=== PATIENT | female | born 1935 | race Hispanic/Latino ===

== ENCOUNTER 2017-12-26 17:39 | Inpatient (IN) | payer MEDICARE, OTHER ==
[2017-12-26 19:09] LABS: Absolute Lymphocytes (CBC) 2.3 K/uL (0.7-4.9); Absolute Monocytes 0.6 K/uL (0.1-1.3); Absolute Neutrophil 4.2 K/uL (1.8-8.0); Basophils % 0.6 % (0-1.3); Hematocrit 40.2 % (36.0-45.0); Lymphocytes % 31.4 % (15.3-44.8); MCH 30.3 pg (27.0-35.0); MPV 8.3 fL (7.6-11.3); Monocytes % 7.8 % (3.3-12.3); RBC Red Blood Cell Count 4.52 M/uL (3.86-4.86)
[2017-12-26] MEDS ORDERED: NA CHLORIDE 0.9% 1,000 ML ONE (19:14)
--- NOTE | 2017-12-26 19:28 | RAD REPORT ---
EXAM DESCRIPTION: RAD - Chest Single View - 12/26/2017 7:20 pm CLINICAL HISTORY: MALAISE Chest pain. COMPARISON: CHEST PA AND LAT 2 VIEW dated 11/10/2009 FINDINGS: Portable technique limits examination quality. The lungs are mildly emphysematous but grossly clear. The heart is normal in size. No displaced fract ures. IMPRESSION: Mild COPD.
[2017-12-26 19:29] LABS: ALT/SGPT 36 U/L (12-78); AST/SGOT 29 U/L (15-37); Albumin 3.7 g/dL (3.4-5.0); Alkaline Phosphatase 96 U/L (45-117); BUN Blood Urea Nitrogen 8 mg/dL (7-18); Bicarbonate 30 mmol/L (21-32); Bilirubin Direct 0.1 mg/dL (0-0.2); Bilirubin Total 0.4 mg/dL (0.2-1.0); Glucose Level 120 mg/dL (74-106); Lipase 241 U/L (73-393); Magnesium 2.2 mg/dL (1.8-2.4); NT PRO-BNP 57 pg/mL (<450); Potassium 3.9 mmol/L (3.5-5.1); Protein, Total 7.2 g/dL (6.4-8.2); Sodium Level 141 mmol/L (136-145); Troponin (Emerg Dept Use Only) < 0.02 ng/mL (0.0-0.045)
--- NOTE | 2017-12-26 20:30 | EDPHYS ---
Physician Documentation [facility] Name: Erika Jacobson Age: 82 yrs Sex: Female : 1935 Arrival Date: 12/26/2017 Time: 17:40 Bed 20 Private MD: ED Physician Charly Guo HPI: 12/26 20:24 This 82 yrs old Female presents to ER via EMS with complaints of General roxanna Weakness. 20:24 The patient's problem is reported as a facial droop, weakness, in the left upper roxanna extremity, in the left lower extremity, in the left side of face. Onset: The symptoms/episode began/occurred 3 day(s) ago. Duration: The episode is continuous, improving. Context: the episode(s) was witnessed, by family. The symptoms are alleviated by nothing. The symptoms are aggravated by nothing. Associated signs and symptoms: The patient has no apparent associated signs or symptoms. Severity of symptoms: At their worst the symptoms were mild moderate in the emergency department the symptoms have improved mildly. Historical: - Allergies: 17:53 No Known Allergies; hj - Home Meds: 17:53 amlodipine 5 mg tab 1 tab once daily [Active]; aspirin 81 mg Oral chew 1 tab once daily hj [Active]; atorvastatin 40 mg oral tab 1 tab once daily [Active]; losartan 100 mg oral tab 1 tab once daily [Active]; tramadol 50 mg Oral tab 1 tab every 4-6 hours [Active]; - PMHx: 17:53 Hypertension; Hyperlipidemia; CVA; hj - PSHx: 17:53 Unable to obtain; hj - Immunization history:: Adult Immunizations unknown. - Social history:: Smoking status: Patient/guardian denies using tobacco, Patient/guardian denies using alcohol. - Ebola Screening: : Patient negative for fever greater than or equal to 101.5 degrees Fahrenheit, and additional compatible Ebola Virus Disease symptoms Patient denies exposure to infectious person Patient denies travel to an Ebola-affected area in the 21 days before illness onset. - Family history:: not pertinent. ROS: 20:24 Constitutional: Negative for fever, chills, and weight loss, Eyes: Negative for injury, roxanna pain, redness, and discharge, ENT: Negative for injury, pain, and discharge, Neck: Negative for injury, pain, and swelling, Cardiovascular: Negative for chest pain, palpitations, and edema, Respiratory: Negative for shortness of breath, cough, wheezing, and pleuritic chest pain, Abdomen/GI: Negative for abdominal pain, nausea, vomiting, diarrhea, and constipation, Back: Negative for injury and pain, : Negative for injury, bleeding, discharge, and swelling, MS/Extremity: Negative for injury and deformity, Skin: Negative for injury, rash, and discoloration, Psych: Negative for depression, anxiety, suicide ideation, homicidal ideation, and hallucinations, Allergy/Immunology: Negative for hives, rash, and allergies, Endocrine: Negative for neck swelling, polydipsia, polyuria, polyphagia, and marked weight changes, Hematologic/Lymphatic: Negative for swollen nodes, abnormal bleeding, and unusual bruising. 20:24 Neuro: Positive for weakness. Exam: 20:24 Radiologist reports: see report roxanna 20:24 Constitutional: This is a well developed, well nourished patient who is awake, alert, and in no acute distress. Head/Face: Normocephalic, atraumatic. Eyes: Pupils equal round and reactive to light, extra-ocular motions intact. Lids and lashes normal. Conjunctiva and sclera are non-icteric and not injected. Cornea within normal limits. Periorbital areas with no swelling, redness, or edema. ENT: Nares patent. No nasal discharge, no septal abnormalities noted. Tympanic membranes are normal and external auditory canals are clear. Oropharynx with no redness, swelling, or masses, exudates, or evidence of obstruction, uvula midline. Mucous membranes moist. Neck: Trachea midline, no thyromegaly or masses palpated, and no cervical lymphadenopathy. Supple, full range of motion without nuchal rigidity, or vertebral point tenderness. No Meningismus. Chest/axilla: Normal chest wall appearance and motion. Nontender with no deformity. No lesions are appreciated. Cardiovascular: Regular rate and rhythm with a normal S1 and S2. No gallops, murmurs, or rubs. Normal PMI, no JVD. No pulse deficits. Respiratory: Lungs have equal breath sounds bilaterally, clear to auscultation and percussion. No rales, rhonchi or wheezes noted. No increased work of breathing, no retractions or nasal flaring. Abdomen/GI: Soft, non-tender, with normal bowel sounds. No distension or tympany. No guarding or rebound. No evidence of tenderness throughout. Back: No spinal tenderness. No costovertebral tenderness. Full range of motion. Skin: Warm, dry with normal turgor. Normal color with no rashes, no lesions, and no evidence of cellulitis. Psych: Awake, alert, with orientation to person, place and time. Behavior, mood, and affect are within normal limits. 20:24 Musculoskeletal/extremity: Exam is negative for Circulation is intact in all extremities. Sensation intact. Compartment Syndrome exam of affected extremity: is normal. 20:24 Neuro: Orientation: is normal, appropriate for stated age, no acute changes, Mentation: no acute changes, slow to respond, Memory: appropriate for stated age, no acute changes, Motor: moves all fours, Gait: not tested. seizure activity, is not displayed by the patient. Vital Signs: 17:54 BP 138 / 53; Pulse 80; Resp 18; Temp 98.1(TE); Pulse Ox 98% on R/A; Weight 58.97 kg; Height 5 ft. 4 in. (162.56 cm); Pain 0/10; 18:42 BP 147 / 44; Pulse 81; Resp 18; Pulse Ox 100% on R/A; hj 19:00 BP 149 / 50; Pulse 66; Resp 18; Pulse Ox 98% ; ea 20:30 BP 144 / 51; Pulse 70; Resp 18; Pulse Ox 98% ; ea 21:00 BP 154 / 66; Pulse 70; Resp 18; Pulse Ox 98% on R/A; ea 22:06 BP 146 / 53; Pulse 74; Resp 18; Temp 98; Pulse Ox 99% ; ea 17:54 Body Mass Index 22.31 (58.97 kg, 162.56 cm) NIH Stroke Scale Scores: 18:08 NIHSS Score: 3 20:28 NIHSS Score: 0 [facility] MDM: 18:49 Patient medically screened. [facility] 20:27 Data reviewed: vital signs, nurses notes, lab test result(s), EKG, radiologic studies, [facility] CT scan, plain films. 12/26 18:28 Order name: Basic Metabolic Panel; Complete Time: 20:23 12/26 18: Order name: CBC with Diff; Complete Time: 20:23 12/26 18: Order name: LFT's; Complete Time: 20:23 12/26 18:28 Order name: Magnesium; Complete Time: 20:23 12/26 18:28 Order name: NT PRO-BNP; Complete Time: 20:23 12/26 18:28 Order name: PT-INR; Complete Time: 20:23 12/26 18:28 Order name: Troponin (emerg Dept Use Only); Complete Time: 20:23 12/26 18:28 Order name: XRAY Chest (1 view); Complete Time: 20:23 12/26 18:54 Order name: Blood Culture Adult (2) [facility] 12/26 18:54 Order name: Urine Culture [facility] 12/26 19:10 Order name: Lipase; Complete Time: 20:23 [facility] 12/26 20:07 Order name: Urine Dipstick--Ancillary (enter results) [facility] 12/26 20:23 Order name: CT Head Brain wo Cont [facility] 12/26 18:06 Order name: EKG Electrocardiogram; Complete Time: 18:28 [facility] 12/26 18:28 Order name: EKG; Complete Time: 18:29 12/26 18:28 Order name: Cardiac monitoring; Complete Time: 18:28 12/26 18:28 Order name: IV Saline Lock; Complete Time: 18:29 12/26 18:28 Order name: Labs collected and sent; Complete Time: 18:29 12/26 18:28 Order name: O2 Per Protocol; Complete Time: 18:29 12/26 18:28 Order name: O2 Sat Monitoring; Complete Time: 18:29 12/26 18:54 Order name: Urine Dipstick-Ancillary (obtain specimen); Complete Time: 18:54 [facility] 12/26 20:32 Order name: CONS Physician Consult EDDC Administered Medications: 19:15 Drug: NS 0.9% 1000 ml Route: IV; Rate: 125 ml/hr; Site: left antecubital; ea 21:45 Follow up: IV Status: Infusion continued upon admission ea 20:40 Drug: foLIC Acid 1 mg Route: IVPB; Site: left antecubital; ea 21:47 Follow up: Response: No adverse reaction; IV Status: Completed infusion ea 20:40 Drug: Aspirin 162 mg Route: PO; ea 21:49 Follow up: Response: No adverse reaction ea Point of Care Testing: Blood Glucose: 18:26 Blood Glucose: 105 mg/dL; Ranges: Critical Glucose Levels:Adult <50 mg/dl or >400 mg/dl <40 mg/dl or >180 mg/dl Disposition: 12/26/17 20:29 Hospitalization ordered by Analy Garcia for Observation. Preliminary diagnosis is Weakness. - Bed requested for Telemetry/MedSurg (observation). - Status is Observation. ea - Condition is Stable. - Problem is new. - Symptoms have improved. UTI on Admission? No NIH Stroke Scale - NIH Stroke Score Date: 12/26/2017 Time: 18:08 Total Score = 3 1a. Level of Consciousness (LOC) - 0(Alert) 1b. Level of Consciousness (LOC) (Year \T\ Age) - 0(Both) 1c. LOC Commands (Open \T\ Closes Eyes/Industrial Health And Safety Professor) - 0(Both) 2. Best Gaze (Lateral Gaze Paresis) - 0(Normal) 3. Visual Field Loss - 0(No visual loss) 4. Facial Palsy - 2(Partial paralysis) 5a. Left Arm: Motor (10-second hold) - 0(No drift) 5b. Right Arm: Motor (10-second hold) - 0(No drift) 6a. Left Leg: Motor (5-second hold - always test supine) - 0(No drift) 6b. Right Leg: Motor (5-second hold - always test supine) - 0(No drift) 7. Limb Ataxia (finger/nose \T\ heel/mistry - test with eyes open) - 0(Absent) 8. Sensory Loss (pinprick arms/legs/face) - 0(Normal) 9. Best Language: Aphasia (description/naming/reading) - 1(Mild to moderate aphasia) 10. Dysarthria (speech clarity - read or repeat words) - 0(Normal) 11. Extinction and Inattention (visual/tactile/auditory/spatial/personal) - 0(No abnormality) Initials: NIH Stroke Scale - NIH Stroke Score Date: 12/26/2017 Time: 20:28 Total Score = 0 1a. Level of Consciousness (LOC) - 0(Alert) 1b. Level of Consciousness (LOC) (Year \T\ Age) - 0(Both) 1c. LOC Commands (Open \T\ Closes Eyes/Industrial Health And Safety Professor) - 0(Both) 2. Best Gaze (Lateral Gaze Paresis) - 0(Normal) 3. Visual Field Loss - 0(No visual loss) 4. Facial Palsy - 0(Normal) 5a. Left Arm: Motor (10-second hold) - 0(No drift) 5b. Right Arm: Motor (10-second hold) - 0(No drift) 6a. Left Leg: Motor (5-second hold - always test supine) - 0(No drift) 6b. Right Leg: Motor (5-second hold - always test supine) - 0(No drift) 7. Limb Ataxia (finger/nose \T\ heel/mistry - test with eyes open) - 0(Absent) 8. Sensory Loss (pinprick arms/legs/face) - 0(Normal) 9. Best Language: Aphasia (description/naming/reading) - 0(No aphasia) 10. Dysarthria (speech clarity - read or repeat words) - 0(Normal) 11. Extinction and Inattention (visual/tactile/auditory/spatial/personal) - 0(No abnormality) Initials: [facility] Signatures: Dispatcher [employer] [facility] Charly Guo MD MD cha Joaquin, Henry, RN RN hj Garcia, Cindy, RN RN Yisel Mclean RN RN ea Corrections: (The following items were deleted from the chart) 19:09 18:54 LIPASE+C.LAB.BRZ ordered. [facility] 21:29 20:29 Hospitalization Ordered by Analy Garcia MD for Observation. Preliminary cg diagnosis is Weakness. Bed requested for Telemetry/MedSurg (observation). Status is Observation. Condition is Stable. Problem is new. Symptoms have improved. UTI on Admission? No. [facility] 22:07 21:29 12/26/2017 20:29 Hospitalization Ordered by Analy Garcia MD for ea Observation. Preliminary diagnosis is Weakness. Bed requested for Telemetry/MedSurg (observation). Status is Observation. Condition is Stable. Problem is new. Symptoms have improved. UTI on Admission? No. cg
--- NOTE | 2017-12-26 20:30 | ER ---
Nurse's Notes [facility] Name: Erika Jacobson Age: 82 yrs Sex: Female : 1935 Arrival Date: 12/26/2017 Time: 17:40 Bed 20 Private MD: Diagnosis: Weakness Presentation: 12/26 17:45 Presenting complaint: EMS states: Monday, pt started having general weakness and hj yesterday had facial droop on the L side, was brought to [facility] and was D/C'd and was told to follow up with neurologist; today after lunch, family member noticed pt was leaning on the L side and weakness was more profound; pt is kyrgyz speaking only; hx of stroke May 2017; BGL- 142; 20g L AC;. Transition of care: patient was not received from another setting of care. Onset of symptoms was December 26, 2017 at 16:00. Risk Assessment: Do you want to hurt yourself or someone else? Patient reports no desire to harm self or others. Initial Sepsis Screen: Does the patient meet any 2 criteria? No. Patient's initial sepsis screen is negative. Does the patient have a suspected source of infection? No. Patient's initial sepsis screen is negative. Care prior to arrival: None. 17:45 Method Of Arrival: EMS: [facility] 17:45 Acuity: ISHAN 3 17:45 Note spoke with FRED Albert, code stroke was not called, S/Sx more than 12 hours;. hj Triage Assessment: 17:53 General: Appears in no apparent distress. uncomfortable, Behavior is calm, cooperative, hj appropriate for age. Pain: Denies pain. Historical: - Allergies: 17:53 No Known Allergies; hj - Home Meds: 17:53 amlodipine 5 mg tab 1 tab once daily [Active]; aspirin 81 mg Oral chew 1 tab once daily hj [Active]; atorvastatin 40 mg oral tab 1 tab once daily [Active]; losartan 100 mg oral tab 1 tab once daily [Active]; tramadol 50 mg Oral tab 1 tab every 4-6 hours [Active]; - PMHx: 17:53 Hypertension; Hyperlipidemia; CVA; hj - PSHx: 17:53 Unable to obtain; hj - Immunization history:: Adult Immunizations unknown. - Social history:: Smoking status: Patient/guardian denies using tobacco, Patient/guardian denies using alcohol. - Ebola Screening: : Patient negative for fever greater than or equal to 101.5 degrees Fahrenheit, and additional compatible Ebola Virus Disease symptoms Patient denies exposure to infectious person Patient denies travel to an Ebola-affected area in the 21 days before illness onset. - Family history:: not pertinent. Screenin:53 Abuse screen: Denies threats or abuse. Denies injuries from another. Nutritional hj screening: No deficits noted. Tuberculosis screening: No symptoms or risk factors identified. Fall Risk Fall in past 12 months (25 points). 18:08 The patient has not been NPO before screening. The patient is alert, able to follow hj commands. The patient does not exhibit slurred or garbled speech The patient is not exhibiting difficulty speaking. The patient does not exhibit difficulty understanding words. The patient is able to swallow own secretions with no drooling or need for suction. Patient tolerated one teaspoon of water. No drooling, immediate coughing, gurgling, or clearing of the throat was noted. The patient tolerated 90mL of water. No drooling, immediate coughing, gurgling, or clearing of the throat was noted. Assessment: 18:00 General: Appears in no apparent distress. uncomfortable, Behavior is calm, cooperative, hj appropriate for age. Pain: Denies pain. Neuro: Level of Consciousness is awake, alert, obeys commands, Oriented to person, place, time, situation, Appropriate for age. Cardiovascular: Capillary refill < 3 seconds Patient's skin is warm and dry. Respiratory: Airway is patent Respiratory effort is even, unlabored, Respiratory pattern is regular, symmetrical. GI: No signs and/or symptoms were reported involving the gastrointestinal system. : No signs and/or symptoms were reported regarding the genitourinary system. EENT: facial droop. Derm: No signs and/or symptoms reported regarding the dermatologic system. Musculoskeletal: Reports weakness in right arm, left arm, right leg and left leg. 18:20 Reassessment: reinforced with CN to follow up provider to sign up;. hj 18:26 Reassessment: family in room; awaiting provider to sign up;. hj 19:30 General: Appears in no apparent distress. Behavior is calm, cooperative, appropriate ea for age. Pain: Denies pain. Neuro: Level of Consciousness is awake, alert, obeys commands, Oriented to person, place, time, situation, Appropriate for age. Cardiovascular: Patient's skin is warm and dry. Respiratory: Airway is patent Respiratory effort is even, unlabored, Respiratory pattern is regular, symmetrical. GI: Abdomen is non-distended, Bowel sounds present X 4 quads. : Parent/caregiver report the patient having Daughter reports mother had two incontinent episodes last night, reported it was not like her mother to have incontinence. EENT:. Derm: No signs and/or symptoms reported regarding the dermatologic system. Musculoskeletal: Reports weakness in left leg and right leg and left arm and right arm. 20:55 Reassessment: Patient and/or family updated on plan of care and expected duration. Pain ea level reassessed. Patient is alert, oriented x 3, equal unlabored respirations, skin warm/dry/pink. 21:31 Reassessment: Patient and/or family updated on plan of care and expected duration. Pain ea level reassessed. Patient is alert, oriented x 3, equal unlabored respirations, skin warm/dry/pink. 21:49 Reassessment: Report given to Erika PALAFOX on fourth floor. ea 22:06 Reassessment: Patient and/or family updated on plan of care and expected duration. Pain ea level reassessed. Patient is alert, oriented x 3, equal unlabored respirations, skin warm/dry/pink. Vital Signs: 17:54 BP 138 / 53; Pulse 80; Resp 18; Temp 98.1(TE); Pulse Ox 98% on R/A; Weight 58.97 kg; Height 5 ft. 4 in. (162.56 cm); Pain 0/10; 18:42 BP 147 / 44; Pulse 81; Resp 18; Pulse Ox 100% on R/A; hj 19:00 BP 149 / 50; Pulse 66; Resp 18; Pulse Ox 98% ; ea 20:30 BP 144 / 51; Pulse 70; Resp 18; Pulse Ox 98% ; ea 21:00 BP 154 / 66; Pulse 70; Resp 18; Pulse Ox 98% on R/A; ea 22:06 BP 146 / 53; Pulse 74; Resp 18; Temp 98; Pulse Ox 99% ; ea 17:54 Body Mass Index 22.31 (58.97 kg, 162.56 cm) NIH Stroke Scale Scores: 18:08 NIHSS Score: 3 hj 20:28 NIHSS Score: 0 [facility] ED Course: 17:40 Patient arrived in ED. hj 17:45 Douglas Payne, VIVIENNE is Primary Nurse. hj 17:50 Triage completed. hj 17:53 Arm band placed on right wrist. hj 17:53 Patient has correct armband on for positive identification. Placed in gown. Bed in low hj position. Call light in reach. Side rails up X 1. Adult w/ patient. 18:03 EKG done, by aviation electrical technician. reviewed by Saw Ruiz MD. 3 18:03 Maintain EMS IV. Dressing intact. Good blood return noted. Site clean \T\ dry. Gauge \T\ hj site: 20 g L AC;. 18:49 Charly Guo MD is Attending Physician. [facility] 18:55 Urine Culture Sent. 19:00 Report given to VIVIENNE Morillo. 19:20 XRAY Chest (1 view) In Process Unspecified. EDMS 20:10 Yisel Mclean RN is Primary Nurse. ea 20:28 Analy Garcia MD is Hospitalizing Provider. roxanna 20:41 CT Head Brain wo Cont In Process Unspecified. EDMS 21:31 No provider procedures requiring assistance completed. Patient admitted, IV remains in ea place. Administered Medications: 19:15 Drug: NS 0.9% 1000 ml Route: IV; Rate: 125 ml/hr; Site: left antecubital; ea 21:45 Follow up: IV Status: Infusion continued upon admission ea 20:40 Drug: foLIC Acid 1 mg Route: IVPB; Site: left antecubital; ea 21:47 Follow up: Response: No adverse reaction; IV Status: Completed infusion ea 20:40 Drug: Aspirin 162 mg Route: PO; ea 21:49 Follow up: Response: No adverse reaction Point of Care Testing: Blood Glucose: 18:26 Blood Glucose: 105 mg/dL; Ranges: Outcome: 20:29 Decision to Hospitalize by Provider. roxanna 21:32 Instructed on the need for admit, Demonstrated understanding of instructions. ea 22:07 Admitted to Med/surg accompanied by tech, room 426, with chart, Report called to Erika marcus RN 22:07 Condition: stable 22:07 Patient left the ED. NIH Stroke Scale - NIH Stroke Score Date: 12/26/2017 Time: 18:08 Total Score = 3 1a. Level of Consciousness (LOC) - 0(Alert) 1b. Level of Consciousness (LOC) (Year \T\ Age) - 0(Both) 1c. LOC Commands (Open \T\ Closes Eyes/National Account Representative) - 0(Both) 2. Best Gaze (Lateral Gaze Paresis) - 0(Normal) 3. Visual Field Loss - 0(No visual loss) 4. Facial Palsy - 2(Partial paralysis) 5a. Left Arm: Motor (10-second hold) - 0(No drift) 5b. Right Arm: Motor (10-second hold) - 0(No drift) 6a. Left Leg: Motor (5-second hold - always test supine) - 0(No drift) 6b. Right Leg: Motor (5-second hold - always test supine) - 0(No drift) 7. Limb Ataxia (finger/nose \T\ heel/mistry - test with eyes open) - 0(Absent) 8. Sensory Loss (pinprick arms/legs/face) - 0(Normal) 9. Best Language: Aphasia (description/naming/reading) - 1(Mild to moderate aphasia) 10. Dysarthria (speech clarity - read or repeat words) - 0(Normal) 11. Extinction and Inattention (visual/tactile/auditory/spatial/personal) - 0(No abnormality) Initials: NIH Stroke Scale - NIH Stroke Score Date: 12/26/2017 Time: 20:28 Total Score = 0 1a. Level of Consciousness (LOC) - 0(Alert) 1b. Level of Consciousness (LOC) (Year \T\ Age) - 0(Both) 1c. LOC Commands (Open \T\ Closes Eyes/National Account Representative) - 0(Both) 2. Best Gaze (Lateral Gaze Paresis) - 0(Normal) 3. Visual Field Loss - 0(No visual loss) 4. Facial Palsy - 0(Normal) 5a. Left Arm: Motor (10-second hold) - 0(No drift) 5b. Right Arm: Motor (10-second hold) - 0(No drift) 6a. Left Leg: Motor (5-second hold - always test supine) - 0(No drift) 6b. Right Leg: Motor (5-second hold - always test supine) - 0(No drift) 7. Limb Ataxia (finger/nose \T\ heel/mistry - test with eyes open) - 0(Absent) 8. Sensory Loss (pinprick arms/legs/face) - 0(Normal) 9. Best Language: Aphasia (description/naming/reading) - 0(No aphasia) 10. Dysarthria (speech clarity - read or repeat words) - 0(Normal) 11. Extinction and Inattention (visual/tactile/auditory/spatial/personal) - 0(No abnormality) Initials: roxanna Signatures: Dispatcher [employer] Charly Biswas MD MD cha Joaquin, Henry, RN RN Yisel Kang, RN RN Aaliyah Cartagena 3
[2017-12-26 20:44] LABS: Urine Blood TRACE (NEG); Urine Glucose NEGATIVE (NEG); Urine Protein NEGATIVE (NEG); Urine pH 6.5 (5.0-7.0)
--- NOTE | 2017-12-26 20:48 | RAD REPORT ---
EXAM DESCRIPTION: CT - Head Brain Wo Cont - 12/26/2017 8:42 pm CLINICAL HISTORY: WEAKNESS CVA COMPARISON: No comparisons TECHNIQUE: All CT scans are performed using dose optimization technique as appropriate and may inclu de automated exposure control or mA/KV adjustment according to patient size. FINDINGS: No intracranial hemorrhage, hydrocephalus or extra-axial fluid collection.Mild generalized brain atrophy is present with mild periventricular and deep white matter chronic microvascular ische kishore changes.No areas of brain edema or evidence of midline shift. The paranasal sinuses and mastoids are clear. The calvarium is intact. IMPRESSION: No acute intracranial abnormality.
[2017-12-26] MEDS ORDERED: ASPIRIN 81 MG CHEWABLE TABLET ONE (21:04)
[2017-12-26] MEDS ORDERED: FOLIC ACID 5 MG/ML VIAL ONE (21:05)
[2017-12-26] MEDS ORDERED: ONDANSETRON 4 MG/2 ML VIAL IV PRN (21:29)
--- NOTE | 2017-12-26 21:43 | P.HP ---
Certification for Inpatient Patient admitted to: Observation With expected LOS: <2 Midnights Practitioner: I am a practitioner with admitting privileges, knowledge of patient current condition, hospital course, and medical plan of care. Services: Services provided to patient in accordance with Admission requirements found in Title 42 Section 412.3 of the Code of Federal Regulations Patient History Date of Service: 12/26/17 Reason for admission: CVA History of Present Illness: Ms Zhou is an 82-year-old woman hypertension, dyslipidemia, and previous CVA , who wad at [facility] 2 days ago when she was noticed to start leaning to her left side. Her daughter took her blood pressure, and pain was about 180s of systolic. She received her blood pressure medication, and BP decreased. The next day, the patient remained symptomatic. She also start to be confused and having left facial drop. She went to [place] [facility], and she was discharged with an order to see a neurologist. Today her daughter got concerned again there was no improvement, and decided to bring the patient to ER for evaluation. Allergies No Known Allergies Allergy (Verified 03/04/15 08:55) Home medications list reviewed: Yes Home Medications: Atenolol [Tenormin*] 50 mg PO BID 03/04/15 Losartan Potassium [Cozaar*] 50 mg PO DAILY 03/04/15 Pravastatin [Pravachol*] 20 mg PO BEDTIME 03/04/15 hydroCHLOROthiazide [Hydrochlorothiazide*] 12.5 mg PO DAILY 03/04/15 - Past Medical/Surgical History -: Hypertension -: Dyslipidemia -: CVA Past Surgical History: Unable to obtain - Family History Family History: Reviewed- Non-Contributory - Social History Smoking Status: Never smoker Alcohol use: No CD- Drugs: No Place of Residence: Home Review of Systems 10-point ROS is otherwise unremarkable Physical Examination - Physical Exam General: Alert, In no apparent distress, Confused HEENT: Atraumatic, Mucous membr. moist/pink, EOMI, Sclerae nonicteric Neck: Supple, 2+ carotid pulse no bruit, No LAD, Without JVD or thyroid abnormality Respiratory: Clear to auscultation bilaterally, Normal air movement Cardiovascular: Normal S1 S2, No gallops Gastrointestinal: Normal bowel sounds, No tenderness Musculoskeletal: No tenderness Integumentary: No rashes Neurological: Normal speech, Normal tone, Normal affect, Abnormal strength ( Left arm 3/5, left leg 4/5, left facial drop) Lymphatics: No axilla or inguinal lymphadenopathy - Studies Laboratory Data (last 24 hrs) 12/26/17 18:54: Lipase Cancelled 12/26/17 18:25: PT 11.8, INR 1.00 12/26/17 18:25: WBC 7.3, Hgb 13.7, Hct 40.2, Plt Count 326 12/26/17 18:25: Sodium 141, Potassium 3.9, BUN 8, Creatinine 0.60, Glucose 120 H , Magnesium 2.2, Total Bilirubin 0.4, AST 29, ALT 36, Alkaline Phosphatase 96, Lipase 241 Assessment and Plan - Problems (Diagnosis) (1) CVA (cerebral vascular accident) Current Visit: Yes Status: Acute Qualifiers: CVA mechanism: unspecified Qualified Code(s): I63.9 - Cerebral infarction, unspecified (2) Hypertension Current Visit: Yes Status: Acute Qualifiers: Hypertension type: essential hypertension Qualified Code(s): I10 - Essential (primary) hypertension (3) Dyslipidemia Current Visit: Yes Status: Acute - Plan The patient will be admitted to the hospital due to possible acute/subacute CVA. CT head shows no acute abnormality. Will order brain MRI, echo, bilateral carotid Doppler, start aspirin, statins, keep her NPO until swallow evaluation, consult neurologist for evaluation recommendation. - Advance Directives Does patient have a Living Will: No Does patient have a Durable POA for Healthcare: No - Code Status/Comfort Care Code Status Assessed: Yes Code Status: Full Code
[2017-12-26] MEDS: NA CHLORIDE 0.9% 1,000 ML IV SCH (23:27)
[2017-12-27 04:37] LABS: Absolute Lymphocytes (CBC) 2.2 K/uL (0.7-4.9); Absolute Monocytes 0.5 K/uL (0.1-1.3); Absolute Neutrophil 4.3 K/uL (1.8-8.0); Basophils % 0.3 % (0-1.3); Eosinophils % 2.3 % (0-4.4); Hematocrit 36.5 % (36.0-45.0); Lymphocytes % 30.8 % (15.3-44.8); MCH 30.6 pg (27.0-35.0); MCV 89.4 fL (80-100); MPV 8.2 fL (7.6-11.3); RBC Red Blood Cell Count 4.08 M/uL (3.86-4.86)
[2017-12-27 04:53] LABS: BUN Blood Urea Nitrogen 11 mg/dL (7-18); Bicarbonate 29 mmol/L (21-32); Glucose Level 105 mg/dL (74-106); HDL Cholesterol 38 mg/dL (40-60); LDL Cholesterol, Calculated 67 (<130); Potassium 3.7 mmol/L (3.5-5.1); Sodium Level 142 mmol/L (136-145)
[2017-12-27] MEDS: NA CHLORIDE 0.9% 1,000 ML IV SCH ×2 (05:20→21:35)
--- NOTE | 2017-12-27 06:04 | EKG ---
Test Date: 2017-12-26 Test Time: 17:46:10 Psych Tech: ONEAL MEASUREMENT RESULTS: Intervals: Rate: 79 ND: 142 QRSD: 94 QT: 402 QTc: 460 [place]: P: 62 ND: 142 QRS: -57 T: 65 INTERPRETIVE STATEMENTS: Normal sinus rhythm Left axis deviation Abnormal ECG No previous ECG available for comparison Electronically Signed On 12-27-17 06:03:40 CLIENT TECHNICAL PROFESSIONAL by Emery Gonzalez
[2017-12-27] MEDS ORDERED: PNEUMOCOCCAL VACCINE 0.5 ML IMVAC ONE (08:00)
--- NOTE | 2017-12-27 09:18 | RAD REPORT ---
EXAM DESCRIPTION: US - CP - 12/27/2017 9:02 am CLINICAL HISTORY: CVA COMPARISON: Brain W/Wo Cont dated 12/27/2017; MRA Neck W/Wo Cont dated 12/27/2017 TECHNIQUE: Real-time sonographic evaluation of both carotid systems was performed. Doppler interroga tion was performed with waveform tracing bilaterally. FINDINGS: Normal high resistance waveforms are noted in both external carotid arteries. The common c arotid arteries and internal carotid arteries show normal low resistance waveforms. Mild intimal thickening is present in both internal carotid arteries with mild hard plaquing seen par ticularly involving both carotid bulbs. Peak systolic and end diastolic velocity values and the ICA/C CA ratios are in the non-hemodynamically significant range. Antegrade flow seen in both vertebral arteries. IMPRESSION: Mild atherosclerotic plaquing is seen involving both proximal internal carotid arteries. No evidence of a hemodynamically significant stenosis.
--- NOTE | 2017-12-27 09:45 | RAD REPORT ---
EXAM DESCRIPTION: MRI - Brain W/Wo Cont - 12/27/2017 9:24 am CLINICAL HISTORY: R/O ACUTE STROKE CVA CVA COMPARISON: MRA Head Wo Cont dated 12/27/2017; Head Brain Wo Cont dated 12/26/2017 TECHNIQUE: Multi-sequence, multiplanar MR imaging of the brain was performed with contrast. FINDINGS: No intracranial hemorrhage, hydrocephalus, or extra-axial fluid collection. No edema or sh ift of midline structures. 12 x 13 mm nonenhancing lesion is present in the medial left parietal lobe with evidence of a hemosiderin ring suspected to represent a cavernoma. Large area of restricted dif fusion is present in the medial right frontal lobe measuring 4.4 x 2.2 cm with correlate diminished A DC map signal compatible with acute nonhemorrhagic CVA. The midline structures are normally formed. Mastoid air cells and paranasal sinuses are clear. Post-contrast images show no abnormal enhancement to suggest tumor or infection. IMPRESSION: Acute nonhemorrhagic CVA is seen medial right frontal lobe (4.4 x 2.2 cm). 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 Findings were discussed with Dr. Jacobsen 9:30 a.m. 12/27/2017 by telephone.
--- NOTE | 2017-12-27 09:51 | RAD REPORT ---
EXAM DESCRIPTION: MRI - MRA Head Wo Cont - 12/27/2017 9:24 am CLINICAL HISTORY: R/O acute CVA CVA COMPARISON: Head Brain Wo Cont dated 12/26/2017 FINDINGS: 3D noncontrast [id number] MR angiography of the [place] was performed. No aneurysm, flow-limiting stenosis or vascular malformation is seen. Forward flow seen in codominant vertebral arteries. The visualized dural venous sinuses appear patent. IMPRESSION: No significant flow abnormality of the [place] is identified.
--- NOTE | 2017-12-27 09:58 | RAD REPORT ---
EXAM DESCRIPTION: MRI - MRA Neck W/Wo Cont - 12/27/2017 9:24 am CLINICAL HISTORY: R/O ACUTE STROKE CVA CVA COMPARISON: Head Brain Wo Cont dated 12/26/2017; Brain W/Wo Cont dated 12/27/2017; MRA Head Wo Cont dated 12/27/2017 FINDINGS: Contrast enhance 2D [id number] MR angiography of the neck vessels was performed. A left aortic arch is present with 3 vessel origin of the great arteries. Mild atherosclerotic narrow ing is seen at the origin of the left common carotid artery and left subclavian artery. No significant common carotid artery stenosis seen on either side. Mild atherosclerotic narrowing is seen at the origins of both internal carotid arteries without significant stenosis seen. Moderate rig ht sided narrowing seen at the origin of the right external carotid artery. Forward flow is seen in the partially codominant vertebral arteries. Moderate narrowing of distal rig ht vertebral artery is seen. IMPRESSION: No significant carotid stenosis is identified bilaterally.
[2017-12-27] MEDS: ENOXAPARIN 40 MG/0.4 ML SQ SCH (10:00)
--- NOTE | 2017-12-27 11:44 | RAD REPORT ---
EXAM DESCRIPTION: RAD - Barium Swallow Modified - 12/27/2017 11:35 am CLINICAL HISTORY: Dysphagia COMPARISON: No comparisons TECHNIQUE: The patient was given liquid, semi-solid and solid forms of barium. Lateral view fluorosc opic imaging was performed in conjunction with speech pathology service. FINDINGS: Pooling the vallecular nectar, honey, purred, solid Significant oral hold of pureed and solid Delay in swallow onset of greater than 16 sec with purred No penetration or aspiration was observed Barium tablet was expelled Total fluoroscopy time: 7 minutes 39 seconds.
[2017-12-27] MEDS: CLOPIDOGREL 75 MG TABLET PO SCH (12:17)
[2017-12-27] MEDS: ASPIRIN EC 81 MG TAB PO SCH (12:17)
--- NOTE | 2017-12-27 13:53 | ECHO ---
HEIGHT: 4 ft 3 in WEIGHT: 132 lb 3.2 oz DATE OF STUDY: 12/27/[address]: Analy Michael MD 2-DIMENSIONAL: YES M.MODE: YES DOPPLER: YES COLOR FLOW: YES TDS: NO PORTABLE: NO DEFINITY: NO BUBBLE STUDY: NO DIAGNOSIS: STROKE CARDIAC HISTORY: CATHERIZATION: NO SURGERY: NO PROSTHETIC VALVE: NO PACEMAKER: NO MEASUREMENTS (cm) DIASTOLIC (NORMALS) SYSTOLIC (NORMALS) IVSd 1.0 (0.6-1.2) LA Diam 3.1 (1.9-4.0) LVEF 67% LVIDd 3.6 (3.5-5.7) LVIDs 2.3 (2.0-3.5) %FS 36% LVPWd 1.1 (0.6-1.2) Ao Diam 2.8 (2.0-3.7) 2 DIMENSIONAL ASSESSMENT: RIGHT ATRIUM: NORMAL LEFT ATRIUM: NORMAL RIGHT VENTRICLE: NORMAL LEFT VENTRICLE: NORMAL TRICUSPID VALVE: NORMAL MITRAL VALVE: NORMAL PULMONIC VALVE: NORMAL AORTIC VALVE: NORMAL PERICARDIAL EFFUSION: NONE AORTIC ROOT: NORMAL LEFT VENTRICULAR WALL MOTION: NORMAL DOPPLER/COLOR FLOW: IMPAIRED LEFT VENTRICULAR RELAXATION. COMMENTS: NORMAL 2D ECHOCARDIOGRAM. IMPAIRED LEFT VENTRICULAR RELAXATION. OTHERWISE NORMAL CARDIAC DOPPLER. TECHNOLOGIST: Edwardo MORALES
[2017-12-27] MEDS: FOLIC ACID 1 MG TABLET PO SCH (14:37)
--- NOTE | 2017-12-27 18:14 | PN ---
Date of Progress Note: 12/27/2017 Code Status: Full code. Subjective: The patient is seen and examined. Chart reviewed, and case discussed with RN and Dr. Cedric calzada. Daughter at the bedside. Treatment plan explained. All questions were answered. Spoke wit h Dr. Blankenship, who reported the acute CVA in the right medial frontal lobe. The patient not doing well with swallowing and recommended to go through with modified barium swallow study. Review of Systems: Negative except as per HPI. Medications: List reviewed. Physical Examination: Vital Signs: Temperature 98.7, heart rate 80, blood pressure 182/74, respirations 16, O2 of 95% on r oom air. General: An awake, alert, oriented x3, elderly female, obese, somewhat ill appearing. CV: S1, S2. Regular rate and rhythm. Peripheral pulses present. Respiratory: Clear to auscultation bilaterally. No wheezing or stridor. No use of accessory muscle s. Gastrointestinal: Abdomen is soft, nontender, nondistended. Positive bowel sounds. No guarding or rigidity. Extremities: No clubbing, cyanosis, or edema. Neuro: The patient has left-sided weakness, 4/5 left upper extremity and 0/5 left lower extremity. The patient does have facial asymmetry and some difficulty following commands and word-finding diffic ulty. Laboratory Data: Sodium 142, potassium 3.7, chloride 106, CO2 of 29, BUN 11, creatinine 0.5, glucose 105, calcium 7.7. Triglycerides 148, cholesterol 135, LDL 67, HDL 38. WBC 7.2, H and H 12.5 and 36 .5, platelets 302, neutrophils 59%. MRI of the brain; acute nonhemorrhagic CVA, medial right frontal lobe, 4.4 x 2.2 cm; medial left parietal lobe cavernoma suspected. Brain MRI with MRA; moderate joshua notic narrowing present involving the distal right vertebral artery just proximal to the basilar wilfrido ry. Neck MRA shows no significant carotid stenosis identified bilaterally. Carotid artery ultrasoun d showed mild atherosclerotic plaquing involving both proximal internal carotid arteries. No evidenc e of hemodynamically significant stenosis. Assessment: An 82-year-old female with: 1.Acute cerebrovascular accident, medial right frontal lobe. We will continue with aspirin. Add Pl avix and folic acid. We will continue with stroke workup. Appreciate Dr. Hunter's input. We will continue statin. The patient will need PT and OT, and we will likely refer to inpatient rehab. Spe ech Therapy recommended modified barium swallow study. 2.Essential hypertension. We will allow permissive hypertension due to acute stroke. 3.Dyslipidemia. Continue statin. Lipid panel reviewed. 4.Obesity, BMI 35.7. 5.History of previous cerebrovascular accident. MRI did show cavernoma. 6.Distal right vertebral artery stenosis. 7.Gastrointestinal and deep venous thrombosis prophylaxis addressed, Lovenox and PPI. Plan: Continue evaluation. Refer to inpatient rehab. We will repeat modified barium swallow study in a.m. Length of stay, greater than 2 midnights. /LEEANNE Voice ID: [id number] Report ID: [id number]
[2017-12-27] MEDS: ATORVASTATIN 20 MG TAB PO SCH (21:21)
[2017-12-28 04:08] LABS: Absolute Lymphocytes (CBC) 2.4 K/uL (0.7-4.9); Absolute Monocytes 0.5 K/uL (0.1-1.3); Absolute Neutrophil 3.4 K/uL (1.8-8.0); Basophils % 0.6 % (0-1.3); Eosinophils % 3.7 % (0-4.4); Hematocrit 37.2 % (36.0-45.0); Lymphocytes % 36.1 % (15.3-44.8); MCH 30.6 pg (27.0-35.0); MCV 89.5 fL (80-100); RBC Red Blood Cell Count 4.16 M/uL (3.86-4.86)
[2017-12-28 04:24] LABS: ALT/SGPT 30 U/L (12-78); AST/SGOT 24 U/L (15-37); Albumin 3.2 g/dL (3.4-5.0); Alkaline Phosphatase 90 U/L (45-117); BUN Blood Urea Nitrogen 7 mg/dL (7-18); Bicarbonate 27 mmol/L (21-32); Bilirubin Total 0.6 mg/dL (0.2-1.0); Glucose Level 99 mg/dL (74-106); Potassium 3.6 mmol/L (3.5-5.1); Protein, Total 6.3 g/dL (6.4-8.2); Sodium Level 142 mmol/L (136-145)
[2017-12-28] MEDS: ASPIRIN EC 81 MG TAB PO SCH (09:00)
[2017-12-28] MEDS: ENOXAPARIN 40 MG/0.4 ML SQ SCH (09:00)
[2017-12-28] MEDS: FOLIC ACID 1 MG TABLET PO SCH (09:01)
[2017-12-28] MEDS: CLOPIDOGREL 75 MG TABLET PO SCH (09:01)
--- NOTE | 2017-12-28 16:11 | PN ---
Date of Progress Note: 12/28/2017 Subjective: The patient seen and examined, chart reviewed, and case discussed with RN. The patient seems to be more responsive today in terms of following commands and her speech, has some improved st rength in her lower extremity. Review of Systems: Negative except as above. Medications: List reviewed. Physical Examination: Vital Signs: Temperature 98.5, heart rate 72, blood pressure 150/70, respirations 18, O2 98% on room air. General: Awake, alert, oriented x3. She is in mild distress. Elderly female, ill-appearing. CV: S1 and S2. Regular rate and rhythm. Peripheral pulses present. Respiratory: Moving air well bilaterally. No wheezing or stridor. Gastrointestinal: Abdomen is soft, nontender, nondistended. Positive bowel sounds. Extremities: No clubbing, cyanosis, or edema. Neuro: The patient has left-sided weakness. Left lower extremity 3/5 and left upper extremity is no w 5/5. Right upper and lower extremity unaffected and strength is normal with major muscle groups. Laboratory Data: Sodium 142, potassium 3.6, chloride 107, CO2 27, BUN 7, creatinine 0.5, glucose 99, calcium 8.1, albumin 3.2. WBC 6.7, H and H 12.7 and 37.2, platelet 308. Blood cultures no growth t o date. Urine culture is pending. Echocardiogram shows EF 67%. Assessment And Plan: An 82-year-old female with: 1.Acute cerebrovascular accident, medial right frontal lobe. Continue with aspirin, Plavix, folic a anca. Stroke workup has been completed. Dr. Hunter on the case. We will continue PT, OT, and spee ch therapy. The patient will likely need to go to inpatient rehab. We will discuss with social work er. 2.Essential hypertension. We will allow permissive hypertension due to acute stroke. 3.Dyslipidemia. Continue statin. 4.Obesity, BMI 35.7. 5.History of previous cerebrovascular accident. 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 6.Distal right vertebral artery stenosis. We will discuss further with Neurology to determine if th e patient is a candidate for intervention. 7.Gastrointestinal and deep venous thrombosis prophylaxis with PPI and Lovenox. 8.Dysphagia. The patient currently on modified diet. We will repeat modified barium swallow study. Appreciate speech therapy input. We will discontinue IV fluids. Anticipate discharge to rehab in the next 48 to 72 hours. BRISA Voice ID: [id number] Report ID: [id number]
[2017-12-28] MEDS: ATORVASTATIN 20 MG TAB PO SCH (20:31)
--- NOTE | 2017-12-28 23:40 | CON ---
Reason For Consultation: Consultation called because of stroke. History Of Present Illness: Ms. Zhou is an 82-year-old patient with uncontrolled hypertension an d dyslipidemia and a prior stroke, who was at [facility] this Monday when she developed left-sided weakne ss. She was leaning to the left. Her daughter evaluated her blood pressure, found to be systolic in 180s. The patient did not seek medical attention at that point. Next day, her left face began to d rosa along with a left-sided weakness, and she came to [facility]. This is [facility]. She was seen in the emergency room and discharged and told to follow up with a neurologist. S he did not improve and came to the emergency room with [facility]. [facility] which showed no acute ischemic hemorrhagic change. However, subsequent brain MRI , after she was admitted for stroke workup, showed an acute nonhemorrhagic 4.4 x 2.2-cm stroke in the right medial frontal lobe. There was also a medial left parietal lobe cavernoma suspected, and that measured 12 x 13 mm and was nonenhancing. There was evidence of hemosiderin suspected to be caverno ma. The patient's acute nonhemorrhagic stroke does match her left-sided symptoms. Her carotid arter y ultrasound showed mild atherosclerotic plaque involving both proximal arteries, but no evidence of hemodynamically significant stenosis. Her magnetic resonance angiogram of the brain showed no signif icant flow abnormalities in the [place]. The patient's family said she was taking aspirin o ff and on along with her medications, not regularly taking those medications. Please note, in terms of additional studies, the magnetic resonance angiogram of her neck showed no significant abnormaliti es there. She did have also a modified barium study after admission that showed pooling in the andersen culae from nectar, honey-thick, pureed, and solids. There was a significant hold orally of those pur eed and solid materials. There was a delay in swallowing onset of more than 16 seconds with pureed f oods, but there was no penetration or aspiration. She is being seen by the Physical, Occupational, a nd Speech Therapy Service. Note, echocardiogram showed ejection fraction 67% and was normal except f or impaired left ventricular relaxation. Past Medical History: As indicated, including hypertension, dyslipidemia, and prior stroke. Medications: At home; 1.Tenormin 50 mg twice daily. 2.Cozaar 50 mg daily. 3.Pravachol 20 mg at bedtime. 4.Hydrochlorothiazide 12.5 mg daily. Allergies: NO KNOWN DRUG ALLERGIES. Family History: Noncontributory. Social History: No alcohol, tobacco, or IV drug use. No cigarette smoking. Review of Systems: The patient was fully independent without any deficits prior to this event, with no fevers, chills, n ausea, vomiting, myalgias, arthralgias, headache, weight change, rash, psychiatric complaints, or gas trointestinal or genitourinary complaints. Physical Examination: Vital Signs: Blood pressure 164/74, pulse 70, respiratory rate 16, temperature 98.2, oxygen saturati on 94% on room air, weight 130 pounds, and height 4 feet 3 inches. General: Ms. Zhou is resting in bed. She is in no acute distress. HEENT: She is normocephalic, atraumatic. Sclerae anicteric. Oropharynx is moist and pink. Neck: Supple. Chest: Clear. Heart: Regular. Extremities: Show no edema or cyanosis. Neurological: She communicates in [place], but she is alert and oriented to situation, place, and pe rson and follows all commands appropriately. Cranial nerves show decrease of the left nasolabial fol d and decreased left corner of her mouth. However, she has good excursions and smiling. She appears to have a central 7th nerve involvement. Motor examination in the left upper extremity about 4+ out of 5 strength proximally and distally and left lower extremity similarly so around 4+ out of 5 stren gth proximally and distally. On the right side, 5 out of 5 proximally and distally in upper and lowe r extremities. Sensation difficult to assess. Appears to be slightly less in the left upper and low er extremity compared to the right side as well as the left face should be noted is less compared to the right side in distributions V1, V2, and V3. Coordination is slightly abnormal on the left with m ild dysmetria compared to the right side and upper and lower extremities. Note, NIH Stroke Scale of 4. Laboratory Studies: Complete blood count with differential normal, that has been repeated 3 times. Coagulation panel is normal. Chemistries show slightly elevated glucose of 120, calcium slightly low at 8.1, LDL cholesterol 67, HDL cholesterol 38. Liver function studies are normal. Urinalysis show s trace blood. Cultures; no growth from urine or blood. Her chest x-ray shows mild COPD pattern, an d electrocardiogram shows normal sinus rhythm with left axis deviation. Assessment: Ms. Zhou is an 82-year-old patient with poorly-controlled hypertension, dyslipidemia , and poorly compliant with aspirin daily. A right frontal stroke producing left-sided face, arm, an d leg slight numbness, weakness, and some mild incoordination. She reportedly also had transient con fusion, but the patient is oriented at this point, although some difficulty following commands, likel y because of language barrier. Plan: 1.The patient should have aggressive physical, occupational, and speech therapy. 2.Plavix 75 mg daily along with aspirin 81 mg daily. 3.Folate 1 mg daily in addition to Lipitor 40 mg at bedtime, and the patient was told of the importa nce of hydration, changing diet, and rest in terms of sleep as factors to decrease the risk of stroke . She should be able to qualify for acute inpatient rehabilitation perhaps for 2 or 3 weeks dependin g on progress. The patient may be discharged following that and follow up in Dr. Hunter's clinic 1 month later. PETEY/LEEANNE Voice ID: [id number] Report ID: [id number]
[2017-12-29 06:15] LABS: ALT/SGPT 31 U/L (12-78); AST/SGOT 27 U/L (15-37); Albumin 3.4 g/dL (3.4-5.0); Alkaline Phosphatase 95 U/L (45-117); BUN Blood Urea Nitrogen 9 mg/dL (7-18); Bicarbonate 30 mmol/L (21-32); Bilirubin Total 0.6 mg/dL (0.2-1.0); Glucose Level 109 mg/dL (74-106); Potassium 3.9 mmol/L (3.5-5.1); Protein, Total 6.6 g/dL (6.4-8.2); Sodium Level 141 mmol/L (136-145)
[2017-12-29] MEDS: FOLIC ACID 1 MG TABLET PO SCH (11:28)
[2017-12-29] MEDS: ENOXAPARIN 40 MG/0.4 ML SQ SCH (11:28)
[2017-12-29] MEDS: CLOPIDOGREL 75 MG TABLET PO SCH (11:28)
[2017-12-29] MEDS: ASPIRIN EC 81 MG TAB PO SCH (11:28)
--- NOTE | 2017-12-29 11:35 | RAD REPORT ---
EXAM DESCRIPTION: RAD - Barium Swallow Modified - 12/29/2017 11:28 am CLINICAL HISTORY: dysghagia COMPARISON: No comparisons TECHNIQUE: The patient was given liquid, semi-solid and solid forms of barium. Lateral view fluorosc opic imaging was performed in conjunction with speech pathology service. FINDINGS: No penetration or aspiration was observed with any consistency tested. Pureed bolus was h eld in mouth for 60+ seconds. Delay in swallow present and ranged from 7-12 sec with purred, soft so lid, and solid. Total fluoroscopy time: 8 minutes and 9 seconds
--- NOTE | 2017-12-30 05:57 | DS ---
Date of Discharge: 12/29/2017 Consultants: Dr. Hunter with Neurology. Admitting Diagnoses: 1.Acute cerebrovascular accident. 2.Essential hypertension. 3.Dyslipidemia. Discharge Diagnoses: 1.Acute cerebrovascular accident, right medial frontal lobe. 2.Essential hypertension. 3.Dyslipidemia. 4.Obesity, body mass index 35.7. 5.Distal right ventricular artery stenosis. 6.Dysphagia, on mechanically ground diet. 7.History of previous cerebrovascular accident. Hospital Course: The patient is an 82-year-old female with history of hypertension, dyslipidemia, hi story of previous cerebrovascular accident, who was admitted to the hospital for left-sided weakness. The patient was found to have elevated blood pressure. Workup revealed stroke in the temporal righ t medial lobe. Workup was initiated. She was started on the stroke guidelines with dual anti-platel et therapy with aspirin and Plavix. Dr. Hunter with Neurology was also consulted. The patient had a workup including echocardiogram which showed an ejection fraction of 67%. Neck MRA showed no sign ificant carotid stenosis identified bilaterally. The patient's brain MRA did show some moderate sten otic narrowing involving the distal right ventricular artery proximal to the basilar artery. The pat ient did have some dysphagia. Swallow study was obtained, and initially was started on liquids only as the patient was pocketing food, however with continued speech therapy and improvement in her sympt oms and repeat modified barium swallow study, she was able to be started on mechanically ground diet. The patient was working well with physical therapy. She was then referred for inpatient rehab and was accepted. The patient was then cleared for discharge from Neurology standpoint and was discharge d to inpatient rehab in a stable condition. Activity: As per rehab. Medications: As per medication reconciliation list. Followup: Follow up with primary care physician in 2 weeks. Follow up with neurologist, Dr. Monet mccormick, in 2 weeks. Return to ER for worsening condition. Diet: Mechanically ground. Physical Examination: General: Awake, alert, oriented to self and place, elderly female. CV: S1, S2. No murmurs. Respiratory: Moving air well bilaterally. Abdomen: Soft, nontender, nondistended. Positive bowel sounds. Extremities: No clubbing, cyanosis, or edema. Neuro: The patient has some decreased left lower extremity strength, around 4/5, and some facial dyllan op on the left side. Total time spent discharging the patient was 33 minutes. BRISA Voice ID: [id number] Report ID: [id number]
== END 2017-12-29 18:20 | DRG 65 ==
LOC: ER 17:39 → ERHOLD 20:30 → INTOOBSV 20:30 → OBSVTOIN 20:30 → 4TH 21:51 → OBSVTOIN 12-27 10:43
PROVIDERS: ADMIT Internal Medicine; ATTEND Family Medicine
DX: I63.9 Cerebral infarction, unspecified (principal); G81.94 Hemiplegia, unspecified affecting left nondominant side; R13.10 Dysphagia, unspecified; R29.810 Facial weakness; I10 Essential (primary) hypertension; E66.9 Obesity, unspecified; Z68.35 Body mass index [BMI] 35.0-35.9, adult; E78.5 Hyperlipidemia, unspecified; I25.10 Atherosclerotic heart disease of native coronary artery without angina pectoris
CPT/HCPCS: 36415; 70450; 70544; 70549; 70553; 71045; 74230; 80048; 80053; 80061; 80076; 81003; 82962; 83690; 83735; 83880; 84484; 85025; 85610; 87040; 87086; 87088; 93005; 93306; 93880; 96361; 96365; 97163; 99285; A9577; G0378; J1650; J7030

== ENCOUNTER 2017-12-29 14:52 | Inpatient (IN) | payer MEDICARE ==
--- NOTE | 2017-12-29 15:54 | R.PREADM ---
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 Conrado Hunter M.D. MR# [id number] NAME AMY WOMACK AD[address]ESS [address] [place] [address] DATE OF 1935 AGE 82 SSN# [id number] MARITAL STATUS RACE ADMIT FROM 02 - [facility] PRE-HOSPITAL LIVING SETTING 01 - Home (private home/apt. board/care, assisted living, longterm, transitional living) HOME TYPE AND DETAILS Type of home: single family house # of levels in the residence: 1 # of steps within the residence: 0 # of steps to enter the residence: 2 PRE-HOSPITAL LIVING WITH Family/Relatives FAMILY SUPPORT Yes PRIMARY FAMILY CONTACT NAME ILANA FAGAN PRIMARY FAMILY CONTACT PHONE PRIMARY FAMILY CONTACT RELATIONSHIP Son PHONE PRIMARY FAMILY CONTACT ON ADM.? no IS PRIMARY FAMILY CONTACT AUTH. REP.? no 1ST EMERGENCY CONTACT ILANA FAGAN 1ST CONTACT PHONE 1ST CONTACT RELATIONSHIP Son PHONE 1ST CONTACT ON ADM. no IS 1ST CONTACT AUTH. REP.? no PHONE 2ND CONTACT ON ADM.? no PATIENT EMPLOYMENT STATUS Retired (for age) PATIENT EMPLOYER No Employer PAYOR INFORMATION: 1ST PAYOR NAME AARP MEDICARE COMPLETE 1ST PAYOR PHONE [phone] 1ST PAYOR INJURY/ILLNESS DUE TO ACCIDENT? No ANOTHER CONSTITUTION PARTY RESPONSIBLE? No PRIMARY REHAB/ACUTE DIAGNOSIS: RIGHT CVA ONSET DATE 12/27/2017 REHAB IMPAIRMENT CATEGORY (WATSON): 01 Stroke (STR) MEETS 60% rule AFFECTED EXTREMITIES: LLE, and LUE PRIMARY DIAGNOSIS-RELATED SURGERIES: N/A COMORBID REHAB/ACUTE DIAGNOSES: - N/A HYPERTENSION DYSLIPIDEMIA CVA INTERVENTIONS: - Hypertension Fluid management Medications VS RISK FOR COMPLICATIONS: - Hypertension CVA Hypotension [place] TIA SUMMARY OF ACUTE HOSPITALIZATION: Pt. is a 82 yo Right-handed ,female. On 12/27/2017 Pt. presented to [facility] with sudden onset of left-side weakne ss. On 12/27/2017 she was admitted to [facility] with diagnosis RIGHT CVA. her impairment category is Stroke 01 - Left Body (Right Brain) (01.1). Pre-morbidly, Pt. was independent/mod-I in Transfers Control, Communication, Social Cognition, Self-C are, Locomotion, and Sphincter Control; and she had good Sphincter Control. Currently, she has deficits of Transfers Control, Balance, Locomotion, Endurance, Safety Awareness, a nd Self-Care. Pt. is now referred to [facility] for acute in-patient rehabilitation in order to maximize patient's functional independence in activities of daily living, strength, ROM, and mobi lity. Patient has realistic goal of being discharged at assistance level 6-Rosalind to reside at Home with Fam wenceslao/Relatives. Ms Amy Jacobson is an 82 year old female that lives in a 1 [address] home with 2 steps to enter. She goes to grocery store several times a week. On 12/27/2017, Ms Abelardo Jacobson had a Right CVA and was admitted to [facility] and treated. She is now medically stable but in need of 24-hour nursing, doctor supervision and oversite participate in 3hours of therapy a day/15 hours per week and receive care with an intensive interdisciplinary approach. PAST MEDICAL HISTORY DYSLIPIDEMIA HYPERTENSION CVA PAST SURGICAL HISTORY: N/A MEDICATION ALLERGIES: No Known Drug Allergies (NKDA) ENVIRONMENTAL ALLERGIES: None Known - Substance Allergies None Known - Other Allergies None Known CODE STATUS: Full code WEIGHT/HEIGHT/BMI: WEIGHT 132 lbs HEIGHT 4' 3" BMI 35.7 DIET: - Diet Type Regular - Diet - Solid Texture Regular - Diet - Liquid Texture Regular - Tube Feed N/A REVIEW OF SYSTEMS: - Gen Alert and awake Lying in bed No apparent distress Oriented to: person, time, and place - Vital Signs Temperature: 97.5 F SBP/DBP: 192/85 Pulse: 65 Resp: 18 Vital signs stable, afebrile - CVS RRR VITAL SIGNS Temperature: 97.5 F SBP/DBP: 192/85 Pulse: 65 Resp: 18 Vital signs stable, afebrile CURRENT SPHINCTER CONTROL: Pre-hospital bladder status: continent # of bladder accidents in the last 7 days prior to screenin Pre-hospital bowel status: continent # of bowel accidents in the last 7 days prior to screenin Last Bowel Movement Date: DETAILED CURRENT FUNCTIONAL STATUS: - Bladder accident frequency: Ind - No accidents in the past 7 days - Bowel accident frequency: Ind - No accidents in the past 7 days - Walking score based on distance walked: 3(>=150ft) - Wheelchair score based on distance traveled: 0(N/A) FUNCTIONAL STATUS: - Self-Care A. Eating Ind Ind B. Grooming Ind sup C. Bathing Ind sup D. Dressing - Upper Ind sup E. Dressing - Lower Ind sup F. Toileting Ind sup - Sphincter Control G: Bladder control Ind Ind H: Bowel control Ind Ind - Transfers Control I. Bed/Chair/Wheelchair Ind modA J. Toilet Ind modA K. Tub/Shower Ind ADNO - Locomotion L. Walk/Wheelchair (C) Ind modA L. Walk/Wheelchair (W) Ind modA M. Stairs Ind ADNO - Communication N. Comprehension (B) Ind Ind O. Expression (B) Ind Ind - Social Cognition P. Social Interaction Ind Ind Q. Problem Solving Ind Ind R. Memory Ind Ind - Endurance Fair - Balance Fair - Safety Awareness Fair CURRENT FUNC. DEFICITS: Transfers Control, Balance, Locomotion, Endurance, Safety Awareness, and Self-Care THERAPY NOTES FROM ACUTE CARE: Attached. SPECIAL NEEDS: - Safety Concerns Skin breakdown precautions needed due to skin breakdown risk PRECAUTIONS: - Weight Bearing Precaution WBAT left LE PATIENT NEEDS ACTIVE AND ONGOING THERAPEUTIC INTERVENTION OF MULTIPLE THERAPY DISCIPLINES, INCLUDING: - Occupational Therapy Evaluate and Treat. Visual Perceptual Training. Cognitive Retraining. - Speech Therapy Cognitive Training. Memory Strategies. Speech Intelligibility Training. Expressive Language Skills. R eceptive Language Skills. - Physical Therapy Evaluate and Treat. PATIENT NEEDS CLOSE MEDICAL SUPERVISION BY A REHABILITATION PHYSICIAN FOR: Bowel and Bladder Management Coordination of Treatment Team Medical and Co-Morbidity Management DVT Management Pain Management PATIENT REQUIRES 24X7 REHAB NURSING FOR MEDICAL AND FUNCTIONAL MGT. OF THE FOLLOWING DEFICITS: ADL's Ambulation Bowel and Bladder Management Communication Disease Management Medication Management Patient/Family Education Providing Safe Environment Transfers Pain Management Skin Integrity PATIENT REQUIRES INTENSIVE, COORDINATED INTERDISCIPLINARY APPROACH TO REHAB: Arranging Home Equipment/Services Discharge Planning Family Intervention/Training Code Machine Operator/Case Management PATIENT REHAB POTENTIAL: Expected level of measurable improvement will be of a practical value to patient's functional capacit y or adaptations to impairments Has a viable Discharge Plan Medically appropriate; condition is sufficiently stable to participate in intensive rehab program Patient is able and expected to receive 3 hours of individualized therapy daily on at least 5 of ever y 7 days Patient's prognosis for significant practical improvement within a reasonable period of time appears Good DISCHARGE PLAN: - Estimated Length of Stay (days) 17. - Consensus on plan Discharge plan has been discussed with primary caregiver. Patient/Family is in agreement with the asad n. Primary caregiver is in agreement with the plan. - Patient/Family Goals Return home with assistance. - Planned Living Setting Upon Discharge Home, to live with Family/Relatives. RECOMMENDED CARE LEVEL: IRF RECOMMENDATION DETAILS: Recommended Admission to Comprehensive Rehabilitation Program to Increase Functional [place] SCREENER'S COMPLETENESS CONFIRMATION: - Screening Confirmation The patient data collection on this preadmission screening form is finished - Ms. Zhou has multiple active medical problems which require close medical observation, supervisio n and management as provided by our inpatient rehabilitation unit. Furthermore, she requires acute me dical management following her right frontal stroke with left sided numbness, weakness, dysphagia and aphasia, to minimize her risk of deep vein thrombosis and address her pain while performing aggressi ve daily inpatient physical and occupational therapy. Admission to the acute inpatient rehabilitation unit is necessary and appropriate. PHYSICIANS REVIEW AND ADMISSION DETERMINATION Admit - Based on my review of the Pre-Admission Screening results, in my medical judgment and experie nce, I concur with the findings and recommend admission to [facility], as this patient requires an IRF level of care. SIGNATURE PANEL: Clinical Liaison - [electronically] signed by Michelle Daigle on 12/29/2017 at 15:43 (FOOD PRODUCTION MACHINE OPERATOR) Physician Reviewer - [electronically] signed by Dr. Conrado Hunter M.D. on 12/29/2017 at 15:53 (FOOD PRODUCTION MACHINE OPERATOR )
[2017-12-29] MEDS: ENOXAPARIN 40 MG/0.4 ML SQ SCH (21:00)
[2017-12-29] MEDS: LOSARTAN POTASSIUM 50 MG TABLET PO SCH (22:38)
[2017-12-29] MEDS: ATORVASTATIN 40 MG TAB PO SCH (22:38)
[2017-12-30 06:43] LABS: Absolute Lymphocytes (CBC) 2.2 K/uL (0.7-4.9); Absolute Monocytes 0.6 K/uL (0.1-1.3); Absolute Neutrophil 3.6 K/uL (1.8-8.0); Basophils % 0.4 % (0-1.3); Eosinophils % 3.6 % (0-4.4); Hematocrit 39.1 % (36.0-45.0); MCH 30.6 pg (27.0-35.0); MCV 89.2 fL (80-100); Monocytes % 8.6 % (3.3-12.3); RBC Red Blood Cell Count 4.39 M/uL (3.86-4.86)
[2017-12-30 07:02] LABS: Albumin 3.4 g/dL (3.4-5.0); BUN Blood Urea Nitrogen 7 mg/dL (7-18); Bicarbonate 29 mmol/L (21-32); Glucose Level 106 mg/dL (74-106); Magnesium 2.4 mg/dL (1.8-2.4); Potassium 3.8 mmol/L (3.5-5.1); Prealbumin 29.8 mg/dL (20-40); Sodium Level 141 mmol/L (136-145)
[2017-12-30] MEDS: ENOXAPARIN 40 MG/0.4 ML SQ SCH (07:16)
[2017-12-30] MEDS ORDERED: ASPIRIN EC 81 MG TAB PO SCH (08:00)
[2017-12-30] MEDS ORDERED: AMLODIPINE 5 MG TAB PO SCH (08:00)
[2017-12-30] MEDS: FOLIC ACID 1 MG TABLET PO SCH (09:05)
[2017-12-30] MEDS: ASPIRIN EC 81 MG TAB PO SCH (09:06)
[2017-12-30] MEDS: CLOPIDOGREL 75 MG TABLET PO SCH (09:06)
--- NOTE | 2017-12-30 10:52 | FAST ---
SHIFT START DATE/TIME: 12/30/2017 07:00 (LAY OUT FORMER) SHIFT END DATE/TIME: 12/30/2017 19:00 (LAY OUT FORMER) NAME AMY WOMACK DATE OF : 1935 DATE OF ADMISSION: 12/30/2017 18:22 (LAY OUT FORMER) PHONE: AGE: 82 SSN# [id number] ENCOUNTER PHYSICIAN: Dr. Conrado Hunter M.D. 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 EATING: EATING - STEP 1: Does the patient require the assistance of a person or device, or need extra time when eating? Yes. EATING - STEP 2: Does the patient require the assistance of a helper? Yes. EATING - STEP 3: Does the patient perform half or more of the eating tasks? Yes. EATING - STEP 4: Does the patient need only supervision, cuing, coaxing OR help to apply an orthosis OR help to cut fo od, open containers, pour liquids, or butter bread? Yes. EATING - SCORE: 5-SUP GROOMING: Activity did not occur on this shift GROOMING - SCORE: 0-UNK BATHING: Activity did not occur on this shift BATHING - SCORE: 0-UNK DRESSING - UPPER BODY: Activity did not occur on this shift ARTICLES SCORE Total number of steps: 0 DRESSING - UPPER BODY - SCORE: 0-UNK DRESSING - LOWER BODY: Activity did not occur on this shift ARTICLES SCORE Total number of steps: 0 DRESSING - LOWER BODY - SCORE: 0-UNK TOILETING: TOILETING - STEP 1: Does the patient require the assistance of a person or device, or need extra time with toileting? Yes . TOILETING - STEP 2: Does the patient require the assistance of a helper? Yes. TOILETING - STEP 3: How much assistance does the patient require from the helper? Hands-on assistance from the helper TOILETING - STEP 4: Of the 3 tasks: 1) Adjusting clothing prior to use, 2) Cleansing of perineal area, 3) Adjusting clot elizabeth after use; How many tasks does the patient perform WITHOUT assistance of the helper? Two tasks TOILETING - SCORE: 3-MOD BLADDER MANAGEMENT: BLADDER MANAGEMENT - STEP 1: Does the patient control the bladder completely and intentionally without equipment or devices or med ications, and is always continent? No. BLADDER MANAGEMENT - STEP 2: Does the patient require the assistance of a helper? No, patient requires and independently uses an a ssistive device, such as a urinal, bedpan, bedside commode, catheter, absorbent pad, or collecting de vice BLADDER MANAGEMENT - SCORE: 6-TRISTEN BOWEL MANAGEMENT: BOWEL MANAGEMENT - STEP 1: Does the patient control bowels completely and intentionally without equipment devices or medications AND is always continent? Yes. BOWEL MANAGEMENT - SCORE: 7-IND TRANSFERS: BED, CHAIR, WHEELCHAIR: TRANSFERS: BED, CHAIR, WHEELCHAIR - STEP 1: Does the patient require assitance of a person or device, or need extra time with bed, chair, or whee lchair transfers? Yes. TRANSFERS: BED, CHAIR, WHEELCHAIR - STEP 2: Does the patient require the assistance of a helper? Yes. TRANSFERS: BED, CHAIR, WHEELCHAIR - STEP 3: How much assistance does the patient require from the helper? Steadying/guiding assistance TRANSFERS: BED, CHAIR, WHEELCHAIR - SCORE: 4-MIN TRANSFERS: TOILET: TRANSFERS: TOILET - STEP 1: Does the patient require the assistance of a person or device, or need extra time with toilet transfe rs? Yes. TRANSFERS: TOILET - STEP 2: Does the patient require the assistance of a helper? Yes. TRANSFERS: TOILET - STEP 3: How much assistance does the patient require from the helper? Patient performs half or more of the tr ansferring tasks TRANSFERS: TOILET - STEP 4: Does the patient need only incidental help such as contact guard or steadying during toilet transfer? No. Patient needs more than incidental help TRANSFERS: TOILET - SCORE: 3-MOD TRANSFERS: SHOWER: Activity did not occur on this shift TRANSFERS: SHOWER - SCORE: 0-UNK TRANSFERS: TUB: Activity did not occur on this shift TRANSFERS: TUB - SCORE: 0-UNK LOCOMOTION: WALK: Activity did not occur on this shift LOCOMOTION: WALK - SCORE: 0-UNK LOCOMOTION: WHEELCHAIR: Activity did not occur on this shift LOCOMOTION: WHEELCHAIR - SCORE: 0-UNK COMPREHENSION: COMPREHENSION: TYPE: Both COMPREHENSION - STEP 1: Does the patient require help from a person or device, or need extra time to understand complex and a bstract ideas (such as current events, finances, discharge planning, medical issues, relationships, e tc)? No. COMPREHENSION - STEP 2: Does the patient need extra time, require an assistive device (such as glasses for visual comprehensi on or a hearing aid for auditory comprehension) or does s/he have mild difficulty understanding compl ex and abstract information? Yes. COMPREHENSION - SCORE: 6-TRISTEN EXPRESSION EXPRESSION: TYPE: Both EXPRESSION - STEP 1: Does the patient require help from a person or device, or need extra time expressing complex and abst ract ideas (such as current events, finances, discharge planning, medical issues, relationships, etc) ? No. EXPRESSION - STEP 2: Does the patient need extra time, require an assistive device (such as augmentive communication syste m or a communication board), OR does s/he have mild difficulty expressing complex and abstract ideas (including mild dysarthria or mild word-find problems)? Yes. EXPRESSION - SCORE: 6-TRISTEN SOCIAL INTERACTION: SOCIAL INTERACTION - STEP 1: Does the patient require a helper to interact with others in social and therapeutic situations? No. SOCIAL INTERACTION - STEP 2: Does the patient need extra time in social situations, OR does s/he interact with staff, other patien ts, and family members ONLY in structured environments, OR does s/he require medication for social in teraction? Yes, patient needs extra time SOCIAL INTERACTION - SCORE: 6-TRISTEN PROBLEM SOLVING: PROBLEM SOLVING - STEP 1: Does the patient need help from a person or device, or need extra time to solve complex problems such as managing a checking account or confronting interpersonal problems? No. PROBLEM SOLVING - STEP 2: Does the patient require extra time to make decisions or solve problems, OR does s/he have slight dif ficulty reading, initiating, or self-correcting in unfamiliar situations? Yes, patient needs extra ti me. PROBLEM SOLVING - SCORE: 6-TRISTEN MEMORY: MEMORY - STEP 1: Does the patient need help from a person or device, or need extra time to remember frequently encount ered people, daily routines, and executing requests? No. MEMORY - STEP 2: Does the patient have slight difficulty recognizing frequently encountered people, daily routines, or executing requests without the need for repetition or using self-initiated or environmental cues to remember? Yes. MEMORY - SCORE: 6-TRISTEN SIGNATURE PANEL: The following modified sections: Eating - Score, Grooming - Score, Bathing - Score, Dressing - Upper Body - Score, Dressing - Lower Body - Score, Toileting - Score, Bladder Management - Score, Bowel Man agement - Score, Transfers: Bed, Chair, Wheelchair - Score, Transfers: Toilet - Score, Transfers: Zahra wer - Score, Transfers: Tub - Score, Locomotion: Walk - Score, Locomotion: Wheelchair - Score, Compre hension - Score, Expression - Score, Social Interaction - Score, Problem Solving - Score, Memory - Sc ore were [electronically] signed by David Gonzalez on Sat Dec 30 2017 10:52:04 GMT-0600 (Central Standard Time)
--- NOTE | 2017-12-30 17:19 | FAST ---
ENCOUNTER DATE AND TIME: 12/30/2017 08:00 (NETWORK SUPPORT ADMINISTRATOR) NAME AMY WOMACK DATE OF : 1935 DATE OF ADMISSION: 12/30/2017 18:22 (NETWORK SUPPORT ADMINISTRATOR) PHONE: AGE: 82 SSN# [id number] ENCOUNTER PHYSICIAN: Dr. Conrado Hunter M.D. 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 EATING: EATING - STEP 1: Does the patient require the assistance of a person or device, or need extra time when eating? Yes. EATING - STEP 2: Does the patient require the assistance of a helper? Yes. EATING - STEP 3: Does the patient perform half or more of the eating tasks? Yes. EATING - STEP 4: Does the patient need only supervision, cuing, coaxing OR help to apply an orthosis OR help to cut fo od, open containers, pour liquids, or butter bread? No. EATING - SCORE: 4-MIN GROOMING: Comb/brush hair Wash, rinse, and dry face Wash, rinse, and dry hands GROOMING - STEP 1: Does the patient require the assistance of a person or device, or need extra time when grooming? Yes. GROOMING - STEP 2: Does the patient require the assistance of a helper? Yes. GROOMING - STEP 3: How much assistance does the patient require from the helper? More than incidental help GROOMING - STEP 4: How many grooming tasks does the patient perform WITHOUT the assistance of the helper? Less than half of the grooming tasks GROOMING - SCORE: 2-MAX BATHING: Abdomen Buttocks Chest Left arm Left lower leg and foot Left upper leg Perineal area Right arm Right lower leg and foot Right upper leg BATHING - STEP 1: Does the patient require the assistance of a person or device, or need extra time when bathing? Yes. BATHING - STEP 2: Does the patient require the assistance of a helper? Yes. BATHING - STEP 3: How much assistance does the patient require from the helper? More than just incidental help BATHING - STEP 4: What percent of the body parts did the patient bathe WITHOUT the helper? None. All work was performed by the helper BATHING - SCORE: 1-DEP DRESSING - UPPER BODY: T-shirt/pullover shirt (four steps) ARTICLES SCORE Total number of steps: 4 DRESSING - UPPER BODY - STEP 1: Does the patient require help from a person or device, or need extra time when dressing above the [address]? Yes. DRESSING - UPPER BODY - STEP 2: Does the patient require the assistance of a helper? Yes. DRESSING - UPPER BODY - STEP 3: Does the helper touch the patient while dressing? Yes. DRESSING - UPPER BODY - STEP 4: How many of the total steps does the patient complete on his/her own? 0 DRESSING - UPPER BODY - STEP 5: Does Patient require total assistance for dressing above the waist such as the helper holding clothin g and performing basically all the activities? Yes. DRESSING - UPPER BODY - SCORE: 1-DEP DRESSING - LOWER BODY: Elastic waist pants (three steps) Sock - Left foot (one step) Sock - Right foot (one step) Underwear (three steps) ARTICLES SCORE Total number of steps: 8 DRESSING - LOWER BODY - STEP 1: Does the patient require help from a person or device, or need extra time when dressing below the n[address] st? Yes. DRESSING - LOWER BODY - STEP 2: Does the patient require the assistance of a helper? Yes. DRESSING - LOWER BODY - STEP 3: Does the helper touch the patient while dressing? Yes. DRESSING - LOWER BODY - STEP 4: How many of the total steps does the patient complete on his/her own? 0 DRESSING - LOWER BODY - STEP 5: Does patient require total assistance for dressing below the waist such as the helper holding clothin g and performing basically all the activities? Yes. DRESSING - LOWER BODY - SCORE: 1-DEP TOILETING: Activity did not occur on this shift TOILETING - SCORE: 0-UNK BLADDER MANAGEMENT: Activity did not occur on this shift BLADDER MANAGEMENT - SCORE: 7-IND BOWEL MANAGEMENT: Activity did not occur on this shift BOWEL MANAGEMENT - SCORE: 7-IND TRANSFERS: BED, CHAIR, WHEELCHAIR: Activity did not occur on this shift TRANSFERS: BED, CHAIR, WHEELCHAIR - SCORE: 0-UNK TRANSFERS: TOILET: Activity did not occur on this shift TRANSFERS: TOILET - SCORE: 0-UNK TRANSFERS: SHOWER: More than one helper is required for shower transfer TRANSFERS: SHOWER - SCORE: 1-DEP TRANSFERS: TUB: Activity did not occur on this shift TRANSFERS: TUB - SCORE: 0-UNK LOCOMOTION: WALK: Activity did not occur on this shift LOCOMOTION: WALK - SCORE: 0-UNK LOCOMOTION: WHEELCHAIR: Activity did not occur on this shift LOCOMOTION: WHEELCHAIR - SCORE: 0-UNK LOCOMOTION: STAIRS: Activity did not occur on this shift LOCOMOTION: STAIRS - SCORE: 0-UNK COMPREHENSION: COMPREHENSION: TYPE: Both COMPREHENSION - STEP 1: Does the patient require help from a person or device, or need extra time to understand complex and a bstract ideas (such as current events, finances, discharge planning, medical issues, relationships, e tc)? Yes. COMPREHENSION - STEP 2: Does the patient require help to understand questions or statements about basic needs or ideas (such as hunger, thirst, sleep, safety, daily schedule, room location, or discomfort) half or more of the t clementina? No. COMPREHENSION - STEP 3: How often does the patient need help to understand directions and conversation about basic needs? 25% - 49% of the time COMPREHENSION - SCORE: 3-MOD EXPRESSION EXPRESSION: TYPE: Both EXPRESSION - STEP 1: Does the patient require help from a person or device, or need extra time expressing complex and abst ract ideas (such as current events, finances, discharge planning, medical issues, relationships, etc) ? Yes. EXPRESSION - STEP 2: Does the patient require help to express basic necessities or ideas (such as hunger, thirst, sleep, s afety, daily schedule, room location, or discomfort) half or more of the time? Yes. EXPRESSION - STEP 3: Is the patient basically unable to express or does s/he express inappropriately or inconsistently sunny pite prompting? No. EXPRESSION - SCORE: 2-MAX SOCIAL INTERACTION: SOCIAL INTERACTION - STEP 1: Does the patient require a helper to interact with others in social and therapeutic situations? Yes. SOCIAL INTERACTION - STEP 2: Does the patient interact appropriately half or more of the time? Yes. SOCIAL INTERACTION - STEP 3: How often does the patient need help to interact appropriately? 25-49% of the time SOCIAL INTERACTION - SCORE: 3-MOD SOCIAL INTERACTION - COMMENTS: Does not interact much PROBLEM SOLVING: PROBLEM SOLVING - STEP 1: Does the patient need help from a person or device, or need extra time to solve complex problems such as managing a checking account or confronting interpersonal problems? Yes. PROBLEM SOLVING - STEP 2: Does the patient solve basic routine problems half or more of the time? No. PROBLEM SOLVING - STEP 3: Does the patient need help to solve problems all the time or is s/he unable to solve problems? No. Oh redd can sometimes solve problems PROBLEM SOLVING - SCORE: 2-MAX MEMORY: MEMORY - STEP 1: Does the patient need help from a person or device, or need extra time to remember frequently encount ered people, daily routines, and executing requests? Yes. MEMORY - STEP 2: How often does the patient need help to remember frequently encountered people, daily routines, and e xecuting requests? 25% - 49% of the time MEMORY - SCORE: 3-MOD SIGNATURE PANEL: The following modified sections: Eating - Score, Grooming - Score, Bathing - Score, Dressing - Upper Body - Score, Dressing - Lower Body - Score, Toileting - Score, Transfers: Bed, Chair, Wheelchair - S core, Transfers: Toilet - Score, Transfers: Shower - Score, Transfers: Tub - Score, Comprehension - S core, Expression - Score, Social Interaction - Score, Social Interaction - Comments:, Problem Solving - Score, Memory - Score were [electronically] signed by Anastacia Esquivel OT on Sat Dec 30 2017 17:18: 02 GMT-0600 (Central Standard Time)
--- NOTE | 2017-12-30 17:33 | PN ---
Date of Progress Note: 12/30/2017 History: The patient seen and examined. Chart reviewed and case discussed with RN. The patient was transferred to inpatient rehab yesterday post CVA. The patient is doing well today however blood pr essure is still elevated. Review of Systems: Negative except as above. Medications: List reviewed. Physical Examination: Vital Signs: Temperature 97.6, heart rate 76, blood pressure 182/79, respiration 20, O2 97% on room air. General: Awake, alert, oriented x3, not in any acute distress. Elderly female, obese. CV: S1, S2. Regular rate and rhythm. No murmurs. Respiratory: Moving air well bilaterally. No wheezing. Gastrointestinal: Abdomen is soft, nontender, nondistended. Positive bowel sounds. Extremities: No clubbing, cyanosis, edema. Neuro: The patient has some mild left left-sided weakness and facial asymmetry. Laboratory Data: Sodium 141, potassium 3.8, chloride 104, CO2 29, BUN 7, creatinine 0.5, glucose 106 , calcium 8.7, magnesium 2.4, albumin 3.4, pre-albumin 29.8. WBC 6.6, H and H 13.4 and 39.1, platele ts 309. Assessment And Plan: An 82-year-old female with: 1.Acute cerebrovascular accident with left-sided weakness. Lesion is in the right medial frontal lo be. 2.Essential hypertension, not well controlled. Has been started on amlodipine. We will adjust dose to try to keep systolic less than 160. 3.Dyslipidemia. Continue high-dose statin. 4.Obesity. BMI 35.7. 5.Distal right vertebral artery stenosis. 6.Dysphagia, on mechanically ground diet. Plan: Continue to monitor blood pressure closely. The patient does have recent stroke and out of th e initial 72 hour window. We will therefore keep systolic less than 160. SA/MODL Voice ID: [id number] Report ID: [id number]
[2017-12-30] MEDS: ATORVASTATIN 40 MG TAB PO SCH (19:54)
[2017-12-30] MEDS: LOSARTAN POTASSIUM 50 MG TABLET PO SCH (19:55)
--- NOTE | 2017-12-30 21:37 | R.HP ---
FACILITY: [facility] ENCOUNTER DATE AND TIME: 12/30/2017 21:32 (MILLING MACHINE TENDER) MR#: [id number] NAME AMY WOMACK ADDRESS: [address] [place] [address] CITY: [place]IP [id number] PHONE: DATE OF : 1935 AGE: 82 SSN# [id number] DEXTERITY Right-handed [facility] [employer] PRE-HOSPITAL LIVING SETTING 01 - Home (private home/apt. board/care, assisted living, shelter, transitional living) PRE-HOSPITAL LIVING WITH Family/Relatives ENCOUNTER PHYSICIAN: Dr. Conrado Hunter M.D. REFERRING DOCTOR: joana Jacobsen DATE OF ADMISSION: 12/30/2017 18:22 (MILLING MACHINE TENDER) REFERRING FACILITY [facility] HOME TYPE AND DETAILS: Type of home: single family house # of levels in the residence: 1 # of steps within the residence: 0 # of steps to enter the residence: 2 ADMISSION DIAGNOSIS: RIGHT CVA ONSET DATE: 12/27/2017 PRIMARY DIAGNOSIS-RELATED SURGERIES: N/A SECONDARY/COMORBID DIAGNOSES (TIERED): - N/A HYPERTENSION DYSLIPIDEMIA CVA HISTORY OF PRESENT ILLNESS (HPI): Pt. is a 82 yo Right-handed ,female. On 12/27/2017 Pt. presented to [facility] with sudden onset of left-side weakne ss. On 12/27/2017 she was admitted to [facility] with diagnosis RIGHT CVA. her impairment category is Stroke 01 - Left Body (Right Brain) (01.1). Pre-morbidly, Pt. was independent/mod-I in Transfers Control, Communication, Social Cognition, Self-C are, Locomotion, and Sphincter Control; and she had good Sphincter Control. Currently, she has deficits of Transfers Control, Balance, Locomotion, Endurance, Safety Awareness, a nd Self-Care. Pt. is now referred to [facility] for acute in-patient rehabilitation in order to maximize patient's functional independence in activities of daily living, strength, ROM, and mobi lity. Patient has realistic goal of being discharged at assistance level 6-Rosalind to reside at Home with Fam wenceslao/Relatives. Ms Amy Jacobson is an 82 year old female that lives in a 1 [address] home with 2 steps to enter. She goes to grocery store several times a week. On 12/27/2017, Ms Abelardo Jacobson had a Right CVA and was admitted to [facility] and treated. She is now medically stable but in need of 24-hour nursing, doctor supervision and oversite participate in 3hours of therapy a day/15 hours per week and receive care with an intensive interdisciplinary approach. MEDICATION ALLERGIES: No Known Drug Allergies (NKDA) ENVIRONMENTAL ALLERGIES: None Known - Substance Allergies None Known - Other Allergies None Known PAST MEDICAL HISTORY: DYSLIPIDEMIA HYPERTENSION CVA PAST SURGICAL HISTORY: N/A FAMILY HISTORY: Family history is not contributory. SOCIAL HISTORY: - Home Living Family/Relatives REVIEW OF SYSTEMS: - Gen No Chills Fatigue No Fever - Eyes No Double Vision No itchiness - ENMT Difficulty Swallowing - CVS No Chest Discomfort No Chest Pain Fatigue No Weight Gain - Resp No Cough No Shortness of Breath - GI Continent No Abdominal Pain No Constipation No Diarrhea - Continent No Kidney Pain No Painful Urination No Urinary Urgency - MSK No Joint Pain No Muscle Cramps Stiffness - Skin No Itching No Rash No Suspicious Lesions - Neuro Coordination Difficulty No Difficulty with Concentration Memory Loss No Seizures Weakness - Psych No Anxiety No Depression No HIV Exposure No Persistent Infections No Seasonal Allergies - Endo No Cold/Heat Intolerance No Excessive Hunger No Excessive Thirst No Excessive Urination PHYSICAL EXAM - Gen Alert and awake Lying in bed No apparent distress Oriented to: person, time, and place - Skin No skin breakdown. Normacephalic - Eyes No abnormalities - ENMT No abnormalities - Neck No abnormalities - CVS RRR - Chest Clear - Abd + bowel sounds - GI Non tender Deferred - No abnormalities - Ext No significant edema - MSK 4+/5 weakness in left upper and lower extremity - Neuro 4/5 strength left upper and lower extremities. - Psych No abnormalities VITAL SIGNS Temperature: 97.5 F SBP/DBP: 192/85 Pulse: 65 Resp: 18 NURSING: - Shower allowing shower - Bladder care per protocol - Skin care per protocol PRECAUTIONS: - Weight Bearing Precaution WBAT left LE ACTIVITIES OOB only with supervision FUNCTIONAL STATUS: - Self-Care A. Eating Ind Ind B. Grooming Ind sup C. Bathing Ind sup D. Dressing - Upper Ind sup E. Dressing - Lower Ind sup F. Toileting Ind sup - Sphincter Control G: Bladder control Ind Ind H: Bowel control Ind Ind - Transfers Control I. Bed/Chair/Wheelchair Ind modA J. Toilet Ind modA K. Tub/Shower Ind ADNO - Locomotion L. Walk/Wheelchair (C) Ind modA L. Walk/Wheelchair (W) Ind modA M. Stairs Ind ADNO - Communication N. Comprehension (B) Ind Ind O. Expression (B) Ind Ind - Social Cognition P. Social Interaction Ind Ind Q. Problem Solving Ind Ind R. Memory Ind Ind - Endurance Fair - Balance Fair - Safety Awareness Fair CURRENT FUNC. DEFICITS: Transfers Control, Balance, Locomotion, Endurance, Safety Awareness, and Self-Care ASSESSMENT: Pt. is a 82 yo Right-handed ,female.On 12/27/2017 Pt. presented to [facility] with sudden onset of left-side weakness.On 12/27/2017 she was admitted to [facility] with diagnosis RIGHT CVA.her impairment category is Stroke 01 - Left Body (Right Brain) (01.1).Pre-morbidly, Pt. was independent/mod-I in Transfers Control, Communication, Social Cognition , Self-Care, Locomotion, and Sphincter Control; and she had good Sphincter Control.Currently, she has deficits of Transfers Control, Balance, Locomotion, Endurance, Safety Awareness, and Self-Care.Pt. i s now referred to [facility] for acute in-patient rehabilitation in order to m aximize patient's functional independence in activities of daily living, strength, ROM, and mobility. - Rehab Goal Patient has realistic goal of being discharged at assistance level 6-Rosalind to reside at Home with Fam wenceslao/Relatives. Ms Amy Jacobson is an 82 year old female that lives in a 1 [address] home with 2 steps to enter. She goes to grocery store several times a week. On 12/27/2017, Ms Abelardo Jacobson had a Right CVA and was admitted to [facility] and treated. She is now medically stable but in need of 24-hour nursing, doctor supervision and oversite participate in 3hours of therapy a day/15 hours per week and receive care with an intensive interdisciplinary approach.REHAB PLAN: for Dementia, TBI, Stroke, or others - Physical Therapy Gait dysfunction - to improve, our physical therapists will perform initial evaluation of pt's status upon admission and devise an individualized program for Gait Training, and Wheel Chair mobility Inability to transfer - to improve, our physical therapists will perform initial evaluation of pt's s tatus upon admission and devise an individualized program for Bed mobility Need for home safety evaluation - to improve, our physical therapists will perform initial evaluation of pt's status upon admission and devise an individualized program for Home Evaluation Need in caregiver upon discharge - to improve, our physical therapists will perform initial evaluatio n of pt's status upon admission and devise an individualized program for Caregiver Training New precaution - to improve, our physical therapists will perform initial evaluation of pt's status u smitha admission and devise an individualized program for Patient precaution education Edema - to improve, our physical therapists will perform initial evaluation of pt's status upon admi ssion and devise an individualized program for Elevation Training, and Lymphedema Therapy Poor balance - to improve, our physical therapists will perform initial evaluation of pt's status upo n admission and devise an individualized program for Balance Training Poor endurance - to improve, our physical therapists will perform initial evaluation of pt's status u smitha admission and devise an individualized program for Endurance Training Weakness - to improve, our physical therapists will perform initial evaluation of pt's status upon ad mission and devise an individualized program for Aquatic Therapy, Neuromuscular Reeducation, and Stre ngthening Achieving independence - to improve, our physical therapists will perform initial evaluation of pt's status upon admission and devise an individualized program for Community Reintegration Activities - Occupational Therapy ADL deficits - to improve, our occupation therapists will perform initial evaluation of pt's status u smitha admission and devise an individualized program for Bathing, Bed mobility, Community Reintegration , Cooking, Dressing, Eating, Fine Motor Skills, Grooming, Homemaking, Kitchen Mobility, Laundry, Charla ent Education, Safety Awareness, Splinting - Positioning, Transfers(Toilet, Tub, Shower), and Wheel C hair Management Need for medical care evaluation specialist - to improve, our occupation therapists will perform initial evaluation of pt's s tatus upon admission and devise an individualized program for Caregiver Training Weakness - to improve, our occupation therapists will perform initial evaluation of pt's status upon admission and devise an individualized program for Aquatic Therapy, Balance, Endurance, UE ROM, and U E strengthening MEDICAL PLAN: - Diet Type Start Regular - Diet - Liquid Texture Start Regular - Tube Feed Start N/A - Bladder care per protocol - Weight Bearing Precaution WBAT left LE - Skin care per protocol - Diet - Solid Texture Regular - Shower shower DISCHARGE PLAN: - Estimated Length of Stay (days) 17. - Consensus on plan Discharge plan has been discussed with primary caregiver. Patient/Family is in agreement with the asad n. Primary caregiver is in agreement with the plan. - Patient/Family Goals Return home with assistance. - Planned Living Setting Upon Discharge Home, to live with Family/Relatives. SIGNATURE PANEL: (MILLING MACHINE TENDER)
--- NOTE | 2017-12-30 21:39 | PAPE ---
PATIENT: [facility] MR# [id number] REFERRING DOCTOR joana Jacobsen EVALUATION DATE AND TIME 12/30/2017 21:36 (GLOBAL CLIMATE CHANGE ANALYST) NAME AMY WOMACK DATE OF 1935 AGE 82 PHONE SSN# [id number] Conrado Hunter M.D. ADMISSION DIAGNOSIS: RIGHT CVA ONSET DATE 12/27/2017 SECONDARY/COMORBID DIAGNOSES TIERED: - N/A HYPERTENSION DYSLIPIDEMIA CVA POST-ADMISSION FUNCTIONAL/MEDICAL STATUS: - Bladder Same accident frequency: Ind - No accidents in the past 7 days - Bowel Same accident frequency: Ind - No accidents in the past 7 days - Walking Same score based on distance walked: 3(>=150ft) - Wheelchair Same score based on distance traveled: 0(N/A) STATUS CHANGE EVALUATION: No change in Functional or Medical Status is identified compared with Pre-Admission screening. PATIENT NEEDS CLOSE MEDICAL SUPERVISION BY A REHABILITATION PHYSICIAN FOR: Bowel and Bladder Management Coordination of Treatment Team Medical and Co-Morbidity Management DVT Management Pain Management PATIENT REQUIRES 24X7 REHAB NURSING FOR MEDICAL AND FUNCTIONAL MGT. OF THE FOLLOWING DEFICITS: ADL's Ambulation Bowel and Bladder Management Communication Disease Management Medication Management Patient/Family Education Providing Safe Environment Transfers Pain Management Skin Integrity PATIENT REQUIRES INTENSIVE, COORDINATED INTERDISCIPLINARY APPROACH TO REHAB: Arranging Home Equipment/Services Discharge Planning Family Intervention/Training Art Glass Designer/Case Management LIST OF IDENTIFIED AND POTENTIAL PROBLEMS: Alteration in leisure activities Bladder, Incontinence Blood Pressure, Hypertension/hypotension Issues Bowel, Incontinence Infection, Actual or Potential Mobility Impaired Pain, Alteration in Comfort Self Care Deficit Skin Integrity, Actual or Potential Urinary Tract Infection (UTI), Actual or Potential RISK FOR COMPLICATIONS - Hypertension CVA. Hypotension. [place]. TIA. INTERVENTIONS - Hypertension PATIENT COULD BE AT RISK FOR COMPLICATIONS FROM ADVERSE MEDICAL CONDITIONS DUE TO HIS/HER COMORBIDITI ES AND THE RIGORS OF THE INTENSIVE REHABILLITATION PROGRAM. METHODS OR INTERVENTIONS TO AVOID COMPLIC ATIONS INCLUDE: - Deep Vein Thrombosis (DVT) Prophylaxis therapy for prevention . Sequential Compression Device (SCD). TE D Hose. - Bleeding Stroke patients assessed for lethargy or change in status. - Infection Clinical staff to assess and manage the signs and symptoms of infection including fever, redness, war mth, etc. - Urinary Tract Infection - Aspiration Clinical staff will assess and manage coughing, drooling, congestion. - Falls Patient will be evaluated for Fall Precautions and will be placed on Fall Precautions as indicated pe r protocol. - Skin Breakdown Nursing will assess skin daily using assessment tool and will place on Skin Breakdown Precautions as indicated per protocol. - Pain Clinical staff may employ non-medication methods such as massage, distraction, decrease stimulus, etc . as needed. Clinical staff will assess patient's pain level every shift per protocol to assess and e nsure pain management effectiveness. Medications will be given and the pain level re-assessed. PRELIMINARY PLAN OF CARE: - Physical Therapy Patient needs Physical Therapy for a daily minimum of 1.5 hours at least 5 out of 7 days, to improve: Mobility, Strengthening, Transfers, Stretching, ROM, Endurance, Ability to manage stairs, Gait, and Balance. - Speech Therapy Patient needs Speech Therapy for a daily minimum of 0.5 hours at least 5 out of 7 days, to improve: S wallowing, Cognition, Language Skills, and Compensatory Strategies. - Rehabilitation Nursing Patient requires 24x7 Rehabilitation Nursing for: Pain Issues, Identifying and preventing risk factor s, Monitoring and reporting current medical conditions, Assisting with ambulation and transfer, Zuly ting with all ADL-s, Teaching patients about disease process and medications, Family teaching, Provid ing safe environment, Bowel and Bladder Issues, Skin Integrity, and Medication Management. Patient needs Art Glass Designer and/or Case Management for: Discharge Planning, Arranging Home Equipmen t or Services, and Family Interventions. - Dietary and Nutrition Services Patient needs Dietary and Nutrition Services for: Adequate Nutrition, Nutritional Supplements, and Nu tritional Education. - Occupational Therapy Patient needs Occupational Therapy for a daily minimum of 1.5 hours at least 5 out of 7 days, to impr ove Activities of Daily Living, including: Eating, Grooming, Bathing, Dressing, Toileting, Toilet Tra nsfers, Community Reintegration, Higher functional activities, Adaptive Equipment, Splinting, Househo ld Tasks, and Other activities as determined. POTENTIAL FUNCTIONAL GOALS FOR PATIENT TO ACHIEVE BY DISCHARGE: - Safety Precaution Patient will remain free from falls or injury at time of discharge. - Bed Mobility Patient will perform bed mobility at 4-Geovany level of assistance. - Transfers Patient will complete transfers from bed to chair at 4-Geovany level of assistance. - Mobility Patient will ambulate 150 ft with 4-Geovany level of assistance with RW. PATIENT REHAB POTENTIAL Expected level of measurable improvement will be of a practical value to patient's functional capacit y or adaptations to impairments Has a viable Discharge Plan Medically appropriate; condition is sufficiently stable to participate in intensive rehab program Patient is able and expected to receive 3 hours of individualized therapy daily on at least 5 of ever y 7 days Patient's prognosis for significant practical improvement within a reasonable period of time appears Good DISCHARGE PLAN: - Estimated Length of Stay (days) 17. - Consensus on plan Discharge plan has been discussed with primary caregiver. Patient/Family is in agreement with the asad n. Primary caregiver is in agreement with the plan. - Patient/Family Goals Return home with assistance. - Planned Living Setting Upon Discharge Home, to live with Family/Relatives. CONCLUSION ON REHABILITATION NECESSITY: I have evaluated patient's pre-admission functional status and, comparing it to the patient's post-ad mission functional status now, I conclude that the pre-admission assessment was accurate. Patient's c ondition on admission supports the medical necessity of admission to IRF. It is safe to proceed with patient's therapy program. SIGNATURE PANEL: (GLOBAL CLIMATE CHANGE ANALYST)
[2017-12-31] MEDS: ENOXAPARIN 40 MG/0.4 ML SQ SCH (07:03)
[2017-12-31] MEDS ORDERED: AMLODIPINE 10 MG TAB PO SCH (08:00)
[2017-12-31] MEDS: CLOPIDOGREL 75 MG TABLET PO SCH (08:54)
[2017-12-31] MEDS: FOLIC ACID 1 MG TABLET PO SCH (08:55)
--- NOTE | 2017-12-31 08:55 | FAST ---
SHIFT START DATE/TIME: 12/31/2017 07:00 (STATE TESTED NURSING ASSISTANT) SHIFT END DATE/TIME: 12/31/2017 19:00 (STATE TESTED NURSING ASSISTANT) NAME AMY WOMACK DATE OF : 1935 DATE OF ADMISSION: 12/30/2017 18:22 (STATE TESTED NURSING ASSISTANT) PHONE: AGE: 82 SSN# [id number] ENCOUNTER PHYSICIAN: Dr. Conrado Hunter M.D. 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 EATING: EATING - STEP 1: Does the patient require the assistance of a person or device, or need extra time when eating? Yes. EATING - STEP 2: Does the patient require the assistance of a helper? Yes. EATING - STEP 3: Does the patient perform half or more of the eating tasks? Yes. EATING - STEP 4: Does the patient need only supervision, cuing, coaxing OR help to apply an orthosis OR help to cut fo od, open containers, pour liquids, or butter bread? Yes. EATING - SCORE: 5-SUP GROOMING: Activity did not occur on this shift GROOMING - SCORE: 0-UNK BATHING: Activity did not occur on this shift BATHING - SCORE: 0-UNK DRESSING - UPPER BODY: Activity did not occur on this shift ARTICLES SCORE Total number of steps: 0 DRESSING - UPPER BODY - SCORE: 0-UNK DRESSING - LOWER BODY: Activity did not occur on this shift ARTICLES SCORE Total number of steps: 0 DRESSING - LOWER BODY - SCORE: 0-UNK TOILETING: TOILETING - STEP 1: Does the patient require the assistance of a person or device, or need extra time with toileting? Yes . TOILETING - STEP 2: Does the patient require the assistance of a helper? Yes. TOILETING - STEP 3: How much assistance does the patient require from the helper? Hands-on assistance from the helper TOILETING - STEP 4: Of the 3 tasks: 1) Adjusting clothing prior to use, 2) Cleansing of perineal area, 3) Adjusting clot elizabeth after use; How many tasks does the patient perform WITHOUT assistance of the helper? No tasks; h elper performs all three tasks TOILETING - SCORE: 1-DEP BLADDER MANAGEMENT: [place] removes incontinent device (Depends, pull ups, etc.); cleans the patient after accident / inco ntinent episode; and, applies new incontinent device. BLADDER MANAGEMENT - SCORE: 1-DEP BLADDER MANAGEMENT - FREQUENCY OF ACCIDENTS: BLADDER MANAGEMENT(FA) - STEP 1: How many accidents has the patient had during the current shift? 2 BOWEL MANAGEMENT: Activity did not occur on this shift BOWEL MANAGEMENT - SCORE: 7-IND TRANSFERS: BED, CHAIR, WHEELCHAIR: TRANSFERS: BED, CHAIR, WHEELCHAIR - STEP 1: Does the patient require assitance of a person or device, or need extra time with bed, chair, or whee lchair transfers? Yes. TRANSFERS: BED, CHAIR, WHEELCHAIR - STEP 2: Does the patient require the assistance of a helper? Yes. TRANSFERS: BED, CHAIR, WHEELCHAIR - STEP 3: How much assistance does the patient require from the helper? Lifting of the patient TRANSFERS: BED, CHAIR, WHEELCHAIR - STEP 4: Does the helper lift the patient ONLY up? ONLY down? Up AND Down? Up AND Down. TRANSFERS: BED, CHAIR, WHEELCHAIR - SCORE: 2-MAX TRANSFERS: TOILET: Patient requires more than one helper and/or the use of a mechanical lift is utilized TRANSFERS: TOILET - SCORE: 1-DEP TRANSFERS: TOILET - COMMENTS: More than one person is needed TRANSFERS: SHOWER: Activity did not occur on this shift TRANSFERS: SHOWER - SCORE: 0-UNK TRANSFERS: TUB: Activity did not occur on this shift TRANSFERS: TUB - SCORE: 0-UNK LOCOMOTION: WALK: Activity did not occur on this shift LOCOMOTION: WALK - SCORE: 0-UNK LOCOMOTION: WHEELCHAIR: Activity did not occur on this shift LOCOMOTION: WHEELCHAIR - SCORE: 0-UNK COMPREHENSION: COMPREHENSION: TYPE: Both COMPREHENSION - STEP 1: Does the patient require help from a person or device, or need extra time to understand complex and a bstract ideas (such as current events, finances, discharge planning, medical issues, relationships, e tc)? No. COMPREHENSION - STEP 2: Does the patient need extra time, require an assistive device (such as glasses for visual comprehensi on or a hearing aid for auditory comprehension) or does s/he have mild difficulty understanding compl ex and abstract information? Yes. COMPREHENSION - SCORE: 6-TRISTEN EXPRESSION EXPRESSION: TYPE: Both EXPRESSION - STEP 1: Does the patient require help from a person or device, or need extra time expressing complex and abst ract ideas (such as current events, finances, discharge planning, medical issues, relationships, etc) ? Yes. EXPRESSION - STEP 2: Does the patient require help to express basic necessities or ideas (such as hunger, thirst, sleep, s afety, daily schedule, room location, or discomfort) half or more of the time? No. EXPRESSION - STEP 3: How often does the patient need help to express directions and conversation about basic needs? Less t [place] 10% of the time EXPRESSION - SCORE: 5-SUP SOCIAL INTERACTION: SOCIAL INTERACTION - STEP 1: Does the patient require a helper to interact with others in social and therapeutic situations? Yes. SOCIAL INTERACTION - STEP 2: Does the patient interact appropriately half or more of the time? Yes. SOCIAL INTERACTION - STEP 3: How often does the patient need help to interact appropriately? Less than 10% of the time SOCIAL INTERACTION - SCORE: 5-SUP PROBLEM SOLVING: PROBLEM SOLVING - STEP 1: Does the patient need help from a person or device, or need extra time to solve complex problems such as managing a checking account or confronting interpersonal problems? Yes. PROBLEM SOLVING - STEP 2: Does the patient solve basic routine problems half or more of the time? Yes. PROBLEM SOLVING - STEP 3: How often does the patient need help to solve basic routine problems? Less than 10% of the time PROBLEM SOLVING - SCORE: 5-SUP MEMORY: MEMORY - STEP 1: Does the patient need help from a person or device, or need extra time to remember frequently encount ered people, daily routines, and executing requests? Yes. MEMORY - STEP 2: How often does the patient need help to remember frequently encountered people, daily routines, and e xecuting requests? Less than 10% of the time MEMORY - SCORE: 5-SUP SIGNATURE PANEL: The following modified sections: Eating - Score, Grooming - Score, Bathing - Score, Dressing - Upper Body - Score, Dressing - Lower Body - Score, Toileting - Score, Bladder Management - Score, Bowel Man agement - Score, Transfers: Bed, Chair, Wheelchair - Score, Transfers: Toilet - Score, Transfers: Zahra wer - Score, Transfers: Toilet - Comments:, Transfers: Tub - Score, Locomotion: Walk - Score, Locomot ion: Wheelchair - Score, Comprehension - Score, Expression - Score, Social Interaction - Score, Probl em Solving - Score, Memory - Score were [electronically] signed by David Gonzalez on MonDec 31 2017 08:5 4:53 GMT-0600 (Central Standard Time)
[2017-12-31] MEDS: ASPIRIN EC 81 MG TAB PO SCH (08:58)
--- NOTE | 2017-12-31 12:54 | P.PN ---
Subjective Date of Service: 12/31/17 Chief Complaint: CVA Subjective: No new changes, Working w/ PT Review of Systems 10-point ROS is otherwise unremarkable Physical Examination - Vital Signs Temperature: 97.3 F Blood Pressure: 128/58 Pulse: 83 Respirations: 16 Pulse Ox (%): 95 - Physical Exam General: Alert, In no apparent distress, Oriented x3, Obese HEENT: Atraumatic, PERRLA, EOMI Neck: Supple, JVD not distended Respiratory: Clear to auscultation bilaterally, Normal air movement Cardiovascular: No edema, Normal pulses, Regular rate/rhythm, Normal S1 S2 Gastrointestinal: Normal bowel sounds, Non-distended, No tenderness Musculoskeletal: No tenderness Integumentary: No rashes Neurological: Normal speech, Normal tone, Normal affect, Other (facial droop left), Abnormal strength Lymphatics: No axilla or inguinal lymphadenopathy - Studies Medications List Reviewed: Yes Assessment And Plan - Current Problems (Diagnosis) (1) CVA (cerebral vascular accident) Onset Date: 12/27/17 Current Visit: No Status: Acute Qualifiers: CVA mechanism: stenosis Precerebral and cerebral artery: vertebral artery Laterality of affected vessel: right Qualified Code(s): I63.211 - Cerebral infarction due to unspecified occlusion or stenosis of right vertebral artery (2) Dyslipidemia Onset Date: 12/27/17 Current Visit: No Status: Acute (3) Hypertension Onset Date: 12/27/17 Current Visit: No Status: Acute Qualifiers: Hypertension type: essential hypertension (4) Obesity Current Visit: Yes Status: Acute Qualifiers: Obesity type: due to excess calories Obesity classification: adult class 1 (BMI 30 - 34.9) Serious obesity comorbidity presence: without serious comorbidity Body mass index: BMI 34.0-34.9 Qualified Code(s): E66.09 - Other obesity due to excess calories; Z68.34 - Body mass index (BMI) 34.0-34.9, adult - Plan BP now well controlled w adjustment of meds Cont rehab . - Code Status/Comfort Care Code Status Assessed: Yes
[2017-12-31] MEDS: LOSARTAN POTASSIUM 50 MG TABLET PO SCH (20:59)
[2017-12-31] MEDS: ATORVASTATIN 40 MG TAB PO SCH (20:59)
--- NOTE | 2018-01-01 01:22 | FAST ---
SHIFT START DATE/TIME: 12/31/2017 19:00 (SUPERVISOR SKI PRODUCTION) SHIFT END DATE/TIME: 01/01/2018 07:00 (SUPERVISOR SKI PRODUCTION) NAME AMY WOMACK DATE OF : 1935 DATE OF ADMISSION: 12/30/2017 18:22 (SUPERVISOR SKI PRODUCTION) PHONE: AGE: 82 SSN# [id number] ENCOUNTER PHYSICIAN: Dr. Conrado Hunter M.D. 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 EATING: Activity did not occur on this shift EATING - SCORE: 0-UNK GROOMING: Wash, rinse, and dry hands GROOMING - STEP 1: Does the patient require the assistance of a person or device, or need extra time when grooming? Yes. GROOMING - STEP 2: Does the patient require the assistance of a helper? Yes. GROOMING - STEP 3: How much assistance does the patient require from the helper? Only prior equipment preparation/set up from the helper GROOMING - SCORE: 5-SUP BATHING: Activity did not occur on this shift BATHING - SCORE: 0-UNK DRESSING - UPPER BODY: Patient is not dressing in public clothing ARTICLES SCORE Total number of steps: 0 DRESSING - UPPER BODY - SCORE: 0-UNK DRESSING - LOWER BODY: Patient is not dressing in public clothing ARTICLES SCORE Total number of steps: 0 DRESSING - LOWER BODY - SCORE: 0-UNK TOILETING: TOILETING - STEP 1: Does the patient require the assistance of a person or device, or need extra time with toileting? Yes . TOILETING - STEP 2: Does the patient require the assistance of a helper? Yes. TOILETING - STEP 3: How much assistance does the patient require from the helper? Hands-on assistance from the helper TOILETING - STEP 4: Of the 3 tasks: 1) Adjusting clothing prior to use, 2) Cleansing of perineal area, 3) Adjusting clot elizabeth after use; How many tasks does the patient perform WITHOUT assistance of the helper? Two tasks TOILETING - SCORE: 3-MOD BLADDER MANAGEMENT: BLADDER MANAGEMENT - STEP 1: Does the patient control the bladder completely and intentionally without equipment or devices or med ications, and is always continent? No. BLADDER MANAGEMENT - STEP 2: Does the patient require the assistance of a helper? Yes. BLADDER MANAGEMENT - STEP 3: How much assistance does the patient require from the helper? Only set-up of equipment - such as plac ing it within reach of the patient or emptying a device - to maintain either satisfactory voiding pat tern or managing an external device, such as an absorbent pad, ileal device, or catheter BLADDER MANAGEMENT - SCORE: 5-SUP BOWEL MANAGEMENT: Activity did not occur on this shift BOWEL MANAGEMENT - SCORE: 7-IND TRANSFERS: BED, CHAIR, WHEELCHAIR: TRANSFERS: BED, CHAIR, WHEELCHAIR - STEP 1: Does the patient require assitance of a person or device, or need extra time with bed, chair, or whee lchair transfers? Yes. TRANSFERS: BED, CHAIR, WHEELCHAIR - STEP 2: Does the patient require the assistance of a helper? Yes. TRANSFERS: BED, CHAIR, WHEELCHAIR - STEP 3: How much assistance does the patient require from the helper? Lifting of the legs TRANSFERS: BED, CHAIR, WHEELCHAIR - STEP 4: How many legs does the patient require the helper to lift? both legs TRANSFERS: BED, CHAIR, WHEELCHAIR - SCORE: 3-MOD TRANSFERS: TOILET: TRANSFERS: TOILET - STEP 1: Does the patient require the assistance of a person or device, or need extra time with toilet transfe rs? Yes. TRANSFERS: TOILET - STEP 2: Does the patient require the assistance of a helper? Yes. TRANSFERS: TOILET - STEP 3: How much assistance does the patient require from the helper? Patient performs half or more of the tr ansferring tasks TRANSFERS: TOILET - STEP 4: Does the patient need only incidental help such as contact guard or steadying during toilet transfer? Yes. TRANSFERS: TOILET - SCORE: 4-MIN TRANSFERS: SHOWER: Activity did not occur on this shift TRANSFERS: SHOWER - SCORE: 0-UNK TRANSFERS: TUB: Activity did not occur on this shift TRANSFERS: TUB - SCORE: 0-UNK LOCOMOTION: WALK: Activity did not occur on this shift LOCOMOTION: WALK - SCORE: 0-UNK LOCOMOTION: WHEELCHAIR: Activity did not occur on this shift LOCOMOTION: WHEELCHAIR - SCORE: 0-UNK COMPREHENSION: COMPREHENSION: TYPE: Both COMPREHENSION - STEP 1: Does the patient require help from a person or device, or need extra time to understand complex and a bstract ideas (such as current events, finances, discharge planning, medical issues, relationships, e tc)? Yes. COMPREHENSION - STEP 2: Does the patient require help to understand questions or statements about basic needs or ideas (such as hunger, thirst, sleep, safety, daily schedule, room location, or discomfort) half or more of the t clementina? No. COMPREHENSION - STEP 3: How often does the patient need help to understand directions and conversation about basic needs? 10% - 24% of the time COMPREHENSION - SCORE: 4-MIN EXPRESSION EXPRESSION: TYPE: Both Patient requires the use of an tobacco stripper hand EXPRESSION - STEP 1: Does the patient require help from a person or device, or need extra time expressing complex and abst ract ideas (such as current events, finances, discharge planning, medical issues, relationships, etc) ? Yes. EXPRESSION - STEP 2: Does the patient require help to express basic necessities or ideas (such as hunger, thirst, sleep, s afety, daily schedule, room location, or discomfort) half or more of the time? No. EXPRESSION - STEP 3: How often does the patient need help to express directions and conversation about basic needs? 10-24% of the time EXPRESSION - SCORE: 4-MIN SOCIAL INTERACTION: SOCIAL INTERACTION - STEP 1: Does the patient require a helper to interact with others in social and therapeutic situations? No. SOCIAL INTERACTION - STEP 2: Does the patient need extra time in social situations, OR does s/he interact with staff, other patien ts, and family members ONLY in structured environments, OR does s/he require medication for social in teraction? Yes, patient needs extra time SOCIAL INTERACTION - SCORE: 6-TRISTEN PROBLEM SOLVING: PROBLEM SOLVING - STEP 1: Does the patient need help from a person or device, or need extra time to solve complex problems such as managing a checking account or confronting interpersonal problems? Yes. PROBLEM SOLVING - STEP 2: Does the patient solve basic routine problems half or more of the time? Yes. PROBLEM SOLVING - STEP 3: How often does the patient need help to solve basic routine problems? 10%-24% of the time PROBLEM SOLVING - SCORE: 4-MIN MEMORY: MEMORY - STEP 1: Does the patient need help from a person or device, or need extra time to remember frequently encount ered people, daily routines, and executing requests? No. MEMORY - STEP 2: Does the patient have slight difficulty recognizing frequently encountered people, daily routines, or executing requests without the need for repetition or using self-initiated or environmental cues to remember? Yes. MEMORY - SCORE: 6-TRISTEN SIGNATURE PANEL: The following modified sections: Eating - Score, Grooming - Score, Dressing - Upper Body - Score, [place] ssing - Lower Body - Score, Toileting - Score, Bladder Management - Score, Bowel Management - Score, Transfers: Bed, Chair, Wheelchair - Score, Transfers: Toilet - Score, Transfers: Shower - Score, [place] sfers: Tub - Score, Locomotion: Walk - Score, Locomotion: Wheelchair - Score, Comprehension - Score, Expression - Score, Social Interaction - Score, Problem Solving - Score, Memory - Score were [electro nically] signed by Noreen Jiang CNA on MonJan 01 2018 01:21:28 GMT-0600 (Central Standard Time)
[2018-01-01] MEDS: ENOXAPARIN 40 MG/0.4 ML SQ SCH (07:58)
[2018-01-01] MEDS: CLOPIDOGREL 75 MG TABLET PO SCH (07:58)
[2018-01-01] MEDS: FOLIC ACID 1 MG TABLET PO SCH (07:59)
[2018-01-01] MEDS: ASPIRIN EC 81 MG TAB PO SCH (07:59)
[2018-01-01] MEDS ORDERED: AMLODIPINE 5 MG TAB PO SCH (08:00)
--- NOTE | 2018-01-01 12:55 | FAST ---
ENCOUNTER DATE AND TIME: 01/01/2018 08:00 (MEDICAL PRACTICE MANAGER) NAME AMY WOMACK DATE OF : 1935 DATE OF ADMISSION: 12/30/2017 18:22 (MEDICAL PRACTICE MANAGER) PHONE: AGE: 82 SSN# [id number] ENCOUNTER PHYSICIAN: Dr. Conrado Hunter M.D. 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 EATING: Activity did not occur on this shift EATING - SCORE: 0-UNK GROOMING: GROOMING - STEP 1: Does the patient require the assistance of a person or device, or need extra time when grooming? Yes. GROOMING - STEP 2: Does the patient require the assistance of a helper? Yes. GROOMING - STEP 3: How much assistance does the patient require from the helper? Incidental touching assistance from the helper while grooming GROOMING - SCORE: 4-MIN BATHING: Abdomen Buttocks Chest Left arm Left lower leg and foot Left upper leg Perineal area Right arm Right lower leg and foot Right upper leg BATHING - STEP 1: Does the patient require the assistance of a person or device, or need extra time when bathing? Yes. BATHING - STEP 2: Does the patient require the assistance of a helper? Yes. BATHING - STEP 3: How much assistance does the patient require from the helper? Only incidental help such as placement of a wash cloth in his/her hand a few times as s/he bathes OR help to bathe just one or two areas of the body BATHING - SCORE: 4-MIN DRESSING - UPPER BODY: Sweater (four steps) T-shirt/pullover shirt (four steps) ARTICLES SCORE Total number of steps: 8 DRESSING - UPPER BODY - STEP 1: Does the patient require help from a person or device, or need extra time when dressing above the [address]? Yes. DRESSING - UPPER BODY - STEP 2: Does the patient require the assistance of a helper? Yes. DRESSING - UPPER BODY - STEP 3: Does the helper touch the patient while dressing? No. DRESSING - UPPER BODY - SCORE: 5-SUP DRESSING - LOWER BODY: Elastic waist pants (three steps) Slip-on shoe - Left foot (one step) Slip-on shoe - Right foot (one step) Sock - Left foot (one step) Sock - Right foot (one step) Tied or buckled shoe - Left foot (two steps) Tied or buckled shoe - Right foot (two steps) Underwear (three steps) ARTICLES SCORE Total number of steps: 14 DRESSING - LOWER BODY - STEP 1: Does the patient require help from a person or device, or need extra time when dressing below the [address]? Yes. DRESSING - LOWER BODY - STEP 2: Does the patient require the assistance of a helper? Yes. DRESSING - LOWER BODY - STEP 3: Does the helper touch the patient while dressing? Yes. DRESSING - LOWER BODY - STEP 4: How many of the total steps does the patient complete on his/her own? 10 DRESSING - LOWER BODY - SCORE: 3-MOD TOILETING: Activity did not occur on this shift TOILETING - SCORE: 0-UNK BLADDER MANAGEMENT: Activity did not occur on this shift BLADDER MANAGEMENT - SCORE: 7-IND BOWEL MANAGEMENT: Activity did not occur on this shift BOWEL MANAGEMENT - SCORE: 7-IND TRANSFERS: BED, CHAIR, WHEELCHAIR: Activity did not occur on this shift TRANSFERS: BED, CHAIR, WHEELCHAIR - SCORE: 0-UNK TRANSFERS: TOILET: Activity did not occur on this shift TRANSFERS: TOILET - SCORE: 0-UNK TRANSFERS: SHOWER: TRANSFERS: SHOWER - STEP 1: Does the patient require the assistance of a person or device, or need extra time with shower transfe rs? Yes. TRANSFERS: SHOWER - STEP 2: Does the patient require the assistance of a helper? Yes. TRANSFERS: SHOWER - STEP 3: How much assistance does the patient require from the helper? Only incidental help such as contact gu arding or steadying during shower transfers, or help to lift one leg into the shower TRANSFERS: SHOWER - SCORE: 4-MIN TRANSFERS: TUB: Activity did not occur on this shift TRANSFERS: TUB - SCORE: 0-UNK LOCOMOTION: WALK: Activity did not occur on this shift LOCOMOTION: WALK - SCORE: 0-UNK LOCOMOTION: WHEELCHAIR: Activity did not occur on this shift LOCOMOTION: WHEELCHAIR - SCORE: 0-UNK LOCOMOTION: STAIRS: Activity did not occur on this shift LOCOMOTION: STAIRS - SCORE: 0-UNK COMPREHENSION: COMPREHENSION: TYPE: Both COMPREHENSION - STEP 1: Does the patient require help from a person or device, or need extra time to understand complex and a bstract ideas (such as current events, finances, discharge planning, medical issues, relationships, e tc)? No. COMPREHENSION - STEP 2: Does the patient need extra time, require an assistive device (such as glasses for visual comprehensi on or a hearing aid for auditory comprehension) or does s/he have mild difficulty understanding compl ex and abstract information? Yes. COMPREHENSION - SCORE: 6-TRISTEN EXPRESSION EXPRESSION: TYPE: Both EXPRESSION - STEP 1: Does the patient require help from a person or device, or need extra time expressing complex and abst ract ideas (such as current events, finances, discharge planning, medical issues, relationships, etc) ? No. EXPRESSION - STEP 2: Does the patient need extra time, require an assistive device (such as augmentive communication syste m or a communication board), OR does s/he have mild difficulty expressing complex and abstract ideas (including mild dysarthria or mild word-find problems)? Yes. EXPRESSION - SCORE: 6-TRISTEN SOCIAL INTERACTION: SOCIAL INTERACTION - STEP 1: Does the patient require a helper to interact with others in social and therapeutic situations? No. SOCIAL INTERACTION - STEP 2: Does the patient need extra time in social situations, OR does s/he interact with staff, other patien ts, and family members ONLY in structured environments, OR does s/he require medication for social in teraction? Yes, patient needs extra time SOCIAL INTERACTION - SCORE: 6-TRISTEN PROBLEM SOLVING: PROBLEM SOLVING - STEP 1: Does the patient need help from a person or device, or need extra time to solve complex problems such as managing a checking account or confronting interpersonal problems? Yes. PROBLEM SOLVING - STEP 2: Does the patient solve basic routine problems half or more of the time? Yes. PROBLEM SOLVING - STEP 3: How often does the patient need help to solve basic routine problems? 10%-24% of the time PROBLEM SOLVING - SCORE: 4-MIN MEMORY: MEMORY - STEP 1: Does the patient need help from a person or device, or need extra time to remember frequently encount ered people, daily routines, and executing requests? Yes. MEMORY - STEP 2: How often does the patient need help to remember frequently encountered people, daily routines, and e xecuting requests? 10% - 24% of the time MEMORY - SCORE: 4-MIN SIGNATURE PANEL: The following modified sections: Eating - Score, Grooming - Score, Bathing - Score, Dressing - Upper Body - Score, Toileting - Score, Dressing - Lower Body - Score, Transfers: Bed, Chair, Wheelchair - S core, Transfers: Toilet - Score, Transfers: Tub - Score, Transfers: Shower - Score, Comprehension - S core, Expression - Score, Social Interaction - Score, Problem Solving - Score, Memory - Score were [e lectronically] signed by Lorna Guardado OT on MonJan 01 2018 12:55:25 GMT-0600 (Central Standard T clementina)
--- NOTE | 2018-01-01 15:33 | FAST ---
ENCOUNTER DATE AND TIME: 01/01/2018 08:00 (SHORT HAUL DRIVER) NAME AMY WOMACK DATE OF : 1935 DATE OF ADMISSION: 12/30/2017 18:22 (SHORT HAUL DRIVER) PHONE: AGE: 82 SSN# [id number] ENCOUNTER PHYSICIAN: Dr. Conrado Hunter M.D. 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 EATING: Activity did not occur on this shift EATING - SCORE: 0-UNK GROOMING: Activity did not occur on this shift GROOMING - SCORE: 0-UNK BATHING: Activity did not occur on this shift BATHING - SCORE: 0-UNK DRESSING - UPPER BODY: Activity did not occur on this shift Patient is not dressing in public clothing ARTICLES SCORE Total number of steps: 0 DRESSING - UPPER BODY - SCORE: 0-UNK DRESSING - LOWER BODY: Activity did not occur on this shift Patient is not dressing in public clothing ARTICLES SCORE Total number of steps: 0 DRESSING - LOWER BODY - SCORE: 0-UNK TOILETING: Activity did not occur on this shift TOILETING - SCORE: 0-UNK BLADDER MANAGEMENT: Activity did not occur on this shift BLADDER MANAGEMENT - SCORE: 7-IND BOWEL MANAGEMENT: Activity did not occur on this shift BOWEL MANAGEMENT - SCORE: 7-IND TRANSFERS: BED, CHAIR, WHEELCHAIR: TRANSFERS: BED, CHAIR, WHEELCHAIR - STEP 1: Does the patient require assitance of a person or device, or need extra time with bed, chair, or whee lchair transfers? Yes. TRANSFERS: BED, CHAIR, WHEELCHAIR - STEP 2: Does the patient require the assistance of a helper? Yes. TRANSFERS: BED, CHAIR, WHEELCHAIR - STEP 3: How much assistance does the patient require from the helper? Steadying/guiding assistance TRANSFERS: BED, CHAIR, WHEELCHAIR - SCORE: 4-MIN TRANSFERS: TOILET: Activity did not occur on this shift TRANSFERS: TOILET - SCORE: 0-UNK TRANSFERS: SHOWER: Activity did not occur on this shift TRANSFERS: SHOWER - SCORE: 0-UNK TRANSFERS: TUB: Activity did not occur on this shift TRANSFERS: TUB - SCORE: 0-UNK LOCOMOTION: WALK: LOCOMOTION: WALK - STEP 1: Does the patient need help from a person or device, or need extra time to walk 150 feet? Yes. LOCOMOTION: WALK - STEP 2: How much assistance does the patient require to walk a minimum of 150 feet? Only incidental help such as contact guarding or steadying LOCOMOTION: WALK - SCORE: 4-MIN LOCOMOTION: WHEELCHAIR: Activity did not occur on this shift LOCOMOTION: WHEELCHAIR - SCORE: 0-UNK LOCOMOTION: STAIRS: Activity did not occur on this shift LOCOMOTION: STAIRS - SCORE: 0-UNK COMPREHENSION: COMPREHENSION - SCORE: 0-UNK EXPRESSION EXPRESSION - SCORE: 0-UNK SOCIAL INTERACTION: SOCIAL INTERACTION - SCORE: 0-UNK PROBLEM SOLVING: PROBLEM SOLVING - SCORE: 0-UNK MEMORY: MEMORY - SCORE: 0-UNK SIGNATURE PANEL: The following modified sections: Transfers: Bed, Chair, Wheelchair - Score, Transfers: Toilet - Score , Locomotion: Walk - Score, Locomotion: Wheelchair - Score, Locomotion: Stairs - Score were [electron golden] signed by Arturo Yeboah PTA on MonJan 01 2018 15:32:07 GMT-0600 (Central Standard Time)
--- NOTE | 2018-01-01 19:04 | R.PN ---
ENCOUNTER DATE AND TIME: 01/01/2018 18:54 (PICTURE BOOKER) NAME AMY WOMACK DATE OF : 1935 DATE OF ADMISSION: 12/30/2017 18:22 (PICTURE BOOKER) RIGHT CVACHIEF COMPLAINT: Right hemispheric stroke with left sided weakness and dysarthria. SUBJECTIVE: Pt denied any depression. Pt denied any Shortness of Breath. Ambulated 250' with contact guard assistance using a rolling walker and 750' without an assistive dev ice. VITAL SIGNS Temperature: 97.5 F SBP/DBP: 187/75 Pulse: 73 Resp: 16 Very elevated blood pressures. Increased Amlodipine to 10 mg daily. MEDICATION ALLERGIES: No Known Drug Allergies (NKDA) ENVIRONMENTAL ALLERGIES: None Known - Substance Allergies None Known - Other Allergies None Known NURSING: - Shower allowing shower - Bladder care per protocol - Skin care per protocol PRECAUTIONS: - Weight Bearing Precaution WBAT left LE ACTIVITIES OOB only with supervision THERAPIES: - Occupational Therapy Evaluate and Treat. Visual Perceptual Training. Cognitive Retraining. - Speech Therapy Cognitive Training. Memory Strategies. Speech Intelligibility Training. Expressive Language Skills. R eceptive Language Skills. - Physical Therapy Evaluate and Treat. PHYSICAL EXAM - Gen Alert and awake Lying in bed No apparent distress Oriented to: person, time, and place - Skin No skin breakdown. Normacephalic - Eyes No abnormalities - ENMT No abnormalities - Neck No abnormalities - CVS RRR - Chest Clear - Abd + bowel sounds - GI Non tender Deferred - No abnormalities - Ext No significant edema - MSK 4+/5 weakness in left upper and lower extremity - Neuro 4/5 strength left upper and lower extremities. - Psych No abnormalities ASSESSMENT: Pt. is a 82 yo Right-handed ,female.On 12/27/2017 Pt. presented to [facility] with sudden onset of left-side weakness.On 12/27/2017 she was admitted to [facility] with diagnosis RIGHT CVA.her impairment category is Stroke 01 - Left Body (Right Brain) (01.1).Pre-morbidly, Pt. was independent/mod-I in Transfers Control, Communication, Social Cognition , Self-Care, Locomotion, and Sphincter Control; and she had good Sphincter Control.Currently, she has deficits of Transfers Control, Balance, Locomotion, Endurance, Safety Awareness, and Self-Care.Pt. i s now referred to [facility] for acute in-patient rehabilitation in order to m aximize patient's functional independence in activities of daily living, strength, ROM, and mobility. - Rehab Goal Patient has realistic goal of being discharged at assistance level 6-Rosalind to reside at Home with Fam wenceslao/Relatives. MDM/PLAN: - Physical Therapy Gait dysfunction - to improve, our physical therapists will perform initial evaluation of pt's statu s upon admission and devise an individualized program for Gait Training, and Wheel Chair mobility Inability to transfer - to improve, our physical therapists will perform initial evaluation of pt's status upon admission and devise an individualized program for Bed mobility Need for home safety evaluation - to improve, our physical therapists will perform initial evaluatio n of pt's status upon admission and devise an individualized program for Home Evaluation Need in caregiver upon discharge - to improve, our physical therapists will perform initial evaluati on of pt's status upon admission and devise an individualized program for Caregiver Training Edema - to improve, our physical therapists will perform initial evaluation of pt's status upon admis marychuy and devise an individualized program for Elevation Training, and Lymphedema Therapy New precaution - to improve, our physical therapists will perform initial evaluation of pt's status upon admission and devise an individualized program for Patient precaution education Poor balance - to improve, our physical therapists will perform initial evaluation of pt's status up on admission and devise an individualized program for Balance Training Poor endurance - to improve, our physical therapists will perform initial evaluation of pt's status upon admission and devise an individualized program for Endurance Training Weakness - to improve, our physical therapists will perform initial evaluation of pt's status upon a dmission and devise an individualized program for Aquatic Therapy, Neuromuscular Reeducation, and Str engthening Achieving independence - to improve, our physical therapists will perform initial evaluation of pt's status upon admission and devise an individualized program for Community Reintegration Activities - Occupational Therapy ADL deficits - to improve, our occupation therapists will perform initial evaluation of pt's status upon admission and devise an individualized program for Bathing, Bed mobility, Community Reintegratio n, Cooking, Dressing, Eating, Fine Motor Skills, Grooming, Homemaking, Kitchen Mobility, Laundry, Pat ient Education, Safety Awareness, Splinting - Positioning, Transfers(Toilet, Tub, Shower), and Wheel Chair Management Need for care associate - to improve, our occupation therapists will perform initial evaluation of pt's status upon admission and devise an individualized program for Caregiver Training Weakness - to improve, our occupation therapists will perform initial evaluation of pt's status upon admission and devise an individualized program for Aquatic Therapy, Balance, Endurance, UE ROM, and UE strengthening - Diet Type Continue Regular - Diet - Liquid Texture Continue Regular - Tube Feed Continue N/A - Bladder care per protocol - Weight Bearing Precaution WBAT left LE - Skin care per protocol - Diet - Solid Texture Continue Regular - Shower allowing shower for Dementia, TBI, Stroke, or others FUNCTIONAL STATUS: UPDATED AT WEEKLY TEAM CONFERENCE - Bladder Same accident frequency: 7-Ind - No accidents in the past 7 days - Bowel Same accident frequency: 7-Ind - No accidents in the past 7 days - Walking Same score based on distance walked: 3(>=150ft) - Wheelchair Same score based on distance traveled: 0(N/A) FUNCTIONAL STATUS: - Self-Care A. Eating Ind B. Grooming sup C. Bathing sup D. Dressing - Upper sup E. Dressing - Lower sup F. Toileting sup - Sphincter Control G: Bladder control Ind H: Bowel control Ind - Transfers Control I. Bed/Chair/Wheelchair modA J. Toilet modA K. Tub/Shower ADNO - Locomotion L. Walk/Wheelchair (C) modA L. Walk/Wheelchair (W) modA M. Stairs ADNO - Communication N. Comprehension (B) Ind O. Expression (B) Ind - Social Cognition P. Social Interaction Ind Q. Problem Solving Ind R. Memory Ind - Endurance Fair - Balance Fair - Safety Awareness Fair CURRENT FUNC. DEFICITS: Transfers Control, Balance, Locomotion, Endurance, Safety Awareness, and Self-Care SIGNATURE PANEL: ([facility])
[2018-01-01] MEDS: ATORVASTATIN 40 MG TAB PO SCH (21:38)
[2018-01-01] MEDS: LOSARTAN POTASSIUM 50 MG TABLET PO SCH (21:39)
--- NOTE | 2018-01-02 01:39 | FAST ---
SHIFT START DATE/TIME: 01/01/2018 19:00 (MASTER CONTROL SUPERVISOR) SHIFT END DATE/TIME: 01/02/2018 07:00 (MASTER CONTROL SUPERVISOR) NAME AMY WOMACK DATE OF : 1935 DATE OF ADMISSION: 12/30/2017 18:22 (MASTER CONTROL SUPERVISOR) PHONE: AGE: 82 SSN# [id number] ENCOUNTER PHYSICIAN: Dr. Conrado Hunter M.D. 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 EATING: Activity did not occur on this shift EATING - SCORE: 0-UNK GROOMING: Activity did not occur on this shift GROOMING - SCORE: 0-UNK BATHING: Activity did not occur on this shift BATHING - SCORE: 0-UNK DRESSING - UPPER BODY: Patient is not dressing in public clothing ARTICLES SCORE Total number of steps: 0 DRESSING - UPPER BODY - SCORE: 0-UNK DRESSING - LOWER BODY: Patient is not dressing in public clothing ARTICLES SCORE Total number of steps: 0 DRESSING - LOWER BODY - SCORE: 0-UNK TOILETING: TOILETING - STEP 1: Does the patient require the assistance of a person or device, or need extra time with toileting? Yes . TOILETING - STEP 2: Does the patient require the assistance of a helper? Yes. TOILETING - STEP 3: How much assistance does the patient require from the helper? Hands-on assistance from the helper TOILETING - STEP 4: Of the 3 tasks: 1) Adjusting clothing prior to use, 2) Cleansing of perineal area, 3) Adjusting clot elizabeth after use; How many tasks does the patient perform WITHOUT assistance of the helper? No tasks; h elper performs all three tasks TOILETING - SCORE: 1-DEP BLADDER MANAGEMENT: [place] removes incontinent device (Depends, pull ups, etc.); cleans the patient after accident / inco ntinent episode; and, applies new incontinent device. BLADDER MANAGEMENT - SCORE: 1-DEP BOWEL MANAGEMENT: Activity did not occur on this shift BOWEL MANAGEMENT - SCORE: 7-IND TRANSFERS: BED, CHAIR, WHEELCHAIR: Activity did not occur on this shift TRANSFERS: BED, CHAIR, WHEELCHAIR - SCORE: 0-UNK TRANSFERS: TOILET: Activity did not occur on this shift TRANSFERS: TOILET - SCORE: 0-UNK TRANSFERS: SHOWER: Activity did not occur on this shift TRANSFERS: SHOWER - SCORE: 0-UNK TRANSFERS: TUB: Activity did not occur on this shift TRANSFERS: TUB - SCORE: 0-UNK LOCOMOTION: WALK: Activity did not occur on this shift LOCOMOTION: WALK - SCORE: 0-UNK LOCOMOTION: WHEELCHAIR: Activity did not occur on this shift LOCOMOTION: WHEELCHAIR - SCORE: 0-UNK COMPREHENSION: COMPREHENSION: TYPE: Both COMPREHENSION - STEP 1: Does the patient require help from a person or device, or need extra time to understand complex and a bstract ideas (such as current events, finances, discharge planning, medical issues, relationships, e tc)? Yes. COMPREHENSION - STEP 2: Does the patient require help to understand questions or statements about basic needs or ideas (such as hunger, thirst, sleep, safety, daily schedule, room location, or discomfort) half or more of the t clementina? No. COMPREHENSION - STEP 3: How often does the patient need help to understand directions and conversation about basic needs? 10% - 24% of the time COMPREHENSION - SCORE: 4-MIN EXPRESSION EXPRESSION: TYPE: Both EXPRESSION - STEP 1: Does the patient require help from a person or device, or need extra time expressing complex and abst ract ideas (such as current events, finances, discharge planning, medical issues, relationships, etc) ? Yes. EXPRESSION - STEP 2: Does the patient require help to express basic necessities or ideas (such as hunger, thirst, sleep, s afety, daily schedule, room location, or discomfort) half or more of the time? No. EXPRESSION - STEP 3: How often does the patient need help to express directions and conversation about basic needs? 10-24% of the time EXPRESSION - SCORE: 4-MIN SOCIAL INTERACTION: SOCIAL INTERACTION - STEP 1: Does the patient require a helper to interact with others in social and therapeutic situations? No. SOCIAL INTERACTION - STEP 2: Does the patient need extra time in social situations, OR does s/he interact with staff, other patien ts, and family members ONLY in structured environments, OR does s/he require medication for social in teraction? Yes, patient needs extra time SOCIAL INTERACTION - SCORE: 6-TRISTEN PROBLEM SOLVING: PROBLEM SOLVING - STEP 1: Does the patient need help from a person or device, or need extra time to solve complex problems such as managing a checking account or confronting interpersonal problems? Yes. PROBLEM SOLVING - STEP 2: Does the patient solve basic routine problems half or more of the time? Yes. PROBLEM SOLVING - STEP 3: How often does the patient need help to solve basic routine problems? 10%-24% of the time PROBLEM SOLVING - SCORE: 4-MIN MEMORY: MEMORY - STEP 1: Does the patient need help from a person or device, or need extra time to remember frequently encount ered people, daily routines, and executing requests? No. MEMORY - STEP 2: Does the patient have slight difficulty recognizing frequently encountered people, daily routines, or executing requests without the need for repetition or using self-initiated or environmental cues to remember? Yes. MEMORY - SCORE: 6-TRISTEN SIGNATURE PANEL: The following modified sections: Eating - Score, Grooming - Score, Dressing - Upper Body - Score, Gordo ssing - Lower Body - Score, Toileting - Score, Bladder Management - Score, Bowel Management - Score, Transfers: Bed, Chair, Wheelchair - Score, Transfers: Toilet - Score, Transfers: Shower - Score, Victoria sfers: Tub - Score, Locomotion: Walk - Score, Locomotion: Wheelchair - Score, Comprehension - Score, Expression - Score, Social Interaction - Score, Problem Solving - Score, Memory - Score were [electro nically] signed by Noreen Jiang CNA on MonJan 02 2018 01:37:30 GMT-0600 (Central Standard Time)
[2018-01-02] MEDS: ENOXAPARIN 40 MG/0.4 ML SQ SCH (07:18)
[2018-01-02] MEDS: ASPIRIN EC 81 MG TAB PO SCH (08:18)
[2018-01-02] MEDS: AMLODIPINE 5 MG TAB PO SCH (08:19)
[2018-01-02] MEDS: CLOPIDOGREL 75 MG TABLET PO SCH (08:19)
[2018-01-02] MEDS: FOLIC ACID 1 MG TABLET PO SCH (08:20)
[2018-01-02] MEDS ORDERED: DOCUSATE NA/SENNA CONC 1 TAB PO PRN (09:42)
--- NOTE | 2018-01-02 18:16 | R.PN ---
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 SUBJECTIVE: Pt denied any depression. Pt denied any Shortness of Breath. Ambulated 250' with contact guard assistance using a rolling walker and 750' without an assistive dev ice. Up and down 15 steps with contact guard assistance. VITAL SIGNS Temperature: 97.5 F SBP/DBP: 135/65 Pulse: 80 Resp: 16 Improved blood pressure control after increasing Amlodipine to 10 mg daily. MEDICATION ALLERGIES: No Known Drug Allergies (NKDA) ENVIRONMENTAL ALLERGIES: None Known - Substance Allergies None Known - Other Allergies None Known NURSING: - Shower allowing shower - Bladder care per protocol - Skin care per protocol PRECAUTIONS: - Weight Bearing Precaution WBAT left LE ACTIVITIES OOB only with supervision THERAPIES: - Occupational Therapy Evaluate and Treat. Visual Perceptual Training. Cognitive Retraining. - Speech Therapy Cognitive Training. Memory Strategies. Speech Intelligibility Training. Expressive Language Skills. R eceptive Language Skills. - Physical Therapy Evaluate and Treat. PHYSICAL EXAM - Gen Alert and awake Lying in bed No apparent distress Oriented to: person, time, and place - Skin No skin breakdown. Normacephalic - Eyes No abnormalities - ENMT No abnormalities - Neck No abnormalities - CVS RRR - Chest Clear - Abd + bowel sounds - GI Non tender Deferred - No abnormalities - Ext No significant edema - MSK 4+/5 weakness in left upper and lower extremity - Neuro 4/5 strength left upper and lower extremities. - Psych No abnormalities ASSESSMENT: Pt. is a 82 yo Right-handed ,female.On 12/27/2017 Pt. presented to [facility] with sudden onset of left-side weakness.On 12/27/2017 she was admitted to [facility] with diagnosis RIGHT CVA.her impairment category is Stroke 01 - Left Body (Right Brain) (01.1).Pre-morbidly, Pt. was independent/mod-I in Transfers Control, Communication, Social Cognition , Self-Care, Locomotion, and Sphincter Control; and she had good Sphincter Control.Currently, she has deficits of Transfers Control, Balance, Locomotion, Endurance, Safety Awareness, and Self-Care.Pt. i s now referred to [facility] for acute in-patient rehabilitation in order to m aximize patient's functional independence in activities of daily living, strength, ROM, and mobility. - Rehab Goal Patient has realistic goal of being discharged at assistance level 6-Rosalind to reside at Home with Fam wenceslao/Relatives. MDM/PLAN: - Physical Therapy Gait dysfunction - to improve, our physical therapists will perform initial evaluation of pt's statu s upon admission and devise an individualized program for Gait Training, and Wheel Chair mobility Inability to transfer - to improve, our physical therapists will perform initial evaluation of pt's status upon admission and devise an individualized program for Bed mobility Need for home safety evaluation - to improve, our physical therapists will perform initial evaluatio n of pt's status upon admission and devise an individualized program for Home Evaluation Need in caregiver upon discharge - to improve, our physical therapists will perform initial evaluati on of pt's status upon admission and devise an individualized program for Caregiver Training Edema - to improve, our physical therapists will perform initial evaluation of pt's status upon admi ssion and devise an individualized program for Elevation Training, and Lymphedema Therapy New precaution - to improve, our physical therapists will perform initial evaluation of pt's status upon admission and devise an individualized program for Patient precaution education Poor balance - to improve, our physical therapists will perform initial evaluation of pt's status up on admission and devise an individualized program for Balance Training Poor endurance - to improve, our physical therapists will perform initial evaluation of pt's status upon admission and devise an individualized program for Endurance Training Weakness - to improve, our physical therapists will perform initial evaluation of pt's status upon a dmission and devise an individualized program for Aquatic Therapy, Neuromuscular Reeducation, and Str engthening Achieving independence - to improve, our physical therapists will perform initial evaluation of pt's status upon admission and devise an individualized program for Community Reintegration Activities - Occupational Therapy ADL deficits - to improve, our occupation therapists will perform initial evaluation of pt's status upon admission and devise an individualized program for Bathing, Bed mobility, Community Reintegratio n, Cooking, Dressing, Eating, Fine Motor Skills, Grooming, Homemaking, Kitchen Mobility, Laundry, Pat ient Education, Safety Awareness, Splinting - Positioning, Transfers(Toilet, Tub, Shower), and Wheel Chair Management Need for adult care provider - to improve, our occupation therapists will perform initial evaluation of pt's status upon admission and devise an individualized program for Caregiver Training Weakness - to improve, our occupation therapists will perform initial evaluation of pt's status upon admission and devise an individualized program for Aquatic Therapy, Balance, Endurance, UE ROM, and UE strengthening - Diet Type Continue Regular - Diet - Liquid Texture Continue Regular - Tube Feed Continue N/A - Bladder care per protocol - Weight Bearing Precaution WBAT left LE - Skin care per protocol - Diet - Solid Texture Continue Regular - Shower allowing shower for Dementia, TBI, Stroke, or others FUNCTIONAL STATUS: UPDATED AT WEEKLY TEAM CONFERENCE - Bladder Same accident frequency: 7-Ind - No accidents in the past 7 days - Bowel Same accident frequency: 7-Ind - No accidents in the past 7 days - Walking Same score based on distance walked: 3(>=150ft) - Wheelchair Same score based on distance traveled: 0(N/A) FUNCTIONAL STATUS: - Self-Care A. Eating Ind B. Grooming sup C. Bathing sup D. Dressing - Upper sup E. Dressing - Lower sup F. Toileting sup - Sphincter Control G: Bladder control Ind H: Bowel control Ind - Transfers Control I. Bed/Chair/Wheelchair modA J. Toilet modA K. Tub/Shower ADNO - Locomotion L. Walk/Wheelchair (C) modA L. Walk/Wheelchair (W) modA M. Stairs ADNO - Communication N. Comprehension (B) Ind O. Expression (B) Ind - Social Cognition P. Social Interaction Ind Q. Problem Solving Ind R. Memory Ind - Endurance Fair - Balance Fair - Safety Awareness Fair CURRENT FUNC. DEFICITS: Transfers Control, Balance, Locomotion, Endurance, Safety Awareness, and Self-Care SIGNATURE PANEL: (DIET TECH)
--- NOTE | 2018-01-02 19:21 | P.PN ---
Subjective Date of Service: 01/04/18 Chief Complaint: CVA Subjective: No new changes, No C/O voiced, Working w/ PT Review of Systems As noted Physical Examination - Vital Signs Temperature: 96.4 F Blood Pressure: 135/65 Pulse: 80 Respirations: 18 Pulse Ox (%): 97 - Physical Exam General: Alert, In no apparent distress HEENT: Atraumatic, PERRLA, EOMI Neck: Supple, JVD not distended Respiratory: Clear to auscultation bilaterally, Normal air movement Cardiovascular: Regular rate/rhythm, Normal S1 S2 Gastrointestinal: Normal bowel sounds, No tenderness Musculoskeletal: No tenderness Integumentary: No rashes Neurological: Normal speech, Normal tone, Normal affect Lymphatics: No axilla or inguinal lymphadenopathy - Studies Medications List Reviewed: Yes Assessment And Plan - Plan (1) CVA (cerebral vascular accident) Onset Date: 12/27/17 Current Visit: No Status: Acute Qualifiers: CVA mechanism: stenosis Precerebral and cerebral artery: vertebral artery Laterality of affected vessel: right Qualified Code(s): I63.211 - Cerebral infarction due to unspecified occlusion or stenosis of right vertebral artery (2) Dyslipidemia Onset Date: 12/27/17 Current Visit: No Status: Acute (3) Hypertension Onset Date: 12/27/17 Current Visit: No Status: Acute Qualifiers: Hypertension type: essential hypertension (4) Obesity Current Visit: Yes Status: Acute Qualifiers: Obesity type: due to excess calories Obesity classification: adult class 1 (BMI 30 - 34.9) Serious obesity comorbidity presence: without serious comorbidity Body mass index: BMI 34.0-34.9 Qualified Code(s): E66.09 - Other obesity due to excess calories; Z68.34 - Body mass index (BMI) 34.0-34.9, adult - Plan BP now well controlled w adjustment of meds Cont rehab .
[2018-01-02] MEDS: ATORVASTATIN 40 MG TAB PO SCH (19:37)
[2018-01-02] MEDS: LOSARTAN POTASSIUM 50 MG TABLET PO SCH (19:38)
--- NOTE | 2018-01-03 03:18 | FAST ---
SHIFT START DATE/TIME: 01/02/2018 19:00 (PAPER CUP MACHINE OPERATOR) SHIFT END DATE/TIME: 01/03/2018 07:00 (PAPER CUP MACHINE OPERATOR) NAME AMY WOMACK DATE OF : 1935 DATE OF ADMISSION: 12/30/2017 18:22 (PAPER CUP MACHINE OPERATOR) PHONE: AGE: 82 SSN# [id number] ENCOUNTER PHYSICIAN: Dr. Conrado Hunter M.D. 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 EATING: Activity did not occur on this shift EATING - SCORE: 0-UNK GROOMING: Activity did not occur on this shift GROOMING - SCORE: 0-UNK BATHING: Activity did not occur on this shift BATHING - SCORE: 0-UNK DRESSING - UPPER BODY: Patient is not dressing in public clothing ARTICLES SCORE Total number of steps: 0 DRESSING - UPPER BODY - SCORE: 0-UNK DRESSING - LOWER BODY: Patient is not dressing in public clothing ARTICLES SCORE Total number of steps: 0 DRESSING - LOWER BODY - SCORE: 0-UNK TOILETING: Activity did not occur on this shift TOILETING - SCORE: 0-UNK BLADDER MANAGEMENT: [place] removes incontinent device (Depends, pull ups, etc.); cleans the patient after accident / inco ntinent episode; and, applies new incontinent device. BLADDER MANAGEMENT - SCORE: 1-DEP BOWEL MANAGEMENT: Activity did not occur on this shift BOWEL MANAGEMENT - SCORE: 7-IND TRANSFERS: BED, CHAIR, WHEELCHAIR: Activity did not occur on this shift TRANSFERS: BED, CHAIR, WHEELCHAIR - SCORE: 0-UNK TRANSFERS: TOILET: Activity did not occur on this shift TRANSFERS: TOILET - SCORE: 0-UNK TRANSFERS: SHOWER: Activity did not occur on this shift TRANSFERS: SHOWER - SCORE: 0-UNK TRANSFERS: TUB: Activity did not occur on this shift TRANSFERS: TUB - SCORE: 0-UNK LOCOMOTION: WALK: Activity did not occur on this shift LOCOMOTION: WALK - SCORE: 0-UNK LOCOMOTION: WHEELCHAIR: Activity did not occur on this shift LOCOMOTION: WHEELCHAIR - SCORE: 0-UNK COMPREHENSION: COMPREHENSION: TYPE: Both COMPREHENSION - STEP 1: Does the patient require help from a person or device, or need extra time to understand complex and a bstract ideas (such as current events, finances, discharge planning, medical issues, relationships, e tc)? No. COMPREHENSION - STEP 2: Does the patient need extra time, require an assistive device (such as glasses for visual comprehensi on or a hearing aid for auditory comprehension) or does s/he have mild difficulty understanding compl ex and abstract information? Yes. COMPREHENSION - SCORE: 6-TRISTEN EXPRESSION EXPRESSION: TYPE: Both EXPRESSION - STEP 1: Does the patient require help from a person or device, or need extra time expressing complex and abst ract ideas (such as current events, finances, discharge planning, medical issues, relationships, etc) ? Yes. EXPRESSION - STEP 2: Does the patient require help to express basic necessities or ideas (such as hunger, thirst, sleep, s afety, daily schedule, room location, or discomfort) half or more of the time? No. EXPRESSION - STEP 3: How often does the patient need help to express directions and conversation about basic needs? 10-24% of the time EXPRESSION - SCORE: 4-MIN SOCIAL INTERACTION: SOCIAL INTERACTION - STEP 1: Does the patient require a helper to interact with others in social and therapeutic situations? No. SOCIAL INTERACTION - STEP 2: Does the patient need extra time in social situations, OR does s/he interact with staff, other patien ts, and family members ONLY in structured environments, OR does s/he require medication for social in teraction? Yes, patient needs extra time SOCIAL INTERACTION - SCORE: 6-TRISTEN PROBLEM SOLVING: PROBLEM SOLVING - STEP 1: Does the patient need help from a person or device, or need extra time to solve complex problems such as managing a checking account or confronting interpersonal problems? Yes. PROBLEM SOLVING - STEP 2: Does the patient solve basic routine problems half or more of the time? Yes. PROBLEM SOLVING - STEP 3: How often does the patient need help to solve basic routine problems? 10%-24% of the time PROBLEM SOLVING - SCORE: 4-MIN MEMORY: MEMORY - STEP 1: Does the patient need help from a person or device, or need extra time to remember frequently encount ered people, daily routines, and executing requests? No. MEMORY - STEP 2: Does the patient have slight difficulty recognizing frequently encountered people, daily routines, or executing requests without the need for repetition or using self-initiated or environmental cues to remember? Yes. MEMORY - SCORE: 6-TRISTEN SIGNATURE PANEL: The following modified sections: Eating - Score, Grooming - Score, Dressing - Upper Body - Score, Gordo ssing - Lower Body - Score, Toileting - Score, Bladder Management - Score, Bowel Management - Score, Transfers: Bed, Chair, Wheelchair - Score, Transfers: Toilet - Score, Transfers: Shower - Score, Victoria sfers: Tub - Score, Locomotion: Walk - Score, Locomotion: Wheelchair - Score, Comprehension - Score, Expression - Score, Social Interaction - Score, Problem Solving - Score, Memory - Score were [electro nically] signed by Noreen Jiang CNA on MonJan 03 2018 03:17:28 GMT-0600 (Central Standard Time)
[2018-01-03] MEDS: ENOXAPARIN 40 MG/0.4 ML SQ SCH (07:28)
[2018-01-03] MEDS: FOLIC ACID 1 MG TABLET PO SCH (08:10)
[2018-01-03] MEDS: CLOPIDOGREL 75 MG TABLET PO SCH (08:10)
[2018-01-03] MEDS: ASPIRIN EC 81 MG TAB PO SCH (08:10)
[2018-01-03] MEDS: AMLODIPINE 5 MG TAB PO SCH (08:11)
[2018-01-03 09:25] LABS: Absolute Lymphocytes (CBC) 2.2 K/uL (0.7-4.9); Absolute Monocytes 0.4 K/uL (0.1-1.3); Absolute Neutrophil 4.9 K/uL (1.8-8.0); Basophils % 0.5 % (0-1.3); Eosinophils % 2.4 % (0-4.4); Hematocrit 43.1 % (36.0-45.0); Lymphocytes % 28.5 % (15.3-44.8); MCH 30.7 pg (27.0-35.0); MCV 90.1 fL (80-100); MPV 8.1 fL (7.6-11.3); Monocytes % 5.2 % (3.3-12.3); RBC Red Blood Cell Count 4.78 M/uL (3.86-4.86)
--- NOTE | 2018-01-03 09:43 | P.RH.PN ---
Estimated Length of Stay: 23 Expected Discharge Date: 12/21/17 Discharge Disposition Plan: Home Family Support: Yes Residential Goal: Mobility, Transfers, Self Care Vital Signs: Last Vital Signs Temp 97.6 F 01/03/18 08:00 Pulse 73 01/03/18 08:11 Resp 16 01/03/18 08:00 BP 150/67 H 01/03/18 08:11 Pulse Ox 98 01/03/18 08:00 Laboratory: Laboratory Last Values WBC 7.8 K/uL (4.3-10.9) D 01/03/18 09:01 RBC 4.78 M/uL (3.86-4.86) 01/03/18 09:01 Hgb 14.7 g/dL (12.0-15.0) 01/03/18 09:01 Hct 43.1 % (36.0-45.0) 01/03/18 09:01 MCV 90.1 fL (80-100) 01/03/18 09:01 MCH 30.7 pg (27.0-35.0) 01/03/18 09:01 MCHC 34.1 g/dL (32.0-36.0) 01/03/18 09:01 RDW 13.3 % (12.1-15.2) 01/03/18 09:01 Plt Count 329 K/uL (152-406) 01/03/18 09:01 MPV 8.1 fL (7.6-11.3) 01/03/18 09:01 Neutrophils % 63.4 % (41.7-73.7) 01/03/18 09:01 Lymphocytes % 28.5 % (15.3-44.8) 01/03/18 09:01 Monocytes % 5.2 % (3.3-12.3) 01/03/18 09:01 Eosinophils % 2.4 % (0-4.4) 01/03/18 09:01 Basophils % 0.5 % (0-1.3) 01/03/18 09:01 Absolute Neutrophils 4.9 K/uL (1.8-8.0) 01/03/18 09:01 Absolute Lymphocytes 2.2 K/uL (0.7-4.9) 01/03/18 09:01 Absolute Monocytes 0.4 K/uL (0.1-1.3) 01/03/18 09:01 Absolute Eosinophils 0.2 K/uL (0-0.5) 01/03/18 09:01 Absolute Basophils 0.0 K/uL (0-0.5) 01/03/18 09:01 Sodium 141 mmol/L (136-145) 12/30/17 06:12 Potassium 3.8 mmol/L (3.5-5.1) 12/30/17 06:12 Chloride 104 mmol/L (98-107) 12/30/17 06:12 Carbon Dioxide 29 mmol/L (21-32) 12/30/17 06:12 BUN 7 mg/dL (7-18) 12/30/17 06:12 Creatinine 0.50 mg/dL (0.55-1.3) L 12/30/17 06:12 Estimated GFR > 90 mL/min (=/>90) 12/30/17 06:12 Glucose 106 mg/dL (74-106) 12/30/17 06:12 Calcium 8.7 mg/dL (8.5-10.1) 12/30/17 06:12 Magnesium 2.4 mg/dL (1.8-2.4) 12/30/17 06:12 Albumin 3.4 g/dL (3.4-5.0) 12/30/17 06:12 Prealbumin 29.8 mg/dL (20-40) 12/30/17 06:12 Weight: 127 lb 12.8 oz Wound Present: No Closed Surgical Incision Present: No Negative Pressure Wound Therapy Present: No Physician Update: Her labs have been reviewed and are normal. She is doing very well with physical, occupational and speech therapy. Functional Improvement: Patient has met all short-term goals at this time and is progressing well w/ physical ability and cognitive ability. Patient is adhering to VC w/ improvement. 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 Please see the Rehabilitation Signature page for all necessary signatures.
[2018-01-03 09:48] LABS: Albumin 3.8 g/dL (3.4-5.0); BUN Blood Urea Nitrogen 18 mg/dL (7-18); Bicarbonate 27 mmol/L (21-32); Glucose Level 164 mg/dL (74-106); Magnesium 2.3 mg/dL (1.8-2.4); Potassium 3.8 mmol/L (3.5-5.1); Prealbumin 33.5 mg/dL (20-40); Sodium Level 141 mmol/L (136-145)
--- NOTE | 2018-01-03 10:07 | FAST ---
SHIFT START DATE/TIME: 01/03/2018 07:00 (ELEVATOR EXAMINER) SHIFT END DATE/TIME: 01/03/2018 19:00 (ELEVATOR EXAMINER) NAME AMY WOMACK DATE OF : 1935 DATE OF ADMISSION: 12/30/2017 18:22 (ELEVATOR EXAMINER) PHONE: AGE: 82 SSN# [id number] ENCOUNTER PHYSICIAN: Dr. Conrado Hunter M.D. 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 EATING: EATING - STEP 1: Does the patient require the assistance of a person or device, or need extra time when eating? Yes. EATING - STEP 2: Does the patient require the assistance of a helper? Yes. EATING - STEP 3: Does the patient perform half or more of the eating tasks? Yes. EATING - STEP 4: Does the patient need only supervision, cuing, coaxing OR help to apply an orthosis OR help to cut fo od, open containers, pour liquids, or butter bread? Yes. EATING - SCORE: 5-SUP GROOMING: Comb/brush hair Oral care Wash, rinse, and dry face Wash, rinse, and dry hands GROOMING - STEP 1: Does the patient require the assistance of a person or device, or need extra time when grooming? Yes. GROOMING - STEP 2: Does the patient require the assistance of a helper? No. The patient only requires an assistive devic e, OR takes more than reasonable time to groom, OR there is a concern for safety as the patient groom s GROOMING - SCORE: 6-TRISTEN BATHING: Activity did not occur on this shift BATHING - SCORE: 0-UNK DRESSING - UPPER BODY: Activity did not occur on this shift ARTICLES SCORE Total number of steps: 0 DRESSING - UPPER BODY - SCORE: 0-UNK DRESSING - LOWER BODY: Activity did not occur on this shift ARTICLES SCORE Total number of steps: 0 DRESSING - LOWER BODY - SCORE: 0-UNK TOILETING: TOILETING - STEP 1: Does the patient require the assistance of a person or device, or need extra time with toileting? Yes . TOILETING - STEP 2: Does the patient require the assistance of a helper? Yes. TOILETING - STEP 3: How much assistance does the patient require from the helper? Hands-on assistance from the helper TOILETING - STEP 4: Of the 3 tasks: 1) Adjusting clothing prior to use, 2) Cleansing of perineal area, 3) Adjusting clot elizabeth after use; How many tasks does the patient perform WITHOUT assistance of the helper? Three tasks with steadying assistance from the helper TOILETING - SCORE: 4-MIN BLADDER MANAGEMENT: BLADDER MANAGEMENT - STEP 1: Does the patient control the bladder completely and intentionally without equipment or devices or med ications, and is always continent? No. BLADDER MANAGEMENT - STEP 2: Does the patient require the assistance of a helper? No, patient requires and independently uses an a ssistive device, such as a urinal, bedpan, bedside commode, catheter, absorbent pad, or collecting de vice BLADDER MANAGEMENT - SCORE: 6-TRISTEN BOWEL MANAGEMENT: BOWEL MANAGEMENT - STEP 1: Does the patient control bowels completely and intentionally without equipment devices or medications AND is always continent? No. BOWEL MANAGEMENT - STEP 2: Does the patient require the assistance of a helper? No, patient requires and manages independently a n assistive device such as a bedpan, bedside commode, absorbent pad, incontinent device, or collectin g device BOWEL MANAGEMENT - SCORE: 6-TRISTEN TRANSFERS: BED, CHAIR, WHEELCHAIR: TRANSFERS: BED, CHAIR, WHEELCHAIR - STEP 1: Does the patient require assitance of a person or device, or need extra time with bed, chair, or whee lchair transfers? Yes. TRANSFERS: BED, CHAIR, WHEELCHAIR - STEP 2: Does the patient require the assistance of a helper? Yes. TRANSFERS: BED, CHAIR, WHEELCHAIR - STEP 3: How much assistance does the patient require from the helper? Steadying/guiding assistance TRANSFERS: BED, CHAIR, WHEELCHAIR - SCORE: 4-MIN TRANSFERS: TOILET: TRANSFERS: TOILET - STEP 1: Does the patient require the assistance of a person or device, or need extra time with toilet transfe rs? Yes. TRANSFERS: TOILET - STEP 2: Does the patient require the assistance of a helper? Yes. TRANSFERS: TOILET - STEP 3: How much assistance does the patient require from the helper? Patient performs half or more of the tr ansferring tasks TRANSFERS: TOILET - STEP 4: Does the patient need only incidental help such as contact guard or steadying during toilet transfer? Yes. TRANSFERS: TOILET - SCORE: 4-MIN TRANSFERS: SHOWER: Activity did not occur on this shift TRANSFERS: SHOWER - SCORE: 0-UNK TRANSFERS: TUB: Activity did not occur on this shift TRANSFERS: TUB - SCORE: 0-UNK LOCOMOTION: WALK: Activity did not occur on this shift LOCOMOTION: WALK - SCORE: 0-UNK LOCOMOTION: WHEELCHAIR: Activity did not occur on this shift LOCOMOTION: WHEELCHAIR - SCORE: 0-UNK COMPREHENSION: COMPREHENSION: TYPE: Both COMPREHENSION - STEP 1: Does the patient require help from a person or device, or need extra time to understand complex and a bstract ideas (such as current events, finances, discharge planning, medical issues, relationships, e tc)? No. COMPREHENSION - STEP 2: Does the patient need extra time, require an assistive device (such as glasses for visual comprehensi on or a hearing aid for auditory comprehension) or does s/he have mild difficulty understanding compl ex and abstract information? Yes. COMPREHENSION - SCORE: 6-TRISTEN EXPRESSION EXPRESSION: TYPE: Both EXPRESSION - STEP 1: Does the patient require help from a person or device, or need extra time expressing complex and abst ract ideas (such as current events, finances, discharge planning, medical issues, relationships, etc) ? No. EXPRESSION - STEP 2: Does the patient need extra time, require an assistive device (such as augmentive communication syste m or a communication board), OR does s/he have mild difficulty expressing complex and abstract ideas (including mild dysarthria or mild word-find problems)? Yes. EXPRESSION - SCORE: 6-TRISTEN SOCIAL INTERACTION: SOCIAL INTERACTION - STEP 1: Does the patient require a helper to interact with others in social and therapeutic situations? No. SOCIAL INTERACTION - STEP 2: Does the patient need extra time in social situations, OR does s/he interact with staff, other patien ts, and family members ONLY in structured environments, OR does s/he require medication for social in teraction? Yes, patient needs extra time SOCIAL INTERACTION - SCORE: 6-TRISTEN PROBLEM SOLVING: PROBLEM SOLVING - STEP 1: Does the patient need help from a person or device, or need extra time to solve complex problems such as managing a checking account or confronting interpersonal problems? No. PROBLEM SOLVING - STEP 2: Does the patient require extra time to make decisions or solve problems, OR does s/he have slight dif ficulty reading, initiating, or self-correcting in unfamiliar situations? Yes, patient needs extra ti me. PROBLEM SOLVING - SCORE: 6-TRISTEN MEMORY: MEMORY - STEP 1: Does the patient need help from a person or device, or need extra time to remember frequently encount ered people, daily routines, and executing requests? No. MEMORY - STEP 2: Does the patient have slight difficulty recognizing frequently encountered people, daily routines, or executing requests without the need for repetition or using self-initiated or environmental cues to remember? Yes. MEMORY - SCORE: 6-TRISTEN SIGNATURE PANEL: The following modified sections: Eating - Score, Grooming - Score, Bathing - Score, Dressing - Upper Body - Score, Dressing - Lower Body - Score, Toileting - Score, Bladder Management - Score, Bowel Man agement - Score, Transfers: Bed, Chair, Wheelchair - Score, Transfers: Toilet - Score, Transfers: Zahra wer - Score, Transfers: Tub - Score, Locomotion: Walk - Score, Locomotion: Wheelchair - Score, Compre hension - Score, Expression - Score, Social Interaction - Score, Problem Solving - Score, Memory - Sc ore were [electronically] signed by David Gonzalez on MonJan 03 2018 10:06:49 GMT-0600 (Central Standard Time)
--- NOTE | 2018-01-03 14:20 | FAST ---
ENCOUNTER DATE AND TIME: 01/03/2018 08:00 (BODY TEAM MEMBER) NAME AMY WOMACK DATE OF : 1935 DATE OF ADMISSION: 12/30/2017 18:22 (BODY TEAM MEMBER) PHONE: AGE: 82 SSN# [id number] ENCOUNTER PHYSICIAN: Dr. Conrado Hunter M.D. 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 EATING: Activity did not occur on this shift EATING - SCORE: 0-UNK GROOMING: Comb/brush hair Wash, rinse, and dry face Wash, rinse, and dry hands GROOMING - STEP 1: Does the patient require the assistance of a person or device, or need extra time when grooming? Yes. GROOMING - STEP 2: Does the patient require the assistance of a helper? Yes. GROOMING - STEP 3: How much assistance does the patient require from the helper? Incidental touching assistance from the helper while grooming GROOMING - SCORE: 4-MIN BATHING: Abdomen Buttocks Chest Left arm Left lower leg and foot Left upper leg Perineal area Right arm Right lower leg and foot Right upper leg BATHING - STEP 1: Does the patient require the assistance of a person or device, or need extra time when bathing? Yes. BATHING - STEP 2: Does the patient require the assistance of a helper? Yes. BATHING - STEP 3: How much assistance does the patient require from the helper? Only incidental help such as placement of a wash cloth in his/her hand a few times as s/he bathes OR help to bathe just one or two areas of the body BATHING - SCORE: 4-MIN DRESSING - UPPER BODY: Sweater (four steps) T-shirt/pullover shirt (four steps) ARTICLES SCORE Total number of steps: 8 DRESSING - UPPER BODY - STEP 1: Does the patient require help from a person or device, or need extra time when dressing above the [address]? Yes. DRESSING - UPPER BODY - STEP 2: Does the patient require the assistance of a helper? Yes. DRESSING - UPPER BODY - STEP 3: Does the helper touch the patient while dressing? No. DRESSING - UPPER BODY - SCORE: 5-SUP DRESSING - LOWER BODY: Elastic waist pants (three steps) Slip-on shoe - Left foot (one step) Slip-on shoe - Right foot (one step) Sock - Left foot (one step) Sock - Right foot (one step) Underwear (three steps) ARTICLES SCORE Total number of steps: 10 DRESSING - LOWER BODY - STEP 1: Does the patient require help from a person or device, or need extra time when dressing below the [address]? Yes. DRESSING - LOWER BODY - STEP 2: Does the patient require the assistance of a helper? Yes. DRESSING - LOWER BODY - STEP 3: Does the helper touch the patient while dressing? Yes. DRESSING - LOWER BODY - STEP 4: How many of the total steps does the patient complete on his/her own? 9 DRESSING - LOWER BODY - SCORE: 4-MIN TOILETING: Activity did not occur on this shift TOILETING - SCORE: 0-UNK BLADDER MANAGEMENT: Activity did not occur on this shift BLADDER MANAGEMENT - SCORE: 7-IND BOWEL MANAGEMENT: Activity did not occur on this shift BOWEL MANAGEMENT - SCORE: 7-IND TRANSFERS: BED, CHAIR, WHEELCHAIR: Activity did not occur on this shift TRANSFERS: BED, CHAIR, WHEELCHAIR - SCORE: 0-UNK TRANSFERS: TOILET: Activity did not occur on this shift TRANSFERS: TOILET - SCORE: 0-UNK TRANSFERS: SHOWER: TRANSFERS: SHOWER - STEP 1: Does the patient require the assistance of a person or device, or need extra time with shower transfe rs? Yes. TRANSFERS: SHOWER - STEP 2: Does the patient require the assistance of a helper? Yes. TRANSFERS: SHOWER - STEP 3: How much assistance does the patient require from the helper? Only incidental help such as contact gu arding or steadying during shower transfers, or help to lift one leg into the shower TRANSFERS: SHOWER - SCORE: 4-MIN TRANSFERS: TUB: Activity did not occur on this shift TRANSFERS: TUB - SCORE: 0-UNK LOCOMOTION: WALK: Activity did not occur on this shift LOCOMOTION: WALK - SCORE: 0-UNK LOCOMOTION: WHEELCHAIR: Activity did not occur on this shift LOCOMOTION: WHEELCHAIR - SCORE: 0-UNK LOCOMOTION: STAIRS: Activity did not occur on this shift LOCOMOTION: STAIRS - SCORE: 0-UNK COMPREHENSION: COMPREHENSION - SCORE: 0-UNK EXPRESSION EXPRESSION - SCORE: 0-UNK SOCIAL INTERACTION: SOCIAL INTERACTION - SCORE: 0-UNK PROBLEM SOLVING: PROBLEM SOLVING - SCORE: 0-UNK MEMORY: MEMORY - SCORE: 0-UNK SIGNATURE PANEL: The following modified sections: Eating - Score, Grooming - Score, Bathing - Score, Dressing - Upper Body - Score, Dressing - Lower Body - Score, Toileting - Score, Transfers: Bed, Chair, Wheelchair - S core, Transfers: Toilet - Score, Transfers: Shower - Score, Transfers: Tub - Score, Comprehension - S core, Expression - Score, Social Interaction - Score, Problem Solving - Score, Memory - Score were [e lectronically] signed by SORIN Calix on MonJan 03 2018 14:19:56 T-0600 ([place] Time)
--- NOTE | 2018-01-03 15:21 | FAST ---
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 Conrado Hunter M.D. 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 EATING: Activity did not occur on this shift EATING - SCORE: 0-UNK GROOMING: Activity did not occur on this shift GROOMING - SCORE: 0-UNK BATHING: Activity did not occur on this shift BATHING - SCORE: 0-UNK DRESSING - UPPER BODY: Activity did not occur on this shift Patient is not dressing in public clothing ARTICLES SCORE Total number of steps: 0 DRESSING - UPPER BODY - SCORE: 0-UNK DRESSING - LOWER BODY: Activity did not occur on this shift Patient is not dressing in public clothing ARTICLES SCORE Total number of steps: 0 DRESSING - LOWER BODY - SCORE: 0-UNK TOILETING: Activity did not occur on this shift TOILETING - SCORE: 0-UNK BLADDER MANAGEMENT: Activity did not occur on this shift BLADDER MANAGEMENT - SCORE: 7-IND BOWEL MANAGEMENT: Activity did not occur on this shift BOWEL MANAGEMENT - SCORE: 7-IND TRANSFERS: BED, CHAIR, WHEELCHAIR: TRANSFERS: BED, CHAIR, WHEELCHAIR - STEP 1: Does the patient require assitance of a person or device, or need extra time with bed, chair, or whee lchair transfers? Yes. TRANSFERS: BED, CHAIR, WHEELCHAIR - STEP 2: Does the patient require the assistance of a helper? Yes. TRANSFERS: BED, CHAIR, WHEELCHAIR - STEP 3: How much assistance does the patient require from the helper? Steadying/guiding assistance TRANSFERS: BED, CHAIR, WHEELCHAIR - SCORE: 4-MIN TRANSFERS: TOILET: Activity did not occur on this shift TRANSFERS: TOILET - SCORE: 0-UNK TRANSFERS: SHOWER: Activity did not occur on this shift TRANSFERS: SHOWER - SCORE: 0-UNK TRANSFERS: TUB: Activity did not occur on this shift TRANSFERS: TUB - SCORE: 0-UNK LOCOMOTION: WALK: LOCOMOTION: WALK - STEP 1: Does the patient need help from a person or device, or need extra time to walk 150 feet? Yes. LOCOMOTION: WALK - STEP 2: How much assistance does the patient require to walk a minimum of 150 feet? Only incidental help such as contact guarding or steadying LOCOMOTION: WALK - SCORE: 4-MIN LOCOMOTION: WHEELCHAIR: Activity did not occur on this shift LOCOMOTION: WHEELCHAIR - SCORE: 0-UNK LOCOMOTION: STAIRS: LOCOMOTION: STAIRS - STEP 1: Does the patient need help to go up and down 12 to 14 stairs? Yes. LOCOMOTION: STAIRS - STEP 2: How much assistance does the patient need from the helper to go a minimum of 12 to 14 stairs? Only in cidental help such as contact guarding or steadying LOCOMOTION: STAIRS - SCORE: 4-MIN COMPREHENSION: COMPREHENSION - SCORE: 0-UNK EXPRESSION EXPRESSION - SCORE: 0-UNK SOCIAL INTERACTION: SOCIAL INTERACTION - SCORE: 0-UNK PROBLEM SOLVING: PROBLEM SOLVING - SCORE: 0-UNK MEMORY: MEMORY - SCORE: 0-UNK SIGNATURE PANEL: The following modified sections: Transfers: Bed, Chair, Wheelchair - Score, Transfers: Toilet - Score , Locomotion: Walk - Score, Locomotion: Wheelchair - Score, Locomotion: Stairs - Score were [electron ically] signed by Arturo Yeboah PTA on MonJan 03 2018 15:20:39 GMT-0600 (Central Standard Time)
--- NOTE | 2018-01-03 15:22 | FAST ---
ENCOUNTER DATE AND TIME: 01/03/2018 08:00 (SHANK PIECE TACKER) NAME AMY WOMACK DATE OF : 1935 DATE OF ADMISSION: 12/30/2017 18:22 (SHANK PIECE TACKER) PHONE: AGE: 82 SSN# [id number] ENCOUNTER PHYSICIAN: Dr. Conrado Hunter M.D. 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 EATING: Activity did not occur on this shift EATING - SCORE: 0-UNK GROOMING: Activity did not occur on this shift GROOMING - SCORE: 0-UNK BATHING: Activity did not occur on this shift BATHING - SCORE: 0-UNK DRESSING - UPPER BODY: Activity did not occur on this shift Patient is not dressing in public clothing ARTICLES SCORE Total number of steps: 0 DRESSING - UPPER BODY - SCORE: 0-UNK DRESSING - LOWER BODY: Activity did not occur on this shift Patient is not dressing in public clothing ARTICLES SCORE Total number of steps: 0 DRESSING - LOWER BODY - SCORE: 0-UNK TOILETING: Activity did not occur on this shift TOILETING - SCORE: 0-UNK BLADDER MANAGEMENT: Activity did not occur on this shift BLADDER MANAGEMENT - SCORE: 7-IND BOWEL MANAGEMENT: Activity did not occur on this shift BOWEL MANAGEMENT - SCORE: 7-IND TRANSFERS: BED, CHAIR, WHEELCHAIR: TRANSFERS: BED, CHAIR, WHEELCHAIR - STEP 1: Does the patient require assitance of a person or device, or need extra time with bed, chair, or whee lchair transfers? Yes. TRANSFERS: BED, CHAIR, WHEELCHAIR - STEP 2: Does the patient require the assistance of a helper? Yes. TRANSFERS: BED, CHAIR, WHEELCHAIR - STEP 3: How much assistance does the patient require from the helper? Steadying/guiding assistance TRANSFERS: BED, CHAIR, WHEELCHAIR - SCORE: 4-MIN TRANSFERS: TOILET: Activity did not occur on this shift TRANSFERS: TOILET - SCORE: 0-UNK TRANSFERS: SHOWER: Activity did not occur on this shift TRANSFERS: SHOWER - SCORE: 0-UNK TRANSFERS: TUB: Activity did not occur on this shift TRANSFERS: TUB - SCORE: 0-UNK LOCOMOTION: WALK: LOCOMOTION: WALK - STEP 1: Does the patient need help from a person or device, or need extra time to walk 150 feet? Yes. LOCOMOTION: WALK - STEP 2: How much assistance does the patient require to walk a minimum of 150 feet? Only incidental help such as contact guarding or steadying LOCOMOTION: WALK - SCORE: 4-MIN LOCOMOTION: WHEELCHAIR: Activity did not occur on this shift LOCOMOTION: WHEELCHAIR - SCORE: 0-UNK LOCOMOTION: STAIRS: LOCOMOTION: STAIRS - STEP 1: Does the patient need help to go up and down 12 to 14 stairs? Yes. LOCOMOTION: STAIRS - STEP 2: How much assistance does the patient need from the helper to go a minimum of 12 to 14 stairs? Only in cidental help such as contact guarding or steadying LOCOMOTION: STAIRS - SCORE: 4-MIN COMPREHENSION: COMPREHENSION - SCORE: 0-UNK EXPRESSION EXPRESSION - SCORE: 0-UNK SOCIAL INTERACTION: SOCIAL INTERACTION - SCORE: 0-UNK PROBLEM SOLVING: PROBLEM SOLVING - SCORE: 0-UNK MEMORY: MEMORY - SCORE: 0-UNK SIGNATURE PANEL: The following modified sections: Transfers: Bed, Chair, Wheelchair - Score, Transfers: Toilet - Score , Locomotion: Walk - Score, Locomotion: Wheelchair - Score, Locomotion: Stairs - Score were [electron ically] signed by Arturo Yeboah PTA on MonJan 03 2018 15:21:44 GMT-0600 (Central Standard Time)
[2018-01-03] MEDS: LOSARTAN POTASSIUM 50 MG TABLET PO SCH (21:00)
[2018-01-03] MEDS: ATORVASTATIN 40 MG TAB PO SCH (21:00)
--- NOTE | 2018-01-04 02:45 | FAST ---
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 Conrado Hunter M.D. 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 EATING: Activity did not occur on this shift EATING - SCORE: 0-UNK GROOMING: Oral care Wash, rinse, and dry face Wash, rinse, and dry hands GROOMING - STEP 1: Does the patient require the assistance of a person or device, or need extra time when grooming? Yes. GROOMING - STEP 2: Does the patient require the assistance of a helper? Yes. GROOMING - STEP 3: How much assistance does the patient require from the helper? Only prior equipment preparation/set up from the helper GROOMING - SCORE: 5-SUP BATHING: Activity did not occur on this shift BATHING - SCORE: 0-UNK DRESSING - UPPER BODY: Patient is not dressing in public clothing ARTICLES SCORE Total number of steps: 0 DRESSING - UPPER BODY - SCORE: 0-UNK DRESSING - LOWER BODY: Patient is not dressing in public clothing ARTICLES SCORE Total number of steps: 0 DRESSING - LOWER BODY - SCORE: 0-UNK TOILETING: TOILETING - STEP 1: Does the patient require the assistance of a person or device, or need extra time with toileting? Yes . TOILETING - STEP 2: Does the patient require the assistance of a helper? Yes. TOILETING - STEP 3: How much assistance does the patient require from the helper? Hands-on assistance from the helper TOILETING - STEP 4: Of the 3 tasks: 1) Adjusting clothing prior to use, 2) Cleansing of perineal area, 3) Adjusting clot elizabeth after use; How many tasks does the patient perform WITHOUT assistance of the helper? No tasks; h chayo performs all three tasks TOILETING - SCORE: 1-DEP BLADDER MANAGEMENT: BLADDER MANAGEMENT - STEP 1: Does the patient control the bladder completely and intentionally without equipment or devices or med ications, and is always continent? No. BLADDER MANAGEMENT - STEP 2: Does the patient require the assistance of a helper? Yes. BLADDER MANAGEMENT - STEP 3: How much assistance does the patient require from the helper? Patient requires contact assistance fro m the helper BLADDER MANAGEMENT - STEP 4: How much contact assistance does the patient require from the helper? Patient requires minimal assist ance to maintain an external device - by positioning, and the patient performs 75% or more of bladder management tasks, while the helper provides less than 25% of the assistance to position patient on / off bedpan BLADDER MANAGEMENT - SCORE: 4-MIN BOWEL MANAGEMENT: Activity did not occur on this shift BOWEL MANAGEMENT - SCORE: 7-IND TRANSFERS: BED, CHAIR, WHEELCHAIR: TRANSFERS: BED, CHAIR, WHEELCHAIR - STEP 1: Does the patient require assitance of a person or device, or need extra time with bed, chair, or whee lchair transfers? Yes. TRANSFERS: BED, CHAIR, WHEELCHAIR - STEP 2: Does the patient require the assistance of a helper? Yes. TRANSFERS: BED, CHAIR, WHEELCHAIR - STEP 3: How much assistance does the patient require from the helper? Lifting of the legs TRANSFERS: BED, CHAIR, WHEELCHAIR - STEP 4: How many legs does the patient require the helper to lift? both legs TRANSFERS: BED, CHAIR, WHEELCHAIR - SCORE: 3-MOD TRANSFERS: TOILET: TRANSFERS: TOILET - STEP 1: Does the patient require the assistance of a person or device, or need extra time with toilet transfe rs? Yes. TRANSFERS: TOILET - STEP 2: Does the patient require the assistance of a helper? Yes. TRANSFERS: TOILET - STEP 3: How much assistance does the patient require from the helper? Patient performs half or more of the tr ansferring tasks TRANSFERS: TOILET - STEP 4: Does the patient need only incidental help such as contact guard or steadying during toilet transfer? No. Patient needs more than incidental help TRANSFERS: TOILET - SCORE: 3-MOD TRANSFERS: SHOWER: Activity did not occur on this shift TRANSFERS: SHOWER - SCORE: 0-UNK TRANSFERS: TUB: Activity did not occur on this shift TRANSFERS: TUB - SCORE: 0-UNK LOCOMOTION: WALK: Activity did not occur on this shift LOCOMOTION: WALK - SCORE: 0-UNK LOCOMOTION: WHEELCHAIR: Activity did not occur on this shift LOCOMOTION: WHEELCHAIR - SCORE: 0-UNK COMPREHENSION: COMPREHENSION: TYPE: Both COMPREHENSION - STEP 1: Does the patient require help from a person or device, or need extra time to understand complex and a bstract ideas (such as current events, finances, discharge planning, medical issues, relationships, e tc)? No. COMPREHENSION - STEP 2: Does the patient need extra time, require an assistive device (such as glasses for visual comprehensi on or a hearing aid for auditory comprehension) or does s/he have mild difficulty understanding compl ex and abstract information? Yes. COMPREHENSION - SCORE: 6-TRISTEN EXPRESSION EXPRESSION: TYPE: Both EXPRESSION - STEP 1: Does the patient require help from a person or device, or need extra time expressing complex and abst ract ideas (such as current events, finances, discharge planning, medical issues, relationships, etc) ? Yes. EXPRESSION - STEP 2: Does the patient require help to express basic necessities or ideas (such as hunger, thirst, sleep, s afety, daily schedule, room location, or discomfort) half or more of the time? No. EXPRESSION - STEP 3: How often does the patient need help to express directions and conversation about basic needs? 10-24% of the time EXPRESSION - SCORE: 4-MIN SOCIAL INTERACTION: SOCIAL INTERACTION - STEP 1: Does the patient require a helper to interact with others in social and therapeutic situations? No. SOCIAL INTERACTION - STEP 2: Does the patient need extra time in social situations, OR does s/he interact with staff, other patien ts, and family members ONLY in structured environments, OR does s/he require medication for social in teraction? Yes, patient needs extra time SOCIAL INTERACTION - SCORE: 6-TRISTEN PROBLEM SOLVING: PROBLEM SOLVING - STEP 1: Does the patient need help from a person or device, or need extra time to solve complex problems such as managing a checking account or confronting interpersonal problems? Yes. PROBLEM SOLVING - STEP 2: Does the patient solve basic routine problems half or more of the time? Yes. PROBLEM SOLVING - STEP 3: How often does the patient need help to solve basic routine problems? 10%-24% of the time PROBLEM SOLVING - SCORE: 4-MIN MEMORY: MEMORY - STEP 1: Does the patient need help from a person or device, or need extra time to remember frequently encount ered people, daily routines, and executing requests? Yes. MEMORY - STEP 2: How often does the patient need help to remember frequently encountered people, daily routines, and e xecuting requests? Less than 10% of the time MEMORY - SCORE: 5-SUP
[2018-01-04] MEDS: ENOXAPARIN 40 MG/0.4 ML SQ SCH (07:01)
[2018-01-04] MEDS: AMLODIPINE 5 MG TAB PO SCH (08:46)
[2018-01-04] MEDS: ASPIRIN EC 81 MG TAB PO SCH (08:47)
[2018-01-04] MEDS: CLOPIDOGREL 75 MG TABLET PO SCH (08:47)
[2018-01-04] MEDS: FOLIC ACID 1 MG TABLET PO SCH (08:47)
--- NOTE | 2018-01-04 11:39 | FAST ---
SHIFT START DATE/TIME: 01/04/2018 07:00 (MOTOR VEHICLE CLERK) SHIFT END DATE/TIME: 01/04/2018 19:00 (MOTOR VEHICLE CLERK) NAME AMY WOMACK DATE OF : 1935 DATE OF ADMISSION: 12/30/2017 18:22 (MOTOR VEHICLE CLERK) PHONE: AGE: 82 SSN# [id number] ENCOUNTER PHYSICIAN: Dr. Conrado Hunter M.D. 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 EATING: EATING - STEP 1: Does the patient require the assistance of a person or device, or need extra time when eating? Yes. EATING - STEP 2: Does the patient require the assistance of a helper? Yes. EATING - STEP 3: Does the patient perform half or more of the eating tasks? Yes. EATING - STEP 4: Does the patient need only supervision, cuing, coaxing OR help to apply an orthosis OR help to cut fo od, open containers, pour liquids, or butter bread? Yes. EATING - SCORE: 5-SUP GROOMING: Comb/brush hair Oral care GROOMING - STEP 1: Does the patient require the assistance of a person or device, or need extra time when grooming? No. GROOMING - SCORE: 7-IND BATHING: Activity did not occur on this shift BATHING - SCORE: 0-UNK DRESSING - UPPER BODY: Activity did not occur on this shift ARTICLES SCORE Total number of steps: 0 DRESSING - UPPER BODY - SCORE: 0-UNK DRESSING - LOWER BODY: Activity did not occur on this shift ARTICLES SCORE Total number of steps: 0 DRESSING - LOWER BODY - SCORE: 0-UNK TOILETING: TOILETING - STEP 1: Does the patient require the assistance of a person or device, or need extra time with toileting? Yes . TOILETING - STEP 2: Does the patient require the assistance of a helper? Yes. TOILETING - STEP 3: How much assistance does the patient require from the helper? Hands-on assistance from the helper TOILETING - STEP 4: Of the 3 tasks: 1) Adjusting clothing prior to use, 2) Cleansing of perineal area, 3) Adjusting clot elizabeth after use; How many tasks does the patient perform WITHOUT assistance of the helper? Three tasks with steadying assistance from the helper TOILETING - SCORE: 4-MIN BLADDER MANAGEMENT: BLADDER MANAGEMENT - STEP 1: Does the patient control the bladder completely and intentionally without equipment or devices or med ications, and is always continent? No. BLADDER MANAGEMENT - STEP 2: Does the patient require the assistance of a helper? No, patient requires and independently uses an a ssistive device, such as a urinal, bedpan, bedside commode, catheter, absorbent pad, or collecting de vice BLADDER MANAGEMENT - SCORE: 6-TRISTEN BOWEL MANAGEMENT: Activity did not occur on this shift BOWEL MANAGEMENT - SCORE: 7-IND TRANSFERS: BED, CHAIR, WHEELCHAIR: TRANSFERS: BED, CHAIR, WHEELCHAIR - STEP 1: Does the patient require assitance of a person or device, or need extra time with bed, chair, or whee lchair transfers? Yes. TRANSFERS: BED, CHAIR, WHEELCHAIR - STEP 2: Does the patient require the assistance of a helper? Yes. TRANSFERS: BED, CHAIR, WHEELCHAIR - STEP 3: How much assistance does the patient require from the helper? Steadying/guiding assistance TRANSFERS: BED, CHAIR, WHEELCHAIR - SCORE: 4-MIN TRANSFERS: TOILET: TRANSFERS: TOILET - STEP 1: Does the patient require the assistance of a person or device, or need extra time with toilet transfe rs? Yes. TRANSFERS: TOILET - STEP 2: Does the patient require the assistance of a helper? Yes. TRANSFERS: TOILET - STEP 3: How much assistance does the patient require from the helper? Patient performs half or more of the tr ansferring tasks TRANSFERS: TOILET - STEP 4: Does the patient need only incidental help such as contact guard or steadying during toilet transfer? Yes. TRANSFERS: TOILET - SCORE: 4-MIN TRANSFERS: SHOWER: Activity did not occur on this shift TRANSFERS: SHOWER - SCORE: 0-UNK TRANSFERS: TUB: Activity did not occur on this shift TRANSFERS: TUB - SCORE: 0-UNK LOCOMOTION: WALK: Activity did not occur on this shift LOCOMOTION: WALK - SCORE: 0-UNK LOCOMOTION: WHEELCHAIR: Activity did not occur on this shift LOCOMOTION: WHEELCHAIR - SCORE: 0-UNK COMPREHENSION: COMPREHENSION: TYPE: Both COMPREHENSION - STEP 1: Does the patient require help from a person or device, or need extra time to understand complex and a bstract ideas (such as current events, finances, discharge planning, medical issues, relationships, e tc)? No. COMPREHENSION - STEP 2: Does the patient need extra time, require an assistive device (such as glasses for visual comprehensi on or a hearing aid for auditory comprehension) or does s/he have mild difficulty understanding compl ex and abstract information? Yes. COMPREHENSION - SCORE: 6-TRISTEN EXPRESSION EXPRESSION: TYPE: Both EXPRESSION - STEP 1: Does the patient require help from a person or device, or need extra time expressing complex and abst ract ideas (such as current events, finances, discharge planning, medical issues, relationships, etc) ? No. EXPRESSION - STEP 2: Does the patient need extra time, require an assistive device (such as augmentive communication syste m or a communication board), OR does s/he have mild difficulty expressing complex and abstract ideas (including mild dysarthria or mild word-find problems)? Yes. EXPRESSION - SCORE: 6-TRISTEN SOCIAL INTERACTION: SOCIAL INTERACTION - STEP 1: Does the patient require a helper to interact with others in social and therapeutic situations? No. SOCIAL INTERACTION - STEP 2: Does the patient need extra time in social situations, OR does s/he interact with staff, other patien ts, and family members ONLY in structured environments, OR does s/he require medication for social in teraction? Yes, patient needs extra time SOCIAL INTERACTION - SCORE: 6-TRISTEN PROBLEM SOLVING: PROBLEM SOLVING - STEP 1: Does the patient need help from a person or device, or need extra time to solve complex problems such as managing a checking account or confronting interpersonal problems? No. PROBLEM SOLVING - STEP 2: Does the patient require extra time to make decisions or solve problems, OR does s/he have slight dif ficulty reading, initiating, or self-correcting in unfamiliar situations? Yes, patient needs extra ti me. PROBLEM SOLVING - SCORE: 6-TRISTEN MEMORY: MEMORY - STEP 1: Does the patient need help from a person or device, or need extra time to remember frequently encount ered people, daily routines, and executing requests? No. MEMORY - STEP 2: Does the patient have slight difficulty recognizing frequently encountered people, daily routines, or executing requests without the need for repetition or using self-initiated or environmental cues to remember? Yes. MEMORY - SCORE: 6-TRISTEN SIGNATURE PANEL: The following modified sections: Eating - Score, Grooming - Score, Bathing - Score, Dressing - Upper Body - Score, Dressing - Lower Body - Score, Toileting - Score, Bladder Management - Score, Bowel Man agement - Score, Transfers: Bed, Chair, Wheelchair - Score, Transfers: Toilet - Score, Transfers: Zahra wer - Score, Transfers: Tub - Score, Locomotion: Walk - Score, Locomotion: Wheelchair - Score, Compre hension - Score, Expression - Score, Social Interaction - Score, Problem Solving - Score, Memory - Sc ore were [electronically] signed by David Gonzalez on MonJan 04 2018 11:38:34 GMT-0600 (Central Standard Time)
[2018-01-04] MEDS: ATORVASTATIN 40 MG TAB PO SCH (20:37)
[2018-01-04] MEDS: LOSARTAN POTASSIUM 50 MG TABLET PO SCH (20:38)
[2018-01-05] MEDS: ENOXAPARIN 40 MG/0.4 ML SQ SCH (07:23)
[2018-01-05] MEDS: AMLODIPINE 5 MG TAB PO SCH (08:25)
[2018-01-05] MEDS: ASPIRIN EC 81 MG TAB PO SCH (08:25)
[2018-01-05] MEDS: CLOPIDOGREL 75 MG TABLET PO SCH (08:26)
[2018-01-05] MEDS: FOLIC ACID 1 MG TABLET PO SCH (08:26)
--- NOTE | 2018-01-05 12:14 | FAST ---
ENCOUNTER DATE AND TIME: 01/05/2018 08:00 (SUPERVISOR FINAL) NAME AMY WOMACK DATE OF : 1935 DATE OF ADMISSION: 12/30/2017 18:22 (SUPERVISOR FINAL) PHONE: AGE: 82 SSN# [id number] ENCOUNTER PHYSICIAN: Dr. Conrado Hunter M.D. 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 EATING: Activity did not occur on this shift EATING - SCORE: 0-UNK GROOMING: Wash, rinse, and dry face Wash, rinse, and dry hands GROOMING - STEP 1: Does the patient require the assistance of a person or device, or need extra time when grooming? Yes. GROOMING - STEP 2: Does the patient require the assistance of a helper? Yes. GROOMING - STEP 3: How much assistance does the patient require from the helper? Only prior equipment preparation/set up from the helper GROOMING - SCORE: 5-SUP BATHING: Abdomen Buttocks Chest Left arm Left lower leg and foot Left upper leg Perineal area Right arm Right lower leg and foot Right upper leg BATHING - STEP 1: Does the patient require the assistance of a person or device, or need extra time when bathing? Yes. BATHING - STEP 2: Does the patient require the assistance of a helper? Yes. BATHING - STEP 3: How much assistance does the patient require from the helper? Only prior preparation such as putting bathing equipment within reach, turning on water, checking water temperature BATHING - SCORE: 5-SUP DRESSING - UPPER BODY: T-shirt/pullover shirt (four steps) ARTICLES SCORE Total number of steps: 4 DRESSING - UPPER BODY - STEP 1: Does the patient require help from a person or device, or need extra time when dressing above the neno st? Yes. DRESSING - UPPER BODY - STEP 2: Does the patient require the assistance of a helper? Yes. DRESSING - UPPER BODY - STEP 3: Does the helper touch the patient while dressing? No. DRESSING - UPPER BODY - SCORE: 5-SUP DRESSING - LOWER BODY: Elastic waist pants (three steps) Sock - Left foot (one step) Sock - Right foot (one step) ARTICLES SCORE Total number of steps: 5 DRESSING - LOWER BODY - STEP 1: Does the patient require help from a person or device, or need extra time when dressing below the neno st? Yes. DRESSING - LOWER BODY - STEP 2: Does the patient require the assistance of a helper? Yes. DRESSING - LOWER BODY - STEP 3: Does the helper touch the patient while dressing? No. DRESSING - LOWER BODY - SCORE: 5-SUP TOILETING: Activity did not occur on this shift TOILETING - SCORE: 0-UNK BLADDER MANAGEMENT: Activity did not occur on this shift BLADDER MANAGEMENT - SCORE: 7-IND BOWEL MANAGEMENT: Activity did not occur on this shift BOWEL MANAGEMENT - SCORE: 7-IND TRANSFERS: BED, CHAIR, WHEELCHAIR: Activity did not occur on this shift TRANSFERS: BED, CHAIR, WHEELCHAIR - SCORE: 0-UNK TRANSFERS: TOILET: Activity did not occur on this shift TRANSFERS: TOILET - SCORE: 0-UNK TRANSFERS: SHOWER: TRANSFERS: SHOWER - STEP 1: Does the patient require the assistance of a person or device, or need extra time with shower transfe rs? Yes. TRANSFERS: SHOWER - STEP 2: Does the patient require the assistance of a helper? Yes. TRANSFERS: SHOWER - STEP 3: How much assistance does the patient require from the helper? Only supervision, cuing, coaxing, or he lp to set out transfer equipment or to lock brakes and/or lift foot rests TRANSFERS: SHOWER - SCORE: 5-SUP TRANSFERS: TUB: Activity did not occur on this shift TRANSFERS: TUB - SCORE: 0-UNK LOCOMOTION: WALK: Activity did not occur on this shift LOCOMOTION: WALK - SCORE: 0-UNK LOCOMOTION: WHEELCHAIR: Activity did not occur on this shift LOCOMOTION: WHEELCHAIR - SCORE: 0-UNK LOCOMOTION: STAIRS: Activity did not occur on this shift LOCOMOTION: STAIRS - SCORE: 0-UNK COMPREHENSION: COMPREHENSION - SCORE: 0-UNK EXPRESSION EXPRESSION - SCORE: 0-UNK SOCIAL INTERACTION: SOCIAL INTERACTION - SCORE: 0-UNK PROBLEM SOLVING: PROBLEM SOLVING - SCORE: 0-UNK MEMORY: MEMORY - SCORE: 0-UNK SIGNATURE PANEL: The following modified sections: Eating - Score, Grooming - Score, Bathing - Score, Dressing - Upper Body - Score, Dressing - Lower Body - Score, Toileting - Score, Transfers: Bed, Chair, Wheelchair - S core, Transfers: Toilet - Score, Transfers: Shower - Score, Transfers: Tub - Score, Comprehension - S core, Expression - Score, Social Interaction - Score, Problem Solving - Score, Memory - Score were [e lectronically] signed by SORIN Calix on MonJan 05 2018 12:13:16 T-0600 ([place] Time)
--- NOTE | 2018-01-05 14:28 | FAST ---
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 Conrado Hunter M.D. 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 EATING: Activity did not occur on this shift EATING - SCORE: 0-UNK GROOMING: Activity did not occur on this shift GROOMING - SCORE: 0-UNK BATHING: Activity did not occur on this shift BATHING - SCORE: 0-UNK DRESSING - UPPER BODY: Activity did not occur on this shift Patient is not dressing in public clothing ARTICLES SCORE Total number of steps: 0 DRESSING - UPPER BODY - SCORE: 0-UNK DRESSING - LOWER BODY: Activity did not occur on this shift Patient is not dressing in public clothing ARTICLES SCORE Total number of steps: 0 DRESSING - LOWER BODY - SCORE: 0-UNK TOILETING: Activity did not occur on this shift TOILETING - SCORE: 0-UNK BLADDER MANAGEMENT: Activity did not occur on this shift BLADDER MANAGEMENT - SCORE: 7-IND BOWEL MANAGEMENT: Activity did not occur on this shift BOWEL MANAGEMENT - SCORE: 7-IND TRANSFERS: BED, CHAIR, WHEELCHAIR: TRANSFERS: BED, CHAIR, WHEELCHAIR - STEP 1: Does the patient require assitance of a person or device, or need extra time with bed, chair, or whee lchair transfers? Yes. TRANSFERS: BED, CHAIR, WHEELCHAIR - STEP 2: Does the patient require the assistance of a helper? Yes. TRANSFERS: BED, CHAIR, WHEELCHAIR - STEP 3: How much assistance does the patient require from the helper? Only supervision TRANSFERS: BED, CHAIR, WHEELCHAIR - SCORE: 5-SUP TRANSFERS: TOILET: Activity did not occur on this shift TRANSFERS: TOILET - SCORE: 0-UNK TRANSFERS: SHOWER: Activity did not occur on this shift TRANSFERS: SHOWER - SCORE: 0-UNK TRANSFERS: TUB: Activity did not occur on this shift TRANSFERS: TUB - SCORE: 0-UNK LOCOMOTION: WALK: LOCOMOTION: WALK - STEP 1: Does the patient need help from a person or device, or need extra time to walk 150 feet? Yes. LOCOMOTION: WALK - STEP 2: How much assistance does the patient require to walk a minimum of 150 feet? Only supervision, cuing, or coaxing LOCOMOTION: WALK - SCORE: 5-SUP LOCOMOTION: WHEELCHAIR: LOCOMOTION: WHEELCHAIR - STEP 1: Does the patient need help to go 150 feet in a wheelchair? Yes. LOCOMOTION: WHEELCHAIR - STEP 2: How much assistance does the patient need from the helper? Only incidental help such as around corner s or over thresholds LOCOMOTION: WHEELCHAIR - SCORE: 4-MIN LOCOMOTION: STAIRS: LOCOMOTION: STAIRS - STEP 1: Does the patient need help to go up and down 12 to 14 stairs? Yes. LOCOMOTION: STAIRS - STEP 2: How much assistance does the patient need from the helper to go a minimum of 12 to 14 stairs? Only [place] pervision, cuing, or coaxing LOCOMOTION: STAIRS - SCORE: 5-SUP COMPREHENSION: COMPREHENSION - SCORE: 0-UNK EXPRESSION EXPRESSION - SCORE: 0-UNK SOCIAL INTERACTION: SOCIAL INTERACTION - SCORE: 0-UNK PROBLEM SOLVING: PROBLEM SOLVING - SCORE: 0-UNK MEMORY: MEMORY - SCORE: 0-UNK SIGNATURE PANEL: The following modified sections: Transfers: Bed, Chair, Wheelchair - Score, Transfers: Toilet - Score , Locomotion: Walk - Score, Locomotion: Wheelchair - Score, Locomotion: Stairs - Score were [von franks] signed by Arturo Yeboah PTA on MonJan 05 2018 14:27:18 GMT-0600 (Central Standard Time)
[2018-01-05] MEDS: ORAGEL TOP SCH ×2 (16:26→20:43)
[2018-01-05] MEDS: LOSARTAN POTASSIUM 50 MG TABLET PO SCH (20:42)
[2018-01-05] MEDS: ATORVASTATIN 40 MG TAB PO SCH (20:42)
--- NOTE | 2018-01-06 02:53 | FAST ---
SHIFT START DATE/TIME: 01/05/2018 19:00 (HOUSE COORDINATOR) SHIFT END DATE/TIME: 01/06/2018 07:00 (HOUSE COORDINATOR) NAME AMY WOMACK DATE OF : 1935 DATE OF ADMISSION: 12/30/2017 18:22 (HOUSE COORDINATOR) PHONE: AGE: 82 SSN# [id number] ENCOUNTER PHYSICIAN: Dr. Conrado Hunter M.D. 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 EATING: Activity did not occur on this shift EATING - SCORE: 0-UNK GROOMING: Oral care Wash, rinse, and dry face Wash, rinse, and dry hands GROOMING - STEP 1: Does the patient require the assistance of a person or device, or need extra time when grooming? Yes. GROOMING - STEP 2: Does the patient require the assistance of a helper? Yes. GROOMING - STEP 3: How much assistance does the patient require from the helper? Only prior equipment preparation/set up from the helper GROOMING - SCORE: 5-SUP BATHING: Activity did not occur on this shift BATHING - SCORE: 0-UNK DRESSING - UPPER BODY: Patient is not dressing in public clothing ARTICLES SCORE Total number of steps: 0 DRESSING - UPPER BODY - SCORE: 0-UNK DRESSING - LOWER BODY: Patient is not dressing in public clothing ARTICLES SCORE Total number of steps: 0 DRESSING - LOWER BODY - SCORE: 0-UNK TOILETING: Activity did not occur on this shift TOILETING - SCORE: 0-UNK BLADDER MANAGEMENT: [place] removes incontinent device (Depends, pull ups, etc.); cleans the patient after accident / inco ntinent episode; and, applies new incontinent device. BLADDER MANAGEMENT - SCORE: 1-DEP BOWEL MANAGEMENT: Activity did not occur on this shift BOWEL MANAGEMENT - SCORE: 7-IND TRANSFERS: BED, CHAIR, WHEELCHAIR: Activity did not occur on this shift TRANSFERS: BED, CHAIR, WHEELCHAIR - SCORE: 0-UNK TRANSFERS: TOILET: Activity did not occur on this shift TRANSFERS: TOILET - SCORE: 0-UNK TRANSFERS: SHOWER: Activity did not occur on this shift TRANSFERS: SHOWER - SCORE: 0-UNK TRANSFERS: TUB: Activity did not occur on this shift TRANSFERS: TUB - SCORE: 0-UNK LOCOMOTION: WALK: Activity did not occur on this shift LOCOMOTION: WALK - SCORE: 0-UNK LOCOMOTION: WHEELCHAIR: Activity did not occur on this shift LOCOMOTION: WHEELCHAIR - SCORE: 0-UNK COMPREHENSION: COMPREHENSION: TYPE: Both COMPREHENSION - STEP 1: Does the patient require help from a person or device, or need extra time to understand complex and a bstract ideas (such as current events, finances, discharge planning, medical issues, relationships, e tc)? No. COMPREHENSION - STEP 2: Does the patient need extra time, require an assistive device (such as glasses for visual comprehensi on or a hearing aid for auditory comprehension) or does s/he have mild difficulty understanding compl ex and abstract information? Yes. COMPREHENSION - SCORE: 6-TRISTEN EXPRESSION EXPRESSION: TYPE: Both Patient requires the use of an clinical support manager EXPRESSION - STEP 1: Does the patient require help from a person or device, or need extra time expressing complex and abst ract ideas (such as current events, finances, discharge planning, medical issues, relationships, etc) ? Yes. EXPRESSION - STEP 2: Does the patient require help to express basic necessities or ideas (such as hunger, thirst, sleep, s afety, daily schedule, room location, or discomfort) half or more of the time? No. EXPRESSION - STEP 3: How often does the patient need help to express directions and conversation about basic needs? 10-24% of the time EXPRESSION - SCORE: 4-MIN SOCIAL INTERACTION: SOCIAL INTERACTION - STEP 1: Does the patient require a helper to interact with others in social and therapeutic situations? No. SOCIAL INTERACTION - STEP 2: Does the patient need extra time in social situations, OR does s/he interact with staff, other patien ts, and family members ONLY in structured environments, OR does s/he require medication for social in teraction? Yes, patient needs extra time SOCIAL INTERACTION - SCORE: 6-TRISTEN PROBLEM SOLVING: PROBLEM SOLVING - STEP 1: Does the patient need help from a person or device, or need extra time to solve complex problems such as managing a checking account or confronting interpersonal problems? Yes. PROBLEM SOLVING - STEP 2: Does the patient solve basic routine problems half or more of the time? Yes. PROBLEM SOLVING - STEP 3: How often does the patient need help to solve basic routine problems? 10%-24% of the time PROBLEM SOLVING - SCORE: 4-MIN MEMORY: MEMORY - STEP 1: Does the patient need help from a person or device, or need extra time to remember frequently encount ered people, daily routines, and executing requests? Yes. MEMORY - STEP 2: How often does the patient need help to remember frequently encountered people, daily routines, and e xecuting requests? Less than 10% of the time MEMORY - SCORE: 5-SUP
[2018-01-06] MEDS: ENOXAPARIN 40 MG/0.4 ML SQ SCH (07:08)
[2018-01-06] MEDS: AMLODIPINE 5 MG TAB PO SCH (08:23)
[2018-01-06] MEDS: CLOPIDOGREL 75 MG TABLET PO SCH (08:24)
[2018-01-06] MEDS: ASPIRIN EC 81 MG TAB PO SCH (08:24)
[2018-01-06] MEDS: FOLIC ACID 1 MG TABLET PO SCH (08:24)
[2018-01-06] MEDS: ORAGEL TOP SCH (09:00)
[2018-01-06] MEDS ORDERED: ORAGEL TOP PRN (10:00)
--- NOTE | 2018-01-06 15:02 | FAST ---
SHIFT START DATE/TIME: 01/06/2018 07:00 (LEGAL BILLING ANALYST) SHIFT END DATE/TIME: 01/06/2018 19:00 (LEGAL BILLING ANALYST) NAME AMY WOMACK DATE OF : 1935 DATE OF ADMISSION: 12/30/2017 18:22 (LEGAL BILLING ANALYST) PHONE: AGE: 82 SSN# [id number] ENCOUNTER PHYSICIAN: Dr. Conrado Hunter M.D. 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 EATING: EATING - STEP 1: Does the patient require the assistance of a person or device, or need extra time when eating? Yes. EATING - STEP 2: Does the patient require the assistance of a helper? Yes. EATING - STEP 3: Does the patient perform half or more of the eating tasks? Yes. EATING - STEP 4: Does the patient need only supervision, cuing, coaxing OR help to apply an orthosis OR help to cut fo od, open containers, pour liquids, or butter bread? Yes. EATING - SCORE: 5-SUP GROOMING: Activity did not occur on this shift GROOMING - SCORE: 0-UNK BATHING: Activity did not occur on this shift BATHING - SCORE: 0-UNK DRESSING - UPPER BODY: Activity did not occur on this shift ARTICLES SCORE Total number of steps: 0 DRESSING - UPPER BODY - SCORE: 0-UNK DRESSING - LOWER BODY: Activity did not occur on this shift ARTICLES SCORE Total number of steps: 0 DRESSING - LOWER BODY - SCORE: 0-UNK TOILETING: TOILETING - STEP 1: Does the patient require the assistance of a person or device, or need extra time with toileting? Yes . TOILETING - STEP 2: Does the patient require the assistance of a helper? Yes. TOILETING - STEP 3: How much assistance does the patient require from the helper? Hands-on assistance from the helper TOILETING - STEP 4: Of the 3 tasks: 1) Adjusting clothing prior to use, 2) Cleansing of perineal area, 3) Adjusting clot elizabeth after use; How many tasks does the patient perform WITHOUT assistance of the helper? Three tasks with steadying assistance from the helper TOILETING - SCORE: 4-MIN BLADDER MANAGEMENT: BLADDER MANAGEMENT - STEP 1: Does the patient control the bladder completely and intentionally without equipment or devices or med ications, and is always continent? No. BLADDER MANAGEMENT - STEP 2: Does the patient require the assistance of a helper? No, patient only requires extra time BLADDER MANAGEMENT - SCORE: 6-TRISTEN BLADDER MANAGEMENT - FREQUENCY OF ACCIDENTS: BLADDER MANAGEMENT(FA) - STEP 1: How many accidents has the patient had during the current shift? 0 BOWEL MANAGEMENT: Activity did not occur on this shift BOWEL MANAGEMENT - SCORE: 7-IND BOWEL MANAGEMENT - FREQUENCY OF ACCIDENTS: BOWEL MANAGEMENT(FA) - STEP 1: How many accidents has the patient had during the current shift? 0 TRANSFERS: BED, CHAIR, WHEELCHAIR: TRANSFERS: BED, CHAIR, WHEELCHAIR - STEP 1: Does the patient require assitance of a person or device, or need extra time with bed, chair, or whee lchair transfers? Yes. TRANSFERS: BED, CHAIR, WHEELCHAIR - STEP 2: Does the patient require the assistance of a helper? Yes. TRANSFERS: BED, CHAIR, WHEELCHAIR - STEP 3: How much assistance does the patient require from the helper? Steadying/guiding assistance TRANSFERS: BED, CHAIR, WHEELCHAIR - SCORE: 4-MIN TRANSFERS: TOILET: TRANSFERS: TOILET - STEP 1: Does the patient require the assistance of a person or device, or need extra time with toilet transfe rs? Yes. TRANSFERS: TOILET - STEP 2: Does the patient require the assistance of a helper? Yes. TRANSFERS: TOILET - STEP 3: How much assistance does the patient require from the helper? Patient performs half or more of the tr ansferring tasks TRANSFERS: TOILET - STEP 4: Does the patient need only incidental help such as contact guard or steadying during toilet transfer? Yes. TRANSFERS: TOILET - SCORE: 4-MIN TRANSFERS: SHOWER: Activity did not occur on this shift TRANSFERS: SHOWER - SCORE: 0-UNK TRANSFERS: TUB: Activity did not occur on this shift TRANSFERS: TUB - SCORE: 0-UNK LOCOMOTION: WALK: Activity did not occur on this shift LOCOMOTION: WALK - SCORE: 0-UNK LOCOMOTION: WHEELCHAIR: Activity did not occur on this shift LOCOMOTION: WHEELCHAIR - SCORE: 0-UNK COMPREHENSION: COMPREHENSION: TYPE: Both COMPREHENSION - STEP 1: Does the patient require help from a person or device, or need extra time to understand complex and a bstract ideas (such as current events, finances, discharge planning, medical issues, relationships, e tc)? No. COMPREHENSION - STEP 2: Does the patient need extra time, require an assistive device (such as glasses for visual comprehensi on or a hearing aid for auditory comprehension) or does s/he have mild difficulty understanding compl ex and abstract information? Yes. COMPREHENSION - SCORE: 6-TRISTEN EXPRESSION EXPRESSION: TYPE: Both EXPRESSION - STEP 1: Does the patient require help from a person or device, or need extra time expressing complex and abst ract ideas (such as current events, finances, discharge planning, medical issues, relationships, etc) ? No. EXPRESSION - STEP 2: Does the patient need extra time, require an assistive device (such as augmentive communication syste m or a communication board), OR does s/he have mild difficulty expressing complex and abstract ideas (including mild dysarthria or mild word-find problems)? No. EXPRESSION - SCORE: 7-IND SOCIAL INTERACTION: SOCIAL INTERACTION - STEP 1: Does the patient require a helper to interact with others in social and therapeutic situations? No. SOCIAL INTERACTION - STEP 2: Does the patient need extra time in social situations, OR does s/he interact with staff, other patien ts, and family members ONLY in structured environments, OR does s/he require medication for social in teraction? Yes, patient needs extra time SOCIAL INTERACTION - SCORE: 6-TRISTEN PROBLEM SOLVING: PROBLEM SOLVING - STEP 1: Does the patient need help from a person or device, or need extra time to solve complex problems such as managing a checking account or confronting interpersonal problems? No. PROBLEM SOLVING - STEP 2: Does the patient require extra time to make decisions or solve problems, OR does s/he have slight dif ficulty reading, initiating, or self-correcting in unfamiliar situations? Yes, patient needs extra ti me. PROBLEM SOLVING - SCORE: 6-TRISTEN MEMORY: MEMORY - STEP 1: Does the patient need help from a person or device, or need extra time to remember frequently encount ered people, daily routines, and executing requests? No. MEMORY - STEP 2: Does the patient have slight difficulty recognizing frequently encountered people, daily routines, or executing requests without the need for repetition or using self-initiated or environmental cues to remember? Yes. MEMORY - SCORE: 6-TRISTEN SIGNATURE PANEL: The following modified sections: Eating - Score, Grooming - Score, Bathing - Score, Dressing - Upper Body - Score, Dressing - Lower Body - Score, Toileting - Score, Bladder Management - Score, Bowel Man agement - Score, Transfers: Bed, Chair, Wheelchair - Score, Transfers: Toilet - Score, Transfers: Zahra wer - Score, Transfers: Tub - Score, Locomotion: Walk - Score, Locomotion: Wheelchair - Score, Compre hension - Score, Expression - Score, Social Interaction - Score, Problem Solving - Score, Memory - Sc ore were [electronically] signed by Rosenda StallingsN.Arianne on Sat Jan 06 2018 15:01:29 GMT-0600 ([facility] Standard Time)
[2018-01-06] MEDS: LOSARTAN POTASSIUM 50 MG TABLET PO SCH (20:22)
[2018-01-06] MEDS: ATORVASTATIN 40 MG TAB PO SCH (20:23)
[2018-01-07] MEDS: AMLODIPINE 5 MG TAB PO SCH (08:32)
[2018-01-07] MEDS: ENOXAPARIN 40 MG/0.4 ML SQ SCH (08:32)
[2018-01-07] MEDS: ASPIRIN EC 81 MG TAB PO SCH (08:33)
[2018-01-07] MEDS: CLOPIDOGREL 75 MG TABLET PO SCH (08:33)
[2018-01-07] MEDS: FOLIC ACID 1 MG TABLET PO SCH (08:33)
[2018-01-07] MEDS ORDERED: ONDANSETRON 4 MG (ODT) TAB PO PRN (13:56)
--- NOTE | 2018-01-07 14:28 | FAST ---
SHIFT START DATE/TIME: 01/07/2018 07:00 (SALES OFFICE ASSISTANT) SHIFT END DATE/TIME: 01/07/2018 19:00 (SALES OFFICE ASSISTANT) NAME AMY WOMACK DATE OF : 1935 DATE OF ADMISSION: 12/30/2017 18:22 (SALES OFFICE ASSISTANT) PHONE: AGE: 82 SSN# [id number] ENCOUNTER PHYSICIAN: Dr. Conrado Hunter M.D. 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 EATING: EATING - STEP 1: Does the patient require the assistance of a person or device, or need extra time when eating? Yes. EATING - STEP 2: Does the patient require the assistance of a helper? Yes. EATING - STEP 3: Does the patient perform half or more of the eating tasks? Yes. EATING - STEP 4: Does the patient need only supervision, cuing, coaxing OR help to apply an orthosis OR help to cut fo od, open containers, pour liquids, or butter bread? Yes. EATING - SCORE: 5-SUP GROOMING: GROOMING - STEP 1: Does the patient require the assistance of a person or device, or need extra time when grooming? No. GROOMING - SCORE: 7-IND BATHING: Activity did not occur on this shift BATHING - SCORE: 0-UNK DRESSING - UPPER BODY: Activity did not occur on this shift ARTICLES SCORE Total number of steps: 0 DRESSING - UPPER BODY - SCORE: 0-UNK DRESSING - LOWER BODY: Activity did not occur on this shift ARTICLES SCORE Total number of steps: 0 DRESSING - LOWER BODY - SCORE: 0-UNK TOILETING: TOILETING - STEP 1: Does the patient require the assistance of a person or device, or need extra time with toileting? Yes . TOILETING - STEP 2: Does the patient require the assistance of a helper? Yes. TOILETING - STEP 3: How much assistance does the patient require from the helper? Hands-on assistance from the helper TOILETING - STEP 4: Of the 3 tasks: 1) Adjusting clothing prior to use, 2) Cleansing of perineal area, 3) Adjusting clot elizabeth after use; How many tasks does the patient perform WITHOUT assistance of the helper? Three tasks with steadying assistance from the helper TOILETING - SCORE: 4-MIN BLADDER MANAGEMENT: BLADDER MANAGEMENT - STEP 1: Does the patient control the bladder completely and intentionally without equipment or devices or med ications, and is always continent? No. BLADDER MANAGEMENT - STEP 2: Does the patient require the assistance of a helper? No, patient only requires extra time BLADDER MANAGEMENT - SCORE: 6-TRISTEN BLADDER MANAGEMENT - FREQUENCY OF ACCIDENTS: BLADDER MANAGEMENT(FA) - STEP 1: How many accidents has the patient had during the current shift? 0 BOWEL MANAGEMENT: Activity did not occur on this shift BOWEL MANAGEMENT - SCORE: 7-IND BOWEL MANAGEMENT - FREQUENCY OF ACCIDENTS: BOWEL MANAGEMENT(FA) - STEP 1: How many accidents has the patient had during the current shift? 0 TRANSFERS: BED, CHAIR, WHEELCHAIR: TRANSFERS: BED, CHAIR, WHEELCHAIR - STEP 1: Does the patient require assitance of a person or device, or need extra time with bed, chair, or whee lchair transfers? Yes. TRANSFERS: BED, CHAIR, WHEELCHAIR - STEP 2: Does the patient require the assistance of a helper? Yes. TRANSFERS: BED, CHAIR, WHEELCHAIR - STEP 3: How much assistance does the patient require from the helper? Steadying/guiding assistance TRANSFERS: BED, CHAIR, WHEELCHAIR - SCORE: 4-MIN TRANSFERS: TOILET: TRANSFERS: TOILET - STEP 1: Does the patient require the assistance of a person or device, or need extra time with toilet transfe rs? Yes. TRANSFERS: TOILET - STEP 2: Does the patient require the assistance of a helper? Yes. TRANSFERS: TOILET - STEP 3: How much assistance does the patient require from the helper? Patient performs half or more of the tr ansferring tasks TRANSFERS: TOILET - STEP 4: Does the patient need only incidental help such as contact guard or steadying during toilet transfer? Yes. TRANSFERS: TOILET - SCORE: 4-MIN TRANSFERS: SHOWER: Activity did not occur on this shift TRANSFERS: SHOWER - SCORE: 0-UNK TRANSFERS: TUB: Activity did not occur on this shift TRANSFERS: TUB - SCORE: 0-UNK LOCOMOTION: WALK: Activity did not occur on this shift LOCOMOTION: WALK - SCORE: 0-UNK LOCOMOTION: WHEELCHAIR: Activity did not occur on this shift LOCOMOTION: WHEELCHAIR - SCORE: 0-UNK COMPREHENSION: COMPREHENSION: TYPE: Both COMPREHENSION - STEP 1: Does the patient require help from a person or device, or need extra time to understand complex and a bstract ideas (such as current events, finances, discharge planning, medical issues, relationships, e tc)? Yes. COMPREHENSION - STEP 2: Does the patient require help to understand questions or statements about basic needs or ideas (such as hunger, thirst, sleep, safety, daily schedule, room location, or discomfort) half or more of the t clementina? No. COMPREHENSION - STEP 3: How often does the patient need help to understand directions and conversation about basic needs? Les s than 10% of the time COMPREHENSION - SCORE: 5-SUP EXPRESSION EXPRESSION: TYPE: Both EXPRESSION - STEP 1: Does the patient require help from a person or device, or need extra time expressing complex and abst ract ideas (such as current events, finances, discharge planning, medical issues, relationships, etc) ? No. EXPRESSION - STEP 2: Does the patient need extra time, require an assistive device (such as augmentive communication syste m or a communication board), OR does s/he have mild difficulty expressing complex and abstract ideas (including mild dysarthria or mild word-find problems)? No. EXPRESSION - SCORE: 7-IND SOCIAL INTERACTION: SOCIAL INTERACTION - STEP 1: Does the patient require a helper to interact with others in social and therapeutic situations? No. SOCIAL INTERACTION - STEP 2: Does the patient need extra time in social situations, OR does s/he interact with staff, other patien ts, and family members ONLY in structured environments, OR does s/he require medication for social in teraction? Yes, patient needs extra time SOCIAL INTERACTION - SCORE: 6-TRISTEN PROBLEM SOLVING: PROBLEM SOLVING - STEP 1: Does the patient need help from a person or device, or need extra time to solve complex problems such as managing a checking account or confronting interpersonal problems? No. PROBLEM SOLVING - STEP 2: Does the patient require extra time to make decisions or solve problems, OR does s/he have slight dif ficulty reading, initiating, or self-correcting in unfamiliar situations? Yes, patient needs extra ti me. PROBLEM SOLVING - SCORE: 6-TRISTEN MEMORY: MEMORY - STEP 1: Does the patient need help from a person or device, or need extra time to remember frequently encount ered people, daily routines, and executing requests? No. MEMORY - STEP 2: Does the patient have slight difficulty recognizing frequently encountered people, daily routines, or executing requests without the need for repetition or using self-initiated or environmental cues to remember? Yes. MEMORY - SCORE: 6-TRISETN SIGNATURE PANEL: The following modified sections: Eating - Score, Grooming - Score, Bathing - Score, Dressing - Upper Body - Score, Dressing - Lower Body - Score, Toileting - Score, Bladder Management - Score, Bowel Man agement - Score, Transfers: Bed, Chair, Wheelchair - Score, Transfers: Toilet - Score, Transfers: Zahra wer - Score, Transfers: Tub - Score, Locomotion: Walk - Score, Locomotion: Wheelchair - Score, Compre hension - Score, Expression - Score, Social Interaction - Score, Problem Solving - Score, Memory - Sc ore were [electronically] signed by Ely Verma C.N.A. on MonJan 07 2018 14:27:53 GMT-0600 ([facility] Standard Time)
[2018-01-07] MEDS: LOSARTAN POTASSIUM 50 MG TABLET PO SCH (20:29)
[2018-01-07] MEDS: ATORVASTATIN 40 MG TAB PO SCH (20:29)
--- NOTE | 2018-01-08 01:32 | FAST ---
SHIFT START DATE/TIME: 01/07/2018 19:00 (HEALTHCARE RISK CONTROL CONSULTANT) SHIFT END DATE/TIME: 01/08/2018 07:00 (HEALTHCARE RISK CONTROL CONSULTANT) NAME AMY WOMACK DATE OF : 1935 DATE OF ADMISSION: 12/30/2017 18:22 (HEALTHCARE RISK CONTROL CONSULTANT) PHONE: AGE: 82 SSN# [id number] ENCOUNTER PHYSICIAN: Dr. Conrado Hunter M.D. 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 EATING: Activity did not occur on this shift EATING - SCORE: 0-UNK GROOMING: Wash, rinse, and dry hands GROOMING - STEP 1: Does the patient require the assistance of a person or device, or need extra time when grooming? Yes. GROOMING - STEP 2: Does the patient require the assistance of a helper? Yes. GROOMING - STEP 3: How much assistance does the patient require from the helper? Only prior equipment preparation/set up from the helper GROOMING - SCORE: 5-SUP BATHING: Activity did not occur on this shift BATHING - SCORE: 0-UNK DRESSING - UPPER BODY: Patient is not dressing in public clothing ARTICLES SCORE Total number of steps: 0 DRESSING - UPPER BODY - SCORE: 0-UNK DRESSING - LOWER BODY: Patient is not dressing in public clothing ARTICLES SCORE Total number of steps: 0 DRESSING - LOWER BODY - SCORE: 0-UNK TOILETING: TOILETING - STEP 1: Does the patient require the assistance of a person or device, or need extra time with toileting? Yes . TOILETING - STEP 2: Does the patient require the assistance of a helper? Yes. TOILETING - STEP 3: How much assistance does the patient require from the helper? Hands-on assistance from the helper TOILETING - STEP 4: Of the 3 tasks: 1) Adjusting clothing prior to use, 2) Cleansing of perineal area, 3) Adjusting clot elizabeth after use; How many tasks does the patient perform WITHOUT assistance of the helper? Two tasks TOILETING - SCORE: 3-MOD BLADDER MANAGEMENT: [place] removes incontinent device (Depends, pull ups, etc.); cleans the patient after accident / inco ntinent episode; and, applies new incontinent device. BLADDER MANAGEMENT - SCORE: 1-DEP BOWEL MANAGEMENT: Activity did not occur on this shift BOWEL MANAGEMENT - SCORE: 7-IND TRANSFERS: BED, CHAIR, WHEELCHAIR: TRANSFERS: BED, CHAIR, WHEELCHAIR - STEP 1: Does the patient require assitance of a person or device, or need extra time with bed, chair, or whee lchair transfers? Yes. TRANSFERS: BED, CHAIR, WHEELCHAIR - STEP 2: Does the patient require the assistance of a helper? Yes. TRANSFERS: BED, CHAIR, WHEELCHAIR - STEP 3: How much assistance does the patient require from the helper? Lifting of the legs TRANSFERS: BED, CHAIR, WHEELCHAIR - STEP 4: How many legs does the patient require the helper to lift? both legs TRANSFERS: BED, CHAIR, WHEELCHAIR - SCORE: 3-MOD TRANSFERS: TOILET: Activity did not occur on this shift TRANSFERS: TOILET - SCORE: 0-UNK TRANSFERS: SHOWER: Activity did not occur on this shift TRANSFERS: SHOWER - SCORE: 0-UNK TRANSFERS: TUB: Activity did not occur on this shift TRANSFERS: TUB - SCORE: 0-UNK LOCOMOTION: WALK: Activity did not occur on this shift LOCOMOTION: WALK - SCORE: 0-UNK LOCOMOTION: WHEELCHAIR: Activity did not occur on this shift LOCOMOTION: WHEELCHAIR - SCORE: 0-UNK COMPREHENSION: COMPREHENSION: TYPE: Both COMPREHENSION - STEP 1: Does the patient require help from a person or device, or need extra time to understand complex and a bstract ideas (such as current events, finances, discharge planning, medical issues, relationships, e tc)? Yes. COMPREHENSION - STEP 2: Does the patient require help to understand questions or statements about basic needs or ideas (such as hunger, thirst, sleep, safety, daily schedule, room location, or discomfort) half or more of the t clementina? No. COMPREHENSION - STEP 3: How often does the patient need help to understand directions and conversation about basic needs? 10% - 24% of the time COMPREHENSION - SCORE: 4-MIN EXPRESSION EXPRESSION: TYPE: Both Patient requires the use of an java engineer EXPRESSION - STEP 1: Does the patient require help from a person or device, or need extra time expressing complex and abst ract ideas (such as current events, finances, discharge planning, medical issues, relationships, etc) ? No. EXPRESSION - STEP 2: Does the patient need extra time, require an assistive device (such as augmentive communication syste m or a communication board), OR does s/he have mild difficulty expressing complex and abstract ideas (including mild dysarthria or mild word-find problems)? Yes. EXPRESSION - SCORE: 6-TRISTEN SOCIAL INTERACTION: SOCIAL INTERACTION - STEP 1: Does the patient require a helper to interact with others in social and therapeutic situations? No. SOCIAL INTERACTION - STEP 2: Does the patient need extra time in social situations, OR does s/he interact with staff, other patien ts, and family members ONLY in structured environments, OR does s/he require medication for social in teraction? Yes, patient needs extra time SOCIAL INTERACTION - SCORE: 6-TRISTEN PROBLEM SOLVING: PROBLEM SOLVING - STEP 1: Does the patient need help from a person or device, or need extra time to solve complex problems such as managing a checking account or confronting interpersonal problems? Yes. PROBLEM SOLVING - STEP 2: Does the patient solve basic routine problems half or more of the time? Yes. PROBLEM SOLVING - STEP 3: How often does the patient need help to solve basic routine problems? 10%-24% of the time PROBLEM SOLVING - SCORE: 4-MIN MEMORY: MEMORY - STEP 1: Does the patient need help from a person or device, or need extra time to remember frequently encount ered people, daily routines, and executing requests? No. MEMORY - STEP 2: Does the patient have slight difficulty recognizing frequently encountered people, daily routines, or executing requests without the need for repetition or using self-initiated or environmental cues to remember? Yes. MEMORY - SCORE: 6-TRISTEN SIGNATURE PANEL: The following modified sections: Eating - Score, Grooming - Score, Dressing - Upper Body - Score, [place] ssing - Lower Body - Score, Toileting - Score, Bladder Management - Score, Bowel Management - Score, Transfers: Bed, Chair, Wheelchair - Score, Transfers: Toilet - Score, Transfers: Shower - Score, [place] sfers: Tub - Score, Locomotion: Walk - Score, Locomotion: Wheelchair - Score, Comprehension - Score, Expression - Score, Social Interaction - Score, Problem Solving - Score, Memory - Score were [electro nically] signed by Noreen Jiang CNA on MonJan 08 2018 01:31:35 GMT-0600 (Central Standard Time)
[2018-01-08] MEDS: AMLODIPINE 5 MG TAB PO SCH (08:12)
[2018-01-08] MEDS: ENOXAPARIN 40 MG/0.4 ML SQ SCH (08:12)
[2018-01-08] MEDS: ASPIRIN EC 81 MG TAB PO SCH (08:13)
[2018-01-08] MEDS: CLOPIDOGREL 75 MG TABLET PO SCH (08:13)
[2018-01-08] MEDS: FOLIC ACID 1 MG TABLET PO SCH (08:13)
--- NOTE | 2018-01-08 15:57 | FAST ---
SHIFT START DATE/TIME: 01/08/2018 07:00 (PRIVATE HOUSEHOLD WORKER) SHIFT END DATE/TIME: 01/08/2018 19:00 (PRIVATE HOUSEHOLD WORKER) NAME AMY WOMACK DATE OF : 1935 DATE OF ADMISSION: 12/30/2017 18:22 (PRIVATE HOUSEHOLD WORKER) PHONE: AGE: 82 SSN# [id number] ENCOUNTER PHYSICIAN: Dr. Conrado Hunter M.D. 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 EATING: EATING - STEP 1: Does the patient require the assistance of a person or device, or need extra time when eating? Yes. EATING - STEP 2: Does the patient require the assistance of a helper? No, patient only requires an assistive device, O R s/he takes more than reasonable time to eat, OR there is a safety concern, OR s/he requires modifie d food consistency EATING - SCORE: 6-TRISTEN GROOMING: Comb/brush hair Oral care GROOMING - STEP 1: Does the patient require the assistance of a person or device, or need extra time when grooming? Yes. GROOMING - STEP 2: Does the patient require the assistance of a helper? Yes. GROOMING - STEP 3: How much assistance does the patient require from the helper? Only prior equipment preparation/set up from the helper GROOMING - SCORE: 5-SUP BATHING: Activity did not occur on this shift BATHING - SCORE: 0-UNK DRESSING - UPPER BODY: Activity did not occur on this shift ARTICLES SCORE Total number of steps: 0 DRESSING - UPPER BODY - SCORE: 0-UNK DRESSING - LOWER BODY: Activity did not occur on this shift ARTICLES SCORE Total number of steps: 0 DRESSING - LOWER BODY - SCORE: 0-UNK TOILETING: TOILETING - STEP 1: Does the patient require the assistance of a person or device, or need extra time with toileting? Yes . TOILETING - STEP 2: Does the patient require the assistance of a helper? Yes. TOILETING - STEP 3: How much assistance does the patient require from the helper? Only supervision TOILETING - SCORE: 5-SUP BLADDER MANAGEMENT: BLADDER MANAGEMENT - STEP 1: Does the patient control the bladder completely and intentionally without equipment or devices or med ications, and is always continent? No. BLADDER MANAGEMENT - STEP 2: Does the patient require the assistance of a helper? No, patient requires and independently uses an a ssistive device, such as a urinal, bedpan, bedside commode, catheter, absorbent pad, or collecting de vice BLADDER MANAGEMENT - SCORE: 6-TRISTEN BOWEL MANAGEMENT: Activity did not occur on this shift BOWEL MANAGEMENT - SCORE: 7-IND TRANSFERS: BED, CHAIR, WHEELCHAIR: TRANSFERS: BED, CHAIR, WHEELCHAIR - STEP 1: Does the patient require assitance of a person or device, or need extra time with bed, chair, or whee lchair transfers? Yes. TRANSFERS: BED, CHAIR, WHEELCHAIR - STEP 2: Does the patient require the assistance of a helper? Yes. TRANSFERS: BED, CHAIR, WHEELCHAIR - STEP 3: How much assistance does the patient require from the helper? Only supervision TRANSFERS: BED, CHAIR, WHEELCHAIR - SCORE: 5-SUP TRANSFERS: TOILET: TRANSFERS: TOILET - STEP 1: Does the patient require the assistance of a person or device, or need extra time with toilet transfe rs? Yes. TRANSFERS: TOILET - STEP 2: Does the patient require the assistance of a helper? Yes. TRANSFERS: TOILET - STEP 3: How much assistance does the patient require from the helper? Only supervision, cuing, coaxing, OR he lp to set out transfer equipment or to lock brakes and/or lift foot rests TRANSFERS: TOILET - SCORE: 5-SUP TRANSFERS: SHOWER: Activity did not occur on this shift TRANSFERS: SHOWER - SCORE: 0-UNK TRANSFERS: TUB: Activity did not occur on this shift TRANSFERS: TUB - SCORE: 0-UNK LOCOMOTION: WALK: Activity did not occur on this shift LOCOMOTION: WALK - SCORE: 0-UNK LOCOMOTION: WHEELCHAIR: Activity did not occur on this shift LOCOMOTION: WHEELCHAIR - SCORE: 0-UNK COMPREHENSION: COMPREHENSION: TYPE: Both COMPREHENSION - STEP 1: Does the patient require help from a person or device, or need extra time to understand complex and a bstract ideas (such as current events, finances, discharge planning, medical issues, relationships, e tc)? No. COMPREHENSION - STEP 2: Does the patient need extra time, require an assistive device (such as glasses for visual comprehensi on or a hearing aid for auditory comprehension) or does s/he have mild difficulty understanding compl ex and abstract information? Yes. COMPREHENSION - SCORE: 6-TRISTEN EXPRESSION EXPRESSION: TYPE: Both EXPRESSION - STEP 1: Does the patient require help from a person or device, or need extra time expressing complex and abst ract ideas (such as current events, finances, discharge planning, medical issues, relationships, etc) ? No. EXPRESSION - STEP 2: Does the patient need extra time, require an assistive device (such as augmentive communication syste m or a communication board), OR does s/he have mild difficulty expressing complex and abstract ideas (including mild dysarthria or mild word-find problems)? Yes. EXPRESSION - SCORE: 6-TRISTEN SOCIAL INTERACTION: SOCIAL INTERACTION - STEP 1: Does the patient require a helper to interact with others in social and therapeutic situations? No. SOCIAL INTERACTION - STEP 2: Does the patient need extra time in social situations, OR does s/he interact with staff, other patien ts, and family members ONLY in structured environments, OR does s/he require medication for social in teraction? Yes, patient needs extra time SOCIAL INTERACTION - SCORE: 6-TRISTEN PROBLEM SOLVING: PROBLEM SOLVING - STEP 1: Does the patient need help from a person or device, or need extra time to solve complex problems such as managing a checking account or confronting interpersonal problems? No. PROBLEM SOLVING - STEP 2: Does the patient require extra time to make decisions or solve problems, OR does s/he have slight dif ficulty reading, initiating, or self-correcting in unfamiliar situations? Yes, patient needs extra ti me. PROBLEM SOLVING - SCORE: 6-TRISTEN MEMORY: MEMORY - STEP 1: Does the patient need help from a person or device, or need extra time to remember frequently encount ered people, daily routines, and executing requests? No. MEMORY - STEP 2: Does the patient have slight difficulty recognizing frequently encountered people, daily routines, or executing requests without the need for repetition or using self-initiated or environmental cues to remember? Yes. MEMORY - SCORE: 6-TRISTEN SIGNATURE PANEL: The following modified sections: Eating - Score, Grooming - Score, Bathing - Score, Dressing - Upper Body - Score, Dressing - Lower Body - Score, Toileting - Score, Bladder Management - Score, Bowel Man agement - Score, Transfers: Bed, Chair, Wheelchair - Score, Transfers: Toilet - Score, Transfers: Zahra wer - Score, Transfers: Tub - Score, Locomotion: Walk - Score, Locomotion: Wheelchair - Score, Compre hension - Score, Expression - Score, Social Interaction - Score, Problem Solving - Score, Memory - Sc ore were [electronically] signed by David Gonzalez on MonJan 08 2018 15:56:20 GMT-0600 (Central Standard Time)
--- NOTE | 2018-01-08 16:00 | R.PN ---
ENCOUNTER DATE AND TIME: 01/08/2018 15:49 (BEADER TENDER) NAME AMY WOMACK DATE OF : 1935 DATE OF ADMISSION: 12/30/2017 18:22 (BEADER TENDER) RIGHT CVACHIEF COMPLAINT: Right hemispheric stroke with left sided weakness and dysarthria. SUBJECTIVE: Pt denied any depression. Pt denied any Shortness of Breath. Ambulated 1000' with contact guard assistance using a rolling walker and 750' without an assistive de vice. Up and down 15 steps with contact guard assistance. VITAL SIGNS Temperature: 97.8 F SBP/DBP: 156/64 Pulse: 66 Resp: 16 Improved blood pressure control after increasing Amlodipine to 10 mg daily. MEDICATION ALLERGIES: No Known Drug Allergies (NKDA) ENVIRONMENTAL ALLERGIES: None Known - Substance Allergies None Known - Other Allergies None Known NURSING: - Shower allowing shower - Bladder care per protocol - Skin care per protocol PRECAUTIONS: - Weight Bearing Precaution WBAT left LE ACTIVITIES OOB only with supervision THERAPIES: - Occupational Therapy Evaluate and Treat. Visual Perceptual Training. Cognitive Retraining. - Speech Therapy Cognitive Training. Memory Strategies. Speech Intelligibility Training. Expressive Language Skills. R eceptive Language Skills. - Physical Therapy Evaluate and Treat. PHYSICAL EXAM - Gen Alert and awake Lying in bed No apparent distress Oriented to: person, time, and place - Skin No skin breakdown. Normacephalic - Eyes No abnormalities - ENMT No abnormalities - Neck No abnormalities - CVS RRR - Chest Clear - Abd + bowel sounds - GI Non tender Deferred - No abnormalities - Ext No significant edema - MSK 4+/5 weakness in left upper and lower extremity - Neuro 4/5 strength left upper and lower extremities. - Psych No abnormalities ASSESSMENT: Pt. is a 82 yo Right-handed ,female.On 12/27/2017 Pt. presented to [facility] with sudden onset of left-side weakness.On 12/27/2017 she was admitted to [facility] with diagnosis RIGHT CVA.her impairment category is Stroke 01 - Left Body (Right Brain) (01.1).Pre-morbidly, Pt. was independent/mod-I in Transfers Control, Communication, Social Cognition , Self-Care, Locomotion, and Sphincter Control; and she had good Sphincter Control.Currently, she has deficits of Transfers Control, Balance, Locomotion, Endurance, Safety Awareness, and Self-Care.Pt. i s now referred to [facility] for acute in-patient rehabilitation in order to m aximize patient's functional independence in activities of daily living, strength, ROM, and mobility. - Rehab Goal Patient has realistic goal of being discharged at assistance level 6-Rosalind to reside at Home with Fam wenceslao/Relatives. MDM/PLAN: - Physical Therapy Gait dysfunction - to improve, our physical therapists will perform initial evaluation of pt's statu s upon admission and devise an individualized program for Gait Training, and Wheel Chair mobility Inability to transfer - to improve, our physical therapists will perform initial evaluation of pt's status upon admission and devise an individualized program for Bed mobility Need for home safety evaluation - to improve, our physical therapists will perform initial evaluatio n of pt's status upon admission and devise an individualized program for Home Evaluation Need in caregiver upon discharge - to improve, our physical therapists will perform initial evaluati on of pt's status upon admission and devise an individualized program for Caregiver Training Edema - to improve, our physical therapists will perform initial evaluation of pt's status upon admi ssion and devise an individualized program for Elevation Training, and Lymphedema Therapy New precaution - to improve, our physical therapists will perform initial evaluation of pt's status upon admission and devise an individualized program for Patient precaution education Poor balance - to improve, our physical therapists will perform initial evaluation of pt's status up on admission and devise an individualized program for Balance Training Poor endurance - to improve, our physical therapists will perform initial evaluation of pt's status upon admission and devise an individualized program for Endurance Training Weakness - to improve, our physical therapists will perform initial evaluation of pt's status upon a dmission and devise an individualized program for Aquatic Therapy, Neuromuscular Reeducation, and Str engthening Achieving independence - to improve, our physical therapists will perform initial evaluation of pt's status upon admission and devise an individualized program for Community Reintegration Activities - Occupational Therapy ADL deficits - to improve, our occupation therapists will perform initial evaluation of pt's status upon admission and devise an individualized program for Bathing, Bed mobility, Community Reintegratio n, Cooking, Dressing, Eating, Fine Motor Skills, Grooming, Homemaking, Kitchen Mobility, Laundry, Pat ient Education, Safety Awareness, Splinting - Positioning, Transfers(Toilet, Tub, Shower), and Wheel Chair Management Need for primary care nurse - to improve, our occupation therapists will perform initial evaluation of pt's status upon admission and devise an individualized program for Caregiver Training Weakness - to improve, our occupation therapists will perform initial evaluation of pt's status upon admission and devise an individualized program for Aquatic Therapy, Balance, Endurance, UE ROM, and UE strengthening - Diet Type Continue Regular - Diet - Liquid Texture Continue Regular - Tube Feed Continue N/A - Bladder care per protocol - Weight Bearing Precaution WBAT left LE - Skin care per protocol - Diet - Solid Texture Continue Regular - Shower allowing shower for Dementia, TBI, Stroke, or others FUNCTIONAL STATUS: UPDATED AT WEEKLY TEAM CONFERENCE - Bladder Same accident frequency: 7-Ind - No accidents in the past 7 days - Bowel Same accident frequency: 7-Ind - No accidents in the past 7 days - Walking Same score based on distance walked: 3(>=150ft) - Wheelchair Same score based on distance traveled: 0(N/A) FUNCTIONAL STATUS: - Self-Care A. Eating Ind B. Grooming sup C. Bathing sup D. Dressing - Upper sup E. Dressing - Lower sup F. Toileting sup - Sphincter Control G: Bladder control Ind H: Bowel control Ind - Transfers Control I. Bed/Chair/Wheelchair modA J. Toilet modA K. Tub/Shower ADNO - Locomotion L. Walk/Wheelchair (C) modA L. Walk/Wheelchair (W) modA M. Stairs ADNO - Communication N. Comprehension (B) Ind O. Expression (B) Ind - Social Cognition P. Social Interaction Ind Q. Problem Solving Ind R. Memory Ind - Endurance Fair - Balance Fair - Safety Awareness Fair CURRENT FUNC. DEFICITS: Transfers Control, Balance, Locomotion, Endurance, Safety Awareness, and Self-Care SIGNATURE PANEL: (BEADER TENDER)
--- NOTE | 2018-01-08 16:26 | FAST ---
ENCOUNTER DATE AND TIME: 01/08/2018 08:00 (STRAND AND BINDER CONTROLLER) NAME AMY WOMACK DATE OF : 1935 DATE OF ADMISSION: 12/30/2017 18:22 (STRAND AND BINDER CONTROLLER) PHONE: AGE: 82 SSN# [id number] ENCOUNTER PHYSICIAN: Dr. Conrado Hunter M.D. 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 EATING: EATING - STEP 1: Does the patient require the assistance of a person or device, or need extra time when eating? No. EATING - SCORE: 7-IND GROOMING: Comb/brush hair Oral care Wash, rinse, and dry face Wash, rinse, and dry hands GROOMING - STEP 1: Does the patient require the assistance of a person or device, or need extra time when grooming? No. GROOMING - SCORE: 7-IND BATHING: Abdomen Buttocks Chest Left arm Left lower leg and foot Left upper leg Perineal area Right arm Right lower leg and foot Right upper leg BATHING - STEP 1: Does the patient require the assistance of a person or device, or need extra time when bathing? Yes. BATHING - STEP 2: Does the patient require the assistance of a helper? Yes. BATHING - STEP 3: How much assistance does the patient require from the helper? Only supervision, cuing, coaxing, instr uctions, encouragement BATHING - SCORE: 5-SUP DRESSING - UPPER BODY: T-shirt/pullover shirt (four steps) ARTICLES SCORE Total number of steps: 4 DRESSING - UPPER BODY - STEP 1: Does the patient require help from a person or device, or need extra time when dressing above the [address]eno st? Yes. DRESSING - UPPER BODY - STEP 2: Does the patient require the assistance of a helper? No. Patient only requires an assistive device, s uch as a button hook, velcro, or motor transport inspector. OR s/he takes more than reasonable time as s/he dresses the upper body. OR there is a concern for safety when s/he dresses the upper body DRESSING - UPPER BODY - SCORE: 6-TRISTEN DRESSING - LOWER BODY: Elastic waist pants (three steps) Sock - Left foot (one step) Sock - Right foot (one step) Tied or buckled shoe - Left foot (two steps) Tied or buckled shoe - Right foot (two steps) Underwear (three steps) ARTICLES SCORE Total number of steps: 12 DRESSING - LOWER BODY - STEP 1: Does the patient require help from a person or device, or need extra time when dressing below the [address] st? Yes. DRESSING - LOWER BODY - STEP 2: Does the patient require the assistance of a helper? No. Patient requires an assistive device such as a motor transport inspector. OR s/he takes more than reasonable time as s/he dresses the lower body, OR there is a con cern for safety when s/he dresses the lower body DRESSING - LOWER BODY - SCORE: 6-TRISTEN TOILETING: Activity did not occur on this shift TOILETING - SCORE: 0-UNK BLADDER MANAGEMENT: Activity did not occur on this shift BLADDER MANAGEMENT - SCORE: 7-IND BOWEL MANAGEMENT: Activity did not occur on this shift BOWEL MANAGEMENT - SCORE: 7-IND TRANSFERS: BED, CHAIR, WHEELCHAIR: Activity did not occur on this shift TRANSFERS: BED, CHAIR, WHEELCHAIR - SCORE: 0-UNK TRANSFERS: TOILET: Activity did not occur on this shift TRANSFERS: TOILET - SCORE: 0-UNK TRANSFERS: SHOWER: TRANSFERS: SHOWER - STEP 1: Does the patient require the assistance of a person or device, or need extra time with shower transfe rs? Yes. TRANSFERS: SHOWER - STEP 2: Does the patient require the assistance of a helper? No. The patient only uses an assistive device, t akes more than reasonable time, OR there is a concern for safety when s/he performs transfers. TRANSFERS: SHOWER - SCORE: 6-TRISTEN TRANSFERS: TUB: Activity did not occur on this shift TRANSFERS: TUB - SCORE: 0-UNK LOCOMOTION: WALK: Activity did not occur on this shift LOCOMOTION: WALK - SCORE: 0-UNK LOCOMOTION: WHEELCHAIR: Activity did not occur on this shift LOCOMOTION: WHEELCHAIR - SCORE: 0-UNK LOCOMOTION: STAIRS: Activity did not occur on this shift LOCOMOTION: STAIRS - SCORE: 0-UNK COMPREHENSION: COMPREHENSION: TYPE: Both COMPREHENSION - STEP 1: Does the patient require help from a person or device, or need extra time to understand complex and a bstract ideas (such as current events, finances, discharge planning, medical issues, relationships, e tc)? No. COMPREHENSION - STEP 2: Does the patient need extra time, require an assistive device (such as glasses for visual comprehensi on or a hearing aid for auditory comprehension) or does s/he have mild difficulty understanding compl ex and abstract information? Yes. COMPREHENSION - SCORE: 6-TRISTEN EXPRESSION EXPRESSION: TYPE: Both EXPRESSION - STEP 1: Does the patient require help from a person or device, or need extra time expressing complex and abst ract ideas (such as current events, finances, discharge planning, medical issues, relationships, etc) ? No. EXPRESSION - STEP 2: Does the patient need extra time, require an assistive device (such as augmentive communication syste m or a communication board), OR does s/he have mild difficulty expressing complex and abstract ideas (including mild dysarthria or mild word-find problems)? Yes. EXPRESSION - SCORE: 6-TRISTEN SOCIAL INTERACTION: SOCIAL INTERACTION - STEP 1: Does the patient require a helper to interact with others in social and therapeutic situations? No. SOCIAL INTERACTION - STEP 2: Does the patient need extra time in social situations, OR does s/he interact with staff, other patien ts, and family members ONLY in structured environments, OR does s/he require medication for social in teraction? Yes, patient needs extra time SOCIAL INTERACTION - SCORE: 6-TRISTEN PROBLEM SOLVING: PROBLEM SOLVING - STEP 1: Does the patient need help from a person or device, or need extra time to solve complex problems such as managing a checking account or confronting interpersonal problems? Yes. PROBLEM SOLVING - STEP 2: Does the patient solve basic routine problems half or more of the time? Yes. PROBLEM SOLVING - STEP 3: How often does the patient need help to solve basic routine problems? Less than 10% of the time PROBLEM SOLVING - SCORE: 5-SUP MEMORY: MEMORY - STEP 1: Does the patient need help from a person or device, or need extra time to remember frequently encount ered people, daily routines, and executing requests? Yes. MEMORY - STEP 2: How often does the patient need help to remember frequently encountered people, daily routines, and e xecuting requests? Less than 10% of the time MEMORY - SCORE: 5-SUP SIGNATURE PANEL: The following modified sections: Eating - Score, Grooming - Score, Bathing - Score, Dressing - Upper Body - Score, Dressing - Lower Body - Score, Toileting - Score, Transfers: Bed, Chair, Wheelchair - S core, Transfers: Toilet - Score, Transfers: Tub - Score, Transfers: Shower - Score, Comprehension - S core, Expression - Score, Social Interaction - Score, Problem Solving - Score, Memory - Score were [e lectronically] signed by Lorna Guardado OT on MonJan 08 2018 16:26:05 GMT-0600 (Central Standard T clementina)
[2018-01-08] MEDS: LOSARTAN POTASSIUM 50 MG TABLET PO SCH (20:07)
[2018-01-08] MEDS: ATORVASTATIN 40 MG TAB PO SCH (20:07)
--- NOTE | 2018-01-09 02:14 | FAST ---
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 Conrado Hunter M.D. 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 EATING: Activity did not occur on this shift EATING - SCORE: 0-UNK GROOMING: Activity did not occur on this shift GROOMING - SCORE: 0-UNK BATHING: Activity did not occur on this shift BATHING - SCORE: 0-UNK DRESSING - UPPER BODY: Patient is not dressing in public clothing ARTICLES SCORE Total number of steps: 0 DRESSING - UPPER BODY - SCORE: 0-UNK DRESSING - LOWER BODY: Patient is not dressing in public clothing ARTICLES SCORE Total number of steps: 0 DRESSING - LOWER BODY - SCORE: 0-UNK TOILETING: TOILETING - STEP 1: Does the patient require the assistance of a person or device, or need extra time with toileting? Yes . TOILETING - STEP 2: Does the patient require the assistance of a helper? Yes. TOILETING - STEP 3: How much assistance does the patient require from the helper? Hands-on assistance from the helper TOILETING - STEP 4: Of the 3 tasks: 1) Adjusting clothing prior to use, 2) Cleansing of perineal area, 3) Adjusting clot elizabeth after use; How many tasks does the patient perform WITHOUT assistance of the helper? Two tasks TOILETING - SCORE: 3-MOD BLADDER MANAGEMENT: Bedias removes incontinent device (Depends, pull ups, etc.); cleans the patient after accident / inco ntinent episode; and, applies new incontinent device. BLADDER MANAGEMENT - SCORE: 1-DEP BOWEL MANAGEMENT: Activity did not occur on this shift BOWEL MANAGEMENT - SCORE: 7-IND TRANSFERS: BED, CHAIR, WHEELCHAIR: Activity did not occur on this shift TRANSFERS: BED, CHAIR, WHEELCHAIR - SCORE: 0-UNK TRANSFERS: TOILET: Activity did not occur on this shift TRANSFERS: TOILET - SCORE: 0-UNK TRANSFERS: SHOWER: Activity did not occur on this shift TRANSFERS: SHOWER - SCORE: 0-UNK TRANSFERS: TUB: Activity did not occur on this shift TRANSFERS: TUB - SCORE: 0-UNK LOCOMOTION: WALK: Activity did not occur on this shift LOCOMOTION: WALK - SCORE: 0-UNK LOCOMOTION: WHEELCHAIR: Activity did not occur on this shift LOCOMOTION: WHEELCHAIR - SCORE: 0-UNK COMPREHENSION: COMPREHENSION: TYPE: Both COMPREHENSION - STEP 1: Does the patient require help from a person or device, or need extra time to understand complex and a bstract ideas (such as current events, finances, discharge planning, medical issues, relationships, e tc)? Yes. COMPREHENSION - STEP 2: Does the patient require help to understand questions or statements about basic needs or ideas (such as hunger, thirst, sleep, safety, daily schedule, room location, or discomfort) half or more of the t clementina? No. COMPREHENSION - STEP 3: How often does the patient need help to understand directions and conversation about basic needs? 10% - 24% of the time COMPREHENSION - SCORE: 4-MIN EXPRESSION EXPRESSION: TYPE: Both Patient requires the use of an interpreter for the deaf EXPRESSION - STEP 1: Does the patient require help from a person or device, or need extra time expressing complex and abst ract ideas (such as current events, finances, discharge planning, medical issues, relationships, etc) ? Yes. EXPRESSION - STEP 2: Does the patient require help to express basic necessities or ideas (such as hunger, thirst, sleep, s afety, daily schedule, room location, or discomfort) half or more of the time? No. EXPRESSION - STEP 3: How often does the patient need help to express directions and conversation about basic needs? 10-24% of the time EXPRESSION - SCORE: 4-MIN SOCIAL INTERACTION: SOCIAL INTERACTION - STEP 1: Does the patient require a helper to interact with others in social and therapeutic situations? No. SOCIAL INTERACTION - STEP 2: Does the patient need extra time in social situations, OR does s/he interact with staff, other patien ts, and family members ONLY in structured environments, OR does s/he require medication for social in teraction? Yes, patient needs extra time SOCIAL INTERACTION - SCORE: 6-TRISTEN PROBLEM SOLVING: PROBLEM SOLVING - STEP 1: Does the patient need help from a person or device, or need extra time to solve complex problems such as managing a checking account or confronting interpersonal problems? Yes. PROBLEM SOLVING - STEP 2: Does the patient solve basic routine problems half or more of the time? Yes. PROBLEM SOLVING - STEP 3: How often does the patient need help to solve basic routine problems? 10%-24% of the time PROBLEM SOLVING - SCORE: 4-MIN MEMORY: MEMORY - STEP 1: Does the patient need help from a person or device, or need extra time to remember frequently encount ered people, daily routines, and executing requests? No. MEMORY - STEP 2: Does the patient have slight difficulty recognizing frequently encountered people, daily routines, or executing requests without the need for repetition or using self-initiated or environmental cues to remember? Yes. MEMORY - SCORE: 6-TRISTEN SIGNATURE PANEL: The following modified sections: Eating - Score, Grooming - Score, Dressing - Upper Body - Score, Gordo ssing - Lower Body - Score, Toileting - Score, Bladder Management - Score, Bowel Management - Score, Transfers: Bed, Chair, Wheelchair - Score, Transfers: Toilet - Score, Transfers: Shower - Score, Victoria sfers: Tub - Score, Locomotion: Walk - Score, Locomotion: Wheelchair - Score, Comprehension - Score, Expression - Score, Social Interaction - Score, Problem Solving - Score, Memory - Score were [electro nically] signed by Noreen Jiang CNA on MonJan 09 2018 02:13:33 GMT-0600 (Central Standard Time)
[2018-01-09] MEDS: ENOXAPARIN 40 MG/0.4 ML SQ SCH (07:27)
[2018-01-09] MEDS: AMLODIPINE 5 MG TAB PO SCH (08:16)
[2018-01-09] MEDS: ASPIRIN EC 81 MG TAB PO SCH (08:16)
[2018-01-09] MEDS: CLOPIDOGREL 75 MG TABLET PO SCH (08:16)
[2018-01-09] MEDS: FOLIC ACID 1 MG TABLET PO SCH (08:16)
[2018-01-09] MEDS ORDERED: ACETAMINOPHEN 500 MG TAB PO PRN (12:33)
[2018-01-09] MEDS: LOSARTAN POTASSIUM 50 MG TABLET PO SCH (20:02)
[2018-01-09] MEDS: ATORVASTATIN 40 MG TAB PO SCH (20:03)
--- NOTE | 2018-01-09 21:50 | FAST ---
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 Conrado Hunter M.D. 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 EATING: Activity did not occur on this shift EATING - SCORE: 0-UNK GROOMING: Activity did not occur on this shift GROOMING - SCORE: 0-UNK BATHING: Activity did not occur on this shift BATHING - SCORE: 0-UNK DRESSING - UPPER BODY: Activity did not occur on this shift Patient is not dressing in public clothing ARTICLES SCORE Total number of steps: 0 DRESSING - UPPER BODY - SCORE: 0-UNK DRESSING - LOWER BODY: Activity did not occur on this shift Patient is not dressing in public clothing ARTICLES SCORE Total number of steps: 0 DRESSING - LOWER BODY - SCORE: 0-UNK TOILETING: Activity did not occur on this shift TOILETING - SCORE: 0-UNK BLADDER MANAGEMENT: Activity did not occur on this shift BLADDER MANAGEMENT - SCORE: 7-IND BOWEL MANAGEMENT: Activity did not occur on this shift BOWEL MANAGEMENT - SCORE: 7-IND TRANSFERS: BED, CHAIR, WHEELCHAIR: TRANSFERS: BED, CHAIR, WHEELCHAIR - STEP 1: Does the patient require assitance of a person or device, or need extra time with bed, chair, or whee lchair transfers? Yes. TRANSFERS: BED, CHAIR, WHEELCHAIR - STEP 2: Does the patient require the assistance of a helper? Yes. TRANSFERS: BED, CHAIR, WHEELCHAIR - STEP 3: How much assistance does the patient require from the helper? Only supervision TRANSFERS: BED, CHAIR, WHEELCHAIR - SCORE: 5-SUP TRANSFERS: TOILET: Activity did not occur on this shift TRANSFERS: TOILET - SCORE: 0-UNK TRANSFERS: SHOWER: Activity did not occur on this shift TRANSFERS: SHOWER - SCORE: 0-UNK TRANSFERS: TUB: Activity did not occur on this shift TRANSFERS: TUB - SCORE: 0-UNK LOCOMOTION: WALK: LOCOMOTION: WALK - STEP 1: Does the patient need help from a person or device, or need extra time to walk 150 feet? Yes. LOCOMOTION: WALK - STEP 2: How much assistance does the patient require to walk a minimum of 150 feet? Only supervision, cuing, or coaxing LOCOMOTION: WALK - SCORE: 5-SUP LOCOMOTION: WHEELCHAIR: LOCOMOTION: WHEELCHAIR - STEP 1: Does the patient need help to go 150 feet in a wheelchair? Yes. LOCOMOTION: WHEELCHAIR - STEP 2: How much assistance does the patient need from the helper? Only supervision, cuing, or coaxing LOCOMOTION: WHEELCHAIR - SCORE: 5-SUP LOCOMOTION: STAIRS: LOCOMOTION: STAIRS - STEP 1: Does the patient need help to go up and down 12 to 14 stairs? Yes. LOCOMOTION: STAIRS - STEP 2: How much assistance does the patient need from the helper to go a minimum of 12 to 14 stairs? Only winslow pervision, cuing, or coaxing LOCOMOTION: STAIRS - SCORE: 5-SUP COMPREHENSION: COMPREHENSION - SCORE: 0-UNK EXPRESSION EXPRESSION - SCORE: 0-UNK SOCIAL INTERACTION: SOCIAL INTERACTION - SCORE: 0-UNK PROBLEM SOLVING: PROBLEM SOLVING - SCORE: 0-UNK MEMORY: MEMORY - SCORE: 0-UNK SIGNATURE PANEL: The following modified sections: Transfers: Bed, Chair, Wheelchair - Score, Transfers: Toilet - Score , Locomotion: Walk - Score, Locomotion: Wheelchair - Score, Locomotion: Stairs - Score were [von franks] signed by Arturo Yeboah PTA on MonJan 09 2018 14:52:33 GMT-0600 (Central Standard Time)
--- NOTE | 2018-01-09 21:50 | FAST ---
ENCOUNTER DATE AND TIME: 01/08/2018 08:00 (PERIANESTHESIA RN) NAME AMY WOMACK DATE OF : 1935 DATE OF ADMISSION: 12/30/2017 18:22 (PERIANESTHESIA RN) PHONE: AGE: 82 SSN# [id number] ENCOUNTER PHYSICIAN: Dr. Conrado Hunter M.D. 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 EATING: Activity did not occur on this shift EATING - SCORE: 0-UNK GROOMING: Activity did not occur on this shift GROOMING - SCORE: 0-UNK BATHING: Activity did not occur on this shift BATHING - SCORE: 0-UNK DRESSING - UPPER BODY: Activity did not occur on this shift Patient is not dressing in public clothing ARTICLES SCORE Total number of steps: 0 DRESSING - UPPER BODY - SCORE: 0-UNK DRESSING - LOWER BODY: Activity did not occur on this shift Patient is not dressing in public clothing ARTICLES SCORE Total number of steps: 0 DRESSING - LOWER BODY - SCORE: 0-UNK TOILETING: Activity did not occur on this shift TOILETING - SCORE: 0-UNK BLADDER MANAGEMENT: Activity did not occur on this shift BLADDER MANAGEMENT - SCORE: 7-IND BOWEL MANAGEMENT: Activity did not occur on this shift BOWEL MANAGEMENT - SCORE: 7-IND TRANSFERS: BED, CHAIR, WHEELCHAIR: TRANSFERS: BED, CHAIR, WHEELCHAIR - STEP 1: Does the patient require assitance of a person or device, or need extra time with bed, chair, or whee lchair transfers? Yes. TRANSFERS: BED, CHAIR, WHEELCHAIR - STEP 2: Does the patient require the assistance of a helper? Yes. TRANSFERS: BED, CHAIR, WHEELCHAIR - STEP 3: How much assistance does the patient require from the helper? Only supervision TRANSFERS: BED, CHAIR, WHEELCHAIR - SCORE: 5-SUP TRANSFERS: TOILET: Activity did not occur on this shift TRANSFERS: TOILET - SCORE: 0-UNK TRANSFERS: SHOWER: Activity did not occur on this shift TRANSFERS: SHOWER - SCORE: 0-UNK TRANSFERS: TUB: Activity did not occur on this shift TRANSFERS: TUB - SCORE: 0-UNK LOCOMOTION: WALK: LOCOMOTION: WALK - STEP 1: Does the patient need help from a person or device, or need extra time to walk 150 feet? Yes. LOCOMOTION: WALK - STEP 2: How much assistance does the patient require to walk a minimum of 150 feet? Only supervision, cuing, or coaxing LOCOMOTION: WALK - SCORE: 5-SUP LOCOMOTION: WHEELCHAIR: LOCOMOTION: WHEELCHAIR - STEP 1: Does the patient need help to go 150 feet in a wheelchair? Yes. LOCOMOTION: WHEELCHAIR - STEP 2: How much assistance does the patient need from the helper? Only supervision, cuing, or coaxing LOCOMOTION: WHEELCHAIR - SCORE: 5-SUP LOCOMOTION: STAIRS: LOCOMOTION: STAIRS - STEP 1: Does the patient need help to go up and down 12 to 14 stairs? Yes. LOCOMOTION: STAIRS - STEP 2: How much assistance does the patient need from the helper to go a minimum of 12 to 14 stairs? Only winslow pervision, cuing, or coaxing LOCOMOTION: STAIRS - SCORE: 5-SUP COMPREHENSION: COMPREHENSION - SCORE: 0-UNK EXPRESSION EXPRESSION - SCORE: 0-UNK SOCIAL INTERACTION: SOCIAL INTERACTION - SCORE: 0-UNK PROBLEM SOLVING: PROBLEM SOLVING - SCORE: 0-UNK MEMORY: MEMORY - SCORE: 0-UNK SIGNATURE PANEL: The following modified sections: Transfers: Bed, Chair, Wheelchair - Score, Transfers: Toilet - Score , Locomotion: Walk - Score, Locomotion: Wheelchair - Score, Locomotion: Stairs - Score were [von franks] signed by Arturo Yeboah PTA on MonJan 09 2018 14:53:38 GMT-0600 (Central Standard Time)
--- NOTE | 2018-01-09 21:50 | FAST ---
SHIFT START DATE/TIME: 01/09/2018 07:00 (DEAN OF MEN) SHIFT END DATE/TIME: 01/09/2018 19:00 (DEAN OF MEN) NAME AMY WOMACK DATE OF : 1935 DATE OF ADMISSION: 12/30/2017 18:22 (DEAN OF MEN) PHONE: AGE: 82 SSN# [id number] ENCOUNTER PHYSICIAN: Dr. Conrado Hunter M.D. 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 EATING: EATING - STEP 1: Does the patient require the assistance of a person or device, or need extra time when eating? Yes. EATING - STEP 2: Does the patient require the assistance of a helper? No, patient only requires an assistive device, O R s/he takes more than reasonable time to eat, OR there is a safety concern, OR s/he requires modifie d food consistency EATING - SCORE: 6-TRISTEN GROOMING: Comb/brush hair Oral care GROOMING - STEP 1: Does the patient require the assistance of a person or device, or need extra time when grooming? No. GROOMING - SCORE: 7-IND BATHING: Activity did not occur on this shift BATHING - SCORE: 0-UNK DRESSING - UPPER BODY: Activity did not occur on this shift ARTICLES SCORE Total number of steps: 0 DRESSING - UPPER BODY - SCORE: 0-UNK DRESSING - LOWER BODY: Activity did not occur on this shift ARTICLES SCORE Total number of steps: 0 DRESSING - LOWER BODY - SCORE: 0-UNK TOILETING: TOILETING - STEP 1: Does the patient require the assistance of a person or device, or need extra time with toileting? Yes . TOILETING - STEP 2: Does the patient require the assistance of a helper? Yes. TOILETING - STEP 3: How much assistance does the patient require from the helper? Hands-on assistance from the helper TOILETING - STEP 4: Of the 3 tasks: 1) Adjusting clothing prior to use, 2) Cleansing of perineal area, 3) Adjusting clot elizabeth after use; How many tasks does the patient perform WITHOUT assistance of the helper? Three tasks with steadying assistance from the helper TOILETING - SCORE: 4-MIN BLADDER MANAGEMENT: BLADDER MANAGEMENT - STEP 1: Does the patient control the bladder completely and intentionally without equipment or devices or med ications, and is always continent? No. BLADDER MANAGEMENT - STEP 2: Does the patient require the assistance of a helper? No, patient requires and independently uses an a ssistive device, such as a urinal, bedpan, bedside commode, catheter, absorbent pad, or collecting de vice BLADDER MANAGEMENT - SCORE: 6-TRISTEN BOWEL MANAGEMENT: Activity did not occur on this shift BOWEL MANAGEMENT - SCORE: 7-IND TRANSFERS: BED, CHAIR, WHEELCHAIR: TRANSFERS: BED, CHAIR, WHEELCHAIR - STEP 1: Does the patient require assitance of a person or device, or need extra time with bed, chair, or whee lchair transfers? Yes. TRANSFERS: BED, CHAIR, WHEELCHAIR - STEP 2: Does the patient require the assistance of a helper? Yes. TRANSFERS: BED, CHAIR, WHEELCHAIR - STEP 3: How much assistance does the patient require from the helper? Steadying/guiding assistance TRANSFERS: BED, CHAIR, WHEELCHAIR - SCORE: 4-MIN TRANSFERS: TOILET: TRANSFERS: TOILET - STEP 1: Does the patient require the assistance of a person or device, or need extra time with toilet transfe rs? Yes. TRANSFERS: TOILET - STEP 2: Does the patient require the assistance of a helper? Yes. TRANSFERS: TOILET - STEP 3: How much assistance does the patient require from the helper? Patient performs half or more of the tr ansferring tasks TRANSFERS: TOILET - STEP 4: Does the patient need only incidental help such as contact guard or steadying during toilet transfer? Yes. TRANSFERS: TOILET - SCORE: 4-MIN TRANSFERS: SHOWER: Activity did not occur on this shift TRANSFERS: SHOWER - SCORE: 0-UNK TRANSFERS: TUB: Activity did not occur on this shift TRANSFERS: TUB - SCORE: 0-UNK LOCOMOTION: WALK: Activity did not occur on this shift LOCOMOTION: WALK - SCORE: 0-UNK LOCOMOTION: WHEELCHAIR: Activity did not occur on this shift LOCOMOTION: WHEELCHAIR - SCORE: 0-UNK COMPREHENSION: COMPREHENSION: TYPE: Both COMPREHENSION - STEP 1: Does the patient require help from a person or device, or need extra time to understand complex and a bstract ideas (such as current events, finances, discharge planning, medical issues, relationships, e tc)? No. COMPREHENSION - STEP 2: Does the patient need extra time, require an assistive device (such as glasses for visual comprehensi on or a hearing aid for auditory comprehension) or does s/he have mild difficulty understanding compl ex and abstract information? Yes. COMPREHENSION - SCORE: 6-TRISTEN EXPRESSION EXPRESSION: TYPE: Both EXPRESSION - STEP 1: Does the patient require help from a person or device, or need extra time expressing complex and abst ract ideas (such as current events, finances, discharge planning, medical issues, relationships, etc) ? No. EXPRESSION - STEP 2: Does the patient need extra time, require an assistive device (such as augmentive communication syste m or a communication board), OR does s/he have mild difficulty expressing complex and abstract ideas (including mild dysarthria or mild word-find problems)? Yes. EXPRESSION - SCORE: 6-TRISTEN SOCIAL INTERACTION: SOCIAL INTERACTION - STEP 1: Does the patient require a helper to interact with others in social and therapeutic situations? No. SOCIAL INTERACTION - STEP 2: Does the patient need extra time in social situations, OR does s/he interact with staff, other patien ts, and family members ONLY in structured environments, OR does s/he require medication for social in teraction? Yes, patient needs extra time SOCIAL INTERACTION - SCORE: 6-TRISTEN PROBLEM SOLVING: PROBLEM SOLVING - STEP 1: Does the patient need help from a person or device, or need extra time to solve complex problems such as managing a checking account or confronting interpersonal problems? No. PROBLEM SOLVING - STEP 2: Does the patient require extra time to make decisions or solve problems, OR does s/he have slight dif ficulty reading, initiating, or self-correcting in unfamiliar situations? Yes, patient needs extra ti me. PROBLEM SOLVING - SCORE: 6-TRISTEN MEMORY: MEMORY - STEP 1: Does the patient need help from a person or device, or need extra time to remember frequently encount ered people, daily routines, and executing requests? No. MEMORY - STEP 2: Does the patient have slight difficulty recognizing frequently encountered people, daily routines, or executing requests without the need for repetition or using self-initiated or environmental cues to remember? Yes. MEMORY - SCORE: 6-TRISTEN SIGNATURE PANEL: The following modified sections: Eating - Score, Grooming - Score, Bathing - Score, Dressing - Upper Body - Score, Dressing - Lower Body - Score, Toileting - Score, Bladder Management - Score, Bowel Man agement - Score, Transfers: Bed, Chair, Wheelchair - Score, Transfers: Toilet - Score, Transfers: Zahra wer - Score, Transfers: Tub - Score, Locomotion: Walk - Score, Locomotion: Wheelchair - Score, Compre hension - Score, Expression - Score, Social Interaction - Score, Problem Solving - Score, Memory - Sc ore were [electronically] signed by David Gonzalez on MonJan 09 2018 14:40:49 GMT-0600 (Central Standard Time)
--- NOTE | 2018-01-09 21:51 | R.PN ---
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 SUBJECTIVE: Pt denied any depression. Pt denied any Shortness of Breath. Ambulated 1500' with standby assistance without an assistive device. Up and down 15 steps with contac t guard assistance. VITAL SIGNS Temperature: 97.8 F SBP/DBP: 145/55 Pulse: 78 Resp: 16 Improved blood pressure control after increasing Amlodipine to 10 mg daily. MEDICATION ALLERGIES: No Known Drug Allergies (NKDA) ENVIRONMENTAL ALLERGIES: None Known - Substance Allergies None Known - Other Allergies None Known NURSING: - Shower allowing shower - Bladder care per protocol - Skin care per protocol PRECAUTIONS: - Weight Bearing Precaution WBAT left LE ACTIVITIES OOB only with supervision THERAPIES: - Occupational Therapy Evaluate and Treat. Visual Perceptual Training. Cognitive Retraining. - Speech Therapy Cognitive Training. Memory Strategies. Speech Intelligibility Training. Expressive Language Skills. R eceptive Language Skills. - Physical Therapy Evaluate and Treat. PHYSICAL EXAM - Gen Alert and awake Lying in bed No apparent distress Oriented to: person, time, and place - Skin No skin breakdown. Normacephalic - Eyes No abnormalities - ENMT No abnormalities - Neck No abnormalities - CVS RRR - Chest Clear - Abd + bowel sounds - GI Non tender Deferred - No abnormalities - Ext No significant edema - MSK 4+/5 weakness in left upper and lower extremity - Neuro 4/5 strength left upper and lower extremities. - Psych No abnormalities ASSESSMENT: Pt. is a 82 yo Right-handed ,female.On 12/27/2017 Pt. presented to [facility] with sudden onset of left-side weakness.On 12/27/2017 she was admitted to [facility] with diagnosis RIGHT CVA.her impairment category is Stroke 01 - Left Body (Right Brain) (01.1).Pre-morbidly, Pt. was independent/mod-I in Transfers Control, Communication, Social Cognition , Self-Care, Locomotion, and Sphincter Control; and she had good Sphincter Control.Currently, she has deficits of Transfers Control, Balance, Locomotion, Endurance, Safety Awareness, and Self-Care.Pt. i s now referred to [facility] for acute in-patient rehabilitation in order to m aximize patient's functional independence in activities of daily living, strength, ROM, and mobility. - Rehab Goal Patient has realistic goal of being discharged at assistance level 6-Rosalind to reside at Home with Fam wenceslao/Relatives. MDM/PLAN: - Physical Therapy Gait dysfunction - to improve, our physical therapists will perform initial evaluation of pt's statu s upon admission and devise an individualized program for Gait Training, and Wheel Chair mobility Inability to transfer - to improve, our physical therapists will perform initial evaluation of pt's status upon admission and devise an individualized program for Bed mobility Need for home safety evaluation - to improve, our physical therapists will perform initial evaluatio n of pt's status upon admission and devise an individualized program for Home Evaluation Need in caregiver upon discharge - to improve, our physical therapists will perform initial evaluati on of pt's status upon admission and devise an individualized program for Caregiver Training Edema - to improve, our physical therapists will perform initial evaluation of pt's status upon admi ssion and devise an individualized program for Elevation Training, and Lymphedema Therapy New precaution - to improve, our physical therapists will perform initial evaluation of pt's status upon admission and devise an individualized program for Patient precaution education Poor balance - to improve, our physical therapists will perform initial evaluation of pt's status up on admission and devise an individualized program for Balance Training Poor endurance - to improve, our physical therapists will perform initial evaluation of pt's status upon admission and devise an individualized program for Endurance Training Weakness - to improve, our physical therapists will perform initial evaluation of pt's status upon a dmission and devise an individualized program for Aquatic Therapy, Neuromuscular Reeducation, and Str engthening Achieving independence - to improve, our physical therapists will perform initial evaluation of pt's status upon admission and devise an individualized program for Community Reintegration Activities - Occupational Therapy ADL deficits - to improve, our occupation therapists will perform initial evaluation of pt's status upon admission and devise an individualized program for Bathing, Bed mobility, Community Reintegratio n, Cooking, Dressing, Eating, Fine Motor Skills, Grooming, Homemaking, Kitchen Mobility, Laundry, Pat ient Education, Safety Awareness, Splinting - Positioning, Transfers(Toilet, Tub, Shower), and Wheel Chair Management Need for critical care nurse practitioner - to improve, our occupation therapists will perform initial evaluation of pt's status upon admission and devise an individualized program for Caregiver Training Weakness - to improve, our occupation therapists will perform initial evaluation of pt's status upon admission and devise an individualized program for Aquatic Therapy, Balance, Endurance, UE ROM, and UE strengthening - Diet Type Continue Regular - Diet - Liquid Texture Continue Regular - Tube Feed Continue N/A - Bladder care per protocol - Weight Bearing Precaution WBAT left LE - Skin care per protocol - Diet - Solid Texture Continue Regular - Shower allowing shower for Dementia, TBI, Stroke, or others FUNCTIONAL STATUS: UPDATED AT WEEKLY TEAM CONFERENCE - Bladder Same accident frequency: 7-Ind - No accidents in the past 7 days - Bowel Same accident frequency: 7-Ind - No accidents in the past 7 days - Walking Same score based on distance walked: 3(>=150ft) - Wheelchair Same score based on distance traveled: 0(N/A) FUNCTIONAL STATUS: - Self-Care A. Eating Ind B. Grooming sup C. Bathing sup D. Dressing - Upper sup E. Dressing - Lower sup F. Toileting sup - Sphincter Control G: Bladder control Ind H: Bowel control Ind - Transfers Control I. Bed/Chair/Wheelchair modA J. Toilet modA K. Tub/Shower ADNO - Locomotion L. Walk/Wheelchair (C) modA L. Walk/Wheelchair (W) modA M. Stairs ADNO - Communication N. Comprehension (B) Ind O. Expression (B) Ind - Social Cognition P. Social Interaction Ind Q. Problem Solving Ind R. Memory Ind - Endurance Fair - Balance Fair - Safety Awareness Fair CURRENT FUNC. DEFICITS: Transfers Control, Balance, Locomotion, Endurance, Safety Awareness, and Self-Care SIGNATURE PANEL: (DELIVERY STOCK CLERK)
--- NOTE | 2018-01-10 02:44 | FAST ---
SHIFT START DATE/TIME: 01/09/2018 19:00 (WHEEL WORKER) SHIFT END DATE/TIME: 01/10/2018 07:00 (WHEEL WORKER) NAME AMY WOMACK DATE OF : 1935 DATE OF ADMISSION: 12/30/2017 18:22 (WHEEL WORKER) PHONE: AGE: 82 SSN# [id number] ENCOUNTER PHYSICIAN: Dr. Conrado Hunter M.D. 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 EATING: Activity did not occur on this shift EATING - SCORE: 0-UNK GROOMING: Activity did not occur on this shift GROOMING - SCORE: 0-UNK BATHING: Activity did not occur on this shift BATHING - SCORE: 0-UNK DRESSING - UPPER BODY: Patient is not dressing in public clothing ARTICLES SCORE Total number of steps: 0 DRESSING - UPPER BODY - SCORE: 0-UNK DRESSING - LOWER BODY: Patient is not dressing in public clothing ARTICLES SCORE Total number of steps: 0 DRESSING - LOWER BODY - SCORE: 0-UNK TOILETING: Activity did not occur on this shift TOILETING - SCORE: 0-UNK BLADDER MANAGEMENT: [place] removes incontinent device (Depends, pull ups, etc.); cleans the patient after accident / inco ntinent episode; and, applies new incontinent device. BLADDER MANAGEMENT - SCORE: 1-DEP BLADDER MANAGEMENT - FREQUENCY OF ACCIDENTS: BLADDER MANAGEMENT(FA) - STEP 1: How many accidents has the patient had during the current shift? 1 BOWEL MANAGEMENT: Activity did not occur on this shift BOWEL MANAGEMENT - SCORE: 7-IND TRANSFERS: BED, CHAIR, WHEELCHAIR: Activity did not occur on this shift TRANSFERS: BED, CHAIR, WHEELCHAIR - SCORE: 0-UNK TRANSFERS: TOILET: Activity did not occur on this shift TRANSFERS: TOILET - SCORE: 0-UNK TRANSFERS: SHOWER: Activity did not occur on this shift TRANSFERS: SHOWER - SCORE: 0-UNK TRANSFERS: TUB: Activity did not occur on this shift TRANSFERS: TUB - SCORE: 0-UNK LOCOMOTION: WALK: Activity did not occur on this shift LOCOMOTION: WALK - SCORE: 0-UNK LOCOMOTION: WHEELCHAIR: Activity did not occur on this shift LOCOMOTION: WHEELCHAIR - SCORE: 0-UNK COMPREHENSION: COMPREHENSION: TYPE: Both COMPREHENSION - STEP 1: Does the patient require help from a person or device, or need extra time to understand complex and a bstract ideas (such as current events, finances, discharge planning, medical issues, relationships, e tc)? Yes. COMPREHENSION - STEP 2: Does the patient require help to understand questions or statements about basic needs or ideas (such as hunger, thirst, sleep, safety, daily schedule, room location, or discomfort) half or more of the t clementina? No. COMPREHENSION - STEP 3: How often does the patient need help to understand directions and conversation about basic needs? 10% - 24% of the time COMPREHENSION - SCORE: 4-MIN EXPRESSION EXPRESSION: TYPE: Both Patient requires the use of an turner machine EXPRESSION - STEP 1: Does the patient require help from a person or device, or need extra time expressing complex and abst ract ideas (such as current events, finances, discharge planning, medical issues, relationships, etc) ? Yes. EXPRESSION - STEP 2: Does the patient require help to express basic necessities or ideas (such as hunger, thirst, sleep, s afety, daily schedule, room location, or discomfort) half or more of the time? No. EXPRESSION - STEP 3: How often does the patient need help to express directions and conversation about basic needs? 10-24% of the time EXPRESSION - SCORE: 4-MIN SOCIAL INTERACTION: SOCIAL INTERACTION - STEP 1: Does the patient require a helper to interact with others in social and therapeutic situations? No. SOCIAL INTERACTION - STEP 2: Does the patient need extra time in social situations, OR does s/he interact with staff, other patien ts, and family members ONLY in structured environments, OR does s/he require medication for social in teraction? Yes, patient needs extra time SOCIAL INTERACTION - SCORE: 6-TRISTEN PROBLEM SOLVING: PROBLEM SOLVING - STEP 1: Does the patient need help from a person or device, or need extra time to solve complex problems such as managing a checking account or confronting interpersonal problems? No. PROBLEM SOLVING - STEP 2: Does the patient require extra time to make decisions or solve problems, OR does s/he have slight dif ficulty reading, initiating, or self-correcting in unfamiliar situations? Yes, patient needs extra ti me. PROBLEM SOLVING - SCORE: 6-TRISTEN MEMORY: MEMORY - STEP 1: Does the patient need help from a person or device, or need extra time to remember frequently encount ered people, daily routines, and executing requests? No. MEMORY - STEP 2: Does the patient have slight difficulty recognizing frequently encountered people, daily routines, or executing requests without the need for repetition or using self-initiated or environmental cues to remember? Yes. MEMORY - SCORE: 6-TRISTEN SIGNATURE PANEL: The following modified sections: Eating - Score, Grooming - Score, Dressing - Upper Body - Score, Gordo ssing - Lower Body - Score, Toileting - Score, Bladder Management - Score, Bowel Management - Score, Transfers: Bed, Chair, Wheelchair - Score, Transfers: Toilet - Score, Transfers: Shower - Score, Victoria sfers: Tub - Score, Locomotion: Walk - Score, Locomotion: Wheelchair - Score, Comprehension - Score, Expression - Score, Social Interaction - Score, Problem Solving - Score, Memory - Score were [electro nically] signed by Norene Jiang CNA on MonJan 10 2018 02:43:28 GMT-0600 (Central Standard Time)
[2018-01-10] MEDS: ENOXAPARIN 40 MG/0.4 ML SQ SCH (06:47)
[2018-01-10] MEDS: AMLODIPINE 5 MG TAB PO SCH (08:16)
[2018-01-10] MEDS: FOLIC ACID 1 MG TABLET PO SCH (08:16)
[2018-01-10] MEDS: ASPIRIN EC 81 MG TAB PO SCH (08:17)
[2018-01-10] MEDS: CLOPIDOGREL 75 MG TABLET PO SCH (08:17)
--- NOTE | 2018-01-10 14:19 | FAST ---
SHIFT START DATE/TIME: 01/10/2018 07:00 (NEWSPAPER DISTRIBUTOR SUPERVISOR) SHIFT END DATE/TIME: 01/10/2018 19:00 (NEWSPAPER DISTRIBUTOR SUPERVISOR) NAME AMY WOMACK DATE OF : 1935 DATE OF ADMISSION: 12/30/2017 18:22 (NEWSPAPER DISTRIBUTOR SUPERVISOR) PHONE: AGE: 82 SSN# [id number] ENCOUNTER PHYSICIAN: Dr. Conrado Hunter M.D. 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 EATING: EATING - STEP 1: Does the patient require the assistance of a person or device, or need extra time when eating? Yes. EATING - STEP 2: Does the patient require the assistance of a helper? Yes. EATING - STEP 3: Does the patient perform half or more of the eating tasks? Yes. EATING - STEP 4: Does the patient need only supervision, cuing, coaxing OR help to apply an orthosis OR help to cut fo od, open containers, pour liquids, or butter bread? Yes. EATING - SCORE: 5-SUP GROOMING: Activity did not occur on this shift GROOMING - SCORE: 0-UNK BATHING: Activity did not occur on this shift BATHING - SCORE: 0-UNK DRESSING - UPPER BODY: Activity did not occur on this shift ARTICLES SCORE Total number of steps: 0 DRESSING - UPPER BODY - SCORE: 0-UNK DRESSING - LOWER BODY: Activity did not occur on this shift ARTICLES SCORE Total number of steps: 0 DRESSING - LOWER BODY - SCORE: 0-UNK TOILETING: TOILETING - STEP 1: Does the patient require the assistance of a person or device, or need extra time with toileting? Yes . TOILETING - STEP 2: Does the patient require the assistance of a helper? Yes. TOILETING - STEP 3: How much assistance does the patient require from the helper? Hands-on assistance from the helper TOILETING - STEP 4: Of the 3 tasks: 1) Adjusting clothing prior to use, 2) Cleansing of perineal area, 3) Adjusting clot elizabeth after use; How many tasks does the patient perform WITHOUT assistance of the helper? Three tasks with steadying assistance from the helper TOILETING - SCORE: 4-MIN BLADDER MANAGEMENT: BLADDER MANAGEMENT - STEP 1: Does the patient control the bladder completely and intentionally without equipment or devices or med ications, and is always continent? No. BLADDER MANAGEMENT - STEP 2: Does the patient require the assistance of a helper? No, patient only requires extra time BLADDER MANAGEMENT - SCORE: 6-TRISTEN BLADDER MANAGEMENT - FREQUENCY OF ACCIDENTS: BLADDER MANAGEMENT(FA) - STEP 1: How many accidents has the patient had during the current shift? 0 BOWEL MANAGEMENT: Activity did not occur on this shift BOWEL MANAGEMENT - SCORE: 7-IND BOWEL MANAGEMENT - FREQUENCY OF ACCIDENTS: BOWEL MANAGEMENT(FA) - STEP 1: How many accidents has the patient had during the current shift? 0 TRANSFERS: BED, CHAIR, WHEELCHAIR: TRANSFERS: BED, CHAIR, WHEELCHAIR - STEP 1: Does the patient require assitance of a person or device, or need extra time with bed, chair, or whee lchair transfers? Yes. TRANSFERS: BED, CHAIR, WHEELCHAIR - STEP 2: Does the patient require the assistance of a helper? Yes. TRANSFERS: BED, CHAIR, WHEELCHAIR - STEP 3: How much assistance does the patient require from the helper? Steadying/guiding assistance TRANSFERS: BED, CHAIR, WHEELCHAIR - SCORE: 4-MIN TRANSFERS: TOILET: TRANSFERS: TOILET - STEP 1: Does the patient require the assistance of a person or device, or need extra time with toilet transfe rs? Yes. TRANSFERS: TOILET - STEP 2: Does the patient require the assistance of a helper? Yes. TRANSFERS: TOILET - STEP 3: How much assistance does the patient require from the helper? Patient performs half or more of the tr ansferring tasks TRANSFERS: TOILET - STEP 4: Does the patient need only incidental help such as contact guard or steadying during toilet transfer? Yes. TRANSFERS: TOILET - SCORE: 4-MIN TRANSFERS: SHOWER: Activity did not occur on this shift TRANSFERS: SHOWER - SCORE: 0-UNK TRANSFERS: TUB: Activity did not occur on this shift TRANSFERS: TUB - SCORE: 0-UNK LOCOMOTION: WALK: Activity did not occur on this shift LOCOMOTION: WALK - SCORE: 0-UNK LOCOMOTION: WHEELCHAIR: Activity did not occur on this shift LOCOMOTION: WHEELCHAIR - SCORE: 0-UNK COMPREHENSION: COMPREHENSION: TYPE: Both COMPREHENSION - STEP 1: Does the patient require help from a person or device, or need extra time to understand complex and a bstract ideas (such as current events, finances, discharge planning, medical issues, relationships, e tc)? No. COMPREHENSION - STEP 2: Does the patient need extra time, require an assistive device (such as glasses for visual comprehensi on or a hearing aid for auditory comprehension) or does s/he have mild difficulty understanding compl ex and abstract information? Yes. COMPREHENSION - SCORE: 6-TRISTEN EXPRESSION EXPRESSION: TYPE: Both EXPRESSION - STEP 1: Does the patient require help from a person or device, or need extra time expressing complex and abst ract ideas (such as current events, finances, discharge planning, medical issues, relationships, etc) ? No. EXPRESSION - STEP 2: Does the patient need extra time, require an assistive device (such as augmentive communication syste m or a communication board), OR does s/he have mild difficulty expressing complex and abstract ideas (including mild dysarthria or mild word-find problems)? Yes. EXPRESSION - SCORE: 6-TRISTEN SOCIAL INTERACTION: SOCIAL INTERACTION - STEP 1: Does the patient require a helper to interact with others in social and therapeutic situations? No. SOCIAL INTERACTION - STEP 2: Does the patient need extra time in social situations, OR does s/he interact with staff, other patien ts, and family members ONLY in structured environments, OR does s/he require medication for social in teraction? Yes, patient needs extra time SOCIAL INTERACTION - SCORE: 6-TRISTEN PROBLEM SOLVING: PROBLEM SOLVING - STEP 1: Does the patient need help from a person or device, or need extra time to solve complex problems such as managing a checking account or confronting interpersonal problems? No. PROBLEM SOLVING - STEP 2: Does the patient require extra time to make decisions or solve problems, OR does s/he have slight dif ficulty reading, initiating, or self-correcting in unfamiliar situations? Yes, patient needs extra ti me. PROBLEM SOLVING - SCORE: 6-TRISTEN MEMORY: MEMORY - STEP 1: Does the patient need help from a person or device, or need extra time to remember frequently encount ered people, daily routines, and executing requests? No. MEMORY - STEP 2: Does the patient have slight difficulty recognizing frequently encountered people, daily routines, or executing requests without the need for repetition or using self-initiated or environmental cues to remember? Yes. MEMORY - SCORE: 6-TRISTEN SIGNATURE PANEL: The following modified sections: Eating - Score, Grooming - Score, Bathing - Score, Dressing - Upper Body - Score, Dressing - Lower Body - Score, Toileting - Score, Bladder Management - Score, Bowel Man agement - Score, Transfers: Bed, Chair, Wheelchair - Score, Transfers: Toilet - Score, Transfers: Zahra wer - Score, Transfers: Tub - Score, Locomotion: Walk - Score, Locomotion: Wheelchair - Score, Compre hension - Score, Expression - Score, Social Interaction - Score, Problem Solving - Score, Memory - Sc ore were [electronically] signed by Ely Verma C.N.Arianne on MonJan 10 2018 14:19:07 GMT-0600 (Centra [place] Standard Time)
--- NOTE | 2018-01-10 16:57 | R.PN ---
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 SUBJECTIVE: Pt denied any depression. Pt denied any Shortness of Breath. Ambulated 1500' with standby assistance without an assistive device. Up and down 15 steps with contac t guard assistance. VITAL SIGNS Temperature: 97.5 F SBP/DBP: 148/57 Pulse: 70 Resp: 16 Improved blood pressure control after increasing Amlodipine to 10 mg daily. MEDICATION ALLERGIES: No Known Drug Allergies (NKDA) ENVIRONMENTAL ALLERGIES: None Known - Substance Allergies None Known - Other Allergies None Known NURSING: - Shower allowing shower - Bladder care per protocol - Skin care per protocol PRECAUTIONS: - Weight Bearing Precaution WBAT left LE ACTIVITIES OOB only with supervision THERAPIES: - Occupational Therapy Evaluate and Treat. Visual Perceptual Training. Cognitive Retraining. - Speech Therapy Cognitive Training. Memory Strategies. Speech Intelligibility Training. Expressive Language Skills. R eceptive Language Skills. - Physical Therapy Evaluate and Treat. PHYSICAL EXAM - Gen Alert and awake Lying in bed No apparent distress Oriented to: person, time, and place - Skin No skin breakdown. Normacephalic - Eyes No abnormalities - ENMT No abnormalities - Neck No abnormalities - CVS RRR - Chest Clear - Abd + bowel sounds - GI Non tender Deferred - No abnormalities - Ext No significant edema - MSK 4+/5 weakness in left upper and lower extremity - Neuro 4/5 strength left upper and lower extremities. - Psych No abnormalities ASSESSMENT: Pt. is a 82 yo Right-handed ,female.On 12/27/2017 Pt. presented to [facility] with sudden onset of left-side weakness.On 12/27/2017 she was admitted to [facility] with diagnosis RIGHT CVA.her impairment category is Stroke 01 - Left Body (Right Brain) (01.1).Pre-morbidly, Pt. was independent/mod-I in Transfers Control, Communication, Social Cognition , Self-Care, Locomotion, and Sphincter Control; and she had good Sphincter Control.Currently, she has deficits of Transfers Control, Balance, Locomotion, Endurance, Safety Awareness, and Self-Care.Pt. i s now referred to [facility] for acute in-patient rehabilitation in order to m aximize patient's functional independence in activities of daily living, strength, ROM, and mobility. - Rehab Goal Patient has realistic goal of being discharged at assistance level 6-Rosalind to reside at Home with Fam wenceslao/Relatives. MDM/PLAN: - Physical Therapy Gait dysfunction - to improve, our physical therapists will perform initial evaluation of pt's statu s upon admission and devise an individualized program for Gait Training, and Wheel Chair mobility Inability to transfer - to improve, our physical therapists will perform initial evaluation of pt's status upon admission and devise an individualized program for Bed mobility Need for home safety evaluation - to improve, our physical therapists will perform initial evaluatio n of pt's status upon admission and devise an individualized program for Home Evaluation Need in caregiver upon discharge - to improve, our physical therapists will perform initial evaluati on of pt's status upon admission and devise an individualized program for Caregiver Training Edema - to improve, our physical therapists will perform initial evaluation of pt's status upon admi ssion and devise an individualized program for Elevation Training, and Lymphedema Therapy New precaution - to improve, our physical therapists will perform initial evaluation of pt's status upon admission and devise an individualized program for Patient precaution education Poor balance - to improve, our physical therapists will perform initial evaluation of pt's status up on admission and devise an individualized program for Balance Training Poor endurance - to improve, our physical therapists will perform initial evaluation of pt's status upon admission and devise an individualized program for Endurance Training Weakness - to improve, our physical therapists will perform initial evaluation of pt's status upon a dmission and devise an individualized program for Aquatic Therapy, Neuromuscular Reeducation, and Str engthening Achieving independence - to improve, our physical therapists will perform initial evaluation of pt's status upon admission and devise an individualized program for Community Reintegration Activities - Occupational Therapy ADL deficits - to improve, our occupation therapists will perform initial evaluation of pt's status upon admission and devise an individualized program for Bathing, Bed mobility, Community Reintegratio n, Cooking, Dressing, Eating, Fine Motor Skills, Grooming, Homemaking, Kitchen Mobility, Laundry, Pat ient Education, Safety Awareness, Splinting - Positioning, Transfers(Toilet, Tub, Shower), and Wheel Chair Management Need for chiropractic care - to improve, our occupation therapists will perform initial evaluation of pt's status upon admission and devise an individualized program for Caregiver Training Weakness - to improve, our occupation therapists will perform initial evaluation of pt's status upon admission and devise an individualized program for Aquatic Therapy, Balance, Endurance, UE ROM, and UE strengthening - Diet Type Continue Regular - Diet - Liquid Texture Continue Regular - Tube Feed Continue N/A - Bladder care per protocol - Weight Bearing Precaution WBAT left LE - Skin care per protocol - Diet - Solid Texture Continue Regular - Shower allowing shower for Dementia, TBI, Stroke, or others FUNCTIONAL STATUS: UPDATED AT WEEKLY TEAM CONFERENCE - Bladder Same accident frequency: 7-Ind - No accidents in the past 7 days - Bowel Same accident frequency: 7-Ind - No accidents in the past 7 days - Walking Same score based on distance walked: 3(>=150ft) - Wheelchair Same score based on distance traveled: 0(N/A) FUNCTIONAL STATUS: - Self-Care A. Eating Ind B. Grooming sup C. Bathing sup D. Dressing - Upper sup E. Dressing - Lower sup F. Toileting sup - Sphincter Control G: Bladder control Ind H: Bowel control Ind - Transfers Control I. Bed/Chair/Wheelchair modA J. Toilet modA K. Tub/Shower ADNO - Locomotion L. Walk/Wheelchair (C) modA L. Walk/Wheelchair (W) modA M. Stairs ADNO - Communication N. Comprehension (B) Ind O. Expression (B) Ind - Social Cognition P. Social Interaction Ind Q. Problem Solving Ind R. Memory Ind - Endurance Fair - Balance Fair - Safety Awareness Fair CURRENT FUNC. DEFICITS: Transfers Control, Balance, Locomotion, Endurance, Safety Awareness, and Self-Care SIGNATURE PANEL: (HOME CARE ASSOCIATE)
[2018-01-10] MEDS: ATORVASTATIN 40 MG TAB PO SCH (20:35)
[2018-01-10] MEDS: LOSARTAN POTASSIUM 50 MG TABLET PO SCH (20:35)
--- NOTE | 2018-01-11 05:36 | FAST ---
ENCOUNTER PHYSICIAN: Dr. Conrado Hunter M.D. TOILETING: TOILETING - STEP 1: Does the patient require the assistance of a person or device, or need extra time with toileting? Yes . TOILETING - STEP 2: Does the patient require the assistance of a helper? Yes. TOILETING - STEP 3: How much assistance does the patient require from the helper? Hands-on assistance from the helper TOILETING - STEP 4: Of the 3 tasks: 1) Adjusting clothing prior to use, 2) Cleansing of perineal area, 3) Adjusting clot elizabeth after use; How many tasks does the patient perform WITHOUT assistance of the helper? Two tasks TOILETING - SCORE: 3-MOD BLADDER MANAGEMENT: BLADDER MANAGEMENT - STEP 1: Does the patient control the bladder completely and intentionally without equipment or devices or med ications, and is always continent? No. BLADDER MANAGEMENT - STEP 2: Does the patient require the assistance of a helper? Yes. BLADDER MANAGEMENT - STEP 3: How much assistance does the patient require from the helper? Only supervision, stand-by, cuing, or c oaxing BLADDER MANAGEMENT - SCORE: 5-SUP BLADDER MANAGEMENT - FREQUENCY OF ACCIDENTS: BLADDER MANAGEMENT(FA) - STEP 1: How many accidents has the patient had during the current shift? 0 BOWEL MANAGEMENT: BOWEL MANAGEMENT - STEP 1: Does the patient control bowels completely and intentionally without equipment devices or medications AND is always continent? Yes. BOWEL MANAGEMENT - SCORE: 7-IND BOWEL MANAGEMENT - FREQUENCY OF ACCIDENTS: BOWEL MANAGEMENT(FA) - STEP 1: How many accidents has the patient had during the current shift? 0 TRANSFERS: BED, CHAIR, WHEELCHAIR: TRANSFERS: BED, CHAIR, WHEELCHAIR - STEP 1: Does the patient require assitance of a person or device, or need extra time with bed, chair, or whee lchair transfers? Yes. TRANSFERS: BED, CHAIR, WHEELCHAIR - STEP 2: Does the patient require the assistance of a helper? Yes. TRANSFERS: BED, CHAIR, WHEELCHAIR - STEP 3: How much assistance does the patient require from the helper? Lifting of the legs TRANSFERS: BED, CHAIR, WHEELCHAIR - STEP 4: How many legs does the patient require the helper to lift? both legs TRANSFERS: BED, CHAIR, WHEELCHAIR - SCORE: 3-MOD TRANSFERS: TOILET: TRANSFERS: TOILET - STEP 1: Does the patient require the assistance of a person or device, or need extra time with toilet transfe rs? Yes. TRANSFERS: TOILET - STEP 2: Does the patient require the assistance of a helper? Yes. TRANSFERS: TOILET - STEP 3: How much assistance does the patient require from the helper? Patient performs half or more of the tr ansferring tasks TRANSFERS: TOILET - STEP 4: Does the patient need only incidental help such as contact guard or steadying during toilet transfer? Yes. TRANSFERS: TOILET - SCORE: 4-MIN COMPREHENSION: COMPREHENSION: TYPE: Both COMPREHENSION - STEP 1: Does the patient require help from a person or device, or need extra time to understand complex and a bstract ideas (such as current events, finances, discharge planning, medical issues, relationships, e tc)? Yes. COMPREHENSION - STEP 2: Does the patient require help to understand questions or statements about basic needs or ideas (such as hunger, thirst, sleep, safety, daily schedule, room location, or discomfort) half or more of the t clementina? No. COMPREHENSION - STEP 3: How often does the patient need help to understand directions and conversation about basic needs? Les s than 10% of the time COMPREHENSION - SCORE: 5-SUP EXPRESSION EXPRESSION: TYPE: Both EXPRESSION - STEP 1: Does the patient require help from a person or device, or need extra time expressing complex and abst ract ideas (such as current events, finances, discharge planning, medical issues, relationships, etc) ? No. EXPRESSION - STEP 2: Does the patient need extra time, require an assistive device (such as augmentive communication syste m or a communication board), OR does s/he have mild difficulty expressing complex and abstract ideas (including mild dysarthria or mild word-find problems)? No. EXPRESSION - SCORE: 7-IND SOCIAL INTERACTION: SOCIAL INTERACTION - STEP 1: Does the patient require a helper to interact with others in social and therapeutic situations? No. SOCIAL INTERACTION - STEP 2: Does the patient need extra time in social situations, OR does s/he interact with staff, other patien ts, and family members ONLY in structured environments, OR does s/he require medication for social in teraction? Yes, patient needs extra time SOCIAL INTERACTION - SCORE: 6-TRISTEN PROBLEM SOLVING: PROBLEM SOLVING - STEP 1: Does the patient need help from a person or device, or need extra time to solve complex problems such as managing a checking account or confronting interpersonal problems? Yes. PROBLEM SOLVING - STEP 2: Does the patient solve basic routine problems half or more of the time? Yes. PROBLEM SOLVING - STEP 3: How often does the patient need help to solve basic routine problems? Less than 10% of the time PROBLEM SOLVING - SCORE: 5-SUP MEMORY: MEMORY - STEP 1: Does the patient need help from a person or device, or need extra time to remember frequently encount ered people, daily routines, and executing requests? Yes. MEMORY - STEP 2: How often does the patient need help to remember frequently encountered people, daily routines, and e xecuting requests? Less than 10% of the time MEMORY - SCORE: 5-SUP SIGNATURE PANEL: The following modified sections: Toileting - Score, Bladder Management - Score, Bowel Management - Sc ore, Transfers: Bed, Chair, Wheelchair - Score, Transfers: Toilet - Score, Comprehension - Score, Exp ression - Score, Social Interaction - Score, Problem Solving - Score, Memory - Score were [electronic ally] signed by Dalila Marin on MonJan 11 2018 05:35:33 GMT-0600 (Central Standard Time)
[2018-01-11 07:03] LABS: Absolute Lymphocytes (CBC) 1.9 K/uL (0.7-4.9); Absolute Monocytes 0.5 K/uL (0.1-1.3); Absolute Neutrophil 3.8 K/uL (1.8-8.0); Basophils % 0.4 % (0-1.3); Eosinophils % 2.6 % (0-4.4); Hematocrit 37.8 % (36.0-45.0); Lymphocytes % 29.5 % (15.3-44.8); MCV 89.4 fL (80-100); MPV 8.5 fL (7.6-11.3); Monocytes % 8.6 % (3.3-12.3); RBC Red Blood Cell Count 4.23 M/uL (3.86-4.86)
[2018-01-11 07:04] LABS: Albumin 3.4 g/dL (3.4-5.0); BUN Blood Urea Nitrogen 17 mg/dL (7-18); Bicarbonate 28 mmol/L (21-32); Glucose Level 98 mg/dL (74-106); Magnesium 2.4 mg/dL (1.8-2.4); Potassium 3.9 mmol/L (3.5-5.1); Prealbumin 30.6 mg/dL (20-40); Sodium Level 141 mmol/L (136-145)
[2018-01-11] MEDS: FOLIC ACID 1 MG TABLET PO SCH (08:12)
[2018-01-11] MEDS: AMLODIPINE 5 MG TAB PO SCH (08:13)
[2018-01-11] MEDS: CLOPIDOGREL 75 MG TABLET PO SCH (08:13)
[2018-01-11] MEDS: ASPIRIN EC 81 MG TAB PO SCH (08:13)
[2018-01-11] MEDS: ENOXAPARIN 40 MG/0.4 ML SQ SCH (08:14)
--- NOTE | 2018-01-11 16:01 | FAST ---
ENCOUNTER DATE AND TIME: 01/10/2018 08:00 (PRODUCTION EDITOR) NAME AMY WOMACK DATE OF : 1935 DATE OF ADMISSION: 12/30/2017 18:22 (PRODUCTION EDITOR) PHONE: AGE: 82 SSN# [id number] ENCOUNTER PHYSICIAN: Dr. Conrado Hunter M.D. 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 EATING: Activity did not occur on this shift EATING - SCORE: 0-UNK GROOMING: Activity did not occur on this shift GROOMING - SCORE: 0-UNK BATHING: Activity did not occur on this shift BATHING - SCORE: 0-UNK DRESSING - UPPER BODY: Activity did not occur on this shift Patient is not dressing in public clothing ARTICLES SCORE Total number of steps: 0 DRESSING - UPPER BODY - SCORE: 0-UNK DRESSING - LOWER BODY: Activity did not occur on this shift Patient is not dressing in public clothing ARTICLES SCORE Total number of steps: 0 DRESSING - LOWER BODY - SCORE: 0-UNK TOILETING: Activity did not occur on this shift TOILETING - SCORE: 0-UNK BLADDER MANAGEMENT: Activity did not occur on this shift BLADDER MANAGEMENT - SCORE: 7-IND BOWEL MANAGEMENT: Activity did not occur on this shift BOWEL MANAGEMENT - SCORE: 7-IND TRANSFERS: BED, CHAIR, WHEELCHAIR: TRANSFERS: BED, CHAIR, WHEELCHAIR - STEP 1: Does the patient require assitance of a person or device, or need extra time with bed, chair, or whee lchair transfers? Yes. TRANSFERS: BED, CHAIR, WHEELCHAIR - STEP 2: Does the patient require the assistance of a helper? Yes. TRANSFERS: BED, CHAIR, WHEELCHAIR - STEP 3: How much assistance does the patient require from the helper? Only supervision TRANSFERS: BED, CHAIR, WHEELCHAIR - SCORE: 5-SUP TRANSFERS: TOILET: Activity did not occur on this shift TRANSFERS: TOILET - SCORE: 0-UNK TRANSFERS: SHOWER: Activity did not occur on this shift TRANSFERS: SHOWER - SCORE: 0-UNK TRANSFERS: TUB: Activity did not occur on this shift TRANSFERS: TUB - SCORE: 0-UNK LOCOMOTION: WALK: LOCOMOTION: WALK - STEP 1: Does the patient need help from a person or device, or need extra time to walk 150 feet? Yes. LOCOMOTION: WALK - STEP 2: How much assistance does the patient require to walk a minimum of 150 feet? Only supervision, cuing, or coaxing LOCOMOTION: WALK - SCORE: 5-SUP LOCOMOTION: WHEELCHAIR: LOCOMOTION: WHEELCHAIR - STEP 1: Does the patient need help to go 150 feet in a wheelchair? Yes. LOCOMOTION: WHEELCHAIR - STEP 2: How much assistance does the patient need from the helper? Only supervision, cuing, or coaxing LOCOMOTION: WHEELCHAIR - SCORE: 5-SUP LOCOMOTION: STAIRS: LOCOMOTION: STAIRS - STEP 1: Does the patient need help to go up and down 12 to 14 stairs? Yes. LOCOMOTION: STAIRS - STEP 2: How much assistance does the patient need from the helper to go a minimum of 12 to 14 stairs? Only winslow pervision, cuing, or coaxing LOCOMOTION: STAIRS - SCORE: 5-SUP COMPREHENSION: COMPREHENSION - SCORE: 0-UNK EXPRESSION EXPRESSION - SCORE: 0-UNK SOCIAL INTERACTION: SOCIAL INTERACTION - SCORE: 0-UNK PROBLEM SOLVING: PROBLEM SOLVING - SCORE: 0-UNK MEMORY: MEMORY - SCORE: 0-UNK SIGNATURE PANEL: The following modified sections: Transfers: Bed, Chair, Wheelchair - Score, Transfers: Toilet - Score , Locomotion: Walk - Score, Locomotion: Wheelchair - Score, Locomotion: Stairs - Score were [von franks] signed by Arturo Yeboah PTA on MonJan 11 2018 16:00:44 GMT-0600 (Central Standard Time)
--- NOTE | 2018-01-11 16:02 | FAST ---
ENCOUNTER DATE AND TIME: 01/11/2018 08:00 (CYBER LEGAL ADVISOR) NAME AMY WOMACK DATE OF : 1935 DATE OF ADMISSION: 12/30/2017 18:22 (CYBER LEGAL ADVISOR) PHONE: AGE: 82 SSN# [id number] ENCOUNTER PHYSICIAN: Dr. Conrado Hunter M.D. 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 EATING: Activity did not occur on this shift EATING - SCORE: 0-UNK GROOMING: Activity did not occur on this shift GROOMING - SCORE: 0-UNK BATHING: Activity did not occur on this shift BATHING - SCORE: 0-UNK DRESSING - UPPER BODY: Activity did not occur on this shift Patient is not dressing in public clothing ARTICLES SCORE Total number of steps: 0 DRESSING - UPPER BODY - SCORE: 0-UNK DRESSING - LOWER BODY: Activity did not occur on this shift Patient is not dressing in public clothing ARTICLES SCORE Total number of steps: 0 DRESSING - LOWER BODY - SCORE: 0-UNK TOILETING: Activity did not occur on this shift TOILETING - SCORE: 0-UNK BLADDER MANAGEMENT: Activity did not occur on this shift BLADDER MANAGEMENT - SCORE: 7-IND BOWEL MANAGEMENT: Activity did not occur on this shift BOWEL MANAGEMENT - SCORE: 7-IND TRANSFERS: BED, CHAIR, WHEELCHAIR: TRANSFERS: BED, CHAIR, WHEELCHAIR - STEP 1: Does the patient require assitance of a person or device, or need extra time with bed, chair, or whee lchair transfers? Yes. TRANSFERS: BED, CHAIR, WHEELCHAIR - STEP 2: Does the patient require the assistance of a helper? No. Patient only requires an assistive device fo r bed, chair, wheelchair transfers such as a sliding board, grab bar, or brace, OR s/he takes more th an reasonable time, OR there is a safety concern when s/he performs the transfers TRANSFERS: BED, CHAIR, WHEELCHAIR - SCORE: 6-TRISTEN TRANSFERS: TOILET: Activity did not occur on this shift TRANSFERS: TOILET - SCORE: 0-UNK TRANSFERS: SHOWER: Activity did not occur on this shift TRANSFERS: SHOWER - SCORE: 0-UNK TRANSFERS: TUB: Activity did not occur on this shift TRANSFERS: TUB - SCORE: 0-UNK LOCOMOTION: WALK: LOCOMOTION: WALK - STEP 1: Does the patient need help from a person or device, or need extra time to walk 150 feet? No. LOCOMOTION: WALK - STEP 2: Does the patient need an assistive device (such as an orthosis, prosthesis, crutches, or walker) to g o 150 feet, OR does s/he take more than reasonable time, OR is there a concern for safety? Yes, the p atient needs an assistive device LOCOMOTION: WALK - SCORE: 6-TRISTEN LOCOMOTION: WHEELCHAIR: LOCOMOTION: WHEELCHAIR - STEP 1: Does the patient need help to go 150 feet in a wheelchair? Yes. LOCOMOTION: WHEELCHAIR - STEP 2: How much assistance does the patient need from the helper? Only supervision, cuing, or coaxing LOCOMOTION: WHEELCHAIR - SCORE: 5-SUP LOCOMOTION: STAIRS: LOCOMOTION: STAIRS - STEP 1: Does the patient need help to go up and down 12 to 14 stairs? No. LOCOMOTION: STAIRS - STEP 2: Does the patient require an assistive device - such as handrails or cane - to go up and down one flig ht of stairs, OR does s/he take more than reasonable time, OR is there a concern for safety? Yes, the patient requires an assistive device LOCOMOTION: STAIRS - SCORE: 6-TRISTEN COMPREHENSION: COMPREHENSION - SCORE: 0-UNK EXPRESSION EXPRESSION - SCORE: 0-UNK SOCIAL INTERACTION: SOCIAL INTERACTION - SCORE: 0-UNK PROBLEM SOLVING: PROBLEM SOLVING - SCORE: 0-UNK MEMORY: MEMORY - SCORE: 0-UNK SIGNATURE PANEL: The following modified sections: Transfers: Bed, Chair, Wheelchair - Score, Transfers: Toilet - Score , Locomotion: Walk - Score, Locomotion: Wheelchair - Score, Locomotion: Stairs - Score were [von franks] signed by Arturo Yeboah PTA on MonJan 11 2018 16:01:57 GMT-0600 (Central Standard Time)
--- NOTE | 2018-01-11 18:23 | R.PN ---
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 SUBJECTIVE: Pt denied any depression. Pt denied any Shortness of Breath. Ambulated 1750' with modified independence without an assistive device. Up and down 15 steps with mod ified independence. VITAL SIGNS Temperature: 98.2 F SBP/DBP: 148/69 Pulse: 70 Resp: 16 Improved blood pressure control after increasing Amlodipine to 10 mg daily. MEDICATION ALLERGIES: No Known Drug Allergies (NKDA) ENVIRONMENTAL ALLERGIES: None Known - Substance Allergies None Known - Other Allergies None Known NURSING: - Shower allowing shower - Bladder care per protocol - Skin care per protocol PRECAUTIONS: - Weight Bearing Precaution WBAT left LE ACTIVITIES OOB only with supervision THERAPIES: - Occupational Therapy Evaluate and Treat. Visual Perceptual Training. Cognitive Retraining. - Speech Therapy Cognitive Training. Memory Strategies. Speech Intelligibility Training. Expressive Language Skills. R eceptive Language Skills. - Physical Therapy Evaluate and Treat. PHYSICAL EXAM - Gen Alert and awake Lying in bed No apparent distress Oriented to: person, time, and place - Skin No skin breakdown. Normacephalic - Eyes No abnormalities - ENMT No abnormalities - Neck No abnormalities - CVS RRR - Chest Clear - Abd + bowel sounds - GI Non tender Deferred - No abnormalities - Ext No significant edema - MSK 4+/5 weakness in left upper and lower extremity - Neuro 4/5 strength left upper and lower extremities. - Psych No abnormalities ASSESSMENT: Pt. is a 82 yo Right-handed ,female.On 12/27/2017 Pt. presented to [facility] with sudden onset of left-side weakness.On 12/27/2017 she was admitted to [facility] with diagnosis RIGHT CVA.her impairment category is Stroke 01 - Left Body (Right Brain) (01.1).Pre-morbidly, Pt. was independent/mod-I in Transfers Control, Communication, Social Cognition , Self-Care, Locomotion, and Sphincter Control; and she had good Sphincter Control.Currently, she has deficits of Transfers Control, Balance, Locomotion, Endurance, Safety Awareness, and Self-Care.Pt. i s now referred to [facility] for acute in-patient rehabilitation in order to m aximize patient's functional independence in activities of daily living, strength, ROM, and mobility. - Rehab Goal Patient has realistic goal of being discharged at assistance level 6-Rosalind to reside at Home with Fam wenceslao/Relatives. MDM/PLAN: - Physical Therapy Gait dysfunction - to improve, our physical therapists will perform initial evaluation of pt's statu s upon admission and devise an individualized program for Gait Training, and Wheel Chair mobility Inability to transfer - to improve, our physical therapists will perform initial evaluation of pt's status upon admission and devise an individualized program for Bed mobility Need for home safety evaluation - to improve, our physical therapists will perform initial evaluatio n of pt's status upon admission and devise an individualized program for Home Evaluation Need in caregiver upon discharge - to improve, our physical therapists will perform initial evaluati on of pt's status upon admission and devise an individualized program for Caregiver Training Edema - to improve, our physical therapists will perform initial evaluation of pt's status upon admi ssion and devise an individualized program for Elevation Training, and Lymphedema Therapy New precaution - to improve, our physical therapists will perform initial evaluation of pt's status upon admission and devise an individualized program for Patient precaution education Poor balance - to improve, our physical therapists will perform initial evaluation of pt's status up on admission and devise an individualized program for Balance Training Poor endurance - to improve, our physical therapists will perform initial evaluation of pt's status upon admission and devise an individualized program for Endurance Training Weakness - to improve, our physical therapists will perform initial evaluation of pt's status upon a dmission and devise an individualized program for Aquatic Therapy, Neuromuscular Reeducation, and Str engthening Achieving independence - to improve, our physical therapists will perform initial evaluation of pt's status upon admission and devise an individualized program for Community Reintegration Activities - Occupational Therapy ADL deficits - to improve, our occupation therapists will perform initial evaluation of pt's status upon admission and devise an individualized program for Bathing, Bed mobility, Community Reintegratio n, Cooking, Dressing, Eating, Fine Motor Skills, Grooming, Homemaking, Kitchen Mobility, Laundry, Pat ient Education, Safety Awareness, Splinting - Positioning, Transfers(Toilet, Tub, Shower), and Wheel Chair Management Need for care center manager - to improve, our occupation therapists will perform initial evaluation of pt's status upon admission and devise an individualized program for Caregiver Training Weakness - to improve, our occupation therapists will perform initial evaluation of pt's status upon admission and devise an individualized program for Aquatic Therapy, Balance, Endurance, UE ROM, and UE strengthening - Diet Type Continue Regular - Diet - Liquid Texture Continue Regular - Tube Feed Continue N/A - Bladder care per protocol - Weight Bearing Precaution WBAT left LE - Skin care per protocol - Diet - Solid Texture Continue Regular - Shower allowing shower for Dementia, TBI, Stroke, or others FUNCTIONAL STATUS: UPDATED AT WEEKLY TEAM CONFERENCE - Bladder Same accident frequency: 7-Ind - No accidents in the past 7 days - Bowel Same accident frequency: 7-Ind - No accidents in the past 7 days - Walking Same score based on distance walked: 3(>=150ft) - Wheelchair Same score based on distance traveled: 0(N/A) FUNCTIONAL STATUS: - Self-Care A. Eating Ind B. Grooming sup C. Bathing sup D. Dressing - Upper sup E. Dressing - Lower sup F. Toileting sup - Sphincter Control G: Bladder control Ind H: Bowel control Ind - Transfers Control I. Bed/Chair/Wheelchair modA J. Toilet modA K. Tub/Shower ADNO - Locomotion L. Walk/Wheelchair (C) modA L. Walk/Wheelchair (W) modA M. Stairs ADNO - Communication N. Comprehension (B) Ind O. Expression (B) Ind - Social Cognition P. Social Interaction Ind Q. Problem Solving Ind R. Memory Ind - Endurance Fair - Balance Fair - Safety Awareness Fair CURRENT FUNC. DEFICITS: Transfers Control, Balance, Locomotion, Endurance, Safety Awareness, and Self-Care SIGNATURE PANEL: (CHIEF TRANSFER AND PUMPHOUSE OPERATOR)
[2018-01-11] MEDS: ATORVASTATIN 40 MG TAB PO SCH (20:03)
[2018-01-11] MEDS: LOSARTAN POTASSIUM 50 MG TABLET PO SCH (20:03)
[2018-01-12] MEDS: AMLODIPINE 5 MG TAB PO SCH (08:01)
[2018-01-12] MEDS: ENOXAPARIN 40 MG/0.4 ML SQ SCH (08:01)
[2018-01-12] MEDS: FOLIC ACID 1 MG TABLET PO SCH (08:01)
[2018-01-12] MEDS: ASPIRIN EC 81 MG TAB PO SCH (08:02)
[2018-01-12] MEDS: CLOPIDOGREL 75 MG TABLET PO SCH (08:02)
--- NOTE | 2018-01-12 09:38 | P.RH.PN ---
Estimated Length of Stay: 16 Expected Discharge Date: 01/13/18 Discharge Disposition Plan: Home Family Support: Yes [facility] Goal: Mobility, Transfers, Self Care Vital Signs: Last Vital Signs Temp 98.2 F 01/12/18 06:44 Pulse 74 01/12/18 08:01 Resp 16 01/12/18 06:44 BP 129/56 L 01/12/18 08:01 Pulse Ox 96 01/12/18 06:44 Laboratory: Laboratory Last Values WBC 6.4 K/uL (4.3-10.9) D 01/11/18 06:02 RBC 4.23 M/uL (3.86-4.86) 01/11/18 06:02 Hgb 13.1 g/dL (12.0-15.0) 01/11/18 06:02 Hct 37.8 % (36.0-45.0) 01/11/18 06:02 MCV 89.4 fL (80-100) 01/11/18 06:02 MCH 31.0 pg (27.0-35.0) 01/11/18 06:02 MCHC 34.7 g/dL (32.0-36.0) 01/11/18 06:02 RDW 13.5 % (12.1-15.2) 01/11/18 06:02 Plt Count 327 K/uL (152-406) 01/11/18 06:02 MPV 8.5 fL (7.6-11.3) 01/11/18 06:02 Neutrophils % 58.9 % (41.7-73.7) 01/11/18 06:02 Lymphocytes % 29.5 % (15.3-44.8) 01/11/18 06:02 Monocytes % 8.6 % (3.3-12.3) 01/11/18 06:02 Eosinophils % 2.6 % (0-4.4) 01/11/18 06:02 Basophils % 0.4 % (0-1.3) 01/11/18 06:02 Absolute Neutrophils 3.8 K/uL (1.8-8.0) 01/11/18 06:02 Absolute Lymphocytes 1.9 K/uL (0.7-4.9) 01/11/18 06:02 Absolute Monocytes 0.5 K/uL (0.1-1.3) 01/11/18 06:02 Absolute Eosinophils 0.2 K/uL (0-0.5) 01/11/18 06:02 Absolute Basophils 0.0 K/uL (0-0.5) 01/11/18 06:02 Sodium 141 mmol/L (136-145) 01/11/18 06:02 Potassium 3.9 mmol/L (3.5-5.1) 01/11/18 06:02 Chloride 106 mmol/L (98-107) 01/11/18 06:02 Carbon Dioxide 28 mmol/L (21-32) 01/11/18 06:02 BUN 17 mg/dL (7-18) 01/11/18 06:02 Creatinine 0.50 mg/dL (0.55-1.3) L 01/11/18 06:02 Estimated GFR > 90 mL/min (=/>90) 01/11/18 06:02 Glucose 98 mg/dL (74-106) 01/11/18 06:02 Calcium 8.5 mg/dL (8.5-10.1) 01/11/18 06:02 Magnesium 2.4 mg/dL (1.8-2.4) 01/11/18 06:02 Albumin 3.4 g/dL (3.4-5.0) 01/11/18 06:02 Prealbumin 30.6 mg/dL (20-40) 01/11/18 06:02 Weight: 136 lb 3.2 oz Wound Present: No Closed Surgical Incision Present: No Negative Pressure Wound Therapy Present: No Physician Update: Her labs have been reviewed and are all normal. She is independent with ambulation, she is modified independent with stairs. She is modified independent with occupational therapy and supervision for cognitive functioning. She is on a regular ADA diet. Discharge in the AM. Medication Issues: DVT Prophylaxis- Lovenox 40mg SQ Daily Pain Issues: Tylenol 500mg Q6H PRN Functional Improvement: Patient has met all short-term goals at this time, and is progressing well w/ long-term goals. Patient is currently Mod I w/ transfers and gait tx. Summary: Patient's care plan and intermediate designer goals have been reviewed and revised as necessary. Please see the Rehabilitation Signature page for all necessary signatures.
--- NOTE | 2018-01-12 13:26 | FAST ---
SHIFT START DATE/TIME: 01/11/2018 07:00 (HEALTH CARE LIAISON) SHIFT END DATE/TIME: 01/11/2018 19:00 (HEALTH CARE LIAISON) NAME AMY WOMACK DATE OF : 1935 DATE OF ADMISSION: 12/30/2017 18:22 (HEALTH CARE LIAISON) PHONE: AGE: 82 SSN# [id number] ENCOUNTER PHYSICIAN: Dr. Conrado Hunter M.D. 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 EATING: EATING - STEP 1: Does the patient require the assistance of a person or device, or need extra time when eating? Yes. EATING - STEP 2: Does the patient require the assistance of a helper? Yes. EATING - STEP 3: Does the patient perform half or more of the eating tasks? Yes. EATING - STEP 4: Does the patient need only supervision, cuing, coaxing OR help to apply an orthosis OR help to cut fo od, open containers, pour liquids, or butter bread? Yes. EATING - SCORE: 5-SUP GROOMING: Comb/brush hair Wash, rinse, and dry face Wash, rinse, and dry hands GROOMING - STEP 1: Does the patient require the assistance of a person or device, or need extra time when grooming? Yes. GROOMING - STEP 2: Does the patient require the assistance of a helper? Yes. GROOMING - STEP 3: How much assistance does the patient require from the helper? Only prior equipment preparation/set up from the helper GROOMING - SCORE: 5-SUP BATHING: Activity did not occur on this shift BATHING - SCORE: 0-UNK DRESSING - UPPER BODY: Activity did not occur on this shift ARTICLES SCORE Total number of steps: 0 DRESSING - UPPER BODY - SCORE: 0-UNK DRESSING - LOWER BODY: Activity did not occur on this shift ARTICLES SCORE Total number of steps: 0 DRESSING - LOWER BODY - SCORE: 0-UNK TOILETING: TOILETING - STEP 1: Does the patient require the assistance of a person or device, or need extra time with toileting? Yes . TOILETING - STEP 2: Does the patient require the assistance of a helper? Yes. TOILETING - STEP 3: How much assistance does the patient require from the helper? Hands-on assistance from the helper TOILETING - STEP 4: Of the 3 tasks: 1) Adjusting clothing prior to use, 2) Cleansing of perineal area, 3) Adjusting clot elizabeth after use; How many tasks does the patient perform WITHOUT assistance of the helper? Three tasks with steadying assistance from the helper TOILETING - SCORE: 4-MIN BLADDER MANAGEMENT: BLADDER MANAGEMENT - STEP 1: Does the patient control the bladder completely and intentionally without equipment or devices or med ications, and is always continent? No. BLADDER MANAGEMENT - STEP 2: Does the patient require the assistance of a helper? Yes. BLADDER MANAGEMENT - STEP 3: How much assistance does the patient require from the helper? Only supervision, stand-by, cuing, or c oaxing BLADDER MANAGEMENT - SCORE: 5-SUP BLADDER MANAGEMENT - FREQUENCY OF ACCIDENTS: BLADDER MANAGEMENT(FA) - STEP 1: How many accidents has the patient had during the current shift? 0 BOWEL MANAGEMENT: Activity did not occur on this shift BOWEL MANAGEMENT - SCORE: 7-IND BOWEL MANAGEMENT - FREQUENCY OF ACCIDENTS: BOWEL MANAGEMENT(FA) - STEP 1: How many accidents has the patient had during the current shift? 0 TRANSFERS: BED, CHAIR, WHEELCHAIR: TRANSFERS: BED, CHAIR, WHEELCHAIR - STEP 1: Does the patient require assitance of a person or device, or need extra time with bed, chair, or whee lchair transfers? Yes. TRANSFERS: BED, CHAIR, WHEELCHAIR - STEP 2: Does the patient require the assistance of a helper? Yes. TRANSFERS: BED, CHAIR, WHEELCHAIR - STEP 3: How much assistance does the patient require from the helper? Steadying/guiding assistance TRANSFERS: BED, CHAIR, WHEELCHAIR - SCORE: 4-MIN TRANSFERS: TOILET: TRANSFERS: TOILET - STEP 1: Does the patient require the assistance of a person or device, or need extra time with toilet transfe rs? Yes. TRANSFERS: TOILET - STEP 2: Does the patient require the assistance of a helper? Yes. TRANSFERS: TOILET - STEP 3: How much assistance does the patient require from the helper? Patient performs half or more of the tr ansferring tasks TRANSFERS: TOILET - STEP 4: Does the patient need only incidental help such as contact guard or steadying during toilet transfer? Yes. TRANSFERS: TOILET - SCORE: 4-MIN TRANSFERS: SHOWER: Activity did not occur on this shift TRANSFERS: SHOWER - SCORE: 0-UNK TRANSFERS: TUB: Activity did not occur on this shift TRANSFERS: TUB - SCORE: 0-UNK LOCOMOTION: WALK: Activity did not occur on this shift LOCOMOTION: WALK - SCORE: 0-UNK LOCOMOTION: WHEELCHAIR: Activity did not occur on this shift LOCOMOTION: WHEELCHAIR - SCORE: 0-UNK COMPREHENSION: COMPREHENSION: TYPE: Both COMPREHENSION - STEP 1: Does the patient require help from a person or device, or need extra time to understand complex and a bstract ideas (such as current events, finances, discharge planning, medical issues, relationships, e tc)? No. COMPREHENSION - STEP 2: Does the patient need extra time, require an assistive device (such as glasses for visual comprehensi on or a hearing aid for auditory comprehension) or does s/he have mild difficulty understanding compl ex and abstract information? Yes. COMPREHENSION - SCORE: 6-TRISTEN EXPRESSION EXPRESSION: TYPE: Both EXPRESSION - STEP 1: Does the patient require help from a person or device, or need extra time expressing complex and abst ract ideas (such as current events, finances, discharge planning, medical issues, relationships, etc) ? No. EXPRESSION - STEP 2: Does the patient need extra time, require an assistive device (such as augmentive communication syste m or a communication board), OR does s/he have mild difficulty expressing complex and abstract ideas (including mild dysarthria or mild word-find problems)? Yes. EXPRESSION - SCORE: 6-TRISTEN SOCIAL INTERACTION: SOCIAL INTERACTION - STEP 1: Does the patient require a helper to interact with others in social and therapeutic situations? No. SOCIAL INTERACTION - STEP 2: Does the patient need extra time in social situations, OR does s/he interact with staff, other patien ts, and family members ONLY in structured environments, OR does s/he require medication for social in teraction? Yes, patient needs extra time SOCIAL INTERACTION - SCORE: 6-TRISTEN PROBLEM SOLVING: PROBLEM SOLVING - STEP 1: Does the patient need help from a person or device, or need extra time to solve complex problems such as managing a checking account or confronting interpersonal problems? No. PROBLEM SOLVING - STEP 2: Does the patient require extra time to make decisions or solve problems, OR does s/he have slight dif ficulty reading, initiating, or self-correcting in unfamiliar situations? Yes, patient needs extra ti me. PROBLEM SOLVING - SCORE: 6-TRISTEN MEMORY: MEMORY - STEP 1: Does the patient need help from a person or device, or need extra time to remember frequently encount ered people, daily routines, and executing requests? No. MEMORY - STEP 2: Does the patient have slight difficulty recognizing frequently encountered people, daily routines, or executing requests without the need for repetition or using self-initiated or environmental cues to remember? Yes. MEMORY - SCORE: 6-TRISTEN SIGNATURE PANEL: The following modified sections: Eating - Score, Bathing - Score, Dressing - Upper Body - Score, Dres sing - Lower Body - Score, Toileting - Score, Bladder Management - Score, Bowel Management - Score, T ransfers: Bed, Chair, Wheelchair - Score, Transfers: Toilet - Score, Transfers: Shower - Score, Trans fers: Tub - Score, Locomotion: Walk - Score, Locomotion: Wheelchair - Score, Comprehension - Score, E xpression - Score, Social Interaction - Score, Problem Solving - Score, Memory - Score, Grooming - Sc ore were [electronically] signed by Rosenda StallingsNBeba on MonJan 12 2018 13:26:26 GMT-0600 ([place])
--- NOTE | 2018-01-12 13:39 | FAST ---
SHIFT START DATE/TIME: 01/12/2018 07:00 (LOOM OPERATOR) SHIFT END DATE/TIME: 01/12/2018 19:00 (LOOM OPERATOR) NAME AMY WOMACK DATE OF : 1935 DATE OF ADMISSION: 12/30/2017 18:22 (LOOM OPERATOR) PHONE: AGE: 82 SSN# [id number] ENCOUNTER PHYSICIAN: Dr. Conrado Hunter M.D. 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 EATING: EATING - STEP 1: Does the patient require the assistance of a person or device, or need extra time when eating? Yes. EATING - STEP 2: Does the patient require the assistance of a helper? No, patient only requires an assistive device, O R s/he takes more than reasonable time to eat, OR there is a safety concern, OR s/he requires modifie d food consistency EATING - SCORE: 6-TRISTEN GROOMING: Comb/brush hair Wash, rinse, and dry face Wash, rinse, and dry hands GROOMING - STEP 1: Does the patient require the assistance of a person or device, or need extra time when grooming? Yes. GROOMING - STEP 2: Does the patient require the assistance of a helper? Yes. GROOMING - STEP 3: How much assistance does the patient require from the helper? Only prior equipment preparation/set up from the helper GROOMING - SCORE: 5-SUP BATHING: Activity did not occur on this shift BATHING - SCORE: 0-UNK DRESSING - UPPER BODY: Activity did not occur on this shift ARTICLES SCORE Total number of steps: 0 DRESSING - UPPER BODY - SCORE: 0-UNK DRESSING - LOWER BODY: Activity did not occur on this shift ARTICLES SCORE Total number of steps: 0 DRESSING - LOWER BODY - SCORE: 0-UNK TOILETING: TOILETING - STEP 1: Does the patient require the assistance of a person or device, or need extra time with toileting? Yes . TOILETING - STEP 2: Does the patient require the assistance of a helper? Yes. TOILETING - STEP 3: How much assistance does the patient require from the helper? Only supervision TOILETING - SCORE: 5-SUP BLADDER MANAGEMENT: BLADDER MANAGEMENT - STEP 1: Does the patient control the bladder completely and intentionally without equipment or devices or med ications, and is always continent? No. BLADDER MANAGEMENT - STEP 2: Does the patient require the assistance of a helper? Yes. BLADDER MANAGEMENT - STEP 3: How much assistance does the patient require from the helper? Only supervision, stand-by, cuing, or c oaxing BLADDER MANAGEMENT - SCORE: 5-SUP BLADDER MANAGEMENT - FREQUENCY OF ACCIDENTS: BLADDER MANAGEMENT(FA) - STEP 1: How many accidents has the patient had during the current shift? 0 BOWEL MANAGEMENT: BOWEL MANAGEMENT - STEP 1: Does the patient control bowels completely and intentionally without equipment devices or medications AND is always continent? Yes. BOWEL MANAGEMENT - SCORE: 7-IND BOWEL MANAGEMENT - FREQUENCY OF ACCIDENTS: BOWEL MANAGEMENT(FA) - STEP 1: How many accidents has the patient had during the current shift? 0 TRANSFERS: BED, CHAIR, WHEELCHAIR: TRANSFERS: BED, CHAIR, WHEELCHAIR - STEP 1: Does the patient require assitance of a person or device, or need extra time with bed, chair, or whee lchair transfers? Yes. TRANSFERS: BED, CHAIR, WHEELCHAIR - STEP 2: Does the patient require the assistance of a helper? Yes. TRANSFERS: BED, CHAIR, WHEELCHAIR - STEP 3: How much assistance does the patient require from the helper? Only supervision TRANSFERS: BED, CHAIR, WHEELCHAIR - SCORE: 5-SUP TRANSFERS: TOILET: TRANSFERS: TOILET - STEP 1: Does the patient require the assistance of a person or device, or need extra time with toilet transfe rs? Yes. TRANSFERS: TOILET - STEP 2: Does the patient require the assistance of a helper? Yes. TRANSFERS: TOILET - STEP 3: How much assistance does the patient require from the helper? Only supervision, cuing, coaxing, OR he lp to set out transfer equipment or to lock brakes and/or lift foot rests TRANSFERS: TOILET - SCORE: 5-SUP TRANSFERS: SHOWER: Activity did not occur on this shift TRANSFERS: SHOWER - SCORE: 0-UNK TRANSFERS: TUB: Activity did not occur on this shift TRANSFERS: TUB - SCORE: 0-UNK LOCOMOTION: WALK: Activity did not occur on this shift LOCOMOTION: WALK - SCORE: 0-UNK LOCOMOTION: WHEELCHAIR: Activity did not occur on this shift LOCOMOTION: WHEELCHAIR - SCORE: 0-UNK COMPREHENSION: COMPREHENSION: TYPE: Both COMPREHENSION - STEP 1: Does the patient require help from a person or device, or need extra time to understand complex and a bstract ideas (such as current events, finances, discharge planning, medical issues, relationships, e tc)? No. COMPREHENSION - STEP 2: Does the patient need extra time, require an assistive device (such as glasses for visual comprehensi on or a hearing aid for auditory comprehension) or does s/he have mild difficulty understanding compl ex and abstract information? Yes. COMPREHENSION - SCORE: 6-TRISTEN EXPRESSION EXPRESSION: TYPE: Both EXPRESSION - STEP 1: Does the patient require help from a person or device, or need extra time expressing complex and abst ract ideas (such as current events, finances, discharge planning, medical issues, relationships, etc) ? No. EXPRESSION - STEP 2: Does the patient need extra time, require an assistive device (such as augmentive communication syste m or a communication board), OR does s/he have mild difficulty expressing complex and abstract ideas (including mild dysarthria or mild word-find problems)? Yes. EXPRESSION - SCORE: 6-TRISTEN SOCIAL INTERACTION: SOCIAL INTERACTION - STEP 1: Does the patient require a helper to interact with others in social and therapeutic situations? No. SOCIAL INTERACTION - STEP 2: Does the patient need extra time in social situations, OR does s/he interact with staff, other patien ts, and family members ONLY in structured environments, OR does s/he require medication for social in teraction? Yes, patient needs extra time SOCIAL INTERACTION - SCORE: 6-TRISTEN PROBLEM SOLVING: PROBLEM SOLVING - STEP 1: Does the patient need help from a person or device, or need extra time to solve complex problems such as managing a checking account or confronting interpersonal problems? No. PROBLEM SOLVING - STEP 2: Does the patient require extra time to make decisions or solve problems, OR does s/he have slight dif ficulty reading, initiating, or self-correcting in unfamiliar situations? Yes, patient needs extra ti me. PROBLEM SOLVING - SCORE: 6-TRISTEN MEMORY: MEMORY - STEP 1: Does the patient need help from a person or device, or need extra time to remember frequently encount ered people, daily routines, and executing requests? No. MEMORY - STEP 2: Does the patient have slight difficulty recognizing frequently encountered people, daily routines, or executing requests without the need for repetition or using self-initiated or environmental cues to remember? Yes. MEMORY - SCORE: 6-TRISTEN SIGNATURE PANEL: The following modified sections: Eating - Score, Grooming - Score, Bathing - Score, Dressing - Upper Body - Score, Dressing - Lower Body - Score, Toileting - Score, Bladder Management - Score, Bowel Man agement - Score, Transfers: Bed, Chair, Wheelchair - Score, Transfers: Toilet - Score, Transfers: Zahra wer - Score, Transfers: Tub - Score, Locomotion: Walk - Score, Locomotion: Wheelchair - Score, Compre hension - Score, Expression - Score, Social Interaction - Score, Problem Solving - Score, Memory - Sc ore were [electronically] signed by Ely Verma C.N.A. on MonJan 12 2018 13:38:26 GMT-0600 (Cent[facility] Standard Time)
[2018-01-12] MEDS: ATORVASTATIN 40 MG TAB PO SCH (20:15)
[2018-01-12] MEDS: LOSARTAN POTASSIUM 50 MG TABLET PO SCH (20:15)
--- NOTE | 2018-01-13 02:43 | FAST ---
SHIFT START DATE/TIME: 01/12/2018 19:00 (TURFGRASS MANAGEMENT PROFESSOR) SHIFT END DATE/TIME: 01/13/2018 07:00 (TURFGRASS MANAGEMENT PROFESSOR) NAME AMY WOMACK DATE OF : 1935 DATE OF ADMISSION: 12/30/2017 18:22 (TURFGRASS MANAGEMENT PROFESSOR) PHONE: AGE: 82 SSN# [id number] ENCOUNTER PHYSICIAN: Dr. Conrado Hunter M.D. 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 EATING: Activity did not occur on this shift EATING - SCORE: 0-UNK GROOMING: Oral care Wash, rinse, and dry face Wash, rinse, and dry hands GROOMING - STEP 1: Does the patient require the assistance of a person or device, or need extra time when grooming? Yes. GROOMING - STEP 2: Does the patient require the assistance of a helper? Yes. GROOMING - STEP 3: How much assistance does the patient require from the helper? Only prior equipment preparation/set up from the helper GROOMING - SCORE: 5-SUP BATHING: Activity did not occur on this shift BATHING - SCORE: 0-UNK DRESSING - UPPER BODY: Patient is not dressing in public clothing ARTICLES SCORE Total number of steps: 0 DRESSING - UPPER BODY - SCORE: 0-UNK DRESSING - LOWER BODY: Patient is not dressing in public clothing ARTICLES SCORE Total number of steps: 0 DRESSING - LOWER BODY - SCORE: 0-UNK TOILETING: TOILETING - STEP 1: Does the patient require the assistance of a person or device, or need extra time with toileting? Yes . TOILETING - STEP 2: Does the patient require the assistance of a helper? Yes. TOILETING - STEP 3: How much assistance does the patient require from the helper? Hands-on assistance from the helper TOILETING - STEP 4: Of the 3 tasks: 1) Adjusting clothing prior to use, 2) Cleansing of perineal area, 3) Adjusting clot elizabeth after use; How many tasks does the patient perform WITHOUT assistance of the helper? No tasks; h elper performs all three tasks TOILETING - SCORE: 1-DEP BLADDER MANAGEMENT: Rembrandt removes incontinent device (Depends, pull ups, etc.); cleans the patient after accident / inco ntinent episode; and, applies new incontinent device. BLADDER MANAGEMENT - SCORE: 1-DEP BOWEL MANAGEMENT: Activity did not occur on this shift BOWEL MANAGEMENT - SCORE: 7-IND TRANSFERS: BED, CHAIR, WHEELCHAIR: Activity did not occur on this shift TRANSFERS: BED, CHAIR, WHEELCHAIR - SCORE: 0-UNK TRANSFERS: TOILET: Activity did not occur on this shift TRANSFERS: TOILET - SCORE: 0-UNK TRANSFERS: SHOWER: Activity did not occur on this shift TRANSFERS: SHOWER - SCORE: 0-UNK TRANSFERS: TUB: Activity did not occur on this shift TRANSFERS: TUB - SCORE: 0-UNK LOCOMOTION: WALK: Activity did not occur on this shift LOCOMOTION: WALK - SCORE: 0-UNK LOCOMOTION: WHEELCHAIR: Activity did not occur on this shift LOCOMOTION: WHEELCHAIR - SCORE: 0-UNK COMPREHENSION: COMPREHENSION: TYPE: Both COMPREHENSION - STEP 1: Does the patient require help from a person or device, or need extra time to understand complex and a bstract ideas (such as current events, finances, discharge planning, medical issues, relationships, e tc)? No. COMPREHENSION - STEP 2: Does the patient need extra time, require an assistive device (such as glasses for visual comprehensi on or a hearing aid for auditory comprehension) or does s/he have mild difficulty understanding compl ex and abstract information? Yes. COMPREHENSION - SCORE: 6-TRISTEN EXPRESSION EXPRESSION: TYPE: Both EXPRESSION - STEP 1: Does the patient require help from a person or device, or need extra time expressing complex and abst ract ideas (such as current events, finances, discharge planning, medical issues, relationships, etc) ? Yes. EXPRESSION - STEP 2: Does the patient require help to express basic necessities or ideas (such as hunger, thirst, sleep, s afety, daily schedule, room location, or discomfort) half or more of the time? No. EXPRESSION - STEP 3: How often does the patient need help to express directions and conversation about basic needs? Less t altamirano 10% of the time EXPRESSION - SCORE: 5-SUP SOCIAL INTERACTION: SOCIAL INTERACTION - STEP 1: Does the patient require a helper to interact with others in social and therapeutic situations? No. SOCIAL INTERACTION - STEP 2: Does the patient need extra time in social situations, OR does s/he interact with staff, other patien ts, and family members ONLY in structured environments, OR does s/he require medication for social in teraction? Yes, patient needs extra time SOCIAL INTERACTION - SCORE: 6-TRISTEN PROBLEM SOLVING: PROBLEM SOLVING - STEP 1: Does the patient need help from a person or device, or need extra time to solve complex problems such as managing a checking account or confronting interpersonal problems? Yes. PROBLEM SOLVING - STEP 2: Does the patient solve basic routine problems half or more of the time? Yes. PROBLEM SOLVING - STEP 3: How often does the patient need help to solve basic routine problems? Less than 10% of the time PROBLEM SOLVING - SCORE: 5-SUP MEMORY: MEMORY - STEP 1: Does the patient need help from a person or device, or need extra time to remember frequently encount ered people, daily routines, and executing requests? Yes. MEMORY - STEP 2: How often does the patient need help to remember frequently encountered people, daily routines, and e xecuting requests? Less than 10% of the time MEMORY - SCORE: 5-SUP
[2018-01-13] MEDS: ENOXAPARIN 40 MG/0.4 ML SQ SCH (07:21)
[2018-01-13] MEDS: AMLODIPINE 5 MG TAB PO SCH (08:21)
[2018-01-13] MEDS: ASPIRIN EC 81 MG TAB PO SCH (08:21)
[2018-01-13] MEDS: CLOPIDOGREL 75 MG TABLET PO SCH (08:21)
[2018-01-13] MEDS: FOLIC ACID 1 MG TABLET PO SCH (08:21)
--- NOTE | 2018-01-13 09:41 | FAST ---
SHIFT START DATE/TIME: 01/13/2018 07:00 (TOBACCO SIZER) SHIFT END DATE/TIME: 01/13/2018 19:00 (TOBACCO SIZER) NAME AMY WOMACK DATE OF : 1935 DATE OF ADMISSION: 12/30/2017 18:22 (TOBACCO SIZER) PHONE: AGE: 82 SSN# [id number] ENCOUNTER PHYSICIAN: Dr. Conrado Hunter M.D. 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 EATING: EATING - STEP 1: Does the patient require the assistance of a person or device, or need extra time when eating? Yes. EATING - STEP 2: Does the patient require the assistance of a helper? No, patient only requires an assistive device, O R s/he takes more than reasonable time to eat, OR there is a safety concern, OR s/he requires modifie d food consistency EATING - SCORE: 6-TRISTEN GROOMING: Activity did not occur on this shift GROOMING - SCORE: 0-UNK BATHING: Activity did not occur on this shift BATHING - SCORE: 0-UNK DRESSING - UPPER BODY: Activity did not occur on this shift ARTICLES SCORE Total number of steps: 0 DRESSING - UPPER BODY - SCORE: 0-UNK DRESSING - LOWER BODY: Activity did not occur on this shift ARTICLES SCORE Total number of steps: 0 DRESSING - LOWER BODY - SCORE: 0-UNK TOILETING: TOILETING - STEP 1: Does the patient require the assistance of a person or device, or need extra time with toileting? Yes . TOILETING - STEP 2: Does the patient require the assistance of a helper? Yes. TOILETING - STEP 3: How much assistance does the patient require from the helper? Only supervision TOILETING - SCORE: 5-SUP BLADDER MANAGEMENT: BLADDER MANAGEMENT - STEP 1: Does the patient control the bladder completely and intentionally without equipment or devices or med ications, and is always continent? No. BLADDER MANAGEMENT - STEP 2: Does the patient require the assistance of a helper? No, patient requires and independently uses an a ssistive device, such as a urinal, bedpan, bedside commode, catheter, absorbent pad, or collecting de vice BLADDER MANAGEMENT - SCORE: 6-TRISTEN BOWEL MANAGEMENT: Activity did not occur on this shift BOWEL MANAGEMENT - SCORE: 7-IND TRANSFERS: BED, CHAIR, WHEELCHAIR: TRANSFERS: BED, CHAIR, WHEELCHAIR - STEP 1: Does the patient require assitance of a person or device, or need extra time with bed, chair, or whee lchair transfers? Yes. TRANSFERS: BED, CHAIR, WHEELCHAIR - STEP 2: Does the patient require the assistance of a helper? Yes. TRANSFERS: BED, CHAIR, WHEELCHAIR - STEP 3: How much assistance does the patient require from the helper? Steadying/guiding assistance TRANSFERS: BED, CHAIR, WHEELCHAIR - SCORE: 4-MIN TRANSFERS: TOILET: TRANSFERS: TOILET - STEP 1: Does the patient require the assistance of a person or device, or need extra time with toilet transfe rs? Yes. TRANSFERS: TOILET - STEP 2: Does the patient require the assistance of a helper? Yes. TRANSFERS: TOILET - STEP 3: How much assistance does the patient require from the helper? Patient performs half or more of the tr ansferring tasks TRANSFERS: TOILET - STEP 4: Does the patient need only incidental help such as contact guard or steadying during toilet transfer? Yes. TRANSFERS: TOILET - SCORE: 4-MIN TRANSFERS: SHOWER: Activity did not occur on this shift TRANSFERS: SHOWER - SCORE: 0-UNK TRANSFERS: TUB: Activity did not occur on this shift TRANSFERS: TUB - SCORE: 0-UNK LOCOMOTION: WALK: Activity did not occur on this shift LOCOMOTION: WALK - SCORE: 0-UNK LOCOMOTION: WHEELCHAIR: Activity did not occur on this shift LOCOMOTION: WHEELCHAIR - SCORE: 0-UNK COMPREHENSION: COMPREHENSION: TYPE: Both COMPREHENSION - STEP 1: Does the patient require help from a person or device, or need extra time to understand complex and a bstract ideas (such as current events, finances, discharge planning, medical issues, relationships, e tc)? Yes. COMPREHENSION - STEP 2: Does the patient require help to understand questions or statements about basic needs or ideas (such as hunger, thirst, sleep, safety, daily schedule, room location, or discomfort) half or more of the t clementina? No. COMPREHENSION - STEP 3: How often does the patient need help to understand directions and conversation about basic needs? Les s than 10% of the time COMPREHENSION - SCORE: 5-SUP EXPRESSION EXPRESSION: TYPE: Both EXPRESSION - STEP 1: Does the patient require help from a person or device, or need extra time expressing complex and abst ract ideas (such as current events, finances, discharge planning, medical issues, relationships, etc) ? Yes. EXPRESSION - STEP 2: Does the patient require help to express basic necessities or ideas (such as hunger, thirst, sleep, s afety, daily schedule, room location, or discomfort) half or more of the time? No. EXPRESSION - STEP 3: How often does the patient need help to express directions and conversation about basic needs? Less t altamirano 10% of the time EXPRESSION - SCORE: 5-SUP SOCIAL INTERACTION: SOCIAL INTERACTION - STEP 1: Does the patient require a helper to interact with others in social and therapeutic situations? No. SOCIAL INTERACTION - STEP 2: Does the patient need extra time in social situations, OR does s/he interact with staff, other patien ts, and family members ONLY in structured environments, OR does s/he require medication for social in teraction? Yes, patient needs extra time SOCIAL INTERACTION - SCORE: 6-TRISTEN PROBLEM SOLVING: PROBLEM SOLVING - STEP 1: Does the patient need help from a person or device, or need extra time to solve complex problems such as managing a checking account or confronting interpersonal problems? No. PROBLEM SOLVING - STEP 2: Does the patient require extra time to make decisions or solve problems, OR does s/he have slight dif ficulty reading, initiating, or self-correcting in unfamiliar situations? Yes, patient needs extra ti me. PROBLEM SOLVING - SCORE: 6-TRISTEN MEMORY: MEMORY - STEP 1: Does the patient need help from a person or device, or need extra time to remember frequently encount ered people, daily routines, and executing requests? Yes. MEMORY - STEP 2: How often does the patient need help to remember frequently encountered people, daily routines, and e xecuting requests? Less than 10% of the time MEMORY - SCORE: 5-SUP SIGNATURE PANEL: The following modified sections: Eating - Score, Grooming - Score, Bathing - Score, Dressing - Upper Body - Score, Dressing - Lower Body - Score, Toileting - Score, Bladder Management - Score, Bowel Man agement - Score, Transfers: Bed, Chair, Wheelchair - Score, Transfers: Toilet - Score, Transfers: Zahra wer - Score, Transfers: Tub - Score, Locomotion: Walk - Score, Locomotion: Wheelchair - Score, Social Interaction - Score, Problem Solving - Score, Memory - Score, Expression - Score, Comprehension - Sc ore were [electronically] signed by David Gonzalez on Sat Jan 13 2018 09:40:59 GMT-0600 (Central Standard Time)
--- NOTE | 2018-01-13 09:56 | FAST ---
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 Conrado Hunter M.D. 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 EATING: EATING - STEP 1: Does the patient require the assistance of a person or device, or need extra time when eating? No. EATING - SCORE: 7-IND GROOMING: GROOMING - STEP 1: Does the patient require the assistance of a person or device, or need extra time when grooming? No. GROOMING - SCORE: 7-IND BATHING: Abdomen Buttocks Chest Left arm Left lower leg and foot Left upper leg Perineal area Right arm Right lower leg and foot Right upper leg BATHING - STEP 1: Does the patient require the assistance of a person or device, or need extra time when bathing? Yes. BATHING - STEP 2: Does the patient require the assistance of a helper? No. The patient only requires an assistive devic e such as a bath sara, OR the patient takes more than reasonable time to bathe, OR there is a concern for safety such as regulating water temperature as the patient bathes. BATHING - SCORE: 6-TRISTEN DRESSING - UPPER BODY: T-shirt/pullover shirt (four steps) ARTICLES SCORE Total number of steps: 4 DRESSING - UPPER BODY - STEP 1: Does the patient require help from a person or device, or need extra time when dressing above the [address]? No. DRESSING - UPPER BODY - SCORE: 7-IND DRESSING - LOWER BODY: Elastic waist pants (three steps) Sock - Left foot (one step) Sock - Right foot (one step) Tied or buckled shoe - Left foot (two steps) Tied or buckled shoe - Right foot (two steps) Underwear (three steps) ARTICLES SCORE Total number of steps: 12 DRESSING - LOWER BODY - STEP 1: Does the patient require help from a person or device, or need extra time when dressing below the [address]? Yes. DRESSING - LOWER BODY - STEP 2: Does the patient require the assistance of a helper? No. Patient requires an assistive device such as a construction trades teacher. OR s/he takes more than reasonable time as s/he dresses the lower body, OR there is a con cern for safety when s/he dresses the lower body DRESSING - LOWER BODY - SCORE: 6-TRISTEN TOILETING: TOILETING - STEP 1: Does the patient require the assistance of a person or device, or need extra time with toileting? No. TOILETING - SCORE: 7-IND BLADDER MANAGEMENT: Activity did not occur on this shift BLADDER MANAGEMENT - SCORE: 7-IND BOWEL MANAGEMENT: Activity did not occur on this shift BOWEL MANAGEMENT - SCORE: 7-IND TRANSFERS: BED, CHAIR, WHEELCHAIR: TRANSFERS: BED, CHAIR, WHEELCHAIR - STEP 1: Does the patient require assitance of a person or device, or need extra time with bed, chair, or whee lchair transfers? No. TRANSFERS: BED, CHAIR, WHEELCHAIR - SCORE: 7-IND TRANSFERS: TOILET: TRANSFERS: TOILET - STEP 1: Does the patient require the assistance of a person or device, or need extra time with toilet transfe rs? No. TRANSFERS: TOILET - SCORE: 7-IND TRANSFERS: SHOWER: TRANSFERS: SHOWER - STEP 1: Does the patient require the assistance of a person or device, or need extra time with shower transfe rs? No. TRANSFERS: SHOWER - SCORE: 7-IND TRANSFERS: TUB: Activity did not occur on this shift TRANSFERS: TUB - SCORE: 0-UNK LOCOMOTION: WALK: Activity did not occur on this shift LOCOMOTION: WALK - SCORE: 0-UNK LOCOMOTION: WHEELCHAIR: Activity did not occur on this shift LOCOMOTION: WHEELCHAIR - SCORE: 0-UNK LOCOMOTION: STAIRS: Activity did not occur on this shift LOCOMOTION: STAIRS - SCORE: 0-UNK COMPREHENSION: COMPREHENSION: TYPE: Both COMPREHENSION - STEP 1: Does the patient require help from a person or device, or need extra time to understand complex and a bstract ideas (such as current events, finances, discharge planning, medical issues, relationships, e tc)? No. COMPREHENSION - STEP 2: Does the patient need extra time, require an assistive device (such as glasses for visual comprehensi on or a hearing aid for auditory comprehension) or does s/he have mild difficulty understanding compl ex and abstract information? No. COMPREHENSION - SCORE: 7-IND EXPRESSION EXPRESSION: TYPE: Both EXPRESSION - STEP 1: Does the patient require help from a person or device, or need extra time expressing complex and abst ract ideas (such as current events, finances, discharge planning, medical issues, relationships, etc) ? No. EXPRESSION - STEP 2: Does the patient need extra time, require an assistive device (such as augmentive communication syste m or a communication board), OR does s/he have mild difficulty expressing complex and abstract ideas (including mild dysarthria or mild word-find problems)? No. EXPRESSION - SCORE: 7-IND SOCIAL INTERACTION: SOCIAL INTERACTION - STEP 1: Does the patient require a helper to interact with others in social and therapeutic situations? No. SOCIAL INTERACTION - STEP 2: Does the patient need extra time in social situations, OR does s/he interact with staff, other patien ts, and family members ONLY in structured environments, OR does s/he require medication for social in teraction? No. SOCIAL INTERACTION - SCORE: 7-IND PROBLEM SOLVING: PROBLEM SOLVING - STEP 1: Does the patient need help from a person or device, or need extra time to solve complex problems such as managing a checking account or confronting interpersonal problems? Yes. PROBLEM SOLVING - STEP 2: Does the patient solve basic routine problems half or more of the time? Yes. PROBLEM SOLVING - STEP 3: How often does the patient need help to solve basic routine problems? Less than 10% of the time PROBLEM SOLVING - SCORE: 5-SUP MEMORY: MEMORY - STEP 1: Does the patient need help from a person or device, or need extra time to remember frequently encount ered people, daily routines, and executing requests? Yes. MEMORY - STEP 2: How often does the patient need help to remember frequently encountered people, daily routines, and e xecuting requests? Less than 10% of the time MEMORY - SCORE: 5-SUP SIGNATURE PANEL: The following modified sections: Eating - Score, Grooming - Score, Bathing - Score, Dressing - Upper Body - Score, Dressing - Lower Body - Score, Toileting - Score, Transfers: Bed, Chair, Wheelchair - S core, Transfers: Toilet - Score, Transfers: Shower - Score, Transfers: Tub - Score, Comprehension - S core, Expression - Score, Social Interaction - Score, Problem Solving - Score, Memory - Score were [e lectronically] signed by Lorna Guardado OT on Sat Jan 13 2018 09:55:16 GMT-0600 (Central Standard T clementina)
== END 2018-01-13 10:15 | disposition home health service (06) | DRG 57 ==
LOC: 5TH 18:22
PROVIDERS: ADMIT Psychiatry & Neurology Neurology with Special Qualifications in Child Neurology; ATTEND Psychiatry & Neurology Neurology with Special Qualifications in Child Neurology
DX: I69.354 Hemiplegia and hemiparesis following cerebral infarction affecting left non-dominant side (principal); I10 Essential (primary) hypertension; E78.5 Hyperlipidemia, unspecified; I65.01 Occlusion and stenosis of right vertebral artery; R13.10 Dysphagia, unspecified; E66.9 Obesity, unspecified; Z68.36 Body mass index [BMI] 36.0-36.9, adult
CPT/HCPCS: 36415; 80048; 82040; 83735; 84134; 85025; 97542; J1650

== ENCOUNTER 2018-09-10 08:57 | Day surgery (SDC) | payer MEDICARE ==
--- OUTSIDE RECORDS SUMMARY | 2018-09-10 09:03 | XMS REPORT ---
:1935 [facility] Address [address] [place] [address] [address] [place] [address] Care Team Providers Name Role Phone Unavailable Unavailable Unavailable Problems This patient has no known problems. Allergies, Adverse Reactions, Alerts This patient has no known allergies or adverse reactions. Medications This patient has no known medications.
[2018-09-10] MEDS ORDERED: EPINEPHRINE/PF 1 MG/ML AMP ONE (09:40)
[2018-09-10] MEDS ORDERED: NS 0.9% VIAL 10 ML ONE (09:40)
[2018-09-10] MEDS ORDERED: BALANCED SALT IRRIG PLAIN 500 ML BTL IRR ONE (09:41)
[2018-09-10] MEDS ORDERED: DUOVISC 1 KIT OPTH ONE (09:41)
[2018-09-10] MEDS ORDERED: MOXIFLOXACIN HCL 10 DROPS/ML **OR USE OPTH ONE (09:41)
[2018-09-10] MEDS: TETRACAINE HCL 0.5% 4ML OPTH ONE ×3 (09:56→11:20)
[2018-09-10] MEDS: BUPIVACAINE 0.25% PF 10 ML VIAL ONE ×2 (09:56→11:10)
[2018-09-10] MEDS: LIDOCAINE 2% MPF 5 ML VIAL ONE ×2 (09:56→11:10)
[2018-09-10] MEDS: CYCLOPENTOLATE 1% OPTH 2 ML ONE ×3 (10:00→10:10)
[2018-09-10] MEDS: PHENYLEPHRINE 10% OPTH 5ML ONE ×3 (10:00→10:10)
[2018-09-10] MEDS ORDERED: NA CHLORIDE 0.9% 500 ML ONE (10:02)
[2018-09-10] MEDS ORDERED: LIDOCAINE 1% MPF 5 ML VIAL ONE (10:53)
[2018-09-10] MEDS ORDERED: PROPOFOL 200 MG/20 ML VIAL IV ONE (10:53)
--- NOTE | 2018-09-10 11:48 | P.BOP ---
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
--- NOTE | 2018-09-10 22:52 | OP ---
Date of Procedure: 09/10/2018 Surgeon: Lauryn Shaikh MD Anesthesiologist: Jason Garcia CRNA and Josiah Gutierrez MD Preoperative Diagnosis: Nuclear sclerotic and posterior subcapsular cataract, left eye. Operation Performed: Phacoemulsification with intraocular lens implant, left eye. Anesthesia: Per cataract surgery. Complications: None. Description Of Procedure: In day surgery, the patient was prepped with Betadine and draped. A conju nctival incision was made in the inferior nasal quadrant with Omar scissors. A sub-Tenon block c onsisting of a 1:1 mixture of 2% Xylocaine and 0.25% bupivacaine was placed through the conjunctival incision with a blunt cannula. A Honan balloon was placed over the eye and the patient was transferr ed to the operating room. In the operating room the patient was prepped and draped in the usual sterile fashion for ophthalmic surgery. A lid speculum was placed in the left eye. Two paracentesis sites were made superiorly and inferiorly in the limbal cornea. Viscoat was placed in the anterior chamber and a crescent blade wa s used to make a corneal groove and tunnel, and a keratome was used to enter the anterior chamber. P rovisc was placed in the anterior chamber and a 360 degree capsulotomy was performed with a cystitome . The lens was hydrodissected with BSS and rotated freely. The lens was removed with a stop and cho p technique. 8.18 phaco CDE was used to remove the lens. Residual cortex was removed with the irrig ation and aspiration. Provisc was placed in the capsular bag. A SN60WF +23.0 lens was placed in the capsular bag without complications. Irrigation and aspiration were used to remove residual viscoela stic. The paracentesis sites were hydrated with BSS. The wound and paracentesis sites were inspecte d and found to be watertight. Vigamox 0.07 cc was placed intracamerally at the end of the procedure. The eye was irrigated with balanced salt solution. The eye was patched with a soft cotton patch an d Menard metal shield. The patient was returned to day surgery in good condition. Comments: At the very end of the procedure, there was posterior pressure and for this reason Vigamox was placed on the surface and not in the eye. Trace residual PSC remained at the end of the procedu re. Discharge Instructions: Ms. Zhou is discharged to home in good condition and is to follow up wit Dr. Shaikh's office at 3 today and then in the morning. GRETCHEN/LEEANNE Voice ID: [id number] Report ID: [id number]
== END 2018-09-10 12:23 | disposition home or self-care (01) ==
LOC: OR 08:57
PROVIDERS: ATTEND Ophthalmology Retina Specialist
PROC: 08RK3JZ Replacement of Left Lens with Synthetic Substitute, Percutaneous Approach (ICD-10-PCS; principal; 2018-09-10 10:00)
DX: H25.12 Age-related nuclear cataract, left eye (principal); H25.042 Posterior subcapsular polar age-related cataract, left eye; E78.00 Pure hypercholesterolemia, unspecified; I10 Essential (primary) hypertension; J45.909 Unspecified asthma, uncomplicated; Z79.82 Long term (current) use of aspirin; Z79.899 Other long term (current) drug therapy; Z86.73 Personal history of transient ischemic attack (TIA), and cerebral infarction without residual deficits
CPT/HCPCS: 36415; 84132; 66984; J2704; J0171

== ENCOUNTER 2019-07-07 23:12 | Emergency (ER) | payer MEDICARE ==
--- OUTSIDE RECORDS SUMMARY | 2019-07-07 23:14 | XMS REPORT | Summary of Care ---
:[address] [facility] Address [address] [place] [id number] Care Team Providers Name Role Phone Jyotsna Mcclain MD Primary Care Provider Reason for Visit Reason Comments Follow-up HTN, HLD, prediabetes Constipation Pain burning feet and legs Encounter Details Date Type Department Care Team Description 04/05/2019 Office Visit [facility] Family Johan Mcclain hypertension (Primary Dx); Medicine - Kimberly Goyal MD Constipation, unspecified constipation t ype; [facility] [address] [place] [address] Neuropathic pain; [place], [place] Bilateral foot pain; [phone] Neuropathy of both feet; [phone] Prediabetes; Other hyp erlipidemia; Other exterminator helper (current) drug therapy; Medication guevara yost encounter Allergies No Known Allergiesdocumented as of this encounter (statuses as of 04/12/2019) Medications Medication Sig Dispensed Refills Start Date End Date Status losartan 100 mg Take 1 tablet 90 tablet 3 03/26/2018 Active tabletIndications: by mouth at Essential hypertension bedtime. aspirin 81 mg chewable Take 1 tablet 90 tablet 3 08/03/2018 Active tabletIndications: History by mouth of chest pain daily. atorvastatin 40 mg Take 1 tablet 90 tablet 3 08/03/2018 Active tabletIndications: by mouth at Hypercholesterolemia bedtime. pantoprazole 20 mg EC Take 1 tablet 90 tablet 1 01/08/2019 Active tabletIndications: Chronic by mouth upset stomach daily. Take 30 mins before breakfast. gabapentin 100 mg Take 1 90 capsule 1 01/08/2019 Active capsuleIndications: capsule by Bilateral foot pain, mouth every Neuropathy of both feet evening. hydroCHLOROthiazide 25 mg Take 1 tablet 90 tablet 3 04/01/2019 Active tabletIndications: by mouth Essential hypertension daily. hydrALAZINE 50 mg Take 1 tablet 270 tablet 3 04/01/2019 Active tabletIndications: by mouth 3 Essential hypertension (three) times daily. amLODIPine 5 mg tablet Take 2.5 mg 0 Active by mouth daily. lubiprostone (AMITIZA) 8 Take 1 60 capsule 5 04/05/2019 Active mcg capsuleIndications: capsule by Constipation, unspecified mouth 2 (two) constipation type times daily with meals. documented as of this encounter (statuses as of 04/12/2019) Active Problems Problem Noted Date Bilateral foot pain 01/08/2019 Kidney stone 11/27/2017 Abnormal liver ultrasound 11/27/2017 Overview: Likely hepatic steatosis with focal area s of fatty sparing Weakness 06/07/2017 Diet-controlled type 2 diabetes mellitus 11/17/2016 Essential hypertension 11/14/2016 HLD (hyperlipidemia) 11/14/2016 History of chest pain 11/14/2016 Palpitations 11/14/2016 Osteoporosis Abnormal EKG documented as of this encounter (statuses as of 04/12/2019) Immunizations Name Administration Dates Next Due Influenza High Dose 02/13/2019, 11/14/2016 Pneumococcal Polysaccharide, PPSV23 (PNEUMOVAX) 06/09/2017 Tdap 11/10/2017 documented as of this encounter Social History Tobacco Use Types Packs/Day Years Used Date Never Smoker Smokeless Tobacco: Never Used Alcohol Use Drinks/Week oz/Week Comments No Sex Assigned at Date Recorded Not on file Job Start Date Occupation Industry Not on file Not on file Not on file Travel History Travel Start Travel End No recent travel history available. 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 It should help your nerve pain. DDLE TRUCK OPERATOR documented in this encounter Progress Notes Ashley Diana - 04/05/2019 1:15 PM CST Venipuncture collection performed by clean technique on the left anticubitus. Total of 1 attempts were made. Slight pressure and a bandage/dressing were applied to the site(s). The patient experienced no complications. The following specimens were processed according to instructions and sent to [facility] laboratories per lab order on today: LT BLUE SST 3 RED LAV 2 PPT DK GREEN (LiHep) DK GREEN (SodH) [place] DK BLUE (K2) DK BLUE (S) ACD Blood Culture NIPT/NTD ohan Mcclain MD - 04/05/2019 1:15 PM CST Cc: Chief Complaint Patient presents with Follow-up HTN, HLD, prediabetes Constipation Pain burning feet and legs HPI Erika Snyder is a 83 year old female who presents today for HTN, HLD, and prediabetes follow-up. She also c/o pain of her feet and legs and chronic constipation. The patient is Romansh-speaking so a certified principal statistical programmer through the [facility] Language Line phone system was utilized for today's visit. She is accompanied by one of her sons for today's visit. HTN, HLD follow-up Medication compliance: Good. Denies adverse medication side effects. Dietary compliance: Fair. Exercise frequency: Not active. Blood pressure readings: Doesn't self-monitor. Associated symptoms: None. Denies cp, SOB, palpitations, edema, orthopnea, PND, syncope, claudication, dizziness, headaches, visual changes, or focal weakness. Cardiovascular screening (ex. EKG, stress test) in the past 3 years?: Yes. She is followed at regular intervals by [facility] Cardiology. Prediabetes follow-up Last Two A1C Results ([facility], [facility], [facility]) Recent Labs 12/07/18 1029 HGBA1C 6.2* On metformin?: No. Dietary compliance: See above. Exercise frequency: See above. Associated symptoms: Burning feet and legs. Denies polyuria, polydipsia, or blurred vision. Pain The pain is a chronic problem. The patient reports the pain started more than 1 year ago. No history was reported. The pain occurs constantly. The problem is unchanged. Pain is present in the left foot, right foot, left lower leg and right lower leg. The pain is described as burning. Severity of the pain is described as moderate. Associated symptoms include no fever, no inability to bear weight, no itching, no joint locking, no joint swelling, full range of motion, no numbness, no stiffnessand no tingling. Burning Pain is aggravated by activity and standing. She has tried nothing (She was prescribed gabapentin last visit but she apparently never picked it up from the pharmacy) for thepain. Past medical history includes osteoarthritis. Past medical history includes no diabetes, no gout, no pain syndrome and no rheumatoid arthritis. Constipation Severity: Moderate Time since last bowel movement: 1 week. Timing: Constant Progression: Waxing and waning Chronicity: Recurrent Context: stress Stool description: Small, hard and pellet like Relieved by: Nothing Ineffective treatments: Miralax, stool softeners, fiber and diet changes Associated symptoms: no abdominal pain, no anorexia, no diarrhea, no dysuria, no fever, no flatus, no hematochezia, no nausea, no urinary retention and no vomiting Allergies Erika has No Known Allergies. Medications Outpatient Medications Prior to Visit Medication Sig Dispense Refill amLODIPine 5 mg tablet Take 2.5 mg by mouth daily. hydrALAZINE 50 mg tablet Take 1 tablet by mouth 3 (three) times daily. 270 tablet 3 hydroCHLOROthiazide 25 mg tablet Take 1 tablet by mouth daily. 90 tablet 3 aspirin 81 mg chewable tablet Take 1 tablet by mouth daily. 90 tablet 3 atorvastatin 40 mg tablet Take 1 tablet by mouth at bedtime. 90 tablet 3 losartan 100 mg tablet Take 1 tablet by mouth at bedtime. 90 tablet 3 gabapentin 100 mg capsule Take 1 capsule by mouth every evening. 90 capsule 1 pantoprazole 20 mg EC tablet Take 1 tablet by mouth daily. Take 30 mins before breakfast. 90 tablet 1 No facility-administered medications prior to visit. Histories Past Medical History: Diagnosis Date Abnormal EKG Abnormal liver ultrasound 11/27/2017 Likely hepatic steatosis with focal areas of fatty sparing Asthma as a child Depression High cholesterol HLD (hyperlipidemia) 11/14/2016 Hypertension Kidney stone 11/27/2017 Osteoporosis Prediabetes 11/17/2016 TIA 2010 Past Surgical History: Procedure Laterality Date CHOLECYSTECTOMY 02/2003 EYE SURGERY cataract surgery HYSTERECTOMY Social History Socioeconomic History Marital status: Single Spouse name: Not on file Number of children: Not on file Years of education: Not on file Highest education level: Not on file Occupational History Not on file Social Needs Financial resource strain: Not on file Food insecurity: Worry: Not on file Inability: Not on file Transportation needs: Medical: Not on file Non-medical: Not on file Tobacco Use Smoking status: Never Smoker Smokeless tobacco: Never Used Substance and Sexual Activity Alcohol use: No Drug use: No Sexual activity: Never Lifestyle Physical activity: Days per week: Not on file Minutes per session: Not on file Stress: Not on file Relationships Social connections: Talks on phone: Not on file Gets together: Not on file Attends jewish service: Not on file Active member of club or organization: Not on file Attends meetings of clubs or organizations: Not on file Relationship status: Not on file Intimate partner violence: Fear of current or ex partner: Not on file Emotionally abused: Not on file Physically abused: Not on file Forced sexual activity: Not on file Other Topics Concern Not on file Social History Narrative No domestic abuse or violence. She works at [employer] in [employer]. Family History Problem Relation Age of Onset Diabetes Sister Cancer Maternal Aunt vaginal cancer, unsure age diagnosed Hypertension Daughter No Significant Medical Problems Mother No Significant Medical Problems Father Arthritis NoFHx Asthma NoFHx defects NoFHx Breast Cancer NoFHx Colon Cancer NoFHx Ovarian Cancer NoFHx Uterine Cancer NoFHx Depression NoFHx Genetic NoFHx Heart NoFHx High cholesterol NoFHx Mental retardation NoFHx Neurological NoFHx Osteoporosis NoFHx Psychiatry NoFHx Review of Systems Constitutional: Negative. Negative for fever. HENT: Negative. Eyes: Negative. Respiratory: Negative. Cardiovascular: Negative. Gastrointestinal: Positive for constipation. Negative for abdominal pain, anorexia, diarrhea, flatus, hematochezia, nausea and vomiting. Genitourinary: Negative. Negative for dysuria. Musculoskeletal: Positive for arthralgias and myalgias. Negative for gout and stiffness. Skin: Negative. Negative for itching. Neurological: Negative for tingling and numbness. Psychiatric/Behavioral: Negative. Endocrine: Endocrine negative Vital Signs BP 124/58 (BP Location: Right arm, Patient Position: Sitting, BP CUFF SIZE: Adult Medium) | Pulse 79 | Temp 36.5 C (97.7 F) (Oral) | Resp 16 | SpO2 96% Physical Exam Constitutional: She is oriented to person, place, and time. She appears well- developed and well-nourished. No distress. HENT: Head: Normocephalic. Mouth/Throat: Mucous membranes are normal. Eyes: Pupils are equal, round, and reactive to light. Conjunctivae and EOM are normal. No scleral icterus. Neck: Neck supple. No JVD present. No thyromegaly present. Cardiovascular: Normal rate, regular rhythm, normal heart sounds and intact distal pulses. Exam reveals no gallop and no friction rub. No murmur heard. Pulmonary/Chest: Effort normal and breath sounds normal. She has no wheezes. She has no rales. Abdominal: Soft. Bowel sounds are normal. She exhibits no distension and no mass. There is no tenderness. Musculoskeletal: She exhibits no edema. Foot exam: Sensory exam of the foot is normal. Monofilament exam with sensation Right: 5/5, Left: 5/5. Lesions and ulcers absent. Peripheral pulses present 2+. Lymphadenopathy: She has no cervical adenopathy. Neurological: She is alert and oriented to person, place, and time. She has normal reflexes. Skin: Skin is warm and dry. No rash noted. No pallor. Psychiatric: She has a normal mood and affect. Her behavior is normal. Nursing note and vitals reviewed. Labs Dining Room Coordinator Visit on 04/01/2019 Component Date Value NA 04/01/2019 139 K 04/01/2019 4.2 CL 04/01/2019 98 CO2 TOTAL 04/01/2019 32* AGAP 04/01/2019 9 BUN 04/01/2019 16 GLUCOSE 04/01/2019 84 CREATININE 04/01/2019 0.43* CALCIUM 04/01/2019 9.6 eGFR Calculation (Non-Af* 04/01/2019 140.6 eGFR Calculation (Romelia* 04/01/2019 170.4 MAGNESIUM 04/01/2019 2.1 Office Visit on 01/08/2019 Assessment/Plan Diagnoses and all orders for this visit: Essential hypertension Bp is at goal. Continue current medication(s). Low sodium diet/DASH diet. Exercise per Insurance Salesperson's recommendations. The patient was instructed to self monitor her blood pressure once daily varying the times when it is checked and to bring the record of readings to each office visit. The patient should follow-up sooner if the blood pressure is trending >/=130/80. - CBC WITH DIFF - THYROID STIMULATING HORMONE Hyperlipidemia Continue current lipid-lowering pharmacotherapy. Low fat, low cholesterol diet was recommended/reviewed. Exercise per Insurance Salesperson's recommendations. Will reassess her lipids next visit. Prediabetes Carb-controlled diet. Exercise per Insurance Salesperson's recommendations. Consider self glucose monitoring. Given the patient's age the choice to start metformin to help prevent progression to overt diabetes would have to be carefully considered. - GLYCOSYLATED HEMOGLOBIN (A1C) Other mcfp (current) drug therapy, Medication monitoring encounter - CBC WITH DIFF - THYROID STIMULATING HORMONE - VITAMIN B12, LEVEL - GLYCOSYLATED HEMOGLOBIN (A1C) - VITAMIN D, 25-OH - HEPATIC FUNCTION PANEL (71380) (ALB,T.PRO,BILI T,BU/BC,ALT,AST,ALK PHOS) Constipation, unspecified constipation type Discussed the patient's treatment options for constipation. We decided upon a trial of pharmacotherapy as noted. A high fiber diet, increased water intake, and use of a daily probiotic were recommended. Thyroid function testing is due. The patient is UTD with colonoscopy but should see a GI specialist if the constipation persists despite treatment. - lubiprostone (AMITIZA) 8 mcg capsule; Take 1 capsule by mouth 2 (two) times daily with meals. - CBC WITH DIFF - THYROID STIMULATING HORMONE Neuropathic pain, Bilateral foot pain, Bilateral leg pain, Neuropathy of both feet It appears the patient has developed a peripheral neuropathy. We discussed the Ddx of peripheral neuropathy including common causes such as DM2, hypothyroidism, and B12 deficiency. Lab work-up as noted. She declines imaging to r/o spinal pathology that could be contributing to/causing the patient's neuropathic symptoms. The patient will consider following-up with her Neurologist Dr. Mccormick if the work-up is unrevealing for EMG/NCV may be needed for a clearer diagnosis. Start gabapentin as previously prescribed and I will titrate her dose in the future if needed. Potential side effects of this medication were discussed. - CBC WITH DIFF - THYROID STIMULATING HORMONE - VITAMIN B12, LEVEL - GLYCOSYLATED HEMOGLOBIN (A1C) Plan of care, desired health behaviors, goals, Ddx, and any prescribed medications were discussed with the patient. This visit involved counseling and coordination of care that comprised more than 50%of the visit time. I spent 37 minute(s) total time with the patient. Education resources and self-management tools were provided and reviewed with the AVS. Patient/guardian/family verbalized understanding and agrees to the plan of care. Barriers to care: None. Ability to manage care: Good. Advanced care planning (living will) information was not given/offered to the patient to review for discussion at a future visit. If applicable, the [place] [employer] database was accessed to review any controlled substance prescription claims data. If the patient is taking prescribed medications, the 591wed prescription claims data in [place] was reviewed to assess patient compliance with the medication treatment plan. Follow-up: 3 months for routine follow-up. Follow-up sooner if any problems or concerns. Scribe Attestation Carlota Mann , am scribing for, and in the presence of, Johan Mcclain MD who performed the services described here-in. Carlota Tavarez, April 05, 2019, 1:43 PM Physician Attestation Johnathan, Johan Mcclain MD, personally performed the services described in this documentation , as scribed by, Carlota Tavarez in my presence and it is both accurate and complete. Johan Mcclain MD April 05, 2019, 1:43 PM DDLE TRUCK OPERATOR documented in this encounter Plan of Treatment Date Type Specialty Care Team Description 09/30/2019 Office Visit Cardiology Daniel Pérez M D [address] [place] [phone] Health Maintenance Due Date Last Done Comments EYE EXAM 1945 URINE MICROALBUMIN 1946 FOOT EXAM 1954 Zoster Recombinant Vaccine 1986 (SHINGRIX) (1 of 2) Medicare Wellness Visit 2001 Osteoporosis Screening 2001 PNEUMOCOCCAL VACCINES 65+ (2 of 2 06/09/2018 06/09/2017 - PCV13) HgA1C 10/04/2019 04/05/2019, 12/07/2018, 03/27/2018, Additional history exists LDL-C 12/08/2019 12/07/2018, 03/27/2018, 09/21/2017, Additional history exists CREATININE (SERUM) 04/01/2020 04/01/2019, 12/07/2018, 08/03/2018, Additional history exists DTaP,Tdap,and Td Vaccines (2 - Td) 11/11/2027 11/10/2017 INFLUENZA VACCINE Completed 02/13/2019, 11/14/2016 documented as of this encounter Procedures Procedure Name Priority Date/Time Associated Diagnosis Comme nts CBC WITH DIFFERENTIAL Routine 04/05/2019 2:32 Constipation, R esults for this PM STRADDLE TRUCK OPERATOR unspecified procedure are i n constipation typ e the results Neuropathic pain section. Bilateral foot p ain Neuropathy of both feet Prediabetes Essential hypertension Other hyperlipid emia Other exterminator helper (current) drug therapy Medication monitoring encounter VITAMIN D, 25-OH Routine 04/05/2019 2:32 Constipation, Result s for this PM STRADDLE TRUCK OPERATOR unspecified procedure are i n constipation typ e the results Neuropathic pain section. Bilateral foot p ain Neuropathy of both feet Prediabetes Essential hypertension Other hyperlipid emia Other exterminator helper (current) drug therapy Medication monitoring encounter GLYCOSYLATED Routine 04/05/2019 2:32 Constipation, Results fo r this HEMOGLOBIN (A1C) PM STRADDLE TRUCK OPERATOR unspecified procedure a re in constipation typ e the results Neuropathic pain section. Bilateral foot p ain Neuropathy of both feet Prediabetes Essential hypertension Other hyperlipid emia Other exterminator helper (current) drug therapy Medication monitoring encounter CBC WITH DIFFERENTIAL Routine 04/05/2019 2:32 Constipation, R esults for this PM STRADDLE TRUCK OPERATOR unspecified procedure are i n constipation typ e the results Neuropathic pain section. Bilateral foot p ain Neuropathy of both feet Prediabetes Essential hypertension Other hyperlipid emia Other exterminator helper (current) drug therapy Medication monitoring encounter HEPATIC FUNCTION Routine 04/05/2019 2:32 Constipation, Result s for this PANEL ([id number]) PM STRADDLE TRUCK OPERATOR unspecified procedure are in (ALB,T.PRO,BILI constipation typ e the results T,BU/BC,ALT,AST,ALK Neuropathic pain section. PHOS) Bilateral foot p ain Neuropathy of both feet Prediabetes Essential hypertension Other hyperlipid emia Other mcfp (current) drug therapy Medication monitoring encounter THYROID STIMULATING Routine 04/05/2019 2:32 Constipation, Res ults for this HORMONE PM STRADDLE TRUCK OPERATOR unspecified procedure are i n constipation typ e the results Neuropathic pain section. Bilateral foot p ain Neuropathy of both feet Prediabetes Essential hypertension Other hyperlipid emia Other exterminator helper (current) drug therapy Medication monitoring encounter VITAMIN B12, LEVEL Routine 04/05/2019 2:32 Constipation, Resu lts for this PM STRADDLE TRUCK OPERATOR unspecified procedure are i n constipation typ e the results Neuropathic pain section. Bilateral foot p ain Neuropathy of both feet Prediabetes Essential hypertension Other hyperlipid emia Other mcfp (current) drug therapy Medication monitoring encounter documented in this encounter Results CBC WITH DIFFERENTIAL (04/05/2019 2:32 PM STRADDLE TRUCK OPERATOR) Pathologist Sig nature WBC 8.47 4.30 - 11.10 [facility] 10*3/L [facility] RBC 4.41 3.93 - 5.25 [facility] 10*6/L [facility] HGB 12.4 11.6 - 15.0 [facility] g/dL [facility] HCT 39.9 35.7 - 45.2 % [facility] MCV 90.5 80.6 - 95.5 fL [facility] MCH 28.1 25.9 - 32.8 pg [facility] MCHC 31.1 (L) 31.6 - 35.1 [facility] g/dL [facility] RDW-SD 43.0 39.0 - 49.9 fL [facility] RDW-CV 13.0 12.0 - 15.5 % [facility] PLT 360 (H) 166 - 358 [facility] 10*3/L [facility] MPV 10.6 9.5 - 12.9 fL [facility] NRBC/100 WBC 0.0 0.0 - 10.0 /100 [facility] WBCs [facility] NRBC x10^3 <0.01 10*3/L [facility] GRAN MAT (NEUT) % 59.1 % [facility] IMM GRAN % 0.20 % [facility] LYMPH % 30.6 % [facility] MONO % 7.8 % [facility] EOS % 1.9 % [facility] BASO % 0.4 % [facility] GRAN MAT x10^3(ANC) 5.01 1.88 - 7.09 [facility] 10*3/uL [facility] IMM GRAN x10^3 <0.03 0.00 - 0.06 [facility] 10*3/uL [facility] LYMPH x10^3 2.59 1.32 - 3.29 [facility] 10*3/uL [facility] MONO x10^3 0.66 0.33 - 0.92 [facility] 10*3/uL [facility] EOS x10^3 0.16 0.03 - 0.39 [facility] 10*3/uL [facility] BASO x10^3 0.03 0.01 - 0.07 [facility] 10*3/uL [facility] Specimen Blood Performing Organization Address [facility] Phone Number [facility] CLIA: [id number], [address] [id number] [address] HEPATIC FUNCTION PANEL ([id number]) (ALB,T.PRO,BILI T,BU/BC,ALT,AST,ALK PHOS) (04/05/2019 2:32 PM STRADDLE TRUCK OPERATOR) Pathologist Sig nature TOTAL BILI 0.3 0.1 - 1.1 mg/dL [facility] BILI UNCON 0.2 0.1 - 1.1 mg/dL [facility] BILI CONJ 0.0 0.0 - 0.3 mg/dL [facility] T PROTEIN 6.8 6.3 - 8.2 g/dL [facility] ALBUMIN 4.3 3.5 - 5.0 g/dL [facility] ALK PHOS 88 34 - 122 U/L [facility] ALTv 27 5 - 35 U/L [facility] AST(SGOT) 34 13 - 40 U/L [facility] Specimen Blood Performing Organization Address [facility] Phone Number [facility] CLIA: [id number], [address] [address] 15 [facility] VITAMIN D, 25-OH (04/05/2019 2:32 PM STRADDLE TRUCK OPERATOR) Pathologist Sig [employer] VIT D 25OH 28 25 - 80 ng/mL [facility] Specimen Blood Narrative Performed At Deficiency: <20 ng/mL [facility] Insufficiency: 20-24 ng/mL Optimal: 25-80 ng/mL Performing Organization Address [facility] Phone Number [facility] CLIA: [id number], [address] [place] [address] [address] [facility] GLYCOSYLATED HEMOGLOBIN (A1C) (04/05/2019 2:32 PM STRADDLE TRUCK OPERATOR) Pathologist [place] [facility] HGB A1C 6.7 (H) 4.0 - 6.0 % NGSMT. [facility] Specimen Blood Narrative Performed At %A1C (NGSP) Interpretation (ADA) [facility] 4.8-5.6 Normal or (Non-Diabetic Ra nge) 5.7-6.4 Increased Risk (Pre-Diabet ic) >6.5 Diabetes Indicated Performing Organization Address [facility] Phone Number [facility] CLIA: [id number], [address] [place] [address] 15 [facility] Hospital [facility] VITAMIN B12, LEVEL (04/05/2019 2:32 PM STRADDLE TRUCK OPERATOR) Pathologist [facility] VIT B12 815 240 - 930 pg/mL [facility] Specimen Blood Narrative Performed At Biotin has been reported to cause a positive bias, int erpret [facility] results relative to patient's use of biotin. Performing Organization Address [facility] Phone Number [facility] CLIA: [id number], [address] [place] [address] 77 555 [facility] THYROID STIMULATING HORMONE (04/05/2019 2:32 PM STRADDLE TRUCK OPERATOR) Pathologist [facility] TSH 3.27 0.45 - 4.70 mIU/L [facility] Specimen Blood Performing Organization Address [facility] Phone Number [facility] CLIA: [id number], [address] [place] [address] documented in this encounter Visit Diagnoses Diagnosis Essential hypertension - Primary Unspecified essential hypertension Constipation, unspecified constipation t ype Neuropathic pain Neuralgia, neuritis, and radiculitis, un specified Bilateral foot pain Pain in limb Neuropathy of both feet Mononeuritis of lower limb, unspecified Prediabetes Other abnormal glucose Other hyperlipidemia Other mcfp (current) drug therapy Medication monitoring encounter Encounter for therapeutic drug monitorin g documented in this encounter Insurance Payer Benefit Plan Subscriber ID Effective Phone Address Typ e / Group Dates [facility] [id number] 2017-Pres Medica re Adv HEALTHCARE - MEDICARE ent HMO MANAGED COMPLETE MEDICARE [id number] MEDICAID OF xxxxxxxxx 2017-Pres [phone] [address] [facility] ent [phone] [place] [address] documented as of this encounter"
--- OUTSIDE RECORDS SUMMARY | 2019-07-07 23:14 | XMS REPORT ---
:1935 Author Organization [facility] t Address [address] [place] [address] Care Team Providers Name Role Phone Sarahi MURGUIA, A Attending Clinician Problems This patient has no known problems. Allergies, Adverse Reactions, Alerts This patient has no known allergies or adverse reactions. Medications This patient has no known medications. Procedures This patient has no known procedures. Encounters Start End Encounter Admission Attending Care Care Encounter Source Date/Time Date/Time Type Type Clinicians Facility Department ID 2019-07-03 2019-07-03 Telephone JOHN Mcclain [id number] 00:00:00 00:00:00 [place] [id number] [place] [id number] Professio [phone] [address] 2019-07-01 2019-07-01 Telephone JOHN Mcclain [id number] 00:00:00 00:00:00 [facility] [id number] [place] [id number] Professio [phone] [place] [address] [address] 2019-05-14 2019-05-14 Refill JOHN Mcclain [id number] 00:00:00 00:00:00 [facility] [id number] [place] [id number] Professio [phone] [place] [address] [address] 2019-04-05 2019-04-05 Office JOHN Mcclain [id number] 13:11:19 14:32:32 Visit [place] [id number] [place] [id number] [place] [phone] [facility] [address] Results This patient has no known results.
--- OUTSIDE RECORDS SUMMARY | 2019-07-07 23:15 | XMS REPORT ---
:1935 Author Name Admin Address Unavailable Unavailable , Problems No Known Problems ENCOUNTERS Date Type Provider Location Encounter Diagn osis - Ambulatory Encounter Mirella Villalobos [facility] UNK - Ambulatory Encounter Mirella Villalobos [facility] Dental UNK Alba Thacker VITAL SIGNS Date Observation Value Provider pulse rate 76 /min Alba Thacker " method used to obtain blood pressure automatic Alba Thacker " Blood Pressure Position 01 sitting Alba Thacker " blood pressure, site #1 left arm Alba Car odilia " blood pressure, diastolic 77 mm[Hg] Alba C ardona " blood pressure, systolic 153 mm[Hg] Alba Ca rdona Allergies No Known Allergy Information REASON FOR REFERRAL No Information Available RESULTS No Information Available HISTORY OF IMMUNIZATIONS No Information Available HISTORY OF MEDICATION USE Medication Instructions Dates Provider Comments AMOXICILLIN 500 MG 4 tablets by mouth every Mirella Villalobos ORAL CAPSULE 1 hr prior to appointment for premedication SOCIAL HISTORY No Information Available FUNCTIONAL STATUS No Information Available MENTAL STATUS No Information Available MEDICAL EQUIPMENT No Information Available FAMILY HISTORY No Information Available INSURANCE PROVIDERS Payer name Policy type / Coverage type Covered part y ID Sliding Fee - Cat 1 [employer] insurance [employer] [id number] ADVANCE DIRECTIVES No Information Available TREATMENT PLAN No Information Available HISTORY OF PROCEDURES No Information Available GOALS No Information Available HEALTH CONCERNS No Information Available
--- OUTSIDE RECORDS SUMMARY | 2019-07-07 23:15 | XMS REPORT | Summary of Care ---
:1935 Author Organization [facility] Address [address] [place] [address] Care Team Providers Name Role Phone Jyotsna Mcclain MD Primary Care Provider Reason for Visit Reason Comments Refill Request Encounter Details Date Type Department Care Team Description 05/14/2019 Refill [facility] Johan Garcia MD Refill Request - [address] [place] [address] [place] [address] [phone] Allergies No Known Allergiesdocumented as of this encounter (statuses as of 05/14/2019) Medications Medication Sig Dispensed Refills Start End Date Status Date losartan 100 mg Take 1 90 tablet 3 Acti ve tabletIndications: tablet by 9 Essential hypertension mouth at bedtime. aspirin 81 mg chewable Take 1 90 tablet 3 Active tabletIndications: tablet by 9 History of chest pain mouth daily. atorvastatin 40 mg Take 1 90 tablet 3 A ctive tabletIndications: tablet by 9 Hypercholesterolemia mouth at bedtime. pantoprazole 20 mg EC Take 1 90 tablet 1 Active tabletIndications: tablet by 9 Chronic upset stomach mouth daily. Take 30 mins before breakfast. gabapentin 100 mg Take 1 90 capsule 1 A ctive capsuleIndications: capsule by 9 Bilateral foot pain, mouth every Neuropathy of both feet evening. hydroCHLOROthiazide 25 mg Take 1 90 tablet 3 Active tabletIndications: tablet by 0 Essential hypertension mouth daily. hydrALAZINE 50 mg Take 1 270 tablet 3 A ctive tabletIndications: tablet by 0 Essential hypertension mouth 3 (three) times daily. lubiprostone (AMITIZA) 8 Take 1 60 capsule 5 Active mcg capsuleIndications: capsule by 0 Constipation, unspecified mouth 2 constipation type (two) times daily with meals. AMLODIPINE 5 mg Take 1/2 45 tablet 2 Acti ve tabletIndications: (one-half) 0 Essential hypertension tablet by mouth once daily amLODIPine 5 mg tablet Take 2.5 mg 0 05/13 Discontinued by mouth 20 daily. documented as of this encounter (statuses as of 05/14/2019) Active Problems Problem Noted Date Bilateral foot pain 01/08/2019 Kidney stone 11/27/2017 Abnormal liver ultrasound 11/27/2017 Overview: Likely hepatic steatosis with focal area s of fatty sparing Weakness 06/07/2017 Diet-controlled type 2 diabetes mellitus 11/17/2016 Essential hypertension 11/14/2016 HLD (hyperlipidemia) 11/14/2016 History of chest pain 11/14/2016 Palpitations 11/14/2016 Osteoporosis Abnormal EKG documented as of this encounter (statuses as of 05/14/2019) Immunizations Name Administration Dates Next Due Influenza [...] of this encounter Last Filed Vital Signs Not on filedocumented in this encounter Plan of Treatment Date Type Specialty Care Team Description 09/30/2019 Office Visit Cardiology Daniel Pérez M D [address] [place] [address] 15 [phone] Health Maintenance Due Date Last Done Comments [...] 02/13/2019, 11/14/2016 documented as of this encounter Results Not on filedocumented in this encounter Visit Diagnoses Diagnosis Essential hypertension - Primary Unspecified essential hypertension documented in this encounter Insurance Payer Benefit Plan Subscriber ID Effective Phone Address Typ e / Group Dates [facility] [id number] 2017-Pres Medica re Adv HEALTHCARE - MEDICARE ent HMO MANAGED COMPLETE MEDICARE [facility] MEDICAID OF xxxxxxxxx 2017-Pres [phone] [facility] ent [phone] [place] [address] documented as of this encounter
--- OUTSIDE RECORDS SUMMARY | 2019-07-07 23:15 | XMS REPORT ---
:1935 Author Name Admin Address Unavailable Unavailable , Problems No Known Problems ENCOUNTERS Date Type Provider Location Encounter Diagn osis - Ambulatory Encounter Mirella Villalobos [facility] Dental UNK - Ambulatory Encounter Mirella Villalobos [facility] Dental UNK Alba Thacker VITAL SIGNS Date [...] y ID Sliding Fee - Cat 1 [employer] insurance [employer] [id number] ADVANCE DIRECTIVES No Information Available TREATMENT PLAN No Information Available HISTORY OF PROCEDURES No Information Available GOALS No Information Available HEALTH CONCERNS No Information Available
--- OUTSIDE RECORDS SUMMARY | 2019-07-07 23:15 | XMS REPORT ---
:1935 Author Name Admin Address Unavailable Unavailable , Problems No Known Problems ENCOUNTERS Date Type Provider Location Encounter Diagn osis - Ambulatory Encounter Mirella Villalobos [facility] UNK - Ambulatory Encounter Mirella Villalobos [facility] UNK - Ambulatory Encounter Mirella Villalobos [facility] UNK Shy Miller - Ambulatory Encounter Mirella Villalobos [facility] UNK - Ambulatory Encounter Mirella Villalobos [facility] UNK Alba Thacker VITAL SIGNS Date Observation Value Provider pulse rate #2 79 Shy Miller " blood pressure, diastolic, second observation 67 mm[Hg] Shy Miller " blood pressure, systolic, second observation 196 mm[Hg] Shy Miller " pulse rate 80 /min Shy Miller " blood pressure, diastolic 71 mm[Hg] Shy Miller " blood pressure, systolic 171 mm[Hg] Shy Q uiroz pulse rate 76 /min Alba Thacker " [...] y ID Sliding Fee - Cat 1 [email or web address] insurance T[place] [id number] ADVANCE DIRECTIVES No Information Available TREATMENT PLAN No Information Available HISTORY OF PROCEDURES No Information Available GOALS No Information Available HEALTH CONCERNS No Information Available
--- OUTSIDE RECORDS SUMMARY | 2019-07-07 23:15 | XMS REPORT | Summary of Care ---
:1935 Author Organization [facility] Address [address] [place] [address] Care Team Providers Name Role Phone Jyotsna Mcclain MD Primary Care Provider Reason for Visit Reason Comments Forms dental preop clearance Encounter Details Date Type Department Care Team Description 07/01/2019 Telephone [facility] Family Johan Mcclain F orms (dental preop Medicine - Kimberly MURGUIA clearance) [facility] [address] [phone] Allergies No Known Allergiesdocumented as of this encounter (statuses as of 07/01/2019) Medications Medication Sig Dispensed Refills Start Date [...] mouth 3 Essential hypertension (three) times daily. lubiprostone (AMITIZA) 8 Take 1 60 capsule 5 04/05/2019 Active mcg capsuleIndications: capsule by Constipation, unspecified mouth 2 (two) constipation type times daily with meals. AMLODIPINE 5 mg Take 1/2 45 tablet 2 05/14/2019 Act gretel tabletIndications: (one-half) Essential hypertension tablet by mouth once daily documented as of this encounter (statuses as of 07/01/2019) Active Problems Problem Noted Date Bilateral foot pain 01/08/2019 Kidney stone 11/27/2017 Abnormal liver ultrasound 11/27/2017 Overview: Likely hepatic steatosis with focal area s of fatty sparing Weakness 06/07/2017 Diet-controlled type 2 diabetes mellitus 11/17/2016 Essential hypertension 11/14/2016 HLD (hyperlipidemia) 11/14/2016 History of chest pain 11/14/2016 Palpitations 11/14/2016 Osteoporosis Abnormal EKG documented as of this encounter (statuses as of 07/01/2019) Immunizations Name Administration Dates Next Due Influenza [...] Office Visit Cardiology Daniel Pérez M D [address] [place] [address] 15 [phone] Health Maintenance Due Date Last Done Comments [...] Results Not on filedocumented in this encounter Insurance Payer Benefit Plan Subscriber ID Effective Phone Address Typ e / Group Dates [facility] [id number] 2017-Pres Medica re Adv HEALTHCARE - MEDICARE ent HMO MANAGED COMPLETE MEDICARE [facility] MEDICAID OF xxxxxxxxx 2017-Pres [phone] [facility] ent [phone] [place] [address] documented as of this encounter
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
--- OUTSIDE RECORDS SUMMARY | 2019-07-07 23:16 | XMS REPORT | Summary of Care ---
:1935 Author Organization [facility] Address [address] [place] [address] Care Team Providers Name Role Phone Jyotsna Mcclain MD Primary Care Provider Reason for Visit Reason Comments Notification MEDICATION REQUEST Encounter Details Date Type Department Care Team Description 07/03/2019 Telephone [facility] Pediatric Johan Mcclain otification and Adult Primary MD Jyotsna (MEDICATION REQUEST) [facility] [place] [address] [facility] [address] [place], [place] [address] [address] [place], [place] [phone] [address] [phone] Allergies No Known Allergiesdocumented as of this encounter (statuses as of 07/03/2019) Medications Medication Sig Dispensed Refills Start Date [...] as of this encounter (statuses as of 07/03/2019) Active Problems Problem Noted Date Bilateral foot pain 01/08/2019 Kidney stone 11/27/2017 Abnormal liver ultrasound 11/27/2017 Overview: Likely hepatic steatosis with focal area s of fatty sparing Weakness 06/07/2017 Diet-controlled type 2 diabetes mellitus 11/17/2016 Essential hypertension 11/14/2016 HLD (hyperlipidemia) 11/14/2016 History of chest pain 11/14/2016 Palpitations 11/14/2016 Osteoporosis Abnormal EKG documented as of this encounter (statuses as of 07/03/2019) Immunizations Name Administration Dates Next Due Influenza [...] Treatment Date Type Specialty Care Team Description 07/11/2019 Telemedicine Visit Family Medicine Sheldon Mcclain MD [address] [phone] 09/30/2019 Office Visit Cardiology Daniel Pérez M D [address] [facility] [address] [place] [address] 15 Health Maintenance Due Date Last Done Comments EYE EXAM 1945 URINE MICROALBUMIN 1946 Zoster Recombinant Vaccine 1986 (SHINGRIX) (1 of 2) Medicare Wellness Visit 2001 Osteoporosis Screening 2001 PNEUMOCOCCAL VACCINES 65+ (2 of 2 06/09/2018 06/09/2017 - PCV13) HgA1C 10/04/2019 04/05/2019, 12/07/2018, 03/27/2018, Additional history exists LDL-C 12/08/2019 12/07/2018, 03/27/2018, 09/21/2017, Additional history exists CREATININE (SERUM) 04/01/2020 04/01/2019, 12/07/2018, 08/03/2018, Additional history exists FOOT EXAM 04/05/2020 04/05/2019 DTaP,Tdap,and Td Vaccines (2 - Td) 11/11/2027 11/10/2017 INFLUENZA VACCINE Completed 02/13/2019, 11/14/2016 documented as of this encounter Results Not on filedocumented in this encounter Insurance Payer Benefit Plan Subscriber ID Effective Phone Address Typ e / Group Dates [facility] [id number] 2017-Pres Medica re Adv HEALTHCARE - MEDICARE ent HMO MANAGED COMPLETE MEDICARE [facility] MEDICAID OF xxxxxxxxx 2017-Pres [phone] [facility] [place] ent [id number] [place] [address] documented as of this encounter
[2019-07-07] MEDS ORDERED: ACETAMINOPHEN 500 MG TAB ONE (23:53)
[2019-07-08 01:36] LABS: Absolute Lymphocytes (CBC) 1.4 K/uL (0.7-4.9); Basophils % 0.3 % (0-1.3); Hematocrit 34.5 % (36.0-45.0); Lymphocytes % 13.1 % (15.3-44.8); MPV 8.5 fL (7.6-11.3); RBC Red Blood Cell Count 3.99 M/uL (3.86-4.86)
[2019-07-08 01:47] LABS: ALT/SGPT 31 U/L (12-78); AST/SGOT 25 U/L (15-37); Albumin 3.3 g/dL (3.4-5.0); Alkaline Phosphatase 88 U/L (45-117); BUN Blood Urea Nitrogen 8 mg/dL (7-18); Bicarbonate 25 mmol/L (21-32); Bilirubin Direct 0.1 mg/dL (0-0.2); Bilirubin Total 0.5 mg/dL (0.2-1.0); Glucose Level 121 mg/dL (74-106); Lipase 125 U/L (73-393); Potassium 3.4 mmol/L (3.5-5.1); Sodium Level 136 mmol/L (136-145); Troponin (Emerg Dept Use Only) < 0.02 ng/mL (0.0-0.045)
[2019-07-08] MEDS ORDERED: CEFTRIAXONE/SWI 1gm 1 GM/10 ML SYR ONE (02:17)
[2019-07-08] MEDS ORDERED: NA CHLORIDE 0.9% 1,000 ML ONE (02:17)
[2019-07-08 03:31] LABS: Urine Blood TRACE (NEG); Urine Glucose NEGATIVE (NEG); Urine Protein NEGATIVE (NEG); Urine pH 6.5 (5.0-7.0)
--- NOTE | 2019-07-08 04:10 | EDPHYS ---
Physician Documentation [facility] Name: Erika Jacobson Age: 84 yrs Sex: Female : 1935 Arrival Date: 07/07/2019 Time: 23:15 Bed 6 Private MD: ED Physician Gael Peres HPI: 07/06 23:49 This 84 yrs old Female presents to ER via Wheelchair with complaints of Fever, jmm Abdominal Pain, Vomiting. 23:49 The patient reports fever, not measured (subjective). Onset: The symptoms/episode jmm began/occurred gradually, 3 day(s) ago. Modifying factors: there are no obvious modifying factors. Associated signs and symptoms: Pertinent negatives: abdominal pain, diarrhea, vomiting. This is an 84 year old female with a history of hlp, htn, that presents to the ED with complaints of fever, weakness, body aches beginning 3 days ago. Denies vomiting, diarrhea. Complains of abdominal bloating. . Historical: - Allergies: 23:44 No Known Allergies; lp1 - Home Meds: 23:44 losartan 100 mg Oral tab 1 tab once daily [Active]; aspirin 81 mg Oral chew 1 tab once lp1 daily [Active]; - PMHx: 23:44 CVA; Hyperlipidemia; Hypertension; lp1 - PSHx: 23:44 Cholecystectomy; ; Hysterectomy; lp1 - Immunization history:: Adult Immunizations up to date. - Social history:: Smoking status: Patient denies any tobacco usage or history of. ROS: 23:49 Cardiovascular: Negative for chest pain, palpitations, and edema, Respiratory: Negative jmm for shortness of breath, cough, wheezing, and pleuritic chest pain. 23:49 Back: Negative for injury and pain, MS/Extremity: Negative for injury and deformity, Skin: Negative for injury, rash, and discoloration, Neuro: Negative for headache, weakness, numbness, tingling, and seizure, Psych: Negative for depression, anxiety, suicide ideation, homicidal ideation, and hallucinations. 23:49 Constitutional: Positive for body aches, fever. 23:49 Abdomen/GI: Positive for nausea. 23:49 All other systems are negative. Exam: 23:49 Constitutional: This is a well developed, well nourished patient who is awake, alert, jmm and in no acute distress. Head/Face: atraumatic. Eyes: EOMI, no conjunctival erythema appreciated ENT: Moist Mucus Membranes Neck: Trachea midline, Supple Chest/axilla: Normal chest wall appearance and motion. 23:49 Abdomen/GI: Non distended, soft Back: Normal ROM Skin: General appearance color normal MS/ Extremity: Moves all extremities, no obvious deformities appreciated, no edema noted to the lower extremities Neuro: Awake and alert, normal gait Psych: Behavior is normal, Mood is normal, Patient is cooperative and pleasant 23:49 Cardiovascular: Rate: normal, Rhythm: regular. 23:49 Respiratory: the patient does not display signs of respiratory distress, Respirations: normal, Breath sounds: are clear throughout. Vital Signs: 23:32 BP 141 / 58; Pulse 93; Resp 18; Temp 103.1(O); Pulse Ox 96% on R/A; Weight 58.97 kg lp1 (R); Height 5 ft. 0 in. (152.40 cm); Pain 0/10; 05 02:30 BP 124 / 49; Pulse 95; Resp 17; Pulse Ox 98% ; rr5 03:09 BP 119 / 59; Pulse 66; Resp 16; Temp 98.5; Pulse Ox 99% ; rr5 04:00 BP 119 / 49; Pulse 72; Resp 17; Pulse Ox 100% ; rr5 04:54 BP 108 / 38; Pulse 77; Resp 16; Temp 98.4; Pulse Ox 99% on R/A; rr5 05:32 BP 137 / 51; Pulse 77; Resp 17; Pulse Ox 99% ; rr5 05/24 23:32 Body Mass Index 25.39 (58.97 kg, 152.40 cm) lp1 MDM: 01:10 Patient medically screened. [facility] 02:24 Data reviewed: vital signs, nurses notes. Counseling: I had a detailed discussion with [facility] the patient and/or guardian regarding: the historical points, exam findings, and any diagnostic results supporting the discharge/admit diagnosis. Transition of care: After a detail discussion of the patient's case, care is transferred to Gael Peres DO. 03:34 ED course: Discussed case with Dr Cuenca, Urology and he will consult on patient.. ms3 04:07 ED course: Discussed case with Dr Colon at [facility] and she accepts pt as PUI.. ms3 04:10 Counseling: I had a detailed discussion with the patient and/or guardian regarding: lab ms3 results, radiology results, the need to transfer to another facility. ED course: Discussed with pt and her daughter need for transfer to [facility] and they understand/ agree with plan. All questions answered.. 07/07 00:30 Order name: Basic Metabolic Panel [facility] 07/07 00:30 Order name: CBC with Diff [facility] 07/07 00:30 Order name: Hepatic Function [facility] 07/07 00:30 Order name: Lipase [facility] 07/07 00:30 Order name: Troponin (emerg Dept Use Only); Complete Time: 01:57 [facility] 07/07 00:30 Order name: Blood Culture Adult (2) [facility] 07/07 00:30 Order name: Lactate; Complete Time: :57 [facility] 07/07 00:31 Order name: Basic Metabolic Panel; Complete Time: 01:57 [facility] 07/07 00:31 Order name: CBC with Automated Diff; Complete Time: 01:57 [facility] 07/07 00:31 Order name: Liver (Hepatic) Function; Complete Time: 01:57 [facility] 07/07 00:31 Order name: Lipase; Complete Time: 01:57 [facility] 07/07 00:31 Order name: Procalcitonin; Complete Time: 02:27 [facility] 07/07 03:09 Order name: Urine Dipstick--Ancillary (enter results); Complete Time: 04:00 [facility] 07/07 00:30 Order name: IV Saline Lock; Complete Time: 01:22 [facility] 07/07 00:30 Order name: Labs collected and sent; Complete Time: 01:22 [facility] 07/07 00:31 Order name: CT Abd/Pelvis - IV Contrast Only [facility] 07/07 00:32 Order name: Urine Dipstick-Ancillary (obtain specimen); Complete Time: 01:25 [facility] 07/07 04:15 Order name: Lactate Sepsis 2 HR Follow-up; Complete Time: 05:15 EDMS Administered Medications: 07/06 23:49 Drug: Tylenol 1000 mg Route: PO; lp1 07/07 01:00 Follow up: Response: No adverse reaction; Temperature is decreased rr5 02:30 Drug: Rocephin 1 grams Route: IV; Rate: calculated rate; Site: right forearm; rr5 03:09 Follow up: Response: No adverse reaction; IV Status: Completed infusion; IV Intake: 57ryib4 02:30 Drug: NS 0.9% 500 ml Route: IV; Rate: bolus; Site: right forearm; rr5 03:09 Follow up: Response: No adverse reaction; IV Status: Completed infusion; IV Intake: rr5 500ml 04:30 Drug: Zosyn 3.375 grams Route: IVPB; Infused Over: 60 mins; Site: right forearm; rr5 05:33 Follow up: Response: No adverse reaction; IV Status: Completed infusion; IV Intake: rr5 100ml Disposition: 04:07 Co-signature as Attending Physician, Gael Peres DO. I agree with the assessment and ms3 plan of care. Case taken over from JENNA Tristan at 0100.. Chart complete. Disposition: 07/08/19 04:08 Transfer ordered to [facility]. Diagnosis are Fever, unspecified, Unspecified acute appendicitis, Hydronephrosis with renal and ureteral calculous obstruction. - Reason for transfer: Higher level of care. - Accepting physician is Dr Colon. - Condition is Stable. - Problem is new. - Symptoms are unchanged. Signatures: Dispatcher [employer] EDMS Julio Tristan PA PA jmm Pena, Laura RN RN lp1 Dinh Zabala RN RN rr5 Gael Peres DO DO ms3 Corrections: (The following items were deleted from the chart) 03:18 02:34 LACTATE+C.LAB.BRZ ordered. EDHI EDMS 05:34 04:08 07/08/2019 04:08 Transfer ordered to [facility]. rr5 Diagnosis is Fever, unspecified; Unspecified acute appendicitis; Hydronephrosis with renal and ureteral calculous obstruction. Reason for transfer: Higher level of care. Accepting physician is Dr Colon. Condition is Stable. Problem is new. Symptoms are unchanged. ms3
[2019-07-08] MEDS ORDERED: PIPER/TAZO/NS 3.375gm 3.375 GM/100 ML BAG ONE (04:29)
--- NOTE | 2019-07-08 05:35 | ER ---
Nurse's Notes [facility] Name: Erika Jacobson Age: 84 yrs Sex: Female : 1935 Arrival Date: 07/07/2019 Time: 23:15 Bed 6 Private MD: Diagnosis: Fever, unspecified;Unspecified acute appendicitis;Hydronephrosis with renal and ureteral calculous obstruction Presentation: 07/06 23:32 Chief complaint: Patient states: Fever and abdominal pain, bloating since yesterday; lp1 fever of 101.6 at home, Tylenol taken last at 1600, 500 mg Tylenol PO; Complaint of vomiting x5 yesterday, chills; States small BM yesterday; Hx of constipation. Coronavirus screen: Proceed with normal triage. Ebola Screen: No symptoms or risks identified at this time. Initial Sepsis Screen: Does the patient meet any 2 criteria? Temp <36.0*C (96.8*F)) or > 38.3*C (100.9*F). HR > 90 bpm. Does the patient have a suspected source of infection? Yes: Acute abdominal pain. Risk Assessment: Do you want to hurt yourself or someone else? Patient reports no desire to harm self or others. Onset of symptoms was July 07, 2019. 23:32 Method Of Arrival: Wheelchair lp1 23:32 Acuity: ISHAN 2 lp1 Historical: - Allergies: 23:44 No Known Allergies; lp1 - Home Meds: 23:44 losartan 100 mg Oral tab 1 tab once daily [Active]; aspirin 81 mg Oral chew 1 tab once lp1 daily [Active]; - PMHx: 23:44 CVA; Hyperlipidemia; Hypertension; lp1 - PSHx: 23:44 Cholecystectomy; ; Hysterectomy; lp1 - Immunization history:: Adult Immunizations up to date. - Social history:: Smoking status: Patient denies any tobacco usage or history of. Screenin:44 Abuse screen: Denies threats or abuse. Denies injuries from another. Nutritional lp1 screening: No deficits noted. Tuberculosis screening: No symptoms or risk factors identified. 07/07 01:00 Fall Risk IV access (20 points). Total Gonzales Fall Scale indicates No Risk (0-24 pts). rr5 Assessment: 01:00 General: Appears in no apparent distress. uncomfortable, Behavior is calm, cooperative, rr5 appropriate for age, Reports fever for. 01:00 Pain: Denies pain. Neuro: Level of Consciousness is awake, alert, obeys commands, rr5 Oriented to person, place, time, situation. Cardiovascular: Capillary refill < 3 seconds Patient's skin is warm and dry. Respiratory: Airway is patent Respiratory effort is even, unlabored, Respiratory pattern is regular, symmetrical. GI: Abdomen is round Bowel sounds present X 4 quads. Abdomen is tender to palpation in right lower quadrant Reports lower abdominal pain, upper abdominal pain, bloating, constipation, vomiting, bloating. : No signs and/or symptoms were reported regarding the genitourinary system. EENT: No signs and/or symptoms were reported regarding the EENT system. Derm: Skin is intact, is healthy with good turgor, Skin temperature is warm. Musculoskeletal: Circulation, motion, and sensation intact. Capillary refill < 3 seconds. 02:30 Reassessment: Patient appears in no apparent distress at this time. Patient is alert, rr5 oriented x 3, equal unlabored respirations, skin warm/dry/pink. back from CT scan. 03:50 Reassessment: Patient appears in no apparent distress at this time. Patient is alert, rr5 oriented x 3, equal unlabored respirations, skin warm/dry/pink. awaiting for CT scan. temperature decreased. 04:00 Reassessment: Patient appears in no apparent distress at this time. Patient and/or rr5 family updated on plan of care and expected duration. Pain level reassessed. Patient is alert, oriented x 3, equal unlabored respirations, skin warm/dry/pink. 04:30 Reassessment: spoke to suzanne PALAFOX chi [facility] report given and accepted the case. rr5 05:00 Reassessment: Patient appears in no apparent distress at this time. Patient is alert, rr5 oriented x 3, equal unlabored respirations, skin warm/dry/pink. no complaints made awaiting for EMS trasnport Patient states feeling better. Patient states symptoms have improved. 05:31 Reassessment: Patient appears in no apparent distress at this time. Patient is alert, rr5 oriented x 3, equal unlabored respirations, skin warm/dry/pink. report given to EMS awake alert vitally stable,no complaints made. Vital Signs: 07/06 23:32 BP 141 / 58; Pulse 93; Resp 18; Temp 103.1(O); Pulse Ox 96% on R/A; Weight 58.97 kg lp1 (R); Height 5 ft. 0 in. (152.40 cm); Pain 0/10; 07/07 02:30 BP 124 / 49; Pulse 95; Resp 17; Pulse Ox 98% ; rr5 03:09 BP 119 / 59; Pulse 66; Resp 16; Temp 98.5; Pulse Ox 99% ; rr5 04:00 BP 119 / 49; Pulse 72; Resp 17; Pulse Ox 100% ; rr5 04:54 BP 108 / 38; Pulse 77; Resp 16; Temp 98.4; Pulse Ox 99% on R/A; rr5 05:32 BP 137 / 51; Pulse 77; Resp 17; Pulse Ox 99% ; rr5 07/06 23:32 Body Mass Index 25.39 (58.97 kg, 152.40 cm) lp1 ED Course: 07/06 23:15 Patient arrived in ED. cf2 23:43 Triage completed. lp1 23:43 Arm band placed on. lp1 07/07 00:38 Julio Tristan PA is PHCP. jmm 00:38 Gael Peres DO is Attending Physician. jmm 01:00 Patient has correct armband on for positive identification. Placed in gown. Bed in low rr5 position. Call light in reach. Side rails up X2. Pulse ox on. NIBP on. 01:05 Dinh Zabala, RN is Primary Nurse. rr5 01:05 First set of blood cultures drawn by me, Second set of blood cultures drawn by me. ds4 01:22 Inserted saline lock: 20 gauge in right forearm, using aseptic technique. Blood ds4 collected. 02:20 CT Abd/Pelvis - IV Contrast Only In Process Unspecified. EDMS 05:33 No provider procedures requiring assistance completed. Patient admitted, IV remains in rr5 place. intact, No redness/swelling at site. Administered Medications: 07/06 23:49 Drug: Tylenol 1000 mg Route: PO; lp1 07/07 01:00 Follow up: Response: No adverse reaction; Temperature is decreased rr5 02:30 Drug: Rocephin 1 grams Route: IV; Rate: calculated rate; Site: right forearm; rr5 03:09 Follow up: Response: No adverse reaction; IV Status: Completed infusion; IV Intake: [id number] 02:30 Drug: NS 0.9% 500 ml Route: IV; Rate: bolus; Site: right forearm; rr5 03:09 Follow up: Response: No adverse reaction; IV Status: Completed infusion; IV Intake: rr5 500ml 04:30 Drug: Zosyn 3.375 grams Route: IVPB; Infused Over: 60 mins; Site: right forearm; rr5 05:33 Follow up: Response: No adverse reaction; IV Status: Completed infusion; IV Intake: rr5 100ml Intake: 03:09 IV: 10ml; Total: 10ml. rr5 03:09 IV: 500ml; Total: 510ml. rr5 05:33 IV: 100ml; Total: 610ml. rr5 Outcome: 04:08 ER care complete, transfer ordered by . ms3 05:33 Transferred by [facility] to [facility], Transfer form completed. rr5 05:33 Condition: stable 05:33 Instructed on the need for admit. 05:34 Patient left the ED. rr5 Signatures: Dispatcher [employer] EDMS Julio Tristan PA PA jmm Pena, Laura RN RN lp1 Lopez Alan ds4 Dinh Zabala RN RN rr5 Kim Dudley cf2 Gael Peres, DO ESCALANTE ms3
[2019-07-08 05:48] VITALS: TEMP 98.4; O2SAT 99
[2019-07-08 05:49] VITALS: BP 137/51
--- NOTE | 2019-07-08 09:40 | RAD REPORT ---
EXAM DESCRIPTION: CT - Abdomen Pelvis W Contrast - 07/08/2019 4:17 am ADDENDUM #1 THIS REPORT CONTAINS FINDINGS THAT MAY BE CRITICAL TO PATIENT CARE: The findings were verbally discussed via telephone conference with Dr. NOHEMY COURTNEY by Dr. Loco Callaway on 07/07 2:29 AM CDT .The results were acknowledged and understood. IMPRESSION: 1. Mild/moderate left hydroureteronephrosis is present secondary to a 6 mm left UVJ ca lculus. 2. Dilated fluid-filled minimally enhancing appendix. Findings may be secondary to an early acute a ppendicitis. Electronically signed by: Desiree Callaway MD 07/08/2019 2:31 AM CDT End of Addendum EXAM DESCRIPTION: CT Abdomen and Pelvis With Intravenous Contrast CLINICAL HISTORY: The patient is 84 years old and is Female; abdominal pain, fever TECHNIQUE: Axial computed tomography images of the abdomen and pelvis with intravenous contrast. S agittal and coronal reformatted images were created and reviewed. This CT exam was performed using one or more of the following dose reduction techniques: automated exposure control, adjustment of t he mA and/or kV according to patient size, and/or use of iterative reconstruction technique. COMPARISON: No relevant prior studies available. FINDINGS: LUNG BASES: Unremarkable. No mass. No consolidation. ABDOMEN: LIVER: The liver is enlarged and fatty. GALLBLADDER AND BILE DUCTS: Surgical clips are present in the right upper quadrant, consistent w ith previous cholecystectomy. PANCREAS: No ductal dilation. No mass. SPLEEN: Unremarkable. ADRENALS: Unremarkable. No mass. KIDNEYS AND URETERS: Mild/moderate left hydroureteronephrosis is present secondary to a 6 mm lef t UVJ calculus. Left perinephric and periureteral stranding is present. The right kidney is normal. STOMACH AND BOWEL: Stomach is decompressed. The small bowel is normal in caliber. Minimal stool is present throughout colon. There is no mucosal thickening or evidence of bowel obstruction. PELVIS: APPENDIX: The appendix is dilated measuring up to 1.0 cm. The appendix is diffusely low in atten uation. Mild enhancement of the appendiceal wall is present. There is no surrounding inflammation or fluid. BLADDER: The bladder is moderately distended. REPRODUCTIVE: The patient is status post hysterectomy. ABDOMEN and PELVIS: INTRAPERITONEAL SPACE: Unremarkable. No free air. No significant fluid collection. BONES/JOINTS: Minimal degenerative change of the spine is present. SOFT TISSUES: The soft tissues are normal. VASCULATURE: Atherosclerosis of the vasculature is present. The vessels are normal in caliber. No abdominal aortic aneurysm. LYMPH NODES: Unremarkable. No enlarged lymph nodes. OTHER FINDINGS: Suggestion of a small right iliopsoas bursa/bursitis is noted. IMPRESSION: 1. Mild/moderate left hydroureteronephrosis is present secondary to a 6 mm left UVJ ca lculus. 2. Dilated fluid-filled minimally enhancing appendix. Findings may be secondary to acute appendicit is. Electronically signed by: Desiree Callaway MD 07/08/2019 2:27 AM CDT Due to temporary technical issues with the PACS/Fluency reporting system, reports are being signed by the in house radiologist as a courtesy to ensure prompt reporting. The interpreting radiologist is f ully responsible for the content of the report.
== END 2019-07-08 05:34 | disposition short-term general hospital (02) ==
LOC: ER 23:12
DX: K35.80 Unspecified acute appendicitis (principal); N13.2 Hydronephrosis with renal and ureteral calculous obstruction; I10 Essential (primary) hypertension; E78.5 Hyperlipidemia, unspecified; Z86.73 Personal history of transient ischemic attack (TIA), and cerebral infarction without residual deficits; Z79.82 Long term (current) use of aspirin
CPT/HCPCS: 96365; 96367; 87040 ×2; 85025; 80048; 36415; 80076; 83605 ×2; 81003; 84484; 83690; 84145; 74177; 99285; Q9967; J2543; J0696; J7030

== ENCOUNTER 2021-02-23 05:42 | Inpatient (IN) | payer MEDICARE ==
--- OUTSIDE RECORDS SUMMARY | 2021-02-23 05:46 | XMS REPORT | Continuity of Care Document ---
:1935 Author Organization [facility] t Address [address] [place] [address] Care Team Providers Name Role Phone Carmelita MURGUIA Primary Care Physician GABRIELA LI Attending Clinician Unavailable Braulio ERIC Attending Clinician Unavailable Braulio Alvarez Attending Clinician Larissa Germain MD Attending Clinician Larissa GERMAIN Attending Clinician Unavailable Beto MURGUIA Attending Clinician Provider, Urgent Care Attending Clinician Unavailable Sarahi MURGUIA, A Attending Clinician Herbie Scott DO Attending Clinician Doctor Unassigned, Name Attending Clinician Unavailable 1, Lab Attending Clinician Unavailable Lab, Fam Pob I Attending Clinician Unavailable Kedar Attending Clinician Unavailable Jono Villalobos Attending Clinician [phone] Angela Attending Clinician Unavailable GABRIELA LI Admitting Clinician Unavailable LANE HARTMANN Admitting Clinician Unavailable Payers Payer Name Policy Type Policy Number Effective Date Expiration Date S ource Sliding Fee - Cat P [id number] 2019 2020 1 00:00:00 00:00:00 AARP/MEDICARE [id number] 2019 COMPLETE 00:00:00 COVID19 [id number] Problems Condition Condition Condition Status Onset Resolution Last Treating Co mments Source Name Details Category Date Date Treatment Clinician Date Venous Venous Disease Active 2020-02 Univers reflux reflux 2-09 ity of 00:00: [place] 00 Medical Branch Edema of Edema of Disease Active 2020-02 Unive rs both legs both legs 2-09 ity of 00:00: [place] 00 Medical Branch Decreased Decreased Disease Active 2020-02 Uni vers appetite appetite 2-06 ity of 00:00: [place] [facility] Asthma in Asthma in Disease Active Uni vers adult, adult, 8-29 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: [place]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 00 Me dical , , Branch uncomplica uncomplica kendrick kendrick 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 9-30 it y of hypothyroi [place]othyroi [place] dis[place] dism 00 [facility] Memory Memory Disease Active Univers impairment impairment 9-25 it y of 00:00: Medical Branch Hair loss Hair loss Disease Active Uni vers 9-25 ity of 00:00: [place] 00 Medical Branch COVID-19 COVID-19 Disease Active Unive rs virus virus 7-20 [place] GERD GERD Disease Active Univers (gastroeso (gastroeso 7-20 it y of phageal phageal 00:00: [place] reflux reflux 00 Medical disease) disease) Branch Neuropathy Neuropathy Disease Active U nivers of both of both 7-20 ity of feet feet 00:00: Medical Branch Bilateral Bilateral Disease Active 2018-02 Uni vers foot pain foot pain 1-26 ity of 00:00: [place] 00 Medical Branch Kidney Kidney Disease Active 2017-02 Univers stone stone 0-15 ity of 00:00: 00 Medical Branch Abnormal Abnormal Disease Active 2017-02 Overview: Un briana liver liver 0-15 Formattin ity of ultrasound ultrasound 00:00: g of this 00 note Medical might be Branch different from the original. Likely hepatic steatosis with focal areas of fatty sparing Weakness Weakness Disease Active Unive rs 4-25 ity of 00:00: [place] 00 Medical Branch 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 0-05 it y of 2 diabetes 2 diabetes [place] mellitus mellitus 00 Medica l Branch Essential Essential Disease Active 2016-02 Uni vers hypertensi hypertensi 0-02 it y of on on 00:00: [place] [address] Medical Branch HLD HLD Disease Active 2016-02 Univers (hyperlipi (hyperlipi 0-02 it y of demia) demia) 00:00: [place] [address] Medical Branch History of History of Disease Active 2016-02 U nivers chest pain chest pain 0-02 it y of 00:00: [place] [address] Medical Branch Palpitatio Palpitatio Disease Active 2016-02 U nivers ns ns 0-02 ity of 00:00: [place] [address] Medical Branch Osteoporos Osteoporos Disease Active U nivers is is ity of [facility] Abnormal Abnormal Disease Active Unive rs EKG EKG ity of [facility] No known No known Disease [facility] active active College problems problems of Medicin e Allergies, Adverse Reactions, Alerts Allergy Allergy Status Severity Reaction(s) Onset Inactive Treating Comm ents Source Name Type Date Date Clinician NO KNOWN Allergy Active [facility] NO KNOWN Drug Active Univers ALLERGIE Class ity of [facility] Social History Social Habit Start Date Stop Date Quantity Comments Source Exposure to Not sure [facility] SARS-CoV-2 [place] [facility] (event) [place] Alcohol intake 2021-01-21 2021-01-21 Current [facility] 00:00:00 00:00:00 non-drinker of [facility] alcohol (finding) [place] Tobacco use and 2019-10-07 2019-10-07 Smokeless tobacco [facility] College of exposure 00:00:00 00:00:00 non-user Medicine Sex [birth year] [facility] llege of 00:00:00 00:00:00 Medicine Smoking Status Start Date Stop Date Source Never smoker [facility] Medications Ordered Filled Start Stop Current Ordering Indication Dosage Frequency Signature Comments Components Source Medication Medication Date Date Medication? Clinician (SIG) Name Name ATORVASTATI 2020-02 Yes [id number] 40mg TAKE 1 Univers N 40 mg 2-13 TABLET BY ity of tablet 00:00: MOUTH AT [place] [address] [facility] azelastine 2020-02 Yes [id number] 1{spray Use 1 Univers 137 mcg 2-02 } [place] in ity of (0.1 %) 00:00: each [place] nasal spray 00 nostril 2 Med ical (two) Branch times daily. Use in each nostril as directed fluticasone 2020-02 Yes [id number] 2{puff} Inhale 2 Univers propionate 2-02 Puffs 2 ity of (FLOVENT 00:00: (two) [place] HFA) 44 00 times Medical mcg/actuati daily. Branch on inhaler Rinse mouth after each use. mirtazapine 2020-02 Yes [id number] 7.5mg Take 1 Univers 7.5 mg 2-02 tablet by ity of tablet 00:00: mouth at [place] 00 bedtime. Medical Branch Magnesium 2020-02 Yes Take by [facility] 100 MG CAPS 1-10 mouth. Paul kebede 15:46: of 22 Medicin e Melatonin 2020-02 Yes Take by [facility] 10 MG TABS 1-10 mouth. [place] 15:46: of 22 Medicin e oxybutynin 2020-02 Yes 10mg Take 1 [facility] (DITROPAN 1-10 Tablet by Shanda ge XL) 10 MG 00:00: mouth of CR tablet 00 daily. Medicin e albuterol Yes [id number] 2{puff} Inhale 2 Univers (PROAIR 9-03 Puffs ity of HFA) 90 00:00: every 6 [place] mcg/actuati 00 (six) Medical on inhaler hours as Branc h needed for Wheezing or Shortness of Breath. hydroCHLORO Yes [id number] 25mg Take 1 Univers thiazide 25 6-07 tablet by ity of mg tablet 00:00: mouth [place] 00 daily. Medical Branch amLODIPine Yes [id number] 2.5mg Take 1 Univers 2.5 mg 6-07 tablet by ity of tablet 00:00: mouth [place] 00 daily. Medical Branch hydrochloro 2020-0 2020- No 25mg Take 25 mg [facility] thiazide 3-22 03-22 by mouth Colleg e (HYDRODIURI 16:58: 00:00 daily. of L) 25 MG 25 :00 Medicin tablet e Magnesium Yes Take by [facility] 100 MG CAPS 3-22 mouth. Shandag e 15:58: of 46 Medicin e Melatonin 0 Yes Take by [facility] 10 MG TABS 3-22 mouth. [place] 15:58: of 46 Medicin e hydrochloro 0 Yes 25mg Take 1 [facility] thiazide 3-22 Tablet by Colleg e (HYDRODIURI 00:00: mouth of L) 25 MG 00 daily. Medicin tablet e Potassium Yes Take 2 [facility] Citrate 3-22 tablets PO Colleg e (UROCIT-K 00:00: TID of 10) 10 MEQ 00 Medicin (1080 MG) e TBCR hydrochloro Yes 25mg Take 1 [facility] thiazide 3-22 Tablet by Colleg e (HYDRODIURI 00:00: mouth of L) 25 MG 00 daily. Medicin tablet e Potassium Yes Take 2 Art Citrate 3-22 tablets PO Colleg e (UROCIT-K 00:00: TID of 10) 10 MEQ 00 Medicin (1080 MG) e TBCR oxybutynin Yes 10mg Take 1 [facility] (DITROPAN 3-22 Tablet by Colle ge XL) 10 MG 00:00: mouth of CR tablet 00 daily. Medicin e oxybutynin 0 2020- No 10mg Take 1 [facility] (DITROPAN 3-22 11-10 Tablet by Kristine ege XL) 10 MG 00:00: 00:00 mouth of CR tablet 00 :00 daily. Medicin e Magnesium 2019-1 Yes Take by [facility] 100 MG CAPS 1-23 mouth. [facility] 17:00: of Medicin e Melatonin 2019-02 Yes Take by [facility] 10 MG TABS 1-23 mouth. [place] 17:00: of Medicin e hydrochloro 2019-02 Yes 25mg Take 25 mg [facility] thiazide 1-23 by mouth [place] (HYDRODIURI 17:00: daily. of L) 25 MG 06 Medicin tablet e Potassium 2019-02 Yes Take 2 Art Citrate 1-23 tablets PO Colleg e (UROCIT-K 00:00: TID of 10) 10 MEQ 00 Medicin (1080 MG) e TBCR Potassium 2019-02- No Take 2 [facility] Citrate 1-23 03-22 tablets PO Colle ge (UROCIT-K 00:00: 00:00 TID of 10) 10 MEQ 00 :00 Medicin (1080 MG) e TBCR levothyroxi 2019-02 Yes 25ug Take 25 [place] [facility] ne 1-02 mcg by [place] (SYNTHROID) 00:00: mouth. of 25 MCG 00 Medicin tablet e levothyroxi 2019-02 Yes 25ug Take 25 [place] [facility] ne 1-02 mcg by College (SYNTHROID) 00:00: mouth. of 25 MCG 00 Medicin tablet e levothyroxi 2019-02- No 25ug Take 25 [facility] ne 1-02 11-10 mcg by [place] (SYNTHROID) 00:00: 00:00 mouth. of 25 MCG 00 :00 Medicin tablet e aspirin 81 2019-02 Yes [id number] 81mg Take 1 Univers mg chewable 0-01 [id number] tablet by i ty of tablet 00:00: mouth 00 daily. Medical Branch losartan 2019-02 Yes [id number] 50mg Take 0.5 U nivers 100 mg 0-01 tablets by ity of tablet 00:00: mouth 2 [place] 00 (two) Medical times Branch daily. pantoprazol 2019-02 Yes [id number] 20mg Take 1 Univers e 20 mg EC 0-01 tablet by ity of tablet 00:00: mouth 00 daily. Medical Take 30 Branch mins before breakfast. atorvastati 2020-0 Yes [facility] n (LIPITOR) 6-13 College 40 MG 00:00: of tablet 00 Medicin e atorvastati 2020-0 Yes [facility] n (LIPITOR) 6-13 College 40 MG 00:00: of tablet 00 Medicin e atorvastati 2020-0 Yes [facility] n (LIPITOR) 6-13 College 40 MG 00:00: of tablet 00 Medicin e atorvastati 2020-0 Yes [facility] n (LIPITOR) 6-13 College 40 MG 00:00: of tablet 00 Medicin e amlodipine 2020-0 Yes [facility] (NORVASC) 5 6-02 College MG tablet 00:00: of 00 Medicin e amlodipine 2020-0 Yes [facility] (NORVASC) 5 6-02 College MG tablet 00:00: of 00 Medicin e amlodipine 2020-0 Yes [facility] (NORVASC) 5 6-02 College MG tablet 00:00: of 00 Medicin e amlodipine 2020-0 Yes [facility] (NORVASC) 5 6-02 College MG tablet 00:00: of 00 Medicin e losartan 2020-0 Yes [facility] (COZAAR) 5-30 College 100 MG 00:00: of tablet 00 Medicin e losartan 2020-0 Yes [facility] (COZAAR) 5-30 College 100 MG 00:00: of tablet 00 Medicin e losartan 2020-0 Yes [facility] (COZAAR) 5-30 College 100 MG 00:00: of tablet 00 Medicin e losartan 2020-0 Yes [facility] (COZAAR) 5-30 College 100 MG 00:00: of tablet 00 Medicin e (AMOXICILLI 2020-0 Yes Mirella 4 tablets [facility]) 500 MG 5-12 Jono by mouth Comm uni CAPS 00:00: Wilfredo every 1 hr ty 00 prior to Health appointmen t for premedicat ion aspirin EC 2018-0 Yes 81mg Take 81 mg B a[place] 81 MG 6-21 by mouth. College tablet 00:00: of 00 Medicin e aspirin EC 2018-0 Yes 81mg Take 81 mg [facility] [place] 81 MG 6-21 by mouth. College tablet 00:00: of 00 Medicin e aspirin EC 2018-0 Yes 81mg Take 81 mg [facility] 81 MG 6-21 by mouth. College tablet 00:00: of 00 Medicin e aspirin EC 2019-0 Yes 81mg Take 81 mg B [facility] 81 MG 6-21 by mouth. College tablet 00:00: of 00 Medicin e Immunizations Ordered Filled Immunization Date Status Comments [facility] e Immunization Name Name SARS-COV-2 COVID-19 2021-01-15 Completed Unive rsity of MODERNA BOOSTER 00:00:00 [facility] VACCINE Branch Influenza High Dose 2019-11-08 Completed Unive rsity of [place] 00:00:00 [facility] Influenza High Dose 2019-02-13 Completed Unive rsity of 00:00:00 [facility] TDAP 2017-11-10 Completed University of 00:00:00 [facility] Pneumococcal 2017-06-09 Completed [place] o f Polysaccharide, 00:00:00 [facility] PPSV23 (PNEUMOVAX) Branch Influenza High Dose 2016-11-14 Completed Unive rsity of 00:00:00 [facility] Vital Signs Vital Name Observation Time Observation Value Comments Source HEIGHT 2019-07-08 00:00:00 147.3 cm WEIGHT 2019-07-08 00:00:00 57.743 kg Systolic blood 2021-02-22 21:17:00 134 mm[Hg] Univer sity of pressure [facility] Diastolic blood 2021-02-22 21:17:00 67 mm[Hg] Unive rsity of pressure [facility] Heart rate 2021-02-22 21:17:00 67 /min Universi ty of [facility] Body temperature 2021-02-22 21:17:00 35.78 Monique Univ ersity of [facility] Body height 2021-02-22 21:17:00 147.3 cm Universi ty [facility] Body weight 2021-02-22 21:17:00 60.963 kg Universi ty [facility] BMI 2021-02-22 21:17:00 28.09 kg/m2 Universi ty [facility] Systolic blood 2020-12-23 21:48:00 137 mm[Hg] [facility] pressure Medicine Diastolic blood 2020-12-23 21:48:00 69 mm[Hg] [facility] Medicine Heart rate 2020-12-23 21:48:00 73 /min [facility] ollege of [facility] Body temperature 2020-12-23 21:48:00 36.83 Monique [facility] Respiratory rate 2020-12-23 21:48:00 15 /min [facility] Body height 2020-12-23 21:48:00 162.6 cm [facility] Body weight 2020-12-23 21:48:00 58.968 kg [facility] BMI 2020-12-23 21:48:00 22.31 kg/m2 [facility] Systolic blood 2020-05-04 15:57:00 131 mm[Hg] [facility] pressure Medicine Diastolic blood 2020-05-04 15:57:00 60 mm[Hg] [facility] pressure Medicine Heart rate 2020-05-04 15:57:00 67 /min [facility] ollege of Medicine Respiratory rate 2020-05-04 15:57:00 18 /min [facility] Body height 2020-05-04 15:57:00 147.3 cm [facility] ollege of [facility] Body weight 2020-05-04 15:57:00 58.514 kg [facility] ollege of [facility] BMI 2020-05-04 15:57:00 26.96 kg/m2 [facility] ollege of Medicine Systolic blood 2020-01-06 16:58:00 146 mm[Hg] [facility] pressure Medicine Diastolic blood 2020-01-06 16:58:00 71 mm[Hg] [facility] Medicine Heart rate 2020-01-06 16:58:00 88 /min [facility] ollege of [facility] Body temperature 2020-01-06 16:58:00 36.44 Monique [facility] Respiratory rate 2020-01-06 16:58:00 16 /min [facility] Body height 2020-01-06 16:58:00 144.8 cm [facility] ollege of [facility] Body weight 2020-01-06 16:58:00 58.968 kg [facility] BMI 2020-01-06 16:58:00 28.13 kg/m2 [facility] ollege of [facility] Systolic blood 2020-01-06 16:58:00 146 mm[Hg] [facility] Medicine Diastolic blood 2020-01-06 16:58:00 71 mm[Hg] [facility] Medicine Heart rate 2020-01-06 16:58:00 88 /min [facility] ollege of [facility] Body temperature 2020-01-06 16:58:00 36.44 Monique [facility] Respiratory rate 2020-01-06 16:58:00 16 /min [facility] Body height 2020-01-06 16:58:00 144.8 cm [facility] ollege of [facility] Body weight 2020-01-06 16:58:00 58.968 kg [facility] BMI 2020-01-06 16:58:00 28.13 kg/m2 [facility] ollege of [facility] Systolic blood 2019-10-07 14:05:00 127 mm[Hg] [facility] of pressure Medicine Diastolic blood 2019-10-07 14:05:00 67 mm[Hg] [facility] pressure Medicine Heart rate 2019-10-07 14:05:00 70 /min [facility] ollege [facility] Body temperature 2019-10-07 14:05:00 36.39 Monique [facility] Respiratory rate 2019-10-07 14:05:00 16 /min [facility] Body height 2019-10-07 14:05:00 162.6 cm [facility] ollege of [facility] Body weight 2019-10-07 14:05:00 58.968 kg [facility] BMI 2019-10-07 14:05:00 22.31 kg/m2 [facility] Systolic blood 2019-10-07 14:05:00 127 mm[Hg] [facility] Medicine Diastolic blood 2019-10-07 14:05:00 67 mm[Hg] [facility] Medicine Heart rate 2019-10-07 14:05:00 70 /min [facility] Body temperature 2019-10-07 14:05:00 36.39 Monique [facility] Respiratory rate 2019-10-07 14:05:00 16 /min [facility] Body height 2019-10-07 14:05:00 162.6 cm [facility] Body weight 2019-10-07 14:05:00 58.968 kg [facility] BMI 2019-10-07 14:05:00 22.31 kg/m2 [facility] HEIGHT 2019-07-08 00:00:00 147.3 cm WEIGHT 2019-07-08 00:00:00 57.743 kg pulse rate 2019-07-01 08:14:01 80 /min [facility] blood pressure, 2019-07-01 08:14:01 71 mm[Hg] [facility] blood pressure, 2019-07-01 08:14:01 171 mm[Hg] [facility] pulse rate 2019-06-25 09:35:00 76 /min [facility] blood pressure, 2019-06-25 09:35:00 77 mm[Hg] [facility] blood pressure, 2019-06-25 09:35:00 153 mm[Hg] [facility] Procedures Procedure Date / Time Performed Performing Clinician Sourc e POCT URINALYSIS 2020-12-23 00:00:00 Adams Germain [facility] Medicine POCT URINALYSIS 2020-01-06 00:00:00 Adams Germain [facility] BASIC METABOLIC PANEL 2019-10-07 14:32:00 Adams Germain [facility] MAGNESIUM 2019-10-07 14:32:00 Adams Germain [facility] Medicine URIC ACID 2019-10-07 14:32:00 Adams Germain [facility] Medicine Plan of Care Planned Activity Planned Date Details Comments Source Future Scheduled 2021-05-04 US RENAL BILATERAL Expected: [facility] College Test 00:00:00 [code = 11076] 05/04/2021, of Medicine Expires: 05/04/2021 Future Scheduled 2021-01-03 COVID-19 Vaccine (1) [place] [facility] Test 08:34:34 [code = COVID-19 of Medicine Vaccine (1)] Future Scheduled 2021-01-03 ZOSTER VACCINE (1 of [place] [facility] [place] Test 08:34:34 2) [code = ZOSTER of Medicin e VACCINE (1 of 2)] Future Scheduled 2021-01-03 Screening for [facility] Col lege Test 08:34:34 osteoporosis of Medicine (procedure) [code = 088181932] Future Scheduled 2021-01-03 Pneumococcal 65+ (1 [facility] Test 08:34:34 of 1 - PPSV23) [code of Medi cine = Pneumococcal 65+ (1 of 1 - PPSV23)] Future Scheduled 2021-01-03 MEDICARE AWV [facility] Kristien ege Test 08:34:34 (Initial) [code = of Medicin e MEDICARE AWV (Initial)] Future Scheduled 2021-01-03 FLU VACCINE > 6 [facility] C ollege Test 08:34:34 MONTHS [code = FLU of Medici ne VACCINE > 6 MONTHS] Future Scheduled 2021-01-03 FALL SCREEN [code = [facility] Test 08:34:34 FALL SCREEN] of Medicine Future Scheduled 2021-01-03 TETANUS SHOT (ADULT) [place] [facility] Test 08:34:34 [code = TETANUS SHOT of Medi cine (ADULT)] Diagnostic Test 2020-07-11 US RENAL BILATERAL Expected: [facility] Pending 00:00:00 [code = 07879] 07/11/2020, of Medicine Expires: 01/11/2021 Future Scheduled PTH,INTACT,WITH Ordered: [facility] C ollege Test CALCIUM,PO4,CREAT 10/07/2019 of Medicin e [code = NOCPT] Future Scheduled TETANUS SHOT (ADULT) [place] [facility] Test [code = TETANUS SHOT of Medi cine (ADULT)] Future Scheduled ZOSTER VACCINE (1 of [place] [facility] College Test 2) [code = ZOSTER of Medicin e VACCINE (1 of 2)] Future Scheduled OSTEOPOROSIS Art Kristine ege Test SCREENING [code = of Medicin e OSTEOPOROSIS SCREENING] Future Scheduled MEDICARE AWV Art Kristine ege Test (Initial) [code = of Medicin e MEDICARE AWV (Initial)] Future Scheduled FLU VACCINE > 6 Art C ollege Test MONTHS [code = FLU of Medici ne VACCINE > 6 MONTHS] Future Scheduled FALL SCREEN [code = [facility] Test FALL SCREEN] of Medicine Future Scheduled BMI FOLLOW UP PLAN [facility] Test [code = BMI FOLLOW of Medici ne UP PLAN] Future Scheduled ZOSTER VACCINE (1 of [place] [facility] College Test 2) [code = ZOSTER of Medicin e VACCINE (1 of 2)] Future Scheduled OSTEOPOROSIS [facility] Kristine ege Test SCREENING [code = of Medicin e OSTEOPOROSIS SCREENING] Future Scheduled MEDICARE IPPE [facility] Col lege Test (WELCOME TO of Medicine MEDICARE) [code = MEDICARE IPPE (WELCOME TO MEDICARE)] Future Scheduled FLU VACCINE > 6 [facility] C ollege Test MONTHS [code = FLU of Medici ne VACCINE > 6 MONTHS] Future Scheduled FALL SCREEN [code = [facility] Test FALL SCREEN] of Medicine Future Scheduled TETANUS SHOT (ADULT) [place] [facility] Test [code = TETANUS SHOT of Medi cine (ADULT)] Future Scheduled COVID-19 Vaccine (1) [place] [facility] Test [code = COVID-19 of Medicine Vaccine (1)] Future Scheduled BMI FOLLOW UP PLAN [facility] Test [code = BMI FOLLOW of Medici ne UP PLAN] Future Scheduled ZOSTER VACCINE (1 of [place] [facility] College Test 2) [code = ZOSTER of Medicin e VACCINE (1 of 2)] Future Scheduled Screening for [facility] Col lege Test osteoporosis of Medicine (procedure) [code = [id number]] Future Scheduled MEDICARE IPPE Art Col lege Test (WELCOME TO of Medicine MEDICARE) [code = MEDICARE IPPE (WELCOME TO MEDICARE)] Future Scheduled FLU VACCINE > 6 [facility] Denisha allen Test MONTHS [code = FLU of Medici ne VACCINE > 6 MONTHS] Future Scheduled FALL SCREEN [code = [facility] Test FALL SCREEN] of Medicine Future Scheduled TETANUS SHOT (ADULT) [place] [facility] College Test [code = TETANUS SHOT of Medi cine (ADULT)] Encounters Start End Encounter Admission Attending Care Care Encounter Source Date/Time Date/Time Type Type Clinicians Facility Department ID 2020-11-29 Outpatient [facility] [id number] [facility] 10:44:36 [id number] [facility] 2020-11-29 Outpatient [facility] [id number] [facility] 08:37:05 [id number] [facility] 2020-11-26 Outpatient [facility] [id number] [facility] 17:47:41 [id number] [facility] 2020-11-26 Outpatient [facility] [id number] [facility] 17:43:25 [id number] [facility] 2020-11-26 Outpatient [facility] [id number] [facility] 17:38:25 [id number] [facility] 2020-11-26 Outpatient [facility] [id number] [facility] 17:36:45 [id number] [facility] 2020-11-26 Outpatient [facility] [id number] [facility] 17:34:20 [id number] [facility] 2020-11-26 Outpatient [facility] [id number] [facility] 17:30:46 [id number] [facility] 2020-11-26 Outpatient [facility] [id number] [facility] 17:29:46 [id number] [facility] 2020-11-17 Inpatient ER GUILLERMO, [facility] [id number] [facility] 14:52:09 LILIANA 2021-04-05 2021-04-05 Outpatient Braulio [facility] [id number] Univers 10:30:00 10:30:00 KWAKU [id number] ity of [facility] 2021-02-22 2021-02-22 Office LAST Eric [id number] [facility] 14:30:00 15:00:00 Visit Kwaku [facility] [id number] ity [facility] [id number] Joan manning [id number] Medi angelica 205 Branch 2021-02-22 2021-02-22 Outpatient R [facility] [id number] Univers 14:30:00 14:30:00 KWAKU karina [facility] 2020-12-23 2020-12-23 Office Link, [place] [id number] [facility] 16:00:00 16:15:00 Visit Adams Kebdee AMBULATOR [id number] College Y [id number] of [id number] [facility] raimundo 300 e 2020-05-04 2020-05-04 Office LINK, [facility] [id number] [facility] 10:43:07 12:09:48 Visit ADAMS AMBULATOR [id number] College Y [id number] of [id number] [facility] raimundo 300 e 2020-04-29 2020-04-29 Telephone [facility] [facility] [id number] 00:00:00 00:00:00 Daniel [place] 350.1.13.10 [place] 4.2.7.2.686 Professio [phone] [address] 2020-04-29 2020-04-29 [facility] 1.2.840.114 [id number] 00:00:00 00:00:00 Daniel [place] 350.1.13.10 [place] 4.2.7.2.686 Professio [phone] [facility] [address] [place] [address] 2020-04-25 2020-04-25 Urgent Provider, [facility] [[email or web address]] [id number] 10:12:47 10:32:47 Care Ang [facility] 350.1.13.10 Care [place] 4.2.7.2.686 Professio [phone] nal [facility] 2020-04-15 2020-04-15 Telephone Sarahi [facility] [[email or web address]] 1.2.840.114 [id number] 00:00:00 00:00:00 Wondiful [facility] 350.1.13.10 [place] 4.2.7.2.686 Professio [phone] nal 044 [address] One 2020-03-07 2020-03-07 Patient Tyler [facility] [[email or web address]] 1.2.840.114 [id number] 00:00:00 00:00:00 Outreach Ethan PRIMARY 350.1.13.10 [facility] 4.2.7.2.686 LIZ [phone] 388 2020-01-16 2020-01-16 Telemedici Sarahi [facility] [[email or web address]] 1.2.840.114 [id number] 16:09:25 16:24:25 ne Visit Jamilful [facility] 350.1.13.10 [place] 4.2.7.2.686 Professio [phone] nal [facility] 2020-01-12 2020-01-12 Orders Doctor LILLIANA 1.2.840.114 [id number] 00:00:00 00:00:00 Only Unassigned, [place] 350.1.13.10 [place] [facility] 4.2.7.2.686 [phone] 009 2020-01-06 2020-01-06 Office Link, [facility] 1.2.840.114 [id number] 10:46:16 11:44:31 Visit Adams E AMBULATOR 350.1.13.21 Y 0.2.7.2.686 [phone] 300 2020-01-06 2020-01-06 Office Link, [facility] 1.2.840.[id number] [place] [address] 10:46:16 11:44:31 Visit Adams E AMBULATOR 350.1.13.21 College Y 0.2.7.2.686 of [phone] [facility] 300 e 2019-12-16 2019-12-16 Case Parkman [facility] [[email or web address] 1.2.840.114 [id number] 00:00:00 00:00:00 Management Antwandiful [facility] 350.1.13.10 [place] 4.2.7.2.686 Professio [phone] nal 044 Office Building One 2019-12-12 2019-12-12 Runner Out 1, Adc Lab [facility] [[email or web address]] 1.2.840.114 [id number] 09:36:54 09:51:54 Visit Kimberly 350.1.13.10 [place] 4.2.7.2.686 [place] [phone] 353 2019-12-12 2019-12-12 [place] Sarahi [facility] [[email or web address]] 1.2.840.114 [id number] 00:00:00 00:00:00 Wondiful [facility] 350.1.13.10 [place] 4.2.7.2.686 Professio [phone] [place] [address] Office Building One 2019-12-05 2019-12-05 Orders Doctor LILLIANA 1.2.840.114 [id number] 00:00:00 00:00:00 Only Unassigned, MACKENZIE 350.1.13.10 [place] [facility] 4.2.7.2.686 [phone] 009 2019-11-14 2019-11-14 Case Sarahi [facility] [[email or web address]] 1.2.840.114 [id number] 00:00:00 00:00:00 Management [facility] 350.1.13.10 [place] 4.2.7.2.686 Professio [phone] [place] [address] Office Building One 2019-11-13 2019-11-13 [facility] 1.2.840.114 [id number] 00:00:00 00:00:00 Management W[facility] 350.1.13.10 [place] 4.2.7.2.686 Professio [phone] [place] [address] Office Building One 2019-11-08 2019-11-08 [facility] 1.2.840.114 [id number] 09:44:58 11:00:23 Visit Wondiful [facility] 350.1.13.10 [place] 4.2.7.2.686 Professio [phone] [place] [address] Office Building One 2019-10-07 2019-10-07 Office Link, [facility] 1.2.840.114 [id number] 08:45:50 10:08:26 Visit Adams Kebede AMBULATOR 350.1.13.21 Y 0.2.7.2.686 [phone] 300 2019-10-07 2019-10-07 Office Link, [place] 1.2.840.[id number] [place] [address] 08:45:50 10:08:26 Visit Adams Kebede AMBULATOR 350.1.13.21 College Y 0.2.7.2.686 of [phone] Medi raimundo 300 e 2019-08-29 2019-08-29 Urgent Lab, Adc [facility] [[email or web address]] 1.2.840.114 [id number] 11:00:00 11:20:00 Care Fam Pramodb I Health 350.1.13.10 [place] 4.2.7.2.686 Professio [phone] nal 044 Office Building One 2019-07-30 2019-07-30 Office ADRIAN Thacker Encounter / Legacy 00:00:00 00:00:00 Visit Renata [id number] Com natalee [id number] ty Health 2019-07-01 2019-07-01 Office Wilfredo, NICOLASA LC Encounter/ Legacy 00:00:00 00:00:00 Visit Mirella [id number] Com natalee Jono [id number] ty Health 2019-07-01 2019-07-01 [facility] 00:00:00 00:00:00 Visit Mirella [id number] Com natalee Jono [id number] ty Health 2019-07-01 2019-07-01 Office WilfredoMirella [facility] LC Encounter/ Legacy 00:00:00 00:00:00 Visit Shy Miller [id number] [address] [place] [address] 798996 ty Health 2019-06-25 2019-06-25 Office WilfredoNICOLASA [facility] Encounter/ Legacy 00:00:00 00:00:00 Visit Mierlla [id number] Com natalee Jono [id number] ty Health 2019-06-25 2019-06-25 Office Wilfredo, [facility] LC Encounter/ Legacy 00:00:00 00:00:00 Visit Mirella [id number] Com natalee Jono 100123 ty Health 2019-06-25 2019-06-25 Office Wilfredo, [facility] LC Encounter/ Legacy 00:00:00 00:00:00 Visit Mirella [id number] Com natalee Jono [id number] ty Health 2019-06-25 2019-06-25 Office WilfredoMirella willingham [facility] LC Encounter/ Legacy 00:00:00 00:00:00 Visit Renata Thacker [phone] [address] [place] [address] 226528 Health Results Test Description Test Time Test Comments Results Result Comments Source POCT URINALYSIS DIPSTICK 2020-12-23 00:00:00 Test Item Value Reference Range Interpretation Comme nts COLOR UA (test code = 5778-6) Yellow YELLOW/STRAW CLARITY UA (test code = 46055-4) Clear CLEAR GLUCOSE UA (test code = 5792-7) Negative NEGATIVE BILIRUBIN UA (test code = 5770-3) Negative NEGATIVE KETONES UA (test code = 40013-3) Negative NEGATIVE SPECIFIC GRAVITY UA (test code = 5811-5) 1.005-1.035 A BLOOD UA (test code = 5794-3) Hemolyzed Trace NEGATIVE PH UA (test code = 5803-2) 5-9 PROTEIN UA (test code = 5804-0) Negative NEGATIVE UROBILINOGEN UA (test code = 5818-0) 0.02 E.U/DL NORMAL MG/DL LEUKOCYTE ESTERASE UA (test code = 5799-2) Negative NEGATIVE NITRITE UA (test code = 5802-4) Negative NEGATIVE REDUCING SUBSTANCES URINE (test code = 93378-2) NEGATI VE Lab Interpretation (test code = 69852-8) Abnormal [facility] [id number] 00:00:00 Test Item Value Reference Range Interpretation Comments COLOR UA (test code = 5778-6) Light Yellow YELLOW/STRAW CLARITY UA (test code = Cloudy CLEAR 56540-5) GLUCOSE UA (test code = Negative NEGATIVE 5792-7) BILIRUBIN UA (test code = Negative NEGATIVE 5770-3) KETONES UA (test code = Negative NEGATIVE 27078-2) SPECIFIC GRAVITY UA (test 1.005-1.035 code = 5811-5) BLOOD UA (test code = 5794-3) Hemolyzed Trace NEGATIVE PH UA (test code = 5803-2) 5-9 PROTEIN UA (test code = Trace NEGATIVE 5804-0) UROBILINOGEN UA (test code = 0.02 E.U/DL NORMAL MG/DL 5818-0) LEUKOCYTE ESTERASE UA (test Negative NEGATIVE code = 5799-2) NITRITE UA (test code = Trace NEGATIVE 5802-4) REDUCING SUBSTANCES URINE (test code = 85597-6) [id number] 11:28:02 Test Item Value Reference Range Interpretation Comments MAGNESIUM (test code = See_Comment Unless Otherwise 03557-8) Indicated, All Testing Performed At: [facility], [address] [place] [address], [place] [address] Laboratory Di laurent: Tani rogers M.D. CLIA Number [id number] [place] [id number] [Auto mated message] The sy stem which generated this result transmitted ref erence range: 1.6 - 2. 6 MG/DL. The reference r nanci was not used to int erpret this result as minor l/abnormal. [facility] METABOLIC [id number] 08:53:12 Test Item Value Reference Range Interpretation Comments GLUCOSE (test code = See_Comment H [Autom ated message] 2345-7) The system [email or web address] generated this result transmitted ref erence range: 70 - 99 MG/DL. The reference r nanci was not used to interpret this result as normal/abnor mal. BLOOD UREA NITROGEN See_Comment [Automa kendrick message] (test code = 3091-6) The sys tem which generated this result transmitted ref erence range: 8 - 23 M G/DL. The reference r nanci was not used to interpret this result as normal/abnor mal. CREATININE (test code = See_Comment L [Au tomated message] 2160-0) The system [email or web address] generated this result transmitted ref erence range: 0.60 - 1 .30 MG/DL. The refe rence range was not u sed to interpret this result as normal/abnor mal. EGFR AA (test code = See_Comment [Autom ated message] 01426-8) The system [email or web address] generated this result transmitted ref erence range: >60 ML/MIN/1.73. Th e reference range was not used to int erpret this result as normal/abnormal . EGFR (test code = See_Comment [Automate d message] 58577-0) The system [email or web address] generated this result transmitted ref erence range: >60 ML/MIN/1.73. Th e reference range was not used to int erpret this result as normal/abnormal . SODIUM (test code = See_Comment [Automa kendrick message] 2951-2) The system [email or web address] generated this result transmitted ref erence range: 133 - 14 6 MEQ/L. The refe rence range was not u sed to interpret this result as normal/abnor mal. POTASSIUM (test code = See_Comment [Aut omated message] 2822-3) The system [email or web address] generated this result transmitted ref erence range: 3.5 - 5. 4 MEQ/L. The refe rence range was not u sed to interpret this result as normal/abnor mal. CHLORIDE (test code = See_Comment [Auto mated message] ) The system [email or web address] generated this result transmitted ref erence range: 95 - 107 MEQ/L. The reference r nanci was not used to interpret this result as normal/abnor mal. CO2 (test code = See_Comment [Automated message] 1962-09) The system [email or web address] generated this result transmitted ref erence range: 19 - 31 MEQ/L. The reference r nanci was not used to interpret this result as normal/abnor mal. CALCIUM (test code = See_Comment Unless 39271-4) Otherwise Indic ated, All Testing Per formed At: [facility], [address] [place], [place] [address] Laboratory Dire ctor: Tani rogers M.D. CLIA Num jovanni [id number] Cap Accreditation N o. [Auto mated message] The sy stem which generated this result transmit kendrick reference range : 8.5 - 10.5 MG/DL. The reference range was not used to int erpret this result as normal/abnormal . Lab Interpretation Abnormal (test code = 31721-7) [facility] [id number] 08:53:12 Test Item Value Reference Range Interpretation Comments URIC ACID (test code See_Comment Unless Otherwise = 1365041) Indicated, All Testing Performed At: [facility], [address] [place] [address] 7875 4 Laboratory Dire ctor: Tani Vazquez M.D. CLIA Number [id number] Cap Accreditation N o. 86622-46 [Automated mess age] The system which ge nerated this result transmit kendrick reference range: 2.7 - 6. 1 MG/DL. The reference range was not used to interpret th is result as normal/abnormal . [facility], FLUORO, NON-SPECIFIC, UP TO 1 [id number] 09:44:00Reason for exam:->cystoFINAL REPORT A fluoroscopic unit was utilized for a procedure performed in the operating room. No interpretation was requested. Please refer to the operative report regarding findings. Please refer to PACS for patient radiation dose information. Signed: JR Elizabeth, Alla Mast Verified Date/Time: 07/14/2019 09:44:15 Reading Location: [facility] C013V Neuro Reading Room BLOOD [id number] 11:00:00 Test Item Value Reference Range Interpretation Comments CULTURE (BEAKER) (test No growth in 5 days code = 1095) BLOOD [id number] 11:00:00 Test Item Value Reference Range Interpretation Comments CULTURE (BEAKER) (test No growth in 5 days code = 1095) URINE [id number] 11:07:00 Test Item Value Reference Range Interpretation Comments CULTURE (BEAKER) (test code = 1095) No growth ANG, NEPHROSTOMY, PERC, EXTERNAL [id number] 11:00:00Reason for exam:- >request left PCN for left obstructing stone, feversFINAL REPORT Procedure: Percutaneous nephrostomy catheter placement. History: Left ureteric calculus with obstruction, infection. Repairer Cylinder Heads: Bradford Martin M.D. Brim Edge Trimmer: Nargis mckeon M.D. Modality: Ultrasound and fluoroscopy. DOSE REDUCTION: The examination was performed according to departmental dose-optimization program. Fluoro time: 1.1 minutes Radiation dose: 18.9 mGy air Kerma. Number of images: 8 Sedation: Versed 1 mg and fentanyl 50 mcg was given intravenously for conscious sedation. Vital signs were monitored throughout the procedure by a dedicated RN under direct supervision of Dr. Martin, and remained stable. Physician intra-service sedation time was 15 minutes. Anesthesia: Lidocaine local infiltration Medicines: Not applicable Contrast medium: Isovue 300, 15 cc. Estimated blood loss: < 5 cc. Technique: A discussion of the risks, benefits, and alternatives was carried out with the patient. A written informed consent was obtained. The patient expressed understanding and agreed to proceed. A universal timeout was performed prior to starting the procedure. The procedure room personnel used personal protective equipment. The operators used sterile gowns and gloves. The patient was laid pr one on the procedure table. The percutaneous nephrostomy site was prepped with chlorhexidine gluconate and draped in the maximal sterile fashion. Using aseptic precautions an ultrasonographic evaluation was performed. There was hydronephrosis and hydroureter. Pertinent ultrasound images were stored for documentation in the PACS. An pole posterior calyx was selected for access. After local anesthesia and dermatotomy, under real-time ultrasonographic guidance, a 21-gauge Chiba needle was advanced into the calyx. After confirming the recovery of urine, a guidewire was advanced into the collecting system under fluoroscopic guidance. Contrast injection confirmed satisfactory position of the access system. Over the wire, following sequential dilatation of the tract, an 8.5 Qatari nephrostomy catheter was placed, pigtail locked in the renal pelvis. Contrast injection confirmed satisfactory position of the nephrostomy catheter. The catheter was secured to skin with nonabsorbable suture and connected to a gravity drainage bag. An aseptic dressing was applied. The patient was transferred to the recovery area and discharged from the department in stable condition. Complications: None immediate. Findings:As above. Obstruction in the distal ureter was not seen. The calculusprobably has passed on into the bladder. Impression:Successful ultrasound and fluoroscopic guided 8.5 Qatari nephrostomy catheter placement leftkidney via a posterior inferior calyx as described above. Further management dictated by the clinical scenario. The nephrostomy catheter(s) should be exchanged at the latest in three months. Thank you for the opportunity to assist in the care of your patient. Signed: Bradford Martin MDReport Verified Date/Time: 07/10/2019 11:00:12 Reading Location: [place] [address] Angio Body Reading Room Electronically signed by: Kwesi PETERSON 07/10/2019 11:00 AM BASIC METABOLIC [id number] 07:33:00 Test Item Value Reference Range Interpretation Comments SODIUM (BEAKER) (test 139 meq/L 136-145 code = 381) POTASSIUM (BEAKER) 3.6 meq/L 3.5-5.1 (test code = 379) CHLORIDE (BEAKER) 106 meq/L 98-107 (test code = 382) CO2 (BEAKER) (test 26 meq/L 22-29 code = 355) BLOOD UREA NITROGEN 8 mg/dL 7-21 (BEAKER) (test code = 354) CREATININE (BEAKER) 0.65 mg/dL 0.57-1.25 (test code = 358) GLUCOSE RANDOM 115 mg/dL 70-105 H (BEAKER) (test code = 652) CALCIUM (BEAKER) 8.8 mg/dL 8.4-10.2 (test code = 697) EGFR (BEAKER) (test INSUFFIC IENT CLINICAL code = 1092) DATA TO CALCULA TE ESTIMATED GFR. Industrial Insulator ID - MONIE [id number] 07:25:00 Test Item Value Reference Range Interpretation Comments MAGNESIUM (BEAKER) (test code = 2.2 mg/dL 1.6-2.6 627) Industrial Insulator ID - MONIE CHEPATIC FUNCTION [id number] 07:25:00 Test Item Value Reference Range Interpretation Comments TOTAL PROTEIN (BEAKER) (test code = 7.3 gm/dL 6.0-8.3 770) ALBUMIN (BEAKER) (test code = 1145) 4.1 g/dL 3.5-5.0 BILIRUBIN TOTAL (BEAKER) (test code 0.5 mg/dL 0.2-1.2 = 377) BILIRUBIN DIRECT (BEAKER) (test 0.3 mg/dL 0.1-0.5 code = 706) ALKALINE PHOSPHATASE (BEAKER) (test 116 U/L 40-150 code = 346) AST (SGOT) (BEAKER) (test code = 49 U/L 5-34 H 353) ALT (SGPT) (BEAKER) (test code = 43 U/L 6-55 347) Industrial Insulator ID - MONIE CCBC W/PLT COUNT & AUTO [id number] 06:54:00 Test Item Value Reference Range Interpretation Comments WHITE BLOOD CELL COUNT (BEAKER) 7.5 K/ L 3.5-10.5 (test code = 775) RED BLOOD CELL COUNT (BEAKER) 4.26 M/ L 3.93-5.22 (test code = 761) HEMOGLOBIN (BEAKER) (test code = 12.4 GM/DL 11.2-15.7 410) HEMATOCRIT (BEAKER) (test code = 36.8 % 34.1-44.9 411) MEAN CORPUSCULAR VOLUME (BEAKER) 86.4 fL 79.4-94.8 (test code = 753) MEAN CORPUSCULAR HEMOGLOBIN 29.1 pg 25.6-32.2 (BEAKER) (test code = 751) MEAN CORPUSCULAR HEMOGLOBIN CONC 33.7 GM/DL 32.2-35.5 (BEAKER) (test code = 752) RED CELL DISTRIBUTION WIDTH 13.2 % 11.7-14.4 (BEAKER) (test code = 412) PLATELET COUNT (BEAKER) (test 315 K/CU MM 150-450 code = 756) MEAN PLATELET VOLUME (BEAKER) 9.7 fL 9.4-12.3 (test code = 754) NUCLEATED RED BLOOD CELLS 0 /100 WBC 0-0 (BEAKER) (test code = 413) NEUTROPHILS RELATIVE PERCENT 50 % (BEAKER) (test code = 429) LYMPHOCYTES RELATIVE PERCENT 35 % (BEAKER) (test code = 430) MONOCYTES RELATIVE PERCENT 11 % (BEAKER) (test code = 431) EOSINOPHILS RELATIVE PERCENT 3 % (BEAKER) (test code = 432) BASOPHILS RELATIVE PERCENT 0 % (BEAKER) (test code = 437) NEUTROPHILS ABSOLUTE COUNT 3.76 K/ L 1.56-6.13 (BEAKER) (test code = 670) LYMPHOCYTES ABSOLUTE COUNT 2.67 K/ L 1.18-3.74 (BEAKER) (test code = 414) MONOCYTES ABSOLUTE COUNT (BEAKER) 0.83 K/ L 0.24-0.36 H (test code = 415) EOSINOPHILS ABSOLUTE COUNT 0.23 K/ L 0.04-0.36 (BEAKER) (test code = 416) BASOPHILS ABSOLUTE COUNT (BEAKER) 0.03 K/ L 0.01-0.08 (test code = 417) IMMATURE GRANULOCYTES-RELATIVE 0 % 0-1 PERCENT (BEAKER) (test code = 2801) BASIC METABOLIC [id number] 05:38:00 Test Item Value Reference Range Interpretation Comments SODIUM (BEAKER) (test 139 meq/L 136-145 code = 381) POTASSIUM (BEAKER) 3.1 meq/L 3.5-5.1 L (test code = 379) CHLORIDE (BEAKER) 106 meq/L 98-107 (test code = 382) CO2 (BEAKER) (test 27 meq/L 22-29 code = 355) BLOOD UREA NITROGEN 5 mg/dL 7-21 L (BEAKER) (test code = 354) CREATININE (BEAKER) 0.53 mg/dL 0.57-1.25 L (test code = 358) GLUCOSE RANDOM 104 mg/dL 70-105 (BEAKER) (test code = 652) CALCIUM (BEAKER) 7.9 mg/dL 8.4-10.2 L (test code = 697) EGFR (BEAKER) (test INSUFFIC IENT CLINICAL code = 1092) DATA TO CALCULA TE ESTIMATED GFR. Industrial Insulator ID - [id number] 05:24:00 Test Item Value Reference Range Interpretation Comments MAGNESIUM (BEAKER) (test code = 1.8 mg/dL 1.6-2.6 627) Industrial Insulator ID - LAHEPATIC FUNCTION [id number] 05:24:00 Test Item Value Reference Range Interpretation Comments TOTAL PROTEIN (BEAKER) (test code = 6.2 gm/dL 6.0-8.3 770) ALBUMIN (BEAKER) (test code = 1145) 3.4 g/dL 3.5-5.0 L BILIRUBIN TOTAL (BEAKER) (test code 0.5 mg/dL 0.2-1.2 = 377) BILIRUBIN DIRECT (BEAKER) (test 0.3 mg/dL 0.1-0.5 code = 706) ALKALINE PHOSPHATASE (BEAKER) (test 90 U/L 40-150 code = 346) AST (SGOT) (BEAKER) (test code = 44 U/L 5-34 H 353) ALT (SGPT) (BEAKER) (test code = 36 U/L 6-55 347) Industrial Insulator ID - LACBC W/PLT COUNT & AUTO [id number] 04:34:00 Test Item Value Reference Range Interpretation Comments WHITE BLOOD CELL COUNT (BEAKER) 8.6 K/ L 3.5-10.5 (test code = 775) RED BLOOD CELL COUNT (BEAKER) 3.86 M/ L 3.93-5.22 L (test code = 761) HEMOGLOBIN (BEAKER) (test code = 11.4 GM/DL 11.2-15.7 410) HEMATOCRIT (BEAKER) (test code = 33.8 % 34.1-44.9 L 411) MEAN CORPUSCULAR VOLUME (BEAKER) 87.6 fL 79.4-94.8 (test code = 753) MEAN CORPUSCULAR HEMOGLOBIN 29.5 pg 25.6-32.2 (BEAKER) (test code = 751) MEAN CORPUSCULAR HEMOGLOBIN CONC 33.7 GM/DL 32.2-35.5 (BEAKER) (test code = 752) RED CELL DISTRIBUTION WIDTH 13.1 % 11.7-14.4 (BEAKER) (test code = 412) PLATELET COUNT (BEAKER) (test 245 K/CU MM 150-450 code = 756) MEAN PLATELET VOLUME (BEAKER) 9.9 fL 9.4-12.3 (test code = 754) NUCLEATED RED BLOOD CELLS 0 /100 WBC 0-0 (BEAKER) (test code = 413) NEUTROPHILS RELATIVE PERCENT 71 % (BEAKER) (test code = 429) LYMPHOCYTES RELATIVE PERCENT 19 % (BEAKER) (test code = 430) MONOCYTES RELATIVE PERCENT 10 % (BEAKER) (test code = 431) EOSINOPHILS RELATIVE PERCENT 1 % (BEAKER) (test code = 432) BASOPHILS RELATIVE PERCENT 0 % (BEAKER) (test code = 437) NEUTROPHILS ABSOLUTE COUNT 6.06 K/ L 1.56-6.13 (BEAKER) (test code = 670) LYMPHOCYTES ABSOLUTE COUNT 1.61 K/ L 1.18-3.74 (BEAKER) (test code = 414) MONOCYTES ABSOLUTE COUNT (BEAKER) 0.83 K/ L 0.24-0.36 H (test code = 415) EOSINOPHILS ABSOLUTE COUNT 0.06 K/ L 0.04-0.36 (BEAKER) (test code = 416) BASOPHILS ABSOLUTE COUNT (BEAKER) 0.02 K/ L 0.01-0.08 (test code = 417) IMMATURE GRANULOCYTES-RELATIVE 0 % 0-1 PERCENT (BEAKER) (test code = 2801) LACTIC ACID, [id number] 20:25:00 Test Item Value Reference Range Interpretation Comments LACTATE BLOOD VENOUS (2) (BEAKER) 0.69 mmol/L 0.50-2.20 (test code = 2872) Industrial Insulator ID - NTPRAD, CHEST, 1 VIEW, NON [id number] 16:24:00Reason for exam:->feverShould this be performed at the bedside?->YesFINAL REPORT CLINICAL HISTORY: fever TECHNIQUE: 1 view of the chest. COMPARISON: None IMPRESSION: There is possible retrocardiac left lower lobe consolidation, for which clinical correlation for pneumonia is requested. There is blunting of the left costophrenic angle. The heartis not enlarged. Signed: Rich Valentine MDReport Verified Date/Time: 07/08/2019 16:24:52 Reading Loca tion: [facility] B1 C013V Neuro Reading Room HEMOGLOBIN [id number] 13:56:00 Test Item Value Reference Range Interpretation Comments HEMOGLOBIN A1C (BEAKER) (test code = 6.1 % 4.3-6.1 368) URINALYSIS W/ REFLEX URINE [id number] 13:15:00 Test Item Value Reference Range Interpretation Comments COLOR (BEAKER) (test code = 470) Light Yellow CLARITY (BEAKER) (test code = Clear 469) SPECIFIC GRAVITY UA (BEAKER) 1.017 1.001-1.035 (test code = 468) PH UA (BEAKER) (test code = 467) 7.5 5.0-8.0 PROTEIN UA (BEAKER) (test code = 10 mg/dL Negative A 464) GLUCOSE UA (BEAKER) (test code = Negative Negative 365) KETONES UA (BEAKER) (test code = Negative Negative 371) BILIRUBIN UA (BEAKER) (test code Negative Negative = 462) BLOOD UA (BEAKER) (test code = Trace Negative A 461) NITRITE UA (BEAKER) (test code = Negative Negative 465) LEUKOCYTE ESTERASE UA (BEAKER) Small Negative A (test code = 466) UROBILINOGEN UA (BEAKER) (test 0.2 mg/dL 0.2-1.0 code = 463) RBC UA (BEAKER) (test code = 3 /HPF 519) WBC UA (BEAKER) (test code = 30 /HPF 520) SQUAMOUS EPITHELIAL (BEAKER) < /HPF (test code = 516) SOURCE(BEAKER) (test code = 2795) Industrial [employer]ulator ID - [auto]Industrial [employer]ulator ID - techRESPIRATORY PANEL [id number] 12:14:00 Test Item Value Reference Range Interpretation Comments HUMAN METAPNEUMOVIRUS Not detected Not detected, (BEAKER) (test code = 2683) Equivocal RHINOVIRUS (BEAKER) (test Not detected Not detected, code = 2684) Equivocal INFLUENZA A (BEAKER) (test Not detected Not detected, code = 2685) Equivocal INFLUENZA A (NO SUBTYPE) (test code = 3606) INFLUENZA A SUBTYPE H1 (BEAKER) (test code = 2686) INFLUENZA A SUBTYPE H3 (BEAKER) (test code = 2687) INFLUENZA A SUBTYPE H1-2009 (BEAKER) (test code = 3198) INFLUENZA B (BEAKER) (test Not detected Not detected, code = 2688) Equivocal RESPIRATORY SYNCYTIAL VIRUS Not detected Not detected, (BEAKER) (test code = 3199) Equivocal PARAINFLUENZA VIRUS 1 Not detected Not detected, (BEAKER) (test code = 2691) Equivocal PARAINFLUENZA VIRUS 2 Not detected Not detected, (BEAKER) (test code = 2692) Equivocal PARAINFLUENZA VIRUS 3 Not detected Not detected, (BEAKER) (test code = 2693) Equivocal PARAINFLUENZA VIRUS 4 Not detected Not detected, (BEAKER) (test code = 3200) Equivocal ADENOVIRUS (BEAKER) (test Not detected Not detected, code = 2694) Equivocal CORONAVIRUS 229E (BEAKER) Not detected Not detected, (test code = 3201) Equivocal CORONAVIRUS HKU1 (BEAKER) Not detected Not detected, (test code = 3202) Equivocal CORONAVIRUS NL63 (BEAKER) Not detected Not detected, (test code = 3203) Equivocal CORONAVIRUS OC43 (BEAKER) Not detected Not detected, (test code = 3204) Equivocal BORDETELLA PERTUSSIS Not detected Not detected, (BEAKER) (test code = 3205) Equivocal CHLAMYDOPHILA PNEUMONIAE Not detected Not detected, (BEAKER) (test code = 3206) Equivocal MYCOPLASMA PNEUMONIAE Not detected Not detected, (BEAKER) (test code = 3207) Equivocal Other viruses and bacteria not targeted by this PCR panel cannot be excluded; therefore clinical correlation and follow up of serology, culture results, and other molecular studies is required. The results are not intended to be used as the sole means for clinical diagnosis or patient management decisions. This sample was tested at the [facility] using the [employer] FilmArray Respiratory Panel. It is FDA cleared and has been verified and approved by the [facility] for clinical use on nasopharyngeal swab specimens.The performance of the FilmArrayRP has not been established in individuals who received influenza vaccine. Recent administration ofa nasal influenza vaccine may cause false positive results for Influenza A and/orInfluenza B.SARS-COV2/RT-PCR ([facility])2019-07-08 11:26:00 Test Item Value Reference Range Interpretation Comments SARS-COV2/RT-PCR (test Not Detected Not Detected, Negative code = 7250711) SARS-COV-2 PERFORMING LAB [facility] (test code = 6137896) Negative results do not preclude SARS-CoV-2 infection and should not be used as the sole basis for patient management decisions. Negative results must be combined with clinical observations, patient history, and epidemiological information. A false negative result may occur if a specimen is improperly collected, transported or handled.The limit of detection for this assay is 250 copies/mL.This SARS CoV-2 test is a rapid, real-time RT-PCR test intended for the qualitative detection of nucleic acid from SARS-CoV-2 in a nasopharyngeal swab specimen collected from individuals suspected of COVID-19 by their healthcare provider.This test has not been Food and Drug Administration (FDA) cleared or approved and has been authorized by FDA under an Emergency Use Authorization (EUA). This EUA will be effective until the declaration that circumstances exist justifying the authorization of the emergency use of in vitro diagnostic tests for detection and/or diagnosis of COVID-19 is terminated under Section 564(b)(2) of the Act or the EUA is revoked under Section 564(g) of the Act.Fact Sheet for Healthcare Pro viders:https://www.[employer]/Documents/Xpert%20Xpress%20SARS%20CoV-2/Fact%20Sh eets/302-0016%73ESSX-NSA-2%20HEALTHCARE%20PROVIDERS%20FACT%20SHEET.pdfFact Sheet for Healthcare Patients:https://www.[employer]/Documents/Xpert%20Xpress%20SARS%20CoV-2/Fact%20Sheets/302-3801%20SARS-COV -2%20PATIENT%20FACT%20SHEET.pdfPerforming Laboratory:[facility], [place] [address]CGAML METABOLIC [id number] 10:06:00 Test Item Value Reference Range Interpretation Comments SODIUM (BEAKER) (test 138 meq/L 136-145 code = 381) POTASSIUM (BEAKER) 3.7 meq/L 3.5-5.1 (test code = 379) CHLORIDE (BEAKER) 105 meq/L 98-107 (test code = 382) CO2 (BEAKER) (test 24 meq/L 22-29 code = 355) BLOOD UREA NITROGEN 6 mg/dL 7-21 L (BEAKER) (test code = 354) CREATININE (BEAKER) 0.60 mg/dL 0.57-1.25 (test code = 358) GLUCOSE RANDOM 113 mg/dL 70-105 H (BEAKER) (test code = 652) CALCIUM (BEAKER) 8.4 mg/dL 8.4-10.2 (test code = 697) EGFR (BEAKER) (test INSUFFIC IENT CLINICAL code = 1092) DATA TO CALCULA TE ESTIMATED GFR. Industrial Insulator ID - [id number] 10:05:00 Test Item Value Reference Range Interpretation Comments MAGNESIUM (BEAKER) (test code = 2.0 mg/dL 1.6-2.6 627) Industrial Insulator ID - [id number] FUNCTION [id number] 10:05:00 Test Item Value Reference Range Interpretation Comments TOTAL PROTEIN (BEAKER) (test code = 6.8 gm/dL 6.0-8.3 770) ALBUMIN (BEAKER) (test code = 1145) 3.8 g/dL 3.5-5.0 BILIRUBIN TOTAL (BEAKER) (test code 0.6 mg/dL 0.2-1.2 = 377) BILIRUBIN DIRECT (BEAKER) (test 0.3 mg/dL 0.1-0.5 code = 706) ALKALINE PHOSPHATASE (BEAKER) (test 88 U/L 40-150 code = 346) AST (SGOT) (BEAKER) (test code = 30 U/L 5-34 353) ALT (SGPT) (BEAKER) (test code = 30 U/L 6-55 347) Industrial Insulator ID - [id number] 09:53:00 Test Item Value Reference Range Interpretation Comments PROTIME (BEAKER) (test code = 14.3 seconds 11.9-14.2 H 759) INR (BEAKER) (test code = 370) 1.1 <=5.9 PARTIAL THROMBOPLASTIN TIME 38.3 seconds 22.5-36.0 H (BEAKER) (test code = 760) Effective 07/11/2018: PT Reference Range ChangeNew: 11.9-14.2 Previous: 11.7- 14.7RECOMMENDED COUMADIN/WARFARIN INR THERAPY RANGESSTANDARD DOSE: 2.0-3.0 Includes: PROPHYLAXIS for venous thrombosis, systemic embolization; TREATMENT for venous thrombosis and/or pulmonary embolus.HIGH RISK: Target INR is2.5-3.5 for patients wiht mechanical heart valves.PROTHROMBIN TIME/[id number] 09:51:00 Test Item Value Reference Range Interpretation Comments PROTIME (BEAKER) (test code = 14.3 seconds 11.9-14.2 H 759) INR (BEAKER) (test code = 370) 1.1 <=5.9 Effective 07/11/2018: PT Reference Range ChangeNew: 11.9-14.2 Previous: 11.7- 14.7RECOMMENDED COUMADIN/WARFARIN INR THERAPY RANGESSTANDARD DOSE: 2.0-3.0 Includes: PROPHYLAXIS for venous thrombosis, systemic embolization; TREATMENT for venous thrombosis and/or pulmonary embolus.HIGH RISK: Target INR is2.5-3.5 for patients wiht mechanical heart valves.LACTIC ACID, [id number] 09:50:00 Test Item Value Reference Range Interpretation Comments LACTATE BLOOD VENOUS (2) (BEAKER) 2.87 mmol/L 0.50-2.20 H (test code = 2872) Industrial Insulator ID - [id number] W/PLT COUNT & AUTO [id number] 09:41:00 Test Item Value Reference Range Interpretation Comments WHITE BLOOD CELL COUNT (BEAKER) 11.3 K/ L 3.5-10.5 H (test code = 775) RED BLOOD CELL COUNT (BEAKER) 4.28 M/ L 3.93-5.22 (test code = 761) HEMOGLOBIN (BEAKER) (test code = 12.2 GM/DL 11.2-15.7 410) HEMATOCRIT (BEAKER) (test code = 37.9 % 34.1-44.9 411) MEAN CORPUSCULAR VOLUME (BEAKER) 88.6 fL 79.4-94.8 (test code = 753) MEAN CORPUSCULAR HEMOGLOBIN 28.5 pg 25.6-32.2 (BEAKER) (test code = 751) MEAN CORPUSCULAR HEMOGLOBIN CONC 32.2 GM/DL 32.2-35.5 (BEAKER) (test code = 752) RED CELL DISTRIBUTION WIDTH 13.2 % 11.7-14.4 (BEAKER) (test code = 412) PLATELET COUNT (BEAKER) (test 269 K/CU MM 150-450 code = 756) MEAN PLATELET VOLUME (BEAKER) 9.6 fL 9.4-12.3 (test code = 754) NUCLEATED RED BLOOD CELLS 0 /100 WBC 0-0 (BEAKER) (test code = 413) NEUTROPHILS RELATIVE PERCENT 76 % (BEAKER) (test code = 429) LYMPHOCYTES RELATIVE PERCENT 16 % (BEAKER) (test code = 430) MONOCYTES RELATIVE PERCENT 7 % (BEAKER) (test code = 431) EOSINOPHILS RELATIVE PERCENT 0 % (BEAKER) (test code = 432) BASOPHILS RELATIVE PERCENT 0 % (BEAKER) (test code = 437) NEUTROPHILS ABSOLUTE COUNT 8.65 K/ L 1.56-6.13 H (BEAKER) (test code = 670) LYMPHOCYTES ABSOLUTE COUNT 1.75 K/ L 1.18-3.74 (BEAKER) (test code = 414) MONOCYTES ABSOLUTE COUNT (BEAKER) 0.82 K/ L 0.24-0.36 H (test code = 415) EOSINOPHILS ABSOLUTE COUNT 0.03 K/ L 0.04-0.36 L (BEAKER) (test code = 416) BASOPHILS ABSOLUTE COUNT (BEAKER) 0.03 K/ L 0.01-0.08 (test code = 417) IMMATURE GRANULOCYTES-RELATIVE 0 % 0-1 PERCENT (BEAKER) (test code = 0321)
[2021-02-23] MEDS ORDERED: IPRATROPIUM BROM 0.5MG/2.5ML ONE (07:18)
[2021-02-23] MEDS ORDERED: ALBUTEROL 2.5 MG/3 ML NEB SOL ONE (07:18)
[2021-02-23 08:28] LABS: Absolute Lymphocytes (CBC) 2.7 K/uL (0.7-4.9); Hematocrit 40.3 % (36.0-45.0); MPV 8.6 fL (7.6-11.3); RBC Red Blood Cell Count 4.81 M/uL (3.86-4.86)
[2021-02-23 08:31] LABS: Protime INR 1.01
--- NOTE | 2021-02-23 08:46 | RAD REPORT ---
EXAM DESCRIPTION: RAD - Chest Single View - 02/23/2021 7:00 am CLINICAL HISTORY: DYSPNEA Chest pain. COMPARISON: Chest Single View dated 12/26/2017; CHEST PA AND LAT 2 VIEW dated 11/10/2009 FINDINGS: Portable technique limits examination quality. Moderate bilateral pulmonary opacities are present likely representing underlying infection or edema. The heart is upper limit of normal in size.
[2021-02-23] MEDS ORDERED: METHYLPREDNISOLONE 125 MG INJ ONE (08:54)
[2021-02-23 09:29] LABS: ALT/SGPT 37 U/L (12-78); AST/SGOT 29 U/L (15-37); Albumin 3.4 g/dL (3.4-5.0); Alkaline Phosphatase 98 U/L (45-117); BUN Blood Urea Nitrogen 11 mg/dL (7-18); Bicarbonate 25 mmol/L (21-32); Bilirubin Direct 0.2 mg/dL (0-0.2); Bilirubin Total 0.5 mg/dL (0.2-1.0); Glucose Level 137 mg/dL (74-106); Magnesium 2.2 mg/dL (1.8-2.4); NT PRO-BNP 1108 pg/mL (<450); Potassium 3.6 mmol/L (3.5-5.1); Protein, Total 7.5 g/dL (6.4-8.2); Sodium Level 141 mmol/L (136-145)
--- NOTE | 2021-02-23 09:59 | EDPHYS ---
Physician Documentation [facility] Name: Erika Jacobson Age: 85 yrs Sex: Female : 1935 Arrival Date: 02/23/2021 Time: 05:43 Bed 23 Private MD: ED Physician Charly Guo HPI: 02/23 07:20 This 85 yrs old Female presents to ER via Wheelchair with complaints of jr8 Breathing Difficulty - LOW O2--87%. 07:20 The patient has shortness of breath at rest. Onset: The symptoms/episode began/occurred jr8 gradually, 12 hour(s) ago. Duration: The symptoms are continuous, and are steadily getting worse. The patient's shortness of breath has no apparent modifying factors. Associated signs and symptoms: The patient has no apparent associated signs or symptoms. Severity of symptoms: At their worst the symptoms were moderate in the emergency department the symptoms are unchanged. It is unknown whether or not the patient has had similar symptoms in the past. The patient has not recently seen a physician. Family stated that patient started to have mild shortness of breath yesterday evening. History of asthma. This morning approximately 1 hour prior to arrival patient started to have worsening of shortness of breath. Came to ED for further evaluation at that time. Patient RA saturation in triage 87%. Historical: - Allergies: 06:18 No Known Allergies; bb - Home Meds: 06:18 amlodipine 5 mg tab 1 tab once daily [Active]; aspirin 81 mg Oral chew 1 tab once daily bb [Active]; atorvastatin 40 mg Oral tab 1 tab once daily [Active]; losartan 100 mg Oral tab 1 tab once daily [Active]; tramadol 50 mg Oral tab 1 tab every 4-6 hours [Active]; ventolin inhaler [Active]; - PMHx: 06:18 CVA; Hyperlipidemia; Hypertension; Asthma; bb - PSHx: 06:18 choleycestectomy; kidney stones; bb - Immunization history:: Moderna x 3. - Social history:: Smoking status: Patient denies any tobacco usage or history of. ROS: 07:20 Eyes: Negative for injury, pain, redness, and discharge, ENT: Negative for injury, jr8 pain, and discharge, Neck: Negative for injury, pain, and swelling, Cardiovascular: Negative for chest pain, palpitations, and edema, Abdomen/GI: Negative for abdominal pain, nausea, vomiting, diarrhea, and constipation, Back: Negative for injury and pain, MS/Extremity: Negative for injury and deformity, Skin: Negative for injury, rash, and discoloration, Neuro: Negative for headache, weakness, numbness, tingling, and seizure. 07:20 Respiratory: Positive for dyspnea on exertion, shortness of breath, wheezing. Exam: 07:20 Constitutional: This is a well developed, well nourished patient who is awake, alert, jr8 and in no acute distress. ENT: Nares patent. No nasal discharge, no septal abnormalities noted. Tympanic membranes are normal and external auditory canals are clear. Oropharynx with no redness, swelling, or masses, exudates, or evidence of obstruction, uvula midline. Mucous membranes moist. Neck: Trachea midline, no thyromegaly or masses palpated, and no cervical lymphadenopathy. Supple, full range of motion without nuchal rigidity, or vertebral point tenderness. No Meningismus. Cardiovascular: Regular rate and rhythm with a normal S1 and S2. No gallops, murmurs, or rubs. Normal PMI, no JVD. No pulse deficits. Abdomen/GI: Soft, non-tender, with normal bowel sounds. No distension or tympany. No guarding or rebound. No evidence of tenderness throughout. Skin: Warm, dry with normal turgor. Normal color with no rashes, no lesions, and no evidence of cellulitis. MS/ Extremity: Pulses equal, no cyanosis. Neurovascular intact. Full, normal range of motion. Neuro: Awake and alert, GCS 15, oriented to person, place, time, and situation. Motor strength 5/5 in all extremities. Sensory grossly intact. 07:20 Respiratory: the patient does not display signs of respiratory distress, Respirations: tachypnea, that is mild, Breath sounds: rhonchi, that are mild, are scattered, wheezing: expiratory that is moderate, is heard diffusely. Vital Signs: 06:15 BP 153 / 90; Pulse 110; Resp 24 S; Temp 97.7(O); Pulse Ox 87% on R/A; Weight 58.97 kg bb (R); Height 4 ft. 5 in. (134.62 cm) (R); 07:15 BP 151 / 59; Pulse 86; Resp 18; Pulse Ox 98% ; Pain 0/10; eo2 08:00 BP 146 / 52; Pulse 91; Resp 16; Pulse Ox 100% ; eo2 09:00 BP 138 / 47; Pulse 85; Resp 17; Pulse Ox 100% ; eo2 10:00 BP 147 / 49; Pulse 88; Resp 14; Pulse Ox 100% ; Pain 0/10; eo2 11:00 BP 134 / 52; Pulse 72; Resp 14; Pulse Ox 98% ; eo2 13:00 BP 151 / 70; Pulse 89; Resp 19; Pulse Ox 97% ; Pain 0/10; eo2 14:00 BP 126 / 81; Pulse 85; Resp 15; Pulse Ox 98% ; Pain 0/10; eo2 15:44 BP 122 / 84; Pulse 80; Resp 16; Temp 98.0; Pulse Ox 99% ; jh5 06:15 Body Mass Index 32.54 (58.97 kg, 134.62 cm) bb MDM: 06:34 Patient medically screened. 8 09:44 Data reviewed: vital signs, nurses notes, lab test result(s), EKG, radiologic studies, jr8 plain films. Data interpreted: Pulse oximetry: on room air is 87 %. Interpretation: hypoxia. Counseling: I had a detailed discussion with the patient and/or guardian regarding: the historical points, exam findings, and any diagnostic results supporting the discharge/admit diagnosis, lab results, radiology results, the need for further work-up and treatment in the hospital. 02/23 06:40 Order name: Basic Metabolic Panel; Complete Time: 09:44 02/23 06:40 Order name: CBC with Diff; Complete Time: 08:47 02/23 06:40 Order name: LFT's; Complete Time: 09:44 02/23 06:40 Order name: Magnesium; Complete Time: 09:44 02/23 06:40 Order name: NT PRO-BNP; Complete Time: :44 02/23 06:40 Order name: PT-INR; Complete Time: 08:47 02/23 06:40 Order name: XRAY Chest (1 view); Complete Time: 08:47 02/23 09:22 Order name: Troponin High Sensitivity; Complete Time: 09:44 EDMS 02/23 10:07 Order name: COVID-19 SARS RT PCR (Document "Date of Onset" if Symptomatic); Complete ss Time: 11:13 02/23 06:40 Order name: EKG; Complete Time: 06:41 02/23 06:40 Order name: Cardiac monitoring; Complete Time: 07:24 02/23 06:40 Order name: EKG - Nurse/Tech; Complete Time: 09:02/23 06:40 Order name: IV Saline Lock; Complete Time: 09:46 02/23 06:40 Order name: Labs collected and sent; Complete Time: 09:46 02/23 06:40 Order name: O2 Per Protocol; Complete Time: 07:24 02/23 06:40 Order name: O2 Sat Monitoring; Complete Time: 07:24 02/23 12:46 Order name: Diet Heart Healthy; Complete Time: 12:47 bd Administered Medications: 07:24 Drug: Albuterol - atroVENT (ipratropium) (3:1) (2.5 mg - 0.5 mg) 3 ml Route: Nebulizer; ss 08:24 Follow up: Response: No adverse reaction; Wheezing diminished eo2 08:56 Drug: SOLU-Medrol (methylPrednisoLONE) 125 mg Route: IVP; Site: left antecubital; eo2 09:59 Follow up: Response: No adverse reaction eo2 11:18 Drug: Lasix (furosemide) 60 mg Route: IVP; Site: left antecubital; eo2 12:18 Follow up: Response: No adverse reaction eo2 11:22 Drug: Lovenox (enoxaparin) 1 mg/kg Route: Sub-Q; Site: abdomen; eo2 12:22 Follow up: Response: No adverse reaction eo2 Disposition: 02/24 10:09 Co-signature as Attending Physician, Charly Guo MD I agree with the assessment and roxanna plan of care. Disposition Summary: 02/23/21 09:59 Hospitalization Ordered Hospitalization Status: Inpatient Admission [facility] Provider: Rufino Flores Location: Telemetry/MedSurg (Inpatient) [facility] Condition: Stable jr8 Problem: new jr8 Symptoms: have improved jr8 Bed/Room Type: [place] [address] Room Assignment: [facility](02/23/21 16:09) rn Diagnosis - Acute systolic (congestive) heart failure jr8 - Acute pulmonary edema jr8 - Subsequent non-ST elevation (NSTEMI) myocardial infarction jr8 Forms: - Medication Reconciliation Form jr8 - SBAR form jr8 Signatures: Dispatcher [employer] EDMS Charly Guo MD MD cha Ballard, Brenda RN RN Bryson Palmer MD MD rn Smirch, Shelby, RN RN ss Oumar Marcelino PA PA jr8 Uyen Ewing RN RN eo2 Corrections: (The following items were deleted from the chart) 02/23 09:22 06:41 TROPONIN (EMERG DEPT USE ONLY)+C.LAB.BRZ ordered. [facility] EDKY 16: 09:59 eric newton
--- NOTE | 2021-02-23 09:59 | ER ---
Nurse's Notes [facility] Name: Erika Jacobson Age: 85 yrs Sex: Female : 1935 Arrival Date: 02/23/2021 Time: 05:43 Bed 23 Private MD: Diagnosis: Acute systolic (congestive) heart failure;Acute pulmonary edema;Subsequent non-ST elevation (NSTEMI) myocardial infarction Presentation: 02/23 06:15 Chief complaint: Patient states: through language line pt states she started having bb difficulty breathing this morning about 0430 she has a history of asthma and uses an inhaler which she did use x 4 this morning. Coronavirus screen: difficulty breathing, Client presents with at least one sign or symptom that may indicate coronavirus-19. Standard/surgical mask placed on the client. Ebola Screen: No symptoms or risks identified at this time. Initial Sepsis Screen: Does the patient meet any 2 criteria? RR > 20 per min. HR > 90 bpm. Yes Does the patient have a suspected source of infection? Yes: Productive cough/pneumonia. Risk Assessment: Do you want to hurt yourself or someone else? Patient reports no desire to harm self or others. Onset of symptoms was February 23, 2021. 06:15 Method Of Arrival: Wheelchair bb 06:15 Acuity: ISHAN 3 bb Triage Assessment: 06:18 General: Appears uncomfortable, Behavior is calm, cooperative. Neuro: Level of bb Consciousness is awake, alert, obeys commands, Oriented to person, place, time, situation. Cardiovascular: Capillary refill < 3 seconds Patient's skin is warm and dry. Respiratory: Reports shortness of breath Respiratory effort is labored, Respiratory pattern is tachypnea Breath sounds with crackles bilaterally. Onset: The symptoms/episode began/occurred this morning, the patient has mild shortness of breath. Derm: Skin is pink, warm \T\ dry. Musculoskeletal: Circulation, motion, and sensation intact. Historical: - Allergies: 06:18 No Known Allergies; bb - Home Meds: 06:18 amlodipine 5 mg tab 1 tab once daily [Active]; aspirin 81 mg Oral chew 1 tab once daily bb [Active]; atorvastatin 40 mg Oral tab 1 tab once daily [Active]; losartan 100 mg Oral tab 1 tab once daily [Active]; tramadol 50 mg Oral tab 1 tab every 4-6 hours [Active]; ventolin inhaler [Active]; - PMHx: 06:18 CVA; Hyperlipidemia; Hypertension; Asthma; bb - PSHx: 06:18 choleycestectomy; kidney stones; bb - Immunization history:: Moderna x 3. - Social history:: Smoking status: Patient denies any tobacco usage or history of. Screenin:15 Abuse screen: Denies threats or abuse. Denies injuries from another. Nutritional eo2 screening: No deficits noted. Tuberculosis screening: No symptoms or risk factors identified. Fall Risk None identified. Ambulatory Aid- Crutches/Cane/Walker (15 pts). Gait- Weak (10 pts.). Assessment: 08:15 General: Appears in no apparent distress. Behavior is calm, cooperative. Pain: Denies eo2 pain. Neuro: No deficits noted. Level of Consciousness is awake, alert, obeys commands, Oriented to person, place, time, situation, Denies dizziness, headache. Cardiovascular: Denies chest pain, Heart tones S1 S2 present Rhythm is regular. Respiratory: Reports shortness of breath at rest on exertion since 4am this morning, reports hx of childhood asthma, denies cough/congestion, denies CP Airway is patent Respiratory effort is even, labored, Respiratory pattern is regular, symmetrical, Ventilator assessment: Breath sounds with wheezes bilaterally. GI: No deficits noted. No signs and/or symptoms were reported involving the gastrointestinal system. : No deficits noted. No signs and/or symptoms were reported regarding the genitourinary system. Musculoskeletal: Reports weakness in B/L LE due to previous stoke, ambulates with cane. 10:00 Reassessment: Provider at bedside to inform family of plan for admit, pt and family eo2 verbalized understanding. Communication provided in malagasy by this RN, pt and family understand, deny need for an injection wax molder at this time. 11:06 Reassessment: Dr. Flores at bedside. eo2 14:11 Reassessment: Pt with lunch tray at bedside. eo2 15:12 Reassessment:. eo2 16:01 Reassessment: Pt resting on bed in room at this time with son at bedside. Pt in NAD, RR jh5 even and unlabored, color is appropriate, well appearing. Denies complaint at this time. Pt will be continued to be monitored in ED at this time, hand off report given to ED Charge, RN.. Vital Signs: 06:15 BP 153 / 90; Pulse 110; Resp 24 S; Temp 97.7(O); Pulse Ox 87% on R/A; Weight 58.97 kg bb (R); Height 4 ft. 5 in. (134.62 cm) (R); 07:15 BP 151 / 59; Pulse 86; Resp 18; Pulse Ox 98% ; Pain 0/10; eo2 08:00 BP 146 / 52; Pulse 91; Resp 16; Pulse Ox 100% ; eo2 09:00 BP 138 / 47; Pulse 85; Resp 17; Pulse Ox 100% ; eo2 10:00 BP 147 / 49; Pulse 88; Resp 14; Pulse Ox 100% ; Pain 0/10; eo2 11:00 BP 134 / 52; Pulse 72; Resp 14; Pulse Ox 98% ; eo2 13:00 BP 151 / 70; Pulse 89; Resp 19; Pulse Ox 97% ; Pain 0/10; eo2 14:00 BP 126 / 81; Pulse 85; Resp 15; Pulse Ox 98% ; Pain 0/10; eo2 15:44 BP 122 / 84; Pulse 80; Resp 16; Temp 98.0; Pulse Ox 99% ; jh5 06:15 Body Mass Index 32.54 (58.97 kg, 134.62 cm) bb Vitals: 09:00 Cardiac Rhythm Assessment Regular Sinus rhythm. eo2 ED Course: 05:43 Patient arrived in ED. wm 06:18 Triage completed. bb 06:18 Arm band placed on Patient placed in an exam room, on a stretcher, on pulse oximetry. bb Family accompanied patient. 06:34 Oumar Marcelino PA is PHCP. jr8 06:34 Charly Guo MD is Attending Physician. jr8 07:00 XRAY Chest (1 view) In Process Unspecified. EDMS 07:26 Uyen Ewing, VIVIENNE is Primary Nurse. eo2 08:15 Patient has correct armband on for positive identification. quality assurance monitor body on. Pulse eo2 ox on. NIBP on. Door closed. Noise minimized. Warm blanket given. 08:15 No provider procedures requiring assistance completed. eo2 08:17 Inserted saline lock: 20 gauge in left antecubital area, using aseptic technique. Blood eo2 collected. 09:58 Baidoo, Rufino is Hospitalizing Provider. jr8 15:12 Report given to Araseli PALAFOX. eo2 16:59 Patient admitted, IV remains in place. ss Administered Medications: 07:24 Drug: Albuterol - atroVENT (ipratropium) (3:1) (2.5 mg - 0.5 mg) 3 ml Route: Nebulizer; ss 08:24 Follow up: Response: No adverse reaction; Wheezing diminished eo2 08:56 Drug: SOLU-Medrol (methylPrednisoLONE) 125 mg Route: IVP; Site: left antecubital; eo2 09:59 Follow up: Response: No adverse reaction eo2 11:18 Drug: Lasix (furosemide) 60 mg Route: IVP; Site: left antecubital; eo2 12:18 Follow up: Response: No adverse reaction eo2 11:22 Drug: Lovenox (enoxaparin) 1 mg/kg Route: Sub-Q; Site: abdomen; eo2 12:22 Follow up: Response: No adverse reaction eo2 Outcome: 09:59 Decision to Hospitalize by Provider. jr8 16:59 Admitted to Tele accompanied by tech, family with patient, room 211, Report called to barbie St RN 16:59 Condition: good 16:59 Instructed on the need for admit. 17:00 Patient left the ED. Signatures: Dispatcher [employer] Ruby Rico RN RN Caro Sutton RN RN Oumar Marcelino PA PA jr8 Samantha Rogers Jessica, RN RN jh5 Uyen Ewing RN RN eo2 Corrections: (The following items were deleted from the chart) 06:39 06:15 BP 153 / 90; Pulse 110bpm; Resp 24bpm; Spontaneous; Pulse Ox 87% RA; Temp 97.7F bb Oral; 58.97 kg Reported; Height 5 ft. 4 in. Reported; BMI: 22.3; bb
[2021-02-23] MEDS ORDERED: FUROSEMIDE 20 MG/ 2ML VIAL ONE (11:11)
[2021-02-23] MEDS ORDERED: ENOXAPARIN 60 MG/0.6 ML SQ ONE (11:12)
--- NOTE | 2021-02-23 11:50 | P.HP ---
Certification for Inpatient Patient admitted to: Observation With expected LOS: <2 Midnights Practitioner: I am a practitioner with admitting privileges, knowledge of patient current condition, hospital course, and medical plan of care. Services: Services provided to patient in accordance with Admission requirements found in Title 42 Section 412.3 of the Code of Federal Regulations Patient History Date of Service: 02/23/21 Reason for admission: Shortness of breath History of Present Illness: 85-year-old Greenlandic-speaking woman with a history of hypertension, asthma, history of CVA was brought to the emergency department due to sudden onset of SOB. Family felt the shortness of breath is due to acute asthma exacerbation. In the ED, x-ray demonstrated bilateral infiltrates suggestive of pulmonary edema or infection. Patient placed on 2 L oxygen by nasal cannula. Troponin elevated. EKG demonstrated sinus rhythm and left bundle branch block. Patient given IV steroids and bronchodilator treatment in the ED with improvement. Acute CHF suspected. She states that she was already feeling better during my examination in the ED. No chest pain reported. Patient hospitalized for further management. Allergies No Known Allergies Allergy (Verified 09/03/18 08:32) Home Medications: Aspirin [Aspirin EC 81 MG] 162 mg PO DAILY #60 tablet.dr 12/29/17 Amlodipine [Norvasc*] 10 mg PO DAILY #60 tab 01/12/18 Atorvastatin Calcium [Lipitor] 40 mg PO BEDTIME #30 tab 01/12/18 Docusate/Senna [Senokot-S*] 2 tab PO BEDTIME PRN #60 tab 01/12/18 Losartan Potassium [Cozaar*] 100 mg PO BEDTIME #60 tablet 01/12/18 hydroCHLOROthiazide [Hydrochlorothiazide*] 12.5 mg PO DAILY 09/03/18 - Past Medical/Surgical History Diabetic: No -: Hypertension -: Dyslipidemia -: CVA - Family History Family History: Reviewed- Non-Contributory - Social History Smoking Status: Never smoker Alcohol use: No CD- Drugs: No Caffeine use: Yes Review of Systems Other: Except as documented, all other systems reviewed and negative. Physical Examination - Physical Exam General: Alert, In no apparent distress, Oriented x3 HEENT: Normocephalic, Mucous membr. moist/pink, Sclerae nonicteric Neck: Supple, JVD not distended, No Thyromegaly Respiratory: Crackles/rales Cardiovascular: No edema, Regular rate/rhythm, Normal S1 S2 Gastrointestinal: Normal bowel sounds, Soft and benign, Non-distended, No tenderness Musculoskeletal: No swelling, No tenderness Integumentary: No rashes, No erythema, No cyanosis Neurological: Normal speech, Normal strength at 5/5 x4 extr, Cranial nerves 3-12 intact Lymphatics: No axilla or inguinal lymphadenopathy - Studies Laboratory Data (last 24 hrs) 02/23/21 08:17: PT 11.6, INR 1.01 02/23/21 08:17: WBC 11.30 H, Hgb 13.0, Hct 40.3, Plt Count 294 02/23/21 08:17: Sodium 141, Potassium 3.6, BUN 11, Creatinine 0.60, Glucose 137 H, Magnesium 2.2, Total Bilirubin 0.5, AST 29, ALT 37, Alkaline Phosphatase 98 Assessment and Plan - Problems (Diagnosis) (1) Acute respiratory failure with hypoxemia Current Visit: Yes Status: Acute (2) Acute asthma exacerbation Current Visit: Yes Status: Acute (3) Acute CHF Current Visit: Yes Status: Acute (4) NSTEMI (non-ST elevated myocardial infarction) Current Visit: Yes Status: Acute (5) LBBB (left bundle branch block) Current Visit: Yes Status: Acute (6) Hypertension Onset Date: 12/27/17 Current Visit: No Status: Acute Qualifiers: Hypertension type: essential hypertension - Plan Place patient under observation. Oxygen as needed Start IV Lasix 40 mg twice daily. We will give another dose of IV steroid for acute asthma exacerbation. Schedule bronchodilators over the next 24 hours. Trend troponin Cardiology consult given mildly elevated troponin and EKG demonstrating LBBB. Start full dose Lovenox, aspirin. Check lipid profile. Continue with home dose amlodipine. Metoprolol twice daily. - Advance Directives Does patient have a Living Will: No Does patient have a Durable POA for Healthcare: No
[2021-02-23 17:34] VITALS: BMI 32.0
[2021-02-23] MEDS ORDERED: ACETAMINOPHEN 500 MG TAB PO PRN (19:04)
[2021-02-23] MEDS ORDERED: ONDANSETRON 4 MG/2 ML VIAL IV PRN (19:04)
[2021-02-23] MEDS ORDERED: METHYLPREDNISOLONE 125 MG INJ IV ONE (19:04)
[2021-02-23] MEDS: ALBUTEROL 2.5 MG/3 ML NEB SOL NEB SCH (20:10)
[2021-02-23] MEDS: IPRATROPIUM BROM 0.5MG/2.5ML NEB SCH (20:10)
[2021-02-23] MEDS: FUROSEMIDE 40 MG/4 ML VIAL IV SCH (20:36)
[2021-02-23] MEDS: CLOPIDOGREL 75 MG TABLET PO SCH (22:17)
[2021-02-24] MEDS: ALBUTEROL 2.5 MG/3 ML NEB SOL NEB SCH ×4 (01:30→20:00)
[2021-02-24] MEDS: IPRATROPIUM BROM 0.5MG/2.5ML NEB SCH ×6 (01:30→20:00)
[2021-02-24 04:24] LABS: Hematocrit 37.1 % (36.0-45.0); Lymphocytes % 11.1 % (15.3-44.8); MPV 9.2 fL (7.6-11.3); RBC Red Blood Cell Count 4.47 M/uL (3.86-4.86)
[2021-02-24 04:52] LABS: Albumin 3.3 g/dL (3.4-5.0); Bilirubin Total 0.5 mg/dL (0.2-1.0); Magnesium 2.2 mg/dL (1.8-2.4); Phosphorus 2.9 mg/dL (2.5-4.9); Protein, Total 7.1 g/dL (6.4-8.2)
[2021-02-24 04:55] LABS: Potassium 2.7 mmol/L (3.5-5.1)
[2021-02-24 05:10] LABS: Blood Morphology Comment NOT SEEN (NOT SEEN); Platelet Estimate ADEQ
[2021-02-24] MEDS: KCL 20 MEQ/100 mL IVPB 20 MEQ/100 ML BAG IV SCH ×3 (06:09→09:00)
[2021-02-24] MEDS ORDERED: NA CHLORIDE 0.9% 250 ML ONE (06:45)
--- NOTE | 2021-02-24 07:47 | EKG ---
Test Date: 2021-02-23 Test Time: 21:20:46 Vice President Of Software Engineering: RT MEASUREMENT RESULTS: Intervals: Rate: 75 OH: 170 QRSD: 148 QT: 464 QTc: 518 [place]: P: 62 OH: 170 QRS: -38 T: 111 INTERPRETIVE STATEMENTS: Normal sinus rhythm Left axis deviation Left bundle branch block Abnormal ECG Compared to ECG 02/23/2021 08:25:03 No significant changes Electronically Signed On 02-24-21 07:45:36 CHIEF INVESTIGATOR by Marcel Dean
--- NOTE | 2021-02-24 07:49 | EKG ---
Test Date: 2021-02-23 Test Time: 08:25:03 Patternmaker: EO MEASUREMENT RESULTS: Intervals: Rate: 89 NC: 156 QRSD: 144 QT: 434 QTc: 528 [place]: P: 55 NC: 156 QRS: -45 T: 95 INTERPRETIVE STATEMENTS: Normal sinus rhythm Left axis deviation Left bundle branch block Abnormal ECG Compared to ECG 12/26/2017 17:46:10 Left bundle-branch block now present Electronically Signed On 02-24-21 07:45:50 POULTRY HELPER by Marcel Dean
[2021-02-24] MEDS: ASPIRIN EC 81 MG TAB PO SCH (08:53)
[2021-02-24] MEDS: CLOPIDOGREL 75 MG TABLET PO SCH (08:53)
[2021-02-24] MEDS: FUROSEMIDE 40 MG/4 ML VIAL IV SCH ×2 (08:53→17:06)
[2021-02-24] MEDS ORDERED: CLOPIDOGREL 75 MG TABLET PO SCH (09:00)
--- NOTE | 2021-02-24 11:41 | CON ---
Date of Consultation: 02/24/2021 Admitted with congestive heart failure and elevated troponin on 02/23/[address] Flores's service. I saw the patient on 02/24/2021. History Of Present Illness: Ms. Zhou came in with shortness of breath. No chest pain. Denied n ausea, vomiting, diaphoresis. Has had PND, orthopnea, but no pedal edema. Denied any palpitation or syncope or fever or chills. Past Medical History: Includes hypertension, dyslipidemia, coronary artery disease, COPD. Review of Systems: Negative. Social History: Negative. Family History: Negative. Medications: At home include Norvasc, aspirin, Lipitor, losartan, hydrochlorothiazide. She is prese ntly on inhalers, Plavix, Lasix, potassium, and steroids. Physical Examination: Vital Signs: Stable, afebrile, sinus rhythm. Left bundle-branch block. HEENT: Negative. Neck: Supple with no bruit. Chest: Reveals some rales both bases. Cardiac: Revealed a regular rhythm and rate. No murmurs, gallops, or rubs. Abdomen: Benign. Extremities: Revealed no clubbing, cyanosis, or edema. Diagnostic Data: EKG showed left bundle-branch block. Chest x-ray showed CHF. Potassium is 2.7, gl ucose is 198. Troponin is 439. Impression And Plan: Congestive heart failure, left bundle-branch block, elevated troponin secondary to congestive heart failure, elevated BNP secondary to congestive heart failure. We will plan an ec hocardiogram in the near future, diurese her, correct her potassium, consider a stress test or a cath eterization down the road after she improves from her congestive heart failure. Her other problems i ncluding hypertension, dyslipidemia, and history of coronary artery disease are stable at this point. YVES/LEEANNE Voice ID: [id number] Report ID: [id number]
[2021-02-24] MEDS: POTASSIUM CL SA 10 MEQ TAB PO SCH ×2 (12:00→17:07)
[2021-02-24] MEDS ORDERED: ENOXAPARIN 60 MG/0.6 ML SQ SCH (12:00)
--- NOTE | 2021-02-24 13:40 | ECHO ---
HEIGHT: 4 ft 5 in WEIGHT: 128 lb 0 oz DATE OF STUDY: 02/24/[address]: pamela gupta 2-DIMENSIONAL: YES M.MODE: YES DOPPLER: YES COLOR FLOW: YES TDS: NO PORTABLE: NO DEFINITY: NO BUBBLE STUDY: NO DIAGNOSIS: CONGESTIVE HEART FAILURE, NSTEMI CARDIAC HISTORY: CATHERIZATION: SURGERY: PROSTHETIC VALVE: PACEMAKER: MEASUREMENTS (cm) DIASTOLIC (NORMALS) SYSTOLIC (NORMALS) IVSd 1.0 (0.6-1.2) LA Diam 4.0 (1.9-4.0) LVEF 51% LVIDd 4.0 (3.5-5.7) LVIDs 3.0 (2.0-3.5) %FS 26% LVPWd 1.1 (0.6-1.2) Ao Diam 2.1 (2.0-3.7) 2 DIMENSIONAL ASSESSMENT: RIGHT ATRIUM: NORMAL LEFT ATRIUM: NORMAL RIGHT VENTRICLE: NORMAL LEFT VENTRICLE: NORMAL TRICUSPID VALVE: NORMAL MITRAL VALVE: NORMAL PULMONIC VALVE: NORMAL AORTIC VALVE: NORMAL PERICARDIAL EFFUSION: NONE AORTIC ROOT: NORMAL LEFT VENTRICULAR WALL MOTION: PARADOXICAL STEPUM. DOPPLER/COLOR FLOW: NORMAL COMMENTS: PARADOXICAL SEPTUM 2ND DEGREE LEFT BUNDLE BRANCH BLOCK. NORMAL LEFT VENTRICULAR EJECTION FRACTION. NO EFFUSION. TECHNOLOGIST: Edwardo MORALES
--- NOTE | 2021-02-24 15:03 | P.PN ---
Subjective Date of Service: 02/24/21 Chief Complaint: Shortness of breath Patient reports feeling much better today. She is maintained on 2 L oxygen by nasal cannula. She denies any chest pain. Physical Examination - Vital Signs Temperature: 98.3 F Blood Pressure: 143/63 Pulse: 76 Respirations: 16 Pulse Ox (%): 96 - Physical Exam General: Alert, In no apparent distress, Oriented x3 HEENT: Mucous membr. moist/pink Neck: JVD not distended Respiratory: Clear to auscultation bilaterally, Normal air movement Cardiovascular: No edema, Regular rate/rhythm, Normal S1 S2 Capillary refill: <2 Seconds Gastrointestinal: Soft and benign, Non-distended, No tenderness Musculoskeletal: No swelling, No tenderness Integumentary: No rashes, No erythema, No cyanosis Neurological: Normal speech, Normal strength at 5/5 x4 extr Lymphatics: No axilla or inguinal lymphadenopathy - Studies Laboratory Data (last 24 hrs) 02/24/21 03:35: Sodium 137, Potassium 2.7 L*, BUN 21 H, Creatinine 0.83, Glucose 198 H, Phosphorus 2.9, Magnesium 2.2, Total Bilirubin 0.5, AST 27, ALT 33, Alkaline Phosphatase 88 02/24/21 03:35: WBC 9.20 D, Hgb 12.0, Hct 37.1, Plt Count 288 Assessment And Plan - Current Problems (Diagnosis) (1) Acute respiratory failure with hypoxemia Current Visit: Yes Status: Acute (2) Acute asthma exacerbation Current Visit: Yes Status: Acute (3) Acute CHF Current Visit: Yes Status: Acute (4) NSTEMI (non-ST elevated myocardial infarction) Current Visit: Yes Status: Acute (5) LBBB (left bundle branch block) Current Visit: Yes Status: Acute (6) Hypertension Onset Date: 12/27/17 Current Visit: No Status: Acute Qualifiers: Hypertension type: essential hypertension - Plan Continue IV Lasix 40 mg twice daily. Status post IV steroids for acute asthma exacerbation. Continue bronchodilators. Troponin trended up yesterday, peaked at 1275 and then trended down. Cardiology consulted.I spoke to Dr. Dean who recommends medical management for CHF. No plans for cardiac cath. Continue full dose Lovenox for 1 more day. Continue aspirin and Plavix. Continue with home dose amlodipine. Change metoprolol to Coreg per cardiology given LBBB. Wean off oxygen.
[2021-02-25] MEDS: ALBUTEROL 2.5 MG/3 ML NEB SOL NEB SCH ×2 (02:50→08:04)
[2021-02-25] MEDS: IPRATROPIUM BROM 0.5MG/2.5ML NEB SCH ×3 (02:50→08:04)
[2021-02-25 05:47] LABS: Absolute Lymphocytes (CBC) 3.2 K/uL (0.7-4.9); Hematocrit 35.7 % (36.0-45.0); Lymphocytes % 25.4 % (15.3-44.8); MPV 8.9 fL (7.6-11.3)
[2021-02-25 06:04] LABS: Potassium 4.4 mmol/L (3.5-5.1)
[2021-02-25] MEDS ORDERED: POTASSIUM CL SA 10 MEQ TAB PO SCH (09:00)
[2021-02-25] MEDS: CLOPIDOGREL 75 MG TABLET PO SCH (09:25)
[2021-02-25] MEDS: FUROSEMIDE 40 MG/4 ML VIAL IV SCH (09:26)
[2021-02-25] MEDS: ASPIRIN EC 81 MG TAB PO SCH (09:26)
--- NOTE | 2021-02-25 09:58 | P.DS ---
Admission Date: 02/24/21 Discharge Date: 02/25/21 Disposition: ROUTINE DISCHARGE Discharge Condition: FAIR Reason for Admission: Shortness of breath - Problems (1) Acute respiratory failure with hypoxemia Current Visit: Yes Status: Acute (2) Acute asthma exacerbation Current Visit: Yes Status: Acute (3) Acute CHF Current Visit: Yes Status: Acute (4) NSTEMI (non-ST elevated myocardial infarction) Current Visit: Yes Status: Acute (5) LBBB (left bundle branch block) Current Visit: Yes Status: Acute (6) Hypertension Onset Date: 12/27/17 Current Visit: No Status: Acute Qualifiers: Hypertension type: essential hypertension Brief History of Present Illness: 85-year-old [place]ayan-speaking woman with a history of hypertension, asthma, history of CVA was brought to the emergency department due to sudden onset of SOB. Family felt the shortness of breath is due to acute asthma exacerbation. In the ED, x-ray demonstrated bilateral infiltrates suggestive of pulmonary edema or infection. Patient placed on 2 L oxygen by nasal cannula. Troponin elevated. EKG demonstrated sinus rhythm and left bundle branch block. Patient given IV steroids and bronchodilator treatment in the ED with improvement. Acute CHF suspected. She states that she was already feeling better during my examination in the ED. No chest pain reported. Patient hospitalized for further management. Hospital Course: Patient admitted to the medical floor with a diagnosis of NSTEMI, CHF exacerbation, acute asthma exacerbation. Her troponin peaked at 1275 and then trended down. Treated with IV Lasix, IV steroid and scheduled bronchodilators. Echocardiogram demonstrated normal EF. No atrial fibrillation. Patient seen in consultation by Dr. Dean recommended medical management of CHF, outpatient stress test before consideration for cardiac cath She was treated with full dose Lovenox for NSTEMI. Also treated with aspirin and Plavix. Continued with home dose amlodipine. She was initially requiring 2 L of oxygen but was eventually weaned off oxygen to room air. Patient clinically improved, currently asymptomatic and deemed stable for d ischarge. She will follow with Dr. Dean as an outpatient. She is prescribed maintenance Lasix, and Coreg. She will also continue taking her aspirin. Vital Signs/Physical Exam: Temp Pulse Resp BP Pulse Ox 97.7 F 73 16 140/64 95 02/25/21 08:00 02/25/21 09:26 02/25/21 08:00 02/25/21 09:26 02/25/21 08:00 General: Alert, In no apparent distress, Oriented x3 HEENT: Mucous membr. moist/pink Neck: JVD not distended Respiratory: Clear to auscultation bilaterally, Normal air movement Cardiovascular: No edema, Regular rate/rhythm, Normal S1 S2, No murmurs Gastrointestinal: Normal bowel sounds, Soft and benign, Non-distended, No tenderness Musculoskeletal: No swelling Integumentary: No rashes, No erythema, No cyanosis Neurological: Normal speech, Normal strength at 5/5 x4 extr Lymphatics: No axilla or inguinal lymphadenopathy Laboratory Data at Discharge: WBC 12.70 K/uL (4.3-10.9) H D 02/25/21 05:20 Hgb 11.5 g/dL (12.0-15.0) L 02/25/21 05:20 Hct 35.7 % (36.0-45.0) L 02/25/21 05:20 Plt Count 290 K/uL (152-406) 02/25/21 05:20 PT 11.6 SECONDS (9.5-12.5) 02/23/21 08:17 INR 1.01 02/23/21 08:17 Sodium 139 mmol/L (136-145) 02/25/21 05:20 Potassium 4.4 mmol/L (3.5-5.1) 02/25/21 05:20 BUN 31 mg/dL (7-18) H 02/25/21 05:20 Creatinine 0.66 mg/dL (0.55-1.3) 02/25/21 05:20 Glucose 117 mg/dL (74-106) H 02/25/21 05:20 Phosphorus 2.9 mg/dL (2.5-4.9) 02/24/21 03:35 Magnesium 2.2 mg/dL (1.8-2.4) 02/24/21 03:35 Total Bilirubin 0.5 mg/dL (0.2-1.0) 02/24/21 03:35 AST 27 U/L (15-37) 02/24/21 03:35 ALT 33 U/L (12-78) 02/24/21 03:35 Alkaline Phosphatase 88 U/L (45-117) 02/24/21 03:35 Home Medications: Albuterol Neb [Proventil 0.083% Neb Soln] 2.5 mg NEB [id number] #120 amp 02/25/21 Aspirin [Aspirin EC 81 MG] 162 mg PO DAILY #60 tablet. 02/25/21 Atorvastatin Calcium [Lipitor] 40 mg PO BEDTIME #30 tab 02/25/21 Furosemide [Lasix] 40 mg PO DAILY #30 tab 02/25/21 Losartan Potassium [Cozaar*] 100 mg PO BEDTIME #60 tablet 02/25/21 Nebulizer [Aeroneb Go Nebulizer] 1 each MC QID PRN #1 each 02/25/21 Potassium Chloride 20 meq PO DAILY #30 tablet.er 02/25/21 carvediloL [Coreg] 6.25 mg PO BID #60 tab 02/25/21 New Medications: Albuterol Neb [Proventil 0.083% Neb Soln] 2.5 mg NEB [id number] #120 amp Nebulizer [Aeroneb Go Nebulizer] 1 each MC QID PRN #1 each PRN Reason: Wheezing Aspirin [Aspirin EC 81 MG] 162 mg PO DAILY #60 tablet. carvediloL [Coreg] 6.25 mg PO BID #60 tab Losartan Potassium [Cozaar*] 100 mg PO BEDTIME #60 tablet Furosemide [Lasix] 40 mg PO DAILY #30 tab Atorvastatin Calcium [Lipitor] 40 mg PO BEDTIME #30 tab Potassium Chloride 20 meq PO DAILY #30 tablet.er Followup: Marcel Dean MD [ACTIVE - CAN ADMIT] - 1-2 Weeks NONE,NONE [Primary Care Provider] - Time spent managing pt's care (in minutes): 40
[2021-02-25 10:05] VITALS: O2SAT 99
[2021-02-25 12:35] VITALS: BP 150/57; TEMP 97.4
== END 2021-02-25 12:46 | disposition home or self-care (01) | DRG 280 ==
LOC: ER 05:42 → ERHOLD 11:54 → 2ND 16:24 → OBSVTOIN 02-24 12:29
PROVIDERS: ADMIT Internal Medicine; ATTEND Internal Medicine
DX: I11.0 Hypertensive heart disease with heart failure (principal); I21.4 Non-ST elevation (NSTEMI) myocardial infarction; J96.01 Acute respiratory failure with hypoxia; I50.23 Acute on chronic systolic (congestive) heart failure; J45.901 Unspecified asthma with (acute) exacerbation; E78.5 Hyperlipidemia, unspecified; I25.10 Atherosclerotic heart disease of native coronary artery without angina pectoris; J44.9 Chronic obstructive pulmonary disease, unspecified; I44.7 Left bundle-branch block, unspecified; Z79.82 Long term (current) use of aspirin; Z79.899 Other long term (current) drug therapy; Z86.73 Personal history of transient ischemic attack (TIA), and cerebral infarction without residual deficits; Z90.49 Acquired absence of other specified parts of digestive tract; Z79.02 Long term (current) use of antithrombotics/antiplatelets; Z20.822 Contact with and (suspected) exposure to COVID-19
CPT/HCPCS: 36415; 71045; 80048; 80053; 80076; 83735; 83880; 84100; 84132; 84484; 85025; 85610; 93005; 93306; 94640; 96372; 96374; 96375; 99285; G0378; J1650; J1940; J2930; J3480; J7050; U0003

== ENCOUNTER 2021-03-14 04:05 | Observation (INO) | payer MEDICARE, OTHER ==
--- OUTSIDE RECORDS SUMMARY | 2021-03-14 04:11 | XMS REPORT | Continuity of Care Document ---
:[address] [facility] t Address [address] [place] [address] Care Team Providers Name Role Phone Carmelita MURGUIA Primary Care Physician GABRIELA LI Attending Clinician Unavailable Braulio ERIC Attending Clinician Unavailable Braulio Alavrez Attending Clinician Larissa Germain MD Attending Clinician Larissa GERMAIN Attending Clinician Unavailable Beto MURGUIA Attending Clinician Provider, Urgent Care Attending Clinician Unavailable Sarahi MURGUIA, A Attending Clinician Herbie Scott DO Attending Clinician Doctor Unassigned, Name Attending Clinician Unavailable 1, Lab Attending Clinician Unavailable Lab, Fam Pob I Attending Clinician Unavailable Kedar Attending Clinician Unavailable Jono Villalobos Attending Clinician [phone] Angela Attending Clinician Unavailable GABRIELA LI Admitting Clinician Unavailable LANE HARTMANN Admitting Clinician Unavailable Payers Payer Name Policy Type Policy Number Effective Date Expiration Date S ource Sliding Fee - Cat P [id number] 2019 2020 1 00:00:00 00:00:00 AARP/MEDICARE [id number] 2019 COMPLETE 00:00:00 COVID19 [facility] [id number] Problems Condition Condition Condition Status Onset Resolution [...] 0-02 it y of on on 00:00: [place] [address] Medical Branch HLD HLD Disease Active 2016-02 Univers (hyperlipi (hyperlipi 0-02 it y of demia) demia) 00:00: [place] [address] Medical Branch History of History of Disease Active 2016-02 U nivers chest pain chest pain 0-02 it y of 00:00: [place] [address] Medical Branch Palpitatio Palpitatio Disease Active 2016-02 U nivers ns ns 0-02 ity of 00:00: [place] [address] Medical Branch Osteoporos Osteoporos Disease Active U nivers is is ity of [facility] Abnormal Abnormal Disease Active Unive rs EKG EKG ity of [facility] No known No known Disease [facility] active active College problems problems of Medicin e Allergies, Adverse Reactions, Alerts Allergy Allergy Status Severity Reaction(s) Onset Inactive Treating Comm ents Source Name Type Date Date Clinician NO KNOWN Allergy Active NO KNOWN Drug Active Univers ALLERGIE Class ity of [facility] Social History Social Habit Start Date Stop Date Quantity Comments Source Exposure to Not sure [facility] SARS-CoV-2 [place] [facility] (event) [place] Alcohol intake 2021-01-21 2021-01-21 Current [facility] 00:00:00 00:00:00 non-drinker of [facility] alcohol (finding) [place] Tobacco use and 2019-10-07 2019-10-07 Smokeless tobacco [facility] College of exposure 00:00:00 00:00:00 non-user Medicine Sex [birth year] At [birth year] [facility] llege of 00:00:00 00:00:00 Medicine Smoking Status Start Date Stop Date Source Never smoker [facility] Medications Ordered Filled Start Stop Current Ordering Indication Dosage Frequency Signature Comments Components Source Medication Medication Date Date Medication? Clinician (SIG) Name Name ATORVASTATI 2020-02 Yes [id number] 40mg TAKE 1 Univers N 40 mg 2-13 TABLET BY ity of tablet 00:00: MOUTH AT [place] [address] BEDTIME [facility] azelastine 2020-02 Yes [id number] 1{spray Use 1 Univers 137 mcg 2-02 } [place] in ity of (0.1 %) 00:00: each [place] nasal spray 00 nostril 2 Med ical (two) Branch times daily. Use in each nostril as directed fluticasone 2020-02 Yes [id number] 2{puff} Inhale 2 Univers propionate 2-02 Puffs 2 ity of (FLOVENT 00:00: (two) [place] HFA) 44 00 times Medical mcg/actuati daily. Branch on inhaler Rinse mouth after each use. mirtazapine 2020-02 Yes [id number] 7.5mg Take 1 Univers 7.5 mg 2-02 tablet by ity of tablet 00:00: mouth at [place] 00 bedtime. Medical Branch Magnesium 2020-02 Yes Take by [facility] 100 MG CAPS 1-10 mouth. Paul kebede 15:46: of 22 Medicin e Melatonin 2020-02 Yes Take by [facility] or 10 MG TABS 1-10 mouth. Owen 15:46: of 22 Medicin e oxybutynin 2020-02 Yes 10mg Take 1 [facility] (DITROPAN 1-10 Tablet by Shanda ge XL) 10 MG 00:00: mouth of CR tablet 00 daily. Medicin e albuterol Yes [id number] 2{puff} Inhale 2 Univers (PROAIR 9-03 Puffs ity of HFA) 90 00:00: every 6 [place] mcg/actuati 00 (six) Medical on inhaler hours as Branc h needed for Wheezing or Shortness of Breath. hydroCHLORO Yes [id number] 25mg Take 1 Univers thiazide 25 6-07 tablet by ity of mg tablet 00:00: mouth [place] 00 daily. Medical Branch amLODIPine Yes [id number] 2.5mg Take 1 Univers 2.5 mg 6-07 tablet by ity of tablet 00:00: mouth [place] 00 daily. Medical Branch hydrochloro 2020-0 2020- No 25mg Take 25 mg [facility] thiazide 3-22 03-22 by mouth Colleg e (HYDRODIURI 16:58: 00:00 daily. of L) 25 MG 25 :00 Medicin tablet e Magnesium Yes Take by [facility] or 100 MG CAPS 3-22 mouth. Shandag e 15:58: of 46 Medicin e Melatonin 0 Yes Take by [facility] or 10 MG TABS 3-22 mouth. Owen 15:58: of 46 Medicin e hydrochloro 0 Yes 25mg Take 1 [facility] or thiazide 3-22 Tablet by Colleg e (HYDRODIURI 00:00: mouth of L) 25 MG 00 daily. Medicin tablet e Potassium Yes Take 2 [facility] Citrate 3-22 tablets PO Colleg e (UROCIT-K [...] CR tablet 00 :00 daily. Medicin e hydrochloro 2019-02 Yes 25mg Take 25 mg Art thiazide 1-23 by [facility] (HYDRODIURI 17:00: daily. of L) 25 MG 06 Medicin tablet e Magnesium 2019-02 Yes Take by [facility] 100 MG CAPS 1-23 mouth. Colle e 17:00: of 06 Medicin e Melatonin 2019- Yes Take by [facility] or 10 MG TABS 1-23 mouth. Owen 17:00: of 06 Medicin e Potassium 2019- Yes Take 2 Art Citrate 1-23 tablets PO Colleg e (UROCIT-K 00:00: TID of 10) 10 MEQ 00 Medicin (1080 MG) e TBCR Potassium 2019-02- No Take 2 [facility] Citrate 1-23 03-22 tablets PO Colle ge (UROCIT-K 00:00: 00:00 TID of 10) 10 MEQ 00 :00 Medicin (1080 MG) e TBCR levothyroxi 2019-02 Yes 25ug Take 25 [place] raul ne 1-02 mcg by Owen (SYNTHROID) 00:00: mouth. of 25 MCG 00 Medicin tablet e levothyroxi 2019-02 Yes 25ug Take 25 [place] raul ne 1-02 mcg by College (SYNTHROID) 00:00: mouth. of 25 MCG 00 Medicin tablet e levothyroxi 2019-02- No 25ug Take 25 [facility] ne 1-02 11-10 mcg by Owen (SYNTHROID) 00:00: 00:00 mouth. of 25 MCG 00 :00 Medicin tablet e aspirin 81 2019-02 Yes [id number] 81mg Take 1 Univers mg chewable 0-01 [id number] tablet by i ty of tablet 00:00: mouth 00 daily. Medical Branch losartan 2019-02 Yes [id number] 50mg Take 0.5 U nivers 100 mg 0-01 tablets by ity of tablet 00:00: mouth 2 [place] 00 (two) Medical times Branch daily. pantoprazol 2019-02 Yes [id number] 20mg Take 1 Univers e 20 mg EC 0-01 tablet by ity of tablet 00:00: mouth 00 daily. Medical Take 30 Branch mins before breakfast. atorvastati 2020-0 Yes [facility] n (LIPITOR) 6-13 College 40 MG 00:00: of tablet 00 Medicin e atorvastati 2020-0 Yes [facility] n (LIPITOR) 6-13 College 40 MG 00:00: of tablet 00 Medicin e atorvastati 2020-0 Yes [facility] n (LIPITOR) 6-13 College 40 MG 00:00: of tablet 00 Medicin e atorvastati 2020-0 Yes [facility] n (LIPITOR) 6-13 College 40 MG 00:00: of tablet 00 Medicin e amlodipine 2020-0 Yes [facility] (NORVASC) 5 6-02 College MG tablet 00:00: of 00 Medicin e amlodipine 2020-0 Yes [facility] (NORVASC) 5 6-02 College MG tablet 00:00: of 00 Medicin e amlodipine 2020-0 Yes [facility] (NORVASC) 5 6-02 College MG tablet 00:00: of 00 Medicin e amlodipine 2020-0 Yes [facility] (NORVASC) 5 6-02 College MG tablet 00:00: of 00 Medicin e losartan 2020-0 Yes [facility] (COZAAR) 5-30 College 100 MG 00:00: of tablet 00 Medicin e losartan 2020-0 Yes [facility] (COZAAR) 5-30 College 100 MG 00:00: of tablet 00 Medicin e losartan 2020-0 Yes [facility] (COZAAR) 5-30 College 100 MG 00:00: of tablet 00 Medicin e losartan 2020-0 Yes [facility] (COZAAR) 5-30 College 100 MG 00:00: of [...] Immunizations Ordered Filled Immunization Date Status Comments [facility] e Immunization Name Name SARS-COV-2 COVID-19 2021-01-15 Completed Unive rsity of MODERNA BOOSTER 00:00:00 [facility] VACCINE Branch Influenza High Dose 2019-11-08 Completed Unive rsity of Quad 00:00:00 [facility] Influenza High Dose 2019-02-13 Completed Unive rsity of 00:00:00 [facility] TDAP 2017-11-10 Completed University of 00:00:00 [facility] Pneumococcal 2017-06-09 Completed [place] o f Polysaccharide, 00:00:00 [facility] PPSV23 (PNEUMOVAX) Branch Influenza High Dose 2016-11-14 Completed Unive rsity of 00:00:00 [facility] Vital Signs Vital Name Observation Time Observation Value Comments Source HEIGHT 2019-07-08 00:00:00 147.3 cm WEIGHT 2019-07-08 00:00:00 57.743 kg Systolic blood 2021-02-22 21:17:00 134 mm[Hg] Univer sity of pressure [facility] Diastolic blood 2021-02-22 21:17:00 67 mm[Hg] Unive rsity of pressure [facility] Heart rate 2021-02-22 21:17:00 67 /min Universi ty of [facility] Body temperature 2021-02-22 21:17:00 35.78 Monique Univ ersity of [facility] Body height 2021-02-22 21:17:00 147.3 cm Universi ty [facility] Body weight 2021-02-22 21:17:00 60.963 kg Universi ty [facility] BMI 2021-02-22 21:17:00 28.09 kg/m2 Universi ty [facility] Systolic blood 2020-12-23 21:48:00 137 mm[Hg] [facility] pressure Medicine Diastolic blood 2020-12-23 21:48:00 69 mm[Hg] [facility] Medicine Heart rate 2020-12-23 21:48:00 73 /min [facility] ollege of [facility] Body temperature 2020-12-23 21:48:00 36.83 Monique [facility] Respiratory rate 2020-12-23 21:48:00 15 /min [facility] Body height 2020-12-23 21:48:00 162.6 [facility] Body weight 2020-12-23 21:48:00 58.968 kg [facility] BMI 2020-12-23 21:48:00 22.31 kg/m2 [facility] Systolic blood 2020-05-04 15:57:00 131 mm[Hg] [facility] pressure Medicine Diastolic blood 2020-05-04 15:57:00 60 mm[Hg] [facility] pressure Medicine Heart rate 2020-05-04 15:57:00 67 /min [facility] ollege of Medicine Respiratory rate 2020-05-04 15:57:00 18 /min [facility] Body height 2020-05-04 15:57:00 147.3 cm [facility] ollege of [facility] Body weight 2020-05-04 15:57:00 58.514 kg [facility] ollege of [facility] BMI 2020-05-04 15:57:00 26.96 kg/m2 [facility] ollege of Medicine Systolic blood 2020-01-06 16:58:00 146 mm[Hg] [facility] pressure Medicine Diastolic blood 2020-01-06 16:58:00 71 mm[Hg] [facility] Medicine Heart rate 2020-01-06 16:58:00 88 /min [facility] ollege of [facility] Body temperature 2020-01-06 16:58:00 36.44 Monique [facility] Respiratory rate 2020-01-06 16:58:00 16 /min [facility] Body height 2020-01-06 16:58:00 144.8 cm [facility] ollege of [facility] Body weight 2020-01-06 16:58:00 58.968 kg [facility] BMI 2020-01-06 16:58:00 28.13 kg/m2 [facility] ollege of [facility] Systolic blood 2020-01-06 16:58:00 146 mm[Hg] [facility] Medicine Diastolic blood 2020-01-06 16:58:00 71 mm[Hg] [facility] Medicine Heart rate 2020-01-06 16:58:00 88 /min [facility] ollege of [facility] Body temperature 2020-01-06 16:58:00 36.44 Monique [facility] Respiratory rate 2020-01-06 16:58:00 16 /min [facility] Body height 2020-01-06 16:58:00 144.8 cm [facility] ollege of [facility] Body weight 2020-01-06 16:58:00 58.968 kg [facility] BMI 2020-01-06 16:58:00 28.13 kg/m2 [facility] ollege of [facility] Systolic blood 2019-10-07 14:05:00 127 mm[Hg] [facility] of pressure Medicine Diastolic blood 2019-10-07 14:05:00 67 mm[Hg] [facility] pressure Medicine Heart rate 2019-10-07 14:05:00 70 /min [facility] ollege [facility] Body temperature 2019-10-07 14:05:00 36.39 Monique [facility] Respiratory rate 2019-10-07 14:05:00 16 /min [facility] Body height 2019-10-07 14:05:00 162.6 cm [facility] ollege of [facility] Body weight 2019-10-07 14:05:00 58.968 kg [facility] BMI 2019-10-07 14:05:00 22.31 kg/m2 [facility] Systolic blood 2019-10-07 14:05:00 127 mm[Hg] [facility] Medicine Diastolic blood 2019-10-07 14:05:00 67 mm[Hg] [facility] Medicine Heart rate 2019-10-07 14:05:00 70 /min [facility] Body temperature 2019-10-07 14:05:00 36.39 Monique [facility] Respiratory rate 2019-10-07 14:05:00 16 /min [facility] Body height 2019-10-07 14:05:00 162.6 cm [facility] Body weight 2019-10-07 14:05:00 58.968 kg [facility] BMI 2019-10-07 14:05:00 22.31 kg/m2 [facility] HEIGHT 2019-07-08 00:00:00 147.3 cm WEIGHT 2019-07-08 [...] e POCT URINALYSIS 2020-12-23 00:00:00 Adams Germain [facility]IPSTICK Medicine POCT URINALYSIS 2020-01-06 00:00:00 Adams Germain [facility] Medicine BASIC METABOLIC PANEL 2019-10-07 14:32:00 Adams Germain [facility] MAGNESIUM 2019-10-07 14:32:00 Adams Germain [facility] of Medicine URIC ACID 2019-10-07 14:32:00 Adams Germain [facility] Medicine Plan of Care Planned Activity Planned Date Details Comments Source Future Scheduled 2021-05-04 US RENAL BILATERAL Expected: [facility] College Test 00:00:00 [code = 72400] 05/04/2021, of Medicine Expires: 05/04/2021 Future Scheduled 2021-01-03 COVID-19 Vaccine (1) [place] [facility] College Test 08:34:34 [code = COVID-19 of Medicine Vaccine (1)] Future Scheduled 2021-01-03 ZOSTER VACCINE (1 of [place] ra[facility] Owen Test 08:34:34 2) [code = ZOSTER of Medicin e VACCINE (1 of 2)] Future Scheduled 2021-01-03 Screening for [facility] Col lege Test 08:34:34 osteoporosis of Medicine (procedure) [code = 210656142] Future Scheduled 2021-01-03 Pneumococcal 65+ (1 [facility] College Test 08:34:34 of 1 - PPSV23) [code of Medi cine = Pneumococcal 65+ (1 of 1 - PPSV23)] Future Scheduled 2021-01-03 MEDICARE AWV [facility] Kristine ege Test 08:34:34 (Initial) [code = of Medicin e MEDICARE AWV (Initial)] Future Scheduled 2021-01-03 FLU VACCINE > 6 [facility] C ollege Test 08:34:34 MONTHS [code = FLU of Medici ne VACCINE > 6 MONTHS] Future Scheduled 2021-01-03 FALL SCREEN [code = [facility] Test 08:34:34 FALL SCREEN] of Medicine Future Scheduled 2021-01-03 TETANUS SHOT (ADULT) [place] [facility] College Test 08:34:34 [code = TETANUS SHOT of Medi cine (ADULT)] Diagnostic Test 2020-07-11 US RENAL BILATERAL Expected: [facility] Pending 00:00:00 [code = 72206] 07/11/2020, of Medicine Expires: 01/11/2021 Future Scheduled PTH,INTACT,WITH Ordered: [facility] C ollege Test CALCIUM,PO4,CREAT 10/07/2019 of Medicin e [code = NOCPT] Future Scheduled TETANUS SHOT (ADULT) [place] [facility] College Test [code = TETANUS SHOT of Medi cine (ADULT)] Future Scheduled ZOSTER VACCINE (1 of [place] [facility] College Test 2) [code = ZOSTER [...] PLAN] Future Scheduled ZOSTER VACCINE (1 of [place] [facility] College Test 2) [code = ZOSTER of Medicin e VACCINE (1 of 2)] Future Scheduled OSTEOPOROSIS [facility] Kristine ege Test SCREENING [code = of Medicin e OSTEOPOROSIS SCREENING] Future Scheduled MEDICARE IPPE [facility] Col lege Test (WELCOME TO of Medicine MEDICARE) [code = MEDICARE IPPE (WELCOME TO MEDICARE)] Future Scheduled FLU VACCINE > 6 [facility] C ollege Test MONTHS [code = FLU of Medici ne VACCINE > 6 MONTHS] Future Scheduled FALL SCREEN [code = [facility] Test FALL SCREEN] of Medicine Future Scheduled TETANUS SHOT (ADULT) [place] [facility] Test [code = TETANUS SHOT of Medi cine (ADULT)] Future Scheduled COVID-19 Vaccine (1) [place] [facility] College Test [code = COVID-19 of Medicine Vaccine (1)] Future Scheduled BMI FOLLOW UP PLAN [facility] Test [code = BMI FOLLOW of Medici ne UP PLAN] Future Scheduled ZOSTER VACCINE (1 of [place] [facility] College Test 2) [code = ZOSTER of Medicin e VACCINE (1 of 2)] Future Scheduled Screening for [facility] Col lege Test osteoporosis of Medicine (procedure) [code = 756738566] Future Scheduled MEDICARE IPPE Art Col lege Test (WELCOME TO of Medicine MEDICARE) [code = MEDICARE IPPE (WELCOME TO MEDICARE)] Future Scheduled FLU VACCINE > 6 [facility] Denisha allen Test MONTHS [code = FLU of Medici ne VACCINE > 6 MONTHS] Future Scheduled FALL SCREEN [code = [facility] Test FALL SCREEN] of Medicine Future Scheduled TETANUS SHOT (ADULT) [place] [facility] College Test [code = TETANUS SHOT of Medi cine (ADULT)] Encounters Start End Encounter Admission Attending Care Care Encounter Source Date/Time Date/Time Type Type Clinicians Facility Department ID 2020-11-29 Outpatient [facility] [id number] [place] 10:44:36 [id number] [facility] 2020-11-29 Outpatient [facility] [id number] [facility] 08:37:05 [id number] [facility] 2020-11-26 Outpatient [facility] [id number] [facility] 17:47:41 [id number] [facility] 2020-11-26 Outpatient [facility] [id number] Legacy 17:43:25 [id number] [facility] 2020-11-26 Outpatient [facility] [id number] Legacy 17:38:25 [id number] [facility] 2020-11-26 Outpatient [facility] [id number] Legacy 17:36:45 [id number] [facility] 2020-11-26 Outpatient [facility] [id number] [facility] 17:34:20 [id number] [facility] 2020-11-26 Outpatient [facility] [id number] Legacy 17:30:46 [id number] [facility] 2020-11-26 Outpatient [facility] [id number] Legacy 17:29:46 [id number] [facility] 2020-11-17 Inpatient ER GUILLERMO, [facility] [id number] SLE 14:52:09 LILIANA 2021-04-05 2021-04-05 Outpatient Braulio ERIC [facility] [id number] Univers 10:30:00 10:30:00 KWAKU [id number] ity of [facility] 2021-02-22 2021-02-22 Office LAST Eric [id number] [facility] 14:30:00 15:00:00 Visit Kwaku [facility] [id number] ity [facility] 4.2.7.2.686 Joan manning [id number] Medi angelica 205 Branch 2021-02-22 2021-02-22 Outpatient R ARIAN [facility] [id number] Univers 14:30:00 14:30:00 KWAKU karina [facility] 2020-12-23 2020-12-23 Office Link, BC [id number] [facility] 16:00:00 16:15:00 Visit Adams Kebede AMBULATOR [id number] College Y 0.2.7.2.686 of [id number] [facility] raimundo 300 e 2020-05-04 2020-05-04 Office LINK, [facility] [id number] [facility] 10:43:07 12:09:48 Visit ADAMS AMBULATOR [id number] College Y 0.2.7.2.686 of [id number] [facility] raimundo 300 e 2020-04-29 2020-04-29 [facility] [id number] 00:00:00 00:00:00 Daniel [place] [id number] [place] [id number] Professio [phone] [address] 2020-04-29 2020-04-29 [facility] [id number] 00:00:00 00:00:00 Daniel [place] [id number] [place] 4.2.7.2.686 Professio [phone] [facility] [address] [place] [address] 2020-04-25 2020-04-25 Urgent Provider, [facility] [id number] 10:12:47 10:32:47 Care Ang [facility] [id number] Care [place] [id number] Professio [phone] nal [facility] Office Building One 2020-04-15 2020-04-15 Telephone Sarahi [facility] [id number] 00:00:00 00:00:00 Wondiful [facility] [id number] [place] 4.2.7.2.686 Professio [phone] nal 044 Office [address] One 2020-03-07 2020-03-07 Patient Tyler [facility] [id number] 00:00:00 00:00:00 Outreach Ethan PRIMARY [id number] [facility] 4.2.7.2.686 LIZ [id number] 2020-01-16 2020-01-16 Telemedici Sarahi [facility] [id number] 16:09:25 16:24:25 ne Visit Jamilful [facility] [id number] [place] 4.2.7.2.686 Professio [phone] nal [facility] Office Building One 2020-01-12 2020-01-12 Orders Doctor LILLIANA [id number] 00:00:00 00:00:00 Only Unassigned, MACKENZIE 350.1.13.10 Cricket [facility] 4.2.7.2.686 [id number] 009 2020-01-06 2020-01-06 Office Link, [facility] [id number] 10:46:16 11:44:31 Visit Adams E AMBULATOR 350.1.13.21 Y 0.2.7.2.686 [id number] 300 2020-01-06 2020-01-06 Office Link, [facility] [id number] [place] [address] 10:46:16 11:44:31 Visit Adams E AMBULATOR 350.1.13.21 College Y 0.2.7.2.686 of [id number] [facility] 300 e 2019-12-16 2019-12-16 Case [place] [facility] [id number] 00:00:00 00:00:00 Management Antwandiful A Health [id number] Kimber[place] 4.2.7.2.686 Professio [phone] nal 044 Office Building One 2019-12-12 2019-12-12 Strategic Marketing Leader 1, Adc Lab [facility] [id number] 09:36:54 09:51:54 Visit Kimberly 350.1.13.10 [place] 4.2.7.2.686 [place] [id number] 353 2019-12-12 2019-12-12 [place] Sarahi [facility] [id number] 00:00:00 00:00:00 Wondiful [facility] [id number] [place] 4.2.7.2.686 Professio [phone] [place] [address] Office [address] One 2019-12-05 2019-12-05 Orders Doctor LILLIANA [id number] 00:00:00 00:00:00 Only Unassigned, MACKENZIE 350.1.13.10 Cricket [facility] 4.2.7.2.686 [id number] 009 2019-11-14 2019-11-14 Case Sarahi [facility] [id number] 00:00:00 00:00:00 Management Wondiful [facility] [id number] [place] 4.2.7.2.686 Professio [phone] [place] [address] [address] One 2019-11-13 2019-11-13 [facility] [id number] 00:00:00 00:00:00 Management Wondiful [facility] 350.1.13.10 [place] 4.2.7.2.686 Professio [phone] [place] [address] Office Building One 2019-11-08 2019-11-08 [facility] [id number] 09:44:58 11:00:23 Visit [facility] 350.1.13.10 [place] 4.2.7.2.686 Professio [phone] [place] [address] Office Building One 2019-10-07 2019-10-07 Office Link, [facility] [id number] 08:45:50 10:08:26 Visit Adams Kebede AMBULATOR 350.1.13.21 Y 0.2.7.2.686 [id number] 300 2019-10-07 2019-10-07 Office Link, [place] 1.2.840.[id number] [place] [address] 08:45:50 10:08:26 Visit Adams Kebede AMBULATOR 350.1.13.21 College Y 0.2.7.2.686 of [phone] Medi raimundo 300 e 2019-08-29 2019-08-29 Urgent Lab, Adc [facility] 1.2.840.114 [id number] 11:00:00 11:20:00 Care Fam Pramodb I Health 350.1.13.10 [place] 4.2.7.2.686 Professio [phone] nal 044 Office Building One 2019-07-30 2019-07-30 Office ADRIAN Thacker Encounter / Legacy 00:00:00 00:00:00 Visit Renata [id number] Com natalee [id number] ty Health 2019-07-01 2019-07-01 Office Wilfredo, NICOLASA LC Encounter/ Legacy 00:00:00 00:00:00 Visit Mirella [id number] Com natalee Jono [id number] ty Health 2019-07-01 2019-07-01 Office [facility]fred[facility]NICOLASA [facility] Encounter/ Legacy 00:00:00 00:00:00 Visit Mirella [id number] Com natalee Jono [id number] ty Health 2019-07-01 2019-07-01 Office WilfredoMirella [facility] LC Encounter/ Legacy 00:00:00 00:00:00 Visit Shy Miller [id number] [address] [place] [address] [id number] ty Health 2019-06-25 2019-06-25 Office WilfredoNICOLASA [facility] LC Encounter/ Legacy 00:00:00 00:00:00 Visit Mirella [id number] Com natalee Jono [id number] ty Health 2019-06-25 2019-06-25 Office Wilfredo, [facility] LC Encounter/ Legacy 00:00:00 00:00:00 Visit Mirella [id number] Com natalee Jono [id number] ty Health 2019-06-25 2019-06-25 Office Wilfredo, [facility] LC Encounter/ Legacy 00:00:00 00:00:00 Visit Mirella [id number] Com natalee Jono [id number] ty Health 2019-06-25 2019-06-25 Office WilfredoMirella willingham [facility] LC Encounter/ Legacy 00:00:00 00:00:00 Visit Renata Thacker [id number] [address] [place] [address] [id number] Health Results Test Description Test Time Test Comments Results Result Comments Source POCT URINALYSIS DIPSTICK 2020-12-23 00:00:00 Test Item Value Reference Range Interpretation Comme nts COLOR UA (test code = 5778-6) Yellow YELLOW/STRAW CLARITY UA (test code = 13873-5) Clear CLEAR GLUCOSE UA (test code = 5792-7) Negative NEGATIVE BILIRUBIN UA (test code = 5770-3) Negative NEGATIVE KETONES UA (test code = 08395-7) Negative NEGATIVE SPECIFIC GRAVITY UA (test code [...] NEGATIVE REDUCING SUBSTANCES URINE (test code = 84473-7) NEGATI VE Lab Interpretation (test code = 23065-2) [facility]normal [facility] [id number] 00:00:00 Test Item Value Reference Range Interpretation Comments COLOR UA (test code = 5778-6) Light Yellow YELLOW/STRAW CLARITY UA (test code = Cloudy CLEAR 56442-2) GLUCOSE UA (test code = Negative NEGATIVE 5792-7) BILIRUBIN UA (test code = Negative NEGATIVE 5770-3) KETONES UA (test code = Negative NEGATIVE 04427-8) SPECIFIC GRAVITY UA (test 1.005-1.035 code = [...] 5802-4) REDUCING SUBSTANCES URINE (test code = 68630-6) [facility] [id number] 11:28:02 Test Item Value Reference Range Interpretation Comments MAGNESIUM (test code = See_Comment Unless Otherwise 41918-6) Indicated, All Testing Performed At: [facility], [address] [place] [address], [place] [address] Laboratory Di laurent: Tani rogers M.D. CLIA Number [id number] [facility] [id number] [Auto mated message] The sy stem which generated this result transmitted ref erence range: 1.6 - 2. 6 MG/DL. The reference r nanci was not used to int erpret this result as minor l/abnormal. [facility] METABOLIC [id number] 08:53:12 Test Item Value Reference Range Interpretation Comments GLUCOSE (test code = See_Comment H [Autom ated message] 2345-7) The system Learndot generated this result transmitted ref erence range: [...] L [Au tomated message] 2160-0) The system Learndot generated this result transmitted ref erence range: 0.60 - 1 .30 MG/DL. The refe rence range was not u sed to interpret this result as normal/abnor mal. EGFR AA (test code = See_Comment [Autom ated message] 52638-3) The system Learndot generated this result transmitted ref erence range: >60 ML/MIN/1.73. Th e reference range was not used to int erpret this result as normal/abnormal . EGFR (test code = See_Comment [Automate d message] 45611-5) The system Learndot generated this result transmitted ref erence range: >60 ML/MIN/1.73. Th e reference range was not used to int erpret this result as normal/abnormal . SODIUM (test code = See_Comment [Automa kendrick message] 2951-2) The system Learndot generated this result transmitted ref erence range: 133 - 14 6 MEQ/L. The refe rence range was not u sed to interpret this result as normal/abnor mal. POTASSIUM (test code = See_Comment [Aut omated message] 2822-3) The system Learndot generated this result transmitted ref erence range: 3.5 - 5. 4 MEQ/L. The refe rence range was not u sed to interpret this result as normal/abnor mal. CHLORIDE (test code = See_Comment [Auto mated message] ) The system Learndot generated this result transmitted ref erence range: 95 - 107 MEQ/L. The reference r nanci was not used to interpret this result as normal/abnor mal. CO2 (test code = See_Comment [Automated message] 1962-09) The system Learndot generated this result transmitted ref erence range: 19 - 31 MEQ/L. The reference r nanci was not used to interpret this result as normal/abnor mal. CALCIUM (test code = See_Comment Unless 71382-3) Otherwise Indic ated, All Testing Per formed At: [facility], [address] [place], [place] [id number] Laboratory Dire ctor: Tani rogers M.D. CLIA Num jovanni [id number] [employer] Accreditation N o. [Auto mated message] The sy stem which generated this result transmit kendrick reference range : 8.5 - 10.5 MG/DL. The reference range was not used to int erpret this result as normal/abnormal . Lab Interpretation Abnormal (test code = 06459-1) [facility] [id number] 08:53:12 Test Item Value Reference Range Interpretation Comments URIC ACID (test code See_Comment Unless Otherwise = 4017400) Indicated, All Testing Performed At: [facility], [address] [place] [address] 7875 4 Laboratory Dire ctor: Tani Vazquez M.D. CLIA Number [id number] [employer] Accreditation [place]. 95384-53 [Automated mess age] The system which ge nerated this result transmit kendrick reference range: 2.7 - 6. 1 MG/DL. The reference range was not used to interpret th is result as normal/abnormal . [facility] Center[facility], FLUORO, NON-SPECIFIC, UP TO 1 [id number] 09:44:00Reason for exam:->cystoFINAL REPORT A fluoroscopic unit was utilized for a procedure performed in the operating room. No interpretation was requested. Please refer to the operative report regarding findings. Please refer to PACS for patient radiation dose information. Signed: JR Elizabeth, Alla Mast Verified Date/Time: 07/14/2019 09:44:15 Reading Location: [facility] C013V Neuro Reading Room BLOOD [id number] 11:00:00 Test Item Value Reference Range Interpretation Comments CULTURE (BEAKER) (test No growth in 5 days code = 1095) BLOOD [id number] 11:00:00 Test Item Value Reference Range Interpretation Comments CULTURE (BEAKER) (test No growth in 5 days code = 1095) URINE [id number] 11:07:00 Test Item Value Reference Range Interpretation Comments CULTURE (BEAKER) (test code = 1095) No growth ANG, NEPHROSTOMY, PERC, EXTERNAL [id number] 11:00:00Reason for exam:- >request left PCN for left obstructing stone, feversFINAL REPORT Procedure: Percutaneous nephrostomy catheter placement. History: Left ureteric calculus with obstruction, infection. Pbx Mechanic: Bradford Martin M.D. Stage Setting Painter Apprentice: Nargis mckeon M.D. Modality: Ultrasound and fluoroscopy. [...] sequential dilatation of the tract, an 8.5 Nigerian nephrostomy catheter was placed, pigtail locked in [...] bladder. Impression:Successful ultrasound and fluoroscopic guided 8.5 Nigerian nephrostomy catheter placement leftkidney via a posterior inferior calyx as described above. Further management dictated by the clinical scenario. The nephrostomy catheter(s) should be exchanged at the latest in three months. Thank you for the opportunity to assist in the care of your patient. Signed: Bradford Martin MDReport Verified Date/Time: 07/10/2019 11:00:12 Reading Location: [place] [address] Angio Body Reading Room Electronically signed by: Kwesi PETERSON 07/10/2019 11:00 AM BASIC METABOLIC [id number] 07:33:00 Test Item Value Reference Range Interpretation [...] 1092) DATA TO CALCULA TE ESTIMATED GFR. Room Worker ID - MONIE [id number] 07:25:00 Test Item Value Reference Range Interpretation Comments MAGNESIUM (BEAKER) (test code = 2.2 mg/dL 1.6-2.6 627) Room Worker ID - MONIE CHEPATIC FUNCTION [id number] 07:25:00 Test Item Value Reference Range Interpretation [...] (test code = 43 U/L 6-55 347) Room Worker ID - MONIE CCBC W/PLT COUNT & AUTO [id number] 06:54:00 Test Item Value Reference Range Interpretation [...] (BEAKER) (test code = 2801) BASIC METABOLIC [id number] 05:38:00 Test Item Value Reference Range Interpretation [...] 1092) DATA TO CALCULA TE ESTIMATED GFR. Room Worker ID - [id number] 05:24:00 Test Item Value Reference Range Interpretation Comments MAGNESIUM (BEAKER) (test code = 1.8 mg/dL 1.6-2.6 627) Room Worker ID - LAHEPATIC FUNCTION [id number] 05:24:00 Test Item Value Reference Range Interpretation [...] (test code = 36 U/L 6-55 347) Room Worker ID - LACBC W/PLT COUNT & AUTO [id number] 04:34:00 Test Item Value Reference Range Interpretation [...] (BEAKER) (test code = 2801) LACTIC ACID, [id number] 20:25:00 Test Item Value Reference Range Interpretation Comments LACTATE BLOOD VENOUS (2) (BEAKER) 0.69 mmol/L 0.50-2.20 (test code = 2872) Room Worker ID - NTPRAD, CHEST, 1 VIEW, NON [id number] 16:24:00Reason for exam:->feverShould this be performed at the bedside?->YesFINAL REPORT CLINICAL HISTORY: fever TECHNIQUE: 1 view of the chest. COMPARISON: None IMPRESSION: There is possible retrocardiac left lower lobe consolidation, for which clinical correlation for pneumonia is requested. There is blunting of the left costophrenic angle. The heartis not enlarged. Signed: Rich Valentine MDReport Verified Date/Time: 07/08/2019 16:24:52 Reading Loca tion: [facility] B[facility] C013V Neuro Reading Room HEMOGLOBIN [id number] 13:56:00 Test Item Value Reference Range Interpretation Comments HEMOGLOBIN A1C (BEAKER) (test code = 6.1 % 4.3-6.1 368) URINALYSIS W/ REFLEX URINE [id number] 13:15:00 Test Item Value Reference Range Interpretation [...] = 516) SOURCE(BEAKER) (test code = 2795) Room Worker ID - [auto]Room Worker ID - techRESPIRATORY PANEL [id number] 12:14:00 Test Item Value Reference Range Interpretation [...] decisions. This sample was tested at the [facility] using the LaunchTrack FilmArray Respiratory Panel. It is FDA cleared and has been verified and approved by the [facility] for clinical use on nasopharyngeal swab specimens.The performance of the FilmArrayRP has not been established in individuals who received influenza vaccine. Recent administration ofa nasal influenza vaccine may cause false positive results for Influenza A and/orInfluenza B.SARS-COV2/RT-PCR ([facility])2019-07-08 11:26:00 Test Item Value Reference Range Interpretation Comments SARS-COV2/RT-PCR (test Not Detected Not Detected, Negative code = 1957619) SARS-COV-2 PERFORMING LAB [facility] (test code = 2902021) Negative results do not preclude SARS-CoV-2 infection [...] of the Act.Fact Sheet for Healthcare Pro viders:https://www.Vascular Closure.Ayla/Documents/Xpert%20Xpress%20SARS%20CoV-2/Fact%20Sh eets/302-5330%82ZHFK-RKM-6%20HEALTHCARE%20PROVIDERS%20FACT%20SHEET.pdfFact Sheet for Healthcare Patients:https://www.Jelly HQ/Documents/Xpert%20Xpress%20SARS%20CoV-2/Fact%20Sheets/302-3801%20SARS-COV -2%20PATIENT%20FACT%20SHEET.pdfPerforming Laboratory:[facility], [place] [address]TDVQK METABOLIC [id number] 10:06:00 Test Item Value Reference Range Interpretation [...] 1092) DATA TO CALCULA TE ESTIMATED GFR. Room Worker ID - [id number] 10:05:00 Test Item Value Reference Range Interpretation Comments MAGNESIUM (BEAKER) (test code = 2.0 mg/dL 1.6-2.6 627) Room Worker ID - NTPHEPATIC FUNCTION [id number] 10:05:00 Test Item Value Reference Range Interpretation [...] (test code = 30 U/L 6-55 347) Room Worker ID - [id number] 09:53:00 Test Item Value Reference Range Interpretation [...] is2.5-3.5 for patients wiht mechanical heart valves.PROTHROMBIN TIME/[id number] 09:51:00 Test Item Value Reference Range Interpretation [...] for patients wiht mechanical heart valves.LACTIC ACID, [id number] 09:50:00 Test Item Value Reference Range Interpretation Comments LACTATE BLOOD VENOUS (2) (BEAKER) 2.87 mmol/L 0.50-2.20 H (test code = 2872) Room Worker ID - NTPCBC W/PLT COUNT & AUTO [id number] 09:41:00 Test Item Value Reference Range Interpretation [...] % 0-1 PERCENT (BEAKER) (test code = 4541)
[2021-03-14 04:51] LABS: Absolute Lymphocytes (CBC) 4.5 K/uL (0.7-4.9); Hematocrit 38.8 % (36.0-45.0); Lymphocytes % 45.4 % (15.3-44.8); MPV 8.7 fL (7.6-11.3); RBC Red Blood Cell Count 4.58 M/uL (3.86-4.86)
[2021-03-14] MEDS ORDERED: FUROSEMIDE 40 MG/4 ML VIAL ONE ×3 (04:55→17:33)
[2021-03-14] MEDS ORDERED: NITROGLYCERIN/D5W 50 MG/250 ML BTL IV ONE (04:56)
[2021-03-14 05:12] LABS: Protime INR 1.01
[2021-03-14 05:20] LABS: Albumin 3.1 g/dL (3.4-5.0); Bilirubin Direct 0.1 mg/dL (0-0.2); Bilirubin Total 0.5 mg/dL (0.2-1.0); Magnesium 2.5 mg/dL (1.8-2.4); Potassium 3.5 mmol/L (3.5-5.1); Troponin High Sensitivity 23.9 pg/mL (<58.9)
[2021-03-14 06:06] LABS: SARS-COV-2 RT PCR NEGATIVE (NEGATIVE)
[2021-03-14 06:46] LABS: Urine Blood Trace-intact (Negative); Urine Glucose Negative (Negative); Urine Protein Negative (Negative); Urine pH 5.5 (5.0-7.0)
--- NOTE | 2021-03-14 06:52 | EDPHYS ---
Physician Documentation [facility] Name: Erika Jacobson Age: 85 yrs Sex: Female : 1935 Arrival Date: 03/14/2021 Time: 04:07 Bed 8 Private MD: ED Physician Chao Aponte HPI: 03/14 04:42 This 85 yrs old Female presents to ER via Wheelchair with complaints of mh7 Breathing Difficulty. 04:42 The patient has shortness of breath at rest. Onset: The symptoms/episode began/occurred mh7 today. Duration: The symptoms are continuous, and are steadily getting worse. The patient's shortness of breath is aggravated by exertion, light activity, is alleviated by nothing. Associated signs and symptoms: Pertinent negatives: chest pain, non-productive cough, productive cough, diaphoresis, dizziness, fever, hemoptysis, loss of consciousness, nausea, numbness in extremities, visual changes, vomiting. Severity of symptoms: At their worst the symptoms were moderate today, in the emergency department the symptoms are unchanged. Historical: - Allergies: 04:19 No Known Allergies; as6 - Home Meds: 04:19 amlodipine 5 mg tab 1 tab once daily [Active]; aspirin 81 mg Oral chew 1 tab once daily as6 [Active]; atorvastatin 40 mg Oral tab 1 tab once daily [Active]; losartan 100 mg Oral tab 1 tab once daily [Active]; tramadol 50 mg Oral tab 1 tab every 4-6 hours [Active]; ventolin inhaler [Active]; - PMHx: 04:19 CVA; Hyperlipidemia; Hypertension; Asthma; as6 - PSHx: 04:19 choleycestectomy; kidney stones; as6 - Immunization history:: Client reports receiving the 2nd dose of the Covid vaccine. - Social history:: Smoking status: Patient denies any tobacco usage or history of. ROS: 04:42 Constitutional: Negative for fever, chills, and weight loss, Eyes: Negative for injury, mh7 pain, redness, and discharge, ENT: Negative for injury, pain, and discharge, Neck: Negative for injury, pain, and swelling, Cardiovascular: Negative for chest pain, palpitations, and edema, Abdomen/GI: Negative for abdominal pain, nausea, vomiting, diarrhea, and constipation, Back: Negative for injury and pain, : Negative for injury, bleeding, discharge, and swelling, MS/Extremity: Negative for injury and deformity, Skin: Negative for injury, rash, and discoloration, Neuro: Negative for headache, weakness, numbness, tingling, and seizure, Psych: Negative for depression, anxiety, suicide ideation, homicidal ideation, and hallucinations, Allergy/Immunology: Negative for hives, rash, and allergies, Endocrine: Negative for neck swelling, polydipsia, polyuria, polyphagia, and marked weight changes, Hematologic/Lymphatic: Negative for swollen nodes, abnormal bleeding, and unusual bruising. Exam: 04:42 Head/Face: Normocephalic, atraumatic. Eyes: Pupils equal round and reactive to light, mh7 extra-ocular motions intact. Lids and lashes normal. Conjunctiva and sclera are non-icteric and not injected. Cornea within normal limits. Periorbital areas with no swelling, redness, or edema. Neck: Trachea midline, no thyromegaly or masses palpated, and no cervical lymphadenopathy. Supple, full range of motion without nuchal rigidity, or vertebral point tenderness. No Meningismus. Chest/axilla: Normal chest wall appearance and motion. Nontender with no deformity. No lesions are appreciated. 04:42 Abdomen/GI: Soft, non-tender, with normal bowel sounds. No distension or tympany. No guarding or rebound. No evidence of tenderness throughout. Back: No spinal tenderness. No costovertebral tenderness. Full range of motion. Skin: Warm, dry with normal turgor. Normal color with no rashes, no lesions, and no evidence of cellulitis. MS/ Extremity: Pulses equal, no cyanosis. Neurovascular intact. Full, normal range of motion. Neuro: Awake and alert, GCS 15, oriented to person, place, time, and situation. Cranial nerves II-XII grossly intact. Motor strength 5/5 in all extremities. Sensory grossly intact. Cerebellar exam normal. Normal gait. 04:42 Constitutional: The patient appears alert, awake, in obvious distress, moderately distressed, obviously ill. 04:42 Cardiovascular: Rate: tachycardic, Rhythm: regular, Pulses: no pulse deficits are appreciated, Heart sounds: normal, normal S1and S2, Edema: pedal edema, that is mild, JVD: is not appreciated. 04:42 Respiratory: moderate respiratory distress is noted, Respirations: labored breathing, that is moderate, accessory muscle usage, that is mild, tachypnea, that is mild, Breath sounds: rales, that are moderate, are heard diffusely, Respiratory rate: 26 Vital Signs: 04:15 BP 213 / 91; Pulse 111; Resp 24 S; Temp 96.6(A); Pulse Ox 70% on R/A; Weight 72.57 kg as6 (R); Height 4 ft. 8 in. (142.24 cm) (R); 04:30 Temp 97.0(TE); Pulse Ox 100% on 15% Non-rebreather mask; as6 05:12 BP 133 / 61; Pulse 83; Resp 15 S; Pulse Ox 95% on BiPAP; as6 06:04 BP 116 / 72; Pulse 70; Resp 13 S; Pulse Ox 100% on BiPAP; as6 06:50 BP 128 / 65; Pulse 84; Resp 16 S; Pulse Ox 97% on R/A; as6 04:15 Body Mass Index 35.87 (72.57 kg, 142.24 cm) as6 MDM: 06:51 Differential diagnosis: Anemia Anxiety Reaction asthma, Bronchitis CHF exacerbation, mh7 Chronic Obstructive Pulmonary Disease Myocardial Infarction pneumonia, Pneumothorax Psychogenic pulmonary edema, reactive airway disease. Data reviewed: vital signs, nurses notes, old medical records, lab test result(s), cardiac enzymes, CBC, electrolytes, EKG, radiologic studies, plain films. Data interpreted: Pulse oximetry: on 2L(s) per nasal canula, is 98 %. Interpretation: normal. Counseling: I had a detailed discussion with the patient and/or guardian regarding: the historical points, exam findings, and any diagnostic results supporting the discharge/admit diagnosis, lab results, radiology results, the need for further work-up and treatment in the hospital. Response to treatment: the patient's symptoms have markedly improved after treatment. 06:52 Patient medically screened. 03/14 04:24 Order name: Basic Metabolic Panel; Complete Time: 03/14 04:24 Order name: CBC with Diff; Complete Time: 05:16 03/14 04:24 Order name: LFT's; Complete Time: 03/14 04:24 Order name: Magnesium; Complete Time: 30 04:24 Order name: NT PRO-BNP; Complete Time: 06:27 03/14 04:24 Order name: PT-INR; Complete Time: 05:16 03/14 04:24 Order name: Troponin HS; Complete Time: 06:27 03/14 04:24 Order name: XRAY Chest (1 view); Complete Time: 19:21 03/14 04:35 Order name: Blood Culture Adult (2) 03/14 04:35 Order name: Lactate; Complete Time: 06:27 03/14 05:03 Order name: COVID-19/FLU A+B/RSV (Document "Date of Onset" if Symptomatic); Complete cs9 Time: 06:03/14 06:46 Order name: Urine Dipstick-Ancillary; Complete Time: 06:47 EDMS 03/14 08:22 Order name: Lactate Sepsis 2 HR Follow-up; Complete Time: 19:21 EDMS 03/14 04:24 Order name: EKG; Complete Time: 04:25 03/14 04:24 Order name: Cardiac monitoring; Complete Time: 04:33 03/14 04:24 Order name: EKG - Nurse/Tech; Complete Time: 04:33 03/14 04:24 Order name: IV Saline Lock; Complete Time: 04:33 03/14 04:24 Order name: Labs collected and sent; Complete Time: 04:44 03/14 04:24 Order name: O2 Per Protocol; Complete Time: 04:33 03/14 04:24 Order name: O2 Sat Monitoring; Complete Time: 04:33 03/14 04:24 Order name: BIPAP 03/14 06:28 Order name: Urine Dipstick-Ancillary (obtain specimen); Complete Time: 06:50 03/14 10:45 Order name: Diet Heart Healthy; Complete Time: 10:46 jl7 Administered Medications: 05:01 Drug: Lasix (furosemide) 40 mg Route: IVP; Site: left antecubital; as6 05:28 Follow up: Response: No adverse reaction 05:01 Drug: Nitro Drip - (Nitroglycerin 50 mg, D5W 250 ml) Route: IV; Rate: 20 mcg/min; Site: as6 left antecubital; 06:51 Follow up: Response: No adverse reaction; IV Status: Order to discontinue infusion; IV as6 Intake: 10ml Disposition Summary: 03/14/21 06:52 Hospitalization Ordered Hospitalization Status: Inpatient Admission [facility] Provider: Rufino Flores Condition: Stable [facility] Problem: an acute exacerbation 7 Symptoms: have improved [facility] Bed/Room Type: Standard [facility] Location: Telemetry/MedSurg (Inpatient)(03/14/21 16:39) Room Assignment: [facility](03/14/21 16:39) Diagnosis - 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
--- NOTE | 2021-03-14 06:52 | ER ---
Nurse's Notes [facility] Name: Erika Jacobson Age: 85 yrs Sex: Female : 1935 Arrival Date: 03/14/2021 Time: 04:07 Bed 8 Private MD: Diagnosis: Acute on chronic combined systolic (congestive) and diastolic (congestive) heart failure Presentation: 03/14 04:15 Chief complaint: Patient's son or daughter states: "My mom is having an asthma attack". as6 Coronavirus screen: Client presents with at least one sign or symptom that may indicate coronavirus-19. Standard/surgical mask placed on the client. Provider contacted for isolation considerations. Ebola Screen: No symptoms or risks identified at this time. Initial Sepsis Screen: Does the patient meet any 2 criteria? HR > 90 bpm. Yes Does the patient have a suspected source of infection? No. Patient's initial sepsis screen is negative. Risk Assessment: Do you want to hurt yourself or someone else? Patient reports no desire to harm self or others. Onset of symptoms was March 14, 2021. 04:15 Method Of Arrival: Wheelchair as6 04:15 Acuity: ISHAN 2 as6 Triage Assessment: 05:12 General: Appears ill. Respiratory: Reports shortness of breath labored breathing Onset: as6 The symptoms/episode began/occurred today, the patient has moderate shortness of breath. Historical: - Allergies: 04:19 No Known Allergies; as6 - Home Meds: 04:19 amlodipine 5 mg tab 1 tab once daily [Active]; aspirin 81 mg Oral chew 1 tab once daily as6 [Active]; atorvastatin 40 mg Oral tab 1 tab once daily [Active]; losartan 100 mg Oral tab 1 tab once daily [Active]; tramadol 50 mg Oral tab 1 tab every 4-6 hours [Active]; ventolin inhaler [Active]; - PMHx: 04:19 CVA; Hyperlipidemia; Hypertension; Asthma; as6 - PSHx: 04:19 choleycestectomy; kidney stones; as6 - Immunization history:: Client reports receiving the 2nd dose of the Covid vaccine. - Social history:: Smoking status: Patient denies any tobacco usage or history of. Screenin:08 Abuse screen: Denies threats or abuse. Denies injuries from another. Nutritional as6 screening: No deficits noted. Tuberculosis screening: No symptoms or risk factors identified. Fall Risk Secondary diagnosis (15 points) impaired mobility, IV access (20 points). Ambulatory Aid- Crutches/Cane/Walker (15 pts). Gait- Weak (10 pts.). Mental Status- Oriented to own ability (0 pts). Total Gonzales Fall Scale indicates High Risk Score (45 or more points). Fall prevention measures have been instituted. Side Rails Up X 2 Frequent Obs/Assessments Occuring Family Present and informed to notify staff if the need to leave the bedside As available patient and family educated on Fall Prevention Program and Strategies. Assessment: 04:15 General: Appears ill, Behavior is calm, cooperative. Pain: Unable to use pain scale. as6 Does not appear to understand pain scale. Neuro: Level of Consciousness is awake, alert, obeys commands. Cardiovascular: Edema is 3+ to BLE pitting to BLE Rhythm is sinus rhythm. Respiratory: Airway is patent Trachea midline Respiratory effort is labored, Respiratory pattern is regular, symmetrical, Breath sounds with crackles bilaterally. 05:51 General: assisted pt to bedpan . Respiratory: Respiratory effort is unlabored. as6 06:50 Reassessment: Patient appears in no apparent distress at this time. General: pt removed as6 from bipap. Respiratory: Respiratory effort is unlabored. Vital Signs: 04:15 BP 213 / 91; Pulse 111; Resp 24 S; Temp 96.6(A); Pulse Ox 70% on R/A; Weight 72.57 kg as6 (R); Height 4 ft. 8 in. (142.24 cm) (R); 04:30 Temp 97.0(TE); Pulse Ox 100% on 15% Non-rebreather mask; as6 05:12 BP 133 / 61; Pulse 83; Resp 15 S; Pulse Ox 95% on BiPAP; as6 06:04 BP 116 / 72; Pulse 70; Resp 13 S; Pulse Ox 100% on BiPAP; as6 06:50 BP 128 / 65; Pulse 84; Resp 16 S; Pulse Ox 97% on R/A; as6 04:15 Body Mass Index 35.87 (72.57 kg, 142.24 cm) as6 ED Course: 04:07 Patient arrived in ED. [email or web address] 04:07 Ruby Cardoza, RN is Primary Nurse. bb 04:07 Stevo Jean, RN is Primary Nurse. bb 04:12 Chao Aponte MD is Attending Physician. 7 04:19 Triage completed. as6 04:25 Arm band placed on. as6 04:39 XRAY Chest (1 view) In Process Unspecified. EDMS 04:44 Lactate Sent. as6 04:44 Blood Culture Adult (2) Sent. as6 04:44 Basic Metabolic Panel Sent. as6 04:44 CBC with Diff Sent. as6 04:44 LFT's Sent. as6 04:44 Magnesium Sent. as6 04:44 NT PRO-BNP Sent. as6 04:44 PT-INR Sent. as6 04:44 Troponin HS Sent. as6 05:09 Placed in gown. Bed in low position. Call light in reach. Side rails up X2. Adult w/ as6 patient. nurse monitoring on. Pulse ox on. NIBP on. Family accompanied patient. 05:11 COVID-19/FLU A+B/RSV (Document "Date of Onset" if Symptomatic) Sent. as6 05:11 Lactate Sent. as6 05:11 Blood Culture Adult (2) Sent. as6 05:11 Basic Metabolic Panel Sent. as6 05:11 LFT's Sent. as6 05:11 Magnesium Sent. as6 05:11 NT PRO-BNP Sent. as6 05:11 PT-INR Sent. as6 05:11 Troponin HS Sent. as6 05:27 Notified ED physician of a critical lab result(s). Lactate 6.1. bb 06:52 Rufino Flores is Hospitalizing Provider. [facility] 07:00 No provider procedures requiring assistance completed. Patient admitted, IV remains in jl7 place. No redness/swelling at site. 07:09 Primary Nurse role handed off by Stevo Jean, VIVIENNE eb 07:32 Akua Daniel, RN is Primary Nurse. ph Administered Medications: 05:01 Drug: Lasix (furosemide) 40 mg Route: IVP; Site: left antecubital; as6 05:28 Follow up: Response: No adverse reaction as6 05:01 Drug: Nitro Drip - (Nitroglycerin 50 mg, D5W 250 ml) Route: IV; Rate: 20 mcg/min; Site: as6 left antecubital; 06:51 Follow up: Response: No adverse reaction; IV Status: Order to discontinue infusion; IV as6 Intake: 10ml Intake: 06:51 IV: 10ml; Total: 10ml. as6 Outcome: 06:52 Decision to Hospitalize by Provider. 7 07:00 Admitted to ER Hold. Please see [facility] for further documentation. [facility] 07:00 Condition: stable 07:00 Discharge instructions given to patient, Instructed on the need for admit, Demonstrated understanding of instructions. 18:11 Patient left the ED. ll1 Signatures: Dispatcher [employer] EDMS Ruby Cardoza, RN RN Akua Murphy RN RN Marla Potter RN RN jl7 Ivet [place] Lynsay, RN RN ll1 Chao Aponte MD MD 7 Stevo Jean RN RN as6 Janelle Scott kc5 Corrections: (The following items were deleted from the chart) 05:08 04:15 BP 213 / 91; Pulse 111bpm; Resp 24bpm; Spontaneous; Pulse Ox 70% RA; Temp 96.6F as6 Axillary; 72.57 kg Reported; Height 4 ft. 6 in. Reported; BMI: 38.5; as6
--- NOTE | 2021-03-14 08:17 | RAD REPORT ---
EXAM DESCRIPTION: RAD - Chest Single View - 03/14/2021 4:40 am CLINICAL HISTORY: SOB COMPARISON: Portable 02/23/2021 TECHNIQUE: AP portable chest image was obtained 03/14/2021 4:40 am . FINDINGS: No focal consolidation or underlying mass lesion. Interstitial markings are prominent thro ughout the lung iyer. Interstitial and alveolar opacities are more pronounced in each lung base. Fi ndings are slightly less pronounced when compared to February 23 imaging. Heart size is normal. Pulmonary vasculature within normal limits. Trachea is midline. No measurable pleural effusion and no pneumothorax. No acute bony abnormality seen. No acute aortic findings suspected. IMPRESSION: Interstitial edema or infiltrate pattern in each lung base superimposed on chronic inter stitial lung disease. Chest findings are less prominent than seen on the February 23 imaging.
--- NOTE | 2021-03-14 08:42 | P.HP ---
Certification for Inpatient Patient admitted to: Observation With expected LOS: <2 Midnights Practitioner: I am a practitioner with admitting privileges, knowledge of patient current condition, hospital course, and medical plan of care. Services: Services provided to patient in accordance with Admission requirements found in Title 42 Section 412.3 of the Code of Federal Regulations Patient History Date of Service: 03/14/21 Reason for admission: Shortness of breath History of Present Illness: 85-year-old woman recently hospitalized for heart failure, left bundle branch block, elevated troponin, echocardiogram demonstrating normal EF but paradoxical septal movement presented to the emergency department with a complaint of shortness of breath. Patient was hypoxic on room air on arrival, noted to be in respiratory distress and placed on BiPAP. Her blood pressure was also severely elevated. She was started on nitroglycerin drip and given IV Lasix after which she improved and was subsequently weaned off BiPAP to oxygen by nasal cannula. Patient was tolerating room air during my assessment in the ED. Currently normotensive. Patient hospitalized for further management of CHF exacerbation. Allergies No Known Allergies Allergy (Verified 09/03/18 08:32) Home Medications: Albuterol Neb [Proventil 0.083% Neb Soln] 2.5 mg NEB [id number] #120 amp 02/25/21 Atorvastatin Calcium [Lipitor] 40 mg PO BEDTIME #30 tab 02/25/21 Furosemide [Lasix] 40 mg PO DAILY #30 tab 02/25/21 Potassium Chloride 20 meq PO DAILY #30 tablet.er 02/25/21 carvediloL [Coreg] 6.25 mg PO BID #60 tab 02/25/21 Aspirin [Aspirin EC 81 MG] 81 mg PO DAILY 03/14/21 Losartan Potassium 50 mg PO BID 03/14/21 - Past Medical/Surgical History Diabetic: No -: Hypertension -: Dyslipidemia -: CVA -: kidney stones -: Fatimah - Family History Family History: Reviewed- Non-Contributory - Social History Alcohol use: No CD- Drugs: No Caffeine use: Yes Review of Systems Other: Patient denied any chest pain, has intermittent nonproductive cough, denied any palpitation, denied any abdominal pain. Except as documented, all other systems reviewed and negative. Physical Examination - Physical Exam General: Alert, In no apparent distress, Other (Frail-appearing) HEENT: Mucous membr. moist/pink, Sclerae nonicteric Neck: Supple, JVD not distended Respiratory: Clear to auscultation bilaterally, Normal air movement Cardiovascular: No edema, Regular rate/rhythm, Normal S1 S2 Gastrointestinal: Normal bowel sounds, Soft and benign, Non-distended, No tenderness Musculoskeletal: No swelling, No tenderness Integumentary: No rashes, No erythema, No cyanosis Neurological: Normal speech, Normal strength at 5/5 x4 extr, Cranial nerves 3-12 intact Lymphatics: No axilla or inguinal lymphadenopathy - Studies Laboratory Data (last 24 hrs) 03/14/21 04:39: PT 11.6, INR 1.01 03/14/21 04:39: WBC 9.90, Hgb 12.1, Hct 38.8, Plt Count 281 03/14/21 04:39: Sodium 142, Potassium 3.5, BUN 13, Creatinine 0.77, Glucose 241 H, Magnesium 2.5 H, Total Bilirubin 0.5, AST 23, ALT 26, Alkaline Phosphatase 95 Assessment and Plan - Problems (Diagnosis) (1) Acute on chronic diastolic heart failure Current Visit: Yes Status: Acute (2) Acute respiratory failure with hypoxia Current Visit: Yes Status: Acute (3) Malignant hypertension Current Visit: Yes Status: Acute (4) LBBB (left bundle branch block) Current Visit: No Status: Acute (5) Acute asthma exacerbation Current Visit: No Status: Acute - Plan Patient respiratory status significantly improved. Who please see under observation. Lasix IV 40 mg every 12. Monitor intake and output. Blood pressure control-hydralazine IV as needed for BP spikes. Seen by PT, patient ambulating with no difficulty. Respiratory failure resolved. Albuterol as needed for asthma exacerbation. - Advance Directives Does patient have a Living Will: No Does patient have a Durable POA for Healthcare: No
[2021-03-14] MEDS ORDERED: ACETAMINOPHEN 500 MG TAB PO PRN (09:53)
[2021-03-14] MEDS ORDERED: ALBUTEROL 2.5 MG/3 ML NEB SOL NEB PRN (09:53)
[2021-03-14] MEDS: ASPIRIN EC 81 MG TAB PO SCH (12:30)
[2021-03-14 12:33] VITALS: BMI 35.9
[2021-03-14] MEDS ORDERED: ASPIRIN EC 81 MG TAB PO ONE (12:54)
[2021-03-14] MEDS ORDERED: ENOXAPARIN 40 MG/0.4 ML SQ ONE (12:54)
[2021-03-14] MEDS: FUROSEMIDE 40 MG/4 ML VIAL IV SCH ×2 (13:35→17:00)
[2021-03-14] MEDS: ENOXAPARIN 40 MG/0.4 ML SQ SCH (13:45)
[2021-03-14] MEDS ORDERED: INFLUENZA VACCINE (for 6+ mo) 0.5 ML DOSE IMVAC ONE (14:00)
[2021-03-14] MEDS ORDERED: PNEUMOCOCCAL VACCINE 0.5 ML IMVAC ONE (14:00)
[2021-03-15 06:07] LABS: Absolute Lymphocytes (CBC) 2.6 K/uL (0.7-4.9); Hematocrit 34.3 % (36.0-45.0); Lymphocytes % 33.4 % (15.3-44.8); MPV 9.3 fL (7.6-11.3); RBC Red Blood Cell Count 4.15 M/uL (3.86-4.86)
[2021-03-15] MEDS ORDERED: INFLUENZA VACCINE (for 6+ mo) 0.5 ML DOSE IMVAC ONE (06:22)
[2021-03-15] MEDS ORDERED: PNEUMOCOCCAL VACCINE 0.5 ML IMVAC ONE (06:23)
[2021-03-15 06:24] LABS: BUN Blood Urea Nitrogen 22 mg/dL (7-18); Bicarbonate 25 mmol/L (21-32); Glucose Level 118 mg/dL (74-106); NT PRO-BNP 1489 pg/mL (<450); Sodium Level 140 mmol/L (136-145)
[2021-03-15 07:15] VITALS: BP 121/59; TEMP 97.1
--- NOTE | 2021-03-15 08:56 | P.DS ---
Admission Date: 03/14/21 Discharge Date: 03/15/21 Disposition: ROUTINE DISCHARGE Discharge Condition: FAIR Reason for Admission: Shortness of breath - Problems (1) Acute on chronic diastolic heart failure Status: Acute (2) Acute respiratory failure with hypoxia Status: Acute (3) Malignant hypertension Status: Acute (4) LBBB (left bundle branch block) Status: Acute (5) Acute asthma exacerbation Status: Acute Brief History of Present Illness: 85-year-old woman recently hospitalized for heart failure, left bundle branch block, elevated troponin, echocardiogram demonstrating normal EF but paradoxical septal movement presented to the emergency department with a complaint of shortness of breath. Patient was hypoxic on room air on arrival, noted to be in respiratory distress and placed on BiPAP. Her blood pressure was also severely elevated. She was started on nitroglycerin drip and given IV Lasix after which she improved and was subsequently weaned off BiPAP to oxygen by nasal cannula. Patient was tolerating room air during my assessment in the ED. Currently normotensive. Patient hospitalized for further management of CHF exacerbation. Hospital Course: Patient placed on observation on the medical floor and treated for CHF exacerbation with IV Lasix. I suspect asthma/COPD exacerbation is a major contributory cause for her sudden onset shortness of breath. Patient respiratory condition improved rapidly, she was weaned off oxygen to room air which she tolerated. This morning patient has no complaint, seen sitting up in bed, she is ambulating without shortness of breath and feels her symptoms have resolved. Son was concerned about her gluteal rash that has been recurrent. On examination, noted healing erythematous rash that does not follow a specific dermatomal distribution. I suspect a recurrent fungal rash and patient prescribed clotrimazole. Also prescribe Trelegy for COPD. Patient and son has been shown how to use a nebulizer. Vital Signs/Physical Exam: Temp Pulse Resp BP Pulse Ox 97.1 F 69 18 121/59 L 98 03/15/21 04:00 03/15/21 04:00 03/15/21 04:00 03/15/21 04:00 03/15/21 04:00 General: Alert, In no apparent distress, Oriented x3 HEENT: Mucous membr. moist/pink Neck: JVD not distended Respiratory: Clear to auscultation bilaterally, Normal air movement Cardiovascular: No edema, Regular rate/rhythm, Normal S1 S2 Gastrointestinal: Normal bowel sounds, Soft and benign, No tenderness Musculoskeletal: No swelling Neurological: Normal strength at 5/5 x4 extr Laboratory Data at Discharge: WBC 7.60 K/uL (4.3-10.9) D 03/15/21 05:25 Hgb 11.2 g/dL (12.0-15.0) L 03/15/21 05:25 Hct 34.3 % (36.0-45.0) L 03/15/21 05:25 Plt Count 248 K/uL (152-406) 03/15/21 05:25 PT 11.6 SECONDS (9.5-12.5) 03/14/21 04:39 INR 1.01 03/14/21 04:39 Sodium 140 mmol/L (136-145) 03/15/21 05:25 Potassium 3.0 mmol/L (3.5-5.1) L 03/15/21 05:25 BUN 22 mg/dL (7-18) H 03/15/21 05:25 Creatinine 0.55 mg/dL (0.55-1.3) 03/15/21 05:25 Glucose 118 mg/dL (74-106) H 03/15/21 05:25 Magnesium 2.5 mg/dL (1.8-2.4) H 03/14/21 04:39 Total Bilirubin 0.5 mg/dL (0.2-1.0) 03/14/21 04:39 AST 23 U/L (15-37) 03/14/21 04:39 ALT 26 U/L (12-78) 03/14/21 04:39 Alkaline Phosphatase 95 U/L (45-117) 03/14/21 04:39 Home Medications: Albuterol Neb [Proventil 0.083% Neb Soln] 2.5 mg NEB [id number] #120 amp 02/25/21 Atorvastatin Calcium [Lipitor] 40 mg PO BEDTIME #30 tab 02/25/21 Furosemide [Lasix*] 40 mg PO DAILY #30 tab 02/25/21 Potassium Chloride 20 meq PO DAILY #30 tablet.er 02/25/21 carvediloL [Coreg*] 6.25 mg PO BID #60 tab 02/25/21 Aspirin [Aspirin EC 81 MG] 81 mg PO DAILY 03/14/21 Losartan Potassium 50 mg PO BID 03/14/21 Clotrimazole [Athlete's Foot] 60 gm TP BID #1 cream..g. 03/15/21 Fluticasone/Umeclidin/Vilanter [Trelegy Ellipta 100-62.5-25] 1 each IH DAILY #30 blst.w.dev 03/15/21 New Medications: Clotrimazole [Athlete's Foot] 60 gm TP BID #1 cream..g. Fluticasone/Umeclidin/Vilanter [Trelegy Ellipta 100-62.5-25] 1 each IH DAILY #30 blst.w.dev Followup: NONE,NONE [Primary Care Provider] -
[2021-03-15] MEDS: FUROSEMIDE 40 MG/4 ML VIAL IV SCH (09:00)
[2021-03-15] MEDS ORDERED: POTASSIUM CL SA 10 MEQ TAB PO ONE (09:00)
[2021-03-15 09:23] VITALS: O2SAT 98
[2021-03-15] MEDS: ENOXAPARIN 40 MG/0.4 ML SQ SCH (09:50)
[2021-03-15] MEDS: ASPIRIN EC 81 MG TAB PO SCH (09:50)
== END 2021-03-15 10:30 | disposition home or self-care (01) ==
LOC: ER 04:05 → INTOOBSV 08:37 → ERHOLD 08:37 → 2ND 17:20
PROVIDERS: ADMIT Internal Medicine; ATTEND Internal Medicine
DX: I11.0 Hypertensive heart disease with heart failure (principal); I50.33 Acute on chronic diastolic (congestive) heart failure; J96.01 Acute respiratory failure with hypoxia; J45.901 Unspecified asthma with (acute) exacerbation; J44.9 Chronic obstructive pulmonary disease, unspecified; I44.7 Left bundle-branch block, unspecified; R21 Rash and other nonspecific skin eruption; E78.5 Hyperlipidemia, unspecified; Z79.82 Long term (current) use of aspirin; Z79.899 Other long term (current) drug therapy; Z86.73 Personal history of transient ischemic attack (TIA), and cerebral infarction without residual deficits; Z87.442 Personal history of urinary calculi; Z90.49 Acquired absence of other specified parts of digestive tract; Z23 Encounter for immunization; Z20.822 Contact with and (suspected) exposure to COVID-19
CPT/HCPCS: 93005; 87040 ×2; 85025 ×2; 80048 ×2; 36415 ×2; 83735; 85610; 80076; 83605 ×2; 81003; 84484; 83880 ×2; 0241U; 71045; 90471 ×4; 90732; 97162; 94660 ×2; J1940 ×4; Q2035; J1650 ×2; G0378

== ENCOUNTER 2021-05-05 07:29 | Inpatient (IN) | payer OTHER ==
--- OUTSIDE RECORDS SUMMARY | 2021-05-05 07:33 | XMS REPORT | Continuity of Care Document ---
:1935 Author Organization [facility] t Address [address] [place] [address] Care Team Providers Name Role Phone Carmelita MURGUIA Primary Care Physician GABRIELA LI Attending Clinician Unavailable Larissa Germain MD Attending Clinician Lyla GLASS Attending Clinician Jyotsna Mcclain MD Attending Clinician Larissa GERMAIN Attending Clinician Unavailable Beto MURGUIA Attending Clinician Provider, Urgent Care Attending Clinician Unavailable Herbie Scott DO Attending Clinician Doctor Unassigned, Name Attending Clinician Unavailable 1, Lab Attending Clinician Unavailable Lab, Fam Pob I Attending Clinician Unavailable Kedar Attending Clinician Unavailable Jono Villalobos Attending Clinician [phone] Angela Attending Clinician Unavailable GABRIELA LI Admitting Clinician Unavailable LANE HARTMANN Admitting Clinician Unavailable Payers Payer Name Policy Type Policy Number Effective Date Expiration Date S ource Sliding Fee - Cat P [id number] 2019 2020 1 00:00:00 00:00:00 AARP/MEDICARE [id number] 2019 COMPLETE 00:00:00 COVID19 RUSTA [id number] Problems Condition Condition Condition Status Onset Resolution Last Treating Co mments Source Name Details Category Date Date Treatment Clinician Date Venous Venous Disease Active 2020-02 Univers reflux reflux 2-09 ity of 00:00: [place] [facility] Edema of Edema of Disease [...] y of on on 00:00: [place] [address] Medical Branch HLD HLD Disease Active 2016-02 Univers (hyperlipi (hyperlipi 0-02 it y of demia) demia) 00:00: [place] [address] Medical Branch History of History of Disease Active 2016-02 U nivers chest pain chest pain 0-02 it y of 00:00: [place] [address] Medical Branch Palpitatio Palpitatio Disease Active 2016-02 U nivers ns ns 0-02 ity of 00:00: [place] [address] Medical Branch Osteoporos Osteoporos Disease Active U nivers is is ity of [facility] Abnormal Abnormal Disease Active Unive rs EKG EKG ity of [facility] No known No known Disease [facility] r active active College problems problems of Medicin e Allergies, Adverse Reactions, Alerts Allergy Allergy Status Severity Reaction(s) Onset Inactive Treating Comm ents Source Name Type Date Date Clinician NO KNOWN Allergy Active [facility] Social History Social Habit Start Date Stop Date Quantity Comments Source Alcohol intake 2021-03-22 2021-03-22 Current University of 00:00:00 00:00:00 non-drinker of [facility] alcohol (finding) Branch Tobacco use and 2019-10-07 2019-10-07 Smokeless tobacco [facility] College of exposure 00:00:00 00:00:00 non-user Medicine Sex Assigned At [address] [facility] Co llege of 00:00:00 00:00:00 Medicine Smoking Status Start Date Stop Date Source Never smoked tobacco [facility] Kristine ege of Medicine Medications Ordered Filled Start Stop Current Ordering Indication Dosage Frequency Signature Comments Components Source Medication Medication Date Date Medication? Clinician (SIG) Name Name losartan 50 Yes [id number] 50mg Take 1 Univers mg tablet 3-22 tablet by ity o f 00:00: mouth 2 [place] (two) Medical times Branch daily. Magnesium Yes Take by [facility] 100 MG CAPS 3-21 mouth. Colleg e 10:29: 08 Medicin e Melatonin Yes Take by [facility] 10 MG TABS 3-21 mouth. [place] 10:29: of 08 Medicin e furosemide Yes 40mg Take 1 Unive rs 40 mg 3-17 tablet by ity of tablet 00:00: mouth [place] 00 daily. Medical Branch furosemide Yes 40mg Take 1 Unive rs 40 mg 3-17 tablet by ity of tablet 00:00: mouth [place] 00 daily. Medical Branch ATORVASTATI 2020-02 Yes [id number] 40mg TAKE 1 Univers N 40 mg 2-13 TABLET BY ity of tablet 00:00: MOUTH AT [place] 00 BEDTIME Medical Branch ATORVASTATI 2020-02 Yes [id number] 40mg TAKE 1 Univers N 40 mg 2-13 TABLET BY ity of tablet 00:00: MOUTH AT [place] [address] BEDTIME Medical Branch azelastine 2020-02 Yes [id number] 1{spray Use 1 Univers 137 mcg 2-02 } [facility] in ity of (0.1 %) 00:00: each [place] nasal spray 00 nostril 2 Med ical (two) Branch times daily. Use in each nostril as directed fluticasone 2020-02 Yes [id number] 2{puff} Inhale 2 Univers propionate 2-02 Puffs 2 ity of (FLOVENT 00:00: (two) [place] HFA) 44 00 times Medical mcg/actuati daily. Branch on inhaler Rinse mouth after each use. mirtazapine 2020-02 Yes [id number] 7.5mg Take 1 Univers 7.5 mg 2-02 tablet by ity of tablet 00:00: mouth at [place] [address] bedtime. Medical Branch azelastine 2020-02 Yes [id number] 1{spray Use 1 Univers 137 mcg 2-02 } [facility] in ity of (0.1 %) 00:00: each [place] nasal spray 00 nostril 2 Med ical (two) Branch times daily. Use in each nostril as directed fluticasone 2020-02 Yes [id number] 2{puff} Inhale 2 Univers propionate 2-02 Puffs 2 ity of (FLOVENT 00:00: (two) [place] HFA) 44 00 times Medical mcg/actuati daily. Branch on inhaler Rinse mouth after each use. mirtazapine 2020-02 Yes [id number] 7.5mg Take 1 Univers 7.5 mg 2-02 tablet by ity of tablet 00:00: mouth at [place] 00 bedtime. Medical Branch Magnesium 2020-02 Yes Take by [facility] 100 MG CAPS 1-10 mouth. [facility] e 15:46: of Medicin e Melatonin 2020-02 Yes Take by [facility] 10 MG TABS 1-10 mouth. [place] 15:46: of Medicin e oxybutynin 2020-02 Yes 10mg Take 1 [facility] (DITROPAN 1-10 Tablet by [facility] ge XL) 10 MG 00:00: mouth of CR tablet 00 daily. Medicin e oxybutynin 2020-02 Yes 10mg Take 1 [facility] (DITROPAN 1-10 Tablet by [facility] ge XL) 10 MG 00:00: mouth of CR tablet 00 daily. Medicin e albuterol Yes [id number] 2{puff} Inhale 2 Univers (PROAIR 9-03 Puffs ity of HFA) 90 00:00: every 6 [place] mcg/actuati 00 (six) Medical on inhaler hours as Branc h needed for Wheezing or Shortness of Breath. albuterol Yes [id number] 2{puff} Inhale 2 Univers (PROAIR 9-03 Puffs ity of HFA) 90 00:00: every 6 [place] mcg/actuati 00 (six) Medical on inhaler hours as Branc h needed for Wheezing or Shortness of Breath. hydroCHLORO Yes [id number] 25mg Take 1 Univers thiazide 25 6-07 tablet by ity of mg tablet 00:00: mouth [place] 00 daily. Medical Branch amLODIPine Yes [id number] 2.5mg Take 1 Univers 2.5 mg 6-07 tablet by ity of tablet 00:00: mouth [place] 00 daily. Medical Branch hydroCHLORO 0 Yes [id number] 25mg Take 1 Univers thiazide 25 6-07 tablet by ity of mg tablet 00:00: mouth [place] 00 daily. Medical Branch amLODIPine 0 Yes [id number] 2.5mg Take 1 Univers 2.5 mg 6-07 tablet by ity of tablet 00:00: mouth [place] 00 daily. Medical Branch hydrochloro 2020-0 2020- No 25mg Take [address] [facility] thiazide 3-22 03-22 by mouth Colleg e (HYDRODIURI 16:58: 00:00 daily. of L) 25 MG 25 :00 Medicin tablet e Magnesium Yes Take by [facility] 100 MG CAPS 3-22 mouth. Colleg e 15:58: of 46 Medicin e Melatonin 0 Yes Take by [facility] 10 MG TABS 3-22 mouth. [place] 15:58: of 46 Medicin e hydrochloro 0 Yes 25mg Take 1 [facility] thiazide 3-22 Tablet by Colleg e (HYDRODIURI 00:00: mouth of L) 25 MG 00 daily. Medicin tablet e Potassium Yes Take [address] [facility] Citrate 3-22 tablets PO Colleg e (UROCIT-K 00:00: TID of 10) 10 MEQ 00 Medicin (1080 MG) e TBCR hydrochloro 0 Yes 25mg Take 1 [facility] thiazide 3-22 Tablet by Colleg e (HYDRODIURI 00:00: mouth of L) 25 MG 00 daily. Medicin tablet e Potassium Yes Take [address] [facility] Citrate 3-22 tablets PO Colleg e (UROCIT-K 00:00: TID of 10) 10 MEQ 00 Medicin (1080 MG) e TBCR hydrochloro 0 Yes 25mg Take 1 [facility] thiazide 3-22 Tablet by Colleg e (HYDRODIURI 00:00: mouth of L) 25 MG 00 daily. Medicin tablet e Potassium Yes Take [address] [facility] Citrate 3-22 tablets PO Colleg e (UROCIT-K 00:00: TID of 10) 10 MEQ 00 Medicin (1080 MG) e TBCR oxybutynin 0 Yes 10mg Take 1 [facility] (DITROPAN 3-22 Tablet by Colle ge XL) 10 MG 00:00: mouth of CR tablet 00 daily. Medicin e oxybutynin 0 2020- No 10mg Take 1 [facility] (DITROPAN 3-22 11-10 Tablet by [facility] ege XL) 10 MG 00:00: 00:00 mouth of CR tablet 00 :00 daily. Medicin e hydrochloro 2019- Yes 25mg Take 25 mg Art thiazide 1-23 by mouth [place] (HYDRODIURI 17:00: daily. of L) 25 MG 06 Medicin tablet e Magnesium 2019-02 Yes Take by [facility] 100 MG CAPS - mouth. Colleg e 17:00: of Medicin e Melatonin 2019-02 Yes Take by [facility] 10 MG TABS -23 mouth. College 17:00: of Medicin e Potassium 2019-02 Yes Take 2 Art Citrate 1-23 tablets PO Colleg e (UROCIT-K 00:00: TID of 10) 10 MEQ 00 Medicin (1080 MG) e TBCR Potassium 2019-02- No Take 2 [facility] Citrate 1-23 03-22 tablets PO Colle ge (UROCIT-K 00:00: 00:00 TID of 10) 10 MEQ 00 :00 Medicin (1080 MG) e TBCR levothyroxi 2019-02 Yes 25ug Take 25 [place] [facility] ne 1-02 mcg by [place] (SYNTHROID) 00:00: mouth. of 25 MCG 00 Medicin tablet e levothyroxi 2019-02 Yes 25ug Take 25 [place] [facility] ne 1-02 mcg by College (SYNTHROID) 00:00: mouth. of 25 MCG 00 Medicin tablet e levothyroxi 2019-02- No 25ug Take 25 [facility] ne 1-02 11-10 mcg by [place] (SYNTHROID) 00:00: 00:00 mouth. of 25 MCG 00 :00 Medicin tablet e aspirin 81 2019-02 Yes [id number] 81mg Take 1 Univers mg chewable 0-01 [id number] tablet by i ty of tablet 00:00: mouth [place] 00 daily. Medical Branch pantoprazol 2019-02 Yes [id number] 20mg Take 1 Univers e 20 mg EC 0-01 tablet by ity of tablet 00:00: mouth [place] 00 daily. Medical Take 30 Branch mins before breakfast. aspirin 81 2019-02 Yes [id number] 81mg Take 1 Univers mg chewable 0-01 [id number] tablet by i ty of tablet 00:00: mouth [place] 00 daily. Medical Branch pantoprazol 2019-02 Yes [id number] 20mg Take 1 Univers e 20 mg EC 0-01 tablet by ity of tablet 00:00: mouth [place] 00 daily. Medical Take 30 Branch mins before breakfast. atorvastati Yes [facility] n (LIPITOR) 6-13 College 40 MG 00:00: of tablet 00 Medicin e atorvastati 2020-[address] [facility] n (LIPITOR) 6-13 College 40 MG 00:00: of tablet 00 Medicin e atorvastati 2020-[address] [facility] n (LIPITOR) 6-13 College 40 MG 00:00: of tablet 00 Medicin e atorvastati 2020-[address] [facility] n (LIPITOR) 6-13 College 40 MG 00:00: of tablet 00 Medicin e atorvastati 2020-[address] [facility] n (LIPITOR) 6-13 College 40 MG 00:00: of tablet 00 Medicin e amlodipine 2020-[address] [facility] (NORVASC) 5 6-02 College MG tablet 00:00: of 00 Medicin e amlodipine 2020-[address] [facility] (NORVASC) 5 6-02 College MG tablet 00:00: of 00 Medicin e amlodipine 2020-[address] [facility] (NORVASC) 5 6-02 College MG tablet 00:00: of 00 Medicin e amlodipine 2020-[address] [facility] (NORVASC) 5 6-02 College MG tablet 00:00: of 00 Medicin e amlodipine 2020-[address] [facility] (NORVASC) 5 6-02 College MG tablet 00:00: of 00 Medicin e losartan 2020-[address] [facility] (COZAAR) 5-30 College 100 MG 00:00: of tablet 00 Medicin e losartan 2020-[address] [facility] (COZAAR) 5-30 College 100 MG 00:00: of tablet 00 Medicin e losartan 2020-[address] [facility] (COZAAR) 5-30 College 100 MG 00:00: of tablet 00 Medicin e losartan 2020-[address] [facility] (COZAAR) 5-30 College 100 MG 00:00: of tablet 00 Medicin e losartan 2020-[address] [facility] (COZAAR) 5-30 College 100 MG 00:00: of tablet 00 Medicin e (AMOXICILLI 2020-0 Yes Mirella 4 tablets [facility]) 500 MG 5-12 Jono by mouth Comm uni CAPS 00:00: Wilfredo every 1 hr ty 00 prior to Health appointmen t for premedicat ion aspirin EC Yes 81mg Take 81 mg B a[place] [...] Immunizations Ordered Filled Immunization Date Status Comments Sourc e Immunization Name Name SARS-COV-2 COVID-19 2021-01-15 Completed Unive rsity of MODERNA BOOSTER 00:00:00 [facility] VACCINE Branch SARS-COV-2 COVID-19 2021-01-15 Completed Unive rsity of MODERNA BOOSTER 00:00:00 [facility] VACCINE [place] Influenza High Dose 2019-11-08 Completed Unive rsity of [place] 00:00:00 [facility] Influenza High Dose 2019-11-08 Completed Unive rsity of [place] 00:00:00 [facility] Influenza High Dose 2019-02-13 Completed Unive rsity of 00:00:00 [facility] Influenza High Dose 2019-02-13 Completed Unive rsity of 00:00:00 [facility] TDAP 2017-11-10 Completed University of 00:00:00 [facility] TDAP 2017-11-10 Completed University of 00:00:00 [facility] Pneumococcal 2017-06-09 Completed University o f Polysaccharide, 00:00:00 [facility] ical PPSV23 (PNEUMOVAX) Branch Pneumococcal 2017-06-09 Completed University o f Polysaccharide, 00:00:00 [facility] PPSV23 (PNEUMOVAX) [place] Influenza High Dose 2016-11-14 Completed Unive rsity of 00:00:00 [facility] Influenza High Dose 2016-11-14 Completed Unive rsity of 00:00:00 [facility] Vital Signs Vital Name Observation Time Observation Value Comments Source HEIGHT 2019-07-08 00:00:00 147.3 cm WEIGHT 2019-07-08 00:00:00 57.743 kg Systolic blood 2021-05-03 15:25:00 121 mm[Hg] [facility] pressure Medicine Diastolic blood 2021-05-03 15:25:00 65 mm[Hg] [facility] pressure Medicine Heart rate 2021-05-03 15:25:00 88 /min [facility] ollege of Medicine Systolic blood 2020-12-23 21:48:00 137 mm[Hg] [facility] pressure Medicine Diastolic blood 2020-12-23 21:48:00 69 mm[Hg] [facility] Medicine Heart rate 2020-12-23 21:48:00 73 /min [facility] ollege of Medicine Body temperature 2020-12-23 21:48:00 36.83 Monique [facility] Respiratory rate 2020-12-23 21:48:00 15 /min [facility] Body height 2020-12-23 21:48:00 162.6 cm [facility] ollege of [facility] Body weight 2020-12-23 21:48:00 58.968 kg [facility] ollege of [facility] BMI 2020-12-23 21:48:00 22.31 kg/m2 [facility] ollege of Medicine Systolic blood 2020-05-04 15:57:00 131 mm[Hg] [facility] Medicine Diastolic blood 2020-05-04 15:57:00 60 mm[Hg] [facility] Medicine Heart rate 2020-05-04 15:57:00 67 /min [facility] ollege of Medicine Respiratory rate 2020-05-04 15:57:00 18 /min [facility] Body height 2020-05-04 15:57:00 147.3 cm [facility] ollege of [facility] Body weight 2020-05-04 15:57:00 58.514 kg [facility] ollege of Medicine BMI 2020-05-04 15:57:00 26.96 kg/m2 [facility] ollege of Medicine Systolic blood 2020-01-06 16:58:00 146 mm[Hg] [facility] pressure Medicine Diastolic blood 2020-01-06 16:58:00 71 mm[Hg] [facility] pressure Medicine Heart rate 2020-01-06 16:58:00 88 /min [facility] ollege of Medicine Body temperature 2020-01-06 16:58:00 36.44 Monique [facility] Respiratory rate 2020-01-06 16:58:00 16 /min [facility] Body height 2020-01-06 16:58:[address] [facility] C ollege of Medicine Body weight 2020-01-06 16:58:00 58.968 kg [facility] ollege of Medicine BMI 2020-01-06 16:58:00 28.13 kg/m2 [facility] C ollege of Medicine Systolic blood 2020-01-06 16:58:00 146 mm[Hg] [facility] of pressure Medicine Diastolic blood 2020-01-06 16:58:00 71 mm[Hg] [facility] of pressure Medicine Heart rate 2020-01-06 16:58:00 88 /min [facility] ollege of Medicine Body temperature 2020-01-06 16:58:00 36.44 Monique [facility] Respiratory rate 2020-01-06 16:58:00 16 /min [facility] Body height 2020-01-06 16:58:00 144.8 cm [facility] ollege of Medicine Body weight 2020-01-06 16:58:00 58.968 kg [facility] ollege of Medicine BMI 2020-01-06 16:58:00 28.13 kg/m2 [facility] ollege of Medicine Systolic blood 2019-10-07 14:05:00 127 mm[Hg] [facility] Medicine Diastolic blood 2019-10-07 14:05:00 67 mm[Hg] [facility] Medicine Heart rate 2019-10-07 14:05:00 70 /min [facility] ollege of Medicine Body temperature 2019-10-07 14:05:00 36.39 Monique [facility] Respiratory rate 2019-10-07 14:05:00 16 /min [facility] Body height 2019-10-07 14:05:00 162.6 cm [facility] ollege of Medicine Body weight 2019-10-07 14:05:00 58.968 kg [facility] ollege of Medicine BMI 2019-10-07 14:05:00 22.31 kg/m2 [facility] ollege of Medicine Systolic blood 2019-10-07 14:05:00 127 mm[Hg] [facility] Medicine Diastolic blood 2019-10-07 14:05:00 67 mm[Hg] [facility] Medicine Heart rate 2019-10-07 14:05:00 70 /min [facility] Body temperature 2019-10-07 14:05:00 36.39 Monique [facility] Respiratory rate 2019-10-07 14:05:00 16 /min [facility] Body height 2019-10-07 14:05:00 162.6 cm [facility] Body weight 2019-10-07 14:05:00 58.968 kg [facility] BMI 2019-10-07 14:05:00 22.31 kg/m2 [facility] HEIGHT 2019-07-08 00:00:00 147.3 cm WEIGHT 2019-07-08 00:00:00 57.743 kg pulse rate 2019-07-01 08:14:01 80 /min [facility] blood pressure, 2019-07-01 08:14:01 71 mm[Hg] [facility] diastolic Health blood pressure, 2019-07-01 08:14:01 171 mm[Hg] [facility] systolic Health pulse rate 2019-06-25 09:35:00 76 /min [facility] blood pressure, 2019-06-25 09:35:00 77 mm[Hg] [facility] diastolic Health blood pressure, 2019-06-25 09:35:00 153 mm[Hg] [facility] systolic Health Procedures Procedure Date / Time Performed Performing Clinician Alyssa kebede POCT URINALYSIS 2020-12-23 00:00:00 [facility] Medicine POCT URINALYSIS 2020-01-06 00:00:00 [facility] of [facility] Medicine BASIC METABOLIC PANEL 2019-10-07 14:32:00 Adams Germain [facility] MAGNESIUM 2019-10-07 14:32:00 [facility] of Medicine URIC ACID 2019-10-07 14:32:00 [facility] of Medicine Plan of Care Planned Activity Planned Date Details Comments Source Future Scheduled 2021-05-04 ZOSTER VACCINE (1 of [employer] [facility] [employer] Test 15:51:29 2) [code = ZOSTER of Medicin e VACCINE (1 of 2)] Future Scheduled 2021-05-04 Screening for Art Col lege Test 15:51:29 osteoporosis of Medicine (procedure) [code = 404510421] Future Scheduled 2021-05-04 Pneumococcal 65+ (1 [facility] Test 15:51:29 of 1 - PPSV23) [code of Medi cine = Pneumococcal 65+ (1 of 1 - PPSV23)] Future Scheduled 2021-05-04 MEDICARE AWV Art Kristine ege Test 15:51:29 (Initial) [code = of Medicin e MEDICARE AWV (Initial)] Future Scheduled 2021-05-04 FLU VACCINE > [address] [facility] C ollege Test 15:51:29 MONTHS [code = FLU of Medici ne VACCINE > 6 MONTHS] Future Scheduled 2021-05-04 COVID-19 Vaccine (2 [facility] Test 15:51:29 - Moderna 3-dose of Medicine series) [code = COVID-19 Vaccine (2 - Moderna 3-dose series)] Future Scheduled 2021-05-04 FALL SCREEN [code = [facility] Test 15:51:29 FALL SCREEN] of Medicine Future Scheduled 2021-05-04 TETANUS SHOT (ADULT) [employer] [facility] [employer] Test 15:51:29 [code = TETANUS SHOT of Medi cine (ADULT)] Future Scheduled 2021-05-04 US RENAL BILATERAL Expected: [facility] Test 00:00:00 [code = 44537] 05/04/2021, of Medicine Expires: 05/04/2021 Future Scheduled 2021-01-03 COVID-19 Vaccine (1) [employer] [facility] [employer] Test 08:34:34 [code = COVID-19 of Medicine Vaccine (1)] Future Scheduled 2021-01-03 ZOSTER VACCINE (1 of [employer] [facility] [employer] Test 08:34:34 2) [code = ZOSTER of Medicin e VACCINE (1 of 2)] Future Scheduled 2021-01-[address] [facility] Col lege Test 08:34:34 osteoporosis of Medicine (procedure) [code = 570096843] Future Scheduled 2021-01-03 Pneumococcal 65+ (1 [facility] Test 08:34:34 of 1 - PPSV23) [code of Medi cine = Pneumococcal 65+ (1 of 1 - PPSV23)] Future Scheduled 2021-01-[address] [facility] Kristine ege Test 08:34:34 (Initial) [code = of Medicin e MEDICARE AWV (Initial)] Future Scheduled 2021-01-03 FLU VACCINE > [address] [facility] C ollege Test 08:34:34 MONTHS [code = FLU of Medici ne VACCINE > 6 MONTHS] Future Scheduled 2021-01-03 FALL SCREEN [code = [facility] Test 08:34:34 FALL SCREEN] of Medicine Future Scheduled 2021-01-03 TETANUS SHOT (ADULT) [employer] [facility] [employer] Test 08:34:34 [code = TETANUS SHOT of Medi cine (ADULT)] Diagnostic Test 2020-07-11 US RENAL BILATERAL Expected: [facility] College Pending 00:00:00 [code = 58534] 07/11/2020, of Medicine Expires: 01/11/2021 Future Scheduled PTH,INTACT,WITH Ordered: [facility] ollege Test CALCIUM,PO4,CREAT 10/07/2019 of Medicin e [code = NOCPT] Future Scheduled TETANUS SHOT (ADULT) [employer] [facility] [employer] Test [code = TETANUS SHOT of Medi cine (ADULT)] Future Scheduled ZOSTER VACCINE (1 of [employer] [facility] Test 2) [code = ZOSTER of Medicin e VACCINE (1 of 2)] Future Scheduled OSTEOPOROSIS [facility] Kristine ege Test SCREENING [code = of Medicin e OSTEOPOROSIS SCREENING] Future Scheduled MEDICARE AWV [facility]ine e[facility] Test (Initial) [code = of Medicin e MEDICARE AWV (Initial)] Future Scheduled FLU VACCINE > [address] [facility] C ollege Test MONTHS [code = FLU of Medici ne VACCINE > 6 MONTHS] Future Scheduled FALL SCREEN [code = [facility] Test FALL SCREEN] of Medicine Future Scheduled BMI FOLLOW UP PLAN [facility] [employer] Test [code = BMI FOLLOW of Medici ne UP PLAN] Future Scheduled ZOSTER VACCINE (1 of [facility] Test 2) [code = ZOSTER of Medicin e VACCINE (1 of 2)] Future Scheduled OSTEOPOROSIS [facility] Kristine ege Test SCREENING [code = of Medicin e OSTEOPOROSIS SCREENING] Future Scheduled MEDICARE IPPE [facility] Col lege Test (WELCOME TO of Medicine MEDICARE) [code = MEDICARE IPPE (WELCOME TO MEDICARE)] Future Scheduled FLU VACCINE > [address] [facility] C ollege Test MONTHS [code = FLU of Medici ne VACCINE > 6 MONTHS] Future Scheduled FALL SCREEN [code = [facility] Test FALL SCREEN] of Medicine Future Scheduled TETANUS SHOT (ADULT) [facility] [employer] Test [code = TETANUS SHOT of Medi cine (ADULT)] Future Scheduled COVID-19 Vaccine (1) [employer] [facility] [employer] Test [code = COVID-19 of Medicine Vaccine (1)] Future Scheduled BMI FOLLOW UP PLAN [facility] [employer] Test [code = BMI FOLLOW of Medici ne UP PLAN] Future Scheduled ZOSTER VACCINE (1 of [employer] [facility] [employer] Test 2) [code = ZOSTER of Medicin e VACCINE (1 of 2)] Future Scheduled Screening for [facility] Col lege Test osteoporosis of Medicine (procedure) [code = [id number]] Future Scheduled MEDICARE IPPE [facility] Col lege Test (WELCOME TO of Medicine MEDICARE) [code = MEDICARE IPPE (WELCOME TO MEDICARE)] Future Scheduled FLU VACCINE > [address] [facility] C ollege Test MONTHS [code = FLU of Medici ne VACCINE > 6 MONTHS] Future Scheduled FALL SCREEN [code = [facility] Test FALL SCREEN] of Medicine Future Scheduled TETANUS SHOT (ADULT) [employer] [facility] [employer] Test [code = TETANUS SHOT of Medi cine (ADULT)] Encounters Start End Encounter Admission Attending Care Care Encounter Source Date/Time Date/Time Type Type Clinicians Facility Department ID 2020-11-29 Outpatient [facility] [id number] [facility] 10:44:36 [id number] [facility] [address] 2020-11-29 Outpatient [facility] [id number] [facility] 08:37:05 [id number] [facility] [address] 2020-11-26 Outpatient [facility] [id number] [facility] 17:47:[id number] [facility] [address] 2020-11-26 Outpatient [facility] [id number] Legacy 17:43:25 [id number] [facility] 2020-11-26 Outpatient [facility] [id number] Legacy 17:38:25 [id number] [facility] [address] 2020-11-26 Outpatient [facility] [id number] Legacy 17:36:45 [id number] [facility] 2020-11-26 Outpatient [facility] [id number] Legacy 17:34:20 [id number] [facility] [address] 2020-11-26 Outpatient [facility] [id number] Legacy 17:30:46 [id number] Replaced by [facility] 2020-11-26 Outpatient [facility] [id number] Legacy 17:29:46 [id number] Replaced by [facility] 2020-11-17 Inpatient ER [facility] [id number] [facility] 14:52:09 LILIANA 2021-05-03 2021-05-03 Office Link, [facility] 1.2.840.[id number] [facility] 10:00:00 11:16:44 Visit Adams E AMBULATOR 350.1.13.21 College Y 0.2.7.2.686 of [id number] Medi raimundo 300 e 2021-05-03 2021-05-03 [facility] [id number] [facility] 10:26:26 10:26:26 Colleg e of Medicin e 2021-05-03 2021-05-03 [facility] [id number] [facility] 10:13:26 10:13:26 Colleg e of Medicin e 2021-05-03 2021-05-[address] [facility] [id number] Univers 00:00:00 00:00:00 Zamzam HEALTH 350.1.13.10 it y of [place] 4.2.7.2.686 Kilo as BHARTI?BLEA [phone] Ga dical KNEY [address] [place] [address] OFFICE BUILDING 2021-04-29 2021-04-[address] [facility] 1.2.840.114 [id number] Univers 00:00:00 00:00:00 Johan A RISINGSUN 350.1.13.10 ity of [place] PROFESS[place] [phone] Ga dical NAL [facility] Branch BUILDING 2020-12-23 2020-12-23 Office Link, [facility] 1.2.840.[id number] [facility] 16:00:00 16:15:00 Visit Adams E AMBULATOR 350.1.13.21 College Y 0.2.7.2.686 of [id number] Medi raimundo 300 e 2020-05-04 2020-05-04 Office LINK, [facility] 1.2.840.[id number] [facility] [facility] 10:43:07 12:09:48 Visit ADAMS AMBULATOR 350.1.13.21 College Y 0.2.7.2.686 of [id number] [facility] 300 e 2020-04-29 2020-04-29 Telephone Beto [facility] 1.2.960.813 [id number] 00:00:00 00:00:00 Daniel [place] 350.1.13.10 [place] 4.2.7.2.686 Professio [id number] [address] 2020-04-29 2020-04-[address] [facility] 1.2.840.114 [id number] 00:00:00 00:00:00 Daniel Harris 350.1.13.10 [place] 4.2.7.2.686 Professio [phone] [address] 2020-04-25 2020-04-25 Urgent [facility] 1.2.028.258 [id number] 10:12:47 10:32:47 Care Ang [facility] 350.1.13.10 Care [place] 4.2.7.2.686 Professio [phone] [place] [address] Office Building One 2020-04-15 2020-04-15 Telephone Sarahi [facility] 1.2.840.114 [id number] 00:00:00 00:00:00 Wondiful A Health 350.1.13.10 [place] 4.2.7.2.686 Professio [phone] [place] [address] Office Building One 2020-03-07 2020-03-07 Patient Tyler [facility] 1.2.840.114 [id number] 00:00:00 00:00:00 Outreach Ethan PRIMARY 350.1.13.10 Hrebie CARE 4.2.7.2.686 PAVILLION [id number] [facility] 2020-01-16 2020-01-16 Telemedici Sarahi [facility] 1.2.840.114 [id number] 16:09:25 16:24:25 ne Visit W[facility] 350.1.13.10 [place] 4.2.7.2.686 Professio [phone] [place] [address] Office Building One 2020-01-12 2020-01-12 Orders Doctor LILLIANA 1.2.840.114 [id number] 00:00:00 00:00:00 Only Unassigned, MACKENZIE 350.1.13.10 [facility] 4.2.7.2.686 [id number] 009 2020-01-06 2020-01-06 Office Link, [facility] 1.2.840.114 [id number] 10:46:16 11:44:31 Visit Adams Kebede AMBULATOR 350.1.13.21 Y 0.2.7.2.686 [id number] 300 2020-01-06 2020-01-06 Office Link, [facility] 1.2.840.[id number] [place] [address] 10:46:16 11:44:31 Visit Adams Kebede AMBULATOR 350.1.13.21 College Y 0.2.7.2.686 of [id number] [facility] 300 e 2019-12-16 2019-12-16 Case Sarahi [facility] 1.2.840.114 [id number] 00:00:00 00:00:00 Management [facility] 350.1.13.10 [place] 4.2.7.2.686 Professio [phone] [place] [address] Office Building One 2019-12-12 2019-12-12 Regional Guide 1, Adc Lab [facility] 1.2.840.114 [id number] 09:36:54 09:51:54 Visit Covel 350.1.13.10 [place] 4.2.7.2.686 [place] [id number] [id number] 2019-12-12 2019-12-12 Telephone Sarahi [facility] 1.2.840.114 [id number] 00:00:00 00:00:00 Wondiful A Health 350.1.13.10 [place] 4.2.7.2.686 Professio [phone] [place] [address] Office Building One 2019-12-05 2019-12-05 Orders Doctor LILLIANA 1.2.840.114 [id number] 00:00:00 00:00:00 Only Unassigned, MACKENZIE 350.1.13.10 [facility] 4.2.7.2.686 [id number] 009 2019-11-14 2019-11-14 Beto Mcclain [facility] 1.2.840.114 [id number] 00:00:00 00:00:00 Management [facility] 350.1.13.10 [place] 4.2.7.2.686 Professio [phone] nal [facility] Office Building One 2019-11-13 2019-11-13 Beto Mcclain [facility] 1.2.840.114 [id number] 00:00:00 00:00:00 Management [facility] 350.1.13.10 [place] 4.2.7.2.686 Professio [phone] nal [facility] Office Building One 2019-11-08 2019-11-08 Office Saarhi [facility] 1.2.840.114 [id number] 09:44:58 11:00:23 Visit [facility] 350.1.13.10 [place] 4.2.7.2.686 Professio [phone] nal [facility] Office Building One 2019-10-07 2019-10-07 Office Bang [facility] 1.2.840.114 [id number] 08:45:50 10:08:26 Visit Adams Kebede AMBULATOR 350.1.13.21 Y 0.2.7.2.686 [id number] 300 2019-10-07 2019-10-07 Office Bang [facility] 1.2.840.[id number] [place] [address] 08:45:50 10:08:26 Visit Adams Kebede AMBULATOR 350.1.13.21 College Y 0.2.7.2.686 of [id number] [facility] raimundo 300 e 2019-08-29 2019-08-29 Urgent Lab, [facility] 1.2.840.114 [id number] 11:00:00 11:20:00 Care Fam Pob I Health 350.1.13.10 [place] 4.2.7.2.686 Professio [phone] [place] [address] Office Building One 2019-07-30 2019-07-30 Office Kedar [facility] Encounter / Legacy 00:00:00 00:00:00 Visit Renata [id number] Com natalee [id number] Health 2019-07-01 2019-07-01 Office Wilfredo, [facility] Encounter/ Legacy 00:00:00 00:00:00 Visit Mirella [id number] Com natalee Jono [id number] [facility] 2019-07-01 2019-07-01 Office Wilfredo, [facility] Encounter/ Legacy 00:00:00 00:00:00 Visit Mirella [id number] Com natalee Jono [id number] [facility] 2019-07-01 2019-07-01 Office Wilfredo, Mirella De La Cruz [facility] Encounter/ Legacy 00:00:00 00:00:00 Visit Shy Miller [id number] [facility] [id number] [facility] 2019-06-25 2019-06-25 Office Wilfredo, [facility] Encounter/ Legacy 00:00:00 00:00:00 Visit Mirella [id number] Com natalee Jono [id number] [facility] 2019-06-25 2019-06-25 Office Wilfredo, [facility] Encounter/ Legacy 00:00:00 00:00:00 Visit Mirella [id number] Com natalee Jono [id number] [facility] 2019-06-25 2019-06-25 Office Wilfredo, [facility] Encounter/ Legacy 00:00:00 00:00:00 Visit Mirella [id number] Com natalee Jono [id number] [facility] 2019-06-25 2019-06-25 Office Wilfredo, Mirella De La Cruz [facility] Encounter/ Legacy 00:00:00 00:00:00 Visit Renata Thacker [id number] [facility] [id number] [facility] Results Test Description Test Time Test Comments Results Result Comments Source POCT URINALYSIS DIPSTICK 2020-12-23 00:00:00 Test Item Value Reference Range Interpretation Comme nts COLOR UA (test code = 5778-6) Yellow YELLOW/STRAW CLARITY UA (test code = 08073-6) Clear CLEAR GLUCOSE UA (test code = 5792-7) Negative NEGATIVE BILIRUBIN UA (test code = 5770-3) Negative NEGATIVE KETONES UA (test code = 79176-4) Negative NEGATIVE SPECIFIC GRAVITY UA (test code [...] NEGATIVE REDUCING SUBSTANCES URINE (test code = 76389-2) NEGATI VE Lab Interpretation (test code = 16192-3) Abnormal [facility] [id number] 00:00:00 Test Item Value Reference Range Interpretation Comments COLOR UA (test code = 5778-6) Light Yellow YELLOW/STRAW CLARITY UA (test code = Cloudy CLEAR 31095-9) GLUCOSE UA (test code = Negative NEGATIVE 5792-7) BILIRUBIN UA (test code = Negative NEGATIVE 5770-3) KETONES UA (test code = Negative NEGATIVE 66986-7) SPECIFIC GRAVITY UA (test 1.005-1.035 code = [...] 5802-4) REDUCING SUBSTANCES URINE (test code = 56200-9) [facility] [id number] 11:28:02 Test Item Value Reference Range Interpretation Comments MAGNESIUM (test code = See_Comment Unless Otherwise 96606-0) Indicated, All Testing Performed At: [facility], [address] [place] [address] Laboratory Di laurent: Tani rogers M.D. CLIA Number [id number] [place] [id number] [Auto mated message] The sy stem which generated this result transmitted ref erence range: 1.6 - 2. 6 MG/DL. The reference r nanci was not used to int erpret this result as minor l/abnormal. [facility] [id number] 08:53:12 Test Item Value Reference Range Interpretation Comments GLUCOSE (test code = See_Comment H [Autom ated message] 2345-7) The system [employer] generated this result transmitted ref erence range: [...] L [Au tomated message] 2160-0) The system [employer] generated this result transmitted ref erence range: 0.60 - 1 .30 MG/DL. The refe rence range was not u sed to interpret this result as normal/abnor mal. EGFR AA (test code = See_Comment [Autom ated message] 64200-0) The system [employer] generated this result transmitted ref erence range: >60 ML/MIN/1.73. Th e reference range was not used to int erpret this result as normal/abnormal . EGFR (test code = See_Comment [Automate d message] 24456-1) The system [employer] generated this result transmitted ref erence range: >60 ML/MIN/1.73. Th e reference range was not used to int erpret this result as normal/abnormal . SODIUM (test code = See_Comment [Automa kendrick message] 2951-2) The system [employer] generated this result transmitted ref erence range: 133 - 14 6 MEQ/L. The refe rence range was not u sed to interpret this result as normal/abnor mal. POTASSIUM (test code = See_Comment [Aut omated message] 4173-3) The system [employer] generated this result transmitted ref erence range: 3.5 - 5. 4 MEQ/L. The refe rence range was not u sed to interpret this result as normal/abnor mal. CHLORIDE (test code = See_Comment [Auto mated message] 3775-0) The system [employer] generated this result transmitted ref erence range: 95 - 107 MEQ/L. The reference r nanci was not used to interpret this result as normal/abnor mal. CO2 (test code = See_Comment [Automated message] 1962-09) The system whic h generated this result transmitted ref erence range: 19 - 31 MEQ/L. The reference r nanci was not used to interpret this result as normal/abnor mal. CALCIUM (test code = See_Comment Unless 65040-0) Otherwise Indic ated, All Testing Per formed At: [facility], [address] [place] [address] Laboratory Dire ctor: Tani rogers M.D. CLIA Num jovanni [id number] Cap Accreditation [place]. 23541-04 [Auto mated message] The sy stem which generated this result transmit kendrick reference range : 8.5 - 10.5 MG/DL. The reference range was not used to int erpret this result as normal/abnormal . Lab Interpretation Abnormal (test code = 01379-8) [facility] [id number] 08:53:12 Test Item Value Reference Range Interpretation Comments URIC ACID (test code See_Comment Unless Otherwise = 8946609) Indicated, All Testing Performed At: [facility], [address] [place], [place] [address] Laboratory Dire ctor: Tani Vazquez M.D. CLIA Number [id number] Cap Accreditation [place] o. 55086-83 [Automated mess age] The system which ge nerated this result transmit kendrick reference range: 2.7 - 6. 1 MG/DL. The reference range was not used to interpret th is result as normal/abnormal . [facility] HospitalFL, FLUORO, NON-SPECIFIC, UP TO 1 [id number] 09:44:00Reason for exam:->cystoFINAL REPORT A fluoroscopic unit was utilized for a procedure performed in the operating room. No interpretation was requested. Please refer to the operative report regarding findings. Please refer to PACS for patient radiation dose information. Signed: JR Johnson Robert MDReport Verified Date/Time: 07/14/2019 09:44:15 Reading Location: [address] Neuro Reading Room BLOOD [id number] 11:00:00 Test Item Value Reference Range Interpretation Comments CULTURE (BEAKER) (test No growth in 5 days code = 1095) BLOOD [id number] 11:00:00 Test Item Value Reference Range Interpretation Comments CULTURE (BEAKER) (test No growth in 5 days code = 1095) URINE [id number] 11:07:00 Test Item Value Reference Range Interpretation Comments CULTURE (BEAKER) (test code = 1095) No growth ANG, NEPHROSTOMY, PERC, EXTERNAL [id number] 11:00:00Reason for exam:- >request left PCN for left obstructing stone, feversFINAL REPORT Procedure: Percutaneous nephrostomy catheter placement. History: Left ureteric calculus with obstruction, infection. High School Vice Principal: Bradford Martin M.D. Materials Planning Manager: Not Konstantin mckeon Modality: Ultrasound and fluoroscopy. DOSE REDUCTION: The [...] sequential dilatation of the tract, an 8.5 Gambian nephrostomy catheter was placed, pigtail locked in [...] bladder. Impression:Successful ultrasound and fluoroscopic guided 8.5 Gambian nephrostomy catheter placement leftkidney via a posterior inferior calyx as described above. Further management dictated by the clinical scenario. The nephrostomy catheter(s) should be exchanged at the latest in three months. Thank you for the opportunity to assist in the care of your patient. Signed: Bradford Martineport Verified Date/Time: 07/10/2019 11:00:12 Reading Location: [place] [id number] Angio Body Reading Room Electronically signed by: Kwesi PETERSON 07/10/2019 11:00 AM BASIC METABOLIC [id number] 07:33:00 Test Item Value Reference Range Interpretation [...] 1092) DATA TO CALCULA TE ESTIMATED GFR. Wire Preparation Worker ID - MONIE [id number] 07:25:00 Test Item Value Reference Range Interpretation Comments MAGNESIUM (BEAKER) (test code = 2.2 mg/dL 1.6-2.6 627) Wire Preparation Worker ID - MONIE CHEPATIC FUNCTION [id number] 07:25:00 Test Item Value Reference Range Interpretation [...] (test code = 43 U/L 6-55 347) Wire Preparation Worker ID - MONIE CCBC W/PLT COUNT & AUTO [id number] 06:54:00 Test Item Value Reference Range Interpretation [...] (BEAKER) (test code = 2801) BASIC METABOLIC [id number] 05:38:00 Test Item Value Reference Range Interpretation [...] 1092) DATA TO CALCULA TE ESTIMATED GFR. Wire Preparation Worker ID - [id number] 05:24:00 Test Item Value Reference Range Interpretation Comments MAGNESIUM (BEAKER) (test code = 1.8 mg/dL 1.6-2.6 627) Wire Preparation Worker ID - LAHEPATIC FUNCTION [id number] 05:24:00 Test Item Value Reference Range Interpretation [...] (test code = 36 U/L 6-55 347) Wire Preparation Worker ID - LACBC W/PLT COUNT & AUTO [id number] 04:34:00 Test Item Value Reference Range Interpretation [...] (BEAKER) (test code = 2801) LACTIC ACID, [id number] 20:25:00 Test Item Value Reference Range Interpretation Comments LACTATE BLOOD VENOUS (2) (BEAKER) 0.69 mmol/L 0.50-2.20 (test code = 2872) Wire Preparation Worker ID - NTPRAD, CHEST, 1 VIEW, NON [id number] 16:24:00Reason for exam:->feverShould this be performed at the bedside?->YesFINAL REPORT CLINICAL HISTORY: fever TECHNIQUE: 1 view of the chest. COMPARISON: None IMPRESSION: There is possible retrocardiac left lower lobe consolidation, for which clinical correlation for pneumonia is requested. There is blunting of the left costophrenic angle. The heartis not enlarged. Signed: Rich Valentine MDReport Verified Date/Time: 07/08/2019 16:24:52 Reading Loca tion: [facility] B1 C013V Neuro Reading Room HEMOGLOBIN [id number] 13:56:00 Test Item Value Reference Range Interpretation Comments HEMOGLOBIN A1C (BEAKER) (test code = 6.1 % 4.3-6.1 368) URINALYSIS W/ REFLEX URINE [id number] 13:15:00 Test Item Value Reference Range Interpretation [...] = 516) SOURCE(BEAKER) (test code = 2795) Wire Preparation Worker ID - [auto]Wire Preparation Worker ID - techRESPIRATORY PANEL [id number] 12:14:00 Test Item Value Reference Range Interpretation Comments HUMAN METAPNEUMOVIRUS Not detected Not detected, (BEAKER) (test code = 2683) Equivocal RHINOVIRUS (BEAKER) (test Not detected Not detected, code = 5354) Equivocal INFLUENZA A (BEAKER) (test Not detected Not detected, code = 3145) Equivocal INFLUENZA A (NO SUBTYPE) (test code = 3602) INFLUENZA A SUBTYPE H1 (BEAKER) (test code = 2686) INFLUENZA A SUBTYPE H3 (BEAKER) (test code = 5547) INFLUENZA A SUBTYPE H1-2009 (BEAKER) (test code [...] decisions. This sample was tested at the [facility] Molecular Diagnostics Laboratory using the Concert Window FilmArray Respiratory Panel. It is FDA cleared and has been verified and approved by the [facility] Molecular Diagnostics Laboratory for clinical use on nasopharyngeal swab specimens.The performance of the FilmArrayRP has not been established in individuals who received influenza vaccine. Recent administration ofa nasal influenza vaccine may cause false positive results for Influenza A and/orInfluenza B.SARS-COV2/RT-PCR ([facility])2019-07-08 11:26:00 Test Item Value Reference Range Interpretation Comments SARS-COV2/RT-PCR (test Not Detected Not Detected, Negative code = 7879469) SARS-COV-2 PERFORMING LAB [facility] (test code = 0420060) Negative results do not preclude SARS-CoV-2 infection [...] of the Act.Fact Sheet for Healthcare Pro viders:https://www.Unomy.yoone/Documents/Xpert%20Xpress%20SARS%20CoV-2/Fact%20Sh eets/302-3802%42OSLZ-RVV-3%20HEALTHCARE%20PROVIDERS%20FACT%20SHEET.pdfFact Sheet for Healthcare Patients:https://www.Wikirin/Documents/Xpert%20Xpress%20SARS%20CoV-2/Fact%20Sheets/302-3801%20SARS-COV -2%20PATIENT%20FACT%20SHEET.pdfPerforming Laboratory:[facility], [place] [address]TJJTY METABOLIC [id number] 10:06:00 Test Item Value Reference Range Interpretation [...] 1092) DATA TO CALCULA TE ESTIMATED GFR. Wire Preparation Worker ID - [id number] 10:05:00 Test Item Value Reference Range Interpretation Comments MAGNESIUM (BEAKER) (test code = 2.0 mg/dL 1.6-2.6 627) Wire Preparation Worker ID - NTPHEPATIC FUNCTION [id number] 10:05:00 Test Item Value Reference Range Interpretation [...] (test code = 30 U/L 6-55 347) Wire Preparation Worker ID - [id number] 09:53:00 Test Item Value Reference Range Interpretation [...] is2.5-3.5 for patients wiht mechanical heart valves.PROTHROMBIN TIME/[id number] 09:51:00 Test Item Value Reference Range Interpretation [...] for patients wiht mechanical heart valves.LACTIC ACID, [id number] 09:50:00 Test Item Value Reference Range Interpretation Comments LACTATE BLOOD VENOUS (2) (BEAKER) 2.87 mmol/L 0.50-2.20 H (test code = 2872) Wire Preparation Worker ID - NTPCBC W/PLT COUNT & AUTO [id number] 09:41:00 Test Item Value Reference Range Interpretation [...] % 0-1 PERCENT (BEAKER) (test code = 8523)
[2021-05-05 07:57] LABS: Arterial Blood Carboxyhemoglob 0.8 % (0-1.5); Blood Gas Oxyhemoglobin 95.8 % (94-97); Blood O2 Saturation 97.7 % (92-98.5)
[2021-05-05 08:05] LABS: Absolute Lymphocytes (CBC) 6.9 K/uL (0.7-4.9); Hematocrit 41.5 % (36.0-45.0); Lymphocytes % 49.8 % (15.3-44.8); MPV 8.8 fL (7.6-11.3); RBC Red Blood Cell Count 4.93 M/uL (3.86-4.86)
[2021-05-05 08:28] LABS: ALT/SGPT 22 U/L (12-78); AST/SGOT 20 U/L (15-37); Albumin 3.5 g/dL (3.4-5.0); Alkaline Phosphatase 97 U/L (45-117); BUN Blood Urea Nitrogen 10 mg/dL (7-18); Bicarbonate 18 mmol/L (21-32); Bilirubin Direct < 0.1 mg/dL (0-0.2); Bilirubin Total 0.5 mg/dL (0.2-1.0); Glucose Level 270 mg/dL (74-106); Magnesium 2.5 mg/dL (1.8-2.4); NT PRO-BNP 503 pg/mL (<450); Potassium 3.6 mmol/L (3.5-5.1); Protein, Total 7.5 g/dL (6.4-8.2); Sodium Level 137 mmol/L (136-145)
--- NOTE | 2021-05-05 08:37 | RAD REPORT ---
EXAM DESCRIPTION: RAD - Chest Single View - 05/05/2021 8:10 am CLINICAL HISTORY: DYSPNEA Chest pain. COMPARISON: Chest Single View dated 03/14/2021; Chest Single View dated 02/23/2021; Chest Single View dated 12/26/2017; CHEST PA AND LAT 2 VIEW dated 11/10/2009 FINDINGS: Portable technique limits examination quality. Moderate bilateral pulmonary opacities are present probably indicating pneumonia or pulmonary edema. The heart is normal in size. No displaced fractures.Aortic atherosclerosis.
[2021-05-05] MEDS ORDERED: AZITHROMYCIN 500 MG INJ IVPB ONE (09:35)
[2021-05-05] MEDS ORDERED: CEFTRIAXONE 1000 MG/VIAL ONE (09:35)
[2021-05-05] MEDS ORDERED: NA CHLORIDE 0.9% 100 ML IV ONE (09:36)
[2021-05-05] MEDS ORDERED: FUROSEMIDE 40 MG/4 ML VIAL ONE (09:36)
[2021-05-05] MEDS ORDERED: NA CHLORIDE 0.9% 250 ML ONE (09:36)
[2021-05-05 09:49] LABS: SARS-COV-2 RT PCR NEGATIVE (NEGATIVE)
--- NOTE | 2021-05-05 10:55 | RAD REPORT ---
EXAM DESCRIPTION: CT - Chest For Pe Angio - 05/05/2021 10:40 am CLINICAL HISTORY: Chest pain. DYSPNEA COMPARISON: No comparisons TECHNIQUE: CT angiogram of the pulmonary arteries was performed with MIP. All CT scans are performed using dose optimization technique as appropriate and may include automated exposure control or mA/KV adjustment according to patient size. FINDINGS: No evidence of pulmonary thromboembolism. No acute aortic finding demonstrated. Moderate bilateral ground-glass opacities are present with atelectasis in both posterior lung bases. Trace bilateral pleural effusion, greater on the left. No concerning bony finding. IMPRESSION: No evidence of pulmonary thromboembolism. Moderate bilateral pulmonary opacities with trace pleural effusion and atelectasis in both lung bases . CHF/volume overload would be favored.
--- NOTE | 2021-05-05 11:08 | EDPHYS ---
Physician Documentation [facility] Name: Erika Jacobson Age: 86 yrs Sex: Female : 1935 Arrival Date: 05/05/2021 Time: 07:39 Bed 20 Private MD: ED Physician Bryson Lafleur HPI: 05/05 07:53 This 86 yrs old Female presents to ER via Wheelchair with complaints of rn Shortness Of Breath. 07:53 The patient has shortness of breath at rest, with light activity. Onset: The rn symptoms/episode began/occurred 4 day(s) ago. Duration: The symptoms are continuous. The patient's shortness of breath is aggravated by exertion, light activity, supine position, is alleviated by elevating head, rest, sitting up. Associated signs and symptoms: Pertinent positives: non-productive cough, Pertinent negatives: fever, hemoptysis, loss of consciousness. Severity of symptoms: At their worst the symptoms were moderate in the emergency department the symptoms are unchanged. The patient has experienced a previous episode. The patient has not recently seen a physician. Pt and son report sob for 4 days, worse this morning about 45 min ago, admitted last for CHF and pulmonary edema and son says appears to be similar problem today. Taking lasix once a day. No fever. + non-productive cough. No trauma. No hemoptysis. No hx of dvt/PE. Denies chest pain.. Historical: - Allergies: 07:40 No Known Allergies; ll1 - PMHx: 07:40 Asthma; CVA; Hyperlipidemia; Hypertension; ll1 - PSHx: 07:40 choleycestectomy; kidney stones; ll1 - Immunization history:: Adult Immunizations up to date. - Social history:: Smoking status: Patient denies any tobacco usage or history of. - Family history:: not pertinent. - Hospitalizations: : No recent hospitalization is reported. ROS: 07:53 Constitutional: Negative for fever, chills, and weight loss, Eyes: Negative for injury, rn pain, redness, and discharge, Neck: Negative for injury, pain, and swelling, Cardiovascular: + lower extremity edema Respiratory: + cough and sob Abdomen/GI: Negative for abdominal pain, nausea, vomiting, diarrhea, and constipation, Back: Negative for injury and pain, : Negative for injury, bleeding, discharge, and swelling, MS/Extremity: + leg swelling Skin: Negative for injury, rash, and discoloration, Neuro: Negative for headache, weakness, numbness, tingling, and seizure. Exam: 07:53 Constitutional: This is a well developed, well nourished patient who is awake, alert, rn moderate respiratory distress Head/Face: Normocephalic, atraumatic. Eyes: Periorbital areas with no swelling, redness, or edema. Cardiovascular: Regular rate and rhythm. No pulse deficits. Respiratory: + moderate tachypnea with crackles bilaterally and retractions Abdomen/GI: soft, non-tender, non-distended Skin: Warm, dry, no cyanosis MS/ Extremity: Pulses equal, no cyanosis. Neurovascular intact. Full, normal range of motion. Equal circumference. 1+ pitting edema bilateral lower ext. Neuro: Awake and alert, GCS 15 08:13 ECG was reviewed by the Attending Physician. rn Vital Signs: 07:50 BP 188 / 67; Pulse 115; Resp 30; Temp 97.0; Pulse Ox 52% on R/A; ll1 08:00 BP 137 / 60; Pulse 91; Resp 20; Pulse Ox 99% ; bp 08:51 BP 125 / 53; Pulse 80; Resp 20; rn 09:05 Pulse Ox 97% ; rn 09:30 BP 133 / 69; Pulse 90; Resp 20; Pulse Ox 100% ; bp 11:00 BP 127 / 60; Pulse 91; Resp 14; Pulse Ox 100% ; bp MDM: 07:40 Patient medically screened. rn 08:11 ED course: Pt looks much better on bipap, RR down, BP down, oxygen 98%. Code sepsis rn activated at triage but seems more secondary to pulmonary edema, will hold off on fluids given 50% O2 sat and volume overload. . 08:13 Data interpreted: Arterial blood gas: pH: 7.309, PO2: 122, PCO2: 33.1, HCO3: 16.1, rn Oxygen saturation: 97.7, Oxygen: 60% on BiPAP, Interpretation: hyperventilation. 11:00 Differential diagnosis: CHF exacerbation, Myocardial Infarction pneumonia, Pneumothorax rn pulmonary edema, Pulmonary Embolism. Data reviewed: vital signs, nurses notes, lab test result(s), EKG, radiologic studies, plain films, and as a result, I will admit patient. Counseling: I had a detailed discussion with the patient and/or guardian regarding: the historical points, exam findings, and any diagnostic results supporting the discharge/admit diagnosis, lab results, radiology results, the need for further work-up and treatment in the hospital. Response to treatment: the patient's symptoms have markedly improved after treatment, and as a result, I will admit patient. Admission orders: after a detailed discussion of the patient's condition and case, the admit orders are written by me. ED course: CT neg for PE, radiology favors more pulmonary edema than infection, will admit to hospitalist service.. 05/05 07:42 Order name: BMP rn 05/05 07:42 Order name: Blood Culture Adult (2) rn 05/05 07:42 Order name: CBC with Diff rn 05/05 07:42 Order name: Hepatic Function rn 05/05 07:42 Order name: Magnesium; Complete Time: 08:49 05/05 07:42 Order name: NT PRO-BNP; Complete Time: 08:49 05/05 07:42 Order name: PT-INR; Complete Time: 08:49 rn 05/05 07:42 Order name: Ptt, Activated; Complete Time: 08:49 rn 05/05 07:42 Order name: ABG; Complete Time: 08:49 rn 05/05 07:42 Order name: Basic Metabolic Panel; Complete Time: 08:49 EDWA 05/05 07:42 Order name: Blood Culture EDWA 05/05 07:42 Order name: CBC with Automated Diff; Complete Time: 08:49 EDWA 05/05 07:42 Order name: Liver (Hepatic) Function; Complete Time: 08:49 [facility] 05/05 07:46 Order name: Troponin High Sensitivity; Complete Time: 08:49 rn 05/05 07:47 Order name: Procalcitonin; Complete Time: 08:49 rn 05/05 07:47 Order name: Lactate; Complete Time: 08:49 rn 05/05 07:47 Order name: COVID-19/FLU A+B (Document "Date of Onset" if Symptomatic); Complete Time: rn 10:12 05/05 11:40 Order name: Lactate Sepsis 2 HR Follow-up; Complete Time: 19:07 EDWA 05/05 13:43 Order name: ABG Arterial Blood Gas [facility] 05/05 13:43 Order name: ABG Arterial Blood Gas EDMS 05/05 13:43 Order name: CBC with Automated Diff EDMS 05/05 13:43 Order name: CBC with Automated Diff EDMS 05/05 13:43 Order name: Comprehensive Metabolic Panel EDMS 05/05 13:43 Order name: Comprehensive Metabolic Panel EDMS 05/05 13:43 Order name: Lipid Profile EDMS 05/05 13:43 Order name: Lipid Profile EDMS 05/05 13:43 Order name: Magnesium EDMS 05/05 13:43 Order name: Magnesium EDMS 05/05 13:43 Order name: NT PRO-BNP EDMS 05/05 13:43 Order name: NT PRO-BNP EDMS 05/05 07:42 Order name: XRAY CXR (1 view); Complete Time: 08:49 rn 05/05 07:42 Order name: Call RT; Complete Time: 11:03 rn 05/05 07:42 Order name: BIPAP rn 05/05 07:42 Order name: EKG; Complete Time: 07:43 rn 05/05 07:42 Order name: Cardiac monitoring; Complete Time: 08:24 rn 05/05 07:42 Order name: EKG - Nurse/Tech; Complete Time: 08:24 rn 05/05 07:42 Order name: IV Saline Lock; Complete Time: 08:24 rn 05/05 07:42 Order name: Labs collected and sent; Complete Time: 08:24 rn 05/05 07:42 Order name: O2 Per Protocol; Complete Time: 08:24 rn 05/05 07:42 Order name: O2 Sat Monitoring; Complete Time: 08:24 rn 05/05 08:50 Order name: CT Chest For PE Angio; Complete Time: 19:07 rn 05/05 13:43 Order name: CONS Physician Consult EDWA 05/05 13:43 Order name: Heart Healthy EDMS 05/05 13:43 Order name: Phosphorus EDMS 05/05 13:43 Order name: Phosphorus EDMS Administered Medications: 08:30 Drug: Lasix (furosemide) 40 mg Route: IVP; Site: right antecubital; bp 10:04 Follow up: Response: No adverse reaction bp 09:30 Drug: Rocephin (cefTRIAXone) 1 grams Route: IV; Rate: calculated rate; Site: right bp antecubital; 09:45 Drug: Zithromax (azithromycin) 500 mg Route: IVPB; Infused Over: 1 hrs; Site: right bp antecubital; Disposition: 11:00 Critical Care:. rn Disposition Summary: 05/05/21 11:07 Hospitalization Ordered Hospitalization Status: Inpatient Admission rn Provider: Chantale Garcia rn Location: Telemetry/MedSur (Inpatient) rn Condition: Stable rn Problem: new rn Symptoms: have improved rn Bed/Room Type: Standard rn Room Assignment: 204(05/05/21 14:12) bd Diagnosis - Acute pulmonary edema rn - Hypoxemia rn - Dyspnea, unspecified rn - Pleural effusion, not elsewhere classified rn Forms: - Medication Reconciliation Form rn - SBAR form utilization review rn time excluding procedures: 11:00 Critical care time: Bedside Care: 30 minutes, Family Intervention: 5 minutes. Total rn time: 35 minutes Signatures: Dispatcher [employer] EDKym Alarcon Roman, MD MD rn Peltier, Brian, RN Blaine Nielsen, RN RN ll1 Corrections: (The following items were deleted from the chart) 14:12 11:07 rn bd
--- NOTE | 2021-05-05 11:08 | ER ---
Nurse's Notes [facility] Name: Erika Jacobson Age: 86 yrs Sex: Female : 1935 Arrival Date: 05/05/2021 Time: 07:39 Bed 20 Private MD: Diagnosis: Acute pulmonary edema;Hypoxemia;Dyspnea, unspecified;Pleural effusion, not elsewhere classified Presentation: 05/05 07:50 Chief complaint: Patient states: SOB began today. No known fever. Slight diarrhea ll1 yesterday. Mosotho speaking. Coronavirus screen: Vaccine status: Client denies travel out of the [place] in the last 14 days. diarrhea, difficulty breathing, shortness of breath, Client presents with at least one sign or symptom that may indicate coronavirus-19. Standard/surgical mask placed on the client. Ebola Screen: Patient denies travel to an Ebola-affected area in the 21 days before illness onset. Initial Sepsis Screen: Does the patient meet any 2 criteria? RR > 20 per min. HR > 90 bpm. Yes Does the patient have a suspected source of infection? Yes: Productive cough/pneumonia. Risk Assessment: Do you want to hurt yourself or someone else? Patient reports no desire to harm self or others. Onset of symptoms was May 05, 2021. 07:50 Method Of Arrival: Wheelchair ll1 07:50 Acuity: ISHAN 2 ll1 Triage Assessment: 07:42 General: Appears distressed, Behavior is cooperative, appropriate for age. Pain: Denies ll1 pain. Respiratory: Reports shortness of breath Onset: The symptoms/episode began/occurred this morning, the patient has severe shortness of breath. Historical: - Allergies: 07:40 No Known Allergies; ll1 - PMHx: 07:40 Asthma; CVA; Hyperlipidemia; Hypertension; ll1 - PSHx: 07:40 choleycestectomy; kidney stones; ll1 - Immunization history:: Adult Immunizations up to date. - Social history:: Smoking status: Patient denies any tobacco usage or history of. - Family history:: not pertinent. - Hospitalizations: : No recent hospitalization is reported. Screenin:45 Abuse screen: Denies threats or abuse. Denies injuries from another. Nutritional bp screening: No deficits noted. Tuberculosis screening: No symptoms or risk factors identified. Fall Risk None identified. Assessment: 07:45 Reassessment: SEE TRIAGE NOTE. Cardiovascular: Rhythm is sinus rhythm. bp 09:00 Respiratory: Airway is patent Respiratory effort is even, labored, Respiratory pattern bp is symmetrical, Breath sounds with crackles bilaterally. 11:03 Reassessment: No changes from previously documented assessment. Patient and/or family bp updated on plan of care and expected duration. Pain level reassessed. PT RETURNED FROM CT. 14:46 Reassessment: attempted to call report, was told that nurse was at lunch, asked to lr4 speak with charge for report. Vital Signs: 07:50 BP 188 / 67; Pulse 115; Resp 30; Temp 97.0; Pulse Ox 52% on R/A; ll1 08:00 BP 137 / 60; Pulse 91; Resp 20; Pulse Ox 99% ; bp 08:51 BP 125 / 53; Pulse 80; Resp 20; rn 09:05 Pulse Ox 97% ; rn 09:30 BP 133 / 69; Pulse 90; Resp 20; Pulse Ox 100% ; bp 11:00 BP 127 / 60; Pulse 91; Resp 14; Pulse Ox 100% ; bp ED Course: 07:39 Patient arrived in ED. rn 07:39 Arm band placed on Patient placed in an exam room, on a stretcher. ll1 07:40 Bryson Lafleur MD is Attending Physician. rn 07:45 Patient has correct armband on for positive identification. Bed in low position. Call bp light in reach. Side rails up X2. Adult w/ patient. 07:51 Triage completed. ll1 08:00 Inserted saline lock: 20 gauge in right antecubital area, using aseptic technique. bp Blood collected. 08:08 X-ray completed. Portable x-ray completed in exam room. Patient tolerated procedure mh1 well. 08:10 XRAY CXR (1 view) In Process Unspecified. EDMS 08:23 Rogelio Menendez, VIVIENNE is Primary Nurse. bp 09:30 [place] cath inserted, using sterile technique, 16 Fr., by potato chip cooker machine, balloon inflated, to bp gravity drainage. 10:42 CT Chest For PE Angio In Process Unspecified. EDMS 11:07 Chantale Garcia MD is Hospitalizing Provider. rn 15:02 No provider procedures requiring assistance completed. Patient admitted, IV remains in lr4 place. Administered Medications: 08:30 Drug: Lasix (furosemide) 40 mg Route: IVP; Site: right antecubital; bp 10:04 Follow up: Response: No adverse reaction bp 09:30 Drug: Rocephin (cefTRIAXone) 1 grams Route: IV; Rate: calculated rate; Site: right bp antecubital; 09:45 Drug: Zithromax (azithromycin) 500 mg Route: IVPB; Infused Over: 1 hrs; Site: right bp antecubital; Outcome: 11:07 Decision to Hospitalize by Provider. rn 15:02 Admitted to Med/surg accompanied by samira, family with patient, via stretcher, room 204, lr4 with oxygen, Report called to YOMAIRA 15:02 Condition: stable 15:02 Instructed on the need for admit. 15:37 Patient left the ED. ss Signatures: Dispatcher [employer] EDMS Mallory Ward [facility] Bryson Lafleur MD MD rn Smirch, Shelby, RN RN ss Rogelio Menendez RN RN bp Lewis, Lynsay, RN RN 1 Gladys Tee RN RN lr4
[2021-05-05] MEDS ORDERED: ONDANSETRON 4 MG/2 ML VIAL IV PRN (13:37)
[2021-05-05] MEDS ORDERED: ACETAMINOPHEN 500 MG TAB PO PRN (13:37)
[2021-05-05] MEDS: IPRATROPIUM BROM 0.5MG/2.5ML NEB SCH ×2 (14:00→20:00)
[2021-05-05] MEDS: ALBUTEROL 2.5 MG/3 ML NEB SOL NEB SCH ×2 (14:00→20:00)
[2021-05-05] MEDS: METHYLPREDNISOLONE 125 MG INJ IV SCH (17:20)
[2021-05-05] MEDS: Levofloxacin 750mg IV 750 MG/150 ML BAG IV SCH (17:21)
[2021-05-05 18:51] VITALS: BMI 22.3
[2021-05-06] MEDS: METHYLPREDNISOLONE 125 MG INJ IV SCH ×4 (00:07→18:21)
[2021-05-06] MEDS: ALBUTEROL 2.5 MG/3 ML NEB SOL NEB SCH ×4 (01:05→19:45)
[2021-05-06] MEDS: IPRATROPIUM BROM 0.5MG/2.5ML NEB SCH ×4 (01:05→19:45)
[2021-05-06 05:38] LABS: Hematocrit 35.4 % (36.0-45.0); Lymphocytes % 10.5 % (15.3-44.8); MPV 8.6 fL (7.6-11.3); RBC Red Blood Cell Count 4.32 M/uL (3.86-4.86)
[2021-05-06 06:00] LABS: Albumin 3.1 g/dL (3.4-5.0); Bilirubin Total 0.4 mg/dL (0.2-1.0); Magnesium 2.3 mg/dL (1.8-2.4); Potassium 3.6 mmol/L (3.5-5.1); Protein, Total 6.8 g/dL (6.4-8.2)
[2021-05-06 06:22] LABS: Arterial Blood Carboxyhemoglob 0.9 % (0-1.5); Blood O2 Saturation 97.1 % (92-98.5)
--- NOTE | 2021-05-06 07:45 | EKG ---
Test Date: 2021-05-05 Test Time: 09:00:31 Bookkeeper Assistant: BP MEASUREMENT RESULTS: Intervals: Rate: 79 KS: 178 QRSD: 138 QT: 422 QTc: 483 [place]: P: 63 KS: 178 QRS: -67 T: 125 INTERPRETIVE STATEMENTS: Normal sinus rhythm Left axis deviation Left bundle branch block Abnormal ECG Compared to ECG 03/14/2021 04:32:08 Sinus arrhythmia no longer present Electronically Signed On 05-06-21 07:41:37 CDT by Marcel Dean
[2021-05-06] MEDS ORDERED: POTASSIUM CL SA 10 MEQ TAB PO ONE (09:00)
[2021-05-06] MEDS: ENOXAPARIN 40 MG/0.4 ML SQ SCH (09:27)
--- NOTE | 2021-05-06 09:41 | P.HP ---
Certification for Inpatient Patient admitted to: Inpatient With expected LOS: >2 Midnights Patient will require the following post-hospital care: None Practitioner: I am a practitioner with admitting privileges, knowledge of patient current condition, hospital course, and medical plan of care. Services: Services provided to patient in accordance with Admission requirements found in Title 42 Section 412.3 of the Code of Federal Regulations Patient History Date of Service: 05/05/21 Reason for admission: Dyspnea on exertion; History of Present Illness: Patient is a 86-year-old female who presented to the hospital with dyspnea upon exertion. Pt had a COPD exacerbation. Pt was started on nebs, steroids, and O2. Pt was started on diuretics. Pt was admitted for further evaluation. Allergies No Known Allergies Allergy (Verified 09/03/18 08:32) Home Medications: Atorvastatin Calcium [Lipitor] 40 mg PO BEDTIME #30 tab 02/25/21 Furosemide [Lasix*] 40 mg PO DAILY #30 tab 02/25/21 Potassium Chloride 20 meq PO DAILY #30 tablet.er 02/25/21 carvediloL [Coreg*] 6.25 mg PO BID #60 tab 02/25/21 Aspirin [Aspirin EC 81 MG] 81 mg PO DAILY 03/14/21 Losartan Potassium 50 mg PO BID 03/14/21 - Past Medical/Surgical History Diabetic: No -: Hypertension -: Dyslipidemia -: CVA -: kidney stones -: Asthma -: CHF -: Cholecystectomy - Family History Father Family History: Reviewed- Non-Contributory - Social History Smoking Status: Former smoker Alcohol use: No CD- Drugs: No Caffeine use: Yes Review of Systems 10-point ROS is otherwise unremarkable Physical Examination - Vital Signs Temperature: 99.1 F Blood Pressure: 150/54 Pulse: 79 Respirations: 18 Pulse Ox (%): 95 - Physical Exam General: Alert, In no apparent distress, Oriented x3 HEENT: Atraumatic, PERRLA, Mucous membr. moist/pink, EOMI, Sclerae nonicteric Neck: Supple, 2+ carotid pulse no bruit, No LAD, Without JVD or thyroid abnormality Respiratory: Diminished, Expiratory wheezes Cardiovascular: Regular rate/rhythm, Normal S1 S2, No murmurs Gastrointestinal: Normal bowel sounds, Soft and benign, Non-distended, No tenderness Musculoskeletal: No clubbing, No swelling, No tenderness Integumentary: No rashes Neurological: Normal gait, Normal speech, Normal strength at 5/5 x4 extr, Normal tone, Sensation intact, Cranial nerves 3-12 intact, Normal affect Lymphatics: No axilla or inguinal lymphadenopathy Assessment & Plan - Problems (Diagnosis) (1) Acute asthma exacerbation Current Visit: No Status: Acute (2) Acute on chronic diastolic heart failure Current Visit: No Status: Acute (3) CVA (cerebral vascular accident) Onset Date: 12/27/17 Current Visit: No Status: Acute Qualifiers: CVA mechanism: stenosis Precerebral and cerebral artery: vertebral artery Laterality of affected vessel: right Qualified Code(s): I63.211 - Cerebral infarction due to unspecified occlusion or stenosis of right vertebral artery (4) Dyslipidemia Onset Date: 12/27/17 Current Visit: No Status: Acute (5) Hypertension Onset Date: 12/27/17 Current Visit: No Status: Acute Qualifiers: Hypertension type: essential hypertension (6) LBBB (left bundle branch block) Current Visit: No Status: Acute (7) NSTEMI (non-ST elevated myocardial infarction) Current Visit: No Status: Acute (8) Obesity Onset Date: 01/01/18 Current Visit: No Status: Acute Qualifiers: Obesity type: due to excess calories Obesity classification: adult class 1 (BMI 30 - 34.9) Serious obesity comorbidity presence: without serious comorbidity Body mass index: BMI 34.0-34.9 Qualified Code(s): E66.09 - Other obesity due to excess calories; Z68.34 - Body mass index (BMI) 34.0-34.9, adult - Plan Plan: 1. Continue with albuterol and Atrovent nebs 2. Continue with IV steroids 3. Outpatient pulmonary function testing 4. Pulmonary consultation 5. Room air O2 sats 6. Repeat chest x-ray in the morning 7. GI and DVT prophylaxis Discharge Plan: Home Plan to discharge in: Greater than 2 days - Advance Directives Does patient have a Living Will: No Does patient have a Durable POA for Healthcare: No - Code Status/Comfort Care Code Status Assessed: Yes Code Status: Full Code Critical Care: No Time Spent Managing PTS Care (In Minutes): 45
--- NOTE | 2021-05-06 09:51 | P.PN ---
Date of Service: 05/06/21 Subjective Pt is doing well. Check room air oxygen saturations. Family wanting home health as well. Review of Systems 10-point ROS is otherwise unremarkable Physical Examination - Vital Signs Reviewed - Physical Exam General: Alert, In no apparent distress, Oriented x3 Respiratory: Diminished, Expiratory wheezes Cardiovascular: Regular rate/rhythm, Normal S1 S2, No murmurs Gastrointestinal: Normal bowel sounds, Soft and benign, Non-distended, No tenderness Musculoskeletal: No clubbing, No swelling, No tenderness Neurological: Normal gait, Normal speech, Normal strength at 5/5 x4 extr, Normal tone, Sensation intact, Cranial nerves 3-12 intact, Normal affect Assessment & Plan - Problems (Diagnosis) (1) Acute asthma exacerbation Current Visit: No Status: Acute (2) Acute on chronic diastolic heart failure Current Visit: No Status: Acute (3) CVA (cerebral vascular accident) Onset Date: 12/27/17 Current Visit: No Status: Acute Qualifiers: CVA mechanism: stenosis Precerebral and cerebral artery: vertebral artery Laterality of affected vessel: right Qualified Code(s): I63.211 - Cerebral infarction due to unspecified occlusion or stenosis of right vertebral artery (4) Dyslipidemia Onset Date: 12/27/17 Current Visit: No Status: Acute (5) Hypertension Onset Date: 12/27/17 Current Visit: No Status: Acute Qualifiers: Hypertension type: essential hypertension (6) LBBB (left bundle branch block) Current Visit: No Status: Acute (7) NSTEMI (non-ST elevated myocardial infarction) Current Visit: No Status: Acute (8) Obesity Onset Date: 01/01/18 Current Visit: No Status: Acute Qualifiers: Obesity type: due to excess calories Obesity classification: adult class 1 (BMI 30 - 34.9) Serious obesity comorbidity presence: without serious comorbidity Body mass index: BMI 34.0-34.9 Qualified Code(s): E66.09 - Other obesity due to excess calories; Z68.34 - Body mass index (BMI) 34.0-34.9, adult - Plan Plan: 1. Continue with albuterol and Atrovent nebs 2. Continue with IV steroids 3. Outpatient pulmonary function testing 4. Pulmonary consultation 5. Room air O2 sats 6. Repeat chest x-ray in the morning 7. GI and DVT prophylaxis Discharge Plan: Home Plan to discharge in: Greater than 2 days - Advance Directives Does patient have a Living Will: No Does patient have a Durable POA for Healthcare: No - Code Status/Comfort Care Code Status Assessed: Yes Code Status: Full Code Critical Care: No Time Spent Managing PTS Care (In Minutes): 45
--- NOTE | 2021-05-06 12:41 | P.CNS ---
Date of Consult: 05/06/21 Reason for Consult: COPD exacerbation Chief Complaint: Dyspnea on exertion; History of Present Illness: Patient is 86 years of age admitted with shortness of breath Luxembourgish-speaking only Allergies No Known Allergies Allergy (Verified 09/03/18 08:32) Home Medications: Atorvastatin Calcium [Lipitor] 40 mg PO BEDTIME #30 tab 02/25/21 Furosemide [Lasix*] 40 mg PO DAILY #30 tab 02/25/21 Potassium Chloride 20 meq PO DAILY #30 tablet.er 02/25/21 carvediloL [Coreg*] 6.25 mg PO BID #60 tab 02/25/21 Aspirin [Aspirin EC 81 MG] 81 mg PO DAILY 03/14/21 Losartan Potassium 50 mg PO BID 03/14/21 - Past Medical/Surgical History Diabetic: No -: Hypertension -: Dyslipidemia -: CVA -: kidney stones -: Asthma -: CHF -: Cholecystectomy - Family History Father Family History: Reviewed- Non-Contributory - Social History Alcohol use: No CD- Drugs: No Caffeine use: Yes Review of Systems is unable to be obtained Physical Examination Temp Pulse Resp BP Pulse Ox 99.1 F 79 18 150/54 H 95 05/06/21 09:43 05/06/21 09:43 05/06/21 09:43 05/06/21 09:43 05/06/21 09:43 General: Alert, In no apparent distress, Oriented x3 Neck: No Thyromegaly Cardiovascular: No edema, Regular rate/rhythm - Problems (1) Shortness of breath Current Visit: Yes Status: Acute Plan: Patient is 86 years of age and admitted with shortness of breath chemistries reviewed no evidence of underlying sepsis minimal basilar changes BNP very elevated most likely she has underlying diastolic dysfunction oxygenation satisfactory patient takes a diuretic at home add low-dose spironolactone improved significantly echocardiogram pending plan for discharge follow-up with me in 2 weeks unable to contact her daughter
[2021-05-06] MEDS: FUROSEMIDE 40 MG/4 ML VIAL IV SCH (18:21)
[2021-05-06] MEDS: ATORVASTATIN 40 MG TAB PO SCH (22:17)
[2021-05-06] MEDS: LOSARTAN POTASSIUM 50 MG TABLET PO SCH (22:18)
[2021-05-06] MEDS: carvediloL 6.25 MG TAB PO SCH (22:18)
[2021-05-07] MEDS: METHYLPREDNISOLONE 125 MG INJ IV SCH ×4 (00:25→17:19)
[2021-05-07] MEDS: IPRATROPIUM BROM 0.5MG/2.5ML NEB SCH ×4 (01:45→20:05)
[2021-05-07] MEDS: ALBUTEROL 2.5 MG/3 ML NEB SOL NEB SCH ×4 (01:45→20:05)
[2021-05-07 06:40] LABS: Potassium 4.1 mmol/L (3.5-5.1)
[2021-05-07] MEDS ORDERED: HOME MED 1 EA UNK (Potassium Chloride [Potassium Chloride] 20 MEQ Tablet.Er) PO SCH (09:00)
[2021-05-07] MEDS: POTASSIUM CL SA 10 MEQ TAB PO SCH (09:37)
[2021-05-07] MEDS: LOSARTAN POTASSIUM 50 MG TABLET PO SCH ×2 (09:37→21:42)
[2021-05-07] MEDS: carvediloL 6.25 MG TAB PO SCH ×2 (09:37→21:42)
[2021-05-07] MEDS: ASPIRIN EC 81 MG TAB PO SCH (09:37)
[2021-05-07] MEDS: FUROSEMIDE 40 MG/4 ML VIAL IV SCH ×2 (09:37→17:19)
[2021-05-07] MEDS: ENOXAPARIN 40 MG/0.4 ML SQ SCH (09:38)
--- NOTE | 2021-05-07 12:42 | ECHO ---
HEIGHT: 5 ft 4 in WEIGHT: 130 lb 0 oz DATE OF STUDY: 05/07/[address]: Chantale Garcia MD 2-DIMENSIONAL: YES M.MODE: YES DOPPLER: YES COLOR FLOW: YES TDS: NO PORTABLE: NO DEFINITY: NO BUBBLE STUDY: NO DIAGNOSIS: CONGESTIVE HEART FAILURE CARDIAC HISTORY: CATHERIZATION: SURGERY: PROSTHETIC VALVE: PACEMAKER: MEASUREMENTS (cm) DIASTOLIC (NORMALS) SYSTOLIC (NORMALS) IVSd 1.0 (0.6-1.2) LA Diam 3.3 (1.9-4.0) LVEF 45-50% LVIDd 4.8 (3.5-5.7) LVIDs 3.7 (2.0-3.5) %FS 22% LVPWd 1.0 (0.6-1.2) Ao Diam 2.0 (2.0-3.7) 2 DIMENSIONAL ASSESSMENT: RIGHT ATRIUM: NORMAL LEFT ATRIUM: NORMAL RIGHT VENTRICLE: NORMAL LEFT VENTRICLE: DEPRESSED FUNCTION TRICUSPID VALVE: NORMAL MITRAL VALVE: MILD MITRAL REGURGITATION PULMONIC VALVE: NORMAL AORTIC VALVE: NORMAL PERICARDIAL EFFUSION: NONE AORTIC ROOT: NORMAL LEFT VENTRICULAR WALL MOTION: DISTAL ANTEROSEPTAL/APICAL HYPOKINESIS. DOPPLER/COLOR FLOW: MILD MITRAL REGURGITATION. COMMENTS: MILDLY DEPRESSED LEFT VENTRICULAR EJECTION FRACTION 45-50%. MILD ANTEROSEPTAL/APICAL HYPOKINESIS. MILD MITRAL REGURGITATION. MODERATE DIASTOLIC DYSFUNCTION. TECHNOLOGIST: SONIA CAPONE
[2021-05-07] MEDS: Levofloxacin 750mg IV 750 MG/150 ML BAG IV SCH (14:35)
[2021-05-07] MEDS: ATORVASTATIN 40 MG TAB PO SCH (21:42)
[2021-05-08] MEDS: METHYLPREDNISOLONE 125 MG INJ IV SCH ×2 (00:59→06:07)
[2021-05-08] MEDS: ALBUTEROL 2.5 MG/3 ML NEB SOL NEB SCH ×2 (02:00→07:59)
[2021-05-08] MEDS: IPRATROPIUM BROM 0.5MG/2.5ML NEB SCH ×2 (02:00→07:59)
[2021-05-08 08:39] VITALS: O2SAT 97
[2021-05-08] MEDS: ASPIRIN EC 81 MG TAB PO SCH (09:00)
[2021-05-08] MEDS: ENOXAPARIN 40 MG/0.4 ML SQ SCH (09:00)
[2021-05-08] MEDS: POTASSIUM CL SA 10 MEQ TAB PO SCH (09:00)
--- NOTE | 2021-05-08 09:22 | P.DS ---
Discharge Date: 05/08/21 Disposition: ROUTINE DISCHARGE Discharge Condition: GOOD Reason for Admission: Dyspnea on exertion; - Problems (1) Acute asthma exacerbation Current Visit: No Status: Acute (2) Acute on chronic diastolic heart failure Current Visit: No Status: Acute (3) CVA (cerebral vascular accident) Onset Date: 12/27/17 Current Visit: No Status: Acute Qualifiers: CVA mechanism: stenosis Precerebral and cerebral artery: vertebral artery Laterality of affected vessel: right Qualified Code(s): I63.211 - Cerebral inf arction due to unspecified occlusion or stenosis of right vertebral artery (4) Dyslipidemia Onset Date: 12/27/17 Current Visit: No Status: Acute (5) Hypertension Onset Date: 12/27/17 Current Visit: No Status: Acute Qualifiers: Hypertension type: essential hypertension (6) LBBB (left bundle branch block) Current Visit: No Status: Acute (7) NSTEMI (non-ST elevated myocardial infarction) Current Visit: No Status: Acute (8) Obesity Onset Date: 01/01/18 Current Visit: No Status: Acute Qualifiers: Obesity type: due to excess calories Obesity classification: adult class 1 (BMI 30 - 34.9) Serious obesity comorbidity presence: without serious comorbidity Body mass index: BMI 34.0-34.9 Qualified Code(s): E66.09 - Other obesity due to excess calories; Z68.34 - Body mass index (BMI) 34.0-34.9, adult Brief History of Present Illness: Patient is a 86-year-old female who presented to the hospital with dyspnea upon exertion. Pt had a COPD exacerbation. Pt was started on nebs, steroids, and O2. Pt was started on diuretics. Pt was admitted for further evaluation. Vital Signs/Physical Exam: Temp Pulse Resp BP Pulse Ox 97.4 F 73 17 156/70 H 93 05/08/21 00:00 05/08/21 00:00 05/08/21 00:00 05/08/21 00:00 05/08/21 00:00 General: Alert, In no apparent distress, Oriented x3 Laboratory Data at Discharge: WBC 9.40 K/uL (4.3-10.9) D 05/06/21 05:05 Hgb 11.5 g/dL (12.0-15.0) L 05/06/21 05:05 Hct 35.4 % (36.0-45.0) L 05/06/21 05:05 Plt Count 309 K/uL (152-406) 05/06/21 05:05 PT 11.0 SECONDS (9.5-12.5) 05/05/21 07:45 INR 1.00 05/05/21 07:45 APTT 36.0 SECONDS (24.3-36.9) 05/05/21 07:45 Sodium 140 mmol/L (136-145) 05/07/21 05:57 Potassium 4.1 mmol/L (3.5-5.1) 05/07/21 05:57 BUN 29 mg/dL (7-18) H 05/07/21 05:57 Creatinine 1.00 mg/dL (0.55-1.3) 05/07/21 05:57 Glucose 324 mg/dL (74-106) H 05/07/21 05:57 Phosphorus 3.0 mg/dL (2.5-4.9) 05/06/21 05:05 Magnesium 2.3 mg/dL (1.8-2.4) 05/06/21 05:05 Total Bilirubin 0.4 mg/dL (0.2-1.0) 05/06/21 05:05 AST 14 U/L (15-37) L 05/06/21 05:05 ALT 19 U/L (12-78) 05/06/21 05:05 Alkaline Phosphatase 81 U/L (45-117) 05/06/21 05:05 Triglycerides 62 mg/dL (<150) 05/06/21 05:05 Cholesterol 140 mg/dL (<200) 05/06/21 05:05 HDL Cholesterol 38 mg/dL (40-60) L 05/06/21 05:05 Cholesterol/HDL Ratio 3.68 05/06/21 05:05 Home Medications: Atorvastatin Calcium [Lipitor] 40 mg PO BEDTIME #30 tab 02/25/21 Furosemide [Lasix*] 40 mg PO DAILY #30 tab 02/25/21 Potassium Chloride 20 meq PO DAILY #30 tablet.er 02/25/21 carvediloL [Coreg*] 6.25 mg PO BID #60 tab 02/25/21 Aspirin [Aspirin EC 81 MG] 81 mg PO DAILY 03/14/21 Losartan Potassium 50 mg PO BID 03/14/21 Albuterol Neb [Proventil 0.083% Neb Soln] 2.5 mg NEB [id number] #60 amp 05/08/21 Cefdinir [Omnicef] 300 mg PO BID #14 capsule 05/08/21 Nebulizer Accessories [Aeroneb Go] 1 each MC DAILY #1 each 05/08/21 Nebulizer [Aeroneb Go Nebulizer] 1 each MC DAILY #1 each 05/08/21 predniSONE [Prednisone] 20 mg PO BID #11 tablet 05/08/21 New Medications: Nebulizer Accessories [Aeroneb Go] 1 each MC DAILY #1 each Nebulizer [Aeroneb Go Nebulizer] 1 each MC DAILY #1 each Cefdinir [Omnicef] 300 mg PO BID #14 capsule predniSONE [Prednisone] 20 mg PO BID #11 tablet Albuterol Neb [Proventil 0.083% Neb Soln] 2.5 mg NEB [id number] #60 amp Physician Discharge Instructions: OK TO DC IV AND DC HOME FOLLOW-UP WITH PCP IN 1-2 WEEKS CALL ME AT [phone] IF ANY QUESTIONS REGARDING HOSPITAL STAY RETURN TO THE ER IF SYMPTOMS WORSENS Diet: AHA Activity: Fall precautions Followup: NONE,NONE [Primary Care Provider] -
[2021-05-08 09:28] VITALS: TEMP 98.1
[2021-05-08] MEDS: LOSARTAN POTASSIUM 50 MG TABLET PO SCH (10:25)
[2021-05-08] MEDS: carvediloL 6.25 MG TAB PO SCH (10:25)
[2021-05-08] MEDS: FUROSEMIDE 40 MG/4 ML VIAL IV SCH (10:26)
[2021-05-08 10:27] VITALS: BP 155/70
== END 2021-05-08 10:40 | disposition home health service (06) | DRG 280 ==
LOC: ER 07:29 → ERHOLD 13:38 → 2ND 14:44
PROVIDERS: ADMIT Hospitalist; ATTEND Hospitalist
DX: I11.0 Hypertensive heart disease with heart failure (principal); I21.4 Non-ST elevation (NSTEMI) myocardial infarction; I50.33 Acute on chronic diastolic (congestive) heart failure; I63.211 Cerebral infarction due to unspecified occlusion or stenosis of right vertebral artery; J45.901 Unspecified asthma with (acute) exacerbation; I44.7 Left bundle-branch block, unspecified; J44.9 Chronic obstructive pulmonary disease, unspecified; E78.5 Hyperlipidemia, unspecified; E66.09 Other obesity due to excess calories; R09.02 Hypoxemia; Z86.73 Personal history of transient ischemic attack (TIA), and cerebral infarction without residual deficits; Z90.49 Acquired absence of other specified parts of digestive tract; Z79.82 Long term (current) use of aspirin; Z79.899 Other long term (current) drug therapy; Z87.891 Personal history of nicotine dependence; Z68.34 Body mass index [BMI] 34.0-34.9, adult; Z79.52 Long term (current) use of systemic steroids; Z20.822 Contact with and (suspected) exposure to COVID-19
CPT/HCPCS: 0240U; 36415; 51702; 71045; 71275; 80048; 80053; 80061; 80076; 82805; 83605; 83735; 83880; 84100; 84145; 84484; 85025; 85610; 85730; 87040; 87205; 93005; 93306; 94640; 94660; 94760; 96374; 96375; 99285; J0456; J1650; J1940; J2930; J7050; Q9967

== ENCOUNTER 2021-06-28 16:58 | Emergency (ER) | payer OTHER ==
--- OUTSIDE RECORDS SUMMARY | 2021-06-28 17:03 | XMS REPORT | Continuity of Care Document ---
:1935 Author Organization [facility] t Address [address] [place] [address] Care Team Providers Name Role Phone Carmelita MURGUIA Primary Care Physician GABRIELA LI Attending Clinician Unavailable Ebrahim ADMINISTRATIVE SUPPORT TECHNICIAN Attending Clinician Only, Db Test Attending Clinician Unavailable Rambo ADMINISTRATIVE SUPPORT TECHNICIAN Attending Clinician RAMBO Attending Clinician Unavailable JOEL NAYAK Attending Clinician Unavailable Doctor Unassigned, Name Attending Clinician Unavailable Larissa Germain MD Attending Clinician Aneesme ADMINISTRATIVE SUPPORT TECHNICIAN Attending Clinician Randal MURGUIA Attending Clinician Sarahi MURGUIA A Attending Clinician Larissa GERMAIN Attending Clinician Unavailable Beto MURGUIA Attending Clinician Provider, Urgent Care Attending Clinician Unavailable Herbie Scott DO Attending Clinician 1, Lab Attending Clinician Unavailable Lab, Fam Pob I Attending Clinician Unavailable Kedar Attending Clinician Unavailable Jono Villalobos Attending Clinician [phone] Angela Attending Clinician Unavailable GABRIELA LI Admitting Clinician Unavailable DASH HARTMANND Admitting Clinician Unavailable Payers Payer Name Policy Type Policy Number Effective Date Expiration Date Michael alvarez Sliding Fee - Cat P [id number] 2019 2020 1 00:00:00 00:00:00 AARP/MEDICARE [id number] 2019 COMPLETE 00:00:00 COVID19 HRSA [id number] Problems Condition Condition Condition Status Onset Resolution Last Treating Co mments Source Name Details Category Date Date Treatment Clinician Date Venous Venous Disease Active 2020-02 Univers reflux reflux 2- ity of 00:00: [place] [facility] Edema of Edema of Disease Active 2020-02 Unive rs both legs both legs 2 ity of 00:00: [place] [facility] Decreased Decreased Disease Active 2020-02 Uni vers appetite appetite 2- ity of 00:00: [place] [facility] Asthma in Asthma in Disease Active Uni vers adult, adult, 8-29 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: [place]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 00 Me dical , , Branch uncomplica uncomplica kendrick kendrick 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 9-30 it y of hypothyroi [place]othyroi [place] dis[place] dism 00 [facility] Memory Memory Disease Active Univers impairment impairment 9-25 it y of 00:00: Medical Branch Hair loss Hair loss Disease Active Uni vers 9-25 ity of 00:00: 00 [facility] Branch COVID-19 COVID-19 Disease Active Unive rs virus virus 7-20 it[place] of infection [place] 00:[place] [facility] [place] GERD GERD Disease Active Univers (gastroeso (gastroeso 7-20 it y of phageal phageal 00:00: [place] reflux reflux 00 Medical disease) disease) Branch Neuropathy Neuropathy Disease Active U nivers of both of both 7-20 ity of feet feet 00:00: [place] [facility] Abdominal Abdominal Disease Active [facility] Sepsis Sepsis Disease [facility] Hypertensi Hypertensi Disease Active [facility]25 [facility] 00:[facility]: Medical 00 Center Ureteropel Ureteropel Disease Active [facility] bessie bessie 5-25 [facility] junction junction 00:00: Medica l (UPJ) (UPJ) 00 [place] obstructio obstructio n, left n, left Bilateral Bilateral Disease Active 2018-02 Uni vers foot pain foot pain 1-26 ity of 00:00: [place] [address] Medical Branch Kidney Kidney Disease Active 2017-02 Univers stone stone 0-15 ity of 00:00: [place] [address] Medical Branch Abnormal Abnormal Disease Active 2017-02 Overview: Un briana liver liver 0-15 Formatt[place] ity of ultrasound ultrasound 00:00: g of this [place] note Medical might be Branch different from the original. Likely hepatic steatosis with focal areas of fatty sparing Weakness Weakness Disease Active Unive rs 4-25 ity of 00:00: [address] Branch 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 0-05 it y of 2 diabetes 2 diabetes 00:00[place] mellitus mellitus 00 [facility] Branch Essential Essential Disease Active 2016-02 Uni vers hypertensi hypertensi 0-02 it y of on on 00:00: [place] [address] Medical Branch HLD HLD Disease Active 2016-02 Univers (hyperlipi (hyperlipi 0-02 it y of demia) demia) 00:00: [place] [address] Medical Branch History of History of Disease Active 2016-02 U nivers chest pain chest pain 0-02 it y of 00:00: [address] Branch Palpitatio Palpitatio Disease Active 2016-02 U nivers ns ns 0-02 ity of 00:00: [place] [address] Medical Branch No known No known Disease [facility] [facility] active active College problems problems of Medicin e Osteoporos Osteoporos Disease Active U nivers is is ity of [facility] Abnormal Abnormal Disease Active Unive rs EKG EKG ity of [facility] Allergies, Adverse Reactions, Alerts Allergy Allergy Status Severity Reaction(s) Onset Inactive Treating Comm ents Source Name Type Date Date Clinician NO KNOWN Drug Active Univers ALLERGIE Class ity of [facility] NO KNOWN Allergy Active [facility] ALL[facility] Social History Social Habit Start Date Stop Date Quantity Comments Source History SDOH [facility] Alcohol Std Medical [facility] r Drinks History SDOH [facility] Alcohol Binge Medical Marilyn ter History SDOH [facility] Alcohol Comment Medical C enter Exposure to 2021-05-29 2021-06-08 Not sure [facility] SARS-CoV-2 00:00:00 09:11:00 [place] [facility] (event) Branch Alcohol intake 2019-07-12 2019-07-[address] [facility] es 00:00:00 00:00:00 non-drinker of Medical Ce nter alcohol (finding) History SDOH 2019-07-10 2019-07-[address] [facility] Alcohol Frequency 00:00:00 00:00:00 [facility] Center Tobacco use and 2019-07-09 2019-07-[address] [facility] [address] [facility] kes exposure 00:00:00 00:00:00 [facility] Center Sex Assigned At [address] [facility] 00:00:00 00:00:00 [facility] Center Smoking Status Start Date Stop Date Source Never smoker [facility] Medical Branch Medications Ordered Filled Start Stop Current Ordering Indication Dosage Frequency Signature Comments Components Source Medication Medication Date Date Medication? Clinician (SIG) Name Name losartan 50 Yes [id number] 50mg Take 1 Univers mg tablet 3-22 tablet by ity o f 00:00: mouth 2 [place] (two) Medical times Branch daily. losartan 50 Yes [id number] 50mg Take 1 Univers mg tablet 3-22 tablet by ity o f 00:00: mouth 2 [place] (two) Medical times Branch daily. losartan 50 Yes [id number] 50mg Take 1 Univers mg tablet 3-22 tablet by ity o f 00:00: mouth 2 [place] (two) Medical times Branch daily. losartan 50 Yes [id number] 50mg Take 1 Univers mg tablet 3-22 tablet by ity o f 00:00: mouth 2 [place] (two) Medical times Branch daily. Magnesium Yes Take by [facility] 100 MG CAPS 3-21 mouth. Colleg e 10:29: Medicin e Melatonin Yes Take by [facility] 10 MG TABS 3-21 mouth. College 10:29: 08 Medicin e furosemide Yes 40mg Take 1 Unive rs 40 mg 3-17 tablet by ity of tablet 00:00: mouth 00 daily. Medical Branch furosemide Yes 40mg Take 1 Unive rs 40 mg 3-17 tablet by ity of tablet 00:00: mouth [place] daily. Medical Branch furosemide Yes 40mg Take 1 Unive rs 40 mg 3-17 tablet by ity of tablet 00:00: mouth [place] daily. Medical Branch furosemide Yes 40mg Take 1 Unive rs 40 mg 3-17 tablet by ity of tablet 00:00: mouth [place] daily. Medical Branch furosemide Yes 40mg Take 1 Unive rs 40 mg 3-17 tablet by ity of tablet 00:00: mouth [place] daily. Medical Branch furosemide Yes 40mg Take 1 Unive rs 40 mg 3-17 tablet by ity of tablet 00:00: mouth [place] daily. Medical Branch ATORVASTATI 2020-02 Yes [id number] 40mg TAKE 1 Univers N 40 mg 2-13 TABLET BY ity of tablet 00:00: MOUTH AT [place] [facility]-02 Yes [id number] 40mg TAKE 1 Univers N 40 mg 2-13 TABLET BY ity of tablet 00:00: MOUTH AT [place] [facility] 2020-02 Yes [id number] 40mg TAKE 1 Univers N 40 mg 2-13 TABLET BY ity of tablet 00:00: MOUTH AT [place] [facility] 2020-02 Yes [id number] 40mg TAKE 1 Univers N 40 mg 2-13 TABLET BY ity of tablet 00:00: MOUTH AT [place] [facility] 2020-02 Yes [id number] 40mg TAKE 1 Univers N 40 mg 2-13 TABLET BY ity of tablet 00:00: MOUTH AT [place] [facility] ATORVASTA 2020-02 Yes [id number] 40mg TAKE 1 Univers N 40 mg 2-13 TABLET BY ity of tablet 00:00: MOUTH AT [address] azelastine 2020-02 Yes [id number] 1{spray Use 1 Univers 137 mcg 2-02 } [place] in ity of (0.1 %) 00:00: each [place] nasal spray 00 nostril 2 Med ical (two) Branch times daily. Use in each nostril as directed fluticasone 2020-02 Yes [id number] 2{puff} Inhale 2 Univers propionate 2-02 Puffs 2 ity of (FLOVENT 00:00: (two) [place] HFA) 44 00 times Medical mcg/actuati daily. Branch on inhaler Rinse mouth after each use. mirtazapine 2020-02 Yes [id number] 7.5mg Take 1 Univers 7.5 mg 2-02 tablet by ity of tablet 00:00: mouth at [place] 00 bedtime. Medical Branch azelastine 2020-02 Yes [id number] 1{spray Use 1 Univers 137 mcg 2-02 } [place] in ity of (0.1 %) 00:00: each [place] nasal spray 00 nostril 2 Med ical (two) Branch times daily. Use in each nostril as directed fluticasone 2020-02 Yes [id number] 2{puff} Inhale 2 Univers propionate 2-02 Puffs 2 ity of (FLOVENT 00:00: (two) [place] HFA) 44 00 times Medical mcg/actuati daily. Branch on inhaler Rinse mouth after each use. mirtazapine 2020-02 Yes [id number] 7.5mg Take 1 Univers 7.5 mg 2-02 tablet by ity of tablet 00:00: mouth at [place] 00 bedtime. Medical Branch azelastine 2020-02 Yes [id number] 1{spray Use 1 Univers 137 mcg 2-02 } [place] in ity of (0.1 %) 00:00: each [place] nasal spray 00 nostril 2 Med ical (two) Branch times daily. Use in each nostril as directed fluticasone 2020-02 Yes [id number] 2{puff} Inhale 2 Univers propionate 2-02 Puffs 2 ity of (FLOVENT 00:00: (two) [place] HFA) 44 00 times Medical mcg/actuati daily. Branch on inhaler Rinse mouth after each use. mirtazapine 2020-02 Yes [id number] 7.5mg Take 1 Univers 7.5 mg 2-02 tablet by ity of tablet 00:00: mouth at [place] 00 bedtime. Medical Branch azelastine 2020-02 Yes [id number] 1{spray Use 1 Univers 137 mcg 2-02 } [place] in ity of (0.1 %) 00:00: each [place] nasal spray 00 nostril 2 Med ical (two) Branch times daily. Use in each nostril as directed fluticasone 2020-02 Yes [id number] 2{puff} Inhale 2 Univers propionate 2-02 Puffs 2 ity of (FLOVENT 00:00: (two) [place] HFA) 44 00 times Medical mcg/actuati daily. Branch on inhaler Rinse mouth after each use. mirtazapine 2020-02 Yes [id number] 7.5mg Take 1 Univers 7.5 mg 2-02 tablet by ity of tablet 00:00: mouth at [place] 00 bedtime. Medical Branch azelastine 2020-02 Yes [id number] 1{spray Use 1 Univers 137 mcg 2-02 } [place] in ity of (0.1 %) 00:00: each [place] nasal spray 00 nostril 2 Med ical (two) Branch times daily. Use in each nostril as directed fluticasone 2020-02 Yes [id number] 2{puff} Inhale 2 Univers propionate 2-02 Puffs 2 ity of (FLOVENT 00:00: (two) [place] HFA) 44 00 times Medical mcg/actuati daily. Branch on inhaler Rinse mouth after each use. mirtazapine 2020-02 Yes [id number] 7.5mg Take 1 Univers 7.5 mg 2-02 tablet by ity of tablet 00:00: mouth at [place] 00 bedtime. Medical Branch azelastine 2020-02 Yes [id number] 1{spray Use 1 Univers 137 mcg 2-02 } [place] in ity of (0.1 %) 00:00: each [place] nasal spray 00 nostril 2 Med ical (two) Branch times daily. Use in each nostril as directed fluticasone 2020-02 Yes [id number] 2{puff} Inhale 2 Univers propionate 2-02 Puffs 2 ity of (FLOVENT 00:00: (two) [place] HFA) 44 00 times Medical mcg/actuati daily. Branch on inhaler Rinse mouth after each use. mirtazapine 2020-02 Yes [id number] 7.5mg Take 1 Univers 7.5 mg 2-02 tablet by ity of tablet 00:00: mouth at [place] 00 bedtime. Medical Branch Magnesium 2020-02 Yes Take by [facility] 100 MG CAPS 1-10 mouth. Shanda larissa 15:46: of 22 Medicin e Melatonin 2020-02 Yes Take by [facility] 10 MG TABS 1-10 mouth. [place] 15:46: of Medicin e oxybutynin 2020-02 Yes 10mg Take 1 [facility] (DITROPAN 1-10 Tablet by [facility] ge XL) 10 MG 00:00: mouth of CR tablet 00 daily. Medicin e oxybutynin 2020-02 Yes 10mg Take 1 [facility] (DITROPAN 1-10 Tablet by [facility] ge XL) 10 MG 00:00: mouth of CR tablet 00 daily. Medicin e albuterol Yes [id number] 2{puff} Inhale 2 Univers (PROAIR 9-03 Puffs ity of HFA) 90 00:00: every 6 [place] mcg/actuati 00 (six) Medical on inhaler hours as Branc h needed for Wheezing or Shortness of Breath. albuterol Yes [id number] 2{puff} Inhale 2 Univers (PROAIR 9-03 Puffs ity of HFA) 90 00:00: every 6 [place] mcg/actuati 00 (six) Medical on inhaler hours as Branc h needed for Wheezing or Shortness of Breath. albuterol Yes [id number] 2{puff} Inhale 2 Univers (PROAIR 9-03 Puffs ity of HFA) 90 00:00: every 6 [place] mcg/actuati 00 (six) Medical on inhaler hours as Branc h needed for Wheezing or Shortness of Breath. albuterol Yes [id number] 2{puff} Inhale 2 Univers (PROAIR 9-03 Puffs ity of HFA) 90 00:00: every 6 [place] mcg/actuati 00 (six) Medical on inhaler hours as Branc h needed for Wheezing or Shortness of Breath. albuterol Yes [id number] 2{puff} Inhale 2 Univers (PROAIR 9-03 Puffs ity of HFA) 90 00:00: every 6 [place] mcg/actuati 00 (six) Medical on inhaler hours as Branc h needed for Wheezing or Shortness of Breath. albuterol Yes [id number] 2{puff} Inhale 2 Univers (PROAIR 9-03 Puffs ity of HFA) 90 00:00: every 6 [place] mcg/actuati 00 (six) Medical on inhaler hours as Branc h needed for Wheezing or Shortness of Breath. hydroCHLORO 0 Yes [id number] 25mg Take 1 Univers thiazide 25 6-07 tablet by ity of mg tablet 00:00: mouth [place] 00 daily. Medical Branch amLODIPine 2020- Yes [id number] 2.5mg Take 1 Univers 2.5 mg 6-07 tablet by ity of tablet 00:00: mouth [place] 00 daily. Medical Branch hydroCHLORO 2020-0 Yes [id number] 25mg Take 1 Univers thiazide 25 6-07 tablet by ity of mg tablet 00:00: mouth [place] 00 daily. Medical Branch amLODIPine Yes [id number] 2.5mg Take 1 Univers 2.5 mg 6-07 tablet by ity of tablet 00:00: mouth [place] 00 daily. Medical Branch hydroCHLORO Yes [id number] 25mg Take 1 Univers thiazide 25 6-07 tablet by ity of mg tablet 00:00: mouth [place] 00 daily. Medical Branch amLODIPine Yes [id number] 2.5mg Take 1 Univers 2.5 mg 6-07 tablet by ity of tablet 00:00: mouth [place] 00 daily. Medical Branch hydroCHLORO 2020- Yes [id number] 25mg Take 1 Univers thiazide 25 6-07 tablet by ity of mg tablet 00:00: mouth [place] 00 daily. Medical Branch amLODIPine 2020-0 Yes [id number] 2.5mg Take 1 Univers 2.5 mg 6-07 tablet by ity of tablet 00:00: mouth [place] 00 daily. Medical Branch hydroCHLORO 2020-0 Yes [id number] 25mg Take 1 Univers thiazide 25 6-07 tablet by ity of mg tablet 00:00: mouth [place] 00 daily. Medical Branch amLODIPine 2020-0 Yes [id number] 2.5mg Take 1 Univers 2.5 mg 6-07 tablet by ity of tablet 00:00: mouth [place] 00 daily. Medical Branch hydroCHLORO 2020-0 Yes [id number] 25mg Take 1 Univers thiazide 25 6-07 tablet by ity of mg tablet 00:00: mouth [place] 00 daily. Medical Branch amLODIPine Yes [id number] 2.5mg Take 1 Univers 2.5 mg 6-07 tablet by ity of tablet 00:00: mouth [place] 00 daily. Medical Branch hydrochloro 2020-0 2020- No 25mg Take 25 mg Art thiazide 3-22 03-22 by mouth Colleg e (HYDRODIURI 16:58: 00:00 daily. of L) 25 MG 25 :00 Medicin tablet e Magnesium Yes Take by [facility] 100 MG CAPS 3-22 mouth. Colleg e 15:58: of 46 Medicin e Melatonin Yes Take by [facility] 10 MG TABS 3-22 mouth. [place] 15:58: of 46 Medicin e hydrochloro Yes 25mg Take 1 [facility] thiazide 3-22 Tablet by Colleg e (HYDRODIURI 00:00: mouth of L) 25 MG 00 daily. Medicin tablet e Potassium Yes Take 2 [facility] Citrate 3-22 tablets PO Colleg e (UROCIT-K 00:00: TID of 10) 10 MEQ 00 Medicin (1080 MG) e TBCR hydrochloro 0 Yes 25mg Take 1 [facility] thiazide 3-22 Tablet by Colleg e (HYDRODIURI 00:00: mouth of L) 25 MG 00 daily. Medicin tablet e Potassium Yes Take 2 [facility] Citrate 3-22 tablets PO Colleg e (UROCIT-K 00:00: TID of 10) 10 MEQ 00 Medicin (1080 MG) e TBCR hydrochloro 0 Yes 25mg Take 1 [facility] thiazide 3-22 Tablet by Colleg e (HYDRODIURI 00:00: mouth of L) 25 MG 00 daily. Medicin tablet e Potassium Yes Take 2 [facility] Citrate 3-22 tablets PO Colleg e (UROCIT-K 00:00: TID of 10) 10 MEQ 00 Medicin (1080 MG) e TBCR oxybutynin 0 Yes 10mg Take 1 [facility] (DITROPAN 3-22 Tablet by Colle ge XL) 10 MG 00:00: mouth of CR tablet 00 daily. Medicin e oxybutynin 2020-0 2020- No 10mg Take 1 [facility] (DITROPAN 3-22 11-10 Tablet by Kristine ege XL) 10 MG 00:00: 00:00 mouth of CR tablet 00 :00 daily. Medicin e hydrochloro 2019-02 Yes 25mg Take 25 mg [facility] thiazide 1-23 by mouth [place] (HYDRODIURI 17:00: daily. of L) 25 MG 06 Medicin tablet e Magnesium 2019-02 Yes Take by [facility] 100 MG CAPS -23 mouth. Colleg e 17:00: of Medicin e Melatonin 2019-02 Yes Take by [facility] 10 MG TABS -23 mouth. College 17:00: of 06 Medicin e Potassium 2019-02 Yes Take 2 [facility] Citrate 1-23 tablets PO Colleg e (UROCIT-K 00:00: TID of 10) 10 MEQ 00 Medicin (1080 MG) e TBCR Potassium 2019-02- No Take 2 [facility] Citrate 1-23 03-22 tablets PO Colle ge (UROCIT-K 00:00: 00:00 TID of 10) 10 MEQ 00 :00 Medicin (1080 MG) e TBCR levothyroxi 2019-02 Yes 25ug Take 25 [place] ne 1-02 mcg by [place] (SYNTHROID) 00:00: mouth. of 25 MCG 00 Medicin tablet e levothyroxi 2019-02 Yes 25ug Take 25 [place] raul ne 1-02 mcg by [place] (SYNTHROID) 00:00: mouth. of 25 MCG 00 Medicin tablet e levothyroxi 2019-02- No 25ug Take 25 Ba ylor ne 1-02 11-10 mcg by [place] (SYNTHROID) 00:00: 00:00 mouth. of 25 MCG 00 :00 Medicin tablet e aspirin 81 2019-02 Yes [id number] 81mg Take 1 Univers mg chewable 0-01 [id number] tablet by i ty of tablet 00:00: mouth [place] 00 daily. Medical Branch pantoprazol 2019-02 Yes [id number] 20mg Take 1 Univers e 20 mg EC 0-01 tablet by ity of tablet 00:00: mouth [place] 00 daily. Medical Take 30 Branch mins before breakfast. aspirin 81 2019-02 Yes [id number] 81mg Take 1 Univers mg chewable 0-01 [id number] tablet by i ty of tablet 00:00: mouth [place] 00 daily. Medical Branch pantoprazol 2019-02 Yes [id number] 20mg Take 1 Univers e 20 mg EC 0-01 tablet by ity of tablet 00:00: mouth [place] 00 daily. Medical Take 30 Branch mins before breakfast. aspirin 81 2020- Yes [id number] 81mg Take 1 Univers mg chewable 0-01 [id number] tablet by i ty of tablet 00:00: mouth [place] 00 daily. Medical Branch pantoprazol 2020- Yes [id number] 20mg Take 1 Univers e 20 mg EC 0-01 tablet by ity of tablet 00:00: mouth [place] 00 daily. Medical Take 30 Branch mins before breakfast. aspirin 81 2019- Yes [id number] 81mg Take 1 Univers mg chewable 0-01 [id number] tablet by i ty of tablet 00:00: mouth [place] 00 daily. Medical Branch pantoprazol 2019- Yes [id number] 20mg Take 1 Univers e 20 mg EC 0-01 tablet by ity of tablet 00:00: mouth [place] 00 daily. Medical Take 30 Branch mins before breakfast. aspirin 81 2019-02 Yes [id number] 81mg Take 1 Univers mg chewable 0-01 [id number] tablet by i ty of tablet 00:00: mouth [place] 00 daily. Medical Branch pantoprazol 2019- Yes [id number] 20mg Take 1 Univers e 20 mg EC 0-01 tablet by ity of tablet 00:00: mouth [place] 00 daily. Medical Take 30 Branch mins before breakfast. aspirin 81 2019-02 Yes [id number] 81mg Take 1 Univers mg chewable 0-01 [id number] tablet by i ty of tablet 00:00: mouth [place] 00 daily. Medical Branch pantoprazol 2019- Yes [id number] 20mg Take 1 Univers e 20 mg EC 0-01 tablet by ity of tablet 00:00: mouth [place] 00 daily. Medical Take 30 Branch mins before breakfast. atorvastati 2020-0 Yes [facility] n (LIPITOR) 6-13 College 40 MG 00:00: of tablet 00 Medicin e atorvastati 2020-0 Yes [facility] n (LIPITOR) 6-13 College 40 MG 00:00: of tablet 00 Medicin e atorvastati 2020-0 Yes [facility] n (LIPITOR) 6-13 College 40 MG 00:00: of tablet 00 Medicin e atorvastati 2020-0 Yes [facility] n (LIPITOR) 6-13 College 40 MG 00:00: of tablet 00 Medicin e atorvastati 2020-0 Yes [facility] n (LIPITOR) 6-13 College 40 MG 00:00: of tablet 00 Medicin e amlodipine 2020-0 Yes [facility] (NORVASC) 5 6-02 College MG tablet 00:00: of 00 Medicin e amlodipine 2020-0 Yes [facility] (NORVASC) 5 6-02 College MG tablet 00:00: of 00 Medicin e amlodipine 2020-0 Yes [facility] (NORVASC) 5 6-02 College MG tablet 00:00: of 00 Medicin e amlodipine 2020-0 Yes [facility] (NORVASC) 5 6-02 College MG tablet 00:00: of 00 Medicin e amlodipine 2020-0 Yes [facility] (NORVASC) 5 6-02 College MG tablet 00:00: of 00 Medicin e losartan 2020-0 Yes [facility] (COZAAR) 5-30 College 100 MG 00:00: of tablet 00 Medicin e losartan 2020-0 Yes [facility] (COZAAR) 5-30 College 100 MG 00:00: of tablet 00 Medicin e losartan 2020-0 Yes [facility] (COZAAR) 5-30 College 100 MG 00:00: of tablet 00 Medicin e losartan 2020-0 Yes [facility] (COZAAR) 5-30 College 100 MG 00:00: of tablet 00 Medicin e losartan 2020-0 Yes [facility] (COZAAR) 5-30 College 100 MG 00:00: of tablet 00 Medicin e losartan 2020-0 Yes [facility]mg QD [facility].5 [facility] MG 00:00: (50 mg Medical tablet 00 total) by Center mouth daily. (AMOXICILLI 2020-0 Yes Mirella 4 tablets [facility]) 500 MG 5-12 Jono by mouth Comm uni CAPS 00:00: Wilfredo every 1 hr ty 00 prior to Health appointmen t for premedicat ion hydrALAZINE 2020-0 Yes 50mg [id number] Take [address] (APRESOLINE 2-17 [id number] by mouth 3 [facility] ) 50 MG 00:00: 3D (three) Medical tablet 00 times Center daily . hydroCHLORO 2020-0 Yes 25mg QD Take [address] thiazide 2-17 by mouth [facility] (HYDRODIURI 00:00: daily. Medi angelica L) 25 MG 00 [place] tablet aspirin EC 2018-0 Yes 81mg Take 81 mg B aylor 81 MG 6-21 by mouth. College tablet 00:00: of Medicin e aspirin EC 2019-0 Yes 81mg Take 81 mg B [facility] 81 MG 6-21 by mouth. College tablet 00:00: of Medicin e aspirin EC 2018-0 Yes 81mg Take 81 mg B [facility] 81 MG 6-21 by mouth. College tablet 00:00: of Medicin e aspirin EC 2018-0 Yes 81mg Take 81 mg B [facility] 81 MG 6-21 by mouth. College tablet 00:00: of Medicin e aspirin EC 2018-0 Yes 81mg Take 81 mg B [facility] 81 MG 6-21 by mouth. College tablet 00:00: of Medicin e aspirin 81 2018-0 Yes 81mg QD Take [address] MG chewable 6-21 by mouth [facility] tablet 00:00: daily. Medical 00 [place] atorvastati 2017-02 Yes 40mg QD Take [address] n (LIPITOR) 1-30 by mouth Luke s 40 MG 00:00: daily. Medical tablet 00 [place] amLODIPine 2017-02 Yes 2.5mg QD Take 2.[address] (NORVASC) 5 1-30 mg by [facility] MG tablet 00:00: mouth Medical 00 daily . [place] Immunizations Ordered Filled Immunization Date Status Comments [facility] Immunization Name Name SARS-COV-2 COVID-19 2021-01-15 Completed Unive rsity of MODERNA BOOSTER 00:00:00 [place] Med ical VACCINE Branch SARS-COV-2 COVID-19 2021-01-15 Completed Unive rsity of MODERNA BOOSTER 00:00:00 [place] Med ical VACCINE Branch SARS-COV-2 COVID-19 2021-01-15 Completed Unive rsity of MODERNA BOOSTER 00:00:00 [place] Med ical VACCINE Branch SARS-COV-2 COVID-19 2021-01-15 Completed Unive rsity of MODERNA 0.25ML 00:00:00 [place] Medi angelica BOOSTER VACCINE Branch SARS-COV-2 COVID-19 2021-01-15 Completed Unive rsity of MODERNA 0.25ML 00:00:00 [place] [facility] BOOSTER VACCINE Branch SARS-COV-2 COVID-19 2021-01-15 Completed Unive rsity of MODERNA 0.25ML 00:00:00 [facility] BOOSTER VACCINE Branch Influenza High Dose 2019-11-08 Completed Unive rsity of Quad 00:00:00 [facility] Influenza High Dose 2019-11-08 Completed Unive rsity of Quad 00:00:00 [facility] Influenza High Dose 2019-11-08 Completed Unive rsity of Quad 00:00:00 [facility] Influenza High Dose 2019-11-08 Completed Unive rsity of Quad 00:00:00 [facility] Influenza High Dose 2019-11-08 Completed Unive rsity of Quad 00:00:00 [facility] Influenza High Dose 2019-11-08 Completed Unive rsity of Quad 00:00:00 [facility] Influenza High Dose 2019-02-13 Completed Unive rsity of 00:00:00 [facility] Influenza High Dose 2019-02-13 Completed Unive rsity of 00:00:00 [facility] Influenza High Dose 2019-02-13 Completed Unive rsity of 00:00:00 [facility] Influenza High Dose 2019-02-13 Completed Unive rsity of 00:00:00 [facility] Influenza High Dose 2019-02-13 Completed Unive rsity of 00:00:00 [facility] Influenza High Dose 2019-02-13 Completed Unive rsity of 00:00:00 [facility] TDAP 2017-11-10 Completed University of 00:00:00 [facility] TDAP 2017-11-10 Completed University of 00:00:00 [facility] TDAP 2017-11-10 Completed University of 00:00:00 [facility] TDAP 2017-11-10 Completed University of 00:00:00 [facility] TDAP 2017-11-10 Completed University of 00:00:00 [facility] TDAP 2017-11-10 Completed University of 00:00:00 [facility] Pneumococcal 2017-06-09 Completed University o f Polysaccharide, 00:00:00 [place] [facility] PPSV23 (PNEUMOVAX) Branch Pneumococcal 2017-06-09 Completed University o f Polysaccharide, 00:00:00 [place] [facility] PPSV23 (PNEUMOVAX) Branch Pneumococcal 2017-06-09 Completed University o f Polysaccharide, 00:00:00 [place] [facility] PPSV23 (PNEUMOVAX) Branch Pneumococcal 2017-06-09 Completed University o f Polysaccharide, 00:00:00 [place] [facility] PPSV23 (PNEUMOVAX) Branch Pneumococcal 2017-06-09 Completed University o f Polysaccharide, 00:00:00 [place] [facility] PPSV23 (PNEUMOVAX) Branch Pneumococcal 2017-06-09 Completed University o f Polysaccharide, 00:00:00 [facility] ical PPSV23 (PNEUMOVAX) Branch Influenza High Dose 2016-11-14 Completed Unive rsity of 00:00:00 [facility] Influenza High Dose 2016-11-14 Completed Unive rsity of 00:00:00 [facility] Influenza High Dose 2016-11-14 Completed Unive rsity of 00:00:00 [facility] Influenza High Dose 2016-11-14 Completed Unive rsity of 00:00:00 [facility] Influenza High Dose 2016-11-14 Completed Unive rsity of 00:00:00 [facility] Influenza High Dose 2016-11-14 Completed Unive rsity of 00:00:00 [facility] Vital Signs Vital Name Observation Time Observation Value Comments Source HEIGHT 2019-07-08 00:00:00 147.3 cm WEIGHT 2019-07-08 00:00:00 57.743 kg Systolic blood 2021-05-03 15:25:00 121 mm[Hg] [facility] Medicine Diastolic blood 2021-05-03 15:25:00 65 mm[Hg] [facility] Medicine Heart rate 2021-05-03 15:25:00 88 /min [facility] Systolic blood 2020-12-23 21:48:00 137 mm[Hg] [facility] Medicine Diastolic blood 2020-12-23 21:48:00 69 mm[Hg] [facility] Medicine Heart rate 2020-12-23 21:48:00 73 /min [facility] Body temperature 2020-12-23 21:48:00 36.83 [facility] Respiratory rate 2020-12-23 21:48:00 15 /min [facility] Body height 2020-12-23 21:48:00 162.6 cm [facility] Body weight 2020-12-23 21:48:00 58.968 kg [facility] BMI 2020-12-23 21:48:00 22.31 kg/m2 [facility] ollege of Medicine Systolic blood 2020-05-04 15:57:00 131 mm[Hg] [facility] pressure Medicine Diastolic blood 2020-05-04 15:57:00 60 mm[Hg] [facility] Medicine Heart rate 2020-05-04 15:57:00 67 /min [facility] ollege of Medicine Respiratory rate 2020-05-04 15:57:00 18 /min [facility] Body height 2020-05-04 15:57:00 147.3 cm [facility] ollege of [facility] Body weight 2020-05-04 15:57:00 58.514 kg [facility] ollege of [facility] BMI 2020-05-04 15:57:00 26.96 kg/m2 [facility] ollege of [facility] Systolic blood 2020-01-06 16:58:00 146 mm[Hg] [facility] Medicine Diastolic blood 2020-01-06 16:58:00 71 mm[Hg] [facility] Medicine Heart rate 2020-01-06 16:58:00 88 /min [facility] ol[facility] of Medicine Body temperature 2020-01-06 16:58:00 36.44 [facility] Respiratory rate 2020-01-06 16:58:00 16 /min [facility] Body height 2020-01-06 16:58:00 144.8 cm [facility] ollege of [facility] Body weight 2020-01-06 16:58:00 58.968 kg [facility] ollege of [facility] BMI 2020-01-06 16:58:00 28.13 kg/m2 [facility] ollege of [facility] Systolic blood 2020-01-06 16:58:00 146 mm[Hg] [facility] Medicine Diastolic blood 2020-01-06 16:58:00 71 mm[Hg] [facility] Medicine Heart rate 2020-01-06 16:58:00 88 /min [facility] ollege of [facility] Body temperature 2020-01-06 16:58:00 36.44 Mon[facility] Respiratory rate 2020-01-06 16:58:00 16 /min [facility] Body height 2020-01-06 16:58:00 144.8 cm [facility] ollege of Medicine Body weight 2020-01-06 16:58:00 58.968 kg [facility] C ollege of Medicine BMI 2020-01-06 16:58:00 28.13 kg/m2 [facility] C ollege of Medicine Systolic blood 2019-10-07 14:05:00 127 mm[Hg] [facility] pressure Medicine Diastolic blood 2019-10-07 14:05:00 67 mm[Hg] [facility] Medicine Heart rate 2019-10-07 14:05:00 70 /min [facility] ol[facility] of Medicine Body temperature 2019-10-07 14:05:00 36.39 Mon[facility] Respiratory rate 2019-10-07 14:05:00 16 /min [facility] Body height 2019-10-07 14:05:00 162.6 cm [facility] ol[facility] of Medicine Body weight 2019-10-07 14:05:00 58.968 kg [facility] of Medicine BMI 2019-10-07 14:05:00 22.31 kg/m2 [facility] of Medicine Systolic blood 2019-10-07 14:05:00 127 mm[Hg] [facility] Medicine Diastolic blood 2019-10-07 14:05:00 67 mm[Hg] [facility] Medicine Heart rate 2019-10-07 14:05:00 70 /min [facility] of Medicine Body temperature 2019-10-07 14:05:00 36.39 [facility] Respiratory rate 2019-10-07 14:05:00 16 /min [facility] Body height 2019-10-07 14:05:00 162.6 cm [facility] of Medicine Body weight 2019-10-07 14:05:00 58.968 kg [facility] Medicine BMI 2019-10-07 14:05:00 22.31 kg/m2 [facility] of Medicine HEIGHT 2019-07-08 00:00:00 147.3 cm WEIGHT 2019-07-08 00:00:00 57.743 kg pulse rate 2019-07-01 08:14:01 80 /min [facility] blood pressure, 2019-07-01 08:14:01 71 mm[Hg] [facility] blood pressure, 2019-07-01 08:14:01 171 mm[Hg] [facility] pulse rate 2019-06-25 09:35:00 76 /min [facility] blood pressure, 2019-06-25 09:35:00 77 mm[Hg] [facility] diastolic Health blood pressure, 2019-06-25 09:35:00 153 mm[Hg] [facility] systolic Health Procedures Procedure Date / Time Performing Clinician Source Performed INSURANCE CORRESPONDENCE 2021-05-13 05:01:00 Doctor Unassigned, [facility] [place] [facility] POCT URINALYSIS DIPSTICK 2020-12-23 00:00:00 Keerthi Germain [facility] POCT URINALYSIS DIPSTICK 2020-01-06 00:00:00 Keerthi Germain [facility] BASIC METABOLIC PANEL 2019-10-07 14:32:00 Keerthi Germain [facility] MAGNESIUM 2019-10-07 14:32:00 Keerthi Germain [facility] URIC ACID 2019-10-07 14:32:00 Keerthi Germain [facility] Plan of Care Planned Activity Planned Date Details Comments Source Future Scheduled 2027-11-11 DTAP/TDAP/TD [facility] 00:[facility]:00 VACCINES (2 - Td or Medical Center Tdap) [code = DTAP/TDAP/TD VACCINES (2 - Td or Tdap)] Future Scheduled 2021-05-04 ZOSTER VACCINE (1 of [facility] Test 15:51:29 2) [code = ZOSTER of Medicin e VACCINE (1 of 2)] Future Scheduled 2021-05-04 Screening for [facility] Col lege Test 15:51:29 osteoporosis of Medicine (procedure) [code = 743288720] Future Scheduled 2021-05-04 Pneumococcal 65+ (1 [facility] [place] Test 15:51:29 of 1 - PPSV23) [code of Medi cine = Pneumococcal 65+ (1 of 1 - PPSV23)] Future Scheduled 2021-05-04 MEDICARE AWV [facility] Test 15:51:29 (Initial) [code = of Medicin e MEDICARE AWV (Initial)] Future Scheduled 2021-05-04 FLU VACCINE > 6 [facility] C ollege Test 15:51:29 MONTHS [code [...] Medicine Future Scheduled 2021-05-04 TETANUS SHOT (ADULT) [employer] Test 15:51:29 [code = TETANUS SHOT of Medi cine (ADULT)] Future Scheduled 2021-05-04 US RENAL BILATERAL Expected: [employer] Test 00:00:00 [code = 64717] 05/04/2021, of Medicine Expires: 05/04/2021 Future Scheduled 2021-01-03 COVID-19 Vaccine (1) [employer] Test 08:34:34 [code = COVID-19 of Medicine Vaccine (1)] Future Scheduled 2021-01-03 ZOSTER VACCINE (1 of [employer] Test 08:34:34 2) [code = ZOSTER of Medicin e VACCINE (1 of 2)] Future Scheduled 2021-01-03 Screening for [facility] Col lege Test 08:34:34 osteoporosis of Medicine (procedure) [code = 540162149] Future Scheduled 2021-01-03 Pneumococcal 65+ (1 [employer] Test 08:34:34 of 1 - PPSV23) [code of Medi cine = Pneumococcal 65+ (1 of 1 - PPSV23)] Future Scheduled 2021-01-03 MEDICARE AWV [facility] Kristine ege Test 08:34:34 (Initial) [code = of Medicin e MEDICARE AWV (Initial)] Future Scheduled 2021-01-03 FLU VACCINE > 6 [facility] C ollege Test 08:34:34 MONTHS [code = FLU of Medici ne VACCINE > 6 MONTHS] Future Scheduled 2021-01-03 FALL SCREEN [code = [employer] Test 08:34:34 FALL SCREEN] of Medicine Future Scheduled 2021-01-03 TETANUS SHOT (ADULT) [employer] Test 08:34:34 [code = TETANUS SHOT of Medi cine (ADULT)] Future Scheduled 2020-10-[address] [facility] Test 00:00:00 (#1) [code = Medical Center INFLUENZA VACCINE (#1)] Diagnostic Test 2020-07-11 US RENAL BILATERAL Expected: [facility] Pending 00:00:00 [code = 53476] 07/11/2020, of Medicine Expires: 01/11/2021 Future Scheduled 2020-05-[address] [facility] [facility] Test 00:00:00 WELLNESS (YEAR 2 or Medical Center FIRST YEAR if no IPPE) [code = MEDICARE ANNUAL WELLNESS (YEAR 2 or FIRST YEAR if no IPPE)] Future Scheduled 2020-02-[address] [facility] Test 00:00:00 (12+) [code = Medical Center DEPRESSION SCREENING (12+)] Future Scheduled 2020-02-14 FALLS RISK SCREENING [facility] Test 00:00:00 [code = FALLS RISK Medical C enter SCREENING] Future Scheduled 1986 SHINGLES VACCINES ([address] [facility] Test 00:00:00 of 2) [code = Medical Center SHINGLES VACCINES (1 of 2)] Future Scheduled 1948 COVID-19 VACCINE (1) [facility] Test 00:00:00 [code = COVID-[address] VACCINE (1)] Future Scheduled PTH,INTACT,WITH Ordered: [facility] ollege Test CALCIUM,PO4,CREAT 10/07/2019 of Medicin e [code = NOCPT] Future Scheduled TETANUS SHOT (ADULT) [facility] Test [code = TETANUS SHOT of Medi cine (ADULT)] Future Scheduled ZOSTER VACCINE (1 of [facility] Test 2) [code = ZOSTER of Medicin e VACCINE (1 of 2)] Future Scheduled OSTEOPOROSIS [facility] Kristine [facility]ge Test SCREENING [code = of Medicin e OSTEOPOROSIS SCREENING] Future Scheduled MEDICARE AWV [facility] Kristine ege Test (Initial) [code = of Medicin e MEDICARE AWV (Initial)] Future Scheduled FLU VACCINE > 6 [facility] C ollege Test MONTHS [code = FLU of Medici ne VACCINE > 6 MONTHS] Future Scheduled FALL SCREEN [code = [facility] or [place] Test FALL SCREEN] of Medicine Future Scheduled BMI FOLLOW UP PLAN [facility] Test [code = BMI FOLLOW of Medici ne UP PLAN] Future Scheduled ZOSTER VACCINE (1 of [employer] Test 2) [code = ZOSTER of Medicin e VACCINE (1 of 2)] Future Scheduled OSTEOPOROSIS [facility] Kristine ege Test SCREENING [code = of Medicin e OSTEOPOROSIS SCREENING] Future Scheduled MEDICARE IPPE Art Col [facility]ge Test (WELCOME TO of Medicine MEDICARE) [code = MEDICARE IPPE (WELCOME TO MEDICARE)] Future Scheduled FLU VACCINE > 6 Art C ollege Test MONTHS [code = FLU of Medici ne VACCINE > 6 MONTHS] Future Scheduled FALL SCREEN [code = [employer] Test FALL SCREEN] of Medicine Future Scheduled TETANUS SHOT (ADULT) [employer] Test [code = TETANUS SHOT of Medi cine (ADULT)] Future Scheduled COVID-19 Vaccine (1) [employer] Test [code = COVID-19 of Medicine Vaccine (1)] Future Scheduled BMI FOLLOW UP PLAN [employer] Test [code = BMI FOLLOW of Medici ne UP PLAN] Future Scheduled ZOSTER VACCINE (1 of [employer] Test 2) [code = ZOSTER of Medicin e VACCINE (1 of 2)] Future Scheduled Screening for Art [employer] Test osteoporosis of Medicine (procedure) [code = 743618667] Future Scheduled MEDICARE IPPE Art Col [employer]ge Test (WELCOME TO Medicine MEDICARE) [code = MEDICARE IPPE (WELCOME TO MEDICARE)] Future Scheduled FLU VACCINE > 6 Art C ollege Test MONTHS [code = FLU of Medici ne VACCINE > 6 MONTHS] Future Scheduled FALL SCREEN [code = [employer] Test FALL SCREEN] of Medicine Future Scheduled TETANUS SHOT (ADULT) [employer] Test [code = TETANUS SHOT of Medi cine (ADULT)] Encounters Start End Encounter Admission Attending Care Care Encounter Source Date/Time Date/Time Type Type Clinicians Facility Department ID 2020-11-29 Outpatient [facility] [id number] [facility] 10:44:36 [id number] [facility] 2020-11-29 Outpatient [facility] [id number] Legacy 08:37:05 [id number] [facility] 2020-11-26 Outpatient [facility] [id number] Legacy 17:47:41 [id number] [facility] 2020-11-26 Outpatient [facility] [id number] Legacy 17:43:25 [id number] [facility] 2020-11-26 Outpatient [facility] [id number] Legacy 17:38:25 [id number] [facility] 2020-11-26 Outpatient [facility] [id number] Legacy 17:36:45 [id number] [facility] 2020-11-26 Outpatient [facility] [id number] Legacy 17:34:20 [id number] [facility] 2020-11-26 Outpatient [facility] [id number] Legacy 17:30:46 [id number] [facility] 2020-11-26 Outpatient [facility] [id number] Legacy 17:29:46 [id number] [facility] 2020-11-17 Inpatient ER GUILLERMO, [facility] Urology [id number] SLE 14:52:09 LILIANA 2021-06-09 2021-06-09 Case Rea [facility] [id number] Univers 00:00:00 00:00:00 [facility] 350.1.13.10 ity of [place] 4.2.7.2.686 Kilo as BHARTI?BLEA [phone] [address] 2021-06-08 2021-06-08 Laboratory Only, Ang Db Test [facility] 1.2.8 40.114 [id number] Univers 09:15:00 09:30:[address] [facility] 350.1.13.10 ity of [place] 4.2.7.2.686 Kiol as BHARTI?BLEA [phone] [address] 2021-06-08 2021-06-08 Outpatient R [facility] [id number] Univers 09:15:00 09:15:00 [id number] ity [facility] 2021-06-08 2021-06-08 Outpatient R RAMBO [facility] [id number] Univers 09:15:00 09:15:00 [facility] 2021-05-17 2021-05-17 Outpatient R JOEL [facility] [id number] Univers 13:30:00 13:30:00 NAEL [id number] ity o paula MCCAIN [facility] 2021-05-17 2021-05-17 Outpatient R JOEL [facility] [id number] Univers 13:30:00 13:30:00 karina NAYAK paula KALYN [facility] 2021-05-13 2021-05-13 Orders Doctor LILLIANA 1.2.840.114 [id number] Univers 00:00:00 00:00:00 Only Unassigned, MACKENZIE 350.1.13.10 ity of [place] [facility] 4.2.7.2.686 Kilo as [id number] [facility] angelica 009 Branch 2021-05-03 2021-05-03 Office Link, [facility] 1.2.840.114 [id number] [facility] 10:00:00 11:16:44 Visit Keerthi E AMBULATOR 350.1.13.21 College Y 0.2.7.2.686 of [id number] [facility] raimundo 300 e 2021-05-03 2021-05-03 [id number] [facility] 10:26:26 10:26:26 Colleg e of Medicin e 2021-05-03 2021-05-03 Outpatient [facility] [id number] [facility] 10:13:26 10:13:26 Colleg e of Medicin e 2021-05-03 2021-05-03 [facility] [id number] Univers 00:00:00 00:00:00 Zamzam HEALTH 350.1.13.10 it y [facility] 4.2.7.2.686 Kilo as BHARTI?BLEA [phone] [address] MEDICAL OFFICE [facility] 2021-04-30 2021-04-30 Telephone [facility] [id number] Univers 00:00:00 00:00:00 Gerardo HEALTH 350.1.13.10 it y of [place] 4.2.7.2.686 Kilo as BHARTI?BLEA [id number] [address] MEDICAL OFFICE [facility] 2021-04-29 2021-04-29 Refshruthi Mcclain [facility] 1.2.840.114 [id number] Univers 00:00:00 00:00:00 Wonyasminful A [place] 350.1.13.10 ity of [place] 4.2.7.2.686 Jona manning PROFESSIO [phone] Ia dical NAL 044 [facility] 2020-12-23 2020-12-23 Office Link, [facility] 1.2.840.114 [id number] [facility] 16:00:00 16:15:00 Visit Keerthi Dias AMBULATOR 350.1.13.21 College Y 0.2.7.2.686 of [id number] Medi raimundo 300 e 2020-05-04 2020-05-04 Office LINK, [facility] 1.2.840.114 [id number] [facility] 10:43:07 12:09:48 Visit KEERTHI AMBULATOR 350.1.13.21 College Y 0.2.7.2.686 of [id number] Medi raimundo 300 e 2020-04-29 2020-04-29 Telephone Beto [facility] [id number] 00:00:00 00:00:00 Daniel Harris 350.1.13.10 [place] 4.2.7.2.686 Professio [phone] [address] 2020-04-29 2020-04-29 Refill Beot [facility] 1.2.840.114 [id number] 00:00:00 00:00:00 Daniel Harris 350.1.13.10 [place] 4.2.7.2.686 Professio [phone] [address] 2020-04-25 2020-04-25 Urgent [facility] [id number] [id number] 10:12:47 10:32:47 Care [facility] Urgent Health 350.1.13.10 Care [place] 4.2.7.2.686 Professio [phone] [place] [address] Office [facility] 2020-04-15 2020-04-15 Telephone Sarahi TNDELIA 1.2.840.114 [id number] 00:00:00 00:00:00 Wondiful [facility] 350.1.13.10 [place] 4.2.7.2.686 Professio [phone] [place] [address] Office [facility] 2020-03-07 2020-03-07 Patient Tyler [facility] 1.2.840.114 [id number] 00:00:00 00:00:00 Outreach Ethan PRIMARY 350.1.13.10 [facility] 4.2.7.2.686 PAVDORENE [id number] [id number] 2020-01-16 2020-01-16 Telemedici JOHN Mcclain 1.2.840.114 [id number] 16:09:25 16:24:25 ne Visit Jamilful A Health 350.1.13.10 [place] 4.2.7.2.686 Professio [phone] nal 044 Office Building One 2020-01-12 2020-01-12 Orders Doctor LILLIANA 1.2.840.114 [id number] 00:00:00 00:00:00 Only Unassigned, MACKENZIE 350.1.13.10 [place] [facility] 4.2.7.2.686 [id number] 009 2020-01-06 2020-01-06 Office Link, [facility] 1.2.840.114 [id number] 10:46:16 11:44:31 Visit Keerthi Dias AMBULATOR 350.1.13.21 Y 0.2.7.2.686 [id number] 300 2020-01-06 2020-01-06 Office Link, [facility] 1.2.840.[id number] [place] [address] 10:46:16 11:44:31 Visit Keerthi Dias AMBULATOR 350.1.13.21 College Y 0.2.7.2.686 of [id number] [facility] 300 e 2019-12-16 2019-12-16 Case Sarahi [facility] 1.2.840.114 [id number] 00:00:00 00:00:00 Management Jamilful [facility] 350.1.13.10 [place] 4.2.7.2.686 Professio [phone] nal 044 Office Building One 2019-12-12 2019-12-12 Dramatic Director 1, Adc Lab [facility] 1.2.840.114 [id number] 09:36:54 09:51:54 Visit Kimberly 350.1.13.10 [place] 4.2.7.2.686 [place] [id number] [id number] 2019-12-12 2019-12-12 Telephone Sarahi [place] 1.2.840.114 [id number] 00:00:00 00:00:00 Wondiful [facility] 350.1.13.10 [place] 4.2.7.2.686 Professio [phone] [place] [address] Office [address] One 2019-12-05 2019-12-05 Orders Doctor LILLIANA 1.2.840.114 [id number] 00:00:00 00:00:00 Only Unassigned, MACKENZIE 350.1.13.10 [place] [facility] 4.2.7.2.686 [id number] 009 2019-11-14 2019-11-14 Case Sarahi [facility] 1.2.840.114 [id number] 00:00:00 00:00:00 Management Wondiful [facility] 350.1.13.10 [place] 4.2.7.2.686 Professio [phone] [place] [address] Office [facility] 2019-11-13 2019-11-13 Case Sarahi [facility] 1.2.840.114 [id number] 00:00:00 00:00:00 Management Wondiful [facility] 350.1.13.10 [place] 4.2.7.2.686 Professio [phone] [place] [address] Office Building One 2019-11-08 2019-11-08 Office Sarahi [facility] 1.2.840.114 [id number] 09:44:58 11:00:23 Visit Wondiful [facility] 350.1.13.10 [place] 4.2.7.2.686 Professio [phone] [place] [address] Office Building One 2019-10-07 2019-10-07 Office Bang [facility] 1.2.840.114 [id number] 08:45:50 10:08:26 Visit Keerthi Dias AMBULATOR 350.1.13.21 Y 0.2.7.2.686 [id number] 300 2019-10-07 2019-10-07 Office ROSE Germain 1.2.840.[id number] [place] [address] 08:45:50 10:08:26 Visit Keerthi Dias AMBULATOR 350.1.13.21 College Y 0.2.7.2.686 of [id number] [facility] 300 e 2019-08-29 2019-08-29 Urgent Lab, Adc [facility] 1.2.840.114 [id number] 11:00:00 11:20:00 [facility] 350.1.13.10 [place] 4.2.7.2.686 Vahe [phone] nal 044 Office Building One 2019-07-30 2019-07-30 Office ADRIAN Thacker LC Encounter / [facility] 00:00:00 00:00:00 Visit Renata [id number] Com natalee [id number] [facility] 2019-07-01 2019-07-01 Office Wilfredo, [facility] LC Encounter/ [facility] 00:00:00 00:00:00 Visit Mirella [id number] Com natalee Jono [id number] [facility] 2019-07-01 2019-07-01 Office Wilfredo, [facility] LC Encounter/ [facility] 00:00:00 00:00:00 Visit Mirella [id number] Com natalee Jono [id number] [facility] 2019-07-01 2019-07-01 Office WilfredoMirella willingham [facility] LC Encounter/ [facility] 00:00:00 00:00:00 Visit Shy Miller [id number] [facility] [place] [id number] ty Health 2019-06-25 2019-06-25 Office Wilfredo, [facility] LC Encounter/ Legacy 00:00:00 00:00:00 Visit Mirella [id number] Com natalee Jono [id number] ty [facility] 2019-06-25 2019-06-25 Office Wilfredo, [facility] LC Encounter/ Legacy 00:00:00 00:00:00 Visit Mirella [id number] Com natalee Jono [id number] ty Health 2019-06-25 2019-06-25 Office Wilfredo, [facility] LC Encounter/ Legacy 00:00:00 00:00:00 Visit Mirella [id number] Com natalee Jono [id number] ty Health 2019-06-25 2019-06-25 Office WilfredoMirella willingham [facility] LC Encounter/ Legacy 00:00:00 00:00:00 Visit Renata Thacker [id number] [facility] [id number] Health Results Test Description Test Time Test Comments Results Result Comments Source POCT URINALYSIS DIPSTICK 2020-12-23 00:00:00 Test Item Value Reference Range Interpretation Comme nts COLOR UA (test code = 5778-6) Yellow YELLOW/STRAW CLARITY UA (test code = 35069-0) Clear CLEAR GLUCOSE UA (test code = 5792-7) Negative NEGATIVE BILIRUBIN UA (test code = 5770-3) Negative NEGATIVE KETONES UA (test code = 32723-3) Negative NEGATIVE SPECIFIC GRAVITY UA (test code [...] NEGATIVE REDUCING SUBSTANCES URINE (test code = 19546-6) NEGATI VE Lab Interpretation (test code = 19266-2) [facility]normal [facility] [id number] 00:00:00 Test Item Value Reference Range Interpretation Comments COLOR UA (test code = 5778-6) Light Yellow YELLOW/STRAW CLARITY UA (test code = Cloudy CLEAR 99638-5) GLUCOSE UA (test code = Negative NEGATIVE 5792-7) BILIRUBIN UA (test code = Negative NEGATIVE 5770-3) KETONES UA (test code = Negative NEGATIVE 09862-4) SPECIFIC GRAVITY UA (test 1.005-1.035 code = [...] 5802-4) REDUCING SUBSTANCES URINE (test code = 17711-0) [facility] [id number] 11:28:02 Test Item Value Reference Range Interpretation Comments MAGNESIUM (test code = See_Comment Unless Otherwise 59671-5) Indicated, All Testing Performed At: [facility], [address] [place] [address] Laboratory Di laurent: Tani rogers M.D. CLIA Number [id number] [facility] [place] [id number] [Auto mated message] The sy stem which generated this result transmitted ref erence range: 1.6 - 2. 6 MG/DL. The reference r nanci was not used to int erpret this result as minor l/abnormal. [facility] METABOLIC [id number] 08:53:12 Test Item Value Reference Range Interpretation Comments GLUCOSE (test code = See_Comment H [Autom ated message] 2345-7) The system iMER generated this result transmitted ref erence range: [...] L [Au tomated message] 2160-0) The system iMER generated this result transmitted ref erence range: 0.60 - 1 .30 MG/DL. The refe rence range was not u sed to interpret this result as normal/abnor mal. EGFR AA (test code = See_Comment [Autom ated message] 55595-8) The system iMER generated this result transmitted ref erence range: >60 ML/MIN/1.73. Th e reference range was not used to int erpret this result as normal/abnormal . EGFR (test code = See_Comment [Automate d message] 05615-0) The system iMER generated this result transmitted ref erence range: >60 ML/MIN/1.73. Th e reference range was not used to int erpret this result as normal/abnormal . SODIUM (test code = See_Comment [Automa kendrick message] 2951-2) The system iMER generated this result transmitted ref erence range: 133 - 14 6 MEQ/L. The refe rence range was not u sed to interpret this result as normal/abnor mal. POTASSIUM (test code = See_Comment [Aut omated message] 2823-3) The system iMER generated this result transmitted ref erence range: 3.5 - 5. 4 MEQ/L. The refe rence range was not u sed to interpret this result as normal/abnor mal. CHLORIDE (test code = See_Comment [Auto mated message] 2074-0) The system iMER generated this result transmitted ref erence range: 95 - 107 MEQ/L. The reference r nanci was not used to interpret this result as normal/abnor mal. CO2 (test code = See_Comment [Automated message] 1962-8) The system iMER generated this result transmitted ref erence range: 19 - 31 MEQ/L. The reference r nanci was not used to interpret this result as normal/abnor mal. CALCIUM (test code = See_Comment Unless 39162-9) Otherwise Indic ated, All Testing Per formed At: [facility], [address] [place], [place] [address] Laboratory Dire ctor: Tani rogers M.D. CLIA Num jovanni [id number] Cap Accreditation [place]. [id number] [Auto mated message] The sy stem which generated this result transmit kendrick reference range : 8.5 - 10.5 MG/DL. The reference range was not used to int erpret this result as normal/abnormal . Lab Interpretation Abnormal (test code = 48824-6) [facility] [id number] 08:53:12 Test Item Value Reference Range Interpretation Comments URIC ACID (test code See_Comment Unless Otherwise = 8969537) Indicated, All Testing Performed At: [facility], [address] [place] [address] 4 Laboratory Dire ctor: Tani Vazquez M.D. CLIA Number [id number] [place] [employer] [place]. [id number] [Automated mess age] The system which ge nerated this result transmit kendrick reference range: 2.7 - 6. 1 MG/DL. The reference range was not used to interpret th is result as normal/abnormal . [facility], FLUORO, NON-SPECIFIC, UP TO 1 [id number] 09:44:00Reason for exam:->cystoFINAL REPORT A fluoroscopic unit was utilized for a procedure performed in the operating room. No interpretation was requested. Please refer to the operative report regarding findings. Please refer to PACS for patient radiation dose information. Signed: JR Elizabeth, Alla Mast Verified Date/Time: 07/14/2019 09:44:15 Reading Location: [address] Neuro Reading Room BLOOD [id number] 11:00:00 Test Item Value Reference Range Interpretation Comments CULTURE (BEAKER) (test No growth in 5 days code = 1095) BLOOD [id number] 11:00:00 Test Item Value Reference Range Interpretation Comments CULTURE (BEAKER) (test No growth in 5 days code = 1095) URINE [id number] 11:07:00 Test Item Value Reference Range Interpretation Comments CULTURE (BEAKER) (test code = 1095) No growth ANG, NEPHROSTOMY, PERC, EXTERNAL [id number] 11:00:00Reason for exam:- >request left PCN for left obstructing stone, feversFINAL REPORT Procedure: Percutaneous nephrostomy catheter placement. History: Left ureteric calculus with obstruction, infection. Carpet Loom Fixer: Bradford Martin M.D. Battery Container Inspector: Nargis mckeon M.D. Modality: Ultrasound and fluoroscopy. [...] sequential dilatation of the tract, an 8.5 Danish nephrostomy catheter was placed, pigtail locked in [...] bladder. Impression:Successful ultrasound and fluoroscopic guided 8.5 Danish nephrostomy catheter placement leftkidney via a posterior inferior calyx as described above. Further management dictated by the clinical scenario. The nephrostomy catheter(s) should be exchanged at the latest in three months. Thank you for the opportunity to assist in the care of your patient. Signed: Bradford Martin MDReport Verified Date/Time: 07/10/2019 11:00:12 Reading Location: [facility] P048 Angio Body Reading Room Electronically signed by: Kwesi PETERSON 07/10/2019 11:00 AM BASIC METABOLIC [id number] 07:33:00 Test Item Value Reference Range Interpretation [...] 1092) DATA TO CALCULA TE ESTIMATED GFR. Sheet Cutter ID - MONIE [id number] 07:25:00 Test Item Value Reference Range Interpretation Comments MAGNESIUM (BEAKER) (test code = 2.2 mg/dL 1.6-2.6 627) Sheet Cutter ID - MONIE CHEPATIC FUNCTION [id number] 07:25:00 Test Item Value Reference Range Interpretation [...] (test code = 43 U/L 6-55 347) Sheet Cutter ID - MONIE CCBC W/PLT COUNT & AUTO [id number] 06:54:00 Test Item Value Reference Range Interpretation [...] (BEAKER) (test code = 2801) BASIC METABOLIC [id number] 05:38:00 Test Item Value Reference Range Interpretation [...] 1092) DATA TO CALCULA TE ESTIMATED GFR. Sheet Cutter ID - [id number] 05:24:00 Test Item Value Reference Range Interpretation Comments MAGNESIUM (BEAKER) (test code = 1.8 mg/dL 1.6-2.6 627) Sheet Cutter ID - LAHEPATIC FUNCTION [id number] 05:24:00 Test Item Value Reference Range Interpretation [...] (test code = 36 U/L 6-55 347) Sheet Cutter ID - LACBC W/PLT COUNT & AUTO [id number] 04:34:00 Test Item Value Reference Range Interpretation [...] (BEAKER) (test code = 2801) LACTIC ACID, [id number] 20:25:00 Test Item Value Reference Range Interpretation Comments LACTATE BLOOD VENOUS (2) (BEAKER) 0.69 mmol/L 0.50-2.20 (test code = 2872) Sheet Cutter ID - NTPRAD, CHEST, 1 VIEW, NON [id number] 16:24:00Reason for exam:->feverShould this be performed at the bedside?->YesFINAL REPORT CLINICAL HISTORY: fever TECHNIQUE: 1 view of the chest. COMPARISON: None IMPRESSION: There is possible retrocardiac left lower lobe consolidation, for which clinical correlation for pneumonia is requested. There is blunting of the left costophrenic angle. The heartis not enlarged. Signed: Rich Valentine MDReport Verified Date/Time: 07/08/2019 16:24:52 Reading Loca tion: [facility] B1 C013V Neuro Reading Room HEMOGLOBIN [id number] 13:56:00 Test Item Value Reference Range Interpretation Comments HEMOGLOBIN A1C (BEAKER) (test code = 6.1 % 4.3-6.1 368) URINALYSIS W/ REFLEX URINE [id number] 13:15:00 Test Item Value Reference Range Interpretation [...] = 516) SOURCE(BEAKER) (test code = 2795) Sheet Cutter ID - [auto]Sheet Cutter ID - techRESPIRATORY PANEL [id number] 12:14:00 Test Item Value Reference Range Interpretation [...] decisions. This sample was tested at the [facility] using the [employer] FilmArray Respiratory Panel. It is FDA cleared and has been verified and approved by the [facility] for clinical use on nasopharyngeal swab specimens.The performance of the FilmArrayRP has not been established in individuals who received influenza vaccine. Recent administration ofa nasal influenza vaccine may cause false positive results for Influenza A and/orInfluenza B.SARS-COV2/RT-PCR ([facility])2019-07-08 11:26:00 Test Item Value Reference Range Interpretation Comments SARS-COV2/RT-PCR (test Not Detected Not Detected, Negative code = 8660437) SARS-COV-2 PERFORMING LAB [facility] (test code = 2693887) Negative results do not preclude SARS-CoV-2 infection [...] of the Act.Fact Sheet for Healthcare Pro viders:https://www.[employer]/Documents/Xpert%20Xpress%20SARS%20CoV-2/Fact%20Sh eets/3023802%66DRQF-EBQ-3%20HEALTHCARE%20PROVIDERS%20FACT%20SHEET.pdfFact Sheet for Healthcare Patients:https://www.[employer]/Documents/Xpert%20Xpress%20SARS%20CoV-2/Fact%20Sheets/3023801%20SARS-COV -2%20PATIENT%20FACT%20SHEET.pdfPerforming Laboratory:[facility], [place] [address]MYHPR METABOLIC [id number] 10:06:00 Test Item Value Reference Range Interpretation [...] 1092) DATA TO CALCULA TE ESTIMATED GFR. Sheet Cutter ID - [id number] 10:05:00 Test Item Value Reference Range Interpretation Comments MAGNESIUM (BEAKER) (test code = 2.0 mg/dL 1.6-2.6 627) Sheet Cutter ID - NTPHEPATIC FUNCTION [id number] 10:05:00 Test Item Value Reference Range Interpretation [...] (test code = 30 U/L 6-55 347) Sheet Cutter ID - [id number] 09:53:00 Test Item Value Reference Range Interpretation [...] is2.5-3.5 for patients wiht mechanical heart valves.PROTHROMBIN TIME/[id number] 09:51:00 Test Item Value Reference Range Interpretation [...] for patients wiht mechanical heart valves.LACTIC ACID, [id number] 09:50:00 Test Item Value Reference Range Interpretation Comments LACTATE BLOOD VENOUS (2) (BEAKER) 2.87 mmol/L 0.50-2.20 H (test code = 2872) Sheet Cutter ID - NTPCBC W/PLT COUNT & AUTO [id number] 09:41:00 Test Item Value Reference Range Interpretation [...]
--- NOTE | 2021-06-28 18:53 | EDPHYS ---
Physician Documentation [facility] Name: Erika Jacobson Age: 86 yrs Sex: Female : 1935 Arrival Date: 06/28/2021 Time: 17:00 Bed 11 Private MD: ED Physician Chao Aponte HPI: 06/28 20:35 This 86 yrs old Female presents to ER via Ambulatory with complaints of cp Abdominal Pain, Diarrhea. 20:35 The patient presents with diarrhea. cp 20:35 Onset: The symptoms/episode began/occurred 2 day(s) ago. The symptoms do not radiate. cp Associated signs and symptoms: Pertinent negatives: blood in stools, chest pain, constipation, fever, shortness of breath, vomiting, abdominal pain at this time. Patient reports she has been taking prescribed antibiotic for abdominal pain since yesterday. Unable to tell me name of antibiotic. Son translating for patient. Historical: - Home Meds: 17:20 amlodipine 5 mg tab 1 tab once daily [Active]; aspirin 81 mg Oral chew 1 tab once daily ll1 [Active]; atorvastatin 40 mg Oral tab 1 tab once daily [Active]; losartan 100 mg Oral tab 1 tab once daily [Active]; ventolin inhaler [Active]; - PMHx: 17:20 Asthma; CVA; Hyperlipidemia; Hypertension; ll1 - PSHx: 17:20 choleycestectomy; kidney stones; ll1 - Immunization history:: Client reports receiving the 2nd dose of the Covid vaccine, Pneumococcal vaccine is up to date, Flu vaccine is up to date. - Social history:: Smoking status: Patient denies any tobacco usage or history of. ROS: 20:40 Constitutional: Negative for body aches, chills, fever, poor PO intake. cp 20:40 Eyes: Negative for injury, pain, redness, and discharge. cp 20:40 ENT: Negative for drainage from ear(s), ear pain, sore throat, difficulty swallowing, difficulty handling secretions. 20:40 Neck: Negative for pain with movement, pain at rest, stiffness. 20:40 Cardiovascular: Negative for chest pain. 20:40 Respiratory: Negative for cough, shortness of breath, wheezing. 20:40 Abdomen/GI: Positive for diarrhea, Negative for abdominal pain, vomiting, constipation, black/tarry stool, rectal bleeding. 20:40 Back: Negative for pain at rest, pain with movement. 20:40 : Negative for urinary symptoms. 20:40 Neuro: Negative for altered mental status, headache, numbness, weakness. 20:40 All other systems are negative. Exam: 20:45 Constitutional: The patient appears in no acute distress, alert, awake, comfortable, cp non-diaphoretic, non-toxic, well developed, well nourished. 20:45 Head/Face: Normocephalic, atraumatic. cp 20:45 Eyes: Periorbital structures: appear normal, Conjunctiva: normal, no exudate, no injection, Sclera: no appreciated abnormality, Lids and lashes: appear normal, bilaterally. 20:45 ENT: External ear(s): are unremarkable, Nose: is normal, Mouth: Lips: moist, Oral mucosa: moist, Posterior pharynx: Airway: no evidence of obstruction, patent. 20:45 Chest/axilla: Inspection: normal, Palpation: is normal, no crepitus, no tenderness. 20:45 Cardiovascular: Rate: normal, Rhythm: regular, Edema: is not appreciated, JVD: is not appreciated. 20:45 Respiratory: the patient does not display signs of respiratory distress, Respirations: normal, no use of accessory muscles, no retractions, labored breathing, is not present, Breath sounds: are clear throughout, no decreased breath sounds, no stridor, no wheezing. 20:45 Abdomen/GI: Inspection: abdomen appears normal, Bowel sounds: active, all quadrants, Palpation: abdomen is soft and non-tender, in all quadrants. 20:45 Back: pain, is absent, ROM is normal. 20:45 Neuro: Orientation: to person, place \\T\\ time. Mentation: is normal, Motor: moves all fours, strength is normal, Sensation: is normal. Vital Signs: 17:13 BP 143 / 57; Pulse 78; Resp 20; Temp 98.1(O); Pulse Ox 98% on R/A; Pain 0/10; ll1 17:21 BP 143 / 57; Pulse 74; Resp 20; Temp 98.1(O); Pulse Ox 99% on R/A; Pain 0/10; ll1 23:37 BP 135 / 52; Pulse 78; Resp 16; Pulse Ox 99% on R/A; kd3 MDM: 18:52 Medical screening is not applicable. [facility] 20:28 Patient medically screened. 23:25 Data reviewed: vital signs, nurses notes, lab test result(s), radiologic studies, CT cp scan. 23:25 Counseling: I had a detailed discussion with the patient and/or guardian regarding: the cp historical points, exam findings, and any diagnostic results supporting the discharge/admit diagnosis, lab results, radiology results, the need for outpatient follow up, a family practitioner, to return to the emergency department if symptoms worsen or persist or if there are any questions or concerns that arise at home. ED course: VSS. Patient appears non-toxic and is tolerating po fluids. No episodes of diarrhea observed while in ED. Will discharge to home for continued monitoring. Patient unable to provide stool sample. Recommend stopping antibiotic as CT abdomen negative for acute findings and f/u with pcp. 06/28 20:32 Order name: CBC with Diff; Complete Time: 22:20 06/28 22:20 Interpretation: Normal except: WBC 12.4; MCH 26.2; RDW 16.4; NEUT A 8.8. 06/28 20:32 Order name: CMP; Complete Time: 22:20 06/28 22:21 Interpretation: Normal except: GFR 87; CA 8.2; ALB 3.3; GLOB 3.6; A/G 0.9. 06/28 20:32 Order name: Lipase; Complete Time: 22:20 06/28 20:32 Order name: Magnesium; Complete Time: 22:20 06/28 20:33 Order name: COVID-19 SARS RT PCR (Document "Date of Onset" if Symptomatic); Complete cp Time: 22:49 06/28 20:32 Order name: CT Abd/Pelvis - IV Contrast Only; Complete Time: 22:20 06/28 22:21 Interpretation: Report reviewed. 06/28 20:33 Order name: Influenza Screen (a \\T\\ B); Complete Time: 22:49 06/28 23:26 Order name: Urine Dipstick-Ancillary EDMS 06/28 20:32 Order name: IV Saline Lock; Complete Time: 21:14 06/28 20:32 Order name: Labs collected and sent; Complete Time: 21:14 06/28 20:32 Order name: Urine Dipstick-Ancillary (obtain specimen); Complete Time: 23:38 cp 06/28 20:32 Order name: NPO; Complete Time: 22:07 cp 06/28 22:23 Order name: PO challenge; Complete Time: 23:25 cp Administered Medications: 22:06 Drug: Pepcid (famotidine) 20 mg Route: IVP; Site: right forearm; kd3 23:36 Follow up: Response: No adverse reaction kd3 22:06 Drug: Zofran (Ondansetron) 4 mg Route: IVP; Site: right forearm; kd3 23:36 Follow up: Response: No adverse reaction kd3 22:06 Drug: NS 0.9% 500 ml Route: IV; Rate: calculated rate; Site: right forearm; kd3 23:25 Follow up: IV Status: Completed infusion kd3 23:36 Follow up: Response: No adverse reaction; IV Status: Completed infusion kd3 Disposition: 06/29 05:25 Co-signature as Attending Physician, Chao Aponte MD. mh7 Disposition Summary: 06/28/21 23:25 Discharge Ordered Location: Home cp Problem: new cp Symptoms: have improved cp Condition: Stable cp Diagnosis - Diarrhea, unspecified cp Followup: cp - With: Private Physician - When: 1 - 2 days - Reason: Recheck today's complaints Discharge Instructions: - Discharge Summary Sheet cp - Food Choices to Help Relieve Diarrhea, Adult cp - Diarrhea, Adult cp - Nausea, Adult cp Forms: - Medication Reconciliation Form cp - Thank You Letter cp - Antibiotic Education cp - Prescription Opioid Use cp Prescriptions: - Zofran 4 mg Oral Tablet - take 1 tablet by ORAL route every 12 hours As needed; 20 tablet; Refills: 0, cp Product Selection Permitted Signatures: Dispatcher [employer] EDCharly Lorezno MD MD cha Page, Corey, PA PA cp Blaine Valverde RN RN ll1 Chao Aponte MD MD mh7 Jazmyn Sheridan RN RN kd3 Corrections: (The following items were deleted from the chart) 06/28 20:25 18:52 before being seen by provider roxanna cp 20:25 18:52 unknown roxanna cp 22:21 22:20 Normal except: GFR 87. cp cp 23:28 22:23 C.difficile GDH Ag \\T\\ Toxin AB+LAB.BRZ ordered. EDMS EDMS 20:33 UA MICROSCOPIC+U.LAB.BRZ ordered. EDMS EDMS 22:23 Occult Blood+BA.LAB.BRZ ordered. EDMS EDMS 22:23 Ova and Parasites+MR.LAB.BRZ ordered. EDMS EDMS 22:23 Rotavirus Antigen+BA.LAB.BRZ ordered. EDMS EDMS 22:23 Stool Culture+BA.LAB.BRZ ordered. EDMS EDMS
--- NOTE | 2021-06-28 18:53 | ER ---
Nurse's Notes [facility] Name: Erika Jacobson Age: 86 yrs Sex: Female : 1935 Arrival Date: 06/28/2021 Time: 17:00 Bed 11 Private MD: Diagnosis: Diarrhea, unspecified Presentation: 06/28 17:13 Chief complaint: Patient's son or daughter states: reports diarrhea x 3 days sometimes ll1 up to 20 time daily reports liquid in nature. reports began in [facility] on Monday after drinking a beverage on Monday. Did go to MD in [facility] and was given an antibiotic unknown name. Coronavirus screen: Vaccine status: Patient reports receiving the 2nd dose of the covid vaccine. Ebola Screen:. Risk Assessment: Do you want to hurt yourself or someone else? Patient reports no desire to harm self or others. Onset of symptoms was June 26, 2021. 17:13 Method Of Arrival: Ambulatory ll1 17:13 Acuity: ISHAN 3 ll1 23:09 Initial Sepsis Screen: Does the patient meet any 2 criteria? No. Patient's initial kd3 sepsis screen is negative. Does the patient have a suspected source of infection? No. Patient's initial sepsis screen is negative. Triage Assessment: 23:09 General: Appears in no apparent distress. Behavior is calm, cooperative. Pain: Denies kd3 pain. GI: Bowel sounds present X 4 quads. Historical: - Home Meds: 17:20 amlodipine 5 mg tab 1 tab once daily [Active]; aspirin 81 mg Oral chew 1 tab once daily ll1 [Active]; atorvastatin 40 mg Oral tab 1 tab once daily [Active]; losartan 100 mg Oral tab 1 tab once daily [Active]; ventolin inhaler [Active]; - PMHx: 17:20 Asthma; CVA; Hyperlipidemia; Hypertension; ll1 - PSHx: 17:20 choleycestectomy; kidney stones; ll1 - Immunization history:: Client reports receiving the 2nd dose of the Covid vaccine, Pneumococcal vaccine is up to date, Flu vaccine is up to date. - Social history:: Smoking status: Patient denies any tobacco usage or history of. Screenin:08 Abuse screen: Denies threats or abuse. Denies injuries from another. Nutritional kd3 screening: No deficits noted. Tuberculosis screening: No symptoms or risk factors identified. Fall Risk IV access (20 points). Assessment: 23:09 GI: Abd is soft X 4 quads. kd3 23:09 Reassessment: pt has been notified of needing stool and urine sample. General: Appears kd3 in no apparent distress. Behavior is calm, cooperative. GI: Bowel sounds present X 4 quads. Abd is soft X 4 quads. Vital Signs: 17:13 BP 143 / 57; Pulse 78; Resp 20; Temp 98.1(O); Pulse Ox 98% on R/A; Pain 0/10; ll1 17:21 BP 143 / 57; Pulse 74; Resp 20; Temp 98.1(O); Pulse Ox 99% on R/A; Pain 0/10; ll1 23:37 BP 135 / 52; Pulse 78; Resp 16; Pulse Ox 99% on R/A; kd3 ED Course: 17:00 Patient arrived in ED. mr 17:20 Triage completed. ll1 20:25 Charly Minaya PA is PHCP. cp 20:25 Chao Aponte MD is Attending Physician. cp 21:00 Jazmyn Sheridan RN is Primary Nurse. kd3 21:15 Inserted saline lock: 22 gauge in right forearm, using aseptic technique. Blood ds4 collected. 21:25 Influenza Screen (a \\T\\ B) Sent. kd3 21:25 COVID-19 SARS RT PCR (Document "Date of Onset" if Symptomatic) Sent. kd3 21:54 CT Abd/Pelvis - IV Contrast Only In Process Unspecified. EDMS 23:09 Arm band placed on right wrist. kd3 23:09 Patient has correct armband on for positive identification. kd3 23:37 No provider procedures requiring assistance completed. IV discontinued, intact, kd3 bleeding controlled, No redness/swelling at site. Pressure dressing applied. Administered Medications: 22:06 Drug: Pepcid (famotidine) 20 mg Route: IVP; Site: right forearm; kd3 23:36 Follow up: Response: No adverse reaction kd3 22:06 Drug: Zofran (Ondansetron) 4 mg Route: IVP; Site: right forearm; kd3 23:36 Follow up: Response: No adverse reaction kd3 22:06 Drug: NS 0.9% 500 ml Route: IV; Rate: calculated rate; Site: right forearm; kd3 23:25 Follow up: IV Status: Completed infusion kd3 23:36 Follow up: Response: No adverse reaction; IV Status: Completed infusion kd3 Medication: 23:09 VIS not applicable for this client. kd3 Outcome: 18:52 Patient left the ED. [facility] 23:25 Discharge ordered by . cp 23:37 Discharged to home ambulatory. kd3 23:37 Condition: stable 23:37 Discharge instructions given to patient, family, Instructed on discharge instructions, follow up and referral plans. medication usage, Demonstrated understanding of instructions, follow-up care, medications, Prescriptions given X 1. 23:38 Patient left the ED. kd3 Signatures: Dispatcher [employer] EDMS Charly Guo MD MD cha Rivera, [facility] Lopez Alan ds4 Charly Minaya, Blaine Glass cp, RN RN ll1 Jazmyn Sheridan RN RN kd3
[2021-06-28 19:13] VITALS: TEMP 98.1
[2021-06-28 19:16] VITALS: O2SAT 99
[2021-06-28 21:14] LABS: Absolute Lymphocytes (CBC) 2.6 K/uL (0.7-4.9); Hematocrit 38.9 % (36.0-45.0); Lymphocytes % 21.1 % (15.3-44.8); MPV 7.8 fL (7.6-11.3); RBC Red Blood Cell Count 4.83 M/uL (3.86-4.86)
[2021-06-28 21:28] LABS: Albumin 3.3 g/dL (3.4-5.0); Bilirubin Total 0.4 mg/dL (0.2-1.0); Magnesium 2.1 mg/dL (1.8-2.4); Potassium 4.2 mmol/L (3.5-5.1); Protein, Total 6.9 g/dL (6.4-8.2)
[2021-06-28] MEDS ORDERED: NA CHLORIDE 0.9% 500 ML ONE (21:55)
[2021-06-28] MEDS ORDERED: ONDANSETRON 4 MG/2 ML VIAL ONE (21:55)
[2021-06-28] MEDS ORDERED: FAMOTIDINE 20 MG/2 ML VIAL IV ONE (21:55)
--- NOTE | 2021-06-28 22:04 | RAD REPORT ---
EXAM DESCRIPTION: CTAbdomen Pelvis W Contrast - 06/28/2021 9:52 pm CLINICAL HISTORY: Abdominal pain. Diarrhea COMPARISON: Abdomen Pelvis W Contrast dated 07/08/2019 TECHNIQUE: Biphasic CT imaging of the abdomen and pelvis was performed with 100 ml non-ionic IV cont rast. All CT scans are performed using dose optimization technique as appropriate and may include automated exposure control or mA/KV adjustment according to patient size. FINDINGS: The lung bases are clear.Cholecystectomy. The liver, spleen, pancreas, adrenal glands and kidneys are within normal limits. No bowel obstruction, free air, free fluid or abscess. The appendix is not identified as a discrete structure, however, no secondary findings of appendicitis are identified. No evidence of significan t lymphadenopathy. No suspicious bony findings. IMPRESSION: No acute intra-abdominal or pelvic finding.
[2021-06-28 23:26] LABS: Urine Blood Trace-lysed (Negative); Urine Glucose Negative (Negative); Urine Protein Negative (Negative); Urine Specific Gravity <=1.005 (1.005-1.030)
[2021-06-28 23:52] VITALS: BP 135/52
== END 2021-06-28 23:38 | disposition home or self-care (01) ==
LOC: ER 16:58
DX: R19.7 Diarrhea, unspecified (principal); I10 Essential (primary) hypertension; E78.5 Hyperlipidemia, unspecified; Z86.73 Personal history of transient ischemic attack (TIA), and cerebral infarction without residual deficits
CPT/HCPCS: 85025; 36415; 83735; 81003; 83690; 80053; 87804 ×2; 74177; U0003; Q9967; J7040; J2405; J3490; 96361; 96374; 96375; 99284

== ENCOUNTER 2021-08-13 18:26 | Observation (INO) | payer OTHER ==
[2021-08-13 19:08] LABS: Absolute Lymphocytes (CBC) 2.3 K/uL (0.7-4.9); Hematocrit 33.3 % (36.0-45.0); Lymphocytes % 30.2 % (15.3-44.8); MCV 83.5 fL (80-100); RBC Red Blood Cell Count 3.99 M/uL (3.86-4.86)
[2021-08-13 19:27] LABS: Potassium 4.6 mmol/L (3.5-5.1); Troponin High Sensitivity 25.4 pg/mL (<58.9)
[2021-08-13 20:49] LABS: Urine Blood Trace-intact (Negative); Urine Glucose Negative (Negative); Urine Protein Negative (Negative)
--- NOTE | 2021-08-13 21:06 | RAD REPORT ---
EXAM DESCRIPTION: CT - Head C Spine Mpr Wo Con - 08/13/2021 8:54 pm CLINICAL HISTORY: Head and neck injury status post fall. Head and neck pain COMPARISON: 2019 MRI TECHNIQUE: Computed axial tomography of the head and cervical spine was obtained. Sagittal and coronal reconstruction was performed. All CT scans are performed using dose optimization technique as appropriate and may include automated exposure control or mA/KV adjustment according to patient size. FINDINGS: An intracranial bleed is not seen. The ventricles are normal in caliber. Old right cerebral infarction. Small findings cyst. An extra-axial fluid collection is not noted.Fluid within the visualized sinuses and mastoids is not seen A cervical fracture is not visualized. No dislocation is noted. IMPRESSION: No acute intracranial abnormality is seen. A cervical fracture is not visualized. If the patient continues to have symptoms to suggest intracra nial /spinal cord pathology then MRI would be recommended
--- NOTE | 2021-08-13 21:07 | RAD REPORT ---
EXAM DESCRIPTION: Minesh Single View08/13/2021 8:54 pm CLINICAL HISTORY: cough COMPARISON: April 2021 FINDINGS: The lungs appear clear of acute infiltrate. The heart is normal size IMPRESSION: No acute abnormalities displayed
[2021-08-13] MEDS ORDERED: CEFTRIAXONE 1000 MG/VIAL ONE (21:09)
[2021-08-13] MEDS ORDERED: ASPIRIN 81 MG CHEWABLE TABLET ONE (21:09)
[2021-08-13] MEDS ORDERED: NA CHLORIDE 0.9% 50 ML ONE (21:09)
--- NOTE | 2021-08-13 21:14 | ER ---
Nurse's Notes [facility] Name: Erika Jacobson Age: 86 yrs Sex: Female : 1935 Arrival Date: 08/13/2021 Time: 18:28 Bed 3 Private MD: Diagnosis: Syncope Near;Fall on same level, unspecified;Unspecified injury of head, initial encounter;Strain of muscle, fascia and tendon at neck level, initial encounter;UTI/ Urinary tract infection, site not specified;Weakness Presentation: 08/13 18:34 Chief complaint: EMS states: FOUND UNCONSCIOUS AT HOME. Coronavirus screen: At this bp time, the client does not indicate any symptoms associated with coronavirus-19. Ebola Screen: No symptoms or risks identified at this time. Initial Sepsis Screen: Does the patient meet any 2 criteria? No. Patient's initial sepsis screen is negative. Does the patient have a suspected source of infection? No. Patient's initial sepsis screen is negative. Risk Assessment: Do you want to hurt yourself or someone else? Patient reports no desire to harm self or others. Onset of symptoms was August 13, 2021 at 16:00. Care prior to arrival: IV initiated. 18 GA, in the left hand, Glucose check: 230. 18:34 Method Of Arrival: EMS: [facility] bp 18:34 Acuity: ISHAN 2 bp Triage Assessment: 18:37 General: Appears in no apparent distress. comfortable, obese, Behavior is cooperative, bp appropriate for age, anxious. Pain: Complains of pain in scalp. EENT: No deficits noted. Neuro: Reports a syncopal episode. Cardiovascular: Rhythm is sinus rhythm. Respiratory: No deficits noted. GI: No signs and/or symptoms were reported involving the gastrointestinal system. : No signs and/or symptoms were reported regarding the genitourinary system. Derm: No deficits noted. Musculoskeletal: No deficits noted. Historical: - Allergies: 18:29 No Known Allergies; jl7 - Home Meds: 18:37 amlodipine 5 mg tab 1 tab once daily [Active]; aspirin 81 mg Oral chew 1 tab once daily bp [Active]; atorvastatin 40 mg Oral tab 1 tab once daily [Active]; losartan 100 mg Oral tab 1 tab once daily [Active]; ventolin inhaler [Active]; - PMHx: 18:29 Asthma; CVA; Hyperlipidemia; Hypertension; jl7 - PSHx: 18:29 choleycestectomy; kidney stones; jl7 - Immunization history:: Adult Immunizations up to date. - Social history:: Smoking status: Patient denies any tobacco usage or history of. - Family history:: not pertinent. Screenin:41 Abuse screen: Denies threats or abuse. Denies injuries from another. Nutritional bp screening: No deficits noted. Tuberculosis screening: No symptoms or risk factors identified. Fall Risk None identified. Assessment: 18:38 General: SEE TRIAGE NOTE. Neuro: Level of Consciousness is awake, alert, obeys bp commands, Oriented to Appropriate for age. Cardiovascular: Rhythm is sinus rhythm. 20:00 Reassessment: No changes from previously documented assessment. Patient and/or family ll3 updated on plan of care and expected duration. Pain level reassessed. Patient is alert, oriented x 3, equal unlabored respirations, skin warm/dry/pink. 21:00 Reassessment: No changes from previously documented assessment. Patient and/or family ll3 updated on plan of care and expected duration. Pain level reassessed. Patient is alert, oriented x 3, equal unlabored respirations, skin warm/dry/pink. 22:43 Reassessment: No changes from previously documented assessment. Patient and/or family ll3 updated on plan of care and expected duration. Pain level reassessed. Patient is alert, oriented x 3, equal unlabored respirations, skin warm/dry/pink. Vital Signs: 18:40 BP 110 / 48; Pulse 64; Resp 16; Temp 98; Pulse Ox 99% ; bp 20:00 BP 127 / 55; Pulse 63; Resp 17; Pulse Ox 99% ; ll3 21:00 BP 124 / 94; Pulse 65; Resp 16; Pulse Ox 97% ; ll3 22:43 BP 133 / 79; Pulse 63; Resp 17; Pulse Ox 98% ; ll3 ED Course: 18:28 Patient arrived in ED. eb 18:30 Francesco Figueroa MD is Attending Physician. kdr 18:34 Rogelio Menendez, VIVIENNE is Primary Nurse. bp 18:36 Triage completed. bp 18:37 Arm band placed on. bp 18:38 Maintain EMS IV. Dressing intact. Good blood return noted. Site clean \T\ dry. Gauge \T\ bp site: 18 GA LEFT HAND. 18:41 Patient has correct armband on for positive identification. Bed in low position. Call bp light in reach. Side rails up X2. Adult w/ patient. 18:45 EKG done, by ED staff, reviewed by Francesco Figueroa MD. 3 18:54 Initial lab(s) drawn, by me, sent to lab. Missed attempt(s): 22 gauge in left dh3 antecubital area. Bleeding controlled, band aid applied, catheter tip intact. 19:20 Attending Physician role handed off by Francesco Figueroa MD [facility] 19:20 Charly Guo MD is Attending Physician. roxanna 20:55 Chest Single View XRAY In Process Unspecified. EDMS 20:56 CT Head C Spine In Process Unspecified. EDMS 21:12 Chantale Garcia MD is Hospitalizing Provider. roxanna 22:48 No provider procedures requiring assistance completed. Patient admitted, IV remains in ll3 place. Administered Medications: 21:19 Drug: Aspirin Chewable Tablet 81 mg Route: PO; lg3 21:20 Follow up: Response: No adverse reaction lg3 21:20 Drug: Rocephin (cefTRIAXone) 1 grams Route: IV; Rate: per protocol; Site: left hand; lg3 21:20 Follow up: Response: No adverse reaction; IV Status: Completed infusion; IV Intake: [id number] 21:32 Drug: foLIC Acid 1 mg Route: IVPB; Site: left hand; ll3 21:33 Drug: NS 0.9% 1000 ml Route: IV; Rate: 1 bolus; Site: left hand; ll3 Medication: 21:39 VIS not applicable for this client. ll3 Intake: 21:20 IV: 50ml; Total: 50ml. lg3 Outcome: 21:13 Decision to Hospitalize by Provider. roxanna 22:57 Admitted to Med/surg accompanied by nurse, via stretcher, room 224, with chart, Report ll3 called to VIVIENNE Thurston 22:57 Condition: stable 22:57 Discharge instructions given to patient, family, Instructed on the need for admit, Demonstrated understanding of instructions. 23:02 Patient left the ED. ll3 Signatures: Dispatcher [employer] EDHI Charly Guo MD MD cha Rittger, Kevin, MD MD kdr Leal, Jahala, RN RN jl7 Kisha Sharp [facility] Rogelio Menendez, RN RN bp [place] Lacie, RN RN lg3 Melissa Nation, RN RN ll3
--- NOTE | 2021-08-13 21:14 | EDPHYS ---
Physician Documentation [facility] Name: Erika Jacobson Age: 86 yrs Sex: Female : 1935 Arrival Date: 08/13/2021 Time: 18:28 Bed 3 Private MD: ED Physician Charly Guo HPI: 08/13 20:11 This 86 yrs old Female presents to ER via EMS with complaints of Syncope. roxanna 20:11 The patient has experienced near-syncope, almost passed out, felt dizzy. Onset: The roxanna symptoms/episode began/occurred at 17:30. Duration: This was a single episode, that lasted 10 second(s). Context: the episode(s) was witnessed, by family. Associated injury: Head/face: Neck:. Associated signs and symptoms: Pertinent positives: headache, lightheadedness. Current symptoms: Currently, the patient is not experiencing any symptoms, the patient feels back to baseline. The patient has experienced similar episodes in the past, several times. Historical: - Allergies: 18:29 No Known Allergies; jl7 - Home Meds: 18:37 amlodipine 5 mg tab 1 tab once daily [Active]; aspirin 81 mg Oral chew 1 tab once daily bp [Active]; atorvastatin 40 mg Oral tab 1 tab once daily [Active]; losartan 100 mg Oral tab 1 tab once daily [Active]; ventolin inhaler [Active]; - PMHx: 18:29 Asthma; CVA; Hyperlipidemia; Hypertension; jl7 - PSHx: 18:29 choleycestectomy; kidney stones; jl7 - Immunization history:: Adult Immunizations up to date. - Social history:: Smoking status: Patient denies any tobacco usage or history of. - Family history:: not pertinent. ROS: 20:11 Constitutional: Negative for fever, chills, and weight loss, Eyes: Negative for injury, roxanna pain, redness, and discharge, ENT: Negative for injury, pain, and discharge, Neck: Negative for injury, pain, and swelling, Cardiovascular: Negative for chest pain, palpitations, and edema, Respiratory: Negative for shortness of breath, cough, wheezing, and pleuritic chest pain, Abdomen/GI: Negative for abdominal pain, nausea, vomiting, diarrhea, and constipation, Back: Negative for injury and pain, : Negative for injury, bleeding, discharge, and swelling, MS/Extremity: Negative for injury and deformity, Skin: Negative for injury, rash, and discoloration, Psych: Negative for depression, anxiety, suicide ideation, homicidal ideation, and hallucinations, Allergy/Immunology: Negative for hives, rash, and allergies, Endocrine: Negative for neck swelling, polydipsia, polyuria, polyphagia, and marked weight changes, Hematologic/Lymphatic: Negative for swollen nodes, abnormal bleeding, and unusual bruising. 20:11 Neuro: Positive for weakness. Exam: 18:59 ECG was reviewed by the Attending Physician. kdr 20:11 Constitutional: This is a well developed, well nourished patient who is awake, alert, roxanna and in no acute distress. Head/Face: Normocephalic, atraumatic. Eyes: Pupils equal round and reactive to light, extra-ocular motions intact. Lids and lashes normal. Conjunctiva and sclera are non-icteric and not injected. Cornea within normal limits. Periorbital areas with no swelling, redness, or edema. ENT: Nares patent. No nasal discharge, no septal abnormalities noted. Tympanic membranes are normal and external auditory canals are clear. Oropharynx with no redness, swelling, or masses, exudates, or evidence of obstruction, uvula midline. Mucous membranes moist. Neck: Trachea midline, no thyromegaly or masses palpated, and no cervical lymphadenopathy. Supple, full range of motion without nuchal rigidity, or vertebral point tenderness. No Meningismus. Chest/axilla: Normal chest wall appearance and motion. Nontender with no deformity. No lesions are appreciated. Cardiovascular: Regular rate and rhythm with a normal S1 and S2. No gallops, murmurs, or rubs. Normal PMI, no JVD. No pulse deficits. Respiratory: Lungs have equal breath sounds bilaterally, clear to auscultation and percussion. No rales, rhonchi or wheezes noted. No increased work of breathing, no retractions or nasal flaring. Abdomen/GI: Soft, non-tender, with normal bowel sounds. No distension or tympany. No guarding or rebound. No evidence of tenderness throughout. Back: No spinal tenderness. No costovertebral tenderness. Full range of motion. Female : Normal external genitalia. Skin: Warm, dry with normal turgor. Normal color with no rashes, no lesions, and no evidence of cellulitis. MS/ Extremity: Pulses equal, no cyanosis. Neurovascular intact. Full, normal range of motion. Psych: Awake, alert, with orientation to person, place and time. Behavior, mood, and affect are within normal limits. 20:11 Neuro: Orientation: is normal, appropriate for stated age, no acute changes, Mentation: is normal, appropriate for stated age, no acute changes, Memory: is normal, appropriate for stated age, no acute changes, Cranial nerves: facial droop noted on left, with forehead spared. Cerebellar function: is grossly normal, is grossly normal based on the patient's age, no acute changes, Motor: moves all fours, Sensation: is normal, no obvious gross deficits, appropriate no acute changes, Gait: not tested. seizure activity, is not displayed by the patient. 21:18 ECG was reviewed by the Attending Physician. roxanna Vital Signs: 18:40 BP 110 / 48; Pulse 64; Resp 16; Temp 98; Pulse Ox 99% ; bp 20:00 BP 127 / 55; Pulse 63; Resp 17; Pulse Ox 99% ; ll3 21:00 BP 124 / 94; Pulse 65; Resp 16; Pulse Ox 97% ; ll3 22:43 BP 133 / 79; Pulse 63; Resp 17; Pulse Ox 98% ; ll3 MDM: 19:20 Patient medically screened. roxanna 20:19 Differential Diagnosis: cardiac arrhythmia, cerebrovascular accident, emotional roxanna response, GI bleed, idiopathic syncope, seizure, transient ischemic attack, vasovagal episode. Data reviewed: vital signs, nurses notes, EMS record, lab test result(s), EKG, radiologic studies, CT scan, plain films. Data interpreted: panel monitor: rate is 64 beats/min, rhythm is regular, Pulse oximetry: on room air is 99 %. Test interpretation: by ED physician or midlevel provider: ECG, plain radiologic studies. Counseling: I had a detailed discussion with the patient and/or guardian regarding: the historical points, exam findings, and any diagnostic results supporting the discharge/admit diagnosis, lab results, radiology results, the need for further work-up and treatment in the hospital. 08/13 18:56 Order name: Basic Metabolic Panel; Complete Time: 20:10 7 08/13 18:56 Order name: CBC with Diff; Complete Time: 20:10 jl7 08/13 18:56 Order name: Troponin HS; Complete Time: 20:10 [facility] 08/13 20:19 Order name: SARS-COV-2 RT PCR (Document "Date of Onset" if Symptomatic); Complete Time: [facility] 21:34 08/13 20:44 Order name: Urine Culture lp1 08/13 20:49 Order name: Urine Dipstick-Ancillary; Complete Time: 20:54 EDDC 08/13 18:56 Order name: EKG; Complete Time: 18:59 [facility] 08/13 18:56 Order name: Cardiac monitoring; Complete Time: 18:57 [facility] 08/13 20:10 Order name: CT Head C Spine; Complete Time: 21:09 [facility] 08/13 20:19 Order name: Chest Single View XRAY; Complete Time: 21:09 [facility] 08/13 18:56 Order name: EKG - Nurse/Tech; Complete Time: 18:57 [facility] 08/13 18:56 Order name: IV Saline Lock; Complete Time: 18:57 [facility] 08/13 18:56 Order name: Labs collected and sent; Complete Time: 18:57 [facility] 08/13 18:56 Order name: O2 Per Protocol; Complete Time: 18:57 [facility] 08/13 18:56 Order name: O2 Sat Monitoring; Complete Time: 18:57 [facility] 08/13 20:10 Order name: Urine Dipstick-Ancillary (obtain specimen); Complete Time: 20:59 roxanna EC:59 Rate is 72 beats/min. Rhythm is regular, Sinus Rhythm with Left bundle branch block. kdr QRS Shiro is Normal. AL interval is normal. QRS interval is normal. QT interval is normal. Clinical impression: NSR w/ Non-specific ST/T Changes. 21:18 Rate is 72 beats/min. Rhythm is regular. QRS Shiro is Normal. AL interval is normal. QRS roxanna interval is normal. QT interval is normal. No Q waves. T waves are Normal. No ST changes noted. Clinical impression: NSR w/ Non-specific ST/T Changes and No evidence of ischemia. Interpreted by me. Reviewed by me. Administered Medications: 21:19 Drug: Aspirin Chewable Tablet 81 mg Route: PO; lg3 21:20 Follow up: Response: No adverse reaction lg3 21:20 Drug: Rocephin (cefTRIAXone) 1 grams Route: IV; Rate: per protocol; Site: left hand; lg3 21:20 Follow up: Response: No adverse reaction; IV Status: Completed infusion; IV Intake: [id number] 21:32 Drug: foLIC Acid 1 mg Route: IVPB; Site: left hand; ll3 21:33 Drug: NS 0.9% 1000 ml Route: IV; Rate: 1 bolus; Site: left hand; ll3 Disposition Summary: 08/13/21 21:13 Hospitalization Ordered Hospitalization Status: Observation roxanna Provider: Chantale Garcia cha Location: Telemetry/MedSurg (observation) roxanna Condition: Fair roxanna Problem: new roxanna Symptoms: have improved roxanna Bed/Room Type: [facility] Room Assignment: 224(08/13/21 22:32) mw Diagnosis - Syncope Near roxanna - Fall on same level, unspecified roxanna - Unspecified injury of head, initial encounter roxanna - Strain of muscle, fascia and tendon at neck level, initial encounter roxanna - UTI/ Urinary tract infection, site not specified roxanna - Weakness roxanna Forms: - Medication Reconciliation Form roxanna - SBAR form roxanna Signatures: Dispatcher [employer] EDMallory Kimble RN RN Charly Coon MD MD cha Rittger, Kevin, MD MD kdr Leal, Jahala RN RN [id number] Rogelio Menendez RN Vani Sidhu RN RN lg3 Melissa Nation RN RN ll3 Marisol Pak PA PA sb3 Corrections: (The following items were deleted from the chart) 22: 21:13 roxanna mw
[2021-08-13] MEDS ORDERED: NA CHLORIDE 0.9% 1,000 ML ONE (21:34)
[2021-08-13] MEDS ORDERED: FOLIC ACID 5 MG/ML VIAL ONE (21:35)
--- NOTE | 2021-08-13 22:40 | P.HP ---
Certification for Inpatient Patient admitted to: Observation With expected LOS: <2 Midnights Patient will require the following post-hospital care: None Practitioner: I am a practitioner with admitting privileges, knowledge of patient current condition, hospital course, and medical plan of care. Services: Services provided to patient in accordance with Admission requirements found in Title 42 Section 412.3 of the Code of Federal Regulations <Marisol Pak - Last Filed: 08/14/21 01:24> Patient History Date of Service: 08/14/21 Reason for admission: Fall/Syncope History of Present Illness: Patient is an 86 y/o F with PMH of HTN, systolic CHF (recent echo 45-50% EF), asthma, CVA who presented to the ED via EMS after a fall/syncopal episode. Patient is [place] speaking only but family is at bedside helping communicate. They report she is very unsteady on her feet and uses a cane to walk but are not sure if she was using it today. They state she barely drinks any water. She is on several antihypertensives and may be taking them incorrectly. She has recently lost her PCP. Initial BP upon arrival was 110/48. Head CT and CXR negative for acute processes. Only significant lab finding was UTI. She was given 81 mg aspirin, rocephin, folic acid, and 1L fluid in ED. Vital signs have been stable throughout her stay. ED provider wishes to admit patient for observation. Home medications list reviewed: Yes - Past Medical/Surgical History Diabetic: No -: Hypertension -: Dyslipidemia -: CVA -: kidney stones -: Asthma -: CHF -: Cholecystectomy Psychosocial/ Personal History: Patient lives at home with her children. - Social History Smoking Status: Never smoker Alcohol use: No CD- Drugs: No Caffeine use: Yes Place of Residence: Home <Marisol Pak - Last Filed: 08/14/21 01:24> Date of Service: 08/14/21 <Chantale Garcia - Last Filed: 08/14/21 09:00> Allergies No Known Allergies Allergy (Verified 09/03/18 08:32) Home Medications: Atorvastatin Calcium [Lipitor] 40 mg PO BEDTIME #30 tab 02/25/21 Potassium Chloride 20 meq PO DAILY #30 tablet.er 02/25/21 Aspirin [Aspirin EC 81 MG] 81 mg PO DAILY 03/14/21 Albuterol Neb [Proventil 0.083% Neb Soln] 2.5 mg NEB A3HBMFJ #60 amp 05/08/21 Amlodipine [Norvasc*] 10 mg PO DAILY #30 tab 05/08/21 Carvedilol [Coreg] 12.5 mg PO BID #60 tablet 05/08/21 Cefdinir [Omnicef] 300 mg PO BID #14 capsule 05/08/21 Furosemide [Lasix*] 40 mg PO BIDL #60 tab 05/08/21 Losartan Potassium 50 mg PO BID #60 05/08/21 Losartan Potassium 50 mg PO BID #60 tablet 05/08/21 Nebulizer Accessories [Aeroneb Go] 1 each MC DAILY #1 each 05/08/21 Nebulizer [Aeroneb Go Nebulizer] 1 each MC DAILY #1 each 05/08/21 predniSONE [Prednisone] 20 mg PO BID #11 tablet 05/08/21 Review of Systems Unremarkable <Marisol Pak - Last Filed: 08/14/21 01:24> Physical Examination - Physical Exam General: Alert, In no apparent distress HEENT: Atraumatic, PERRLA, EOMI, Sclerae nonicteric Neck: Supple, 2+ carotid pulse no bruit, No LAD, Without JVD or thyroid abnormality Respiratory: Clear to auscultation bilaterally, Normal air movement Cardiovascular: Regular rate/rhythm, Normal S1 S2 Gastrointestinal: Normal bowel sounds, No tenderness Musculoskeletal: No tenderness Integumentary: No rashes Neurological: Normal speech, Normal strength at 5/5 x4 extr, Normal tone, Normal affect - Studies Laboratory Data (last 24 hrs) 08/13/21 18:54: WBC 7.8, Hgb 11.2 L, Hct 33.3 L, Plt Count 254 08/13/21 18:54: Sodium 136, Potassium 4.6, BUN 17, Creatinine 0.73, Glucose 164 H <Marisol Pak - Last Filed: 08/14/21 01:24> - Studies Laboratory Data (last 24 hrs) 08/13/21 18:54: WBC 7.8, Hgb 11.2 L, Hct 33.3 L, Plt Count 254 08/13/21 18:54: Sodium 136, Potassium 4.6, BUN 17, Creatinine 0.73, Glucose 164 H <Chantale Garcia - Last Filed: 08/14/21 09:00> Assessment and Plan - Problems (Diagnosis) (1) Fall Current Visit: Yes Status: Acute Qualifiers: Encounter type: initial encounter Qualified Code(s): W19.XXXA - Unspecified fall, initial encounter (2) Near syncope Current Visit: Yes Status: Acute (3) Acute on chronic diastolic heart failure Current Visit: Yes Status: Chronic (4) Dyslipidemia Current Visit: Yes Status: Chronic (5) Hypertension Current Visit: Yes Status: Acute Qualifiers: Hypertension type: primary hypertension Qualified Code(s): I10 - Essential (primary) hypertension - Plan -Unclear if fall or syncope occurred first. Most likely blood pressure related, causing fall. Cardiology consulted -Orthostatic VS ordered -Monitor on telemetry -Continue antibiotics for UTI -Physical therapy ordered -Patient education regarding fluid intake -Monitor and replete electrolytes per protocol -Reconcile and continue home medications -Lovenox for VTE ppx -Full code Patient's family would like referral to a new PCP upon discharge. Discharge Plan: Home Plan to discharge in: 24 Hours - Advance Directives Does patient have a Living Will: No Does patient have a Durable POA for Healthcare: No - Code Status/Comfort Care Code Status Assessed: Yes (Full) Critical Care: No Time Spent Managing Pts Care (In Minutes): 50 <Marisol Pak - Last Filed: 08/14/21 01:24> Date of Service: 08/14/21 Subjective: HPI as mentioned above Physical Examination: Vitals: Afebrile vital signs are stable Physical exam: Cardiovascular: Within normal limits. Lungs: Within normal limits Abdomen: Within normal limits Neuro: Awake, alert, oriented to person place and time Assessment: 1. Syncope Plan: 1. Continue with current plan of care as mentioned above <Chantale Garcia - Last Filed: 08/14/21 09:00>
[2021-08-13] MEDS ORDERED: ONDANSETRON 4 MG/2 ML VIAL IV PRN (23:49)
[2021-08-13] MEDS ORDERED: ACETAMINOPHEN 500 MG TAB PO PRN (23:49)
[2021-08-13] MEDS ORDERED: ALBUTEROL 2.5 MG/3 ML NEB SOL NEB PRN (23:49)
[2021-08-14 01:18] VITALS: BMI 24.9
[2021-08-14 01:35] VITALS: O2SAT 96
[2021-08-14 05:39] LABS: Absolute Lymphocytes (CBC) 2.4 K/uL (0.7-4.9); Hematocrit 30.8 % (36.0-45.0); Lymphocytes % 28.2 % (15.3-44.8); MCV 83.7 fL (80-100); MPV 8.3 fL (7.6-11.3); RBC Red Blood Cell Count 3.68 M/uL (3.86-4.86)
[2021-08-14 06:03] LABS: Magnesium 2.3 mg/dL (1.8-2.4); Potassium 3.8 mmol/L (3.5-5.1); Thyroid Stimulating Hormone 2.38 uIU/mL (0.360-3.740)
[2021-08-14 08:49] VITALS: BP 138/57; TEMP 97.6
[2021-08-14] MEDS ORDERED: ENOXAPARIN 40 MG/0.4 ML SQ SCH (09:00)
[2021-08-14] MEDS ORDERED: CEFTRIAXONE 1,000 MG in NA CHLORIDE 0.9% 50 ML IVPB SCH (09:00)
--- NOTE | 2021-08-14 09:03 | P.DS ---
Discharge Date: 08/14/21 Disposition: ROUTINE DISCHARGE Discharge Condition: GOOD Reason for Admission: Fall/Syncope Brief History of Present Illness: Patient is an 86-year-old female who came to the hospital with syncopal episode. Patient signed found her on the couch and she was having vertigo. They called EMS. She was brought into the ER. Work-up has been essentially unremarkable. No EKG abnormalities troponin was negative. She has been on telemetry with no significant abnormalities. She was found to have a UTI. She was admitted for observation. Hospital Course: Patient has done well during hospital stay. She is clinically feeling much better. She is stable for discharge on oral antibiotic therapy. She will follow-up with cardiology as an outpatient. She will also need to follow-up with PCP in 1 week. Vital Signs/Physical Exam: Temp Pulse Resp BP Pulse Ox 97.6 F 56 14 138/57 L 96 08/14/21 08:00 08/14/21 08:00 08/14/21 08:00 08/14/21 08:00 08/14/21 08:00 General: Alert, In no apparent distress, Oriented x3 Laboratory Data at Discharge: WBC 8.5 K/uL (4.3-10.9) 08/14/21 05:05 Hgb 10.3 g/dL (12.0-15.0) L 08/14/21 05:05 Hct 30.8 % (36.0-45.0) L 08/14/21 05:05 Plt Count 239 K/uL (152-406) 08/14/21 05:05 Sodium 138 mmol/L (136-145) 08/14/21 05:05 Potassium 3.8 mmol/L (3.5-5.1) 08/14/21 05:05 BUN 12 mg/dL (7-18) 08/14/21 05:05 Creatinine 0.42 mg/dL (0.55-1.3) L 08/14/21 05:05 Glucose 105 mg/dL (74-106) 08/14/21 05:05 Magnesium 2.3 mg/dL (1.8-2.4) 08/14/21 05:05 Triglycerides 186 mg/dL (<150) H 08/14/21 05:05 Cholesterol 101 mg/dL (<200) 08/14/21 05:05 HDL Cholesterol 32 mg/dL (40-60) L 08/14/21 05:05 Cholesterol/HDL Ratio 3.16 08/14/21 05:05 Home Medications: Atorvastatin Calcium [Lipitor] 40 mg PO BEDTIME #30 tab 02/25/21 Potassium Chloride 20 meq PO DAILY #30 tablet.er 02/25/21 Aspirin [Aspirin EC 81 MG] 81 mg PO DAILY 03/14/21 Albuterol Neb [Proventil 0.083% Neb Soln] 2.5 mg NEB Q4HBRMQ #60 amp 05/08/21 Amlodipine [Norvasc*] 10 mg PO DAILY #30 tab 05/08/21 Carvedilol [Coreg] 12.5 mg PO BID #60 tablet 05/08/21 Furosemide [Lasix*] 40 mg PO BIDL #60 tab 05/08/21 Losartan Potassium 50 mg PO BID #60 05/08/21 Losartan Potassium 50 mg PO BID #60 tablet 05/08/21 Nebulizer Accessories [Aeroneb Go] 1 each MC DAILY #1 each 05/08/21 Nebulizer [Aeroneb Go Nebulizer] 1 each MC DAILY #1 each 05/08/21 predniSONE [Prednisone] 20 mg PO BID #11 tablet 05/08/21 Cefdinir [Omnicef] 300 mg PO BID #14 capsule 08/14/21 New Medications: Cefdinir [Omnicef] 300 mg PO BID #14 capsule Physician Discharge Instructions: -DC IV and DC home -Follow-up with PCP in 1 to 2 weeks -Follow-up with Cardiology in 1 to 2 weeks -Please call Dr. Garcia at [phone] if any questions regarding hospital stay -Please call nursing station at [phone] if any nursing or medication questions -Return to the emergency room if symptoms worsen Diet: AHA Activity: Fall precautions Followup: OOT,OOT [Primary Care Provider] - Time spent managing pt's care (in minutes): 35
--- NOTE | 2021-08-14 23:13 | CON ---
Date of Consultation: 08/14/2021 Reason For Consultation: Syncope. History Of Present Illness: The patient is an 86-year-old [place] woman without any significa nt past cardiac history. She has had an echocardiogram in June of 2021 with an ejection fraction of 4 5%-50% She came in with syncope. She takes many medications. She denied any chest pain, nausea, vom iting, diaphoresis, PND, orthopnea, pedal edema, or palpitations. Denied any fever or chills. Her s yncope was sudden, upon standing from her bed. Past Medical History: Includes asthma, history of CVA, hypertension, dyslipidemia, and obesity. Allergies: NONE. Review of Systems: Negative. Social History: Negative. Family History: Noncontributory. Medications: At home include Norvasc, Coreg, losartan, Lasix, Lipitor, potassium, prednisone, and in halers as well as aspirin. Physical Examination: General: She was very pleasant. Vital Signs: Stable, afebrile. HEENT: Negative. Neck: Supple. No bruit, lymphadenopathy, JVD, or thyromegaly. Chest: Clear. Cardiac: Exam reveals a regular rhythm and rate with no murmurs, gallops, or rubs. Abdomen: Obese, but benign. Extremities: Trace edema. Pulses were present distally bilaterally in the lower extremities. Neurologic: She was nonfocal. Skin: Dry and intact. Diagnostic Data: All within normal limits. Chest x-ray was negative. Ejection fraction was 50% in June of 2021. Impression And Plan: Syncope, most likely secondary to orthostatic hypotension. I think once she go es home, we will have to stop her amlodipine. I think she needs to have an outpatient event monitor, echocardiogram and a carotid Doppler, but she can go home today if it is okay with Dr. Garcia. Her ot her problems including asthma, on inhalers; history of cerebrovascular accident, for which she takes aspirin and she also has a history of hypertension and hyperlipidemia are well controlled at this i nt. YVES/LEEANNE Voice ID: [id number] Report ID: [id number]
--- NOTE | 2021-08-17 08:05 | EKG ---
Test Date: 2021-08-13 Test Time: 18:28:37 Sound Effects Manager: TOMASA MEASUREMENT RESULTS: Intervals: Rate: 72 IA: 152 QRSD: 130 QT: 462 QTc: 505 [place]: P: 66 IA: 152 QRS: -26 T: 102 INTERPRETIVE STATEMENTS: Normal sinus rhythm with sinus arrhythmia Left bundle branch block Abnormal ECG Compared to ECG 05/05/2021 09:00:31 Left-axis deviation no longer present Electronically Signed On 08-17-21 07:56:28 CDT by Marcel Dean
== END 2021-08-14 11:43 | disposition home or self-care (01) ==
LOC: ER 18:26 → ERHOLD 22:17 → 2ND 22:45
PROVIDERS: ADMIT Hospitalist; ATTEND Hospitalist
DX: R55 Syncope and collapse (principal); N39.0 Urinary tract infection, site not specified; S09.90XA Unspecified injury of head, initial encounter; S16.1XXA Strain of muscle, fascia and tendon at neck level, initial encounter; W18.30XA Fall on same level, unspecified, initial encounter; R53.1 Weakness; I11.0 Hypertensive heart disease with heart failure; I50.33 Acute on chronic diastolic (congestive) heart failure; J45.909 Unspecified asthma, uncomplicated; E78.5 Hyperlipidemia, unspecified; E66.9 Obesity, unspecified; Z68.24 Body mass index [BMI] 24.0-24.9, adult; Z20.822 Contact with and (suspected) exposure to COVID-19; Z79.82 Long term (current) use of aspirin; Z79.52 Long term (current) use of systemic steroids; Z79.899 Other long term (current) drug therapy; Z86.73 Personal history of transient ischemic attack (TIA), and cerebral infarction without residual deficits; Z87.442 Personal history of urinary calculi; Z90.49 Acquired absence of other specified parts of digestive tract
CPT/HCPCS: 36415; 70450; 71045; 72125; 80048; 80061; 81003; 83735; 84443; 84484; 85025; 87077; 87086; 87088; 87186; 93005; 94760; 96374; 96375; 97116; 97161; 97530; 99285; G0378; J1650; J7030; U0003

== ENCOUNTER 2021-10-01 10:07 | Emergency (ER) | payer OTHER ==
--- OUTSIDE RECORDS SUMMARY | 2021-10-01 10:12 | XMS REPORT | Continuity of Care Document ---
:1935 Author Organization [facility] t Address [address] [place] [address] Care Team Providers Name Role Phone Carmelita MURGUIA, Wu Primary Care Physician LILIANA LI Attending Clinician Unavailable MICHAEL MATT Attending Clinician Unavailable MICHAEL MATT Attending Clinician Unavailable Angela Rodas MD Attending Clinician Adams Germain MD Attending Clinician ADAMS GERMAIN Attending Clinician Unavailable Beto MURGUIA, Daniel Attending Clinician Provider, [facility] Attending Clinician Unavailable Sarahi MURGUIA, Johan Goyal Attending Clinician Ethan Scott DO Attending Clinician Doctor Unassigned, Nectar Attending Clinician Unavailable 1, [facility] Attending Clinician Unavailable Lab, [facility] Fam Pob I Attending Clinician Unavailable Renata Thacker Attending Clinician Unavailable Mirella Villalobos Attending Clinician [phone] Shy Miller Attending Clinician Unavailable LILIANA LI Admitting Clinician Unavailable ADRIANA HARTMANN Admitting Clinician Unavailable Payers Payer Name Policy Type Policy Number Effective Date Expiration Date S kim Sliding Fee - Cat P [id number] 2019 2020 1 00:00:00 00:00:00 AARP/MEDICARE [id number] 2019 COMPLETE 00:00:00 WELLMED/AARP [id number] 2019 MEDICARE 00:00:00 ADVANTAGE MEDICAID [facility] [id number] 2017 00:00:00 COVID19 [id number] Problems Condition Condition Condition Status Onset Resolution Last Treating Co mments Source Name Details Category Date Date Treatment Clinician Date Obesity Obesity Disease Active Univers (BMI (BMI 5-28 ity of 30-39.9) 30-39.9) 00:00: [place] 00 Medical Branch Uses Uses Disease Active Univers Kuwaiti as Kuwaiti as 5-28 it y of primary primary 00:00: [place] spoken spoken 00 Medical language language Branch History of History of Disease Active U nivers CVA CVA 5-28 ity of (cerebrova (cere[place] sc[place] scular 00 Medical accident) accident) Bran ch Difficulty Difficulty Disease Active U nivers walking walking 5-28 ity of 00:00: [place] 00 Medical Branch Right Right Disease Active Univers lower lower 5-28 ity of quadrant quadrant 00:00: [place] abdominal abdominal 00 Medi angelica pain pain Branch Venous Venous Disease Active 2020-02 Univers reflux reflux 2-09 ity of 00:00: [place] 00 Medical Branch Edema of Edema of Disease Active 2020-02 Unive rs both legs both legs 2- ity of 00:00: [place] 00 Medical Branch Decreased Decreased Disease Active 2020-02 Uni vers appetite appetite 2-06 ity of 00:00: [place] 00 Medical Branch Asthma in Asthma in Disease [...] impairment impairment 9-25 it y of 00:00: [place] 00 Medical Branch Hair loss Hair loss Disease Active Uni vers 9-25 ity of 00:00: [place] [facility] COVID-19 COVID-19 Disease Active Unive rs virus virus 7-20 ity of infection [place] GERD GERD Disease Active Univers (gastroeso (gastroeso 7-20 it y of phageal phageal 00:00: reflux reflux Medical disease) disease) Branch Neuropathy Neuropathy Disease Active U nivers of both of both 7-20 ity of feet feet 00:00: [place] [facility] Abdominal Abdominal Disease Active [facility] Sepsis Sepsis Disease Active [facility] Hypertensi Hypertensi Disease Active [facility] 00:[facility] Ureteropel Ureteropel Disease Active [facility] bessie bessie 5-25 [facility] junction junction 00:00: Medica l (UPJ) (UPJ) 00 Center obstructio obstructio n, left n, left Bilateral Bilateral Disease Active 2018-02 Uni vers foot pain foot pain 1-26 ity of 00:: [place] [facility] Kidney Kidney Disease Active 2017-02 Univers stone stone 0-15 ity of 00:: [place] [facility] Abnormal Abnormal Disease Active 2017-02 Overview: Un briana liver liver 0-15 Formattin ity of ultrasound ultrasound 00:00: g of this note Medical might be Branch different from the original. 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 0-05 it y of 2 diabetes 2 diabetes [place] mellitus mellitus 00 Medica l Branch Essential Essential Disease Active 2016-02 Uni vers hypertensi hypertensi 0-02 it y of on on 00:00: [place] [facility] HLD HLD Disease Active 2016-02 Univers (hyperlipi (hyperlipi 0-02 it y of demia) demia) 00:00: Medical Branch History of History of Disease Active 2016-02 U nivers chest pain chest pain 0-02 it y of 00:00: [place] [facility] Palpitatio Palpitatio Disease Active 2016-02 U nivers ns ns 0-02 ity of 00:00: [place] [facility] Osteoporos Osteoporos Disease Active U nivers is is ity [facility] Abnormal Abnormal Disease Active Unive rs EKG EKG ity of [facility] No known No known Disease [facility] active active [facility] problems problems of Medicin e Allergies, Adverse Reactions, Alerts Allergy Allergy Status Severity Reaction(s) Onset Inactive Treating Comm ents Source Name Type Date Date Clinician NO KNOWN Allergy Active [facility] NO KNOWN Drug Active Univers ALLERGIE Class ity of [facility] Social History Social Habit Start Date Stop Date Quantity Comments Source History SDOH [facility] Alcohol Std Medical Cent[facility] r Drinks History SDOH [facility] Alcohol Binge Medical Marilyn ter History SDOH [facility] Alcohol Comment Medical C enter Exposure to 2021-08-31 2021-09-10 Not sure University SARS-CoV-2 00:00:00 16:05:00 [facility] (event) Branch Tobacco use and 2019-10-07 2019-10-07 Smokeless tobacco [facility] of exposure 00:00:00 00:00:00 non-user Medicine Alcohol intake 2019-07-12 2019-07-[address] [facility] es 00:00:00 00:00:00 non-drinker of Medical Ce nter alcohol (finding) History SDOH 2019-07-10 2019-07-[address] [facility] Alcohol Frequency 00:00:00 00:00:00 [facility] Sex Assigned At [address] [address] [facility] kes 00:00:00 00:00:00 [facility] Smoking Status Start Date Stop Date Source Never smoked tobacco [facility] ege of Medicine Medications Ordered Filled Start Stop Current Ordering Indication Dosage Frequency Signature Comments Components Source Medication Medication Date Date Medication? Clinician (SIG) Name Name metFORMIN Yes 500mg Take 1 Unive rs 500 mg 24 7-29 tablet by ity o f hr tablet 00:00: mouth [place] 00 daily with Medical breakfast. Branch metFORMIN Yes 500mg Take 1 Unive rs 500 mg 24 7-29 tablet by ity o f hr tablet 00:00: mouth [place] 00 daily with Medical breakfast. Branch losartan 50 Yes [id number] 50mg Take 1 Univers mg tablet 7-15 tablet by ity o f 00:00: mouth 00 daily. Medical Branch losartan 50 Yes [id number] 50mg Take 1 Univers mg tablet 7-15 tablet by ity o f 00:00: mouth 00 daily. Medical Branch clotrimazol 2021- No [id number] Apply to Univers e 1 % 7-15 - area(s) 2 ity of topical 00:00: 04:59 (two) [place] cream 00 :00 times Medical daily for Branch 14 days. Magnesium Yes Take by [facility] 100 MG CAPS 3-21 mouth. Colleg e 10:29: of Medicin e Melatonin Yes Take by [facility] 10 MG TABS 3-21 mouth. College 10:29: of Medicin e furosemide Yes 40mg Take 1 Unive rs 40 mg 3-17 tablet by ity of tablet 00:00: mouth 00 daily. Medical Branch furosemide Yes 40mg Take 1 Unive rs 40 mg 3-17 tablet by ity of tablet 00:00: mouth [place] 00 daily. Medical Branch ATORVASTATI 2020-02 Yes [id number] 40mg TAKE 1 Univers N 40 mg 2-13 TABLET BY ity of tablet 00:00: MOUTH AT [place] 00 BEDTIME Medical Branch ATORVASTATI 2020-02 Yes [id number] 40mg TAKE 1 Univers N 40 mg 2-13 TABLET BY ity of tablet 00:00: MOUTH AT [place] 00 BEDTIME Medical Branch azelastine 2020-02 Yes [id number] 1{spray Use 1 Univers 137 mcg 2-02 } [place] in ity of (0.1 %) 00:00: each [place] nasal spray 00 nostril 2 Med ical (two) Branch times daily. Use in each nostril as directed fluticasone 2020-02 Yes [id number] 2{puff} Inhale 2 Univers propionate 2-02 Puffs 2 ity of (FLOVENT 00:00: (two) [place] HFA) 44 00 times Medical mcg/actuati daily. Branch on inhaler Rinse mouth after each use. azelastine 2020-02 Yes [id number] 1{spray Use 1 Univers 137 mcg 2-02 } [place] in ity of (0.1 %) 00:00: each [place] nasal spray 00 nostril 2 Med ical (two) Branch times daily. Use in each nostril as directed fluticasone 2020-02 Yes [id number] 2{puff} Inhale 2 Univers propionate 2-02 Puffs 2 ity of (FLOVENT 00:00: (two) [place] HFA) 44 00 times Medical mcg/actuati daily. Branch on inhaler Rinse mouth after each use. Magnesium 2020-02 Yes Take by [facility] 100 MG CAPS 1-10 mouth. [facility] 15:46: Medicin e Melatonin 2020-02 Yes Take by [facility] 10 MG TABS 1-10 mouth. [place] 15:46: of Medicin e oxybutynin 2020-02 Yes 10mg Take 1 [facility] (DITROPAN 1-10 Tablet by [employer] XL) 10 MG 00:00: mouth of CR tablet 00 daily. Medicin e oxybutynin 2020-02 Yes 10mg Take 1 [facility] (DITROPAN 1-10 Tablet by [employer] XL) 10 MG 00:00: mouth of CR tablet 00 daily. Medicin e albuterol Yes [id number] 2{puff} Inhale 2 Univers (PROAIR 9-03 Puffs ity of HFA) 90 00:00: every 6 [place] mcg/actuati 00 (six) Medical on inhaler hours as Branc h needed for Wheezing or Shortness of Breath. albuterol Yes [id number] 2{puff} Inhale 2 Univers (PROAIR 9-03 Puffs ity of HFA) 90 00:00: every 6 [place] mcg/actuati 00 (six) Medical on inhaler hours as Branc h needed for Wheezing or Shortness of Breath. amLODIPine Yes [id number] 2.5mg Take 1 Univers 2.5 mg 6-07 tablet by ity of tablet 00:00: mouth [place] 00 daily. Medical Branch amLODIPine Yes [id number] 2.5mg Take 1 Univers 2.5 mg 6-07 tablet by ity of tablet 00:00: mouth [place] 00 daily. Medical Branch hydrochloro 2020- No 25mg Take 25 mg Art thiazide 3-22 03-22 by mouth Colleg e (HYDRODIURI 16:58: 00:00 daily. of L) 25 MG 25 :00 Medicin tablet e Magnesium Yes Take by [facility] 100 MG CAPS 3-22 mouth. Colleg e 15:58: of 46 Medicin e Melatonin Yes Take by [facility] 10 MG TABS 3-22 mouth. [place] 15:58: of 46 Medicin e hydrochloro Yes [...] of CR tablet 00 daily. Medicin e hydrochloro Yes 25mg Take 1 [facility] thiazide 3-22 Tablet by Colleg e (HYDRODIURI 00:00: mouth of L) 25 MG 00 daily. Medicin tablet e Potassium Yes Take 2 Art Citrate 3-22 tablets PO Colleg e (UROCIT-K 00:00: TID of 10) 10 MEQ 00 Medicin (1080 MG) e TBCR oxybutynin 0 2020- No 10mg Take 1 [facility] (DITROPAN 3-22 11-10 Tablet by Kristine ege XL) 10 MG 00:00: 00:00 mouth of CR tablet 00 :00 daily. Medicin e hydrochloro 2019-02 Yes 25mg Take 25 mg [facility] thiazide 1-23 by mouth College (HYDRODIURI 17:00: daily. of L) 25 MG 06 Medicin tablet e Magnesium 2019-02 Yes Take by [facility] 100 MG CAPS - mouth. Colleg e 17:00: of Medicin e Melatonin 2019-02 Yes Take by [facility] 10 MG TABS - mouth. College 17:00: of 06 Medicin e Potassium 2019-02 Yes Take 2 Art Citrate -23 tablets PO Colleg e (UROCIT-K 00:00: TID of 10) 10 MEQ 00 Medicin (1080 MG) e TBCR Potassium 2019-02- No Take 2 [facility] Citrate 1-23 03-22 tablets PO Colle ge (UROCIT-K 00:00: 00:00 TID of 10) 10 MEQ 00 :00 Medicin (1080 MG) e TBCR levothyroxi 2019-02 Yes 25ug Take 25 [place] raul ne 1-02 mcg by [place] (SYNTHROID) 00:00: mouth. of 25 MCG 00 Medicin tablet e levothyroxi 2019-02 Yes 25ug Take 25 [place] raul ne 1-02 mcg by [place] (SYNTHROID) 00:00: mouth. of 25 MCG 00 Medicin tablet e levothyroxi 2019-02- No 25ug Take 25 Ba ylor ne 1-02 11-10 mcg by [place] (SYNTHROID) 00:00: 00:00 mouth. of 25 MCG 00 :00 Medicin tablet e aspirin 81 2019-02 Yes [id number] 81mg Take 1 Univers mg chewable 0-01 [id number] tablet by i ty of tablet 00:00: mouth [place] 00 daily. Medical Branch aspirin 81 2019-02 Yes [id number] 81mg Take 1 Univers mg chewable 0-01 [id number] tablet by i ty of tablet 00:00: mouth [place] 00 daily. Medical Branch atorvastati 0 Yes Art n (LIPITOR) 6-13 [place] 40 MG 00:00: of tablet 00 Medicin e atorvastati 0 Yes Art n (LIPITOR) 6-13 [place] 40 MG 00:00: of tablet 00 Medicin e atorvastati Yes Art n (LIPITOR) 6-13 College 40 MG 00:00: [...] for premedicat ion hydrALAZINE 2020-0 Yes 50mg Q.[id number] Take [address] [facility] (APRESOLINE 2-17 [id number] by mouth 3 [facility] ) 50 MG 00:00: 3D (three) Medical tablet 00 times Center daily . hydroCHLORO 2020-0 Yes 25mg QD Take [address] thiazide 2-17 by mouth [facility] (HYDRODIURI 00:00: daily. Medi angelica L) 25 MG 00 [place] tablet aspirin EC 0 Yes 81mg Take 81 mg [facility] [place] 81 MG 6-21 by mouth. College tablet 00:00: of 00 Medicin e aspirin EC Yes 81mg Take 81 mg [facility] [place] 81 MG 6-21 by mouth. College tablet 00:00: of Medicin e aspirin 81 2018-0 Yes 81mg QD Take [address] MG chewable 6-21 by mouth Luke s tablet 00:00: daily. Medical [address] [place] [address] aspirin EC Yes 81mg Take 81 mg [facility] [place] 81 MG 6-21 by mouth. College tablet 00:00: of Medicin e aspirin EC Yes 81mg Take 81 mg [place] 81 MG 6-21 by mouth. [place] tablet 00:00: of 00 Medicin e aspirin EC Yes 81mg Take 81 mg [facility] [place] 81 MG 6-21 by mouth. [place] tablet 00:00: [facility]- Yes 40mg QD Take [address] n (LIPITOR) 1-30 by mouth Luke s 40 MG 00:00: daily. Medical tablet [address] [place] [address] amLODIPine 2017-02 Yes 2.5mg QD Take 2.[address] (NORVASC) 5 1-30 mg by Lukes MG tablet 00:00: mouth Medical 00 daily . [place] Immunizations Ordered Filled Immunization Date Status Comments [facility] e Immunization Name Name SARS-COV-2 COVID-19 2021-01-15 Completed Unive rsity of MODERNA 0.25ML 00:00:00 [facility] BOOSTER VACCINE Branch SARS-COV-2 COVID-19 2021-01-15 Completed Unive rsity of MODERNA 0.25ML 00:00:00 [facility] BOOSTER VACCINE Branch Influenza High Dose 2019-11-08 Completed Unive rsity of Quad 00:00:00 [facility] Influenza High Dose 2019-11-08 Completed Unive rsity of [place] 00:00:00 [facility] Influenza High Dose 2019-02-13 Completed Unive rsity of 00:00:00 [facility] Influenza High Dose 2019-02-13 Completed Unive rsity of 00:00:00 [facility] TDAP 2017-11-10 Completed University of 00:00:00 [facility] TDAP 2017-11-10 Completed University of 00:00:00 [facility] Pneumococcal 2017-06-09 Completed University o f Polysaccharide, 00:00:00 [place] Med ical PPSV23 (PNEUMOVAX) Branch Pneumococcal 2017-06-09 Completed University o f Polysaccharide, 00:00:00 [place] Med ical PPSV23 (PNEUMOVAX) Branch Influenza High Dose 2016-11-14 Completed Unive rsity of 00:00:00 [facility] Influenza High Dose 2016-11-14 Completed Unive rsity of 00:00:00 [facility] Vital Signs Vital Name Observation Time Observation Value Comments Source HEIGHT 2019-07-08 00:00:00 147.3 cm WEIGHT 2019-07-08 00:00:00 57.743 kg Systolic blood 2021-09-10 21:07:00 121 mm[Hg] Univer sity of pressure [facility] Diastolic blood 2021-09-10 21:07:00 66 mm[Hg] Unive rsity of pressure [facility] Heart rate 2021-09-10 21:07:00 79 /min [facility] Body temperature 2021-09-10 21:07:00 36.94 Monique [facility] Body height 2021-09-10 21:07:00 160 cm [facility] Body weight 2021-09-10 21:07:00 61.689 kg [facility] BMI 2021-09-10 21:07:00 24.09 kg/m2 [facility] Oxygen saturation in 2021-09-10 21:07:00 97 /min [facility] Arterial blood by [facility] Pulse oximetry Branch Systolic blood 2021-05-03 15:25:00 121 mm[Hg] [facility] pressure Medicine Diastolic blood 2021-05-03 15:25:00 65 mm[Hg] [facility] pressure Medicine Heart rate 2021-05-03 15:25:00 88 /min [facility] Systolic blood 2020-12-23 21:48:00 137 mm[Hg] [facility] pressure Medicine Diastolic blood 2020-12-23 21:48:00 69 mm[Hg] [facility] pressure Medicine Heart rate 2020-12-23 21:48:00 73 /min [facility] Body temperature 2020-12-23 21:48:00 36.83 Monique [facility] Respiratory rate 2020-12-23 21:48:00 15 /min [facility] Body height 2020-12-23 21:48:00 162.6 cm [facility] Body weight 2020-12-23 21:48:00 58.968 kg [facility] ollege of Medicine BMI 2020-12-23 21:48:00 22.31 kg/m2 [facility] Systolic blood 2020-05-04 15:57:00 131 mm[Hg] [facility] Medicine Diastolic blood 2020-05-04 15:57:00 60 mm[Hg] [facility] Medicine Heart rate 2020-05-04 15:57:00 67 /min [facility] ollege of Medicine Respiratory rate 2020-05-04 15:57:00 18 /min [facility] Body height 2020-05-04 15:57:00 147.3 cm [facility] Body weight 2020-05-04 15:57:00 58.514 kg [facility] ollege of Medicine BMI 2020-05-04 15:57:00 26.96 kg/m2 [facility] ol[facility] of Medicine Systolic blood 2020-01-06 16:58:00 146 mm[Hg] [facility] Medicine Diastolic blood 2020-01-06 16:58:00 71 mm[Hg] [facility] Medicine Heart rate 2020-01-06 16:58:00 88 /min [facility] ollege of Medicine Body temperature 2020-01-06 16:58:00 36.44 Monique [facility] Respiratory rate 2020-01-06 16:58:00 16 /min [facility] Body height 2020-01-06 16:58:00 144.8 cm [facility] ollege of Medicine Body weight 2020-01-06 16:58:00 58.968 kg [facility] ollege of Medicine BMI 2020-01-06 16:58:00 28.13 kg/m2 [facility] ollege of Medicine Systolic blood 2020-01-06 16:58:00 146 mm[Hg] [facility] pressure Medicine Diastolic blood 2020-01-06 16:58:00 71 mm[Hg] [facility] pressure Medicine Heart rate 2020-01-06 16:58:00 88 /min [facility] ol[facility] of Medicine Body temperature 2020-01-06 16:58:00 36.44 Monique [facility] Respiratory rate 2020-01-06 16:58:00 16 /min [facility] Body height 2020-01-06 16:58:00 144.8 cm [facility] Body weight 2020-01-06 16:58:00 58.968 kg [facility] BMI 2020-01-06 16:58:00 28.13 kg/m2 [facility] Systolic blood 2019-10-07 14:05:00 127 mm[Hg] [facility] pressure Medicine Diastolic blood 2019-10-07 14:05:00 67 mm[Hg] [facility] Medicine Heart rate 2019-10-07 14:05:00 70 /min [facility] ol[facility] of Medicine Body temperature 2019-10-07 14:05:00 36.39 Monique [facility] Respiratory rate 2019-10-07 14:05:00 16 /min [facility] Body height 2019-10-07 14:05:00 162.6 cm [facility] Body weight 2019-10-07 14:05:00 58.968 kg [facility] BMI 2019-10-07 14:05:00 22.31 kg/m2 [facility] ollege of Medicine Systolic blood 2019-10-07 14:05:00 127 mm[Hg] [facility] of pressure Medicine Diastolic blood 2019-10-07 14:05:00 67 mm[Hg] [facility] pressure Medicine Heart rate 2019-10-07 14:05:00 70 /min [facility] ollege of Medicine Body temperature 2019-10-07 14:05:00 36.39 Monique [facility] or [facility] Respiratory rate 2019-10-07 14:05:00 16 /min [facility] Body height 2019-10-07 14:05:00 162.6 cm [facility] Body weight 2019-10-07 14:05:00 58.968 kg [facility] BMI 2019-10-07 14:05:00 22.31 kg/m2 [facility] HEIGHT 2019-07-08 00:00:00 147.3 cm WEIGHT 2019-07-08 00:00:00 57.743 kg pulse rate 2019-07-01 08:14:01 80 /min [facility], 2019-07-01 08:14:01 71 mm[Hg] [facility] diastolic Health blood pressure, 2019-07-01 08:14:01 171 mm[Hg] [facility] systolic Health pulse rate 2019-06-25 09:35:00 76 /min [facility] blood pressure, 2019-06-25 09:35:00 77 mm[Hg] [facility] diastolic Health blood pressure, 2019-06-25 09:35:00 153 mm[Hg] [facility] systolic Health Procedures Procedure Date / Time Performed Performing Clinician Alyssa e POCT URINALYSIS 2020-12-23 00:00:00 Adams Germain [facility] Medicine POCT URINALYSIS 2020-12-23 00:00:00 [facility] Medicine POCT URINALYSIS 2020-01-06 00:00:00 Adams Germain [facility] Medicine BASIC METABOLIC PANEL 2019-10-07 14:32:00 Adams Germain [facility] MAGNESIUM 2019-10-07 14:32:00 Adams Germain [facility] of Medicine URIC ACID 2019-10-07 14:32:[address] [facility] Medicine Plan of Care Planned Activity Planned Date Details Comments Source Future Scheduled 2027-11-11 DTAP/TDAP/TD [facility] Test 00:00:00 VACCINES (2 - Td or Medical Center Tdap) [code = DTAP/TDAP/TD VACCINES (2 - Td or Tdap)] Future Scheduled 2021-05-04 ZOSTER VACCINE (1 of [facility] Test 15:51:29 2) [code = ZOSTER of Medicin e VACCINE (1 of 2)] Future Scheduled 2021-05-04 Screening for Art [employer]ge Test 15:51:29 osteoporosis of Medicine (procedure) [code = 526134186] Future Scheduled 2021-05-04 Pneumococcal 65+ (1 [employer] Test 15:51:29 of 1 - PPSV23) [code of Medi cine = Pneumococcal 65+ (1 of 1 - PPSV23)] Future Scheduled 2021-05-04 MEDICARE AWV [facility] Kristine ege Test 15:51:29 (Initial) [code = of Medicin e MEDICARE AWV (Initial)] Future Scheduled 2021-05-04 FLU VACCINE > 6 [facility] C ollege Test 15:51:29 MONTHS [code [...] Medicine Future Scheduled 2021-05-04 TETANUS SHOT (ADULT) [place] [facility] [employer] Test 15:51:29 [code = TETANUS SHOT of Medi cine (ADULT)] Future Scheduled 2021-05-04 US RENAL BILATERAL Expected: [facility] [facility] [employer] Test 00:00:00 [code = 13783] 05/04/2021, of Medicine Expires: 05/04/2021 Future Scheduled 2021-01-03 COVID-19 Vaccine (1) [place] [facility] [employer] Test 08:34:34 [code = COVID-19 of Medicine Vaccine (1)] Future Scheduled 2021-01-03 ZOSTER VACCINE (1 of [place] [facility] [employer] Test 08:34:34 2) [code = ZOSTER of Medicin e VACCINE (1 of 2)] Future Scheduled 2021-01-03 Screening for Art Col [employer]ge Test 08:34:34 osteoporosis of Medicine (procedure) [code = 999618391] Future Scheduled 2021-01-03 Pneumococcal 65+ (1 [employer] Test 08:34:34 of 1 - PPSV23) [code of Medi cine = Pneumococcal 65+ (1 of 1 - PPSV23)] Future Scheduled 2021-01-03 MEDICARE AWV [facility] Kristine ege Test 08:34:34 (Initial) [code = of Medicin e MEDICARE AWV (Initial)] Future Scheduled 2021-01-03 FLU VACCINE > 6 [facility] C ollege Test 08:34:34 MONTHS [code = FLU of Medici ne VACCINE > 6 MONTHS] Future Scheduled 2021-01-03 FALL SCREEN [code = [facility] Test 08:34:34 FALL SCREEN] of Medicine Future Scheduled 2021-01-03 TETANUS SHOT (ADULT) [facility] Test 08:34:34 [code = TETANUS SHOT of Medi cine (ADULT)] Future Scheduled 2020-10-[address] [facility] Test 00:00:00 (#1) [code = Medical Center INFLUENZA VACCINE (#1)] Diagnostic Test 2020-07-11 US RENAL BILATERAL Expected: [facility] Pending 00:00:00 [code = 02834] 07/11/2020, of Medicine Expires: 01/11/2021 Future Scheduled [...] Test 00:00:00 [code = FALLS RISK Medical enter SCREENING] Future Scheduled 1986 SHINGLES VACCINES ([address] [facility] Test 00:00:00 of 2) [code = Medical Center SHINGLES VACCINES (1 of 2)] Future Scheduled 1948 COVID-19 VACCINE (1) [facility] Test 00:00:00 [code = COVID-19 Medical [facility] ter VACCINE (1)] Future Scheduled PTH,INTACT,WITH Ordered: [facility] ollege Test CALCIUM,PO4,CREAT 10/07/2019 of Medicin e [code = NOCPT] Future Scheduled TETANUS SHOT (ADULT) [facility] Test [code = TETANUS SHOT of Medi cine (ADULT)] Future Scheduled ZOSTER VACCINE (1 of [place] [employer] Test 2) [code = ZOSTER of Medicin e VACCINE (1 of 2)] Future Scheduled OSTEOPOROSIS [facility] Kristine ege Test SCREENING [code = of Medicin e OSTEOPOROSIS SCREENING] Future Scheduled MEDICARE AWV [facility] Kristine ege Test (Initial) [code = [...] PLAN] Future Scheduled ZOSTER VACCINE (1 of [place] [employer] Test 2) [code = ZOSTER [...] of Medicine Future Scheduled TETANUS SHOT (ADULT) [place] [employer] Test [code = TETANUS SHOT of Medi cine (ADULT)] Future Scheduled COVID-19 Vaccine (1) [place] [employer] Test [code = COVID-19 of Medicine Vaccine (1)] Future Scheduled BMI FOLLOW UP PLAN [employer] Test [code = BMI FOLLOW of Medici ne UP PLAN] Future Scheduled ZOSTER VACCINE (1 of [place] [employer] Test 2) [code = ZOSTER of Medicin e VACCINE (1 of 2)] Future Scheduled Screening for [facility] Col lege Test osteoporosis of Medicine (procedure) [code = 123761014] Future Scheduled MEDICARE IPPE Art Col lege Test (WELCOME TO of Medicine MEDICARE) [code = MEDICARE IPPE (WELCOME TO MEDICARE)] Future Scheduled FLU VACCINE > 6 [facility] C ollege Test MONTHS [code = FLU of Medici ne VACCINE > 6 MONTHS] Future Scheduled FALL SCREEN [code = [employer] Test FALL SCREEN] of Medicine Future Scheduled TETANUS SHOT (ADULT) [place] [employer] Test [code = TETANUS SHOT of Medi cine (ADULT)] Encounters Start End Encounter Admission Attending Care Care Encounter Source Date/Time Date/Time Type Type Clinicians Facility Department ID 2020-11-29 Outpatient [facility] [id number] Legacy 10:44:36 [id number] [facility] 2020-11-29 Outpatient [facility] [id number] Legacy 08:37:05 [id number] [facility] 2020-11-26 Outpatient [facility] [id number] Legacy 17:47:41 [id number] [facility] 2020-11-26 Outpatient [facility] [id number] Legacy 17:43:25 [id number] [facility] 2020-11-26 Outpatient [facility] [id number] Legacy 17:38:25 [id number] [facility] 2020-11-26 Outpatient [facility] [id number] Legacy 17:36:45 [id number] [facility] 2020-11-26 Outpatient [facility] [id number] Legacy 17:34:20 [id number] [facility] 2020-11-26 Outpatient [facility] [id number] Legacy 17:30:46 [id number] [facility] 2020-11-26 Outpatient [facility] [id number] Legacy 17:29:46 [id number] [facility] 2020-11-17 Inpatient ER GUILLERMO, [facility] Urology [id number] SLE 14:52:09 LILIANA 2021-09-17 2021-09-17 Outpatient MICHAEL SALDIVAR [facility] [id number] Univers 11:00:00 11:00:00 MICHAEL MATT [facility] 2021-09-13 2021-09-13 Telephone [facility] [id number] Univers 00:00:00 00:00:00 [facility] 350.1.13.10 ity of [place] 4.2.7.2.686 Kilo as BHARTI?BLEA [phone] [address] MEDICAL OFFICE BUILDING 2021-09-10 2021-09-10 Office [facility] 1.2.840.114 [id number] Univers 16:00:00 17:05:49 Visit [facility] 350.1.13.10 ity of [place] 4.2.7.2.686 Kilo as BHARTI?BLEA [phone] Me salvatore [address] OFFICE BUILDING 2021-05-03 2021-05-03 Office Link, [facility] 1.2.840.114 [id number] 74 [facility] 10:00:00 11:16:44 Visit Adams Dias AMBULATOR 350.1.13.21 College Y 0.2.7.2.686 of [id number] Medi raimundo 300 e 2021-05-03 2021-05-03 Outpatient BCM [facility] [id number] [facility] 10:26:26 10:26:26 Colleg e of Medicin e 2021-05-03 2021-05-03 Outpatient BCM [facility] [id number] [facility] 10:13:26 10:13:26 Colleg e of Medicin e 2020-12-23 2021-01-10 Office LINK, [facility] 1.2.840.114 [id number] [facility] 15:05:24 13:24:06 Visit ADAMS AMBULATOR 350.1.13.21 College Y 0.2.7.2.686 of [id number] Medi raimundo 300 e 2020-05-04 2020-05-04 Office LINK, [facility] 1.2.840.114 [id number] 34 [facility] 10:43:07 12:09:48 Visit ADAMS AMBULATOR 350.1.13.21 College Y 0.2.7.2.686 of [id number] Medi raimundo 300 e 2020-04-29 2020-04-29 Telephone Beto DCDELIA 1.2.901.711 [id number] 00:00:00 00:00:00 Daniel Harris 350.1.13.10 [place] 4.2.7.2.686 Professio [phone] [facility]9 [facility] 2020-04-29 2020-04-29 Refill Beto DCDELIA 1.2.840.114 [id number] 00:00:00 00:00:00 Daniel Harris 350.1.13.10 [place] 4.2.7.2.686 Professio [phone] [facility] 2020-04-25 2020-04-25 Urgent Provider, DCDELIA [id number] [id number] 10:12:47 10:32:47 Care Ang [facility] 350.1.13.10 Care Ina 4.2.7.2.686 Professio [phone] nal [facility] Office Building One 2020-04-15 2020-04-15 Telephone [place] [facility] 1.2.840.114 [id number] 00:00:00 00:00:00 [facility] 350.1.13.10 Ina 4.2.7.2.686 Professio [phone] nal [facility] Office Building One 2020-03-07 2020-03-07 Patient Tyler [facility] 1.2.840.114 [id number] 00:00:00 00:00:00 Outreach Ethan PRIMARY 350.1.13.10 Herbie CARE 4.2.7.2.686 PAVILLION [id number] 2020-01-16 2020-01-16 Telemedici Sarahi [facility] 1.2.840.114 [id number] 16:09:25 16:24:25 ne Visit Jamilful A Health 350.1.13.10 Ina 4.2.7.2.686 Professio [phone] nal [facility] Office Building One 2020-01-12 2020-01-12 Orders Doctor LILLIANA 1.2.840.114 [id number] 00:00:00 00:00:00 Only Unassigned, MACKENZIE 350.1.13.10 [facility] 4.2.7.2.686 [id number] 009 2020-01-06 2020-01-06 Office Link, [facility] 1.2.840.114 [id number] 10:46:16 11:44:31 Visit Adams Dias AMBULATOR 350.1.13.21 Y 0.2.7.2.686 [id number] 300 2020-01-06 2020-01-06 Office Link, [facility] 1.2.840.[id number] [place] [address] 10:46:16 11:44:31 Visit Adams Larissa AMBULATOR 350.1.13.21 College Y 0.2.7.2.686 of [id number] Medi raimundo 300 e 2019-12-16 2019-12-16 Case Sarahi [facility] 1.2.840.114 [id number] 00:00:00 00:00:00 Management W[facility]iful [facility] 350.1.13.10 Ina 4.2.7.2.686 Professio [phone] [place] [address] Office Building One 2019-12-12 2019-12-12 Insole And Heel Stiffener 1, Adc Lab [facility] 1.2.840.114 [id number] 09:36:54 09:51:54 Visit Ina 350.1.13.10 [place] 4.2.7.2.686 Carpenter [id number] [id number] 2019-12-12 2019-12-12 Telephone Sarahi [facility] 1.2.840.114 [id number] 00:00:00 00:00:00 W[facility]iful [facility] 350.1.13.10 Ina 4.2.7.2.686 Professio [phone] [place] [address] Office Building One 2019-12-05 2019-12-05 Orders Doctor LILLIANA 1.2.840.114 [id number] 00:00:00 00:00:00 Only Unassigned, MACKENZIE 350.1.13.10 [place] [facility] 4.2.7.2.686 [id number] 009 2019-11-14 2019-11-14 Beto Mcclain [facility] 1.2.840.114 [id number] 00:00:00 00:00:00 Management [facility] 350.1.13.10 Ina 4.2.7.2.686 Professio [phone] [place] [address] Office Building One 2019-11-13 2019-11-13 Case Sarahi [facility] 1.2.840.114 [id number] 00:00:00 00:00:00 Management [facility] 350.1.13.10 Ina 4.2.7.2.686 Professio [phone] [place] [address] Office Building One 2019-11-08 2019-11-08 Office Sarahi [facility] 1.2.840.114 [id number] 09:44:58 11:00:23 Visit Wondiful [facility] 350.1.13.10 Ina 4.2.7.2.686 Professio [phone] nal 044 Office Building One 2019-10-07 2019-10-07 Office [place] 1.2.840.114 [id number] 08:45:50 10:08:26 Visit Adams Dias AMBULATOR 350.1.13.21 Y 0.2.7.2.686 [id number] 300 2019-10-07 2019-10-07 Office [place] 1.2.840.114 [id number] [facility] 08:45:50 10:08:26 Visit Adams Dias AMBULATOR 350.1.13.21 College Y 0.2.7.2.686 [id number] [facility] raimundo 300 e 2019-08-29 2019-08-29 Urgent Lab, [facility] 1.2.840.114 [id number] 11:00:00 11:20:00 Care [facility] Pob I Health 350.1.13.10 Ina 4.2.7.2.686 Professio [id number] nal 044 Office [facility] One 2019-07-30 2019-07-30 Office ADRIAN Thacker [facility] Encounter / Legacy 00:00:00 00:00:00 Visit Renata [id number] Com natalee [id number] Health 2019-07-01 2019-07-01 Office WilfredoNICOLASA willingham NICOLASA Encounter/ Legacy 00:00:00 00:00:00 Visit Mirella [id number] Katiuska De La [place] [id number] Health 2019-07-01 2019-07-01 [facility] Legacy 00:00:00 00:00:00 Visit Mirella [id number] Katiuska De La [place] [id number] Health 2019-07-01 2019-07-01 Office WilfredoMirella [facility] Encounter/ Legacy 00:00:00 00:00:00 Visit Shy Miller [id number] Communi [id number] Health 2019-06-25 2019-06-25 Office WilfredoNICOLASA willingham NICOLASA Encounter/ Legacy 00:00:00 00:00:00 Visit Mirella [id number] Katiuska De La [place] [id number] Health 2019-06-25 2019-06-25 Office WilfredoNICOLASA willingham NICOLASA Encounter/ Legacy 00:00:00 00:00:00 Visit Mirella [id number] Katiuska De La Cruz [id number] [facility] 2019-06-25 2019-06-25 Office Wilfredo [facility] Encounter/ Legacy 00:00:00 00:00:00 Visit Mirella [id number] [facility] natalee [place] [id number] [facility] 2019-06-25 2019-06-25 Office Mirella Villalobos [facility] Encounter/ Legacy 00:00:00 00:00:00 Visit Renata Thacker [id number] [address] [place] [address] 126140 [facility] Results Test Description Test Time Test Comments Results Result Comments Source POCT URINALYSIS DIPSTICK 2020-12-23 00:00:00 Test Item Value Reference Range Interpretation Comme nts COLOR UA (test code = 5778-6) Yellow YELLOW/STRAW CLARITY UA (test code = 30074-9) Clear CLEAR GLUCOSE UA (test code = 5792-7) Negative NEGATIVE BILIRUBIN UA (test code = 5770-3) Negative NEGATIVE KETONES UA (test code = 98007-1) Negative NEGATIVE SPECIFIC GRAVITY UA (test code [...] NEGATIVE REDUCING SUBSTANCES URINE (test code = 09267-0) NEGATI VE Lab Interpretation (test code = 88514-7) [facility]normal [facility] [id number] 00:00:00 Test Item Value Reference Range Interpretation Comments COLOR UA (test code = 5778-6) Light Yellow YELLOW/STRAW CLARITY UA (test code = Cloudy CLEAR 95800-6) GLUCOSE UA (test code = Negative NEGATIVE 5792-7) BILIRUBIN UA (test code = Negative NEGATIVE 5770-3) KETONES UA (test code = Negative NEGATIVE 55226-5) SPECIFIC GRAVITY UA (test 1.005-1.035 code = [...] 5802-4) REDUCING SUBSTANCES URINE (test code = 50136-5) [facility] [id number] 11:28:02 Test Item Value Reference Range Interpretation Comments MAGNESIUM (test code = See_Comment Unle ss Otherwise 83354-5) Indicated, All Testing Performed At: [facility], [address] [place] [address] Laborator y Director: Tani Vazquez M.D. IA Number [id number] Cap Accreditation N o. 53237-81 [Autom ated message] The sy stem which generated this result transmitted ref erence range: 1.6 - 2. 6 MG/DL. The reference r nanci was not used to int erpret this result as normal/abnormal . [facility] [id number] 08:53:12 Test Item Value Reference Range Interpretation Comments GLUCOSE (test code = See_Comment H [Autom ated message] 5575-7) The system [employer] generated this result transmitted ref erence range: [...] L [Au tomated message] 2160-0) The system [employer] generated this result transmitted ref erence range: 0.60 - 1 .30 MG/DL. The refe rence range was not u sed to interpret this result as normal/abnor mal. EGFR AA (test code = See_Comment [Autom ated message] 24489-5) The system [employer] generated this result transmitted ref erence range: >60 ML/MIN/1.73. Th e reference range was not used to int erpret this result as normal/abnormal . EGFR (test code = See_Comment [Automate d message] 37768-7) The system [employer] generated this result transmitted ref erence range: >60 ML/MIN/1.73. Th e reference range was not used to int erpret this result as normal/abnormal . SODIUM (test code = See_Comment [Automa kendrick message] 2951-2) The system [employer] generated this result transmitted ref erence range: 133 - 14 6 MEQ/L. The refe rence range was not u sed to interpret this result as normal/abnor mal. POTASSIUM (test code = See_Comment [Aut omated message] 7373-3) The system [employer] generated this result transmitted ref erence range: 3.5 - 5. 4 MEQ/L. The refe rence range was not u sed to interpret this result as normal/abnor mal. CHLORIDE (test code = See_Comment [Auto mated message] 2695-0) The system [employer] generated this result transmitted ref erence range: 95 - 107 MEQ/L. The refe rence range was not u sed to interpret this result as normal/abnor mal. CO2 (test code = 1963-8) See_Comment [A utomated message] The system [employer] generated this result transmitted ref erence range: 19 - 31 MEQ/L. The reference r nanci was not used to interpret this result as normal/abnor mal. CALCIUM (test code = See_Comment Unless Otherwise 82475-5) Indicated, All Testing Perform ed At: [facility], [address] [place] [address] Laborator y Director: Tani Vazquez M.D. CLIA Number [id number] Cap Accreditation [place] o. 58459-85 [Autom ated message] The sy stem which generated this result transmit kendrick reference range : 8.5 - 10.5 MG/DL. T he reference range was not used to int erpret this result as normal/abnormal . Lab Interpretation (test Abnormal code = 90074-0) [facility] [id number] 08:53:12 Test Item Value Reference Range Interpretation Comments URIC ACID (test code See_Comment Unless Otherwise = 7742855) Indicated, All Testing Performed At: [facility], [address] [place] [address], [place] [address] Laborator y Director: Konstantin Rock Number [id number] [employer] Accreditation [place] o. 62210-20 [Automated mess age] The system which ge nerated this result transmit kendirck reference range : 2.7 - 6.1 MG/DL. The refe rence range was not used to interpret this result as normal/abnormal . [facility], FLUORO, NON-SPECIFIC, UP TO 1 [id number] 09:44:00Reason for exam:->cystoFINAL REPORT A fluoroscopic unit was utilized for a procedure performed in the operating room. No interpretation was requested. Please refer to the operative report regarding findings. Please refer to PACS for patient radiation dose information. Signed: JR Elizabeth, Alla Mast Verified Date/Time: 07/14/2019 09:44:15 Reading Location: [address] Neuro Reading Room BLOOD [id number] 11:00:00 Test Item Value Reference Range Interpretation Comments CULTURE (BEAKER) (test No growth in 5 days code = 1095) BLOOD [id number] 11:00:00 Test Item Value Reference Range Interpretation Comments CULTURE (BEAKER) (test No growth in 5 days code = 1095) URINE [id number] 11:07:00 Test Item Value Reference Range Interpretation Comments CULTURE (BEAKER) (test code = 1095) No growth ANG, NEPHROSTOMY, PERC, EXTERNAL [id number] 11:00:00Reason for exam:- >request left PCN for left obstructing stone, feversFINAL REPORT Procedure: Percutaneous nephrostomy catheter placement. History: Left ureteric calculus with obstruction, infection. Business Technology Analyst: Bradford Matthew M.D. Wood Tank Erector: Not Konstantin mckeon Modality: Ultrasound and fluoroscopy. DOSE REDUCTION: The examination was performed according to departmental dose- optimization program. Fluoro time: 1.1 minutes Radiation dose: 18.9 mGy air Kerma. Number of images: 8 Sedation: Versed 1 mg and fentanyl 50 mcg was given intravenously for conscious sedation. Vital signs were monitored throughout the procedure by a dedicated RN underdirect supervision of Dr. Matthew, and remained stable. Physician intra-service sedation time was 15minutes. Anesthesia: Lidocaine local infiltration Medicines: Not applicable Contrast medium: Isovue 3 00, 15 cc. Estimated blood loss: < 5 [...] gowns and gloves. The patient was laid prone on the procedure table. The percutaneous nephrostomy sitewas prepped with chlorhexidine gluconate and draped in [...] sequential dilatation of the tract, an 8.5 [place] nephrostomy catheter was placed, pigtail locked in [...] the distal ureter was not seen. The calculus probably has passed on into the bladder. Impression:Successful ultrasound and fluoroscopic g uided 8.5 [place] nephrostomy catheter placement left kidney via a posterior inferior calyx as described above. Further management dictated by the clinical scenario. The nephrostomy catheter(s) should be exchanged at the latest in three months. Thank you for the opportunity to assist in the care of your patient. Signed: Bradford Mattheweport Verified Date/Time: 07/10/2019 11:00:12 Reading Location:[place] [id number] [facility] Body Reading Room 11:00 AMBASIC METABOLIC [id number] 07:33:00 Test Item Value Reference Range Interpretation [...] 1092) DATA TO CALCULA TE ESTIMATED GFR. Business Technology Architect ID - MONIE [id number] 07:25:00 Test Item Value Reference Range Interpretation Comments MAGNESIUM (BEAKER) (test code = 2.2 mg/dL 1.6-2.6 627) Business Technology Architect ID - MONIE CHEPATIC FUNCTION [id number] 07:25:00 Test Item Value Reference Range Interpretation [...] (test code = 43 U/L 6-55 347) Business Technology Architect ID - MONIE CCBC W/PLT COUNT & AUTO [id number] 06:54:00 Test Item Value Reference Range Interpretation [...] (BEAKER) (test code = 2801) BASIC METABOLIC [id number] 05:38:00 Test Item Value Reference Range Interpretation [...] 1092) DATA TO CALCULA TE ESTIMATED GFR. Business Technology Architect ID - [id number] 05:24:00 Test Item Value Reference Range Interpretation Comments MAGNESIUM (BEAKER) (test code = 1.8 mg/dL 1.6-2.6 627) Business Technology Architect ID - LAHEPATIC FUNCTION [id number] 05:24:00 Test Item Value Reference Range Interpretation [...] (test code = 36 U/L 6-55 347) Business Technology Architect ID - LACBC W/PLT COUNT & AUTO [id number] 04:34:00 Test Item Value Reference Range Interpretation [...] (BEAKER) (test code = 2801) LACTIC ACID, [id number] 20:25:00 Test Item Value Reference Range Interpretation Comments LACTATE BLOOD VENOUS (2) (BEAKER) 0.69 mmol/L 0.50-2.20 (test code = 2872) Business Technology Architect ID - NTPRAD, CHEST, 1 VIEW, NON [id number] 16:24:00Reason for exam:->feverShould this be performed at the bedside?->YesFINAL REPORT CLINICAL HISTORY: fever TECHNIQUE: 1 view of the chest. COMPARISON: None IMPRESSION: There is possible retrocardiac left lower lobe consolidation, for which clinical correlation for pneumonia is requested. There is blunting of the left costophrenic angle. The heart isnot enlarged. Signed: Rich Valentine [facility] Verified Date/Time: 07/08/2019 16:24:52 Reading Location: [address] Neuro Reading Room HEMOGLOBIN [id number] 13:56:00 Test Item Value Reference Range Interpretation Comments HEMOGLOBIN A1C (BEAKER) (test code = 6.1 % 4.3-6.1 368) URINALYSIS W/ REFLEX URINE [id number] 13:15:00 Test Item Value Reference Range Interpretation [...] = 516) SOURCE(BEAKER) (test code = 2795) Business Technology Architect ID - [auto]Business Technology Architect ID - techRESPIRATORY PANEL [id number] 12:14:00 Test Item Value Reference Range Interpretation [...] decisions. This sample was tested at the [facility] using the Audience PartnersArray Respiratory Panel. It is FDA cleared and has been verified and approved by the [facility] for clinical use on nasopharyngeal swab specimens.The performance of the FilmArrayRP has not been established in individuals who received influenza vaccine. Recent administration of a nasal influenza vaccine may cause false positive results for Influenza A and/orInfluenza B.SARS-COV2/RT-PCR ([facility])2019-07-08 11:26:00 Test Item Value Reference Range Interpretation Comments SARS-COV2/RT-PCR (test Not Detected Not Detected, Negative code = 1373037) SARS-COV-2 PERFORMING LAB [facility] (test code = 8238605) Negative results do not preclude SARS-CoV-2 infection [...] of the Act.Fact Sheet for Healthcare Pro viders:https://www.[employer]Documents/Xpert%20Xpress%20SARS%20CoV-2/Fact%20Sh eets/302-3802%85BNLQ-XRM-5%20HEALTHCARE%20PROVIDERS%20FACT%20SHEET.pdfFact Sheet for Healthcare Patients:https://www.[employer]/Documents/Xpert%20Xpress%20SARS%20CoV-2/Fact%20Sheets/302-3801%20SARS-COV -2%20PATIENT%20FACT%20SHEET.pdfPerforming Laboratory:[place] [address] [address] [place], [place] [address]VCMQH METABOLIC [id number] 10:06:00 Test Item Value Reference Range Interpretation [...] 1092) DATA TO CALCULA TE ESTIMATED GFR. Business Technology Architect ID - [id number] 10:05:00 Test Item Value Reference Range Interpretation Comments MAGNESIUM (BEAKER) (test code = 2.0 mg/dL 1.6-2.6 627) Business Technology Architect ID - NTPHEPATIC FUNCTION [id number] 10:05:00 Test Item Value Reference Range Interpretation [...] (test code = 30 U/L 6-55 347) Business Technology Architect ID - [id number] 09:53:00 Test Item Value Reference Range Interpretation [...] thrombosis and/or pulmonary embolus.HIGH RISK: Target INR is 2.5-3.5 for patients wiht mechanical heart valves.PROTHROMBIN TIME/[id number] 09:51:00 Test Item Value Reference Range Interpretation Comments PROTIME (BEAKER) (test code = 14.3 seconds 11.9-14.2 H 759) INR (BEAKER) (test code = 370) 1.1 <=5.9 Effective 07/11/2018: PT Reference Range ChangeNew: 11.9-14.2 Previous: 11.7- 14.7RECOMMENDED COUMADIN/WARFARIN INR THERAPY RANGESSTANDARD DOSE: 2.0-3.0 Includes: PROPHYLAXIS for venous thrombosis, systemic embolization; TREATMENT for venous thrombosis and/or pulmonary embolus.HIGH RISK: Target INR is 2.5-3.5 for patients wiht mechanical heart valves.LACTIC ACID, [id number] 09:50:00 Test Item Value Reference Range Interpretation Comments LACTATE BLOOD VENOUS (2) (BEAKER) 2.87 mmol/L 0.50-2.20 H (test code = 2872) Business Technology Architect ID - NTPCBC W/PLT COUNT & AUTO [id number] 09:41:00 Test Item Value Reference Range Interpretation [...]
[2021-10-01] MEDS ORDERED: ONDANSETRON 4 MG/2 ML VIAL ONE (11:10)
[2021-10-01] MEDS ORDERED: NA CHLORIDE 0.9% 1,000 ML ONE (11:10)
--- NOTE | 2021-10-01 11:32 | RAD REPORT ---
EXAM DESCRIPTION: CT - CTHCSPWOC - 10/01/2021 11:18 am CLINICAL HISTORY: FALL COMPARISON: Head C Spine Mpr Wo Con dated 08/13/2021 TECHNIQUE: Axial 5 mm thick images of the head were obtained. Axial 2 mm thick images of the cervical spine were obtained with sagittal and coronal reconstruction images generated and reviewed. All CT scans are performed using dose optimization technique as appropriate and may include automated exposure control or mA/KV adjustment according to patient size. FINDINGS: CT HEAD WITHOUT CONTRAST: No acute hemorrhage, hydrocephalus or extra-axial collection is identified.Remote right frontal lobe infarct. The paranasal sinuses and mastoids are clear.The calvarium is intact. CT CERVICAL SPINE WITHOUT CONTRAST: No fracture or subluxation.No prevertebral soft tissues swelling is identified. Mild anterior endplat e spurring and C5-6. Scarring in the lung apices. IMPRESSION: No acute intracranial or cervical spine findings.Remote right frontal lobe infarct.
[2021-10-01 12:33] LABS: Urine Blood Trace-intact (Negative); Urine Glucose Negative (Negative); Urine Protein Negative (Negative); Urine Specific Gravity 1.015 (1.005-1.030)
[2021-10-01 12:54] LABS: Absolute Lymphocytes (CBC) 2.6 K/uL (0.7-4.9); Lymphocytes % 31.6 % (15.3-44.8); MCV 83.6 fL (80-100); MPV 8.3 fL (7.6-11.3); RBC Red Blood Cell Count 4.55 M/uL (3.86-4.86)
[2021-10-01 13:41] LABS: Albumin 3.2 g/dL (3.4-5.0); Bilirubin Total 0.4 mg/dL (0.2-1.0); Potassium 3.7 mmol/L (3.5-5.1); Protein, Total 6.5 g/dL (6.4-8.2)
--- NOTE | 2021-10-01 14:08 | ER ---
Nurse's Notes [facility] Name: Erika Jacobson Age: 86 yrs Sex: Female : 1935 Arrival Date: 10/01/2021 Time: 10:10 Bed 4 Private MD: Diagnosis: Headache;Fall on same level, unspecified Presentation: 10/01 10:25 Chief complaint: Patient's son or daughter states: the patient fell 2 weeks ago, and ap3 she has been having a headache since. Patient complains of a headache that is 8/10 on the pain scale. Patient denies NV and has been AO X's 4. Coronavirus screen: At this time, the client does not indicate any symptoms associated with coronavirus-19. Ebola Screen: No symptoms or risks identified at this time. Initial Sepsis Screen: Does the patient meet any 2 criteria? No. Patient's initial sepsis screen is negative. Does the patient have a suspected source of infection? No. Patient's initial sepsis screen is negative. Risk Assessment: Do you want to hurt yourself or someone else? Patient reports no desire to harm self or others. Onset of symptoms was September 17, 2021. 10:25 Method Of Arrival: Ambulatory ap3 10:25 Acuity: ISHAN 3 ap3 Triage Assessment: 10:28 General: Appears in no apparent distress. Behavior is calm, cooperative. Pain: ap3 Complains of pain in Head Pain currently is 8 out of 10 on a pain scale. Pain began gradually, 2 weeks ago. Neuro: Level of Consciousness is awake, alert, obeys commands, Oriented to person, place, time, situation, Gait is steady, Speech is normal. Cardiovascular: Patient's skin is warm and dry. Respiratory: Airway is patent Respiratory effort is even, unlabored, Respiratory pattern is regular, symmetrical. GI: Patient currently denies nausea, vomiting. Historical: - Allergies: 10:27 No Known Allergies; ap3 - PMHx: 10:27 Asthma; CVA; Hyperlipidemia; Hypertension; ap3 - Immunization history:: Client reports receiving the 2nd dose of the Covid vaccine. - Social history:: Smoking status: Patient denies any tobacco usage or history of. Screenin:29 Abuse screen: Denies threats or abuse. Nutritional screening: No deficits noted. ap3 Tuberculosis screening: No symptoms or risk factors identified. 11:07 Fall Risk Fall in past 12 months (25 points). Secondary diagnosis (15 points) IV access eh3 (20 points). Ambulatory Aid- Crutches/Cane/Walker (15 pts). Gait- Normal/Bed Rest/Wheelchair (0 pts) Mental Status- Oriented to own ability (0 pts). Total Gonzales Fall Scale indicates High Risk Score (45 or more points). Fall prevention measures have been instituted. Side Rails Up X 2 Placed Close to Nursing Station Frequent Obs/Assessments Occuring Family Present and informed to notify staff if the need to leave the bedside As available patient and family educated on Fall Prevention Program and Strategies. Assessment: 11:07 Reassessment: No changes from previously documented assessment. See triage assessment. eh3 General: Appears in no apparent distress. uncomfortable, Behavior is calm, cooperative, appropriate for age. Pain: Complains of pain in left side of the back of head and right side of the back of head Pain does not radiate. Pain currently is 8 out of 10 on a pain scale. Quality of pain is described as sharp, throbbing, Pain began 2 weeks ago Is continuous. Neuro: Level of Consciousness is awake, alert, obeys commands, Oriented to person, place, time, situation, Bulb Packer are equal bilaterally Moves all extremities. Gait is steady, Speech is normal, Facial symmetry appears normal, Pupils are PERRLA, Intact. Cardiovascular: Capillary refill < 3 seconds Patient's skin is warm and dry. Respiratory: Airway is patent Respiratory effort is even, unlabored. GI: No signs and/or symptoms were reported involving the gastrointestinal system. : No signs and/or symptoms were reported regarding the genitourinary system. EENT: No signs and/or symptoms were reported regarding the EENT system. Derm: No signs and/or symptoms reported regarding the dermatologic system. Vital Signs: 10:25 BP 168 / 51; Pulse 105; Resp 18; Temp 97.9; Pulse Ox 98% ; Weight 58.97 kg; Height 5 ap3 ft. 3 in. (160.02 cm); Pain 8/10; 11:07 BP 134 / 42; Pulse 70; Resp 18; Temp 98.0(TE); Pulse Ox 99% on R/A; Pain 8/10; eh3 12:11 BP 137 / 49; Pulse 65; Resp 18; Pulse Ox 99% on R/A; eh3 13:00 BP 147 / 47; Pulse 64; Resp 18; Pulse Ox 99% on R/A; eh3 14:00 BP 145 / 45; Pulse 60; Resp 18; Pulse Ox 98% on R/A; eh3 10:25 Body Mass Index 23.03 (58.97 kg, 160.02 cm) ap3 [place] Coma Score: 12:04 Eye Response: spontaneous(4). Verbal Response: oriented(5). Motor Response: obeys roxanna commands(6). Total: 15. ED Course: 10:10 Patient arrived in ED. am2 10:27 Triage completed. ap3 10:29 Arm band placed on right wrist. ap3 10:49 Charly Guo MD is Attending Physician. [facility] 10:58 Marcelina Daniel, RN is Primary Nurse. eh3 11:07 Patient has correct armband on for positive identification. Fall risk band placed. Bed eh3 in low position. Call light in reach. Side rails up X2. Adult w/ patient. Client placed on continuous cardiac and pulse oximetry monitoring. NIBP monitoring applied. Door closed. Noise minimized. Warm blanket given. Assisted to bathroom. 11:20 Head C Spine Mpr Wo Con In Process Unspecified. EDMS 12:27 Inserted saline lock: 22 gauge in right hand, using aseptic technique. Blood collected. jd3 12:36 Comprehensive Metabolic Panel Sent. eh3 12:36 CBC with Diff Sent. eh3 14:08 Conrado Hunter MD is Referral Physician. [facility] Administered Medications: 12:20 Drug: NS 0.9% 500 ml Route: IV; Rate: bolus; Site: right hand; eh3 12:20 Drug: Zofran (Ondansetron) 4 mg Route: IVP; Site: right hand; 3 Outcome: 14:07 Discharge ordered by . [facility] 14:20 Patient left the ED. aa5 Signatures: Dispatcher [employer] EDVT Charly Guo MD MD cha Calderon, Audri, RN RN aa5 Ree Ramírez Jonathon, RN RN jd3 Ree Armenta RN RN ap3 Marcelina Daniel RN RN 3
--- NOTE | 2021-10-01 14:08 | EDPHYS ---
Physician Documentation [facility] Name: Erika Jacobson Age: 86 yrs Sex: Female : 1935 Arrival Date: 10/01/2021 Time: 10:10 Bed 4 Private MD: ED Physician Charly Guo HPI: 10/01 11:58 This 86 yrs old Female presents to ER via Ambulatory with complaints of Fall roxanna Injury - 2wks ago, Head Injury-Adult. 11:58 Details of fall: The patient fell from an upright position, while walking. Onset: The roxanna symptoms/episode began/occurred 14 day(s) ago. Associated injuries: The patient sustained injury to the head, neck injury. Severity of symptoms: At their worst the symptoms were mild, in the emergency department the symptoms are unchanged. The patient has experienced similar episodes in the past, several times. Historical: - Allergies: 10:27 No Known Allergies; ap3 - PMHx: 10:27 Asthma; CVA; Hyperlipidemia; Hypertension; ap3 - Immunization history:: Client reports receiving the 2nd dose of the Covid vaccine. - Social history:: Smoking status: Patient denies any tobacco usage or history of. ROS: 11:59 Constitutional: Negative for fever, chills, and weight loss, Eyes: Negative for injury, roxanna pain, redness, and discharge, ENT: Negative for injury, pain, and discharge, Neck: Negative for injury, pain, and swelling, Cardiovascular: Negative for chest pain, palpitations, and edema, Respiratory: Negative for shortness of breath, cough, wheezing, and pleuritic chest pain, Abdomen/GI: Negative for abdominal pain, nausea, vomiting, diarrhea, and constipation, Back: Negative for injury and pain, : Negative for injury, bleeding, discharge, and swelling, MS/Extremity: Negative for injury and deformity, Skin: Negative for injury, rash, and discoloration, Psych: Negative for depression, anxiety, suicide ideation, homicidal ideation, and hallucinations, Allergy/Immunology: Negative for hives, rash, and allergies, Endocrine: Negative for neck swelling, polydipsia, polyuria, polyphagia, and marked weight changes, Hematologic/Lymphatic: Negative for swollen nodes, abnormal bleeding, and unusual bruising. 11:59 Neuro: Positive for headache. Exam: 11:59 Constitutional: This is a well developed, well nourished patient who is awake, alert, roxanna and in no acute distress. Head/Face: Normocephalic, atraumatic. Eyes: Pupils equal round and reactive to light, extra-ocular motions intact. Lids and lashes normal. Conjunctiva and sclera are non-icteric and not injected. Cornea within normal limits. Periorbital areas with no swelling, redness, or edema. ENT: Nares patent. No nasal discharge, no septal abnormalities noted. Tympanic membranes are normal and external auditory canals are clear. Oropharynx with no redness, swelling, or masses, exudates, or evidence of obstruction, uvula midline. Mucous membranes moist. Neck: Trachea midline, no thyromegaly or masses palpated, and no cervical lymphadenopathy. Supple, full range of motion without nuchal rigidity, or vertebral point tenderness. No Meningismus. Chest/axilla: Normal chest wall appearance and motion. Nontender with no deformity. No lesions are appreciated. Cardiovascular: Regular rate and rhythm with a normal S1 and S2. No gallops, murmurs, or rubs. Normal PMI, no JVD. No pulse deficits. Respiratory: Lungs have equal breath sounds bilaterally, clear to auscultation and percussion. No rales, rhonchi or wheezes noted. No increased work of breathing, no retractions or nasal flaring. Abdomen/GI: Soft, non-tender, with normal bowel sounds. No distension or tympany. No guarding or rebound. No evidence of tenderness throughout. Back: No spinal tenderness. No costovertebral tenderness. Full range of motion. Female : Normal external genitalia. Skin: Warm, dry with normal turgor. Normal color with no rashes, no lesions, and no evidence of cellulitis. MS/ Extremity: Pulses equal, no cyanosis. Neurovascular intact. Full, normal range of motion. Psych: Awake, alert, with orientation to person, place and time. Behavior, mood, and affect are within normal limits. 11:59 Neuro: Orientation: is normal, appropriate for stated age, no acute changes, Mentation: is normal, appropriate for stated age, no acute changes, Memory: is normal, appropriate for stated age, no acute changes, Cranial nerves: grossly normal, is grossly normal based on the patient's age, no acute changes, Motor: is normal, is grossly normal based on the patient's age, no acute changes, moves all fours, Sensation: no obvious gross deficits, appropriate no acute changes, Gait: not tested. seizure activity, is not displayed by the patient. 12:26 ECG was reviewed by the Attending Physician. [facility] Vital Signs: 10:25 BP 168 / 51; Pulse 105; Resp 18; Temp 97.9; Pulse Ox 98% ; Weight 58.97 kg; Height 5 ap3 ft. 3 in. (160.02 cm); Pain 8/10; 11:07 BP 134 / 42; Pulse 70; Resp 18; Temp 98.0(TE); Pulse Ox 99% on R/A; Pain 8/10; eh3 12:11 BP 137 / 49; Pulse 65; Resp 18; Pulse Ox 99% on R/A; eh3 13:00 BP 147 / 47; Pulse 64; Resp 18; Pulse Ox 99% on R/A; eh3 14:00 BP 145 / 45; Pulse 60; Resp 18; Pulse Ox 98% on R/A; eh3 10:25 Body Mass Index 23.03 (58.97 kg, 160.02 cm) ap3 Alejandra Coma Score: 12:04 Eye Response: spontaneous(4). Verbal Response: oriented(5). Motor Response: obeys roxanna commands(6). Total: 15. MDM: 10:49 Patient medically screened. roxanna 12:04 Differential diagnosis: C-Spine Fracture Cervical Raiculopathy cluster headache, roxanna intracerebral hemorrhage, migraine, subarachnoid bleed, subdural hematoma, temporal arteritis, tension headache, traumatic injuries, vasomotor headache, cervical strain, Degenerative Disc Disease Neck Contusion Osteoarthritis. Differential diagnosis: abrasion, closed head injury, contusion, fracture, multiple trauma, sprain, strain. Data reviewed: vital signs, nurses notes, lab test result(s), EKG, radiologic studies, CT scan. Data interpreted: bus driver/monitor: rate is 70 beats/min, rhythm is regular, Pulse oximetry: on room air is 99 %. Test interpretation: by ED physician or midlevel provider: ECG. Counseling: I had a detailed discussion with the patient and/or guardian regarding: the historical points, exam findings, and any diagnostic results supporting the discharge/admit diagnosis, lab results, radiology results, the need for outpatient follow up, for definitive care, a family practitioner, a neurologist. 10/01 10:50 Order name: CBC with Diff; Complete Time: 14:07 roxanna 10/01 10:50 Order name: Comprehensive Metabolic Panel; Complete Time: 14:07 roxanna 10/01 10:50 Order name: CT Head C Spine roxanna 10/01 10:55 Order name: Head C Spine Mpr Wo Con; Complete Time: 11:43 EDMS 10/01 12:34 Order name: Urine Dipstick-Ancillary; Complete Time: 14:07 EDMS 10/01 11:55 Order name: Urine Dipstick-Ancillary (obtain specimen); Complete Time: 12:36 roxanna 10/01 11:55 Order name: EKG; Complete Time: 11:55 [facility] 10/01 11:55 Order name: EKG - Nurse/Tech; Complete Time: 12:36 roxanna 10/01 12:57 Order name: Labs - recollect needed: recollect chemistry tube/ hemolyzed; Complete eb Time: 13:17 EC:26 Rate is 70 beats/min. Rhythm is regular. QRS Batson is Normal. CA interval is normal. QRS roxanna interval is normal. QT interval is normal. No Q waves. T waves are Normal. No ST changes noted. Clinical impression: NSR w/ Non-specific ST/T Changes and No evidence of ischemia. Interpreted by me. Reviewed by me. Administered Medications: 12:20 Drug: NS 0.9% 500 ml Route: IV; Rate: bolus; Site: right hand; 3 12:20 Drug: Zofran (Ondansetron) 4 mg Route: IVP; Site: right hand; [facility] Disposition Summary: 10/01/21 14:07 Discharge Ordered Location: Home roxanna Problem: new roxanna Symptoms: have improved roxanna Condition: Stable roxanna Diagnosis - Headache roxanna - Fall on same level, unspecified roxanna Followup: roxanna - With: Private Physician - When: 2 - 3 days - Reason: Recheck today's complaints, Continuance of care, Re-evaluation by your physician Followup: roxanna - With: Conrado Hunter MD - When: 2 - 3 days - Reason: Recheck today's complaints, Re-evaluation by your physician Discharge Instructions: - Discharge Summary Sheet roxanna - General Headache Without Cause roxanna - General Headache Without Cause, [id number] roxanna - Fall Prevention in the Home, Adult roxanna - Fall Prevention in the Home, Adult, [id number] [facility] Forms: - Medication Reconciliation Form roxanna - Thank You Letter roxanna - Antibiotic Education roxanna - Prescription Opioid Use [facility] Prescriptions: - Tylenol 325 mg Oral Tablet - take 2 tablets by ORAL route every 6 hours as needed; 1 bottle; Refills: 0, roxanna Product Selection Permitted - Zofran 4 mg Oral Tablet - take 1 tablet by ORAL route every 12 hours As needed; 20 tablet; Refills: 0, roxanna Product Selection Permitted Signatures: Dispatcher [employer] Charly Biswas MD MD cha Prokisch, Amanda RN RN ap3 Ivet [place] Erin RN RN eh3
[2021-10-01 15:08] VITALS: BP 134/42; TEMP 98; O2SAT 99
--- NOTE | 2021-10-02 08:57 | EKG ---
Test Date: 2021-10-01 Test Time: 12:17:41 Sheet Hanger: FRANCISCO MEASUREMENT RESULTS: Intervals: Rate: 70 ID: [id number] QRSD: 138 QT: 446 QTc: 481 [place]: P: 66 ID: [id number] QRS: -53 T: 85 INTERPRETIVE STATEMENTS: Sinus rhythm with occasional premature ventricular complexes Left axis deviation Left bundle branch block Abnormal ECG Compared to ECG 08/13/2021 18:28:37 Ventricular premature complex(es) now present Left-axis deviation now present Sinus arrhythmia no longer present Electronically Signed On 10-02-21 08:56:01 CDT by Marcel Dean
== END 2021-10-01 14:20 | disposition home or self-care (01) ==
LOC: ER 10:07
DX: R51.9 Headache, unspecified (principal); W18.30XA Fall on same level, unspecified, initial encounter; I10 Essential (primary) hypertension; Z86.73 Personal history of transient ischemic attack (TIA), and cerebral infarction without residual deficits
CPT/HCPCS: 93005; 85025; 36415; 81003; 80053; 70450; 72125; 96374; 99284; J7030; J2405

== ENCOUNTER 2021-10-10 19:48 | Emergency (ER) | payer OTHER ==
--- OUTSIDE RECORDS SUMMARY | 2021-10-10 20:22 | XMS REPORT | Continuity of Care Document ---
:1935 Author Organization [facility] t Address [address] [place] [address] Care Team Providers Name Role Phone Carmelita MURGUIA, Wu Primary Care Physician LILIANA LI Attending Clinician Unavailable MICHAEL MATT Attending Clinician Unavailable MICHAEL MATT Attending Clinician Unavailable Angela Rodas MD Attending Clinician Doctor Unassigned, [place] Attending Clinician Unavailable Adams Germain MD Attending Clinician ADAMS GERMAIN Attending Clinician Unavailable Beto MURGUIA, Daniel Attending Clinician Provider, [facility] Attending Clinician Unavailable Sarahi MURGUIA, Johan Goyal Attending Clinician Ethan Scott DO Attending Clinician 1, [facility] Attending Clinician Unavailable Lab, [facility] Fam Pob I Attending Clinician Unavailable Renata Thacker Attending Clinician Unavailable Mirella Villalobos Attending Clinician [phone] Shy Miller Attending Clinician Unavailable LILIANA LI Admitting Clinician Unavailable ADRIANA HARTMANN Admitting Clinician Unavailable Payers Payer Name Policy Type Policy Number Effective Date Expiration Date S kim Sliding Fee - Cat P [id number] 2019 2020 1 00:00:00 00:00:00 AARP/MEDICARE [id number] 2019 COMPLETE 00:00:00 WELLMED/AARP [id number] 2019 MEDICARE 00:00:00 ADVANTAGE MEDICAID OF [place] [id number] 2017 00:00:00 [id number] Problems Condition Condition Condition Status Onset Resolution Last Treating Co mments Source Name Details Category Date Date Treatment Clinician Date Obesity Obesity Disease Active Univers (BMI (BMI 5-28 ity of 30-39.9) 30-39.9) 00:00: [place] 00 Medical Branch Uses Uses Disease Active Univers Thai as Thai as 5-28 it y of primary primary [...] hypothyro[place] dis[place] dism [place] Memory Memory Disease Active 2020-0 Univers impairment impairment 9-25 it y of 00:00: [place] [facility] Hair loss Hair loss Disease Active Uni vers 9-25 ity of 00:00: [place] [facility] COVID-19 COVID-19 Disease Active Unive rs virus virus 7-20 [place] of infection [place] GERD GERD Disease Active Univers (gastroeso (gastroeso 7-20 it y of phageal phageal 00:00: [place] reflux reflux 00 Medical disease) disease) Branch Neuropathy Neuropathy Disease Active U nivers of both of both 7-20 ity of feet feet 00:00: [place] [facility] Abdominal Abdominal Disease Active [facility] Sepsis Sepsis Disease Active [facility] Center Hypertensi Hypertensi Disease Active [facility]25 [facility] 00:00: [facility] Center Ureteropel Ureteropel Disease Active [facility] bessie bessie 5-25 [facility] junction junction 00:00: Medica l (UPJ) (UPJ) 00 Center obstructio obstructio n, left n, left Bilateral Bilateral Disease Active 2018-02 Uni vers foot pain foot pain 1-26 ity of 00:00: [place] [facility] Kidney Kidney Disease Active 2017-02 Univers stone stone 0-15 ity of 00:00: [place] [facility] Abnormal Abnormal Disease Active 2017-02 Overview: Un briana liver liver 0-15 Formattin ity of ultrasound ultrasound 00:00: g of this note Medical might be Branch different from the original. Likely hepatic steatosis with focal areas of fatty sparing Weakness Weakness Disease Active Unive rs 4-25 ity of 00:00: [place] [facility] 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 0-05 it y of 2 diabetes 2 diabetes [place] mellitus mellitus 00 Medica l Branch Essential Essential Disease Active 2016-02 Uni vers hypertensi hypertensi 0-02 it y of on on 00:00: [place] [facility] HLD HLD Disease Active 2016-02 Univers (hyperlipi (hyperlipi 0-02 it y of demia) demia) 00:00: 00 Medical Branch History of History of Disease Active 2016-02 U nivers chest pain chest pain 0-02 it y of 00:00: [place] [facility] Palpitatio Palpitatio Disease Active 2016-02 U nivers ns ns 0-02 ity of 00:00: [place] [facility] Osteoporos Osteoporos Disease Active U nivers is is ity of [facility] Abnormal Abnormal Disease Active Unive rs EKG EKG ity of [facility] No known No known Disease [facility] active active College problems problems of Medicin e Allergies, Adverse Reactions, Alerts Allergy Allergy Status Severity Reaction(s) Onset Inactive Treating Comm ents Source Name Type Date Date Clinician NO KNOWN Drug Active Univers ALLERGIE Class ity of [facility] NO KNOWN Allergy Active [facility] ALL[facility] Social History Social Habit Start Date Stop Date Quantity Comments Source History SDOH [facility] Alcohol Std Medical Cent[facility] r Drinks History SDOH [facility] Alcohol Binge Medical Marilyn ter History SDOH [facility] Alcohol Comment Medical C enter Exposure to 2021-08-31 2021-09-10 Not sure University of SARS-CoV-2 00:00:00 16:05:00 [facility] (event) [place] Alcohol intake 2019-07-12 2019-07-[address] [facility] es 00:00:00 00:00:00 non-drinker of Medical Ce nter alcohol (finding) History SDOH 2019-07-10 2019-07-[address] [facility] Alcohol Frequency 00:00:00 00:00:00 [facility] Tobacco use and 2019-07-09 2019-07-[address] [facility] [facility] kes exposure 00:00:00 00:00:00 [facility] Sex Assigned At [address] [facility] 00:00:00 00:00:00 [facility] Center Smoking Status Start Date Stop Date Source Never smoked tobacco [facility] ege of Medicine Medications Ordered Filled Start Stop Current Ordering Indication Dosage Frequency Signature Comments Components Source Medication Medication Date Date Medication? Clinician (SIG) Name Name metFORMIN Yes 500mg Take 1 Unive rs 500 mg 24 7-29 tablet by ity o f hr tablet 00:00: mouth [place] 00 daily with Medical breakfast. Branch metFORMIN Yes 500mg Take 1 Unive rs 500 mg 24 7-29 tablet by ity o f hr tablet 00:00: mouth [place] 00 daily with Medical breakfast. Branch metFORMIN Yes 500mg Take 1 Unive rs 500 mg 24 7-29 tablet by ity o f hr tablet 00:00: mouth [place] 00 daily with Medical breakfast. Branch losartan 50 Yes [id number] 50mg Take 1 Univers mg tablet 7-15 tablet by ity o f 00:00: mouth [place] 00 daily. Medical Branch losartan 50 0 Yes [id number] 50mg Take 1 Univers mg tablet 7-15 tablet by ity o f 00:00: mouth [place] 00 daily. Medical Branch losartan 50 Yes [id number] 50mg Take 1 Univers mg tablet 7-15 tablet by ity o f 00:00: mouth [place] 00 daily. Medical Branch clotrimazol 2021- No [id number] Apply to Univers e 1 % 7-15 07-30 area(s) 2 ity of topical 00:00: 04:59 (two) [place] cream 00 :00 times Medical daily for Branch 14 days. Magnesium Yes Take by [facility] 100 MG CAPS 3-21 mouth. Colleg e 10:29: of 08 Medicin e Melatonin Yes Take by [facility] 10 MG TABS 3-21 mouth. College 10:29: of 08 Medicin e furosemide Yes 40mg Take 1 Unive rs 40 mg 3-17 tablet by ity of tablet 00:00: mouth [place] 00 daily. Medical Branch furosemide Yes 40mg Take 1 Unive rs 40 mg 3-17 tablet by ity of tablet 00:00: mouth [place] 00 daily. Medical Branch furosemide Yes 40mg Take 1 Unive rs 40 mg 3-17 tablet by ity of tablet 00:00: mouth [place] 00 daily. Medical Branch ATORVASTATI 2020-02 Yes [id number] 40mg TAKE 1 Univers N 40 mg 2-13 TABLET BY ity of tablet 00:00: MOUTH AT [place] 00 BEDTIME Medical Branch ATORVASTATI 2020-02 Yes [id number] 40mg TAKE 1 Univers N 40 mg 2-13 TABLET BY ity of tablet 00:00: MOUTH AT [place] 00 BEDTIME Medical Branch ATORVASTATI 2020-02 Yes [id number] 40mg TAKE 1 Univers N 40 mg 2-13 TABLET BY ity of tablet 00:00: MOUTH AT [place] 00 BEDTIME Medical Branch azelastine 2020-02 Yes [id number] 1{spray Use 1 Univers 137 mcg 2-02 } [place] in ity of (0.1 %) 00:00: each [place] nasal spray 00 nostril 2 Med ical (two) Branch times daily. Use in each nostril as directed fluticasone 2020-02 Yes [id number] 2{puff} Inhale 2 Univers propionate 2-02 Puffs 2 ity of (FLOVENT 00:00: (two) [place] HFA) 44 00 times Medical mcg/actuati daily. Branch on inhaler Rinse mouth after each use. azelastine 2020-02 Yes [id number] 1{spray Use 1 Univers 137 mcg 2-02 } [place] in ity of (0.1 %) 00:00: each [place] nasal spray 00 nostril 2 Med ical (two) Branch times daily. Use in each nostril as directed fluticasone 2020-02 Yes [id number] 2{puff} Inhale 2 Univers propionate 2-02 Puffs 2 ity of (FLOVENT 00:00: (two) [place] HFA) 44 00 times Medical mcg/actuati daily. Branch on inhaler Rinse mouth after each use. azelastine 2020-02 Yes [id number] 1{spray Use 1 Univers 137 mcg 2-02 } [place] in ity of (0.1 %) 00:00: each [place] nasal spray 00 nostril 2 Med ical (two) Branch times daily. Use in each nostril as directed fluticasone 2020-02 Yes [id number] 2{puff} Inhale 2 Univers propionate 2-02 Puffs 2 ity of (FLOVENT 00:00: (two) [place] HFA) 44 00 times Medical mcg/actuati daily. Branch on inhaler Rinse mouth after each use. Magnesium 2020-02 Yes Take by [facility] 100 MG CAPS 1-10 mouth. Colleg e 15:46: of 22 Medicin e Melatonin 2020-02 Yes Take by [facility] 10 MG TABS 1-10 mouth. College 15:46: of 22 Medicin e oxybutynin 2020-02 Yes 10mg Take 1 [facility] (DITROPAN 1-10 Tablet by [facility] XL) 10 MG 00:00: mouth of CR tablet 00 daily. Medicin e oxybutynin 2020-02 Yes 10mg Take 1 [facility] (DITROPAN 1-10 Tablet by [place] XL) 10 MG 00:00: mouth of CR tablet 00 daily. Medicin e albuterol Yes [id number] 2{puff} Inhale 2 Univers (PROAIR 9-03 Puffs ity of HFA) 90 00:00: every 6 [place] mcg/actuati 00 (six) Medical on inhaler hours as Branc h needed for Wheezing or Shortness of Breath. albuterol Yes [id number] 2{puff} Inhale 2 Univers (PROAIR 9-03 Puffs ity of HFA) 90 00:00: every 6 [place] mcg/actuati 00 (six) Medical on inhaler hours as Branc h needed for Wheezing or Shortness of Breath. albuterol Yes [id number] 2{puff} Inhale 2 Univers (PROAIR 9-03 Puffs ity of HFA) 90 00:00: every 6 [place] mcg/actuati 00 (six) Medical on inhaler hours as Branc h needed for Wheezing or Shortness of Breath. amLODIPine Yes [id number] 2.5mg Take 1 Univers 2.5 mg 6-07 tablet by ity of tablet 00:00: mouth [place] 00 daily. Medical Branch amLODIPine Yes [id number] 2.5mg Take 1 Univers 2.5 mg 6-07 tablet by ity of tablet 00:00: mouth [place] 00 daily. Medical Branch amLODIPine Yes [id number] 2.5mg Take 1 Univers 2.5 mg 6-07 tablet by ity of tablet 00:00: mouth [place] 00 daily. Medical Branch hydrochloro 2020-2020- No 25mg Take 25 mg [facility] thiazide 3-22 03-22 by mouth Colleg e (HYDRODIURI 16:58: 00:00 daily. of L) 25 MG 25 :00 Medicin tablet e Magnesium Yes Take by [facility] 100 MG CAPS 05-04 mouth. Colleg e 15:58: of 46 Medicin e Melatonin 2021-0 Yes Take by [facility] 10 MG TABS 3-22 mouth. [place] 15:58: of 46 Medicin e Potassium 0 Yes Take 2 Art Citrate 3-22 tablets PO Colleg e (UROCIT-K 00:00: TID of 10) 10 MEQ 00 Medicin (1080 MG) e TBCR oxybutynin 2020-0 Yes 10mg Take 1 [facility] (DITROPAN 3-22 Tablet by [facility] XL) 10 MG 00:00: mouth of CR tablet 00 daily. Medicin e hydrochloro 0 Yes 25mg Take 1 [facility] thiazide 3-22 Tablet by Colleg e (HYDRODIURI 00:00: mouth of L) 25 MG 00 daily. Medicin tablet e Potassium Yes Take 2 [facility] Citrate 3-22 tablets PO Colleg e (UROCIT-K 00:00: TID of 10) 10 MEQ 00 Medicin (1080 MG) e TBCR hydrochloro 0 Yes 25mg Take 1 [facility] or thiazide 3-22 Tablet by Colleg e (HYDRODIURI 00:00: mouth of L) 25 MG 00 daily. Medicin tablet e Potassium Yes Take 2 [facility] Citrate 3-22 tablets PO Colleg e (UROCIT-K 00:00: TID of 10) 10 MEQ 00 Medicin (1080 MG) e TBCR hydrochloro 0 Yes 25mg Take 1 [facility] th[facility] 3-[facility]:00: mouth of L) 25 MG 00 daily. Medicin tablet e oxybutynin 2020-0 2020- No 10mg Take 1 [facility] (DITROPAN 3-22 11-10 Tablet by [facility] XL) 10 MG 00:00: 00:00 mouth of CR tablet 00 :00 daily. Medicin e hydrochloro 2019- Yes 25mg Take 25 mg [facility] thiazide 1-23 by [facility] [place]HYDRODIURI 17:00: daily. of L) 25 MG 06 Medicin tablet e Magnesium 2019- Yes Take by [facility] 100 MG CAPS 1-23 mouth. [facility] 17:00: of Medicin e Melatonin 2019-02 Yes Take by [facility] 10 MG TABS 1-23 mouth. College 17:00: of 06 Medicin e Potassium 2019-02 Yes Take 2 [facility] Citrate 1-23 tablets PO Colleg e (UROCIT-K 00:00: TID of 10) 10 MEQ 00 Medicin (1080 MG) e TBCR Potassium 2019-02- No Take 2 [facility] Citrate 1-23 03-22 tablets PO Colle ge (UROCIT-K 00:00: 00:00 TID of 10) 10 MEQ 00 :00 Medicin (1080 MG) e TBCR levothyroxi 2019-02 Yes 25ug Take 25 Drew raul ne 1-02 mcg by [place] (SYNTHROID) 00:00: mouth. of 25 MCG 00 Medicin tablet e levothyroxi 2019-02 Yes 25ug Take 25 Drew raul ne 1-02 mcg by [place] (SYNTHROID) 00:00: mouth. of 25 MCG 00 Medicin tablet e levothyroxi 2019-02- No 25ug Take 25 Ba ylor ne 1-02 11-10 mcg by [place] (SYNTHROID) 00:00: 00:00 mouth. of 25 MCG 00 :00 Medicin tablet e aspirin 81 2019-02 Yes [id number] 81mg Take 1 Univers mg chewable 0-01 [id number] tablet by i ty of tablet 00:00: mouth [place] 00 daily. Medical Branch aspirin 81 2019-02 Yes [id number] 81mg Take 1 Univers mg chewable 0-01 [id number] tablet by i ty of tablet 00:00: mouth [place] 00 daily. Medical Branch aspirin 81 2019-02 Yes [id number] 81mg Take 1 Univers mg chewable 0-01 [id number] tablet by i ty of tablet 00:00: mouth [place] 00 daily. Medical Branch atorvastati 2020-0 Yes Art n (LIPITOR) 6-13 College 40 MG 00:00: of tablet 00 Medicin e atorvastati 2020-0 Yes [facility] n (LIPITOR) 6-13 College 40 MG 00:00: of tablet 00 Medicin e atorvastati 2020-0 Yes Art n (LIPITOR) 6-13 College 40 MG 00:00: of tablet 00 Medicin e atorvastati 2020-0 Yes Art n (LIPITOR) 6-13 College 40 MG 00:00: of tablet 00 Medicin e atorvastati 2020-0 Yes Art n (LIPITOR) 6-13 College 40 MG 00:00: of tablet 00 Medicin e amlodipine 2020-0 Yes [facility] (NORVASC) 5 6-02 College MG tablet 00:00: of 00 Medicin e amlodipine 2020-0 Yes [facility] (NORVASC) 5 6-02 College MG tablet 00:00: of 00 Medicin e amlodipine 2020-0 Yes [facility] (NORVASC) 5 6-02 College MG tablet 00:00: of 00 Medicin e amlodipine 2020-0 Yes [facility] College MG tablet 00:00: of 00 Medicin e amlodipine 2020-0 Yes [facility] (NORVASC) 5 6-02 College MG tablet 00:00: of 00 Medicin e losartan 2020-0 Yes [facility] (COZAAR) 5-30 College 100 MG 00:00: of tablet 00 Medicin e losartan 2020-0 Yes [facility] (COZAAR) 5-30 College 100 MG 00:00: of tablet 00 Medicin e losartan 2020-0 Yes [facility] (COZAAR) 5-30 College 100 MG 00:00: of tablet 00 Medicin e losartan 2020-0 Yes [facility] (COZAAR) 5-30 College 100 MG 00:00: of tablet 00 Medicin e losartan 2020-0 Yes [facility] (COZAAR) 5-30 College 100 MG 00:00: of tablet 00 Medicin e losartan 2020-0 Yes [facility]mg QD [facility].5 [facility] 100 MG 00:00: (50 mg Medical tablet 00 total) by Center mouth daily. losartan 2020-0 Yes 50mg QD Take 0.5 [facility] (COZAAR) 5-29 tablets [facility] 100 MG 00:00: (50 mg Medical tablet 00 total) by Center mouth daily. (AMOXICILLI 2020-0 Yes Mirella 4 tablets [facility]) 500 MG 5-12 Jono by mouth Comm uni CAPS 00:00: Wilfredo every 1 hr ty 00 prior to Health appointmen t for premedicat ion hydrALAZINE 2020-0 Yes 50mg [id number] Take [address] [facility] (APRESOLINE 2-17 [id number] by mouth 3 [facility] ) 50 MG 00:00: 3D (three) Medical tablet 00 times Center daily . hydroCHLORO 2020-0 Yes 25mg QD Take [address] [facility] [address] thiazide 2-17 by mouth [facility]ukes (HYDRODIURI 00:00: daily. Medi angelica L) 25 MG 00 Center tablet hydrALAZINE 2020-0 Yes 50mg [id number] Take [address] [facility] [facility] (APRESOLINE 2-17 [id number] by mouth 3 [facility] ) 50 MG 00:00: 3D (three) Medical tablet 00 times Center daily . hydroCHLORO 2020-0 Yes 25mg QD Take [address] [address] thiazide 2-17 by mouth [facility]ukes (HYDRODIURI 00:00: daily. Medi angelica L) 25 MG 00 Center tablet aspirin 81 2019-0 Yes 81mg QD Take [address] MG chewable 6-21 by mouth Luke s tablet 00:00: daily. Medical 00 [place] aspirin EC 2019-0 Yes 81mg Take 81 [...] tablet 00:00: of 00 Medicin e aspirin 81 2019-0 Yes 81mg QD Take [address] MG chewable 6-21 by mouth Luke s tablet 00:00: daily. Medical 00 [place] atorvastati 2017-02 Yes 40mg QD Take [address] n (LIPITOR) 1-30 by mouth Luke s 40 MG 00:00: daily. Medical tablet 00 [place] amLODIPine 2017-02 Yes 2.5mg QD Take 2.[address] (NORVASC) 5 1-30 mg by [facility] MG tablet 00:00: mouth Medical 00 daily . [place] atorvastati 2017-02 Yes 40mg QD Take [address] n (LIPITOR) 1-30 by mouth Luke s 40 MG 00:00: daily. Medical tablet 00 [place] amLODIPine 2018- Yes 2.5mg QD Take 2.[address] (NORVASC) 5 1-30 mg by [facility] MG tablet 00:00: mouth Medical 00 daily . Center Immunizations Ordered Filled Immunization Date Status Comments [facility] e Immunization Name Name SARS-COV-2 COVID-19 2021-01-15 Completed Unive rsity of MODERNA 0.25ML 00:00:00 [facility] [place] [facility] angelica BOOSTER VACCINE Branch SARS-COV-2 COVID-19 2021-01-15 Completed Unive rsity of MODERNA 0.25ML 00:00:00 [facility] [place] [facility] angelica BOOSTER VACCINE Branch SARS-COV-2 COVID-19 2021-01-15 Completed Unive rsity of MODERNA 0.25ML 00:00:00 [facility] [place] [facility] angelica BOOSTER VACCINE Branch Influenza High Dose 2019-11-08 Completed Unive rsity of [place] 00:00:00 [facility] Influenza High Dose 2019-11-08 Completed Unive rsity of [place] 00:00:00 [facility] Influenza High Dose 2019-11-08 Completed Unive rsity of [place] 00:00:00 [facility] Influenza High Dose 2019-02-13 Completed Unive rsity of 00:00:00 [facility] Influenza High Dose 2019-02-13 Completed Unive rsity of 00:00:00 [facility] Influenza High Dose 2019-02-13 Completed Unive rsity of 00:00:00 [facility] TDAP 2017-11-10 Completed University of 00:00:00 [facility] TDAP 2017-11-10 Completed University of 00:00:00 [facility] TDAP 2017-11-10 Completed University of 00:00:00 [facility] Pneumococcal 2017-06-09 Completed University o f Polysaccharide, 00:00:00 [place] Med ical PPSV23 (PNEUMOVAX) Branch Pneumococcal 2017-06-09 Completed University o f Polysaccharide, 00:00:00 [place] Med ical PPSV23 (PNEUMOVAX) Branch Pneumococcal 2017-06-09 Completed University o f Polysaccharide, 00:00:00 [facility] ical PPSV23 (PNEUMOVAX) Branch Influenza High Dose 2016-11-14 Completed Unive rsity of 00:00:00 [facility] Influenza High Dose 2016-11-14 Completed Unive rsity of 00:00:00 [facility] Influenza High Dose 2016-11-14 Completed Unive rsity of 00:00:00 [facility] Vital Signs Vital Name Observation Time Observation Value Comments Source HEIGHT 2019-07-08 00:00:00 147.3 cm WEIGHT 2019-07-08 00:00:00 57.743 kg Systolic blood 2021-09-10 21:07:00 121 mm[Hg] Univer sity of pressure [facility] Diastolic blood 2021-09-10 21:07:00 66 mm[Hg] Unive rsity of pressure [facility] Heart rate 2021-09-10 21:07:00 79 /min Universi ty of [facility] Body temperature 2021-09-10 21:07:00 36.94 Monique Univ ersity of [facility] Body height 2021-09-10 21:07:00 160 cm Universi ty [facility] Body weight 2021-09-10 21:07:00 61.689 kg Universi ty [facility] BMI 2021-09-10 21:07:00 24.09 kg/m2 Universi ty [facility] Oxygen saturation in 2021-09-10 21:07:00 97 /min [facility] Arterial blood by [facility] Pulse oximetry Branch Systolic blood 2021-05-03 15:25:00 121 mm[Hg] [facility] Medicine Diastolic blood 2021-05-03 15:25:00 65 mm[Hg] [facility] Medicine Heart rate 2021-05-03 15:25:00 88 /min [facility] Systolic blood 2020-12-23 21:48:00 137 mm[Hg] [facility] Medicine Diastolic blood 2020-12-23 21:48:00 69 mm[Hg] [facility] Medicine Heart rate 2020-12-23 21:48:00 73 /min [facility] Body temperature 2020-12-23 21:48:00 36.83 Monique [facility] Respiratory rate 2020-12-23 21:48:00 15 /min [facility] Body height 2020-12-23 21:48:00 162.6 cm [facility] Body weight 2020-12-23 21:48:00 58.968 kg [facility] BMI 2020-12-23 21:48:00 22.31 kg/m2 [facility] ollege of [facility] Systolic blood 2020-05-04 15:57:00 131 mm[Hg] [facility] pressure Medicine Diastolic blood 2020-05-04 15:57:00 60 mm[Hg] [facility] pressure Medicine Heart rate 2020-05-04 15:57:00 67 /min [facility] ollege of Medicine Respiratory rate 2020-05-04 15:57:00 18 /min [facility] Body height 2020-05-04 15:57:00 147.3 cm [facility] ollege of [facility] Body weight 2020-05-04 15:57:00 58.514 kg [facility] ollege of [facility] BMI 2020-05-04 15:57:00 26.96 kg/m2 [facility] ollege of [facility] Systolic blood 2020-01-06 16:58:00 146 mm[Hg] [facility] Medicine Diastolic blood 2020-01-06 16:58:00 71 mm[Hg] [facility] Medicine Heart rate 2020-01-06 16:58:00 88 /min [facility] ollege of Medicine Body temperature 2020-01-06 16:58:00 36.44 Monique [facility] Respiratory rate 2020-01-06 16:58:00 16 /min [facility] Body height 2020-01-06 16:58:00 144[facility]8 [facility] Body weight 2020-01-06 16:58:00 58.968 [facility] BMI 2020-01-06 16:58:00 28.13 kg[facility]m2 [facility] Systolic blood 2020-01-06 16:58:00 146 mm[Hg] [facility] pressure Medicine Diastolic blood 2020-01-06 16:58:00 71 mm[Hg] [facility] pressure Medicine Heart rate 2020-01-06 16:58:00 88 /min [facility] ollege of Medicine Body temperature 2020-01-06 16:58:00 36.44 Monique [facility] Respiratory rate 2020-01-06 16:58:00 16 /min [facility] Body height 2020-01-06 16:58:00 144.8 cm [facility] ol[facility] of Medicine Body weight 2020-01-06 16:58:00 58.968 kg [facility] ol[facility] of Medicine BMI 2020-01-06 16:58:00 28.13 kg/m2 [facility] ollege of Medicine Systolic blood 2019-10-07 14:05:00 127 mm[Hg] [facility] pressure Medicine Diastolic blood 2019-10-07 14:05:00 67 mm[Hg] [facility] Medicine Heart rate 2019-10-07 14:05:00 70 /min [facility] ol[facility] of Medicine Body temperature 2019-10-07 14:05:00 36.39 Monique [facility] Respiratory rate 2019-10-07 14:05:00 16 /min [facility] Body height 2019-10-07 14:05:00 162.6 cm [facility] ollege of [facility] Body weight 2019-10-07 14:05:00 58.968 kg [facility] ol[facility] of Medicine BMI 2019-10-07 14:05:00 22.31 kg/m2 [facility] ol[facility] of Medicine Systolic blood 2019-10-07 14:05:00 127 mm[Hg] [facility] Medicine Diastolic blood 2019-10-07 14:05:00 67 mm[Hg] [facility] Medicine Heart rate 2019-10-07 14:05:00 70 /min [facility] [facility] Body temperature 2019-10-07 14:05:00 36.39 Monique [facility] Respiratory rate 2019-10-07 14:05:00 16 /min [facility] Body height 2019-10-07 14:05:00 162.6 cm [facility] Body weight 2019-10-07 14:05:00 58.968 kg [facility] BMI 2019-10-07 14:05:00 22.31 kg/m2 [facility] HEIGHT 2019-07-08 00:00:00 147.3 cm WEIGHT 2019-07-08 00:00:00 57.743 kg pulse rate 2019-07-01 08:14:01 80 /min [facility] blood pressure, 2019-07-01 08:14:01 71 mm[Hg] [facility] blood pressure, 2019-07-01 08:14:01 171 mm[Hg] [facility] pulse rate 2019-06-25 09:35:00 76 /min [facility] blood pressure, 2019-06-25 09:35:00 77 mm[Hg] [facility] blood pressure, 2019-06-25 09:35:00 153 mm[Hg] [facility] Procedures Procedure Date / Time Performing Clinician Source Performed MEDICATION CORRESPONDENCE 2021-09-13 05:01:00 Doctor Unassigned, [facility] POCT URINALYSIS DIPSTICK 2020-12-23 00:00:00 Adams Germain [facility] POCT URINALYSIS DIPSTICK 2020-12-23 00:00:00 [facility] POCT URINALYSIS DIPSTICK 2020-01-06 00:00:00 Adams Germain [facility] BASIC METABOLIC PANEL 2019-10-07 14:32:00 Adams Germain [facility] MAGNESIUM 2019-10-07 14:32:00 Adams Germain [facility] URIC ACID 2019-10-07 14:32:00 Adams Germain [facility] Plan of Care Planned Activity Planned Date Details Comments Source Future Scheduled 2027-11-11 DTAP/TDAP/TD [facility] 00:[facility]:00 VACCINES (2 - Td or Medical Center Tdap) [code = DTAP/TDAP/TD VACCINES (2 - Td or Tdap)] Future Scheduled 2027-11-11 DTAP/TDAP/TD [facility] Test 00:00:00 VACCINES (2 - Td or Medical Center Tdap) [code = DTAP/TDAP/TD VACCINES (2 - Td or Tdap)] Future Scheduled 2021-10-[address] [facility] Test 00:00:00 (#1) [code = Medical Center INFLUENZA VACCINE (#1)] Future Scheduled 2021-05-04 ZOSTER VACCINE (1 of [facility] Test 15:51:29 2) [code = ZOSTER of Medicin e VACCINE (1 of 2)] Future Scheduled 2021-05-04 Screening for [facility] Col [facility]ge Test 15:51:29 osteoporosis of Medicine (procedure) [code = 124930302] Future Scheduled 2021-05-04 Pneumococcal 65+ (1 [employer] Test 15:51:29 of 1 - PPSV23) [code of Medi cine = Pneumococcal 65+ (1 of 1 - PPSV23)] Future Scheduled 2021-05-04 MEDICARE AWV [facility] Kristine ege Test 15:51:29 (Initial) [code = of Medicin e MEDICARE AWV (Initial)] Future Scheduled 2021-05-04 FLU VACCINE > 6 [facility] C [facility]lege Test 15:51:29 MONTHS [code [...] Medicine Future Scheduled 2021-05-04 TETANUS SHOT (ADULT) [employer] Test 15:51:29 [code = TETANUS SHOT of Medi cine (ADULT)] Future Scheduled 2021-05-04 US RENAL BILATERAL Expected: [employer] Test 00:00:00 [code = 94670] 05/04/2021, of Medicine Expires: 05/04/2021 Future Scheduled 2021-02-[address] [facility] Test 00:00:00 (12+) [code = Medical Center DEPRESSION SCREENING (12+)] Future Scheduled 2021-02-13 FALLS RISK SCREENING [facility] Test 00:00:00 [code = FALLS RISK Medical C enter SCREENING] Future Scheduled 2021-01-03 COVID-19 Vaccine (1) [employer] Test 08:34:34 [code = COVID-19 of Medicine Vaccine (1)] Future Scheduled 2021-01-03 ZOSTER VACCINE (1 of [employer] Test 08:34:34 2) [code = ZOSTER of Medicin e VACCINE (1 of 2)] Future Scheduled 2021-01-03 Screening for [facility] [employer] Test 08:34:34 osteoporosis of Medicine (procedure) [code = 672367383] Future Scheduled 2021-01-03 Pneumococcal 65+ (1 [employer] Test 08:34:34 of 1 - PPSV23) [code of Medi cine = Pneumococcal 65+ (1 of 1 - PPSV23)] Future Scheduled 2021-01-03 MEDICARE AWV [facility] [employer] Test 08:34:34 (Initial) [code = of Medicin e MEDICARE AWV (Initial)] Future Scheduled 2021-01-03 FLU VACCINE > 6 [facility] C [facility] Test 08:34:34 MONTHS [code = FLU of Medici ne VACCINE > 6 MONTHS] Future Scheduled 2021-01-03 FALL SCREEN [code = [facility] or [place] Test 08:34:34 FALL SCREEN] of Medicine Future Scheduled 2021-01-03 TETANUS SHOT (ADULT) [facility] Test 08:34:34 [code = TETANUS SHOT of Medi cine (ADULT)] Future Scheduled 2020-10-[address] [facility] Test 00:00:00 (#1) [code = Medical Center INFLUENZA VACCINE (#1)] Diagnostic Test 2020-07-11 US RENAL BILATERAL Expected: [facility] Pending 00:00:00 [code = 40866] 07/11/2020, of Medicine Expires: 01/11/2021 Future Scheduled 2020-05-[address] [facility] Test 00:00:00 WELLNESS (YEAR 2 or Medical Center FIRST YEAR if no IPPE) [code = MEDICARE ANNUAL WELLNESS (YEAR 2 or FIRST YEAR if no IPPE)] Future Scheduled 2020-05-[address] [...] RISK Medical C enter SCREENING] Future Scheduled 2018-06-09 PNEUMOCOCCAL 65+ YRS [facility] Test 00:00:00 (2 - PCV) [code = Medical Ce nter PNEUMOCOCCAL 65+ YRS (2 - PCV)] Future Scheduled 1986 SHINGLES VACCINES ([address] [facility] Test 00:00:00 of 2) [code = Medical Center SHINGLES VACCINES (1 of 2)] Future Scheduled 1986 SHINGLES VACCINES ([address] [facility] Test 00:00:00 of 2) [code = [facility] Center SHINGLES VACCINES (1 of 2)] Future Scheduled 1948 COVID-19 VACCINE (1) [facility] Test 00:00:00 [code = COVID-[address] [facility] ter VACCINE (1)] Future Scheduled 1936 COVID-[address] [facility] Test 00:00:00 (#1) [code = Medical Center COVID-19 VACCINE (#1)] Future Scheduled 1936 DXA SCAN [code = DXA [facility] Test 00:00:00 SCAN] [facility] Future Scheduled PTH,INTACT,WITH Ordered: [facility] C [facility]lege Test CALCIUM,PO4,CREAT 10/07/2019 of Medicin e [code = NOCPT] Future Scheduled TETANUS SHOT (ADULT) [employer] Test [code = TETANUS SHOT of Medi cine (ADULT)] Future Scheduled ZOSTER VACCINE (1 of [employer] Test 2) [code = ZOSTER of Medicin e VACCINE (1 of 2)] Future Scheduled OSTEOPOROSIS [facility] Kristine [facility]ge Test SCREENING [code = of Medicin e OSTEOPOROSIS SCREENING] Future Scheduled MEDICARE AWV [facility] Kristine [facility] Test (Initial) [code = of Medicin e MEDICARE AWV (Initial)] Future Scheduled FLU VACCINE > 6 [facility] C [facility]lege Test MONTHS [code = FLU of Medici ne VACCINE > 6 MONTHS] Future Scheduled FALL SCREEN [code = [employer] [facility] FALL SCREEN] of Medicine Future Scheduled BMI FOLLOW UP PLAN [facility] Test [code = BMI FOLLOW of Medici ne UP PLAN] Future Scheduled ZOSTER VACCINE (1 of [employer] Test 2) [code = ZOSTER of Medicin e VACCINE (1 of 2)] Future Scheduled OSTEOPOROSIS [facility] [employer] Test SCREENING [code = of Medicin e OSTEOPOROSIS SCREENING] Future Scheduled MEDICARE IPPE [facility] Col [facility]ge Test (WELCOME TO of Medicine MEDICARE) [code = MEDICARE IPPE (WELCOME TO MEDICARE)] Future Scheduled FLU VACCINE > 6 Art C ollege Test MONTHS [code = FLU of Medici ne VACCINE > 6 MONTHS] Future Scheduled FALL SCREEN [code = [employer] Test FALL SCREEN] of Medicine Future Scheduled TETANUS SHOT (ADULT) [employer] Test [code = TETANUS SHOT of Medi cine (ADULT)] Future Scheduled COVID-19 Vaccine (1) [employer] Test [code = COVID-19 of Medicine Vaccine (1)] Future Scheduled BMI FOLLOW UP PLAN [employer] Test [code = BMI FOLLOW of Medici ne UP PLAN] Future Scheduled ZOSTER VACCINE (1 of [employer] Test 2) [code = ZOSTER of Medicin e VACCINE (1 of 2)] Future Scheduled Screening for [facility] Col [facility] Test osteoporosis of Medicine (procedure) [code = 689981470] Future Scheduled MEDICARE IPPE [facility] Col [facility] Test (WELCOME TO of Medicine MEDICARE) [code = MEDICARE IPPE (WELCOME TO MEDICARE)] Future Scheduled FLU VACCINE > 6 [facility] C ollege Test MONTHS [code = FLU of Medici ne VACCINE > 6 MONTHS] Future Scheduled FALL SCREEN [code = [employer] Test FALL SCREEN] of Medicine Future Scheduled TETANUS SHOT (ADULT) [employer] Test [code = TETANUS SHOT of Medi cine (ADULT)] Encounters Start End Encounter Admission Attending Care Care Encounter Source Date/Time Date/Time Type Type Clinicians Facility Department ID 2020-11-29 Outpatient [facility] [id number] [facility] 10:44:36 [id number] [facility] 2020-11-29 Outpatient [facility] [id number] [facility] 08:37:05 [id number] [facility] 2020-11-26 Outpatient [facility] [id number] [facility] 17:47:41 [id number] [facility] 2020-11-26 Outpatient [facility] [id number] [facility] 17:43:25 [id number] [facility] 2020-11-26 Outpatient [facility] [id number] [facility] 17:38:25 [id number] [facility] 2020-11-26 Outpatient [facility] [id number] [facility] 17:36:45 [id number] [facility] 2020-11-26 Outpatient [facility] [id number] [facility] 17:34:20 [id number] [facility] 2020-11-26 Outpatient [facility] [id number] [facility] 17:30:46 [id number] [facility] 2020-11-26 Outpatient [facility] [id number] Legacy 17:29:46 [id number] Replaced by [facility] 2020-11-17 Inpatient ER [facility] [id number] SLE 14:52:09 LILIANA 2021-09-17 2021-09-17 Outpatient Braulio MATT MICHAEL [facility] [id number] Univers 11:00:00 11:00:00 MICHAEL MATT ity of [facility] 2021-09-13 2021-09-13 Telephone [facility] [id number] Univers 00:00:00 00:00:00 [facility] [id number] ity of [place] 4.2.7.2.686 Kilo as BHARTI?BLEA [id number] [address] MEDICAL OFFICE [facility] 2021-09-13 2021-09-13 Orders Doctor LILLIANA [id number] [facility] 00:00:00 00:00:00 Only Unassigned, MACKENZIE 350.1.13.10 ity of [place] [facility] 4.2.7.2.686 Kilo as [phone] [address] 2021-09-10 2021-09-10 Office [facility] 1.2.840.114 [id number] Univers 16:00:00 17:05:49 Visit [facility] 350.1.13.10 ity of [place] 4.2.7.2.686 Kilo as BHARTI?BLEA [id number] [address] MEDICAL OFFICE [facility] 2021-05-03 2021-05-03 Office Link, [facility] 1.2.840.114 [id number] [facility] 10:00:00 11:16:44 Visit Adams Dias AMBULATOR 350.1.13.21 College Y 0.2.7.2.686 of [id number] [facility] raimundo 300 e 2021-05-03 2021-05-03 Outpatient [facility] [id number] [facility] 10:26:26 10:26:26 Colleg e of Medicin e 2021-05-03 2021-05-03 Outpatient [facility] [id number] [facility] 10:13:26 10:13:26 Colleg e of Medicin e 2020-12-23 2021-01-10 Office LINK, [facility] 1.2.840.114 [id number] [facility] 15:05:24 13:24:06 Visit ADAMS AMBULATOR 350.1.13.21 College Y 0.2.7.2.686 of [id number] Medi raimundo 300 e 2020-05-04 2020-05-04 Office LINK, [facility] 1.2.840.114 [id number] [facility] 10:43:07 12:09:48 Visit ADAMS AMBULATOR 350.1.13.21 College Y 0.2.7.2.686 of [id number] Medi raimundo 300 e 2020-04-29 2020-04-29 Telephone Beto [facility] [id number] 00:00:00 00:00:00 Daniel [place] 350.1.13.10 [place] 4.2.7.2.686 Professio [phone] [address] 2020-04-29 2020-04-29 Refill Beto [facility] 1.2.840.114 [id number] 00:00:00 00:00:00 Daniel [place] 350.1.13.10 [place] 4.2.7.2.686 Professio [phone] [address] 2020-04-25 2020-04-25 Urgent Provider [facility] [id number] 10:12:47 10:32:47 Care Ang [facility] 350.1.13.10 Care [place] 4.2.7.2.686 Professio [phone] [place] [address] Office [facility] 2020-04-15 2020-04-15 Telephone Sarahi NEDELIA 1.2.840.114 [id number] 00:00:00 00:00:00 Wondiful [facility] 350.1.13.10 [place] 4.2.7.2.686 Professio [id number] [place] [address] Office Building [facility] 2020-03-07 2020-03-07 Patient Tyler [facility] 1.2.840.114 [id number] 00:00:00 00:00:00 Outreach [facility] 350.1.13.[address] [facility] 4.2.7.2.686 [place] [id number] 388 2020-01-16 2020-01-16 Telemedici Sarahi [facility] 1.2.840.114 [id number] 16:09:25 16:24:25 ne Visit Jamilful [facility] 350.1.13.10 [place] 4.2.7.2.686 Professio [phone] nal 044 Office Building One 2020-01-12 2020-01-12 Orders Doctor LILLIANA 1.2.840.114 [id number] 00:00:00 00:00:00 Only Unassigned, MACKENZIE 350.1.13.10 [place] [facility] 4.2.7.2.686 [id number] 009 2020-01-06 2020-01-06 Office Link, [facility] 1.2.840.114 [id number] 10:46:16 11:44:31 Visit Adams E AMBULATOR 350.1.13.21 Y 0.2.7.2.686 [id number] 300 2020-01-06 2020-01-06 Office Link, [facility] 1.2.840.[id number] [place] [address] 10:46:16 11:44:31 Visit Adams E AMBULATOR 350.1.13.21 College Y 0.2.7.2.686 of [id number] [facility] 300 e 2019-12-16 2019-12-16 Case [place] [facility] 1.2.840.114 [id number] 00:00:00 00:00:00 Management W[facility] 350.1.13.10 [place] 4.2.7.2.686 [facility] [phone] nal 044 Office Building One 2019-12-12 2019-12-12 Schedule Announcer 1, Adc Lab [facility] 1.2.840.114 [id number] 09:36:54 09:51:54 Visit [place] 350.1.13.10 [place] 4.2.7.2.686 [place] [id number] 2019-12-12 2019-12-12 Telephone Sarahi [facility] 1.2.840.114 [id number] 00:00:00 00:00:00 Wondiful [facility] 350.1.13.10 [place] 4.2.7.2.686 Professio [phone] [place] [address] Office Building One 2019-12-05 2019-12-05 Orders Doctor LILLIANA 1.2.840.114 [id number] 00:00:00 00:00:00 Only Unassigned, MACKENZIE 350.1.13.10 [facility] 4.2.7.2.686 [id number] 009 2019-11-14 2019-11-14 Case Sarahi [facility] 1.2.840.114 [id number] 00:00:00 00:00:00 Management [facility] 350.1.13.10 [place] 4.2.7.2.686 Professio [phone] [place] [address] Office Building One 2019-11-13 2019-11-13 Beto Mcclain [facility] 1.2.840.114 [id number] 00:00:00 00:00:00 Management [facility] 350.1.13.10 [place] 4.2.7.2.686 Professio [phone] [place] [address] Office Building One 2019-11-08 2019-11-08 Office Sarahi [facility] 1.2.840.114 [id number] 09:44:58 11:00:23 Visit Wondiful [facility] 350.1.13.10 [place] 4.2.7.2.686 Professio [phone] [place] [address] Office Building One 2019-10-07 2019-10-07 Office Link, [facility] 1.2.840.114 [id number] 08:45:50 10:08:26 Visit Adams Dias AMBULATOR 350.1.13.21 Y 0.2.7.2.686 [id number] 300 2019-10-07 2019-10-07 Office Link, [place] 1.2.840.[id number] [place] [address] 08:45:50 10:08:26 Visit Adams Dias AMBULATOR 350.1.13.21 College Y 0.2.7.2.686 of [id number] [facility] 300 e 2019-08-29 2019-08-29 Urgent Lab, [facility] 1.2.840.114 [id number] 11:00:00 11:20:00 Care Fam Pob I Health 350.1.13.10 [place] 4.2.7.2.686 [facility] [phone] nal 044 Office Building One 2019-07-30 2019-07-30 Office ADRIAN Thacker LC Encounter / [facility] 00:00:00 00:00:00 Visit Renata [id number] Com natalee [id number] [facility] 2019-07-01 2019-07-01 Office Wilfredo, NICOLASA LC Encounter/ [facility] 00:00:00 00:00:00 Visit Mirella [id number] Com natalee De [place] [id number] [facility] 2019-07-01 2019-07-01 [facility] 00:00:00 00:00:00 Visit Mirella [id number] Com natalee De La Cruz [id number] [facility] 2019-07-01 2019-07-01 Office WilfredoMirella willingham [facility] Encounter/ Legacy 00:00:00 00:00:00 Visit Shy Miller [id number] [address] [place] [address] [id number] [facility] 2019-06-25 2019-06-25 Office [facility] 00:00:00 00:00:00 Visit Mirella [id number] Com natalee Jono [id number] [facility] 2019-06-25 2019-06-25 Office Wilfredo, [facility] Encounter/ Legacy 00:00:00 00:00:00 Visit Mirella [id number] Com natalee Jono [id number] [facility] 2019-06-25 2019-06-25 Office [facility] En[facility]/ [facility] 00:00:00 00:00:00 Visit Mirella [id number] Com natalee Jono 624743 [facility] 2019-06-25 2019-06-25 Office WilfredoMirella [facility] Encounter/ Legacy 00:00:00 00:00:00 Visit Renata Thacker [id number] [facility] [id number] [facility] Results Test Description Test Time Test Comments Results Result Comments Source POCT URINALYSIS DIPSTICK 2020-12-23 00:00:00 Test Item Value Reference Range Interpretation Comme nts COLOR UA (test code = 5778-6) Yellow YELLOW/STRAW CLARITY UA (test code = 55616-4) Clear CLEAR GLUCOSE UA (test code = 5792-7) Negative NEGATIVE BILIRUBIN UA (test code = 5770-3) Negative NEGATIVE KETONES UA (test code = 57597-5) Negative NEGATIVE SPECIFIC GRAVITY UA (test code [...] NEGATIVE REDUCING SUBSTANCES URINE (test code = 22993-1) NEGATI VE Lab Interpretation (test code = 26975-2) Abnormal [facility] [id number] 00:00:00 Test Item Value Reference Range Interpretation Comments COLOR UA (test code = 5778-6) Light Yellow YELLOW/STRAW CLARITY UA (test code = Cloudy CLEAR 92136-6) GLUCOSE UA (test code = Negative NEGATIVE 5792-7) BILIRUBIN UA (test code = Negative NEGATIVE 5770-3) KETONES UA (test code = Negative NEGATIVE 71220-3) SPECIFIC GRAVITY UA (test 1.005-1.035 code = [...] 5802-4) REDUCING SUBSTANCES URINE (test code = 49083-3) [facility] [id number] 11:28:02 Test Item Value Reference Range Interpretation Comments MAGNESIUM (test code = See_Comment Unle ss Otherwise 74007-0) Indicated, All Testing Performed At: C linical Pathology Formerly [facility], [address] [place] [address], [place] [address] Laborator y Director: Konstantin Ball Number [id number] [employer] N o. 73856-51 [Autom ated message] The sy stem which generated this result transmitted ref erence range: 1.6 - 2. 6 MG/DL. The reference r nanci was not used to int erpret this result as normal/abnormal . [facility] METABOLIC [id number] 08:53:12 Test Item Value Reference Range Interpretation Comments GLUCOSE (test code = See_Comment H [Autom ated message] 2345-7) The system [employer] generated this result transmitted ref erence range: [...] L [Au tomated message] 2160-0) The system [employer] generated this result transmitted ref erence range: 0.60 - 1 .30 MG/DL. The refe rence range was not u sed to interpret this result as normal/abnor mal. EGFR AA (test code = See_Comment [Autom ated message] 90301-0) The system [employer] generated this result transmitted ref erence range: >60 ML/MIN/1.73. Th e reference range was not used to int erpret this result as normal/abnormal . EGFR (test code = See_Comment [Automate d message] 52375-1) The system [employer] generated this result transmitted ref erence range: >60 ML/MIN/1.73. Th e reference range was not used to int erpret this result as normal/abnormal . SODIUM (test code = See_Comment [Automa kendrick message] 2951-2) The system [employer] generated this result transmitted ref erence range: 133 - 14 6 MEQ/L. The refe rence range was not u sed to interpret this result as normal/abnor mal. POTASSIUM (test code = See_Comment [Aut omated message] 5433-3) The system whic h generated this result transmitted ref erence range: 3.5 - 5. 4 MEQ/L. The refe rence range was not u sed to interpret this result as normal/abnor mal. CHLORIDE (test code = See_Comment [Auto mated message] ) The system [employer] h generated this result transmitted ref erence range: 95 - 107 MEQ/L. The refe rence range was not u sed to interpret this result as normal/abnor mal. CO2 (test code = 1963-8) See_Comment [A utomated message] The system [employer] h generated this result transmitted ref erence range: 19 - 31 MEQ/L. The reference r nanci was not used to interpret this result as normal/abnor mal. CALCIUM (test code = See_Comment Unless Otherwise 66853-0) Indicated, All Testing Perform ed At: [facility], [address] [place] [address] Laborato ry Director: Tani Vazquez M.D. CLIA Number [id number] [employer] N o. 72223-06 [Autom ated message] The sy stem which generated this result transmit kendrick reference range : 8.5 - 10.5 MG/DL. T he reference range was not used to int erpret this result as normal/abnormal . Lab Interpretation (test Abnormal code = 62069-2) [facility] [id number] 08:53:12 Test Item Value Reference Range Interpretation Comments URIC ACID (test code See_Comment Unless Otherwise = 1480198) Indicated, All Testing Performed At: [facility] [address] [place] [address] Laborator y Director: Tani rogers M.D. CLIA Number [id number] [employer] N o. 91604-94 [Automated mess age] The system which ge nerated this result transmit kendrick reference range : 2.7 - 6.1 MG/DL. The refe rence range was not used to interpret this result as normal/abnormal . [facility] Stanford[facility], FLUORO, NON-SPECIFIC, UP TO 1 [id number] 09:44:00Reason for exam:->cystoFINAL REPORT A fluoroscopic unit was utilized for a procedure performed in the operating room. No interpretation was requested. Please refer to the operative report regarding findings. Please refer to PACS for patient radiation dose information. Signed: JR Elizabeth, Alla Mast Verified Date/Time: 07/14/2019 09:44:15 Reading Location[facility] B1 C013V Neuro Reading Room BLOOD [id number] 11:00:00 Test Item Value Reference Range Interpretation Comments CULTURE (BEAKER) (test No growth in 5 days code = 1095) BLOOD [id number] 11:00:00 Test Item Value Reference Range Interpretation Comments CULTURE (BEAKER) (test No growth in 5 days code = 1095) URINE [id number] 11:07:00 Test Item Value Reference Range Interpretation Comments CULTURE (BEAKER) (test code = 1095) No growth ANG, NEPHROSTOMY, PERC, EXTERNAL [id number] 11:00:00Reason for exam:- >request left PCN for left obstructing stone, feversFINAL REPORT Procedure: Percutaneous nephrostomy catheter placement. History: Left ureteric calculus with obstruction, infection. Solar Sales Manager: Bradford Matthew M.D. Extension Supervisor: Nargis mckeon M.D. Modality: Ultrasound and fluoroscopy. DOSE REDUCTION: The examination was performed according to departmental dose- optimization program. Fluoro time: 1.1 minutes Radiation dose: 18.9 mGy air Kerma. Number of images: 8 Sedation: Versed 1 mg and fentanyl 50 mcg was given intravenously for conscious sedation. Vital signs were monitored throughout the procedure by a dedicated RN under direct supervision of Dr. Matthew, and remained stable. [...] used personal protective equipment. The operators used sterilegowns and gloves. The patient was laid prone [...] collecting system under fluoroscopic guidance. Contrast injection confirmedsatisfactory position of the access system. Over the wire, following sequential dilatation of the tract, an 8.5 Yemeni nephrostomy catheter was placed, pigtail locked in [...] on into the bladder. Impression:Successful ultrasound and fluoroscopicguided 8.5 Yemeni nephrostomy catheter placement left kidney via a posterior inferior calyx as described above. Further management dictated by the clinical scenario. The nephrostomy catheter(s) should be exchanged at the latest in three months. Thank you for the opportunity to assist in the care of your patient. Signed: Bradford Matthew MDReport Verified Date/Time: 07/10/2019 11:00:12 Reading Location:[address] Body Reading Room 11:00 AMBASIC METABOLIC [id number] 07:33:00 Test Item Value Reference Range Interpretation [...] 1092) DATA TO CALCULA TE ESTIMATED GFR. Interior Horticulturist ID - MONIE [id number] 07:25:00 Test Item Value Reference Range Interpretation Comments MAGNESIUM (BEAKER) (test code = 2.2 mg/dL 1.6-2.6 627) Interior Horticulturist ID - MONIE CHEPATIC FUNCTION [id number] 07:25:00 Test Item Value Reference Range Interpretation [...] (test code = 43 U/L 6-55 347) Interior Horticulturist ID - MONIE CCBC W/PLT COUNT & AUTO [id number] 06:54:00 Test Item Value Reference Range Interpretation [...] (BEAKER) (test code = 2801) BASIC METABOLIC [id number] 05:38:00 Test Item Value Reference Range Interpretation [...] 1092) DATA TO CALCULA TE ESTIMATED GFR. Interior Horticulturist ID - [id number] 05:24:00 Test Item Value Reference Range Interpretation Comments MAGNESIUM (BEAKER) (test code = 1.8 mg/dL 1.6-2.6 627) Interior Horticulturist ID - LAHEPATIC FUNCTION [id number] 05:24:00 Test Item Value Reference Range Interpretation [...] (test code = 36 U/L 6-55 347) Interior Horticulturist ID - LACBC W/PLT COUNT & AUTO [id number] 04:34:00 Test Item Value Reference Range Interpretation [...] (BEAKER) (test code = 2801) LACTIC ACID, [id number] 20:25:00 Test Item Value Reference Range Interpretation Comments LACTATE BLOOD VENOUS (2) (BEAKER) 0.69 mmol/L 0.50-2.20 (test code = 2872) Interior Horticulturist ID - NTPRAD, CHEST, 1 VIEW, NON [id number] 16:24:00Reason for exam:->feverShould this be performed at the bedside?->YesFINAL REPORT CLINICAL HISTORY: fever TECHNIQUE: 1 view of the chest. COMPARISON: None IMPRESSION: There is possible retrocardiac left lower lobe consolidation, for which clinical correlation for pneumonia is requested. There is blunting of the left costophrenic angle. The heart isnot enlarged. Signed: Rich Valentine MDReport Verified Date/Time: 07/08/2019 16:24:52 Reading Location: [address] Neuro Reading Room HEMOGLOBIN [id number] 13:56:00 Test Item Value Reference Range Interpretation Comments HEMOGLOBIN A1C (BEAKER) (test code = 6.1 % 4.3-6.1 368) URINALYSIS W/ REFLEX URINE [id number] 13:15:00 Test Item Value Reference Range Interpretation [...] = 516) SOURCE(BEAKER) (test code = 2795) Interior Horticulturist ID - [auto]Interior Horticulturist ID - techRESPIRATORY PANEL [id number] 12:14:00 Test Item Value Reference Range Interpretation [...] decisions. This sample was tested at the [facility] using the Cloudmeter Respiratory Panel. It is FDA cleared and has been verified and approved by the [facility] for clinical use on nasopharyngeal swab specimens.The performance of the FilmArrayRP has not been established in individuals who received influenza vaccine. Recent administration of a nasal influenza vaccine may cause false positive results for Influenza A and/orInfluenza B.SARS-COV2/RT-PCR ([facility])2019-07-08 11:26:00 Test Item Value Reference Range Interpretation Comments SARS-COV2/RT-PCR (test Not Detected Not Detected, Negative code = 7608563) SARS-COV-2 PERFORMING LAB [facility] (test code = 1228347) Negative results do not preclude SARS-CoV-2 infection [...] of the Act.Fact Sheet for Healthcare Pro viders:https://www.[employer])/Documents/Xpert%20Xpress%20SARS%20CoV-2/Fact%20Sh eets/077-7832%60FPHX-TDH-9%20HEALTHCARE%20PROVIDERS%20FACT%20SHEET.pdfFact Sheet for Healthcare Patients:https://www.[employer])/Documents/Xpert%20Xpress%20SARS%20CoV-2/Fact%20Sheets/302-4832%20SARS-COV -2%20PATIENT%20FACT%20SHEET.pdfPerforming Laboratory:[place] [address] [address], [place] [address]XQGWB METABOLIC [id number] 10:06:00 Test Item Value Reference Range Interpretation [...] 1092) DATA TO CALCULA TE ESTIMATED GFR. Interior Horticulturist ID - [id number] 10:05:00 Test Item Value Reference Range Interpretation Comments MAGNESIUM (BEAKER) (test code = 2.0 mg/dL 1.6-2.6 627) Interior Horticulturist ID - NTPHEPATIC FUNCTION [id number] 10:05:00 Test Item Value Reference Range Interpretation [...] (test code = 30 U/L 6-55 347) Interior Horticulturist ID - [id number] 09:53:00 Test Item Value Reference Range Interpretation [...] 2.5-3.5 for patients wiht mechanical heart valves.PROTHROMBIN TIME/[id number] 09:51:00 Test Item Value Reference Range Interpretation [...] for patients wiht mechanical heart valves.LACTIC ACID, [id number] 09:50:00 Test Item Value Reference Range Interpretation Comments LACTATE BLOOD VENOUS (2) (BEAKER) 2.87 mmol/L 0.50-2.20 H (test code = 2872) Interior Horticulturist ID - NTPCBC W/PLT COUNT & AUTO [id number] 09:41:00 Test Item Value Reference Range Interpretation [...] % 0-1 PERCENT (BEAKER) (test code = 7894)
[2021-10-10 21:44] LABS: Absolute Lymphocytes (CBC) 1.3 K/uL (0.7-4.9); Hematocrit 31.9 % (36.0-45.0); Lymphocytes % 15.4 % (15.3-44.8); MPV 8.4 fL (7.6-11.3); RBC Red Blood Cell Count 3.85 M/uL (3.86-4.86)
[2021-10-10 22:02] LABS: Potassium 3.8 mmol/L (3.5-5.1); Troponin High Sensitivity 20.8 pg/mL (<58.9)
--- NOTE | 2021-10-10 22:19 | RAD REPORT ---
EXAM DESCRIPTION: CT - Head Brain Wo Cont - 10/10/2021 10:08 pm CLINICAL HISTORY: Head trauma, minor COMPARISON: Head Brain Wo Cont dated 12/26/2017; Head C Spine Mpr Wo Con dated 08/13/2021; Brain W/Wo Cont dated 12/30/2019 TECHNIQUE: All CT scans are performed using dose optimization technique as appropriate and may inclu de automated exposure control or mA/KV adjustment according to patient size. FINDINGS: No intracranial hemorrhage, hydrocephalus or extra-axial fluid collection.No areas of brai n edema or evidence of midline shift. Are frontal lobe encephalomalacia. The paranasal sinuses and mastoids are clear. The calvarium is intact. IMPRESSION: No acute intracranial abnormality.
--- NOTE | 2021-10-10 22:20 | RAD REPORT ---
EXAM DESCRIPTION: RAD - Chest Single View - 10/10/2021 10:15 pm CLINICAL HISTORY: CONGESTION COMPARISON: Chest Single View dated 08/13/2021; Chest Single View dated 05/05/2021; Chest Single View d ated 03/14/2021; Chest Single View dated 02/23/2021 FINDINGS: Lines: None. Lungs: No evidence of edema or pneumonia. Pleural: No significant pleural effusions or pneumothorax. Cardiac: The heart size is within normal limits. Bones: No acute fractures. Other: IMPRESSION: No acute cardiopulmonary disease.
[2021-10-10] MEDS ORDERED: NA CHLORIDE 0.9% 500 ML ONE (22:30)
[2021-10-10] MEDS ORDERED: LOSARTAN POTASSIUM 50 MG TABLET ONE (22:42)
--- NOTE | 2021-10-10 22:51 | ER ---
Nurse's Notes [facility] Name: Erika Jacobson Age: 86 yrs Sex: Female : 1935 Arrival Date: 10/10/2021 Time: 19:50 Bed 19 Private MD: Diagnosis: SARS-associated coronavirus as the cause of diseases classified elsewhere;Cough;Fever, unspecified;Other malaise and fatigue;Hypertensive heart disease without heart failure-Poorly controlled Presentation: 10/10 19:55 Chief complaint: Patient states: cough, fever, headache, dizziness starting 3 days ago. lg3 generalized body aches. Coronavirus screen: Client denies travel out of the [place] in the last 14 days. Client presents with at least one sign or symptom that may indicate coronavirus-19. Standard/surgical mask placed on the client. Ebola Screen: No symptoms or risks identified at this time. Initial Sepsis Screen: Does the patient meet any 2 criteria? No. Patient's initial sepsis screen is negative. Does the patient have a suspected source of infection? No. Patient's initial sepsis screen is negative. Risk Assessment: Do you want to hurt yourself or someone else? Patient reports no desire to harm self or others. Onset of symptoms was October 07, 2021. 19:55 Method Of Arrival: Ambulatory lg3 19:55 Acuity: ISHAN 3 lg3 Triage Assessment: 20:00 Headache History: Denies prior headaches. General: Appears in no apparent distress. lg3 uncomfortable, Behavior is calm, cooperative. Pain: Complains of pain in throat Pain currently is 7 out of 10 on a pain scale. Pain began 2-3 days ago. Also complains of decreased appetite, inability to perform activities of daily living, sleeplessness. EENT: No deficits noted. No signs and/or symptoms were reported regarding the EENT system. Neuro: No deficits noted. Level of Consciousness is awake, alert, obeys commands, Oriented to person, place, time, situation. Cardiovascular: No deficits noted. Denies chest pain, shortness of breath, Capillary refill < 3 seconds Clubbing of nail beds is absent JVD is absent Patient's skin is warm and dry. Respiratory: Reports cough that is Airway is patent Trachea midline Respiratory effort is even, unlabored, Respiratory pattern is regular, symmetrical. GI: No deficits noted. No signs and/or symptoms were reported involving the gastrointestinal system. Abdomen is round non-distended. : No deficits noted. No signs and/or symptoms were reported regarding the genitourinary system. Derm: No deficits noted. No signs and/or symptoms reported regarding the dermatologic system. Skin is intact, is healthy with good turgor, Skin is dry, Skin temperature is warm. Musculoskeletal: Parent/caregiver report the patient having generalized weakness. Historical: - Allergies: 20:00 No Known Allergies; lg3 - Home Meds: 20:00 aspirin 81 mg Oral chew 1 tab once daily [Active]; atorvastatin 40 mg Oral tab 1 tab lg3 once daily [Active]; losartan 100 mg Oral tab 1 tab once daily [Active]; Lasix Oral [Active]; carvedilol oral [Active]; - PMHx: 20:00 Asthma; CVA; Hyperlipidemia; Hypertension; lg3 - PSHx: 20:00 choleycestectomy; kidney stones; lg3 - Immunization history:: Adult Immunizations up to date, moderna X3. - Social history:: Smoking status: Patient denies any tobacco usage or history of. Patient/guardian denies using alcohol, street drugs. Screenin:11 Abuse screen: Denies threats or abuse. Nutritional screening: No deficits noted. ll3 Tuberculosis screening: No symptoms or risk factors identified. Fall Risk No fall in past 12 months (0 pts). No secondary diagnosis (0 pts). IV access (20 points). Ambulatory Aid- None/Bed Rest/Nurse Assist (0 pts). Gait- Weak (10 pts.). Mental Status- Oriented to own ability (0 pts). Total Gonzales Fall Scale indicates Low Risk Score (25-44 pts). Fall prevention measures have been instituted. Side Rails Up X 2 Placed close to Nursing Station Family Present and informed to notify staff if they need to leave bedside As available Patient and Family Educated on Fall Prevention Program and strategies. Assessment: 20:00 General: Appears ill, Behavior is calm, cooperative. General: Reports fever for. Pain: ll3 Complains of pain in H/A. Neuro: Level of Consciousness is awake, alert, obeys commands, Oriented to person, place, time, situation, Reports dizziness, headache. Cardiovascular: Patient's skin is warm and dry. Respiratory: Reports shortness of breath cough that is Respiratory effort is even, unlabored, Respiratory pattern is regular, symmetrical. Derm: Skin temperature is warm. 22:01 Reassessment: No changes from previously documented assessment. Patient is alert, ll3 oriented x 3, equal unlabored respirations, skin warm/dry/pink. 23:47 Reassessment: No changes from previously documented assessment. Patient and/or family ll3 updated on plan of care and expected duration. Pain level reassessed. Patient is alert, oriented x 3, equal unlabored respirations, skin warm/dry/pink. Vital Signs: 19:55 BP 142 / 74; Pulse 89; Resp 19 S; Temp 99.8(O); Pulse Ox 97% on R/A; Weight 58.97 kg lg3 (R); Height 5 ft. 3 in. (160.02 cm) (R); Pain 0/10; 21:00 BP 148 / 56; Pulse 77; Resp 18; Pulse Ox 94% on R/A; ll3 21:45 BP 153 / 58; Pulse 76; Resp 18; Pulse Ox 94% on R/A; ll3 23:47 BP 162 / 53; Pulse 75; Resp 17; Pulse Ox 96% on R/A; ll3 19:55 Body Mass Index 23.03 (58.97 kg, 160.02 cm) lg3 ED Course: 19:50 Patient arrived in ED. ja2 19:55 Francesco Figueroa MD is Attending Physician. kdr 20:00 Triage completed. lg3 20:00 Arm band placed on right wrist. lg3 22:09 Head Brain Wo Cont In Process Unspecified. EDMS 22:17 Chest Single View In Process Unspecified. EDMS 23:11 Patient has correct armband on for positive identification. Bed in low position. Call ll3 light in reach. Side rails up X 1. Client placed on continuous cardiac and pulse oximetry monitoring. NIBP monitoring applied. 23:11 No provider procedures requiring assistance completed. ll3 23:46 IV discontinued, intact, bleeding controlled, No redness/swelling at site. Pressure ll3 dressing applied. Administered Medications: 22:27 Drug: NS 0.9% 500 ml Route: IV; Rate: bolus; Site: right antecubital; ll3 23:48 Follow up: Response: No adverse reaction; IV Status: Completed infusion; IV Intake: ll3 500ml 22:38 Not Given (Duplicate Order): Losartan-Hydrochlorothiazide 50 mg-12.5 mg 1 tablet PO oncell3 22:40 Drug: Losartan 50 mg Route: PO; ll3 23:48 Follow up: Response: No adverse reaction ll3 22:59 Drug: hydrALAZINE 5 mg Route: IVP; Site: right antecubital; ll3 23:47 Follow up: Response: No adverse reaction ll3 Medication: 23:11 VIS not applicable for this client. ll3 Intake: 23:48 IV: 500ml; Total: 500ml. ll3 Outcome: 22:50 Discharge ordered by . kdr 23:46 Discharged to home ambulatory, with family. ll3 23:46 Condition: stable 23:46 Discharge instructions given to patient, family, Instructed on discharge instructions, follow up and referral plans. medication usage, Demonstrated understanding of instructions, follow-up care, medications, Prescriptions given X 2. 23:54 Patient left the ED. ll3 Signatures: Dispatcher [employer] EDMS Francesco Figueroa MD MD kdr Gibson, Lacie RN RN lg3 Araseli Ugalde Lynsea, RN RN ll3 Corrections: (The following items were deleted from the chart) 21:39 21:36 General: Appears ill, Behavior is calm, cooperative, ll3 ll3 21:39 21:36 Pain: Complains of pain in H/A ll3 ll3 21:39 21:36 Neuro: Level of Consciousness is awake, alert, obeys commands, Oriented to ll3 person, place, time, situation, Reports dizziness, headache ll3 21:39 21:36 Respiratory: Reports shortness of breath cough that is Respiratory effort is ll3 even, unlabored, Respiratory pattern is regular, symmetrical, ll3 21:39 21:36 General: Reports fever for ll3 ll3 21:39 21:36 Cardiovascular: Patient's skin is warm and dry. ll3 ll3 21:39 21:36 Derm: Skin temperature is warm ll3 ll3
--- NOTE | 2021-10-10 22:51 | EDPHYS ---
Physician Documentation [facility] Name: Erika Jacobson Age: 86 yrs Sex: Female : 1935 Arrival Date: 10/10/2021 Time: 19:50 Bed 19 Private MD: ED Physician Francesco Figueroa HPI: 10/10 22:46 This 86 yrs old Female presents to ER via Ambulatory with complaints of kdr Headache, Fever, Dizziness. 22:46 Ago patient was brought to the ED by her family today for cough, fever, headache, kdr dizziness that started about 3 days ago. She just has generalized body aches.. Onset: The symptoms/episode began/occurred gradually, 3 day(s) ago. Severity of symptoms: At their worst the symptoms were mild moderate just prior to arrival, in the emergency department the symptoms are unchanged. The patient has not experienced similar symptoms in the past. The patient has not recently seen a physician. Historical: - Allergies: 20:00 No Known Allergies; lg3 - Home Meds: 20:00 aspirin 81 mg Oral chew 1 tab once daily [Active]; atorvastatin 40 mg Oral tab 1 tab lg3 once daily [Active]; losartan 100 mg Oral tab 1 tab once daily [Active]; Lasix Oral [Active]; carvedilol oral [Active]; - PMHx: 20:00 Asthma; CVA; Hyperlipidemia; Hypertension; lg3 - PSHx: 20:00 choleycestectomy; kidney stones; lg3 - Immunization history:: Adult Immunizations up to date, moderna X3. - Social history:: Smoking status: Patient denies any tobacco usage or history of. Patient/guardian denies using alcohol, street drugs. ROS: 22:46 Constitutional: Negative for weight loss, Eyes: Negative for injury, pain, redness, and kdr discharge, ENT: Negative for injury, pain, and discharge, Neck: Negative for injury, pain, and swelling, Abdomen/GI: Negative for abdominal pain, nausea, vomiting, diarrhea, and constipation, Back: Negative for injury and pain, : Negative for injury, bleeding, discharge, and swelling, MS/Extremity: Negative for injury and deformity, Skin: Negative for injury, rash, and discoloration, Neuro: Negative for headache, weakness, numbness, tingling, and seizure activity. 22:46 Cardiovascular: Negative for chest pain, palpitations, and edema. 22:46 Constitutional: Positive for body aches, chills, fatigue, fever, malaise, poor PO intake. 22:46 Cardiovascular: 22:46 Respiratory: Positive for cough, with no reported sputum, Negative for dyspnea on exertion, hemoptysis, orthopnea, pleurisy, shortness of breath, sputum production, wheezing. Exam: 22:46 Constitutional: This is a well developed, well nourished patient who is awake, alert, kdr and in no acute distress. Head/Face: Normocephalic, atraumatic. Eyes: Pupils equal round and reactive to light, extra-ocular motions intact. Lids and lashes normal. Conjunctiva and sclera are non-icteric and not injected. Cornea within normal limits. Periorbital areas with no swelling, redness, or edema. Neck: Trachea midline, no thyromegaly or masses palpated, and no cervical lymphadenopathy. Supple, full range of motion without nuchal rigidity, or vertebral point tenderness. No Meningismus. Chest/axilla: Normal chest wall appearance and motion. Nontender with no deformity. No lesions are appreciated. Cardiovascular: Regular rate and rhythm with a normal S1 and S2. No gallops, murmurs, or rubs. Normal PMI, no JVD. No pulse deficits. Respiratory: Lungs have equal breath sounds bilaterally, clear to auscultation and percussion. No rales, rhonchi or wheezes noted. No increased work of breathing, no retractions or nasal flaring. Abdomen/GI: Soft, non-tender, with normal bowel sounds. No distension or tympany. No guarding or rebound. No evidence of tenderness throughout. Back: No spinal tenderness. No costovertebral tenderness. Full range of motion. Skin: Warm, dry with normal turgor. Normal color with no rashes, no lesions, and no evidence of cellulitis. MS/ Extremity: Pulses equal, no cyanosis. Neurovascular intact. Full, normal range of motion. Neuro: Awake and alert, GCS 15, oriented to person, place, time, and situation. Cranial nerves II-XII grossly intact. Motor strength 5/5 in all extremities. Sensory grossly intact. Cerebellar exam normal. Normal gait. Psych: Awake, alert, with orientation to person, place and time. Behavior, mood, and affect are within normal limits. Vital Signs: 19:55 BP 142 / 74; Pulse 89; Resp 19 S; Temp 99.8(O); Pulse Ox 97% on R/A; Weight 58.97 kg lg3 (R); Height 5 ft. 3 in. (160.02 cm) (R); Pain 0/10; 21:00 BP 148 / 56; Pulse 77; Resp 18; Pulse Ox 94% on R/A; ll3 21:45 BP 153 / 58; Pulse 76; Resp 18; Pulse Ox 94% on R/A; ll3 23:47 BP 162 / 53; Pulse 75; Resp 17; Pulse Ox 96% on R/A; ll3 19:55 Body Mass Index 23.03 (58.97 kg, 160.02 cm) lg3 MDM: 22:46 Data reviewed: vital signs, nurses notes, lab test result(s), radiologic studies. kdr Counseling: I had a detailed discussion with the patient and/or guardian regarding: the historical points, exam findings, and any diagnostic results supporting the discharge/admit diagnosis, lab results, radiology results, the need for outpatient follow up. 22:50 Patient medically screened. kdr 10/10 21:14 Order name: Basic Metabolic Panel; Complete Time: 22:45 10/10 21:14 Order name: CBC with Diff; Complete Time: 22:45 10/10 21:14 Order name: Troponin HS; Complete Time: 22:45 10/10 21:14 Order name: Flu; Complete Time: 22:45 10/10 21:14 Order name: COVID-19 SARS RT PCR (Document "Date of Onset" if Symptomatic); Complete bb Time: 22:45 10/10 21:29 Order name: Strep; Complete Time: 22:45 kdr 10/10 21:34 Order name: Head Brain Wo Cont; Complete Time: 22:45 EDMS 10/10 21:52 Order name: Chest Single View; Complete Time: 22:45 EDSD 10/10 22:11 Order name: Throat Culture EDSD 10/10 21:14 Order name: EKG; Complete Time: 21:15 bb 10/10 21:14 Order name: Cardiac monitoring; Complete Time: 22:02 10/10 21:14 Order name: EKG - Nurse/Tech; Complete Time: 22:02 bb 10/10 21:14 Order name: IV Saline Lock; Complete Time: 21:32 10/10 21:14 Order name: Labs collected and sent; Complete Time: :32 10/10 21:14 Order name: O2 Per Protocol; Complete Time: 21:32 10/10 21:14 Order name: O2 Sat Monitoring; Complete Time: 21:32 bb Administered Medications: 22:27 Drug: NS 0.9% 500 ml Route: IV; Rate: bolus; Site: right antecubital; ll3 23:48 Follow up: Response: No adverse reaction; IV Status: Completed infusion; IV Intake: ll3 500ml 22:38 Not Given (Duplicate Order): Losartan-Hydrochlorothiazide 50 mg-12.5 mg 1 tablet PO oncell3 22:40 Drug: Losartan 50 mg Route: PO; ll3 23:48 Follow up: Response: No adverse reaction ll3 22:59 Drug: hydrALAZINE 5 mg Route: IVP; Site: right antecubital; ll3 23:47 Follow up: Response: No adverse reaction ll3 Disposition Summary: 10/10/21 22:50 Discharge Ordered Location: Home kdr Problem: new kdr Symptoms: have improved kdr Condition: Stable kdr Diagnosis - SARS-associated coronavirus as the cause of diseases classified elsewhere kdr - Cough kdr - Fever, unspecified kdr - Other malaise and fatigue kdr - Hypertensive heart disease without heart failure - Poorly controlled kdr Followup: kdr - With: Private Physician - When: 2 - 3 days - Reason: If symptoms return, Further diagnostic work-up, Recheck today's complaints, Continuance of care, Re-evaluation by your physician Discharge Instructions: - Discharge Summary Sheet kdr - Fever, Adult kdr - Hypertension, Adult, [id number] kdr - COVID-19 kdr - Things to Know about the COVID-19 Pandemic - [facility] kdr - 10 Things You Can Do to Manage Your COVID-19 Symptoms at Home - [facility] kdr - Viral Illness, Adult kdr - COVID-19: Quarantine vs. Isolation - [facility] kdr - Prevent the Spread of COVID-19 if You Are Sick - [facility] kdr Forms: - Medication Reconciliation Form kdr - Thank You Letter kdr - Antibiotic Education kdr Prescriptions: - Ibuprofen 600 mg Oral Tablet - take 1 tablet by ORAL route every 6 hours As needed take with food; 30 tablet; kdr Refills: 0, Product Selection Permitted - Tessalon Perles 100 mg Oral Capsule - take 1 capsule by ORAL route every 8 hours As needed; 15 capsule; Refills: 0, kdr Product Selection Permitted Signatures: Dispatcher [employer] Francesco Lloyd MD MD kdr Ruby Cardoza, RN RN bb Vani Jerry RN RN lg3 Melissa Nation RN RN ll3 Corrections: (The following items were deleted from the chart) 21:51 21:15 Chest Single View+RAD.RAD.BRZ ordered. EDSD EDMS
[2021-10-10] MEDS ORDERED: HYDRALAZINE HCL 20 MG/ML VIAL ONE (23:06)
[2021-10-11 01:38] VITALS: TEMP 99.8
[2021-10-11 01:48] VITALS: BP 162/53; O2SAT 96
--- NOTE | 2021-10-11 10:21 | EKG ---
Test Date: 2021-10-10 Test Time: 21:48:20 Craft Superintendent: HEENA MEASUREMENT RESULTS: Intervals: Rate: 75 IN: 150 QRSD: 138 QT: 444 QTc: 495 Terral: P: 68 IN: 150 QRS: -48 T: 92 INTERPRETIVE STATEMENTS: Normal sinus rhythm Left axis deviation Left bundle branch block Abnormal ECG Compared to ECG 10/01/2021 12:17:41 Ventricular premature complex(es) no longer present Electronically Signed On 10-11-21 10:19:58 CDT by Marcel Dean
== END 2021-10-10 23:54 | disposition home or self-care (01) ==
LOC: ER 19:48
DX: U07.1 COVID-19 (principal); R05.9 Cough, unspecified; R53.81 Other malaise; R53.83 Other fatigue; I11.9 Hypertensive heart disease without heart failure; I10 Essential (primary) hypertension; Z86.73 Personal history of transient ischemic attack (TIA), and cerebral infarction without residual deficits; Z79.82 Long term (current) use of aspirin
CPT/HCPCS: 96361; 93005; 87070; 85025; 80048; 36415; 87081; 84484; 87804 ×2; 70450; 71045; 96374; 99283; U0003; J0360; J7040

== ENCOUNTER 2021-10-19 13:00 | Emergency (ER) | payer OTHER ==
--- OUTSIDE RECORDS SUMMARY | 2021-10-19 13:06 | XMS REPORT | Continuity of Care Document ---
:1935 Author Organization [facility] t Address [address] [place] [address] Care Team Providers Name Role Phone Carmelita MURGUIA, Wu Primary Care Physician LILIANA LI Attending Clinician Unavailable MICHAEL MATT Attending Clinician Unavailable MICHAEL MATT Attending Clinician Unavailable Angela Rodas MD Attending Clinician Doctor Unassigned, [place] Attending Clinician Unavailable Adams Germain MD Attending Clinician ADAMS GERMAIN Attending Clinician Unavailable Beto MURGUIA, Daniel Attending Clinician Provider, [facility] Attending Clinician Unavailable Sarahi MURGUIA, Johan Goyal Attending Clinician Ethan Scott DO Attending Clinician 1, [facility] Attending Clinician Unavailable Lab, [facility] Fam Pob I Attending Clinician Unavailable Renata Thacker Attending Clinician Unavailable Mirella Villalobos Attending Clinician [phone] Shy Miller Attending Clinician Unavailable LILIANA LI Admitting Clinician Unavailable ADRIANA HARTMANN Admitting Clinician Unavailable Payers Payer Name Policy Type Policy Number Effective Date Expiration Date S kim Sliding Fee - Cat P [id number] 2019 2020 1 00:00:00 00:00:00 AARP/MEDICARE [id number] 2019 COMPLETE 00:00:00 WELLMED/AARP [id number] 2019 MEDICARE 00:00:00 ADVANTAGE MEDICAID [facility] [id number] 2017 00:00:00 COVID19 [id number] Problems Condition Condition Condition Status Onset Resolution Last Treating Co mments Source Name Details Category Date Date Treatment Clinician Date Obesity Obesity Disease Active Univers (BMI (BMI 5-28 ity of 30-39.9) 30-39.9) 00:00: [place] 00 Medical Branch Uses Uses Disease Active Univers Comoran as Comoran as 5-28 it y of primary primary [...] Active Uni vers 9-25 ity of 00:00: [place] [facility] COVID-19 COVID-19 Disease Active Unive rs virus virus 7-20 [place] GERD GERD Disease Active Univers (gastroeso (gastroeso 7-20 it y of phageal phageal 00:00: reflux reflux Medical disease) disease) Branch Neuropathy Neuropathy Disease Active U nivers of both of both 7-20 ity of feet feet 00:00: [place] [facility] Abdominal Abdominal Disease Active [facility] Sepsis Sepsis Disease Active [facility] Hypertensi Hypertensi Disease Active [facility] 00:[facility] Center Ureteropel Ureteropel Disease Active [facility] bessie bessie 5-25 [facility] junction junction 00:00: Medica l (UPJ) (UPJ) 00 Center obstructio obstructio n, left n, left Bilateral Bilateral Disease Active 2018-02 Uni vers foot pain foot pain 1-26 ity of 00:: [place] [facility] Kidney Kidney Disease Active 2017-02 Univers stone stone 0-15 ity of 00:: [place] [facility] Abnormal Abnormal Disease Active 2017-02 Overview: Un briana liver liver 0-15 Formattin ity of ultrasound ultrasound 00:00: g of this note Medical might be Branch different from the original. 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 0-05 it y of 2 diabetes 2 [place] mellitus mellitus 00 Medica l Branch Essential Essential Disease Active 2016-02 Uni vers hypertensi hypertensi 0-02 it y of on on 00:00: [place] [facility] HLD HLD Disease Active 2016-02 Univers (hyperlipi (hyperlipi 0-02 it y of demia) demia) 00:00: Medical Branch History of History of Disease Active 2016-02 U nivers chest pain chest pain 0-02 it y of 00:00: [place] Medical Zenda Palpitatio Palpitatio Disease Active 2016-02 U nivers ns ns 0-02 ity of 00:00: [place] [facility] No known No known Disease [facility] active active College problems problems of Medicin e Osteoporos Osteoporos Disease [facility] Abnormal Disease Active Unive rs EKG EKG [facility] Allergies, Adverse Reactions, Alerts Allergy Allergy Status Severity Reaction(s) Onset Inactive Treating Comm ents Source Name Type Date Date Clinician NO KNOWN Drug Active Univers [facility] [place] [facility]NOWN Allergy Active [facility] Social History Social Habit Start Date Stop Date Quantity Comments Source History SDOH [facility] Alcohol Std Medical Cent[facility] r Drinks History SDOH [facility] Alcohol Binge Medical Marilyn ter History SDOH [facility] Alcohol Comment Medical C enter Exposure to 2021-08-31 2021-09-10 Not sure [facility] SARS-CoV-2 00:00:00 16:05:00 [facility] (event) Zenda Alcohol intake 2019-07-12 2019-07-[address] [facility] es 00:00:00 00:00:00 non-drinker of Medical Ce nter alcohol (finding) History SDOH 2019-07-10 2019-07-[address] [facility] Alcohol Frequency 00:00:00 00:00:00 [facility] Tobacco use and 2019-07-09 2019-07-[address] [facility] [facility] k[facility] exposure 00:00:00 00:00:00 [facility] Sex Assigned At [address] [facility] 00:00:00 00:00:00 [facility] Smoking Status Start Date Stop Date Source Never smoked tobacco [facility] Medications Ordered Filled Start Stop Current Ordering Indication Dosage Frequency Signature Comments Components Source Medication Medication Date Date Medication? Clinician (SIG) Name Name metFORMIN Yes 500mg Take 1 Unive rs 500 mg 24 7-29 tablet by ity o f hr tablet 00:00: mouth [place] 00 daily with Medical breakfast. Branch metFORMIN Yes 500mg Take 1 Unive rs 500 mg 24 7-29 tablet by ity o f hr tablet 00:00: mouth [place] 00 daily with Medical breakfast. Branch metFORMIN 0 Yes 500mg Take 1 Unive rs 500 mg 24 7-29 tablet by ity o f hr tablet 00:00: mouth [place] 00 daily with Medical breakfast. Branch losartan 50 2021-0 Yes [id number] 50mg Take 1 Univers mg tablet 7-15 tablet by ity o f 00:00: mouth [place] 00 daily. Medical Branch losartan 50 2021-0 Yes [id number] 50mg Take 1 Univers mg tablet 7-15 tablet by ity o f 00:00: mouth [place] 00 daily. Medical Branch losartan 50 2021-0 Yes [id number] 50mg Take 1 Univers mg tablet 7-15 tablet by ity o f 00:00: mouth [place] 00 daily. Medical Branch clotrimazol 0 2021- No [id number] Apply to Univers e 1 % 7-15 07-30 area(s) 2 ity of topical 00:00: 04:59 (two) [place] cream 00 :00 times Medical daily for Branch 14 days. Magnesium Yes Take by [facility] 100 MG CAPS 3-21 mouth. Colleg e 10:29: of 08 Medicin e Melatonin Yes Take by [facility] 10 MG TABS 3-21 mouth. Maria Guadalupe 10:29: of 08 Medicin e furosemide 0 Yes 40mg Take 1 Unive rs 40 mg 3-17 tablet by ity of tablet 00:00: mouth [place] 00 daily. Medical Branch furosemide 0 Yes 40mg Take 1 Unive rs 40 mg 3-17 tablet by ity of tablet 00:00: mouth [place] 00 daily. Medical Branch furosemide 0 Yes 40mg Take 1 Unive rs 40 mg 3-17 tablet by ity of tablet 00:00: mouth [place] 00 daily. Medical Branch ATORVASTATI 2020-02 Yes [id number] 40mg TAKE 1 Univers N 40 mg 2-13 TABLET BY ity of tablet 00:00: MOUTH AT [place] 00 BEDTIME Medical Branch ATORVASTATI 2020-02 Yes [id number] 40mg TAKE 1 Univers N 40 mg 2-13 TABLET BY ity of tablet 00:00: MOUTH AT [place] 00 BEDTIME Medical Branch ATORVASTATI 2020-02 Yes [id number] 40mg TAKE 1 Univers N 40 mg 2-13 TABLET BY ity of tablet 00:00: MOUTH AT [place] 00 BEDTIME Medical Branch azelastine 2020-02 Yes [id number] 1{spray Use 1 Univers 137 mcg 2-02 } [place] in ity of (0.1 %) 00:00: each [place] nasal spray 00 nostril 2 Med ical (two) Branch times daily. Use in each nostril as directed fluticasone 2020-02 Yes [id number] 2{puff} Inhale 2 Univers propionate 2-02 Puffs 2 ity of (FLOVENT 00:00: (two) [place] HFA) 44 00 times Medical mcg/actuati daily. Branch on inhaler Rinse mouth after each use. azelastine 2020-02 Yes [id number] 1{spray Use 1 Univers 137 mcg 2-02 } [place] in ity of (0.1 %) 00:00: each [place] nasal spray 00 nostril 2 Med ical (two) Branch times daily. Use in each nostril as directed fluticasone 2020-02 Yes [id number] 2{puff} Inhale 2 Univers propionate 2-02 Puffs 2 ity of (FLOVENT 00:00: (two) [place] HFA) 44 00 times Medical mcg/actuati daily. Branch on inhaler Rinse mouth after each use. azelastine 2020-02 Yes [id number] 1{spray Use 1 Univers 137 mcg 2-02 } [place] in ity of (0.1 %) 00:00: each [place] nasal spray 00 nostril 2 Med ical (two) Branch times daily. Use in each nostril as directed fluticasone 2020-02 Yes [id number] 2{puff} Inhale 2 Univers propionate 2-02 Puffs 2 ity of (FLOVENT 00:00: (two) [place] HFA) 44 00 times Medical mcg/actuati daily. [...] 1 [facility] (DITROPAN 1-10 Tablet by [facility] XL) 10 MG 00:00: mouth of CR tablet 00 daily. Medicin e oxybutynin 2020-02 Yes 10mg Take 1 [facility] (DITROPAN 1-10 Tablet by [facility] XL) 10 MG 00:00: mouth of CR tablet 00 daily. Medicin e albuterol Yes [id number] 2{puff} Inhale 2 Univers (PROAIR 9-03 Puffs ity of HFA) 90 00:00: every 6 [place] mcg/actuati 00 (six) Medical on inhaler hours as Branc h needed for Wheezing or Shortness of Breath. albuterol Yes [id number] 2{puff} Inhale 2 Univers (PROAIR 9-03 Puffs ity of HFA) 90 00:00: every 6 [place] mcg/actuati 00 (six) Medical on inhaler hours as Branc h needed for Wheezing or Shortness of Breath. albuterol Yes [id number] 2{puff} Inhale 2 Univers (PROAIR 9-03 Puffs ity of HFA) 90 00:00: every 6 [place] mcg/actuati 00 (six) Medical on inhaler hours as Branc h needed for Wheezing or Shortness of Breath. amLODIPine Yes [id number] 2.5mg Take 1 Univers 2.5 mg 6-07 tablet by ity of tablet 00:00: mouth [place] 00 daily. Medical Branch amLODIPine Yes [id number] 2.5mg Take 1 Univers 2.5 mg 6-07 tablet by ity of tablet 00:00: mouth [place] 00 daily. Medical Branch amLODIPine Yes [id number] 2.5mg Take 1 Univers 2.5 mg 6-07 tablet by ity of tablet 00:00: mouth [place] 00 daily. Medical Branch hydrochloro 2020-0 2020- No 25mg Take 25 mg [facility] thiazide 3-22 -22 by mouth [place] e (HYDRODIURI 16:58: 00:00 daily. of L) 25 MG 25 :00 Medicin tablet e Magnesium Yes Take by [facility] 100 MG CAPS 05-04 mouth. Colleg e 15:58: of 46 Medicin e Melatonin Yes Take by [facility] 10 MG TABS 3-22 mouth. [place] 15:58: of 46 Medicin e hydrochloro 0 [...] 1 [facility] (DITROPAN 3-22 Tablet by [facility] SILVER) 10 MG 00:00: mouth of CR tablet 00 daily. Medicin e oxybutynin 0 2020- No 10mg Take 1 [facility] (DITROPAN 3-22 11-10 [facility] 10 MG 00:00: 00:00 mouth of CR tablet 00 :00 daily. Medicin e hydrochloro 2019-02 Yes 25mg Take 25 mg Art thiazide 1-23 by [facility] (HYDRODIURI 17:00: daily. of L) 25 MG 06 Medicin tablet e Magnesium 2019- Yes Take by [facility] 100 MG CAPS 1-23 mouth. [facility] 17:00: of Medicin e Melatonin 2019- Yes Take by [facility] 10 MG TABS 1-23 mouth. [place] 17:00: of 06 Medicin e Potassium 2019-02 Yes Take 2 [facility] Citrate 1-23 tablets PO Colleg e (UROCIT-K 00:00: TID of 10) 10 MEQ 00 Medicin (1080 MG) e TBCR Potassium 2019-02- No Take 2 [facility] Citrate 1-23 03-22 tablets PO Colle ge (UROCIT-K 00:00: 00:00 TID of 10) 10 MEQ 00 :00 Medicin (1080 MG) e TBCR levothyroxi 2019-02 Yes 25ug Take 25 [place] raul ne 1-02 mcg by College (SYNTHROID) 00:00: mouth. of 25 MCG 00 Medicin tablet e levothyroxi 2019-02 Yes 25ug Take 25 [place] raul ne 1-02 mcg by College (SYNTHROID) 00:00: mouth. of 25 MCG 00 Medicin tablet e levothyroxi 2019-02- No 25ug Take 25 [place] ne 1-02 11-10 mcg by College (SYNTHROID) 00:00: 00:00 mouth. of 25 MCG 00 :00 Medicin tablet e aspirin 81 2019-02 Yes [id number] 81mg Take 1 Univers mg chewable 0-01 [id number] tablet by i ty of tablet 00:00: mouth [place] 00 daily. Medical Branch aspirin 81 2019-02 Yes [id number] 81mg Take 1 Univers mg chewable 0-01 [id number] tablet by i ty of tablet 00:00: mouth [place] 00 daily. Medical Branch aspirin 81 2019-02 Yes [id number] 81mg Take 1 Univers mg chewable 0-01 [id number] tablet by i ty of tablet 00:00: mouth [place] 00 daily. Medical Branch atorvastati 2020-0 Yes [facility] n (LIPITOR) 6-13 College 40 MG 00:00: of tablet 00 Medicin e atorvastati 2019-0 Yes [facility] n (LIPITOR) 6-13 College 40 MG 00:00: of tablet 00 Medicin e atorvastati 2019-0 Yes [facility] n (LIPITOR) 6-13 College 40 MG 00:00: of tablet 00 Medicin e atorvastati 2019-0 Yes [facility] n (LIPITOR) 6-13 College 40 MG 00:00: of tablet 00 Medicin e atorvastati 2019-0 Yes [facility] n (LIPITOR) 6-13 College 40 MG 00:00: of tablet 00 Medicin e amlodipine 2019-0 Yes [facility] (NORVASC) 5 6-02 College MG tablet 00:00: of 00 Medicin e amlodipine 2020-0 Yes [facility] (NORVASC) 5 6-02 College MG tablet 00:00: of 00 Medicin e amlodipine 2020-0 Yes [facility] (NORVASC) 5 6-02 College MG tablet 00:00: of 00 Medicin e amlodipine 2020-0 Yes [facility] 6[facility]02 College MG tablet 00:00: of 00 Medicin e amlodipine 2020-0 Yes [facility] (NORVASC) 5 6-02 College MG tablet 00:00: of 00 Medicin e losartan 2020-0 Yes [facility] (COZAAR) 5-30 College 100 MG 00:00: of tablet 00 Medicin e losartan 2020-0 Yes [facility] (COZAAR) 5-30 College 100 MG 00:00: of tablet 00 Medicin e losartan 2020-0 Yes [facility] (COZAAR) 5-30 College 100 MG 00:00: of tablet 00 Medicin e losartan 2020-0 Yes [facility] (COZAAR) 5-30 College 100 MG 00:00: of tablet 00 Medicin e losartan 2020-0 Yes [facility] (COZAAR) 5-30 College 100 MG 00:00: [...] for premedicat ion hydrALAZINE 2020-0 Yes 50mg Q.[id number] Take [address] [facility] (APRESOLINE 2-17 [id number] by mouth 3 [facility] ) 50 MG 00:00: 3D (three) Medical tablet 00 times Center daily . hydroCHLORO 2020-0 Yes 25mg QD Take [address] [facility] [address] thiazide 2-17 by mouth [facility]ukes (HYDRODIURI 00:00: daily. Medi angelica L) 25 MG 00 Center tablet hydrALAZINE 2020-0 Yes 50mg Q.[id number] Take [address] [facility] (APRESOLINE 2-17 [id number] by mouth 3 [facility] ) 50 MG 00:00: 3D (three) Medical tablet 00 times Center daily . hydroCHLORO 2020-0 Yes 25mg QD Take [address] thiazide 2-17 by mouth [facility]ukes (HYDRODIURI 00:00: daily. Medi angelica L) 25 MG 00 Center tablet hydrALAZINE 2020-0 Yes 50mg Q.[id number] Take [address] [facility] (APRESOLINE 2-17 [id number] by mouth 3 [facility] ) 50 MG 00:00: 3D (three) Medical tablet 00 times Center daily . hydroCHLORO 2020-0 Yes 25mg QD Take [address] [facility] [address] thiazide 2-17 by mouth [facility]ukes (HYDRODIURI 00:00: daily. Medi angelica L) 25 MG 00 Center tablet aspirin EC 2019-0 Yes 81mg Take 81 [...] by mouth Luke s tablet 00:00: daily. [address] aspirin 81 2019-0 Yes 81mg QD Take [address] MG chewable 6-21 by mouth Luke s tablet 00:00: daily. [facility] 00 [place] aspirin 81 2018-0 Yes 81mg QD Take [address] MG chewable 6-21 by mouth Luke s tablet 00:00: daily. Medical 00 [place] atorvastati 2017-02 Yes 40mg QD Take [address] n (LIPITOR) 1-30 by mouth Luke s 40 MG 00:00: daily. Medical tablet 00 [place] amLODIPine 2017-02 Yes 2.5mg QD Take 2.[address] (NORVASC) 5 1-30 mg by Lukes MG tablet 00:00: mouth Medical 00 daily . [place] atorvastati 2017-02 Yes 40mg QD Take [address] n (LIPITOR) 1-30 by mouth Luke s 40 MG 00:00: daily. Medical tablet 00 [place] amLODIPine 2017-02 Yes 2.5mg QD Take 2.[address] (NORVASC) 5 1-30 mg by [facility]ukes MG tablet 00:00: mouth Medical 00 daily . [place] atorvastati 2017-02 Yes 40mg QD Take [address] n (LIPITOR) 1-30 by mouth Luke s 40 MG 00:00: daily. Medical tablet 00 [place] amLODIPine 2017-02 Yes 2.5mg QD Take 2.[address] (NORVASC) 5 1-30 mg by [facility] MG tablet 00:00: mouth Medical 00 daily . [place] Immunizations Ordered Filled Immunization Date Status Comments [facility] e Immunization Name Name SARS-COV-2 COVID-19 2021-01-15 Completed Unive rsity of MODERNA 0.25ML 00:00:00 [facility] BOOSTER VACCINE Branch SARS-COV-2 COVID-19 2021-01-15 Completed Unive rsity of MODERNA 0.25ML 00:00:00 [facility] BOOSTER VACCINE Branch SARS-COV-2 COVID-19 2021-01-15 Completed Unive rsity of MODERNA 0.25ML 00:00:00 [facility] BOOSTER VACCINE Branch Influenza High Dose 2019-11-08 Completed Unive rsity of [place] 00:00:00 [facility] Influenza High Dose 2019-11-08 Completed Unive rsity of [place] 00:00:00 [facility] Influenza High Dose 2019-11-08 Completed Unive rsity of [place] 00:00:00 [facility] Influenza High Dose 2019-02-13 Completed Unive rsity of 00:00:00 [facility] Influenza High Dose 2019-02-13 Completed Unive rsity of 00:00:00 [facility] Influenza High Dose 2019-02-13 Completed Unive rsity of 00:00:00 [facility] TDAP 2017-11-10 Completed University of 00:00:00 [facility] TDAP 2017-11-10 Completed University of 00:00:00 [facility] TDAP 2017-11-10 Completed University of 00:00:00 [facility] Pneumococcal 2017-06-09 Completed University o f Polysaccharide, 00:00:00 [place] Med ical PPSV23 (PNEUMOVAX) Branch Pneumococcal 2017-06-09 Completed University o f Polysaccharide, 00:00:00 [place] Med ical PPSV23 (PNEUMOVAX) Branch Pneumococcal 2017-06-09 Completed University o f Polysaccharide, 00:00:00 [place] Med ical PPSV23 (PNEUMOVAX) Branch Influenza High Dose 2016-11-14 Completed Unive rsity of 00:00:00 [facility] Influenza High Dose 2016-11-14 Completed Unive rsity of 00:00:00 [facility] Influenza High Dose 2016-11-14 Completed Unive rsity of 00:00:00 [facility] Vital Signs Vital Name Observation Time Observation Value Comments Source HEIGHT 2019-07-08 00:00:00 147.3 cm WEIGHT 2019-07-08 00:00:00 57.743 kg Systolic blood 2021-09-10 21:07:00 121 mm[Hg] Univer sity of pressure [facility] Diastolic blood 2021-09-10 21:07:00 66 mm[Hg] Unive rsity of pressure [facility] Heart rate 2021-09-10 21:07:00 79 /min [facility] Body temperature 2021-09-10 21:07:00 [facility].94 [facility] height 2021-09-10 21:07:00 160 cm [facility] Body weight 2021-09-10 21:07:00 61.689 kg [facility] BMI 2021-09-10 21:07:00 24.09 kg/m2 [facility] Oxygen saturation in 2021-09-10 21:07:00 97 /min [facility] blood by [facility] Pulse oximetry Branch Systolic blood 2021-05-03 15:25:00 121 mm[Hg] [facility] pressure Medicine Diastolic blood 2021-05-03 15:25:00 65 mm[Hg] [facility] pressure Medicine Heart rate 2021-05-03 15:25:00 88 /min [facility] Systolic blood 2020-12-23 21:48:00 137 mm[Hg] [facility] Medicine Diastolic blood 2020-12-23 21:48:00 69 mm[Hg] [facility] Medicine Heart rate 2020-12-23 21:48:00 73 /min [facility] Body temperature 2020-12-23 21:48:00 36.83 Monique [facility] Respiratory rate 2020-12-23 21:48:00 15 /min [facility] Body height 2020-12-23 21:48:00 162.6 cm [facility] Body weight 2020-12-23 21:48:00 58.968 kg [facility] BMI 2020-12-23 21:48:00 22.31 kg/m2 [facility] Systolic blood 2020-05-04 15:57:00 131 mm[Hg] [facility] Medicine Diastolic blood 2020-05-04 15:57:00 60 mm[Hg] [facility] Medicine Heart rate 2020-05-04 15:57:00 67 /min [facility] Respiratory rate 2020-05-04 15:57:00 18 /min [facility] Body height 2020-05-04 15:57:00 147.3 cm [facility] Body weight 2020-05-04 15:57:00 58.514 kg [facility] BMI 2020-05-04 15:57:00 26.96 kg/m2 [facility] Systolic blood 2020-01-06 16:58:00 146 mm[Hg] [facility] pressure Medicine Diastolic blood 2020-01-06 16:58:00 71 mm[Hg] [facility] Medicine Heart rate 2020-01-06 16:58:00 88 /min [facility] Body temperature 2020-01-06 16:58:00 36.44 Monique [facility] Respiratory rate 2020-01-06 16:58:00 16 /min [facility] Body height 2020-01-06 16:58:00 144.8 cm [facility] Body weight 2020-01-06 16:58:00 58.968 kg [facility] BMI 2020-01-06 16:58:00 28.13 kg/m2 [facility] C ollege of Medicine Systolic blood 2020-01-06 16:58:00 146 mm[Hg] [facility] of pressure Medicine Diastolic blood 2020-01-06 16:58:00 71 mm[Hg] [facility] of pressure Medicine Heart rate 2020-01-06 16:58:00 88 /min [facility] Medicine Body temperature 2020-01-06 16:58:00 36.44 Monique [facility] Respiratory rate 2020-01-06 16:58:00 16 /min [facility] Body height 2020-01-06 16:58:00 144.8 cm [facility] Body weight 2020-01-06 16:58:00 58.968 kg [facility] BMI 2020-01-06 16:58:00 28.13 kg/m2 [facility] Systolic blood 2019-10-07 14:05:00 127 mm[Hg] [facility] of pressure Medicine Diastolic blood 2019-10-07 14:05:00 67 mm[Hg] [facility] of pressure Medicine Heart rate 2019-10-07 14:05:00 70 /min [facility] Body temperature 2019-10-07 14:05:00 36.39 Monique [facility] Respiratory rate 2019-10-07 14:05:00 16 /min [facility] Body height 2019-10-07 14:05:00 162.6 cm [facility] C ollege of Medicine Body weight 2019-10-07 14:05:00 58.968 kg [facility] BMI 2019-10-07 14:05:00 22.31 kg/m2 [facility] Systolic blood 2019-10-07 14:05:00 127 mm[Hg] [facility] Medicine Diastolic blood 2019-10-07 14:05:00 67 mm[Hg] [facility] Medicine Heart rate 2019-10-07 14:05:00 70 /min [facility] Body temperature 2019-10-07 14:05:00 36.39 Monique [facility] Respiratory rate 2019-10-07 14:05:00 16 /min [facility] Body height 2019-10-07 14:05:00 162.6 cm [facility] Body weight 2019-10-07 14:05:00 58.968 kg [facility] BMI 2019-10-07 14:05:00 22.31 kg/m2 [facility] HEIGHT 2019-07-08 00:00:00 147.3 cm WEIGHT 2019-07-08 00:00:00 57.743 kg pulse rate 2019-07-01 08:14:01 80 /min [facility] Health blood pressure, 2019-07-01 08:14:01 71 mm[Hg] [facility] diastolic Health blood pressure, 2019-07-01 08:14:01 171 mm[Hg] [facility] systolic Health pulse rate 2019-06-25 09:35:00 76 /min [facility] blood pressure, 2019-06-25 09:35:00 77 mm[Hg] [facility] diastolic Health blood pressure, 2019-06-25 09:35:00 153 mm[Hg] [facility] systolic Health Procedures Procedure Date / Time Performing Clinician Source Performed MEDICATION CORRESPONDENCE 2021-09-13 05:01:00 Doctor Unassigned, [facility] [place] Medical Branch POCT URINALYSIS DIPSTICK 2020-12-23 00:00:00 Adams Germain [facility] POCT URINALYSIS DIPSTICK 2020-12-23 00:00:00 [facility] POCT URINALYSIS DIPSTICK 2020-01-06 00:00:00 Adams Germain [facility] BASIC METABOLIC PANEL 2019-10-07 14:32:00 Adams Germain [facility] MAGNESIUM 2019-10-07 14:32:00 Adams Germain [facility] URIC ACID 2019-10-07 14:32:00 Adams Germain [facility] Plan of Care Planned Activity Planned Date [...] Medical Center INFLUENZA VACCINE (#1)] Future Scheduled 2021-10-[address] [facility] Test 00:00:00 (#1) [code = Medical Center INFLUENZA VACCINE (#1)] Future Scheduled 2021-05-04 ZOSTER VACCINE (1 of [facility] Test 15:51:29 2) [code = ZOSTER of Medicin e VACCINE (1 of 2)] Future Scheduled 2021-05-04 Screening for [facility] Col [facility]ge Test 15:51:29 osteoporosis of Medicine (procedure) [code = 812728659] Future Scheduled 2021-05-04 Pneumococcal 65+ (1 [facility] or [place] Test 15:51:29 of 1 - PPSV23) [code of Medi cine = Pneumococcal 65+ (1 of 1 - PPSV23)] Future Scheduled 2021-05-04 MEDICARE AWV [facility] Kristine ege Test 15:51:29 (Initial) [code = of Medicin e MEDICARE AWV (Initial)] Future Scheduled 2021-05-04 FLU VACCINE > 6 [facility] C [facility]lege Test 15:51:29 MONTHS [code [...] Medicine Future Scheduled 2021-05-04 TETANUS SHOT (ADULT) [employer] Test 15:51:29 [code = TETANUS SHOT of Medi cine (ADULT)] Future Scheduled 2021-05-04 US RENAL BILATERAL Expected: [employer] Test 00:00:00 [code = 83669] 05/04/2021, of Medicine Expires: 05/04/2021 Future Scheduled 2021-02-[address] [facility] Test 00:00:00 (12+) [code = Medical Center DEPRESSION SCREENING (12+)] Future Scheduled 2021-02-13 FALLS RISK SCREENING [facility] Test 00:00:00 [code = FALLS RISK Medical C enter SCREENING] Future Scheduled 2021-02-[address] [facility] Test 00:00:00 (12+) [code = Medical Center DEPRESSION SCREENING (12+)] Future Scheduled 2021-02-13 FALLS RISK SCREENING [facility] Test 00:00:00 [code = FALLS RISK Medical C enter SCREENING] Future Scheduled 2021-01-03 COVID-19 Vaccine (1) [employer] Test 08:34:34 [code = COVID-19 of Medicine Vaccine (1)] Future Scheduled 2021-01-03 ZOSTER VACCINE (1 of [employer] Test 08:34:34 2) [code = ZOSTER of Medicin e VACCINE (1 of 2)] Future Scheduled 2021-01-03 Screening for [facility] Test 08:34:34 osteoporosis of Medicine (procedure) [code = 816120590] Future Scheduled 2021-01-03 Pneumococcal 65+ (1 [employer] Test 08:34:34 of 1 - PPSV23) [code of Medi cine = Pneumococcal 65+ (1 of 1 - PPSV23)] Future Scheduled 2021-01-03 MEDICARE AWV [facility] Test 08:34:34 (Initial) [code = of Medicin e MEDICARE AWV (Initial)] Future Scheduled 2021-01-03 FLU VACCINE > 6 [facility] C [facility]lege Test 08:34:34 MONTHS [code = FLU of Medici ne VACCINE > 6 MONTHS] Future Scheduled 2021-01-03 FALL SCREEN [code = [facility] Test 08:34:34 FALL SCREEN] of Medicine Future Scheduled 2021-01-03 TETANUS SHOT (ADULT) [facility] Test 08:34:34 [code = TETANUS SHOT of Medi cine (ADULT)] Future Scheduled 2020-10-[address] [facility] Test 00:00:00 (#1) [code = Medical Center INFLUENZA VACCINE (#1)] Diagnostic Test 2020-07-11 US RENAL BILATERAL Expected: [facility] Pending 00:00:00 [code = 55613] 07/11/2020, of Medicine Expires: 01/11/2021 Future Scheduled [...] 65+ YRS (2 - PCV)] Future Scheduled 2018-06-09 PNEUMOCOCCAL 65+ YRS [facility] Test 00:00:00 (2 - PCV) [code = Medical Ce nter PNEUMOCOCCAL 65+ YRS (2 - PCV)] Future Scheduled 1986 SHINGLES VACCINES ([address] [facility] Test 00:00:00 of 2) [code = Medical Center SHINGLES VACCINES (1 of 2)] Future Scheduled 1986 SHINGLES VACCINES ([address] [facility] Test 00:00:00 of 2) [code = [facility] Center SHINGLES VACCINES (1 of 2)] Future Scheduled 1986 SHINGLES VACCINES ([address] [facility] Test 00:00:00 of 2) [code = [facility] Center SHINGLES VACCINES (1 of 2)] Future Scheduled 1948 COVID-19 VACCINE (1) [facility] Test 00:00:00 [code = COVID-[address] [facility] [address] VACCINE (1)] Future Scheduled 1936 COVID-[address] [facility] Test 00:00:00 (#1) [code = [facility] Center COVID-19 VACCINE (#1)] Future Scheduled 1936 COVID-[address] [facility] Test 00:00:00 (#1) [code = [facility] Center COVID-19 VACCINE (#1)] Future Scheduled 1936 DXA SCAN [code = DXA [facility] Test 00:00:00 SCAN] [facility] Future Scheduled 1936 DXA SCAN [code = DXA [facility] Test 00:00:00 SCAN] [facility] Future Scheduled PTH,INTACT,WITH Ordered: [facility] ollege Test CALCIUM,PO4,CREAT 10/07/2019 of Medicin e [code = NOCPT] Future Scheduled TETANUS SHOT (ADULT) [facility] Test [code = TETANUS SHOT of Medi cine (ADULT)] Future Scheduled ZOSTER VACCINE (1 of [facility] Test 2) [code = ZOSTER of Medicin e VACCINE (1 of 2)] Future Scheduled OSTEOPOROSIS [facility] Krist[facility] Test SCREENING [code = of Medicin e OSTEOPOROSIS SCREENING] Future Scheduled MEDICARE AWV [facility]ine [facility] Test (Initial) [code = of Medicin e MEDICARE AWV (Initial)] Future Scheduled FLU VACCINE > 6 [facility] C [facility]lege Test MONTHS [code = FLU of Medici ne VACCINE > 6 MONTHS] Future Scheduled FALL SCREEN [code = [facility] or [place] Test FALL SCREEN] of Medicine Future Scheduled BMI FOLLOW UP PLAN [facility] Test [code = BMI FOLLOW of Medici ne UP PLAN] Future Scheduled ZOSTER VACCINE (1 of [employer] Test 2) [code = ZOSTER [...] of Medicine Future Scheduled TETANUS SHOT (ADULT) [employer] Test [code = TETANUS SHOT of Medi cine (ADULT)] Future Scheduled COVID-19 Vaccine (1) [employer] Test [code = COVID-19 of Medicine Vaccine (1)] Future Scheduled BMI FOLLOW UP PLAN [employer] Test [code = BMI FOLLOW of Medici ne UP PLAN] Future Scheduled ZOSTER VACCINE (1 of [employer] Test 2) [code = ZOSTER of Medicin e VACCINE (1 of 2)] Future Scheduled Screening for [facility] Col [facility]ge Test osteoporosis of Medicine (procedure) [code = 843850833] Future Scheduled MEDICARE IPPE [employer] Col [employer] Test (WELCOME TO of Medicine MEDICARE) [code = MEDICARE IPPE (WELCOME TO MEDICARE)] Future Scheduled FLU VACCINE > 6 [facility] C ollege Test MONTHS [code = FLU of Medici ne VACCINE > 6 MONTHS] Future Scheduled FALL SCREEN [code = [employer] [facility] FALL SCREEN] of Medicine Future Scheduled TETANUS SHOT (ADULT) [employer] Test [code = TETANUS SHOT of Medi cine (ADULT)] Encounters Start End Encounter Admission Attending Care Care Encounter Source Date/Time Date/Time Type Type Clinicians Facility Department ID 2020-11-29 Outpatient [facility] [id number] [facility] 10:44:36 [id number] [facility] 2020-11-29 Outpatient [facility] [id number] Legacy 08:37:05 [id number] [facility] 2020-11-26 Outpatient [facility] [id number] Legacy 17:47:41 [id number] [facility] 2020-11-26 Outpatient [facility] [id number] Legacy 17:43:25 [id number] [facility] 2020-11-26 Outpatient [facility] [id number] Legacy 17:38:25 [id number] [facility] 2020-11-26 Outpatient [facility] [id number] Legacy 17:36:45 [id number] [facility] 2020-11-26 Outpatient [facility] [id number] Legacy 17:34:20 [id number] [facility] 2020-11-26 Outpatient [facility] [id number] Legacy 17:30:46 [id number] [facility] 2020-11-26 Outpatient [facility] [id number] Legacy 17:29:46 [id number] [facility] 2020-11-17 Inpatient ER GUILLERMO, [facility] Urology [id number] SLE 14:52:09 LILIANA 2021-09-17 2021-09-17 Outpatient MICHAEL SALDIVAR [facility] [id number] Univers 11:00:00 11:00:00 MICHAEL MATT [facility] 2021-09-13 2021-09-13 Telephone [facility] [id number] Univers 00:00:00 00:00:00 [facility] [id number] ity of [place] 4.2.7.2.686 Kilo as BHARTI?BLEA [phone] [address] OFFICE [facility] 2021-09-13 2021-09-13 Orders Doctor LILLIANA 1.2.840.114 [id number] [facility] 00:00:00 00:00:00 Only Unassigned, MACKENZIE 350.1.13.10 ity of [place] [facility] 4.2.7.2.686 Kilo as [phone] [address] 2021-09-10 2021-09-10 Office [facility] 1.2.840.114 [id number] Univers 16:00:00 17:05:49 Visit [facility] [id number] ity [facility] 4.2.7.2.686 Kilo as BHARTI?BLEA [phone] [address] OFFICE BUILDING 2021-05-03 2021-05-03 Office ROSE Germain 1.2.840.114 [id number] [facility] 10:00:00 11:16:44 Visit Adams E AMBULATOR 350.1.13.21 College Y 0.2.7.2.686 of [id number] Medi raimundo 300 e 2021-05-03 2021-05-03 Outpatient [facility] [id number] [facility] 10:26:26 10:26:26 Colleg e of Medicin e 2021-05-03 2021-05-03 Outpatient [facility] [id number] [facility] 10:13:26 10:13:26 Colleg e of Medicin e 2020-12-23 2021-01-10 Office LINK, [facility] 1.2.840.114 [id number] [facility] 15:05:24 13:24:06 Visit ADAMS AMBULATOR 350.1.13.21 College Y 0.2.7.2.686 of [id number] Medi raimundo 300 e 2020-05-04 2020-05-04 Office LINK, [facility] 1.2.840.114 [id number] [facility] 10:43:07 12:09:48 Visit ADAMS AMBULATOR 350.1.13.21 College Y 0.2.7.2.686 of [id number] Medi raimundo 300 e 2020-04-29 2020-04-29 Telephone Beto [facility] [id number] 00:00:00 00:00:00 Daniel [place] 350.1.13.10 [place] 4.2.7.2.686 Professio [phone] [address] 2020-04-29 2020-04-29 Refill Beto RIDELIA 1.2.840.114 [id number] 00:00:00 00:00:00 Daniel [place] 350.1.13.10 [place] 4.2.7.2.686 Professio [phone] [address] 2020-04-25 2020-04-25 Urgent Provider, [facility] [id number] 10:12:47 10:32:47 Care [facility] 350.1.13.10 Care [place] 4.2.7.2.686 Professio [phone] nal 044 Office Building One 2020-04-15 2020-04-15 Telephone Sarahi [facility] 1.2.840.114 [id number] 00:00:00 00:00:00 [facility] 350.1.13.10 [place] 4.2.7.2.686 Professio [phone] nal 044 Office [facility] 2020-03-07 2020-03-07 Patient Tyler [facility] 1.2.840.114 [id number] 00:00:00 00:00:00 Outreach Ethan PRIMARY 350.1.13.10 [facility] 4.2.7.2.686 PAVILLION [id number] 388 2020-01-16 2020-01-16 [facility] 1.2.840.114 [id number] 16:09:25 16:24:25 ne Visit [facility] 350.1.13.10 [place] 4.2.7.2.686 Professio [phone] nal 044 Office [facility] 2020-01-12 2020-01-12 Orders Doctor LILLIANA 1.2.840.114 [id number] 00:00:00 00:00:00 Only Unassigned, MACKENZIE 350.1.13.10 [place] [facility] 4.2.7.2.686 [id number] 009 2020-01-06 2020-01-06 Office Link, [facility] 1.2.840.[id number] [place] [address] 10:46:16 11:44:31 Visit Adams E AMBULATOR 350.1.13.21 College Y 0.2.7.2.686 [id number] [facility] 300 e 2020-01-06 2020-01-06 Office Link, [facility] 1.2.840.114 [id number] 10:46:16 11:44:31 Visit Adams E AMBULATOR 350.1.13.21 Y 0.2.7.2.686 [id number] 300 2019-12-16 2019-12-16 Case [facility] 1.2.840.114 [id number] 00:00:00 00:00:00 Management [facility] 350.1.13.10 [place] 4.2.7.2.686 Professio [phone] nal 044 Office Building One 2019-12-12 2019-12-12 Voip Network Technician 1, Adc Lab [facility] 1.2.840.114 [id number] 09:36:54 09:51:54 Visit [place] 350.1.13.10 [place] 4.2.7.2.686 [place] [id number] [id number] 2019-12-12 2019-12-12 Telephone Sarahi [facility] 1.2.840.114 [id number] 00:00:00 00:00:00 [facility] 350.1.13.10 [place] 4.2.7.2.686 Professio [phone] [place] [address] Office Building One 2019-12-05 2019-12-05 Orders Doctor LILLIANA 1.2.840.114 [id number] 00:00:00 00:00:00 Only Unassigned, MACKENZIE 350.1.13.10 [place] [facility] 4.2.7.2.686 [id number] 009 2019-11-14 2019-11-14 Case Sarahi [facility] 1.2.840.114 [id number] 00:00:00 00:00:00 Management [facility] 350.1.13.10 [place] 4.2.7.2.686 Professio [phone] [place] [address] Office [facility] 2019-11-13 2019-11-13 Beto Mcclain [facility] 1.2.840.114 [id number] 00:00:00 00:00:00 Management [facility] 350.1.13.10 [place] 4.2.7.2.686 Professio [phone] [place] [address] Office [facility] 2019-11-08 2019-11-08 Office Sarahi [facility] 1.2.840.114 [id number] 09:44:58 11:00:23 Visit [facility] 350.1.13.10 [place] 4.2.7.2.686 Professio [phone] [place] [address] Office [facility] 2019-10-07 2019-10-07 Office Bang [facility] 1.2.840.[id number] [place] [address] 08:45:50 10:08:26 Visit Adams Dias AMBULATOR 350.1.13.21 College Y 0.2.7.2.686 of [id number] Medi raimundo 300 e 2019-10-07 2019-10-07 Office Link, [facility] 1.2.840.114 [id number] 08:45:50 10:08:26 Visit Adams Dias AMBULATOR 350.1.13.21 Y 0.2.7.2.686 [id number] 300 2019-08-29 2019-08-29 Urgent Lab, Adc [facility] 1.2.840.114 [id number] 11:00:00 11:20:00 Care [facility]am [facility] 350.1.13.10 [place] 4.2.7.2.686 Professio [phone] nal 044 Office Building One 2019-07-30 2019-07-30 Office ADRIAN Thacker LC Encounter / Legacy 00:00:00 00:00:00 Visit Renata [id number] Com natalee [id number] Health 2019-07-01 2019-07-01 Office Wilfredo, NICOLASA LC Encounter/ Legacy 00:00:00 00:00:00 Visit Mirella [id number] Com natalee Jono [id number] Health 2019-07-01 2019-07-01 Office WilfredoNICOLASA willingham LC Encounter/ Legacy 00:00:00 00:00:00 Visit Mirella [id number] Com natalee Jono 773146 ty Health 2019-07-01 2019-07-01 Office WilfredoMirella willingham LC Encounter/ Legacy 00:00:00 00:00:00 Visit Shy Miller [id number] [address] [place], [place] [address]i 635282 Health 2019-06-25 2019-06-25 Office Wilfredo, [facility] LC Encounter/ Legacy 00:00:00 00:00:00 Visit Mirella [id number] Com natalee Jono [id number] Health 2019-06-25 2019-06-25 Office Wilfredo, NICOLASA LC Encounter/ Legacy 00:00:00 00:00:00 Visit Mirella [id number] Com natalee Jono [id number] Health 2019-06-25 2019-06-25 Office Wilfredo, NICOLASA LC Encounter/ Legacy 00:00:00 00:00:00 Visit Mirella [id number] Com natalee Jono [id number] [facility] 2019-06-25 2019-06-25 Office Mirella Villalobos [facility] Encounter/ Legacy 00:00:00 00:00:00 Visit Renata Thacker [id number] Red 702368 [facility] Results Test Description Test Time Test Comments Results Result Comments Source POCT URINALYSIS DIPSTICK 2020-12-23 00:00:00 Test Item Value Reference Range Interpretation Comme nts COLOR UA (test code = 5778-6) Yellow YELLOW/STRAW CLARITY UA (test code = 33132-6) Clear CLEAR GLUCOSE UA (test code = 5792-7) Negative NEGATIVE BILIRUBIN UA (test code = 5770-3) Negative NEGATIVE KETONES UA (test code = 11369-2) Negative NEGATIVE SPECIFIC GRAVITY UA (test code [...] NEGATIVE REDUCING SUBSTANCES URINE (test code = 09921-1) NEGATI VE Lab Interpretation (test code = 50691-3) [facility]normal [facility] [id number] 00:00:00 Test Item Value Reference Range Interpretation Comments COLOR UA (test code = 5778-6) Light Yellow YELLOW/STRAW CLARITY UA (test code = Cloudy CLEAR 58756-8) GLUCOSE UA (test code = Negative NEGATIVE 5792-7) BILIRUBIN UA (test code = Negative NEGATIVE 5770-3) KETONES UA (test code = Negative NEGATIVE 94685-0) SPECIFIC GRAVITY UA (test 1.005-1.035 code = [...] 5802-4) REDUCING SUBSTANCES URINE (test code = 16108-1) [id number] 11:28:02 Test Item Value Reference Range Interpretation Comments MAGNESIUM (test code = See_Comment Unle ss Otherwise 32692-0) Indicated, All Testing Performed At: C linical Pathology [facility], [address] [place] [address] Laborator y Director: Tani Vazquez M.D. CLIA Number [id number] [employer] Acc[employer] N o. 11112-94 [Autom ated message] The sy stem which generated this result transmitted ref erence range: 1.6 - 2. 6 MG/DL. The reference r nanci was not used to int erpret this result as normal/abnormal . [facility] [id number] 08:53:12 Test Item Value Reference Range Interpretation Comments GLUCOSE (test code = See_Comment H [Autom ated message] 2345-7) The system [employer] generated this result transmitted ref erence range: [...] L [Au tomated message] 2160-0) The system [employer] generated this result transmitted ref erence range: 0.60 - 1 .30 MG/DL. The refe rence range was not u sed to interpret this result as normal/abnor mal. EGFR AA (test code = See_Comment [Autom ated message] 36299-3) The system [employer] generated this result transmitted ref erence range: >60 ML/MIN/1.73. Th e reference range was not used to int erpret this result as normal/abnormal . EGFR (test code = See_Comment [Automate d message] 65055-5) The system [employer] generated this result transmitted ref erence range: >60 ML/MIN/1.73. Th e reference range was not used to int erpret this result as normal/abnormal . SODIUM (test code = See_Comment [Automa kendrick message] 2951-2) The system [employer] generated this result transmitted ref erence range: 133 - 14 6 MEQ/L. The refe rence range was not u sed to interpret this result as normal/abnor mal. POTASSIUM (test code = See_Comment [Aut omated message] 2823-3) The system [employer] generated this result transmitted ref erence range: 3.5 - 5. 4 MEQ/L. The refe rence range was not u sed to interpret this result as normal/abnor mal. CHLORIDE (test code = See_Comment [Auto mated message] 2075-0) The system [employer] generated this result transmitted ref erence range: 95 - 107 MEQ/L. The refe rence range was not u sed to interpret this result as normal/abnor mal. CO2 (test code = 1963-8) See_Comment [A utomated message] The system [employer] generated this result transmitted ref erence range: 19 - 31 MEQ/L. The reference r nanci was not used to interpret this result as normal/abnor mal. CALCIUM (test code = See_Comment Unless Otherwise 50053-9) Indicated, All Testing Perform ed At: Clinical Pathol ogy [facility], [address] [place] [address] Laborator y Director: Tani Vazquez M.D. CLIA Number [id number] [employer] N o. 70598-76 [Autom ated message] The sy stem which generated this result transmit kendrick reference range : 8.5 - 10.5 MG/DL. T he reference range was not used to int erpret this result as normal/abnormal . Lab Interpretation (test Abnormal code = 64218-1) [facility] [id number] 08:53:12 Test Item Value Reference Range Interpretation Comments URIC ACID (test code See_Comment Unless Otherwise = 2520094) Indicated, All Testing Performed At: [facility], [address] [place] [address] Laborator y Director: Tani rogers M.D. CLIA Number [id number] [employer] [place] o. 82212-12 [Automated mess age] The system which ge nerated this result transmit kendrick reference range : 2.7 - 6.1 MG/DL. The refe rence range was not used to interpret this result as normal/abnormal . [facility], FLUORO, NON-SPECIFIC, UP TO 1 [id number] 09:44:00Reason for exam:->cystoFINAL REPORT A fluoroscopic unit was utilized for a procedure performed in the operating room. No interpretation was requested. Please refer to the operative report regarding findings. Please refer to PACS for patient radiation dose information. Signed: JR Elizabeth, Alla Mast Verified Date/Time: 07/14/2019 09:44:15 Reading Location: [address] Neuro Reading Room BLOOD [id number] 11:00:00 Test Item Value Reference Range Interpretation Comments CULTURE (BEAKER) (test No growth in 5 days code = 1095) BLOOD [id number] 11:00:00 Test Item Value Reference Range Interpretation Comments CULTURE (BEAKER) (test No growth in 5 days code = 1095) URINE [id number] 11:07:00 Test Item Value Reference Range Interpretation Comments CULTURE (BEAKER) (test code = 1095) No growth ANG, NEPHROSTOMY, PERC, EXTERNAL [id number] 11:00:00Reason for exam:- >request left PCN for left obstructing stone, feversFINAL REPORT Procedure: Percutaneous nephrostomy catheter placement. History: Left ureteric calculus with obstruction, infection. Merchandise Appraiser: Bradford Matthew M.D. Electric Locomotive Crane Operator: Nargis mckeon M.D. Modality: Ultrasound and fluoroscopy. [...] sequential dilatation of the tract, an 8.5 Azeri nephrostomy catheter was placed, pigtail locked in the renal pelvis. Contrast injection confirmed satisfactory position of the nephrostomy catheter. The catheter was secured to skin with nonabsorbable suture and connected to a gravity drainage bag. An aseptic dressing was applied. The patient was transferred to the recovery area and discharged from the department in stable condition.Complications: None immediate. Findings:As above. Obstruction in the distal ureter was not seen. Thecalculus probably has passed on into the bladder. Impression:Successful ultrasound and fluoroscopicguided 8.5 Azeri nephrostomy catheter placement left kidney via a posterior inferior calyx as described above. Further management dictated by the clinical scenario. The nephrostomy catheter(s) should be exchanged at the latest in three months. Thank you for the opportunity to assist in the care of your patient. Signed: Bradford Matthew MDReport Verified Date/Time: 07/10/2019 11:00:12 Reading Location:[place] [address] Angio Body Reading Room BASIC METABOLIC [id number] 07:33:00 Test Item Value Reference Range Interpretation [...] 1092) DATA TO CALCULA TE ESTIMATED GFR. Bag Machine Tender ID - MONIE [id number] 07:25:00 Test Item Value Reference Range Interpretation Comments MAGNESIUM (BEAKER) (test code = 2.2 mg/dL 1.6-2.6 627) Bag Machine Tender ID - MONIE CHEPATIC FUNCTION [id number] 07:25:00 Test Item Value Reference Range Interpretation [...] (test code = 43 U/L 6-55 347) Bag Machine Tender ID - MONIE CCBC W/PLT COUNT & AUTO [id number] 06:54:00 Test Item Value Reference Range Interpretation [...] (BEAKER) (test code = 2801) BASIC METABOLIC [id number] 05:38:00 Test Item Value Reference Range Interpretation [...] 1092) DATA TO CALCULA TE ESTIMATED GFR. Bag Machine Tender ID - [id number] 05:24:00 Test Item Value Reference Range Interpretation Comments MAGNESIUM (BEAKER) (test code = 1.8 mg/dL 1.6-2.6 627) Bag Machine Tender ID - LAHEPATIC FUNCTION [id number] 05:24:00 Test Item Value Reference Range Interpretation [...] (test code = 36 U/L 6-55 347) Bag Machine Tender ID - LACBC W/PLT COUNT & AUTO [id number] 04:34:00 Test Item Value Reference Range Interpretation [...] (BEAKER) (test code = 2801) LACTIC ACID, [id number] 20:25:00 Test Item Value Reference Range Interpretation Comments LACTATE BLOOD VENOUS (2) (BEAKER) 0.69 mmol/L 0.50-2.20 (test code = 2872) Bag Machine Tender ID - LAVON, CHEST, 1 VIEW, NON [id number] 16:24:00Reason for exam:->feverShould this be performed at the bedside?->YesFINAL REPORT CLINICAL HISTORY: fever TECHNIQUE: 1 view of the chest. COMPARISON: None IMPRESSION: There is possible retrocardiac left lower lobe consolidation, for which clinical correlation for pneumonia is requested. There is blunting of the left costophrenic angle. The heart isnot enlarged. Signed: Rich Valentine MDReport Verified Date/Time: 07/08/2019 16:24:52 Reading Location: [address] Neuro Reading Room HEMOGLOBIN [id number] 13:56:00 Test Item Value Reference Range Interpretation Comments HEMOGLOBIN A1C (BEAKER) (test code = 6.1 % 4.3-6.1 368) URINALYSIS W/ REFLEX URINE [id number] 13:15:00 Test Item Value Reference Range Interpretation [...] = 516) SOURCE(BEAKER) (test code = 2795) Bag Machine Tender ID - [auto]Bag Machine Tender ID - techRESPIRATORY PANEL [id number] 12:14:00 Test Item Value Reference Range Interpretation [...] sample was tested at the [facility] using the [employer] FilmArray Respiratory Panel. It is FDA cleared and has been verified and approved by the [facility] for clinical use on nasopharyngeal swab specimens.The performance of the FilmArrayRP has not been established in individuals who received influenza vaccine. Recent administration of a nasal influenza vaccine may cause false positive results for Influenza A and/orInfluenza B.SARS-COV2/RT-PCR ([facility])2019-07-08 11:26:00 Test Item Value Reference Range Interpretation Comments SARS-COV2/RT-PCR (test Not Detected Not Detected, Negative code = 6676755) SARS-COV-[address] [facility] (test code = 5692717) Negative results do not preclude SARS-CoV-2 infection [...] of the Act.Fact Sheet for Healthcare Pro viders:https://www.MostLikely.com/Documents/Xpert%20Xpress%20SARS%20CoV-2/Fact%20Sh eets/302-3802%14KDJH-TGX-5%20HEALTHCARE%20PROVIDERS%20FACT%20SHEET.pdfFact Sheet for Healthcare Patients:https://www.CouponCabin.[employer] Grow (FIG)/Documents/Xpert%20Xpress%20SARS%20CoV-2/Fact%20Sheets/302-3801%20SARS-COV -2%20PATIENT%20FACT%20SHEET.pdfPerforming Laboratory:[facility], [place] [address]KKXWV METABOLIC [id number] 10:06:00 Test Item Value Reference Range Interpretation [...] 1092) DATA TO CALCULA TE ESTIMATED GFR. Bag Machine Tender ID - [id number] 10:05:00 Test Item Value Reference Range Interpretation Comments MAGNESIUM (BEAKER) (test code = 2.0 mg/dL 1.6-2.6 627) Bag Machine Tender ID - NTPHEPATIC FUNCTION [id number] 10:05:00 Test Item Value Reference Range Interpretation [...] (test code = 30 U/L 6-55 347) Bag Machine Tender ID - [id number] 09:53:00 Test Item Value Reference Range Interpretation [...] 2.5-3.5 for patients wiht mechanical heart valves.PROTHROMBIN TIME/[id number] 09:51:00 Test Item Value Reference Range Interpretation [...] for patients wiht mechanical heart valves.LACTIC ACID, [id number] 09:50:00 Test Item Value Reference Range Interpretation Comments LACTATE BLOOD VENOUS (2) (BEAKER) 2.87 mmol/L 0.50-2.20 H (test code = 2872) Bag Machine Tender ID - NTPCBC W/PLT COUNT & AUTO [id number] 09:41:00 Test Item Value Reference Range Interpretation [...] 417) IMMATURE GRANULOCYTES-RELATIVE 0 % 0-1 PERCENT (AJIT) (test code = 2801)
--- NOTE | 2021-10-19 13:52 | RAD REPORT ---
EXAM DESCRIPTION: CT - Head Brain Wo Cont - 10/19/2021 1:42 pm CLINICAL HISTORY: FALL HIT HEAD COMPARISON: Head Brain Wo Cont dated 10/10/2021; Head Brain Wo Cont dated 12/26/2017 TECHNIQUE: All CT scans are performed using dose optimization technique as appropriate and may inclu de automated exposure control or mA/KV adjustment according to patient size. FINDINGS: No intracranial hemorrhage, hydrocephalus or extra-axial fluid collection.No areas of brai n edema or evidence of midline shift. The paranasal sinuses and mastoids are clear. The calvarium is intact. IMPRESSION: No acute intracranial abnormality.
--- NOTE | 2021-10-19 14:43 | RAD REPORT ---
EXAM DESCRIPTION: RAD - Chest Single View - 10/19/2021 2:30 pm CLINICAL HISTORY: syncope COMPARISON: <Comparisons> FINDINGS: Lines: None. Lungs: No evidence of edema or pneumonia. Pleural: No significant pleural effusions or pneumothorax. Cardiac: The heart size is within normal limits. Mediastinum: Within normal limits. Bones: No acute fractures. Other: None IMPRESSION: No acute cardiopulmonary disease.
[2021-10-19 15:00] LABS: Absolute Lymphocytes (CBC) 2.6 K/uL (0.7-4.9); Hematocrit 37.1 % (36.0-45.0); Lymphocytes % 21.5 % (15.3-44.8); MCV 82.9 fL (80-100); MPV 7.8 fL (7.6-11.3); RBC Red Blood Cell Count 4.47 M/uL (3.86-4.86)
[2021-10-19 15:09] LABS: Protime INR 1.05
[2021-10-19 15:18] LABS: ALT/SGPT 28 U/L (12-78); AST/SGOT 19 U/L (15-37); Albumin 3.9 g/dL (3.4-5.0); Alkaline Phosphatase 87 U/L (45-117); BUN Blood Urea Nitrogen 16 mg/dL (7-18); Bicarbonate 29 mmol/L (21-32); Bilirubin Total 0.4 mg/dL (0.2-1.0); Glomerular Filtration Rate 85 ml/min (=/>90); Glucose Level 113 mg/dL (74-106); Potassium 4.5 mmol/L (3.5-5.1); Protein, Total 7.8 g/dL (6.4-8.2); Sodium Level 137 mmol/L (136-145)
[2021-10-19 15:27] LABS: Bilirubin Direct < 0.1 mg/dL (0-0.2)
[2021-10-19 15:32] LABS: SARS-CoV-2 Antigen Rapid Res Negative (Negative)
[2021-10-19] MEDS ORDERED: NA CHLORIDE 0.9% 500 ML ONE (15:41)
[2021-10-19 16:25] LABS: Urine Blood Negative (Negative); Urine Glucose Negative (Negative); Urine Protein Negative (Negative)
--- NOTE | 2021-10-19 17:03 | ER ---
Nurse's Notes [facility] Name: Erika Jacobson Age: 86 yrs Sex: Female : 1935 Arrival Date: 10/19/2021 Time: 13:01 Bed 7 Private MD: Diagnosis: Unspecified injury of head, initial encounter;Fall on same level, unspecified;Possible syncope Presentation: 10/19 13:26 Chief complaint: Patient states: My mother was standing up and cooking and she past out bm7 and lost consciousness. She fell and hit her head on the floor. She does not remember anything. Now she's falling asleep and not acting right. She said she is having severe pain in her head. Coronavirus screen: At this time, the client does not indicate any symptoms associated with coronavirus-19. Ebola Screen: No symptoms or risks identified at this time. Initial Sepsis Screen: Does the patient meet any 2 criteria? No. Patient's initial sepsis screen is negative. Does the patient have a suspected source of infection? No. Patient's initial sepsis screen is negative. Risk Assessment: Do you want to hurt yourself or someone else? Patient reports no desire to harm self or others. Onset of symptoms was October 19, 2021. 13:26 Method Of Arrival: Wheelchair bm7 13:26 Acuity: ISHAN 2 bm7 Triage Assessment: 13:29 General: Appears in no apparent distress. uncomfortable, well groomed, well developed, bm7 Behavior is calm, cooperative. Pain: Complains of pain in scalp Pain does not radiate. EENT: No deficits noted. No signs and/or symptoms were reported regarding the EENT system. Neuro: Level of Consciousness is awake, alert, Oriented to person, place, Assessment Clinician are equal bilaterally Reports blurred vision headache. Cardiovascular: No deficits noted. Respiratory: No deficits noted. GI: No deficits noted. No signs and/or symptoms were reported involving the gastrointestinal system. : No deficits noted. No signs and/or symptoms were reported regarding the genitourinary system. Derm: No deficits noted. No signs and/or symptoms reported regarding the dermatologic system. Musculoskeletal: No deficits noted. No signs and/or symptoms reported regarding the musculoskeletal system. Historical: - Home Meds: 13:23 losartan 100 mg Oral tab 1 tab once daily [Active]; Lasix Oral [Active]; aspirin 81 mg bm7 Oral chew 1 tab once daily [Active]; atorvastatin 40 mg Oral tab 1 tab once daily [Active]; carvedilol Oral [Active]; - PMHx: 13:23 CVA; Asthma; Hyperlipidemia; Hypertension; bm7 - PSHx: 13:23 choleycestectomy; kidney stones; bm7 - Immunization history:: Adult Immunizations up to date, Client reports receiving the 2nd dose of the Covid vaccine, Client reports receiving the 1st dose of the Covid vaccine. - Social history:: Smoking status: Patient denies any tobacco usage or history of. - Family history:: not pertinent. - Hospitalizations: : No recent hospitalization is reported. Screenin:30 Abuse screen: Denies threats or abuse. Denies injuries from another. Nutritional bp screening: No deficits noted. Tuberculosis screening: No symptoms or risk factors identified. Fall Risk None identified. Assessment: 13:30 General: SEE TRIAGE NOTE. bp Vital Signs: 13:26 BP 124 / 51; Pulse 60; Resp 16; Temp 97.0(TE); Pulse Ox 98% on R/A; Weight 58.97 kg bm7 (R); Height 5 ft. 3 in. (160.02 cm); Pain 10/10; 13:26 Body Mass Index 23.03 (58.97 kg, 160.02 cm) bm7 ED Course: 13:01 Patient arrived in ED. am2 13:28 Triage completed. bm7 13:29 Arm band placed on right wrist. bm7 13:30 Patient has correct armband on for positive identification. Bed in low position. Call bp light in reach. Side rails up X2. 13:32 Rogelio Menendez, RN is Primary Nurse. bp 13:37 Bryson Lafleur MD is Attending Physician. rn Administered Medications: 15:36 Drug: NS 0.9% 500 ml Route: IV; Rate: bolus; Site: right hand; iw Outcome: 17:03 Discharge ordered by . rn 17:37 Patient left the ED. iw Signatures: Quin Tapia RN RN Bryson Lafleur MD MD rn Moreno, Amanda am2 Rogelio Menendez RN RN bp McCarthy, Brittany, RN RN [facility]
--- NOTE | 2021-10-19 17:04 | EDPHYS ---
Physician Documentation [facility] Name: Erika Jacosbon Age: 86 yrs Sex: Female : 1935 Arrival Date: 10/19/2021 Time: 13:01 Bed 7 Private MD: ED Physician Bryson Lafleur HPI: 10/19 14:09 This 86 yrs old Female presents to ER via Wheelchair with complaints of Fall rn Injury. 14:09 Details of fall: The patient fell from a height. Onset: The symptoms/episode rn began/occurred just prior to arrival. Associated injuries: The patient sustained injury to the head. Severity of symptoms: At their worst the symptoms were mild, in the emergency department the symptoms have improved. The patient has experienced similar episodes in the past. The patient has not recently seen a physician. Pt reports fall from standing, ended up on floor, not sure if passed out. No fever. Denies recent illness. No chest pain/sob/abd pain/vomiting/diarrhea. Reports hit right/back of head when fell. Doesn't recall all events. Son states 3 falls in last year. . Historical: - Home Meds: 13:23 losartan 100 mg Oral tab 1 tab once daily [Active]; Lasix Oral [Active]; aspirin 81 mg bm7 Oral chew 1 tab once daily [Active]; atorvastatin 40 mg Oral tab 1 tab once daily [Active]; carvedilol Oral [Active]; - PMHx: 13:23 CVA; Asthma; Hyperlipidemia; Hypertension; bm7 - PSHx: 13:23 choleycestectomy; kidney stones; bm7 - Immunization history:: Adult Immunizations up to date, Client reports receiving the 2nd dose of the Covid vaccine, Client reports receiving the 1st dose of the Covid vaccine. - Social history:: Smoking status: Patient denies any tobacco usage or history of. - Family history:: not pertinent. - Hospitalizations: : No recent hospitalization is reported. ROS: 14:09 Constitutional: Negative for fever, chills, and weight loss, Eyes: Negative for injury, rn pain, redness, and discharge, Neck: Negative for injury, pain, and swelling, Cardiovascular: Negative for chest pain, palpitations, and edema, Respiratory: Negative for shortness of breath, cough, wheezing, and pleuritic chest pain, Abdomen/GI: Negative for abdominal pain, nausea, vomiting, diarrhea, and constipation, Back: Negative for injury and pain, MS/Extremity: Negative for injury and deformity, Skin: Negative for injury, rash, and discoloration, Neuro: Negative for weakness, numbness, tingling, and seizure. Exam: 14:09 Constitutional: This is a well developed, well nourished patient who is awake, alert, rn and in no acute distress. Head/Face: Normocephalic, atraumatic. Eyes: Pupils equal round and reactive to light, extra-ocular motions intact. Lids and lashes normal. Conjunctiva and sclera are non-icteric and not injected. Cornea within normal limits. Periorbital areas with no swelling, redness, or edema. Neck: No midline cervical tenderness Cardiovascular: Regular rate and rhythm. No pulse deficits. Respiratory: No increased work of breathing, no retractions or nasal flaring. Abdomen/GI: Soft, non-tender Skin: Warm, dry MS/ Extremity: Pulses equal, no cyanosis Neuro: Awake and alert, GCS 15, oriented to person, place, time, and situation. Cranial nerves II-XII grossly intact. Motor strength 5/5 in all extremities. Sensory grossly intact. Cerebellar exam normal. Normal gait. 16:24 ECG was reviewed by the Attending Physician. rn Vital Signs: 13:26 BP 124 / 51; Pulse 60; Resp 16; Temp 97.0(TE); Pulse Ox 98% on R/A; Weight 58.97 kg bm7 (R); Height 5 ft. 3 in. (160.02 cm); Pain 10/10; 13:26 Body Mass Index 23.03 (58.97 kg, 160.02 cm) bm7 MDM: 13:37 Patient medically screened. rn 16:55 Differential diagnosis: closed head injury, contusion, syncope, fall, head injury, rn dehydration, weakness, UTI. Data reviewed: vital signs, nurses notes, lab test result(s), EKG, radiologic studies, CT scan, and as a result, I will discharge patient. Counseling: I had a detailed discussion with the patient and/or guardian regarding: the historical points, exam findings, and any diagnostic results supporting the discharge/admit diagnosis, lab results, radiology results, the need for outpatient follow up, to return to the emergency department if symptoms worsen or persist or if there are any questions or concerns that arise at home. Response to treatment: the patient's symptoms have markedly improved after treatment, the patient's condition has returned to base line, the patient is now symptom free, and as a result, I will discharge patient. Special discussion: Based on the patient's history, exam and DX evaluation, there is no indication for emergent intervention or inpatient [place]. It is understood by the patient/guardian that if the SXs persist or worsen they need to return immediately for re-evaluation. I discussed with the patient/guardian in detail that at this point there is no indication for admission to the hospital. It is understood, however, that if the symptoms persist or worsen the patient needs to return immediately for re-evaluation. 17:04 ED course: Son states this has happened multiple times, even admitted and no clear rn cause for syncope or fall. Pt states wants to go home, feels better. . 10/19 13:52 Order name: SARS RAPID 10/19 15:02 Order name: CBC with Automated Diff; Complete Time: 15:56 EDVA 10/19 15:09 Order name: Protime (+INR); Complete Time: 15:56 EDVA 10/19 15:09 Order name: PTT, Activated Partial Thromb; Complete Time: 15:56 EDVA 10/19 15:27 Order name: Basic Metabolic Panel; Complete Time: 15:56 EDVA 10/19 15:27 Order name: Liver (Hepatic) Function; Complete Time: 15:56 EDVA 10/19 15:33 Order name: SARS-COV-2 Antigen Rapid; Complete Time: 15:56 EDVA 10/19 16:25 Order name: Urine Dipstick-Ancillary; Complete Time: 16:32 EDVA 10/19 13:52 Order name: EKG; Complete Time: 22:27 rn 10/19 13:52 Order name: Cardiac monitoring; Complete Time: 15:06 rn 10/19 13:52 Order name: EKG - Nurse/Tech; Complete Time: 15:06 rn 10/19 13:52 Order name: IV Saline Lock; Complete Time: 14:49 rn 10/19 13:52 Order name: Labs collected and sent; Complete Time: 14:49 rn 10/19 13:52 Order name: O2 Per Protocol; Complete Time: 14:49 rn 10/19 13:52 Order name: O2 Sat Monitoring; Complete Time: 14:49 rn 10/19 13:52 Order name: Urine Dipstick-Ancillary (obtain specimen); Complete Time: 16:36 rn 10/19 13:53 Order name: CT; Complete Time: 15:56 EDMS 10/19 14:45 Order name: RAD; Complete Time: 15:56 EDMS EC:24 Rate is 73 beats/min. Rhythm is regular. HI interval is normal. QRS interval is normal. rn QT interval is normal. No Q waves. T waves are Normal. No ST changes noted. Clinical impression: NSR w/ Non-specific ST/T Changes. Interpreted by me. Reviewed by me. Administered Medications: 15:36 Drug: NS 0.9% 500 ml Route: IV; Rate: bolus; Site: right hand; iw Disposition Summary: 10/19/21 17:03 Discharge Ordered Location: Home rn Problem: new rn Symptoms: have improved rn Condition: Stable rn Diagnosis - Unspecified injury of head, initial encounter rn - Fall on same level, unspecified rn - Possible syncope rn Followup: rn - With: Private Physician - When: As needed - Reason: Recheck today's complaints, Re-evaluation by your physician Discharge Instructions: - Discharge Summary Sheet rn - Head Injury, Adult rn - Fall Prevention in the Home, Adult rn - Syncope rn Forms: - Medication Reconciliation Form rn - Thank You Letter rn - Antibiotic internal medicine hospitalist - Prescription Opioid Use rn Signatures: Dispatcher [employer] Quin Walker RN RN iw Bryson Lafleur MD MD rn McCarthy, Brittany, RN RN bm7
[2021-10-19 19:39] VITALS: BP 124/51; TEMP 97; O2SAT 98
--- NOTE | 2021-10-20 12:49 | EKG ---
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
== END 2021-10-19 17:37 | disposition home or self-care (01) ==
LOC: ER 13:00
DX: S09.90XA Unspecified injury of head, initial encounter (principal); W18.30XA Fall on same level, unspecified, initial encounter; Z20.822 Contact with and (suspected) exposure to COVID-19; I10 Essential (primary) hypertension; Z79.82 Long term (current) use of aspirin; Z86.73 Personal history of transient ischemic attack (TIA), and cerebral infarction without residual deficits
CPT/HCPCS: 93005; 85025; 80048; 36415; 85610; 80076; 85730; 81003; 70450; 71045; 99282; 87811; J7040

== ENCOUNTER 2022-02-27 12:33 | Observation (INO) | payer OTHER ==
--- OUTSIDE RECORDS SUMMARY | 2022-02-27 12:44 | XMS REPORT | Continuity of Care Document ---
:1935 Author Organization [facility] t Address [address] [place] [address] Care Team Providers Name Role Phone Carmelita MURGUIA, Wu Primary Care Physician LILIANA LI Attending Clinician Unavailable RENY STEVENSON Attending Clinician Unavailable ANGELA CUNNINGHAM Attending Clinician Unavailable WHITNEY SILVESTRE Attending Clinician Unavailable Tamela Borja Attending Clinician Unknown, Attending Attending Clinician Unavailable TAMELA LUCIA Attending Clinician Unavailable Doctor Unassigned, [place] Attending Clinician Unavailable CHARY DONALD Attending Clinician Unavailable Chary Infante Attending Clinician DANIEL PÉREZ Attending Clinician Unavailable WON MATT Attending Clinician Unavailable WON MATT Attending Clinician Unavailable Won Matt MD Attending Clinician ITALIA PRESTON Attending Clinician Unavailable Keerthi Cuenca MD Attending Clinician Lab, Ang - Db Attending Clinician Unavailable Ree Mccartney MD Attending Clinician Only, Ang Db Test Attending Clinician Unavailable Tera Cuenca Attending Clinician TERA RICKS Attending Clinician Unavailable KALYN PARADA Attending Clinician Unavailable KEERTHI CUENCA Attending Clinician Unavailable Amaya Rodriguez Attending Clinician Gerardo Tee MD Attending Clinician Pamela Jain RN Attending Clinician Unavailable Joce MURGUIA, Austin Goyal Attending Clinician AUSTIN HOBSON Attending Clinician Unavailable JESSICA REIC Attending Clinician Unavailable AMAYA ARITA Attending Clinician Unavailable Jessica Alvarez Attending Clinician CECI LO K.H. Attending Clinician Unavailable Teresita MURGUIA, Ceci K.H. Attending Clinician Vaccine, Ang Db Cbc Fam Attending Clinician Unavailable Lab, Adc Fam Pob I Attending Clinician Unavailable Daniel Pérez MD Attending Clinician Provider, [facility] Attending Clinician Unavailable Mine Blair Attending Clinician MINE NO Attending Clinician Unavailable Ethan Scott DO Attending Clinician 1, Adc Lab Attending Clinician Unavailable Renata Thacker Attending Clinician Unavailable Mirella Villalobos Attending Clinician [phone] Shy Miller Attending Clinician Unavailable 2, Adc Lab Attending Clinician Unavailable LILIANA LI Admitting Clinician Unavailable WON MATT Admitting Clinician Unavailable AUSTIN HOBSON Admitting Clinician Unavailable ADRIANA HARTMANN Admitting Clinician Unavailable Payers Payer Name Policy Type Policy Number Effective Date Expiration Date S kim AARP/MEDICARE [id number] 2019 COMPLETE 00:00:00 [facility] [id number] 2019 [facility] 00:00:00 [facility]-MEDICAID - [id number] 2017 MEDICAID 00:00:00 [id number] [facility] [id number] [employer]/AARP [id number] 2019 MEDICARE 00:00:00 ADVANTAGE [place]ICA[place] [id number] 2017 [place] 00:00:00 MOZ[place] CI [id number] 2019 2020 [facility] - 00:00:00 00:00:00 [facility] MEDICARE MGD Health CARE Problems Condition Condition Condition Status Onset Resolution Last Treating Co mments Source Name Details Category Date Date Treatment Clinician Date Chronic Chronic Disease Active Univers diastolic diastolic 9-12 ity of heart heart 00:00: [place] failure failure 00 Medical Branch Obesity Obesity Disease Active Univers (BMI (BMI 5-28 ity of 30-39.9) 30-39.9) 00:00: [place] 00 Medical Branch Uses Uses Disease Active Univers Estonian as Estonian as 5-28 it y of primary primary 00:00: [place] spoken spoken 00 Medical language language Branch History of History of Disease Active Overview : Univers CVA CVA 5- Formattin ity of (cerebrova (cerebrova 00:00: g of this [place] scular scular 00 note Medical accident) accident) might be Br anch different from the original. 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 9-30 it y of hypothyroi hypothyroi [place] dis[place] dism 00 Medical Branch Memory Memory Disease Active Univers impairment impairment 9-25 it y of 00:00: [place] [facility] Hair loss Hair loss Disease Active Uni vers 9-25 ity of 00:00: Medical Branch COVID-19 COVID-19 Disease Active Unive rs virus virus 7-20 [place] of infection [place] GERD GERD Disease Active Univers (gastroeso (gastroeso 7-20 it y of phageal phageal 00:00: [place] reflux reflux 00 Medical disease) disease) Branch Neuropathy Neuropathy Disease Active U nivers of both of both 7-20 ity of feet feet 00:00: [place] [facility] Abdominal Abdominal Disease [facility] Sepsis Sepsis [facility] Center Hypertensi Hypertensi Disease Active [facility] Medical [facility] Center Ureteropel Ureteropel Disease Active 2019- [facility] bess[facility] bessie [facility] junction junction 00:00: Medica l (UPJ) (UPJ) 00 Center obstructio obstructio n, left n, left Bilateral Bilateral Disease Active 2018-02 Uni vers foot pain foot pain 1-26 ity of 00:00: 00 Medical Branch Kidney Kidney Disease Active 2017-02 Univers stone stone 0-15 ity of 00:00: [place] [facility] Abnormal Abnormal Disease Active 2017-02 Overview: Un briana liver liver 0-15 Formattin ity of ultrasound ultrasound 00:00: g of this 00 note Medical might be Branch different from the original. Likely hepatic steatosis with focal areas of fatty sparing Weakness Weakness Disease Active Unive rs 4-25 ity of 00:00: [place] [facility] 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 0-05 it y of 2 diabetes 2 diabetes [place] mellitus mellitus 00 Medica l Branch Essential Essential Disease Active 2016-02 Uni vers hypertensi hypertensi 0-02 it y of on on 00:00: [place] [address] Medical Branch HLD HLD Disease Active 2016-02 Univers (hyperlipi (hyperlipi 0-02 it y of demia) demia) 00:00: [place] [address] Medical Branch History of History of Disease Active 2016-02 U nivers chest pain chest pain 0-02 it y of 00:00: [place] [address] Medical Branch Palpitatio Palpitatio Disease Active 2016-02 U nivers ns ns 0-02 ity of 00:00: [place] [address] Medical Branch Osteoporos Osteoporos Disease Active U nivers is is ity of [facility] Abnormal Abnormal Disease Active Unive rs EKG EKG ity of [facility] Asthma Asthma Disease Active [facility] of Medicin e History of History of Disease [facility] stroke stroke [place] with with of residual residual Medici n left-sided left-sided e weakness weakness No known No known Disease [facility] active active [place] problems problems of Medicin e Allergies, Adverse Reactions, Alerts Allergy Allergy Status Severity Reaction(s) Onset Inactive Treating Comm ents Source Name Type Date Date Clinician NO KNOWN Allergy Active [facility] NO KNOWN Drug Active Univers ALLERGIE Class ity of [facility] Social History Social Habit Start Date Stop Date Quantity Comments Source History SDOH [facility] Alcohol Std Medical Cent[facility] r Drinks History SDOH [facility] Alcohol Binge Medical Marilyn ter History SDOH [facility] Alcohol Comment Medical C enter Exposure to 2022-02-15 2022-02-25 Not sure University of SARS-CoV-2 00:00:00 17:25:00 [facility] [place] [facility] (event) Branch Alcohol intake 2019-07-12 2019-07-[address] [facility] 00:00:00 00:00:00 non-drinker of Medical Ce nter alcohol (finding) History SDOH 2019-07-10 2019-07-[address] [facility] Alcohol Frequency 00:00:00 00:00:00 [facility] Tobacco use and 2019-07-09 2019-07-[address] [facility] k[facility] exposure 00:00:00 00:00:00 [facility] Sex Assigned At [address] [facility] 00:00[facility]00 [facility] Smoking Status Start Date Stop Date Source Never smoked tobacco [facility] Medications Ordered Filled Start Stop Current Ordering Indication Dosage Frequency Signature Comments Components Source Medication Medication Date Date Medication? Clinician (SIG) Name Name carvediloL 2021-02 Yes [id number] 6.25mg Take 1 Univers 6.25 mg 2-09 tablet by ity of tablet 00:00: mouth 2 (two) Medical times Branch daily with meals. atorvastati 2021-02 Yes [id number] 20mg Take 1 Univers n 20 mg 2-09 tablet by ity of tablet 00:00: mouth at [place] 00 bedtime. Medical Branch omeprazole 2021-02 Yes [id number] 1{tbl} Take 1 Univers 20 mg TbLD 2-09 tablet by ity of 00:00: mouth [place] 00 daily. Medical Branch tolterodine 2021-02 Yes [id number] 2mg Take 1 Univers LA 2 mg 24 2-09 capsule by ity of hr capsule 00:00: mouth [place] 00 daily. Medical Branch carvediloL 2021-02 Yes [id number] 6.25mg Take 1 Univers 6.25 mg 2-09 tablet by ity of tablet 00:00: mouth 2 (two) Medical times Branch daily with meals. atorvastati 2021-02 Yes [id number] 20mg Take 1 Univers n 20 mg 2-09 tablet by ity of tablet 00:00: mouth at [place] 00 bedtime. Medical Branch omeprazole 2021-02 Yes [id number] 1{tbl} Take 1 Univers 20 mg TbLD 2-09 tablet by ity of 00:00: mouth [place] 00 daily. Medical Branch tolterodine 2021-02 Yes [id number] 2mg Take 1 Univers LA 2 mg 24 2-09 capsule by ity of hr capsule 00:00: mouth [place] 00 daily. Medical Branch carvediloL 2021-02 Yes [id number] 6.25mg Take 1 Univers 6.25 mg 2-09 tablet by ity of tablet 00:00: mouth 2 (two) Medical times Branch daily with meals. atorvastati 2021-02 Yes [id number] 20mg Take 1 Univers n 20 mg 2-09 tablet by ity of tablet 00:00: mouth at [place] 00 bedtime. Medical Branch omeprazole 2021-02 Yes [id number] 1{tbl} Take 1 Univers 20 mg TbLD 2-09 tablet by ity of 00:00: mouth [place] 00 daily. Medical Branch tolterodine 2021-02 Yes [id number] 2mg Take 1 Univers LA 2 mg 24 2-09 capsule by ity of hr capsule 00:00: mouth [place] 00 daily. Medical Branch carvediloL 2021-02 Yes [id number] 6.25mg Take 1 Univers 6.25 mg 2-09 tablet by ity of tablet 00:00: mouth 2 00 (two) Medical times Branch daily with meals. atorvastati 2021-02 Yes [id number] 20mg Take 1 Univers n 20 mg 2-09 tablet by ity of tablet 00:00: mouth at [place] 00 bedtime. Medical Branch omeprazole 2021-02 Yes [id number] 1{tbl} Take 1 Univers 20 mg TbLD 2-09 tablet by ity of 00:00: mouth [place] 00 daily. Medical Branch tolterodine 2021-02 Yes [id number] 2mg Take 1 Univers LA 2 mg 24 2-09 capsule by ity of hr capsule 00:00: mouth [place] 00 daily. Medical Branch carvediloL 2021-02 Yes [id number] 12.5mg Take 1 Univers 12.5 mg 1-11 tablet by ity of tablet 00:00: mouth 2 [place] (two) Medical times Branch daily with meals. Additional refills per cardio carvediloL 2021-02 Yes [id number] 12.5mg Take 1 Univers 12.5 mg 1-11 tablet by ity of tablet 00:00: mouth 2 [place] (two) Medical times Branch daily with meals. Additional refills per cardio carvediloL 2021-02- No [id number] 12.5mg Take 1 Univers 12.5 mg 1-11 12-09 tablet by ity of tablet 00:00: 00:00 mouth 2 [place] 00 :00 (two) Medical times Branch daily with meals. Additional refills per cardio carvediloL 2021-02- No [id number] 12.5mg Take 1 Univers 12.5 mg 1-11 12-09 tablet by ity of tablet 00:00: 00:00 mouth 2 [place] 00 :00 (two) Medical times Branch daily with meals. Additional refills per cardio METFORMIN 2021-02 Yes Take 1 Univer s 500 mg 24 1-09 tablet by ity o f hr tablet 00:00: mouth [place] 00 daily with Medical breakfast Branch METFORMIN 2021-02 Yes Take 1 Univer s 500 mg 24 1-09 tablet by ity o f hr tablet 00:00: mouth once [place] 00 daily with Medical breakfast Branch METFORMIN 2021-02 Yes Take 1 Univer s 500 mg 24 1-09 tablet by ity o f hr tablet 00:00: mouth once [place] 00 daily with Medical breakfast Branch METFORMIN 2021-02 Yes Take 1 Univer s 500 mg 24 1-09 tablet by ity o f hr tablet 00:00: mouth once [place] 00 daily with Medical breakfast Branch METFORMIN 2021-02 Yes Take 1 Univer s 500 mg 24 1-09 tablet by ity o f hr tablet 00:00: mouth once [place] 00 daily with Medical breakfast Branch METFORMIN 2021-02 Yes Take 1 Univer s 500 mg 24 1-09 tablet by ity o f hr tablet 00:00: mouth once [place] 00 daily with Medical breakfast Branch METFORMIN 2021-02 Yes Take 1 Univer s 500 mg 24 1-09 tablet by ity o f hr tablet 00:00: mouth once [place] 00 daily with Medical breakfast Branch METFORMIN 2021-02 Yes Take 1 Univer s 500 mg 24 1-09 tablet by ity o f hr tablet 00:00: mouth [place] 00 daily with Medical breakfast Branch spironolact 2021-02- No 25mg Take 25 mg Univers one 25 mg 0-21 10-21 by mouth ity o f tablet 14:33: 00:00 daily. [place] 53 :00 Medical Branch spironolact 2021-02- No 25mg Take 25 mg Univers one 25 mg 0-21 10-21 by mouth ity o f tablet 14:33: 00:00 daily. [place] 53 :00 Medical Branch benzonatate 2021-02 Yes [id number] 200mg Take 1 Univers 200 mg 0-21 capsule by ity of capsule 00:00: mouth 3 [place] 00 (three) Medical times Branch daily as needed for Cough. atorvastati 2021-02 Yes [id number] 40mg Take 1 Univers n 40 mg 0-21 tablet by ity of tablet 00:00: mouth at [place] 00 bedtime. Medical Branch losartan 25 2021-02 Yes [id number] 25mg Take 1 Univers mg tablet 0-21 tablet by ity o f 00:00: mouth at [place] 00 bedtime. Medical Branch furosemide 2021-02 Yes [id number] 20mg Take 1 U nivers 20 mg 0-21 tablet by ity of tablet 00:00: mouth [place] 00 daily. Medical Branch spironolact 2021-02 Yes [id number] 25mg Take 1 Univers one 25 mg 0-21 tablet by ity o f tablet 00:00: mouth [place] 00 daily. Medical Branch benzonatate 2021-02 Yes [id number] 200mg Take 1 Univers 200 mg 0-21 capsule by ity of capsule 00:00: mouth 3 [place] 00 (three) Medical times Branch daily as needed for Cough. atorvastati 2021-02 Yes [id number] 40mg Take 1 Univers n 40 mg 0-21 tablet by ity of tablet 00:00: mouth at [place] 00 bedtime. Medical Branch losartan 25 2021-02 Yes [id number] 25mg Take 1 Univers mg tablet 0-21 tablet by ity o f 00:00: mouth at [place] 00 bedtime. Medical Branch furosemide 2021-02 Yes [id number] 20mg Take 1 U nivers 20 mg 0-21 tablet by ity of tablet 00:00: mouth [place] 00 daily. Medical Branch spironolact 2021-02 Yes [id number] 25mg Take 1 Univers one 25 mg 0-21 tablet by ity o f tablet 00:00: mouth [place] 00 daily. Medical Branch benzonatate 2021-02 Yes [id number] 200mg Take 1 Univers 200 mg 0-21 capsule by ity of capsule 00:00: mouth 3 [place] 00 (three) Medical times Branch daily as needed for Cough. atorvastati 2021-02 Yes [id number] 40mg Take 1 Univers n 40 mg 0-21 tablet by ity of tablet 00:00: mouth at [place] 00 bedtime. Medical Branch losartan 25 2021-02 Yes [id number] 25mg Take 1 Univers mg tablet 0-21 tablet by ity o f 00:00: mouth at [place] 00 bedtime. Medical Branch furosemide 2021-02 Yes [id number] 20mg Take 1 U nivers 20 mg 0-21 tablet by ity of tablet 00:00: mouth [place] 00 daily. Medical Branch spironolact 2021-02 Yes [id number] 25mg Take 1 Univers one 25 mg 0-21 tablet by ity o f tablet 00:00: mouth [place] 00 daily. Medical Branch benzonatate 2021-02 Yes [id number] 200mg Take 1 Univers 200 mg 0-21 capsule by ity of capsule 00:00: mouth 3 [place] 00 (three) Medical times Branch daily as needed for Cough. atorvastati 2021-02 Yes [id number] 40mg Take 1 Univers n 40 mg 0-21 tablet by ity of tablet 00:00: mouth at [place] 00 bedtime. Medical Branch losartan 25 2021-02 Yes [id number] 25mg Take 1 Univers mg tablet 0-21 tablet by ity o f 00:00: mouth at [place] 00 bedtime. Medical Branch furosemide 2021-02 Yes [id number] 20mg Take 1 U nivers 20 mg 0-21 tablet by ity of tablet 00:00: mouth [place] 00 daily. Medical Branch spironolact 2021-02 Yes [id number] 25mg Take 1 Univers one 25 mg 0-21 tablet by ity o f tablet 00:00: mouth [place] 00 daily. Medical Branch benzonatate 2021-02 Yes [id number] 200mg Take 1 Univers 200 mg 0-21 capsule by ity of capsule 00:00: mouth 3 [place] 00 (three) Medical times Branch daily as needed for Cough. atorvastati 2021-02 Yes [id number] 40mg Take 1 Univers n 40 mg 0-21 tablet by ity of tablet 00:00: mouth at [place] 00 bedtime. Medical Branch losartan 25 2021-02 Yes [id number] 25mg Take 1 Univers mg tablet 0-21 tablet by ity o f 00:00: mouth at [place] 00 bedtime. Medical Branch furosemide 2021-02 Yes [id number] 20mg Take 1 U nivers 20 mg 0-21 tablet by ity of tablet 00:00: mouth [place] 00 daily. Medical Branch spironolact 2021-02 Yes [id number] 25mg Take 1 Univers one 25 mg 0-21 tablet by ity o f tablet 00:00: mouth [place] 00 daily. Medical Branch benzonatate 2021-02 Yes [id number] 200mg Take 1 Univers 200 mg 0-21 capsule by ity of capsule 00:00: mouth 3 [place] 00 (three) Medical times Branch daily as needed for Cough. atorvastati 2021-02 Yes [id number] 40mg Take 1 Univers n 40 mg 0-21 tablet by ity of tablet 00:00: mouth at [place] 00 bedtime. Medical Branch losartan 25 2021-02 Yes [id number] 25mg Take 1 Univers mg tablet 0-21 tablet by ity o f 00:00: mouth at [place] 00 bedtime. Medical Branch furosemide 2021-02 Yes [id number] 20mg Take 1 U nivers 20 mg 0-21 tablet by ity of tablet 00:00: mouth [place] 00 daily. Medical Branch spironolact 2021-02 Yes [id number] 25mg Take 1 Univers one 25 mg 0-21 tablet by ity o f tablet 00:00: mouth [place] 00 daily. Medical Branch losartan 25 2021-02 Yes [id number] 25mg Take 1 Univers mg tablet 0-21 tablet by ity o f 00:00: mouth at [place] 00 bedtime. Medical Branch furosemide 2021-02 Yes [id number] 20mg Take 1 U nivers 20 mg 0-21 tablet by ity of tablet 00:00: mouth [place] 00 daily. Medical Branch spironolact 2021-02 Yes [id number] 25mg Take 1 Univers one 25 mg 0-21 tablet by ity o f tablet 00:00: mouth [place] 00 daily. Medical Branch losartan 25 2021-02 Yes [id number] 25mg Take 1 Univers mg tablet 0-21 tablet by ity o f 00:00: mouth at [place] 00 bedtime. Medical Branch furosemide 2021-02 Yes [id number] 20mg Take 1 U nivers 20 mg 0-21 tablet by ity of tablet 00:00: mouth [place] 00 daily. Medical Branch spironolact 2021-02 Yes [id number] 25mg Take 1 Univers one 25 mg 0-21 tablet by ity o f tablet 00:00: mouth [place] 00 daily. Medical Branch losartan 25 2021-02 Yes [id number] 25mg Take 1 Univers mg tablet 0-21 tablet by ity o f 00:00: mouth at [place] 00 bedtime. Medical Branch furosemide 2021-02 Yes [id number] 20mg Take 1 U nivers 20 mg 0-21 tablet by ity of tablet 00:00: mouth [place] 00 daily. Medical Branch spironolact 2021-02 Yes [id number] 25mg Take 1 Univers one 25 mg 0-21 tablet by ity o f tablet 00:00: mouth [place] 00 daily. Medical Branch losartan 25 2021-02 Yes [id number] 25mg Take 1 Univers mg tablet 0-21 tablet by ity o f 00:00: mouth at [place] 00 bedtime. Medical Branch furosemide 2021-02 Yes [id number] 20mg Take 1 U nivers 20 mg 0-21 tablet by ity of tablet 00:00: mouth [place] 00 daily. Medical Branch spironolact 2021-02 Yes [id number] 25mg Take 1 Univers one 25 mg 0-21 tablet by ity o f tablet 00:00: mouth [place] 00 daily. Medical Branch benzonatate 2021-02- No [id number] 200mg Take 1 Univers 200 mg 0-21 12-09 capsule by ity of capsule 00:00: 00:00 mouth 3 [place] 00 :00 (three) Medical times [place] daily as needed for Cough. atorvastati 2021-02- No [id number] 40mg Take 1 Univers n 40 mg 0-21 12-09 tablet by ity of tablet 00:00: 00:00 mouth at [place] 00 :00 bedtime. Medical Branch benzonatate 2021-02- No [id number] 200mg Take 1 Univers 200 mg 0-21 12-09 capsule by ity of capsule 00:00: 00:00 mouth 3 [place] 00 :00 (three) Medical times [place] daily as needed for Cough. atorvastati 2021-02- No [id number] 40mg Take 1 Univers n 40 mg 0-21 12-09 tablet by ity of tablet 00:00: 00:00 mouth at [place] 00 :00 bedtime. Medical Branch Albuterol 2021- No 4{puff} Inhale 4 Art Sulfate 9-30 09-30 Puffs by [place] (VENTOLIN 15:42: 00:00 mouth two of HFA) 108 52 :00 times Medicin (90 Base) daily. e MCG/ACT AERS carvedilol Yes 12.5mg Take 12.5 [facility] (COREG) 9-30 mg by [place] 12.5 MG 14:53: mouth of tablet 41 daily. Medicin e carvedilol Yes 12.5mg Take 12.5 Art (COREG) 9-30 mg by [place] 12.5 MG 14:53: mouth of tablet 41 daily. Medicin e Albuterol Yes [id number] 4{puff} Inhale 4 [facility] Sulfate 9-30 Puffs by [place] (VENTOLIN 00:00: mouth two of HFA) 108 00 times Medicin (90 Base) daily. e MCG/ACT AERS Fluticasone Yes [id number] 1{puff} Inhale 1 Art -Salmeterol 9-30 Puff by Shanda weber (ADVAIR) 00:00: mouth of 250-50 00 every 12 Medicin MCG/ACT hours. e inhaler albuterol Yes [id number] 2.5mg Take 1 [facility] (PROVENTIL) 9-30 Ampule by Col lege (2.5 mg/3 00:00: nebulizati of mL) 0.083% 00 on every 4 Med icin nebulizer hours as e solution needed for Wheezing. Diclofenac Yes [id number] 5g Apply 5 g Art Sodium 1 % 9-30 topically Kristine ege GEL 00:00: every 6 of 00 hours as Medicin needed for e Pain. Melatonin 2021- No Take by [facility] or 10 MG TABS 11-01 mouth. Paul dias 10:19: 00:00 of 25 :00 Medicin e Magnesium 2021- No Take by [facility] or 100 MG CAPS 11-01 mouth. Shanda weber 10:19: 00:00 of 22 :00 Medicin e losartan 50 Yes [id number] 25mg Take 0.5 Univers mg tablet 9-12 tablets by ity of 00:00: mouth [place] 00 every Medical evening. Branch losartan 50 Yes [id number] 25mg Take 0.5 Univers mg tablet 9-12 tablets by ity of 00:00: mouth [place] 00 every Medical evening. Branch losartan 50 0 Yes [id number] 25mg Take 0.5 Univers mg tablet 9-12 tablets by ity of 00:00: mouth [place] 00 every Medical evening. Branch losartan 50 0 Yes [id number] 25mg Take 0.5 Univers mg tablet 9-12 tablets by ity of 00:00: mouth [place] 00 every Medical evening. Branch losartan 50 2022-0 Yes [id number] 25mg Take 0.5 Univers mg tablet 9-12 tablets by ity of 00:00: mouth [place] 00 every Medical evening. Branch losartan 50 0 Yes [id number] 25mg Take 0.5 Univers mg tablet 9-12 tablets by ity of 00:00: mouth [place] 00 every Medical evening. Branch losartan 50 0 Yes [id number] 25mg Take 0.5 Univers mg tablet 9-12 tablets by ity of 00:00: mouth [place] 00 every Medical evening. Branch losartan 50 0 Yes [id number] 25mg Take 0.5 Univers mg tablet 9-12 tablets by ity of 00:00: mouth [place] 00 every Medical evening. Branch losartan 50 0 Yes [id number] 25mg Take 0.5 Univers mg tablet 9-12 tablets by ity of 00:00: mouth [place] 00 every Medical evening. Branch losartan 50 0 Yes [id number] 25mg Take 0.5 Univers mg tablet 9-12 tablets by ity of 00:00: mouth [place] 00 every Medical evening. Branch losartan 50 0 Yes [id number] 25mg Take 0.5 Univers mg tablet 9-12 tablets by ity of 00:00: mouth [place] 00 every Medical evening. Branch losartan 50 0 Yes [id number] 25mg Take 0.5 Univers mg tablet 9-12 tablets by ity of 00:00: mouth [place] 00 every Medical evening. Branch losartan 50 0 Yes [id number] 25mg Take 0.5 Univers mg tablet 9-12 tablets by ity of 00:00: mouth [place] 00 every Medical evening. Branch losartan 50 0 2021- No [id number] 25mg Take 0.5 Univers mg tablet 9-12 10-21 tablets by ity of 00:00: 00:00 mouth [place] 00 :00 every Medical evening. Branch losartan 50 2021-0 2021- No [id number] 25mg Take 0.5 Univers mg tablet 9-12 10-21 tablets by ity of 00:00: 00:00 mouth [place] 00 :00 every Medical evening. Branch furosemide 0 Yes 40mg Take 40 mg [facility] (LASIX) 40 8-28 by mouth Colle ge MG tablet 00:00: daily. of 00 Medicin e spironolact 2022-0 Yes 25mg Take 25 mg Art one 8-28 by mouth College (ALDACTONE) 00:00: daily. of 25 MG 00 Medicin tablet e furosemide 2021-0 Yes 40mg Take 40 mg [facility] (LASIX) 40 8-28 by mouth Colle ge MG tablet 00:00: daily. of 00 Medicin e spironolact 2021-0 Yes 25mg Take 25 mg Art one 8-28 by mouth [place] (ALDACTONE) 00:00: daily. of 25 MG 00 Medicin tablet e metFORMIN 2021-0 Yes 500mg Take 1 Unive rs 500 mg 24 7-29 tablet by ity o f hr tablet 00:00: mouth [place] 00 daily with Medical breakfast. Branch metFORMIN 2021-0 Yes 500mg Take 1 Unive rs 500 mg 24 7-29 tablet by ity o f hr tablet 00:00: mouth [place] 00 daily with Medical breakfast. Branch metFORMIN 2021-0 Yes 500mg Take 1 Unive rs 500 mg 24 7-29 tablet by ity o f hr tablet 00:00: mouth [place] 00 daily with Medical breakfast. Branch metFORMIN 2021-0 Yes 500mg Take 1 Unive rs 500 mg 24 7-29 tablet by ity o f hr tablet 00:00: mouth [place] 00 daily with Medical breakfast. Branch metFORMIN 2021-0 Yes 500mg Take 1 [facility] 500 mg 24 7-29 tablet by [facility] o f hr tablet 00:00: mouth [place] 00 daily with Medical breakfast. Branch metFORMIN 2021-0 Yes 500mg Take 1 [facility] 500 mg 24 7-29 tablet by ity o f hr tablet 00:00: mouth [place] 00 daily with Medical breakfast. Branch metFORMIN 2021-0 Yes 500mg Take 1 [facility] 500 mg 24 7-29 tablet by ity o f hr tablet 00:00: mouth [place] 00 daily with Medical breakfast. Branch metFORMIN 2-0 Yes 500mg Take 1 [facility] 500 mg 24 7-29 tablet by ity o f hr tablet 00:00: mouth [place] 00 daily with Medical breakfast. Branch metFORMIN 2-0 Yes 500mg Take 1 [facility] 500 mg 24 7-29 tablet by ity o f hr tablet 00:00: mouth [place] 00 daily with Medical breakfast. Branch metFORMIN 2-0 Yes 500mg Take 1 [facility] 500 mg 24 7-29 tablet by ity o f hr tablet 00:00: mouth [place] 00 daily with Medical breakfast. Branch metFORMIN 2021-0 Yes 500mg Take 1 [facility] 500 mg 24 7-29 tablet by ity o f hr tablet 00:00: mouth [place] 00 daily with Medical breakfast. Branch metFORMIN 2021-0 Yes 500mg Take 1 [facility] 500 mg 24 7-29 tablet by ity o f hr tablet 00:00: mouth [place] 00 daily with Medical breakfast. Branch metFORMIN 2021-0 Yes 500mg Take 1 [facility] 500 mg 24 7-29 tablet by ity o f hr tablet 00:00: mouth [place] 00 daily with Medical breakfast. Branch metFORMIN 2021-0 Yes 500mg Take 1 [facility] 500 mg 24 7-29 tablet by ity o f hr tablet 00:00: mouth [place] 00 daily with Medical breakfast. Branch metFORMIN 2021-0 Yes 500mg Take 1 [facility] 500 mg 24 7-29 tablet by ity o f hr tablet 00:00: mouth [place] 00 daily with Medical breakfast. Branch metFORMIN 2021-0 2022- No 500mg Take 1 [facility] 500 mg 24 7-29 - tablet by ity of hr tablet 00:00: 00:00 mouth [place] 00 :00 daily with Medical breakfast. Branch losartan 50 2021-0 2022- No [id number] 50mg Take 1 [facility] mg tablet 08-2712 tablet by ity of 00:00: 00:00 mouth [place] 00 :00 daily. Medical Branch Magnesium 2021-0 Yes Take by [facility] 100 MG CAPS 3-21 mouth. Shanda e 10:29: Medicin e Melatonin 2021-0 Yes Take by [facility] 10 MG TABS 3-21 mouth. Maria Guadalupe 10:29: Medicin e furosemide 2021-0 Yes 40mg Take 1 [facility] 40 mg 3-17 tablet by ity of tablet 00:00: mouth [place] 00 daily. Medical Branch furosemide 2021-0 Yes 40mg Take 1 [facility] 40 mg 3-17 tablet by ity of tablet 00:00: mouth [place] 00 daily. Medical Branch furosemide 2021-0 Yes 40mg Take 1 [facility] 40 mg 3-17 tablet by ity of tablet 00:00: mouth [place] 00 daily. Medical Branch furosemide 2021-0 Yes 40mg Take 1 [facility] 40 mg 3-17 tablet by ity of tablet 00:00: mouth [place] 00 daily. Medical Branch furosemide 2022-0 Yes 40mg Take 1 [facility] 40 mg 3-17 tablet by ity of tablet 00:00: mouth [place] 00 daily. Medical Branch furosemide 2022-0 Yes 40mg Take 1 [facility] 40 mg 3-17 tablet by ity of tablet 00:00: mouth [place] 00 daily. Medical Branch furosemide 2022-0 Yes 40mg Take 1 [facility] 40 mg 3-17 tablet by ity of tablet 00:00: mouth [place] 00 daily. Medical Branch furosemide 2022-0 Yes 40mg Take 1 [facility] 40 mg 3-17 tablet by ity of tablet 00:00: mouth [place] 00 daily. Medical Branch furosemide 2022-0 Yes 40mg Take 1 [facility] 40 mg 3-17 tablet by ity of tablet 00:00: mouth [place] 00 daily. Medical Branch furosemide 2022-0 Yes 40mg Take 1 [facility] 40 mg 3-17 tablet by ity of tablet 00:00: mouth [place] 00 daily. Medical Branch furosemide 2022-0 Yes 40mg Take 1 [facility] 40 mg 3-17 tablet by ity of tablet 00:00: mouth [place] 00 daily. Medical Branch furosemide 2022-0 Yes 40mg Take 1 [facility] 40 mg 3-17 tablet by ity of tablet 00:00: mouth [place] 00 daily. Medical Branch furosemide 2022-0 Yes 40mg Take 1 [facility] 40 mg 3-17 tablet by ity of tablet 00:00: mouth [place] 00 daily. Medical Branch furosemide 2022-0 Yes 40mg Take 1 [facility] 40 mg 3-17 tablet by ity of tablet 00:00: mouth [place] 00 daily. Medical Branch furosemide 2022-0 2022- No 40mg Take 1 [facility] ers 40 mg 3-17 10-21 tablet by ity of tablet 00:00: 00:00 mouth [place] 00 :00 daily. Medical Branch furosemide 2022-0 2022- No 40mg Take 1 [facility] ers 40 mg 3-17 10-21 tablet by ity of tablet 00:00: 00:00 mouth [place] 00 :00 daily. Medical Branch ATORVASTATI 2020-1 Yes [id number] 40mg TAKE 1 [facility] N 40 mg 2-13 TABLET BY ity of tablet 00:00: MOUTH AT [place] 00 BEDTIME Medical Branch ATORVASTATI 2020-02 Yes [id number] 40mg TAKE 1 [facility] N 40 mg 2-13 TABLET BY ity of tablet 00:00: MOUTH AT [address] 2020-02 Yes [id number] 40mg TAKE 1 [facility] N 40 mg 2-13 TABLET BY ity of tablet 00:00: MOUTH AT [address] 2020-02 Yes [id number] 40mg TAKE 1 [facility] N 40 mg 2-13 TABLET BY ity of tablet 00:00: MOUTH AT [address] 2020-02 Yes [id number] 40mg TAKE 1 [facility] N 40 mg 2-13 TABLET BY ity of tablet 00:00: MOUTH AT [address] 2020-02 Yes [id number] 40mg TAKE 1 [facility] N 40 mg 2-13 TABLET BY ity of tablet 00:00: MOUTH AT [address] 2020-02 Yes [id number] 40mg TAKE 1 [facility] N 40 mg 2-13 TABLET BY ity of tablet 00:00: MOUTH AT [address] 2020-02 Yes [id number] 40mg TAKE 1 [facility] N 40 mg 2-13 TABLET BY ity of tablet 00:00: MOUTH AT [address] 2020-02 Yes [id number] 40mg TAKE 1 [facility] N 40 mg 2-13 TABLET BY ity of tablet 00:00: MOUTH AT [address] 2020-02 Yes [id number] 40mg TAKE 1 [facility] N 40 mg 2-13 TABLET BY ity of tablet 00:00: MOUTH AT [address] 2020-02 Yes [id number] 40mg TAKE 1 [facility] N 40 mg 2-13 TABLET BY ity of tablet 00:00: MOUTH AT [address] 2020-02 Yes [id number] 40mg TAKE 1 [facility] N 40 mg 2-13 TABLET BY ity of tablet 00:00: MOUTH AT [address] 2020-02 Yes [id number] 40mg TAKE 1 [facility] N 40 mg 2-13 TABLET BY ity of tablet 00:00: MOUTH AT [address] 2020-02 Yes [id number] 40mg TAKE 1 [facility] N 40 mg 2-13 TABLET BY ity of tablet 00:00: MOUTH AT [place] 00 BEDTIME Medical Branch ATORVASTATI 2020-02- No [id number] 40mg TAKE 1 [facility] N 40 mg 2-13 10-21 TABLET BY ity of tablet 00:00: 00:00 MOUTH AT [place] 00 :00 BEDTIME Medical Branch ATORVASTATI 2020-02- No [id number] 40mg TAKE 1 [facility] N 40 mg 2-13 10-21 TABLET BY ity of tablet 00:00: 00:00 MOUTH AT [place] 00 :00 BEDTIME [facility] Branch azelastine 2020-02 Yes [id number] 1{spray Use 1 [facility] 137 mcg 2-02 } Bulger in ity of (0.1 %) 00:00: each [place] nasal spray 00 nostril 2 Med ical (two) Branch times daily. Use in each nostril as directed fluticasone 2020-02 Yes [id number] 2{puff} Inhale 2 [facility] propionate 2-02 Puffs 2 ity of (FLOVENT 00:00: (two) [place] HFA) 44 00 times Medical mcg/actuati daily. Branch on inhaler Rinse mouth after each use. azelastine 2020-02 Yes [id number] 1{spray Use 1 [facility] 137 mcg 2-02 } Bulger in ity of (0.1 %) 00:00: each [place] nasal spray 00 nostril 2 Med ical (two) Branch times daily. Use in each nostril as directed fluticasone 2020-02 Yes [id number] 2{puff} Inhale 2 [facility] propionate 2-02 Puffs 2 ity of (FLOVENT 00:00: (two) [place] HFA) 44 00 times Medical mcg/actuati daily. Branch on inhaler Rinse mouth after each use. azelastine 2020-02 Yes [id number] 1{spray Use 1 [facility] 137 mcg 2-02 } [place]ger in ity of (0.1 %) 00:00: each [place] nasal spray 00 nostril 2 Med ical (two) Branch times daily. Use in each nostril as directed fluticasone 2020-02 Yes [id number] 2{puff} Inhale 2 [facility] propionate 2-02 Puffs 2 ity of (FLOVENT 00:00: (two) [place] HFA) 44 00 times Medical mcg/actuati daily. Branch on inhaler Rinse mouth after each use. azelastine 2020-02 Yes [id number] 1{spray Use 1 [facility] 137 mcg 2-02 } [place] in ity of (0.1 %) 00:00: each [place] nasal spray 00 nostril 2 Med ical (two) Branch times daily. Use in each nostril as directed fluticasone 2020-02 Yes [id number] 2{puff} Inhale 2 [facility] propionate 2-02 Puffs 2 ity of (FLOVENT 00:00: (two) [place] HFA) 44 00 times Medical mcg/actuati daily. Branch on inhaler Rinse mouth after each use. azelastine 2020-02 Yes [id number] 1{spray Use 1 [facility] 137 mcg 2-02 } Bulger in ity of (0.1 %) 00:00: each [place] nasal spray 00 nostril 2 Med ical (two) Branch times daily. Use in each nostril as directed fluticasone 2020-02 Yes [id number] 2{puff} Inhale 2 [facility] propionate 2-02 Puffs 2 ity of (FLOVENT 00:00: (two) [place] HFA) 44 00 times Medical mcg/actuati daily. Branch on inhaler Rinse mouth after each use. azelastine 2020-02 Yes [id number] 1{spray Use 1 [facility] 137 mcg 2-02 } Bulger in ity of (0.1 %) 00:00: each [place] nasal spray 00 nostril 2 Med ical (two) Branch times daily. Use in each nostril as directed fluticasone 2020-02 Yes [id number] 2{puff} Inhale 2 [facility] propionate 2-02 Puffs 2 ity of (FLOVENT 00:00: (two) [place] HFA) 44 00 times Medical mcg/actuati daily. Branch on inhaler Rinse mouth after each use. azelastine 2020-02 Yes [id number] 1{spray Use 1 [facility] 137 mcg 2-02 } Bulger in ity of (0.1 %) 00:00: each [place] nasal spray 00 nostril 2 Med ical (two) Branch times daily. Use in each nostril as directed fluticasone 2020-02 Yes [id number] 2{puff} Inhale 2 [facility] propionate 2-02 Puffs 2 ity of (FLOVENT 00:00: (two) [place] HFA) 44 00 times Medical mcg/actuati daily. Branch on inhaler Rinse mouth after each use. azelastine 2020-02 Yes [id number] 1{spray Use 1 [facility] 137 mcg 2-02 } Bulger in ity of (0.1 %) 00:00: each [place] nasal spray 00 nostril 2 Med ical (two) Branch times daily. Use in each nostril as directed fluticasone 2020-02 Yes [id number] 2{puff} Inhale 2 [facility] propionate 2-02 Puffs 2 ity of (FLOVENT 00:00: (two) [place] HFA) 44 00 times Medical mcg/actuati daily. Branch on inhaler Rinse mouth after each use. azelastine 2020-02 Yes [id number] 1{spray Use 1 [facility] 137 mcg 2-02 } Bulger in ity of (0.1 %) 00:00: each [place] nasal spray 00 nostril 2 Med ical (two) Branch times daily. Use in each nostril as directed fluticasone 2020-02 Yes [id number] 2{puff} Inhale 2 [facility] propionate 2-02 Puffs 2 ity of (FLOVENT 00:00: (two) [place] HFA) 44 00 times Medical mcg/actuati daily. Branch on inhaler Rinse mouth after each use. azelastine 2020-02 Yes [id number] 1{spray Use 1 [facility] 137 mcg 2-02 } Bulger in ity of (0.1 %) 00:00: each [place] nasal spray 00 nostril 2 Med ical (two) Branch times daily. Use in each nostril as directed fluticasone 2020-02 Yes [id number] 2{puff} Inhale 2 [facility] propionate 2-02 Puffs 2 ity of (FLOVENT 00:00: (two) [place] HFA) 44 00 times Medical mcg/actuati daily. Branch on inhaler Rinse mouth after each use. azelastine 2020-02 Yes [id number] 1{spray Use 1 [facility] 137 mcg 2-02 } Bulger in ity of (0.1 %) 00:00: each [place] nasal spray 00 nostril 2 Med ical (two) Branch times daily. Use in each nostril as directed fluticasone 2020-02 Yes [id number] 2{puff} Inhale 2 [facility] propionate 2-02 Puffs 2 ity of (FLOVENT 00:00: (two) [place] HFA) 44 00 times Medical mcg/actuati daily. Branch on inhaler Rinse mouth after each use. azelastine 2020-02 Yes [id number] 1{spray Use 1 [facility] 137 mcg 2-02 } Bulger in ity of (0.1 %) 00:00: each [place] nasal spray 00 nostril 2 Med ical (two) Branch times daily. Use in each nostril as directed fluticasone 2020-02 Yes [id number] 2{puff} Inhale 2 [facility] propionate 2-02 Puffs 2 ity of (FLOVENT 00:00: (two) [place] HFA) 44 00 times Medical mcg/actuati daily. Branch on inhaler Rinse mouth after each use. azelastine 2020-02 Yes [id number] 1{spray Use 1 [facility] 137 mcg 2-02 } Bulger in ity of (0.1 %) 00:00: each [place] nasal spray 00 nostril 2 Med ical (two) Branch times daily. Use in each nostril as directed fluticasone 2020-02 Yes [id number] 2{puff} Inhale 2 [facility] propionate 2-02 Puffs 2 ity of (FLOVENT 00:00: (two) [place] HFA) 44 00 times Medical mcg/actuati daily. Branch on inhaler Rinse mouth after each use. azelastine 2020-02 Yes [id number] 1{spray Use 1 [facility] 137 mcg 2-02 } Bulger in ity of (0.1 %) 00:00: each [place] nasal spray 00 nostril 2 Med ical (two) Branch times daily. Use in each nostril as directed fluticasone 2020-02 Yes [id number] 2{puff} Inhale 2 [facility] propionate 2-02 Puffs 2 ity of (FLOVENT 00:00: (two) [place] HFA) 44 00 times Medical mcg/actuati daily. Branch on inhaler Rinse mouth after each use. azelastine 2020-02 Yes [id number] 1{spray Use 1 [facility] 137 mcg 2-02 } Bulger in ity of (0.1 %) 00:00: each [place] nasal spray 00 nostril 2 Med ical (two) Branch times daily. Use in each nostril as directed fluticasone 2020-02 Yes [id number] 2{puff} Inhale 2 [facility] propionate 2-02 Puffs 2 ity of (FLOVENT 00:00: (two) [place] HFA) 44 00 times Medical mcg/actuati daily. Branch on inhaler Rinse mouth after each use. azelastine 2020-02 Yes [id number] 1{spray Use 1 [facility] 137 mcg 2-02 } Bulger in ity of (0.1 %) 00:00: each [place] nasal spray 00 nostril 2 Med ical (two) Branch times daily. Use in each nostril as directed fluticasone 2020-02 Yes [id number] 2{puff} Inhale 2 [facility] propionate 2-02 Puffs 2 ity of (FLOVENT 00:00: (two) [place] HFA) 44 00 times Medical mcg/actuati daily. Branch on inhaler Rinse mouth after each use. azelastine 2020-02 Yes [id number] 1{spray Use 1 [facility] 137 mcg 2-02 } Bulger in ity of (0.1 %) 00:00: each [place] nasal spray 00 nostril 2 Med ical (two) Branch times daily. Use in each nostril as directed fluticasone 2020-02 Yes [id number] 2{puff} Inhale 2 [facility] propionate 2-02 Puffs 2 ity of (FLOVENT 00:00: (two) [place] HFA) 44 00 times Medical mcg/actuati daily. Branch on inhaler Rinse mouth after each use. azelastine 2020-02 Yes [id number] 1{spray Use 1 [facility] 137 mcg 2-02 } Bulger in ity of (0.1 %) 00:00: each [place] nasal spray 00 nostril 2 Med ical (two) Branch times daily. Use in each nostril as directed fluticasone 2020-02 Yes [id number] 2{puff} Inhale 2 [facility] propionate 2-02 Puffs 2 ity of (FLOVENT 00:00: (two) [place] HFA) 44 00 times Medical mcg/actuati daily. Branch on inhaler Rinse mouth after each use. azelastine 2020-02 Yes [id number] 1{spray Use 1 [facility] 137 mcg 2-02 } Bulger in ity of (0.1 %) 00:00: each [place] nasal spray 00 nostril 2 Med ical (two) Branch times daily. Use in each nostril as directed fluticasone 2020-02 Yes [id number] 2{puff} Inhale 2 [facility] propionate 2-02 Puffs 2 ity of (FLOVENT 00:00: (two) [place] HFA) 44 00 times Medical mcg/actuati daily. Branch on inhaler Rinse mouth after each use. azelastine 2020-02 Yes [id number] 1{spray Use 1 [facility] 137 mcg 2-02 } Bulger in ity of (0.1 %) 00:00: each [place] nasal spray 00 nostril 2 Med ical (two) Branch times daily. Use in each nostril as directed fluticasone 2020-02 Yes [id number] 2{puff} Inhale 2 [facility] propionate 2-02 Puffs 2 ity of (FLOVENT 00:00: (two) [place] HFA) 44 00 times Medical mcg/actuati daily. Branch on inhaler Rinse mouth after each use. azelastine 2020-02 Yes [id number] 1{spray Use 1 [facility] 137 mcg 2-02 } Bulger in ity of (0.1 %) 00:00: each [place] nasal spray 00 nostril 2 Med ical (two) Branch times daily. Use in each nostril as directed fluticasone 2020-02 Yes [id number] 2{puff} Inhale 2 [facility] propionate 2-02 Puffs 2 ity of (FLOVENT 00:00: (two) [place] HFA) 44 00 times Medical mcg/actuati daily. Branch on inhaler Rinse mouth after each use. azelastine 2020-02 Yes [id number] 1{spray Use 1 [facility] 137 mcg 2-02 } Bulger in ity of (0.1 %) 00:00: each [place] nasal spray 00 nostril 2 Med ical (two) Branch times daily. Use in each nostril as directed fluticasone 2020-02 Yes [id number] 2{puff} Inhale 2 [facility] propionate 2-02 Puffs 2 ity of (FLOVENT 00:00: (two) [place] HFA) 44 00 times Medical mcg/actuati daily. Branch on inhaler Rinse mouth after each use. azelastine 2020-02 Yes [id number] 1{spray Use 1 [facility] 137 mcg 2-02 } Bulger in ity of (0.1 %) 00:00: each [place] nasal spray 00 nostril 2 Med ical (two) Branch times daily. Use in each nostril as directed fluticasone 2020-02 Yes [id number] 2{puff} Inhale 2 [facility] propionate 2-02 Puffs 2 ity of (FLOVENT 00:00: (two) [place] HFA) 44 00 times Medical mcg/actuati daily. Branch on inhaler Rinse mouth after each use. azelastine 2020-02 Yes [id number] 1{spray Use 1 [facility] 137 mcg 2-02 } Bulger in ity of (0.1 %) 00:00: each [place] nasal spray 00 nostril 2 Med ical (two) Branch times daily. Use in each nostril as directed fluticasone 2020-02 Yes [id number] 2{puff} Inhale 2 [facility] propionate 2-02 Puffs 2 ity of (FLOVENT 00:00: (two) [place] HFA) 44 00 times Medical mcg/actuati daily. Branch on inhaler Rinse mouth after each use. Magnesium 2020-02 Yes Take by [facility] 100 MG CAPS 1-10 mouth. Paul dias 15:46: of 22 Medicin e Melatonin 2020-02 Yes Take by [facility] 10 MG TABS 1-10 mouth. [place] 15:46: of 22 Medicin e oxybutynin 2020-02 Yes 10mg Take 1 [facility] (DITROPAN 1-10 Tablet by [employer] [facility] XL) 10 MG 00:00: mouth of [place] tablet 00 daily. Medicin e oxybutynin 2020-02 Yes 10mg Take 1 [facility] (DITROPAN 1-10 Tablet by Shanda ge XL) 10 MG 00:00: mouth of [place] tablet 00 daily. Medicin e oxybutynin 2020-02- No 10mg Take 1 [facility] (DITROPAN 1-10 09-19 Tablet by Kristine SHEPPARD) 10 MG 00:00: 00:00 mouth of [place] tablet 00 :00 daily. Medicin e albuterol Yes [id number] 2{puff} Inhale 2 [facility] (PROAIR 9-03 Puffs ity of HFA) 90 00:00: every 6 [place] mcg/actuati 00 (six) Medical on inhaler hours as Branc h needed for Wheezing or Shortness of Breath. albuterol Yes [id number] 2{puff} Inhale 2 [facility] (PROAIR 9-03 Puffs ity of HFA) 90 00:00: every 6 [place] mcg/actuati 00 (six) Medical on inhaler hours as Branc h needed for Wheezing or Shortness of Breath. albuterol Yes [id number] 2{puff} Inhale 2 [facility] (PROAIR 9-03 Puffs ity of HFA) 90 00:00: every 6 [place] mcg/actuati 00 (six) Medical on inhaler hours as Branc h needed for Wheezing or Shortness of Breath. albuterol Yes [id number] 2{puff} Inhale 2 [facility] (PROAIR 9-03 Puffs ity of HFA) 90 00:00: every 6 [place] mcg/actuati 00 (six) Medical on inhaler hours as Branc h needed for Wheezing or Shortness of Breath. albuterol Yes [id number] 2{puff} Inhale 2 [facility] (PROAIR 9-03 Puffs ity of HFA) 90 00:00: every 6 [place] mcg/actuati 00 (six) Medical on inhaler hours as Branc h needed for Wheezing or Shortness of Breath. albuterol Yes [id number] 2{puff} Inhale 2 [facility] (PROAIR 9-03 Puffs ity of HFA) 90 00:00: every 6 [place] mcg/actuati 00 (six) Medical on inhaler hours as Branc h needed for Wheezing or Shortness of Breath. albuterol Yes [id number] 2{puff} Inhale 2 [facility] (PROAIR 9-03 Puffs ity of HFA) 90 00:00: every 6 [place] mcg/actuati 00 (six) Medical on inhaler hours as Branc h needed for Wheezing or Shortness of Breath. albuterol Yes [id number] 2{puff} Inhale 2 [facility] (PROAIR 9-03 Puffs ity of HFA) 90 00:00: every 6 [place] mcg/actuati 00 (six) Medical on inhaler hours as Branc h needed for Wheezing or Shortness of Breath. albuterol 0 Yes [id number] 2{puff} Inhale 2 [facility] (PROAIR 9-03 Puffs ity of HFA) 90 00:00: every 6 [place] mcg/actuati 00 (six) Medical on inhaler hours as Branc h needed for Wheezing or Shortness of Breath. albuterol Yes [id number] 2{puff} Inhale 2 [facility] (PROAIR 9-03 Puffs ity of HFA) 90 00:00: every 6 [place] mcg/actuati 00 (six) Medical on inhaler hours as Branc h needed for Wheezing or Shortness of Breath. albuterol Yes [id number] 2{puff} Inhale 2 [facility] (PROAIR 9-03 Puffs ity of HFA) 90 00:00: every 6 [place] mcg/actuati 00 (six) Medical on inhaler hours as Branc h needed for Wheezing or Shortness of Breath. albuterol Yes [id number] 2{puff} Inhale 2 [facility] (PROAIR 9-03 Puffs ity of HFA) 90 00:00: every 6 [place] mcg/actuati 00 (six) Medical on inhaler hours as Branc h needed for Wheezing or Shortness of Breath. albuterol Yes [id number] 2{puff} Inhale 2 [facility] (PROAIR 9-03 Puffs ity of HFA) 90 00:00: every 6 [place] mcg/actuati 00 (six) Medical on inhaler hours as Branc h needed for Wheezing or Shortness of Breath. albuterol 0 Yes [id number] 2{puff} Inhale 2 [facility] (PROAIR 9-03 Puffs ity of HFA) 90 00:00: every 6 [place] mcg/actuati 00 (six) Medical on inhaler hours as Branc h needed for Wheezing or Shortness of Breath. albuterol Yes [id number] 2{puff} Inhale 2 [facility] (PROAIR 9-03 Puffs ity of HFA) 90 00:00: every 6 [place] mcg/actuati 00 (six) Medical on inhaler hours as Branc h needed for Wheezing or Shortness of Breath. albuterol 0 Yes [id number] 2{puff} Inhale 2 [facility] (PROAIR 9-03 Puffs ity of HFA) 90 00:00: every 6 [place] mcg/actuati 00 (six) Medical on inhaler hours as Branc h needed for Wheezing or Shortness of Breath. albuterol Yes [id number] 2{puff} Inhale 2 [facility] (PROAIR 9-03 Puffs ity of HFA) 90 00:00: every 6 [place] mcg/actuati 00 (six) Medical on inhaler hours as Branc h needed for Wheezing or Shortness of Breath. albuterol Yes [id number] 2{puff} Inhale 2 [facility] (PROAIR 9-03 Puffs ity of HFA) 90 00:00: every 6 [place] mcg/actuati 00 (six) Medical on inhaler hours as Branc h needed for Wheezing or Shortness of Breath. albuterol Yes [id number] 2{puff} Inhale 2 [facility] (PROAIR 9-03 Puffs ity of HFA) 90 00:00: every 6 [place] mcg/actuati 00 (six) Medical on inhaler hours as Branc h needed for Wheezing or Shortness of Breath. albuterol Yes [id number] 2{puff} Inhale 2 [facility] (PROAIR 9-03 Puffs ity of HFA) 90 00:00: every 6 [place] mcg/actuati 00 (six) Medical on inhaler hours as Branc h needed for Wheezing or Shortness of Breath. albuterol Yes [id number] 2{puff} Inhale 2 [facility] (PROAIR 9-03 Puffs ity of HFA) 90 00:00: every 6 [place] mcg/actuati 00 (six) Medical on inhaler hours as Branc h needed for Wheezing or Shortness of Breath. albuterol Yes [id number] 2{puff} Inhale 2 [facility] (PROAIR 9-03 Puffs ity of HFA) 90 00:00: every 6 [place] mcg/actuati 00 (six) Medical on inhaler hours as Branc h needed for Wheezing or Shortness of Breath. albuterol Yes [id number] 2{puff} Inhale 2 [facility] (PROAIR 9-03 Puffs ity of HFA) 90 00:00: every 6 [place] mcg/actuati 00 (six) Medical on inhaler hours as Branc h needed for Wheezing or Shortness of Breath. albuterol Yes [id number] 2{puff} Inhale 2 [facility] (PROAIR 9-03 Puffs ity of HFA) 90 00:00: every 6 [place] mcg/actuati 00 (six) Medical on inhaler hours as Branc h needed for Wheezing or Shortness of Breath. amLODIPine 2021- No [id number] 2.5mg Take 1 [facility] 2.5 mg 07-20 tablet by ity of tablet 00:00: 00:00 mouth [place] 00 :00 daily. Medical Branch hydrochloro 2020- No 25mg Take 25 mg [facility] thiazide 3-22 03-22 by mouth Paul e (HYDRODIURI 16:58: 00:00 daily. of L) 25 MG 25 :00 Medicin tablet e Magnesium Yes Take by [facility] 100 MG CAPS 3-22 mouth. Paul dias 15:58: of 46 Medicin e Melatonin Yes Take by [facility] 10 MG TABS 3-22 mouth. [place] 15:58: of 46 Medicin e hydrochloro Yes 25mg Take 1 [facility] thiazide 3-22 Tablet by Paul e (HYDRODIURI 00:00: mouth of L) 25 MG 00 daily. Medicin tablet e Potassium Yes Take 2 [facility] Citrate 3-22 tablets PO Shandag e (UROCIT-K 00:00: TID of 10) 10 MEQ 00 Medicin (1080 MG) e TBCR hydrochloro Yes 25mg Take 1 [facility] thiazide 3-22 Tablet by Shandag e (HYDRODIURI 00:00: mouth of L) 25 MG 00 daily. Medicin tablet e Potassium 2021-0 Yes Take 2 [facility] Citrate 3-22 tablets PO [facility] (UROCIT-K 00:00: TID of 10) 10 MEQ 00 Medicin (1080 MG) e TBCR hydrochloro Yes 25mg Take 1 [facility] thiazide 3-22 Tablet by [facility] (HYDRODIURI 00:00: mouth of L) 25 MG 00 daily. Medicin tablet e Potassium Yes Take 2 [facility] Citrate 3-22 tablets PO Colleg [facility] (UROCIT-K 00:00: TID of 10) 10 MEQ 00 Medicin (1080 MG) e TBCR oxybutynin Yes 10mg Take 1 [facility] (DITROPAN 3-22 Tablet by [facility] XL) 10 MG 00:00: mouth of CR tablet 00 daily. Medicin e hydrochloro 0 2021- No 25mg Take 1 [place] raul thiazide 3-22 -19 Tablet by [facility] (HYDRODIURI 00:00: 00:00 mouth of L) 25 MG 00 :00 daily. Medicin tablet e Potassium 2021- No Take 2 [facility] Citrate 3-22 -19 tablets PO Colle [facility] (UROCIT-K 00:00: 00:00 TID of 10) 10 MEQ 00 :00 Medicin (1080 MG) e TBCR oxybutynin 2020- No 10mg Take 1 [facility] (DITROPAN 3-22 11-10 Tablet by Kristine ege XL) 10 MG 00:00: 00:00 mouth of CR tablet 00 :00 daily. Medicin e hydrochloro 2019-02 Yes 25mg Take 25 mg [facility] thiazide 1-23 by mouth [place] (HYDRODIURI 17:00: daily. of L) 25 MG 06 Medicin tablet e Magnesium 2019-02 Yes Take by [facility] 100 MG CAPS 1-23 mouth. [facility] 17:00: of 06 Medicin e Melatonin 2019-02 Yes Take by [...] TBCR levothyroxi 2019-02 Yes 25ug Take 25 [place] raul ne 1-02 mcg by [facility] (SYNTHROID) 00:00: mouth. of 25 MCG 00 Medicin tablet e levothyroxi 2019-02 Yes 25ug Take 25 [place] raul ne 1-02 mcg by [facility] (SYNTHROID) 00:00: mouth. of 25 MCG 00 Medicin tablet e levothyroxi 2019-02- No 25ug Take 25 [facility] ne 1-02 11-10 mcg by [place] (SYNTHROID) 00:00: 00:00 mouth. of 25 MCG 00 :00 Medicin tablet e aspirin 81 2019-02 Yes [id number] 81mg Take 1 [facility] mg chewable 0-01 [id number] tablet by i ty of tablet 00:00: mouth [place] 00 daily. [facility] aspirin 81 2019-02 Yes [id number] 81mg Take 1 [facility] mg chewable 0-01 [id number] tablet by i ty of tablet 00:00: mouth [place] 00 daily. [facility] aspirin 81 2019-02 Yes [id number] 81mg Take 1 [facility] mg chewable 0-01 [id number] tablet by i ty of tablet 00:00: mouth [place] 00 daily. [facility] aspirin 81 2019-02 Yes [id number] 81mg Take 1 [facility] mg chewable 0-01 [id number] tablet by i ty of tablet 00:00: mouth [place] 00 daily. [facility] aspirin 81 2019-02 Yes [id number] 81mg Take 1 [facility] mg chewable 0-01 [id number] tablet by i ty of tablet 00:00: mouth [place] 00 daily. [facility] aspirin 81 2019-02 Yes [id number] 81mg Take 1 [facility] mg chewable 0-01 [id number] tablet by i ty of tablet 00:00: mouth [place] 00 daily. [facility] aspirin 81 2019- Yes [id number] 81mg Take 1 [facility] mg chewable 0-01 [id number] tablet by i ty of tablet 00:00: mouth [place] 00 daily. [facility] aspirin 81 2019- Yes [id number] 81mg Take 1 [facility] mg chewable 0-01 [id number] tablet by i ty of tablet 00:00: mouth [place] 00 daily. [facility] aspirin 81 2019- Yes [id number] 81mg Take 1 [facility] mg chewable 0-01 [id number] tablet by i ty of tablet 00:00: mouth [place] 00 daily. [facility] aspirin 81 2020- Yes [id number] 81mg Take 1 [facility] mg chewable 0-01 [id number] tablet by i ty of tablet 00:00: mouth [place] 00 daily. [facility] aspirin 81 2019- Yes [id number] 81mg Take 1 [facility] mg chewable 0-01 [id number] tablet by i ty of tablet 00:00: mouth [place] 00 daily. [facility] aspirin 81 2019- Yes [id number] 81mg Take 1 [facility] mg chewable 0-01 [id number] tablet by i ty of tablet 00:00: mouth [place] 00 daily. [facility] aspirin 81 2019- Yes [id number] 81mg Take 1 [facility] mg chewable 0-01 [id number] tablet by i ty of tablet 00:00: mouth [place] 00 daily. [facility] aspirin 81 2019- Yes [id number] 81mg Take 1 [facility] mg chewable 0-01 [id number] tablet by i ty of tablet 00:00: mouth [place] 00 daily. [facility] aspirin 81 2019- Yes [id number] 81mg Take 1 [facility] mg chewable 0-01 [id number] tablet by i ty of tablet 00:00: mouth [place] 00 daily. [facility] aspirin 81 2019- Yes [id number] 81mg Take 1 [facility] mg chewable 0-01 [id number] tablet by i ty of tablet 00:00: mouth [place] 00 daily. [facility] aspirin 81 2020- Yes [id number] 81mg Take 1 [facility] mg chewable 0-01 [id number] tablet by i ty of tablet 00:00: mouth [place] 00 daily. [facility] aspirin 81 2019- Yes [id number] 81mg Take 1 [facility] mg chewable 0-01 [id number] tablet by i ty of tablet 00:00: mouth [place] 00 daily. [facility] aspirin 81 2020- Yes [id number] 81mg Take 1 [facility] mg chewable 0-01 [id number] tablet by i ty of tablet 00:00: mouth [place] 00 daily. [facility] aspirin 81 2020- Yes [id number] 81mg Take 1 [facility] mg chewable 0-01 [id number] tablet by i ty of tablet 00:00: mouth [place] 00 daily. [facility] aspirin 81 2020- Yes [id number] 81mg Take 1 [facility] mg chewable 0-01 [id number] tablet by i ty of tablet 00:00: mouth [place] 00 daily. [facility] aspirin 81 2020-1 Yes [id number] 81mg Take 1 [facility] mg chewable 0-01 [id number] tablet by i ty of tablet 00:00: mouth [place] 00 daily. [facility] aspirin 81 2020-1 Yes [id number] 81mg Take 1 [facility] mg chewable 0-01 [id number] tablet by i ty of tablet 00:00: mouth [place] 00 daily. [facility] aspirin 81 2020-1 Yes [id number] 81mg Take 1 [facility] mg chewable 0-01 [id number] tablet by i ty of tablet 00:00: mouth [place] 00 daily. [facility] atorvastati 2020-0 Yes Rat n (LIPITOR) 6-13 [facility] 40 MG 00:00: of tablet 00 Medicin e atorvastati 2020-0 Yes Art n (LIPITOR) 6-13 [facility] 40 MG 00:00: of tablet 00 Medicin e atorvastati 2020-0 Yes Art n (LIPITOR) 6-13 College 40 MG 00:00: of tablet 00 Medicin e atorvastati 2020-0 Yes [facility] n (LIPITOR) 6-13 [facility] 40 MG 00:00: of tablet 00 Medicin e atorvastati 2020-0 Yes Art n (LIPITOR) 6-13 [facility] 40 MG 00:00: of tablet 00 Medicin e atorvastati 2020-0 Yes [facility] n (LIPITOR) 6-13 [facility] 40 MG 00:00: of tablet 00 Medicin e atorvastati 2020-0 Yes Art n (LIPITOR) 6-13 [facility] 40 MG 00:00: of tablet 00 Medicin e amlodipine 2020-0 Yes [facility] (NORVASC) 5 6-02 College MG tablet 00:00: of 00 Medicin e amlodipine 2020-0 Yes [facility] (NORVASC) 5 6-02 College MG tablet 00:00: of 00 Medicin e amlodipine 2020-0 Yes [facility] (NORVASC) 5 6-02 College MG tablet 00:00: of 00 Medicin e amlodipine 2020-0 Yes [facility] (NORVASC) 5 6-02 College MG tablet 00:00: of 00 Medicin e amlodipine 2020-0 Yes Art (NORVASC) 5 6-02 College MG tablet 00:00: of 00 Medicin e amlodipine 2020-0 2022- No [facility] (NORVASC) 5 6-02 09-19 College MG tablet 00:00: 00:00 of 00 :00 Medicin e losartan 2020-0 Yes Art (COZAAR) 5-30 College 100 MG 00:00: of tablet 00 Medicin e losartan 2020-0 Yes Art (COZAAR) 5-30 College 100 MG 00:00: of tablet 00 Medicin e losartan 2020-0 Yes 50mg 50 mg. [facility] (COZAAR) 5-30 takes 50 [facility] 100 MG 00:00: mg , and of tablet 00 now she is Medicin taking e half of the dose 25 mg every day losartan 2020-0 Yes 50mg 50 mg. [facility] (COZAAR) 5-30 takes 50 [facility] 100 MG 00:00: mg , and of tablet 00 now she is Medicin taking e half of the dose 25 mg every day losartan 2020-0 Yes [facility] (COZAAR) 5-30 College 100 MG 00:00: of tablet 00 Medicin e losartan 2020-0 Yes [facility] (COZAAR) 5-30 College 100 MG 00:00: of tablet 00 Medicin e losartan 2020-0 Yes Art (COZAAR) 5-30 College 100 MG 00:00: of [...] for premedicat ion hydrALAZINE 2020-0 Yes 50mg Q.[id number] Take [address] [facility] (APRESOLINE 2-17 [id number] [facility] 50 MG 00:00: 3D (three) Medical tablet 00 times Center daily . hydroCHLORO 2020-0 Yes 25mg QD Take [address] [facility] thiazide 2-17 by [facility] (HYDRODIURI 00:00: daily. Medi angel[facility] L) 25 MG 00 Center tablet hydrALAZINE 2020-0 Yes 50mg Q.[id number] Take [address] [facility] (APRESOLINE 2-17 [id number] [facility] ) 50 MG 00:00: 3D (three) Medical tablet 00 times Center daily . hydroCHLORO 2020-0 Yes 25mg QD Take [address] [facility] thiazide 2-17 by mouth [facility] (HYDRODIURI 00:00: daily. [facility]i angel[facility] L) 25 MG 00 Center tablet hydrALAZINE 2020-0 Yes 50mg Q.[id number] Take [address] [facility] (APRESOLINE 2-17 [id number] by [facility] ) 50 MG 00:00: 3D (three) Medical tablet 00 times Center daily . hydroCHLORO 2020-0 Yes 25mg QD Take [address] [facility] thiazide 2-17 by mouth [facility] (HYDRODIURI 00:00: daily. [facility]i angel[facility] L) 25 MG 00 Center tablet hydrALAZINE 2020-0 Yes 50mg Q.[id number] Take [address] [facility] (APRESOLINE 2-17 [id number] by mouth [facility] ) 50 MG 00:00: 3D (three) Medical tablet 00 times Center daily . hydroCHLORO 2020-0 Yes 25mg QD Take [address] [facility] thiazide 2-17 by mouth [facility] (HYDRODIURI 00:00: daily. Medi angelica L) 25 MG 00 Center tablet hydrALAZINE 2020-0 Yes 50mg Q.[id number] Take [address] [facility] (APRESOLINE 2-17 [id number] by mouth [facility] ) 50 MG 00:00: 3D (three) Medical tablet 00 times Center daily . hydroCHLORO 2020-0 Yes 25mg QD Take [address] [facility] thiazide 2-17 by mouth [facility] (HYDRODIURI 00:00: daily. Medi angelica L) [address] [place] [address] tablet aspirin 81 2019-0 Yes 81mg QD Take [address] MG chewable 6-21 by mouth [facility] tablet 00:00: daily. [address] aspirin EC 2019-0 Yes 81mg Take 81 [...] by mouth [facility] tablet 00:00: daily. [address] aspirin 81 2019-0 Yes 81mg QD Take [address] MG chewable 6-21 by mouth [facility] tablet 00:00: daily. [address] aspirin 81 2019-0 Yes 81mg QD Take [address] MG chewable 6-21 by mouth [facility] tablet 00:00: daily. [address] aspirin 81 2019-0 Yes 81mg QD Take [address] MG chewable 6-21 by mouth [facility] tablet 00:00: daily. [address] atorvastati 2017-02 Yes 40mg QD Take [address] [facility] n (LIPITOR) 1-30 by mouth [facility] 40 MG 00:00: daily. Medical tablet [address] [place] [address] amLODIPine 2017-02 Yes 2.5mg QD Take 2.[address] [facility] [address] [facility] (NORVASC) 5 1-30 mg by [facility] tablet 00:00: mouth Medical 00 daily . [place] atorvastati 2017-02 Yes 40mg QD Take [address] [facility] n (LIPITOR) 1-30 by mouth [facility] 40 MG 00:00: daily. Medical tablet 00 [place] amLODIPine 2017-02 Yes 2.5mg QD Take 2.[address] (NORVASC) 5 1-30 mg by [facility] tablet 00:00: mouth Medical 00 daily . [place] atorvastati 2017-02 Yes 40mg QD Take [address] [facility] n (LIPITOR) 1-30 by mouth [facility] 40 MG 00:00: daily. Medical tablet 00 [place] amLODIPine 2017-02 Yes 2.5mg QD Take 2.[address] (NORVASC) 5 1-30 mg by [facility] tablet 00:00: mouth Medical 00 daily . [place] atorvastati 2017-02 Yes 40mg QD Take [address] [facility] n (LIPITOR) 1-30 by mouth [facility] 40 MG 00:00: daily. Medical tablet 00 [place] amLODIPine 2017-02 Yes 2.5mg QD Take 2.[address] (NORVASC) 5 1-30 mg by [facility] tablet 00:00: mouth Medical 00 daily . [place] atorvastati 2017-02 Yes 40mg QD Take [address] [facility] n (LIPITOR) 1-30 by mouth [facility] 40 MG 00:00: daily. Medical tablet 00 [place] amLODIPine 2017-02 Yes 2.5mg QD Take 2.[address] (NORVASC) 5 1-30 mg by [facility] tablet 00:00: mouth Medical 00 daily . Center Immunizations Ordered Immunization Filled Immunization Date Status Commen ts Source Name Name Influenza Virus 2021-12-24 Completed [facility] Vaccine,quad [facility] [place] [facility] Free [facility] Influenza Virus 2021-12-24 Completed [facility] of Vaccine,quad 00:00:00 [place] [facility],preserve Free [facility]+ Bran [facility] Influenza Virus 2021-12-24 Completed [facility] of Vaccine,quad 00:00:00 [place] [facility],preserve Free [facility]+ Bran [facility] Influenza Virus 2021-12-24 Completed [facility] of Vaccine,quad 00:00:00 [place] [facility],preserve Free 65+ Bran [facility] Influenza Virus 2021-12-24 Completed [facility] of Vaccine,quad 00:00:00 [place] [facility],preserve Free 65+ Bran ch Influenza Virus 2021-12-24 Completed [facility]it y of Vaccine,quad 00:00:00 [place] [facility],preserve Free 65+ Bran ch SARS-COV-2 COVID-19 2021-01-15 Completed Unive rsity of MODERNA 0.25ML 00:00:00 [place] [facility] BOOSTER VACCINE Branch SARS-COV-2 COVID-19 2021-01-15 Completed Unive rsity of MODERNA 0.25ML 00:00:00 [place] [facility] BOOSTER VACCINE Branch SARS-COV-2 COVID-19 2021-01-15 Completed Unive rsity of MODERNA 0.25ML 00:00:00 [place] [facility] BOOSTER VACCINE Branch SARS-COV-2 COVID-19 2021-01-15 Completed Unive rsity of MODERNA 0.25ML 00:00:00 [place] [facility] BOOSTER VACCINE Branch SARS-COV-2 COVID-19 2021-01-15 Completed Unive rsity of MODERNA 0.25ML 00:00:00 [place] [facility] BOOSTER VACCINE Branch SARS-COV-2 COVID-19 2021-01-15 Completed Unive rsity of MODERNA 0.25ML 00:00:00 [place] [facility] BOOSTER VACCINE Branch SARS-COV-2 COVID-19 2021-01-15 Completed Unive rsity of MODERNA 0.25ML 00:00:00 [place] [facility] BOOSTER VACCINE Branch SARS-COV-2 COVID-19 2021-01-15 Completed Unive rsity of MODERNA 0.25ML 00:00:00 [place] [facility] BOOSTER VACCINE Branch SARS-COV-2 COVID-19 2021-01-15 Completed Unive rsity of MODERNA 0.25ML 00:00:00 [place] [facility] BOOSTER VACCINE Branch SARS-COV-2 COVID-19 2021-01-15 Completed Unive rsity of MODERNA 0.25ML 00:00:00 [place] [facility] BOOSTER VACCINE Branch SARS-COV-2 COVID-19 2021-01-15 Completed Unive rsity of MODERNA 0.25ML 00:00:00 [place] [facility] BOOSTER VACCINE Branch SARS-COV-2 COVID-19 2021-01-15 Completed Unive rsity of MODERNA 0.25ML 00:00:00 [place] [facility] BOOSTER VACCINE Branch SARS-COV-2 COVID-19 2021-01-15 Completed Unive rsity of MODERNA 0.25ML 00:00:00 [place] [facility] BOOSTER VACCINE Branch SARS-COV-2 COVID-19 2021-01-15 Completed Unive rsity of MODERNA 0.25ML 00:00:00 [place] [facility] BOOSTER VACCINE Branch SARS-COV-2 COVID-19 2021-01-15 Completed Unive rsity of MODERNA 0.25ML 00:00:00 [place] [facility] BOOSTER VACCINE Branch SARS-COV-2 COVID-19 2021-01-15 Completed Unive rsity of MODERNA 0.25ML 00:00:00 [place] [facility] BOOSTER VACCINE Branch SARS-COV-2 COVID-19 2021-01-15 Completed Unive rsity of MODERNA 0.25ML 00:00:00 [place] [facility] BOOSTER VACCINE Branch SARS-COV-2 COVID-19 2021-01-15 Completed Unive rsity of MODERNA 0.25ML 00:00:00 [place] [facility] BOOSTER VACCINE Branch SARS-COV-2 COVID-19 2021-01-15 Completed Unive rsity of MODERNA 0.25ML 00:00:00 [place] [facility] BOOSTER VACCINE Branch SARS-COV-2 COVID-19 2021-01-15 Completed Unive rsity of MODERNA 0.25ML 00:00:00 [place] [facility] BOOSTER VACCINE Branch SARS-COV-2 COVID-19 2021-01-15 Completed Unive rsity of MODERNA 0.25ML 00:00:00 [place] [facility] BOOSTER VACCINE Branch SARS-COV-2 COVID-19 2021-01-15 Completed Unive rsity of MODERNA 0.25ML 00:00:00 [place] [facility] BOOSTER VACCINE Branch SARS-COV-2 COVID-19 2021-01-15 Completed Unive rsity of MODERNA 0.25ML 00:00:00 [place] [facility] BOOSTER VACCINE Branch SARS-COV-2 COVID-19 2021-01-15 Completed Unive rsity of MODERNA 0.25ML 00:00:00 [place] [facility] BOOSTER VACCINE Branch Influenza High Dose 2019-11-08 Completed Unive rsity of Quad 00:00:00 [facility] Influenza High Dose 2019-11-08 Completed Unive rsity of Quad 00:00:00 [facility] Influenza High Dose 2019-11-08 Completed Unive rsity of Quad 00:00:00 [facility] Influenza High Dose 2019-11-08 Completed Unive rsity of Quad 00:00:00 [facility] Influenza High Dose 2019-11-08 Completed Unive rsity of Quad 00:00:00 [facility] Influenza High Dose 2019-11-08 Completed Unive rsity of Quad 00:00:00 [facility] Influenza High Dose 2019-11-08 Completed Unive rsity of Quad 00:00:00 [facility] Influenza High Dose 2019-11-08 Completed Unive rsity of Quad 00:00:00 [facility] Influenza High Dose 2019-11-08 Completed Unive rsity of Quad 00:00:00 [facility] Influenza High Dose 2019-11-08 Completed Unive rsity of Quad 00:00:00 [facility] Influenza High Dose 2019-11-08 Completed Unive rsity of Quad 00:00:00 [facility] Influenza High Dose 2019-11-08 Completed Unive rsity of Quad 00:00:00 [facility] Influenza High Dose 2019-11-08 Completed Unive rsity of Quad 00:00:00 [facility] Influenza High Dose 2019-11-08 Completed Unive rsity of Quad 00:00:00 [facility] Influenza High Dose 2019-11-08 Completed Unive rsity of Quad 00:00:00 [facility] Influenza High Dose 2019-11-08 Completed Unive rsity of Quad 00:00:00 [facility] Influenza High Dose 2019-11-08 Completed Unive rsity of Quad 00:00:00 [facility] Influenza High Dose 2019-11-08 Completed Unive rsity of Quad 00:00:00 [facility] Influenza High Dose 2019-11-08 Completed Unive rsity of Quad 00:00:00 [facility] Influenza High Dose 2019-11-08 Completed Unive rsity of 00:00:00 [facility] Influenza High Dose 2019-11-08 Completed Unive rsity of Quad 00:00:00 [facility] Influenza High Dose 2019-11-08 Completed Unive rsity of 00:00:00 [facility] Influenza High Dose 2019-11-08 Completed Unive rsity of Quad 00:00:00 [facility] Influenza High Dose 2019-11-08 Completed Unive rsity of 00:00:00 [facility] Influenza High Dose 2019-11-08 Completed Unive rsity of Quad 00:00:00 [facility] Influenza High Dose 2019-11-08 Completed Unive rsity of 00:00:00 [facility] Influenza High Dose 2019-11-08 Completed Unive rsity of Quad 00:00:00 [facility] Influenza High Dose 2019-11-08 Completed Unive rsity of 00:00:00 [facility] Influenza High Dose 2019-11-08 Completed Unive rsity of Quad 00:00:00 [facility] Influenza High Dose 2019-11-08 Completed Unive rsity of 00:00:00 [facility] Influenza Hd 2019-11-08 Completed [facility] Colle ge 00:00:00 of Medicine Influenza Hd 2019-11-08 Completed [facility] Colle ge 00:00:00 of Medicine Influenza High Dose 2019-02-13 Completed Unive rsity of 00:00:00 [facility] Influenza High Dose 2019-02-13 Completed Unive rsity of 00:00:00 [facility] Influenza High Dose 2019-02-13 Completed Unive rsity of 00:00:00 [facility] Influenza High Dose 2019-02-13 Completed Unive rsity of 00:00:00 [facility] Influenza High Dose 2019-02-13 Completed Unive rsity of 00:00:00 [facility] Influenza High Dose 2019-02-13 Completed Unive rsity of 00:00:00 [facility] Influenza High Dose 2019-02-13 Completed Unive rsity of 00:00:00 [facility] Influenza High Dose 2019-02-13 Completed Unive rsity of 00:00:00 [facility] Influenza High Dose 2019-02-13 Completed Unive rsity of 00:00:00 [facility] Influenza High Dose 2019-02-13 Completed Unive rsity of 00:00:00 [facility] Influenza High Dose 2019-02-13 Completed Unive rsity of 00:00:00 [facility] Influenza High Dose 2019-02-13 Completed Unive rsity of 00:00:00 [facility] Influenza High Dose 2019-02-13 Completed Unive rsity of 00:00:00 [facility] Influenza High Dose 2019-02-13 Completed Unive rsity of 00:00:00 [facility] Influenza High Dose 2019-02-13 Completed Unive rsity of 00:00:00 [facility] Influenza High Dose 2019-02-13 Completed Unive rsity of 00:00:00 [facility] Influenza High Dose 2019-02-13 Completed Unive rsity of 00:00:00 [facility] Influenza High Dose 2019-02-13 Completed Unive rsity of 00:00:00 [facility] Influenza High Dose 2019-02-13 Completed Unive rsity of 00:00:00 [facility] Influenza High Dose 2019-02-13 Completed Unive rsity of 00:00:00 [facility] Influenza High Dose 2019-02-13 Completed Unive rsity of 00:00:00 [facility] Influenza High Dose 2019-02-13 Completed Unive rsity of 00:00:00 [facility] Influenza High Dose 2019-02-13 Completed Unive rsity of 00:00:00 [facility] Influenza High Dose 2019-02-13 Completed Unive rsity of 00:00:00 [facility] Influenza Hd 2019-02-13 Completed Art Colle ge 00:00:00 of Medicine Influenza Hd 2019-02-13 Completed [facility] Colle ge 00:00:00 of Medicine TDAP 2017-11-10 Completed University of 00:00:00 [facility] TDAP 2017-11-10 Completed University of 00:00:00 [facility] TDAP 2017-11-10 Completed University of 00:00:00 [facility] TDAP 2017-11-10 Completed University of 00:00:00 [facility] [place] [facility] TDAP 2017-11-10 Completed University of 00:00:00 [facility] [place] [facility] TDAP 2017-11-10 Completed University of 00:00:00 [facility] TDAP 2017-11-10 Completed University of 00:00:00 [facility] [place] [facility] TDAP 2017-11-10 Completed University of 00:00:00 [facility] [place] [facility] TDAP 2017-11-10 Completed University of 00:00:00 [facility] TDAP 2017-11-10 Completed University of 00:00:00 [facility] TDAP 2017-11-10 Completed University of 00:00:00 [facility] TDAP 2017-11-10 Completed University of 00:00:00 [facility] TDAP 2017-11-10 Completed University of 00:00:00 [facility] [place] [facility] TDAP 2017-11-10 Completed University of 00:00:00 [facility] [place] [facility] TDAP 2017-11-10 Completed University of 00:00:00 [facility] [place] [facility] TDAP 2017-11-10 Completed University of 00:00:00 [facility] TDAP 2017-11-10 Completed University of 00:00:00 [facility] TDAP 2017-11-10 Completed University of 00:00:00 [facility] TDAP 2017-11-10 Completed University of 00:00:00 [facility] TDAP 2017-11-10 Completed University of 00:00:00 [facility] [place] [facility] TDAP 2017-11-10 Completed University of 00:00:00 [facility] TDAP 2017-11-10 Completed University of 00:00:00 [facility] TDAP 2017-11-10 Completed University of 00:00:00 [facility] TDAP 2017-11-10 Completed University of 00:00:00 [facility] 2017-11-10 Completed [facility] 00:00:00 of Medicine ap 2017-11-10 Completed [facility] 00:00:00 of Medicine Pneumococcal 2017-06-09 Completed University o f Polysaccharide, 00:00:00 [place] [facility] ical PPSV23 (PNEUMOVAX) Branch Pneumococcal 2017-06-09 [...] ical PPSV23 (PNEUMOVAX) Branch Pneumococcal 2017-06-09 Completed [facility] Colle ge Polysaccharide 00:00:00 of Medicin e Pneumococcal 2017-06-09 Completed [facility] Colle ge Polysaccharide 00:00:00 of Medicin e Influenza High Dose 2016-11-14 Completed Unive rsity of 00:00:00 [place] [facility] Influenza High Dose 2016-11-14 Completed Unive rsity of 00:00:00 [place] [facility] Influenza High Dose 2016-11-14 Completed Unive rsity of 00:00:00 [place] [facility] Influenza High Dose 2016-11-14 Completed Unive rsity of 00:00:00 [place] [facility] Influenza High Dose 2016-11-14 Completed Unive rsity of 00:00:00 [place] [facility] Influenza High Dose 2016-11-14 Completed Unive rsity of 00:00:00 [place] [facility] Influenza High Dose 2016-11-14 Completed Unive rsity of 00:00:00 [place] [facility] Influenza High Dose 2016-11-14 Completed Unive rsity of 00:00:00 [facility] [place] [facility] Influenza High Dose 2016-11-14 Completed Unive rsity of 00:00:00 [place] [facility] Influenza High Dose 2016-11-14 Completed Unive rsity of 00:00:00 [place] [facility] Influenza High Dose 2016-11-14 Completed Unive rsity of 00:00:00 [place] [facility] Influenza High Dose 2016-11-14 Completed Unive rsity of 00:00:00 [place] [facility] Influenza High Dose 2016-11-14 Completed Unive rsity of 00:00:00 [place] [facility] Influenza High Dose 2016-11-14 Completed Unive rsity of 00:00:00 [place] [facility] Influenza High Dose 2016-11-14 Completed Unive rsity of 00:00:00 [place] [facility] Influenza High Dose 2016-11-14 Completed Unive rsity of 00:00:00 [place] [facility] Influenza High Dose 2016-11-14 Completed Unive rsity of 00:00:00 [place] [facility] Influenza High Dose 2016-11-14 Completed Unive rsity of 00:00:00 [place] [facility] Influenza High Dose 2016-11-14 Completed Unive rsity of 00:00:00 [place] [facility] Influenza High Dose 2016-11-14 Completed Unive rsity of 00:00:00 [place] [facility] Influenza High Dose 2016-11-14 Completed Unive rsity of 00:00:00 [place] [facility] Influenza High Dose 2016-11-14 Completed Unive rsity of 00:00:00 [place] [facility] Influenza High Dose 2016-11-14 Completed Unive rsity of 00:00:00 [facility] Influenza High Dose 2016-11-14 Completed Unive rsity of 00:00:00 [facility] [place] [facility] Influenza Hd 2016-11-14 Completed Art Colle ge 00:00:00 of Medicine Influenza Hd 2016-11-14 Completed [facility] Colle ge 00:00:00 of Medicine Vital Signs Vital Name Observation Time Observation Value Comments Source HEIGHT 2019-07-08 00:00:00 147.3 cm WEIGHT 2019-07-08 00:00:00 57.743 kg Systolic blood 2022-02-25 23:37:00 131 mm[Hg] Univer sity of pressure [facility] Diastolic blood 2022-02-25 23:37:00 85 mm[Hg] Unive rsity of pressure [facility] Heart rate 2022-02-25 23:37:00 70 /min [facility] Body temperature 2022-02-25 23:37:00 36.83 Monique Univ ersity of [facility] Respiratory rate 2022-02-25 23:37:00 18 /min Univ ersity of [facility] Body height 2022-02-25 23:37:00 157.5 cm [facility] Body weight 2022-02-25 23:37:00 58.968 kg [facility] BMI 2022-02-25 23:37:00 23.78 kg/m2 [facility] Oxygen saturation in 2022-02-25 23:37:00 99 /min [facility] Arterial blood by [facility] Pulse oximetry Branch Systolic blood 2022-01-21 21:34:00 133 mm[Hg] Univer sity of pressure [facility] Branch Diastolic blood 2022-01-21 21:34:00 75 mm[Hg] Unive rsity of pressure [facility] Heart rate 2022-01-21 21:34:00 80 /min [facility]i [facility] Body temperature 2022-01-21 21:34:00 36.5 Monique Univ ers[facility] Body height 2022-01-21 21:34:00 144.8 cm [facility]i [facility] Body weight 2022-01-21 21:34:00 62.596 kg [facility]i [facility] BMI 2022-01-21 21:34:00 29.86 kg/m2 [facility] Oxygen saturation in 2022-01-21 21:34:00 96 /min [facility] blood by [facility] Pulse oximetry Branch Systolic blood 2021-12-24 20:33:00 135 mm[Hg] Univer [facility]ity [facility] Diastolic blood 2021-12-24 20:33:00 65 mm[Hg] Unive rsity of pressure [facility] Heart rate 2021-12-24 20:33:00 73 /min [facility] Body temperature 2021-12-24 20:33:00 36.56 Monique [facility] Body height 2021-12-24 20:33:00 144.8 cm [facility] Body weight 2021-12-24 20:33:00 62.596 kg [facility] BMI 2021-12-24 20:33:00 29.86 kg/m2 [facility] Oxygen saturation in 2021-12-24 20:33:00 96 /min University of Arterial blood by [facility] angelica Pulse oximetry Branch Systolic blood 2021-12-03 18:46:00 148 mm[Hg] Univer [facility]ity of [facility] Diastolic blood 2021-12-03 18:46:00 70 mm[Hg] Unive rsity of pressure [facility] Heart rate 2021-12-03 18:45:00 97 /min [facility] Body temperature 2021-12-03 18:45:00 37.33 Monique [facility] Body height 2021-12-03 18:45:00 144.8 cm [facility] Body weight 2021-12-03 18:45:00 62.143 kg [facility] BMI 2021-12-03 18:45:00 29.65 kg/m2 [facility] Oxygen saturation in 2021-12-03 18:45:00 96 /min [facility]ial blood by [facility] Pulse oximetry Branch Systolic blood 2021-11-26 20:46:00 158 mm[Hg] Univer [facility]ity of [facility] Diastolic blood 2021-11-26 20:46:00 72 mm[Hg] Unive rsity of pressure [facility] Heart rate 2021-11-26 20:46:00 98 /min [facility] Body height 2021-11-26 20:46:00 160 cm [facility] Body weight 2021-11-26 20:46:00 61.689 kg [facility] BMI 2021-11-26 20:46:00 24.09 kg/m2 [facility] Systolic blood 2021-11-12 19:46:00 132 mm[Hg] [facility] Medicine Diastolic blood 2021-11-12 19:46:00 57 mm[Hg] [facility] Medicine Heart rate 2021-11-12 19:46:00 78 /min [facility] Body temperature 2021-11-12 19:46:00 36.67 Monique [facility] Respiratory rate 2021-11-12 19:46:00 16 /min [facility] Body height 2021-11-12 19:46:00 160 cm [facility] Body weight 2021-11-12 19:46:00 61.689 kg [facility] BMI 2021-11-12 19:46:00 24.09 kg/m2 [facility] Oxygen saturation in 2021-11-12 19:46:00 96 /min [facility] Arterial blood by [facility] Pulse oximetry Systolic blood 2021-11-02 18:10:00 152 mm[Hg] Univer sity of pressure [facility] Diastolic blood 2021-11-02 18:10:00 73 mm[Hg] Unive rsity of pressure [facility] Heart rate 2021-11-02 18:10:00 83 /min [facility] Body height 2021-11-02 18:10:00 160 cm [facility] Body weight 2021-11-02 18:10:00 61.689 kg [facility] BMI 2021-11-02 18:10:00 24.09 kg/m2 [facility] Oxygen saturation in 2021-11-02 18:10:00 95 /min University of Arterial blood by [facility] Pulse oximetry Branch Systolic blood 2021-11-01 15:17:00 155 mm[Hg] [facility] pressure Medicine Diastolic blood 2021-11-01 15:17:00 70 mm[Hg] [facility] Medicine Heart rate 2021-11-01 15:17:00 80 /min [facility] Body height 2021-11-01 15:17:00 160 cm [facility] Body weight 2021-11-01 15:17:00 58.968 kg [facility] BMI 2021-11-01 15:17:00 23.03 kg/m2 [facility] Systolic blood 2021-10-25 20:11:00 138 mm[Hg] Univer sity of pressure [facility] Diastolic blood 2021-10-25 20:11:00 64 mm[Hg] Unive rsity of pressure [facility] Heart rate 2021-10-25 20:11:00 64 /min [facility] Body temperature 2021-10-25 20:11:00 36.5 Monique [facility] Body height 2021-10-25 20:11:00 160 cm [facility] Body weight 2021-10-25 20:11:00 61.689 kg [facility] BMI 2021-10-25 20:11:00 24.09 kg/m2 [facility] Oxygen saturation in 2021-10-25 20:11:00 96 /min University Arterial blood by [facility] Pulse oximetry Branch Systolic blood 2021-05-03 15:25:00 121 mm[Hg] [facility] pressure Medicine Diastolic blood 2021-05-03 15:25:00 65 mm[Hg] [facility] pressure Medicine Heart rate 2021-05-03 15:25:00 88 /min [facility] Systolic blood 2020-12-23 21:48:00 137 mm[Hg] [facility] pressure Medicine Diastolic blood 2020-12-23 21:48:00 69 mm[Hg] [facility] Medicine Heart rate 2020-12-23 21:48:00 73 /min [facility] of Medicine Body temperature 2020-12-23 21:48:00 36.83 Monique [facility] Respiratory rate 2020-12-23 21:48:00 15 /min [facility] Body height 2020-12-23 21:48:00 162.6 cm [facility] Body weight 2020-12-23 21:48:00 58.968 kg [facility] of [facility] BMI 2020-12-23 21:48:00 22.31 kg/m2 [facility] of Medicine Systolic blood 2020-05-04 15:57:00 131 mm[Hg] [facility] pressure Medicine Diastolic blood 2020-05-04 15:57:00 60 mm[Hg] [facility] Medicine Heart rate 2020-05-04 15:57:00 67 /min [facility] of Medicine Respiratory rate 2020-05-04 15:57:00 18 /min [facility] Body height 2020-05-04 15:57:00 147.3 cm [facility] Body weight 2020-05-04 15:57:00 58.514 kg [facility] BMI 2020-05-04 15:57:00 26.96 kg/m2 [facility] of Medicine Systolic blood 2020-01-06 16:58:00 146 mm[Hg] [facility] pressure Medicine Diastolic blood 2020-01-06 16:58:00 71 mm[Hg] [facility] pressure Medicine Heart rate 2020-01-06 16:58:00 88 /min [facility] of Medicine Body temperature 2020-01-06 16:58:00 36.44 Monique [facility] Respiratory rate 2020-01-06 16:58:00 16 /min [facility] Body height 2020-01-06 16:58:00 144.8 cm [facility] Body weight 2020-01-06 16:58:00 58.968 kg [facility] of Medicine BMI 2020-01-06 16:58:00 28.13 kg/m2 [facility] of Medicine Systolic blood 2020-01-06 16:58:00 146 mm[Hg] [facility] pressure Medicine Diastolic blood 2020-01-06 16:58:00 71 mm[Hg] [facility] pressure Medicine Heart rate 2020-01-06 16:58:00 88 /min [facility] Body temperature 2020-01-06 16:58:00 36.44 Monique [facility] or [facility] Respiratory rate 2020-01-06 16:58:00 16 /min [facility] Body height 2020-01-06 16:58:00 144.8 cm [facility] Body weight 2020-01-06 16:58:00 58.968 kg [facility] BMI 2020-01-06 16:58:00 28.13 kg/m2 [facility] Systolic blood 2019-10-07 14:05:00 127 mm[Hg] [facility] of pressure Medicine Diastolic blood 2019-10-07 14:05:00 67 mm[Hg] [facility] pressure Medicine Heart rate 2019-10-07 14:05:00 70 /min [facility] Body temperature 2019-10-07 14:05:00 36.39 Monique [facility] or [facility] Respiratory rate 2019-10-07 14:05:00 16 /min [facility] Body height 2019-10-07 14:05:00 162.6 cm [facility] Medicine Body weight 2019-10-07 14:05:00 58.968 kg [facility] BMI 2019-10-07 14:05:00 22.31 [facility]m2 [facility] Systolic blood 2019-10-07 14:05:00 127 mm[Hg] [facility] of pressure Medicine Diastolic blood 2019-10-07 14:05:00 67 mm[Hg] [facility] of pressure Medicine Heart rate 2019-10-07 14:05:00 70 /min [facility] Body temperature 2019-10-07 14:05:00 36.39 Monique [facility] or [facility] Respiratory rate 2019-10-07 14:05:00 16 /min [facility] Body height 2019-10-07 14:05:00 162.6 cm [facility] Body weight 2019-10-07 14:05:00 58.968 kg [facility] BMI 2019-10-07 14:05:00 22.31 kg/m2 [facility] HEIGHT 2019-07-08 00:00:00 147.3 cm WEIGHT 2019-07-08 00:00:00 57.743 kg pulse rate 2019-07-01 08:14:01 80 /min [facility], 2019-07-01 08:14:01 71 mm[Hg] [facility] diastolic Health blood pressure, 2019-07-01 08:14:01 171 mm[Hg] [facility] systolic Health pulse rate 2019-06-25 09:35:00 76 /min [facility], 2019-06-25 09:35:00 77 mm[Hg] [facility] diastolic Health blood pressure, 2019-06-25 09:35:00 153 mm[Hg] [facility] systolic Health Procedures Procedure Date / Time Performing Clinician Source Performed REFERRAL- 2022-02-23 06:01:00 [facility] REQUEST/RESPONSE Name Medical Branch FLU 2021-12-24 21:05:18 Chary Donald [facility] VACC([id number]),65+YR,0. Medical Branch 5 ML,IM,ADJUVANTED,QUAD([place] UAD) MR BRAIN WO CONTRAST 2021-11-19 15:41:00 [facility] 2021-11-18 05:01:00 Doctor Unassigned, No [facility] RECORDS Name Medical Branch COMPREHENSIVE METABOLIC 2021-11-12 20:56:00 Italia Preston [facility] HEMOGLOBIN A1C 2021-11-12 20:56:00 Italia Preston [facility] CBC W/AUTO DIFF WITH 2021-11-12 20:56:00 Italia Preston [facility] THYROID CASCADE PROFILE 2021-11-12 20:56:00 Italia Preston [facility] COMPREHENSIVE METABOLIC 2021-11-12 15:56:00 [facility] HEMOGLOBIN A1C 2021-11-12 15:56:00 [facility] CBC W/AUTO DIFF WITH 2021-11-12 15:56:00 [facility] THYROID CASCADE PROFILE 2021-11-12 15:56:00 [facility] HANDICAPPED PLACARD 2021-11-12 15:45:36 [facility] EXTERNAL PROVIDER 2021-11-01 05:01:00 Doctor Unassigned, No [facility] RECORDS Name Medical Branch POCT URINALYSIS DIPSTICK 2021-11-01 00:00:00 Keerthi Cuenca [facility] AUTHORIZATION TO RELEASE 2021-10-25 05:01:00 Doctor Unassigned, No [facility] PHI TO [facility] Name Medical Branch AMB REF TO UROLOGY 2021-05-03 10:53:33 [facility]idy of [facility] POCT URINALYSIS DIPSTICK 2020-12-23 00:00:00 Keerthi Cuenca [facility] POCT URINALYSIS DIPSTICK 2020-12-23 00:00:00 [facility] POCT URINALYSIS DIPSTICK 2020-01-06 00:00:00 Keerthi Cuenca [facility] BASIC METABOLIC PANEL 2019-10-07 14:32:00 Keerthi Cuenca [facility] MAGNESIUM 2019-10-07 14:32:00 Keerthi Cuenca [facility] URIC ACID 2019-10-07 14:32:00 Keerthi Cuenca [facility] Plan of Care Planned Activity Planned [...] (2 - Td or Tdap)] Future Scheduled 2022-02-[address] [facility] Test 00:00:00 (12+) [code = Medical Center DEPRESSION SCREENING (12+)] Future Scheduled 2022-02-13 FALLS RISK SCREENING [facility] Test 00:00:00 [code = FALLS RISK Medical C enter SCREENING] Future Scheduled 2021-11-15 Diabetic foot [employer] Test 19:39:46 examination of Medicine (regime/therapy) [code = 415116874] Future Scheduled 2021-11-15 ANNUAL DIABETIC [facility] Test 19:39:46 RETINOPATHY of Medicine SCREENING [code = ANNUAL DIABETIC RETINOPATHY SCREENING] Future Scheduled 2021-11-15 ZOSTER VACCINE (1 of [place] [employer] Test 19:39:46 2) [code = ZOSTER of Medicin e VACCINE (1 of 2)] Future Scheduled 2021-11-15 Screening for [facility] Col [facility] Test 19:39:46 osteoporosis of Medicine (procedure) [code = [id number]] Future Scheduled 2021-11-15 Pneumococcal 65+ (2 [employer] Test 19:39:46 - PCV) [code = of Medicine Pneumococcal 65+ (2 - PCV)] Future Scheduled 2021-11-15 MEDICARE AWV [facility] [employer] [employer] Test 19:39:46 (Initial) [code = of Medicin e MEDICARE AWV (Initial)] Future Scheduled 2021-11-15 COVID-19 Vaccine (2 [employer] Test 19:39:46 - Moderna series) of Medicin e [code = COVID-19 Vaccine (2 - Moderna series)] Future Scheduled 2021-11-15 FLU VACCINE > 6 [facility] Test 19:39:46 MONTHS [code = FLU of Medici ne VACCINE > 6 MONTHS] Future Scheduled 2021-11-15 Hemoglobin A1c [facility] Test 19:39:46 measurement of Medicine (procedure) [code = [id number]] Future Scheduled 2021-11-15 FALL SCREEN [code = [employer] Test 19:39:46 FALL SCREEN] of Medicine Future Scheduled 2021-11-15 TETANUS SHOT (ADULT) [place] [employer] Test 19:39:46 [code = TETANUS SHOT of Medi cine (ADULT)] Future Scheduled 2021-11-14 Diabetic foot [facility] Test 02:33:41 examination of Medicine (regime/therapy) [code = [id number]] Future Scheduled 2021-11-14 ANNUAL DIABETIC [facility] Test 02:33:41 RETINOPATHY of Medicine SCREENING [code = ANNUAL DIABETIC RETINOPATHY SCREENING] Future Scheduled 2021-11-14 ZOSTER VACCINE (1 of [place] [employer] Test 02:33:41 2) [code = ZOSTER of Medicin e VACCINE (1 of 2)] Future Scheduled 2021-11-14 Screening for [facility] Test 02:33:41 osteoporosis of Medicine (procedure) [code = [id number]] Future Scheduled 2021-11-14 Pneumococcal 65+ (2 [employer] Test 02:33:41 - PCV) [code = of Medicine Pneumococcal 65+ (2 - PCV)] Future Scheduled 2021-11-14 MEDICARE AWV [facility] Kristine [employer]ge Test 02:33:41 (Initial) [code = of Medicin e MEDICARE AWV (Initial)] Future Scheduled 2021-11-14 COVID-19 Vaccine (2 [employer] Test 02:33:41 - Moderna series) of Medicin e [code = COVID-19 Vaccine (2 - Moderna series)] Future Scheduled 2021-11-14 FLU VACCINE > 6 [facility] Test 02:33:41 MONTHS [code = FLU of Medici ne VACCINE > 6 MONTHS] Future Scheduled 2021-11-14 Hemoglobin A1c [facility] Test 02:33:41 measurement of Medicine (procedure) [code = [id number]] Future Scheduled 2021-11-14 FALL SCREEN [code = [employer] Test 02:33:41 FALL SCREEN] of Medicine Future Scheduled 2021-11-14 TETANUS SHOT (ADULT) [place] [employer] Test 02:33:41 [code = TETANUS SHOT of Medi cine (ADULT)] Future Scheduled 2021-11-12 HANDICAPPED PLACARD Ordered: [employer] Test 15:45:36 [code = NOCPT] 11/12/2021 of Medicine Future Scheduled 2021-10-[address] [...] Future Scheduled 2021-05-04 ZOSTER VACCINE (1 of [place] [employer] Test 15:51:29 2) [code = ZOSTER of Medicin e VACCINE (1 of 2)] Future Scheduled 2021-05-04 Screening for [facility] Test 15:51:29 osteoporosis of Medicine (procedure) [code = [id number]] Future Scheduled 2021-05-04 Pneumococcal 65+ (1 [employer] Test 15:51:29 of 1 - PPSV23) [code of Medi cine = Pneumococcal 65+ (1 of 1 - PPSV23)] Future Scheduled 2021-05-04 MEDICARE AWV [facility] Kristine ege Test 15:51:29 (Initial) [code = of Medicin e MEDICARE AWV (Initial)] Future Scheduled 2021-05-04 FLU VACCINE > 6 [facility] Test 15:51:29 MONTHS [code = FLU of Medici ne VACCINE > 6 MONTHS] Future Scheduled 2021-05-04 COVID-19 Vaccine (2 [employer] Test 15:51:29 - Moderna 3-dose of Medicine series) [code = COVID-19 Vaccine (2 - Moderna 3-dose series)] Future Scheduled 2021-05-04 FALL SCREEN [code = [employer] Test 15:51:29 FALL SCREEN] of Medicine Future Scheduled 2021-05-04 TETANUS SHOT (ADULT) [place] [employer] Test 15:51:29 [code = TETANUS SHOT of Medi cine (ADULT)] Future Scheduled 2021-05-04 US RENAL BILATERAL Expected: [employer] Test 00:00:00 [code = 48082] 05/04/2021, of Medicine Expires: 05/04/2021 Future Scheduled [...] SCREENING] Future Scheduled 2021-01-03 COVID-19 Vaccine (1) [place] [employer] Test 08:34:34 [code = COVID-19 of Medicine Vaccine (1)] Future Scheduled 2021-01-03 ZOSTER VACCINE (1 of [place] [employer] Test 08:34:34 2) [code = ZOSTER of Medicin e VACCINE (1 of 2)] Future Scheduled 2021-01-03 Screening for [facility] Col [facility]ge Test 08:34:34 osteoporosis of Medicine (procedure) [code = [id number]] Future Scheduled 2021-01-03 Pneumococcal 65+ (1 [employer] Test 08:34:34 of 1 - PPSV23) [code of Medi cine = Pneumococcal 65+ (1 of 1 - PPSV23)] Future Scheduled 2021-01-03 MEDICARE AWV [facility] Kristine ege Test 08:34:34 (Initial) [code = of Medicin e MEDICARE AWV (Initial)] Future Scheduled 2021-01-03 FLU VACCINE > 6 [facility] Test 08:34:34 MONTHS [code = FLU of Medici ne VACCINE > 6 MONTHS] Future Scheduled 2021-01-03 FALL SCREEN [code = [facility] Test 08:34:34 FALL SCREEN] of Medicine Future Scheduled 2021-01-03 TETANUS SHOT (ADULT) [facility] Test 08:34:34 [code = TETANUS SHOT of Medi cine (ADULT)] Future Scheduled 2020-10-[address] [facility] Test 00:00:00 (#1) [code = Medical Center INFLUENZA VACCINE (#1)] Diagnostic Test 2020-07-11 US RENAL BILATERAL Expected: [facility] Pending 00:00:00 [code = 03156] 07/11/2020, of Medicine Expires: 01/11/2021 Future Scheduled 2020-07-[address] [facility] Test 00:00:00 Counseling and Medical Cente r Screening (12+) [code = Tobacco Cessation Counseling and Screening (12+)] Future Scheduled 2020-07-[address] [facility] Test 00:00:00 [facility] r Screening (12+) [code = Tobacco Cessation Counseling and Screening (12+)] Future Scheduled 2020-05-[address] [...] Medical Marilyn ter VACCINE (1)] Future Scheduled 1936 COVID-[address] [facility] Test 00:00:00 (#1) [code = Medical Center COVID-19 VACCINE (#1)] Future Scheduled 1936 COVID-[address] [facility] Test 00:00:00 (#1) [code = [facility] COVID-19 VACCINE (#1)] Future Scheduled 1936 COVID-[address] [facility] Test 00:00:00 (#1) [code = Medical Center COVID-19 VACCINE (#1)] Future Scheduled 1936 COVID-[address] [facility] Test 00:00:00 (#1) [code = [facility] COVID-19 VACCINE (#1)] Future Scheduled 1936 DXA SCAN [code = DXA [facility] Test 00:00:00 SCAN] [facility] Future Scheduled 1936 DXA SCAN [code = DXA [facility] Test 00:00:00 SCAN] [facility] Future Scheduled 1936 DXA SCAN [code = DXA [facility] Test 00:00:00 SCAN] [facility] Future Scheduled 1936 DXA SCAN [code = DXA [facility] Test 00:00:00 SCAN] [facility] Future Scheduled PTH,INTACT,WITH Ordered: [facility] Test CALCIUM,PO4,CREAT 10/07/2019 of Medicin e [code = NOCPT] Future Scheduled TETANUS SHOT (ADULT) [facility] Test [code = TETANUS SHOT of Medi cine (ADULT)] Future Scheduled ZOSTER VACCINE (1 of [facility] Test 2) [code = ZOSTER of Medicin e VACCINE (1 of 2)] Future Scheduled OSTEOPOROSIS [facility] Kristine ege Test SCREENING [code = of Medicin e OSTEOPOROSIS SCREENING] Future Scheduled MEDICARE AWV [facility] Kristine ege Test (Initial) [code = of Medicin e MEDICARE AWV (Initial)] Future Scheduled FLU VACCINE > 6 [facility] C [facility] Test MONTHS [code = FLU of Medici ne VACCINE > 6 MONTHS] Future Scheduled FALL SCREEN [code = [facility] Test FALL SCREEN] of Medicine Future Scheduled BMI FOLLOW UP PLAN [facility] College Test [code = BMI FOLLOW of Medici ne UP PLAN] Future Scheduled ZOSTER VACCINE (1 of [facility] Test 2) [code = ZOSTER of Medicin e VACCINE (1 of 2)] Future Scheduled OSTEOPOROSIS [facility] Kristine ege Test SCREENING [code = of Medicin e OSTEOPOROSIS SCREENING] Future Scheduled MEDICARE IPPE [facility] Col [facility]ge Test (WELCOME TO of Medicine MEDICARE) [code = MEDICARE IPPE (WELCOME TO MEDICARE)] Future Scheduled FLU VACCINE > 6 [facility] C [facility]lege Test MONTHS [code = FLU of Medici ne VACCINE > 6 MONTHS] Future Scheduled FALL SCREEN [code = [employer] [facility] FALL SCREEN] of Medicine Future Scheduled TETANUS SHOT (ADULT) [place] [employer] Test [code = TETANUS SHOT of Medi cine (ADULT)] Future Scheduled COVID-19 Vaccine (1) [place] [employer] Test [code = COVID-19 of Medicine Vaccine (1)] Future Scheduled BMI FOLLOW UP PLAN [employer] Test [code = BMI FOLLOW of Medici ne UP PLAN] Future Scheduled ZOSTER VACCINE (1 of [place] [employer] Test 2) [code = ZOSTER of Medicin e VACCINE (1 of 2)] Future Scheduled Screening for [facility] Col lege Test osteoporosis of Medicine (procedure) [code = [id number]] Future Scheduled MEDICARE IPPE [facility] [employer] Test (WELCOME TO of Medicine MEDICARE) [code = MEDICARE IPPE (WELCOME TO MEDICARE)] Future Scheduled FLU VACCINE > 6 Art C [facility]lege Test MONTHS [code = FLU of Medici ne VACCINE > 6 MONTHS] Future Scheduled FALL SCREEN [code = [employer] [facility] FALL SCREEN] of Medicine Future Scheduled TETANUS SHOT (ADULT) [place] [employer] Test [code = TETANUS SHOT of Medi cine (ADULT)] Encounters Start End Encounter Admission Attending Care Care Encounter Source Date/Time Date/Time Type Type Clinicians Facility Department ID 2020-11-17 Inpatient ER GUILLERMO, [facility] Urology [id number] [facility] 14:52:09 LILIANA 2022-03-25 2022-03-25 Outpatient QI STEVENSON [facility] [id number] [facility] 00:00:00 00:00:00 RENY dias of Medicin e 2022-03-11 2022-03-11 Outpatient Braulio CUNNINGHAM MDDELIA [facility] [id number] Univers 13:40:00 13:40:00 ANGELA collins [facility] 2022-02-25 2022-02-25 Urgent Tamela Lucia [facility] 1.2.840.114 [id number] Univers 17:40:00 18:00:00 Care Unknown, Attending HEALTH 350.1.13.10 ity [facility] 4.2.7.2.686 Kilo as KRZYSZTOF?BLEA [phone] [facility] [address] MEDICAL OFFICE BUILDING 2022-02-25 2022-02-25 Outpatient R REA, [facility] [id number] Univers 17:40:00 17:40:00 TAMELA [facility] 2022-02-25 2022-02-25 [facility] [id number] Univers 14:00:00 14:00:00 [facility] 2022-02-23 2022-02-23 Orders Doctor TIJERINA 1.2.840.114 [id number] Univers 00:00:00 00:00:00 Only Unassigned, MACKENZIE 350.1.13.10 ity of [place] [facility] 4.2.7.2.686 Kilo as [phone] [address] 2022-01-21 2022-01-21 [facility] [id number] Univers 15:40:00 16:34:00 [facility] 2022-01-21 2022-01-21 [facility] 1.2.840.114 [id number] Univers 15:40:00 16:34:00 [facility] HEALTH 350.1.13.10 ity [facility] 4.2.7.2.686 Kilo as KRZYSZTOF?BLEA [phone] [address] MEDICAL OFFICE [facility] 2021-12-31 2021-12-31 Outpatient [facility] [id number] Univers 11:20:00 11:20:00 [facility] 2021-12-24 2021-12-24 [facility] [id number] Univers 14:30:00 15:49:08 CHARY [facility] 2021-12-24 2021-12-24 [facility] 1.2.840.114 [id number] Univers 14:30:00 15:49:08 Visit Chary A HEALTH 350.1.13.10 i ty of [place] 4.2.7.2.686 Kilo as KRZYSZTOF?BLEA [phone] Nv salvatore ESTRADA [address] [place] [address] MEDICAL OFFICE [facility] 2021-12-23 2021-12-23 Abstract [facility] 1.2.840.114 [id number] Univers 00:00:00 00:00:00 [facility] 350.1.13.10 ity of [place] 4.2.7.2.686 Kilo as KRZYSZTOF?BLEA [phone] [facility] [address] MEDICAL OFFICE [facility] 2021-12-17 2021-12-17 Outpatient R BETO [facility] [id number] Univers 11:00:00 11:00:00 DANIEL collins o f [facility] 2021-12-17 2021-12-17 Refill [facility] 1.2.840.114 [id number] Univers 00:00:00 00:00:00 [facility] 350.1.13.10 ity of [place] 4.2.7.2.686 Kilo as KRZYSZTOF?BLEA [phone] [address] OFFICE [facility] 2021-12-10 2021-12-10 Outpatient R OCTAVIO [facility] [id number] Univers 09:20:00 09:20:00 [facility] 2021-12-10 2021-12-10 Outpatient R OCTAVIO [facility] [id number] Univers 09:20:00 09:20:00 [facility] 2021-12-03 2021-12-03 Outpatient R OCTAVIO [facility] [id number] Univers 13:40:00 14:38:59 [facility] 2021-12-03 2021-12-03 [facility] 1.2.840.114 [id number] Univers 13:40:00 14:38:59 Visit [facility] 350.1.13.10 ity of [place] 4.2.7.2.686 Kilo as KRZYSZTOF?BLEA [phone] Nv [address] OFFICE [facility] 2021-11-27 2021-11-27 Refill [facility] 1.2.840.114 [id number] Univers 00:00:00 00:00:00 [facility] 350.1.13.10 ity of [place] 4.2.7.2.686 Kiol as KRZYSZTOF?BLEA [phone] [facility] [address] MEDICAL OFFICE [facility] 2021-11-26 2021-11-26 Outpatient WON SALDIVAR [facility] [id number] Univers 15:40:00 16:24:04 WON MATT [facility] 2021-11-26 2021-11-26 Office [facility] 1.2.840.114 [id number] Univers 15:40:00 16:24:04 Visit Won Serra [facility] 350.1.13.10 ity of [facility] 4.2.7.2.686 Kilo as KRZYSZTOF?BLEA [phone] [facility] 0[address] [facility] OFFICE [facility] 2021-11-19 2021-11-19 Outpatient Braulio HAGERWON Dias [facility] [id number] Univers 09:57:12 23:59:00 WON MATT [facility] 2021-11-19 2021-11-19 Hospital [facility] 1.2.944.476 [id number] Univers 09:57:12 23:59:00 Encounter Won [facility] 350.1.13.10 ity of [place].2.7.2.[place] [phone] [facility] angelica [address] 2021-11-18 2021-11-18 Orders Doctor LILLIANA 1.2.840.114 [id number] Univers 00:00:00 00:00:00 Only Unassigned, MACKENZIE 350.1.13.10 ity of [place] [facility] 4.2.7.2.686 Kilo as [phone] [facility] angelica [address] 2021-11-12 2021-11-12 Office MOHAN [facility] 1.2.840.114 [id number] [facility] 14:36:20 15:29:10 Visit , ITALIA AMBULATOR 350.1.13.21 College Y 0.2.7.2.686 of [id number] [facility] raimundo 800 e 2021-11-09 2021-11-09 Outpatient R BETO [facility] [id number] Univers 13:00:00 13:00:00 DANIEL collins o f [facility] 2021-11-05 2021-11-05 Outpatient R OCTAVIO [facility] [id number] Univers 10:40:00 10:40:00 ANGELA karen [facility] 2021-11-02 2021-11-02 Outpatient R WON MATT [facility] [id number] Univers 13:00:00 14:14:42 VERNELLWON Dias karen [facility] 2021-11-02 2021-11-02 Office Vernell [facility] 1.2.840.114 [id number] Univers 13:00:00 14:14:42 Visit Won [facility] 350.1.13.10 ity of [place] 4.2.7.2.686 Kilo as KRZYSZTOF?BLEA [phone] [address] MEDICAL OFFICE BUILDING 2021-11-01 2021-11-01 Office Link, [facility] 1.2.840.114 [id number] [facility] 09:45:00 10:00:00 Visit Keerthi Dias AMBULATOR 350.1.13.21 College Y 0.2.7.2.686 of [id number] [facility] 300 e 2021-11-01 2021-11-01 Orders Doctor LILLIANA 1.2.840.114 [id number] Univers 00:00:00 00:00:00 Only Unassigned, MACKENZIE 350.1.13.10 ity of [place] [facility] 4.2.7.2.686 Kilo as [phone] [place] [address] [address] 2021-10-28 2021-10-28 Telephone [facility] 1.2.292.514 [id number] Univers 00:00:00 00:00:00 Angela HEALTH 350.1.13.10 ity of [facility] 4.2.7.2.686 Kilo as KRZYSZTOF?BLEA [phone] [facility] [address] MEDICAL OFFICE BUILDING 2021-10-26 2021-10-26 Telephone [facility] 1.2.569.476 [id number] Univers 00:00:00 00:00:00 Angela HEALTH 350.1.13.10 ity of [facility] 4.2.7.2.686 Kilo as KRZYSZTOF?BLEA [phone] [address] MEDICAL OFFICE [facility] 2021-10-25 2021-10-25 Outpatient [facility] [id number] Univers 14:40:00 15:55:58 ANGELA ity of [facility] 2021-10-25 2021-10-25 Office [facility] 1.2.840.114 [id number] Univers 14:40:00 15:55:58 Visit Angela HEALTH 350.1.13.10 ity of [place] 4.2.7.2.686 Kilo as KRZYSZTOF?BLEA [phone] [address] MEDICAL OFFICE [facility] 2021-10-25 2021-10-25 Telephone [facility] 1.2.414.649 [id number] Univers 00:00:00 00:00:00 Angela HEALTH 350.1.13.10 ity of [place] 4.2.7.2.686 Kilo as KRZYSZTOF?BLEA [phone] [address] MEDICAL OFFICE [facility] 2021-10-25 2021-10-25 Orders Doctor LILLIANA 1.2.840.114 [id number] Univers 00:00:00 00:00:00 Only Unassigned, MACKENZIE 350.1.13.10 ity of [place] [facility] 4.2.7.2.686 Kilo as [phone] [address] 2021-10-20 2021-10-20 Telephone [facility] 1.2.636.225 [id number] Univers 00:00:00 00:00:00 Angela HEALTH 350.1.13.10 ity of [facility] 4.2.7.2.686 Kilo as KRZYSZTOF?BLEA [phone] [address] MEDICAL OFFICE [facility] 2021-09-24 2021-09-24 Outpatient [facility] [id number] Univers 08:40:00 08:40:00 ANGELA ity [facility] 2021-09-24 2021-09-24 Outpatient R OCTAVIO, [facility] [id number] Univers 08:30:00 08:30:00 ANGELA collins [facility] 2021-09-17 2021-09-17 Outpatient R WON MATT [facility] [id number] Univers 11:00:00 11:00:00 WON MATT [facility] 2021-09-13 2021-09-13 Telephone [facility] 1.2.738.790 [id number] Univers 00:00:00 00:00:00 Angela HEALTH 350.1.13.10 ity of [place] 4.2.7.2.686 Kilo as KRZYSZTOF?BLEA [phone] [address] MEDICAL OFFICE [facility] 2021-09-13 2021-09-13 Orders Doctor LILLIANA 1.2.840.114 [id number] Univers 00:00:00 00:00:00 Only Unassigned, MACKENZIE 350.1.13.10 ity of [place] [facility] 4.2.7.2.686 Kilo as [phone] [address] 2021-09-10 2021-09-10 Outpatient R OCTAVIO [facility] [id number] Univers 16:00:00 17:05:49 ANGELA karen [facility] 2021-09-10 2021-09-10 Office [facility] 1.2.840.114 [id number] Univers 16:00:00 17:05:49 Visit Angela HEALTH 350.1.13.10 ity of [place] 4.2.7.2.686 Kilo as KRZYSZTOF?BLEA [phone] [address] MEDICAL OFFICE [facility] 2021-09-05 2021-09-05 Telephone [facility] 1.2.110.464 [id number] Univers 00:00:00 00:00:00 Chary A HEALTH 350.1.13.10 i ty of [place] 4.2.7.2.686 Kilo as KRZYSZTOF?BLEA [phone] [address] OFFICE [facility] 2021-09-03 2021-09-03 Perioperative Tech Lab, Thom Beaver [facility] 1.2.840.1 14 [id number] Univers 07:45:00 08:09:03 Visit Octavio [facility] 350.1.13.10 ity of [place] 4.2.7.2.686 Kilo as KRZYSZTOF?BLEA [phone] [address] OFFICE [facility] 2021-09-03 2021-09-03 Outpatient R OCTAVIO [facility] [id number] Univers 07:45:00 07:45:00 [facility] 2021-09-02 2021-09-02 Telephone [facility] 1.2.915.123 [id number] Univers 00:00:00 00:00:00 [facility] 350.1.13.10 ity of [place] 4.2.7.2.686 Kilo as KRZYSZTOF?BLEA [phone] [address] 2021-08-27 2021-08-27 Perioperative Tech Lab, Ang - [facility] 1.2.840.1 14 [id number] Univers 15:30:00 15:45:00 Visit Octavio [facility] 350.1.13.10 ity of [place] 4.2.7.2.686 Kilo as KRZYSZTOF?BLEA [phone] [address] OFFICE [facility] 2021-08-27 2021-08-27 Outpatient [facility] [id number] Univers 14:00:00 15:19:02 [facility] 2021-08-27 2021-08-27 Office [facility] 1.2.840.114 [id number] Univers 14:00:00 15:19:02 Visit [facility] 350.1.13.10 ity of [place] 4.2.7.2.686 Kilo as KRZYSZTOF?BLEA [phone] [address] OFFICE [facility] 2021-08-20 2021-08-20 Refill Odilon [facility] 1.2.840.114 [id number] Univers 00:00:00 00:00:00 Chary A HEALTH 350.1.13.10 i ty of [place] 4.2.7.2.686 Kilo as KRZYSZTOF?BLEA [phone] [facility] [address] MEDICAL OFFICE [facility] 2021-07-09 2021-07-09 Outpatient R ODILON [facility] [id number] Univers 16:00:00 17:29:20 CHARY [facility] 2021-07-09 2021-07-09 Office [facility] 1.2.840.114 [id number] Univers 16:00:00 17:29:20 Visit Chary A [facility] 350.1.13.10 i ty of [place] 4.2.7.2.686 Kilo as KRZYSZTOF?BLEA [phone] [facility] [address] MEDICAL OFFICE [facility] 2021-07-09 2021-07-09 Outpatient R ODILON [facility] [id number] Univers 16:00:00 17:29:20 CHARY [facility] 2021-06-09 2021-06-09 Case Rea [facility] 1.2.840.114 [id number] Univers 00:00:00 00:00:00 Management Rania HEALTH 350.1.13.10 ity of [place] 4.2.7.2.686 Kilo as KRZYSZTOF?BLEA [phone] [address] OFFICE [facility] 2021-06-09 2021-06-09 Tapan Mccartney [facility] 1.2.840.114 [id number] Univers 00:00:00 00:00:00 (Out) Ree HEALTH 350.1.13.10 it y of [place] 4.2.7.2.686 Kilo as KRZYSZTOF?BLEA [phone] [address] MEDICAL OFFICE [facility] 2021-06-08 2021-06-08 Laboratory Only, Ang Db Test [facility] 1.2.8 40.114 [id number] Univers 09:15:00 09:30:00 Only Tera Ricks HEALTH 350.1.13.10 ity of [place] 4.2.7.2.686 Kilo as KRZYSZTOF?BLEA [phone] [address] MEDICAL OFFICE [facility] 2021-06-08 2021-06-08 Outpatient R ANDREW [facility] [id number] Univers 09:15:00 09:15:00 TERA [facility] 2021-05-17 2021-05-17 Outpatient R JOEL [facility] [id number] Univers 13:30:00 13:30:00 karina NAYAK paula KALYN [facility] 2021-05-13 2021-05-13 Orders Doctor LILLIANA 1.2.840.114 [id number] Univers 00:00:00 00:00:00 Only Unassigned, MACKENZIE 350.1.13.10 [facility] 4.2.7.2.686 Kilo as [phone] [address] 2021-05-03 2021-05-03 Office LINK, [facility] 1.2.840.114 [id number] [facility] 10:12:54 11:16:44 Visit KEERTHI JAIME 350.1.13.21 College Y 0.2.7.2.686 of [phone] [facility] raimundo 300 e 2021-05-03 2021-05-03 Outpatient BCM [facility] [id number] [facility] 00:00:00 00:00:00 Colleg e of Medicin e 2021-05-03 2021-05-03 Outpatient BCM [facility] [id number] [facility] 00:00:00 00:00:00 Colleg e of Medicin e 2021-05-03 2021-05-03 Telephone [facility] 1.2.033.282 [id number] Univers 00:00:00 00:00:00 Amaya HEALTH 350.1.13.10 it y of [place] 4.2.7.2.686 Kilo as KRZYSZTOF?BLEA [phone] [address] MEDICAL OFFICE [facility] 2021-04-30 2021-04-30 Telephone [facility] 1.2.581.292 [id number] Univers 00:00:00 00:00:00 Gerardo HEALTH 350.1.13.10 it y of [place] 4.2.7.2.686 Kilo as KRZYSZTOF?BLEA [id number] [address] MEDICAL OFFICE [facility] 2021-04-29 2021-04-29 Nurse LILLIANA Jain 1.2.840.114 [id number] Univers 00:00:00 00:00:00 Triage Pamela Roman MACKENZIE 350.1.13.10 it y of [facility] 4.2.7.2.686 Kilo as [phone] [facility] [address] 2021-04-29 2021-04-29 [facility]uthi [facility] 1.2.840.114 [id number] Univers 00:00:00 00:00:00 Wondiful A ROBBINTON 350.1.13.10 ity of [place].7.2.[place] [phone] Nv dical [address] 2021-04-23 2021-04-23 [facility] [id number] Univers 09:00:00 09:00:00 MAUROCHEVY ity o f [facility] 2021-04-14 2021-04-14 [facility] [id number] Univers 09:30:00 09:30:00 WONDIFUL ity o f [facility] 2021-04-14 2021-04-14 [facility] [id number] Univers 09:30:00 09:30:00 WONDIFUL ity o [facility] 2021-04-05 2021-04-05 Outpatient R ARIAN [facility] [id number] Univers 10:30:00 10:30:00 JESSICA ity of [facility] 2021-04-05 2021-04-05 Orders Doctor TIJERINA 1.2.840.114 [id number] Univers 00:00:00 00:00:00 Only Unassigned, MACKENZIE 350.1.13.10 ity of [place] [facility] 4.2.7.2.686 Kilo as [phone] [facility] [address] 2021-03-22 2021-03-22 Out[facility] [id number] Univers 11:30:00 12:40:29 AMAYA ity of [facility] 2021-03-22 2021-03-22 Office [facility] 1.2.840.114 [id number] Univers 11:30:00 12:40:29 Visit Amaya [facility] 350.1.13.10 it y of [place] 4.2.7.2.686 Kilo as KRZYSZTOF?BLEA [phone] [facility] MARIZA[address] OFFICE BUILDING 2021-03-21 2021-03-21 [facility]uthi [facility] 1.2.840.114 [id number] Univers 00:00:00 00:00:00 Wondiful A HEALTH 350.1.13.10 ity of [place] 4.2.7.2.686 Kilo as PROFESSIO [phone] [address] OFFICE [facility] 2021-02-22 2021-02-22 Office Eric, [facility] 1.2.840.114 [id number] Univers 14:30:00 15:00:00 Visit Jessica R Y HEALTH 350.1.13.10 ity of [facility] 4.2.7.2.686 [place] [phone] [address] 2021-02-22 2021-02-22 Outpatient R ARIAN, [facility] [id number] Univers 14:30:00 14:30:00 JESSICA ity [facility] 2021-02-22 2021-02-22 [facility] [id number] Univers 14:30:00 14:30:00 JESSICA ity [facility] 2021-01-25 2021-01-25 [facility]uthi [facility] 1.2.840.114 [id number] Univers 00:00:00 00:00:00 Wondiful A HEALTH 350.1.13.10 ity of [place] 4.2.7.2.686 Kilo as PROFESSIO [id number] [address] OFFICE [facility] 2021-01-21 2021-01-21 [facility]o [facility] 1.2.840.114 [id number] Univers 00:00:00 00:00:00 Management Wondiful A HEALTH 350.1.13.10 ity of [place] 4.2.7.2.686 Kilo as KRZYSZTOF?BLEA [phone] [address] OFFICE BUILDING 2021-01-21 2021-01-21 [facility] 1.2.840.114 [id number] Univers 00:00:00 00:00:00 Management Austin Goyal HEALTH 350.1.13.10 ity of [place] 4.2.7.2.686 Kilo as KRZYSZTOF?BLEA [phone] [facility] [address] MEDICAL OFFICE [facility] 2021-01-20 2021-01-20 Outpatient R TERESITA [facility] [id number] Univers 09:25:28 23:59:00 SENDIL ity of [facility] 2021-01-20 2021-01-20 Hospital Austin Hobson [facility] 1.2.8 40.114 [id number] Univers 09:00:00 23:59:00 Encounter Ceci Lo [place] 350.1.1 3.10 ity of [place] 4.2.7.2.686 [place] [facility] [id number] [address] 2021-01-15 2021-01-15 [facility] [id number] Univers 10:10:00 10:10:00 WONDIFUL ity o f [facility] 2021-01-15 2021-01-15 Imm/Inj Vaccine, Ang Db Cbc Fam [facility] 1. 2.840.114 [id number] Univers 08:47:34 08:57:34 Visit Austin Hobson HEALTH 350.1.13.1 0 ity of [place] 4.2.7.2.686 Kilo as KRZYSZTOF?BLEA [phone] [address] OFFICE [facility] 2021-01-15 2021-01-15 Perioperative Tech Lab, Ang - Db [facility] 1.2.840.1 14 [id number] Univers 08:20:53 08:35:53 Visit Austin Hobson HEALTH 350.1.13.1 0 ity of [place] 4.2.7.2.686 Kilo as KRZYSZTOF?BLEA [phone] [facility] [address] [facility] OFFICE [facility] 2021-01-14 2021-01-14 Office Joce [facility] 1.2.840.114 [id number] Univers 13:02:10 13:52:29 Visit Austin Goyal HEALTH 350.1.13.10 ity of [place] 4.2.7.2.686 Kilo as KRZYSZTOF?BLEA [id number] [address] MEDICAL OFFICE [facility] 2021-01-14 2021-01-14 Outpatient R JOCE [facility] [id number] Univers 13:00:00 13:52:29 WONDIFUL ity o f [facility] 2020-12-23 2021-01-10 Office JESSA [facility] 1.2.840.114 [id number] [facility] 15:05:24 13:24:06 Visit KEERTHI AMBULATOR 350.1.13.21 College Y 0.2.7.2.686 of [id number] [facility] 300 e 2020-12-04 2020-12-04 [facility] 1.2.319.794 [id number] Univers 12:31:25 23:59:00 Encounter Wondiful A [place] 350.1.13.10 ity of [place] 4.2.7.2.[place] [phone] [facility] [address] 2020-12-04 2020-12-04 Out[facility] [id number] Univers 10:15:00 12:44:29 WONDIFUL ity o f [facility] 2020-12-04 2020-12-04 Office [facility] 1.2.840.114 [id number] Univers 10:12:12 12:44:29 Visit Wondiful A HEALTH 350.1.13.10 ity of [place] 4.2.7.2.686 Kilo as KRZYSZTOF?BLEA [phone] [address] OFFICE [facility] 2020-10-16 2020-10-16 Patient [facility] 1.2.840.114 [id number] Univers 00:00:00 00:00:00 Secure Msg [facility] [id number] ity of [place] [id number] [place]ilo as Krzysztof?Blea [phone] [address] Office [facility] 2020-10-13 2020-10-13 Telephone [facility] 1.2.840.114 [id number] Univers 00:00:00 00:00:00 [facility] [id number] ity of [place] [id number] [place] as Krzysztof?Blea [phone] [address] Medical Office Building 2020-10-08 2020-10-08 Patient Doctor LILLIANA 1.2.840.114 [id number] Univers 00:00:00 00:00:00 Secure Msg Unassigned, MACKENZIE [id number] [facility] [id number] Kilo as [phone] [address] 2020-10-08 2020-10-08 Refill [facility] 1.2.840.114 [id number] Univers 00:00:00 00:00:00 [facility] [id number] ity of [place] [id number] Kilo as Krzysztof?Blea [phone] [address] Medical Office [facility] 2020-10-08 2020-10-08 Telephone [facility] 1.2.840.114 [id number] Univers 00:00:00 00:00:00 [facility] [id number] ity of [place] [id number] [place] as Krzysztof?Blea [phone] [address] Medical Office [facility] 2020-10-06 2020-10-06 [facility] [id number] Univers 09:00:00 09:00:00 WONDIFUL ity o f [facility] 2020-10-05 2020-10-05 Office [facility] 1.2.840.114 [id number] Univers 11:08:16 12:09:41 Visit [facility] [id number] ity of [place] [id number] Klio as Krzysztof?Blea [phone] [address] Medical Office [facility] 2020-10-05 2020-10-05 [facility] [id number] Univers 11:15:00 11:15:00 WONDIFUL ity o f [facility] 2020-09-15 2020-09-15 Outpatient R JOCE, [facility] [id number] Univers 14:30:00 14:30:00 WONDIFUL ity o [place] [facility] 2020-08-06 2020-08-06 Outpatient R BETO, [facility] [id number] Univers 00:00:00 00:00:00 DANIEL collins o [place] [facility] 2020-07-20 2020-07-20 Perioperative Tech Lab, Adc Fam Pob I [facility] 1.2. 840.114 [id number] Univers 10:43:24 11:03:24 Visit [facility] [id number] ity of [place] [id number] Kilo as Professio [phone] N[place] dicpr nal [address] [place] [address] One 2020-07-20 2020-07-20 Office [facility] 1.2.840.114 [id number] Univers 09:55:53 10:27:33 Visit Dainel [place] 350.1.13.10 ity of [place] 4[place]2.7.2.[place] Profess[place] [phone] N[place] dicpr nal 9 [facility] 2020-07-20 2020-07-20 Outpatient R BETO, [facility] [id number] Univers 10:00:00 10:00:00 [facility] Center 2020-06-02 2020-06-02 Telephone [facility] 1..840.114 [id number] Univers 00:00:00 00:00:00 [facility] 350.1.13.10 ity of [place] 4.2.7.2.686 [place] Professio [phone] Nv dical nal 044 [facility] One 2020-06-01 2020-06-01 Refill [facility] 1.2.840.114 [id number] Univers 00:00:00 00:00:00 Daniel [place] 350.1.13.10 ity of [place] [phone] Nv dical nal 059 [facility] 2020-05-18 2020-05-18 Orders Doctor LILLIANA 1.2.840.114 [id number] Univers 00:00:00 00:00:00 Only Unassigned, MACKENZIE 350.1.13.10 ity of [place] [facility] 4.2.7.2.686 Kilo as [phone] [facility] 009 [place] 2020-05-04 2020-05-04 Office LINK, [facility] 1.2.840.114 [id number] 34 [facility] 10:43:07 12:09:48 Visit KEERTHI BERTRAMSHANNON 350.1.13.21 College Y 0.2.7.2.686 of [phone] [facility] 300 e 2020-04-29 2020-04-29 Telephone [facility], [facility] 1.2.332.666 [id number] 00:00:00 00:00:00 Daniel [place] 350.1.13.10 [place] 4.2.7.2.686 Professio [phone] [address] 2020-04-29 2020-04-29 Refill [facility] 1.2.840.114 [id number] 00:00:00 00:00:00 Daniel [place] 350.1.13.10 [place] 4.2.7.2.686 Professio [phone] [address] 2020-04-29 2020-04-29 Telephone [facility], [facility] 1.2.335.340 [id number] Univers 00:00:00 00:00:00 Daniel [place] 350.1.13.10 it[place] of [place] [phone] Nv dical nal [address] [place] [address] 2020-04-29 2020-04-29 Refill [facility] 1.2.840.114 [id number] Univers 00:00:00 00:00:00 Qiashayne [place] 350.1.13.10 it[place] of [place] [phone] Nv dical nal 9 [facility] 2020-04-25 2020-04-25 Urgent Provider, [facility] 1.2.476.447 [id number] 5817 10:12:47 10:32:47 Care [facility] 350.1.13.10 Care [place] 4.2.7.2.686 Professio [phone] [place] [address] Office [address] One 2020-04-25 2020-04-25 Urgent Provider, [facility] 1.2.840.114 [id number] [facility] 10:12:47 10:32:47 Care Mine No J Health 350.1.13.10 ity of [place] 4.2.7.2.686 [place] Professio [phone] [address] Office Building One 2020-04-25 2020-04-25 Outpatient R ONEAL [facility] [id number] [facility] 10:20:00 10:20:00 MINE collins o f [facility] 2020-04-15 2020-04-15 Telephone Joce, [facility] 1.2.840.114 [id number] 00:00:00 00:00:00 [facility] 350.1.13.10 [place] 4.2.7.2.686 Professio [phone] [place] [address] Office Building One 2020-04-15 2020-04-15 Telephone [facility] 1.2.840.114 [id number] Univers 00:00:00 00:00:00 [facility] 350.1.13.10 ity of [place] 4.2.7.2.686 [place] Professio [phone] [address] Office Building One 2020-03-07 2020-03-07 Patient Tyler [facility] 1.2.840.114 [id number] 00 00:00:00 00:00:00 Outreach Ethan PRIMARY 350.1.13.10 [place] [facility] 4.2.7.2.686 PAVILLION [phone] [facility] 2020-03-07 2020-03-07 Patient [facility] 1.2.840.114 [id number] Univers 00:00:00 00:00:00 Outreach Ethan PRIMARY 350.1.13.10 i ty of [place].2.[place] PAV[place] [phone] Nv dic[address] 2020-01-16 2020-01-16 Outpatient R JOCE [facility] [id number] [facility] 16:30:00 16:30:00 WONDIFUL ity o f [facility] 2020-01-16 2020-01-16 Telemedici [facility] 1.2.840.114 [id number] 16:09:25 16:24:25 ne Visit [facility] 350.1.13.10 [place] 4.2.7.2.686 Professio [phone] [place] [address] Office [facility] 2020-01-16 2020-01-16 Telemedici [facility] 1.2.840.114 [id number] [facility] 16:09:25 16:24:25 ne Visit [facility] 350.1.13.10 ity of [place] 4.2.7.2.686 [place] Professio [phone] [address] 2020-01-12 2020-01-12 Orders Doctor LILLIANA 1.2.840.114 [id number] 00:00:00 00:00:00 Only Unassigned, MACKENZIE 350.1.13.10 [place] [facility] 4.2.7.2.686 [id number] [facility] 2020-01-12 2020-01-12 Orders Doctor LILLIANA 1.2.840.114 [id number] [facility] 00:00:00 00:00:00 Only Unassigned, MACKENZIE 350.1.13.10 ity of [place] [facility] 4.2.7.2.686 Kilo as [phone] [address] 2020-01-06 2020-01-06 Office Link, [facility] 1.2.840.114 [id number] 10:46:16 11:44:31 Visit Keerthi Dias AMBULATOR 350.1.13.21 Y 0.2.7.2.686 [phone] [facility] 2020-01-06 2020-01-06 Office Link, [facility] 1.2.840.[id number] [place] [address] 10:46:16 11:44:31 Visit Keerthi Dias AMBULATOR 350.1.13.21 College Y 0.2.7.2.686 of [phone] [facility] 300 e 2019-12-16 2019-12-16 Case Joce [facility] 1.2.840.114 [id number] 162 00:00:00 00:00:00 Management [facility] 350.1.13.10 [place] 4.2.7.2.686 Professio [phone] [place] [address] Office Building One 2019-12-16 2019-12-16 Case Joce [facility] 1.2.840.114 [id number] Univers 00:00:00 00:00:00 Management [facility] 350.1.13.10 ity of [place] 4.2.7.2.686 [place] Professio [phone] Nv dical [address] Office Building One 2019-12-12 2019-12-12 Perioperative Tech 1, Adc Lab [facility] 1.2.840.114 [id number] 09:36:54 09:51:54 Visit [place] 350.1.13.10 [place] 4.2.7.2.686 [place] [phone] [facility] 2019-12-12 2019-12-12 Perioperative Tech 1, Adc Lab [facility] 1.2.840.114 [id number] Univers 09:36:54 09:51:54 Visit Austin Hobson [place] 350.1.13. 10 ity of [place].2.[place] [phone] [address] 2019-12-12 2019-12-12 Outpatient R [facility] [id number] Univers 08:30:00 08:30:00 ity of [facility] 2019-12-12 2019-12-12 Telephone [facility] 1.2.840.114 [id number] 00:00:00 00:00:00 [facility] 350.1.13.10 [place] 4.2.7.2.686 Professio [phone] [place] [address] Office Building One 2019-12-12 2019-12-12 Telephone Joce [facility] 1.2.840.114 [id number] Univers 00:00:00 00:00:00 [facility] 350.1.13.10 ity of [place] 4.2.7.2.686 [place] Professio [phone] Nv dic[address] Office [facility] 2019-12-05 2019-12-05 Orders Doctor LILLIANA 1.2.840.114 [id number] 00:00:00 00:00:00 Only Unassigned, MACKENZIE 350.1.13.10 [place] [facility] 4.2.7.2.686 [id number] 009 2019-12-05 2019-12-05 Orders Doctor LILLIANA 1.2.840.114 [id number] Univers 00:00:00 00:00:00 Only Unassigned, MACKENZIE 350.1.13.10 ity of [place] [facility] 4.2.7.2.686 Kilo as [phone] [address] 2019-11-14 2019-11-14 Beto Hobson [facility] 1.2.840.114 [id number] 00:00:00 00:00:00 Management [facility] 350.1.13.10 [place] 4.2.7.2.686 Professio [phone] [place] [address] Office Building One 2019-11-14 2019-11-14 Beto Hobson [facility] 1.2.840.114 [id number] Univers 00:00:00 00:00:00 Management [facility] 350.1.13.10 ity of [place] 4.2.7.2.686 [place] Professio [phone] Nv dicpr nal [address] [place] [address] Office Building One 2019-11-13 2019-11-13 Beto Hobson [facility] 1.2.840.114 [id number] 00:00:00 00:00:00 Management [facility] 350.1.13.10 [place] 4.2.7.2.686 Professio [phone] [place] [address] Office Building One 2019-11-13 2019-11-13 Beto Hobson [facility] 1.2.840.114 [id number] Univers 00:00:00 00:00:00 Management [facility] 350.1.13.10 ity of [place] 4.2.7.2.686 [place] Professio [phone] Nv dicpr nal [address] [place] [address] Office [facility] One 2019-11-08 2019-11-08 Perioperative Tech Lab, [facility] Fam Pob I [facility] 1.2. 840.114 [id number] [facility] 11:16:17 11:26:17 Visit Austin Hobson [facility] 350.1.13.1 0 ity of [place] 4.2.7.2.686 [place] Professio [phone] [address] Office [facility] 2019-11-08 2019-11-08 Office [facility] 1.2.840.114 [id number] 09:44:58 11:00:23 Visit [facility] 350.1.13.10 [place] 4.2.7.2.686 Professio [phone] [address] 2019-11-08 2019-11-08 Office [facility] 1.2.840.114 [id number] [facility] 09:44:58 11:00:23 Visit [facility] 350.1.13.10 ity of [place] 4.2.7.2.686 [place] Professio [phone] [address] 2019-11-08 2019-11-08 Outpatient R JOCE [facility] [id number] Univers 08:45:00 08:45:00 WONDIFUL ity o f [facility] 2019-09-02 2019-11-04 Telemedici [facility] 1.2.840.114 [id number] [facility] 09:09:51 09:25:19 ne Visit Jamilful A [place] 350.1.13.10 ity of [place] [phone] [address] 2019-11-04 2019-11-04 Perioperative Tech Lab, [facility] Fam Pob I [facility] 1.2. 840.114 [id number] Univers 09:02:55 09:12:55 Visit Austin Hobson Health 350.1.13.1 0 ity of [place] 4.2.7.2.686 [place] Professio [phone] [address] Office [facility] 2019-11-04 2019-11-04 Outpatient R JOCE [facility] [id number] Univers 09:00:00 09:00:00 WONDIFUL ity o f [facility] 2019-10-30 2019-10-30 [facility] 1.2.840.114 [id number] Univers 00:00:00 00:00:00 [facility] 350.1.13.10 ity of [place] 4.2.7.2.686 [place] Professio [phone] [address] Office Building One 2019-10-25 2019-10-25 [facility] 1.2.840.114 [id number] Univers 00:00:00 00:00:00 [facility] 350.1.13.10 ity of [place] 4.2.7.2.686 [place] Professio [phone] [address] Office [facility] 2019-10-25 2019-10-25 [facility] 1.2.840.114 [id number] Univers 00:00:00 00:00:00 [facility] 350.1.13.10 ity of [place] 4.2.7.2.686 [place] Professio [phone] [address] Office [facility] 2019-10-07 2019-10-07 Office Link, [facility] 1.2.840.[id number] [place] [address] 08:45:50 10:08:26 Visit Keerthi Dias AMBULATOR 350.1.13.21 College Y 0.2.7.2.686 of [phone] [facility] 300 e 2019-10-07 2019-10-07 Office Link, [facility] 1.2.840.114 [id number] 08:45:50 10:08:26 Visit Keerthi Dias AMBULATOR 350.1.13.21 Y 0.2.7.2.686 [id number] 300 2019-10-07 2019-10-07 Orders Doctor LILLIANA 1.2.840.114 [id number] Univers 00:00:00 00:00:00 Only Unassigned, MACKENZIE 350.1.13.10 ity of [place] [facility] 4.2.7.2.686 Kilo as [phone] [place] [address] [place] 2019-09-30 2019-09-30 Office [facility] 1.2.840.114 [id number] Univers 09:15:37 09:55:50 Visit Daniel [place] 350.1.13.10 ity [facility] [place].2.7.2.[place] [phone] Nv dical nal 059 [facility] 2019-09-30 2019-09-30 Outpatient R BETO, [facility] [id number] Univers 09:40:00 09:40:00 QIANGCHEVY ity o f [facility] 2019-09-02 2019-09-02 Outpatient R JOCE, [facility] [id number] Univers 08:45:00 08:45:00 WONDIFUL ity o f [facility] 2019-08-30 2019-08-30 Telephone LILLIANA Donald 1.2.502.358 [id number] Univers 00:00:00 00:00:00 Chary MANN 350.1.13.10 i ty [facility] 4.2.7.2.686 [place]ilo as [phone] [facility] 019 [place] 2019-08-29 2019-08-29 Laboratory Lab, [facility] Fam Pob I [facility] 1.2. 840.114 [id number] Univers 11:32:55 11:52:55 Only Amaya Arita 350.1.13.10 ity [facility] 4.2.7.2.686 [place] Professio [phone] Nv dical nal 044 [place] Office [facility] 2019-08-29 2019-08-29 Outpatient R LYLA, [facility] [id number] Univers 11:40:00 11:40:00 AMAYA ity of [facility] 2019-08-29 2019-08-29 Urgent Lab, [facility] 1..840.114 [id number] 11:00:00 11:20:00 Care Fam Pob I Health 350.1.13.10 [place] 4.2.7.2.686 Professio [phone] nal 044 Office [facility] 2019-08-29 2019-08-29 Urgent Lab, [facility] Fam Pob I [facility] 1.2.840 .114 [id number] Univers 11:00:00 11:20:00 Care AleshiaAmaya [facility] 350.1.13.10 ity of [place] 4.2.7.2.686 [place] Professio [phone] [address] 2019-08-29 2019-08-29 Outpatient R [facility] [id number] Univers 11:00:00 11:00:00 ity of [facility] 2019-08-29 2019-08-29 Letter Doctor LILLIANA 1.2.840.114 [id number] Univers 00:00:00 00:00:00 (Out) Unassigned, MACKENZIE 350.1.13.10 ity of [place] [facility] 4.2.7.2.686 Kilo as [phone] [address] 2019-08-20 2019-08-20 Refill [facility] 1.2.840.114 [id number] Univers 00:00:00 00:00:00 [facility] 350.1.13.10 ity of [place] 4.2.7.2.686 [place] Professio [phone] [address] 2019-07-30 2019-07-30 Office Kedar, [facility] Encounter / Legacy 00:00:00 00:00:00 Visit Renata [id number] [facility] natalee [id number] [facility] 2019-07-11 2019-07-11 [facility] [id number] Univers 09:15:00 09:15:00 WONDIFUL ity o f [facility] 2019-07-03 2019-07-03 Telephone [facility] 1.2.840.114 [id number] Univers 00:00:00 00:00:00 Wondiful A [place] 350.1.13.10 ity [place]2.[place] [phone] [address] 2019-07-01 2019-07-01 Telephone [facility] 1.2.840.114 [id number] Univers 00:00:00 00:00:00 [facility] 350.1.13.10 ity of [place] 4.2.7.2.686 [place] Professio [phone] Nv dicpr nal 044 [place] Office [facility] 2019-07-01 2019-07-01 Office Wilfredo, [facility] LC Encounter/ Legacy 00:00:00 00:00:00 Visit Mirella [id number] Com natalee De La Cruz [id number] [facility] 2019-07-01 2019-07-01 Office Wilfredo, [facility] LC Encounter/ Legacy 00:00:00 00:00:00 Visit Mirella [id number] Com natalee De La Cruz [id number] [facility] 2019-07-01 2019-07-01 Office Wilfredo, Mirella De La Cruz [facility] LC Encounter/ Legacy 00:00:00 00:00:00 Visit Shy Miller [id number] 438181 [facility] 2019-06-25 2019-06-25 Office Wilfredo, [facility] Encounter/ Legacy 00:00:00 00:00:00 Visit Mirella [id number] Com natalee De La Cruz [id number] [facility] 2019-06-25 2019-06-25 Office Wilfredo, [facility] Encounter/ Legacy 00:00:00 00:00:00 Visit Mirella [id number] Com natalee De La Cruz [id number] [facility] 2019-06-25 2019-06-25 Office Wilfredo, [facility] Encounter/ Legacy 00:00:00 00:00:00 Visit Mirella [id number] Com natalee De La Cruz [id number] [facility] 2019-06-25 2019-06-25 Office Wilfredo, Mirella De La Cruz [facility] Encounter/ Legacy 00:00:00 00:00:00 Visit [facility] [id number] [id number] 2019-05-14 2019-05-14 Refill Joce [facility] 1.2.840.114 [id number] Univers 00:00:00 00:00:00 [facility] 350.1.13.10 ity of [place] 4.2.7.2.686 [place] Professio [phone] [address] Office [facility] 2019-04-05 2019-04-05 Outpatient R JOCE [facility] [id number] Univers 13:15:00 14:32:32 WONDIFUL ity o f [facility] 2019-04-05 2019-04-05 Office [facility] 1.2.840.114 [id number] Univers 13:11:19 14:32:32 Visit Austin A Health 350.1.13.10 ity of [place] 4.2.7.2.686 [place] Professio [phone] Nv dical nal 044 [facility] One 2019-04-04 2019-04-04 Telephone [facility] 1.2.527.071 [id number] Univers 00:00:00 00:00:00 Daniel Harris 350.1.13.10 ity [place] [phone] Nv dical nal 059 [facility] 2019-04-01 2019-04-01 Perioperative Tech 2, Adc Lab [facility] 1.2.840.114 [id number] Univers 11:11:10 11:26:10 Visit Daniel Pérez [place] 350.1.13.10 ity [place].2.[place] [phone] Nv dical nal 353 [facility] 2019-04-01 2019-04-01 [facility] [id number] Univers 11:15:00 11:15:00 DANIEL ity o f [facility] 2019-04-01 2019-04-01 Office [facility] 1.2.840.114 [id number] Univers 09:49:17 11:01:30 Visit Maurochevy [place] 350.1.13.10 ity of [place]2.[place] [phone] Nv dical nal 059 [facility] 2019-04-01 2019-04-01 Orders Doctor LILLIANA 1..840.114 [id number] Univers 00:00:00 00:00:00 Only Unassigned, MACKENZIE 350.1.13.10 ity of [place] [facility] 4.2.7.2.686 Kilo as [phone] [address] 2018-08-03 2018-08-03 Outpatient R JOCE [facility] [id number] Univers 12:45:00 12:45:00 WONDIFUL ity o f [facility] Results Test Description Test Time Test Comments Results Result Comments Source THYROID CASCADE PROFILE 2021-11-13 09:29:42 Test Item Value Reference Range Interpretation Comme nts THYROID STIMULATING See_Comment Normal TSH level consistent with a HORMONE (test code = clinica lly stable patient without 40846-5) hypothalamic-pi tuitary-thyroid axis disorders and n o apparent thyroid dysfunction. No reflex testing required. Unless Otherwis e Indicated, All Testing Performed At: [facility], [address] [place] [address] Laborator y Director: Konstantin Ball Rikki r [id number] Cap Accreditation N o. [Automated message] The sy stem which generated this result transmit kendrick reference range: 0.400 - 4.100 UIU/ML. T he reference range was not used to interpr et this result as normal/abnormal . [id number] 08:36:24 Test Item Value Reference Range Interpretation Comments HEMOGLOBIN A1C (test 6.6 % 4.2-5.6 H AMERIC AN DIABETES code = 4548-4) ASSOCIATION G UIDELINES FOR HGB A1C: PREDIABETES/INC REASED RISK . . . . . . . 5.7-6.4% DIAGNO SIS OF DIABETES . . . . . . . . . >=6.5% WITH CONFIRMATION OR APPROPRIATE SYM PTOMS NOTE: ASSAY MAY BE AFFECTED BY HEMOGLOBINOPATH IES (SICKLE CELL AN EMIA, S-C DISEASE, OTHERS ) OR ARTIFICIALLY LO WERED BY DECREASED RED C ELL SURVIVAL (HEMOL YTIC ANEMIAS, BLOOD LOSS, ETC.). CONSIDER ALTERNATE TESTI NG OR LABORATORY CONS ULTATION. Unless Otherwis e Indicated, All Testing Performed At: [facility], [address] [place] [address] Labora tor Director: Konstantin BallIA Number [id number] Cap Accreditation N o. Lab Interpretation Abnormal (test code = 12195-2) [facility] [id number] 08:11:36 Test Item Value Reference Range Interpretation Comments GLUCOSE (test code = See_Comment H [Autom ated message] 2345-7) The system [employer] generated this result transmitted ref erence range: [...] L [Au tomated message] 2160-0) The system [employer] generated this result transmitted ref erence range: 0.60 - 1 .30 MG/DL. The refe rence range was not u sed to interpret this result as normal/abnor mal. EGFR (test code = See_Comment [Automate d message] 79087-9) The system [employer] generated this result transmitted ref erence range: >60 ML/MIN/1.73. Th e reference range was not used to int erpret this result as normal/abnormal . BUN/CREAT RATIO (test See_Comment [Auto mated message] code = 3097-3) The system [facility] generated this result transmitted ref erence range: 6 - 28 R ATIO. The reference r nanci was not used to interpret this result as normal/abnor mal. SODIUM (test code = See_Comment [Automa kendrick message] 2951-2) The system [employer] generated this result transmitted ref erence range: 133 - 14 6 MEQ/L. The refe rence range was not u sed to interpret this result as normal/abnor mal. POTASSIUM (test code = See_Comment [Aut omated message] 3928-3) The system [employer] generated this result transmitted ref erence range: 3.5 - 5. 4 MEQ/L. The refe rence range was not u sed to interpret this result as normal/abnor mal. CHLORIDE (test code = See_Comment [Auto mated message] 0145-0) The system [facility] generated this result transmitted ref erence range: 95 - 107 MEQ/L. The reference r nanci was not used to interpret this result as normal/abnor mal. CO2 (test code = See_Comment [Automated message] 8) The system [facility] generated this result transmitted ref erence range: 19 - 31 MEQ/L. The reference r nanci was not used to interpret this result as normal/abnor mal. CALCIUM (test code = See_Comment [Autom ated message] 49544-1) The system [facility] generated this result transmitted ref erence range: 8.5 - 10 .5 MG/DL. The refe rence range was not u sed to interpret this result as normal/abnor mal. PROTEIN TOTAL (test See_Comment [Automa kendrick message] code = 2885-2) The system [facility] generated this result transmitted ref erence range: 6.1 - 8. 3 G/DL. The reference r nanci was not used to interpret this result as normal/abnor mal. ALBUMIN (test code = See_Comment [Autom ated message] 41685-2) The system [facility] generated this result transmitted ref erence range: 3.5 - 5. 2 G/DL. The reference r nanci was not used to interpret this result as normal/abnor mal. GLOBULINS, SERUM, TOTAL See_Comment [Au tomated message] (test code = 43235-8) The sy stem which generated this result transmitted ref erence range: 1.9 - 3. 7 G/DL. The reference r nanci was not used to interpret this result as normal/abnor mal. A/G RATIO (test code = See_Comment [Aut omated message] 1759-0) The system [facility] generated this result transmitted ref erence range: 1.0 - 2. 6 RATIO. The refe rence range was not u sed to interpret this result as normal/abnor mal. BILIRUBIN TOTAL (test See_Comment [Auto mated message] code = 1975-2) The system [facility] generated this result transmitted ref erence range: <=1.2 MG /DL. The reference r nanci was not used to interpret this result as normal/abnor mal. ALKALINE PHOSPHATASE 119 U/L 40-142 (test code = 6768-6) AST (SGOT) (test code = 21 U/L 9-40 1920-8) ALT (SGPT) (test code = 17 U/L 5-40 Unl ess Otherwise 1744-2) Indicated, All Testing Performed At: [facility], [address] [facility], [facility] [place] [address] Laborator y Director: Tani Vazquez M.D. CLIA Number [id number] Cap Accreditation [place] o. [id number] Lab Interpretation Abnormal (test code = 80022-4) [facility] W/AUTO DIFF WITH [id number] 07:12:50 Test Item Value Reference Range Interpretation Comments WHITE BLOOD CELL COUNT See_Comment [Aut omated message] (test code = 08274-5) The sy stem which generated this result transmitted ref erence range: 3.5 - 11 .0 K/UL. The refer ence range was not u sed to interpret this result as normal/abnor mal. RED BLOOD CELL COUNT See_Comment [Autom ated message] (test code = 39950-1) The sy stem which generated this result transmitted ref erence range: 3.80 - 5 .40 M/UL. The refer ence range was not u sed to interpret this result as normal/abnor mal. HEMOGLOBIN (test code = See_Comment [Au tomated message] 718-7) The system whic h generated this result transmitted ref erence range: 11.5 - 1 5.5 G/DL. The refer ence range was not u sed to interpret this result as normal/abnor mal. HEMATOCRIT (test code = 38.5 % 34.0-45.0 96812-6) MEAN CORPUSCULAR VOLUME 84.4 fL 80.0-99.0 (test code = 90654-8) MEAN CORPUSCULAR 28.1 PG 25.0-33.0 HEMOGLOBIN (test code = 11710-6) MEAN CORPUSCULAR See_Comment [Automated message] HEMOGLOBIN CONC (test The sy stem which code = 72236-0) generated th is result transmitted ref erence range: 31.0 - 3 6.0 G/DL. The refer ence range was not u sed to interpret this result as normal/abnor mal. RED CELL DISTRIBUTION 13.0 % 11.5-15.0 WIDTH (test code = 12641-9) NEUTROPHILS % (test code 60.3 % = 62880-7) LYMPHOCYTES % (test code 29.6 % = 46500-0) MONOCYTES % (test code = 6.9 % 44995-1) EOSINOPHILS % (test code 2.7 % = 01215-0) BASOPHILS % (test code = 0.4 % 26778-0) IMMATURE GRANULOCYTES 0.1 % (test code = 01807-0) NUCLEATED RBC'S See_Comment Unless Othe rwise MYELOPEROX STAIN (test Indic ated, All Testing code = 41030-4) Performed At : [facility], [address] [place] [address], [place] [address] Laborator y Director: Tani Vazquez M.D. IA Number [id number] Cap Accreditation N o. [id number] [Autom ated message] The sy stem which generated this result transmit kendrick reference range : 0.00 - 0.11 K/UL. Th e reference range was not used to int erpret this result as normal/abnormal . PLATELET COUNT (test See_Comment [Autom ated message] code = 29660-6) The system w hich generated this result transmitted ref erence range: 130 - 40 0 K/UL. The reference r nanci was not used to interpret this result as normal/abnor mal. NEUTROPHILS ABSOLUTE See_Comment [Autom ated message] COUNT (test code = The syste m which 02394-7) generated this result transmitted ref erence range: 1.50 - 7 .50 K/UL. The refer ence range was not u sed to interpret this result as normal/abnor mal. LYMPHOCYTES ABSOLUTE See_Comment [Autom ated message] COUNT (test code = The syste m which 56024-3) generated this result transmitted ref erence range: 1.00 - 4 .00 K/UL. The refer ence range was not u sed to interpret this result as normal/abnor mal. MONOCYTES ABSOLUTE COUNT See_Comment [A utomated message] (test code = 11869-3) The sy stem which generated this result transmitted ref erence range: 0.20 - 1 .00 K/UL. The refer ence range was not u sed to interpret this result as normal/abnor mal. BASOPHILS ABSOLUTE COUNT See_Comment [A utomated message] (test code = 31840-9) The sy stem which generated this result transmitted ref erence range: 0.00 - 0 .20 K/UL. The refer ence range was not u sed to interpret this result as normal/abnor mal. IMMATURE GRANS (ABS) See_Comment [Autom ated message] (test code = 9987) The syste m which generated this result transmitted ref erence range: 0.00 - 0 .10 K/UL. The refer ence range was not u sed to interpret this result as normal/abnor mal. [facility] URINALYSIS [id number] 00:00:00 Test Item Value Reference Range Interpretation Comments COLOR UA (test code = 5778-6) Yellow YELLOW/STRAW CLARITY UA (test code = 65496-0) Clear CLEAR GLUCOSE UA (test code = 5792-7) Negative NEGATIVE BILIRUBIN UA (test code = 5770-3) Negative NEGATIVE KETONES UA (test code = 04300-5) Negative NEGATIVE SPECIFIC GRAVITY UA (test code = 1.005-1.035 5811-5) BLOOD UA (test code = 5794-3) Moderate 2+ NEGATIVE PH UA (test code = 5803-2) 5-9 PROTEIN UA (test code = 5804-0) Trace NEGATIVE UROBILINOGEN UA (test code = 0.02 E.U/DL NORMAL MG/DL 5818-0) LEUKOCYTE ESTERASE UA (test code SMALL NEGATIVE = 5799-2) NITRITE UA (test code = 5802-4) Negative NEGATIVE REDUCING SUBSTANCES URINE (test code = 61387-6) [facility] URINALYSIS [id number] 00:00:00 Test Item Value Reference Range Interpretation Comments COLOR UA (test code = 5778-6) Yellow YELLOW/STRAW CLARITY UA (test code = Clear CLEAR 91646-1) GLUCOSE UA (test code = Negative NEGATIVE 5792-7) BILIRUBIN UA (test code = Negative NEGATIVE 5770-3) KETONES UA (test code = Negative NEGATIVE 79146-6) SPECIFIC GRAVITY UA (test 1.005-1.035 A code = 5811-5) BLOOD UA (test code = 5794-3) Hemolyzed Trace NEGATIVE PH UA (test code = 5803-2) 5-9 PROTEIN UA (test code = Negative NEGATIVE 5804-0) UROBILINOGEN UA (test code = 0.02 E.U/DL NORMAL MG/DL 5818-0) LEUKOCYTE ESTERASE UA (test Negative NEGATIVE code = 5799-2) NITRITE UA (test code = Negative NEGATIVE 5802-4) REDUCING SUBSTANCES URINE NEGATIVE (test code = 38525-0) Lab Interpretation (test code Abnormal = 51236-1) [facility] [id number] [facility]:00:00 Test Item Value Reference Range Interpretation Comments COLOR UA (test code = 5778-6) Light Yellow YELLOW/STRAW CLARITY UA (test code = Cloudy CLEAR 79130-8) GLUCOSE UA (test code = Negative NEGATIVE 5792-7) BILIRUBIN UA (test code = Negative NEGATIVE 5770-3) KETONES UA (test code = Negative NEGATIVE 70014-9) SPECIFIC GRAVITY UA (test 1.005-1.035 code = [...] 5802-4) REDUCING SUBSTANCES URINE (test code = 88450-1) [id number] 11:28:02 Test Item Value Reference Range Interpretation Comments MAGNESIUM (test code = See_Comment Unle ss Otherwise 71950-9) Indicated, All Testing Performed At: [facility], [address] [place] [address] Laborator y Director: Tani Vazquez M.D. IA Number [id number] Cap Accreditation N o. 81449-59 [Autom ated message] The sy stem which generated this result transmitted ref erence range: 1.6 - 2. 6 MG/DL. The reference r nanci was not used to int erpret this result as normal/abnormal . [facility] [id number] 08:53:12 Test Item Value Reference Range Interpretation Comments GLUCOSE (test code = See_Comment H [Autom ated message] 2345-7) The system whic h generated this result [...] L [Au tomated message] 2160-0) The system Crystalsol generated this result transmitted ref erence range: 0.60 - 1 .30 MG/DL. The refe rence range was not u sed to interpret this result as normal/abnor mal. EGFR AA (test code = See_Comment [Autom ated message] 80225-2) The system [employer] generated this result transmitted ref erence range: >60 ML/MIN/1.73. Th e reference range was not used to int erpret this result as normal/abnormal . EGFR (test code = See_Comment [Automate d message] 82813-4) The system [employer] generated this result transmitted ref erence range: >60 ML/MIN/1.73. Th e reference range was not used to int erpret this result as normal/abnormal . SODIUM (test code = See_Comment [Automa kendrick message] 2951-2) The system [employer] generated this result transmitted ref erence range: 133 - 14 6 MEQ/L. The refe rence range was not u sed to interpret this result as normal/abnor mal. POTASSIUM (test code = See_Comment [Aut omated message] 8953-3) The system [employer] generated this result transmitted ref erence range: 3.5 - 5. 4 MEQ/L. The refe rence range was not u sed to interpret this result as normal/abnor mal. CHLORIDE (test code = See_Comment [Auto mated message] 2858-0) The system [employer] generated this result transmitted ref erence range: 95 - 107 MEQ/L. The refe rence range was not u sed to interpret this result as normal/abnor mal. CO2 (test code = 1962-8) See_Comment [A utomated message] The system [employer] generated this result transmitted ref erence range: 19 - 31 MEQ/L. The reference r nanci was not used to interpret this result as normal/abnor mal. CALCIUM (test code = See_Comment Unless Otherwise 15855-5) Indicated, All Testing Perform ed At: [facility], [address] [place] [address] Laborator y Director: Tani Vazquez M.D. CLIA Number [id number] Cap Accreditation N o. 51313-05 [Autom ated message] The sy stem which generated this result transmit kendrick reference range : 8.5 - 10.5 MG/DL. T he reference range was not used to int erpret this result as normal/abnormal . Lab Interpretation (test Abnormal code = 68960-4) [facility] [id number] 08:53:12 Test Item Value Reference Range Interpretation Comments URIC ACID (test code See_Comment Unless Otherwise = 3315468) Indicated, All Testing Performed At: [facility], [address] [place] [address] Laborator y Director: Tani rogers M.D. CLIA Number [id number] Cap Accreditation N o. 15437-63 [Automated mess age] The system which ge nerated this result transmit kendrick reference range : 2.7 - 6.1 MG/DL. The refe rence range was not used to interpret this result as normal/abnormal . [facility], FLUORO, NON-SPECIFIC, UP TO 1 [id number] 09:44:00Reason for exam:->cystoFINAL REPORT A fluoroscopic unit was utilized for a procedure performed in the operating room. No interpretation was requested. Please refer to the operative report regarding findings. Please refer to PACS for patient radiation dose information. Signed: JR Johnson Robert MDReport Verified Date/Time: 07/14/2019 09:44:15 Reading Location: [address] Neuro Reading Room BLOOD [id number] 11:00:00 Test Item Value Reference Range Interpretation Comments CULTURE (BEAKER) (test No growth in 5 days code = 1095) BLOOD [id number] 11:00:00 Test Item Value Reference Range Interpretation Comments CULTURE (BEAKER) (test No growth in 5 days code = 1095) URINE [id number] 11:07:00 Test Item Value Reference Range Interpretation Comments CULTURE (BEAKER) (test code = 1095) No growth ANG, NEPHROSTOMY, PERC, EXTERNAL [id number] 11:00:00Reason for exam:- >request left PCN for left obstructing stone, feversFINAL REPORT Procedure: Percutaneous nephrostomy catheter placement. History: Left ureteric calculus with obstruction, infection. Warehouse Attendant: Bradford Matthew M.D. Continuous Mining Machine Operator: Not applicableKonstantin Modality: Ultrasound and fluoroscopy. DOSE REDUCTION: The [...] sequential dilatation of the tract, an 8.5 [place] nephrostomy catheter was placed, pigtail locked in [...] Impression:Successful ultrasound and fluoroscopic g uided 8.5 [place] nephrostomy catheter placement left kidney via a posterior inferior calyx as described above. Further management dictated by the clinical scenario. The nephrostomy catheter(s) should be exchanged at the latest in three months. Thank you for the opportunity to assist in the care of your patient. Signed: Bradford Matthew MDReport Verified Date/Time: 07/10/2019 11:00:12 Reading Location:[address] Body Reading Room 11:00 AMBASIC METABOLIC [id number] 07:33:00 Test Item Value Reference Range Interpretation [...] 1092) DATA TO CALCULA TE ESTIMATED GFR. Entry Level Sales Representative ID - MONIE [id number] 07:25:00 Test Item Value Reference Range Interpretation Comments MAGNESIUM (BEAKER) (test code = 2.2 mg/dL 1.6-2.6 627) Entry Level Sales Representative ID - FEB CHEPATIC FUNCTION [id number] 07:25:00 Test Item Value Reference Range Interpretation [...] (test code = 43 U/L 6-55 347) Entry Level Sales Representative ID - FEB CCBC W/PLT COUNT & AUTO [id number] 06:54:00 Test Item Value Reference Range Interpretation [...] (BEAKER) (test code = 2801) BASIC METABOLIC [id number] 05:38:00 Test Item Value Reference Range Interpretation [...] 1092) DATA TO CALCULA TE ESTIMATED GFR. Entry Level Sales Representative ID - [id number] 05:24:00 Test Item Value Reference Range Interpretation Comments MAGNESIUM (BEAKER) (test code = 1.8 mg/dL 1.6-2.6 627) Entry Level Sales Representative ID - LAHEPATIC FUNCTION [id number] 05:24:00 Test Item Value Reference Range Interpretation [...] (test code = 36 U/L 6-55 347) Entry Level Sales Representative ID - LACBC W/PLT COUNT & AUTO [id number] 04:34:00 Test Item Value Reference Range Interpretation [...] (BEAKER) (test code = 2801) LACTIC ACID, [id number] 20:25:00 Test Item Value Reference Range Interpretation Comments LACTATE BLOOD VENOUS (2) (BEAKER) 0.69 mmol/L 0.50-2.20 (test code = 2872) Entry Level Sales Representative ID - NTPRAD, CHEST, 1 VIEW, NON [id number] 16:24:00Reason for exam:->feverShould this be performed at the bedside?->YesFINAL REPORT CLINICAL HISTORY: fever TECHNIQUE: 1 view of the chest. COMPARISON: None IMPRESSION: There is possible retrocardiac left lower lobe consolidation, for which clinical correlation for pneumonia is requested. There is blunting of the left costophrenic angle. The heart isnot enlarged. Signed: Rich Rebolledo MDReport Verified Date/Time: 07/08/2019 16:24:52 Reading Location: [facility] Neuro Reading Room HEMOGLOBIN [id number] 13:56:00 Test Item Value Reference Range Interpretation Comments HEMOGLOBIN A1C (BEAKER) (test code = 6.1 % 4.3-6.1 368) URINALYSIS W/ REFLEX URINE [id number] 13:15:00 Test Item Value Reference Range Interpretation [...] = 516) SOURCE(BEAKER) (test code = 2795) Entry Level Sales Representative ID - [auto]Entry Level Sales Representative ID - techRESPIRATORY PANEL [id number] 12:14:00 Test Item Value Reference Range Interpretation [...] sample was tested at the [facility] using the [employer] FilmArray Respiratory Panel. It is FDA cleared and has been verified and approved by the [facility] for clinical use on nasopharyngeal swab specimens.The performance of the FilmArrayRP has not been established in individuals who received influenza vaccine. Recent administration of a nasal influenza vaccine may cause false positive results for Influenza A and/orInfluenza B.SARS-COV2/RT-PCR ([facility])2019-07-08 11:26:00 Test Item Value Reference Range Interpretation Comments SARS-COV2/RT-PCR (test Not Detected Not Detected, Negative code = 0229633) SARS-COV-[address] [facility] (test code = 9272053) Negative results do not preclude SARS-CoV-2 infection [...] of the Act.Fact Sheet for Healthcare Pro viders:https://www.[employer]/Documents/Xpert%20Xpress%20SARS%20CoV-2/Fact%20Sh eets/3023802%67RRLE-ROV-5%20HEALTHCARE%20PROVIDERS%20FACT%20SHEET.pdfFact Sheet for Healthcare Patients:https://www.[employer]/Documents/Xpert%20Xpress%20SARS%20CoV-2/Fact%20Sheets/3023801%20SARS-COV -2%20PATIENT%20FACT%20SHEET.pdfPerforming Laboratory:[address] [place], [place] [address]YZCQJ METABOLIC [id number] 10:06:00 Test Item Value Reference Range Interpretation [...] 1092) DATA TO CALCULA TE ESTIMATED GFR. Entry Level Sales Representative ID - [id number] 10:05:00 Test Item Value Reference Range Interpretation Comments MAGNESIUM (BEAKER) (test code = 2.0 mg/dL 1.6-2.6 627) Entry Level Sales Representative ID - NTPHEPATIC FUNCTION [id number] 10:05:00 Test Item Value Reference Range Interpretation [...] (test code = 30 U/L 6-55 347) Entry Level Sales Representative ID - [id number]/[id number] 09:53:00 Test Item Value Reference Range Interpretation [...] 2.5-3.5 for patients wiht mechanical heart valves.PROTHROMBIN TIME/[id number] 09:51:00 Test Item Value Reference Range Interpretation [...] for patients wiht mechanical heart valves.LACTIC ACID, [id number] 09:50:00 Test Item Value Reference Range Interpretation Comments LACTATE BLOOD VENOUS (2) (BEAKER) 2.87 mmol/L 0.50-2.20 H (test code = 2872) Entry Level Sales Representative ID - NTPCBC W/PLT COUNT & AUTO [id number] 09:41:00 Test Item Value Reference Range Interpretation [...] % 0-1 PERCENT (BEAKER) (test code = 6141)
[2022-02-27] MEDS ORDERED: MORPHINE 2 MG/ML SYR ONE ×2 (12:57→15:49)
[2022-02-27] MEDS ORDERED: NA CHLORIDE 0.9% 1,000 ML ONE (12:57)
[2022-02-27] MEDS ORDERED: ONDANSETRON 4 MG/2 ML VIAL ONE (12:57)
[2022-02-27 12:59] LABS: Urine Blood 1+ (Negative); Urine Glucose Negative (Negative); Urine Protein Negative (Negative); Urine Specific Gravity 1.025 (1.005-1.030)
[2022-02-27 13:22] LABS: Urine Bacteria <20 /HPF (<20); Urine Crystals Unidentified Few /HPF (None Seen); Urine Mucus Slight /HPF (None Seen); Urine WBC Clump Rare /HPF (None Seen)
[2022-02-27 13:45] LABS: Hematocrit 37.8 % (36.0-45.0); Lymphocytes % 14.9 % (15.3-44.8); MCV 79.4 fL (80-100); MPV 8.2 fL (7.6-11.3); RBC Red Blood Cell Count 4.76 M/uL (3.86-4.86)
[2022-02-27 14:03] LABS: Bilirubin Total 0.4 mg/dL (0.2-1.0); Protein, Total 6.8 g/dL (6.4-8.2)
--- NOTE | 2022-02-27 14:55 | RAD REPORT ---
EXAM DESCRIPTION: CT - Abdomen Pelvis W Contrast - 02/27/2022 2:41 pm CLINICAL HISTORY: Abdominal pain COMPARISON: 2019 TECHNIQUE: Computed axial tomography of the abdomen pelvis was obtained. 100 cc Isovue-300 was admin istered intravenously. Oral contrast was not requested which limits evaluation of bowel and appendix All CT scans are performed using dose optimization technique as appropriate and may include automated exposure control or mA/KV adjustment according to patient size. FINDINGS: The liver, spleen, pancreas, adrenal and kidneys appear unremarkable. There is no evidence of diverticulitis. Cholecystectomy. Prominence of the biliary tree unchanged and probably physiologic Borderline prominence of the appendix is unchanged. No stranding within the adjacent fat. This probab ly is not significant. Hysterectomy. No adnexal mass. Air within the bladder IMPRESSION: Air within the bladder could indicate infection or be secondary to instrumentation.
--- NOTE | 2022-02-27 15:18 | EDPHYS ---
Physician Documentation [facility] Name: Erika Jacobson Age: 86 yrs Sex: Female : 1935 Arrival Date: 02/27/2022 Time: 12:36 Bed 19 Private MD: ED Physician Charly Guo HPI: 02/27 14:27 This 86 yrs old Female presents to ER via Ambulatory with complaints of roxanna Abdominal Pain. 14:27 The patient presents with abdominal pain abdominal distention in the lower abdomen, in roxanna the right lower quadrant. Onset: The symptoms/episode began/occurred 3 day(s) ago. The symptoms do not radiate. Associated signs and symptoms: none. The symptoms are described as constant, crampy. Severity of pain: At its worst the pain was very mild moderate in the emergency department the pain is unchanged. The patient has not experienced similar symptoms in the past. Historical: - Allergies: 12:45 No Known Allergies; iw - Home Meds: 17:18 aspirin 81 mg Oral chew 1 tab once daily [Active]; atorvastatin 40 mg Oral tab 1 tab eh3 once daily [Active]; carvedilol Oral [Active]; Lasix Oral [Active]; losartan 100 mg Oral tab 1 tab once daily [Active]; - PMHx: 12:45 Asthma; CVA; Hyperlipidemia; Hypertension; iw - PSHx: 12:45 choleycestectomy; hysterectomy; kidney stones; iw - Immunization history:: Adult Immunizations up to date. - Social history:: Smoking status: unknown. - Family history:: not pertinent. ROS: 14:27 Constitutional: Negative for fever, chills, and weight loss, Eyes: Negative for injury, roxanna pain, redness, and discharge, ENT: Negative for injury, pain, and discharge, Neck: Negative for injury, pain, and swelling, Cardiovascular: Negative for chest pain, palpitations, and edema, Respiratory: Negative for shortness of breath, cough, wheezing, and pleuritic chest pain, Back: Negative for injury and pain, : Negative for injury, bleeding, discharge, and swelling, MS/Extremity: Negative for injury and deformity, Skin: Negative for injury, rash, and discoloration, Neuro: Negative for headache, weakness, numbness, tingling, and seizure, Psych: Negative for depression, anxiety, suicide ideation, homicidal ideation, and hallucinations, Allergy/Immunology: Negative for hives, rash, and allergies, Endocrine: Negative for neck swelling, polydipsia, polyuria, polyphagia, and marked weight changes, Hematologic/Lymphatic: Negative for swollen nodes, abnormal bleeding, and unusual bruising. 14:27 Abdomen/GI: Positive for abdominal pain, abdominal cramps, of the right lower quadrant. Exam: 14:27 Constitutional: This is a well developed, well nourished patient who is awake, alert, roxanna and in no acute distress. Head/Face: Normocephalic, atraumatic. Eyes: Pupils equal round and reactive to light, extra-ocular motions intact. Lids and lashes normal. Conjunctiva and sclera are non-icteric and not injected. Cornea within normal limits. Periorbital areas with no swelling, redness, or edema. ENT: Nares patent. No nasal discharge, no septal abnormalities noted. Tympanic membranes are normal and external auditory canals are clear. Oropharynx with no redness, swelling, or masses, exudates, or evidence of obstruction, uvula midline. Mucous membranes moist. Neck: Trachea midline, no thyromegaly or masses palpated, and no cervical lymphadenopathy. Supple, full range of motion without nuchal rigidity, or vertebral point tenderness. No Meningismus. Chest/axilla: Normal chest wall appearance and motion. Nontender with no deformity. No lesions are appreciated. Cardiovascular: Regular rate and rhythm with a normal S1 and S2. No gallops, murmurs, or rubs. Normal PMI, no JVD. No pulse deficits. Respiratory: Lungs have equal breath sounds bilaterally, clear to auscultation and percussion. No rales, rhonchi or wheezes noted. No increased work of breathing, no retractions or nasal flaring. Back: No spinal tenderness. No costovertebral tenderness. Full range of motion. Female : Normal external genitalia. Skin: Warm, dry with normal turgor. Normal color with no rashes, no lesions, and no evidence of cellulitis. MS/ Extremity: Pulses equal, no cyanosis. Neurovascular intact. Full, normal range of motion. Neuro: Awake and alert, GCS 15, oriented to person, place, time, and situation. Cranial nerves II-XII grossly intact. Motor strength 5/5 in all extremities. Sensory grossly intact. Cerebellar exam normal. Normal gait. Psych: Awake, alert, with orientation to person, place and time. Behavior, mood, and affect are within normal limits. 14:27 ECG was reviewed by the Attending Physician. 14:27 Abdomen/GI: Inspection: distension, that is mild, Bowel sounds: hyperactive, in all quadrants, Palpation: moderate abdominal tenderness, in the right lower quadrant, Liver: no appreciated palpable abnormalities, Hernia: not appreciated. Vital Signs: 12:42 BP 132 / 46; Pulse 80; Resp 16; Temp 98.0; Pulse Ox 100% on R/A; iw 13:30 BP 156 / 58; Pulse 60; Resp 18; Pulse Ox 99% on R/A; eh3 14:30 BP 144 / 56; Pulse 62; Resp 18; Pulse Ox 100% on R/A; eh3 15:30 BP 142 / 55; Pulse 63; Resp 18; Pulse Ox 100% on R/A; eh3 16:30 BP 139 / 48; Pulse 65; Resp 16; Pulse Ox 100% on R/A; eh3 17:30 BP 138 / 49; Pulse 64; Resp 18; Pulse Ox 99% on R/A; eh3 MDM: 12:48 Patient medically screened. roxanna 14:31 Differential diagnosis: appendicitis, bowel obstruction, diverticulitis, gastritis, roxanna non-specific abd pain, pancreatitis, Pyelonephritis, Ureterolithiasis, urinary tract infection. Data reviewed: vital signs, nurses notes, lab test result(s), EKG, radiologic studies, CT scan, plain films. Consideration of Admission/Observation Patient was admitted/placed on observation. Escalation of care including admission/observation considered. I considered the following discharge prescriptions or medication management in the emergency department Medications were administered in the Emergency Department. See 12:51 Order name: CBC with Diff; Complete Time: 14:20 [facility] 02/27 12:51 Order name: CMP; Complete Time: 14:20 [facility] 02/27 12:51 Order name: Lipase; Complete Time: 14:20 [facility] 02/27 12:51 Order name: Urine Microscopic Only; Complete Time: 14:20 [facility] 02/27 12:59 Order name: Urine Dipstick-Ancillary; Complete Time: 14:20 EDMS 02/27 15:52 Order name: CBC with Automated Diff [facility]MS 02/27 12:51 Order name: CT Abd/Pelvis - PO and IV Contrast; Complete Time: 15:08 [facility] 02/27 15:52 Order name: CBC with Automated Diff [facility] 02/27 15:52 Order name: Comprehensive Metabolic Panel [facility] 02/27 15:52 Order name: Comprehensive Metabolic Panel [facility] 02/27 15:53 Order name: SARS RAPID eb 02/27 16:53 Order name: SARS-COV-2 Antigen Rapid [facility] 02/27 12:51 Order name: IV Saline Lock; Complete Time: 13:44 [facility] 02/27 12:51 Order name: Labs collected and sent; Complete Time: 13:44 [facility] 02/27 12:51 Order name: Urine Dipstick-Ancillary (obtain specimen); Complete Time: 13:02 [facility] 02/27 12:51 Order name: EKG; Complete Time: 12:51 [facility] 02/27 12:51 Order name: EKG - Nurse/Tech; Complete Time: 13:44 [facility] 02/27 15:51 Order name: CONS Physician Consult [facility] 02/27 15:52 Order name: NPO EDWI EC:27 Rate is 68 beats/min. Rhythm is regular. QRS [place] is Normal. GA interval is normal. QRS roxanna interval is normal. QT interval is normal. No Q waves. T waves are Normal. No ST changes noted. Clinical impression: NSR w/ Non-specific ST/T Changes. Interpreted by me. Reviewed by me. Administered Medications: 13:20 Drug: NS 0.9% 1000 ml Route: IV; Rate: 1 bolus; Site: right antecubital; 3 15:00 Follow up: IV Status: Completed infusion; IV Intake: 1000ml 3 13:20 Drug: Zofran (Ondansetron) 4 mg Route: IVP; Site: right antecubital; eh3 14:00 Follow up: Response: Nausea is decreased 3 13:20 Drug: morphine 2 mg Route: IVP; Infused Over: 4 mins; Site: right antecubital; eh3 14:00 Follow up: Response: Pain is decreased eh3 15:00 Drug: Zosyn (piperacillin-tazobactam) 3.375 grams Route: IVPB; Infused Over: 60 mins; eh3 Site: right antecubital; 15:00 Follow up: Response: No adverse reaction eh3 16:00 Follow up: Response: No adverse reaction; IV Status: Completed infusion; IV Intake: eh3 100ml 21:01 Not Given (Pt admitted to 2nd floor before administrationn): levofloxacin 500 mg 100 ml eh3 IVPB once over 60 mins Disposition Summary: 02/27/22 15:17 Hospitalization Ordered Hospitalization Status: Inpatient Admission roxanna [facility] roxanna Condition: Fair roxanna Problem: new roxanna Symptoms: have improved roxanna Bed/Room Type: Standard roxanna Provider: Jun Bran(02/27/22 15:24) roxanna Room Assignment: 220(02/27/22 17:03) dw Diagnosis - Abdominal tenderness roxanna - UTI/ Urinary tract infection, site not specified roxanna - Elevated white blood cell count roxanna Forms: - Medication Reconciliation Form roxanna - SBAR form roxanna Signatures: Dispatcher [employer] Peggy Welch RN RN dw Anderson, Corey, MD MD cha Williams, Irene, RN RN Mareclina Daniel RN RN 3 Corrections: (The following items were deleted from the chart) 15:24 15:17 Rufino Flores cha [facility] 17:03 15:17 [place]
--- NOTE | 2022-02-27 15:18 | ER ---
Nurse's Notes [facility] Name: Erika Jacobson Age: 86 yrs Sex: Female : 1935 Arrival Date: 02/27/2022 Time: 12:36 Bed 19 Private MD: Diagnosis: Abdominal tenderness;UTI/ Urinary tract infection, site not specified;Elevated white blood cell count Presentation: 02/27 12:42 Chief complaint: Patient's son or daughter states: pain in her lower abd X 3 days, iw comes and goes, pain in RLQ constant now , she can't sleep, denies pain with urination. Coronavirus screen: At this time, the client does not indicate any symptoms associated with coronavirus-19. Ebola Screen: Patient negative for fever greater than or equal to 101.5 degrees Fahrenheit, and additional compatible Ebola Virus Disease symptoms Patient denies exposure to infectious person. Patient denies travel to an Ebola-affected area in the 21 days before illness onset. No symptoms or risks identified at this time. Initial Sepsis Screen: Does the patient meet any 2 criteria? No. Patient's initial sepsis screen is negative. Does the patient have a suspected source of infection? No. Patient's initial sepsis screen is negative. Risk Assessment: Do you want to hurt yourself or someone else? Patient reports no desire to harm self or others. Onset of symptoms was February 24, 2022. 12:42 Method Of Arrival: Ambulatory iw 12:42 Acuity: ISHAN 3 iw Historical: - Allergies: 12:45 No Known Allergies; iw - Home Meds: 17:18 aspirin 81 mg Oral chew 1 tab once daily [Active]; atorvastatin 40 mg Oral tab 1 tab eh3 once daily [Active]; carvedilol Oral [Active]; Lasix Oral [Active]; losartan 100 mg Oral tab 1 tab once daily [Active]; - PMHx: 12:45 Asthma; CVA; Hyperlipidemia; Hypertension; iw - PSHx: 12:45 choleycestectomy; hysterectomy; kidney stones; iw - Immunization history:: Adult Immunizations up to date. - Social history:: Smoking status: unknown. - Family history:: not pertinent. Screenin:00 [facility] ED Fall Risk Assessment (Adult) History of falling in the last 3 months, eh3 including since admission No falls in past 3 months (0 pts) Confusion or Disorientation No (0 pts) Intoxicated or Sedated No (0 pts) Impaired Gait Yes (1 pt) Mobility Assist Device Used Yes (1 pt) Altered Elimination No (0 pt) Score/Fall Risk Level 3 or more points = High Risk Oriented to surroundings, Maintained a safe environment, Educated pt \T\ family on fall prevention, incl call for assistance when getting out of bed, Assessed \T\ reinforced patient's understanding of fall precautions, Hourly rounding (assess needs \T\ fall precautionary measures) done, Utilized family, sitter, or virtual hotel or motel room service supervisor as indicated. Abuse screen: Denies threats or abuse. Denies injuries from another. Nutritional screening: No deficits noted. Tuberculosis screening: No symptoms or risk factors identified. Assessment: 13:00 General: Appears in no apparent distress. uncomfortable, Behavior is calm, cooperative, eh3 appropriate for age. Pain: Complains of pain in right lower quadrant. Neuro: Level of Consciousness is awake, alert, obeys commands, Oriented to person, place, time, situation. Cardiovascular: Capillary refill < 3 seconds Patient's skin is warm and dry. Respiratory: Airway is patent Respiratory effort is even, unlabored, Respiratory pattern is regular, symmetrical. GI: Abdomen is round non-distended, Bowel sounds present X 4 quads. Abd is soft X 4 quads Abdomen is tender to palpation in right lower quadrant. : No signs and/or symptoms were reported regarding the genitourinary system. EENT: No signs and/or symptoms were reported regarding the EENT system. Derm: No signs and/or symptoms reported regarding the dermatologic system. Skin is pink, warm \T\ dry. Musculoskeletal: No signs and/or symptoms reported regarding the musculoskeletal system. Circulation, motion, and sensation intact. Range of motion: intact in all extremities. 14:00 Reassessment: Patient appears in no apparent distress at this time. Patient and/or eh3 family updated on plan of care and expected duration. Pain level reassessed. Patient is alert, oriented x 3, equal unlabored respirations, skin warm/dry/pink. 15:00 Reassessment: Patient appears in no apparent distress at this time. Patient and/or eh3 family updated on plan of care and expected duration. Pain level reassessed. Patient is alert, oriented x 3, equal unlabored respirations, skin warm/dry/pink. 16:00 Reassessment: Patient appears in no apparent distress at this time. Patient and/or eh3 family updated on plan of care and expected duration. Pain level reassessed. Patient is alert, oriented x 3, equal unlabored respirations, skin warm/dry/pink. 17:00 Reassessment: Patient appears in no apparent distress at this time. Patient and/or eh3 family updated on plan of care and expected duration. Pain level reassessed. Patient is alert, oriented x 3, equal unlabored respirations, skin warm/dry/pink. Vital Signs: 12:42 BP 132 / 46; Pulse 80; Resp 16; Temp 98.0; Pulse Ox 100% on R/A; iw 13:30 BP 156 / 58; Pulse 60; Resp 18; Pulse Ox 99% on R/A; eh3 14:30 BP 144 / 56; Pulse 62; Resp 18; Pulse Ox 100% on R/A; eh3 15:30 BP 142 / 55; Pulse 63; Resp 18; Pulse Ox 100% on R/A; eh3 16:30 BP 139 / 48; Pulse 65; Resp 16; Pulse Ox 100% on R/A; eh3 17:30 BP 138 / 49; Pulse 64; Resp 18; Pulse Ox 99% on R/A; eh3 ED Course: 12:36 Patient arrived in ED. rg4 12:45 Triage completed. iw 12:45 Arm band placed on. iw 12:47 Patient placed in an exam room, on a stretcher. ll1 12:48 Charly Guo MD is Attending Physician. roxanna 12:51 Marcelina Daniel, VIVIENNE is Primary Nurse. eh3 13:00 Patient has correct armband on for positive identification. Placed in gown. Bed in low eh3 position. Call light in reach. Side rails up X2. Adult w/ patient. Client placed on continuous cardiac and pulse oximetry monitoring. NIBP monitoring applied. Door closed. Noise minimized. Lights dimmed. Warm blanket given. 13:15 Inserted saline lock: 22 gauge in right antecubital area, using aseptic technique. eh3 Blood collected. 14:43 CT Abd/Pelvis - PO and IV Contrast In Process Unspecified. EDMS 15:17 Rufino Flores is Hospitalizing Provider. roxanna 15:24 Jun Bran MD is Hospitalizing Provider. roxanna 17:17 No provider procedures requiring assistance completed. Patient admitted, IV remains in eh3 place. Administered Medications: 13:20 Drug: NS 0.9% 1000 ml Route: IV; Rate: 1 bolus; Site: right antecubital; 3 15:00 Follow up: IV Status: Completed infusion; IV Intake: 1000ml 3 13:20 Drug: Zofran (Ondansetron) 4 mg Route: IVP; Site: right antecubital; 3 14:00 Follow up: Response: Nausea is decreased 3 13:20 Drug: morphine 2 mg Route: IVP; Infused Over: 4 mins; Site: right antecubital; 3 14:00 Follow up: Response: Pain is decreased 3 15:00 Drug: Zosyn (piperacillin-tazobactam) 3.375 grams Route: IVPB; Infused Over: 60 mins; 3 Site: right antecubital; 15:00 Follow up: Response: No adverse reaction 3 16:00 Follow up: Response: No adverse reaction; IV Status: Completed infusion; IV Intake: eh3 100ml 21:01 Not Given (Pt admitted to 2nd floor before administrationn): levofloxacin 500 mg 100 ml eh3 IVPB once over 60 mins Medication: 17:17 VIS not applicable for this client. 3 Intake: 15:00 IV: 1000ml; Total: 1000ml. eh3 16:00 IV: 100ml; Total: 1100ml. 3 Outcome: 15:17 Decision to Hospitalize by Provider. roxanna 17:59 Admitted to Med/surg accompanied by tech, family with patient, via wheelchair, room eh3 220, with chart, Report called to Heather 17:59 Condition: stable 17:59 Instructed on the need for admit. 18:07 Patient left the ED. 3 Signatures: Dispatcher [employer] EDMS Charly Guo MD MD cha Williams, Irene, RN Christine Ramos4 Blaine Valverde RN RN ll1 Marcelina Daniel RN RN 3 Corrections: (The following items were deleted from the chart) 13:47 13:20 morphine 2 mg IVP in right antecubital over 4 mins 3 3 14:11 14:10 BP 156 / 58; Pulse 60bpm; Resp 18bpm; Pulse Ox 99% RA; 3 3 17:50 17:50 BP 142 / 55; Pulse 63bpm; Resp 18bpm; Pulse Ox 100% RA; eh3 3
[2022-02-27] MEDS ORDERED: Levofloxacin500mg IV 0 MG/0 ML BAG IV ONE (15:49)
[2022-02-27] MEDS ORDERED: ONDANSETRON 4 MG/2 ML VIAL IV PRN (15:49)
[2022-02-27] MEDS ORDERED: PIPERACIL/TAZO 3.375 GM VIAL IV ONE (15:49)
[2022-02-27] MEDS ORDERED: NA CHLORIDE 0.9% 100 ML IV ONE (15:49)
--- NOTE | 2022-02-27 15:57 | P.HP ---
Certification for Inpatient Patient admitted to: Observation Practitioner: I am a practitioner with admitting privileges, knowledge of patient current condition, hospital course, and medical plan of care. Services: Services provided to patient in accordance with Admission requirements found in Title 42 Section 412.3 of the Code of Federal Regulations Patient History Date of Service: 02/27/22 Reason for admission: Right lower quadrant pain History of Present Illness: Patient is 86 years of age Welsh-speaking only has been complaining of acute right lower quadrant pain for the past 3 days denies any nausea vomiting diarrhea complains of mild to moderate. Allergies No Known Allergies Allergy (Verified 09/03/18 08:32) Home Medications: Aspirin Chewable [Aspirin Chewable*] 81 mg PO DAILY 02/15/22 Atorvastatin Calcium [Lipitor*] 20 mg PO BEDTIME 02/15/22 Benzonatate [Tessalon Perle*] 200 mg PO TIDP PRN 02/15/22 Losartan Potassium [Cozaar] 25 mg PO DAILY 02/15/22 carvediloL [Coreg*] 6.25 mg PO DAILY 02/15/22 Furosemide [Lasix*] 20 mg PO DAILY #30 tab 02/17/22 predniSONE [Prednisone*] 20 mg PO BID 3 Days #6 tab 02/17/22 - Past Medical/Surgical History Diabetic: No -: Hypertension -: Dyslipidemia -: CVA -: kidney stones -: Asthma -: Diastolic heart failure -: Cholecystectomy Psychosocial/ Personal History: Patient lives at home with her children. - Social History Alcohol use: No CD- Drugs: No Caffeine use: Yes Review of Systems 10-point ROS is otherwise unremarkable Physical Examination - Vital Signs Temperature: 98 F Blood Pressure: 132/46 Pulse: 80 Respirations: 14 Pulse Ox (%): 100 - Physical Exam General: Alert, Mild distress HEENT: Atraumatic Neck: Supple Respiratory: Clear to auscultation bilaterally Cardiovascular: No edema, Regular rate/rhythm, Normal S1 S2 Gastrointestinal: Normal bowel sounds, Tenderness (Deep tenderness in the right lower quadrant) Musculoskeletal: No clubbing Integumentary: No rashes, No breakdown, No significant lesion Neurological: Normal speech - Studies Laboratory Data (last 24 hrs) 02/27/22 13:28: Sodium 135 L, Potassium 4.0, BUN 16, Creatinine 0.56, Glucose 153 H, Total Bilirubin 0.4, AST 31, ALT 27, Alkaline Phosphatase 84, Lipase 314 02/27/22 13:28: WBC 13.40 H, Hgb 12.1, Hct 37.8, Plt Count 302 Assessment and Plan - Problems (Diagnosis) (1) Right lower quadrant abdominal pain Current Visit: Yes Status: Acute Plan: Patient is 86 years of age admitted with acute 3-day onset of right lower quadrant abdominal pain denies any urinary tract symptoms White count is mildly elevated scan of the abdomen possible urinary tract infection she is got air in the bladder/admit for observation heart CT scan report Prominence of the biliary tree unchanged and probably physiologic Borderline prominence of the appendix is unchanged. No stranding within the adjacent fat. This probably is not significant. Hysterectomy. No adnexal mass. Air within the bladder IMPRESSION: Air within the bladder could indicate infection or be secondary to instrumentation urinalysis labs reviewed doubt urinary tract infection consult general surgery admit for observation continue with Zosyn - Advance Directives Does patient have a Living Will: No Does patient have a Durable POA for Healthcare: No
[2022-02-27] MEDS: NA CHLORIDE 0.9% 1,000 ML IV SCH ×2 (16:00→21:03)
[2022-02-27 16:53] LABS: SARS-CoV-2 Antigen Rapid Res Negative (Negative)
[2022-02-27 19:29] VITALS: BMI 27.6
[2022-02-27] MEDS: MORPHINE 2 MG/ML SYR IV PRN (23:24)
[2022-02-28 03:22] LABS: Hematocrit 32.7 % (36.0-45.0); Lymphocytes % 19.6 % (15.3-44.8); MPV 8.3 fL (7.6-11.3); RBC Red Blood Cell Count 4.14 M/uL (3.86-4.86)
[2022-02-28 03:39] LABS: Albumin 2.5 g/dL (3.4-5.0); Bilirubin Total 0.3 mg/dL (0.2-1.0); Potassium 4.4 mmol/L (3.5-5.1); Protein, Total 5.5 g/dL (6.4-8.2)
[2022-02-28] MEDS: PIPER TAZO 3.375 GM in NA CHLORIDE 0.9% 100 ML IV SCH ×3 (05:56→21:05)
[2022-02-28] MEDS ORDERED: PIPERACIL/TAZO 3.375 GM VIAL IV ONE (05:58)
[2022-02-28] MEDS ORDERED: PIPER TAZO 3.375 GM in NA CHLORIDE 0.9% 100 ML IV SCH (06:00)
[2022-02-28] MEDS: NA CHLORIDE 0.9% 1,000 ML IV SCH ×3 (07:30→18:18)
--- NOTE | 2022-02-28 13:11 | P.PN ---
Subjective Date of Service: 02/28/22 Chief Complaint: Right lower quadrant pain Patient complaining of lower abdominal pain, suprapubic pain and lower back pain. No bowel movement today. No nausea or vomiting, no fever. Physical Examination - Vital Signs Temperature: 98.3 F Blood Pressure: 187/85 Pulse: 69 Respirations: 14 Pulse Ox (%): 95 - Physical Exam General: Alert, In no apparent distress, Obese HEENT: Mucous membr. moist/pink Neck: Supple, JVD not distended Respiratory: Clear to auscultation bilaterally, Normal air movement Cardiovascular: No edema, Regular rate/rhythm, Normal S1 S2 Gastrointestinal: Normal bowel sounds, Soft and benign, Non-distended, No tenderness Musculoskeletal: No swelling, No tenderness Integumentary: No rashes, No cyanosis Neurological: Normal speech, Normal strength at 5/5 x4 extr, Cranial nerves 3-12 intact Lymphatics: No axilla or inguinal lymphadenopathy - Studies Laboratory Data (last 24 hrs) 02/27/22 13:28: Sodium 135 L, Potassium 4.0, BUN 16, Creatinine 0.56, Glucose 153 H, Total Bilirubin 0.4, AST 31, ALT 27, Alkaline Phosphatase 84, Lipase 314 02/27/22 13:28: WBC 13.40 H, Hgb 12.1, Hct 37.8, Plt Count 302 Assessment And Plan - Current Problems (Diagnosis) (1) Right lower quadrant abdominal pain Current Visit: Yes Status: Acute (2) Hypertension Current Visit: No Status: Acute Qualifiers: Hypertension type: primary hypertension Qualified Code(s): I10 - Essential (primary) hypertension (3) Microcytic anemia Current Visit: Yes Status: Acute - Plan Cause of abdominal pain is unclear. CT abdomen and pelvis on admission report borderline prominent appendix. Apparently patient had a previous CT 3 years ago which demonstrated mildly dilated. No acute abdomen. Case discussed with general surgery Dr. Sanderson. Repeat CT abdomen and pelvis. Keep n.p.o. until CT scan results. Continue IV Zosyn. Pain management as needed.
[2022-02-28] MEDS: MORPHINE 2 MG/ML SYR IV PRN (14:14)
[2022-02-28] MEDS ORDERED: BENZONATATE 100 MG CAP PO PRN (14:39)
--- NOTE | 2022-02-28 14:44 | RAD REPORT ---
EXAM DESCRIPTION: CTAbdomen Pelvis W Contrast - 02/28/2022 2:00 pm CLINICAL HISTORY: Abdominal pain. Pelvic pain COMPARISON: Abdomen Pelvis W Contrast dated 02/27/2022; Abdomen Pelvis W Contrast dated 06/28/2021 ; Abdomen Pelvis W Contrast dated 07/08/2019 TECHNIQUE: Biphasic CT imaging of the abdomen and pelvis was performed with 100 ml non-ionic IV cont rast. All CT scans are performed using dose optimization technique as appropriate and may include automated exposure control or mA/KV adjustment according to patient size. FINDINGS: Small bilateral pleural effusions.Cholecystectomy clips. The liver, spleen, pancreas, adrenal glands and kidneys are within normal limits. No bowel obstruction, free air, free fluid or abscess. The appendix is normal. No evidence of signi ficant lymphadenopathy. Small air bubbles in the urinary bladder. Mild lumbar degenerative changes. IMPRESSION: Small air bubbles in the urinary bladder could represent infection or recent instrumenta tion. Small bilateral pleural effusions.
[2022-02-28] MEDS ORDERED: Levofloxacin500mg IV 500 MG/100 ML BAG IV SCH (16:00)
--- NOTE | 2022-02-28 17:34 | EKG ---
Test Date: 2022-02-27 Test Time: 13:07:32 Battery Repairer: FRANCISCO MEASUREMENT RESULTS: Intervals: Rate: 68 AR: 158 QRSD: 142 QT: 452 QTc: 480 [place]: P: 71 AR: 158 QRS: 120 T: 58 INTERPRETIVE STATEMENTS: Normal sinus rhythm Right axis deviation Nonspecific intraventricular block Abnormal ECG Compared to ECG 02/15/2022 05:12:13 Right-axis deviation now present Sinus arrhythmia no longer present Left-axis deviation no longer present Left bundle-branch block no longer present Electronically Signed On 02-28-22 17:31:37 SPAC[employer] TYPE BAR AND SEGMENT by Preston Tubbs
--- NOTE | 2022-02-28 20:31 | P.PN ---
Date of Service: 03/01/22 Subjective: ROS: A complete review of systems was performed and is negative except as mentioned above Physical Exam: Gen: NAD, AOx3 HEENT: normal conjunctiva, sclera anicteric CV: regular rate & rhythm, no edema Pulm: non-labored respirations, clear bilaterally Abd: soft, non-tender, non-distended MSK: no contractures, no tenderness Skin: no rashes, no lesions Neuro: normal speech, normal affect, moves all extremities vitals reviewed Problem List RLQ / suprapubic pain HTN microcytic anemia h/o kidney stones chronic combined systolic/diastolic CHF h/o CVA abd pain etiology unclear CT abd/pelvis x2 - initially borderline prominent appendix, normal on repeat noted air in bladder unclear if UA was done from straight cath or clean catch pt did have cath specimen on 02/15 - ~[address] Kin consulted for possible appendicitis continue Zosyn pain control check bladder/renal U/S Dispo: Time 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
[2022-02-28] MEDS ORDERED: ATORVASTATIN 20 MG TAB PO SCH (21:00)
[2022-03-01 03:42] LABS: Absolute Lymphocytes (CBC) 1.8 K/uL (0.7-4.9); Hematocrit 31.9 % (36.0-45.0); Lymphocytes % 20.5 % (15.3-44.8); MCV 78.7 fL (80-100); MPV 8.6 fL (7.6-11.3); RBC Red Blood Cell Count 4.06 M/uL (3.86-4.86)
[2022-03-01] MEDS: PIPER TAZO 3.375 GM in NA CHLORIDE 0.9% 100 ML IV SCH ×2 (05:48→14:07)
[2022-03-01] MEDS: NA CHLORIDE 0.9% 1,000 ML IV SCH (05:53)
--- NOTE | 2022-03-01 08:12 | RAD REPORT ---
EXAM DESCRIPTION: US - Renal Ultrasound-Complete - 02/28/2022 11:41 pm CLINICAL HISTORY: Right flank pain. Suprapubic pain COMPARISON: CT February 26, 2022 FINDINGS: The right kidney measures 10 cm with a normal echotexture. The left kidney measures 10 cm with a normal echotexture. Hydronephrosis is not seen. No gross abnormality of bladder IMPRESSION: Unremarkable renal ultrasound.
[2022-03-01] MEDS ORDERED: LOSARTAN POTASSIUM 50 MG TABLET PO SCH (09:00)
[2022-03-01] MEDS ORDERED: HOME MED 1 EA UNK (Losartan Potassium [Cozaar] 25 MG Tablet) PO SCH (09:00)
[2022-03-01] MEDS ORDERED: carvediloL 6.25 MG TAB PO SCH (09:00)
[2022-03-01 10:41] VITALS: O2SAT 95
[2022-03-01] MEDS ORDERED: PIPERACIL/TAZO 3.375 GM VIAL IV ONE (14:06)
[2022-03-01] MEDS ORDERED: NA CHLORIDE 0.9% 100 ML IV ONE (14:07)
--- NOTE | 2022-03-01 15:29 | P.DS ---
Admission Date: 02/27/22 Discharge Date: 03/01/22 Disposition: ROUTINE DISCHARGE Discharge Condition: GOOD Reason for Admission: Right lower quadrant pain Consultations: General Surgery - Dr. Sanderson Brief History of Present Illness: 86 years of age Japanese-speaking only has been complaining of acute right lower quadrant pain for the past 3 days denies any nausea vomiting diarrhea complains of mild to moderate pain. No BM in ~4 days Hospital Course: Problem List RLQ / suprapubic pain, resolved; suspect kidney stone HTN microcytic anemia h/o kidney stones chronic combined systolic/diastolic CHF h/o CVA Patient presented with RLQ abdominal pain. CT Abdomen/pelvis notable for small amount of air in bladder and questionable distention of appendix. General surgery was consulted and did not suspect appendicitis based on review of imaging and exam. Repeat CT abd/pelvis with normal appearance of appendix. No other acute findings were note. Patient had persistent RLQ pain -not worsened by anything in particular and relieved with morphine. She was empirically treated with IV zosyn for possible enteritis vs UTI. Urine was negative for bacteruria, she remained afebrile, and without leukocytosis. Her pain suddenly resolved on 02/28, and her diet was advanced. She was pain free / didn't require pain medication for ~>24hrs, tolerating diet, and voiding without issue. Family also report patient had 2 large BMs after 2nd CT / before pain resolved. Unclear exact etiology of patient's symptoms, however highly suspicious for kidney stone, possibly exacerbated by constipation. She had not had a BM in a few days, when typically she goes daily. Suspect she had a small stone and passed, which would explain the persistent pain, the location, and sudden resolution. Continue home medications as prescribed. To complete 7 day course of antibiotics, 5 days of augmentin prescribed. Patient was recently hospitalized for CHF and asthma exacerbation. Lasix was held during this hospitalization due to decreased PO intake. Recommended careful fluid balance to avoid over-dehydration. Vital Signs/Physical Exam: Temp Pulse Resp BP Pulse Ox 98.5 F 72 18 153/70 H 96 03/01/22 12:00 03/01/22 12:00 03/01/22 12:00 03/01/22 12:00 03/01/22 12:00 General: Alert, In no apparent distress, Oriented x3 HEENT: EOMI, Sclerae nonicteric Respiratory: Clear to auscultation bilaterally, Normal air movement Cardiovascular: No edema, Regular rate/rhythm Gastrointestinal: Soft and benign, Non-distended, No tenderness Musculoskeletal: No contractures, No tenderness Integumentary: No rashes, No breakdown Neurological: Normal speech, Normal strength at 5/5 x4 extr, Normal affect Laboratory Data at Discharge: WBC 9.00 K/uL (4.3-10.9) 03/01/22 02:34 RBC 4.06 M/uL (3.86-4.86) 03/01/22 02:34 Hgb 10.5 g/dL (12.0-15.0) L 03/01/22 02:34 Hct 31.9 % (36.0-45.0) L 03/01/22 02:34 MCV 78.7 fL (80-100) L 03/01/22 02:34 MCH 25.9 pg (27.0-35.0) L 03/01/22 02:34 MCHC 32.9 g/dL (32.0-36.0) 03/01/22 02:34 RDW 16.1 % (12.1-15.2) H 03/01/22 02:34 Plt Count 252 K/uL (152-406) 03/01/22 02:34 MPV 8.6 fL (7.6-11.3) 03/01/22 02:34 Neutrophils % 66.9 % (41.7-73.7) 03/01/22 02:34 Lymphocytes % 20.5 % (15.3-44.8) 03/01/22 02:34 Monocytes % 10.3 % (3.3-12.3) 03/01/22 02:34 Eosinophils % 2.1 % (0-4.4) 03/01/22 02:34 Basophils % 0.2 % (0-1.3) 03/01/22 02:34 Absolute Neutrophils 6.0 K/uL (1.8-8.0) 03/01/22 02:34 Absolute Lymphocytes 1.8 K/uL (0.7-4.9) 03/01/22 02:34 Absolute Monocytes 0.9 K/uL (0.1-1.3) 03/01/22 02:34 Absolute Eosinophils 0.2 K/uL (0-0.5) 03/01/22 02:34 Absolute Basophils 0.0 K/uL (0-0.5) 03/01/22 02:34 Sodium 141 mmol/L (136-145) 03/01/22 02:34 Potassium 4.0 mmol/L (3.5-5.1) 03/01/22 02:34 Chloride 106 mmol/L (98-107) 03/01/22 02:34 Carbon Dioxide 28 mmol/L (21-32) 03/01/22 02:34 Anion Gap 11.0 mEq/L (5.0-15.0) 03/01/22 02:34 BUN 5 mg/dL (7-18) L 03/01/22 02:34 Creatinine 0.48 mg/dL (0.55-1.02) L 03/01/22 02:34 Est GFR (CKD-EPI) 93 ml/min (=/>90) 03/01/22 02:34 Glucose 115 mg/dL (74-106) H 03/01/22 02:34 Calcium 8.2 mg/dL (8.5-10.1) L 03/01/22 02:34 Total Bilirubin 0.3 mg/dL (0.2-1.0) 02/28/22 02:54 AST 18 U/L (15-37) 02/28/22 02:54 ALT 23 U/L (13-56) 02/28/22 02:54 Alkaline Phosphatase 71 U/L (45-117) 02/28/22 02:54 Serum Total Protein 5.5 g/dL (6.4-8.2) L 02/28/22 02:54 Albumin 2.5 g/dL (3.4-5.0) L 02/28/22 02:54 Globulin 3.0 g/dL (2.3-3.5) 02/28/22 02:54 Albumin/Globulin Ratio 0.8 (1.1-1.8) L 02/28/22 02:54 Lipase 314 U/L (73-393) 02/27/22 13:28 Urine pH 6.0 (5.0-7.0) 02/27/22 12:56 Ur Specific [employer] 1.025 (1.005-1.030) 02/27/22 12:56 Glucose (UA)(Auto) Negative (Negative) 02/27/22 12:56 Urine Ketones Negative (Negative) 02/27/22 12:56 Urine Blood 1+ (Negative) H 02/27/22 12:56 Urine Nitrite Negative (Negative) 02/27/22 12:56 Ur Leukocyte Esterase Trace (Negative) H 02/27/22 12:56 Urine RBC 5-10 /HPF (None Seen) H 02/27/22 13:00 Urine WBC 5-10 /HPF (<5) 02/27/22 13:00 Urine WBC Clumps Rare /HPF (None Seen) 02/27/22 13:00 Ur Squamous Epith Cells <5 /HPF (None Seen) 02/27/22 13:00 U Non-Squamous Epi Cells <5 /HPF (None Seen) 02/27/22 13:00 Unidentified Crystals Few /HPF (None Seen) 02/27/22 13:00 Urine Bacteria <20 /HPF (<20) 02/27/22 13:00 Urine Mucus Slight /HPF (None Seen) 02/27/22 13:00 Urine Culture Reflexed Not needed 02/27/22 13:00 Urine Total Protein Negative (Negative) 02/27/22 12:56 SARS-CoV-2 Ag (Rapid) Negative (Negative) 02/27/22 16:29 Home Medications: Aspirin Chewable [Aspirin Chewable*] 81 mg PO DAILY 02/15/22 Atorvastatin Calcium [Lipitor*] 20 mg PO BEDTIME 02/15/22 Benzonatate [Tessalon [place]*] 200 mg PO TIDP PRN 02/15/22 Losartan Potassium [Cozaar] 25 mg PO DAILY 02/15/22 carvediloL [Coreg*] 6.25 mg PO DAILY 02/15/22 Furosemide [Lasix*] 20 mg PO DAILY #30 tab 02/17/22 Amox/Clavulanate [Augmentin 875-125 Tab] 1 tab PO BID 5 Days #10 tab 03/01/22 New Medications: Amox/Clavulanate [Augmentin 875-125 Tab] 1 tab PO BID 5 Days #10 tab Physician Discharge Instructions: Patient presented with RLQ abdominal pain. CT Abdomen/pelvis notable for small amount of air in bladder and questionable distention of appendix. General surgery was consulted and did not suspect appendicitis based on review of imaging and exam. Repeat CT abd/pelvis with normal appearance of appendix. No other acute findings were note. Patient had persistent RLQ pain -not worsened by anything in particular and relieved with morphine. She was empirically treated with IV zosyn for possible enteritis vs UTI. Urine was negative for bacteruria, she remained afebrile, and without leukocytosis. Her pain suddenly resolved on 02/28, and her diet was advanced. She was pain free / didn't require pain medication for ~>24hrs, tolerating diet, and voiding without issue. Family also report patient had 2 large BMs after 2nd CT / before pain resolved. Unclear exact etiology of patient's symptoms, however highly suspicious for kidney stone, possibly exacerbated by constipation. She had not had a BM in a few days, when typically she goes daily. Suspect she had a small stone and passed, which would explain the persistent pain, the location, and sudden resolution. Continue home medications as prescribed. To complete 7 day course of antibiotics, 5 days of augmentin prescribed. Patient was recently hospitalized for CHF and asthma exacerbation. Lasix was held during this hospitalization due to decreased PO intake. Recommended careful fluid balance to avoid over-dehydration. Followup: NONE,NONE [Primary Care Provider] - Time spent managing pt's care (in minutes): 45
[2022-03-01] MEDS ORDERED: carvediloL 6.25 MG TAB PO ONE (16:14)
[2022-03-01 16:21] VITALS: BP 164/72; TEMP 98.2
== END 2022-03-01 16:33 | disposition home or self-care (01) ==
LOC: ER 12:33 → ERHOLD 15:48 → 2ND 17:56 → OBSVTOIN 03-01 12:04 → INTOOBSV 03-01 12:04
PROVIDERS: ADMIT Internal Medicine Sleep Medicine; ATTEND Hospitalist
DX: R10.31 Right lower quadrant pain (principal); K59.00 Constipation, unspecified; N20.0 Calculus of kidney; I10 Essential (primary) hypertension; D50.9 Iron deficiency anemia, unspecified; J45.909 Unspecified asthma, uncomplicated; I50.42 Chronic combined systolic (congestive) and diastolic (congestive) heart failure; Z86.73 Personal history of transient ischemic attack (TIA), and cerebral infarction without residual deficits; Z20.822 Contact with and (suspected) exposure to COVID-19
CPT/HCPCS: 96365; 96361; 93005; 85025 ×3; 80048; 36415 ×2; 83690; 80053 ×2; 74177 ×2; 76770; 96375; 99285; 87811; Q9967 ×2; J2543 ×6; J2270 ×4; J7030 ×5; J2405; 81003; 81015; G0378

== ENCOUNTER 2022-03-11 19:37 | Emergency (ER) | payer OTHER ==
--- OUTSIDE RECORDS SUMMARY | 2022-03-11 19:47 | XMS REPORT | Continuity of Care Document ---
:1935 Author Organization [facility] t Address [address] [place] [address] Care Team Providers Name Role Phone Carmelita MURGUIA, Wu Primary Care Physician LILIANA LI Attending Clinician Unavailable ANGELA CUNNINGHAM Attending Clinician Unavailable WON MATT Attending Clinician Unavailable WON MATT Attending Clinician Unavailable RENY STEVENSON Attending Clinician Unavailable Lab, Ang - Db Attending Clinician Unavailable Araseli Mosqueda Attending Clinician Tamela Borja Attending Clinician Unknown, Attending Attending Clinician Unavailable TAMELA GUTIERREZ Attending Clinician Unavailable Doctor Unassigned, [place] Attending Clinician Unavailable CHARY DONALD Attending Clinician Unavailable Chary Infante Attending Clinician DANIEL PÉREZ Attending Clinician Unavailable Won Matt MD Attending Clinician ITALIA PRESTON Attending Clinician Unavailable Keerthi Cuenca MD Attending Clinician Bib MURGUIA, Ree Attending Clinician Only, Ang Db Test Attending Clinician Unavailable Rambo INSTRUCTOR PRODUCT INSPECTION, Tera Attending Clinician TERA RICKS Attending Clinician Unavailable KALYN PARADA Attending Clinician Unavailable KEERTHI CUENCA Attending Clinician Unavailable Amaya Rodriguez Attending Clinician Randal MURGUIA, eGrardo Attending Clinician Cristobal RN, Pamela Roman Attending Clinician Unavailable Austin Hobson MD Attending Clinician AUSTIN HOBSON Attending Clinician Unavailable JESSICA ERIC Attending Clinician Unavailable AMAYA ARITA Attending Clinician Unavailable Jessica Alvarez Attending Clinician CECI LO K.H. Attending Clinician Unavailable Teresita MURGUIA, Sendbekah K.H. Attending Clinician Vaccine, Ang Db Cbc Fam Attending Clinician Unavailable Lab, Adc Fam Pob I Attending Clinician Unavailable Beto MURGUIA, Daniel Attending Clinician Provider, [facility] Attending Clinician Unavailable Mine Blair Attending Clinician MINE NO Attending Clinician Unavailable Ethan Scott DO Attending Clinician 1, Adc Lab Attending Clinician Unavailable Renata Thacker Attending Clinician Unavailable Mirella Villalobos Attending Clinician [phone] Shy Miller Attending Clinician Unavailable 2, Adc Lab Attending Clinician Unavailable LILIANA LI Admitting Clinician Unavailable WON MATT Admitting Clinician Unavailable AUSTIN HOBSON Admitting Clinician Unavailable ADRIANA HARTMANN Admitting Clinician Unavailable Payers Payer Name Policy Type Policy Number Effective Date Expiration Date S kim AARP/MEDICARE [id number] 2019 COMPLETE 00:00:00 [place]ART[place]/AARP [id number] 2019 MEDICARE 00:00:00 ADVANTAGE MEDICAID [place] [id number] 2017 [place] 00:00:00 [facility] [id number] 2019 ADVANTAGE HMO 00:00:00 -[facility]-MEDICAID - [id number] 2017 MEDICAID 00:00:00 [id number] [facility] [id number] [facility] [id number] 2019 2020 [facility] - 00:00:00 00:00:00 Community MEDICARE MGD Health CARE Problems Condition Condition [...] Medical Branch Uses Uses Disease Active Univers Tristanian as Tristanian as -28 it y of primary primary 00:00: [place] spoken spoken 00 Medical language language Branch History of History of Disease Active Overview : Univers CVA CVA - Form[place]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 (cerebrova (cerebrova 00:00: g [...] adult, 8-29 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: [place]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 00 Me dical , , Branch uncomplica uncomplica kendrick kendrick 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 9-30 it y of hypothyroi hypothyroi 00:[place] dism dism 00 Medical Branch Memory Memory Disease Active [facility] impairment impairment 9-25 it y of 00:00: [place] [facility] Hair loss Hair loss Disease [...] both 7-20 ity of feet feet 00:00: [place] [facility] Abdominal Abdominal Disease [facility] Sepsis Sepsis Disease Active [facility] [...] Univers stone stone 0-15 ity of 00:00: [place] 00 Medical Branch Abnormal Abnormal Disease Active 2017-02 Overview: Un briana liver liver 0-15 [place] ity of ultrasound ultrasound 00:00: g of this 00 note Medical might be Branch different from the original. Likely hepatic steatosis with focal areas of fatty sparing Weakness Weakness Disease Active Unive rs 4-25 ity of 00:00: [place] [facility] 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 0-05 it y of 2 diabetes 2 diabetes [place] mellitus mellitus 00 Medica l Branch Essential Essential Disease Active 2016-02 Uni vers hypertensi hypertensi 0-02 it y of on on 00:00: [place] [address] Medical Branch HLD HLD Disease Active 2016-02 Univers (hyperlipi (hyperlipi 0-02 it y of demia) demia) 00:00: [place] [address] Medical Branch History of History of Disease Active 2016-02 U nivers chest pain chest pain 0-02 it y of 00:00: [place] [address] Medical Branch Palpitatio Palpitatio Disease Active 2016-02 U nivers ns ns 0-02 ity of 00:00: [place] [address] Medical Branch Osteoporos Osteoporos Disease Active U nivers is is ity of [facility] Abnormal Abnormal Disease Active Unive rs EKG EKG ity of [facility] Asthma Asthma Disease Active [facility] of Medicin e History of History of Disease [facility] [place] with with of residual residual Medici n left-sided left-sided e weakness weakness No known No known Disease [facility] active active [place] problems problems of Medicin e Allergies, Adverse Reactions, Alerts Allergy Allergy Status Severity Reaction(s) Onset Inactive Treating Comm ents Source Name Type Date Date Clinician NO KNOWN Allergy Active [facility] NO KNOWN Drug Active Univers ALLERGIE Class ity of [facility] Social History Social Habit Start Date Stop Date Quantity Comments Source History SDOH [facility] Alcohol Std Medical Cent[facility] r Drinks History SDOH [facility] Alcohol Binge Medical Marilyn ter History SDOH [facility] Alcohol Comment Medical C enter Exposure to 2022-03-01 2022-03-11 Not sure University SARS-CoV-2 00:00:00 08:07:00 [facility] (event) Branch Alcohol intake 2019-07-12 2019-07-[address] [facility] es 00:00:00 00:00:00 non-drinker of Medical Ce nter alcohol (finding) History SDOH 2019-07-10 2019-07-[address] [facility] Alcohol Frequency 00:00:00 00:00:00 [facility] Tobacco use and 2019-07-09 2019-07-[address] [facility] Susan kes exposure 00:00:00 00:00:00 [facility] Sex [birth year] MOISES Lafleur 00:00:00 00:00:00 [facility] Smoking Status Start Date Stop Date Source Never smoked tobacco [facility] Medical Branch Medications Ordered Filled Start Stop Current Ordering Indication Dosage Frequency Signature Comments Components Source Medication Medication Date Date Medication? Clinician (SIG) Name Name losartan 50 Yes [id number] 50mg Take 1 Univers mg tablet 1-27 tablet by ity o f 00:00: mouth [place] 00 daily. Medical Branch furosemide Yes [id number] 20mg Take 1 U nivers 20 mg 1-27 tablet by ity of tablet 00:00: mouth [place] 00 daily. Medical Branch losartan 50 Yes [id number] 50mg Take 1 Univers mg tablet 1-27 tablet by ity o f 00:00: mouth [place] 00 daily. Medical Branch furosemide Yes [id number] 20mg Take 1 U nivers 20 mg 1-27 tablet by ity of tablet 00:00: mouth [place] 00 daily. Medical Branch losartan 50 Yes [id number] 50mg Take 1 Univers mg tablet 1-27 tablet by ity o f 00:00: mouth [place] 00 daily. Medical Branch furosemide Yes [id number] 20mg Take 1 U nivers 20 mg 1-27 tablet by ity of tablet 00:00: mouth [place] 00 daily. Medical Branch losartan 50 0 Yes [id number] 50mg Take 1 Univers mg tablet 1-27 tablet by ity o f 00:00: mouth [place] 00 daily. Medical Branch furosemide Yes [id number] 20mg Take 1 U nivers 20 mg 1-27 tablet by ity of tablet 00:00: mouth [place] 00 daily. Medical Branch losartan 50 0 Yes [id number] 50mg Take 1 Univers mg tablet 1-27 tablet by ity o f 00:00: mouth [place] 00 daily. Medical Branch furosemide Yes [id number] 20mg Take 1 U nivers 20 mg 1-27 tablet by ity of tablet 00:00: mouth [place] 00 daily. Medical Branch carvediloL 2021-02 Yes [id number] 6.25mg Take 1 Univers 6.25 mg 2-09 tablet by ity of tablet 00:00: mouth 2 [place] 00 (two) Medical times Branch daily with meals. atorvastati 2021-02 Yes [id number] 20mg Take 1 Univers n 20 mg 2-09 tablet by ity of tablet 00:00: mouth at [place] 00 bedtime. Medical Branch omeprazole 2021-02 Yes [id number] 1{tbl} Take 1 Univers 20 mg TbLD 2-09 tablet by ity of 00:00: mouth [place] 00 daily. Medical Branch tolterodine 2021-02 Yes [id number] 2mg Take 1 Univers LA 2 mg 24 2-09 capsule by ity of hr capsule 00:00: mouth [place] 00 daily. Medical Branch carvediloL 2021-02 Yes [id number] 6.25mg Take 1 Univers 6.25 mg 2-09 tablet by ity of tablet 00:00: mouth 2 00 (two) Medical times Branch daily with meals. atorvastati 2021-02 Yes [id number] 20mg Take 1 Univers n 20 mg 2-09 tablet by ity of tablet 00:00: mouth at [place] 00 bedtime. Medical Branch omeprazole 2021-02 Yes [id number] 1{tbl} Take 1 Univers 20 mg TbLD 2-09 tablet by ity of 00:00: mouth [place] 00 daily. Medical Branch tolterodine 2021-02 Yes [id number] 2mg Take 1 Univers LA 2 mg 24 2-09 capsule by ity of hr capsule 00:00: mouth [place] 00 daily. Medical Branch carvediloL 2021-02 Yes [id number] 6.25mg Take 1 Univers 6.25 mg 2-09 tablet by ity of tablet 00:00: mouth 2 00 (two) Medical times Branch daily with meals. atorvastati 2021-02 Yes [id number] 20mg Take 1 Univers n 20 mg 2-09 tablet by ity of tablet 00:00: mouth at [place] 00 bedtime. Medical Branch omeprazole 2021-02 Yes [id number] 1{tbl} Take 1 Univers 20 mg TbLD 2-09 tablet by ity of 00:00: mouth [place] 00 daily. Medical Branch tolterodine 2021-02 Yes [id number] 2mg Take 1 Univers LA 2 mg 24 2-09 capsule by ity of hr capsule 00:00: mouth [place] 00 daily. Medical Branch carvediloL 2021-02 Yes [id number] 6.25mg Take 1 Univers 6.25 mg 2-09 tablet by ity of tablet 00:00: mouth 2 [place] 00 (two) Medical times Branch daily with meals. atorvastati 2021-02 Yes [id number] 20mg Take 1 Univers n 20 mg 2-09 tablet by ity of tablet 00:00: mouth at [place] 00 bedtime. Medical Branch omeprazole 2021-02 Yes [id number] 1{tbl} Take 1 Univers 20 mg TbLD 2-09 tablet by ity of 00:00: mouth [place] 00 daily. Medical Branch tolterodine 2021-02 Yes [id number] 2mg Take 1 Univers LA 2 mg 24 2-09 capsule by ity of hr capsule 00:00: mouth [place] 00 daily. Medical Branch carvediloL 2021-02 Yes [id number] 6.25mg Take 1 Univers 6.25 mg 2-09 tablet by ity of tablet 00:00: mouth 2 (two) Medical times Branch daily with meals. atorvastati 2021-02 Yes [id number] 20mg Take 1 Univers n 20 mg 2-09 tablet by ity of tablet 00:00: mouth at [place] 00 bedtime. Medical Branch omeprazole 2021-02 Yes [id number] 1{tbl} Take 1 Univers 20 mg TbLD 2-09 tablet by ity of 00:00: mouth [place] 00 daily. Medical Branch tolterodine 2021-02 Yes [id number] 2mg Take 1 Univers LA 2 mg 24 2-09 capsule by ity of hr capsule 00:00: mouth [place] 00 daily. Medical Branch carvediloL 2021-02 Yes [id number] 6.25mg Take 1 Univers 6.25 mg 2-09 tablet by ity of tablet 00:00: mouth (two) Medical times Branch daily with meals. atorvastati 2021-02 Yes [id number] 20mg Take 1 Univers n 20 mg 2-09 tablet by ity of tablet 00:00: mouth at [place] 00 bedtime. Medical Branch omeprazole 2021-02 Yes [id number] 1{tbl} Take 1 Univers 20 mg TbLD 2-09 tablet by ity of 00:00: mouth [place] 00 daily. Medical Branch tolterodine 2021-02 Yes [id number] 2mg Take 1 Univers LA 2 mg 24 2-09 capsule by ity of hr capsule 00:00: mouth [place] 00 daily. Medical Branch carvediloL 2021-02 Yes [id number] 6.25mg Take 1 Univers 6.25 mg 2-09 tablet by ity of tablet 00:00: mouth 2 (two) Medical times Branch daily with meals. atorvastati 2021-02 Yes [id number] 20mg Take 1 Univers n 20 mg 2-09 tablet by ity of tablet 00:00: mouth at [place] 00 bedtime. Medical Branch omeprazole 2021-02 Yes [id number] 1{tbl} Take 1 Univers 20 mg TbLD 2-09 tablet by ity of 00:00: mouth [place] 00 daily. Medical Branch tolterodine 2021-02 Yes [id number] 2mg Take 1 Univers LA 2 mg 24 2-09 capsule by ity of hr capsule 00:00: mouth [place] 00 daily. Medical Branch carvediloL 2021-02 Yes [id number] 6.25mg Take 1 Univers 6.25 mg 2-09 tablet by ity of tablet 00:00: mouth 2 (two) Medical times Branch daily with meals. atorvastati 2021-02 Yes [id number] 20mg Take 1 Univers n 20 mg 2-09 tablet by ity of tablet 00:00: mouth at [place] 00 bedtime. Medical Branch omeprazole 2021-02 Yes [id number] 1{tbl} Take 1 Univers 20 mg TbLD 2-09 tablet by ity of 00:00: mouth [place] 00 daily. Medical Branch tolterodine 2021-02 Yes [id number] 2mg Take 1 Univers [place] 2 mg 24 2-09 capsule by ity of hr capsule 00:00: mouth [place] 00 daily. Medical Branch carvediloL 2021-02 Yes [id number] 6.25mg Take 1 Univers 6.25 mg 2-09 tablet by ity of tablet 00:00: mouth 2 00 (two) Medical times Branch daily with meals. atorvastati 2021-02 Yes [id number] 20mg Take 1 Univers n 20 mg 2-09 tablet by ity of tablet 00:00: mouth at [place] 00 bedtime. Medical Branch omeprazole 2021-02 Yes [id number] 1{tbl} Take 1 Univers 20 mg TbLD 2-09 tablet by ity of 00:00: mouth [place] 00 daily. Medical Branch tolterodine 2021-02 Yes [id number] 2mg Take 1 Univers [place] 2 mg 24 2-09 capsule by ity of hr capsule 00:00: mouth [place] 00 daily. Medical Branch carvediloL 2021-02 Yes [id number] 6.25mg Take 1 Univers 6.25 mg 2-09 tablet by ity of tablet 00:00: mouth 2 (two) Medical times Branch daily with meals. atorvastati 2021-02 Yes [id number] 20mg Take 1 Univers n 20 mg 2-09 tablet by ity of tablet 00:00: mouth at [place] 00 bedtime. Medical Branch omeprazole 2021-02 Yes [id number] 1{tbl} Take 1 Univers 20 mg TbLD 2-09 tablet by ity of 00:00: mouth [place] 00 daily. Medical Branch tolterodine 2021-02 Yes [id number] 2mg Take 1 Univers [place] 2 mg 24 2-09 capsule by ity of hr capsule 00:00: mouth [place] 00 daily. Medical Branch carvediloL 2021-02 Yes [id number] 6.25mg Take 1 Univers 6.25 mg 2-09 tablet by ity of tablet 00:00: mouth (two) Medical times Branch daily with meals. atorvastati 2021-02 Yes [id number] 20mg Take 1 Univers n 20 mg 2-09 tablet by ity of tablet 00:00: mouth at [place] 00 bedtime. Medical Branch omeprazole 2021-02 Yes [id number] 1{tbl} Take 1 Univers 20 mg TbLD 2-09 tablet by ity of 00:00: mouth [place] 00 daily. Medical Branch tolterodine 2021-02 Yes [id number] 2mg Take 1 Univers [place] 2 mg 24 2-09 capsule by ity of hr capsule 00:00: mouth 00 daily. Medical Branch carvediloL 2021-02 Yes [id number] 12.5mg Take 1 Univers 12.5 mg 1-11 tablet by ity of tablet 00:00: mouth 2 (two) Medical times Branch daily with meals. Additional refills per cardio carvediloL 2021-02 Yes [id number] 12.5mg Take 1 Univers 12.5 mg 1-11 tablet by ity of tablet 00:00: mouth 2 (two) Medical times Branch daily with meals. Additional refills per cardio carvediloL 2021-02- No [id number] 12.5mg Take 1 Univers 12.5 mg 1-11 12-09 tablet by ity of tablet 00:00: 00:00 mouth 2 [place] 00 :00 (two) Medical times Branch daily with meals. Additional refills per cardio carvediloL 2021-02- No [id number] 12.5mg Take 1 Univers 12.5 mg 02-23 tablet by ity of tablet 00:00: 00:00 mouth 2 [place] 00 :00 (two) Medical times Branch daily with meals. Additional refills per cardio METFORMIN 2021-02 Yes Take 1 Univer s 500 mg 24 -09 tablet by ity o f hr tablet 00:00: mouth once [place] 00 daily with Medical breakfast Branch METFORMIN 2021-02 Yes Take 1 Univer s 500 mg 24 -09 tablet by ity o f hr tablet 00:00: mouth once [place] 00 daily with Medical breakfast Branch METFORMIN 2021-02 Yes Take 1 Univer s 500 mg 24 -09 tablet by ity o f hr tablet [...] ity o f tablet 14:33: 00:00 daily. [place] 53 :00 Medical Branch spironolact 2021-02- No 25mg Take 25 mg Univers one 25 mg 0-21 10-21 by mouth ity o f tablet 14:33: 00:00 daily. [place] 53 :00 Medical Branch benzonatate 2021-02 Yes [id number] 200mg Take 1 Univers 200 mg 0-21 capsule by ity of capsule 00:00: mouth 3 [place] 00 (three) Medical times Branch daily as needed for Cough. atorvastati 2021-02 Yes [id number] 40mg Take 1 Univers n 40 mg 0-21 tablet by ity of tablet 00:00: mouth at [place] 00 bedtime. Medical Branch losartan 25 2021-02 Yes [id number] 25mg Take 1 Univers mg tablet 0-21 tablet by ity o f 00:00: mouth at [place] 00 bedtime. Medical Branch furosemide 2021-02 Yes [id number] 20mg Take 1 U nivers 20 mg 0-21 tablet by ity of tablet 00:00: mouth [place] 00 daily. Medical Branch spironolact 2021-02 Yes [id number] 25mg Take 1 Univers one 25 mg 0-21 tablet by ity o f tablet 00:00: mouth [place] 00 daily. Medical Branch benzonatate 2021-02 Yes [id number] 200mg Take 1 Univers 200 mg 0-21 capsule by ity of capsule 00:00: mouth 3 00 (three) Medical times Branch daily as needed for Cough. atorvastati 2021-02 Yes [id number] 40mg Take 1 Univers n 40 mg 0-21 tablet by ity of tablet 00:00: mouth at [place] 00 bedtime. Medical Branch losartan 25 2021-02 Yes [id number] 25mg Take 1 Univers mg tablet 0-21 tablet by ity o f 00:00: mouth at [place] 00 bedtime. Medical Branch furosemide 2021-02 Yes [id number] 20mg Take 1 U nivers 20 mg 0-21 tablet by ity of tablet 00:00: mouth [place] 00 daily. Medical Branch spironolact 2021-02 Yes [id number] 25mg Take 1 Univers one 25 mg 0-21 tablet by ity o f tablet 00:00: mouth 00 daily. Medical Branch benzonatate 2021-02 Yes [id number] 200mg Take 1 Univers 200 mg 0-21 capsule by ity of capsule 00:00: mouth 3 (three) Medical times Branch daily as needed for Cough. atorvastati 2021-02 Yes [id number] 40mg Take 1 Univers n 40 mg 0-21 tablet by ity of tablet 00:00: mouth at [place] 00 bedtime. Medical Branch losartan 25 2021-02 Yes [id number] 25mg Take 1 Univers mg tablet 0-21 tablet by ity o f 00:00: mouth at [place] 00 bedtime. Medical Branch furosemide 2021-02 Yes [id number] 20mg Take 1 U nivers 20 mg 0-21 tablet by ity of tablet 00:00: mouth [place] 00 daily. Medical Branch spironolact 2021-02 Yes [id number] 25mg Take 1 Univers one 25 mg 0-21 tablet by ity o f tablet 00:00: mouth [place] 00 daily. Medical Branch benzonatate 2021-02 Yes [id number] 200mg Take 1 Univers 200 mg 0-21 capsule by ity of capsule 00:00: mouth 3 [place] 00 (three) Medical times Branch daily as needed for Cough. atorvastati 2021-02 Yes [id number] 40mg Take 1 Univers n 40 mg 0-21 tablet by ity of tablet 00:00: mouth at [place] 00 bedtime. Medical Branch losartan 25 2021-02 Yes [id number] 25mg Take 1 Univers mg tablet 0-21 tablet by ity o f 00:00: mouth at [place] 00 bedtime. Medical Branch furosemide 2021-02 Yes [id number] 20mg Take 1 U nivers 20 mg 0-21 tablet by ity of tablet 00:00: mouth [place] 00 daily. Medical Branch spironolact 2021-02 Yes [id number] 25mg Take 1 Univers one 25 mg 0-21 tablet by ity o f tablet 00:00: mouth [place] 00 daily. Medical Branch benzonatate 2021-02 Yes [id number] 200mg Take 1 Univers 200 mg 0-21 capsule by ity of capsule 00:00: mouth 3 (three) Medical times Branch daily as needed for Cough. atorvastati 2021-02 Yes [id number] 40mg Take 1 Univers n 40 mg 0-21 tablet by ity of tablet 00:00: mouth at [place] 00 bedtime. Medical Branch losartan 25 2021-02 Yes [id number] 25mg Take 1 Univers mg tablet 0-21 tablet by ity o f 00:00: mouth at [place] 00 bedtime. Medical Branch furosemide 2021-02 Yes [id number] 20mg Take 1 U nivers 20 mg 0-21 tablet by ity of tablet 00:00: mouth [place] 00 daily. Medical Branch spironolact 2021-02 Yes [id number] 25mg Take 1 Univers one 25 mg 0-21 tablet by ity o f tablet 00:00: mouth [place] 00 daily. Medical Branch benzonatate 2021-02 Yes [id number] 200mg Take 1 Univers 200 mg 0-21 capsule by ity of capsule 00:00: mouth 3 (three) Medical times Branch daily as needed for Cough. atorvastati 2021-02 Yes [id number] 40mg Take 1 Univers n 40 mg 0-21 tablet by ity of tablet 00:00: mouth at [place] 00 bedtime. Medical Branch losartan 25 2021-02 Yes [id number] 25mg Take 1 Univers mg tablet 0-21 tablet by ity o f 00:00: mouth at [place] 00 bedtime. Medical Branch furosemide 2021-02 Yes [id number] 20mg Take 1 U nivers 20 mg 0-21 tablet by ity of tablet 00:00: mouth [place] 00 daily. Medical Branch spironolact 2021-02 Yes [id number] 25mg Take 1 Univers one 25 mg 0-21 tablet by ity o f tablet 00:00: mouth [place] 00 daily. Medical Branch losartan 25 2021-02 Yes [id number] 25mg Take 1 Univers mg tablet 0-21 tablet by ity o f 00:00: mouth at [place] 00 bedtime. Medical Branch furosemide 2021-02 Yes [id number] 20mg Take 1 U nivers 20 mg 0-21 tablet by ity of tablet 00:00: mouth [place] 00 daily. Medical Branch spironolact 2021-02 Yes [id number] 25mg Take 1 Univers one 25 mg 0-21 tablet by ity o f tablet 00:00: mouth [place] 00 daily. Medical Branch losartan 25 2021-02 Yes [id number] 25mg Take 1 Univers mg tablet 0-21 tablet by ity o f 00:00: mouth at [place] 00 bedtime. Medical Branch furosemide 2021-02 Yes [id number] 20mg Take 1 U nivers 20 mg 0-21 tablet by ity of tablet 00:00: mouth [place] 00 daily. Medical Branch spironolact 2021-02 Yes [id number] 25mg Take 1 Univers one 25 mg 0-21 tablet by ity o f tablet 00:00: mouth [place] 00 daily. Medical Branch losartan 25 2021-02 Yes [id number] 25mg Take 1 Univers mg tablet 0-21 tablet by ity o f 00:00: mouth at [place] 00 bedtime. Medical Branch furosemide 2021-02 Yes [id number] 20mg Take 1 U nivers 20 mg 0-21 tablet by ity of tablet 00:00: mouth [place] 00 daily. Medical Branch spironolact 2021-02 Yes [id number] 25mg Take 1 Univers one 25 mg 0-21 tablet by ity o f tablet 00:00: mouth [place] 00 daily. Medical Branch losartan 25 2021-02 Yes [id number] 25mg Take 1 Univers mg tablet 0-21 tablet by ity o f 00:00: mouth at [place] 00 bedtime. Medical Branch furosemide 2021-02 Yes [id number] 20mg Take 1 U nivers 20 mg 0-21 tablet by ity of tablet 00:00: mouth [place] 00 daily. Medical Branch spironolact 2021-02 Yes [id number] 25mg Take 1 Univers one 25 mg 0-21 tablet by ity o f tablet 00:00: mouth [place] 00 daily. Medical Branch spironolact 2021-02 Yes [id number] 25mg Take 1 Univers one 25 mg 0-21 tablet by ity o f tablet 00:00: mouth [place] 00 daily. Medical Branch spironolact 2021-02 Yes [id number] 25mg Take 1 Univers one 25 mg 0-21 tablet by ity o f tablet 00:00: mouth [place] 00 daily. Medical Branch spironolact 2021-02 Yes [id number] 25mg Take 1 Univers one 25 mg 0-21 tablet by ity o f tablet 00:00: mouth [place] 00 daily. Medical Branch spironolact 2021-02 Yes [id number] 25mg Take 1 Univers one 25 mg 0-21 tablet by ity o f tablet 00:00: mouth [place] 00 daily. Medical Branch spironolact 2021-02 Yes [id number] 25mg Take 1 Univers one 25 mg 0-21 tablet by ity o f tablet 00:00: mouth [place] 00 daily. Medical Branch spironolact 2021-02 Yes [id number] 25mg Take 1 Univers one 25 mg 0-21 tablet by ity o f tablet 00:00: mouth [place] 00 daily. Medical Branch spironolact 2021-02 Yes [id number] 25mg Take 1 Univers one 25 mg 0-21 tablet by ity o f tablet 00:00: mouth [place] 00 daily. Medical Branch losartan 25 2021-02- No [id number] 25mg Take 1 Univers mg tablet 0-21 -27 tablet by ity of 00:00: 00:00 mouth at [place] 00 :00 bedtime. Medical Branch furosemide 2021-02- No [id number] 20mg Take 1 Univers 20 mg 0-21 -27 tablet by ity of tablet 00:00: 00:00 mouth [place] 00 :00 daily. Medical Branch losartan 25 2021-02- No [id number] 25mg Take 1 Univers mg tablet 0-21 -27 tablet by ity of 00:00: 00:00 mouth at [place] 00 :00 bedtime. Medical Branch furosemide 2021-02- No [id number] 20mg Take 1 Univers 20 mg 0-21 -27 tablet by ity of tablet 00:00: 00:00 mouth [place] 00 :00 daily. Medical Branch losartan 25 2021-02- No [id number] 25mg Take 1 Univers mg tablet 0-03-11 tablet by ity of 00:00: 00:00 mouth at [place] 00 :00 bedtime. Medical Branch furosemide 2021-02- No [id number] 20mg Take 1 Univers 20 mg 0-05 03-27 tablet by ity of tablet 00:00: 00:00 mouth [place] 00 :00 daily. Medical Branch losartan 25 2021-02- No [id number] 25mg Take 1 Univers mg tablet 003-11 tablet by ity of 00:00: 00:00 mouth at [place] 00 :00 bedtime. Medical Branch furosemide 2021-02- No [id number] 20mg Take 1 Univers 20 mg 0-03-11 tablet by ity of tablet 00:00: 00:00 mouth [place] 00 :00 daily. Medical Branch losartan 25 2021-02- No [id number] 25mg Take 1 Univers mg tablet 003-11 tablet by ity of 00:00: 00:00 mouth at [place] 00 :00 bedtime. Medical Branch furosemide 2021-02- No [id number] 20mg Take 1 [facility] 20 mg 0-03-11 tablet by ity of tablet 00:00: 00:00 mouth [place] 00 :00 daily. Medical Branch atorvastati 2021-02- No [id number] 40mg Take 1 [facility] n 40 mg 0-21 12-09 tablet by ity of tablet 00:00: 00:00 mouth at [place] 00 :00 bedtime. Medical Branch benzonatate 2021-02- No [id number] 200mg Take 1 [facility] 200 mg 0-21 12-09 capsule by ity of capsule 00:00: 00:00 mouth 3 [place] 00 :00 (three) Medical times Branch daily as needed for Cough. atorvastati 2021-02- No [id number] 40mg Take 1 [facility] n 40 mg 0-21 12-09 tablet by ity of tablet 00:00: 00:00 mouth at [place] 00 :00 bedtime. Medical Branch benzonatate 2021-02- No [id number] 200mg Take 1 [facility] 200 mg 0-21 12-09 capsule by ity of capsule 00:00: 00:00 mouth 3 [place] 00 :00 (three) Medical times Branch daily as needed for Cough. Albuterol 2021- No 4{puff} Inhale 4 [facility] Sulfate 9-30 09-30 Puffs by [facility] (VENTOLIN 15:42: 00:00 mouth two of HFA) 108 52 :00 times Medicin (90 Base) daily. e MCG/ACT AERS carvedilol Yes 12.5mg Take 12.5 Art (COREG) 9-30 mg by [place] 12.5 MG 14:53: mouth of tablet 41 daily. Medicin e carvedilol Yes 12.5mg Take 12.5 Art (COREG) 9-30 mg by [place] 12.5 MG 14:53: mouth of tablet 41 daily. Medicin e Albuterol Yes [id number] 4{puff} Inhale 4 [facility] Sulfate 9-30 Puffs by [place] (VENTOLIN 00:00: mouth two of HFA) 108 00 times Medicin (90 Base) daily. e MCG/ACT AERS Fluticasone Yes [id number] 1{puff} Inhale 1 Art -Salmeterol 9-30 Puff by Shanda ge (ADVAIR) 00:00: mouth of 250-50 00 every 12 Medicin MCG/ACT hours. e inhaler albuterol Yes [id number] 2.5mg Take 1 [facility] (PROVENTIL) 9-30 Ampule by Col lege (2.5 mg/3 00:00: nebulizati of mL) 0.083% 00 on every 4 Med icin nebulizer hours as e solution needed for Wheezing. Diclofenac Yes [id number] 5g Apply 5 g Art Sodium 1 % 9-30 topically Kristine ege GEL 00:00: every 6 of 00 hours as Medicin needed for e Pain. Melatonin 0 2021- No Take by [facility] 10 MG TABS 11-01 mouth. Colleg e 10:19: 00:00 of 25 :00 Medicin e Magnesium 0 2021- No Take by [facility] 100 MG CAPS 11-01 mouth. Colle ge 10:19: 00:00 of 22 :00 Medicin e losartan 50 0 Yes [id number] 25mg Take 0.5 [facility] mg tablet 9-12 tablets by ity of 00:00: mouth [place] 00 every Medical evening. Branch losartan 50 2021-0 Yes [id number] 25mg Take 0.5 [facility] mg tablet 9-12 tablets by ity of 00:00: mouth [place] 00 every Medical evening. Branch losartan 50 2021-0 Yes [id number] 25mg Take 0.5 [facility] mg tablet 9-12 tablets by ity of 00:00: mouth [place] 00 every Medical evening. Branch losartan 50 2021-0 Yes [id number] 25mg Take 0.5 [facility] mg tablet 9-12 tablets by ity of 00:00: mouth [place] 00 every Medical evening. Branch losartan 50 2021-0 Yes [id number] 25mg Take 0.5 [facility] mg tablet 9-12 tablets by ity of 00:00: mouth [place] 00 every Medical evening. Branch losartan 50 0 Yes [id number] 25mg Take 0.5 [facility] mg tablet 9-12 tablets by ity of 00:00: mouth [place] 00 every Medical evening. Branch losartan 50 0 Yes [id number] 25mg Take 0.5 [facility] mg tablet 9-12 tablets by ity of 00:00: mouth [place] 00 every Medical evening. Branch losartan 50 0 Yes [id number] 25mg Take 0.5 [facility] mg tablet 9-12 tablets by ity of 00:00: mouth [place] 00 every Medical evening. Branch losartan 50 0 Yes [id number] 25mg Take 0.5 [facility] mg tablet 9-12 tablets by ity of 00:00: mouth [place] 00 every Medical evening. Branch losartan 50 0 Yes [id number] 25mg Take 0.5 [facility] mg tablet 9-12 tablets by ity of 00:00: mouth [place] 00 every Medical evening. Branch losartan 50 2021-0 Yes [id number] 25mg Take 0.5 [facility] mg tablet 9-12 tablets by ity of 00:00: mouth [place] 00 every Medical evening. Branch losartan 50 2021-0 Yes [id number] 25mg Take 0.5 [facility] mg tablet 9-12 tablets by ity of 00:00: mouth [place] 00 every Medical evening. Branch losartan 50 2021-0 Yes [id number] 25mg Take 0.5 [facility] mg tablet 9-12 tablets by ity of 00:00: mouth [place] 00 every Medical evening. Branch losartan 50 2-0 2- No [id number] 25mg Take 0.5 [facility] mg tablet 9 10-21 tablets by ity of 00:00: 00:00 mouth [place] 00 :00 every Medical evening. Branch losartan 50 2-0 2022- No [id number] 25mg Take 0.5 [facility] mg tablet 9-12 10-21 tablets by ity of 00:00: 00:00 mouth [place] 00 :00 every Medical evening. Branch furosemide 2021-0 Yes 40mg Take 40 mg [facility] (LASIX) 40 8-28 by mouth Colle ge MG tablet 00:00: daily. of 00 Medicin e spironolact 2021-0 Yes 25mg Take 25 mg Art one 8-28 by mouth [place] (ALDACTONE) 00:00: daily. of 25 MG 00 Medicin tablet e furosemide 2021-0 Yes 40mg Take 40 mg [facility] (LASIX) 40 8-28 by mouth Colle ge MG tablet 00:00: daily. of 00 Medicin e spironolact 2021-0 Yes 25mg Take 25 mg [facility] one 8-28 by mouth College (ALDACTONE) 00:00: [...] 00 daily with Medical breakfast. Branch metFORMIN 2022-0 Yes 500mg Take 1 [facility] 500 mg 24 7-29 tablet by ity o f hr tablet 00:00: mouth [place] 00 daily with Medical breakfast. Branch metFORMIN 2022-0 Yes 500mg Take 1 [facility]ive rs 500 [...] daily with Medical breakfast. Branch metFORMIN 2021-0 2021- No 500mg Take 1 [facility] ers 500 mg 24 7-29 11-09 tablet by ity of hr tablet 00:00: 00:00 mouth [place] 00 :00 daily with Medical breakfast. Branch losartan 50 2021-0 2021- No [id number] 50mg Take 1 [facility] mg tablet 7-15 09-12 tablet by ity of 00:00: 00:00 mouth [place] 00 :00 daily. Medical Branch Magnesium 2021-0 Yes Take by [facility] 100 MG CAPS 3-21 mouth. Colleg e 10:29: of 08 Medicin e Melatonin 2022-0 Yes Take by [facility] 10 MG TABS 3-21 mouth. [place] 10:29: of 08 Medicin e furosemide 2022-0 Yes 40mg Take 1 Unive [...] tablet by ity of tablet 00:00: mouth [place] 00 daily. Medical Branch furosemide 2021- No 40mg Take 1 [facility] ers 40 mg 3-17 10-21 tablet by ity of tablet 00:00: 00:00 mouth [place] 00 :00 daily. Medical Branch furosemide 2021- No 40mg Take 1 [facility] ers 40 mg 3-17 10-21 tablet by ity of tablet 00:00: 00:00 mouth [place] 00 :00 daily. Medical Branch ATORVASTA 2020-02 Yes [id number] 40mg TAKE 1 [facility] N 40 mg 2-13 TABLET BY ity of tablet 00:00: MOUTH AT [place] [facility]-02 Yes [id number] 40mg TAKE 1 [facility] N 40 mg 2-13 TABLET BY ity of tablet 00:00: MOUTH AT [place] [facility] 2020-02 Yes [id number] 40mg TAKE 1 [facility] N 40 mg 2-13 TABLET BY ity of tablet 00:00: MOUTH AT [place] [facility] 2020-02 Yes [id number] 40mg TAKE 1 [facility] N 40 mg 2-13 TABLET BY ity of tablet 00:00: MOUTH AT [place] [facility] 2020-02 Yes [id number] 40mg TAKE 1 [facility] N 40 mg 2-13 TABLET BY ity of tablet 00:00: MOUTH AT [place] [facility] 2020-02 Yes [id number] 40mg TAKE 1 [facility] N 40 mg 2-13 TABLET BY ity of tablet 00:00: MOUTH AT [place] [facility] 2020-02 Yes [id number] 40mg TAKE 1 [facility] N 40 mg 2-13 TABLET BY ity of tablet 00:00: MOUTH AT [place] [facility] 2020-02 Yes [id number] 40mg TAKE 1 [facility] N 40 mg 2-13 TABLET BY ity of tablet 00:00: MOUTH AT [place] [facility] 2020-02 Yes [id number] 40mg TAKE 1 [facility] N 40 mg 2-13 TABLET BY ity of tablet 00:00: MOUTH AT [address] [facility] 2020-02 Yes [id number] 40mg TAKE 1 [facility] N 40 mg 2-13 TABLET BY ity of tablet 00:00: MOUTH AT [address] 2020-02 Yes [id number] 40mg TAKE 1 [facility] N 40 mg 2-13 TABLET BY ity of tablet 00:00: MOUTH AT [place] [facility] 2020-02 Yes [id number] 40mg TAKE 1 [facility] N 40 mg 2-13 TABLET BY ity of tablet 00:00: MOUTH AT [place] [facility] 2020-02 Yes [id number] 40mg TAKE 1 [facility] N 40 mg 2-13 TABLET BY ity of tablet 00:00: MOUTH AT [place] [facility] 2020-02 Yes [id number] 40mg TAKE 1 [facility] N 40 mg 2-13 TABLET BY ity of tablet 00:00: MOUTH AT [address] 2020-02- No [id number] 40mg TAKE 1 [facility] N 40 mg 2-13 10-21 TABLET BY ity of tablet 00:00: 00:00 MOUTH AT [place] 00 :00 [facility] 2020-02- No [id number] 40mg TAKE 1 [facility] N 40 mg 2-13 10-21 TABLET BY ity of tablet 00:00: 00:00 MOUTH AT [place] 00 :00 [facility] azelastine 2020-02 Yes [id number] 1{spray Use 1 [facility] 137 mcg 2-02 } J[place] in ity of (0.1 %) 00:00: each [place] nasal spray 00 nostril 2 Med ical (two) Branch times daily. Use in each nostril as directed fluticasone 2020-02 Yes [id number] 2{puff} Inhale 2 [facility] propionate 2-02 Puffs 2 ity of (FLOVENT 00:00: (two) [place] HFA) 44 00 times Medical mcg/actuati daily. Branch on inhaler Rinse mouth after each use. azelastine 2020-02 Yes [id number] 1{spray Use 1 [facility] 137 mcg 2-02 } [place] in ity of (0.1 %) 00:00: each [place] nasal spray 00 nostril 2 Med ical (two) Branch times daily. Use in each nostril as directed fluticasone 2020-02 Yes [id number] 2{puff} Inhale 2 [facility] propionate 2-02 Puffs 2 ity of (FLOVENT 00:00: (two) [place] HFA) 44 00 times Medical mcg/actuati daily. Branch on inhaler Rinse mouth after each use. azelastine 2020-02 Yes [id number] 1{spray Use 1 [facility] 137 mcg 2-02 } [place] in ity of (0.1 %) 00:00: each [place] nasal spray 00 nostril 2 Med ical (two) Branch times daily. Use in each nostril as directed fluticasone 2020-02 Yes [id number] 2{puff} Inhale 2 [facility] propionate 2-02 Puffs 2 ity of (FLOVENT 00:00: (two) [place] HFA) 44 00 times Medical mcg/actuati daily. Branch on inhaler Rinse mouth after each use. azelastine 2020-02 Yes [id number] 1{spray Use 1 [facility] 137 mcg 2-02 } [place] in ity of (0.1 %) 00:00: each [place] nasal spray 00 nostril 2 Med ical (two) Branch times daily. Use in each nostril as directed fluticasone 2020-02 Yes [id number] 2{puff} Inhale 2 [facility] propionate 2-02 Puffs 2 ity of (FLOVENT 00:00: (two) [place] HFA) 44 00 times Medical mcg/actuati daily. Branch on inhaler Rinse mouth after each use. azelastine 2020-02 Yes [id number] 1{spray Use 1 [facility] 137 mcg 2-02 } [place] in ity of (0.1 %) 00:00: each [place] nasal spray 00 nostril 2 Med ical (two) Branch times daily. Use in each nostril as directed fluticasone 2020-02 Yes [id number] 2{puff} Inhale 2 [facility] propionate 2-02 Puffs 2 ity of (FLOVENT 00:00: (two) [place] HFA) 44 00 times Medical mcg/actuati daily. Branch on inhaler Rinse mouth after each use. azelastine 2020-02 Yes [id number] 1{spray Use 1 [facility] 137 mcg 2-02 } [place] in ity of (0.1 %) 00:00: each [place] nasal spray 00 nostril 2 Med ical (two) Branch times daily. Use in each nostril as directed fluticasone 2020-02 Yes [id number] 2{puff} Inhale 2 [facility] propionate 2-02 Puffs 2 ity of (FLOVENT 00:00: (two) [place] HFA) 44 00 times Medical mcg/actuati daily. Branch on inhaler Rinse mouth after each use. azelastine 2020-02 Yes [id number] 1{spray Use 1 [facility] 137 mcg 2-02 } [place] in ity of (0.1 %) 00:00: each [place] nasal spray 00 nostril 2 Med ical (two) Branch times daily. Use in each nostril as directed fluticasone 2020-02 Yes [id number] 2{puff} Inhale 2 [facility] propionate 2-02 Puffs 2 ity of (FLOVENT 00:00: (two) [place] HFA) 44 00 times Medical mcg/actuati daily. Branch on inhaler Rinse mouth after each use. azelastine 2020-02 Yes [id number] 1{spray Use 1 [facility] 137 mcg 2-02 } [place] in ity of (0.1 %) 00:00: each [place] nasal spray 00 nostril 2 Med ical (two) Branch times daily. Use in each nostril as directed fluticasone 2020-02 Yes [id number] 2{puff} Inhale 2 [facility] propionate 2-02 Puffs 2 ity of (FLOVENT 00:00: (two) [place] HFA) 44 00 times Medical mcg/actuati daily. Branch on inhaler Rinse mouth after each use. azelastine 2020-02 Yes [id number] 1{spray Use 1 [facility] 137 mcg 2-02 } [place] in ity of (0.1 %) 00:00: each [place] nasal spray 00 nostril 2 Med ical (two) Branch times daily. Use in each nostril as directed fluticasone 2020-02 Yes [id number] 2{puff} Inhale 2 [facility] propionate 2-02 Puffs 2 ity of (FLOVENT 00:00: (two) [place] HFA) 44 00 times Medical mcg/actuati daily. Branch on inhaler Rinse mouth after each use. azelastine 2020-02 Yes [id number] 1{spray Use 1 [facility] 137 mcg 2-02 } [place] in ity of (0.1 %) 00:00: each [place] nasal spray 00 nostril 2 Med ical (two) Branch times daily. Use in each nostril as directed fluticasone 2020-02 Yes [id number] 2{puff} Inhale 2 [facility] propionate 2-02 Puffs 2 ity of (FLOVENT 00:00: (two) [place] HFA) 44 00 times Medical mcg/actuati daily. Branch on inhaler Rinse mouth after each use. azelastine 2020-02 Yes [id number] 1{spray Use 1 [facility] 137 mcg 2-02 } [place] in ity of (0.1 %) 00:00: each [place] nasal spray 00 nostril 2 Med ical (two) Branch times daily. Use in each nostril as directed fluticasone 2020-02 Yes [id number] 2{puff} Inhale 2 [facility] propionate 2-02 Puffs 2 ity of (FLOVENT 00:00: (two) [place] HFA) 44 00 times Medical mcg/actuati daily. Branch on inhaler Rinse mouth after each use. azelastine 2020-02 Yes [id number] 1{spray Use 1 [facility] 137 mcg 2-02 } [place] in ity of (0.1 %) 00:00: each [place] nasal spray 00 nostril 2 Med ical (two) Branch times daily. Use in each nostril as directed fluticasone 2020-02 Yes [id number] 2{puff} Inhale 2 [facility] propionate 2-02 Puffs 2 ity of (FLOVENT 00:00: (two) [place] HFA) 44 00 times Medical mcg/actuati daily. Branch on inhaler Rinse mouth after each use. azelastine 2020-02 Yes [id number] 1{spray Use 1 [facility] 137 mcg 2-02 } [place] in ity of (0.1 %) 00:00: each [place] nasal spray 00 nostril 2 Med ical (two) Branch times daily. Use in each nostril as directed fluticasone 2020-02 Yes [id number] 2{puff} Inhale 2 [facility] propionate 2-02 Puffs 2 ity of (FLOVENT 00:00: (two) [place] HFA) 44 00 times Medical mcg/actuati daily. Branch on inhaler Rinse mouth after each use. azelastine 2020-02 Yes [id number] 1{spray Use 1 [facility] 137 mcg 2-02 } [place] in ity of (0.1 %) 00:00: each [place] nasal spray 00 nostril 2 Med ical (two) Branch times daily. Use in each nostril as directed fluticasone 2020-02 Yes [id number] 2{puff} Inhale 2 [facility] propionate 2-02 Puffs 2 ity of (FLOVENT 00:00: (two) [place] HFA) 44 00 times Medical mcg/actuati daily. Branch on inhaler Rinse mouth after each use. azelastine 2020-02 Yes [id number] 1{spray Use 1 [facility] 137 mcg 2-02 } [place] in ity of (0.1 %) 00:00: each [place] nasal spray 00 nostril 2 Med ical (two) Branch times daily. Use in each nostril as directed fluticasone 2020-02 Yes [id number] 2{puff} Inhale 2 [facility] propionate 2-02 Puffs 2 ity of (FLOVENT 00:00: (two) [place] HFA) 44 00 times Medical mcg/actuati daily. Branch on inhaler Rinse mouth after each use. azelastine 2020-02 Yes [id number] 1{spray Use 1 [facility] 137 mcg 2-02 } [place] in ity of (0.1 %) 00:00: each [place] nasal spray 00 nostril 2 Med ical (two) Branch times daily. Use in each nostril as directed fluticasone 2020-02 Yes [id number] 2{puff} Inhale 2 [facility] propionate 2-02 Puffs 2 ity of (FLOVENT 00:00: (two) [place] HFA) 44 00 times Medical mcg/actuati daily. Branch on inhaler Rinse mouth after each use. azelastine 2020-02 Yes [id number] 1{spray Use 1 [facility] 137 mcg 2-02 } [place] in ity of (0.1 %) 00:00: each [place] nasal spray 00 nostril 2 Med ical (two) Branch times daily. Use in each nostril as directed fluticasone 2020-02 Yes [id number] 2{puff} Inhale 2 [facility] propionate 2-02 Puffs 2 ity of (FLOVENT 00:00: (two) [place] HFA) 44 00 times Medical mcg/actuati daily. Branch on inhaler Rinse mouth after each use. azelastine 2020-02 Yes [id number] 1{spray Use 1 [facility] 137 mcg 2-02 } [place] in ity of (0.1 %) 00:00: each [place] nasal spray 00 nostril 2 Med ical (two) Branch times daily. Use in each nostril as directed fluticasone 2020-02 Yes [id number] 2{puff} Inhale 2 [facility] propionate 2-02 Puffs 2 ity of (FLOVENT 00:00: (two) [place] HFA) 44 00 times Medical mcg/actuati daily. Branch on inhaler Rinse mouth after each use. azelastine 2020-02 Yes [id number] 1{spray Use 1 [facility] 137 mcg 2-02 } [place] in ity of (0.1 %) 00:00: each [place] nasal spray 00 nostril 2 Med ical (two) Branch times daily. Use in each nostril as directed fluticasone 2020-02 Yes [id number] 2{puff} Inhale 2 [facility] propionate 2-02 Puffs 2 ity of (FLOVENT 00:00: (two) [place] HFA) 44 00 times Medical mcg/actuati daily. Branch on inhaler Rinse mouth after each use. azelastine 2020-02 Yes [id number] 1{spray Use 1 [facility] 137 mcg 2-02 } [place] in ity of (0.1 %) 00:00: each [place] nasal spray 00 nostril 2 Med ical (two) Branch times daily. Use in each nostril as directed fluticasone 2020-02 Yes [id number] 2{puff} Inhale 2 [facility] propionate 2-02 Puffs 2 ity of (FLOVENT 00:00: (two) [place] HFA) 44 00 times Medical mcg/actuati daily. Branch on inhaler Rinse mouth after each use. azelastine 2020-02 Yes [id number] 1{spray Use 1 [facility] 137 mcg 2-02 } [place] in ity of (0.1 %) 00:00: each [place] nasal spray 00 nostril 2 Med ical (two) Branch times daily. Use in each nostril as directed fluticasone 2020-02 Yes [id number] 2{puff} Inhale 2 [facility] propionate 2-02 Puffs 2 ity of (FLOVENT 00:00: (two) [place] HFA) 44 00 times Medical mcg/actuati daily. Branch on inhaler Rinse mouth after each use. azelastine 2020-02 Yes [id number] 1{spray Use 1 [facility] 137 mcg 2-02 } [place] in ity of (0.1 %) 00:00: each [place] nasal spray 00 nostril 2 Med ical (two) Branch times daily. Use in each nostril as directed fluticasone 2020-02 Yes [id number] 2{puff} Inhale 2 [facility] propionate 2-02 Puffs 2 ity of (FLOVENT 00:00: (two) [place] HFA) 44 00 times Medical mcg/actuati daily. Branch on inhaler Rinse mouth after each use. azelastine 2020-02 Yes [id number] 1{spray Use 1 [facility] 137 mcg 2-02 } [place] in ity of (0.1 %) 00:00: each [place] nasal spray 00 nostril 2 Med ical (two) Branch times daily. Use in each nostril as directed fluticasone 2020-02 Yes [id number] 2{puff} Inhale 2 [facility] propionate 2-02 Puffs 2 ity of (FLOVENT 00:00: (two) [place] HFA) 44 00 times Medical mcg/actuati daily. Branch on inhaler Rinse mouth after each use. azelastine 2020-02 Yes [id number] 1{spray Use 1 [facility] 137 mcg 2-02 } [place] in ity of (0.1 %) 00:00: each [place] nasal spray 00 nostril 2 Med ical (two) Branch times daily. Use in each nostril as directed fluticasone 2020-02 Yes [id number] 2{puff} Inhale 2 [facility] propionate 2-02 Puffs 2 ity of (FLOVENT 00:00: (two) [place] HFA) 44 00 times Medical mcg/actuati daily. Branch on inhaler Rinse mouth after each use. azelastine 2020-02 Yes [id number] 1{spray Use 1 [facility] 137 mcg 2-02 } [place] in ity of (0.1 %) 00:00: each [place] nasal spray 00 nostril 2 Med ical (two) Branch times daily. Use in each nostril as directed fluticasone 2020-02 Yes [id number] 2{puff} Inhale 2 [facility] propionate 2-02 Puffs 2 ity of (FLOVENT 00:00: (two) [place] HFA) 44 00 times Medical mcg/actuati daily. Branch on inhaler Rinse mouth after each use. azelastine 2020-02 Yes [id number] 1{spray Use 1 [facility] 137 mcg 2-02 } [place] in ity of (0.1 %) 00:00: each [place] nasal spray 00 nostril 2 Med ical (two) Branch times daily. Use in each nostril as directed fluticasone 2020-02 Yes [id number] 2{puff} Inhale 2 [facility] propionate 2-02 Puffs 2 ity of (FLOVENT 00:00: (two) [place] HFA) 44 00 times Medical mcg/actuati daily. Branch on inhaler Rinse mouth after each use. azelastine 2020-02 Yes [id number] 1{spray Use 1 [facility] 137 mcg 2-02 } [place] in ity of (0.1 %) 00:00: each [place] nasal spray 00 nostril 2 Med ical (two) Branch times daily. Use in each nostril as directed fluticasone 2020-02 Yes [id number] 2{puff} Inhale 2 [facility] propionate 2-02 Puffs 2 ity of (FLOVENT 00:00: (two) [place] HFA) 44 00 times Medical mcg/actuati daily. Branch on inhaler Rinse mouth after each use. azelastine 2020-02 Yes [id number] 1{spray Use 1 [facility] 137 mcg 2-02 } [place] in ity of (0.1 %) 00:00: each [place] nasal spray 00 nostril 2 Med ical (two) Branch times daily. Use in each nostril as directed fluticasone 2020-02 Yes [id number] 2{puff} Inhale 2 [facility] propionate 2-02 Puffs 2 ity of (FLOVENT 00:00: (two) [place] HFA) 44 00 times Medical mcg/actuati daily. Branch on inhaler Rinse mouth after each use. azelastine 2020-02 Yes [id number] 1{spray Use 1 [facility] 137 mcg 2-02 } [place] in ity of (0.1 %) 00:00: each [place] nasal spray 00 nostril 2 Med ical (two) Branch times daily. Use in each nostril as directed fluticasone 2020-02 Yes [id number] 2{puff} Inhale 2 [facility] propionate 2-02 Puffs 2 ity of (FLOVENT 00:00: (two) [place] HFA) 44 00 times Medical mcg/actuati daily. Branch on inhaler Rinse mouth after each use. azelastine 2020-02 Yes [id number] 1{spray Use 1 [facility] 137 mcg 2-02 } [place] in ity of (0.1 %) 00:00: each [place] nasal spray 00 nostril 2 Med ical (two) Branch times daily. Use in each nostril as directed fluticasone 2020-02 Yes [id number] 2{puff} Inhale 2 [facility] propionate 2-02 Puffs 2 ity of (FLOVENT 00:00: (two) [place] HFA) 44 00 times Medical mcg/actuati daily. Branch on inhaler Rinse mouth after each use. azelastine 2020-02 Yes [id number] 1{spray Use 1 [facility] 137 mcg 2-02 } [place] in ity of (0.1 %) 00:00: each [place] nasal spray 00 nostril 2 Med ical (two) Branch times daily. Use in each nostril as directed fluticasone 2020-02 Yes [id number] 2{puff} Inhale 2 [facility] propionate 2-02 Puffs [...] [facility] (DITROPAN 1-10 Tablet by Shanda SHEPPARD) 10 MG 00:00: mouth of [place] tablet 00 daily. Medicin e oxybutynin 2020-02 Yes 10mg Take 1 [facility] (DITROPAN 1-10 Tablet by [employer]) 10 MG 00:00: mouth of [place] tablet 00 daily. Medicin e oxybutynin 2020-02- No 10mg Take 1 [facility] (DITROPAN 1-10 -19 Tablet by [employer] [employer] [facility]) 10 MG 00:00: 00:00 mouth of [place] tablet 00 :00 daily. Medicin e albuterol Yes [id number] 2{puff} Inhale 2 [facility] (PROAIR 9-03 Puffs ity of HFA) 90 00:00: every 6 [place] mcg/actuati 00 (six) Medical on inhaler hours as Branc h needed for Wheezing or Shortness of Breath. albuterol Yes [id number] 2{puff} Inhale 2 [facility] (PROAIR 9-03 Puffs ity of HFA) 90 00:00: every 6 [place] mcg/actuati 00 (six) Medical on inhaler hours as Branc h needed for Wheezing or Shortness of Breath. albuterol Yes [id number] 2{puff} Inhale 2 [facility] (PROAIR 9-03 Puffs ity of HFA) 90 00:00: every 6 [place] mcg/actuati 00 (six) Medical on inhaler hours as Branc h needed for Wheezing or Shortness of Breath. albuterol Yes [id number] 2{puff} Inhale 2 [facility] (PROAIR 9-03 Puffs ity of HFA) 90 00:00: every 6 [place] mcg/actuati 00 (six) Medical on inhaler hours as Branc h needed for Wheezing or Shortness of Breath. albuterol Yes [id number] 2{puff} Inhale 2 [facility] (PROAIR 9-03 Puffs ity of HFA) 90 00:00: every 6 [place] mcg/actuati 00 (six) Medical on inhaler hours as Branc h needed for Wheezing or Shortness of Breath. albuterol Yes [id number] 2{puff} Inhale 2 [facility] (PROAIR 9-03 Puffs ity of HFA) 90 00:00: every 6 [place] mcg/actuati 00 (six) Medical on inhaler hours as Branc h needed for Wheezing or Shortness of Breath. albuterol Yes [id number] 2{puff} Inhale 2 [facility] (PROAIR 9-03 Puffs ity of HFA) 90 00:00: every 6 [place] mcg/actuati 00 (six) Medical on inhaler hours as Branc h needed for Wheezing or Shortness of Breath. albuterol 0 Yes [id number] 2{puff} Inhale 2 [facility] (PROAIR 9-03 Puffs ity of HFA) 90 00:00: every 6 [place] mcg/actuati 00 (six) Medical on inhaler hours as Branc h needed for Wheezing or Shortness of Breath. albuterol Yes [id number] 2{puff} Inhale 2 [facility] (PROAIR 9-03 Puffs ity of HFA) 90 00:00: every 6 [place] mcg/actuati 00 (six) Medical on inhaler hours as Branc h needed for Wheezing or Shortness of Breath. albuterol Yes [id number] 2{puff} Inhale 2 [facility] (PROAIR 9-03 Puffs ity of HFA) 90 00:00: every 6 [place] mcg/actuati 00 (six) Medical on inhaler hours as Branc h needed for Wheezing or Shortness of Breath. albuterol 0 Yes [id number] 2{puff} Inhale 2 [facility] (PROAIR 9-03 Puffs ity of HFA) 90 00:00: every 6 [place] mcg/actuati 00 (six) Medical on inhaler hours as Branc h needed for Wheezing or Shortness of Breath. albuterol Yes [id number] 2{puff} Inhale 2 [facility] (PROAIR 9-03 Puffs ity of HFA) 90 00:00: every 6 [place] mcg/actuati 00 (six) Medical on inhaler hours as Branc h needed for Wheezing or Shortness of Breath. albuterol 0 Yes [id number] 2{puff} Inhale 2 [facility] (PROAIR 9-03 Puffs ity of HFA) 90 00:00: every 6 [place] mcg/actuati 00 (six) Medical on inhaler hours as Branc h needed for Wheezing or Shortness of Breath. albuterol Yes [id number] 2{puff} Inhale 2 [facility] (PROAIR 9-03 Puffs ity of HFA) 90 00:00: every 6 [place] mcg/actuati 00 (six) Medical on inhaler hours as Branc h needed for Wheezing or Shortness of Breath. albuterol Yes [id number] 2{puff} Inhale 2 [facility] (PROAIR 9-03 Puffs ity of HFA) 90 00:00: every 6 [place] mcg/actuati 00 (six) Medical on inhaler hours as Branc h needed for Wheezing or Shortness of Breath. albuterol Yes [id number] 2{puff} Inhale 2 [facility] (PROAIR 9-03 Puffs ity of HFA) 90 00:00: every 6 [place] mcg/actuati 00 (six) Medical on inhaler hours as Branc h needed for Wheezing or Shortness of Breath. albuterol Yes [id number] 2{puff} Inhale 2 [facility] (PROAIR 9-03 Puffs ity of HFA) 90 00:00: every 6 [place] mcg/actuati 00 (six) Medical on inhaler hours as Branc h needed for Wheezing or Shortness of Breath. albuterol Yes [id number] 2{puff} Inhale 2 [facility] (PROAIR 9-03 Puffs ity of HFA) 90 00:00: every 6 [place] mcg/actuati 00 (six) Medical on inhaler hours as Branc h needed for Wheezing or Shortness of Breath. albuterol Yes [id number] 2{puff} Inhale 2 [facility] (PROAIR 9-03 Puffs ity of HFA) 90 00:00: every 6 [place] mcg/actuati 00 (six) Medical on inhaler hours as Branc h needed for Wheezing or Shortness of Breath. albuterol Yes [id number] 2{puff} Inhale 2 [facility] (PROAIR 9-03 Puffs ity of HFA) 90 00:00: every 6 [place] mcg/actuati 00 (six) Medical on inhaler hours as Branc h needed for Wheezing or Shortness of Breath. albuterol Yes [id number] 2{puff} Inhale 2 [facility] (PROAIR 9-03 Puffs ity of HFA) 90 00:00: every 6 [place] mcg/actuati 00 (six) Medical on inhaler hours as Branc h needed for Wheezing or Shortness of Breath. albuterol Yes [id number] 2{puff} Inhale 2 [facility] (PROAIR 9-03 Puffs ity of HFA) 90 00:00: every 6 [place] mcg/actuati 00 (six) Medical on inhaler hours as Branc h needed for Wheezing or Shortness of Breath. albuterol Yes [id number] 2{puff} Inhale 2 [facility] (PROAIR 9-03 Puffs ity of HFA) 90 00:00: every 6 [place] mcg/actuati 00 (six) Medical on inhaler hours as Branc h needed for Wheezing or Shortness of Breath. albuterol Yes [id number] 2{puff} Inhale 2 [facility] (PROAIR 9-03 Puffs ity of HFA) 90 00:00: every 6 [place] mcg/actuati 00 (six) Medical on inhaler hours as Branc h needed for Wheezing or Shortness of Breath. albuterol Yes [id number] 2{puff} Inhale 2 [facility] (PROAIR 9-03 Puffs ity of HFA) 90 00:00: every 6 [place] mcg/actuati 00 (six) Medical on inhaler hours as Branc h needed for Wheezing or Shortness of Breath. albuterol Yes [id number] 2{puff} Inhale 2 [facility] (PROAIR 9-03 Puffs ity of HFA) 90 00:00: every 6 [place] mcg/actuati 00 (six) Medical on inhaler hours as Branc h needed for Wheezing or Shortness of Breath. albuterol Yes [id number] 2{puff} Inhale 2 [facility] (PROAIR 9-03 Puffs ity of HFA) 90 00:00: every 6 [place] mcg/actuati 00 (six) Medical on inhaler hours as Branc h needed for Wheezing or Shortness of Breath. albuterol Yes [id number] 2{puff} Inhale 2 [facility] (PROAIR 9-03 Puffs ity of HFA) 90 00:00: every 6 [place] mcg/actuati 00 (six) Medical on inhaler hours as Branc h needed for Wheezing or Shortness of Breath. albuterol Yes [id number] 2{puff} Inhale 2 [facility] (PROAIR 9-03 Puffs ity of HFA) 90 00:00: every 6 [place] mcg/actuati 00 (six) Medical on inhaler hours as Branc h needed for Wheezing or Shortness of Breath. albuterol Yes [id number] 2{puff} Inhale 2 [facility] (PROAIR 9-03 Puffs ity of HFA) 90 00:00: every 6 [place] mcg/actuati 00 (six) Medical on inhaler hours as Branc h needed for Wheezing or Shortness of Breath. albuterol Yes [id number] 2{puff} Inhale 2 [facility] (PROAIR 9-03 Puffs ity of HFA) 90 00:00: every 6 [place] mcg/actuati 00 (six) Medical on inhaler hours as Branc h needed for Wheezing or Shortness of Breath. amLODIPine 2021- No [id number] 2.5mg Take 1 [facility] 2.5 mg 07-20 tablet by ity of tablet 00:00: 00:00 mouth [place] 00 :00 daily. Medical Branch hydrochloro 2020- No 25mg Take 25 mg [facility] thiazide 3-22 03-22 by mouth Colleg [facility] (HYDRODIURI 16:58: 00:00 daily. of L) 25 MG 25 :00 Medicin tablet e Magnesium Yes Take by [facility] 100 MG CAPS 3-22 mouth. Colleg e 15:58: of 46 Medicin e Melatonin Yes Take by [facility] 10 MG TABS 3-22 mouth. College 15:58: of 46 Medicin e hydrochloro Yes [...] Medicin tablet e Potassium Yes Take 2 [facility] Citrate 3-22 tablets PO Colleg e (UROCIT-K 00:00: TID of 10) 10 MEQ 00 Medicin (1080 MG) e TBCR hydrochloro 0 Yes 25mg Take 1 [facility] thiazide 3-22 Tablet by [facility] (HYDRODIURI 00:00: mouth of L) 25 MG 00 daily. Medicin tablet e Potassium Yes Take 2 [facility] Citrate 3-22 tablets PO Colleg e (UROCIT-K 00:00: TID of 10) 10 MEQ 00 Medicin (1080 MG) e TBCR oxybutynin 0 Yes 10mg Take 1 [facility] (DITROPAN 3-22 Tablet by Shanda weber XL) 10 MG 00:00: mouth of CR tablet 00 daily. Medicin e hydrochloro 0 2021- No 25mg Take 1 [facility] thiazide 3-22 -19 Tablet by Shanda weber (HYDRODIURI 00:00: 00:00 mouth of L) 25 MG 00 :00 daily. Medicin tablet e Potassium 2020-0 2021- No Take 2 [facility] Citrate 3-22 09-19 tablets PO Shanda ge (UROCIT-K 00:00: 00:00 TID of 10) 10 MEQ 00 :00 Medicin (1080 MG) e TBCR oxybutynin 2020-0 2020- No 10mg Take 1 [facility] (DITROPAN 3-22 11-10 Tablet by Kristine spencer XL) 10 MG 00:00: 00:00 mouth of CR tablet 00 :00 daily. Medicin e hydrochloro 2019- Yes 25mg Take 25 mg [facility] thiazide 1-23 by mouth College (HYDRODIURI 17:00: daily. of L) 25 MG 06 Medicin tablet e Magnesium 2019- Yes Take by [facility] 100 MG CAPS 1-23 mouth. Colleg e 17:00: of 06 Medicin e Melatonin 2019- Yes Take by [facility] 10 MG TABS 1-23 mouth. College 17:00: of 06 Medicin e Potassium 2019-02 Yes Take 2 [facility] Citrate 1-23 tablets PO Colleg e (UROCIT-K 00:00: TID of 10) 10 MEQ 00 Medicin (1080 MG) e TBCR Potassium 2019-02- No Take 2 [facility] Citrate 1-23 03-22 tablets PO Colle ge (UROCIT-K 00:00: 00:00 TID of 10) 10 MEQ 00 :00 Medicin (1080 MG) e TBCR levothyroxi 2019-02 Yes 25ug Take 25 [facility] ne 1-02 mcg by [place] (SYNTHROID) 00:00: mouth. of 25 MCG 00 Medicin tablet e levothyroxi 2019-02 Yes 25ug Take 25 [facility] ne 1-02 mcg by [place] (SYNTHROID) 00:00: mouth. of 25 MCG 00 Medicin tablet e levothyroxi 2019-02- No 25ug Take 25 [facility] 1-02 11-10 mcg by [place] (SYNTHROID) 00:00: 00:00 mouth. of 25 MCG 00 :00 Medicin tablet e aspirin 81 2019-02 Yes [id number] 81mg Take 1 [facility] mg chewable 0-01 [id number] tablet by i ty of tablet 00:00: mouth [place] 00 daily. Medical Branch aspirin 81 2019-02 Yes [id number] 81mg Take 1 [facility] mg chewable 0-01 [id number] tablet by i ty of tablet 00:00: mouth [place] 00 daily. Medical Branch aspirin 81 2019-02 Yes [id number] 81mg Take 1 [facility] mg chewable 0-01 [id number] tablet by i ty of tablet 00:00: mouth [place] 00 daily. Medical Branch aspirin 81 2019-02 Yes [id number] 81mg Take 1 [facility] mg chewable 0-01 [id number] tablet by i ty of tablet 00:00: mouth [place] 00 daily. Medical [facility] aspirin 81 2019-02 Yes [id number] 81mg Take 1 [facility] mg chewable 0-01 [id number] tablet by i ty of tablet 00:00: mouth [place] 00 daily. Medical Branch aspirin 81 2019-02 Yes [id number] 81mg Take 1 [facility] mg chewable 0-01 [id number] tablet by i ty of tablet 00:00: mouth [place] 00 daily. Medical Branch aspirin 81 2019-02 Yes [id number] 81mg Take 1 [facility] mg chewable 0-01 [id number] tablet by i ty of tablet 00:00: mouth [place] 00 daily. Medical Branch aspirin 81 2020- Yes [id number] 81mg Take 1 [facility] mg chewable 0-01 [id number] tablet by i ty of tablet 00:00: mouth [place] 00 daily. Medical Branch aspirin 81 2020- Yes [id number] 81mg Take 1 [facility] mg chewable 0-01 [id number] tablet by i ty of tablet 00:00: mouth [place] 00 daily. Medical Branch aspirin 81 2020- Yes [id number] 81mg Take 1 [facility] mg chewable 0-01 [id number] tablet by i ty of tablet 00:00: mouth [place] 00 daily. Medical Branch aspirin 81 2020- Yes [id number] 81mg Take 1 [facility] mg chewable 0-01 [id number] tablet by i ty of tablet 00:00: mouth [place] 00 daily. Medical Branch aspirin 81 2020- Yes [id number] 81mg Take 1 [facility] mg chewable 0-01 [id number] tablet by i ty of tablet 00:00: mouth [place] 00 daily. Medical Branch aspirin 81 2020- Yes [id number] 81mg Take 1 [facility] mg chewable 0-01 [id number] tablet by i ty of tablet 00:00: mouth [place] 00 daily. Medical Branch aspirin 81 2020- Yes [id number] 81mg Take 1 [facility] mg chewable 0-01 [id number] tablet by i ty of tablet 00:00: mouth [place] 00 daily. Medical Branch aspirin 81 2020- Yes [id number] 81mg Take 1 [facility] mg chewable 0-01 [id number] tablet by i ty of tablet 00:00: mouth [place] 00 daily. Medical Branch aspirin 81 2020- Yes [id number] 81mg Take 1 [facility] mg chewable 0-01 [id number] tablet by i ty of tablet 00:00: mouth [place] 00 daily. Medical Branch aspirin 81 2020- Yes [id number] 81mg Take 1 [facility] mg chewable 0-01 [id number] tablet by i ty of tablet 00:00: mouth [place] 00 daily. Medical Branch aspirin 81 2020- Yes [id number] 81mg Take 1 [facility] mg chewable 0-01 [id number] tablet by i ty of tablet 00:00: mouth [place] 00 daily. Medical Branch aspirin 81 2020- Yes [id number] 81mg Take 1 [facility] mg chewable 0-01 [id number] tablet by i ty of tablet 00:00: mouth [place] 00 daily. Medical Branch aspirin 81 2020- Yes [id number] 81mg Take 1 [facility] mg chewable 0-01 [id number] tablet by i ty of tablet 00:00: mouth [place] 00 daily. Medical Branch aspirin 81 2020- Yes [id number] 81mg Take 1 [facility] mg chewable 0-01 [id number] tablet by i ty of tablet 00:00: mouth [place] 00 daily. Medical Branch aspirin 81 2020- Yes [id number] 81mg Take 1 [facility] mg chewable 0-01 [id number] tablet by i ty of tablet 00:00: mouth [place] 00 daily. Medical Branch aspirin 81 2020- Yes [id number] 81mg Take 1 [facility] mg chewable 0-01 [id number] tablet by i ty of tablet 00:00: mouth [place] 00 daily. Medical Branch aspirin 81 2020- Yes [id number] 81mg Take 1 [facility] mg chewable 0-01 [id number] tablet by i ty of tablet 00:00: mouth [place] 00 daily. Medical Branch aspirin 81 2020- Yes [id number] 81mg Take 1 [facility] mg chewable 0-01 [id number] tablet by i ty of tablet 00:00: mouth [place] 00 daily. Medical Branch aspirin 81 2020- Yes [id number] 81mg Take 1 [facility] mg chewable 0-01 [id number] tablet by i ty of tablet 00:00: mouth [place] 00 daily. Medical Branch aspirin 81 2020- Yes [id number] 81mg Take 1 [facility] mg chewable 0-01 [id number] tablet by i ty of tablet 00:00: mouth [place] 00 daily. Medical Branch aspirin 81 2020- Yes [id number] 81mg Take 1 [facility] mg chewable 0-01 [id number] tablet by i ty of tablet 00:00: mouth [place] 00 daily. Medical Branch aspirin 81 2020- Yes [id number] 81mg Take 1 [facility] mg chewable 0-01 [id number] tablet by i ty of tablet 00:00: mouth [place] 00 daily. Medical Branch aspirin 81 2020- Yes [id number] 81mg Take 1 [facility] mg chewable 0-01 [id number] tablet by i ty of tablet 00:00: mouth [place] 00 daily. Medical Branch aspirin 81 2020- Yes [id number] 81mg Take 1 [facility] mg chewable 0-01 [id number] tablet by i ty of tablet 00:00: mouth [place] 00 daily. Medical Branch atorvastati 2019-0 Yes [facility] n (LIPITOR) 6-13 College 40 MG [...] tablet 00 Medicin e atorvastati 2020-0 Yes [facility] n (LIPITOR) 6-13 College 40 MG 00:00: of tablet 00 Medicin e atorvastati 2020-0 Yes [facility] n (LIPITOR) 6-13 College 40 MG 00:00: of tablet 00 Medicin e amlodipine 2020-0 Yes [facility] (NORVASC) 5 6-02 College MG tablet 00:00: of 00 Medicin e amlodipine 2020-0 Yes [facility] (NORVASC) 5 6-02 College MG tablet 00:00: of 00 Medicin e amlodipine 2020-0 Yes [facility] (NORVASC) 5 6-02 College MG tablet 00:00: of 00 Medicin e amlodipine 2020-0 Yes [facility] (NORVASC) 5 6-02 College MG tablet 00:00: of 00 Medicin e amlodipine 2020-0 Yes [facility] (NORVASC) 5 6-02 College MG tablet 00:00: of 00 Medicin e amlodipine 2020-0 2022- No [facility] (NORVASC) 5 6-02 09-19 College MG tablet [...] 25 mg every day losartan 2020-0 Yes [facility] (COZAAR) 5-30 College 100 MG 00:00: [...] for premedicat ion hydrALAZINE 2020-0 Yes 50mg Q.[id number] Take [address] [facility] (APRESOLINE 2-17 [id number] by mouth [facility] ) 50 MG 00:00: 3D (three) Medical tablet 00 times Center daily . hydroCHLORO 2020-0 Yes 25mg QD Take [address] [facility] thiazide 2-17 by mouth [facility] (HYDRODIURI 00:00: daily. Medi angelica L) 25 MG 00 Center tablet hydrALAZINE 2020-0 Yes 50mg Q.[id number] Take [address] [facility] (APRESOLINE 2-17 [id number] by mouth [facility] ) 50 MG 00:00: 3D (three) Medical tablet 00 times Center daily . hydroCHLORO 2020-0 Yes 25mg QD Take [address] [facility] thiazide 2-17 by mouth [facility] (HYDRODIURI 00:00: daily. Medi angelica L) 25 MG 00 Center tablet hydrALAZINE 2020-0 Yes 50mg Q.[id number] Take [address] [facility] (APRESOLINE 2-17 [id number] by mouth 3 [facility] ) 50 MG 00:00: 3D (three) Medical tablet 00 times Center daily . hydroCHLORO 2020-0 Yes 25mg QD Take [address] [facility] thiazide 2-17 by mouth [facility] (HYDRODIURI 00:00: daily. Medi angelica L) 25 MG 00 Center tablet hydrALAZINE 2020-0 Yes 50mg Q.[id number] Take [address] [facility] (APRESOLINE 2-17 [id number] by mouth 3 [facility] ) 50 MG 00:00: 3D (three) Medical tablet 00 times Center daily . hydroCHLORO 2020-0 Yes 25mg QD Take [address] [facility] thiazide 2-17 by mouth [facility] (HYDRODIURI 00:00: daily. Medi angelica L) 25 MG 00 Center tablet hydrALAZINE 2020-0 Yes 50mg Q.[id number] Take [address] [facility] (APRESOLINE 2-17 [id number] by mouth 3 [facility] ) 50 MG 00:00: 3D (three) Medical tablet 00 times Center daily . hydroCHLORO 2020-0 Yes 25mg QD Take [address] [facility] thiazide 2-17 by mouth [facility] (HYDRODIURI 00:00: daily. Medi angelica L) 25 MG 00 Center tablet hydrALAZINE 2020-0 Yes 50mg Q.[id number] Take [address] [facility] (APRESOLINE 2-17 [id number] by mouth 3 [facility] ) 50 MG 00:00: 3D (three) Medical tablet 00 times Center daily . hydroCHLORO 2020-0 Yes 25mg QD Take [address] [facility] thiazide 2-17 by mouth [facility] (HYDRODIURI 00:00: daily. Medi angelica L) 25 MG 00 [place] tablet aspirin 81 2019-0 Yes 81mg QD Take [address] MG chewable 6-21 by mouth Luke [facility] tablet 00:00: daily. [address] aspirin EC 2019-0 Yes 81mg Take [...] by mouth Luke [facility] tablet 00:00: daily. [address] aspirin 81 2019-0 Yes 81mg QD Take [address] MG chewable 6-21 by mouth Luke s tablet 00:00: daily. [address] aspirin 81 2019-0 Yes 81mg QD Take [address] MG chewable 6-21 by mouth Luke s tablet 00:00: daily. [address] aspirin 81 2019-0 Yes 81mg QD Take [address] MG chewable 6-21 by mouth Luke [facility] tablet 00:00: daily. [address] aspirin 81 2019-0 Yes 81mg QD Take [address] MG chewable 6-21 by mouth Luke [facility] tablet 00:00: daily. [address] atorvastati 2018-1 Yes 40mg QD Take [address] [facility] n (LIPITOR) 1-30 by mouth Luke s 40 MG 00:00: daily. Medical tablet 00 [place] amLODIPine 2017-02 Yes 2.5mg QD Take 2.[address] (NORVASC) 5 1-30 mg by [facility] MG tablet 00:00: mouth Medical 00 daily . [place] atorvastati 2017-02 Yes 40mg QD Take [address] [facility] n (LIPITOR) 1-30 by mouth Luke [facility] 40 MG 00:00: daily. Medical tablet 00 [place] amLODIPine 2017-02 Yes 2.5mg QD Take 2.[address] (NORVASC) 5 1-30 mg by [facility] MG tablet 00:00: mouth Medical 00 daily . [place] atorvastati 2017-02 Yes 40mg QD Take [address] [facility] n (LIPITOR) 1-30 by mouth Luke [facility] 40 MG 00:00: daily. Medical tablet 00 [place] amLODIPine 2017-02 Yes 2.5mg QD Take 2.[address] (NORVASC) 5 1-30 mg by [facility] MG tablet 00:00: mouth Medical 00 daily . [place] atorvastati 2017-02 Yes 40mg QD Take [address] [facility] n (LIPITOR) 1-30 by mouth [facility] 40 MG 00:00: daily. Medical tablet 00 [place] amLODIPine 2017-02 Yes 2.5mg QD Take 2.[address] (NORVASC) 5 1-30 mg by [facility] MG tablet 00:00: mouth Medical 00 daily . [place] atorvastati 2017-02 Yes 40mg QD Take [address] [facility] n (LIPITOR) 1-30 by mouth [facility] 40 MG 00:00: daily. Medical tablet 00 [place] amLODIPine 2017-02 Yes 2.5mg QD Take 2.[address] (NORVASC) 5 1-30 mg by [facility] MG tablet 00:00: mouth Medical 00 daily . [place] atorvastati 2017-02 Yes 40mg QD Take [address] [facility] n (LIPITOR) 1-30 by mouth Luke [facility] 40 MG 00:00: daily. Medical tablet 00 [place] amLODIPine 2017-02 Yes 2.5mg QD Take 2.5 [...] Completed Unive rsity of MODERNA 0.25ML 00:00:00 [facility] BOOSTER VACCINE Branch SARS-COV-2 COVID-19 2021-01-15 Completed [...] Completed Unive rsity of MODERNA 0.25ML 00:00:00 [facility] angelica BOOSTER VACCINE Branch SARS-COV-2 COVID-19 2021-01-15 Completed Unive rsity of MODERNA 0.25ML 00:00:00 [facility] angelica BOOSTER VACCINE Branch SARS-COV-2 COVID-19 2021-01-15 Completed Unive rsity of MODERNA 0.25ML 00:00:00 [facility] angelica BOOSTER VACCINE Branch Influenza High Dose 2019-11-08 Completed Unive rsity of Quad 00:00:00 [facility] Influenza High Dose 2019-11-08 Completed Unive rsity of [place] 00:00:00 [facility] Influenza High Dose 2019-11-08 Completed Unive rsity of [place] 00:00:00 [facility] Branch Influenza High Dose 2019-11-08 Completed Unive rsity of [place] 00:00:00 [facility] Influenza High Dose 2019-11-08 Completed Unive rsity of [place] 00:00:00 [facility] Influenza High Dose 2019-11-08 Completed Unive rsity of [place] 00:00:00 [facility] Branch Influenza High Dose 2019-11-08 Completed Unive rsity of [place] 00:00:00 [facility] Influenza High Dose 2019-11-08 Completed Unive rsity of [place] 00:00:00 [facility] Influenza High Dose 2019-11-08 Completed Unive rsity of [place] 00:00:00 [facility] Influenza High Dose 2019-11-08 Completed Unive rsity of [place] 00:00:00 [facility] Influenza High Dose 2019-11-08 Completed Unive rsity of [place] 00:00:00 [facility] Influenza High Dose 2019-11-08 Completed Unive rsity of [place] 00:00:00 [facility] Influenza High Dose 2019-11-08 Completed Unive rsity of [place] 00:00:00 [facility] Influenza High Dose 2019-11-08 Completed Unive rsity of [place] 00:00:00 [facility] Influenza High Dose 2019-11-08 Completed Unive rsity of [place] 00:00:00 [facility] Influenza High Dose 2019-11-08 Completed Unive rsity of [place] 00:00:00 [facility] Influenza High Dose 2019-11-08 Completed Unive rsity of [place] 00:00:00 [facility] Influenza High Dose 2019-11-08 Completed Unive rsity of [place] 00:00:00 [facility] Influenza High Dose 2019-11-08 Completed Unive rsity of [place] 00:00:00 [facility] Influenza High Dose 2019-11-08 Completed Unive rsity of 00:00:00 [facility] Influenza High Dose 2019-11-08 Completed Unive rsity of [place] 00:00:00 [facility] Influenza High Dose 2019-11-08 Completed Unive rsity of 00:00:00 [facility] Influenza High Dose 2019-11-08 Completed Unive rsity of [facility] 00:00:00 [facility] Influenza High Dose 2019-11-08 Completed Unive rsity of 00:00:00 [facility] Influenza High Dose 2019-11-08 Completed Unive rsity of [facility] 00:00:00 [facility] Influenza High Dose 2019-11-08 Completed Unive rsity of 00:00:00 [facility] Influenza High Dose 2019-11-08 Completed Unive rsity of [place] 00:00:00 [facility] Influenza High Dose 2019-11-08 Completed Unive rsity of 00:00:00 [facility] Influenza High Dose 2019-11-08 Completed Unive rsity of [facility] 00:00:00 [facility] Influenza High Dose 2019-11-08 Completed Unive rsity of 00:00:00 [facility] Influenza High Dose 2019-11-08 Completed Unive rsity of [place] 00:00:00 [facility] Influenza High Dose 2019-11-08 Completed Unive rsity of 00:00:00 [facility] Influenza High Dose 2019-11-08 Completed Unive rsity of [facility] 00:00:00 [facility] Influenza High Dose 2019-11-08 Completed Unive rsity of 00:00:00 [facility] Influenza High Dose 2019-11-08 Completed Unive rsity of [facility] 00:00:00 [facility] Influenza High Dose 2019-11-08 Completed Unive rsity of 00:00:00 [facility] Influenza High Dose 2019-11-08 Completed Unive rsity of [facility] 00:00:00 [facility] Influenza High Dose 2019-11-08 Completed Unive rsity of 00:00:00 [facility] Influenza High Dose 2019-11-08 Completed Unive rsity of [facility] 00:00:00 [facility] Influenza High Dose 2019-11-08 Completed Unive rsity of 00:00:00 [facility] Influenza High Dose 2019-11-08 Completed Unive rsity of [facility] 00:00:00 [facility] Branch Influenza High Dose 2019-11-08 Completed Unive rsity of 00:00:00 [facility] Influenza High Dose 2019-11-08 Completed Unive rsity of [facility] 00:00:00 [facility] Influenza High Dose 2019-11-08 Completed Unive rsity of 00:00:00 [facility] Influenza Hd 2019-11-08 Completed [facility] Colle ge 00:00:00 of Medicine Influenza Hd 2019-11-08 Completed [facility] Colle ge 00:00:00 of Medicine Influenza High Dose 2019-02-13 Completed Unive rsity of 00:00:00 [facility] Influenza High Dose 2019-02-13 Completed Unive rsity of 00:00:00 [facility] Influenza High Dose 2019-02-13 Completed Unive rsity of 00:00:00 [facility] Influenza High Dose 2019-02-13 Completed Unive rsity of 00:00:00 [facility] Influenza High Dose 2019-02-13 Completed Unive rsity of 00:00:00 [facility] Influenza High Dose 2019-02-13 Completed Unive rsity of 00:00:00 [facility] Influenza High Dose 2019-02-13 Completed Unive rsity of 00:00:00 [facility] Influenza High Dose 2019-02-13 Completed Unive rsity of 00:00:00 [facility] Influenza High Dose 2019-02-13 Completed Unive rsity of 00:00:00 [facility] Influenza High Dose 2019-02-13 Completed Unive rsity of 00:00:00 [facility] Influenza High Dose 2019-02-13 Completed Unive rsity of 00:00:00 [facility] Influenza High Dose 2019-02-13 Completed Unive rsity of 00:00:00 [facility] Influenza High Dose 2019-02-13 Completed Unive rsity of 00:00:00 [facility] Influenza High Dose 2019-02-13 Completed Unive rsity of 00:00:00 [facility] Influenza High Dose 2019-02-13 Completed Unive rsity of 00:00:00 [facility] Influenza High Dose 2019-02-13 Completed Unive rsity of 00:00:00 [facility] Influenza High Dose 2019-02-13 Completed Unive rsity of 00:00:00 [facility] Influenza High Dose 2019-02-13 Completed Unive rsity of 00:00:00 [facility] Influenza High Dose 2019-02-13 Completed Unive rsity of 00[facility]00:00 [facility] [facility] Influenza High Dose 2019-02-13 Completed Unive rsity of 00:00:00 [facility] Influenza High Dose 2019-02-13 Completed Unive rsity of 00:00:00 [facility] Influenza High Dose 2019-02-13 Completed Unive rsity of 00:00:00 [facility] Influenza High Dose 2019-02-13 Completed Unive rsity of 00:00:00 [facility] Influenza High Dose 2019-02-13 Completed Unive rsity of 00:00:00 [facility] Influenza High Dose 2019-02-13 Completed Unive rsity of 00:00:00 [facility] Influenza High Dose 2019-02-13 Completed Unive rsity of 00:00:00 [facility] Influenza High Dose 2019-02-13 Completed Unive rsity of 00:00:00 [facility] Influenza High Dose 2019-02-13 Completed Unive rsity of 00:00:00 [facility] Influenza High Dose 2019-02-13 Completed Unive rsity of 00:00:00 [facility] Influenza High Dose 2019-02-13 Completed Unive rsity of 00:00:00 [facility] Influenza High Dose 2019-02-13 Completed Unive rsity of 00:00:00 [facility] Influenza Hd 2019-02-13 Completed [facility] Colle ge 00:00:00 of Medicine Influenza Hd 2019-02-13 Completed [facility] Colle ge 00:00:00 of Medicine TDAP 2017-11-10 Completed University of 00:00:00 [facility] TDAP 2017-11-10 Completed University of 00:00:00 [facility] TDAP 2017-11-10 Completed University of 00:00:00 [facility] TDAP 2017-11-10 Completed University of 00:00:00 [facility] TDAP 2017-11-10 Completed University of 00:00:00 [facility] TDAP 2017-11-10 Completed University of 00:00:00 [facility] TDAP 2017-11-10 Completed University of 00:00:00 [facility] TDAP 2017-11-10 Completed University of 00:00:00 [facility] 2017-11-10 Completed University of 00:00:00 [facility] 2017-11-10 Completed University of 00:00:00 [facility] 2017-11-10 Completed University of 00:00:00 [facility] 2017-11-10 Completed University of 00:00:00 [facility] 2017-11-10 Completed University of 00:00:00 [facility] 2017-11-10 Completed University of 00:00:00 [facility] 2017-11-10 Completed University of 00:00:00 [facility] 2017-11-10 Completed University of 00:00:00 [facility] 2017-11-10 Completed University of 00:00:00 [facility] 2017-11-10 Completed University of 00:00:00 [facility] 2017-11-10 Completed University of 00:00:00 [facility] 2017-11-10 Completed University of 00:00:00 [facility] 2017-11-10 Completed University of 00:00:00 [facility] 2017-11-10 Completed University of 00:00:00 [facility] 2017-11-10 Completed University of 00:00:00 [facility] 2017-11-10 Completed University of 00:00:00 [facility] 2017-11-10 Completed University of 00:00:00 [facility] 2017-11-10 Completed University of 00:00:00 [facility] 2017-11-10 Completed University of 00:00:00 [facility] 2017-11-10 Completed University of 00:00:00 [facility] 2017-11-10 Completed University of 00:00:00 [facility] 2017-11-10 Completed University of 00:00:00 [facility] 2017-11-10 Completed University of 00:00:00 [facility] 2017-11-10 Completed [facility] 00:00:00 of Medicine Tdap 2017-11-10 Completed [facility] 00:00:00 of Medicine Pneumococcal 2017-06-09 Completed University o f Polysaccharide, 00:00:00 [facility] PPSV23 (PNEUMOVAX) Branch Pneumococcal 2017-06-09 Completed University [...] ical PPSV23 (PNEUMOVAX) Branch Pneumococcal 2017-06-09 Completed [facility] Colle ge Polysaccharide 00:00:00 of Medicin e Pneumococcal 2017-06-09 Completed [facility] Colle ge Polysaccharide 00:00:00 of Medicin e Influenza High Dose 2016-11-14 Completed Unive rsity of 00:00:00 [facility] Influenza High Dose 2016-11-14 Completed Unive rsity of 00:00:00 [facility] Influenza High Dose 2016-11-14 Completed Unive rsity of 00:00:00 [facility] Influenza High Dose 2016-11-14 Completed Unive rsity of 00:00:00 [facility] Influenza High Dose 2016-11-14 Completed Unive rsity of 00:00:00 [facility] Influenza High Dose 2016-11-14 Completed Unive rsity of 00:00:00 [facility] Influenza High Dose 2016-11-14 Completed Unive rsity of 00:00:00 [facility] Influenza High Dose 2016-11-14 Completed Unive rsity of 00:00:00 [facility] Influenza High Dose 2016-11-14 Completed Unive rsity of 00:00:00 [facility] Influenza High Dose 2016-11-14 Completed Unive rsity of 00:00:00 [facility] Influenza High Dose 2016-11-14 Completed Unive rsity of 00:00:00 [facility] Influenza High Dose 2016-11-14 Completed Unive rsity of 00:00:00 [facility] Influenza High Dose 2016-11-14 Completed Unive rsity of 00:00:00 [facility] Influenza High Dose 2016-11-14 Completed Unive rsity of 00:00:00 [facility] Influenza High Dose 2016-11-14 Completed Unive rsity of 00:00:00 [facility] Influenza High Dose 2016-11-14 Completed Unive rsity of 00:00:00 [facility] Influenza High Dose 2016-11-14 Completed Unive rsity of 00:00:00 [facility] Influenza High Dose 2016-11-14 Completed Unive rsity of 00:00:00 [facility] Influenza High Dose 2016-11-14 Completed Unive rsity of 00:00:00 [facility] Influenza High Dose 2016-11-14 Completed Unive rsity of 00:00:00 [facility] Influenza High Dose 2016-11-14 Completed Unive rsity of 00:00:00 [facility] Influenza High Dose 2016-11-14 Completed Unive rsity of 00:00:00 [facility] Influenza High Dose 2016-11-14 Completed Unive rsity of 00:00:00 [facility] Influenza High Dose 2016-11-14 Completed Unive rsity of 00:00:00 [facility] Influenza High Dose 2016-11-14 Completed Unive rsity of 00:00:00 [facility] Influenza High Dose 2016-11-14 Completed Unive rsity of 00:00:00 [facility] Influenza High Dose 2016-11-14 Completed Unive rsity of 00:00:00 [facility] Influenza High Dose 2016-11-14 Completed Unive rsity of 00:00:00 [facility] Influenza High Dose 2016-11-14 Completed Unive rsity of 00:00:00 [facility] Influenza High Dose 2016-11-14 Completed Unive rsity of 00:00:00 [facility] Influenza High Dose 2016-11-14 Completed Unive rsity of 00:00:00 [facility] Branch Influenza Hd 2016-11-14 Completed [facility] Colle ge 00:00:00 of Medicine Influenza Hd 2016-11-14 Completed [facility] Colle ge 00:00:00 of Medicine Vital Signs Vital Name Observation Time Observation Value Comments Source HEIGHT 2019-07-08 00:00:00 147.3 cm WEIGHT 2019-07-08 00:00:00 57.743 kg Systolic blood 2022-03-11 20:35:00 136 mm[Hg] Univer sity of pressure [facility] Diastolic blood 2022-03-11 20:35:00 76 mm[Hg] Unive rsity of pressure [facility] Heart rate 2022-03-11 20:33:00 83 /min Universi ty of [facility] Body temperature 2022-03-11 20:33:00 37.11 Monique Univ ersity of [facility] Body height 2022-03-11 20:33:00 157.5 cm Universi ty of [facility] Body weight 2022-03-11 20:33:00 63.504 kg Universi ty of [facility] BMI 2022-03-11 20:33:00 25.61 kg/m2 Universi ty of [facility] Oxygen saturation in 2022-03-11 20:33:00 97 /min University Arterial blood by [facility] Pulse oximetry Branch Systolic blood 2022-03-11 14:27:00 145 mm[Hg] Univer sity of pressure [facility] Diastolic blood 2022-03-11 14:27:00 68 mm[Hg] Unive rsity of pressure [facility] Heart rate 2022-03-11 14:26:00 78 /min Universi ty of [facility] Body height 2022-03-11 14:26:00 157.5 cm [facility] ty [facility] Body weight 2022-03-11 14:26:00 61.236 kg [facility] BMI 2022-03-11 14:26:00 24.69 kg/m2 [facility] Oxygen saturation in 2022-03-11 14:26:00 99 /min University of Arterial blood by [facility] Pulse oximetry Branch Systolic blood 2022-02-25 23:37:00 131 mm[Hg] Univer sity of pressure [facility] Diastolic blood 2022-02-25 23:37:00 85 mm[Hg] Unive rsity of pressure [facility] Heart rate 2022-02-25 23:37:00 70 /min [facility] Body temperature 2022-02-25 23:37:00 36.83 Monique Univ [facility] Respiratory rate 2022-02-25 23:37:00 18 /min Univ ers[facility] Body height 2022-02-25 23:37:00 157.5 cm [facility] Body weight 2022-02-25 23:37:00 58.968 kg [facility] BMI 2022-02-25 23:37:00 23.78 kg/m2 [facility] Oxygen saturation in 2022-02-25 23:37:00 99 /min University of Arterial blood by [facility] Pulse oximetry Branch Systolic blood 2022-01-21 21:34:00 133 mm[Hg] Univer sity of pressure [facility] Diastolic blood 2022-01-21 21:34:00 75 mm[Hg] Unive rsity of pressure [facility] Heart rate 2022-01-21 21:34:00 80 /min [facility] Body temperature 2022-01-21 21:34:00 36.5 Monique Univ [facility] Body height 2022-01-21 21:34:00 144.8 cm [facility] Body weight 2022-01-21 21:34:00 62.596 kg [facility] BMI 2022-01-21 21:34:00 29.86 kg/m2 [facility] Oxygen saturation in 2022-01-21 21:34:00 96 /min [facility] blood by [facility] Pulse oxim[facility] Systolic blood 2021-12-24 20:33:00 135 mm[Hg] Univer sity of pressure [facility] Diastolic blood 2021-12-24 20:33:00 65 mm[Hg] Unive rsity of pressure [facility] Heart rate 2021-12-24 20:33:00 73 /min [facility] Body temperature 2021-12-24 20:33:00 36.56 Monique Univ [facility] Body height 2021-12-24 20:33:00 144.8 cm [facility] Body weight 2021-12-24 20:33:00 62.596 kg [facility] BMI 2021-12-24 20:33:00 29.86 kg/m2 [facility] Oxygen saturation in 2021-12-24 20:33:00 96 /min University of Arterial blood by [facility] angelica Pulse oximetry Branch Systolic blood 2021-12-03 18:46:00 148 mm[Hg] Univer sity of pressure [facility] Diastolic blood 2021-12-03 18:46:00 70 mm[Hg] Unive rsity of pressure [facility] Heart rate 2021-12-03 18:45:00 97 /min [facility] Body temperature 2021-12-03 18:45:00 37.33 Monique Univ [facility] Body height 2021-12-03 18:45:00 144.8 cm [facility] Body weight 2021-12-03 18:45:00 62.143 kg [facility] BMI 2021-12-03 18:45:00 29.65 kg/m2 [facility] Oxygen saturation in 2021-12-03 18:45:00 96 /min University of Arterial blood by [facility] angelica Pulse oximetry Branch Systolic blood 2021-11-26 20:46:00 158 mm[Hg] Univer sity of pressure [facility] Diastolic blood 2021-11-26 20:46:00 72 mm[Hg] Unive rsity of pressure [facility] Heart rate 2021-11-26 20:46:00 98 /min [facility] Body height 2021-11-26 20:46:00 160 cm [facility] Body weight 2021-11-26 20:46:00 61.689 kg [facility] BMI 2021-11-26 20:46:00 24.09 kg/m2 [facility] Systolic blood 2021-11-12 19:46:00 132 mm[Hg] [facility] Medicine Diastolic blood 2021-11-12 19:46:00 57 mm[Hg] [facility] Medicine Heart rate 2021-11-12 19:46:00 78 /min [facility] Body temperature 2021-11-12 19:46:00 36.67 Monique [facility] Respiratory rate 2021-11-12 19:46:00 16 /min [facility] Body height 2021-11-12 19:46:00 160 cm [facility] Body weight 2021-11-12 19:46:00 61.689 kg [facility] BMI 2021-11-12 19:46:00 24.09 kg/m2 [facility] Oxygen saturation in 2021-11-12 19:46:00 96 /min [facility] Arterial blood by [facility] Pulse oximetry Systolic blood 2021-11-02 18:10:00 152 mm[Hg] Univer [facility]ity of pressure [facility] Diastolic blood 2021-11-02 18:10:00 73 mm[Hg] Unive rsity of pressure [facility] Heart rate 2021-11-02 18:10:00 83 /min [facility] Body height 2021-11-02 18:10:00 160 cm [facility] Body weight 2021-11-02 18:10:00 61.689 kg [facility] BMI 2021-11-02 18:10:00 24.09 kg/m2 [facility] Oxygen saturation in 2021-11-02 18:10:00 95 /min [facility] Arterial blood by [facility] Pulse oximetry Branch Systolic blood 2021-11-01 15:17:00 155 mm[Hg] [facility] Medicine Diastolic blood 2021-11-01 15:17:00 70 mm[Hg] [facility] Medicine Heart rate 2021-11-01 15:17:00 80 /min [facility] Body height 2021-11-01 15:17:00 160 cm [facility] olle of [facility] Body weight 2021-11-01 15:17:00 58.968 kg [facility] BMI 2021-11-01 15:17:00 23.03 kg/m2 [facility] Systolic blood 2021-10-25 20:11:00 138 mm[Hg] Univer sity of pressure [facility] Diastolic blood 2021-10-25 20:11:00 64 mm[Hg] Unive rsity of pressure [facility] Heart rate 2021-10-25 20:11:00 64 /min Universi ty of [facility] Body temperature 2021-10-25 20:11:00 36.5 Monique Univ ersity of [facility] Body height 2021-10-25 20:11:00 160 cm Universi ty [facility] Body weight 2021-10-25 20:11:00 61.689 kg Universi ty [facility] BMI 2021-10-25 20:11:00 24.09 kg/m2 Universi ty [facility] Oxygen saturation in 2021-10-25 20:11:00 96 /min [facility] Arterial blood by [facility] Pulse oximetry Branch Systolic blood 2021-05-03 15:25:00 121 mm[Hg] [facility] pressure Medicine Diastolic blood 2021-05-03 15:25:00 65 mm[Hg] [facility] pressure Medicine Heart rate 2021-05-03 15:25:00 88 /min [facility] Systolic blood 2020-12-23 21:48:00 137 mm[Hg] [facility] pressure Medicine Diastolic blood 2020-12-23 21:48:00 69 mm[Hg] [facility] Medicine Heart rate 2020-12-23 21:48:00 73 /min [facility] Body temperature 2020-12-23 21:48:00 36.83 Monique [facility] Respiratory rate 2020-12-23 21:48:00 15 /min [facility] Body height 2020-12-23 21:48:00 162.6 cm [facility] C ollege of [facility] Body weight 2020-12-23 21:48:00 58.968 kg [facility] ollege of Medicine BMI 2020-12-23 21:48:00 22.31 kg/m2 [facility] ollege of Medicine Systolic blood 2020-05-04 15:57:00 131 mm[Hg] [facility] pressure Medicine Diastolic blood 2020-05-04 15:57:00 60 mm[Hg] [facility] Medicine Heart rate 2020-05-04 15:57:00 67 /min [facility] ollege of Medicine Respiratory rate 2020-05-04 15:57:00 18 /min [facility] Body height 2020-05-04 15:57:00 147.3 cm [facility] ollege of [facility] Body weight 2020-05-04 15:57:00 58.514 kg [facility] ollege of Medicine BMI 2020-05-04 15:57:00 26.96 kg/m2 [facility] ol[facility] of Medicine Systolic blood 2020-01-06 16:58:00 146 mm[Hg] [facility] pressure Medicine Diastolic blood 2020-01-06 16:58:00 71 mm[Hg] [facility] Medicine Heart rate 2020-01-06 16:58:00 88 /min [facility] ollege of Medicine Body temperature 2020-01-06 16:58:00 36.44 Monique [facility] Respiratory rate 2020-01-06 16:58:00 16 /min [facility] Body height 2020-01-06 16:58:00 144.8 cm [facility] ollege of Medicine Body weight 2020-01-06 16:58:00 58.968 kg [facility] ol[facility] of Medicine BMI 2020-01-06 16:58:00 28.13 kg/m2 [facility] ol[facility] of Medicine Systolic blood 2020-01-06 16:58:00 146 mm[Hg] [facility] pressure Medicine Diastolic blood 2020-01-06 16:58:00 71 mm[Hg] [facility] pressure Medicine Heart rate 2020-01-06 16:58:00 88 /min [facility] C ollege of Medicine Body temperature 2020-01-06 16:58:00 36.44 Monique [facility] Respiratory rate 2020-01-06 16:58:00 16 /min [facility] Body height 2020-01-06 16:58:00 144.8 cm [facility] C ollege of Medicine Body weight 2020-01-06 16:58:00 58.968 kg [facility] ollege of Medicine BMI 2020-01-06 16:58:00 28.13 kg/m2 [facility] C ollege of Medicine Systolic blood 2019-10-07 14:05:00 127 mm[Hg] [facility] pressure Medicine Diastolic blood 2019-10-07 14:05:00 67 mm[Hg] [facility] pressure Medicine Heart rate 2019-10-07 14:05:00 70 /min [facility] ollege of Medicine Body temperature 2019-10-07 14:05:00 36.39 Monique [facility] Respiratory rate 2019-10-07 14:05:00 16 /min [facility] Body height 2019-10-07 14:05:00 162.6 cm [facility] C ollege of Medicine Body weight 2019-10-07 14:05:00 58.968 kg [facility] ollege of Medicine BMI 2019-10-07 14:05:00 22.31 kg/m2 [facility] ollege of Medicine Systolic blood 2019-10-07 14:05:00 127 mm[Hg] [facility] Medicine Diastolic blood 2019-10-07 14:05:00 67 mm[Hg] [facility] Medicine Heart rate 2019-10-07 14:05:00 70 /min [facility] ollege of Medicine Body temperature 2019-10-07 14:05:00 36.39 Monique [facility] Respiratory rate 2019-10-07 14:05:00 16 /min [facility] Body height 2019-10-07 14:05:00 162.6 cm [facility] C ollege of Medicine Body weight 2019-10-07 14:05:00 58.968 kg [facility] ollege of Medicine BMI 2019-10-07 14:05:00 22.31 kg/m2 [facility] C ollege of Medicine HEIGHT 2019-07-08 00:00:00 147.3 cm WEIGHT 2019-07-08 00:00:00 57.743 kg pulse rate 2019-07-01 08:14:01 80 /min [facility] blood pressure, 2019-07-01 08:14:01 71 mm[Hg] [facility] diastolic Health blood pressure, 2019-07-01 08:14:01 171 mm[Hg] [facility] systolic Health pulse rate 2019-06-25 09:35:00 76 /min [facility] blood pressure, 2019-06-25 09:35:00 77 mm[Hg] [facility] diastolic Health blood pressure, 2019-06-25 09:35:00 153 mm[Hg] [facility] systolic Health Procedures Procedure Date / Time Performing Clinician Source Performed CBC WITH DIFF 2022-03-11 21:42[facility] REFERRAL- 2022-02-23 06:01:00 [facility] Un[facility]igned, No [facility] REQUEST/RESPONSE Name Medical Branch FLU 2021-12-24 21:05:18 Chary Donald [facility] [id number]+YR,0. Medical Branch 5 ML,IM,ADJUVANTED,QUAD([place] UAD) MR BRAIN WO CONTRAST 2021-11-19 15:41:00 [facility] 2021-11-18 05:01:00 Doctor Unassigned, No [facility] RECORDS Name Medical Branch COMPREHENSIVE METABOLIC 2021-11-12 20:56:00 Italia Preston [facility] PANEL Medicine HEMOGLOBIN A1C 2021-11-12 20:56:00 Italia Preston [facility] CBC W/AUTO DIFF WITH 2021-11-12 20:56:00 Italia Preston [facility] THYROID CASCADE PROFILE 2021-11-12 20:56:00 Italia Preston [facility] COMPREHENSIVE METABOLIC 2021-11-12 15:56:00 [facility] HEMOGLOBIN A1C 2021-11-12 15:56:00 [facility] CBC W/AUTO DIFF WITH 2021-11-12 15:56:00 [facility] THYROID CASCADE PROFILE 2021-11-12 15:56:00 [facility] HANDICAPPED PLACARD 2021-11-12 15:45:36 [facility] EXTERNAL PROVIDER 2021-11-01 05:01:00 Doctor Unassigned, No [facility] RECORDS Name Medical Branch POCT URINALYSIS DIPSTICK 2021-11-01 00:00:00 Keerthi Cuenca [facility] AUTHORIZATION TO RELEASE 2021-10-25 05:01:00 Doctor Unassigned, No [facility] Name Medical Branch AMB REF TO UROLOGY 2021-05-03 10:53:33 [facility] POCT URINALYSIS DIPSTICK 2020-12-23 00:00:00 Keerthi Cuenca [facility] POCT URINALYSIS DIPSTICK 2020-12-23 00:00:00 [facility] POCT URINALYSIS DIPSTICK 2020-01-06 00:00:00 Keerthi Cuenca [facility] BASIC METABOLIC PANEL 2019-10-07 14:32:00 Keerthi Cuenca [facility] MAGNESIUM 2019-10-07 14:32:00 Keerthi Cuenca [facility] URIC ACID 2019-10-07 14:32:00 Keerthi Cuenca [facility] Plan of Care Planned Activity Planned [...] RISK Medical C enter SCREENING] Future Scheduled 2022-02-[address] [facility] Test 00:00:00 (12+) [code = Medical Center DEPRESSION SCREENING (12+)] Future Scheduled 2022-02-13 FALLS RISK SCREENING [facility] Test 00:00:00 [code = FALLS RISK Medical C enter SCREENING] Future Scheduled 2021-11-15 Diabetic foot [employer] Test 19:39:46 examination of Medicine (regime/therapy) [code = 422762386] Future Scheduled 2021-11-15 ANNUAL DIABETIC [facility] Test 19:39:46 RETINOPATHY of Medicine SCREENING [code = ANNUAL DIABETIC RETINOPATHY SCREENING] Future Scheduled 2021-11-15 ZOSTER VACCINE (1 of [facility] Test 19:39:46 2) [code = ZOSTER of Medicin e VACCINE (1 of 2)] Future Scheduled 2021-11-15 Screening for [facility] Test 19:39:46 osteoporosis of Medicine (procedure) [code = 166991057] Future Scheduled 2021-11-15 Pneumococcal 65+ (2 [employer] Test 19:39:46 - PCV) [code = of Medicine Pneumococcal 65+ (2 - PCV)] Future Scheduled 2021-11-15 MEDICARE AWV [facility] Test 19:39:46 (Initial) [code = of Medicin e MEDICARE AWV (Initial)] Future Scheduled 2021-11-15 COVID-19 Vaccine (2 [employer] Test 19:39:46 - Moderna series) of Medicin e [code = COVID-19 Vaccine (2 - Moderna series)] Future Scheduled 2021-11-15 FLU VACCINE > 6 [facility] Test 19:39:46 MONTHS [code = FLU of Medici ne VACCINE > 6 MONTHS] Future Scheduled 2021-11-15 Hemoglobin A1c [facility] Test 19:39:46 measurement of Medicine (procedure) [code = 03053574] Future Scheduled 2021-11-15 FALL SCREEN [code = [employer] [facility] 19:39:46 FALL SCREEN] of Medicine Future Scheduled 2021-11-15 TETANUS SHOT (ADULT) [employer] Test 19:39:46 [code = TETANUS SHOT of Medi cine (ADULT)] Future Scheduled 2021-11-14 Diabetic foot [facility] Test 02:33:41 examination of Medicine (regime/therapy) [code = 217898662] Future Scheduled 2021-11-14 ANNUAL DIABETIC [facility] Test 02:33:41 RETINOPATHY of Medicine SCREENING [code = ANNUAL DIABETIC RETINOPATHY SCREENING] Future Scheduled 2021-11-14 ZOSTER VACCINE (1 of [employer] Test 02:33:41 2) [code = ZOSTER of Medicin e VACCINE (1 of 2)] Future Scheduled 2021-11-14 Screening for [facility] Test 02:33:41 osteoporosis of Medicine (procedure) [code = 939341499] Future Scheduled 2021-11-14 Pneumococcal 65+ (2 [employer] Test 02:33:41 - PCV) [code = of Medicine Pneumococcal 65+ (2 - PCV)] Future Scheduled 2021-11-14 MEDICARE AWV [facility] [employer] Test 02:33:41 (Initial) [code = of Medicin e MEDICARE AWV (Initial)] Future Scheduled 2021-11-14 COVID-19 Vaccine (2 [employer] Test 02:33:41 - Moderna series) of Medicin e [code = COVID-19 Vaccine (2 - Moderna series)] Future Scheduled 2021-11-14 FLU VACCINE > 6 [facility] Test 02:33:41 MONTHS [code = FLU of Medici ne VACCINE > 6 MONTHS] Future Scheduled 2021-11-14 Hemoglobin A1c [facility] Test 02:33:41 measurement of Medicine (procedure) [code = 04452960] Future Scheduled 2021-11-14 FALL SCREEN [code = [employer] [facility] 02:33:41 FALL SCREEN] of Medicine Future Scheduled 2021-11-14 TETANUS SHOT (ADULT) [employer] Test 02:33:41 [code = TETANUS [...] Future Scheduled 2021-05-04 ZOSTER VACCINE (1 of [employer] Test 15:51:29 2) [code = ZOSTER of Medicin e VACCINE (1 of 2)] Future Scheduled 2021-05-04 Screening for [facility] Test 15:51:29 osteoporosis of Medicine (procedure) [code = 122322273] Future Scheduled 2021-05-04 Pneumococcal 65+ (1 [employer] Test 15:51:29 of 1 - PPSV23) [code of Medi cine = Pneumococcal 65+ (1 of 1 - PPSV23)] Future Scheduled 2021-05-04 MEDICARE AWV [facility] [employer] [employer] Test 15:51:29 (Initial) [code = of Medicin e MEDICARE AWV (Initial)] Future Scheduled 2021-05-04 FLU VACCINE > 6 [facility] Test 15:51:29 MONTHS [code [...] Medicine Future Scheduled 2021-05-04 TETANUS SHOT (ADULT) [employer] Test 15:51:29 [code = TETANUS SHOT of Medi cine (ADULT)] Future Scheduled 2021-05-04 US RENAL BILATERAL Expected: [employer] Test 00:00:00 [code = 69963] 05/04/2021, of Medicine Expires: 05/04/2021 Future Scheduled [...] SCREENING] Future Scheduled 2021-01-03 COVID-19 Vaccine (1) [employer] Test 08:34:34 [code = COVID-19 of Medicine Vaccine (1)] Future Scheduled 2021-01-03 ZOSTER VACCINE (1 of [employer] Test 08:34:34 2) [code = ZOSTER of Medicin e VACCINE (1 of 2)] Future Scheduled 2021-01-03 Screening for [employer] [facility] 08:34:34 osteoporosis of Medicine (procedure) [code = 824120669] Future Scheduled 2021-01-03 Pneumococcal 65+ (1 [facility] [place] Test 08:34:34 of 1 - PPSV23) [code of Medi cine = Pneumococcal 65+ (1 of 1 - PPSV23)] Future Scheduled 2021-01-03 MEDICARE AWV [facility] [employer] [employer] Test 08:34:34 (Initial) [code = of Medicin e MEDICARE AWV (Initial)] Future Scheduled 2021-01-03 FLU VACCINE > 6 [facility] Test 08:34:34 MONTHS [code = FLU of Medici ne VACCINE > 6 MONTHS] Future Scheduled 2021-01-03 FALL SCREEN [code = [facility] [place] Test 08:34:34 FALL SCREEN] of Medicine Future Scheduled 2021-01-03 TETANUS SHOT (ADULT) [facility] Test 08:34:34 [code = TETANUS SHOT of Medi cine (ADULT)] Future Scheduled 2020-10-[address] [facility] Test 00:00:00 (#1) [code = Medical Center INFLUENZA VACCINE (#1)] Diagnostic Test 2020-07-11 US RENAL BILATERAL Expected: [facility] Pending 00:00:00 [code = 60425] 07/11/2020, of Medicine Expires: 01/11/2021 Future Scheduled [...] DXA [facility] Test 00:00:00 SCAN] Medical Center Future Scheduled 1936 DXA SCAN [code = DXA [facility] Test 00:00:00 SCAN] Medical Center Future Scheduled 1936 DXA SCAN [code = DXA [facility] Test 00:00:00 SCAN] Medical Center Future Scheduled 1936 DXA SCAN [code = DXA [facility] Test 00:00:00 SCAN] Medical Center Future Scheduled 1936 DXA SCAN [code = DXA [facility] Test 00:00:00 SCAN] Medical Center Future Scheduled PTH,INTACT,WITH Ordered: [facility]lege Test CALCIUM,PO4,CREAT 10/07/2019 of Medicin e [code = NOCPT] Future Scheduled TETANUS SHOT (ADULT) [employer] Test [code = TETANUS SHOT of Medi cine (ADULT)] Future Scheduled ZOSTER VACCINE (1 of [employer] Test 2) [code = ZOSTER of Medicin e VACCINE (1 of 2)] Future Scheduled OSTEOPOROSIS [facility] [employer] Test SCREENING [code = of Medicin e OSTEOPOROSIS SCREENING] Future Scheduled MEDICARE AWV [facility] [employer] Test (Initial) [code = [...] PLAN] Future Scheduled ZOSTER VACCINE (1 of [employer] Test 2) [code = ZOSTER of Medicin e VACCINE (1 of 2)] Future Scheduled OSTEOPOROSIS [facility] [employer] Test SCREENING [code = of Medicin e OSTEOPOROSIS SCREENING] Future Scheduled MEDICARE IPPE [facility] Test (WELCOME TO of [facility] MEDICARE) [code = MEDICARE IPPE (WELCOME TO MEDICARE)] Future Scheduled FLU VACCINE > 6 [facility] Test MONTHS [code = FLU of Medici ne VACCINE > 6 MONTHS] Future Scheduled FALL SCREEN [code = [employer] FALL SCREEN] of Medicine Future Scheduled TETANUS SHOT (ADULT) [employer] Test [code = TETANUS SHOT of Medi cine (ADULT)] Future Scheduled COVID-19 Vaccine (1) [employer] Test [code = COVID-19 of Medicine Vaccine (1)] Future Scheduled BMI FOLLOW UP PLAN [employer] Test [code = BMI FOLLOW of Medici ne UP PLAN] Future Scheduled ZOSTER VACCINE (1 of [employer] Test 2) [code = ZOSTER of Medicin e VACCINE (1 of 2)] Future Scheduled Screening for [facility]ge Test osteoporosis of Medicine (procedure) [code = 749278200] Future Scheduled MEDICARE IPPE [facility] Test (WELCOME TO of Medicine MEDICARE) [code = MEDICARE IPPE (WELCOME TO MEDICARE)] Future Scheduled FLU VACCINE > 6 [facility] C [facility]lege Test MONTHS [code = FLU of Medici ne VACCINE > 6 MONTHS] Future Scheduled FALL SCREEN [code = [employer] FALL SCREEN] of Medicine Future Scheduled TETANUS SHOT (ADULT) [employer] Test [code = TETANUS SHOT of Medi cine (ADULT)] Encounters Start End Encounter Admission Attending Care Care Encounter Source Date/Time Date/Time Type Type Clinicians Facility Department ID 2020-11-17 [facility] [id number] [facility] 14:52:09 LILIANA 2022-04-15 2022-04-15 Outpatient Braulio CUNNINGHAM [facility] [id number] [facility] 09:20:00 09:20:00 [facility] 2022-04-11 2022-04-11 Outpatient WON SALDIVAR [facility] [id number] [facility] 09:00:00 09:00:00 WON MATT [facility] 2022-03-25 2022-03-25 Outpatient [facility] [id number] [facility] 00:00:00 00:00:00 RENY Miller e of Medicin e 2022-03-11 2022-03-11 Care Taker Lab, Ang - Db [facility] 1.2.840.1 14 [id number] Univers 15:30:00 15:47:[address] 350.1.13.10 [facility] 4.2.7.2.686 Kilo as KRZYSZTOF?BLEA [phone] [address] MEDICAL OFFICE BUILDING 2022-03-11 2022-03-11 Outpatient R OCTAVIO [facility] [id number] Univers 13:40:00 15:35:06 ANGELA karen [facility] 2022-03-11 2022-03-11 [facility] 1.2.840.114 [id number] Univers 13:40:00 15:35:06 Visit [facility] 350.1.13.10 ity of [place] 4.2.7.2.686 Kilo as KRZYSZTOF?BLEA [phone] Nc salvatore ESTRADA [address] MEDICAL OFFICE [facility] 2022-03-11 2022-03-11 Office [facility] 1.2.840.114 [id number] Univers 08:00:00 09:15:25 Visit [facility] 350.1.13.10 it y of [place] 4.2.7.2.686 Kilo as KRZYSZTOF?BLEA [phone] [facility] 092 [facility] OFFICE [facility] 2022-03-04 2022-03-04 Outpatient R NIRMALA [facility] [id number] Univers 10:30:00 10:30:00 [facility] 2022-02-25 2022-02-25 Urgent Rea Natale [facility] 1.2.840.114 [id number] Univers 17:40:00 18:00:00 Care Unknown, [facility] 350.1.13.10 ity of [place] 4.2.7.2.686 Kilo as KRZYSZTOF?BLEA [phone] [facility] [address] MEDICAL OFFICE [facility] 2022-02-25 2022-02-25 Outpatient R REA [facility] [id number] Univers 17:40:00 17:40:00 NATALE karen [facility] 2022-02-25 2022-02-25 [facility] [id number] Univers 14:00:00 14:00:00 ANGELA [facility] 2022-02-23 2022-02-23 Orders Doctor TIJERINA 1.2.840.114 [id number] Univers 00:00:00 00:00:00 Only Unassigned, MACKENZIE 350.1.13.10 ity of [place] [facility] 4.2.7.2.686 Kilo as [phone] [address] 2022-01-21 2022-01-21 Outpatient R OCTAVIO [facility] [id number] Univers 15:40:00 16:34:00 ANGELA ity [facility] 2022-01-21 2022-01-21 Office [facility] 1.2.840.114 [id number] Univers 15:40:00 16:34:00 Visit [facility] 350.1.13.10 ity of [place] 4.2.7.2.686 Kilo as KRZYSZTOF?BLEA [phone] [address] OFFICE [facility] 2021-12-31 2021-12-31 Out[facility] [id number] Univers 11:20:00 11:20:00 [facility] 2021-12-24 2021-12-24 Outpatient R ODILON [facility] [id number] Univers 14:30:00 15:49:08 CHARY itkaren [facility] 2021-12-24 2021-12-24 Office [facility] 1.2.840.114 [id number] Univers 14:30:00 15:49:08 Visit [facility] 350.1.13.10 i ty of [place] 4.2.7.2.686 Kilo as KRZYSZTOF?BLEA [phone] [address] 2021-12-23 2021-12-23 Abstract [facility] 1.2.840.114 [id number] Univers 00:00:00 00:00:00 [facility] 350.1.13.10 ity of [place] 4.2.7.2.686 Kilo as KRZYSZTOF?BLEA [phone] [address] OFFICE [facility] 2021-12-17 2021-12-17 Outpatient R BETO [facility] [id number] Univers 11:00:00 11:00:00 DANIEL collins o f [facility] 2021-12-17 2021-12-17 Refill [facility] 1.2.840.114 [id number] Univers 00:00:00 00:00:00 [facility] 350.1.13.10 ity of [place] 4.2.7.2.686 Kilo as KRZYSZTOF?BLEA [id number] Nc salvatore ESTRADA [address] [place] [address] MEDICAL OFFICE [facility] 2021-12-10 2021-12-10 Outpatient R OCTAVIO, [facility] [id number] Univers 09:20:00 09:20:00 ANGELA ity [facility] 2021-12-10 2021-12-10 Outpatient R OCTAVIO, [facility] [id number] Univers 09:20:00 09:20:00 [place] ity [facility] 2021-12-03 2021-12-03 Outpatient R OCTAVIO, [facility] [id number] Univers 13:40:00 14:38:59 [facility] 2021-12-03 2021-12-03 Office [facility] 1.2.840.114 [id number] Univers 13:40:00 14:38:59 Visit [facility] 350.1.13.10 ity of [place] 4.2.7.2.686 Kilo as KRZYSZTOF?BLEA [phone] Nc salvatore ESTRADA [address] [place] [address] OFFICE [facility] 2021-11-27 2021-11-27 Refill [facility] 1.2.840.114 [id number] Univers 00:00:00 00:00:00 [facility] 350.1.13.10 ity of [place] 4.2.7.2.686 Kilo as KRZYSZTOF?BLEA [phone] Nc salvatore ESTRADA [address] [place] [address] OFFICE [facility] 2021-11-26 2021-11-26 Outpatient WON SALDIVAR [facility] [id number] Univers 15:40:00 16:24:04 WON MATT [facility] 2021-11-26 2021-11-26 Office Jace [facility] 1.2.840.114 [id number] Univers 15:40:00 16:24:04 Visit Won [facility] 350.1.13.10 [facility] 4.2.7.2.686 Kilo as KRZYSZTOF?BLEA [phone] Nc dical [address] MEDICAL OFFICE BUILDING 2021-11-19 2021-11-19 Outpatient R WON MATT [facility] [id number] Univers 09:57:12 23:59:00 WON MATT [facility] 2021-11-19 2021-11-19 Hospital [facility] 1.2.143.592 [id number] Univers 09:57:12 23:59:00 Encounter [facility] 350.1.13.10 ity of [place] 4.2.7.2.686 [facility] [phone] [facility] angelica [address] 2021-11-18 2021-11-18 Orders Doctor LILLIANA 1.2.840.114 [id number] Univers 00:00:00 00:00:00 Only Unassigned, MACKENZIE 350.1.13.10 ity of [place] [facility] 4.2.7.2.686 [facility] [phone] [facility] angelica [address] 2021-11-12 2021-11-12 Office MOHAN [facility] 1.2.840.114 [id number] [facility] 14:36:20 15:29:10 Visit , ITALIA AMBULATOR 350.1.13.21 [facility] 0.2.7.2.686 [id number] [facility] raimundo 800 e 2021-11-09 2021-11-09 Outpatient Braulio PÉREZ [facility] [id number] Univers 13:00:00 13:00:00 DANIEL woodruff f [facility] 2021-11-05 2021-11-05 Outpatient R OCTAVIO [facility] [id number] Univers 10:40:00 10:40:00 ANGELA collins [facility] 2021-11-02 2021-11-02 Outpatient WON SALDIVAR [facility] [id number] Univers 13:00:00 14:14:42 WON MATT [facility] 2021-11-02 2021-11-02 Office Jace [facility] 1.2.840.114 [id number] Univers 13:00:00 14:14:42 Visit Won Serra [facility] 350.1.13.10 ity of [place] 4.2.7.2.686 Kilo as KRZYSZTOF?BLEA [phone] [address] MEDICAL OFFICE [facility] 2021-11-01 2021-11-01 Office Link, [facility] 1.2.840.114 [id number] [facility] 09:45:00 10:00:00 Visit Keerthi Dias AMBULATOR 350.1.13.21 College Y 0.2.7.2.686 of [phone] [facility] 300 e 2021-11-01 2021-11-01 Orders Doctor LILLIANA 1.2.840.114 [id number] Univers 00:00:00 00:00:00 Only Unassigned, MACKENZIE 350.1.13.10 ity of [place] [facility] 4.2.7.2.686 Kilo as [phone] [address] 2021-10-28 2021-10-28 Telephone [facility] 1.2.869.281 [id number] Univers 00:00:00 00:00:00 [facility] 350.1.13.10 ity of [place] 4.2.7.2.686 Kilo as KRZYSZTOF?BLEA [phone] [address] MEDICAL OFFICE [facility] 2021-10-26 2021-10-26 Telephone [facility] 1.2.375.028 [id number] Univers 00:00:00 00:00:00 Angela HEALTH 350.1.13.10 ity of [place] 4.2.7.2.686 Kilo as KRZYSZTOF?BLEA [phone] [address] MEDICAL OFFICE [facility] 2021-10-25 2021-10-25 Outpatient R [facility] [id number] Univers 14:40:00 15:55:58 ANGELA [facility] 2021-10-25 2021-10-25 Office [facility] 1.2.840.114 [id number] Univers 14:40:00 15:55:58 Visit [facility] 350.1.13.10 ity of [place] 4.2.7.2.686 Kilo as KRZYSZTOF?BLEA [phone] [address] MEDICAL OFFICE [facility] 2021-10-25 2021-10-25 Telephone [facility] 1.2.470.026 [id number] Univers 00:00:00 00:00:00 Angela HEALTH 350.1.13.10 ity of [place] 4.2.7.2.686 Kilo as KRZYSZTOF?BLEA [id number] [address] OFFICE [facility] 2021-10-25 2021-10-25 Orders Doctor TIJERINA 1.2.840.114 [id number] Univers 00:00:00 00:00:00 Only Unassigned, MACKENZIE 350.1.13.10 [facility] [place] [facility] 4.2.7.2.686 Kilo as [phone] [address] 2021-10-20 2021-10-20 Telephone [facility] 1.2.088.050 [id number] Univers 00:00:00 00:00:00 Angela HEALTH 350.1.13.10 [facility] 4.2.7.2.686 Kilo as KRZYSZTOF?BLEA [phone] [address] 2021-09-24 2021-09-24 [facility] [id number] Univers 08:40:00 08:40:00 [facility] 2021-09-24 2021-09-24 Outpatient [facility] [id number] Univers 08:30:00 08:30:00 [facility] 2021-09-17 2021-09-17 Outpatient WON SALDIVAR [facility] [id number] Univers 11:00:00 11:00:00 WON MATT [facility] 2021-09-13 2021-09-13 [facility] [id number] [id number] Univers 00:00:00 00:00:00 Angela HEALTH 350.1.13.10 ity of [place] 4.2.7.2.686 Kilo as KRZYSZTOF?BLEA [phone] [address] 2021-09-13 2021-09-13 Orders Doctor TIJERINA 1.2.840.114 [id number] Univers 00:00:00 00:00:00 Only Unassigned, MACKENZIE 350.1.13.10 ity of [place] [facility] 4.2.7.2.686 Kilo as [phone] [address] 2021-09-10 2021-09-10 Outpatient R OCTAVIO, [facility] [id number] Univers 16:00:00 17:05:49 ANGELA ity [facility] 2021-09-10 2021-09-10 Office [facility] 1.2.840.114 [id number] Univers 16:00:00 17:05:49 Visit [facility] 350.1.13.10 ity of [place] 4.2.7.2.686 Kilo as KRZYSZTOF?BLEA [id number] [address] OFFICE [facility] 2021-09-05 2021-09-05 Telephone [facility] 1.2.686.654 [id number] Univers 00:00:00 00:00:00 Chary A HEALTH 350.1.13.10 i ty of [place] 4.2.7.2.686 Kilo as KRZYSZTOF?BLEA [phone] [address] OFFICE [facility] 2021-09-03 2021-09-03 Care Taker Lab, Ang - [facility] 1.2.840.1 14 [id number] Univers 07:45:00 08:09:03 Visit Octavio [facility] 350.1.13.10 ity of [place] 4.2.7.2.686 Kilo as KRZYSZTOF?BLEA [phone] [facility] [address] MEDICAL OFFICE [facility] 2021-09-03 2021-09-03 Outpatient R [facility]INEKarenBLANCH[facility] [id number] Univers 07:45:00 07:45:00 ANGELA ity [facility] 2021-09-02 2021-09-02 Telephone [facility] 1.2.752.900 [id number] Univers 00:00:00 00:00:00 Angela HEALTH 350.1.13.10 ity of [place] 4.2.7.2.686 Kilo as KRZYSZTOF?BLEA [phone] [address] OFFICE [facility] 2021-08-27 2021-08-27 Care Taker Lab, Ang - Db [facility] 1.2.840.1 14 [id number] Univers 15:30:00 15:45:00 Visit Angela Cunningham [facility] 350.1.13.10 ity of [place] 4.2.7.2.686 Kilo as KRZYSZTOF?BLEA [phone] [facility] 353 [facility] OFFICE [facility] 2021-08-27 2021-08-27 Outpatient R OCTAVIO [facility] [id number] Univers 14:00:00 15:19:02 ANGELA [facility] 2021-08-27 2021-08-27 [facility] 1.2.840.114 [id number] Univers 14:00:00 15:19:02 Visit [facility] 350.1.13.10 ity of [place] 4.2.7.2.686 Kilo as KRZYSZTOF?BLEA [phone] [address] OFFICE [facility] 2021-08-20 2021-08-20 [facility]ill [facility] 1.2.840.114 [id number] Univers 00:00:00 00:00:00 Chary A HEALTH 350.1.13.10 i ty of [place] 4.2.7.2.686 Kilo as KRZYSZTOF?BLEA [id number] [address] OFFICE [facility] 2021-07-09 2021-07-09 Outpatient R ODILON [facility] [id number] Univers 16:00:00 17:29:20 CHARY [facility] 2021-07-09 2021-07-09 [facility] 1.2.840.114 [id number] Univers 16:00:00 17:29:20 Visit Chary A HEALTH 350.1.13.10 i ty of [place] 4.2.7.2.686 Kilo as KRZYSZTOF?BLEA [phone] [address] OFFICE [facility] 2021-07-09 2021-07-09 [facility] [id number] Univers 16:00:00 17:29:20 [facility] 2021-06-09 Beto Edenhim, [facility] 1.2.840.114 [id number] Univers 00:00:00 00:00:00 Management Rania HEALTH 350.1.13.10 ity of [facility] 4.2.7.2.686 Kilo as KRZYSZTOF?BLEA [phone] [address] MEDICAL OFFICE BUILDING 2021-06-09 2021-06-09 Tapan Mccartney [facility] 1.2.840.114 [id number] Univers 00:00:00 00:00:00 (Out) Ree HEALTH 350.1.13.10 it y [facility] 4.2.7.2.686 Kilo as KRZYSZTOF?BLEA [phone] [address] OFFICE [facility] 2021-06-08 2021-06-08 Laboratory Only, Ang Db Test [facility] 1.2.8 40.114 [id number] Univers 09:15:00 09:30:00 Only Tera Ricks [facility] 350.1.13.10 ity of [place] 4.2.7.2.686 Kilo as KRZYSZTOF?BLEA [phone] [address] MEDICAL OFFICE [facility] 2021-06-08 2021-06-08 Outpatient R RAMBO [facility] [id number] Univers 09:15:00 09:15:00 TERA ity of [facility] 2021-05-17 2021-05-17 Outpatient R JOEL [facility] [id number] Univers 13:30:00 13:30:00 karina NAYAK [facility] 2021-05-13 2021-05-13 Orders Doctor LILLIANA 1.2.840.114 [id number] Univers 00:00:00 00:00:00 Only Unassigned, MACKENZIE 350.1.13.10 ity of [place] [facility] 4.2.7.2.686 Kilo as [phone] [address] 2021-05-03 2021-05-03 Office LINK, [facility] 1.2.840.114 [id number] 74 [facility] 10:12:54 11:16:44 Visit KEERTHI AMBULATOR 350.1.13.21 College Y 0.2.7.2.686 of [phone] Medi raimundo 300 e 2021-05-03 2021-05-03 Outpatient BCM [facility] [id number] [facility] 00:00:00 00:00:00 Colleg e of Medicin e 2021-05-03 2021-05-03 Outpatient BCM BCM [id number] [facility] 00:00:00 00:00:00 Colleg e of Medicin e 2021-05-03 2021-05-03 [facility] 1.2.214.080 [id number] Univers 00:00:00 00:00:00 Amaya HEALTH 350.1.13.10 it y of [place] 4.2.7.2.686 Kilo as KRZYSZTOF?BLEA [phone] [address] MEDICAL OFFICE [facility] 2021-04-30 2021-04-30 Telephone [facility] 1.2.689.691 [id number] Univers 00:00:00 00:00:00 Gerardo HEALTH 350.1.13.10 it y of [place] 4.2.7.2.686 Kilo as KRZYSZTOF?BLEA [phone] [address] MEDICAL OFFICE [facility] 2021-04-29 2021-04-29 Nurse LILLIANA Jain 1.2.840.114 [id number] Univers 00:00:00 00:00:00 Triage Pamela MANN 350.1.13.10 it y of [facility] 4.2.7.2.686 Kilo as [phone] [facility] [address] 2021-04-29 2021-04-29 [facility] 1.2.840.114 [id number] Univers 00:00:00 00:00:00 Austin A [place] 350.1.13.10 ity of [place].2.7.2.[place] [phone] [address] 2021-04-23 2021-04-23 Outpatient R BETO [facility] [id number] Univers 09:00:00 09:00:00 DANIEL mitchell [facility] 2021-04-14 2021-04-14 Outpatient R JOCE [facility] [id number] Univers 09:30:00 09:30:00 WONDIFUL ity o f [facility] 2021-04-14 2021-04-14 Outpatient R JOCE [facility] [id number] Univers 09:30:00 09:30:00 WONDIFUL ity o f [facility] 2021-04-05 2021-04-05 Outpatient R ARIAN, [facility] [id number] Univers 10:30:00 10:30:00 JESSICA ity of [facility] 2021-04-05 2021-04-05 Orders Doctor LILLIANA 1.2.840.114 [id number] Univers 00:00:00 00:00:00 Only Unassigned, MACKENZIE 350.1.13.10 [facility] [place] [facility] 4.2.7.2.686 Kilo as [phone] [address] 2021-03-22 2021-03-22 Outpatient R LYLA [facility] [id number] Univers 11:30:00 12:40:29 AMAYA ity of [facility] 2021-03-22 2021-03-22 Office [facility] 1.2.840.114 [id number] Univers 11:30:00 12:40:29 Visit Amaya HEALTH 350.1.13.10 it y of [place] 4.2.7.2.686 Kilo as KRZYSZTOF?BLEA [phone] [facility] MARIZA[address] MEDICAL OFFICE BUILDING 2021-03-21 2021-03-21 [facility] 1.2.840.114 [id number] Univers 00:00:00 00:00:00 Wondiful A HEALTH 350.1.13.10 ity of [place] 4.2.7.2.686 Kilo as PROFESSIO [phone] Nc adolphtx KIT [address] [place] [address] OFFICE BUILDING ONE 2021-02-22 2021-02-22 Office LAST Eric 1.2.840.114 [id number] Univers 14:30:00 15:00:00 Visit Jessica R Y HEALTH 350.1.13.10 ity of [facility] 4.2.7.2.[place] [phone] [facility] [address] 2021-02-22 2021-02-22 Outpatient R ARIAN, [facility] [id number] Univers 14:30:00 14:30:00 JESSICA ity [facility] 2021-02-22 2021-02-22 Outpatient R ARIAN, [facility] [id number] Univers 14:30:00 14:30:00 JESSICA ity [facility] 2021-01-25 2021-01-25 Refill [facility] 1.2.840.114 [id number] Univers 00:00:00 00:00:00 Wondiful A HEALTH 350.1.13.10 ity of [place] 4.2.7.2.686 Kilo as PROFESSIO [phone] [address] OFFICE [facility] ONE 2021-01-21 2021-01-21 [facility] 1.2.840.114 [id number] Univers 00:00:00 00:00:00 Management Wondiful A HEALTH 350.1.13.10 ity of [place] 4.2.7.2.686 Kilo as KRZYSZTOF?BLEA [phone] [address] OFFICE BUILDING 2021-01-21 2021-01-21 [facility] 1.2.840.114 [id number] Univers 00:00:00 00:00:00 Management Wondiful A HEALTH 350.1.13.10 ity of [place] 4.2.7.2.686 [place]ilo as KRZYSZTOF?BLEA [phone] [address] MEDICAL OFFICE BUILDING 2021-01-20 2021-01-20 Outpatient R TERESITA [facility] [id number] Univers 09:25:28 23:59:00 SENDIL ity of [facility] 2021-01-20 2021-01-20 [facility] Austin Hobson [facility] 1.2.8 40.114 [id number] Univers 09:00:00 23:59:00 Ceci Aguilar [place] 350.1.1 3.10 ity of [place] 4.2.7.2.686 [place] [phone] [facility] [address] 2021-01-15 2021-01-15 Outpatient R JOCE [facility] [id number] Univers 10:10:00 10:10:00 WONDIFUL ity o f [facility] 2021-01-15 2021-01-15 Imm/Inj Vaccine, Ang Db Cbc Fam [facility] 1. 2.840.114 [id number] Univers 08:47:34 08:57:34 Visit Austin Hobson HEALTH 350.1.13.1 0 ity of [place] 4.2.7.2.686 Kilo as KRZYSZTOF?BLEA [phone] [facility] [address] MEDICAL OFFICE [facility] 2021-01-15 2021-01-15 Care Taker Lab, Ang - Db [facility] 1.2.840.1 14 [id number] Univers 08:20:53 08:35:53 Visit Austin Hobson HEALTH 350.1.13.1 0 ity of [place] 4.2.7.2.686 Kilo as KRZYSZTOF?BLEA [phone] Nc salvatore ESTRADA [address] MEDICAL OFFICE [facility] 2021-01-14 2021-01-14 Office [facility] 1.2.840.114 [id number] Univers 13:02:10 13:52:29 Visit Austin Goyal HEALTH 350.1.13.10 ity of [place] 4.2.7.2.686 Kilo as KRZYSZTOF?BLEA [phone] [address] OFFICE [facility] 2021-01-14 2021-01-14 Outpatient R JOCE [facility] [id number] Univers 13:00:00 13:52:29 WONDIFUL ity o f [facility] 2020-12-23 2021-01-10 Office LINK, [facility] 1.2.840.114 [id number] [facility] 15:05:24 13:24:06 Visit KEERTHI AMBULATOR 350.1.13.21 College Y 0.2.7.2.686 of [phone] [facility] 300 e 2020-12-04 2020-12-04 Hospital [facility] 1.2.741.706 [id number] Univers 12:31:25 23:59:00 Encounter Wondiful A [place] 350.1.13.10 ity of [place].7.2.[place] [phone] [facility] [address] 2020-12-04 2020-12-04 Outpatient R JOCE MADELIA [facility] [id number] Univers 10:15:00 12:44:29 WONDIFUL ity o f [facility] 2020-12-04 2020-12-04 Office Joce [facility] 1.2.840.114 [id number] Univers 10:12:12 12:44:29 Visit Wondiful A HEALTH 350.1.13.10 ity of [place] 4.2.7.2.686 Kilo as KRZYSZTOF?BLEA [phone] [address] MEDICAL OFFICE [facility] 2020-10-16 2020-10-16 Patient Joce [facility] 1.2.840.114 [id number] Univers 00:00:00 00:00:00 Secure Msg Wondiful A Health 350.1.13.10 ity of [place] 4.2.7.2.686 Kilo as Krzysztof?Blea [phone] [address] Office [facility] 2020-10-13 2020-10-13 Telephone Joce [facility] 1.2.840.114 [id number] Univers 00:00:00 00:00:00 Wondiful A Health 350.1.13.10 ity of [place] 4.2.7.2.686 Kilo as Krzysztof?Blea [phone] [address] Medical Office [facility] 2020-10-08 2020-10-08 Patient Doctor TIJERINA 1.2.840.114 [id number] Univers 00:00:00 00:00:00 Secure Msg Unassigned, MACKENZIE 350.1.13.10 ity of [place] [facility] 4.2.7.2.686 Kilo as [phone] [facility] [address] 2020-10-08 2020-10-08 Refill Joce [facility] 1.2.840.114 [id number] Univers 00:00:00 00:00:00 Wondiful A Health 350.1.13.10 ity of [place] 4.2.7.2.686 Kilo as Krzysztof?Blea [phone] Nc salvatore estrada [address] [place] [address] Medical Office Building 2020-10-08 2020-10-08 Telephone Joce [facility] 1.2.840.114 [id number] Univers 00:00:00 00:00:00 Wondiful A Health 350.1.13.10 ity of [place] 4.2.7.2.686 Kilo as Krzysztof?Blea [phone] Nc salvatore estrada [address] [place] [address] Medical Office Building 2020-10-06 2020-10-06 [facility] [id number] Univers 09:00:00 09:00:00 WONDIFUL ity o f [facility] 2020-10-05 2020-10-05 Office [facility] 1..840.114 [id number] Univers 11:08:16 12:09:41 Visit Wondiful A Health 350.1.13.10 ity of [place] 4.2.7.2.686 Kilo as Krzysztof?Blea [phone] [facility] [address] Office [facility] 2020-10-05 2020-10-05 Outpatient R JOCE [facility] [id number] Univers 11:15:00 11:15:00 WONDIFUL ity o f [facility] 2020-09-15 2020-09-15 Outpatient R JOCE [facility] [id number] Univers 14:30:00 14:30:00 WONDIFUL ity o f [facility] 2020-08-06 2020-08-06 Outpatient R BETO [facility] [id number] Univers 00:00:00 00:00:00 QIANGJUN ity o f [facility] 2020-07-20 2020-07-20 Care Taker Lab, Adc Fam Pob I [facility] 1.. 840.114 [id number] Univers 10:43:24 11:03:24 Visit Daniel Pérez Health 350.1.13.10 ity of [place] 4.2.7.2.686 Kilo as Professio [phone] Nc salvatore farrar [address] [place] [address] Office Building One 2020-07-20 2020-07-20 Office [facility] 1.2.840.114 [id number] Univers 09:55:53 10:27:33 Visit Daniel Harris 350.1.13.10 ity of [place].2.[place] [phone] [facility] 059 [facility] 2020-07-20 2020-07-20 Outpatient R [facility] [id number] Univers 10:00:00 10:00:00 DANIEL collins o f [facility] 2020-06-02 2020-06-02 Telephone [facility] 1.2.840.114 [id number] Univers 00:00:00 00:00:00 Wondiful A Health 350.1.13.10 ity of [place] 4.2.7.2.686 Kilo as Professio [phone] [facility] 044 [facility] One 2020-06-01 2020-06-01 Refill [facility] 1.2.840.114 [id number] Univers 00:00:00 00:00:00 Daniel Harris 350.1.13.10 ity of [place].7.2.[place] [phone] [facility] 059 [facility] 2020-05-18 2020-05-18 Orders Doctor LILLIANA 1.2.840.114 [id number] Univers 00:00:00 00:00:00 Only Unassigned, MACKENZIE 350.1.13.10 ity of [place] [facility] 4.2.7.2.686 Kilo as [phone] [facility] [address] 2020-05-04 2020-05-04 Office LINK, [facility] 1.2.840.114 [id number] 34 [facility] 10:43:07 12:09:48 Visit KEERTHI AMBULATOR 350.1.13.21 College Y 0.2.7.2.686 of [phone] [facility] 300 e 2020-04-29 2020-04-29 Telephone [facility] 1.2.913.274 [id number] Univers 00:00:00 00:00:00 Maurochevy Trena 350.1.13.10 ity of [place].7.2.[place] [phone] Nc dical [address] 2020-04-29 2020-04-29 Refill [facility] 1.2.840.114 [id number] 35 [facility] 00:00:00 00:00:00 Daniel [place] 350.1.13.10 ity of [place].7.2.[place] Profess[place] [phone] [address] 2020-04-29 2020-04-29 Telephone [facility] 1.2.426.499 [id number] 8858 00:00:00 00:00:00 Qiashayne [place] 350.1.13.10 [place] 4.2.7.2.686 Professio [phone] [address] 2020-04-29 2020-04-29 Refill [facility] 1.2.840.114 [id number] 00:00:00 00:00:00 Qiashayne [place] 350.1.13.10 [place] 4.2.7.2.686 Professio [phone] [address] 2020-04-25 2020-04-25 Urgent Provider, Ang Urgent Care [facility] 1.2.840.114 [id number] [facility] 10:12:47 10:32:47 Care Mine No [facility] 350.1.13.10 ity of [place] 4.2.7.2.686 Kilo as Professio [phone] [address] Office [facility] 2020-04-25 2020-04-25 Urgent Provider, [facility] 1.2.978.635 [id number] 10:12:47 10:32:47 Care [facility] 350.1.13.10 Care [place] 4.2.7.2.686 Professio [phone] [address] 2020-04-25 2020-04-25 Outpatient R ONEAL [facility] [id number] Univers 10:20:00 10:20:00 MINE collins o f [facility] 2020-04-15 2020-04-15 Telephone Joce [facility] 1.2.840.114 [id number] Univers 00:00:00 00:00:00 Wondiful A Health 350.1.13.10 ity of [place] 4.2.7.2.686 Kilo as Professio [phone] [address] Office Building One 2020-04-15 2020-04-15 Telephone Joce [facility] 1.2.840.114 [id number] 00:00:00 00:00:00 Wondiful A Health 350.1.13.10 [place] 4.2.7.2.686 Professio [phone] [place] [address] Office Building One 2020-03-07 2020-03-07 Patient Tyler [facility] 1.2.840.114 [id number] Univers 00:00:00 00:00:00 Outreach Ethan PRIMARY 350.1.13.10 i ty of [place]2.7.2.686 [place] [phone] [address] 2020-03-07 2020-03-07 Patient Tyler [facility] 1.2.840.114 [id number] 00 00:00:00 00:00:00 Outreach Ethan PRIMARY 350.1.13.10 [place] CARE 4.2.7.2.686 PAVILLION [phone] 388 2020-01-16 2020-01-16 Outpatient R JOCE [facility] [id number] Univers 16:30:00 16:30:00 WONDIFUL ity o f [facility] 2020-01-16 2020-01-16 Telemedic [facility] 1.2.840.114 [id number] Univers 16:09:25 16:24:25 ne Visit Wondiful A Health 350.1.13.10 ity of [place] 4.2.7.2.686 Kilo as Professio [phone] [address] Office [facility] One 2020-01-16 2020-01-16 Telemedici [facility] 1.2.840.114 [id number] 16:09:25 16:24:25 ne Visit Wondiful A Health 350.1.13.10 [place] 4.2.7.2.686 Professio [phone] nal 044 Office Building One 2020-01-12 2020-01-12 Orders Doctor LILLIANA 1.2.840.114 [id number] Univers 00:00:00 00:00:00 Only Unassigned, MACKENZIE 350.1.13.10 ity of [place] [facility] 4.2.7.2.686 Kilo as [phone] [facility] [address] 2020-01-12 2020-01-12 Orders Doctor LILLIANA 1.2.840.114 [id number] 00:00:00 00:00:00 Only Unassigned, MACKENZIE 350.1.13.10 [place] [facility] 4.2.7.2.686 [phone] [facility] 2020-01-06 2020-01-06 Office Link, [facility] 1.2.840.114 [id number] 10:46:16 11:44:31 Visit Keerthi E AMBULATOR 350.1.13.21 Y 0.2.7.2.686 [phone] 300 2020-01-06 2020-01-06 Office Link, [facility] 1.2.840.[id number] [place] [address] 10:46:16 11:44:31 Visit Keerthi E AMBULATOR 350.1.13.21 College Y 0.2.7.2.686 of [phone] [facility] 300 e 2019-12-16 2019-12-16 Beto Hobson [facility] 1.2.840.114 [id number] Univers 00:00:00 00:00:00 Management Wondiful A Health 350.1.13.10 ity of [place] 4.2.7.2.686 Kilo as Professio [phone] Nc dical nal [address] Office Building One 2019-12-16 2019-12-16 Beto Hobson [facility] 1.2.840.114 [id number] 162 00:00:00 00:00:00 Management Wondiful A Health 350.1.13.10 [place] 4.2.7.2.686 Professio [phone] nal 044 Office Building One 2019-12-12 2019-12-12 Care Taker 1, Adc Lab [facility] 1.2.840.114 [id number] Univers 09:36:54 09:51:54 Visit JoceAntwan atkinsrayna Jyotsna [place] 350.1.13. 10 ity of [place].2.7.2.686 [place] [phone] [address] 2019-12-12 2019-12-12 Care Taker 1, Adc Lab [facility] 1.2.840.114 [id number] 09:36:54 09:51:54 Visit Trena 350.1.13.10 [place] 4.2.7.2.686 [place] [phone] [facility] 2019-12-12 2019-12-12 Outpatient R [facility] [id number] [facility] 08:30:00 08:30:00 ity of [facility] 2019-12-12 2019-12-12 Telephone Joce MADELIA 1.2.840.114 [id number] Univers 00:00:00 00:00:00 Wondiful A Health 350.1.13.10 ity of [place] 4.2.7.2.686 Kilo as Professio [phone] [address] Office [facility] 2019-12-12 2019-12-12 Telephone Joce [facility] 1.2.840.114 [id number] 00:00:00 00:00:00 Wondiful A Health 350.1.13.10 [place] 4.2.7.2.686 Professio [phone] [place] [address] Office [facility] 2019-12-05 2019-12-05 Orders Doctor LILLIANA 1.2.840.114 [id number] 00:00:00 00:00:00 Only Unassigned, MACKENZIE 350.1.13.10 [place] [facility] [phone] 009 2019-12-05 2019-12-05 Orders Doctor LILLIANA 1.2.840.114 [id number] Univers 00:00:00 00:00:00 Only Unassigned, MACKENZIE 350.1.13.10 ity of [place] [facility] 4.2.7.2.686 Kilo as [phone] [address] 2019-11-14 2019-11-14 Case Joce [facility] 1.2.840.114 [id number] 00:00:00 00:00:00 Management Wondiful A Health 350.1.13.10 [place] 4.2.7.2.686 Professio [phone] [place] [address] Office Building One 2019-11-14 2019-11-14 Beto Hobson [facility] 1.2.840.114 [id number] Univers 00:00:00 00:00:00 Management Wondiful A Health 350.1.13.10 ity of [place] 4.2.7.2.686 Kilo as Professio [phone] [address] Office Building One 2019-11-13 2019-11-13 Beto Hobson [facility] 1.2.840.114 [id number] 00:00:00 00:00:00 Management Antwandiful A Health 350.1.13.10 [place] 4.2.7.2.686 Professio [phone] [place] [address] Office Building One 2019-11-13 2019-11-13 Beto Hobson [facility] 1.2.840.114 [id number] 775 Univers 00:00:00 00:00:00 Management Wondiful A Health 350.1.13.10 ity of [place] 4.2.7.2.686 Kilo as Professio [phone] [address] Office [facility] One 2019-11-08 2019-11-08 Care Taker Lab, Adc Fam Pob I [facility] 1.2. 840.114 [id number] [facility] 11:16:17 11:26:17 Visit Austin Hobson Health 350.1.13.1 0 ity of [place] 4.2.7.2.686 Kilo as Professio [phone] [facility] [address] Office Building One 2019-11-08 2019-11-08 Office Joce [facility] 1.2.840.114 [id number] 09:44:58 11:00:23 Visit Jamilful A Health 350.1.13.10 [place] 4.2.7.2.686 Professio [phone] [place] [address] Office Building One 2019-11-08 2019-11-08 Office Joce [facility] 1.2.840.114 [id number] [facility] 09:44:58 11:00:23 Visit Wondiful A Health 350.1.13.10 ity of [place] 4.2.7.2.686 Kilo as Professio [phone] [address] One 2019-11-08 2019-11-08 Outpatient R JOCE [facility] [id number] Univers 08:45:00 08:45:00 WONDIFUL ity o f [facility] 2019-09-02 2019-11-04 Telemedici [facility] 1.2.840.114 [id number] [facility] 09:09:51 09:25:19 ne Visit Wondiful A [place] 350.1.13.10 ity of [place].7.2.[place] [phone] [address] 2019-11-04 2019-11-04 Care Taker Lab, Adc Fam Pob I [facility] 1.. 840.114 [id number] [facility] 09:02:55 09:12:55 Visit Antwan Hobsonyasminginger [facility] 350.1.13.1 0 ity of [place] 4.2.7.2.686 Kilo as Professio [phone] [address] One 2019-11-04 2019-11-04 Outpatient R JOCE [facility] [id number] Univers 09:00:00 09:00:00 WONDIFUL ity o f [facility] 2019-10-30 2019-10-30 Refill [facility] 1.2.840.114 [id number] Univers 00:00:00 00:00:00 Wondiful A Health 350.1.13.10 ity of [place] 4.2.7.2.686 Kilo as Professio [phone] [address] Office [facility] One 2019-10-25 2019-10-25 Refshruthi [facility] 1.2.840.114 [id number] Univers 00:00:00 00:00:00 Wondiful A Health 350.1.13.10 ity of [place] 4.2.7.2.686 Kilo as Professio [phone] [address] Office [facility] One 2019-10-25 2019-10-25 Refill [facility] 1.2.840.114 [id number] Univers 00:00:00 00:00:00 [facility] 350.1.13.10 [place]y of [place] 4.2.7.2.686 [place] as Professio [phone] [place] dical nal 044 [facility] 2019-10-07 2019-10-07 Office Link, [facility] 1.2.840.114 [id number] 08:45:50 10:08:26 Visit Keerthi Dias AMBULATOR 350.1.13.21 Y 0.2.7.2.686 [phone] 300 2019-10-07 2019-10-07 Office Link, [facility] 1.2.840.[id number] [place] [address] 08:45:50 10:08:26 Visit Keerthi E AMBULATOR 350.1.13.21 College Y 0.2.7.2.686 of [phone] [facility] 300 e 2019-10-07 2019-10-07 Orders Doctor LILLIANA 1.2.840.114 [id number] Univers 00:00:00 00:00:00 Only Unassigned, MACKENZIE 350.1.13.10 ity of [place] [facility] 4.2.7.2.686 Kilo as [phone] [facility] 009 [place] 2019-09-30 2019-09-30 Office [facility] 1.2.840.114 [id number] Univers 09:15:37 09:55:50 Visit Daniel Harris 350.1.13.10 ity of [place] 4[place]2.7.2.[place] Profess[place] [phone] [place] dical nal 059 [facility] 2019-09-30 2019-09-30 Outpatient R BETO, [facility] [id number] Univers 09:40:00 09:40:00 QIANGJUN ity o f [facility] 2019-09-02 2019-09-02 Outpatient R JOCE, [facility] [id number] Univers 08:45:00 08:45:00 WONDIFUL ity o f [facility] 2019-08-30 2019-08-30 Telephone LILLIANA Donald 1.2.701.200 [id number] Univers 00:00:00 00:00:00 Chary LOBOY 350.1.13.10 i ty of HOSPITAL 4.2.7.2.686 Kilo as [phone] [address] 2019-08-29 2019-08-29 Laboratory Lab, [facility] F[facility] Pob I [facility] 1.2. 840.114 [id number] Univers 11:32:55 11:52:55 Only Amaya [facility] 350.1.13.10 ity of [place] 4.2.7.2.686 [place]ilo as Professio [phone] [address] Office [facility] 2019-08-29 2019-08-29 Outpatient R LYLA [facility] [id number] Univers 11:40:00 11:40:00 AMAYA ity of [facility] 2019-08-29 2019-08-29 Urgent Lab, [facility] 1.2.840.114 [id number] 11:00:00 11:20:00 Care Fam Pob I Health 350.1.13.10 [place] 4.2.7.2.686 Professio [phone] [place] [address] Office [facility] 2019-08-29 2019-08-29 Urgent Lab, [facility] Fam Pob I [facility] 1.2840 .114 [id number] Univers 11:00:00 11:20:00 Care Amaya [facility] 350.1.13.10 ity of [place] 4.2.7.2.686 Kilo as Professio [phone] [address] Office [facility] 2019-08-29 2019-08-29 Outpatient R [facility] [id number] Univers 11:00:00 11:00:00 ity of [facility] 2019-08-29 2019-08-29 Letter Doctor LILLIANA 1.840.114 [id number] Univers 00:00:00 00:00:00 (Out) Unassigned, MACKENZIE 350.1.13.10 ity of [place] [facility] 4.2.7.2.686 Kilo as [phone] [address] 2019-08-20 2019-08-20 [facility] 1.2840.114 [id number] Univers 00:00:00 00:00:00 Wondiful A Health 350.1.13.10 ity of [place] 4.2.7.2.686 Kilo as Professio [phone] [address] 2019-07-30 2019-07-30 Office Thacker, [facility] Encounter / Legacy 00:00:00 00:00:00 Visit Renata [id number] Com natalee [id number] [facility] 2019-07-11 2019-07-11 [facility] [id number] Univers 09:15:00 09:15:00 WONDIFUL ity o f [facility] 2019-07-03 2019-07-03 Telephone [facility] 1.2.840.114 [id number] Univers 00:00:00 00:00:00 Wondiful A [place] 350.1.13.10 ity [place]2.[place] [phone] [address] 2019-07-01 2019-07-01 Telephone [facility] 1.2.840.114 [id number] Univers 00:00:00 00:00:00 Wondiful A Health 350.1.13.10 ity of [place] 4.2.7.2.686 [place]ilo as Professio [phone] [address] 2019-07-01 2019-07-01 Office Wilfredo, [facility] Encounter/ Legacy 00:00:00 00:00:00 Visit Mirella [id number] Katiuska De La Cruz [id number] [facility] 2019-07-01 2019-07-01 Office Wilfredo, [facility] Encounter/ Legacy 00:00:00 00:00:00 Visit Mirella [id number] Katiuska De La Cruz [id number] [facility] 2019-07-01 2019-07-01 Office WilfredoMirella willingham [facility] Encounter/ Legacy 00:00:00 00:00:00 Visit Shy Miller [id number] Communi [id number] Health 2019-06-25 2019-06-25 Office Wilfredo, [facility] Encounter/ Legacy 00:00:00 00:00:00 Visit Mirella [id number] Katiuska De La Cruz [id number] [facility] 2019-06-25 2019-06-25 Office Wilfredo, [facility] Encounter/ Legacy 00:00:00 00:00:00 Visit Mirella [id number] Katiuska De La Cruz [id number] [facility] 2019-06-25 2019-06-25 Office Wilfredo, [facility] Encounter/ Legacy 00:00:00 00:00:00 Visit Mirella [id number] Com natalee De La Cruz [id number] [facility] 2019-06-25 2019-06-25 Office Wilfredo, Mirella De La Cruz [facility] Encounter/ Legacy 00:00:00 00:00:00 Visit KedarFlorinajyotsna [id number] [address] [place] [address] 090884 [facility] 2019-05-14 2019-05-14 [facility] 1.2.840.114 [id number] Univers 00:00:00 00:00:00 Wondiful A Health 350.1.13.10 ity of [place] 4.2.7.2.686 [place]ilo as Professio [phone] [address] 2019-04-05 2019-04-05 Outpatient R JOCE [facility] [id number] Univers 13:15:00 14:32:32 WONDIFUL ity o f [facility] 2019-04-05 2019-04-05 Office [facility] 1.2.840.114 [id number] Univers 13:11:19 14:32:32 Visit Wondiful A Health 350.1.13.10 ity of [place] 4.2.7.2.686 [place] as Professio [phone] [facility] 044 [facility] 2019-04-04 2019-04-04 Telephone [facility] [id number] Univers 00:00:00 00:00:00 Daniel [place] 350.1.13.10 [place]y of [place]2.[place] Profess[place] [phone] N[place] dical nal 059 [facility] 2019-04-01 2019-04-01 Care Taker 2, Adc Lab [facility] 1.2.840.114 [id number] Univers 11:11:10 11:26:10 Visit Daniel Pérez 350.1.13.10 [place]y of [place]2.[place] [phone] Nc dical nal 353 [facility] 2019-04-01 2019-04-01 Outpatient R BETO [facility] [id number] Univers 11:15:00 11:15:00 DANIEL mitchell [facility] 2019-04-01 2019-04-01 [facility] 1.2.840.114 [id number] Univers 09:49:17 11:01:30 Visit Daniel Harris 350.1.13.10 ity of [place]7.2.[place] [phone] Nc dical nal 059 [facility] 2019-04-01 2019-04-01 Orders Doctor LILLIANA 1.2.840.114 [id number] Univers 00:00:00 00:00:00 Only Unassigned, MACKENZIE 350.1.13.10 ity of [place] [facility] 4.2.7.2.686 Kilo as [phone] [address] 2018-08-03 2018-08-03 Outpatient R JOCE [facility] [id number] Univers 12:45:00 12:45:00 WONDIGINGER mitchell [facility] Results Test Description Test Time Test Comments Results Result Comments Source CBC WITH DIFF 2022-03-12 00:09:18 Test Item Value Reference Range Interpretation Comme nts WBC (test code = 6690-2) See_Comment [A utomated message] The system which ge nerated this result transmit kendrick reference range: 4.30 - 1 1.10 10*3/?L. The reference r nanci was not used to interpr et this result as normal/abnor mal. RBC (test code = 789-8) See_Comment [Au tomated message] The system which ge nerated this result transmit kendrick reference range: 3.93 - 5 .25 10*6/?L. The reference r nanci was not used to interpr et this result as normal/abnor mal. HGB (test code = 718-7) 11.2 g/dL 11.6-15.0 L HCT (test code = 4544-3) 36.2 % 35.7-45.2 MCV (test code = 787-2) 81.9 fL 80.6-95.5 MCH (test code = 785-6) 25.3 pg 25.9-32.8 L MCHC (test code = 786-4) 30.9 g/dL 31.6-35.1 L RDW-SD (test code = 70760-2) 45.1 fL 39.0-49.9 RDW-CV (test code = 788-0) 15.3 % 12.0-15.5 PLT (test code = 777-3) See_Comment [Au tomated message] The system which ge nerated this result transmit kendrick reference range: 166 - 35 8 10*3/?L. The reference range was not used to interpret th is result as normal/abnormal . MPV (test code = 05280-4) 11.4 fL 9.5-12.9 NRBC/100 WBC (test code = See_Comment [ Automated message] The [id number]) system which ge nerated this result transmit kendrick reference range: 0.0 - 10 .0 /100 WBCs. The reference r nanci was not used to interpr et this result as normal/abnor mal. NRBC x10^3 (test code = See_Comment [Au tomated message] The [id number]) system which [employer] nerated this result transmit kendrick reference range: 10*3/?L. The reference range was not u sed to interpret this result as normal/abnormal . GRAN MAT (NEUT) % (test code 57.0 % = 770-8) IMM GRAN % (test code = 0.30 % [id number]) LYMPH % (test code = 736-9) 32.1 % MONO % (test code = 5905-5) 7.8 % EOS % (test code = 713-8) 2.5 % BASO % (test code = 706-2) 0.3 % GRAN MAT x10^3(ANC) (test 4.26 10*3/uL 1.88-7.09 code = 2416546684) IMM GRAN x10^3 (test code = 0.00-0.06 0603271391) LYMPH x10^3 (test code = 2.40 10*3/uL 1.32-3.29 731-0) MONO x10^3 (test code = 0.58 10*3/uL 0.33-0.92 742-7) EOS x10^3 (test code = 0.19 10*3/uL 0.03-0.39 711-2) BASO x10^3 (test code = 0.01-0.07 704-7) Lab Interpretation (test Abnormal code = 43523-3) [facility] [id number] 09:29:42 Test Item Value Reference Range Interpretation Comments THYROID STIMULATING See_Comment Normal TSH level HORMONE (test code = [place] [address]-0) clinically stab le patient without hypothalamic-pi tuitary-th yroid axis diso rders and no apparent thy roid dysfunction. No reflex testing require d. Unless Otherwise Indic ated, All Testing Perform ed At: [facility], [address] [facility], [place] [address] Laboratory Dire ctor: Breonna Ball CLIA Number [id number] Cap Accreditation [place] o. 50072-06 [Autom ated message] The sy stem which generated this result transmitted ref erence range: 0.400 - 4.100 UIU/ML. The ref erence range was not u sed to interpret this result as normal/abnormal . [facility] [id number] 08:36:24 Test Item Value Reference Range Interpretation [...] Otherwis e Indicated, All Testing Performed At: [facility], [address] [facility], [place] [address] [facility] Director: Tani Vazquez M.D. CLIA Number [id number] Cap Accreditation [place] o. 96576-88 Lab Interpretation Abnormal (test code = 32553-8) [facility]PRE[facility] METABOLIC [id number] 08:11:36 Test Item Value Reference Range Interpretation Comments GLUCOSE (test code = See_Comment H [Autom ated message] 2345-7) The system [employer] generated this result transmitted ref erence range: 70 - 99 MG/DL. The reference r nanci was not used to interpret this result as normal/abnor mal. BLOOD UREA NITROGEN See_Comment [Automa kendrick message] (test code = 3091-6) The [facility] tem which generated this result transmitted ref erence range: 8 - 23 M G/DL. The reference r nanci was not used to interpret this result as normal/abnor mal. CREATININE (test code = See_Comment L [Au tomated message] 2160-0) The system [employer] generated this result transmitted ref erence range: 0.60 - 1 .30 MG/DL. The refe rence range was not u sed to interpret this result as normal/abnor mal. EGFR (test code = See_Comment [Automate d message] 13524-2) The system [employer] generated this result transmitted ref erence range: >60 ML/MIN/1.73. Th e reference range was not used to int erpret this result as normal/abnormal . BUN/CREAT RATIO (test See_Comment [Auto mated message] code = 3097-3) The system [facility] generated this result transmitted ref erence range: 6 - 28 R ATIO. The reference r nanci was not used to interpret this result as normal/abnor mal. SODIUM (test code = See_Comment [Automa kendrick message] 0971-2) The system [employer] generated this result transmitted ref erence range: 133 - 14 6 MEQ/L. The refe rence range was not u sed to interpret this result as normal/abnor mal. POTASSIUM (test code = See_Comment [Aut omated message] 1373-3) The system [employer] generated this result transmitted ref erence range: 3.5 - 5. 4 MEQ/L. The refe rence range was not u sed to interpret this result as normal/abnor mal. CHLORIDE (test code = See_Comment [Auto mated message] 2074-0) The system [facility] [employer] generated this result transmitted ref erence range: 95 - 107 MEQ/L. The reference r nanci was not used to interpret this result as normal/abnor mal. CO2 (test code = See_Comment [Automated message] 1962-8) The system [facility] generated this result transmitted ref erence range: 19 - 31 MEQ/L. The reference r nanci was not used to interpret this result as normal/abnor mal. CALCIUM (test code = See_Comment [Autom ated message] 28999-4) The system [facility] generated this result transmitted ref erence range: 8.5 - 10 .5 MG/DL. The refe rence range was not u sed to interpret this result as normal/abnor mal. PROTEIN TOTAL (test See_Comment [Automa kendrick message] code = 2885-2) The system [employer] generated this result transmitted ref erence range: 6.1 - 8. 3 G/DL. The reference r nanci was not used to interpret this result as normal/abnor mal. ALBUMIN (test code = See_Comment [Autom ated message] 75855-7) The system [employer] generated this result transmitted ref erence range: 3.5 - 5. 2 G/DL. The reference r nanci was not used to interpret this result as normal/abnor mal. GLOBULINS, SERUM, TOTAL See_Comment [Au tomated message] (test code = 59539-4) The sy stem which generated this result transmitted ref erence range: 1.9 - 3. 7 G/DL. The reference r nanci was not used to interpret this result as normal/abnor mal. A/G RATIO (test code = See_Comment [Aut omated message] 1759-0) The system [facility] [employer] generated this result transmitted ref erence range: 1.0 - 2. 6 RATIO. The refe rence range was not u sed to interpret this result as normal/abnor mal. BILIRUBIN TOTAL (test See_Comment [Auto mated message] code = 1975-2) The system [employer] generated this result transmitted ref erence range: <=1.2 MG /DL. The reference r nanci was not used to interpret this result as normal/abnor mal. ALKALINE PHOSPHATASE 119 U/L 40-142 (test code = 6768-6) AST (SGOT) (test code = 21 U/L 9-40 1920-8) ALT (SGPT) (test code = 17 U/L 5-40 Unl ess Otherwise 1744-2) Indicated, All Testing Performed At: [facility], [address] [place] [address] Laborator y Director: Tani Vazquez M.D. CLIA Number [id number] Cap Accreditation N o. [id number] Lab Interpretation Abnormal (test code = 39422-1) [facility] W/AUTO DIFF WITH [id number] 07:12:50 Test Item Value Reference Range Interpretation Comments WHITE BLOOD CELL COUNT See_Comment [Aut omated message] (test code = 00072-8) The sy stem which generated this result transmitted ref erence range: 3.5 - 11 .0 K/UL. The refer ence range was not u sed to interpret this result as normal/abnor mal. RED BLOOD CELL COUNT See_Comment [Autom ated message] (test code = 81033-1) The sy stem which generated this result transmitted ref erence range: 3.80 - 5 .40 M/UL. The refer ence range was not u sed to interpret this result as normal/abnor mal. HEMOGLOBIN (test code = See_Comment [Au tomated message] 718-7) The system [facility] h generated this result transmitted ref erence range: 11.5 - 1 5.5 G/DL. The refer ence range was not u sed to interpret this result as normal/abnor mal. HEMATOCRIT (test code = 38.5 % 34.0-45.0 07818-4) MEAN CORPUSCULAR VOLUME 84.4 fL 80.0-99.0 (test code = 14978-4) MEAN CORPUSCULAR 28.1 PG 25.0-33.0 HEMOGLOBIN (test code = 62296-3) MEAN CORPUSCULAR See_Comment [Automated message] HEMOGLOBIN CONC (test The sy stem which code = 21347-0) generated th is result transmitted ref erence range: 31.0 - 3 6.0 G/DL. The refer ence range was not u sed to interpret this result as normal/abnor mal. RED CELL DISTRIBUTION 13.0 % 11.5-15.0 WIDTH (test code = 38061-3) NEUTROPHILS % (test code 60.3 % = 14194-8) LYMPHOCYTES % (test code 29.6 % = 64745-8) MONOCYTES % (test code = 6.9 % 84328-4) EOSINOPHILS % (test code 2.7 % = 36918-7) BASOPHILS % (test code = 0.4 % 14750-6) IMMATURE GRANULOCYTES 0.1 % (test code = 71345-1) NUCLEATED RBC'S See_Comment Unless Othe rwise MYELOPEROX STAIN (test Indic ated, All Testing code = 71337-2) Performed At : [facility], [address] [place] [address] Laborator y Director: Tani Vazquez M.D. IA Number [id number] Cap Accreditation N o. 49248-22 [Autom ated message] The sy stem which generated this result transmit kendrick reference range : 0.00 - 0.11 K/UL. Th e reference range was not used to int erpret this result as normal/abnormal . PLATELET COUNT (test See_Comment [Autom ated message] code = 79368-2) The system [facility] generated this result transmitted ref erence range: 130 - 40 0 K/UL. The reference r nanci was not used to interpret this result as normal/abnor mal. NEUTROPHILS ABSOLUTE See_Comment [Autom ated message] COUNT (test code = The syste m which 67849-6) generated this result transmitted ref erence range: 1.50 - 7 .50 K/UL. The refer ence range was not u sed to interpret this result as normal/abnor mal. LYMPHOCYTES ABSOLUTE See_Comment [Autom ated message] COUNT (test code = The syste m which 71676-5) generated this result transmitted ref erence range: 1.00 - 4 .00 K/UL. The refer ence range was not u sed to interpret this result as normal/abnor mal. MONOCYTES ABSOLUTE COUNT See_Comment [A utomated message] (test code = 93798-0) The sy stem which generated this result transmitted ref erence range: 0.20 - 1 .00 K/UL. The refer ence range was not u sed to interpret this result as normal/abnor mal. BASOPHILS ABSOLUTE COUNT See_Comment [A utomated message] (test code = 45591-9) The sy stem which generated this result [...] to interpret this result as normal/abnor mal. [facility] URINALYSIS [id number] 00:00:00 Test Item Value Reference Range Interpretation Comments COLOR UA (test code = 5778-6) Yellow YELLOW/STRAW CLARITY UA (test code = 07251-4) Clear CLEAR GLUCOSE UA (test code = 5792-7) Negative NEGATIVE BILIRUBIN UA (test code = 5770-3) Negative NEGATIVE KETONES UA (test code = 61034-9) Negative NEGATIVE SPECIFIC GRAVITY UA (test code [...] NEGATIVE REDUCING SUBSTANCES URINE (test code = 95303-5) [facility] URINALYSIS [id number] 00:00:00 Test Item Value Reference Range Interpretation Comments COLOR UA (test code = 5778-6) Yellow YELLOW/STRAW CLARITY UA (test code = Clear CLEAR 20215-1) GLUCOSE UA (test code = Negative NEGATIVE 5792-7) BILIRUBIN UA (test code = Negative NEGATIVE 5770-3) KETONES UA (test code = Negative NEGATIVE 22463-4) SPECIFIC GRAVITY UA (test 1.005-1.035 A code [...] REDUCING SUBSTANCES URINE NEGATIVE (test code = 59971-4) Lab Interpretation (test code Abnormal = 30712-0) [facility] [id number] 00:00:00 Test Item Value Reference Range Interpretation Comments COLOR UA (test code = 5778-6) Light Yellow YELLOW/STRAW CLARITY UA (test code = Cloudy CLEAR 73772-5) GLUCOSE UA (test code = Negative NEGATIVE 5792-7) BILIRUBIN UA (test code = Negative NEGATIVE 5770-3) KETONES UA (test code = Negative NEGATIVE 14113-4) SPECIFIC GRAVITY UA (test 1.005-1.035 code = [...] 5802-4) REDUCING SUBSTANCES URINE (test code = 31179-8) [facility] [id number] 11:28:02 Test Item Value Reference Range Interpretation Comments MAGNESIUM (test code = See_Comment Unle ss Otherwise 24599-0) Indicated, All Testing Performed At: C linical Pathology [facility], [address] [place] [address] Laborator y Director: Tani Vazquez M.D. CLIA Number [id number] Cap Accreditation N o. 26235-17 [Autom ated message] The sy stem which generated this result transmitted ref erence range: 1.6 - 2. 6 MG/DL. The reference r nanci was not used to int erpret this result as normal/abnormal . [facility] METABOLIC [id number] 08:53:12 Test Item Value Reference Range Interpretation Comments GLUCOSE (test code = See_Comment H [Autom ated message] 2345-7) The system [employer] generated this result transmitted ref erence range: 70 - 99 MG/DL. The reference r nanci was not used to interpret this result as normal/abnor mal. BLOOD UREA NITROGEN See_Comment [Automa kendrick message] (test code = 3091-6) The [employer] tem which generated this result transmitted ref erence range: 8 - 23 M G/DL. The reference r nanci was not used to interpret this result as normal/abnor mal. CREATININE (test code = See_Comment L [Au tomated message] 2160-0) The system [employer] generated this result transmitted ref erence range: 0.60 - 1 .30 MG/DL. The refe rence range was not u sed to interpret this result as normal/abnor mal. EGFR AA (test code = See_Comment [Autom ated message] 65134-8) The system [employer] generated this result transmitted ref erence range: >60 ML/MIN/1.73. Th e reference range was not used to int erpret this result as normal/abnormal . EGFR (test code = See_Comment [Automate d message] 12331-4) The system [employer] generated this result transmitted ref erence range: >60 ML/MIN/1.73. Th e reference range was not used to int erpret this result as normal/abnormal . SODIUM (test code = See_Comment [Automa kendrick message] 2951-2) The system [employer] generated this result transmitted ref erence range: 133 - 14 6 MEQ/L. The refe rence range was not u sed to interpret this result as normal/abnor mal. POTASSIUM (test code = See_Comment [Aut omated message] 2823-3) The system [employer] generated this result transmitted ref erence range: 3.5 - 5. 4 MEQ/L. The refe rence range was not u sed to interpret this result as normal/abnor mal. CHLORIDE (test code = See_Comment [Auto mated message] ) The system [employer] generated this result transmitted ref erence range: 95 - 107 MEQ/L. The refe rence range was not u sed to interpret this result as normal/abnor mal. CO2 (test code = 1963-8) See_Comment [A utomated message] The system [employer] generated this result transmitted ref erence range: 19 - 31 MEQ/L. The reference r nanci was not used to interpret this result as normal/abnor mal. CALCIUM (test code = See_Comment Unless Otherwise 70124-3) Indicated, All Testing Perform ed At: [facility], [address] [place] [address] Laborator y Director: Tani Vazquez M.D. CLIA Number [id number] Cap Accreditation N o. 58566-06 [Autom ated message] The sy stem which generated this result transmit kendrick reference range : 8.5 - 10.5 MG/DL. T he reference range was not used to int erpret this result as normal/abnormal . Lab Interpretation (test Abnormal code = 08355-3) [facility] CampusURIC [id number] 08:53:12 Test Item Value Reference Range Interpretation Comments URIC ACID (test code See_Comment Unless Otherwise = 5906621) Indicated, All Testing Performed At: [facility], [address] [place] [address] Laborator y Director: Tani rogers M.D. CLIA Number [id number] Cap Accreditation N o. 63309-34 [Automated mess age] The system which ge nerated this result transmit kendrick reference range : 2.7 - 6.1 MG/DL. The refe rence range was not used to interpret this result as normal/abnormal . [facility] Memorial CampusFL, FLUORO, NON-SPECIFIC, UP TO 1 [id number] 09:44:00Reason for exam:->cystoFINAL REPORT A fluoroscopic unit was utilized for a procedure performed in the operating room. No interpretation was requested. Please refer to the operative report regarding findings. Please refer to PACS for patient radiation dose information. Signed: JR Elizabeth, Alla Mast Verified Date/Time: 07/14/2019 09:44:15 [place] Location: [facility] C013V Neuro [place] Room BLOOD [id number] 11:00:00 Test Item Value Reference Range Interpretation Comments CULTURE (BEAKER) (test No growth in 5 days code = 1095) BLOOD [id number] 11:00:00 Test Item Value Reference Range Interpretation Comments CULTURE (BEAKER) (test No growth in 5 days code = 1095) URINE [id number] 11:07:00 Test Item Value Reference Range Interpretation Comments CULTURE (BEAKER) (test code = 1095) No growth ANG, NEPHROSTOMY, PERC, EXTERNAL [id number] 11:00:00Reason for exam:- >request left PCN for left obstructing stone, feversFINAL REPORT Procedure: Percutaneous nephrostomy catheter placement. History: Left ureteric calculus with obstruction, infection. Double Spindle Shaper Operator: Bradford Matthew M.D. Wind Field Manager: Nargis mckeon M.D. Modality: Ultrasound and fluoroscopy. [...] anesthesia and dermatotomy, under real-time ultrasonographic guidance, f80-bczos Chiba needle was advanced into the calyx. After confirming the recovery of urine, a guidewire was advanced into the collecting system under fluoroscopic guidance. Contrast injection confirmed satisfactory position of the access system. Over the wire, following sequential dilatation of the tract, an 8.5 Egyptian nephrostomy catheter was placed, pigtail locked in the renal pelvis. Contrast injection confirmed satisfactory position of the nephrostomy catheter. The catheter was secured to skin with nonabsorbable suture and connected to a gravity drainage bag. An aseptic dressing was applied. Thepatient was transferred to the recovery area and discharged from the department in stable condition.Complications: None immediate. Findings:As above. Obstruction in the distal ureter was not seen. Thecalculus probably has passed on into the bladder. Impression:Successful ultrasound and fluoroscopicguided 8.5 Egyptian nephrostomy catheter placement left kidney via a posterior inferior calyx as described above. Further management dictated by the clinical scenario. The nephrostomy catheter(s) should be exchanged at the latest in three months. Thank you for the opportunity to assist in the care of your patient. Signed: Bradford Matthewjefferson [facility] Verified Date/Time: 07/10/2019 11:00:12 Reading Location:[address] Body Reading Room 11:00 AMBASIC METABOLIC [id number] 07:33:00 Test Item Value Reference Range Interpretation [...] 1092) DATA TO CALCULA TE ESTIMATED GFR. Cloud Automation Tester ID - MONIE [id number] 07:25:00 Test Item Value Reference Range Interpretation Comments MAGNESIUM (BEAKER) (test code = 2.2 mg/dL 1.6-2.6 627) Cloud Automation Tester ID - MONIE CHEPATIC FUNCTION [id number] 07:25:00 Test Item Value Reference Range Interpretation [...] (test code = 43 U/L 6-55 347) Cloud Automation Tester ID - MONIE CCBC W/PLT COUNT & AUTO [id number] 06:54:00 Test Item Value Reference Range Interpretation [...] (BEAKER) (test code = 2801) BASIC METABOLIC [id number] 05:38:00 Test Item Value Reference Range Interpretation [...] 1092) DATA TO CALCULA TE ESTIMATED GFR. Cloud Automation Tester ID - [id number] 05:24:00 Test Item Value Reference Range Interpretation Comments MAGNESIUM (BEAKER) (test code = 1.8 mg/dL 1.6-2.6 627) Cloud Automation Tester ID - LAHEPATIC FUNCTION [id number] 05:24:00 Test Item Value Reference Range Interpretation [...] (test code = 36 U/L 6-55 347) Cloud Automation Tester ID - LACBC W/PLT COUNT & AUTO [id number] 04:34:00 Test Item Value Reference Range Interpretation [...] (BEAKER) (test code = 2801) LACTIC ACID, [id number] 20:25:00 Test Item Value Reference Range Interpretation Comments LACTATE BLOOD VENOUS (2) (BEAKER) 0.69 mmol/L 0.50-2.20 (test code = 2872) Cloud Automation Tester ID - NTPRAD, CHEST, 1 VIEW, NON [id number] 16:24:00Reason for exam:->feverShould this be performed at the bedside?->YesFINAL REPORT CLINICAL HISTORY: fever TECHNIQUE: 1 view of the chest. COMPARISON: None IMPRESSION: There is possible retrocardiac left lower lobe consolidation, for which clinical correlation for pneumonia is requested. There is blunting of the left costophrenic angle. The heart isnot enlarged. Signed: Rich Rebolledo MDReport Verified Date/Time: 07/08/2019 16:24:52 Reading Location: [facility] C013V Neuro Reading Room HEMOGLOBIN [id number] 13:56:00 Test Item Value Reference Range Interpretation Comments HEMOGLOBIN A1C (BEAKER) (test code = 6.1 % 4.3-6.1 368) URINALYSIS W/ REFLEX URINE [id number] 13:15:00 Test Item Value Reference Range Interpretation [...] = 516) SOURCE(BEAKER) (test code = 2795) Cloud Automation Tester ID - [auto]Cloud Automation Tester ID - techRESPIRATORY PANEL [id number] 12:14:00 Test Item Value Reference Range Interpretation [...] - [facility] using the CreditShopArray Respiratory Panel. It is FDA cleared and has been verified and approved by the [facility] for clinical use on nasopharyngeal swab specimens.The performance of the FilmArrayRP has not been established in individuals who received influenza vaccine. Recent administration of a nasal influenza vaccine may cause false positive results for Influenza A and/orInfluenza B.SARS-COV2/RT-PCR ([facility])2019-07-08 11:26:00 Test Item Value Reference Range Interpretation Comments SARS-COV2/RT-PCR (test Not Detected Not Detected, Negative code = 4328640) SARS-COV-2 PERFORMING LAB [facility] (test code = 7499648) Negative results do not preclude SARS-CoV-2 infection [...] of the Act.Fact Sheet for Healthcare Pro viders:https://www.SafedoX.FetchBack/Documents/Xpert%20Xpress%20SARS%20CoV-2/Fact%20Sh eets/3023802%93TONV-ENG-3%20HEALTHCARE%20PROVIDERS%20FACT%20SHEET.pdfFact Sheet for Healthcare Patients:https://www.[employer].FetchBack/Documents/Xpert%20Xpress%20SARS%20CoV-2/Fact%20Sheets/3023801%20SARS-COV -2%20PATIENT%20FACT%20SHEET.pdfPerforming Laboratory:[facility], [place] [address]WDYUB METABOLIC [id number] 10:06:00 Test Item Value Reference Range Interpretation [...] 1092) DATA TO CALCULA TE ESTIMATED GFR. Cloud Automation Tester ID - [id number] 10:05:00 Test Item Value Reference Range Interpretation Comments MAGNESIUM (BEAKER) (test code = 2.0 mg/dL 1.6-2.6 627) Cloud Automation Tester ID - NTPHEPATIC FUNCTION [id number] 10:05:00 Test Item Value Reference Range Interpretation [...] (test code = 30 U/L 6-55 347) Cloud Automation Tester ID - [id number] 09:53:00 Test Item Value Reference Range Interpretation [...] 2.5-3.5 for patients wiht mechanical heart valves.PROTHROMBIN TIME/[id number] 09:51:00 Test Item Value Reference Range Interpretation [...] for patients wiht mechanical heart valves.LACTIC ACID, [id number] 09:50:00 Test Item Value Reference Range Interpretation Comments LACTATE BLOOD VENOUS (2) (BEAKER) 2.87 mmol/L 0.50-2.20 H (test code = 2872) Cloud Automation Tester ID - NTPCBC W/PLT COUNT & AUTO [id number] 09:41:00 Test Item Value Reference Range Interpretation [...] % 0-1 PERCENT (BEAKER) (test code = 2031)
[2022-03-11 20:42] LABS: Absolute Lymphocytes (CBC) 1.8 K/uL (0.7-4.9); Hematocrit 36.8 % (36.0-45.0); Lymphocytes % 24.4 % (15.3-44.8); MCV 78.5 fL (80-100); MPV 7.7 fL (7.6-11.3); RBC Red Blood Cell Count 4.69 M/uL (3.86-4.86)
[2022-03-11 20:58] LABS: Potassium 3.8 mmol/L (3.5-5.1); Troponin High Sensitivity 41.5 pg/mL (<58.9)
--- NOTE | 2022-03-11 21:42 | RAD REPORT ---
EXAM DESCRIPTION: RAD - Chest Single View - 03/11/2022 9:28 pm CLINICAL HISTORY: near syncope COMPARISON: Chest Single View dated 02/15/2022; Chest Single View dated 10/19/2021; Chest Single View da kendrick 10/10/2021; Chest Single View dated 08/13/2021 FINDINGS: Lines: None. Lungs: Mild prominence of the pulmonary interstitium. No evidence of alveolar edema or consolidative airspace disease. Pleural: No significant pleural effusions or pneumothorax. Cardiac: Cardiomegaly . Mediastinum: Within normal limits. Bones: No acute fractures. Other: None IMPRESSION: Question pulmonary vascular congestion. No consolidative airspace disease.
--- NOTE | 2022-03-11 23:15 | EDPHYS ---
Physician Documentation [facility] Name: Erika Jacobson Age: 86 yrs Sex: Female : 1935 Arrival Date: 03/11/2022 Time: 20:02 Bed 6 Private MD: ED Physician Gael Peres HPI: 03/11 20:20 This 86 yrs old Female presents to ER via EMS with complaints of Near syncope. ms3 20:20 86-year-old female with past medical history of asthma, CVA, hyperlipidemia, ms3 hypertension presents via [facility] for near syncope. Patient states she was eating and got up to go the bathroom and while walking nearly passed out. Patient's son states to EMS that he was able to get her and take her and set her on the couch. Patient endorses mild chest pain this morning that lasted for about 5 minutes. Patient denies pain at this time. Patient denies alleviating or inciting factors.. Historical: - Allergies: 20:22 No Known Allergies; vc1 - Home Meds: 20:18 aspirin 81 mg Oral chew 1 tab once daily [Active]; atorvastatin 40 mg Oral tab 1 tab vc1 once daily [Active]; carvedilol Oral [Active]; Lasix Oral [Active]; losartan 100 mg Oral tab 1 tab once daily [Active]; - PMHx: 20:18 Asthma; CVA; Hyperlipidemia; Hypertension; vc1 - PSHx: 20:18 choleycestectomy; hysterectomy; kidney stones; vc1 - Social history:: Smoking status: Patient denies any tobacco usage or history of. ROS: 20:20 Constitutional: Negative for fever, and chills. Neck: Negative for injury, pain, and ms3 swelling. 20:20 Back: Negative for injury and pain, MS/Extremity: Negative for injury and deformity, Skin: Negative for injury, rash, and discoloration. 20:20 Cardiovascular: Positive for chest pain. 20:20 All other systems are negative. Exam: 20:20 Constitutional: This is a well developed, well nourished patient who is awake, alert, ms3 and in no acute distress. Head/Face: Normocephalic, atraumatic. Neck: Trachea midline, no cervical lymphadenopathy. Supple, full range of motion without nuchal rigidity, or vertebral point tenderness. No Meningismus. Chest/axilla: Normal chest wall appearance and motion. Nontender with no deformity. Cardiovascular: Regular rate and rhythm with a normal S1 and S2. No gallops, murmurs, or rubs. Normal PMI, no JVD. No pulse deficits. Respiratory: Lungs have equal breath sounds bilaterally, clear to auscultation and percussion. No rales, rhonchi or wheezes noted. No increased work of breathing, no retractions or nasal flaring. Abdomen/GI: Soft, non-tender, with normal bowel sounds. No distension or tympany. No guarding or rebound. No evidence of tenderness throughout. Back: No spinal tenderness. No costovertebral tenderness. Full range of motion. Skin: Warm, dry with normal turgor. Normal color with no rashes, no lesions, and no evidence of cellulitis. MS/ Extremity: Pulses equal, no cyanosis. Neurovascular intact. Full, normal range of motion. Vital Signs: 20:16 BP 140 / 56; Pulse 90; Resp 15; Temp 98.1(O); Pulse Ox 98% ; Weight 74.84 kg; Pain 0/10;vc1 22:50 BP 137 / 48; Pulse 67; Resp 11; Pulse Ox 98% on R/A; jb4 23:22 BP 116 / 58; Pulse 64; Resp 18; Pulse Ox 96% on R/A; jb4 MDM: 20:04 Patient medically screened. ms3 20:14 Data reviewed: vital signs, nurses notes, lab test result(s), EKG, radiologic studies, ms3 plain films, and as a result, I will discharge patient. Consideration of Admission/Observation Escalation of care including admission/observation considered. Observation considered; however, patient's telemetry remains normal sinus rhythm, EKG is unchanged from September 2021, troponin is downtrending.. Independent interpretation of the following test(s) in the Emergency Department EKG: See my EKG interpretation above phototypesetting equipment monitor: rate is 65 beats/min, Rhythm is normal sinus rhythm, regular, with no ectopy, Interpretation: normal rate, normal rhythm. Historians other than the Patient: EMS: [facility]. External Records Reviewed: Previous EKG reviewed. Care significantly affected by the following chronic conditions: Hypertension, Hyperlipidemia. Counseling: I had a detailed discussion with the patient and/or guardian regarding: the historical points, exam findings, and any diagnostic results supporting the discharge/admit diagnosis, lab results, radiology results, the need for outpatient follow up, to return to the emergency department if symptoms worsen or persist or if there are any questions or concerns that arise at home. Special discussion: I discussed with the patient/guardian in detail that at this point there is no indication for admission to the hospital. It is understood, however, that if the symptoms persist or worsen the patient needs to return immediately for re-evaluation. ED course: Discussed labs, EKG, chest x-ray with patient and her son. Patient to follow-up with her primary care physician in 2 to 3 days. Patient and her son understand and agree with plan. All questions were answered. Return precautions discussed to include fevers, chills, syncope, worsening symptoms, or any other concerns.. 20:20 Differential Diagnosis Arrythmia vs ACS vs abnormal ekg. 03/11 20:09 Order name: Basic Metabolic Panel; Complete Time: 21:12 03/11 20:09 Order name: CBC with Diff; Complete Time: 21:12 03/11 20:09 Order name: Troponin HS; Complete Time: 21:12 03/11 20:09 Order name: XRAY Chest (1 view); Complete Time: 21:45 03/11 20:09 Order name: EKG; Complete Time: 20:10 03/11 22:18 Order name: Troponin High Sensitivity; Complete Time: 22:50 4 03/11 20:09 Order name: Cardiac monitoring; Complete Time: 20:15 03/11 20:09 Order name: EKG - Nurse/Tech; Complete Time: 20:15 03/11 20:09 Order name: IV Saline Lock; Complete Time: 20:57 03/11 20:09 Order name: Labs collected and sent; Complete Time: 20:57 03/11 20:09 Order name: O2 Per Protocol; Complete Time: 20:16 03/11 20:09 Order name: O2 Sat Monitoring; Complete Time: 20:16 03/11 21:13 Order name: Repeat Cardiac Enzymes at: Repeat Troponin 2 hours after original; Complete ms3 Time: 22:23 EC:14 Rate is 80 beats/min. Rhythm is regular. Left axis deviation noted. AK interval is ms3 normal. QRS interval is normal. Clinical impression: NSR w/ Non-specific ST/T Changes. No change from previous ECG on October 10, 2021. Interpreted by me. Reviewed by me. Administered Medications: No medications were administered Disposition Summary: 03/11/22 23:14 Discharge Ordered Location: Home ms3 Condition: Stable ms3 Diagnosis - Syncope Near ms3 - Essential (primary) hypertension ms3 Followup: ms3 - With: Judson Madera DO - When: 2 - 3 days - Reason: Recheck today's complaints Discharge Instructions: - Discharge Summary Sheet ms3 - Hypertension, Adult ms3 - Near-Syncope ms3 Forms: - Medication Reconciliation Form ms3 - Thank You Letter ms3 - Antibiotic Education ms3 - Prescription Opioid Use ms3 Signatures: Dispatcher [employer] EDMS Gael Peres DO DO ms3 Gayatri Duncan RN RN vc1 Corrections: (The following items were deleted from the chart) 23:18 20:14 Rate is 80 beats/min. Rhythm is regular. Left axis deviation noted. AK interval ms3 is normal. QRS interval is normal. Clinical impression: NSR w/ Non-specific ST/T Changes. Interpreted by me. Reviewed by me. ms3
--- NOTE | 2022-03-11 23:15 | ER ---
Nurse's Notes [facility] Name: Erika Jacobson Age: 86 yrs Sex: Female : 1935 Arrival Date: 03/11/2022 Time: 20:02 Bed 6 Private MD: Diagnosis: Syncope Near;Essential (primary) hypertension Presentation: 03/11 20:16 Chief complaint: Patient states: "I was eating breakfast and I got up to go to the 1 bathroom and I passed out for about 3 minutes.". Coronavirus screen: Client denies travel out of the [place] in the last 14 days. At this time, the client does not indicate any symptoms associated with coronavirus-19. Ebola Screen: No symptoms or risks identified at this time. Initial Sepsis Screen: Does the patient meet any 2 criteria? HR > 90 bpm. No. Patient's initial sepsis screen is negative. Does the patient have a suspected source of infection? No. Patient's initial sepsis screen is negative. Risk Assessment: Do you want to hurt yourself or someone else? Patient reports no desire to harm self or others. Onset of symptoms was March 11, 2022. 20:16 Method Of Arrival: EMS: [facility] vc1 20:16 Acuity: ISHAN 3 vc1 Triage Assessment: 20:19 General: Appears in no apparent distress. comfortable, Behavior is calm, cooperative, vc1 appropriate for age. Pain: Denies pain. EENT: No deficits noted. Neuro: Level of Consciousness is awake, alert, obeys commands, Oriented to person, place, time, situation, Appropriate for age. Neuro: Reports a syncopal episode. Cardiovascular: Reports intermittent chest pain in the morning for approximately 5 minutes Patient's skin is warm and dry. Respiratory: Airway is patent Trachea midline Respiratory effort is even, unlabored, Respiratory pattern is regular, symmetrical. GI: No deficits noted. No signs and/or symptoms were reported involving the gastrointestinal system. : No deficits noted. No signs and/or symptoms were reported regarding the genitourinary system. Derm: No deficits noted. No signs and/or symptoms reported regarding the dermatologic system. Musculoskeletal: No deficits noted. No signs and/or symptoms reported regarding the musculoskeletal system. Historical: - Allergies: 20:22 No Known Allergies; vc1 - Home Meds: 20:18 aspirin 81 mg Oral chew 1 tab once daily [Active]; atorvastatin 40 mg Oral tab 1 tab vc1 once daily [Active]; carvedilol Oral [Active]; Lasix Oral [Active]; losartan 100 mg Oral tab 1 tab once daily [Active]; - PMHx: 20:18 Asthma; CVA; Hyperlipidemia; Hypertension; vc1 - PSHx: 20:18 choleycestectomy; hysterectomy; kidney stones; vc1 - Social history:: Smoking status: Patient denies any tobacco usage or history of. Screenin:21 Abuse screen: Denies threats or abuse. Nutritional screening: No deficits noted. vc1 Tuberculosis screening: No symptoms or risk factors identified. 20:30 [facility] ED Fall Risk Assessment (Adult) History of falling in the last 3 months, vc1 including since admission Yes- physiologic fall (2 pts) Confusion or Disorientation No (0 pts) Intoxicated or Sedated No (0 pts) Impaired Gait No (0 pts) Mobility Assist Device Used No (0 pt) Altered Elimination No (0 pt). Assessment: 21:00 Reassessment: Patient appears in no apparent distress at this time. Patient and/or jb4 family updated on plan of care and expected duration. Pain level reassessed. Patient is alert, oriented x 3, equal unlabored respirations, skin warm/dry/pink. 22:00 Reassessment: Patient appears in no apparent distress at this time. Patient and/or jb4 family updated on plan of care and expected duration. Pain level reassessed. Patient is alert, oriented x 3, equal unlabored respirations, skin warm/dry/pink. 22:57 Reassessment: Pt resting in bed with eyes closed, respirations are even and unlabored jb4 with no s/s of pain or distress noted. Vital Signs: 20:16 BP 140 / 56; Pulse 90; Resp 15; Temp 98.1(O); Pulse Ox 98% ; Weight 74.84 kg; Pain 0/10;vc1 22:50 BP 137 / 48; Pulse 67; Resp 11; Pulse Ox 98% on R/A; jb4 23:22 BP 116 / 58; Pulse 64; Resp 18; Pulse Ox 96% on R/A; jb4 ED Course: 20:02 Patient arrived in ED. vc1 20:04 Gael Peres DO is Attending Physician. ms3 20:16 Basic Metabolic Panel Sent. jb4 20:18 Triage completed. vc1 20:21 Arm band placed on right wrist. vc1 20:21 Patient has correct armband on for positive identification. Placed in gown. Bed in low vc1 position. Call light in reach. Side rails up X2. Client placed on continuous cardiac and pulse oximetry monitoring. NIBP monitoring applied. 21:05 Zach Rosenthal, RN is Primary Nurse. jb4 21:30 XRAY Chest (1 view) In Process Unspecified. EDMS 22:25 Troponin High Sensitivity Sent. jb4 23:14 Judson Madera DO is Referral Physician. ms3 23:45 No provider procedures requiring assistance completed. IV discontinued, intact, vc1 bleeding controlled, No redness/swelling at site. Pressure dressing applied. Administered Medications: No medications were administered Medication: 20:21 VIS not applicable for this client. vc1 Outcome: 23:14 Discharge ordered by MD. ms3 23:46 Discharged to home via wheelchair, with family. vc1 23:46 Condition: good 23:46 Discharge instructions given to family, Instructed on discharge instructions, follow up and referral plans. Demonstrated understanding of instructions, follow-up care. 23:46 Patient left the ED. vc1 Signatures: Dispatcher [employer] EDMI Zach Rosenthal, RN RN jb Gael Peres DO DO ms3 Gayatri Duncan RN RN vc1
[2022-03-12 01:02] VITALS: TEMP 98.1
[2022-03-12 01:05] VITALS: BP 116/58; O2SAT 96
== END 2022-03-11 23:46 | disposition home or self-care (01) ==
LOC: ER 19:37
DX: R55 Syncope and collapse (principal); I10 Essential (primary) hypertension; E78.5 Hyperlipidemia, unspecified; Z86.73 Personal history of transient ischemic attack (TIA), and cerebral infarction without residual deficits; Z79.82 Long term (current) use of aspirin
CPT/HCPCS: 36415; 71045; 80048; 84484; 85025; 93005; 99283

== ENCOUNTER 2022-05-08 06:29 | Observation (INO) | payer OTHER ==
--- OUTSIDE RECORDS SUMMARY | 2022-05-08 06:42 | XMS REPORT | Continuity of Care Document ---
:1935 Author Organization [facility] t Address [address] [place] [address] Care Team Providers Name Role Phone Wu Mae MD Primary Care Physician LILIANA LI Attending Clinician Unavailable WON MATT Attending Clinician Unavailable WON MATT Attending Clinician Unavailable Angela Cunningham MD Attending Clinician Doctor Unassigned, [place] Attending Clinician Unavailable Won Matt MD Attending Clinician Nurse, Luice Neurology Attending Clinician Unavailable Unknown, Attending Attending Clinician Unavailable Emma Peñaloza MD Attending Clinician Thom Rosales Attending Clinician Unavailable Araseli Mosqueda Attending Clinician Tamela Borja Attending Clinician TAMELA LUCIA Attending Clinician Unavailable CHARY DONALD Attending Clinician Unavailable Chary Infante Attending Clinician DANIEL PÉREZ Attending Clinician Unavailable ITALIA PRESTON Attending Clinician Unavailable Keerthi Cuenca MD Attending Clinician Bib MURGUIA, Ree Attending Clinician Only, Ang Db Test Attending Clinician Unavailable Rambo CAUSTIC CRESYLATE SHIFT SUPERINTENDENT, Tera Attending Clinician TERA RICKS Attending Clinician Unavailable KALYN PARADA Attending Clinician Unavailable KEERTHI CUENCA Attending Clinician Unavailable Lyla CAUSTIC CRESYLATE SHIFT SUPERINTENDENT, Amaya Attending Clinician Randal MURGUIA, Gerardo Attending Clinician Cristobal PALAFOX, Pamela Roman Attending Clinician Unavailable Joce MURGUIA, Austin Goyal Attending Clinician AUSTIN HOBSON Attending Clinician Unavailable JESSICA ERIC Attending Clinician Unavailable AMAYA ARTIA Attending Clinician Unavailable Jessica Alvarez Attending Clinician TERESITA, SENDBEKAH K.H. Attending Clinician Unavailable Teresita MURGUIA, Sendbekah [...] Attending Clinician Unavailable Mirella Villalobos Attending Clinician [phone] Shy Miller Attending Clinician Unavailable 2, [facility] Attending Clinician Unavailable LILIANA LI Admitting Clinician Unavailable WON MATT Admitting Clinician Unavailable AUSTIN HOBSON Admitting Clinician Unavailable ADRIANA HARTMANN Admitting Clinician Unavailable Payers Payer Name Policy Type Policy Number Effective Date Expiration Date S hollis AARP/MEDICARE [id number] 2019 COMPLETE 00:00:00 WELLMED/AARP [id number] 2019 MEDICARE 00:00:00 ADVANTAGE MEDICAID OF [id number] 2017 [place] 00:00:[id number] [facility] [id number] [facility] [id number] 2019 2020 Located within [facility] - 00:00:00 00:00:00 Community MEDICARE [facility] [...] Medical Branch Uses Uses Disease Active Univers Guyanese as Guyanese as 5-28 it y of primary primary [...] impairment impairment 9-25 it y of 00:00: [place] [facility] Hair loss Hair loss Disease [...] both 7-20 ity of feet feet 00:00: [place] [facility] Abdominal Abdominal Disease Active [facility] Hypertensi Hypertensi Disease Active [facility] Ureteropel Ureteropel Disease Active [facility] bessie bessie 5-25 [facility] junction junction 00:00: Medica l (UPJ) (UPJ) 00 Center obstructio obstructio n, left n, left Sepsis Sepsis Disease Recurre [facility] Bilateral Bilateral Disease Active 2018-02 Uni vers foot pain foot pain 1-26 ity of 00:00: [place] [facility] Kidney Kidney Disease Active 2017-02 Univers stone stone 0-15 ity of 00:00: [place] [facility] Abnormal Abnormal Disease Active 2017-02 Overview: Un briana liver liver 0-15 Formattin ity of ultrasound ultrasound 00:00: g of this 00 note Medical might be Branch different from the original. 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 0-05 it y of 2 diabetes 2 [place] mellitus mellitus 00 Medica l Branch Essential Essential Disease Active 2016-02 Uni vers hypertensi hypertensi 0-02 it y of on on 00:00: [place] [address] Medical Branch HLD HLD Disease Active 2016-02 Univers (hyperlipi (hyperlipi 0-02 it y of demia) demia) 00:00: [place] [address] Medical Branch History of History of Disease Active 2016-02 U nivers chest pain chest pain 0-02 it y of 00:00: [place] [address] Medical Branch Palpitatio Palpitatio Disease Active 2016-02 U nivers ns ns 0-02 ity of 00:00: [place] [address] Medical Branch Osteoporos Osteoporos Disease Active U nivers is is ity of [facility] Abnormal Abnormal Disease Active Unive rs EKG EKG ity of [facility] Asthma Asthma Disease Active [facility] of Medicin e History of History of Disease Active [facility] stroke stroke [place] with with of residual residual Medici n left-sided left-sided e weakness weakness No known No known Disease [facility] active active [place] problems problems of Medicin e Allergies, Adverse Reactions, Alerts Allergy Allergy Status Severity Reaction(s) Onset Inactive Treating Comm ents Source Name Type Date Date Clinician NO KNOWN Allergy Active [facility] NO KNOWN Drug Active Univers ALLERGIE Class ity of S [facility] Social History Social Habit Start Date Stop Date Quantity Comments Source History SDOH [facility] Alcohol Std Medical Cent[facility] r Drinks History SDOH [facility] Alcohol Binge Medical Marilyn ter History SDOH [facility] Alcohol Comment Medical C enter Exposure to 2022-03-29 2022-04-08 Not sure University of SARS-CoV-2 00:00:00 14:50:00 [facility] (event) [place] Tobacco use and 2021-08-27 2021-08-27 Smokeless tobacco Un iversity of exposure 00:00:00 00:00:00 non-user [facility] Alcohol intake 2019-07-12 2019-07-[address] [facility] es 00:00:00 00:00:00 non-drinker of Medical Ce nter alcohol (finding) History SDOH 2019-07-10 2019-07-[address] [facility] Alcohol Frequency 00:00:00 00:00:00 Medical Center Sex [birth year] At [birth year] MOISES Lafleur 00:00:00 00:00:00 [facility] Center Smoking Status Start Date Stop Date Source Never smoked tobacco [facility] Medications Ordered Filled Start Stop Current Ordering Indication Dosage Frequency Signature Comments Components Source Medication Medication Date Date Medication? Clinician (SIG) Name Name losartan 25 0 Yes [id number] 25mg Take 1 Univers mg tablet 3-13 tablet by ity o f 00:00: mouth 00 daily. Medical Branch losartan 25 2022-0 Yes [id number] 25mg Take 1 Univers mg tablet 3-13 tablet by ity o f 00:00: mouth 00 daily. Medical Branch cefUROXime 2022-0 Yes [id number] 250mg Take 1 Univers 250 mg 2-14 tablet by ity of tablet 00:00: mouth (two) Medical times Branch daily. cefUROXime 2022-0 Yes [id number] 250mg Take 1 Univers 250 mg 2-14 tablet by ity of tablet 00:00: mouth [place] (two) Medical times Branch daily. cefUROXime 2022-0 Yes [id number] 250mg Take 1 Univers 250 mg 2-14 tablet by ity of tablet 00:00: mouth (two) Medical times Branch daily. cefUROXime 2022-0 Yes [id number] 250mg Take 1 Univers 250 mg 2-14 tablet by ity of tablet 00:00: mouth 2 [place] (two) Medical times Branch daily. cefUROXime 2022-0 Yes [id number] 250mg Take 1 Univers 250 mg 2-14 tablet by ity of tablet 00:00: mouth [place] (two) Medical times Branch daily. cefUROXime 2022-0 Yes [id number] 250mg Take 1 Univers 250 mg 2-14 tablet by ity of tablet 00:00: mouth [place] (two) Medical times Branch daily. cefUROXime 2022-0 Yes [id number] 250mg Take 1 Univers 250 mg 2-14 tablet by ity of tablet 00:00: mouth 2 [place] (two) Medical times Branch daily. carvedilol 2022-0 2022- No 12.5mg Take 12.5 Art (COREG) 2-10 02-10 mg by [place] 12.5 MG 10:59: 00:00 mouth of tablet 05 :00 daily. Medicin e furosemide 2022-0 Yes 20mg Take 20 mg B aylor (LASIX) 20 2-10 by mouth Colle ge MG tablet 10:34: daily. of 03 Medicin e losartan 0 Yes 25mg Take 25 mg Power raul (COZAAR) 25 2-10 by mouth Kristine ege MG tablet 10:34: two times of 03 daily. Medicin e carvedilol 2022-0 Yes 6.25mg Take 6.25 Art (COREG) 2-10 mg by [place] 6.25 MG 10:34: mouth of tablet 03 daily. Medicin e famotidine 0 2022- Yes 20mg Take 1 [place] (PEPCID) 20 2-10 05-12 Tablet by Co llege MG tablet 00:00: 04:59 mouth two of 00 :00 times Medicin daily for e 90 days. cefdinir 2022-0 Yes [id number] 300mg Take 1 Un briana 300 mg 2-09 capsule by ity of capsule 00:00: mouth [place] 00 every 12 Medical (twelve) Branch hours. cefdinir 2022-0 Yes [id number] 300mg Take 1 Un bri[place] 300 mg 2-09 capsule by ity of capsule 00:00: mouth [place] 00 every 12 Medical (twelve) Branch hours. ferrous 2022-0 Yes [id number] 324mg Take 1 Un [place] sulfate 324 1-31 tablet by ity of mg (65 mg 00:00: mouth [place] iron) EC 00 daily with Medic al tablet breakfast. Branch ferrous 2022-0 Yes [id number] 324mg Take 1 Un [place]ana sulfate 324 1-31 tablet by ity of mg (65 mg 00:00: mouth [place] iron) EC 00 daily with Medic al tablet breakfast. Branch ferrous 2022-0 Yes [id number] 324mg Take 1 Un [place]ana sulfate 324 1-31 tablet by ity of mg (65 mg 00:00: mouth [place] iron) EC 00 daily with Medic al tablet breakfast. Branch ferrous 2022-0 Yes [id number] 324mg Take 1 Un briana sulfate 324 1-31 tablet by ity of mg (65 mg 00:00: mouth [place] iron) EC 00 daily with Medic al tablet breakfast. Branch ferrous 2022-0 Yes [id number] 324mg Take 1 Un [place] sulfate 324 1-31 tablet by ity of mg (65 mg 00:00: mouth [place] iron) EC 00 daily with Medic al tablet breakfast. Branch ferrous 3-0 Yes [id number] 324mg Take 1 Un briana sulfate 324 1-31 tablet by ity of mg (65 mg 00:00: mouth [place] iron) EC 00 daily with Medic al tablet breakfast. Branch ferrous 3-0 Yes [id number] 324mg Take 1 Un briana sulfate 324 1-31 tablet by ity of mg (65 mg 00:00: mouth [place] iron) EC 00 daily with Medic al tablet breakfast. Branch ferrous 3-0 Yes [id number] 324mg Take 1 Un briana sulfate 324 1-31 tablet by ity of mg (65 mg 00:00: mouth [place] iron) EC 00 daily with Medic al tablet breakfast. Branch ferrous 2022-0 Yes [id number] 324mg Take 1 Un briana sulfate 324 1-31 tablet by ity of mg (65 mg 00:00: mouth [place] iron) EC 00 daily with Medic al tablet breakfast. Branch ferrous 2022-0 Yes [id number] 324mg Take 1 Un briana sulfate 324 1-31 tablet by ity of mg (65 mg 00:00: mouth [place] iron) EC 00 daily with Medic al tablet breakfast. Branch ferrous 2022-0 Yes [id number] 324mg Take 1 Un briana sulfate 324 1-31 tablet by ity of mg (65 mg 00:00: mouth [place] iron) EC 00 daily with Medic al tablet breakfast. Branch losartan 50 2022-0 Yes [id number] 50mg Take 1 Univers mg tablet 1-27 tablet by ity o f 00:00: mouth [place] 00 daily. Medical Branch furosemide 3-0 Yes [id number] 20mg Take 1 U nivers 20 mg 1-27 tablet by ity of tablet 00:00: mouth [place] 00 daily. Medical Branch losartan 50 2022-0 Yes [id number] 50mg Take 1 Univers mg tablet 1-27 tablet by ity o f 00:00: mouth [place] 00 daily. Medical Branch furosemide 3-0 Yes [id number] 20mg Take 1 U nivers 20 mg 1-27 tablet by ity of tablet 00:00: mouth [place] 00 daily. Medical Branch losartan 50 2022-0 Yes [id number] 50mg Take 1 Univers mg tablet 1-27 tablet by ity o f 00:00: mouth [place] 00 daily. Medical Branch furosemide 2023-0 Yes [id number] 20mg Take 1 U nivers 20 mg 1-27 tablet by ity of tablet 00:00: mouth [place] 00 daily. Medical Branch losartan 50 2022-0 Yes [id number] 50mg Take 1 Univers mg tablet 1-27 tablet by ity o f 00:00: mouth [place] 00 daily. Medical Branch furosemide 2022-0 Yes [id number] 20mg Take 1 U nivers 20 mg 1-27 tablet by ity of tablet 00:00: mouth [place] 00 daily. Medical Branch losartan 50 2022-0 Yes [id number] 50mg Take 1 Univers mg tablet 1-27 tablet by ity o f 00:00: mouth [place] 00 daily. Medical Branch furosemide 2022-0 Yes [id number] 20mg Take 1 U nivers 20 mg 1-27 tablet by ity of tablet 00:00: mouth [place] 00 daily. Medical Branch losartan 50 2022-0 Yes [id number] 50mg Take 1 Univers mg tablet 1-27 tablet by ity o f 00:00: mouth [place] 00 daily. Medical Branch furosemide 2022-0 Yes [id number] 20mg Take 1 U nivers 20 mg 1-27 tablet by ity of tablet 00:00: mouth [place] 00 daily. Medical Branch losartan 50 2022-0 Yes [id number] 50mg Take 1 Univers mg tablet 1-27 tablet by ity o f 00:00: mouth [place] 00 daily. Medical Branch furosemide 2022-0 Yes [id number] 20mg Take 1 U nivers 20 mg 1-27 tablet by ity of tablet 00:00: mouth [place] 00 daily. Medical Branch losartan 50 2022-0 Yes [id number] 50mg Take 1 Univers mg tablet 1-27 tablet by ity o f 00:00: mouth [place] 00 daily. Medical Branch furosemide 2022-0 Yes [id number] 20mg Take 1 U nivers 20 mg 1-27 tablet by ity of tablet 00:00: mouth [place] 00 daily. Medical Branch losartan 50 2022-0 Yes [id number] 50mg Take 1 Univers mg tablet 1-27 tablet by ity o f 00:00: mouth [place] 00 daily. Medical Branch furosemide 3-0 Yes [id number] 20mg Take 1 U nivers 20 mg 1-27 tablet by ity of tablet 00:00: mouth [place] 00 daily. Medical Branch losartan 50 2022-0 Yes [id number] 50mg Take 1 Univers mg tablet 1-27 tablet by ity o f 00:00: mouth [place] 00 daily. Medical Branch furosemide 2023-0 Yes [id number] 20mg Take 1 U nivers 20 mg 1-27 tablet by ity of tablet 00:00: mouth [place] 00 daily. Medical Branch losartan 50 2022-0 Yes [id number] 50mg Take 1 Univers mg tablet 1-27 tablet by ity o f 00:00: mouth [place] 00 daily. Medical Branch furosemide 2023-0 Yes [id number] 20mg Take 1 U nivers 20 mg 1-27 tablet by ity of tablet 00:00: mouth [place] 00 daily. Medical Branch losartan 50 2022-0 Yes [id number] 50mg Take 1 Univers mg tablet 1-27 tablet by ity o f 00:00: mouth [place] 00 daily. Medical Branch furosemide 2023-0 Yes [id number] 20mg Take 1 U nivers 20 mg 1-27 tablet by ity of tablet 00:00: mouth [place] 00 daily. Medical Branch losartan 50 2022-0 Yes [id number] 50mg Take 1 Univers mg tablet 1-27 tablet by ity o f 00:00: mouth [place] 00 daily. Medical Branch furosemide 3-0 Yes [id number] 20mg Take 1 U nivers 20 mg 1-27 tablet by ity of tablet 00:00: mouth [place] 00 daily. Medical Branch losartan 50 2022-0 Yes [id number] 50mg Take 1 Univers mg tablet 1-27 tablet by ity o f 00:00: mouth [place] 00 daily. Medical Branch furosemide 2023-0 Yes [id number] 20mg Take 1 U nivers 20 mg 1-27 tablet by ity of tablet 00:00: mouth [place] 00 daily. Medical Branch losartan 50 2022-0 Yes [id number] 50mg Take 1 Univers mg tablet 1-27 tablet by ity o f 00:00: mouth [place] 00 daily. Medical Branch furosemide 2023-0 Yes [id number] 20mg Take 1 U nivers 20 mg 1-27 tablet by ity of tablet 00:00: mouth [place] 00 daily. Medical Branch losartan 50 3-0 Yes [id number] 50mg Take 1 Univers mg tablet 1-27 tablet by ity o f 00:00: mouth [place] 00 daily. Medical Branch furosemide 2023-0 Yes [id number] 20mg Take 1 U nivers 20 mg 1-27 tablet by ity of tablet 00:00: mouth [place] 00 daily. Medical Branch furosemide Yes [id number] 20mg Take 1 U nivers 20 mg 1-27 tablet by ity of tablet 00:00: mouth [place] 00 daily. Medical Branch furosemide Yes [id number] 20mg Take 1 U nivers 20 mg 1-27 tablet by ity of tablet 00:00: mouth [place] 00 daily. Medical Branch losartan 50 0 2022- No [id number] 50mg Take 1 Univers mg tablet 1-27 -13 tablet by ity of 00:00: 00:00 mouth [place] 00 :00 daily. Medical Branch carvediloL 2021-02 Yes [id number] 6.25mg Take 1 Univers 6.25 mg 2-09 tablet by ity of tablet 00:00: mouth 2 (two) Medical times Branch daily with meals. atorvastati 2021-02 Yes [id number] 20mg Take 1 Univers n 20 mg 2-09 tablet by ity of tablet 00:00: mouth at [place] 00 bedtime. Medical Branch omeprazole 2021-02 Yes [id number] 1{tbl} Take 1 Univers 20 mg TbLD 2-09 tablet by ity of 00:00: mouth [place] 00 daily. Medical Branch tolterodine 2021-02 Yes [id number] 2mg Take 1 Univers [place] 2 mg 24 2-09 capsule by ity of hr capsule 00:00: mouth [place] 00 daily. Medical Branch carvediloL 2021-02 Yes [id number] 6.25mg Take 1 Univers 6.25 mg 2-09 tablet by ity of tablet 00:00: mouth 2 (two) Medical times Branch daily with meals. atorvastati 2021-02 Yes [id number] 20mg Take 1 Univers n 20 mg 2-09 tablet by ity of tablet 00:00: mouth at [place] 00 bedtime. Medical Branch omeprazole 2021-02 Yes [id number] 1{tbl} Take 1 Univers 20 mg TbLD 2-09 tablet by ity of 00:00: mouth [place] 00 daily. Medical Branch tolterodine 2021-02 Yes [id number] 2mg Take 1 Univers LA 2 mg 24 2-09 capsule by ity of hr capsule 00:00: mouth [place] 00 daily. Medical Branch carvediloL 2021-02 Yes [id number] 6.25mg Take 1 Univers 6.25 mg 2-09 tablet by ity of tablet 00:00: mouth 2 (two) Medical times Branch daily with meals. atorvastati 2021-02 Yes [id number] 20mg Take 1 Univers n 20 mg 2-09 tablet by ity of tablet 00:00: mouth at [place] 00 bedtime. Medical Branch omeprazole 2021-02 Yes [id number] 1{tbl} Take 1 Univers 20 mg TbLD 2-09 tablet by ity of 00:00: mouth [place] 00 daily. Medical Branch tolterodine 2021-02 Yes [id number] 2mg Take 1 Univers [place] 2 mg 24 2-09 capsule by ity of hr capsule 00:00: mouth [place] 00 daily. Medical Branch carvediloL 2021-02 Yes [id number] 6.25mg Take 1 Univers 6.25 mg 2-09 tablet by ity of tablet 00:00: mouth 2 (two) Medical times Branch daily with meals. atorvastati 2021-02 Yes [id number] 20mg Take 1 Univers n 20 mg 2-09 tablet by ity of tablet 00:00: mouth at [place] 00 bedtime. Medical Branch omeprazole 2021-02 Yes [id number] 1{tbl} Take 1 Univers 20 mg TbLD 2-09 tablet by ity of 00:00: mouth [place] 00 daily. Medical Branch tolterodine 2021-02 Yes [id number] 2mg Take 1 Univers [place] 2 mg 24 2-09 capsule by ity of hr capsule 00:00: mouth [place] 00 daily. Medical Branch carvediloL 2021-02 Yes [id number] 6.25mg Take 1 Univers 6.25 mg 2-09 tablet by ity of tablet 00:00: mouth 2 00 (two) Medical times Branch daily with meals. atorvastati 2021-02 Yes [id number] 20mg Take 1 Univers n 20 mg 2-09 tablet by ity of tablet 00:00: mouth at [place] 00 bedtime. Medical Branch omeprazole 2021-02 Yes [id number] 1{tbl} Take 1 Univers 20 mg TbLD 2-09 tablet by ity of 00:00: mouth [place] 00 daily. Medical Branch tolterodine 2021-02 Yes [id number] 2mg Take 1 Univers [place] 2 mg 24 2-09 capsule by ity of hr capsule 00:00: mouth [place] 00 daily. Medical Branch carvediloL 2021-02 Yes [id number] 6.25mg Take 1 Univers 6.25 mg 2-09 tablet by ity of tablet 00:00: mouth (two) Medical times Branch daily with meals. atorvastati 2021-02 Yes [id number] 20mg Take 1 Univers n 20 mg 2-09 tablet by ity of tablet 00:00: mouth at [place] 00 bedtime. Medical Branch omeprazole 2021-02 Yes [id number] 1{tbl} Take 1 Univers 20 mg TbLD 2-09 tablet by ity of 00:00: mouth [place] 00 daily. Medical Branch tolterodine 2021-02 Yes [id number] 2mg Take 1 Univers [place] 2 mg 24 2-09 capsule by ity of hr capsule 00:00: mouth 00 daily. Medical Branch carvediloL 2021-02 Yes [id number] 6.25mg Take 1 Univers 6.25 mg 2-09 tablet by ity of tablet 00:00: mouth (two) Medical times Branch daily with meals. atorvastati 2021-02 Yes [id number] 20mg Take 1 Univers n 20 mg 2-09 tablet by ity of tablet 00:00: mouth at [place] 00 bedtime. Medical Branch omeprazole 2021-02 Yes [id number] 1{tbl} Take 1 Univers 20 mg TbLD 2-09 tablet by ity of 00:00: mouth [place] 00 daily. Medical Branch tolterodine 2021-02 Yes [id number] 2mg Take 1 Univers [place] 2 mg 24 2-09 capsule by ity of hr capsule 00:00: mouth 00 daily. Medical Branch carvediloL 2021-02 Yes [id number] 6.25mg Take 1 Univers 6.25 mg 2-09 tablet by ity of tablet 00:00: mouth 2 (two) Medical times Branch daily with meals. atorvastati 2021-02 Yes [id number] 20mg Take 1 Univers n 20 mg 2-09 tablet by ity of tablet 00:00: mouth at [place] 00 bedtime. Medical Branch omeprazole 2021-02 Yes [id number] 1{tbl} Take 1 Univers 20 mg TbLD 2-09 tablet by ity of 00:00: mouth [place] 00 daily. Medical Branch tolterodine 2022-1 Yes [id number] 2mg Take 1 Univers [place] 2 mg 24 2-09 capsule by ity of hr capsule 00:00: mouth [place] 00 daily. Medical Branch carvediloL 2021-02 Yes [id number] 6.25mg Take 1 Univers 6.25 mg 2-09 tablet by ity of tablet 00:00: mouth 2 (two) Medical times Branch daily with meals. atorvastati 2021-02 Yes [id number] 20mg Take 1 Univers n 20 mg 2-09 tablet by ity of tablet 00:00: mouth at [place] 00 bedtime. Medical Branch omeprazole 2021-02 Yes [id number] 1{tbl} Take 1 Univers 20 mg TbLD 2-09 tablet by ity of 00:00: mouth [place] 00 daily. Medical Branch tolterodine 2021-02 Yes [id number] 2mg Take 1 Univers [place] 2 mg 24 2-09 capsule by ity of hr capsule 00:00: mouth [place] 00 daily. Medical Branch carvediloL 2021-02 Yes [id number] 6.25mg Take 1 Univers 6.25 mg 2-09 tablet by ity of tablet 00:00: mouth 2 (two) Medical times Branch daily with meals. atorvastati 2021-02 Yes [id number] 20mg Take 1 Univers n 20 mg 2-09 tablet by ity of tablet 00:00: mouth at [place] 00 bedtime. Medical Branch omeprazole 2021-02 Yes [id number] 1{tbl} Take 1 Univers 20 mg TbLD 2-09 tablet by ity of 00:00: mouth [place] 00 daily. Medical Branch tolterodine 2021-02 Yes [id number] 2mg Take 1 Univers [place] 2 mg 24 2-09 capsule by ity of hr capsule 00:00: mouth [place] 00 daily. Medical Branch carvediloL 2021-02 Yes [id number] 6.25mg Take 1 Univers 6.25 mg 2-09 tablet by ity of tablet 00:00: mouth 2 (two) Medical times Branch daily with meals. atorvastati 2021-02 Yes [id number] 20mg Take 1 Univers n 20 mg 2-09 tablet by ity of tablet 00:00: mouth at [place] 00 bedtime. Medical Branch omeprazole 2021-02 Yes [id number] 1{tbl} Take 1 Univers 20 mg TbLD 2-09 tablet by ity of 00:00: mouth [place] 00 daily. Medical Branch tolterodine 2021-02 Yes [id number] 2mg Take 1 Univers [place] 2 mg 24 2-09 capsule by ity of hr capsule 00:00: mouth [place] 00 daily. Medical Branch carvediloL 2021-02 Yes [id number] 6.25mg Take 1 Univers 6.25 mg 2-09 tablet by ity of tablet 00:00: mouth 2 00 (two) Medical times Branch daily with meals. atorvastati 2021-02 Yes [id number] 20mg Take 1 Univers n 20 mg 2-09 tablet by ity of tablet 00:00: mouth at [place] 00 bedtime. Medical Branch omeprazole 2021-02 Yes [id number] 1{tbl} Take 1 Univers 20 mg TbLD 2-09 tablet by ity of 00:00: mouth [place] 00 daily. Medical Branch tolterodine 2021-02 Yes [id number] 2mg Take 1 Univers [place] 2 mg 24 2-09 capsule by ity of hr capsule 00:00: mouth [place] 00 daily. Medical Branch carvediloL 2021-02 Yes [id number] 6.25mg Take 1 Univers 6.25 mg 2-09 tablet by ity of tablet 00:00: mouth 2 (two) Medical times Branch daily with meals. atorvastati 2021-02 Yes [id number] 20mg Take 1 Univers n 20 mg 2-09 tablet by ity of tablet 00:00: mouth at [place] 00 bedtime. Medical Branch omeprazole 2021-02 Yes [id number] 1{tbl} Take 1 Univers 20 mg TbLD 2-09 tablet by ity of 00:00: mouth [place] 00 daily. Medical Branch tolterodine 2021-02 Yes [id number] 2mg Take 1 [facility] [place] 2 mg 24 2-09 capsule by ity of hr capsule 00:00: mouth [place] 00 daily. Medical Branch carvediloL 2021-02 Yes [id number] 6.25mg Take 1 Univers 6.25 mg 2-09 tablet by ity of tablet 00:00: mouth 2 00 (two) Medical times Branch daily with meals. atorvastati 2021-02 Yes [id number] 20mg Take 1 Univers n 20 mg 2-09 tablet by ity of tablet 00:00: mouth at [place] 00 bedtime. Medical Branch omeprazole 2021-02 Yes [id number] 1{tbl} Take 1 Univers 20 mg TbLD 2-09 tablet by ity of 00:00: mouth [place] 00 daily. Medical Branch tolterodine 2021-02 Yes [id number] 2mg Take 1 [facility] [place] 2 mg 24 2-09 capsule by ity of hr capsule 00:00: mouth [place] 00 daily. Medical Branch carvediloL 2021-02 Yes [id number] 6.25mg Take 1 Univers 6.25 mg 2-09 tablet by ity of tablet 00:00: mouth 2 [place] 00 (two) Medical times Branch daily with meals. atorvastati 2021-02 Yes [id number] 20mg Take 1 Univers n 20 mg 2-09 tablet by ity of tablet 00:00: mouth at [place] 00 bedtime. Medical Branch omeprazole 2021-02 Yes [id number] 1{tbl} Take 1 Univers 20 mg TbLD 2-09 tablet by ity of 00:00: mouth [place] 00 daily. Medical Branch tolterodine 2021-02 Yes [id number] 2mg Take 1 [facility] [place] 2 mg 24 2-09 capsule by ity of hr capsule 00:00: mouth [place] 00 daily. Medical Branch carvediloL 2021-02 Yes [id number] 6.25mg Take 1 Univers 6.25 mg 2-09 tablet by ity of tablet 00:00: mouth 2 00 (two) Medical times Branch daily with meals. atorvastati 2021-02 Yes [id number] 20mg Take 1 Univers n 20 mg 2-09 tablet by ity of tablet 00:00: mouth at [place] 00 bedtime. Medical Branch omeprazole 2021-02 Yes [id number] 1{tbl} Take 1 Univers 20 mg TbLD 2-09 tablet by ity of 00:00: mouth [place] 00 daily. [facility] tolterodine 2021-02 Yes [id number] 2mg Take 1 [facility] [place] 2 mg 24 2-09 capsule by [facility] of hr capsule 00:00: mouth [place] 00 daily. [facility] carvediloL 2021-02 Yes [id number] 6.25mg Take 1 [facility] 6.25 mg 2-09 tablet by [facility] of tablet 00:00: mouth 2 00 (two) Medical times Branch daily with meals. atorvastati 2021-02 Yes [id number] 20mg Take 1 [facility] n 20 mg 2-09 tablet by [facility] of tablet 00:00: mouth at [place] 00 bedtime. [facility] omeprazole 2021-02 Yes [id number] 1{tbl} Take 1 [facility] 20 mg TbLD 2-09 tablet by [facility] of 00:00: mouth [place] 00 daily. [facility] tolterodine 2021-02 Yes [id number] 2mg Take 1 [facility] [place] 2 mg 24 2-09 capsule by [facility] of hr capsule 00:00: mouth [place] 00 daily. [facility] carvediloL 2021-02 Yes [id number] 6.25mg Take 1 [facility] 6.25 mg 2-09 tablet by [facility] of tablet 00:00: mouth 2 00 (two) Medical times Branch daily with meals. atorvastati 2021-02 Yes [id number] 20mg Take 1 [facility] n 20 mg 2-09 tablet by [facility] of tablet 00:00: mouth at [place] 00 bedtime. [facility] tolterodine 2021-02 Yes [id number] 2mg Take 1 [facility] 2 mg 24 2-09 capsule by [facility] of hr capsule 00:00: mouth [place] 00 daily. [facility] carvediloL 2021-02 Yes [id number] 6.25mg Take 1 [facility] 6.25 mg 2-09 tablet by [facility] of tablet 00:00: mouth 2 00 (two) Medical times Branch daily with meals. atorvastati 2021-02 Yes [id number] 20mg Take 1 [facility] n 20 mg 2-09 tablet by [facility] of tablet 00:00: mouth at [place] 00 bedtime. [facility] tolterodine 2021-02 Yes [id number] 2mg Take 1 [facility] [place] 2 mg 24 2-09 capsule by [facility] of hr capsule 00:00: mouth [place] 00 daily. [facility] carvediloL 2021-02 Yes [id number] 6.25mg Take 1 [facility] 6.25 mg 2-09 tablet by [facility] of tablet 00:00: mouth 2 00 (two) Medical times Branch daily with meals. atorvastati 2021-02 Yes [id number] 20mg Take 1 [facility] n 20 mg 2-09 tablet by [facility] of tablet 00:00: mouth at [place] 00 bedtime. [facility] tolterodine 2021-02 Yes [id number] 2mg Take 1 [facility] [place] 2 mg 24 2-09 capsule by [facility] of hr capsule 00:00: mouth [place] 00 daily. [facility] carvediloL 2021-02 Yes [id number] 6.25mg Take 1 [facility] 6.25 mg 2-09 tablet by it[facility] of tablet 00:00: mouth 2 (two) Medical times Branch daily with meals. atorvastati 2021-02 Yes [id number] 20mg Take 1 [facility] n 20 mg 2-09 tablet by [facility] of tablet 00:00: mouth at 00 bedtime. [facility] tolterodine 2021-02 Yes [id number] 2mg Take 1 [facility] 2 mg 24 2-09 capsule by [facility] of hr capsule 00:00: mouth 00 daily. [facility] carvediloL 2021-02 Yes [id number] 6.25mg Take 1 [facility] 6.25 mg 2-09 tablet by [facility] of tablet 00:00: mouth 2 (two) Medical times Branch daily with meals. atorvastati 2021-02 Yes [id number] 20mg Take 1 [facility] n 20 mg 2-09 tablet by [facility] of tablet 00:00: mouth at 00 bedtime. [facility] tolterodine 2021-02 Yes [id number] 2mg Take 1 [facility] [place] 2 mg 24 2-09 capsule by [facility] hr capsule 00:00: mouth 00 daily. [facility] carvediloL 2021-02 Yes [id number] 6.25mg Take 1 [facility] 6.25 mg 2-09 tablet by [facility] of tablet 00:00: mouth 2 (two) Medical times Branch daily with meals. atorvastati 2021-02 Yes [id number] 20mg Take 1 [facility] n 20 mg 2-09 tablet by [facility] of tablet 00:00: mouth at [place] 00 bedtime. [facility] tolterodine 2021-02 Yes [id number] 2mg Take 1 [facility] [place] 2 mg 24 2-09 capsule by [facility] of hr capsule 00:00: mouth 00 daily. [facility] carvediloL 2021-02 Yes [id number] 6.25mg Take 1 [facility] 6.25 mg 2-09 tablet by [facility] of tablet 00:00: mouth 2 (two) Medical times Branch daily with meals. atorvastati 2021-02 Yes [id number] 20mg Take 1 [facility] n 20 mg 2-09 tablet by [facility] of tablet 00:00: mouth at 00 bedtime. [facility] tolterodine 2021-02 Yes [id number] 2mg Take 1 [facility] [place] 2 mg 24 2-09 capsule by [facility] of hr capsule 00:00: mouth [place] 00 daily. [facility] carvediloL 2021-02 Yes [id number] 12.5mg Take 1 [facility] 12.5 mg -11 tablet by ity of tablet 00:00: mouth 2 [place] 00 (two) Medical times Branch daily with meals. Additional refills per cardio carvediloL 2021-02 Yes [id number] 12.5mg Take 1 [facility] 12.5 mg -11 tablet by [facility] of tablet 00:00: mouth 2 [place] 00 (two) Medical times Branch daily with meals. Additional refills per cardio carvediloL 2021-02- No [id number] 12.5mg Take 1 [facility] 12.5 mg -11 12- tablet by ity of tablet 00:00: 00:00 mouth 2 [place] 00 :00 (two) Medical times Branch daily with meals. Additional refills per cardio carvediloL 2021-02- No [id number] 12.5mg Take 1 [facility] 12.5 mg -11 - tablet by ity of tablet 00:00: 00:00 mouth 2 [place] 00 :00 (two) Medical times Branch daily [...] 00 daily with Medical breakfast Branch spironolact 2021-02 No 25mg Take 25 mg [facility] one 25 mg 0-21 10-21 by mouth ity o f tablet 14:33: 00:00 daily. [place] 53 :00 [facility] spironolact 2022-1 2022- No 25mg Take 25 mg [facility] one 25 mg 0-21 10-21 by mouth ity o f tablet 14:33: 00:00 daily. [place] 53 :00 Medical Branch benzonatate 2021-02 Yes [id number] 200mg Take 1 [facility] 200 mg 0-21 capsule by ity of capsule 00:00: mouth 3 [place] 00 (three) Medical times Branch daily as needed for Cough. atorvastati 2021-02 Yes [id number] 40mg Take 1 [facility] n 40 mg 0-21 tablet by ity of tablet 00:00: mouth at [place] 00 bedtime. Medical Branch losartan 25 2021-02 Yes [id number] 25mg Take 1 [facility] mg tablet 0-21 tablet by ity o f 00:00: mouth at [place] 00 bedtime. Medical Branch furosemide 2021-02 Yes [id number] 20mg Take 1 [facility] 20 mg 0-21 tablet by ity of tablet 00:00: mouth [place] 00 daily. [facility] Branch spironolact 2021-02 Yes [id number] 25mg Take 1 [facility] one 25 mg 0-21 tablet by ity o f tablet 00:00: mouth [place] 00 daily. [facility] benzonatate 2021-02 Yes [id number] 200mg Take 1 [facility] 200 mg 0-21 capsule by ity of capsule 00:00: mouth 3 [place] 00 (three) Medical times Branch daily as needed for Cough. atorvastati 2021-02 Yes [id number] 40mg Take 1 [facility] n 40 mg 0-21 tablet by ity of tablet 00:00: mouth at [place] 00 bedtime. Medical Branch losartan 25 2021-02 Yes [id number] 25mg Take 1 [facility] mg tablet 0-21 tablet by ity o f 00:00: mouth at [place] 00 bedtime. [facility] Branch furosemide 2021-02 Yes [id number] 20mg Take 1 [facility] 20 mg 0-21 tablet by ity of tablet 00:00: mouth [place] 00 daily. [facility] Branch spironolact 2021-02 Yes [id number] 25mg Take 1 [facility] one 25 mg 0-21 tablet by ity o f tablet 00:00: mouth [place] 00 daily. [facility] Branch benzonatate 2021-02 Yes [id number] 200mg Take 1 [facility] 200 mg 0-21 capsule by ity of capsule 00:00: mouth 3 [place] 00 (three) Medical times Branch daily as needed for Cough. atorvastati 2021-02 Yes [id number] 40mg Take 1 [facility] n 40 mg 0-21 tablet by ity of tablet 00:00: mouth at [place] 00 bedtime. Medical Branch losartan 25 2021-02 Yes [id number] 25mg Take 1 [facility] mg tablet 0-21 tablet by ity o f 00:00: mouth at [place] 00 bedtime. [facility] Branch furosemide 2021-02 Yes [id number] 20mg Take 1 [facility] 20 mg 0-21 tablet by ity of tablet 00:00: mouth [place] 00 daily. [facility] Branch spironolact 2021-02 Yes [id number] 25mg Take 1 [facility] one 25 mg 0-21 tablet by ity o f tablet 00:00: mouth [place] 00 daily. [facility] Branch benzonatate 2021-02 Yes [id number] 200mg Take 1 [facility] 200 mg 0-21 capsule by ity of capsule 00:00: mouth 3 [place] 00 (three) Medical times Branch daily as needed for Cough. atorvastati 2021-02 Yes [id number] 40mg Take 1 [facility] n 40 mg 0-21 tablet by ity of tablet 00:00: mouth at [place] 00 bedtime. Medical Branch losartan 25 2021-02 Yes [id number] 25mg Take 1 [facility] mg tablet 0-21 tablet by ity o f 00:00: mouth at [place] 00 bedtime. Medical Branch furosemide 2021-02 Yes [id number] 20mg Take 1 [facility] 20 mg 0-21 tablet by ity of tablet 00:00: mouth [place] 00 daily. [facility] Branch spironolact 2021-02 Yes [id number] 25mg Take 1 [facility] one 25 mg 0-21 tablet by ity o f tablet 00:00: mouth [place] 00 daily. [facility] Branch benzonatate 2021-02 Yes [id number] 200mg Take 1 [facility] 200 mg 0-21 capsule by ity of capsule 00:00: mouth 3 [place] 00 (three) Medical times Branch daily as needed for Cough. atorvastati 2021-02 Yes [id number] 40mg Take 1 [facility] n 40 mg 0-21 tablet by ity of tablet 00:00: mouth at [place] 00 bedtime. Medical Branch losartan 25 2021-02 Yes [id number] 25mg Take 1 [facility] mg tablet 0-21 tablet by ity o f 00:00: mouth at [place] 00 bedtime. Medical Branch furosemide 2021-02 Yes [id number] 20mg Take 1 [facility] 20 mg 0-21 tablet by it[facility] of tablet 00:00: mouth [place] 00 daily. [facility] Branch spironolact 2021-02 Yes [id number] 25mg Take 1 [facility] one 25 mg 0-21 tablet by ity o f tablet 00:00: mouth [place] 00 daily. [facility] benzonatate 2021-02 Yes [id number] 200mg Take 1 [facility] 200 mg 0-21 capsule by ity of capsule 00:00: mouth 3 [place] 00 (three) Medical times Branch daily as needed for Cough. atorvastati 2021-02 Yes [id number] 40mg Take 1 [facility] n 40 mg 0-21 tablet by ity of tablet 00:00: mouth at [place] 00 bedtime. Medical Branch losartan 25 2021-02 Yes [id number] 25mg Take 1 [facility] mg tablet 0-21 tablet by ity o f 00:00: mouth at [place] 00 bedtime. Medical Branch furosemide 2021-02 Yes [id number] 20mg Take 1 [facility] 20 mg 0-21 tablet by ity of tablet 00:00: mouth [place] 00 daily. [facility] spironolact 2021-02 Yes [id number] 25mg Take 1 [facility] one 25 mg 0-21 tablet by ity o f tablet 00:00: mouth [place] 00 daily. [facility] Branch losartan 25 2021-02 Yes [id number] 25mg Take 1 [facility] mg tablet 0-21 tablet by ity o f 00:00: mouth at [place] 00 bedtime. Medical Branch furosemide 2021-02 Yes [id number] 20mg Take 1 [facility] 20 mg 0-21 tablet by ity of tablet 00:00: mouth [place] 00 daily. [facility] Branch spironolact 2021-02 Yes [id number] 25mg Take 1 [facility] one 25 mg 0-21 tablet by ity o f tablet 00:00: mouth [place] 00 daily. [facility] Branch losartan 25 2021-02 Yes [id number] 25mg Take 1 [facility] mg tablet 0-21 tablet by ity o f 00:00: mouth at [place] 00 bedtime. [facility] Branch furosemide 2021-02 Yes [id number] 20mg Take 1 [facility] 20 mg 0-21 tablet by ity of tablet 00:00: mouth [place] 00 daily. [facility] spironolact 2021-02 Yes [id number] 25mg Take 1 [facility] one 25 mg 0-21 tablet by ity o f tablet 00:00: mouth [place] 00 daily. [facility] Branch losartan 25 2021-02 Yes [id number] 25mg Take 1 [facility] mg tablet 0-21 tablet by ity o f 00:00: mouth at [place] 00 bedtime. Medical Branch furosemide 2021-02 Yes [id number] 20mg Take 1 [facility] 20 mg 0-21 tablet by ity of tablet 00:00: mouth [place] 00 daily. [facility] Branch spironolact 2021-02 Yes [id number] 25mg Take 1 [facility] one 25 mg 0-21 tablet by ity o f tablet 00:00: mouth [place] 00 daily. [facility] Branch losartan 25 2021-02 Yes [id number] 25mg Take 1 [facility] mg tablet 0-21 tablet by ity o f 00:00: mouth at [place] 00 bedtime. Medical Branch furosemide 2021-02 Yes [id number] 20mg Take 1 [facility] 20 mg 0-21 tablet by ity of tablet 00:00: mouth [place] 00 daily. [facility] Branch spironolact 2021-02 Yes [id number] 25mg Take 1 [facility] one 25 mg 0-21 tablet by ity o f tablet 00:00: mouth [place] 00 daily. [facility] Branch spironolact 2021-02 Yes [id number] 25mg Take 1 [facility] one 25 mg 0-21 tablet by ity o f tablet 00:00: mouth [place] 00 daily. [facility] Branch spironolact 2021-02 Yes [id number] 25mg Take 1 [facility] one 25 mg 0-21 tablet by ity o f tablet 00:00: mouth [place] 00 daily. [facility] Branch spironolact 2021-02 Yes [id number] 25mg Take 1 [facility] one 25 mg 0-21 tablet by ity o f tablet 00:00: mouth [place] 00 daily. [facility] spironolact 2021-02 Yes [id number] 25mg Take 1 [facility] one 25 mg 0-21 tablet by ity o f tablet 00:00: mouth [place] 00 daily. [facility] Branch spironolact 2021-02 Yes [id number] 25mg Take 1 [facility] one 25 mg 0-21 tablet by ity o f tablet 00:00: mouth [place] 00 daily. [facility] spironolact 2021-02 Yes [id number] 25mg Take 1 [facility] one 25 mg 0-21 tablet by ity o f tablet 00:00: mouth [place] 00 daily. [facility] spironolact 2021-02 Yes [id number] 25mg Take 1 [facility] one 25 mg 0-21 tablet by ity o f tablet 00:00: mouth [place] 00 daily. [facility] spironolact 2021-02 Yes [id number] 25mg Take 1 [facility] one 25 mg 0-21 tablet by ity o f tablet 00:00: mouth [place] 00 daily. [facility] spironolact 2021-02 Yes [id number] 25mg Take 1 [facility] one 25 mg 0-21 tablet by ity o f tablet 00:00: mouth [place] 00 daily. [facility] spironolact 2021-02 Yes [id number] 25mg Take 1 [facility] one 25 mg 0-21 tablet by ity o f tablet 00:00: mouth [place] 00 daily. [facility] spironolact 2021-02 Yes [id number] 25mg Take 1 [facility] one 25 mg 0-21 tablet by ity o f tablet 00:00: mouth [place] 00 daily. [facility] spironolact 2021-02 Yes [id number] 25mg Take 1 [facility] one 25 mg 0-21 tablet by ity o f tablet 00:00: mouth [place] 00 daily. [facility] spironolact 2021-02 Yes [id number] 25mg Take 1 [facility] one 25 mg 0-21 tablet by ity o f tablet 00:00: mouth [place] 00 daily. [facility] Branch spironolact 2021-02 Yes [id number] 25mg Take 1 [facility] one 25 mg 0-21 tablet by ity o f tablet 00:00: mouth [place] 00 daily. [facility] Branch spironolact 2021-02 Yes [id number] 25mg Take 1 [facility] one 25 mg 0-21 tablet by ity o f tablet 00:00: mouth [place] 00 daily. [facility] spironolact 2021-02 Yes [id number] 25mg Take 1 [facility] one 25 mg 0-21 tablet by ity o f tablet 00:00: mouth [place] 00 daily. [facility] Branch spironolact 2021-02 Yes [id number] 25mg Take 1 [facility] one 25 mg 0-21 tablet by ity o f tablet 00:00: mouth [place] 00 daily. [facility] spironolact 2021-02 Yes [id number] 25mg Take 1 [facility] one 25 mg 0-21 tablet by ity o f tablet 00:00: mouth [place] 00 daily. [facility] Branch spironolact 2022-1 Yes [id number] 25mg Take 1 [facility] one 25 mg 0-21 tablet by ity o f tablet 00:00: mouth [place] 00 daily. [facility] spironolact 2021-02 Yes [id number] 25mg Take 1 [facility] one 25 mg 0-21 tablet by ity o f tablet 00:00: mouth [place] 00 daily. [facility] Branch spironolact 2021-02 Yes [id number] 25mg Take 1 [facility] one 25 mg 0-21 tablet by ity o f tablet 00:00: mouth [place] 00 daily. [facility] Branch losartan 25 2021-02- No [id number] 25mg Take 1 [facility] mg tablet 0-21 -27 tablet by ity of 00:00: 00:00 mouth at [place] 00 :00 bedtime. Medical Branch furosemide 2021-02- No [id number] 20mg Take 1 [facility] 20 mg 0-21 -27 tablet by ity of tablet 00:00: 00:00 mouth [place] 00 :00 daily. Medical Branch losartan 2021-02- No [id number] 25mg Take 1 [facility] mg tablet 0-05 03-27 tablet by ity of 00:00: 00:00 mouth at [place] 00 :00 bedtime. Medical Branch furosemide 2021-02- No [id number] 20mg Take 1 [facility] 20 mg 0-21 -27 tablet by ity of tablet 00:00: 00:00 mouth [place] 00 :00 daily. Medical Branch losartan 2021-02- No [id number] 25mg Take 1 [facility] mg tablet 0-05 03-27 tablet by ity of 00:00: 00:00 mouth at [place] 00 :00 bedtime. Medical Branch furosemide 2021-02- No [id number] 20mg Take 1 [facility] 20 mg 0-21 -27 tablet by ity of tablet 00:00: 00:00 mouth [place] 00 :00 daily. Medical Branch losartan 2021-02- No [id number] 25mg Take 1 [facility] mg tablet 0-21 -27 tablet by ity of 00:00: 00:00 mouth at [place] 00 :00 bedtime. Medical Branch furosemide 2021-02- No [id number] 20mg Take 1 [facility] 20 mg 0-21 -27 tablet by ity of tablet 00:00: 00:00 mouth [place] 00 :00 daily. Medical Branch losartan 25 2021-02- No [id number] 25mg Take 1 [facility] mg tablet 0-05 03- tablet by ity of 00:00: 00:00 mouth at [place] 00 :00 bedtime. Medical Branch furosemide 2021-02- No [id number] 20mg Take 1 [facility] 20 mg 0-21 -27 tablet by ity of tablet 00:00: 00:00 mouth [place] 00 :00 daily. Medical Branch losartan 25 2021-02- No [id number] 25mg Take 1 [facility] mg tablet 003-11 tablet by ity of 00:00: 00:00 mouth at [place] 00 :00 bedtime. Medical Branch furosemide 2021-02- No [id number] 20mg Take 1 [facility] 20 mg 0-05 03- tablet by ity of tablet 00:00: 00:00 mouth [place] 00 :00 daily. Medical Branch losartan 25 2021-02- No [id number] 25mg Take 1 [facility] mg tablet 003-11 tablet by ity of 00:00: 00:00 mouth at [place] 00 :00 bedtime. Medical Branch furosemide 2021-02- No [id number] 20mg Take 1 [facility] 20 mg 0-03-11 tablet by ity of tablet 00:00: 00:00 mouth [place] 00 :00 daily. Medical Branch benzonatate 2021-02- No [id number] 200mg Take 1 [facility] 200 mg 0-21 12- capsule by ity of capsule 00:00: 00:00 mouth 3 [place] 00 :00 (three) Medical times Branch daily as needed for Cough. atorvastati 2021-02- No [id number] 40mg Take 1 [facility] n 40 mg 0-21 12- tablet by ity of tablet 00:00: 00:00 mouth at [place] 00 :00 bedtime. Medical Branch benzonatate 2021-02- No [id number] 200mg Take 1 [facility] 200 mg 0-21 12-09 capsule by ity of capsule 00:00: 00:00 mouth 3 [place] 00 :00 (three) Medical times Branch daily as needed for Cough. atorvastati 2021-02- No [id number] 40mg Take 1 [facility] n 40 mg 0-21 12-09 tablet by ity of tablet 00:00: 00:00 mouth at [place] 00 :00 bedtime. Medical Branch Albuterol 2021-2021- No 4{puff} Inhale 4 [facility] Sulfate 9-30 09-30 Puffs by [facility] (VENTOLIN 15:42: 00:00 mouth two of HFA) 108 52 :00 times Medicin (90 Base) daily. e MCG/ACT AERS carvedilol Yes 12.5mg Take 12.5 [facility] (COREG) 9-30 mg by [facility] 12.5 MG 14:53: mouth of tablet 41 daily. Medicin e carvedilol Yes 12.5mg Take 12.5 [facility] (COREG) 9-30 mg by [facility] 12.5 MG 14:53: mouth of tablet 41 daily. Medicin e Albuterol 0 Yes [id number] 4{puff} Inhale 4 [facility] Sulfate 9-30 Puffs by [facility] (VENTOLIN 00:00: mouth two of HFA) 108 00 times Medicin (90 Base) daily. e MCG/ACT AERS Fluticasone Yes [id number] 1{puff} Inhale 1 [facility] -Salmeterol 9-30 Puff by Shanda weber (ADVAIR) 00:00: mouth of 250-50 00 every 12 Medicin MCG/ACT hours. e inhaler albuterol 0 Yes [id number] 2.5mg Take 1 [facility] (PROVENTIL) 9-30 Ampule by Col lege (2.5 mg/3 00:00: nebulizati of mL) 0.083% 00 on every 4 Med icin nebulizer hours as e solution needed for Wheezing. Diclofenac 0 Yes [id number] 5g Apply 5 g [facility] Sodium 1 % 9-30 topically Kristine ege GEL 00:00: every 6 of 00 hours as Medicin needed for e Pain. Albuterol 2021-0 Yes [id number] 4{puff} Inhale 4 [facility] Sulfate 9-30 Puffs by [facility] (VENTOLIN 00:00: mouth two of HFA) 108 00 times Medicin (90 Base) daily. e MCG/ACT AERS albuterol 0 Yes [id number] 2.5mg Take 1 [facility] (PROVENTIL) 9-30 Ampule by Col [facility]ge (2.5 mg/3 00:00: nebulizati of mL) 0.083% 00 on every 4 Med icin nebulizer hours as e solution needed for Wheezing. Fluticasone 2022- No [id number] 1{puff} Inhale 1 Art -Salmeterol 11-12 Puff by Kristine spencer (ADVAIR) 00:00: 00:00 mouth of 250-50 00 :00 every 12 Medicin MCG/ACT hours. e inhaler Diclofenac 2022- No [id number] 5g Apply 5 g [facility] Sodium 1 % 11-12 topically Col lege GEL 00:00: 00:00 every 6 of 00 :00 hours as Medicin needed for e Pain. Melatonin 2021- No Take by [facility] 10 MG TABS 11-01 mouth. Colleg e 10:19: 00:00 of 25 :00 Medicin e Magnesium 2021- No Take by [facility] 100 MG CAPS 11-01 mouth. Colle ge 10:19: 00:00 of 22 :00 Medicin e losartan 50 Yes [id number] 25mg Take 0.5 [facility] mg tablet 9-12 tablets by ity of 00:00: mouth [place] 00 every Medical evening. Branch losartan 50 Yes [id number] 25mg Take 0.5 [facility] mg tablet 9-12 tablets by ity of 00:00: mouth [place] 00 every Medical evening. Branch losartan 50 Yes [id number] 25mg Take 0.5 [facility] mg tablet 9-12 tablets by ity of 00:00: mouth [place] 00 every Medical evening. Branch losartan 50 0 Yes [id number] 25mg Take 0.5 [facility] mg tablet 9-12 tablets by ity of 00:00: mouth [place] 00 every Medical evening. Branch losartan 50 0 Yes [id number] 25mg Take 0.5 [facility] mg tablet 9-12 tablets by ity of 00:00: mouth [place] 00 every Medical evening. Branch losartan 50 0 Yes [id number] 25mg Take 0.5 [facility] mg tablet 9-12 tablets by ity of 00:00: mouth [place] 00 every Medical evening. Branch losartan 50 Yes [id number] 25mg Take 0.5 [facility] mg tablet 9-12 tablets by ity of 00:00: mouth [place] 00 every Medical evening. Branch losartan 50 2021-0 Yes [id number] 25mg Take 0.5 [facility] mg tablet 9-12 tablets by ity of 00:00: mouth [place] 00 every Medical evening. Branch losartan 50 2021-0 Yes [id number] 25mg Take 0.5 [facility] mg tablet 9-12 tablets by ity of 00:00: mouth [place] 00 every Medical evening. Branch losartan 50 2021-0 Yes [id number] 25mg Take 0.5 [facility] mg tablet 9-12 tablets by ity of 00:00: mouth [place] 00 every Medical evening. Branch losartan 50 2021-0 Yes [id number] 25mg Take 0.5 [facility] mg tablet 9-12 tablets by ity of 00:00: mouth [place] 00 every Medical evening. Branch losartan 50 2021-0 Yes [id number] 25mg Take 0.5 [facility] mg tablet 9-12 tablets by ity of 00:00: mouth [place] 00 every Medical evening. Branch losartan 50 0 Yes [id number] 25mg Take 0.5 [facility] mg tablet 9-12 tablets by ity of 00:00: mouth [place] 00 every Medical evening. Branch losartan 50 2021-0 2021- No [id number] 25mg Take 0.5 [facility] mg tablet 9-12 10-21 tablets by ity of 00:00: 00:00 mouth [place] 00 :00 every Medical evening. Branch losartan 50 2021-0 2021- No [id number] 25mg Take 0.5 [facility] mg tablet 9-12 10-21 tablets by ity of 00:00: 00:00 mouth [place] 00 :00 every Medical evening. Branch furosemide 0 Yes 40mg Take 40 mg [facility] (LASIX) 40 8-28 by mouth Colle ge MG tablet 00:00: daily. of 00 Medicin e spironolact Yes 25mg Take 25 mg [facility] one 8-28 by mouth College (ALDACTONE) 00:00: daily. of 25 MG 00 Medicin tablet e furosemide 0 Yes 40mg Take 40 mg [facility] (LASIX) 40 8-28 by mouth Colle ge MG tablet 00:00: daily. of 00 Medicin e spironolact 2022-0 Yes 25mg Take 25 mg [facility] one - by mouth [facility] (ALDACTONE) 00:00: daily. of 25 MG 00 Medicin tablet e furosemide 2022- No 40mg Take 40 mg [facility] (LASIX) 40 10-10 by mouth Kristine ege MG tablet 00:00: 00:00 daily. of 00 :00 Medicin e spironolact 2022- No 25mg Take 25 mg [facility] one 10-10 by mouth [facility] (ALDACTONE) 00:00: 00:00 daily. of 25 MG 00 :00 Medicin tablet e metFORMIN 2021-0 Yes 500mg Take 1 [facility] 500 mg 24 7-29 tablet by ity o f hr tablet 00:00: mouth 00 daily with Medical breakfast. Branch metFORMIN 2021-0 Yes 500mg Take 1 [facility] rs 500 mg 24 7-29 tablet by ity o f hr tablet 00:00: mouth 00 daily with Medical breakfast. Branch metFORMIN 2021-0 Yes 500mg Take 1 [facility] rs 500 mg 24 7-29 tablet by ity o f hr tablet 00:00: mouth 00 daily with Medical breakfast. Branch metFORMIN 2021-0 Yes 500mg Take 1 [facility] rs 500 mg 24 7-29 tablet by ity o f hr tablet 00:00: mouth 00 daily with Medical breakfast. Branch metFORMIN 2-0 Yes 500mg Take 1 [facility] rs 500 mg 24 7-29 tablet by ity o f hr tablet 00:00: mouth 00 daily with Medical breakfast. Branch metFORMIN 2-0 Yes 500mg Take 1 [facility] rs 500 mg 24 7-29 tablet by ity o f hr tablet 00:00: mouth 00 daily with Medical breakfast. Branch metFORMIN 2-0 Yes 500mg Take 1 [facility] rs 500 mg 24 7-29 tablet by ity o f hr tablet 00:00: mouth 00 daily with Medical breakfast. Branch metFORMIN 2-0 Yes 500mg Take 1 [facility] rs 500 mg 24 7-29 tablet by ity o f hr tablet 00:00: mouth [place] 00 daily with Medical breakfast. Branch metFORMIN 2-0 Yes 500mg Take 1 [facility] rs 500 mg 24 7-29 tablet by ity o f hr tablet 00:00: mouth 00 daily with Medical breakfast. Branch metFORMIN [...] 00 :00 daily with Medical breakfast. Branch OXYBUTYNIN 2021- No 10mg Take 10 mg [facility] CHLORIDE 08-27-15 by mouth. ity o f ORAL 14:50: 00:00 Managed by [place] 14 :00 Dr. Cuenca Medical Branch losartan 50 2021-0 2021- No [id number] 50mg Take 1 [facility] mg tablet 08-27-12 tablet by ity of 00:00: 00:00 mouth [place] 00 :00 daily. Medical Branch losartan 50 2021-0 2021- No [id number] 50mg Take 1 [facility] mg tablet 05-04-15 tablet by ity of 00:00: 00:00 mouth 2 [place] 00 :00 (two) Medical times Branch daily. Magnesium Yes Take by [facility] 100 MG CAPS 3-21 mouth. [place] e 10:29: of 08 Medicin e Melatonin 2021-0 Yes Take by [facility] 10 MG TABS 3-21 mouth. Maria [place] 10:29: of 08 Medicin e furosemide 2022-0 [...] by ity of tablet 00:00: 00:00 mouth [place] 00 :00 daily. Medical Branch furosemide 2021- No 40mg Take 1 [facility] ers 40 mg 3-17 10-21 tablet by ity of tablet 00:00: 00:00 mouth [place] 00 :00 daily. Medical Branch furosemide 2021- No 40mg Take 1 [facility] ers 40 mg 3-17 10-21 tablet by ity of tablet 00:00: 00:00 mouth [place] 00 :00 daily. Medical Branch ATORVASTA 2020-02 Yes [id number] 40mg TAKE 1 [facility] N 40 mg 2-13 TABLET BY ity of tablet 00:00: MOUTH AT [place] [facility] 2020-02 Yes [id number] 40mg TAKE 1 [facility] N 40 mg 2-13 TABLET BY ity of tablet 00:00: MOUTH AT [place] [facility] [facility] 2020-02 Yes [id number] 40mg TAKE 1 [facility] N 40 mg 2-13 TABLET BY ity of tablet 00:00: MOUTH AT [place] [facility] 2020-02 Yes [id number] 40mg TAKE 1 [facility] N 40 mg 2-13 TABLET BY ity of tablet 00:00: MOUTH AT [place] [facility] 2020-02 Yes [id number] 40mg TAKE 1 [facility] N 40 mg 2-13 TABLET BY ity of tablet 00:00: MOUTH AT [place] [facility] 2020-02 Yes [id number] 40mg TAKE 1 [facility] N 40 mg 2-13 TABLET BY ity of tablet 00:00: MOUTH AT [place] [facility] 2020-02 Yes [id number] 40mg TAKE 1 [facility] N 40 mg 2-13 TABLET BY ity of tablet 00:00: MOUTH AT [place] [facility] 2020-02 Yes [id number] 40mg TAKE 1 [facility] N 40 mg 2-13 TABLET BY ity of tablet 00:00: MOUTH AT [place] [facility] 2020-02 Yes [id number] 40mg TAKE 1 [facility] N 40 mg 2-13 TABLET BY ity of tablet 00:00: MOUTH AT [address] [facility] 2020-02 Yes [id number] 40mg TAKE 1 [facility] N 40 mg 2-13 TABLET BY ity of tablet 00:00: MOUTH AT [address] 2020-02 Yes [id number] 40mg TAKE 1 [facility] N 40 mg 2-13 TABLET BY ity of tablet 00:00: MOUTH AT [address] 2020-02 Yes [id number] 40mg TAKE 1 [facility] N 40 mg 2-13 TABLET BY ity of tablet 00:00: MOUTH AT [address] 2020-02 Yes [id number] 40mg TAKE 1 [facility] N 40 mg 2-13 TABLET BY ity of tablet 00:00: MOUTH AT [address] 2020-02 Yes [id number] 40mg TAKE 1 [facility] N 40 mg 2-13 TABLET BY ity of tablet 00:00: MOUTH AT [address] 2020-02- No [id number] 40mg TAKE 1 [facility] N 40 mg 2-13 10-21 TABLET BY ity of tablet 00:00: 00:00 MOUTH AT [place] 00 :00 [facility] 2020-02- No [id number] 40mg TAKE 1 [facility] N 40 mg 2-13 10-21 TABLET BY ity of tablet 00:00: 00:00 MOUTH AT [place] 00 :00 [facility] 2020-02- No [id number] 40mg TAKE 1 [facility] N 40 mg 2-13 10-21 TABLET BY ity of tablet 00:00: 00:00 MOUTH AT [place] 00 :00 [facility] azelastine 2020-02 Yes [id number] 1{spray Use 1 [facility] 137 mcg 2-02 } [place] in ity of (0.1 %) 00:00: each [place] nasal spray 00 nostril 2 Med ical (two) Branch times daily. Use in each nostril as directed fluticasone 2020-02 Yes [id number] 2{puff} Inhale 2 [facility] propionate 2-02 Puffs 2 ity of (FLOVENT 00:00: (two) [place] HFA) 44 00 times Medical mcg/actuati daily. Branch on inhaler Rinse mouth after each use. azelastine 2020-02 Yes [id number] 1{spray Use 1 [facility] 137 mcg 2-02 } [place] in ity of (0.1 %) 00:00: each [place] nasal spray 00 nostril 2 Med ical (two) Branch times daily. Use in each nostril as directed fluticasone 2020-02 Yes [id number] 2{puff} Inhale 2 [facility] propionate 2-02 Puffs 2 ity of (FLOVENT 00:00: (two) [place] HFA) 44 00 times Medical mcg/actuati daily. Branch on inhaler Rinse mouth after each use. azelastine 2020-02 Yes [id number] 1{spray Use 1 [facility] 137 mcg 2-02 } [place] in ity of (0.1 %) 00:00: each [place] nasal spray 00 nostril 2 Med ical (two) Branch times daily. Use in each nostril as directed fluticasone 2020-02 Yes [id number] 2{puff} Inhale 2 [facility] propionate 2-02 Puffs 2 ity of (FLOVENT 00:00: (two) [place] HFA) 44 00 times Medical mcg/actuati daily. Branch on inhaler Rinse mouth after each use. azelastine 2020-02 Yes [id number] 1{spray Use 1 [facility] 137 mcg 2-02 } [place] in ity of (0.1 %) 00:00: each [place] nasal spray 00 nostril 2 Med ical (two) Branch times daily. Use in each nostril as directed fluticasone 2020-02 Yes [id number] 2{puff} Inhale 2 [facility] propionate 2-02 Puffs 2 ity of (FLOVENT 00:00: (two) [place] HFA) 44 00 times Medical mcg/actuati daily. Branch on inhaler Rinse mouth after each use. azelastine 2020-02 Yes [id number] 1{spray Use 1 [facility] 137 mcg 2-02 } [place] in ity of (0.1 %) 00:00: each [place] nasal spray 00 nostril 2 Med ical (two) Branch times daily. Use in each nostril as directed fluticasone 2020-02 Yes [id number] 2{puff} Inhale 2 [facility] propionate 2-02 Puffs 2 ity of (FLOVENT 00:00: (two) [place] HFA) 44 00 times Medical mcg/actuati daily. Branch on inhaler Rinse mouth after each use. azelastine 2020-02 Yes [id number] 1{spray Use 1 [facility] 137 mcg 2-02 } [place] in ity of (0.1 %) 00:00: each [place] nasal spray 00 nostril 2 Med ical (two) Branch times daily. Use in each nostril as directed fluticasone 2020-02 Yes [id number] 2{puff} Inhale 2 [facility] propionate 2-02 Puffs 2 ity of (FLOVENT 00:00: (two) [place] HFA) 44 00 times Medical mcg/actuati daily. Branch on inhaler Rinse mouth after each use. azelastine 2020-02 Yes [id number] 1{spray Use 1 [facility] 137 mcg 2-02 } [place] in ity of (0.1 %) 00:00: each [place] nasal spray 00 nostril 2 Med ical (two) Branch times daily. Use in each nostril as directed fluticasone 2020-02 Yes [id number] 2{puff} Inhale 2 [facility] propionate 2-02 Puffs 2 ity of (FLOVENT 00:00: (two) [place] HFA) 44 00 times Medical mcg/actuati daily. Branch on inhaler Rinse mouth after each use. azelastine 2020-02 Yes [id number] 1{spray Use 1 [facility] 137 mcg 2-02 } [place] in ity of (0.1 %) 00:00: each [place] nasal spray 00 nostril 2 Med ical (two) Branch times daily. Use in each nostril as directed fluticasone 2020-02 Yes [id number] 2{puff} Inhale 2 [facility] propionate 2-02 Puffs 2 ity of (FLOVENT 00:00: (two) [place] HFA) 44 00 times Medical mcg/actuati daily. Branch on inhaler Rinse mouth after each use. azelastine 2020-02 Yes [id number] 1{spray Use 1 [facility] 137 mcg 2-02 } [place] in ity of (0.1 %) 00:00: each [place] nasal spray 00 nostril 2 Med ical (two) Branch times daily. Use in each nostril as directed fluticasone 2020-02 Yes [id number] 2{puff} Inhale 2 [facility] propionate 2-02 Puffs 2 ity of (FLOVENT 00:00: (two) [place] HFA) 44 00 times Medical mcg/actuati daily. Branch on inhaler Rinse mouth after each use. azelastine 2020-02 Yes [id number] 1{spray Use 1 [facility] 137 mcg 2-02 } [place] in ity of (0.1 %) 00:00: each [place] nasal spray 00 nostril 2 Med ical (two) Branch times daily. Use in each nostril as directed fluticasone 2020-02 Yes [id number] 2{puff} Inhale 2 [facility] propionate 2-02 Puffs 2 ity of (FLOVENT 00:00: (two) [place] HFA) 44 00 times Medical mcg/actuati daily. Branch on inhaler Rinse mouth after each use. azelastine 2020-02 Yes [id number] 1{spray Use 1 [facility] 137 mcg 2-02 } [place] in ity of (0.1 %) 00:00: each [place] nasal spray 00 nostril 2 Med ical (two) Branch times daily. Use in each nostril as directed fluticasone 2020-02 Yes [id number] 2{puff} Inhale 2 [facility] propionate 2-02 Puffs 2 ity of (FLOVENT 00:00: (two) [place] HFA) 44 00 times Medical mcg/actuati daily. Branch on inhaler Rinse mouth after each use. azelastine 2020-02 Yes [id number] 1{spray Use 1 [facility] 137 mcg 2-02 } [place] in ity of (0.1 %) 00:00: each [place] nasal spray 00 nostril 2 Med ical (two) Branch times daily. Use in each nostril as directed fluticasone 2020-02 Yes [id number] 2{puff} Inhale 2 [facility] propionate 2-02 Puffs 2 ity of (FLOVENT 00:00: (two) [place] HFA) 44 00 times Medical mcg/actuati daily. Branch on inhaler Rinse mouth after each use. azelastine 2020-02 Yes [id number] 1{spray Use 1 [facility] 137 mcg 2-02 } [place] in ity of (0.1 %) 00:00: each [place] nasal spray 00 nostril 2 Med ical (two) Branch times daily. Use in each nostril as directed fluticasone 2020-02 Yes [id number] 2{puff} Inhale 2 [facility] propionate 2-02 Puffs 2 ity of (FLOVENT 00:00: (two) [place] HFA) 44 00 times Medical mcg/actuati daily. Branch on inhaler Rinse mouth after each use. azelastine 2020-02 Yes [id number] 1{spray Use 1 [facility] 137 mcg 2-02 } [place] in ity of (0.1 %) 00:00: each [place] nasal spray 00 nostril 2 Med ical (two) Branch times daily. Use in each nostril as directed fluticasone 2020-02 Yes [id number] 2{puff} Inhale 2 [facility] propionate 2-02 Puffs 2 ity of (FLOVENT 00:00: (two) [place] HFA) 44 00 times Medical mcg/actuati daily. Branch on inhaler Rinse mouth after each use. azelastine 2020-02 Yes [id number] 1{spray Use 1 [facility] 137 mcg 2-02 } [place] in ity of (0.1 %) 00:00: each [place] nasal spray 00 nostril 2 Med ical (two) Branch times daily. Use in each nostril as directed fluticasone 2020-02 Yes [id number] 2{puff} Inhale 2 [facility] propionate 2-02 Puffs 2 ity of (FLOVENT 00:00: (two) [place] HFA) 44 00 times Medical mcg/actuati daily. Branch on inhaler Rinse mouth after each use. azelastine 2020-02 Yes [id number] 1{spray Use 1 [facility] 137 mcg 2-02 } [place] in ity of (0.1 %) 00:00: each [place] nasal spray 00 nostril 2 Med ical (two) Branch times daily. Use in each nostril as directed fluticasone 2020-02 Yes [id number] 2{puff} Inhale 2 [facility] propionate 2-02 Puffs 2 ity of (FLOVENT 00:00: (two) [place] HFA) 44 00 times Medical mcg/actuati daily. Branch on inhaler Rinse mouth after each use. azelastine 2020-02 Yes [id number] 1{spray Use 1 [facility] 137 mcg 2-02 } [place] in ity of (0.1 %) 00:00: each [place] nasal spray 00 nostril 2 Med ical (two) Branch times daily. Use in each nostril as directed fluticasone 2020-02 Yes [id number] 2{puff} Inhale 2 [facility] propionate 2-02 Puffs 2 ity of (FLOVENT 00:00: (two) [place] HFA) 44 00 times Medical mcg/actuati daily. Branch on inhaler Rinse mouth after each use. azelastine 2020-02 Yes [id number] 1{spray Use 1 [facility] 137 mcg 2-02 } [place] in ity of (0.1 %) 00:00: each [place] nasal spray 00 nostril 2 Med ical (two) Branch times daily. Use in each nostril as directed fluticasone 2020-02 Yes [id number] 2{puff} Inhale 2 [facility] propionate 2-02 Puffs 2 ity of (FLOVENT 00:00: (two) [place] HFA) 44 00 times Medical mcg/actuati daily. Branch on inhaler Rinse mouth after each use. azelastine 2020-02 Yes [id number] 1{spray Use 1 [facility] 137 mcg 2-02 } [place] in ity of (0.1 %) 00:00: each [place] nasal spray 00 nostril 2 Med ical (two) Branch times daily. Use in each nostril as directed fluticasone 2020-02 Yes [id number] 2{puff} Inhale 2 [facility] propionate 2-02 Puffs 2 ity of (FLOVENT 00:00: (two) [place] HFA) 44 00 times Medical mcg/actuati daily. Branch on inhaler Rinse mouth after each use. azelastine 2020-02 Yes [id number] 1{spray Use 1 [facility] 137 mcg 2-02 } [place] in ity of (0.1 %) 00:00: each [place] nasal spray 00 nostril 2 Med ical (two) Branch times daily. Use in each nostril as directed fluticasone 2020-02 Yes [id number] 2{puff} Inhale 2 [facility] propionate 2-02 Puffs 2 ity of (FLOVENT 00:00: (two) [place] HFA) 44 00 times Medical mcg/actuati daily. Branch on inhaler Rinse mouth after each use. azelastine 2020-02 Yes [id number] 1{spray Use 1 [facility] 137 mcg 2-02 } [place] in ity of (0.1 %) 00:00: each [place] nasal spray 00 nostril 2 Med ical (two) Branch times daily. Use in each nostril as directed fluticasone 2020-02 Yes [id number] 2{puff} Inhale 2 [facility] propionate 2-02 Puffs 2 ity of (FLOVENT 00:00: (two) [place] HFA) 44 00 times Medical mcg/actuati daily. Branch on inhaler Rinse mouth after each use. azelastine 2020-02 Yes [id number] 1{spray Use 1 [facility] 137 mcg 2-02 } [place] in ity of (0.1 %) 00:00: each [place] nasal spray 00 nostril 2 Med ical (two) Branch times daily. Use in each nostril as directed fluticasone 2020-02 Yes [id number] 2{puff} Inhale 2 [facility] propionate 2-02 Puffs 2 ity of (FLOVENT 00:00: (two) [place] HFA) 44 00 times Medical mcg/actuati daily. Branch on inhaler Rinse mouth after each use. azelastine 2020-02 Yes [id number] 1{spray Use 1 [facility] 137 mcg 2-02 } [place] in ity of (0.1 %) 00:00: each [place] nasal spray 00 nostril 2 Med ical (two) Branch times daily. Use in each nostril as directed fluticasone 2020-02 Yes [id number] 2{puff} Inhale 2 [facility] propionate 2-02 Puffs 2 ity of (FLOVENT 00:00: (two) [place] HFA) 44 00 times Medical mcg/actuati daily. Branch on inhaler Rinse mouth after each use. azelastine 2020-02 Yes [id number] 1{spray Use 1 [facility] 137 mcg 2-02 } [place] in ity of (0.1 %) 00:00: each [place] nasal spray 00 nostril 2 Med ical (two) Branch times daily. Use in each nostril as directed fluticasone 2020-02 Yes [id number] 2{puff} Inhale 2 [facility] propionate 2-02 Puffs 2 ity of (FLOVENT 00:00: (two) [place] HFA) 44 00 times Medical mcg/actuati daily. Branch on inhaler Rinse mouth after each use. azelastine 2020-02 Yes [id number] 1{spray Use 1 [facility] 137 mcg 2-02 } [place] in ity of (0.1 %) 00:00: each [place] nasal spray 00 nostril 2 Med ical (two) Branch times daily. Use in each nostril as directed fluticasone 2020-02 Yes [id number] 2{puff} Inhale 2 [facility] propionate 2-02 Puffs 2 ity of (FLOVENT 00:00: (two) [place] HFA) 44 00 times Medical mcg/actuati daily. Branch on inhaler Rinse mouth after each use. azelastine 2020-02 Yes [id number] 1{spray Use 1 [facility] 137 mcg 2-02 } [place] in ity of (0.1 %) 00:00: each [place] nasal spray 00 nostril 2 Med ical (two) Branch times daily. Use in each nostril as directed fluticasone 2020-02 Yes [id number] 2{puff} Inhale 2 [facility] propionate 2-02 Puffs 2 ity of (FLOVENT 00:00: (two) [place] HFA) 44 00 times Medical mcg/actuati daily. Branch on inhaler Rinse mouth after each use. azelastine 2020-02 Yes [id number] 1{spray Use 1 [facility] 137 mcg 2-02 } [place] in ity of (0.1 %) 00:00: each [place] nasal spray 00 nostril 2 Med ical (two) Branch times daily. Use in each nostril as directed fluticasone 2020-02 Yes [id number] 2{puff} Inhale 2 [facility] propionate 2-02 Puffs 2 ity of (FLOVENT 00:00: (two) [place] HFA) 44 00 times Medical mcg/actuati daily. Branch on inhaler Rinse mouth after each use. azelastine 2020-02 Yes [id number] 1{spray Use 1 [facility] 137 mcg 2-02 } [place] in ity of (0.1 %) 00:00: each [place] nasal spray 00 nostril 2 Med ical (two) Branch times daily. Use in each nostril as directed fluticasone 2020-02 Yes [id number] 2{puff} Inhale 2 [facility] propionate 2-02 Puffs 2 ity of (FLOVENT 00:00: (two) [place] HFA) 44 00 times Medical mcg/actuati daily. Branch on inhaler Rinse mouth after each use. azelastine 2020-02 Yes [id number] 1{spray Use 1 [facility] 137 mcg 2-02 } [place] in ity of (0.1 %) 00:00: each [place] nasal spray 00 nostril 2 Med ical (two) Branch times daily. Use in each nostril as directed fluticasone 2020-02 Yes [id number] 2{puff} Inhale 2 [facility] propionate 2-02 Puffs 2 ity of (FLOVENT 00:00: (two) [place] HFA) 44 00 times Medical mcg/actuati daily. Branch on inhaler Rinse mouth after each use. azelastine 2020-02 Yes [id number] 1{spray Use 1 [facility] 137 mcg 2-02 } [place] in ity of (0.1 %) 00:00: each [place] nasal spray 00 nostril 2 Med ical (two) Branch times daily. Use in each nostril as directed fluticasone 2020-02 Yes [id number] 2{puff} Inhale 2 [facility] propionate 2-02 Puffs 2 ity of (FLOVENT 00:00: (two) [place] HFA) 44 00 times Medical mcg/actuati daily. Branch on inhaler Rinse mouth after each use. azelastine 2020-02 Yes [id number] 1{spray Use 1 [facility] 137 mcg 2-02 } [place] in ity of (0.1 %) 00:00: each [place] nasal spray 00 nostril 2 Med ical (two) Branch times daily. Use in each nostril as directed fluticasone 2020-02 Yes [id number] 2{puff} Inhale 2 [facility] propionate 2-02 Puffs 2 ity of (FLOVENT 00:00: (two) [place] HFA) 44 00 times Medical mcg/actuati daily. Branch on inhaler Rinse mouth after each use. azelastine 2020-02 Yes [id number] 1{spray Use 1 [facility] 137 mcg 2-02 } [place] in ity of (0.1 %) 00:00: each [place] nasal spray 00 nostril 2 Med ical (two) Branch times daily. Use in each nostril as directed fluticasone 2020-02 Yes [id number] 2{puff} Inhale 2 [facility] propionate 2-02 Puffs 2 ity of (FLOVENT 00:00: (two) [place] HFA) 44 00 times Medical mcg/actuati daily. Branch on inhaler Rinse mouth after each use. azelastine 2020-02 Yes [id number] 1{spray Use 1 [facility] 137 mcg 2-02 } [place] in ity of (0.1 %) 00:00: each [place] nasal spray 00 nostril 2 Med ical (two) Branch times daily. Use in each nostril as directed fluticasone 2020-02 Yes [id number] 2{puff} Inhale 2 [facility] propionate 2-02 Puffs 2 ity of (FLOVENT 00:00: (two) [place] HFA) 44 00 times Medical mcg/actuati daily. Branch on inhaler Rinse mouth after each use. azelastine 2020-02 Yes [id number] 1{spray Use 1 [facility] 137 mcg 2-02 } [place] in ity of (0.1 %) 00:00: each [place] nasal spray 00 nostril 2 Med ical (two) Branch times daily. Use in each nostril as directed fluticasone 2020-02 Yes [id number] 2{puff} Inhale 2 [facility] propionate 2-02 Puffs 2 ity of (FLOVENT 00:00: (two) [place] HFA) 44 00 times Medical mcg/actuati daily. Branch on inhaler Rinse mouth after each use. azelastine 2020-02 Yes [id number] 1{spray Use 1 [facility] 137 mcg 2-02 } [place] in ity of (0.1 %) 00:00: each [place] nasal spray 00 nostril 2 Med ical (two) Branch times daily. Use in each nostril as directed fluticasone 2020-02 Yes [id number] 2{puff} Inhale 2 [facility] propionate 2-02 Puffs 2 ity of (FLOVENT 00:00: (two) [place] HFA) 44 00 times Medical mcg/actuati daily. Branch on inhaler Rinse mouth after each use. azelastine 2020-02 Yes [id number] 1{spray Use 1 [facility] 137 mcg 2-02 } [place] in ity of (0.1 %) 00:00: each [place] nasal spray 00 nostril 2 Med ical (two) Branch times daily. Use in each nostril as directed fluticasone 2020-02 Yes [id number] 2{puff} Inhale 2 [facility] propionate 2-02 Puffs 2 ity of (FLOVENT 00:00: (two) [place] HFA) 44 00 times Medical mcg/actuati daily. Branch on inhaler Rinse mouth after each use. azelastine 2020-02 Yes [id number] 1{spray Use 1 [facility] 137 mcg 2-02 } [place] in ity of (0.1 %) 00:00: each [place] nasal spray 00 nostril 2 Med ical (two) Branch times daily. Use in each nostril as directed fluticasone 2020-02 Yes [id number] 2{puff} Inhale 2 [facility] propionate 2-02 Puffs 2 ity of (FLOVENT 00:00: (two) [place] HFA) 44 00 times Medical mcg/actuati daily. Branch on inhaler Rinse mouth after each use. azelastine 2020-02 Yes [id number] 1{spray Use 1 [facility] 137 mcg 2-02 } [place] in ity of (0.1 %) 00:00: each [place] nasal spray 00 nostril 2 Med ical (two) Branch times daily. Use in each nostril as directed fluticasone 2020-02 Yes [id number] 2{puff} Inhale 2 [facility] propionate 2-02 Puffs 2 ity of (FLOVENT 00:00: (two) [place] HFA) 44 00 times Medical mcg/actuati daily. Branch on inhaler Rinse mouth after each use. azelastine 2020-02 Yes [id number] 1{spray Use 1 [facility] 137 mcg 2-02 } [place] in ity of (0.1 %) 00:00: each [place] nasal spray 00 nostril 2 Med ical (two) Branch times daily. Use in each nostril as directed fluticasone 2020-02 Yes [id number] 2{puff} Inhale 2 [facility] propionate 2-02 Puffs 2 ity of (FLOVENT 00:00: (two) [place] HFA) 44 00 times Medical mcg/actuati daily. Branch on inhaler Rinse mouth after each use. azelastine 2020-02 Yes [id number] 1{spray Use 1 [facility] 137 mcg 2-02 } [place] in ity of (0.1 %) 00:00: each [place] nasal spray 00 nostril 2 Med ical (two) Branch times daily. Use in each nostril as directed fluticasone 2020-02 Yes [id number] 2{puff} Inhale 2 [facility] propionate 2-02 Puffs 2 ity of (FLOVENT 00:00: (two) [place] HFA) 44 00 times Medical mcg/actuati daily. Branch on inhaler Rinse mouth after each use. azelastine 2020-02 Yes [id number] 1{spray Use 1 [facility] 137 mcg 2-02 } [place] in ity of (0.1 %) 00:00: each [place] nasal spray 00 nostril 2 Med ical (two) Branch times daily. Use in each nostril as directed fluticasone 2020-02 Yes [id number] 2{puff} Inhale 2 [facility] propionate 2-02 Puffs 2 ity of (FLOVENT 00:00: (two) [place] HFA) 44 00 times Medical mcg/actuati daily. Branch on inhaler Rinse mouth after each use. azelastine 2020-02 Yes [id number] 1{spray Use 1 [facility] 137 mcg 2-02 } [place] in ity of (0.1 %) 00:00: each [place] nasal spray 00 nostril 2 Med ical (two) Branch times daily. Use in each nostril as directed fluticasone 2020-02 Yes [id number] 2{puff} Inhale 2 [facility] propionate 2-02 Puffs 2 ity of (FLOVENT 00:00: (two) [place] HFA) 44 00 times Medical mcg/actuati daily. Branch on inhaler Rinse mouth after each use. azelastine 2020-02 Yes [id number] 1{spray Use 1 [facility] 137 mcg 2-02 } [place] in ity of (0.1 %) 00:00: each [place] nasal spray 00 nostril 2 Med ical (two) Branch times daily. Use in each nostril as directed fluticasone 2020-02 Yes [id number] 2{puff} Inhale 2 [facility] propionate 2-02 Puffs 2 ity of (FLOVENT 00:00: (two) [place] HFA) 44 00 times Medical mcg/actuati daily. Branch on inhaler Rinse mouth after each use. azelastine 2020-02 Yes [id number] 1{spray Use 1 [facility] 137 mcg 2-02 } [place] in ity of (0.1 %) 00:00: each [place] nasal spray 00 nostril 2 Med ical (two) Branch times daily. Use in each nostril as directed fluticasone 2020-02 Yes [id number] 2{puff} Inhale 2 [facility] propionate 2-02 Puffs 2 ity of (FLOVENT 00:00: (two) [place] HFA) 44 00 times Medical mcg/actuati daily. Branch on inhaler Rinse mouth after each use. azelastine 2020-02 Yes [id number] 1{spray Use 1 [facility] 137 mcg 2-02 } [place] in ity of (0.1 %) 00:00: each [place] nasal spray 00 nostril 2 Med ical (two) Branch times daily. Use in each nostril as directed fluticasone 2020-02 Yes [id number] 2{puff} Inhale 2 [facility] propionate 2-02 Puffs 2 ity of (FLOVENT 00:00: (two) [place] HFA) 44 00 times Medical mcg/actuati daily. Branch on inhaler Rinse mouth after each use. azelastine 2020-02 Yes [id number] 1{spray Use 1 [facility] 137 mcg 2-02 } [place] in ity of (0.1 %) 00:00: each [place] nasal spray 00 nostril 2 Med ical (two) Branch times daily. Use in each nostril as directed fluticasone 2020-02 Yes [id number] 2{puff} Inhale 2 [facility] propionate 2-02 Puffs 2 ity of (FLOVENT 00:00: (two) [place] HFA) 44 00 times Medical mcg/actuati daily. Branch on inhaler Rinse mouth after each use. mirtazapine 2020-022- No [id number] 7.5mg Take 1 [facility] 7.5 mg 2-02 07-15 tablet by ity of tablet 00:00: 00:00 mouth at [place] 00 :00 bedtime. Medical Branch Magnesium 2020-02 Yes Take by [facility] 100 MG CAPS 1-10 mouth. [facility] delio 15:46: of Medicin e Melatonin 2020-02 Yes Take by [facility] 10 MG TABS 1-10 mouth. [place] 15:46: of 22 Medicin e oxybutynin 2020-02 [...] or (DITROPAN 1-10 09-19 Tablet by Kristine ege XL) 10 MG 00:00: 00:00 mouth of [place] tablet 00 :00 daily. Medicin e albuterol Yes [id number] 2{puff} Inhale 2 Univers (PROAIR 9-03 Puffs ity of HFA) 90 00:00: every 6 [place] mcg/actuati 00 (six) Medical on inhaler hours as Branc h needed for Wheezing or Shortness of Breath. albuterol Yes [id number] 2{puff} Inhale 2 [facility] (PROAIR 9-03 Puffs ity of HFA) 90 00:00: every 6 [place] mcg/actuati 00 (six) Medical on inhaler hours as Branc h needed for Wheezing or Shortness of Breath. albuterol Yes [id number] 2{puff} Inhale 2 [facility] (PROAIR 9-03 Puffs ity of HFA) 90 00:00: every 6 [place] mcg/actuati 00 (six) Medical on inhaler hours as Branc h needed for Wheezing or Shortness of Breath. albuterol Yes [id number] 2{puff} Inhale 2 [facility] (PROAIR 9-03 Puffs ity of HFA) 90 00:00: every 6 [place] mcg/actuati 00 (six) Medical on inhaler hours as Branc h needed for Wheezing or Shortness of Breath. albuterol Yes [id number] 2{puff} Inhale 2 [facility] (PROAIR 9-03 Puffs ity of HFA) 90 00:00: every 6 [place] mcg/actuati 00 (six) Medical on inhaler hours as Branc h needed for Wheezing or Shortness of Breath. albuterol Yes [id number] 2{puff} Inhale 2 [facility] (PROAIR 9-03 Puffs ity of HFA) 90 00:00: every 6 [place] mcg/actuati 00 (six) Medical on inhaler hours as Branc h needed for Wheezing or Shortness of Breath. albuterol Yes [id number] 2{puff} Inhale 2 [facility] (PROAIR 9-03 Puffs ity of HFA) 90 00:00: every 6 [place] mcg/actuati 00 (six) Medical on inhaler hours as Branc h needed for Wheezing or Shortness of Breath. albuterol Yes [id number] 2{puff} Inhale 2 [facility] (PROAIR 9-03 Puffs ity of HFA) 90 00:00: every 6 [place] mcg/actuati 00 (six) Medical on inhaler hours as Branc h needed for Wheezing or Shortness of Breath. albuterol Yes [id number] 2{puff} Inhale 2 [facility] (PROAIR 9-03 Puffs ity of HFA) 90 00:00: every 6 [place] mcg/actuati 00 (six) Medical on inhaler hours as Branc h needed for Wheezing or Shortness of Breath. albuterol Yes [id number] 2{puff} Inhale 2 [facility] (PROAIR 9-03 Puffs ity of HFA) 90 00:00: every 6 [place] mcg/actuati 00 (six) Medical on inhaler hours as Branc h needed for Wheezing or Shortness of Breath. albuterol Yes [id number] 2{puff} Inhale 2 [facility] (PROAIR 9-03 Puffs ity of HFA) 90 00:00: every 6 [place] mcg/actuati 00 (six) Medical on inhaler hours as Branc h needed for Wheezing or Shortness of Breath. albuterol Yes [id number] 2{puff} Inhale 2 [facility] (PROAIR 9-03 Puffs ity of HFA) 90 00:00: every 6 [place] mcg/actuati 00 (six) Medical on inhaler hours as Branc h needed for Wheezing or Shortness of Breath. albuterol Yes [id number] 2{puff} Inhale 2 [facility] (PROAIR 9-03 Puffs ity of HFA) 90 00:00: every 6 [place] mcg/actuati 00 (six) Medical on inhaler hours as Branc h needed for Wheezing or Shortness of Breath. albuterol Yes [id number] 2{puff} Inhale 2 [facility] (PROAIR 9-03 Puffs ity of HFA) 90 00:00: every 6 [place] mcg/actuati 00 (six) Medical on inhaler hours as Branc h needed for Wheezing or Shortness of Breath. albuterol Yes [id number] 2{puff} Inhale 2 [facility] (PROAIR 9-03 Puffs ity of HFA) 90 00:00: every 6 [place] mcg/actuati 00 (six) Medical on inhaler hours as Branc h needed for Wheezing or Shortness of Breath. albuterol Yes [id number] 2{puff} Inhale 2 [facility] (PROAIR 9-03 Puffs ity of HFA) 90 00:00: every 6 [place] mcg/actuati 00 (six) Medical on inhaler hours as Branc h needed for Wheezing or Shortness of Breath. albuterol Yes [id number] 2{puff} Inhale 2 [facility] (PROAIR 9-03 Puffs ity of HFA) 90 00:00: every 6 [place] mcg/actuati 00 (six) Medical on inhaler hours as Branc h needed for Wheezing or Shortness of Breath. albuterol Yes [id number] 2{puff} Inhale 2 [facility] (PROAIR 9-03 Puffs ity of HFA) 90 00:00: every 6 [place] mcg/actuati 00 (six) Medical on inhaler hours as Branc h needed for Wheezing or Shortness of Breath. albuterol Yes [id number] 2{puff} Inhale 2 [facility] (PROAIR 9-03 Puffs ity of HFA) 90 00:00: every 6 [place] mcg/actuati 00 (six) Medical on inhaler hours as Branc h needed for Wheezing or Shortness of Breath. albuterol 0 Yes [id number] 2{puff} Inhale 2 [facility] (PROAIR 9-03 Puffs ity of HFA) 90 00:00: every 6 [place] mcg/actuati 00 (six) Medical on inhaler hours as Branc h needed for Wheezing or Shortness of Breath. albuterol 0 Yes [id number] 2{puff} Inhale 2 [facility] (PROAIR 9-03 Puffs ity of HFA) 90 00:00: every 6 [place] mcg/actuati 00 (six) Medical on inhaler hours as Branc h needed for Wheezing or Shortness of Breath. albuterol Yes [id number] 2{puff} Inhale 2 [facility] (PROAIR 9-03 Puffs ity of HFA) 90 00:00: every 6 [place] mcg/actuati 00 (six) Medical on inhaler hours as Branc h needed for Wheezing or Shortness of Breath. albuterol Yes [id number] 2{puff} Inhale 2 [facility] (PROAIR 9-03 Puffs ity of HFA) 90 00:00: every 6 [place] mcg/actuati 00 (six) Medical on inhaler hours as Branc h needed for Wheezing or Shortness of Breath. albuterol 0 Yes [id number] 2{puff} Inhale 2 [facility] (PROAIR 9-03 Puffs ity of HFA) 90 00:00: every 6 [place] mcg/actuati 00 (six) Medical on inhaler hours as Branc h needed for Wheezing or Shortness of Breath. albuterol 0 Yes [id number] 2{puff} Inhale 2 [facility] (PROAIR 9-03 Puffs ity of HFA) 90 00:00: every 6 [place] mcg/actuati 00 (six) Medical on inhaler hours as Branc h needed for Wheezing or Shortness of Breath. albuterol 0 Yes [id number] 2{puff} Inhale 2 [facility] (PROAIR 9-03 Puffs ity of HFA) 90 00:00: every 6 [place] mcg/actuati 00 (six) Medical on inhaler hours as Branc h needed for Wheezing or Shortness of Breath. albuterol Yes [id number] 2{puff} Inhale 2 [facility] (PROAIR 9-03 Puffs ity of HFA) 90 00:00: every 6 [place] mcg/actuati 00 (six) Medical on inhaler hours as Branc h needed for Wheezing or Shortness of Breath. albuterol Yes [id number] 2{puff} Inhale 2 [facility] (PROAIR 9-03 Puffs ity of HFA) 90 00:00: every 6 [place] mcg/actuati 00 (six) Medical on inhaler hours as Branc h needed for Wheezing or Shortness of Breath. albuterol Yes [id number] 2{puff} Inhale 2 [facility] (PROAIR 9-03 Puffs ity of HFA) 90 00:00: every 6 [place] mcg/actuati 00 (six) Medical on inhaler hours as Branc h needed for Wheezing or Shortness of Breath. albuterol Yes [id number] 2{puff} Inhale 2 [facility] (PROAIR 9-03 Puffs ity of HFA) 90 00:00: every 6 [place] mcg/actuati 00 (six) Medical on inhaler hours as Branc h needed for Wheezing or Shortness of Breath. albuterol Yes [id number] 2{puff} Inhale 2 [facility] (PROAIR 9-03 Puffs ity of HFA) 90 00:00: every 6 [place] mcg/actuati 00 (six) Medical on inhaler hours as Branc h needed for Wheezing or Shortness of Breath. albuterol Yes [id number] 2{puff} Inhale 2 [facility] (PROAIR 9-03 Puffs ity of HFA) 90 00:00: every 6 [place] mcg/actuati 00 (six) Medical on inhaler hours as Branc h needed for Wheezing or Shortness of Breath. albuterol Yes [id number] 2{puff} Inhale 2 [facility] (PROAIR 9-03 Puffs ity of HFA) 90 00:00: every 6 [place] mcg/actuati 00 (six) Medical on inhaler hours as Branc h needed for Wheezing or Shortness of Breath. albuterol Yes [id number] 2{puff} Inhale 2 [facility] (PROAIR 9-03 Puffs ity of HFA) 90 00:00: every 6 [place] mcg/actuati 00 (six) Medical on inhaler hours as Branc h needed for Wheezing or Shortness of Breath. albuterol Yes [id number] 2{puff} Inhale 2 [facility] (PROAIR 9-03 Puffs ity of HFA) 90 00:00: every 6 [place] mcg/actuati 00 (six) Medical on inhaler hours as Branc h needed for Wheezing or Shortness of Breath. albuterol Yes [id number] 2{puff} Inhale 2 [facility] (PROAIR 9-03 Puffs ity of HFA) 90 00:00: every 6 [place] mcg/actuati 00 (six) Medical on inhaler hours as Branc h needed for Wheezing or Shortness of Breath. albuterol Yes [id number] 2{puff} Inhale 2 [facility] (PROAIR 9-03 Puffs ity of HFA) 90 00:00: every 6 [place] mcg/actuati 00 (six) Medical on inhaler hours as Branc h needed for Wheezing or Shortness of Breath. albuterol Yes [id number] 2{puff} Inhale 2 [facility] (PROAIR 9-03 Puffs ity of HFA) 90 00:00: every 6 [place] mcg/actuati 00 (six) Medical on inhaler hours as Branc h needed for Wheezing or Shortness of Breath. albuterol Yes [id number] 2{puff} Inhale 2 [facility] (PROAIR 9-03 Puffs ity of HFA) 90 00:00: every 6 [place] mcg/actuati 00 (six) Medical on inhaler hours as Branc h needed for Wheezing or Shortness of Breath. albuterol Yes [id number] 2{puff} Inhale 2 [facility] (PROAIR 9-03 Puffs ity of HFA) 90 00:00: every 6 [place] mcg/actuati 00 (six) Medical on inhaler hours as Branc h needed for Wheezing or Shortness of Breath. albuterol Yes [id number] 2{puff} Inhale 2 [facility] (PROAIR 9-03 Puffs ity of HFA) 90 00:00: every 6 [place] mcg/actuati 00 (six) Medical on inhaler hours as Branc h needed for Wheezing or Shortness of Breath. albuterol Yes [id number] 2{puff} Inhale 2 [facility] (PROAIR 9-03 Puffs ity of HFA) 90 00:00: every 6 [place] mcg/actuati 00 (six) Medical on inhaler hours as Branc h needed for Wheezing or Shortness of Breath. albuterol Yes [id number] 2{puff} Inhale 2 [facility] (PROAIR 9-03 Puffs ity of HFA) 90 00:00: every 6 [place] mcg/actuati 00 (six) Medical on inhaler hours as Branc h needed for Wheezing or Shortness of Breath. albuterol Yes [id number] 2{puff} Inhale 2 [facility] (PROAIR 9-03 Puffs ity of HFA) 90 00:00: every 6 [place] mcg/actuati 00 (six) Medical on inhaler hours as Branc h needed for Wheezing or Shortness of Breath. albuterol Yes [id number] 2{puff} Inhale 2 [facility] (PROAIR 9-03 Puffs ity of HFA) 90 00:00: every 6 [place] mcg/actuati 00 (six) Medical on inhaler hours as Branc h needed for Wheezing or Shortness of Breath. albuterol Yes [id number] 2{puff} Inhale 2 [facility] (PROAIR 9-03 Puffs ity of HFA) 90 00:00: every 6 [place] mcg/actuati 00 (six) Medical on inhaler hours as Branc h needed for Wheezing or Shortness of Breath. amLODIPine 2021- No [id number] 2.5mg Take 1 [facility] 2.5 mg 07-20 tablet by ity of tablet 00:00: 00:00 mouth [place] 00 :00 daily. Medical Branch amLODIPine 2021- No [id number] 2.5mg Take 1 [facility] 2.5 mg 07-20 tablet by ity of tablet 00:00: 00:00 mouth [place] 00 :00 daily. Medical Branch hydroCHLORO 0 2021- No [id number] 25mg Take 1 [facility] thiazide 25 07-20 07-15 tablet by it y of mg tablet 00:00: 00:00 mouth [place] 00 :00 daily. Medical Branch hydrochloro 2020- No 25mg Take 25 mg [facility] thiazide 3-22 03-22 by mouth Colleg [facility] (HYDRODIURI 16:58: 00:00 daily. of L) 25 MG 25 :00 Medicin tablet e Magnesium Yes Take by [facility] 100 MG CAPS 3-22 mouth. Colleg e 15:58: of 46 Medicin e Melatonin Yes Take by [facility] 10 MG TABS 3-22 mouth. [place] 15:58: of 46 Medicin e hydrochloro Yes [...] Medicin tablet e Potassium Yes Take 2 [facility] Citrate 3-22 tablets PO Colleg [...] CR tablet 00 daily. Medicin e hydrochloro 2021- No 25mg Take 1 [facility] thiazide 3-22 09-19 Tablet by [facility]le [facility] (HYDRODIURI 00:00: 00:00 mouth of L) 25 MG 00 :00 daily. Medicin tablet e Potassium 2021- No Take 2 [facility] Citrate 3-22 09-19 tablets PO [facility]le ge (UROCIT-K 00:00: 00:00 TID of 10) 10 MEQ 00 :00 Medicin (1080 MG) e TBCR oxybutynin 2020- No 10mg Take 1 [facility] (DITROPAN 3-22 11-10 Tablet by Kristine SHEPPARD) 10 MG 00:00: 00:00 mouth of CR tablet 00 :00 daily. Medicin e hydrochloro 2019-02 Yes 25mg Take 25 mg [facility] thiazide 1-23 by mouth [place] (HYDRODIURI 17:00: daily. of L) 25 MG 06 Medicin tablet e Magnesium 2019-02 Yes Take by [facility] 100 MG CAPS 1-23 mouth. [facility] e 17:00: of 06 Medicin e Melatonin 2019-02 Yes Take by [facility] 10 MG TABS 1-23 mouth. [place] 17:00: of 06 Medicin e Potassium 2019-02 Yes Take 2 [facility] Citrate 1-23 tablets PO Colleg e (UROCIT-K 00:00: TID of 10) 10 MEQ 00 Medicin (1080 MG) e TBCR Potassium 2019-02- No Take 2 [facility] Citrate 1-23 03-22 tablets PO Colle ge (UROCIT-K 00:00: 00:00 TID of 10) 10 MEQ 00 :00 Medicin (1080 MG) e TBCR levothyroxi 2019-02 Yes 25ug Take 25 [facility] ne 1-02 mcg by [place] (SYNTHROID) 00:00: mouth. of 25 MCG 00 Medicin tablet e levothyroxi 2019-02 Yes 25ug Take 25 [facility] ne 1-02 mcg by [facility] (SYNTHROID) 00:00: mouth. of 25 MCG 00 Medicin tablet e levothyroxi 2019-02- No 25ug Take 25 [facility] 1-02 11-10 mcg by [facility] (SYNTHROID) 00:00: 00:00 mouth. of 25 MCG 00 :00 Medicin tablet e aspirin 81 2019-02 Yes [id number] 81mg Take 1 [facility] mg chewable 0-01 [id number] tablet by i ty of tablet 00:00: mouth [place] 00 daily. Medical Branch aspirin 81 2020- Yes [id number] 81mg Take 1 [facility] mg chewable 0-01 [id number] tablet by i ty of tablet 00:00: mouth [place] 00 daily. Medical Branch aspirin 81 2019- Yes [id number] 81mg Take 1 [facility] mg chewable 0-01 [id number] tablet by i ty of tablet 00:00: mouth [place] 00 daily. Medical Branch aspirin 81 2019- Yes [id number] 81mg Take 1 [facility] mg chewable 0-01 [id number] tablet by i ty of tablet 00:00: mouth [place] 00 daily. Medical Branch aspirin 81 2019- Yes [id number] 81mg Take 1 [facility] mg chewable 0-01 [id number] tablet by i ty of tablet 00:00: mouth [place] 00 daily. Medical Branch aspirin 81 2019- Yes [id number] 81mg Take 1 [facility] mg chewable 0-01 [id number] tablet by i ty of tablet 00:00: mouth [place] 00 daily. Medical Branch aspirin 81 2019- Yes [id number] 81mg Take 1 [facility] mg chewable 0-01 [id number] tablet by i ty of tablet 00:00: mouth [place] 00 daily. Medical Branch aspirin 81 2020- Yes [id number] 81mg Take 1 [facility] mg chewable 0-01 [id number] tablet by i ty of tablet 00:00: mouth [place] 00 daily. Medical Branch aspirin 81 2020- Yes [id number] 81mg Take 1 [facility] mg chewable 0-01 [id number] tablet by i ty of tablet 00:00: mouth [place] 00 daily. [facility] aspirin 81 2020- Yes [id number] 81mg Take 1 [facility] mg chewable 0-01 [id number] tablet by i ty of tablet 00:00: mouth [place] 00 daily. Medical Branch aspirin 81 2020- Yes [id number] 81mg Take 1 [facility] mg chewable 0-01 [id number] tablet by i ty of tablet 00:00: mouth [place] 00 daily. Medical Branch aspirin 81 2020- Yes [id number] 81mg Take 1 [facility] mg chewable 0-01 [id number] tablet by i ty of tablet 00:00: mouth [place] 00 daily. Medical Branch aspirin 81 2020- Yes [id number] 81mg Take 1 [facility] mg chewable 0-01 [id number] tablet by i ty of tablet 00:00: mouth [place] 00 daily. Medical [facility] aspirin 81 2020- Yes [id number] 81mg Take 1 [facility] mg chewable 0-01 [id number] tablet by i ty of tablet 00:00: mouth [place] 00 daily. Medical Branch aspirin 81 2020- Yes [id number] 81mg Take 1 [facility] mg chewable 0-01 [id number] tablet by i ty of tablet 00:00: mouth [place] 00 daily. Medical Branch aspirin 81 2020- Yes [id number] 81mg Take 1 [facility] mg chewable 0-01 [id number] tablet by i ty of tablet 00:00: mouth [place] 00 daily. Medical Branch aspirin 81 2020- Yes [id number] 81mg Take 1 [facility] mg chewable 0-01 [id number] tablet by i ty of tablet 00:00: mouth [place] 00 daily. Medical Branch aspirin 81 2020- Yes [id number] 81mg Take 1 [facility] mg chewable 0-01 [id number] tablet by i ty of tablet 00:00: mouth [place] 00 daily. Medical Branch aspirin 81 2020- Yes [id number] 81mg Take 1 [facility] mg chewable 0-01 [id number] tablet by i ty of tablet 00:00: mouth [place] 00 daily. Medical [facility] aspirin 81 2020- Yes [id number] 81mg Take 1 [facility] mg chewable 0-01 [id number] tablet by i ty of tablet 00:00: mouth [place] 00 daily. Medical [facility] aspirin 81 2020- Yes [id number] 81mg Take 1 [facility] mg chewable 0-01 [id number] tablet by i ty of tablet 00:00: mouth [place] 00 daily. [facility] aspirin 81 2020- Yes [id number] 81mg Take 1 [facility] mg chewable 0-01 [id number] tablet by i ty of tablet 00:00: mouth [place] 00 daily. Medical Branch aspirin 81 2020- Yes [id number] 81mg Take 1 [facility] mg chewable 0-01 [id number] tablet by i ty of tablet 00:00: mouth [place] 00 daily. Medical Branch aspirin 81 2020- Yes [id number] 81mg Take 1 [facility] mg chewable 0-01 [id number] tablet by i ty of tablet 00:00: mouth [place] 00 daily. Medical Branch aspirin 81 2020- Yes [id number] 81mg Take 1 [facility] mg chewable 0-01 [id number] tablet by i ty of tablet 00:00: mouth [place] 00 daily. Medical [facility] aspirin 81 2020- Yes [id number] 81mg Take 1 [facility] mg chewable 0-01 [id number] tablet by i ty of tablet 00:00: mouth [place] 00 daily. Medical Branch aspirin 81 2020- Yes [id number] 81mg Take 1 [facility] mg chewable 0-01 [id number] tablet by i ty of tablet 00:00: mouth [place] 00 daily. Medical [facility] aspirin 81 2019- Yes [id number] 81mg Take 1 [facility] mg chewable 0-01 [id number] tablet by i ty of tablet 00:00: mouth [place] 00 daily. Medical Branch aspirin 81 2019- Yes [id number] 81mg Take 1 [facility] mg chewable 0-01 [id number] tablet by i ty of tablet 00:00: mouth [place] 00 daily. [facility] Branch aspirin 81 2019- Yes [id number] 81mg Take 1 [facility] mg chewable 0-01 [id number] tablet by i ty of tablet 00:00: mouth [place] 00 daily. Medical Branch aspirin 81 2019- Yes [id number] 81mg Take 1 [facility] mg chewable 0-01 [id number] tablet by i ty of tablet 00:00: mouth [place] 00 daily. Medical Branch aspirin 81 2019- Yes [id number] 81mg Take 1 [facility] mg chewable 0-01 [id number] tablet by i ty of tablet 00:00: mouth [place] 00 daily. Medical [facility] aspirin 81 2020- Yes [id number] 81mg Take 1 [facility] mg chewable 0-01 [id number] tablet by i ty of tablet 00:00: mouth [place] 00 daily. [facility] aspirin 81 2020- Yes [id number] 81mg Take 1 [facility] mg chewable 0-01 [id number] tablet by i ty of tablet 00:00: mouth [place] 00 daily. Medical Branch aspirin 81 2020- Yes [id number] 81mg Take 1 [facility] mg chewable 0-01 [id number] tablet by i ty of tablet 00:00: mouth [place] 00 daily. Medical [facility] aspirin 81 2020- Yes [id number] 81mg Take 1 [facility] mg chewable 0-01 [id number] tablet by i ty of tablet 00:00: mouth [place] 00 daily. Medical Branch aspirin 81 2020- Yes [id number] 81mg Take 1 [facility] mg chewable 0-01 [id number] tablet by i ty of tablet 00:00: mouth [place] 00 daily. Medical Branch aspirin 81 2020- Yes [id number] 81mg Take 1 [facility] mg chewable 0-01 [id number] tablet by i ty of tablet 00:00: mouth [place] 00 daily. [facility] aspirin 81 2020- Yes [id number] 81mg Take 1 [facility] mg chewable 0-01 [id number] tablet by i ty of tablet 00:00: mouth [place] 00 daily. [facility] aspirin 81 2020- Yes [id number] 81mg Take 1 [facility] mg chewable 0-01 [id number] tablet by i ty of tablet 00:00: mouth [place] 00 daily. Medical Branch aspirin 81 2019- Yes [id number] 81mg Take 1 [facility] mg chewable 0-01 [id number] tablet by i ty of tablet 00:00: mouth [place] 00 daily. Medical Branch aspirin 81 2019- Yes [id number] 81mg Take 1 [facility] mg chewable 0-01 [id number] tablet by i ty of tablet 00:00: mouth [place] 00 daily. Medical Branch aspirin 81 2020- Yes [id number] 81mg Take 1 [facility] mg chewable 0-01 [id number] tablet by i ty of tablet 00:00: mouth [place] 00 daily. Medical Branch aspirin 81 2019- Yes [id number] 81mg Take 1 [facility] mg chewable 0-01 [id number] tablet by i ty of tablet 00:00: mouth [place] 00 daily. Medical Branch aspirin 81 2019- Yes [id number] 81mg Take 1 [facility] mg chewable 0-01 [id number] tablet by i ty of tablet 00:00: mouth [place] 00 daily. Medical Branch aspirin 81 2020- Yes [id number] 81mg Take 1 [facility] mg chewable 0-01 [id number] tablet by i ty of tablet 00:00: mouth [place] 00 daily. Medical Branch pantoprazol 2019-02- No [id number] 20mg Take 1 [facility] e 20 mg EC 0-01 07-15 tablet by ity of tablet 00:00: 00:00 mouth [place] 00 :00 daily. Medical Take 30 Branch mins before breakfast. atorvastati 2020-0 Yes [facility] (LIPITOR) 6-13 [facility] 40 MG 00:00: of tablet 00 Medicin e atorvastati 2020-0 Yes [facility] (LIPITOR) 6-13 [facility] 40 MG 00:00: of tablet 00 Medicin e atorvastati 2020-0 Yes [facility] n (LIPITOR) 6-13 [place] 40 MG 00:00: of tablet 00 Medicin e atorvastati 2020-0 Yes Art n (LIPITOR) 6-13 [facility] 40 MG 00:00: of tablet 00 Medicin e atorvastati 2020-0 Yes [facility] n (LIPITOR) 6-13 College 40 MG 00:00: of tablet 00 Medicin e atorvastati 2020-0 Yes [facility] n (LIPITOR) 6-13 College 40 MG 00:00: of tablet 00 Medicin e atorvastati 2020-0 Yes [facility] n (LIPITOR) 6-13 College 40 MG 00:00: of tablet 00 Medicin e atorvastati 2020-0 2022- No [facility] r n (LIPITOR) 6-13 02-10 College 40 MG 00:00: 00:00 of tablet 00 :00 Medicin e amlodipine 2020-0 Yes [facility] (NORVASC) 5 6-02 College MG tablet 00:00: of 00 Medicin e amlodipine 2020-0 Yes [facility] (NORVASC) 5 6-02 College MG tablet 00:00: of 00 Medicin e amlodipine 2020-0 Yes [facility] (NORVASC) 5 6-02 College MG tablet 00:00: of 00 Medicin e amlodipine 2020-0 Yes [facility] (NORVASC) 5 6-02 College MG tablet 00:00: of 00 Medicin e amlodipine 2020-0 Yes [facility] (NORVASC) 5 6-02 College MG tablet 00:00: of 00 Medicin e amlodipine 2020-0 2021- No [facility] (NORVASC) 5 6-02 09-19 College MG tablet 00:00: 00:00 of 00 :00 Medicin e losartan 2020-0 Yes [facility] (COZAAR) 5-30 College 100 MG 00:00: of tablet 00 Medicin e losartan 2020-0 Yes [facility] (COZAAR) 5-30 College 100 MG [...] 25 mg every day losartan 2020-0 Yes [facility] (COZAAR) 30 College 100 MG 00:00: of tablet 00 Medicin e losartan 2020-0 Yes [facility] (COZAAR) 30 College 100 MG 00:00: of tablet 00 Medicin e losartan 2020-0 Yes [facility] (COZAAR) 07-12 College 100 MG 00:00: of tablet 00 Medicin e losartan 2020-0 2022- No 50mg 50 mg. Pt [facility] (COZAAR) 07-12 takes 50 [facility] 100 MG 00:00: 00:00 mg , and of tablet 00 :00 now she is Medicin taking e half of the dose 25 mg every day losartan 2020-0 Yes 50mg QD Take 0.5 [...] for premedicat ion hydrALAZINE 2020-0 Yes 50mg Q.[id number] Take [address] [facility] (APRESOLINE 2-17 [id number] by mouth [facility] ) 50 MG 00:00: 3D (three) Medical tablet 00 times Center daily . hydroCHLORO 2020-0 Yes 25mg QD Take [address] [facility] thiazide 2-17 by mouth [facility] (HYDRODIURI 00:00: daily. Medi angelica L) 25 MG 00 Center tablet hydrALAZINE 2020-0 Yes 50mg Q.[id number] Take [address] [facility] (APRESOLINE 2-17 [id number] by mouth [facility] ) 50 MG 00:00: 3D (three) Medical tablet 00 times Center daily . hydroCHLORO 2020-0 Yes 25mg QD Take [address] [facility] thiazide 2-17 by mouth [facility] (HYDRODIURI 00:00: daily. Medi angelica L) 25 MG 00 Center tablet hydrALAZINE 2020-0 Yes 50mg Q.[id number] Take [address] [facility] (APRESOLINE 2-17 [id number] by mouth [facility] ) 50 MG 00:00: 3D (three) Medical tablet 00 times Center daily . hydroCHLORO 2020-0 Yes 25mg QD Take [address] [facility] thiazide 2-17 by mouth [facility] (HYDRODIURI 00:00: daily. Medi angelica L) 25 MG 00 Center tablet hydrALAZINE 2020-0 Yes 50mg Q.[id number] Take [address] [facility] (APRESOLINE 2-17 [id number] by mouth [facility] ) 50 MG 00:00: 3D (three) Medical tablet 00 times Center daily . hydroCHLORO 2020-0 Yes 25mg QD Take [address] [facility] thiazide 2-17 by mouth [facility] (HYDRODIURI 00:00: daily. Medi angelica L) 25 MG 00 Center tablet hydrALAZINE 2020-0 Yes 50mg Q.[id number] Take [address] [facility] (APRESOLINE 2-17 [id number] by mouth [facility] ) 50 MG 00:00: 3D (three) Medical tablet 00 times Center daily . hydroCHLORO 2020-0 Yes 25mg QD Take [address] [facility] thiazide 2-17 by mouth [facility] (HYDRODIURI 00:00: daily. Medi angelica L) 25 MG 00 Center tablet hydrALAZINE 2020-0 Yes 50mg Q.[id number] Take [address] [facility] (APRESOLINE 2-17 [id number] by mouth [facility] ) 50 MG 00:00: 3D (three) Medical tablet 00 times Center daily . hydroCHLORO 2020-0 Yes 25mg QD Take [address] [facility] thiazide 2-17 by mouth [facility] (HYDRODIURI 00:00: daily. Medi angelica L) 25 MG 00 Center tablet hydrALAZINE 2020-0 Yes 50mg Q.[id number] Take [address] [facility] (APRESOLINE 2-17 [id number] by mouth [facility] ) 50 MG 00:00: 3D (three) Medical tablet 00 times Center daily . hydroCHLORO 2020-0 Yes 25mg QD Take [address] [facility] thiazide 2-17 by mouth [facility] (HYDRODIURI 00:00: daily. Medi angelica L) 25 MG 00 Center tablet hydrALAZINE 2020-0 Yes 50mg Q.[id number] Take [address] [facility] (APRESOLINE 2-17 [id number] by mouth [facility] ) 50 MG 00:00: 3D (three) Medical tablet 00 times Center daily . hydroCHLORO 2020-0 Yes 25mg QD Take [address] [facility] thiazide 2-17 by mouth [facility] (HYDRODIURI 00:00: daily. Medi angelica L) 25 MG 00 Center tablet hydrALAZINE 2020-0 Yes 50mg Q.[id number] Take [address] [facility] (APRESOLINE 2-17 [id number] by mouth [facility] ) 50 MG [...] by mouth [facility] tablet 00:00: daily. [address] aspirin 81 2019-0 Yes 81mg QD Take [address] MG chewable 6-21 by mouth [facility] tablet 00:00: daily. [address] aspirin 81 2019-0 Yes 81mg QD Take [address] MG chewable 6-21 by mouth [facility] tablet 00:00: daily. [address] aspirin 81 2019-0 Yes 81mg QD Take [address] MG chewable 6-21 by mouth [facility] tablet 00:00: daily. [address] aspirin 81 2019-0 Yes 81mg QD Take [address] MG chewable 6-21 by mouth [facility] tablet 00:00: daily. [address] aspirin 81 2019-0 Yes 81mg QD Take [address] MG chewable 6-21 by mouth [facility] tablet 00:00: daily. [address] aspirin 81 2019-0 Yes 81mg QD Take [address] MG chewable 6-21 by mouth [facility] tablet 00:00: daily. [address] aspirin 81 2019-0 Yes 81mg QD Take [address] MG chewable 6-21 by mouth [facility] tablet 00:00: daily. [address] aspirin 81 2019-0 Yes 81mg QD Take [address] MG chewable 6-21 by mouth [facility] tablet 00:00: daily. [address] aspirin EC 2019-0 Yes 81mg Take [...] MG 6-21 by mouth. College tablet 00:00: Medicin e aspirin EC 2019-0 Yes 81mg Take 81 mg [facility] 81 MG 6-21 by mouth. College tablet 00:00: Medicin e atorvastati 2017-02 Yes 40mg QD Take [address] [facility] n (LIPITOR) 1-30 by mouth [facility] 40 MG 00:00: daily. Medical tablet 00 [place] amLODIPine 2017-02 Yes 2.5mg QD Take 2.[address] (NORVASC) 5 1-30 mg by [facility] tablet 00:00: mouth Medical 00 daily . [place] atorvastati 2017-02 Yes 40mg QD Take [address] [facility] n (LIPITOR) 1-30 by mouth [facility] 40 MG 00:00: daily. Medical tablet 00 [place] amLODIPine 2017-02 Yes 2.5mg QD Take 2.[address] (NORVASC) 5 1-30 mg by [facility] tablet 00:00: mouth Medical 00 daily . [place] atorvastati 2017-02 Yes 40mg QD Take [address] [facility] n (LIPITOR) 1-30 by mouth [facility] 40 MG 00:00: daily. Medical tablet 00 [place] amLODIPine 2017-02 Yes 2.5mg QD Take 2.[address] (NORVASC) 5 1-30 mg by [facility] tablet 00:00: mouth Medical 00 daily . [place] atorvastati 2017-02 Yes 40mg QD Take [address] [facility] n (LIPITOR) 1-30 by mouth [facility] 40 MG 00:00: daily. Medical tablet 00 [place] amLODIPine 2017-02 Yes 2.5mg QD Take 2.[address] (NORVASC) 5 1-30 mg by [facility] tablet 00:00: mouth Medical 00 daily . [place] atorvastati 2017-02 Yes 40mg QD Take [address] [facility] [facility] n (LIPITOR) 1-30 by mouth [facility] 40 MG 00:00: daily. Medical tablet 00 [place] amLODIPine 2017-02 Yes 2.5mg QD Take 2.[address] (NORVASC) 5 1-30 mg by [facility] tablet 00:00: mouth Medical 00 daily . [place] atorvastati 2017-02 Yes 40mg QD Take [address] [facility] (LIPITOR) 1-30 by mouth [facility] 40 MG 00:00: daily. Medical tablet 00 [place] amLODIPine 2017-02 Yes 2.5mg QD Take 2.[address] [facility] [address] [facility] (NORVASC) 5 1-30 [facility] tablet [facility]: mouth Medical 00 daily . [place] atorvastati 2017-02 Yes 40mg QD Take [address] [facility] (LIPITOR) 1-30 by mouth [facility] 40 MG 00:00: daily. Medical tablet 00 [place] amLODIPine 2017-02 Yes 2.5mg QD Take 2.[address] [facility] [address] (NORVASC) 5 1-30 mg [facility] tablet 00:00: mouth Medical 00 daily . [place] atorvastati 2017-02 Yes 40mg QD Take [address] [facility] (LIPITOR) 1-30 by mouth [facility] 40 MG 00:00: daily. Medical tablet 00 [place] amLODIPine 2017-02 Yes 2.5mg QD Take 2.[address] [facility] [address] (NORVASC) 5 1-30 [facility] tablet 00:00: mouth Medical 00 daily . [place] atorvastati 2017-02 Yes 40mg QD Take [address] [facility] (LIPITOR) 1-30 by mouth [facility] 40 MG 00:00: daily. Medical tablet 00 [place] amLODIPine 2017-02 Yes 2.5mg QD Take 2.5 [...] 2019-11-08 Completed [facility] 00[facility]00 [facility] Influenza High Dose 2019-11-08 Completed [facility] 00:00:00 [facility] Influenza High Dose 2019-11-08 Completed [facility] 00:00:00 [facility] Influenza High Dose 2019-11-08 Completed [facility] 00:00:00 [facility] Influenza High Dose 2019-11-08 Completed [facility] 00:00:00 [facility] Influenza High Dose 2019-11-08 Completed [facility] 00:00:00 [facility] Influenza High Dose 2019-11-08 Completed [facility] 00:00:00 [facility] Influenza High Dose 2019-11-08 Completed [facility] 00:00:00 [facility] Influenza High Dose 2019-11-08 Completed [facility] 00:00:00 [facility] Influenza High Dose 2019-11-08 Completed [facility] 00:00:00 [facility] Influenza High Dose 2019-11-08 Completed [facility] 00:00:00 [facility] Influenza High Dose 2019-11-08 Completed [facility] 00:00:00 [facility] Influenza High Dose 2019-11-08 Completed [facility] 00:00:00 [facility] Influenza High Dose 2019-11-08 Completed [facility] 00:00:00 [facility] Influenza High Dose 2019-11-08 Completed [facility] 00:00:00 [facility] Influenza High Dose 2019-11-08 Completed [facility] 00:00:00 [facility] Influenza High Dose 2019-11-08 Completed [facility] 00:00:00 [facility] Influenza High Dose 2019-11-08 Completed [facility] 00:00:00 [facility] Influenza High Dose 2019-11-08 Completed [facility] 00:00:00 [facility] Influenza High Dose 2019-11-08 Completed [facility] of 00:00:00 [facility] Influenza High Dose 2019-11-08 Completed [facility] 00:00:00 [facility] Influenza High Dose 2019-11-08 Completed [facility] of 00:00:00 [facility] Influenza High Dose 2019-11-08 Completed [facility] 00:00:00 [facility] Influenza High Dose 2019-11-08 Completed [facility] of 00:00:00 [facility] Influenza High Dose 2019-11-08 Completed [facility] 00:00:00 [facility] Influenza High Dose 2019-11-08 Completed [facility] 00:00:00 [facility] Influenza High Dose 2019-11-08 Completed [facility] 00:00:00 [facility] Influenza High Dose 2019-11-08 Completed [facility] 00:00:00 [facility] Influenza High Dose 2019-11-08 Completed [facility] 00:00:00 [facility] Influenza High Dose 2019-11-08 Completed [facility] of 00:00:00 [facility] Influenza High Dose 2019-11-08 Completed [facility] 00:00:00 [facility] Influenza High Dose 2019-11-08 Completed [facility] of 00:00:00 [facility] Influenza High Dose 2019-11-08 Completed [facility] 00:00:00 [facility] Influenza High Dose 2019-11-08 Completed [facility] of 00:00:00 [facility] Influenza High Dose 2019-11-08 Completed [facility] 00:00:00 [facility] Influenza High Dose 2019-11-08 Completed [facility] of 00:00:00 [facility] Influenza High Dose 2019-11-08 Completed [facility] 00:00:00 [facility] Influenza High Dose 2019-11-08 Completed [facility] of 00:00:00 [facility] Influenza High Dose 2019-11-08 Completed [facility] 00:00:00 [facility] Influenza High Dose 2019-11-08 Completed [facility] of 00:00:00 [facility] Influenza High Dose 2019-11-08 Completed [facility] 00:00:00 [facility] Influenza High Dose 2019-11-08 Completed [facility] of 00:00:00 [facility] Influenza High Dose 2019-11-08 Completed [facility] 00:00:00 [facility] Influenza High Dose 2019-11-08 Completed [facility] of 00:00:00 [facility] Influenza High Dose 2019-11-08 Completed [facility] 00:00:00 [facility] Influenza High Dose 2019-11-08 Completed [facility] of 00:00:00 [facility] Influenza High Dose 2019-11-08 Completed [facility] 00:00:00 [facility] Influenza High Dose 2019-11-08 Completed [facility] of 00:00:00 [facility] Influenza High Dose 2019-11-08 Completed [facility] 00:00:00 [facility] Influenza High Dose 2019-11-08 Completed [facility] of 00:00:00 [facility] Influenza High Dose 2019-11-08 Completed [facility] 00:00:00 [facility] Influenza High Dose 2019-11-08 Completed [facility] of 00:00:00 [facility] Influenza High Dose 2019-11-08 Completed [facility] 00:00:00 [facility] Influenza High Dose 2019-11-08 Completed [facility] of 00:00:00 [facility] Influenza High Dose 2019-11-08 Completed [facility] 00:00:00 [facility] Influenza High Dose 2019-11-08 Completed [facility] of 00:00:00 [facility] Influenza High Dose 2019-11-08 Completed [facility] 00:00:00 [facility] Influenza High Dose 2019-11-08 Completed [facility] of 00:00:00 [facility] Influenza High Dose 2019-11-08 Completed [facility] 00:00:00 [facility] Influenza High Dose 2019-11-08 Completed [facility] of 00:00:00 [facility] Influenza High Dose 2019-11-08 Completed [facility] 00:00:00 [facility] Influenza High Dose 2019-11-08 Completed [facility] of 00:00:00 [facility] Influenza High Dose 2019-11-08 Completed [facility] 00:00:00 [facility] Influenza High Dose 2019-11-08 Completed [facility] of 00:00:00 [facility] Influenza High Dose 2019-11-08 Completed [facility] 00:00:00 [facility] Influenza High Dose 2019-11-08 Completed [facility] of 00:00:00 [facility] Influenza High Dose 2019-11-08 Completed [facility] 00:00:00 [facility] Influenza High Dose 2019-11-08 Completed [facility] of 00:00:00 [facility] Influenza High Dose 2019-11-08 Completed [facility] 00:00:00 [facility] Influenza High Dose 2019-11-08 Completed [facility] of 00:00:00 [facility] Influenza High Dose 2019-11-08 Completed [facility] 00:00:00 [facility] Influenza High Dose 2019-11-08 Completed [facility] 00:00:00 [facility] Influenza High Dose 2019-11-08 Completed [facility] 00:00:00 [facility] Influenza High Dose 2019-11-08 Completed [facility] of 00:00:00 [facility] Influenza Hd 2019-11-08 Completed [facility] Colle ge 00:00:00 of Medicine Influenza Hd 2019-11-08 Completed Art [facility] 00:00:00 of Medicine Influenza Hd 2019-11-08 Completed Art [facility] 00:00:00 of Medicine Influenza High Dose 2019-02-13 Completed [facility] 00:00:00 [facility] Influenza High Dose 2019-02-13 Completed [facility] of 00:00:00 [facility] Influenza High Dose 2019-02-13 Completed [facility] of 00:00:00 [facility] Influenza High Dose 2019-02-13 Completed [facility] of 00:00:00 [facility] Influenza High Dose 2019-02-13 Completed [facility] of 00:00:00 [facility] Influenza High Dose 2019-02-13 Completed [facility] of 00:00:00 [facility] Influenza High Dose 2019-02-13 Completed [facility] of 00:00:00 [facility] Influenza High Dose 2019-02-13 Completed [facility] of 00:00:00 [facility] Influenza High Dose 2019-02-13 Completed [facility] of 00:00:00 [facility] Influenza High Dose 2019-02-13 Completed [facility] of 00:00:00 [facility] Influenza High Dose 2019-02-13 Completed [facility] of 00:00:00 [facility] Influenza High Dose 2019-02-13 Completed [facility] of 00:00:00 [facility] Influenza High Dose 2019-02-13 Completed [facility] of 00:00:00 [facility] Influenza High Dose 2019-02-13 Completed [facility] of 00:00:00 [facility] Influenza High Dose 2019-02-13 Completed [facility] of 00:00:00 [facility] Influenza High Dose 2019-02-13 Completed [facility] of 00:00:00 [facility] Influenza High Dose 2019-02-13 Completed [facility] of 00:00:00 [facility] Influenza High Dose 2019-02-13 Completed [facility] 00:00:00 [facility] Influenza High Dose 2019-02-13 Completed [facility] 00:00:00 [facility] Influenza High Dose 2019-02-13 Completed [facility] of 00:00:00 [facility] Influenza High Dose 2019-02-13 Completed [facility] of 00:00:00 [facility] Influenza High Dose 2019-02-13 Completed [facility] of 00:00:00 [facility] Influenza High Dose 2019-02-13 Completed [facility] of 00:00:00 [facility] Influenza High Dose 2019-02-13 Completed [facility] of 00:00:00 [facility] Influenza High Dose 2019-02-13 Completed [facility] of 00:00:00 [facility] Influenza High Dose 2019-02-13 Completed [facility] of 00:00:00 [facility] Influenza High Dose 2019-02-13 Completed [facility] of 00:00:00 [facility] Influenza High Dose 2019-02-13 Completed [facility] of 00:00:00 [facility] Influenza High Dose 2019-02-13 Completed [facility] of 00:00:00 [facility] Influenza High Dose 2019-02-13 Completed [facility] of 00:00:00 [facility] Influenza High Dose 2019-02-13 Completed [facility] of 00:00:00 [facility] Influenza High Dose 2019-02-13 Completed [facility] of 00:00:00 [facility] Influenza High Dose 2019-02-13 Completed [facility] of 00:00:00 [facility] Influenza High Dose 2019-02-13 Completed [facility] of 00:00:00 [facility] Influenza High Dose 2019-02-13 Completed [facility] of 00:00:00 [facility] Influenza High Dose 2019-02-13 Completed [facility] of 00:00:00 [facility] Influenza High Dose 2019-02-13 Completed [facility] of 00:00:00 [facility] Influenza High Dose 2019-02-13 Completed [facility] of 00:00:00 [facility] Influenza High Dose 2019-02-13 Completed [facility] of 00:00:00 [facility] Influenza High Dose 2019-02-13 Completed [facility] of 00:00:00 [facility] Influenza High Dose 2019-02-13 Completed [facility] of 00:00:00 [facility] Influenza High Dose 2019-02-13 Completed [facility] of 00:00:00 [facility] Influenza High Dose 2019-02-13 Completed [facility] of 00:00:00 [facility] Influenza High Dose 2019-02-13 Completed [facility] of 00:00:00 [facility] Influenza High Dose 2019-02-13 Completed [facility] 00:00:00 [facility] Influenza High Dose 2019-02-13 Completed [facility] of 00:00:00 [facility] Influenza Hd 2019-02-13 Completed [facility] Colle ge 00:00:00 of Medicine Influenza Hd 2019-02-13 Completed Art [facility] 00:00:00 of Medicine Influenza Hd 2019-02-13 Completed Art [facility] ge 00:00:00 of Medicine TDAP 2017-11-10 Completed [facility] 00:00:00 [facility] TDAP 2017-11-10 Completed University of 00:00:00 [facility] TDAP 2017-11-10 Completed University of 00:00:00 [facility] TDAP 2017-11-10 Completed University of 00:00:00 [facility] TDAP 2017-11-10 Completed University of 00:00:00 [facility] TDAP 2017-11-10 Completed University of 00:00:00 [facility] TDAP 2017-11-10 Completed University of 00:00:00 [facility] TDAP 2017-11-10 Completed University of 00:00:00 [facility] TDAP 2017-11-10 Completed University of 00:00:00 [facility] TDAP 2017-11-10 Completed University of 00:00:00 [facility] TDAP 2017-11-10 Completed University of 00:00:00 [facility] TDAP 2017-11-10 Completed University of 00:00:00 [facility] TDAP 2017-11-10 Completed [facility] 00:00:00 [facility] TDAP 2017-11-10 Completed [facility] 00:00:00 [facility] TDAP 2017-11-10 Completed [facility] 00:00:00 [facility] TDAP 2017-11-10 Completed [facility] 00:00:00 [facility] TDAP 2017-11-10 Completed [facility] 00:00:00 [facility] TDAP 2017-11-10 Completed [facility] 00:00:00 [facility] TDAP 2017-11-10 Completed [facility] 00:00:00 [facility] TDAP 2017-11-10 Completed [facility] 00:00:00 [facility] TDAP 2017-11-10 Completed University [facility] 00:00:00 [facility] TDAP 2017-11-10 Completed [facility] 00:00:00 [facility] TDAP 2017-11-10 Completed [facility] 00:00:00 [facility] TDAP 2017-11-10 Completed [facility] 00:00:00 [facility] TDAP 2017-11-10 Completed [facility] 00:00:00 [facility] TDAP 2017-11-10 Completed [facility] 00:00:00 [facility] TDAP 2017-11-10 Completed [facility] 00:00:00 [facility] TDAP 2017-11-10 Completed [facility] 00:00:00 [facility] TDAP 2017-11-10 Completed [facility] 00:00:00 [facility] TDAP 2017-11-10 Completed [facility] 00:00:00 [facility] TDAP 2017-11-10 Completed [facility] 00:00:00 [facility] TDAP 2017-11-10 Completed [facility] 00:00:00 [facility] TDAP 2017-11-10 Completed [facility] 00:00:00 [facility] TDAP 2017-11-10 Completed [facility] 00:00:00 [facility] TDAP 2017-11-10 Completed University [facility] 00:00:00 [facility] TDAP 2017-11-10 Completed [facility] 00:00:00 [facility] TDAP 2017-11-10 Completed [facility] 00:00:00 [facility] TDAP 2017-11-10 Completed [facility] 00:00:00 [facility] TDAP 2017-11-10 Completed [facility] 00:00:00 [facility] TDAP 2017-11-10 Completed [facility] 00:00:00 [facility] TDAP 2017-11-10 Completed University of 00:00:00 [facility] TDAP 2017-11-10 Completed University of 00:00:00 [facility] TDAP 2017-11-10 Completed University of 00:00:00 [facility] TDAP 2017-11-10 Completed University of 00:00:00 [facility] TDAP 2017-11-10 Completed University of 00:00:00 [facility] TDAP 2017-11-10 Completed [facility] 00:00:00 [facility] Tdap 2017-11-10 Completed [facility] 00:00:00 of Medicine Tdap 2017-11-10 Completed [facility] 00:00:00 of Medicine Tdap 2017-11-10 Completed [facility] 00:00:00 of Medicine Pneumococcal 2017-06-09 Completed University [...] ical PPSV23 (PNEUMOVAX) Branch Pneumococcal 2017-06-09 Completed [facility] Colle ge Polysaccharide 00:00:00 of Medicin e Pneumococcal 2017-06-09 Completed [facility] Colle ge Polysaccharide 00:00:00 of Medicin e Pneumococcal 2017-06-09 Completed [facility] Colle ge Polysaccharide 00:00:00 of Medicin e Influenza High Dose 2016-11-14 Completed Unive rsity of 00:00:00 [facility] Influenza High Dose 2016-11-14 Completed [facility]ity of 00:00:00 [facility] Influenza High Dose 2016-11-14 Completed Unive rsity of 00:00:00 [facility] Influenza High Dose 2016-11-14 Completed Unive [facility]ity of 00:00:00 [facility] Influenza High Dose 2016-11-14 Completed [facility] of 00:00:00 [facility] Influenza High Dose 2016-11-14 Completed [facility] of 00:00:00 [facility] Influenza High Dose 2016-11-14 Completed [facility]ity of 00:00:00 [facility] Influenza High Dose 2016-11-14 Completed [facility] of 00:00:00 [facility] Influenza High Dose 2016-11-14 Completed [facility] of 00:00:00 [facility] Influenza High Dose 2016-11-14 Completed [facility] of 00:00:00 [facility] Influenza High Dose 2016-11-14 Completed [facility] of 00:00:00 [facility] Influenza High Dose 2016-11-14 Completed [facility] of 00:00:00 [facility] Influenza High Dose 2016-11-14 Completed [facility] of 00:00:00 [facility] Influenza High Dose 2016-11-14 Completed [facility] of 00:00:00 [facility] Influenza High Dose 2016-11-14 Completed [facility] of 00:00:00 [facility] Influenza High Dose 2016-11-14 Completed [facility]ity of 00:00:00 [facility] Influenza High Dose 2016-11-14 Completed [facility] of 00:00:00 [facility] Influenza High Dose 2016-11-14 Completed [facility] of 00:00:00 [facility] Influenza High Dose 2016-11-14 Completed Un[facility]ity of 00:00:00 [facility] Influenza High Dose 2016-11-14 Completed Un[facility]ity of 00:00:00 [facility] Influenza High Dose 2016-11-14 Completed Un[facility]ity of 00:00:00 [facility] Influenza High Dose 2016-11-14 Completed Unive [facility]ity of 00:00:00 [facility] Influenza High Dose 2016-11-14 Completed [facility] of 00:00:00 [facility] Influenza High Dose 2016-11-14 Completed Unive rsity of 00:00:00 [facility] Influenza High Dose 2016-11-14 Completed Unive rsity of 00:00:00 [facility] Influenza High Dose 2016-11-14 Completed Unive [facility]ity of 00:00:00 [facility] Influenza High Dose 2016-11-14 Completed Unive [facility]ity of 00:00:00 [facility] Influenza High Dose 2016-11-14 Completed Unive rsity of 00:00:00 [facility] Influenza High Dose 2016-11-14 Completed [facility]ity of 00:00:00 [facility] Influenza High Dose 2016-11-14 Completed Unive rsity of 00:00:00 [facility] Influenza High Dose 2016-11-14 Completed [facility] of 00:00:00 [facility] Influenza High Dose 2016-11-14 Completed [facility] of 00:00:00 [facility] Influenza High Dose 2016-11-14 Completed [facility] of 00:00:00 [facility] Influenza High Dose 2016-11-14 Completed [facility]ity of 00:00:00 [facility] Influenza High Dose 2016-11-14 Completed [facility] of 00:00:00 [facility] Influenza High Dose 2016-11-14 Completed [facility] of 00:00:00 [facility] Influenza High Dose 2016-11-14 Completed [facility] of 00:00:00 [facility] Influenza High Dose 2016-11-14 Completed [facility] of 00:00:00 [facility] Influenza High Dose 2016-11-14 Completed [facility] of 00:00:00 [facility] Influenza High Dose 2016-11-14 Completed [facility] of 00:00:00 [facility] Influenza High Dose 2016-11-14 Completed [facility] rsity of 00:00:00 [facility] Influenza High Dose 2016-11-14 Completed Unive rsity of 00:00:00 [facility] Influenza High Dose 2016-11-14 Completed Unive rsity of 00:00:00 [facility] Influenza High Dose 2016-11-14 Completed [facility] of 00:00:00 [facility] Influenza High Dose 2016-11-14 Completed [facility] rs[facility] of 00:00:00 [facility] Influenza High Dose 2016-11-14 Completed [facility]ity of 00:00:00 [facility] Influenza Hd 2016-11-14 Completed [facility] 00:00:00 of Medicine Influenza Hd 2016-11-14 Completed [facility] 00:00:00 of Medicine Influenza Hd 2016-11-14 Completed [facility] 00:00:00 of Medicine Vital Signs Vital Name Observation Time Observation Value Comments Source HEIGHT 2019-07-08 00:00:00 147.3 cm WEIGHT 2019-07-08 00:00:00 57.743 kg Systolic blood 2022-04-08 19:24:00 134 mm[Hg] Univer sity of pressure [facility] Diastolic blood 2022-04-08 19:24:00 73 mm[Hg] Unive rsity of pressure [facility] Heart rate 2022-04-08 19:24:00 73 /min Universi ty of [facility] Body height 2022-04-08 19:24:00 157.5 cm [facility] Body weight 2022-04-08 19:24:00 64.864 kg [facility] BMI 2022-04-08 19:24:00 26.16 kg/m2 [facility] Systolic blood 2022-04-11 15:24:00 136 mm[Hg] Univer sity of pressure [facility] Diastolic blood 2022-04-11 15:24:00 76 mm[Hg] Unive rsity of pressure [facility] Heart rate 2022-04-11 15:24:00 83 /min [facility] Body height 2022-04-11 15:24:00 157.5 cm [facility] Body weight 2022-04-11 15:24:00 63.504 kg [facility] BMI 2022-04-11 15:24:00 25.61 kg/m2 [facility] Oxygen saturation in 2022-04-11 15:24:00 97 /min University of Arterial blood by [facility] Pulse oximetry Branch Systolic blood 2022-03-25 16:35:00 140 mm[Hg] [facility] Medicine Diastolic blood 2022-03-25 16:35:00 60 mm[Hg] [facility] Medicine Heart rate 2022-03-25 16:35:00 79 /min [facility] Respiratory rate 2022-03-25 16:35:00 16 /min [facility] Body height 2022-03-25 16:35:[address] [facility] Body weight 2022-03-25 16:35:[address] [facility] BMI 2022-03-25 16:35:00 25.12 kg/m2 [facility] Systolic blood 2022-03-11 20:35:00 136 mm[Hg] Univer sity of [facility] Diastolic blood 2022-03-11 20:35:00 76 mm[Hg] Unive rsity of pressure [facility] Heart rate 2022-03-11 20:33:00 83 /min [facility] Body temperature 2022-03-11 20:33:00 37.11 Monique Univ ersity of [facility] Body height 2022-03-11 20:33:00 157.5 cm [facility] Body weight 2022-03-11 20:33:00 63.504 kg [facility] BMI 2022-03-11 20:33:00 25.61 kg/m2 [facility] Oxygen saturation in 2022-03-11 20:33:00 97 /min [facility] of Arterial blood by [facility] Pulse oximetry Branch Systolic blood 2022-03-11 14:27:00 145 mm[Hg] Univer sity of pressure [facility] Diastolic blood 2022-03-11 14:27:00 68 mm[Hg] Unive rsity of pressure [facility] Heart rate 2022-03-11 14:26:00 78 /min [facility] Body height 2022-03-11 14:26:00 157.5 cm [facility] Body weight 2022-03-11 14:26:00 61.236 kg [facility] BMI 2022-03-11 14:26:00 24.69 kg/m2 [facility] Oxygen saturation in 2022-03-11 14:26:00 99 /min University of Arterial blood by [facility] angelica Pulse oximetry Branch Systolic blood 2022-02-25 23:37:00 131 mm[Hg] Univer sity of pressure [facility] Diastolic blood 2022-02-25 23:37:00 85 mm[Hg] Unive rsity of pressure [facility] Heart rate 2022-02-25 23:37:00 70 /min [facility] Body temperature 2022-02-25 23:37:00 36.83 Monique Univ ers[facility] Respiratory rate 2022-02-25 23:37:00 18 /min Univ ersity [facility] Body height 2022-02-25 23:37:00 157.5 cm [facility] Body weight 2022-02-25 23:37:00 58.968 kg [facility] BMI 2022-02-25 23:37:00 23.78 kg/m2 [facility] Oxygen saturation in 2022-02-25 23:37:00 99 /min [facility] of Arterial blood by [facility] Pulse oximetry Branch Systolic blood 2022-01-21 21:34:00 133 mm[Hg] Univer sity of pressure [facility] Diastolic blood 2022-01-21 21:34:00 75 mm[Hg] Unive rsity of pressure [facility] Heart rate 2022-01-21 21:34:00 80 /min [facility] Body temperature 2022-01-21 21:34:00 36.5 Monique [facility] ers[facility] Body height 2022-01-21 21:34:00 144.8 cm [facility] Body weight 2022-01-21 21:34:00 62.596 kg [facility] BMI 2022-01-21 21:34:00 29.86 kg/m2 [facility] Oxygen saturation in 2022-01-21 21:34:00 96 /min [facility] of Arterial blood by [facility] Pulse oximetry Branch Systolic blood 2021-12-24 20:33:00 135 mm[Hg] Univer sity of pressure [facility] Diastolic blood 2021-12-24 20:33:00 65 mm[Hg] Unive rsity of pressure [facility] Heart rate 2021-12-24 20:33:00 73 /min [facility] Body temperature 2021-12-24 20:33:00 36.56 Monique [facility] Body height 2021-12-24 20:33:00 144.8 cm [facility] Body weight 2021-12-24 20:33:00 62.596 kg [facility] BMI 2021-12-24 20:33:00 29.86 kg/m2 [facility] Oxygen saturation in 2021-12-24 20:33:00 96 /min [facility] of Arterial blood by [facility] Pulse oximetry Branch Systolic blood 2021-12-03 18:46:00 148 mm[Hg] Univer sity of pressure [facility] Diastolic blood 2021-12-03 18:46:00 70 mm[Hg] Unive rsity of pressure [facility] Heart rate 2021-12-03 18:45:00 97 /min [facility] Body temperature 2021-12-03 18:45:00 37.33 Monique Univ [facility] Body height 2021-12-03 18:45:00 144.8 cm [facility] Body weight 2021-12-03 18:45:00 62.143 kg [facility] BMI 2021-12-03 18:45:00 29.65 kg/m2 [facility] Oxygen saturation in 2021-12-03 18:45:00 96 /min [facility] Arterial blood by [facility] Pulse oximetry Branch Systolic blood 2021-11-26 20:46:00 158 mm[Hg] Univer sity of pressure [facility] Diastolic blood 2021-11-26 20:46:00 72 mm[Hg] Unive rsity of pressure [facility] Heart rate 2021-11-26 20:46:00 98 /min [facility] Body height 2021-11-26 20:46:00 160 cm [facility] Body weight 2021-11-26 20:46:00 61.689 kg [facility] BMI 2021-11-26 20:46:00 24.09 kg/m2 [facility] Systolic blood 2021-11-12 19:46:00 132 mm[Hg] [facility] pressure Medicine Diastolic blood 2021-11-12 19:46:00 57 mm[Hg] [facility] Medicine Heart rate 2021-11-12 19:46:00 78 /min [facility] Body temperature 2021-11-12 19:46:00 36.67 Monique [facility] Respiratory rate 2021-11-12 19:46:00 16 /min [facility] Body height 2021-11-12 19:46:[address] [facility] Body weight 2021-11-12 19:46:[address] [facility] BMI 2021-11-12 19:46:00 24.09 kg/m2 [facility] Oxygen saturation in 2021-11-12 19:46:00 96 /min [facility] Arterial blood by [facility] Pulse oximetry Systolic blood 2021-11-02 18:10:00 152 mm[Hg] Univer [facility]ity of pressure [facility] Diastolic blood 2021-11-02 18:10:00 73 mm[Hg] Unive rsity of pressure [facility] Heart rate 2021-11-02 18:10:00 83 /min [facility] Body height 2021-11-02 18:10:00 160 cm [facility] Body weight 2021-11-02 18:10:00 61.689 kg [facility] BMI 2021-11-02 18:10:00 24.09 kg/m2 [facility] Oxygen saturation in 2021-11-02 18:10:00 95 /min [facility] of Arterial blood by [facility] Pulse oximetry Branch Systolic blood 2021-11-01 15:17:00 155 mm[Hg] [facility] pressure Medicine Diastolic blood 2021-11-01 15:17:00 70 mm[Hg] [facility] Medicine Heart rate 2021-11-01 15:17:00 80 /min [facility] Body height 2021-11-01 15:17:[address] [facility] Body weight 2021-11-01 15:17:[address] [facility] BMI 2021-11-01 15:17:00 23.03 kg/m2 [facility] Systolic blood 2021-10-25 20:11:00 138 mm[Hg] Univer sity of pressure [facility] Diastolic blood 2021-10-25 20:11:00 64 mm[Hg] Unive rsity of [facility] Heart rate 2021-10-25 20:11:00 64 /min Universi ty of [facility] Body temperature 2021-10-25 20:11:00 36.5 Monique Univ ersity of [facility] Body height 2021-10-25 20:11:00 160 cm Universi ty of [facility] Body weight 2021-10-25 20:11:00 61.689 kg Universi ty of [facility] BMI 2021-10-25 20:11:00 24.09 kg/m2 Universi ty of [facility] Oxygen saturation in 2021-10-25 20:11:00 96 /min [facility] Arterial blood by [facility] Pulse oximetry Branch Systolic blood 2021-07-09 21:36:00 132 mm[Hg] Univer sity of pressure [facility] Diastolic blood 2021-07-09 21:36:00 65 mm[Hg] Unive rsity of pressure [facility] Body temperature 2021-07-09 21:36:00 36.33 Monique Univ ersity of [facility] Heart rate 2021-07-09 21:10:00 73 /min Universi ty of [facility] Body height 2021-07-09 21:10:00 142.2 cm Universi ty of [facility] Body weight 2021-07-09 21:10:00 61.598 kg Universi ty of [facility] BMI 2021-07-09 21:10:00 30.45 kg/m2 [facility] Oxygen saturation in 2021-07-09 21:10:00 96 /min University Arterial blood by [facility] Pulse oximetry Branch Systolic blood 2021-05-03 15:25:00 121 mm[Hg] [facility] pressure Medicine Diastolic blood 2021-05-03 15:25:00 65 mm[Hg] [facility] Medicine Heart rate 2021-05-03 15:25:00 88 /min [facility] ol[facility] Systolic blood 2020-12-23 21:48:00 137 mm[Hg] [facility] pressure Medicine Diastolic blood 2020-12-23 21:48:00 69 mm[Hg] [facility] Medicine Heart rate 2020-12-23 21:48:00 73 /min [facility] Body temperature 2020-12-23 21:48:00 36.83 Monique [facility] Respiratory rate 2020-12-23 21:48:00 15 /min [facility] Body height 2020-12-23 21:48:00 [facility].6 cm [facility] Body weight 2020-12-23 21:48:[address] [facility] BMI 2020-12-23 21:48:00 22.31 kg/m2 [facility] Systolic blood 2020-05-04 15:57:00 131 mm[Hg] [facility] Medicine Diastolic blood 2020-05-04 15:57:00 60 mm[Hg] [facility] Medicine Heart rate 2020-05-04 15:57:00 67 /min [facility] ollege of Medicine Respiratory rate 2020-05-04 15:57:00 18 /min [facility] Body height 2020-05-04 15:57:00 147.3 cm [facility] Body weight 2020-05-04 15:57:00 58.514 kg [facility] ollege of Medicine BMI 2020-05-04 15:57:00 26.96 [facility]m2 [facility] Systolic blood 2020-01-06 16:58:00 146 mm[Hg] [facility] pressure Medicine Diastolic blood 2020-01-06 16:58:00 71 mm[Hg] [facility] pressure Medicine Heart rate 2020-01-06 16:58:00 88 /min [facility] ollege of Medicine Body temperature 2020-01-06 16:58:00 36.44 Monique [facility] Respiratory rate 2020-01-06 16:58:00 16 /min [facility] Body height 2020-01-06 16:58:00 144.8 cm [facility] C ollege of Medicine Body weight 2020-01-06 16:58:00 58.968 kg [facility] ollege of Medicine BMI 2020-01-06 16:58:00 28.13 kg/m2 [facility] ol[facility] of Medicine Systolic blood 2020-01-06 16:58:00 146 mm[Hg] [facility] pressure Medicine Diastolic blood 2020-01-06 16:58:00 71 mm[Hg] [facility] pressure Medicine Heart rate 2020-01-06 16:58:00 88 /min [facility] ollege of Medicine Body temperature 2020-01-06 16:58:00 36.44 Monique [facility] Respiratory rate 2020-01-06 16:58:00 16 /min [facility] Body height 2020-01-06 16:58:00 144.8 cm [facility] C ollege of Medicine Body weight 2020-01-06 16:58:00 58.968 kg [facility] ollege of Medicine BMI 2020-01-06 16:58:00 28.13 kg/m2 [facility] ollege of Medicine Systolic blood 2019-10-07 14:05:00 127 mm[Hg] [facility] pressure Medicine Diastolic blood 2019-10-07 14:05:00 67 mm[Hg] [facility] pressure Medicine Heart rate 2019-10-07 14:05:00 70 /min [facility] ollege of Medicine Body temperature 2019-10-07 14:05:00 36.39 Monique [facility] Respiratory rate 2019-10-07 14:05:00 16 /min [facility] Body height 2019-10-07 14:05:00 162.6 cm [facility] C ollege of Medicine Body weight 2019-10-07 14:05:[address] [facility] BMI 2019-10-07 14:05:00 22.31 kg/m2 [facility] Systolic blood 2019-10-07 14:05:00 127 mm[Hg] [facility] Medicine Diastolic blood 2019-10-07 14:05:00 67 mm[Hg] [facility] Medicine Heart rate 2019-10-07 14:05:00 70 /min [facility] Body temperature 2019-10-07 14:05:00 36.39 Monique [facility] Respiratory rate 2019-10-07 14:05:00 16 /min [facility] Body height 2019-10-07 14:05:[address] [facility] Body weight 2019-10-07 14:05:[address] [facility] BMI 2019-10-07 14:05:00 22.31 kg/m2 [facility] HEIGHT 2019-07-08 00:00:00 147.3 cm [...] Date / Time Performing Clinician Source Performed EXTERNAL PROVIDER RECORDS 2022-04-12 06:01:00 Doctor Unassigned, [facility] REFERRAL- 2022-04-03 06:01:00 Doctor Unassigned, [facility] REQUEST/RESPONSE [facility] CBC WITH DIFF 2022-03-11 21:42:00 Octavio Angela Fromberg kacy mitchell [facility] URINE CULTURE 2022-03-11 21:42:00 Chary Donald [facility] [place] REFERRAL- 2022-02-23 06:01:00 Doctor Rene, [facility] REQUEST/RESPONSE [facility] EMERGENCY SERVICES 2021-12-31 06:01:00 [facility] AGREEMENTS AND [facility] AUTHORIZATIONS FLU 2021-12-24 21:05:18 Chary Donald [facility] VACC(),65+YR,0.5 Medica l Branch ML,IM,ADJUVANTED,QUAD(FLU AD) MR BRAIN WO CONTRAST 2021-11-19 15:41:00 [facility]OR[facility] 2021-11-18 05:01:00 Doctor Rene, [facility] COMPREHENSIVE METABOLIC 2021-11-12 20:56:00 Italia Preston [facility] HEMOGLOBIN A1C 2021-11-12 20:56:00 Italia Preston [facility] CBC W/AUTO DIFF WITH 2021-11-12 20:56:[address] [facility] PLATELETS [facility] THYROID CASCADE PROFILE 2021-11-12 20:56:00 Italia Preston [facility] COMPREHENSIVE METABOLIC 2021-11-12 15:56:00 [facility] HEMOGLOBIN A1C 2021-11-12 15:56:00 [facility] CBC W/AUTO DIFF WITH 2021-11-12 15:56:00 [facility] PLATELETS [facility] THYROID CASCADE PROFILE 2021-11-12 15:56:00 [facility] HANDICAPPED PLACARD 2021-11-12 15:45:36 [facility] EXTERNAL PROVIDER RECORDS 2021-11-01 05:01:00 Doctor Rene, [facility] [place] POCT URINALYSIS DIPSTICK 2021-11-01 00:00:00 Keerthi Cuenca [facility] AUTHORIZATION TO RELEASE 2021-10-25 05:01:00 Doctor Rene, [facility] PHI TO [facility] [place] URINALYSIS 2021-09-03 13:22:00 Chary Donald [facility] LIPASE 2021-09-03 13:08:00 Chary Donald [facility] COMP. METABOLIC PANEL 2021-09-03 13:08:00 Chary Donald [facility] ([id number]) [facility] CBC WITH DIFF 2021-09-03 13:08:00 Chary Donald [facility] AMB REF TO UROLOGY [facility] 2021-05-03 10:53:33 [facility] POCT URINALYSIS DIPSTICK 2020-12-23 00:00:00 Keerthi Cuenca [facility] POCT URINALYSIS DIPSTICK 2020-12-23 00:00:00 [facility] POCT URINALYSIS DIPSTICK 2020-01-06 00:00:00 Keerthi Cuenca [facility] BASIC METABOLIC PANEL 2019-10-07 14:32:00 Keerthi Cuenca [facility] MAGNESIUM 2019-10-07 14:32:00 Keerthi Cuenca [facility] URIC ACID 2019-10-07 14:32:00 Keerthi Cuenca [facility] Plan of Care Planned Activity Planned [...] (2 - Td or Tdap)] Future Scheduled 2022-03-25 Diabetic foot [facility] Col [facility]ge Test 10:27:27 examination of Medicine (regime/therapy) [code = 355608344] Future Scheduled 2022-03-25 Annual Diabetic [facility] C ollege Test 10:27:27 Retinopathy of Medicine Screening [code = Annual Diabetic Retinopathy Screening] Future Scheduled 2022-03-25 ZOSTER VACCINE (1 of [facility] Test 10:27:27 2) [code = ZOSTER of Medicin e VACCINE (1 of 2)] Future Scheduled 2022-03-25 Screening for [facility] Test 10:27:27 osteoporosis of Medicine (procedure) [code = 062248576] Future Scheduled 2022-03-25 Pneumococcal 65+ (2 [employer] Test 10:27:27 - PCV) [code = of Medicine Pneumococcal 65+ (2 - PCV)] Future Scheduled 2022-03-25 COVID-19 Vaccine (2 [employer] Test 10:27:27 - Moderna series) of Medicin e [code = COVID-19 Vaccine (2 - Moderna series)] Future Scheduled 2022-03-25 Medicare Awv [facility] Kristine [employer] Test 10:27:27 (Initial) [code = of Medicin e Medicare Awv (Initial)] Future Scheduled 2022-03-25 FLU VACCINE > 6 [facility] C [facility]lege Test 10:27:27 MONTHS [code = FLU of Medici ne VACCINE > 6 MONTHS] Future Scheduled 2022-03-25 Hemoglobin A1c [facility] Co [facility]lege Test 10:27:27 measurement of Medicine (procedure) [code = 55098316] Future Scheduled 2022-03-25 Fall Screen [code = [employer] Test 10:27:27 Fall Screen] of Medicine Future Scheduled 2022-03-25 TETANUS SHOT (ADULT) [employer] Test 10:27:27 [code = TETANUS SHOT of Medi cine (ADULT)] Future Scheduled 2022-02-[address] [...] enter SCREENING] Future Scheduled 2021-11-15 Diabetic foot [facility]ge Test 19:39:46 examination of Medicine (regime/therapy) [code = 153351093] Future Scheduled 2021-11-15 ANNUAL DIABETIC [facility] C [facility]lege Test 19:39:46 RETINOPATHY of Medicine SCREENING [code = ANNUAL DIABETIC RETINOPATHY SCREENING] Future Scheduled 2021-11-15 ZOSTER VACCINE (1 of [employer] Test 19:39:46 2) [code = ZOSTER of Medicin e VACCINE (1 of 2)] Future Scheduled 2021-11-15 Screening for [facility] Test 19:39:46 osteoporosis of Medicine (procedure) [code = 999784998] Future Scheduled 2021-11-15 Pneumococcal 65+ (2 [employer] Test 19:39:46 - PCV) [code = of Medicine Pneumococcal 65+ (2 - PCV)] Future Scheduled 2021-11-15 MEDICARE AWV [facility] [employer] Test 19:39:46 (Initial) [code = of Medicin e MEDICARE AWV (Initial)] Future Scheduled 2021-11-15 COVID-19 Vaccine (2 [employer] Test 19:39:46 - Moderna series) of Medicin e [code = COVID-19 Vaccine (2 - Moderna series)] Future Scheduled 2021-11-15 FLU VACCINE > 6 [facility] C [facility]lege Test 19:39:46 MONTHS [code = FLU of Medici ne VACCINE > 6 MONTHS] Future Scheduled 2021-11-15 Hemoglobin A1c [facility] Co [facility]lege Test 19:39:46 measurement of Medicine (procedure) [code = 30279533] Future Scheduled 2021-11-15 FALL SCREEN [code = [employer] Test 19:39:46 FALL SCREEN] of Medicine Future Scheduled 2021-11-15 TETANUS SHOT (ADULT) [employer] Test 19:39:46 [code = TETANUS SHOT of Medi cine (ADULT)] Future Scheduled 2021-11-14 Diabetic foot [facility] Test 02:33:41 examination of Medicine (regime/therapy) [code = [id number]] Future Scheduled 2021-11-14 ANNUAL DIABETIC [facility] C [facility]lege Test 02:33:41 RETINOPATHY of Medicine SCREENING [code = ANNUAL DIABETIC RETINOPATHY SCREENING] Future Scheduled 2021-11-14 ZOSTER VACCINE (1 of [employer] Test 02:33:41 2) [code = ZOSTER of Medicin e VACCINE (1 of 2)] Future Scheduled 2021-11-14 Screening for [facility] Test 02:33:41 osteoporosis of Medicine (procedure) [code = 792038503] Future Scheduled 2021-11-14 Pneumococcal 65+ (2 [employer] Test 02:33:41 - PCV) [code = of Medicine Pneumococcal 65+ (2 - PCV)] Future Scheduled 2021-11-14 MEDICARE AWV [facility] [employer] Test 02:33:41 (Initial) [code = of Medicin e MEDICARE AWV (Initial)] Future Scheduled 2021-11-14 COVID-19 Vaccine (2 [employer] Test 02:33:41 - Moderna series) of Medicin e [code = COVID-19 Vaccine (2 - Moderna series)] Future Scheduled 2021-11-14 FLU VACCINE > 6 [facility] C [facility] Test 02:33:41 MONTHS [code = FLU of Medici ne VACCINE > 6 MONTHS] Future Scheduled 2021-11-14 Hemoglobin A1c [facility] Co [facility]lege Test 02:33:41 measurement of Medicine (procedure) [code = 65884043] Future Scheduled 2021-11-14 FALL SCREEN [code = [employer] Test 02:33:41 FALL SCREEN] of Medicine Future Scheduled 2021-11-14 TETANUS SHOT (ADULT) [employer] Test 02:33:41 [code = TETANUS [...] Future Scheduled 2021-05-04 ZOSTER VACCINE (1 of [employer] Test 15:51:29 2) [code = ZOSTER of Medicin e VACCINE (1 of 2)] Future Scheduled 2021-05-04 Screening for [facility] Test 15:51:29 osteoporosis of Medicine (procedure) [code = 067071157] Future Scheduled 2021-05-04 Pneumococcal 65+ (1 [employer] Test 15:51:29 of 1 - PPSV23) [code of Medi cine = Pneumococcal 65+ (1 of 1 - PPSV23)] Future Scheduled 2021-05-04 MEDICARE AWV [facility] [employer] Test 15:51:29 (Initial) [code = of Medicin e MEDICARE AWV (Initial)] Future Scheduled 2021-05-04 FLU VACCINE > 6 [facility] C [facility]lege Test 15:51:29 MONTHS [code = FLU of Medici ne VACCINE > 6 MONTHS] Future Scheduled 2021-05-04 COVID-19 Vaccine (2 [employer] Test 15:51:29 - Moderna 3-dose of Medicine series) [code = COVID-19 Vaccine (2 - Moderna 3-dose series)] Future Scheduled 2021-05-04 FALL SCREEN [code = [employer] Test 15:51:29 FALL SCREEN] of Medicine Future Scheduled 2021-05-04 TETANUS SHOT (ADULT) [employer] Test 15:51:29 [code = TETANUS SHOT of Medi cine (ADULT)] Future Scheduled 2021-05-04 US RENAL BILATERAL Expected: [employer] Test 00:00:00 [code = 73766] 05/04/2021, of Medicine Expires: 05/04/2021 Future Scheduled [...] SCREENING] Future Scheduled 2021-01-03 COVID-19 Vaccine (1) [employer] Test 08:34:34 [code = COVID-19 of Medicine Vaccine (1)] Future Scheduled 2021-01-03 ZOSTER VACCINE (1 of [employer] Test 08:34:34 2) [code = ZOSTER of Medicin e VACCINE (1 of 2)] Future Scheduled 2021-01-03 Screening for [facility] Col lege Test 08:34:34 osteoporosis of Medicine (procedure) [code = 901771651] Future Scheduled 2021-01-03 Pneumococcal 65+ (1 [employer] Test 08:34:34 of 1 - PPSV23) [code of Medi cine = Pneumococcal 65+ (1 of 1 - PPSV23)] Future Scheduled 2021-01-03 MEDICARE AWV Art Kristine ege Test 08:34:34 (Initial) [code = of Medicin e MEDICARE AWV (Initial)] Future Scheduled 2021-01-03 FLU VACCINE > 6 [facility] C ollege Test 08:34:34 MONTHS [code = FLU of Medici ne VACCINE > 6 MONTHS] Future Scheduled 2021-01-03 FALL SCREEN [code = [employer] 08:34:34 FALL SCREEN] of Medicine Future Scheduled 2021-01-03 TETANUS SHOT (ADULT) [facility] Test 08:34:34 [code = TETANUS SHOT of Medi cine (ADULT)] Future Scheduled 2020-10-[address] [facility] Test 00:00:00 (#1) [code = Medical Center INFLUENZA VACCINE (#1)] Diagnostic Test 2020-07-11 US RENAL BILATERAL Expected: [facility] Pending 00:00:00 [code = 23319] 07/11/2020, of Medicine Expires: 01/11/2021 Future Scheduled [...] [facility] Test 00:00:00 of 2) [code = [facility] SHINGLES VACCINES (1 of 2)] Future Scheduled 1986 SHINGLES VACCINES ([address] [facility] Test 00:00:00 of 2) [code = [facility] SHINGLES VACCINES (1 of 2)] Future Scheduled 1948 COVID-19 VACCINE (1) [facility] Test 00:00:00 [code = COVID-[address] VACCINE (1)] Future Scheduled 1936 COVID-[address] [facility] Test 00:00:00 (#1) [code = [facility] COVID-19 VACCINE (#1)] Future Scheduled 1936 COVID-[address] [facility] Test 00:00:00 (#1) [code = [facility] COVID-19 VACCINE (#1)] Future Scheduled 1936 COVID-[address] [facility] Test 00:00:00 (#1) [code = [facility] COVID-19 VACCINE (#1)] Future Scheduled 1936 COVID-[address] [facility] Test 00:00:00 (#1) [code = [facility] COVID-19 VACCINE (#1)] Future Scheduled 1936 COVID-[address] [facility] Test 00:00:00 (#1) [code = [facility] COVID-19 VACCINE (#1)] Future Scheduled 1936 COVID-[address] [facility] Test 00:00:00 (#1) [code = [facility] COVID-19 VACCINE (#1)] Future Scheduled 1936 COVID-[address] [facility] Test 00:00:00 (#1) [code = [facility] COVID-19 VACCINE (#1)] Future Scheduled 1936 COVID-[address] [facility] Test 00:00:00 (#1) [code = [facility] COVID-19 VACCINE (#1)] Future Scheduled 1936 DXA SCAN [code = DXA [facility] Test 00:00:00 SCAN] [facility] Future Scheduled 1936 DXA SCAN [...] SCAN] Medical Center Future Scheduled PTH,INTACT,WITH Ordered: [facility] C ollege Test CALCIUM,PO4,CREAT 10/07/2019 of Medicin e [code = NOCPT] Future Scheduled TETANUS SHOT (ADULT) [employer] Test [code = TETANUS SHOT of Medi cine (ADULT)] Future Scheduled ZOSTER VACCINE (1 of [employer] Test 2) [code = ZOSTER of Medicin e VACCINE (1 of 2)] Future Scheduled OSTEOPOROSIS [facility] Kristine ege Test SCREENING [code = of Medicin e OSTEOPOROSIS SCREENING] Future Scheduled MEDICARE AWV [facility] Kristine ege Test (Initial) [code = of Medicin e MEDICARE AWV (Initial)] Future Scheduled FLU VACCINE > 6 [facility] C ollege Test MONTHS [code = FLU of Medici ne VACCINE > 6 MONTHS] Future Scheduled FALL SCREEN [code = [employer] FALL SCREEN] of Medicine Future Scheduled BMI FOLLOW UP PLAN [facility] r College Test [code = BMI FOLLOW of Medici ne UP PLAN] Future Scheduled ZOSTER VACCINE (1 of [employer] Test 2) [code = ZOSTER of Medicin e VACCINE (1 of 2)] Future Scheduled OSTEOPOROSIS [facility] Kristine ege Test SCREENING [code = of Medicin e OSTEOPOROSIS SCREENING] Future Scheduled MEDICARE IPPE [facility] Col lege Test (WELCOME TO of Medicine MEDICARE) [code = MEDICARE IPPE (WELCOME TO MEDICARE)] Future Scheduled FLU VACCINE > 6 [facility] C ollege Test MONTHS [code = FLU of Medici ne VACCINE > 6 MONTHS] Future Scheduled FALL SCREEN [code = [employer] FALL SCREEN] of Medicine Future Scheduled TETANUS SHOT (ADULT) [employer] Test [code = TETANUS SHOT of Medi cine (ADULT)] Future Scheduled COVID-19 Vaccine (1) [employer] Test [code = COVID-19 of Medicine Vaccine (1)] Future Scheduled BMI FOLLOW UP PLAN [employer] Test [code = BMI FOLLOW of Medici ne UP PLAN] Future Scheduled ZOSTER VACCINE (1 of [employer] Test 2) [code = ZOSTER of Medicin e VACCINE (1 of 2)] Future Scheduled Screening for [facility] Col lege Test osteoporosis of Medicine (procedure) [code = 182084927] Future Scheduled MEDICARE IPPE [facility] Col lege Test (WELCOME TO of Medicine MEDICARE) [code = MEDICARE IPPE (WELCOME TO MEDICARE)] Future Scheduled FLU VACCINE > 6 [facility] C ollege Test MONTHS [code = FLU of Medici ne VACCINE > 6 MONTHS] Future Scheduled FALL SCREEN [code = [employer] FALL SCREEN] of Medicine Future Scheduled TETANUS SHOT (ADULT) [employer] Test [code = TETANUS SHOT of Medi cine (ADULT)] Encounters Start End Encounter Admission Attending Care Care Encounter Source Date/Time Date/Time Type Type Clinicians Facility Department ID 2020-11-17 Inpatient ER GUILLERMO, [facility] Urology [id number] [facility] 14:52:09 LILIANA 2022-10-07 2022-10-07 Outpatient WON SALDIVAR [facility] [id number] Univers 11:20:00 11:20:00 [facility]22[facility]23 [facility] 1.2.840.114 [id number] Univers 00:00:00 00:00:00 Formerly [facility] 350.1.13.10 ity of [place] 4.2.7.2.686 Kilo as KRZYSZTOF?BLEA [phone] [address] MEDICAL OFFICE BUILDING 2022-04-22 2022-04-22 [facility] 1.2.840.114 [id number] Univers 00:00:00 00:00:00 Angela HEALTH 350.1.13.10 ity of [place] 4.2.7.2.686 Kilo as KRZYSZTOF?BLEA [phone] [address] MEDICAL OFFICE BUILDING 2022-04-15 2022-04-15 Outpatient Braulio CUNNINGHAM [facility] [id number] Univers 09:20:00 09:20:00 ANGELA [facility] 2022-04-12 2022-04-12 Orders Doctor LILLIANA 1.2.840.114 [id number] Univers 00:00:00 00:00:00 Only Unassigned, MACKENZIE 350.1.13.10 ity of [place] [facility] 4.2.7.2.686 Kilo as [phone] [address] 2022-04-11 2022-04-11 Outpatient WON SALDIVAR [facility] [id number] Univers 09:00:00 09:00:00 JACEWON Dias [facility] 2022-04-08 2022-04-08 Outpatient WON SALDIVAR [facility] [id number] Univers 13:40:00 14:51:58 WON MATT [facility] 2022-04-08 2022-04-08 Office Jace [facility] 1.2.840.114 [id number] Univers 13:40:00 14:51:[address] [facility] 350.1.13.10 ity of [place] 4.2.7.2.686 Kilo as KRZYSZTOF?BLEA [phone] [address] MEDICAL OFFICE [facility] 2022-04-08 2022-04-08 Nurse Nurse, Thom-Db Neurology [facility] 1. 2.840.114 [id number] Univers 13:00:00 14:50:23 Visit Unknown, Attending HEALTH 350.1.13.10 [facility] 4.2.7.2.686 Kilo as KRZYSZTOF?BLEA [phone] [address] MEDICAL OFFICE [facility] 2022-04-03 2022-04-03 Orders Doctor LILLIANA 1.2.840.114 [id number] Univers 00:00:00 00:00:00 Only Unassigned, MACKENZIE 350.1.13.10 ity of [place] [facility] 4.2.7.2.686 Kilo as [phone] [address] 2022-03-25 2022-03-25 Office QI Peñaloza 1.2.840.114 [id number] [facility] 10:20:00 11:00:00 Visit Emma AMBULATOR 350.1.13.21 College Y 0.2.7.2.686 of [phone] [facility] 335 e 2022-03-24 2022-03-24 Telephone [facility] 1.2.512.749 [id number] Univers 00:00:00 00:00:00 Formerly [facility] 350.1.13.10 ity of [place] 4.2.7.2.686 Kilo as KRZYSZTOF?BLEA [phone] La salvatore ESTRADA 044 [facility] OFFICE [facility] 2022-03-18 2022-03-18 Telephone [facility] 1.2.278.253 [id number] Univers 00:00:00 00:00:00 Formerly [facility] 350.1.13.10 ity of [place] 4.2.7.2.686 Kilo as KRZYSZTOF?BLEA [phone] La salvatore ESTRADA 044 [facility] OFFICE [facility] 2022-03-15 2022-03-15 Telephone [facility] 1.2.840.114 [id number] [facility] 00:00:00 00:00:00 [facility] 350.1.13.10 ity of [place] 4.2.7.2.686 Kilo as KRZYSZTOF?BLEA [phone] La salvatore ESTRADA 092 [facility] OFFICE [facility] 2022-03-11 2022-03-11 Digital Media Producer Lab, Ang - Db [facility] 1.2.840.1 14 [id number] Univers 15:30:00 15:47:42 Visit [facility] 350.1.13.10 ity [facility] 4.2.7.2.686 Kilo as KRZYSZTOF?BLEA [phone] La salvatore ESTRADA 353 [facility] OFFICE [facility] 2022-03-11 2022-03-11 Outpatient R OCTAVIO [facility] [id number] Univers 13:40:00 15:35:06 [facility] 2022-03-11 2022-03-11 Office [facility] 1.2.840.114 [id number] Univers 13:40:00 15:35:06 Visit Formerly [facility] 350.1.13.10 ity of [place] 4.2.7.2.686 Kilo as KRZYSZTOF?BLEA [phone] La salvatore ESTRADA [address] [place] MEDICAL OFFICE BUILDING 2022-03-11 2022-03-11 Office Nirmala [facility] 1.2.840.114 [id number] Univers 08:00:00 09:15:25 Visit [facility] 350.1.13.10 it y of [place] 4.2.7.2.686 Kilo as KRZYSZTOF?BLEA [id number] La salvatore ESTRADA [address] [place] MEDICAL OFFICE [facility] 2022-03-04 2022-03-04 Outpatient R NIRMALA [facility] [id number] Univers 10:30:00 10:30:00 [facility] 2022-02-25 Urgent Tamela Lucia [facility] 1.2.840.114 [id number] Univers 17:40:00 18:00:00 Care Unknown, [facility] 350.1.13.10 ity of [place] 4.2.7.2.686 Kilo as KRZYSZTOF?BLEA [phone] [facility] 370 [facility] OFFICE [facility] 2022-02-25 2022-02-25 Outpatient Braulio LUCAI [facility] [id number] Univers 17:40:00 17:40:00 TAMELA [facility] 2022-02-25 2022-02-25 Outpatient Braulio [facility] [id number] Univers 14:00:00 14:00:00 [facility] 2022-02-23 2022-02-23 Orders Doctor LILLIANA 1.2.840.114 [id number] Univers 00:00:00 00:00:00 Only Unassigned, MACKENZIE 350.1.13.10 ity of [place] [facility] 4.2.7.2.686 Kilo as [phone] [address] 2022-01-21 2022-01-21 Outpatient Braulio [facility] [id number] Univers 15:40:00 16:34:00 [facility] 2022-01-212022-01-21 Office [facility] 1.2.840.114 [id number] Univers 15:40:00 16:34:00 Visit Formerly [facility] 350.1.13.10 ity of [place] 4.2.7.2.686 Kilo as KRZYSZTOF?BLEA [phone] [address] MEDICAL OFFICE [facility] 2021-12-31 2021-12-31 [facility] [id number] Univers 11:20:00 11:20:00 ANGELA it[facility] 2021-12-31 2021-12-31 Orders Doctor LILLIANA 1.2.840.114 [id number] Univers 00:00:00 00:00:00 Only Unassigned, MACKENZIE 350.1.13.10 [facility] 4.2.7.2.686 Kilo as [phone] [address] 2021-12-24 2021-12-24 Outpatient R ODILON [facility] [id number] Univers 14:30:00 15:49:08 CHARY it[facility] 2021-12-24 2021-12-24 Office [facility] 1.2.840.114 [id number] Univers 14:30:00 15:49:08 Visit Chary Goyal HEALTH 350.1.13.10 i ty of [place] 4.2.7.2.686 Kilo as KRZYSZTOF?BLEA [phone] [address] OFFICE [facility] 2021-12-23 2021-12-23 Abstract [facility] 1.2.840.114 [id number] Univers 00:00:00 00:00:00 Angela HEALTH 350.1.13.10 ity of [place] 4.2.7.2.686 Kilo as KRZYSZTOF?BLEA [phone] [address] OFFICE [facility] 2021-12-17 2021-12-17 Outpatient R BETO [facility] [id number] Univers 11:00:00 11:00:00 DANIEL mitchell [facility] 2021-12-17 2021-12-17 Refill [facility] 1.2.840.114 [id number] Univers 00:00:00 00:00:00 [place] HEALTH 350.1.13.10 ity of [place] 4.2.7.2.686 Kilo as KRZYSZTOF?BLEA [phone] La salvatore ESTRADA [address] [place] [address] MEDICAL OFFICE [facility] 2021-12-10 2021-12-10 Outpatient R OCTAVIO, [facility] [id number] Univers 09:20:00 09:20:00 ANGELA it[facility] 2021-12-10 2021-12-10 Outpatient R OCTAVIO, [facility] [id number] Univers 09:20:00 09:20:00 APOPKA ity [facility] 2021-12-03 2021-12-03 Outpatient R OCTAVIO, [facility] [id number] Univers 13:40:00 14:38:59 [facility] 2021-12-03 2021-12-03 Office [facility] 1.2.840.114 [id number] Univers 13:40:00 14:38:59 Visit Formerly [facility] 350.1.13.10 ity of [place] 4.2.7.2.686 Kilo as KRZYSZTOF?BLEA [phone] La salvatore ESTRADA [address] [place] [address] OFFICE [facility] 2021-11-27 2021-11-27 Refill [facility] 1.2.840.114 [id number] Univers 00:00:00 00:00:00 [place] HEALTH 350.1.13.10 ity of [place] 4.2.7.2.686 Kilo as KRZYSZTOF?BLEA [phone] La salvatore ESTRADA [address] [place] [address] OFFICE [facility] 2021-11-26 2021-11-26 Outpatient WON SALDIVAR [facility] [id number] Univers 15:40:00 16:24:04 WON MATT [facility] 2021-11-26 2021-11-26 Office Jace [facility] 1.2.840.114 [id number] Univers 15:40:00 16:24:04 Visit Won [facility] 350.1.13.10 ity [facility] 4.2.7.2.686 Kilo as KRZYSZTOF?BLEA [phone] La dical [address] MEDICAL OFFICE BUILDING 2021-11-19 2021-11-19 Outpatient R WON MATT [facility] [id number] Univers 09:57:12 23:59:00 WON MATT [facility] 2021-11-19 2021-11-19 Hospital [facility] 1.2.897.344 [id number] Univers 09:57:12 23:59:00 Encounter [facility] 350.1.13.10 ity of [place] 4.2.7.2.686 [facility] [phone] [facility] angelica [address] 2021-11-18 2021-11-18 Orders Doctor LILLIANA 1.2.840.114 [id number] Univers 00:00:00 00:00:00 Only Unassigned, MACKENZIE 350.1.13.10 ity of [place] [facility] 4.2.7.2.686 [facility] [phone] [facility] angelica [address] 2021-11-12 2021-11-12 Office [facility] 1.2.840.114 [id number] [facility] 14:36:20 15:29:10 Visit , ITALIA AMBULATOR 350.1.13.21 [facility] 0.2.7.2.686 [phone] [facility] raimundo 800 e 2021-11-09 2021-11-09 Outpatient Braulio PÉREZ [facility] [id number] Univers 13:00:00 13:00:00 DANIEL woodruff f [facility] 2021-11-05 2021-11-05 Outpatient R OCTAVIO [facility] [id number] Univers 10:40:00 10:40:00 ANGELA [facility] 2021-11-02 2021-11-02 Outpatient WON SALDIVAR [facility] [id number] Univers 13:00:00 14:14:42 WON MATT [facility] 2021-11-02 2021-11-02 Office Jace [facility] 1.2.840.114 [id number] Univers 13:00:00 14:14:[address] [facility] 350.1.13.10 ity of [place] 4.2.7.2.686 Kilo as KRZYSZTOF?BLEA [phone] [address] MEDICAL OFFICE [facility] 2021-11-01 2021-11-01 Office Link, [facility] 1.2.840.114 [id number] [facility] 09:45:00 10:00:00 Visit Keerthi Dias AMBULATOR 350.1.13.21 College Y 0.2.7.2.686 of [phone] [facility] 300 e 2021-11-01 2021-11-01 Orders Doctor LILLIANA 1.2.840.114 [id number] Univers 00:00:00 00:00:00 Only Unassigned, MACKENZIE 350.1.13.10 ity of [place] [facility] 4.2.7.2.686 Kilo as [phone] [address] 2021-10-28 2021-10-28 Telephone [facility] 1.2.428.425 [id number] Univers 00:00:00 00:00:00 [facility] 350.1.13.10 ity of [place] 4.2.7.2.686 Kilo as KRZYSZTOF?BLEA [phone] [address] MEDICAL OFFICE [facility] 2021-10-26 2021-10-26 Telephone [facility] 1.2.346.671 [id number] Univers 00:00:00 00:00:00 Angela HEALTH 350.1.13.10 ity of [place] 4.2.7.2.686 Kilo as KRZYSZTOF?BLEA [id number] [address] MEDICAL OFFICE [facility] 2021-10-25 2021-10-25 Outpatient R [facility] [id number] Univers 14:40:00 15:55:58 ANGELA [facility] 2021-10-25 2021-10-25 Office [facility] 1.2.840.114 [id number] Univers 14:40:00 15:55:58 Visit Formerly [facility] 350.1.13.10 ity of [place] 4.2.7.2.686 Kilo as KRZYSZTOF?BLEA [phone] [address] MEDICAL OFFICE [facility] 2021-10-25 2021-10-25 Telephone [facility] 1.2.169.326 [id number] Univers 00:00:00 00:00:00 Angela HEALTH 350.1.13.10 ity of [place] 4.2.7.2.686 Kilo as KRZYSZTOF?BLEA [phone] [address] OFFICE [facility] 2021-10-25 2021-10-25 Orders Doctor TIJERINA 1.2.840.114 [id number] Univers 00:00:00 00:00:00 Only Unassigned, MACKENZIE 350.1.13.10 [facility] 4.2.7.2.686 Kilo as [phone] [address] 2021-10-20 2021-10-20 Telephone [facility] 1.2.444.704 [id number] Univers 00:00:00 00:00:00 Angela HEALTH 350.1.13.10 [facility] 4.2.7.2.686 Kilo as KRZYSZTOF?BLEA [phone] [address] 2021-09-24 2021-09-24 [facility] [id number] Univers 08:40:00 08:40:00 [facility] 2021-09-24 2021-09-24 Outpatient [facility] [id number] Univers 08:30:00 08:30:00 [facility] 2021-09-17 2021-09-17 Outpatient WON SALDIVAR [facility] [id number] Univers 11:00:00 11:00:00 WON MATT [facility] 2021-09-13 2021-09-13 [facility] 1.2.701.119 [id number] Univers 00:00:00 00:00:00 Angela HEALTH 350.1.13.10 ity of [place] 4.2.7.2.686 Kilo as KRZYSZTOF?BLEA [phone] [address] 2021-09-13 2021-09-13 Orders Doctor TIJERINA 1.2.840.114 [id number] Univers 00:00:00 00:00:00 Only Unassigned, MACKENZIE 350.1.13.10 ity of [place] [facility] 4.2.7.2.686 Kilo as [phone] [address] 2021-09-10 2021-09-10 Outpatient R OCTAVIO, [facility] [id number] Univers 16:00:00 17:05:49 ANGELA it[facility] 2021-09-10 2021-09-10 Office [facility] 1.2.840.114 [id number] Univers 16:00:00 17:05:49 Visit Formerly [facility] 350.1.13.10 ity of [place] 4.2.7.2.686 Kilo as KRZYSZTOF?BLEA [phone] [address] OFFICE [facility] 2021-09-05 2021-09-05 Telephone [facility] 1.2.293.215 [id number] Univers 00:00:00 00:00:00 Chary A HEALTH 350.1.13.10 i ty of [place] 4.2.7.2.686 Kilo as KRZYSZTOF?BLEA [phone] [address] OFFICE [facility] 2021-09-03 2021-09-03 Digital Media Producer Lab, Ang - [facility] 1.2.840.1 14 [id number] Univers 07:45:00 08:09:03 Visit Octavio [facility] 350.1.13.10 ity of [place] 4.2.7.2.686 Kilo as KRZYSZTOF?BLEA [phone] [facility] [address] [place] MEDICAL OFFICE [facility] 2021-09-03 2021-09-03 Out[facility] [id number] Univers 07:45:00 07:45:00 ANGELA it[facility] 2021-09-02 2021-09-02 Telephone [facility] 1.2.840.399 [id number] Univers 00:00:00 00:00:00 Angela HEALTH 350.1.13.10 ity of [place] 4.2.7.2.686 Kilo as KRZYSZTOF?BLEA [phone] [address] OFFICE [facility] 2021-08-27 2021-08-27 Digital Media Producer Lab, Ang - Db [facility] 1.2.840.1 14 [id number] Univers 15:30:00 15:45:[address] [facility] 350.1.13.10 ity of [place] 4.2.7.2.686 Kilo as KRZYSZTOF?BLEA [phone] [facility] 353 [facility] OFFICE [facility] 2021-08-27 2021-08-27 Outpatient R OCTAVIO [facility] [id number] Univers 14:00:00 15:19:02 ANGELA [facility] 2021-08-27 2021-08-27 [facility] 1.2.840.114 [id number] Univers 14:00:00 15:19:02 Visit [facility]ly [facility] 350.1.13.10 ity of [place] 4.2.7.2.686 Kilo as KRZYSZTOF?BLEA [phone] [address] OFFICE [facility] 2021-08-20 2021-08-20 Refill [facility] 1.2.840.114 [id number] Univers 00:00:00 00:00:00 Chary A HEALTH 350.1.13.10 i ty of [place] 4.2.7.2.686 Kilo as KRZYSZTOF?BLEA [phone] [address] OFFICE [facility] 2021-07-09 2021-07-09 Outpatient R ODILON [facility] [id number] Univers 16:00:00 17:29:20 CHARY [facility] 2021-07-09 2021-07-09 Office [facility] 1.2.840.114 [id number] Univers 16:00:00 17:29:20 Visit Chary A HEALTH 350.1.13.10 i ty of [place] 4.2.7.2.686 Kilo as KRZYSZTOF?BLEA [phone] [address] OFFICE [facility] 2021-07-09 2021-07-09 [facility] [id number] Univers 16:00:00 17:29:20 [facility] 2021-06-09 Beto Edenhim, [facility] 1.2.840.114 [id number] Univers 00:00:00 00:00:00 Management Rania HEALTH 350.1.13.10 ity [facility] 4.2.7.2.686 Kilo as KRZYSZTOF?BLEA [phone] [address] MEDICAL OFFICE BUILDING 2021-06-09 2021-06-09 Tapan Mccartney [facility] 1.2.840.114 [id number] Univers 00:00:00 00:00:00 (Out) Ree HEALTH 350.1.13.10 it y [facility] 4.2.7.2.686 Kilo as KRZYSZTOF?BLEA [phone] [address] OFFICE [facility] 2021-06-08 2021-06-08 Laboratory Only, Ang Db Test [facility] 1.2.8 40.114 [id number] Univers 09:15:00 09:30:[address] [facility] 350.1.13.10 ity of [place] 4.2.7.2.686 Kilo as KRZYSZTOF?BLEA [phone] [address] MEDICAL OFFICE [facility] 2021-06-08 2021-06-08 Outpatient R RAMBO [facility] [id number] Univers 09:15:00 09:15:00 TERA ity of [facility] 2021-05-17 2021-05-17 Outpatient R JOEL [facility] [id number] Univers 13:30:00 13:30:00 karina NAYAK [facility] 2021-05-13 2021-05-13 Orders Doctor LILLIANA 1.2.840.114 [id number] Univers 00:00:00 00:00:00 Only Unassigned, MACKENZIE 350.1.13.10 ity of [place] [facility] 4.2.7.2.686 Kilo as [phone] [address] 2021-05-03 2021-05-03 Office LINK, [facility] 1.2.840.114 [id number] [facility] 10:12:54 11:16:44 Visit KEERTHI AMBULATOR 350.1.13.21 College Y 0.2.7.2.686 of [phone] Medi raimundo 300 e 2021-05-03 2021-05-03 Outpatient BCM [facility] [id number] [facility] 00:00:00 00:00:00 Colleg e of Medicin e 2021-05-03 2021-05-03 Outpatient BCM [facility] [id number] [facility] 00:00:00 00:00:00 Colleg e of Medicin e 2021-05-03 2021-05-03 Telephone [facility] 1.2.610.581 [id number] Univers 00:00:00 00:00:00 Amaya HEALTH 350.1.13.10 it y of [place] 4.2.7.2.686 Kilo as KRZYSZTOF?BLEA [phone] [address] MEDICAL OFFICE [facility] 2021-04-30 2021-04-30 Telephone [facility] 1.2.843.318 [id number] Univers 00:00:00 00:00:00 Gerardo HEALTH 350.1.13.10 it y of [place] 4.2.7.2.686 Kilo as KRZYSZTOF?BLEA [phone] [address] MEDICAL OFFICE [facility] 2021-04-29 2021-04-29 Nurse LILLIANA Jain 1.2.840.114 [id number] Univers 00:00:00 00:00:00 Triage Pamela MANN 350.1.13.10 it y of [facility] 4.2.7.2.686 Kilo as [phone] [facility] 019 [place] 2021-04-29 2021-04-29 Isa [facility] 1.2.840.114 [id number] Univers 00:00:00 00:00:00 Austin A ETTERS 350.1.13.10 ity of [place] [phone] [address] 2021-04-23 2021-04-23 Outpatient R BETO [facility] [id number] Univers 09:00:00 09:00:00 DANIEL mitchell [facility] 2021-04-14 2021-04-14 Outpatient R JOCE [facility] [id number] Univers 09:30:00 09:30:00 WONDIFUL ity o f [facility] 2021-04-14 2021-04-14 Outpatient R JOCE [facility] [id number] Univers 09:30:00 09:30:00 WONDIFUL ity o f [facility] 2021-04-05 2021-04-05 Outpatient R ARIAN, [facility] [id number] Univers 10:30:00 10:30:00 JESSICA ity of [facility] 2021-04-05 2021-04-05 Orders Doctor LILLIANA 1.2.840.114 [id number] Univers 00:00:00 00:00:00 Only Unassigned, MACKENZIE 350.1.13.10 [facility] 4.2.7.2.686 Kilo as [phone] [address] 2021-03-22 2021-03-22 Outpatient R LYLA [facility] [id number] Univers 11:30:00 12:40:29 AMAYA ity of [facility] 2021-03-22 2021-03-22 Office [facility] 1.2.840.114 [id number] Univers 11:30:00 12:40:29 Visit Amaya HEALTH 350.1.13.10 it y of [place] 4.2.7.2.686 [place]ilo as KRZYSZTOF?BLEA [phone] [facility] MARIZA[address] MEDICAL OFFICE BUILDING 2021-03-21 2021-03-21 Isa [facility] 1.2.840.114 [id number] Univers 00:00:00 00:00:00 Wondiful A HEALTH 350.1.13.10 ity of [place] 4.2.7.2.686 Kilo as PROFESSIO [phone] La adolphne KIT [address] [place] [address] OFFICE BUILDING ONE 2021-02-22 2021-02-22 Office LAST Eric 1.2.840.114 [id number] Univers 14:30:00 15:00:00 Visit Jessica R Y HEALTH 350.1.13.10 ity of [facility] 4.2.7.2.686 [place] [id number] [facility] [address] 2021-02-22 2021-02-22 Outpatient R ARIAN, [facility] [id number] Univers 14:30:00 14:30:00 JESSICA ity [facility] 2021-02-22 2021-02-22 Outpatient R ARIAN, [facility] [id number] Univers 14:30:00 14:30:00 JESSICA ity [facility] 2021-01-25 2021-01-25 Refill [facility] 1.2.840.114 [id number] Univers 00:00:00 00:00:00 Wondiful A HEALTH 350.1.13.10 ity of [place] 4.2.7.2.686 Kilo as PROFESSIO [phone] [address] OFFICE [facility] ONE 2021-01-21 2021-01-21 Beto [facility] 1.2.840.114 [id number] Univers 00:00:00 00:00:00 Management Wondiful A HEALTH 350.1.13.10 ity of [place] 4.2.7.2.686 Kilo as KRZYSZTOF?BLEA [phone] [address] OFFICE BUILDING 2021-01-21 2021-01-21 Beto [facility] 1.2.840.114 [id number] Univers 00:00:00 00:00:00 Management Wondiful A HEALTH 350.1.13.10 ity of [place] 4.2.7.2.686 Kilo as KRZYSZTOF?BLEA [phone] [address] MEDICAL OFFICE BUILDING 2021-01-20 2021-01-20 Outpatient R TERESITA [facility] [id number] Univers 09:25:28 23:59:00 SENDIL ity of [facility] 2021-01-20 2021-01-20 [facility] Austin Hobson [facility] 1.2.8 40.114 [id number] Univers 09:00:00 23:59:00 Ceci Aguilar [place] 350.1.1 3.10 ity of [place] 4.2.7.2.686 [place] [phone] [facility] 850 [place] 2021-01-15 2021-01-15 Outpatient R JOCE [facility] [id number] Univers 10:10:00 10:10:00 WONDIFUL ity o f [facility] 2021-01-15 2021-01-15 Imm/Inj Vaccine, Ang Db Cbc Fam [facility] 1. 2.840.114 [id number] Univers 08:47:34 08:57:34 Visit Austin Hobson HEALTH 350.1.13.1 0 ity of [place] 4.2.7.2.686 Kilo as KRZYSZTOF?BLEA [phone] [facility] 044 [place] MEDICAL OFFICE [facility] 2021-01-15 2021-01-15 Digital Media Producer Lab, Ang - Db [facility] 1.2.840.1 14 [id number] Univers 08:20:53 08:35:53 Visit Austin Hobson HEALTH 350.1.13.1 0 ity of [place] 4.2.7.2.686 Kilo as KRZYSZTOF?BLEA [phone] La salvatore ESTRADA [address] [place] MEDICAL OFFICE [facility] 2021-01-14 2021-01-14 Office [facility] 1.2.840.114 [id number] Univers 13:02:10 13:52:29 Visit Austin Goyal HEALTH 350.1.13.10 ity of [place] 4.2.7.2.686 Kilo as KRZYSZTOF?BLEA [phone] [address] OFFICE [facility] 2021-01-14 2021-01-14 Outpatient R JOCE [facility] [id number] Univers 13:00:00 13:52:29 WONDIFUL ity o f [facility] 2020-12-23 2021-01-10 Office LINK, [facility] 1.2.840.114 [id number] 99 [facility] 15:05:24 13:24:06 Visit KEERTHI AMBULATOR 350.1.13.21 College Y 0.2.7.2.686 of [phone] [facility] 300 e 2020-12-04 2020-12-04 Hospital [facility] 1.2.287.415 [id number] Univers 12:31:25 23:59:00 Encounter Wondiful A [place] 350.1.13.10 ity of [place].2.7.2.686 [place] [phone] [facility] 850 [place] 2020-12-04 2020-12-04 Outpatient R JOCE INDELIA [facility] [id number] Univers 10:15:00 12:44:29 WONDIFUL ity o f [facility] 2020-12-04 2020-12-04 Office Joce [facility] 1.2.840.114 [id number] Univers 10:12:12 12:44:29 Visit Wondiful A HEALTH 350.1.13.10 ity of [place] 4.2.7.2.686 Kilo as KRZYSZTOF?BLEA [phone] [address] MEDICAL OFFICE [facility] 2020-10-16 2020-10-16 Patient Joce [facility] 1.2.840.114 [id number] Univers 00:00:00 00:00:00 Secure Msg Wondiful A Health 350.1.13.10 ity of [place] 4.2.7.2.686 [place]ilo as Krzysztof?Blea [phone] [address] Office [facility] 2020-10-13 2020-10-13 Telephone Joce [facility] 1.2.840.114 [id number] Univers 00:00:00 00:00:00 Wondiful A Health 350.1.13.10 ity of [place] 4.2.7.2.686 Kilo as Krzysztof?Blea [phone] [address] Medical Office [facility] 2020-10-08 2020-10-08 Patient Doctor TIJERINA 1.2.840.114 [id number] Univers 00:00:00 00:00:00 Secure Msg Unassigned, MACKENZIE 350.1.13.10 ity of [place] [facility] 4.2.7.2.686 Kilo as [phone] [facility] 019 [place] 2020-10-08 2020-10-08 Refill Joce [facility] 1.2.840.114 [id number] Univers 00:00:00 00:00:00 Wondiful A Health 350.1.13.10 ity of [place] 4.2.7.2.686 Kilo as Krzysztof?Blea [phone] La salvatore estrada [address] [place] [address] Medical Office Building 2020-10-08 2020-10-08 Telephone Joce [facility] 1.2.840.114 [id number] Univers 00:00:00 00:00:00 Wondiful A Health 350.1.13.10 ity of [place] 4.2.7.2.686 Kilo as Krzysztof?Blea [phone] La salvatore estrada [address] [place] [address] Medical Office Building 2020-10-06 2020-10-06 [facility] [id number] Univers 09:00:00 09:00:00 WONDIFUL ity o f [facility] 2020-10-05 2020-10-05 Office [facility] 1..840.114 [id number] Univers 11:08:16 12:09:41 Visit Wondiful A Health 350.1.13.10 ity of [place] 4.2.7.2.686 Kilo as Krzysztof?Blea [phone] [facility] [address] Office [facility] 2020-10-05 2020-10-05 Outpatient R JOCE [facility] [id number] Univers 11:15:00 11:15:00 WONDIFUL ity o f [facility] 2020-09-15 2020-09-15 Outpatient R JOCE [facility] [id number] Univers 14:30:00 14:30:00 WONDIFUL ity o f [facility] 2020-08-06 2020-08-06 Outpatient R BETO [facility] [id number] Univers 00:00:00 00:00:00 QIANGJUN ity o f [facility] 2020-07-20 2020-07-20 Digital Media Producer Lab, Adc Fam Pob I [facility] 1.. 840.114 [id number] Univers 10:43:24 11:03:24 Visit Daniel Pérez Health 350.1.13.10 ity of [place] 4.2.7.2.686 Kilo as Professio [phone] La salvatore farrar [address] [place] [address] Office Building One 2020-07-20 2020-07-20 Office [facility] 1.2.840.114 [id number] Univers 09:55:53 10:27:33 Visit Daniel Harris 350.1.13.10 ity of [place].2.7.2.[place] Profess[place] [phone] [facility] 059 [facility] 2020-07-20 2020-07-20 Outpatient [facility] [id number] Univers 10:00:00 10:00:00 DANIEL collins o f [facility] 2020-06-02 2020-06-02 Telephone [facility] 1.2.840.114 [id number] Univers 00:00:00 00:00:00 Wondiful A Health 350.1.13.10 ity of [place] 4.2.7.2.686 Kilo as Professio [phone] [facility] 044 [facility] One 2020-06-01 2020-06-01 Refill [facility] 1.2.840.114 [id number] Univers 00:00:00 00:00:00 Daniel Harris 350.1.13.10 ity of [place].2.7.2.[place] Profess[place] [phone] [facility] 059 [facility] 2020-05-18 2020-05-18 Orders Doctor LILLIANA 1.2.840.114 [id number] Univers 00:00:00 00:00:00 Only Unassigned, MACKENZIE 350.1.13.10 ity of [place] [facility] 4.2.7.2.686 Kilo as [phone] [facility] [address] 2020-05-04 2020-05-04 Office LINK, [facility] 1.2.840.114 [id number] 34 [facility] 10:43:07 12:09:48 Visit KEERTHI AMBULATOR 350.1.13.21 College Y 0.2.7.2.686 of [phone] [facility] 300 e 2020-04-29 2020-04-29 Telephone [facility] 1.2.094.813 [id number] 00:00:00 00:00:00 Maurochevy Trena 350.1.13.10 [place] 4.2.7.2.686 Professio [phone] [address] 2020-04-29 2020-04-29 Refill [facility] 1.2.840.114 [id number] 00:00:00 00:00:00 Daniel [place] 350.1.13.10 [place] 4.2.7.2.686 Professio [phone] [address] 2020-04-29 2020-04-29 Telephone [facility] 1.2.090.012 [id number] Univers 00:00:00 00:00:00 Qiashayne [place] 350.1.13.10 ity of [place].2.[place] [phone] [address] 2020-04-29 2020-04-29 Refill [facility] 1.2.840.114 [id number] [facility] 00:00:00 00:00:00 Daniel [place] 350.1.13.10 ity of [place].7.2.[place] Profess[place] [phone] [address] 2020-04-25 2020-04-25 Urgent Provider, [facility] 1.2.809.965 [id number] 10:12:47 10:32:47 Care [facility] 350.1.13.10 Care [place] 4.2.7.2.686 Professio [phone] [address] 2020-04-25 2020-04-25 Urgent Provider, Ang Urgent [facility] 1.2.840.114 [id number] [facility] 10:12:47 10:32:47 Care Mine No [facility] 350.1.13.10 ity of [place] 4.2.7.2.686 Kilo as Professio [phone] [address] Office [facility] 2020-04-25 2020-04-25 Outpatient R ONEAL [facility] [id number] Univers 10:20:00 10:20:00 MINE mitchell [facility] 2020-04-15 2020-04-15 Telephone Joce [facility] 1.2.840.114 [id number] 00:00:00 00:00:00 Wondiful A Health 350.1.13.10 [place] 4.2.7.2.686 Professio [phone] [place] [address] Office Building One 2020-04-15 2020-04-15 Telephone Joce [facility] 1.2.840.114 [id number] Univers 00:00:00 00:00:00 Wondiful A Health 350.1.13.10 ity of [place] 4.2.7.2.686 [place]ilo as Professio [phone] [address] Office Building One 2020-03-07 2020-03-07 Patient Tyler [facility] 1.2.840.114 [id number] 00:00:00 00:00:00 Outreach Ethan PRIMARY 350.1.13.10 Herbie CARE 4.2.7.2.686 PAVILLION [phone] [facility] 2020-03-07 2020-03-07 Patient Tyler [facility] 1.2.840.114 [id number] Univers 00:00:00 00:00:00 Outreach Ethan PRIMARY 350.1.13.10 i ty of [place] C[place].2.7.2.[place] PAV[place]ION [phone] [address] 2020-01-16 2020-01-16 Outpatient R JOCE [facility] [id number] Univers 16:30:00 16:30:00 WONDIFUL ity o f [facility] 2020-01-16 2020-01-16 Telemedic [facility] 1.2.840.114 [id number] 16:09:25 16:24:25 ne Visit Wondiful A Health 350.1.13.10 [place] 4.2.7.2.686 Professio [phone] [place] [address] Office Building One 2020-01-16 2020-01-16 Telemedici [facility] 1.2.840.114 [id number] Univers 16:09:25 16:24:25 ne Visit Wondiful A Health 350.1.13.10 ity of [place] 4.2.7.2.686 Kilo as Professio [phone] La dical nal 044 [place] Office Building One 2020-01-12 2020-01-12 Orders Doctor LILLIANA 1.2.840.114 [id number] 00:00:00 00:00:00 Only Unassigned, MACKENZIE 350.1.13.10 [place] [facility] 4.2.7.2.686 [phone] 009 2020-01-12 2020-01-12 Orders Doctor LILLIANA 1.2.840.114 [id number] Univers 00:00:00 00:00:00 Only Unassigned, MACKENZIE 350.1.13.10 ity of [place] [facility] 4.2.7.2.686 Kilo as [phone] [facility] [address] 2020-01-06 2020-01-06 Office Link, [facility] 1.2.840.[id number] [place] [address] 10:46:16 11:44:31 Visit Keerthi Dais AMBULATOR 350.1.13.21 College Y 0.2.7.2.686 of [id number] [facility] 300 e 2020-01-06 2020-01-06 Office Link, [facility] 1.2.840.114 [id number] 10:46:16 11:44:31 Visit Keerthi E AMBULATOR 350.1.13.21 Y 0.2.7.2.686 [id number] 300 2019-12-16 2019-12-16 Beto Hobson, [facility] 1.2.840.114 [id number] 00:00:00 00:00:00 Management Wondiful A Health 350.1.13.10 [place] 4.2.7.2.686 Professio [phone] nal 044 Office Building One 2019-12-16 2019-12-16 Beto Hobson [facility] 1.2.840.114 [id number] Univers 00:00:00 00:00:00 Management Wondiful A Health 350.1.13.10 ity of [place] 4.2.7.2.686 [place]ilo as Professio [phone] La dical nal 044 [place] Office Building One 2019-12-12 2019-12-12 Digital Media Producer 1, Adc Lab [place] 1.2.840.114 [id number] 09:36:54 09:51:54 Visit [place] 350.1.13.10 [place] 4.2.7.2.686 [place] [phone] [facility] 2019-12-12 2019-12-12 Digital Media Producer 1, Adc Lab [facility] 1.2.840.114 [id number] [facility] 09:36:54 09:51:54 Visit Austin Hobson 350.1.13. 10 ity of [place].2.7.2.[place] [phone] [address] 2019-12-12 2019-12-12 Outpatient R [facility] [id number] Univers 08:30:00 08:30:00 ity of [facility] 2019-12-12 2019-12-12 Telephone Joce [facility] 1.2.840.114 [id number] 00:00:00 00:00:00 Wondiful A Health 350.1.13.10 [place] 4.2.7.2.686 Professio [phone] [place] [address] Office [facility] 2019-12-12 2019-12-12 Telephone Joce [facility] 1.2.840.114 [id number] Univers 00:00:00 00:00:00 Wondiful A Health 350.1.13.10 ity of [place] 4.2.7.2.686 [place] as Professio [phone] La dical [address] Office [facility] 2019-12-05 2019-12-05 Orders Doctor LILLIANA 1.2.840.114 [id number] 00:00:00 00:00:00 Only Unassigned, MACKENZIE 350.1.13.10 [facility] 4.2.7.2.686 [id number] 009 2019-12-05 2019-12-05 Orders Doctor LILLIANA 1.2.840.114 [id number] Univers 00:00:00 00:00:00 Only Unassigned, MACKENZIE 350.1.13.10 ity of [place] [facility] 4.2.7.2.686 Kilo as [phone] [facility] 009 [place] 2019-11-14 2019-11-14 Case Joce [facility] 1.2.840.114 [id number] 00:00:00 00:00:00 Management Wondiful A Health 350.1.13.10 [place] 4.2.7.2.686 Professio [phone] [place] [address] Office Building One 2019-11-14 2019-11-14 Beto Hobson [facility] 1.2.840.114 [id number] Univers 00:00:00 00:00:00 Management Wondiful A Health 350.1.13.10 ity of [place] 4.2.7.2.686 [place] Professio [phone] [address] Office Building One 2019-11-13 2019-11-13 Beto Hobson [facility] 1.2.840.114 [id number] 00:00:00 00:00:00 Management Antwandiful A Health 350.1.13.10 [place] 4.2.7.2.686 Professio [phone] [place] [address] Office Building One 2019-11-13 2019-11-13 Beto Hobson [facility] 1.2.840.114 [id number] Univers 00:00:00 00:00:00 Management Wondiful A Health 350.1.13.10 ity of [place] 4.2.7.2.686 [place]ilo as Professio [phone] [address] Office [facility] One 2019-11-08 2019-11-08 Digital Media Producer Lab, Adc Fam Pob I [facility] 1.2. 840.114 [id number] [facility] 11:16:17 11:26:17 Visit Austin Hobson Health 350.1.13.1 0 ity of [place] 4.2.7.2.686 Kilo as Professio [phone] [facility] [address] Office Building One 2019-11-08 2019-11-08 Office Joce [facility] 1.2.840.114 [id number] 09:44:58 11:00:23 Visit Jamilful A Health 350.1.13.10 [place] 4.2.7.2.686 Professio [phone] [place] [address] Office Building One 2019-11-08 2019-11-08 Office Joce [facility] 1.2.840.114 [id number] [facility] 09:44:58 11:00:23 Visit Wondiful A Health 350.1.13.10 ity of [place] 4.2.7.2.686 Kilo as Professio [phone] [address] One 2019-11-08 2019-11-08 Outpatient R JOCE [facility] [id number] Univers 08:45:00 08:45:00 WONDIFUL ity o f [facility] 2019-09-02 2019-11-04 Telemedici [facility] 1.2.840.114 [id number] [facility] 09:09:51 09:25:19 ne Visit Wondiful A [place] 350.1.13.10 ity of [place].2.[place].2.[place] [phone] [address] 2019-11-04 2019-11-04 Digital Media Producer Lab, Adc Fam Pob I [facility] 1.. 840.114 [id number] [facility] 09:02:55 09:12:55 Visit Antwan Hobsonyasmniginger [facility] 350.1.13.1 0 ity of [place] 4.2.7.2.686 Kilo as Professio [phone] [address] One 2019-11-04 2019-11-04 Outpatient R JOCE [facility] [id number] Univers 09:00:00 09:00:00 WONDIFUL ity o f [facility] 2019-10-30 2019-10-30 Refill [facility] 1.2.840.114 [id number] Univers 00:00:00 00:00:00 Wondiful A Health 350.1.13.10 ity of [place] 4.2.7.2.686 Kilo as Professio [phone] [address] Office [facility] One 2019-10-25 2019-10-25 Refshruthi [facility] 1.2.840.114 [id number] Univers 00:00:00 00:00:00 Wondiful A Health 350.1.13.10 ity of [place] 4.2.7.2.686 Kilo as Professio [phone] [address] Office [facility] One 2019-10-25 2019-10-25 Refill [facility] 1.2.840.114 [id number] Univers 00:00:00 00:00:00 Wondiful A Health 350.1.13.10 ity of [place] 4.2.7.2.686 Kilo as Professio [phone] La dical nal 044 [facility] 2019-10-07 2019-10-07 Office Link, [facility] 1.2.840.[id number] [place] [address] 08:45:50 10:08:26 Visit eKerthi iDas AMBULATOR 350.1.13.21 College Y 0.2.7.2.686 of [phone] [facility] 300 e 2019-10-07 2019-10-07 Office Link, [facility] 1.2.840.114 [id number] 08:45:50 10:08:26 Visit Keerthi Dias AMBULATOR 350.1.13.21 Y 0.2.7.2.[id number] [facility] 2019-10-07 2019-10-07 Orders Doctor LILLIANA 1.2.840.114 [id number] Univers 00:00:00 00:00:00 Only Unassigned, MACKENZIE 350.1.13.10 ity of [place] [facility] 4.2.7.2.686 Kilo as [phone] [facility] 009 [place] 2019-09-30 2019-09-30 Office [facility], [facility] 1.2.840.114 [id number] Univers 09:15:37 09:55:50 Visit Daniel Harris 350.1.13.10 ity of [place].2.7.2.[place] [phone] La dical nal 059 [facility] 2019-09-30 2019-09-30 Outpatient R BETO, [facility] [id number] Univers 09:40:00 09:40:00 QIANGJUN ity o f [facility] 2019-09-02 2019-09-02 Outpatient R JOCE, [facility] [id number] Univers 08:45:00 08:45:00 WONDIFUL ity o f [facility] 2019-08-30 2019-08-30 Telephone LILLIANA Donald 1.2.615.715 [id number] Univers 00:00:00 00:00:00 Chary LOBOY 350.1.13.10 i ty of HOSPITAL 4.2.7.2.686 Kilo as [phone] [address] 2019-08-29 2019-08-29 Laboratory Lab, [facility] Fam Pob I [facility] [id number]. [id number] Univers 11:32:55 11:52:55 Only Amaya [facility] [id number] ity of [place] [id number] Kilo as Professio [phone] [address] Office [facility] 2019-08-29 2019-08-29 Outpatient R LYLA [facility] [id number] Univers 11:40:00 11:40:00 AMAYA ity of [facility] 2019-08-29 2019-08-29 Urgent Lab, [facility] [id number] 11:00:00 11:20:00 Care Fam Pob I Health [id number] [place] [id number] Professio [phone] [place] [address] Office [facility] 2019-08-29 2019-08-29 Urgent Lab, [facility] Fam Pob I [facility] [id number] .[id number] Univers 11:00:00 11:20:00 Care Amaya [facility] [id number] ity of [place] [id number] Kilo as Professio [phone] [address] Office [facility] 2019-08-29 2019-08-29 Outpatient R [facility] [id number] Univers 11:00:00 11:00:00 ity of [facility] 2019-08-29 2019-08-29 Letter Doctor LILLIANA [id number] [id number] Univers 00:00:00 00:00:00 (Out) Unassigned, MACKENZIE [id number] ity of [place] [facility] [id number] Kilo as [phone] [address] 2019-08-20 2019-08-20 [facility] [id number] Univers 00:00:00 00:00:00 Wondiful A Health [id number] ity of [place] [id number] Kilo as Professio [phone] [address] 2019-07-30 2019-07-30 Office Thacker, [facility] Encounter / Legacy 00:00:00 00:00:00 Visit Renata [id number] Com natalee [id number] [facility] 2019-07-11 2019-07-11 [facility] [id number] Univers 09:15:00 09:15:00 WONDIFUL ity o f [facility] 2019-07-03 2019-07-03 Telephone [facility] [id number] [id number] Univers 00:00:00 00:00:00 Wondiful A [place] 350.1.13.10 [place] [phone] [address] 2019-07-01 2019-07-01 Office Wilfredo, [facility] Encounter/ Legacy 00:00:00 00:00:00 Visit Mirella [id number] Com nataleerobinson De La Cruz [id number] [facility] 2019-07-01 2019-07-01 Telephone [facility] [id number] Univers 00:00:00 00:00:00 Wondiful A Health 350.1.13.10 ity of [place] 4.2.7.2.686 [place] Professio [phone] [address] 2019-07-01 2019-07-01 Office Wilfredo, [facility] Encounter/ Legacy 00:00:00 00:00:00 Visit Mirella [id number] Com natalee De La Cruz [id number] [facility] 2019-07-01 2019-07-[address] [facility] Encounter/ Legacy 00:00:00 00:00:00 Visit Shy Miller [id number] Communi [id number] [facility] 2019-06-25 2019-06-25 Office Wilfredo, [facility] Encounter/ Legacy 00:00:00 00:00:00 Visit Mirella [id number] Katiuska De La Cruz [id number] [facility] 2019-06-25 2019-06-25 Office Wilfredo, [facility] Encounter/ Legacy 00:00:00 00:00:00 Visit Mirella [id number] Katiuska De La Cruz [id number] [facility] 2019-06-25 2019-06-25 Office Wilfredo, [facility] Encounter/ Legacy 00:00:00 00:00:00 Visit Mirella [id number] Com natalee De La Cruz [id number] [facility] 2019-06-25 2019-06-25 Office Wilfredo, Mirella De La Cruz [facility] Encounter/ Legacy 00:00:00 00:00:00 Visit KedarFlorinager [id number] [address] [place] [address] [id number] [facility] 2019-05-14 2019-05-14 [facility] 1.2.840.114 [id number] Univers 00:00:00 00:00:00 Wondiful A Health 350.1.13.10 ity of [place] 4.2.7.2.686 [place] Profess[place] [phone] [address] 2019-04-05 2019-04-05 Outpatient R JOCE [facility] [id number] Univers 13:15:00 14:32:32 WONDIFUL ity o f [facility] 2019-04-05 2019-04-05 [facility] 1.2.840.114 [id number] Univers 13:11:19 14:32:32 Visit Wondiful A Health 350.1.13.10 ity of [place] 4.2.7.2.686 [place] Professio [phone] [facility] 044 [facility] 2019-04-04 2019-04-04 Tele[address] [facility] [id number] Univers 00:00:00 00:00:00 Daniel [place] 350.1.13.10 [place] [phone] La dical nal 059 [facility] 2019-04-01 2019-04-01 Digital Media Producer 2, Adc Lab [facility] 1.2.840.114 [id number] Univers 11:11:10 11:26:10 Visit Daniel Pérez 350.1.13.10 [place] [phone] La dical nal 353 [facility] 2019-04-01 2019-04-01 Outpatient R BETO [facility] [id number] Univers 11:15:00 11:15:00 DANIEL mitchell [facility] 2019-04-01 2019-04-01 [facility] 1.2.840.114 [id number] Univers 09:49:17 11:01:30 Visit Daniel Harris 350.1.13.10 it[place] of [place] [phone] La dical nal 059 [facility] 2019-04-01 2019-04-01 Orders Doctor LILLIANA 1.2.840.114 [id number] Univers 00:00:00 00:00:00 Only Unassigned, MACKENZIE 350.1.13.10 ity of [place] [facility] 4.2.7.2.686 [place] as [phone] [address] 2018-08-03 2018-08-03 Outpatient R JOCE [facility] [id number] Univers 12:45:00 12:45:00 WONDIGINGER mitchell [facility] Results Test Description Test Time Test Comments [...] g/dL 31.6-35.1 L RDW-SD (test code = 78110-4) 45.1 fL 39.0-49.9 RDW-CV (test code = 788-0) 15.3 % 12.0-15.5 PLT (test code = 777-3) See_Comment [Au tomated message] The system which ge nerated this result transmit kendrick reference range: 166 - 35 8 10*3/?L. The reference range was not used to interpret th is result as normal/abnormal . MPV (test code = 20191-1) 11.4 fL 9.5-12.9 NRBC/100 WBC (test code = See_Comment [ Automated message] The [id number]) system which ge nerated this result transmit kendrick reference range: 0.0 - 10 .0 /100 WBCs. The reference r nanci was not used to interpr et this result as normal/abnor mal. NRBC x10^3 (test code = See_Comment [Au tomated message] The 0911510349) system which [employer] nerated this result transmit kendrick reference range: 10*3/?L. The reference range was not u sed to interpret this result as normal/abnormal . GRAN MAT (NEUT) % (test code 57.0 % = 770-8) IMM GRAN % (test code = 0.30 % 4767035927) LYMPH % (test code = 736-9) 32.1 % MONO % (test code = 5905-5) 7.8 % EOS % (test code = 713-8) 2.5 % BASO % (test code = 706-2) 0.3 % GRAN MAT x10^3(ANC) (test 4.26 10*3/uL 1.88-7.09 code = 5946107911) IMM GRAN x10^3 (test code = 0.00-0.06 0419857856) LYMPH x10^3 (test code = 2.40 10*3/uL 1.32-3.29 731-0) MONO x10^3 (test code = 0.58 10*3/uL 0.33-0.92 742-7) EOS x10^3 (test code = 0.19 10*3/uL 0.03-0.39 711-2) BASO x10^3 (test code = 0.01-0.07 704-7) Lab Interpretation (test Abnormal code = 75357-2) [facility] WITH [id number] 00:09:18 Test Item Value Reference Range Interpretation Comments WBC (test code = 7.47 See_Comment [Automated 8890-2) message] The sy stem which generated this result transmitted reference range : 4.30 - 11.10 10*3/?L. The reference range was not used to interpret this result as normal/abnormal . RBC (test code = 4.42 See_Comment [Automated 409-8) message] The sy stem which generated this result transmitted reference range : 3.93 - 5.25 10*6/?L. The reference range was not used to interpret this result as normal/abnormal . HGB (test code = 11.2 g/dL 11.6-15.0 L 718-7) HCT (test code = 36.2 % 35.7-45.2 4544-3) MCV (test code = 81.9 fL 80.6-95.5 787-2) MCH (test code = 25.3 pg 25.9-32.8 L 785-6) MCHC (test code = 30.9 g/dL 31.6-35.1 L 786-4) RDW-SD (test code = 45.1 fL 39.0-49.9 48020-6) RDW-CV (test code = 15.3 % 12.0-15.5 788-0) PLT (test code = 332 See_Comment [Automated 087-3) message] The sy stem which generated this result transmitted reference range : 166 - 358 10*3/ ?L. The reference r nanci was not used to interpret this result as normal/abnormal . MPV (test code = 11.4 fL 9.5-12.9 14031-8) NRBC/100 WBC (test 0.0 See_Comment [Automat ed code = 4515994960) message] The system which generated this result transmitted reference range : 0.0 - 10.0 /100 WBCs. The refer ence range was not u sed to interpret th is result as normal/abnormal . NRBC x10^3 (test code See_Comment [Auto mated = 4630499522) message] The s ystem which generated this result transmitted reference range : 10*3/?L. The reference range was not used to interpret this result as normal/abnormal . GRAN MAT (NEUT) % 57.0 % (test code = 770-8) IMM GRAN % (test code 0.30 % = 3314495478) LYMPH % (test code = 32.1 % 736-9) MONO % (test code = 7.8 % 5905-5) EOS % (test code = 2.5 % 713-8) BASO % (test code = 0.3 % 706-2) GRAN MAT x10^3(ANC) 4.26 10*3/uL 1.88-7.09 (test code = 0785751567) IMM GRAN x10^3 (test 0.00-0.06 code = 2595742189) LYMPH x10^3 (test code 2.40 10*3/uL 1.32-3.29 = 731-0) MONO x10^3 (test code 0.58 10*3/uL 0.33-0.92 = 742-7) EOS x10^3 (test code = 0.19 10*3/uL 0.03-0.39 711-2) BASO x10^3 (test code 0.01-0.07 = 704-7) Lab Interpretation Abnormal (test code = 23524-6) [facility] WITH [id number] 00:09:18 Test Item Value Reference Range Interpretation Comments WBC (test code = 7.47 See_Comment [Automated 7890-2) message] The sy stem which generated this result transmitted reference range : 4.30 - 11.10 10*3/?L. The reference range was not used to interpret this result as normal/abnormal . RBC (test code = 4.42 See_Comment [Automated 989-8) message] The sy stem which generated this result transmitted reference range : 3.93 - 5.25 10*6/?L. The reference range was not used to interpret this result as normal/abnormal . HGB (test code = 11.2 g/dL 11.6-15.0 L 718-7) HCT (test code = 36.2 % 35.7-45.2 4544-3) MCV (test code = 81.9 fL 80.6-95.5 787-2) MCH (test code = 25.3 pg 25.9-32.8 L 785-6) MCHC (test code = 30.9 g/dL 31.6-35.1 L 786-4) RDW-SD (test code = 45.1 fL 39.0-49.9 66433-4) RDW-CV (test code = 15.3 % 12.0-15.5 788-0) PLT (test code = 332 See_Comment [Automated 777-3) message] The sy stem which generated this result transmitted reference range : 166 - 358 10*3/ ?L. The reference r nanci was not used to interpret this result as normal/abnormal . MPV (test code = 11.4 fL 9.5-12.9 90209-7) NRBC/100 WBC (test 0.0 See_Comment [Automat ed code = 5046404761) message] The system which generated this result transmitted reference range : 0.0 - 10.0 /100 WBCs. The refer ence range was not u sed to interpret th is result as normal/abnormal . NRBC x10^3 (test code See_Comment [Auto mated = 7030862578) message] The s ystem which generated this result transmitted reference range : 10*3/?L. The reference range was not used to interpret this result as normal/abnormal . GRAN MAT (NEUT) % 57.0 % (test code = 770-8) IMM GRAN % (test code 0.30 % = 1327031559) LYMPH % (test code = 32.1 % 736-9) MONO % (test code = 7.8 % 5905-5) EOS % (test code = 2.5 % 713-8) BASO % (test code = 0.3 % 706-2) GRAN MAT x10^3(ANC) 4.26 10*3/uL 1.88-7.09 (test code = 9411720670) IMM GRAN x10^3 (test 0.00-0.06 code = 1760707270) LYMPH x10^3 (test code 2.40 10*3/uL 1.32-3.29 = 731-0) MONO x10^3 (test code 0.58 10*3/uL 0.33-0.92 = 742-7) EOS x10^3 (test code = 0.19 10*3/uL 0.03-0.39 711-2) BASO x10^3 (test code 0.01-0.07 = 704-7) Lab Interpretation Abnormal (test code = 90861-8) [facility] [id number] 09:29:42 Test Item Value Reference Range Interpretation Comments THYROID STIMULATING See_Comment Normal TSH level HORMONE (test code = [place] [address]-8) clinically stab le patient without hypothalamic-pi tuitary-th yroid axis diso rders and no apparent thy roid dysfunction. No reflex testing require d. Unless Otherwise Indic ated, All Testing Perform ed At: [facility] [place], [address] [place] [address], [place] [address] Laboratory Dire ctor: Breonna Ball. CLIA Number [id number] [place]. [id number] [Autom ated message] The sy stem which generated this result transmitted ref erence range: 0.400 - 4.100 UIU/ML. The ref erence range was not u sed to interpret this result as normal/abnormal . [facility] [id number] 08:36:24 Test Item Value Reference Range Interpretation [...] All Testing Performed At: C linical Pathology [facility], [address] [place] [id number] [place] [address] Director: Tani Vazquez M.D. CLIA Number [id number] [place] o. [id number] Lab Interpretation Abnormal (test code = 98192-6) [facility]OL[facility] [id number] 08:11:36 Test Item Value Reference Range Interpretation Comments GLUCOSE (test code = See_Comment H [Autom ated message] 6985-7) The system [employer] generated this result transmitted ref erence range: 70 - 99 MG/DL. The reference r nanci was not used to interpret this result as normal/abnor mal. BLOOD UREA NITROGEN See_Comment [Automa kendrick message] (test code = 3091-6) The s tem which generated this result transmitted ref erence range: 8 - 23 M G/DL. The reference r nanci was not used to interpret this result as normal/abnor mal. CREATININE (test code = See_Comment L [Au tomated message] 9210-0) The system [employer] generated this result transmitted ref erence range: 0.60 - 1 .30 MG/DL. The refe rence range was not u sed to interpret this result as normal/abnor mal. EGFR (test code = See_Comment [Automate d message] 28321-7) The system [employer] generated this result transmitted ref erence range: >60 ML/MIN/1.73. Th e reference range was not used to int erpret this result as normal/abnormal . BUN/CREAT RATIO (test See_Comment [Auto mated message] code = 3097-3) The system [facility] generated this result transmitted ref erence range: 6 - 28 R ATIO. The reference r nanci was not used to interpret this result as normal/abnor mal. SODIUM (test code = See_Comment [Automa kendrick message] 2951-2) The system [employer] generated this result transmitted ref erence range: 133 - 14 6 MEQ/L. The refe rence range was not u sed to interpret this result as normal/abnor mal. POTASSIUM (test code = See_Comment [Aut omated message] 2823-3) The system [employer] generated this result transmitted ref erence range: 3.5 - 5. 4 MEQ/L. The refe rence range was not u sed to interpret this result as normal/abnor mal. CHLORIDE (test code = See_Comment [Auto mated message] 1115-0) The system [employer] generated this result transmitted ref erence range: 95 - 107 MEQ/L. The reference r nanci was not used to interpret this result as normal/abnor mal. CO2 (test code = See_Comment [Automated message] 2725-8) The system [employer] generated this result transmitted ref erence range: 19 - 31 MEQ/L. The reference r nanci was not used to interpret this result as normal/abnor mal. CALCIUM (test code = See_Comment [Autom ated message] 04884-7) The system [employer] generated this result transmitted ref erence range: 8.5 - 10 .5 MG/DL. The refe rence range was not u sed to interpret this result as normal/abnor mal. PROTEIN TOTAL (test See_Comment [Automa kendrcik message] code = 2885-2) The system [employer] [facility] generated this result transmitted ref erence range: 6.1 - 8. 3 G/DL. The reference r nanci was not used to interpret this result as normal/abnor mal. ALBUMIN (test code = See_Comment [Autom ated message] 20399-2) The system [employer] generated this result transmitted ref erence range: 3.5 - 5. 2 G/DL. The reference r nanci was not used to interpret this result as normal/abnor mal. GLOBULINS, SERUM, TOTAL See_Comment [Au tomated message] (test code = 96589-8) The sy stem which generated this result transmitted ref erence range: 1.9 - 3. 7 G/DL. The reference r nanci was not used to interpret this result as normal/abnor mal. A/G RATIO (test code = See_Comment [Aut omated message] 1169-0) The system [employer] generated this result transmitted ref erence range: 1.0 - 2. 6 RATIO. The refe rence range was not u sed to interpret this result as normal/abnor mal. BILIRUBIN TOTAL (test See_Comment [Auto mated message] code = 1974-2) The system ich generated this result transmitted ref erence range: <=1.2 MG /DL. The reference r nanci was not used to interpret this result as normal/abnor mal. ALKALINE PHOSPHATASE 119 U/L 40-142 (test code = 6768-6) AST (SGOT) (test code = 21 U/L 9-40 1920-8) ALT (SGPT) (test code = 17 U/L 5-40 Unl ess Otherwise 1744-2) Indicated, All Testing Performed At: [facility], [address] [place] [address] Laborator y Director: Tani Vazquez M.D. CLIA Number [id number] [place] Accreditation [place] o. [id number] Lab Interpretation Abnormal (test code = 18112-6) [facility] W/AUTO DIFF WITH [id number] 07:12:50 Test Item Value Reference Range Interpretation Comments WHITE BLOOD CELL COUNT See_Comment [Aut omated message] (test code = 65017-0) The sy stem which generated this result transmitted ref erence range: 3.5 - 11 .0 K/UL. The refer ence range was not u sed to interpret this result as normal/abnor mal. RED BLOOD CELL COUNT See_Comment [Autom ated message] (test code = 64819-2) The sy stem which generated this result transmitted ref erence range: 3.80 - 5 .40 M/UL. The refer ence range was not u sed to interpret this result as normal/abnor mal. HEMOGLOBIN (test code = See_Comment [Au tomated message] 718-7) The system [facility] generated this result transmitted ref erence range: 11.5 - 1 5.5 G/DL. The refer ence range was not u sed to interpret this result as normal/abnor mal. HEMATOCRIT (test code = 38.5 % 34.0-45.0 51054-0) MEAN CORPUSCULAR VOLUME 84.4 fL 80.0-99.0 (test code = 12328-7) MEAN CORPUSCULAR 28.1 PG 25.0-33.0 HEMOGLOBIN (test code = 12544-2) MEAN CORPUSCULAR See_Comment [Automated message] HEMOGLOBIN CONC (test The sy stem which code = 67814-5) generated th is result transmitted ref erence range: 31.0 - 3 6.0 G/DL. The refer ence range was not u sed to interpret this result as normal/abnor mal. RED CELL DISTRIBUTION 13.0 % 11.5-15.0 WIDTH (test code = 04336-0) NEUTROPHILS % (test code 60.3 % = 18925-1) LYMPHOCYTES % (test code 29.6 % = 90367-5) MONOCYTES % (test code = 6.9 % 44339-6) EOSINOPHILS % (test code 2.7 % = 83414-8) BASOPHILS % (test code = 0.4 % 51268-4) IMMATURE GRANULOCYTES 0.1 % (test code = 37648-2) NUCLEATED RBC'S See_Comment Unless Othe rwise MYELOPEROX STAIN (test Indic ated, All Testing code = 26430-4) Performed At : [facility], [address] [place] [address] Laborator y Director: Konstantin BallIA Number [id number] Cap Accreditation [place] o. [id number] [Autom ated message] The sy stem which generated this result transmit kendrick reference range : 0.00 - 0.11 K/UL. Th e reference range was not used to int erpret this result as normal/abnormal . PLATELET COUNT (test See_Comment [Autom ated message] code = 67887-7) The system w [facility] generated this result transmitted ref erence range: 130 - 40 0 K/UL. The reference r nanci was not used to interpret this result as normal/abnor mal. NEUTROPHILS ABSOLUTE See_Comment [Autom ated message] COUNT (test code = The syste m which 95715-7) generated this result transmitted ref erence range: 1.50 - 7 .50 K/UL. The refer ence range was not u sed to interpret this result as normal/abnor mal. LYMPHOCYTES ABSOLUTE See_Comment [Autom ated message] COUNT (test code = The syste m which 90726-6) generated this result transmitted ref erence range: 1.00 - 4 .00 K/UL. The refer ence range was not u sed to interpret this result as normal/abnor mal. MONOCYTES ABSOLUTE COUNT See_Comment [A utomated message] (test code = 13570-9) The sy stem which generated this result transmitted ref erence range: 0.20 - 1 .00 K/UL. The refer ence range was not u sed to interpret this result as normal/abnor mal. BASOPHILS ABSOLUTE COUNT See_Comment [A utomated message] (test code = 98215-4) The sy stem which generated this result [...] to interpret this result as normal/abnor mal. [facility] [id number] 00:00:00 Test Item Value Reference Range Interpretation Comments COLOR UA (test code = 5778-6) Yellow YELLOW/STRAW CLARITY UA (test code = 42295-3) Clear CLEAR GLUCOSE UA (test code = 5792-7) Negative NEGATIVE BILIRUBIN UA (test code = 5770-3) Negative NEGATIVE KETONES UA (test code = 50319-0) Negative NEGATIVE SPECIFIC GRAVITY UA (test code [...] NEGATIVE REDUCING SUBSTANCES URINE (test code = 85229-8) [facility] PAN[facility] (26626)2021-09-03 20:37:56 Test Item Value Reference Range Interpretation Comments NA (test code = 138 mmol/L 135-145 8302924906) K (test code = 4.4 mmol/L 3.5-5.0 9046455366) CL (test code = 99 mmol/L 98-108 3009344290) CO2 TOTAL (test code = 28 mmol/L 23-31 5611397903) AGAP (test code = 11 2-16 2561778914) BUN (test code = 18 mg/dL 7-23 7835307275) GLUCOSE (test code = 122 mg/dL 70-110 H 9519562572) CREATININE (test code = 0.59 mg/dL 0.50-1.04 5685886865) TOTAL BILI (test code = 0.5 mg/dL 0.1-1.6 6116672983) CALCIUM (test code = 9.0 mg/dL 8.6-10.6 3993114699) T PROTEIN (test code = 6.6 g/dL 6.3-8.2 5598569411) ALBUMIN (test code = 4.1 g/dL 3.5-5.0 2154740393) ALK PHOS (test code = 91 U/L 34-122 0244854005) ALTv (test code = 21 U/L 5-35 1742-6) AST(SGOT) (test code = 27 U/L 13-40 4602201008) eGFR (test code = 96.9 mL/min/1.73m2 1046711641) ALEXIS (test code = ALEXIS) Association of Glomerular Filtration Rate (GFR) and Staging of Kidney Disease* + --+ --+ ------+| GFR (mL/min/1.73 m2) ?| With Kidney Damage ?| ?Without Kidney Damage+ --------+ --------+ +| ?>90 ?| ?Stage one ?| ? Normal ?+ ---+ ---+ -------+| ?60-89 ?| ?Stage two ?| ? Decreased GFR ? + --+ --+ ------+| ?30-59 ?| ?Stage three ?| ? Stage three ? + --+ --+ ------+| ?15-29 ?| ?Stage four ? | ? Stage four ?+ ---+ ---+ -------+| ?<15 (or dialysis) ? ?| ?Stage five ? | ? Stage five ?+ ---+ ---+ -------+ *Each stage assumes the associated GFR level has been in effect for at least three months. ?Stages 1 to 5, with or without kidney disease, indicate chronic kidney disease. Notes: Determination of stages one and two (with eGFR >59mL/min/1.73 m2) requires estimation of kidney damage for at least three months as defined by structural or functional abnormalities of the kidney, manifested by either:Pathological abnormalities or Markers of kidney damage (including abnormalities in the composition of the blood or urine or abnormalities in imaging tests). Lab Interpretation Abnormal (test code = 03426-1) [facility] 20:37:36 Test Item Value Reference Range Interpretation Comments LIPASE (test code = 1658650311) 184 U/L 0-220 Lab Interpretation (test code = Normal 97219-0) [facility] WITH [id number] 19:27:42 Test Item Value Reference Range Interpretation Comments WBC (test code = 8.34 See_Comment [Automated 6690-2) message] The sy stem which generated this result transmitted reference range : 4.30 - 11.10 10*3/?L. The reference range was not used to interpret this result as normal/abnormal . RBC (test code = 4.38 See_Comment [Automated 619-8) message] The sy stem which generated this result transmitted reference range : 3.93 - 5.25 10*6/?L. The reference range was not used to interpret this result as normal/abnormal . HGB (test code = 12.0 g/dL 11.6-15.0 718-7) HCT (test code = 38.3 % 35.7-45.2 4544-3) MCV (test code = 87.4 fL 80.6-95.5 787-2) MCH (test code = 27.4 pg 25.9-32.8 785-6) MCHC (test code = 31.3 g/dL 31.6-35.1 L 786-4) RDW-SD (test code = 48.8 fL 39.0-49.9 18172-5) RDW-CV (test code = 15.2 % 12.0-15.5 788-0) PLT (test code = 291 See_Comment [Automated 777-3) message] The sy stem which generated this result transmitted reference range : 166 - 358 10*3/ ?L. The reference r nanci was not used to interpret this result as normal/abnormal . MPV (test code = 11.2 fL 9.5-12.9 11602-5) NRBC/100 WBC (test 0.0 See_Comment [Automat ed code = 5530143589) message] The system which generated this result transmitted reference range : 0.0 - 10.0 /100 WBCs. The refer ence range was not u sed to interpret th is result as normal/abnormal . NRBC x10^3 (test code See_Comment [Auto mated = 7570566451) message] The s ystem which generated this result transmitted reference range : 10*3/?L. The reference range was not used to interpret this result as normal/abnormal . GRAN MAT (NEUT) % 60.5 % (test code = 770-8) IMM GRAN % (test code 0.40 % = 1377525396) LYMPH % (test code = 27.5 % 736-9) MONO % (test code = 8.3 % 5905-5) EOS % (test code = 2.9 % 713-8) BASO % (test code = 0.4 % 706-2) GRAN MAT x10^3(ANC) 5.06 10*3/uL 1.88-7.09 (test code = 9531828764) IMM GRAN x10^3 (test 0.03 10*3/uL 0.00-0.06 code = 5250656369) LYMPH x10^3 (test code 2.29 10*3/uL 1.32-3.29 = 731-0) MONO x10^3 (test code 0.69 10*3/uL 0.33-0.92 = 742-7) EOS x10^3 (test code = 0.24 10*3/uL 0.03-0.39 711-2) BASO x10^3 (test code 0.03 10*3/uL 0.01-0.07 = 704-7) Lab Interpretation Abnormal (test code = 84438-0) [facility] URINALYSIS [id number] 00:00:00 Test Item Value Reference Range Interpretation Comments COLOR UA (test code = 5778-6) Yellow YELLOW/STRAW CLARITY UA (test code = Clear CLEAR 41118-3) GLUCOSE UA (test code = Negative NEGATIVE 5792-7) BILIRUBIN UA (test code = Negative NEGATIVE 5770-3) KETONES UA (test code = Negative NEGATIVE 30057-1) SPECIFIC GRAVITY UA (test 1.005-1.035 A code [...] REDUCING SUBSTANCES URINE NEGATIVE (test code = 24002-5) Lab Interpretation (test code Abnormal = 41676-3) [facility] URINALYSIS [id number] 00:00:00 Test Item Value Reference Range Interpretation Comments COLOR UA (test code = 5778-6) Light Yellow YELLOW/STRAW CLARITY UA (test code = Cloudy CLEAR 49732-6) GLUCOSE UA (test code = Negative NEGATIVE 5792-7) BILIRUBIN UA (test code = Negative NEGATIVE 5770-3) KETONES UA (test code = Negative NEGATIVE 34653-6) SPECIFIC GRAVITY UA (test 1.005-1.035 code = [...] 5802-4) REDUCING SUBSTANCES URINE (test code = 36019-7) [id number] 11:28:02 Test Item Value Reference Range Interpretation Comments MAGNESIUM (test code = See_Comment Unle ss Otherwise 81377-2) Indicated, All Testing Performed At: [facility], [address] [place] [address], [place] [address] Laborator y Director: Konstantin BallIA Number [id number] Cap Accreditation N o. [id number] [Autom ated message] The sy stem which generated this result transmitted ref erence range: 1.6 - 2. 6 MG/DL. The reference r nanci was not used to int erpret this result as normal/abnormal . [facility] METABOLIC [id number] 08:53:12 Test Item Value Reference Range Interpretation Comments GLUCOSE (test code = See_Comment H [Autom ated message] 2345-7) The system [employer] generated this result transmitted ref erence range: [...] L [Au tomated message] 2160-0) The system [employer] generated this result transmitted ref erence range: 0.60 - 1 .30 MG/DL. The refe rence range was not u sed to interpret this result as normal/abnor mal. EGFR AA (test code = See_Comment [Autom ated message] 89347-4) The system [employer] generated this result transmitted ref erence range: >60 ML/MIN/1.73. Th e reference range was not used to int erpret this result as normal/abnormal . EGFR (test code = See_Comment [Automate d message] 89622-6) The system [employer] generated this result transmitted ref erence range: >60 ML/MIN/1.73. Th e reference range was not used to int erpret this result as normal/abnormal . SODIUM (test code = See_Comment [Automa kendrick message] 2951-2) The system [employer] generated this result transmitted ref erence range: 133 - 14 6 MEQ/L. The refe rence range was not u sed to interpret this result as normal/abnor mal. POTASSIUM (test code = See_Comment [Aut omated message] 2823-3) The system [employer] generated this result transmitted ref erence range: 3.5 - 5. 4 MEQ/L. The refe rence range was not u sed to interpret this result as normal/abnor mal. CHLORIDE (test code = See_Comment [Auto mated message] 2074-0) The system [employer] generated this result transmitted ref erence range: 95 - 107 MEQ/L. The refe rence range was not u sed to interpret this result as normal/abnor mal. CO2 (test code = 1962-8) See_Comment [A utomated message] The system [employer] generated this result transmitted ref erence range: 19 - 31 MEQ/L. The reference r nanci was not used to interpret this result as normal/abnor mal. CALCIUM (test code = See_Comment Unless Otherwise 63765-9) Indicated, All Testing Perform ed At: [facility], [address] [place] [address] Laborato ry Director: Tani Vazquez M.D. CLIA Number [id number] Cap Accreditation N o. 23510-24 [Autom ated message] The sy stem which generated this result transmit kendrick reference range : 8.5 - 10.5 MG/DL. T he reference range was not used to int erpret this result as normal/abnormal . Lab Interpretation (test Abnormal code = 43634-9) [facility] [id number] 08:53:12 Test Item Value Reference Range Interpretation Comments URIC ACID (test code See_Comment Unless Otherwise = 6980704) Indicated, All Testing Performed At: [facility], [address] [place] [address] Laborator y Director: Tani rogers M.D. CLIA Number [id number] Cap Accreditation N o. 13829-53 [Automated mess age] The system which ge nerated this result transmit kendrick reference range : 2.7 - 6.1 MG/DL. The refe rence range was not used to interpret this result as normal/abnormal . [facility] HospitalFL, FLUORO, NON-SPECIFIC, UP TO 1 [id number] 09:44:00Reason for exam:->cystoFINAL REPORT A fluoroscopic unit was utilized for a procedure performed in the operating room. No interpretation was requested. Please refer to the operative report regarding findings. Please refer to PACS for patient radiation dose information. Signed: JR Johnson Robert MDReport Verified Date/Time: 07/14/2019 09:44:15 Reading Location: [facility] C013V Neuro Reading Room BLOOD [id number] 11:00:00 Test Item Value Reference Range Interpretation Comments CULTURE (BEAKER) (test No growth in 5 days code = 1095) BLOOD [id number] 11:00:00 Test Item Value Reference Range Interpretation Comments CULTURE (BEAKER) (test No growth in 5 days code = 1095) URINE [id number] 11:07:00 Test Item Value Reference Range Interpretation Comments CULTURE (BEAKER) (test code = 1095) No growth ANG, NEPHROSTOMY, PERC, EXTERNAL [id number] 11:00:00Reason for exam:- >request left PCN for left obstructing stone, feversFINAL REPORT Procedure: Percutaneous nephrostomy catheter placement. History: Left ureteric calculus with obstruction, infection. Meat Cutting Teacher: Bradford Matthew M.D. Resident Care Aid:Nargis mckeon M.D. Modality: Ultrasound and fluoroscopy. DOSE [...] local infiltration Medicines: Not applicable Contrast medium: Oendtl185, 15 cc. Estimated blood loss: < 5 [...] anesthesia and dermatotomy, under real-time ultrasonographic guidance, [id number]-[id number] Chiba needle was advanced into the calyx. After confirming the recovery of urine, a guidewire was advanced into the collecting system under fluoroscopic guidance. Contrast injection confirmed satisfactory position of the access system. Over the wire, following sequential dilatation of the tract, an 8.5 Tajik nephrostomy catheter was placed, pigtail locked in [...] bladder. Impression:Successful ultrasound and fluoroscopic guided 8.5 Tajik nephrostomy catheter placement left kidney via a posterior inferior calyx as described above. Further management dictated by the clinical scenario. The nephrostomy catheter(s) should be exchanged at the latest in three months. Thank you for the opportunity to assist in the care of your patient. Signed: Bradford Matthew MDReport Verified Date/Time: 07/10/2019 11:00:12 Reading Location: [place] [address] Angio Body Reading Room BASIC METABOLIC [id number] 07:33:00 Test Item Value Reference Range Interpretation [...] 1092) DATA TO CALCULA TE ESTIMATED GFR. Transfer Agent ID - MONIE [id number] 07:25:00 Test Item Value Reference Range Interpretation Comments MAGNESIUM (BEAKER) (test code = 2.2 mg/dL 1.6-2.6 627) Transfer Agent ID - MONIE CHEPATIC FUNCTION [id number] 07:25:00 Test Item Value Reference Range Interpretation [...] (test code = 43 U/L 6-55 347) Transfer Agent ID - MONIE CCBC W/PLT COUNT & AUTO [id number] 06:54:00 Test Item Value Reference Range Interpretation [...] (BEAKER) (test code = 2801) BASIC METABOLIC [id number] 05:38:00 Test Item Value Reference Range Interpretation [...] 1092) DATA TO CALCULA TE ESTIMATED GFR. Transfer Agent ID - [id number] 05:24:00 Test Item Value Reference Range Interpretation Comments MAGNESIUM (BEAKER) (test code = 1.8 mg/dL 1.6-2.6 627) Transfer Agent ID - LAHEPATIC FUNCTION [id number] 05:24:00 Test Item Value Reference Range Interpretation [...] (test code = 36 U/L 6-55 347) Transfer Agent ID - LACBC W/PLT COUNT & AUTO [id number] 04:34:00 Test Item Value Reference Range Interpretation [...] (BEAKER) (test code = 2801) LACTIC ACID, [id number] 20:25:00 Test Item Value Reference Range Interpretation Comments LACTATE BLOOD VENOUS (2) (BEAKER) 0.69 mmol/L 0.50-2.20 (test code = 2872) Transfer Agent ID - NTPRAD, CHEST, 1 VIEW, NON [id number] 16:24:00Reason for exam:->feverShould this be performed at the bedside?->YesFINAL REPORT CLINICAL HISTORY: fever TECHNIQUE: 1 view of the chest. COMPARISON: None IMPRESSION: There is possible retrocardiac left lower lobe consolidation, for which clinical correlation for pneumonia is requested. There is blunting of the left costophrenic angle. The heart isnot enlarged. Signed: Rich Rebolledo MDReport Verified Date/Time: 07/08/2019 16:24:52 Reading Location: [facility] C013V Neuro Reading Room HEMOGLOBIN [id number] 13:56:00 Test Item Value Reference Range Interpretation Comments HEMOGLOBIN A1C (BEAKER) (test code = 6.1 % 4.3-6.1 368) URINALYSIS W/ REFLEX URINE [id number] 13:15:00 Test Item Value Reference Range Interpretation [...] = 516) SOURCE(BEAKER) (test code = 2795) Transfer Agent ID - [auto]Transfer Agent ID - techRESPIRATORY PANEL [id number] 12:14:00 Test Item Value Reference Range Interpretation [...] decisions. This sample was tested at the [facility] using the [employer] FilmArray Respiratory Panel. It is FDA cleared and has been verified and approved by the [facility] for clinical use on nasopharyngeal swab specimens.The performance of the FilmArrayRP has not been established in individuals who received influenza vaccine. Recent administration of a nasal influenza vaccine may cause false positive results for Influenza A and/orInfluenza B.SARS-COV2/RT-PCR ([facility])2019-07-08 11:26:00 Test Item Value Reference Range Interpretation Comments SARS-COV2/RT-PCR (test Not Detected Not Detected, Negative code = 7477643) SARS-COV-2 PERFORMING LAB [facility] (test code = 0442065) Negative results do not preclude SARS-CoV-2 infection [...] of the Act.Fact Sheet for Healthcare Pro viders:https://www.[employer].Predictivez/Documents/Xpert%20Xpress%20SARS%20CoV-2/Fact%20Sh eets/302-8372%48BWNX-FNF-4%20HEALTHCARE%20PROVIDERS%20FACT%20SHEET.pdfFact Sheet for Healthcare Patients:https://www.[employer].Predictivez/Documents/Xpert%20Xpress%20SARS%20CoV-2/Fact%20Sheets/302-3801%20SARS-COV -2%20PATIENT%20FACT%20SHEET.pdfPerforming Laboratory:[facility], [place] [address]LZRSC METABOLIC [id number] 10:06:00 Test Item Value Reference Range Interpretation [...] 1092) DATA TO CALCULA TE ESTIMATED GFR. Transfer Agent ID - [id number] 10:05:00 Test Item Value Reference Range Interpretation Comments MAGNESIUM (BEAKER) (test code = 2.0 mg/dL 1.6-2.6 627) Transfer Agent ID - NTPHEPATIC FUNCTION [id number] 10:05:00 Test Item Value Reference Range Interpretation [...] (test code = 30 U/L 6-55 347) Transfer Agent ID - [id number] 09:53:00 Test Item Value Reference Range Interpretation [...] 2.5-3.5 for patients wiht mechanical heart valves.PROTHROMBIN TIME/[id number] 09:51:00 Test Item Value Reference Range Interpretation [...] for patients wiht mechanical heart valves.LACTIC ACID, [id number] 09:50:00 Test Item Value Reference Range Interpretation Comments LACTATE BLOOD VENOUS (2) (BEAKER) 2.87 mmol/L 0.50-2.20 H (test code = 2872) Transfer Agent ID - NTPCBC W/PLT COUNT & AUTO [id number] 09:41:00 Test Item Value Reference Range Interpretation [...] % 0-1 PERCENT (BEAKER) (test code = 2801)"
[2022-05-08 07:12] LABS: Absolute Lymphocytes (CBC) 4.8 K/uL (0.7-4.9); Hematocrit 37.2 % (36.0-45.0); Lymphocytes % 44.9 % (15.3-44.8); MCV 77.2 fL (80-100); MPV 8.3 fL (7.6-11.3); RBC Red Blood Cell Count 4.82 M/uL (3.86-4.86)
[2022-05-08] MEDS ORDERED: METHYLPREDNISOLONE 125 MG INJ ONE (07:13)
[2022-05-08] MEDS ORDERED: IPRATROPIUM BROM 0.5MG/2.5ML ONE (07:14)
[2022-05-08] MEDS ORDERED: FUROSEMIDE 40 MG/4 ML VIAL ONE (07:14)
[2022-05-08 07:18] LABS: Protime INR 1.01
[2022-05-08 07:22] LABS: Albumin 3.5 g/dL (3.4-5.0); Bilirubin Direct 0.1 mg/dL (0-0.2); Bilirubin Total 0.5 mg/dL (0.2-1.0); Magnesium 2.5 mg/dL (1.6-2.4); Potassium 3.5 mEq/L (3.5-5.1); Protein, Total 7.6 g/dL (6.4-8.2); Troponin High Sensitivity 25.6 pg/mL (<58.9)
--- NOTE | 2022-05-08 07:38 | EDPHYS ---
Physician Documentation [facility] Name: Eriak Jacobson Age: 87 yrs Sex: Female : 1935 Arrival Date: 05/08/2022 Time: 06:31 Bed 13 Private MD: ED Physician Charly Guo HPI: 05/08 06:34 This 87 yrs old Female presents to ER via Unassigned with complaints of sp4 Breathing Difficulty. Historical: - PMHx: 06:53 Asthma; Hypertension; Hyperlipidemia; kd3 - Immunization history:: Adult Immunizations up to date, Client reports receiving the 2nd dose of the Covid vaccine. - Social history:: Smoking status: Patient denies any tobacco usage or history of. ROS: 07:29 Constitutional: Negative for fever, chills, and weight loss, Eyes: Negative for injury, roxanna pain, redness, and discharge, ENT: Negative for injury, pain, and discharge, Neck: Negative for injury, pain, and swelling. Exam: 07:30 Constitutional: This is a well developed, well nourished patient who is awake, alert, roxanna and in no acute distress. Head/Face: Normocephalic, atraumatic. Eyes: Pupils equal round and reactive to light, extra-ocular motions intact. Lids and lashes normal. Conjunctiva and sclera are non-icteric and not injected. Cornea within normal limits. Periorbital areas with no swelling, redness, or edema. ENT: Nares patent. No nasal discharge, no septal abnormalities noted. Tympanic membranes are normal and external auditory canals are clear. Oropharynx with no redness, swelling, or masses, exudates, or evidence of obstruction, uvula midline. Mucous membranes moist. Neck: Trachea midline, no thyromegaly or masses palpated, and no cervical lymphadenopathy. Supple, full range of motion without nuchal rigidity, or vertebral point tenderness. No Meningismus. Chest/axilla: Normal chest wall appearance and motion. Nontender with no deformity. No lesions are appreciated. Cardiovascular: Regular rate and rhythm with a normal S1 and S2. No gallops, murmurs, or rubs. Normal PMI, no JVD. No pulse deficits. Abdomen/GI: Soft, non-tender, with normal bowel sounds. No distension or tympany. No guarding or rebound. No evidence of tenderness throughout. Back: No spinal tenderness. No costovertebral tenderness. Full range of motion. Female : Normal external genitalia. Skin: Warm, dry with normal turgor. Normal color with no rashes, no lesions, and no evidence of cellulitis. MS/ Extremity: Pulses equal, no cyanosis. Neurovascular intact. Full, normal range of motion. Neuro: Awake and alert, GCS 15, oriented to person, place, time, and situation. Cranial nerves II-XII grossly intact. Motor strength 5/5 in all extremities. Sensory grossly intact. Cerebellar exam normal. Normal gait. Psych: Awake, alert, with orientation to person, place and time. Behavior, mood, and affect are within normal limits. 07:30 Respiratory: mild respiratory distress is noted, Respirations: labored breathing, that is mild, Breath sounds: rhonchi, that are mild, Respiratory rate: 18 07:46 ECG was reviewed by the Attending Physician. [facility] Vital Signs: 06:51 BP 146 / 73; Pulse 120; Resp 31; Temp 97.2; Pulse Ox 100% on Non-rebreather mask; kd3 Weight 50 kg; 07:21 BP 145 / 67; Pulse 78; Resp 18; Pulse Ox 100% on Nebulizer Mask; db 08:32 BP 144 / 59; Pulse 77; Resp 20; Pulse Ox 93% on 2 lpm NC; db 09:30 BP 130 / 60; Pulse 70; Resp 16; Pulse Ox 99% on 2 lpm NC; db 10:00 BP 125 / 65; Pulse 65; Resp 16; Pulse Ox 99% ; db 10:30 BP 130 / 60; Pulse 70; Resp 16; Pulse Ox 98% on 2 lpm NC; db MDM: 06:35 Patient medically screened. sp4 07:08 Patient medically screened. roxanna 07:32 Differential diagnosis: Anemia asthma, Bronchitis CHF exacerbation, Chronic Obstructive roxanna Pulmonary Disease pneumonia, pulmonary edema, Pulmonary Embolism reactive airway disease, Sepsis. Antibiotic administration: mereem. Immunization status: Pneumococcal vaccine: within last 5 years. Influenza vaccine: within last 5 years. Data reviewed: vital signs, nurses notes, lab test result(s), EKG, radiologic studies, CT scan, doppler, plain films. Consideration of Admission/Observation Patient was admitted/placed on observation. Escalation of care including admission/observation considered. I considered the following discharge prescriptions or medication management in the emergency department Medications were administered in the Emergency Department. See MAR. Test considered but Not performed: Ultrasound no echo cardio. Care significantly affected by the following chronic conditions: Hypertension, asthma, hyperlipemia. Counseling: I had a detailed discussion with the patient and/or guardian regarding: the historical points, exam findings, and any diagnostic results supporting the discharge/admit diagnosis, lab results, radiology results, the need for further work-up and treatment in the hospital. 05/08 06:35 Order name: BMP; Complete Time: 07:28 05/08 06:35 Order name: Blood Culture Adult (2) 05/08 06:35 Order name: CBC with Diff; Complete Time: 07:28 05/08 06:35 Order name: CPK; Complete Time: 07:28 05/08 06:35 Order name: D-Dimer; Complete Time: 07:28 05/08 06:35 Order name: Hepatic Function; Complete Time: 07:28 05/08 06:35 Order name: Lipase; Complete Time: 07:28 05/08 06:35 Order name: Magnesium; Complete Time: 07:28 05/08 06:35 Order name: NT PRO-BNP; Complete Time: 07:28 05/08 06:35 Order name: PT-INR; Complete Time: 07:28 05/08 06:35 Order name: Ptt, Activated; Complete Time: 07:28 05/08 06:35 Order name: Troponin HS; Complete Time: 07:28 05/08 06:56 Order name: Lactate w/ 2H reflex if indic.; Complete Time: 08:53 kd3 05/08 07:13 Order name: ABG; Complete Time: 08:53 4 05/08 09:19 Order name: Urinalysis W/Microscopic db 05/08 06:35 Order name: XRAY CXR (1 view); Complete Time: 08:53 sp4 05/08 07:30 Order name: US Extremity Venous W Compression Neri roxanna 05/08 07:30 Order name: CT Chest For PE Angio; Complete Time: 08:53 roxanna 05/08 10:31 Order name: US EDMS 05/08 06:35 Order name: EKG; Complete Time: 06:36 sp4 05/08 06:35 Order name: Cardiac monitoring; Complete Time: 06:55 sp4 05/08 06:35 Order name: EKG - Nurse/Tech; Complete Time: 06:55 sp4 05/08 06:35 Order name: IV Saline Lock; Complete Time: 06:56 sp4 05/08 06:35 Order name: Labs collected and sent; Complete Time: 06:56 sp4 05/08 06:35 Order name: O2 Per Protocol; Complete Time: 06:56 sp4 05/08 06:35 Order name: O2 Sat Monitoring; Complete Time: 06:56 sp4 EC:46 Rate is 102 beats/min. Rhythm is regular. QRS Marion is Normal. AR interval is normal. roxanna QRS interval is normal. QT interval is normal. No Q waves. T waves are Normal. No ST changes noted. Clinical impression: Abnormal EKG without significant change and No evidence of ischemia. Interpreted by me. Reviewed by me. Administered Medications: 07:10 Drug: Ipratropium Inhalation Aerosol 0.5 mg Route: Inhalation; db 07:15 Drug: Furosemide IVP 40 mg Route: IVP; Site: right wrist; db 10:56 Follow up: Response: No adverse reaction db 07:15 Drug: MethylPrednisoLONE IVP 125 mg Route: IVP; Site: right forearm; db 10:56 Follow up: Response: No adverse reaction db 07:30 Drug: Ipratropium Inhalation Aerosol 0.5 mg Route: Inhalation; db 08:00 Drug: Ipratropium Inhalation Aerosol 0.5 mg Route: Inhalation; db 10:57 Follow up: Response: No adverse reaction db 09:00 Drug: Meropenem IV 1 grams Route: IV; Rate: per protocol; Site: right forearm; db 10:00 Follow up: Response: No adverse reaction; IV Status: Completed infusion; IV Intake: db 100ml 09:15 Drug: Enoxaparin Sub-Q 1 mg/kg Route: Sub-Q; Site: right lower abdomen; db 10:56 Follow up: Response: No adverse reaction db 09:15 Drug: Famotidine IVP 20 mg Route: IVP; Site: right forearm; db 10:56 Follow up: Response: No adverse reaction db Disposition Summary: 05/08/22 07:37 Hospitalization Ordered Hospitalization Status: Inpatient Admission roxanna Provider: Baidoo, Rufino roxanna Location: Telemetry/MedSurg (Inpatient) roxanna Condition: Fair roxanna Problem: new roxanna Symptoms: have improved roxanna Bed/Room Type: Standard roxanna Room Assignment: 402(05/08/22 10:16) dw Diagnosis - Dyspnea roxanna - Unspecified combined systolic (congestive) and diastolic (congestive) heart failure roxanna - Moderate persistent asthma roxanna Forms: - Medication Reconciliation Form roxanna - SBAR form roxanna Signatures: Dispatcher [employer] Peggy Welch RN RN dw Anderson, Corey, MD MD cha Doucette, Kyli, RN RN kd3 Samantha Long RN RN db Potepalov, Sergey, MD MD sp4 Corrections: (The following items were deleted from the chart) 10:16 07:37 roxanna dw
--- NOTE | 2022-05-08 07:38 | ER ---
Nurse's Notes [facility] Name: Erika Jacobosn Age: 87 yrs Sex: Female : 1935 Arrival Date: 05/08/2022 Time: 06:31 Bed 13 Private MD: Diagnosis: Dyspnea;Unspecified combined systolic (congestive) and diastolic (congestive) heart failure;Moderate persistent asthma Presentation: 05/08 06:51 Chief complaint: Patient's son or daughter states: She has been having issue breathing kd3 for the past 30 minutes. She cannot catch her breath at all and she is very tired. Coronavirus screen: Vaccine status: Patient reports receiving the 2nd dose of the covid vaccine. Ebola Screen: No symptoms or risks identified at this time. Initial Sepsis Screen: Does the patient meet any 2 criteria? RR > 20 per min. Altered Mental Status. HR > 90 bpm. Yes Does the patient have a suspected source of infection? Yes: Productive cough/pneumonia If YES to both, name of provider notified: Kyle Low MD. Risk Assessment: Do you want to hurt yourself or someone else? Patient reports no desire to harm self or others. Onset of symptoms was May 08, 2022. 06:51 Method Of Arrival: Wheelchair kd3 06:51 Acuity: ISHAN 2 kd3 Triage Assessment: 06:54 General: Appears ill, Behavior is calm, cooperative. Pain: Denies pain. Respiratory: kd3 Reports shortness of breath at rest Airway is patent Trachea midline Respiratory effort is labored, Onset: The symptoms/episode began/occurred today, the patient has severe shortness of breath. Historical: - PMHx: 06:53 Asthma; Hypertension; Hyperlipidemia; kd3 - Immunization history:: Adult Immunizations up to date, Client reports receiving the 2nd dose of the Covid vaccine. - Social history:: Smoking status: Patient denies any tobacco usage or history of. Screenin:28 [facility] ED Fall Risk Assessment (Adult) History of falling in the last 3 months, db including since admission No falls in past 3 months (0 pts) Confusion or Disorientation No (0 pts) Intoxicated or Sedated No (0 pts) Impaired Gait Yes (1 pt) Mobility Assist Device Used Yes (1 pt) Altered Elimination No (0 pt) Score/Fall Risk Level 0 - 2 = Low Risk Oriented to surroundings, Maintained a safe environment. Abuse screen: Denies threats or abuse. Denies injuries from another. Nutritional screening: No deficits noted. Tuberculosis screening: No symptoms or risk factors identified. Assessment: 07:27 Reassessment: SOB started approximately 2 hours ago according to family. patient has db left lower leg swelling. patient is austrian speaking only. General: Appears uncomfortable, Behavior is calm, cooperative. Pain: Denies pain. Neuro: Level of Consciousness is awake, alert, obeys commands, Oriented to person, place, time, situation. Cardiovascular: Rhythm is sinus rhythm. Respiratory: Airway is patent Respiratory effort is even, Respiratory pattern is regular, symmetrical, Breath sounds are diminished bilaterally. 07:50 Reassessment: patient assisted to bedside commode. db 07:58 Reassessment: patient to CT. db 08:30 Reassessment: Patient appears in no apparent distress at this time. Patient and/or db family updated on plan of care and expected duration. Pain level reassessed. Patient is alert, oriented x 3, equal unlabored respirations, skin warm/dry/pink. 09:00 Reassessment: Patient appears in no apparent distress at this time. Patient and/or db family updated on plan of care and expected duration. Pain level reassessed. Patient is alert, oriented x 3, equal unlabored respirations, skin warm/dry/pink. 10:00 Reassessment: Patient appears in no apparent distress at this time. Patient and/or db family updated on plan of care and expected duration. Pain level reassessed. Patient is alert, oriented x 3, equal unlabored respirations, skin warm/dry/pink. 10:40 Reassessment: report given to 4th floor VIVIENNE Romero. db 10:53 Reassessment: Patient appears in no apparent distress at this time. Patient and/or db family updated on plan of care and expected duration. Pain level reassessed. Patient is alert, oriented x 3, equal unlabored respirations, skin warm/dry/pink. Patient states feeling better. Vital Signs: 06:51 BP 146 / 73; Pulse 120; Resp 31; Temp 97.2; Pulse Ox 100% on Non-rebreather mask; kd3 Weight 50 kg; 07:21 BP 145 / 67; Pulse 78; Resp 18; Pulse Ox 100% on Nebulizer Mask; db 08:32 BP 144 / 59; Pulse 77; Resp 20; Pulse Ox 93% on 2 lpm NC; db 09:30 BP 130 / 60; Pulse 70; Resp 16; Pulse Ox 99% on 2 lpm NC; db 10:00 BP 125 / 65; Pulse 65; Resp 16; Pulse Ox 99% ; db 10:30 BP 130 / 60; Pulse 70; Resp 16; Pulse Ox 98% on 2 lpm NC; db ED Course: 06:31 Patient arrived in ED. es 06:34 Kyle Low MD is Attending Physician. sp4 06:53 Triage completed. kd3 06:54 Arm band placed on. kd3 06:56 Inserted saline lock: 20 gauge in right forearm, using aseptic technique. Blood kd3 collected. 07:07 Attending Physician role handed off by Kyle Low MD roxanna 07:07 Charly Guo MD is Attending Physician. roxanna 07:25 Samantha Long, VIVIENNE is Primary Nurse. db 07:27 XRAY CXR (1 view) In Process Unspecified. EDMS 07:36 Rufino Flores is Hospitalizing Provider. roxanna 07:55 Second set of blood cultures drawn by me. db 08:08 CT Chest For PE Angio In Process Unspecified. EDMS 08:41 [place] cath inserted, using sterile technique, 16 Fr., by me, balloon inflated, Patient db tolerated well. 10:54 Patient has correct armband on for positive identification. Bed in low position. Call db light in reach. Side rails up X 1. Client placed on continuous cardiac and pulse oximetry monitoring. NIBP monitoring applied. Warm blanket given. 10:54 No provider procedures requiring assistance completed. Patient admitted, IV remains in db place. Administered Medications: 07:10 Drug: Ipratropium Inhalation Aerosol 0.5 mg Route: Inhalation; db 07:15 Drug: Furosemide IVP 40 mg Route: IVP; Site: right wrist; db 10:56 Follow up: Response: No adverse reaction db 07:15 Drug: MethylPrednisoLONE IVP 125 mg Route: IVP; Site: right forearm; db 10:56 Follow up: Response: No adverse reaction db 07:30 Drug: Ipratropium Inhalation Aerosol 0.5 mg Route: Inhalation; db 08:00 Drug: Ipratropium Inhalation Aerosol 0.5 mg Route: Inhalation; db 10:57 Follow up: Response: No adverse reaction db 09:00 Drug: Meropenem IV 1 grams Route: IV; Rate: per protocol; Site: right forearm; db 10:00 Follow up: Response: No adverse reaction; IV Status: Completed infusion; IV Intake: db 100ml 09:15 Drug: Enoxaparin Sub-Q 1 mg/kg Route: Sub-Q; Site: right lower abdomen; db 10:56 Follow up: Response: No adverse reaction db 09:15 Drug: Famotidine IVP 20 mg Route: IVP; Site: right forearm; db 10:56 Follow up: Response: No adverse reaction db Medication: 10:54 VIS not applicable for this client. db Intake: 10:00 IV: 100ml; Total: 100ml. db Outcome: 07:37 Decision to Hospitalize by Provider. [facility] 10:54 Admitted to db 10:54 Admitted to ER Hold. [facility] for further documentation. 10:54 Condition: stable 10:54 Instructed on the need for admit. 11:10 Patient left the ED. iw Signatures: Dispatcher [employer] Charly Biswas MD MD cha Salyer, Quin Griggs RN RN iw Doucette, Kyli, RN RN kd3 Samantha Long RN RN db Potepalov, Sergey, MD MD sp4
[2022-05-08 07:50] LABS: Arterial Blood Carboxyhemoglob 0.7 % (0-1.5); Blood Gas Oxyhemoglobin 97.2 % (94-97); Blood O2 Saturation 99.2 % (92-98.5)
[2022-05-08] MEDS ORDERED: Meropenem 1000 MG/VIAL IV ONE (08:12)
[2022-05-08] MEDS ORDERED: NA CHLORIDE 0.9% 100 ML ONE (08:13)
[2022-05-08] MEDS ORDERED: FAMOTIDINE 20 MG/2 ML VIAL IV ONE (08:13)
--- NOTE | 2022-05-08 08:35 | RAD REPORT ---
EXAM DESCRIPTION: CT - Chest For Pe Angio - 05/08/2022 8:07 am CLINICAL HISTORY: Chest pain. CHEST PAIN COMPARISON: Thorax Wo Con dated 02/15/2022 TECHNIQUE: CT angiogram of the pulmonary arteries was performed with MIP. All CT scans are performed using dose optimization technique as appropriate and may include automated exposure control or mA/KV adjustment according to patient size. FINDINGS: No evidence of pulmonary thromboembolism. No acute aortic finding demonstrated. Aortic atherosclerosis. Moderate bilateral pulmonary opacities are present compatible with pulmonary. Mild atelectasis in bot h lung bases. Small bilateral pleural effusions. No concerning bony finding. IMPRESSION: No evidence of pulmonary thromboembolism. Moderate CHF versus volume overload pattern.
--- NOTE | 2022-05-08 08:39 | RAD REPORT ---
EXAM DESCRIPTION: RAD - Chest Single View - 05/08/2022 7:25 am CLINICAL HISTORY: CHEST PAIN Chest pain. COMPARISON: Chest Single View dated 03/11/2022; Chest Single View dated 02/15/2022; Chest Single View d ated 10/19/2021; Chest Single View dated 10/10/2021 FINDINGS: Portable technique limits examination quality. Moderate bilateral pulmonary opacities are present which may represent pulmonary edema or pneumonia. The heart is mildly prominent in size. No displaced fractures.Aortic atherosclerosis. IMPRESSION: Moderate CHF versus pneumonia pattern.
[2022-05-08] MEDS ORDERED: ENOXAPARIN 40 MG/0.4 ML SQ ONE (09:29)
[2022-05-08 10:02] LABS: Specific Gravity 1.016 (1.005-1.030); Urine Bacteria None Seen /HPF (<20); Urine Bilirubin NEGATIVE (Negative); Urine Blood Negative (Negative); Urine Clarity Clear (Clear); Urine Color Colorless (Yellow); Urine Glucose NEGATIVE (Negative); Urine Protein NEGATIVE (Negative); Urine RBC <5 /HPF (None Seen); Urine Urobilinogen Normal (Normal); Urine pH 5.5 (5.0-7.0)
--- NOTE | 2022-05-08 10:06 | P.HP ---
Certification for Inpatient Patient admitted to: Observation With expected LOS: <2 Midnights Practitioner: I am a practitioner with admitting privileges, knowledge of patient current condition, hospital course, and medical plan of care. Services: Services provided to patient in accordance with Admission requirements found in Title 42 Section 412.3 of the Code of Federal Regulations Patient History Date of Service: 05/08/22 Reason for admission: Shortness of breath History of Present Illness: 87-year-old woman with a history of diastolic heart failure presented to the emergency department due to sudden onset shortness of breath a few hours before presentation. According to the son patient woke up in the middle of the night with shortness of breath. No complaint of chest pain or prior cough or fever. He brought patient to the emergency department where labs showed lactic acidosis, initiated troponin negative. CTA thorax demonstrated CHF versus volume overload. Patient given IV Lasix, bronchodilators, IV steroid. Patient hospitalized for further management. Allergies No Known Allergies Allergy (Verified 09/03/18 08:32) Home Medications: Aspirin Chewable [Aspirin Chewable*] 81 mg PO DAILY 02/15/22 Atorvastatin Calcium [Lipitor*] 20 mg PO BEDTIME 02/15/22 Benzonatate [Tessalon Perle*] 200 mg PO TIDP PRN 02/15/22 Losartan Potassium [Cozaar] 25 mg PO DAILY 02/15/22 carvediloL [Coreg*] 6.25 mg PO DAILY 02/15/22 Furosemide [Lasix*] 20 mg PO DAILY #30 tab 02/17/22 - Past Medical/Surgical History Diabetic: No -: Hypertension -: Dyslipidemia -: CVA -: kidney stones -: Asthma -: Diastolic heart failure -: Cholecystectomy Psychosocial/ Personal History: Patient lives at home with her children. - Social History Alcohol use: No CD- Drugs: No Caffeine use: Yes Review of Systems Other: Patient denies any abdominal pain, no nausea vomiting or diarrhea. Except as documented, all other systems reviewed and negative. Physical Examination - Physical Exam General: Alert, In no apparent distress, Oriented x3, Obese HEENT: Atraumatic, PERRLA, Mucous membr. moist/pink, Sclerae nonicteric Neck: Supple, JVD not distended Respiratory: Clear to auscultation bilaterally, Crackles/rales (Mild bibasilar crackles) Cardiovascular: Regular rate/rhythm, Normal S1 S2, Edema (1+ bilateral lower extremity edema) Gastrointestinal: Normal bowel sounds, Soft and benign, Non-distended, No tenderness Musculoskeletal: No swelling Integumentary: No rashes, No cyanosis Neurological: Normal strength at 5/5 x4 extr, Cranial nerves 3-12 intact Lymphatics: No axilla or inguinal lymphadenopathy - Studies Laboratory Data (last 24 hrs) 05/08/22 06:49: PT 11.1, INR 1.01, APTT 33.1 05/08/22 06:49: WBC 10.70, Hgb 11.5 L, Hct 37.2, Plt Count 357 05/08/22 06:49: Sodium 135 L, Potassium 3.5, BUN 14, Creatinine 0.82, Glucose 245 H, Magnesium 2.5 H, Total Bilirubin 0.5, AST 24, ALT 27, Alkaline Phosphatase 113, Lipase 65 Assessment and Plan - Problems (Diagnosis) (1) Lactic acidosis Current Visit: Yes Status: Acute (2) Acute on chronic diastolic heart failure Current Visit: No Status: Acute (3) Acute respiratory failure with hypoxia Current Visit: No Status: Acute (4) Hypertension Current Visit: No Status: Acute Qualifiers: Hypertension type: primary hypertension Qualified Code(s): I10 - Essential (primary) hypertension - Plan Place under observation on the medical floor. Troponin mildly elevated. Continue to trend. IV Lasix for CHF exacerbation Aspirin, corg. Supplemental oxygen. Resume other home medications. Resume home antihypertensives.
--- NOTE | 2022-05-08 10:31 | RAD REPORT ---
EXAM DESCRIPTION: US - Extrem Venous W Compress Neri - 05/08/2022 10:06 am CLINICAL HISTORY: SWELLING Bilateral leg edema and swelling. COMPARISON: No comparisons TECHNIQUE: Real-time sonographic interrogation of the left and right lower extremity deep venous sys tems was performed. FINDINGS: Normal compressibility, flow augmentation, phasic flow and spontaneous flow is identified in both the left and right lower extremity deep venous systems. IMPRESSION: No sonographic evidence of left or right lower extremity deep venous thrombosis.
[2022-05-08] MEDS ORDERED: ACETAMINOPHEN 500 MG TAB PO PRN (10:38)
[2022-05-08] MEDS ORDERED: ALBUTEROL 2.5 MG/3 ML NEB SOL NEB PRN (10:38)
[2022-05-08] MEDS ORDERED: ONDANSETRON 4 MG/2 ML VIAL IV PRN (10:38)
[2022-05-08 11:35] VITALS: BMI 19.5
[2022-05-08] MEDS: IPRATROPIUM BROM 0.5MG/2.5ML NEB SCH ×3 (12:00→20:10)
[2022-05-08] MEDS ORDERED: BENZONATATE 100 MG CAP PO PRN (15:40)
[2022-05-08] MEDS: ASPIRIN 81 MG CHEWABLE TABLET PO SCH (16:07)
[2022-05-08] MEDS: FUROSEMIDE 40 MG/4 ML VIAL IV SCH (16:07)
[2022-05-08] MEDS ORDERED: D50W 25 GM/50 ML SYRINGE IV PRN (20:37)
[2022-05-08] MEDS ORDERED: GLUCAGON 1 MG/VIAL IM PRN (20:37)
[2022-05-08] MEDS ORDERED: D10W 125 ML IV PRN (20:41)
[2022-05-08] MEDS: INSULIN -REGULAR HUMAN 50 UNIT/0.5 ML ML SQ SCH (21:00)
[2022-05-08] MEDS ORDERED: ATORVASTATIN 20 MG TAB PO SCH (21:00)
[2022-05-08 21:57] LABS: SARS-COV-2 RT PCR NEGATIVE (NEGATIVE)
[2022-05-09] MEDS: IPRATROPIUM BROM 0.5MG/2.5ML NEB SCH ×2 (01:15→08:30)
[2022-05-09 04:08] LABS: Magnesium 2.1 mg/dL (1.6-2.4); Phosphorus 3.1 mg/dL (2.5-4.9); Potassium 3.5 mEq/L (3.5-5.1)
[2022-05-09 04:10] LABS: Absolute Lymphocytes (CBC) 1.6 K/uL (0.7-4.9); Hematocrit 33.7 % (36.0-45.0); Lymphocytes % 12.1 % (15.3-44.8); MCV 74.5 fL (80-100); MPV 8.7 fL (7.6-11.3); RBC Red Blood Cell Count 4.52 M/uL (3.86-4.86)
[2022-05-09 05:45] LABS: Platelet Estimate ADEQ; Polychromasia SLIGHT
[2022-05-09 05:49] LABS: Blood Morphology Comment NOTED (NOT SEEN)
[2022-05-09] MEDS: FUROSEMIDE 40 MG/4 ML VIAL IV SCH (08:48)
[2022-05-09] MEDS: INSULIN -REGULAR HUMAN 50 UNIT/0.5 ML ML SQ SCH (08:48)
[2022-05-09] MEDS: ASPIRIN 81 MG CHEWABLE TABLET PO SCH (08:49)
[2022-05-09] MEDS ORDERED: ENOXAPARIN 40 MG/0.4 ML SQ SCH (09:00)
[2022-05-09] MEDS ORDERED: ASPIRIN EC 81 MG TAB PO SCH (09:00)
[2022-05-09] MEDS ORDERED: carvediloL 6.25 MG TAB PO SCH (09:00)
[2022-05-09] MEDS ORDERED: LOSARTAN POTASSIUM 50 MG TABLET PO SCH (09:00)
[2022-05-09] MEDS ORDERED: POTASSIUM CL SA 10 MEQ TAB PO ONE (09:00)
--- NOTE | 2022-05-09 10:20 | P.DS ---
Admission Date: 05/08/22 Discharge Date: 05/09/22 Disposition: ROUTINE DISCHARGE Discharge Condition: FAIR Reason for Admission: Shortness of breath - Problems (1) Lactic acidosis Current Visit: Yes Status: Acute (2) Acute on chronic diastolic heart failure Current Visit: No Status: Acute (3) Acute respiratory failure with hypoxia Current Visit: No Status: Acute (4) Hypertension Current Visit: No Status: Acute Qualifiers: Hypertension type: primary hypertension Qualified Code(s): I10 - Essential (primary) hypertension Brief History of Present Illness: 87-year-old woman with a history of diastolic heart failure presented to the emergency department due to sudden onset shortness of breath a few hours before presentation. According to the son patient woke up in the middle of the night with shortness of breath. No complaint of chest pain or prior cough or fever. He brought patient to the emergency department where labs showed lactic acidosis, initiated troponin negative. CTA thorax demonstrated CHF versus volume overload. Patient given IV Lasix, bronchodilators, IV steroid. Patient hospitalized for further management. Vital Signs/Physical Exam: Temp Pulse Resp BP Pulse Ox 97.2 F 79 16 136/63 98 05/09/22 07:50 05/09/22 08:49 05/09/22 07:50 05/09/22 08:49 05/09/22 07:50 Laboratory Data at Discharge: WBC 13.20 thou/uL (4.3-10.9) H 05/09/22 02:43 Hgb 10.9 g/dL (12.0-15.0) L 05/09/22 02:43 Hct 33.7 % (36.0-45.0) L 05/09/22 02:43 Plt Count 344 thou/uL (152-406) 05/09/22 02:43 PT 11.1 SECONDS (9.5-12.5) 05/08/22 06:49 INR 1.01 05/08/22 06:49 APTT 33.1 SECONDS (24.3-36.9) 05/08/22 06:49 Sodium 135 mEq/L (136-145) L 05/09/22 02:43 Potassium 3.5 mEq/L (3.5-5.1) 05/09/22 02:43 BUN 28 mg/dL (7-18) H 05/09/22 02:43 Creatinine 0.83 mg/dL (0.55-1.02) 05/09/22 02:43 Glucose 187 mg/dL (74-106) H 05/09/22 02:43 Phosphorus 3.1 mg/dL (2.5-4.9) 05/09/22 02:43 Magnesium 2.1 mg/dL (1.6-2.4) 05/09/22 02:43 Total Bilirubin 0.5 mg/dL (0.2-1.0) 05/08/22 06:49 AST 24 U/L (15-37) 05/08/22 06:49 ALT 27 U/L (13-56) 05/08/22 06:49 Alkaline Phosphatase 113 U/L (45-117) 05/08/22 06:49 Lipase 65 U/L (13-75) 05/08/22 06:49 Home Medications: Aspirin Chewable [Aspirin Chewable*] 81 mg PO DAILY 02/15/22 Atorvastatin Calcium [Lipitor*] 20 mg PO BEDTIME 02/15/22 Benzonatate [Tessalon Perle*] 200 mg PO TIDP PRN 02/15/22 Losartan Potassium [Cozaar] 25 mg PO DAILY 02/15/22 carvediloL [Coreg*] 6.25 mg PO DAILY 02/15/22 Furosemide 40 mg PO DAILY #35 tab 05/09/22 Ipratropium/Albuterol Sulfate [Iprat-Albut 0.5-3(2.5) mg/3 ml] 3 ml IH Q6H PRN #120 amp 05/09/22 Nebulizer 1 each QID #1 ea 05/09/22 New Medications: Furosemide 40 mg PO DAILY #35 tab Ipratropium/Albuterol Sulfate [Iprat-Albut 0.5-3(2.5) mg/3 ml] 3 ml IH Q6H PRN #120 amp PRN Reason: Shortness Of Breath Nebulizer 1 each QID #1 ea Diet: AHA Activity: Ad mark anthony Followup: NONE,NONE [Primary Care Provider] - 1-2 Weeks
--- NOTE | 2022-05-09 10:56 | P.DS ---
Admission Date: 05/08/22 Discharge Date: 05/09/22 Disposition: ROUTINE DISCHARGE Discharge Condition: FAIR Reason for Admission: Shortness of breath - Problems (1) Lactic acidosis Current Visit: Yes Status: Acute (2) Acute on chronic diastolic heart failure Current Visit: No Status: Acute (3) Acute respiratory failure with hypoxia Current Visit: No Status: Acute (4) Hypertension Current Visit: No Status: Acute Qualifiers: Hypertension type: primary hypertension Qualified Code(s): I10 - Essential (primary) hypertension Brief History of Present Illness: 87-year-old woman with a history of diastolic heart failure presented to the emergency department due to sudden onset shortness of breath a few hours before presentation. According to the son patient woke up in the middle of the night with shortness of breath. No complaint of chest pain or prior cough or fever. He brought patient to the emergency department where labs showed lactic acidosis, initiated troponin negative. CTA thorax demonstrated CHF versus volume overload. Patient given IV Lasix, bronchodilators, IV steroid. Patient hospitalized for further management. Hospital Course: Patient placed under observation on the medical floor. She was treated with IV Lasix for CHF exacerbation. Her respiratory condition improved with treatment. Patient is currently asymptomatic and at baseline and deemed stable for discharge. Patient prescribed Lasix 40 mg twice daily for 5 days followed by Lasix 40 mg daily. Vital Signs/Physical Exam: Temp Pulse Resp BP Pulse Ox 97.2 F 79 16 136/63 98 05/09/22 07:50 05/09/22 08:49 05/09/22 07:50 05/09/22 08:49 05/09/22 07:50 General: Alert, In no apparent distress, Oriented x3 HEENT: Mucous membr. moist/pink Neck: JVD not distended Respiratory: Clear to auscultation bilaterally, Normal air movement Cardiovascular: No edema, Regular rate/rhythm, Normal S1 S2 Gastrointestinal: Normal bowel sounds, Soft and benign, Non-distended, No tenderness Musculoskeletal: No swelling, No tenderness Integumentary: No rashes, No cyanosis Neurological: Normal strength at 5/5 x4 extr Laboratory Data at Discharge: WBC 13.20 thou/uL (4.3-10.9) H 05/09/22 02:43 Hgb 10.9 g/dL (12.0-15.0) L 05/09/22 02:43 Hct 33.7 % (36.0-45.0) L 05/09/22 02:43 Plt Count 344 thou/uL (152-406) 05/09/22 02:43 PT 11.1 SECONDS (9.5-12.5) 05/08/22 06:49 INR 1.01 05/08/22 06:49 APTT 33.1 SECONDS (24.3-36.9) 05/08/22 06:49 Sodium 135 mEq/L (136-145) L 05/09/22 02:43 Potassium 3.5 mEq/L (3.5-5.1) 05/09/22 02:43 BUN 28 mg/dL (7-18) H 05/09/22 02:43 Creatinine 0.83 mg/dL (0.55-1.02) 05/09/22 02:43 Glucose 187 mg/dL (74-106) H 05/09/22 02:43 Phosphorus 3.1 mg/dL (2.5-4.9) 05/09/22 02:43 Magnesium 2.1 mg/dL (1.6-2.4) 05/09/22 02:43 Total Bilirubin 0.5 mg/dL (0.2-1.0) 05/08/22 06:49 AST 24 U/L (15-37) 05/08/22 06:49 ALT 27 U/L (13-56) 05/08/22 06:49 Alkaline Phosphatase 113 U/L (45-117) 05/08/22 06:49 Lipase 65 U/L (13-75) 05/08/22 06:49 Home Medications: Aspirin Chewable [Aspirin Chewable*] 81 mg PO DAILY 02/15/22 Atorvastatin Calcium [Lipitor*] 20 mg PO BEDTIME 02/15/22 Benzonatate [Tessalon Perle*] 200 mg PO TIDP PRN 02/15/22 Losartan Potassium [Cozaar] 25 mg PO DAILY 02/15/22 carvediloL [Coreg*] 6.25 mg PO DAILY 02/15/22 Furosemide 40 mg PO DAILY #35 tab 05/09/22 Ipratropium/Albuterol Sulfate [Iprat-Albut 0.5-3(2.5) mg/3 ml] 3 ml IH Q6H PRN #120 amp 05/09/22 Nebulizer 1 each QID #1 ea 05/09/22 New Medications: Furosemide 40 mg PO DAILY #35 tab Ipratropium/Albuterol Sulfate [Iprat-Albut 0.5-3(2.5) mg/3 ml] 3 ml IH Q6H PRN #120 amp PRN Reason: Shortness Of Breath Nebulizer 1 each QID #1 ea Diet: AHA Activity: Ad mark anthony Followup: Preston Tubbs MD [ACTIVE - CAN ADMIT] -
[2022-05-09 12:10] VITALS: BP 126/60; TEMP 97.6
--- NOTE | 2022-05-09 12:26 | EKG ---
Test Date: 2022-05-08 Test Time: 06:44:13 Asthma Educator: RV MEASUREMENT RESULTS: Intervals: Rate: 102 NJ: 178 QRSD: 144 QT: 392 QTc: 510 Cosby: P: 66 NJ: 178 QRS: 192 T: 42 INTERPRETIVE STATEMENTS: Sinus tachycardia with fusion complexes Nonspecific intraventricular block Abnormal ECG Compared to ECG 03/11/2022 20:14:51 Fusion complex(es) now present Sinus rhythm no longer present Left-axis deviation no longer present Left bundle-branch block no longer present Electronically Signed On 05-09-22 12:24:58 CDT by Preston Tubbs
[2022-05-09 12:27] VITALS: O2SAT 96
== END 2022-05-09 13:35 | disposition home or self-care (01) ==
LOC: ER 06:29 → ERHOLD 10:00 → 4TH 10:41
PROVIDERS: ADMIT Internal Medicine; ATTEND Internal Medicine
DX: J96.01 Acute respiratory failure with hypoxia (principal); I50.33 Acute on chronic diastolic (congestive) heart failure; E87.21 Acute metabolic acidosis; J45.909 Unspecified asthma, uncomplicated; I10 Essential (primary) hypertension; E78.5 Hyperlipidemia, unspecified; Z20.822 Contact with and (suspected) exposure to COVID-19
CPT/HCPCS: 93005; 87040 ×2; 85025 ×2; 81001; 80048 ×2; 36415 ×2; 83735 ×2; 82550; 87205; 84100; 85610; 82947 ×3; 85379; 80076; 83605 ×2; 85730; 84484 ×4; 83690; 83880; 0240U; 71275; 71045; 93970; 94640; 82805; 94760 ×4; 51702; 96372; 99285; Q9967; J1815 ×2; J1940 ×3; J7644 ×5; J1650 ×2; J2185; J2930; G0378 ×3

== ENCOUNTER 2022-07-10 18:55 | Emergency (ER) | payer OTHER ==
--- OUTSIDE RECORDS SUMMARY | 2022-07-10 19:16 | XMS REPORT | Continuity of Care Document ---
:[address] [facility] t Address [address] [facility] [place] [address] Care Team Providers Name Role Phone uW Mae MD Primary Care Physician LILIANA LI Attending Clinician Unavailable WON MATT Attending Clinician Unavailable WON MATT Attending Clinician Unavailable ANGELA CUNNINGHAM Attending Clinician Unavailable ANGELA CUNNINGHAM Attending Clinician Unavailable CECI LO K.HGertrude Attending Clinician Unavailable Lab, Ang - Db Attending Clinician Unavailable Ceci Lo MD K.HGertrude Attending Clinician Doctor Unassigned, Napoleon Attending Clinician Unavailable Pob, Adc Lab Main Attending Clinician Unavailable Samreen Lee LMSW Attending Clinician STELLA GOODWIN Attending Clinician Unavailable KERLINE BURTON Attending Clinician Unavailable Won Matt MD Attending Clinician Nurse, Lucie Neurology Attending Clinician Unavailable Unknown, Attending Attending Clinician Unavailable Jh MURGUIA, Emma Attending Clinician Nirmala HOSIERY PAIRER, Araseli Attending Clinician Rea HOSIERY PAIRER, Tamela Attending Clinician TAMELA LUCIA Attending Clinician Unavailable CHARY DONALD Attending Clinician Unavailable Chary Infante Attending Clinician DANIEL PÉREZ Attending Clinician Unavailable ITALIA PRESTON Attending Clinician Unavailable Keerthi Cuenca MD Attending Clinician Ree Mccartney MD Attending Clinician Daniela, Thom Db Test Attending Clinician Unavailable Tera Cuenca Attending Clinician TERA RICKS Attending Clinician Unavailable KALYN PARADA Attending Clinician Unavailable KEERTHI CUENCA Attending Clinician Unavailable Lyla GLASS, Amaya Attending Clinician Gerardo Tee MD Attending Clinician Pamela Jain RN Attending Clinician Unavailable Austin Hobson MD Attending Clinician AUSTIN HOBSON Attending Clinician Unavailable JESSICA DON Attending Clinician Unavailable AMAYA RUSS Attending Clinician Unavailable Jessica Alvarez Attending Clinician Vaccine, Ang Db Cbc Fam Attending Clinician Unavailable Lab, Adc Fam Pob I Attending Clinician Unavailable Daniel Pérez MD Attending Clinician Provider, [facility] Attending Clinician Unavailable OnealMine Pimentel Attending Clinician MINE NO Attending Clinician Unavailable Ethan Scott DO Attending Clinician 1, Adc Lab Attending Clinician Unavailable Renata Thacker Attending Clinician Unavailable Mirella Villalobos Attending Clinician [phone] Shy Miller Attending Clinician Unavailable 2, Adc Lab Attending Clinician Unavailable LILIANA LI Admitting Clinician Unavailable BOB HUI Admitting Clinician Unavailable WON MATT Admitting Clinician Unavailable AUSTIN HBOSON Admitting Clinician Unavailable ADRIANA HARTMANN Admitting Clinician Unavailable Payers Payer Name Policy Type Policy Number Effective Date Expiration Date Michael alvarez AARP/MEDICARE [id number] 2019 COMPLETE 00:00:00 WELLMED/AARP [id number] 2019 MEDICARE 00:00:00 [place]VANTAGE [place]ICA[place] [id number] 2017 [place] 00:[place]:00 [id number] [facility] [id number] [facility] [id number] 2019 2020 [facility] - 00:00:00 00:00:00 Community MEDICARE [facility] [...] Medical Branch Uses Uses Disease Active Univers Greenlandic as Greenlandic as 07-10 it y of primary primary 00:00: [place] spoken spoken 00 Medical language language Branch History of History of Disease Active Overview : Univers CVA CVA - Formattin ity of (cerebrova (cerebrova 00:00: g of this [place] scular scular 00 note Medical accident) accident) [...] Univers reflux reflux 2- ity of 00:00: [place] 00 Medical Branch Edema of Edema of Disease Active 2020-02 Unive rs both legs both legs 2- ity of 00:00: [place] 00 Medical Branch Decreased Decreased Disease Active 2020-02 Uni vers appetite appetite 2-06 ity of 00:00: [place] 00 Medical Branch Asthma in Asthma in Disease Active 2021-0 Uni vers adult, adult, 8-29 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: [place]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 00 Me dical , , Branch uncomplica uncomplica kendrick kendrick Asthma in Asthma in Disease Active Uni vers adult, adult, 8-29 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: [place]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 00 Me dical , , Branch uncomplica uncomplica kendrick kendrick 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 9-30 it y of hypothyroi hypothyroi 00[place] dis[place] dism 00 Medical Branch Memory Memory Disease Active Univers impairment impairment 9-25 it y of 00:00: [place] Medical Branch Hair loss Hair loss Disease Active Uni vers 9-25 ity of 00:00: [place] 00 Medical Branch COVID-19 COVID-19 Disease Active Unive rs virus virus 7-20 it[place] of infection infection 00:00[place] GERD GERD Disease Active Univers (gastroeso (gastroeso 7-20 it y of phageal phageal 00:00: [place] reflux reflux 00 Medical disease) disease) Branch Neuropathy Neuropathy Disease Active U nivers of both of both 7-20 ity of feet feet 00:00: [place] [facility] Ureteropel Ureteropel Disease Active 2019- U nivers bessie bessie 5-25 ity of junction junction 00:00: [place] (UPJ) (UPJ) 00 Medical obstructio obstructio Br anch n, left n, left Abdominal Abdominal Disease [facility] Sepsis Sepsis Disease Recurre [facility] Hypertensi Hypertensi Disease Active [facility] Center Bilateral Bilateral Disease Active 2018-02 Uni vers foot pain foot pain 1-26 ity of 00:00: [place] Medical [facility] Kidney Kidney Disease Active 2017-02 Univers stone stone 0-15 ity of 00:00: [place] [facility] Abnormal Abnormal Disease Active 2017-02 Overview: Un briana liver liver 0-15 Formattin ity of ultrasound ultrasound 00:00: g of this 00 note Medical might be Branch different from the original. 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 0-05 it y of 2 diabetes 2 diabetes 00:[place] mellitus mellitus 00 Medica l Branch Essential Essential Disease Active 2016-02 Uni vers hypertensi hypertensi 0-02 it y of on on 00:00: [place] [address] Medical Branch HLD HLD Disease Active 2016-02 Univers (hyperlipi (hyperlipi 0-02 it y of demia) demia) 00:00: [place] [address] Medical Branch History of History of Disease Active 2016-02 U nivers chest pain chest pain 0-02 it y of 00:00: [place] [address] Medical Branch Palpitatio Palpitatio Disease Active 2016-02 U nivers ns ns 0-02 ity of 00:00: [place] [address] Medical Branch Osteoporos Osteoporos Disease Active U nivers is is ity of [facility] Abnormal Abnormal Disease Active [facility] rs EKG EKG ity of [facility] Asthma Asthma Disease Active [facility] of Medicin e History of History of Disease [facility] with with of residual residual Medici n left-sided left-sided e weakness weakness No known No known Disease [facility] active active [facility] problems problems of Medicin e Allergies, Adverse Reactions, Alerts Allergy Allergy Status Severity Reaction(s) Onset Inactive Treating Comm ents Source Name Type Date Date Clinician NO KNOWN Allergy Active MOISES Tang ALLERGLALY Rossi [facility] NO KNOWN Drug Active Univers ALLERGIE Class ity of S [facility] Social History Social Habit Start Date Stop Date Quantity Comments Source History SDOH [facility] Alcohol Std Medical Cent[facility] r Drinks History SDOH [facility] Alcohol Binge Medical Marilyn ter History SDOH [facility] Alcohol Comment Medical C enter Exposure to 2022-06-28 2022-07-08 Not sure University SARS-CoV-2 00:00:00 08:44:00 [facility] (event) [place] Tobacco use and 2021-08-27 2021-08-27 Smokeless tobacco Un iversity of exposure 00:00:00 00:00:00 non-user [facility] Alcohol intake 2019-07-12 2019-07-[address] [facility] 00:00:00 00:00:00 non-drinker of Medical Ce nter alcohol (finding) History SDOH 2019-07-10 2019-07-10 1 MOISES Marte Alcohol Frequency 00:00:00 00:00:00 [facility] Sex Assigned At [birth year] MOISES Christiansons 00:00:00 00:00:00 Medical Center Smoking Status Start Date Stop Date Source Never smoked tobacco [facility] Medications Ordered Filled Start Stop Current Ordering Indication Dosage Frequency Signature Comments Components Source Medication Medication Date Date Medication? Clinician (SIG) Name Name furosemide Yes [id number] 80mg Take 2 Univers 40 mg 5-16 tablets by ity of tablet 00:00: [facility] 00 every Medical morning Branch and evening. furosemide Yes [id number] 80mg Take 2 Univers 40 mg 5-16 tablets by ity of tablet 00:00: mouth [place] 00 every Medical morning Branch and evening. furosemide Yes [id number] 80mg Take 2 Univers 40 mg 5-16 tablets by ity of tablet 00:00: [facility] 00 every Medical morning Branch and evening. furosemide Yes [id number] 80mg Take 2 Univers 40 mg 5-16 tablets by ity of tablet 00:00: [facility] 00 every Medical morning Branch and evening. regadenoson 2022- No [id number] .4mg 0.4 mg, IV Univers (LEXISCAN) 06-23 Push, ity of injection 17:00: 15:51 [place]CE, 1 [place] 0.4 mg 00 :00 dose, On [facility] Branch 06/23/22 at 1200, Routine
tribal council member approving Restricted medication : CECI LO tc 2022- No [id number] 43.8mCi 43.8 Unive rs 99m-tetrofo 06-23 millicurie i ty of smin 15:30: 15:19 , [place] (MYOVIEW) 00 :00 Intravenou Medi nagelica injection s, ONCE, 1 Bran ch 43.8 dose, On [facility] 06/23/22 at 1030, Routine tc 2022- No [id number] 16.5mCi 16.5 Unive rs 99m-tetrofo 06-23 millicurie i ty of smin 13:45: 13:45 , [place] (MYOVIEW) 00 :00 Intravenou Medi angelica injection s, ONCE, 1 Bran ch 16.5 dose, On millicurie Luisa 06/23/22 at 0845, Routine furosemide 2022-0 Yes [id number] 80mg Take 2 Univers 40 mg 5-09 tablets by ity of tablet 00:00: mouth [place] 00 every Medical morning Branch and evening. furosemide 2022-0 Yes [id number] 80mg Take 2 Univers 40 mg 5-09 tablets by ity of tablet 00:00: mouth [place] 00 every Medical morning Branch and evening. furosemide 2022-0 Yes [id number] 80mg Take 2 Univers 40 mg 5-09 tablets by ity of tablet 00:00: mouth [place] 00 every Medical morning Branch and evening. furosemide 2022-0 Yes [id number] 80mg Take 2 Univers 40 mg 5-09 tablets by ity of tablet 00:00: mouth [place] 00 every Medical morning Branch and evening. furosemide 2022-0 Yes [id number] 80mg Take 2 Univers 40 mg 5-09 tablets by ity of tablet 00:00: mouth [place] 00 every Medical morning Branch and evening. furosemide 2022-0 Yes [id number] 80mg Take 2 Univers 40 mg 5-09 tablets by ity of tablet 00:00: mouth [place] 00 every Medical morning Branch and evening. furosemide 2022-0 2023- No [id number] 80mg Take 2 Univers 40 mg 5-09 05-16 tablets by ity of tablet 00:00: 00:00 mouth [place] 00 :00 every Medical morning Branch and evening. furosemide 2022-0 2023- No [id number] 80mg Take 2 Univers 40 mg 5-09 05-16 tablets by ity of tablet 00:00: 00:00 mouth [place] 00 :00 every Medical morning Branch and evening. atorvastati 2022-0 Yes [id number] 20mg Take 1 Univers n 20 mg 4-28 tablet by ity of tablet 00:00: mouth at [place] 00 bedtime. Medical Branch furosemide 2022-0 Yes [id number] 40mg Take 1 Univers 40 mg 4-28 tablet by ity of tablet 00:00: mouth [place] 00 every Medical morning Branch and evening. losartan 50 2022-0 Yes [id number] 25mg Take 0.5 Univers mg tablet 4-28 tablets by ity of 00:00: mouth [place] 00 every day Medical at 1200 Branch (noon). ipratropium 2022-0 Yes [id number] .5mg Inhale 2.5 Univers 0.02 % 4-28 mL every 6 ity of nebulizer 00:00: (six) [place] solution 00 hours as Medical needed for Branch Wheezing or Shortness of Breath. albuterol 2022-0 Yes [id number] 2.5mg Inhale 3 Univers 2.5 mg /3 4-28 mL every 8 ity of mL (0.083 00:00: (eight) [place] %) 00 hours as Medical nebulizer needed for Bran ch solution Wheezing or Shortness of Breath. atorvastati 2022-0 Yes [id number] 20mg Take 1 Univers n 20 mg 4-28 tablet by ity of tablet 00:00: mouth at [place] 00 bedtime. Medical Branch furosemide 2022-0 Yes [id number] 40mg Take 1 Univers 40 mg 4-28 tablet by ity of tablet 00:00: mouth [place] 00 every Medical morning Branch and evening. losartan 50 2022-0 Yes [id number] 25mg Take 0.5 Univers mg tablet 4-28 tablets by ity of 00:00: mouth [place] 00 every day Medical at 1200 Branch (noon). ipratropium 2022-0 Yes [id number] .5mg Inhale 2.5 Univers 0.02 % 4-28 mL every 6 ity of nebulizer 00:00: (six) [place] solution 00 hours as Medical needed for Branch Wheezing or Shortness of Breath. albuterol 2022-0 Yes [id number] 2.5mg Inhale 3 Univers 2.5 mg /3 4-28 mL every 8 ity of mL (0.083 00:00: (eight) [place] %) 00 hours as Medical nebulizer needed for Bran ch solution Wheezing or Shortness of Breath. atorvastati 2022-0 Yes [id number] 20mg Take 1 Univers n 20 mg 4-28 tablet by ity of tablet 00:00: mouth at [place] 00 bedtime. Medical Branch furosemide 2022-0 Yes [id number] 40mg Take 1 Univers 40 mg 4-28 tablet by ity of tablet 00:00: mouth [place] 00 every Medical morning Branch and evening. losartan 50 2022-0 Yes [id number] 25mg Take 0.5 Univers mg tablet 4-28 tablets by ity of 00:00: mouth [place] 00 every day Medical at 1200 Branch (noon). ipratropium 2022-0 Yes [id number] .5mg Inhale 2.5 Univers 0.02 % 4-28 mL every 6 ity of nebulizer 00:00: (six) [place] solution 00 hours as Medical needed for Branch Wheezing or Shortness of Breath. albuterol 2022-0 Yes [id number] 2.5mg Inhale 3 Univers 2.5 mg /3 4-28 mL every 8 ity of mL (0.083 00:00: (eight) [place] %) 00 hours as Medical nebulizer needed for Bran ch solution Wheezing or Shortness of Breath. atorvastati 2022-0 Yes [id number] 20mg Take 1 Univers n 20 mg 4-28 tablet by ity of tablet 00:00: mouth at [place] 00 bedtime. Medical Branch furosemide 2022-0 Yes [id number] 40mg Take 1 Univers 40 mg 4-28 tablet by ity of tablet 00:00: mouth [place] 00 every Medical morning Branch and evening. losartan 50 2022-0 Yes [id number] 25mg Take 0.5 Univers mg tablet 4-28 tablets by ity of 00:00: mouth [place] 00 every day Medical at 1200 Branch (noon). ipratropium 2022-0 Yes [id number] .5mg Inhale 2.5 Univers 0.02 % 4-28 mL every 6 ity of nebulizer 00:00: (six) [place] solution 00 hours as Medical needed for Branch Wheezing or Shortness of Breath. albuterol 2022-0 Yes [id number] 2.5mg Inhale 3 Univers 2.5 mg /3 4-28 mL every 8 ity of mL (0.083 00:00: (eight) [place] %) 00 hours as Medical nebulizer needed for Bran ch solution Wheezing or Shortness of Breath. atorvastati 2022-0 Yes [id number] 20mg Take 1 Univers n 20 mg 4-28 tablet by ity of tablet 00:00: mouth at [place] 00 bedtime. Medical Branch furosemide 2022-0 Yes [id number] 40mg Take 1 Univers 40 mg 4-28 tablet by ity of tablet 00:00: mouth [place] 00 every Medical morning Branch and evening. losartan 50 2022-0 Yes [id number] 25mg Take 0.5 Univers mg tablet 4-28 tablets by ity of 00:00: mouth [place] 00 every day Medical at 1200 Branch (noon). ipratropium 2022-0 Yes [id number] .5mg Inhale 2.5 Univers 0.02 % 4-28 mL every 6 ity of nebulizer 00:00: (six) [place] solution 00 hours as Medical needed for Branch Wheezing or Shortness of Breath. albuterol 2022-0 Yes [id number] 2.5mg Inhale 3 Univers 2.5 mg /3 4-28 mL every 8 ity of mL (0.083 00:00: (eight) [place] %) 00 hours as Medical nebulizer needed for Bran ch solution Wheezing or Shortness of Breath. atorvastati 2022-0 Yes [id number] 20mg Take 1 Univers n 20 mg 4-28 tablet by ity of tablet 00:00: mouth at [place] 00 bedtime. Medical Branch furosemide 2022-0 Yes [id number] 40mg Take 1 Univers 40 mg 4-28 tablet by ity of tablet 00:00: mouth [place] 00 every Medical morning Branch and evening. losartan 50 2022-0 Yes [id number] 25mg Take 0.5 Univers mg tablet 4-28 tablets by ity of 00:00: mouth [place] 00 every day Medical at 1200 Branch (noon). ipratropium 2022-0 Yes [id number] .5mg Inhale 2.5 Univers 0.02 % 4-28 mL every 6 ity of nebulizer 00:00: (six) [place] solution 00 hours as Medical needed for Branch Wheezing or Shortness of Breath. albuterol 2022-0 Yes [id number] 2.5mg Inhale 3 Univers 2.5 mg /3 4-28 mL every 8 ity of mL (0.083 00:00: (eight) [place] %) 00 hours as Medical nebulizer needed for Bran ch solution Wheezing or Shortness of Breath. atorvastati 2022-0 Yes [id number] 20mg Take 1 Univers n 20 mg 4-28 tablet by ity of tablet 00:00: mouth at [place] 00 bedtime. Medical Branch furosemide 2022-0 Yes [id number] 40mg Take 1 Univers 40 mg 4-28 tablet by ity of tablet 00:00: mouth [place] 00 every Medical morning Branch and evening. losartan 50 3-0 Yes [id number] 25mg Take 0.5 Univers mg tablet 4-28 tablets by ity of 00:00: mouth [place] 00 every day Medical at 1200 Branch (noon). ipratropium 3-0 Yes [id number] .5mg Inhale 2.5 Univers 0.02 % 4-28 mL every 6 ity of nebulizer 00:00: (six) [place] solution 00 hours as Medical needed for Branch Wheezing or Shortness of Breath. albuterol 2022-0 Yes [id number] 2.5mg Inhale 3 Univers 2.5 mg /3 4-28 mL every 8 ity of mL (0.083 00:00: (eight) [place] %) 00 hours as Medical nebulizer needed for Bran ch solution Wheezing or Shortness of Breath. atorvastati 2022-0 Yes [id number] 20mg Take 1 Univers n 20 mg 4-28 tablet by ity of tablet 00:00: mouth at [place] 00 bedtime. Medical Branch furosemide 2022-0 Yes [id number] 40mg Take 1 Univers 40 mg 4-28 tablet by ity of tablet 00:00: mouth [place] 00 every Medical morning Branch and evening. losartan 50 2022-0 Yes [id number] 25mg Take 0.5 Univers mg tablet 4-28 tablets by ity of 00:00: mouth [place] 00 every day Medical at 1200 Branch (noon). ipratropium 3-0 Yes [id number] .5mg Inhale 2.5 Univers 0.02 % 4-28 mL every 6 ity of nebulizer 00:00: (six) [place] solution 00 hours as Medical needed for Branch Wheezing or Shortness of Breath. albuterol 2022-0 Yes [id number] 2.5mg Inhale 3 Univers 2.5 mg /3 4-28 mL every 8 ity of mL (0.083 00:00: (eight) [place] %) 00 hours as Medical nebulizer needed for Bran ch solution Wheezing or Shortness of Breath. atorvastati 2022-0 Yes [id number] 20mg Take 1 Univers n 20 mg 4-28 tablet by ity of tablet 00:00: mouth at [place] 00 bedtime. Medical Branch furosemide 2022-0 Yes [id number] 40mg Take 1 Univers 40 mg 4-28 tablet by ity of tablet 00:00: mouth [place] 00 every Medical morning Branch and evening. losartan 50 2022-0 Yes [id number] 25mg Take 0.5 Univers mg tablet 4-28 tablets by ity of 00:00: mouth [place] 00 every day Medical at 1200 Branch (noon). ipratropium 3-0 Yes [id number] .5mg Inhale 2.5 Univers 0.02 % 4-28 mL every 6 ity of nebulizer 00:00: (six) [place] solution 00 hours as Medical needed for Branch Wheezing or Shortness of Breath. albuterol 2022-0 Yes [id number] 2.5mg Inhale 3 Univers 2.5 mg /3 4-28 mL every 8 ity of mL (0.083 00:00: (eight) [place] %) 00 hours as Medical nebulizer needed for Bran ch solution Wheezing or Shortness of Breath. atorvastati 2022-0 Yes [id number] 20mg Take 1 Univers n 20 mg 4-28 tablet by ity of tablet 00:00: mouth at [place] 00 bedtime. Medical Branch furosemide 2022-0 Yes [id number] 40mg Take 1 Univers 40 mg 4-28 tablet by ity of tablet 00:00: mouth [place] 00 every Medical morning Branch and evening. losartan 50 2022-0 Yes [id number] 25mg Take 0.5 Univers mg tablet 4-28 tablets by ity of 00:00: mouth [place] 00 every day Medical at 1200 Branch (noon). ipratropium 2022-0 Yes [id number] .5mg Inhale 2.5 Univers 0.02 % 4-28 mL every 6 ity of nebulizer 00:00: (six) [place] solution 00 hours as Medical needed for Branch Wheezing or Shortness of Breath. albuterol 2022-0 Yes [id number] 2.5mg Inhale 3 Univers 2.5 mg /3 4-28 mL every 8 ity of mL (0.083 00:00: (eight) [place] %) 00 hours as Medical nebulizer needed for Bran ch solution Wheezing or Shortness of Breath. atorvastati 2022-0 Yes [id number] 20mg Take 1 Univers n 20 mg 4-28 tablet by ity of tablet 00:00: mouth at [place] 00 bedtime. Medical Branch furosemide 2022-0 Yes [id number] 40mg Take 1 Univers 40 mg 4-28 tablet by ity of tablet 00:00: mouth [place] 00 every Medical morning Branch and evening. losartan 50 2022-0 Yes [id number] 25mg Take 0.5 Univers mg tablet 4-28 tablets by ity of 00:00: mouth [place] 00 every day Medical at 1200 Branch (noon). ipratropium 2022-0 Yes [id number] .5mg Inhale 2.5 Univers 0.02 % 4-28 mL every 6 ity of nebulizer 00:00: (six) [place] solution 00 hours as Medical needed for Branch Wheezing or Shortness of Breath. albuterol 2022-0 Yes [id number] 2.5mg Inhale 3 Univers 2.5 mg /3 4-28 mL every 8 ity of mL (0.083 00:00: (eight) [place] %) 00 hours as Medical nebulizer needed for Bran ch solution Wheezing or Shortness of Breath. atorvastati 2022-0 Yes [id number] 20mg Take 1 Univers n 20 mg 4-28 tablet by ity of tablet 00:00: mouth at [place] 00 bedtime. Medical Branch furosemide 2022-0 Yes [id number] 40mg Take 1 Univers 40 mg 4-28 tablet by ity of tablet 00:00: mouth [place] 00 every Medical morning Branch and evening. losartan 50 2022-0 Yes [id number] 25mg Take 0.5 Univers mg tablet 4-28 tablets by ity of 00:00: mouth [place] 00 every day Medical at 1200 Branch (noon). ipratropium 2022-0 Yes [id number] .5mg Inhale 2.5 Univers 0.02 % 4-28 mL every 6 ity of nebulizer 00:00: (six) [place] solution 00 hours as Medical needed for Branch Wheezing or Shortness of Breath. albuterol 2022-0 Yes [id number] 2.5mg Inhale 3 Univers 2.5 mg /3 4-28 mL every 8 ity of mL (0.083 00:00: (eight) [place] %) 00 hours as Medical nebulizer needed for Bran ch solution Wheezing or Shortness of Breath. atorvastati 2022-0 Yes [id number] 20mg Take 1 Univers n 20 mg 4-28 tablet by ity of tablet 00:00: mouth at [place] 00 bedtime. Medical Branch losartan 50 2022-0 Yes [id number] 25mg Take 0.5 Univers mg tablet 4-28 tablets by ity of 00:00: mouth [place] 00 every day Medical at 1200 [place] (noon). ipratropium 3-0 Yes [id number] .5mg Inhale 2.5 Univers 0.02 % 4-28 mL every 6 ity of nebulizer 00:00: (six) [place] solution 00 hours as Medical needed for Branch Wheezing or Shortness of Breath. albuterol 3-0 Yes [id number] 2.5mg Inhale 3 Univers 2.5 mg /3 4-28 mL every 8 ity of mL (0.083 00:00: (eight) [place] %) 00 hours as Medical nebulizer needed for Bran ch solution Wheezing or Shortness of Breath. atorvastati 2022-0 Yes [id number] 20mg Take 1 Univers n 20 mg 4-28 tablet by ity of tablet 00:00: mouth at [place] 00 bedtime. Medical Branch losartan 50 2022-0 Yes [id number] 25mg Take 0.5 Univers mg tablet 4-28 tablets by ity of 00:00: mouth [place] 00 every day Medical at 1200 [place] (noon). ipratropium 3-0 Yes [id number] .5mg Inhale 2.5 Univers 0.02 % 4-28 mL every 6 ity of nebulizer 00:00: (six) [place] solution 00 hours as Medical needed for Branch Wheezing or Shortness of Breath. albuterol 3-0 Yes [id number] 2.5mg Inhale 3 Univers 2.5 mg /3 4-28 mL every 8 ity of mL (0.083 00:00: (eight) [place] %) 00 hours as Medical nebulizer needed for Bran ch solution Wheezing or Shortness of Breath. atorvastati 3-0 Yes [id number] 20mg Take 1 Univers n 20 mg 4-28 tablet by ity of tablet 00:00: mouth at [place] 00 bedtime. Medical Branch losartan 50 2022-0 Yes [id number] 25mg Take 0.5 Univers mg tablet 4-28 tablets by ity of 00:00: mouth [place] 00 every day Medical at 1200 [place] (noon). ipratropium 2023-0 Yes [id number] .5mg Inhale 2.5 Univers 0.02 % 4-28 mL every 6 ity of nebulizer 00:00: (six) [place] solution 00 hours as Medical needed for Branch Wheezing or Shortness of Breath. albuterol 3-0 Yes [id number] 2.5mg Inhale 3 Univers 2.5 mg /3 4-28 mL every 8 ity of mL (0.083 00:00: (eight) [place] %) 00 hours as Medical nebulizer needed for Bran ch solution Wheezing or Shortness of Breath. atorvastati 2022-0 Yes [id number] 20mg Take 1 Univers n 20 mg 4-28 tablet by ity of tablet 00:00: mouth at [place] 00 bedtime. Medical Branch losartan 50 2022-0 Yes [id number] 25mg Take 0.5 Univers mg tablet 4-28 tablets by ity of 00:00: mouth [place] 00 every day Medical at 1200 Branch (noon). ipratropium 3-0 Yes [id number] .5mg Inhale 2.5 Univers 0.02 % 4-28 mL every 6 ity of nebulizer 00:00: (six) [place] solution 00 hours as Medical needed for Branch Wheezing or Shortness of Breath. albuterol 2022-0 Yes [id number] 2.5mg Inhale 3 [facility] 2.5 mg /3 4-28 mL every 8 [facility] of mL (0.083 00:00: (eight) [place] %) 00 hours as Medical nebulizer needed for Bran ch solution Wheezing or Shortness of Breath. atorvastati 2022-0 Yes [id number] 20mg Take 1 [facility] n 20 mg 4-28 tablet by it[facility] of tablet 00:00: mouth at [place] 00 bedtime. Medical Branch losartan 50 2022-0 Yes [id number] 25mg Take 0.5 [facility] mg tablet 4-28 tablets by ity of 00:00: mouth [place] 00 every day Medical at [address] [facility] (noon). ipratropium 2023-0 Yes [id number] .5mg Inhale 2.5 [facility] 0.02 % 4-28 mL every 6 ity of nebulizer 00:00: (six) [place] solution 00 hours as Medical needed for Branch Wheezing or Shortness of Breath. albuterol 2023-0 Yes [id number] 2.5mg Inhale 3 [facility] 2.5 mg /3 4-28 mL every 8 it[facility] of mL (0.083 00:00: (eight) [place] %) 00 hours as Medical nebulizer needed for Bran ch solution Wheezing or Shortness of Breath. atorvastati 3-0 Yes [id number] 20mg Take 1 [facility] n 20 mg 4-28 tablet by ity of tablet 00:00: mouth at [place] 00 bedtime. Medical Branch losartan 50 2022-0 Yes [id number] 25mg Take 0.5 [facility] mg tablet 4-28 tablets by ity of 00:00: mouth [place] 00 every day Medical at [address] [place] (noon). ipratropium 2023-0 Yes [id number] .5mg Inhale 2.5 [facility] 0.02 % 4-28 mL every 6 ity of nebulizer 00:00: (six) [place] solution 00 hours as Medical needed for Branch Wheezing or Shortness of Breath. albuterol 2023-0 Yes [id number] 2.5mg Inhale 3 [facility] 2.5 mg /3 4-28 mL every 8 it[facility] of mL (0.083 00:00: (eight) [place] %) 00 hours as Medical nebulizer needed for Bran ch solution Wheezing or Shortness of Breath. atorvastati 2022-0 Yes [id number] 20mg Take 1 [facility] n 20 mg 4-28 tablet by ity of tablet 00:00: mouth at [place] 00 bedtime. Medical Branch losartan 50 2022-0 Yes [id number] 25mg Take 0.5 [facility] mg tablet 4-28 tablets by ity of 00:00: mouth [place] 00 every day Medical at [address] [place] (noon). ipratropium 2023-0 Yes [id number] .5mg Inhale 2.5 [facility] 0.02 % 4-28 mL every 6 ity of nebulizer 00:00: (six) [place] solution 00 hours as Medical needed for Branch Wheezing or Shortness of Breath. albuterol 2023-0 Yes [id number] 2.5mg Inhale 3 [facility] 2.5 mg /3 4-28 mL every 8 it[facility] of mL (0.083 00:00: (eight) [place] %) 00 hours as Medical nebulizer needed for Bran ch solution Wheezing or Shortness of Breath. atorvastati 3-0 Yes [id number] 20mg Take 1 [facility] n 20 mg 4-28 tablet by it[facility] of tablet 00:00: mouth at [place] 00 bedtime. Medical Branch losartan 50 2022-0 Yes [id number] 25mg Take 0.5 [facility] mg tablet 4-28 tablets by ity of 00:00: mouth [place] 00 every day Medical at [address] [place] (noon). ipratropium 2023-0 Yes [id number] .5mg Inhale 2.5 [facility] 0.02 % 4-28 mL every 6 ity of nebulizer 00:00: (six) [place] solution 00 hours as Medical needed for Branch Wheezing or Shortness of Breath. albuterol 2023-0 Yes [id number] 2.5mg Inhale 3 [facility] 2.5 mg /3 4-28 mL every 8 [facility] of mL (0.083 00:00: (eight) [place] %) 00 hours as Medical nebulizer needed for Bran ch solution Wheezing or Shortness of Breath. atorvastati 2022-0 Yes [id number] 20mg Take 1 [facility] n 20 mg 4-28 tablet by ity of tablet 00:00: mouth at [place] 00 bedtime. Medical Branch losartan 50 2022-0 Yes [id number] 25mg Take 0.5 [facility] mg tablet 4-28 tablets by ity of 00:00: mouth [place] 00 every day Medical at [address] [place] (noon). ipratropium 2023-0 Yes [id number] .5mg Inhale 2.5 [facility] 0.02 % 4-28 mL every 6 ity of nebulizer 00:00: (six) [place] solution 00 hours as Medical needed for Branch Wheezing or Shortness of Breath. albuterol 3-0 Yes [id number] 2.5mg Inhale 3 [facility] 2.5 mg /3 4-28 mL every 8 it[facility] of mL (0.083 00:00: (eight) [place] %) 00 hours as Medical nebulizer needed for Bran ch solution Wheezing or Shortness of Breath. atorvastati 2023-0 Yes [id number] 20mg Take 1 [facility] n 20 mg 4-28 tablet by ity of tablet 00:00: mouth at [place] 00 bedtime. Medical Branch losartan 50 2022-0 Yes [id number] 25mg Take 0.5 [facility] mg tablet 4-28 tablets by ity of 00:00: mouth [place] 00 every day Medical at [address] [place] (noon). ipratropium 2023-0 Yes [id number] .5mg Inhale 2.5 [facility] 0.02 % 4-28 mL every 6 ity of nebulizer 00:00: (six) [place] solution 00 hours as Medical needed for Branch Wheezing or Shortness of Breath. albuterol 3-0 Yes [id number] 2.5mg Inhale 3 [facility] 2.5 mg /3 4-28 mL every 8 it[facility] of mL (0.083 00:00: (eight) [place] %) 00 hours as Medical nebulizer needed for Bran ch solution Wheezing or Shortness of Breath. atorvastati 3-0 Yes [id number] 20mg Take 1 [facility] n 20 mg 4-28 tablet by ity of tablet 00:00: mouth at [place] 00 bedtime. Medical Branch losartan 50 2022-0 Yes [id number] 25mg Take 0.5 [facility] mg tablet 4-28 tablets by ity of 00:00: mouth [place] 00 every day Medical at [address] [facility] (noon). ipratropium 2022-0 Yes [id number] .5mg Inhale 2.5 [facility] 0.02 % 4-28 mL every 6 ity of nebulizer 00:00: (six) [place] solution 00 hours as Medical needed for Branch Wheezing or Shortness of Breath. albuterol 2022-0 Yes [id number] 2.5mg Inhale 3 [facility] 2.5 mg /3 4-28 mL every 8 ity of mL (0.083 00:00: (eight) [place] %) 00 hours as Medical nebulizer needed for Bran ch solution Wheezing or Shortness of Breath. furosemide 2022-0 2023- No [id number] 40mg Take 1 [facility] 40 mg 4-28 05-09 tablet by ity of tablet 00:00: 00:00 mouth [place] 00 :00 every Medical morning Branch and evening. furosemide 3-0 Yes 40mg Take 1 [facility] rs 40 mg 4-27 tablet by ity of tablet 00:00: mouth [place] 00 every Medical morning Branch and evening. furosemide 2023-0 Yes 40mg Take 1 [facility] rs 40 mg 4-27 tablet by ity of tablet 00:00: mouth [place] 00 every Medical morning Branch and evening. furosemide 3-0 2023- No 40mg Take 1 [facility] ers 40 mg 4-27 04-28 tablet by ity of tablet 00:00: 00:00 mouth [place] 00 :00 every Medical morning Branch and evening. furosemide 2023-0 2023- No 40mg Take 1 [facility] ers 40 mg 4-09 06-28 tablet by ity of tablet 00:00: 00:00 mouth [place] 00 :00 every Medical morning Branch and evening. furosemide 2023-0 2023- No 40mg Take 1 [facility] ers 40 mg 4-09 06-28 tablet by ity of tablet 00:00: 00:00 mouth [place] 00 :00 every Medical morning Branch and evening. losartan 50 2023-0 Yes 25mg Take 0.5 [facility] mg tablet 4-12 tablets by ity of 00:00: mouth [place] 00 every day Medical at [address] [place] [address] (noon). losartan 50 2023-0 Yes 25mg Take 0.5 [facility] mg tablet 4-12 tablets by ity of 00:00: mouth [place] 00 every day Medical at [address] [place] [address] (noon). losartan 50 2023-0 Yes 25mg Take 0.5 [facility] mg tablet 4-12 tablets by ity of 00:00: mouth [place] 00 every day Medical at [address] [place] [address] (noon). losartan 50 2023-0 Yes 25mg Take 0.5 [facility] mg tablet 4-12 tablets by ity of 00:00: mouth [place] 00 every day Medical at [address] [place] [address] (noon). losartan 50 2023-0 Yes 25mg Take 0.5 [facility] mg tablet 4-12 tablets by ity of 00:00: mouth [place] 00 every day Medical at [address] [place] [address] (noon). losartan 50 2023-0 Yes 25mg Take 0.5 [facility] mg tablet 4-12 tablets by ity of 00:00: mouth [place] 00 every day Medical at [address] [place] [address] (noon). losartan 50 2023-0 Yes 25mg Take 0.5 [facility] mg tablet 4-12 tablets by ity of 00:00: mouth [place] 00 every day Medical at [address] [place] [address] (noon). losartan 50 2023-0 Yes 25mg Take 0.5 [facility] mg tablet 4-12 tablets by ity of 00:00: mouth [place] 00 every day Medical at [address] [place] [address] (noon). losartan 50 2023-0 Yes 25mg Take 0.5 [facility] mg tablet 4-12 tablets by ity of 00:00: mouth [place] 00 every day Medical at [address] [place] [address] (noon). losartan 50 2023-0 Yes 25mg Take 0.5 [facility] mg tablet 4-12 tablets by ity of 00:00: mouth [place] 00 every day Medical at [address] [place] [address] (noon). losartan 50 0 2022- No 25mg Take 0.5 [facility] mg tablet 4-12 -28 tablets by ity of 00:00: 00:00 mouth [place] 00 :00 every day Medical at [address] [place] [address] (noon). losartan 50 0 2022- No 25mg Take 0.5 [facility] nivers mg tablet 4-12 -28 tablets by ity of 00:00: 00:00 mouth [place] 00 :00 every day Medical at [address] [place] [address] (noon). losartan 50 2022-0 2022- No 25mg Take 0.5 [facility] nivers mg tablet 4-12 -28 tablets by ity of 00:00: 00:00 mouth [place] 00 :00 every day Medical at [address] [place] [address] (noon). losartan 50 2022-0 2022- No 50mg Take 1 [facility] vers mg tablet 4-12 -12 tablet by ity of 00:00: 00:00 mouth [place] 00 :00 daily. Medical Branch losartan 50 2022-0 3- No 25mg Take 0.5 [facility] nivers mg tablet 4-12 -12 tablets by ity of 00:00: 00:00 mouth [place] 00 :00 daily. Medical Branch losartan 50 2022-0 2023- No 50mg Take 1 [facility] vers mg tablet 4-12 -12 tablet by ity of 00:00: 00:00 mouth [place] 00 :00 daily. Medical Branch losartan 50 0 3- No 25mg Take 0.5 [facility] nivers mg tablet 4-12 -12 tablets by ity of 00:00: 00:00 mouth [place] 00 :00 daily. Medical Branch furosemide 2022-0 Yes [id number] 40mg Take 1 [facility] 40 mg 4-04 tablet by ity of tablet 00:00: mouth [place] 00 daily. Medical Branch terbinafine 2022-0 Yes [id number] 250mg Take 1 [facility] HCL 250 mg 4-04 tablet by ity of tablet 00:00: mouth [place] 00 daily. Medical Branch benzonatate 2022-0 Yes [id number] 200mg Take 1 [facility] 200 mg 4-04 capsule by ity of capsule 00:00: mouth 3 (three) Medical times Branch daily as needed for Cough. furosemide 2022-0 Yes [id number] 40mg Take 1 [facility] 40 mg 4-04 tablet by ity of tablet 00:00: mouth [place] 00 daily. Medical Branch terbinafine 2022-0 Yes [id number] 250mg Take 1 [facility] HCL 250 mg 4-04 tablet by ity of tablet 00:00: mouth [place] 00 daily. Medical Branch benzonatate 2022-0 Yes [id number] 200mg Take 1 [facility] 200 mg 4-04 capsule by ity of capsule 00:00: mouth 3 (three) Medical times Branch daily as needed for Cough. furosemide 2022-0 Yes [id number] 40mg Take 1 [facility] 40 mg 4-04 tablet by ity of tablet 00:00: mouth [place] 00 daily. Medical Branch terbinafine 2022-0 Yes [id number] 250mg Take 1 [facility] HCL 250 mg 4-04 tablet by ity of tablet 00:00: mouth [place] 00 daily. Medical Branch benzonatate 2022-0 Yes [id number] 200mg Take 1 [facility] 200 mg 4-04 capsule by ity of capsule 00:00: mouth 3 (three) Medical times Branch daily as needed for Cough. furosemide 2022-0 Yes [id number] 40mg Take 1 [facility] 40 mg 4-04 tablet by ity of tablet 00:00: mouth [place] 00 daily. Medical Branch terbinafine 2022-0 Yes [id number] 250mg Take 1 [facility] HCL 250 mg 4-04 tablet by ity of tablet 00:00: mouth [place] 00 daily. Medical Branch benzonatate 2022-0 Yes [id number] 200mg Take 1 [facility] 200 mg 4-04 capsule by ity of capsule 00:00: mouth 3 (three) Medical times Branch daily as needed for Cough. furosemide 2022-0 Yes [id number] 40mg Take 1 [facility] 40 mg 4-04 tablet by ity of tablet 00:00: mouth [place] 00 daily. Medical Branch terbinafine 2022-0 Yes [id number] 250mg Take 1 [facility] HCL 250 mg 4-04 tablet by ity of tablet 00:00: mouth [place] 00 daily. Medical Branch benzonatate 2022-0 Yes [id number] 200mg Take 1 [facility] 200 mg 4-04 capsule by ity of capsule 00:00: mouth 3 [place] 00 (three) Medical times Branch daily as needed for Cough. furosemide 3-0 Yes [id number] 40mg Take 1 [facility] 40 mg 4-04 tablet by ity of tablet 00:00: mouth [place] 00 daily. Medical Branch terbinafine 2022-0 Yes [id number] 250mg Take 1 [facility] HCL 250 mg 4-04 tablet by ity of tablet 00:00: mouth [place] 00 daily. Medical Branch benzonatate 2022-0 Yes [id number] 200mg Take 1 [facility] 200 mg 4-04 capsule by ity of capsule 00:00: mouth 3 (three) Medical times Branch daily as needed for Cough. furosemide 2022-0 Yes [id number] 40mg Take 1 [facility] 40 mg 4-04 tablet by ity of tablet 00:00: mouth [place] 00 daily. Medical Branch terbinafine 2022-0 Yes [id number] 250mg Take 1 [facility] HCL 250 mg 4-04 tablet by ity of tablet 00:00: mouth [place] 00 daily. Medical Branch benzonatate 2022-0 Yes [id number] 200mg Take 1 [facility] 200 mg 4-04 capsule by ity of capsule 00:00: mouth 3 (three) Medical times Branch daily as needed for Cough. furosemide 2022-0 Yes [id number] 40mg Take 1 [facility] 40 mg 4-04 tablet by ity of tablet 00:00: mouth [place] 00 daily. Medical Branch terbinafine 2022-0 Yes [id number] 250mg Take 1 [facility] HCL 250 mg 4-04 tablet by ity of tablet 00:00: mouth [place] 00 daily. Medical Branch benzonatate 2022-0 Yes [id number] 200mg Take 1 [facility] 200 mg 4-04 capsule by ity of capsule 00:00: mouth 3 (three) Medical times Branch daily as needed for Cough. furosemide 2022-0 Yes [id number] 40mg Take 1 [facility] 40 mg 4-04 tablet by ity of tablet 00:00: mouth [place] 00 daily. Medical Branch terbinafine 2022-0 Yes [id number] 250mg Take 1 [facility] HCL 250 mg 4-04 tablet by ity of tablet 00:00: mouth [place] 00 daily. Medical Branch benzonatate 2022-0 Yes [id number] 200mg Take 1 [facility] 200 mg 4-04 capsule by ity of capsule 00:00: mouth 3 (three) Medical times Branch daily as needed for Cough. furosemide 2022-0 Yes [id number] 40mg Take 1 [facility] 40 mg 4-04 tablet by ity of tablet 00:00: mouth [place] 00 daily. Medical Branch terbinafine 2022-0 Yes [id number] 250mg Take 1 [facility] HCL 250 mg 4-04 tablet by ity of tablet 00:00: mouth [place] 00 daily. Medical Branch benzonatate 2022-0 Yes [id number] 200mg Take 1 [facility] 200 mg 4-04 capsule by ity of capsule 00:00: mouth 3 (three) Medical times Branch daily as needed for Cough. terbinafine 2022-0 Yes [id number] 250mg Take 1 [facility] HCL 250 mg 4-04 tablet by ity of tablet 00:00: mouth 00 daily. Medical Branch benzonatate 2022-0 Yes [id number] 200mg Take 1 [facility] 200 mg 4-04 capsule by ity of capsule 00:00: mouth (three) Medical times Branch daily as needed for Cough. terbinafine 2022-0 Yes [id number] 250mg Take 1 [facility] HCL 250 mg 4-04 tablet by ity of tablet 00:00: mouth 00 daily. Medical Branch benzonatate 2022-0 Yes [id number] 200mg Take 1 [facility] 200 mg 4-04 capsule by ity of capsule 00:00: mouth (three) Medical times Branch daily as needed for Cough. terbinafine 2022-0 Yes [id number] 250mg Take 1 [facility] HCL 250 mg 4-04 tablet by ity of tablet 00:00: mouth 00 daily. Medical Branch benzonatate 2022-0 Yes [id number] 200mg Take 1 [facility] 200 mg 4-04 capsule by ity of capsule 00:00: mouth 3 (three) Medical times Branch daily as needed for Cough. terbinafine 3-0 Yes [id number] 250mg Take 1 [facility] HCL 250 mg 4-04 tablet by ity of tablet 00:00: mouth [place] 00 daily. Medical Branch benzonatate 3-0 Yes [id number] 200mg Take 1 [facility] 200 mg 4-04 capsule by ity of capsule 00:00: mouth 3 (three) Medical times Branch daily as needed for Cough. terbinafine 3-0 Yes [id number] 250mg Take 1 [facility] HCL 250 mg 4-04 tablet by ity of tablet 00:00: mouth [place] 00 daily. Medical Branch benzonatate 3-0 Yes [id number] 200mg Take 1 [facility] 200 mg 4-04 capsule by ity of capsule 00:00: mouth 3 (three) Medical times Branch daily as needed for Cough. terbinafine 2023-0 Yes [id number] 250mg Take 1 [facility] HCL 250 mg 4-04 tablet by ity of tablet 00:00: mouth 00 daily. Medical Branch benzonatate 3-0 Yes [id number] 200mg Take 1 [facility] 200 mg 4-04 capsule by ity of capsule 00:00: mouth (three) Medical times Branch daily as needed for Cough. terbinafine 2022-0 Yes [id number] 250mg Take 1 [facility] HCL 250 mg 4-04 tablet by ity of tablet 00:00: mouth 00 daily. Medical Branch benzonatate 3-0 Yes [id number] 200mg Take 1 [facility] 200 mg 4-04 capsule by ity of capsule 00:00: mouth (three) Medical times Branch daily as needed for Cough. terbinafine 2022-0 Yes [id number] 250mg Take 1 [facility] HCL 250 mg 4-04 tablet by ity of tablet 00:00: mouth 00 daily. Medical Branch benzonatate 3-0 Yes [id number] 200mg Take 1 [facility] 200 mg 4-04 capsule by ity of capsule 00:00: mouth (three) Medical times Branch daily as needed for Cough. terbinafine 3-0 Yes [id number] 250mg Take 1 [facility] HCL 250 mg 4-04 tablet by ity of tablet 00:00: mouth [place] 00 daily. Medical Branch benzonatate 3-0 Yes [id number] 200mg Take 1 [facility] 200 mg 4-04 capsule by ity of capsule 00:00: mouth (three) Medical times Branch daily as needed for Cough. terbinafine 2023-0 Yes [id number] 250mg Take 1 [facility] HCL 250 mg 4-04 tablet by ity of tablet 00:00: mouth [place] 00 daily. Medical Branch benzonatate 3-0 Yes [id number] 200mg Take 1 [facility] 200 mg 4-04 capsule by ity of capsule 00:00: mouth 3 (three) Medical times Branch daily as needed for Cough. terbinafine 2023-0 Yes [id number] 250mg Take 1 [facility] HCL 250 mg 4-04 tablet by ity of tablet 00:00: mouth 00 daily. Medical Branch benzonatate 2023-0 Yes [id number] 200mg Take 1 [facility] 200 mg 4-04 capsule by ity of capsule 00:00: mouth (three) Medical times Branch daily as needed for Cough. terbinafine 2023-0 Yes [id number] 250mg Take 1 [facility] HCL 250 mg 4-04 tablet by ity of tablet 00:00: mouth 00 daily. Medical Branch benzonatate 3-0 Yes [id number] 200mg Take 1 [facility] 200 mg 4-04 capsule by ity of capsule 00:00: mouth (three) Medical times Branch daily as needed for Cough. terbinafine 2023-0 Yes [id number] 250mg Take 1 [facility] HCL 250 mg 4-04 tablet by ity of tablet 00:00: mouth 00 daily. Medical Branch benzonatate 3-0 Yes [id number] 200mg Take 1 [facility] 200 mg 4-04 capsule by ity of capsule 00:00: mouth (three) Medical times Branch daily as needed for Cough. terbinafine 2023-0 Yes [id number] 250mg Take 1 [facility] HCL 250 mg 4-04 tablet by ity of tablet 00:00: mouth 00 daily. Medical Branch benzonatate 3-0 Yes [id number] 200mg Take 1 [facility] 200 mg 4-04 capsule by ity of capsule 00:00: mouth (three) Medical times Branch daily as needed for Cough. terbinafine 2023-0 Yes [id number] 250mg Take 1 [facility] HCL 250 mg 4-04 tablet by ity of tablet 00:00: mouth 00 daily. Medical Branch benzonatate 2023-0 Yes [id number] 200mg Take 1 [facility] 200 mg 4-04 capsule by ity of capsule 00:00: mouth (three) Medical times Branch daily as needed for Cough. terbinafine 2023-0 Yes [id number] 250mg Take 1 [facility] HCL 250 mg 4-04 tablet by ity of tablet 00:00: mouth [place] 00 daily. Medical Branch benzonatate 2023-0 Yes [id number] 200mg Take 1 [facility] 200 mg 4-04 capsule by ity of capsule 00:00: mouth 3 (three) Medical times Branch daily as needed for Cough. terbinafine 3-0 Yes [id number] 250mg Take 1 [facility] HCL 250 mg 4-04 tablet by ity of tablet 00:00: mouth [place] 00 daily. Medical Branch benzonatate 3-0 Yes [id number] 200mg Take 1 [facility] 200 mg 4-04 capsule by ity of capsule 00:00: mouth 3 (three) Medical times Branch daily as needed for Cough. terbinafine 3-0 Yes [id number] 250mg Take 1 [facility] HCL 250 mg 4-04 tablet by ity of tablet 00:00: mouth 00 daily. Medical Branch benzonatate 3-0 Yes [id number] 200mg Take 1 [facility] 200 mg 4-04 capsule by ity of capsule 00:00: mouth (three) Medical times Branch daily as needed for Cough. terbinafine 2022-0 Yes [id number] 250mg Take 1 [facility] HCL 250 mg 4-04 tablet by ity of tablet 00:00: mouth 00 daily. Medical Branch benzonatate 3-0 Yes [id number] 200mg Take 1 [facility] 200 mg 4-04 capsule by ity of capsule 00:00: mouth (three) Medical times Branch daily as needed for Cough. terbinafine 3-0 Yes [id number] 250mg Take 1 [facility] HCL 250 mg 4-04 tablet by ity of tablet 00:00: mouth 00 daily. Medical Branch benzonatate 3-0 Yes [id number] 200mg Take 1 [facility] 200 mg 4-04 capsule by ity of capsule 00:00: mouth (three) Medical times Branch daily as needed for Cough. terbinafine 3-0 Yes [id number] 250mg Take 1 [facility] HCL 250 mg 4-04 tablet by ity of tablet 00:00: mouth [place] 00 daily. Medical Branch benzonatate 2023-0 Yes [id number] 200mg Take 1 [facility] 200 mg 4-04 capsule by ity of capsule 00:00: mouth 3 (three) Medical times Branch daily as needed for Cough. terbinafine 2023-0 Yes [id number] 250mg Take 1 [facility] HCL 250 mg 4-04 tablet by ity of tablet 00:00: mouth [place] 00 daily. Medical Branch benzonatate 3-0 Yes [id number] 200mg Take 1 [facility] 200 mg 4-04 capsule by ity of capsule 00:00: mouth 3 (three) Medical times Branch daily as needed for Cough. terbinafine 3-0 Yes [id number] 250mg Take 1 [facility] HCL 250 mg 4-04 tablet by ity of tablet 00:00: mouth [place] 00 daily. Medical Branch benzonatate 3-0 Yes [id number] 200mg Take 1 [facility] 200 mg 4-04 capsule by ity of capsule 00:00: mouth 3 (three) Medical times Branch daily as needed for Cough. terbinafine 2022-0 Yes [id number] 250mg Take 1 [facility] HCL 250 mg 4-04 tablet by ity of tablet 00:00: mouth 00 daily. Medical Branch benzonatate 2022-0 Yes [id number] 200mg Take 1 [facility] 200 mg 4-04 capsule by ity of capsule 00:00: mouth (three) Medical times Branch daily as needed for Cough. terbinafine 2022-0 Yes [id number] 250mg Take 1 [facility] HCL 250 mg 4-04 tablet by ity of tablet 00:00: mouth 00 daily. Medical Branch benzonatate 3-0 Yes [id number] 200mg Take 1 [facility] 200 mg 4-04 capsule by ity of capsule 00:00: mouth (three) Medical times Branch daily as needed for Cough. terbinafine 3-0 Yes [id number] 250mg Take 1 [facility] HCL 250 mg 4-04 tablet by ity of tablet 00:00: mouth [place] 00 daily. Medical Branch benzonatate 3-0 Yes [id number] 200mg Take 1 [facility] 200 mg 4-04 capsule by ity of capsule 00:00: mouth 3 (three) Medical times Branch daily as needed for Cough. terbinafine 2023-0 Yes [id number] 250mg Take 1 [facility] HCL 250 mg 4-04 tablet by ity of tablet 00:00: mouth [place] 00 daily. Medical Branch benzonatate 3-0 Yes [id number] 200mg Take 1 [facility] 200 mg 4-04 capsule by [facility]y of capsule 00:00: mouth 3 [place] 00 (three) Medical times Branch daily as needed for Cough. furosemide No [id number] 40mg Take 1 [facility] 40 mg -05 17- tablet by [facility] of tablet 00:00: 00:00 mouth [place] 00 :00 daily. Medical Branch furosemide 2022- No [id number] 40mg Take 1 [facility] 40 mg -05 17- tablet by [facility] of tablet 00:00: 00:00 mouth [place] 00 :00 daily. Medical Branch furosemide 2022- No TAKE 1 [facility] ers 40 mg 05-09- TABLET BY ity of tablet 00:00: 00:00 MOUTH [place] 00 :00 TWICE Medical DAILY FOR Branch 5 DAYS THEN ONE TABLET DAILY furosemide 2022- No TAKE 1 [facility] ers 40 mg 05-09- TABLET BY ity of tablet 00:00: 00:00 MOUTH [place] 00 :00 TWICE Medical DAILY FOR Branch 5 DAYS THEN ONE TABLET DAILY losartan 25 Yes [id number] 25mg Take 1 [facility] mg tablet 3-13 tablet by ity o f 00:00: mouth [place] 00 daily. Medical Branch losartan 25 Yes [id number] 25mg Take 1 [facility] mg tablet 3-13 tablet by ity o f 00:00: mouth [place] 00 daily. Medical Branch losartan 25 Yes [id number] 25mg Take 1 [facility] mg tablet 3-13 tablet by ity o f 00:00: mouth [place] 00 daily. Medical Branch losartan 25 Yes [id number] 25mg Take 1 [facility] mg tablet 3-13 tablet by ity o f 00:00: mouth [place] 00 daily. Medical Branch losartan 25 Yes [id number] 25mg Take 1 [facility] mg tablet 3-13 tablet by ity o f 00:00: mouth [place] 00 daily. Medical Branch losartan 25 2022- No [id number] 25mg Take 1 [facility] mg tablet 3-13 -12 tablet by ity of 00:00: 00:00 mouth [place] 00 :00 daily. Medical Branch losartan 25 2022- No [id number] 25mg Take 1 [facility] mg tablet 3-13 -12 tablet by ity of 00:00: 00:00 mouth [place] 00 :00 daily. Medical Branch cefUROXime 0 Yes [id number] 250mg Take 1 [facility] 250 mg 2-14 tablet by [facility] of tablet 00:00: mouth [place] (two) Medical times Branch daily. cefUROXime 2023-0 Yes [id number] 250mg Take 1 [facility] 250 mg 2-14 tablet by ity of tablet 00:00: mouth [place] (two) Medical times Branch daily. cefUROXime 2023-0 Yes [id number] 250mg Take 1 [facility] 250 mg 2-14 tablet by it[facility] of tablet 00:00: mouth [place] (two) Medical times Branch daily. cefUROXime 2023-0 Yes [id number] 250mg Take 1 [facility] 250 mg 2-14 tablet by it[facility] of tablet 00:00: mouth [place] (two) Medical times Branch daily. cefUROXime 2023-0 Yes [id number] 250mg Take 1 [facility] 250 mg 2-14 tablet by ity of tablet 00:00: mouth [place] (two) Medical times Branch daily. cefUROXime 2023-0 Yes [id number] 250mg Take 1 [facility] 250 mg 2-14 tablet by ity of tablet 00:00: mouth [place] (two) Medical times Branch daily. cefUROXime 2023-0 Yes [id number] 250mg Take 1 [facility] 250 mg 2-14 tablet by ity of tablet 00:00: mouth [place] (two) Medical times Branch daily. cefUROXime 2023-0 Yes [id number] 250mg Take 1 [facility] 250 mg 2-14 tablet by ity of tablet 00:00: mouth [place] (two) Medical times Branch daily. cefUROXime 2023-0 2023- No [id number] 250mg Take 1 [facility] 250 mg 2-14 04-04 tablet by ity of tablet 00:00: 00:00 [facility] 2 [place] 00 :00 (two) Medical times Branch daily. cefUROXime 2023-0 2023- No [id number] 250mg Take 1 [facility] 250 mg 2-14 04-04 tablet by ity of tablet 00:00: 00:00 mouth 2 [place] 00 :00 (two) Medical times Branch daily. carvedilol 2023-0 2023- No 12.5mg Take 12.5 [facility] ([facility]) 2-10 02-[address] [place] 12.5 MG 10:59: 00:00 mouth of tablet 05 :00 daily. Medicin e furosemide 2023-0 Yes 20mg Take 20 mg [facility] [place] (LASIX) 20 2-10 by mouth [place] MG tablet 10:34: daily. of 03 Medicin e losartan 2022-0 Yes 25mg Take 25 mg [place] [facility] (COZAAR) 25 2-10 by mouth Kristine ege MG tablet 10:34: two times of 03 daily. Medicin e carvedilol 2022-0 Yes 6.25mg Take 6.25 [facility] ([facility]) 2-[address] [place] 6.25 MG 10:34: mouth of tablet 03 daily. Medicin e famotidine 0 3- No 20mg Take 1 [place] (PEPCID) 20 2-10 05-12 [facility]t [facility] tablet 00:00: 04:59 mouth two of 00 :00 times Medicin daily for e 90 days. cefdinir 2022-0 Yes [id number] 300mg Take 1 Un [place]ana 300 mg 2-09 capsule by [facility] of capsule 00:00: mouth [place] 00 every 12 Medical (twelve) Branch hours. cefdinir 2022-0 Yes [id number] 300mg Take 1 Un [place] 300 mg 2-09 capsule by [facility] of capsule 00:00: mouth [place] 00 every 12 Medical (twelve) Branch hours. ferrous 2022-0 Yes [id number] 324mg Take 1 Un briana sulfate 324 1-31 tablet by ity of mg (65 mg 00:00: mouth [place] iron) EC 00 daily with Medic al tablet breakfast. Branch ferrous 2022-0 Yes [id number] 324mg Take 1 Un briana sulfate 324 1-31 tablet by ity of mg (65 mg 00:00: mouth [place] iron) EC 00 daily with Medic al tablet breakfast. Branch ferrous 2022-0 Yes [id number] 324mg Take 1 Un briana sulfate 324 1-31 tablet by ity of mg (65 mg 00:00: mouth [place] iron) EC 00 daily with Medic al tablet breakfast. Branch ferrous 2022-0 Yes [id number] 324mg Take 1 Un briana sulfate 324 1-31 tablet by ity of mg (65 mg 00:00: mouth [place] iron) EC 00 daily with Medic al tablet breakfast. Branch ferrous 2022-0 Yes [id number] 324mg Take 1 Un [place] sulfate 324 1-31 tablet by ity of mg (65 mg 00:00: mouth [place] iron) EC 00 daily with Medic al tablet breakfast. Branch ferrous 3-0 Yes [id number] 324mg Take 1 Un bri[place] sulfate 324 1-31 tablet by ity of mg (65 mg 00:00: mouth [place] iron) EC 00 daily with Medic al tablet breakfast. Branch ferrous 3-0 Yes [id number] 324mg Take 1 Un [place] sulfate 324 1-31 tablet by ity of mg (65 mg 00:00: mouth [place] iron) EC 00 daily with Medic al tablet breakfast. Branch ferrous 3-0 Yes [id number] 324mg Take 1 Un briana sulfate 324 1-31 tablet by ity of mg (65 mg 00:00: mouth [place] iron) EC 00 daily with Medic al tablet breakfast. Branch ferrous 3-0 Yes [id number] 324mg Take 1 Un briana sulfate 324 1-31 tablet by ity of mg (65 mg 00:00: mouth [place] iron) EC 00 daily with Medic al tablet breakfast. Branch ferrous 2022-0 Yes [id number] 324mg Take 1 Un [place] sulfate 324 1-31 tablet by ity of mg (65 mg 00:00: mouth [place] iron) EC 00 daily with Medic al tablet breakfast. Branch ferrous 2022-0 Yes [id number] 324mg Take 1 Un [place] sulfate 324 1-31 tablet by ity of mg (65 mg 00:00: mouth [place] iron) EC 00 daily with Medic al tablet breakfast. Branch ferrous 3-0 Yes [id number] 324mg Take 1 Un [place] sulfate 324 1-31 tablet by ity of mg (65 mg 00:00: mouth [place] iron) EC 00 daily with Medic al tablet breakfast. Branch ferrous 3-0 Yes [id number] 324mg Take 1 Un briana sulfate 324 1-31 tablet by ity of mg (65 mg 00:00: mouth [place] iron) EC 00 daily with Medic al tablet breakfast. Branch ferrous 3-0 Yes [id number] 324mg Take 1 Un [place] sulfate 324 1-31 tablet by ity of mg (65 mg 00:00: mouth [place] iron) EC 00 daily with Medic al tablet breakfast. Branch ferrous 3-0 Yes [id number] 324mg Take 1 Un [place] sulfate 324 1-31 tablet by ity of mg (65 mg 00:00: mouth [place] iron) EC 00 daily with Medic al tablet breakfast. Branch ferrous 2022-0 Yes [id number] 324mg Take 1 Un briana sulfate 324 1-31 tablet by ity of mg (65 mg 00:00: mouth [place] iron) EC 00 daily with Medic al tablet breakfast. Branch ferrous 3-0 Yes [id number] 324mg Take 1 Un briana sulfate 324 1-31 tablet by ity of mg (65 mg 00:00: mouth [place] iron) EC 00 daily with Medic al tablet breakfast. Branch ferrous 2022-0 Yes [id number] 324mg Take 1 Un [place] sulfate 324 1-31 tablet by ity of mg (65 mg 00:00: mouth [place] iron) EC 00 daily with Medic al tablet breakfast. Branch ferrous 2022-0 Yes [id number] 324mg Take 1 Un briana sulfate 324 1-31 tablet by ity of mg (65 mg 00:00: mouth [place] iron) EC 00 daily with Medic al tablet breakfast. Branch ferrous 2022-0 Yes [id number] 324mg Take 1 Un briana sulfate 324 1-31 tablet by ity of mg (65 mg 00:00: mouth [place] iron) EC 00 daily with Medic al tablet breakfast. Branch ferrous 2022-0 Yes [id number] 324mg Take 1 Un briana sulfate 324 1-31 tablet by ity of mg (65 mg 00:00: mouth [place] iron) EC 00 daily with Medic al tablet breakfast. Branch ferrous 2022-0 Yes [id number] 324mg Take 1 Un [place]ana sulfate 324 1-31 tablet by ity of mg (65 mg 00:00: mouth [place] iron) EC 00 daily with Medic al tablet breakfast. Branch ferrous 2022-0 Yes [id number] 324mg Take 1 Un briana sulfate 324 1-31 tablet by ity of mg (65 mg 00:00: mouth [place] iron) EC 00 daily with Medic al tablet breakfast. Branch ferrous 3-0 Yes [id number] 324mg Take 1 Un briana sulfate 324 1-31 tablet by ity of mg (65 mg 00:00: mouth [place] iron) EC 00 daily with Medic al tablet breakfast. Branch ferrous 3-0 Yes [id number] 324mg Take 1 Un briana sulfate 324 1-31 tablet by ity of mg (65 mg 00:00: mouth [place] iron) EC 00 daily with Medic al tablet breakfast. Branch ferrous 3-0 Yes [id number] 324mg Take 1 Un briana sulfate 324 1-31 tablet by ity of mg (65 mg 00:00: mouth [place] iron) EC 00 daily with Medic al tablet breakfast. Branch ferrous 3-0 Yes [id number] 324mg Take 1 Un briana sulfate 324 1-31 tablet by ity of mg (65 mg 00:00: mouth [place] iron) EC 00 daily with Medic al tablet breakfast. Branch ferrous 3-0 Yes [id number] 324mg Take 1 Un briana sulfate 324 1-31 tablet by ity of mg (65 mg 00:00: mouth [place] iron) EC 00 daily with Medic al tablet breakfast. Branch ferrous 2022-0 Yes [id number] 324mg Take 1 Un briana sulfate 324 1-31 tablet by ity of mg (65 mg 00:00: mouth [place] iron) EC 00 daily with Medic al tablet breakfast. Branch ferrous 3-0 Yes [id number] 324mg Take 1 Un briana sulfate 324 1-31 tablet by ity of mg (65 mg 00:00: mouth [place] iron) EC 00 daily with Medic al tablet breakfast. Branch ferrous 2022-0 Yes [id number] 324mg Take 1 Un briana sulfate 324 1-31 tablet by ity of mg (65 mg 00:00: mouth [place] iron) EC 00 daily with Medic al tablet breakfast. Branch ferrous 2022-0 Yes [id number] 324mg Take 1 Un briana sulfate 324 1-31 tablet by ity of mg (65 mg 00:00: mouth [place] iron) EC 00 daily with Medic al tablet breakfast. Branch ferrous 3-0 Yes [id number] 324mg Take 1 Un briana sulfate 324 1-31 tablet by ity of mg (65 mg 00:00: mouth [place] iron) EC 00 daily with Medic al tablet breakfast. Branch ferrous 3-0 Yes [id number] 324mg Take 1 Un [place] sulfate 324 1-31 tablet by ity of mg (65 mg 00:00: mouth [place] iron) EC 00 daily with Medic al tablet breakfast. Branch ferrous 3-0 Yes [id number] 324mg Take 1 Un briana sulfate 324 1-31 tablet by ity of mg (65 mg 00:00: mouth [place] iron) EC 00 daily with Medic al tablet breakfast. Branch ferrous 3-0 Yes [id number] 324mg Take 1 Un [place]ana sulfate 324 1-31 tablet by ity of mg (65 mg 00:00: mouth [place] iron) EC 00 daily with Medic al tablet breakfast. Branch ferrous 3-0 Yes [id number] 324mg Take 1 Un briana sulfate 324 1-31 tablet by ity of mg (65 mg 00:00: mouth [place] iron) EC 00 daily with Medic al tablet breakfast. Branch ferrous 3-0 Yes [id number] 324mg Take 1 Un [place] sulfate 324 1-31 tablet by ity of mg (65 mg 00:00: mouth [place] iron) EC 00 daily with Medic al tablet breakfast. Branch ferrous 3-0 Yes [id number] 324mg Take 1 Un [place] sulfate 324 1-31 tablet by ity of mg (65 mg 00:00: mouth [place] iron) EC 00 daily with Medic al tablet breakfast. Branch ferrous 3-0 Yes [id number] 324mg Take 1 Un [place] sulfate 324 1-31 tablet by ity of mg (65 mg 00:00: mouth [place] iron) EC 00 daily with Medic al tablet breakfast. Branch ferrous 3-0 Yes [id number] 324mg Take 1 Un [place] sulfate 324 1-31 tablet by ity of mg (65 mg 00:00: mouth [place] iron) EC 00 daily with Medic al tablet breakfast. Branch ferrous 3-0 Yes [id number] 324mg Take 1 Un briana sulfate 324 1-31 tablet by ity of mg (65 mg 00:00: mouth [place] iron) EC 00 daily with Medic al tablet breakfast. Branch ferrous 3-0 Yes [id number] 324mg Take 1 Un [place] sulfate 324 1-31 tablet by ity of mg (65 mg 00:00: mouth [place] iron) EC 00 daily with Medic al tablet breakfast. Branch ferrous 3-0 Yes [id number] 324mg Take 1 Un [place] sulfate 324 1-31 tablet by ity of mg (65 mg 00:00: mouth [place] iron) EC 00 daily with Medic al tablet breakfast. Branch ferrous 3-0 Yes [id number] 324mg Take 1 Un bri[place] sulfate 324 1-31 tablet by ity of mg (65 mg 00:00: mouth [place] iron) EC 00 daily with Medic al tablet breakfast. Branch ferrous 3-0 Yes [id number] 324mg Take 1 Un briana sulfate 324 1-31 tablet by ity of mg (65 mg 00:00: mouth [place] iron) EC 00 daily with Medic al tablet breakfast. Branch ferrous 2022-0 Yes [id number] 324mg Take 1 Un briana sulfate 324 1-31 tablet by ity of mg (65 mg 00:00: mouth [place] iron) EC 00 daily with Medic al tablet breakfast. Branch ferrous 3-0 Yes [id number] 324mg Take 1 Un [place] sulfate 324 1-31 tablet by ity of mg (65 mg 00:00: mouth [place] iron) EC 00 daily with Medic al tablet breakfast. Branch ferrous 2022-0 Yes [id number] 324mg Take 1 Un briana sulfate 324 1-31 tablet by ity of mg (65 mg 00:00: mouth [place] iron) EC 00 daily with Medic al tablet breakfast. Branch losartan 50 2022-0 Yes [id number] 50mg Take 1 [facility] mg tablet 1-27 tablet by ity o f 00:00: mouth [place] 00 daily. Medical Branch furosemide 2022-0 Yes [id number] 20mg Take 1 U nivers 20 mg 1-27 tablet by ity of tablet 00:00: mouth [place] 00 daily. Medical Branch losartan 50 2022-0 Yes [id number] 50mg Take 1 [facility] mg tablet 1-27 tablet by ity o f 00:00: mouth [place] 00 daily. Medical Branch furosemide 2022-0 Yes [id number] 20mg Take 1 U nivers 20 mg 1-27 tablet by ity of tablet 00:00: mouth [place] 00 daily. Medical Branch losartan 50 2022-0 Yes [id number] 50mg Take 1 [facility] mg tablet 1-27 tablet by ity o f 00:00: mouth [place] 00 daily. Medical Branch furosemide 2022-0 Yes [id number] 20mg Take 1 U nivers 20 mg 1-27 tablet by ity of tablet 00:00: mouth [place] 00 daily. Medical Branch losartan 50 2022-0 Yes [id number] 50mg Take 1 [facility] mg tablet 1-27 tablet by ity o f 00:00: mouth [place] 00 daily. Medical Branch furosemide 2022-0 Yes [id number] 20mg Take 1 U nivers 20 mg 1-27 tablet by ity of tablet 00:00: mouth [place] 00 daily. Medical Branch losartan 50 2022-0 Yes [id number] 50mg Take 1 [facility] mg tablet 1-27 tablet by ity o f 00:00: mouth [place] 00 daily. Medical Branch furosemide 2023-0 Yes [id number] 20mg Take 1 U nivers 20 mg 1-27 tablet by ity of tablet 00:00: mouth [place] 00 daily. Medical Branch losartan 50 2022-0 Yes [id number] 50mg Take 1 [facility] mg tablet 1-27 tablet by ity o f 00:00: mouth [place] 00 daily. Medical Branch furosemide 2023-0 Yes [id number] 20mg Take 1 U nivers 20 mg 1-27 tablet by ity of tablet 00:00: mouth [place] 00 daily. Medical Branch losartan 50 2022-0 Yes [id number] 50mg Take 1 [facility] mg tablet 1-27 tablet by ity o f 00:00: mouth [place] 00 daily. Medical Branch furosemide 2023-0 Yes [id number] 20mg Take 1 U nivers 20 mg 1-27 tablet by ity of tablet 00:00: mouth [place] 00 daily. Medical Branch losartan 50 2022-0 Yes [id number] 50mg Take 1 [facility] mg tablet 1-27 tablet by ity o f 00:00: mouth [place] 00 daily. Medical Branch furosemide 3-0 Yes [id number] 20mg Take 1 U nivers 20 mg 1-27 tablet by ity of tablet 00:00: mouth [place] 00 daily. Medical Branch losartan 50 2022-0 Yes [id number] 50mg Take 1 [facility] mg tablet 1-27 tablet by ity o f 00:00: mouth [place] 00 daily. Medical Branch furosemide 3-0 Yes [id number] 20mg Take 1 U nivers 20 mg 1-27 tablet by ity of tablet 00:00: mouth [place] 00 daily. Medical Branch losartan 50 2022-0 Yes [id number] 50mg Take 1 [facility] mg tablet 1-27 tablet by ity o f 00:00: mouth [place] 00 daily. Medical Branch furosemide 2023-0 Yes [id number] 20mg Take 1 U nivers 20 mg 1-27 tablet by ity of tablet 00:00: mouth [place] 00 daily. Medical Branch losartan 50 3-0 Yes [id number] 50mg Take 1 [facility] mg tablet 1-27 tablet by ity o f 00:00: mouth [place] 00 daily. Medical Branch furosemide 2023-0 Yes [id number] 20mg Take 1 U nivers 20 mg 1-27 tablet by ity of tablet 00:00: mouth [place] 00 daily. Medical Branch losartan 50 2022-0 Yes [id number] 50mg Take 1 [facility] mg tablet 1-27 tablet by ity o f 00:00: mouth [place] 00 daily. Medical Branch furosemide 2022-0 Yes [id number] 20mg Take 1 U nivers 20 mg 1-27 tablet by ity of tablet 00:00: mouth [place] 00 daily. Medical Branch losartan 50 2022-0 Yes [id number] 50mg Take 1 [facility] mg tablet 1-27 tablet by ity o f 00:00: mouth [place] 00 daily. Medical Branch furosemide 2022-0 Yes [id number] 20mg Take 1 U nivers 20 mg 1-27 tablet by ity of tablet 00:00: mouth [place] 00 daily. Medical Branch losartan 50 2022-0 Yes [id number] 50mg Take 1 [facility] mg tablet 1-27 tablet by ity o f 00:00: mouth [place] 00 daily. Medical Branch furosemide 2022-0 Yes [id number] 20mg Take 1 U nivers 20 mg 1-27 tablet by ity of tablet 00:00: mouth [place] 00 daily. Medical Branch losartan 50 2022-0 Yes [id number] 50mg Take 1 [facility] mg tablet 1-27 tablet by ity o f 00:00: mouth [place] 00 daily. Medical Branch furosemide 2022-0 Yes [id number] 20mg Take 1 U nivers 20 mg 1-27 tablet by ity of tablet 00:00: mouth [place] 00 daily. Medical Branch losartan 50 2022-0 Yes [id number] 50mg Take 1 [facility] mg tablet 1-27 tablet by ity o f 00:00: mouth [place] 00 daily. Medical Branch furosemide 2022-0 Yes [id number] 20mg Take 1 U nivers 20 mg 1-27 tablet by ity of tablet 00:00: mouth [place] 00 daily. Medical Branch furosemide 2022-0 Yes [id number] 20mg Take 1 [facility] nivers 20 mg 1-27 tablet by ity of tablet 00:00: mouth [place] 00 daily. Medical Branch furosemide 3-0 Yes [id number] 20mg Take 1 [facility] nivers 20 mg 1-27 tablet by ity of tablet 00:00: mouth [place] 00 daily. Medical Branch furosemide 3-0 Yes [id number] 20mg Take 1 U nivers 20 mg 1-27 tablet by ity of tablet 00:00: mouth [place] 00 daily. Medical Branch furosemide 2023-0 2023- No [id number] 20mg Take 1 [facility] 20 mg 1-27 04- tablet by ity of tablet 00:00: 00:00 mouth [place] 00 :00 daily. Medical Branch furosemide 2022-0 2022- No [id number] 20mg Take 1 [facility] 20 mg 03-11- tablet by ity of tablet 00:00: 00:00 mouth [place] 00 :00 daily. Medical Branch losartan 50 2022- No [id number] 50mg Take 1 [facility] mg tablet 03-11-13 tablet by ity of 00:00: 00:00 mouth [place] 00 :00 daily. Medical Branch carvediloL 2021-02 Yes [id number] 6.25mg Take 1 [facility] 6.25 mg 2-09 tablet by ity of tablet 00:00: mouth 2 00 (two) Medical times Branch daily with meals. atorvastati 2021-02 Yes [id number] 20mg Take 1 [facility] n 20 mg 2-09 tablet by ity of tablet 00:00: mouth at [place] 00 bedtime. Medical Branch omeprazole 2021-02 Yes [id number] 1{tbl} Take 1 [facility] 20 mg TbLD 2-09 tablet by ity of 00:00: mouth [place] 00 daily. Medical Branch tolterodine 2021-02 Yes [id number] 2mg Take 1 [facility] [place] 2 mg 24 2-09 capsule by ity of hr capsule 00:00: mouth [place] 00 daily. Medical Branch carvediloL 2021-02 Yes [id number] 6.25mg Take 1 [facility] 6.25 mg 2-09 tablet by ity of tablet 00:00: mouth 2 [place] 00 (two) Medical times Branch daily with meals. atorvastati 2021-02 Yes [id number] 20mg Take 1 [facility] n 20 mg 2-09 tablet by ity of tablet 00:00: mouth at [place] 00 bedtime. Medical Branch omeprazole 2021-02 Yes [id number] 1{tbl} Take 1 [facility] 20 mg TbLD 2-09 tablet by ity of 00:00: mouth [place] 00 daily. Medical Branch tolterodine 2021-02 Yes [id number] 2mg Take 1 [facility] [place] 2 mg 24 2-09 capsule by ity of hr capsule 00:00: mouth [place] 00 daily. Medical Branch carvediloL 2021-02 Yes [id number] 6.25mg Take 1 [facility] 6.25 mg 2-09 tablet by ity of tablet 00:00: mouth 2 (two) Medical times Branch daily with meals. atorvastati 2021-02 Yes [id number] 20mg Take 1 [facility] n 20 mg 2-09 tablet by ity of tablet 00:00: mouth at [place] 00 bedtime. Medical Branch omeprazole 2021-02 Yes [id number] 1{tbl} Take 1 [facility] 20 mg TbLD 2-09 tablet by ity of 00:00: mouth [place] 00 daily. Medical Branch tolterodine 2021-02 Yes [id number] 2mg Take 1 [facility] [place] 2 mg 24 2-09 capsule by ity of hr capsule 00:00: mouth [place] 00 daily. Medical Branch carvediloL 2021-02 Yes [id number] 6.25mg Take 1 [facility] 6.25 mg 2-09 tablet by ity of tablet 00:00: mouth 2 (two) Medical times Branch daily with meals. atorvastati 2021-02 Yes [id number] 20mg Take 1 [facility] n 20 mg 2-09 tablet by ity of tablet 00:00: mouth at [place] 00 bedtime. Medical Branch omeprazole 2021-02 Yes [id number] 1{tbl} Take 1 [facility] 20 mg TbLD 2-09 tablet by ity of 00:00: mouth [place] 00 daily. Medical Branch tolterodine 2021-02 Yes [id number] 2mg Take 1 [facility] [place] 2 mg 24 2-09 capsule by ity of hr capsule 00:00: mouth [place] 00 daily. Medical Branch carvediloL 2021-02 Yes [id number] 6.25mg Take 1 [facility] 6.25 mg 2-09 tablet by ity of tablet 00:00: mouth 2 (two) Medical times Branch daily with meals. atorvastati 2021-02 Yes [id number] 20mg Take 1 [facility] n 20 mg 2-09 tablet by ity of tablet 00:00: mouth at [place] 00 bedtime. Medical Branch omeprazole 2021-02 Yes [id number] 1{tbl} Take 1 [facility] 20 mg TbLD 2-09 tablet by ity of 00:00: mouth [place] 00 daily. Medical Branch tolterodine 2021-02 Yes [id number] 2mg Take 1 [facility] [place] 2 mg 24 2-09 capsule by ity of hr capsule 00:00: mouth [place] 00 daily. Medical Branch carvediloL 2021-02 Yes [id number] 6.25mg Take 1 [facility] 6.25 mg 2-09 tablet by ity of tablet 00:00: mouth 2 (two) Medical times Branch daily with meals. atorvastati 2021-02 Yes [id number] 20mg Take 1 [facility] n 20 mg 2-09 tablet by ity of tablet 00:00: mouth at [place] 00 bedtime. Medical Branch omeprazole 2021-02 Yes [id number] 1{tbl} Take 1 [facility] 20 mg TbLD 2-09 tablet by ity of 00:00: mouth [place] 00 daily. Medical Branch tolterodine 2021-02 Yes [id number] 2mg Take 1 [facility] [place] 2 mg 24 2-09 capsule by ity of hr capsule 00:00: mouth [place] 00 daily. Medical Branch carvediloL 2021-02 Yes [id number] 6.25mg Take 1 [facility] 6.25 mg 2-09 tablet by ity of tablet 00:00: mouth 2 (two) Medical times Branch daily with meals. atorvastati 2021-02 Yes [id number] 20mg Take 1 [facility] n 20 mg 2-09 tablet by ity of tablet 00:00: mouth at [place] 00 bedtime. Medical Branch omeprazole 2021-02 Yes [id number] 1{tbl} Take 1 [facility] 20 mg TbLD 2-09 tablet by ity of 00:00: mouth [place] 00 daily. Medical Branch tolterodine 2021-02 Yes [id number] 2mg Take 1 [facility] [place] 2 mg 24 2-09 capsule by ity of hr capsule 00:00: mouth [place] 00 daily. Medical Branch carvediloL 2021-02 Yes [id number] 6.25mg Take 1 [facility] 6.25 mg 2-09 tablet by ity of tablet 00:00: mouth 2 00 (two) Medical times Branch daily with meals. atorvastati 2021-02 Yes [id number] 20mg Take 1 [facility] n 20 mg 2-09 tablet by ity of tablet 00:00: mouth at [place] 00 bedtime. Medical Branch omeprazole 2021-02 Yes [id number] 1{tbl} Take 1 [facility] 20 mg TbLD 2-09 tablet by ity of 00:00: mouth [place] 00 daily. Medical Branch tolterodine 2021-02 Yes [id number] 2mg Take 1 [facility] [place] 2 mg 24 2-09 capsule by it[facility] of hr capsule 00:00: mouth [place] 00 daily. Medical Branch carvediloL 2021-02 Yes [id number] 6.25mg Take 1 [facility] 6.25 mg 2-09 tablet by ity of tablet 00:00: mouth 2 (two) Medical times Branch daily with meals. atorvastati 2021-02 Yes [id number] 20mg Take 1 [facility] n 20 mg 2-09 tablet by ity of tablet 00:00: mouth at [place] 00 bedtime. Medical Branch omeprazole 2021-02 Yes [id number] 1{tbl} Take 1 [facility] 20 mg TbLD 2-09 tablet by ity of 00:00: mouth [place] 00 daily. Medical Branch tolterodine 2021-02 Yes [id number] 2mg Take 1 [facility] [place] 2 mg 24 2-09 capsule by ity of hr capsule 00:00: mouth [place] 00 daily. Medical Branch carvediloL 2021-02 Yes [id number] 6.25mg Take 1 [facility] 6.25 mg 2-09 tablet by ity of tablet 00:00: mouth (two) Medical times Branch daily with meals. atorvastati 2021-02 Yes [id number] 20mg Take 1 [facility] n 20 mg 2-09 tablet by ity of tablet 00:00: mouth at [place] 00 bedtime. Medical Branch omeprazole 2021-02 Yes [id number] 1{tbl} Take 1 [facility] 20 mg TbLD 2-09 tablet by ity of 00:00: mouth [place] 00 daily. Medical Branch tolterodine 2021-02 Yes [id number] 2mg Take 1 [facility] [place] 2 mg 24 2-09 capsule by [facility] of hr capsule 00:00: mouth [place] 00 daily. Medical Branch carvediloL 2021-02 Yes [id number] 6.25mg Take 1 [facility] 6.25 mg 2-09 tablet by ity of tablet 00:00: mouth 2 (two) Medical times Branch daily with meals. atorvastati 2021-02 Yes [id number] 20mg Take 1 [facility] n 20 mg 2-09 tablet by ity of tablet 00:00: mouth at [place] 00 bedtime. Medical Branch omeprazole 2021-02 Yes [id number] 1{tbl} Take 1 [facility] 20 mg TbLD 2-09 tablet by ity of 00:00: mouth [place] 00 daily. Medical Branch tolterodine 2021-02 Yes [id number] 2mg Take 1 [facility] [place] 2 mg 24 2-09 capsule by [facility] of hr capsule 00:00: mouth [place] 00 daily. Medical Branch carvediloL 2021-02 Yes [id number] 6.25mg Take 1 [facility] 6.25 mg 2-09 tablet by ity of tablet 00:00: mouth 2 00 (two) Medical times Branch daily with meals. atorvastati 2021-02 Yes [id number] 20mg Take 1 [facility] n 20 mg 2-09 tablet by ity of tablet 00:00: mouth at [place] 00 bedtime. Medical Branch omeprazole 2021-02 Yes [id number] 1{tbl} Take 1 [facility] 20 mg TbLD 2-09 tablet by ity of 00:00: mouth [place] 00 daily. Medical Branch tolterodine 2021-02 Yes [id number] 2mg Take 1 [facility] [place] 2 mg 24 2-09 capsule by [facility] of hr capsule 00:00: mouth [place] 00 daily. Medical Branch carvediloL 2021-02 Yes [id number] 6.25mg Take 1 [facility] 6.25 mg 2-09 tablet by [facility] of tablet 00:00: mouth 2 (two) Medical times Branch daily with meals. atorvastati 2021-02 Yes [id number] 20mg Take 1 [facility] n 20 mg 2-09 tablet by [facility] of tablet 00:00: mouth at [place] 00 bedtime. Medical Branch omeprazole 2021-02 Yes [id number] 1{tbl} Take 1 [facility] 20 mg TbLD 2-09 tablet by ity of 00:00: mouth [place] 00 daily. Medical Branch tolterodine 2021-02 Yes [id number] 2mg Take 1 [facility] [place] 2 mg 24 2-09 capsule by [facility] of hr capsule 00:00: mouth [place] 00 daily. [facility] Branch carvediloL 2021-02 Yes [id number] 6.25mg Take 1 [facility] 6.25 mg 2-09 tablet by it[facility] of tablet 00:00: mouth 2 00 (two) Medical times Branch daily with meals. atorvastati 2021-02 Yes [id number] 20mg Take 1 [facility] n 20 mg 2-09 tablet by ity of tablet 00:00: mouth at [place] 00 bedtime. Medical Branch omeprazole 2021-02 Yes [id number] 1{tbl} Take 1 [facility] 20 mg TbLD 2-09 tablet by ity of 00:00: mouth [place] 00 daily. Medical Branch tolterodine 2021-02 Yes [id number] 2mg Take 1 [facility] [place] 2 mg 24 2-09 capsule by [facility] of hr capsule 00:00: mouth [place] 00 daily. [facility] Branch carvediloL 2021-02 Yes [id number] 6.25mg Take 1 [facility] 6.25 mg 2-09 tablet by ity of tablet 00:00: mouth 2 (two) Medical times Branch daily with meals. atorvastati 2021-02 Yes [id number] 20mg Take 1 [facility] n 20 mg 2-09 tablet by ity of tablet 00:00: mouth at [place] 00 bedtime. Medical Branch omeprazole 2021-02 Yes [id number] 1{tbl} Take 1 [facility] 20 mg TbLD 2-09 tablet by ity of 00:00: mouth [place] 00 daily. Medical Branch tolterodine 2021-02 Yes [id number] 2mg Take 1 [facility] [place] 2 mg 24 2-09 capsule by [facility] of hr capsule 00:00: mouth [place] 00 daily. Medical Branch carvediloL 2021-02 Yes [id number] 6.25mg Take 1 [facility] 6.25 mg 2-09 tablet by [facility]y of tablet 00:00: mouth (two) Medical times Branch daily with meals. atorvastati 2021-02 Yes [id number] 20mg Take 1 [facility] n 20 mg 2-09 tablet by ity of tablet 00:00: mouth at [place] 00 bedtime. Medical Branch omeprazole 2021-02 Yes [id number] 1{tbl} Take 1 [facility] 20 mg TbLD 2-09 tablet by ity of 00:00: mouth [place] 00 daily. Medical Branch tolterodine 2021-02 Yes [id number] 2mg Take 1 [facility] [place] 2 mg 24 2-09 capsule by [facility] of hr capsule 00:00: mouth [place] 00 daily. [facility] Branch carvediloL 2021-02 Yes [id number] 6.25mg Take 1 [facility] 6.25 mg 2-09 tablet by ity of tablet 00:00: mouth 2 00 (two) Medical times Branch daily with meals. atorvastati 2021-02 Yes [id number] 20mg Take 1 [facility] n 20 mg 2-09 tablet by [facility] of tablet 00:00: mouth at [place] 00 bedtime. [facility] Branch omeprazole 2021-02 Yes [id number] 1{tbl} Take 1 [facility] 20 mg TbLD 2-09 tablet by ity of 00:00: mouth [place] 00 daily. Medical Branch tolterodine 2021-02 Yes [id number] 2mg Take 1 [facility] [place] 2 mg 24 2-09 capsule by [facility] of hr capsule 00:00: mouth [place] 00 daily. [facility] Branch carvediloL 2021-02 Yes [id number] 6.25mg Take 1 [facility] 6.25 mg 2-09 tablet by [facility] tablet 00:00: mouth 2 00 (two) [facility] times [facility] daily with meals. atorvastati 2021-02 Yes [id number] 20mg Take 1 [facility] n 20 mg 2-09 tablet by [facility] tablet 00:00: mouth at [place] 00 bedtime. [facility] tolterodine 2021-02 Yes [id number] 2mg Take 1 [facility] [place] 2 mg 24 2-09 capsule by [facility] capsule 00:00: mouth [place] 00 daily. [facility] carvediloL 2021-02 Yes [id number] 6.25mg Take 1 [facility] 6.25 mg 2-09 tablet by [facility] tablet 00:00: mouth 2 00 (two) [facility] times [facility] daily with meals. atorvastati 2021-02 Yes [id number] 20mg Take 1 [facility] n 20 mg 2-09 tablet by [facility] tablet 00:00: mouth at [place] 00 bedtime. [facility] tolterodine 2021-02 Yes [id number] 2mg Take 1 [facility] [place] 2 mg 24 2-09 capsule by [facility] capsule 00:00: mouth [place] 00 daily. [facility] carvediloL 2021-02 Yes [id number] 6.25mg Take 1 [facility] 6.25 mg 2-09 tablet by [facility] tablet 00:00: mouth 2 00 (two) [facility] times [facility] daily with meals. atorvastati 2021-02 Yes [id number] 20mg Take 1 [facility] n 20 mg 2-09 tablet by [facility] tablet 00:00: mouth at [place] 00 bedtime. [facility] tolterodine 2021-02 Yes [id number] 2mg Take 1 [facility] [place] 2 mg 24 2-09 capsule by [facility] capsule 00:00: mouth [place] 00 daily. [facility] carvediloL 2021-02 Yes [id number] 6.25mg Take 1 [facility] 6.25 mg 2-09 tablet by [facility] tablet 00:00: mouth 2 (two) [facility] times [facility] daily with meals. atorvastati 2021-02 Yes [id number] 20mg Take 1 [facility] n 20 mg 2-09 tablet by [facility] tablet 00:00: mouth at [place] 00 bedtime. [facility] tolterodine 2021-02 Yes [id number] 2mg Take 1 [facility] [place] 2 mg 24 2-09 capsule by [facility] capsule 00:00: mouth [place] 00 daily. [facility] carvediloL 2021-02 Yes [id number] 6.25mg Take 1 [facility] 6.25 mg 2-09 tablet by [facility] tablet 00:00: mouth 2 (two) [facility] times [facility] daily with meals. atorvastati 2021-02 Yes [id number] 20mg Take 1 [facility] n 20 mg 2-09 tablet by [facility] tablet 00:00: mouth at [place] 00 bedtime. [facility] tolterodine 2021-02 Yes [id number] 2mg Take 1 [facility] [place] 2 mg 24 2-09 capsule by [facility] capsule 00:00: mouth 00 daily. [facility] carvediloL 2021-02 Yes [id number] 6.25mg Take 1 [facility] 6.25 mg 2-09 tablet by [facility] tablet 00:00: mouth 2 (two) [facility] times [facility] daily with meals. atorvastati 2021-02 Yes [id number] 20mg Take 1 [facility] n 20 mg 2-09 tablet by [facility] tablet 00:00: mouth at [place] 00 bedtime. [facility] tolterodine 2021-02 Yes [id number] 2mg Take 1 [facility] [place] 2 mg 24 2-09 capsule by [facility] capsule 00:00: mouth 00 daily. [facility] carvediloL 2021-02 Yes [id number] 6.25mg Take 1 [facility] 6.25 mg 2-09 tablet by [facility] tablet 00:00: mouth 2 (two) [facility] times [facility] daily with meals. atorvastati 2021-02 Yes [id number] 20mg Take 1 [facility] n 20 mg 2-09 tablet by [facility] tablet 00:00: mouth at [place] 00 bedtime. [facility] tolterodine 2022-1 Yes [id number] 2mg Take 1 [facility] [place] 2 mg 24 2-09 capsule by [facility] capsule 00:00: mouth [place] 00 daily. [facility] carvediloL 2021-02 Yes [id number] 6.25mg Take 1 [facility] 6.25 mg 2-09 tablet by [facility] tablet 00:00: mouth 2 (two) [facility] times [facility] daily with meals. atorvastati 2021-02 Yes [id number] 20mg Take 1 [facility] n 20 mg 2-09 tablet by [facility] tablet 00:00: mouth at [place] 00 bedtime. [facility] tolterodine 2021-02 Yes [id number] 2mg Take 1 [facility] [place] 2 mg 24 2-09 capsule by [facility] capsule 00:00: mouth [place] 00 daily. [facility] carvediloL 2021-02 Yes [id number] 6.25mg Take 1 [facility] 6.25 mg 2-09 tablet by [facility] tablet 00:00: mouth 2 00 (two) [facility] times [facility] daily with meals. atorvastati 2021-02 Yes [id number] 20mg Take 1 [facility] n 20 mg 2-09 tablet by [facility] tablet 00:00: mouth at [place] 00 bedtime. [facility] tolterodine 2021-02 Yes [id number] 2mg Take 1 [facility] [place] 2 mg 24 2-09 capsule by [facility] capsule 00:00: mouth [place] 00 daily. [facility] carvediloL 2021-02 Yes [id number] 6.25mg Take 1 [facility] 6.25 mg 2-09 tablet by [facility] tablet 00:00: mouth 2 (two) [facility] times [facility] daily with meals. atorvastati 2021-02 Yes [id number] 20mg Take 1 [facility] n 20 mg 2-09 tablet by [facility] tablet 00:00: mouth at [place] 00 bedtime. [facility] tolterodine 2021-02 Yes [id number] 2mg Take 1 [facility] [place] 2 mg 24 2-09 capsule by [facility] capsule 00:00: mouth [place] 00 daily. [facility] carvediloL 2021-02 Yes [id number] 6.25mg Take 1 [facility] 6.25 mg 2-09 tablet by [facility] tablet 00:00: mouth 2 00 (two) [facility] times [facility] daily with meals. atorvastati 2021-02 Yes [id number] 20mg Take 1 [facility] n 20 mg 2-09 tablet by [facility] tablet 00:00: mouth at [place] 00 bedtime. [facility] tolterodine 2021-02 Yes [id number] 2mg Take 1 [facility] [place] 2 mg 24 2-09 capsule by [facility] capsule 00:00: mouth 00 daily. [facility] carvediloL 2021-02 Yes [id number] 6.25mg Take 1 [facility] 6.25 mg 2-09 tablet by [facility] tablet 00:00: mouth 2 (two) [facility] times [facility] daily with meals. atorvastati 2021-02 Yes [id number] 20mg Take 1 [facility] n 20 mg 2-09 tablet by [facility] tablet 00:00: mouth at [place] 00 bedtime. [facility] tolterodine 2021-02 Yes [id number] 2mg Take 1 [facility] [place] 2 mg 24 2-09 capsule by [facility] capsule 00:00: mouth 00 daily. [facility] carvediloL 2021-02 Yes [id number] 6.25mg Take 1 [facility] 6.25 mg 2-09 tablet by [facility] tablet 00:00: mouth 2 (two) [facility] times [facility] daily with meals. atorvastati 2021-02 Yes [id number] 20mg Take 1 [facility] n 20 mg 2-09 tablet by [facility] tablet 00:00: mouth at [place] 00 bedtime. [facility] tolterodine 2021-02 Yes [id number] 2mg Take 1 [facility] [place] 2 mg 24 2-09 capsule by [facility] capsule 00:00: mouth 00 daily. [facility] carvediloL 2021-02 Yes [id number] 6.25mg Take 1 [facility] 6.25 mg 2-09 tablet by [facility] tablet 00:00: mouth 2 (two) [facility] times [facility] daily with meals. atorvastati 2021-02 Yes [id number] 20mg Take 1 [facility] n 20 mg 2-09 tablet by [facility] tablet 00:00: mouth at [place] 00 bedtime. [facility] tolterodine 2021-02 Yes [id number] 2mg Take 1 [facility] [place] 2 mg 24 2-09 capsule by [facility] capsule 00:00: mouth 00 daily. [facility] carvediloL 2021-02 Yes [id number] 6.25mg Take 1 [facility] 6.25 mg 2-09 tablet by [facility] tablet 00:00: mouth 2 (two) [facility] times [facility] daily with meals. atorvastati 2021-02 Yes [id number] 20mg Take 1 [facility] n 20 mg 2-09 tablet by [facility] tablet 00:00: mouth at [place] 00 bedtime. [facility] tolterodine 2021-02 Yes [id number] 2mg Take 1 [facility] [place] 2 mg 24 2-09 capsule by [facility] capsule 00:00: mouth 00 daily. [facility] carvediloL 2021-02 Yes [id number] 6.25mg Take 1 [facility] 6.25 mg 2-09 tablet by [facility] tablet 00:00: mouth 2 00 (two) [facility] times [facility] daily with meals. atorvastati 2021-02 Yes [id number] 20mg Take 1 [facility] n 20 mg 2-09 tablet by [facility] tablet 00:00: mouth at [place] 00 bedtime. [facility] tolterodine 2021-02 Yes [id number] 2mg Take 1 [facility] [place] 2 mg 24 2-09 capsule by [facility] capsule 00:00: mouth 00 daily. [facility] carvediloL 2021-02 Yes [id number] 6.25mg Take 1 [facility] 6.25 mg 2-09 tablet by [facility] tablet 00:00: mouth 2 (two) [facility] times [facility] daily with meals. atorvastati 2021-02 Yes [id number] 20mg Take 1 [facility] n 20 mg 2-09 tablet by [facility] tablet 00:00: mouth at [place] 00 bedtime. [facility] tolterodine 2021-02 Yes [id number] 2mg Take 1 [facility] [place] 2 mg 24 2-09 capsule by [facility] capsule 00:00: mouth 00 daily. [facility] carvediloL 2021-02 Yes [id number] 6.25mg Take 1 [facility] 6.25 mg 2-09 tablet by [facility] tablet 00:00: mouth 2 (two) [facility] times [facility] daily with meals. atorvastati 2021-02 Yes [id number] 20mg Take 1 [facility] n 20 mg 2-09 tablet by [facility] tablet 00:00: mouth at [place] 00 bedtime. [facility] tolterodine 2021-02 Yes [id number] 2mg Take 1 [facility] [place] 2 mg 24 2-09 capsule by [facility] capsule 00:00: mouth 00 daily. [facility] carvediloL 2021-02 Yes [id number] 6.25mg Take 1 [facility] 6.25 mg 2-09 tablet by [facility] tablet 00:00: mouth 2 (two) [facility] times [facility] daily with meals. atorvastati 2021-02 Yes [id number] 20mg Take 1 [facility] n 20 mg 2-09 tablet by [facility] tablet 00:00: mouth at [place] 00 bedtime. [facility] tolterodine 2021-02 Yes [id number] 2mg Take 1 [facility] [place] 2 mg 24 2-09 capsule by [facility] capsule 00:00: mouth [place] 00 daily. [facility] carvediloL 2021-02 Yes [id number] 6.25mg Take 1 [facility] 6.25 mg 2-09 tablet by [facility] tablet 00:00: mouth 2 (two) [facility] times [facility] daily with meals. atorvastati 2021-02 Yes [id number] 20mg Take 1 [facility] n 20 mg 2-09 tablet by [facility] tablet 00:00: mouth at [place] 00 bedtime. [facility] tolterodine 2021-02 Yes [id number] 2mg Take 1 [facility] [place] 2 mg 24 2-09 capsule by [facility] capsule 00:00: mouth [place] 00 daily. [facility] carvediloL 2021-02 Yes [id number] 6.25mg Take 1 [facility] 6.25 mg 2-09 tablet by [facility] tablet 00:00: mouth 2 (two) [facility] times [facility] daily with meals. tolterodine 2021-02 Yes [id number] 2mg Take 1 [facility] [place] 2 mg 24 2-09 capsule by [facility] capsule 00:00: mouth [place] 00 daily. [facility] carvediloL 2021-02 Yes [id number] 6.25mg Take 1 [facility] 6.25 mg 2-09 tablet by [facility] tablet 00:00: mouth 2 (two) [facility] times [facility] daily with meals. tolterodine 2021-02 Yes [id number] 2mg Take 1 [facility] 2 mg 24 2-09 capsule by [facility] hr capsule 00:00: mouth [place] 00 daily. [facility] carvediloL 2021-02 Yes [id number] 6.25mg Take 1 [facility] 6.25 mg 2-09 tablet by [facility] tablet 00:00: mouth 2 (two) [facility] times [facility] daily with meals. tolterodine 2021-02 Yes [id number] 2mg Take 1 [facility] [place] 2 mg 24 2-09 capsule by [facility] hr capsule 00:00: mouth [place] 00 daily. [facility] carvediloL 2021-02 Yes [id number] 6.25mg Take 1 [facility] 6.25 mg 2-09 tablet by [facility] tablet 00:00: mouth 2 (two) [facility] times [facility] daily with meals. tolterodine 2021-02 Yes [id number] 2mg Take 1 [facility] [place] 2 mg 24 2-09 capsule by [facility] hr capsule 00:00: mouth [place] 00 daily. [facility] carvediloL 2021-02 Yes [id number] 6.25mg Take 1 [facility] 6.25 mg 2-09 tablet by [facility] tablet 00:00: mouth (two) [facility] times [facility] daily with meals. tolterodine 2021-02 Yes [id number] 2mg Take 1 [facility] [place] 2 mg 24 2-09 capsule by [facility] hr capsule 00:00: mouth [place] 00 daily. [facility] carvediloL 2021-02 Yes [id number] 6.25mg Take 1 [facility] 6.25 mg 2-09 tablet by [facility] tablet 00:00: mouth (two) [facility] times [facility] daily with meals. tolterodine 2021-02 Yes [id number] 2mg Take 1 [facility] [place] 2 mg 24 2-09 capsule by [facility] hr capsule 00:00: mouth [place] 00 daily. [facility] carvediloL 2021-02 Yes [id number] 6.25mg Take 1 [facility] 6.25 mg 2-09 tablet by [facility] tablet 00:00: mouth (two) [facility] times [facility] daily with meals. tolterodine 2021-02 Yes [id number] 2mg Take 1 [facility] [place] 2 mg 24 2-09 capsule by [facility] hr capsule 00:00: mouth [place] 00 daily. [facility] carvediloL 2021-02 Yes [id number] 6.25mg Take 1 [facility] 6.25 mg 2-09 tablet by [facility] tablet 00:00: mouth 2 00 (two) [facility] times [facility] daily with meals. tolterodine 2021-02 Yes [id number] 2mg Take 1 [facility] 2 mg 24 2-09 capsule by [facility] hr capsule 00:00: mouth [place] 00 daily. [facility] carvediloL 2021-02 Yes [id number] 6.25mg Take 1 [facility] 6.25 mg 2-09 tablet by [facility] tablet 00:00: mouth 2 (two) [facility] times [facility] daily with meals. tolterodine 2021-02 Yes [id number] 2mg Take 1 [facility] 2 mg 24 2-09 capsule by [facility] hr capsule 00:00: mouth [place] 00 daily. [facility] carvediloL 2021-02 Yes [id number] 6.25mg Take 1 [facility] 6.25 mg 2-09 tablet by [facility] tablet 00:00: mouth (two) [facility] times [facility] daily with meals. tolterodine 2021-02 Yes [id number] 2mg Take 1 [facility] 2 mg 24 2-09 capsule by [facility] hr capsule 00:00: mouth [place] 00 daily. [facility] carvediloL 2021-02 Yes [id number] 6.25mg Take 1 [facility] 6.25 mg 2-09 tablet by [facility] tablet 00:00: mouth (two) [facility] times [facility] daily with meals. tolterodine 2021-02 Yes [id number] 2mg Take 1 [facility] 2 mg 24 2-09 capsule by [facility] hr capsule 00:00: mouth 00 daily. [facility] carvediloL 2021-02 Yes [id number] 6.25mg Take 1 [facility] 6.25 mg 2-09 tablet by [facility] tablet 00:00: mouth (two) [facility] times [facility] daily with meals. tolterodine 2021-02 Yes [id number] 2mg Take 1 [facility] 2 mg 24 2-09 capsule by [facility] hr capsule 00:00: mouth 00 daily. [facility] carvediloL 2021-02 Yes [id number] 6.25mg Take 1 [facility] 6.25 mg 2-09 tablet by [facility] tablet 00:00: mouth 2 (two) [facility] times [facility] daily with meals. tolterodine 2021-02 Yes [id number] 2mg Take 1 [facility] 2 mg 24 2-09 capsule by [facility] hr capsule 00:00: mouth [place] 00 daily. [facility] carvediloL 2021-02 Yes [id number] 6.25mg Take 1 [facility] 6.25 mg 2-09 tablet by [facility] tablet 00:00: mouth 2 (two) [facility] times [facility] daily with meals. tolterodine 2021-02 Yes [id number] 2mg Take 1 [facility] 2 mg 24 2-09 capsule by [facility] hr capsule 00:00: mouth [place] 00 daily. [facility] carvediloL 2021-02 Yes [id number] 6.25mg Take 1 [facility] 6.25 mg 2-09 tablet by [facility] tablet 00:00: mouth 2 (two) [facility] times [facility] daily with meals. tolterodine 2021-02 Yes [id number] 2mg Take 1 [facility] 2 mg 24 2-09 capsule by [facility] hr capsule 00:00: mouth [place] 00 daily. [facility] carvediloL 2021-02 Yes [id number] 6.25mg Take 1 [facility] 6.25 mg 2-09 tablet by [facility] tablet 00:00: mouth (two) [facility] times [facility] daily with meals. tolterodine 2021-02 Yes [id number] 2mg Take 1 [facility] 2 mg 24 2-09 capsule by [facility] hr capsule 00:00: mouth [place] 00 daily. [facility] carvediloL 2021-02 Yes [id number] 6.25mg Take 1 [facility] 6.25 mg 2-09 tablet by [facility] tablet 00:00: mouth (two) [facility] times [facility] daily with meals. tolterodine 2021-02 Yes [id number] 2mg Take 1 [facility] 2 mg 24 2-09 capsule by [facility] hr capsule 00:00: mouth [place] 00 daily. [facility] carvediloL 2021-02 Yes [id number] 6.25mg Take 1 [facility] 6.25 mg 2-09 tablet by [facility] tablet 00:00: mouth (two) [facility] times [facility] daily with meals. tolterodine 2021-02 Yes [id number] 2mg Take 1 [facility] 2 mg 24 2-09 capsule by [facility] hr capsule 00:00: mouth [place] 00 daily. [facility] carvediloL 2021-02 Yes [id number] 6.25mg Take 1 [facility] 6.25 mg 2-09 tablet by [facility] tablet 00:00: mouth 2 00 (two) [facility] times [facility] daily with meals. tolterodine 2021-02 Yes [id number] 2mg Take 1 [facility] 2 mg 24 2-09 capsule by [facility] hr capsule 00:00: mouth [place] 00 daily. [facility] carvediloL 2021-02 Yes [id number] 6.25mg Take 1 [facility] 6.25 mg 2-09 tablet by [facility] tablet 00:00: mouth (two) [facility] times [facility] daily with meals. tolterodine 2021-02 Yes [id number] 2mg Take 1 [facility] 2 mg 24 2-09 capsule by [facility] hr capsule 00:00: mouth [place] 00 daily. [facility] carvediloL 2021-02 Yes [id number] 6.25mg Take 1 [facility] 6.25 mg 2-09 tablet by [facility] tablet 00:00: mouth (two) [facility] times [facility] daily with meals. tolterodine 2021-02 Yes [id number] 2mg Take 1 [facility] 2 mg 24 2-09 capsule by [facility] hr capsule 00:00: mouth 00 daily. [facility] carvediloL 2021-02 Yes [id number] 6.25mg Take 1 [facility] 6.25 mg 2-09 tablet by [facility] tablet 00:00: mouth (two) [facility] times [facility] daily with meals. tolterodine 2021-02 Yes [id number] 2mg Take 1 [facility] 2 mg 24 2-09 capsule by [facility] hr capsule 00:00: mouth 00 daily. [facility] carvediloL 2021-02 Yes [id number] 6.25mg Take 1 [facility] 6.25 mg 2-09 tablet by [facility] tablet 00:00: mouth (two) [facility] times [facility] daily with meals. tolterodine 2021-02 Yes [id number] 2mg Take 1 [facility] 2 mg 24 2-09 capsule by [facility] hr capsule 00:00: mouth 00 daily. [facility] carvediloL 2021-02 Yes [id number] 6.25mg Take 1 [facility] 6.25 mg 2-09 tablet by [facility] tablet 00:00: mouth 2 (two) [facility] times [facility] daily with meals. tolterodine 2021-02 Yes [id number] 2mg Take 1 [facility] 2 mg 24 2-09 capsule by [facility] hr capsule 00:00: mouth [place] 00 daily. [facility] carvediloL 2021-02 Yes [id number] 6.25mg Take 1 [facility] 6.25 mg 2-09 tablet by [facility] tablet 00:00: mouth 2 (two) [facility] times [facility] daily with meals. tolterodine 2021-02 Yes [id number] 2mg Take 1 [facility] 2 mg 24 03-24 capsule by [facility] hr capsule 00:00: mouth [place] 00 daily. [facility] atorvastati 2021-02- No [id number] 20mg Take 1 [facility] n 20 mg 03-24 tablet by [facility] tablet 00:00: 00:00 mouth at [place] 00 :00 bedtime. [facility] atorvastati 2021-02- No [id number] 20mg Take 1 [facility] n 20 mg 03-24 tablet by [facility] tablet 00:00: 00:00 mouth at [place] 00 :00 bedtime. [facility] atorvastati 2021-02- No [id number] 20mg Take 1 [facility] n 20 mg 03-24 tablet by [facility] tablet 00:00: 00:00 mouth at [place] 00 :00 bedtime. [facility] carvediloL 2021-02 Yes [id number] 12.5mg Take 1 [facility] 12.5 mg -11 tablet by [facility] tablet 00:00: mouth 2 [place] (two) [facility] times [facility] daily with meals. Additional refills per cardio carvediloL 2021-02 Yes [id number] 12.5mg Take 1 [facility] 12.5 mg 1-11 tablet by [facility] tablet 00:00: mouth 2 [place] (two) [facility] times [facility] daily with meals. Additional refills per cardio carvediloL 2021-02- No [id number] 12.5mg Take 1 [facility] 12.5 mg 1-11 - tablet by [facility] tablet 00:00: 00:00 mouth 2 [place] 00 :00 (two) [facility] times [facility] daily with meals. Additional refills per cardio carvediloL 2021-02- No [id number] 12.5mg Take 1 [facility] 12.5 mg 1-11 -09 tablet by [facility] tablet 00:00: 00:00 mouth 2 [place] 00 :00 (two) [facility] times [facility] daily [...] ity o f tablet 14:33: 00:00 daily. [place] 53 :00 [facility] spironolact 2021-02- No 25mg Take 25 mg [facility] one 25 mg 0-21 10-21 by mouth ity o f tablet 14:33: 00:00 daily. [place] 53 :00 [facility] benzonatate 2021-02 Yes [id number] 200mg Take 1 [facility] 200 mg 0-21 capsule by [facility] of capsule 00:00: mouth 3 [place] [address] (three) Medical times [place] daily as needed for Cough. atorvastati 2021-02 Yes [id number] 40mg Take 1 [facility] n 40 mg 0-21 tablet by [facility] of tablet 00:00: mouth at [place] 00 bedtime. [facility] losartan 25 2021-02 Yes [id number] 25mg Take 1 [facility] mg tablet 0-21 tablet by [facility]y o f 00:00: mouth at [place] 00 bedtime. [facility] furosemide 2021-02 Yes [id number] 20mg Take 1 [facility] 20 mg 0-21 tablet by [facility] of tablet 00:00: mouth [place] 00 daily. [facility] spironolact 2021-02 Yes [id number] 25mg Take 1 [facility] one 25 mg 0-21 tablet by [facility] o f tablet 00:00: mouth [place] 00 daily. [facility] benzonatate 2021-02 Yes [id number] 200mg Take 1 [facility] 200 mg 0-21 capsule by [facility] of capsule 00:00: mouth 3 [place] 00 (three) [facility] times [facility] daily as needed for Cough. atorvastati 2021-02 Yes [id number] 40mg Take 1 [facility] n 40 mg 0-21 tablet by [facility] of tablet 00:00: mouth at [place] 00 bedtime. [facility] losartan 25 2021-02 Yes [id number] 25mg Take 1 [facility] mg tablet 0-21 tablet by [facility] o f 00:00: mouth at [place] 00 bedtime. [facility] furosemide 2021-02 Yes [id number] 20mg Take 1 [facility] n[facility] 20 mg 0-21 tablet by [facility] of tablet 00:00: mouth [place] 00 daily. [facility] spironolact 2021-02 Yes [id number] 25mg Take 1 [facility] one 25 mg 0-21 tablet by [facility] o f tablet 00:00: mouth [place] 00 daily. [facility] benzonatate 2021-02 Yes [id number] 200mg Take 1 [facility] 200 mg 0-21 capsule by [facility] of capsule 00:00: mouth 3 00 (three) [facility] times [facility] daily as needed for Cough. atorvastati 2021-02 Yes [id number] 40mg Take 1 [facility] n 40 mg 0-21 tablet by [facility] of tablet 00:00: mouth at [place] 00 bedtime. [facility] losartan 25 2021-02 Yes [id number] 25mg Take 1 [facility] mg tablet 0-21 tablet by [facility] o f 00:00: mouth at [place] 00 bedtime. [facility] furosemide 2021-02 Yes [id number] 20mg Take 1 [facility] 20 mg 0-21 tablet by [facility] of tablet 00:00: mouth [place] 00 daily. [facility] spironolact 2021-02 Yes [id number] 25mg Take 1 [facility] one 25 mg 0-21 tablet by [facility] o f tablet 00:00: mouth [place] 00 daily. [facility] benzonatate 2021-02 Yes [id number] 200mg Take 1 [facility] 200 mg 0-21 capsule by [facility] of capsule 00:00: mouth 3 [place] 00 (three) [facility] times [facility] daily as needed for Cough. atorvastati 2021-02 Yes [id number] 40mg Take 1 [facility] n 40 mg 0-21 tablet by [facility] of tablet 00:00: mouth at [place] 00 bedtime. [facility] losartan 25 2021-02 Yes [id number] 25mg Take 1 [facility] mg tablet 0-21 tablet by [facility] o f 00:00: mouth at [place] 00 bedtime. [facility] furosemide 2021-02 Yes [id number] 20mg Take 1 [facility] nivers 20 mg 0-21 tablet by [facility] of tablet 00:00: mouth [place] 00 daily. [facility] spironolact 2021-02 Yes [id number] 25mg Take 1 [facility] one 25 mg 0-21 tablet by [facility] o f tablet 00:00: mouth [place] 00 daily. [facility] benzonatate 2021-02 Yes [id number] 200mg Take 1 [facility] 200 mg 0-21 capsule by [facility] of capsule 00:00: mouth 3 [place] 00 (three) [facility] times [facility] daily as needed for Cough. atorvastati 2021-02 Yes [id number] 40mg Take 1 [facility] n 40 mg 0-21 tablet by [facility] of tablet 00:00: mouth at [place] 00 bedtime. [facility] losartan 25 2021-02 Yes [id number] 25mg Take 1 [facility] mg tablet 0-21 tablet by [facility] o f 00:00: mouth at [place] 00 bedtime. [facility] furosemide 2021-02 Yes [id number] 20mg Take 1 [facility] n[facility] 20 mg 0-21 tablet by [facility] of tablet 00:00: mouth [place] 00 daily. [facility] spironolact 2021-02 Yes [id number] 25mg Take 1 [facility] one 25 mg 0-21 tablet by [facility] o f tablet 00:00: mouth [place] 00 daily. [facility] benzonatate 2021-02 Yes [id number] 200mg Take 1 [facility] 200 mg 0-21 capsule by [facility] of capsule 00:00: mouth 3 00 (three) [facility] times [facility] daily as needed for Cough. atorvastati 2021-02 Yes [id number] 40mg Take 1 [facility] n 40 mg 0-21 tablet by [facility] of tablet 00:00: mouth at [place] 00 bedtime. [facility] losartan 25 2021-02 Yes [id number] 25mg Take 1 [facility] mg tablet 0-21 tablet by [facility]y o f 00:00: mouth at [place] 00 bedtime. [facility] furosemide 2021-02 Yes [id number] 20mg Take 1 [facility] 20 mg 0-21 tablet by [facility] of tablet 00:00: mouth [place] 00 daily. [facility] spironolact 2021-02 Yes [id number] 25mg Take 1 [facility] one 25 mg 0-21 tablet by [facility] o f tablet 00:00: mouth [place] 00 daily. [facility] losartan 25 2021-02 Yes [id number] 25mg Take 1 [facility] mg tablet 0-21 tablet by [facility]y o f 00:00: mouth at [place] 00 bedtime. [facility] furosemide 2021-02 Yes [id number] 20mg Take 1 [facility] 20 mg 0-21 tablet by [facility] of tablet 00:00: mouth [place] 00 daily. [facility] spironolact 2021-02 Yes [id number] 25mg Take 1 [facility] one 25 mg 0-21 tablet by [facility] o f tablet 00:00: mouth [place] 00 daily. [facility] losartan 25 2021-02 Yes [id number] 25mg Take 1 [facility] mg tablet 0-21 tablet by ity o f 00:00: mouth at [place] 00 bedtime. [facility] furosemide 2021-02 Yes [id number] 20mg Take 1 [facility] n[facility] 20 mg 0-21 tablet by [facility] of tablet 00:00: mouth [place] 00 daily. [facility] spironolact 2021-02 Yes [id number] 25mg Take 1 [facility] one 25 mg 0-21 tablet by [facility] o f tablet 00:00: mouth [place] 00 daily. [facility] losartan 25 2021-02 Yes [id number] 25mg Take 1 [facility] mg tablet 0-21 tablet by [facility]y o f 00:00: mouth at [place] 00 bedtime. [facility] furosemide 2021-02 Yes [id number] 20mg Take 1 [facility] nivers 20 mg 0-21 tablet by [facility] of tablet 00:00: mouth [place] 00 daily. [facility] spironolact 2021-02 Yes [id number] 25mg Take 1 [facility] one 25 mg 0-21 tablet by [facility] o f tablet 00:00: mouth [place] 00 daily. [facility] losartan 25 2021-02 Yes [id number] 25mg Take 1 [facility] mg tablet 0-21 tablet by [facility]y o f 00:00: mouth at [place] 00 bedtime. [facility] furosemide 2021-02 Yes [id number] 20mg Take 1 [facility] 20 mg 0-21 tablet by [facility] of tablet 00:00: mouth [place] 00 daily. [facility] spironolact 2021-02 Yes [id number] 25mg Take 1 [facility] one 25 mg 0-21 tablet by [facility] o f tablet 00:00: mouth [place] 00 daily. [facility] spironolact 2021-02 Yes [id number] 25mg Take 1 [facility] one 25 mg 0-21 tablet by [facility] o f tablet 00:00: mouth [place] 00 daily. [facility] spironolact 2021-02 Yes [id number] 25mg Take 1 [facility] one 25 mg 0-21 tablet by [facility] o f tablet 00:00: mouth [place] 00 daily. [facility] spironolact 2021-02 Yes [id number] 25mg Take 1 [facility] one 25 mg 0-21 tablet by [facility] o f tablet 00:00: mouth [place] 00 daily. [facility] spironolact 2021-02 Yes [id number] 25mg Take 1 [facility] one 25 mg 0-21 tablet by [facility] o f tablet 00:00: mouth [place] 00 daily. [facility] spironolact 2021-02 Yes [id number] 25mg Take 1 [facility] one 25 mg 0-21 tablet by [facility]y o f tablet 00:00: mouth [place] 00 daily. [facility] spironolact 2021-02 Yes [id number] 25mg Take 1 [facility] one 25 mg 0-21 tablet by [facility] o f tablet 00:00: mouth [place] 00 daily. [facility] spironolact 2021-02 Yes [id number] 25mg Take 1 [facility] 25 mg 0-21 tablet by [facility] o f tablet 00:00: mouth [place] 00 daily. [facility] spironolact 2021-02 Yes [id number] 25mg Take 1 [facility] one 25 mg 0-21 tablet by it[facility] o f tablet 00:00: mouth [place] 00 daily. [facility] spironolact 2021-02 Yes [id number] 25mg Take 1 [facility] one 25 mg 0-21 tablet by ity o f tablet 00:00: mouth [place] 00 daily. [facility] spironolact 2021-02 Yes [id number] 25mg Take 1 [facility] one 25 mg 0-21 tablet by ity o f tablet 00:00: mouth [place] 00 daily. [facility] spironolact 2021-02 Yes [id number] 25mg Take 1 [facility] one 25 mg 0-21 tablet by ity o f tablet 00:00: mouth [place] 00 daily. [facility] spironolact 2021-02 Yes [id number] 25mg Take 1 [facility] one 25 mg 0-21 tablet by ity o f tablet 00:00: mouth [place] 00 daily. [facility] spironolact 2021-02 Yes [id number] 25mg Take 1 [facility] one 25 mg 0-21 tablet by ity o f tablet 00:00: mouth [place] 00 daily. [facility] spironolact 2021-02 Yes [id number] 25mg Take 1 [facility] one 25 mg 0-21 tablet by ity o f tablet 00:00: mouth [place] 00 daily. [facility] spironolact 2021-02 Yes [id number] 25mg Take 1 [facility] one 25 mg 0-21 tablet by ity o f tablet 00:00: mouth [place] 00 daily. [facility] spironolact 2021-02 Yes [id number] 25mg Take 1 [facility] one 25 mg 0-21 tablet by ity o f tablet 00:00: mouth [place] 00 daily. [facility] spironolact 2021-02 Yes [id number] 25mg Take 1 [facility] one 25 mg 0-21 tablet by ity o f tablet 00:00: mouth [place] 00 daily. [facility] spironolact 2021-02 Yes [id number] 25mg Take 1 [facility] one 25 mg 0-21 tablet by ity o f tablet 00:00: mouth [place] 00 daily. [facility] Branch spironolact 2021-02 Yes [id number] 25mg Take 1 [facility] one 25 mg 0-21 tablet by ity o f tablet 00:00: mouth [place] 00 daily. [facility] spironolact 2021-02 Yes [id number] 25mg Take 1 [facility] one 25 mg 0-21 tablet by ity o f tablet 00:00: mouth [place] 00 daily. [facility] spironolact 2021-02 Yes [id number] 25mg Take 1 [facility] one 25 mg 0-21 tablet by ity o f tablet 00:00: mouth [place] 00 daily. [facility] spironolact 2021-02 Yes [id number] 25mg Take 1 [facility] one 25 mg 0-21 tablet by ity o f tablet 00:00: mouth [place] 00 daily. Medical Branch spironolact 2021-02 Yes [id number] 25mg Take 1 [facility] one 25 mg 0-21 tablet by ity o f tablet 00:00: mouth [place] 00 daily. [facility] spironolact 2021-02 Yes [id number] 25mg Take 1 [facility] one 25 mg 0-21 tablet by ity o f tablet 00:00: mouth [place] 00 daily. Medical Branch spironolact 2021-02- No [id number] 25mg Take 1 [facility] one 25 mg 0-21 04-12 tablet by ity of tablet 00:00: 00:00 mouth [place] 00 :00 daily. Medical Branch spironolact 2021-02- No [id number] 25mg Take 1 [facility] one 25 mg 0-21 04-12 tablet by ity of tablet 00:00: 00:00 mouth [place] 00 :00 daily. Medical Branch losartan 25 2021-02- No [id number] 25mg Take 1 [facility] mg tablet 0-05 03- tablet by ity of 00:00: 00:00 mouth at [place] 00 :00 bedtime. Medical Branch furosemide 2021-02- No [id number] 20mg Take 1 [facility] 20 mg 0-05 03-27 tablet by ity of tablet 00:00: 00:00 mouth [place] 00 :00 daily. Medical Branch losartan 25 2021-02- No [id number] 25mg Take 1 [facility] mg tablet 0-03-11 tablet by ity of 00:00: 00:00 mouth at [place] 00 :00 bedtime. Medical Branch furosemide 2021-02- No [id number] 20mg Take 1 [facility] 20 mg 0-03-11 tablet by ity of tablet 00:00: 00:00 mouth [place] 00 :00 daily. Medical Branch losartan 25 2021-02- No [id number] 25mg Take 1 [facility] mg tablet 003-11 tablet by ity of 00:00: 00:00 mouth at [place] 00 :00 bedtime. Medical Branch furosemide 2021-02- No [id number] 20mg Take 1 [facility] 20 mg 0-03-11 tablet by ity of tablet 00:00: 00:00 mouth [place] 00 :00 daily. Medical Branch losartan 25 2021-02- No [id number] 25mg Take 1 [facility] mg tablet 003-11 tablet by ity of 00:00: 00:00 mouth at [place] 00 :00 bedtime. Medical Branch furosemide 2021-02- No [id number] 20mg Take 1 [facility] 20 mg 0-05 03-27 tablet by ity of tablet 00:00: 00:00 mouth [place] 00 :00 daily. Medical Branch losartan 25 2021-02- No [id number] 25mg Take 1 [facility] mg tablet 0-03-11 tablet by ity of 00:00: 00:00 mouth at [place] 00 :00 bedtime. Medical Branch furosemide 2021-2022- No [id number] 20mg Take 1 [facility] 20 mg 0-05 03-27 tablet by ity of tablet 00:00: 00:00 mouth [place] 00 :00 daily. Medical Branch losartan 25 2021-02- No [id number] 25mg Take 1 [facility] mg tablet 0-05 03- tablet by ity of 00:00: 00:00 mouth at [place] 00 :00 bedtime. Medical Branch furosemide 2021-02- No [id number] 20mg Take 1 [facility] 20 mg 0-05 03-27 tablet by ity of tablet 00:00: 00:00 mouth [place] 00 :00 daily. Medical Branch losartan 25 2021-02- No [id number] 25mg Take 1 [facility] mg tablet 0-05 03- tablet by ity of 00:00: 00:00 mouth at [place] 00 :00 bedtime. Medical Branch furosemide 2021-02- No [id number] 20mg Take 1 [facility] 20 mg 0-05 03- tablet by ity of tablet 00:00: 00:00 mouth [place] 00 :00 daily. Medical Branch benzonatate 2021-02- No [id number] 200mg Take 1 [facility] 200 mg 0-21 12-09 capsule by ity of capsule 00:00: 00:00 mouth 3 [place] 00 :00 (three) Medical times [place] daily as needed for Cough. atorvastati 2021-02- No [id number] 40mg Take 1 [facility] n 40 mg 0-21 12-09 tablet by ity of tablet 00:00: 00:00 mouth at [place] 00 :00 bedtime. Medical Branch benzonatate 2021-02- No [id number] 200mg Take 1 [facility] 200 mg 0-21 12-09 capsule by ity of capsule 00:00: 00:00 mouth 3 [place] 00 :00 (three) Medical times Branch daily as needed for Cough. atorvastati 2021-02- No [id number] 40mg Take 1 [facility] n 40 mg 0-21 12-09 tablet by ity of tablet 00:00: 00:00 mouth at [place] 00 :00 bedtime. Medical Branch Albuterol 2021- No 4{puff} Inhale 4 [facility] Sulfate 9-30 09-[address] [place] (VENTOLIN 15:42: 00:00 mouth two of HFA) 108 52 :00 times Medicin (90 Base) daily. e MCG/ACT AERS carvedilol Yes 12.5mg Take 12.5 Art (COREG) 9-[address] [place] [facility] 12.5 MG 14:53: mouth of tablet 41 daily. Medicin e carvedilol Yes 12.5mg Take 12.5 [facility] (COREG) 9-[address] [place] [facility] [place] 12.5 MG 14:53: mouth of tablet 41 daily. Medicin e Albuterol Yes [id number] 4{puff} Inhale 4 [facility] Sulfate 9-[address] [place] [facility] [place] (VENTOLIN 00:00: mouth two of HFA) 108 00 times Medicin (90 Base) daily. e MCG/ACT AERS Fluticasone Yes [id number] 1{puff} Inhale 1 [facility] -Salmeterol 9-30 Puff by Shanda weber (ADVAIR) 00:00: mouth of 250-50 00 every 12 Medicin MCG/ACT hours. e inhaler albuterol Yes [id number] 2.5mg Take 1 [facility] (PROVENTIL) 9-30 Ampule by [facility] (2.5 mg/3 00:00: nebulizati of mL) 0.083% 00 on every 4 Med icin nebulizer hours as e solution needed for Wheezing. Diclofenac Yes [id number] 5g Apply 5 g Art Sodium 1 % 9-30 topically Kristine ege GEL 00:00: every 6 of 00 hours as Medicin needed for e Pain. Albuterol Yes [id number] 4{puff} Inhale 4 Art Sulfate 9-[address] [facility] [place] (VENTOLIN 00:00: mouth two of HFA) 108 00 times Medicin (90 Base) daily. e MCG/ACT AERS albuterol Yes [id number] 2.5mg Take 1 Art (PROVENTIL) 9-30 Ampule by [facility] (2.5 mg/3 00:00: nebulizati of mL) 0.083% 00 on every 4 Med icin nebulizer hours as e solution needed for Wheezing. Fluticasone 2022- No [id number] 1{puff} Inhale 1 [facility] -Salmeterol 9-30 02-10 Puff by Kristine ege (ADVAIR) 00:00: 00:00 mouth of 250-50 00 :00 every 12 Medicin MCG/ACT hours. e inhaler Diclofenac 2022- No [id number] 5g Apply 5 g [facility] Sodium 1 % 11-12 topically [...] 22 :00 Medicin e losartan 50 Yes [id number] 25mg Take 0.5 [facility] mg tablet 9-12 tablets by ity of 00:00: mouth [place] 00 every Medical evening. Branch losartan 50 Yes [id number] 25mg Take 0.5 [facility] mg tablet 9-12 tablets by ity of 00:00: mouth [place] 00 every Medical evening. Branch losartan 50 Yes [id number] 25mg Take 0.5 [facility] mg tablet 9-12 tablets by ity of 00:00: mouth [place] 00 every Medical evening. Branch losartan 50 0 Yes [id number] 25mg Take 0.5 [facility] mg tablet 9-12 tablets by ity of 00:00: mouth [place] 00 every Medical evening. Branch losartan 50 0 Yes [id number] 25mg Take 0.5 [facility] mg tablet 9-12 tablets by ity of 00:00: mouth [place] 00 every Medical evening. Branch losartan 50 Yes [id number] 25mg Take 0.5 [facility] mg tablet 9-12 tablets by ity of 00:00: mouth [place] 00 every Medical evening. Branch losartan 50 0 Yes [id number] 25mg Take 0.5 [facility] mg tablet 9-12 tablets by ity of 00:00: mouth [place] 00 every Medical evening. Branch losartan 50 0 Yes [id number] 25mg Take 0.5 [facility] mg tablet 9-12 tablets by ity of 00:00: mouth [place] 00 every Medical evening. Branch losartan 50 Yes [id number] 25mg Take 0.5 [facility] mg tablet 9-12 tablets by ity of 00:00: mouth [place] 00 every Medical evening. Branch losartan 50 2021-0 Yes [id number] 25mg Take 0.5 [facility] mg tablet 9-12 tablets by ity of 00:00: mouth [place] 00 every Medical evening. Branch losartan 50 2021-0 Yes [id number] 25mg Take 0.5 [facility] mg tablet 9-12 tablets by ity of 00:00: mouth [place] 00 every Medical evening. Branch losartan 50 2021-0 Yes [id number] 25mg Take 0.5 [facility] mg tablet 9-12 tablets by ity of 00:00: mouth [place] 00 every Medical evening. Branch losartan 50 2021-0 Yes [id number] 25mg Take 0.5 [facility] mg tablet 9-12 tablets by ity of 00:00: mouth [place] 00 every Medical evening. Branch losartan 50 2021-0 2021- No [id number] 25mg Take 0.5 [facility] mg tablet 9-12 10-21 tablets by ity of 00:00: 00:00 mouth [place] 00 :00 every Medical evening. Branch losartan 50 2021-0 2021- No [id number] 25mg Take 0.5 [facility] mg tablet 9-12 10-21 tablets by ity of 00:00: 00:00 mouth [place] 00 :00 every Medical evening. Branch furosemide 0 Yes 40mg Take 40 mg [facility] (LASIX) 40 8-28 by mouth Colle [facility] MG tablet 00:00: daily. of 00 Medicin e spironolact 0 Yes 25mg Take 25 mg Art one 8-[address] [place] [facility] [place] (ALDACTONE) 00:00: daily. of 25 MG 00 Medicin tablet e furosemide 0 Yes 40mg Take 40 mg [facility] (LASIX) 40 8-28 by mouth [facility]le [facility] MG tablet 00:00: daily. of 00 Medicin e spironolact 0 Yes 25mg Take 25 mg [facility] one 8-28 by mouth [facility] (ALDACTONE) 00:00: daily. of 25 MG 00 Medicin tablet e furosemide 2021-0 2022- No 40mg Take 40 mg [facility] (LASIX) 40 8-28 02-10 by mouth Kristine ege MG tablet 00:00: 00:00 daily. of 00 :00 Medicin e spironolact 2021-0 2022- No 25mg Take 25 mg [facility] one 8-28 02-10 by [facility] [place] (ALDACTONE) 00:00: 00:00 daily. of 25 MG 00 :00 Medicin tablet e metFORMIN 2-0 Yes 500mg Take 1 Unive [...] No 10mg Take 10 mg [facility] CHLORIDE 7-15 by mouth. ity o f ORAL 14:50: 00:00 Managed by [place] 14 :00 Dr. Cuenca Medical Branch losartan 50 2021-0 202- No [id number] 50mg Take 1 [facility] mg tablet 08-27-12 tablet by ity of 00:00: 00:00 mouth [place] 00 :00 daily. Medical Branch losartan 50 2021-0 2021- No [id number] 50mg Take 1 [facility] mg tablet 05-04-15 tablet by ity of 00:00: 00:00 mouth 2 [place] 00 :00 (two) Medical times Branch daily. Magnesium 2021-0 Yes Take by [facility] MG CAPS 3-21 mouth. Colleg e 10:29: of 08 Medicin e Melatonin 2021-0 Yes Take by [facility] 10 MG TABS 3-21 mouth. College 10:29: of 08 Medicin e furosemide 2021-0 Yes 40mg Take [...] by ity of tablet 00:00: 00:00 mouth [place] 00 :00 daily. Medical [facility] 2020-02 Yes [id number] 40mg TAKE 1 [facility] N 40 mg 2-13 TABLET BY ity of tablet 00:00: MOUTH AT [address] 2020-02 Yes [id number] 40mg TAKE 1 [facility] N 40 mg 2-13 TABLET BY ity of tablet 00:00: MOUTH AT [address] 2020-02 Yes [id number] 40mg TAKE 1 [facility] N 40 mg 2-13 TABLET BY ity of tablet 00:00: MOUTH AT [address] 2020-02 Yes [id number] 40mg TAKE 1 [facility] N 40 mg 2-13 TABLET BY ity of tablet 00:00: MOUTH AT [address] 2020-02 Yes [id number] 40mg TAKE 1 [facility] N 40 mg 2-13 TABLET BY ity of tablet 00:00: MOUTH AT [address] 2020-02 Yes [id number] 40mg TAKE 1 [facility] N 40 mg 2-13 TABLET BY ity of tablet 00:00: MOUTH AT [address] 2020-02 Yes [id number] 40mg TAKE 1 [facility] N 40 mg 2-13 TABLET BY ity of tablet 00:00: MOUTH AT [address] 2020-02 Yes [id number] 40mg TAKE 1 [facility] N 40 mg 2-13 TABLET BY ity of tablet 00:00: MOUTH AT [address] 2020-02 Yes [id number] 40mg TAKE 1 [facility] N 40 mg 2-13 TABLET BY ity of tablet 00:00: MOUTH AT [address] 2020-02 Yes [id number] 40mg TAKE 1 [facility] N 40 mg 2-13 TABLET BY ity of tablet 00:00: MOUTH AT [address] 2020-02 Yes [id number] 40mg TAKE 1 [facility] N 40 mg 2-13 TABLET BY ity of tablet 00:00: MOUTH AT [address] 2020-02 Yes [id number] 40mg TAKE 1 [facility] N 40 mg 2-13 TABLET BY ity of tablet 00:00: MOUTH AT [place] [facility]-02 Yes [id number] 40mg TAKE 1 [facility] N 40 mg 2-13 TABLET BY ity of tablet 00:00: MOUTH AT [place] [facility] Yes [id number] 40mg TAKE 1 [facility] N 40 mg 2-13 TABLET BY ity of tablet 00:00: [facility] AT [place] [facility]-02- No [id number] 40mg TAKE 1 [facility] N 40 mg 2-13 10-21 TABLET BY ity of tablet 00:00: 00:00 MOUTH AT [place] 00 :[facility] 2020-02- No [id number] 40mg TAKE 1 [facility] N 40 mg 2-13 10-21 TABLET BY ity of tablet 00:00: 00:00 MOUTH AT [place] 00 :00 [facility] 2020-02- No [id number] 40mg TAKE 1 [facility] N 40 mg 2-13 10-21 TABLET BY ity of tablet 00:00: 00:00 MOUTH AT [place] 00 :00 [facility] azelastine 2020-02 Yes [id number] 1{spray Use 1 [facility] 137 mcg 2-02 } [place] in ity of (0.1 %) 00:00: each [place] nasal spray 00 nostril 2 Med ical (two) Branch times daily. Use in each nostril as directed fluticasone 2020-02 Yes [id number] 2{puff} Inhale 2 [facility] propionate 2-02 Puffs 2 ity of (FLOVENT 00:00: (two) [place] HFA) 44 00 times Medical mcg/actuati daily. Branch on inhaler Rinse mouth after each use. azelastine 2020-02 Yes [id number] 1{spray Use 1 [facility] 137 mcg 2-02 } [place] in ity of (0.1 %) 00:00: each [place] nasal spray 00 nostril 2 Med ical (two) Branch times daily. Use in each nostril as directed fluticasone 2020-02 Yes [id number] 2{puff} Inhale 2 [facility] propionate 2-02 Puffs 2 ity of (FLOVENT 00:00: (two) [place] HFA) 44 00 times Medical mcg/actuati daily. Branch on inhaler Rinse mouth after each use. azelastine 2020-02 Yes [id number] 1{spray Use 1 [facility] 137 mcg 2-02 } [place] in ity of (0.1 %) 00:00: each [place] nasal spray 00 nostril 2 Med ical (two) Branch times daily. Use in each nostril as directed fluticasone 2020-02 Yes [id number] 2{puff} Inhale 2 [facility] propionate 2-02 Puffs 2 ity of (FLOVENT 00:00: (two) [place] HFA) 44 00 times Medical mcg/actuati daily. Branch on inhaler Rinse mouth after each use. azelastine 2020-02 Yes [id number] 1{spray Use 1 [facility] 137 mcg 2-02 } [place] in ity of (0.1 %) 00:00: each [place] nasal spray 00 nostril 2 Med ical (two) Branch times daily. Use in each nostril as directed fluticasone 2020-02 Yes [id number] 2{puff} Inhale 2 [facility] propionate 2-02 Puffs 2 ity of (FLOVENT 00:00: (two) [place] HFA) 44 00 times Medical mcg/actuati daily. Branch on inhaler Rinse mouth after each use. azelastine 2020-02 Yes [id number] 1{spray Use 1 [facility] 137 mcg 2-02 } [place] in ity of (0.1 %) 00:00: each [place] nasal spray 00 nostril 2 Med ical (two) Branch times daily. Use in each nostril as directed fluticasone 2020-02 Yes [id number] 2{puff} Inhale 2 [facility] propionate 2-02 Puffs 2 ity of (FLOVENT 00:00: (two) [place] HFA) 44 00 times Medical mcg/actuati daily. Branch on inhaler Rinse mouth after each use. azelastine 2020-02 Yes [id number] 1{spray Use 1 [facility] 137 mcg 2-02 } [place] in ity of (0.1 %) 00:00: each [place] nasal spray 00 nostril 2 Med ical (two) Branch times daily. Use in each nostril as directed fluticasone 2020-02 Yes [id number] 2{puff} Inhale 2 [facility] propionate 2-02 Puffs 2 ity of (FLOVENT 00:00: (two) [place] HFA) 44 00 times Medical mcg/actuati daily. Branch on inhaler Rinse mouth after each use. azelastine 2020-02 Yes [id number] 1{spray Use 1 [facility] 137 mcg 2-02 } [place] in ity of (0.1 %) 00:00: each [place] nasal spray 00 nostril 2 Med ical (two) Branch times daily. Use in each nostril as directed fluticasone 2020-02 Yes [id number] 2{puff} Inhale 2 [facility] propionate 2-02 Puffs 2 ity of (FLOVENT 00:00: (two) [place] HFA) 44 00 times Medical mcg/actuati daily. Branch on inhaler Rinse mouth after each use. azelastine 2020-02 Yes [id number] 1{spray Use 1 [facility] 137 mcg 2-02 } [place] in ity of (0.1 %) 00:00: each [place] nasal spray 00 nostril 2 Med ical (two) Branch times daily. Use in each nostril as directed fluticasone 2020-02 Yes [id number] 2{puff} Inhale 2 [facility] propionate 2-02 Puffs 2 ity of (FLOVENT 00:00: (two) [place] HFA) 44 00 times Medical mcg/actuati daily. Branch on inhaler Rinse mouth after each use. azelastine 2020-02 Yes [id number] 1{spray Use 1 [facility] 137 mcg 2-02 } [place] in ity of (0.1 %) 00:00: each [place] nasal spray 00 nostril 2 Med ical (two) Branch times daily. Use in each nostril as directed fluticasone 2020-02 Yes [id number] 2{puff} Inhale 2 [facility] propionate 2-02 Puffs 2 ity of (FLOVENT 00:00: (two) [place] HFA) 44 00 times Medical mcg/actuati daily. Branch on inhaler Rinse mouth after each use. azelastine 2020-02 Yes [id number] 1{spray Use 1 [facility] 137 mcg 2-02 } [place] in ity of (0.1 %) 00:00: each [place] nasal spray 00 nostril 2 Med ical (two) Branch times daily. Use in each nostril as directed fluticasone 2020-02 Yes [id number] 2{puff} Inhale 2 [facility] propionate 2-02 Puffs 2 ity of (FLOVENT 00:00: (two) [place] HFA) 44 00 times Medical mcg/actuati daily. Branch on inhaler Rinse mouth after each use. azelastine 2020-02 Yes [id number] 1{spray Use 1 [facility] 137 mcg 2-02 } [place] in ity of (0.1 %) 00:00: each [place] nasal spray 00 nostril 2 Med ical (two) Branch times daily. Use in each nostril as directed fluticasone 2020-02 Yes [id number] 2{puff} Inhale 2 [facility] propionate 2-02 Puffs 2 ity of (FLOVENT 00:00: (two) [place] HFA) 44 00 times Medical mcg/actuati daily. Branch on inhaler Rinse mouth after each use. azelastine 2020-02 Yes [id number] 1{spray Use 1 [facility] 137 mcg 2-02 } [place] in ity of (0.1 %) 00:00: each [place] nasal spray 00 nostril 2 Med ical (two) Branch times daily. Use in each nostril as directed fluticasone 2020-02 Yes [id number] 2{puff} Inhale 2 [facility] propionate 2-02 Puffs 2 ity of (FLOVENT 00:00: (two) [place] HFA) 44 00 times Medical mcg/actuati daily. Branch on inhaler Rinse mouth after each use. azelastine 2020-02 Yes [id number] 1{spray Use 1 [facility] 137 mcg 2-02 } [place] in ity of (0.1 %) 00:00: each [place] nasal spray 00 nostril 2 Med ical (two) Branch times daily. Use in each nostril as directed fluticasone 2020-02 Yes [id number] 2{puff} Inhale 2 [facility] propionate 2-02 Puffs 2 ity of (FLOVENT 00:00: (two) [place] HFA) 44 00 times Medical mcg/actuati daily. Branch on inhaler Rinse mouth after each use. azelastine 2020-02 Yes [id number] 1{spray Use 1 [facility] 137 mcg 2-02 } [place] in ity of (0.1 %) 00:00: each [place] nasal spray 00 nostril 2 Med ical (two) Branch times daily. Use in each nostril as directed fluticasone 2020-02 Yes [id number] 2{puff} Inhale 2 [facility] propionate 2-02 Puffs 2 ity of (FLOVENT 00:00: (two) [place] HFA) 44 00 times Medical mcg/actuati daily. Branch on inhaler Rinse mouth after each use. azelastine 2020-02 Yes [id number] 1{spray Use 1 [facility] 137 mcg 2-02 } [place] in ity of (0.1 %) 00:00: each [place] nasal spray 00 nostril 2 Med ical (two) Branch times daily. Use in each nostril as directed fluticasone 2020-02 Yes [id number] 2{puff} Inhale 2 [facility] propionate 2-02 Puffs 2 ity of (FLOVENT 00:00: (two) [place] HFA) 44 00 times Medical mcg/actuati daily. Branch on inhaler Rinse mouth after each use. azelastine 2020-02 Yes [id number] 1{spray Use 1 [facility] 137 mcg 2-02 } [place] in ity of (0.1 %) 00:00: each [place] nasal spray 00 nostril 2 Med ical (two) Branch times daily. Use in each nostril as directed fluticasone 2020-02 Yes [id number] 2{puff} Inhale 2 [facility] propionate 2-02 Puffs 2 ity of (FLOVENT 00:00: (two) [place] HFA) 44 00 times Medical mcg/actuati daily. Branch on inhaler Rinse mouth after each use. azelastine 2020-02 Yes [id number] 1{spray Use 1 [facility] 137 mcg 2-02 } [place] in ity of (0.1 %) 00:00: each [place] nasal spray 00 nostril 2 Med ical (two) Branch times daily. Use in each nostril as directed fluticasone 2020-02 Yes [id number] 2{puff} Inhale 2 [facility] propionate 2-02 Puffs 2 ity of (FLOVENT 00:00: (two) [place] HFA) 44 00 times Medical mcg/actuati daily. Branch on inhaler Rinse mouth after each use. azelastine 2020-02 Yes [id number] 1{spray Use 1 [facility] 137 mcg 2-02 } [place] in ity of (0.1 %) 00:00: each [place] nasal spray 00 nostril 2 Med ical (two) Branch times daily. Use in each nostril as directed fluticasone 2020-02 Yes [id number] 2{puff} Inhale 2 [facility] propionate 2-02 Puffs 2 ity of (FLOVENT 00:00: (two) [place] HFA) 44 00 times Medical mcg/actuati daily. Branch on inhaler Rinse mouth after each use. azelastine 2020-02 Yes [id number] 1{spray Use 1 [facility] 137 mcg 2-02 } [place] in ity of (0.1 %) 00:00: each [place] nasal spray 00 nostril 2 Med ical (two) Branch times daily. Use in each nostril as directed fluticasone 2020-02 Yes [id number] 2{puff} Inhale 2 [facility] propionate 2-02 Puffs 2 ity of (FLOVENT 00:00: (two) [place] HFA) 44 00 times Medical mcg/actuati daily. Branch on inhaler Rinse mouth after each use. azelastine 2020-02 Yes [id number] 1{spray Use 1 [facility] 137 mcg 2-02 } [place] in ity of (0.1 %) 00:00: each [place] nasal spray 00 nostril 2 Med ical (two) Branch times daily. Use in each nostril as directed fluticasone 2020-02 Yes [id number] 2{puff} Inhale 2 [facility] propionate 2-02 Puffs 2 ity of (FLOVENT 00:00: (two) [place] HFA) 44 00 times Medical mcg/actuati daily. Branch on inhaler Rinse mouth after each use. azelastine 2020-02 Yes [id number] 1{spray Use 1 [facility] 137 mcg 2-02 } [place] in ity of (0.1 %) 00:00: each [place] nasal spray 00 nostril 2 Med ical (two) Branch times daily. Use in each nostril as directed fluticasone 2020-02 Yes [id number] 2{puff} Inhale 2 [facility] propionate 2-02 Puffs 2 ity of (FLOVENT 00:00: (two) [place] HFA) 44 00 times Medical mcg/actuati daily. Branch on inhaler Rinse mouth after each use. azelastine 2020-02 Yes [id number] 1{spray Use 1 [facility] 137 mcg 2-02 } [place] in ity of (0.1 %) 00:00: each [place] nasal spray 00 nostril 2 Med ical (two) Branch times daily. Use in each nostril as directed fluticasone 2020-02 Yes [id number] 2{puff} Inhale 2 [facility] propionate 2-02 Puffs 2 ity of (FLOVENT 00:00: (two) [place] HFA) 44 00 times Medical mcg/actuati daily. Branch on inhaler Rinse mouth after each use. azelastine 2020-02 Yes [id number] 1{spray Use 1 [facility] 137 mcg 2-02 } [place] in ity of (0.1 %) 00:00: each [place] nasal spray 00 nostril 2 Med ical (two) Branch times daily. Use in each nostril as directed fluticasone 2020-02 Yes [id number] 2{puff} Inhale 2 [facility] propionate 2-02 Puffs 2 ity of (FLOVENT 00:00: (two) [place] HFA) 44 00 times Medical mcg/actuati daily. Branch on inhaler Rinse mouth after each use. azelastine 2020-02 Yes [id number] 1{spray Use 1 [facility] 137 mcg 2-02 } [place] in ity of (0.1 %) 00:00: each [place] nasal spray 00 nostril 2 Med ical (two) Branch times daily. Use in each nostril as directed fluticasone 2020-02 Yes [id number] 2{puff} Inhale 2 [facility] propionate 2-02 Puffs 2 ity of (FLOVENT 00:00: (two) [place] HFA) 44 00 times Medical mcg/actuati daily. Branch on inhaler Rinse mouth after each use. azelastine 2020-02 Yes [id number] 1{spray Use 1 [facility] 137 mcg 2-02 } [place] in ity of (0.1 %) 00:00: each [place] nasal spray 00 nostril 2 Med ical (two) Branch times daily. Use in each nostril as directed fluticasone 2020-02 Yes [id number] 2{puff} Inhale 2 [facility] propionate 2-02 Puffs 2 ity of (FLOVENT 00:00: (two) [place] HFA) 44 00 times Medical mcg/actuati daily. Branch on inhaler Rinse mouth after each use. azelastine 2020-02 Yes [id number] 1{spray Use 1 [facility] 137 mcg 2-02 } [place] in ity of (0.1 %) 00:00: each [place] nasal spray 00 nostril 2 Med ical (two) Branch times daily. Use in each nostril as directed fluticasone 2020-02 Yes [id number] 2{puff} Inhale 2 [facility] propionate 2-02 Puffs 2 [facility]y of (FLOVENT 00:00: (two) [place] [facility]) 44 00 times Medical mcg/actuati daily. Branch on inhaler Rinse mouth after each use. azelastine 2020-02 Yes [id number] 1{spray Use 1 [facility] 137 mcg 2-02 } [place] in ity of (0.1 %) 00:00: each [place] nasal spray 00 nostril 2 Med ical (two) Branch times daily. Use in each nostril as directed fluticasone 2020-02 Yes [id number] 2{puff} Inhale 2 [facility] propionate 2-02 Puffs 2 ity of (FLOVENT 00:00: (two) [place] [facility]FA) 44 00 times Medical mcg/actuati daily. Branch on inhaler Rinse mouth after each use. azelastine 2020-02 Yes [id number] 1{spray Use 1 [facility] 137 mcg 2-02 } [place] in ity of (0.1 %) 00:00: each [place] nasal spray 00 nostril 2 Med ical (two) Branch times daily. Use in each nostril as directed fluticasone 2020-02 Yes [id number] 2{puff} Inhale 2 [facility] propionate 2-02 Puffs 2 [facility]y of (FLOVENT 00:00: (two) [place] [facility]FA) 44 00 times Medical mcg/actuati daily. Branch on inhaler Rinse mouth after each use. azelastine 2020-02 Yes [id number] 1{spray Use 1 [facility] 137 mcg 2-02 } [place] in ity of (0.1 %) 00:00: each [place] nasal spray 00 nostril 2 Med ical (two) Branch times daily. Use in each nostril as directed fluticasone 2020-02 Yes [id number] 2{puff} Inhale 2 [facility] propionate 2-02 Puffs 2 ity of ([place]OVENT 00:00: (two) [place] [facility]FA) 44 00 times Medical mcg/actuati daily. Branch on inhaler Rinse mouth after each use. azelastine 2020-02 Yes [id number] 1{spray Use 1 [facility] 137 mcg 2-02 } [place] in ity of (0.1 %) 00:00: each [place] nasal spray 00 nostril 2 Med ical (two) Branch times daily. Use in each nostril as directed fluticasone 2020-02 Yes [id number] 2{puff} Inhale 2 [facility] propionate 2-02 Puffs 2 ity of (FLOVENT 00:00: (two) [place] [facility]FA) 44 00 times Medical mcg/actuati daily. Branch on inhaler Rinse mouth after each use. azelastine 2020-02 Yes [id number] 1{spray Use 1 [facility] 137 mcg 2-02 } [place] in ity of (0.1 %) 00:00: each [place] nasal spray 00 nostril 2 Med ical (two) Branch times daily. Use in each nostril as directed fluticasone 2020-02 Yes [id number] 2{puff} Inhale 2 [facility] propionate 2-02 Puffs 2 ity of (FLOVENT 00:00: (two) [place] [facility]FA) 44 00 times Medical mcg/actuati daily. Branch on inhaler Rinse mouth after each use. azelastine 2020-02 Yes [id number] 1{spray Use 1 [facility] 137 mcg 2-02 } [place] in ity of (0.1 %) 00:00: each [place] nasal spray 00 nostril 2 Med ical (two) Branch times daily. Use in each nostril as directed fluticasone 2020-02 Yes [id number] 2{puff} Inhale 2 [facility] propionate 2-02 Puffs 2 ity of ([place]OVENT 00:00: (two) [place] [facility]FA) 44 00 times Medical mcg/actuati daily. Branch on inhaler Rinse mouth after each use. azelastine 2020-02 Yes [id number] 1{spray Use 1 [facility] 137 mcg 2-02 } [place] in ity of (0.1 %) 00:00: each [place] nasal spray 00 nostril 2 Med ical (two) Branch times daily. Use in each nostril as directed fluticasone 2020-02 Yes [id number] 2{puff} Inhale 2 [facility] propionate 2-02 Puffs 2 ity of (FLOVENT 00:00: (two) [place] [facility]FA) 44 00 times Medical mcg/actuati daily. Branch on inhaler Rinse mouth after each use. azelastine 2020-02 Yes [id number] 1{spray Use 1 [facility] 137 mcg 2-02 } [place] in ity of (0.1 %) 00:00: each [place] nasal spray 00 nostril 2 Med ical (two) Branch times daily. Use in each nostril as directed fluticasone 2020-02 Yes [id number] 2{puff} Inhale 2 [facility] propionate 2-02 Puffs 2 ity of (FLOVENT 00:00: (two) [place] [facility]) 44 00 times Medical mcg/actuati daily. Branch on inhaler Rinse mouth after each use. azelastine 2020-02 Yes [id number] 1{spray Use 1 [facility] 137 mcg 2-02 } [place] in ity of (0.1 %) 00:00: each [place] nasal spray 00 nostril 2 Med ical (two) Branch times daily. Use in each nostril as directed fluticasone 2020-02 Yes [id number] 2{puff} Inhale 2 [facility] propionate 2-02 Puffs 2 ity of (FLOVENT 00:00: (two) [place] [facility]) 44 00 times Medical mcg/actuati daily. Branch on inhaler Rinse mouth after each use. azelastine 2020-02 Yes [id number] 1{spray Use 1 [facility] 137 mcg 2-02 } [place] in ity of (0.1 %) 00:00: each [place] nasal spray 00 nostril 2 Med ical (two) Branch times daily. Use in each nostril as directed fluticasone 2020-02 Yes [id number] 2{puff} Inhale 2 [facility] propionate 2-02 Puffs 2 ity of (FLOVENT 00:00: (two) [place] [facility]) 44 00 times Medical mcg/actuati daily. Branch on inhaler Rinse mouth after each use. azelastine 2020-02 Yes [id number] 1{spray Use 1 [facility] 137 mcg 2-02 } [place] in ity of (0.1 %) 00:00: each [place] nasal spray 00 nostril 2 Med ical (two) Branch times daily. Use in each nostril as directed fluticasone 2020-02 Yes [id number] 2{puff} Inhale 2 [facility] propionate 2-02 Puffs 2 ity of (FLOVENT 00:00: (two) [place] [facility]) 44 00 times Medical mcg/actuati daily. Branch on inhaler Rinse mouth after each use. azelastine 2020-02 Yes [id number] 1{spray Use 1 [facility] 137 mcg 2-02 } [place] in ity of (0.1 %) 00:00: each [place] nasal spray 00 nostril 2 Med ical (two) Branch times daily. Use in each nostril as directed fluticasone 2020-02 Yes [id number] 2{puff} Inhale 2 [facility] propionate 2-02 Puffs 2 ity of (FLOVENT 00:00: (two) [place] [facility]) 44 00 times Medical mcg/actuati daily. Branch on inhaler Rinse mouth after each use. azelastine 2020-02 Yes [id number] 1{spray Use 1 [facility] 137 mcg 2-02 } [place] in ity of (0.1 %) 00:00: each [place] nasal spray 00 nostril 2 Med ical (two) Branch times daily. Use in each nostril as directed fluticasone 2020-02 Yes [id number] 2{puff} Inhale 2 [facility] propionate 2-02 Puffs 2 ity of (FLOVENT 00:00: (two) [place] [facility]FA) 44 00 times Medical mcg/actuati daily. Branch on inhaler Rinse mouth after each use. azelastine 2020-02 Yes [id number] 1{spray Use 1 [facility] 137 mcg 2-02 } [place] in ity of (0.1 %) 00:00: each [place] nasal spray 00 nostril 2 Med ical (two) Branch times daily. Use in each nostril as directed fluticasone 2020-02 Yes [id number] 2{puff} Inhale 2 [facility] propionate 2-02 Puffs 2 ity of (FLOVENT 00:00: (two) [place] [facility]) 44 00 times Medical mcg/actuati daily. Branch on inhaler Rinse mouth after each use. azelastine 2020-02 Yes [id number] 1{spray Use 1 [facility] 137 mcg 2-02 } [place] in ity of (0.1 %) 00:00: each [place] nasal spray 00 nostril 2 Med ical (two) Branch times daily. Use in each nostril as directed fluticasone 2020-02 Yes [id number] 2{puff} Inhale 2 [facility] propionate 2-02 Puffs 2 ity of (FLOVENT 00:00: (two) [place] [facility]) 44 00 times Medical mcg/actuati daily. Branch on inhaler Rinse mouth after each use. azelastine 2020-02 Yes [id number] 1{spray Use 1 [facility] 137 mcg 2-02 } [place] in ity of (0.1 %) 00:00: each [place] nasal spray 00 nostril 2 Med ical (two) Branch times daily. Use in each nostril as directed fluticasone 2020-02 Yes [id number] 2{puff} Inhale 2 [facility] propionate 2-02 Puffs 2 ity of (FLOVENT 00:00: (two) [place] [facility]) 44 00 times Medical mcg/actuati daily. Branch on inhaler Rinse mouth after each use. azelastine 2020-02 Yes [id number] 1{spray Use 1 [facility] 137 mcg 2-02 } [place] in ity of (0.1 %) 00:00: each [place] nasal spray 00 nostril 2 Med ical (two) Branch times daily. Use in each nostril as directed fluticasone 2020-02 Yes [id number] 2{puff} Inhale 2 [facility] propionate 2-02 Puffs 2 ity of (FLOVENT 00:00: (two) [place] [facility]) 44 00 times Medical mcg/actuati daily. Branch on inhaler Rinse mouth after each use. azelastine 2020-02 Yes [id number] 1{spray Use 1 [facility] 137 mcg 2-02 } [place] in ity of (0.1 %) 00:00: each [place] nasal spray 00 nostril 2 Med ical (two) Branch times daily. Use in each nostril as directed fluticasone 2020-02 Yes [id number] 2{puff} Inhale 2 [facility] propionate 2-02 Puffs 2 ity of (FLOVENT 00:00: (two) [place] [facility]) 44 00 times Medical mcg/actuati daily. Branch on inhaler Rinse mouth after each use. azelastine 2020-02 Yes [id number] 1{spray Use 1 [facility] 137 mcg 2-02 } [place] in ity of (0.1 %) 00:00: each [place] nasal spray 00 nostril 2 Med ical (two) Branch times daily. Use in each nostril as directed fluticasone 2020-02 Yes [id number] 2{puff} Inhale 2 [facility] propionate 2-02 Puffs 2 ity of (FLOVENT 00:00: (two) [place] [facility]) 44 00 times Medical mcg/actuati daily. Branch on inhaler Rinse mouth after each use. azelastine 2020-02 Yes [id number] 1{spray Use 1 [facility] 137 mcg 2-02 } [place] in ity of (0.1 %) 00:00: each [place] nasal spray 00 nostril 2 Med ical (two) Branch times daily. Use in each nostril as directed fluticasone 2020-02 Yes [id number] 2{puff} Inhale 2 [facility] propionate 2-02 Puffs 2 ity of (FLOVENT 00:00: (two) [place] [facility]) 44 00 times Medical mcg/actuati daily. Branch on inhaler Rinse mouth after each use. azelastine 2020-02 Yes [id number] 1{spray Use 1 [facility] 137 mcg 2-02 } [place] in ity of (0.1 %) 00:00: each [place] nasal spray 00 nostril 2 Med ical (two) Branch times daily. Use in each nostril as directed fluticasone 2020-02 Yes [id number] 2{puff} Inhale 2 [facility] propionate 2-02 Puffs 2 ity of (FLOVENT 00:00: (two) [place] [facility]) 44 00 times Medical mcg/actuati daily. Branch on inhaler Rinse mouth after each use. azelastine 2020-02 Yes [id number] 1{spray Use 1 [facility] 137 mcg 2-02 } [place] in ity of (0.1 %) 00:00: each [place] nasal spray 00 nostril 2 Med ical (two) Branch times daily. Use in each nostril as directed fluticasone 2020-02 Yes [id number] 2{puff} Inhale 2 [facility] propionate 2-02 Puffs 2 ity of (FLOVENT 00:00: (two) [place] [facility]FA) 44 00 times Medical mcg/actuati daily. Branch on inhaler Rinse mouth after each use. azelastine 2020-02 Yes [id number] 1{spray Use 1 [facility] 137 mcg 2-02 } [place] in ity of (0.1 %) 00:00: each [place] nasal spray 00 nostril 2 Med ical (two) Branch times daily. Use in each nostril as directed fluticasone 2020-02 Yes [id number] 2{puff} Inhale 2 [facility] propionate 2-02 Puffs 2 ity of (FLOVENT 00:00: (two) [place] [facility]) 44 00 times Medical mcg/actuati daily. Branch on inhaler Rinse mouth after each use. azelastine 2020-02 Yes [id number] 1{spray Use 1 [facility] 137 mcg 2-02 } [place] in ity of (0.1 %) 00:00: each [place] nasal spray 00 nostril 2 Med ical (two) Branch times daily. Use in each nostril as directed fluticasone 2020-02 Yes [id number] 2{puff} Inhale 2 [facility] propionate 2-02 Puffs 2 ity of (FLOVENT 00:00: (two) [place] [facility]) 44 00 times Medical mcg/actuati daily. Branch on inhaler Rinse mouth after each use. azelastine 2020-02 Yes [id number] 1{spray Use 1 [facility] 137 mcg 2-02 } [place] in ity of (0.1 %) 00:00: each [place] nasal spray 00 nostril 2 Med ical (two) Branch times daily. Use in each nostril as directed fluticasone 2020-02 Yes [id number] 2{puff} Inhale 2 [facility] propionate 2-02 Puffs 2 ity of (FLOVENT 00:00: (two) [place] [facility]FA) 44 00 times Medical mcg/actuati daily. Branch on inhaler Rinse mouth after each use. azelastine 2020-02 Yes [id number] 1{spray Use 1 [facility] 137 mcg 2-02 } [place] in ity of (0.1 %) 00:00: each [place] nasal spray 00 nostril 2 Med ical (two) Branch times daily. Use in each nostril as directed fluticasone 2020-02 Yes [id number] 2{puff} Inhale 2 [facility] propionate 2-02 Puffs 2 ity of (FLOVENT 00:00: (two) [place] [facility]FA) 44 00 times Medical mcg/actuati daily. Branch on inhaler Rinse mouth after each use. azelastine 2020-02 Yes [id number] 1{spray Use 1 [facility] 137 mcg 2-02 } [place] in ity of (0.1 %) 00:00: each [place] nasal spray 00 nostril 2 Med ical (two) Branch times daily. Use in each nostril as directed fluticasone 2020-02 Yes [id number] 2{puff} Inhale 2 [facility] propionate 2-02 Puffs 2 ity of (FLOVENT 00:00: (two) [place] [facility]) 44 00 times Medical mcg/actuati daily. Branch on inhaler Rinse mouth after each use. azelastine 2020-02 Yes [id number] 1{spray Use 1 [facility] 137 mcg 2-02 } [place] in ity of (0.1 %) 00:00: each [place] nasal spray 00 nostril 2 Med ical (two) Branch times daily. Use in each nostril as directed fluticasone 2020-02 Yes [id number] 2{puff} Inhale 2 [facility] propionate 2-02 Puffs 2 ity of (FLOVENT 00:00: (two) [place] [facility]FA) 44 00 times Medical mcg/actuati daily. Branch on inhaler Rinse mouth after each use. azelastine 2020-02 Yes [id number] 1{spray Use 1 [facility] 137 mcg 2-02 } [place] in ity of (0.1 %) 00:00: each [place] nasal spray 00 nostril 2 Med ical (two) Branch times daily. Use in each nostril as directed fluticasone 2020-02 Yes [id number] 2{puff} Inhale 2 [facility] propionate 2-02 Puffs 2 ity of (FLOVENT 00:00: (two) [place] [facility]FA) 44 00 times Medical mcg/actuati daily. Branch on inhaler Rinse mouth after each use. azelastine 2020-02 Yes [id number] 1{spray Use 1 [facility] 137 mcg 2-02 } [place] in ity of (0.1 %) 00:00: each [place] nasal spray 00 nostril 2 Med ical (two) Branch times daily. Use in each nostril as directed fluticasone 2020-02 Yes [id number] 2{puff} Inhale 2 [facility] propionate 2-02 Puffs 2 ity of (FLOVENT 00:00: (two) [place] [facility]FA) 44 00 times Medical mcg/actuati daily. Branch on inhaler Rinse mouth after each use. azelastine 2020-02 Yes [id number] 1{spray Use 1 [facility] 137 mcg 2-02 } [place] in ity of (0.1 %) 00:00: each [place] nasal spray 00 nostril 2 Med ical (two) Branch times daily. Use in each nostril as directed fluticasone 2020-02 Yes [id number] 2{puff} Inhale 2 [facility] propionate 2-02 Puffs 2 ity of (FLOVENT 00:00: (two) [place] [facility]FA) 44 00 times Medical mcg/actuati daily. Branch on inhaler Rinse mouth after each use. azelastine 2020-02 Yes [id number] 1{spray Use 1 [facility] 137 mcg 2-02 } [place] in ity of (0.1 %) 00:00: each [place] nasal spray 00 nostril 2 Med ical (two) Branch times daily. Use in each nostril as directed fluticasone 2020-02 Yes [id number] 2{puff} Inhale 2 [facility] propionate 2-02 Puffs 2 ity of (FLOVENT 00:00: (two) [place] [facility]FA) 44 00 times Medical mcg/actuati daily. Branch on inhaler Rinse mouth after each use. azelastine 2020-02 Yes [id number] 1{spray Use 1 [facility] 137 mcg 2-02 } [place] in ity of (0.1 %) 00:00: each [place] nasal spray 00 nostril 2 Med ical (two) Branch times daily. Use in each nostril as directed fluticasone 2020-02 Yes [id number] 2{puff} Inhale 2 [facility] propionate 2-02 Puffs 2 ity of (FLOVENT 00:00: (two) [place] [facility]FA) 44 00 times Medical mcg/actuati daily. Branch on inhaler Rinse mouth after each use. azelastine 2020-02 Yes [id number] 1{spray Use 1 [facility] 137 mcg 2-02 } [place] in ity of (0.1 %) 00:00: each [place] nasal spray 00 nostril 2 Med ical (two) Branch times daily. Use in each nostril as directed fluticasone 2020-02 Yes [id number] 2{puff} Inhale 2 [facility] propionate 2-02 Puffs 2 ity of (FLOVENT 00:00: (two) [place] [facility]FA) 44 00 times Medical mcg/actuati daily. Branch on inhaler Rinse mouth after each use. azelastine 2020-02 Yes [id number] 1{spray Use 1 [facility] 137 mcg 2-02 } [place] in ity of (0.1 %) 00:00: each [place] nasal spray 00 nostril 2 Med ical (two) Branch times daily. Use in each nostril as directed fluticasone 2020-02 Yes [id number] 2{puff} Inhale 2 [facility] propionate 2-02 Puffs 2 ity of (FLOVENT 00:00: (two) [place] [facility]FA) 44 00 times Medical mcg/actuati daily. Branch on inhaler Rinse mouth after each use. azelastine 2020-02 Yes [id number] 1{spray Use 1 [facility] 137 mcg 2-02 } [place] in ity of (0.1 %) 00:00: each [place] nasal spray 00 nostril 2 Med ical (two) Branch times daily. Use in each nostril as directed fluticasone 2020-02 Yes [id number] 2{puff} Inhale 2 [facility] propionate 2-02 Puffs 2 ity of (FLOVENT 00:00: (two) [place] [facility]FA) 44 00 times Medical mcg/actuati daily. Branch on inhaler Rinse mouth after each use. azelastine 2020-02 Yes [id number] 1{spray Use 1 [facility] 137 mcg 2-02 } [place] in ity of (0.1 %) 00:00: each [place] nasal spray 00 nostril 2 Med ical (two) Branch times daily. Use in each nostril as directed fluticasone 2020-02 Yes [id number] 2{puff} Inhale 2 [facility] propionate 2-02 Puffs 2 ity of (FLOVENT 00:00: (two) [place] [facility]) 44 00 times Medical mcg/actuati daily. Branch on inhaler Rinse mouth after each use. azelastine 2020-02 Yes [id number] 1{spray Use 1 [facility] 137 mcg 2-02 } [place] in ity of (0.1 %) 00:00: each [place] nasal spray 00 nostril 2 Med ical (two) Branch times daily. Use in each nostril as directed fluticasone 2020-02 Yes [id number] 2{puff} Inhale 2 [facility] propionate 2-02 Puffs 2 ity of (FLOVENT 00:00: (two) [place] [facility]FA) 44 00 times Medical mcg/actuati daily. Branch on inhaler Rinse mouth after each use. azelastine 2020-02 Yes [id number] 1{spray Use 1 [facility] 137 mcg 2-02 } [place] in ity of (0.1 %) 00:00: each [place] nasal spray 00 nostril 2 Med ical (two) Branch times daily. Use in each nostril as directed fluticasone 2020-02 Yes [id number] 2{puff} Inhale 2 [facility] propionate 2-02 Puffs 2 ity of (FLOVENT 00:00: (two) [place] [facility]FA) 44 00 times Medical mcg/actuati daily. Branch on inhaler Rinse mouth after each use. azelastine 2020-02 Yes [id number] 1{spray Use 1 [facility] 137 mcg 2-02 } [place] in ity of (0.1 %) 00:00: each [place] nasal spray 00 nostril 2 Med ical (two) Branch times daily. Use in each nostril as directed fluticasone 2020-02 Yes [id number] 2{puff} Inhale 2 [facility] propionate 2-02 Puffs 2 ity of (FLOVENT 00:00: (two) [place] [facility]FA) 44 00 times Medical mcg/actuati daily. Branch on inhaler Rinse mouth after each use. azelastine 2020-02 Yes [id number] 1{spray Use 1 [facility] 137 mcg 2-02 } [place] in ity of (0.1 %) 00:00: each [place] nasal spray 00 nostril 2 Med ical (two) Branch times daily. Use in each nostril as directed fluticasone 2020-02 Yes [id number] 2{puff} Inhale 2 [facility] propionate 2-02 Puffs 2 ity of (FLOVENT 00:00: (two) [place] [facility]) 44 00 times Medical mcg/actuati daily. Branch on inhaler Rinse mouth after each use. azelastine 2020-02 Yes [id number] 1{spray Use 1 [facility] 137 mcg 2-02 } [place] in ity of (0.1 %) 00:00: each [place] nasal spray 00 nostril 2 Med ical (two) Branch times daily. Use in each nostril as directed fluticasone 2020-02 Yes [id number] 2{puff} Inhale 2 [facility] propionate 2-02 Puffs 2 ity of (FLOVENT 00:00: (two) [place] [facility]) 44 00 times Medical mcg/actuati daily. Branch on inhaler Rinse mouth after each use. azelastine 2020-02 Yes [id number] 1{spray Use 1 [facility] 137 mcg 2-02 } [place] in ity of (0.1 %) 00:00: each [place] nasal spray 00 nostril 2 Med ical (two) Branch times daily. Use in each nostril as directed fluticasone 2020-02 Yes [id number] 2{puff} Inhale 2 [facility] propionate 2-02 Puffs 2 ity of (FLOVENT 00:00: (two) [place] [facility]) 44 00 times Medical mcg/actuati daily. Branch on inhaler Rinse mouth after each use. azelastine 2020-02 Yes [id number] 1{spray Use 1 [facility] 137 mcg 2-02 } [place] in ity of (0.1 %) 00:00: each [place] nasal spray 00 nostril 2 Med ical (two) Branch times daily. Use in each nostril as directed fluticasone 2020-02 Yes [id number] 2{puff} Inhale 2 [facility] propionate 2-02 Puffs 2 ity of (FLOVENT 00:00: (two) [place] [facility]) 44 00 times Medical mcg/actuati daily. Branch on inhaler Rinse mouth after each use. azelastine 2020-02 Yes [id number] 1{spray Use 1 [facility] 137 mcg 2-02 } [place] in ity of (0.1 %) 00:00: each [place] nasal spray 00 nostril 2 Med ical (two) Branch times daily. Use in each nostril as directed fluticasone 2020-02 Yes [id number] 2{puff} Inhale 2 [facility] propionate 2-02 Puffs 2 ity of (FLOVENT 00:00: (two) [place] [facility]) 44 00 times Medical mcg/actuati daily. Branch on inhaler Rinse mouth after each use. azelastine 2020-02 Yes [id number] 1{spray Use 1 [facility] 137 mcg 2-02 } [place] in ity of (0.1 %) 00:00: each [place] nasal spray 00 nostril 2 Med ical (two) Branch times daily. Use in each nostril as directed fluticasone 2020-02 Yes [id number] 2{puff} Inhale 2 [facility] propionate 2-02 Puffs 2 ity of (FLOVENT 00:00: (two) [place] [facility]) 44 00 times Medical mcg/actuati daily. Branch on inhaler Rinse mouth after each use. azelastine 2020-02 Yes [id number] 1{spray Use 1 [facility] 137 mcg 2-02 } [place] in ity of (0.1 %) 00:00: each [place] nasal spray 00 nostril 2 Med ical (two) Branch times daily. Use in each nostril as directed fluticasone 2020-02 Yes [id number] 2{puff} Inhale 2 [facility] propionate 2-02 Puffs 2 ity of (FLOVENT 00:00: (two) [place] [facility]FA) 44 00 times Medical mcg/actuati daily. Branch on inhaler Rinse mouth after each use. azelastine 2020-02 Yes [id number] 1{spray Use 1 [facility] 137 mcg 2-02 } [place] in ity of (0.1 %) 00:00: each [place] nasal spray 00 nostril 2 Med ical (two) Branch times daily. Use in each nostril as directed fluticasone 2020-02 Yes [id number] 2{puff} Inhale 2 [facility] propionate 2-02 Puffs 2 ity of (FLOVENT 00:00: (two) [place] [facility]FA) 44 00 times Medical mcg/actuati daily. Branch on inhaler Rinse mouth after each use. azelastine 2020-02 Yes [id number] 1{spray Use 1 [facility] 137 mcg 2-02 } [place] in ity of (0.1 %) 00:00: each [place] nasal spray 00 nostril 2 Med ical (two) Branch times daily. Use in each nostril as directed fluticasone 2020-02 Yes [id number] 2{puff} Inhale 2 [facility] propionate 2-02 Puffs 2 ity of (FLOVENT 00:00: (two) [place] [facility]FA) 44 00 times Medical mcg/actuati daily. Branch on inhaler Rinse mouth after each use. azelastine 2020-02 Yes [id number] 1{spray Use 1 [facility] 137 mcg 2-02 } [place] in ity of (0.1 %) 00:00: each [place] nasal spray 00 nostril 2 Med ical (two) Branch times daily. Use in each nostril as directed fluticasone 2020-02 Yes [id number] 2{puff} Inhale 2 [facility] propionate 2-02 Puffs 2 ity of (FLOVENT 00:00: (two) [place] [facility]FA) 44 00 times Medical mcg/actuati daily. Branch on inhaler Rinse mouth after each use. azelastine 2020-02 Yes [id number] 1{spray Use 1 [facility] 137 mcg 2-02 } [place] in ity of (0.1 %) 00:00: each [place] nasal spray 00 nostril 2 Med ical (two) Branch times daily. Use in each nostril as directed fluticasone 2020-02 Yes [id number] 2{puff} Inhale 2 [facility] propionate 2-02 Puffs 2 ity of (FLOVENT 00:00: (two) [place] [facility]FA) 44 00 times Medical mcg/actuati daily. Branch on inhaler Rinse mouth after each use. azelastine 2020-02 Yes [id number] 1{spray Use 1 [facility] 137 mcg 2-02 } [place] in ity of (0.1 %) 00:00: each [place] nasal spray 00 nostril 2 Med ical (two) Branch times daily. Use in each nostril as directed fluticasone 2020-02 Yes [id number] 2{puff} Inhale 2 [facility] propionate 2-02 Puffs 2 ity of (FLOVENT 00:00: (two) [place] [facility]FA) 44 00 times Medical mcg/actuati daily. Branch on inhaler Rinse mouth after each use. azelastine 2020-02 Yes [id number] 1{spray Use 1 [facility] 137 mcg 2-02 } [place] in ity of (0.1 %) 00:00: each [place] nasal spray 00 nostril 2 Med ical (two) Branch times daily. Use in each nostril as directed fluticasone 2020-02 Yes [id number] 2{puff} Inhale 2 [facility] propionate 2-02 Puffs 2 ity of (FLOVENT 00:00: (two) [place] [facility]FA) 44 00 times Medical mcg/actuati daily. Branch on inhaler Rinse mouth after each use. azelastine 2020-02 Yes [id number] 1{spray Use 1 [facility] 137 mcg 2-02 } [place] in ity of (0.1 %) 00:00: each [place] nasal spray 00 nostril 2 Med ical (two) Branch times daily. Use in each nostril as directed fluticasone 2020-02 Yes [id number] 2{puff} Inhale 2 [facility] propionate 2-02 Puffs 2 ity of (FLOVENT 00:00: (two) [place] [facility]FA) 44 00 times Medical mcg/actuati daily. Branch on inhaler Rinse mouth after each use. azelastine 2020-02 Yes [id number] 1{spray Use 1 [facility] 137 mcg 2-02 } [place] in ity of (0.1 %) 00:00: each [place] nasal spray 00 nostril 2 Med ical (two) Branch times daily. Use in each nostril as directed fluticasone 2020-02 Yes [id number] 2{puff} Inhale 2 [facility] propionate 2-02 Puffs 2 ity of (FLOVENT 00:00: (two) [place] [facility]FA) 44 00 times Medical mcg/actuati daily. Branch on inhaler Rinse mouth after each use. azelastine 2020-02 Yes [id number] 1{spray Use 1 [facility] 137 mcg 2-02 } [place] in ity of (0.1 %) 00:00: each [place] nasal spray 00 nostril 2 Med ical (two) Branch times daily. Use in each nostril as directed fluticasone 2020-02 Yes [id number] 2{puff} Inhale 2 [facility] propionate 2-02 Puffs 2 ity of (FLOVENT 00:00: (two) [place] [facility]FA) 44 00 times Medical mcg/actuati daily. Branch on inhaler Rinse mouth after each use. azelastine 2020-02 Yes [id number] 1{spray Use 1 [facility] 137 mcg 2-02 } [place] in ity of (0.1 %) 00:00: each [place] nasal spray 00 nostril 2 Med ical (two) Branch times daily. Use in each nostril as directed fluticasone 2020-02 Yes [id number] 2{puff} Inhale 2 [facility] propionate 2-02 Puffs 2 ity of (FLOVENT 00:00: (two) [place] [facility]FA) 44 00 times Medical mcg/actuati daily. Branch on inhaler Rinse mouth after each use. azelastine 2020-02 Yes [id number] 1{spray Use 1 [facility] 137 mcg 2-02 } [place] in ity of (0.1 %) 00:00: each [place] nasal spray 00 nostril 2 Med ical (two) Branch times daily. Use in each nostril as directed fluticasone 2020-02 Yes [id number] 2{puff} Inhale 2 [facility] propionate 2-02 Puffs 2 ity of (FLOVENT 00:00: (two) [place] HFA) 44 00 times Medical mcg/actuati daily. Branch on inhaler Rinse mouth after each use. mirtazapine 2020-02- No [id number] 7.5mg Take 1 [facility] 7.5 mg 2-02 07-15 tablet by ity of tablet 00:00: 00:00 mouth at [place] 00 :00 bedtime. Medical [facility] Magnesium 2020-02 Yes Take by [facility] 100 MG CAPS 1-10 mouth. [facility] 15:46: of 22 Medicin e Melatonin 2020-02 Yes Take by [facility] 10 MG TABS 1-[address] [facility] [place] 15:46: of 22 Medicin e oxybutynin 2020-02 [...] 10mg Take 1 [facility] (DITROPAN 1-10 - Tablet by Kristine spencer XL) 10 MG 00:00: 00:00 mouth of CR tablet 00 :00 daily. Medicin e albuterol Yes [id number] 2{puff} Inhale 2 [facility] (PROAIR 9-03 Puffs ity of HFA) 90 00:00: every 6 [place] mcg/actuati 00 (six) Medical on inhaler hours as Branc h needed for Wheezing or Shortness of Breath. albuterol Yes [id number] 2{puff} Inhale 2 [facility] (PROAIR 9-03 Puffs ity of HFA) 90 00:00: every 6 [place] mcg/actuati 00 (six) Medical on inhaler hours as Branc h needed for Wheezing or Shortness of Breath. albuterol Yes [id number] 2{puff} Inhale 2 [facility] (PROAIR 9-03 Puffs ity of HFA) 90 00:00: every 6 [place] mcg/actuati 00 (six) Medical on inhaler hours as Branc h needed for Wheezing or Shortness of Breath. albuterol Yes [id number] 2{puff} Inhale 2 [facility] (PROAIR 9-03 Puffs ity of HFA) 90 00:00: every 6 [place] mcg/actuati 00 (six) Medical on inhaler hours as Branc h needed for Wheezing or Shortness of Breath. albuterol Yes [id number] 2{puff} Inhale 2 [facility] (PROAIR 9-03 Puffs ity of HFA) 90 00:00: every 6 [place] mcg/actuati 00 (six) Medical on inhaler hours as Branc h needed for Wheezing or Shortness of Breath. albuterol Yes [id number] 2{puff} Inhale 2 [facility] (PROAIR 9-03 Puffs ity of HFA) 90 00:00: every 6 [place] mcg/actuati 00 (six) Medical on inhaler hours as Branc h needed for Wheezing or Shortness of Breath. albuterol 0 Yes [id number] 2{puff} Inhale 2 [facility] (PROAIR 9-03 Puffs ity of HFA) 90 00:00: every 6 [place] mcg/actuati 00 (six) Medical on inhaler hours as Branc h needed for Wheezing or Shortness of Breath. albuterol Yes [id number] 2{puff} Inhale 2 [facility] (PROAIR 9-03 Puffs ity of HFA) 90 00:00: every 6 [place] mcg/actuati 00 (six) Medical on inhaler hours as Branc h needed for Wheezing or Shortness of Breath. albuterol Yes [id number] 2{puff} Inhale 2 [facility] (PROAIR 9-03 Puffs ity of HFA) 90 00:00: every 6 [place] mcg/actuati 00 (six) Medical on inhaler hours as Branc h needed for Wheezing or Shortness of Breath. albuterol 0 Yes [id number] 2{puff} Inhale 2 [facility] (PROAIR 9-03 Puffs ity of HFA) 90 00:00: every 6 [place] mcg/actuati 00 (six) Medical on inhaler hours as Branc h needed for Wheezing or Shortness of Breath. albuterol 0 Yes [id number] 2{puff} Inhale 2 [facility] (PROAIR 9-03 Puffs ity of HFA) 90 00:00: every 6 [place] mcg/actuati 00 (six) Medical on inhaler hours as Branc h needed for Wheezing or Shortness of Breath. albuterol 0 Yes [id number] 2{puff} Inhale 2 [facility] (PROAIR 9-03 Puffs ity of HFA) 90 00:00: every 6 [place] mcg/actuati 00 (six) Medical on inhaler hours as Branc h needed for Wheezing or Shortness of Breath. albuterol Yes [id number] 2{puff} Inhale 2 [facility] (PROAIR 9-03 Puffs ity of HFA) 90 00:00: every 6 [place] mcg/actuati 00 (six) Medical on inhaler hours as Branc h needed for Wheezing or Shortness of Breath. albuterol Yes [id number] 2{puff} Inhale 2 [facility] (PROAIR 9-03 Puffs ity of HFA) 90 00:00: every 6 [place] mcg/actuati 00 (six) Medical on inhaler hours as Branc h needed for Wheezing or Shortness of Breath. albuterol Yes [id number] 2{puff} Inhale 2 [facility] (PROAIR 9-03 Puffs ity of HFA) 90 00:00: every 6 [place] mcg/actuati 00 (six) Medical on inhaler hours as Branc h needed for Wheezing or Shortness of Breath. albuterol Yes [id number] 2{puff} Inhale 2 [facility] (PROAIR 9-03 Puffs ity of HFA) 90 00:00: every 6 [place] mcg/actuati 00 (six) Medical on inhaler hours as Branc h needed for Wheezing or Shortness of Breath. albuterol Yes [id number] 2{puff} Inhale 2 [facility] (PROAIR 9-03 Puffs ity of HFA) 90 00:00: every 6 [place] mcg/actuati 00 (six) Medical on inhaler hours as Branc h needed for Wheezing or Shortness of Breath. albuterol Yes [id number] 2{puff} Inhale 2 [facility] (PROAIR 9-03 Puffs ity of HFA) 90 00:00: every 6 [place] mcg/actuati 00 (six) Medical on inhaler hours as Branc h needed for Wheezing or Shortness of Breath. albuterol Yes [id number] 2{puff} Inhale 2 [facility] (PROAIR 9-03 Puffs ity of HFA) 90 00:00: every 6 [place] mcg/actuati 00 (six) Medical on inhaler hours as Branc h needed for Wheezing or Shortness of Breath. albuterol Yes [id number] 2{puff} Inhale 2 [facility] (PROAIR 9-03 Puffs ity of HFA) 90 00:00: every 6 [place] mcg/actuati 00 (six) Medical on inhaler hours as Branc h needed for Wheezing or Shortness of Breath. albuterol Yes [id number] 2{puff} Inhale 2 [facility] (PROAIR 9-03 Puffs ity of HFA) 90 00:00: every 6 [place] mcg/actuati 00 (six) Medical on inhaler hours as Branc h needed for Wheezing or Shortness of Breath. albuterol Yes [id number] 2{puff} Inhale 2 [facility] (PROAIR 9-03 Puffs ity of HFA) 90 00:00: every 6 [place] mcg/actuati 00 (six) Medical on inhaler hours as Branc h needed for Wheezing or Shortness of Breath. albuterol Yes [id number] 2{puff} Inhale 2 [facility] (PROAIR 9-03 Puffs ity of HFA) 90 00:00: every 6 [place] mcg/actuati 00 (six) Medical on inhaler hours as Branc h needed for Wheezing or Shortness of Breath. albuterol Yes [id number] 2{puff} Inhale 2 [facility] (PROAIR 9-03 Puffs ity of HFA) 90 00:00: every 6 [place] mcg/actuati 00 (six) Medical on inhaler hours as Branc h needed for Wheezing or Shortness of Breath. albuterol Yes [id number] 2{puff} Inhale 2 [facility] (PROAIR 9-03 Puffs ity of HFA) 90 00:00: every 6 [place] mcg/actuati 00 (six) Medical on inhaler hours as Branc h needed for Wheezing or Shortness of Breath. albuterol Yes [id number] 2{puff} Inhale 2 [facility] (PROAIR 9-03 Puffs ity of HFA) 90 00:00: every 6 [place] mcg/actuati 00 (six) Medical on inhaler hours as Branc h needed for Wheezing or Shortness of Breath. albuterol Yes [id number] 2{puff} Inhale 2 [facility] (PROAIR 9-03 Puffs ity of HFA) 90 00:00: every 6 [place] mcg/actuati 00 (six) Medical on inhaler hours as Branc h needed for Wheezing or Shortness of Breath. albuterol Yes [id number] 2{puff} Inhale 2 [facility] (PROAIR 9-03 Puffs ity of HFA) 90 00:00: every 6 [place] mcg/actuati 00 (six) Medical on inhaler hours as Branc h needed for Wheezing or Shortness of Breath. albuterol 0 Yes [id number] 2{puff} Inhale 2 [facility] (PROAIR 9-03 Puffs ity of HFA) 90 00:00: every 6 [place] mcg/actuati 00 (six) Medical on inhaler hours as Branc h needed for Wheezing or Shortness of Breath. albuterol Yes [id number] 2{puff} Inhale 2 [facility] (PROAIR 9-03 Puffs ity of HFA) 90 00:00: every 6 [place] mcg/actuati 00 (six) Medical on inhaler hours as Branc h needed for Wheezing or Shortness of Breath. albuterol Yes [id number] 2{puff} Inhale 2 [facility] (PROAIR 9-03 Puffs ity of HFA) 90 00:00: every 6 [place] mcg/actuati 00 (six) Medical on inhaler hours as Branc h needed for Wheezing or Shortness of Breath. albuterol Yes [id number] 2{puff} Inhale 2 [facility] (PROAIR 9-03 Puffs ity of HFA) 90 00:00: every 6 [place] mcg/actuati 00 (six) Medical on inhaler hours as Branc h needed for Wheezing or Shortness of Breath. albuterol Yes [id number] 2{puff} Inhale 2 [facility] (PROAIR 9-03 Puffs ity of HFA) 90 00:00: every 6 [place] mcg/actuati 00 (six) Medical on inhaler hours as Branc h needed for Wheezing or Shortness of Breath. albuterol Yes [id number] 2{puff} Inhale 2 [facility] (PROAIR 9-03 Puffs ity of HFA) 90 00:00: every 6 [place] mcg/actuati 00 (six) Medical on inhaler hours as Branc h needed for Wheezing or Shortness of Breath. albuterol 0 Yes [id number] 2{puff} Inhale 2 [facility] (PROAIR 9-03 Puffs ity of HFA) 90 00:00: every 6 [place] mcg/actuati 00 (six) Medical on inhaler hours as Branc h needed for Wheezing or Shortness of Breath. albuterol 0 Yes [id number] 2{puff} Inhale 2 [facility] (PROAIR 9-03 Puffs ity of HFA) 90 00:00: every 6 [place] mcg/actuati 00 (six) Medical on inhaler hours as Branc h needed for Wheezing or Shortness of Breath. albuterol Yes [id number] 2{puff} Inhale 2 [facility] (PROAIR 9-03 Puffs ity of HFA) 90 00:00: every 6 [place] mcg/actuati 00 (six) Medical on inhaler hours as Branc h needed for Wheezing or Shortness of Breath. albuterol Yes [id number] 2{puff} Inhale 2 [facility] (PROAIR 9-03 Puffs ity of HFA) 90 00:00: every 6 [place] mcg/actuati 00 (six) Medical on inhaler hours as Branc h needed for Wheezing or Shortness of Breath. albuterol 0 Yes [id number] 2{puff} Inhale 2 [facility] (PROAIR 9-03 Puffs ity of HFA) 90 00:00: every 6 [place] mcg/actuati 00 (six) Medical on inhaler hours as Branc h needed for Wheezing or Shortness of Breath. albuterol 0 Yes [id number] 2{puff} Inhale 2 [facility] (PROAIR 9-03 Puffs ity of HFA) 90 00:00: every 6 [place] mcg/actuati 00 (six) Medical on inhaler hours as Branc h needed for Wheezing or Shortness of Breath. albuterol 0 Yes [id number] 2{puff} Inhale 2 [facility] (PROAIR 9-03 Puffs ity of HFA) 90 00:00: every 6 [place] mcg/actuati 00 (six) Medical on inhaler hours as Branc h needed for Wheezing or Shortness of Breath. albuterol Yes [id number] 2{puff} Inhale 2 [facility] (PROAIR 9-03 Puffs ity of HFA) 90 00:00: every 6 [place] mcg/actuati 00 (six) Medical on inhaler hours as Branc h needed for Wheezing or Shortness of Breath. albuterol Yes [id number] 2{puff} Inhale 2 [facility] (PROAIR 9-03 Puffs ity of HFA) 90 00:00: every 6 [place] mcg/actuati 00 (six) Medical on inhaler hours as Branc h needed for Wheezing or Shortness of Breath. albuterol Yes [id number] 2{puff} Inhale 2 [facility] (PROAIR 9-03 Puffs ity of HFA) 90 00:00: every 6 [place] mcg/actuati 00 (six) Medical on inhaler hours as Branc h needed for Wheezing or Shortness of Breath. albuterol Yes [id number] 2{puff} Inhale 2 [facility] (PROAIR 9-03 Puffs ity of HFA) 90 00:00: every 6 [place] mcg/actuati 00 (six) Medical on inhaler hours as Branc h needed for Wheezing or Shortness of Breath. albuterol Yes [id number] 2{puff} Inhale 2 [facility] (PROAIR 9-03 Puffs ity of HFA) 90 00:00: every 6 [place] mcg/actuati 00 (six) Medical on inhaler hours as Branc h needed for Wheezing or Shortness of Breath. albuterol Yes [id number] 2{puff} Inhale 2 [facility] (PROAIR 9-03 Puffs ity of HFA) 90 00:00: every 6 [place] mcg/actuati 00 (six) Medical on inhaler hours as Branc h needed for Wheezing or Shortness of Breath. albuterol Yes [id number] 2{puff} Inhale 2 [facility] (PROAIR 9-03 Puffs ity of HFA) 90 00:00: every 6 [place] mcg/actuati 00 (six) Medical on inhaler hours as Branc h needed for Wheezing or Shortness of Breath. albuterol Yes [id number] 2{puff} Inhale 2 [facility] (PROAIR 9-03 Puffs ity of HFA) 90 00:00: every 6 [place] mcg/actuati 00 (six) Medical on inhaler hours as Branc h needed for Wheezing or Shortness of Breath. albuterol Yes [id number] 2{puff} Inhale 2 [facility] (PROAIR 9-03 Puffs ity of HFA) 90 00:00: every 6 [place] mcg/actuati 00 (six) Medical on inhaler hours as Branc h needed for Wheezing or Shortness of Breath. albuterol Yes [id number] 2{puff} Inhale 2 [facility] (PROAIR 9-03 Puffs ity of HFA) 90 00:00: every 6 [place] mcg/actuati 00 (six) Medical on inhaler hours as Branc h needed for Wheezing or Shortness of Breath. albuterol Yes [id number] 2{puff} Inhale 2 [facility] (PROAIR 9-03 Puffs ity of HFA) 90 00:00: every 6 [place] mcg/actuati 00 (six) Medical on inhaler hours as Branc h needed for Wheezing or Shortness of Breath. albuterol Yes [id number] 2{puff} Inhale 2 [facility] (PROAIR 9-03 Puffs ity of HFA) 90 00:00: every 6 [place] mcg/actuati 00 (six) Medical on inhaler hours as Branc h needed for Wheezing or Shortness of Breath. albuterol Yes [id number] 2{puff} Inhale 2 [facility] (PROAIR 9-03 Puffs ity of HFA) 90 00:00: every 6 [place] mcg/actuati 00 (six) Medical on inhaler hours as Branc h needed for Wheezing or Shortness of Breath. albuterol Yes [id number] 2{puff} Inhale 2 [facility] (PROAIR 9-03 Puffs ity of HFA) 90 00:00: every 6 [place] mcg/actuati 00 (six) Medical on inhaler hours as Branc h needed for Wheezing or Shortness of Breath. albuterol Yes [id number] 2{puff} Inhale 2 [facility] (PROAIR 9-03 Puffs ity of HFA) 90 00:00: every 6 [place] mcg/actuati 00 (six) Medical on inhaler hours as Branc h needed for Wheezing or Shortness of Breath. albuterol Yes [id number] 2{puff} Inhale 2 [facility] (PROAIR 9-03 Puffs ity of HFA) 90 00:00: every 6 [place] mcg/actuati 00 (six) Medical on inhaler hours as Branc h needed for Wheezing or Shortness of Breath. albuterol Yes [id number] 2{puff} Inhale 2 [facility] (PROAIR 9-03 Puffs ity of HFA) 90 00:00: every 6 [place] mcg/actuati 00 (six) Medical on inhaler hours as Branc h needed for Wheezing or Shortness of Breath. albuterol Yes [id number] 2{puff} Inhale 2 [facility] (PROAIR 9-03 Puffs ity of HFA) 90 00:00: every 6 [place] mcg/actuati 00 (six) Medical on inhaler hours as Branc h needed for Wheezing or Shortness of Breath. albuterol Yes [id number] 2{puff} Inhale 2 [facility] (PROAIR 9-03 Puffs ity of HFA) 90 00:00: every 6 [place] mcg/actuati 00 (six) Medical on inhaler hours as Branc h needed for Wheezing or Shortness of Breath. albuterol Yes [id number] 2{puff} Inhale 2 [facility] (PROAIR 9-03 Puffs ity of HFA) 90 00:00: every 6 [place] mcg/actuati 00 (six) Medical on inhaler hours as Branc h needed for Wheezing or Shortness of Breath. albuterol Yes [id number] 2{puff} Inhale 2 [facility] (PROAIR 9-03 Puffs ity of HFA) 90 00:00: every 6 [place] mcg/actuati 00 (six) Medical on inhaler hours as Branc h needed for Wheezing or Shortness of Breath. albuterol Yes [id number] 2{puff} Inhale 2 [facility] (PROAIR 9-03 Puffs ity of HFA) 90 00:00: every 6 [place] mcg/actuati 00 (six) Medical on inhaler hours as Branc h needed for Wheezing or Shortness of Breath. albuterol 0 Yes [id number] 2{puff} Inhale 2 [facility] (PROAIR 9-03 Puffs ity of HFA) 90 00:00: every 6 [place] mcg/actuati 00 (six) Medical on inhaler hours as Branc h needed for Wheezing or Shortness of Breath. albuterol 0 Yes [id number] 2{puff} Inhale 2 [facility] (PROAIR 9-03 Puffs ity of HFA) 90 00:00: every 6 [place] mcg/actuati 00 (six) Medical on inhaler hours as Branc h needed for Wheezing or Shortness of Breath. albuterol Yes [id number] 2{puff} Inhale 2 [facility] (PROAIR 9-03 Puffs ity of HFA) 90 00:00: every 6 [place] mcg/actuati 00 (six) Medical on inhaler hours as Branc h needed for Wheezing or Shortness of Breath. albuterol Yes [id number] 2{puff} Inhale 2 [facility] (PROAIR 9-03 Puffs ity of HFA) 90 00:00: every 6 [place] mcg/actuati 00 (six) Medical on inhaler hours as Branc h needed for Wheezing or Shortness of Breath. albuterol 0 Yes [id number] 2{puff} Inhale 2 [facility] (PROAIR 9-03 Puffs ity of HFA) 90 00:00: every 6 [place] mcg/actuati 00 (six) Medical on inhaler hours as Branc h needed for Wheezing or Shortness of Breath. albuterol 0 Yes [id number] 2{puff} Inhale 2 [facility] (PROAIR 9-03 Puffs ity of HFA) 90 00:00: every 6 [place] mcg/actuati 00 (six) Medical on inhaler hours as Branc h needed for Wheezing or Shortness of Breath. albuterol 0 Yes [id number] 2{puff} Inhale 2 [facility] (PROAIR 9-03 Puffs ity of HFA) 90 00:00: every 6 [place] mcg/actuati 00 (six) Medical on inhaler hours as Branc h needed for Wheezing or Shortness of Breath. albuterol Yes [id number] 2{puff} Inhale 2 [facility] (PROAIR 9-03 Puffs ity of HFA) 90 00:00: every 6 [place] mcg/actuati 00 (six) Medical on inhaler hours as Branc h needed for Wheezing or Shortness of Breath. albuterol Yes [id number] 2{puff} Inhale 2 [facility] (PROAIR 9-03 Puffs ity of HFA) 90 00:00: every 6 [place] mcg/actuati 00 (six) Medical on inhaler hours as Branc h needed for Wheezing or Shortness of Breath. albuterol Yes [id number] 2{puff} Inhale 2 [facility] (PROAIR 9-03 Puffs ity of HFA) 90 00:00: every 6 [place] mcg/actuati 00 (six) Medical on inhaler hours as Branc h needed for Wheezing or Shortness of Breath. albuterol Yes [id number] 2{puff} Inhale 2 [facility] (PROAIR 9-03 Puffs ity of HFA) 90 00:00: every 6 [place] mcg/actuati 00 (six) Medical on inhaler hours as Branc h needed for Wheezing or Shortness of Breath. albuterol Yes [id number] 2{puff} Inhale 2 [facility] (PROAIR 9-03 Puffs ity of HFA) 90 00:00: every 6 [place] mcg/actuati 00 (six) Medical on inhaler hours as Branc h needed for Wheezing or Shortness of Breath. albuterol Yes [id number] 2{puff} Inhale 2 [facility] (PROAIR 9-03 Puffs ity of HFA) 90 00:00: every 6 [place] mcg/actuati 00 (six) Medical on inhaler hours as Branc h needed for Wheezing or Shortness of Breath. albuterol Yes [id number] 2{puff} Inhale 2 [facility] (PROAIR 9-03 Puffs ity of HFA) 90 00:00: every 6 [place] mcg/actuati 00 (six) Medical on inhaler hours as Branc h needed for Wheezing or Shortness of Breath. albuterol Yes [id number] 2{puff} Inhale 2 [facility] (PROAIR 9-03 Puffs ity of HFA) 90 00:00: every 6 [place] mcg/actuati 00 (six) Medical on inhaler hours as Branc h needed for Wheezing or Shortness of Breath. albuterol Yes [id number] 2{puff} Inhale 2 [facility] (PROAIR 9-03 Puffs ity of HFA) 90 00:00: every 6 [place] mcg/actuati 00 (six) Medical on inhaler hours as Branc h needed for Wheezing or Shortness of Breath. albuterol Yes [id number] 2{puff} Inhale 2 [facility] (PROAIR 9-03 Puffs ity of HFA) 90 00:00: every 6 [place] mcg/actuati 00 (six) Medical on inhaler hours as Branc h needed for Wheezing or Shortness of Breath. albuterol Yes [id number] 2{puff} Inhale 2 [facility] (PROAIR 9-03 Puffs ity of HFA) 90 00:00: every 6 [place] mcg/actuati 00 (six) Medical on inhaler hours as Branc h needed for Wheezing or Shortness of Breath. albuterol Yes [id number] 2{puff} Inhale 2 [facility] (PROAIR 9-03 Puffs ity of HFA) 90 00:00: every 6 [place] mcg/actuati 00 (six) Medical on inhaler hours as Branc h needed for Wheezing or Shortness of Breath. albuterol Yes [id number] 2{puff} Inhale 2 [facility] (PROAIR 9-03 Puffs ity of HFA) 90 00:00: every 6 [place] mcg/actuati 00 (six) Medical on inhaler hours as Branc h needed for Wheezing or Shortness of Breath. albuterol Yes [id number] 2{puff} Inhale 2 [facility] (PROAIR 9-03 Puffs ity of HFA) 90 00:00: every 6 [place] mcg/actuati 00 (six) Medical on inhaler hours as Branc h needed for Wheezing or Shortness of Breath. amLODIPine 0 2021- No [id number] 2.5mg Take 1 [facility] 2.5 mg 07-20 tablet by ity of tablet 00:00: 00:00 mouth [place] 00 :00 daily. [facility] Branch amLODIPine 2021- No [id number] 2.5mg Take 1 [facility] 2.5 mg 07-20 tablet by ity of tablet 00:00: 00:00 mouth [place] 00 :00 daily. Medical Branch hydroCHLORO 2021- No [id number] 25mg Take 1 [facility] thiazide 25 07-20 tablet by it y of mg tablet 00:00: 00:00 mouth [place] 00 :00 daily. [facility] hydrochloro 2020- No 25mg Take 25 mg [facility] thiazide 3-22 -22 by mouth Colleg [facility] (HYDRODIURI 16:58: 00:00 daily. of L) 25 MG 25 :00 Medicin tablet e Magnesium Yes Take by [facility] 100 MG CAPS 3-22 mouth. Colleg [facility] 15:58: of 46 Medicin e Melatonin Yes Take by [facility] 10 MG TABS -[address] [facility] [place] 15:58: of 46 Medicin e hydrochloro Yes [...] tablet e Potassium Yes Take 2 [facility] Citrate 3-22 tablets PO Colleg e (UROCIT-K 00:00: TID of 10) 10 MEQ 00 Medicin (1080 MG) e TBCR hydrochloro Yes 25mg Take 1 [facility] thiazide 3-22 Tablet by [facility] (HYDRODIURI 00:00: mouth of L) 25 MG 00 daily. Medicin tablet e Potassium Yes Take 2 [facility] Citrate 3-22 tablets PO Colleg e (UROCIT-K 00:00: TID of 10) 10 MEQ 00 Medicin (1080 MG) e TBCR oxybutynin Yes 10mg Take 1 [facility] (DITROPAN 3-22 Tablet by Shanda ge XL) 10 MG 00:00: mouth of CR tablet 00 daily. Medicin e hydrochloro 2021- No 25mg Take 1 [place] [facility] thiazide 3-22 -19 Tablet by Sh[facility] (HYDRODIURI 00:00: 00:00 mouth of L) 25 MG 00 :00 daily. Medicin tablet e Potassium 2021- No Take 2 [facility] Citrate 3-22 -19 tablets PO Shanda ge (UROCIT-K 00:00: 00:00 TID of 10) 10 MEQ 00 :00 Medicin (1080 MG) e TBCR oxybutynin 2020- No 10mg Take 1 [facility] (DITROPAN 3-22 11-10 Tablet by Kristine spencer XL) 10 MG 00:00: 00:00 mouth of CR tablet 00 :00 daily. Medicin e hydrochloro 2019-02 Yes 25mg Take 25 mg [facility] thiazide 1-[address] [facility] [place] (HYDRODIURI 17:00: daily. of L) 25 MG 06 Medicin tablet e Magnesium 2019-02 Yes Take by [facility] 100 MG CAPS 1-23 mouth. Colleg [facility] 17:00: of 06 Medicin e Melatonin 2019-02 Yes Take by [facility] 10 MG TABS -[address] [facility] [place] 17:00: of 06 Medicin e Potassium 2019-02 [...] TBCR levothyroxi 2019-02 Yes 25ug Take 25 [place] [facility] ne 1-[address] [facility] (SYNTHROID) 00:00: mouth. of 25 MCG 00 Medicin tablet e levothyroxi 2019-02 Yes 25ug Take 25 [place] [facility] ne 1-[address] [facility] (SYNTHROID) 00:00: mouth. of 25 MCG 00 Medicin tablet e levothyroxi 2019-02- No 25ug Take 25 [facility]-02 11-[address] [facility] (SYNTHROID) 00:00: 00:00 mouth. of 25 MCG 00 :00 Medicin tablet e aspirin 81 2019-02 Yes [id number] 81mg Take 1 [facility] mg chewable 0-01 [id number] tablet by i ty of tablet 00:00: mouth [place] 00 daily. [facility] aspirin 81 2019-02 Yes [id number] 81mg Take 1 [facility] mg chewable 0-01 [id number] tablet by i ty of tablet 00:00: mouth [place] 00 daily. [facility] aspirin 81 2019-02 Yes [id number] 81mg Take 1 [facility] mg chewable 0-01 [id number] tablet by i ty of tablet 00:00: mouth [place] 00 daily. [facility] aspirin 81 2019-02 Yes [id number] 81mg Take 1 [facility] mg chewable 0-01 [id number] tablet by i ty of tablet 00:00: mouth [place] 00 daily. [facility] aspirin 81 2019-02 Yes [id number] 81mg Take 1 [facility] mg chewable 0-01 [id number] tablet by i ty of tablet 00:00: mouth [place] 00 daily. [facility] aspirin 81 2019- Yes [id number] 81mg Take 1 [facility] mg chewable 0-01 [id number] tablet by i ty of tablet 00:00: mouth [place] 00 daily. [facility] aspirin 81 2019-02 Yes [id number] 81mg Take 1 [facility] mg chewable 0-01 [id number] tablet by i ty of tablet 00:00: mouth [place] 00 daily. [facility] aspirin 81 2019- Yes [id number] 81mg Take 1 [facility] mg chewable 0-01 [id number] tablet by i ty of tablet 00:00: mouth [place] 00 daily. [facility] aspirin 81 2020- Yes [id number] 81mg Take 1 [facility] mg chewable 0-01 [id number] tablet by i ty of tablet 00:00: mouth [place] 00 daily. [facility] aspirin 81 2020- Yes [id number] 81mg Take 1 [facility] mg chewable 0-01 [id number] tablet by i ty of tablet 00:00: mouth [place] 00 daily. [facility] aspirin 81 2019- Yes [id number] 81mg Take 1 [facility] mg chewable 0-01 [id number] tablet by i ty of tablet 00:00: mouth [place] 00 daily. [facility] aspirin 81 2020- Yes [id number] 81mg Take 1 [facility] mg chewable 0-01 [id number] tablet by i ty of tablet 00:00: mouth [place] 00 daily. [facility] aspirin 81 2020- Yes [id number] 81mg Take 1 [facility] mg chewable 0-01 [id number] tablet by i ty of tablet 00:00: mouth [place] 00 daily. [facility] aspirin 81 2020- Yes [id number] 81mg Take 1 [facility] mg chewable 0-01 [id number] tablet by i ty of tablet 00:00: mouth [place] 00 daily. [facility] aspirin 81 2020- Yes [id number] 81mg Take 1 [facility] mg chewable 0-01 [id number] tablet by i ty of tablet 00:00: mouth [place] 00 daily. [facility] aspirin 81 2020- Yes [id number] 81mg Take 1 [facility] mg chewable 0-01 [id number] tablet by i ty of tablet 00:00: mouth [place] 00 daily. [facility] aspirin 81 2020- Yes [id number] 81mg Take 1 [facility] mg chewable 0-01 [id number] tablet by i ty of tablet 00:00: mouth [place] 00 daily. [facility] aspirin 81 2020- Yes [id number] 81mg Take 1 [facility] mg chewable 0-01 [id number] tablet by i ty of tablet 00:00: mouth [place] 00 daily. [facility] aspirin 81 2020- Yes [id number] 81mg Take 1 [facility] mg chewable 0-01 [id number] tablet by i ty of tablet 00:00: mouth [place] 00 daily. [facility] aspirin 81 2020- Yes [id number] 81mg Take 1 [facility] mg chewable 0-01 [id number] tablet by i ty of tablet 00:00: mouth [place] 00 daily. [facility] aspirin 81 2020- Yes [id number] 81mg Take 1 [facility] mg chewable 0-01 [id number] tablet by i ty of tablet 00:00: mouth [place] 00 daily. [facility] aspirin 81 2020- Yes [id number] 81mg Take 1 [facility] mg chewable 0-01 [id number] tablet by i ty of tablet 00:00: mouth [place] 00 daily. [facility] aspirin 81 2020- Yes [id number] 81mg Take 1 [facility] mg chewable 0-01 [id number] tablet by i ty of tablet 00:00: mouth [place] 00 daily. [facility] aspirin 81 2020- Yes [id number] 81mg Take 1 [facility] mg chewable 0-01 [id number] tablet by i ty of tablet 00:00: mouth [place] 00 daily. [facility] aspirin 81 2020- Yes [id number] 81mg Take 1 [facility] mg chewable 0-01 [id number] tablet by i ty of tablet 00:00: mouth [place] 00 daily. [facility] aspirin 81 2019- Yes [id number] 81mg Take 1 [facility] mg chewable 0-01 [id number] tablet by i ty of tablet 00:00: mouth [place] 00 daily. [facility] aspirin 81 2019- Yes [id number] 81mg Take 1 [facility] mg chewable 0-01 [id number] tablet by i ty of tablet 00:00: mouth [place] 00 daily. [facility] aspirin 81 2019- Yes [id number] 81mg Take 1 [facility] mg chewable 0-01 [id number] tablet by i ty of tablet 00:00: mouth [place] 00 daily. [facility] aspirin 81 2019- Yes [id number] 81mg Take 1 [facility] mg chewable 0-01 [id number] tablet by i ty of tablet 00:00: mouth [place] 00 daily. [facility] aspirin 81 2019- Yes [id number] 81mg Take 1 [facility] mg chewable 0-01 [id number] tablet by i ty of tablet 00:00: mouth [place] 00 daily. [facility] aspirin 81 2019- Yes [id number] 81mg Take 1 [facility] mg chewable 0-01 [id number] tablet by i ty of tablet 00:00: mouth [place] 00 daily. [facility] aspirin 81 2020- Yes [id number] 81mg Take 1 [facility] mg chewable 0-01 [id number] tablet by i ty of tablet 00:00: mouth [place] 00 daily. [facility] aspirin 81 2019- Yes [id number] 81mg Take 1 [facility] mg chewable 0-01 [id number] tablet by i ty of tablet 00:00: mouth [place] 00 daily. [facility] aspirin 81 2020- Yes [id number] 81mg Take 1 [facility] mg chewable 0-01 [id number] tablet by i ty of tablet 00:00: mouth [place] 00 daily. [facility] aspirin 81 2020- Yes [id number] 81mg Take 1 [facility] mg chewable 0-01 [id number] tablet by i ty of tablet 00:00: mouth [place] 00 daily. [facility] aspirin 81 2020- Yes [id number] 81mg Take 1 [facility] mg chewable 0-01 [id number] tablet by i ty of tablet 00:00: mouth [place] 00 daily. [facility] aspirin 81 2020- Yes [id number] 81mg Take 1 [facility] mg chewable 0-01 [id number] tablet by i ty of tablet 00:00: mouth [place] 00 daily. [facility] aspirin 81 2020- Yes [id number] 81mg Take 1 [facility] mg chewable 0-01 [id number] tablet by i ty of tablet 00:00: mouth [place] 00 daily. [facility] aspirin 81 2020- Yes [id number] 81mg Take 1 [facility] mg chewable 0-01 [id number] tablet by i ty of tablet 00:00: mouth [place] 00 daily. [facility] aspirin 81 2020- Yes [id number] 81mg Take 1 [facility] mg chewable 0-01 [id number] tablet by i ty of tablet 00:00: mouth [place] 00 daily. [facility] aspirin 81 2020- Yes [id number] 81mg Take 1 [facility] mg chewable 0-01 [id number] tablet by i ty of tablet 00:00: mouth [place] 00 daily. [facility] aspirin 81 2020- Yes [id number] 81mg Take 1 [facility] mg chewable 0-01 [id number] tablet by i ty of tablet 00:00: mouth [place] 00 daily. [facility] aspirin 81 2020- Yes [id number] 81mg Take 1 [facility] mg chewable 0-01 [id number] tablet by i ty of tablet 00:00: mouth [place] 00 daily. [facility] aspirin 81 2020- Yes [id number] 81mg Take 1 [facility] mg chewable 0-01 [id number] tablet by i ty of tablet 00:00: mouth [place] 00 daily. [facility] aspirin 81 2020- Yes [id number] 81mg Take 1 [facility] mg chewable 0-01 [id number] tablet by i ty of tablet 00:00: mouth [place] 00 daily. [facility] aspirin 81 2020- Yes [id number] 81mg Take 1 [facility] mg chewable 0-01 [id number] tablet by i ty of tablet 00:00: mouth [place] 00 daily. [facility] aspirin 81 2020- Yes [id number] 81mg Take 1 [facility] mg chewable 0-01 [id number] tablet by i ty of tablet 00:00: mouth [place] 00 daily. [facility] aspirin 81 2020- Yes [id number] 81mg Take 1 [facility] mg chewable 0-01 [id number] tablet by i ty of tablet 00:00: mouth [place] 00 daily. [facility] aspirin 81 2020- Yes [id number] 81mg Take 1 [facility] mg chewable 0-01 [id number] tablet by i ty of tablet 00:00: mouth [place] 00 daily. [facility] aspirin 81 2020- Yes [id number] 81mg Take 1 [facility] mg chewable 0-01 [id number] tablet by i ty of tablet 00:00: mouth [place] 00 daily. [facility] aspirin 81 2019- Yes [id number] 81mg Take 1 [facility] mg chewable 0-01 [id number] tablet by i ty of tablet 00:00: mouth [place] 00 daily. [facility] aspirin 81 2019- Yes [id number] 81mg Take 1 [facility] mg chewable 0-01 [id number] tablet by i ty of tablet 00:00: mouth [place] 00 daily. [facility] aspirin 81 2019- Yes [id number] 81mg Take 1 [facility] mg chewable 0-01 [id number] tablet by i ty of tablet 00:00: mouth [place] 00 daily. [facility] aspirin 81 2019- Yes [id number] 81mg Take 1 [facility] mg chewable 0-01 [id number] tablet by i ty of tablet 00:00: mouth [place] 00 daily. [facility] aspirin 81 2019- Yes [id number] 81mg Take 1 [facility] mg chewable 0-01 [id number] tablet by i ty of tablet 00:00: mouth [place] 00 daily. [facility] aspirin 81 2019- Yes [id number] 81mg Take 1 [facility] mg chewable 0-01 [id number] tablet by i ty of tablet 00:00: mouth [place] 00 daily. [facility] aspirin 81 2020- Yes [id number] 81mg Take 1 [facility] mg chewable 0-01 [id number] tablet by i ty of tablet 00:00: mouth [place] 00 daily. [facility] aspirin 81 2019- Yes [id number] 81mg Take 1 [facility] mg chewable 0-01 [id number] tablet by i ty of tablet 00:00: mouth [place] 00 daily. [facility] aspirin 81 2020- Yes [id number] 81mg Take 1 [facility] mg chewable 0-01 [id number] tablet by i ty of tablet 00:00: mouth [place] 00 daily. [facility] aspirin 81 2020- Yes [id number] 81mg Take 1 [facility] mg chewable 0-01 [id number] tablet by i ty of tablet 00:00: mouth [place] 00 daily. [facility] aspirin 81 2020- Yes [id number] 81mg Take 1 [facility] mg chewable 0-01 [id number] tablet by i ty of tablet 00:00: mouth [place] 00 daily. [facility] aspirin 81 2020- Yes [id number] 81mg Take 1 [facility] mg chewable 0-01 [id number] tablet by i ty of tablet 00:00: mouth [place] 00 daily. [facility] aspirin 81 2020- Yes [id number] 81mg Take 1 [facility] mg chewable 0-01 [id number] tablet by i ty of tablet 00:00: mouth [place] 00 daily. [facility] aspirin 81 2020- Yes [id number] 81mg Take 1 [facility] mg chewable 0-01 [id number] tablet by i ty of tablet 00:00: mouth [place] 00 daily. [facility] aspirin 81 2020- Yes [id number] 81mg Take 1 [facility] mg chewable 0-01 [id number] tablet by i ty of tablet 00:00: mouth [place] 00 daily. [facility] aspirin 81 2020- Yes [id number] 81mg Take 1 [facility] mg chewable 0-01 [id number] tablet by i ty of tablet 00:00: mouth [place] 00 daily. [facility] aspirin 81 2020- Yes [id number] 81mg Take 1 [facility] mg chewable 0-01 [id number] tablet by i ty of tablet 00:00: mouth [place] 00 daily. [facility] aspirin 81 2020- Yes [id number] 81mg Take 1 [facility] mg chewable 0-01 [id number] tablet by i ty of tablet 00:00: mouth [place] 00 daily. [facility] aspirin 81 2020- Yes [id number] 81mg Take 1 [facility] mg chewable 0-01 [id number] tablet by i ty of tablet 00:00: mouth [place] 00 daily. [facility] aspirin 81 2020- Yes [id number] 81mg Take 1 [facility] mg chewable 0-01 [id number] tablet by i ty of tablet 00:00: mouth [place] 00 daily. [facility] aspirin 81 2020- Yes [id number] 81mg Take 1 [facility] mg chewable 0-01 [id number] tablet by i ty of tablet 00:00: mouth [place] 00 daily. [facility] aspirin 81 2020- Yes [id number] 81mg Take 1 [facility] mg chewable 0-01 [id number] tablet by i ty of tablet 00:00: mouth [place] 00 daily. [facility] aspirin 81 2020- Yes [id number] 81mg Take 1 [facility] mg chewable 0-01 [id number] tablet by i ty of tablet 00:00: mouth [place] 00 daily. [facility] aspirin 81 2020- Yes [id number] 81mg Take 1 [facility] mg chewable 0-01 [id number] tablet by i ty of tablet 00:00: mouth [place] 00 daily. [facility] aspirin 81 2019-02 Yes [id number] 81mg Take 1 [facility] mg chewable 0-01 [id number] tablet by i ty of tablet 00:00: mouth [place] 00 daily. [facility] aspirin 81 2019-02 Yes [id number] 81mg Take 1 [facility] mg chewable 0-01 [id number] tablet by i ty of tablet 00:00: mouth [place] 00 daily. [facility] aspirin 81 2019-02 Yes [id number] 81mg Take 1 [facility] mg chewable 0-01 [id number] tablet by i ty of tablet 00:00: mouth [place] 00 daily. [facility] aspirin 81 2019-02 Yes [id number] 81mg Take 1 [facility] mg chewable 0-01 [id number] tablet by i ty of tablet 00:00: mouth [place] 00 daily. [facility] aspirin 81 2019-02 Yes [id number] 81mg Take 1 [facility] mg chewable 0-01 [id number] tablet by i ty of tablet 00:00: mouth [place] 00 daily. [facility] aspirin 81 2019-02 Yes [id number] 81mg Take 1 [facility] mg chewable 0-01 [id number] tablet by i ty of tablet 00:00: mouth [place] 00 daily. [facility] aspirin 81 2019-02 Yes [id number] 81mg Take 1 [facility] mg chewable 0-01 [id number] tablet by i ty of tablet 00:00: mouth [place] 00 daily. [facility] aspirin 81 2019-02 Yes [id number] 81mg Take 1 [facility] mg chewable 0-01 [id number] tablet by i ty of tablet 00:00: mouth [place] 00 daily. [facility] aspirin 81 2019-02 Yes [id number] 81mg Take 1 [facility] mg chewable 0-01 [id number] tablet by i ty of tablet 00:00: mouth [place] 00 daily. [facility] aspirin 81 2019- Yes [id number] 81mg Take 1 [facility] mg chewable 0-01 [id number] tablet by i ty of tablet 00:00: mouth [place] 00 daily. [facility] pantoprazol 2019-02- No [id number] 20mg Take 1 [facility] e 20 mg [...] 00 Medicin e atorvastati 2020-0 Yes [facility] n (LIPITOR) 6-13 [facility] 40 MG 00:00: of tablet 00 Medicin e atorvastati 2020-0 Yes [facility] n (LIPITOR) 6-13 [facility] 40 MG 00:00: of tablet 00 Medicin e atorvastati 2020-0 Yes [facility] n (LIPITOR) 6-13 [facility] 40 MG 00:00: of tablet 00 Medicin e atorvastati 2020-0 Yes [facility] n (LIPITOR) 6-13 [facility] 40 MG 00:00: of tablet 00 Medicin e atorvastati 2020-0 Yes Art n (LIPITOR) 6-13 [facility] 40 MG 00:00: of tablet 00 Medicin e atorvastati 2020-0 3- No Reji [facility] n (LIPITOR) 6-13 02-10 [facility] 40 MG 00:00: 00:00 of tablet 00 :00 Medicin e amlodipine 2020-0 Yes Art (NORVASC) [...] 00 Medicin e amlodipine 2020-0 2022- No [facility] (NORVASC) 5 6-02 09-19 College MG tablet 00:00: 00:00 of 00 :00 Medicin e losartan 2020-0 Yes Art (COZAAR) 5-30 [facility] 100 MG 00:00: of tablet 00 Medicin e losartan 2020-0 Yes [facility] (COZAAR) 5-30 [facility] 100 MG 00:00: of tablet 00 Medicin e losartan 2020-0 Yes 50mg 50 mg. [facility] [place] (COZAAR) 530 takes 50 [facility] 100 MG 00:00: mg , and of tablet 00 now she is Medicin taking e half of the dose 25 mg every day losartan 2020-0 Yes 50mg 50 mg. [facility] [place] (COZAAR) 530 takes 50 [facility] 100 MG 00:00: mg , and of tablet 00 now she is Medicin taking e half of the dose 25 mg every day losartan 2020-0 Yes [facility] (COZAAR) 5-30 [facility] 100 MG 00:00: of tablet 00 Medicin e losartan 2020-0 Yes [facility] (COZAAR) 530 College 100 MG 00:00: of tablet 00 Medicin e losartan 2020-0 Yes [facility] (COZAAR) 530 [facility] 100 MG 00:00: of tablet 00 Medicin e losartan 2020-0 2022- No 50mg 50 mg. Pt [place] raul (COZAAR) 07-12 takes 50 Colleg e 100 [...] for premedicat ion hydrALAZINE 2020-0 Yes 50mg Q.[id number] Take [address] [facility] (APRESOLINE 2-17 [id number] [facility] ) 50 MG 00:00: 3D (three) Medical tablet 00 times Center daily . hydroCHLORO 2020-0 Yes 25mg QD Take [address] [facility] thiazide 2-17 [facility] (HYDRODIURI 00:00: daily. [facility]i [facility]) 25 MG 00 Center tablet hydrALAZINE 2020-0 Yes 50mg Q.[id number] Take [address] [facility] (APRESOLINE 2-17 [id number] [facility] ) 50 MG 00:00: 3D (three) Medical tablet 00 times Center daily . hydroCHLORO 2020-0 Yes 25mg QD Take [address] [facility] thiazide 2-17 by [facility] (HYDRODIURI 00:00: daily. [facility]i [facility]) 25 MG 00 Center tablet hydrALAZINE 2020-0 Yes 50mg Q.[id number] Take [address] [facility] (APRESOLINE 2-17 [id number] by mouth [facility] ) 50 MG 00:00: 3D (three) Medical tablet 00 times Center daily . hydroCHLORO 2020-0 Yes 25mg QD Take [address] [facility] thiazide 2-17 by [facility] (HYDRODIURI 00:00: daily. [facility]i [facility]) 25 MG 00 Center tablet hydrALAZINE 2020-0 Yes 50mg Q.[id number] Take [address] [facility] (APRESOLINE 2-17 [id number] by [facility] ) 50 MG 00:00: 3D (three) Medical tablet 00 times Center daily . hydroCHLORO 2020-0 Yes 25mg QD Take [address] [facility] thiazide 2-17 by [facility] (HYDRODIURI 00:00: daily. [facility]) 25 MG 00 Center tablet hydrALAZINE 2020-0 Yes 50mg Q.[id number] Take [address] [facility] (APRESOLINE 2-17 [id number] by mouth [facility] ) 50 MG 00:00: 3D (three) Medical tablet 00 times Center daily . hydroCHLORO 2020-0 Yes 25mg QD Take [address] [facility] thiazide 2-17 by [facility] (HYDRODIURI 00:00: daily. [facility]) 25 MG 00 Center tablet hydrALAZINE 2020-0 Yes 50mg Q.[id number] Take [address] [facility] (APRESOLINE 2-17 [id number] by mouth [facility] ) 50 MG 00:00: 3D (three) Medical tablet 00 times Center daily . hydroCHLORO 2020-0 Yes 25mg QD Take [address] [facility] thiazide 2-17 by [facility] (HYDRODIURI 00:00: daily. [facility]) 25 MG 00 Center tablet hydrALAZINE 2020-0 Yes 50mg Q.[id number] Take [address] [facility] (APRESOLINE 2-17 [id number] by mouth [facility] ) 50 MG 00:00: 3D (three) Medical tablet 00 times Center daily . hydroCHLORO 2020-0 Yes 25mg QD Take [address] [facility] thiazide 2-17 by mouth [facility] (HYDRODIURI 00:00: daily. [facility]i [facility]) 25 MG 00 Center tablet hydrALAZINE 2020-0 Yes 50mg Q.[id number] Take [address] [facility] (APRESOLINE 2-17 [id number] by mouth [facility] ) 50 MG 00:00: 3D (three) Medical tablet 00 times Center daily . hydroCHLORO 2020-0 Yes 25mg QD Take [address] [facility] thiazide 2-17 by mouth [facility] (HYDRODIURI 00:00: daily. [facility]i [facility]) 25 MG 00 Center tablet hydrALAZINE 2020-0 Yes 50mg Q.[id number] Take [address] [facility] (APRESOLINE 2-17 [id number] by mouth [facility] ) 50 MG 00:00: 3D (three) Medical tablet 00 times Center daily . hydroCHLORO 2020-0 Yes 25mg QD Take [address] [facility] thiazide 2-17 by mouth [facility] (HYDRODIURI 00:00: daily. [facility]i [facility]) 25 MG 00 Center tablet hydrALAZINE 2020-0 Yes 50mg Q.[id number] Take [address] [facility] (APRESOLINE 2-17 [id number] by mouth [facility] ) 50 MG [...] by mouth [facility] tablet 00:00: daily. [address] aspirin 81 2019-0 Yes 81mg QD Take [address] [facility] chewable 6-21 by mouth [facility] tablet 00:00: daily. [address] aspirin 81 2019-0 Yes 81mg QD Take [address] [facility] chewable 6-21 by mouth [facility] tablet 00:00: daily. [address] aspirin 81 2019-0 Yes 81mg QD Take [address] [facility] chewable 6-21 by mouth [facility] tablet 00:00: daily. [address] aspirin 81 2019-0 Yes 81mg QD Take [address] [facility] chewable 6-21 by mouth [facility] tablet 00:00: daily. [address] aspirin 81 2019-0 Yes 81mg QD Take [address] [facility] chewable 6-21 by mouth [facility] tablet 00:00: daily. [address] aspirin 81 2019-0 Yes 81mg QD Take [address] [facility] chewable 6-21 by mouth [facility] tablet 00:00: daily. [address] aspirin 81 2019-0 Yes 81mg QD Take [address] [facility] chewable 6-21 by mouth [facility] tablet 00:00: daily. [address] aspirin 81 2019-0 Yes 81mg QD Take [address] [facility] chewable 6-21 by mouth [facility] tablet 00:00: daily. [address] aspirin 81 2019-0 Yes 81mg QD Take [address] [facility] chewable 6-21 by mouth [facility] tablet 00:00: daily. [address] atorvastati 2017-02 Yes 40mg QD Take [address] [facility] n (LIPITOR) 1-30 by mouth [facility] 40 MG 00:00: daily. Medical tablet [address] [place] [address] amLODIPine 2017-02 Yes 2.5mg QD Take 2.[address] (NORVASC) 5 1-30 mg by [facility] tablet 00:00: mouth [facility] 00 daily . [place] atorvastati 2017-02 Yes 40mg QD Take [address] [facility] n (LIPITOR) 1-30 by mouth [facility] 40 MG 00:00: daily. Medical tablet [address] [place] [address] amLODIPine 2017-02 Yes 2.5mg QD Take 2.[address] (NORVASC) 5 1-30 mg by [facility] tablet 00:00: mouth [facility] 00 daily . [place] atorvastati 2017-02 Yes 40mg QD Take [address] [facility] n (LIPITOR) 1-30 by mouth [facility] 40 MG 00:00: daily. Medical tablet 00 [place] amLODIPine 2017-02 Yes 2.5mg QD Take 2.[address] (NORVASC) 5 1-30 mg by [facility] tablet 00:00: mouth [facility] 00 daily . [place] atorvastati 2017-02 Yes 40mg QD Take [address] [facility] n (LIPITOR) 1-30 by mouth [facility] 40 MG 00:00: daily. Medical tablet 00 [place] amLODIPine 2017-02 Yes 2.5mg QD Take 2.[address] (NORVASC) 5 1-30 mg by [facility] tablet 00:00: mouth [facility] 00 daily . [place] atorvastati 2017-02 Yes 40mg QD Take [address] [facility] n (LIPITOR) 1-30 by mouth [facility] 40 MG 00:00: daily. Medical tablet 00 [place] amLODIPine 2017-02 Yes 2.5mg QD Take 2.[address] (NORVASC) 5 1-30 mg by [facility] tablet 00:00: mouth Medical 00 daily . [place] atorvastati 2017-02 Yes 40mg QD Take [address] [facility] n (LIPITOR) 1-30 by mouth [facility] 40 MG 00:00: daily. Medical tablet 00 [place] amLODIPine 2017-02 Yes 2.5mg QD Take 2.[address] (NORVASC) 5 1-30 mg by [facility] tablet 00:00: mouth Medical 00 daily . [place] atorvastati 2017-02 Yes 40mg QD Take [address] [facility] n (LIPITOR) 1-30 by mouth [facility] 40 MG 00:00: daily. Medical tablet 00 [place] amLODIPine 2017-02 Yes 2.5mg QD Take 2.[address] (NORVASC) 5 1-30 mg by [facility] tablet 00:00: mouth Medical 00 daily . [place] atorvastati 2017-02 Yes 40mg QD Take [address] [facility] n (LIPITOR) 1-30 by mouth [facility] 40 MG 00:00: daily. Medical tablet 00 [place] amLODIPine 2017-02 Yes 2.5mg QD Take 2.[address] (NORVASC) 5 1-30 mg by [facility] tablet 00:00: mouth Medical 00 daily . [place] atorvastati 2017-02 Yes 40mg QD Take [address] [facility] n (LIPITOR) 1-30 by mouth [facility] 40 MG 00:00: daily. Medical tablet 00 [place] amLODIPine 2017-02 Yes 2.5mg QD Take 2.[address] (NORVASC) 5 1-30 mg by [facility] tablet 00:00: mouth Medical 00 daily . [place] atorvastati 2017-02 Yes 40mg QD Take [address] [facility] n (LIPITOR) 1-30 by mouth [facility] 40 MG 00:00: daily. Medical tablet 00 [place] amLODIPine 2017-02 Yes 2.5mg QD Take 2.[address] (NORVASC) 5 1-30 mg by [facility] tablet 00:00: mouth Medical 00 daily . Center Immunizations Ordered Immunization Filled Immunization Date Status Commen ts Source Name Name Pneumococcal 2022-05-17 Completed [facility] Conjugate, PCV20 00:00:00 [facility] (Prevnar 20) Branch Pneumococcal 20 2022-05-17 Completed [facility] of Conjugate, PCV20 00:00:00 [facility] (Prevnar 20) Branch Pneumococcal 20 2022-05-17 Completed [facility] of Conjugate, PCV20 00:00:00 [facility] (Prevnar 20) Branch Pneumococcal 20 2022-05-17 Completed [facility] y of Conjugate, PCV20 00:00:00 [facility] (Prevnar 20) Branch Pneumococcal 20 2022-05-17 Completed [facility] of Conjugate, PCV20 00:00:00 [facility] (Prevnar 20) Branch Pneumococcal 20 2022-05-17 Completed [facility] of Conjugate, PCV20 00:00:00 [facility] (Prevnar 20) Branch Pneumococcal 20 2022-05-17 Completed [facility] y of Conjugate, PCV20 00:00:00 [facility] (Prevnar 20) Branch Pneumococcal 20 2022-05-17 Completed [facility] y of Conjugate, PCV20 00:00:00 [facility] (Prevnar 20) Branch Pneumococcal 20 2022-05-17 Completed [facility] y of Conjugate, PCV20 00:00:00 [facility] (Prevnar 20) Branch Pneumococcal 20 2022-05-17 Completed [facility] of Conjugate, PCV20 00:00:00 [place] [facility] (Prevnar 20) Branch Pneumococcal 20 2022-05-17 Completed [facility] of Conjugate, PCV20 00:00:00 [place] [facility] (Prevnar 20) Branch Pneumococcal 20 2022-05-17 Completed [facility] of Conjugate, PCV20 00:00:00 [place] [facility] (Prevnar 20) Branch Pneumococcal 20 2022-05-17 Completed [facility] of Conjugate, PCV20 00:00:00 [place] [facility] (Prevnar 20) Branch Pneumococcal 20 2022-05-17 Completed [facility] of Conjugate, PCV20 00:00:00 [place] [facility] (Prevnar 20) Branch Pneumococcal 20 2022-05-17 Completed [facility] of Conjugate, PCV20 00:00:00 [place] [facility] (Prevnar 20) Branch Pneumococcal 20 2022-05-17 Completed [facility] of Conjugate, PCV20 00:00:00 [place] [facility] (Prevnar 20) Branch Pneumococcal 20 2022-05-17 Completed [facility] of Conjugate, PCV20 00:00:00 [place] [facility] (Prevnar 20) Branch Pneumococcal 20 2022-05-17 Completed [facility] of Conjugate, PCV20 00:00:00 [place] [facility] (Prevnar 20) Branch Pneumococcal 20 2022-05-17 Completed [facility] of Conjugate, PCV20 00:00:00 [place] [facility] (Prevnar 20) Branch Pneumococcal 20 2022-05-17 Completed [facility] of Conjugate, PCV20 00:00:00 [place] [facility] (Prevnar 20) Branch Pneumococcal 20 2022-05-17 Completed [facility] of Conjugate, PCV20 00:00:00 [place] [facility] (Prevnar 20) Branch Pneumococcal 20 2022-05-17 Completed [facility] of Conjugate, PCV20 00:00:00 [place] [facility] (Prevnar 20) Branch Pneumococcal 20 2022-05-17 Completed [facility] of Conjugate, PCV20 00:00:00 [place] [facility] (Prevnar 20) Branch Pneumococcal 20 2022-05-17 Completed [facility] of Conjugate, PCV20 00:00:00 [place] [facility] (Prevnar 20) Branch Pneumococcal 20 2022-05-17 Completed [facility] of Conjugate, PCV20 00:00:00 [place] [facility] (Prevnar 20) [facility] Pneumococcal 20 2022-05-17 Completed [facility] of Conjugate, PCV20 00:00:00 [place] [facility] (Prevnar 20) Branch Pneumococcal 20 2022-05-17 Completed [facility] of Conjugate, PCV20 00:00:00 [place] [facility] (Prevnar 20) Branch Pneumococcal 20 2022-05-17 Completed [facility] of Conjugate, PCV20 00:00:00 [place] [facility] (Prevnar 20) Branch Pneumococcal 20 2022-05-17 Completed [facility] of Conjugate, PCV20 00:00:00 [place] [facility] (Prevnar 20) Branch Pneumococcal 20 2022-05-17 Completed [facility] y of Conjugate, PCV20 00:00:00 [place] [facility] (Prevnar 20) Branch Pneumococcal 20 2022-05-17 Completed [facility] of Conjugate, PCV20 00:00:00 [place] [facility] (Prevnar 20) Branch Pneumococcal 20 2022-05-17 Completed [facility] y of Conjugate, PCV20 00:00:00 [facility] (Prevnar 20) Branch Pneumococcal 20 2022-05-17 Completed [facility] y of Conjugate, PCV20 00:00:00 [place] [facility] (Prevnar 20) Branch Pneumococcal 20 2022-05-17 Completed [facility] y of Conjugate, PCV20 00:00:00 [facility] (Prevnar 20) Branch Pneumococcal 20 2022-05-17 Completed Univers[facility] y of Conjugate, PCV20 00:00:00 [facility] (Prevnar 20) Branch Pneumococcal 20 2022-05-17 Completed [facility] y of Conjugate, PCV20 00:00:00 [facility] (Prevnar 20) Branch Pneumococcal 20 2022-05-17 Completed [facility] y of Conjugate, PCV20 00:00:00 [place] [facility] (Prevnar 20) [facility] Influenza Virus 2021-12-24 Completed [facility] of [...] 2021-12-24 Completed [facility] SARS-COV-2 [...] 2019-11-08 Completed [facility]ive [facility] of [facility] 00:00:00 [facility] Influenza High Dose 2019-11-08 Completed [facility]ive [facility] of [facility] 00:00:00 [facility] Influenza High Dose 2019-11-08 Completed [facility] of [facility] 00:00:00 [facility] Influenza High Dose 2019-11-08 Completed [facility] of [facility] 00:00:00 [facility] Influenza High Dose 2019-11-08 Completed [facility] of [facility] 00:00:00 [facility] Influenza High Dose 2019-11-08 Completed [facility] of [facility] 00:00:00 [facility] Influenza High Dose 2019-11-08 Completed [facility] of [facility] 00:00:00 [facility] Influenza High Dose 2019-11-08 Completed [facility]ive [facility] of [facility] 00:00:00 [facility] Influenza High Dose 2019-11-08 Completed [facility] of [facility] 00:00:00 [facility] Influenza High Dose 2019-11-08 Completed [facility]ive [facility] of [facility] 00:00:00 [facility] Influenza High Dose 2019-11-08 Completed [facility]ive [facility] of [facility] 00:00:00 [facility] Influenza High Dose 2019-11-08 Completed Unive rsity of [facility] 00:00:00 [facility] Influenza High Dose 2019-11-08 Completed [facility]ive [facility] of [facility] 00:00:00 [facility] Influenza High Dose 2019-11-08 Completed Unive [facility] of [facility] 00:00:00 [facility] Influenza High Dose 2019-11-08 Completed [facility]ive [facility] of [facility] 00:00:00 [facility] Influenza High Dose 2019-11-08 Completed Unive rsity of [facility] 00:00:00 [facility] Influenza High Dose 2019-11-08 Completed [facility]ive [facility]ity of [facility] 00:00:00 [facility] Influenza High Dose 2019-11-08 Completed Unive rsity of [facility] 00:00:00 [facility] Influenza High Dose 2019-11-08 Completed Unive rsity of Quad 00:00:00 [facility] Influenza High Dose 2019-11-08 Completed [facility] 00:00:00 [facility] Influenza High Dose 2019-11-08 Completed [facility] 00[facility]00 [facility] Influenza High Dose 2019-11-08 Completed [facility] 00:00:00 [facility] Influenza High Dose 2019-11-08 Completed [facility] 00:00:00 [facility] Influenza High Dose 2019-11-08 Completed [facility] 00:00:00 [facility] Influenza High Dose 2019-11-08 Completed [facility] 00:00:00 [facility] Influenza High Dose 2019-11-08 Completed [facility] 00:00:00 [facility] Influenza High Dose 2019-11-08 Completed [facility] 00:00:00 [facility] Influenza High Dose 2019-11-08 Completed [facility] 00:00:00 [facility] Influenza High Dose 2019-11-08 Completed [facility] 00:00:00 [facility] Influenza High Dose 2019-11-08 Completed [facility] 00:00:00 [facility] Influenza High Dose 2019-11-08 Completed [facility] 00[facility]00:00 [facility] Influenza High Dose 2019-11-08 Completed [facility] 00:00:00 [facility] Influenza High Dose 2019-11-08 Completed [facility] 00[facility]00:00 [facility] Influenza High Dose 2019-11-08 Completed [facility] 00:00:00 [facility] Influenza High Dose 2019-11-08 Completed [facility] 00[facility]00:00 [facility] Influenza High Dose 2019-11-08 Completed [facility] 00:00:00 [facility] Influenza High Dose 2019-11-08 Completed [facility] 00[facility]00:00 [facility] Influenza High Dose 2019-11-08 Completed [facility] 00:00:00 [facility] Influenza High Dose 2019-11-08 Completed [facility] 00[facility]00:00 [facility] Influenza High Dose 2019-11-08 Completed [facility] 00:00:00 [facility] Influenza High Dose 2019-11-08 Completed [facility] 00:00:00 [facility] Influenza High Dose 2019-11-08 Completed [facility] 00:00:00 [facility] Influenza High Dose 2019-11-08 Completed [facility] 00:00:00 [facility] Influenza High Dose 2019-11-08 Completed [facility] 00:00:00 [facility] Influenza High Dose 2019-11-08 Completed [facility] 00[facility]00:00 [facility] Influenza High Dose 2019-11-08 Completed [facility] 00:00:00 [facility] Influenza High Dose 2019-11-08 Completed [facility] 00[facility]00:00 [facility] Influenza High Dose 2019-11-08 Completed [facility] 00:00:00 [facility] Influenza High Dose 2019-11-08 Completed [facility] 00[facility]00:00 [facility] Influenza High Dose 2019-11-08 Completed [facility] 00:00:00 [facility] Influenza High Dose 2019-11-08 Completed [facility] 00[facility]00:00 [facility] Influenza High Dose 2019-11-08 Completed [facility] 00:00:00 [facility] Influenza High Dose 2019-11-08 Completed [facility] 00:00:00 [facility] Influenza High Dose 2019-11-08 Completed [facility] 00:00:00 [facility] Influenza High Dose 2019-11-08 Completed [facility] 00[facility]00:00 [facility] Influenza High Dose 2019-11-08 Completed [facility] 00:00:00 [facility] Influenza High Dose 2019-11-08 Completed [facility] 00[facility]00:00 [facility] Influenza High Dose 2019-11-08 Completed [facility] 00:00:00 [facility] Influenza High Dose 2019-11-08 Completed [facility] 00[facility]00:00 [facility] Influenza High Dose 2019-11-08 Completed [facility] 00:00:00 [facility] Influenza High Dose 2019-11-08 Completed [facility] 00[facility]00:00 [facility] Influenza High Dose 2019-11-08 Completed [facility] 00:00:00 [facility] Influenza High Dose 2019-11-08 Completed [facility] 00[facility]00:00 [facility] Influenza High Dose 2019-11-08 Completed [facility] 00:00:00 [facility] Influenza High Dose 2019-11-08 Completed [facility] 00[facility]00:00 [facility] Influenza High Dose 2019-11-08 Completed [facility] 00:00:00 [facility] Influenza High Dose 2019-11-08 Completed [facility] 00[facility]00:00 [facility] Influenza High Dose 2019-11-08 Completed [facility] 00:00:00 [facility] Influenza High Dose 2019-11-08 Completed [facility] 00[facility]00:00 [facility] Influenza High Dose 2019-11-08 Completed [facility] 00:00:00 [facility] Influenza High Dose 2019-11-08 Completed [facility] 00[facility]00:00 [facility] Influenza High Dose 2019-11-08 Completed [facility] 00:00:00 [facility] Influenza High Dose 2019-11-08 Completed [facility] 00[facility]00:00 [facility] Influenza High Dose 2019-11-08 Completed [facility] 00:00:00 [facility] Influenza High Dose 2019-11-08 Completed [facility] 00[facility]00:00 [facility] Influenza High Dose 2019-11-08 Completed [facility] 00:00:00 [facility] Influenza High Dose 2019-11-08 Completed [facility] 00[facility]00:00 [facility] Influenza High Dose 2019-11-08 Completed [facility] 00:00:00 [facility] Influenza High Dose 2019-11-08 Completed [facility] 00[facility]00:00 [facility] Influenza High Dose 2019-11-08 Completed [facility] 00:00:00 [facility] Influenza High Dose 2019-11-08 Completed [facility] 00:00:00 [facility] Influenza High Dose 2019-11-08 Completed [facility] 00:00:00 [facility] Influenza High Dose 2019-11-08 Completed [facility] 00:00:00 [facility] Influenza High Dose 2019-11-08 Completed [facility] 00:00:00 [facility] Influenza High Dose 2019-11-08 Completed [facility] 00:00:00 [facility] Influenza High Dose 2019-11-08 Completed [facility] 00:00:00 [facility] Influenza High Dose 2019-11-08 Completed [facility] 00:00:00 [facility] Influenza High Dose 2019-11-08 Completed [facility] 00:00:00 [facility] Influenza High Dose 2019-11-08 Completed [facility] 00:00:00 [facility] Influenza High Dose 2019-11-08 Completed [facility] 00:00:00 [facility] Influenza High Dose 2019-11-08 Completed [facility] 00:00:00 [facility] Influenza High Dose 2019-11-08 Completed [facility] 00:00:00 [facility] Influenza High Dose 2019-11-08 Completed [facility] 00:00:00 [facility] Influenza High Dose 2019-11-08 Completed [facility] 00:00:00 [facility] Influenza High Dose 2019-11-08 Completed [facility] 00:00:00 [facility] Influenza High Dose 2019-11-08 Completed [facility] 00:00:00 [facility] Influenza High Dose 2019-11-08 Completed [facility] 00:00:00 [facility] Influenza High Dose 2019-11-08 Completed [facility] 00:00:00 [facility] Influenza High Dose 2019-11-08 Completed [facility] 00:00:00 [facility] Influenza High Dose 2019-11-08 Completed [facility] 00:00:00 [facility] Influenza High Dose 2019-11-08 Completed [facility] 00:00:00 [facility] Influenza High Dose 2019-11-08 Completed [facility] 00:00:00 [facility] Influenza High Dose 2019-11-08 Completed [facility] 00:00:00 [facility] Influenza High Dose 2019-11-08 Completed [facility] 00:00:00 [facility] Influenza High Dose 2019-11-08 Completed [facility] 00:00:00 [facility] Influenza High Dose 2019-11-08 Completed [facility] 00:00:00 [facility] Influenza High Dose 2019-11-08 Completed [facility] 00:00:00 [facility] Influenza High Dose 2019-11-08 Completed [facility] 00:00:00 [facility] Influenza High Dose 2019-11-08 Completed [facility] 00:00:00 [facility] Influenza High Dose 2019-11-08 Completed [facility] 00:00:00 [facility] Influenza High Dose 2019-11-08 Completed [facility] 00:00:00 [facility] Influenza High Dose 2019-11-08 Completed [facility] 00:00:00 [facility] Influenza High Dose 2019-11-08 Completed [facility] 00:00:00 [facility] Influenza High Dose 2019-11-08 Completed [facility] 00:00:00 [facility] Influenza High Dose 2019-11-08 Completed [facility] 00:00:00 [facility] Influenza High Dose 2019-11-08 Completed [facility] 00:00:00 [facility] Influenza High Dose 2019-11-08 Completed [facility] 00[facility]00:00 [facility] Influenza High Dose 2019-11-08 Completed [facility] 00:00:00 [facility] Influenza High Dose 2019-11-08 Completed [facility] 00:00:00 [facility] Influenza High Dose 2019-11-08 Completed [facility] 00:00:00 [facility] Influenza High Dose 2019-11-08 Completed [facility] 00:00:00 [facility] Influenza High Dose 2019-11-08 Completed [facility] 00:00:00 [facility] Influenza High Dose 2019-11-08 Completed [facility] 00:00:00 [facility] Influenza High Dose 2019-11-08 Completed [facility] 00:00:00 [facility] Influenza High Dose 2019-11-08 Completed [facility] 00:00:00 [facility] Influenza High Dose 2019-11-08 Completed [facility] 00:00:00 [facility] Influenza High Dose 2019-11-08 Completed [facility] 00[facility]00:00 [facility] Influenza High Dose 2019-11-08 Completed [facility] 00:00:00 [facility] Influenza High Dose 2019-11-08 Completed [facility] 00:00:00 [facility] Influenza High Dose 2019-11-08 Completed [facility] 00:00:00 [facility] Influenza High Dose 2019-11-08 Completed [facility] 00:00:00 [facility] Influenza High Dose 2019-11-08 Completed [facility] 00:00:00 [facility] Influenza High Dose 2019-11-08 Completed [facility] 00:00:00 [facility] Influenza High Dose 2019-11-08 Completed [facility] 00:00:00 [facility] Influenza High Dose 2019-11-08 Completed [facility] 00:00:00 [facility] Influenza High Dose 2019-11-08 Completed [facility] 00:00:00 [facility] Influenza High Dose 2019-11-08 Completed [facility] 00:00:00 [facility] Influenza High Dose 2019-11-08 Completed [facility] 00:00:00 [facility] Influenza High Dose 2019-11-08 Completed [facility] 00:00:00 [facility] Influenza High Dose 2019-11-08 Completed [facility] 00:00:00 [facility] Influenza High Dose 2019-11-08 Completed [facility] 00:00:00 [facility] Influenza High Dose 2019-11-08 Completed [facility] 00:00:00 [facility] Influenza High Dose 2019-11-08 Completed [facility] 00[facility]00:00 [facility] Influenza High Dose 2019-11-08 Completed [facility] 00:00:00 [facility] Influenza High Dose 2019-11-08 Completed [facility] 00:00:00 [facility] Influenza High Dose 2019-11-08 Completed [facility] 00:00:00 [facility] Influenza High Dose 2019-11-08 Completed [facility] 00:00:00 [facility] Influenza High Dose 2019-11-08 Completed [facility] 00:00:00 [facility] Influenza High Dose 2019-11-08 Completed [facility] 00[facility]00:00 [facility] Influenza High Dose 2019-11-08 Completed [facility] 00:00:00 [facility] Influenza Hd 2019-11-08 Completed [facility]00 [facility] Influenza Hd 2019-11-08 Completed [facility] 00:00:00 [facility] Influenza Hd 2019-11-08 Completed [facility] 00[facility]00:00 [facility] Influenza High Dose 2019-02-13 Completed [facility] 00:00:00 [facility] Influenza High Dose 2019-02-13 Completed [facility] 00:00:00 [facility] Influenza High Dose 2019-02-13 Completed [facility] 00:00:00 [facility] Influenza High Dose 2019-02-13 Completed [facility] 00:00:00 [facility] Influenza High Dose 2019-02-13 Completed [facility] 00:00:00 [facility] Influenza High Dose 2019-02-13 Completed [facility] 00:00:00 [facility] Influenza High Dose 2019-02-13 Completed [facility] 00:00:00 [facility] Influenza High Dose 2019-02-13 Completed [facility] 00:00:00 [facility] Influenza High Dose 2019-02-13 Completed [facility] 00:00:00 [facility] Influenza High Dose 2019-02-13 Completed [facility] 00:00:00 [facility] Influenza High Dose 2019-02-13 Completed [facility] 00:00:00 [facility] Influenza High Dose 2019-02-13 Completed [facility] 00:00:00 [facility] Influenza High Dose 2019-02-13 Completed [facility] 00:00:00 [facility] Influenza High Dose 2019-02-13 Completed [facility] 00:00:00 [facility] Influenza High Dose 2019-02-13 Completed [facility] 00:00:00 [facility] Influenza High Dose 2019-02-13 Completed [facility] 00:00:00 [facility] Influenza High Dose 2019-02-13 Completed [facility] 00:00:00 [facility] Influenza High Dose 2019-02-13 Completed [facility] 00:00:00 [facility] Influenza High Dose 2019-02-13 Completed [facility] 00:00:00 [facility] Influenza High Dose 2019-02-13 Completed [facility] 00:00:00 [facility] Influenza High Dose 2019-02-13 Completed [facility] 00:00:00 [facility] Influenza High Dose 2019-02-13 Completed [facility] 00:00:00 [facility] Influenza High Dose 2019-02-13 Completed [facility] 00:00:00 [facility] Influenza High Dose 2019-02-13 Completed [facility] 00:00:00 [facility] Influenza High Dose 2019-02-13 Completed [facility] 00:00:00 [facility] Influenza High Dose 2019-02-13 Completed [facility] 00:00:00 [facility] Influenza High Dose 2019-02-13 Completed [facility] 00:00:00 [facility] Influenza High Dose 2019-02-13 Completed [facility] 00:00:00 [facility] Influenza High Dose 2019-02-13 Completed [facility] 00:00:00 [facility] Influenza High Dose 2019-02-13 Completed [facility] 00:00:00 [facility] Influenza High Dose 2019-02-13 Completed [facility] 00:00:00 [facility] Influenza High Dose 2019-02-13 Completed [facility] 00:00:00 [facility] Influenza High Dose 2019-02-13 Completed [facility] 00:00:00 [facility] Influenza High Dose 2019-02-13 Completed [facility] 00:00:00 [facility] Influenza High Dose 2019-02-13 Completed [facility] 00:00:00 [facility] Influenza High Dose 2019-02-13 Completed [facility] 00:00:00 [facility] Influenza High Dose 2019-02-13 Completed [facility] 00:00:00 [facility] Influenza High Dose 2019-02-13 Completed [facility] 00:00:00 [facility] Influenza High Dose 2019-02-13 Completed [facility] 00:00:00 [facility] Influenza High Dose 2019-02-13 Completed [facility] 00:00:00 [facility] Influenza High Dose 2019-02-13 Completed [facility] 00:00:00 [facility] Influenza High Dose 2019-02-13 Completed [facility] 00:00:00 [facility] Influenza High Dose 2019-02-13 Completed [facility] 00:00:00 [facility] Influenza High Dose 2019-02-13 Completed [facility] 00:00:00 [facility] Influenza High Dose 2019-02-13 Completed [facility] 00:00:00 [facility] Influenza High Dose 2019-02-13 Completed [facility] 00:00:00 [facility] Influenza High Dose 2019-02-13 Completed [facility] 00:00:00 [facility] Influenza High Dose 2019-02-13 Completed [facility] 00:00:00 [facility] Influenza High Dose 2019-02-13 Completed [facility] 00:00:00 [facility] Influenza High Dose 2019-02-13 Completed [facility] 00:00:00 [facility] Influenza High Dose 2019-02-13 Completed [facility] 00:00:00 [facility] Influenza High Dose 2019-02-13 Completed [facility] 00:00:00 [facility] Influenza High Dose 2019-02-13 Completed [facility] 00:00:00 [facility] Influenza High Dose 2019-02-13 Completed [facility] 00:00:00 [facility] Influenza High Dose 2019-02-13 Completed [facility] 00:00:00 [facility] Influenza High Dose 2019-02-13 Completed [facility] 00:00:00 [facility] Influenza High Dose 2019-02-13 Completed [facility] 00:00:00 [facility] Influenza High Dose 2019-02-13 Completed [facility] 00:00:00 [facility] Influenza High Dose 2019-02-13 Completed [facility] 00:00:00 [facility] Influenza High Dose 2019-02-13 Completed [facility] 00:00:00 [facility] Influenza High Dose 2019-02-13 Completed [facility] 00:00:00 [facility] Influenza High Dose 2019-02-13 Completed [facility] 00:00:00 [facility] Influenza High Dose 2019-02-13 Completed [facility] 00:00:00 [facility] Influenza High Dose 2019-02-13 Completed [facility] 00:00:00 [facility] Influenza High Dose 2019-02-13 Completed [facility] 00:00:00 [facility] Influenza High Dose 2019-02-13 Completed [facility] 00:00:00 [facility] Influenza High Dose 2019-02-13 Completed [facility] 00:00:00 [facility] Influenza High Dose 2019-02-13 Completed [facility] 00:00:00 [facility] Influenza High Dose 2019-02-13 Completed [facility] 00:00:00 [facility] Influenza High Dose 2019-02-13 Completed [facility] 00:00:00 [facility] Influenza High Dose 2019-02-13 Completed [facility] 00:00:00 [facility] Influenza High Dose 2019-02-13 Completed [facility] 00:00:00 [facility] Influenza High Dose 2019-02-13 Completed [facility] 00:00:00 [facility] Influenza High Dose 2019-02-13 Completed [facility] 00:00:00 [facility] Influenza High Dose 2019-02-13 Completed [facility] 00:00:00 [facility] Influenza High Dose 2019-02-13 Completed [facility] 00:00:00 [facility] Influenza High Dose 2019-02-13 Completed [facility] 00:00:00 [facility] Influenza High Dose 2019-02-13 Completed [facility] 00:00:00 [facility] Influenza High Dose 2019-02-13 Completed [facility] 00:00:00 [facility] Influenza High Dose 2019-02-13 Completed [facility] 00:00:00 [facility] Influenza High Dose 2019-02-13 Completed [facility] 00:00:00 [facility] Influenza High Dose 2019-02-13 Completed [facility] 00:00:00 [facility] Influenza High Dose 2019-02-13 Completed [facility] 00:00:00 [facility] Influenza High Dose 2019-02-13 Completed [facility] 00:00:00 [facility] Influenza Hd 2019-02-13 Completed [facility] Influenza Hd 2019-02-13 Completed [facility]:00 [facility] Influenza Hd 2019-02-13 Completed [facility] 00:00:00 [facility] TDAP 2017-11-10 Completed [facility] 00[facility]00 [facility] TDAP 2017-11-10 Completed [facility] 00:00:00 [facility] TDAP 2017-11-10 Completed [facility] 00:00:00 [facility] TDAP 2017-11-10 Completed [facility] 00:00:00 [facility] TDAP 2017-11-10 Completed [facility] 00:00:00 [facility] TDAP 2017-11-10 Completed [facility] 00:00:00 [facility] TDAP 2017-11-10 Completed [facility] 00:00:00 [facility] TDAP 2017-11-10 Completed [facility] 00:00:00 [facility] TDAP 2017-11-10 Completed [facility] 00:00:00 [facility] TDAP 2017-11-10 Completed [facility] 00:00:00 [facility] TDAP 2017-11-10 Completed [facility] 00:00:00 [facility] TDAP 2017-11-10 Completed [facility] 00:00:00 [facility] TDAP 2017-11-10 Completed [facility] 00:00:00 [facility] TDAP 2017-11-10 Completed [facility] 00:00:00 [facility] TDAP 2017-11-10 Completed [facility] 00:00:00 [facility] TDAP 2017-11-10 Completed [facility] 00:00:00 [facility] TDAP 2017-11-10 Completed [facility] 00:00:00 [facility] TDAP 2017-11-10 Completed [facility] 00:00:00 [facility] TDAP 2017-11-10 Completed [facility] 00:00:00 [facility] TDAP 2017-11-10 Completed [facility] 00:00:00 [facility] TDAP 2017-11-10 Completed [facility] 00:00:00 [facility] TDAP 2017-11-10 Completed [facility] 00:00:00 [facility] TDAP 2017-11-10 Completed [facility] 00:00:00 [facility] TDAP 2017-11-10 Completed [facility] 00:00:00 [facility] TDAP 2017-11-10 Completed [facility] 00:00:00 [facility] TDAP 2017-11-10 Completed [facility] 00:00:00 [facility] TDAP 2017-11-10 Completed [facility] 00:00:00 [facility] TDAP 2017-11-10 Completed [facility] 00:00:00 [facility] TDAP 2017-11-10 Completed [facility] 00:00:00 [facility] TDAP 2017-11-10 Completed [facility] 00:00:00 [facility] TDAP 2017-11-10 Completed [facility] 00:00:00 [facility] TDAP 2017-11-10 Completed [facility] 00:00:00 [facility] TDAP 2017-11-10 Completed [facility] 00:00:00 [facility] TDAP 2017-11-10 Completed [facility] 00:00:00 [facility] TDAP 2017-11-10 Completed [facility] 00:00:00 [facility] TDAP 2017-11-10 Completed [facility] 00:00:00 [facility] TDAP 2017-11-10 Completed [facility] 00:00:00 [facility] TDAP 2017-11-10 Completed [facility] 00:00:00 [facility] TDAP 2017-11-10 Completed [facility] 00:00:00 [facility] TDAP 2017-11-10 Completed [facility] 00:00:00 [facility] TDAP 2017-11-10 Completed [facility] 00:00:00 [facility] TDAP 2017-11-10 Completed [facility] 00:00:00 [facility] TDAP 2017-11-10 Completed [facility] of 00:00:00 [facility] TDAP 2017-11-10 Completed [facility] 00:00:00 [facility] TDAP 2017-11-10 Completed [facility] 00:00:00 [facility] TDAP 2017-11-10 Completed [facility] 00:00:00 [facility] TDAP 2017-11-10 Completed [facility] 00:00:00 [facility] TDAP 2017-11-10 Completed [facility] 00:00:00 [facility] TDAP 2017-11-10 Completed [facility] 00:00:00 [facility] TDAP 2017-11-10 Completed [facility] 00:00:00 [facility] TDAP 2017-11-10 Completed [facility] 00:00:00 [facility] TDAP 2017-11-10 Completed [facility] 00:00:00 [facility] TDAP 2017-11-10 Completed [facility] 00:00:00 [facility] TDAP 2017-11-10 Completed [facility] 00:00:00 [facility] TDAP 2017-11-10 Completed [facility] 00:00:00 [facility] TDAP 2017-11-10 Completed [facility] 00:00:00 [facility] TDAP 2017-11-10 Completed [facility] 00:00:00 [facility] TDAP 2017-11-10 Completed [facility] 00:00:00 [facility] TDAP 2017-11-10 Completed [facility] 00:00:00 [facility] TDAP 2017-11-10 Completed [facility] 00:00:00 [facility] TDAP 2017-11-10 Completed [facility] 00:00:00 [facility] TDAP 2017-11-10 Completed [facility] 00:00:00 [facility] TDAP 2017-11-10 Completed [facility] 00:00:00 [facility] TDAP 2017-11-10 Completed [facility] 00:00:00 [facility] TDAP 2017-11-10 Completed [facility] 00:00:00 [facility] TDAP 2017-11-10 Completed [facility] 00:00:00 [facility] TDAP 2017-11-10 Completed [facility] 00:00:00 [facility] TDAP 2017-11-10 Completed [facility] 00:00:00 [facility] TDAP 2017-11-10 Completed [facility] 00:00:00 [facility] TDAP 2017-11-10 Completed [facility] 00:00:00 [facility] TDAP 2017-11-10 Completed [facility] 00:00:00 [facility] TDAP 2017-11-10 Completed [facility] 00:00:00 [facility] TDAP 2017-11-10 Completed [facility] 00:00:00 [facility] TDAP 2017-11-10 Completed [facility] 00:00:00 [facility] TDAP 2017-11-10 Completed [facility] 00:00:00 [facility] TDAP 2017-11-10 Completed [facility] 00:00:00 [facility] TDAP 2017-11-10 Completed [facility] 00:00:00 [facility] TDAP 2017-11-10 Completed [facility] 00:00:00 [facility] TDAP 2017-11-10 Completed [facility] 00:00:00 [facility] TDAP 2017-11-10 Completed [facility] 00:00:00 [facility] TDAP 2017-11-10 Completed [facility] 00:00:00 [facility] TDAP 2017-11-10 Completed [facility] 00:00:00 [facility] TDAP 2017-11-10 Completed [facility] 00:00:00 [facility] TDAP 2017-11-10 Completed [facility] 00:00:00 [facility] 2017-11-10 Completed [facility] 00:00:00 of Medicine Tdap 2017-11-10 Completed [facility] 00:00:00 of Medicine Tdap 2017-11-10 Completed [facility] 00:00:00 of Medicine Pneumococcal 2017-06-09 Completed [...] [id number] ([id number]) Branch Pneumococcal 2017-06-09 Completed [facility] Polysaccharide 00:00:00 of Medicin e Pneumococcal 2017-06-09 Completed [facility] Polysaccharide 00:00:00 of Medicin e Pneumococcal 2017-06-09 Completed [facility] Polysaccharide 00:00:00 of Medicin e Influenza High Dose 2016-11-14 Completed Unive rsity of 00:00:00 [facility] Influenza High Dose 2016-11-14 Completed Unive rsity of 00:00:00 [facility] Influenza High Dose 2016-11-14 Completed Unive rsity of 00:00:00 [facility] Influenza High Dose 2016-11-14 Completed Unive rsity of 00:00:00 [facility] Influenza High Dose 2016-11-14 Completed Unive rsity of 00:00:00 [facility] Influenza High Dose 2016-11-14 Completed Unive rsity of 00:00:00 [facility] Influenza High Dose 2016-11-14 Completed Unive rsity of 00:00:00 [facility] Influenza High Dose 2016-11-14 Completed Unive rsity of 00:00:00 [facility] Influenza High Dose 2016-11-14 Completed Unive rsity of 00:00:00 [facility] Influenza High Dose 2016-11-14 Completed Unive rsity of 00:00:00 [facility] Influenza High Dose 2016-11-14 Completed Unive rsity of 00:00:00 [facility] Influenza High Dose 2016-11-14 Completed Unive rsity of 00:00:00 [facility] Influenza High Dose 2016-11-14 Completed Unive rsity of 00:00:00 [facility] Influenza High Dose 2016-11-14 Completed Unive rsity of 00:00:00 [facility] Influenza High Dose 2016-11-14 Completed Unive rsity of 00:00:00 [facility] Influenza High Dose 2016-11-14 Completed Unive rsity of 00:00:00 [facility] Influenza High Dose 2016-11-14 Completed Unive rsity of 00:00:00 [facility] Influenza High Dose 2016-11-14 Completed Unive rsity of 00:00:00 [facility] Influenza High Dose 2016-11-14 Completed Unive rsity of 00:00:00 [facility] Influenza High Dose 2016-11-14 Completed Unive rsity of 00:00:00 [facility] Influenza High Dose 2016-11-14 Completed Unive rsity of 00:00:00 [facility] Influenza High Dose 2016-11-14 Completed Unive rsity of 00:00:00 [facility] Influenza High Dose 2016-11-14 Completed Unive rsity of 00:00:00 [facility] Influenza High Dose 2016-11-14 Completed Unive rsity of 00:00:00 [facility] Influenza High Dose 2016-11-14 Completed Unive rsity of 00:00:00 [facility] Influenza High Dose 2016-11-14 Completed Unive rsity of 00:00:00 [facility] Influenza High Dose 2016-11-14 Completed Unive rsity of 00:00:00 [facility] Influenza High Dose 2016-11-14 Completed Unive rsity of 00:00:00 [facility] Influenza High Dose 2016-11-14 Completed Unive rsity of 00:00:00 [facility] Influenza High Dose 2016-11-14 Completed Unive rsity of 00:00:00 [facility] Influenza High Dose 2016-11-14 Completed Unive rsity of 00:00:00 [facility] Influenza High Dose 2016-11-14 Completed Unive rsity of 00:00:00 [facility] Influenza High Dose 2016-11-14 Completed Unive rsity of 00:00:00 [facility] Influenza High Dose 2016-11-14 Completed Unive rsity of 00:00:00 [facility] Influenza High Dose 2016-11-14 Completed Unive rsity of 00:00:00 [facility] Influenza High Dose 2016-11-14 Completed Unive rsity of 00:00:00 [facility] Influenza High Dose 2016-11-14 Completed Unive rsity of 00:00:00 [facility] Influenza High Dose 2016-11-14 Completed Unive rsity of 00:00:00 [facility] Influenza High Dose 2016-11-14 Completed Unive rsity of 00:00:00 [facility] Influenza High Dose 2016-11-14 Completed Unive rsity of 00:00:00 [facility] Influenza High Dose 2016-11-14 Completed Unive rsity of 00:00:00 [facility] Influenza High Dose 2016-11-14 Completed Unive rsity of 00:00:00 [facility] Influenza High Dose 2016-11-14 Completed Unive rsity of 00:00:00 [facility] Influenza High Dose 2016-11-14 Completed Unive rsity of 00:00:00 [facility] Influenza High Dose 2016-11-14 Completed Unive rsity of 00:00:00 [facility] Influenza High Dose 2016-11-14 Completed Unive rsity of 00:00:00 [facility] Influenza High Dose 2016-11-14 Completed Unive rsity of 00:00:00 [facility] Influenza High Dose 2016-11-14 Completed Unive rsity of 00:00:00 [facility] Influenza High Dose 2016-11-14 Completed Unive rsity of 00:00:00 [facility] Influenza High Dose 2016-11-14 Completed Unive rsity of 00:00:00 [facility] Influenza High Dose 2016-11-14 Completed Unive rsity of 00:00:00 [facility] Influenza High Dose 2016-11-14 Completed Unive rsity of 00:00:00 [facility] Influenza High Dose 2016-11-14 Completed Unive rsity of 00:00:00 [facility] Influenza High Dose 2016-11-14 Completed Unive rsity of 00:00:00 [facility] Influenza High Dose 2016-11-14 Completed Unive rsity of 00:00:00 [facility] Influenza High Dose 2016-11-14 Completed Unive rsity of 00:00:00 [facility] Influenza High Dose 2016-11-14 Completed Unive rsity of 00:00:00 [facility] Influenza High Dose 2016-11-14 Completed Unive rsity of 00:00:00 [facility] Influenza High Dose 2016-11-14 Completed Unive rsity of 00:00:00 [facility] Influenza High Dose 2016-11-14 Completed Unive rsity of 00:00:00 [facility] Influenza High Dose 2016-11-14 Completed Unive rsity of 00:00:00 [facility] Influenza High Dose 2016-11-14 Completed Unive rsity of 00:00:00 [facility] Influenza High Dose 2016-11-14 Completed Unive rsity of 00:00:00 [facility] Influenza High Dose 2016-11-14 Completed Unive rsity of 00:00:00 [facility] Influenza High Dose 2016-11-14 Completed Unive rsity of 00:00:00 [facility] Influenza High Dose 2016-11-14 Completed Unive rsity of 00:00:00 [facility] Influenza High Dose 2016-11-14 Completed Unive rsity of 00:00:00 [facility] Influenza High Dose 2016-11-14 Completed Unive rsity of 00:00:00 [facility] Influenza High Dose 2016-11-14 Completed Unive rsity of 00:00:00 [facility] Influenza High Dose 2016-11-14 Completed Unive rsity of 00:00:00 [facility] Influenza High Dose 2016-11-14 Completed Unive rsity of 00:00:00 [facility] Influenza High Dose 2016-11-14 Completed Unive rsity of 00:00:00 [facility] Influenza High Dose 2016-11-14 Completed Unive rsity of 00:00:00 [facility] Influenza High Dose 2016-11-14 Completed Unive rsity of 00:00:00 [facility] Influenza High Dose 2016-11-14 Completed Unive rsity of 00:00:00 [facility] Influenza High Dose 2016-11-14 Completed Unive rsity of 00:00:00 [facility] Influenza High Dose 2016-11-14 Completed Unive rsity of 00:00:00 [facility] Influenza High Dose 2016-11-14 Completed Unive rsity of 00:00:00 [facility] Influenza High Dose 2016-11-14 Completed Unive rsity of 00:00:00 [facility] Influenza High Dose 2016-11-14 Completed Unive rsity of 00:00:00 [facility] Influenza High Dose 2016-11-14 Completed Unive rsity of 00:00:00 [facility] Influenza High Dose 2016-11-14 Completed Unive rsity of 00:00:00 [facility] Influenza High Dose 2016-11-14 Completed Unive rsity of 00:00:00 [facility] Influenza High Dose 2016-11-14 Completed Unive rsity of 00:00:00 [facility] Influenza Hd 2016-11-14 Completed [facility] 00:00:00 of Medicine Influenza Hd 2016-11-14 Completed [facility] 00:00:00 of Medicine Influenza Hd 2016-11-14 Completed [facility] 00:00:00 of Medicine Vital Signs Vital Name Observation Time Observation Value Comments Source HEIGHT 2019-07-08 00:00:00 147.3 cm WEIGHT 2019-07-08 00:00:00 57.743 kg Systolic blood 2022-06-28 15:18:00 130 mm[Hg] Univer sity of pressure [facility] Diastolic blood 2022-06-28 15:18:00 55 mm[Hg] Unive rsity of pressure [facility] Heart rate 2022-06-28 14:36:00 75 /min [facility] Respiratory rate 2022-06-28 14:36:00 20 /min Univ ersity of [facility] Body height 2022-06-28 14:36:00 161.5 cm [facility] [place] Body weight 2022-06-28 14:36:00 65 kg [facility] BMI 2022-06-28 14:36:00 24.91 kg/m2 [facility] Oxygen saturation in 2022-06-28 14:36:00 98 /min University of Arterial blood by [facility] Pulse oximetry Branch Systolic blood 2022-06-09 18:20:00 126 mm[Hg] Univer sity of pressure [facility] Diastolic blood 2022-06-09 18:20:00 56 mm[Hg] Unive rsity of pressure [facility] Heart rate 2022-06-09 18:20:00 83 /min [facility] Oxygen saturation in 2022-06-09 18:20:00 93 /min [facility] blood by [facility] Pulse oximetry Branch Respiratory rate 2022-06-09 18:18:00 17 /min Univ ersity of [facility] Body height 2022-06-09 18:18:00 157.5 cm Universi ty of [facility] Body weight 2022-06-09 18:18:00 64.411 kg Universi ty of [facility] BMI 2022-06-09 18:18:00 25.97 kg/m2 Universi ty of [facility] Systolic blood 2022-06-07 21:32:00 126 mm[Hg] Univer sity of pressure [facility] Diastolic blood 2022-06-07 21:32:00 71 mm[Hg] Unive rsity of pressure [facility] Heart rate 2022-06-07 21:32:00 77 /min Universi ty of [facility] Body temperature 2022-06-07 21:32:00 37.28 Monique Univ ersity of [facility] Respiratory rate 2022-06-07 21:32:00 16 /min Univ ersity of [facility] Body height 2022-06-07 21:32:00 157.5 cm Universi ty of [facility] Body weight 2022-06-07 21:32:00 64.547 kg [facility]i ty of [facility] BMI 2022-06-07 21:32:00 26.03 kg/m2 [facility]i ty of [facility] Oxygen saturation in 2022-06-07 21:32:00 97 /min University Arterial blood by [facility] Pulse oximetry Branch WEIGHT 2022-06-01 05:00:00 64.638 kg HEIGHT 2022-05-28 08:00:00 157.5 cm WEIGHT 2022-05-28 08:00:00 64 kg WEIGHT 2022-06-01 05:00:00 64.638 kg HEIGHT 2022-05-28 08:00:00 157.5 cm WEIGHT 2022-05-28 08:00:00 64 kg Systolic blood 2022-05-25 19:34:00 128 mm[Hg] Univer sity of pressure [facility] Diastolic blood 2022-05-25 19:34:00 54 mm[Hg] Unive rsity of pressure [facility] Heart rate 2022-05-25 19:34:00 77 /min Universi ty of [facility] Body height 2022-05-25 19:34:00 157.5 cm Universi ty of [facility] Body weight 2022-05-25 19:34:00 62.551 kg [facility] BMI 2022-05-25 19:34:00 25.22 kg/m2 [facility] Oxygen saturation in 2022-05-25 19:34:00 95 /min [facility] of Arterial blood by [facility] Pulse oximetry Branch Systolic blood 2022-05-17 19:02:00 166 mm[Hg] Univer sity of pressure [facility] Diastolic blood 2022-05-17 19:02:00 75 mm[Hg] Unive rsity of pressure [facility] Heart rate 2022-05-17 19:02:00 104 /min [facility] Body temperature 2022-05-17 19:02:00 36.78 Monique Univ [facility] of [facility] Respiratory rate 2022-05-17 19:02:00 18 /min Univ ers[facility] of [facility] Body height 2022-05-17 19:02:00 144.8 cm [facility] Body weight 2022-05-17 19:02:00 64.955 kg [facility] BMI 2022-05-17 19:02:00 30.99 kg/m2 [facility] Oxygen saturation in 2022-05-17 19:02:00 98 /min [facility] Arterial blood by [facility] Pulse oximetry Branch Systolic blood 2022-04-08 19:24:00 134 mm[Hg] Univer sity of pressure [facility] Diastolic blood 2022-04-08 19:24:00 73 mm[Hg] Unive rsity of pressure [facility] Heart rate 2022-04-08 19:24:00 73 /min [facility] Body height 2022-04-08 19:24:00 157.5 cm [facility] Body weight 2022-04-08 19:24:00 64.864 kg [facility] BMI 2022-04-08 19:24:00 26.16 kg/m2 [facility] Systolic blood 2022-04-11 15:24:00 136 mm[Hg] Univer sity of pressure [facility] Diastolic blood 2022-04-11 15:24:00 76 mm[Hg] Unive rsity of pressure [facility] Heart rate 2022-04-11 15:24:00 83 /min [facility] Body height 2022-04-11 15:24:00 157.5 cm [facility] Body weight 2022-04-11 15:24:00 63.504 kg [facility] BMI 2022-04-11 15:24:00 25.61 kg/m2 [facility]i ty of [facility] Oxygen saturation in 2022-04-11 15:24:00 97 /min [facility]terial blood by [facility] Pulse oximetry Branch Systolic blood 2022-03-25 16:35:00 140 mm[Hg] [facility] Medicine Diastolic blood 2022-03-25 16:35:00 60 mm[Hg] [facility] Medicine Heart rate 2022-03-25 16:35:00 79 /min [facility] Respiratory rate 2022-03-25 16:35:00 16 /min [facility] Body height 2022-03-25 16:35:00 160 cm [facility] Body weight 2022-03-25 16:35:00 64.32 kg [facility] BMI 2022-03-25 16:35:00 25.12 kg/m2 [facility] Systolic blood 2022-03-11 20:35:00 136 mm[Hg] Univer sity of pressure [facility] Diastolic blood 2022-03-11 20:35:00 76 mm[Hg] Unive rsity of pressure [facility] Heart rate 2022-03-11 20:33:00 83 /min [facility] Body temperature 2022-03-11 20:33:00 37.11 Monique Univ [facility] Body height 2022-03-11 20:33:00 157.5 cm [facility] Body weight 2022-03-11 20:33:00 63.504 kg [facility] BMI 2022-03-11 20:33:00 25.61 kg/m2 [facility] Oxygen saturation in 2022-03-11 20:33:00 97 /min [facility] blood by [facility] [employer] [facility] P[facility] Systolic blood 2022-03-11 14:27:00 145 mm[Hg] Univer sity of pressure [facility] Diastolic blood 2022-03-11 14:27:00 68 mm[Hg] Unive rsity of pressure [facility] Heart rate 2022-03-11 14:26:00 78 /min [facility] Body height 2022-03-11 14:26:00 157.5 cm [facility] Body weight 2022-03-11 14:26:00 61.236 kg [facility] BMI 2022-03-11 14:26:00 24.69 kg/m2 [facility] Oxygen saturation in 2022-03-11 14:26:00 99 /min [facility] blood by [facility] [facility] Systolic blood 2022-02-25 23:37:00 131 mm[Hg] Univer sity of pressure [facility] Diastolic blood 2022-02-25 23:37:00 85 mm[Hg] Unive rsity of pressure [facility] Heart rate 2022-02-25 23:37:00 70 /min [facility] Body temperature 2022-02-25 23:37:00 36.83 Monique [facility] Respiratory rate 2022-02-25 23:37:00 18 /min [facility] Body height 2022-02-25 23:37:00 157.5 cm [facility] Body weight 2022-02-25 23:37:00 58.968 kg [facility] BMI 2022-02-25 23:37:00 23.78 kg/m2 [facility] Oxygen saturation in 2022-02-25 23:37:00 99 /min [facility]terial blood by [facility] [facility] Systolic blood 2022-01-21 21:34:00 133 mm[Hg] Univer sity of pressure [facility] Diastolic blood 2022-01-21 21:34:00 75 mm[Hg] Unive rsity of pressure [facility] Heart rate 2022-01-21 21:34:00 80 /min [facility] Body temperature 2022-01-21 21:34:00 36.5 Monique [facility] Body height 2022-01-21 21:34:00 144.8 cm [facility] Body weight 2022-01-21 21:34:00 62.596 kg [facility] BMI 2022-01-21 21:34:00 29.86 kg/m2 [facility] Oxygen saturation in 2022-01-21 21:34:00 96 /min [facility] Arterial blood by [facility] Pulse oximetry Branch Systolic blood 2021-12-24 20:33:00 135 mm[Hg] Univer sity of pressure [facility] Diastolic blood 2021-12-24 20:33:00 65 mm[Hg] Unive rsity of pressure [facility] Heart rate 2021-12-24 20:33:00 73 /min [facility] Body temperature 2021-12-24 20:33:00 36.56 Monique [facility] Body height 2021-12-24 20:33:00 144.8 cm [facility] Body weight 2021-12-24 20:33:00 62.596 kg [facility] BMI 2021-12-24 20:33:00 29.86 kg/m2 [facility] Oxygen saturation in 2021-12-24 20:33:00 96 /min [facility] Arterial blood by [facility] Pulse oximetry Branch Systolic blood 2021-12-03 18:46:00 148 mm[Hg] Univer sity of pressure [facility] Diastolic blood 2021-12-03 18:46:00 70 mm[Hg] Unive rsity of pressure [facility] Heart rate 2021-12-03 18:45:00 97 /min [facility] Body temperature 2021-12-03 18:45:00 37.33 Monique [facility] Body height 2021-12-03 18:45:00 144.8 cm [facility] Body weight 2021-12-03 18:45:00 62.143 kg [facility] BMI 2021-12-03 18:45:00 29.65 kg/m2 [facility] Oxygen saturation in 2021-12-03 18:45:00 96 /min [facility] Arterial blood by [facility] Pulse oximetry Branch Systolic blood 2021-11-26 20:46:00 158 mm[Hg] Univer sity of pressure [facility] Diastolic blood 2021-11-26 20:46:00 72 mm[Hg] Unive [facility]ity of [facility] [facility]ics Heart rate 2021-11-26 20:46:00 98 /min [facility] Body height 2021-11-26 20:46:00 160 cm [facility] Body weight 2021-11-26 20:46:00 61.689 kg [facility] BMI 2021-11-26 20:46:00 24.09 kg/m2 [facility] Systolic blood 2021-11-12 19:46:00 132 mm[Hg] [facility] Medicine Diastolic blood 2021-11-12 19:46:00 57 mm[Hg] [facility] Medicine Heart rate 2021-11-12 19:46:00 78 /min [facility] Body temperature 2021-11-12 19:46:00 36.67 Monique [facility] Respiratory rate 2021-11-12 19:46:00 16 /min [facility] Body height 2021-11-12 19:46:00 160 cm [facility] Body weight 2021-11-12 19:46:00 61.689 kg [facility] BMI 2021-11-12 19:46:00 24.09 kg/m2 [facility] Oxygen saturation in 2021-11-12 19:46:00 96 /min [facility] Arterial blood by [facility] Pulse oximetry Systolic blood 2021-11-02 18:10:00 152 mm[Hg] [facility] Diastolic blood 2021-11-02 18:10:00 73 mm[Hg] [facility] Heart rate 2021-11-02 18:10:00 83 /min [facility] Body height 2021-11-02 18:10:00 160 cm [facility] Body weight 2021-11-02 18:10:00 61.689 kg [facility] BMI 2021-11-02 18:10:00 24.09 kg/m2 [facility] Oxygen saturation in 2021-11-02 18:10:00 95 /min [facility] Arterial blood by [facility] Pulse oximetry Branch Systolic blood 2021-11-01 15:17:00 155 mm[Hg] [facility] Medicine Diastolic blood 2021-11-01 15:17:00 70 mm[Hg] [facility] Medicine Heart rate 2021-11-01 15:17:00 80 /min [facility] Body height 2021-11-01 15:17:00 160 cm [facility] Body weight 2021-11-01 15:17:00 58.968 kg [facility] BMI 2021-11-01 15:17:00 23.03 kg/m2 [facility] Systolic blood 2021-10-25 20:11:00 138 mm[Hg] [facility] [place] Diastolic blood 2021-10-25 20:11:00 64 mm[Hg] [facility] [place] Heart rate 2021-10-25 20:11:00 64 /min [facility] Body temperature 2021-10-25 20:11:00 36.5 Monique [facility] Body height 2021-10-25 20:11:00 160 cm [facility] Body weight 2021-10-25 20:11:00 61.689 kg [facility] BMI 2021-10-25 20:11:00 24.09 kg/m2 [facility] Oxygen saturation in 2021-10-25 20:11:00 96 /min [facility] Arterial blood by [facility] Pulse oximetry Branch Systolic blood 2021-07-09 21:36:00 132 mm[Hg] [facility] Diastolic blood 2021-07-09 21:36:00 65 mm[Hg] [facility] [place] [facility] [place] Body temperature 2021-07-09 21:36:00 36.33 Monique [facility] Heart rate 2021-07-09 21:10:00 73 /min [facility] Body height 2021-07-09 21:10:00 142.2 cm [facility] Body weight 2021-07-09 21:10:00 61.598 kg Universi ty [facility] BMI 2021-07-09 21:10:00 30.45 kg/m2 Universi ty [facility] Oxygen saturation in 2021-07-09 21:10:00 96 /min [facility] Arterial blood by [facility] Pulse oximetry Branch Systolic blood 2021-05-03 15:25:00 121 mm[Hg] [facility] pressure Medicine Diastolic blood 2021-05-03 15:25:00 65 mm[Hg] [facility] pressure Medicine Heart rate 2021-05-03 15:25:00 88 /min [facility] Systolic blood 2020-12-23 21:48:00 137 mm[Hg] [facility] pressure Medicine Diastolic blood 2020-12-23 21:48:00 69 mm[Hg] [facility] of pressure Medicine Heart rate 2020-12-23 21:48:00 73 /min [facility] ollege of Medicine Body temperature 2020-12-23 21:48:00 36.83 Monique [facility] Respiratory rate 2020-12-23 21:48:00 15 /min [facility] Body height 2020-12-23 21:48:00 [facility]6 [facility] Body weight 2020-12-23 21:48:00 58.968 [facility] BMI 2020-12-23 21:48:00 22.31 kg/m2 [facility] Systolic blood 2020-05-04 15:57:00 131 mm[Hg] [facility] pressure Medicine Diastolic blood 2020-05-04 15:57:00 60 mm[Hg] [facility] pressure Medicine Heart rate 2020-05-04 15:57:00 67 /min [facility] ollege of Medicine Respiratory rate 2020-05-04 15:57:00 18 /min [facility] Body height 2020-05-04 15:57:00 147.3 cm [facility] C ollege of Medicine Body weight 2020-05-04 15:57:00 58.514 kg [facility] BMI 2020-05-04 15:57:00 26.96 kg/m2 [facility] ollege of Medicine Systolic blood 2020-01-06 16:58:00 146 mm[Hg] [facility] of pressure Medicine Diastolic blood 2020-01-06 16:58:00 71 mm[Hg] [facility] Medicine Heart rate 2020-01-06 16:58:00 88 /min [facility] ollege of Medicine Body temperature 2020-01-06 16:58:00 36.44 Monique [facility] Respiratory rate 2020-01-06 16:58:00 16 /min [facility] Body height 2020-01-06 16:58:00 144.8 cm [facility] ol[facility] of [facility] Body weight 2020-01-06 16:58:00 58.968 kg [facility] BMI 2020-01-06 16:58:00 28.13 kg/m2 [facility] Systolic blood 2020-01-06 16:58:00 146 mm[Hg] [facility] pressure Medicine Diastolic blood 2020-01-06 16:58:00 71 mm[Hg] [facility] Medicine Heart rate 2020-01-06 16:58:00 88 /min [facility] ollege of Medicine Body temperature 2020-01-06 16:58:00 36.44 Monique [facility] Respiratory rate 2020-01-06 16:58:00 16 /min [facility] Body height 2020-01-06 16:58:00 144.8 cm [facility] Body weight 2020-01-06 16:58:00 58.968 [address] [facility] BMI 2020-01-06 16:58:00 28.13 kg/m2 [facility] ollege of Medicine Systolic blood 2019-10-07 14:05:00 127 mm[Hg] [facility] of pressure Medicine Diastolic blood 2019-10-07 14:05:00 67 mm[Hg] [facility] pressure Medicine Heart rate 2019-10-07 14:05:00 70 /min [facility] Body temperature 2019-10-07 14:05:00 36.39 Monique [facility] Respiratory rate 2019-10-07 14:05:00 16 /min [facility] Body height 2019-10-07 14:05:00 162.6 cm [facility] ol[facility] of Medicine Body weight 2019-10-07 14:05:00 58.968 kg [facility] BMI 2019-10-07 14:05:00 22.31 kg/m2 [facility] Systolic blood 2019-10-07 14:05:00 127 mm[Hg] [facility] Medicine Diastolic blood 2019-10-07 14:05:00 67 mm[Hg] [facility] Medicine Heart rate 2019-10-07 14:05:00 70 /min [facility] Body temperature 2019-10-07 14:05:00 36.39 Monique [facility] or [facility] Respiratory rate 2019-10-07 14:05:00 16 /min [facility] Body height 2019-10-07 14:05:00 162.6 cm [facility] Body weight 2019-10-07 14:05:00 58.968 kg [facility] BMI 2019-10-07 14:05:00 22.31 kg/m2 [facility] HEIGHT 2019-07-08 00:00:00 147.3 cm WEIGHT [...] Date / Time Performing Clinician Source Performed HOME HEALTH - OTHER 2022-06-24 05:01:00 Doctor Unassigned, [facility] [place] [facility] NM MYOCARDIUM PERFUSION 2022-06-23 16:20:00 Lo, Sendil K.[facility]. [facility] STRESS AND REST [facility] [place] NUCLEAR STRESS TEST 2022-06-23 16:20:00 Lo, Sendil K.[facility]. [facility] CARDIOLOGY (DO NOT SCHED) Medica l Branch NM MYOCARDIUM PERFUSION 2022-06-23 16:20:00 Lo, Sendil K.[facility]. [facility] STRESS AND REST Medical Branch NUCLEAR STRESS TEST 2022-06-23 16:20:00 Lo, Sendil [facility] CARDIOLOGY (DO NOT SCHED) Medica l Branch NM MYOCARDIUM PERFUSION 2022-06-23 16:20:00 Lo, Sendil [facility]. [facility] STRESS AND REST [facility] [place] NUCLEAR STRESS TEST 2022-06-23 16:20:00 Lo, Sendil [facility] CARDIOLOGY (DO NOT SCHED) Medica l Branch NM MYOCARDIUM PERFUSION 2022-06-23 16:20:00 Lo, Sendil [facility]. [facility] STRESS AND REST [facility] [place] NUCLEAR STRESS TEST 2022-06-23 16:20:00 Lo, Sendil [facility] CARDIOLOGY (DO NOT SCHED) Medica l Branch BASIC METABOLIC PANEL 2022-06-11 13:49:00 Lo, Sendil K.[facility]. [facility] (NA, K, CL, CO2, GLUCOSE, [facility] BUN, CREATININE, CA) N-TERMINAL PRO-BNP 2022-06-11 13:49:00 Lo, Sendil [facility] COMP. METABOLIC PANEL 2022-06-10 14:37:00 Lo, [id number] N-TERMINAL PRO-BNP 2022-06-10 14:37:00 Lo, Sendil [facility]. [facility] HB ECG ROUTINE & RHYTHM 2022-05-25 19:30:49 Lo, Sendil K.[facility]. [facility] STRIP [facility] PNEUMOCOCCAL 20 CONJUGATE 2022-05-17 19:39:37 [facility] VACCINE Medical [facility] ASSIGNMENT OF BENEFITS 2022-05-17 18:46:13 Doctor Unassigned, Un [facility] EXTERNAL PROVIDER RECORDS 2022-04-12 06:01:00 Doctor Unaspring, [facility] [place] REFERRAL- 2022-04-03 06:01:00 Doctor Unassigned, [facility] REQUEST/RESPONSE [facility] CBC WITH DIFF 2022-03-11 21:42:00 [facility] URINE CULTURE 2022-03-11 21:42:[address] [facility] REFERRAL- 2022-02-23 06:01:00 Doctor Unassregine, [facility] REQUEST/RESPONSE [facility] EMERGENCY SERVICES 2021-12-31 06:01:00 Doctor Unassregine, [facility] AGREEMENTS AND [facility] AUTHORIZATIONS FLU 2021-12-24 21:05:18 Chary Donald [facility] VACC(),65+YR,0.5 Medica l Branch ML,IM,ADJUVANTED,QUAD(FLU AD) MR BRAIN WO CONTRAST 2021-11-19 15:41:00 Won Matt Un [facility] EXTERNAL PROVIDER RECORDS 2021-11-18 05:01:00 Doctor Rene, [facility] Name [facility] COMPREHENSIVE METABOLIC 2021-11-12 20:56:00 Italia Preston [facility] PANEL Medicine HEMOGLOBIN A1C 2021-11-12 20:56:00 Italia Preston [facility] CBC W/AUTO DIFF WITH 2021-11-12 20:56:00 Italia Preston [facility] PLATELETS Medicine THYROID CASCADE PROFILE 2021-11-12 20:56:00 Italia Preston [facility] COMPREHENSIVE METABOLIC 2021-11-12 15:56:00 [facility] PANEL [facility] HEMOGLOBIN A1C 2021-11-12 15:56:00 [facility] CBC W/AUTO DIFF WITH 2021-11-12 15:56:00 [facility] PLATELETS Medicine THYROID CASCADE PROFILE 2021-11-12 15:56:00 [facility] HANDICAPPED PLACARD 2021-11-12 15:45:36 [facility] EXTERNAL PROVIDER RECORDS 2021-11-01 05:01:00 Doctor Unassigned, [facility] [place] POCT URINALYSIS DIPSTICK 2021-11-01 00:00:00 Keerthi Cuenca [facility] AUTHORIZATION TO RELEASE 2021-10-25 05:01:00 Doctor Ilianassigned, [facility] PHI TO [facility] URINALYSIS 2021-09-03 13:22:[address] [facility] LIPASE 2021-09-03 13:08:[address] [facility] COMP. METABOLIC PANEL 2021-09-03 13:08:[address] [facility] ([id number]) [facility] CBC WITH DIFF 2021-09-03 13:08:[address] [facility] AMB REF TO UROLOGY [facility] 2021-05-03 10:53:33 [facility] POCT URINALYSIS DIPSTICK 2020-12-23 00:00:00 Keerthi Cuenca [facility] POCT URINALYSIS DIPSTICK 2020-12-23 00:00:00 [facility] POCT URINALYSIS DIPSTICK 2020-01-06 00:00:00 Keerthi Cuenca [facility] BASIC METABOLIC PANEL 2019-10-07 14:32:00 Keerthi Cuenca [facility] MAGNESIUM 2019-10-07 14:32:00 Keerthi Cuenca [facility] URIC ACID 2019-10-07 14:32:00 Keerthi Cuenca [facility] Plan of Care Planned Activity Planned [...] (2 - Td or Tdap)] Future Scheduled 2022-10-[address] [facility] Test 00:00:00 (Season Ended) [code Medical Center = INFLUENZA VACCINE (Season Ended)] Future Scheduled 2022-03-25 Diabetic foot [facility] Col lege Test 10:27:27 examination of Medicine (regime/therapy) [code = 059107655] Future Scheduled 2022-03-25 Annual Diabetic [facility] C ollege Test 10:27:27 Retinopathy of Medicine Screening [code = Annual Diabetic Retinopathy Screening] Future Scheduled 2022-03-25 ZOSTER VACCINE (1 of [facility] College Test 10:27:27 2) [code = ZOSTER of Medicin e VACCINE (1 of 2)] Future Scheduled 2022-03-25 Screening for [facility] Col [facility]ge Test 10:27:27 osteoporosis of Medicine (procedure) [code = 921194600] Future Scheduled 2022-03-25 Pneumococcal 65+ (2 [employer] Test 10:27:27 - PCV) [code = of Medicine Pneumococcal 65+ (2 - PCV)] Future Scheduled 2022-03-25 COVID-19 Vaccine (2 [employer] Test 10:27:27 - Moderna series) of Medicin e [code = COVID-19 Vaccine (2 - Moderna series)] Future Scheduled 2022-03-25 Medicare Awv [facility] Kristine ege Test 10:27:27 (Initial) [code = of Medicin e Medicare Awv (Initial)] Future Scheduled 2022-03-25 FLU VACCINE > 6 [facility] C ollege Test 10:27:27 MONTHS [code = FLU of Medici ne VACCINE > 6 MONTHS] Future Scheduled 2022-03-25 Hemoglobin A1c [facility] Co [facility]lege Test 10:27:27 measurement of Medicine (procedure) [code = 50003513] Future Scheduled 2022-03-25 Fall Screen [code = [employer] Test 10:27:27 Fall Screen] of Medicine Future Scheduled 2022-03-25 TETANUS SHOT (ADULT) [place] [employer] Test 10:27:27 [code = TETANUS SHOT [...] 19:39:46 examination of Medicine (regime/therapy) [code = 070010869] Future Scheduled 2021-11-15 ANNUAL DIABETIC Art C ollege Test 19:39:46 RETINOPATHY of Medicine SCREENING [code = ANNUAL DIABETIC RETINOPATHY SCREENING] Future Scheduled 2021-11-15 ZOSTER VACCINE (1 of [facility] Test 19:39:46 2) [code = ZOSTER of Medicin e VACCINE (1 of 2)] Future Scheduled 2021-11-15 Screening for [facility]ge Test 19:39:46 osteoporosis of Medicine (procedure) [code = 564832994] Future Scheduled 2021-11-15 Pneumococcal 65+ (2 [employer] Test 19:39:46 - PCV) [code = of Medicine Pneumococcal 65+ (2 - PCV)] Future Scheduled 2021-11-15 MEDICARE AWV [facility] Test 19:39:46 (Initial) [code = of Medicin e MEDICARE AWV (Initial)] Future Scheduled 2021-11-15 COVID-19 Vaccine (2 [employer] Test 19:39:46 - Moderna series) of Medicin e [code = COVID-19 Vaccine (2 - Moderna series)] Future Scheduled 2021-11-15 FLU VACCINE > 6 [facility] C ollege Test 19:39:46 MONTHS [code = FLU of Medici ne VACCINE > 6 MONTHS] Future Scheduled 2021-11-15 Hemoglobin A1c [facility] Co [facility]lege Test 19:39:46 measurement of Medicine (procedure) [code = 11377841] Future Scheduled 2021-11-15 FALL SCREEN [code = [employer] Test 19:39:46 FALL SCREEN] of Medicine Future Scheduled 2021-11-15 TETANUS SHOT (ADULT) [facility] Test 19:39:46 [code = TETANUS SHOT of Medi cine (ADULT)] Future Scheduled 2021-11-14 Diabetic foot [facility] Col [facility]ge Test 02:33:41 examination of Medicine (regime/therapy) [code = [id number]] Future Scheduled 2021-11-14 ANNUAL DIABETIC [facility] C [facility]lege Test 02:33:41 RETINOPATHY of Medicine SCREENING [code = ANNUAL DIABETIC RETINOPATHY SCREENING] Future Scheduled 2021-11-14 ZOSTER VACCINE (1 of [place] [facility] Test 02:33:41 2) [code = ZOSTER of Medicin e VACCINE (1 of 2)] Future Scheduled 2021-11-14 Screening for [facility]ge Test 02:33:41 osteoporosis of Medicine (procedure) [code = 101895799] Future Scheduled 2021-11-14 Pneumococcal 65+ (2 [employer] Test 02:33:41 - PCV) [code = of Medicine Pneumococcal 65+ (2 - PCV)] Future Scheduled 2021-11-14 MEDICARE AWV [facility] Test 02:33:41 (Initial) [code = of Medicin e MEDICARE AWV (Initial)] Future Scheduled 2021-11-14 COVID-19 Vaccine (2 [employer] Test 02:33:41 - Moderna series) of Medicin e [code = COVID-19 Vaccine (2 - Moderna series)] Future Scheduled 2021-11-14 FLU VACCINE > 6 [facility] C [facility]lege Test 02:33:41 MONTHS [code = FLU of Medici ne VACCINE > 6 MONTHS] Future Scheduled 2021-11-14 Hemoglobin A1c [facility] Co [facility]lege Test 02:33:41 measurement of Medicine (procedure) [code = 21789360] Future Scheduled 2021-11-14 FALL SCREEN [code = [employer] Test 02:33:41 FALL SCREEN] of Medicine Future Scheduled 2021-11-14 TETANUS SHOT (ADULT) [employer] Test 02:33:41 [code = TETANUS [...] Future Scheduled 2021-05-04 ZOSTER VACCINE (1 of [place] [employer] Test 15:51:29 2) [code = ZOSTER of Medicin e VACCINE (1 of 2)] Future Scheduled 2021-05-04 Screening for Art [employer] Test 15:51:29 osteoporosis of Medicine (procedure) [code = 727560577] Future Scheduled 2021-05-04 Pneumococcal 65+ (1 [employer] Test 15:51:29 of 1 - PPSV23) [code of Medi cine = Pneumococcal 65+ (1 of 1 - PPSV23)] Future Scheduled 2021-05-04 MEDICARE AWV [facility] Test 15:51:29 (Initial) [code = of Medicin e MEDICARE AWV (Initial)] Future Scheduled 2021-05-04 FLU VACCINE > 6 [facility] C [facility]lege Test 15:51:29 MONTHS [...] Medicine Future Scheduled 2021-05-04 TETANUS SHOT (ADULT) [employer] Test 15:51:29 [code = TETANUS SHOT of Medi cine (ADULT)] Future Scheduled 2021-05-04 US RENAL BILATERAL Expected: [employer] Test 00:00:00 [code = 10774] 05/04/2021, of Medicine Expires: 05/04/2021 Future Scheduled [...] SCREENING] Future Scheduled 2021-01-03 COVID-19 Vaccine (1) [employer] Test 08:34:34 [code = COVID-19 of Medicine Vaccine (1)] Future Scheduled 2021-01-03 ZOSTER VACCINE (1 of [place] [employer] Test 08:34:34 2) [code = ZOSTER of Medicin e VACCINE (1 of 2)] Future Scheduled 2021-01-03 Screening for [facility] Col [facility]ge Test 08:34:34 osteoporosis of Medicine (procedure) [code = 783529630] Future Scheduled 2021-01-03 Pneumococcal 65+ (1 [employer] Test 08:34:34 of 1 - PPSV23) [code of Medi cine = Pneumococcal 65+ (1 of 1 - PPSV23)] Future Scheduled 2021-01-03 MEDICARE AWV [facility] Test 08:34:34 (Initial) [code = of Medicin e MEDICARE AWV (Initial)] Future Scheduled 2021-01-03 FLU VACCINE > 6 [facility] C [facility]lege Test 08:34:34 MONTHS [code = FLU of Medici ne VACCINE > 6 MONTHS] Future Scheduled 2021-01-03 FALL SCREEN [code = [facility] or [facility] Test 08:34:34 FALL SCREEN] of Medicine Future Scheduled 2021-01-03 TETANUS SHOT (ADULT) [facility] Test 08:34:34 [code = TETANUS SHOT of Medi cine (ADULT)] Future Scheduled 2020-10-[address] [facility] Test 00:00:00 (#1) [code = Medical Center INFLUENZA VACCINE (#1)] Diagnostic Test 2020-07-11 US RENAL BILATERAL Expected: [facility] Pending 00:00:00 [code = 35746] 07/11/2020, of Medicine Expires: 01/11/2021 Future Scheduled [...] Test 00:00:00 of 2) [code = [facility] SHINGLES VACCINES (1 of 2)] Future Scheduled 1948 COVID-19 VACCINE (1) [facility] Test 00:00:00 [code = COVID-[address] VACCINE (1)] Future Scheduled 1936 COVID-[address] [facility] Test 00:00:00 (#1) [code = [facility] COVID-19 VACCINE (#1)] Future Scheduled 1936 COVID-[address] [facility] Test 00:00:00 (#1) [code = [facility] COVID-19 VACCINE (#1)] Future Scheduled 1936 COVID-[address] [facility] Test 00:00:00 (#1) [code = [facility] COVID-19 VACCINE (#1)] Future Scheduled 1936 COVID-[address] [facility] Test 00:00:00 (#1) [code = [facility] COVID-19 VACCINE (#1)] Future Scheduled 1936 COVID-[address] [facility] Test 00:00:00 (#1) [code = [facility] COVID-19 VACCINE (#1)] Future Scheduled 1936 COVID-[address] [facility] Test 00:00:00 (#1) [code = [facility] COVID-19 VACCINE (#1)] Future Scheduled 1936 COVID-[address] [facility] Test 00:00:00 (#1) [code = [facility] COVID-19 VACCINE (#1)] Future Scheduled 1936 COVID-[address] [facility] Test 00:00:00 (#1) [code = [facility] COVID-19 VACCINE (#1)] Future Scheduled 1936 COVID-[address] [facility] Test 00:00:00 (#1) [code = [facility] COVID-19 VACCINE (#1)] Future Scheduled 1936 DXA SCAN [code = DXA [facility] Test 00:00:00 SCAN] [facility] Future Scheduled 1936 DXA SCAN [code = DXA [facility] Test 00:00:00 SCAN] [facility] Future Scheduled 1936 DXA SCAN [code [...] Medical Center Future Scheduled PTH,INTACT,WITH Ordered: [facility] C [facility]lege Test CALCIUM,PO4,CREAT 10/07/2019 of Medicin e [code = NOCPT] Future Scheduled TETANUS SHOT (ADULT) [employer] Test [code = TETANUS SHOT of Medi cine (ADULT)] Future Scheduled ZOSTER VACCINE (1 of [place] [employer] Test 2) [code = ZOSTER of Medicin e VACCINE (1 of 2)] Future Scheduled OSTEOPOROSIS [facility] Test SCREENING [code = of Medicin e OSTEOPOROSIS SCREENING] Future Scheduled MEDICARE AWV [facility] Test (Initial) [code = of Medicin e MEDICARE AWV (Initial)] Future Scheduled FLU VACCINE > 6 [facility] C ollege Test MONTHS [code = FLU of Medici ne VACCINE > 6 MONTHS] Future Scheduled FALL SCREEN [code = [employer] [facility] FALL SCREEN] of Medicine Future Scheduled BMI FOLLOW UP PLAN [facility] r College Test [code = BMI FOLLOW of Medici ne UP PLAN] Future Scheduled ZOSTER VACCINE (1 of [place] [employer] Test 2) [code = ZOSTER of Medicin e VACCINE (1 of 2)] Future Scheduled OSTEOPOROSIS [facility] Test SCREENING [code = of Medicin e OSTEOPOROSIS SCREENING] Future Scheduled MEDICARE IPPE [facility] Col lege Test (WELCOME TO of [facility] MEDICARE) [code = MEDICARE IPPE (WELCOME TO MEDICARE)] Future Scheduled FLU VACCINE > 6 [facility] C ollege Test MONTHS [code = FLU of Medici ne VACCINE > 6 MONTHS] Future Scheduled FALL SCREEN [code = [employer] Test FALL SCREEN] of Medicine Future Scheduled TETANUS SHOT (ADULT) [place] [employer] Test [code = TETANUS SHOT of Medi cine (ADULT)] Future Scheduled COVID-19 Vaccine (1) [place] [employer] Test [code = COVID-19 of Medicine Vaccine (1)] Future Scheduled BMI FOLLOW UP PLAN [employer] Test [code = BMI FOLLOW of Medici ne UP PLAN] Future Scheduled ZOSTER VACCINE (1 of [place] [employer] Test 2) [code = ZOSTER of Medicin e VACCINE (1 of 2)] Future Scheduled Screening for [facility] Col lege Test osteoporosis of Medicine (procedure) [code = 263575126] Future Scheduled MEDICARE IPPE [facility] Col lege Test (WELCOME TO of Medicine MEDICARE) [code = MEDICARE IPPE (WELCOME TO MEDICARE)] Future Scheduled FLU VACCINE > 6 [facility] C ollege Test MONTHS [code = FLU of Medici ne VACCINE > 6 MONTHS] Future Scheduled FALL SCREEN [code = [employer] FALL SCREEN] of Medicine Future Scheduled TETANUS SHOT (ADULT) [place] [employer] Test [code = TETANUS SHOT of Medi cine (ADULT)] Encounters Start End Encounter Admission Attending Care Care Encounter Source Date/Time Date/Time Type Type Clinicians Facility Department ID 2020-11-17 Inpatient ER GUILLERMO [facility] Urology [id number] [facility] 14:52:09 LILIANA 2022-10-07 2022-10-07 Outpatient WON SALDIVAR [facility] [id number] Univers 11:20:00 11:20:00 WON MATT [facility] 2022-08-09 2022-08-09 Outpatient ANGELA LIZ [facility] [id number] Univers 10:00:00 10:00:00 ANGELA CUNNINGHAM [facility] 2022-07-12 2022-07-12 Outpatient Braulio LO [facility] [id number] Univers 14:00:00 14:00:00 SENDIL [facility] 2022-07-08 2022-07-08 Auto Research Engineer Lab, Ang - Db [facility] 1.2.840.1 14 [id number] Univers 09:00:00 09:15:00 Visit Angela Cunningham [facility] 350.1.13.10 [facility] 4.2.7.2.686 Kilo as KRZYSZTOF?BLEA [id number] [address] MEDICAL OFFICE BUILDING 2022-07-08 2022-07-08 Outpatient ANGELA LIZ [facility] [id number] Univers 09:00:00 09:00:00 ANGELA CUNNINGHAM karen [facility] 2022-07-08 2022-07-08 [facility] 1.2.840.114 [id number] Univers 00:00:00 00:00:00 [facility] 350.1.13.10 ity of [place] 4.2.7.2.686 Kilo as KRZYSZTOF?BLEA [id number] [address] MEDICAL OFFICE [facility] 2022-07-01 2022-07-01 Outpatient R OCTAVIO ANGELA [facility] [id number] Univers 11:20:00 11:20:00 ANGELA CUNNINGHAM karen [facility] 2022-06-28 2022-06-28 Outpatient R ANGEAL CUNNINGHAM [facility] [id number] Univers 09:20:00 10:19:27 ANGELA CUNNINGHAM [facility] 2022-06-28 2022-06-28 Office [facility] 1.2.840.114 [id number] [facility] 09:20:00 10:19:27 Visit [facility] 350.1.13.10 ity of [place] 4.2.7.2.686 Kilo as KRZYSZTOF?BLEA [id number] [address] OFFICE [facility] 2022-06-24 2022-06-24 [facility] 1.2.373.547 [id number] Univers 00:00:00 00:00:00 Ceci ALBRECHT 350.1.13.10 it[place] of [place] [phone] [place] 519719 [facility] 2022-06-24 2022-06-24 Orders Doctor LILLIANA 1.2.840.114 [id number] Univers 00:00:00 00:00:00 Only Unassigned, MACKENZIE 350.1.13.10 ity of [place] [facility] 4.2.7.2.686 Kilo as [phone] [address] 2022-06-23 2022-06-23 [facility] 1.2.840.114 [id number] Univers 08:13:16 23:59:00 Encounter Sendil BritanyGertrudeTyrellGertrude [place] 350.1.13.10 ity of [place] 4.2.7.2.686 [facility] [id number] [address] 2022-06-23 2022-06-23 [facility] 1.2.840.114 [id number] Univers 08:12:54 08:12:54 Encounter Sendil BritanyGertrudeTyrellGertrude [place] 350.1.13.10 ity of [place] 4.2.7.2.686 [facility] [id number] [address] 2022-06-23 2022-06-23 [facility] 1.2.840.114 [id number] Univers 08:12:41 08:12:41 Encounter Sendil BritanyGertrudeTyrellGertrude [place] 350.1.13.10 ity of [place] 4.2.7.2.686 [facility] [id number] [address] 2022-06-23 2022-06-23 Outpatient R [facility] [id number] Univers 08:12:25 08:11:00 SENDIL ity of [facility] 2022-06-23 2022-06-23 [facility] 1.2.840.114 [id number] Univers 08:00:00 08:11:00 Encounter Sendil BritanyGertrudeTyrellGertrude [place] 350.1.13.10 ity of [place] 4.2.7.2.686 [facility] [phone] [address] 2022-06-21 2022-06-21 Outpatient R [facility] [id number] Univers 09:00:00 09:00:00 SENDIL ity of [facility] 2022-06-21 2022-06-21 Telephone [facility] 1.2.071.375 [id number] Univers 00:00:00 00:00:00 Sendil ArianneTyrellGertrude [place] 350.1.13.10 ity of [place] 4.2.7.2.686 [facility] PROFESSIO [phone] [facility] 059 [facility] 2022-06-20 2022-06-20 Auto Research Engineer Abdiel, Adc Lab Main [facility] 1.2.8 40.114 [id number] Univers 07:45:00 08:00:00 Visit Ceci Lo 350.1.13. 10 it[place] of [place] [id number] [facility] 353 [facility] 2022-06-20 2022-06-20 [facility] [id number] Univers 07:45:00 07:45:00 SENDIL ity [facility] 2022-06-16 2022-06-16 Telephone [facility] 1.2.118.285 [id number] Univers 00:00:00 00:00:00 Ceci ALBRECHT 350.1.13.10 it[place] [id number] [address] 2022-06-16 2022-06-16 [facility] 1.2.036.040 [id number] Univers 00:00:00 00:00:00 Ceci ALBRECHT 350.1.13.10 it[place] of [place] [id number] [address] 2022-06-15 2022-06-15 Telephone [facility] 1.2.159.242 [id number] Univers 00:00:00 00:00:00 Ceci ALBRECHT 350.1.13.10 it[place] of [place] [id number] [address] 2022-06-13 2022-06-13 Outpatient R TERESITA [facility] [id number] Univers 15:30:00 15:30:00 SENDIL ity [facility] 2022-06-13 2022-06-13 Telephone [facility] 1.2.562.834 [id number] Univers 00:00:00 00:00:00 Sendbekah ALBRECHT 350.1.13.10 it[place] of [place] [id number] Oh dical NAL 059 [facility] 2022-06-11 2022-06-11 Auto Research Engineer Abdiel, Adc Lab Main [facility] 1.2.8 40.114 [id number] Univers 08:30:00 08:45:00 Visit Ceci Lo 350.1.13. 10 [facility] 4.2.7.2.[place] [phone] Oh dical NAL 353 [facility] 2022-06-11 2022-06-11 Outpatient R TERESITA [facility] [id number] Univers 08:30:00 08:30:00 SENDIL ity [facility] 2022-06-10 2022-06-10 Auto Research Engineer Abdiel, Adc Lab Main [facility] 1.2.8 40.114 [id number] Univers 09:15:00 09:30:00 Visit Ceci Lo 350.1.13. 10 [place].2.[place] [id number] Oh dic[address] 2022-06-10 2022-06-10 Outpatient R TERESITA [facility] [id number] Univers 09:15:00 09:15:00 SENDIL ity [facility] 2022-06-10 2022-06-10 Refshruthi CunninghamLINCOLN [facility] 1..840.114 [id number] Univers 00:00:00 00:00:00 [facility] 350.1.13.10 ity of [place] 4.2.7.2.686 Kilo as KRZYSZTOF?BLEA [phone] Oh [address] 2022-06-10 2022-06-10 Telephone Teresita [facility] 1.2.310.322 [id number] Univers 00:00:00 00:00:00 Ceci ALBRECHT 350.1.13.10 ity [facility] 4.2.7.2.[place] [id number] [facility] NAL [address] [place] [address] 2022-06-09 2022-06-09 Outpatient R TERESITA [facility] [id number] Univers 13:30:00 14:26:56 SENDIL itkaren [facility] 2022-06-09 2022-06-09 Office [facility] 1.2.840.114 [id number] Univers 13:30:00 14:26:56 Visit Ceci AcuñaTyrellGertrude [facility] 350.1.13.10 ity of [facility] 4.2.7.2.[place] [id number] [address] 2022-06-08 2022-06-08 Patient [facility] 1.2.840.114 [id number] Univers 00:00:00 00:00:00 Outreach [facility] 350.1.13.10 i ty of [place] 4.2.7.2.686 Kilo as KRZYSZTOF?BLEA [id number] [address] OFFICE [facility] 2022-06-07 2022-06-07 Outpatient R ANGELA CUNNINGHAM [facility] [id number] Univers 16:20:00 17:24:14 ANGELA CUNNINGHAM [facility] 2022-06-07 2022-06-07 Office [facility] 1.2.840.114 [id number] Univers 16:20:00 17:24:14 Visit [facility] 350.1.13.10 ity of [facility] 4.2.7.2.686 Kilo as KRZYSZTOF?BLEA [id number] [address] 2022-06-07 2022-06-07 Telephone [facility] 1.2.643.278 [id number] Univers 00:00:00 00:00:00 [facility] 350.1.13.10 ity of [place] 4.2.7.2.686 Kilo as KRZYSZTOF?BLEA [id number] [address] OFFICE [facility] 2022-06-02 2022-06-02 Outpatient R ANGELA CUNNINGHAM [facility] [id number] Univers 14:20:00 14:20:00 ANGELA CUNNINGHAM [facility] 2022-05-28 2022-06-01 Inpatient ER CHANGENH, [facility] Medical ICU 20 [id number] [facility] 07:43:00 15:42:00 STELLA 2022-06-01 2022-06-01 Outpatient R TERESITA [facility] [id number] Univers 15:30:00 15:30:00 SENDIL karina [facility] 2022-05-25 2022-05-25 Outpatient R TERESITA [facility] [id number] Univers 14:00:00 15:24:40 SENDIL itkaren [facility] 2022-05-25 2022-05-25 Office [facility] 1.2.840.114 [id number] Univers 14:00:00 15:24:40 Visit Ceci ALBRECHT 350.1.13.10 it[place] of [place] [id number] Oh diccleopatra PANTOJA 059 [facility] 2022-05-17 2022-05-17 Outpatient R ANGELA CUNNINGHAM [facility] [id number] Univers 13:40:00 15:02:27 ANGELA CUNNINGHAM [facility] 2022-05-17 2022-05-17 Office [facility] 1.2.840.114 [id number] Univers 13:40:00 15:02:27 Visit [facility] 350.1.13.10 ity of [place] 4.2.7.2.686 Kilo as KRZYSZTOF?BLEA [phone] Oh dical KNEY [address] MEDICAL OFFICE [facility] 2022-05-17 2022-05-17 Orders Doctor LILLIANA 1.2.840.114 [id number] Univers 00:00:00 00:00:00 Only Unassigned, MACKENZIE 350.1.13.10 ity of [place] [facility] 4.2.7.2.686 Kilo as [id number] [address] 2022-04-23 2022-04-23 Refill [facility] 1.2.840.114 [id number] Univers 00:00:00 00:00:00 [facility] 350.1.13.10 ity of [place] 4.2.7.2.686 Kilo as KRZYSZTOF?BLEA [id number] [facility] [address] MEDICAL OFFICE [facility] 2022-04-22 2022-04-22 Refshruthi Cunningham [facility] 1.2.840.114 [id number] Univers 00:00:00 00:00:00 [facility] 350.1.13.10 ity of [place] 4.2.7.2.686 Kilo as KRZYSZTOF?BLEA [id number] [facility] [address] MEDICAL OFFICE [facility] 2022-04-15 2022-04-15 Outpatient R OCTAVIO [facility] [id number] Univers 09:20:00 09:20:00 [facility] 2022-04-12 2022-04-12 Orders Doctor TIJERINA 1..840.114 [id number] Univers 00:00:00 00:00:00 Only Unassigned, MACKENZIE 350.1.13.10 ity of [place] [facility] 4.2.7.2.686 Kilo as [id number] [address] 2022-04-11 2022-04-11 Outpatient WON SALDIVAR [facility] [id number] Univers 09:00:00 09:00:00 WON MATT karen [facility] 2022-04-08 2022-04-08 Outpatient WON SALDIVAR [facility] [id number] Univers 13:40:00 14:51:58 WON MATT [facility] 2022-04-08 2022-04-08 Office Vernell [facility] 1.2.840.114 [id number] Univers 13:40:00 14:51:[address] [facility] 350.1.13.10 ity of [place] 4.2.7.2.686 Kilo as KRZYSZTOF?BLEA [id number] [facility] 092 [facility] OFFICE [facility] 2022-04-08 2022-04-08 Nurse Nurse, Lucie Neurology [facility] 1. 2.840.114 [id number] Univers 13:00:00 14:50:23 Visit Unknown, [facility] HEALTH 350.1.13.10 ity of [place] 4.2.7.2.686 Kilo as KRZYSZTOF?BLEA [id number] [facility] [address] MEDICAL OFFICE BUILDING 2022-04-03 2022-04-03 Orders Doctor LILLIANA 1.2.840.114 [id number] Univers 00:00:00 00:00:00 Only Unassigned, MACKENZIE 350.1.13.10 ity of [place] [facility] 4.2.7.2.686 Kilo as [id number] [facility] [address] 2022-03-25 2022-03-25 Office Jh ROSE 1.2.840.114 10 [id number] [facility] 10:20:00 11:00:00 Visit Emma AMBULATOR 350.1.13.21 College Y 0.2.7.2.686 of [id number] [facility] 335 e 2022-03-24 2022-03-24 Telephone [facility] 1.2.393.794 [id number] Univers 00:00:00 00:00:00 Angela HEALTH 350.1.13.10 ity of [place] 4.2.7.2.686 Kilo as KRZYSZTOF?BLEA [id number] [facility] [address] MEDICAL OFFICE BUILDING 2022-03-18 2022-03-18 Telephone [facility] 1.2.123.873 [id number] Univers 00:00:00 00:00:00 [place] HEALTH 350.1.13.10 ity of [place] 4.2.7.2.686 Kilo as KRZYSZTOF?BLEA [id number] [address] MEDICAL OFFICE BUILDING 2022-03-15 2022-03-15 Telephone Vernell [facility] 1.2.840.114 [id number] Univers 00:00:00 00:00:00 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, Ang - Db [facility] 1.2.840.1 14 [id number] Univers 15:30:00 15:47:42 Visit [facility] 350.1.13.10 ity of [place] 4.2.7.2.686 Kilo as KRZYSZTOF?BLEA [id number] Oh salvatore ESTRADA [address] MEDICAL OFFICE BUILDING 2022-03-11 2022-03-11 Outpatient R OCTAVIO [facility] [id number] Univers 13:40:00 15:35:06 [facility] 2022-03-11 2022-03-11 Office [facility] 1.2.840.114 [id number] Univers 13:40:00 15:35:06 Visit [facility] 350.1.13.10 ity of [place] 4.2.7.2.686 Kilo as KRZYSZTOF?BLEA [id number] Oh salvatore ESTRADA 044 [facility] OFFICE [facility] 2022-03-11 2022-03-11 Office [facility] 1.2.840.114 [id number] Univers 08:00:00 09:15:25 Visit [facility] 350.1.13.10 it y of [place] 4.2.7.2.686 Kilo as KRZYSZTOF?BLEA [id number] Oh salvatore ESTRADA 092 [facility] OFFICE [facility] 2022-03-04 2022-03-04 Outpatient R NIRMALA [facility] [id number] Univers 10:30:00 10:30:00 ARASELI [facility] 2022-02-25 2022-02-25 Urgent Tamela Lucia [facility] 1.2.840.114 [id number] Univers 17:40:00 18:00:00 Care Unknown, [facility] 350.1.13.10 ity of [place] 4.2.7.2.686 Kilo as KRZYSZTOF?BLEA [id number] Oh salvatore ESTRADA [address] MEDICAL OFFICE [facility] 2022-02-25 2022-02-25 Outpatient R REA [facility] [id number] Univers 17:40:00 17:40:00 TAMELA karen [facility] 2022-02-25 2022-02-25 Outpatient R OCTAVIO [facility] [id number] Univers 14:00:00 14:00:00 ANGELA [facility] 2022-02-23 2022-02-23 Orders Doctor LILLIANA 1.2.840.114 [id number] Univers 00:00:00 00:00:00 Only Unassigned, MACKENZIE 350.1.13.10 ity of [place] [facility] 4.2.7.2.686 Kilo as [id number] [address] 2022-01-21 2022-01-21 [facility] [id number] Univers 15:40:00 16:34:00 [facility] 2022-01-21 2022-01-21 Office [facility] 1.2.840.114 [id number] Univers 15:40:00 16:34:00 Visit [facility] 350.1.13.10 ity [facility] 4.2.7.2.686 Kilo as KRZYSZTOF?BLEA [id number] [address] OFFICE [facility] 2021-12-31 2021-12-31 [facility] [id number] Univers 11:20:00 11:20:00 [facility] 2021-12-31 2021-12-31 Orders Doctor LILLIANA 1.2.840.114 [id number] Univers 00:00:00 00:00:00 Only Unassigned, MACKENZIE 350.1.13.10 [facility] 4.2.7.2.686 Kilo as [id number] [address] 2021-12-24 2021-12-24 Outpatient R ODILON [facility] [id number] Univers 14:30:00 15:49:08 CHARY ity [facility] 2021-12-24 2021-12-24 Office [facility] 1.2.840.114 [id number] Univers 14:30:00 15:49:08 Visit Chary A HEALTH 350.1.13.10 i ty of [place] 4.2.7.2.686 Kilo as KRZYSZTOF?BLEA [id number] [address] OFFICE [facility] 2021-12-23 2021-12-23 Abstract [facility] 1.2.840.114 [id number] Univers 00:00:00 00:00:00 [place] HEALTH 350.1.13.10 ity of [place] 4.2.7.2.686 Kilo as KRZYSZTOF?BLEA [id number] Oh salvatore DAWKINS[address] MEDICAL OFFICE [facility] 2021-12-17 2021-12-17 Outpatient R BETO [facility] [id number] Univers 11:00:00 11:00:00 KHANHCHEVY karina o f [facility] 2021-12-17 2021-12-17 [facility] 1.2.840.114 [id number] Univers 00:00:00 00:00:00 [place] HEALTH 350.1.13.10 ity of [place] 4.2.7.2.686 Kilo as KRZYSZTOF?BLEA [id number] [address] MEDICAL OFFICE [facility] 2021-12-10 2021-12-10 Outpatient R OCTAVIO, [facility] [id number] Univers 09:20:00 09:20:00 ANGELA ity [facility] 2021-12-10 2021-12-10 Outpatient R OCTAVIO, [facility] [id number] Univers 09:20:00 09:20:00 [facility] 2021-12-03 2021-12-03 [facility] [id number] Univers 13:40:00 14:38:59 [facility] 2021-12-03 2021-12-03 Office [facility] 1.2.840.114 [id number] Univers 13:40:00 14:38:59 Visit [facility] 350.1.13.10 ity of [place] 4.2.7.2.686 Kilo as KRZYSZTOF?BLEA [phone] Oh salvatore ESTRADA [address] [place] [address] MEDICAL OFFICE [facility] 2021-11-27 2021-11-27 Refshruthi CunninghamLINCOLN [facility] 1.2.840.114 [id number] Univers 00:00:00 00:00:00 Angela HEALTH 350.1.13.10 ity of [place] 4.2.7.2.686 Kilo as KRZYSZTOF?BLEA [id number] Oh salvatore DAWKINS[address] MEDICAL OFFICE BUILDING 2021-11-26 2021-11-26 Outpatient R WON MATT [facility] [id number] Univers 15:40:00 16:24:04 WON MATT karina [facility] 2021-11-26 2021-11-26 Office Vernell [facility] 1.2.840.114 [id number] Univers 15:40:00 16:24:04 Visit Won Serra [facility] 350.1.13.10 ity of [place] 4.2.7.2.686 Kilo as KRZYSZTOF?BLEA [id number] [address] MEDICAL OFFICE BUILDING 2021-11-19 2021-11-19 Outpatient R WON MATT [facility] [id number] Univers 09:57:12 23:59:00 WON MATT karina [facility] 2021-11-19 2021-11-19 Hospital [facility] 1.2.771.336 [id number] Univers 09:57:12 23:59:00 Encounter Won Serra [place] 350.1.13.10 ity of [place] 4.2.7.2.686 [place] [facility] [phone] [facility] [address] 2021-11-18 2021-11-18 Orders Doctor LILLIANA 1.2.840.114 [id number] Univers 00:00:00 00:00:00 Only Unassigned, MACKENZIE 350.1.13.10 ity of [place] [facility] 4.2.7.2.686 Kilo as [phone] [facility] [address] 2021-11-12 2021-11-12 Office MOHAN [facility] 1.2.840.114 [id number] [facility] 14:36:20 15:29:10 Visit , ITALIA AMBULATOR 350.1.13.21 College Y 0.2.7.2.686 of [phone] [facility] 800 e 2021-11-09 2021-11-09 Outpatient Braulio PÉREZ [facility] [id number] Univers 13:00:00 13:00:00 DANIEL collins o f [facility] 2021-11-05 2021-11-05 Outpatient R OCTAVIO [facility] [id number] Univers 10:40:00 10:40:00 ANGELA ity [facility] 2021-11-02 2021-11-02 Outpatient R VERNELL, WON [facility] [id number] Univers 13:00:00 14:14:42 WON MATT karina [facility] 2021-11-02 2021-11-02 Office Vernell [facility] 1.2.840.114 [id number] [facility] 13:00:00 14:14:42 Visit Won [facility] 350.1.13.10 ity of [place] 4.2.7.2.686 Kilo as KRZYSZTOF?BLEA [phone] [address] OFFICE [facility] 2021-11-01 2021-11-01 Office Bang, [facility] 1.2.840.114 [id number] [facility] 09:45:00 10:00:00 Visit Keerthi Dias AMBULATOR 350.1.13.21 College Y 0.2.7.2.686 of [phone] [facility] 300 e 2021-11-01 2021-11-01 Orders Doctor LILLIANA 1.2.840.114 [id number] [employer] 00:00:00 00:00:00 Only Unassigned, MACKENZIE 350.1.13.10 ity of [place] [facility] 4.2.7.2.686 Kilo as [phone] [address] 2021-10-28 2021-10-28 Telephone [facility] [id number] Univers 00:00:00 00:00:00 Angela HEALTH 350.1.13.10 [facility] 4.2.7.2.686 Kilo as KRZYSZTOF?BLEA [phone] [address] OFFICE [facility] 2021-10-26 2021-10-26 [facility]phone [facility] [id number] [employer] 00:00:00 00:00:00 Angela HEALTH 350.1.13.10 [facility]y [facility] 4.2.7.2.686 Kilo as KRZYSZTOF?BLEA [phone] [address] MEDICAL OFFICE [facility] 2021-10-25 2021-10-25 Outpatient R OCTAVIO [facility] [id number] Univers 14:40:00 15:55:58 [facility] 2021-10-25 2021-10-25 Office [facility] 1.2.840.114 [id number] Univers 14:40:00 15:55:58 Visit [facility] 350.1.13.10 ity of [place] 4.2.7.2.686 Kilo as KRZYSZTOF?BLEA [phone] [address] OFFICE [facility] 2021-10-25 2021-10-25 Telephone [facility] [id number] Univers 00:00:00 00:00:00 Angela HEALTH 350.1.13.10 ity of [facility] 4.2.7.2.686 Kilo as KRZYSZTOF?BLEA [phone] [address] 2021-10-25 2021-10-25 Orders Doctor LILLIANA 1.2.840.114 [id number] Univers 00:00:00 00:00:00 Only Unassigned, MACKENZIE 350.1.13.10 ity of [place] [facility] 4.2.7.2.686 Kilo as [phone] [address] 2021-10-20 2021-10-20 Telephone [facility] 1.2.661.174 [id number] Univers 00:00:00 00:00:00 [place] HEALTH 350.1.13.10 ity of [place] 4.2.7.2.686 Kilo as KRZYSZTOF?BLEA [phone] [address] OFFICE [facility] 2021-09-24 2021-09-24 Outpatient Braulio [facility] [id number] Univers 08:40:00 08:40:00 [facility] 2021-09-24 2021-09-24 Outpatient Braulio [facility] [id number] Univers 08:30:00 08:30:00 ANGELA karen [facility] 2021-09-17 2021-09-17 Outpatient WON SALDIVAR [facility] [id number] Univers 11:00:00 11:00:00 VERNELL, WON [facility] 2021-09-13 2021-09-13 [facility] 1.2.214.543 [id number] Univers 00:00:00 00:00:00 Angela HEALTH 350.1.13.10 ity of [facility] 4.2.7.2.686 Kilo as KRZYSZTOF?BLEA [phone] [facility] [address] MEDICAL OFFICE [facility] 2021-09-13 2021-09-13 Orders Doctor LILLIANA 1.2.840.114 [id number] Univers 00:00:00 00:00:00 Only Unassigned, MACKENZIE 350.1.13.10 ity of [place] [facility] 4.2.7.2.686 Kilo as [phone] [address] 2021-09-10 2021-09-10 [facility] [id number] Univers 16:00:00 17:05:49 [facility] 2021-09-10 2021-09-10 [facility] 1.2.840.114 [id number] Univers 16:00:00 17:05:49 Visit [facility] 350.1.13.10 ity of [place] 4.2.7.2.686 Kilo as KRZYSZTOF?BLEA [phone] [address] OFFICE [facility] 2021-09-05 2021-09-05 [facility]phone [facility] 1.2.278.836 [id number] Univers 00:00:00 00:00:00 Chary A HEALTH 350.1.13.10 i ty of [place] 4.2.7.2.686 Kilo as KRZYSZTOF?BLEA [phone] [address] OFFICE [facility] 2021-09-03 2021-09-03 Auto Research Engineer Lab, Ang - Db [facility] 1.2.840.1 14 [id number] Univers 07:45:00 08:09:03 Visit [facility] 350.1.13.10 ity of [place] 4.2.7.2.686 Kilo as KRZYSZTOF?BLEA [phone] [facility] [address] MEDICAL OFFICE [facility] 2021-09-03 2021-09-03 [facility] [id number] Univers 07:45:00 07:45:00 [facility] 2021-09-02 2021-09-02 Telephone [facility] 1.2.747.407 [id number] Univers 00:00:00 00:00:00 [facility] 350.1.13.10 ity of [place] 4.2.7.2.686 Kilo as KRZYSZTOF?BLEA [phone] [address] OFFICE [facility] 2021-08-27 2021-08-27 Auto Research Engineer Lab, Ang - Db [facility] 1.2.840.1 14 [id number] Univers 15:30:00 15:45:00 Visit Octavio [facility] 350.1.13.10 ity of [place] 4.2.7.2.686 Kilo as KRZYSZTOF?BLEA [phone] [facility] [address] [facility] OFFICE [facility] 2021-08-27 2021-08-27 Outpatient R [facility] [id number] Univers 14:00:00 15:19:02 [facility] 2021-08-27 2021-08-27 Office [facility] 1.2.840.114 [id number] Univers 14:00:00 15:19:02 Visit [facility] 350.1.13.10 ity of [place] 4.2.7.2.686 Kilo as KRZYSZTOF?BLEA [phone] [address] OFFICE [facility] 2021-08-20 2021-08-20 Refill [facility] 1.2.840.114 [id number] Univers 00:00:00 00:00:00 Chary A HEALTH 350.1.13.10 i ty of [place] 4.2.7.2.686 Kilo as KRZYSZTOF?BLEA [phone] [address] OFFICE [facility] 2021-07-09 2021-07-09 [facility] [id number] Univers 16:00:00 17:29:20 CHARY [facility] 2021-07-09 2021-07-09 Office [facility] 1.2.840.114 [id number] Univers 16:00:00 17:29:20 Visit Chary A HEALTH 350.1.13.10 i ty of [place] 4.2.7.2.686 Kilo as KRZYSZTOF?BLEA [phone] Oh salvatore ESTRADA [address] MEDICAL OFFICE [facility] 2021-07-09 2021-07-09 Outpatient R ODILON [facility] [id number] Univers 16:00:00 17:29:20 CHARY collins [facility] 2021-06-09 2021-06-09 Case [facility] 1.2.840.114 [id number] Univers 00:00:00 00:00:00 Management Rania HEALTH 350.1.13.10 ity of [facility] 4.2.7.2.686 Kilo as KRZYSZTOF?BLEA [phone] [facility] [address] [facility] OFFICE [facility] 2021-06-09 2021-06-09 Tapan Mccartney [facility] 1..840.114 [id number] Univers 00:00:00 00:00:00 (Out) Ree HEALTH 350.1.13.10 it y of [facility] 4.2.7.2.686 Kilo as KRZYSZTOF?BLEA [phone] [facility] [address] [facility] OFFICE [facility] 2021-06-08 2021-06-08 Laboratory Only, Ang Db Test [facility] 1.2.8 40.114 [id number] Univers 09:15:00 09:30:00 Only Tera Ricks [facility] 350.1.13.10 ity of [place] 4.2.7.2.686 Kilo as KRZYSZTOF?BLEA [phone] [facility] [address] MEDICAL OFFICE [facility] 2021-06-08 2021-06-08 Outpatient R ANDREW [facility] [id number] Univers 09:15:00 09:15:00 TERA collins [facility] 2021-05-17 2021-05-17 Outpatient R JOEL [facility] [id number] Univers 13:30:00 13:30:00 karina NAYAK [facility] 2021-05-13 2021-05-13 Orders Doctor TIJERINA 1.2.840.114 [id number] [facility] 00:00:00 00:00:00 Only Unassigned, MACKENZIE 350.1.13.10 ity of [place] [facility] 4.2.7.2.686 Kilo as [phone] [facility] [address] 2021-05-03 2021-05-03 Office LINK, [facility] 1.2.840.114 [id number] [facility] 10:12:54 11:16:44 Visit KEERTHI AMBULATOR 350.1.13.21 College Y 0.2.7.2.686 of [id number] [facility] 300 e 2021-05-03 2021-05-03 Outpatient BCM [facility] [id number] [facility] 00:00:00 00:00:00 Colleg e of Medicin e 2021-05-03 2021-05-03 Outpatient BCM BC [id number] [facility] 00:00:00 00:00:00 Colleg e [facility] Medicin e 2021-05-03 2021-05-03 Telephone Lyla [facility] 1.2.830.487 [id number] Univers 00:00:00 00:00:00 Amaya HEALTH 350.1.13.10 it y of [place] 4.2.7.2.686 Kilo as KRZYSZTOF?BLEA [id number] [address] MEDICAL OFFICE [facility] 2021-04-30 2021-04-30 Telephone Randal [facility] 1.2.003.708 [id number] Univers 00:00:00 00:00:00 Gerardo HEALTH 350.1.13.10 it y of [place] 4.2.7.2.686 Kilo as KRZYSZTOF?BLEA [phone] [address] MEDICAL OFFICE [facility] 2021-04-29 2021-04-29 Nurse LILLIANA Jain 1.2.840.114 [id number] [facility] 00:00:00 00:00:00 Triage Pamela Roman MACKENZIE 350.1.13.10 it y of [facility] 4.2.7.2.686 Kilo as [phone] [facility] [address] 2021-04-29 2021-04-29 Refshruthi Hobson [facility] 1.2.840.114 [id number] Univers 00:00:00 00:00:00 Wondiful A TRENA 350.1.13.10 ity of [place].2.7.2.[place] [phone] Oh salvatore PANTOJA [address] [place] [address] 2021-04-23 2021-04-23 Outpatient R BETO [facility] [id number] Univers 09:00:00 09:00:00 QIANGJUN ity o f [facility] 2021-04-14 2021-04-14 Outpatient R JOCE [facility] [id number] Univers 09:30:00 09:30:00 WONDIFUL ity o f [facility] 2021-04-14 2021-04-14 [facility] [id number] Univers 09:30:00 09:30:00 WONDIFUL ity o [facility] 2021-04-05 2021-04-05 Outpatient [facility] [id number] Univers 10:30:00 10:30:00 JESSICA ity of [facility] 2021-04-05 2021-04-05 Orders Doctor LILLIANA 1.2.840.114 [id number] Univers 00:00:00 00:00:00 Only Unassigned, MACKENZIE 350.1.13.10 [facility] 4.2.7.2.686 Kilo as [phone] [address] 2021-03-22 2021-03-22 [facility] [id number] Univers 11:30:00 12:40:29 AMAYA ity of [facility] 2021-03-22 2021-03-22 Office [facility] 1.2.840.114 [id number] Univers 11:30:00 12:40:29 [facility] 350.1.13.10 it y of [place] 4.2.7.2.686 Kilo as KRZYSZTOF?BLEA [phone] Oh adolphcleopatra MARIZAANDREA [address] [place] [address] MEDICAL OFFICE [facility] 2021-03-21 2021-03-21 Refshruthi [facility] 1.2.840.114 [id number] Univers 00:00:00 00:00:00 Wondiful A HEALTH 350.1.13.10 ity of [place] 4.2.7.2.686 Kilo as PROFESSIO [phone] [address] OFFICE [facility] ONE 2021-02-22 2021-02-22 Office Jeaneth, [facility] 1.2.840.114 [id number] Univers 14:30:00 15:00:00 Visit Jessica R Y HEALTH 350.1.13.10 ity of [place] [phone] [address] 2021-02-22 2021-02-22 Outpatient R DON, [facility] [id number] Univers 14:30:00 14:30:00 JESSICA ity [facility] 2021-02-22 2021-02-22 Outpatient R DON, [facility] [id number] Univers 14:30:00 14:30:00 JESSICA ity [facility] 2021-01-25 2021-01-25 [facility]uthi [facility] 1.2.840.114 [id number] Univers 00:00:00 00:00:00 Wondiful A HEALTH 350.1.13.10 ity of [place] 4.2.7.2.686 Kilo as PROFESSIO [phone] [address] OFFICE [facility] ONE 2021-01-21 2021-01-21 [facility] 1.2.840.114 [id number] Univers 00:00:00 00:00:00 Management Wondiful A HEALTH 350.1.13.10 ity of [place] 4.2.7.2.686 Kilo as KRZYSZTOF?BLEA [phone] [address] OFFICE BUILDING 2021-01-21 2021-01-21 [facility] 1.2.840.114 [id number] Univers 00:00:00 00:00:00 Management Wondiful A HEALTH 350.1.13.10 ity of [place] 4.2.7.2.686 Kilo as KRZYSZTOF?BLEA [phone] [address] OFFICE BUILDING 2021-01-20 2021-01-20 Outpatient R TERESITA [facility] [id number] Univers 09:25:28 23:59:00 SENDIL ity of [facility] 2021-01-20 2021-01-20 Hospital Austin Hobson [facility] 1.2.8 40.114 [id number] Univers 09:00:00 23:59:00 Encounter Ceci Lo [place] 350.1.1 3.10 ity of [place].7.2.[place] [phone] [address] 2021-01-15 2021-01-15 [facility] [id number] Univers 10:10:00 10:10:00 WONDIFUL ity o f [facility] 2021-01-15 2021-01-15 Imm/Inj Vaccine, Ang Db Cbc [facility] 1. 2.840.114 [id number] Univers 08:47:34 08:57:34 Visit Austin Hobson HEALTH 350.1.13.1 0 ity of [place] 4.2.7.2.686 Kilo as KRZYSZTOF?BLEA [phone] [facility] [address] MEDICAL OFFICE [facility] 2021-01-15 2021-01-15 Auto Research Engineer Lab, Ang - Db [facility] 1.2.840.1 14 [id number] Univers 08:20:53 08:35:53 Visit Austin Hobson HEALTH 350.1.13.1 0 ity of [place] 4.2.7.2.686 Kilo as KRZYSZTOF?BLEA [phone] Oh salvatore ESTRADA [address] MEDICAL OFFICE BUILDING 2021-01-14 2021-01-14 Office Joce [facility] 1.2.840.114 [id number] Univers 13:02:10 13:52:29 Visit Austin Goyal HEALTH 350.1.13.10 ity of [place] 4.2.7.2.686 Kilo as KRZYSZTOF?BLEA [phone] Oh salvatore ESTRADA [address] MEDICAL OFFICE [facility] 2021-01-14 2021-01-14 [facility] [id number] Univers 13:00:00 13:52:29 WONDIFUL ity o f [facility] 2020-12-23 2021-01-10 Office BANG, [facility] 1.2.840.114 [id number] [facility] 15:05:24 13:24:06 Visit KEERTHI AMBULATOR 350.1.13.21 College Y 0.2.7.2.686 of [phone] [facility] 300 e 2020-12-04 2020-12-04 [facility] 1.2.886.817 [id number] Univers 12:31:25 23:59:00 Encounter Wondiful A [place] 350.1.13.10 ity of [place].2.[place] [phone] [place] [address] [address] 2020-12-04 2020-12-04 [facility] [id number] [facility] 10:15:00 12:44:29 WONDIFUL ity o f [facility] 2020-12-04 2020-12-04 Office [facility] 1.2.840.114 [id number] [facility] 10:12:12 12:44:29 Visit Wondiful A HEALTH 350.1.13.10 ity of [place] 4.2.7.2.686 Kilo as KRZYSZTOF?BLEA [phone] [address] MEDICAL OFFICE [facility] 2020-10-16 2020-10-16 Patient [facility] 1.2.840.114 [id number] Univers 00:00:00 00:00:00 Secure Msg Wondiful A Health 350.1.13.10 ity of [place] 4.2.7.2.686 Kilo as Krzysztof?Blea [id number] [address] Medical Office Building 2020-10-13 2020-10-13 Telephone [facility] 1.2.840.114 [id number] Univers 00:00:00 00:00:00 Wondiful A Health 350.1.13.10 ity of [place] 4.2.7.2.686 Kilo as Krzysztof?Blea [phone] [address] Medical Office Building 2020-10-08 2020-10-08 Patient Doctor LILLIANA 1.2.840.114 [id number] Univers 00:00:00 00:00:00 Secure Msg Unassigned, MACKENZIE 350.1.13.10 ity of [place] [facility] 4.2.7.2.686 Kilo as [id number] [address] 2020-10-08 2020-10-08 Refill [facility] 1.2.840.114 [id number] Univers 00:00:00 00:00:00 Wondiful A Health 350.1.13.10 ity of [place] 4.2.7.2.686 Kilo as Krzysztof?Blea [phone] [address] Medical Office Building 2020-10-08 2020-10-08 Telephone [facility] 1.2.840.114 [id number] Univers 00:00:00 00:00:00 Wondiful A Health 350.1.13.10 ity of [place] 4.2.7.2.686 Kilo as Krzysztof?Blea [phone] [address] Medical Office Building 2020-10-06 2020-10-06 Outpatient R JOCE [facility] [id number] Univers 09:00:00 09:00:00 WONDIFUL ity o f [facility] 2020-10-05 2020-10-05 Office [facility] 1.2.840.114 [id number] Univers 11:08:16 12:09:41 Visit Wondiful A Health 350.1.13.10 ity of [place] 4.2.7.2.686 Kilo as Krzysztof?Blea [phone] [address] Medical Office Building 2020-10-05 2020-10-05 Outpatient R JOCE [facility] [id number] Univers 11:15:00 11:15:00 WONDIFUL ity o f [facility] 2020-09-15 2020-09-15 Outpatient R JOCE [facility] [id number] Univers 14:30:00 14:30:00 WONDIFUL ity o f [facility] 2020-08-06 2020-08-06 Outpatient R BETO [facility] [id number] Univers 00:00:00 00:00:00 DANIEL collins o f [facility] 2020-07-20 2020-07-20 Auto Research Engineer Lab, Adc Fam Pob I [facility] 1.2. 840.114 [id number] Univers 10:43:24 11:03:24 Visit Beto [facility] 350.1.13.10 ity of [place] 4.2.7.2.686 Kilo as Professio [phone] [address] Office [facility] One 2020-07-20 2020-07-20 Office [facility] 1.2.840.114 [id number] Univers 09:55:53 10:27:33 Visit Daniel [place] 350.1.13.10 ity of [place]2.7.2.[place] Profess[place] [phone] [address] 2020-07-20 2020-07-20 Outpatient [facility] [id number] Univers 10:00:00 10:00:00 DANIEL collins o paula [facility] 2020-06-02 2020-06-02 Telephone [facility] 1..840.114 [id number] Univers 00:00:00 00:00:00 Wondiful A Health 350.1.13.10 ity of [place] 4.2.7.2.686 Kilo as Professio [phone] [address] 2020-06-01 2020-06-01 Refill [facility] 1.2.840.114 [id number] Univers 00:00:00 00:00:00 Daniel [place] 350.1.13.10 ity of [place].2.[place] Profess[place] [phone] [place] 889049 [facility] 2020-05-18 2020-05-18 Orders Doctor LILLIANA 1.2.840.114 [id number] Univers 00:00:00 00:00:00 Only Unassigned, MACKENZIE 350.1.13.10 ity of [place] [facility] 4.2.7.2.686 Kilo as [phone] [address] 2020-05-04 2020-05-04 Office LINK, [place] 1.2.840.114 [id number] [facility] 10:43:07 12:09:48 Visit KEERTHI AMBULATOR 350.1.13.21 College Y 0.2.7.2.686 of [phone] [facility] 300 e 2020-04-29 2020-04-29 Telephone [facility], [facility] 1.2.789.236 [id number] 00:00:00 00:00:00 Qiaverónicachevy [place] 350.1.13.10 [place] 4.2.7.2.686 Professio [phone] [address] 2020-04-29 2020-04-29 Refill [facility], [facility] 1.2.840.114 [id number] 00:00:00 00:00:00 Qiaverónicachevy [place] 350.1.13.10 [place] 4.2.7.2.686 Professio [id number] [address] 2020-04-29 2020-04-29 Telephone [facility], [facility] 1.2.108.182 [id number] Univers 00:00:00 00:00:00 Qiangjun [place] 350.1.13.10 ity of [place] Profess[place] [phone] [address] 2020-04-29 2020-04-29 Refill Beto, [facility] 1.2.840.114 [id number] [facility] 00:00:00 00:00:00 Qiaverónicajun [place] 350.1.13.10 ity of [place].2.[place] Professio [phone] Oh dic[address] 2020-04-25 2020-04-25 Urgent Provider, [facility] 1.2.555.663 [id number] 10:12:47 10:32:47 Care [facility] 350.1.13.10 Care [place] 4.2.7.2.686 Professio [phone] nal [address] Office [address] One 2020-04-25 2020-04-25 Urgent Provider, Ang [facility] 1.2.840.114 [id number] Univers 10:12:47 10:32:47 Care Mine [facility] 350.1.13.10 ity of [place] 4.2.7.2.686 Kilo as Professio [phone] [address] Office Building One 2020-04-25 2020-04-25 Outpatient R ONEAL [facility] [id number] Univers 10:20:00 10:20:00 MINE ity o f [facility] 2020-04-15 2020-04-15 Telephone [facility] 1.2.840.114 [id number] 00:00:00 00:00:00 Wondiful A Health 350.1.13.10 [place] 4.2.7.2.686 Professio [phone] [place] [address] Office Building One 2020-04-15 2020-04-15 Telephone [facility] 1.2.840.114 [id number] Univers 00:00:00 00:00:00 Wondiful A Health 350.1.13.10 ity of [place] 4.2.7.2.686 Kilo as Professio [phone] [address] Office Building One 2020-03-07 2020-03-07 Patient Tyler [facility] 1.2.840.114 [id number] 00:00:00 00:00:00 Outreach Ethan PRIMARY 350.1.13.10 Herbie CARE 4.2.7.2.686 PAVILLION [phone] [facility] 2020-03-07 2020-03-07 Patient [facility] 1.2.840.114 [id number] Univers 00:00:00 00:00:00 Outreach Ethan PRIMARY 350.1.13.10 i ty of [place] C[place]2.[place].2.[place]AV[place] [phone] Oh adolphsc [address] 2020-01-16 2020-01-16 [facility] [id number] Univers 16:30:00 16:30:00 WONDIFUL ity o f [facility] 2020-01-16 2020-01-16 Telemedici [facility] 1.2.840.114 [id number] 16:09:25 16:24:25 ne Visit Wondiful A Health 350.1.13.10 [place] 4.2.7.2.686 Professio [phone] nal [facility] Office Building One 2020-01-16 2020-01-16 Telemedici [facility] 1.2.840.114 [id number] [facility] 16:09:25 16:24:25 ne Visit Wondiful A Health 350.1.13.10 ity of [place] 4.2.7.2.686 Kilo as Professio [phone] Oh dical [facility] [address] Office Building One 2020-01-12 2020-01-12 Orders Doctor LILLIANA 1.2.840.114 [id number] 00:00:00 00:00:00 Only Unassigned, MACKENZIE 350.1.13.10 [place] [facility] [phone] [facility] 2020-01-12 2020-01-12 Orders Doctor LILLIANA 1.2.840.114 [id number] Univers 00:00:00 00:00:00 Only Unassigned, MACKENZIE 350.1.13.10 ity of [place] [facility] 4.2.7.2.686 Kilo as [phone] [address] 2020-01-06 2020-01-06 Office Link, [facility] 1.2.840.114 [id number] 10:46:16 11:44:31 Visit Keerthi Larissa AMBULATOR 350.1.13.21 Y [phone] [facility] 2020-01-06 2020-01-06 Office Link, [facility] 1.2.840.114 [id number] 56 [facility] 10:46:16 11:44:31 Visit Keerthi Larissa AMBULATOR 350.1.13.21 College Y 0.2.7.2.686 of [phone] [facility] 300 e 2019-12-16 2019-12-16 Case [facility] 1.2.840.114 [id number] 00:00:00 00:00:00 Management [facility] 350.1.13.10 [place] 4.2.7.2.686 Professio [phone] [place] [address] Office Building One 2019-12-16 2019-12-16 Case Joce [facility] 1.2.840.114 [id number] Univers 00:00:00 00:00:00 Management [facility] 350.1.13.10 ity of [place] 4.2.7.2.686 [place] as Professio [phone] [address] Office Building One 2019-12-12 2019-12-12 Auto Research Engineer 1, Adc Lab [facility] 1.2.840.114 [id number] 09:36:54 09:51:54 Visit [place] 350.1.13.10 [place] 4.2.7.2.686 [place] [phone] [facility] 2019-12-12 2019-12-12 Auto Research Engineer 1, Adc Lab [facility] 1.2.840.114 [id number] [facility] 09:36:54 09:51:54 Visit Joce Antwanrayna A [place] 350.1.13. 10 ity [place] 4.2.7.2.686 [place] [facility] [phone] [address] 2019-12-12 2019-12-12 Outpatient R [facility] [id number] Univers 08:30:00 08:30:00 ity of [facility] 2019-12-12 2019-12-12 Telephone Joce [facility] 1.2.840.114 [id number] 00:00:00 00:00:00 [facility] 350.1.13.10 [place] 4.2.7.2.686 Professio [phone] [place] [address] Office Building One 2019-12-12 2019-12-12 [facility] 1.2.840.114 [id number] Univers 00:00:00 00:00:00 W[facility] 350.1.13.10 ity of [place] 4.2.7.2.686 [place] Professio [phone] [address] Office [facility] 2019-12-05 2019-12-05 Orders Doctor LILLIANA 1.2.840.114 [id number] 00:00:00 00:00:00 Only Unassigned, MACKENZIE 350.1.13.10 [facility] 4.2.7.2.686 [id number] 2019-12-05 2019-12-05 Orders Doctor LILLIANA 1.2.840.114 [id number] Univers 00:00:00 00:00:00 Only Unassigned, MACKENZIE 350.1.13.10 ity of [facility] 4.2.7.2.686 [place] as [phone] [address] 2019-11-14 2019-11-14 Case Joce [facility] 1.2.840.114 [id number] 00:00:00 00:00:00 Management [facility] 350.1.13.10 [place] 4.2.7.2.686 Professio [phone] [place] [address] Office [facility] 2019-11-14 2019-11-14 Beto Hobson [facility] 1.2.840.114 [id number] Univers 00:00:00 00:00:00 Management [facility] 350.1.13.10 ity of [place] 4.2.7.2.686 [place] Professio [phone] [address] Office Building [facility] 2019-11-13 2019-11-13 Beto Hobson [facility] 1.2.840.114 [id number] 00:00:00 00:00:00 Management [facility] 350.1.13.10 [place] 4.2.7.2.686 Professio [phone] [place] [address] Office Building [facility] 2019-11-13 2019-11-13 eBto Hobson [facility] 1.2.840.114 [id number] Univers 00:00:00 00:00:00 Management [facility] 350.1.13.10 ity of [place] 4.2.7.2.686 [place] Professio [phone] [address] Office Building [facility] 2019-11-08 2019-11-08 Auto Research Engineer Lab, Adc Fam Pob I [facility] 1.2. 840.114 [id number] Univers 11:16:17 11:26:17 Visit [facility] 350.1.13.1 0 ity of [place] 4.2.7.2.686 Kilo as Professio [phone] [address] Office [facility] 2019-11-08 2019-11-08 Office Joce [facility] 1.2.840.114 [id number] 09:44:58 11:00:23 Visit [facility] 350.1.13.10 [place] 4.2.7.2.686 Professio [phone] [address] 2019-11-08 2019-11-08 [facility] 1.2.840.114 [id number] Univers 09:44:58 11:00:23 Visit [facility] 350.1.13.10 ity of [place] 4.2.7.2.686 Kilo as Professio [phone] [address] 2019-11-08 2019-11-08 Outpatient R JOCE [facility] [id number] Univers 08:45:00 08:45:00 WONDIFUL ity o f [facility] 2019-09-02 2019-11-04 [facility]ici [facility] 1.2.840.114 [id number] Univers 09:09:51 09:25:19 ne Visit Wondiful A [place] 350.1.13.10 ity [place] [phone] [address] 2019-11-04 2019-11-04 Auto Research Engineer Lab, Adc Fam Pob I [facility] 1.2. 840.114 [id number] Univers 09:02:55 09:12:55 Visit [facility] 350.1.13.1 0 ity of [place] 4.2.7.2.686 [place]ilo as Professio [phone] [address] 2019-11-04 2019-11-04 Outpatient R JOCE [facility] [id number] Univers 09:00:00 09:00:00 WONDIFUL ity o f [facility] 2019-10-30 2019-10-30 [facility]ill [facility] 1.2.840.114 [id number] Univers 00:00:00 00:00:00 [facility] 350.1.13.10 ity of [place] 4.2.7.2.686 [place] as Professio [phone] Oh dical nal 044 [place] Office [facility] 2019-10-25 2019-10-25 Refshruthi Hobson [facility] 1.2.840.114 [id number] Univers 00:00:00 00:00:00 [facility] 350.1.13.10 ity of [place] 4.2.7.2.686 [place] as Professio [phone] Oh dical nal 044 [place] Office [facility] 2019-10-25 2019-10-25 [facility] 1.2.840.114 [id number] Univers 00:00:00 00:00:00 [facility] 350.1.13.10 ity of [place] 4.2.7.2.686 [place] as Professio [phone] Oh dical nal 044 [facility] 2019-10-07 2019-10-07 Office Bang, [facility] 1.2.840.114 [id number] 08:45:50 10:08:26 Visit Keerthi Disa AMBULATOR 350.1.13.21 Y 0.2.7.2.686 [phone] 300 2019-10-07 2019-10-07 Office Bang [facility] 1.2.840.[id number] [place] [address] 08:45:50 10:08:26 Visit Keerthi Dias AMBULATOR 350.1.13.21 College Y 0.2.7.2.686 of [phone] [facility] 300 e 2019-10-07 2019-10-07 Orders Doctor LILLIANA 1.2.840.114 [id number] Univers 00:00:00 00:00:00 Only Unassigned, MACKENZIE 350.1.13.10 ity of [place] [facility] 4.2.7.2.686 Kilo as [phone] [facility] 009 [place] 2019-09-30 2019-09-30 Office Beto, [facility] 1.2.840.114 [id number] Univers 09:15:37 09:55:50 Visit Daniel Trena 350.1.13.10 ity [place] [phone] Oh dical nal 059 [facility] 2019-09-30 2019-09-30 Outpatient R BETO, [facility] [id number] Univers 09:40:00 09:40:00 DANIEL ity o f [facility] 2019-09-02 2019-09-02 Outpatient R JOCE, [facility] [id number] Univers 08:45:00 08:45:00 WONMEMEJOANA ity o f [facility] 2019-08-30 2019-08-30 Telephone LILLIANA Donald 1..[id number] [id number] Univers 00:00:00 00:00:00 Chary Jyotsna MACKENZIE 350.1.13.10 i ty of [facility] 4.2.7.2.686 Kilo as [phone] [address] 2019-08-29 2019-08-29 Laboratory Lab, [facility] Fam Pob I [facility] 1.2. 840.114 [id number] Univers 11:32:55 11:52:55 Only Lyla, [facility] 350.1.13.10 ity of [place] 4.2.7.2.686 [place] as Professio [phone] Oh dical nal 044 [place] Office [facility] 2019-08-29 2019-08-29 Outpatient R LYLA, [facility] [id number] Univers 11:40:00 11:40:00 AMAYA collins [facility] 2019-08-29 2019-08-29 Urgent Lab, [facility] 1.2.840.114 [id number] 11:00:00 11:20:00 Care Fam Pob I Health 350.1.13.10 [place] 4.2.7.2.686 Professio [phone] nal [address] [place] [address] 2019-08-29 2019-08-29 Urgent Lab, [facility] Fam Pob I [facility] 1.2.840 .114 [id number] Univers 11:00:00 11:20:00 Care [facility] 350.1.13.10 ity of [place] 4.2.7.2.686 [place] as Professio [phone] Oh dical nal 044 [place] Office [facility] 2019-08-29 2019-08-29 Outpatient R [facility] [id number] Univers 11:00:00 11:00:00 ity of [facility] 2019-08-29 2019-08-29 Letter Doctor LILLIANA 1.2.840.114 [id number] Univers 00:00:00 00:00:00 (Out) Unassigned, MACKENZIE 350.1.13.10 ity of [facility] 4.2.7.2.686 Kilo as [phone] [address] 2019-08-20 2019-08-20 Refill [facility] 1.2.840.114 [id number] Univers 00:00:00 00:00:00 [facility] 350.1.13.10 ity of [place] 4.2.7.2.686 [place]ilo as Professio [phone] [address] Office [facility] 2019-07-30 2019-07-30 Office Kedar [facility] Encounter / Legacy 00:00:00 00:00:00 Visit Renata [id number] Com natalee [id number] [facility] 2019-07-11 2019-07-11 [facility] [id number] Univers 09:15:00 09:15:00 WONDIFUL ity o f [facility] 2019-07-03 2019-07-03 Telephone [facility] 1.2.840.114 [id number] Univers 00:00:00 00:00:00 Wondiful A [place] 350.1.13.10 it[place] [phone] [address] 2019-07-01 2019-07-01 Office Wilfredo [facility] Encounter/ Legacy 00:00:00 00:00:00 Visit Mirella [id number] Com natalee De La Cruz 862324 [facility] 2019-07-01 2019-07-01 Office Wilfredo [facility] Encounter/ Legacy 00:00:00 00:00:00 Visit Mirella [id number] Com natalee De La Cruz 037525 [facility] 2019-07-01 2019-07-01 Office Mirella Villalobos [facility] Encounter/ Legacy 00:00:00 00:00:00 Visit Shy Miller [id number] [address] [place] [address] 504278 Health 2019-07-01 2019-07-01 [facility] 1..840.114 [id number] Univers 00:00:00 00:00:00 [facility] 350.1.13.10 ity of [place] 4.2.7.2.686 [place] as Professio [phone] [address] Office [facility] 2019-06-25 2019-06-25 Office Wilfredo, [facility] Encounter/ Legacy 00:00:00 00:00:00 Visit Mirella [id number] [facility] natalee De La Cruz [id number] [facility] 2019-06-25 2019-06-25 Office Wilfredo, [facility] Encounter/ Legacy 00:00:00 00:00:00 Visit Mirella [id number] [facility] natalee Jono 313101 [facility] 2019-06-25 2019-06-25 Office Wilfredo, [facility] Encounter/ Legacy 00:00:00 00:00:00 Visit Mirella [id number] [facility] natalee De La Cruz 141451 [facility] 2019-06-25 2019-06-25 Office Wilfredo, Mirella De La Cruz [facility] Encounter/ Legacy 00:00:00 00:00:00 Visit Renata Thacker [id number] [address] [place] [address] 817292 [facility] 2019-05-14 2019-05-14 [facility] 1.2.840.114 [id number] Univers 00:00:00 00:00:00 [facility] 350.1.13.10 ity of [place] 4.2.7.2.686 [place] as Professio [phone] [address] 2019-04-05 2019-04-05 Outpatient R JOCE [facility] [id number] Univers 13:15:00 14:32:32 WONDIFUL ity o f [facility] 2019-04-05 2019-04-05 [facility] 1.2.840.114 [id number] Univers 13:11:19 14:32:32 Visit [facility] 350.1.13.10 ity of [place] 4.2.7.2.686 [place] as Professio [phone] [address] [facility] 2019-04-04 2019-04-04 Telephone [facility] 1.2.538.891 [id number] Univers 00:00:00 00:00:00 Daniel Albrecht 350.1.13.10 it[place] [phone] [facility] 059 [facility] 2019-04-01 2019-04-01 Auto Research Engineer 2, Adc Lab [facility] 1.2.840.114 [id number] Univers 11:11:10 11:26:10 Visit Daniel Pérez 350.1.13.10 it[place].2.[place] [phone] [facility] 353 [facility] 2019-04-01 2019-04-01 [facility] [id number] Univers 11:15:00 11:15:00 DANIEL mitchell [facility] 2019-04-01 2019-04-01 Office [facility] 1.2.840.114 [id number] Univers 09:49:17 11:01:30 Visit Daniel Albrecht 350.1.13.10 it[place].2.[place] [phone] [place] 889049 [facility] 2019-04-01 2019-04-01 Orders Doctor LILLIANA 1.2.840.114 [id number] Univers 00:00:00 00:00:00 Only Unassigned, MACKENZIE 350.1.13.10 ity of [place] [facility] 4.2.7.2.686 Kilo as [phone] [address] 2018-08-03 2018-08-03 Outpatient R JOCE [facility] [id number] Univers 12:45:00 12:45:00 WONDIJOANA collins o [facility] Results Test Description Test Time Test Comments Results Result Comments Source N-TERMINAL PRO-BNP 2022-06-11 15:02:10 Test Item Value Reference Range Interpretation Comme nts NT-proBNP (test code = 3657540180) 782 pg/mL <=450 H ALEXIS (test code = ALEXIS) Biotin has been reported to cause a negative bias, interpret results relative to patient's use of biotin. Lab Interpretation (test code = 21158-7) Abnormal [facility] METABOLIC PANEL (NA, K, CL, CO2, GLUCOSE, BUN, CREATININE, CA)2022-06-11 14:53:52 Test Item Value Reference Range Interpretation Comments NA (test code = 139 mmol/L 135-145 7287654771) K (test code = 4.5 mmol/L 3.5-5.0 4693719466) CL (test code = 103 mmol/L 98-108 5213783332) CO2 TOTAL (test code = 30 mmol/L 23-31 1525355526) AGAP (test code = 6 2-16 2524854907) BUN (test code = 17 mg/dL 7-23 2229649193) GLUCOSE (test code = 134 mg/dL 70-110 H 0342186562) CREATININE (test code = 0.57 mg/dL 0.50-1.04 0374514106) CALCIUM (test code = 9.0 mg/dL 8.6-10.6 5864143284) eGFR (test code = 100.6 mL/min/1.73m2 1701292189) ALEXIS (test code = ALEXIS) Association of [...] tests). Lab Interpretation Abnormal (test code = 39690-1) [facility] [id number] 11:00:26 Test Item Value Reference Range Interpretation Comments POC-GLUCOSE METER 139 mg/dL 70-110 H : TESTED A T [facility] 6720 (BEAKER) (test code = [facility], 1538) 53945: Rate Examiner/Techni socrates ID = [id number] for Co ok, Sridevi POCT-GLUCOSE [id number] 08:28:34 Test Item Value Reference Range Interpretation Comments POC-GLUCOSE METER 147 mg/dL 70-110 H : TESTED A T [facility] 6720 (BEAKER) (test code = [facility] [employer] [facility], 1538) 35530: Rate Examiner/Techni socrates ID = [id number] for [place], Sridevi BASIC METABOLIC [id number] 05:30:33 Test Item Value Reference Range Interpretation Comments SODIUM (BEAKER) 138 meq/L 136-145 (test code = 381) POTASSIUM 3.7 meq/L 3.5-5.1 (BEAKER) (test code = 379) CHLORIDE (BEAKER) 100 meq/L 98-107 (test code = 382) CO2 (BEAKER) 27 meq/L 22-29 (test code = 355) BLOOD UREA 17 mg/dL 7-21 NITROGEN (BEAKER) (test code = 354) CREATININE 0.68 mg/dL 0.57-1.25 (BEAKER) (test code = 358) GLUCOSE RANDOM 122 mg/dL 70-105 H (BEAKER) (test code = 652) CALCIUM (BEAKER) 8.8 mg/dL 8.4-10.2 (test code = 697) EGFR (BEAKER) 85 Interpretatio n of eGFR (test code = mL/min/1.73 values Stage De scription 1092) sq m Result G1 Isabel l or high >=90 G2 Mildly decreased 60-89 G3a Mildl y to moderately 45-5 9 G3b Moderately to s everely 30-44 G4 Severl y decreased 15-29 G5 Kidney failure <15Reported eGF R is based on the CKD-EPI 2020 equation that d oes not use a race coefficientEsti mated GFR is not as accur ate as Creatinine Dominique cassandra in predicting glom erular filtration rate . Estimated GFR is not appl icable for dialysis patien ts Rate Examiner ID - TERRELL [id number] 05:30:33 Test Item Value Reference Range Interpretation Comments MAGNESIUM (BEAKER) (test code = 2.1 mg/dL 1.6-2.6 627) Rate Examiner ID - TERRELL GCBC W/PLT COUNT & AUTO [id number] 05:08:16 Test Item Value Reference Range Interpretation Comments WHITE BLOOD CELL COUNT (BEAKER) 9.7 K/ L 3.5-10.5 (test code = 775) RED BLOOD CELL COUNT (BEAKER) 4.19 M/ L 3.93-5.22 (test code = 761) HEMOGLOBIN (BEAKER) (test code = 9.6 GM/DL 11.2-15.7 L 410) HEMATOCRIT (BEAKER) (test code = 31.0 % 34.1-44.9 L 411) MEAN CORPUSCULAR VOLUME (BEAKER) 74 fL 79-95 L (test code = 753) MEAN CORPUSCULAR HEMOGLOBIN 22.9 pg 25.6-32.2 L (BEAKER) (test code = 751) MEAN CORPUSCULAR HEMOGLOBIN CONC 31.0 GM/DL 32.2-35.5 L (BEAKER) (test code = 752) RED CELL DISTRIBUTION WIDTH 15.4 % 11.7-14.4 H (BEAKER) (test code = 412) PLATELET COUNT (BEAKER) (test 351 K/CU MM 150-450 code = 756) MEAN PLATELET VOLUME (BEAKER) 10.0 fL 9.4-12.3 (test code = 754) NUCLEATED RED BLOOD CELLS 0 /100 WBC 0-0 (BEAKER) (test code = 413) NEUTROPHILS RELATIVE PERCENT 64 % (BEAKER) (test code = 429) LYMPHOCYTES RELATIVE PERCENT 24 % (BEAKER) (test code = 430) MONOCYTES RELATIVE PERCENT 8 % (BEAKER) (test code = 431) EOSINOPHILS RELATIVE PERCENT 4 % (BEAKER) (test code = 432) BASOPHILS RELATIVE PERCENT 0 % (BEAKER) (test code = 437) NEUTROPHILS ABSOLUTE COUNT 6.20 K/ L 1.56-6.13 H (BEAKER) (test code = 670) LYMPHOCYTES ABSOLUTE COUNT 2.37 K/ L 1.18-3.74 (BEAKER) (test code = 414) MONOCYTES ABSOLUTE COUNT (BEAKER) 0.73 K/ L 0.24-0.36 H (test code = 415) EOSINOPHILS ABSOLUTE COUNT 0.37 K/ L 0.04-0.36 H (BEAKER) (test code = 416) BASOPHILS ABSOLUTE COUNT (BEAKER) 0.02 K/ L 0.01-0.08 (test code = 417) IMMATURE GRANULOCYTES-RELATIVE 0.20 % 0.00-1.00 PERCENT (BEAKER) (test code = 2801) POCT-GLUCOSE [id number] 22:18:08 Test Item Value Reference Range Interpretation Comments POC-GLUCOSE METER 150 mg/dL 70-110 H : Notified RN/MD: ([facility]) (test code = TESTED AT [facility] 6720 153) [facility], [address]: Rate Examiner/Techni socrates ID = [id number] for HERNÁN SMALLWOOD POCT-GLUCOSE [id number] 18:35:11 Test Item Value Reference Range Interpretation Comments POC-GLUCOSE METER 153 mg/dL 70-110 H : TESTED [facility] T [facility] 6720 ([facility]) (test code [facility], = 153) 99[address]: Rate Examiner/Techni socrates ID = [id number] for GERSONT ODETTE - MINNIE MARROQUINY POCT-GLUCOSE [id number] 12:18:53 Test Item Value Reference Range Interpretation Comments POC-GLUCOSE METER 149 mg/dL 70-110 H : TESTED A T [facility] 6720 ([facility]) (test code [facility], = 1538) 04081: Rate Examiner/Techni socrates ID = [id number] for LATT ODETTE - CARA, BRODERICK POCT-GLUCOSE [id number] 09:02:22 Test Item Value Reference Range Interpretation Comments POC-GLUCOSE METER 138 mg/dL 70-110 H : [facility] T [facility] 6720 [facility] (test code [facility], = 1538) 92427: Rate Examiner/Techni socrates ID = [id number] for BRODERICK VEE BASIC METABOLIC [id number] 06:05:05 Test Item Value Reference Range Interpretation Comments SODIUM (BEAKER) 138 meq/L 136-145 (test code = 381) POTASSIUM 3.7 meq/L 3.5-5.1 (BEAKER) (test code = 379) CHLORIDE (BEAKER) 102 meq/L 98-107 (test code = 382) CO2 (BEAKER) 25 meq/L 22-29 (test code = 355) BLOOD UREA 21 mg/dL 7-21 NITROGEN (BEAKER) (test code = 354) CREATININE 0.67 mg/dL 0.57-1.25 (BEAKER) (test code = 358) GLUCOSE RANDOM 121 mg/dL 70-105 H (BEAKER) (test code = 652) CALCIUM (BEAKER) 8.7 mg/dL 8.4-10.2 (test code = 697) EGFR (BEAKER) 85 Interpretatio n of eGFR (test code = mL/min/1.73 values Stage De scription 1092) sq m Result G1 Isabel l or high >=90 G2 Mildly decreased 60-89 G3a Mildl y to moderately 45-5 9 G3b Moderately to s everely 30-44 G4 Severl y decreased 15-29 G5 Kidney failure <15Reported eGF R is based on the CKD-EPI 2020 equation that d oes not use a race coefficientEsti mated GFR is not as accur ate as Creatinine Dominique trujillo in predicting glom erular filtration rate . Estimated GFR is not appl icable for dialysis patien ts Rate Examiner ID - [id number] 06:05:05 Test Item Value Reference Range Interpretation Comments MAGNESIUM (BEAKER) (test code = 2.1 mg/dL 1.6-2.6 627) Rate Examiner ID - [id number] 06:05:05 Test Item Value Reference Range Interpretation Comments PHOSPHORUS (BEAKER) (test code = 4.8 mg/dL 2.3-4.7 H 604) Rate Examiner ID - MARCOCBC W/PLT COUNT & AUTO [id number] 05:46:55 Test Item Value Reference Range Interpretation Comments WHITE BLOOD CELL COUNT (BEAKER) 8.8 K/ L 3.5-10.5 (test code = 775) RED BLOOD CELL COUNT (BEAKER) 4.00 M/ L 3.93-5.22 (test code = 761) HEMOGLOBIN (BEAKER) (test code = 9.1 GM/DL 11.2-15.7 L 410) HEMATOCRIT (BEAKER) (test code = 30.9 % 34.1-44.9 L 411) MEAN CORPUSCULAR VOLUME (BEAKER) 77 fL 79-95 L (test code = 753) MEAN CORPUSCULAR HEMOGLOBIN 22.8 pg 25.6-32.2 L (BEAKER) (test code = 751) MEAN CORPUSCULAR HEMOGLOBIN CONC 29.4 GM/DL 32.2-35.5 L (BEAKER) (test code = 752) RED CELL DISTRIBUTION WIDTH 15.5 % 11.7-14.4 H (BEAKER) (test code = 412) PLATELET COUNT (BEAKER) (test 311 K/CU MM 150-450 code = 756) MEAN PLATELET VOLUME (BEAKER) 10.0 fL 9.4-12.3 (test code = 754) NUCLEATED RED BLOOD CELLS 0 /100 WBC 0-0 (BEAKER) (test code = 413) NEUTROPHILS RELATIVE PERCENT 57 % (BEAKER) (test code = 429) LYMPHOCYTES RELATIVE PERCENT 31 % (BEAKER) (test code = 430) MONOCYTES RELATIVE PERCENT 8 % (BEAKER) (test code = 431) EOSINOPHILS RELATIVE PERCENT 4 % (BEAKER) (test code = 432) BASOPHILS RELATIVE PERCENT 0 % (BEAKER) (test code = 437) NEUTROPHILS ABSOLUTE COUNT 4.97 K/ L 1.56-6.13 (BEAKER) (test code = 670) LYMPHOCYTES ABSOLUTE COUNT 2.71 K/ L 1.18-3.74 (BEAKER) (test code = 414) MONOCYTES ABSOLUTE COUNT (BEAKER) 0.68 K/ L 0.24-0.36 H (test code = 415) EOSINOPHILS ABSOLUTE COUNT 0.38 K/ L 0.04-0.36 H (BEAKER) (test code = 416) BASOPHILS ABSOLUTE COUNT (BEAKER) 0.02 K/ L 0.01-0.08 (test code = 417) IMMATURE GRANULOCYTES-RELATIVE 0.20 % 0.00-1.00 PERCENT (BEAKER) (test code = 2801) POCT-GLUCOSE [id number] 20:25:43 Test Item Value Reference Range Interpretation Comments POC-GLUCOSE METER 153 mg/dL 70-110 H : TESTED A T [facility] 6720 (BEAKER) ([facility] = [facility], 1538) 84397: Rate Examiner/Techni socrates ID = [id number] for Felicia Watkins POCT-GLUCOSE [id number] 18:10:56 Test Item Value Reference Range Interpretation Comments POC-GLUCOSE METER 162 mg/dL 70-110 H : TESTED A T [facility] 6720 (BEAKER) (test code [facility], = 1538) 35583: Rate Examiner/Techni socrates ID = [id number] for LATT IMORE - CARA, BRODERICK POCT-GLUCOSE [id number] 13:16:14 Test Item Value Reference Range Interpretation Comments POC-GLUCOSE METER 133 mg/dL 70-110 H : TESTED A T [facility] 6720 (BEAKER) (test code [facility], = 1538) 60459: Rate Examiner/Techni socrates ID = [id number] for LATT IMORE - CARA, BRODERICK POCT-GLUCOSE [id number] 08:50:00 Test Item Value Reference Range Interpretation Comments POC-GLUCOSE METER 122 mg/dL 70-110 H : TESTED A T [facility] 6720 (BEAKER) (test code [facility], = 1538) 27900: Rate Examiner/Techni socrates ID = [id number] for LATT IMORE - CARA, BRODERICK CBC W/PLT COUNT & AUTO [id number] 05:50:43 Test Item Value Reference Range Interpretation Comments WHITE BLOOD CELL COUNT (BEAKER) 10.0 K/ L 3.5-10.5 (test code = 775) RED BLOOD CELL COUNT (BEAKER) 4.01 M/ L 3.93-5.22 (test code = 761) HEMOGLOBIN (BEAKER) (test code = 9.1 GM/DL 11.2-15.7 L 410) HEMATOCRIT (BEAKER) (test code = 30.9 % 34.1-44.9 L 411) MEAN CORPUSCULAR VOLUME (BEAKER) 77 fL 79-95 L (test code = 753) MEAN CORPUSCULAR HEMOGLOBIN 22.7 pg 25.6-32.2 L (BEAKER) (test code = 751) MEAN CORPUSCULAR HEMOGLOBIN CONC 29.4 GM/DL 32.2-35.5 L (BEAKER) (test code = 752) RED CELL DISTRIBUTION WIDTH 15.5 % 11.7-14.4 H (BEAKER) (test code = 412) PLATELET COUNT (BEAKER) (test 327 K/CU MM 150-450 code = 756) MEAN PLATELET VOLUME (BEAKER) 10.1 fL 9.4-12.3 (test code = 754) NUCLEATED RED BLOOD CELLS 0 /100 WBC 0-0 (BEAKER) (test code = 413) NEUTROPHILS RELATIVE PERCENT 63 % (BEAKER) (test code = 429) LYMPHOCYTES RELATIVE PERCENT 28 % (BEAKER) (test code = 430) MONOCYTES RELATIVE PERCENT 7 % (BEAKER) (test code = 431) EOSINOPHILS RELATIVE PERCENT 3 % (BEAKER) (test code = 432) BASOPHILS RELATIVE PERCENT 0 % (BEAKER) (test code = 437) NEUTROPHILS ABSOLUTE COUNT 6.25 K/ L 1.56-6.13 H (BEAKER) (test code = 670) LYMPHOCYTES ABSOLUTE COUNT 2.75 K/ L 1.18-3.74 (BEAKER) (test code = 414) MONOCYTES ABSOLUTE COUNT (BEAKER) 0.70 K/ L 0.24-0.36 H (test code = 415) EOSINOPHILS ABSOLUTE COUNT 0.27 K/ L 0.04-0.36 (BEAKER) (test code = 416) BASOPHILS ABSOLUTE COUNT (BEAKER) 0.01 K/ L 0.01-0.08 (test code = 417) IMMATURE GRANULOCYTES-RELATIVE 0.20 % 0.00-1.00 PERCENT (BEAKER) (test code = 2801) [id number] 05:40:36 Test Item Value Reference Range Interpretation Comments PHOSPHORUS (BEAKER) 3.8 mg/dL 2.3-4.7 Specimen moderately (test code = 604) hemolyzed Rate Examiner ID - AAHAMIDBASIC METABOLIC [id number] 05:40:36 Test Item Value Reference Range Interpretation Comments SODIUM (BEAKER) 138 meq/L 136-145 (test code = 381) POTASSIUM 4.4 meq/L 3.5-5.1 Specimen modera tely (BEAKER) (test hemolyzed code = 379) CHLORIDE (BEAKER) 104 meq/L 98-107 (test code = 382) CO2 (BEAKER) 24 meq/L 22-29 (test code = 355) BLOOD UREA 28 mg/dL 7-21 H NITROGEN (BEAKER) (test code = 354) CREATININE 0.90 mg/dL 0.57-1.25 Specimen modera tely (BEAKER) (test hemolyzed code = 358) GLUCOSE RANDOM 117 mg/dL 70-105 H (BEAKER) (test code = 652) CALCIUM (BEAKER) 8.2 mg/dL 8.4-10.2 L (test code = 697) EGFR (BEAKER) 62 Interpretatio n of eGFR (test code = mL/min/1.73 values Stage De scription 1092) sq m Result G1 Isabel l or high >=90 G2 Mildly decreased 60-89 G3a Mildl y to moderately 45-5 9 G3b Moderately to s everely 30-44 G4 Severl y decreased 15-29 G5 Kidney failure <15Reported eGF R is based on the CKD-EPI 2020 equation that d oes not use a race coefficientEsti mated GFR is not as accur ate as Creatinine Dominique cassandra in predicting glom erular filtration rate . Estimated GFR is not appl icable for dialysis patien ts Rate Examiner ID - [id number] 05:40:35 Test Item Value Reference Range Interpretation Comments MAGNESIUM (BEAKER) 2.2 mg/dL 1.6-2.6 Specimen moderately (test code = 627) hemolyzed Rate Examiner ID - AAHAMIDPOCT-GLUCOSE [id number] 00:20:31 Test Item Value Reference Range Interpretation Comments POC-GLUCOSE METER 136 mg/dL 70-110 H : TESTED A T [facility] 6720 (BEAKER) (test code = [facility], 1538) [id number]: Rate Examiner/Techni socrates ID = [id number] for Zev akers (contract), Francisco iliana POCT-GLUCOSE [id number] 16:54:24 Test Item Value Reference Range Interpretation Comments POC-GLUCOSE METER 160 mg/dL 70-110 H : TESTED A T [facility] 67[address] (BEAKER) (test code = [facility], 1538) 90732: Rate Examiner/Techni socrates ID = [id number] for Sridevi Flores POCT-GLUCOSE [id number] 15:00:16 Test Item Value Reference Range Interpretation Comments POC-GLUCOSE METER 169 mg/dL 70-110 H : TESTED A T [facility] (BEAKER) (test code = [facility], 1538) 81892: Rate Examiner/Techni socrates ID = [id number] for Iam macias (contract), Roberto HEMOGLOBIN [id number] 08:42:39 Test Item Value Reference Range Interpretation Comments HEMOGLOBIN A1C 6.8 % See_Comment H [Automated m essage] ELECTROPHORESIS (BEAKER) The system which (test code = 3811) generated this result transmitted ref erence range: <=5.6%. The reference range was not used to int erpret this result as normal/abnormal . "The A1c is measured using a NGSP-certified method. HbA1c value equal to or greater than 6.5% as thediagnosis cutoff for diabetes. An HbA1c value of 5.7- 6.4% indicates increased risk for diabetes (prediabetes)."Rate Examiner ID - ADM [id number] 04:27:27 Test Item Value Reference Range Interpretation Comments MAGNESIUM (BEAKER) 2.1 mg/dL 1.6-2.6 Specimen slightly (test code = 627) hemolyzed Rate Examiner ID - [id number] 04:27:27 Test Item Value Reference Range Interpretation Comments PHOSPHORUS (BEAKER) 3.0 mg/dL 2.3-4.7 Specimen slightly (test code = 604) hemolyzed Rate Examiner ID - MARCOBASIC METABOLIC [id number] 04:27:27 Test Item Value Reference Range Interpretation Comments SODIUM (BEAKER) 137 meq/L 136-145 (test code = 381) POTASSIUM 3.8 meq/L 3.5-5.1 Specimen slight ly (BEAKER) (test hemolyzed code = 379) CHLORIDE (BEAKER) 105 meq/L 98-107 (test code = 382) CO2 (BEAKER) 24 meq/L 22-29 (test code = 355) BLOOD UREA 24 mg/dL 7-21 H NITROGEN (BEAKER) (test code = 354) CREATININE 0.78 mg/dL 0.57-1.25 Specimen slight ly (BEAKER) (test hemolyzed code = 358) GLUCOSE RANDOM 160 mg/dL 70-105 H (BEAKER) (test code = 652) CALCIUM (BEAKER) 8.0 mg/dL 8.4-10.2 L (test code = 697) EGFR (BEAKER) 74 Interpretatio n of eGFR (test code = mL/min/1.73 values Stage De scription 1092) sq m Result G1 Isabel l or high >=90 G2 Mildly decreased 60-89 G3a Mildl y to moderately 45-5 9 G3b Moderately to s everely 30-44 G4 Severl y decreased 15-29 G5 Kidney failure <15Reported eGF R is based on the CKD-EPI 2020 equation that d oes not use a race coefficientEsti mated GFR is not as accur ate as Creatinine Dominique cassandra in predicting glom erular filtration rate . Estimated GFR is not appl icable for dialysis patien ts Rate Examiner ID - MARCOCBC W/PLT COUNT & AUTO [id number] 04:02:29 Test Item Value Reference Range Interpretation Comments WHITE BLOOD CELL COUNT (BEAKER) 14.7 K/ L 3.5-10.5 H (test code = 775) RED BLOOD CELL COUNT (BEAKER) 3.76 M/ L 3.93-5.22 L (test code = 761) HEMOGLOBIN (BEAKER) (test code = 8.9 GM/DL 11.2-15.7 L 410) HEMATOCRIT (BEAKER) (test code = 27.8 % 34.1-44.9 L 411) MEAN CORPUSCULAR VOLUME (BEAKER) 74 fL 79-95 L (test code = 753) MEAN CORPUSCULAR HEMOGLOBIN 23.7 pg 25.6-32.2 L (BEAKER) (test code = 751) MEAN CORPUSCULAR HEMOGLOBIN CONC 32.0 GM/DL 32.2-35.5 L (BEAKER) (test code = 752) RED CELL DISTRIBUTION WIDTH 15.2 % 11.7-14.4 H (BEAKER) (test code = 412) PLATELET COUNT (BEAKER) (test 327 K/CU MM 150-450 code = 756) MEAN PLATELET VOLUME (BEAKER) 9.8 fL 9.4-12.3 (test code = 754) NUCLEATED RED BLOOD CELLS 0 /100 WBC 0-0 (BEAKER) (test code = 413) NEUTROPHILS RELATIVE PERCENT 84 % (BEAKER) (test code = 429) LYMPHOCYTES RELATIVE PERCENT 12 % (BEAKER) (test code = 430) MONOCYTES RELATIVE PERCENT 4 % (BEAKER) (test code = 431) EOSINOPHILS RELATIVE PERCENT 0 % (BEAKER) (test code = 432) BASOPHILS RELATIVE PERCENT 0 % (BEAKER) (test code = 437) NEUTROPHILS ABSOLUTE COUNT 12.30 K/ L 1.56-6.13 H (BEAKER) (test code = 670) LYMPHOCYTES ABSOLUTE COUNT 1.69 K/ L 1.18-3.74 (BEAKER) (test code = 414) MONOCYTES ABSOLUTE COUNT (BEAKER) 0.62 K/ L 0.24-0.36 H (test code = 415) EOSINOPHILS ABSOLUTE COUNT 0.00 K/ L 0.04-0.36 L (BEAKER) (test code = 416) BASOPHILS ABSOLUTE COUNT (BEAKER) 0.01 K/ L 0.01-0.08 (test code = 417) IMMATURE GRANULOCYTES-RELATIVE 0.30 % 0.00-1.00 PERCENT (BEAKER) (test code = 2801) POCT-GLUCOSE [id number] 00:54:42 Test Item Value Reference Range Interpretation Comments POC-GLUCOSE METER 196 mg/dL 70-110 H : TESTED A T [facility] 6720 (BEAKER) (test code = [facility], 1538) [address]: Rate Examiner/Techni socrates ID = [id number] for JAY BAILEY HIGH SENSITIVITY TROPONIN [id number] 19:05:12 Test Item Value Reference Range Interpretation Comments HIGH SENSITIVITY TROPONIN I (test 43 pg/ml <=17 H code = 1984724) Rate Examiner ID - BSThe ADAPTED PHYSICAL EDUCATION SPECIALIST STAT High Sensitivity Troponin-I results should be used in conjunctionwith other diagnostic information such as ECG, clinical observations and information, and patient symptoms to aid in the diagnosis of VT.POCT-GLUCOSE [id number] 17:15:39 Test Item Value Reference Range Interpretation Comments POC-GLUCOSE METER 267 mg/dL 70-110 H : TESTED A T [facility] 6720 (BEAKER) (test code = [facility], 1538) [address]: Rate Examiner/Techni socrates ID = [id number] for Co Sridevi mccullough POCT-GLUCOSE [id number] 12:13:16 Test Item Value Reference Range Interpretation Comments POC-GLUCOSE METER 257 mg/dL 70-110 H : Notified RN/MD: (LEOYA) (test code = TESTED AT [facility] 7219 9982) [facility], [address]: Rate Examiner/Techni socrates ID = [id number] for LL OYD, TIKEYA TSH/FREE T4 IF [id number] 12:08:26 Test Item Value Reference Range Interpretation Comments THYROID STIMULATING HORMONE 0.911 uIU/mL 0.350-4.940 (BEAKER) (test code = 772) Rate Examiner ID - MMHIGH SENSITIVITY TROPONIN [id number] 11:54:08 Test Item Value Reference Range Interpretation Comments HIGH SENSITIVITY TROPONIN I (test 68 pg/ml <=17 H code = 0691481) Rate Examiner ID - MMThe ADAPTED PHYSICAL EDUCATION SPECIALIST STAT High Sensitivity Troponin-I results should be used in conjunctionwith other diagnostic information such as ECG, clinical observations and information, and patient symptoms to aid in the diagnosis of VT.CBC W/PLT COUNT & AUTO [id number] 11:19:14 Test Item Value Reference Range Interpretation Comments WHITE BLOOD CELL COUNT (BEAKER) 10.2 K/ L 3.5-10.5 (test code = 775) RED BLOOD CELL COUNT (BEAKER) 4.23 M/ L 3.93-5.22 (test code = 761) HEMOGLOBIN (BEAKER) (test code = 9.9 GM/DL 11.2-15.7 L 410) HEMATOCRIT (BEAKER) (test code = 32.5 % 34.1-44.9 L 411) MEAN CORPUSCULAR VOLUME (BEAKER) 77 fL 79-95 L (test code = 753) MEAN CORPUSCULAR HEMOGLOBIN 23.4 pg 25.6-32.2 L (BEAKER) (test code = 751) MEAN CORPUSCULAR HEMOGLOBIN CONC 30.5 GM/DL 32.2-35.5 L (BEAKER) (test code = 752) RED CELL DISTRIBUTION WIDTH 15.2 % 11.7-14.4 H (BEAKER) (test code = 412) PLATELET COUNT (BEAKER) (test 344 K/CU MM 150-450 code = 756) MEAN PLATELET VOLUME (BEAKER) 9.8 fL 9.4-12.3 (test code = 754) NUCLEATED RED BLOOD CELLS 0 /100 WBC 0-0 (BEAKER) (test code = 413) NEUTROPHILS RELATIVE PERCENT 89 % (BEAKER) (test code = 429) LYMPHOCYTES RELATIVE PERCENT 10 % (BEAKER) (test code = 430) MONOCYTES RELATIVE PERCENT 1 % (BEAKER) (test code = 431) EOSINOPHILS RELATIVE PERCENT 0 % (BEAKER) (test code = 432) BASOPHILS RELATIVE PERCENT 0 % (BEAKER) (test code = 437) NEUTROPHILS ABSOLUTE COUNT 9.03 K/ L 1.56-6.13 H (BEAKER) (test code = 670) LYMPHOCYTES ABSOLUTE COUNT 1.06 K/ L 1.18-3.74 L (BEAKER) (test code = 414) MONOCYTES ABSOLUTE COUNT (BEAKER) 0.06 K/ L 0.24-0.36 L (test code = 415) EOSINOPHILS ABSOLUTE COUNT 0.00 K/ L 0.04-0.36 L (BEAKER) (test code = 416) BASOPHILS ABSOLUTE COUNT (BEAKER) 0.00 K/ L 0.01-0.08 L (test code = 417) IMMATURE GRANULOCYTES-RELATIVE 0.30 % 0.00-1.00 PERCENT (BEAKER) (test code = 2801) RESPIRATORY [id number] 11:14:11 Test Item Value Reference Range Interpretation Comments [...] detected, (BEAKER) (test code = 3207) Equivocal SEVERE ACUTE RESPIRATORY Not detected Not detected, [id number] Equivocal (test code = 5438669) BORDETELLA PARAPERTUSSIS Not detected Not detected, (BKR) (test code = 8630432) Equivocal Other viruses and bacteria not targeted by this PCR panel cannot be excluded; therefore clinical correlation and follow up of serology, culture results, and other molecular studies is required. The results are not intended to be used as the sole means for clinical diagnosis or patient management decisions. This sample was tested at the [facility] using the SplitSecndArray Respiratory Panel. It is FDA cleared and has been verified and approved by the [facility] for clinical use on nasopharyngeal swab specimens.The performance of the FilmArrayRP has not been established in individuals who received influenza vaccine. Recent administration of a nasal influenza vaccine may cause false positive results for Influenza A and/orInfluenza B.[id number] 10:49:18 Test Item Value Reference Range Interpretation Comments PROCALCITONIN (BEAKER) (test code = < ng/mL <0.05 3036) SEPSIS RISK (ng/mL)Low: 0.05-0.50Intermediate: 0.51-2.00High: >=2.01HIGH SENSITIVITY TROPONIN [id number] 10:36:58 Test Item Value Reference Range Interpretation Comments HIGH SENSITIVITY TROPONIN I (test 69 pg/ml <=17 H code = 3051583) Rate Examiner ID - MMThe ADAPTED PHYSICAL EDUCATION SPECIALIST STAT High Sensitivity Troponin-I results should be used in conjunctionwith other diagnostic information such as ECG, clinical observations and information, and patient symptoms to aid in the diagnosis of VT.B-TYPE NATRIURETIC FACTOR (BNP)2022-05-28 10:36:39 Test Item Value Reference Range Interpretation Comments B-TYPE NATRIURETIC PEPTIDE (BEAKER) 367 pg/mL 0-100 H (test code = 700) Rate Examiner ID - [id number] 09:16:13 Test Item Value Reference Range Interpretation Comments PHOSPHORUS (BEAKER) (test code = 3.0 mg/dL 2.3-4.7 604) Rate Examiner ID - MMCOMPREHENSIVE METABOLIC [id number] 09:16:12 Test Item Value Reference Range Interpretation Comments TOTAL PROTEIN 6.7 gm/dL 6.0-8.3 (BEAKER) (test code = 770) ALBUMIN (BEAKER) 3.5 g/dL 3.5-5.0 (test code = 1145) ALKALINE 113 U/L 40-150 PHOSPHATASE (BEAKER) (test code = 346) BILIRUBIN TOTAL 0.4 mg/dL 0.2-1.2 (BEAKER) (test code = 377) SODIUM (BEAKER) 139 meq/L 136-145 (test code = 381) POTASSIUM (BEAKER) 3.7 meq/L 3.5-5.1 (test code = 379) CHLORIDE (BEAKER) 103 meq/L 98-107 (test code = 382) CO2 (BEAKER) (test 24 meq/L 22-29 code = 355) BLOOD UREA 14 mg/dL 7-21 NITROGEN (BEAKER) (test code = 354) CREATININE 0.69 mg/dL 0.57-1.25 (BEAKER) (test code = 358) GLUCOSE RANDOM 205 mg/dL 70-105 H (BEAKER) (test code = 652) CALCIUM (BEAKER) 8.4 mg/dL 8.4-10.2 (test code = 697) AST (SGOT) 49 U/L 5-34 H (BEAKER) (test code = 353) ALT (SGPT) 41 U/L 6-55 (BEAKER) (test code = 347) EGFR (AJIT) 84 Interpretatio n of eGFR (test code = 1092) mL/min/1.[address] age Description sq m Result G1 Isabel l or high >=90 G2 Mildly decreased 60-89 G3a Mildl y to moderately 45-5 9 G3b Moderately to s everely 30-44 G4 Severl y decreased 15-29 G5 Kidney failure <15Reported eGF R is based on the CKD-EPI 2020 equation that d oes not use a race coefficientEsti mated GFR is not as accur ate as Creatinine Dominique cassandra in predicting glom erular filtration rate . Estimated GFR is not appl icable for dialysis patien ts Rate Examiner ID - [id number] 09:16:12 Test Item Value Reference Range Interpretation Comments MAGNESIUM (AJIT) (test code = 2.0 mg/dL 1.6-2.6 627) Rate Examiner ID - MMRAD, CHEST, 1 VIEW, NON [id number] 09:03:00Reason for exam:- >shortness of breathShould this be performed at the bedside?->Yes [facility] 1935 Sex: FFINAL REPORT Exam: RAD, CHEST, 1 VIEW, NON DEPTDate: 05/28/2022 9:02 AM Indication: Shortness of breath Comparison: Chest x-ray 07/08/2019 FINDINGS: Lines/Tubes:None Lungs:Hazy bilateral lower lobe airspace opacities. Pleura:No pleural effusion. No pneumothorax. Heart/Mediastinum:The cardiomediastinal silhouette is normal in size and contour. Vascular calcifications throughout the thoracic aorta. Bones/Soft Tissues: No acute osseous injury. Abdomen: No free air below the diaphragm. IMPRESSION:Hazy bilateral lower lobe airspace opacities may represent pulmonary edema or pneumonitis.Signed: Karen Pittman MDReport Verified Date/Time: 05/28/2022 09:03:39 LACTIC ACID, [id number] 08:50:45 Test Item Value Reference Range Interpretation Comments LACTATE BLOOD VENOUS 3.84 mmol/L 0.50-2.00 H Specime n moderately (2) (BEAKER) (test hemolyzed code = 2872) Rate Examiner ID - [id number] 08:47:24 Test Item Value Reference Range Interpretation Comments FIBRINOGEN LEVEL (BEAKER) (test 207 mg/dl 225-434 L code = 658) PROTHROMBIN [id number] 08:47:03 Test Item Value Reference Range Interpretation Comments PROTIME (BEAKER) (test code = 14.1 seconds 11.9-14.2 759) INR (BEAKER) (test code = 370) 1.11 <=5.90 RECOMMENDED COUMADIN/WARFARIN INR THERAPY RANGESSTANDARD DOSE: 2.0 - 3.0 Includes: PROPHYLAXIS for venous thrombosis, systemic embolization; TREATMENT for venous thrombosis and/or pulmonary embolus.HIGH RISK: Target INR is 2.5-3.5 for patients with mechanical heart valves.BLOOD GAS, [id number] 08:43:53 Test Item Value Reference Range Interpretation Comments PH ARTERIAL (BEAKER) (test code = 7.52 7.35-7.45 H 383) PCO2 ARTERIAL (BEAKER) (test code 32 mm Hg 35-45 L = 384) PO2 ARTERIAL (BEAKER) (test code = 187 mm Hg 80-90 H 385) O2 SATURATION ARTERIAL (BEAKER) 99.4 % 96.0-97.0 H (test code = 386) HCO3 ARTERIAL (BEAKER) (test code 25 mmol/L 21-29 = 388) BASE EXCESS ARTERIAL (BEAKER) 2.9 mmol/L -2.0-3.0 (test code = 387) PATIENT TEMPERATURE (BEAKER) (test 36.5 code = 1818) FIO2 (BEAKER) (test code = 1819) 40.0 CBC WITH [id number] 00:09:18 Test Item Value Reference Range Interpretation Comments WBC (test code = See_Comment [Automated 6690-2) message] The sy stem which generated this result transmitted reference range : 4.30 - 11.10 10*3/?L. The reference range was not used to interpret this result as normal/abnormal . RBC (test code = See_Comment [Automated 789-8) message] The sy stem which generated this [...] RDW-SD (test code = 45.1 fL 39.0-49.9 60931-3) RDW-CV (test code = 15.3 % 12.0-15.5 788-0) PLT (test code = See_Comment [Automated 777-3) message] The sy stem which generated this result transmitted reference range : 166 - 358 10*3/ ?L. The reference r nanci was not used to interpret this result as normal/abnormal . MPV (test code = 11.4 fL 9.5-12.9 09816-1) NRBC/100 WBC (test See_Comment [Automat ed code = 6680075519) message] The system which generated this result transmitted reference range : 0.0 - 10.0 /100 WBCs. The refer ence range was not u sed to interpret th is result as normal/abnormal . NRBC x10^3 (test code See_Comment [Auto mated = 9352245411) message] The s ystem which generated this result transmitted reference range : 10*3/?L. The reference range was not used to interpret this result as normal/abnormal . GRAN MAT (NEUT) % 57.0 % (test code = 770-8) IMM GRAN % (test code 0.30 % = 2642378145) LYMPH % (test code = 32.1 % 736-9) MONO % (test code = 7.8 % 5905-5) EOS % (test code = 2.5 % 713-8) BASO % (test code = 0.3 % 706-2) GRAN MAT x10^3(ANC) 4.26 10*3/uL 1.88-7.09 (test code = 9288732515) IMM GRAN x10^3 (test 0.00-0.06 code = 4831670768) LYMPH x10^3 (test code 2.40 10*3/uL 1.32-3.29 = 731-0) MONO x10^3 (test code 0.58 10*3/uL 0.33-0.92 = 742-7) EOS x10^3 (test code = 0.19 10*3/uL 0.03-0.39 711-2) BASO x10^3 (test code 0.01-0.07 = 704-7) Lab Interpretation Abnormal (test code = 07393-1) [facility] WITH [id number] 00:09:18 Test Item Value Reference Range Interpretation Comments WBC (test code = 7.47 See_Comment [Automated 9790-2) message] The sy stem which generated this result transmitted reference range : 4.30 - 11.10 10*3/?L. The reference range was not used to interpret this result as normal/abnormal . RBC (test code = 4.42 See_Comment [Automated 599-8) message] The sy stem which generated this [...] RDW-SD (test code = 45.1 fL 39.0-49.9 84390-1) RDW-CV (test code = 15.3 % 12.0-15.5 788-0) PLT (test code = 332 See_Comment [Automated 777-3) message] The sy stem which generated this result transmitted reference range : 166 - 358 10*3/ ?L. The reference r nanci was not used to interpret this result as normal/abnormal . MPV (test code = 11.4 fL 9.5-12.9 74968-3) NRBC/100 WBC (test 0.0 See_Comment [Automat ed code = 0338046489) message] The system which generated this result transmitted reference range : 0.0 - 10.0 /100 WBCs. The refer ence range was not u sed to interpret th is result as normal/abnormal . NRBC x10^3 (test code See_Comment [Auto mated = 8822891171) message] The s ystem which generated this result transmitted reference range : 10*3/?L. The reference range was not used to interpret this result as normal/abnormal . GRAN MAT (NEUT) % 57.0 % (test code = 770-8) IMM GRAN % (test code 0.30 % = 4354602013) LYMPH % (test code = 32.1 % 736-9) MONO % (test code = 7.8 % 5905-5) EOS % (test code = 2.5 % 713-8) BASO % (test code = 0.3 % 706-2) GRAN MAT x10^3(ANC) 4.26 10*3/uL 1.88-7.09 (test code = 5539923959) IMM GRAN x10^3 (test 0.00-0.06 code = 4552048416) LYMPH x10^3 (test code 2.40 10*3/uL 1.32-3.29 = 731-0) MONO x10^3 (test code 0.58 10*3/uL 0.33-0.92 = 742-7) EOS x10^3 (test code = 0.19 10*3/uL 0.03-0.39 711-2) BASO x10^3 (test code 0.01-0.07 = 704-7) Lab Interpretation Abnormal (test code = 09547-8) [facility] WITH [id number] 00:09:18 Test Item Value Reference Range Interpretation Comments WBC (test code = 7.47 See_Comment [Automated 6690-2) message] The sy stem which generated this result transmitted reference range : 4.30 - 11.10 10*3/?L. The reference range was not used to interpret this result as normal/abnormal . RBC (test code = 4.42 See_Comment [Automated 789-8) message] The sy stem which generated this [...] RDW-SD (test code = 45.1 fL 39.0-49.9 62860-0) RDW-CV (test code = 15.3 % 12.0-15.5 788-0) PLT (test code = 332 See_Comment [Automated 777-3) message] The sy stem which generated this result transmitted reference range : 166 - 358 10*3/ ?L. The reference r nanci was not used to interpret this result as normal/abnormal . MPV (test code = 11.4 fL 9.5-12.9 81882-6) NRBC/100 WBC (test 0.0 See_Comment [Automat ed code = 3451452847) message] The system which generated this result transmitted reference range : 0.0 - 10.0 /100 WBCs. The refer ence range was not u sed to interpret th is result as normal/abnormal . NRBC x10^3 (test code See_Comment [Auto mated = 8857579202) message] The s ystem which generated this result transmitted reference range : 10*3/?L. The reference range was not used to interpret this result as normal/abnormal . GRAN MAT (NEUT) % 57.0 % (test code = 770-8) IMM GRAN % (test code 0.30 % = 8519958690) LYMPH % (test code = 32.1 % 736-9) MONO % (test code = 7.8 % 5905-5) EOS % (test code = 2.5 % 713-8) BASO % (test code = 0.3 % 706-2) GRAN MAT x10^3(ANC) 4.26 10*3/uL 1.88-7.09 (test code = 7144416679) IMM GRAN x10^3 (test 0.00-0.06 code = 6186430413) LYMPH x10^3 (test code 2.40 10*3/uL 1.32-3.29 = 731-0) MONO x10^3 (test code 0.58 10*3/uL 0.33-0.92 = 742-7) EOS x10^3 (test code = 0.19 10*3/uL 0.03-0.39 711-2) BASO x10^3 (test code 0.01-0.07 = 704-7) Lab Interpretation Abnormal (test code = 48102-8) [facility] [id number] 09:29:42 Test Item Value Reference Range Interpretation Comments THYROID STIMULATING See_Comment Normal TSH level HORMONE (test code = [place] [address]-6) clinically stab le patient without hypothalamic-pi tuitary-th yroid axis diso rders and no apparent thy roid dysfunction. No reflex testing require d. Unless Otherwise Indic ated, All Testing Perform ed At: [facility] [address] [place] [address] Laboratory Dire ctor: Breonna Ball. CLIA Number [id number] Cap Accreditation N o. [id number] [Autom ated message] The sy stem which generated this result transmitted ref erence range: 0.400 - 4.100 UIU/ML. The ref erence range was not u sed to interpret this result as normal/abnormal . [facility] [id number] 08:36:24 Test Item Value Reference Range Interpretation [...] e Indicated, All Testing Performed At: [facility], [address] [place] [address] Director: Tani Vazquez M.D. IA Number [id number] Cap Accreditation N o. [id number] Lab Interpretation Abnormal (test code = 21847-4) [facility] [id number] 08:11:36 Test Item Value Reference Range Interpretation Comments GLUCOSE (test code = See_Comment H [Autom ated message] 4594-7) The system [employer] generated this result transmitted ref erence range: [...] code = See_Comment L [Au tomated message] 7150-0) The system [employer] generated this result transmitted ref erence range: 0.60 - 1 .30 MG/DL. The refe rence range was not u sed to interpret this result as normal/abnor mal. EGFR (test code = See_Comment [Automate d message] 49757-0) The system [facility] generated this result transmitted ref erence range: >60 ML/MIN/1.73. Th e reference range was not used to int erpret this result as normal/abnormal . BUN/CREAT RATIO (test See_Comment [Auto mated message] code = 3097-3) The system [facility] generated this result transmitted ref erence range: 6 - 28 R ATIO. The reference r nanci was not used to interpret this result as normal/abnor mal. SODIUM (test code = See_Comment [Automa kendrick message] 2951-2) The system [facility] generated this result transmitted ref erence range: 133 - 14 6 MEQ/L. The refe rence range was not u sed to interpret this result as normal/abnor mal. POTASSIUM (test code = See_Comment [Aut omated message] 2823-3) The system [facility] generated this result transmitted ref erence range: 3.5 - 5. 4 MEQ/L. The refe rence range was not u sed to interpret this result as normal/abnor mal. CHLORIDE (test code = See_Comment [Auto mated message] 2075-0) The system [facility] generated this result transmitted ref erence range: 95 - 107 MEQ/L. The reference r nanci was not used to interpret this result as normal/abnor mal. CO2 (test code = See_Comment [Automated message] 1963-8) The system [facility] generated this result transmitted ref erence range: 19 - 31 MEQ/L. The reference r nanci was not used to interpret this result as normal/abnor mal. CALCIUM (test code = See_Comment [Autom ated message] 58418-2) The system [facility] [employer] generated this result transmitted ref erence range: 8.5 - 10 .5 MG/DL. The refe rence range was not u sed to interpret this result as normal/abnor mal. PROTEIN TOTAL (test See_Comment [Automa kendrick message] code = 2885-2) The system [facility] generated this result transmitted ref erence range: 6.1 - 8. 3 G/DL. The reference r nanci was not used to interpret this result as normal/abnor mal. ALBUMIN (test code = See_Comment [Autom ated message] 22487-8) The system [employer] generated this result transmitted ref erence range: 3.5 - 5. 2 G/DL. The reference r nanci was not used to interpret this result as normal/abnor mal. GLOBULINS, SERUM, TOTAL See_Comment [Au tomated message] (test code = 37553-9) The sy stem which generated this result transmitted ref erence range: 1.9 - 3. 7 G/DL. The reference r nanci was not used to interpret this result as normal/abnor mal. A/G RATIO (test code = See_Comment [Aut omated message] 1759-0) The system [employer] generated this result transmitted ref erence range: 1.0 - 2. 6 RATIO. The refe rence range was not u sed to interpret this result as normal/abnor mal. BILIRUBIN TOTAL (test See_Comment [Auto mated message] code = 1975-2) The system [facility] generated this result transmitted ref erence range: <=1.2 MG /DL. The reference r nanci was not used to interpret this result as normal/abnor mal. ALKALINE PHOSPHATASE 119 U/L 40-142 (test code = 6768-6) AST (SGOT) (test code = 21 U/L 9-40 1920-8) ALT (SGPT) (test code = 17 U/L 5-40 Unl ess Otherwise 1744-2) Indicated, All Testing Performed At: [facility], [address] [place] [id number] Laborator y Director: Konstantin BallIA Number [id number] Cap Accreditation N o. [id number] Lab Interpretation Abnormal (test code = 26128-0) [facility] W/AUTO DIFF WITH [id number] 07:12:50 Test Item Value Reference Range Interpretation Comments WHITE BLOOD CELL COUNT See_Comment [Aut omated message] (test code = 72453-1) The sy stem which generated this result transmitted ref erence range: 3.5 - 11 .0 K/UL. The refer ence range was not u sed to interpret this result as normal/abnor mal. RED BLOOD CELL COUNT See_Comment [Autom ated message] (test code = 06078-4) The sy stem which generated this result [...] HEMATOCRIT (test code = 38.5 % 34.0-45.0 59929-0) MEAN CORPUSCULAR VOLUME 84.4 fL 80.0-99.0 (test code = 35503-1) MEAN CORPUSCULAR 28.1 PG 25.0-33.0 HEMOGLOBIN (test code = 30185-0) MEAN CORPUSCULAR See_Comment [Automated message] HEMOGLOBIN CONC (test The sy stem which code = 48011-5) generated th is result transmitted ref erence range: 31.0 - 3 6.0 G/DL. The refer ence range was not u sed to interpret this result as normal/abnor mal. RED CELL DISTRIBUTION 13.0 % 11.5-15.0 WIDTH (test code = 55016-6) NEUTROPHILS % (test code 60.3 % = 99029-0) LYMPHOCYTES % (test code 29.6 % = 66636-3) MONOCYTES % (test code = 6.9 % 16079-8) EOSINOPHILS % (test code 2.7 % = 82697-2) BASOPHILS % (test code = 0.4 % 09561-7) IMMATURE GRANULOCYTES 0.1 % (test code = 82940-4) NUCLEATED RBC'S See_Comment Unless Othe rwise MYELOPEROX STAIN (test Indic ated, All Testing code = 93581-5) Performed At : [facility], [address] [place] [address] Laborator y Director: Konstantin BallIA Number [id number] Cap Accreditation N o. [id number] [Autom ated message] The sy stem which generated this result transmit kendrick reference range : 0.00 - 0.11 K/UL. Th e reference range was not used to int erpret this result as normal/abnormal . PLATELET COUNT (test See_Comment [Autom ated message] code = 13887-0) The system w hich generated this result transmitted ref erence range: 130 - 40 0 K/UL. The reference r nanci was not used to interpret this result as normal/abnor mal. NEUTROPHILS ABSOLUTE See_Comment [Autom ated message] COUNT (test code = The syste m which 89323-8) generated this result transmitted ref erence range: 1.50 - 7 .50 K/UL. The refer ence range was not u sed to interpret this result as normal/abnor mal. LYMPHOCYTES ABSOLUTE See_Comment [Autom ated message] COUNT (test code = The syste m which 81738-6) generated this result transmitted ref erence range: 1.00 - 4 .00 K/UL. The refer ence range was not u sed to interpret this result as normal/abnor mal. MONOCYTES ABSOLUTE COUNT See_Comment [A utomated message] (test code = 34322-2) The sy stem which generated this result transmitted ref erence range: 0.20 - 1 .00 K/UL. The refer ence range was not u sed to interpret this result as normal/abnor mal. BASOPHILS ABSOLUTE COUNT See_Comment [A utomated message] (test code = 29919-9) The sy stem which generated this result [...] to interpret this result as normal/abnor mal. [facility] [id number] 00:00:00 Test Item Value Reference Range Interpretation Comments COLOR UA (test code = 5778-6) Yellow YELLOW/STRAW CLARITY UA (test code = 66111-5) Clear CLEAR GLUCOSE UA (test code = 5792-7) Negative NEGATIVE BILIRUBIN UA (test code = 5770-3) Negative NEGATIVE KETONES UA (test code = 47364-3) Negative NEGATIVE SPECIFIC GRAVITY UA (test code [...] NEGATIVE REDUCING SUBSTANCES URINE (test code = 88642-9) [facility] (19558)2021-09-03 20:37:56 Test Item Value Reference Range Interpretation Comments NA (test code = 138 mmol/L 135-145 8716248390) K (test code = 4.4 mmol/L 3.5-5.0 3298151710) CL (test code = 99 mmol/L 98-108 4233591178) CO2 TOTAL (test code = 28 mmol/L 23-31 6867027212) AGAP (test code = 11 2-16 6403443178) BUN (test code = 18 mg/dL 7-23 9271467490) GLUCOSE (test code = 122 mg/dL 70-110 H 8969175901) CREATININE (test code = 0.59 mg/dL 0.50-1.04 2504636576) TOTAL BILI (test code = 0.5 mg/dL 0.1-1.4 8003229387) CALCIUM (test code = 9.0 mg/dL 8.6-10.6 8246774875) T PROTEIN (test code = 6.6 g/dL 6.3-8.2 7488837686) ALBUMIN (test code = 4.1 g/dL 3.5-5.0 7240514823) ALK PHOS (test code = 91 U/L 34-122 5440717556) ALTv (test code = 21 U/L 5-35 1742-6) AST(SGOT) (test code = 27 U/L 13-40 5074163972) eGFR (test code = 96.9 mL/min/1.73m2 8558133727) ALEXIS (test code = ALEXIS) Association of [...] tests). Lab Interpretation Abnormal (test code = 56034-7) [facility]36 Test Item Value Reference Range Interpretation Comments LIPASE (test code = 1309911610) 184 U/L 0-220 Lab Interpretation (test code = Normal 32599-2) [facility] WITH [id number] 19:27:42 Test Item Value Reference Range Interpretation Comments WBC (test code = 8.34 See_Comment [Automated 8816-2) message] The sy stem which generated this result transmitted reference range : 4.30 - 11.10 10*3/?L. The reference range was not used to interpret this result as normal/abnormal . RBC (test code = 4.38 See_Comment [Automated 755-0) message] The sy stem which generated this [...] RDW-SD (test code = 48.8 fL 39.0-49.9 88258-3) RDW-CV (test code = 15.2 % 12.0-15.5 788-0) PLT (test code = 291 See_Comment [Automated 777-3) message] The sy stem which generated this result transmitted reference range : 166 - 358 10*3/ ?L. The reference r nanci was not used to interpret this result as normal/abnormal . MPV (test code = 11.2 fL 9.5-12.9 89471-2) NRBC/100 WBC (test 0.0 See_Comment [Automat ed code = 6801173885) message] The system which generated this result transmitted reference range : 0.0 - 10.0 /100 WBCs. The refer ence range was not u sed to interpret th is result as normal/abnormal . NRBC x10^3 (test code See_Comment [Auto mated = 4512171722) message] The s ystem which generated this result transmitted reference range : 10*3/?L. The reference range was not used to interpret this result as normal/abnormal . GRAN MAT (NEUT) % 60.5 % (test code = 770-8) IMM GRAN % (test code 0.40 % = 6884470903) LYMPH % (test code = 27.5 % 736-9) MONO % (test code = 8.3 % 5905-5) EOS % (test code = 2.9 % 713-8) BASO % (test code = 0.4 % 706-2) GRAN MAT x10^3(ANC) 5.06 10*3/uL 1.88-7.09 (test code = 7720698695) IMM GRAN x10^3 (test 0.03 10*3/uL 0.00-0.06 code = 1695768895) LYMPH x10^3 (test code 2.29 10*3/uL 1.32-3.29 = 731-0) MONO x10^3 (test code 0.69 10*3/uL 0.33-0.92 = 742-7) EOS x10^3 (test code = 0.24 10*3/uL 0.03-0.39 711-2) BASO x10^3 (test code 0.03 10*3/uL 0.01-0.07 = 704-7) Lab Interpretation Abnormal (test code = 08661-7) [facility] [id number] 00:00:00 Test Item Value Reference Range Interpretation Comments COLOR UA (test code = 5778-6) Yellow YELLOW/STRAW CLARITY UA (test code = Clear CLEAR 17003-1) GLUCOSE UA (test code = Negative NEGATIVE 5792-7) BILIRUBIN UA (test code = Negative NEGATIVE 5770-3) KETONES UA (test code = Negative NEGATIVE 62205-4) SPECIFIC GRAVITY UA (test 1.005-1.035 A code [...] REDUCING SUBSTANCES URINE NEGATIVE (test code = 54469-3) Lab Interpretation (test code Abnormal = 67970-3) [facility] [id number] 00:00:00 Test Item Value Reference Range Interpretation Comments COLOR UA (test code = 5778-6) Light Yellow YELLOW/STRAW CLARITY UA (test code = Cloudy CLEAR 77523-9) GLUCOSE UA (test code = Negative NEGATIVE 5792-7) BILIRUBIN UA (test code = Negative NEGATIVE 5770-3) KETONES UA (test code = Negative NEGATIVE 96349-3) SPECIFIC GRAVITY UA (test 1.005-1.035 code = [...] 5802-4) REDUCING SUBSTANCES URINE (test code = 45161-5) [facility] [id number] 11:28:02 Test Item Value Reference Range Interpretation Comments MAGNESIUM (test code = See_Comment Unle ss Otherwise 03420-1) Indicated, All Testing Performed At: [facility], [address] [place] [address] Laborator y Director: Tani Vazquez M.D. CLIA Number [id number] Cap Accreditation N o. [id number] [Autom ated message] The sy stem which generated this result transmitted ref erence range: 1.6 - 2. 6 MG/DL. The reference r nanci was not used to int erpret this result as normal/abnormal . [facility] [id number] 08:53:12 Test Item Value Reference Range Interpretation Comments GLUCOSE (test code = See_Comment H [Autom ated message] 8325-7) The system [employer] generated this result transmitted ref erence range: [...] L [Au tomated message] 2160-0) The system [employer] generated this result transmitted ref erence range: 0.60 - 1 .30 MG/DL. The refe rence range was not u sed to interpret this result as normal/abnor mal. EGFR AA (test code = See_Comment [Autom ated message] 42441-7) The system [employer] generated this result transmitted ref erence range: >60 ML/MIN/1.73. Th e reference range was not used to int erpret this result as normal/abnormal . EGFR (test code = See_Comment [Automate d message] 64850-9) The system [employer] generated this result transmitted ref erence range: >60 ML/MIN/1.73. Th e reference range was not used to int erpret this result as normal/abnormal . SODIUM (test code = See_Comment [Automa kendrick message] 2951-2) The system [employer] generated this result transmitted ref erence range: 133 - 14 6 MEQ/L. The refe rence range was not u sed to interpret this result as normal/abnor mal. POTASSIUM (test code = See_Comment [Aut omated message] 2823-3) The system [employer] generated this result transmitted ref erence range: 3.5 - 5. 4 MEQ/L. The refe rence range was not u sed to interpret this result as normal/abnor mal. CHLORIDE (test code = See_Comment [Auto mated message] 2075-0) The system [employer] generated this result transmitted ref erence range: 95 - 107 MEQ/L. The refe rence range was not u sed to interpret this result as normal/abnor mal. CO2 (test code = 1963-8) See_Comment [A utomated message] The system [employer] generated this result transmitted ref erence range: 19 - 31 MEQ/L. The reference r nanci was not used to interpret this result as normal/abnor mal. CALCIUM (test code = See_Comment Unless Otherwise 71660-8) Indicated, All Testing Perform ed At: [facility], [address] [facility], [facility] [place] [address] Laborator y Director: Konstantin BallIA Number [id number] Cap Accreditation N o. [id number] [Autom ated message] The sy stem which generated this result transmit kendrick reference range : 8.5 - 10.5 MG/DL. T he reference range was not used to int erpret this result as normal/abnormal . Lab Interpretation (test Abnormal code = 72003-4) [facility] [id number] 08:53:12 Test Item Value Reference Range Interpretation Comments URIC ACID (test code See_Comment Unless Otherwise = 8957025) Indicated, All Testing Performed At: [facility], [address] [place] [address] Laborator y Director: Tani rogers M.D. [place] Number [id number] Cap Accreditation N o. 35697-25 [Automated mess age] The system which ge nerated this result transmit kendrick reference range : 2.7 - 6.1 MG/DL. The refe rence range was not used to interpret this result as normal/abnormal . [facility] HospitalFL, FLUORO, NON-SPECIFIC, UP TO 1 [id number] 09:44:00Reason for exam:->cystoFINAL REPORT A fluoroscopic unit was utilized for a procedure performed in the operating room. No interpretation was requested. Please refer to the operative report regarding findings. Please refer to PACS for patient radiation dose information. Signed: JR Elizabeth, Alla Mast Verified Date/Time: 07/14/2019 09:44:15 Reading Location: [address] Neuro Reading Room BLOOD [id number] 11:00:00 Test Item Value Reference Range Interpretation Comments CULTURE (BEAKER) (test No growth in 5 days code = 1095) BLOOD [id number] 11:00:00 Test Item Value Reference Range Interpretation Comments CULTURE (BEAKER) (test No growth in 5 days code = 1095) URINE [id number] 11:07:00 Test Item Value Reference Range Interpretation Comments CULTURE (BEAKER) (test code = 1095) No growth ANG, NEPHROSTOMY, PERC, EXTERNAL [id number] 11:00:00Reason for exam:- >request left PCN for left obstructing stone, feversFINAL REPORT Procedure: Percutaneous nephrostomy catheter placement. History: Left ureteric calculus with obstruction, infection. Customer Support Agent: Bradford Matthew M.D. [place] Worker: Not applicable, M.D. Modality: Ultrasound and fluoroscopy. DOSE REDUCTION: [...] sequential dilatation of the tract, an 8.5 Vincentian nephrostomy catheter was placed, pigtail locked in [...] the bladder. Impression:Successful ultrasound and fluoroscopicguided 8.5 Vincentian nephrostomy catheter placement left kidney via a posterior inferior calyx as described above. Further management dictated by the clinical scenario. The nephrostomy catheter(s) should be exchanged at the latest in three months. Thank you for the opportunity to assist in the care of your patient. Signed: Bradford Matthew Verified Date/Time: 07/10/2019 11:00:12 Reading Location:[facility] P048 Angio Body Reading Room BASIC METABOLIC [id number] 07:33:00 Test Item Value Reference Range Interpretation [...] 1092) DATA TO CALCULA TE ESTIMATED GFR. Rate Examiner ID - MONIE [id number] 07:25:00 Test Item Value Reference Range Interpretation Comments MAGNESIUM (BEAKER) (test code = 2.2 mg/dL 1.6-2.6 627) Rate Examiner ID - MONIE CHEPATIC FUNCTION [id number] 07:25:00 Test Item Value Reference Range Interpretation [...] (test code = 43 U/L 6-55 347) Rate Examiner ID - MONIE CCBC W/PLT COUNT & AUTO [id number] 06:54:00 Test Item Value Reference Range Interpretation [...] (BEAKER) (test code = 2801) BASIC METABOLIC [id number] 05:38:00 Test Item Value Reference Range Interpretation [...] 1092) DATA TO CALCULA TE ESTIMATED GFR. Rate Examiner ID - [id number] 05:24:00 Test Item Value Reference Range Interpretation Comments MAGNESIUM (BEAKER) (test code = 1.8 mg/dL 1.6-2.6 627) Rate Examiner ID - LAHEPATIC FUNCTION [id number] 05:24:00 Test Item Value Reference Range Interpretation [...] (test code = 36 U/L 6-55 347) Rate Examiner ID - LACBC W/PLT COUNT & AUTO [id number] 04:34:00 Test Item Value Reference Range Interpretation [...] (BEAKER) (test code = 2801) LACTIC ACID, [id number] 20:25:00 Test Item Value Reference Range Interpretation Comments LACTATE BLOOD VENOUS (2) (BEAKER) 0.69 mmol/L 0.50-2.20 (test code = 2872) Rate Examiner ID - NTPRAD, CHEST, 1 VIEW, NON [id number] 16:24:00Reason for exam:->feverShould this be performed at the bedside?->YesFINAL REPORT CLINICAL HISTORY: fever TECHNIQUE: 1 view of the chest. COMPARISON: None IMPRESSION: There is possible retrocardiac left lower lobe consolidation, for which clinical correlation for pneumonia is requested. There is blunting of the left costophrenic angle. The heart isnot enlarged. Signed: Rich Rebolledo MDReport Verified Date/Time: 07/08/2019 16:24:52 Reading Location: [address] Neuro Reading Room HEMOGLOBIN [id number] 13:56:00 Test Item Value Reference Range Interpretation Comments HEMOGLOBIN A1C (BEAKER) (test code = 6.1 % 4.3-6.1 368) URINALYSIS W/ REFLEX URINE [id number] 13:15:00 Test Item Value Reference Range Interpretation [...] = 516) SOURCE(BEAKER) (test code = 2795) Rate Examiner ID - [auto]Rate Examiner ID - techRESPIRATORY PANEL [id number] 12:14:00 Test Item Value Reference Range Interpretation [...] sample was tested at the [facility] using the SplitSecndArray Respiratory Panel. It is FDA cleared and has been verified and approved by the [facility] for clinical use on nasopharyngeal swab specimens.The performance of the FilmArrayRP has not been established in individuals who received influenza vaccine. Recent administration of a nasal influenza vaccine may cause false positive results for Influenza A and/orInfluenza B.SARS-COV2/RT-PCR ([facility])2019-07-08 11:26:00 Test Item Value Reference Range Interpretation Comments SARS-COV2/RT-PCR (test Not Detected Not Detected, Negative code = 5941241) SARS-COV-[address] [facility] (test code = 6453400) Negative results do not preclude SARS-CoV-2 infection [...] of the Act.Fact Sheet for Healthcare Pro viders:https://www.[employer]/Documents/Xpert%20Xpress%20SARS%20CoV-2/Fact%20Sh eets/302-3802%66XINQ-VVP-6%20HEALTHCARE%20PROVIDERS%20FACT%20SHEET.pdfFact Sheet for Healthcare Patients:https://www.[employer]/Documents/Xpert%20Xpress%20SARS%20CoV-2/Fact%20Sheets/302-3801%20SARS-COV -2%20PATIENT%20FACT%20SHEET.pdfPerforming Laboratory:[facility] [place], [place] [address]liana larissa.[place], [place] [address]FNUNJ METABOLIC [id number] 10:06:00 Test Item Value Reference Range Interpretation [...] 1092) DATA TO CALCULA TE ESTIMATED GFR. Rate Examiner ID - [id number] 10:05:00 Test Item Value Reference Range Interpretation Comments MAGNESIUM (BEAKER) (test code = 2.0 mg/dL 1.6-2.6 627) Rate Examiner ID - NTPHEPATIC FUNCTION [id number] 10:05:00 Test Item Value Reference Range Interpretation [...] (test code = 30 U/L 6-55 347) Rate Examiner ID - [id number] 09:53:00 Test Item Value Reference Range Interpretation [...] 2.5-3.5 for patients wiht mechanical heart valves.PROTHROMBIN TIME/[id number] 09:51:00 Test Item Value Reference Range Interpretation [...] for patients wiht mechanical heart valves.LACTIC ACID, [id number] 09:50:00 Test Item Value Reference Range Interpretation Comments LACTATE BLOOD VENOUS (2) (BEAKER) 2.87 mmol/L 0.50-2.20 H (test code = 2872) Rate Examiner ID - NTPCBC W/PLT COUNT & AUTO [id number] 09:41:00 Test Item Value Reference Range Interpretation [...]
[2022-07-10] MEDS ORDERED: POLYETHYL GLY 3350 17 GM/DOSE ONE (20:39)
--- NOTE | 2022-07-10 21:17 | RAD REPORT ---
EXAM DESCRIPTION: RAD - Chest Single View - 07/10/2022 8:41 pm CLINICAL HISTORY: DYSPNEA COMPARISON: Chest Single View dated 05/28/2022; Chest Single View dated 05/08/2022; Chest Single View dated 03/11/2022; Chest Single View dated 02/15/2022 FINDINGS: Lines: None. Lungs: No evidence of edema or pneumonia. Improved aeration from prior. Pleural: No significant pleural effusions or pneumothorax. Cardiac: Similar mild cardiomegaly. Mediastinum: Within normal limits. Bones: No acute fractures. Other: None IMPRESSION: No acute cardiopulmonary disease. Improved aeration from prior.
[2022-07-10 21:57] LABS: ALT/SGPT 23 U/L (13-56); Albumin 3.4 g/dL (3.4-5.0); Alkaline Phosphatase 96 U/L (45-117); BUN Blood Urea Nitrogen 18 mg/dL (7-18); Bicarbonate 27 mEq/L (21-32); Bilirubin Total 0.2 mg/dL (0.2-1.0); Glomerular Filtration Rate 88 ml/min (=/>90); Glucose Level 130 mg/dL (74-106); NT PRO-BNP 1183 pg/mL (<450); Protein, Total 7.2 g/dL (6.4-8.2); Sodium Level 132 mEq/L (136-145); Troponin High Sensitivity 34.4 pg/mL (<58.9)
[2022-07-10 22:00] LABS: AST/SGOT 27 U/L (15-37); Potassium 3.8 mEq/L (3.5-5.1)
[2022-07-10 22:01] LABS: Bilirubin Direct < 0.1 mg/dL (0-0.2); Bilirubin Indirect, Calculated ND mg/dL (0.2-0.8); Magnesium 2.3 mg/dL (1.6-2.4)
[2022-07-10] MEDS ORDERED: FUROSEMIDE 40 MG/4 ML VIAL ONE (22:42)
[2022-07-10 23:47] LABS: Hematocrit 32.7 % (36.0-45.0); Lymphocytes % 26.4 % (15.3-44.8); MCV 70.5 fL (80-100); MPV 8.4 fL (7.6-11.3); RBC Red Blood Cell Count 4.63 M/uL (3.86-4.86)
[2022-07-11] MEDS ORDERED: BISACODYL 10 MG RECTAL SUPP ONE (01:25)
[2022-07-11] MEDS ORDERED: LACTULOSE 20 GM/30 ML UCUP ONE (01:26)
[2022-07-11] MEDS ORDERED: FLEET ENEMA ADULT PR ONE (01:37)
--- NOTE | 2022-07-11 02:12 | EDPHYS ---
Physician Documentation [facility] Name: Erika Jacobson Age: 87 yrs Sex: Female : 1935 Arrival Date: 07/10/2022 Time: 18:55 Bed 2 Private MD: ED Physician Bossman Bower HPI: 07/10 19:54 This 87 yrs old Female presents to ER via Ambulatory with complaints of rt Constipation, Leg Swelling. 19:54 Patient presents to the ED with 4 days of constipation. She states that she has been rt straining to use the bathroom, cannot make a bowel movement. The patient states that she has tried Dulcolax to no relief. She denies any abdominal pain, nausea, vomiting. Patient states that she has had a swelling of her feet bilaterally. She does report feeling mildly short of breath. Denies chest pain, denies other acute complaints at this time. Symptoms are moderate in severity, no other aggravating or alleviating factors. Historical: - Allergies: 19:34 No Known Allergies; nj1 - Home Meds: 21:28 Lasix 40 mg oral tablet 2 times per day [Active]; aa9 - PMHx: 19:34 Asthma; CVA; Hyperlipidemia; Hypertension; Congestive heart failure; nj1 - PSHx: 19:34 choleycestectomy; hysterectomy; kidney stones; nj1 - Immunization history:: Client reports receiving the 2nd dose of the Covid vaccine. - Social history:: Smoking status: Patient denies any tobacco usage or history of. - Family history:: not pertinent. ROS: 19:54 Constitutional: Negative for fever, chills, and weight loss, Cardiovascular: Negative rt for chest pain, palpitations, and edema, MS/Extremity: Negative for injury and deformity, Skin: Negative for injury, rash, and discoloration, Neuro: Negative for headache, weakness, numbness, tingling, and seizure, Psych: Negative for depression, anxiety, suicide ideation, homicidal ideation, and hallucinations. 19:54 Respiratory: Positive for shortness of breath, Negative for wheezing. 19:54 Abdomen/GI: Positive for constipation, Negative for abdominal pain, nausea, vomiting, and diarrhea. 19:54 MS/extremity: Positive for swelling, Negative for injury or acute deformity. Exam: 19:54 Constitutional: This is a well developed, well nourished patient who is awake, alert, rt and in no acute distress. Head/Face: Normocephalic, atraumatic. Chest/axilla: Normal chest wall appearance and motion. Nontender with no deformity. No lesions are appreciated. Cardiovascular: Regular rate and rhythm with a normal S1 and S2. No gallops, murmurs, or rubs. Normal PMI, no JVD. No pulse deficits. Respiratory: Lungs have equal breath sounds bilaterally, clear to auscultation and percussion. No rales, rhonchi or wheezes noted. No increased work of breathing, no retractions or nasal flaring. Abdomen/GI: Soft, non-tender, with normal bowel sounds. No distension or tympany. No guarding or rebound. No evidence of tenderness throughout. Skin: Warm, dry with normal turgor. Normal color with no rashes, no lesions, and no evidence of cellulitis. Neuro: Awake and alert, GCS 15, oriented to person, place, time, and situation. Cranial nerves II-XII grossly intact. Motor strength 5/5 in all extremities. Sensory grossly intact. Cerebellar exam normal. Normal gait. Psych: Awake, alert, with orientation to person, place and time. Behavior, mood, and affect are within normal limits. 19:54 Musculoskeletal/extremity: 2+ symmetric bilateral lower extremity edema. 21:20 ECG was reviewed by the Attending Physician. rt Vital Signs: 19:23 BP 136 / 55; Pulse 86; Resp 18; Temp 99.4(O); Pulse Ox 95% ; Weight 62.6 kg; Height 5 nj1 ft. 3 in. ; Pain 0/10; 21:19 BP 140 / 60; Pulse 79; Resp 16 S; Pulse Ox 100% on R/A; as6 23:26 BP 131 / 98; Pulse 76; Resp 19 S; Pulse Ox 98% on R/A; as6 19:23 Body Mass Index 24.45 (62.60 kg, 160.02 cm) nj1 19:23 Pain Scale: Adult nj1 MDM: 19:33 Patient medically screened. rt 07/11 02:33 Differential Diagnosis Bowel obstruction, stercoral proctitis, constipation. Data rt reviewed: vital signs, nurses notes, lab test result(s), EKG, radiologic studies. Consideration of Admission/Observation Escalation of care including admission/observation considered. Patient not hypoxic, does not require admission. I considered the following discharge prescriptions or medication management in the emergency department Medications were administered in the Emergency Department. See MAR. Independent interpretation of the following test(s) in the Emergency Department CT Scan: My interpretation is No obstruction seen on mitral rotation of the CT scan images. Care significantly affected by the following chronic conditions: Congestive Heart Failure. Counseling: I had a detailed discussion with the patient and/or guardian regarding: the historical points, exam findings, and any diagnostic results supporting the discharge/admit diagnosis, lab results, radiology results, the need for outpatient follow up. Response to treatment: the patient's symptoms have markedly improved after treatment. 07/10 19:33 Order name: Basic Metabolic Panel; Complete Time: 22:27 rt 07/10 19:33 Order name: CBC with Diff; Complete Time: 23:53 rt 07/10 19:33 Order name: LFT's; Complete Time: 22: rt 07/10 19:33 Order name: Magnesium; Complete Time: 22: rt 07/10 19:33 Order name: NT PRO-BNP; Complete Time: 22:27 rt 07/10 19:33 Order name: Troponin HS; Complete Time: 22:27 rt 07/10 19:33 Order name: XRAY Chest (1 view); Complete Time: 21:20 rt 07/10 19:33 Order name: CT Abd/Pelvis - IV Contrast Only rt 07/10 19:33 Order name: EKG; Complete Time: 19:34 rt 07/10 19:33 Order name: Cardiac monitoring; Complete Time: 21:18 rt 07/10 19:33 Order name: EKG - Nurse/Tech; Complete Time: 21:18 rt 07/10 19:33 Order name: IV Saline Lock; Complete Time: 23:26 rt 07/10 19:33 Order name: Labs collected and sent; Complete Time: 21:18 rt 07/10 19:33 Order name: O2 Per Protocol; Complete Time: 21:18 rt 07/10 19:33 Order name: O2 Sat Monitoring; Complete Time: 21:18 rt EC/28 21:20 Rate is 79 beats/min. Rhythm is regular, Normal Sinus Rhythm with No ectopy, Left rt bundle branch block. QRS [place] is Normal. FL interval is normal. QRS interval is normal. QT interval is normal. No Q waves. Interpreted by me. Administered Medications: 21:18 Drug: Miralax PO 17 grams Route: PO; as6 23:25 Drug: Furosemide IVP 40 mg Route: IVP; Site: right antecubital; as6 07/11 01:38 Drug: Lactulose PO 20 grams Volume: 30 ml; Route: PO; aa9 01:38 Drug: Bisacodyl FL Enema (10 mg/30mL) 10 mg Route: FL; aa9 Disposition Summary: 07/11/22 02:11 Discharge Ordered Location: Home rt Problem: new rt Symptoms: are resolved rt Condition: Stable rt Diagnosis - Constipation, unspecified rt - Edema, unspecified rt Followup: rt - With: Private Physician - When: 2 - 3 days - Reason: Discharge Instructions: - Discharge Summary Sheet rt - Constipation, Adult rt - Peripheral Edema rt Forms: - Medication Reconciliation Form rt - Thank You Letter rt - Antibiotic Education rt - Prescription Opioid Use rt Prescriptions: - Lasix 20 mg Oral Tablet - take 1 tablet by ORAL route once daily; 5 tablet; Refills: 0, Product Selection rt Permitted Signatures: Dispatcher [employer] Stevo Murrell RN RN as6 Tamara Frances RN RN aa9 Bossman Bower MD MD rt Isabel Hou RN RN nj1
--- NOTE | 2022-07-11 02:12 | ER ---
Nurse's Notes [facility] Name: Erika Jacobson Age: 87 yrs Sex: Female : 1935 Arrival Date: 07/10/2022 Time: 18:55 Bed 2 Private MD: Diagnosis: Constipation, unspecified;Edema, unspecified Presentation: 07/10 19:23 Chief complaint: Patient states: Constipation for 4 days, nathen leg swelling that has nj1 gotten worse. Coronavirus screen: Vaccine status: Patient reports receiving the 2nd dose of the covid vaccine. Ebola Screen: Patient denies travel to an Ebola-affected area in the 21 days before illness onset. Initial Sepsis Screen: Does the patient meet any 2 criteria? No. Patient's initial sepsis screen is negative. Does the patient have a suspected source of infection? No. Patient's initial sepsis screen is negative. Risk Assessment: Do you want to hurt yourself or someone else? Patient reports no desire to harm self or others. Onset of symptoms was July 06, 2022. 19:23 Method Of Arrival: Ambulatory nj 19:23 Acuity: ISHAN 3 nj1 Historical: - Allergies: 19:34 No Known Allergies; nj1 - Home Meds: 21:28 Lasix 40 mg oral tablet 2 times per day [Active]; aa9 - PMHx: 19:34 Asthma; CVA; Hyperlipidemia; Hypertension; Congestive heart failure; nj1 - PSHx: 19:34 choleycestectomy; hysterectomy; kidney stones; nj1 - Immunization history:: Client reports receiving the 2nd dose of the Covid vaccine. - Social history:: Smoking status: Patient denies any tobacco usage or history of. - Family history:: not pertinent. Screenin:19 [facility] ED Fall Risk Assessment (Adult) Score/Fall Risk Level 0 - 2 = Low Risk. Abuse as6 screen: Denies threats or abuse. Denies injuries from another. Nutritional screening: No deficits noted. Tuberculosis screening: No symptoms or risk factors identified. Assessment: 21:19 General: Appears in no apparent distress. Behavior is calm, cooperative. Pain: Denies as6 pain. Neuro: Level of Consciousness is awake, alert, obeys commands, Oriented to person, place, time, situation. Cardiovascular: Capillary refill < 3 seconds Patient's skin is warm and dry. Respiratory: Respiratory effort is even, unlabored, Respiratory pattern is regular, symmetrical. GI: Abdomen is round distended, Reports constipation. 22:15 Reassessment: Patient appears in no apparent distress at this time. Patient and/or aa9 family updated on plan of care and expected duration. Pain level reassessed. Patient is alert, oriented x 3, equal unlabored respirations, skin warm/dry/pink. pt ambulated with cane to restroom. 07/11 02:27 Reassessment: Patient appears in no apparent distress at this time. Patient and/or aa9 family updated on plan of care and expected duration. Pain level reassessed. Patient is alert, oriented x 3, equal unlabored respirations, skin warm/dry/pink. discharge pending patient having a bowel movement Patient states symptoms have improved. 02:49 Reassessment: Patient appears in no apparent distress at this time. Patient and/or aa9 family updated on plan of care and expected duration. Pain level reassessed. Patient is alert, oriented x 3, equal unlabored respirations, skin warm/dry/pink. Patient states feeling better. Patient states symptoms have improved. Vital Signs: 07/10 19:23 BP 136 / 55; Pulse 86; Resp 18; Temp 99.4(O); Pulse Ox 95% ; Weight 62.6 kg; Height 5 nj1 ft. 3 in. ; Pain 0/10; 21:19 BP 140 / 60; Pulse 79; Resp 16 S; Pulse Ox 100% on R/A; as6 23:26 BP 131 / 98; Pulse 76; Resp 19 S; Pulse Ox 98% on R/A; as6 19:23 Body Mass Index 24.45 (62.60 kg, 160.02 cm) nj1 19:23 Pain Scale: Adult nj1 ED Course: 18:56 Patient arrived in ED. am2 18:58 Bossman Bower MD is Attending Physician. rt 19:34 Triage completed. nj1 19:34 Arm band placed on left wrist. nj1 20:43 XRAY Chest (1 view) In Process Unspecified. EDMS 20:48 Stevo Jean, RN is Primary Nurse. as6 21:19 Bed in low position. Call light in reach. Side rails up X2. Adult w/ patient. as6 22:25 Missed attempt(s): 22 gauge in left antecubital area. Bleeding controlled, band aid aa9 applied, catheter tip intact. 22:30 Missed attempt(s): 22 gauge in left forearm. Bleeding controlled, band aid applied, aa9 catheter tip intact. 23:26 Inserted saline lock: 20 gauge in right antecubital area, using aseptic technique. as6 Blood collected. ultrasound guided, long catheter. 07/11 00:16 CT Abd/Pelvis - IV Contrast Only In Process Unspecified. EDMS 02:35 Cleaned of incontinence. aa9 02:48 No provider procedures requiring assistance completed. IV discontinued, intact, aa9 bleeding controlled, No redness/swelling at site. Pressure dressing applied. Administered Medications: 07/10 21:18 Drug: Miralax PO 17 grams Route: PO; as6 23:25 Drug: Furosemide IVP 40 mg Route: IVP; Site: right antecubital; as6 07/11 01:38 Drug: Lactulose PO 20 grams Volume: 30 ml; Route: PO; aa9 01:38 Drug: Bisacodyl [place] Enema (10 mg/30mL) 10 mg Route: TX; aa9 Medication: 07/10 21:19 VIS not applicable for this client. as6 Outcome: 07/11 02:11 Discharge ordered by MD. rt 02:48 Discharged to home via wheelchair, with family. aa9 02:48 Condition: stable 02:48 Discharge instructions given to patient, family, Instructed on discharge instructions, follow up and referral plans. medication usage, Demonstrated understanding of instructions, follow-up care, medications, Prescriptions given X 1. 02:49 Patient left the ED. aa9 Signatures: Dispatcher [employer] EDMD Ree Ramírez am2 Stevo Jean RN RN as6 Tamara Frances RN RN aa9 Bossman Bower MD MD rt Isabel Hou RN RN nj1 Corrections: (The following items were deleted from the chart) 07/10 19:38 19:23 Pulse 86bpm; Resp 18bpm; Pulse Ox 95%; Temp 99.4F Oral; 62.6 kg; Height 5 ft. 3 nj1 in.; BMI: 24.4; Pain 0/10, Adult; nj1
[2022-07-11 02:58] VITALS: TEMP 99.4
[2022-07-11 03:14] VITALS: BP 131/98; O2SAT 98
--- NOTE | 2022-07-11 16:44 | RAD REPORT ---
EXAM DESCRIPTION: CT - Abdomen Pelvis W Contrast - 07/11/2022 6:42 am CLINICAL HISTORY: 87 years, Female, CONSTIPATION COMPARISON: 02/28/2022. TECHNIQUE: Contrast-enhanced images of the abdomen and pelvis were performed utilizing 5 mm slice th ickness at 5 mm interval reconstruction from the lung bases to the ischial tuberosities after the adm inistration of IV contrast. In addition multiplanar reformats in the coronal and sagittal plane were obtained and reviewed. This exam was performed according to our departmental dose-optimization protocol, which includes auto mated exposure control, adjustment of the mA and/or kV according to patient size and/or use of iterat gretel reconstruction technique. FINDINGS: Some of the images are comprised by breathing motion artifact limiting diagnostic value. The lung bases demonstrate minimal dependent atelectatic changes.. The liver, pancreas, spleen and adrenal glands demonstrate to be unremarkable, no focal lesions are n oted. Surgical clips within the gallbladder fossa correspond to previous cholecystectomy. No signific ant biliary duct dilatation. The kidneys demonstrate normal uptake of contrast media. No evidence for nephrolithiasis and/or hydro nephrosis. Grossly the unopacified stomach, small bowel and large bowel demonstrate to be within normal limits. There is no evidence for bowel dilatation/or free air. There is fluid-filled right site colon and transverse colon and fecal residue throughout the left site colon perhaps suggesting mild constipati on. The urinary bladder demonstrate to be unremarkable. The uterus is absent. There are no adnexal mass es. The aorta demonstrate minimal atherosclerotic disease. There is no retroperitoneal lymphadeno alysia. There is no evidence for ascites/or abnormal fluid collections. The bone windows demonstrate bony osteopenia with minimal degenerative changes at L4-L5. IMPRESSION: Fluid-filled right site colon and transverse colon and fecal residue throughout the left site colon perhaps suggesting mild constipation. Status post cholecystectomy and hysterectomy. Electronically signed by: Ge David MD 07/11/2022 1:18 AM CDT Due to temporary technical issues with the PACS/Fluency reporting system, reports are being signed by the in house radiologists without review as a courtesy to insure prompt reporting. The interpreting radiologist is fully responsible for the content of the report.
--- NOTE | 2022-07-13 07:13 | EKG ---
Test Date: 2022-07-10 Test Time: 20:59:36 Sleeve Ironer: MEASUREMENT RESULTS: Intervals: Rate: 79 VT: 164 QRSD: 144 QT: 442 QTc: 506 Canon: P: 62 VT: 164 QRS: 58 T: 66 INTERPRETIVE STATEMENTS: Normal sinus rhythm with sinus arrhythmia Left bundle branch block Abnormal ECG Compared to ECG 05/28/2022 02:00:16 Left bundle-branch block now present Ventricular premature complex(es) no longer present Electronically Signed On 07-13-22 07:07:24 CDT by Marcel Dean
== END 2022-07-11 02:49 | disposition home or self-care (01) ==
LOC: ER 18:55
DX: K59.00 Constipation, unspecified (principal); R60.9 Edema, unspecified; I10 Essential (primary) hypertension; I50.9 Heart failure, unspecified; Z86.73 Personal history of transient ischemic attack (TIA), and cerebral infarction without residual deficits
CPT/HCPCS: 93005; 85025; 80048; 36415; 83735; 80076; 84484; 83880; 74177; 71045; 96374; 99284; Q9967; J1940

== ENCOUNTER 2022-08-03 04:42 | Emergency (ER) | payer OTHER ==
--- OUTSIDE RECORDS SUMMARY | 2022-08-03 05:03 | XMS REPORT | Continuity of Care Document ---
:1935 Author Organization [facility] t Address [address] [facility]. [address] [place] [address] Care Team Providers Name Role Phone Carmelita MURGUIA, Wu Primary Care Physician LILIANA LI Attending Clinician Unavailable WON MATT Attending Clinician Unavailable WON MATT Attending Clinician Unavailable TERESITA, CECI K.HGertrude Attending Clinician Unavailable ANGELA CUNNINGHAM Attending Clinician Unavailable ANGELA CUNNINGHAM Attending Clinician Unavailable Ceci Lo MD K.H. Attending Clinician Doctor Unassigned, [place] Attending Clinician Unavailable Lab, Thom Beaver Attending Clinician Unavailable Pob, Adc Lab Main Attending Clinician Unavailable Samreen Lee LMSW Attending Clinician STELLA GOODWIN Attending Clinician Unavailable KERLINE BURTON Attending Clinician Unavailable Won Matt MD Attending Clinician NurseLucie Neurology Attending Clinician Unavailable Unknown, Attending Attending Clinician Unavailable Jh MURGUIA, Emma Attending Clinician Nirmala HEAVY EQUIPMENT TECHNICIAN, Araseli Attending Clinician Rea HEAVY EQUIPMENT TECHNICIAN, Tamela Attending Clinician TAMELA LUCIA Attending Clinician Unavailable CHARY DONALD Attending Clinician Unavailable Chary Infante Attending Clinician DANIEL PÉREZ Attending Clinician Unavailable ITALIA PRESTON Attending Clinician Unavailable Keerthi Cuenca MD Attending Clinician Ree Mccartney MD Attending Clinician Daniela, Thom Db Test Attending Clinician Unavailable Tera Cuenca Attending Clinician TERA MORALES Attending Clinician Unavailable KALYN PARADA Attending Clinician Unavailable KEERTHI CUENCA Attending Clinician Unavailable Lyla GLASS, Amaya Attending Clinician Gerardo Tee MD Attending Clinician Cristobal PALAFOX, Pamela Roman Attending Clinician Unavailable Austin Hobson [...] Attending Clinician Unavailable Mirella Villalobos Attending Clinician [phone] Shy Miller Attending Clinician Unavailable 2, [facility] Attending Clinician Unavailable LILIANA LI Admitting Clinician Unavailable BOB HUI Admitting Clinician Unavailable WON MATT Admitting Clinician Unavailable AUSTIN HOBSON Admitting Clinician Unavailable ADRIANA HARTMANN Admitting Clinician Unavailable Payers Payer Name Policy Type Policy Number Effective Date Expiration Date Michael alvarez AARP/MEDICARE [id number] 2019 COMPLETE 00:00:00 WELLMED/AARP [id number] 2019 MEDICARE 00:00:00 ADVANTAGE [place]ICA[place] [id number] 2017 [place] 00:00:00 [id number] [facility] [id number] [facility] [id number] 2019 2020 [facility] - 00:00:00 00:00:00 Community MEDICARE [...] Medical Branch Uses Uses Disease Active Univers Filipino as Filipino as 07-10 it y of primary primary 00:00: [place] spoken spoken 00 Medical language language Branch History of History of Disease Active Overview : Univers CVA CVA - Formattin ity of (cerebrova (cerebrova 00:00: g of this [place] scular scular 00 note Medical accident) accident) [...] vers appetite appetite 2-06 ity of 00:00: 00 Medical Branch Asthma in Asthma in [...] Active Uni vers 9-25 ity of 00:00: [place] 00 Medical Branch COVID-19 COVID-19 Disease Active Unive rs virus virus 7-20 it[place] of infection [place] 00:[place] GERD GERD Disease Active Univers (gastroeso (gastroeso 7-20 it y of phageal phageal 00:00: [place] reflux reflux 00 Medical disease) disease) Branch Neuropathy Neuropathy Disease Active U nivers of both of both 7-20 ity of feet feet 00:00: [place] Medical [facility] Ureteropel Ureteropel Disease Active 2019- U nivers bessie bessie 5-25 ity of junction junction 00:00: [place] (UPJ) (UPJ) 00 Medical obstructio obstructio Br anch n, left n, left Abdominal Abdominal Disease [facility] Sepsis Sepsis Disease Recurre [facility] Hypertensi Hypertensi Disease Active [facility] Center Bilateral Bilateral Disease Active 2018-02 Uni vers foot pain foot pain 1-26 ity of 00:00: [place] Medical Branch Kidney Kidney Disease Active 2017-02 Univers stone stone 0-15 ity of 00:00: [place] [facility] Abnormal Abnormal Disease Active 2017-02 [...] 0-02 it y of on on 00:00: [place] [address] Medical Branch HLD HLD Disease Active 2016-02 Univers (hyperlipi (hyperlipi 0-02 it y of demia) demia) 00:00: [place] [address] Medical Branch History of History of Disease Active 2016-02 U nivers chest pain chest pain 0-02 it y of 00:00: [place] [address] Medical Branch Palpitatio Palpitatio Disease Active 2016-02 U nivers ns ns 0-02 ity of 00:00: [place] [address] Medical Branch Osteoporos Osteoporos Disease Active U nivers is is ity of [facility] Abnormal Abnormal Disease Active [facility] [place] rs EKG EKG ity of [facility] Asthma Asthma Disease Active [facility] of Medicin e History of History of Disease Active [facility] stroke stroke [facility] with with of residual residual Medici n left-sided left-sided e weakness weakness No known No known Disease [facility] active [facility] problems problems of Medicin e Allergies, Adverse Reactions, Alerts Allergy Allergy Status Severity Reaction(s) Onset Inactive Treating Comm ents Source Name Type Date Date Clinician NO KNOWN Allergy Active MOISES Tang ALLERGLALY Rossi [facility] NO KNOWN Drug Active Univers ALLERGIE Class ity of S [facility] Social History Social Habit Start Date Stop Date Quantity Comments Source History SDOH [facility] Alcohol Std Medical Cente r Drinks History SDOH [facility] Alcohol Binge Medical Marilyn ter History SDOH [facility] Alcohol Comment Medical C enter Exposure to 2022-07-02 2022-07-12 Not sure University SARS-CoV-2 00:00:00 14:22:00 [facility] (event) [place] Tobacco use and 2021-08-27 2021-08-27 Smokeless tobacco Un iversity of exposure 00:00:00 00:00:00 non-user [facility] Alcohol intake 2019-07-12 2019-07-[address] [facility] 00:00:00 00:00:00 non-drinker of Medical Ce nter alcohol (finding) History SDOH 2019-07-10 2019-07-10 1 MOISES Marte Alcohol Frequency 00:00:00 00:00:00 Medical Center Sex Ass[birth year] At [birth year] MOISES Christiansons 00:00:00 00:00:00 Medical Center Smoking Status Start Date Stop Date Source Never smoked tobacco [facility] Medications Ordered Filled Start Stop Current Ordering Indication Dosage Frequency Signature Comments Components Source Medication Medication Date Date Medication? Clinician (SIG) Name Name furosemide 2022-0 Yes [id number] 80mg Take 2 Univers 40 mg 5-16 tablets by ity of tablet 00:00: mouth [place] 00 every Medical morning Branch and evening. furosemide 2022-0 Yes [id number] 80mg Take 2 Univers 40 mg 5-16 tablets by ity of tablet 00:00: mouth [place] 00 every Medical morning Branch and evening. furosemide 2022-0 Yes [id number] 80mg Take 2 Univers 40 mg 5-16 tablets by ity of tablet 00:00: mouth [place] 00 every Medical morning Branch and evening. furosemide 3-0 Yes [id number] 80mg Take 2 Univers 40 mg 5-16 tablets by ity of tablet 00:00: mouth [place] 00 every Medical morning Branch and evening. furosemide 2023-0 Yes [id number] 80mg Take 2 Univers 40 mg 5-16 tablets by ity of tablet 00:00: mouth [place] 00 every Medical morning Branch and evening. furosemide 2023-0 Yes [id number] 80mg Take 2 Univers 40 mg 5-16 tablets by ity of tablet 00:00: mouth [place] 00 every Medical morning Branch and evening. furosemide 2023-0 Yes [id number] 80mg Take 2 Univers 40 mg 5-16 tablets by ity of tablet 00:00: mouth [place] 00 every Medical morning Branch and evening. furosemide 2023-0 Yes [id number] 80mg Take 2 Univers 40 mg 5-16 tablets by ity of tablet 00:00: mouth [place] 00 every Medical morning Branch and evening. furosemide 2023-0 Yes [id number] 80mg Take 2 Univers 40 mg 5-16 tablets by ity of tablet 00:00: mouth [place] 00 every Medical morning Branch and evening. furosemide 2023-0 Yes [id number] 80mg Take 2 Univers 40 mg 5-16 tablets by ity of tablet 00:00: mouth [place] 00 every Medical morning Branch and evening. furosemide 2022-0 Yes [id number] 80mg Take 2 Univers 40 mg 5-16 tablets by ity of tablet 00:00: mouth [place] 00 every Medical morning Branch and evening. furosemide 2022-0 Yes [id number] 80mg Take 2 Univers 40 mg 5-16 tablets by ity of tablet 00:00: mouth [place] 00 every Medical morning Branch and evening. furosemide 2022-0 Yes [id number] 80mg Take 2 Univers 40 mg 5-16 tablets by ity of tablet 00:00: mouth [place] 00 every Medical morning Branch and evening. regadenoson 2022- No [id number] .4mg 0.4 mg, IV Univers (LEXISCAN) 06-23 Push, ity of injection 17:00: 15:51 ONCE, 1 [place] 0.4 mg 00 :00 dose, On [facility] Branch 06/23/22 at 1200, Routine
food court team member approving Restricted medication : CECI LO tc 2022- No [id number] 43.8mCi 43.8 Unive rs 99m-tetrofo 06-23 [facility]ie [facility] 15:30: 15:19 , [place] ([facility]) 00 :00 Intravenou Medi angelica injection s, ONCE, 1 Bran ch 43.8 dose, On [facility] 06/23/22 at 1030, Routine tc 2022- No [id number] 16.5mCi 16.5 Unive rs 99m-tetrofo 06-23 millicurie i ty of smin 13:45: 13:45 , [place] ([facility]) 00 :00 Intravenou Medi angelica injection s, ONCE, 1 Bran ch 16.5 dose, On [facility] 06/23/22 at 0845, Routine furosemide 2022-0 Yes [id number] 80mg Take 2 Univers 40 mg 5-09 tablets by ity of tablet 00:00: mouth [place] 00 every Medical morning Branch and evening. furosemide 2022-0 Yes [id number] 80mg Take 2 Univers 40 mg 5-09 tablets by ity of tablet 00:00: mouth [place] 00 every Medical morning Branch and evening. furosemide 2023-0 Yes [id number] 80mg Take 2 Univers 40 mg 5-09 tablets by ity of tablet 00:00: mouth [place] 00 every Medical morning Branch and evening. furosemide 3-0 Yes [id number] 80mg Take 2 Univers 40 mg 5-09 tablets by ity of tablet 00:00: mouth [place] 00 every Medical morning Branch and evening. furosemide 3-0 Yes [id number] 80mg Take 2 Univers 40 mg 5-09 tablets by ity of tablet 00:00: mouth [place] 00 every Medical morning Branch and evening. furosemide 2022-0 Yes [id number] 80mg Take 2 Univers 40 mg 5-09 tablets by ity of tablet 00:00: mouth [place] 00 every Medical morning Branch and evening. furosemide 2022-0 2023- No [id number] 80mg Take 2 Univers 40 mg 5-09 05-16 tablets by ity of tablet 00:00: 00:00 mouth [place] 00 :00 every Medical morning Branch and evening. furosemide 2022-0 2023- No [id number] 80mg Take 2 Univers 40 mg 5-09 05-16 tablets by ity of tablet 00:00: 00:00 mouth [place] 00 :00 every Medical morning Branch and evening. atorvastati 2022-0 Yes [id number] 20mg Take 1 Univers n 20 mg 4-28 tablet by ity of tablet 00:00: mouth at [place] 00 bedtime. Medical Branch furosemide 2022-0 Yes [id number] 40mg Take 1 Univers 40 mg 4-28 tablet by ity of tablet 00:00: mouth [place] 00 every Medical morning Branch and evening. losartan 50 2022-0 Yes [id number] 25mg Take 0.5 Univers mg tablet 4-28 tablets by ity of 00:00: mouth [place] 00 every day Medical at 1200 Branch (noon). ipratropium 3-0 Yes [id number] .5mg Inhale 2.5 Univers 0.02 % 4-28 mL every 6 ity of nebulizer 00:00: (six) [place] solution 00 hours as Medical needed for Branch Wheezing or Shortness of Breath. albuterol 3-0 Yes [id number] 2.5mg Inhale 3 Univers 2.5 mg /3 4-28 mL every 8 ity of mL (0.083 00:00: (eight) [place] %) 00 hours as Medical nebulizer needed for Bran ch solution Wheezing or Shortness of Breath. atorvastati 2022-0 Yes [id number] 20mg Take 1 Univers n 20 mg 4-28 tablet by ity of tablet 00:00: mouth at [place] 00 bedtime. Medical Branch furosemide 2022-0 Yes [id number] 40mg Take 1 Univers 40 mg 4-28 tablet by ity of tablet 00:00: mouth [place] 00 every Medical morning Branch and evening. losartan 50 2022-0 Yes [id number] 25mg Take 0.5 Univers mg tablet 4-28 tablets by ity of 00:00: mouth [place] 00 every day Medical at 1200 Branch (noon). ipratropium 2022-0 Yes [id number] .5mg Inhale 2.5 Univers 0.02 % 4-28 mL every 6 ity of nebulizer 00:00: (six) [place] solution 00 hours as Medical needed for Branch Wheezing or Shortness of Breath. albuterol 2022-0 Yes [id number] 2.5mg Inhale 3 Univers 2.5 mg /3 4-28 mL every 8 ity of mL (0.083 00:00: (eight) [place] %) 00 hours as Medical nebulizer needed for Bran ch solution Wheezing or Shortness of Breath. atorvastati 2022-0 Yes [id number] 20mg Take 1 Univers n 20 mg 4-28 tablet by ity of tablet 00:00: mouth at [place] 00 bedtime. Medical Branch furosemide 2022-0 Yes [id number] 40mg Take 1 Univers 40 mg 4-28 tablet by ity of tablet 00:00: mouth [place] 00 every Medical morning Branch and evening. losartan 50 2022-0 Yes [id number] 25mg Take 0.5 Univers mg tablet 4-28 tablets by ity of 00:00: mouth [place] 00 every day Medical at 1200 Branch (noon). ipratropium 2022-0 Yes [id number] .5mg Inhale 2.5 Univers 0.02 % 4-28 mL every 6 ity of nebulizer 00:00: (six) [place] solution 00 hours as Medical needed for Branch Wheezing or Shortness of Breath. albuterol 2022-0 Yes [id number] 2.5mg Inhale 3 Univers 2.5 mg /3 4-28 mL every 8 ity of mL (0.083 00:00: (eight) [place] %) 00 hours as Medical nebulizer needed for Bran ch solution Wheezing or Shortness of Breath. atorvastati 2022-0 Yes [id number] 20mg Take 1 Univers n 20 mg 4-28 tablet by ity of tablet 00:00: mouth at [place] 00 bedtime. Medical Branch furosemide 2022-0 Yes [id number] 40mg Take 1 Univers 40 mg 4-28 tablet by ity of tablet 00:00: mouth [place] 00 every Medical morning Branch and evening. losartan 50 2022-0 Yes [id number] 25mg Take 0.5 Univers mg tablet 4-28 tablets by ity of 00:00: mouth [place] 00 every day Medical at 1200 Branch (noon). ipratropium 2022-0 Yes [id number] .5mg Inhale 2.5 Univers 0.02 % 4-28 mL every 6 ity of nebulizer 00:00: (six) [place] solution 00 hours as Medical needed for Branch Wheezing or Shortness of Breath. albuterol 2022-0 Yes [id number] 2.5mg Inhale 3 Univers 2.5 mg /3 4-28 mL every 8 ity of mL (0.083 00:00: (eight) [place] %) 00 hours as Medical nebulizer needed for Bran ch solution Wheezing or Shortness of Breath. atorvastati 2022-0 Yes [id number] 20mg Take 1 Univers n 20 mg 4-28 tablet by ity of tablet 00:00: mouth at [place] 00 bedtime. Medical Branch furosemide 2022-0 Yes [id number] 40mg Take 1 Univers 40 mg 4-28 tablet by ity of tablet 00:00: mouth [place] 00 every Medical morning Branch and evening. losartan 50 2022-0 Yes [id number] 25mg Take 0.5 Univers mg tablet 4-28 tablets by ity of 00:00: mouth [place] 00 every day Medical at 1200 Branch (noon). ipratropium 2022-0 Yes [id number] .5mg Inhale 2.5 Univers 0.02 % 4-28 mL every 6 ity of nebulizer 00:00: (six) [place] solution 00 hours as Medical needed for Branch Wheezing or Shortness of Breath. albuterol 2022-0 Yes [id number] 2.5mg Inhale 3 Univers 2.5 mg /3 4-28 mL every 8 ity of mL (0.083 00:00: (eight) [place] %) 00 hours as Medical nebulizer needed for Bran ch solution Wheezing or Shortness of Breath. atorvastati 2022-0 Yes [id number] 20mg Take 1 Univers n 20 mg 4-28 tablet by ity of tablet 00:00: mouth at [place] 00 bedtime. Medical Branch furosemide 2022-0 Yes [id number] 40mg Take 1 Univers 40 mg 4-28 tablet by ity of tablet 00:00: mouth [place] 00 every Medical morning Branch and evening. losartan 50 2022-0 Yes [id number] 25mg Take 0.5 Univers mg tablet 4-28 tablets by ity of 00:00: mouth [place] 00 every day Medical at 1200 Branch (noon). ipratropium 2022-0 Yes [id number] .5mg Inhale 2.5 Univers 0.02 % 4-28 mL every 6 ity of nebulizer 00:00: (six) [place] solution 00 hours as Medical needed for Branch Wheezing or Shortness of Breath. albuterol 2022-0 Yes [id number] 2.5mg Inhale 3 Univers 2.5 mg /3 4-28 mL every 8 ity of mL (0.083 00:00: (eight) [place] %) 00 hours as Medical nebulizer needed for Bran ch solution Wheezing or Shortness of Breath. atorvastati 2022-0 Yes [id number] 20mg Take 1 Univers n 20 mg 4-28 tablet by ity of tablet 00:00: mouth at [place] 00 bedtime. Medical Branch furosemide 2022-0 Yes [id number] 40mg Take 1 Univers 40 mg 4-28 tablet by ity of tablet 00:00: mouth [place] 00 every Medical morning Branch and evening. losartan 50 2022-0 Yes [id number] 25mg Take 0.5 Univers mg tablet 4-28 tablets by ity of 00:00: mouth [place] 00 every day Medical at 1200 Branch (noon). ipratropium 2022-0 Yes [id number] .5mg Inhale 2.5 Univers 0.02 % 4-28 mL every 6 ity of nebulizer 00:00: (six) [place] solution 00 hours as Medical needed for Branch Wheezing or Shortness of Breath. albuterol 2022-0 Yes [id number] 2.5mg Inhale 3 Univers 2.5 mg /3 4-28 mL every 8 ity of mL (0.083 00:00: (eight) [place] %) 00 hours as Medical nebulizer needed for Bran ch solution Wheezing or Shortness of Breath. atorvastati 2022-0 Yes [id number] 20mg Take 1 Univers n 20 mg 4-28 tablet by ity of tablet 00:00: mouth at [place] 00 bedtime. Medical Branch furosemide 2022-0 Yes [id number] 40mg Take 1 Univers 40 mg 4-28 tablet by ity of tablet 00:00: mouth [place] 00 every Medical morning Branch and evening. losartan 50 2022-0 Yes [id number] 25mg Take 0.5 Univers mg tablet 4-28 tablets by ity of 00:00: mouth [place] 00 every day Medical at 1200 Branch (noon). ipratropium 2022-0 Yes [id number] .5mg Inhale 2.5 Univers 0.02 % 4-28 mL every 6 ity of nebulizer 00:00: (six) [place] solution 00 hours as Medical needed for Branch Wheezing or Shortness of Breath. albuterol 2022-0 Yes [id number] 2.5mg Inhale 3 Univers 2.5 mg /3 4-28 mL every 8 ity of mL (0.083 00:00: (eight) [place] %) 00 hours as Medical nebulizer needed for Bran ch solution Wheezing or Shortness of Breath. atorvastati 2022-0 Yes [id number] 20mg Take 1 Univers n 20 mg 4-28 tablet by ity of tablet 00:00: mouth at [place] 00 bedtime. Medical Branch furosemide 2022-0 Yes [id number] 40mg Take 1 Univers 40 mg 4-28 tablet by ity of tablet 00:00: mouth [place] 00 every Medical morning Branch and evening. losartan 50 2022-0 Yes [id number] 25mg Take 0.5 Univers mg tablet 4-28 tablets by ity of 00:00: mouth [place] 00 every day Medical at 1200 Branch (noon). ipratropium 2022-0 Yes [id number] .5mg Inhale 2.5 Univers 0.02 % 4-28 mL every 6 ity of nebulizer 00:00: (six) [place] solution 00 hours as Medical needed for Branch Wheezing or Shortness of Breath. albuterol 2022-0 Yes [id number] 2.5mg Inhale 3 Univers 2.5 mg /3 4-28 mL every 8 ity of mL (0.083 00:00: (eight) [place] %) 00 hours as Medical nebulizer needed for Bran ch solution Wheezing or Shortness of Breath. atorvastati 2022-0 Yes [id number] 20mg Take 1 Univers n 20 mg 4-28 tablet by ity of tablet 00:00: mouth at [place] 00 bedtime. Medical Branch furosemide 2022-0 Yes [id number] 40mg Take 1 Univers 40 mg 4-28 tablet by ity of tablet 00:00: mouth [place] 00 every Medical morning Branch and evening. losartan 50 2022-0 Yes [id number] 25mg Take 0.5 Univers mg tablet 4-28 tablets by ity of 00:00: mouth [place] 00 every day Medical at 1200 Branch (noon). ipratropium 2022-0 Yes [id number] .5mg Inhale 2.5 Univers 0.02 % 4-28 mL every 6 ity of nebulizer 00:00: (six) [place] solution 00 hours as Medical needed for Branch Wheezing or Shortness of Breath. albuterol 2022-0 Yes [id number] 2.5mg Inhale 3 Univers 2.5 mg /3 4-28 mL every 8 ity of mL (0.083 00:00: (eight) [place] %) 00 hours as Medical nebulizer needed for Bran ch solution Wheezing or Shortness of Breath. atorvastati 2022-0 Yes [id number] 20mg Take 1 Univers n 20 mg 4-28 tablet by ity of tablet 00:00: mouth at [place] 00 bedtime. Medical Branch furosemide 2022-0 Yes [id number] 40mg Take 1 Univers 40 mg 4-28 tablet by ity of tablet 00:00: mouth [place] 00 every Medical morning Branch and evening. losartan 50 2022-0 Yes [id number] 25mg Take 0.5 Univers mg tablet 4-28 tablets by ity of 00:00: mouth [place] 00 every day Medical at 1200 Branch (noon). ipratropium 2022-0 Yes [id number] .5mg Inhale 2.5 Univers 0.02 % 4-28 mL every 6 ity of nebulizer 00:00: (six) [place] solution 00 hours as Medical needed for Branch Wheezing or Shortness of Breath. albuterol 2022-0 Yes [id number] 2.5mg Inhale 3 Univers 2.5 mg /3 4-28 mL every 8 ity of mL (0.083 00:00: (eight) [place] %) 00 hours as Medical nebulizer needed for Bran ch solution Wheezing or Shortness of Breath. atorvastati 2022-0 Yes [id number] 20mg Take 1 Univers n 20 mg 4-28 tablet by ity of tablet 00:00: mouth at [place] 00 bedtime. Medical Branch furosemide 2022-0 Yes [id number] 40mg Take 1 Univers 40 mg 4-28 tablet by ity of tablet 00:00: mouth [place] 00 every Medical morning Branch and evening. losartan 50 2022-0 Yes [id number] 25mg Take 0.5 Univers mg tablet 4-28 tablets by ity of 00:00: mouth [place] 00 every day Medical at 1200 Branch (noon). ipratropium 2022-0 Yes [id number] .5mg Inhale 2.5 Univers 0.02 % 4-28 mL every 6 ity of nebulizer 00:00: (six) [place] solution 00 hours as Medical needed for Branch Wheezing or Shortness of Breath. albuterol 2022-0 Yes [id number] 2.5mg Inhale 3 Univers 2.5 mg /3 4-28 mL every 8 ity of mL (0.083 00:00: (eight) [place] %) 00 hours as Medical nebulizer needed for Bran ch solution Wheezing or Shortness of Breath. atorvastati 2022-0 Yes [id number] 20mg Take 1 Univers n 20 mg 4-28 tablet by ity of tablet 00:00: mouth at [place] 00 bedtime. Medical Branch losartan 50 2022-0 Yes [id number] 25mg Take 0.5 Univers mg tablet 4-28 tablets by ity of 00:00: mouth [place] 00 every day Medical at 1200 Branch (noon). ipratropium 2022-0 Yes [id number] .5mg Inhale 2.5 Univers 0.02 % 4-28 mL every 6 ity of nebulizer 00:00: (six) [place] solution 00 hours as Medical needed for Branch Wheezing or Shortness of Breath. albuterol 2022-0 Yes [id number] 2.5mg Inhale 3 Univers 2.5 mg /3 4-28 mL every 8 ity of mL (0.083 00:00: (eight) [place] %) 00 hours as Medical nebulizer needed for Bran ch solution Wheezing or Shortness of Breath. atorvastati 2022-0 Yes [id number] 20mg Take 1 Univers n 20 mg 4-28 tablet by ity of tablet 00:00: mouth at [place] 00 bedtime. Medical Branch losartan 50 2022-0 Yes [id number] 25mg Take 0.5 Univers mg tablet 4-28 tablets by ity of 00:00: mouth [place] 00 every day Medical at 1200 Branch (noon). ipratropium 3-0 Yes [id number] .5mg Inhale 2.5 Univers 0.02 % 4-28 mL every 6 ity of nebulizer 00:00: (six) [place] solution 00 hours as Medical needed for Branch Wheezing or Shortness of Breath. albuterol 3-0 Yes [id number] 2.5mg Inhale 3 Univers 2.5 mg /3 4-28 mL every 8 ity of mL (0.083 00:00: (eight) [place] %) 00 hours as Medical nebulizer needed for Bran ch solution Wheezing or Shortness of Breath. atorvastati 2022-0 Yes [id number] 20mg Take 1 Univers n 20 mg 4-28 tablet by ity of tablet 00:00: mouth at [place] 00 bedtime. Medical Branch losartan 50 2022-0 Yes [id number] 25mg Take 0.5 Univers mg tablet 4-28 tablets by ity of 00:00: mouth [place] 00 every day Medical at 1200 Branch (noon). ipratropium 3-0 Yes [id number] .5mg Inhale 2.5 Univers 0.02 % 4-28 mL every 6 ity of nebulizer 00:00: (six) [place] solution 00 hours as Medical needed for Branch Wheezing or Shortness of Breath. albuterol 2023-0 Yes [id number] 2.5mg Inhale 3 Univers 2.5 mg /3 4-28 mL every 8 ity of mL (0.083 00:00: (eight) [place] %) 00 hours as Medical nebulizer needed for Bran ch solution Wheezing or Shortness of Breath. atorvastati 2022-0 Yes [id number] 20mg Take 1 Univers n 20 mg 4-28 tablet by ity of tablet 00:00: mouth at [place] 00 bedtime. Medical Branch losartan 50 2022-0 Yes [id number] 25mg Take 0.5 Univers mg tablet 4-28 tablets by ity of 00:00: mouth [place] 00 every day Medical at 1200 [place] (noon). ipratropium 3-0 Yes [id number] .5mg Inhale 2.5 Univers 0.02 % 4-28 mL every 6 ity of nebulizer 00:00: (six) [place] solution 00 hours as Medical needed for Branch Wheezing or Shortness of Breath. albuterol 3-0 Yes [id number] 2.5mg Inhale 3 Univers 2.5 mg /3 4-28 mL every 8 ity of mL (0.083 00:00: (eight) [place] %) 00 hours as Medical nebulizer needed for Bran ch solution Wheezing or Shortness of Breath. atorvastati 2022-0 Yes [id number] 20mg Take 1 Univers n 20 mg 4-28 tablet by ity of tablet 00:00: mouth at [place] 00 bedtime. Medical Branch losartan 50 2022-0 Yes [id number] 25mg Take 0.5 Univers mg tablet 4-28 tablets by ity of 00:00: mouth [place] 00 every day Medical at 1200 [place] (noon). ipratropium 3-0 Yes [id number] .5mg Inhale 2.5 Univers 0.02 % 4-28 mL every 6 [facility] of nebulizer 00:00: (six) [place] solution 00 hours as Medical needed for Branch Wheezing or Shortness of Breath. albuterol 3-0 Yes [id number] 2.5mg Inhale 3 [facility] 2.5 mg /3 4-28 mL every 8 [facility] of mL (0.083 00:00: (eight) [place] %) 00 hours as Medical nebulizer needed for [facility] ch solution Wheezing or Shortness of Breath. atorvastati 3-0 Yes [id number] 20mg Take 1 [facility] n 20 mg 4-28 tablet by it[facility] of tablet 00:00: mouth at [place] 00 bedtime. Medical Branch losartan 50 2022-0 Yes [id number] 25mg Take 0.5 [facility] mg tablet 4-28 tablets by ity of 00:00: mouth [place] 00 every day Medical at [address] (noon). ipratropium 2023-0 Yes [id number] .5mg Inhale 2.5 [facility] 0.02 % 4-28 mL every 6 [facility] of nebulizer 00:00: (six) [place] solution 00 hours as Medical needed for Branch Wheezing or Shortness of Breath. albuterol 3-0 Yes [id number] 2.5mg Inhale 3 [facility] 2.5 mg /3 4-28 mL every 8 [facility] of mL (0.083 00:00: (eight) [place] %) 00 hours as Medical nebulizer needed for [facility] ch solution Wheezing or Shortness of Breath. atorvastati 2022-0 Yes [id number] 20mg Take 1 [facility] n 20 mg 4-28 tablet by it[facility] of tablet 00:00: mouth at [place] 00 bedtime. Medical Branch losartan 50 2022-0 Yes [id number] 25mg Take 0.5 [facility] mg tablet 4-28 tablets by ity of 00:00: mouth [place] 00 every day Medical at [address] [facility] (noon). ipratropium 3-0 Yes [id number] .5mg Inhale 2.5 [facility] 0.02 % 4-28 mL every 6 ity of nebulizer 00:00: (six) [place] solution 00 hours as Medical needed for Branch Wheezing or Shortness of Breath. albuterol 2022-0 Yes [id number] 2.5mg Inhale 3 [facility] 2.5 mg /3 4-28 mL every 8 [facility]y of mL (0.083 00:00: (eight) [place] %) 00 hours as Medical nebulizer needed for [facility] ch solution Wheezing or Shortness of Breath. atorvastati 2022-0 Yes [id number] 20mg Take 1 [facility] n 20 mg 4-28 tablet by ity of tablet 00:00: mouth at [place] 00 bedtime. Medical Branch losartan 50 2022-0 Yes [id number] 25mg Take 0.5 [facility] mg tablet 4-28 tablets by ity of 00:00: mouth [place] 00 every day Medical at [address] [facility] (noon). ipratropium 2023-0 Yes [id number] .5mg Inhale 2.5 [facility] 0.02 % 4-28 mL every 6 it[facility] of nebulizer 00:00: (six) [place] solution 00 hours as Medical needed for Branch Wheezing or Shortness of Breath. albuterol 2023-0 Yes [id number] 2.5mg Inhale 3 [facility] 2.5 mg /3 4-28 mL every 8 ity of mL (0.083 00:00: (eight) [place] %) 00 hours as Medical nebulizer needed for Bran ch solution Wheezing or Shortness of Breath. atorvastati 3-0 Yes [id number] 20mg Take 1 [facility] n 20 mg 4-28 tablet by ity of tablet 00:00: mouth at [place] 00 bedtime. Medical Branch losartan 50 2022-0 Yes [id number] 25mg Take 0.5 [facility] mg tablet 4-28 tablets by ity of 00:00: mouth [place] 00 every day Medical at [address] [place] (noon). ipratropium 2023-0 Yes [id number] .5mg Inhale 2.5 [facility] 0.02 % 4-28 mL every 6 ity of nebulizer 00:00: (six) [place] solution 00 hours as Medical needed for Branch Wheezing or Shortness of Breath. albuterol 2023-0 Yes [id number] 2.5mg Inhale 3 [facility] 2.5 mg /3 4-28 mL every 8 ity of mL (0.083 00:00: (eight) [place] %) 00 hours as Medical nebulizer needed for Bran ch solution Wheezing or Shortness of Breath. atorvastati 2022-0 Yes [id number] 20mg Take 1 [facility] n 20 mg 4-28 tablet by ity of tablet 00:00: mouth at [place] 00 bedtime. Medical Branch losartan 50 2022-0 Yes [id number] 25mg Take 0.5 [facility] mg tablet 4-28 tablets by ity of 00:00: mouth [place] 00 every day Medical at [address] [place] (noon). ipratropium 2023-0 Yes [id number] .5mg Inhale 2.5 [facility] 0.02 % 4-28 mL every 6 ity of nebulizer 00:00: (six) [place] solution 00 hours as Medical needed for Branch Wheezing or Shortness of Breath. albuterol 2023-0 Yes [id number] 2.5mg Inhale 3 [facility] 2.5 mg /3 4-28 mL every 8 ity of mL (0.083 00:00: (eight) [place] %) 00 hours as Medical nebulizer needed for Bran ch solution Wheezing or Shortness of Breath. atorvastati 3-0 Yes [id number] 20mg Take 1 [facility] n 20 mg 4-28 tablet by ity of tablet 00:00: mouth at [place] 00 bedtime. Medical Branch losartan 50 2022-0 Yes [id number] 25mg Take 0.5 [facility] mg tablet 4-28 tablets by ity of 00:00: mouth [place] 00 every day Medical at [address] [place] (noon). ipratropium 2023-0 Yes [id number] .5mg Inhale 2.5 [facility] 0.02 % 4-28 mL every 6 ity of nebulizer 00:00: (six) [place] solution 00 hours as Medical needed for Branch Wheezing or Shortness of Breath. albuterol 2023-0 Yes [id number] 2.5mg Inhale 3 [facility] 2.5 mg /3 4-28 mL every 8 it[facility] of mL (0.083 00:00: (eight) [place] %) 00 hours as Medical nebulizer needed for Bran ch solution Wheezing or Shortness of Breath. atorvastati 2022-0 Yes [id number] 20mg Take 1 [facility] n 20 mg 4-28 tablet by ity of tablet 00:00: mouth at [place] 00 bedtime. Medical Branch losartan 50 2022-0 Yes [id number] 25mg Take 0.5 [facility] mg tablet 4-28 tablets by ity of 00:00: mouth [place] 00 every day Medical at [address] [place] (noon). ipratropium 2023-0 Yes [id number] .5mg Inhale 2.5 [facility] 0.02 % 4-28 mL every 6 it[facility] of nebulizer 00:00: (six) [place] solution 00 hours as Medical needed for Branch Wheezing or Shortness of Breath. albuterol 3-0 Yes [id number] 2.5mg Inhale 3 [facility] 2.5 mg /3 4-28 mL every 8 [facility] of mL (0.083 00:00: (eight) [place] %) 00 hours as Medical nebulizer needed for Bran ch solution Wheezing or Shortness of Breath. atorvastati 2023-0 Yes [id number] 20mg Take 1 [facility] n 20 mg 4-28 tablet by it[facility] of tablet 00:00: mouth at [place] 00 bedtime. Medical Branch losartan 50 2022-0 Yes [id number] 25mg Take 0.5 [facility] mg tablet 4-28 tablets by it[facility] of 00:00: mouth [place] 00 every day Medical at [address] [place] (noon). ipratropium 2023-0 Yes [id number] .5mg Inhale 2.5 [facility] 0.02 % 4-28 mL every 6 it[facility] of nebulizer 00:00: (six) [place] solution 00 hours as Medical needed for Branch Wheezing or Shortness of Breath. albuterol 2022-0 Yes [id number] 2.5mg Inhale 3 [facility] 2.5 mg /3 4-28 mL every 8 it[facility] of mL (0.083 00:00: (eight) [place] %) 00 hours as Medical nebulizer needed for Bran ch solution Wheezing or Shortness of Breath. atorvastati 2022-0 Yes [id number] 20mg Take 1 [facility] n 20 mg 4-28 tablet by it[facility] of tablet 00:00: mouth at [place] 00 bedtime. Medical Branch losartan 50 2022-0 Yes [id number] 25mg Take 0.5 [facility] mg tablet 4-28 tablets by ity of 00:00: mouth [place] 00 every day Medical at [address] [facility] (noon). ipratropium 3-0 Yes [id number] .5mg Inhale 2.5 [facility] 0.02 % 4-28 mL every 6 ity of nebulizer 00:00: (six) [place] solution 00 hours as Medical needed for Branch Wheezing or Shortness of Breath. albuterol 2022-0 Yes [id number] 2.5mg Inhale 3 [facility] 2.5 mg /3 4-28 mL every 8 [facility] of mL (0.083 00:00: (eight) [place] %) 00 hours as Medical nebulizer needed for Bran ch solution Wheezing or Shortness of Breath. atorvastati 2022-0 Yes [id number] 20mg Take 1 [facility] n 20 mg 4-28 tablet by ity of tablet 00:00: mouth at [place] 00 bedtime. Medical Branch losartan 50 2022-0 Yes [id number] 25mg Take 0.5 [facility] mg tablet 4-28 tablets by ity of 00:00: mouth [place] 00 every day Medical at [address] [facility] (noon). ipratropium 2023-0 Yes [id number] .5mg Inhale 2.5 [facility] 0.02 % 4-28 mL every 6 it[facility] of nebulizer 00:00: (six) [place] solution 00 hours as Medical needed for Branch Wheezing or Shortness of Breath. albuterol 3-0 Yes [id number] 2.5mg Inhale 3 [facility] 2.5 mg /3 4-28 mL every 8 it[facility] of mL (0.083 00:00: (eight) [place] %) 00 hours as Medical nebulizer needed for [facility] ch solution Wheezing or Shortness of Breath. atorvastati 2022-0 Yes [id number] 20mg Take 1 [facility] n 20 mg 4-28 tablet by ity of tablet 00:00: mouth at [place] 00 bedtime. Medical Branch losartan 50 2022-0 Yes [id number] 25mg Take 0.5 [facility] mg tablet 4-28 tablets by ity of 00:00: mouth [place] 00 every day Medical at [address] [place] (noon). ipratropium 2022-0 Yes [id number] .5mg Inhale 2.5 [facility] 0.02 % 4-28 mL every 6 it[facility] of nebulizer 00:00: (six) [place] solution 00 hours as Medical needed for Branch Wheezing or Shortness of Breath. albuterol 2022-0 Yes [id number] 2.5mg Inhale 3 [facility] 2.5 mg /3 4-28 mL every 8 it[facility] of mL (0.083 00:00: (eight) [place] %) 00 hours as Medical nebulizer needed for Bran ch solution Wheezing or Shortness of Breath. atorvastati 2022-0 Yes [id number] 20mg Take 1 [facility] n 20 mg 4-28 tablet by ity of tablet 00:00: mouth at [place] 00 bedtime. Medical Branch losartan 50 2022-0 Yes [id number] 25mg Take 0.5 [facility] mg tablet 4-28 tablets by ity of 00:00: mouth [place] 00 every day Medical at [address] (noon). ipratropium 2022-0 Yes [id number] .5mg Inhale 2.5 [facility] 0.02 % 4-28 mL every 6 it[facility] of nebulizer 00:00: (six) [place] solution 00 hours as Medical needed for Branch Wheezing or Shortness of Breath. albuterol 3-0 Yes [id number] 2.5mg Inhale 3 [facility] 2.5 mg /3 4-28 mL every 8 it[facility] of mL (0.083 00:00: (eight) [place] %) 00 hours as Medical nebulizer needed for Bran ch solution Wheezing or Shortness of Breath. atorvastati 2022-0 Yes [id number] 20mg Take 1 [facility] n 20 mg 4-28 tablet by ity of tablet 00:00: mouth at [place] 00 bedtime. Medical Branch losartan 50 2022-0 Yes [id number] 25mg Take 0.5 [facility] mg tablet 4-28 tablets by ity of 00:00: mouth [place] 00 every day Medical at [address] (noon). ipratropium 3-0 Yes [id number] .5mg Inhale 2.5 [facility] 0.02 % 4-28 mL every 6 ity of nebulizer 00:00: (six) [place] solution 00 hours as Medical needed for Branch Wheezing or Shortness of Breath. albuterol 2022-0 Yes [id number] 2.5mg Inhale 3 [facility] 2.5 mg /3 4-28 mL every 8 ity of mL (0.083 00:00: (eight) [place] %) 00 hours as Medical nebulizer needed for Bran ch solution Wheezing or Shortness of Breath. atorvastati 2022-0 Yes [id number] 20mg Take 1 [facility] n 20 mg 4-28 tablet by ity of tablet 00:00: mouth at [place] 00 bedtime. Medical Branch losartan 50 2022-0 Yes [id number] 25mg Take 0.5 [facility] mg tablet 4-28 tablets by ity of 00:00: mouth [place] 00 every day Medical at [address] (noon). ipratropium 3-0 Yes [id number] .5mg Inhale 2.5 [facility] 0.02 % 4-28 mL every 6 ity of nebulizer 00:00: (six) [place] solution 00 hours as Medical needed for Branch Wheezing or Shortness of Breath. albuterol 2022-0 Yes [id number] 2.5mg Inhale 3 [facility] 2.5 mg /3 4-28 mL every 8 ity of mL (0.083 00:00: (eight) [place] %) 00 hours as Medical nebulizer needed for Bran ch solution Wheezing or Shortness of Breath. atorvastati 2022-0 Yes [id number] 20mg Take 1 [facility] n 20 mg 4-28 tablet by ity of tablet 00:00: mouth at [place] 00 bedtime. Medical Branch losartan 50 2022-0 Yes [id number] 25mg Take 0.5 [facility] mg tablet 4-28 tablets by ity of 00:00: mouth [place] 00 every day Medical at [address] [facility] (noon). ipratropium 2023-0 Yes [id number] .5mg Inhale 2.5 [facility] 0.02 % 4-28 mL every 6 ity of nebulizer 00:00: (six) [place] solution 00 hours as Medical needed for Branch Wheezing or Shortness of Breath. albuterol 2023-0 Yes [id number] 2.5mg Inhale 3 [facility] 2.5 mg /3 4-28 mL every 8 ity of mL (0.083 00:00: (eight) [place] %) 00 hours as Medical nebulizer needed for Bran ch solution Wheezing or Shortness of Breath. furosemide 2023-0 2023- No [id number] 40mg Take 1 [facility] 40 mg 4-28 [...] every day Medical at [address] (noon). losartan 50 2023-0 Yes 25mg Take 0.5 [facility] mg tablet 4-12 tablets by ity of 00:00: mouth [place] 00 every day Medical at [address] (noon). losartan 50 2023-0 Yes 25mg Take 0.5 [facility] mg tablet 4-12 tablets by ity of 00:00: mouth [place] 00 every day Medical at [address] [place] [address] (noon). losartan 50 2023-0 Yes 25mg Take 0.5 [facility] mg tablet 4-12 tablets by ity of 00:00: mouth [place] 00 every day Medical at [address] [place] [address] (noon). losartan 50 2023-0 Yes 25mg Take 0.5 [facility] mg tablet 4-12 tablets by ity of 00:00: mouth [place] 00 every day Medical at [address] [place] [address] (noon). losartan 50 2023-0 Yes 25mg Take 0.5 [facility] mg tablet 4-12 tablets by ity of 00:00: mouth [place] 00 every day Medical at [address] [place] [address] (noon). losartan 50 2023-0 Yes 25mg Take 0.5 [facility] mg tablet 4-12 tablets by ity of 00:00: mouth [place] 00 every day Medical at [address] [place] [address] (noon). losartan 50 2023-0 Yes 25mg Take 0.5 [facility] mg tablet 4-12 tablets by ity of 00:00: mouth [place] 00 every day Medical at [address] [place] [address] (noon). losartan 50 2023-0 Yes 25mg Take 0.5 [facility] mg tablet 4-12 tablets by ity of 00:00: mouth [place] 00 every day Medical at [address] [place] [address] (noon). losartan 50 2023-0 Yes 25mg Take 0.5 [facility] mg tablet 4-12 tablets by ity of 00:00: mouth [place] 00 every day Medical at [address] [place] [address] (noon). losartan 50 2023-0 2023- No 25mg Take 0.5 [facility] n[facility] mg tablet 4-12 -28 tablets by ity of 00:00: 00:00 mouth [place] 00 :00 every day Medical at [address] [place] [address] (noon). losartan 50 2023-0 2023- No 25mg Take 0.5 [facility] nivers mg tablet 4-12 -28 tablets by ity of 00:00: 00:00 mouth [place] 00 :00 every day Medical at [address] [place] [address] (noon). losartan 50 2023-0 2023- No 25mg Take 0.5 [facility] nivers mg tablet 4-12 -28 tablets by ity of 00:00: 00:00 mouth [place] 00 :00 every day Medical at [address] [place] [address] (noon). losartan 50 2022-0 2022- No 50mg Take 1 [facility] vers mg tablet 4-12 -12 tablet by ity of 00:00: 00:00 mouth [place] 00 :00 daily. Medical Branch losartan 50 3-0 3- No 25mg Take 0.5 [facility] nivers mg tablet 4-12 -12 tablets by ity of 00:00: 00:00 mouth [place] 00 :00 daily. Medical Branch losartan 50 2022-0 2023- No 50mg Take 1 [facility] vers mg tablet 4-12 tablet by ity of 00:00: 00:00 mouth [place] 00 :00 daily. [facility] Branch losartan 50 2022-0 3- No 25mg Take 0.5 U nivers mg tablet 4-01 16-12 tablets by ity of 00:00: 00:00 mouth [place] 00 :00 daily. Medical Branch furosemide 2022-0 Yes [id number] 40mg Take 1 [facility] 40 mg 4-04 tablet by ity of tablet 00:00: mouth [place] 00 daily. Medical Branch terbinafine 2022-0 Yes [id number] 250mg Take 1 [facility] HCL 250 mg 4-04 tablet by ity of tablet 00:00: mouth [place] 00 daily. Medical Branch benzonatate 2022-0 Yes [id number] 200mg Take 1 [facility] 200 mg 4-04 capsule by ity of capsule 00:00: mouth 3 [place] 00 (three) Medical times [place] daily as needed for Cough. furosemide 2022-0 Yes [id number] 40mg Take 1 [facility] 40 mg 4-04 tablet by ity of tablet 00:00: mouth [place] 00 daily. Medical Branch terbinafine 2022-0 Yes [id number] 250mg Take 1 [facility] HCL 250 mg 4-04 tablet by ity of tablet 00:00: mouth [place] 00 daily. [facility] Branch benzonatate 2022-0 Yes [id number] 200mg Take 1 [facility] 200 mg 4-04 capsule by ity of capsule 00:00: mouth 3 [place] 00 (three) Medical times [place] daily as needed for Cough. furosemide 2022-0 Yes [id number] 40mg Take 1 [facility] 40 mg 4-04 tablet by ity of tablet 00:00: mouth [place] 00 daily. [facility] Branch terbinafine 2022-0 Yes [id number] 250mg Take 1 [facility] HCL 250 mg 4-04 tablet by ity of tablet 00:00: mouth [place] 00 daily. Medical Branch benzonatate 2022-0 Yes [id number] 200mg Take 1 [facility] 200 mg 4-04 capsule by ity of capsule 00:00: mouth 3 (three) Medical times Branch daily as needed for Cough. furosemide 2022-0 Yes [id number] 40mg Take 1 [facility] 40 mg 4-04 tablet by ity of tablet 00:00: mouth [place] 00 daily. Medical Branch terbinafine 2022-0 Yes [id number] 250mg Take 1 [facility] HCL 250 mg 4-04 tablet by ity of tablet 00:00: mouth [place] 00 daily. Medical Branch benzonatate 2022-0 Yes [id number] 200mg Take 1 [facility] 200 mg 4-04 capsule by ity of capsule 00:00: mouth 3 (three) Medical times Branch daily as needed for Cough. furosemide 2022-0 Yes [id number] 40mg Take 1 [facility] 40 mg 4-04 tablet by ity of tablet 00:00: mouth [place] 00 daily. Medical Branch terbinafine 2022-0 Yes [id number] 250mg Take 1 [facility] HCL 250 mg 4-04 tablet by ity of tablet 00:00: mouth [place] 00 daily. Medical Branch benzonatate 2022-0 Yes [id number] 200mg Take 1 [facility] 200 mg 4-04 capsule by ity of capsule 00:00: mouth 3 (three) Medical times Branch daily as needed for Cough. furosemide 2022-0 Yes [id number] 40mg Take 1 [facility] 40 mg 4-04 tablet by ity of tablet 00:00: mouth [place] 00 daily. Medical Branch terbinafine 2022-0 Yes [id number] 250mg Take 1 [facility] HCL 250 mg 4-04 tablet by ity of tablet 00:00: mouth [place] 00 daily. Medical Branch benzonatate 2022-0 Yes [id number] 200mg Take 1 [facility] 200 mg 4-04 capsule by ity of capsule 00:00: mouth 3 (three) Medical times Branch daily as needed for Cough. furosemide 2022-0 Yes [id number] 40mg Take 1 [facility] 40 mg 4-04 tablet by ity of tablet 00:00: mouth [place] 00 daily. Medical Branch terbinafine 2022-0 Yes [id number] 250mg Take 1 [facility] HCL 250 mg 4-04 tablet by ity of tablet 00:00: mouth [place] 00 daily. Medical Branch benzonatate 2022-0 Yes [id number] 200mg Take 1 [facility] 200 mg 4-04 capsule by ity of capsule 00:00: mouth 3 (three) Medical times Branch daily as needed for Cough. furosemide 2022-0 Yes [id number] 40mg Take 1 [facility] 40 mg 4-04 tablet by ity of tablet 00:00: mouth [place] 00 daily. Medical Branch terbinafine 2022-0 Yes [id number] 250mg Take 1 [facility] HCL 250 mg 4-04 tablet by ity of tablet 00:00: mouth [place] 00 daily. Medical Branch benzonatate 2022-0 Yes [id number] 200mg Take 1 [facility] 200 mg 4-04 capsule by ity of capsule 00:00: mouth 3 (three) Medical times Branch daily as needed for Cough. furosemide 2022-0 Yes [id number] 40mg Take 1 [facility] 40 mg 4-04 tablet by ity of tablet 00:00: mouth [place] 00 daily. Medical Branch terbinafine 2022-0 Yes [id number] 250mg Take 1 [facility] HCL 250 mg 4-04 tablet by ity of tablet 00:00: mouth [place] 00 daily. Medical Branch benzonatate 2022-0 Yes [id number] 200mg Take 1 [facility] 200 mg 4-04 capsule by ity of capsule 00:00: mouth 3 (three) Medical times [place] daily as needed for Cough. furosemide 2022-0 Yes [id number] 40mg Take 1 [facility] 40 mg 4-04 tablet by ity of tablet 00:00: mouth [place] 00 daily. Medical Branch terbinafine 2022-0 Yes [id number] 250mg Take 1 [facility] HCL 250 mg 4-04 tablet by ity of tablet 00:00: mouth [place] 00 daily. Medical Branch benzonatate 2022-0 Yes [id number] 200mg Take 1 [facility] 200 mg 4-04 capsule by ity of capsule 00:00: mouth 3 (three) Medical times Branch daily as needed for Cough. terbinafine 2022-0 Yes [id number] 250mg Take 1 [facility] HCL 250 mg 4-04 tablet by ity of tablet 00:00: mouth [place] 00 daily. Medical Branch benzonatate 2022-0 Yes [id number] 200mg Take 1 [facility] 200 mg 4-04 capsule by ity of capsule 00:00: mouth 3 (three) Medical times Branch daily as needed for Cough. terbinafine 2023-0 Yes [id number] 250mg Take 1 [facility] HCL 250 mg 4-04 tablet by ity of tablet 00:00: mouth [place] 00 daily. Medical Branch benzonatate 3-0 Yes [id number] 200mg Take 1 [facility] 200 mg 4-04 capsule by ity of capsule 00:00: mouth 3 (three) Medical times Branch daily as needed for Cough. terbinafine 2023-0 Yes [id number] 250mg Take 1 [facility] HCL 250 mg 4-04 tablet by ity of tablet 00:00: mouth [place] 00 daily. Medical Branch benzonatate 3-0 Yes [id number] 200mg Take 1 [facility] 200 mg 4-04 capsule by ity of capsule 00:00: mouth (three) Medical times Branch daily as needed for Cough. terbinafine 3-0 Yes [id number] 250mg Take 1 [facility] HCL 250 mg 4-04 tablet by ity of tablet 00:00: mouth 00 daily. Medical Branch benzonatate 3-0 Yes [id number] 200mg Take 1 [facility] 200 mg 4-04 capsule by ity of capsule 00:00: mouth (three) Medical times Branch daily as needed for Cough. terbinafine 3-0 Yes [id number] 250mg Take 1 [facility] HCL 250 mg 4-04 tablet by ity of tablet 00:00: mouth [place] 00 daily. Medical Branch benzonatate 3-0 Yes [id number] 200mg Take 1 [facility] 200 mg 4-04 capsule by ity of capsule 00:00: mouth (three) Medical times Branch daily as needed for Cough. terbinafine 2023-0 Yes [id number] 250mg Take 1 [facility] HCL 250 mg 4-04 tablet by ity of tablet 00:00: mouth [place] 00 daily. Medical Branch benzonatate 2023-0 Yes [id number] 200mg Take 1 [facility] 200 mg 4-04 capsule by ity of capsule 00:00: mouth 3 (three) Medical times Branch daily as needed for Cough. terbinafine 2023-0 Yes [id number] 250mg Take 1 [facility] HCL 250 mg 4-04 tablet by ity of tablet 00:00: mouth [place] 00 daily. Medical Branch benzonatate 3-0 Yes [id number] 200mg Take 1 [facility] 200 mg 4-04 capsule by ity of capsule 00:00: mouth 3 (three) Medical times Branch daily as needed for Cough. terbinafine 3-0 Yes [id number] 250mg Take 1 [facility] HCL 250 mg 4-04 tablet by ity of tablet 00:00: mouth [place] 00 daily. Medical Branch benzonatate 3-0 Yes [id number] 200mg Take 1 [facility] 200 mg 4-04 capsule by ity of capsule 00:00: mouth 3 (three) Medical times Branch daily as needed for Cough. terbinafine 3-0 Yes [id number] 250mg Take 1 [facility] HCL 250 mg 4-04 tablet by ity of tablet 00:00: mouth 00 daily. Medical Branch benzonatate 2022-0 Yes [id number] 200mg Take 1 [facility] 200 mg 4-04 capsule by ity of capsule 00:00: mouth (three) Medical times Branch daily as needed for Cough. terbinafine 3-0 Yes [id number] 250mg Take 1 [facility] HCL 250 mg 4-04 tablet by ity of tablet 00:00: mouth 00 daily. Medical Branch benzonatate 3-0 Yes [id number] 200mg Take 1 [facility] 200 mg 4-04 capsule by ity of capsule 00:00: mouth (three) Medical times Branch daily as needed for Cough. terbinafine 3-0 Yes [id number] 250mg Take 1 [facility] HCL 250 mg 4-04 tablet by ity of tablet 00:00: mouth 00 daily. Medical Branch benzonatate 3-0 Yes [id number] 200mg Take 1 [facility] 200 mg 4-04 capsule by ity of capsule 00:00: mouth (three) Medical times Branch daily as needed for Cough. terbinafine 2023-0 Yes [id number] 250mg Take 1 [facility] HCL 250 mg 4-04 tablet by ity of tablet 00:00: mouth [place] 00 daily. Medical Branch benzonatate 2023-0 Yes [id number] 200mg Take 1 [facility] 200 mg 4-04 capsule by ity of capsule 00:00: mouth 3 (three) Medical times Branch daily as needed for Cough. terbinafine 2023-0 Yes [id number] 250mg Take 1 [facility] HCL 250 mg 4-04 tablet by ity of tablet 00:00: mouth [place] 00 daily. Medical Branch benzonatate 3-0 Yes [id number] 200mg Take 1 [facility] 200 mg 4-04 capsule by ity of capsule 00:00: mouth 3 (three) Medical times Branch daily as needed for Cough. terbinafine 2023-0 Yes [id number] 250mg Take 1 [facility] HCL 250 mg 4-04 tablet by ity of tablet 00:00: mouth 00 daily. Medical Branch benzonatate 3-0 Yes [id number] 200mg Take 1 [facility] 200 mg 4-04 capsule by ity of capsule 00:00: mouth (three) Medical times Branch daily as needed for Cough. terbinafine 2022-0 Yes [id number] 250mg Take 1 [facility] HCL 250 mg 4-04 tablet by ity of tablet 00:00: mouth 00 daily. Medical Branch benzonatate 3-0 Yes [id number] 200mg Take 1 [facility] 200 mg 4-04 capsule by ity of capsule 00:00: mouth (three) Medical times Branch daily as needed for Cough. terbinafine 2022-0 Yes [id number] 250mg Take 1 [facility] HCL 250 mg 4-04 tablet by ity of tablet 00:00: mouth 00 daily. Medical Branch benzonatate 3-0 Yes [id number] 200mg Take 1 [facility] 200 mg 4-04 capsule by ity of capsule 00:00: mouth (three) Medical times Branch daily as needed for Cough. terbinafine 3-0 Yes [id number] 250mg Take 1 [facility] HCL 250 mg 4-04 tablet by ity of tablet 00:00: mouth [place] 00 daily. Medical Branch benzonatate 3-0 Yes [id number] 200mg Take 1 [facility] 200 mg 4-04 capsule by ity of capsule 00:00: mouth (three) Medical times Branch daily as needed for Cough. terbinafine 2023-0 Yes [id number] 250mg Take 1 [facility] HCL 250 mg 4-04 tablet by ity of tablet 00:00: mouth [place] 00 daily. Medical Branch benzonatate 3-0 Yes [id number] 200mg Take 1 [facility] 200 mg 4-04 capsule by ity of capsule 00:00: mouth 3 (three) Medical times Branch daily as needed for Cough. terbinafine 2023-0 Yes [id number] 250mg Take 1 [facility] HCL 250 mg 4-04 tablet by ity of tablet 00:00: mouth 00 daily. Medical Branch benzonatate 2023-0 Yes [id number] 200mg Take 1 [facility] 200 mg 4-04 capsule by ity of capsule 00:00: mouth (three) Medical times Branch daily as needed for Cough. terbinafine 2023-0 Yes [id number] 250mg Take 1 [facility] HCL 250 mg 4-04 tablet by ity of tablet 00:00: mouth 00 daily. Medical Branch benzonatate 3-0 Yes [id number] 200mg Take 1 [facility] 200 mg 4-04 capsule by ity of capsule 00:00: mouth (three) Medical times Branch daily as needed for Cough. terbinafine 2023-0 Yes [id number] 250mg Take 1 [facility] HCL 250 mg 4-04 tablet by ity of tablet 00:00: mouth 00 daily. Medical Branch benzonatate 3-0 Yes [id number] 200mg Take 1 [facility] 200 mg 4-04 capsule by ity of capsule 00:00: mouth (three) Medical times Branch daily as needed for Cough. terbinafine 2023-0 Yes [id number] 250mg Take 1 [facility] HCL 250 mg 4-04 tablet by [facility] tablet 00:00: mouth 00 daily. [facility] benzonatate 3-0 Yes [id number] 200mg Take 1 [facility] 200 mg 4-04 capsule by [facility] capsule 00:00: mouth (three) Medical times Branch daily as needed for Cough. terbinafine 2023-0 Yes [id number] 250mg Take 1 [facility] HCL 250 mg 4-04 tablet by [facility] tablet 00:00: mouth 00 daily. [facility] benzonatate 2023-0 Yes [id number] 200mg Take 1 [facility] 200 mg 4-04 capsule by [facility] capsule 00:00: mouth (three) Medical times Branch daily as needed for Cough. terbinafine 2023-0 Yes [id number] 250mg Take 1 [facility] HCL 250 mg 4-04 tablet by [facility] tablet 00:00: mouth [place] 00 daily. [facility] benzonatate 2023-0 Yes [id number] 200mg Take 1 [facility] 200 mg 4-04 capsule by [facility] capsule 00:00: mouth 3 (three) Medical times Branch daily as needed for Cough. terbinafine 3-0 Yes [id number] 250mg Take 1 [facility] HCL 250 mg 4-04 tablet by [facility] tablet 00:00: mouth [place] 00 daily. [facility] benzonatate 3-0 Yes [id number] 200mg Take 1 [facility] 200 mg 4-04 capsule by [facility] capsule 00:00: mouth 3 (three) Medical times Branch daily as needed for Cough. terbinafine 3-0 Yes [id number] 250mg Take 1 [facility] HCL 250 mg 4-04 tablet by [facility] tablet 00:00: mouth 00 daily. [facility] benzonatate 3-0 Yes [id number] 200mg Take 1 [facility] 200 mg 4-04 capsule by [facility] capsule 00:00: mouth (three) Medical times Branch daily as needed for Cough. terbinafine 2022-0 Yes [id number] 250mg Take 1 [facility] HCL 250 mg 4-04 tablet by [facility] tablet 00:00: mouth 00 daily. [facility] benzonatate 3-0 Yes [id number] 200mg Take 1 [facility] 200 mg 4-04 capsule by [facility] capsule 00:00: mouth (three) Medical times Branch daily as needed for Cough. terbinafine 3-0 Yes [id number] 250mg Take 1 [facility] HCL 250 mg 4-04 tablet by [facility] tablet 00:00: mouth 00 daily. [facility] benzonatate 3-0 Yes [id number] 200mg Take 1 [facility] 200 mg 4-04 capsule by [facility] capsule 00:00: mouth (three) Medical times Branch daily as needed for Cough. terbinafine 3-0 Yes [id number] 250mg Take 1 [facility] HCL 250 mg 4-04 tablet by [facility] tablet 00:00: mouth [place] 00 daily. [facility] benzonatate 2023-0 Yes [id number] 200mg Take 1 [facility] 200 mg 4-04 capsule by [facility] capsule 00:00: mouth 3 (three) Medical times Branch daily as needed for Cough. terbinafine 2023-0 Yes [id number] 250mg Take 1 [facility] HCL 250 mg 4-04 tablet by [facility] tablet 00:00: mouth [place] 00 daily. [facility] benzonatate 3-0 Yes [id number] 200mg Take 1 [facility] 200 mg 4-04 capsule by [facility] capsule 00:00: mouth 3 (three) Medical times Branch daily as needed for Cough. terbinafine 3-0 Yes [id number] 250mg Take 1 [facility] HCL 250 mg 4-04 tablet by [facility] tablet 00:00: mouth [place] 00 daily. [facility] benzonatate 3-0 Yes [id number] 200mg Take 1 [facility] 200 mg 4-04 capsule by [facility] capsule 00:00: mouth 3 (three) Medical times Branch daily as needed for Cough. terbinafine 2022-0 Yes [id number] 250mg Take 1 [facility] HCL 250 mg 4-04 tablet by [facility] tablet 00:00: mouth 00 daily. [facility] benzonatate 2022-0 Yes [id number] 200mg Take 1 [facility] 200 mg 4-04 capsule by [facility] capsule 00:00: mouth (three) Medical times Branch daily as needed for Cough. terbinafine 2022-0 Yes [id number] 250mg Take 1 [facility] HCL 250 mg 4-04 tablet by [facility] tablet 00:00: mouth 00 daily. [facility] benzonatate 3-0 Yes [id number] 200mg Take 1 [facility] 200 mg 4-04 capsule by [facility] capsule 00:00: mouth (three) Medical times Branch daily as needed for Cough. terbinafine 3-0 Yes [id number] 250mg Take 1 [facility] HCL 250 mg 4-04 tablet by [facility] tablet 00:00: mouth [place] 00 daily. [facility] benzonatate 3-0 Yes [id number] 200mg Take 1 [facility] 200 mg 4-04 capsule by [facility] capsule 00:00: mouth 3 (three) Medical times Branch daily as needed for Cough. terbinafine 2023-0 Yes [id number] 250mg Take 1 [facility] HCL 250 mg 4-04 tablet by [facility] tablet 00:00: mouth [place] 00 daily. Medical [facility] benzonatate 3-0 Yes [id number] 200mg Take 1 [facility] 200 mg 4-04 capsule by [facility] capsule 00:00: mouth 3 [place] 00 (three) Medical times Branch daily as needed for Cough. terbinafine Yes [id number] 250mg Take 1 [facility] HCL 250 mg 4-04 tablet by [facility] tablet 00:00: mouth [place] 00 daily. Medical [facility] benzonatate Yes [id number] 200mg Take 1 [facility] 200 mg 4-04 capsule by [facility] capsule 00:00: mouth 3 00 (three) Medical times Branch daily as needed for Cough. furosemide 2022- No [id number] 40mg Take 1 [facility] 40 mg 4-04 -27 tablet by [facility] tablet 00:00: 00:00 mouth [place] 00 :00 daily. Medical Branch furosemide 2022- No [id number] 40mg Take 1 [facility] 40 mg 4-04 -27 tablet by [facility] tablet 00:00: 00:00 mouth [place] 00 :00 daily. Medical Branch furosemide 2022- No TAKE 1 [facility] ers 40 mg 3-27 -04 TABLET BY [facility] tablet 00:00: 00:00 MOUTH [place] 00 :00 TWICE Medical DAILY FOR Branch 5 DAYS THEN ONE TABLET DAILY furosemide 2022- No TAKE 1 [facility] ers 40 mg 3-27 04-04 TABLET BY [facility] tablet 00:00: 00:00 MOUTH [place] 00 :00 TWICE Medical DAILY FOR Branch 5 DAYS THEN ONE TABLET DAILY losartan 25 Yes [id number] 25mg Take 1 [facility] mg tablet 3-13 tablet by [facility] o f 00:00: mouth [place] 00 daily. Medical Branch losartan 25 Yes [id number] 25mg Take 1 [facility] mg tablet 3-13 tablet by [facility] o f 00:00: mouth [place] 00 daily. Medical Branch losartan 25 0 Yes [id number] 25mg Take 1 [facility] mg tablet 3-13 tablet by [facility] o f 00:00: mouth [place] 00 daily. [facility] Branch losartan 25 0 Yes [id number] 25mg Take 1 [facility] mg tablet 3-13 tablet by [facility] o f 00:00: mouth [place] 00 daily. Medical Branch losartan 25 0 Yes [id number] 25mg Take 1 [facility] mg tablet 3-13 tablet by [facility] o f 00:00: mouth [place] 00 daily. [facility] losartan 25 2022- No [id number] 25mg Take 1 [facility] mg tablet 3-13 04-12 tablet by [facility] of 00:00: 00:00 mouth [place] 00 :00 daily. Medical Branch losartan 25 3-0 2023- No [id number] 25mg Take 1 [facility] mg tablet 3-13 -12 tablet by [facility] of 00:00: 00:00 mouth [place] 00 :00 daily. Medical Branch cefUROXime 2023-0 Yes [id number] 250mg Take 1 [facility] 250 mg 2-14 tablet by [facility] tablet 00:00: mouth 2 [place] 00 (two) Medical times Branch daily. cefUROXime 2023-0 Yes [id number] 250mg Take 1 [facility] 250 mg 2-14 tablet by [facility] tablet 00:00: mouth [place] (two) Medical times Branch daily. cefUROXime 2023-0 Yes [id number] 250mg Take 1 [facility] 250 mg 2-14 tablet by [facility] tablet 00:00: mouth [place] (two) Medical times Branch daily. cefUROXime 3-0 Yes [id number] 250mg Take 1 [facility] 250 mg 2-14 tablet by [facility] tablet 00:00: mouth [address] [place] [address] (two) Medical times Branch daily. cefUROXime 3-0 Yes [id number] 250mg Take 1 [facility] 250 mg 2-14 tablet by [facility] tablet 00:00: mouth [address] [place] [address] (two) Medical times Branch daily. cefUROXime 2023-0 Yes [id number] 250mg Take 1 [facility] 250 mg 2-14 tablet by [facility] tablet 00:00: mouth [address] [place] [address] (two) Medical times Branch daily. cefUROXime 2023-0 Yes [id number] 250mg Take 1 [facility] 250 mg 2-14 tablet by [facility] of tablet 00:00: mouth [address] [place] [address] (two) Medical times Branch daily. cefUROXime 2023-0 Yes [id number] 250mg Take 1 [facility] 250 mg 2-14 tablet by [facility] of tablet 00:00: mouth 2 [place] 00 (two) Medical times Branch daily. cefUROXime 2023-0 2023- No [id number] 250mg Take 1 [facility] 250 mg 2-14 04-04 tablet by [facility] tablet 00:00: 00:00 mouth 2 [place] 00 :00 (two) Medical times Branch daily. cefUROXime 2023-0 2023- No [id number] 250mg Take 1 [facility] 250 mg 2-14 04-04 tablet by [facility] tablet 00:00: 00:00 mouth 2 [place] 00 :00 (two) Medical times Branch daily. carvedilol 2022-0 2022- No 12.5mg Take 12.5 [facility] (COREG) 2-10 02-10 mg by [facility] 12.5 MG 10:59: 00:00 mouth of tablet 05 :00 daily. Medicin e furosemide 2022-0 Yes 20mg Take 20 mg [place] (LASIX) 20 2-10 by mouth [facility] MG tablet 10:34: daily. of 03 Medicin e losartan 2022-0 Yes 25mg Take 25 mg [place] [facility] (COZAAR) 25 2-10 by mouth [facility] MG tablet 10:34: two times of 03 daily. Medicin e carvedilol 2022-0 Yes 6.25mg Take 6.25 [facility] (COREG) 2-10 mg by [place] 6.25 MG 10:34: mouth of tablet 03 daily. Medicin e famotidine 2022-0 2022- No 20mg Take 1 [place] (PEPCID) 20 2-10 05-12 Tablet by [facility] tablet 00:00: 04:59 mouth two of 00 :00 times Medicin daily for e 90 days. cefdinir 2022-0 Yes [id number] 300mg Take 1 [facility] [place] 300 mg 2-09 capsule by [facility] capsule 00:00: mouth [place] 00 every 12 Medical (twelve) Branch hours. cefdinir 2022-0 Yes [id number] 300mg Take 1 [facility] [place] 300 mg 2-09 capsule by [facility] of capsule 00:00: mouth [place] 00 every 12 Medical (twelve) Branch hours. ferrous 2022-0 Yes [id number] 324mg Take 1 Un braina sulfate 324 1-31 tablet by [facility] of mg (65 mg 00:00: mouth [place] iron) EC 00 daily with Medic al tablet breakfast. Branch ferrous 2022-0 Yes [id number] 324mg Take 1 Un [place] sulfate 324 1-31 tablet by [facility] of mg (65 mg 00:00: mouth [place] iron) EC 00 daily with Medic al tablet breakfast. Branch ferrous 2022-0 Yes [id number] 324mg Take 1 Un [place] sulfate 324 1-31 tablet by [facility] of mg (65 mg 00:00: mouth [place] iron) EC 00 daily with Medic al tablet breakfast. Branch ferrous 2022-0 Yes [id number] 324mg Take 1 Un [place] sulfate 324 1-31 tablet by [facility] of mg (65 mg 00:00: mouth [place] iron) EC 00 daily with Medic al tablet breakfast. Branch ferrous 3-0 Yes [id number] 324mg Take 1 Un [place] sulfate 324 1-31 tablet by [facility] of mg (65 mg 00:00: mouth [place] iron) EC 00 daily with Medic al tablet breakfast. Branch ferrous 2022-0 Yes [id number] 324mg Take 1 Un [place] sulfate 324 1-31 tablet by [facility] of mg (65 mg 00:00: mouth [place] iron) EC 00 daily with Medic al tablet breakfast. Branch ferrous 2022-0 Yes [id number] 324mg Take 1 Un [place] sulfate 324 1-31 tablet by [facility] of mg (65 mg 00:00: mouth [place] iron) EC 00 daily with Medic al tablet breakfast. Branch ferrous 2022-0 Yes [id number] 324mg Take 1 Un [place] sulfate 324 1-31 tablet by [facility] of mg (65 mg 00:00: mouth [place] iron) EC 00 daily with Medic al tablet breakfast. Branch ferrous 2022-0 Yes [id number] 324mg Take 1 Un [place] sulfate 324 1-31 tablet by [facility] of mg (65 mg 00:00: mouth [place] iron) EC 00 daily with Medic al tablet breakfast. Branch ferrous 2022-0 Yes [id number] 324mg Take 1 Un [place] sulfate 324 1-31 tablet by [facility] of mg (65 mg 00:00: mouth [place] iron) EC 00 daily with Medic al tablet breakfast. Branch ferrous 2022-0 Yes [id number] 324mg Take 1 Un [place] sulfate 324 1-31 tablet by [facility] of mg (65 mg 00:00: mouth [place] iron) EC 00 daily with Medic al tablet breakfast. Branch ferrous 3-0 Yes [id number] 324mg Take 1 Un [place] sulfate 324 1-31 tablet by [facility] of mg (65 mg 00:00: mouth [place] iron) EC 00 daily with Medic al tablet breakfast. Branch ferrous 3-0 Yes [id number] 324mg Take 1 Un [place] sulfate 324 1-31 tablet by [facility] of mg (65 mg 00:00: mouth [place] iron) EC 00 daily with Medic al tablet breakfast. Branch ferrous 3-0 Yes [id number] 324mg Take 1 Un [place] sulfate 324 1-31 tablet by [facility] of mg (65 mg 00:00: mouth [place] iron) EC 00 daily with Medic al tablet breakfast. Branch ferrous 3-0 Yes [id number] 324mg Take 1 Un [place] sulfate 324 1-31 tablet by [facility] of mg (65 mg 00:00: mouth [place] iron) EC 00 daily with Medic al tablet breakfast. Branch ferrous 3-0 Yes [id number] 324mg Take 1 Un [place] sulfate 324 1-31 tablet by [facility]y of mg (65 mg 00:00: mouth [place] iron) EC 00 daily with Medic al tablet breakfast. Branch ferrous 2022-0 Yes [id number] 324mg Take 1 Un [place] sulfate 324 1-31 tablet by [facility]y of mg (65 mg 00:00: mouth [place] iron) EC 00 daily with Medic al tablet breakfast. Branch ferrous 3-0 Yes [id number] 324mg Take 1 Un [place] sulfate 324 1-31 tablet by [facility]y of mg (65 mg 00:00: mouth [place] iron) EC 00 daily with Medic al tablet breakfast. Branch ferrous 2022-0 Yes [id number] 324mg Take 1 Un [place] sulfate 324 1-31 tablet by [facility]y of mg (65 mg 00:00: mouth [place] iron) EC 00 daily with Medic al tablet breakfast. Branch ferrous 2022-0 Yes [id number] 324mg Take 1 Un [place] sulfate 324 1-31 tablet by [facility]y of mg (65 mg 00:00: mouth [place] iron) EC 00 daily with Medic al tablet breakfast. Branch ferrous 3-0 Yes [id number] 324mg Take 1 Un [place] sulfate 324 1-31 tablet by [facility]y of mg (65 mg 00:00: mouth [place] iron) EC 00 daily with Medic al tablet breakfast. Branch ferrous 3-0 Yes [id number] 324mg Take 1 Un [place] sulfate 324 1-31 tablet by [facility]y of mg (65 mg 00:00: mouth [place] iron) EC 00 daily with Medic al tablet breakfast. Branch ferrous 3-0 Yes [id number] 324mg Take 1 Un [place] sulfate 324 1-31 tablet by [facility]y of mg (65 mg 00:00: mouth [place] iron) EC 00 daily with Medic al tablet breakfast. Branch ferrous 3-0 Yes [id number] 324mg Take 1 Un [place] sulfate 324 1-31 tablet by [facility] of mg (65 mg 00:00: mouth [place] iron) EC 00 daily with Medic al tablet breakfast. Branch ferrous 3-0 Yes [id number] 324mg Take 1 Un [place] sulfate 324 1-31 tablet by [facility]y of mg (65 mg 00:00: mouth [place] iron) EC 00 daily with Medic al tablet breakfast. Branch ferrous 3-0 Yes [id number] 324mg Take 1 Un [place] sulfate 324 1-31 tablet by [facility]y of mg (65 mg 00:00: mouth [place] iron) EC 00 daily with Medic al tablet breakfast. Branch ferrous 3-0 Yes [id number] 324mg Take 1 Un [place] sulfate 324 1-31 tablet by [facility]y of mg (65 mg 00:00: mouth [place] iron) EC 00 daily with Medic al tablet breakfast. Branch ferrous 3-0 Yes [id number] 324mg Take 1 Un [place] sulfate 324 1-31 tablet by [facility]y of mg (65 mg 00:00: mouth [place] iron) EC 00 daily with Medic al tablet breakfast. Branch ferrous 3-0 Yes [id number] 324mg Take 1 Un [place] sulfate 324 1-31 tablet by [facility]y of mg (65 mg 00:00: mouth [place] iron) EC 00 daily with Medic al tablet breakfast. Branch ferrous 3-0 Yes [id number] 324mg Take 1 Un [place] sulfate 324 1-31 tablet by [facility]y of mg (65 mg 00:00: mouth [place] iron) EC 00 daily with Medic al tablet breakfast. Branch ferrous 3-0 Yes [id number] 324mg Take 1 Un [place] sulfate 324 1-31 tablet by [facility]y of mg (65 mg 00:00: mouth [place] iron) EC 00 daily with Medic al tablet breakfast. Branch ferrous 3-0 Yes [id number] 324mg Take 1 Un [place] sulfate 324 1-31 tablet by ity of mg (65 mg 00:00: mouth [place] iron) EC 00 daily with Medic al tablet breakfast. Branch ferrous 3-0 Yes [id number] 324mg Take 1 Un [place] sulfate 324 1-31 tablet by ity of mg (65 mg 00:00: mouth [place] iron) EC 00 daily with Medic al tablet breakfast. Branch ferrous 3-0 Yes [id number] 324mg Take 1 Un [place] sulfate 324 1-31 tablet by ity of mg (65 mg 00:00: mouth [place] iron) EC 00 daily with Medic al tablet breakfast. Branch ferrous 3-0 Yes [id number] 324mg Take 1 Un [place] sulfate 324 1-31 tablet by ity of mg (65 mg 00:00: mouth [place] iron) EC 00 daily with Medic al tablet breakfast. Branch ferrous 3-0 Yes [id number] 324mg Take 1 Un [place] sulfate 324 1-31 tablet by ity of mg (65 mg 00:00: mouth [place] iron) EC 00 daily with Medic al tablet breakfast. Branch ferrous 3-0 Yes [id number] 324mg Take 1 Un [place] sulfate 324 1-31 tablet by ity of mg (65 mg 00:00: mouth [place] iron) EC 00 daily with Medic al tablet breakfast. Branch ferrous 3-0 Yes [id number] 324mg Take 1 Un [place] sulfate 324 1-31 tablet by ity of mg (65 mg 00:00: mouth [place] iron) EC 00 daily with Medic al tablet breakfast. Branch ferrous 3-0 Yes [id number] 324mg Take 1 Un [place] sulfate 324 1-31 tablet by ity of mg (65 mg 00:00: mouth [place] iron) EC 00 daily with Medic al tablet breakfast. Branch ferrous 3-0 Yes [id number] 324mg Take 1 Un [place] sulfate 324 1-31 tablet by ity of mg (65 mg 00:00: mouth [place] iron) EC 00 daily with Medic al tablet breakfast. Branch ferrous 3-0 Yes [id number] 324mg Take 1 Un [place] sulfate 324 1-31 tablet by [facility]y of mg (65 mg 00:00: mouth [place] iron) EC 00 daily with Medic al tablet breakfast. Branch ferrous 3-0 Yes [id number] 324mg Take 1 Un [place] sulfate 324 1-31 tablet by ity of mg (65 mg 00:00: mouth [place] iron) EC 00 daily with Medic al tablet breakfast. Branch ferrous 3-0 Yes [id number] 324mg Take 1 Un [place] sulfate 324 1-31 tablet by ity of mg (65 mg 00:00: mouth [place] iron) EC 00 daily with Medic al tablet breakfast. Branch ferrous 3-0 Yes [id number] 324mg Take 1 Un [place] sulfate 324 1-31 tablet by ity of mg (65 mg 00:00: mouth [place] iron) EC 00 daily with Medic al tablet breakfast. Branch ferrous 3-0 Yes [id number] 324mg Take 1 Un [place] sulfate 324 1-31 tablet by [facility]y of mg (65 mg 00:00: mouth [place] iron) EC 00 daily with Medic al tablet breakfast. Branch ferrous 3-0 Yes [id number] 324mg Take 1 Un [place] sulfate 324 1-31 tablet by [facility]y of mg (65 mg 00:00: mouth [place] iron) EC 00 daily with Medic al tablet breakfast. Branch ferrous 3-0 Yes [id number] 324mg Take 1 Un [place] sulfate 324 1-31 tablet by [facility]y of mg (65 mg 00:00: mouth [place] iron) EC 00 daily with Medic al tablet breakfast. Branch ferrous 3-0 Yes [id number] 324mg Take 1 Un [place] sulfate 324 1-31 tablet by ity of mg (65 mg 00:00: mouth [place] iron) EC 00 daily with Medic al tablet breakfast. Branch ferrous 2022-0 Yes [id number] 324mg Take 1 Un [place] sulfate 324 1-31 tablet by ity of mg (65 mg 00:00: mouth [place] iron) EC 00 daily with Medic al tablet breakfast. Branch ferrous 2022-0 Yes [id number] 324mg Take 1 Un [place] sulfate 324 1-31 tablet by ity of mg (65 mg 00:00: mouth [place] iron) EC 00 daily with Medic al tablet breakfast. Branch ferrous 3-0 Yes [id number] 324mg Take 1 Un [place] sulfate 324 1-31 tablet by [facility]y of mg (65 mg 00:00: mouth [place] iron) EC 00 daily with Medic al tablet breakfast. Branch ferrous 3-0 Yes [id number] 324mg Take 1 Un [place] sulfate 324 1-31 tablet by ity of mg (65 mg 00:00: mouth [place] iron) EC 00 daily with Medic al tablet breakfast. Branch ferrous 3-0 Yes [id number] 324mg Take 1 Un [place] sulfate 324 1-31 tablet by ity of mg (65 mg 00:00: mouth [place] iron) EC 00 daily with Medic al tablet breakfast. Branch ferrous 3-0 Yes [id number] 324mg Take 1 Un [place] sulfate 324 1-31 tablet by ity of mg (65 mg 00:00: mouth [place] iron) EC 00 daily with Medic al tablet breakfast. Branch ferrous 2022-0 Yes [id number] 324mg Take 1 Un [place] sulfate 324 1-31 tablet by ity of mg (65 mg 00:00: mouth [place] iron) EC 00 daily with Medic al tablet breakfast. Branch ferrous 2022-0 Yes [id number] 324mg Take 1 Un [place] sulfate 324 1-31 tablet by ity of mg (65 mg 00:00: mouth [place] iron) EC 00 daily with Medic al tablet breakfast. Branch ferrous 2022-0 Yes [id number] 324mg Take 1 Un [place] sulfate 324 1-31 tablet by ity of mg (65 mg 00:00: mouth [place] iron) EC 00 daily with Medic al tablet breakfast. Branch ferrous 2022-0 Yes [id number] 324mg Take 1 Un [place] sulfate 324 1-31 tablet by ity of mg (65 mg 00:00: mouth [place] iron) EC 00 daily with Medic al tablet breakfast. Branch losartan 50 2022-0 Yes [id number] 50mg Take 1 [facility] mg tablet 1-27 tablet by ity o f 00:00: mouth [place] 00 daily. Medical Branch furosemide 2022-0 Yes [id number] 20mg Take 1 [facility] nivers 20 mg 1-27 tablet by [facility]y of tablet 00:00: mouth [place] 00 daily. Medical Branch losartan 50 2022-0 Yes [id number] 50mg Take 1 [facility] mg tablet 1-27 tablet by ity o f 00:00: mouth [place] 00 daily. Medical Branch furosemide 2022-0 Yes [id number] 20mg Take 1 [facility] nivers 20 mg 1-27 tablet by [facility]y of tablet 00:00: mouth [place] 00 daily. Medical Branch losartan 50 2022-0 Yes [id number] 50mg Take 1 [facility] mg tablet 1-27 tablet by ity o f 00:00: mouth [place] 00 daily. Medical Branch furosemide 2022-0 Yes [id number] 20mg Take 1 [facility] nivers 20 mg 1-27 tablet by [facility]y of tablet 00:00: mouth [place] 00 daily. Medical Branch losartan 50 2022-0 Yes [id number] 50mg Take 1 [facility] mg tablet 1-27 tablet by ity o f 00:00: mouth [place] 00 daily. Medical Branch furosemide 2022-0 Yes [id number] 20mg Take 1 [facility] nivers 20 mg 1-27 tablet by ity of tablet 00:00: mouth [place] 00 daily. Medical Branch losartan 50 2022-0 Yes [id number] 50mg Take 1 [facility] mg tablet 1-27 tablet by ity o f 00:00: mouth [place] 00 daily. Medical Branch furosemide 2022-0 Yes [id number] 20mg Take 1 [facility] nivers 20 mg 1-27 tablet by ity of tablet 00:00: mouth [place] 00 daily. Medical Branch losartan 50 2022-0 Yes [id number] 50mg Take 1 [facility] mg tablet 1-27 tablet by ity o f 00:00: mouth [place] 00 daily. Medical Branch furosemide 2022-0 Yes [id number] 20mg Take 1 [facility] nivers 20 mg 1-27 tablet by ity of tablet 00:00: mouth [place] 00 daily. Medical Branch losartan 50 2022-0 Yes [id number] 50mg Take 1 [facility] mg tablet 1-27 tablet by ity o f 00:00: mouth [place] 00 daily. Medical Branch furosemide 2022-0 Yes [id number] 20mg Take 1 [facility] nivers 20 mg 1-27 tablet by ity of tablet 00:00: mouth [place] 00 daily. Medical Branch losartan 50 2022-0 Yes [id number] 50mg Take 1 [facility] mg tablet 1-27 tablet by ity o f 00:00: mouth [place] 00 daily. Medical Branch furosemide 2022-0 Yes [id number] 20mg Take 1 [facility] nivers 20 mg 1-27 tablet by ity of tablet 00:00: mouth [place] 00 daily. Medical Branch losartan 50 2022-0 Yes [id number] 50mg Take 1 [facility] mg tablet 1-27 tablet by ity o f 00:00: mouth [place] 00 daily. Medical Branch furosemide 3-0 Yes [id number] 20mg Take 1 [facility] nivers 20 mg 1-27 tablet by ity of tablet 00:00: mouth [place] 00 daily. Medical Branch losartan 50 2022-0 Yes [id number] 50mg Take 1 [facility] mg tablet 1-27 tablet by ity o f 00:00: mouth [place] 00 daily. Medical Branch furosemide 3-0 Yes [id number] 20mg Take 1 [facility] nivers 20 mg 1-27 tablet by [facility]y of tablet 00:00: mouth [place] 00 daily. Medical Branch losartan 50 2022-0 Yes [id number] 50mg Take 1 [facility] mg tablet 1-27 tablet by ity o f 00:00: mouth [place] 00 daily. Medical Branch furosemide 3-0 Yes [id number] 20mg Take 1 [facility] nivers 20 mg 1-27 tablet by ity of tablet 00:00: mouth [place] 00 daily. Medical Branch losartan 50 2022-0 Yes [id number] 50mg Take 1 [facility] mg tablet 1-27 tablet by ity o f 00:00: mouth [place] 00 daily. Medical Branch furosemide 2023-0 Yes [id number] 20mg Take 1 [facility] nivers 20 mg 1-27 tablet by [facility]y of tablet 00:00: mouth [place] 00 daily. Medical Branch losartan 50 2022-0 Yes [id number] 50mg Take 1 [facility] mg tablet 1-27 tablet by ity o f 00:00: mouth [place] 00 daily. Medical Branch furosemide 3-0 Yes [id number] 20mg Take 1 [facility] nivers 20 mg 1-27 tablet by [facility]y of tablet 00:00: mouth [place] 00 daily. Medical Branch losartan 50 2022-0 Yes [id number] 50mg Take 1 [facility] mg tablet 1-27 tablet by ity o f 00:00: mouth [place] 00 daily. Medical Branch furosemide 3-0 Yes [id number] 20mg Take 1 [facility] nivers 20 mg 1-27 tablet by ity of tablet 00:00: mouth [place] 00 daily. Medical Branch losartan 50 2022-0 Yes [id number] 50mg Take 1 [facility] mg tablet 1-27 tablet by ity o f 00:00: mouth [place] 00 daily. Medical Branch furosemide 3-0 Yes [id number] 20mg Take 1 [facility] nivers 20 mg 1-27 tablet by [facility]y of tablet 00:00: mouth [place] 00 daily. Medical Branch losartan 50 2022-0 Yes [id number] 50mg Take 1 [facility] mg tablet 1-27 tablet by ity o f 00:00: mouth [place] 00 daily. Medical Branch furosemide 3-0 Yes [id number] 20mg Take 1 [facility] nivers 20 mg 1-27 tablet by [facility]y of tablet 00:00: mouth [place] 00 daily. Medical Branch furosemide 2023-0 Yes [id number] 20mg Take 1 [facility] nivers 20 mg 1-27 tablet by [facility]y of tablet 00:00: mouth [place] 00 daily. Medical Branch furosemide 2023-0 Yes [id number] 20mg Take 1 [facility] nivers 20 mg 1-27 tablet by [facility]y of tablet 00:00: mouth [place] 00 daily. Medical Branch furosemide 2023-0 Yes [id number] 20mg Take 1 [facility] nivers 20 mg 1-27 tablet by ity of tablet 00:00: mouth [place] 00 daily. Medical Branch furosemide 2022- No [id number] 20mg Take 1 [facility] 20 mg 03-11-04 tablet by [facility]y of tablet 00:00: 00:00 mouth [place] 00 :00 daily. Medical Branch furosemide 2022- No [id number] 20mg Take 1 [facility] 20 mg 03-11-04 tablet by [facility]y of tablet 00:00: 00:00 mouth [place] 00 :00 daily. Medical Branch losartan 50 2022- No [id number] 50mg Take 1 [facility] mg tablet 03-11 03-13 tablet by [facility]y of 00:00: 00:00 mouth [place] 00 :00 daily. Medical Branch carvediloL 2021-02 Yes [id number] 6.25mg Take 1 [facility] 6.25 mg 2-09 tablet by [facility]y of tablet 00:00: mouth 2 [place] 00 (two) Medical times Branch daily with meals. atorvastati 2021-02 Yes [id number] 20mg Take 1 [facility] n 20 mg 2-09 tablet by [facility] of tablet 00:00: mouth at [place] 00 bedtime. Medical Branch omeprazole 2021-02 Yes [id number] 1{tbl} Take 1 [facility] 20 mg TbLD 2-09 tablet by ity of 00:00: mouth [place] 00 daily. Medical Branch tolterodine 2021-02 Yes [id number] 2mg Take 1 [facility] [place] 2 mg 24 2-09 capsule by [facility] of hr capsule 00:00: mouth [place] 00 daily. Medical Branch carvediloL 2021-02 Yes [id number] 6.25mg Take 1 [facility] 6.25 mg 2-09 tablet by [facility]y of tablet 00:00: mouth 2 [place] 00 (two) [facility] daily with meals. atorvastati 2021-02 Yes [id number] 20mg Take 1 [facility] 20 mg 2-09 tablet by [facility] tablet 00:00: mouth at [place] 00 bedtime. [facility] omeprazole 2021-02 Yes [id number] 1{tbl} Take 1 [facility] 20 mg TbLD 2-09 tablet by [facility] 00:00: mouth [place] 00 daily. [facility] tolterodine 2021-02 Yes [id number] 2mg Take 1 [facility] [place] 2 mg 24 2-09 capsule by [facility] capsule 00:00: mouth [place] 00 daily. [facility] carvediloL 2021-02 Yes [id number] 6.25mg Take 1 [facility] 6.25 mg 2-09 tablet by [facility] tablet 00:00: mouth 2 (two) [facility] daily with meals. atorvastati 2021-02 Yes [id number] 20mg Take 1 [facility] 20 mg 2-09 tablet by [facility] tablet 00:00: mouth at [place] 00 bedtime. [facility] omeprazole 2021-02 Yes [id number] 1{tbl} Take 1 [facility] 20 mg TbLD 2-09 tablet by [facility] 00:00: mouth [place] 00 daily. [facility] tolterodine 2021-02 Yes [id number] 2mg Take 1 [facility] [place] 2 mg 24 2-09 capsule by [facility] capsule 00:00: mouth [place] 00 daily. [facility] carvediloL 2021-02 Yes [id number] 6.25mg Take 1 [facility] 6.25 mg 2-09 tablet by [facility] tablet 00:00: mouth 2 (two) [facility] daily with meals. atorvastati 2021-02 Yes [id number] 20mg Take 1 [facility] 20 mg 2-09 tablet by [facility] tablet 00:00: mouth at [place] 00 bedtime. [facility] omeprazole 2021-02 Yes [id number] 1{tbl} Take 1 [facility] 20 mg TbLD 2-09 tablet by [facility] 00:00: mouth [place] 00 daily. [facility] tolterodine 2021-02 Yes [id number] 2mg Take 1 [facility] [place] 2 mg 24 2-09 capsule by [facility] capsule 00:00: mouth [place] 00 daily. [facility] carvediloL 2021-02 Yes [id number] 6.25mg Take 1 [facility] 6.25 mg 2-09 tablet by [facility] tablet 00:00: mouth 2 (two) [facility] daily with meals. atorvastati 2021-02 Yes [id number] 20mg Take 1 [facility] 20 mg 2-09 tablet by [facility] tablet 00:00: mouth at [place] 00 bedtime. [facility] omeprazole 2021-02 Yes [id number] 1{tbl} Take 1 [facility] 20 mg TbLD 2-09 tablet by [facility] 00:00: mouth [place] 00 daily. [facility] tolterodine 2021-02 Yes [id number] 2mg Take 1 [facility] [place] 2 mg 24 2-09 capsule by [facility] capsule 00:00: mouth [place] 00 daily. [facility] carvediloL 2021-02 Yes [id number] 6.25mg Take 1 [facility] 6.25 mg 2-09 tablet by [facility] tablet 00:00: mouth 2 (two) [facility] daily with meals. atorvastati 2021-02 Yes [id number] 20mg Take 1 [facility] 20 mg 2-09 tablet by [facility] tablet 00:00: mouth at [place] 00 bedtime. [facility] omeprazole 2021-02 Yes [id number] 1{tbl} Take 1 [facility] 20 mg TbLD 2-09 tablet by [facility] 00:00: mouth [place] 00 daily. [facility] tolterodine 2021-02 Yes [id number] 2mg Take 1 [facility] [place] 2 mg 24 2-09 capsule by [facility] capsule 00:00: mouth [place] 00 daily. [facility] carvediloL 2021-02 Yes [id number] 6.25mg Take 1 [facility] 6.25 mg 2-09 tablet by [facility] tablet 00:00: mouth 2 (two) [facility] daily with meals. atorvastati 2021-02 Yes [id number] 20mg Take 1 [facility] 20 mg 2-09 tablet by [facility] tablet 00:00: mouth at [place] 00 bedtime. [facility] omeprazole 2021-02 Yes [id number] 1{tbl} Take 1 [facility] 20 mg TbLD 2-09 tablet by [facility] 00:00: mouth [place] 00 daily. [facility] tolterodine 2021-02 Yes [id number] 2mg Take 1 [facility] [place] 2 mg 24 2-09 capsule by [facility] capsule 00:00: mouth [place] 00 daily. [facility] carvediloL 2021-02 Yes [id number] 6.25mg Take 1 [facility] 6.25 mg 2-09 tablet by [facility] tablet 00:00: mouth 2 (two) [facility] daily with meals. atorvastati 2021-02 Yes [id number] 20mg Take 1 [facility] 20 mg 2-09 tablet by [facility] tablet 00:00: mouth at [place] 00 bedtime. [facility] omeprazole 2021-02 Yes [id number] 1{tbl} Take 1 [facility] 20 mg TbLD 2-09 tablet by [facility] 00:00: mouth [place] 00 daily. [facility] tolterodine 2021-02 Yes [id number] 2mg Take 1 [facility] [place] 2 mg 24 2-09 capsule by [facility] capsule 00:00: mouth [place] 00 daily. [facility] carvediloL 2021-02 Yes [id number] 6.25mg Take 1 [facility] 6.25 mg 2-09 tablet by [facility] tablet 00:00: mouth 2 00 (two) [facility] daily with meals. atorvastati 2021-02 Yes [id number] 20mg Take 1 [facility] 20 mg 2-09 tablet by [facility] tablet 00:00: mouth at [place] 00 bedtime. [facility] omeprazole 2021-02 Yes [id number] 1{tbl} Take 1 [facility] 20 mg TbLD 2-09 tablet by [facility] 00:00: mouth [place] 00 daily. [facility] tolterodine 2021-02 Yes [id number] 2mg Take 1 [facility] [place] 2 mg 24 2-09 capsule by [facility] capsule 00:00: mouth [place] 00 daily. [facility] carvediloL 2021-02 Yes [id number] 6.25mg Take 1 [facility] 6.25 mg 2-09 tablet by [facility] tablet 00:00: mouth 2 (two) [facility] daily with meals. atorvastati 2021-02 Yes [id number] 20mg Take 1 [facility] 20 mg 2-09 tablet by [facility] tablet 00:00: mouth at [place] 00 bedtime. [facility] omeprazole 2021-02 Yes [id number] 1{tbl} Take 1 [facility] 20 mg TbLD 2-09 tablet by [facility] 00:00: mouth [place] 00 daily. [facility] tolterodine 2021-02 Yes [id number] 2mg Take 1 [facility] [place] 2 mg 24 2-09 capsule by [facility] capsule 00:00: mouth [place] 00 daily. [facility] carvediloL 2021-02 Yes [id number] 6.25mg Take 1 [facility] 6.25 mg 2-09 tablet by [facility] tablet 00:00: mouth 2 00 (two) [facility] daily with meals. atorvastati 2021-02 Yes [id number] 20mg Take 1 [facility] 20 mg 2-09 tablet by [facility] tablet 00:00: mouth at [place] 00 bedtime. [facility] omeprazole 2021-02 Yes [id number] 1{tbl} Take 1 [facility] 20 mg TbLD 2-09 tablet by [facility] 00:00: mouth [place] 00 daily. [facility] tolterodine 2021-02 Yes [id number] 2mg Take 1 [facility] [place] 2 mg 24 2-09 capsule by [facility] capsule 00:00: mouth [place] 00 daily. [facility] carvediloL 2021-02 Yes [id number] 6.25mg Take 1 [facility] 6.25 mg 2-09 tablet by [facility] tablet 00:00: mouth 2 [place] 00 (two) [facility] daily with meals. atorvastati 2021-02 Yes [id number] 20mg Take 1 [facility] 20 mg 2-09 tablet by [facility] tablet 00:00: mouth at [place] 00 bedtime. [facility] omeprazole 2021-02 Yes [id number] 1{tbl} Take 1 [facility] 20 mg TbLD 2-09 tablet by [facility] 00:00: mouth [place] 00 daily. [facility] tolterodine 2021-02 Yes [id number] 2mg Take 1 [facility] 2 mg 24 2-09 capsule by [facility] capsule 00:00: mouth [place] 00 daily. [facility] carvediloL 2021-02 Yes [id number] 6.25mg Take 1 [facility] 6.25 mg 2-09 tablet by [facility] tablet 00:00: mouth 2 (two) [facility] daily with meals. atorvastati 2021-02 Yes [id number] 20mg Take 1 [facility] 20 mg 2-09 tablet by [facility] tablet 00:00: mouth at [place] 00 bedtime. [facility] omeprazole 2021-02 Yes [id number] 1{tbl} Take 1 [facility] 20 mg TbLD 2-09 tablet by [facility] 00:00: mouth [place] 00 daily. [facility] tolterodine 2021-02 Yes [id number] 2mg Take 1 [facility] 2 mg 24 2-09 capsule by [facility] capsule 00:00: mouth [place] 00 daily. [facility] carvediloL 2021-02 Yes [id number] 6.25mg Take 1 [facility] 6.25 mg 2-09 tablet by [facility] tablet 00:00: mouth 2 00 (two) [facility] daily with meals. atorvastati 2021-02 Yes [id number] 20mg Take 1 [facility] 20 mg 2-09 tablet by [facility] tablet 00:00: mouth at [place] 00 bedtime. [facility] omeprazole 2021-02 Yes [id number] 1{tbl} Take 1 [facility] 20 mg TbLD 2-09 tablet by [facility] 00:00: mouth [place] 00 daily. [facility] tolterodine 2021-02 Yes [id number] 2mg Take 1 [facility] 2 mg 24 2-09 capsule by [facility] capsule 00:00: mouth [place] 00 daily. [facility] carvediloL 2021-02 Yes [id number] 6.25mg Take 1 [facility] 6.25 mg 2-09 tablet by [facility] tablet 00:00: mouth 2 00 (two) [facility] daily with meals. atorvastati 2021-02 Yes [id number] 20mg Take 1 [facility] 20 mg 2-09 tablet by [facility] tablet 00:00: mouth at [place] 00 bedtime. [facility] omeprazole 2021-02 Yes [id number] 1{tbl} Take 1 [facility] 20 mg TbLD 2-09 tablet by [facility] 00:00: mouth [place] 00 daily. [facility] tolterodine 2021-02 Yes [id number] 2mg Take 1 [facility] 2 mg 24 2-09 capsule by [facility] capsule 00:00: mouth [place] 00 daily. [facility] carvediloL 2021-02 Yes [id number] 6.25mg Take 1 [facility] 6.25 mg 2-09 tablet by [facility] tablet 00:00: mouth 2 (two) [facility] daily with meals. atorvastati 2021-02 Yes [id number] 20mg Take 1 [facility] 20 mg 2-09 tablet by [facility] tablet 00:00: mouth at [place] 00 bedtime. [facility] omeprazole 2021-02 Yes [id number] 1{tbl} Take 1 [facility] 20 mg TbLD 2-09 tablet by [facility] 00:00: mouth [place] 00 daily. [facility] tolterodine 2021-02 Yes [id number] 2mg Take 1 [facility] 2 mg 24 2-09 capsule by [facility] capsule 00:00: mouth [place] 00 daily. [facility] carvediloL 2021-02 Yes [id number] 6.25mg Take 1 [facility] 6.25 mg 2-09 tablet by [facility] tablet 00:00: mouth 2 (two) [facility] daily with meals. atorvastati 2021-02 Yes [id number] 20mg Take 1 [facility] 20 mg 2-09 tablet by [facility] tablet 00:00: mouth at [place] 00 bedtime. [facility] omeprazole 2021-02 Yes [id number] 1{tbl} Take 1 [facility] 20 mg TbLD 2-09 tablet by [facility] 00:00: mouth [place] 00 daily. [facility] tolterodine 2021-02 Yes [id number] 2mg Take 1 [facility] 2 mg 24 2-09 capsule by [facility] capsule 00:00: mouth [place] 00 daily. [facility] carvediloL 2021-02 Yes [id number] 6.25mg Take 1 [facility] 6.25 mg 2-09 tablet by [facility] tablet 00:00: mouth 2 00 (two) [facility] daily with meals. atorvastati 2021-02 Yes [id number] 20mg Take 1 [facility] 20 mg 2-09 tablet by [facility] tablet 00:00: mouth at [place] 00 bedtime. [facility] tolterodine 2021-02 Yes [id number] 2mg Take 1 [facility] 2 mg 24 2-09 capsule by [facility] hr capsule 00:00: mouth [place] 00 daily. [facility] carvediloL 2021-02 Yes [id number] 6.25mg Take 1 [facility] 6.25 mg 2-09 tablet by [facility] tablet 00:00: mouth 2 00 (two) [facility] daily with meals. atorvastati 2021-02 Yes [id number] 20mg Take 1 [facility] 20 mg 2-09 tablet by [facility] tablet 00:00: mouth at [place] 00 bedtime. [facility] tolterodine 2021-02 Yes [id number] 2mg Take 1 [facility] 2 mg 24 2-09 capsule by [facility] hr capsule 00:00: mouth [place] 00 daily. [facility] carvediloL 2021-02 Yes [id number] 6.25mg Take 1 [facility] 6.25 mg 2-09 tablet by [facility] tablet 00:00: mouth 2 00 (two) [facility] daily with meals. atorvastati 2021-02 Yes [id number] 20mg Take 1 [facility] 20 mg 2-09 tablet by [facility] tablet 00:00: mouth at [place] 00 bedtime. [facility] tolterodine 2021-02 Yes [id number] 2mg Take 1 [facility] 2 mg 24 2-09 capsule by [facility] hr capsule 00:00: mouth [place] 00 daily. [facility] carvediloL 2021-02 Yes [id number] 6.25mg Take 1 [facility] 6.25 mg 2-09 tablet by [facility] tablet 00:00: mouth 2 (two) [facility] daily with meals. atorvastati 2021-02 Yes [id number] 20mg Take 1 [facility] 20 mg 2-09 tablet by [facility] tablet 00:00: mouth at [place] 00 bedtime. [facility] tolterodine 2021-02 Yes [id number] 2mg Take 1 [facility] 2 mg 24 2-09 capsule by [facility] hr capsule 00:00: mouth [place] 00 daily. [facility] carvediloL 2021-02 Yes [id number] 6.25mg Take 1 [facility] 6.25 mg 2-09 tablet by [facility] tablet 00:00: mouth 2 (two) [facility] daily with meals. atorvastati 2021-02 Yes [id number] 20mg Take 1 [facility] 20 mg 2-09 tablet by [facility] tablet 00:00: mouth at [place] 00 bedtime. [facility] tolterodine 2021-02 Yes [id number] 2mg Take 1 [facility] 2 mg 24 2-09 capsule by [facility] hr capsule 00:00: mouth 00 daily. [facility] carvediloL 2021-02 Yes [id number] 6.25mg Take 1 [facility] 6.25 mg 2-09 tablet by [facility] tablet 00:00: mouth 2 (two) [facility] daily with meals. atorvastati 2021-02 Yes [id number] 20mg Take 1 [facility] 20 mg 2-09 tablet by [facility] tablet 00:00: mouth at [place] 00 bedtime. [facility] tolterodine 2021-02 Yes [id number] 2mg Take 1 [facility] 2 mg 24 2-09 capsule by [facility] hr capsule 00:00: mouth [place] 00 daily. [facility] carvediloL 2021-02 Yes [id number] 6.25mg Take 1 [facility] 6.25 mg 2-09 tablet by [facility] tablet 00:00: mouth 2 00 (two) [facility] daily with meals. atorvastati 2021-02 Yes [id number] 20mg Take 1 [facility] 20 mg 2-09 tablet by [facility] tablet 00:00: mouth at [place] 00 bedtime. [facility] tolterodine 2021-02 Yes [id number] 2mg Take 1 [facility] 2 mg 24 2-09 capsule by [facility] capsule 00:00: mouth 00 daily. [facility] carvediloL 2021-02 Yes [id number] 6.25mg Take 1 [facility] 6.25 mg 2-09 tablet by [facility] tablet 00:00: mouth 2 (two) [facility] daily with meals. atorvastati 2021-02 Yes [id number] 20mg Take 1 [facility] 20 mg 2-09 tablet by [facility] tablet 00:00: mouth at [place] 00 bedtime. [facility] tolterodine 2021-02 Yes [id number] 2mg Take 1 [facility] 2 mg 24 2-09 capsule by [facility] capsule 00:00: mouth 00 daily. [facility] carvediloL 2021-02 Yes [id number] 6.25mg Take 1 [facility] 6.25 mg 2-09 tablet by [facility] tablet 00:00: mouth 2 (two) [facility] daily with meals. atorvastati 2021-02 Yes [id number] 20mg Take 1 [facility] 20 mg 2-09 tablet by [facility] tablet 00:00: mouth at [place] 00 bedtime. [facility] tolterodine 2021-02 Yes [id number] 2mg Take 1 [facility] 2 mg 24 2-09 capsule by [facility] capsule 00:00: mouth 00 daily. [facility] carvediloL 2021-02 Yes [id number] 6.25mg Take 1 [facility] 6.25 mg 2-09 tablet by [facility] tablet 00:00: mouth 2 (two) [facility] daily with meals. atorvastati 2021-02 Yes [id number] 20mg Take 1 [facility] 20 mg 2-09 tablet by [facility] tablet 00:00: mouth at [place] 00 bedtime. [facility] tolterodine 2021-02 Yes [id number] 2mg Take 1 [facility] 2 mg 24 2-09 capsule by [facility] capsule 00:00: mouth 00 daily. [facility] carvediloL 2021-02 Yes [id number] 6.25mg Take 1 [facility] 6.25 mg 2-09 tablet by [facility] tablet 00:00: mouth 2 (two) [facility] daily with meals. atorvastati 2021-02 Yes [id number] 20mg Take 1 [facility] 20 mg 2-09 tablet by [facility] tablet 00:00: mouth at [place] 00 bedtime. [facility] tolterodine 2021-02 Yes [id number] 2mg Take 1 [facility] 2 mg 24 2-09 capsule by [facility] capsule 00:00: mouth 00 daily. [facility] carvediloL 2021-02 Yes [id number] 6.25mg Take 1 [facility] 6.25 mg 2-09 tablet by [facility] tablet 00:00: mouth 2 (two) [facility] daily with meals. atorvastati 2021-02 Yes [id number] 20mg Take 1 [facility] 20 mg 2-09 tablet by [facility] tablet 00:00: mouth at [place] 00 bedtime. [facility] tolterodine 2021-02 Yes [id number] 2mg Take 1 [facility] 2 mg 24 2-09 capsule by [facility] capsule 00:00: mouth 00 daily. [facility] carvediloL 2021-02 Yes [id number] 6.25mg Take 1 [facility] 6.25 mg 2-09 tablet by [facility] tablet 00:00: mouth 2 (two) [facility] daily with meals. atorvastati 2021-02 Yes [id number] 20mg Take 1 [facility] 20 mg 2-09 tablet by [facility] tablet 00:00: mouth at [place] 00 bedtime. [facility] tolterodine 2021-02 Yes [id number] 2mg Take 1 [facility] 2 mg 24 2-09 capsule by [facility] hr capsule 00:00: mouth daily. [facility] carvediloL 2021-02 Yes [id number] 6.25mg Take 1 [facility] 6.25 mg 2-09 tablet by [facility] tablet 00:00: mouth 2 (two) [facility] daily with meals. atorvastati 2021-02 Yes [id number] 20mg Take 1 [facility] 20 mg 2-09 tablet by [facility] tablet 00:00: mouth at [place] 00 bedtime. [facility] tolterodine 2021-02 Yes [id number] 2mg Take 1 [facility] 2 mg 24 2-09 capsule by [facility] capsule 00:00: mouth 00 daily. [facility] carvediloL 2021-02 Yes [id number] 6.25mg Take 1 [facility] 6.25 mg 2-09 tablet by [facility] tablet 00:00: mouth 2 (two) [facility] daily with meals. atorvastati 2021-02 Yes [id number] 20mg Take 1 [facility] 20 mg 2-09 tablet by [facility] tablet 00:00: mouth at [place] 00 bedtime. [facility] tolterodine 2021-02 Yes [id number] 2mg Take 1 [facility] 2 mg 24 2-09 capsule by [facility] hr capsule 00:00: mouth [place] 00 daily. [facility] carvediloL 2021-02 Yes [id number] 6.25mg Take 1 [facility] 6.25 mg 2-09 tablet by [facility] tablet 00:00: mouth 2 (two) [facility] daily with meals. atorvastati 2021-02 Yes [id number] 20mg Take 1 [facility] 20 mg 2-09 tablet by [facility] tablet 00:00: mouth at [place] 00 bedtime. [facility] tolterodine 2021-02 Yes [id number] 2mg Take 1 [facility] 2 mg 24 2-09 capsule by [facility] hr capsule 00:00: mouth [place] 00 daily. [facility] carvediloL 2021-02 Yes [id number] 6.25mg Take 1 [facility] 6.25 mg 2-09 tablet by [facility] tablet 00:00: mouth 2 (two) [facility] daily with meals. atorvastati 2021-02 Yes [id number] 20mg Take 1 [facility] 20 mg 2-09 tablet by [facility] tablet 00:00: mouth at [place] 00 bedtime. [facility] tolterodine 2021-02 Yes [id number] 2mg Take 1 [facility] 2 mg 24 2-09 capsule by [facility] hr capsule 00:00: mouth [place] 00 daily. [facility] carvediloL 2021-02 Yes [id number] 6.25mg Take 1 [facility] 6.25 mg 2-09 tablet by [facility] tablet 00:00: mouth 2 (two) [facility] daily with meals. atorvastati 2021-02 Yes [id number] 20mg Take 1 [facility] 20 mg 2-09 tablet by [facility] tablet 00:00: mouth at [place] 00 bedtime. [facility] tolterodine 2021-02 Yes [id number] 2mg Take 1 [facility] 2 mg 24 2-09 capsule by [facility] hr capsule 00:00: mouth [place] 00 daily. [facility] carvediloL 2021-02 Yes [id number] 6.25mg Take 1 [facility] 6.25 mg 2-09 tablet by [facility] tablet 00:00: mouth 2 (two) [facility] daily with meals. atorvastati 2021-02 Yes [id number] 20mg Take 1 [facility] 20 mg 2-09 tablet by [facility] tablet 00:00: mouth at [place] 00 bedtime. [facility] tolterodine 2021-02 Yes [id number] 2mg Take 1 [facility] 2 mg 24 2-09 capsule by [facility] hr capsule 00:00: mouth 00 daily. [facility] carvediloL 2021-02 Yes [id number] 6.25mg Take 1 [facility] 6.25 mg 2-09 tablet by [facility] tablet 00:00: mouth 2 (two) [facility] daily with meals. atorvastati 2021-02 Yes [id number] 20mg Take 1 [facility] 20 mg 2-09 tablet by [facility] tablet 00:00: mouth at 00 bedtime. [facility] tolterodine 2021-02 Yes [id number] 2mg Take 1 [facility] 2 mg 24 2-09 capsule by [facility] capsule 00:00: mouth 00 daily. [facility] carvediloL 2021-02 Yes [id number] 6.25mg Take 1 [facility] 6.25 mg 2-09 tablet by [facility] tablet 00:00: mouth 2 (two) [facility] daily with meals. tolterodine 2021-02 Yes [id number] 2mg Take 1 [facility] 2 mg 24 2-09 capsule by [facility] hr capsule 00:00: mouth [place] 00 daily. [facility] carvediloL 2021-02 Yes [id number] 6.25mg Take 1 [facility] 6.25 mg 2-09 tablet by [facility] tablet 00:00: mouth 2 (two) [facility] daily with meals. tolterodine 2021-02 Yes [id number] 2mg Take 1 [facility] 2 mg 24 2-09 capsule by [facility] hr capsule 00:00: mouth [place] 00 daily. [facility] carvediloL 2021-02 Yes [id number] 6.25mg Take 1 [facility] 6.25 mg 2-09 tablet by [facility] tablet 00:00: mouth (two) [facility] daily with meals. tolterodine 2021-02 Yes [id number] 2mg Take 1 [facility] 2 mg 24 2-09 capsule by [facility] hr capsule 00:00: mouth [place] 00 daily. [facility] carvediloL 2021-02 Yes [id number] 6.25mg Take 1 [facility] 6.25 mg 2-09 tablet by [facility] tablet 00:00: mouth (two) [facility] daily with meals. tolterodine 2021-02 Yes [id number] 2mg Take 1 [facility] 2 mg 24 2-09 capsule by [facility] hr capsule 00:00: mouth 00 daily. [facility] carvediloL 2021-02 Yes [id number] 6.25mg Take 1 [facility] 6.25 mg 2-09 tablet by [facility] tablet 00:00: mouth (two) [facility] daily with meals. tolterodine 2021-02 Yes [id number] 2mg Take 1 [facility] 2 mg 24 2-09 capsule by [facility] capsule 00:00: mouth 00 daily. [facility] carvediloL 2021-02 Yes [id number] 6.25mg Take 1 [facility] 6.25 mg 2-09 tablet by [facility] tablet 00:00: mouth (two) [facility] daily with meals. tolterodine 2021-02 Yes [id number] 2mg Take 1 [facility] 2 mg 24 2-09 capsule by [facility] capsule 00:00: mouth 00 daily. [facility] carvediloL 2021-02 Yes [id number] 6.25mg Take 1 [facility] 6.25 mg 2-09 tablet by [facility] tablet 00:00: mouth (two) [facility] daily with meals. tolterodine 2021-02 Yes [id number] 2mg Take 1 [facility] 2 mg 24 2-09 capsule by [facility] capsule 00:00: mouth 00 daily. [facility] carvediloL 2021-02 Yes [id number] 6.25mg Take 1 [facility] 6.25 mg 2-09 tablet by [facility] tablet 00:00: mouth (two) [facility] daily with meals. tolterodine 2021-02 Yes [id number] 2mg Take 1 [facility] 2 mg 24 2-09 capsule by [facility] hr capsule 00:00: mouth [place] 00 daily. [facility] carvediloL 2021-02 Yes [id number] 6.25mg Take 1 [facility] 6.25 mg 2-09 tablet by [facility] tablet 00:00: mouth (two) [facility] daily with meals. tolterodine 2021-02 Yes [id number] 2mg Take 1 [facility] 2 mg 24 2-09 capsule by [facility] hr capsule 00:00: mouth [place] 00 daily. [facility] carvediloL 2021-02 Yes [id number] 6.25mg Take 1 [facility] 6.25 mg 2-09 tablet by [facility] tablet 00:00: mouth (two) [facility] daily with meals. tolterodine 2021-02 Yes [id number] 2mg Take 1 [facility] 2 mg 24 2-09 capsule by [facility] capsule 00:00: mouth 00 daily. [facility] carvediloL 2021-02 Yes [id number] 6.25mg Take 1 [facility] 6.25 mg 2-09 tablet by [facility] tablet 00:00: mouth (two) [facility] daily with meals. tolterodine 2021-02 Yes [id number] 2mg Take 1 [facility] 2 mg 24 2-09 capsule by [facility] hr capsule 00:00: mouth [place] 00 daily. [facility] carvediloL 2021-02 Yes [id number] 6.25mg Take 1 [facility] 6.25 mg 2-09 tablet by [facility] tablet 00:00: mouth (two) [facility] daily with meals. tolterodine 2021-02 Yes [id number] 2mg Take 1 [facility] 2 mg 24 2-09 capsule by [facility] hr capsule 00:00: mouth [place] 00 daily. [facility] carvediloL 2021-02 Yes [id number] 6.25mg Take 1 [facility] 6.25 mg 2-09 tablet by [facility] tablet 00:00: mouth (two) [facility] daily with meals. tolterodine 2021-02 Yes [id number] 2mg Take 1 [facility] 2 mg 24 2-09 capsule by [facility] hr capsule 00:00: mouth [place] 00 daily. [facility] carvediloL 2021-02 Yes [id number] 6.25mg Take 1 [facility] 6.25 mg 2-09 tablet by [facility] tablet 00:00: mouth (two) [facility] daily with meals. tolterodine 2021-02 Yes [id number] 2mg Take 1 [facility] 2 mg 24 2-09 capsule by [facility] capsule 00:00: mouth 00 daily. [facility] carvediloL 2021-02 Yes [id number] 6.25mg Take 1 [facility] 6.25 mg 2-09 tablet by [facility] tablet 00:00: mouth (two) [facility] daily with meals. tolterodine 2021-02 Yes [id number] 2mg Take 1 [facility] 2 mg 24 2-09 capsule by [facility] hr capsule 00:00: mouth 00 daily. [facility] carvediloL 2021-02 Yes [id number] 6.25mg Take 1 [facility] 6.25 mg 2-09 tablet by [facility] tablet 00:00: mouth (two) [facility] daily with meals. tolterodine 2021-02 Yes [id number] 2mg Take 1 [facility] 2 mg 24 2-09 capsule by [facility] hr capsule 00:00: mouth 00 daily. [facility] carvediloL 2021-02 Yes [id number] 6.25mg Take 1 [facility] 6.25 mg 2-09 tablet by [facility] tablet 00:00: mouth (two) [facility] daily with meals. tolterodine 2021-02 Yes [id number] 2mg Take 1 [facility] 2 mg 24 2-09 capsule by [facility] hr capsule 00:00: mouth 00 daily. [facility] carvediloL 2021-02 Yes [id number] 6.25mg Take 1 [facility] 6.25 mg 2-09 tablet by [facility] tablet 00:00: mouth (two) [facility] daily with meals. tolterodine 2021-02 Yes [id number] 2mg Take 1 [facility] 2 mg 24 2-09 capsule by [facility] hr capsule 00:00: mouth 00 daily. [facility] carvediloL 2021-02 Yes [id number] 6.25mg Take 1 [facility] 6.25 mg 2-09 tablet by [facility] tablet 00:00: mouth (two) [facility] daily with meals. tolterodine 2021-02 Yes [id number] 2mg Take 1 [facility] 2 mg 24 2-09 capsule by [facility] hr capsule 00:00: mouth [place] 00 daily. [facility] carvediloL 2021-02 Yes [id number] 6.25mg Take 1 [facility] 6.25 mg 2-09 tablet by [facility] tablet 00:00: mouth (two) [facility] daily with meals. tolterodine 2021-02 Yes [id number] 2mg Take 1 [facility] 2 mg 24 2-09 capsule by [facility] hr capsule 00:00: mouth [place] 00 daily. [facility] carvediloL 2021-02 Yes [id number] 6.25mg Take 1 [facility] 6.25 mg 2-09 tablet by [facility] tablet 00:00: mouth (two) [facility] daily with meals. tolterodine 2021-02 Yes [id number] 2mg Take 1 [facility] 2 mg 24 2-09 capsule by [facility] hr capsule 00:00: mouth [place] 00 daily. [facility] carvediloL 2021-02 Yes [id number] 6.25mg Take 1 [facility] 6.25 mg 2-09 tablet by [facility] tablet 00:00: mouth (two) [facility] daily with meals. tolterodine 2021-02 Yes [id number] 2mg Take 1 [facility] 2 mg 24 2-09 capsule by [facility] hr capsule 00:00: mouth [place] 00 daily. [facility] carvediloL 2021-02 Yes [id number] 6.25mg Take 1 [facility] 6.25 mg 2-09 tablet by [facility] tablet 00:00: mouth (two) [facility] daily with meals. tolterodine 2021-02 Yes [id number] 2mg Take 1 [facility] [place] 2 mg 24 2-09 capsule by [facility] of hr capsule 00:00: mouth [place] 00 daily. [facility] carvediloL 2021-02 Yes [id number] 6.25mg Take 1 [facility] 6.25 mg 2-09 tablet by [facility] of tablet 00:00: mouth (two) Medical times Branch daily with meals. tolterodine 2021-02 Yes [id number] 2mg Take 1 [facility] [place] 2 mg 24 2-09 capsule by [facility] hr capsule 00:00: mouth [place] 00 daily. [facility] carvediloL 2021-02 Yes [id number] 6.25mg Take 1 [facility] 6.25 mg 2-09 tablet by [facility] of tablet 00:00: mouth (two) Medical times Branch daily with meals. tolterodine 2021-02 Yes [id number] 2mg Take 1 [facility] [place] 2 mg 24 2-09 capsule by [facility] of hr capsule 00:00: mouth 00 daily. Medical Branch carvediloL 2021-02 Yes [id number] 6.25mg Take 1 [facility] 6.25 mg 2-09 tablet by [facility] of tablet 00:00: mouth (two) Medical times Branch daily with meals. tolterodine 2021-02 Yes [id number] 2mg Take 1 [facility] [place] 2 mg 24 2-09 capsule by [facility] hr capsule 00:00: mouth 00 daily. Medical Branch carvediloL 2021-02 Yes [id number] 6.25mg Take 1 [facility] 6.25 mg 2-09 tablet by [facility] of tablet 00:00: mouth (two) Medical times Branch daily with meals. tolterodine 2021-02 Yes [id number] 2mg Take 1 [facility] [place] 2 mg 24 2-09 capsule by [facility] hr capsule 00:00: mouth 00 daily. Medical Branch carvediloL 2021-02 Yes [id number] 6.25mg Take 1 [facility] 6.25 mg 2-09 tablet by [facility] of tablet 00:00: mouth (two) Medical times Branch daily with meals. tolterodine 2021-02 Yes [id number] 2mg Take 1 [facility] [place] 2 mg 24 2-09 capsule by [facility] hr capsule 00:00: mouth 00 daily. Medical Branch carvediloL 2021-02 Yes [id number] 6.25mg Take 1 [facility] 6.25 mg 2-09 tablet by [facility] of tablet 00:00: mouth (two) Medical times Branch daily with meals. tolterodine 2021-02 Yes [id number] 2mg Take 1 [facility] [place] 2 mg 24 2-09 capsule by [facility] hr capsule 00:00: mouth 00 daily. Medical Branch carvediloL 2021-02 Yes [id number] 6.25mg Take 1 [facility] 6.25 mg 2-09 tablet by [facility] of tablet 00:00: mouth (two) Medical times Branch daily with meals. tolterodine 2021-02 Yes [id number] 2mg Take 1 [facility] [place] 2 mg 24 2-09 capsule by [facility] of hr capsule 00:00: mouth [place] 00 daily. [facility] carvediloL 2021-02 Yes [id number] 6.25mg Take 1 [facility] 6.25 mg 2-09 tablet by it[facility] of tablet 00:00: mouth (two) Medical times Branch daily with meals. tolterodine 2021-02 Yes [id number] 2mg Take 1 [facility] [place] 2 mg 24 2-09 capsule by [facility] of hr capsule 00:00: mouth 00 daily. Medical Branch carvediloL 2021-02 Yes [id number] 6.25mg Take 1 [facility] 6.25 mg 2-09 tablet by ity of tablet 00:00: mouth (two) Medical times Branch daily with meals. tolterodine 2021-02 Yes [id number] 2mg Take 1 [facility] [place] 2 mg 24 2-09 capsule by [facility] of hr capsule 00:00: mouth 00 daily. Medical Branch carvediloL 2021-02 Yes [id number] 6.25mg Take 1 [facility] 6.25 mg 2-09 tablet by ity of tablet 00:00: mouth (two) Medical times Branch daily with meals. tolterodine 2021-02 Yes [id number] 2mg Take 1 [facility] [place] 2 mg 24 2-09 capsule by [facility] of hr capsule 00:00: mouth 00 daily. Medical Branch carvediloL 2021-02 Yes [id number] 6.25mg Take 1 [facility] 6.25 mg 2-09 tablet by ity of tablet 00:00: mouth (two) Medical times Branch daily with meals. tolterodine 2021-02 Yes [id number] 2mg Take 1 [facility] [place] 2 mg 24 2-09 capsule by [facility] of hr capsule 00:00: mouth 00 daily. Medical Branch atorvastati 2021-02- No [id number] 20mg Take 1 [facility] n 20 mg 2-09 -28 tablet by ity of tablet 00:00: 00:00 mouth at [place] 00 :00 bedtime. Medical Branch atorvastati 2021-02- No [id number] 20mg Take 1 [facility] n 20 mg 2-09 -28 tablet by ity of tablet 00:00: 00:00 mouth at [place] 00 :00 bedtime. Medical Branch atorvastati 2021-02- No [id number] 20mg Take 1 [facility] n 20 mg 03-24 tablet by ity of tablet 00:00: 00:00 mouth at [place] 00 :00 bedtime. Medical Branch carvediloL 2021-02 Yes [id number] 12.5mg Take 1 [facility] 12.5 mg -11 tablet by ity of tablet 00:00: mouth 2 [place] 00 (two) Medical times Branch daily with meals. Additional refills per cardio carvediloL 2021-02 Yes [id number] 12.5mg Take 1 [facility] 12.5 mg -11 tablet by ity of tablet 00:00: mouth 2 [place] 00 (two) Medical times Branch daily with meals. Additional refills per cardio carvediloL 2021-02- No [id number] 12.5mg Take 1 [facility] 12.5 mg -11 01-21 tablet by ity of tablet 00:00: 00:00 mouth 2 [place] 00 :00 (two) Medical times Branch daily with meals. Additional refills per cardio carvediloL 2021-02- No [id number] 12.5mg Take 1 [facility] 12.5 mg -11 01-21 tablet by ity of tablet 00:00: 00:00 [...] mouth once [place] 00 daily with [facility] breakfast Branch spironolact 2021-02- No 25mg Take 25 mg [facility] one 25 mg 0-21 10-21 by mouth ity o f tablet 14:33: 00:00 daily. [place] 53 :00 [facility] Branch spironolact 2021-02- No 25mg Take 25 mg [facility] one 25 mg 0-21 10-21 by mouth ity o f tablet 14:33: 00:00 daily. [place] 53 :00 [facility] Branch benzonatate 2021-02 Yes [id number] 200mg Take 1 [facility] 200 mg 0-21 capsule by ity of capsule 00:00: mouth 3 [place] 00 (three) Medical times Branch daily as needed for Cough. atorvastati 2021-02 Yes [id number] 40mg Take 1 [facility] n 40 mg 0-21 tablet by ity of tablet 00:00: mouth at [place] 00 bedtime. Medical Branch losartan 25 2021-02 Yes [id number] 25mg Take 1 [facility] mg tablet 0-21 tablet by ity o f 00:00: mouth at [place] 00 bedtime. Medical Branch furosemide 2021-02 Yes [id number] 20mg Take 1 [facility] 20 mg 0-21 tablet by ity of tablet 00:00: mouth [place] 00 daily. Medical Branch spironolact 2021-02 Yes [id number] 25mg Take 1 [facility] one 25 mg 0-21 tablet by ity o f tablet 00:00: mouth [place] 00 daily. Medical Branch benzonatate 2021-02 Yes [id number] 200mg Take 1 [facility] 200 mg 0-21 capsule by ity of capsule 00:00: mouth 3 (three) Medical times Branch daily as needed for Cough. atorvastati 2021-02 Yes [id number] 40mg Take 1 [facility] n 40 mg 0-21 tablet by ity of tablet 00:00: mouth at [place] 00 bedtime. Medical Branch losartan 25 2021-02 Yes [id number] 25mg Take 1 [facility] mg tablet 0-21 tablet by ity o f 00:00: mouth at [place] 00 bedtime. Medical Branch furosemide 2021-02 Yes [id number] 20mg Take 1 [facility] 20 mg 0-21 tablet by ity of tablet 00:00: mouth [place] 00 daily. Medical Branch spironolact 2021-02 Yes [id number] 25mg Take 1 [facility] one 25 mg 0-21 tablet by ity o f tablet 00:00: mouth [place] 00 daily. Medical Branch benzonatate 2021-02 Yes [id number] 200mg Take 1 [facility] 200 mg 0-21 capsule by ity of capsule 00:00: mouth 3 (three) Medical times Branch daily as needed for Cough. atorvastati 2021-02 Yes [id number] 40mg Take 1 [facility] n 40 mg 0-21 tablet by ity of tablet 00:00: mouth at [place] 00 bedtime. Medical Branch losartan 25 2021-02 Yes [id number] 25mg Take 1 [facility] mg tablet 0-21 tablet by ity o f 00:00: mouth at [place] 00 bedtime. Medical Branch furosemide 2021-02 Yes [id number] 20mg Take 1 [facility] 20 mg 0-21 tablet by ity of tablet 00:00: mouth [place] 00 daily. Medical Branch spironolact 2021-02 Yes [id number] 25mg Take 1 [facility] one 25 mg 0-21 tablet by ity o f tablet 00:00: mouth [place] 00 daily. Medical Branch benzonatate 2021-02 Yes [id number] 200mg Take 1 [facility] 200 mg 0-21 capsule by ity of capsule 00:00: mouth 3 [place] 00 (three) Medical times Branch daily as needed for Cough. atorvastati 2021-02 Yes [id number] 40mg Take 1 [facility] n 40 mg 0-21 tablet by ity of tablet 00:00: mouth at [place] 00 bedtime. Medical Branch losartan 25 2021-02 Yes [id number] 25mg Take 1 [facility] mg tablet 0-21 tablet by ity o f 00:00: mouth at [place] 00 bedtime. Medical Branch furosemide 2021-02 Yes [id number] 20mg Take 1 [facility] 20 mg 0-21 tablet by ity of tablet 00:00: mouth [place] 00 daily. Medical Branch spironolact 2021-02 Yes [id number] 25mg Take 1 [facility] one 25 mg 0-21 tablet by ity o f tablet 00:00: mouth [place] 00 daily. Medical Branch benzonatate 2021-02 Yes [id number] 200mg Take 1 [facility] 200 mg 0-21 capsule by ity of capsule 00:00: mouth 3 00 (three) Medical times Branch daily as needed for Cough. atorvastati 2021-02 Yes [id number] 40mg Take 1 [facility] n 40 mg 0-21 tablet by ity of tablet 00:00: mouth at [place] 00 bedtime. Medical Branch losartan 25 2021-02 Yes [id number] 25mg Take 1 [facility] mg tablet 0-21 tablet by ity o f 00:00: mouth at [place] 00 bedtime. Medical Branch furosemide 2021-02 Yes [id number] 20mg Take 1 [facility] 20 mg 0-21 tablet by ity of tablet 00:00: mouth [place] 00 daily. Medical Branch spironolact 2021-02 Yes [id number] 25mg Take 1 [facility] one 25 mg 0-21 tablet by ity o f tablet 00:00: mouth [place] 00 daily. Medical Branch benzonatate 2021-02 Yes [id number] 200mg Take 1 [facility] 200 mg 0-21 capsule by ity of capsule 00:00: mouth 3 [place] 00 (three) Medical times Branch daily as needed for Cough. atorvastati 2021-02 Yes [id number] 40mg Take 1 [facility] n 40 mg 0-21 tablet by ity of tablet 00:00: mouth at [place] 00 bedtime. Medical Branch losartan 25 2021-02 Yes [id number] 25mg Take 1 [facility] mg tablet 0-21 tablet by ity o f 00:00: mouth at [place] 00 bedtime. Medical Branch furosemide 2021-02 Yes [id number] 20mg Take 1 [facility]ivers 20 mg 0-21 tablet by ity of tablet 00:00: mouth [place] 00 daily. Medical Branch spironolact 2021-02 Yes [id number] 25mg Take 1 [facility] one 25 mg 0-21 tablet by ity o f tablet 00:00: mouth [place] 00 daily. Medical Branch losartan 25 2021-02 Yes [id number] 25mg Take 1 [facility] mg tablet 0-21 tablet by ity o f 00:00: mouth at [place] 00 bedtime. Medical Branch furosemide 2021-02 Yes [id number] 20mg Take 1 [facility] 20 mg 0-21 tablet by ity of tablet 00:00: mouth [place] 00 daily. Medical Branch spironolact 2021-02 Yes [id number] 25mg Take 1 [facility] one 25 mg 0-21 tablet by ity o f tablet 00:00: mouth [place] 00 daily. Medical Branch losartan 25 2021-02 Yes [id number] 25mg Take 1 [facility] mg tablet 0-21 tablet by ity o f 00:00: mouth at [place] 00 bedtime. Medical Branch furosemide 2021-02 Yes [id number] 20mg Take 1 [facility] nivers 20 mg 0-21 tablet by ity of tablet 00:00: mouth [place] 00 daily. Medical Branch spironolact 2021-02 Yes [id number] 25mg Take 1 [facility] one 25 mg 0-21 tablet by ity o f tablet 00:00: mouth [place] 00 daily. Medical Branch losartan 25 2021-02 Yes [id number] 25mg Take 1 [facility] mg tablet 0-21 tablet by ity o f 00:00: mouth at [place] 00 bedtime. Medical Branch furosemide 2021-02 Yes [id number] 20mg Take 1 [facility] nivers 20 mg 0-21 tablet by ity of tablet 00:00: mouth [place] 00 daily. Medical Branch spironolact 2021-02 Yes [id number] 25mg Take 1 [facility] one 25 mg 0-21 tablet by ity o f tablet 00:00: mouth [place] 00 daily. Medical Branch losartan 25 2021-02 Yes [id number] 25mg Take 1 [facility] mg tablet 0-21 tablet by ity o f 00:00: mouth at [place] 00 bedtime. Medical Branch furosemide 2021-02 Yes [id number] 20mg Take 1 [facility] nivers 20 mg 0-21 tablet by ity of tablet 00:00: mouth [place] 00 daily. Medical Branch spironolact 2021-02 Yes [id number] 25mg Take 1 [facility] one 25 mg 0-21 tablet by ity o f tablet 00:00: mouth [place] 00 daily. Medical Branch spironolact 2021-02 Yes [id number] 25mg Take 1 [facility] one 25 mg 0-21 tablet by ity o f tablet 00:00: mouth [place] 00 daily. Medical Branch spironolact 2021-02 Yes [id number] 25mg Take 1 [facility] one 25 mg 0-21 tablet by ity o f tablet 00:00: mouth [place] 00 daily. Medical Branch spironolact 2021-02 Yes [id number] 25mg Take 1 [facility] one 25 mg 0-21 tablet by ity o f tablet 00:00: mouth [place] 00 daily. Medical Branch spironolact 2021-02 Yes [id number] 25mg Take 1 [facility] one 25 mg 0-21 tablet by ity o f tablet 00:00: mouth [place] 00 daily. Medical Branch spironolact 2021-02 Yes [id number] 25mg Take 1 [facility] one 25 mg 0-21 tablet by ity o f tablet 00:00: mouth [place] 00 daily. Medical Branch spironolact 2021-02 Yes [id number] 25mg Take 1 [facility] one 25 mg 0-21 tablet by ity o f tablet 00:00: mouth [place] 00 daily. Medical Branch spironolact 2021-02 Yes [id number] 25mg Take 1 [facility] one 25 mg 0-21 tablet by ity o f tablet 00:00: mouth [place] 00 daily. Medical Branch spironolact 2021-02 Yes [id number] 25mg Take 1 [facility] one 25 mg 0-21 tablet by ity o f tablet 00:00: mouth [place] 00 daily. Medical Branch spironolact 2021-02 Yes [id number] 25mg Take 1 [facility] one 25 mg 0-21 tablet by ity o f tablet 00:00: mouth [place] 00 daily. Medical Branch spironolact 2021-02 Yes [id number] 25mg Take 1 [facility] one 25 mg 0-21 tablet by ity o f tablet 00:00: mouth [place] 00 daily. Medical Branch spironolact 2021-02 Yes [id number] 25mg Take 1 [facility] one 25 mg 0-21 tablet by ity o f tablet 00:00: mouth [place] 00 daily. Medical Branch spironolact 2021-02 Yes [id number] 25mg Take 1 [facility] one 25 mg 0-21 tablet by ity o f tablet 00:00: mouth [place] 00 daily. Medical Branch spironolact 2021-02 Yes [id number] 25mg Take 1 [facility] one 25 mg 0-21 tablet by ity o f tablet 00:00: mouth [place] 00 daily. Medical Branch spironolact 2021-02 Yes [id number] 25mg Take 1 [facility] one 25 mg 0-21 tablet by ity o f tablet 00:00: mouth [place] 00 daily. Medical Branch spironolact 2021-02 Yes [id number] 25mg Take 1 [facility] one 25 mg 0-21 tablet by ity o f tablet 00:00: mouth [place] 00 daily. Medical Branch spironolact 2021-02 Yes [id number] 25mg Take 1 [facility] one 25 mg 0-21 tablet by ity o f tablet 00:00: mouth [place] 00 daily. Medical Branch spironolact 2021-02 Yes [id number] 25mg Take 1 [facility] one 25 mg 0-21 tablet by ity o f tablet 00:00: mouth [place] 00 daily. Medical Branch spironolact 2021-02 Yes [id number] 25mg Take 1 [facility] one 25 mg 0-21 tablet by ity o f tablet 00:00: mouth [place] 00 daily. Medical Branch spironolact 2021-02 Yes [id number] 25mg Take 1 [facility] one 25 mg 0-21 tablet by ity o f tablet 00:00: mouth [place] 00 daily. Medical Branch spironolact 2021-02 Yes [id number] 25mg Take 1 [facility] one 25 mg 0-21 tablet by ity o f tablet 00:00: mouth [place] 00 daily. Medical Branch spironolact 2021-02 Yes [id number] 25mg Take 1 [facility] one 25 mg 0-21 tablet by ity o f tablet 00:00: mouth [place] 00 daily. Medical Branch spironolact 2021-02 Yes [id number] 25mg Take 1 [facility] one 25 mg 0-21 tablet by ity o f tablet 00:00: mouth [place] 00 daily. [facility] Branch spironolact 2021-02 Yes [id number] 25mg Take 1 [facility] one 25 mg 0-21 tablet by ity o f tablet 00:00: mouth [place] 00 daily. [facility] Branch spironolact 2021-02 Yes [id number] 25mg Take 1 [facility] one 25 mg 0-21 tablet by ity o f tablet 00:00: mouth [place] 00 daily. [facility] Branch spironolact 2021-02- No [id number] 25mg Take 1 [facility] one 25 mg 0-21 04-12 tablet by ity of tablet 00:00: 00:00 mouth [place] 00 :00 daily. [facility] Branch spironolact 2021-02- No [id number] 25mg Take 1 [facility] one 25 mg 0-21 04-12 tablet by ity of tablet 00:00: 00:00 mouth [place] 00 :00 daily. [facility] Branch losartan 25 2021-02- No [id number] 25mg Take 1 [facility] mg tablet 0-21 -27 tablet by ity of 00:00: 00:00 mouth at [place] 00 :00 bedtime. [facility] Branch furosemide 2021-2022- No [id number] 20mg Take 1 [facility] 20 mg 0-21 -27 tablet by ity of tablet 00:00: 00:00 mouth [place] 00 :00 daily. [facility] Branch losartan 25 2021-02- No [id number] 25mg Take 1 [facility] mg tablet 0-21 -27 tablet by ity of 00:00: 00:00 mouth at [place] 00 :00 bedtime. Medical Branch furosemide 2021-02- No [id number] 20mg Take 1 [facility] 20 mg 0-21 -27 tablet by ity of tablet 00:00: 00:00 mouth [place] 00 :00 daily. [facility] Branch losartan 25 2021-02- No [id number] 25mg Take 1 [facility] mg tablet 0-21 -27 tablet by ity of 00:00: 00:00 mouth at [place] 00 :00 bedtime. [facility] Branch furosemide 2021-2022- No [id number] 20mg Take 1 [facility] 20 mg 0-21 -27 tablet by ity of tablet 00:00: 00:00 mouth [place] 00 :00 daily. Medical Branch losartan 25 2021-02- No [id number] 25mg Take 1 [facility] mg tablet 003-11 tablet by ity of 00:00: 00:00 mouth at [place] 00 :00 bedtime. Medical Branch furosemide 2021-02- No [id number] 20mg Take 1 [facility] 20 mg 0-03-11 tablet by ity of tablet 00:00: 00:00 mouth [place] 00 :00 daily. Medical Branch losartan 25 2021-02- No [id number] 25mg Take 1 [facility] mg tablet 003-11 tablet by ity of 00:00: 00:00 mouth at [place] 00 :00 bedtime. Medical Branch furosemide 2021-02- No [id number] 20mg Take 1 [facility] 20 mg 0-03-11 tablet by ity of tablet 00:00: 00:00 mouth [place] 00 :00 daily. Medical Branch losartan 25 2021-02- No [id number] 25mg Take 1 [facility] mg tablet 003-11 tablet by ity of 00:00: 00:00 mouth at [place] 00 :00 bedtime. Medical Branch furosemide 2021-02- No [id number] 20mg Take 1 [facility] 20 mg 0-03-11 tablet by ity of tablet 00:00: 00:00 mouth [place] 00 :00 daily. Medical Branch losartan 25 2021-02- No [id number] 25mg Take 1 [facility] mg tablet 003-11 tablet by ity of 00:00: 00:00 mouth at [place] 00 :00 bedtime. Medical Branch furosemide 2021-02- No [id number] 20mg Take 1 [facility] 20 mg 0-03-11 tablet by ity of tablet 00:00: 00:00 mouth [place] 00 :00 daily. Medical Branch benzonatate 2021-02- No [id number] 200mg Take 1 [facility] 200 mg 0-01-21 capsule by ity of capsule 00:00: 00:00 mouth 3 [place] 00 :00 (three) Medical times Branch daily as needed for Cough. atorvastati 2021-02- No [id number] 40mg Take 1 [facility] n 40 mg 0-02 02- tablet by ity of tablet 00:00: 00:00 mouth at [place] 00 :00 bedtime. Medical Branch benzonatate 2021-02- No [id number] 200mg Take 1 [facility] 200 mg 0-01-21 capsule by ity of capsule 00:00: 00:00 mouth 3 [place] 00 :00 (three) Medical times Branch daily as needed for Cough. atorvastati 2021-02- No [id number] 40mg Take 1 [facility] n 40 mg 0-02 02- tablet by ity of tablet 00:00: 00:00 mouth at [place] 00 :00 bedtime. Medical Branch Albuterol 2021- No 4{puff} Inhale 4 [facility] Sulfate 9-30 09-30 Puffs by [place] (VENTOLIN 15:42: 00:00 mouth two of HFA) 108 52 :00 times Medicin (90 Base) daily. e MCG/ACT AERS carvedilol Yes 12.5mg Take 12.5 [facility] (COREG) 9-30 mg by [place] 12.5 MG 14:53: mouth of tablet 41 daily. Medicin e carvedilol Yes 12.5mg Take 12.5 [facility] (COREG) 9-30 mg by [place] 12.5 MG 14:53: mouth of tablet 41 daily. Medicin e Albuterol Yes [id number] 4{puff} Inhale 4 [facility] Sulfate 9-30 Puffs by [place] (VENTOLIN 00:00: mouth two of HFA) 108 00 times Medicin (90 Base) daily. e MCG/ACT AERS Fluticasone Yes [id number] 1{puff} Inhale 1 [facility] -Salmeterol 9-30 Puff by Shanda weber (ADVAIR) 00:00: mouth of 250-50 00 every 12 Medicin MCG/ACT hours. e inhaler albuterol Yes [id number] 2.5mg Take 1 [facility] (PROVENTIL) 9-30 Ampule by [facility] (2.5 mg/3 00:00: nebulizati of mL) 0.083% 00 on every 4 Med icin nebulizer hours as e solution needed for Wheezing. Diclofenac Yes [id number] 5g Apply 5 g [facility] Sodium 1 % 9-30 topically Kristine ege GEL 00:00: every 6 of 00 hours as Medicin needed for e Pain. Albuterol Yes [id number] 4{puff} Inhale 4 [facility] Sulfate 9-30 Puffs by [facility] (VENTOLIN 00:00: mouth two of HFA) 108 00 times Medicin (90 Base) daily. e MCG/ACT AERS albuterol Yes [id number] 2.5mg Take 1 [facility] (PROVENTIL) 9-30 Ampule by [facility] (2.5 mg/3 00:00: nebulizati of mL) 0.083% 00 on every 4 Med icin nebulizer hours as e solution needed for Wheezing. Fluticasone 2022- No [id number] 1{puff} Inhale 1 Art -Salmeterol 11-12 02-10 Puff by Kristine spencer (ADVAIR) 00:00: 00:00 mouth of 250-50 00 :00 every 12 Medicin MCG/ACT hours. e inhaler Diclofenac 2022- No [id number] 5g Apply 5 g [facility] Sodium 1 % 11-12-10 topically Col [facility] GEL 00:00: 00:00 every 6 of 00 :00 hours as Medicin needed for e Pain. Melatonin 0 2021- No Take by [facility] 10 MG TABS 11-01 mouth. Paul e 10:19: 00:00 of 25 :00 Medicin e Magnesium 0 2021- No Take by [facility] 100 MG CAPS 11-01 mouth. Colle ge 10:19: 00:00 of 22 :00 Medicin e losartan 50 0 Yes [id number] 25mg Take 0.5 [facility] mg tablet 9-12 tablets by ity of 00:00: mouth [place] 00 every Medical evening. Branch losartan 50 0 Yes [id number] 25mg Take 0.5 [facility] mg tablet 9-12 tablets by ity of 00:00: mouth [place] 00 every Medical evening. Branch losartan 50 0 Yes [id number] 25mg Take 0.5 [facility] mg tablet 9-12 tablets by ity of 00:00: mouth [place] 00 every Medical evening. Branch losartan 50 0 Yes [id number] 25mg Take 0.5 [facility] mg tablet 9-12 tablets by ity of 00:00: mouth [place] 00 every Medical evening. Branch losartan 50 0 Yes [id number] 25mg Take 0.5 [facility] mg tablet 9-12 tablets by ity of 00:00: mouth [place] 00 every Medical evening. Branch losartan 50 2021-0 Yes [id number] 25mg Take 0.5 [facility] mg tablet 9-12 tablets by ity of 00:00: mouth [place] 00 every Medical evening. Branch losartan 50 2021-0 Yes [id number] 25mg Take 0.5 [facility] mg tablet 9-12 tablets by ity of 00:00: mouth [place] 00 every Medical evening. Branch losartan 50 0 Yes [id number] 25mg Take 0.5 [facility] mg tablet 9-12 tablets by ity of 00:00: mouth [place] 00 every Medical evening. Branch losartan 50 0 Yes [id number] 25mg Take 0.5 [facility] mg tablet 9-12 tablets by ity of 00:00: mouth [place] 00 every Medical evening. Branch losartan 50 0 Yes [id number] 25mg Take 0.5 [facility] mg tablet 9-12 tablets by ity of 00:00: mouth [place] 00 every Medical evening. Branch losartan 50 0 Yes [id number] 25mg Take 0.5 [facility] mg tablet 9-12 tablets by ity of 00:00: mouth [place] 00 every Medical evening. Branch losartan 50 0 Yes [id number] 25mg Take 0.5 [facility] mg tablet 9-12 tablets by ity of 00:00: mouth [place] 00 every Medical evening. Branch losartan 50 2021-0 Yes [id number] 25mg Take 0.5 [facility] mg tablet 9-12 tablets by ity of 00:00: mouth [place] 00 every Medical evening. Branch losartan 50 2021-0 2021- No [id number] 25mg Take 0.5 [facility] mg tablet 9-12 10-21 tablets by ity of 00:00: 00:00 mouth [place] 00 :00 every Medical evening. Branch losartan 50 2021-0 2021- No [id number] 25mg Take 0.5 [facility] mg tablet 9-12 10-21 tablets by ity of 00:00: 00:00 mouth [place] 00 :00 every Medical evening. Branch furosemide 2021-0 Yes 40mg Take 40 mg [facility] (LASIX) 40 8-28 by mouth [facility]le [facility] MG tablet 00:00: daily. of 00 Medicin e spironolact 2-0 Yes 25mg Take 25 mg [facility] one 8-28 by mouth [place] (ALDACTONE) 00:00: daily. of 25 MG 00 Medicin tablet e furosemide 2021-0 Yes 40mg Take 40 mg [facility] (LASIX) 40 8-28 by mouth [facility]le [facility] MG tablet 00:00: daily. of 00 Medicin e spironolact 2-0 Yes 25mg Take 25 mg [facility] one 8-28 by mouth [facility] (ALDACTONE) 00:00: daily. of 25 MG 00 Medicin tablet e furosemide 2021-0 2023- No 40mg Take 40 mg [facility] (LASIX) 40 8-28 02-10 by mouth Kristine ege MG tablet 00:00: 00:00 daily. of 00 :00 Medicin e spironolact 2021-0 2023- No 25mg Take 25 mg [facility] one 8-28 02-10 by mouth [facility] (ALDACTONE) 00:00: 00:00 daily. of 25 MG [...] :00 daily with Medical breakfast. Branch OXYBUTYNIN 2021-0 2021- No 10mg Take 10 mg [facility] CHLORIDE 08-2715 by mouth. ity o f ORAL 14:50: 00:00 Managed by [place] 14 :00 Dr. Cuenca Medical Branch losartan 50 2021-0 2021- No [id number] 50mg Take 1 [facility] mg tablet 08-27-12 tablet by ity of 00:00: 00:00 mouth [place] 00 :00 daily. Medical Branch losartan 50 2021-0 2021- No [id number] 50mg Take 1 [facility] mg tablet 3- 07-15 tablet by ity of 00:00: 00:00 mouth 2 [place] 00 :00 (two) Medical times Branch daily. Magnesium 2-0 Yes Take by [facility] 100 MG CAPS 3-21 mouth. Colleg e 10:29: Medicin e Melatonin 2-0 Yes Take by [facility] 10 MG TABS 3-21 mouth. [facility] 10:29: Medicin e furosemide 2021-0 Yes 40mg Take 1 [facility] rs 40 mg 3-17 tablet by ity of tablet 00:00: mouth [place] 00 daily. Medical Branch furosemide 2-0 Yes 40mg Take 1 [facility] rs 40 mg 3-17 tablet by ity of tablet 00:00: mouth [place] 00 daily. Medical Branch furosemide 2-0 Yes 40mg Take 1 [facility] rs 40 mg 3-17 tablet by ity of tablet 00:00: mouth [place] 00 daily. Medical Branch furosemide 2022-0 Yes 40mg Take 1 [facility] rs 40 mg 3-17 tablet by ity of tablet 00:00: mouth [place] 00 daily. Medical Branch furosemide 2-0 Yes 40mg Take 1 Unive rs 40 [...] mouth [place] 00 daily. Medical Branch furosemide Yes 40mg Take 1 [facility] rs 40 mg 3-17 tablet by ity of tablet 00:00: mouth [place] 00 daily. Medical Branch furosemide Yes 40mg Take 1 [facility] rs 40 mg 3-17 tablet by ity of tablet 00:00: mouth [place] 00 daily. Medical Branch furosemide 2021-2- No 40mg Take 1 [facility] ers 40 [...] mouth [place] 00 :00 daily. Medical Branch ATORVASTATI 2020-02 Yes [id number] 40mg TAKE 1 [facility] N 40 mg 2-13 TABLET BY ity of tablet 00:00: [facility] [place] [facility]-02 Yes [id number] 40mg TAKE 1 [facility] 40 mg 2-13 TABLET BY ity of tablet 00:00: MOUTH AT [place] [facility] Medical Branch ATORVASTA 2020-02 Yes [id number] 40mg TAKE 1 [facility] N 40 mg 2-13 TABLET BY ity of tablet 00:00: [facility] [place] [facility] 2020-02 Yes [id number] 40mg TAKE 1 [facility] N 40 mg 2-13 TABLET BY ity of tablet 00:00: MOUTH AT [place] [facility] Medical Branch ATORVASTA 2020-02 Yes [id number] 40mg TAKE 1 [facility] N 40 mg 2-13 TABLET BY ity of tablet 00:00: MOUTH AT [place] [facility] Medical Branch ATORVASTA 2020-02 Yes [id number] 40mg TAKE 1 [facility] N 40 mg 2-13 TABLET BY ity of tablet 00:00: MOUTH AT [place] [facility] Medical Branch ATORVASTA 2020-02 Yes [id number] 40mg TAKE 1 [facility] N 40 mg 2-13 TABLET BY ity of tablet 00:00: MOUTH AT [address] 2020-02 Yes [id number] 40mg TAKE 1 [facility] N 40 mg 2-13 TABLET BY ity of tablet 00:00: MOUTH AT [address] 2020-02 Yes [id number] 40mg TAKE 1 [facility] N 40 mg 2-13 TABLET BY ity of tablet 00:00: MOUTH AT [address] 2020-02 Yes [id number] 40mg TAKE 1 [facility] N 40 mg 2-13 TABLET BY ity of tablet 00:00: MOUTH AT [address] 2020-02 Yes [id number] 40mg TAKE 1 [facility] N 40 mg 2-13 TABLET BY ity of tablet 00:00: MOUTH AT [address] 2020-02 Yes [id number] 40mg TAKE 1 [facility] N 40 mg 2-13 TABLET BY ity of tablet 00:00: MOUTH AT [address] 2020-02 Yes [id number] 40mg TAKE 1 [facility] N 40 mg 2-13 TABLET BY ity of tablet 00:00: MOUTH AT [address] 2020-02 Yes [id number] 40mg TAKE 1 [facility] N 40 mg 2-13 TABLET BY ity of tablet 00:00: MOUTH AT [address] 2020-02- No [id number] 40mg TAKE 1 [facility] N 40 mg 2-13 10-21 TABLET BY ity of tablet 00:00: 00:00 MOUTH AT [place] 00 :00 [facility] 2020-02- No [id number] 40mg TAKE 1 [facility] N 40 mg 2-13 10-21 TABLET BY ity of tablet 00:00: 00:00 MOUTH AT [place] 00 :00 [facility] 2020-02- No [id number] 40mg TAKE 1 [facility] N 40 mg 2-13 10-21 TABLET BY ity of tablet 00:00: 00:00 MOUTH AT [place] 00 :00 [facility] azelastine 2020-02 Yes [id number] 1{spray Use 1 [facility] 137 mcg 2-02 } [place] ity of (0.1 %) 00:00: each [place] nasal spray 00 nostril 2 Med ical (two) Branch times daily. Use in each nostril as directed fluticasone 2020-02 Yes [id number] 2{puff} Inhale 2 [facility] propionate 2-02 Puffs 2 ity of (FLOVENT 00:00: (two) [place] HFA) 44 00 times Medical mcg/actuati daily. Branch on inhaler Rinse mouth after each use. azelastine 2020-02 Yes [id number] 1{spray Use 1 [facility] 137 mcg 2-02 } [place] in ity of (0.1 %) 00:00: each [place] nasal spray 00 nostril 2 Med ical (two) Branch times daily. Use in each nostril as directed fluticasone 2020-02 Yes [id number] 2{puff} Inhale 2 [facility] propionate 2-02 Puffs 2 ity of (FLOVENT 00:00: (two) [place] HFA) 44 00 times Medical mcg/actuati daily. Branch on inhaler Rinse mouth after each use. azelastine 2020-02 Yes [id number] 1{spray Use 1 [facility] 137 mcg 2-02 } [place] ity of (0.1 %) 00:00: each [place] nasal spray 00 nostril 2 Med ical (two) Branch times daily. Use in each nostril as directed fluticasone 2020-02 Yes [id number] 2{puff} Inhale 2 [facility] propionate 2-02 Puffs 2 ity of (FLOVENT 00:00: (two) [place] HFA) 44 00 times Medical mcg/actuati daily. Branch on inhaler Rinse mouth after each use. azelastine 2020-02 Yes [id number] 1{spray Use 1 [facility] 137 mcg 2-02 } [place] ity of (0.1 %) 00:00: each [place] nasal spray 00 nostril 2 Med ical (two) Branch times daily. Use in each nostril as directed fluticasone 2020-02 Yes [id number] 2{puff} Inhale 2 [facility] propionate 2-02 Puffs 2 ity of (FLOVENT 00:00: (two) [place] HFA) 44 00 times Medical mcg/actuati daily. Branch on inhaler Rinse mouth after each use. azelastine 2020-02 Yes [id number] 1{spray Use 1 [facility] 137 mcg 2-02 } [place] ity of (0.1 %) 00:00: each [place] nasal spray 00 nostril 2 Med ical (two) Branch times daily. Use in each nostril as directed fluticasone 2020-02 Yes [id number] 2{puff} Inhale 2 [facility] propionate 2-02 Puffs 2 ity of (FLOVENT 00:00: (two) [place] HFA) 44 00 times Medical mcg/actuati daily. Branch on inhaler Rinse mouth after each use. azelastine 2020-02 Yes [id number] 1{spray Use 1 [facility] 137 mcg 2-02 } [place] in ity of (0.1 %) 00:00: each [place] nasal spray 00 nostril 2 Med ical (two) Branch times daily. Use in each nostril as directed fluticasone 2020-02 Yes [id number] 2{puff} Inhale 2 [facility] propionate 2-02 Puffs 2 ity of (FLOVENT 00:00: (two) [place] HFA) 44 00 times Medical mcg/actuati daily. Branch on inhaler Rinse mouth after each use. azelastine 2020-02 Yes [id number] 1{spray Use 1 [facility] 137 mcg 2-02 } [place] in ity of (0.1 %) 00:00: each [place] nasal spray 00 nostril 2 Med ical (two) Branch times daily. Use in each nostril as directed fluticasone 2020-02 Yes [id number] 2{puff} Inhale 2 [facility] propionate 2-02 Puffs 2 ity of (FLOVENT 00:00: (two) [place] HFA) 44 00 times Medical mcg/actuati daily. Branch on inhaler Rinse mouth after each use. azelastine 2020-02 Yes [id number] 1{spray Use 1 [facility] 137 mcg 2-02 } [place] in ity of (0.1 %) 00:00: each [place] nasal spray 00 nostril 2 Med ical (two) Branch times daily. Use in each nostril as directed fluticasone 2020-02 Yes [id number] 2{puff} Inhale 2 [facility] propionate 2-02 Puffs 2 ity of (FLOVENT 00:00: (two) [place] HFA) 44 00 times Medical mcg/actuati daily. Branch on inhaler Rinse mouth after each use. azelastine 2020-02 Yes [id number] 1{spray Use 1 [facility] 137 mcg 2-02 } [place] in ity of (0.1 %) 00:00: each [place] nasal spray 00 nostril 2 Med ical (two) Branch times daily. Use in each nostril as directed fluticasone 2020-02 Yes [id number] 2{puff} Inhale 2 [facility] propionate 2-02 Puffs 2 ity of (FLOVENT 00:00: (two) [place] HFA) 44 00 times Medical mcg/actuati daily. Branch on inhaler Rinse mouth after each use. azelastine 2020-02 Yes [id number] 1{spray Use 1 [facility] 137 mcg 2-02 } [place] in ity of (0.1 %) 00:00: each [place] nasal spray 00 nostril 2 Med ical (two) Branch times daily. Use in each nostril as directed fluticasone 2020-02 Yes [id number] 2{puff} Inhale 2 [facility] propionate 2-02 Puffs 2 ity of (FLOVENT 00:00: (two) [place] HFA) 44 00 times Medical mcg/actuati daily. Branch on inhaler Rinse mouth after each use. azelastine 2020-02 Yes [id number] 1{spray Use 1 [facility] 137 mcg 2-02 } [place] in ity of (0.1 %) 00:00: each [place] nasal spray 00 nostril 2 Med ical (two) Branch times daily. Use in each nostril as directed fluticasone 2020-02 Yes [id number] 2{puff} Inhale 2 [facility] propionate 2-02 Puffs 2 ity of (FLOVENT 00:00: (two) [place] HFA) 44 00 times Medical mcg/actuati daily. Branch on inhaler Rinse mouth after each use. azelastine 2020-02 Yes [id number] 1{spray Use 1 [facility] 137 mcg 2-02 } [place] in ity of (0.1 %) 00:00: each [place] nasal spray 00 nostril 2 Med ical (two) Branch times daily. Use in each nostril as directed fluticasone 2020-02 Yes [id number] 2{puff} Inhale 2 [facility] propionate 2-02 Puffs 2 ity of (FLOVENT 00:00: (two) [place] HFA) 44 00 times Medical mcg/actuati daily. Branch on inhaler Rinse mouth after each use. azelastine 2020-02 Yes [id number] 1{spray Use 1 [facility] 137 mcg 2-02 } [place] in ity of (0.1 %) 00:00: each [place] nasal spray 00 nostril 2 Med ical (two) Branch times daily. Use in each nostril as directed fluticasone 2020-02 Yes [id number] 2{puff} Inhale 2 [facility] propionate 2-02 Puffs 2 ity of (FLOVENT 00:00: (two) [place] HFA) 44 00 times Medical mcg/actuati daily. Branch on inhaler Rinse mouth after each use. azelastine 2020-02 Yes [id number] 1{spray Use 1 [facility] 137 mcg 2-02 } [place] ity of (0.1 %) 00:00: each [place] nasal spray 00 nostril 2 Med ical (two) Branch times daily. Use in each nostril as directed fluticasone 2020-02 Yes [id number] 2{puff} Inhale 2 [facility] propionate 2-02 Puffs 2 ity of (FLOVENT 00:00: (two) [place] HFA) 44 00 times Medical mcg/actuati daily. Branch on inhaler Rinse mouth after each use. azelastine 2020-02 Yes [id number] 1{spray Use 1 [facility] 137 mcg 2-02 } [place] ity of (0.1 %) 00:00: each [place] nasal spray 00 nostril 2 Med ical (two) Branch times daily. Use in each nostril as directed fluticasone 2020-02 Yes [id number] 2{puff} Inhale 2 [facility] propionate 2-02 Puffs 2 ity of (FLOVENT 00:00: (two) [place] HFA) 44 00 times Medical mcg/actuati daily. Branch on inhaler Rinse mouth after each use. azelastine 2020-02 Yes [id number] 1{spray Use 1 [facility] 137 mcg 2-02 } [place] ity of (0.1 %) 00:00: each [place] nasal spray 00 nostril 2 Med ical (two) Branch times daily. Use in each nostril as directed fluticasone 2020-02 Yes [id number] 2{puff} Inhale 2 [facility] propionate 2-02 Puffs 2 ity of (FLOVENT 00:00: (two) [place] HFA) 44 00 times Medical mcg/actuati daily. Branch on inhaler Rinse mouth after each use. azelastine 2020-02 Yes [id number] 1{spray Use 1 [facility] 137 mcg 2-02 } [place] in ity of (0.1 %) 00:00: each [place] nasal spray 00 nostril 2 Med ical (two) Branch times daily. Use in each nostril as directed fluticasone 2020-02 Yes [id number] 2{puff} Inhale 2 [facility] propionate 2-02 Puffs 2 ity of (FLOVENT 00:00: (two) [place] HFA) 44 00 times Medical mcg/actuati daily. Branch on inhaler Rinse mouth after each use. azelastine 2020-02 Yes [id number] 1{spray Use 1 [facility] 137 mcg 2-02 } [place] in ity of (0.1 %) 00:00: each [place] nasal spray 00 nostril 2 Med ical (two) Branch times daily. Use in each nostril as directed fluticasone 2020-02 Yes [id number] 2{puff} Inhale 2 [facility] propionate 2-02 Puffs 2 ity of (FLOVENT 00:00: (two) [place] HFA) 44 00 times Medical mcg/actuati daily. Branch on inhaler Rinse mouth after each use. azelastine 2020-02 Yes [id number] 1{spray Use 1 [facility] 137 mcg 2-02 } [place] in ity of (0.1 %) 00:00: each [place] nasal spray 00 nostril 2 Med ical (two) Branch times daily. Use in each nostril as directed fluticasone 2020-02 Yes [id number] 2{puff} Inhale 2 [facility] propionate 2-02 Puffs 2 ity of (FLOVENT 00:00: (two) [place] HFA) 44 00 times Medical mcg/actuati daily. Branch on inhaler Rinse mouth after each use. azelastine 2020-02 Yes [id number] 1{spray Use 1 [facility] 137 mcg 2-02 } [place] in ity of (0.1 %) 00:00: each [place] nasal spray 00 nostril 2 Med ical (two) Branch times daily. Use in each nostril as directed fluticasone 2020-02 Yes [id number] 2{puff} Inhale 2 [facility] propionate 2-02 Puffs 2 ity of (FLOVENT 00:00: (two) [place] HFA) 44 00 times Medical mcg/actuati daily. Branch on inhaler Rinse mouth after each use. azelastine 2020-02 Yes [id number] 1{spray Use 1 [facility] 137 mcg 2-02 } [place] in ity of (0.1 %) 00:00: each [place] nasal spray 00 nostril 2 Med ical (two) Branch times daily. Use in each nostril as directed fluticasone 2020-02 Yes [id number] 2{puff} Inhale 2 [facility] propionate 2-02 Puffs 2 ity of (FLOVENT 00:00: (two) [place] HFA) 44 00 times Medical mcg/actuati daily. Branch on inhaler Rinse mouth after each use. azelastine 2020-02 Yes [id number] 1{spray Use 1 [facility] 137 mcg 2-02 } [place] in ity of (0.1 %) 00:00: each [place] nasal spray 00 nostril 2 Med ical (two) Branch times daily. Use in each nostril as directed fluticasone 2020-02 Yes [id number] 2{puff} Inhale 2 [facility] propionate 2-02 Puffs 2 ity of (FLOVENT 00:00: (two) [place] HFA) 44 00 times Medical mcg/actuati daily. Branch on inhaler Rinse mouth after each use. azelastine 2020-02 Yes [id number] 1{spray Use 1 [facility] 137 mcg 2-02 } [place] in ity of (0.1 %) 00:00: each [place] nasal spray 00 nostril 2 Med ical (two) Branch times daily. Use in each nostril as directed fluticasone 2020-02 Yes [id number] 2{puff} Inhale 2 [facility] propionate 2-02 Puffs 2 ity of (FLOVENT 00:00: (two) [place] HFA) 44 00 times Medical mcg/actuati daily. Branch on inhaler Rinse mouth after each use. azelastine 2020-02 Yes [id number] 1{spray Use 1 [facility] 137 mcg 2-02 } [place] in ity of (0.1 %) 00:00: each [place] nasal spray 00 nostril 2 Med ical (two) Branch times daily. Use in each nostril as directed fluticasone 2020-02 Yes [id number] 2{puff} Inhale 2 [facility] propionate 2-02 Puffs 2 ity of (FLOVENT 00:00: (two) [place] HFA) 44 00 times Medical mcg/actuati daily. Branch on inhaler Rinse mouth after each use. azelastine 2020-02 Yes [id number] 1{spray Use 1 [facility] 137 mcg 2-02 } [place] in ity of (0.1 %) 00:00: each [place] nasal spray 00 nostril 2 Med ical (two) Branch times daily. Use in each nostril as directed fluticasone 2020-02 Yes [id number] 2{puff} Inhale 2 [facility] propionate 2-02 Puffs 2 ity of (FLOVENT 00:00: (two) [place] HFA) 44 00 times Medical mcg/actuati daily. Branch on inhaler Rinse mouth after each use. azelastine 2020-02 Yes [id number] 1{spray Use 1 [facility] 137 mcg 2-02 } [place] in ity of (0.1 %) 00:00: each [place] nasal spray 00 nostril 2 Med ical (two) Branch times daily. Use in each nostril as directed fluticasone 2020-02 Yes [id number] 2{puff} Inhale 2 [facility] propionate 2-02 Puffs 2 ity of (FLOVENT 00:00: (two) [place] HFA) 44 00 times Medical mcg/actuati daily. Branch on inhaler Rinse mouth after each use. azelastine 2020-02 Yes [id number] 1{spray Use 1 [facility] 137 mcg 2-02 } [place] in ity of (0.1 %) 00:00: each [place] nasal spray 00 nostril 2 Med ical (two) Branch times daily. Use in each nostril as directed fluticasone 2020-02 Yes [id number] 2{puff} Inhale 2 [facility] propionate 2-02 Puffs 2 ity of (FLOVENT 00:00: (two) [place] HFA) 44 00 times Medical mcg/actuati daily. Branch on inhaler Rinse mouth after each use. azelastine 2020-02 Yes [id number] 1{spray Use 1 [facility] 137 mcg 2-02 } [place] in ity of (0.1 %) 00:00: each [place] nasal spray 00 nostril 2 Med ical (two) Branch times daily. Use in each nostril as directed fluticasone 2020-02 Yes [id number] 2{puff} Inhale 2 [facility] propionate 2-02 Puffs 2 ity of (FLOVENT 00:00: (two) [place] HFA) 44 00 times Medical mcg/actuati daily. Branch on inhaler Rinse mouth after each use. azelastine 2020-02 Yes [id number] 1{spray Use 1 [facility] 137 mcg 2-02 } [place] in ity of (0.1 %) 00:00: each [place] nasal spray 00 nostril 2 Med ical (two) Branch times daily. Use in each nostril as directed fluticasone 2020-02 Yes [id number] 2{puff} Inhale 2 [facility] propionate 2-02 Puffs 2 ity of (FLOVENT 00:00: (two) [place] HFA) 44 00 times Medical mcg/actuati daily. Branch on inhaler Rinse mouth after each use. azelastine 2020-02 Yes [id number] 1{spray Use 1 [facility] 137 mcg 2-02 } [place] in ity of (0.1 %) 00:00: each [place] nasal spray 00 nostril 2 Med ical (two) Branch times daily. Use in each nostril as directed fluticasone 2020-02 Yes [id number] 2{puff} Inhale 2 [facility] propionate 2-02 Puffs 2 ity of (FLOVENT 00:00: (two) [place] HFA) 44 00 times Medical mcg/actuati daily. Branch on inhaler Rinse mouth after each use. azelastine 2020-02 Yes [id number] 1{spray Use 1 [facility] 137 mcg 2-02 } [place] in ity of (0.1 %) 00:00: each [place] nasal spray 00 nostril 2 Med ical (two) Branch times daily. Use in each nostril as directed fluticasone 2020-02 Yes [id number] 2{puff} Inhale 2 [facility] propionate 2-02 Puffs 2 ity of (FLOVENT 00:00: (two) [place] HFA) 44 00 times Medical mcg/actuati daily. Branch on inhaler Rinse mouth after each use. azelastine 2020-02 Yes [id number] 1{spray Use 1 [facility] 137 mcg 2-02 } [place] in ity of (0.1 %) 00:00: each [place] nasal spray 00 nostril 2 Med ical (two) Branch times daily. Use in each nostril as directed fluticasone 2020-02 Yes [id number] 2{puff} Inhale 2 [facility] propionate 2-02 Puffs 2 ity of (FLOVENT 00:00: (two) [place] HFA) 44 00 times Medical mcg/actuati daily. Branch on inhaler Rinse mouth after each use. azelastine 2020-02 Yes [id number] 1{spray Use 1 [facility] 137 mcg 2-02 } [place] in ity of (0.1 %) 00:00: each [place] nasal spray 00 nostril 2 Med ical (two) Branch times daily. Use in each nostril as directed fluticasone 2020-02 Yes [id number] 2{puff} Inhale 2 [facility] propionate 2-02 Puffs 2 ity of (FLOVENT 00:00: (two) [place] HFA) 44 00 times Medical mcg/actuati daily. Branch on inhaler Rinse mouth after each use. azelastine 2020-02 Yes [id number] 1{spray Use 1 [facility] 137 mcg 2-02 } [place] in ity of (0.1 %) 00:00: each [place] nasal spray 00 nostril 2 Med ical (two) Branch times daily. Use in each nostril as directed fluticasone 2020-02 Yes [id number] 2{puff} Inhale 2 [facility] propionate 2-02 Puffs 2 ity of (FLOVENT 00:00: (two) [place] HFA) 44 00 times Medical mcg/actuati daily. Branch on inhaler Rinse mouth after each use. azelastine 2020-02 Yes [id number] 1{spray Use 1 [facility] 137 mcg 2-02 } [place] in ity of (0.1 %) 00:00: each [place] nasal spray 00 nostril 2 Med ical (two) Branch times daily. Use in each nostril as directed fluticasone 2020-02 Yes [id number] 2{puff} Inhale 2 [facility] propionate 2-02 Puffs 2 ity of (FLOVENT 00:00: (two) [place] HFA) 44 00 times Medical mcg/actuati daily. Branch on inhaler Rinse mouth after each use. azelastine 2020-02 Yes [id number] 1{spray Use 1 [facility] 137 mcg 2-02 } [place] in ity of (0.1 %) 00:00: each [place] nasal spray 00 nostril 2 Med ical (two) Branch times daily. Use in each nostril as directed fluticasone 2020-02 Yes [id number] 2{puff} Inhale 2 [facility] propionate 2-02 Puffs 2 ity of (FLOVENT 00:00: (two) [place] HFA) 44 00 times Medical mcg/actuati daily. Branch on inhaler Rinse mouth after each use. azelastine 2020-02 Yes [id number] 1{spray Use 1 [facility] 137 mcg 2-02 } [place] in ity of (0.1 %) 00:00: each [place] nasal spray 00 nostril 2 Med ical (two) Branch times daily. Use in each nostril as directed fluticasone 2020-02 Yes [id number] 2{puff} Inhale 2 [facility] propionate 2-02 Puffs 2 ity of (FLOVENT 00:00: (two) [place] HFA) 44 00 times Medical mcg/actuati daily. Branch on inhaler Rinse mouth after each use. azelastine 2020-02 Yes [id number] 1{spray Use 1 [facility] 137 mcg 2-02 } [place] in ity of (0.1 %) 00:00: each [place] nasal spray 00 nostril 2 Med ical (two) Branch times daily. Use in each nostril as directed fluticasone 2020-02 Yes [id number] 2{puff} Inhale 2 [facility] propionate 2-02 Puffs 2 ity of (FLOVENT 00:00: (two) [place] HFA) 44 00 times Medical mcg/actuati daily. Branch on inhaler Rinse mouth after each use. azelastine 2020-02 Yes [id number] 1{spray Use 1 [facility] 137 mcg 2-02 } [place] in ity of (0.1 %) 00:00: each [place] nasal spray 00 nostril 2 Med ical (two) Branch times daily. Use in each nostril as directed fluticasone 2020-02 Yes [id number] 2{puff} Inhale 2 [facility] propionate 2-02 Puffs 2 ity of (FLOVENT 00:00: (two) [place] HFA) 44 00 times Medical mcg/actuati daily. Branch on inhaler Rinse mouth after each use. azelastine 2020-02 Yes [id number] 1{spray Use 1 [facility] 137 mcg 2-02 } [place] in ity of (0.1 %) 00:00: each [place] nasal spray 00 nostril 2 Med ical (two) Branch times daily. Use in each nostril as directed fluticasone 2020-02 Yes [id number] 2{puff} Inhale 2 [facility] propionate 2-02 Puffs 2 ity of (FLOVENT 00:00: (two) [place] HFA) 44 00 times Medical mcg/actuati daily. Branch on inhaler Rinse mouth after each use. azelastine 2020-02 Yes [id number] 1{spray Use 1 [facility] 137 mcg 2-02 } [place] in ity of (0.1 %) 00:00: each [place] nasal spray 00 nostril 2 Med ical (two) Branch times daily. Use in each nostril as directed fluticasone 2020-02 Yes [id number] 2{puff} Inhale 2 [facility] propionate 2-02 Puffs 2 ity of (FLOVENT 00:00: (two) [place] HFA) 44 00 times Medical mcg/actuati daily. Branch on inhaler Rinse mouth after each use. azelastine 2020-02 Yes [id number] 1{spray Use 1 [facility] 137 mcg 2-02 } [place] in ity of (0.1 %) 00:00: each [place] nasal spray 00 nostril 2 Med ical (two) Branch times daily. Use in each nostril as directed fluticasone 2020-02 Yes [id number] 2{puff} Inhale 2 [facility] propionate 2-02 Puffs 2 ity of (FLOVENT 00:00: (two) [place] HFA) 44 00 times Medical mcg/actuati daily. Branch on inhaler Rinse mouth after each use. azelastine 2020-02 Yes [id number] 1{spray Use 1 [facility] 137 mcg 2-02 } [place] in ity of (0.1 %) 00:00: each [place] nasal spray 00 nostril 2 Med ical (two) Branch times daily. Use in each nostril as directed fluticasone 2020-02 Yes [id number] 2{puff} Inhale 2 [facility] propionate 2-02 Puffs 2 ity of (FLOVENT 00:00: (two) [place] HFA) 44 00 times Medical mcg/actuati daily. Branch on inhaler Rinse mouth after each use. azelastine 2020-02 Yes [id number] 1{spray Use 1 [facility] 137 mcg 2-02 } [place] in ity of (0.1 %) 00:00: each [place] nasal spray 00 nostril 2 Med ical (two) Branch times daily. Use in each nostril as directed fluticasone 2020-02 Yes [id number] 2{puff} Inhale 2 [facility] propionate 2-02 Puffs 2 ity of (FLOVENT 00:00: (two) [place] HFA) 44 00 times Medical mcg/actuati daily. Branch on inhaler Rinse mouth after each use. azelastine 2020-02 Yes [id number] 1{spray Use 1 [facility] 137 mcg 2-02 } [place] in ity of (0.1 %) 00:00: each [place] nasal spray 00 nostril 2 Med ical (two) Branch times daily. Use in each nostril as directed fluticasone 2020-02 Yes [id number] 2{puff} Inhale 2 [facility] propionate 2-02 Puffs 2 ity of (FLOVENT 00:00: (two) [place] HFA) 44 00 times Medical mcg/actuati daily. Branch on inhaler Rinse mouth after each use. azelastine 2020-02 Yes [id number] 1{spray Use 1 [facility] 137 mcg 2-02 } [place] in ity of (0.1 %) 00:00: each [place] nasal spray 00 nostril 2 Med ical (two) Branch times daily. Use in each nostril as directed fluticasone 2020-02 Yes [id number] 2{puff} Inhale 2 [facility] propionate 2-02 Puffs 2 ity of (FLOVENT 00:00: (two) [place] HFA) 44 00 times Medical mcg/actuati daily. Branch on inhaler Rinse mouth after each use. azelastine 2020-02 Yes [id number] 1{spray Use 1 [facility] 137 mcg 2-02 } [place] in ity of (0.1 %) 00:00: each [place] nasal spray 00 nostril 2 Med ical (two) Branch times daily. Use in each nostril as directed fluticasone 2020-02 Yes [id number] 2{puff} Inhale 2 [facility] propionate 2-02 Puffs 2 ity of (FLOVENT 00:00: (two) [place] HFA) 44 00 times Medical mcg/actuati daily. Branch on inhaler Rinse mouth after each use. azelastine 2020-02 Yes [id number] 1{spray Use 1 [facility] 137 mcg 2-02 } [place] in ity of (0.1 %) 00:00: each [place] nasal spray 00 nostril 2 Med ical (two) Branch times daily. Use in each nostril as directed fluticasone 2020-02 Yes [id number] 2{puff} Inhale 2 [facility] propionate 2-02 Puffs 2 ity of (FLOVENT 00:00: (two) [place] HFA) 44 00 times Medical mcg/actuati daily. Branch on inhaler Rinse mouth after each use. azelastine 2020-02 Yes [id number] 1{spray Use 1 [facility] 137 mcg 2-02 } [place] in ity of (0.1 %) 00:00: each [place] nasal spray 00 nostril 2 Med ical (two) Branch times daily. Use in each nostril as directed fluticasone 2020-02 Yes [id number] 2{puff} Inhale 2 [facility] propionate 2-02 Puffs 2 ity of (FLOVENT 00:00: (two) [place] HFA) 44 00 times Medical mcg/actuati daily. Branch on inhaler Rinse mouth after each use. azelastine 2020-02 Yes [id number] 1{spray Use 1 [facility] 137 mcg 2-02 } [place] in ity of (0.1 %) 00:00: each [place] nasal spray 00 nostril 2 Med ical (two) Branch times daily. Use in each nostril as directed fluticasone 2020-02 Yes [id number] 2{puff} Inhale 2 [facility] propionate 2-02 Puffs 2 ity of (FLOVENT 00:00: (two) [place] HFA) 44 00 times Medical mcg/actuati daily. Branch on inhaler Rinse mouth after each use. azelastine 2020-02 Yes [id number] 1{spray Use 1 [facility] 137 mcg 2-02 } [place] in ity of (0.1 %) 00:00: each [place] nasal spray 00 nostril 2 Med ical (two) Branch times daily. Use in each nostril as directed fluticasone 2020-02 Yes [id number] 2{puff} Inhale 2 [facility] propionate 2-02 Puffs 2 ity of (FLOVENT 00:00: (two) [place] HFA) 44 00 times Medical mcg/actuati daily. Branch on inhaler Rinse mouth after each use. azelastine 2020-02 Yes [id number] 1{spray Use 1 [facility] 137 mcg 2-02 } [place] in ity of (0.1 %) 00:00: each [place] nasal spray 00 nostril 2 Med ical (two) Branch times daily. Use in each nostril as directed fluticasone 2020-02 Yes [id number] 2{puff} Inhale 2 [facility] propionate 2-02 Puffs 2 ity of (FLOVENT 00:00: (two) [place] HFA) 44 00 times Medical mcg/actuati daily. Branch on inhaler Rinse mouth after each use. azelastine 2020-02 Yes [id number] 1{spray Use 1 [facility] 137 mcg 2-02 } [place] in ity of (0.1 %) 00:00: each [place] nasal spray 00 nostril 2 Med ical (two) Branch times daily. Use in each nostril as directed fluticasone 2020-02 Yes [id number] 2{puff} Inhale 2 [facility] propionate 2-02 Puffs 2 ity of (FLOVENT 00:00: (two) [place] [facility]FA) 44 00 times Medical mcg/actuati daily. Branch on inhaler Rinse mouth after each use. azelastine 2020-02 Yes [id number] 1{spray Use 1 [facility] 137 mcg 2-02 } [place] [facility] of (0.1 %) 00:00: each [place] nasal spray 00 nostril 2 Med ical (two) Branch times daily. Use in each nostril as directed fluticasone 2020-02 Yes [id number] 2{puff} Inhale 2 [facility] propionate 2-02 Puffs 2 ity of (FLOVENT 00:00: (two) [place] HFA) 44 00 times Medical mcg/actuati daily. Branch on inhaler Rinse mouth after each use. azelastine 2020-02 Yes [id number] 1{spray Use 1 [facility] 137 mcg 2-02 } [place] [facility] of (0.1 %) 00:00: each [place] nasal spray 00 nostril 2 Med ical (two) Branch times daily. Use in each nostril as directed fluticasone 2020-02 Yes [id number] 2{puff} Inhale 2 [facility] propionate 2-02 Puffs 2 ity of (FLOVENT 00:00: (two) [place] HFA) 44 00 times Medical mcg/actuati daily. Branch on inhaler Rinse mouth after each use. azelastine 2020-02 Yes [id number] 1{spray Use 1 [facility] 137 mcg 2-02 } [place] [facility] of (0.1 %) 00:00: each [place] nasal spray 00 nostril 2 Med ical (two) Branch times daily. Use in each nostril as directed fluticasone 2020-02 Yes [id number] 2{puff} Inhale 2 [facility] propionate 2-02 Puffs 2 ity of (FLOVENT 00:00: (two) [place] HFA) 44 00 times Medical mcg/actuati daily. Branch on inhaler Rinse mouth after each use. azelastine 2020-02 Yes [id number] 1{spray Use 1 [facility] 137 mcg 2-02 } [place] [facility] of (0.1 %) 00:00: each [place] nasal spray 00 nostril 2 Med ical (two) Branch times daily. Use in each nostril as directed fluticasone 2020-02 Yes [id number] 2{puff} Inhale 2 [facility] propionate 2-02 Puffs 2 ity of (FLOVENT 00:00: (two) [place] HFA) 44 00 times Medical mcg/actuati daily. Branch on inhaler Rinse mouth after each use. azelastine 2020-02 Yes [id number] 1{spray Use 1 [facility] 137 mcg 2-02 } [place] [facility] of (0.1 %) 00:00: each [place] nasal spray 00 nostril 2 Med ical (two) Branch times daily. Use in each nostril as directed fluticasone 2020-02 Yes [id number] 2{puff} Inhale 2 [facility] propionate 2-02 Puffs 2 ity of (FLOVENT 00:00: (two) [place] HFA) 44 00 times Medical mcg/actuati daily. Branch on inhaler Rinse mouth after each use. azelastine 2020-02 Yes [id number] 1{spray Use 1 [facility] 137 mcg 2-02 } [place] [facility] of (0.1 %) 00:00: each [place] nasal spray 00 nostril 2 Med ical (two) Branch times daily. Use in each nostril as directed fluticasone 2020-02 Yes [id number] 2{puff} Inhale 2 [facility] propionate 2-02 Puffs 2 ity of (FLOVENT 00:00: (two) [place] [facility]FA) 44 00 times Medical mcg/actuati daily. Branch on inhaler Rinse mouth after each use. azelastine 2020-02 Yes [id number] 1{spray Use 1 [facility] 137 mcg 2-02 } [place] [facility] of (0.1 %) 00:00: each [place] nasal spray 00 nostril 2 Med ical (two) Branch times daily. Use in each nostril as directed fluticasone 2020-02 Yes [id number] 2{puff} Inhale 2 [facility] propionate 2-02 Puffs 2 ity of (FLOVENT 00:00: (two) [place] HFA) 44 00 times Medical mcg/actuati daily. Branch on inhaler Rinse mouth after each use. azelastine 2020-02 Yes [id number] 1{spray Use 1 [facility] 137 mcg 2-02 } [place] [facility] of (0.1 %) 00:00: each [place] nasal spray 00 nostril 2 Med ical (two) Branch times daily. Use in each nostril as directed fluticasone 2020-02 Yes [id number] 2{puff} Inhale 2 [facility] propionate 2-02 Puffs 2 ity of (FLOVENT 00:00: (two) [place] [facility]FA) 44 00 times Medical mcg/actuati daily. Branch on inhaler Rinse mouth after each use. azelastine 2020-02 Yes [id number] 1{spray Use 1 [facility] 137 mcg 2-02 } [place] [facility] of (0.1 %) 00:00: each [place] nasal spray 00 nostril 2 Med ical (two) Branch times daily. Use in each nostril as directed fluticasone 2020-02 Yes [id number] 2{puff} Inhale 2 [facility] propionate 2-02 Puffs 2 ity of (FLOVENT 00:00: (two) [place] [facility]FA) 44 00 times Medical mcg/actuati daily. Branch on inhaler Rinse mouth after each use. azelastine 2020-02 Yes [id number] 1{spray Use 1 [facility] 137 mcg 2-02 } [place] [facility] of (0.1 %) 00:00: each [place] nasal spray 00 nostril 2 Med ical (two) Branch times daily. Use in each nostril as directed fluticasone 2020-02 Yes [id number] 2{puff} Inhale 2 [facility] propionate 2-02 Puffs 2 ity of (FLOVENT 00:00: (two) [place] [facility]FA) 44 00 times Medical mcg/actuati daily. Branch on inhaler Rinse mouth after each use. azelastine 2020-02 Yes [id number] 1{spray Use 1 [facility] 137 mcg 2-02 } [place] [facility] of (0.1 %) 00:00: each [place] nasal spray 00 nostril 2 Med ical (two) Branch times daily. Use in each nostril as directed fluticasone 2020-02 Yes [id number] 2{puff} Inhale 2 [facility] propionate 2-02 Puffs 2 ity of (FLOVENT 00:00: (two) [place] [facility]FA) 44 00 times Medical mcg/actuati daily. Branch on inhaler Rinse mouth after each use. azelastine 2020-02 Yes [id number] 1{spray Use 1 [facility] 137 mcg 2-02 } [place] [facility] of (0.1 %) 00:00: each [place] nasal spray 00 nostril 2 Med ical (two) Branch times daily. Use in each nostril as directed fluticasone 2020-02 Yes [id number] 2{puff} Inhale 2 [facility] propionate 2-02 Puffs 2 ity of (FLOVENT 00:00: (two) [place] [facility]FA) 44 00 times Medical mcg/actuati daily. Branch on inhaler Rinse mouth after each use. azelastine 2020-02 Yes [id number] 1{spray Use 1 [facility] 137 mcg 2-02 } [place] [facility] of (0.1 %) 00:00: each [place] nasal spray 00 nostril 2 Med ical (two) Branch times daily. Use in each nostril as directed fluticasone 2020-02 Yes [id number] 2{puff} Inhale 2 [facility] propionate 2-02 Puffs 2 ity of (FLOVENT 00:00: (two) [place] [facility]FA) 44 00 times Medical mcg/actuati daily. Branch on inhaler Rinse mouth after each use. azelastine 2020-02 Yes [id number] 1{spray Use 1 [facility] 137 mcg 2-02 } [place] [facility] of (0.1 %) 00:00: each [place] nasal spray 00 nostril 2 Med ical (two) Branch times daily. Use in each nostril as directed fluticasone 2020-02 Yes [id number] 2{puff} Inhale 2 [facility] propionate 2-02 Puffs 2 ity of (FLOVENT 00:00: (two) [place] [facility]FA) 44 00 times Medical mcg/actuati daily. Branch on inhaler Rinse mouth after each use. azelastine 2020-02 Yes [id number] 1{spray Use 1 [facility] 137 mcg 2-02 } [place] [facility] of (0.1 %) 00:00: each [place] nasal spray 00 nostril 2 Med ical (two) Branch times daily. Use in each nostril as directed fluticasone 2020-02 Yes [id number] 2{puff} Inhale 2 [facility] propionate 2-02 Puffs 2 ity of (FLOVENT 00:00: (two) [place] [facility]FA) 44 00 times Medical mcg/actuati daily. Branch on inhaler Rinse mouth after each use. azelastine 2020-02 Yes [id number] 1{spray Use 1 [facility] 137 mcg 2-02 } [place] [facility] of (0.1 %) 00:00: each [place] nasal spray 00 nostril 2 Med ical (two) Branch times daily. Use in each nostril as directed fluticasone 2020-02 Yes [id number] 2{puff} Inhale 2 [facility] propionate 2-02 Puffs 2 ity of (FLOVENT 00:00: (two) [place] [facility]FA) 44 00 times Medical mcg/actuati daily. Branch on inhaler Rinse mouth after each use. azelastine 2020-02 Yes [id number] 1{spray Use 1 [facility] 137 mcg 2-02 } [place] [facility] of (0.1 %) 00:00: each [place] nasal spray 00 nostril 2 Med ical (two) Branch times daily. Use in each nostril as directed fluticasone 2020-02 Yes [id number] 2{puff} Inhale 2 [facility] propionate 2-02 Puffs 2 ity of (FLOVENT 00:00: (two) [place] [facility]FA) 44 00 times Medical mcg/actuati daily. Branch on inhaler Rinse mouth after each use. azelastine 2020-02 Yes [id number] 1{spray Use 1 [facility] 137 mcg 2-02 } [place] [facility] of (0.1 %) 00:00: each [place] nasal spray 00 nostril 2 Med ical (two) Branch times daily. Use in each nostril as directed fluticasone 2020-02 Yes [id number] 2{puff} Inhale 2 [facility] propionate 2-02 Puffs 2 ity of (FLOVENT 00:00: (two) [place] [facility]FA) 44 00 times Medical mcg/actuati daily. Branch on inhaler Rinse mouth after each use. azelastine 2020-02 Yes [id number] 1{spray Use 1 [facility] 137 mcg 2-02 } [place] [facility] of (0.1 %) 00:00: each [place] nasal spray 00 nostril 2 Med ical (two) Branch times daily. Use in each nostril as directed fluticasone 2020-02 Yes [id number] 2{puff} Inhale 2 [facility] propionate 2-02 Puffs 2 ity of (FLOVENT 00:00: (two) [place] [facility]FA) 44 00 times Medical mcg/actuati daily. Branch on inhaler Rinse mouth after each use. azelastine 2020-02 Yes [id number] 1{spray Use 1 [facility] 137 mcg 2-02 } [place] [facility] of (0.1 %) 00:00: each [place] nasal spray 00 nostril 2 Med ical (two) Branch times daily. Use in each nostril as directed fluticasone 2020-02 Yes [id number] 2{puff} Inhale 2 [facility] propionate 2-02 Puffs 2 ity of (FLOVENT 00:00: (two) [place] [facility]FA) 44 00 times Medical mcg/actuati daily. Branch on inhaler Rinse mouth after each use. azelastine 2020-02 Yes [id number] 1{spray Use 1 [facility] 137 mcg 2-02 } [place] [facility] of (0.1 %) 00:00: each [place] nasal spray 00 nostril 2 Med ical (two) Branch times daily. Use in each nostril as directed fluticasone 2020-02 Yes [id number] 2{puff} Inhale 2 [facility] propionate 2-02 Puffs 2 ity of (FLOVENT 00:00: (two) [place] [facility]FA) 44 00 times Medical mcg/actuati daily. Branch on inhaler Rinse mouth after each use. azelastine 2020-02 Yes [id number] 1{spray Use 1 [facility] 137 mcg 2-02 } [place] [facility] of (0.1 %) 00:00: each [place] nasal spray 00 nostril 2 Med ical (two) Branch times daily. Use in each nostril as directed fluticasone 2020-02 Yes [id number] 2{puff} Inhale 2 [facility] propionate 2-02 Puffs 2 ity of (FLOVENT 00:00: (two) [place] [facility]FA) 44 00 times Medical mcg/actuati daily. Branch on inhaler Rinse mouth after each use. azelastine 2020-02 Yes [id number] 1{spray Use 1 [facility] 137 mcg 2-02 } [place] [facility] of (0.1 %) 00:00: each [place] nasal spray 00 nostril 2 Med ical (two) Branch times daily. Use in each nostril as directed fluticasone 2020-02 Yes [id number] 2{puff} Inhale 2 [facility] propionate 2-02 Puffs 2 ity of (FLOVENT 00:00: (two) [place] [facility]FA) 44 00 times Medical mcg/actuati daily. Branch on inhaler Rinse mouth after each use. azelastine 2020-02 Yes [id number] 1{spray Use 1 [facility] 137 mcg 2-02 } [place] [facility] of (0.1 %) 00:00: each [place] nasal spray 00 nostril 2 Med ical (two) Branch times daily. Use in each nostril as directed fluticasone 2020-02 Yes [id number] 2{puff} Inhale 2 [facility] propionate 2-02 Puffs 2 ity of (FLOVENT 00:00: (two) [place] [facility]FA) 44 00 times Medical mcg/actuati daily. Branch on inhaler Rinse mouth after each use. azelastine 2020-02 Yes [id number] 1{spray Use 1 [facility] 137 mcg 2-02 } [place] [facility] of (0.1 %) 00:00: each [place] nasal spray 00 nostril 2 Med ical (two) Branch times daily. Use in each nostril as directed fluticasone 2020-02 Yes [id number] 2{puff} Inhale 2 [facility] propionate 2-02 Puffs 2 ity of (FLOVENT 00:00: (two) [place] HFA) 44 00 times Medical mcg/actuati daily. Branch on inhaler Rinse mouth after each use. azelastine 2020-02 Yes [id number] 1{spray Use 1 [facility] 137 mcg 2-02 } [place] [facility] of (0.1 %) 00:00: each [place] nasal spray 00 nostril 2 Med ical (two) Branch times daily. Use in each nostril as directed fluticasone 2020-02 Yes [id number] 2{puff} Inhale 2 [facility] propionate 2-02 Puffs 2 ity of (FLOVENT 00:00: (two) [place] [facility]FA) 44 00 times Medical mcg/actuati daily. Branch on inhaler Rinse mouth after each use. azelastine 2020-02 Yes [id number] 1{spray Use 1 [facility] 137 mcg 2-02 } [place] [facility] of (0.1 %) 00:00: each [place] nasal spray 00 nostril 2 Med ical (two) Branch times daily. Use in each nostril as directed fluticasone 2020-02 Yes [id number] 2{puff} Inhale 2 [facility] propionate 2-02 Puffs 2 ity of (FLOVENT 00:00: (two) [place] [facility]FA) 44 00 times Medical mcg/actuati daily. Branch on inhaler Rinse mouth after each use. azelastine 2020-02 Yes [id number] 1{spray Use 1 [facility] 137 mcg 2-02 } [place] [facility] of (0.1 %) 00:00: each [place] nasal spray 00 nostril 2 Med ical (two) Branch times daily. Use in each nostril as directed fluticasone 2020-02 Yes [id number] 2{puff} Inhale 2 [facility] propionate 2-02 Puffs 2 ity of (FLOVENT 00:00: (two) [place] [facility]FA) 44 00 times Medical mcg/actuati daily. Branch on inhaler Rinse mouth after each use. azelastine 2020-02 Yes [id number] 1{spray Use 1 [facility] 137 mcg 2-02 } [place] in [facility] of (0.1 %) 00:00: each [place] nasal spray 00 nostril 2 Med ical (two) Branch times daily. Use in each nostril as directed fluticasone 2020-02 Yes [id number] 2{puff} Inhale 2 [facility] propionate 2-02 Puffs 2 ity of (FLOVENT 00:00: (two) [place] [facility]FA) 44 00 times Medical mcg/actuati daily. Branch on inhaler Rinse mouth after each use. azelastine 2020-02 Yes [id number] 1{spray Use 1 [facility] 137 mcg 2-02 } [place] [facility] of (0.1 %) 00:00: each [place] nasal spray 00 nostril 2 Med ical (two) Branch times daily. Use in each nostril as directed fluticasone 2020-02 Yes [id number] 2{puff} Inhale 2 [facility] propionate 2-02 Puffs 2 ity of (FLOVENT 00:00: (two) [place] [facility]FA) 44 00 times Medical mcg/actuati daily. Branch on inhaler Rinse mouth after each use. azelastine 2020-02 Yes [id number] 1{spray Use 1 [facility] 137 mcg 2-02 } [place] in [facility] of (0.1 %) 00:00: each [place] nasal spray 00 nostril 2 Med ical (two) Branch times daily. Use in each nostril as directed fluticasone 2020-02 Yes [id number] 2{puff} Inhale 2 [facility] propionate 2-02 Puffs 2 ity of (FLOVENT 00:00: (two) [place] [facility]FA) 44 00 times Medical mcg/actuati daily. Branch on inhaler Rinse mouth after each use. azelastine 2020-02 Yes [id number] 1{spray Use 1 [facility] 137 mcg 2-02 } [place] in [facility] of (0.1 %) 00:00: each [place] nasal spray 00 nostril 2 Med ical (two) Branch times daily. Use in each nostril as directed fluticasone 2020-02 Yes [id number] 2{puff} Inhale 2 [facility] propionate 2-02 Puffs 2 ity of (FLOVENT 00:00: (two) [place] [facility]FA) 44 00 times Medical mcg/actuati daily. Branch on inhaler Rinse mouth after each use. azelastine 2020-02 Yes [id number] 1{spray Use 1 [facility] 137 mcg 2-02 } [place] in [facility] of (0.1 %) 00:00: each [place] nasal spray 00 nostril 2 Med ical (two) Branch times daily. Use in each nostril as directed fluticasone 2020-02 Yes [id number] 2{puff} Inhale 2 [facility] propionate 2-02 Puffs 2 ity of (FLOVENT 00:00: (two) [place] [facility]FA) 44 00 times Medical mcg/actuati daily. Branch on inhaler Rinse mouth after each use. azelastine 2020-02 Yes [id number] 1{spray Use 1 [facility] 137 mcg 2-02 } [place] in [facility] of (0.1 %) 00:00: each [place] nasal spray 00 nostril 2 Med ical (two) Branch times daily. Use in each nostril as directed fluticasone 2020-02 Yes [id number] 2{puff} Inhale 2 [facility] propionate 2-02 Puffs 2 ity of (FLOVENT 00:00: (two) [place] [facility]FA) 44 00 times Medical mcg/actuati daily. Branch on inhaler Rinse mouth after each use. azelastine 2020-02 Yes [id number] 1{spray Use 1 [facility] 137 mcg 2-02 } [place] in [facility] of (0.1 %) 00:00: each [place] nasal spray 00 nostril 2 Med ical (two) Branch times daily. Use in each nostril as directed fluticasone 2020-02 Yes [id number] 2{puff} Inhale 2 [facility] propionate 2-02 Puffs 2 ity of (FLOVENT 00:00: (two) [place] [facility]FA) 44 00 times Medical mcg/actuati daily. Branch on inhaler Rinse mouth after each use. azelastine 2020-02 Yes [id number] 1{spray Use 1 [facility] 137 mcg 2-02 } [place] in [facility] of (0.1 %) 00:00: each [place] nasal spray 00 nostril 2 Med ical (two) Branch times daily. Use in each nostril as directed fluticasone 2020-02 Yes [id number] 2{puff} Inhale 2 [facility] propionate 2-02 Puffs 2 ity of (FLOVENT 00:00: (two) [place] [facility]FA) 44 00 times Medical mcg/actuati daily. Branch on inhaler Rinse mouth after each use. azelastine 2020-02 Yes [id number] 1{spray Use 1 [facility] 137 mcg 2-02 } [place] in [facility] of (0.1 %) 00:00: each [place] nasal spray 00 nostril 2 Med ical (two) Branch times daily. Use in each nostril as directed fluticasone 2020-02 Yes [id number] 2{puff} Inhale 2 [facility] propionate 2-02 Puffs 2 ity of (FLOVENT 00:00: (two) [place] [facility]FA) 44 00 times Medical mcg/actuati daily. Branch on inhaler Rinse mouth after each use. azelastine 2020-02 Yes [id number] 1{spray Use 1 [facility] 137 mcg 2-02 } [place] in [facility] of (0.1 %) 00:00: each [place] nasal spray 00 nostril 2 Med ical (two) Branch times daily. Use in each nostril as directed fluticasone 2020-02 Yes [id number] 2{puff} Inhale 2 [facility] propionate 2-02 Puffs 2 ity of (FLOVENT 00:00: (two) [place] [facility]FA) 44 00 times Medical mcg/actuati daily. Branch on inhaler Rinse mouth after each use. azelastine 2020-02 Yes [id number] 1{spray Use 1 [facility] 137 mcg 2-02 } [place] in [facility] of (0.1 %) 00:00: each [place] nasal spray 00 nostril 2 Med ical (two) Branch times daily. Use in each nostril as directed fluticasone 2020-02 Yes [id number] 2{puff} Inhale 2 [facility] propionate 2-02 Puffs 2 ity of (FLOVENT 00:00: (two) [place] HFA) 44 00 times Medical mcg/actuati daily. Branch on inhaler Rinse mouth after each use. azelastine 2020-02 Yes [id number] 1{spray Use 1 [facility] 137 mcg 2-02 } [place] in [facility] of (0.1 %) 00:00: each [place] nasal spray 00 nostril 2 Med ical (two) Branch times daily. Use in each nostril as directed fluticasone 2020-02 Yes [id number] 2{puff} Inhale 2 [facility] propionate 2-02 Puffs 2 ity of (FLOVENT 00:00: (two) [place] [facility]FA) 44 00 times Medical mcg/actuati daily. Branch on inhaler Rinse mouth after each use. mirtazapine 2020-02- No [id number] 7.5mg Take 1 [facility] 7.5 mg 03-17 07-15 tablet by ity of tablet 00:00: 00:00 mouth at [place] 00 :00 bedtime. Medical Branch Magnesium 2020-02 Yes Take by [facility] 100 MG CAPS 1-10 mouth. Paul dias 15:46: of 22 Medicin e Melatonin 2020-02 Yes Take by [facility] 10 MG TABS 1-10 mouth. Maria Guadalupe 15:46: of 22 Medicin e oxybutynin 2020-02 Yes 10mg Take 1 [facility] (DITROPAN 1-10 Tablet by Shanda SHEPPARD) 10 MG 00:00: mouth of [facility] tablet 00 daily. Medicin e oxybutynin 2020-02 Yes 10mg Take 1 [facility] (DITROPAN 1-10 Tablet by Shanda tia XL) 10 MG 00:00: mouth of [facility] tablet 00 daily. Medicin e oxybutynin 2020-02- No 10mg Take 1 [facility] (DITROPAN 1-10 -19 Tablet by Kristine kaylynne XL) 10 MG 00:00: 00:00 mouth of [facility] tablet 00 :00 daily. Medicin e albuterol Yes [id number] 2{puff} Inhale 2 [facility] (PROAIR 9-03 Puffs ity of HFA) 90 00:00: every 6 [place] mcg/actuati 00 (six) Medical on inhaler hours as Branc h needed for Wheezing or Shortness of Breath. albuterol Yes [id number] 2{puff} Inhale 2 [facility] (PROAIR 9-03 Puffs ity of HFA) 90 00:00: every 6 [place] mcg/actuati 00 (six) Medical on inhaler hours as Branc h needed for Wheezing or Shortness of Breath. albuterol Yes [id number] 2{puff} Inhale 2 [facility] (PROAIR 9-03 Puffs ity of HFA) 90 00:00: every 6 [place] mcg/actuati 00 (six) Medical on inhaler hours as Branc h needed for Wheezing or Shortness of Breath. albuterol Yes [id number] 2{puff} Inhale 2 [facility] (PROAIR 9-03 Puffs ity of HFA) 90 00:00: every 6 [place] mcg/actuati 00 (six) Medical on inhaler hours as Branc h needed for Wheezing or Shortness of Breath. albuterol Yes [id number] 2{puff} Inhale 2 [facility] (PROAIR 9-03 Puffs ity of HFA) 90 00:00: every 6 [place] mcg/actuati 00 (six) Medical on inhaler hours as Branc h needed for Wheezing or Shortness of Breath. albuterol Yes [id number] 2{puff} Inhale 2 [facility] (PROAIR 9-03 Puffs ity of HFA) 90 00:00: every 6 [place] mcg/actuati 00 (six) Medical on inhaler hours as Branc h needed for Wheezing or Shortness of Breath. albuterol Yes [id number] 2{puff} Inhale 2 [facility] (PROAIR 9-03 Puffs ity of HFA) 90 00:00: every 6 [place] mcg/actuati 00 (six) Medical on inhaler hours as Branc h needed for Wheezing or Shortness of Breath. albuterol Yes [id number] 2{puff} Inhale 2 [facility] (PROAIR 9-03 Puffs ity of HFA) 90 00:00: every 6 [place] mcg/actuati 00 (six) Medical on inhaler hours as Branc h needed for Wheezing or Shortness of Breath. albuterol Yes [id number] 2{puff} Inhale 2 [facility] (PROAIR 9-03 Puffs ity of HFA) 90 00:00: every 6 [place] mcg/actuati 00 (six) Medical on inhaler hours as Branc h needed for Wheezing or Shortness of Breath. albuterol Yes [id number] 2{puff} Inhale 2 [facility] (PROAIR 9-03 Puffs ity of HFA) 90 00:00: every 6 [place] mcg/actuati 00 (six) Medical on inhaler hours as Branc h needed for Wheezing or Shortness of Breath. albuterol Yes [id number] 2{puff} Inhale 2 [facility] (PROAIR 9-03 Puffs ity of HFA) 90 00:00: every 6 [place] mcg/actuati 00 (six) Medical on inhaler hours as Branc h needed for Wheezing or Shortness of Breath. albuterol Yes [id number] 2{puff} Inhale 2 [facility] (PROAIR 9-03 Puffs ity of HFA) 90 00:00: every 6 [place] mcg/actuati 00 (six) Medical on inhaler hours as Branc h needed for Wheezing or Shortness of Breath. albuterol Yes [id number] 2{puff} Inhale 2 [facility] (PROAIR 9-03 Puffs ity of HFA) 90 00:00: every 6 [place] mcg/actuati 00 (six) Medical on inhaler hours as Branc h needed for Wheezing or Shortness of Breath. albuterol Yes [id number] 2{puff} Inhale 2 [facility] (PROAIR 9-03 Puffs ity of HFA) 90 00:00: every 6 [place] mcg/actuati 00 (six) Medical on inhaler hours as Branc h needed for Wheezing or Shortness of Breath. albuterol Yes [id number] 2{puff} Inhale 2 [facility] (PROAIR 9-03 Puffs ity of HFA) 90 00:00: every 6 [place] mcg/actuati 00 (six) Medical on inhaler hours as Branc h needed for Wheezing or Shortness of Breath. albuterol Yes [id number] 2{puff} Inhale 2 [facility] (PROAIR 9-03 Puffs ity of HFA) 90 00:00: every 6 [place] mcg/actuati 00 (six) Medical on inhaler hours as Branc h needed for Wheezing or Shortness of Breath. albuterol Yes [id number] 2{puff} Inhale 2 [facility] (PROAIR 9-03 Puffs ity of HFA) 90 00:00: every 6 [place] mcg/actuati 00 (six) Medical on inhaler hours as Branc h needed for Wheezing or Shortness of Breath. albuterol Yes [id number] 2{puff} Inhale 2 [facility] (PROAIR 9-03 Puffs ity of HFA) 90 00:00: every 6 [place] mcg/actuati 00 (six) Medical on inhaler hours as Branc h needed for Wheezing or Shortness of Breath. albuterol Yes [id number] 2{puff} Inhale 2 [facility] (PROAIR 9-03 Puffs ity of HFA) 90 00:00: every 6 [place] mcg/actuati 00 (six) Medical on inhaler hours as Branc h needed for Wheezing or Shortness of Breath. albuterol Yes [id number] 2{puff} Inhale 2 [facility] (PROAIR 9-03 Puffs ity of HFA) 90 00:00: every 6 [place] mcg/actuati 00 (six) Medical on inhaler hours as Branc h needed for Wheezing or Shortness of Breath. albuterol Yes [id number] 2{puff} Inhale 2 [facility] (PROAIR 9-03 Puffs ity of HFA) 90 00:00: every 6 [place] mcg/actuati 00 (six) Medical on inhaler hours as Branc h needed for Wheezing or Shortness of Breath. albuterol 0 Yes [id number] 2{puff} Inhale 2 [facility] (PROAIR 9-03 Puffs ity of HFA) 90 00:00: every 6 [place] mcg/actuati 00 (six) Medical on inhaler hours as Branc h needed for Wheezing or Shortness of Breath. albuterol 0 Yes [id number] 2{puff} Inhale 2 [facility] (PROAIR 9-03 Puffs ity of HFA) 90 00:00: every 6 [place] mcg/actuati 00 (six) Medical on inhaler hours as Branc h needed for Wheezing or Shortness of Breath. albuterol Yes [id number] 2{puff} Inhale 2 [facility] (PROAIR 9-03 Puffs ity of HFA) 90 00:00: every 6 [place] mcg/actuati 00 (six) Medical on inhaler hours as Branc h needed for Wheezing or Shortness of Breath. albuterol Yes [id number] 2{puff} Inhale 2 [facility] (PROAIR 9-03 Puffs ity of HFA) 90 00:00: every 6 [place] mcg/actuati 00 (six) Medical on inhaler hours as Branc h needed for Wheezing or Shortness of Breath. albuterol 0 Yes [id number] 2{puff} Inhale 2 [facility] (PROAIR 9-03 Puffs ity of HFA) 90 00:00: every 6 [place] mcg/actuati 00 (six) Medical on inhaler hours as Branc h needed for Wheezing or Shortness of Breath. albuterol 0 Yes [id number] 2{puff} Inhale 2 [facility] (PROAIR 9-03 Puffs ity of HFA) 90 00:00: every 6 [place] mcg/actuati 00 (six) Medical on inhaler hours as Branc h needed for Wheezing or Shortness of Breath. albuterol 0 Yes [id number] 2{puff} Inhale 2 [facility] (PROAIR 9-03 Puffs ity of HFA) 90 00:00: every 6 [place] mcg/actuati 00 (six) Medical on inhaler hours as Branc h needed for Wheezing or Shortness of Breath. albuterol Yes [id number] 2{puff} Inhale 2 [facility] (PROAIR 9-03 Puffs ity of HFA) 90 00:00: every 6 [place] mcg/actuati 00 (six) Medical on inhaler hours as Branc h needed for Wheezing or Shortness of Breath. albuterol Yes [id number] 2{puff} Inhale 2 [facility] (PROAIR 9-03 Puffs ity of HFA) 90 00:00: every 6 [place] mcg/actuati 00 (six) Medical on inhaler hours as Branc h needed for Wheezing or Shortness of Breath. albuterol Yes [id number] 2{puff} Inhale 2 [facility] (PROAIR 9-03 Puffs ity of HFA) 90 00:00: every 6 [place] mcg/actuati 00 (six) Medical on inhaler hours as Branc h needed for Wheezing or Shortness of Breath. albuterol Yes [id number] 2{puff} Inhale 2 [facility] (PROAIR 9-03 Puffs ity of HFA) 90 00:00: every 6 [place] mcg/actuati 00 (six) Medical on inhaler hours as Branc h needed for Wheezing or Shortness of Breath. albuterol Yes [id number] 2{puff} Inhale 2 [facility] (PROAIR 9-03 Puffs ity of HFA) 90 00:00: every 6 [place] mcg/actuati 00 (six) Medical on inhaler hours as Branc h needed for Wheezing or Shortness of Breath. albuterol Yes [id number] 2{puff} Inhale 2 [facility] (PROAIR 9-03 Puffs ity of HFA) 90 00:00: every 6 [place] mcg/actuati 00 (six) Medical on inhaler hours as Branc h needed for Wheezing or Shortness of Breath. albuterol 0 Yes [id number] 2{puff} Inhale 2 [facility] (PROAIR 9-03 Puffs ity of HFA) 90 00:00: every 6 [place] mcg/actuati 00 (six) Medical on inhaler hours as Branc h needed for Wheezing or Shortness of Breath. albuterol Yes [id number] 2{puff} Inhale 2 [facility] (PROAIR 9-03 Puffs ity of HFA) 90 00:00: every 6 [place] mcg/actuati 00 (six) Medical on inhaler hours as Branc h needed for Wheezing or Shortness of Breath. albuterol Yes [id number] 2{puff} Inhale 2 [facility] (PROAIR 9-03 Puffs ity of HFA) 90 00:00: every 6 [place] mcg/actuati 00 (six) Medical on inhaler hours as Branc h needed for Wheezing or Shortness of Breath. albuterol Yes [id number] 2{puff} Inhale 2 [facility] (PROAIR 9-03 Puffs ity of HFA) 90 00:00: every 6 [place] mcg/actuati 00 (six) Medical on inhaler hours as Branc h needed for Wheezing or Shortness of Breath. albuterol Yes [id number] 2{puff} Inhale 2 [facility] (PROAIR 9-03 Puffs ity of HFA) 90 00:00: every 6 [place] mcg/actuati 00 (six) Medical on inhaler hours as Branc h needed for Wheezing or Shortness of Breath. albuterol Yes [id number] 2{puff} Inhale 2 [facility] (PROAIR 9-03 Puffs ity of HFA) 90 00:00: every 6 [place] mcg/actuati 00 (six) Medical on inhaler hours as Branc h needed for Wheezing or Shortness of Breath. albuterol Yes [id number] 2{puff} Inhale 2 [facility] (PROAIR 9-03 Puffs ity of HFA) 90 00:00: every 6 [place] mcg/actuati 00 (six) Medical on inhaler hours as Branc h needed for Wheezing or Shortness of Breath. albuterol Yes [id number] 2{puff} Inhale 2 [facility] (PROAIR 9-03 Puffs ity of HFA) 90 00:00: every 6 [place] mcg/actuati 00 (six) Medical on inhaler hours as Branc h needed for Wheezing or Shortness of Breath. albuterol Yes [id number] 2{puff} Inhale 2 [facility] (PROAIR 9-03 Puffs ity of HFA) 90 00:00: every 6 [place] mcg/actuati 00 (six) Medical on inhaler hours as Branc h needed for Wheezing or Shortness of Breath. albuterol Yes [id number] 2{puff} Inhale 2 [facility] (PROAIR 9-03 Puffs ity of HFA) 90 00:00: every 6 [place] mcg/actuati 00 (six) Medical on inhaler hours as Branc h needed for Wheezing or Shortness of Breath. albuterol Yes [id number] 2{puff} Inhale 2 [facility] (PROAIR 9-03 Puffs ity of HFA) 90 00:00: every 6 [place] mcg/actuati 00 (six) Medical on inhaler hours as Branc h needed for Wheezing or Shortness of Breath. albuterol Yes [id number] 2{puff} Inhale 2 [facility] (PROAIR 9-03 Puffs ity of HFA) 90 00:00: every 6 [place] mcg/actuati 00 (six) Medical on inhaler hours as Branc h needed for Wheezing or Shortness of Breath. albuterol Yes [id number] 2{puff} Inhale 2 [facility] (PROAIR 9-03 Puffs ity of HFA) 90 00:00: every 6 [place] mcg/actuati 00 (six) Medical on inhaler hours as Branc h needed for Wheezing or Shortness of Breath. albuterol Yes [id number] 2{puff} Inhale 2 [facility] (PROAIR 9-03 Puffs ity of HFA) 90 00:00: every 6 [place] mcg/actuati 00 (six) Medical on inhaler hours as Branc h needed for Wheezing or Shortness of Breath. albuterol Yes [id number] 2{puff} Inhale 2 [facility] (PROAIR 9-03 Puffs ity of HFA) 90 00:00: every 6 [place] mcg/actuati 00 (six) Medical on inhaler hours as Branc h needed for Wheezing or Shortness of Breath. albuterol Yes [id number] 2{puff} Inhale 2 [facility] (PROAIR 9-03 Puffs ity of HFA) 90 00:00: every 6 [place] mcg/actuati 00 (six) Medical on inhaler hours as Branc h needed for Wheezing or Shortness of Breath. albuterol 0 Yes [id number] 2{puff} Inhale 2 [facility] (PROAIR 9-03 Puffs ity of HFA) 90 00:00: every 6 [place] mcg/actuati 00 (six) Medical on inhaler hours as Branc h needed for Wheezing or Shortness of Breath. albuterol 0 Yes [id number] 2{puff} Inhale 2 [facility] (PROAIR 9-03 Puffs ity of HFA) 90 00:00: every 6 [place] mcg/actuati 00 (six) Medical on inhaler hours as Branc h needed for Wheezing or Shortness of Breath. albuterol Yes [id number] 2{puff} Inhale 2 [facility] (PROAIR 9-03 Puffs ity of HFA) 90 00:00: every 6 [place] mcg/actuati 00 (six) Medical on inhaler hours as Branc h needed for Wheezing or Shortness of Breath. albuterol Yes [id number] 2{puff} Inhale 2 [facility] (PROAIR 9-03 Puffs ity of HFA) 90 00:00: every 6 [place] mcg/actuati 00 (six) Medical on inhaler hours as Branc h needed for Wheezing or Shortness of Breath. albuterol 0 Yes [id number] 2{puff} Inhale 2 [facility] (PROAIR 9-03 Puffs ity of HFA) 90 00:00: every 6 [place] mcg/actuati 00 (six) Medical on inhaler hours as Branc h needed for Wheezing or Shortness of Breath. albuterol 0 Yes [id number] 2{puff} Inhale 2 [facility] (PROAIR 9-03 Puffs ity of HFA) 90 00:00: every 6 [place] mcg/actuati 00 (six) Medical on inhaler hours as Branc h needed for Wheezing or Shortness of Breath. albuterol 0 Yes [id number] 2{puff} Inhale 2 [facility] (PROAIR 9-03 Puffs ity of HFA) 90 00:00: every 6 [place] mcg/actuati 00 (six) Medical on inhaler hours as Branc h needed for Wheezing or Shortness of Breath. albuterol Yes [id number] 2{puff} Inhale 2 [facility] (PROAIR 9-03 Puffs ity of HFA) 90 00:00: every 6 [place] mcg/actuati 00 (six) Medical on inhaler hours as Branc h needed for Wheezing or Shortness of Breath. albuterol Yes [id number] 2{puff} Inhale 2 [facility] (PROAIR 9-03 Puffs ity of HFA) 90 00:00: every 6 [place] mcg/actuati 00 (six) Medical on inhaler hours as Branc h needed for Wheezing or Shortness of Breath. albuterol Yes [id number] 2{puff} Inhale 2 [facility] (PROAIR 9-03 Puffs ity of HFA) 90 00:00: every 6 [place] mcg/actuati 00 (six) Medical on inhaler hours as Branc h needed for Wheezing or Shortness of Breath. albuterol Yes [id number] 2{puff} Inhale 2 [facility] (PROAIR 9-03 Puffs ity of HFA) 90 00:00: every 6 [place] mcg/actuati 00 (six) Medical on inhaler hours as Branc h needed for Wheezing or Shortness of Breath. albuterol Yes [id number] 2{puff} Inhale 2 [facility] (PROAIR 9-03 Puffs ity of HFA) 90 00:00: every 6 [place] mcg/actuati 00 (six) Medical on inhaler hours as Branc h needed for Wheezing or Shortness of Breath. albuterol Yes [id number] 2{puff} Inhale 2 [facility] (PROAIR 9-03 Puffs ity of HFA) 90 00:00: every 6 [place] mcg/actuati 00 (six) Medical on inhaler hours as Branc h needed for Wheezing or Shortness of Breath. albuterol Yes [id number] 2{puff} Inhale 2 [facility] (PROAIR 9-03 Puffs ity of HFA) 90 00:00: every 6 [place] mcg/actuati 00 (six) Medical on inhaler hours as Branc h needed for Wheezing or Shortness of Breath. albuterol Yes [id number] 2{puff} Inhale 2 [facility] (PROAIR 9-03 Puffs ity of HFA) 90 00:00: every 6 [place] mcg/actuati 00 (six) Medical on inhaler hours as Branc h needed for Wheezing or Shortness of Breath. albuterol Yes [id number] 2{puff} Inhale 2 [facility] (PROAIR 9-03 Puffs ity of HFA) 90 00:00: every 6 [place] mcg/actuati 00 (six) Medical on inhaler hours as Branc h needed for Wheezing or Shortness of Breath. albuterol Yes [id number] 2{puff} Inhale 2 [facility] (PROAIR 9-03 Puffs ity of HFA) 90 00:00: every 6 [place] mcg/actuati 00 (six) Medical on inhaler hours as Branc h needed for Wheezing or Shortness of Breath. albuterol Yes [id number] 2{puff} Inhale 2 [facility] (PROAIR 9-03 Puffs ity of HFA) 90 00:00: every 6 [place] mcg/actuati 00 (six) Medical on inhaler hours as Branc h needed for Wheezing or Shortness of Breath. albuterol Yes [id number] 2{puff} Inhale 2 [facility] (PROAIR 9-03 Puffs ity of HFA) 90 00:00: every 6 [place] mcg/actuati 00 (six) Medical on inhaler hours as Branc h needed for Wheezing or Shortness of Breath. albuterol Yes [id number] 2{puff} Inhale 2 [facility] (PROAIR 9-03 Puffs ity of HFA) 90 00:00: every 6 [place] mcg/actuati 00 (six) Medical on inhaler hours as Branc h needed for Wheezing or Shortness of Breath. albuterol Yes [id number] 2{puff} Inhale 2 [facility] (PROAIR 9-03 Puffs ity of HFA) 90 00:00: every 6 [place] mcg/actuati 00 (six) Medical on inhaler hours as Branc h needed for Wheezing or Shortness of Breath. albuterol Yes [id number] 2{puff} Inhale 2 [facility] (PROAIR 9-03 Puffs ity of HFA) 90 00:00: every 6 [place] mcg/actuati 00 (six) Medical on inhaler hours as Branc h needed for Wheezing or Shortness of Breath. albuterol Yes [id number] 2{puff} Inhale 2 [facility] (PROAIR 9-03 Puffs ity of HFA) 90 00:00: every 6 [place] mcg/actuati 00 (six) Medical on inhaler hours as Branc h needed for Wheezing or Shortness of Breath. albuterol Yes [id number] 2{puff} Inhale 2 [facility] (PROAIR 9-03 Puffs ity of HFA) 90 00:00: every 6 [place] mcg/actuati 00 (six) Medical on inhaler hours as Branc h needed for Wheezing or Shortness of Breath. albuterol Yes [id number] 2{puff} Inhale 2 [facility] (PROAIR 9-03 Puffs ity of HFA) 90 00:00: every 6 [place] mcg/actuati 00 (six) Medical on inhaler hours as Branc h needed for Wheezing or Shortness of Breath. albuterol Yes [id number] 2{puff} Inhale 2 [facility] (PROAIR 9-03 Puffs ity of HFA) 90 00:00: every 6 [place] mcg/actuati 00 (six) Medical on inhaler hours as Branc h needed for Wheezing or Shortness of Breath. albuterol Yes [id number] 2{puff} Inhale 2 [facility] (PROAIR 9-03 Puffs ity of HFA) 90 00:00: every 6 [place] mcg/actuati 00 (six) Medical on inhaler hours as Branc h needed for Wheezing or Shortness of Breath. albuterol Yes [id number] 2{puff} Inhale 2 [facility] (PROAIR 9-03 Puffs ity of HFA) 90 00:00: every 6 [place] mcg/actuati 00 (six) Medical on inhaler hours as Branc h needed for Wheezing or Shortness of Breath. albuterol Yes [id number] 2{puff} Inhale 2 [facility] (PROAIR 9-03 Puffs ity of HFA) 90 00:00: every 6 [place] mcg/actuati 00 (six) Medical on inhaler hours as Branc h needed for Wheezing or Shortness of Breath. albuterol Yes [id number] 2{puff} Inhale 2 [facility] (PROAIR 9-03 Puffs ity of HFA) 90 00:00: every 6 [place] mcg/actuati 00 (six) Medical on inhaler hours as Branc h needed for Wheezing or Shortness of Breath. albuterol Yes [id number] 2{puff} Inhale 2 [facility] (PROAIR 9-03 Puffs ity of HFA) 90 00:00: every 6 [place] mcg/actuati 00 (six) Medical on inhaler hours as Branc h needed for Wheezing or Shortness of Breath. albuterol Yes [id number] 2{puff} Inhale 2 [facility] (PROAIR 9-03 Puffs ity of HFA) 90 00:00: every 6 [place] mcg/actuati 00 (six) Medical on inhaler hours as Branc h needed for Wheezing or Shortness of Breath. albuterol Yes [id number] 2{puff} Inhale 2 [facility] (PROAIR 9-03 Puffs ity of HFA) 90 00:00: every 6 [place] mcg/actuati 00 (six) Medical on inhaler hours as Branc h needed for Wheezing or Shortness of Breath. albuterol 0 Yes [id number] 2{puff} Inhale 2 [facility] (PROAIR 9-03 Puffs ity of HFA) 90 00:00: every 6 [place] mcg/actuati 00 (six) Medical on inhaler hours as Branc h needed for Wheezing or Shortness of Breath. albuterol 0 Yes [id number] 2{puff} Inhale 2 [facility] (PROAIR 9-03 Puffs ity of HFA) 90 00:00: every 6 [place] mcg/actuati 00 (six) Medical on inhaler hours as Branc h needed for Wheezing or Shortness of Breath. albuterol 0 Yes [id number] 2{puff} Inhale 2 [facility] (PROAIR 9-03 Puffs ity of HFA) 90 00:00: every 6 [place] mcg/actuati 00 (six) Medical on inhaler hours as Branc h needed for Wheezing or Shortness of Breath. albuterol Yes [id number] 2{puff} Inhale 2 [facility] (PROAIR 9-03 Puffs ity of HFA) 90 00:00: every 6 [place] mcg/actuati 00 (six) Medical on inhaler hours as Branc h needed for Wheezing or Shortness of Breath. albuterol Yes [id number] 2{puff} Inhale 2 [facility] (PROAIR 9-03 Puffs ity of HFA) 90 00:00: every 6 [place] mcg/actuati 00 (six) Medical on inhaler hours as Branc h needed for Wheezing or Shortness of Breath. albuterol Yes [id number] 2{puff} Inhale 2 [facility] (PROAIR 9-03 Puffs ity of HFA) 90 00:00: every 6 [place] mcg/actuati 00 (six) Medical on inhaler hours as Branc h needed for Wheezing or Shortness of Breath. albuterol Yes [id number] 2{puff} Inhale 2 [facility] (PROAIR 9-03 Puffs ity of HFA) 90 00:00: every 6 [place] mcg/actuati 00 (six) Medical on inhaler hours as Branc h needed for Wheezing or Shortness of Breath. albuterol Yes [id number] 2{puff} Inhale 2 [facility] (PROAIR 9-03 Puffs ity of HFA) 90 00:00: every 6 [place] mcg/actuati 00 (six) Medical on inhaler hours as Branc h needed for Wheezing or Shortness of Breath. albuterol Yes [id number] 2{puff} Inhale 2 [facility] (PROAIR 9-03 Puffs ity of HFA) 90 00:00: every 6 [place] mcg/actuati 00 (six) Medical on inhaler hours as Branc h needed for Wheezing or Shortness of Breath. albuterol 0 Yes [id number] 2{puff} Inhale 2 [facility] (PROAIR 9-03 Puffs ity of HFA) 90 00:00: every 6 [place] mcg/actuati 00 (six) Medical on inhaler hours as Branc h needed for Wheezing or Shortness of Breath. amLODIPine 2021- No [id number] 2.5mg Take 1 [facility] 2.5 mg 07-20-12 tablet by ity of tablet 00:00: 00:00 mouth [place] 00 :00 daily. [facility] amLODIPine 2020-0 2021- No [id number] 2.5mg Take 1 [facility] 2.5 mg 07-20-12 tablet by ity of tablet 00:00: 00:00 mouth [place] 00 :00 daily. [facility] hydroCHLORO 2020-0 2021- No [id number] 25mg Take 1 [facility] thiazide 25 07-20-15 tablet by it y of mg tablet 00:00: 00:00 mouth [place] 00 :00 daily. [facility] hydrochloro 2020- No 25mg Take 25 mg [facility] thiazide 3-22 03-22 by mouth [facility] (HYDRODIURI 16:58: 00:00 daily. of L) 25 MG 25 :00 Medicin tablet e Magnesium Yes Take by [facility] 100 MG CAPS 3-22 mouth. [facility] 15:58: of 46 Medicin e Melatonin Yes Take by [facility] 10 MG TABS 3-22 mouth. [place] 15:58: of 46 Medicin e hydrochloro 0 [...] MG 00 daily. Medicin tablet e Potassium 0 Yes Take 2 [facility] Citrate 3-22 tablets PO Colleg [facility] (UROCIT-K 00:00: TID of 10) 10 MEQ 00 Medicin (1080 MG) e TBCR hydrochloro 0 Yes 25mg Take 1 [facility] thiazide 3-22 Tablet by [facility] (HYDRODIURI 00:00: mouth of L) 25 MG 00 daily. Medicin tablet e Potassium Yes Take 2 [facility] Citrate 3-22 tablets PO [facility] (UROCIT-K 00:00: TID of 10) 10 MEQ 00 Medicin (1080 MG) e TBCR oxybutynin Yes 10mg Take 1 [facility] (DITROPAN 3-22 Tablet by [facility] XL) 10 MG 00:00: mouth of CR tablet 00 daily. Medicin e hydrochloro 0 2021- No 25mg Take 1 [place] [facility] thiazide 3-22 -19 Tablet by Colle ge (HYDRODIURI 00:00: 00:00 mouth of L) 25 MG 00 :00 daily. Medicin tablet e Potassium 0 2021- No Take 2 [facility] Citrate 3-22 -19 tablets PO [facility]le [facility] (UROCIT-K 00:00: 00:00 TID of 10) 10 MEQ 00 :00 Medicin (1080 MG) e TBCR oxybutynin 2020- No 10mg Take 1 [facility] (DITROPAN 3-22 11-10 Tablet by Kristine tj XL) 10 MG 00:00: 00:00 mouth of CR tablet 00 :00 daily. Medicin e hydrochloro 2019-02 Yes 25mg Take 25 mg [facility] thiazide 1-23 by mouth [place] (HYDRODIURI 17:00: daily. of L) 25 MG 06 Medicin tablet e Magnesium 2019-02 Yes Take by [facility] 100 MG CAPS 1-23 mouth. [facility] e 17:00: of Medicin e Melatonin 2019-02 Yes Take by [facility] 10 MG TABS 1-23 mouth. [place] 17:00: of 06 Medicin e Potassium 2019-02 Yes Take 2 [facility] Citrate 1-23 tablets PO Colleg e (UROCIT-K 00:00: TID of 10) 10 MEQ 00 Medicin (1080 MG) e TBCR Potassium 2019-02- No Take 2 [facility] Citrate 1-23 03-22 tablets PO Colle ge (UROCIT-K 00:00: 00:00 TID of 10) 10 MEQ 00 :00 Medicin (1080 MG) e TBCR levothyroxi 2019-02 Yes 25ug Take 25 [place] [facility] ne 1-02 mcg by [place] (SYNTHROID) 00:00: mouth. of 25 MCG 00 Medicin tablet e levothyroxi 2019-02 Yes 25ug Take 25 [place] [facility] ne 1-02 mcg by [place] (SYNTHROID) 00:00: mouth. of 25 MCG 00 Medicin tablet e levothyroxi 2019-02- No 25ug Take 25 [facility] ne 1-02 11-10 mcg by [place] (SYNTHROID) 00:00: 00:00 mouth. of 25 MCG 00 :00 Medicin tablet e aspirin 81 2019-02 Yes [id number] 81mg Take 1 [facility] mg chewable 0-01 [id number] tablet by i ty of tablet 00:00: mouth [place] 00 daily. Medical Branch aspirin 81 2019-02 Yes [id number] 81mg Take 1 [facility] mg chewable 0-01 [id number] tablet by i ty of tablet 00:00: mouth [place] 00 daily. [facility] aspirin 81 2019-02 Yes [id number] 81mg Take 1 [facility] mg chewable 0-01 [id number] tablet by i ty of tablet 00:00: mouth [place] 00 daily. [facility] aspirin 81 2019-02 Yes [id number] 81mg Take 1 [facility] mg chewable 0-01 [id number] tablet by i ty of tablet 00:00: mouth [place] 00 daily. Medical [facility] aspirin 81 2019-02 Yes [id number] 81mg Take 1 [facility] mg chewable 0-01 [id number] tablet by i ty of tablet 00:00: mouth [place] 00 daily. [facility] aspirin 81 2019- Yes [id number] 81mg Take 1 [facility] mg chewable 0-01 [id number] tablet by i ty of tablet 00:00: mouth [place] 00 daily. [facility] aspirin 81 2019-02 Yes [id number] 81mg Take 1 [facility] mg chewable 0-01 [id number] tablet by i ty of tablet 00:00: mouth [place] 00 daily. Medical [facility] aspirin 81 2019-02 Yes [id number] 81mg Take 1 [facility] mg chewable 0-01 [id number] tablet by i ty of tablet 00:00: mouth [place] 00 daily. [facility] aspirin 81 2020- Yes [id number] 81mg Take 1 [facility] mg chewable 0-01 [id number] tablet by i ty of tablet 00:00: mouth [place] 00 daily. [facility] aspirin 81 2020- Yes [id number] 81mg Take 1 [facility] mg chewable 0-01 [id number] tablet by i ty of tablet 00:00: mouth [place] 00 daily. [facility] aspirin 81 2019- Yes [id number] 81mg Take 1 [facility] mg chewable 0-01 [id number] tablet by i ty of tablet 00:00: mouth [place] 00 daily. [facility] aspirin 81 2020- Yes [id number] 81mg Take 1 [facility] mg chewable 0-01 [id number] tablet by i ty of tablet 00:00: mouth [place] 00 daily. [facility] aspirin 81 2020- Yes [id number] 81mg Take 1 [facility] mg chewable 0-01 [id number] tablet by i ty of tablet 00:00: mouth [place] 00 daily. Medical [facility] aspirin 81 2019- Yes [id number] 81mg Take 1 [facility] mg chewable 0-01 [id number] tablet by i ty of tablet 00:00: mouth [place] 00 daily. Medical [facility] aspirin 81 2019- Yes [id number] 81mg Take 1 [facility] mg chewable 0-01 [id number] tablet by i ty of tablet 00:00: mouth [place] 00 daily. [facility] aspirin 81 2020- Yes [id number] 81mg Take 1 [facility] mg chewable 0-01 [id number] tablet by i ty of tablet 00:00: mouth [place] 00 daily. Medical [facility] aspirin 81 2020- Yes [id number] 81mg Take 1 [facility] mg chewable 0-01 [id number] tablet by i ty of tablet 00:00: mouth [place] 00 daily. [facility] aspirin 81 2020- Yes [id number] 81mg Take 1 [facility] mg chewable 0-01 [id number] tablet by i ty of tablet 00:00: mouth [place] 00 daily. [facility] aspirin 81 2020- Yes [id number] 81mg Take 1 [facility] mg chewable 0-01 [id number] tablet by i ty of tablet 00:00: mouth [place] 00 daily. [facility] aspirin 81 2020- Yes [id number] 81mg Take 1 [facility] mg chewable 0-01 [id number] tablet by i ty of tablet 00:00: mouth [place] 00 daily. [facility] aspirin 81 2020- Yes [id number] 81mg Take 1 [facility] mg chewable 0-01 [id number] tablet by i ty of tablet 00:00: mouth [place] 00 daily. [facility] aspirin 81 2020- Yes [id number] 81mg Take 1 [facility] mg chewable 0-01 [id number] tablet by i ty of tablet 00:00: mouth [place] 00 daily. [facility] aspirin 81 2020- Yes [id number] 81mg Take 1 [facility] mg chewable 0-01 [id number] tablet by i ty of tablet 00:00: mouth [place] 00 daily. [facility] aspirin 81 2020- Yes [id number] 81mg Take 1 [facility] mg chewable 0-01 [id number] tablet by i ty of tablet 00:00: mouth [place] 00 daily. [facility] aspirin 81 2020- Yes [id number] 81mg Take 1 [facility] mg chewable 0-01 [id number] tablet by i ty of tablet 00:00: mouth [place] 00 daily. [facility] aspirin 81 2020- Yes [id number] 81mg Take 1 [facility] mg chewable 0-01 [id number] tablet by i ty of tablet 00:00: mouth [place] 00 daily. [facility] aspirin 81 2020- Yes [id number] 81mg Take 1 [facility] mg chewable 0-01 [id number] tablet by i ty of tablet 00:00: mouth [place] 00 daily. [facility] aspirin 81 2020- Yes [id number] 81mg Take 1 [facility] mg chewable 0-01 [id number] tablet by i ty of tablet 00:00: mouth [place] 00 daily. [facility] aspirin 81 2020- Yes [id number] 81mg Take 1 [facility] mg chewable 0-01 [id number] tablet by i ty of tablet 00:00: mouth [place] 00 daily. [facility] aspirin 81 2020- Yes [id number] 81mg Take 1 [facility] mg chewable 0-01 [id number] tablet by i ty of tablet 00:00: mouth [place] 00 daily. [facility] aspirin 81 2020- Yes [id number] 81mg Take 1 [facility] mg chewable 0-01 [id number] tablet by i ty of tablet 00:00: mouth [place] 00 daily. [facility] aspirin 81 2020- Yes [id number] 81mg Take 1 [facility] mg chewable 0-01 [id number] tablet by i ty of tablet 00:00: mouth [place] 00 daily. [facility] aspirin 81 2020- Yes [id number] 81mg Take 1 [facility] mg chewable 0-01 [id number] tablet by i ty of tablet 00:00: mouth [place] 00 daily. [facility] aspirin 81 2020-1 Yes [id number] 81mg Take 1 [facility] mg chewable 0-01 [id number] tablet by i ty of tablet 00:00: mouth [place] 00 daily. [facility] aspirin 81 2020- Yes [id number] 81mg Take 1 [facility] mg chewable 0-01 [id number] tablet by i ty of tablet 00:00: mouth [place] 00 daily. [facility] aspirin 81 2020- Yes [id number] 81mg Take 1 [facility] mg chewable 0-01 [id number] tablet by i ty of tablet 00:00: mouth [place] 00 daily. [facility] aspirin 81 2020- Yes [id number] 81mg Take 1 [facility] mg chewable 0-01 [id number] tablet by i ty of tablet 00:00: mouth [place] 00 daily. [facility] aspirin 81 2020- Yes [id number] 81mg Take 1 [facility] mg chewable 0-01 [id number] tablet by i ty of tablet 00:00: mouth [place] 00 daily. [facility] aspirin 81 2019- Yes [id number] 81mg Take 1 [facility] mg chewable 0-01 [id number] tablet by i ty of tablet 00:00: mouth [place] 00 daily. [facility] aspirin 81 2019- Yes [id number] 81mg Take 1 [facility] mg chewable 0-01 [id number] tablet by i ty of tablet 00:00: mouth [place] 00 daily. [facility] aspirin 81 2020- Yes [id number] 81mg Take 1 [facility] mg chewable 0-01 [id number] tablet by i ty of tablet 00:00: mouth [place] 00 daily. [facility] aspirin 81 2020- Yes [id number] 81mg Take 1 [facility] mg chewable 0-01 [id number] tablet by i ty of tablet 00:00: mouth [place] 00 daily. [facility] aspirin 81 2020- Yes [id number] 81mg Take 1 [facility] mg chewable 0-01 [id number] tablet by i ty of tablet 00:00: mouth [place] 00 daily. [facility] aspirin 81 2020- Yes [id number] 81mg Take 1 [facility] mg chewable 0-01 [id number] tablet by i ty of tablet 00:00: mouth [place] 00 daily. [facility] aspirin 81 2020- Yes [id number] 81mg Take 1 [facility] mg chewable 0-01 [id number] tablet by i ty of tablet 00:00: mouth [place] 00 daily. [facility] aspirin 81 2020- Yes [id number] 81mg Take 1 [facility] mg chewable 0-01 [id number] tablet by i ty of tablet 00:00: mouth [place] 00 daily. [facility] aspirin 81 2020- Yes [id number] 81mg Take 1 [facility] mg chewable 0-01 [id number] tablet by i ty of tablet 00:00: mouth [place] 00 daily. [facility] aspirin 81 2020- Yes [id number] 81mg Take 1 [facility] mg chewable 0-01 [id number] tablet by i ty of tablet 00:00: mouth [place] 00 daily. [facility] aspirin 81 2020- Yes [id number] 81mg Take 1 [facility] mg chewable 0-01 [id number] tablet by i ty of tablet 00:00: mouth [place] 00 daily. [facility] aspirin 81 2020- Yes [id number] 81mg Take 1 [facility] mg chewable 0-01 [id number] tablet by i ty of tablet 00:00: mouth [place] 00 daily. [facility] aspirin 81 2020- Yes [id number] 81mg Take 1 [facility] mg chewable 0-01 [id number] tablet by i ty of tablet 00:00: mouth [place] 00 daily. [facility] aspirin 81 2020- Yes [id number] 81mg Take 1 [facility] mg chewable 0-01 [id number] tablet by i ty of tablet 00:00: mouth [place] 00 daily. [facility] aspirin 81 2020- Yes [id number] 81mg Take 1 [facility] mg chewable 0-01 [id number] tablet by i ty of tablet 00:00: mouth [place] 00 daily. [facility] aspirin 81 2020- Yes [id number] 81mg Take 1 [facility] mg chewable 0-01 [id number] tablet by i ty of tablet 00:00: mouth [place] 00 daily. [facility] aspirin 81 2020- Yes [id number] 81mg Take 1 [facility] mg chewable 0-01 [id number] tablet by i ty of tablet 00:00: mouth [place] 00 daily. [facility] aspirin 81 2020- Yes [id number] 81mg Take 1 [facility] mg chewable 0-01 [id number] tablet by i ty of tablet 00:00: mouth [place] 00 daily. [facility] aspirin 81 2020- Yes [id number] 81mg Take 1 [facility] mg chewable 0-01 [id number] tablet by i ty of tablet 00:00: mouth [place] 00 daily. [facility] aspirin 81 2020- Yes [id number] 81mg Take 1 [facility] mg chewable 0-01 [id number] tablet by i ty of tablet 00:00: mouth [place] 00 daily. [facility] aspirin 81 2020-1 Yes [id number] 81mg Take 1 [facility] mg chewable 0-01 [id number] tablet by i ty of tablet 00:00: mouth [place] 00 daily. [facility] aspirin 81 2020- Yes [id number] 81mg Take 1 [facility] chewable 0-01 [id number] tablet by i ty of tablet 00:00: mouth [place] 00 daily. [facility] aspirin 81 2020- Yes [id number] 81mg Take 1 [facility] mg chewable 0-01 [id number] tablet by i ty of tablet 00:00: mouth [place] 00 daily. [facility] aspirin 81 2020- Yes [id number] 81mg Take 1 [facility] mg chewable 0-01 [id number] tablet by i ty of tablet 00:00: mouth [place] 00 daily. [facility] aspirin 81 2020- Yes [id number] 81mg Take 1 [facility] mg chewable 0-01 [id number] tablet by i ty of tablet 00:00: mouth [place] 00 daily. [facility] aspirin 81 2019- Yes [id number] 81mg Take 1 [facility] mg chewable 0-01 [id number] tablet by i ty of tablet 00:00: mouth [place] 00 daily. [facility] aspirin 81 2019- Yes [id number] 81mg Take 1 [facility] mg chewable 0-01 [id number] tablet by i ty of tablet 00:00: mouth [place] 00 daily. [facility] aspirin 81 2020- Yes [id number] 81mg Take 1 [facility] mg chewable 0-01 [id number] tablet by i ty of tablet 00:00: mouth [place] 00 daily. [facility] aspirin 81 2020- Yes [id number] 81mg Take 1 [facility] mg chewable 0-01 [id number] tablet by i ty of tablet 00:00: mouth [place] 00 daily. [facility] aspirin 81 2020- Yes [id number] 81mg Take 1 [facility] mg chewable 0-01 [id number] tablet by i ty of tablet 00:00: mouth [place] 00 daily. [facility] aspirin 81 2020- Yes [id number] 81mg Take 1 [facility] mg chewable 0-01 [id number] tablet by i ty of tablet 00:00: mouth [place] 00 daily. [facility] aspirin 81 2020- Yes [id number] 81mg Take 1 [facility] mg chewable 0-01 [id number] tablet by i ty of tablet 00:00: mouth [place] 00 daily. [facility] aspirin 81 2020- Yes [id number] 81mg Take 1 [facility] mg chewable 0-01 [id number] tablet by i ty of tablet 00:00: mouth [place] 00 daily. [facility] aspirin 81 2020- Yes [id number] 81mg Take 1 [facility] mg chewable 0-01 [id number] tablet by i ty of tablet 00:00: mouth [place] 00 daily. [facility] aspirin 81 2020- Yes [id number] 81mg Take 1 [facility] mg chewable 0-01 [id number] tablet by i ty of tablet 00:00: mouth [place] 00 daily. [facility] aspirin 81 2020- Yes [id number] 81mg Take 1 [facility] mg chewable 0-01 [id number] tablet by i ty of tablet 00:00: mouth [place] 00 daily. [facility] aspirin 81 2020- Yes [id number] 81mg Take 1 [facility] mg chewable 0-01 [id number] tablet by i ty of tablet 00:00: mouth [place] 00 daily. [facility] aspirin 81 2020- Yes [id number] 81mg Take 1 [facility] mg chewable 0-01 [id number] tablet by i ty of tablet 00:00: mouth [place] 00 daily. [facility] aspirin 81 2020- Yes [id number] 81mg Take 1 [facility] mg chewable 0-01 [id number] tablet by i ty of tablet 00:00: mouth [place] 00 daily. [facility] aspirin 81 2020- Yes [id number] 81mg Take 1 [facility] mg chewable 0-01 [id number] tablet by i ty of tablet 00:00: mouth [place] 00 daily. [facility] aspirin 81 2020- Yes [id number] 81mg Take 1 [facility] mg chewable 0-01 [id number] tablet by i ty of tablet 00:00: mouth [place] 00 daily. [facility] aspirin 81 2020- Yes [id number] 81mg Take 1 [facility] mg chewable 0-01 [id number] tablet by i ty of tablet 00:00: mouth [place] 00 daily. [facility] aspirin 81 2020- Yes [id number] 81mg Take 1 [facility] mg chewable 0-01 [id number] tablet by i ty of tablet 00:00: mouth [place] 00 daily. [facility] aspirin 81 2020- Yes [id number] 81mg Take 1 [facility] mg chewable 0-01 [id number] tablet by i ty of tablet 00:00: mouth [place] 00 daily. [facility] aspirin 81 2020- Yes [id number] 81mg Take 1 [facility] mg chewable 0-01 [id number] tablet by i ty of tablet 00:00: mouth [place] 00 daily. [facility] aspirin 81 2020-1 Yes [id number] 81mg Take 1 [facility] mg chewable 0-01 [id number] tablet by i ty of tablet 00:00: mouth [place] 00 daily. [facility] aspirin 81 2020- Yes [id number] 81mg Take 1 [facility] mg chewable 0-01 [id number] tablet by i ty of tablet 00:00: mouth [place] 00 daily. [facility] aspirin 81 2020- Yes [id number] 81mg Take 1 [facility] mg chewable 0-01 [id number] tablet by i ty of tablet 00:00: mouth [place] 00 daily. [facility] aspirin 81 2020- Yes [id number] 81mg Take 1 [facility] mg chewable 0-01 [id number] tablet by i ty of tablet 00:00: mouth [place] 00 daily. [facility] aspirin 81 2020- Yes [id number] 81mg Take 1 [facility] mg chewable 0-01 [id number] tablet by i ty of tablet 00:00: mouth [place] 00 daily. [facility] aspirin 81 2019- Yes [id number] 81mg Take 1 [facility] mg chewable 0-01 [id number] tablet by i ty of tablet 00:00: mouth [place] 00 daily. [facility] aspirin 81 2020- Yes [id number] 81mg Take 1 [facility] mg chewable 0-01 [id number] tablet by i ty of tablet 00:00: mouth [place] 00 daily. [facility] aspirin 81 2019- Yes [id number] 81mg Take 1 [facility] mg chewable 0-01 [id number] tablet by i ty of tablet 00:00: mouth [place] 00 daily. [facility] aspirin 81 2019- Yes [id number] 81mg Take 1 [facility] mg chewable 0-01 [id number] tablet by i ty of tablet 00:00: mouth [place] 00 daily. [facility] aspirin 81 2019- Yes [id number] 81mg Take 1 [facility] mg chewable 0-01 [id number] tablet by i ty of tablet 00:00: mouth [place] 00 daily. [facility] pantoprazol 2019-2021- No [id number] 20mg Take 1 [facility] e 20 mg EC 0- 07-15 tablet by ity of tablet 00:00: 00:00 mouth [place] 00 :00 daily. Medical Take 30 Branch mins before breakfast. atorvastati 2020-0 Yes [facility] ([facility] 6-13 [facility] 40 MG 00:00: of tablet 00 Medicin e atorvastati 2020-0 Yes [facility] n (LIPITOR) 6-13 [facility] 40 MG 00:00: of tablet 00 Medicin e atorvastati 2020-0 Yes [facility] n (LIPITOR) 6-13 [facility] 40 MG 00:00: of tablet 00 Medicin e atorvastati 2020-0 Yes [facility] n (LIPITOR) 6-13 [facility] 40 [...] 00 :00 Medicin e amlodipine 2020-0 Yes [facility] (NORVASC) 5 6-02 [facility] MG tablet 00:00: of 00 Medicin e amlodipine 2020-0 Yes [facility] (NORVASC) 5 6-02 [facility] MG tablet 00:00: of 00 Medicin e amlodipine 2020-0 Yes [facility] (NORVASC) 5 6-02 College MG tablet 00:00: of 00 Medicin e amlodipine 2020-0 Yes [facility] (NORVASC) 5 6-02 [facility] MG tablet 00:00: of 00 Medicin e amlodipine 2020-0 Yes [facility] (NORVASC) 5 6-02 [facility] MG tablet 00:00: of 00 Medicin e amlodipine 2020-0 2- No [facility] (NORVASC) 5 6-02 09-19 College MG tablet [...] 25 mg every day losartan 2020-0 Yes [facility] (COZAAR) 5-30 [facility] 100 MG 00:00: of tablet 00 Medicin e losartan 2020-0 Yes [facility] (COZAAR) 5-30 [facility] 100 MG 00:00: of tablet 00 Medicin e losartan 2020-0 Yes [facility] (COZAAR) 5-30 [facility] 100 MG 00:00: of tablet 00 Medicin e losartan 2020-0 2022- No 50mg 50 mg. Pt [facility] (COZAAR) 30 03-25 takes 50 Colleg e 100 MG 00:00: [...] for premedicat ion hydrALAZINE 2020-0 Yes 50mg Q.[id number] Take [address] [facility] (APRESOLINE 2-17 [id number] [facility] 50 MG 00:00: 3D (three) Medical tablet 00 times Center daily . hydroCHLORO 2020-0 Yes 25mg QD Take [address] [facility] thiazide 2-17 [facility] (HYDRODIURI 00:00: daily. [facility]) 25 MG 00 Center tablet hydrALAZINE 2020-0 Yes 50mg Q.[id number] Take [address] [facility] (APRESOLINE 2-17 [id number] [facility] ) 50 MG 00:00: 3D (three) Medical tablet 00 times Center daily . hydroCHLORO 2020-0 Yes 25mg QD Take [address] [facility] thiazide 2-17 [facility] (HYDRODIURI 00:00: daily. [facility]) 25 MG 00 Center tablet hydrALAZINE 2020-0 Yes 50mg Q.[id number] Take [address] [facility] (APRESOLINE 2-17 [id number] by [facility] ) 50 MG 00:00: 3D (three) Medical tablet 00 times Center daily . hydroCHLORO 2020-0 Yes 25mg QD Take [address] [facility] thiazide 2-17 by [facility] (HYDRODIURI 00:00: daily. [facility]) 25 MG 00 Center tablet hydrALAZINE 2020-0 Yes 50mg Q.[id number] Take [address] [facility] (APRESOLINE 2-17 [id number] by [facility] ) 50 MG 00:00: 3D (three) Medical tablet 00 times Center daily . hydroCHLORO 2020-0 Yes 25mg QD Take [address] [facility] thiazide 2-17 by mouth [facility] (HYDRODIURI 00:00: daily. [facility]) 25 MG 00 Center tablet hydrALAZINE 2020-0 Yes 50mg Q.[id number] Take [address] [facility] (APRESOLINE 2-17 [id number] by mouth [facility] ) 50 MG 00:00: 3D (three) Medical tablet 00 times Center daily . hydroCHLORO 2020-0 Yes 25mg QD Take [address] [facility] thiazide 2-17 by mouth [facility] (HYDRODIURI 00:00: daily. [facility]) 25 MG 00 Center tablet hydrALAZINE 2020-0 Yes 50mg Q.[id number] Take [address] [facility] (APRESOLINE 2-17 [id number] by mouth [facility] ) 50 MG 00:00: 3D (three) Medical tablet 00 times Center daily . hydroCHLORO 2020-0 Yes 25mg QD Take [address] [facility] thiazide 2-17 by mouth [facility] (HYDRODIURI 00:00: daily. [facility]) 25 MG 00 Center tablet hydrALAZINE 2020-0 Yes 50mg Q.[id number] Take [address] [facility] (APRESOLINE 2-17 [id number] by mouth [facility] ) 50 MG 00:00: 3D (three) Medical tablet 00 times Center daily . hydroCHLORO 2020-0 Yes 25mg QD Take [address] [facility] thiazide 2-17 by mouth [facility] (HYDRODIURI 00:00: daily. [facility]) 25 MG 00 Center tablet hydrALAZINE 2020-0 Yes 50mg Q.[id number] Take [address] [facility] (APRESOLINE 2-17 [id number] by mouth [facility] ) 50 MG 00:00: 3D (three) Medical tablet 00 times Center daily . hydroCHLORO 2020-0 Yes 25mg QD Take [address] [facility] thiazide 2-17 by mouth [facility] (HYDRODIURI 00:00: daily. [facility]) 25 MG 00 Center tablet hydrALAZINE 2020-0 Yes 50mg Q.[id number] Take [address] [facility] (APRESOLINE 2-17 [id number] by mouth [facility] ) 50 MG 00:00: 3D (three) Medical tablet 00 times Center daily . hydroCHLORO 2020-0 Yes 25mg QD Take [address] [facility] thiazide 2-17 by mouth [facility] (HYDRODIURI 00:00: daily. [facility]i [facility]) 25 MG 00 Center tablet hydrALAZINE 2020-0 Yes 50mg Q.[id number] Take [address] [facility] (APRESOLINE 2-17 [id number] by mouth [facility] ) 50 MG [...] by mouth [facility] tablet 00:00: daily. [facility] 00 [place] aspirin 81 2019-0 Yes 81mg QD Take [address] MG chewable 6-21 by mouth [facility] tablet 00:00: daily. [address] aspirin 81 2019-0 Yes 81mg QD Take [address] MG chewable 6-21 by mouth [facility] tablet 00:00: daily. [address] aspirin 81 2019-0 Yes 81mg QD Take [address] MG chewable 6-21 by mouth [facility] tablet 00:00: daily. [address] aspirin 81 2019-0 Yes 81mg QD Take [address] MG chewable 6-21 by mouth [facility] tablet 00:00: daily. [address] aspirin 81 2019-0 Yes 81mg QD Take [address] MG chewable 6-21 by mouth [facility] tablet 00:00: daily. [address] aspirin 81 2019-0 Yes 81mg QD Take [address] MG chewable 6-21 by mouth [facility] tablet 00:00: daily. [address] aspirin 81 2019-0 Yes 81mg QD Take [address] MG chewable 6-21 by mouth [facility] tablet 00:00: daily. [address] aspirin 81 2019-0 Yes 81mg QD Take [address] MG chewable 6-21 by mouth [facility] tablet 00:00: daily. [address] aspirin 81 2019-0 Yes 81mg QD Take [address] MG chewable 6-21 by mouth [facility] tablet 00:00: daily. [address] atorvastati 2017-02 Yes 40mg QD Take [address] [facility] n (LIPITOR) 1-30 by mouth [facility] 40 MG 00:00: daily. Medical tablet 00 [place] amLODIPine 2017-02 Yes 2.5mg QD Take 2.[address] (NORVASC) 5 1-30 mg by [facility] tablet 00:00: mouth Medical 00 daily . [place] atorvastati 2017-02 Yes 40mg QD Take [address] [facility] n (LIPITOR) 1-30 by mouth [facility] 40 MG 00:00: daily. Medical tablet 00 [place] amLODIPine 2017-02 Yes 2.5mg QD Take 2.[address] (NORVASC) 5 1-30 mg by [facility] tablet 00:00: mouth Medical 00 daily . [place] atorvastati 2017-02 Yes 40mg QD Take [address] [facility] n (LIPITOR) 1-30 by mouth [facility] 40 MG 00:00: daily. Medical tablet 00 [place] amLODIPine 2017-02 Yes 2.5mg QD Take 2.[address] (NORVASC) 5 1-30 mg by [facility] tablet 00:00: mouth Medical 00 daily . [place] atorvastati 2017-02 Yes 40mg QD Take [address] [facility] n (LIPITOR) 1-30 by mouth [facility] 40 MG 00:00: daily. Medical tablet 00 [place] amLODIPine 2017-02 Yes 2.5mg QD Take 2.[address] (NORVASC) 5 1-30 mg by [facility] tablet 00:00: mouth Medical 00 daily . [place] atorvastati 2017-02 Yes 40mg QD Take [address] [facility] n (LIPITOR) 1-30 by mouth [facility] 40 MG 00:00: daily. Medical tablet 00 [place] amLODIPine 2017-02 Yes 2.5mg QD Take 2.[address] (NORVASC) 5 1-30 mg by [facility] tablet 00:00: mouth Medical 00 daily . [place] atorvastati 2017-02 Yes 40mg QD Take [address] [facility] n (LIPITOR) 1-30 by mouth [facility] 40 MG 00:00: daily. Medical tablet 00 [place] amLODIPine 2017-02 Yes 2.5mg QD Take 2.[address] (NORVASC) 5 1-30 mg by [facility] tablet 00:00: mouth Medical 00 daily . [place] atorvastati 2017-02 Yes 40mg QD Take [address] [facility] n (LIPITOR) 1-30 by mouth [facility] 40 MG 00:00: daily. Medical tablet 00 [place] amLODIPine 2017-02 Yes 2.5mg QD Take 2.[address] (NORVASC) 5 1-30 mg by [facility] tablet 00:00: mouth Medical 00 daily . [place] atorvastati 2017-02 Yes 40mg QD Take [address] [facility] n (LIPITOR) 1-30 by mouth [facility] 40 MG 00:00: daily. Medical tablet 00 [place] amLODIPine 2017-02 Yes 2.5mg QD Take 2.[address] (NORVASC) 5 1-30 mg by [facility] MG tablet 00:00: mouth Medical 00 daily . [place] atorvastati 2017-02 Yes 40mg QD Take [address] [facility] n (LIPITOR) 1-30 by mouth [facility] 40 MG 00:00: daily. Medical tablet 00 [place] amLODIPine 2017-02 Yes 2.5mg QD Take 2.[address] (NORVASC) 5 1-30 mg by [facility] tablet 00:00: mouth Medical 00 daily . [place] atorvastati 2017-02 Yes 40mg QD Take [address] [facility] n (LIPITOR) 1-30 by mouth [facility] 40 MG 00:00: daily. Medical tablet 00 [place] amLODIPine 2017- Yes 2.5mg QD Take 2.[address] (NORVASC) 5 1-30 mg by [facility] tablet 00:00: mouth Medical 00 daily . Center Immunizations Ordered Immunization Filled Immunization Date Status Commen ts Source Name Name Pneumococcal 20 2022-05-17 Completed [facility] y of Conjugate, PCV20 00:00:00 [facility] dical (Prevnar 20) Branch Pneumococcal 20 2022-05-17 Completed Universit y of Conjugate, PCV20 00:00:00 [facility] dical (Prevnar 20) Branch Pneumococcal 20 2022-05-17 Completed Universit y of Conjugate, PCV20 00:00:00 [facility] dical (Prevnar 20) Branch Pneumococcal 20 2022-05-17 Completed Universit y of Conjugate, PCV20 00:00:00 [facility] dical (Prevnar 20) Branch Pneumococcal 20 2022-05-17 Completed Universit y of Conjugate, PCV20 00:00:00 [facility] dical (Prevnar 20) Branch Pneumococcal 20 2022-05-17 Completed Universit y of Conjugate, PCV20 00:00:00 [facility] dical (Prevnar 20) Branch Pneumococcal 20 2022-05-17 Completed Universit y of Conjugate, PCV20 00:00:00 [facility] dical (Prevnar 20) Branch Pneumococcal 20 2022-05-17 Completed Universit y of Conjugate, PCV20 00:00:00 [facility] dical (Prevnar 20) Branch Pneumococcal 20 2022-05-17 Completed Universit y of Conjugate, PCV20 00:00:00 [facility] dical (Prevnar 20) Branch Pneumococcal 20 2022-05-17 Completed Universit y of Conjugate, PCV20 00:00:00 [facility] dical (Prevnar 20) Branch Pneumococcal 20 2022-05-17 Completed Universit y of Conjugate, PCV20 00:00:00 [facility] dical (Prevnar 20) Branch Pneumococcal 20 2022-05-17 Completed Universit y of Conjugate, PCV20 00:00:00 [facility] dical (Prevnar 20) Branch Pneumococcal 20 2022-05-17 [...] Universit y of Conjugate, PCV20 00:00:00 [place] [facility] (Prevnar 20) Branch Pneumococcal 20 2022-05-17 Completed Univers[facility] y of Conjugate, PCV20 00:00:00 [place] [facility] (Prevnar 20) Branch Pneumococcal 20 2022-05-17 Completed Univers[facility] y of Conjugate, PCV20 00:00:00 [place] [facility] (Prevnar 20) Branch Pneumococcal 20 2022-05-17 Completed Universit y of Conjugate, PCV20 00:00:00 [facility] dical (Prevnar 20) Branch Pneumococcal 20 2022-05-17 Completed Universit y of Conjugate, PCV20 00:00:00 [place] [facility] (Prevnar 20) Branch Pneumococcal 20 2022-05-17 Completed Universit y of Conjugate, PCV20 00:00:00 [place] [facility] (Prevnar 20) Branch Pneumococcal 20 2022-05-17 Completed Universit y of Conjugate, PCV20 00:00:00 [place] [facility] (Prevnar 20) Branch Pneumococcal 20 2022-05-17 Completed Universit y of Conjugate, PCV20 00:00:00 [place] [facility] (Prevnar 20) Branch Pneumococcal 20 2022-05-17 Completed Universit y of Conjugate, PCV20 00:00:00 [place] [facility] (Prevnar 20) Branch Pneumococcal 20 2022-05-17 [...] Universit y of Conjugate, PCV20 00:00:00 [place] [facility] (Prevnar 20) Branch Pneumococcal 20 2022-05-17 Completed Univers[facility] y of Conjugate, PCV20 00:00:00 [place] [facility] (Prevnar 20) Branch Pneumococcal 20 2022-05-17 Completed Universit y of Conjugate, PCV20 00:00:00 [place] [facility] (Prevnar 20) Branch Influenza Virus 2021-12-24 [...] Completed Unive rsity of MODERNA 0.25ML 00:00:00 [facility] [place] BOOSTER VACCINE Branch Influenza High Dose 2019-11-08 Completed Unive rsity of [place] 00:00:00 [facility] Influenza High Dose 2019-11-08 Completed Unive rsity of [place] 00:00:00 [facility] Influenza High Dose 2019-11-08 Completed Unive rsity of [place] 00:00:00 [facility] Influenza High Dose 2019-11-08 Completed Unive rsity of [place] 00:00:00 [facility] Influenza High Dose 2019-11-08 Completed Unive rsity of [place] 00:00:00 [facility] Influenza High Dose 2019-11-08 Completed Unive rsity of [place] 00:00:00 [facility] Influenza High Dose 2019-11-08 Completed Unive rsity of [place] 00:00:00 [facility] Influenza High Dose 2019-11-08 Completed Unive rsity of [place] 00:00:00 [facility] Influenza High Dose 2019-11-08 Completed Unive rsity of [facility] 00:00:00 [facility] Influenza High Dose 2019-11-08 Completed Unive rsity of [place] 00:00:00 [facility] Influenza High Dose 2019-11-08 Completed Unive rsity of [facility] 00:00:00 [facility] Influenza High Dose 2019-11-08 Completed Unive rsity of [facility] 00:00:00 [facility] Influenza High Dose 2019-11-08 Completed Unive rsity of [place] 00:00:00 [facility] Influenza High Dose 2019-11-08 Completed Unive rsity of [facility] 00:00:00 [facility] Influenza High Dose 2019-11-08 Completed Unive rsity of [facility] 00:00:00 [facility] Influenza High Dose 2019-11-08 Completed Unive rsity of [facility] 00:00:00 [facility] Influenza High Dose 2019-11-08 Completed Unive rsity of [facility] 00:00:00 [facility] Influenza High Dose 2019-11-08 Completed Unive rsity of [facility] 00:00:00 [facility] Influenza High Dose 2019-11-08 Completed Unive rsity of [facility] 00:00:00 [facility] Influenza High Dose 2019-11-08 Completed Unive rsity of 00:00:00 [facility] Influenza High Dose 2019-11-08 Completed Unive rsity of [facility] 00:00:00 [facility] Influenza High Dose 2019-11-08 Completed Unive rsity of 00:00:00 [facility] Influenza High Dose 2019-11-08 Completed Unive rsity of [facility] 00:00:00 [facility] Influenza High Dose 2019-11-08 Completed Unive rsity of 00:00:00 [facility] Influenza High Dose 2019-11-08 Completed Unive rsity of [facility] 00:00:00 [facility] Influenza High Dose 2019-11-08 Completed Unive rsity of 00:00:00 [facility] Influenza High Dose 2019-11-08 Completed Unive rsity of [facility] 00:00:00 [facility] Influenza High Dose 2019-11-08 Completed Unive rsity of 00:00:00 [facility] Influenza High Dose 2019-11-08 Completed Unive rsity of [facility] 00:00:00 [facility] Influenza High Dose 2019-11-08 Completed Unive rsity of 00:00:00 [facility] Influenza High Dose 2019-11-08 Completed Unive rsity of [facility] 00:00:00 [facility] Influenza High Dose 2019-11-08 Completed Unive rsity of 00:00:00 [facility] Influenza High Dose 2019-11-08 Completed Unive rsity of [facility] 00:00:00 [facility] Influenza High Dose 2019-11-08 Completed Unive rsity of 00:00:00 [facility] Influenza High Dose 2019-11-08 Completed Unive rsity of [facility] 00:00:00 [facility] Influenza High Dose 2019-11-08 Completed Unive rsity of 00:00:00 [facility] Influenza High Dose 2019-11-08 Completed Unive rsity of [facility] 00:00:00 [facility] Influenza High Dose 2019-11-08 Completed Unive rsity of 00:00:00 [facility] Influenza High Dose 2019-11-08 Completed Unive rsity of [facility] 00:00:00 [facility] Influenza High Dose 2019-11-08 Completed Unive rsity of 00:00:00 [facility] Influenza High Dose 2019-11-08 Completed Unive rsity of [facility] 00:00:00 [facility] Influenza High Dose 2019-11-08 Completed Unive rsity of 00:00:00 [facility] Influenza High Dose 2019-11-08 Completed Unive rsity of [facility] 00:00:00 [facility] Influenza High Dose 2019-11-08 Completed Unive rsity of 00:00:00 [facility] Influenza High Dose 2019-11-08 Completed Unive rsity of [facility] 00:00:00 [facility] Influenza High Dose 2019-11-08 Completed Unive rsity of 00:00:00 [facility] Influenza High Dose 2019-11-08 Completed Unive rsity of [facility] 00:00:00 [facility] Influenza High Dose 2019-11-08 Completed Unive rsity of 00:00:00 [facility] Influenza High Dose 2019-11-08 Completed Unive rsity of [facility] 00:00:00 [facility] Influenza High Dose 2019-11-08 Completed Unive rsity of 00:00:00 [facility] Influenza High Dose 2019-11-08 Completed Unive rsity of [facility] 00:00:00 [facility] Influenza High Dose 2019-11-08 Completed Unive rsity of 00:00:00 [facility] Influenza High Dose 2019-11-08 Completed Unive rsity of [facility] 00:00:00 [facility] Influenza High Dose 2019-11-08 Completed Unive rsity of 00:00:00 [facility] Influenza High Dose 2019-11-08 Completed Unive rsity of [facility] 00:00:00 [facility] Influenza High Dose 2019-11-08 Completed Unive rsity of 00:00:00 [facility] Influenza High Dose 2019-11-08 Completed Unive rsity of [facility] 00:00:00 [facility] Influenza High Dose 2019-11-08 Completed Unive rsity of 00:00:00 [facility] Influenza High Dose 2019-11-08 Completed Unive rsity of [facility] 00:00:00 [facility] Influenza High Dose 2019-11-08 Completed Unive rsity of 00:00:00 [facility] Influenza High Dose 2019-11-08 Completed Unive rsity of [facility] 00:00:00 [facility] Influenza High Dose 2019-11-08 Completed Unive rsity of 00:00:00 [facility] Influenza High Dose 2019-11-08 Completed Unive rsity of [facility] 00:00:00 [facility] Influenza High Dose 2019-11-08 Completed Unive rsity of 00:00:00 [facility] Influenza High Dose 2019-11-08 Completed Unive rsity of [facility] 00:00:00 [facility] Influenza High Dose 2019-11-08 Completed Unive rsity of 00:00:00 [facility] Influenza High Dose 2019-11-08 Completed [facility]ive [facility]ity of [facility] 00:00:00 [facility] Influenza High Dose 2019-11-08 Completed Unive rsity of 00:00:00 [facility] Influenza High Dose 2019-11-08 Completed Unive [facility]ity of [facility] 00:00:00 [facility] Influenza High Dose 2019-11-08 Completed Unive rsity of 00:00:00 [facility] Influenza High Dose 2019-11-08 Completed Unive rsity of [facility] 00:00:00 [facility] Influenza High Dose 2019-11-08 Completed Unive rsity of 00:00:00 [facility] Influenza High Dose 2019-11-08 Completed Unive [facility] of [facility] 00:00:00 [facility] Influenza High Dose 2019-11-08 Completed Unive rsity of 00:00:00 [facility] Influenza High Dose 2019-11-08 Completed Unive [facility]ity of [facility] 00:00:00 [facility] Influenza High Dose 2019-11-08 Completed Unive rsity of 00:00:00 [facility] Influenza High Dose 2019-11-08 Completed Unive [facility] of [facility] 00:00:00 [facility] Influenza High Dose 2019-11-08 Completed Unive rsity of 00:00:00 [facility] Influenza High Dose 2019-11-08 [facility]00 [facility] Influenza High Dose 2019-11-08 Completed [facility] 00[facility]00:00 [facility] Influenza High Dose 2019-11-08 Completed [facility] 00:00[facility]00 [facility] Influenza High Dose 2019-11-08 Completed [facility] 00:00:00 [facility] Influenza High Dose 2019-11-08 Completed [facility] 00[facility]00:00 [facility] Influenza High Dose 2019-11-08 Completed [facility] 00:00:00 [facility] Influenza High Dose 2019-11-08 Completed [facility] 00:00:00 [facility] Influenza High Dose 2019-11-08 Completed [facility] 00:00:00 [facility] Influenza High Dose 2019-11-08 Completed [facility] 00[facility]00:00 [facility] Influenza High Dose 2019-11-08 Completed [facility] 00:00:00 [facility] Influenza High Dose 2019-11-08 Completed [facility] 00[facility]00:00 [facility] Influenza High Dose 2019-11-08 Completed [facility] 00:00:00 [facility] Influenza High Dose 2019-11-08 Completed [facility] 00:00:00 [facility] Influenza High Dose 2019-11-08 Completed [facility] 00:00:00 [facility] Influenza High Dose 2019-11-08 Completed [facility] 00[facility]00:00 [facility] Influenza High Dose 2019-11-08 Completed [facility] 00:00:00 [facility] Influenza High Dose 2019-11-08 Completed [facility] 00[facility]00:00 [facility] Influenza High Dose 2019-11-08 Completed [facility] 00:00:00 [facility] Influenza High Dose 2019-11-08 Completed [facility] 00:00:00 [facility] Influenza High Dose 2019-11-08 Completed [facility] 00:00:00 [facility] Influenza High Dose 2019-11-08 Completed [facility] 00:00:00 [facility] Influenza High Dose 2019-11-08 Completed [facility] 00:00:00 [facility] Influenza High Dose 2019-11-08 Completed [facility] 00:00:00 [facility] Influenza High Dose 2019-11-08 Completed [facility] 00:00:00 [facility] Influenza High Dose 2019-11-08 Completed [facility] 00:00:00 [facility] Influenza High Dose 2019-11-08 Completed [facility] 00:00:00 [facility] Influenza High Dose 2019-11-08 Completed [facility] 00:00:00 [facility] Influenza High Dose 2019-11-08 Completed [facility] 00:00:00 [facility] Influenza High Dose 2019-11-08 Completed [facility] 00:00:00 [facility] Influenza High Dose 2019-11-08 Completed [facility] 00:00:00 [facility] Influenza High Dose 2019-11-08 Completed [facility] 00:00:00 [facility] Influenza High Dose 2019-11-08 Completed [facility] 00:00:00 [facility] Influenza High Dose 2019-11-08 Completed [facility] 00:00:00 [facility] Influenza High Dose 2019-11-08 Completed [facility] 00:00:00 [facility] Influenza High Dose 2019-11-08 Completed [facility] 00:00:00 [facility] Influenza High Dose 2019-11-08 Completed [facility] 00:00:00 [facility] Influenza High Dose 2019-11-08 Completed [facility] 00:00:00 [facility] Influenza High Dose 2019-11-08 Completed [facility] 00:00:00 [facility] Influenza High Dose 2019-11-08 Completed [facility] 00:00:00 [facility] Influenza High Dose 2019-11-08 Completed [facility] 00:00:00 [facility] Influenza High Dose 2019-11-08 Completed [facility] 00:00:00 [facility] Influenza High Dose 2019-11-08 Completed [facility] 00:00:00 [facility] Influenza High Dose 2019-11-08 Completed [facility] 00:00:00 [facility] Influenza High Dose 2019-11-08 Completed [facility] 00:00:00 [facility] Influenza High Dose 2019-11-08 Completed [facility] 00:00:00 [facility] Influenza High Dose 2019-11-08 Completed [facility] 00:00:00 [facility] Influenza High Dose 2019-11-08 Completed [facility] 00:00:00 [facility] Influenza High Dose 2019-11-08 Completed [facility] 00:00:00 [facility] Influenza High Dose 2019-11-08 Completed [facility] 00:00:00 [facility] Influenza High Dose 2019-11-08 Completed [facility] 00:00:00 [facility] Influenza High Dose 2019-11-08 Completed [facility] 00:00:00 [facility] Influenza High Dose 2019-11-08 Completed [facility] 00:00:00 [facility] Influenza High Dose 2019-11-08 Completed [facility] 00:00:00 [facility] Influenza High Dose 2019-11-08 Completed [facility] 00:00:00 [facility] Influenza High Dose 2019-11-08 Completed [facility] 00:00:00 [facility] Influenza High Dose 2019-11-08 Completed [facility] 00:00:00 [facility] Influenza High Dose 2019-11-08 Completed [facility] 00:00:00 [facility] Influenza High Dose 2019-11-08 Completed [facility] 00:00:00 [facility] Influenza High Dose 2019-11-08 Completed [facility] 00:00:00 [facility] Influenza High Dose 2019-11-08 Completed [facility] 00:00:00 [facility] Influenza High Dose 2019-11-08 Completed [facility] 00:00:00 [facility] Influenza High Dose 2019-11-08 Completed [facility] 00:00:00 [facility] Influenza High Dose 2019-11-08 Completed [facility] 00:00:00 [facility] Influenza High Dose 2019-11-08 Completed [facility] 00:00:00 [facility] Influenza High Dose 2019-11-08 Completed [facility] 00:00:00 [facility] Influenza High Dose 2019-11-08 Completed [facility] 00:00:00 [facility] Influenza High Dose 2019-11-08 Completed [facility] 00:00:00 [facility] Influenza High Dose 2019-11-08 Completed [facility] 00:00:00 [facility] Influenza High Dose 2019-11-08 Completed [facility] 00:00:00 [facility] Influenza High Dose 2019-11-08 Completed [facility] 00:00:00 [facility] Influenza High Dose 2019-11-08 Completed [facility] 00:00:00 [facility] Influenza High Dose 2019-11-08 Completed [facility] 00:00:00 [facility] Influenza High Dose 2019-11-08 Completed [facility] 00:00:00 [facility] Influenza High Dose 2019-11-08 Completed [facility] 00:00:00 [facility] Influenza High Dose 2019-11-08 Completed [facility] 00:00:00 [facility] Influenza High Dose 2019-11-08 Completed [facility] 00:00:00 [facility] Influenza High Dose 2019-11-08 Completed [facility] 00:00:00 [facility] Influenza High Dose 2019-11-08 Completed [facility] 00:00:00 [facility] Influenza High Dose 2019-11-08 Completed [facility] 00:00:00 [facility] Influenza High Dose 2019-11-08 Completed [facility] 00:00:00 [facility] Influenza High Dose 2019-11-08 Completed [facility] 00:00:00 [facility] Influenza High Dose 2019-11-08 Completed [facility] 00:00:00 [facility] Influenza High Dose 2019-11-08 Completed [facility] 00:00:00 [facility] Influenza High Dose 2019-11-08 Completed [facility] 00:00:00 [facility] Influenza High Dose 2019-11-08 Completed [facility] 00:00:00 [facility] Influenza High Dose 2019-11-08 Completed [facility] 00:00:00 [facility] Influenza High Dose 2019-11-08 Completed [facility] 00:00:00 [facility] Influenza High Dose 2019-11-08 Completed [facility] 00:00:00 [facility] Influenza High Dose 2019-11-08 Completed [facility] 00:00:00 [facility] Influenza High Dose 2019-11-08 Completed [facility] 00:00:00 [facility] Influenza Hd 2019-11-08 Completed [facility] Influenza Hd 2019-11-08 Completed [facility] 00:00:00 [facility] Influenza Hd 2019-11-08 Completed [facility] 00:00:00 [facility] Influenza High Dose 2019-02-13 Completed [facility] 00:00:00 [facility] Influenza High Dose 2019-02-13 Completed [facility] 00:00:00 [facility] Influenza High Dose 2019-02-13 Completed [facility] 00:00:00 [facility] Influenza High Dose 2019-02-13 Completed [facility] 00:00:00 [facility] Influenza High Dose 2019-02-13 Completed [facility] 00:00:00 [facility] Influenza High Dose 2019-02-13 Completed [facility] 00:00:00 [facility] Influenza High Dose 2019-02-13 Completed [facility] 00:00:00 [facility] Influenza High Dose 2019-02-13 Completed [facility] 00:00:00 [facility] Influenza High Dose 2019-02-13 Completed [facility] 00:00:00 [facility] Influenza High Dose 2019-02-13 Completed [facility] 00:00:00 [facility] Influenza High Dose 2019-02-13 Completed [facility] 00:00:00 [facility] Influenza High Dose 2019-02-13 Completed [facility] 00:00:00 [facility] Influenza High Dose 2019-02-13 Completed [facility] 00:00:00 [facility] Influenza High Dose 2019-02-13 Completed [facility] 00:00:00 [facility] Influenza High Dose 2019-02-13 Completed [facility] 00:00:00 [facility] Influenza High Dose 2019-02-13 Completed [facility] 00:00:00 [facility] Influenza High Dose 2019-02-13 Completed [facility] 00:00:00 [facility] Influenza High Dose 2019-02-13 Completed [facility] 00:00:00 [facility] Influenza High Dose 2019-02-13 Completed [facility] 00:00:00 [facility] Influenza High Dose 2019-02-13 Completed [facility] 00:00:00 [facility] Influenza High Dose 2019-02-13 Completed [facility] 00:00:00 [facility] Influenza High Dose 2019-02-13 Completed [facility] 00:00:00 [facility] Influenza High Dose 2019-02-13 Completed [facility] 00:00:00 [facility] Influenza High Dose 2019-02-13 Completed [facility] 00:00:00 [facility] Influenza High Dose 2019-02-13 Completed [facility] 00:00:00 [facility] Influenza High Dose 2019-02-13 Completed [facility] 00:00:00 [facility] Influenza High Dose 2019-02-13 Completed [facility] 00:00:00 [facility] Influenza High Dose 2019-02-13 Completed [facility] 00:00:00 [facility] Influenza High Dose 2019-02-13 Completed [facility] 00:00:00 [facility] Influenza High Dose 2019-02-13 Completed [facility] 00:00:00 [facility] Influenza High Dose 2019-02-13 Completed [facility] 00:00:00 [facility] Influenza High Dose 2019-02-13 Completed [facility] 00:00:00 [facility] Influenza High Dose 2019-02-13 Completed [facility] 00:00:00 [facility] Influenza High Dose 2019-02-13 Completed [facility] 00:00:00 [facility] Influenza High Dose 2019-02-13 Completed [facility] 00:00:00 [facility] Influenza High Dose 2019-02-13 Completed [facility] 00:00:00 [facility] Influenza High Dose 2019-02-13 Completed [facility] 00:00:00 [facility] Influenza High Dose 2019-02-13 Completed [facility] 00:00:00 [facility] Influenza High Dose 2019-02-13 Completed [facility] 00:00:00 [facility] Influenza High Dose 2019-02-13 Completed [facility] 00:00:00 [facility] Influenza High Dose 2019-02-13 Completed [facility] 00:00:00 [facility] Influenza High Dose 2019-02-13 Completed [facility] 00:00:00 [facility] Influenza High Dose 2019-02-13 Completed [facility] 00:00:00 [facility] Influenza High Dose 2019-02-13 Completed [facility] 00:00:00 [facility] Influenza High Dose 2019-02-13 Completed [facility] 00:00:00 [facility] Influenza High Dose 2019-02-13 Completed [facility] 00:00:00 [facility] Influenza High Dose 2019-02-13 Completed [facility] 00:00:00 [facility] Influenza High Dose 2019-02-13 Completed [facility] 00:00:00 [facility] Influenza High Dose 2019-02-13 Completed [facility] 00:00:00 [facility] Influenza High Dose 2019-02-13 Completed [facility] 00:00:00 [facility] Influenza High Dose 2019-02-13 Completed [facility] 00:00:00 [facility] Influenza High Dose 2019-02-13 Completed [facility] 00:00:00 [facility] Influenza High Dose 2019-02-13 Completed [facility] 00:00:00 [facility] Influenza High Dose 2019-02-13 Completed [facility] 00:00:00 [facility] Influenza High Dose 2019-02-13 Completed [facility] 00:00:00 [facility] Influenza High Dose 2019-02-13 Completed [facility] 00:00:00 [facility] Influenza High Dose 2019-02-13 Completed [facility] 00:00:00 [facility] Influenza High Dose 2019-02-13 Completed [facility] 00:00:00 [facility] Influenza High Dose 2019-02-13 Completed [facility] 00:00:00 [facility] Influenza High Dose 2019-02-13 Completed [facility] 00:00:00 [facility] Influenza High Dose 2019-02-13 Completed [facility] 00:00:00 [facility] Influenza High Dose 2019-02-13 Completed [facility] 00:00:00 [facility] Influenza High Dose 2019-02-13 Completed [facility] 00:00:00 [facility] Influenza High Dose 2019-02-13 Completed [facility] 00:00:00 [facility] Influenza High Dose 2019-02-13 Completed [facility] 00:00:00 [facility] Influenza High Dose 2019-02-13 Completed [facility] 00:00:00 [facility] Influenza High Dose 2019-02-13 Completed [facility] 00:00:00 [facility] Influenza High Dose 2019-02-13 Completed [facility] 00:00:00 [facility] Influenza High Dose 2019-02-13 Completed [facility] 00:00:00 [facility] Influenza High Dose 2019-02-13 Completed [facility] 00:00:00 [facility] Influenza High Dose 2019-02-13 Completed [facility] 00:00:00 [facility] Influenza High Dose 2019-02-13 Completed [facility] 00:00:00 [facility] Influenza High Dose 2019-02-13 Completed [facility] 00:00:00 [facility] Influenza High Dose 2019-02-13 Completed [facility] 00:00:00 [facility] Influenza High Dose 2019-02-13 Completed [facility] 00:00:00 [facility] Influenza High Dose 2019-02-13 Completed [facility] 00:00:00 [facility] Influenza High Dose 2019-02-13 Completed [facility] 00:00:00 [facility] Influenza High Dose 2019-02-13 Completed [facility] 00:00:00 [facility] Influenza High Dose 2019-02-13 Completed [facility] 00:00:00 [facility] Influenza High Dose 2019-02-13 Completed [facility] 00:00:00 [facility] Influenza High Dose 2019-02-13 Completed [facility] 00:00:00 [facility] Influenza High Dose 2019-02-13 Completed [facility] 00:00:00 [facility] Influenza High Dose 2019-02-13 Completed [facility] 00:00:00 [facility] Influenza High Dose 2019-02-13 Completed [facility] 00:00:00 [facility] Influenza High Dose 2019-02-13 Completed [facility] 00:00:00 [facility] Influenza High Dose 2019-02-13 Completed [facility] 00:00:00 [facility] Influenza High Dose 2019-02-13 Completed [facility] 00:00:00 [facility] Influenza High Dose 2019-02-13 Completed [facility] 00:00:00 [facility] Influenza High Dose 2019-02-13 Completed [facility] 00:00:00 [facility] Influenza High Dose 2019-02-13 Completed [facility] 00:00:00 [facility] Influenza High Dose 2019-02-13 Completed [facility] 00:00:00 [facility] Influenza High Dose 2019-02-13 Completed [facility] 00:00:00 [facility] Influenza High Dose 2019-02-13 Completed [facility] 00:00:00 [facility] Influenza Hd 2019-02-13 Completed [facility] 00:00:00 [facility] Influenza Hd 2019-02-13 Completed [facility] 00:00:00 [facility] Influenza Hd 2019-02-13 Completed [facility] 00:00:00 [facility] TDAP 2017-11-10 Completed [facility] 00:00:00 [facility] TDAP 2017-11-10 Completed [facility] 00:00:00 [facility] TDAP 2017-11-10 Completed [facility] 00:00:00 [facility] TDAP 2017-11-10 Completed [facility] 00:00:00 [facility] TDAP 2017-11-10 Completed [facility] 00:00:00 [facility] TDAP 2017-11-10 Completed [facility] 00:00:00 [facility] TDAP 2017-11-10 Completed [facility] 00:00:00 [facility] TDAP 2017-11-10 Completed [facility] 00:00:00 [facility] TDAP 2017-11-10 Completed [facility] 00:00:00 [facility] TDAP 2017-11-10 Completed [facility] 00:00:00 [facility] TDAP 2017-11-10 Completed [facility] 00:00:00 [facility] TDAP 2017-11-10 Completed [facility] 00:00:00 [facility] TDAP 2017-11-10 Completed [facility] 00:00:00 [facility] TDAP 2017-11-10 Completed [facility] 00:00:00 [facility] TDAP 2017-11-10 Completed [facility] 00:00:00 [facility] TDAP 2017-11-10 Completed [facility] 00:00:00 [facility] TDAP 2017-11-10 Completed [facility] 00:00:00 [facility] TDAP 2017-11-10 Completed [facility] 00:00:00 [facility] TDAP 2017-11-10 Completed [facility] 00:00:00 [facility] TDAP 2017-11-10 Completed [facility] 00:00:00 [facility] TDAP 2017-11-10 Completed [facility] 00:00:00 [facility] TDAP 2017-11-10 Completed [facility] 00:00:00 [facility] TDAP 2017-11-10 Completed [facility] 00:00:00 [facility] TDAP 2017-11-10 Completed [facility] 00:00:00 [facility] TDAP 2017-11-10 Completed [facility] 00:00:00 [facility] TDAP 2017-11-10 Completed [facility] 00:00:00 [facility] TDAP 2017-11-10 Completed [facility] 00:00:00 [facility] TDAP 2017-11-10 Completed [facility] 00:00:00 [facility] TDAP 2017-11-10 Completed [facility] 00:00:00 [facility] TDAP 2017-11-10 Completed [facility] 00:00:00 [facility] TDAP 2017-11-10 Completed [facility] 00:00:00 [facility] TDAP 2017-11-10 Completed [facility] 00:00:00 [facility] TDAP 2017-11-10 Completed [facility] 00:00:00 [facility] TDAP 2017-11-10 Completed [facility] 00:00:00 [facility] TDAP 2017-11-10 Completed [facility] 00:00:00 [facility] TDAP 2017-11-10 Completed [facility] 00:00:00 [facility] TDAP 2017-11-10 Completed [facility] 00:00:00 [facility] TDAP 2017-11-10 Completed [facility] 00:00:00 [facility] TDAP 2017-11-10 Completed [facility] 00:00:00 [facility] TDAP 2017-11-10 Completed [facility] 00:00:00 [facility] TDAP 2017-11-10 Completed [facility] 00:00:00 [facility] TDAP 2017-11-10 Completed [facility] 00:00:00 [facility] TDAP 2017-11-10 Completed [facility] 00:00:00 [facility] TDAP 2017-11-10 Completed [facility] 00:00:00 [facility] TDAP 2017-11-10 Completed [facility] 00:00:00 [facility] TDAP 2017-11-10 Completed [facility] 00:00:00 [facility] TDAP 2017-11-10 Completed [facility] 00:00:00 [facility] TDAP 2017-11-10 Completed [facility] 00:00:00 [facility] TDAP 2017-11-10 Completed [facility] 00:00:00 [facility] TDAP 2017-11-10 Completed [facility] 00:00:00 [facility] TDAP 2017-11-10 Completed [facility] 00:00:00 [facility] TDAP 2017-11-10 Completed [facility] 00:00:00 [facility] TDAP 2017-11-10 Completed [facility] 00:00:00 [facility] TDAP 2017-11-10 Completed [facility] 00:00:00 [facility] TDAP 2017-11-10 Completed [facility] 00:00:00 [facility] TDAP 2017-11-10 Completed [facility] 00:00:00 [facility] TDAP 2017-11-10 Completed [facility] 00:00:00 [facility] TDAP 2017-11-10 Completed [facility] 00:00:00 [facility] TDAP 2017-11-10 Completed [facility] 00:00:00 [facility] TDAP 2017-11-10 Completed [facility] 00:00:00 [facility] TDAP 2017-11-10 Completed [facility] 00:00:00 [facility] TDAP 2017-11-10 Completed [facility] 00:00:00 [facility] TDAP 2017-11-10 Completed [facility] 00:00:00 [facility] TDAP 2017-11-10 Completed [facility] 00:00:00 [facility] TDAP 2017-11-10 Completed [facility] 00:00:00 [facility] TDAP 2017-11-10 Completed [facility] 00:00:00 [facility] TDAP 2017-11-10 Completed [facility] 00:00:00 [facility] TDAP 2017-11-10 Completed [facility] 00:00:00 [facility] TDAP 2017-11-10 Completed [facility] 00:00:00 [facility] TDAP 2017-11-10 Completed [facility] 00:00:00 [facility] TDAP 2017-11-10 Completed [facility] 00:00:00 [facility] TDAP 2017-11-10 Completed [facility] 00:00:00 [facility] TDAP 2017-11-10 Completed [facility] 00:00:00 [facility] TDAP 2017-11-10 Completed [facility] 00:00:00 [facility] TDAP 2017-11-10 Completed [facility] 00:00:00 [facility] TDAP 2017-11-10 Completed [facility] 00:00:00 [facility] TDAP 2017-11-10 Completed [facility] 00:00:00 [facility] TDAP 2017-11-10 Completed [facility] 00:00:00 [facility] TDAP 2017-11-10 Completed [facility] 00:00:00 [facility] TDAP 2017-11-10 Completed [facility] 00:00:00 [facility] TDAP 2017-11-10 Completed [facility] 00:00:00 [facility] TDAP 2017-11-10 Completed [facility] 00:00:00 [facility] TDAP 2017-11-10 Completed [facility] 00:00:00 [facility] TDAP 2017-11-10 Completed [facility] 00:00:00 [facility] TDAP 2017-11-10 Completed [facility] 00:00:00 [facility] TDAP 2017-11-10 Completed [facility] 00:00:00 [facility] TDAP 2017-11-10 Completed [facility] 00:00:00 [facility] TDAP 2017-11-10 Completed [facility] 00:00:00 [facility] TDAP 2017-11-10 Completed [facility] 00:00:00 [facility] TDAP 2017-11-10 Completed [facility] 00:00:00 [facility] TDAP 2017-11-10 Completed [facility] 00:00:00 [facility] TDAP 2017-11-10 Completed [facility] of 00:00:00 [facility] TDAP 2017-11-10 Completed [facility] of 00:00:00 [facility] Tdap 2017-11-10 Completed [facility] 00:00:00 of Medicine Tdap 2017-11-10 Completed [facility] 00:00:00 of Medicine Tdap 2017-11-10 Completed [facility] 00:00:00 of Medicine Pneumococcal 2017-06-09 Completed [...] ical PPSV23 (PNEUMOVAX) Branch Pneumococcal 2017-06-09 Completed [facility] Polysaccharide 00:00:00 of Medicin e Pneumococcal 2017-06-09 Completed [facility] Polysaccharide 00:00:00 of Medicin e Pneumococcal 2017-06-09 Completed [facility] Polysaccharide 00:00:00 of Medicin e Influenza High Dose 2016-11-14 Completed Unive rsity of 00:00:00 [facility] Influenza High Dose 2016-11-14 Completed Unive rsity of 00:00:00 [facility] Influenza High Dose 2016-11-14 Completed Unive rsity of 00:00:00 [facility] Influenza High Dose 2016-11-14 Completed Unive rsity of 00:00:00 [facility] Influenza High Dose 2016-11-14 Completed Unive rsity of 00:00:00 [facility] Influenza High Dose 2016-11-14 Completed Unive rsity of 00:00:00 [facility] Influenza High Dose 2016-11-14 Completed Unive rsity of 00:00:00 [facility] Influenza High Dose 2016-11-14 Completed Unive rsity of 00:00:00 [facility] Influenza High Dose 2016-11-14 Completed Unive rsity of 00:00:00 [facility] Influenza High Dose 2016-11-14 Completed Unive rsity of 00:00:00 [facility] Influenza High Dose 2016-11-14 Completed Unive rsity of 00:00:00 [facility] Influenza High Dose 2016-11-14 Completed Unive rsity of 00:00:00 [facility] Influenza High Dose 2016-11-14 Completed Unive rsity of 00:00:00 [facility] Influenza High Dose 2016-11-14 Completed Unive rsity of 00:00:00 [facility] Influenza High Dose 2016-11-14 Completed Unive rsity of 00:00:00 [facility] Influenza High Dose 2016-11-14 Completed Unive rsity of 00:00:00 [facility] Influenza High Dose 2016-11-14 Completed Unive rsity of 00:00:00 [facility] Influenza High Dose 2016-11-14 Completed Unive rsity of 00:00:00 [facility] Influenza High Dose 2016-11-14 Completed Unive rsity of 00:00:00 [facility] Influenza High Dose 2016-11-14 Completed Unive rsity of 00:00:00 [facility] Influenza High Dose 2016-11-14 Completed Unive rsity of 00:00:00 [facility] Influenza High Dose 2016-11-14 Completed Unive rsity of 00:00:00 [facility] Influenza High Dose 2016-11-14 Completed Unive rsity of 00:00:00 [facility] Influenza High Dose 2016-11-14 Completed Unive rsity of 00:00:00 [facility] Influenza High Dose 2016-11-14 Completed Unive rsity of 00:00:00 [facility] Influenza High Dose 2016-11-14 Completed Unive rsity of 00:00:00 [facility] Influenza High Dose 2016-11-14 Completed Unive rsity of 00:00:00 [facility] Influenza High Dose 2016-11-14 Completed Unive rsity of 00:00:00 [facility] Influenza High Dose 2016-11-14 Completed Unive rsity of 00:00:00 [facility] Influenza High Dose 2016-11-14 Completed Unive rsity of 00:00:00 [facility] Influenza High Dose 2016-11-14 Completed Unive rsity of 00:00:00 [facility] Influenza High Dose 2016-11-14 Completed Unive rsity of 00:00:00 [facility] Influenza High Dose 2016-11-14 Completed Unive rsity of 00:00:00 [facility] Influenza High Dose 2016-11-14 Completed Unive rsity of 00:00:00 [facility] Influenza High Dose 2016-11-14 Completed Unive rsity of 00:00:00 [facility] Influenza High Dose 2016-11-14 Completed Unive rsity of 00:00:00 [facility] Influenza High Dose 2016-11-14 Completed Unive rsity of 00:00:00 [facility] Influenza High Dose 2016-11-14 Completed Unive rsity of 00:00:00 [facility] Influenza High Dose 2016-11-14 Completed Unive rsity of 00:00:00 [facility] Influenza High Dose 2016-11-14 Completed Unive rsity of 00:00:00 [facility] Influenza High Dose 2016-11-14 Completed Unive rsity of 00:00:00 [facility] Influenza High Dose 2016-11-14 Completed Unive rsity of 00:00:00 [facility] Influenza High Dose 2016-11-14 Completed Unive rsity of 00:00:00 [facility] Influenza High Dose 2016-11-14 Completed Unive rsity of 00:00:00 [facility] Influenza High Dose 2016-11-14 Completed Unive rsity of 00:00:00 [facility] Influenza High Dose 2016-11-14 Completed Unive rsity of 00:00:00 [facility] Influenza High Dose 2016-11-14 Completed Unive rsity of 00:00:00 [facility] Influenza High Dose 2016-11-14 Completed Unive rsity of 00:00:00 [facility] Influenza High Dose 2016-11-14 Completed Unive rsity of 00:00:00 [facility] Influenza High Dose 2016-11-14 Completed Unive rsity of 00:00:00 [facility] Influenza High Dose 2016-11-14 Completed Unive rsity of 00:00:00 [facility] Influenza High Dose 2016-11-14 Completed Unive rsity of 00:00:00 [facility] Influenza High Dose 2016-11-14 Completed Unive rsity of 00:00:00 [facility] Influenza High Dose 2016-11-14 Completed Unive rsity of 00:00:00 [facility] Influenza High Dose 2016-11-14 Completed Unive rsity of 00:00:00 [facility] Influenza High Dose 2016-11-14 Completed Unive rsity of 00:00:00 [facility] Influenza High Dose 2016-11-14 Completed Unive rsity of 00:00:00 [facility] Influenza High Dose 2016-11-14 Completed Unive rsity of 00:00:00 [facility] Influenza High Dose 2016-11-14 Completed Unive rsity of 00:00:00 [facility] Influenza High Dose 2016-11-14 Completed Unive rsity of 00:00:00 [facility] Influenza High Dose 2016-11-14 Completed Unive rsity of 00:00:00 [facility] Influenza High Dose 2016-11-14 Completed Unive rsity of 00:00:00 [facility] Influenza High Dose 2016-11-14 Completed Unive rsity of 00:00:00 [facility] Influenza High Dose 2016-11-14 Completed Unive rsity of 00:00:00 [facility] Influenza High Dose 2016-11-14 Completed Unive rsity of 00:00:00 [facility] Influenza High Dose 2016-11-14 Completed Unive rsity of 00:00:00 [facility] Influenza High Dose 2016-11-14 Completed Unive rsity of 00:00:00 [facility] Influenza High Dose 2016-11-14 Completed Unive rsity of 00:00:00 [facility] Influenza High Dose 2016-11-14 Completed Unive rsity of 00:00:00 [facility] Influenza High Dose 2016-11-14 Completed Unive rsity of 00:00:00 [facility] Influenza High Dose 2016-11-14 Completed Unive rsity of 00:00:00 [facility] Influenza High Dose 2016-11-14 Completed Unive rsity of 00:00:00 [facility] Influenza High Dose 2016-11-14 Completed Unive rsity of 00:00:00 [facility] Influenza High Dose 2016-11-14 Completed Unive rsity of 00:00:00 [facility] Influenza High Dose 2016-11-14 Completed Unive rsity of 00:00:00 [facility] Influenza High Dose 2016-11-14 Completed Unive rsity of 00:00:00 [facility] Influenza High Dose 2016-11-14 Completed Unive rsity of 00:00:00 [facility] Influenza High Dose 2016-11-14 Completed Unive rsity of 00:00:00 [facility] Influenza High Dose 2016-11-14 Completed Unive rsity of 00:00:00 [facility] Influenza High Dose 2016-11-14 Completed Unive rsity of 00:00:00 [facility] Influenza High Dose 2016-11-14 Completed Unive rsity of 00:00:00 [facility] Influenza High Dose 2016-11-14 Completed Unive rsity of 00:00:00 [facility] Influenza High Dose 2016-11-14 Completed Unive rsity of 00:00:00 [facility] Influenza High Dose 2016-11-14 Completed Unive rsity of 00:00:00 [facility] Influenza High Dose 2016-11-14 Completed Unive rsity of 00:00:00 [facility] Influenza High Dose 2016-11-14 Completed Unive rsity of 00:00:00 [facility] Influenza High Dose 2016-11-14 Completed Unive rsity of 00:00:00 [facility] Influenza High Dose 2016-11-14 Completed Unive rsity of 00:00:00 [facility] Influenza High Dose 2016-11-14 Completed Unive rsity of 00:00:00 [facility] Influenza High Dose 2016-11-14 Completed Unive rsity of 00:00:00 [facility] Influenza High Dose 2016-11-14 Completed Unive rsity of 00:00:00 [facility] Influenza High Dose 2016-11-14 Completed Unive rsity of 00:00:00 [facility] Influenza High Dose 2016-11-14 Completed Unive rsity of 00:00:00 [facility] Influenza Hd 2016-11-14 Completed [facility] 00:00:00 of Medicine Influenza Hd 2016-11-14 Completed [facility] 00:00:00 of Medicine Influenza Hd 2016-11-14 Completed [facility] 00:00:00 of Medicine Vital Signs Vital Name Observation Time Observation Value Comments Source HEIGHT 2019-07-08 00:00:00 147.3 cm WEIGHT 2019-07-08 00:00:00 57.743 kg Systolic blood 2022-07-12 20:34:00 117 mm[Hg] Univer sity of [facility] Diastolic blood 2022-07-12 20:34:00 54 mm[Hg] Unive rsity of pressure [facility] Heart rate 2022-07-12 20:34:00 87 /min [facility] Body temperature 2022-07-12 20:34:00 36.56 Monique [facility] 2022-07-12 20:34:00 17 /min [facility] weight 2022-07-12 20:34:00 63.957 kg [facility] BMI 2022-07-12 20:34:00 24.51 kg/m2 [facility] Oxygen saturation in 2022-07-12 20:34:00 96 /min [facility] Arterial blood by [facility] Pulse oximetry Branch Systolic blood 2022-06-28 15:18:00 130 mm[Hg] Univer sity of pressure [facility] Diastolic blood 2022-06-28 15:18:00 55 mm[Hg] Unive rsity of pressure [facility] Heart rate 2022-06-28 14:36:00 75 /min [facility] Respiratory rate 2022-06-28 14:36:00 20 /min Univ ersity of [facility] Body height 2022-06-28 14:36:00 161.5 cm [facility] Body weight 2022-06-28 14:36:00 65 kg [facility] BMI 2022-06-28 14:36:00 24.91 kg/m2 [facility] Oxygen saturation in 2022-06-28 14:36:00 98 /min [facility] of Arterial blood by [facility] Pulse oximetry Branch Systolic blood 2022-06-09 18:20:00 126 mm[Hg] Univer sity of pressure [facility] Diastolic blood 2022-06-09 18:20:00 56 mm[Hg] Unive rsity of pressure [facility] Heart rate 2022-06-09 18:20:00 83 /min [facility] Oxygen saturation in 2022-06-09 18:20:00 93 /min [facility] of Arterial blood by [facility] Pulse oximetry Branch Respiratory rate 2022-06-09 18:18:00 17 /min Univ ersity of [facility] Body height 2022-06-09 18:18:00 157.5 cm [facility] Body weight 2022-06-09 18:18:00 64.411 kg [facility] BMI 2022-06-09 18:18:00 25.97 kg/m2 [facility] Systolic blood 2022-06-07 21:32:00 126 mm[Hg] Univer sity of pressure [facility] Diastolic blood 2022-06-07 21:32:00 71 mm[Hg] Unive rsity of pressure [facility] Heart rate 2022-06-07 21:32:00 77 /min [facility] Body temperature 2022-06-07 21:32:00 37.28 Monique Univ [facility] Respiratory rate 2022-06-07 21:32:00 16 /min Univ ersity [facility] Body height 2022-06-07 21:32:00 157.5 cm [facility] Body weight 2022-06-07 21:32:00 64.547 kg [facility] BMI 2022-06-07 21:32:00 26.03 kg/m2 [facility] Oxygen saturation in 2022-06-07 21:32:00 97 /min [facility] Arterial blood by [facility] Pulse oxim[facility] WEIGHT 2022-06-01 05:00:00 64.638 kg HEIGHT 2022-05-28 08:00:00 157.5 cm WEIGHT 2022-05-28 08:00:00 64 kg WEIGHT 2022-06-01 05:00:00 64.638 kg HEIGHT 2022-05-28 08:00:00 157.5 cm WEIGHT 2022-05-28 08:00:00 64 kg Systolic blood 2022-05-25 19:34:00 128 mm[Hg] Univer sity of pressure [facility] Diastolic blood 2022-05-25 19:34:00 54 mm[Hg] Unive rsity of pressure [facility] Heart rate 2022-05-25 19:34:00 77 /min [facility] Body height 2022-05-25 19:34:00 157.5 cm [facility] Body weight 2022-05-25 19:34:00 62.551 kg [facility] BMI 2022-05-25 19:34:00 25.22 kg/m2 [facility] Oxygen saturation in 2022-05-25 19:34:00 95 /min [facility] Arterial blood by [facility] Pulse oxim[facility] Systolic blood 2022-05-17 19:02:00 166 mm[Hg] Univer sity of pressure [facility] Diastolic blood 2022-05-17 19:02:00 75 mm[Hg] Unive rsity of pressure [facility] Heart rate 2022-05-17 19:02:00 104 /min [facility] Body temperature 2022-05-17 19:02:00 36.78 Monique Univ [facility] Respiratory rate 2022-05-17 19:02:00 18 /min Univ [facility] Body height 2022-05-17 19:02:00 144.8 cm [facility] Body weight 2022-05-17 19:02:00 64.955 kg [facility] BMI 2022-05-17 19:02:00 30.99 kg/m2 [facility] Oxygen saturation in 2022-05-17 19:02:00 98 /min [facility] Arterial blood by [facility] Pulse oxim[facility] Branch Systolic blood 2022-04-08 19:24:00 134 mm[Hg] Univer sity of pressure [facility] Diastolic blood 2022-04-08 19:24:00 73 mm[Hg] Unive rsity of pressure [facility] Heart rate 2022-04-08 19:24:00 73 /min [facility] Body height 2022-04-08 19:24:00 157.5 cm [facility] Body weight 2022-04-08 19:24:00 64.864 kg [facility] BMI 2022-04-08 19:24:00 26.16 kg/m2 [facility] Systolic blood 2022-04-11 15:24:00 136 mm[Hg] Univer sity of pressure [facility] Diastolic blood 2022-04-11 15:24:00 76 mm[Hg] Unive rsity of pressure [facility] Heart rate 2022-04-11 15:24:00 83 /min [facility] Body height 2022-04-11 15:24:00 157.5 cm [facility] Body weight 2022-04-11 15:24:00 63.504 kg [facility] BMI 2022-04-11 15:24:00 25.61 kg/m2 [facility] Oxygen saturation in 2022-04-11 15:24:00 97 /min [facility] Arterial blood by [facility] Pulse oxim[facility] Branch Systolic blood 2022-03-25 16:35:00 140 mm[Hg] [facility] Diastolic blood 2022-03-25 16:35:00 60 mm[Hg] [facility] Heart rate 2022-03-25 16:35:00 79 /min [facility] Respiratory rate 2022-03-25 16:35:00 16 /min [facility] Body height 2022-03-25 16:35:00 160 cm [facility] Body weight 2022-03-25 16:35:00 64.32 kg [facility] BMI 2022-03-25 16:35:00 25.12 kg/m2 [facility] Systolic blood 2022-03-11 20:35:00 136 mm[Hg] Univer sity of pressure [facility] Diastolic blood 2022-03-11 20:35:00 76 mm[Hg] Unive rsity of pressure [facility] Heart rate 2022-03-11 20:33:00 83 /min [facility] Body temperature 2022-03-11 20:33:00 37.11 Monique Univ ersity of [facility] Body height 2022-03-11 20:33:00 157.5 cm [facility] Body weight 2022-03-11 20:33:00 63.504 kg [facility] BMI 2022-03-11 20:33:00 25.61 kg/m2 [facility] Oxygen saturation in 2022-03-11 20:33:00 97 /min [facility] Arterial blood by [facility] Pulse oxim[facility] Branch Systolic blood 2022-03-11 14:27:00 145 mm[Hg] Univer sity of pressure [facility] Diastolic blood 2022-03-11 14:27:00 68 mm[Hg] Unive rsity of pressure [facility] Heart rate 2022-03-11 14:26:00 78 /min [facility] Body height 2022-03-11 14:26:00 157.5 cm [facility] Body weight 2022-03-11 14:26:00 61.236 kg [facility] BMI 2022-03-11 14:26:00 24.69 kg/m2 [facility] Oxygen saturation in 2022-03-11 14:26:00 99 /min [facility] Arterial blood by [facility] Pulse oximetry Branch Systolic blood 2022-02-25 23:37:00 [...] /min [facility] Arterial blood by [facility] [facility]ulse oximetry [facility] Systolic blood 2022-01-21 [...] 96 /min [facility] Arterial blood by [facility] Pulse [facility]xim[facility] Branch Systolic blood 2021-12-24 20:33:00 135 mm[Hg] Univer sity of pressure [facility] Diastolic blood 2021-12-24 20:33:00 65 mm[Hg] Unive rsity of pressure [facility] Heart rate 2021-12-24 20:33:00 73 /min [facility] Body temperature 2021-12-24 20:33:00 36.56 Monique [facility] Body height 2021-12-24 20:33:00 144.8 cm [facility] Body weight 2021-12-24 20:33:00 62.596 kg [facility] BMI 2021-12-24 20:33:00 29.86 kg/m2 [facility] Oxygen saturation in 2021-12-24 20:33:00 96 /min [facility] Arterial blood by [facility] Pulse oxim[facility] Branch Systolic blood 2021-12-03 18:46:00 [...] 2021-12-03 18:45:00 29.65 kg/m2 [facility] Oxygen saturation in 2021-12-03 18:45:00 96 /min [facility] Arterial blood by [facility] Pulse [facility] Branch Systolic blood 2021-11-26 20:46:00 158 mm[Hg] Univer sity of pressure [facility] Diastolic blood 2021-11-26 20:46:00 72 mm[Hg] Unive rsity of pressure [facility] Heart rate 2021-11-26 20:46:00 98 /min [facility] Body height 2021-11-26 20:46:00 160 cm [facility] Body weight 2021-11-26 20:46:00 61.689 kg [facility] BMI 2021-11-26 20:46:00 24.09 kg/m2 [facility] Systolic blood 2021-11-12 19:46:00 132 mm[Hg] [facility] pressure Medicine Diastolic blood 2021-11-12 19:46:00 57 mm[Hg] [facility] pressure Medicine Heart rate 2021-11-12 19:46:00 78 /min [facility] Body temperature 2021-11-12 19:46:00 36.67 Monique [facility] Respiratory rate 2021-11-12 19:46:00 16 /min [facility] Body height 2021-11-12 19:46:00 160 cm [facility] weight 2021-11-12 19:46:00 61.689 kg [facility] BMI 2021-11-12 19:46:00 24.09 kg/m2 [facility] Oxygen saturation in 2021-11-12 19:46:00 96 /min [facility] Arterial blood by Medicine Pulse oximetry Systolic blood 2021-11-02 18:10:00 152 mm[Hg] Univer sity of pressure [facility] Diastolic blood 2021-11-02 18:10:00 73 mm[Hg] Unive rsity of [facility] Heart rate 2021-11-02 18:10:00 83 /min Universi ty of [facility] Body height 2021-11-02 18:10:00 160 cm Universi ty of [facility] Body weight 2021-11-02 18:10:00 61.689 kg Universi ty of [facility] BMI 2021-11-02 18:10:00 24.09 kg/m2 [facility] Oxygen saturation in 2021-11-02 18:10:00 95 /min [facility] Arterial blood by [facility] Pulse oximetry Branch Systolic blood 2021-11-01 15:17:00 155 mm[Hg] [facility] Diastolic blood 2021-11-01 15:17:00 70 mm[Hg] [facility] Heart rate 2021-11-01 15:17:00 80 /min [facility] Body height 2021-11-01 15:17:00 160 [facility] Body weight 2021-11-01 15:17:00 58.968 kg [facility] BMI 2021-11-01 15:17:00 23.03 kg/m2 [facility] Systolic blood 2021-10-25 20:11:00 138 mm[Hg] Univer sity of pressure [facility] Diastolic blood 2021-10-25 20:11:00 64 mm[Hg] Unive rsity of pressure [facility] Heart rate 2021-10-25 20:11:00 64 /min [facility] Body temperature 2021-10-25 20:11:00 36.5 Monique [facility] Body height 2021-10-25 20:11:00 160 cm [facility] Body weight 2021-10-25 20:11:00 61.689 kg [facility] BMI 2021-10-25 20:11:00 24.09 kg/m2 [facility] Oxygen saturation in 2021-10-25 20:11:00 96 /min [facility] Arterial blood by [facility] Pulse oximetry Branch Systolic blood 2021-07-09 21:36:00 132 mm[Hg] Univer sity of pressure [facility] Diastolic blood 2021-07-09 21:36:00 65 mm[Hg] Unive rsity of pressure [facility] Body temperature 2021-07-09 21:36:00 36.33 Monique [facility] Heart rate 2021-07-09 21:10:00 73 /min [facility] Body height 2021-07-09 21:10:00 142.2 cm [facility] Body weight 2021-07-09 21:10:00 61.598 kg [facility] BMI 2021-07-09 21:10:00 30.45 kg/m2 [facility] Oxygen saturation in 2021-07-09 21:10:00 96 /min [facility] Arterial blood by [facility] Pulse oximetry Branch Systolic blood 2021-05-03 15:25:00 121 mm[Hg] [facility] pressure Medicine Diastolic blood 2021-05-03 15:25:00 65 mm[Hg] [facility] Heart rate 2021-05-03 15:25:00 88 /min [facility] Systolic blood 2020-12-23 21:48:00 137 mm[Hg] [facility] pressure Medicine Diastolic blood 2020-12-23 21:48:00 69 mm[Hg] [facility] pressure Medicine Heart rate 2020-12-23 21:48:00 73 /min [facility] Medicine Body temperature 2020-12-23 21:48:00 36.83 Monique [facility] Respiratory rate 2020-12-23 21:48:00 15 /min [facility] Body height 2020-12-23 21:48:00 162.6 cm [facility] Body weight 2020-12-23 21:48:00 58.968 kg [facility] BMI 2020-12-23 21:48:00 22.31 kg/m2 [facility] Systolic blood 2020-05-04 15:57:00 131 mm[Hg] [facility] pressure Medicine Diastolic blood 2020-05-04 15:57:00 60 mm[Hg] [facility] Heart rate 2020-05-04 15:57:00 67 /min [facility] of Medicine Respiratory rate 2020-05-04 15:57:00 18 /min [facility] Body height 2020-05-04 15:57:00 147.3 cm [facility] of [facility] Body weight 2020-05-04 15:57:00 58.514 kg [facility] of [facility] BMI 2020-05-04 15:57:00 26.96 kg/m2 [facility] Medicine Systolic blood 2020-01-06 16:58:00 146 mm[Hg] [facility] pressure Medicine Diastolic blood 2020-01-06 16:58:00 71 mm[Hg] [facility] Heart rate 2020-01-06 16:58:00 88 /min [facility] Body temperature 2020-01-06 16:58:00 36.44 Monique [facility] Respiratory rate 2020-01-06 16:58:00 16 /min [facility] Body height 2020-01-06 16:58:00 144.8 cm [facility] ol[facility] of [facility] Body weight 2020-01-06 16:58:00 58.968 kg [facility] Medicine BMI 2020-01-06 16:58:00 28.13 kg/m2 [facility] Systolic blood 2020-01-06 16:58:00 146 mm[Hg] [facility] pressure Medicine Diastolic blood 2020-01-06 16:58:00 71 mm[Hg] [facility] of pressure Medicine Heart rate 2020-01-06 16:58:00 88 /min [facility] ol[facility] of [facility] Body temperature 2020-01-06 16:58:00 36.44 Monique [facility] Respiratory rate 2020-01-06 16:58:00 16 /min [facility] Body height 2020-01-06 16:58:00 144.8 cm [facility] ollege of Medicine Body weight 2020-01-06 16:58:00 58.968 kg [facility] of [facility] BMI 2020-01-06 16:58:00 28.13 kg/m2 [facility] ol[facility] of [facility] Systolic blood 2019-10-07 14:05:00 127 mm[Hg] [facility] of pressure Medicine Diastolic blood 2019-10-07 14:05:00 67 mm[Hg] [facility] of pressure Medicine Heart rate 2019-10-07 14:05:00 70 /min [facility] Body temperature 2019-10-07 14:05:00 36.39 Monique [facility] Respiratory rate 2019-10-07 14:05:00 16 /min [facility] Body height 2019-10-07 14:05:00 162.6 cm [facility] of Medicine Body weight 2019-10-07 14:05:00 58.968 kg [facility] of [facility] BMI 2019-10-07 14:05:00 22.31 [facility] Systolic blood 2019-10-07 14:05:00 127 mm[Hg] [facility] pressure Medicine Diastolic blood 2019-10-07 14:05:00 67 mm[Hg] [facility] of pressure Medicine Heart rate 2019-10-07 14:05:00 70 /min [facility] Body temperature 2019-10-07 14:05:00 36.39 Monique [facility] Respiratory rate 2019-10-07 14:05:00 16 /min [facility] Body height 2019-10-07 14:05:00 162.6 cm [facility] Body weight 2019-10-07 14:05:00 58.968 kg [facility] BMI 2019-10-07 14:05:00 22.31 kg/m2 [facility] HEIGHT 2019-07-08 00:00:00 147.3 cm WEIGHT 2019-07-08 00:00:00 57.743 kg pulse rate 2019-07-01 08:14:01 80 /min [facility] blood pressure, 2019-07-01 08:14:01 71 mm[Hg] [facility] diastolic Health blood pressure, 2019-07-01 08:14:01 171 mm[Hg] [facility] systolic Health pulse rate 2019-06-25 09:35:00 76 /min [facility] blood pressure, 2019-06-25 09:35:00 77 mm[Hg] [facility] diastolic Health blood pressure, 2019-06-25 09:35:00 153 mm[Hg] Legac y [facility] systolic Health Procedures Procedure Date / Time Performing Clinician Source Performed EXTERNAL PROVIDER RECORDS 2022-07-21 05:01:00 Doctor Unassigned, [facility] HOME HEALTH - OTHER 2022-06-24 05:01:00 Doctor Unassigned, [facility] NM MYOCARDIUM PERFUSION 2022-06-23 16:20:00 Teresita Sendbekah [facility] STRESS AND REST Medical Branch NUCLEAR STRESS TEST 2022-06-23 16:20:00 Ceci Lo [facility] CARDIOLOGY (DO NOT SCHED) Medica l Branch NM MYOCARDIUM PERFUSION 2022-06-23 16:20:00 Teresita Sendbekah [facility] STRESS AND REST Medical Branch NUCLEAR STRESS TEST 2022-06-23 16:20:00 Teresita Sendbekah [facility] CARDIOLOGY (DO NOT SCHED) Medica l Branch NM MYOCARDIUM PERFUSION 2022-06-23 16:20:00 Teresita Sendbekah [facility] STRESS AND REST Medical Branch NUCLEAR STRESS TEST 2022-06-23 16:20:00 Teresita Sendbekah [facility] CARDIOLOGY (DO NOT SCHED) Medica l Branch NM MYOCARDIUM PERFUSION 2022-06-23 16:20:00 Ceci Lo [facility] STRESS AND REST [facility] [place] NUCLEAR STRESS TEST 2022-06-23 16:20:00 Ceci LoHGertrude [facility] CARDIOLOGY (DO NOT SCHED) Medica l Branch BASIC METABOLIC PANEL 2022-06-11 13:49:00 [facility] (NA, K, CL, CO2, GLUCOSE, Medica l Branch BUN, CREATININE, CA) N-TERMINAL PRO-BNP 2022-06-11 13:49:00 [facility] COMP. METABOLIC PANEL 2022-06-10 14:37:00 [facility] ([id number] [place] N-TERMINAL PRO-BNP 2022-06-10 14:37:00 [facility] HB ECG ROUTINE & RHYTHM 2022-05-25 19:30:49 Ceci Lo [facility] STRIP Medical Branch PNEUMOCOCCAL 20 CONJUGATE 2022-05-17 19:39:37 Angela [facility] (PREVNAR 20) VACCINE Medical [facility] ASSIGNMENT OF BENEFITS 2022-05-17 18:46:13 Doctor Unassigned, [facility] Name Medical Branch EXTERNAL PROVIDER RECORDS 2022-04-12 06:01:00 Doctor Rene, [facility] REFERRAL- 2022-04-03 06:01:00 Doctor Unaspring, [facility] REQUEST/RESPONSE [facility] [place] CBC WITH DIFF 2022-03-11 21:42:00 Angela Cunningham [place] [facility] URINE CULTURE 2022-03-11 21:42:00 Chary Donald [facility] [place] REFERRAL- 2022-02-23 06:01:00 Doctor Rene, [facility] REQUEST/RESPONSE [facility] EMERGENCY SERVICES 2021-12-31 06:01:00 Doctor Rene, [facility] AGREEMENTS AND [facility] AUTHORIZATIONS FLU 2021-12-24 21:05:18 Chary Donald [facility] VACC(),65+YR,0.5 Medica l Branch ML,IM,ADJUVANTED,QUAD(FLU AD) MR BRAIN WO CONTRAST 2021-11-19 15:41:00 [facility]OR[facility] 2021-11-18 05:01:00 Doctor Unassigned, [facility] [place] COMPREHENSIVE METABOLIC 2021-11-12 20:56:00 Italia Preston [facility] Medicine HEMOGLOBIN A1C 2021-11-12 20:56:00 Italia Preston [facility] CBC W/AUTO DIFF WITH 2021-11-12 20:56:00 Italia Preston [facility] PLATELETS [facility] THYROID CASCADE PROFILE 2021-11-12 20:56:00 Italia Preston [facility] COMPREHENSIVE METABOLIC 2021-11-12 15:56:00 [facility] HEMOGLOBIN A1C 2021-11-12 15:56:00 [facility] CBC W/AUTO DIFF WITH 2021-11-12 15:56:00 [facility] PLATELETS [facility] THYROID CASCADE PROFILE 2021-11-12 15:56:00 [facility] HANDICAPPED PLACARD 2021-11-12 15:45:36 [facility] EXTERNAL PROVIDER RECORDS 2021-11-01 05:01:00 Doctor Unassigned, [facility] POCT URINALYSIS DIPSTICK 2021-11-01 00:00:00 Keerthi Cuenca [facility] AUTHORIZATION TO RELEASE 2021-10-25 05:01:00 Doctor Rene, [facility] PHI TO [facility] URINALYSIS 2021-09-03 13:22:00 Chary Donald [facility] LIPASE 2021-09-03 13:08:00 Chary Donald [facility] COMP. METABOLIC PANEL 2021-09-03 13:08:00 Chary Donald [facility] ([id number]) Medical Branch CBC WITH DIFF 2021-09-03 13:08:00 Chary Donald [facility] AMB REF TO UROLOGY [facility] 2021-05-03 10:53:33 [facility] POCT URINALYSIS DIPSTICK 2020-12-23 00:00:00 Keerhti Cuenca [facility] POCT URINALYSIS DIPSTICK 2020-12-23 00:00:00 [facility] POCT URINALYSIS DIPSTICK 2020-01-06 00:00:00 Keerthi Cuenca [facility] BASIC METABOLIC PANEL 2019-10-07 14:32:00 Keerthi Cuenca [facility] MAGNESIUM 2019-10-07 14:32:00 Keerthi Cuenca [facility] URIC ACID 2019-10-07 14:32:00 Keerthi Cuenca [facility] Plan of Care Planned Activity Planned [...] (Season Ended)] Future Scheduled 2022-03-25 Diabetic foot [facility]ge Test 10:27:27 examination of Medicine (regime/therapy) [code = 249259978] Future Scheduled 2022-03-25 Annual Diabetic [facility] C ollege Test 10:27:27 Retinopathy of Medicine Screening [code = Annual Diabetic Retinopathy Screening] Future Scheduled 2022-03-25 ZOSTER VACCINE (1 of [facility] Test 10:27:27 2) [code = ZOSTER of Medicin e VACCINE (1 of 2)] Future Scheduled 2022-03-25 Screening for [facility] Test 10:27:27 osteoporosis of Medicine (procedure) [code = 798019182] Future Scheduled 2022-03-25 Pneumococcal 65+ (2 [employer] Test 10:27:27 - PCV) [code = of Medicine Pneumococcal 65+ (2 - PCV)] Future Scheduled 2022-03-25 COVID-19 Vaccine (2 [employer] Test 10:27:27 - Moderna series) of Medicin e [code = COVID-19 Vaccine (2 - Moderna series)] Future Scheduled 2022-03-25 Medicare Awv [facility] Kristine ege Test 10:27:27 (Initial) [code = of Medicin e Medicare Awv (Initial)] Future Scheduled 2022-03-25 FLU VACCINE > 6 [facility] C [facility]lege Test 10:27:27 MONTHS [code = FLU of Medici ne VACCINE > 6 MONTHS] Future Scheduled 2022-03-25 Hemoglobin A1c [facility] Co [facility]lege Test 10:27:27 measurement of Medicine (procedure) [code = 77384731] Future Scheduled 2022-03-25 Fall Screen [code = [employer] Test 10:27:27 Fall Screen] of Medicine Future Scheduled 2022-03-25 TETANUS SHOT (ADULT) [facility] College Test 10:27:27 [code = TETANUS SHOT [...] enter SCREENING] Future Scheduled 2021-11-15 Diabetic foot [facility] Test 19:39:46 examination of Medicine (regime/therapy) [code = 138465100] Future Scheduled 2021-11-15 ANNUAL DIABETIC [facility] C [facility]lege Test 19:39:46 RETINOPATHY of Medicine SCREENING [code = ANNUAL DIABETIC RETINOPATHY SCREENING] Future Scheduled 2021-11-15 ZOSTER VACCINE (1 of [employer] Test 19:39:46 2) [code = ZOSTER of Medicin e VACCINE (1 of 2)] Future Scheduled 2021-11-15 Screening for [facility] Test 19:39:46 osteoporosis of Medicine (procedure) [code = 574690468] Future Scheduled 2021-11-15 Pneumococcal 65+ (2 [employer] Test 19:39:46 - PCV) [code = of Medicine Pneumococcal 65+ (2 - PCV)] Future Scheduled 2021-11-15 MEDICARE AWV [facility] Test 19:39:46 (Initial) [code = of Medicin e MEDICARE AWV (Initial)] Future Scheduled 2021-11-15 COVID-19 Vaccine (2 [employer] Test 19:39:46 - Moderna series) of Medicin e [code = COVID-19 Vaccine (2 - Moderna series)] Future Scheduled 2021-11-15 FLU VACCINE > 6 [facility] C [facility]lege Test 19:39:46 MONTHS [code = FLU of Medici ne VACCINE > 6 MONTHS] Future Scheduled 2021-11-15 Hemoglobin A1c [facility] Co [facility]lege Test 19:39:46 measurement of Medicine (procedure) [code = 83232269] Future Scheduled 2021-11-15 FALL SCREEN [code = [employer] Test 19:39:46 FALL SCREEN] of Medicine Future Scheduled 2021-11-15 TETANUS SHOT (ADULT) [employer] Test 19:39:46 [code = TETANUS SHOT of Medi cine (ADULT)] Future Scheduled 2021-11-14 Diabetic foot [facility] Test 02:33:41 examination of Medicine (regime/therapy) [code = 551138323] Future Scheduled 2021-11-14 ANNUAL DIABETIC [facility] Test 02:33:41 RETINOPATHY of Medicine SCREENING [code = ANNUAL DIABETIC RETINOPATHY SCREENING] Future Scheduled 2021-11-14 ZOSTER VACCINE (1 of [employer] Test 02:33:41 2) [code = ZOSTER of Medicin e VACCINE (1 of 2)] Future Scheduled 2021-11-14 Screening for [facility] Test 02:33:41 osteoporosis of Medicine (procedure) [code = 680113676] Future Scheduled 2021-11-14 Pneumococcal 65+ (2 [employer] Test 02:33:41 - PCV) [code = of Medicine Pneumococcal 65+ (2 - PCV)] Future Scheduled 2021-11-14 MEDICARE AWV [facility] Test 02:33:41 (Initial) [code = of Medicin e MEDICARE AWV (Initial)] Future Scheduled 2021-11-14 COVID-19 Vaccine (2 [employer] Test 02:33:41 - Moderna series) of Medicin e [code = COVID-19 Vaccine (2 - Moderna series)] Future Scheduled 2021-11-14 FLU VACCINE > 6 [facility] C [facility] Test 02:33:41 MONTHS [code = FLU of Medici ne VACCINE > 6 MONTHS] Future Scheduled 2021-11-14 Hemoglobin A1c [facility] Test 02:33:41 measurement of Medicine (procedure) [code = 56547172] Future Scheduled 2021-11-14 FALL SCREEN [code = [employer] Test 02:33:41 FALL SCREEN] of Medicine Future Scheduled 2021-11-14 TETANUS SHOT (ADULT) [employer] Test 02:33:41 [code = TETANUS [...] Future Scheduled 2021-05-04 ZOSTER VACCINE (1 of [employer] Test 15:51:29 2) [code = ZOSTER of Medicin e VACCINE (1 of 2)] Future Scheduled 2021-05-04 Screening for [facility] Test 15:51:29 osteoporosis of Medicine (procedure) [code = 686158150] Future Scheduled 2021-05-04 Pneumococcal 65+ (1 [employer] Test 15:51:29 of 1 - PPSV23) [code of Medi cine = Pneumococcal 65+ (1 of 1 - PPSV23)] Future Scheduled 2021-05-04 MEDICARE AWV [facility] Test 15:51:29 (Initial) [code = of Medicin e MEDICARE AWV (Initial)] Future Scheduled 2021-05-04 FLU VACCINE > 6 [facility] C [facility]lege Test 15:51:29 MONTHS [...] Medicine Future Scheduled 2021-05-04 TETANUS SHOT (ADULT) [employer] Test 15:51:29 [code = TETANUS SHOT of Medi cine (ADULT)] Future Scheduled 2021-05-04 US RENAL BILATERAL Expected: [employer] Test 00:00:00 [code = 85022] 05/04/2021, of Medicine Expires: 05/04/2021 Future Scheduled [...] SCREENING] Future Scheduled 2021-01-03 COVID-19 Vaccine (1) [employer] Test 08:34:34 [code = COVID-19 of Medicine Vaccine (1)] Future Scheduled 2021-01-03 ZOSTER VACCINE (1 of [employer] Test 08:34:34 2) [code = ZOSTER of Medicin e VACCINE (1 of 2)] Future Scheduled 2021-01-03 Screening for [facility] Test 08:34:34 osteoporosis of Medicine (procedure) [code = 989819731] Future Scheduled 2021-01-03 Pneumococcal 65+ (1 [employer] Test 08:34:34 of 1 - PPSV23) [code of Medi cine = Pneumococcal 65+ (1 of 1 - PPSV23)] Future Scheduled 2021-01-03 MEDICARE AWV [facility] Test 08:34:34 (Initial) [code = of Medicin e MEDICARE AWV (Initial)] Future Scheduled 2021-01-03 FLU VACCINE > 6 [facility]ia Test 08:34:34 MONTHS [code = FLU of Medici ne VACCINE > 6 MONTHS] Future Scheduled 2021-01-03 FALL SCREEN [code = [facility] Test 08:34:34 FALL SCREEN] of Medicine Future Scheduled 2021-01-03 TETANUS SHOT (ADULT) [facility] Test 08:34:34 [code = TETANUS SHOT of Medi cine (ADULT)] Future Scheduled 2020-10-[address] [facility] Test 00:00:00 (#1) [code = Medical Center INFLUENZA VACCINE (#1)] Diagnostic Test 2020-07-11 US RENAL BILATERAL Expected: [facility] Pending 00:00:00 [code = 22331] 07/11/2020, of Medicine Expires: 01/11/2021 Future Scheduled [facility] (#1) [code = [facility] COVID-19 VACCINE (#1)] Future Scheduled 1936 COVID-[address] [facility] Test 00:00:00 (#1) [code = [facility] COVID-19 VACCINE (#1)] Future Scheduled 1936 COVID-[address] [facility] Test 00:00:00 (#1) [code = [facility] COVID-19 VACCINE (#1)] Future Scheduled 1936 COVID-[address] [facility] Test 00:00:00 (#1) [code = [facility] COVID-19 VACCINE (#1)] Future Scheduled 1936 DXA SCAN [code = DXA [facility] Test 00:00:00 SCAN] [facility] Future Scheduled 1936 DXA SCAN [code = DXA [facility] Test 00:00:00 SCAN] [facility] Future Scheduled 1936 DXA SCAN [code = DXA [facility] Test 00:00:00 SCAN] [facility] Future Scheduled 1936 DXA SCAN [code = DXA [facility] Test 00:00:00 SCAN] [facility] Future Scheduled 1936 DXA SCAN [code = DXA [facility] Test 00:00:00 SCAN] [facility] Future Scheduled 1936 DXA SCAN [code = DXA [facility] Test 00:00:00 SCAN] [facility] Future Scheduled 1936 DXA SCAN [code = DXA [facility] Test 00:00:00 SCAN] [facility] Future Scheduled PTH,INTACT,WITH Ordered: [facility] Denisha allen Test CALCIUM,PO4,CREAT 10/07/2019 of Medicin e [code = NOCPT] Future Scheduled TETANUS SHOT (ADULT) [facility] Test [code = TETANUS SHOT of Medi cine (ADULT)] Future Scheduled ZOSTER VACCINE (1 of [facility] Test 2) [code = ZOSTER of Medicin e VACCINE (1 of 2)] Future Scheduled OSTEOPOROSIS [facility] Test SCREENING [code = of Medicin e OSTEOPOROSIS SCREENING] Future Scheduled MEDICARE AWV [facility] Kristine [facility]ge Test (Initial) [code [...] PLAN] Future Scheduled ZOSTER VACCINE (1 of [employer] Test 2) [code = ZOSTER of Medicin e VACCINE (1 of 2)] Future Scheduled OSTEOPOROSIS [facility] Test SCREENING [code [...] of Medicine Future Scheduled TETANUS SHOT (ADULT) [employer] Test [code = TETANUS SHOT of Medi cine (ADULT)] Future Scheduled COVID-19 Vaccine (1) [employer] Test [code = COVID-19 of Medicine Vaccine (1)] Future Scheduled BMI FOLLOW UP PLAN [employer] Test [code = BMI FOLLOW of Medici ne UP PLAN] Future Scheduled ZOSTER VACCINE (1 of [employer] Test 2) [code = ZOSTER of Medicin e VACCINE (1 of 2)] Future Scheduled Screening for [employer] Test osteoporosis of Medicine (procedure) [code = 906616406] Future Scheduled MEDICARE IPPE [facility] [employer] Test (WELCOME TO of [facility] MEDICARE) [code = MEDICARE IPPE (WELCOME TO MEDICARE)] Future Scheduled FLU VACCINE > 6 [facility] C [facility]lege Test MONTHS [code = FLU of Medici ne VACCINE > 6 MONTHS] Future Scheduled FALL SCREEN [code = [employer] FALL SCREEN] of Medicine Future Scheduled TETANUS SHOT (ADULT) [employer] Test [code = TETANUS SHOT of Medi cine (ADULT)] Encounters Start End Encounter Admission Attending Care Care Encounter Source Date/Time Date/Time Type Type Clinicians Facility Department ID 2020-11-17 Inpatient ER GUILLERMO, [facility] [id number] [facility] 14:52:09 LILIANA 2022-10-07 2022-10-07 Outpatient R WON MATT [facility] [id number] Univers 11:20:00 11:20:00 VERNELL WON [facility] 2022-09-22 2022-09-22 Outpatient R TERESITA [facility] [id number] Univers 15:00:00 15:00:00 SENDIL [facility] 2022-08-09 2022-08-09 Outpatient R ANGELA CUNNINGHAM [facility] [id number] Univers 10:00:00 10:00:00 ANGELA CUNNINGHAM [facility] 2022-07-27 2022-07-27 [facility] [id number] Univers 00:00:00 00:00:00 Sendil Courtney [place] [id number] [place]y [id number] [phone] [facility] [address] [facility] 2022-07-21 2022-07-21 Orders Doctor LILLIANA [id number] Univers 00:00:00 00:00:00 Only Unassigned, MACKENZIE [id number] [place]y [place] [facility] [id number] Kilo as [phone] [address] 2022-07-18 2022-07-18 [facility] [id number] Univers 00:00:00 00:00:00 Critical access hospital [id number] ity of [place] [id number] Kilo as KRZYSZTOF?BLEA [id number] [address] MEDICAL OFFICE BUILDING 2022-07-13 2022-07-13 Patient Octavio [facility] [id number] Univers 00:00:00 00:00:00 Secure Msg Angela HEALTH [id number] ity of [place] [id number] Kilo as KRZYSZTOF?BLEA [id number] [address] MEDICAL OFFICE [facility] 2022-07-12 2022-07-12 Outpatient R TERESITA [facility] [id number] Univers 14:00:00 16:32:11 SENDIL [facility] 2022-07-12 2022-07-12 Office Teresita [facility] [id number] Univers 14:00:00 16:32:11 Visit Ceci ALBRECHT [id number] it[place] of [id number] [phone] [address] 2022-07-12 2022-07-12 Telephone Teresita [facility] [id number] Univers 00:00:00 00:00:00 Sendbekah ALBRECHT [id number] ity of [id number] [id number] [address] 2022-07-08 2022-07-08 [facility], Critical access hospital [id number] Univers 09:00:00 09:15:00 Visit Angela Cunningham [facility] [id number] ity of [place] [id number] Kilo as KRZYSZTOF?BLEA [id number] [facility] [address] [facility] OFFICE [facility] 2022-07-08 2022-07-08 Outpatient R ANGELA CUNNINGHAM [facility] [id number] Univers 09:00:00 09:00:00 ANGELA [facility] 2022-07-08 2022-07-08 [facility] [id number] Univers 00:00:00 00:00:00 Critical access hospital [id number] ity [facility] [id number] [place]ilo as KRZYSZTOF?BLEA [id number] [address] OFFICE [facility] 2022-07-01 2022-07-01 Outpatient R ANGELA CUNNINGHAM [facility] [id number] Univers 11:20:00 11:20:00 ANGELA [facility] 2022-06-28 2022-06-28 Outpatient R ANGELA CUNNINGHAM [facility] [id number] Univers 09:20:00 10:19:27 ANGELA CUN[facility] 2022-06-28 2022-06-28 Office [facility] [id number] Univers 09:20:00 10:19:27 Visit Critical access hospital [id number] ity of [place] [id number] Kilo as KRZYSZTOF?BLEA [id number] [address] OFFICE [facility] 2022-06-28 2022-06-28 Telephone [facility] [id number] Univers 00:00:00 00:00:00 Critical access hospital [id number] ity of [place] [id number] Kilo as KRZYSZTOF?BLEA [id number] [address] OFFICE [facility] 2022-06-24 2022-06-24 Telephone [facility] [id number] Univers 00:00:00 00:00:00 Ceci ALBRECHT [id number] ity of [place].2.[place].2.[place] [facility] [phone] [facility] 059 [facility] 2022-06-24 2022-06-24 Orders Doctor LILLIANA 1.2.840.114 [id number] Univers 00:00:00 00:00:00 Only Unassigned, MACKENZIE 350.1.13.10 ity [place] [facility] 4.2.7.2.686 Kilo as [phone] [facility] [address] 2022-06-23 2022-06-23 [facility] 1.2.840.114 [id number] Univers 08:13:16 23:59:00 Encounter Ceci ALBRECHT 350.1.13.10 ity of [place] 4.2.7.2.[place] [facility] [phone] [facility] [address] 2022-06-23 2022-06-23 [facility] 1.2.840.114 [id number] Univers 08:12:54 08:12:54 Encounter Sendil Courtney ALBRECHT 350.1.13.10 ity of [place] 4.2.7.2.686 [facility] [id number] [address] 2022-06-23 2022-06-23 [facility] 1.2.840.114 [id number] Univers 08:12:41 08:12:41 Encounter Sendil Courtney ALBRECHT 350.1.13.10 ity of [place] 4.2.7.2.686 [facility] [id number] [address] 2022-06-23 2022-06-23 Outpatient R [facility] [id number] Univers 08:12:25 08:11:00 SENDIL ity of [facility] 2022-06-23 2022-06-23 [facility] 1.2.840.114 [id number] Univers 08:00:00 08:11:00 Encounter Sendbekah ALBRECHT 350.1.13.10 ity of [place] 4.2.7.2.686 [facility] [id number] [address] 2022-06-21 2022-06-21 Outpatient R [facility] [id number] Univers 09:00:00 09:00:00 SENDIL ity of [facility] 2022-06-21 2022-06-21 Telephone [facility] 1.2.939.811 [id number] Univers 00:00:00 00:00:00 Sendbekah ALBRECHT 350.1.13.10 ity of [place] 4.2.7.2.686 [facility] PROFESSIO [phone] Ok dical NAL [address] [facility] 2022-06-20 2022-06-20 Brass Cleaner Abdiel, Adc Lab Main [facility] 1.2.8 40.114 [id number] Univers 07:45:00 08:00:00 Visit Ceci Lo 350.1.13. 10 it[place] of [place] [phone] Ok dical NAL 353 [facility] 2022-06-20 2022-06-20 Outpatient R TERESITA [facility] [id number] Univers 07:45:00 07:45:00 SENDIL ity [facility] 2022-06-16 2022-06-16 [facility]phone [facility] 1.2.167.454 [id number] Univers 00:00:00 00:00:00 Sendil Courtney ALBRECHT 350.1.13.10 it[place] of [place] PROF[place] [phone] Ok dical NAL [address] [place] [address] 2022-06-16 2022-06-16 [place] [facility] 1.2.666.492 [id number] Univers 00:00:00 00:00:00 Sendil Courtney ALBRECHT 350.1.13.10 it[place] of [place].2.[place] PROF[place] [phone] Ok dical NAL 9 [facility] 2022-06-15 2022-06-15 [facility] 1.2.530.746 [id number] Univers 00:00:00 00:00:00 Sendil Courtney ALBRECHT 350.1.13.10 it[place] of [place] [phone] Ok dical NAL 9 [facility] 2022-06-13 2022-06-13 Outpatient R TERESITA [facility] [id number] Univers 15:30:00 15:30:00 SENDIL ity [facility] 2022-06-13 2022-06-13 [place] [facility] 1.2.942.500 [id number] Univers 00:00:00 00:00:00 Sendil Courtney ALBRECHT 350.1.13.10 it[place] of [place] 4.[place].2.[place] [phone] Ok dical NAL [address] [place] [address] 2022-06-11 2022-06-11 Brass Cleaner Abdiel, Adc Lab Main [facility] 1.2.8 40.114 [id number] Univers 08:30:00 08:45:00 Visit Ceci Lo 350.1.13. 10 it[facility] 4.2.7.2.686 [place] PROFESS[place] [phone] [facility] 353 [facility] 2022-06-11 2022-06-11 Outpatient R [facility] [id number] Univers 08:30:00 08:30:00 SENDIL ity [facility] 2022-06-10 2022-06-10 Brass Cleaner Abdiel, Adc Lab Main [facility] 1.2.8 40.114 [id number] Univers 09:15:00 09:30:00 Visit Ceci Lo 350.1.13. 10 ity of [place] 4.[place].7.2.[place] [phone] [facility] 353 [facility] 2022-06-10 2022-06-10 Outpatient R [facility] [id number] Univers 09:15:00 09:15:00 SENDIL ity [facility] 2022-06-10 2022-06-10 Refill [facility] 1.2.840.114 [id number] Univers 00:00:00 00:00:00 Critical access hospital 350.1.13.10 ity of [place] 4.2.7.2.686 Kilo as KRZYSZTOF?BLEA [phone] [facility] KNEY 044 [facility] OFFICE [facility] 2022-06-10 2022-06-10 Telephone Teresita [facility] 1.2.693.349 [id number] Univers 00:00:00 00:00:00 Sendbekah ALBRECHT 350.1.13.10 ity [facility] 4.2.7.2.[place] [phone] [facility] 059 [facility] 2022-06-09 2022-06-09 Outpatient R [facility] [id number] Univers 13:30:00 14:26:56 SENDIL ity [facility] 2022-06-09 2022-06-09 Office [facility] 1.2.840.114 [id number] Univers 13:30:00 14:26:56 Visit Ceci GargGertrudeDanisha [facility] 350.1.13.10 ity of [place] 4.2.7.2.686 [place] ESSIO [phone] Ok [facility] 059 [facility] 2022-06-08 2022-06-08 Patient [facility] 1.2.840.114 [id number] Univers 00:00:00 00:00:[address] [facility] 350.1.13.10 i ty of [place] 4.2.7.2.686 Kilo as KRZYSZTOF?BLEA [phone] [address] OFFICE [facility] 2022-06-07 2022-06-07 Outpatient ANGELA LIZ [facility] [id number] Univers 16:20:00 17:24:14 [facility] 2022-06-07 2022-06-07 Office [facility] 1.2.840.114 [id number] Univers 16:20:00 17:24:14 Visit Critical access hospital 350.1.13.10 ity of [place] 4.2.7.2.686 Kilo as KRZYSZTOF?BLEA [id number] [address] 2022-06-07 2022-06-07 Telephone [facility] 1.2.809.850 [id number] Univers 00:00:00 00:00:00 Critical access hospital 350.1.13.10 ity of [place] 4.2.7.2.686 [place] as KRZYSZTOF?BLEA [id number] [address] OFFICE [facility] 2022-06-02 2022-06-02 Outpatient R OCTAVIO ANGELA [facility] [id number] Univers 14:20:00 14:20:00 ANGELA CUNNINGHAM [facility] 2022-05-28 2022-06-01 Inpatient ER [facility] Medical ICU 20 [id number] [facility] 07:43:00 15:42:00 STELLA 2022-06-01 2022-06-01 Outpatient R TERESITA [facility] [id number] Univers 15:30:00 15:30:00 SENDIL ity [facility] 2022-05-25 2022-05-25 Outpatient R TERESITA [facility] [id number] Univers 14:00:00 15:24:40 SENDIL ity [facility] 2022-05-25 2022-05-25 Office [facility] 1.2.840.114 [id number] Univers 14:00:00 15:24:40 Visit Ceci AcuñaTyrellGertrude ALBRECHT 350.1.13.10 ity of [place] 4.2.7.2.[place] [phone] [place] [address] [facility] 2022-05-17 2022-05-17 Outpatient R ANGELA CUNNINGHAM [facility] [id number] Univers 13:40:00 15:02:27 OCTAVIO ANGELA [facility] 2022-05-17 2022-05-17 Office [facility] 1.2.840.114 [id number] Univers 13:40:00 15:02:27 Visit Critical access hospital 350.1.13.10 ity of [place] 4.2.7.2.686 [place]ilo as KRZYSZTOF?BLEA [id number] [address] OFFICE [facility] 2022-05-17 2022-05-17 Orders Doctor LILLIANA 1.2.840.114 [id number] Univers 00:00:00 00:00:00 Only Unassigned, MACKENZIE 350.1.13.10 it[place] [facility] 4.2.7.2.686 Kilo as [phone] [address] 2022-04-23 2022-04-23 Refill [facility] 1.2.840.114 [id number] Univers 00:00:00 00:00:00 Critical access hospital 350.1.13.10 ity of [place] 4.2.7.2.686 [place]ilo as KRZYSZTOF?BLEA [phone] [address] MEDICAL OFFICE [facility] 2022-04-22 2022-04-22 Refill [facility] 1.2.840.114 [id number] Univers 00:00:00 00:00:00 Critical access hospital 350.1.13.10 ity of [place] 4.2.7.2.686 Kilo as KRZYSZTOF?BLEA [phone] [address] MEDICAL OFFICE [facility] 2022-04-15 2022-04-15 Outpatient Braulio CLAIREKaren [facility] [id number] Univers 09:20:00 09:20:00 [facility] 2022-04-12 2022-04-12 Orders Doctor LILLIANA 1.2.840.114 [id number] Univers 00:00:00 00:00:00 Only Unassigned, MACKENZIE 350.1.13.10 [facility] 4.2.7.2.686 Kilo as [phone] [address] 2022-04-11 2022-04-11 Outpatient WON SALDIVAR [facility] [id number] Univers 09:00:00 09:00:00 WON MATT [facility] 2022-04-08 2022-04-08 Outpatient WON SALDIVAR [facility] [id number] Univers 13:40:00 14:51:58 WON MATT [facility] 2022-04-08 2022-04-08 Office Vernell [facility] 1.2.840.114 [id number] Univers 13:40:00 14:51:58 Visit [facility] 350.1.13.10 ity of [place] 4.2.7.2.686 Kilo as KRZYSZTOF?BLEA [phone] [address] OFFICE [facility] 2022-04-08 2022-04-08 Nurse Nurse, Thom-Db Neurology [facility] 1. 2.840.114 [id number] Univers 13:00:00 14:50:23 Visit [facility] HEALTH 350.1.13.10 ity of [place] 4.2.7.2.686 Kilo as KRZYSZTOF?BLEA [phone] [address] OFFICE [facility] 2022-04-03 2022-04-03 Orders Doctor LILLIANA 1.2.840.114 [id number] Univers 00:00:00 00:00:00 Only Unassigned, MACKENZIE 350.1.13.10 it[place] [facility] 4.2.7.2.686 Kilo as [phone] [facility] [address] 2022-03-25 2022-03-25 Office Jh ROSE 1.2.840.114 10 [id number] [facility] 10:20:00 11:00:00 Visit Emma AMBULATOR 350.1.13.21 College Y 0.2.7.2.686 of [id number] [facility] 335 e 2022-03-24 2022-03-24 Telephone [facility] 1.2.075.707 [id number] Univers 00:00:00 00:00:00 [place] [facility] 350.1.13.10 [facility] 4.2.7.2.686 Kilo as KRZYSZTOF?BLEA [id number] Ok salvatore DAWKINS [address] MEDICAL OFFICE [facility] 2022-03-18 2022-03-18 Telephone [facility] 1.2.458.445 [id number] Univers 00:00:00 00:00:00 Critical access hospital 350.1.13.10 ity of [place] 4.2.7.2.686 Kilo as KRZYSZTOF?BLEA [phone] Ok salvatore ESTRADA [address] MEDICAL OFFICE BUILDING 2022-03-15 2022-03-15 Telephone [facility] 1.2.840.114 [id number] Univers 00:00:00 00:00:00 [facility] 350.1.13.10 ity of [place] 4.2.7.2.686 Kilo as KRZYSZTOF?BLEA [phone] Ok salvatore ESTRADA [address] MEDICAL OFFICE BUILDING 2022-03-11 2022-03-11 Brass Cleaner Lab, Ang - Db [facility] 1.2.840.1 14 [id number] Univers 15:30:00 15:47:42 Visit [facility] 350.1.13.10 ity of [place] 4.2.7.2.686 Kilo as KRZYSZTOF?BLEA [phone] [facility] MARIZA [address] MEDICAL OFFICE BUILDING 2022-03-11 2022-03-11 Outpatient R OCTAVIO [facility] [id number] Univers 13:40:00 15:35:06 ANGELA karen [facility] 2022-03-11 2022-03-11 Office [facility] 1.2.840.114 [id number] Univers 13:40:00 15:35:06 Visit Critical access hospital 350.1.13.10 ity of [place] 4.2.7.2.686 Kilo as KRZYSZTOF?BLEA [id number] Ok salvatore ESTRADA [address] MEDICAL OFFICE BUILDING 2022-03-11 2022-03-11 Office [facility] 1.2.840.114 [id number] Univers 08:00:00 09:15:25 Visit [facility] 350.1.13.10 it y of [place] 4.2.7.2.686 Kilo as KRZYSZTOF?BLEA [id number] [facility] 092 [facility] OFFICE [facility] 2022-03-04 2022-03-04 Outpatient R NIRMALA [facility] [id number] Univers 10:30:00 10:30:00 ARASELI [facility] 2022-02-25 2022-02-25 Urgent Rea Jaspernora [facility] 1.2.840.114 [id number] Univers 17:40:00 18:00:00 Care Unknown, [facility] HEALTH 350.1.13.10 ity of [place] 4.2.7.2.686 Kilo as KRZYSZTOF?BLEA [id number] [facility] [address] MEDICAL OFFICE [facility] 2022-02-25 2022-02-25 Outpatient R REA [facility] [id number] Univers 17:40:00 17:40:00 TAMELA karen [facility] 2022-02-25 2022-02-25 Outpatient R OCTAVIO [facility] [id number] Univers 14:00:00 14:00:00 ANGELA [facility] 2022-02-23 2022-02-23 Orders Doctor TIJERINA 1.2.840.114 [id number] Univers 00:00:00 00:00:00 Only Unassigned, MACKENZIE 350.1.13.10 it[place] [facility] 4.2.7.2.686 Kilo as [id number] [address] 2022-01-21 2022-01-21 Outpatient [facility] [id number] Univers 15:40:00 16:34:00 [facility] 2022-01-21 2022-01-21 Office [facility] 1.2.840.114 [id number] Univers 15:40:00 16:34:00 Visit Critical access hospital 350.1.13.10 ity of [place] 4.2.7.2.686 Kilo as KRZYSZTOF?BLEA [id number] [address] OFFICE [facility] 2021-12-31 2021-12-31 Outpatient R [facility] [id number] Univers 11:20:00 11:20:00 [facility] 2021-12-31 2021-12-31 Orders Doctor TIJERINA 1.2.840.114 [id number] Univers 00:00:00 00:00:00 Only Unassigned, MACKENZIE 350.1.13.10 [facility] 4.2.7.2.686 Kilo as [id number] [address] 2021-12-24 2021-12-24 Outpatient R ODILON [facility] [id number] Univers 14:30:00 15:49:08 [facility] 2021-12-24 2021-12-24 Office [facility] 1.2.840.114 [id number] Univers 14:30:00 15:49:08 Visit [facility] 350.1.13.10 i ty of [place] 4.2.7.2.686 Kilo as KRZYSZTOF?BLEA [phone] [address] OFFICE [facility] 2021-12-23 2021-12-23 Abstract [facility] 1.2.840.114 [id number] Univers 00:00:00 00:00:00 Angela HEALTH 350.1.13.10 ity of [place] 4.2.7.2.686 Kilo as KRZYSZTOF?BLEA [id number] [address] OFFICE [facility] 2021-12-17 2021-12-17 Outpatient R BETO [facility] [id number] Univers 11:00:00 11:00:00 DANIEL collins o f [facility] 2021-12-17 2021-12-17 Refshruthi CunninghamLOVELACE [facility] 1.2.840.114 [id number] Univers 00:00:00 00:00:00 [place] HEALTH 350.1.13.10 [facility] 4.2.7.2.686 Kilo as KRZYSZTOF?BLEA [id number] [address] MEDICAL OFFICE [facility] 2021-12-10 2021-12-10 Outpatient R OCTAVIO [facility] [id number] Univers 09:20:00 09:20:00 [facility] 2021-12-10 2021-12-10 Outpatient [facility] [id number] Univers 09:20:00 09:20:00 [facility] 2021-12-03 2021-12-03 Outpatient R OCTAVIO [facility] [id number] Univers 13:40:00 14:38:59 [facility] 2021-12-03 2021-12-03 Office [facility] 1.2.840.114 [id number] Univers 13:40:00 14:38:59 Visit Critical access hospital 350.1.13.10 ity of [place] 4.2.7.2.686 Kilo as KRZYSZTOF?BLEA [phone] [address] 2021-11-27 2021-11-27 Isa CunninghamLOVELACE [facility] 1.2.840.114 [id number] Univers 00:00:00 00:00:00 [place] HEALTH 350.1.13.10 ity of [place] 4.2.7.2.686 Kilo as KRZYSZTOF?BLEA [id number] [address] OFFICE [facility] 2021-11-26 2021-11-26 Outpatient R WON MATT [facility] [id number] Univers 15:40:00 16:24:04 WON MATT [facility] 2021-11-26 2021-11-26 Office Vernell [facility] 1.2.840.114 [id number] Univers 15:40:00 16:24:04 Visit Won Serra [facility] 350.1.13.10 ity of [place] 4.2.7.2.686 Kilo as KRZYSZTOF?BLEA [id number] Ok adolph[address] MEDICAL OFFICE BUILDING 2021-11-19 2021-11-19 Outpatient R WON MATT [facility] [id number] Univers 09:57:12 23:59:00 WON MATT [facility] 2021-11-19 2021-11-19 Hospital [facility] 1.2.463.893 [id number] Univers 09:57:12 23:59:00 Encounter Won Serra [place] 350.1.13.10 ity of [place] 4.2.7.2.686 [place] [facility] [phone] [facility] [address] 2021-11-18 2021-11-18 Orders Doctor LILLIANA 1.2.840.114 [id number] Univers 00:00:00 00:00:00 Only Unassigned, MACKENZIE 350.1.13.10 it[place] [facility] 4.2.7.2.686 Kilo as [id number] [facility] [address] 2021-11-12 2021-11-[address] [facility] 1.2.840.114 10 [id number] [facility] 14:36:20 15:29:10 Visit , ITALIA AMBULATOR 350.1.13.21 College Y 0.2.7.2.686 of [id number] [facility] 800 e 2021-11-09 2021-11-09 Outpatient Braulio PÉREZ [facility] [id number] Univers 13:00:00 13:00:00 DANIEL collins o f [facility] 2021-11-05 2021-11-05 Outpatient Braulio CUNNINGHAM [facility] [id number] Univers 10:40:00 10:40:00 ANGELA collins [facility] 2021-11-02 2021-11-02 Outpatient WON SALDIVAR [facility] [id number] Univers 13:00:00 14:14:42 WON MATT [facility] 2021-11-02 2021-11-02 Office Vernell [facility] 1.2.840.114 [id number] Univers 13:00:00 14:14:42 Visit [facility] 350.1.13.10 ity of [place] 4.2.7.2.686 Kilo as KRZYSZTOF?BLEA [id number] [address] MEDICAL OFFICE [facility] 2021-11-01 2021-11-01 Office Bang, [facility] 1.2.840.114 [id number] [facility] 09:45:00 10:00:00 Visit Keerthi Dias AMBULATOR 350.1.13.21 College Y 0.2.7.2.686 of [phone] [facility] 300 e 2021-11-01 2021-11-01 Orders Doctor LILLIANA 1.2.840.114 [id number] Univers 00:00:00 00:00:00 Only Unassigned, MACKENZIE 350.1.13.10 it[place] [facility] 4.2.7.2.686 Kilo as [id number] [address] 2021-10-28 2021-10-28 Telephone [facility] 1.2.597.128 [id number] Univers 00:00:00 00:00:00 Critical access hospital 350.1.13.10 ity of [place] 4.2.7.2.686 Kilo as KRZYSZTOF?BLEA [id number] [address] MEDICAL OFFICE [facility] 2021-10-26 2021-10-26 Telephone [facility] 1.2.247.844 [id number] Univers 00:00:00 00:00:00 Angela HEALTH 350.1.13.10 ity of [place] 4.2.7.2.686 Kilo as KRZYSZTOF?BLEA [phone] [address] MEDICAL OFFICE [facility] 2021-10-25 2021-10-25 Outpatient R OCTAVIO [facility] [id number] Univers 14:40:00 15:55:58 [facility] 2021-10-25 2021-10-25 Office [facility] 1.2.840.114 [id number] Univers 14:40:00 15:55:58 Visit Critical access hospital 350.1.13.10 ity of [place] 4.2.7.2.686 Kilo as KRZYSZTOF?BLEA [id number] [address] MEDICAL OFFICE [facility] 2021-10-25 2021-10-25 Telephone [facility] 1.2.008.617 [id number] Univers 00:00:00 00:00:00 Angela HEALTH 350.1.13.10 ity of [place] 4.2.7.2.686 Kilo as KRZYSZTOF?BLEA [id number] [address] MEDICAL OFFICE [facility] 2021-10-25 2021-10-25 Orders Doctor LILLIANA 1.2.840.114 [id number] Univers 00:00:00 00:00:00 Only Unassigned, MACKENZIE 350.1.13.10 ity [place] [facility] 4.2.7.2.686 Kilo as [id number] [address] 2021-10-20 2021-10-20 Telephone [facility] 1.2.266.541 [id number] Univers 00:00:00 00:00:00 [place] HEALTH 350.1.13.10 ity of [place] 4.2.7.2.686 Kilo as KRZYSZTOF?BLEA [id number] [address] OFFICE [facility] 2021-09-24 2021-09-24 Outpatient Braulio CUNNINGHAM [facility] [id number] Univers 08:40:00 08:40:00 [facility] 2021-09-24 2021-09-24 Outpatient Braulio CUNNINGHAM [facility] [id number] Univers 08:30:00 08:30:00 ANGELA ity [facility] 2021-09-17 2021-09-17 Outpatient WON SALDIVAR [facility] [id number] Univers 11:00:00 11:00:00 WON MATT [facility] 2021-09-13 2021-09-13 Telephone [facility] 1.2.372.423 [id number] Univers 00:00:00 00:00:00 Angela HEALTH 350.1.13.10 [facility] 4.2.7.2.686 Kilo as KRZYSZTOF?BLEA [phone] Ok salvatore ESTRADA [address] MEDICAL OFFICE [facility] 2021-09-13 2021-09-13 Orders Doctor LILLIANA [id number] [id number] Univers 00:00:00 00:00:00 Only Unassigned, MACKENZIE 350.1.13.10 ity of [place] [facility] 4.2.7.2.686 Kilo as [phone] [address] 2021-09-10 2021-09-10 Outpatient R OCTAVIO [facility] [id number] Univers 16:00:00 17:05:49 [facility] 2021-09-10 2021-09-10 Office [facility] 1.2.840.114 [id number] Univers 16:00:00 17:05:49 Visit Critical access hospital 350.1.13.10 ity of [place] 4.2.7.2.686 Kilo as KRZYSZTOF?BLEA [phone] [facility] DAWK[facility] OFFICE [facility] 2021-09-05 2021-09-05 Telephone [facility] [id number] Univers 00:00:00 00:00:00 Chary A HEALTH 350.1.13.10 i ty of [place] 4.2.7.2.686 Kilo as KRZYSZTOF?BLEA [phone] [facility] [address] OFFICE [facility] 2021-09-03 2021-09-03 [facility], Thom - Sd [facility] 1.2.840.1 [id number] Univers 07:45:00 08:09:03 Visit [facility] 350.1.13.10 ity of [place] 4.2.7.2.686 Kilo as KRZYSZTOF?BLEA [phone] [facility] MARIZA [address] [facility] OFFICE [facility] 2021-09-03 2021-09-03 Outpatient R OCTAVIO [facility] [id number] Univers 07:45:00 07:45:00 [facility] 2021-09-02 2021-09-02 Telephone [facility] [id number] Univers 00:00:00 00:00:00 [place] HEALTH 350.1.13.10 ity of [place] 4.2.7.2.686 Kilo as KRZYSZTOF?BLEA [phone] [address] MEDICAL OFFICE [facility] 2021-08-27 2021-08-27 [facility], Ang - Db [facility] 1.2.840.1 [id number] Univers 15:30:00 15:45:00 [facility] 350.1.13.10 [facility] 4.2.7.2.686 Kilo as KRZYSZTOF?BLEA [phone] [facility] MARIZA [address] MEDICAL OFFICE BUILDING 2021-08-27 2021-08-27 Outpatient R OCTAVIO [facility] [id number] Univers 14:00:00 15:19:02 [facility] 2021-08-27 2021-08-27 Office [facility] 1.2.840.114 [id number] Univers 14:00:00 15:19:02 Visit Critical access hospital 350.1.13.10 ity of [place] 4.2.7.2.686 Kilo as KRZYSZTOF?BLEA [phone] [address] OFFICE [facility] 2021-08-20 2021-08-20 Refill [facility] 1.2.840.114 [id number] Univers 00:00:00 00:00:00 Chary A HEALTH 350.1.13.10 i ty of [place] 4.2.7.2.686 Kilo as KRZYSZTOF?BLEA [phone] [address] MEDICAL OFFICE [facility] 2021-07-09 2021-07-09 Outpatient R ODILON [facility] [id number] Univers 16:00:00 17:29:20 [facility] 2021-07-09 2021-07-09 Office OdilonLOVELACE [facility] 1.2.840.114 [id number] Univers 16:00:00 17:29:20 Visit Chary A HEALTH 350.1.13.10 i ty of [place] 4.2.7.2.686 Kilo as KRZYSZTOF?BLEA [phone] [address] MEDICAL OFFICE [facility] 2021-07-09 2021-07-09 Outpatient R ODILON [facility] [id number] Univers 16:00:00 17:29:20 CHARY ity [facility] 2021-06-09 2021-06-09 Beto Lucia [facility] 1.2.840.114 [id number] Univers 00:00:00 00:00:00 Management Rania HEALTH 350.1.13.10 ity of [place] 4.2.7.2.686 Kilo as KRZSYZTOF?BLEA [phone] [address] OFFICE [facility] 2021-06-09 2021-06-09 Tapan Bib [facility] 1.2.840.114 [id number] Univers 00:00:00 00:00:00 (Out) Ree HEALTH 350.1.13.10 it y [facility] 4.2.7.2.686 Kilo as KRZYSZTOF?BLEA [phone] [address] OFFICE [facility] 2021-06-08 2021-06-08 Laboratory Only, Ang Db Test [facility] 1.2.8 40.114 [id number] Univers 09:15:00 09:30:00 Only Rambo Tera HEALTH 350.1.13.10 ity of [facility] 4.2.7.2.686 Kilo as KRZYSZTOF?BLEA [phone] [address] OFFICE [facility] 2021-06-08 2021-06-08 Outpatient R RAMBO [facility] [id number] Univers 09:15:00 09:15:00 TREA ity [facility] 2021-05-17 2021-05-17 Outpatient R JOEL [facility] [id number] Univers 13:30:00 13:30:00 karina NAYAK [facility] 2021-05-13 2021-05-13 Orders Doctor TIJERINA 1.2.840.114 [id number] Univers 00:00:00 00:00:00 Only Unassigned, MACKENZIE 350.1.13.10 ity of [place] [facility] 4.2.7.2.686 Kilo as [phone] [address] 2021-05-03 2021-05-03 Office LINK, [facility] 1.2.840.114 [id number] [facility] 10:12:54 11:16:44 Visit KEERTHI AMBULATOR 350.1.13.21 College Y 0.2.7.2.686 of [id number] [facility] raimundo 300 e 2021-05-03 2021-05-03 Outpatient [facility] [id number] [facility] 00:00:00 00:00:00 Colleg e of Medicin e 2021-05-03 2021-05-03 [facility] [id number] [facility] 00:00:00 00:00:00 Colleg e of Medicin e 2021-05-03 2021-05-03 Telephone Lyla [facility] 1.2.035.647 [id number] Univers 00:00:00 00:00:00 Amaya HEALTH 350.1.13.10 it y of [place] 4.2.7.2.686 Kilo as KRZYSZTOF?BLEA [phone] [address] MEDICAL OFFICE [facility] 2021-04-30 2021-04-30 Telephone Randal [facility] 1.2.892.048 [id number] Univers 00:00:00 00:00:00 Gerardo HEALTH 350.1.13.10 it y of [place] 4.2.7.2.686 Kilo as KRZYSZTOF?BLEA [phone] [address] OFFICE [facility] 2021-04-29 2021-04-29 Nurse LILLIANA Jain 1.2.840.114 [id number] Univers 00:00:00 00:00:00 Triage Pamela MANN 350.1.13.10 it y of [facility] 4.2.7.2.686 Kilo as [phone] [facility] [address] 2021-04-29 2021-04-29 Refshruthi Hobson [facility] 1.2.840.114 [id number] Univers 00:00:00 00:00:00 Wonrayna A [place] 350.1.13.10 ity of [place].2.7.2.686 [place] [phone] [place] [address] [address] [facility] 2021-04-23 2021-04-23 Outpatient R BETO, [facility] [id number] Univers 09:00:00 09:00:00 DANIEL ity o f [facility] 2021-04-14 2021-04-14 Outpatient R JOCE, [facility] [id number] Univers 09:30:00 09:30:00 WONDIFUL ity o f [facility] 2021-04-14 2021-04-14 Outpatient R JOCE, [facility] [id number] Univers 09:30:00 09:30:00 WONDIFUL ity o f [facility] 2021-04-05 2021-04-05 Outpatient R ARIAN, [facility] [id number] Univers 10:30:00 10:30:00 JESSICA ity of [facility] 2021-04-05 2021-04-05 Orders Doctor TIJERINA 1.2.840.114 [id number] Univers 00:00:00 00:00:00 Only Unassigned, MACKENZIE 350.1.13.[address] [facility] 4.2.7.2.686 Kilo as [phone] [address] 2021-03-22 2021-03-22 Outpatient R LYLA, [facility] [id number] Univers 11:30:00 12:40:29 AMAYA ity of [facility] 2021-03-22 2021-03-22 [facility] 1.2.840.114 [id number] Univers 11:30:00 12:40:29 Visit Amaya HEALTH 350.1.13.10 it y of [place] 4.2.7.2.686 [place]ilo as KRZYSZTOF?BLEA [phone] Ok salvatore ESTRADA [address] [place] [address] MEDICAL OFFICE BUILDING 2021-03-21 2021-03-21 [facility]shruthi [facility] 1.2.840.114 [id number] Univers 00:00:00 00:00:00 Wondiful A HEALTH 350.1.13.10 ity of [place] 4.2.7.2.686 Kilo as PROFESSIO [phone] Ok salvatore PANTOJA [address] [place] [address] OFFICE BUILDING ONE 2021-02-22 2021-02-22 Office LAST Eric 1.2.840.114 [id number] Univers 14:30:00 15:00:00 Visit Jessica R Y HEALTH 350.1.13.10 ity of [place] [id number] [address] 2021-02-22 2021-02-22 Outpatient R ERIC, [facility] [id number] Univers 14:30:00 14:30:00 JESSICA ity [facility] 2021-02-22 2021-02-22 Outpatient R ERIC, [facility] [id number] Univers 14:30:00 14:30:00 JESSICA ity [facility] 2021-01-25 2021-01-25 [facility]uthi [facility] 1.2.840.114 [id number] Univers 00:00:00 00:00:00 Wondiful A HEALTH 350.1.13.10 ity of [place] 4.2.7.2.686 Kilo as PROFESSIO [phone] [address] OFFICE [facility] ONE 2021-01-21 2021-01-21 Beto [facility] 1.2.840.114 [id number] Univers 00:00:00 00:00:00 Management Wondiful A HEALTH 350.1.13.10 ity of [place] 4.2.7.2.686 Kilo as KRZYSZTOF?BLEA [phone] [address] OFFICE [facility] 2021-01-21 2021-01-21 Beto [facility] 1.2.840.114 [id number] Univers 00:00:00 00:00:00 Management Wondiful A HEALTH 350.1.13.10 ity of [place] 4.2.7.2.686 Kilo as KRZYSZTOF?BLEA [phone] [address] OFFICE [facility] 2021-01-20 2021-01-20 Outpatient R TERESITA [facility] [id number] Univers 09:25:28 23:59:00 SENDIL ity [facility] 2021-01-20 2021-01-20 Austin Gonzales [facility] 1.2.8 40.114 [id number] Univers 09:00:00 23:59:00 Encounter Ceci Lo [place] 350.1.1 3.10 ity of [place].2.7.2.[place] C[place] [phone] [address] 2021-01-15 2021-01-15 Outpatient R JOCE [facility] [id number] Univers 10:10:00 10:10:00 WONDIFUL ity o f [facility] 2021-01-15 2021-01-15 Imm/Inj Vaccine, Ang Db Cbc Fam [facility] 1. 2.840.114 [id number] Univers 08:47:34 08:57:34 Visit Austin Hobson HEALTH 350.1.13.1 0 ity of [place] 4.2.7.2.686 Kilo as KRZYSZTOF?BLEA [phone] [facility] [address] MEDICAL OFFICE [facility] 2021-01-15 2021-01-15 Brass Cleaner Lab, Ang - Db [facility] 1.2.840.1 14 [id number] Univers 08:20:53 08:35:53 Visit Austin Hobson HEALTH 350.1.13.1 0 ity of [place] 4.2.7.2.686 Kilo as KRZYSZTOF?BLEA [phone] Ok salvatore ESTRADA [address] MEDICAL OFFICE BUILDING 2021-01-14 2021-01-14 Office [place] [facility] 1.2.840.114 [id number] Univers 13:02:10 13:52:29 Visit Austin A HEALTH 350.1.13.10 ity of [place] 4.2.7.2.686 Kilo as KRZYSZTOF?BLEA [phone] Ok salvatore [facility] 044 [facility] OFFICE [facility] 2021-01-14 2021-01-14 Outpatient Braulio JOCE [facility] [id number] Univers 13:00:00 13:52:29 WONDIFUL ity o paula [facility] 2020-12-23 2021-01-10 Office LINK, [facility] 1.2.840.114 [id number] [facility] 15:05:24 13:24:06 Visit KEERTHI AMBULATOR 350.1.13.21 College Y 0.2.7.2.686 of [id number] [facility] 300 e 2020-12-04 2020-12-04 Hospital [facility] 1.2.284.520 [id number] Univers 12:31:25 23:59:00 Encounter Wondiful A [place] 350.1.13.10 ity of [place]2.[place].2.[place] [phone] [facility] [address] 2020-12-04 2020-12-04 [facility] [id number] Univers 10:15:00 12:44:29 WONDIFUL ity o f [facility] 2020-12-04 2020-12-04 Office [facility] 1.2.840.114 [id number] Univers 10:12:12 12:44:29 Visit Wondiful A HEALTH 350.1.13.10 ity of [facility] 4.2.7.2.686 Kilo as KRZYSZTOF?BLEA [phone] [address] MEDICAL OFFICE BUILDING 2020-10-16 2020-10-16 Patient [facility] 1.2.840.114 [id number] Univers 00:00:00 00:00:00 Secure Msg Wondiful A Health 350.1.13.10 ity of [place] 4.2.7.2.686 Kilo as Krzysztof?Blea [phone] [address] Medical Office [facility] 2020-10-13 2020-10-13 Telephone [facility] 1.2.840.114 [id number] Univers 00:00:00 00:00:00 Wondiful A Health 350.1.13.10 ity of [place] 4.2.7.2.686 [place]ilo as Krzysztof?Blea [phone] [address] Medical Office Building 2020-10-08 2020-10-08 Patient Doctor TIJERINA 1.2.840.114 [id number] Univers 00:00:00 00:00:00 Secure Msg Unassigned, MACKENZIE 350.1.13.10 ity of [place] [facility] 4.2.7.2.686 Kilo as [phone] [facility] [address] 2020-10-08 2020-10-08 Refill [facility] 1.2.840.114 [id number] Univers 00:00:00 00:00:00 Wondiful A Health 350.1.13.10 ity of [place] 4.2.7.2.686 Kilo as Krzysztof?Blea [phone] [address] Medical Office [facility] 2020-10-08 2020-10-08 Telephone [facility] 1.2.840.114 [id number] Univers 00:00:00 00:00:00 Wondiful A Health 350.1.13.10 ity of [place] 4.2.7.2.686 Kilo as Krzysztof?Blea [phone] [address] Medical Office [facility] 2020-10-06 2020-10-06 Outpatient [facility] [id number] Univers 09:00:00 09:00:00 WONDIFUL ity o f [facility] 2020-10-05 2020-10-05 Office [facility] 1..840.114 [id number] Univers 11:08:16 12:09:41 Visit Wondiful A Health 350.1.13.10 ity of [place] 4.2.7.2.686 [place]ilo as Krzysztof?Blea [phone] [address] Medical Office [facility] 2020-10-05 2020-10-05 Outpatient R JOCE [facility] [id number] Univers 11:15:00 11:15:00 WONDIFUL ity o f [facility] 2020-09-15 2020-09-15 Outpatient R JOCE [facility] [id number] Univers 14:30:00 14:30:00 WONDIFUL ity o f [facility] 2020-08-06 2020-08-06 Outpatient R BETO [facility] [id number] Univers 00:00:00 00:00:00 DANIEL ity o f [facility] 2020-07-20 2020-07-20 Brass Cleaner Lab, Adc Fam Pob I [facility] 1.2. 840.114 [id number] Univers 10:43:24 11:03:24 Visit Mauro Pérezjun Health 350.1.13.10 ity of [place] 4.2.7.2.686 Kilo as Professio [phone] [address] One 2020-07-20 2020-07-20 Office [facility] 1.2.840.114 [id number] Univers 09:55:53 10:27:33 Visit Daniel Albrecht 350.1.13.10 ity of [place].2.[place] [phone] [address] 2020-07-20 2020-07-20 Outpatient R [facility] [id number] Univers 10:00:00 10:00:00 SLAVASEVERO karina o f [facility] 2020-06-02 2020-06-02 Telephone [facility] 1.2.840.114 [id number] Univers 00:00:00 00:00:00 Wondiful A Health 350.1.13.10 ity of [place] 4.2.7.2.686 [place]ilo as Professio [phone] [address] 2020-06-01 2020-06-01 Refill [facility] 1.2.840.114 [id number] Univers 00:00:00 00:00:00 Daniel Albrecht 350.1.13.10 ity of [place].2.[place] [phone] [place] [id number] [facility] 2020-05-18 2020-05-18 Orders Doctor LILLIANA 1.2.840.114 [id number] Univers 00:00:00 00:00:00 Only Unassigned, MACKENZIE 350.1.13.10 ity of [place] [facility] 4.2.7.2.686 Kilo as [phone] [address] 2020-05-04 2020-05-04 Office LINK, [facility] 1.2.840.114 [id number] [facility] 10:43:07 12:09:48 Visit KEERTHI AMBULATOR 350.1.13.21 College Y 0.2.7.2.686 of [id number] [facility] 300 e 2020-04-29 2020-04-29 Telephone [facility], [facility] 1.2.025.224 [id number] 00:00:00 00:00:00 Qiasevero [place] 350.1.13.10 [place] 4.2.7.2.686 Professio [phone] [address] 2020-04-29 2020-04-29 Refill [facility], [facility] 1.2.840.114 [id number] 00:00:00 00:00:00 Qiasevero [place] 350.1.13.10 [place] 4.2.7.2.686 Professio [phone] [address] 2020-04-29 2020-04-29 Telephone [facility], [facility] 1.2.668.031 [id number] [facility] 00:00:00 00:00:00 Qiasevero [place] 350.1.13.10 ity of [place].2.[place] [phone] [address] 2020-04-29 2020-04-29 Refill [facility], [facility] 1.2.840.114 [id number] [facility] 00:00:00 00:00:00 Qiasevero [place] 350.1.13.10 ity of [place] 4.2.7.2.[place] [phone] [address] 2020-04-25 2020-04-25 Urgent Provider, [facility] 1.2.079.047 [id number] 10:12:47 10:32:47 Care Ang [facility] 350.1.13.10 Care [place] 4.2.7.2.686 Professio [phone] [place] [address] Office Building One 2020-04-25 2020-04-25 Urgent Provider, [facility] 1.2.840.114 [id number] [facility] 10:12:47 10:32:47 Care Mine No Health 350.1.13.10 ity of [place] 4.2.7.2.686 Kilo as Professio [phone] [address] Office [facility] 2020-04-25 2020-04-25 Outpatient R ONEAL [facility] [id number] Univers 10:20:00 10:20:00 MINE ity o f [facility] 2020-04-15 2020-04-15 Telephone [facility] 1.2.840.114 [id number] 00:00:00 00:00:00 Wondiful A Health 350.1.13.10 [place] 4.2.7.2.686 Professio [phone] [place] [address] Office [facility] 2020-04-15 2020-04-15 Telephone [facility] 1.2.840.114 [id number] Univers 00:00:00 00:00:00 Wondiful A Health 350.1.13.10 ity of [place] 4.2.7.2.686 Kilo as Professio [phone] [address] 2020-03-07 2020-03-07 Patient Tyler [facility] 1.2.840.114 [id number] 00:00:00 00:00:00 Outreach Ethan PRIMARY 350.1.13.10 Herbie CARE 4.2.7.2.686 PAVILLION [phone] [facility] 2020-03-07 2020-03-07 Patient Tyler [facility] 1.2.840.114 [id number] Univers 00:00:00 00:00:00 Outreach Ethan PRIMARY 350.1.13.10 i ty of [place]2.7.2.[place]AV[place] [phone] [address] 2020-01-16 2020-01-16 Outpatient R JOCE [facility] [id number] Univers 16:30:00 16:30:00 WONDIFUL ity o f [facility] 2020-01-16 2020-01-16 Telemedici [facility] 1.2.840.114 [id number] 16:09:25 16:24:25 ne Visit Wondiful A Health 350.1.13.10 [place] 4.2.7.2.686 Professio [phone] [address] 2020-01-16 2020-01-16 Telemedici [facility] 1.2.840.114 [id number] [facility] 16:09:25 16:24:25 ne Visit Wondiful A Health 350.1.13.10 ity of [place] 4.2.7.2.686 Kilo as Professio [phone] Ok dical [facility] [address] Office Building One 2020-01-12 2020-01-12 Orders Doctor LILLIANA 1.2.840.114 [id number] 00:00:00 00:00:00 Only Unassigned, MACKENZIE 350.1.13.10 [place] [facility] 4.2.7.2.686 [phone] [facility] 2020-01-12 2020-01-12 Orders Doctor LILLIANA 1.2.840.114 [id number] Univers 00:00:00 00:00:00 Only Unassigned, MACKENZIE 350.1.13.10 ity of [place] [facility] 4.2.7.2.686 Kilo as [phone] [address] 2020-01-06 2020-01-06 Office Link, [facility] 1.2.840.114 [id number] 10:46:16 11:44:31 Visit Keerthi Dias AMBULATOR 350.1.13.21 Y 0.2.7.2.686 [phone] [facility] 2020-01-06 2020-01-06 Office [facility], [facility] 1.2.840.[id number] [place] [address] 10:46:16 11:44:31 Visit Keerthi Dias AMBULATOR 350.1.13.21 College Y 0.2.7.2.686 of [phone] [facility] 300 e 2019-12-16 2019-12-16 Case [facility] 1.2.840.114 [id number] 162 00:00:00 00:00:00 Management Wondiful A Health 350.1.13.10 [place] 4.2.7.2.686 Professio [phone] nal [facility] Office Building One 2019-12-16 2019-12-16 Beto Hobson [facility] 1.2.840.114 [id number] 162 Univers 00:00:00 00:00:00 Management Wondiful A Health 350.1.13.10 ity of [place] 4.2.7.2.686 Kilo as Professio [phone] Ok dical [address] Office Building One 2019-12-12 2019-12-12 Brass Cleaner 1, Adc Lab [facility] 1.2.840.114 [id number] 09:36:54 09:51:54 Visit [place] 350.1.13.10 [place] 4.2.7.2.686 [place] [phone] [facility] 2019-12-12 2019-12-12 Brass Cleaner 1, Adc Lab [facility] 1.2.840.114 [id number] [facility] 09:36:54 09:51:54 Visit Austin Hobson 350.1.13. 10 ity of [place] 4.2.7.2.686 [place] [facility] [phone] [address] 2019-12-12 2019-12-12 Outpatient R [facility] [id number] Univers 08:30:00 08:30:00 ity of [facility] 2019-12-12 2019-12-12 Telephone [facility] 1.2.840.114 [id number] 00:00:00 00:00:00 Wondiful A Health 350.1.13.10 [place] 4.2.7.2.686 Professio [phone] [place] [address] Office Building [facility] 2019-12-12 2019-12-12 Telephone [facility] 1.2.840.114 [id number] Univers 00:00:00 00:00:00 Wondiful A Health 350.1.13.10 ity of [place] 4.2.7.2.686 Kilo as Professio [phone] [address] Office Building [facility] 2019-12-05 2019-12-05 Orders Doctor LILLIANA 1.2.840.114 [id number] 00:00:00 00:00:00 Only Unassigned, MACKENZIE 350.1.13.10 [place] [facility] [phone] 009 2019-12-05 2019-12-05 Orders Doctor LILLIANA 1.2.840.114 [id number] Univers 00:00:00 00:00:00 Only Unassigned, MACKENZIE 350.1.13.10 ity of [place] [facility] 4.2.7.2.686 Kilo as [phone] [address] 2019-11-14 2019-11-14 Beto Hobson [facility] 1.2.840.114 [id number] 00:00:00 00:00:00 Management Wonyasminful A Health 350.1.13.10 [place] 4.2.7.2.686 Professio [phone] [place] [address] Office Building [facility] 2019-11-14 2019-11-14 Beto Hobson [facility] 1.2.840.114 [id number] Univers 00:00:00 00:00:00 Management Wondiful A Health 350.1.13.10 ity of [place] 4.2.7.2.686 Kilo as Professio [phone] [address] 2019-11-13 2019-11-13 Beto Hobson [facility] 1.2.840.114 [id number] 00:00:00 00:00:00 Management Wondiful A Health 350.1.13.10 [place] 4.2.7.2.686 Professio [phone] [place] [address] Office Building [facility] 2019-11-13 2019-11-13 Beto Hobson [facility] 1.2.840.114 [id number] Univers 00:00:00 00:00:00 Management Wondiful A Health 350.1.13.10 ity of [place] 4.2.7.2.686 Kilo as Professio [phone] [address] Office [facility] 2019-11-08 2019-11-08 Brass Cleaner Lab, Adc Fam Pob I [place] 1.2. 840.114 [id number] [facility] 11:16:17 11:26:17 Visit Austin Hobson Health 350.1.13.1 0 ity of [place] 4.2.7.2.686 Kilo as Professio [phone] [address] Office [facility] 2019-11-08 2019-11-08 Office Joce [facility] 1.2.840.114 [id number] 09:44:58 11:00:23 Visit Jamilful A Health 350.1.13.10 [place] 4.2.7.2.686 Professio [phone] [address] 2019-11-08 2019-11-08 Office [place], [facility] 1.2.840.114 [id number] Univers 09:44:58 11:00:23 Visit Wondiful A Health 350.1.13.10 ity of [place] 4.2.7.2.686 Kilo as Professio [phone] [address] 2019-11-08 2019-11-08 Out[facility] [id number] Univers 08:45:00 08:45:00 WONDIFUL ity o f [facility] 2019-09-02 2019-11-04 Telemedici [facility] 1.2.840.114 [id number] Univers 09:09:51 09:25:19 ne Visit Wondiful A [place] 350.1.13.10 ity of [place] 4.2.7.2.[place] Profess[place] [phone] [address] 2019-11-04 2019-11-04 Brass Cleaner Lab, Adc Fam Pob I [facility] 1.2. 840.114 [id number] Univers 09:02:55 09:12:55 Visit Austin Hobson Health 350.1.13.1 0 ity of [place] 4.2.7.2.686 Kilo as Professio [phone] [address] 2019-11-04 2019-11-04 Outpatient R JOCE [facility] [id number] Univers 09:00:00 09:00:00 WONDIFUL ity o f [facility] 2019-10-30 2019-10-30 Refill [facility] 1.2.840.114 [id number] Univers 00:00:00 00:00:00 Wondiful [facility] 350.1.13.10 ity of [place] 4.2.7.2.686 [place] Professio [phone] [address] 2019-10-25 2019-10-25 Refill Joce [facility] 1.2.840.114 [id number] Univers 00:00:00 00:00:00 Wondiful [facility] 350.1.13.10 ity of [place] 4.2.7.2.686 [place] as Professio [phone] Ok dical nal 044 [facility] One 2019-10-25 2019-10-25 [facility] 1.2.840.114 [id number] Univers 00:00:00 00:00:00 Wondiful [facility] 350.1.13.10 ity of [place] 4.2.7.2.686 [place] Professio [phone] Ok dical nal 044 [place] [facility] One 2019-10-07 2019-10-07 Office Link, [facility] 1.2.840.114 [id number] 08:45:50 10:08:26 Visit Keerthi Dias AMBULATOR 350.1.13.21 Y 0.2.7.2.686 [phone] 300 2019-10-07 2019-10-07 Office Link, [facility] 1.2.840.[id number] [place] [address] 08:45:50 10:08:26 Visit Keerthi Dias AMBULATOR 350.1.13.21 College Y 0.2.7.2.686 of [phone] [facility] 300 e 2019-10-07 2019-10-07 Orders Doctor LILLIANA 1.2.840.114 [id number] Univers 00:00:00 00:00:00 Only Unassigned, MACKENZIE 350.1.13.10 ity of [place] [facility] 4.2.7.2.686 Kilo as [phone] [facility] [address] 2019-09-30 2019-09-30 Office [facility] 1.2.840.114 [id number] Univers 09:15:37 09:55:50 Visit Daniel [place] 350.1.13.10 ity of [place] 4[place]2.7.2.[place] Profess[place] [phone] Ok dical nal 059 [facility] 2019-09-30 2019-09-30 [facility] [id number] Univers 09:40:00 09:40:00 DANIEL collins o f [facility] 2019-09-02 2019-09-02 Outpatient [facility] [id number] Univers 08:45:00 08:45:00 WONDIFUL ity o f [facility] 2019-08-30 2019-08-30 Telephone LILLIANA Donadl [id number] Univers 00:00:00 00:00:00 Chary MANN 350.1.13.10 i [facility] 4.2.7.2.686 [place]ilo as [phone] [address] 2019-08-29 2019-08-29 Laboratory Lab, [facility] Fam Pob I [facility] 1.2. 840.114 [id number] Univers 11:32:55 11:52:55 Only Anene, [facility] 350.1.13.10 ity of [place] 4.2.7.2.686 [place] as Professio [phone] Ok dic[address] Office Building [facility] 2019-08-29 2019-08-29 Outpatient [facility] [id number] Univers 11:40:00 11:40:00 AMAYA ity of [facility] 2019-08-29 2019-08-29 Urgent Lab, [facility] 1.2.840.114 [id number] 11:00:00 11:20:00 Care Fam Pob I Health 350.1.13.10 [place] 4.2.7.2.686 Professio [phone] [place] [address] Office [facility] 2019-08-29 2019-08-29 Urgent Lab, Formerly [facility] Pob I [facility] 1.2.840 .114 [id number] Univers 11:00:00 11:20:00 Care Casie [facility] 350.1.13.10 ity of [place] 4.2.7.2.686 [place]ilo as Professio [phone] Ok dical nal [address] [facility] 2019-08-29 2019-08-29 Outpatient R [facility] [id number] Univers 11:00:00 11:00:00 ity of [facility] 2019-08-29 2019-08-29 Letter Doctor TIJERINA 1.2.840.114 [id number] Univers 00:00:00 00:00:00 (Out) Unassigned, MACKENZIE 350.1.13.10 ity of [place] [facility] 4.2.7.2.686 Kilo as [phone] [address] 2019-08-20 2019-08-20 [facility] 1.2.840.114 [id number] Univers 00:00:00 00:00:00 Wondiful A Health 350.1.13.10 ity of [place] 4.2.7.2.686 [place] as Professio [phone] [address] Office [facility] 2019-07-30 2019-07-30 Office Kedar [facility] Encounter / Legacy 00:00:00 00:00:00 Visit Renata [id number] Com natalee [id number] [facility] 2019-07-11 2019-07-11 Outpatient R JOCE [facility] [id number] Univers 09:15:00 09:15:00 WONDIFUL ity o f [facility] 2019-07-03 2019-07-03 Telephone [facility] 1.2.840.114 [id number] Univers 00:00:00 00:00:00 Wondiful A [place] 350.1.13.10 [place]7.2.[place] Profess[place] [phone] [address] 2019-07-01 2019-07-01 Office Wilfredo [facility] Encounter/ Legacy 00:00:00 00:00:00 Visit Mirella [id number] Com natalee De La Cruz [id number] [facility] 2019-07-01 2019-07-01 Office Mirella Villalobos [facility] Encounter/ Legacy 00:00:00 00:00:00 Visit Shy Miller [id number] Communi [id number] [facility] 2019-07-01 2019-07-01 Office Wilfredo [facility] Encounter/ Legacy 00:00:00 00:00:00 Visit Mirella [id number] Com natalee De La Cruz [id number] Health 2019-07-01 2019-07-01 Telephone [facility] 1.2.840.114 [id number] Univers 00:00:00 00:00:00 Wondiful A Health 350.1.13.10 ity of [place] 4.2.7.2.686 [place] Professio [phone] [address] Office [facility] 2019-06-25 2019-06-25 Office Wilfredo, [facility] Encounter/ Legacy 00:00:00 00:00:00 Visit Mirella [id number] Com natalee De La Cruz [id number] [facility] 2019-06-25 2019-06-25 Office Wilfredo, [facility] Encounter/ Legacy 00:00:00 00:00:00 Visit Mirella [id number] Com natalee De La Cruz [id number] [facility] 2019-06-25 2019-06-25 Office Wilfredo, [facility] Encounter/ Legacy 00:00:00 00:00:00 Visit Mirella [id number] Com natalee De La Cruz [id number] [facility] 2019-06-25 2019-06-25 Office Wilfredo, Mirella De La Cruz [facility] Encounter/ Legacy 00:00:00 00:00:00 Visit Renata Thacker [id number] [address] [place] [address] [id number] [facility] 2019-05-14 2019-05-14 [facility] 1.2.840.114 [id number] Univers 00:00:00 00:00:00 Wondiful A Health 350.1.13.10 ity of [place] 4.2.7.2.686 [place] Professio [phone] [address] 2019-04-05 2019-04-05 Outpatient R JOCE [facility] [id number] Univers 13:15:00 14:32:32 WONDIFUL ity o f [facility] 2019-04-05 2019-04-05 Office [facility] 1.2.840.114 [id number] Univers 13:11:19 14:32:32 Visit Wondiful A Health 350.1.13.10 ity of [place] 4.2.7.2.686 [place] Professio [phone] [address] 2019-04-04 2019-04-04 Sloan Pérez [facility] 1.2.706.518 [id number] Univers 00:00:00 00:00:00 Daniel Sie[place]ton 350.1.13.10 [place].2.[place] Profess[place] [phone] Ok dical nal 059 [facility] 2019-04-01 2019-04-01 Brass Cleaner 2, Adc Lab [facility] 1.2.840.114 [id number] Univers 11:11:10 11:26:10 Visit Daniel Pérez 350.1.13.10 [place] 4[place]2.7.2.[place] Profess[place] [phone] Ok dical nal 353 [facility] 2019-04-01 2019-04-01 Out[facility] [id number] Univers 11:15:00 11:15:00 DANIEL collins o f [facility] 2019-04-01 2019-04-01 Office [facility] 1.2.840.114 [id number] Univers 09:49:17 11:01:30 Visit Daniel Albrecht 350.1.13.10 [place] of [place] 4[place]2.7.2.[place] Profess[place] [phone] Ok dical nal 059 [facility] 2019-04-01 2019-04-01 Orders Doctor LILLIANA 1.2.840.114 [id number] Univers 00:00:00 00:00:00 Only Unassigned, MACKENZIE 350.1.13.10 [place] [facility] 4.2.7.2.686 [place] as [phone] [address] 2018-08-03 2018-08-03 Outpatient R JOCE [facility] [id number] Univers 12:45:00 12:45:00 WONDIFUL itkaren o f [facility] Results Test Description Test Time Test Comments Results Result Comments Source N-TERMINAL PRO-BNP 2022-06-11 15:02:10 Test Item Value Reference Range Interpretation Comme nts NT-proBNP (test code = 4118877802) 782 pg/mL <=450 H ALEXIS (test code = ALEXIS) Biotin has been reported to cause a negative bias, interpret results relative to patient's use of biotin. Lab Interpretation (test code = 64595-9) [facility]normal [facility] (NA, K, CL, CO2, GLUCOSE, BUN, CREATININE, CA)2022-06-11 14:53:52 Test Item Value Reference Range Interpretation Comments NA (test code = 139 mmol/L 135-145 5101462917) K (test code = 4.5 mmol/L 3.5-5.0 3648741736) CL (test code = 103 mmol/L 98-108 4435076294) CO2 TOTAL (test code = 30 mmol/L 23-31 1466906151) AGAP (test code = 6 2-16 6561312030) BUN (test code = 17 mg/dL 7-23 2867980310) GLUCOSE (test code = 134 mg/dL 70-110 H 2011777314) CREATININE (test code = 0.57 mg/dL 0.50-1.04 7278773091) CALCIUM (test code = 9.0 mg/dL 8.6-10.6 2179995505) eGFR (test code = 100.6 mL/min/1.73m2 4850214951) ALEXIS (test code = ALEXIS) Association of [...] tests). Lab Interpretation Abnormal (test code = 25147-6) [facility] [id number] 11:00:26 Test Item Value Reference Range Interpretation Comments POC-GLUCOSE METER 139 mg/dL 70-110 H : TESTED A T [facility] 6720 (BEAKER) (test code = KAREN Ramsey [facility], 1538) [address]: Surveyor Oil Well Directional/Techni socrates ID = [id number] for Co sadia Sridevi POCT-GLUCOSE [id number] 08:28:34 Test Item Value Reference Range Interpretation Comments POC-GLUCOSE METER 147 mg/dL 70-110 H : TESTED A T [facility] 6720 (BEAKER) (test code = WILBERTHI Braulio [facility], 1538) 83754: Surveyor Oil Well Directional/Techni socrates ID = [id number] for Co sadia, Sridevi BASIC METABOLIC [id number] 05:30:33 Test Item Value Reference Range Interpretation [...] not appl icable for dialysis patien ts [employer] ID - TERRELL [id number] 05:30:33 Test Item Value Reference Range Interpretation Comments MAGNESIUM (BEAKER) (test code = 2.1 mg/dL 1.6-2.6 627) [employer] ID - TERRELL GCBC W/PLT COUNT & AUTO [id number] 05:08:16 Test Item Value Reference Range Interpretation [...] PERCENT (BEAKER) (test code = 2801) POCT-GLUCOSE [id number] 22:18:08 Test Item Value Reference Range Interpretation Comments POC-GLUCOSE METER 150 mg/dL 70-110 H : Notified RN/MD: ([facility]) (test code = TESTED AT [facility] 6720 1538) [facility], [address]: Surveyor Oil Well Directional/Techni socrates ID = [id number] for AVINASH GARRIDO HERNÁN POCT-GLUCOSE [id number] 18:35:11 Test Item Value Reference Range Interpretation Comments POC-GLUCOSE METER 153 mg/dL 70-110 H : [facility] (test code [facility], = 1538) 98572: Surveyor Oil Well Directional/Techni socrates ID = [id number] for LATT CRUZORE - CARA, BRODERICK POCT-GLUCOSE [id number] 12:18:53 Test Item Value Reference Range Interpretation Comments POC-GLUCOSE METER 149 mg/dL 70-110 H : [facility]) (test code [facility], = 1538) 65528: Surveyor Oil Well Directional/Techni socrates ID = [id number] for LATT IMORE - CARA, BRODERICK POCT-GLUCOSE [id number] 09:02:22 Test Item Value Reference Range Interpretation Comments POC-GLUCOSE METER 138 mg/dL 70-110 H : TESTED A T [facility] 6720 ([facility] (test code [facility], = 1538) 65569: Surveyor Oil Well Directional/Techni socrates ID = [id number] for LATT IMORE - CARA, BRODERICK BASIC METABOLIC [id number] 06:05:05 Test Item Value Reference Range Interpretation Comments SODIUM (AKER) 138 meq/L 136-145 (test code = 381) [...] not appl icable for dialysis patien ts Surveyor [employer] Well Directional ID - [id number] 06:05:05 Test Item Value Reference Range Interpretation Comments MAGNESIUM (BEAKER) (test code = 2.1 mg/dL 1.6-2.6 627) Surveyor [employer]irectional ID - [id number] 06:05:05 Test Item Value Reference Range Interpretation Comments PHOSPHORUS (BEAKER) (test code = 4.8 mg/dL 2.3-4.7 H 604) Surveyor [employer]irectional ID - MARCOCBC W/PLT COUNT & AUTO [id number] 05:46:55 Test Item Value Reference Range Interpretation [...] PERCENT (BEAKER) (test code = 2801) POCT-GLUCOSE [id number] 20:25:43 Test Item Value Reference Range Interpretation Comments POC-GLUCOSE METER 153 mg/dL 70-110 H : TESTED A T [facility] 6720 (BEAKER) (test code = KAREN SWANN [place], 1538) 57257: Surveyor Oil Well Directional/Techni socrates ID = [id number] for Felicia Watkins POCT-GLUCOSE [id number] 18:10:56 Test Item Value Reference Range Interpretation Comments POC-GLUCOSE METER 162 mg/dL 70-110 H : TESTED A T [facility] 6720 (BEAKER) (test code [facility], = 1538) 81441: Surveyor Oil Well Directional/Techni socrates ID = [id number] for LATT IMORE - CARA, BRODERICK POCT-GLUCOSE [id number] 13:16:14 Test Item Value Reference Range Interpretation Comments POC-GLUCOSE METER 133 mg/dL 70-110 H : TESTED A T [facility] 6720 (BEAKER) (test code [facility], = 1538) 90299: Surveyor Oil Well Directional/Techni socrates ID = [id number] for LATT IMORE - CARA, BRODERICK POCT-GLUCOSE [id number] 08:50:00 Test Item Value Reference Range Interpretation Comments POC-GLUCOSE METER 122 mg/dL 70-110 H : TESTED A T [facility] 6720 (BEAKER) (test code [facility], = 1538) 73893: Surveyor Oil Well Directional/Techni socrates ID = [id number] for LATT IMORE - CARA, BRODERICK CBC W/PLT COUNT & AUTO [id number] 05:50:43 Test Item Value Reference Range Interpretation [...] 0.00-1.00 PERCENT (BEAKER) (test code = 2801) [id number] 05:40:36 Test Item Value Reference Range Interpretation Comments PHOSPHORUS (BEAKER) 3.8 mg/dL 2.3-4.7 Specimen moderately (test code = 604) hemolyzed Surveyor [employer] Well Directional ID - AAHAMIDBASIC METABOLIC [id number] 05:40:36 Test Item Value Reference Range Interpretation [...] not appl icable for dialysis patien ts Surveyor [employer] Well Directional ID - [id number] 05:40:35 Test Item Value Reference Range Interpretation Comments MAGNESIUM (BEAKER) 2.2 mg/dL 1.6-2.6 Specimen moderately (test code = 627) hemolyzed Surveyor Oil Well Directional ID - AAHAMIDPOCT-GLUCOSE [id number] 00:20:31 Test Item Value Reference Range Interpretation Comments POC-GLUCOSE METER 136 mg/dL 70-110 H : TESTED A T [facility] 6720 (JobinasecondAKER) (test code = [facility], 153) 01966: Surveyor Oil Well Directional/Techni socrates ID = [id number] for Gr ay (contract), Sha iliana POCT-GLUCOSE [id number] 16:54:24 Test Item Value Reference Range Interpretation Comments POC-GLUCOSE METER 160 mg/dL 70-110 H : TESTED A T [facility] 6720 (BEAKER) (test code = [facility] [employer] [facility], 1538) 90673: Surveyor Oil Well Directional/Techni socrates ID = [id number] for Co ok, Sridevi POCT-GLUCOSE [id number] 15:00:16 Test Item Value Reference Range Interpretation Comments POC-GLUCOSE METER 169 mg/dL 70-110 H : TESTED A T [facility] 6720 (BEAKER) (test code = KAREN Ramsey [facility], 1538) 34250: Surveyor Oil Well Directional/Techni socrates ID = [id number] for Iam macias (contract), Roberto th HEMOGLOBIN [id number] 08:42:39 Test Item Value Reference Range Interpretation Comments HEMOGLOBIN A1C 6.8 % See_Comment H [Automated m essage] ELECTROPHORESIS (BEAKER) The system which (test code = 3811) generated this result transmitted ref erence range: <=5.6%. The reference range was not used to int erpret this result as normal/abnormal . "The A1c is measured using a [facility]-certified method. HbA1c value equal to or greater than 6.5% as thediagnosis cutoff for diabetes. An HbA1c value of 5.7- 6.4% indicates increased risk for diabetes (prediabetes)."Surveyor Oil Well Directional ID - ADM [id number] 04:27:27 Test Item Value Reference Range Interpretation Comments MAGNESIUM (BEAKER) 2.1 mg/dL 1.6-2.6 Specimen slightly (test code = 627) hemolyzed Surveyor Oil Well Directional ID - [id number] 04:27:27 Test Item Value Reference Range Interpretation Comments PHOSPHORUS (BEAKER) 3.0 mg/dL 2.3-4.7 Specimen slightly (test code = 604) hemolyzed Surveyor Oil Well Directional ID - MARCOBASIC METABOLIC [id number] 04:27:27 Test Item Value Reference Range Interpretation [...] eGF R is based on the CKD-EPI 1 equation that d oes not use a race coefficientEsti mated GFR is not as accur ate as Creatinine Dominique cassandra in predicting glom erular filtration rate . Estimated GFR is not appl icable for dialysis patien ts Surveyor Oil Well Directional ID - MARCOCBC W/PLT COUNT & AUTO [id number] 04:02:29 Test Item Value Reference Range Interpretation [...] PERCENT (BEAKER) (test code = 2801) POCT-GLUCOSE [id number] 00:54:42 Test Item Value Reference Range Interpretation Comments POC-GLUCOSE METER 196 mg/dL 70-110 H : TESTED A T [facility] 6720 ([facility]) (test code = [facility], 153) 99463: Surveyor Oil Well Directional/Techni socrates ID = [id number] for JAY BAILEY HIGH SENSITIVITY TROPONIN [id number] 19:05:12 Test Item Value Reference Range Interpretation Comments HIGH SENSITIVITY TROPONIN I (test 43 pg/ml <=17 H code = 1515849) Surveyor Oil Well Directional ID - BSThe OPTOMETRIST ASSISTANT STAT High Sensitivity Troponin-I results should be used in conjunctionwith other diagnostic information such as ECG, clinical observations and information, and patient symptoms to aid in the diagnosis of TN.POCT-GLUCOSE [id number] 17:15:39 Test Item Value Reference Range Interpretation Comments POC-GLUCOSE METER 267 mg/dL 70-110 H : [facility] ([facility]) (test code = [facility], 153) 9[address]: Surveyor Oil Well Directional/Techni socrates ID = [id number] for Sridevi Flores POCT-GLUCOSE [id number] 12:13:16 Test Item Value Reference Range Interpretation Comments POC-GLUCOSE METER 257 mg/dL 70-110 H : Notified RN/MD: ([facility]) (test code = TESTED AT [place] [address] 153) [facility], [address]: Surveyor Oil Well Directional/Techni socrates ID = [id number] for LL OYD, TIKEYA TSH/FREE T4 IF [id number] 12:08:26 Test Item Value Reference Range Interpretation Comments THYROID STIMULATING HORMONE 0.911 uIU/mL 0.350-4.940 (BEAKER) (test code = 772) Surveyor [employer] Well Directional ID - MMHIGH SENSITIVITY TROPONIN [id number] 11:54:08 Test Item Value Reference Range Interpretation Comments HIGH SENSITIVITY TROPONIN I (test 68 pg/ml <=17 H code = 7791344) Surveyor [employer] Well Directional ID - MMThe OPTOMETRIST ASSISTANT STAT High Sensitivity Troponin-I results should be used in conjunctionwith other diagnostic information such as ECG, clinical observations and information, and patient symptoms to aid in the diagnosis of TN.CBC W/PLT COUNT & AUTO [id number] 11:19:14 Test Item Value Reference Range Interpretation [...] PERCENT (BEAKER) (test code = 2801) RESPIRATORY [id number] 11:14:11 Test Item Value Reference Range Interpretation [...] SEVERE ACUTE RESPIRATORY Not detected Not detected, [id number] Equivocal (test code = 1444000) BORDETELLA PARAPERTUSSIS Not detected Not detected, (BKR) (test code = 2373903) Equivocal Other viruses and bacteria not targeted by this PCR panel cannot be excluded; therefore clinical correlation and follow up of serology, culture results, and other molecular studies is required. The results are not intended to be used as the sole means for clinical diagnosis or patient management decisions. This sample was tested at the [facility] using the PreDx CorpArray Respiratory Panel. It is FDA cleared and has been verified and approved by the [facility] for clinical use on nasopharyngeal swab specimens.The performance of the FilmArrayRP has not been established in individuals who received influenza vaccine. Recent administration of a nasal influenza vaccine may cause false positive results for Influenza A and/orInfluenza B.[id number] 10:49:18 Test Item Value Reference Range Interpretation Comments PROCALCITONIN (BEAKER) (test code = < ng/mL <0.05 3036) SEPSIS RISK (ng/mL)Low: 0.05-0.50Intermediate: 0.51-2.00High: >=2.01HIGH SENSITIVITY TROPONIN [id number] 10:36:58 Test Item Value Reference Range Interpretation Comments HIGH SENSITIVITY TROPONIN I (test 69 pg/ml <=17 H code = 6564231) Surveyor [employer] Well Directional ID - MMThe OPTOMETRIST ASSISTANT STAT High Sensitivity Troponin-I results should be used in conjunctionwith other diagnostic information such as ECG, clinical observations and information, and patient symptoms to aid in the diagnosis of TN.B-TYPE NATRIURETIC FACTOR (BNP)2022-05-28 10:36:39 Test Item Value Reference Range Interpretation Comments B-TYPE NATRIURETIC PEPTIDE (BEAKER) 367 pg/mL 0-100 H (test code = 700) Surveyor [employer] Well Directional ID - [id number] 09:16:13 Test Item Value Reference Range Interpretation Comments PHOSPHORUS (BEAKER) (test code = 3.0 mg/dL 2.3-4.7 604) Surveyor [employer] Well Directional ID - MMCOMPREHENSIVE METABOLIC [id number] 09:16:12 Test Item Value Reference Range Interpretation [...] 6-55 (BEAKER) (test code = 347) EGFR (BEAKER) 84 Interpretatio n of eGFR (test code [...] not appl icable for dialysis patien ts Surveyor [employer] Well Directional ID - [id number] 09:16:12 Test Item Value Reference Range Interpretation Comments MAGNESIUM (BEAKER) (test code = 2.0 mg/dL 1.6-2.6 627) Surveyor [employer] Well Directional ID - MMRAD, CHEST, 1 VIEW, NON [id number] 09:03:00Reason for exam:- >shortness of breathShould this be performed at the bedside?->Yes [facility] 1935 Sex: FFINAL REPORT [...] may represent pulmonary edema or pneumonitis.Signed: Karen [place] Verified Date/Time: 05/28/2022 09:03:39 LACTIC ACID, [id number] 08:50:45 Test Item Value Reference Range Interpretation Comments LACTATE BLOOD VENOUS 3.84 mmol/L 0.50-2.00 H Specime n moderately (2) (BEAKER) (test hemolyzed code = 2872) Surveyor [employer] Well Directional ID - [id number] 08:47:24 Test Item Value Reference Range Interpretation Comments FIBRINOGEN LEVEL (BEAKER) (test 207 mg/dl 225-434 L code = 658) PROTHROMBIN TIME/[id number] 08:47:03 Test Item Value Reference Range Interpretation Comments PROTIME (BEAKER) (test code = 14.1 seconds 11.9-14.2 759) INR (BEAKER) (test code = 370) 1.11 <=5.90 RECOMMENDED COUMADIN/WARFARIN INR THERAPY RANGESSTANDARD DOSE: 2.0 - 3.0 Includes: PROPHYLAXIS for venous thrombosis, systemic embolization; TREATMENT for venous thrombosis and/or pulmonary embolus.HIGH RISK: Target INR is 2.5-3.5 for patients with mechanical heart valves.BLOOD GAS, [id number] 08:43:53 Test Item Value Reference Range Interpretation [...] (test code = 1819) 40.0 CBC WITH [id number] 00:09:18 Test Item Value Reference Range Interpretation Comments WBC (test code = See_Comment [Automated 8690-2) message] The sy stem which generated this [...] RDW-SD (test code = 45.1 fL 39.0-49.9 02949-2) RDW-CV (test code = 15.3 % 12.0-15.5 788-0) PLT (test code = See_Comment [Automated 777-3) message] The sy stem which generated this result transmitted reference range : 166 - 358 10*3/ ?L. The reference r nanci was not used to interpret this result as normal/abnormal . MPV (test code = 11.4 fL 9.5-12.9 53736-3) NRBC/100 WBC (test See_Comment [Automat ed code = 6299404718) message] The system which generated this result transmitted reference range : 0.0 - 10.0 /100 WBCs. The refer ence range was not u sed to interpret th is result as normal/abnormal . NRBC x10^3 (test code See_Comment [Auto mated = 1825892226) message] The s ystem which generated this result transmitted reference range : 10*3/?L. The reference range was not used to interpret this result as normal/abnormal . GRAN MAT (NEUT) % 57.0 % (test code = 770-8) IMM GRAN % (test code 0.30 % = 7863300782) LYMPH % (test code = 32.1 % 736-9) MONO % (test code = 7.8 % 5905-5) EOS % (test code = 2.5 % 713-8) BASO % (test code = 0.3 % 706-2) GRAN MAT x10^3(ANC) 4.26 10*3/uL 1.88-7.09 (test code = 4681612256) IMM GRAN x10^3 (test 0.00-0.06 code = 5932033470) LYMPH x10^3 (test code 2.40 10*3/uL 1.32-3.29 = 731-0) MONO x10^3 (test code 0.58 10*3/uL 0.33-0.92 = 742-7) EOS x10^3 (test code = 0.19 10*3/uL 0.03-0.39 711-2) BASO x10^3 (test code 0.01-0.07 = 704-7) Lab Interpretation Abnormal (test code = 28742-2) [facility] WITH [id number] 00:09:18 Test Item Value Reference Range Interpretation Comments WBC (test code = 7.47 See_Comment [Automated 6690-2) message] The sy stem which generated this result transmitted reference range : 4.30 - 11.10 10*3/?L. The reference range was not used to interpret this result as normal/abnormal . RBC (test code = 4.42 See_Comment [Automated 109-8) message] The sy stem which generated this [...] RDW-SD (test code = 45.1 fL 39.0-49.9 19320-6) RDW-CV (test code = 15.3 % 12.0-15.5 788-0) PLT (test code = 332 See_Comment [Automated 777-3) message] The sy stem which generated this result transmitted reference range : 166 - 358 10*3/ ?L. The reference r nanci was not used to interpret this result as normal/abnormal . MPV (test code = 11.4 fL 9.5-12.9 47100-4) NRBC/100 WBC (test 0.0 See_Comment [Automat ed code = 8759369017) message] The system which generated this result transmitted reference range : 0.0 - 10.0 /100 WBCs. The refer ence range was not u sed to interpret th is result as normal/abnormal . NRBC x10^3 (test code See_Comment [Auto mated = 3579651402) message] The s ystem which generated this result transmitted reference range : 10*3/?L. The reference range was not used to interpret this result as normal/abnormal . GRAN MAT (NEUT) % 57.0 % (test code = 770-8) IMM GRAN % (test code 0.30 % = 9184615079) LYMPH % (test code = 32.1 % 736-9) MONO % (test code = 7.8 % 5905-5) EOS % (test code = 2.5 % 713-8) BASO % (test code = 0.3 % 706-2) GRAN MAT x10^3(ANC) 4.26 10*3/uL 1.88-7.09 (test code = 0466705438) IMM GRAN x10^3 (test 0.00-0.06 code = 2808425201) LYMPH x10^3 (test code 2.40 10*3/uL 1.32-3.29 = 731-0) MONO x10^3 (test code 0.58 10*3/uL 0.33-0.92 = 742-7) EOS x10^3 (test code = 0.19 10*3/uL 0.03-0.39 711-2) BASO x10^3 (test code 0.01-0.07 = 704-7) Lab Interpretation Abnormal (test code = 30741-7) [facility] WITH [id number] 00:09:18 Test Item Value Reference Range Interpretation [...] RDW-SD (test code = 45.1 fL 39.0-49.9 46516-3) RDW-CV (test code = 15.3 % 12.0-15.5 788-0) PLT (test code = 332 See_Comment [Automated 777-3) message] The sy stem which generated this result transmitted reference range : 166 - 358 10*3/ ?L. The reference r nanci was not used to interpret this result as normal/abnormal . MPV (test code = 11.4 fL 9.5-12.9 18369-8) NRBC/100 WBC (test 0.0 See_Comment [Automat ed code = [id number]) message] The system which generated this result transmitted reference range : 0.0 - 10.0 /100 WBCs. The refer ence range was not u sed to interpret th is result as normal/abnormal . NRBC x10^3 (test code See_Comment [Auto mated = [id number]) message] The s ystem which generated this result transmitted reference range : 10*3/?L. The reference range was not used to interpret this result as normal/abnormal . GRAN MAT (NEUT) % 57.0 % (test code = 770-8) IMM GRAN % (test code 0.30 % = 3237887411) LYMPH % (test code = 32.1 % 736-9) MONO % (test code = 7.8 % 5905-5) EOS % (test code = 2.5 % 713-8) BASO % (test code = 0.3 % 706-2) GRAN MAT x10^3(ANC) 4.26 10*3/uL 1.88-7.09 (test code = 0507934657) IMM GRAN x10^3 (test 0.00-0.06 code = 7306390506) LYMPH x10^3 (test code 2.40 10*3/uL 1.32-3.29 = 731-0) MONO x10^3 (test code 0.58 10*3/uL 0.33-0.92 = 742-7) EOS x10^3 (test code = 0.19 10*3/uL 0.03-0.39 711-2) BASO x10^3 (test code 0.01-0.07 = 704-7) Lab Interpretation Abnormal (test code = 27502-0) [facility] [id number] 09:29:42 Test Item Value Reference Range Interpretation Comments THYROID STIMULATING See_Comment Normal TSH level HORMONE (test code = [place] [address]-9) clinically stab le patient without hypothalamic-pi tuitary-th yroid axis diso rders and no apparent th yroid dysfunction. No reflex testing require d. Unless Otherwise Indic ated, All Testing Perform ed At: Clinical Pathol ogy [facility], [address] [place] [address] Laboratory Dire ctor: Breonna Ball. CLIA Number [id number] Cap Accreditation [place] o. [id number] [Autom ated message] The sy stem which generated this result transmitted ref erence range: 0.400 - 4.100 UIU/ML. The ref erence range was not u sed to interpret this result as normal/abnormal . [facility] [id number] 08:36:24 Test Item Value Reference Range Interpretation Comments HEMOGLOBIN A1C (test 6.6 % 4.2-5.6 H AMERIC AN DIABETES code = 4548-4) KENYATTA SYLVESTER FOR HGB A1C: PREDIABETES/INC REASED RISK . [...] e Indicated, All Testing Performed At: [facility] Pathology [facility], [address] [place] [address], [place] [address] [place] [address] Director: Tani Vazquez M.D. IA Number [id number] Cap Accreditation [place] o. [id number] Lab Interpretation Abnormal (test code = 62173-3) [facility] [id number] 08:11:36 Test Item Value Reference Range Interpretation Comments GLUCOSE (test code = See_Comment H [Autom ated message] 2345-7) The system [employer] generated this result transmitted ref erence range: [...] L [Au tomated message] 2160-0) The system [employer] generated this result transmitted ref erence range: 0.60 - 1 .30 MG/DL. The refe rence range was not u sed to interpret this result as normal/abnor mal. EGFR (test code = See_Comment [Automate d message] 81715-1) The system [employer] generated this result transmitted ref erence range: >60 ML/MIN/1.73. Th e reference range was not used to int erpret this result as normal/abnormal . BUN/CREAT RATIO (test See_Comment [Auto mated message] code = 3097-3) The system [employer] generated this result transmitted ref erence range: 6 - 28 R ATIO. The reference r nanci was not used to interpret this result as normal/abnor mal. SODIUM (test code = See_Comment [Automa kendrick message] 2951-2) The system [employer] generated this result transmitted ref erence range: 133 - 14 6 MEQ/L. The refe rence range was not u sed to interpret this result as normal/abnor mal. POTASSIUM (test code = See_Comment [Aut omated message] 2823-3) The system [employer] generated this result transmitted ref erence range: 3.5 - 5. 4 MEQ/L. The refe rence range was not u sed to interpret this result as normal/abnor mal. CHLORIDE (test code = See_Comment [Auto mated message] 2075-0) The system [employer] generated this result transmitted ref erence range: 95 - 107 MEQ/L. The reference r nanci was not used to interpret this result as normal/abnor mal. CO2 (test code = See_Comment [Automated message] 1963-8) The system [employer] generated this result transmitted ref erence range: 19 - 31 MEQ/L. The reference r nanci was not used to interpret this result as normal/abnor mal. CALCIUM (test code = See_Comment [Autom ated message] 60659-5) The system [employer] generated this result transmitted ref erence range: 8.5 - 10 .5 MG/DL. The refe rence range was not u sed to interpret this result as normal/abnor mal. PROTEIN TOTAL (test See_Comment [Automa kendrick message] code = 2885-2) The system [employer] generated this result transmitted ref erence range: 6.1 - 8. 3 G/DL. The reference r nanci was not used to interpret this result as normal/abnor mal. ALBUMIN (test code = See_Comment [Autom ated message] 18680-9) The system [employer] generated this result transmitted ref erence range: 3.5 - 5. 2 G/DL. The reference r nanci was not used to interpret this result as normal/abnor mal. GLOBULINS, SERUM, TOTAL See_Comment [Au tomated message] (test code = 90437-1) The sy stem which generated this result transmitted ref erence range: 1.9 - 3. 7 G/DL. The reference r nanci was not used to interpret this result as normal/abnor mal. A/G RATIO (test code = See_Comment [Aut omated message] 1759-0) The system [facility] h generated this result transmitted ref erence [...] 1744-2) Indicated, All Testing Performed At: [facility], [address] [place] [address] Laborator y Director: Tani Vazquez M.D. IA Number [id number] [place]. 8[address]-89 Lab Interpretation Abnormal (test code = 61977-3) [facility] W/AUTO DIFF WITH [id number] 07:12:50 Test Item Value Reference Range Interpretation Comments WHITE BLOOD CELL COUNT See_Comment [Aut omated message] (test code = 71981-1) The sy stem which generated this result transmitted ref erence range: 3.5 - 11 .0 K/UL. The refer ence range was not u sed to interpret this result as normal/abnor mal. RED BLOOD CELL COUNT See_Comment [Autom ated message] (test code = 32313-8) The sy stem which generated this result [...] HEMATOCRIT (test code = 38.5 % 34.0-45.0 66422-6) MEAN CORPUSCULAR VOLUME 84.4 fL 80.0-99.0 (test code = 06678-0) MEAN CORPUSCULAR 28.1 PG 25.0-33.0 HEMOGLOBIN (test code = 67925-4) MEAN CORPUSCULAR See_Comment [Automated message] HEMOGLOBIN CONC (test The sy stem which code = 55655-3) generated th is result transmitted ref erence range: 31.0 - 3 6.0 G/DL. The refer ence range was not u sed to interpret this result as normal/abnor mal. RED CELL DISTRIBUTION 13.0 % 11.5-15.0 WIDTH (test code = 99090-0) NEUTROPHILS % (test code 60.3 % = 38272-9) LYMPHOCYTES % (test code 29.6 % = 70583-0) MONOCYTES % (test code = 6.9 % 46290-6) EOSINOPHILS % (test code 2.7 % = 74652-1) BASOPHILS % (test code = 0.4 % 92105-6) IMMATURE GRANULOCYTES 0.1 % (test code = 39313-0) NUCLEATED RBC'S See_Comment Unless Othe rwise MYELOPEROX STAIN (test Indic ated, All Testing code = 90589-2) Performed At : [facility], [address] [place] [address] Laborator y Director: Konstantin Ball Number [id number] Cap Accreditation [place] o. 87[address]-59 [Autom ated message] The sy stem which generated this result transmit kendrick reference range : 0.00 - 0.11 K/UL. Th e reference range was not used to int erpret this result as normal/abnormal . PLATELET COUNT (test See_Comment [Autom ated message] code = 44142-4) The system [facility] generated this result transmitted ref erence range: 130 - 40 0 K/UL. The reference r nanci was not used to interpret this result as normal/abnor mal. NEUTROPHILS ABSOLUTE See_Comment [Autom ated message] COUNT (test code = The syste m which 99173-7) generated this result transmitted ref erence range: 1.50 - 7 .50 K/UL. The refer ence range was not u sed to interpret this result as normal/abnor mal. LYMPHOCYTES ABSOLUTE See_Comment [Autom ated message] COUNT (test code = The syste m which 74836-5) generated this result transmitted ref erence range: 1.00 - 4 .00 K/UL. The refer ence range was not u sed to interpret this result as normal/abnor mal. MONOCYTES ABSOLUTE COUNT See_Comment [A utomated message] (test code = 79624-1) The sy stem which generated this result transmitted ref erence range: 0.20 - 1 .00 K/UL. The refer ence range was not u sed to interpret this result as normal/abnor mal. BASOPHILS ABSOLUTE COUNT See_Comment [A utomated message] (test code = 79784-0) The sy stem which generated this result [...] to interpret this result as normal/abnor mal. [facility] [id number] 00:00:00 Test Item Value Reference Range Interpretation Comments COLOR UA (test code = 5778-6) Yellow YELLOW/STRAW CLARITY UA (test code = 95682-6) Clear CLEAR GLUCOSE UA (test code = 5792-7) Negative NEGATIVE BILIRUBIN UA (test code = 5770-3) Negative NEGATIVE KETONES UA (test code = 02028-9) Negative NEGATIVE SPECIFIC GRAVITY UA (test code [...] NEGATIVE REDUCING SUBSTANCES URINE (test code = 38530-8) [facility]. METABOLIC PANEL (40219)2021-09-03 20:37:56 Test Item Value Reference Range Interpretation Comments NA (test code = 138 mmol/L 135-145 3805916034) K (test code = 4.4 mmol/L 3.5-5.0 7410741793) CL (test code = 99 mmol/L 98-108 4761342206) CO2 TOTAL (test code = 28 mmol/L 23-31 3565340324) AGAP (test code = 11 2-16 8157665325) BUN (test code = 18 mg/dL 7-23 9379156819) GLUCOSE (test code = 122 mg/dL 70-110 H 9688906583) CREATININE (test code = 0.59 mg/dL 0.50-1.04 2948712898) TOTAL BILI (test code = 0.5 mg/dL 0.1-1.0 8899302544) CALCIUM (test code = 9.0 mg/dL 8.6-10.6 0070739670) T PROTEIN (test code = 6.6 g/dL 6.3-8.2 9421212428) ALBUMIN (test code = 4.1 g/dL 3.5-5.0 1171748045) ALK PHOS (test code = 91 U/L 34-122 5393003159) ALTv (test code = 21 U/L 5-35 1742-6) AST(SGOT) (test code = 27 U/L 13-40 2742519404) eGFR (test code = 96.9 mL/min/1.73m2 2962277266) ALEXIS (test code = ALEXIS) Association of [...] tests). Lab Interpretation Abnormal (test code = 04723-3) [facility] 20:37:36 Test Item Value Reference Range Interpretation Comments LIPASE (test code = 9895349382) 184 U/L 0-220 Lab Interpretation (test code = Normal 01693-8) [facility] WITH [id number] 19:27:42 Test Item Value Reference Range Interpretation Comments WBC (test code = 8.34 See_Comment [Automated 3889-2) message] The sy stem which generated this result transmitted reference range : 4.30 - 11.10 10*3/?L. The reference range was not used to interpret this result as normal/abnormal . RBC (test code = 4.38 See_Comment [Automated 502-9) message] The sy stem which generated this [...] RDW-SD (test code = 48.8 fL 39.0-49.9 60397-4) RDW-CV (test code = 15.2 % 12.0-15.5 788-0) PLT (test code = 291 See_Comment [Automated 777-3) message] The sy stem which generated this result transmitted reference range : 166 - 358 10*3/ ?L. The reference r nanci was not used to interpret this result as normal/abnormal . MPV (test code = 11.2 fL 9.5-12.9 55190-2) NRBC/100 WBC (test 0.0 See_Comment [Automat ed code = 4513264625) message] The system which generated this result transmitted reference range : 0.0 - 10.0 /100 WBCs. The refer ence range was not u sed to interpret th is result as normal/abnormal . NRBC x10^3 (test code See_Comment [Auto mated = 2090509765) message] The s ystem which generated this result transmitted reference range : 10*3/?L. The reference range was not used to interpret this result as normal/abnormal . GRAN MAT (NEUT) % 60.5 % (test code = 770-8) IMM GRAN % (test code 0.40 % = 5185803974) LYMPH % (test code = 27.5 % 736-9) MONO % (test code = 8.3 % 5905-5) EOS % (test code = 2.9 % 713-8) BASO % (test code = 0.4 % 706-2) GRAN MAT x10^3(ANC) 5.06 10*3/uL 1.88-7.09 (test code = 9519661121) IMM GRAN x10^3 (test 0.03 10*3/uL 0.00-0.06 code = 8633122255) LYMPH x10^3 (test code 2.29 10*3/uL 1.32-3.29 = 731-0) MONO x10^3 (test code 0.69 10*3/uL 0.33-0.92 = 742-7) EOS x10^3 (test code = 0.24 10*3/uL 0.03-0.39 711-2) BASO x10^3 (test code 0.03 10*3/uL 0.01-0.07 = 704-7) Lab Interpretation Abnormal (test code = 50276-9) [facility] [id number] 00:00:00 Test Item Value Reference Range Interpretation Comments COLOR UA (test code = 5778-6) Yellow YELLOW/STRAW CLARITY UA (test code = Clear CLEAR 02624-6) GLUCOSE UA (test code = Negative NEGATIVE 5792-7) BILIRUBIN UA (test code = Negative NEGATIVE 5770-3) KETONES UA (test code = Negative NEGATIVE 22805-5) SPECIFIC GRAVITY UA (test 1.005-1.035 A code [...] REDUCING SUBSTANCES URINE NEGATIVE (test code = 93857-4) Lab Interpretation (test code Abnormal = 87071-7) [facility] [id number] 00:00:00 Test Item Value Reference Range Interpretation Comments COLOR UA (test code = 5778-6) Light Yellow YELLOW/STRAW CLARITY UA (test code = Cloudy CLEAR 72602-1) GLUCOSE UA (test code = Negative NEGATIVE 5792-7) BILIRUBIN UA (test code = Negative NEGATIVE 5770-3) KETONES UA (test code = Negative NEGATIVE 62334-6) SPECIFIC GRAVITY UA (test 1.005-1.035 code = [...] 5802-4) REDUCING SUBSTANCES URINE (test code = 72008-2) [id number] 11:28:02 Test Item Value Reference Range Interpretation Comments MAGNESIUM (test code = See_Comment Unle ss Otherwise 27594-7) Indicated, All Testing Performed At: C linical Pathology [facility], [address] [place] [address] Laborator y Director: Tani Vazquez M.D. CLIA Number [id number] Cap Accreditation N o. 76962-54 [Autom ated message] The sy stem which generated this result transmitted ref erence range: 1.6 - 2. 6 MG/DL. The reference r nanci was not used to int erpret this result as normal/abnormal . [facility] [id number] 08:53:12 Test Item Value Reference Range Interpretation Comments GLUCOSE (test code = See_Comment H [Autom ated message] 2345-7) The system [employer] generated this result transmitted ref erence range: [...] L [Au tomated message] 2160-0) The system [employer] generated this result transmitted ref erence range: 0.60 - 1 .30 MG/DL. The refe rence range was not u sed to interpret this result as normal/abnor mal. EGFR AA (test code = See_Comment [Autom ated message] 26847-4) The system [employer] generated this result transmitted ref erence range: >60 ML/MIN/1.73. Th e reference range was not used to int erpret this result as normal/abnormal . EGFR (test code = See_Comment [Automate d message] 54051-1) The system [employer] generated this result transmitted ref erence range: >60 ML/MIN/1.73. Th e reference range was not used to int erpret this result as normal/abnormal . SODIUM (test code = See_Comment [Automa kendrick message] 2951-2) The system [employer] generated this result transmitted ref erence range: 133 - 14 6 MEQ/L. The refe rence range was not u sed to interpret this result as normal/abnor mal. POTASSIUM (test code = See_Comment [Aut omated message] 2823-3) The system [employer] generated this result transmitted ref erence range: 3.5 - 5. 4 MEQ/L. The refe rence range was not u sed to interpret this result as normal/abnor mal. CHLORIDE (test code = See_Comment [Auto mated message] 2075-0) The system [employer] generated this result transmitted ref erence range: 95 - 107 MEQ/L. The refe rence range was not u sed to interpret this result as normal/abnor mal. CO2 (test code = 1963-8) See_Comment [A utomated message] The system [employer] generated this result transmitted ref erence range: 19 - 31 MEQ/L. The reference r nanci was not used to interpret this result as normal/abnor mal. CALCIUM (test code = See_Comment Unles s Otherwise 40297-4) Indicated, All Testing Perform ed At: Clinical Pathol [facility], [address] [place] [address] Laborator y Director: Tani Vazquez M.D. IA Number [id number] Cap Accreditation [place] o. 68978-72 [Autom ated message] The sy stem which generated this result transmit kendrick reference range : 8.5 - 10.5 MG/DL. T he reference range was not used to int erpret this result as normal/abnormal . Lab Interpretation (test Abnormal code = 61271-4) [facility] [id number] 08:53:12 Test Item Value Reference Range Interpretation Comments URIC ACID (test code See_Comment Unless Otherwise = 1630595) Indicated, All Testing Performed At: [facility] [address] [place] [address] Laborator y Director: Tani rogers M.D. IA Number [id number] Cap Accreditation [place] o. 93210-84 [Automated mess age] The system which ge nerated this result transmit kendrick reference range : 2.7 - 6.1 MG/DL. The refe rence range was not used to interpret this result as normal/abnormal . [facility]apiFL, FLUORO, NON-SPECIFIC, UP TO 1 [id number] 09:44:00Reason for exam:->cystoFINAL REPORT A fluoroscopic unit was utilized for a procedure performed in the operating room. No interpretation was requested. Please refer to the operative report regarding findings. Please refer to PACS for patient radiation dose information. Signed: JR Johnson Robert MDReport Verified Date/Time: 07/14/2019 09:44:15 Reading Location: [address] Neuro Reading Room BLOOD [id number] 11:00:00 Test Item Value Reference Range Interpretation Comments CULTURE (BEAKER) (test No growth in 5 days code = 1095) BLOOD [id number] 11:00:00 Test Item Value Reference Range Interpretation Comments CULTURE (BEAKER) (test No growth in 5 days code = 1095) URINE [id number] 11:07:00 Test Item Value Reference Range Interpretation Comments CULTURE (BEAKER) (test code = 1095) No growth ANG, NEPHROSTOMY, PERC, EXTERNAL [id number] 11:00:00Reason for exam:- >request left PCN for left obstructing stone, feversFINAL REPORT Procedure: Percutaneous nephrostomy catheter placement. History: Left ureteric calculus with obstruction, infection. Wiping Cloth Cutter: Bradford Matthew M.D. [employer] Checkout Technician: Not Konstantin mckeon Modality: Ultrasound and fluoroscopy. [...] local infiltration Medicines: Not applicable Contrast medium: Nsisjz839, 15 cc. Estimated blood loss: < 5 [...] anesthesia and dermatotomy, under real-time ultrasonographic guidance, d27-ydzey Chiba needle was advanced into the calyx. After confirming the recovery of urine, a guidewire was advanced into the collecting system under fluoroscopic guidance. Contrast injection confirmed satisfactory position of the access system. Over the wire, following sequential dilatation of the tract, an 8.5 Kyrgyz nephrostomy catheter was placed, pigtail locked in [...] bladder. Impression:Successful ultrasound and fluoroscopic guided 8.5 Kyrgyz nephrostomy catheter placement left kidney via a posterior inferior calyx as described above. Further management dictated by the clinical scenario. The nephrostomy catheter(s) should be exchanged at the latest in three months. Thank you for the opportunity to assist in the care of your patient. Signed: Bradford Matthew MDReport Verified Date/Time: 07/10/2019 11:00:12 Reading Location: [place] [address] Angio Body Reading Room BASIC METABOLIC [id number] 07:33:00 Test Item Value Reference Range Interpretation [...] 1092) DATA TO CALCULA TE ESTIMATED GFR. [employer] ID - MONIE [id number] 07:25:00 Test Item Value Reference Range Interpretation Comments MAGNESIUM (BEAKER) (test code = 2.2 mg/dL 1.6-2.6 627) [employer] ID - MONIE CHEPATIC FUNCTION [id number] 07:25:00 Test Item Value Reference Range Interpretation [...] (test code = 43 U/L 6-55 347) [employer] ID - MONIE CCBC W/PLT COUNT & AUTO [id number] 06:54:00 Test Item Value Reference Range Interpretation [...] (BEAKER) (test code = 2801) BASIC METABOLIC [id number] 05:38:00 Test Item Value Reference Range Interpretation [...] 1092) DATA TO CALCULA TE ESTIMATED GFR. [employer] ID - [id number] 05:24:00 Test Item Value Reference Range Interpretation Comments MAGNESIUM (BEAKER) (test code = 1.8 mg/dL 1.6-2.6 627) [employer] ID - LAHEPATIC FUNCTION [id number] 05:24:00 Test Item Value Reference Range Interpretation [...] (test code = 36 U/L 6-55 347) [employer] ID - LACBC W/PLT COUNT & AUTO [id number] 04:34:00 Test Item Value Reference Range Interpretation [...] (BEAKER) (test code = 2801) LACTIC ACID, [id number] 20:25:00 Test Item Value Reference Range Interpretation Comments LACTATE BLOOD VENOUS (2) (BEAKER) 0.69 mmol/L 0.50-2.20 (test code = 2872) [employer] ID - NTPRAD, CHEST, 1 VIEW, NON [id number] 16:24:00Reason for exam:->feverShould this be performed at the bedside?->YesFINAL REPORT CLINICAL HISTORY: fever TECHNIQUE: 1 view of the chest. COMPARISON: None IMPRESSION: There is possible retrocardiac left lower lobe consolidation, for which clinical correlation for pneumonia is requested. There is blunting of the left costophrenic angle. The heart isnot enlarged. Signed: Rich Rebolledo MDReport Verified Date/Time: 07/08/2019 16:24:52 Reading Location: [address] Neuro Reading Room HEMOGLOBIN [id number] 13:56:00 Test Item Value Reference Range Interpretation Comments HEMOGLOBIN A1C (BEAKER) (test code = 6.1 % 4.3-6.1 368) URINALYSIS W/ REFLEX URINE [id number] 13:15:00 Test Item Value Reference Range Interpretation [...] = 516) SOURCE(BEAKER) (test code = 2795) [employer] ID - [auto][employer] ID - techRESPIRATORY PANEL [id number] 12:14:00 Test Item Value Reference Range Interpretation [...] decisions. This sample was tested at the [facility] using the Pre[employer] Corp[employer] Respiratory Panel. It is FDA cleared and has been verified and approved by the [facility] for clinical use on nasopharyngeal swab specimens.The performance of the FilmArrayRP has not been established in individuals who received influenza vaccine. Recent administration of a nasal influenza vaccine may cause false positive results for Influenza A and/orInfluenza B.SARS-COV2/RT-PCR ([facility])2019-07-08 11:26:00 Test Item Value Reference Range Interpretation Comments SARS-COV2/RT-PCR (test Not Detected Not Detected, Negative code = 5847853) SARS-COV-2 PERFORMING LAB [facility] (test code = 9178153) Negative results do not preclude SARS-CoV-2 infection [...] of the Act.Fact Sheet for Healthcare Pro viders:https://www.[employer]/Documents/Xpert%20Xpress%20SARS%20CoV-2/Fact%20Sh eets/302-3802%24DGZV-TMD-9%20HEALTHCARE%20PROVIDERS%20FACT%20SHEET.pdfFact Sheet for Healthcare Patients:https://www.[employer]/Documents/Xpert%20Xpress%20SARS%20CoV-2/Fact%20Sheets/302-3801%20SARS-COV -2%20PATIENT%20FACT%20SHEET.pdfPerforming Laboratory:[facility] [facility] Hospitalliana [place], [place] [address]BHXBD METABOLIC [id number] 10:06:00 Test Item Value Reference Range Interpretation [...] 1092) DATA TO CALCULA TE ESTIMATED GFR. [employer] ID - [id number] 10:05:00 Test Item Value Reference Range Interpretation Comments MAGNESIUM (BEAKER) (test code = 2.0 mg/dL 1.6-2.6 627) [employer] ID - NTPHEPATIC FUNCTION [id number] 10:05:00 Test Item Value Reference Range Interpretation [...] (test code = 30 U/L 6-55 347) [employer] ID - [id number] 09:53:00 Test Item Value Reference Range Interpretation [...] 2.5-3.5 for patients wiht mechanical heart valves.PROTHROMBIN TIME/[id number] 09:51:00 Test Item Value Reference Range Interpretation [...] for patients wiht mechanical heart valves.LACTIC ACID, [id number] 09:50:00 Test Item Value Reference Range Interpretation Comments LACTATE BLOOD VENOUS (2) (BEAKER) 2.87 mmol/L 0.50-2.20 H (test code = 2872) [employer] D[employer] ID - [id number] W/PLT COUNT & AUTO [id number] 09:41:00 Test Item Value Reference Range Interpretation [...]
[2022-08-03 05:31] LABS: Absolute Lymphocytes (CBC) 2.5 K/uL (0.7-4.9); Hematocrit 35.1 % (36.0-45.0); Lymphocytes % 27.3 % (15.3-44.8); MCV 69.6 fL (80-100); MPV 7.7 fL (7.6-11.3); RBC Red Blood Cell Count 5.04 M/uL (3.86-4.86)
[2022-08-03 05:38] LABS: Protime INR 1.09
[2022-08-03 05:51] LABS: ALT/SGPT 16 U/L (13-56); AST/SGOT 15 U/L (15-37); Albumin 3.4 g/dL (3.4-5.0); Alkaline Phosphatase 97 U/L (45-117); BUN Blood Urea Nitrogen 12 mg/dL (7-18); Bicarbonate 31 mEq/L (21-32); Bilirubin Total 0.4 mg/dL (0.2-1.0); Glomerular Filtration Rate 86 ml/min (=/>90); Glucose Level 116 mg/dL (74-106); Magnesium 2.1 mg/dL (1.6-2.4); NT PRO-BNP 1306 pg/mL (<450); Potassium 3.3 mEq/L (3.5-5.1); Sodium Level 138 mEq/L (136-145); Troponin High Sensitivity 33.1 pg/mL (<58.9)
[2022-08-03 05:54] LABS: Bilirubin Direct < 0.1 mg/dL (0-0.2); Bilirubin Indirect, Calculated ND mg/dL (0.2-0.8)
[2022-08-03 07:21] LABS: Anisocytosis 1+; Blood Morphology Comment NOTED (NOT SEEN); Hypochromasia 1+; Platelet Estimate ADEQ; White Blood Cell Scan OK (OK)
[2022-08-03] MEDS ORDERED: FUROSEMIDE 40 MG/4 ML VIAL ONE (07:21)
--- NOTE | 2022-08-03 07:43 | RAD REPORT ---
EXAM DESCRIPTION: CT - Chest For Pe Angio - 08/03/2022 7:34 am CLINICAL HISTORY: Chest pain. DYSPNEA COMPARISON: Chest For Pe Angio dated 05/08/2022 TECHNIQUE: CT angiogram of the pulmonary arteries was performed with MIP. All CT scans are performed using dose optimization technique as appropriate and may include automated exposure control or mA/KV adjustment according to patient size. FINDINGS: No evidence of pulmonary thromboembolism. No acute aortic finding demonstrated. Mild diffuse ground-glass lung opacities suggests mild interstitial pulmonary edema. No significant pericardial or pleural fluid. No concerning bony finding. Cholecystectomy clips. IMPRESSION: No evidence of pulmonary thromboembolism. Mild interstitial pulmonary edema is present.
[2022-08-03] MEDS ORDERED: Acetylcysteine 6000mg/30mL IV ONE (07:58)
[2022-08-03] MEDS ORDERED: POTASSIUM 25 MEQ EFFERV TAB ONE (08:37)
--- NOTE | 2022-08-03 08:45 | EDPHYS ---
Physician Documentation [facility] Name: Erika Jacobson Age: 87 yrs Sex: Female : 1935 Arrival Date: 08/03/2022 Time: 04:42 Bed 7 Private MD: ED Physician Charly Guo HPI: 08/03 04:58 This 87 yrs old Female presents to ER via Unassigned with complaints of sp3 Breathing Difficulty. 05:07 This 87 yrs old Female presents to ER via Unassigned with complaints of sp3 Breathing Difficulty. 04:58 . sp3 05:07 87-year-old female with a history of CHF and asthma now presents to the ED with chief sp3 complaint difficulty breathing over the last 48 hours. Denies chest pain, abdominal pain, fever, cough, back pain, lower extremity edema, travel history, known sick contacts, changes in diet, changes in medication, or any other aspect of ROS at this time. Patient feels a little bit better now but states that on any exertion he gets significantly worse.. Historical: - Allergies: 05:11 No Known Allergies; jj7 - PMHx: 05:11 Asthma; Congestive heart failure; Hyperlipidemia; CVA; Hypertension; jj7 - PSHx: 05:11 choleycestectomy; kidney stones; hysterectomy; jj7 - Immunization history:: Adult Immunizations up to date, Client reports receiving the 2nd dose of the Covid vaccine. - Social history:: Smoking status: Patient denies any tobacco usage or history of. Patient/guardian denies using alcohol, street drugs. ROS: 05:08 Constitutional: Negative for fever, chills, and weight loss, Eyes: Negative for injury, sp3 pain, redness, and discharge, ENT: Negative for injury, pain, and discharge, Neck: Negative for injury, pain, and swelling, Cardiovascular: Negative for chest pain, palpitations, and edema, Abdomen/GI: Negative for abdominal pain, nausea, vomiting, diarrhea, and constipation, Back: Negative for injury and pain, MS/Extremity: Negative for injury and deformity, Skin: Negative for injury, rash, and discoloration, Neuro: Negative for headache, weakness, numbness, tingling, and seizure, Psych: Negative for depression, anxiety, suicide ideation, homicidal ideation, and hallucinations, Allergy/Immunology: Negative for hives, rash, and allergies. 05:08 All other systems are negative. Exam: 05:09 Constitutional: This is a well developed, well nourished patient who is awake, alert, sp3 and in no acute distress. Head/Face: Normocephalic, atraumatic. Eyes: Pupils equal round and reactive to light, extra-ocular motions intact. Lids and lashes normal. Conjunctiva and sclera are non-icteric and not injected. Cornea within normal limits. Periorbital areas with no swelling, redness, or edema. Neck: Trachea midline, no thyromegaly or masses palpated, and no cervical lymphadenopathy. Supple, full range of motion without nuchal rigidity, or vertebral point tenderness. No Meningismus. Chest/axilla: Normal chest wall appearance and motion. Nontender with no deformity. No lesions are appreciated. Cardiovascular: Regular rate and rhythm with a normal S1 and S2. No gallops, murmurs, or rubs. Normal PMI, no JVD. No pulse deficits. Abdomen/GI: Soft, non-tender, with normal bowel sounds. No distension or tympany. No guarding or rebound. No evidence of tenderness throughout. Back: No spinal tenderness. No costovertebral tenderness. Full range of motion. Skin: Warm, dry with normal turgor. Normal color with no rashes, no lesions, and no evidence of cellulitis. MS/ Extremity: Pulses equal, no cyanosis. Neurovascular intact. Full, normal range of motion. Neuro: Awake and alert, GCS 15, oriented to person, place, time, and situation. Cranial nerves II-XII grossly intact. Motor strength 5/5 in all extremities. Sensory grossly intact. Cerebellar exam normal. Normal gait. Psych: Awake, alert, with orientation to person, place and time. Behavior, mood, and affect are within normal limits. 05:09 Respiratory: Coarse breath sounds bilaterally with bibasilar Rales present. No peripheral significant edema noted.. 06:51 ECG was reviewed by the Attending Physician. EKG demonstrates normal sinus rhythm 72 sp3 bpm with incomplete left bundle branch block without discordance and nonspecific diffuse ST/T changes without evidence of ischemia. Vital Signs: 04:45 BP 150 / 79; Pulse 83; Resp 18; Temp 99.2; Pulse Ox 98% ; Weight 62.6 kg; Height 5 ft. jj7 3 in. ; 05:33 BP 140 / 48; Pulse 81; Resp 17 S; Pulse Ox 95% on R/A; as7 06:58 BP 129 / 44; Pulse 65; Resp 17 S; Pulse Ox 96% on R/A; lg3 08:12 BP 134 / 49; Pulse 72; Resp 14; Pulse Ox 96% on R/A; ld1 04:45 Body Mass Index 24.45 (62.60 kg, 160.02 cm) [facility] MDM: 04:49 Patient medically screened. sp3 05:12 Data reviewed: vital signs, nurses notes, old medical records, lab test result(s), EKG, sp3 radiologic studies. ED course: 57-year-old female with history of CHF, asthma, prior pneumonia now presents with recurrent difficulty breathing for 2 days. Differential diagnosis includes CHF, pneumonia, asthma, ACS, among others. I am not highly suspicious for pulmonary embolism or thoracic pathology including aortic aneurysm or dissection. Will obtain chest x-ray, laboratory values, EKG and general supportive care with additional medications as indicated based on work-up. Disposition will be dependent on work-up and patient course may include admission versus discharge.. 08/03 04:58 Order name: Basic Metabolic Panel; Complete Time: 06:36 sp3 08/03 04:58 Order name: CBC with Diff; Complete Time: 08:09 sp3 08/03 04:58 Order name: LFT's; Complete Time: 06:36 sp3 08/03 04:58 Order name: Magnesium; Complete Time: 06:36 sp3 08/03 04:58 Order name: NT PRO-BNP; Complete Time: 06:36 sp3 08/03 04:58 Order name: PT-INR; Complete Time: 06:36 sp3 08/03 04:58 Order name: Troponin HS; Complete Time: 06:36 sp3 08/03 05:36 Order name: CBC Smear Scan; Complete Time: 08:09 EDMS 08/03 06:37 Order name: Troponin High Sensitivity: Draw 2 hours after last; Complete Time: 08:45 sp3 08/03 04:58 Order name: XRAY Chest (1 view) sp3 08/03 07:03 Order name: CT Chest For PE Angio; Complete Time: 08:09 roxanna 08/03 04:58 Order name: EKG; Complete Time: 04:59 sp3 08/03 04:58 Order name: Cardiac monitoring; Complete Time: 05:29 sp3 08/03 04:58 Order name: EKG - Nurse/Tech; Complete Time: 06:18 sp3 08/03 04:58 Order name: IV Saline Lock; Complete Time: 05:31 sp3 08/03 04:58 Order name: Labs collected and sent; Complete Time: 05:32 sp3 08/03 04:58 Order name: O2 Per Protocol; Complete Time: 06:18 sp3 08/03 04:58 Order name: O2 Sat Monitoring; Complete Time: 05:29 sp3 Administered Medications: 05:11 CANCELLED (Error): HYDROmorphone IVP 1 mg IVP once sp3 05:11 CANCELLED (Error): Ondansetron IVP 4 mg IVP once; over 2 minutes sp3 07:56 Drug: Furosemide IVP 40 mg Route: IVP; Site: left antecubital; ld1 08:05 Drug: Mucomyst - Acetylcysteine PO 600 mg Route: PO; bp 08:42 Drug: Potassium PO Effervescent Tablet 50 mEq Route: PO; ld1 Disposition Summary: 08/03/22 08:45 Discharge Ordered Location: Home roxanna Problem: new roxanna Symptoms: have improved roxanna Condition: Stable roxanna Diagnosis - Dyspnea roxanna - Unspecified combined systolic (congestive) and diastolic (congestive) heart failure roxanna - Hypokalemia roxanna Followup: roxanna - With: Private Physician - When: 2 - 3 days - Reason: Recheck today's complaints, Continuance of care, Re-evaluation by your physician Followup: roxanna - With: - When: 2 - 3 days - Reason: Recheck today's complaints, Re-evaluation by your physician Discharge Instructions: - Discharge Summary Sheet roxanna - Heart Failure, Diagnosis roxanna - Potassium Content of Foods roxanna - Shortness of Breath, Adult roxanna - Shortness of Breath, Adult, [id number] roxanna - Heart Failure, Diagnosis, [id number] roxanna - Hypokalemia roxanna - Heart Failure Action Plan roxanna - Preventing Heart Failure roxanna - Living With Heart Failure roxanna - Heart Failure Exacerbation roxanna - Heart Failure Medicines roxanna - Heart Failure and Exercise roxanna Forms: - Medication Reconciliation Form roxanna - Thank You Letter roxanna - Antibiotic Education roxanna - Prescription Opioid Use roxanna Prescriptions: - Potassium Chloride 20 meq Oral Packet - take 1 packet by ORAL route once daily 1 packet in 6 (six) ounces of water or roxanna juice; Take after meal; 20 packet; Refills: 0, Product Selection Permitted Signatures: Dispatcher [employer] Charly Biswas MD MD cha Peltier, Brian RN RN bp Yesenia Peres RN RN ld1 Timo Madera MD MD sp3 Jnaie Griffin RN RN jj7 Corrections: (The following items were deleted from the chart) 05:11 05:01 HYDROmorphone IVP 1 mg IVP once ordered. sp3 sp3 05:11 05:01 Ondansetron IVP 4 mg IVP once; over 2 minutes ordered. sp3 sp3
--- NOTE | 2022-08-03 08:45 | ER ---
Nurse's Notes [facility] Name: Erika Jacobson Age: 87 yrs Sex: Female : 1935 Arrival Date: 08/03/2022 Time: 04:42 Bed 7 Private MD: Diagnosis: Dyspnea;Unspecified combined systolic (congestive) and diastolic (congestive) heart failure;Hypokalemia Presentation: 08/03 04:45 Chief complaint: Patient's son or daughter states: SOB STARTED 2 HRS AGO. Coronavirus jj7 screen: At this time, the client does not indicate any symptoms associated with coronavirus-19. Ebola Screen: No symptoms or risks identified at this time. Initial Sepsis Screen: Does the patient meet any 2 criteria? No. Patient's initial sepsis screen is negative. Does the patient have a suspected source of infection? No. Patient's initial sepsis screen is negative. Risk Assessment: Do you want to hurt yourself or someone else? Patient reports no desire to harm self or others. Onset of symptoms was August 03, 2022 at 03:00. 04:45 Method Of Arrival: Wheelchair jj7 04:45 Acuity: ISHAN 3 jj7 Triage Assessment: 04:45 General: Appears in no apparent distress. comfortable, Behavior is calm, cooperative, jj7 appropriate for age. Pain: Denies pain. Respiratory: Reports shortness of breath at rest Airway is patent Onset: The symptoms/episode began/occurred this morning, the patient has mild shortness of breath. Historical: - Allergies: 05:11 No Known Allergies; jj7 - PMHx: 05:11 Asthma; Congestive heart failure; Hyperlipidemia; CVA; Hypertension; jj7 - PSHx: 05:11 choleycestectomy; kidney stones; hysterectomy; jj7 - Immunization history:: Adult Immunizations up to date, Client reports receiving the 2nd dose of the Covid vaccine. - Social history:: Smoking status: Patient denies any tobacco usage or history of. Patient/guardian denies using alcohol, street drugs. Screenin:00 [facility] ED Fall Risk Assessment (Adult) History of falling in the last 3 months, lg3 including since admission No falls in past 3 months (0 pts). Abuse screen: Denies threats or abuse. Denies injuries from another. Nutritional screening: No deficits noted. Tuberculosis screening: No symptoms or risk factors identified. Assessment: 05:00 General: Appears in no apparent distress. comfortable, Behavior is calm, cooperative. lg3 Pain: Denies pain. Neuro: No deficits noted. Liu Agitation-Sedation Scale (RASS): 0 - Alert and Calm Level of Consciousness is awake, alert, obeys commands, Oriented to person, place, time, situation. Cardiovascular: No deficits noted. Rhythm is sinus rhythm. Respiratory: No deficits noted. Airway is patent Respiratory effort is even, unlabored, Respiratory pattern is regular, symmetrical, Breath sounds are clear bilaterally. GI: No deficits noted. No signs and/or symptoms were reported involving the gastrointestinal system. Abdomen is round non-distended. : No deficits noted. No signs and/or symptoms were reported regarding the genitourinary system. EENT: No deficits noted. No signs and/or symptoms were reported regarding the EENT system. Derm: No deficits noted. No signs and/or symptoms reported regarding the dermatologic system. Skin is intact, is healthy with good turgor, Skin is dry, Skin is normal, Skin temperature is warm. Musculoskeletal: No deficits noted. No signs and/or symptoms reported regarding the musculoskeletal system. Circulation, motion, and sensation intact. Range of motion: intact in all extremities. 08:24 Reassessment: Patient appears in no apparent distress at this time. No changes from ld1 previously documented assessment. Patient and/or family updated on plan of care and expected duration. Pain level reassessed. Patient is alert, oriented x 3, equal unlabored respirations, skin warm/dry/pink. Vital Signs: 04:45 BP 150 / 79; Pulse 83; Resp 18; Temp 99.2; Pulse Ox 98% ; Weight 62.6 kg; Height 5 ft. jj7 3 in. ; 05:33 BP 140 / 48; Pulse 81; Resp 17 S; Pulse Ox 95% on R/A; as7 06:58 BP 129 / 44; Pulse 65; Resp 17 S; Pulse Ox 96% on R/A; lg3 08:12 BP 134 / 49; Pulse 72; Resp 14; Pulse Ox 96% on R/A; ld1 04:45 Body Mass Index 24.45 (62.60 kg, 160.02 cm) [facility] ED Course: 04:43 Patient arrived in ED. ja2 04:45 Arm band placed on right wrist. Patient placed in an exam room, on a stretcher. jj7 04:49 Timo Madera MD is Attending Physician. sp3 05:00 Patient has correct armband on for positive identification. Placed in gown. Bed in low lg3 position. Call light in reach. Side rails up X 1. Client placed on continuous cardiac and pulse oximetry monitoring. NIBP monitoring applied. buttonhole facer on. Door closed. Noise minimized. Warm blanket given. Family accompanied patient. 05:11 Triage completed. jj7 05:32 Basic Metabolic Panel Sent. as7 05:32 CBC with Diff Sent. as7 05:32 LFT's Sent. as7 05:32 Magnesium Sent. as7 05:32 NT PRO-BNP Sent. as7 05:32 PT-INR Sent. as7 05:32 Troponin HS Sent. as7 05:32 Inserted saline lock: 22 gauge in left antecubital area, using aseptic technique. Blood as7 collected. 05:41 XRAY Chest (1 view) In Process Unspecified. EDMS 06:46 Vani Jerry, RN is Primary Nurse. lg3 06:58 Attending Physician role handed off by Timo Madera MD roxanna 06:58 Charly Guo MD is Attending Physician. roxanna 07:37 CT Chest For PE Angio In Process Unspecified. EDMS 08:45 Preston Tubbs MD is Referral Physician. roxanna 09:45 No provider procedures requiring assistance completed. IV discontinued, intact, ld1 bleeding controlled, No redness/swelling at site. Administered Medications: 05:11 CANCELLED (Error): HYDROmorphone IVP 1 mg IVP once sp3 05:11 CANCELLED (Error): Ondansetron IVP 4 mg IVP once; over 2 minutes sp3 07:56 Drug: Furosemide IVP 40 mg Route: IVP; Site: left antecubital; ld1 08:05 Drug: Mucomyst - Acetylcysteine PO 600 mg Route: PO; bp 08:42 Drug: Potassium PO Effervescent Tablet 50 mEq Route: PO; ld1 Medication: 09:45 VIS not applicable for this client. ld1 Outcome: 08:45 Discharge ordered by . roxanna 09:45 Discharged to home via wheelchair, with family. ld1 09:45 Condition: stable 09:45 Discharge instructions given to patient, family, Instructed on discharge instructions, follow up and referral plans. medication usage, Demonstrated understanding of instructions, follow-up care, medications, Prescriptions given X 1. 09:45 Patient left the ED. ld1 Signatures: Dispatcher [employer] EDAZ Charly Guo MD MD cha Peltier, Brian, RN RN bp Vani Jerry RN RN lg3 Yesenia Peres RN RN ld1 Timo Madera MD MD sp3 Araseli Ugalde Juwairiyah, RN RN jj7 Durga, Lexis as7
[2022-08-03 10:03] VITALS: TEMP 99.2
[2022-08-03 10:07] VITALS: O2SAT 96
[2022-08-03 10:09] VITALS: BP 134/49
--- NOTE | 2022-08-03 15:33 | RAD REPORT ---
EXAM DESCRIPTION: Chest Radiography COMPARISON: Chest radiograph May 28, 2022 CLINICAL HISTORY: [facility] DYSPNEA FINDINGS: A single AP view of the chest demonstrates a normal cardiomediastinal silhouette. Aortic a therosclerosis is present. No pneumothorax or pleural effusion. No consolidation or pulmonary edema. Osseous structures are intact. IMPRESSION: No acute chest process. Electronically signed by: Burt Alvarez MD 08/03/2022 6:06 AM CDT Due to temporary technical issues with the PACS/Fluency reporting system, reports are being signed by the in house radiologists without review as a courtesy to insure prompt reporting. The interpreting radiologist is fully responsible for the content of the report.
--- NOTE | 2022-08-04 17:44 | EKG ---
Test Date: 2022-08-03 Test Time: 06:03:45 Aquatic Biologist: JOANNA MEASUREMENT RESULTS: Intervals: Rate: 72 UT: 154 QRSD: 142 QT: 464 QTc: 508 [place]: P: 43 UT: 154 QRS: 192 T: 35 INTERPRETIVE STATEMENTS: Normal sinus rhythm Right superior axis deviation Nonspecific intraventricular block Abnormal ECG Compared to ECG 07/10/2022 20:59:36 Right superior axis now present Sinus arrhythmia no longer present Left bundle-branch block no longer present Electronically Signed On 08-04-22 17:40:11 CDT by Preston Tubbs
== END 2022-08-03 09:45 | disposition home or self-care (01) ==
LOC: ER 04:42
DX: I50.40 Unspecified combined systolic (congestive) and diastolic (congestive) heart failure (principal); I10 Essential (primary) hypertension; J45.909 Unspecified asthma, uncomplicated
CPT/HCPCS: 85025; 80048; 36415; 83735; 85610; 80076; 84484 ×2; 83880; 71275; 71045; Q9967; J1940; J0132; 93005

== ENCOUNTER 2022-08-07 19:25 | Emergency (ER) | payer OTHER ==
--- OUTSIDE RECORDS SUMMARY | 2022-08-07 19:49 | XMS REPORT | Continuity of Care Document ---
:[address] [facility] t Address [address] [facility] [place] [address] Care Team Providers Name Role Phone Carmelita MURGUIA, Wu Primary Care Physician LILIANA LI Attending Clinician Unavailable WON MATT Attending Clinician Unavailable WON MATT Attending Clinician Unavailable CECI LO K.HGertrude Attending Clinician Unavailable ANGELA CUNNINGHAM Attending Clinician Unavailable ANGELA CUNNINGHAM Attending Clinician Unavailable Ceci Lo MD K.HGertrude Attending Clinician Doctor Unassigned, [place] Attending Clinician Unavailable Lab, Thom Beaver Attending Clinician Unavailable Pob, Adc Lab Main Attending Clinician Unavailable Samreen Lee LMSW Attending Clinician STELLA GOODWIN Attending Clinician Unavailable KERLINE BURTON Attending Clinician Unavailable Won Matt MD Attending Clinician NurseLucie Neurology Attending Clinician Unavailable Unknown, Attending Attending Clinician Unavailable Jh MURGUIA, Emma Attending Clinician Jimmie ONCOLOGY RADIATION PHYSICIAN, Araseli Attending Clinician Rea ONCOLOGY RADIATION PHYSICIAN, Tamela Attending Clinician TAMELA LUCIA Attending Clinician Unavailable CHARY DONALD Attending Clinician Unavailable Chary Infante Attending Clinician DANIEL PÉREZ Attending Clinician Unavailable ITALIA PRESTON Attending Clinician Unavailable Keerthi Cuenca MD Attending Clinician Ree Mccartney MD Attending Clinician Daniela, Thom Db Test Attending Clinician Unavailable Tera Cuenca Attending Clinician TERA RICKS Attending Clinician Unavailable KALYN PARADA Attending Clinician Unavailable KEERTHI CUENAC Attending Clinician Unavailable Lyla GLASS, Amaya Attending Clinician Gerardo Tee MD Attending Clinician Cristobal PALAFOX, Pamela Roman Attending Clinician Unavailable Austin Hobson MD Attending Clinician AUSTIN HOBSON Attending Clinician Unavailable JESSICA ERIC Attending Clinician Unavailable AMAYA RUSS Attending Clinician [...] Attending Clinician Unavailable Mirella Villalobos Attending Clinician [phone] Shy Miller Attending Clinician Unavailable 2, [facility] Lab Attending Clinician Unavailable LILIANA LI Admitting Clinician Unavailable BOB HUI Admitting Clinician Unavailable WON MATT Admitting Clinician Unavailable AUSTIN HOBSON Admitting Clinician Unavailable ADRIANA HARTMANN Admitting Clinician Unavailable Payers Payer Name Policy Type Policy Number Effective Date Expiration Date Michael alvarez AARP/MEDICARE [id number] 2019 COMPLETE 00:00:00 WELL[employer]/AARP [id number] 2019 MEDICARE 00:00:00 ADVANTAGE MEDICAID [place] [id number] 2017 [place] 00:00:00 [id number] [facility] [id number] [facility] [id number] 2019 2020 [facility] - 00:00:00 00:00:00 Community MEDICARE [...] Medical Branch Uses Uses Disease Active Univers [place] as [place] as 07-10 it y of primary primary [...] Unive rs 4-25 ity of 00:00: [place] [facility] 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 0-05 it y of 2 diabetes 2 [place] mellitus mellitus 00 Medica l Branch Essential Essential Disease Active 2016-02 Uni vers hypertensi hypertensi 0-02 it y of on on 00:00: [place] [address] Medical Branch HLD HLD Disease Active 2016-02 Univers (hyperlipi (hyperlipi 0-02 it y of demia) demia) 00:00: [place] [address] Medical Branch History of History of Disease Active 2016-02 U nivers chest pain chest pain 0-02 it y of 00:00: [place] [address] Medical Branch Palpitatio Palpitatio Disease Active 2016-02 U nivers ns ns 0-02 ity of 00:00: [place] [address] Medical Branch Osteoporos Osteoporos Disease Active U nivers is is ity of [facility] Abnormal Abnormal Disease Active [facility] rs EKG EKG ity of [facility] Asthma Asthma Disease Active [facility] of Medicin e History of History of Disease Active [facility] stroke stroke [employer] with with of residual residual Medici n left-sided left-sided e weakness weakness No known No known Disease [facility] active [facility] problems problems of Medicin e Allergies, Adverse Reactions, Alerts Allergy Allergy Status Severity Reaction(s) Onset Inactive Treating Comm ents Source Name Type Date Date Clinician NO KNOWN Allergy Active MOISES Tang ALLERGLALY [facility] NO KNOWN Drug Active Univers ALLERGIE Class ity of S [facility] Social History Social Habit Start Date Stop Date Quantity Comments Source History SDOH [facility] Std [facility] Drinks History SDOH [facility] Alcohol Binge Medical Marilyn ter History SDOH [facility] Alcohol Comment Medical C enter Exposure to 2022-07-02 2022-07-12 Not sure University SARS-CoV-2 00:00:00 14:22:00 [facility] (event) [place] Tobacco use and 2021-08-27 2021-08-27 Smokeless tobacco Un iversity of exposure 00:00:00 00:00:00 non-user [facility] Alcohol intake 2019-07-12 2019-07-[address] [facility] 00:[facility] 00:00:00 non-drinker of Medical Ce nter alcohol (finding) History SDOH 2019-07-10 2019-07-10 1 MOISES Marte Alcohol Frequency 00:00:00 00:00:00 [facility] Sex Assigned At [birth year] MOISES Christiansons 00:00:00 00:00:00 [facility] Smoking Status Start Date Stop Date Source Never smoked tobacco [facility] Medications Ordered Filled Start Stop Current Ordering Indication Dosage Frequency Signature Comments Components Source Medication Medication Date Date Medication? Clinician (SIG) Name Name furosemide 2022-0 Yes [id number] 80mg Take 2 Univers 40 mg 5-16 tablets by ity of tablet 00:00: mouth [place] 00 every Medical morning Branch and evening. furosemide 2022-0 Yes [id number] 80mg Take 2 Univers 40 mg 5-16 tablets by ity of tablet 00:00: mouth [place] 00 every Medical morning Branch and evening. furosemide 2022-0 Yes [id number] 80mg Take 2 Univers 40 mg 5-16 tablets by ity of tablet 00:00: mouth [place] 00 every Medical morning Branch and evening. furosemide 3-0 Yes [id number] 80mg Take 2 Univers 40 mg 5-16 tablets by ity of tablet 00:00: mouth [place] 00 every Medical morning Branch and evening. furosemide 2023-0 Yes [id number] 80mg Take 2 Univers 40 mg 5-16 tablets by ity of tablet 00:00: mouth [place] 00 every Medical morning Branch and evening. furosemide 2023-0 Yes [id number] 80mg Take 2 Univers 40 mg 5-16 tablets by ity of tablet 00:00: mouth [place] 00 every Medical morning Branch and evening. furosemide 2023-0 Yes [id number] 80mg Take 2 Univers 40 mg 5-16 tablets by ity of tablet 00:00: mouth [place] 00 every Medical morning Branch and evening. furosemide 2023-0 Yes [id number] 80mg Take 2 Univers 40 mg 5-16 tablets by ity of tablet 00:00: mouth [place] 00 every Medical morning Branch and evening. furosemide 2023-0 Yes [id number] 80mg Take 2 Univers 40 mg 5-16 tablets by ity of tablet 00:00: mouth [place] 00 every Medical morning Branch and evening. furosemide 2023-0 Yes [id number] 80mg Take 2 Univers 40 mg 5-16 tablets by ity of tablet 00:00: mouth [place] 00 every Medical morning Branch and evening. furosemide Yes [id number] 80mg Take 2 Univers 40 mg 5-16 tablets by ity of tablet 00:00: mouth [place] 00 every Medical morning Branch and evening. furosemide 0 Yes [id number] 80mg Take 2 Univers 40 mg 5-16 tablets by ity of tablet 00:00: mouth [place] 00 every Medical morning Branch and evening. furosemide 0 Yes [id number] 80mg Take 2 Univers 40 mg 5-16 tablets by ity of tablet 00:00: mouth [place] 00 every Medical morning Branch and evening. furosemide 0 Yes [id number] 80mg Take 2 Univers 40 mg 5-16 tablets by ity of tablet 00:00: mouth [place] 00 every Medical morning Branch and evening. regadenoson 2022- No [id number] .4mg 0.4 mg, IV Univers (LEXISCAN) 06-23 Push, ity of injection 17:00: 15:51 ONCE, 1 [place] 0.4 [place] 00 :00 dose, On [facility] 06/23/22 at 1200, Routine
bakery team member approving Restricted medication : CECI LO tc 2022- No [id number] 43.8mCi 43.8 Unive rs 99m-tetrofo 06-23 millicurie i ty of smin 15:30: 15:19 , [place] ([facility]) 00 :00 Intravenou Medi angelica injection s, ONCE, 1 Bran ch 43.8 dose, On [facility] 06/23/22 at 1030, Routine tc 2022- No [id number] 16.5mCi 16.5 Unive rs 99m-tetrofo 06-23 millicurie i ty of smin 13:45: 13:45 , [place] ([facility]) 00 :00 Intravenou Medi angelica injection s, ONCE, 1 Bran ch 16.5 dose, On [facility] 06/23/22 at 0845, Routine furosemide Yes [id number] 80mg Take 2 Univers 40 mg 5-09 tablets by ity of tablet 00:00: mouth [place] 00 every Medical morning Branch and evening. furosemide 2022-0 Yes [id number] 80mg Take 2 Univers 40 mg 5-09 tablets by ity of tablet 00:00: mouth [place] 00 every Medical morning Branch and evening. furosemide 2022-0 Yes [id number] 80mg Take 2 Univers 40 mg 5-09 tablets by ity of tablet 00:00: mouth [place] 00 every Medical morning Branch and evening. furosemide 2022-0 Yes [id number] 80mg Take 2 Univers 40 mg 5-09 tablets by ity of tablet 00:00: mouth [place] 00 every Medical morning Branch and evening. furosemide 2022-0 Yes [id number] 80mg Take 2 Univers 40 mg 5-09 tablets by ity of tablet 00:00: mouth [place] 00 every Medical morning Branch and evening. furosemide 2022-0 Yes [id number] 80mg Take 2 Univers 40 mg 5-09 tablets by ity of tablet 00:00: mouth [place] 00 every Medical morning Branch and evening. furosemide 2022-0 2023- No [id number] 80mg Take 2 Univers 40 mg 5-09 05-16 tablets by ity of tablet 00:00: 00:00 mouth [place] 00 :00 every Medical morning Branch and evening. furosemide 2022-0 2023- No [id number] 80mg Take 2 Univers 40 mg 5-09 05-16 tablets by ity of tablet 00:00: 00:00 mouth [place] 00 :00 every Medical morning Branch and evening. atorvastati 2022-0 Yes [id number] 20mg Take 1 Univers n 20 mg 4-28 tablet by ity of tablet 00:00: mouth at [place] 00 bedtime. Medical Branch furosemide 2022-0 Yes [id number] 40mg Take 1 Univers 40 mg 4-28 tablet by ity of tablet 00:00: mouth [place] 00 every Medical morning Branch and evening. losartan 50 2022-0 Yes [id number] 25mg Take 0.5 Univers mg tablet 4-28 tablets by ity of 00:00: mouth [place] 00 every day Medical at 1200 Branch (noon). ipratropium 2022-0 Yes [id number] .5mg Inhale 2.5 Univers 0.02 % 4-28 mL every 6 ity of nebulizer 00:00: (six) [place] solution 00 hours as Medical needed for Branch Wheezing or Shortness of Breath. albuterol 2022-0 Yes [id number] 2.5mg Inhale 3 Univers 2.5 mg /3 4-28 mL every 8 ity of mL (0.083 00:00: (eight) [place] %) 00 hours as Medical nebulizer needed for Bran ch solution Wheezing or Shortness of Breath. atorvastati 2022-0 Yes [id number] 20mg Take 1 Univers n 20 mg 4-28 tablet by ity of tablet 00:00: mouth at [place] 00 bedtime. Medical Branch furosemide 2022-0 Yes [id number] 40mg Take 1 Univers 40 mg 4-28 tablet by ity of tablet 00:00: mouth [place] 00 every Medical morning Branch and evening. losartan 50 2022-0 Yes [id number] 25mg Take 0.5 Univers mg tablet 4-28 tablets by ity of 00:00: mouth [place] 00 every day Medical at 1200 Branch (noon). ipratropium 2022-0 Yes [id number] .5mg Inhale 2.5 Univers 0.02 % 4-28 mL every 6 ity of nebulizer 00:00: (six) [place] solution 00 hours as Medical needed for Branch Wheezing or Shortness of Breath. albuterol 2022-0 Yes [id number] 2.5mg Inhale 3 Univers 2.5 mg /3 4-28 mL every 8 ity of mL (0.083 00:00: (eight) [place] %) 00 hours as Medical nebulizer needed for Bran ch solution Wheezing or Shortness of Breath. atorvastati 2022-0 Yes [id number] 20mg Take 1 Univers n 20 mg 4-28 tablet by ity of tablet 00:00: mouth at [place] 00 bedtime. Medical Branch furosemide 2022-0 Yes [id number] 40mg Take 1 Univers 40 mg 4-28 tablet by ity of tablet 00:00: mouth [place] 00 every Medical morning Branch and evening. losartan 50 2022-0 Yes [id number] 25mg Take 0.5 Univers mg tablet 4-28 tablets by ity of 00:00: mouth [place] 00 every day Medical at 1200 Branch (noon). ipratropium 2022-0 Yes [id number] .5mg Inhale 2.5 Univers 0.02 % 4-28 mL every 6 ity of nebulizer 00:00: (six) [place] solution 00 hours as Medical needed for Branch Wheezing or Shortness of Breath. albuterol 2022-0 Yes [id number] 2.5mg Inhale 3 Univers 2.5 mg /3 4-28 mL every 8 ity of mL (0.083 00:00: (eight) [place] %) 00 hours as Medical nebulizer needed for Bran ch solution Wheezing or Shortness of Breath. atorvastati 2022-0 Yes [id number] 20mg Take 1 Univers n 20 mg 4-28 tablet by ity of tablet 00:00: mouth at [place] 00 bedtime. Medical Branch furosemide 2022-0 Yes [id number] 40mg Take 1 Univers 40 mg 4-28 tablet by ity of tablet 00:00: mouth [place] 00 every Medical morning Branch and evening. losartan 50 2022-0 Yes [id number] 25mg Take 0.5 Univers mg tablet 4-28 tablets by ity of 00:00: mouth [place] 00 every day Medical at 1200 Branch (noon). ipratropium 2022-0 Yes [id number] .5mg Inhale 2.5 Univers 0.02 % 4-28 mL every 6 ity of nebulizer 00:00: (six) [place] solution 00 hours as Medical needed for Branch Wheezing or Shortness of Breath. albuterol 2022-0 Yes [id number] 2.5mg Inhale 3 Univers 2.5 mg /3 4-28 mL every 8 ity of mL (0.083 00:00: (eight) [place] %) 00 hours as Medical nebulizer needed for Bran ch solution Wheezing or Shortness of Breath. atorvastati 2022-0 Yes [id number] 20mg Take 1 Univers n 20 mg 4-28 tablet by ity of tablet 00:00: mouth at [place] 00 bedtime. Medical Branch furosemide 2022-0 Yes [id number] 40mg Take 1 Univers 40 mg 4-28 tablet by ity of tablet 00:00: mouth [place] 00 every Medical morning Branch and evening. losartan 50 2022-0 Yes [id number] 25mg Take 0.5 Univers mg tablet 4-28 tablets by ity of 00:00: mouth [place] 00 every day Medical at 1200 Branch (noon). ipratropium 2022-0 Yes [id number] .5mg Inhale 2.5 Univers 0.02 % 4-28 mL every 6 ity of nebulizer 00:00: (six) [place] solution 00 hours as Medical needed for Branch Wheezing or Shortness of Breath. albuterol 2022-0 Yes [id number] 2.5mg Inhale 3 Univers 2.5 mg /3 4-28 mL every 8 ity of mL (0.083 00:00: (eight) [place] %) 00 hours as Medical nebulizer needed for Bran ch solution Wheezing or Shortness of Breath. atorvastati 2022-0 Yes [id number] 20mg Take 1 Univers n 20 mg 4-28 tablet by ity of tablet 00:00: mouth at [place] 00 bedtime. Medical Branch furosemide 2022-0 Yes [id number] 40mg Take 1 Univers 40 mg 4-28 tablet by ity of tablet 00:00: mouth [place] 00 every Medical morning Branch and evening. losartan 50 2022-0 Yes [id number] 25mg Take 0.5 Univers mg tablet 4-28 tablets by ity of 00:00: mouth [place] 00 every day Medical at 1200 Branch (noon). ipratropium 2022-0 Yes [id number] .5mg Inhale 2.5 Univers 0.02 % 4-28 mL every 6 ity of nebulizer 00:00: (six) [place] solution 00 hours as Medical needed for Branch Wheezing or Shortness of Breath. albuterol 2022-0 Yes [id number] 2.5mg Inhale 3 Univers 2.5 mg /3 4-28 mL every 8 ity of mL (0.083 00:00: (eight) [place] %) 00 hours as Medical nebulizer needed for Bran ch solution Wheezing or Shortness of Breath. atorvastati 2022-0 Yes [id number] 20mg Take 1 Univers n 20 mg 4-28 tablet by ity of tablet 00:00: mouth at [place] 00 bedtime. Medical Branch furosemide 2022-0 Yes [id number] 40mg Take 1 Univers 40 mg 4-28 tablet by ity of tablet 00:00: mouth [place] 00 every Medical morning Branch and evening. losartan 50 2022-0 Yes [id number] 25mg Take 0.5 Univers mg tablet 4-28 tablets by ity of 00:00: mouth [place] 00 every day Medical at 1200 Branch (noon). ipratropium 2022-0 Yes [id number] .5mg Inhale 2.5 Univers 0.02 % 4-28 mL every 6 ity of nebulizer 00:00: (six) [place] solution 00 hours as Medical needed for Branch Wheezing or Shortness of Breath. albuterol 2022-0 Yes [id number] 2.5mg Inhale 3 Univers 2.5 mg /3 4-28 mL every 8 ity of mL (0.083 00:00: (eight) [place] %) 00 hours as Medical nebulizer needed for Bran ch solution Wheezing or Shortness of Breath. atorvastati 2022-0 Yes [id number] 20mg Take 1 Univers n 20 mg 4-28 tablet by ity of tablet 00:00: mouth at [place] 00 bedtime. Medical Branch furosemide 2022-0 Yes [id number] 40mg Take 1 Univers 40 mg 4-28 tablet by ity of tablet 00:00: mouth [place] 00 every Medical morning Branch and evening. losartan 50 2022-0 Yes [id number] 25mg Take 0.5 Univers mg tablet 4-28 tablets by ity of 00:00: mouth [place] 00 every day Medical at 1200 Branch (noon). ipratropium 2022-0 Yes [id number] .5mg Inhale 2.5 Univers 0.02 % 4-28 mL every 6 ity of nebulizer 00:00: (six) [place] solution 00 hours as Medical needed for Branch Wheezing or Shortness of Breath. albuterol 2022-0 Yes [id number] 2.5mg Inhale 3 Univers 2.5 mg /3 4-28 mL every 8 ity of mL (0.083 00:00: (eight) [place] %) 00 hours as Medical nebulizer needed for Bran ch solution Wheezing or Shortness of Breath. atorvastati 2022-0 Yes [id number] 20mg Take 1 Univers n 20 mg 4-28 tablet by ity of tablet 00:00: mouth at [place] 00 bedtime. Medical Branch furosemide 2022-0 Yes [id number] 40mg Take 1 Univers 40 mg 4-28 tablet by ity of tablet 00:00: mouth [place] 00 every Medical morning Branch and evening. losartan 50 2023-0 Yes [id number] 25mg Take 0.5 Univers mg tablet 4-28 tablets by ity of 00:00: mouth [place] 00 every day Medical at 1200 Branch (noon). ipratropium 3-0 Yes [id number] .5mg Inhale 2.5 Univers 0.02 % 4-28 mL every 6 ity of nebulizer 00:00: (six) [place] solution 00 hours as Medical needed for Branch Wheezing or Shortness of Breath. albuterol 3-0 Yes [id number] 2.5mg Inhale 3 Univers 2.5 mg /3 4-28 mL every 8 ity of mL (0.083 00:00: (eight) [place] %) 00 hours as Medical nebulizer needed for Bran ch solution Wheezing or Shortness of Breath. atorvastati 2022-0 Yes [id number] 20mg Take 1 Univers n 20 mg 4-28 tablet by ity of tablet 00:00: mouth at [place] 00 bedtime. Medical Branch furosemide 2022-0 Yes [id number] 40mg Take 1 Univers 40 mg 4-28 tablet by ity of tablet 00:00: mouth [place] 00 every Medical morning Branch and evening. losartan 50 2022-0 Yes [id number] 25mg Take 0.5 Univers mg tablet 4-28 tablets by ity of 00:00: mouth [place] 00 every day Medical at 1200 Branch (noon). ipratropium 2022-0 Yes [id number] .5mg Inhale 2.5 Univers 0.02 % 4-28 mL every 6 ity of nebulizer 00:00: (six) [place] solution 00 hours as Medical needed for Branch Wheezing or Shortness of Breath. albuterol 2022-0 Yes [id number] 2.5mg Inhale 3 Univers 2.5 mg /3 4-28 mL every 8 ity of mL (0.083 00:00: (eight) [place] %) 00 hours as Medical nebulizer needed for Bran ch solution Wheezing or Shortness of Breath. atorvastati 2022-0 Yes [id number] 20mg Take 1 Univers n 20 mg 4-28 tablet by ity of tablet 00:00: mouth at [place] 00 bedtime. Medical Branch furosemide 2022-0 Yes [id number] 40mg Take 1 Univers 40 mg 4-28 tablet by ity of tablet 00:00: mouth [place] 00 every Medical morning Branch and evening. losartan 50 3-0 Yes [id number] 25mg Take 0.5 Univers mg tablet 4-28 tablets by ity of 00:00: mouth [place] 00 every day Medical at 1200 Branch (noon). ipratropium 3-0 Yes [id number] .5mg Inhale 2.5 Univers 0.02 % 4-28 mL every 6 ity of nebulizer 00:00: (six) [place] solution 00 hours as Medical needed for Branch Wheezing or Shortness of Breath. albuterol 2022-0 Yes [id number] 2.5mg Inhale 3 Univers 2.5 mg /3 4-28 mL every 8 ity of mL (0.083 00:00: (eight) [place] %) 00 hours as Medical nebulizer needed for Bran ch solution Wheezing or Shortness of Breath. atorvastati 2022-0 Yes [id number] 20mg Take 1 Univers n 20 mg 4-28 tablet by ity of tablet 00:00: mouth at [place] 00 bedtime. Medical Branch furosemide 2022-0 Yes [id number] 40mg Take 1 Univers 40 mg 4-28 tablet by ity of tablet 00:00: mouth [place] 00 every Medical morning Branch and evening. losartan 50 2022-0 Yes [id number] 25mg Take 0.5 Univers mg tablet 4-28 tablets by ity of 00:00: mouth [place] 00 every day Medical at 1200 Branch (noon). ipratropium 2022-0 Yes [id number] .5mg Inhale 2.5 Univers 0.02 % 4-28 mL every 6 ity of nebulizer 00:00: (six) [place] solution 00 hours as Medical needed for Branch Wheezing or Shortness of Breath. albuterol 2022-0 Yes [id number] 2.5mg Inhale 3 Univers 2.5 mg /3 4-28 mL every 8 ity of mL (0.083 00:00: (eight) [place] %) 00 hours as Medical nebulizer needed for Bran ch solution Wheezing or Shortness of Breath. atorvastati 2022-0 Yes [id number] 20mg Take 1 Univers n 20 mg 4-28 tablet by ity of tablet 00:00: mouth at [place] 00 bedtime. Medical Branch losartan 50 3-0 Yes [id number] 25mg Take 0.5 Univers mg tablet 4-28 tablets by ity of 00:00: mouth [place] 00 every day Medical at 1200 Branch (noon). ipratropium 3-0 Yes [id number] .5mg Inhale 2.5 Univers 0.02 % 4-28 mL every 6 ity of nebulizer 00:00: (six) [place] solution 00 hours as Medical needed for Branch Wheezing or Shortness of Breath. albuterol 2023-0 Yes [id number] 2.5mg Inhale 3 Univers 2.5 mg /3 4-28 mL every 8 ity of mL (0.083 00:00: (eight) [place] %) 00 hours as Medical nebulizer needed for Bran ch solution Wheezing or Shortness of Breath. atorvastati 2022-0 Yes [id number] 20mg Take 1 Univers n 20 mg 4-28 tablet by ity of tablet 00:00: mouth at [place] 00 bedtime. Medical Branch losartan 50 2022-0 Yes [id number] 25mg Take 0.5 Univers mg tablet 4-28 tablets by ity of 00:00: mouth [place] 00 every day Medical at 1200 Branch (noon). ipratropium 2023-0 Yes [id number] .5mg Inhale 2.5 Univers 0.02 % 4-28 mL every 6 ity of nebulizer 00:00: (six) [place] solution 00 hours as Medical needed for Branch Wheezing or Shortness of Breath. albuterol 2022-0 Yes [id number] 2.5mg Inhale 3 Univers 2.5 mg /3 4-28 mL every 8 ity of mL (0.083 00:00: (eight) [place] %) 00 hours as Medical nebulizer needed for Bran ch solution Wheezing or Shortness of Breath. atorvastati 2022-0 Yes [id number] 20mg Take 1 Univers n 20 mg 4-28 tablet by ity of tablet 00:00: mouth at [place] 00 bedtime. Medical Branch losartan 50 2022-0 Yes [id number] 25mg Take 0.5 Univers mg tablet 4-28 tablets by ity of 00:00: mouth [place] 00 every day Medical at 1200 [place] (noon). ipratropium 3-0 Yes [id number] .5mg Inhale 2.5 Univers 0.02 % 4-28 mL every 6 ity of nebulizer 00:00: (six) [place] solution 00 hours as Medical needed for Branch Wheezing or Shortness of Breath. albuterol 2023-0 Yes [id number] 2.5mg Inhale 3 Univers 2.5 mg /3 4-28 mL every 8 ity of mL (0.083 00:00: (eight) [place] %) 00 hours as Medical nebulizer needed for Bran ch solution Wheezing or Shortness of Breath. atorvastati 2022-0 Yes [id number] 20mg Take 1 Univers n 20 mg 4-28 tablet by ity of tablet 00:00: mouth at [place] 00 bedtime. Medical Branch losartan 50 2022-0 Yes [id number] 25mg Take 0.5 Univers mg tablet 4-28 tablets by ity of 00:00: mouth [place] 00 every day Medical at 1200 [place] (noon). ipratropium 3-0 Yes [id number] .5mg Inhale 2.5 Univers 0.02 % 4-28 mL every 6 ity of nebulizer 00:00: (six) [place] solution 00 hours as Medical needed for Branch Wheezing or Shortness of Breath. albuterol 2022-0 Yes [id number] 2.5mg Inhale 3 Univers 2.5 mg /3 4-28 mL every 8 ity of mL (0.083 00:00: (eight) [place] %) 00 hours as Medical nebulizer needed for Bran ch solution Wheezing or Shortness of Breath. atorvastati 2022-0 Yes [id number] 20mg Take 1 Univers n 20 mg 4-28 tablet by ity of tablet 00:00: mouth at [place] 00 bedtime. Medical Branch losartan 50 2022-0 Yes [id number] 25mg Take 0.5 Univers mg tablet 4-28 tablets by ity of 00:00: mouth [place] 00 every day Medical at 1200 [place] (noon). ipratropium 3-0 Yes [id number] .5mg Inhale 2.5 Univers 0.02 % 4-28 mL every 6 ity of nebulizer 00:00: (six) [place] solution 00 hours as Medical needed for Branch Wheezing or Shortness of Breath. albuterol 3-0 Yes [id number] 2.5mg Inhale 3 Univers 2.5 mg /3 4-28 mL every 8 ity of mL (0.083 00:00: (eight) [place] %) 00 hours as Medical nebulizer needed for Bran ch solution Wheezing or Shortness of Breath. atorvastati 2022-0 Yes [id number] 20mg Take 1 Univers n 20 mg 4-28 tablet by ity of tablet 00:00: mouth at [place] 00 bedtime. Medical Branch losartan 50 2022-0 Yes [id number] 25mg Take 0.5 Univers mg tablet 4-28 tablets by ity of 00:00: mouth [place] 00 every day Medical at 1200 [place] (noon). ipratropium 2023-0 Yes [id number] .5mg Inhale 2.5 Univers 0.02 % 4-28 mL every 6 ity of nebulizer 00:00: (six) [place] solution 00 hours as Medical needed for Branch Wheezing or Shortness of Breath. albuterol 2023-0 Yes [id number] 2.5mg Inhale 3 Univers 2.5 mg /3 4-28 mL every 8 ity of mL (0.083 00:00: (eight) [place] %) 00 hours as Medical nebulizer needed for Bran ch solution Wheezing or Shortness of Breath. atorvastati 2023-0 Yes [id number] 20mg Take 1 [facility] n 20 mg 4-28 tablet by [facility] tablet 00:00: mouth at [place] 00 bedtime. Medical Branch losartan 50 2022-0 Yes [id number] 25mg Take 0.5 [facility] mg tablet 4-28 tablets by [facility] of 00:00: mouth [place] 00 every day Medical at [address] (noon). ipratropium 2023-0 Yes [id number] .5mg Inhale 2.5 [facility] 0.02 % 4-28 mL every 6 [facility] of nebulizer 00:00: (six) [place] solution 00 hours as Medical needed for Branch Wheezing or Shortness of Breath. albuterol 2023-0 Yes [id number] 2.5mg Inhale 3 [facility] 2.5 mg /3 4-28 mL every 8 [facility] of mL (0.083 00:00: (eight) [place] %) 00 hours as Medical nebulizer needed for Bran ch solution Wheezing or Shortness of Breath. atorvastati 2023-0 Yes [id number] 20mg Take 1 [facility] n 20 mg 4-28 tablet by [facility] of tablet 00:00: mouth at [place] 00 bedtime. Medical Branch losartan 50 3-0 Yes [id number] 25mg Take 0.5 [facility] mg tablet 4-28 tablets by [facility] of 00:00: mouth [place] 00 every day Medical at [address] (noon). ipratropium 2023-0 Yes [id number] .5mg Inhale 2.5 [facility] 0.02 % 4-28 mL every 6 it[facility] of nebulizer 00:00: (six) [place] solution 00 hours as Medical needed for Branch Wheezing or Shortness of Breath. albuterol 3-0 Yes [id number] 2.5mg Inhale 3 [facility] 2.5 mg /3 4-28 mL every 8 [facility] of mL (0.083 00:00: (eight) [place] %) 00 hours as Medical nebulizer needed for Bran ch solution Wheezing or Shortness of Breath. atorvastati 2022-0 Yes [id number] 20mg Take 1 [facility] n 20 mg 4-28 tablet by [facility] of tablet 00:00: mouth at [place] 00 bedtime. Medical Branch losartan 50 2022-0 Yes [id number] 25mg Take 0.5 [facility] mg tablet 4-28 tablets by [facility] of 00:00: mouth [place] 00 every day Medical at [address] [facility] (noon). ipratropium 3-0 Yes [id number] .5mg Inhale 2.5 [facility] 0.02 % 4-28 mL every 6 [facility] of nebulizer 00:00: (six) [place] solution 00 hours as Medical needed for Branch Wheezing or Shortness of Breath. albuterol 2022-0 Yes [id number] 2.5mg Inhale 3 [facility] 2.5 mg /3 4-28 mL every 8 [facility] of mL (0.083 00:00: (eight) [place] %) 00 hours as Medical nebulizer needed for Bran ch solution Wheezing or Shortness of Breath. atorvastati 2022-0 Yes [id number] 20mg Take 1 [facility] n 20 mg 4-28 tablet by [facility] of tablet 00:00: mouth at [place] 00 bedtime. Medical Branch losartan 50 2022-0 Yes [id number] 25mg Take 0.5 [facility] mg tablet 4-28 tablets by [facility] of 00:00: mouth [place] 00 every day Medical at [address] [facility] (noon). ipratropium 2023-0 Yes [id number] .5mg Inhale 2.5 [facility] 0.02 % 4-28 mL every 6 [facility] of nebulizer 00:00: (six) [place] solution 00 hours as Medical needed for Branch Wheezing or Shortness of Breath. albuterol 3-0 Yes [id number] 2.5mg Inhale 3 [facility] 2.5 mg /3 4-28 mL every 8 [facility] of mL (0.083 00:00: (eight) [place] %) 00 hours as Medical nebulizer needed for Bran ch solution Wheezing or Shortness of Breath. atorvastati 2022-0 Yes [id number] 20mg Take 1 [facility] n 20 mg 4-28 tablet by [facility] of tablet 00:00: mouth at [place] 00 bedtime. Medical Branch losartan 50 2022-0 Yes [id number] 25mg Take 0.5 [facility] mg tablet 4-28 tablets by [facility] of 00:00: mouth [place] 00 every day Medical at [address] (noon). ipratropium 3-0 Yes [id number] .5mg Inhale 2.5 [facility] 0.02 % 4-28 mL every 6 [facility] of nebulizer 00:00: (six) [place] solution 00 hours as Medical needed for Branch Wheezing or Shortness of Breath. albuterol 2022-0 Yes [id number] 2.5mg Inhale 3 [facility] 2.5 mg /3 4-28 mL every 8 [facility] of mL (0.083 00:00: (eight) [place] %) 00 hours as Medical nebulizer needed for Bran ch solution Wheezing or Shortness of Breath. atorvastati 2022-0 Yes [id number] 20mg Take 1 [facility] n 20 mg 4-28 tablet by [facility] of tablet 00:00: mouth at [place] 00 bedtime. Medical Branch losartan 50 2022-0 Yes [id number] 25mg Take 0.5 [facility] mg tablet 4-28 tablets by [facility] of 00:00: mouth [place] 00 every day Medical at [address] (noon). ipratropium 3-0 Yes [id number] .5mg Inhale 2.5 [facility] 0.02 % 4-28 mL every 6 ity of nebulizer 00:00: (six) [place] solution 00 hours as Medical needed for Branch Wheezing or Shortness of Breath. albuterol 3-0 Yes [id number] 2.5mg Inhale 3 [facility] 2.5 mg /3 4-28 mL every 8 [facility] of mL (0.083 00:00: (eight) [place] %) 00 hours as Medical nebulizer needed for Bran ch solution Wheezing or Shortness of Breath. atorvastati 2022-0 Yes [id number] 20mg Take 1 [facility] n 20 mg 4-28 tablet by [facility] of tablet 00:00: mouth at [place] 00 bedtime. Medical Branch losartan 50 2022-0 Yes [id number] 25mg Take 0.5 [facility] mg tablet 4-28 tablets by [facility] of 00:00: mouth [place] 00 every day Medical at [address] (noon). ipratropium 2023-0 Yes [id number] .5mg Inhale 2.5 [facility] 0.02 % 4-28 mL every 6 [facility] of nebulizer 00:00: (six) [place] solution 00 hours as Medical needed for Branch Wheezing or Shortness of Breath. albuterol 2023-0 Yes [id number] 2.5mg Inhale 3 [facility] 2.5 mg /3 4-28 mL every 8 [facility] of mL (0.083 00:00: (eight) [place] %) 00 hours as Medical nebulizer needed for Bran ch solution Wheezing or Shortness of Breath. atorvastati 2023-0 Yes [id number] 20mg Take 1 [facility] n 20 mg 4-28 tablet by [facility] of tablet 00:00: mouth at [place] 00 bedtime. Medical Branch losartan 50 2022-0 Yes [id number] 25mg Take 0.5 [facility] mg tablet 4-28 tablets by [facility] of 00:00: mouth [place] 00 every day Medical at [address] (noon). ipratropium 2023-0 Yes [id number] .5mg Inhale 2.5 [facility] 0.02 % 4-28 mL every 6 [facility] of nebulizer 00:00: (six) [place] solution 00 hours as Medical needed for Branch Wheezing or Shortness of Breath. albuterol 2023-0 Yes [id number] 2.5mg Inhale 3 [facility] 2.5 mg /3 4-28 mL every 8 [facility] of mL (0.083 00:00: (eight) [place] %) 00 hours as Medical nebulizer needed for Bran ch solution Wheezing or Shortness of Breath. atorvastati 3-0 Yes [id number] 20mg Take 1 [facility] n 20 mg 4-28 tablet by [facility] of tablet 00:00: mouth at [place] 00 bedtime. Medical Branch losartan 50 3-0 Yes [id number] 25mg Take 0.5 [facility] mg tablet 4-28 tablets by [facility] of 00:00: mouth [place] 00 every day Medical at [address] (noon). ipratropium 2023-0 Yes [id number] .5mg Inhale 2.5 [facility] 0.02 % 4-28 mL every 6 [facility] of nebulizer 00:00: (six) [place] solution 00 hours as Medical needed for Branch Wheezing or Shortness of Breath. albuterol 3-0 Yes [id number] 2.5mg Inhale 3 [facility] 2.5 mg /3 4-28 mL every 8 [facility] of mL (0.083 00:00: (eight) [place] %) 00 hours as Medical nebulizer needed for Bran ch solution Wheezing or Shortness of Breath. atorvastati 2022-0 Yes [id number] 20mg Take 1 [facility] n 20 mg 4-28 tablet by [facility] of tablet 00:00: mouth at [place] 00 bedtime. Medical [facility] losartan 50 2022-0 Yes [id number] 25mg Take 0.5 [facility] mg tablet 4-28 tablets by [facility] of 00:00: mouth [place] 00 every day Medical at [address] (noon). ipratropium 3-0 Yes [id number] .5mg Inhale 2.5 [facility] 0.02 % 4-28 mL every 6 [facility] of nebulizer 00:00: (six) [place] solution 00 hours as Medical needed for Branch Wheezing or Shortness of Breath. albuterol 2022-0 Yes [id number] 2.5mg Inhale 3 [facility] 2.5 mg /3 4-28 mL every 8 [facility] of mL (0.083 00:00: (eight) [place] %) 00 hours as Medical nebulizer needed for Bran ch solution Wheezing or Shortness of Breath. atorvastati 2022-0 Yes [id number] 20mg Take 1 [facility] n 20 mg 4-28 tablet by [facility] of tablet 00:00: mouth at [place] 00 bedtime. Medical Branch losartan 50 2022-0 Yes [id number] 25mg Take 0.5 [facility] mg tablet 4-28 tablets by [facility] of 00:00: mouth [place] 00 every day Medical at [address] (noon). ipratropium 3-0 Yes [id number] .5mg Inhale 2.5 [facility] 0.02 % 4-28 mL every 6 [facility] of nebulizer 00:00: (six) [place] solution 00 hours as Medical needed for Branch Wheezing or Shortness of Breath. albuterol 3-0 Yes [id number] 2.5mg Inhale 3 [facility] 2.5 mg /3 4-28 mL every 8 [facility] of mL (0.083 00:00: (eight) [place] %) 00 hours as Medical nebulizer needed for Bran ch solution Wheezing or Shortness of Breath. atorvastati 3-0 Yes [id number] 20mg Take 1 [facility] n 20 mg 4-28 tablet by [facility] of tablet 00:00: mouth at [place] 00 bedtime. Medical [facility] losartan 50 2022-0 Yes [id number] 25mg Take 0.5 [facility] mg tablet 4-28 tablets by [facility] of 00:00: mouth [place] 00 every day Medical at [address] [facility] (noon). ipratropium 2023-0 Yes [id number] .5mg Inhale 2.5 [facility] 0.02 % 4-28 mL every 6 it[facility] of nebulizer 00:00: (six) [place] solution 00 hours as Medical needed for Branch Wheezing or Shortness of Breath. albuterol 2023-0 Yes [id number] 2.5mg Inhale 3 [facility] 2.5 mg /3 4-28 mL every 8 [facility] of mL (0.083 00:00: (eight) [place] %) 00 hours as Medical nebulizer needed for Bran ch solution Wheezing or Shortness of Breath. atorvastati 3-0 Yes [id number] 20mg Take 1 [facility] n 20 mg 4-28 tablet by [facility] of tablet 00:00: mouth at [place] 00 bedtime. Medical [facility] losartan 50 2022-0 Yes [id number] 25mg Take 0.5 [facility] mg tablet 4-28 tablets by [facility] of 00:00: mouth [place] 00 every day Medical at [address] [facility] (noon). ipratropium 2023-0 Yes [id number] .5mg Inhale 2.5 [facility] 0.02 % 4-28 mL every 6 [facility] of nebulizer 00:00: (six) [place] solution 00 hours as Medical needed for Branch Wheezing or Shortness of Breath. albuterol 2023-0 Yes [id number] 2.5mg Inhale 3 [facility] 2.5 mg /3 4-28 mL every 8 [facility] of mL (0.083 00:00: (eight) [place] %) 00 hours as Medical nebulizer needed for Bran ch solution Wheezing or Shortness of Breath. atorvastati 2023-0 Yes [id number] 20mg Take 1 [facility] n 20 mg 4-28 tablet by [facility] of tablet 00:00: mouth at [place] 00 bedtime. Medical Branch losartan 50 2023-0 Yes [id number] 25mg Take 0.5 [facility] mg tablet 4-28 tablets by [facility] of 00:00: mouth [place] 00 every day Medical at [address] (noon). ipratropium 2023-0 Yes [id number] .5mg Inhale 2.5 [facility] 0.02 % 4-28 mL every 6 [facility] of nebulizer 00:00: (six) [place] solution 00 hours as Medical needed for Branch Wheezing or Shortness of Breath. albuterol 3-0 Yes [id number] 2.5mg Inhale 3 [facility] 2.5 mg /3 4-28 mL every 8 [facility] of mL (0.083 00:00: (eight) [place] %) 00 hours as Medical nebulizer needed for Bran ch solution Wheezing or Shortness of Breath. atorvastati 2022-0 Yes [id number] 20mg Take 1 [facility] n 20 mg 4-28 tablet by [facility] of tablet 00:00: mouth at [place] 00 bedtime. Medical Branch losartan 50 2022-0 Yes [id number] 25mg Take 0.5 [facility] mg tablet 4-28 tablets by [facility] of 00:00: mouth [place] 00 every day Medical at [address] (noon). ipratropium 3-0 Yes [id number] .5mg Inhale 2.5 [facility] 0.02 % 4-28 mL every 6 [facility] of nebulizer 00:00: (six) [place] solution 00 hours as Medical needed for Branch Wheezing or Shortness of Breath. albuterol 3-0 Yes [id number] 2.5mg Inhale 3 [facility] 2.5 mg /3 4-28 mL every 8 [facility] of mL (0.083 00:00: (eight) [place] %) 00 hours as Medical nebulizer needed for Bran ch solution Wheezing or Shortness of Breath. furosemide 3-0 2023- No [id number] 40mg Take 1 [facility] 40 mg 4-28 [...] 40mg Take 1 [facility] ers 40 mg 4- 04-28 tablet by [facility] of tablet 00:00: 00:00 mouth [place] 00 :00 every Medical morning Branch and evening. furosemide 2023-0 2023- No 40mg Take 1 [facility] ers 40 mg 4-27 04-28 tablet by [facility] of tablet 00:00: 00:00 mouth [place] 00 :00 every Medical morning Branch and evening. furosemide 2023-0 2023- No 40mg Take 1 [facility] ers 40 mg 4-27 -28 tablet by [facility] of tablet 00:00: 00:00 mouth [place] 00 :00 every Medical morning Branch and evening. losartan 50 2023-0 Yes 25mg Take 0.5 [facility] mg tablet 4-12 tablets by [facility] of 00:00: mouth [place] 00 every day Medical at [address] [place] [id number] (noon). losartan 50 2023-0 Yes 25mg Take 0.5 [facility] mg tablet 4-12 tablets by [facility] of 00:00: mouth [place] 00 every day Medical at [address] [place] [id number] (noon). losartan 50 2023-0 Yes 25mg Take 0.5 [facility] mg tablet 4-12 tablets by [facility] of 00:00: mouth [place] 00 every day Medical at [address] [place] [id number] (noon). losartan 50 2023-0 Yes 25mg Take 0.5 [facility] mg tablet 4-12 tablets by [facility] of 00:00: mouth [place] 00 every day Medical at [address] [place] [id number] (noon). losartan 50 2023-0 Yes 25mg Take 0.5 [facility] mg tablet 4-12 tablets by [facility] of 00:00: mouth [place] 00 every day Medical at [address] [place] [id number] (noon). losartan 50 2023-0 Yes 25mg Take 0.5 [facility] mg tablet 4-12 tablets by [facility] of 00:00: mouth [place] 00 every day Medical at [address] [place] [id number] (noon). losartan 50 2023-0 Yes 25mg Take 0.5 [facility] mg tablet 4-12 tablets by [facility] of 00:00: mouth [place] 00 every day Medical at [address] [place] [id number] (noon). losartan 50 2023-0 Yes 25mg Take 0.5 [facility] mg tablet 4-12 tablets by [facility] of 00:00: mouth [place] 00 every day Medical at [address] [place] [id number] (noon). losartan 50 2022-0 Yes 25mg Take 0.5 [facility] mg tablet 4-12 tablets by [facility] of 00:00: mouth [place] 00 every day Medical at [address] [place] [id number] (noon). losartan 50 2022-0 Yes 25mg Take 0.5 [facility] mg tablet 4-12 tablets by [facility] of 00:00: mouth [place] 00 every day Medical at [address] [place] [id number] (noon). losartan 50 2022-0 2023- No 25mg Take 0.5 [facility] mg tablet 4-28 tablets by [facility]y of 00:00: 00:00 mouth [place] 00 :00 every day Medical at [address] [place] [id number] (noon). losartan 50 2022-0 2022- No 25mg Take 0.5 [facility] mg tablet 4-28 tablets by ity of 00:00: 00:00 mouth [place] 00 :00 every day Medical at [address] [place] [id number] (noon). losartan 50 2022-0 2022- No 25mg Take 0.5 [facility] mg tablet 4-28 tablets by ity of 00:00: 00:00 mouth [place] 00 :00 every day Medical at [address] [place] [address] (noon). losartan 50 2022-0 2023- No 50mg Take 1 [facility] vers mg tablet 4-01 16-12 tablet by [facility] of 00:00: 00:00 mouth [place] 00 :00 daily. Medical Branch losartan 50 2022-0 3- No 25mg Take 0.5 [facility] nivers mg tablet 4-01 16-12 tablets by ity of 00:00: 00:00 mouth [place] 00 :00 daily. Medical [facility] losartan 50 2022-0 2023- No 50mg Take 1 [facility] vers mg tablet 4-01 16-12 tablet by ity of 00:00: 00:00 mouth [place] 00 :00 daily. Medical [facility] losartan 50 2022-0 3- No 25mg Take 0.5 [facility] nivers mg tablet 4-12 -12 tablets by ity of 00:00: 00:00 mouth [place] 00 :00 daily. Medical Branch furosemide 0 Yes [id number] 40mg Take 1 [facility] 40 mg 4-04 tablet by [facility] of tablet 00:00: mouth [place] 00 daily. Medical Branch terbinafine 0 Yes [id number] 250mg Take 1 [facility] HCL 250 mg 4-04 tablet by [facility] of tablet 00:00: mouth [place] 00 daily. Medical Branch benzonatate 2022-0 Yes [id number] 200mg Take 1 [facility] 200 mg 4-04 capsule by [facility] of capsule 00:00: mouth 3 (three) Medical times Branch daily as needed for Cough. furosemide 2022-0 Yes [id number] 40mg Take 1 [facility] 40 mg 4-04 tablet by [facility] of tablet 00:00: mouth [place] 00 daily. Medical Branch terbinafine 2022-0 Yes [id number] 250mg Take 1 [facility] HCL 250 mg 4-04 tablet by [facility] of tablet 00:00: mouth [place] 00 daily. Medical [facility] benzonatate 2022-0 Yes [id number] 200mg Take 1 [facility] 200 mg 4-04 capsule by [facility] of capsule 00:00: mouth 3 (three) Medical times Branch daily as needed for Cough. furosemide 2022-0 Yes [id number] 40mg Take 1 [facility] 40 mg 4-04 tablet by [facility] of tablet 00:00: mouth [place] 00 daily. Medical [facility] terbinafine 2022-0 Yes [id number] 250mg Take 1 [facility] HCL 250 mg 4-04 tablet by [facility] of tablet 00:00: mouth [place] 00 daily. Medical [facility] benzonatate 2022-0 Yes [id number] 200mg Take 1 [facility] 200 mg 4-04 capsule by [facility] of capsule 00:00: mouth 3 (three) Medical times Branch daily as needed for Cough. furosemide 2022-0 Yes [id number] 40mg Take 1 [facility] 40 mg 4-04 tablet by [facility] of tablet 00:00: mouth [place] 00 daily. Medical [facility] terbinafine 2022-0 Yes [id number] 250mg Take 1 [facility] HCL 250 mg 4-04 tablet by [facility] of tablet 00:00: mouth [place] 00 daily. Medical [facility] benzonatate 2022-0 Yes [id number] 200mg Take 1 [facility] 200 mg 4-04 capsule by [facility] of capsule 00:00: mouth 3 (three) Medical times Branch daily as needed for Cough. furosemide 2022-0 Yes [id number] 40mg Take 1 [facility] 40 mg 4-04 tablet by [facility] of tablet 00:00: mouth [place] 00 daily. Medical [facility] terbinafine 2022-0 Yes [id number] 250mg Take 1 [facility] HCL 250 mg 4-04 tablet by [facility] of tablet 00:00: mouth [place] 00 daily. Medical [facility] benzonatate 2022-0 Yes [id number] 200mg Take 1 [facility] 200 mg 4-04 capsule by [facility]y of capsule 00:00: mouth 3 [place] 00 (three) Medical times Branch daily as needed for Cough. furosemide 2022-0 Yes [id number] 40mg Take 1 [facility] 40 mg 4-04 tablet by [facility] of tablet 00:00: mouth [place] 00 daily. Medical [facility] terbinafine 2022-0 Yes [id number] 250mg Take 1 [facility] HCL 250 mg 4-04 tablet by [facility] of tablet 00:00: mouth [place] 00 daily. Medical [facility] benzonatate 2022-0 Yes [id number] 200mg Take 1 [facility] 200 mg 4-04 capsule by [facility] of capsule 00:00: mouth 3 (three) Medical times Branch daily as needed for Cough. furosemide 2022-0 Yes [id number] 40mg Take 1 [facility] 40 mg 4-04 tablet by [facility] of tablet 00:00: mouth [place] 00 daily. Medical [facility] terbinafine 2022-0 Yes [id number] 250mg Take 1 [facility] HCL 250 mg 4-04 tablet by [facility] of tablet 00:00: mouth [place] 00 daily. Medical [facility] benzonatate 2022-0 Yes [id number] 200mg Take 1 [facility] 200 mg 4-04 capsule by [facility] of capsule 00:00: mouth 3 (three) Medical times Branch daily as needed for Cough. furosemide 2022-0 Yes [id number] 40mg Take 1 [facility] 40 mg 4-04 tablet by [facility] of tablet 00:00: mouth [place] 00 daily. Medical [facility] terbinafine 2022-0 Yes [id number] 250mg Take 1 [facility] HCL 250 mg 4-04 tablet by [facility] of tablet 00:00: mouth [place] 00 daily. Medical [facility] benzonatate 2022-0 Yes [id number] 200mg Take 1 [facility] 200 mg 4-04 capsule by [facility] of capsule 00:00: mouth 3 00 (three) Medical times Branch daily as needed for Cough. furosemide 2022-0 Yes [id number] 40mg Take 1 [facility] 40 mg 4-04 tablet by [facility] of tablet 00:00: mouth [place] 00 daily. Medical [facility] terbinafine 2022-0 Yes [id number] 250mg Take 1 [facility] HCL 250 mg 4-04 tablet by [facility] of tablet 00:00: mouth [place] 00 daily. Medical [facility] benzonatate 2022-0 Yes [id number] 200mg Take 1 [facility] 200 mg 4-04 capsule by [facility] of capsule 00:00: mouth 3 (three) Medical times Branch daily as needed for Cough. furosemide 2022-0 Yes [id number] 40mg Take 1 [facility] 40 mg 4-04 tablet by [facility] of tablet 00:00: mouth [place] 00 daily. Medical [facility] terbinafine 2022-0 Yes [id number] 250mg Take 1 [facility] HCL 250 mg 4-04 tablet by [facility] of tablet 00:00: mouth [place] 00 daily. [facility] benzonatate 2022-0 Yes [id number] 200mg Take 1 [facility] 200 mg 4-04 capsule by [facility] of capsule 00:00: mouth (three) Medical times Branch daily as needed for Cough. terbinafine 2022-0 Yes [id number] 250mg Take 1 [facility] HCL 250 mg 4-04 tablet by [facility] of tablet 00:00: mouth 00 daily. Medical [facility] benzonatate 2022-0 Yes [id number] 200mg Take 1 [facility] 200 mg 4-04 capsule by [facility] of capsule 00:00: mouth (three) Medical times Branch daily as needed for Cough. terbinafine 2022-0 Yes [id number] 250mg Take 1 [facility] HCL 250 mg 4-04 tablet by [facility] of tablet 00:00: mouth [place] 00 daily. Medical [facility] benzonatate 2022-0 Yes [id number] 200mg Take 1 [facility] 200 mg 4-04 capsule by [facility] of capsule 00:00: mouth (three) Medical times Branch daily as needed for Cough. terbinafine 2022-0 Yes [id number] 250mg Take 1 [facility] HCL 250 mg 4-04 tablet by [facility] of tablet 00:00: mouth [place] 00 daily. Medical [facility] benzonatate 2022-0 Yes [id number] 200mg Take 1 [facility] 200 mg 4-04 capsule by [facility] of capsule 00:00: mouth 3 (three) Medical times Branch daily as needed for Cough. terbinafine 3-0 Yes [id number] 250mg Take 1 [facility] HCL 250 mg 4-04 tablet by [facility] of tablet 00:00: mouth [place] 00 daily. Medical [facility] benzonatate 3-0 Yes [id number] 200mg Take 1 [facility] 200 mg 4-04 capsule by [facility] of capsule 00:00: mouth 3 (three) Medical times Branch daily as needed for Cough. terbinafine 3-0 Yes [id number] 250mg Take 1 [facility] HCL 250 mg 4-04 tablet by [facility] of tablet 00:00: mouth 00 daily. Medical [facility] benzonatate 3-0 Yes [id number] 200mg Take 1 [facility] 200 mg 4-04 capsule by [facility] of capsule 00:00: mouth (three) Medical times Branch daily as needed for Cough. terbinafine 3-0 Yes [id number] 250mg Take 1 [facility] HCL 250 mg 4-04 tablet by [facility] of tablet 00:00: mouth 00 daily. Medical Branch benzonatate 3-0 Yes [id number] 200mg Take 1 [facility] 200 mg 4-04 capsule by [facility] of capsule 00:00: mouth (three) Medical times Branch daily as needed for Cough. terbinafine 3-0 Yes [id number] 250mg Take 1 [facility] HCL 250 mg 4-04 tablet by [facility] of tablet 00:00: mouth 00 daily. Medical Branch benzonatate 3-0 Yes [id number] 200mg Take 1 [facility] 200 mg 4-04 capsule by [facility] of capsule 00:00: mouth (three) Medical times Branch daily as needed for Cough. terbinafine 3-0 Yes [id number] 250mg Take 1 [facility] HCL 250 mg 4-04 tablet by [facility] of tablet 00:00: mouth 00 daily. Medical [facility] benzonatate 3-0 Yes [id number] 200mg Take 1 [facility] 200 mg 4-04 capsule by [facility] of capsule 00:00: mouth (three) Medical times Branch daily as needed for Cough. terbinafine 3-0 Yes [id number] 250mg Take 1 [facility] HCL 250 mg 4-04 tablet by [facility] of tablet 00:00: mouth 00 daily. Medical Branch benzonatate 2023-0 Yes [id number] 200mg Take 1 [facility] 200 mg 4-04 capsule by [facility] of capsule 00:00: mouth (three) Medical times Branch daily as needed for Cough. terbinafine 2023-0 Yes [id number] 250mg Take 1 [facility] HCL 250 mg 4-04 tablet by [facility] of tablet 00:00: mouth [place] 00 daily. Medical Branch benzonatate 3-0 Yes [id number] 200mg Take 1 [facility] 200 mg 4-04 capsule by [facility] of capsule 00:00: mouth (three) Medical times Branch daily as needed for Cough. terbinafine 3-0 Yes [id number] 250mg Take 1 [facility] HCL 250 mg 4-04 tablet by [facility] of tablet 00:00: mouth [place] 00 daily. Medical [facility] benzonatate 3-0 Yes [id number] 200mg Take 1 [facility] 200 mg 4-04 capsule by [facility] of capsule 00:00: mouth 3 (three) Medical times Branch daily as needed for Cough. terbinafine 3-0 Yes [id number] 250mg Take 1 [facility] HCL 250 mg 4-04 tablet by [facility] of tablet 00:00: mouth 00 daily. Medical Branch benzonatate 3-0 Yes [id number] 200mg Take 1 [facility] 200 mg 4-04 capsule by [facility] of capsule 00:00: mouth (three) Medical times Branch daily as needed for Cough. terbinafine 3-0 Yes [id number] 250mg Take 1 [facility] HCL 250 mg 4-04 tablet by [facility] of tablet 00:00: mouth 00 daily. Medical Branch benzonatate 3-0 Yes [id number] 200mg Take 1 [facility] 200 mg 4-04 capsule by [facility] of capsule 00:00: mouth (three) Medical times Branch daily as needed for Cough. terbinafine 2023-0 Yes [id number] 250mg Take 1 [facility] HCL 250 mg 4-04 tablet by [facility] of tablet 00:00: mouth [place] 00 daily. Medical [facility] benzonatate 3-0 Yes [id number] 200mg Take 1 [facility] 200 mg 4-04 capsule by [facility] of capsule 00:00: mouth (three) Medical times Branch daily as needed for Cough. terbinafine 2023-0 Yes [id number] 250mg Take 1 [facility] HCL 250 mg 4-04 tablet by [facility] of tablet 00:00: mouth [place] 00 daily. Medical [facility] benzonatate 2023-0 Yes [id number] 200mg Take 1 [facility] 200 mg 4-04 capsule by [facility] of capsule 00:00: mouth (three) Medical times Branch daily as needed for Cough. terbinafine 2023-0 Yes [id number] 250mg Take 1 [facility] HCL 250 mg 4-04 tablet by [facility] of tablet 00:00: mouth [place] 00 daily. Medical Branch benzonatate 2023-0 Yes [id number] 200mg Take 1 [facility] 200 mg 4-04 capsule by [facility] of capsule 00:00: mouth 3 (three) Medical times Branch daily as needed for Cough. terbinafine 2023-0 Yes [id number] 250mg Take 1 [facility] HCL 250 mg 4-04 tablet by [facility] of tablet 00:00: mouth [place] 00 daily. Medical Branch benzonatate 2023-0 Yes [id number] 200mg Take 1 [facility] 200 mg 4-04 capsule by [facility] of capsule 00:00: mouth 3 (three) Medical times Branch daily as needed for Cough. terbinafine 2023-0 Yes [id number] 250mg Take 1 [facility] HCL 250 mg 4-04 tablet by [facility] of tablet 00:00: mouth 00 daily. Medical Branch benzonatate 3-0 Yes [id number] 200mg Take 1 [facility] 200 mg 4-04 capsule by [facility] of capsule 00:00: mouth (three) Medical times Branch daily as needed for Cough. terbinafine 3-0 Yes [id number] 250mg Take 1 [facility] HCL 250 mg 4-04 tablet by [facility] of tablet 00:00: mouth [place] 00 daily. Medical Branch benzonatate 3-0 Yes [id number] 200mg Take 1 [facility] 200 mg 4-04 capsule by [facility] of capsule 00:00: mouth (three) Medical times Branch daily as needed for Cough. terbinafine 2023-0 Yes [id number] 250mg Take 1 [facility] HCL 250 mg 4-04 tablet by [facility] of tablet 00:00: mouth [place] 00 daily. Medical Branch benzonatate 2023-0 Yes [id number] 200mg Take 1 [facility] 200 mg 4-04 capsule by [facility] of capsule 00:00: mouth 3 (three) Medical times Branch daily as needed for Cough. terbinafine 2023-0 Yes [id number] 250mg Take 1 [facility] 250 mg 4-04 tablet by [facility] tablet 00:00: mouth [place] 00 daily. [facility] benzonatate 2023-0 Yes [id number] 200mg Take 1 [facility] 200 mg 4-04 capsule by [facility] capsule 00:00: mouth 3 (three) Medical times Branch daily as needed for Cough. terbinafine 2023-0 Yes [id number] 250mg Take 1 [facility] HCL 250 mg 4-04 tablet by [facility] tablet 00:00: mouth [place] 00 daily. [facility] benzonatate 2023-0 Yes [id number] 200mg Take 1 [facility] 200 mg 4-04 capsule by [facility] capsule 00:00: mouth (three) Medical times Branch daily as needed for Cough. terbinafine 2023-0 Yes [id number] 250mg Take 1 [facility] HCL 250 mg 4-04 tablet by [facility] tablet 00:00: mouth [place] 00 daily. [facility] benzonatate 3-0 Yes [id number] 200mg Take 1 [facility] 200 mg 4-04 capsule by [facility] capsule 00:00: mouth (three) Medical times Branch daily as needed for Cough. terbinafine 2023-0 Yes [id number] 250mg Take 1 [facility] HCL 250 mg 4-04 tablet by [facility] tablet 00:00: mouth 00 daily. [facility] benzonatate 3-0 Yes [id number] 200mg Take 1 [facility] 200 mg 4-04 capsule by [facility] capsule 00:00: mouth (three) Medical times Branch daily as needed for Cough. terbinafine 2023-0 Yes [id number] 250mg Take 1 [facility] HCL 250 mg 4-04 tablet by [facility] tablet 00:00: mouth 00 daily. [facility] benzonatate 2023-0 Yes [id number] 200mg Take 1 [facility] 200 mg 4-04 capsule by [facility] capsule 00:00: mouth (three) Medical times Branch daily as needed for Cough. terbinafine 2023-0 Yes [id number] 250mg Take 1 [facility] HCL 250 mg 4-04 tablet by [facility] tablet 00:00: mouth [place] 00 daily. [facility] benzonatate 2023-0 Yes [id number] 200mg Take 1 [facility] 200 mg 4-04 capsule by [facility] capsule 00:00: mouth 3 (three) Medical times Branch daily as needed for Cough. terbinafine 2023-0 Yes [id number] 250mg Take 1 [facility] HCL 250 mg 4-04 tablet by [facility] tablet 00:00: mouth 00 daily. [facility] benzonatate 2023-0 Yes [id number] 200mg Take 1 [facility] 200 mg 4-04 capsule by [facility] capsule 00:00: mouth (three) Medical times Branch daily as needed for Cough. terbinafine 2023-0 Yes [id number] 250mg Take 1 [facility] HCL 250 mg 4-04 tablet by [facility] tablet 00:00: mouth 00 daily. [facility] benzonatate 2023-0 Yes [id number] 200mg Take 1 [facility] 200 mg 4-04 capsule by [facility] capsule 00:00: mouth (three) Medical times Branch daily as needed for Cough. terbinafine 2023-0 Yes [id number] 250mg Take 1 [facility] H[facility] 250 mg 4-04 tablet by [facility] tablet 00:00: mouth 00 daily. [facility] benzonatate 3-0 Yes [id number] 200mg Take 1 [facility] 200 mg 4-04 capsule by [facility] capsule 00:00: mouth (three) Medical times Branch daily as needed for Cough. terbinafine 3-0 Yes [id number] 250mg Take 1 [facility] H[facility] 250 mg 4-04 tablet by [facility] tablet 00:00: mouth 00 daily. [facility] benzonatate 3-0 Yes [id number] 200mg Take 1 [facility] 200 mg 4-04 capsule by [facility] capsule 00:00: mouth (three) Medical times Branch daily as needed for Cough. terbinafine 2023-0 Yes [id number] 250mg Take 1 [facility] HCL 250 mg 4-04 tablet by [facility] tablet 00:00: mouth 00 daily. [facility] benzonatate 3-0 Yes [id number] 200mg Take 1 [facility] 200 mg 4-04 capsule by [facility] capsule 00:00: mouth (three) Medical times Branch daily as needed for Cough. terbinafine 2023-0 Yes [id number] 250mg Take 1 [facility] HCL 250 mg 4-04 tablet by [facility] tablet 00:00: mouth 00 daily. [facility] benzonatate 2023-0 Yes [id number] 200mg Take 1 [facility] 200 mg 4-04 capsule by [facility] capsule 00:00: mouth (three) Medical times Branch daily as needed for Cough. terbinafine 2022-0 Yes [id number] 250mg Take 1 [facility] HCL 250 mg 4-04 tablet by [facility] tablet 00:00: mouth [place] 00 daily. [facility] benzonatate 2022-0 Yes [id number] 200mg Take 1 [facility] 200 mg 4-04 capsule by [facility] capsule 00:00: mouth 3 (three) Medical times Branch daily as needed for Cough. terbinafine 2022-0 Yes [id number] 250mg Take 1 [facility] H[facility] 250 mg 4-04 tablet by [facility] tablet 00:00: mouth [place] 00 daily. [facility] benzonatate 2022-0 Yes [id number] 200mg Take 1 [facility] 200 mg 4-04 capsule by [facility] capsule 00:00: mouth 3 (three) Medical times Branch daily as needed for Cough. terbinafine 2022-0 Yes [id number] 250mg Take 1 [facility] H[facility] 250 mg 4-04 tablet by [facility] tablet 00:00: mouth 00 daily. [facility] benzonatate 2022-0 Yes [id number] 200mg Take 1 [facility] 200 mg 4-04 capsule by [facility] capsule 00:00: mouth (three) Medical times Branch daily as needed for Cough. terbinafine 2022-0 Yes [id number] 250mg Take 1 [facility] HCL 250 mg 4-04 tablet by [facility] tablet 00:00: mouth [place] 00 daily. [facility] benzonatate 2022-0 Yes [id number] 200mg Take 1 [facility] 200 mg 4-04 capsule by [facility] capsule 00:00: mouth (three) Medical times Branch daily as needed for Cough. terbinafine 2022-0 Yes [id number] 250mg Take 1 [facility] HCL 250 mg 4-04 tablet by [facility] tablet 00:00: mouth [place] 00 daily. [facility] benzonatate 2022-0 Yes [id number] 200mg Take 1 [facility] 200 mg 4-04 capsule by [facility] capsule 00:00: mouth 3 (three) Medical times Branch daily as needed for Cough. furosemide 2022-0 2022- No [id number] 40mg Take 1 [facility] 40 mg 4-04 -27 tablet by [facility] tablet 00:00: 00:00 mouth [place] 00 :00 daily. Medical [facility] furosemide 2022-0 3- No [id number] 40mg Take 1 [facility] 40 mg -05 17- tablet by [facility] tablet 00:00: 00:00 mouth [place] 00 :00 daily. [facility] Branch furosemide 2022- No TAKE 1 [facility] ers 40 mg -09 06- TABLET BY [facility] tablet 00:00: 00:00 MOUTH [place] 00 :00 TWICE Medical DAILY FOR Branch 5 DAYS THEN ONE TABLET DAILY furosemide 2022- No TAKE 1 [facility] ers 40 mg -09 06- TABLET BY [facility] tablet 00:00: 00:00 MOUTH [place] 00 :00 TWICE Medical DAILY FOR Branch 5 DAYS THEN ONE TABLET DAILY losartan 25 0 Yes [id number] 25mg Take 1 [facility] mg tablet 3-13 tablet by [facility] o f 00:00: mouth [place] 00 daily. [facility] Branch losartan 25 0 Yes [id number] 25mg Take 1 [facility] mg tablet 3-13 tablet by [facility] o f 00:00: mouth [place] 00 daily. [facility] losartan 25 0 Yes [id number] 25mg Take 1 [facility] mg tablet 3-13 tablet by [facility] o f 00:00: mouth [place] 00 daily. [facility] losartan 25 0 Yes [id number] 25mg Take 1 [facility] mg tablet 3-13 tablet by [facility] o f 00:00: mouth [place] 00 daily. [facility] losartan 25 0 Yes [id number] 25mg Take 1 [facility] mg tablet 3-13 tablet by [facility] o f 00:00: mouth [place] 00 daily. [facility] losartan 25 0 2022- No [id number] 25mg Take 1 [facility] mg tablet 3-26 05-12 tablet by [facility] of 00:00: 00:00 mouth [place] 00 :00 daily. Medical Branch losartan 25 0 2022- No [id number] 25mg Take 1 [facility] mg tablet 3-13 04-12 tablet by [facility] of 00:00: 00:00 mouth [place] 00 :00 daily. Medical Branch cefUROXime 2022-0 Yes [id number] 250mg Take 1 [facility] 250 mg 2-14 tablet by [facility] tablet 00:00: mouth 2 [place] 00 (two) Medical times Branch daily. cefUROXime 2022-0 Yes [id number] 250mg Take 1 [facility] 250 mg 2-14 tablet by [facility] tablet 00:00: mouth 2 [place] 00 (two) Medical times Branch daily. cefUROXime 2023-0 Yes [id number] 250mg Take 1 [facility] 250 mg 2-14 tablet by [facility] of tablet 00:00: mouth [address] [place] [address] 00 (two) Medical times Branch daily. cefUROXime 2023-0 Yes [id number] 250mg Take 1 [facility] 250 mg 2-14 tablet by [facility] tablet 00:00: mouth 2 [place] 00 (two) Medical times Branch daily. cefUROXime 2023-0 Yes [id number] 250mg Take 1 [facility] 250 mg 2-14 tablet by [facility] tablet 00:00: mouth 2 [place] 00 (two) Medical times Branch daily. cefUROXime 2023-0 Yes [id number] 250mg Take 1 [facility] 250 mg 2-14 tablet by [facility] tablet 00:00: mouth [address] [place] [address] (two) Medical times Branch daily. cefUROXime 2023-0 Yes [id number] 250mg Take 1 [facility] 250 mg 2-14 tablet by [facility] tablet 00:00: mouth [address] [place] [address] (two) Medical times Branch daily. cefUROXime 2023-0 Yes [id number] 250mg Take 1 [facility] 250 mg 2-14 tablet by [facility] tablet 00:00: mouth [address] [place] [address] (two) Medical times Branch daily. cefUROXime 2023-0 2023- No [id number] 250mg Take 1 [facility] 250 mg 2-14 04-04 tablet by [facility] tablet 00:00: 00:00 mouth 2 [place] 00 :00 (two) Medical times Branch daily. cefUROXime 2023-0 2023- No [id number] 250mg Take 1 [facility] 250 mg 2-14 04-04 tablet by [facility] tablet 00:00: 00:00 mouth 2 [place] 00 :00 (two) Medical times Branch daily. carvedilol 2023-0 2023- No 12.5mg Take 12.5 [facility] (COREG) 2-10 02-10 mg by [facility] 12.5 MG 10:59: 00:00 mouth of tablet 05 :00 daily. Medicin e furosemide 3-0 Yes 20mg Take 20 mg [facility] (LASIX) 20 2-10 by mouth [facility] MG tablet 10:34: daily. of Medicin e losartan 2023-0 Yes 25mg Take 25 mg [place] [facility] (COZAAR) 25 2-10 by mouth [facility] MG tablet 10:34: two times of 03 daily. Medicin e carvedilol Yes 6.25mg Take 6.25 [facility] (COREG) 2-10 mg by [place] 6.25 MG 10:34: mouth of tablet 03 daily. Medicin e famotidine 0 3- No 20mg Take 1 [place] (PEPCID) 20 2-10 05-12 Tablet by [facility] MG tablet 00:00: 04:59 mouth two of 00 :00 times Medicin daily for e 90 days. cefdinir 0 Yes [id number] 300mg Take 1 [facility] briana 300 mg 2-09 capsule by [facility] of capsule 00:00: mouth [place] 00 every 12 Medical (twelve) Branch hours. cefdinir 0 Yes [id number] 300mg Take 1 [facility] [place] 300 mg 2-09 capsule by [facility] capsule 00:00: mouth [place] 00 every 12 Medical (twelve) Branch hours. ferrous Yes [id number] 324mg Take 1 Un [place] sulfate 324 1-31 tablet by it[facility] of mg (65 mg 00:00: mouth [place] iron) EC 00 daily with Medic al tablet breakfast. Branch ferrous Yes [id number] 324mg Take 1 [facility] [place] sulfate 324 1-31 tablet by ity of mg (65 mg 00:00: mouth [place] iron) EC 00 daily with Medic al tablet breakfast. Branch ferrous 0 Yes [id number] 324mg Take 1 [facility] [place] sulfate 324 1-31 tablet by ity of mg (65 mg 00:00: mouth [place] iron) EC 00 daily with Medic al tablet breakfast. Branch ferrous 0 Yes [id number] 324mg Take 1 [facility] [place] sulfate 324 1-31 tablet by ity of mg (65 mg 00:00: mouth [place] iron) EC 00 daily with Medic al tablet breakfast. Branch ferrous 0 Yes [id number] 324mg Take 1 [facility] [place] sulfate 324 1-31 tablet by ity of mg (65 mg 00:00: mouth [place] iron) EC 00 daily with Medic al tablet breakfast. Branch ferrous 0 Yes [id number] 324mg Take 1 [facility] [place] sulfate 324 1-31 tablet by ity of mg (65 mg 00:00: mouth [place] iron) EC 00 daily with Medic al tablet breakfast. Branch ferrous 2023-0 Yes [id number] 324mg Take 1 [facility] [place] sulfate 324 1-31 tablet by ity of mg (65 mg 00:00: mouth [place] iron) EC 00 daily with Medic al tablet breakfast. Branch ferrous 3-0 Yes [id number] 324mg Take 1 [facility] [place] sulfate 324 1-31 tablet by ity of mg (65 mg 00:00: mouth [place] iron) EC 00 daily with Medic al tablet breakfast. Branch ferrous 3-0 Yes [id number] 324mg Take 1 [facility] [place] sulfate 324 1-31 tablet by ity of mg (65 mg 00:00: mouth [place] iron) EC 00 daily with Medic al tablet breakfast. Branch ferrous 2022-0 Yes [id number] 324mg Take 1 Un [place] sulfate 324 1-31 tablet by ity of mg (65 mg 00:00: mouth [place] iron) EC 00 daily with Medic al tablet breakfast. Branch ferrous 3-0 Yes [id number] 324mg Take 1 Un [place] sulfate 324 1-31 tablet by ity of mg (65 mg 00:00: mouth [place] iron) EC 00 daily with Medic al tablet breakfast. Branch ferrous 2022-0 Yes [id number] 324mg Take 1 [facility] [place] sulfate 324 1-31 tablet by ity of mg (65 mg 00:00: mouth [place] iron) EC 00 daily with Medic al tablet breakfast. Branch ferrous 2022-0 Yes [id number] 324mg Take 1 [facility] [place] sulfate 324 1-31 tablet by ity of mg (65 mg 00:00: mouth [place] iron) EC 00 daily with Medic al tablet breakfast. Branch ferrous 3-0 Yes [id number] 324mg Take 1 [facility] [place] sulfate 324 1-31 tablet by ity of mg (65 mg 00:00: mouth [place] iron) EC 00 daily with Medic al tablet breakfast. Branch ferrous 3-0 Yes [id number] 324mg Take 1 Un [place] sulfate 324 1-31 tablet by ity of mg (65 mg 00:00: mouth [place] iron) EC 00 daily with Medic al tablet breakfast. Branch ferrous 3-0 Yes [id number] 324mg Take 1 [facility] [place] sulfate 324 1-31 tablet by ity of mg (65 mg 00:00: mouth [place] iron) EC 00 daily with Medic al tablet breakfast. Branch ferrous 3-0 Yes [id number] 324mg Take 1 Un [place] sulfate 324 1-31 tablet by ity of mg (65 mg 00:00: mouth [place] iron) EC 00 daily with Medic al tablet breakfast. Branch ferrous 3-0 Yes [id number] 324mg Take 1 [facility] [place] sulfate 324 1-31 tablet by ity of mg (65 mg 00:00: mouth [place] iron) EC 00 daily with Medic al tablet breakfast. Branch ferrous 3-0 Yes [id number] 324mg Take 1 [facility] [place] sulfate 324 1-31 tablet by ity of mg (65 mg 00:00: mouth [place] iron) EC 00 daily with Medic al tablet breakfast. Branch ferrous 3-0 Yes [id number] 324mg Take 1 [facility] [place] sulfate 324 1-31 tablet by ity of mg (65 mg 00:00: mouth [place] iron) EC 00 daily with Medic al tablet breakfast. Branch ferrous 3-0 Yes [id number] 324mg Take 1 [facility] [place] sulfate 324 1-31 tablet by ity of mg (65 mg 00:00: mouth [place] iron) EC 00 daily with Medic al tablet breakfast. Branch ferrous 3-0 Yes [id number] 324mg Take 1 [facility] [place] sulfate 324 1-31 tablet by ity of mg (65 mg 00:00: mouth [place] iron) EC 00 daily with Medic al tablet breakfast. Branch ferrous 3-0 Yes [id number] 324mg Take 1 [facility] [place] sulfate 324 1-31 tablet by ity of mg (65 mg 00:00: mouth [place] iron) EC 00 daily with Medic al tablet breakfast. Branch ferrous 3-0 Yes [id number] 324mg Take 1 [facility] [place] sulfate 324 1-31 tablet by ity of mg (65 mg 00:00: mouth [place] iron) EC 00 daily with Medic al tablet breakfast. Branch ferrous 3-0 Yes [id number] 324mg Take 1 Un [place] sulfate 324 1-31 tablet by ity of mg (65 mg 00:00: mouth [place] iron) EC 00 daily with Medic al tablet breakfast. Branch ferrous 3-0 Yes [id number] 324mg Take 1 [facility] [place] sulfate 324 1-31 tablet by ity of mg (65 mg 00:00: mouth [place] iron) EC 00 daily with Medic al tablet breakfast. Branch ferrous 3-0 Yes [id number] 324mg Take 1 [facility] [place] sulfate 324 1-31 tablet by ity of mg (65 mg 00:00: mouth [place] iron) EC 00 daily with Medic al tablet breakfast. Branch ferrous 3-0 Yes [id number] 324mg Take 1 [facility] [place] sulfate 324 1-31 tablet by ity of mg (65 mg 00:00: mouth [place] iron) EC 00 daily with Medic al tablet breakfast. Branch ferrous 3-0 Yes [id number] 324mg Take 1 [facility] [place] sulfate 324 1-31 tablet by ity of mg (65 mg 00:00: mouth [place] iron) EC 00 daily with Medic al tablet breakfast. Branch ferrous 3-0 Yes [id number] 324mg Take 1 Un [place] sulfate 324 1-31 tablet by ity of mg (65 mg 00:00: mouth [place] iron) EC 00 daily with Medic al tablet breakfast. Branch ferrous 3-0 Yes [id number] 324mg Take 1 [facility] [place] sulfate 324 1-31 tablet by ity of mg (65 mg 00:00: mouth [place] iron) EC 00 daily with Medic al tablet breakfast. Branch ferrous 3-0 Yes [id number] 324mg Take 1 [facility] [place] sulfate 324 1-31 tablet by ity of mg (65 mg 00:00: mouth [place] iron) EC 00 daily with Medic al tablet breakfast. Branch ferrous 3-0 Yes [id number] 324mg Take 1 Un [place] sulfate 324 1-31 tablet by ity of mg (65 mg 00:00: mouth [place] iron) EC 00 daily with Medic al tablet breakfast. Branch ferrous 3-0 Yes [id number] 324mg Take 1 Un [place] sulfate 324 1-31 tablet by ity of mg (65 mg 00:00: mouth [place] iron) EC 00 daily with Medic al tablet breakfast. Branch ferrous 3-0 Yes [id number] 324mg Take 1 [facility] [place] sulfate 324 1-31 tablet by ity of mg (65 mg 00:00: mouth [place] iron) EC 00 daily with Medic al tablet breakfast. Branch ferrous 3-0 Yes [id number] 324mg Take 1 [facility] [place] sulfate 324 1-31 tablet by ity of mg (65 mg 00:00: mouth [place] iron) EC 00 daily with Medic al tablet breakfast. Branch ferrous 3-0 Yes [id number] 324mg Take 1 Un [place] sulfate 324 1-31 tablet by ity of mg (65 mg 00:00: mouth [place] iron) EC 00 daily with Medic al tablet breakfast. Branch ferrous 3-0 Yes [id number] 324mg Take 1 [facility] [place] sulfate 324 1-31 tablet by ity of mg (65 mg 00:00: mouth [place] iron) EC 00 daily with Medic al tablet breakfast. Branch ferrous 3-0 Yes [id number] 324mg Take 1 [facility] [place] sulfate 324 1-31 tablet by ity of mg (65 mg 00:00: mouth [place] iron) EC 00 daily with Medic al tablet breakfast. Branch ferrous 3-0 Yes [id number] 324mg Take 1 Un [place] sulfate 324 1-31 tablet by ity of mg (65 mg 00:00: mouth [place] iron) EC 00 daily with Medic al tablet breakfast. Branch ferrous 3-0 Yes [id number] 324mg Take 1 Un [place] sulfate 324 1-31 tablet by ity of mg (65 mg 00:00: mouth [place] iron) EC 00 daily with Medic al tablet breakfast. Branch ferrous 2022-0 Yes [id number] 324mg Take 1 Un [place] sulfate 324 1-31 tablet by ity of mg (65 mg 00:00: mouth [place] iron) EC 00 daily with Medic al tablet breakfast. Branch ferrous 2022-0 Yes [id number] 324mg Take 1 Un [place] sulfate 324 1-31 tablet by ity of mg (65 mg 00:00: mouth [place] iron) EC 00 daily with Medic al tablet breakfast. Branch ferrous 3-0 Yes [id number] 324mg Take 1 Un [place] sulfate 324 1-31 tablet by ity of mg (65 mg 00:00: mouth [place] iron) EC 00 daily with Medic al tablet breakfast. Branch ferrous 3-0 Yes [id number] 324mg Take 1 Un [place] sulfate 324 1-31 tablet by ity of mg (65 mg 00:00: mouth [place] iron) EC 00 daily with Medic al tablet breakfast. Branch ferrous 3-0 Yes [id number] 324mg Take 1 Un [place] sulfate 324 1-31 tablet by ity of mg (65 mg 00:00: mouth [place] iron) EC 00 daily with Medic al tablet breakfast. Branch ferrous 3-0 Yes [id number] 324mg Take 1 Un [place] sulfate 324 1-31 tablet by ity of mg (65 mg 00:00: mouth [place] iron) EC 00 daily with Medic al tablet breakfast. Branch ferrous 2023-0 Yes [id number] 324mg Take 1 Un [place] sulfate 324 1-31 tablet by ity of mg (65 mg 00:00: mouth [place] iron) EC 00 daily with Medic al tablet breakfast. Branch ferrous 3-0 Yes [id number] 324mg Take 1 Un [place] sulfate 324 1-31 tablet by ity of mg (65 mg 00:00: mouth [place] iron) EC 00 daily with Medic al tablet breakfast. Branch ferrous 3-0 Yes [id number] 324mg Take 1 Un [place] sulfate 324 1-31 tablet by ity of mg (65 mg 00:00: mouth [place] iron) EC 00 daily with Medic al tablet breakfast. Branch ferrous 2022-0 Yes [id number] 324mg Take 1 Un [place] sulfate 324 1-31 tablet by ity of mg (65 mg 00:00: mouth [place] iron) EC 00 daily with Medic al tablet breakfast. Branch ferrous 2022-0 Yes [id number] 324mg Take 1 Un [place] sulfate 324 1-31 tablet by ity of mg (65 mg 00:00: mouth [place] iron) EC 00 daily with Medic al tablet breakfast. Branch ferrous 2022-0 Yes [id number] 324mg Take 1 Un [place] sulfate 324 1-31 tablet by ity of mg (65 mg 00:00: mouth [place] iron) EC 00 daily with Medic al tablet breakfast. Branch ferrous 3-0 Yes [id number] 324mg Take 1 Un [place] sulfate 324 1-31 tablet by ity of mg (65 mg 00:00: mouth [place] iron) EC 00 daily with Medic al tablet breakfast. Branch ferrous 3-0 Yes [id number] 324mg Take 1 Un [place] sulfate 324 1-31 tablet by ity of mg (65 mg 00:00: mouth [place] iron) EC 00 daily with Medic al tablet breakfast. Branch ferrous 3-0 Yes [id number] 324mg Take 1 Un [place] sulfate 324 1-31 tablet by ity of mg (65 mg 00:00: mouth [place] iron) EC 00 daily with Medic al tablet breakfast. Branch ferrous 3-0 Yes [id number] 324mg Take 1 Un [place] sulfate 324 1-31 tablet by ity of mg (65 mg 00:00: mouth [place] iron) EC 00 daily with Medic al tablet breakfast. Branch ferrous 3-0 Yes [id number] 324mg Take 1 Un [place] sulfate 324 1-31 tablet by ity of mg (65 mg 00:00: mouth [place] iron) EC 00 daily with Medic al tablet breakfast. Branch ferrous 2022-0 Yes [id number] 324mg Take 1 Un [place] sulfate 324 1-31 tablet by ity of mg (65 mg 00:00: mouth [place] iron) EC 00 daily with Medic al tablet breakfast. Branch losartan 50 2022-0 Yes [id number] 50mg Take 1 [facility] mg tablet 1-27 tablet by ity o f 00:00: mouth [place] 00 daily. Medical Branch furosemide 2022-0 Yes [id number] 20mg Take 1 U nivers 20 mg 1-27 tablet by ity of tablet 00:00: mouth [place] 00 daily. Medical Branch losartan 50 2022-0 Yes [id number] 50mg Take 1 [facility] mg tablet 1-27 tablet by ity o f 00:00: mouth [place] 00 daily. Medical Branch furosemide 2022-0 Yes [id number] 20mg Take 1 U nivers 20 mg 1-27 tablet by ity of tablet 00:00: mouth [place] 00 daily. Medical Branch losartan 50 2022-0 Yes [id number] 50mg Take 1 [facility] mg tablet 1-27 tablet by ity o f 00:00: mouth [place] 00 daily. Medical Branch furosemide 2022-0 Yes [id number] 20mg Take 1 U nivers 20 mg 1-27 tablet by ity of tablet 00:00: mouth [place] 00 daily. Medical Branch losartan 50 2022-0 Yes [id number] 50mg Take 1 [facility] mg tablet 1-27 tablet by ity o f 00:00: mouth [place] 00 daily. Medical Branch furosemide 2022-0 Yes [id number] 20mg Take 1 U nivers 20 mg 1-27 tablet by ity of tablet 00:00: mouth [place] 00 daily. Medical Branch losartan 50 2022-0 Yes [id number] 50mg Take 1 [facility] mg tablet 1-27 tablet by ity o f 00:00: mouth [place] 00 daily. Medical Branch furosemide 2022-0 Yes [id number] 20mg Take 1 U nivers 20 mg 1-27 tablet by ity of tablet 00:00: mouth [place] 00 daily. Medical Branch losartan 50 2022-0 Yes [id number] 50mg Take 1 [facility] mg tablet 1-27 tablet by ity o f 00:00: mouth [place] 00 daily. Medical Branch furosemide 2022-0 Yes [id number] 20mg Take 1 U nivers 20 mg 1-27 tablet by ity of tablet 00:00: mouth [place] 00 daily. Medical Branch losartan 50 2022-0 Yes [id number] 50mg Take 1 [facility] mg tablet 1-27 tablet by ity o f 00:00: mouth [place] 00 daily. Medical Branch furosemide 3-0 Yes [id number] 20mg Take 1 U nivers 20 mg 1-27 tablet by ity of tablet 00:00: mouth [place] 00 daily. Medical Branch losartan 50 2022-0 Yes [id number] 50mg Take 1 [facility] mg tablet 1-27 tablet by ity o f 00:00: mouth [place] 00 daily. Medical Branch furosemide 2022-0 Yes [id number] 20mg Take 1 U nivers 20 mg 1-27 tablet by ity of tablet 00:00: mouth [place] 00 daily. Medical Branch losartan 50 2022-0 Yes [id number] 50mg Take 1 [facility] mg tablet 1-27 tablet by ity o f 00:00: mouth [place] 00 daily. Medical Branch furosemide 2022-0 Yes [id number] 20mg Take 1 U nivers 20 mg 1-27 tablet by ity of tablet 00:00: mouth [place] 00 daily. Medical Branch losartan 50 2022-0 Yes [id number] 50mg Take 1 [facility] mg tablet 1-27 tablet by ity o f 00:00: mouth [place] 00 daily. Medical Branch furosemide 2022-0 Yes [id number] 20mg Take 1 [facility] nivers 20 mg 1-27 tablet by ity of tablet 00:00: mouth [place] 00 daily. Medical Branch losartan 50 2022-0 Yes [id number] 50mg Take 1 [facility] mg tablet 1-27 tablet by ity o f 00:00: mouth [place] 00 daily. Medical Branch furosemide 3-0 Yes [id number] 20mg Take 1 [facility] nivers 20 mg 1-27 tablet by ity of tablet 00:00: mouth [place] 00 daily. Medical Branch losartan 50 2022-0 Yes [id number] 50mg Take 1 [facility] mg tablet 1-27 tablet by ity o f 00:00: mouth [place] 00 daily. Medical Branch furosemide 3-0 Yes [id number] 20mg Take 1 [facility] nivers 20 mg 1-27 tablet by ity of tablet 00:00: mouth [place] 00 daily. Medical Branch losartan 50 2022-0 Yes [id number] 50mg Take 1 [facility] mg tablet 1-27 tablet by ity o f 00:00: mouth [place] 00 daily. Medical Branch furosemide 3-0 Yes [id number] 20mg Take 1 U nivers 20 mg 1-27 tablet by ity of tablet 00:00: mouth [place] 00 daily. Medical Branch losartan 50 2022-0 Yes [id number] 50mg Take 1 [facility] mg tablet 1-27 tablet by ity o f 00:00: mouth [place] 00 daily. Medical Branch furosemide 3-0 Yes [id number] 20mg Take 1 [facility] nivers 20 mg 1-27 tablet by ity of tablet 00:00: mouth [place] 00 daily. Medical Branch losartan 50 2022-0 Yes [id number] 50mg Take 1 [facility] mg tablet 1-27 tablet by ity o f 00:00: mouth [place] 00 daily. Medical Branch furosemide 2022-0 Yes [id number] 20mg Take 1 [facility] nivers 20 mg 1-27 tablet by ity of tablet 00:00: mouth [place] 00 daily. Medical Branch losartan 50 2022-0 Yes [id number] 50mg Take 1 [facility] mg tablet 1-27 tablet by ity o f 00:00: mouth [place] 00 daily. Medical Branch furosemide 2022-0 Yes [id number] 20mg Take 1 [facility] nivers 20 mg 1-27 tablet by ity of tablet 00:00: mouth [place] 00 daily. Medical Branch furosemide 3-0 Yes [id number] 20mg Take 1 [facility] nivers 20 mg 1-27 tablet by ity of tablet 00:00: mouth [place] 00 daily. Medical Branch furosemide 3-0 Yes [id number] 20mg Take 1 [facility] nivers 20 mg 1-27 tablet by ity of tablet 00:00: mouth [place] 00 daily. Medical Branch furosemide 3-0 Yes [id number] 20mg Take 1 [facility] nivers 20 mg 1-27 tablet by ity of tablet 00:00: mouth [place] 00 daily. Medical Branch furosemide 2023-0 2023- No [id number] 20mg Take 1 [facility] 20 mg 1-27 04-04 tablet by ity of tablet 00:00: 00:00 mouth [place] 00 :00 daily. Medical Branch furosemide 2023-0 2023- No [id number] 20mg Take 1 [facility] 20 mg 1-27 04-04 tablet by ity of tablet 00:00: 00:00 mouth [place] 00 :00 daily. Medical [facility] losartan 50 2022-0 2023- No [id number] 50mg Take 1 [facility] mg tablet 03-11-13 tablet by [facility] 00:00: 00:00 mouth [place] 00 :00 daily. [facility] carvediloL 2021-02 Yes [id number] 6.25mg Take 1 [facility] 6.25 mg 2-09 tablet by [facility] tablet 00:00: mouth 2 [place] 00 (two) Medical times [facility] daily with meals. atorvastati 2021-02 Yes [id number] 20mg Take 1 [facility] n 20 mg 2-09 tablet by [facility] tablet 00:00: mouth at [place] 00 bedtime. [facility] omeprazole 2021-02 Yes [id number] 1{tbl} Take 1 [facility] 20 mg TbLD 2-09 tablet by [facility] 00:00: mouth [place] 00 daily. [facility] tolterodine 2021-02 Yes [id number] 2mg Take 1 [facility] [place] 2 mg 24 2-09 capsule by [facility] hr capsule 00:00: mouth [place] 00 daily. [facility] carvediloL 2021-02 Yes [id number] 6.25mg Take 1 [facility] 6.25 mg 2-09 tablet by [facility] tablet 00:00: mouth 2 00 (two) [facility] times [facility] daily with meals. atorvastati 2021-02 Yes [id number] 20mg Take 1 [facility] n 20 mg 2-09 tablet by [facility] tablet 00:00: mouth at [place] 00 bedtime. [facility] omeprazole 2021-02 Yes [id number] 1{tbl} Take 1 [facility] 20 mg TbLD 2-09 tablet by [facility] 00:00: mouth [place] 00 daily. [facility] tolterodine 2021-02 Yes [id number] 2mg Take 1 [facility] [place] 2 mg 24 2-09 capsule by [facility] hr capsule 00:00: mouth [place] 00 daily. [facility] carvediloL 2021-02 Yes [id number] 6.25mg Take 1 [facility] 6.25 mg 2-09 tablet by [facility] tablet 00:00: mouth 2 [place] 00 (two) [facility] times [facility] daily with meals. atorvastati 2021-02 Yes [id number] 20mg Take 1 [facility] n 20 mg 2-09 tablet by [facility] tablet 00:00: mouth at [place] 00 bedtime. [facility] omeprazole 2021-02 Yes [id number] 1{tbl} Take 1 [facility] 20 mg TbLD 2-09 tablet by [facility] 00:00: mouth [place] 00 daily. [facility] tolterodine 2021-02 Yes [id number] 2mg Take 1 [facility] [place] 2 mg 24 2-09 capsule by [facility] hr capsule 00:00: mouth [place] 00 daily. [facility] carvediloL 2021-02 Yes [id number] 6.25mg Take 1 [facility] 6.25 mg 2-09 tablet by [facility] tablet 00:00: mouth 2 00 (two) [facility] times [facility] daily with meals. atorvastati 2021-02 Yes [id number] 20mg Take 1 [facility] n 20 mg 2-09 tablet by [facility] tablet 00:00: mouth at [place] 00 bedtime. [facility] omeprazole 2021-02 Yes [id number] 1{tbl} Take 1 [facility] 20 mg TbLD 2-09 tablet by [facility] 00:00: mouth [place] 00 daily. [facility] tolterodine 2021-02 Yes [id number] 2mg Take 1 [facility] [place] 2 mg 24 2-09 capsule by [facility] hr capsule 00:00: mouth [place] 00 daily. [facility] carvediloL 2021-02 Yes [id number] 6.25mg Take 1 [facility] 6.25 mg 2-09 tablet by [facility] tablet 00:00: mouth (two) [facility] times [facility] daily with meals. atorvastati 2021-02 Yes [id number] 20mg Take 1 [facility] n 20 mg 2-09 tablet by [facility] tablet 00:00: mouth at [place] 00 bedtime. [facility] omeprazole 2021-02 Yes [id number] 1{tbl} Take 1 [facility] 20 mg TbLD 2-09 tablet by [facility] 00:00: mouth [place] 00 daily. [facility] tolterodine 2021-02 Yes [id number] 2mg Take 1 [facility] [place] 2 mg 24 2-09 capsule by [facility] hr capsule 00:00: mouth [place] 00 daily. [facility] carvediloL 2021-02 Yes [id number] 6.25mg Take 1 [facility] 6.25 mg 2-09 tablet by [facility] tablet 00:00: mouth 2 00 (two) [facility] times [facility] daily with meals. atorvastati 2021-02 Yes [id number] 20mg Take 1 [facility] n 20 mg 2-09 tablet by [facility] tablet 00:00: mouth at [place] 00 bedtime. [facility] omeprazole 2021-02 Yes [id number] 1{tbl} Take 1 [facility] 20 mg TbLD 2-09 tablet by [facility] 00:00: mouth [place] 00 daily. [facility] tolterodine 2021-02 Yes [id number] 2mg Take 1 [facility] [place] 2 mg 24 2-09 capsule by [facility] hr capsule 00:00: mouth [place] 00 daily. [facility] carvediloL 2021-02 Yes [id number] 6.25mg Take 1 [facility] 6.25 mg 2-09 tablet by [facility] tablet 00:00: mouth 2 (two) [facility] times [facility] daily with meals. atorvastati 2021-02 Yes [id number] 20mg Take 1 [facility] n 20 mg 2-09 tablet by [facility] tablet 00:00: mouth at [place] 00 bedtime. [facility] omeprazole 2021-02 Yes [id number] 1{tbl} Take 1 [facility] 20 mg TbLD 2-09 tablet by [facility] 00:00: mouth [place] 00 daily. [facility] tolterodine 2021-02 Yes [id number] 2mg Take 1 [facility] [place] 2 mg 24 2-09 capsule by [facility] hr capsule 00:00: mouth [place] 00 daily. [facility] carvediloL 2021-02 Yes [id number] 6.25mg Take 1 [facility] 6.25 mg 2-09 tablet by [facility] tablet 00:00: mouth (two) [facility] times [facility] daily with meals. atorvastati 2021-02 Yes [id number] 20mg Take 1 [facility] n 20 mg 2-09 tablet by [facility] tablet 00:00: mouth at [place] 00 bedtime. [facility] omeprazole 2021-02 Yes [id number] 1{tbl} Take 1 [facility] 20 mg TbLD 2-09 tablet by [facility] 00:00: mouth [place] 00 daily. [facility] tolterodine 2021-02 Yes [id number] 2mg Take 1 [facility] [place] 2 mg 24 2-09 capsule by [facility] hr capsule 00:00: mouth [place] 00 daily. [facility] carvediloL 2021-02 Yes [id number] 6.25mg Take 1 [facility] 6.25 mg 2-09 tablet by [facility] tablet 00:00: mouth 2 (two) [facility] times [facility] daily with meals. atorvastati 2021-02 Yes [id number] 20mg Take 1 [facility] n 20 mg 2-09 tablet by [facility] tablet 00:00: mouth at [place] 00 bedtime. [facility] omeprazole 2021-02 Yes [id number] 1{tbl} Take 1 [facility] 20 mg TbLD 2-09 tablet by [facility] 00:00: mouth [place] 00 daily. [facility] tolterodine 2021-02 Yes [id number] 2mg Take 1 [facility] [place] 2 mg 24 2-09 capsule by [facility] hr capsule 00:00: mouth [place] 00 daily. [facility] carvediloL 2021-02 Yes [id number] 6.25mg Take 1 [facility] 6.25 mg 2-09 tablet by [facility] tablet 00:00: mouth 2 00 (two) [facility] times [facility] daily with meals. atorvastati 2021-02 Yes [id number] 20mg Take 1 [facility] n 20 mg 2-09 tablet by [facility] tablet 00:00: mouth at [place] 00 bedtime. [facility] omeprazole 2021-02 Yes [id number] 1{tbl} Take 1 [facility] 20 mg TbLD 2-09 tablet by [facility] 00:00: mouth [place] 00 daily. [facility] tolterodine 2021-02 Yes [id number] 2mg Take 1 [facility] [place] 2 mg 24 2-09 capsule by [facility] hr capsule 00:00: mouth [place] 00 daily. [facility] carvediloL 2021-02 Yes [id number] 6.25mg Take 1 [facility] 6.25 mg 2-09 tablet by [facility] tablet 00:00: mouth 2 00 (two) [facility] times [facility] daily with meals. atorvastati 2021-02 Yes [id number] 20mg Take 1 [facility] n 20 mg 2-09 tablet by [facility] tablet 00:00: mouth at [place] 00 bedtime. [facility] omeprazole 2021-02 Yes [id number] 1{tbl} Take 1 [facility] 20 mg TbLD 2-09 tablet by [facility] 00:00: mouth [place] 00 daily. [facility] tolterodine 2021-02 Yes [id number] 2mg Take 1 [facility] [place] 2 mg 24 2-09 capsule by [facility] hr capsule 00:00: mouth [place] 00 daily. [facility] carvediloL 2021-02 Yes [id number] 6.25mg Take 1 [facility] 6.25 mg 2-09 tablet by [facility] tablet 00:00: mouth 2 (two) [facility] times [facility] daily with meals. atorvastati 2021-02 Yes [id number] 20mg Take 1 [facility] n 20 mg 2-09 tablet by [facility] tablet 00:00: mouth at [place] 00 bedtime. [facility] omeprazole 2021-02 Yes [id number] 1{tbl} Take 1 [facility] 20 mg TbLD 2-09 tablet by [facility] 00:00: mouth [place] 00 daily. [facility] tolterodine 2021-02 Yes [id number] 2mg Take 1 [facility] [place] 2 mg 24 2-09 capsule by [facility] hr capsule 00:00: mouth [place] 00 daily. [facility] carvediloL 2021-02 Yes [id number] 6.25mg Take 1 [facility] 6.25 mg 2-09 tablet by [facility] tablet 00:00: mouth 2 (two) [facility] times [facility] daily with meals. atorvastati 2021-02 Yes [id number] 20mg Take 1 [facility] n 20 mg 2-09 tablet by [facility] tablet 00:00: mouth at [place] 00 bedtime. [facility] omeprazole 2021-02 Yes [id number] 1{tbl} Take 1 [facility] 20 mg TbLD 2-09 tablet by [facility] 00:00: mouth [place] 00 daily. [facility] tolterodine 2021-02 Yes [id number] 2mg Take 1 [facility] [place] 2 mg 24 2-09 capsule by [facility] hr capsule 00:00: mouth [place] 00 daily. [facility] carvediloL 2021-02 Yes [id number] 6.25mg Take 1 [facility] 6.25 mg 2-09 tablet by [facility] tablet 00:00: mouth (two) [facility] times [facility] daily with meals. atorvastati 2021-02 Yes [id number] 20mg Take 1 [facility] n 20 mg 2-09 tablet by [facility] tablet 00:00: mouth at [place] 00 bedtime. [facility] omeprazole 2021-02 Yes [id number] 1{tbl} Take 1 [facility] 20 mg TbLD 2-09 tablet by [facility] 00:00: mouth [place] 00 daily. [facility] tolterodine 2021-02 Yes [id number] 2mg Take 1 [facility] [place] 2 mg 24 2-09 capsule by [facility] hr capsule 00:00: mouth [place] 00 daily. [facility] carvediloL 2021-02 Yes [id number] 6.25mg Take 1 [facility] 6.25 mg 2-09 tablet by [facility] tablet 00:00: mouth 2 (two) [facility] times [facility] daily with meals. atorvastati 2021-02 Yes [id number] 20mg Take 1 [facility] n 20 mg 2-09 tablet by [facility] tablet 00:00: mouth at [place] 00 bedtime. [facility] omeprazole 2021-02 Yes [id number] 1{tbl} Take 1 [facility] 20 mg TbLD 2-09 tablet by [facility] 00:00: mouth [place] 00 daily. [facility] tolterodine 2021-02 Yes [id number] 2mg Take 1 [facility] [place] 2 mg 24 2-09 capsule by [facility] hr capsule 00:00: mouth [place] 00 daily. [facility] carvediloL 2021-02 Yes [id number] 6.25mg Take 1 [facility] 6.25 mg 2-09 tablet by [facility] tablet 00:00: mouth 2 00 (two) [facility] times [facility] daily with meals. atorvastati 2021-02 Yes [id number] 20mg Take 1 [facility] n 20 mg 2-09 tablet by [facility] tablet 00:00: mouth at [place] 00 bedtime. [facility] omeprazole 2021-02 Yes [id number] 1{tbl} Take 1 [facility] 20 mg TbLD 2-09 tablet by [facility] 00:00: mouth [place] 00 daily. [facility] tolterodine 2021-02 Yes [id number] 2mg Take 1 [facility] [place] 2 mg 24 2-09 capsule by [facility] hr capsule 00:00: mouth [place] 00 daily. [facility] carvediloL 2021-02 Yes [id number] 6.25mg Take 1 [facility] 6.25 mg 2-09 tablet by [facility] tablet 00:00: mouth 2 [place] 00 (two) [facility] times [facility] daily with meals. atorvastati 2021-02 Yes [id number] 20mg Take 1 [facility] n 20 mg 2-09 tablet by [facility] tablet 00:00: mouth at [place] 00 bedtime. [facility] omeprazole 2021-02 Yes [id number] 1{tbl} Take 1 [facility] 20 mg TbLD 2-09 tablet by [facility] 00:00: mouth [place] 00 daily. [facility] tolterodine 2021-02 Yes [id number] 2mg Take 1 [facility] [place] 2 mg 24 2-09 capsule by [facility] hr capsule 00:00: mouth [place] 00 daily. [facility] carvediloL 2021-02 Yes [id number] 6.25mg Take 1 [facility] 6.25 mg 2-09 tablet by [facility] tablet 00:00: mouth 2 (two) [facility] times [facility] daily with meals. atorvastati 2021-02 Yes [id number] 20mg Take 1 [facility] n 20 mg 2-09 tablet by [facility] tablet 00:00: mouth at 00 bedtime. [facility] tolterodine 2021-02 Yes [id number] 2mg Take 1 [facility] [place] 2 mg 24 2-09 capsule by [facility] hr capsule 00:00: mouth 00 daily. [facility] carvediloL 2021-02 Yes [id number] 6.25mg Take 1 [facility] 6.25 mg 2-09 tablet by [facility] tablet 00:00: mouth 2 (two) [facility] times [facility] daily with meals. atorvastati 2021-02 Yes [id number] 20mg Take 1 [facility] n 20 mg 2-09 tablet by [facility] tablet 00:00: mouth at 00 bedtime. [facility] tolterodine 2021-02 Yes [id number] 2mg Take 1 [facility] [place] 2 mg 24 2-09 capsule by [facility] hr capsule 00:00: mouth 00 daily. [facility] carvediloL 2021-02 Yes [id number] 6.25mg Take 1 [facility] 6.25 mg 2-09 tablet by [facility] tablet 00:00: mouth 2 (two) [facility] times [facility] daily with meals. atorvastati 2021-02 Yes [id number] 20mg Take 1 [facility] n 20 mg 2-09 tablet by [facility] tablet 00:00: mouth at [place] 00 bedtime. [facility] tolterodine 2021-02 Yes [id number] 2mg Take 1 [facility] [place] 2 mg 24 2-09 capsule by [facility] hr capsule 00:00: mouth 00 daily. [facility] carvediloL 2021-02 Yes [id number] 6.25mg Take 1 [facility] 6.25 mg 2-09 tablet by [facility] tablet 00:00: mouth 2 00 (two) [facility] times [facility] daily with meals. atorvastati 2021-02 Yes [id number] 20mg Take 1 [facility] n 20 mg 2-09 tablet by [facility] tablet 00:00: mouth at [place] 00 bedtime. [facility] tolterodine 2021-02 Yes [id number] 2mg Take 1 [facility] [place] 2 mg 24 2-09 capsule by [facility] hr capsule 00:00: mouth [place] 00 daily. [facility] carvediloL 2021-02 Yes [id number] 6.25mg Take 1 [facility] 6.25 mg 2-09 tablet by [facility] tablet 00:00: mouth 2 (two) [facility] times [facility] daily with meals. atorvastati 2021-02 Yes [id number] 20mg Take 1 [facility] n 20 mg 2-09 tablet by [facility] tablet 00:00: mouth at [place] 00 bedtime. [facility] tolterodine 2021-02 Yes [id number] 2mg Take 1 [facility] [place] 2 mg 24 2-09 capsule by [facility] hr capsule 00:00: mouth 00 daily. [facility] carvediloL 2021-02 Yes [id number] 6.25mg Take 1 [facility] 6.25 mg 2-09 tablet by [facility] tablet 00:00: mouth 2 (two) [facility] times [facility] daily with meals. atorvastati 2021-02 Yes [id number] 20mg Take 1 [facility] n 20 mg 2-09 tablet by [facility] tablet 00:00: mouth at [place] 00 bedtime. [facility] tolterodine 2021-02 Yes [id number] 2mg Take 1 [facility] [place] 2 mg 24 2-09 capsule by [facility] hr capsule 00:00: mouth 00 daily. [facility] carvediloL 2021-02 Yes [id number] 6.25mg Take 1 [facility] 6.25 mg 2-09 tablet by [facility] tablet 00:00: mouth 2 (two) [facility] times [facility] daily with meals. atorvastati 2021-02 Yes [id number] 20mg Take 1 [facility] n 20 mg 2-09 tablet by [facility] tablet 00:00: mouth at [place] 00 bedtime. [facility] tolterodine 2021-02 Yes [id number] 2mg Take 1 [facility] [place] 2 mg 24 2-09 capsule by [facility] hr capsule 00:00: mouth 00 daily. [facility] carvediloL 2021-02 Yes [id number] 6.25mg Take 1 [facility] 6.25 mg 2-09 tablet by [facility] tablet 00:00: mouth 2 (two) [facility] times [facility] daily with meals. atorvastati 2021-02 Yes [id number] 20mg Take 1 [facility] n 20 mg 2-09 tablet by [facility] tablet 00:00: mouth at [place] 00 bedtime. [facility] tolterodine 2021-02 Yes [id number] 2mg Take 1 [facility] [place] 2 mg 24 2-09 capsule by [facility] hr capsule 00:00: mouth [place] 00 daily. [facility] carvediloL 2021-02 Yes [id number] 6.25mg Take 1 [facility] 6.25 mg 2-09 tablet by [facility] tablet 00:00: mouth 2 00 (two) [facility] times [facility] daily with meals. atorvastati 2021-02 Yes [id number] 20mg Take 1 [facility] n 20 mg 2-09 tablet by [facility] tablet 00:00: mouth at [place] 00 bedtime. [facility] tolterodine 2021-02 Yes [id number] 2mg Take 1 [facility] [place] 2 mg 24 2-09 capsule by [facility] hr capsule 00:00: mouth [place] 00 daily. [facility] carvediloL 2021-02 Yes [id number] 6.25mg Take 1 [facility] 6.25 mg 2-09 tablet by [facility] tablet 00:00: mouth 2 00 (two) [facility] times [facility] daily with meals. atorvastati 2021-02 Yes [id number] 20mg Take 1 [facility] n 20 mg 2-09 tablet by [facility] tablet 00:00: mouth at [place] 00 bedtime. [facility] tolterodine 2021-02 Yes [id number] 2mg Take 1 [facility] [place] 2 mg 24 2-09 capsule by [facility] hr capsule 00:00: mouth 00 daily. [facility] carvediloL 2021-02 Yes [id number] 6.25mg Take 1 [facility] 6.25 mg 2-09 tablet by [facility] tablet 00:00: mouth 2 00 (two) [facility] times [facility] daily with meals. atorvastati 2021-02 Yes [id number] 20mg Take 1 [facility] n 20 mg 2-09 tablet by [facility] tablet 00:00: mouth at [place] 00 bedtime. [facility] tolterodine 2021-02 Yes [id number] 2mg Take 1 [facility] [place] 2 mg 24 2-09 capsule by [facility] hr capsule 00:00: mouth [place] 00 daily. [facility] carvediloL 2021-02 Yes [id number] 6.25mg Take 1 [facility] 6.25 mg 2-09 tablet by [facility] tablet 00:00: mouth 2 (two) [facility] times [facility] daily with meals. atorvastati 2021-02 Yes [id number] 20mg Take 1 [facility] n 20 mg 2-09 tablet by [facility] tablet 00:00: mouth at [place] 00 bedtime. [facility] tolterodine 2021-02 Yes [id number] 2mg Take 1 [facility] [place] 2 mg 24 2-09 capsule by [facility] hr capsule 00:00: mouth [place] 00 daily. [facility] carvediloL 2021-02 Yes [id number] 6.25mg Take 1 [facility] 6.25 mg 2-09 tablet by [facility] tablet 00:00: mouth 2 (two) [facility] times [facility] daily with meals. atorvastati 2021-02 Yes [id number] 20mg Take 1 [facility] n 20 mg 2-09 tablet by [facility] tablet 00:00: mouth at [place] 00 bedtime. [facility] tolterodine 2021-02 Yes [id number] 2mg Take 1 [facility] [place] 2 mg 24 2-09 capsule by [facility] hr capsule 00:00: mouth [place] 00 daily. [facility] carvediloL 2021-02 Yes [id number] 6.25mg Take 1 [facility] 6.25 mg 2-09 tablet by [facility] tablet 00:00: mouth 2 (two) [facility] times [facility] daily with meals. atorvastati 2021-02 Yes [id number] 20mg Take 1 [facility] n 20 mg 2-09 tablet by [facility] tablet 00:00: mouth at [place] 00 bedtime. [facility] tolterodine 2021-02 Yes [id number] 2mg Take 1 [facility] [place] 2 mg 24 2-09 capsule by [facility] hr capsule 00:00: mouth [place] 00 daily. [facility] carvediloL 2021-02 Yes [id number] 6.25mg Take 1 [facility] 6.25 mg 2-09 tablet by [facility] tablet 00:00: mouth 2 (two) [facility] times [facility] daily with meals. atorvastati 2021-02 Yes [id number] 20mg Take 1 [facility] n 20 mg 2-09 tablet by [facility] tablet 00:00: mouth at [place] 00 bedtime. [facility] tolterodine 2021-02 Yes [id number] 2mg Take 1 [facility] [place] 2 mg 24 2-09 capsule by [facility] hr capsule 00:00: mouth 00 daily. [facility] carvediloL 2021-02 Yes [id number] 6.25mg Take 1 [facility] 6.25 mg 2-09 tablet by [facility] tablet 00:00: mouth 2 (two) [facility] times [facility] daily with meals. atorvastati 2021-02 Yes [id number] 20mg Take 1 [facility] n 20 mg 2-09 tablet by [facility] tablet 00:00: mouth at 00 bedtime. [facility] tolterodine 2021-02 Yes [id number] 2mg Take 1 [facility] [place] 2 mg 24 2-09 capsule by [facility] hr capsule 00:00: mouth 00 daily. [facility] carvediloL 2021-02 Yes [id number] 6.25mg Take 1 [facility] 6.25 mg 2-09 tablet by [facility] tablet 00:00: mouth 2 (two) [facility] times [facility] daily with meals. atorvastati 2021-02 Yes [id number] 20mg Take 1 [facility] n 20 mg 2-09 tablet by [facility] tablet 00:00: mouth at [place] bedtime. [facility] tolterodine 2021-02 Yes [id number] 2mg Take 1 [facility] [place] 2 mg 24 2-09 capsule by [facility] hr capsule 00:00: mouth 00 daily. [facility] carvediloL 2021-02 Yes [id number] 6.25mg Take 1 [facility] 6.25 mg 2-09 tablet by [facility] tablet 00:00: mouth 2 (two) [facility] times [facility] daily with meals. atorvastati 2021-02 Yes [id number] 20mg Take 1 [facility] n 20 mg 2-09 tablet by [facility] tablet 00:00: mouth at [place] 00 bedtime. [facility] tolterodine 2021-02 Yes [id number] 2mg Take 1 [facility] [place] 2 mg 24 2-09 capsule by [facility] hr capsule 00:00: mouth 00 daily. [facility] carvediloL 2021-02 Yes [id number] 6.25mg Take 1 [facility] 6.25 mg 2-09 tablet by [facility] tablet 00:00: mouth 2 00 (two) [facility] times [facility] daily with meals. atorvastati 2021-02 Yes [id number] 20mg Take 1 [facility] n 20 mg 2-09 tablet by [facility] tablet 00:00: mouth at [place] 00 bedtime. [facility] tolterodine 2021-02 Yes [id number] 2mg Take 1 [facility] [place] 2 mg 24 2-09 capsule by [facility] hr capsule 00:00: mouth 00 daily. [facility] carvediloL 2021-02 Yes [id number] 6.25mg Take 1 [facility] 6.25 mg 2-09 tablet by [facility] tablet 00:00: mouth 2 (two) [facility] times [facility] daily with meals. atorvastati 2021-02 Yes [id number] 20mg Take 1 [facility] n 20 mg 2-09 tablet by [facility] tablet 00:00: mouth at [place] 00 bedtime. [facility] tolterodine 2021-02 Yes [id number] 2mg Take 1 [facility] [place] 2 mg 24 2-09 capsule by [facility] hr capsule 00:00: mouth 00 daily. [facility] carvediloL 2021-02 Yes [id number] 6.25mg Take 1 [facility] 6.25 mg 2-09 tablet by [facility] tablet 00:00: mouth (two) [facility] times [facility] daily with meals. tolterodine 2021-02 Yes [id number] 2mg Take 1 [facility] [place] 2 mg 24 2-09 capsule by [facility] hr capsule 00:00: mouth 00 daily. [facility] carvediloL 2021-02 Yes [id number] 6.25mg Take 1 [facility] 6.25 mg 2-09 tablet by [facility] tablet 00:00: mouth (two) [facility] times [facility] daily with meals. tolterodine 2021-02 Yes [id number] 2mg Take 1 [facility] [place] 2 mg 24 2-09 capsule by [facility] hr capsule 00:00: mouth 00 daily. [facility] carvediloL 2021-02 Yes [id number] 6.25mg Take 1 [facility] 6.25 mg 2-09 tablet by [facility] tablet 00:00: mouth 2 (two) [facility] times [facility] daily with meals. tolterodine 2021-02 Yes [id number] 2mg Take 1 [facility] [place] 2 mg 24 2-09 capsule by [facility] hr capsule 00:00: mouth 00 daily. [facility] carvediloL 2021-02 Yes [id number] 6.25mg Take 1 [facility] 6.25 mg 2-09 tablet by [facility] tablet 00:00: mouth 2 (two) [facility] times [facility] daily with meals. tolterodine 2021-02 Yes [id number] 2mg Take 1 [facility] [place] 2 mg 24 2-09 capsule by [facility] hr capsule 00:00: mouth [place] 00 daily. [facility] carvediloL 2021-02 Yes [id number] 6.25mg Take 1 [facility] 6.25 mg 2-09 tablet by [facility] tablet 00:00: mouth 2 (two) [facility] times [facility] daily with meals. tolterodine 2021-02 Yes [id number] 2mg Take 1 [facility] [place] 2 mg 24 2-09 capsule by [facility] hr capsule 00:00: mouth [place] 00 daily. [facility] carvediloL 2021-02 Yes [id number] 6.25mg Take 1 [facility] 6.25 mg 2-09 tablet by [facility] tablet 00:00: mouth (two) [facility] times [facility] daily with meals. tolterodine 2021-02 Yes [id number] 2mg Take 1 [facility] [place] 2 mg 24 2-09 capsule by [facility] hr capsule 00:00: mouth [place] 00 daily. [facility] carvediloL 2021-02 Yes [id number] 6.25mg Take 1 [facility] 6.25 mg 2-09 tablet by [facility] tablet 00:00: mouth (two) [facility] times [facility] daily with meals. tolterodine 2021-02 Yes [id number] 2mg Take 1 [facility] [place] 2 mg 24 2-09 capsule by [facility] hr capsule 00:00: mouth [place] 00 daily. [facility] carvediloL 2021-02 Yes [id number] 6.25mg Take 1 [facility] 6.25 mg 2-09 tablet by [facility] tablet 00:00: mouth (two) [facility] times [facility] daily with meals. tolterodine 2021-02 Yes [id number] 2mg Take 1 [facility] [place] 2 mg 24 2-09 capsule by [facility] hr capsule 00:00: mouth [place] 00 daily. [facility] carvediloL 2021-02 Yes [id number] 6.25mg Take 1 [facility] 6.25 mg 2-09 tablet by [facility] tablet 00:00: mouth 2 (two) [facility] times [facility] daily with meals. tolterodine 2021-02 Yes [id number] 2mg Take 1 [facility] [place] 2 mg 24 2-09 capsule by [facility] hr capsule 00:00: mouth [place] 00 daily. [facility] carvediloL 2021-02 Yes [id number] 6.25mg Take 1 [facility] 6.25 mg 2-09 tablet by [facility] tablet 00:00: mouth (two) [facility] times [facility] daily with meals. tolterodine 2021-02 Yes [id number] 2mg Take 1 [facility] [place] 2 mg 24 2-09 capsule by [facility] hr capsule 00:00: mouth [place] 00 daily. [facility] carvediloL 2021-02 Yes [id number] 6.25mg Take 1 [facility] 6.25 mg 2-09 tablet by [facility] tablet 00:00: mouth (two) [facility] times [facility] daily with meals. tolterodine 2021-02 Yes [id number] 2mg Take 1 [facility] [place] 2 mg 24 2-09 capsule by [facility] hr capsule 00:00: mouth 00 daily. [facility] carvediloL 2021-02 Yes [id number] 6.25mg Take 1 [facility] 6.25 mg 2-09 tablet by [facility] tablet 00:00: mouth (two) [facility] times [facility] daily with meals. tolterodine 2021-02 Yes [id number] 2mg Take 1 [facility] [place] 2 mg 24 2-09 capsule by [facility] hr capsule 00:00: mouth 00 daily. [facility] carvediloL 2021-02 Yes [id number] 6.25mg Take 1 [facility] 6.25 mg 2-09 tablet by [facility] tablet 00:00: mouth (two) [facility] times [facility] daily with meals. tolterodine 2021-02 Yes [id number] 2mg Take 1 [facility] [place] 2 mg 24 2-09 capsule by [facility] hr capsule 00:00: mouth 00 daily. [facility] carvediloL 2021-02 Yes [id number] 6.25mg Take 1 [facility] 6.25 mg 2-09 tablet by [facility] tablet 00:00: mouth (two) [facility] times [facility] daily with meals. tolterodine 2021-02 Yes [id number] 2mg Take 1 [facility] [place] 2 mg 24 2-09 capsule by [facility] hr capsule 00:00: mouth 00 daily. [facility] carvediloL 2021-02 Yes [id number] 6.25mg Take 1 [facility] 6.25 mg 2-09 tablet by [facility] tablet 00:00: mouth (two) [facility] times [facility] daily with meals. tolterodine 2021-02 Yes [id number] 2mg Take 1 [facility] [place] 2 mg 24 2-09 capsule by [facility] hr capsule 00:00: mouth [place] 00 daily. [facility] carvediloL 2021-02 Yes [id number] 6.25mg Take 1 [facility] 6.25 mg 2-09 tablet by [facility] tablet 00:00: mouth 2 (two) [facility] times [facility] daily with meals. tolterodine 2021-02 Yes [id number] 2mg Take 1 [facility] [place] 2 mg 24 2-09 capsule by [facility] hr capsule 00:00: mouth [place] 00 daily. [facility] carvediloL 2021-02 Yes [id number] 6.25mg Take 1 [facility] 6.25 mg 2-09 tablet by [facility] tablet 00:00: mouth (two) [facility] times [facility] daily with meals. tolterodine 2021-02 Yes [id number] 2mg Take 1 [facility] [place] 2 mg 24 2-09 capsule by [facility] hr capsule 00:00: mouth 00 daily. [facility] carvediloL 2021-02 Yes [id number] 6.25mg Take 1 [facility] 6.25 mg 2-09 tablet by [facility] tablet 00:00: mouth (two) [facility] times [facility] daily with meals. tolterodine 2021-02 Yes [id number] 2mg Take 1 [facility] [place] 2 mg 24 2-09 capsule by [facility] hr capsule 00:00: mouth [place] 00 daily. [facility] carvediloL 2021-02 Yes [id number] 6.25mg Take 1 [facility] 6.25 mg 2-09 tablet by [facility] tablet 00:00: mouth (two) [facility] times [facility] daily with meals. tolterodine 2021-02 Yes [id number] 2mg Take 1 [facility] [place] 2 mg 24 2-09 capsule by [facility] hr capsule 00:00: mouth 00 daily. [facility] carvediloL 2021-02 Yes [id number] 6.25mg Take 1 [facility] 6.25 mg 2-09 tablet by [facility] tablet 00:00: mouth 2 00 (two) [facility] times [facility] daily with meals. tolterodine 2021-02 Yes [id number] 2mg Take 1 [facility] [place] 2 [facility] 24 2-09 capsule by [facility] hr capsule 00:00: mouth [place] 00 daily. [facility] carvediloL 2021-02 Yes [id number] 6.25mg Take 1 [facility] 6.25 mg 2-09 tablet by [facility] tablet 00:00: mouth (two) Medical times Branch daily with meals. tolterodine 2021-02 Yes [id number] 2mg Take 1 [facility] [place] 2 mg 24 2-09 capsule by [facility] capsule 00:00: mouth 00 daily. [facility] carvediloL 2021-02 Yes [id number] 6.25mg Take 1 [facility] 6.25 mg 2-09 tablet by [facility] tablet 00:00: mouth (two) Medical times Branch daily with meals. tolterodine 2021-02 Yes [id number] 2mg Take 1 [facility] 2 mg 24 2-09 capsule by [facility] capsule 00:00: mouth 00 daily. [facility] carvediloL 2021-02 Yes [id number] 6.25mg Take 1 [facility] 6.25 mg 2-09 tablet by [facility] tablet 00:00: mouth (two) Medical times Branch daily with meals. tolterodine 2021-02 Yes [id number] 2mg Take 1 [facility] 2 mg 24 2-09 capsule by [facility] capsule 00:00: mouth 00 daily. [facility] carvediloL 2021-02 Yes [id number] 6.25mg Take 1 [facility] 6.25 mg 2-09 tablet by [facility] of tablet 00:00: mouth (two) Medical times [facility] daily with meals. tolterodine 2021-02 Yes [id number] 2mg Take 1 [facility] 2 mg 24 2-09 capsule by [facility] capsule 00:00: mouth 00 daily. [facility] carvediloL 2021-02 Yes [id number] 6.25mg Take 1 [facility] 6.25 mg 2-09 tablet by [facility] tablet 00:00: mouth (two) Medical times [facility] daily with meals. tolterodine 2021-02 Yes [id number] 2mg Take 1 [facility] 2 mg 24 2-09 capsule by [facility] hr capsule 00:00: mouth 00 daily. [facility] carvediloL 2021-02 Yes [id number] 6.25mg Take 1 [facility] 6.25 mg 2-09 tablet by [facility] of tablet 00:00: mouth (two) Medical times [facility] daily with meals. tolterodine 2021-02 Yes [id number] 2mg Take 1 [facility] 2 mg 24 2-09 capsule by [facility] hr capsule 00:00: mouth [place] 00 daily. [facility] carvediloL 2021-02 Yes [id number] 6.25mg Take 1 [facility] 6.25 mg 2-09 tablet by [facility] tablet 00:00: mouth 2 00 (two) Medical times [facility] daily with meals. tolterodine 2021-02 Yes [id number] 2mg Take 1 [facility] 2 mg 24 2-09 capsule by [facility] hr capsule 00:00: mouth [place] 00 daily. [facility] carvediloL 2021-02 Yes [id number] 6.25mg Take 1 [facility] 6.25 mg 2-09 tablet by [facility] tablet 00:00: mouth (two) Medical times [facility] daily with meals. tolterodine 2021-02 Yes [id number] 2mg Take 1 [facility] 2 mg 24 2-09 capsule by [facility] capsule 00:00: mouth 00 daily. [facility] carvediloL 2021-02 Yes [id number] 6.25mg Take 1 [facility] 6.25 mg 2-09 tablet by [facility] tablet 00:00: mouth (two) Medical times [facility] daily with meals. tolterodine 2021-02 Yes [id number] 2mg Take 1 [facility] 2 mg 24 2-09 capsule by [facility] hr capsule 00:00: mouth [place] 00 daily. [facility] carvediloL 2021-02 Yes [id number] 6.25mg Take 1 [facility] 6.25 mg 2-09 tablet by [facility] of tablet 00:00: mouth (two) Medical times Branch daily with meals. tolterodine 2021-02 Yes [id number] 2mg Take 1 [facility] 2 mg 24 2-09 capsule by [facility] hr capsule 00:00: mouth [place] 00 daily. [facility] carvediloL 2021-02 Yes [id number] 6.25mg Take 1 [facility] 6.25 mg 2-09 tablet by [facility] of tablet 00:00: mouth 2 00 (two) Medical times Branch daily with meals. tolterodine 2021-02 Yes [id number] 2mg Take 1 [facility] 2 mg 24 2-09 capsule by [facility] hr capsule 00:00: mouth [place] 00 daily. [facility] carvediloL 2021-02 Yes [id number] 6.25mg Take 1 [facility] 6.25 mg 2-09 tablet by [facility] of tablet 00:00: mouth 2 (two) Medical times Branch daily with meals. tolterodine 2021-02 Yes [id number] 2mg Take 1 [facility] 2 mg 24 2-09 capsule by [facility] hr capsule 00:00: mouth [place] 00 daily. [facility] carvediloL 2021-02 Yes [id number] 6.25mg Take 1 [facility] 6.25 mg 2-09 tablet by [facility] of tablet 00:00: mouth 2 (two) Medical times Branch daily with meals. tolterodine 2021-02 Yes [id number] 2mg Take 1 [facility] 2 mg 24 2-09 capsule by [facility] hr capsule 00:00: mouth [place] 00 daily. [facility] carvediloL 2021-02 Yes [id number] 6.25mg Take 1 [facility] 6.25 mg 2-09 tablet by [facility] of tablet 00:00: mouth (two) Medical times Branch daily with meals. tolterodine 2021-02 Yes [id number] 2mg Take 1 [facility] 2 mg 24 2-09 capsule by [facility] hr capsule 00:00: mouth [place] 00 daily. [facility] carvediloL 2021-02 Yes [id number] 6.25mg Take 1 [facility] 6.25 mg 2-09 tablet by [facility] of tablet 00:00: mouth 2 (two) Medical times Branch daily with meals. tolterodine 2021-02 Yes [id number] 2mg Take 1 [facility] 2 mg 24 2-09 capsule by [facility] hr capsule 00:00: mouth [place] 00 daily. [facility] atorvastati 2021-02- No [id number] 20mg Take 1 [facility] n 20 mg 03-24 tablet by [facility] of tablet 00:00: 00:00 mouth at [place] 00 :00 bedtime. [facility] atorvastati 2021-02- No [id number] 20mg Take 1 [facility] n 20 mg 03-24 tablet by [facility] of tablet 00:00: 00:00 mouth at [place] 00 :00 bedtime. [facility] atorvastati 2021-02- No [id number] 20mg Take 1 [facility] n 20 mg 03-24 tablet by [facility] of tablet 00:00: 00:00 mouth at [place] 00 :00 bedtime. [facility] carvediloL 2021-02 Yes [id number] 12.5mg Take 1 [facility] 12.5 mg 1-11 tablet by [facility] of tablet 00:00: mouth 2 [place] 00 (two) Medical times Branch daily with meals. Additional refills per cardio carvediloL 2021-02 Yes [id number] 12.5mg Take 1 [facility] 12.5 mg 1-11 tablet by ity of tablet 00:00: mouth 2 [place] 00 (two) Medical times Branch daily with meals. Additional refills per cardio carvediloL 2021-02- No [id number] 12.5mg Take 1 [facility] 12.5 mg 1-11 - tablet by ity of tablet 00:00: 00:00 mouth 2 [place] 00 :00 (two) Medical times Branch daily with meals. Additional refills per cardio carvediloL 2021-02- No [id number] 12.5mg Take 1 [facility] 12.5 mg -11 [...] mouth once [place] 00 daily with [facility] METFORMIN 2021-02 Yes Take 1 [facility] 500 mg 24 1-09 tablet by ity o f hr tablet 00:00: mouth once [place] 00 daily with [facility] METFORMIN 2021-02 Yes Take 1 [facility] 500 mg 24 1-09 tablet by ity o f hr tablet 00:00: mouth once [place] 00 daily with [facility] METFORMIN 2021-02 Yes Take 1 [facility] 500 mg 24 1-09 tablet by ity o f hr tablet 00:00: mouth once [place] 00 daily with [facility] METFORMIN 2021-02 Yes Take 1 [facility] 500 mg 24 1-09 tablet by [facility]y o f hr tablet 00:00: mouth once [place] 00 daily with [facility] Branch METFORMIN 2021-02 Yes Take 1 [facility] 500 mg 24 1-09 tablet by [facility]y o f hr tablet 00:00: mouth once [place] 00 daily with [facility] Branch METFORMIN 2021-02 Yes Take 1 [facility] 500 mg 24 1-09 tablet by ity o f hr tablet 00:00: mouth once [place] 00 daily with [facility] METFORMIN 2021-02 Yes Take 1 [facility] 500 mg 24 1-09 tablet by ity o f hr tablet 00:00: mouth once [place] 00 daily with [facility] Branch METFORMIN 2021-02 Yes Take 1 [facility] 500 mg 24 1-09 tablet by [facility]y o f hr tablet 00:00: mouth once [place] 00 daily with [facility] Branch METFORMIN 2021-02 Yes Take 1 [facility] 500 mg 24 1-09 tablet by [facility]y o f hr tablet 00:00: mouth once [place] 00 daily with [facility] breakfast Branch METFORMIN 2021-02 Yes Take 1 [facility] 500 mg 24 1-09 tablet by ity o f hr tablet 00:00: mouth once [place] 00 daily with [facility] Branch METFORMIN 2021-02 Yes Take 1 [facility] 500 mg 24 1-09 tablet by ity o f hr tablet 00:00: mouth once [place] 00 daily with [facility] Branch METFORMIN 2021-02 Yes Take 1 [facility]iver [...] mouth once [place] 00 daily with [facility] breakfast Branch METFORMIN 2021-02 Yes Take 1 [...] mouth once [place] 00 daily with [facility] breakfast Branch METFORMIN 2021-02 Yes Take 1 [...] mouth once [place] 00 daily with [facility] Branch METFORMIN 2021-02 Yes Take 1 [facility] 500 mg 24 1-09 tablet by ity o f hr tablet 00:00: mouth once [place] 00 daily with [facility] Branch METFORMIN 2021-02 Yes Take 1 [facility] 500 mg 24 1-09 tablet by ity o f hr tablet 00:00: mouth once [place] 00 daily with [facility] Branch METFORMIN 2021-02 Yes Take 1 [facility] 500 mg 24 1-09 tablet by ity o f hr tablet 00:00: mouth once [place] 00 daily with [facility] Branch METFORMIN 2021-02 Yes Take 1 [facility] 500 mg 24 1-09 tablet by [facility]y o f hr tablet 00:00: mouth once [place] 00 daily with [facility] Branch METFORMIN 2021-02 Yes Take 1 [facility] 500 mg 24 1-09 tablet by [facility]y o f hr tablet 00:00: mouth once [place] 00 daily with [facility] Branch METFORMIN 2021-02 Yes Take 1 [facility] 500 mg 24 1-09 tablet by ity o f hr tablet 00:00: mouth once [place] 00 daily with [facility] Branch METFORMIN 2021-02 Yes Take 1 [facility] 500 mg 24 1-09 tablet by ity o f hr tablet 00:00: mouth once [place] 00 daily with [facility] Branch METFORMIN 2021-02 Yes Take 1 [facility] 500 mg 24 1-09 tablet by ity o f hr tablet 00:00: mouth once [place] 00 daily with [facility] Branch METFORMIN 2021-02 Yes Take 1 [facility] 500 mg 24 1-09 tablet by ity o f hr tablet 00:00: mouth once [place] 00 daily with [facility] Branch METFORMIN 2021-02 Yes Take 1 [facility] 500 mg 24 1-09 tablet by ity o f hr tablet 00:00: mouth once [place] 00 daily with [facility] breakfast Branch METFORMIN 2021-02 Yes Take 1 [facility] 500 mg 24 1-09 tablet by ity o f hr tablet 00:00: mouth once [place] 00 daily with [facility] Branch METFORMIN 2021-02 Yes Take 1 [facility] 500 mg 24 1-09 tablet by ity o f hr tablet 00:00: mouth once [place] 00 daily with [facility] Branch METFORMIN 2021-02 Yes Take 1 [facility]iver [...] mouth once [place] 00 daily with [facility] breakfast Branch METFORMIN 2021-02 Yes Take 1 [...] mouth once [place] 00 daily with [facility] breakfast Branch METFORMIN 2021-02 Yes Take 1 [...] mouth once [place] 00 daily with [facility] Branch METFORMIN 2021-02 Yes Take 1 [facility] 500 mg 24 1-09 tablet by ity o f hr tablet 00:00: mouth once [place] 00 daily with [facility] Branch METFORMIN 2021-02 Yes Take 1 [facility] 500 mg 24 1-09 tablet by ity o f hr tablet 00:00: mouth once [place] 00 daily with [facility] Branch METFORMIN 2021-02 Yes Take 1 [facility] 500 mg 24 1-09 tablet by ity o f hr tablet 00:00: mouth once [place] 00 daily with [facility] Branch METFORMIN 2021-02 Yes Take 1 [facility] 500 mg 24 1-09 tablet by ity o f hr tablet 00:00: mouth once [place] 00 daily with [facility] Branch METFORMIN 2021-02 Yes Take 1 [facility] 500 mg 24 1-09 tablet by ity o f hr tablet 00:00: mouth once [place] 00 daily with [facility] Branch METFORMIN 2021-02 Yes Take 1 [facility] 500 mg 24 1-09 tablet by ity o f hr tablet 00:00: mouth once [place] 00 daily with [facility] Branch METFORMIN 2021-02 Yes Take 1 [facility] 500 mg 24 1-09 tablet by ity o f hr tablet 00:00: mouth once [place] 00 daily with [facility] Branch METFORMIN 2021-02 Yes Take 1 [facility] 500 mg 24 1-09 tablet by ity o f hr tablet 00:00: mouth once [place] 00 daily with [facility] Branch METFORMIN 2021-02 Yes Take 1 [facility] 500 mg 24 1-09 tablet by ity o f hr tablet 00:00: mouth once [place] 00 daily with [facility] Branch METFORMIN 2021-02 Yes Take 1 [facility] 500 mg 24 1-09 tablet by ity o f hr tablet 00:00: mouth once [place] 00 daily with [facility] breakfast Branch METFORMIN 2021-02 Yes Take 1 [facility] 500 mg 24 1-09 tablet by ity o f hr tablet 00:00: mouth once [place] 00 daily with [facility] Branch METFORMIN 2021-02 Yes Take 1 [facility] 500 mg 24 1-09 tablet by ity o f hr tablet 00:00: mouth once [place] 00 daily with [facility] Branch METFORMIN 2021-02 Yes Take 1 [facility] [...] mouth once [place] 00 daily with [facility] breakfast Branch spironolact 2021-02- No 25mg Take 25 mg [facility] one 25 mg 0-21 10-21 by mouth ity o f tablet 14:33: 00:00 daily. [place] 53 :00 Medical Branch spironolact 2021-02- No 25mg Take 25 mg [facility] one 25 mg 0-21 10-21 by mouth ity o f tablet 14:33: 00:00 daily. [place] 53 :00 Medical Branch benzonatate 2021-02 Yes [id number] 200mg Take 1 [facility] 200 mg 0-21 capsule by [facility]y of capsule 00:00: mouth 3 [place] 00 (three) Medical times Branch daily as needed for Cough. atorvastati 2021-02 Yes [id number] 40mg Take 1 [facility] n 40 mg 0-21 tablet by ity of tablet 00:00: mouth at [place] 00 bedtime. Medical Branch losartan 25 2021-02 Yes [id number] 25mg Take 1 [facility] mg tablet 0-21 tablet by ity o f 00:00: mouth at [place] 00 bedtime. Medical Branch furosemide 2021-02 Yes [id number] 20mg Take 1 [facility] 20 mg 0-21 tablet by ity of tablet 00:00: mouth [place] 00 daily. [facility] Branch spironolact 2021-02 Yes [id number] 25mg Take 1 [facility] one 25 mg 0-21 tablet by ity o f tablet 00:00: mouth [place] 00 daily. [facility] Branch benzonatate 2021-02 Yes [id number] 200mg Take 1 [facility] 200 mg 0-21 capsule by ity of capsule 00:00: mouth 3 [place] 00 (three) Medical times Branch daily as needed for Cough. atorvastati 2021-02 Yes [id number] 40mg Take 1 [facility] n 40 mg 0-21 tablet by ity of tablet 00:00: mouth at [place] 00 bedtime. Medical Branch losartan 25 2021-02 Yes [id number] 25mg Take 1 [facility] mg tablet 0-21 tablet by ity o f 00:00: mouth at [place] 00 bedtime. Medical Branch furosemide 2021-02 Yes [id number] 20mg Take 1 [facility] 20 mg 0-21 tablet by ity of tablet 00:00: mouth [place] 00 daily. [facility] Branch spironolact 2021-02 Yes [id number] 25mg Take 1 [facility] one 25 mg 0-21 tablet by ity o f tablet 00:00: mouth [place] 00 daily. [facility] Branch benzonatate 2021-02 Yes [id number] 200mg Take 1 [facility] 200 mg 0-21 capsule by ity of capsule 00:00: mouth 3 [place] 00 (three) Medical times Branch daily as needed for Cough. atorvastati 2021-02 Yes [id number] 40mg Take 1 [facility] n 40 mg 0-21 tablet by ity of tablet 00:00: mouth at [place] 00 bedtime. Medical Branch losartan 25 2021-02 Yes [id number] 25mg Take 1 [facility] mg tablet 0-21 tablet by ity o f 00:00: mouth at [place] 00 bedtime. Medical Branch furosemide 2021-02 Yes [id number] 20mg Take 1 [facility] 20 mg 0-21 tablet by ity of tablet 00:00: mouth [place] 00 daily. Medical Branch spironolact 2021-02 Yes [id number] 25mg Take 1 [facility] one 25 mg 0-21 tablet by ity o f tablet 00:00: mouth [place] 00 daily. [facility] Branch benzonatate 2021-02 Yes [id number] 200mg Take 1 [facility] 200 mg 0-21 capsule by ity of capsule 00:00: mouth 3 [place] 00 (three) Medical times Branch daily as needed for Cough. atorvastati 2021-02 Yes [id number] 40mg Take 1 [facility] n 40 mg 0-21 tablet by ity of tablet 00:00: mouth at [place] 00 bedtime. Medical Branch losartan 25 2021-02 Yes [id number] 25mg Take 1 [facility] mg tablet 0-21 tablet by ity o f 00:00: mouth at [place] 00 bedtime. Medical Branch furosemide 2021-02 Yes [id number] 20mg Take 1 [facility] 20 mg 0-21 tablet by ity of tablet 00:00: mouth [place] 00 daily. Medical Branch spironolact 2021-02 Yes [id number] 25mg Take 1 [facility] one 25 mg 0-21 tablet by ity o f tablet 00:00: mouth [place] 00 daily. [facility] Branch benzonatate 2021-02 Yes [id number] 200mg Take 1 [facility] 200 mg 0-21 capsule by ity of capsule 00:00: mouth 3 [place] 00 (three) Medical times [place] daily as needed for Cough. atorvastati 2021-02 Yes [id number] 40mg Take 1 [facility] n 40 mg 0-21 tablet by ity of tablet 00:00: mouth at [place] 00 bedtime. Medical Branch losartan 25 2021-02 Yes [id number] 25mg Take 1 [facility] mg tablet 0-21 tablet by ity o f 00:00: mouth at [place] 00 bedtime. Medical Branch furosemide 2021-02 Yes [id number] 20mg Take 1 [facility]ivers 20 mg 0-21 tablet by ity of tablet 00:00: mouth [place] 00 daily. Medical Branch spironolact 2021-02 Yes [id number] 25mg Take 1 [facility] one 25 mg 0-21 tablet by ity o f tablet 00:00: mouth [place] 00 daily. Medical Branch benzonatate 2021-02 Yes [id number] 200mg Take 1 [facility] 200 mg 0-21 capsule by ity of capsule 00:00: mouth 3 [place] 00 (three) Medical times Branch daily as needed for Cough. atorvastati 2021-02 Yes [id number] 40mg Take 1 [facility] n 40 mg 0-21 tablet by ity of tablet 00:00: mouth at [place] 00 bedtime. Medical Branch losartan 25 2021-02 Yes [id number] 25mg Take 1 [facility] mg tablet 0-21 tablet by ity o f 00:00: mouth at [place] 00 bedtime. Medical Branch furosemide 2021-02 Yes [id number] 20mg Take 1 [facility]ivers 20 mg 0-21 tablet by ity of tablet 00:00: mouth [place] 00 daily. Medical Branch spironolact 2021-02 Yes [id number] 25mg Take 1 [facility] one 25 mg 0-21 tablet by ity o f tablet 00:00: mouth [place] 00 daily. Medical Branch losartan 25 2021-02 Yes [id number] 25mg Take 1 [facility] mg tablet 0-21 tablet by ity o f 00:00: mouth at [place] 00 bedtime. Medical Branch furosemide 2021-02 Yes [id number] 20mg Take 1 [facility] nivers 20 mg 0-21 tablet by ity of tablet 00:00: mouth [place] 00 daily. Medical Branch spironolact 2021-02 Yes [id number] 25mg Take 1 [facility] one 25 mg 0-21 tablet by ity o f tablet 00:00: mouth [place] 00 daily. [facility] Branch losartan 25 2021-02 Yes [id number] 25mg Take 1 [facility] mg tablet 0-21 tablet by ity o f 00:00: mouth at [place] 00 bedtime. Medical Branch furosemide 2021-02 Yes [id number] 20mg Take 1 [facility]ivers 20 mg 0-21 tablet by ity of tablet 00:00: mouth [place] 00 daily. Medical Branch spironolact 2021-02 Yes [id number] 25mg Take 1 [facility] one 25 mg 0-21 tablet by ity o f tablet 00:00: mouth [place] 00 daily. [facility] Branch losartan 25 2021-02 Yes [id number] 25mg Take 1 [facility] mg tablet 0-21 tablet by ity o f 00:00: mouth at [place] 00 bedtime. Medical Branch furosemide 2021-02 Yes [id number] 20mg Take 1 [facility]ivers 20 mg 0-21 tablet by ity of tablet 00:00: mouth [place] 00 daily. [facility] Branch spironolact 2021-02 Yes [id number] 25mg Take 1 [facility] one 25 mg 0-21 tablet by ity o f tablet 00:00: mouth [place] 00 daily. [facility] Branch losartan 25 2021-02 Yes [id number] 25mg Take 1 [facility] mg tablet 0-21 tablet by ity o f 00:00: mouth at [place] 00 bedtime. Medical Branch furosemide 2021-02 Yes [id number] 20mg Take 1 [facility]ivers 20 mg 0-21 tablet by ity of tablet 00:00: mouth [place] 00 daily. Medical Branch spironolact 2021-02 Yes [id number] 25mg Take 1 [facility] one 25 mg 0-21 tablet by ity o f tablet 00:00: mouth [place] 00 daily. [facility] Branch spironolact 2021-02 Yes [id number] 25mg Take 1 [facility] one 25 mg 0-21 tablet by ity o f tablet 00:00: mouth [place] 00 daily. [facility] Branch spironolact 2021-02 Yes [id number] 25mg Take 1 [facility] one 25 mg 0-21 tablet by ity o f tablet 00:00: mouth [place] 00 daily. Medical Branch spironolact 2021-02 Yes [id number] 25mg Take 1 [facility] one 25 mg 0-21 tablet by ity o f tablet 00:00: mouth [place] 00 daily. [facility] Branch spironolact 2021-02 Yes [id number] 25mg Take 1 [facility] one 25 mg 0-21 tablet by ity o f tablet 00:00: mouth [place] 00 daily. [facility] Branch spironolact 2021-02 Yes [id number] 25mg Take 1 [facility] one 25 mg 0-21 tablet by ity o f tablet 00:00: mouth [place] 00 daily. [facility] Branch spironolact 2021-02 Yes [id number] 25mg Take 1 [facility] one 25 mg 0-21 tablet by ity o f tablet 00:00: mouth [place] 00 daily. [facility] Branch spironolact 2021-02 Yes [id number] 25mg Take 1 [facility] one 25 mg 0-21 tablet by ity o f tablet 00:00: mouth [place] 00 daily. [facility] Branch spironolact 2021-02 Yes [id number] 25mg Take 1 [facility] one 25 mg 0-21 tablet by ity o f tablet 00:00: mouth [place] 00 daily. [facility] Branch spironolact 2021-02 Yes [id number] 25mg Take 1 [facility] one 25 mg 0-21 tablet by ity o f tablet 00:00: mouth [place] 00 daily. [facility] Branch spironolact 2021-02 Yes [id number] 25mg Take 1 [facility] one 25 mg 0-21 tablet by ity o f tablet 00:00: mouth [place] 00 daily. [facility] Branch spironolact 2021-02 Yes [id number] 25mg Take 1 [facility] one 25 mg 0-21 tablet by ity o f tablet 00:00: mouth [place] 00 daily. [facility] Branch spironolact 2021-02 Yes [id number] 25mg Take 1 [facility] one 25 mg 0-21 tablet by ity o f tablet 00:00: mouth [place] 00 daily. [facility] Branch spironolact 2021-02 Yes [id number] 25mg Take 1 [facility] one 25 mg 0-21 tablet by ity o f tablet 00:00: mouth [place] 00 daily. [facility] spironolact 2021-02 Yes [id number] 25mg Take 1 [facility] one 25 mg 0-21 tablet by ity o f tablet 00:00: mouth [place] 00 daily. [facility] Branch spironolact 2021-02 Yes [id number] 25mg Take 1 [facility] one 25 mg 0-21 tablet by ity o f tablet 00:00: mouth [place] 00 daily. [facility] Branch spironolact 2021-02 Yes [id number] 25mg Take 1 [facility] one 25 mg 0-21 tablet by ity o f tablet 00:00: mouth [place] 00 daily. [facility] spironolact 2021-02 Yes [id number] 25mg Take 1 [facility] one 25 mg 0-21 tablet by ity o f tablet 00:00: mouth [place] 00 daily. [facility] Branch spironolact 2021-02 Yes [id number] 25mg Take 1 [facility] one 25 mg 0-21 tablet by ity o f tablet 00:00: mouth [place] 00 daily. [facility] Branch spironolact 2021-02 Yes [id number] 25mg Take 1 [facility] one 25 mg 0-21 tablet by ity o f tablet 00:00: mouth [place] 00 daily. [facility] Branch spironolact 2021-02 Yes [id number] 25mg Take 1 [facility] one 25 mg 0-21 tablet by ity o f tablet 00:00: mouth [place] 00 daily. [facility] Branch spironolact 2021-02 Yes [id number] 25mg Take 1 [facility] one 25 mg 0-21 tablet by ity o f tablet 00:00: mouth [place] 00 daily. Medical Branch spironolact 2021-02 Yes [id number] 25mg Take 1 [facility] one 25 mg 0-21 tablet by ity o f tablet 00:00: mouth [place] 00 daily. [facility] Branch spironolact 2021-02 Yes [id number] 25mg Take 1 [facility] one 25 mg 0-21 tablet by ity o f tablet 00:00: mouth [place] 00 daily. Medical Branch spironolact 2021-02 Yes [id number] 25mg Take 1 [facility] one 25 mg 0-21 tablet by ity o f tablet 00:00: mouth [place] 00 daily. Medical Branch spironolact 2021-02- No [id number] 25mg Take 1 [facility] one 25 mg 0-21 04-12 tablet by ity of tablet 00:00: 00:00 mouth [place] 00 :00 daily. Medical Branch spironolact 2021-02- No [id number] 25mg Take 1 [facility] one 25 mg 0-21 04-12 tablet by ity of tablet 00:00: 00:00 mouth [place] 00 :00 daily. Medical Branch losartan 25 2021-02- No [id number] 25mg Take 1 [facility] mg tablet 0-21 -27 tablet by ity of 00:00: 00:00 mouth at [place] 00 :00 bedtime. Medical Branch furosemide 2021-02- No [id number] 20mg Take 1 [facility] 20 mg 0-21 -27 tablet by ity of tablet 00:00: 00:00 mouth [place] 00 :00 daily. Medical Branch losartan 25 2021-02- No [id number] 25mg Take 1 [facility] mg tablet 0-21 -27 tablet by ity of 00:00: 00:00 mouth at [place] 00 :00 bedtime. Medical Branch furosemide 2021-02- No [id number] 20mg Take 1 [facility] 20 mg 0-21 -27 tablet by ity of tablet 00:00: 00:00 mouth [place] 00 :00 daily. Medical Branch losartan 25 2021-02- No [id number] 25mg Take 1 [facility] mg tablet 0-21 -27 tablet by ity of 00:00: 00:00 mouth at [place] 00 :00 bedtime. Medical Branch furosemide 2021-02- No [id number] 20mg Take 1 [facility] 20 mg 0-03-11 tablet by ity of tablet 00:00: 00:00 mouth [place] 00 :00 daily. Medical Branch losartan 25 2021-02- No [id number] 25mg Take 1 [facility] mg tablet 0-03-11 tablet by ity of 00:00: 00:00 mouth at [place] 00 :00 bedtime. Medical Branch furosemide 2021-02- No [id number] 20mg Take 1 [facility] 20 mg 0-03-11 tablet by ity of tablet 00:00: 00:00 mouth [place] 00 :00 daily. Medical Branch losartan 25 2021-02- No [id number] 25mg Take 1 [facility] mg tablet 003-11 tablet by ity of 00:00: 00:00 mouth at [place] 00 :00 bedtime. Medical Branch furosemide 2021-02- No [id number] 20mg Take 1 [facility] 20 mg 0-03-11 tablet by ity of tablet 00:00: 00:00 mouth [place] 00 :00 daily. Medical Branch losartan 25 2021-02- No [id number] 25mg Take 1 [facility] mg tablet 003-11 tablet by ity of 00:00: 00:00 mouth at [place] 00 :00 bedtime. Medical Branch furosemide 2021-02- No [id number] 20mg Take 1 [facility] 20 mg 0-03-11 tablet by ity of tablet 00:00: 00:00 mouth [place] 00 :00 daily. Medical Branch losartan 25 2021-02- No [id number] 25mg Take 1 [facility] mg tablet 003-11 tablet by ity of 00:00: 00:00 mouth at [place] 00 :00 bedtime. Medical Branch furosemide 2021-02- No [id number] 20mg Take 1 [facility] 20 mg 0-03-11 tablet by ity of tablet 00:00: 00:00 mouth [place] 00 :00 daily. Medical Branch benzonatate 2021-02- No [id number] 200mg Take 1 [facility] 200 mg -01-21 capsule by ity of capsule 00:00: 00:00 mouth 3 [place] 00 :00 (three) Medical times Branch daily as needed for Cough. atorvastati 2021-02- No [id number] 40mg Take 1 [facility] n 40 mg 0-01-21 tablet by ity of tablet 00:00: 00:00 mouth at [place] 00 :00 bedtime. Medical Branch benzonatate 2021-02- No [id number] 200mg Take 1 [facility] 200 mg -01-21 capsule by ity of capsule 00:00: 00:00 mouth 3 [place] 00 :00 (three) Medical times Branch daily as needed for Cough. atorvastati 2021-02- No [id number] 40mg Take 1 [facility] n 40 mg 01-21 tablet by ity of tablet 00:00: 00:00 mouth at [place] 00 :00 bedtime. Medical Branch Albuterol 2021- No 4{puff} Inhale 4 [facility] Sulfate 9-30 09-30 Puffs by [place] (VENTOLIN 15:42: 00:00 mouth two of HFA) 108 52 :00 times Medicin (90 Base) daily. e MCG/ACT AERS carvedilol Yes 12.5mg Take 12.5 [facility] (COREG) 9-30 mg by [place] 12.5 MG 14:53: mouth of tablet 41 daily. Medicin e carvedilol Yes 12.5mg Take 12.5 [facility] (COREG) 9-30 mg by [place] 12.5 MG 14:53: mouth of tablet 41 daily. Medicin e Albuterol Yes [id number] 4{puff} Inhale 4 [facility] Sulfate 9-30 Puffs by [place] (VENTOLIN 00:00: mouth two of HFA) 108 00 times Medicin (90 Base) daily. e MCG/ACT AERS Fluticasone Yes [id number] 1{puff} Inhale 1 [facility] -Salmeterol 9-30 Puff by Shanda weber (ADVAIR) 00:00: mouth of 250-50 00 every 12 Medicin MCG/ACT hours. e inhaler albuterol Yes [id number] 2.5mg Take 1 [facility] (PROVENTIL) 9-30 Ampule by Col lege (2.5 mg/3 00:00: nebulizati of mL) 0.083% 00 on every 4 Med icin nebulizer hours as e solution needed for Wheezing. Diclofenac Yes [id number] 5g Apply 5 g [facility] Sodium 1 % 9-30 topically Kristine ege GEL 00:00: every 6 of 00 hours as Medicin needed for e Pain. Albuterol Yes [id number] 4{puff} Inhale 4 [facility] Sulfate 9-30 Puffs by [place] (VENTOLIN 00:00: mouth two of HFA) 108 00 times Medicin (90 Base) daily. e MCG/ACT AERS albuterol Yes [id number] 2.5mg Take 1 [facility] (PROVENTIL) 9-30 Ampule by Col lege (2.5 mg/3 00:00: nebulizati of mL) 0.083% 00 on every 4 Med icin nebulizer hours as e solution needed for Wheezing. Fluticasone 2022- No [id number] 1{puff} Inhale 1 [facility] -Salmeterol 9-30 02-10 Puff by Kristine ege (ADVAIR) 00:00: 00:00 mouth of 250-50 00 :00 every 12 Medicin MCG/ACT hours. e inhaler Diclofenac 2022- No [id number] 5g Apply 5 g [facility] Sodium 1 % 9-30 02-10 topically Col [facility]ge GEL 00:00: 00:00 every 6 of 00 :00 hours as Medicin needed for e Pain. Melatonin 2021- No Take by [facility] 10 MG TABS 11-01 mouth. [place] e 10:19: 00:00 of 25 :00 Medicin e Magnesium 2021- No Take by [facility] 100 MG CAPS 11-01 mouth. Colle ge 10:19: 00:00 of 22 :00 Medicin e losartan 50 Yes [id number] 25mg Take 0.5 [facility] mg tablet 9-12 tablets by ity of 00:00: mouth [place] 00 every Medical evening. Branch losartan 50 Yes [id number] 25mg Take 0.5 [facility] mg tablet 9-12 tablets by ity of 00:00: mouth [place] 00 every Medical evening. Branch losartan 50 0 Yes [id number] 25mg Take 0.5 [facility] mg tablet 9-12 tablets by ity of 00:00: mouth [place] 00 every Medical evening. Branch losartan 50 0 Yes [id number] 25mg Take 0.5 [facility] mg tablet 9-12 tablets by ity of 00:00: mouth [place] 00 every Medical evening. Branch losartan 50 0 Yes [id number] 25mg Take 0.5 [facility] mg tablet 9-12 tablets by ity of 00:00: mouth [place] 00 every Medical evening. Branch losartan 50 0 Yes [id number] 25mg Take 0.5 [facility] mg tablet 9-12 tablets by ity of 00:00: mouth [place] 00 every Medical evening. Branch losartan 50 0 Yes [id number] 25mg Take 0.5 [facility] mg tablet 9-12 tablets by ity of 00:00: mouth [place] 00 every Medical evening. Branch losartan 50 0 Yes [id number] 25mg Take 0.5 [facility] mg tablet 9-12 tablets by ity of 00:00: mouth [place] 00 every Medical evening. Branch losartan 50 0 Yes [id number] 25mg Take 0.5 [facility] mg tablet 9-12 tablets by ity of 00:00: mouth [place] 00 every Medical evening. Branch losartan 50 0 Yes [id number] 25mg Take 0.5 [facility] mg tablet 9-12 tablets by ity of 00:00: mouth [place] 00 every Medical evening. Branch losartan 50 0 Yes [id number] 25mg Take 0.5 [facility] mg tablet 9-12 tablets by ity of 00:00: mouth [place] 00 every Medical evening. Branch losartan 50 0 Yes [id number] 25mg Take 0.5 [facility] mg tablet 9-12 tablets by ity of 00:00: mouth [place] 00 every Medical evening. Branch losartan 50 0 Yes [id number] 25mg Take 0.5 [facility] mg tablet 9-12 tablets by ity of 00:00: mouth [place] 00 every Medical evening. Branch losartan 50 2021-0 2021- No [id number] 25mg Take 0.5 [facility] mg tablet 9-12 10-21 tablets by ity of 00:00: 00:00 mouth [place] 00 :00 every Medical evening. Branch losartan 50 2021-0 2021- No [id number] 25mg Take 0.5 [facility] mg tablet 9-12 10-21 tablets by ity of 00:00: 00:00 mouth [place] 00 :00 every Medical evening. Branch furosemide 2022-0 Yes 40mg Take 40 mg [place] [facility] (LASIX) 40 8-28 by mouth Colle ge MG tablet 00:00: daily. of 00 Medicin e spironolact 2021-0 Yes 25mg Take 25 mg Art one 8-28 by mouth [place] (ALDACTONE) 00:00: daily. of 25 MG 00 [...] 2021-0 2023- No 40mg Take 40 mg [facility] (LASIX) 40 8-28 02-10 by mouth Kristine ege MG tablet 00:00: 00:00 daily. of 00 :00 Medicin e spironolact 2021-0 2023- No 25mg Take 25 mg [facility] one 8-28 02-10 by mouth [place] (ALDACTONE) 00:00: 00:00 daily. of 25 MG [...] 1 Univ ers 500 mg 24 7-29 -09 tablet by ity of hr tablet 00:00: 00:00 mouth [place] 00 :00 daily with Medical breakfast. Branch OXYBUTYNIN 2021-2021- No 10mg Take 10 mg [facility] CHLORIDE -15 -15 by mouth. ity o f ORAL 14:50: 00:00 Managed by [place] 14 :00 [facility] losartan 50 2021-2021- No [id number] 50mg Take 1 [facility] mg tablet 08-27-12 tablet by ity of 00:00: 00:00 mouth [place] 00 :00 daily. Medical Branch losartan 50 2022-0 2022- No [id number] 50mg Take 1 [facility] mg tablet 05-04 07-15 tablet by ity of 00:00: 00:00 mouth 2 [place] 00 :00 (two) Medical times Branch daily. Magnesium 2022-0 Yes Take by [facility] 100 MG CAPS 3-21 mouth. Shanda e 10:29: Medicin e Melatonin 2-0 Yes Take by [facility] 10 MG TABS 3-21 mouth. Maria [place] 10:29: Medicin e furosemide 2-0 Yes 40mg Take 1 Unive [...] ity of tablet 00:00: mouth [place] 00 daily. Medical Branch furosemide Yes 40mg Take 1 [facility] rs 40 mg 3-17 tablet by ity of tablet 00:00: mouth [place] 00 daily. Medical Branch furosemide 0 Yes 40mg Take 1 [facility] rs 40 mg 3-17 tablet by ity of tablet 00:00: mouth [place] 00 daily. Medical Branch furosemide 0 Yes 40mg Take 1 [facility] rs 40 mg 3-17 tablet by ity of tablet 00:00: mouth [place] 00 daily. Medical Branch furosemide 2021-0 2- No 40mg Take 1 [facility] ers 40 mg 3-17 10-21 tablet by ity of tablet 00:00: 00:00 mouth [place] 00 :00 daily. Medical Branch furosemide 2021-0 2021- No 40mg Take 1 [facility] ers 40 mg 3-17 10-21 tablet by ity of tablet 00:00: 00:00 mouth [place] 00 :00 daily. Medical Branch furosemide 2021-2021- No 40mg Take 1 [facility] ers 40 mg 3-17 10-21 tablet by ity of tablet 00:00: 00:00 mouth [place] 00 :00 daily. Medical Branch ATORVASTATI 2020-02 Yes [id number] 40mg TAKE 1 [facility] N 40 mg 2-13 TABLET BY ity of tablet 00:00: [facility] [place] [facility] ATOR[facility] 2020-02 Yes [id number] 40mg TAKE 1 [facility] N 40 mg 2-13 TABLET BY ity of tablet 00:00: [facility]TH AT [place] [facility] ATORVASTATI 2020-02 Yes [id number] 40mg TAKE 1 [facility] N 40 mg 2-13 TABLET BY ity of tablet 00:00: [facility]TH AT [place] [facility] ATORVASTATI 2020-02 Yes [id number] 40mg TAKE 1 [facility] N 40 mg 2-13 TABLET BY ity of tablet 00:00: [facility]TH AT [place] [facility] ATORVASTATI 2020-02 Yes [id number] 40mg TAKE 1 [facility] N 40 mg 2-13 TABLET BY ity of tablet 00:00: MOUTH AT [place] [facility] Medical Branch ATORVASTA 2020-02 Yes [id number] 40mg TAKE 1 [facility] N 40 mg 2-13 TABLET BY ity of tablet 00:00: MOUTH AT [place] [facility] 2020-02 Yes [id number] 40mg TAKE 1 [facility] N 40 mg 2-13 TABLET BY ity of tablet 00:00: MOUTH AT [address] 2020-02 Yes [id number] 40mg TAKE 1 [facility] N 40 mg 2-13 TABLET BY ity of tablet 00:00: MOUTH AT [address] 2020-02 Yes [id number] 40mg TAKE 1 [facility] N 40 mg 2-13 TABLET BY ity of tablet 00:00: MOUTH AT [address] 2020-02 Yes [id number] 40mg TAKE 1 [facility] N 40 mg 2-13 TABLET BY ity of tablet 00:00: MOUTH AT [address] 2020-02 Yes [id number] 40mg TAKE 1 [facility] N 40 mg 2-13 TABLET BY ity of tablet 00:00: MOUTH AT [address] 2020-02 Yes [id number] 40mg TAKE 1 [facility] N 40 mg 2-13 TABLET BY ity of tablet 00:00: MOUTH AT [address] 2020-02 Yes [id number] 40mg TAKE 1 [facility] N 40 mg 2-13 TABLET BY ity of tablet 00:00: MOUTH AT [address] 2020-02 Yes [id number] 40mg TAKE 1 [facility] N 40 mg 2-13 TABLET BY ity of tablet 00:00: MOUTH AT [address] 2020-02- No [id number] 40mg TAKE 1 [facility] N 40 mg 2-13 10-21 TABLET BY ity of tablet 00:00: 00:00 MOUTH AT [place] 00 :00 [facility] 2020-02- No [id number] 40mg TAKE 1 [facility] N 40 mg 2-13 10-21 TABLET BY ity of tablet 00:00: 00:00 MOUTH AT [place] 00 :00 [facility] 2020-02- No [id number] 40mg TAKE 1 [facility] N 40 mg 2-13 10-21 TABLET BY ity of tablet 00:00: 00:00 MOUTH AT [place] 00 :00 [facility] azelastine 2020-02 Yes [id number] 1{spray Use 1 [facility] 137 mcg 2-02 } [place] in ity of (0.1 %) 00:00: each [place] nasal spray 00 nostril 2 Med ical (two) Branch times daily. Use in each nostril as directed fluticasone 2020-02 Yes [id number] 2{puff} Inhale 2 [facility] propionate 2-02 Puffs 2 ity of (FLOVENT 00:00: (two) [place] HFA) 44 00 times Medical mcg/actuati daily. Branch on inhaler Rinse mouth after each use. azelastine 2020-02 Yes [id number] 1{spray Use 1 [facility] 137 mcg 2-02 } [place] in ity of (0.1 %) 00:00: each [place] nasal spray 00 nostril 2 Med ical (two) Branch times daily. Use in each nostril as directed fluticasone 2020-02 Yes [id number] 2{puff} Inhale 2 [facility] propionate 2-02 Puffs 2 ity of (FLOVENT 00:00: (two) [place] HFA) 44 00 times Medical mcg/actuati daily. Branch on inhaler Rinse mouth after each use. azelastine 2020-02 Yes [id number] 1{spray Use 1 [facility] 137 mcg 2-02 } [place] in ity of (0.1 %) 00:00: each [place] nasal spray 00 nostril 2 Med ical (two) Branch times daily. Use in each nostril as directed fluticasone 2020-02 Yes [id number] 2{puff} Inhale 2 [facility] propionate 2-02 Puffs 2 ity of (FLOVENT 00:00: (two) [place] HFA) 44 00 times Medical mcg/actuati daily. Branch on inhaler Rinse mouth after each use. azelastine 2020-02 Yes [id number] 1{spray Use 1 [facility] 137 mcg 2-02 } [place] in ity of (0.1 %) 00:00: each [place] nasal spray 00 nostril 2 Med ical (two) Branch times daily. Use in each nostril as directed fluticasone 2020-02 Yes [id number] 2{puff} Inhale 2 [facility] propionate 2-02 Puffs 2 ity of (FLOVENT 00:00: (two) [place] HFA) 44 00 times Medical mcg/actuati daily. Branch on inhaler Rinse mouth after each use. azelastine 2020-02 Yes [id number] 1{spray Use 1 [facility] 137 mcg 2-02 } [place] in ity of (0.1 %) 00:00: each [place] nasal spray 00 nostril 2 Med ical (two) Branch times daily. Use in each nostril as directed fluticasone 2020-02 Yes [id number] 2{puff} Inhale 2 [facility] propionate 2-02 Puffs 2 ity of (FLOVENT 00:00: (two) [place] HFA) 44 00 times Medical mcg/actuati daily. Branch on inhaler Rinse mouth after each use. azelastine 2020-02 Yes [id number] 1{spray Use 1 [facility] 137 mcg 2-02 } [place] in ity of (0.1 %) 00:00: each [place] nasal spray 00 nostril 2 Med ical (two) Branch times daily. Use in each nostril as directed fluticasone 2020-02 Yes [id number] 2{puff} Inhale 2 [facility] propionate 2-02 Puffs 2 ity of (FLOVENT 00:00: (two) [place] HFA) 44 00 times Medical mcg/actuati daily. Branch on inhaler Rinse mouth after each use. azelastine 2020-02 Yes [id number] 1{spray Use 1 [facility] 137 mcg 2-02 } [place] in ity of (0.1 %) 00:00: each [place] nasal spray 00 nostril 2 Med ical (two) Branch times daily. Use in each nostril as directed fluticasone 2020-02 Yes [id number] 2{puff} Inhale 2 [facility] propionate 2-02 Puffs 2 ity of (FLOVENT 00:00: (two) [place] HFA) 44 00 times Medical mcg/actuati daily. Branch on inhaler Rinse mouth after each use. azelastine 2020-02 Yes [id number] 1{spray Use 1 [facility] 137 mcg 2-02 } [place] in ity of (0.1 %) 00:00: each [place] nasal spray 00 nostril 2 Med ical (two) Branch times daily. Use in each nostril as directed fluticasone 2020-02 Yes [id number] 2{puff} Inhale 2 [facility] propionate 2-02 Puffs 2 ity of (FLOVENT 00:00: (two) [place] HFA) 44 00 times Medical mcg/actuati daily. Branch on inhaler Rinse mouth after each use. azelastine 2020-02 Yes [id number] 1{spray Use 1 [facility] 137 mcg 2-02 } [place] in ity of (0.1 %) 00:00: each [place] nasal spray 00 nostril 2 Med ical (two) Branch times daily. Use in each nostril as directed fluticasone 2020-02 Yes [id number] 2{puff} Inhale 2 [facility] propionate 2-02 Puffs 2 ity of (FLOVENT 00:00: (two) [place] HFA) 44 00 times Medical mcg/actuati daily. Branch on inhaler Rinse mouth after each use. azelastine 2020-02 Yes [id number] 1{spray Use 1 [facility] 137 mcg 2-02 } [place] in ity of (0.1 %) 00:00: each [place] nasal spray 00 nostril 2 Med ical (two) Branch times daily. Use in each nostril as directed fluticasone 2020-02 Yes [id number] 2{puff} Inhale 2 [facility] propionate 2-02 Puffs 2 ity of (FLOVENT 00:00: (two) [place] HFA) 44 00 times Medical mcg/actuati daily. Branch on inhaler Rinse mouth after each use. azelastine 2020-02 Yes [id number] 1{spray Use 1 [facility] 137 mcg 2-02 } [place] in ity of (0.1 %) 00:00: each [place] nasal spray 00 nostril 2 Med ical (two) Branch times daily. Use in each nostril as directed fluticasone 2020-02 Yes [id number] 2{puff} Inhale 2 [facility] propionate 2-02 Puffs 2 ity of (FLOVENT 00:00: (two) [place] HFA) 44 00 times Medical mcg/actuati daily. Branch on inhaler Rinse mouth after each use. azelastine 2020-02 Yes [id number] 1{spray Use 1 [facility] 137 mcg 2-02 } [place] in ity of (0.1 %) 00:00: each [place] nasal spray 00 nostril 2 Med ical (two) Branch times daily. Use in each nostril as directed fluticasone 2020-02 Yes [id number] 2{puff} Inhale 2 [facility] propionate 2-02 Puffs 2 ity of (FLOVENT 00:00: (two) [place] HFA) 44 00 times Medical mcg/actuati daily. Branch on inhaler Rinse mouth after each use. azelastine 2020-02 Yes [id number] 1{spray Use 1 [facility] 137 mcg 2-02 } [place] in ity of (0.1 %) 00:00: each [place] nasal spray 00 nostril 2 Med ical (two) Branch times daily. Use in each nostril as directed fluticasone 2020-02 Yes [id number] 2{puff} Inhale 2 [facility] propionate 2-02 Puffs 2 ity of (FLOVENT 00:00: (two) [place] HFA) 44 00 times Medical mcg/actuati daily. Branch on inhaler Rinse mouth after each use. azelastine 2020-02 Yes [id number] 1{spray Use 1 [facility] 137 mcg 2-02 } [place] in ity of (0.1 %) 00:00: each [place] nasal spray 00 nostril 2 Med ical (two) Branch times daily. Use in each nostril as directed fluticasone 2020-02 Yes [id number] 2{puff} Inhale 2 [facility] propionate 2-02 Puffs 2 ity of (FLOVENT 00:00: (two) [place] HFA) 44 00 times Medical mcg/actuati daily. Branch on inhaler Rinse mouth after each use. azelastine 2020-02 Yes [id number] 1{spray Use 1 [facility] 137 mcg 2-02 } [place] in ity of (0.1 %) 00:00: each [place] nasal spray 00 nostril 2 Med ical (two) Branch times daily. Use in each nostril as directed fluticasone 2020-02 Yes [id number] 2{puff} Inhale 2 [facility] propionate 2-02 Puffs 2 ity of (FLOVENT 00:00: (two) [place] HFA) 44 00 times Medical mcg/actuati daily. Branch on inhaler Rinse mouth after each use. azelastine 2020-02 Yes [id number] 1{spray Use 1 [facility] 137 mcg 2-02 } [place] in ity of (0.1 %) 00:00: each [place] nasal spray 00 nostril 2 Med ical (two) Branch times daily. Use in each nostril as directed fluticasone 2020-02 Yes [id number] 2{puff} Inhale 2 [facility] propionate 2-02 Puffs 2 ity of (FLOVENT 00:00: (two) [place] HFA) 44 00 times Medical mcg/actuati daily. Branch on inhaler Rinse mouth after each use. azelastine 2020-02 Yes [id number] 1{spray Use 1 [facility] 137 mcg 2-02 } [place] in ity of (0.1 %) 00:00: each [place] nasal spray 00 nostril 2 Med ical (two) Branch times daily. Use in each nostril as directed fluticasone 2020-02 Yes [id number] 2{puff} Inhale 2 [facility] propionate 2-02 Puffs 2 ity of (FLOVENT 00:00: (two) [place] HFA) 44 00 times Medical mcg/actuati daily. Branch on inhaler Rinse mouth after each use. azelastine 2020-02 Yes [id number] 1{spray Use 1 [facility] 137 mcg 2-02 } [place] in ity of (0.1 %) 00:00: each [place] nasal spray 00 nostril 2 Med ical (two) Branch times daily. Use in each nostril as directed fluticasone 2020-02 Yes [id number] 2{puff} Inhale 2 [facility] propionate 2-02 Puffs 2 ity of (FLOVENT 00:00: (two) [place] HFA) 44 00 times Medical mcg/actuati daily. Branch on inhaler Rinse mouth after each use. azelastine 2020-02 Yes [id number] 1{spray Use 1 [facility] 137 mcg 2-02 } [place] in ity of (0.1 %) 00:00: each [place] nasal spray 00 nostril 2 Med ical (two) Branch times daily. Use in each nostril as directed fluticasone 2020-02 Yes [id number] 2{puff} Inhale 2 [facility] propionate 2-02 Puffs 2 ity of (FLOVENT 00:00: (two) [place] HFA) 44 00 times Medical mcg/actuati daily. Branch on inhaler Rinse mouth after each use. azelastine 2020-02 Yes [id number] 1{spray Use 1 [facility] 137 mcg 2-02 } [place] in ity of (0.1 %) 00:00: each [place] nasal spray 00 nostril 2 Med ical (two) Branch times daily. Use in each nostril as directed fluticasone 2020-02 Yes [id number] 2{puff} Inhale 2 [facility] propionate 2-02 Puffs 2 ity of (FLOVENT 00:00: (two) [place] HFA) 44 00 times Medical mcg/actuati daily. Branch on inhaler Rinse mouth after each use. azelastine 2020-02 Yes [id number] 1{spray Use 1 [facility] 137 mcg 2-02 } [place] in ity of (0.1 %) 00:00: each [place] nasal spray 00 nostril 2 Med ical (two) Branch times daily. Use in each nostril as directed fluticasone 2020-02 Yes [id number] 2{puff} Inhale 2 [facility] propionate 2-02 Puffs 2 ity of (FLOVENT 00:00: (two) [place] HFA) 44 00 times Medical mcg/actuati daily. Branch on inhaler Rinse mouth after each use. azelastine 2020-02 Yes [id number] 1{spray Use 1 [facility] 137 mcg 2-02 } [place] in ity of (0.1 %) 00:00: each [place] nasal spray 00 nostril 2 Med ical (two) Branch times daily. Use in each nostril as directed fluticasone 2020-02 Yes [id number] 2{puff} Inhale 2 [facility] propionate 2-02 Puffs 2 ity of (FLOVENT 00:00: (two) [place] HFA) 44 00 times Medical mcg/actuati daily. Branch on inhaler Rinse mouth after each use. azelastine 2020-02 Yes [id number] 1{spray Use 1 [facility] 137 mcg 2-02 } [place] in ity of (0.1 %) 00:00: each [place] nasal spray 00 nostril 2 Med ical (two) Branch times daily. Use in each nostril as directed fluticasone 2020-02 Yes [id number] 2{puff} Inhale 2 [facility] propionate 2-02 Puffs 2 ity of (FLOVENT 00:00: (two) [place] HFA) 44 00 times Medical mcg/actuati daily. Branch on inhaler Rinse mouth after each use. azelastine 2020-02 Yes [id number] 1{spray Use 1 [facility] 137 mcg 2-02 } [place] in ity of (0.1 %) 00:00: each [place] nasal spray 00 nostril 2 Med ical (two) Branch times daily. Use in each nostril as directed fluticasone 2020-02 Yes [id number] 2{puff} Inhale 2 [facility] propionate 2-02 Puffs 2 ity of (FLOVENT 00:00: (two) [place] HFA) 44 00 times Medical mcg/actuati daily. Branch on inhaler Rinse mouth after each use. azelastine 2020-02 Yes [id number] 1{spray Use 1 [facility] 137 mcg 2-02 } [place] in ity of (0.1 %) 00:00: each [place] nasal spray 00 nostril 2 Med ical (two) Branch times daily. Use in each nostril as directed fluticasone 2020-02 Yes [id number] 2{puff} Inhale 2 [facility] propionate 2-02 Puffs 2 ity of (FLOVENT 00:00: (two) [place] HFA) 44 00 times Medical mcg/actuati daily. Branch on inhaler Rinse mouth after each use. azelastine 2020-02 Yes [id number] 1{spray Use 1 [facility] 137 mcg 2-02 } [place] in ity of (0.1 %) 00:00: each [place] nasal spray 00 nostril 2 Med ical (two) Branch times daily. Use in each nostril as directed fluticasone 2020-02 Yes [id number] 2{puff} Inhale 2 [facility] propionate 2-02 Puffs 2 ity of (FLOVENT 00:00: (two) [place] HFA) 44 00 times Medical mcg/actuati daily. Branch on inhaler Rinse mouth after each use. azelastine 2020-02 Yes [id number] 1{spray Use 1 [facility] 137 mcg 2-02 } [place] in ity of (0.1 %) 00:00: each [place] nasal spray 00 nostril 2 Med ical (two) Branch times daily. Use in each nostril as directed fluticasone 2020-02 Yes [id number] 2{puff} Inhale 2 [facility] propionate 2-02 Puffs 2 ity of (FLOVENT 00:00: (two) [place] HFA) 44 00 times Medical mcg/actuati daily. Branch on inhaler Rinse mouth after each use. azelastine 2020-02 Yes [id number] 1{spray Use 1 [facility] 137 mcg 2-02 } [place] in ity of (0.1 %) 00:00: each [place] nasal spray 00 nostril 2 Med ical (two) Branch times daily. Use in each nostril as directed fluticasone 2020-02 Yes [id number] 2{puff} Inhale 2 [facility] propionate 2-02 Puffs 2 ity of (FLOVENT 00:00: (two) [place] HFA) 44 00 times Medical mcg/actuati daily. Branch on inhaler Rinse mouth after each use. azelastine 2020-02 Yes [id number] 1{spray Use 1 [facility] 137 mcg 2-02 } [place] in ity of (0.1 %) 00:00: each [place] nasal spray 00 nostril 2 Med ical (two) Branch times daily. Use in each nostril as directed fluticasone 2020-02 Yes [id number] 2{puff} Inhale 2 [facility] propionate 2-02 Puffs 2 ity of (FLOVENT 00:00: (two) [place] HFA) 44 00 times Medical mcg/actuati daily. Branch on inhaler Rinse mouth after each use. azelastine 2020-02 Yes [id number] 1{spray Use 1 [facility] 137 mcg 2-02 } [place] in ity of (0.1 %) 00:00: each [place] nasal spray 00 nostril 2 Med ical (two) Branch times daily. Use in each nostril as directed fluticasone 2020-02 Yes [id number] 2{puff} Inhale 2 [facility] propionate 2-02 Puffs 2 ity of (FLOVENT 00:00: (two) [place] HFA) 44 00 times Medical mcg/actuati daily. Branch on inhaler Rinse mouth after each use. azelastine 2020-02 Yes [id number] 1{spray Use 1 [facility] 137 mcg 2-02 } [place] in ity of (0.1 %) 00:00: each [place] nasal spray 00 nostril 2 Med ical (two) Branch times daily. Use in each nostril as directed fluticasone 2020-02 Yes [id number] 2{puff} Inhale 2 [facility] propionate 2-02 Puffs 2 ity of (FLOVENT 00:00: (two) [place] HFA) 44 00 times Medical mcg/actuati daily. Branch on inhaler Rinse mouth after each use. azelastine 2020-02 Yes [id number] 1{spray Use 1 [facility] 137 mcg 2-02 } [place] in ity of (0.1 %) 00:00: each [place] nasal spray 00 nostril 2 Med ical (two) Branch times daily. Use in each nostril as directed fluticasone 2020-02 Yes [id number] 2{puff} Inhale 2 [facility] propionate 2-02 Puffs 2 ity of (FLOVENT 00:00: (two) [place] HFA) 44 00 times Medical mcg/actuati daily. Branch on inhaler Rinse mouth after each use. azelastine 2020-02 Yes [id number] 1{spray Use 1 [facility] 137 mcg 2-02 } [place] in ity of (0.1 %) 00:00: each [place] nasal spray 00 nostril 2 Med ical (two) Branch times daily. Use in each nostril as directed fluticasone 2020-02 Yes [id number] 2{puff} Inhale 2 [facility] propionate 2-02 Puffs 2 ity of (FLOVENT 00:00: (two) [place] HFA) 44 00 times Medical mcg/actuati daily. Branch on inhaler Rinse mouth after each use. azelastine 2020-02 Yes [id number] 1{spray Use 1 [facility] 137 mcg 2-02 } [place] in ity of (0.1 %) 00:00: each [place] nasal spray 00 nostril 2 Med ical (two) Branch times daily. Use in each nostril as directed fluticasone 2020-02 Yes [id number] 2{puff} Inhale 2 [facility] propionate 2-02 Puffs 2 ity of (FLOVENT 00:00: (two) [place] HFA) 44 00 times Medical mcg/actuati daily. Branch on inhaler Rinse mouth after each use. azelastine 2020-02 Yes [id number] 1{spray Use 1 [facility] 137 mcg 2-02 } [place] in ity of (0.1 %) 00:00: each [place] nasal spray 00 nostril 2 Med ical (two) Branch times daily. Use in each nostril as directed fluticasone 2020-02 Yes [id number] 2{puff} Inhale 2 [facility] propionate 2-02 Puffs 2 ity of (FLOVENT 00:00: (two) [place] HFA) 44 00 times Medical mcg/actuati daily. Branch on inhaler Rinse mouth after each use. azelastine 2020-02 Yes [id number] 1{spray Use 1 [facility] 137 mcg 2-02 } [place] in ity of (0.1 %) 00:00: each [place] nasal spray 00 nostril 2 Med ical (two) Branch times daily. Use in each nostril as directed fluticasone 2020-02 Yes [id number] 2{puff} Inhale 2 [facility] propionate 2-02 Puffs 2 ity of (FLOVENT 00:00: (two) [place] HFA) 44 00 times Medical mcg/actuati daily. Branch on inhaler Rinse mouth after each use. azelastine 2020-02 Yes [id number] 1{spray Use 1 [facility] 137 mcg 2-02 } [place] [facility] (0.1 %) 00:00: each [place] nasal spray 00 nostril 2 Med ical (two) Branch times daily. Use in each nostril as directed fluticasone 2020-02 Yes [id number] 2{puff} Inhale 2 [facility] propionate 2-02 Puffs 2 [facility]y of (FLOVENT 00:00: (two) [place] HFA) 44 00 times Medical mcg/actuati daily. Branch on inhaler Rinse mouth after each use. azelastine 2020-02 Yes [id number] 1{spray Use 1 [facility] 137 mcg 2-02 } [place] [facility] (0.1 %) 00:00: each [place] nasal spray 00 nostril 2 Med ical (two) Branch times daily. Use in each nostril as directed fluticasone 2020-02 Yes [id number] 2{puff} Inhale 2 [facility] propionate 2-02 Puffs 2 [facility]y of (FLOVENT 00:00: (two) [place] HFA) 44 00 times Medical mcg/actuati daily. Branch on inhaler Rinse mouth after each use. azelastine 2020-02 Yes [id number] 1{spray Use 1 [facility] 137 mcg 2-02 } [place] [facility] (0.1 %) 00:00: each [place] nasal spray 00 nostril 2 Med ical (two) Branch times daily. Use in each nostril as directed fluticasone 2020-02 Yes [id number] 2{puff} Inhale 2 [facility] propionate 2-02 Puffs 2 [facility]y of (FLOVENT 00:00: (two) [place] HFA) 44 00 times Medical mcg/actuati daily. Branch on inhaler Rinse mouth after each use. azelastine 2020-02 Yes [id number] 1{spray Use 1 [facility] 137 mcg 2-02 } [place] [facility] of (0.1 %) 00:00: each [place] nasal spray 00 nostril 2 Med ical (two) Branch times daily. Use in each nostril as directed fluticasone 2020-02 Yes [id number] 2{puff} Inhale 2 [facility] propionate 2-02 Puffs 2 ity of (FLOVENT 00:00: (two) [place] HFA) 44 00 times Medical mcg/actuati daily. Branch on inhaler Rinse mouth after each use. azelastine 2020-02 Yes [id number] 1{spray Use 1 [facility] 137 mcg 2-02 } [place] [facility] of (0.1 %) 00:00: each [place] nasal spray 00 nostril 2 Med ical (two) Branch times daily. Use in each nostril as directed fluticasone 2020-02 Yes [id number] 2{puff} Inhale 2 [facility] propionate 2-02 Puffs 2 ity of (FLOVENT 00:00: (two) [place] HFA) 44 00 times Medical mcg/actuati daily. Branch on inhaler Rinse mouth after each use. azelastine 2020-02 Yes [id number] 1{spray Use 1 [facility] 137 mcg 2-02 } [place] [facility] of (0.1 %) 00:00: each [place] nasal spray 00 nostril 2 Med ical (two) Branch times daily. Use in each nostril as directed fluticasone 2020-02 Yes [id number] 2{puff} Inhale 2 [facility] propionate 2-02 Puffs 2 [facility]y of (FLOVENT 00:00: (two) [place] HFA) 44 00 times Medical mcg/actuati daily. Branch on inhaler Rinse mouth after each use. azelastine 2020-02 Yes [id number] 1{spray Use 1 [facility] 137 mcg 2-02 } [place] [facility] of (0.1 %) 00:00: each [place] nasal spray 00 nostril 2 Med ical (two) Branch times daily. Use in each nostril as directed fluticasone 2020-02 Yes [id number] 2{puff} Inhale 2 [facility] propionate 2-02 Puffs 2 ity of (FLOVENT 00:00: (two) [place] [facility]FA) 44 00 times Medical mcg/actuati daily. Branch on inhaler Rinse mouth after each use. azelastine 2020-02 Yes [id number] 1{spray Use 1 [facility] 137 mcg 2-02 } [place] [facility] of (0.1 %) 00:00: each [place] nasal spray 00 nostril 2 Med ical (two) Branch times daily. Use in each nostril as directed fluticasone 2020-02 Yes [id number] 2{puff} Inhale 2 [facility] propionate 2-02 Puffs 2 ity of (FLOVENT 00:00: (two) [place] [facility]FA) 44 00 times Medical mcg/actuati daily. Branch on inhaler Rinse mouth after each use. azelastine 2020-02 Yes [id number] 1{spray Use 1 [facility] 137 mcg 2-02 } [place] [facility] of (0.1 %) 00:00: each [place] nasal spray 00 nostril 2 Med ical (two) Branch times daily. Use in each nostril as directed fluticasone 2020-02 Yes [id number] 2{puff} Inhale 2 [facility] propionate 2-02 Puffs 2 [facility]y of (FLOVENT 00:00: (two) [place] [facility]FA) 44 00 times Medical mcg/actuati daily. Branch on inhaler Rinse mouth after each use. azelastine 2020-02 Yes [id number] 1{spray Use 1 [facility] 137 mcg 2-02 } [place] [facility] of (0.1 %) 00:00: each [place] nasal spray 00 nostril 2 Med ical (two) Branch times daily. Use in each nostril as directed fluticasone 2020-02 Yes [id number] 2{puff} Inhale 2 [facility] propionate 2-02 Puffs 2 [facility]y of (FLOVENT 00:00: (two) [place] [facility]FA) 44 00 times Medical mcg/actuati daily. Branch on inhaler Rinse mouth after each use. azelastine 2020-02 Yes [id number] 1{spray Use 1 [facility] 137 mcg 2-02 } [place] [facility] of (0.1 %) 00:00: each [place] nasal spray 00 nostril 2 Med ical (two) Branch times daily. Use in each nostril as directed fluticasone 2020-02 Yes [id number] 2{puff} Inhale 2 [facility] propionate 2-02 Puffs 2 ity of (FLOVENT 00:00: (two) [place] [facility]FA) 44 00 times Medical mcg/actuati daily. Branch on inhaler Rinse mouth after each use. azelastine 2020-02 Yes [id number] 1{spray Use 1 [facility] 137 mcg 2-02 } [place] [facility] of (0.1 %) 00:00: each [place] nasal spray 00 nostril 2 Med ical (two) Branch times daily. Use in each nostril as directed fluticasone 2020-02 Yes [id number] 2{puff} Inhale 2 [facility] propionate 2-02 Puffs 2 [facility]y of (FLOVENT 00:00: (two) [place] [facility]FA) 44 00 times Medical mcg/actuati daily. Branch on inhaler Rinse mouth after each use. azelastine 2020-02 Yes [id number] 1{spray Use 1 [facility] 137 mcg 2-02 } [place] [facility] of (0.1 %) 00:00: each [place] nasal spray 00 nostril 2 Med ical (two) Branch times daily. Use in each nostril as directed fluticasone 2020-02 Yes [id number] 2{puff} Inhale 2 [facility] propionate 2-02 Puffs 2 [facility]y of (FLOVENT 00:00: (two) [place] [facility]FA) 44 00 times Medical mcg/actuati daily. Branch on inhaler Rinse mouth after each use. azelastine 2020-02 Yes [id number] 1{spray Use 1 [facility] 137 mcg 2-02 } [place] [facility] of (0.1 %) 00:00: each [place] nasal spray 00 nostril 2 Med ical (two) Branch times daily. Use in each nostril as directed fluticasone 2020-02 Yes [id number] 2{puff} Inhale 2 [facility] propionate 2-02 Puffs 2 [facility]y of (FLOVENT 00:00: (two) [place] [facility]FA) 44 00 times Medical mcg/actuati daily. Branch on inhaler Rinse mouth after each use. azelastine 2020-02 Yes [id number] 1{spray Use 1 [facility] 137 mcg 2-02 } [place] [facility] of (0.1 %) 00:00: each [place] nasal spray 00 nostril 2 Med ical (two) Branch times daily. Use in each nostril as directed fluticasone 2020-02 Yes [id number] 2{puff} Inhale 2 [facility] propionate 2-02 Puffs 2 [facility]y of (FLOVENT 00:00: (two) [place] [facility]FA) 44 00 times Medical mcg/actuati daily. Branch on inhaler Rinse mouth after each use. azelastine 2020-02 Yes [id number] 1{spray Use 1 [facility] 137 mcg 2-02 } [place] [facility] of (0.1 %) 00:00: each [place] nasal spray 00 nostril 2 Med ical (two) Branch times daily. Use in each nostril as directed fluticasone 2020-02 Yes [id number] 2{puff} Inhale 2 [facility] propionate 2-02 Puffs 2 [facility]y of (FLOVENT 00:00: (two) [place] [facility]FA) 44 00 times Medical mcg/actuati daily. Branch on inhaler Rinse mouth after each use. azelastine 2020-02 Yes [id number] 1{spray Use 1 [facility] 137 mcg 2-02 } [place] [facility] of (0.1 %) 00:00: each [place] nasal spray 00 nostril 2 Med ical (two) Branch times daily. Use in each nostril as directed fluticasone 2020-02 Yes [id number] 2{puff} Inhale 2 [facility] propionate 2-02 Puffs 2 [facility]y of (FLOVENT 00:00: (two) [place] [facility]FA) 44 00 times Medical mcg/actuati daily. Branch on inhaler Rinse mouth after each use. azelastine 2020-02 Yes [id number] 1{spray Use 1 [facility] 137 mcg 2-02 } [place] [facility] of (0.1 %) 00:00: each [place] nasal spray 00 nostril 2 Med ical (two) Branch times daily. Use in each nostril as directed fluticasone 2020-02 Yes [id number] 2{puff} Inhale 2 [facility] propionate 2-02 Puffs 2 [facility]y of (FLOVENT 00:00: (two) [place] [facility]FA) 44 00 times Medical mcg/actuati daily. Branch on inhaler Rinse mouth after each use. azelastine 2020-02 Yes [id number] 1{spray Use 1 [facility] 137 mcg 2-02 } [place] [facility] of (0.1 %) 00:00: each [place] nasal spray 00 nostril 2 Med ical (two) Branch times daily. Use in each nostril as directed fluticasone 2020-02 Yes [id number] 2{puff} Inhale 2 [facility] propionate 2-02 Puffs 2 [facility]y of (FLOVENT 00:00: (two) [place] [facility]FA) 44 00 times Medical mcg/actuati daily. Branch on inhaler Rinse mouth after each use. azelastine 2020-02 Yes [id number] 1{spray Use 1 [facility] 137 mcg 2-02 } [place] [facility] of (0.1 %) 00:00: each [place] nasal spray 00 nostril 2 Med ical (two) Branch times daily. Use in each nostril as directed fluticasone 2020-02 Yes [id number] 2{puff} Inhale 2 [facility] propionate 2-02 Puffs 2 [facility]y of (FLOVENT 00:00: (two) [place] [facility]FA) 44 00 times Medical mcg/actuati daily. Branch on inhaler Rinse mouth after each use. azelastine 2020-02 Yes [id number] 1{spray Use 1 [facility] 137 mcg 2-02 } [place] [facility] of (0.1 %) 00:00: each [place] nasal spray 00 nostril 2 Med ical (two) Branch times daily. Use in each nostril as directed fluticasone 2020-02 Yes [id number] 2{puff} Inhale 2 [facility] propionate 2-02 Puffs 2 ity of (FLOVENT 00:00: (two) [place] [facility]FA) 44 00 times Medical mcg/actuati daily. Branch on inhaler Rinse mouth after each use. azelastine 2020-02 Yes [id number] 1{spray Use 1 [facility] 137 mcg 2-02 } [place] [facility] of (0.1 %) 00:00: each [place] nasal spray 00 nostril 2 Med ical (two) Branch times daily. Use in each nostril as directed fluticasone 2020-02 Yes [id number] 2{puff} Inhale 2 [facility] propionate 2-02 Puffs 2 ity of (FLOVENT 00:00: (two) [place] [facility]FA) 44 00 times Medical mcg/actuati daily. Branch on inhaler Rinse mouth after each use. azelastine 2020-02 Yes [id number] 1{spray Use 1 [facility] 137 mcg 2-02 } [place] [facility] of (0.1 %) 00:00: each [place] nasal spray 00 nostril 2 Med ical (two) Branch times daily. Use in each nostril as directed fluticasone 2020-02 Yes [id number] 2{puff} Inhale 2 [facility] propionate 2-02 Puffs 2 ity of (FLOVENT 00:00: (two) [place] [facility]FA) 44 00 times Medical mcg/actuati daily. Branch on inhaler Rinse mouth after each use. azelastine 2020-02 Yes [id number] 1{spray Use 1 [facility] 137 mcg 2-02 } [place] [facility] of (0.1 %) 00:00: each [place] nasal spray 00 nostril 2 Med ical (two) Branch times daily. Use in each nostril as directed fluticasone 2020-02 Yes [id number] 2{puff} Inhale 2 [facility] propionate 2-02 Puffs 2 ity of (FLOVENT 00:00: (two) [place] [facility]FA) 44 00 times Medical mcg/actuati daily. Branch on inhaler Rinse mouth after each use. azelastine 2020-02 Yes [id number] 1{spray Use 1 [facility] 137 mcg 2-02 } [place] [facility] of (0.1 %) 00:00: each [place] nasal spray 00 nostril 2 Med ical (two) Branch times daily. Use in each nostril as directed fluticasone 2020-02 Yes [id number] 2{puff} Inhale 2 [facility] propionate 2-02 Puffs 2 ity of (FLOVENT 00:00: (two) [place] [facility]FA) 44 00 times Medical mcg/actuati daily. Branch on inhaler Rinse mouth after each use. azelastine 2020-02 Yes [id number] 1{spray Use 1 [facility] 137 mcg 2-02 } [place] [facility] of (0.1 %) 00:00: each [place] nasal spray 00 nostril 2 Med ical (two) Branch times daily. Use in each nostril as directed fluticasone 2020-02 Yes [id number] 2{puff} Inhale 2 [facility] propionate 2-02 Puffs 2 ity of (FLOVENT 00:00: (two) [place] [facility]FA) 44 00 times Medical mcg/actuati daily. Branch on inhaler Rinse mouth after each use. azelastine 2020-02 Yes [id number] 1{spray Use 1 [facility] 137 mcg 2-02 } [place] [facility] of (0.1 %) 00:00: each [place] nasal spray 00 nostril 2 Med ical (two) Branch times daily. Use in each nostril as directed fluticasone 2020-02 Yes [id number] 2{puff} Inhale 2 [facility] propionate 2-02 Puffs 2 ity of (FLOVENT 00:00: (two) [place] [facility]FA) 44 00 times Medical mcg/actuati daily. Branch on inhaler Rinse mouth after each use. azelastine 2020-02 Yes [id number] 1{spray Use 1 [facility] 137 mcg 2-02 } [place] [facility] of (0.1 %) 00:00: each [place] nasal spray 00 nostril 2 Med ical (two) Branch times daily. Use in each nostril as directed fluticasone 2020-02 Yes [id number] 2{puff} Inhale 2 [facility] propionate 2-02 Puffs 2 ity of (FLOVENT 00:00: (two) [place] [facility]FA) 44 00 times Medical mcg/actuati daily. Branch on inhaler Rinse mouth after each use. azelastine 2020-02 Yes [id number] 1{spray Use 1 [facility] 137 mcg 2-02 } [place] [facility] of (0.1 %) 00:00: each [place] nasal spray 00 nostril 2 Med ical (two) Branch times daily. Use in each nostril as directed fluticasone 2020-02 Yes [id number] 2{puff} Inhale 2 [facility] propionate 2-02 Puffs 2 ity of (FLOVENT 00:00: (two) [place] [facility]FA) 44 00 times Medical mcg/actuati daily. Branch on inhaler Rinse mouth after each use. azelastine 2020-02 Yes [id number] 1{spray Use 1 [facility] 137 mcg 2-02 } [place] in [facility] of (0.1 %) 00:00: each [place] nasal spray 00 nostril 2 Med ical (two) Branch times daily. Use in each nostril as directed fluticasone 2020-02 Yes [id number] 2{puff} Inhale 2 [facility] propionate 2-02 Puffs 2 ity of (FLOVENT 00:00: (two) [place] [facility]FA) 44 00 times Medical mcg/actuati daily. Branch on inhaler Rinse mouth after each use. azelastine 2020-02 Yes [id number] 1{spray Use 1 [facility] 137 mcg 2-02 } [place] in [facility] of (0.1 %) 00:00: each [place] nasal spray 00 nostril 2 Med ical (two) Branch times daily. Use in each nostril as directed fluticasone 2020-02 Yes [id number] 2{puff} Inhale 2 [facility] propionate 2-02 Puffs 2 ity of (FLOVENT 00:00: (two) [place] [facility]FA) 44 00 times Medical mcg/actuati daily. Branch on inhaler Rinse mouth after each use. azelastine 2020-02 Yes [id number] 1{spray Use 1 [facility] 137 mcg 2-02 } [place] [facility] of (0.1 %) 00:00: each [place] nasal spray 00 nostril 2 Med ical (two) Branch times daily. Use in each nostril as directed fluticasone 2020-02 Yes [id number] 2{puff} Inhale 2 [facility] propionate 2-02 Puffs 2 ity of (FLOVENT 00:00: (two) [place] [facility]FA) 44 00 times Medical mcg/actuati daily. Branch on inhaler Rinse mouth after each use. azelastine 2020-02 Yes [id number] 1{spray Use 1 [facility] 137 mcg 2-02 } [place] in [facility] of (0.1 %) 00:00: each [place] nasal spray 00 nostril 2 Med ical (two) Branch times daily. Use in each nostril as directed fluticasone 2020-02 Yes [id number] 2{puff} Inhale 2 [facility] propionate 2-02 Puffs 2 ity of (FLOVENT 00:00: (two) [place] [facility]FA) 44 00 times Medical mcg/actuati daily. Branch on inhaler Rinse mouth after each use. azelastine 2020-02 Yes [id number] 1{spray Use 1 [facility] 137 mcg 2-02 } [place] in [facility] of (0.1 %) 00:00: each [place] nasal spray 00 nostril 2 Med ical (two) Branch times daily. Use in each nostril as directed fluticasone 2020-02 Yes [id number] 2{puff} Inhale 2 [facility] propionate 2-02 Puffs 2 ity of (FLOVENT 00:00: (two) [place] [facility]FA) 44 00 times Medical mcg/actuati daily. Branch on inhaler Rinse mouth after each use. azelastine 2020-02 Yes [id number] 1{spray Use 1 [facility] 137 mcg 2-02 } [place] in [facility] of (0.1 %) 00:00: each [place] nasal spray 00 nostril 2 Med ical (two) Branch times daily. Use in each nostril as directed fluticasone 2020-02 Yes [id number] 2{puff} Inhale 2 [facility] propionate 2-02 Puffs 2 ity of (FLOVENT 00:00: (two) [place] [facility]FA) 44 00 times Medical mcg/actuati daily. Branch on inhaler Rinse mouth after each use. azelastine 2020-02 Yes [id number] 1{spray Use 1 [facility] 137 mcg 2-02 } [place] in [facility] of (0.1 %) 00:00: each [place] nasal spray 00 nostril 2 Med ical (two) Branch times daily. Use in each nostril as directed fluticasone 2020-02 Yes [id number] 2{puff} Inhale 2 [facility] propionate 2-02 Puffs 2 ity of (FLOVENT 00:00: (two) [place] [facility]FA) 44 00 times Medical mcg/actuati daily. Branch on inhaler Rinse mouth after each use. azelastine 2020-02 Yes [id number] 1{spray Use 1 [facility] 137 mcg 2-02 } [place] in [facility] of (0.1 %) 00:00: each [place] nasal spray 00 nostril 2 Med ical (two) Branch times daily. Use in each nostril as directed fluticasone 2020-02 Yes [id number] 2{puff} Inhale 2 [facility] propionate 2-02 Puffs 2 ity of (FLOVENT 00:00: (two) [place] [facility]FA) 44 00 times Medical mcg/actuati daily. Branch on inhaler Rinse mouth after each use. azelastine 2020-02 Yes [id number] 1{spray Use 1 [facility] 137 mcg 2-02 } [place] in [facility] of (0.1 %) 00:00: each [place] nasal spray 00 nostril 2 Med ical (two) Branch times daily. Use in each nostril as directed fluticasone 2020-02 Yes [id number] 2{puff} Inhale 2 [facility] propionate 2-02 Puffs 2 ity of (FLOVENT 00:00: (two) [place] [facility]FA) 44 00 times Medical mcg/actuati daily. Branch on inhaler Rinse mouth after each use. azelastine 2020-02 Yes [id number] 1{spray Use 1 [facility] 137 mcg 2-02 } [place] in [facility] of (0.1 %) 00:00: each [place] nasal spray 00 nostril 2 Med ical (two) Branch times daily. Use in each nostril as directed fluticasone 2020-02 Yes [id number] 2{puff} Inhale 2 [facility] propionate 2-02 Puffs 2 ity of (FLOVENT 00:00: (two) [place] [facility]FA) 44 00 times Medical mcg/actuati daily. Branch on inhaler Rinse mouth after each use. azelastine 2020-02 Yes [id number] 1{spray Use 1 [facility] 137 mcg 2-02 } [place] in [facility] of (0.1 %) 00:00: each [place] nasal spray 00 nostril 2 Med ical (two) Branch times daily. Use in each nostril as directed fluticasone 2020-02 Yes [id number] 2{puff} Inhale 2 [facility] propionate 2-02 Puffs 2 ity of (FLOVENT 00:00: (two) [place] [facility]FA) 44 00 times Medical mcg/actuati daily. Branch on inhaler Rinse mouth after each use. azelastine 2020-02 Yes [id number] 1{spray Use 1 [facility] 137 mcg 2-02 } [place] in [facility] of (0.1 %) 00:00: each [place] nasal spray 00 nostril 2 Med ical (two) Branch times daily. Use in each nostril as directed fluticasone 2020-02 Yes [id number] 2{puff} Inhale 2 [facility] propionate 2-02 Puffs 2 ity of (FLOVENT 00:00: (two) [place] [facility]FA) 44 00 times Medical mcg/actuati daily. Branch on inhaler Rinse mouth after each use. azelastine 2020-02 Yes [id number] 1{spray Use 1 [facility] 137 mcg 2-02 } [place] in [facility] of (0.1 %) 00:00: each [place] nasal spray 00 nostril 2 Med ical (two) Branch times daily. Use in each nostril as directed fluticasone 2020-02 Yes [id number] 2{puff} Inhale 2 [facility] propionate 2-02 Puffs 2 ity of (FLOVENT 00:00: (two) [place] [facility]FA) 44 00 times Medical mcg/actuati daily. Branch on inhaler Rinse mouth after each use. azelastine 2020-02 Yes [id number] 1{spray Use 1 [facility] 137 mcg 2-02 } [place] in [facility] of (0.1 %) 00:00: each [place] nasal spray 00 nostril 2 Med ical (two) Branch times daily. Use in each nostril as directed fluticasone 2020-02 Yes [id number] 2{puff} Inhale 2 [facility] propionate 2-02 Puffs 2 ity of (FLOVENT 00:00: (two) [place] [facility]FA) 44 00 times Medical mcg/actuati daily. Branch on inhaler Rinse mouth after each use. azelastine 2020-02 Yes [id number] 1{spray Use 1 [facility] 137 mcg 2-02 } [place] [facility] of (0.1 %) 00:00: each [place] nasal spray 00 nostril 2 Med ical (two) Branch times daily. Use in each nostril as directed fluticasone 2020-02 Yes [id number] 2{puff} Inhale 2 [facility] propionate 2-02 Puffs 2 ity of (FLOVENT 00:00: (two) [place] [facility]FA) 44 00 times Medical mcg/actuati daily. Branch on inhaler Rinse mouth after each use. azelastine 2020-02 Yes [id number] 1{spray Use 1 [facility] 137 mcg 2-02 } [place] [facility] of (0.1 %) 00:00: each [place] nasal spray 00 nostril 2 Med ical (two) Branch times daily. Use in each nostril as directed fluticasone 2020-02 Yes [id number] 2{puff} Inhale 2 [facility] propionate 2-02 Puffs 2 ity of (FLOVENT 00:00: (two) [place] [facility]) 44 00 times Medical mcg/actuati daily. Branch on inhaler Rinse mouth after each use. azelastine 2020-02 Yes [id number] 1{spray Use 1 [facility] 137 mcg 2-02 } [place] in [facility] of (0.1 %) 00:00: each [place] nasal spray 00 nostril 2 Med ical (two) Branch times daily. Use in each nostril as directed fluticasone 2020-02 Yes [id number] 2{puff} Inhale 2 [facility] propionate 2-02 Puffs 2 ity of (FLOVENT 00:00: (two) [place] [facility]FA) 44 00 times Medical mcg/actuati daily. Branch on inhaler Rinse mouth after each use. azelastine 2020-02 Yes [id number] 1{spray Use 1 [facility] 137 mcg 2-02 } [place] in [facility] of (0.1 %) 00:00: each [place] nasal spray 00 nostril 2 Med ical (two) Branch times daily. Use in each nostril as directed fluticasone 2020-02 Yes [id number] 2{puff} Inhale 2 [facility] propionate 2-02 Puffs 2 ity of (FLOVENT 00:00: (two) [place] [facility]FA) 44 00 times Medical mcg/actuati daily. Branch on inhaler Rinse mouth after each use. azelastine 2020-02 Yes [id number] 1{spray Use 1 [facility] 137 mcg 2-02 } [place] in [facility] of (0.1 %) 00:00: each [place] nasal spray 00 nostril 2 Med ical (two) Branch times daily. Use in each nostril as directed fluticasone 2020-02 Yes [id number] 2{puff} Inhale 2 [facility] propionate 2-02 Puffs 2 ity of (FLOVENT 00:00: (two) [place] [facility]FA) 44 00 times Medical mcg/actuati daily. Branch on inhaler Rinse mouth after each use. azelastine 2020-02 Yes [id number] 1{spray Use 1 [facility] 137 mcg 2-02 } [place] in [facility] of (0.1 %) 00:00: each [place] nasal spray 00 nostril 2 Med ical (two) Branch times daily. Use in each nostril as directed fluticasone 2020-02 Yes [id number] 2{puff} Inhale 2 [facility] propionate 2-02 Puffs 2 ity of (FLOVENT 00:00: (two) [place] [facility]FA) 44 00 times Medical mcg/actuati daily. Branch on inhaler Rinse mouth after each use. azelastine 2020-02 Yes [id number] 1{spray Use 1 [facility] 137 mcg 2-02 } [place] in [facility] of (0.1 %) 00:00: each [place] nasal spray 00 nostril 2 Med ical (two) Branch times daily. Use in each nostril as directed fluticasone 2020-02 Yes [id number] 2{puff} Inhale 2 [facility] propionate 2-02 Puffs 2 ity of (FLOVENT 00:00: (two) [place] [facility]FA) 44 00 times Medical mcg/actuati daily. Branch on inhaler Rinse mouth after each use. azelastine 2020-02 Yes [id number] 1{spray Use 1 [facility] 137 mcg 2-02 } [place] in [facility] of (0.1 %) 00:00: each [place] nasal spray 00 nostril 2 Med ical (two) Branch times daily. Use in each nostril as directed fluticasone 2020-02 Yes [id number] 2{puff} Inhale 2 [facility] propionate 2-02 Puffs 2 ity of (FLOVENT 00:00: (two) [place] [facility]FA) 44 00 times Medical mcg/actuati daily. Branch on inhaler Rinse mouth after each use. azelastine 2020-02 Yes [id number] 1{spray Use 1 [facility] 137 mcg 2-02 } [place] in [facility] of (0.1 %) 00:00: each [place] nasal spray 00 nostril 2 Med ical (two) Branch times daily. Use in each nostril as directed fluticasone 2020-02 Yes [id number] 2{puff} Inhale 2 [facility] propionate 2-02 Puffs 2 ity of (FLOVENT 00:00: (two) [place] [facility]FA) 44 00 times Medical mcg/actuati daily. Branch on inhaler Rinse mouth after each use. azelastine 2020-02 Yes [id number] 1{spray Use 1 [facility] 137 mcg 2-02 } [place] in [facility] of (0.1 %) 00:00: each [place] nasal spray 00 nostril 2 Med ical (two) Branch times daily. Use in each nostril as directed fluticasone 2020-02 Yes [id number] 2{puff} Inhale 2 [facility] propionate 2-02 Puffs 2 ity of (FLOVENT 00:00: (two) [place] [facility]FA) 44 00 times Medical mcg/actuati daily. Branch on inhaler Rinse mouth after each use. azelastine 2020-02 Yes [id number] 1{spray Use 1 [facility] 137 mcg 2-02 } [place] in [facility] of (0.1 %) 00:00: each [place] nasal spray 00 nostril 2 Med ical (two) Branch times daily. Use in each nostril as directed fluticasone 2020-02 Yes [id number] 2{puff} Inhale 2 [facility] propionate 2-02 Puffs 2 ity of (FLOVENT 00:00: (two) [place] [facility]FA) 44 00 times Medical mcg/actuati daily. Branch on inhaler Rinse mouth after each use. azelastine 2020-02 Yes [id number] 1{spray Use 1 [facility] 137 mcg 2-02 } [place] [facility] of (0.1 %) 00:00: each [place] nasal spray 00 nostril 2 Med ical (two) Branch times daily. Use in each nostril as directed fluticasone 2020-02 Yes [id number] 2{puff} Inhale 2 [facility] propionate 2-02 Puffs 2 ity of (FLOVENT 00:00: (two) [place] [facility]FA) 44 00 times Medical mcg/actuati daily. Branch on inhaler Rinse mouth after each use. azelastine 2020-02 Yes [id number] 1{spray Use 1 [facility] 137 mcg 2-02 } [place] in [facility] of (0.1 %) 00:00: each [place] nasal spray 00 nostril 2 Med ical (two) Branch times daily. Use in each nostril as directed fluticasone 2020-02 Yes [id number] 2{puff} Inhale 2 [facility] propionate 2-02 Puffs 2 ity of (FLOVENT 00:00: (two) [place] [facility]FA) 44 00 times Medical mcg/actuati daily. Branch on inhaler Rinse mouth after each use. azelastine 2020-02 Yes [id number] 1{spray Use 1 [facility] 137 mcg 2-02 } [place] in [facility] of (0.1 %) 00:00: each [place] nasal spray 00 nostril 2 Med ical (two) Branch times daily. Use in each nostril as directed fluticasone 2020-02 Yes [id number] 2{puff} Inhale 2 [facility] propionate 2-02 Puffs 2 ity of (FLOVENT 00:00: (two) [place] HFA) 44 00 times Medical mcg/actuati daily. Branch on inhaler Rinse mouth after each use. azelastine 2020-02 Yes [id number] 1{spray Use 1 [facility] 137 mcg 2-02 } [place] in [facility] of (0.1 %) 00:00: each [place] nasal spray 00 nostril 2 Med ical (two) Branch times daily. Use in each nostril as directed fluticasone 2020-02 Yes [id number] 2{puff} Inhale 2 [facility] propionate 2-02 Puffs 2 ity of (FLOVENT 00:00: (two) [place] HFA) 44 00 times Medical mcg/actuati daily. Branch on inhaler Rinse mouth after each use. mirtazapine 2020-02- No [id number] 7.5mg Take 1 [facility] 7.5 mg 03-1715 tablet by ity of tablet 00:00: 00:00 mouth at [place] 00 :00 bedtime. [facility] Magnesium 2020-02 Yes Take by [facility] 100 MG CAPS 1-10 mouth. [place] 15:46: of Medicin e Melatonin 2020-02 Yes Take by [facility] 10 MG TABS 1-10 mouth. [place] 15:46: of Medicin e oxybutynin 2020-02 Yes 10mg Take 1 [facility] (DITROPAN 1-[address] [facility] [employer] XL) 10 MG 00:00: mouth of [place] tablet 00 daily. Medicin e oxybutynin 2020-02 Yes 10mg Take 1 [facility] (DITROPAN 1-[address] [facility] [employer] XL) 10 MG 00:00: mouth of [place] tablet 00 daily. Medicin e oxybutynin 2020-02 202- No 10mg Take 1 [facility] ([facility] MG 00:00: 00:00 mouth of [place] tablet 00 :00 daily. Medicin e albuterol Yes [id number] 2{puff} Inhale 2 [facility] (PROAIR 9-03 Puffs ity of HFA) 90 00:00: every 6 [place] mcg/actuati 00 (six) Medical on inhaler hours as Branc h needed for Wheezing or Shortness of Breath. albuterol Yes [id number] 2{puff} Inhale 2 [facility] (PROAIR 9-03 Puffs ity of HFA) 90 00:00: every 6 [place] mcg/actuati 00 (six) Medical on inhaler hours as Branc h needed for Wheezing or Shortness of Breath. albuterol Yes [id number] 2{puff} Inhale 2 [facility] (PROAIR 9-03 Puffs ity of HFA) 90 00:00: every 6 [place] mcg/actuati 00 (six) Medical on inhaler hours as Branc h needed for Wheezing or Shortness of Breath. albuterol Yes [id number] 2{puff} Inhale 2 [facility] (PROAIR 9-03 Puffs ity of HFA) 90 00:00: every 6 [place] mcg/actuati 00 (six) Medical on inhaler hours as Branc h needed for Wheezing or Shortness of Breath. albuterol Yes [id number] 2{puff} Inhale 2 [facility] (PROAIR 9-03 Puffs ity of HFA) 90 00:00: every 6 [place] mcg/actuati 00 (six) Medical on inhaler hours as Branc h needed for Wheezing or Shortness of Breath. albuterol Yes [id number] 2{puff} Inhale 2 [facility] (PROAIR 9-03 Puffs ity of HFA) 90 00:00: every 6 [place] mcg/actuati 00 (six) Medical on inhaler hours as Branc h needed for Wheezing or Shortness of Breath. albuterol Yes [id number] 2{puff} Inhale 2 [facility] (PROAIR 9-03 Puffs ity of HFA) 90 00:00: every 6 [place] mcg/actuati 00 (six) Medical on inhaler hours as Branc h needed for Wheezing or Shortness of Breath. albuterol Yes [id number] 2{puff} Inhale 2 [facility] (PROAIR 9-03 Puffs ity of HFA) 90 00:00: every 6 [place] mcg/actuati 00 (six) Medical on inhaler hours as Branc h needed for Wheezing or Shortness of Breath. albuterol Yes [id number] 2{puff} Inhale 2 [facility] (PROAIR 9-03 Puffs ity of HFA) 90 00:00: every 6 [place] mcg/actuati 00 (six) Medical on inhaler hours as Branc h needed for Wheezing or Shortness of Breath. albuterol Yes [id number] 2{puff} Inhale 2 [facility] (PROAIR 9-03 Puffs ity of HFA) 90 00:00: every 6 [place] mcg/actuati 00 (six) Medical on inhaler hours as Branc h needed for Wheezing or Shortness of Breath. albuterol 0 Yes [id number] 2{puff} Inhale 2 [facility] (PROAIR 9-03 Puffs ity of HFA) 90 00:00: every 6 [place] mcg/actuati 00 (six) Medical on inhaler hours as Branc h needed for Wheezing or Shortness of Breath. albuterol Yes [id number] 2{puff} Inhale 2 [facility] (PROAIR 9-03 Puffs ity of HFA) 90 00:00: every 6 [place] mcg/actuati 00 (six) Medical on inhaler hours as Branc h needed for Wheezing or Shortness of Breath. albuterol Yes [id number] 2{puff} Inhale 2 [facility] (PROAIR 9-03 Puffs ity of HFA) 90 00:00: every 6 [place] mcg/actuati 00 (six) Medical on inhaler hours as Branc h needed for Wheezing or Shortness of Breath. albuterol Yes [id number] 2{puff} Inhale 2 [facility] (PROAIR 9-03 Puffs ity of HFA) 90 00:00: every 6 [place] mcg/actuati 00 (six) Medical on inhaler hours as Branc h needed for Wheezing or Shortness of Breath. albuterol Yes [id number] 2{puff} Inhale 2 [facility] (PROAIR 9-03 Puffs ity of HFA) 90 00:00: every 6 [place] mcg/actuati 00 (six) Medical on inhaler hours as Branc h needed for Wheezing or Shortness of Breath. albuterol Yes [id number] 2{puff} Inhale 2 [facility] (PROAIR 9-03 Puffs ity of HFA) 90 00:00: every 6 [place] mcg/actuati 00 (six) Medical on inhaler hours as Branc h needed for Wheezing or Shortness of Breath. albuterol Yes [id number] 2{puff} Inhale 2 [facility] (PROAIR 9-03 Puffs ity of HFA) 90 00:00: every 6 [place] mcg/actuati 00 (six) Medical on inhaler hours as Branc h needed for Wheezing or Shortness of Breath. albuterol Yes [id number] 2{puff} Inhale 2 [facility] (PROAIR 9-03 Puffs ity of HFA) 90 00:00: every 6 [place] mcg/actuati 00 (six) Medical on inhaler hours as Branc h needed for Wheezing or Shortness of Breath. albuterol Yes [id number] 2{puff} Inhale 2 [facility] (PROAIR 9-03 Puffs ity of HFA) 90 00:00: every 6 [place] mcg/actuati 00 (six) Medical on inhaler hours as Branc h needed for Wheezing or Shortness of Breath. albuterol Yes [id number] 2{puff} Inhale 2 [facility] (PROAIR 9-03 Puffs ity of HFA) 90 00:00: every 6 [place] mcg/actuati 00 (six) Medical on inhaler hours as Branc h needed for Wheezing or Shortness of Breath. albuterol Yes [id number] 2{puff} Inhale 2 [facility] (PROAIR 9-03 Puffs ity of HFA) 90 00:00: every 6 [place] mcg/actuati 00 (six) Medical on inhaler hours as Branc h needed for Wheezing or Shortness of Breath. albuterol Yes [id number] 2{puff} Inhale 2 [facility] (PROAIR 9-03 Puffs ity of HFA) 90 00:00: every 6 [place] mcg/actuati 00 (six) Medical on inhaler hours as Branc h needed for Wheezing or Shortness of Breath. albuterol Yes [id number] 2{puff} Inhale 2 [facility] (PROAIR 9-03 Puffs ity of HFA) 90 00:00: every 6 [place] mcg/actuati 00 (six) Medical on inhaler hours as Branc h needed for Wheezing or Shortness of Breath. albuterol Yes [id number] 2{puff} Inhale 2 [facility] (PROAIR 9-03 Puffs ity of HFA) 90 00:00: every 6 [place] mcg/actuati 00 (six) Medical on inhaler hours as Branc h needed for Wheezing or Shortness of Breath. albuterol Yes [id number] 2{puff} Inhale 2 [facility] (PROAIR 9-03 Puffs ity of HFA) 90 00:00: every 6 [place] mcg/actuati 00 (six) Medical on inhaler hours as Branc h needed for Wheezing or Shortness of Breath. albuterol Yes [id number] 2{puff} Inhale 2 [facility] (PROAIR 9-03 Puffs ity of HFA) 90 00:00: every 6 [place] mcg/actuati 00 (six) Medical on inhaler hours as Branc h needed for Wheezing or Shortness of Breath. albuterol 0 Yes [id number] 2{puff} Inhale 2 [facility] (PROAIR 9-03 Puffs ity of HFA) 90 00:00: every 6 [place] mcg/actuati 00 (six) Medical on inhaler hours as Branc h needed for Wheezing or Shortness of Breath. albuterol 0 Yes [id number] 2{puff} Inhale 2 [facility] (PROAIR 9-03 Puffs ity of HFA) 90 00:00: every 6 [place] mcg/actuati 00 (six) Medical on inhaler hours as Branc h needed for Wheezing or Shortness of Breath. albuterol Yes [id number] 2{puff} Inhale 2 [facility] (PROAIR 9-03 Puffs ity of HFA) 90 00:00: every 6 [place] mcg/actuati 00 (six) Medical on inhaler hours as Branc h needed for Wheezing or Shortness of Breath. albuterol Yes [id number] 2{puff} Inhale 2 [facility] (PROAIR 9-03 Puffs ity of HFA) 90 00:00: every 6 [place] mcg/actuati 00 (six) Medical on inhaler hours as Branc h needed for Wheezing or Shortness of Breath. albuterol 0 Yes [id number] 2{puff} Inhale 2 [facility] (PROAIR 9-03 Puffs ity of HFA) 90 00:00: every 6 [place] mcg/actuati 00 (six) Medical on inhaler hours as Branc h needed for Wheezing or Shortness of Breath. albuterol 0 Yes [id number] 2{puff} Inhale 2 [facility] (PROAIR 9-03 Puffs ity of HFA) 90 00:00: every 6 [place] mcg/actuati 00 (six) Medical on inhaler hours as Branc h needed for Wheezing or Shortness of Breath. albuterol 0 Yes [id number] 2{puff} Inhale 2 [facility] (PROAIR 9-03 Puffs ity of HFA) 90 00:00: every 6 [place] mcg/actuati 00 (six) Medical on inhaler hours as Branc h needed for Wheezing or Shortness of Breath. albuterol Yes [id number] 2{puff} Inhale 2 [facility] (PROAIR 9-03 Puffs ity of HFA) 90 00:00: every 6 [place] mcg/actuati 00 (six) Medical on inhaler hours as Branc h needed for Wheezing or Shortness of Breath. albuterol Yes [id number] 2{puff} Inhale 2 [facility] (PROAIR 9-03 Puffs ity of HFA) 90 00:00: every 6 [place] mcg/actuati 00 (six) Medical on inhaler hours as Branc h needed for Wheezing or Shortness of Breath. albuterol Yes [id number] 2{puff} Inhale 2 [facility] (PROAIR 9-03 Puffs ity of HFA) 90 00:00: every 6 [place] mcg/actuati 00 (six) Medical on inhaler hours as Branc h needed for Wheezing or Shortness of Breath. albuterol Yes [id number] 2{puff} Inhale 2 [facility] (PROAIR 9-03 Puffs ity of HFA) 90 00:00: every 6 [place] mcg/actuati 00 (six) Medical on inhaler hours as Branc h needed for Wheezing or Shortness of Breath. albuterol Yes [id number] 2{puff} Inhale 2 [facility] (PROAIR 9-03 Puffs ity of HFA) 90 00:00: every 6 [place] mcg/actuati 00 (six) Medical on inhaler hours as Branc h needed for Wheezing or Shortness of Breath. albuterol Yes [id number] 2{puff} Inhale 2 [facility] (PROAIR 9-03 Puffs ity of HFA) 90 00:00: every 6 [place] mcg/actuati 00 (six) Medical on inhaler hours as Branc h needed for Wheezing or Shortness of Breath. albuterol Yes [id number] 2{puff} Inhale 2 [facility] (PROAIR 9-03 Puffs ity of HFA) 90 00:00: every 6 [place] mcg/actuati 00 (six) Medical on inhaler hours as Branc h needed for Wheezing or Shortness of Breath. albuterol Yes [id number] 2{puff} Inhale 2 [facility] (PROAIR 9-03 Puffs ity of HFA) 90 00:00: every 6 [place] mcg/actuati 00 (six) Medical on inhaler hours as Branc h needed for Wheezing or Shortness of Breath. albuterol Yes [id number] 2{puff} Inhale 2 [facility] (PROAIR 9-03 Puffs ity of HFA) 90 00:00: every 6 [place] mcg/actuati 00 (six) Medical on inhaler hours as Branc h needed for Wheezing or Shortness of Breath. albuterol Yes [id number] 2{puff} Inhale 2 [facility] (PROAIR 9-03 Puffs ity of HFA) 90 00:00: every 6 [place] mcg/actuati 00 (six) Medical on inhaler hours as Branc h needed for Wheezing or Shortness of Breath. albuterol Yes [id number] 2{puff} Inhale 2 [facility] (PROAIR 9-03 Puffs ity of HFA) 90 00:00: every 6 [place] mcg/actuati 00 (six) Medical on inhaler hours as Branc h needed for Wheezing or Shortness of Breath. albuterol Yes [id number] 2{puff} Inhale 2 [facility] (PROAIR 9-03 Puffs ity of HFA) 90 00:00: every 6 [place] mcg/actuati 00 (six) Medical on inhaler hours as Branc h needed for Wheezing or Shortness of Breath. albuterol Yes [id number] 2{puff} Inhale 2 [facility] (PROAIR 9-03 Puffs ity of HFA) 90 00:00: every 6 [place] mcg/actuati 00 (six) Medical on inhaler hours as Branc h needed for Wheezing or Shortness of Breath. albuterol Yes [id number] 2{puff} Inhale 2 [facility] (PROAIR 9-03 Puffs ity of HFA) 90 00:00: every 6 [place] mcg/actuati 00 (six) Medical on inhaler hours as Branc h needed for Wheezing or Shortness of Breath. albuterol Yes [id number] 2{puff} Inhale 2 [facility] (PROAIR 9-03 Puffs ity of HFA) 90 00:00: every 6 [place] mcg/actuati 00 (six) Medical on inhaler hours as Branc h needed for Wheezing or Shortness of Breath. albuterol Yes [id number] 2{puff} Inhale 2 [facility] (PROAIR 9-03 Puffs ity of HFA) 90 00:00: every 6 [place] mcg/actuati 00 (six) Medical on inhaler hours as Branc h needed for Wheezing or Shortness of Breath. albuterol Yes [id number] 2{puff} Inhale 2 [facility] (PROAIR 9-03 Puffs ity of HFA) 90 00:00: every 6 [place] mcg/actuati 00 (six) Medical on inhaler hours as Branc h needed for Wheezing or Shortness of Breath. albuterol Yes [id number] 2{puff} Inhale 2 [facility] (PROAIR 9-03 Puffs ity of HFA) 90 00:00: every 6 [place] mcg/actuati 00 (six) Medical on inhaler hours as Branc h needed for Wheezing or Shortness of Breath. albuterol Yes [id number] 2{puff} Inhale 2 [facility] (PROAIR 9-03 Puffs ity of HFA) 90 00:00: every 6 [place] mcg/actuati 00 (six) Medical on inhaler hours as Branc h needed for Wheezing or Shortness of Breath. albuterol Yes [id number] 2{puff} Inhale 2 [facility] (PROAIR 9-03 Puffs ity of HFA) 90 00:00: every 6 [place] mcg/actuati 00 (six) Medical on inhaler hours as Branc h needed for Wheezing or Shortness of Breath. albuterol Yes [id number] 2{puff} Inhale 2 [facility] (PROAIR 9-03 Puffs ity of HFA) 90 00:00: every 6 [place] mcg/actuati 00 (six) Medical on inhaler hours as Branc h needed for Wheezing or Shortness of Breath. albuterol Yes [id number] 2{puff} Inhale 2 [facility] (PROAIR 9-03 Puffs ity of HFA) 90 00:00: every 6 [place] mcg/actuati 00 (six) Medical on inhaler hours as Branc h needed for Wheezing or Shortness of Breath. albuterol Yes [id number] 2{puff} Inhale 2 [facility] (PROAIR 9-03 Puffs ity of HFA) 90 00:00: every 6 [place] mcg/actuati 00 (six) Medical on inhaler hours as Branc h needed for Wheezing or Shortness of Breath. albuterol Yes [id number] 2{puff} Inhale 2 [facility] (PROAIR 9-03 Puffs ity of HFA) 90 00:00: every 6 [place] mcg/actuati 00 (six) Medical on inhaler hours as Branc h needed for Wheezing or Shortness of Breath. albuterol Yes [id number] 2{puff} Inhale 2 [facility] (PROAIR 9-03 Puffs ity of HFA) 90 00:00: every 6 [place] mcg/actuati 00 (six) Medical on inhaler hours as Branc h needed for Wheezing or Shortness of Breath. albuterol Yes [id number] 2{puff} Inhale 2 [facility] (PROAIR 9-03 Puffs ity of HFA) 90 00:00: every 6 [place] mcg/actuati 00 (six) Medical on inhaler hours as Branc h needed for Wheezing or Shortness of Breath. albuterol 0 Yes [id number] 2{puff} Inhale 2 [facility] (PROAIR 9-03 Puffs ity of HFA) 90 00:00: every 6 [place] mcg/actuati 00 (six) Medical on inhaler hours as Branc h needed for Wheezing or Shortness of Breath. albuterol 0 Yes [id number] 2{puff} Inhale 2 [facility] (PROAIR 9-03 Puffs ity of HFA) 90 00:00: every 6 [place] mcg/actuati 00 (six) Medical on inhaler hours as Branc h needed for Wheezing or Shortness of Breath. albuterol 0 Yes [id number] 2{puff} Inhale 2 [facility] (PROAIR 9-03 Puffs ity of HFA) 90 00:00: every 6 [place] mcg/actuati 00 (six) Medical on inhaler hours as Branc h needed for Wheezing or Shortness of Breath. albuterol Yes [id number] 2{puff} Inhale 2 [facility] (PROAIR 9-03 Puffs ity of HFA) 90 00:00: every 6 [place] mcg/actuati 00 (six) Medical on inhaler hours as Branc h needed for Wheezing or Shortness of Breath. albuterol Yes [id number] 2{puff} Inhale 2 [facility] (PROAIR 9-03 Puffs ity of HFA) 90 00:00: every 6 [place] mcg/actuati 00 (six) Medical on inhaler hours as Branc h needed for Wheezing or Shortness of Breath. albuterol Yes [id number] 2{puff} Inhale 2 [facility] (PROAIR 9-03 Puffs ity of HFA) 90 00:00: every 6 [place] mcg/actuati 00 (six) Medical on inhaler hours as Branc h needed for Wheezing or Shortness of Breath. albuterol Yes [id number] 2{puff} Inhale 2 [facility] (PROAIR 9-03 Puffs ity of HFA) 90 00:00: every 6 [place] mcg/actuati 00 (six) Medical on inhaler hours as Branc h needed for Wheezing or Shortness of Breath. albuterol Yes [id number] 2{puff} Inhale 2 [facility] (PROAIR 9-03 Puffs ity of HFA) 90 00:00: every 6 [place] mcg/actuati 00 (six) Medical on inhaler hours as Branc h needed for Wheezing or Shortness of Breath. albuterol Yes [id number] 2{puff} Inhale 2 [facility] (PROAIR 9-03 Puffs ity of HFA) 90 00:00: every 6 [place] mcg/actuati 00 (six) Medical on inhaler hours as Branc h needed for Wheezing or Shortness of Breath. albuterol 0 Yes [id number] 2{puff} Inhale 2 [facility] (PROAIR 9-03 Puffs ity of HFA) 90 00:00: every 6 [place] mcg/actuati 00 (six) Medical on inhaler hours as Branc h needed for Wheezing or Shortness of Breath. albuterol Yes [id number] 2{puff} Inhale 2 [facility] (PROAIR 9-03 Puffs ity of HFA) 90 00:00: every 6 [place] mcg/actuati 00 (six) Medical on inhaler hours as Branc h needed for Wheezing or Shortness of Breath. albuterol Yes [id number] 2{puff} Inhale 2 [facility] (PROAIR 9-03 Puffs ity of HFA) 90 00:00: every 6 [place] mcg/actuati 00 (six) Medical on inhaler hours as Branc h needed for Wheezing or Shortness of Breath. albuterol Yes [id number] 2{puff} Inhale 2 [facility] (PROAIR 9-03 Puffs ity of HFA) 90 00:00: every 6 [place] mcg/actuati 00 (six) Medical on inhaler hours as Branc h needed for Wheezing or Shortness of Breath. albuterol Yes [id number] 2{puff} Inhale 2 [facility] (PROAIR 9-03 Puffs ity of HFA) 90 00:00: every 6 [place] mcg/actuati 00 (six) Medical on inhaler hours as Branc h needed for Wheezing or Shortness of Breath. albuterol Yes [id number] 2{puff} Inhale 2 [facility] (PROAIR 9-03 Puffs ity of HFA) 90 00:00: every 6 [place] mcg/actuati 00 (six) Medical on inhaler hours as Branc h needed for Wheezing or Shortness of Breath. albuterol Yes [id number] 2{puff} Inhale 2 [facility] (PROAIR 9-03 Puffs ity of HFA) 90 00:00: every 6 [place] mcg/actuati 00 (six) Medical on inhaler hours as Branc h needed for Wheezing or Shortness of Breath. albuterol Yes [id number] 2{puff} Inhale 2 [facility] (PROAIR 9-03 Puffs ity of HFA) 90 00:00: every 6 [place] mcg/actuati 00 (six) Medical on inhaler hours as Branc h needed for Wheezing or Shortness of Breath. albuterol Yes [id number] 2{puff} Inhale 2 [facility] (PROAIR 9-03 Puffs ity of HFA) 90 00:00: every 6 [place] mcg/actuati 00 (six) Medical on inhaler hours as Branc h needed for Wheezing or Shortness of Breath. albuterol Yes [id number] 2{puff} Inhale 2 [facility] (PROAIR 9-03 Puffs ity of HFA) 90 00:00: every 6 [place] mcg/actuati 00 (six) Medical on inhaler hours as Branc h needed for Wheezing or Shortness of Breath. albuterol Yes [id number] 2{puff} Inhale 2 [facility] (PROAIR 9-03 Puffs ity of HFA) 90 00:00: every 6 [place] mcg/actuati 00 (six) Medical on inhaler hours as Branc h needed for Wheezing or Shortness of Breath. albuterol Yes [id number] 2{puff} Inhale 2 [facility] (PROAIR 9-03 Puffs ity of HFA) 90 00:00: every 6 [place] mcg/actuati 00 (six) Medical on inhaler hours as Branc h needed for Wheezing or Shortness of Breath. albuterol Yes [id number] 2{puff} Inhale 2 [facility] (PROAIR 9-03 Puffs ity of HFA) 90 00:00: every 6 [place] mcg/actuati 00 (six) Medical on inhaler hours as Branc h needed for Wheezing or Shortness of Breath. albuterol Yes [id number] 2{puff} Inhale 2 [facility] (PROAIR 9-03 Puffs ity of HFA) 90 00:00: every 6 [place] mcg/actuati 00 (six) Medical on inhaler hours as Branc h needed for Wheezing or Shortness of Breath. albuterol Yes [id number] 2{puff} Inhale 2 [facility] (PROAIR 9-03 Puffs ity of HFA) 90 00:00: every 6 [place] mcg/actuati 00 (six) Medical on inhaler hours as Branc h needed for Wheezing or Shortness of Breath. albuterol Yes [id number] 2{puff} Inhale 2 [facility] (PROAIR 9-03 Puffs ity of HFA) 90 00:00: every 6 [place] mcg/actuati 00 (six) Medical on inhaler hours as Branc h needed for Wheezing or Shortness of Breath. albuterol Yes [id number] 2{puff} Inhale 2 [facility] (PROAIR 9-03 Puffs ity of HFA) 90 00:00: every 6 [place] mcg/actuati 00 (six) Medical on inhaler hours as Branc h needed for Wheezing or Shortness of Breath. albuterol Yes [id number] 2{puff} Inhale 2 [facility] (PROAIR 9-03 Puffs ity of HFA) 90 00:00: every 6 [place] mcg/actuati 00 (six) Medical on inhaler hours as Branc h needed for Wheezing or Shortness of Breath. albuterol Yes [id number] 2{puff} Inhale 2 [facility] (PROAIR 9-03 Puffs ity of HFA) 90 00:00: every 6 [place] mcg/actuati 00 (six) Medical on inhaler hours as Branc h needed for Wheezing or Shortness of Breath. albuterol Yes [id number] 2{puff} Inhale 2 [facility] (PROAIR 9-03 Puffs ity of HFA) 90 00:00: every 6 [place] mcg/actuati 00 (six) Medical on inhaler hours as Branc h needed for Wheezing or Shortness of Breath. albuterol 0 Yes [id number] 2{puff} Inhale 2 [facility] (PROAIR 9-03 Puffs ity of HFA) 90 00:00: every 6 [place] mcg/actuati 00 (six) Medical on inhaler hours as Branc h needed for Wheezing or Shortness of Breath. albuterol 0 Yes [id number] 2{puff} Inhale 2 [facility] (PROAIR 9-03 Puffs ity of HFA) 90 00:00: every 6 [place] mcg/actuati 00 (six) Medical on inhaler hours as Branc h needed for Wheezing or Shortness of Breath. albuterol 0 Yes [id number] 2{puff} Inhale 2 [facility] (PROAIR 9-03 Puffs ity of HFA) 90 00:00: every 6 [place] mcg/actuati 00 (six) Medical on inhaler hours as Branc h needed for Wheezing or Shortness of Breath. albuterol Yes [id number] 2{puff} Inhale 2 [facility] (PROAIR 9-03 Puffs ity of HFA) 90 00:00: every 6 [place] mcg/actuati 00 (six) Medical on inhaler hours as Branc h needed for Wheezing or Shortness of Breath. albuterol Yes [id number] 2{puff} Inhale 2 [facility] (PROAIR 9-03 Puffs ity of HFA) 90 00:00: every 6 [place] mcg/actuati 00 (six) Medical on inhaler hours as Branc h needed for Wheezing or Shortness of Breath. albuterol Yes [id number] 2{puff} Inhale 2 [facility] (PROAIR 9-03 Puffs ity of HFA) 90 00:00: every 6 [place] mcg/actuati 00 (six) Medical on inhaler hours as Branc h needed for Wheezing or Shortness of Breath. amLODIPine 2021- No [id number] 2.5mg Take 1 [facility] 2.5 mg 07-20 tablet by ity of tablet 00:00: 00:00 mouth [place] 00 :00 daily. [facility] amLODIPine 2021- No [id number] 2.5mg Take 1 [facility] 2.5 mg 07-20 tablet by ity of tablet 00:00: 00:00 mouth [place] 00 :00 daily. [facility] hydroCHLORO 2020-2021- No [id number] 25mg Take 1 [facility] thiazide 25 07-2015 tablet by it y of mg tablet 00:00: 00:00 mouth [place] 00 :00 daily. [facility] hydrochloro 2020- No 25mg Take 25 mg [facility] thiazide 3-04 05-22 by mouth [facility] (HYDRODIURI 16:58: 00:00 daily. of L) 25 MG 25 :00 Medicin tablet e Magnesium Yes Take by [facility] 100 MG CAPS 3- mouth. [facility] 15:58: of 46 Medicin e Melatonin Yes Take by [facility] 10 MG TABS - mouth. [facility] 15:58: of 46 Medicin e hydrochloro 2020-0 Yes 25mg Take 1 [facility] thiazide 3-22 [facility]t [facility] (HYDRODIURI 00:00: mouth of L) 25 MG 00 daily. Medicin tablet e Potassium Yes Take 2 [facility] Citrate 3-22 tablets PO [facility] (UROCIT-K 00:00: TID of 10) 10 MEQ 00 Medicin (1080 MG) e TBCR hydrochloro 2020-0 Yes 25mg Take 1 [facility] thiazide 3-22 [facility]t [facility] (HYDRODIURI 00:00: mouth of L) 25 MG 00 daily. Medicin tablet e Potassium Yes Take 2 [facility] Citrate 3-22 tablets PO [facility] (UROCIT-K 00:00: TID of 10) 10 MEQ 00 Medicin (1080 MG) e TBCR hydrochloro 2020-0 Yes 25mg Take 1 [facility] thiazide [...] CR tablet 00 daily. Medicin e hydrochloro 2020-0 2021- No 25mg Take 1 [facility] thiazide 3-22 09-19 Tablet by Colle [...] hydrochloro 2019-02 Yes 25mg Take 25 mg [facility] thiazide 1-23 by mouth [place] (HYDRODIURI 17:00: daily. of L) 25 MG 06 Medicin tablet e Magnesium 2019-02 Yes Take by [facility] 100 MG CAPS 03-07 mouth. Colleg e 17:00: of Medicin e Melatonin 2019-02 Yes Take by [facility] 10 MG TABS 03-07 mouth. College 17:00: of Medicin e Potassium [...] TBCR levothyroxi 2019-02 Yes 25ug Take 25 [place] [facility] ne 1-02 mcg by [place] (SYNTHROID) 00:00: mouth. of 25 MCG 00 Medicin tablet e levothyroxi 2019-02 Yes 25ug Take 25 [place] [facility] ne 1-02 mcg by [place] (SYNTHROID) 00:00: mouth. of 25 MCG 00 Medicin tablet e levothyroxi 2019-02- No 25ug Take 25 [facility] ne 1-02 11-10 mcg by [place] (SYNTHROID) 00:00: 00:00 mouth. of 25 MCG 00 :00 Medicin tablet e aspirin 81 2019-02 Yes [id number] 81mg Take 1 [facility] mg chewable 0-01 [id number] tablet by i ty of tablet 00:00: mouth [place] 00 daily. [facility] aspirin 81 2019-02 Yes [id number] 81mg Take 1 [facility] mg chewable 0-01 [id number] tablet by i ty of tablet 00:00: mouth [place] 00 daily. [facility] aspirin 81 2019-02 Yes [id number] 81mg Take 1 [facility] mg chewable 0-01 [id number] tablet by i ty of tablet 00:00: mouth [place] 00 daily. [facility] aspirin 81 2019-02 Yes [id number] 81mg Take 1 [facility] mg chewable 0-01 [id number] tablet by i ty of tablet 00:00: mouth [place] 00 daily. [facility] aspirin 81 2019-02 Yes [id number] 81mg Take 1 [facility] mg chewable 0-01 [id number] tablet by i ty of tablet 00:00: mouth [place] 00 daily. [facility] aspirin 81 2020- Yes [id number] 81mg Take 1 [facility] mg chewable 0-01 [id number] tablet by i ty of tablet 00:00: mouth [place] 00 daily. [facility] aspirin 81 2020- Yes [id number] 81mg Take 1 [facility] mg chewable 0-01 [id number] tablet by i ty of tablet 00:00: mouth [place] 00 daily. [facility] aspirin 81 2020- Yes [id number] 81mg Take 1 [facility] mg chewable 0-01 [id number] tablet by i ty of tablet 00:00: mouth [place] 00 daily. [facility] aspirin 81 2020- Yes [id number] 81mg Take 1 [facility] mg chewable 0-01 [id number] tablet by i ty of tablet 00:00: mouth [place] 00 daily. [facility] aspirin 81 2020- Yes [id number] 81mg Take 1 [facility] mg chewable 0-01 [id number] tablet by i ty of tablet 00:00: mouth [place] 00 daily. [facility] aspirin 81 2020- Yes [id number] 81mg Take 1 [facility] mg chewable 0-01 [id number] tablet by i ty of tablet 00:00: mouth [place] 00 daily. [facility] aspirin 81 2020- Yes [id number] 81mg Take 1 [facility] che[facility]able [facility]-01 [id number] tablet by i ty of tablet 00:00: mouth [place] 00 daily. [facility] aspirin 81 2020- Yes [id number] 81mg Take 1 [facility] mg chewable 0-01 [id number] tablet by i ty of tablet 00:00: mouth [place] 00 daily. [facility] aspirin 81 2020- Yes [id number] 81mg Take 1 [facility] mg chewable 0-01 [id number] tablet by i ty of tablet 00:00: mouth [place] 00 daily. [facility] aspirin 81 2020- Yes [id number] 81mg Take 1 [facility] mg chewable 0-01 [id number] tablet by i ty of tablet 00:00: mouth [place] 00 daily. [facility] aspirin 81 2020- Yes [id number] 81mg Take 1 [facility] mg chewable 0-01 [id number] tablet by i ty of tablet 00:00: mouth [place] 00 daily. [facility] aspirin 81 2020- Yes [id number] 81mg Take 1 [facility] mg chewable 0-01 [id number] tablet by i ty of tablet 00:00: mouth [place] 00 daily. [facility] aspirin 81 2020- Yes [id number] 81mg Take 1 [facility] mg chewable 0-01 [id number] tablet by i ty of tablet 00:00: mouth [place] 00 daily. [facility] aspirin 81 2020- Yes [id number] 81mg Take 1 [facility] mg chewable 0-01 [id number] tablet by i ty of tablet 00:00: mouth [place] 00 daily. [facility] aspirin 81 2020- Yes [id number] 81mg Take 1 [facility] mg chewable 0-01 [id number] tablet by i ty of tablet 00:00: mouth [place] 00 daily. [facility] aspirin 81 2020- Yes [id number] 81mg Take 1 [facility] mg chewable 0-01 [id number] tablet by i ty of tablet 00:00: mouth [place] 00 daily. [facility] aspirin 81 2019- Yes [id number] 81mg Take 1 [facility] mg chewable 0-01 [id number] tablet by i ty of tablet 00:00: mouth [place] 00 daily. [facility] aspirin 81 2020- Yes [id number] 81mg Take 1 [facility] mg chewable 0-01 [id number] tablet by i ty of tablet 00:00: mouth [place] 00 daily. [facility] aspirin 81 2019- Yes [id number] 81mg Take 1 [facility] mg chewable 0-01 [id number] tablet by i ty of tablet 00:00: mouth [place] 00 daily. [facility] aspirin 81 2020- Yes [id number] 81mg Take 1 [facility] mg chewable 0-01 [id number] tablet by i ty of tablet 00:00: mouth [place] 00 daily. [facility] aspirin 81 2020- Yes [id number] 81mg Take 1 [facility] mg chewable 0-01 [id number] tablet by i ty of tablet 00:00: mouth [place] 00 daily. [facility] aspirin 81 2020- Yes [id number] 81mg Take 1 [facility] mg chewable 0-01 [id number] tablet by i ty of tablet 00:00: mouth [place] 00 daily. [facility] aspirin 81 2020- Yes [id number] 81mg Take 1 [facility] chewable 0-01 [id number] tablet by i ty of tablet 00:00: mouth [place] 00 daily. [facility] aspirin 81 2020- Yes [id number] 81mg Take 1 [facility] mg chewable 0-01 [id number] tablet by i ty of tablet 00:00: mouth [place] 00 daily. [facility] aspirin 81 2020- Yes [id number] 81mg Take 1 [facility] mg chewable 0-01 [id number] tablet by i ty of tablet 00:00: mouth [place] 00 daily. [facility] aspirin 81 2020- Yes [id number] 81mg Take 1 [facility] mg chewable 0-01 [id number] tablet by i ty of tablet 00:00: mouth [place] 00 daily. [facility] aspirin 81 2020- Yes [id number] 81mg Take 1 [facility] mg chewable 0-01 [id number] tablet by i ty of tablet 00:00: mouth [place] 00 daily. [facility] aspirin 81 2020- Yes [id number] 81mg Take 1 [facility] mg chewable 0-01 [id number] tablet by i ty of tablet 00:00: mouth [place] 00 daily. [facility] aspirin 81 2020- Yes [id number] 81mg Take 1 [facility] chewable 0-01 [id number] tablet by i ty of tablet 00:00: mouth [place] 00 daily. [facility] aspirin 81 2020- Yes [id number] 81mg Take 1 [facility] mg chewable 0-01 [id number] tablet by i ty of tablet 00:00: mouth [place] 00 daily. [facility] aspirin 81 2020- Yes [id number] 81mg Take 1 [facility] chewable 0-01 [id number] tablet by i ty of tablet 00:00: mouth [place] 00 daily. [facility] aspirin 81 2020- Yes [id number] 81mg Take 1 [facility] chewable 0-01 [id number] tablet by i ty of tablet 00:00: mouth [place] 00 daily. [facility] aspirin 81 2020- Yes [id number] 81mg Take 1 [facility] mg chewable 0-01 [id number] tablet by i ty of tablet 00:00: mouth [place] 00 daily. [facility] aspirin 81 2020- Yes [id number] 81mg Take 1 [facility] mg chewable 0-01 [id number] tablet by i ty of tablet 00:00: mouth [place] 00 daily. [facility] aspirin 81 2020- Yes [id number] 81mg Take 1 [facility] mg chewable 0-01 [id number] tablet by i ty of tablet 00:00: mouth [place] 00 daily. [facility] aspirin 81 2020- Yes [id number] 81mg Take 1 [facility] mg chewable 0-01 [id number] tablet by i ty of tablet 00:00: mouth [place] 00 daily. [facility] aspirin 81 2020- Yes [id number] 81mg Take 1 [facility] mg chewable 0-01 [id number] tablet by i ty of tablet 00:00: mouth [place] 00 daily. [facility] aspirin 81 2020- Yes [id number] 81mg Take 1 [facility] mg chewable 0-01 [id number] tablet by i ty of tablet 00:00: mouth [place] 00 daily. [facility] aspirin 81 2020- Yes [id number] 81mg Take 1 [facility] mg chewable 0-01 [id number] tablet by i ty of tablet 00:00: mouth [place] 00 daily. [facility] aspirin 81 2020- Yes [id number] 81mg Take 1 [facility] mg chewable 0-01 [id number] tablet by i ty of tablet 00:00: mouth [place] 00 daily. [facility] aspirin 81 2020- Yes [id number] 81mg Take 1 [facility] chewable 0-01 [id number] tablet by i ty of tablet 00:00: mouth [place] 00 daily. [facility] aspirin 81 2019- Yes [id number] 81mg Take 1 [facility] mg chewable 0-01 [id number] tablet by i ty of tablet 00:00: mouth [place] 00 daily. [facility] aspirin 81 2020- Yes [id number] 81mg Take 1 [facility] chewable 0-01 [id number] tablet by i ty of tablet 00:00: mouth [place] 00 daily. [facility] aspirin 81 2019- Yes [id number] 81mg Take 1 [facility] chewable 0-01 [id number] tablet by i ty of tablet 00:00: mouth [place] 00 daily. [facility] aspirin 81 2020- Yes [id number] 81mg Take 1 [facility] mg chewable 0-01 [id number] tablet by i ty of tablet 00:00: mouth [place] 00 daily. [facility] aspirin 81 2020- Yes [id number] 81mg Take 1 [facility] chewable 0-01 [id number] tablet by i ty of tablet 00:00: mouth [place] 00 daily. [facility] aspirin 81 2020- Yes [id number] 81mg Take 1 [facility] mg chewable 0-01 [id number] tablet by i ty of tablet 00:00: mouth [place] 00 daily. [facility] aspirin 81 2020- Yes [id number] 81mg Take 1 [facility] chewable 0-01 [id number] tablet by i ty of tablet 00:00: mouth [place] 00 daily. [facility] aspirin 81 2020- Yes [id number] 81mg Take 1 [facility] mg chewable 0-01 [id number] tablet by i ty of tablet 00:00: mouth [place] 00 daily. [facility] aspirin 81 2020- Yes [id number] 81mg Take 1 [facility] chewable 0-01 [id number] tablet by i ty of tablet 00:00: mouth [place] 00 daily. [facility] aspirin 81 2020- Yes [id number] 81mg Take 1 [facility] mg chewable 0-01 [id number] tablet by i ty of tablet 00:00: mouth [place] 00 daily. [facility] aspirin 81 2020- Yes [id number] 81mg Take 1 [facility] chewable 0-01 [id number] tablet by i ty of tablet 00:00: mouth [place] 00 daily. [facility] aspirin 81 2020- Yes [id number] 81mg Take 1 [facility] mg chewable 0-01 [id number] tablet by i ty of tablet 00:00: mouth [place] 00 daily. [facility] aspirin 81 2020- Yes [id number] 81mg Take 1 [facility] mg chewable 0-01 [id number] tablet by i ty of tablet 00:00: mouth [place] 00 daily. [facility] aspirin 81 2020- Yes [id number] 81mg Take 1 [facility] mg chewable 0-01 [id number] tablet by i ty of tablet 00:00: mouth [place] 00 daily. [facility] aspirin 81 2020- Yes [id number] 81mg Take 1 [facility] mg chewable 0-01 [id number] tablet by i ty of tablet 00:00: mouth [place] 00 daily. [facility] aspirin 81 2020- Yes [id number] 81mg Take 1 [facility] mg chewable 0-01 [id number] tablet by i ty of tablet 00:00: mouth [place] 00 daily. [facility] aspirin 81 2020- Yes [id number] 81mg Take 1 [facility] mg chewable 0-01 [id number] tablet by i ty of tablet 00:00: mouth [place] 00 daily. [facility] aspirin 81 2020- Yes [id number] 81mg Take 1 [facility] mg chewable 0-01 [id number] tablet by i ty of tablet 00:00: mouth [place] 00 daily. [facility] aspirin 81 2020- Yes [id number] 81mg Take 1 [facility] mg chewable 0-01 [id number] tablet by i ty of tablet 00:00: mouth [place] 00 daily. [facility] aspirin 81 2020- Yes [id number] 81mg Take 1 [facility] mg chewable 0-01 [id number] tablet by i ty of tablet 00:00: mouth [place] 00 daily. [facility] aspirin 81 2020- Yes [id number] 81mg Take 1 [facility] mg chewable 0-01 [id number] tablet by i ty of tablet 00:00: mouth [place] 00 daily. [facility] aspirin 81 2020- Yes [id number] 81mg Take 1 [facility] mg chewable 0-01 [id number] tablet by i ty of tablet 00:00: mouth [place] 00 daily. [facility] aspirin 81 2020- Yes [id number] 81mg Take 1 [facility] mg chewable 0-01 [id number] tablet by i ty of tablet 00:00: mouth [place] 00 daily. [facility] aspirin 81 2020- Yes [id number] 81mg Take 1 [facility] mg chewable 0-01 [id number] tablet by i ty of tablet 00:00: mouth [place] 00 daily. [facility] aspirin 81 2020- Yes [id number] 81mg Take 1 [facility] mg chewable 0-01 [id number] tablet by i ty of tablet 00:00: mouth [place] 00 daily. [facility] aspirin 81 2019- Yes [id number] 81mg Take 1 [facility] mg chewable 0-01 [id number] tablet by i ty of tablet 00:00: mouth [place] 00 daily. [facility] aspirin 81 2020- Yes [id number] 81mg Take 1 [facility] mg chewable 0-01 [id number] tablet by i ty of tablet 00:00: mouth [place] 00 daily. [facility] aspirin 81 2019- Yes [id number] 81mg Take 1 [facility] mg chewable 0-01 [id number] tablet by i ty of tablet 00:00: mouth [place] 00 daily. [facility] aspirin 81 2020- Yes [id number] 81mg Take 1 [facility] mg chewable 0-01 [id number] tablet by i ty of tablet 00:00: mouth [place] 00 daily. [facility] aspirin 81 2020- Yes [id number] 81mg Take 1 [facility] mg chewable 0-01 [id number] tablet by i ty of tablet 00:00: mouth [place] 00 daily. [facility] aspirin 81 2020- Yes [id number] 81mg Take 1 [facility] mg chewable 0-01 [id number] tablet by i ty of tablet 00:00: mouth [place] 00 daily. [facility] aspirin 81 2020- Yes [id number] 81mg Take 1 [facility] mg chewable 0-01 [id number] tablet by i ty of tablet 00:00: mouth [place] 00 daily. [facility] aspirin 81 2020- Yes [id number] 81mg Take 1 [facility] mg chewable 0-01 [id number] tablet by i ty of tablet 00:00: mouth [place] 00 daily. [facility] aspirin 81 2020- Yes [id number] 81mg Take 1 [facility] mg chewable 0-01 [id number] tablet by i ty of tablet 00:00: mouth [place] 00 daily. [facility] aspirin 81 2020- Yes [id number] 81mg Take 1 [facility] mg chewable 0-01 [id number] tablet by i ty of tablet 00:00: mouth [place] 00 daily. [facility] aspirin 81 2020- Yes [id number] 81mg Take 1 [facility] mg chewable 0-01 [id number] tablet by i ty of tablet 00:00: mouth [place] 00 daily. [facility] aspirin 81 2020- Yes [id number] 81mg Take 1 [facility] mg chewable 0-01 [id number] tablet by i ty of tablet 00:00: mouth [place] 00 daily. [facility] aspirin 81 2020- Yes [id number] 81mg Take 1 [facility] mg chewable 0-01 [id number] tablet by i ty of tablet 00:00: mouth [place] 00 daily. [facility] aspirin 81 2020- Yes [id number] 81mg Take 1 [facility] mg chewable 0-01 [id number] tablet by i ty of tablet 00:00: mouth [place] 00 daily. [facility] aspirin 81 2020- Yes [id number] 81mg Take 1 [facility] mg chewable 0-01 [id number] tablet by i ty of tablet 00:00: mouth [place] 00 daily. [facility] aspirin 81 2020- Yes [id number] 81mg Take 1 [facility] mg chewable 0-01 [id number] tablet by i ty of tablet 00:00: mouth [place] 00 daily. [facility] aspirin 81 2020- Yes [id number] 81mg Take 1 [facility] mg chewable 0-01 [id number] tablet by i ty of tablet 00:00: mouth [place] 00 daily. [facility] aspirin 81 2020- Yes [id number] 81mg Take 1 [facility] mg chewable 0-01 [id number] tablet by i ty of tablet 00:00: mouth [place] 00 daily. [facility] aspirin 81 2020- Yes [id number] 81mg Take 1 [facility] mg chewable 0-01 [id number] tablet by i ty of tablet 00:00: mouth [place] 00 daily. [facility] aspirin 81 2020- Yes [id number] 81mg Take 1 [facility] mg chewable 0-01 [id number] tablet by i ty of tablet 00:00: mouth [place] 00 daily. [facility] aspirin 81 2020- Yes [id number] 81mg Take 1 [facility] mg chewable 0-01 [id number] tablet by i ty of tablet 00:00: mouth [place] 00 daily. [facility] aspirin 81 2019-02 Yes [id number] 81mg Take 1 [facility] mg chewable 0-01 [id number] tablet by i ty of tablet 00:00: mouth [place] 00 daily. [facility] aspirin 81 2019- Yes [id number] 81mg Take 1 [facility] mg chewable 0-01 [id number] tablet by i ty of tablet 00:00: mouth [place] 00 daily. [facility] pantoprazol 2019-02- No [id number] 20mg Take 1 [facility] e 20 mg [...] tablet 00 Medic[facility] atorvastati 2020-0 Yes [facility] ([facility] 6-13 [facility] 40 MG 00:00: of tablet 00 Medicin e atorvastati 2020-0 Yes [facility] ([facility]) 6-13 [facility] 40 MG 00:00: of tablet 00 Medicin e atorvastati 2020-0 Yes [facility] n (LIPITOR[facility] 6-13 [facility] 40 MG 00:00: of tablet 00 Medicin e atorvastati 2020-0 Yes [facility] n (LIPITOR) 6-13 [facility] 40 MG 00:00: of tablet 00 Medicin e atorvastati 2020-0 2022- No [place] [facility] (LIP[facility]) 6-13 02-10 [facility] 40 MG 00:00: 00:00 of tablet 00 :00 Medicin e amlodipine 2020-0 Yes [facility] (NORVASC) 5 6-02 [facility] MG tablet 00:00: of 00 Medicin e amlodipine 2020-0 Yes [facility] (NORVASC) 5 6-02 [facility] MG tablet 00:00: of 00 Medicin e amlodipine 2020-0 Yes [facility] (NORVASC) 5 6-02 [facility] MG tablet 00:00: of 00 Medicin e amlodipine 2020-0 Yes [facility] ([facility]VASC) 5 6-02 [facility] MG tablet 00:00: of 00 Medicin e amlodipine 2020-0 Yes [facility] MG tablet 00:00: of 00 Medicin e amlodipine 2020-0 2021- No [facility] (NORVAS) 5 6-02 09-19 College MG tablet 00:00: 00:00 of 00 :00 Medicin e losartan 2020-0 Yes [facility] (COZAAR) 5-30 [facility] 100 MG 00:00: of tablet 00 Medicin e losartan 2020-0 Yes [facility] (COZAAR) 5-30 [facility] 100 MG 00:00: of [...] 25 mg every day losartan 2020-0 Yes [facility] (COZAAR) 5-30 [facility] 100 MG 00:00: of tablet 00 Medicin e losartan 2020-0 Yes [facility] (COZAAR) 5-30 [facility] 100 MG 00:00: of tablet 00 Medicin e losartan 2020-0 Yes [facility] (COZAAR) 5-30 [facility] 100 MG 00:00: of tablet 00 Medicin e losartan 2020-0 2022- No 50mg 50 mg. [facility] [place] [facility] (COZAAR) 530 - takes 50 Colleg e 100 MG 00:00: [...] for premedicat ion hydrALAZINE 2020-0 Yes 50mg Q.[id number] Take [address] [facility] (APRESOLINE 2-17 [id number] [facility] ) 50 MG 00:00: 3D (three) Medical tablet 00 times Center daily . hydroCHLORO 2020-0 Yes 25mg QD Take [address] [facility] thiazide 2-17 [facility] (HYDRODIURI 00:00: daily. [facility]) 25 MG 00 Center tablet hydrALAZINE 2020-0 Yes 50mg Q.[id number] Take [address] [facility] (APRESOLINE 2-17 [id number] [facility] ) 50 MG 00:00: 3D (three) Medical tablet 00 times Center daily . hydroCHLORO 2020-0 Yes 25mg QD Take [address] [facility] thiazide 2-17 [facility] (HYDRODIURI 00:00: daily. [facility] 25 MG 00 Center tablet hydrALAZINE 2020-0 Yes 50mg Q.[id number] Take [address] [facility] (APRESOLINE 2-17 [id number] [facility] ) 50 MG 00:00: 3D (three) Medical tablet 00 times Center daily . hydroCHLORO 2020-0 Yes 25mg QD Take [address] [facility] thiazide 2-17 by [facility] (HYDRODIURI 00:00: daily. [facility]) 25 MG 00 Center tablet hydrALAZINE 2020-0 Yes 50mg Q.[id number] Take [address] [facility] (APRESOLINE 2-17 [id number] by [facility] ) 50 MG 00:00: 3D (three) Medical tablet 00 times Center daily . hydroCHLORO 2020-0 Yes 25mg QD Take [address] [facility] thiazide 2-17 by [facility] (HYDRODIURI 00:00: daily. [facility] 25 MG 00 Center tablet hydrALAZINE 2020-0 Yes 50mg Q.[id number] Take [address] [facility] (APRESOLINE 2-17 [id number] by [facility] ) 50 MG 00:00: 3D (three) Medical tablet 00 times Center daily . hydroCHLORO 2020-0 Yes 25mg QD Take [address] [facility] thiazide 2-17 by [facility] (HYDRODIURI 00:00: daily. [facility]) 25 MG 00 Center tablet hydrALAZINE 2020-0 Yes 50mg Q.[id number] Take [address] [facility] (APRESOLINE 2-17 [id number] by [facility] ) 50 MG 00:00: 3D (three) Medical tablet 00 times Center daily . hydroCHLORO 2020-0 Yes 25mg QD Take [address] [facility] thiazide 2-17 by [facility] (HYDRODIURI 00:00: daily. [facility]) 25 MG 00 Center tablet hydrALAZINE 2020-0 Yes 50mg Q.[id number] Take [address] [facility] (APRESOLINE 2-17 [id number] by [facility] ) 50 MG 00:00: 3D (three) Medical tablet 00 times Center daily . hydroCHLORO 2020-0 Yes 25mg QD Take [address] [facility] thiazide 2-17 by [facility] (HYDRODIURI 00:00: daily. [facility]) 25 MG 00 Center tablet hydrALAZINE 2020-0 Yes 50mg Q.[id number] Take [address] [facility] (APRESOLINE 2-17 [id number] by mouth [facility] ) 50 MG 00:00: 3D (three) Medical tablet 00 times Center daily . hydroCHLORO 2020-0 Yes 25mg QD Take [address] [facility] thiazide 2-17 by mouth [facility] (HYDRODIURI 00:00: daily. [facility]) 25 MG 00 Center tablet hydrALAZINE 2020-0 Yes 50mg Q.[id number] Take [address] [facility] (APRESOLINE 2-17 [id number] by mouth [facility] ) 50 MG 00:00: 3D (three) Medical tablet 00 times Center daily . hydroCHLORO 2020-0 Yes 25mg QD Take [address] [facility] thiazide 2-17 by mouth [facility] (HYDRODIURI 00:00: daily. [facility]) 25 MG 00 Center tablet hydrALAZINE 2020-0 Yes 50mg Q.[id number] Take [address] [facility] (APRESOLINE 2-17 [id number] [facility] ) 50 MG [...] by mouth [facility] tablet 00:00: daily. [address] aspirin 81 2019-0 Yes 81mg QD Take [address] [facility] chewable 6-21 by mouth [facility] tablet 00:00: daily. [address] aspirin 81 2019-0 Yes 81mg QD Take [address] [facility] chewable 6-21 by mouth [facility] tablet 00:00: daily. [address] aspirin 81 2019-0 Yes 81mg QD Take [address] MG chewable 6-21 by mouth [facility] tablet 00:00: daily. [address] aspirin 81 2019-0 Yes 81mg QD Take [address] MG chewable 6-21 by mouth [facility] tablet 00:00: daily. [address] aspirin 81 2019-0 Yes 81mg QD Take [address] MG chewable 6-21 by mouth [facility] tablet 00:00: daily. [address] aspirin 81 2019-0 Yes 81mg QD Take [address] MG chewable 6-21 by mouth [facility] tablet 00:00: daily. [address] aspirin 81 2019-0 Yes 81mg QD Take [address] MG chewable 6-21 by mouth [facility] tablet 00:00: daily. [address] aspirin 81 2019-0 Yes 81mg QD Take [address] MG chewable 6-21 by mouth [facility] tablet 00:00: daily. [address] aspirin 81 2019-0 Yes 81mg QD Take [address] MG chewable 6-21 by mouth [facility] tablet 00:00: daily. [address] atorvastati 2018-1 Yes 40mg QD Take [address] [facility] n (LIPITOR) 1-30 by mouth [facility] 40 MG 00:00: daily. Medical tablet 00 [place] amLODIPine 2017-02 Yes 2.5mg QD Take 2.[address] (NORVASC) 5 1-30 mg by [facility] tablet 00:00: mouth [facility] 00 daily . [place] atorvastati 2017-02 Yes 40mg QD Take [address] [facility] n (LIPITOR) 1-30 by mouth [facility] 40 MG 00:00: daily. Medical tablet 00 [place] amLODIPine 2017-02 Yes 2.5mg QD Take 2.[address] (NORVASC) 5 1-30 mg by [facility] tablet 00:00: mouth [facility] 00 daily . [place] atorvastati 2017-02 Yes 40mg QD Take [address] [facility] n (LIPITOR) 1-30 by mouth [facility] 40 MG 00:00: daily. Medical tablet 00 [place] amLODIPine 2017-02 Yes 2.5mg QD Take 2.[address] (NORVASC) 5 1-30 mg by [facility] tablet 00:00: mouth [facility] 00 daily . [place] atorvastati 2017-02 Yes 40mg QD Take [address] [facility] n (LIPITOR) 1-30 by mouth [facility] 40 MG 00:00: daily. Medical tablet 00 [place] amLODIPine 2017-02 Yes 2.5mg QD Take 2.[address] (NORVASC) 5 1-30 mg by [facility] tablet 00:00: mouth [facility] 00 daily . [place] atorvastati 2017-02 Yes 40mg QD Take [address] [facility] n (LIPITOR) 1-30 by mouth [facility] 40 MG 00:00: daily. Medical tablet 00 [place] amLODIPine 2017-02 Yes 2.5mg QD Take 2.[address] (NORVASC) 5 1-30 mg by [facility] tablet 00:00: mouth [facility] 00 daily . [place] atorvastati 2017-02 Yes 40mg QD Take [address] [facility] n (LIPITOR) 1-30 by mouth [facility] 40 MG 00:00: daily. Medical tablet 00 [place] amLODIPine 2017-02 Yes 2.5mg QD Take 2.[address] (NORVASC) 5 1-30 mg by [facility] tablet 00:00: mouth [facility] 00 daily . [place] atorvastati 2017-02 Yes 40mg QD Take [address] [facility] n (LIPITOR) 1-30 by mouth [facility] 40 MG 00:00: daily. Medical tablet 00 [place] amLODIPine 2017-02 Yes 2.5mg QD Take 2.[address] (NORVASC) 5 1-30 mg by [facility] tablet 00:00: mouth Medical 00 daily . [place] atorvastati 2017-02 Yes 40mg QD Take [address] [facility] n (LIPITOR) 1-30 by mouth [facility] 40 MG 00:00: daily. Medical tablet 00 [place] amLODIPine 2017-02 Yes 2.5mg QD Take 2.[address] (NORVASC) 5 1-30 mg by [facility] tablet 00:00: mouth Medical 00 daily . [place] atorvastati 2017-02 Yes 40mg QD Take [address] [facility] n (LIPITOR) 1-30 by mouth [facility] 40 MG 00:00: daily. Medical tablet 00 [place] amLODIPine 2017-02 Yes 2.5mg QD Take 2.[address] (NORVASC) 5 1-30 mg by [facility] tablet 00:00: mouth Medical 00 daily . [place] atorvastati 2017-02 Yes 40mg QD Take [address] [facility] n (LIPITOR) 1-30 by mouth [facility] 40 MG 00:00: daily. Medical tablet 00 [place] amLODIPine 2017-02 Yes 2.5mg QD Take 2.[address] (NORVASC) 5 1-30 mg by [facility] tablet 00:00: mouth Medical 00 daily . Center Immunizations Ordered Immunization Filled Immunization Date Status Commen ts Source Name Name Pneumococcal 2022-05-17 Completed [facility] Conjugate, PCV20 00:00:00 [facility] dical (Prevnar 20) Branch Pneumococcal 20 2022-05-17 Completed [facility] of Conjugate, PCV20 00:00:00 [facility] dical (Prevnar 20) Branch Pneumococcal 20 2022-05-17 Completed [facility] of Conjugate, PCV20 00:00:00 [facility] dical (Prevnar 20) Branch Pneumococcal 20 2022-05-17 Completed [facility] of Conjugate, PCV20 00:00:00 [facility] dical (Prevnar 20) Branch Pneumococcal 20 2022-05-17 [...] [facility] of Conjugate, PCV20 00:00:[facility] [place] [facility] (Prevnar 20) Branch Pneumococcal 20 2022-05-17 Completed [facility] of Conjugate, PCV20 00:00:00 [place] [facility] (Prevnar 20) Branch Pneumococcal 20 2022-05-17 Completed [facility] of Conjugate, PCV20 00:00:00 [place] [facility] (Prevnar 20) Branch Pneumococcal 20 2022-05-17 Completed [facility] Conjugate, PCV20 00:00:00 [place] [facility] (Prevnar 20) Branch Pneumococcal 20 2022-05-17 Completed [facility] of Conjugate, PCV20 00:00:00 [place] [facility] (Prevnar 20) Branch Pneumococcal 20 2022-05-17 Completed [facility] of Conjugate, PCV20 00:00:00 [place] [facility] (Prevnar 20) Branch Pneumococcal 20 2022-05-17 Completed [facility] of Conjugate, PCV20 00:00:00 [place] [facility] (Prevnar 20) Branch Pneumococcal 20 2022-05-17 Completed [facility] of Conjugate, PCV20 00:00:00 [place] [facility] (Prevnar 20) Branch Pneumococcal 20 2022-05-17 Completed [facility] of Conjugate, PCV20 00:00:00 [place] [facility] (Prevnar 20) Branch Pneumococcal 20 2022-05-17 Completed [facility] of Conjugate, PCV20 00:00:00 [place] [facility] (Prevnar 20) Branch Pneumococcal 20 2022-05-17 [...] [facility] y of Conjugate, PCV20 00:00:00 [place] [facility] (Prevnar 20) Branch Pneumococcal 20 2022-05-17 Completed [facility] of Conjugate, PCV20 00:00:00 [place] [facility] (Prevnar 20) Branch Pneumococcal 20 2022-05-17 Completed [facility] of Conjugate, PCV20 00:00:00 [place] [facility] (Prevnar 20) Branch Pneumococcal 20 2022-05-17 Completed [facility] of Conjugate, PCV20 00:00:00 [place] [facility] (Prevnar 20) Branch Pneumococcal 20 2022-05-17 Completed [facility] of Conjugate, PCV20 00:00:00 [place] [facility] (Prevnar 20) Branch Pneumococcal 20 2022-05-17 Completed [facility] of Conjugate, PCV20 00:00:00 [place] [facility] (Prevnar 20) Branch Pneumococcal 20 2022-05-17 Completed [facility] of Conjugate, PCV20 00:00:00 [facility] dical (Prevnar 20) Branch Pneumococcal 20 2022-05-17 Completed [facility] y of Conjugate, PCV20 00:00:00 [facility] dical (Prevnar 20) Branch Pneumococcal 20 2022-05-17 Completed [facility] of Conjugate, PCV20 00:00:00 [place] [facility] (Prevnar 20) Branch Pneumococcal 20 2022-05-17 Completed [facility] of Conjugate, PCV20 00:00:00 [facility] dical (Prevnar 20) Branch Pneumococcal 20 2022-05-17 Completed [facility] of Conjugate, PCV20 00:00:00 [facility] dical (Prevnar 20) Branch Influenza Virus 2021-12-24 [...] 2019-11-08 Completed [facility] 00:00:00 [facility] Branch Influenza High Dose 2019-11-08 Completed [facility] 00:00:00 [place] [facility] Influenza High Dose 2019-11-08 Completed [facility]00 [facility] Influenza High Dose 2019-11-08 Completed [facility] 00:00[facility]00 [facility] Influenza High Dose 2019-11-08 Completed [facility] 00[facility]00:00 [facility] Influenza High Dose 2019-11-08 Completed [facility] 00:00:00 [facility] Influenza High Dose 2019-11-08 Completed [facility] 00:00:00 [facility] Influenza High Dose 2019-11-08 Completed [facility] 00:00:00 [facility] Influenza High Dose 2019-11-08 Completed [facility] 00:00:00 [facility] Influenza High Dose 2019-11-08 Completed [facility] 00:00:00 [facility] Influenza High Dose 2019-11-08 Completed [facility] 00:00:00 [facility] Influenza High Dose 2019-11-08 Completed [facility] 00[facility]00:00 [facility] Influenza High Dose 2019-11-08 Completed [facility] 00:00:00 [facility] Influenza High Dose 2019-11-08 Completed [facility] 00:00:00 [facility] Influenza High Dose 2019-11-08 Completed [facility] 00:00:00 [facility] Influenza High Dose 2019-11-08 Completed [facility] 00:00:00 [facility] Influenza High Dose 2019-11-08 Completed [facility] 00:00:00 [facility] Influenza High Dose 2019-11-08 Completed [facility] 00[facility]00:00 [facility] Influenza High Dose 2019-11-08 Completed [facility] 00:00:00 [facility] Influenza High Dose 2019-11-08 Completed [facility] 00:00:00 [facility] Influenza High Dose 2019-11-08 Completed [facility] 00:00:00 [facility] Influenza High Dose 2019-11-08 Completed [facility] 00:00:00 [facility] Influenza High Dose 2019-11-08 Completed [facility] 00:00:00 [facility] Influenza High Dose 2019-11-08 Completed [facility] 00:00:00 [facility] Influenza High Dose 2019-11-08 Completed [facility] 00:00:00 [facility] Influenza High Dose 2019-11-08 Completed [facility] 00:00:00 [facility] Influenza High Dose 2019-11-08 Completed [facility] 00[facility]00:00 [facility] Influenza High Dose 2019-11-08 Completed [facility] 00:00:00 [facility] Influenza High Dose 2019-11-08 Completed [facility] 00:00:00 [facility] Influenza High Dose 2019-11-08 Completed [facility] 00:00:00 [facility] Influenza High Dose 2019-11-08 Completed [facility] 00:00:00 [facility] Influenza High Dose 2019-11-08 Completed [facility] 00:00:00 [facility] Influenza High Dose 2019-11-08 Completed [facility] 00:00:00 [facility] Influenza High Dose 2019-11-08 Completed [facility] 00:00:00 [facility] Influenza High Dose 2019-11-08 Completed [facility] 00:00:00 [facility] Influenza High Dose 2019-11-08 Completed [facility] 00:00:00 [facility] Influenza High Dose 2019-11-08 Completed [facility] 00:00:00 [facility] Influenza High Dose 2019-11-08 Completed [facility] 00:00:00 [facility] Influenza High Dose 2019-11-08 Completed [facility] 00:00:00 [facility] Influenza High Dose 2019-11-08 Completed [facility] 00:00:00 [facility] Influenza High Dose 2019-11-08 Completed [facility] 00:00:00 [facility] Influenza High Dose 2019-11-08 Completed [facility] 00:00:00 [facility] Influenza High Dose 2019-11-08 Completed [facility] 00:00:00 [facility] Influenza High Dose 2019-11-08 Completed [facility] 00:00:00 [facility] Influenza High Dose 2019-11-08 Completed [facility] 00:00:00 [facility] Influenza High Dose 2019-11-08 Completed [facility] 00:00:00 [facility] Influenza High Dose 2019-11-08 Completed [facility] 00:00:00 [facility] Influenza High Dose 2019-11-08 Completed [facility] 00:00:00 [facility] Influenza High Dose 2019-11-08 Completed [facility] 00:00:00 [facility] Influenza High Dose 2019-11-08 Completed [facility] 00:00:00 [facility] Influenza High Dose 2019-11-08 Completed [facility] 00:00:00 [facility] Influenza High Dose 2019-11-08 Completed [facility] 00:00:00 [facility] Influenza High Dose 2019-11-08 Completed [facility] 00:00:00 [facility] Influenza High Dose 2019-11-08 Completed [facility] 00:00:00 [facility] Influenza High Dose 2019-11-08 Completed [facility] 00:00:00 [facility] Influenza High Dose 2019-11-08 Completed [facility] 00:00:00 [facility] Influenza High Dose 2019-11-08 Completed [facility] 00:00:00 [facility] Influenza High Dose 2019-11-08 Completed [facility] 00:00:00 [facility] Influenza High Dose 2019-11-08 Completed [facility] 00:00:00 [facility] Influenza High Dose 2019-11-08 Completed [facility] 00:00:00 [facility] Influenza High Dose 2019-11-08 Completed [facility] 00:00:00 [facility] Influenza High Dose 2019-11-08 Completed [facility] 00:00:00 [facility] Influenza High Dose 2019-11-08 Completed [facility] 00:00:00 [facility] Influenza High Dose 2019-11-08 Completed [facility] 00:00:00 [facility] Influenza High Dose 2019-11-08 Completed [facility] 00:00:00 [facility] Influenza High Dose 2019-11-08 Completed [facility] 00[facility]00:00 [facility] Influenza High Dose 2019-11-08 Completed [facility] 00:00:00 [facility] Influenza High Dose 2019-11-08 Completed [facility] 00:00:00 [facility] Influenza High Dose 2019-11-08 Completed [facility] 00:00:00 [facility] Influenza High Dose 2019-11-08 Completed [facility] 00:00:00 [facility] Influenza High Dose 2019-11-08 Completed [facility] 00:00:00 [facility] Influenza High Dose 2019-11-08 Completed [facility] 00[facility]00:00 [facility] Influenza High Dose 2019-11-08 Completed [facility] 00:00:00 [facility] Influenza High Dose 2019-11-08 Completed [facility] 00:00:00 [facility] Influenza High Dose 2019-11-08 Completed [facility] 00:00:00 [facility] Influenza High Dose 2019-11-08 Completed [facility] 00:00:00 [facility] Influenza High Dose 2019-11-08 Completed [facility] 00:00:00 [facility] Influenza High Dose 2019-11-08 Completed [facility] 00:00:00 [facility] Influenza High Dose 2019-11-08 Completed [facility] 00:00:00 [facility] Influenza High Dose 2019-11-08 Completed [facility] 00:00:00 [facility] Influenza High Dose 2019-11-08 Completed [facility] 00:00:00 [facility] Influenza High Dose 2019-11-08 Completed [facility] 00:00:00 [facility] Influenza High Dose 2019-11-08 Completed [facility] 00:00:00 [facility] Influenza High Dose 2019-11-08 Completed [facility] 00:00:00 [facility] Influenza High Dose 2019-11-08 Completed [facility] 00:00:00 [facility] Influenza High Dose 2019-11-08 Completed [facility] 00:00:00 [facility] Influenza High Dose 2019-11-08 Completed [facility] 00:00:00 [facility] Influenza High Dose 2019-11-08 Completed [facility] 00:00:00 [facility] Influenza High Dose 2019-11-08 Completed [facility] 00:00:00 [facility] Influenza High Dose 2019-11-08 Completed [facility] 00:00:00 [facility] Influenza High Dose 2019-11-08 Completed [facility] 00:00:00 [facility] Influenza High Dose 2019-11-08 Completed [facility] 00:00:00 [facility] Influenza High Dose 2019-11-08 Completed [facility] 00:00:00 [facility] Influenza High Dose 2019-11-08 Completed [facility] 00:00:00 [facility] Influenza High Dose 2019-11-08 Completed [facility] 00:00:00 [facility] Influenza High Dose 2019-11-08 Completed [facility] 00:00:00 [facility] Influenza High Dose 2019-11-08 Completed [facility] 00:00:00 [facility] Influenza High Dose 2019-11-08 Completed [facility] 00:00:00 [facility] Influenza High Dose 2019-11-08 Completed [facility] 00:00:00 [facility] Influenza High Dose 2019-11-08 Completed [facility] 00:00:00 [facility] Influenza High Dose 2019-11-08 Completed [facility] 00:00:00 [facility] Influenza High Dose 2019-11-08 Completed [facility] 00:00:00 [facility] Influenza High Dose 2019-11-08 Completed [facility] 00:00:00 [facility] Influenza High Dose 2019-11-08 Completed [facility] 00:00:00 [facility] Influenza High Dose 2019-11-08 Completed [facility] 00:00:00 [facility] Influenza High Dose 2019-11-08 Completed [facility] 00:00:00 [facility] Influenza High Dose 2019-11-08 Completed [facility] 00:00:00 [facility] Influenza High Dose 2019-11-08 Completed [facility] 00:00:00 [facility] Influenza High Dose 2019-11-08 Completed [facility] 00:00:00 [facility] Influenza High Dose 2019-11-08 Completed [facility] 00:00:00 [facility] Influenza High Dose 2019-11-08 Completed [facility] 00:00:00 [facility] Influenza High Dose 2019-11-08 Completed [facility] 00:00:00 [facility] Influenza High Dose 2019-11-08 Completed [facility] 00:00:00 [facility] Influenza High Dose 2019-11-08 Completed [facility] 00:00:00 [facility] Influenza High Dose 2019-11-08 Completed [facility] 00:00:00 [facility] Influenza High Dose 2019-11-08 Completed [facility] 00:00:00 [facility] Influenza High Dose 2019-11-08 Completed [facility] 00:00:00 [facility] Influenza High Dose 2019-11-08 Completed [facility] 00:00:00 [facility] Influenza High Dose 2019-11-08 Completed [facility] 00:00:00 [facility] Influenza High Dose 2019-11-08 Completed [facility] 00:00:00 [facility] Influenza High Dose 2019-11-08 Completed [facility] 00:00:00 [facility] Influenza High Dose 2019-11-08 Completed [facility] 00:00:00 [facility] Influenza High Dose 2019-11-08 Completed [facility] 00:00:00 [facility] Influenza High Dose 2019-11-08 Completed [facility] 00:00:00 [facility] Influenza High Dose 2019-11-08 Completed [facility] 00:00:00 [facility] Influenza High Dose 2019-11-08 Completed [facility] 00:00:00 [facility] Influenza High Dose 2019-11-08 Completed [facility] 00:00:00 [facility] Influenza High Dose 2019-11-08 Completed [facility] 00:00:00 [facility] Influenza High Dose 2019-11-08 Completed [facility] 00:00:00 [facility] Influenza High Dose 2019-11-08 Completed [facility] 00:00:00 [facility] Influenza High Dose 2019-11-08 Completed [facility] 00:00:00 [facility] Influenza High Dose 2019-11-08 Completed [facility] 00:00:00 [facility] Influenza High Dose 2019-11-08 Completed [facility] 00:00:00 [facility] Influenza High Dose 2019-11-08 Completed [facility] 00:00:00 [facility] Influenza High Dose 2019-11-08 Completed [facility] 00:00:00 [facility] Influenza High Dose 2019-11-08 Completed [facility] 00:00:00 [facility] Influenza High Dose 2019-11-08 Completed [facility] 00:00:00 [facility] Influenza High Dose 2019-11-08 Completed [facility] 00:00:00 [facility] Influenza High Dose 2019-11-08 Completed [facility] 00:00:00 [facility] Influenza High Dose 2019-11-08 Completed [facility] 00:00:00 [facility] Influenza High Dose 2019-11-08 Completed [facility] 00:00:00 [facility] Influenza High Dose 2019-11-08 Completed [facility] 00:00:00 [facility] Influenza High Dose 2019-11-08 Completed [facility] 00:00:00 [facility] Influenza High Dose 2019-11-08 Completed [facility] 00:00:00 [facility] Influenza High Dose 2019-11-08 Completed [facility] 00:00:00 [facility] Influenza High Dose 2019-11-08 Completed [facility] 00:00:00 [facility] Influenza High Dose 2019-11-08 Completed [facility] 00:00:00 [facility] Influenza High Dose 2019-11-08 Completed [facility] 00:00:00 [facility] Influenza High Dose 2019-11-08 Completed [facility] 00:00:00 [facility] Influenza High Dose 2019-11-08 Completed [facility] 00:00:00 [facility] Influenza High Dose 2019-11-08 Completed [facility] 00:00:00 [facility] Influenza High Dose 2019-11-08 Completed [facility] 00:00:00 [facility] Influenza High Dose 2019-11-08 Completed [facility] 00:00:00 [facility] Influenza High Dose 2019-11-08 Completed [facility] 00:00:00 [facility] Influenza High Dose 2019-11-08 Completed [facility] 00:00:00 [facility] Influenza High Dose 2019-11-08 Completed [facility] 00:00:00 [facility] Influenza High Dose 2019-11-08 Completed [facility] 00:00:00 [facility] Influenza High Dose 2019-11-08 Completed [facility] 00:00:00 [facility] Influenza High Dose 2019-11-08 Completed [facility] 00:00:00 [facility] Influenza High Dose 2019-11-08 Completed [facility] 00:00:00 [facility] Influenza High Dose 2019-11-08 Completed [facility] 00:00:00 [facility] Influenza High Dose 2019-11-08 Completed [facility] 00:00:00 [facility] Influenza High Dose 2019-11-08 Completed [facility] 00:00:00 [facility] Influenza High Dose 2019-11-08 Completed [facility] 00:00:00 [facility] Influenza High Dose 2019-11-08 Completed [facility] 00:00:00 [facility] Influenza High Dose 2019-11-08 Completed [facility] 00:00:00 [facility] Influenza High Dose 2019-11-08 Completed [facility] 00:00:00 [facility] Influenza High Dose 2019-11-08 Completed [facility] 00:00:00 [facility] Influenza Hd 2019-11-08 Completed [facility] 00[facility]:00 [facility] Influenza Hd 2019-11-08 Completed [facility] 00:00:00 [facility] Influenza Hd 2019-11-08 Completed [facility] Influenza High Dose 2019-02-13 Completed [facility] 00:00:00 [facility] Influenza High Dose 2019-02-13 Completed [facility] 00:00:00 [facility] Influenza High Dose 2019-02-13 Completed [facility] 00:00:00 [facility] Influenza High Dose 2019-02-13 Completed [facility] 00:00:00 [facility] Influenza High Dose 2019-02-13 Completed [facility] 00:00:00 [facility] Influenza High Dose 2019-02-13 Completed [facility] 00:00:00 [facility] Influenza High Dose 2019-02-13 Completed [facility] 00:00:00 [facility] Influenza High Dose 2019-02-13 Completed [facility] 00:00:00 [facility] Influenza High Dose 2019-02-13 Completed [facility] 00:00:00 [facility] Influenza High Dose 2019-02-13 Completed [facility] 00:00:00 [facility] Influenza High Dose 2019-02-13 Completed [facility] 00:00:00 [facility] Influenza High Dose 2019-02-13 Completed [facility] 00:00:00 [facility] Influenza High Dose 2019-02-13 Completed [facility] 00:00:00 [facility] Influenza High Dose 2019-02-13 Completed [facility] 00:00:00 [facility] Influenza High Dose 2019-02-13 Completed [facility] 00:00:00 [facility] Influenza High Dose 2019-02-13 Completed [facility] 00:00:00 [facility] Influenza High Dose 2019-02-13 Completed [facility] 00:00:00 [facility] Influenza High Dose 2019-02-13 Completed [facility] 00:00:00 [facility] Influenza High Dose 2019-02-13 Completed [facility] 00:00:00 [facility] Influenza High Dose 2019-02-13 Completed [facility] 00:00:00 [facility] Influenza High Dose 2019-02-13 Completed [facility] 00:00:00 [facility] Influenza High Dose 2019-02-13 Completed [facility] 00:00:00 [facility] Influenza High Dose 2019-02-13 Completed [facility] 00:00:00 [facility] Influenza High Dose 2019-02-13 Completed [facility] 00:00:00 [facility] Influenza High Dose 2019-02-13 Completed [facility] 00:00:00 [facility] Influenza High Dose 2019-02-13 Completed [facility] 00:00:00 [facility] Influenza High Dose 2019-02-13 Completed [facility] 00:00:00 [facility] Influenza High Dose 2019-02-13 Completed [facility] 00:00:00 [facility] Influenza High Dose 2019-02-13 Completed [facility] 00:00:00 [facility] Influenza High Dose 2019-02-13 Completed [facility] 00:00:00 [facility] Influenza High Dose 2019-02-13 Completed [facility] 00:00:00 [facility] Influenza High Dose 2019-02-13 Completed [facility] 00:00:00 [facility] Influenza High Dose 2019-02-13 Completed [facility] 00:00:00 [facility] Influenza High Dose 2019-02-13 Completed [facility] 00:00:00 [facility] Influenza High Dose 2019-02-13 Completed [facility] 00:00:00 [facility] Influenza High Dose 2019-02-13 Completed [facility] 00:00:00 [facility] Influenza High Dose 2019-02-13 Completed [facility] 00:00:00 [facility] Influenza High Dose 2019-02-13 Completed [facility] 00:00:00 [facility] Influenza High Dose 2019-02-13 Completed [facility] 00:00:00 [facility] Influenza High Dose 2019-02-13 Completed [facility] 00:00:00 [facility] Influenza High Dose 2019-02-13 Completed [facility] 00:00:00 [facility] Influenza High Dose 2019-02-13 Completed [facility] 00:00:00 [facility] Influenza High Dose 2019-02-13 Completed [facility] 00:00:00 [facility] Influenza High Dose 2019-02-13 Completed [facility] 00:00:00 [facility] Influenza High Dose 2019-02-13 Completed [facility] 00:00:00 [facility] Influenza High Dose 2019-02-13 Completed [facility] 00:00:00 [facility] Influenza High Dose 2019-02-13 Completed [facility] 00:00:00 [facility] Influenza High Dose 2019-02-13 Completed [facility] 00:00:00 [facility] Influenza High Dose 2019-02-13 Completed [facility] 00:00:00 [facility] Influenza High Dose 2019-02-13 Completed [facility] 00:00:00 [facility] Influenza High Dose 2019-02-13 Completed [facility] 00:00:00 [facility] Influenza High Dose 2019-02-13 Completed [facility] 00:00:00 [facility] Influenza High Dose 2019-02-13 Completed [facility] 00:00:00 [facility] Influenza High Dose 2019-02-13 Completed [facility] 00:00:00 [facility] Influenza High Dose 2019-02-13 Completed [facility] 00:00:00 [facility] Influenza High Dose 2019-02-13 Completed [facility] 00:00:00 [facility] Influenza High Dose 2019-02-13 Completed [facility] 00:00:00 [facility] Influenza High Dose 2019-02-13 Completed [facility] 00:00:00 [facility] Influenza High Dose 2019-02-13 Completed [facility] 00:00:00 [facility] Influenza High Dose 2019-02-13 Completed [facility] 00:00:00 [facility] Influenza High Dose 2019-02-13 Completed [facility] 00:00:00 [facility] Influenza High Dose 2019-02-13 Completed [facility] 00:00:00 [facility] Influenza High Dose 2019-02-13 Completed [facility] 00:00:00 [facility] Influenza High Dose 2019-02-13 Completed [facility] 00:00:00 [facility] Influenza High Dose 2019-02-13 Completed [facility] 00:00:00 [facility] Influenza High Dose 2019-02-13 Completed [facility] 00:00:00 [facility] Influenza High Dose 2019-02-13 Completed [facility] 00:00:00 [facility] Influenza High Dose 2019-02-13 Completed [facility] 00:00:00 [facility] Influenza High Dose 2019-02-13 Completed [facility] 00:00:00 [facility] Influenza High Dose 2019-02-13 Completed [facility] 00:00:00 [facility] Influenza High Dose 2019-02-13 Completed [facility] 00:00:00 [facility] Influenza High Dose 2019-02-13 Completed [facility] 00:00:00 [facility] Influenza High Dose 2019-02-13 Completed [facility] 00:00:00 [facility] Influenza High Dose 2019-02-13 Completed [facility] 00:00:00 [facility] Influenza High Dose 2019-02-13 Completed [facility] 00:00:00 [facility] Influenza High Dose 2019-02-13 Completed [facility] 00:00:00 [facility] Influenza High Dose 2019-02-13 Completed [facility] 00:00:00 [facility] Influenza High Dose 2019-02-13 Completed [facility] 00:00:00 [facility] Influenza High Dose 2019-02-13 Completed [facility] 00:00:00 [facility] Influenza High Dose 2019-02-13 Completed [facility] 00:00:00 [facility] Influenza High Dose 2019-02-13 Completed [facility] 00:00:00 [facility] Influenza High Dose 2019-02-13 Completed [facility] 00:00:00 [facility] Influenza High Dose 2019-02-13 Completed [facility] 00:00:00 [facility] Influenza High Dose 2019-02-13 Completed [facility] 00:00:00 [facility] Influenza High Dose 2019-02-13 Completed [facility] 00:00:00 [facility] [facility] Influenza High Dose 2019-02-13 Completed Unive rsity of 00:00:00 [facility] Influenza High Dose 2019-02-13 Completed Unive rsity of 00:00:00 [facility] Influenza High Dose 2019-02-13 Completed Unive rsity of 00:00:00 [facility] Influenza High Dose 2019-02-13 Completed Unive rsity of 00:00:00 [facility] Influenza High Dose 2019-02-13 Completed Unive rsity of 00:00:00 [facility] Influenza High Dose 2019-02-13 Completed Unive rsity of 00:00:00 [facility] Influenza High Dose 2019-02-13 Completed Unive rsity of 00:00:00 [facility] Influenza High Dose 2019-02-13 Completed Unive rsity of 00:00:00 [facility] Influenza High Dose 2019-02-13 Completed Unive rsity of 00:00:00 [facility] Influenza Hd 2019-02-13 Completed [facility] 00:00:00 of Medicine Influenza Hd 2019-02-13 Completed Art Colle ge 00:00:00 of Medicine Influenza Hd 2019-02-13 Completed Art Colle ge 00:00:00 of Medicine TDAP 2017-11-10 Completed University of 00:00:00 [facility] TDAP 2017-11-10 Completed University of 00:00:00 [facility] TDAP 2017-11-10 Completed University of 00:00:00 [facility] TDAP 2017-11-10 Completed University of 00:00:00 [facility] TDAP 2017-11-10 Completed University of 00:00:00 [place] [...] Completed University of 00:00:00 [facility] TD 2017-11-10 Completed University of 00:00:00 [facility] TDAP 2017-11-10 Completed University of 00:00:00 [facility] TDAP 2017-11-10 Completed University of 00:00:00 [facility] TDAP 2017-11-10 Completed University of 00:00:00 [facility] TDAP 2017-11-10 Completed University of 00:00:00 [facility] TDAP 2017-11-10 Completed University of 00:00:00 [facility] Tdap 2017-11-10 Completed [facility] 00:00:00 of Medicine Tdap 2017-11-10 Completed [facility] 00:00:00 of Medicine Tdap 2017-11-10 Completed [facility] 00:00:00 of Medicine Pneumococcal 2017-06-09 Completed [...] ical PPSV23 (PNEUMOVAX) Branch Pneumococcal 2017-06-09 Completed [facility] Polysaccharide 00:00:00 of Medicin e Pneumococcal 2017-06-09 Completed [facility] Polysaccharide 00:00:00 of Medicin e Pneumococcal 2017-06-09 Completed [facility] Polysaccharide 00:00:00 of Medicin e Influenza High Dose 2016-11-14 Completed Unive rsity of 00:00:00 [facility] Influenza High Dose 2016-11-14 Completed Unive rsity of 00:00:00 [facility] Influenza High Dose 2016-11-14 Completed Unive rsity of 00:00:00 [facility] Influenza High Dose 2016-11-14 Completed Unive rsity of 00:00:00 [facility] Influenza High Dose 2016-11-14 Completed Unive rsity of 00:00:00 [facility] Influenza High Dose 2016-11-14 Completed Unive rsity of 00:00:00 [facility] Influenza High Dose 2016-11-14 Completed Unive rsity of 00:00:00 [facility] Influenza High Dose 2016-11-14 Completed Unive rsity of 00:00:00 [facility] Influenza High Dose 2016-11-14 Completed Unive rsity of 00:00:00 [facility] Influenza High Dose 2016-11-14 Completed Unive rsity of 00:00:00 [facility] Influenza High Dose 2016-11-14 Completed Unive rsity of 00:00:00 [facility] Influenza High Dose 2016-11-14 Completed Unive rsity of 00:00:00 [facility] Influenza High Dose 2016-11-14 Completed Unive rsity of 00:00:00 [facility] Influenza High Dose 2016-11-14 Completed Unive rsity of 00:00:00 [facility] Influenza High Dose 2016-11-14 Completed Unive rsity of 00:00:00 [facility] Influenza High Dose 2016-11-14 Completed Unive rsity of 00:00:00 [facility] Influenza High Dose 2016-11-14 Completed Unive rsity of 00:00:00 [facility] Influenza High Dose 2016-11-14 Completed Unive rsity of 00:00:00 [facility] Influenza High Dose 2016-11-14 Completed Unive rsity of 00:00:00 [facility] Influenza High Dose 2016-11-14 Completed Unive rsity of 00:00:00 [facility] Influenza High Dose 2016-11-14 Completed Unive rsity of 00:00:00 [facility] Influenza High Dose 2016-11-14 Completed Unive rsity of 00:00:00 [facility] Influenza High Dose 2016-11-14 Completed Unive rsity of 00:00:00 [facility] Influenza High Dose 2016-11-14 Completed Unive rsity of 00:00:00 [facility] Influenza High Dose 2016-11-14 Completed Unive rsity of 00:00:00 [facility] Influenza High Dose 2016-11-14 Completed Unive rsity of 00:00:00 [facility] Influenza High Dose 2016-11-14 Completed Unive rsity of 00:00:00 [facility] Influenza High Dose 2016-11-14 Completed Unive rsity of 00:00:00 [facility] Influenza High Dose 2016-11-14 Completed Unive rsity of 00:00:00 [facility] Influenza High Dose 2016-11-14 Completed Unive rsity of 00:00:00 [facility] Influenza High Dose 2016-11-14 Completed Unive rsity of 00:00:00 [facility] Influenza High Dose 2016-11-14 Completed Unive rsity of 00:00:00 [facility] Influenza High Dose 2016-11-14 Completed Unive rsity of 00:00:00 [facility] Influenza High Dose 2016-11-14 Completed Unive rsity of 00:00:00 [facility] Influenza High Dose 2016-11-14 Completed Unive rsity of 00:00:00 [facility] Influenza High Dose 2016-11-14 Completed Unive rsity of 00:00:00 [facility] Influenza High Dose 2016-11-14 Completed Unive rsity of 00:00:00 [facility] Influenza High Dose 2016-11-14 Completed Unive rsity of 00:00:00 [facility] Influenza High Dose 2016-11-14 Completed Unive rsity of 00:00:00 [facility] Influenza High Dose 2016-11-14 Completed Unive rsity of 00:00:00 [facility] Influenza High Dose 2016-11-14 Completed Unive rsity of 00:00:00 [facility] Influenza High Dose 2016-11-14 Completed Unive rsity of 00:00:00 [facility] Influenza High Dose 2016-11-14 Completed Unive rsity of 00:00:00 [facility] Influenza High Dose 2016-11-14 Completed Unive rsity of 00:00:00 [facility] Influenza High Dose 2016-11-14 Completed Unive rsity of 00:00:00 [facility] Influenza High Dose 2016-11-14 Completed Unive rsity of 00:00:00 [facility] Influenza High Dose 2016-11-14 Completed Unive rsity of 00:00:00 [facility] Influenza High Dose 2016-11-14 Completed Unive rsity of 00:00:00 [facility] Influenza High Dose 2016-11-14 Completed Unive rsity of 00:00:00 [facility] Influenza High Dose 2016-11-14 Completed Unive rsity of 00:00:00 [facility] Influenza High Dose 2016-11-14 Completed Unive rsity of 00:00:00 [facility] Influenza High Dose 2016-11-14 Completed Unive rsity of 00:00:00 [facility] Influenza High Dose 2016-11-14 Completed Unive rsity of 00:00:00 [facility] Influenza High Dose 2016-11-14 Completed Unive rsity of 00:00:00 [facility] Influenza High Dose 2016-11-14 Completed Unive rsity of 00:00:00 [facility] Influenza High Dose 2016-11-14 Completed Unive rsity of 00:00:00 [facility] Influenza High Dose 2016-11-14 Completed Unive rsity of 00:00:00 [facility] Influenza High Dose 2016-11-14 Completed Unive rsity of 00:00:00 [facility] Influenza High Dose 2016-11-14 Completed Unive rsity of 00:00:00 [facility] Influenza High Dose 2016-11-14 Completed Unive rsity of 00:00:00 [facility] Influenza High Dose 2016-11-14 Completed Unive rsity of 00:00:00 [facility] Influenza High Dose 2016-11-14 Completed Unive rsity of 00:00:00 [facility] Influenza High Dose 2016-11-14 Completed Unive rsity of 00:00:00 [facility] Influenza High Dose 2016-11-14 Completed Unive rsity of 00:00:00 [facility] Influenza High Dose 2016-11-14 Completed Unive rsity of 00:00:00 [facility] Influenza High Dose 2016-11-14 Completed Unive rsity of 00:00:00 [facility] Influenza High Dose 2016-11-14 Completed Unive rsity of 00:00:00 [facility] Influenza High Dose 2016-11-14 Completed Unive rsity of 00:00:00 [facility] Influenza High Dose 2016-11-14 Completed Unive rsity of 00:00:00 [facility] Influenza High Dose 2016-11-14 Completed Unive rsity of 00:00:00 [facility] Influenza High Dose 2016-11-14 Completed Unive rsity of 00:00:00 [facility] Influenza High Dose 2016-11-14 Completed Unive rsity of 00:00:00 [facility] Influenza High Dose 2016-11-14 Completed Unive rsity of 00:00:00 [facility] Influenza High Dose 2016-11-14 Completed Unive rsity of 00:00:00 [facility] Influenza High Dose 2016-11-14 Completed Unive rsity of 00:00:00 [facility] Influenza High Dose 2016-11-14 Completed Unive rsity of 00:00:00 [facility] Influenza High Dose 2016-11-14 Completed Unive rsity of 00:00:00 [facility] Influenza High Dose 2016-11-14 Completed Unive rsity of 00:00:00 [facility] Influenza High Dose 2016-11-14 Completed Unive rsity of 00:00:00 [facility] Influenza High Dose 2016-11-14 Completed Unive rsity of 00:00:00 [facility] Influenza High Dose 2016-11-14 Completed Unive rsity of 00:00:00 [facility] Influenza High Dose 2016-11-14 Completed Unive rsity of 00:00:00 [facility] Influenza High Dose 2016-11-14 Completed Unive rsity of 00:00:00 [facility] Influenza High Dose 2016-11-14 Completed Unive rsity of 00:00:00 [facility] Influenza High Dose 2016-11-14 Completed Unive rsity of 00:00:00 [facility] Influenza High Dose 2016-11-14 Completed Unive rsity of 00:00:00 [facility] Influenza High Dose 2016-11-14 Completed Unive rsity of 00:00:00 [facility] Influenza High Dose 2016-11-14 Completed Unive rsity of 00:00:00 [facility] Influenza High Dose 2016-11-14 Completed Unive rsity of 00:00:00 [facility] Influenza High Dose 2016-11-14 Completed Unive rsity of 00:00:00 [facility] Influenza High Dose 2016-11-14 Completed Unive rsity of 00:00:00 [facility] Influenza High Dose 2016-11-14 Completed Unive rsity of 00:00:00 [facility] Influenza High Dose 2016-11-14 Completed Unive rsity of 00:00:00 [facility] Influenza High Dose 2016-11-14 Completed Unive rsity of 00:00:00 [facility] Influenza Hd 2016-11-14 Completed Art [facility]le ge 00:00:00 of Medicine Influenza Hd 2016-11-14 Completed Art Colle ge 00:00:00 of Medicine Influenza Hd 2016-11-14 Completed Art Colle ge 00:00:00 of Medicine Vital Signs Vital Name Observation Time Observation Value Comments Source HEIGHT 2019-07-08 00:00:00 147.3 cm WEIGHT 2019-07-08 00:00:00 57.743 kg Systolic blood 2022-07-12 20:34:00 117 mm[Hg] Univer sity of pressure [facility] Diastolic blood 2022-07-12 20:34:00 54 mm[Hg] Unive rsity of pressure [facility] Heart rate 2022-07-12 20:34:00 87 /min [facility] Body temperature 2022-07-12 20:34:00 36.56 Monique [facility] Respiratory rate 2022-07-12 20:34:00 17 /min [facility] 2022-07-12 20:34:00 63.957 kg [facility] ty [facility] BMI 2022-07-12 20:34:00 24.51 kg/m2 [facility] Oxygen saturation in 2022-07-12 20:34:00 96 /min [facility] Arterial blood by [facility] Pulse oximetry Branch Systolic blood 2022-06-28 15:18:00 130 mm[Hg] Univer sity of pressure [facility] Diastolic blood 2022-06-28 15:18:00 55 mm[Hg] Unive rsity of pressure [facility] Heart rate 2022-06-28 14:36:00 75 /min Universi ty of [facility] Respiratory rate 2022-06-28 14:36:00 20 /min Univ ers[facility] Body height 2022-06-28 14:36:00 161.5 cm [facility] Body weight 2022-06-28 14:36:00 65 kg [facility] BMI 2022-06-28 14:36:00 24.91 kg/m2 [facility] Oxygen saturation in 2022-06-28 14:36:00 98 /min University of Arterial blood by [facility] Pulse oximetry Branch Systolic blood 2022-06-09 18:20:00 126 mm[Hg] Univer sity of pressure [facility] Diastolic blood 2022-06-09 18:20:00 56 mm[Hg] Unive rsity of pressure [facility] Heart rate 2022-06-09 18:20:00 83 /min [facility] Oxygen saturation in 2022-06-09 18:20:00 93 /min University of Arterial blood by [facility] Pulse oximetry Branch Respiratory rate 2022-06-09 18:18:00 17 /min Univ ersity [facility] Body height 2022-06-09 18:18:00 157.5 cm [facility] Body weight 2022-06-09 18:18:00 64.411 kg [facility] BMI 2022-06-09 18:18:00 25.97 kg/m2 [facility] Systolic blood 2022-06-07 21:32:00 126 mm[Hg] Univer sity of pressure [facility] Diastolic blood 2022-06-07 21:32:00 71 mm[Hg] Unive rsity of pressure [facility] Heart rate 2022-06-07 21:32:00 77 /min [facility] Body temperature 2022-06-07 21:32:00 37.28 Monique Univ ers[facility] Respiratory rate 2022-06-07 21:32:00 16 /min Univ [facility] Body height 2022-06-07 21:32:00 157.5 cm [facility] Body weight 2022-06-07 21:32:00 64.547 kg [facility] BMI 2022-06-07 21:32:00 26.03 kg/m2 [facility] Oxygen saturation in 2022-06-07 21:32:00 97 /min University of Arterial blood by [facility] angelica Pulse oximetry Branch WEIGHT 2022-06-01 05:00:00 64.638 kg HEIGHT 2022-05-28 08:00:00 157.5 cm WEIGHT 2022-05-28 08:00:00 64 kg WEIGHT 2022-06-01 05:00:00 64.638 kg HEIGHT 2022-05-28 08:00:00 157.5 cm WEIGHT 2022-05-28 08:00:00 64 kg Systolic blood 2022-05-25 19:34:00 128 mm[Hg] Univer sity of pressure [facility] Diastolic blood 2022-05-25 19:34:00 54 mm[Hg] Unive rsity of pressure [facility] Heart rate 2022-05-25 19:34:00 77 /min [facility] Body height 2022-05-25 19:34:00 157.5 cm [facility] Body weight 2022-05-25 19:34:00 62.551 kg [facility] BMI 2022-05-25 19:34:00 25.22 kg/m2 [facility] Oxygen saturation in 2022-05-25 19:34:00 95 /min University of Arterial blood by [facility] Pulse oximetry Branch Systolic blood 2022-05-17 19:02:00 166 mm[Hg] Univer sity of pressure [facility] Diastolic blood 2022-05-17 19:02:00 75 mm[Hg] Unive rsity of pressure [facility] Heart rate 2022-05-17 19:02:00 104 /min [facility] Body temperature 2022-05-17 19:02:00 36.78 Monique Univ [facility] Respiratory rate 2022-05-17 19:02:00 18 /min Univ [facility] Body height 2022-05-17 19:02:00 144.8 cm [facility] Body weight 2022-05-17 19:02:00 64.955 kg [facility] BMI 2022-05-17 19:02:00 30.99 kg/m2 [facility] Oxygen saturation in 2022-05-17 19:02:00 98 /min University of Arterial blood by [facility] Pulse oximetry Branch Systolic blood [...] 2022-04-08 19:24:00 26.16 kg/m2 [facility] Systolic blood 2022-04-11 15:24:00 136 mm[Hg] Univer sity of pressure [facility] Diastolic blood 2022-04-11 15:24:00 76 mm[Hg] Unive rsity of pressure [facility] Heart rate 2022-04-11 15:24:00 83 /min [facility] Body height 2022-04-11 15:24:00 157.5 cm [facility] Body weight 2022-04-11 15:24:00 63.504 kg [facility] BMI 2022-04-11 15:24:00 25.61 kg/m2 [facility] Oxygen saturation in 2022-04-11 15:24:00 97 /min University of Arterial blood by [facility] Pulse oximetry Branch Systolic blood 2022-03-25 16:35:00 140 mm[Hg] [facility] pressure Medicine Diastolic blood 2022-03-25 16:35:00 60 mm[Hg] [facility] Medicine Heart rate 2022-03-25 16:35:00 79 /min [facility] Respiratory rate 2022-03-25 16:35:00 16 /min [facility] Body height 2022-03-25 16:35:00 160 cm [facility] Body weight 2022-03-25 16:35:00 64.32 kg [facility] BMI 2022-03-25 16:35:00 25.12 kg/m2 [facility] Systolic blood 2022-03-11 20:35:00 136 mm[Hg] Univer sity of pressure [facility] Diastolic blood 2022-03-11 20:35:00 76 mm[Hg] Unive rsity of pressure [facility] Heart rate 2022-03-11 20:33:00 83 /min [facility] Body temperature 2022-03-11 20:33:00 37.11 Monique Univ ersity of [facility] Body height 2022-03-11 20:33:00 157.5 cm Universi ty of [facility] Body weight 2022-03-11 20:33:00 63.504 kg Universi ty of [facility] BMI 2022-03-11 20:33:00 25.61 kg/m2 [facility] [place] [facility] [place] Oxygen saturation in 2022-03-11 20:33:00 97 /min University of Arterial blood by [facility] angelica Pulse oximetry Branch Systolic blood 2022-03-11 [...] /min University of Arterial blood by [place] [facility] angelica Pulse oximetry Branch Systolic blood 2022-02-25 23:37:00 131 mm[Hg] Univer sity of pressure [facility] Diastolic blood 2022-02-25 23:37:00 85 mm[Hg] Unive rsity of pressure [facility] Heart rate 2022-02-25 23:37:00 70 /min [facility] Body temperature 2022-02-25 23:37:00 36.83 [...] 99 /min University of Arterial blood by [facility] angelica Pulse oximetry Branch Systolic blood 2022-01-21 21:34:00 133 mm[Hg] Univer sity of pressure [facility] Diastolic blood 2022-01-21 21:34:00 75 mm[Hg] Unive rsity of pressure [facility] Heart rate 2022-01-21 21:34:00 80 /min [facility] Body temperature 2022-01-21 21:34:00 36.5 Monique [facility] Body height 2022-01-21 21:34:00 144.8 cm [facility] Body weight 2022-01-21 21:34:00 62.596 kg [facility] BMI 2022-01-21 21:34:00 29.86 kg/m2 [facility] Oxygen saturation in 2022-01-21 21:34:00 96 /min University of Arterial blood by [facility] Pulse oximetry Branch Systolic blood [...] 96 /min University of Arterial blood by [facility] angelica Pulse oximetry Branch Systolic blood 2021-12-03 18:46:00 148 mm[Hg] Univer sity of pressure [facility] Diastolic blood 2021-12-03 18:46:00 70 mm[Hg] Unive rsity of pressure [facility] Heart rate 2021-12-03 18:45:00 97 /min [facility] Body temperature 2021-12-03 18:45:00 37.33 Monique [facility] Body height 2021-12-03 18:45:00 144.8 cm [facility] Body weight 2021-12-03 18:45:00 62.143 kg [facility] BMI 2021-12-03 18:45:00 29.65 kg/m2 [facility] Oxygen saturation in 2021-12-03 18:45:00 96 /min University of Arterial blood by [facility] Pulse oximetry Branch Systolic blood 2021-11-26 20:46:00 158 mm[Hg] Univer sity of pressure [facility] Diastolic blood 2021-11-26 20:46:00 72 mm[Hg] Unive rsity of pressure [facility] Heart rate 2021-11-26 20:46:00 98 /min [facility] Body height 2021-11-26 20:46:00 160 cm [facility] Body weight 2021-11-26 20:46:00 61.689 kg [facility] BMI 2021-11-26 20:46:00 24.09 kg/m2 [facility] Systolic blood 2021-11-12 19:46:00 132 mm[Hg] [facility] pressure Medicine Diastolic blood 2021-11-12 19:46:00 57 mm[Hg] [facility] pressure Medicine Heart rate 2021-11-12 19:46:00 78 /min [facility] Body temperature 2021-11-12 19:46:00 36.67 Monique [facility] Respiratory rate 2021-11-12 19:46:00 16 /min [facility] Body height 2021-11-12 19:46:00 160 cm [facility] ollege of [facility] Body weight 2021-11-12 19:46:00 61.689 kg [facility] ollege [facility] BMI 2021-11-12 19:46:00 24.09 [facility] 2021-11-12 19:46:00 96 /min [facility] of Arterial blood by Medicine Pulse oximetry Systolic blood 2021-11-02 18:10:00 152 mm[Hg] Univer sity of pressure [facility] Diastolic blood 2021-11-02 18:10:00 73 mm[Hg] Unive rsity of [facility] Heart rate 2021-11-02 18:10:00 83 /min Universi ty of [facility] Body height 2021-11-02 18:10:00 160 cm Universi ty [facility] Body weight 2021-11-02 18:10:00 61.689 kg Universi ty [facility] BMI 2021-11-02 18:10:00 24.09 kg/m2 Univers ty [facility] Oxygen saturation in 2021-11-02 18:10:00 95 /min [facility] Arterial blood by [facility] Pulse oximetry Branch Systolic blood 2021-11-01 15:17:00 155 mm[Hg] [facility] Medicine Diastolic blood 2021-11-01 15:17:00 70 mm[Hg] [facility] Medicine Heart rate 2021-11-01 15:17:00 80 /min [facility] ol[facility] Body height 2021-11-01 15:17:00 160 cm [facility] 2021-11-01 15:17:00 58.968 kg [facility] ol[facility] of [facility] BMI 2021-11-01 15:17:00 23.03 kg/m2 [facility] ol[facility] of [facility] Systolic blood 2021-10-25 20:11:00 138 mm[Hg] Univer sity of [facility] Diastolic blood 2021-10-25 20:11:00 64 mm[Hg] Unive rsity of pressure [facility] Heart rate 2021-10-25 20:11:00 64 [...] 96 /min University of Arterial blood by [place] [facility] Pulse oximetry Branch Systolic blood 2021-07-09 21:36:00 132 mm[Hg] Univer sity of pressure [facility] Diastolic blood 2021-07-09 21:36:00 65 mm[Hg] Unive rsity of pressure [facility] Body temperature 2021-07-09 21:36:00 36.33 Monique Univ [facility] Heart rate 2021-07-09 21:10:00 73 /min Universi ty of [facility] Body height 2021-07-09 21:10:00 142.2 cm [facility] Body weight 2021-07-09 21:10:00 61.598 kg [facility] BMI 2021-07-09 21:10:00 30.45 kg/m2 [facility] Oxygen saturation in 2021-07-09 21:10:00 96 /min [facility] Arterial blood by [facility] Pulse oximetry Branch Systolic blood 2021-05-03 15:25:00 121 mm[Hg] [facility] pressure Medicine Diastolic blood 2021-05-03 15:25:00 65 mm[Hg] [facility] pressure Medicine Heart rate 2021-05-03 15:25:00 88 /min [facility] Systolic blood 2020-12-23 21:48:00 137 mm[Hg] [facility] pressure Medicine Diastolic blood 2020-12-23 21:48:00 69 mm[Hg] [facility] pressure Medicine Heart rate 2020-12-23 21:48:00 73 /min [facility] ollege of Medicine Body temperature 2020-12-23 21:48:00 36.83 [facility] Respiratory rate 2020-12-23 21:48:00 15 /min [facility] Body height 2020-12-23 21:48:00 162.6 cm [facility] ollege of Medicine Body weight 2020-12-23 21:48:00 58.968 kg [facility] ollege of Medicine BMI 2020-12-23 21:48:00 22.31 kg/m2 [facility] ollege of Medicine Systolic blood 2020-05-04 15:57:00 131 mm[Hg] [facility] pressure Medicine Diastolic blood 2020-05-04 15:57:00 60 mm[Hg] [facility] pressure Medicine Heart rate 2020-05-04 15:57:00 67 /min [facility] ollege of Medicine Respiratory rate 2020-05-04 15:57:00 18 /min [facility] Body height 2020-05-04 15:57:00 147.3 cm [facility] ollege of [facility] Body weight 2020-05-04 15:57:00 58.514 kg [facility] ollege of Medicine BMI 2020-05-04 15:57:00 26.96 kg/m2 [facility] ollege of Medicine Systolic blood 2020-01-06 16:58:00 146 mm[Hg] [facility] Medicine Diastolic blood 2020-01-06 16:58:00 71 mm[Hg] [facility] Medicine Heart rate 2020-01-06 16:58:00 88 /min [facility] ollege of Medicine Body temperature 2020-01-06 16:58:00 36.44 [facility] Respiratory rate 2020-01-06 16:58:00 16 /min [facility] Body height 2020-01-06 16:58:00 144.8 cm [facility] ollege of Medicine Body weight 2020-01-06 16:58:00 58.968 kg [facility] ollege of Medicine BMI 2020-01-06 16:58:00 28.13 kg/m2 [facility] ollege of Medicine Systolic blood 2020-01-06 16:58:00 146 mm[Hg] [facility] pressure Medicine Diastolic blood 2020-01-06 16:58:00 71 mm[Hg] [facility] pressure Medicine Heart rate 2020-01-06 16:58:00 88 /min [facility] ollege of [facility] Body temperature 2020-01-06 16:58:00 36.44 [facility] Respiratory rate 2020-01-06 16:58:00 16 /min [facility] Body height 2020-01-06 16:58:00 144.8 cm [facility] ollege of [facility] Body weight 2020-01-06 16:58:00 58.968 kg [facility] BMI 2020-01-06 16:58:00 28.13 kg/m2 [facility] Systolic blood 2019-10-07 14:05:00 127 mm[Hg] [facility] pressure Medicine Diastolic blood 2019-10-07 14:05:00 67 mm[Hg] [facility] Medicine Heart rate 2019-10-07 14:05:00 70 /min [facility] ollege of [facility] Body temperature 2019-10-07 14:05:00 36.39 [facility] Respiratory rate 2019-10-07 14:05:00 16 /min [facility] Body height 2019-10-07 14:05:00 162.6 cm [facility] ollege of [facility] Body weight 2019-10-07 14:05:00 58.968 kg [facility] BMI 2019-10-07 14:05:00 22.31 kg/m2 [facility] Systolic blood 2019-10-07 14:05:00 127 mm[Hg] [facility] pressure Medicine Diastolic blood 2019-10-07 14:05:00 67 mm[Hg] [facility] pressure Medicine Heart rate 2019-10-07 14:05:00 70 /min [facility] ollege of [facility] Body temperature 2019-10-07 14:05:00 36.39 [facility] Respiratory rate 2019-10-07 14:05:00 16 /min [facility] Body height 2019-10-07 14:05:00 162.6 cm [facility] Body weight 2019-10-07 14:05:00 58.968 kg [facility] BMI 2019-10-07 14:05:00 22.31 kg/m2 [facility] HEIGHT 2019-07-08 00:00:00 147.3 cm WEIGHT 2019-07-08 00:00:00 57.743 kg pulse rate 2019-07-01 08:14:01 80 /min [facility] blood pressure, 2019-07-01 08:14:01 71 mm[Hg] [facility] diastolic Health blood pressure, 2019-07-01 08:14:01 171 mm[Hg] [facility] systolic Health pulse rate 2019-06-25 09:35:00 76 /min [facility] blood pressure, 2019-06-25 09:35:00 77 mm[Hg] [facility] diastolic Health blood pressure, 2019-06-25 09:35:00 153 mm[Hg] [facility] systolic Health Procedures Procedure Date / Time Performing Clinician Source Performed EXTERNAL PROVIDER RECORDS 2022-07-21 05:01:00 Doctor Unassigned, [facility] HOME HEALTH - OTHER 2022-06-24 05:01:00 Doctor Unassigned, [facility] NM MYOCARDIUM PERFUSION 2022-06-23 16:20:[address] [facility] STRESS AND REST Medical Branch NUCLEAR STRESS TEST 2022-06-23 16:20:00 Ceci Lo [facility] CARDIOLOGY (DO NOT SCHED) Medica l Branch NM MYOCARDIUM PERFUSION 2022-06-23 16:20:[address] STRESS AND REST Medical Branch NUCLEAR STRESS TEST 2022-06-23 16:20:00 Teresita Sendbekah [facility] CARDIOLOGY (DO NOT SCHED) Medica l Branch NM MYOCARDIUM PERFUSION 2022-06-23 16:20:[address] STRESS AND REST Medical Branch NUCLEAR STRESS TEST 2022-06-23 16:20:00 Teresita Sendbekah [facility] CARDIOLOGY (DO NOT SCHED) Medica l Branch NM MYOCARDIUM PERFUSION 2022-06-23 16:20:[address] [facility] STRESS AND REST Medical [place] NUCLEAR STRESS TEST 2022-06-23 16:20:00 Teresita Sendbekah K.[facility] CARDIOLOGY (DO NOT SCHED) Medica l Branch BASIC METABOLIC PANEL 2022-06-11 13:49:00 [facility] (NA, K, CL, CO2, GLUCOSE, Medica l Branch BUN, CREATININE, CA) N-TERMINAL PRO-BNP 2022-06-11 13:49:00 Ceci Lo K.[facility] COMP. METABOLIC PANEL 2022-06-10 14:37:00 Ceci Lo [facility] ([id number]) [facility] N-TERMINAL PRO-BNP 2022-06-10 14:37:00 Ceci Lo [facility] HB ECG ROUTINE & RHYTHM 2022-05-25 19:30:[address] [facility] STRIP [facility] PNEUMOCOCCAL 20 CONJUGATE 2022-05-17 19:39:37 Angela Cunningham [facility] (PREVNAR 20) VACCINE Medical Bra [facility] ASSIGNMENT OF BENEFITS 2022-05-17 18:46:13 Doctor Unassigned, [facility] Name Medical Branch EXTERNAL PROVIDER RECORDS 2022-04-12 06:01:00 Doctor Rene, [facility] REFERRAL- 2022-04-03 06:01:00 Doctor Unaspring, [facility] REQUEST/RESPONSE [place] [facility] [place] CBC WITH DIFF 2022-03-11 21:42:00 Angela Cunningham [facility] URINE CULTURE 2022-03-11 21:42:00 Chary Donald [facility] REFERRAL- 2022-02-23 06:01:00 Doctor Rene, [facility] REQUEST/RESPONSE [facility] EMERGENCY SERVICES 2021-12-31 06:01:00 Doctor Rene, [facility] AGREEMENTS AND [facility] AUTHORIZATIONS FLU 2021-12-24 21:05:[address] [facility] VACC(),65+YR,0.5 Medica l Branch ML,IM,ADJUVANTED,QUAD(FLU AD) MR BRAIN WO CONTRAST 2021-11-19 15:41:00 Vernell, [facility] EXTERNAL PROVIDER RECORDS 2021-11-18 05:01:00 Doctor Rene, [facility] [place] [facility] COMPREHENSIVE METABOLIC 2021-11-12 20:56:00 Italia Preston [facility] Medicine HEMOGLOBIN A1C 2021-11-12 20:56:00 Italia Preston [facility] CBC W/AUTO DIFF WITH 2021-11-12 20:56:00 Italia Preston [facility] THYROID CASCADE PROFILE 2021-11-12 20:56:00 Italia Preston [facility] COMPREHENSIVE METABOLIC 2021-11-12 15:56:00 [facility] HEMOGLOBIN A1C 2021-11-12 15:56:00 [facility] CBC W/AUTO DIFF WITH 2021-11-12 15:56:00 [facility] PLATELETS [facility] THYROID CASCADE PROFILE 2021-11-12 15:56:00 [facility] HANDICAPPED PLACARD 2021-11-12 15:45:36 [facility] EXTERNAL PROVIDER RECORDS 2021-11-01 05:01:00 Doctor Rene, [facility] [place] [facility] [place] POCT URINALYSIS DIPSTICK 2021-11-01 00:00:00 Keerthi Cuenca [facility] AUTHORIZATION TO RELEASE 2021-10-25 05:01:00 Doctor Rene, [facility] PHI TO [facility] URINALYSIS 2021-09-03 13:22:00 Chary Donald [facility] LIPASE 2021-09-03 13:08:00 Chary Donald [facility] COMP. METABOLIC PANEL 2021-09-03 13:08:00 Chary Donald [facility] ([id number]) Medical [place] CBC WITH DIFF 2021-09-03 13:08:00 Chary Donald [facility] AMB REF TO UR[facility]Y [facility] 2021-05-03 10:53:33 [facility] POCT URINALYSIS DIPSTICK 2020-12-23 00:00:00 Keerthi Cuenca [facility] POCT URINALYSIS DIPSTICK 2020-12-23 00:00:00 [facility] POCT URINALYSIS DIPSTICK 2020-01-06 00:00:00 Keerthi Cuenca [facility] BASIC METABOLIC PANEL 2019-10-07 14:32:00 Keerthi Cuenca [facility] MAGNESIUM 2019-10-07 14:32:00 Keerthi Cuenca [facility] URIC ACID 2019-10-07 14:32:00 Keerthi Cuenca [facility] Plan of Care Planned Activity Planned [...] (Season Ended)] Future Scheduled 2022-03-25 Diabetic foot [facility] Test 10:27:27 examination of Medicine (regime/therapy) [code = 213217830] Future Scheduled 2022-03-25 Annual Diabetic [facility] Test 10:27:27 Retinopathy of Medicine Screening [code = Annual Diabetic Retinopathy Screening] Future Scheduled 2022-03-25 ZOSTER VACCINE (1 of [facility] Test 10:27:27 2) [code = ZOSTER of Medicin e VACCINE (1 of 2)] Future Scheduled 2022-03-25 Screening for [facility] Test 10:27:27 osteoporosis of Medicine (procedure) [code = 517529031] Future Scheduled 2022-03-25 Pneumococcal 65+ (2 [employer] Test 10:27:27 - PCV) [code = of Medicine Pneumococcal 65+ (2 - PCV)] Future Scheduled 2022-03-25 COVID-19 Vaccine (2 [employer] Test 10:27:27 - Moderna series) of Medicin e [code = COVID-19 Vaccine (2 - Moderna series)] Future Scheduled 2022-03-25 Medicare Awv [facility] Krist[facility] Test 10:27:27 (Initial) [code = of Medicin e Medicare Awv (Initial)] Future Scheduled 2022-03-25 FLU VACCINE > 6 [facility] Test 10:27:27 MONTHS [code = FLU of Medici ne VACCINE > 6 MONTHS] Future Scheduled 2022-03-25 Hemoglobin A1c [facility] Test 10:27:27 measurement of Medicine (procedure) [code = 57478130] Future Scheduled 2022-03-25 Fall Screen [code = [employer] Test 10:27:27 Fall Screen] of Medicine Future Scheduled 2022-03-25 TETANUS SHOT (ADULT) [employer] Test 10:27:27 [code = TETANUS [...] enter SCREENING] Future Scheduled 2021-11-15 Diabetic foot [facility] Test 19:39:46 examination of Medicine (regime/therapy) [code = 555666458] Future Scheduled 2021-11-15 ANNUAL DIABETIC [facility] Test 19:39:46 RETINOPATHY of Medicine SCREENING [code = ANNUAL DIABETIC RETINOPATHY SCREENING] Future Scheduled 2021-11-15 ZOSTER VACCINE (1 of [employer] Test 19:39:46 2) [code = ZOSTER of Medicin e VACCINE (1 of 2)] Future Scheduled 2021-11-15 Screening for [facility] Test 19:39:46 osteoporosis of Medicine (procedure) [code = 339835012] Future Scheduled 2021-11-15 Pneumococcal 65+ (2 [employer] Test 19:39:46 - PCV) [code = of Medicine Pneumococcal 65+ (2 - PCV)] Future Scheduled 2021-11-15 MEDICARE AWV [facility] Test 19:39:46 (Initial) [code = of Medicin e MEDICARE AWV (Initial)] Future Scheduled 2021-11-15 COVID-19 Vaccine (2 [employer] Test 19:39:46 - Moderna series) of Medicin e [code = COVID-19 Vaccine (2 - Moderna series)] Future Scheduled 2021-11-15 FLU VACCINE > 6 [facility] Test 19:39:46 MONTHS [code = FLU of Medici ne VACCINE > 6 MONTHS] Future Scheduled 2021-11-15 Hemoglobin A1c [facility] Test 19:39:46 measurement of Medicine (procedure) [code = 82119882] Future Scheduled 2021-11-15 FALL SCREEN [code = [employer] Test 19:39:46 FALL SCREEN] of Medicine Future Scheduled 2021-11-15 TETANUS SHOT (ADULT) [employer] Test 19:39:46 [code = TETANUS SHOT of Medi cine (ADULT)] Future Scheduled 2021-11-14 Diabetic foot [facility] Test 02:33:41 examination of Medicine (regime/therapy) [code = 743454809] Future Scheduled 2021-11-14 ANNUAL DIABETIC [facility] Test 02:33:41 RETINOPATHY of Medicine SCREENING [code = ANNUAL DIABETIC RETINOPATHY SCREENING] Future Scheduled 2021-11-14 ZOSTER VACCINE (1 of [employer] Test 02:33:41 2) [code = ZOSTER of Medicin e VACCINE (1 of 2)] Future Scheduled 2021-11-14 Screening for [facility] Test 02:33:41 osteoporosis of Medicine (procedure) [code = 886652722] Future Scheduled 2021-11-14 Pneumococcal 65+ (2 [employer] Test 02:33:41 - PCV) [code = of Medicine Pneumococcal 65+ (2 - PCV)] Future Scheduled 2021-11-14 MEDICARE AWV [facility] Test 02:33:41 (Initial) [code = of Medicin e MEDICARE AWV (Initial)] Future Scheduled 2021-11-14 COVID-19 Vaccine (2 [employer] Test 02:33:41 - Moderna series) of Medicin e [code = COVID-19 Vaccine (2 - Moderna series)] Future Scheduled 2021-11-14 FLU VACCINE > 6 [facility] Test 02:33:41 MONTHS [code = FLU of Medici ne VACCINE > 6 MONTHS] Future Scheduled 2021-11-14 Hemoglobin A1c [facility] Test 02:33:41 measurement of Medicine (procedure) [code = 67087656] Future Scheduled 2021-11-14 FALL SCREEN [code = [employer] Test 02:33:41 FALL SCREEN] of Medicine Future Scheduled 2021-11-14 TETANUS SHOT (ADULT) [employer] Test 02:33:41 [code = TETANUS SHOT of Medi cine (ADULT)] Future Scheduled 2021-11-12 HANDICAPPED PLACARD Ordered: [employer] Test 15:45:36 [code = NOCPT] 11/12/2021 of Medicine Future Scheduled 2021-10-[address] [facility] Test 00:00:00 (#1) [code = [facility] INFLUENZA VACCINE (#1)] Future Scheduled 2021-10-14 INFLUENZA [...] Future Scheduled 2021-05-04 ZOSTER VACCINE (1 of [employer] Test 15:51:29 2) [code = ZOSTER of Medicin e VACCINE (1 of 2)] Future Scheduled 2021-05-04 Screening for [facility] Test 15:51:29 osteoporosis of Medicine (procedure) [code = 299358447] Future Scheduled 2021-05-04 Pneumococcal 65+ (1 [employer] Test 15:51:29 of 1 - PPSV23) [code of Medi cine = Pneumococcal 65+ (1 of 1 - PPSV23)] Future Scheduled 2021-05-04 MEDICARE AWV [facility] Test 15:51:29 (Initial) [code = of Medicin e MEDICARE AWV (Initial)] Future Scheduled 2021-05-04 FLU VACCINE > 6 [facility] Test 15:51:29 MONTHS [code = FLU of Medici ne VACCINE > 6 MONTHS] Future Scheduled 2021-05-04 COVID-19 Vaccine (2 [employer] Test 15:51:29 - Moderna 3-dose of Medicine series) [code = COVID-19 Vaccine (2 - Moderna 3-dose series)] Future Scheduled 2021-05-04 FALL SCREEN [code = [employer] Test 15:51:29 FALL SCREEN] of Medicine Future Scheduled 2021-05-04 TETANUS SHOT (ADULT) [employer] Test 15:51:29 [code = TETANUS SHOT of Medi cine (ADULT)] Future Scheduled 2021-05-04 US RENAL BILATERAL Expected: [employer] Test 00:00:00 [code = 60958] 05/04/2021, of Medicine Expires: 05/04/2021 Future Scheduled [...] SCREENING] Future Scheduled 2021-01-03 COVID-19 Vaccine (1) [employer] Test 08:34:34 [code = COVID-19 of Medicine Vaccine (1)] Future Scheduled 2021-01-03 ZOSTER VACCINE (1 of [employer] Test 08:34:34 2) [code = ZOSTER of Medicin e VACCINE (1 of 2)] Future Scheduled 2021-01-03 Screening for [facility] Test 08:34:34 osteoporosis of Medicine (procedure) [code = 528250009] Future Scheduled 2021-01-03 Pneumococcal 65+ (1 [employer] Test 08:34:34 of 1 - PPSV23) [code of Medi cine = Pneumococcal 65+ (1 of 1 - PPSV23)] Future Scheduled 2021-01-03 MEDICARE AWV [facility] Test 08:34:34 (Initial) [code = of Medicin e MEDICARE AWV (Initial)] Future Scheduled 2021-01-03 FLU VACCINE > 6 [facility] ollege Test 08:34:34 MONTHS [code = FLU of Medici ne VACCINE > 6 MONTHS] Future Scheduled 2021-01-03 FALL SCREEN [code = [facility] Test 08:34:34 FALL SCREEN] of Medicine Future Scheduled 2021-01-03 TETANUS SHOT (ADULT) [facility] Test 08:34:34 [code = TETANUS SHOT of Medi cine (ADULT)] Future Scheduled 2020-10-[address] [facility] Test 00:00:00 (#1) [code = Medical Center INFLUENZA VACCINE (#1)] Diagnostic Test 2020-07-11 US RENAL BILATERAL Expected: [facility] Pending 00:00:00 [code = 11118] 07/11/2020, of Medicine Expires: 01/11/2021 Future Scheduled [...] [facility] Test 00:00:00 of 2) [code = [facility] SHINGLES VACCINES (1 of 2)] Future Scheduled 1948 COVID-19 VACCINE (1) [facility] Test 00:00:00 [code = COVID-[address] [facility] [address] VACCINE (1)] Future Scheduled 1936 COVID-[address] [facility] Test 00:00:00 (#1) [code = [facility] COVID-19 VACCINE (#1)] Future Scheduled [facility] (#1) [code = [facility] COVID-19 VACCINE (#1)] Future Scheduled 1936 COVID-[address] [facility] Test 00:00:00 (#1) [code = [facility] COVID-19 VACCINE (#1)] Future Scheduled 1936 COVID-[address] [facility] Test 00:00:00 (#1) [code = [facility] COVID-19 VACCINE (#1)] Future Scheduled 1936 COVID-[address] [facility] Test 00:00:00 (#1) [code = [facility] COVID-19 VACCINE (#1)] Future Scheduled 1936 DXA SCAN [code = DXA [facility] Test 00:00:00 SCAN] [facility] Future Scheduled 1936 DXA SCAN [code = DXA [facility] Test 00:00:00 SCAN] [facility] Future Scheduled 1936 DXA SCAN [code = DXA [facility] Test 00:00:00 SCAN] [facility] Future Scheduled 1936 DXA SCAN [code = DXA [facility] Test 00:00:00 SCAN] [facility] Future Scheduled 1936 DXA SCAN [code = DXA [facility] Test 00:00:00 SCAN] [facility] Future Scheduled 1936 DXA SCAN [code = DXA [facility] Test 00:00:00 SCAN] [facility] Future Scheduled 1936 DXA SCAN [code = DXA [facility] Test 00:00:00 SCAN] [facility] Future Scheduled PTH,INTACT,WITH Ordered: [facility] Denisha allen Test CALCIUM,PO4,CREAT 10/07/2019 of Medicin e [code = NOCPT] Future Scheduled TETANUS SHOT (ADULT) [facility] Test [code = TETANUS SHOT of Medi cine (ADULT)] Future Scheduled ZOSTER VACCINE (1 of [facility] Test 2) [code = ZOSTER of Medicin e VACCINE (1 of 2)] Future Scheduled OSTEOPOROSIS [facility] Test SCREENING [code = of [...] PLAN] Future Scheduled ZOSTER VACCINE (1 of [employer] Test 2) [code = ZOSTER of Medicin e VACCINE (1 of 2)] Future Scheduled OSTEOPOROSIS [facility] Test SCREENING [code = of Medicin e OSTEOPOROSIS SCREENING] Future Scheduled MEDICARE IPPE [facility] Test (WELCOME TO of Medicine MEDICARE) [code = MEDICARE IPPE (WELCOME TO MEDICARE)] Future Scheduled FLU VACCINE > 6 [facility] Test MONTHS [code = FLU of Medici ne VACCINE > 6 MONTHS] Future Scheduled FALL SCREEN [code = [employer] FALL SCREEN] of Medicine Future Scheduled TETANUS SHOT (ADULT) [employer] Test [code = TETANUS SHOT of Medi cine (ADULT)] Future Scheduled COVID-19 Vaccine (1) [employer] Test [code = COVID-19 of Medicine Vaccine (1)] Future Scheduled BMI FOLLOW UP PLAN [employer] Test [code = BMI FOLLOW of Medici ne UP PLAN] Future Scheduled ZOSTER VACCINE (1 of [employer] Test 2) [code = ZOSTER of Medicin e VACCINE (1 of 2)] Future Scheduled Screening for [facility] Test osteoporosis of Medicine (procedure) [code = 250418778] Future Scheduled MEDICARE IPPE [facility] [employer] [facility] Test (WELCOME TO of Medicine MEDICARE) [code = MEDICARE IPPE (WELCOME TO MEDICARE)] Future Scheduled FLU VACCINE > 6 [facility] Test MONTHS [code = FLU of Medici ne VACCINE > 6 MONTHS] Future Scheduled FALL SCREEN [code = [employer] [facility] FALL SCREEN] of Medicine Future Scheduled TETANUS SHOT (ADULT) [employer] Test [code = TETANUS SHOT of Medi cine (ADULT)] Encounters Start End Encounter Admission Attending Care Care Encounter Source Date/Time Date/Time Type Type Clinicians Facility Department ID 2020-11-17 Inpatient ER GUILLERMO, [facility] Urology [id number] SLE 14:52:09 LILIANA 2022-10-07 2022-10-07 Outpatient R WON MATT [facility] [id number] Univers 11:20:00 11:20:00 WON MATT karen [facility] 2022-09-22 2022-09-22 Outpatient R TERESITA [facility] [id number] Univers 15:00:00 15:00:00 SENDIL [facility] 2022-08-09 2022-08-09 [facility] [id number] Univers 11:30:00 11:30:00 SENDIL [facility] 2022-08-04 2022-08-04 [facility] [id number] Univers 00:00:00 00:00:00 [facility] [id number] ity of [place] [id number] Kilo as KRZYSZTOF?BLEA [phone] [address] MEDICAL OFFICE [facility] 2022-07-27 2022-07-27 [facility] [id number] Univers 00:00:00 00:00:00 Sendil Courtney [facility] [id number] ity of [place] [id number] PROF[place] [phone] [facility] [address] [facility] 2022-07-21 2022-07-21 Orders Doctor LILLIANA [id number] Univers 00:00:00 00:00:00 Only Unassigned, MACKENZIE [id number] ity of [place] [facility] [id number] Kilo as [phone] [address] 2022-07-18 2022-07-18 Refshruthi [facility] 1.2.840.114 [id number] Univers 00:00:00 00:00:00 [facility] 350.1.13.10 it[place] of [place] 4.2.7.2.686 Kilo as KRZYSZTOF?BLEA [id number] [address] MEDICAL OFFICE [facility] 2022-07-13 2022-07-13 Patient Octavio [facility] 1.2.840.114 [id number] Univers 00:00:00 00:00:00 Secure Ms Angela [facility] 350.1.13.10 ity [facility] 4.2.7.2.686 Kilo as KRZYSZTOF?BLEA [phone] [facility] NATALIE [address] [facility] 2022-07-12 2022-07-12 Outpatient R TERESITA [facility] [id number] Univers 14:00:00 16:32:11 SENDIL karina [facility] 2022-07-12 2022-07-12 Office [facility] 1.2.840.114 [id number] Univers 14:00:00 16:32:11 Visit Ceci ALBRECHT 350.1.13.10 ity [facility] 4.2.7.2.[place] [id number] [facility] NAL 9 [facility] 2022-07-12 2022-07-12 Telephone Teresita [facility] 1.2.406.457 [id number] Univers 00:00:00 00:00:00 Sendil Courtney ALBRECHT 350.1.13.10 ity [facility] 4.2.7.2.[place] [phone] [facility] NAL 9 [facility] 2022-07-08 2022-07-08 [employer] Lab, Thom - Sd [facility] 1.2.840.1 14 [id number] Univers 09:00:00 09:15:00 Visit Angela Cunningham [facility] 350.1.13.10 ity of [place] 4.2.7.2.686 Kilo as KRZYSZTOF?BLEA [id number] [facility] NATALIE [address] [facility] 2022-07-08 2022-07-08 Outpatient R ANGELA CUNNINGHAM [facility] [id number] Univers 09:00:00 09:00:00 ANGELA CUNNINGHAM [facility] 2022-07-08 2022-07-08 Refill [facility] 1.2.840.114 [id number] Univers 00:00:00 00:00:00 [facility] 350.1.13.10 ity [facility] 4.2.7.2.686 Kilo as KRZYSZTOF?BLEA [id number] [address] OFFICE [facility] 2022-07-01 2022-07-01 Outpatient R TASIA CUNNINGHAMINE [facility] [id number] Univers 11:20:00 11:20:00 CLAIREKaren ANGELA collins [facility] 2022-06-28 2022-06-28 Outpatient R OCTAVIOANGELA [facility] [id number] Univers 09:20:00 10:19:27 CLAIREKaren ANGELA [facility] 2022-06-28 2022-06-28 Office [facility] 1.2.840.114 [id number] Univers 09:20:00 10:19:27 Visit [facility] 350.1.13.10 it[place] of [place] 4.2.7.2.686 Kilo as KRZYSZTOF?BLEA [phone] [address] OFFICE [facility] 2022-06-28 2022-06-28 Telephone [facility] 1.2.922.446 [id number] Univers 00:00:00 00:00:00 [facility] 350.1.13.10 ity of [place] 4.2.7.2.686 Kilo as KRZYSZTOF?BLEA [id number] [address] 2022-06-24 2022-06-24 Telephone [facility] 1.2.277.133 [id number] Univers 00:00:00 00:00:00 Ceci Valdez [place] 350.1.13.10 ity of [place].7.2.[place] [phone] [facility] 059 [facility] 2022-06-24 2022-06-24 Orders Doctor TIJERINA 1.2.840.114 [id number] Univers 00:00:00 00:00:00 Only Unassigned, MACKENZIE 350.1.13.10 ity of [place] [facility] 4.2.7.2.686 Kilo as [id number] [address] 2022-06-23 2022-06-23 [facility] 1.2.840.114 [id number] Univers 08:13:16 23:59:00 Encounter Sendil Courtney ALBRECHT 350.1.13.10 ity of [place] 4.2.7.2.686 [facility] [id number] [facility] [address] 2022-06-23 2022-06-23 [facility] 1.2.840.114 [id number] Univers 08:12:54 08:12:54 Encounter Sendil Courtney ALBRECHT 350.1.13.10 ity of [place] 4.2.7.2.686 [facility] [id number] [facility] [address] 2022-06-23 2022-06-23 [facility] 1.2.840.114 [id number] Univers 08:12:41 08:12:41 Encounter Sendil Courtney ALBRECHT 350.1.13.10 ity of [place] 4.2.7.2.6 [facility] [id number] [facility] [address] 2022-06-23 2022-06-23 Outpatient R [facility] [id number] Univers 08:12:25 08:11:00 SENDIL ity of [facility] 2022-06-23 2022-06-23 [facility] 1.2.840.114 [id number] Univers 08:00:00 08:11:00 Encounter Sendil Courtney ALBRECHT 350.1.13.10 ity of [place] 4.2.7.2.6 [facility] [phone] [place] [address] [place] 2022-06-21 2022-06-21 Outpatient R [facility] [id number] Univers 09:00:00 09:00:00 SENDIL ity of [facility] 2022-06-21 2022-06-21 Telephone [facility] 1.2.379.816 [id number] Univers 00:00:00 00:00:00 Sendil Courtney ALBRECHT 350.1.13.10 ity of [place] 4.2.7.2.686 [facility] PROFESSIO [phone] Mi dical NAL 059 [facility] 2022-06-20 2022-06-20 [employer] Abdiel, Kristy Lab Main [facility] 1.2.8 40.114 [id number] Univers 07:45:00 08:00:00 Visit Ceci Lo 350.1.13. 10 it[place] of [place].2.7.2.[place] [phone] [facility] 353 [facility] 2022-06-20 2022-06-20 Outpatient [facility] [id number] Univers 07:45:00 07:45:00 SENDIL itkaren [facility] 2022-06-16 2022-06-16 Telephone [facility] 1.2.363.244 [id number] Univers 00:00:00 00:00:00 Ceci ALBRECHT 350.1.13.10 ity of [facility] 4.2.7.2.[place] [phone] [place] [address] [facility] 2022-06-16 2022-06-16 Telephone [facility] 1.2.627.912 [id number] Univers 00:00:00 00:00:00 Ceci ALBRECHT 350.1.13.10 ity of [place].2.7.2.[place] [phone] Mi dicky NAL [address] [place] [address] 2022-06-15 2022-06-15 Telephone [facility] 1.2.831.294 [id number] Univers 00:00:00 00:00:00 Ceci ALBRECHT 350.1.13.10 ity of [facility] 4.2.7.2.[place] [id number] [address] 2022-06-13 2022-06-13 Outpatient [facility] [id number] Univers 15:30:00 15:30:00 SENDIL itkaren [facility] 2022-06-13 2022-06-13 Telephone [facility] 1.2.155.274 [id number] Univers 00:00:00 00:00:00 Sendbekah ALBRECHT 350.1.13.10 ity of [facility] 4.2.7.2.[place] [phone] Mi dicky NAL 059 [facility] 2022-06-11 2022-06-11 [employer] Abdiel, Adc Lab Main [facility] 1.2.8 40.114 [id number] Univers 08:30:00 08:45:00 Visit Ceci Lo 350.1.13. 10 ity of [place].2.7.2.686 [place] [phone] Mi dicky NAL 353 [facility] 2022-06-11 2022-06-11 Outpatient R TERESITA [facility] [id number] Univers 08:30:00 08:30:00 SENDIL ity of [facility] 2022-06-10 2022-06-10 [employer] Abdiel, Adc Lab Main [facility] 1.2.8 40.114 [id number] Univers 09:15:00 09:30:00 Visit Ceci Lo 350.1.13. 10 ity of [place].2.7.2.[place] [phone] [address] 2022-06-10 2022-06-10 Outpatient R TERESITA [facility] [id number] Univers 09:15:00 09:15:00 SENDIL ity [facility] 2022-06-10 2022-06-10 Refshruthi [facility] 1.2.840.114 [id number] Univers 00:00:00 00:00:00 [facility] 350.1.13.10 ity of [place] 4.2.7.2.686 Kilo as KRZYSZTOF?BLEA [phone] Mi adolphcleopatra [address] 2022-06-10 2022-06-10 Telephone Teresita [facility] 1.2.900.466 [id number] Univers 00:00:00 00:00:00 Sendbekah ALBRECHT 350.1.13.10 ity of [facility] 4.2.7.2.[place] [phone] [facility] NAL 9 [facility] 2022-06-09 2022-06-09 Outpatient R TERESITA [facility] [id number] Univers 13:30:00 14:26:56 SENDIL itkaren [facility] 2022-06-09 2022-06-09 Office [facility] 1.2.840.114 [id number] Univers 13:30:00 14:26:56 Visit Ceci ALBRECHT 350.1.13.10 ity of [place].2.7.2.[place] [phone] [address] 2022-06-08 2022-06-08 Patient [facility] 1.2.840.114 [id number] Univers 00:00:00 00:00:00 Outreach [facility] 350.1.13.10 i ty of [place] 4.2.7.2.686 Kilo as KRZYSZTOF?BLEA [id number] [address] OFFICE [facility] 2022-06-07 2022-06-07 Outpatient R ANGELA CUNNINGHAM [facility] [id number] Univers 16:20:00 17:24:14 ANGELA CUNNINGHAM [facility] 2022-06-07 2022-06-07 Office [facility] 1.2.840.114 [id number] Univers 16:20:00 17:24:14 Visit [facility] 350.1.13.10 ity of [place] 4.2.7.2.686 Kilo as KRZYSZTOF?BLEA [id number] [address] OFFICE [facility] 2022-06-07 2022-06-07 Telephone [facility] 1.2.313.959 [id number] Univers 00:00:00 00:00:00 [facility] 350.1.13.10 ity of [place] 4.2.7.2.686 Kilo as KRZYSZTOF?BLEA [id number] [address] OFFICE [facility] 2022-06-02 2022-06-02 Outpatient R ANGELA CUNNINGHAM [facility] [id number] Univers 14:20:00 14:20:00 ANGELA CUNNINGHAM [facility] 2022-05-28 2022-06-01 Inpatient ER BUDDY [facility] Medical ICU 20 [id number] [facility] 07:43:00 15:42:00 STELLA 2022-06-01 2022-06-01 Outpatient R TERESITA [facility] [id number] Univers 15:30:00 15:30:00 SENDIL karen [facility] 2022-05-25 2022-05-25 Outpatient R TERESITA [facility] [id number] Univers 14:00:00 15:24:40 SENDIL [facility] 2022-05-25 2022-05-25 Office [facility] 1.2.840.114 [id number] Univers 14:00:00 15:24:40 Visit Ceci Valdez [place] 350.1.13.10 ity [facility] 4.2.7.2.[place] [phone] Mi dical NAL 059 [facility] 2022-05-17 2022-05-17 Outpatient ANGELA LIZ [facility] [id number] Univers 13:40:00 15:02:27 [facility] 2022-05-17 2022-05-17 Office [facility] 1.2.840.114 [id number] Univers 13:40:00 15:02:27 Visit [facility] 350.1.13.10 ity [facility] 4.2.7.2.686 [place]ilo as KRZYSZTOF?BLEA [phone] Mi dical KNEY [address] MEDICAL OFFICE BUILDING 2022-05-17 2022-05-17 Orders Doctor LILLIANA 1.2.840.114 [id number] Univers 00:00:00 00:00:00 Only Unassigned, MACKENZIE 350.1.13.10 ity of [place] [facility] 4.2.7.2.686 Kilo as [id number] [facility] [address] 2022-04-23 2022-04-23 Refill [facility] 1.2.840.114 [id number] Univers 00:00:00 00:00:00 [facility] 350.1.13.10 ity of [place] 4.2.7.2.686 Kilo as KRZYSZTOF?BLEA [phone] [facility] [address] MEDICAL OFFICE [facility] 2022-04-22 2022-04-22 Refshruthi Cunningham[facility] 1.2.840.114 [id number] Univers 00:00:00 00:00:00 [facility] 350.1.13.10 ity of [place] 4.2.7.2.686 Kilo as KRZYSZTOF?BLEA [id number] [facility] [address] MEDICAL OFFICE [facility] 2022-04-15 2022-04-15 Outpatient Braulio CUNNINGHAM [facility] [id number] Univers 09:20:00 09:20:00 [facility] 2022-04-12 2022-04-12 Orders Doctor LILLIANA 1.2.840.114 [id number] Univers 00:00:00 00:00:00 Only Unassigned, MACKENZIE 350.1.13.10 [facility] 4.2.7.2.686 Kilo as [phone] [address] 2022-04-11 2022-04-11 Outpatient WON SALDIVAR [facility] [id number] Univers 09:00:00 09:00:00 WON MATT [facility] 2022-04-08 2022-04-08 Outpatient WON SALDIVAR [facility] [id number] Univers 13:40:00 14:51:58 WON MATT [facility] 2022-04-08 2022-04-08 Office Vernell [facility] 1.2.840.114 [id number] Univers 13:40:00 14:51:58 Visit Won [facility] 350.1.13.10 ity of [place] 4.2.7.2.686 Kilo as KRZYSZTOF?BLEA [phone] [facility] [address] [facility] OFFICE [facility] 2022-04-08 2022-04-08 Nurse Nurse, Thom-Sd Neurology [facility] 1. 2.840.114 [id number] Univers 13:00:00 14:50:23 Visit Unknown, Attending HEALTH 350.1.13.10 ity of [place] 4.2.7.2.686 Kilo as KRZYSZTOF?BLEA [phone] [address] MEDICAL OFFICE BUILDING 2022-04-03 2022-04-03 Orders Doctor LILLIANA 1.2.840.114 [id number] [facility] 00:00:00 00:00:00 Only Unassigned, MACKENZIE 350.1.13.10 ity of [place] [facility] 4.2.7.2.686 Kilo as [id number] [address] 2022-03-25 2022-03-25 Office Jh [facility] 1.2.840.114 [id number] [facility] 10:20:00 11:00:00 Visit Emma AMBULATOR 350.1.13.21 College Y 0.2.7.2.[id number] [facility] 335 e 2022-03-24 2022-03-24 Telephone [facility] 1.2.352.376 [id number] Univers 00:00:00 00:00:00 Jasper HEALTH 350.1.13.10 ity of [place] 4.2.7.2.686 Kilo as KRZYSZTOF?BLEA [id number] [address] MEDICAL OFFICE [facility] 2022-03-18 2022-03-18 Telephone [facility] 1.2.338.292 [id number] Univers 00:00:00 00:00:00 Angela HEALTH 350.1.13.10 ity of [place] 4.2.7.2.686 Kilo as KRZYSZTOF?BLEA [id number] [address] MEDICAL OFFICE [facility] 2022-03-15 2022-03-15 Telephone Vernell [facility] 1.2.840.114 [id number] Univers 00:00:00 00:00:00 [facility] HEALTH 350.1.13.10 ity of [place] 4.2.7.2.686 Kilo as KRZYSZTOF?BLEA [phone] [address] MEDICAL OFFICE [facility] 2022-03-11 2022-03-11 [employer] Lab, Ang - Db [facility] 1.2.840.1 14 [id number] Univers 15:30:00 15:47:42 Visit [facility] 350.1.13.10 ity of [place] 4.2.7.2.686 Kilo as KRZYSZTOF?BLEA [id number] Mi salvatore ESTRADA [address] MEDICAL OFFICE [facility] 2022-03-11 2022-03-11 Outpatient R OCTAVIO [facility] [id number] Univers 13:40:00 15:35:06 [facility] 2022-03-11 2022-03-11 Office [facility] 1.2.840.114 [id number] Univers 13:40:00 15:35:06 Visit [facility] 350.1.13.10 [facility] 4.2.7.2.686 Kilo as KRZYSZTOF?BLEA [id number] Mi salvatore DAWKINS [address] [facility] OFFICE [facility] 2022-03-11 2022-03-11 Office [facility] 1.2.840.114 [id number] Univers 08:00:00 09:15:[address] [facility] 350.1.13.10 it y of [place] 4.2.7.2.686 Kilo as KRZYSZTOF?BLEA [phone] Mi salvatore ESTRADA [address] [facility] OFFICE [facility] 2022-03-04 2022-03-04 Outpatient Braulio SILVESTRE [facility] [id number] Univers 10:30:00 10:30:00 ARASELI karen [facility] 2022-02-25 2022-02-25 Urgent Tamela Lucia [facility] .2.840.114 [id number] Univers 17:40:00 18:00:00 Care Unknown, [facility] HEALTH 350.1.13.10 ity of [place] 4.2.7.2.686 Kilo as KRZYSZTOF?BLEA [phone] Mi salvatore ESTRADA [address] MEDICAL OFFICE [facility] 2022-02-25 2022-02-25 Outpatient Braulio LUCIA [facility] [id number] Univers 17:40:00 17:40:00 TAMELA collins [facility] 2022-02-25 2022-02-25 Outpatient R OCTAVIO [facility] [id number] Univers 14:00:00 14:00:00 [facility] 2022-02-23 2022-02-23 Orders Doctor LILLIANA 1.2.840.114 [id number] Univers 00:00:00 00:00:00 Only Unassigned, MACKENZIE 350.1.13.10 ity of [place] HOSPITAL 4.2.7.2.686 Kilo as [id number] [address] 2022-01-21 2022-01-21 Outpatient [facility] [id number] Univers 15:40:00 16:34:00 [facility] 2022-01-21 2022-01-21 Office [facility] 1.2.840.114 [id number] Univers 15:40:00 16:34:00 Visit [facility] 350.1.13.10 ity [facility] 4.2.7.2.686 Kilo as KRZYSZTOF?BLEA [id number] Mi salvatore [address]WK[address] MEDICAL OFFICE [facility] 2021-12-31 2021-12-31 Outpatient [facility] [id number] Univers 11:20:00 11:20:00 [facility] 2021-12-31 2021-12-31 Orders Doctor LILLIANA 1.2.840.114 [id number] Univers 00:00:00 00:00:00 Only Unassigned, MACKENZIE 350.1.13.10 ity of [place] [facility] 4.2.7.2.686 Kilo as [phone] [address] 2021-12-24 2021-12-24 Outpatient [facility] [id number] Univers 14:30:00 15:49:08 CHARY ity [facility] 2021-12-24 2021-12-24 Office [facility] 1.2.840.114 [id number] Univers 14:30:00 15:49:08 Visit Chary Jyotsna HEALTH 350.1.13.10 i ty of [place] 4.2.7.2.686 Kilo as KRZYZSTOF?BLEA [id number] Mi salvatore [address]WKINS[address] MEDICAL OFFICE [facility] 2021-12-23 2021-12-23 Abstract [facility] 1.2.840.114 [id number] Univers 00:00:00 00:00:00 [place] HEALTH 350.1.13.10 ity of [place] 4.2.7.2.686 Kilo as KRZYSZTOF?BLEA [id number] [address] OFFICE [facility] 2021-12-17 2021-12-17 Outpatient R BETO, [facility] [id number] Univers 11:00:00 11:00:00 DANIEL collins o f [facility] 2021-12-17 2021-12-17 Refill [facility] 1.2.840.114 [id number] Univers 00:00:00 00:00:00 [facility] 350.1.13.10 ity of [place] 4.2.7.2.686 Kilo as KRZYSZTOF?BLEA [id number] [address] 2021-12-10 2021-12-10 Outpatient [facility] [id number] Univers 09:20:00 09:20:00 [facility] 2021-12-10 2021-12-10 Outpatient R CLAIREKarenUNIV[facility] [id number] Univers 09:20:00 09:20:00 [facility] 2021-12-03 2021-12-03 Outpatient [facility] [id number] Univers 13:40:00 14:38:59 [facility] 2021-12-03 2021-12-03 Office [facility] 1.2.840.114 [id number] Univers 13:40:00 14:38:59 Visit [facility] 350.1.13.10 ity of [place] 4.2.7.2.686 Kilo as KRZYSZTOF?BLEA [phone] [address] 2021-11-27 2021-11-27 Refill [facility] 1.2.840.114 [id number] Univers 00:00:00 00:00:00 [place] HEALTH 350.1.13.10 ity of [place] 4.2.7.2.686 Kilo as KRZYSZTOF?BLEA [id number] Mi salvatore ESTRADA [address] MEDICAL OFFICE BUILDING 2021-11-26 2021-11-26 Outpatient R WON MATT [facility] [id number] Univers 15:40:00 16:24:04 WON MATT [facility] 2021-11-26 2021-11-26 Office Vernell [facility] 1.2.840.114 [id number] Univers 15:40:00 16:24:04 Visit Won Serra [facility] 350.1.13.10 ity of [place] 4.2.7.2.686 Kilo as KRZYSZTOF?BLEA [phone] Mi salvatore ESTRADA [address] MEDICAL OFFICE [facility] 2021-11-19 2021-11-19 Outpatient R WON MATT [facility] [id number] Univers 09:57:12 23:59:00 WON MATT [facility] 2021-11-19 2021-11-19 Hospital [facility] 1.2.565.247 [id number] Univers 09:57:12 23:59:00 Encounter Won Serra [place] 350.1.13.10 ity of [place].2.7.2.[place] [id number] [facility] [address] 2021-11-18 2021-11-18 Orders Doctor LILLIANA 1.2.840.114 [id number] Univers 00:00:00 00:00:00 Only Unassigned, MACKENZIE 350.1.13.10 ity of [place] [facility] 4.2.7.2.686 Kilo as [phone] [facility] [address] 2021-11-12 2021-11-12 Office MOHAN [facility] 1.2.840.114 [id number] [facility] 14:36:20 15:29:10 Visit , ITALIA AMBULATOR 350.1.13.21 College Y 0.2.7.2.[id number] [facility] 800 e 2021-11-09 2021-11-09 Outpatient R BETO [facility] [id number] [address] 13:00:00 13:00:00 DANIEL mitchell [facility] 2021-11-05 2021-11-05 Outpatient R OCTAVIO [facility] [id number] Univers 10:40:00 10:40:00 ANGELA collins [facility] 2021-11-02 2021-11-02 Outpatient Braulio MATT WON [facility] [id number] Univers 13:00:00 14:14:42 VERNELLWON SIBLEY karina [facility] 2021-11-02 2021-11-02 Office Vernell [facility] 1.2.840.114 [id number] [facility] 13:00:00 14:14:42 Visit Won [facility] 350.1.13.10 [facility] 4.2.7.2.686 Kilo as KRZYSZTOF?BLEA [phone] [address] MEDICAL OFFICE [facility] 2021-11-01 2021-11-01 Office Link, [facility] 1.2.840.114 [id number] [facility] 09:45:00 10:00:00 Visit Keerthi Dias AMBULATOR 350.1.13.21 College Y 0.2.7.2.[id number] [facility] 300 e 2021-11-01 2021-11-01 Orders Doctor LILLIANA 1.2.840.114 [id number] Univers 00:00:00 00:00:00 Only Unassigned, MACKENZIE 350.1.13.10 ity of [place] [facility] 4.2.7.2.686 Kilo as [phone] [address] 2021-10-28 2021-10-28 [facility]phone [facility] 1.2.817.078 [id number] Univers 00:00:00 00:00:00 Angela HEALTH 350.1.13.10 ity of [place] 4.2.7.2.686 Kilo as KRZYSZTOF?BLEA [id number] [address] MEDICAL OFFICE [facility] 2021-10-26 2021-10-26 [facility]phone [facility] [id number] [id number] Univers 00:00:00 00:00:00 Angela HEALTH 350.1.13.10 ity [facility] 4.2.7.2.686 Kilo as KRZYSZTOF?BLEA [phone] [address] MEDICAL OFFICE BUILDING 2021-10-25 2021-10-25 Outpatient R OCTAVIO [facility] [id number] Univers 14:40:00 15:55:58 ANGELA ity [facility] 2021-10-25 2021-10-25 Office [facility] 1.2.840.114 [id number] Univers 14:40:00 15:55:58 Visit [facility] 350.1.13.10 ity of [place] 4.2.7.2.686 Kilo as KRZYSZTOF?BLEA [phone] [address] OFFICE [facility] 2021-10-25 2021-10-25 Telephone [facility] 1.2.969.857 [id number] Univers 00:00:00 00:00:00 Angela HEALTH 350.1.13.10 ity of [place] 4.2.7.2.686 Kilo as KRZYSZTOF?BLEA [phone] [address] MEDICAL OFFICE [facility] 2021-10-25 2021-10-25 Orders Doctor LILLIANA 1.2.840.114 [id number] Univers 00:00:00 00:00:00 Only Unassigned, MACKENZIE 350.1.13.10 ity of [place] [facility] 4.2.7.2.686 Kilo as [phone] [address] 2021-10-20 2021-10-20 Telephone [facility] 1.2.992.042 [id number] Univers 00:00:00 00:00:00 Angela HEALTH 350.1.13.10 ity [facility] 4.2.7.2.686 Kilo as KRZYSZTOF?BLEA [id number] [address] MEDICAL OFFICE [facility] 2021-09-24 2021-09-24 Outpatient R OCTAVIO [facility] [id number] Univers 08:40:00 08:40:00 ANGELA ity [facility] 2021-09-24 2021-09-24 Outpatient R OCTAVIO [facility] [id number] Univers 08:30:00 08:30:00 ANGELA karina [facility] 2021-09-17 2021-09-17 Outpatient WON SALDIVAR [facility] [id number] Univers 11:00:00 11:00:00 [facility] 2021-09-13 2021-09-13 Telephone [facility] 1.2.141.520 [id number] Univers 00:00:00 00:00:00 Angela HEALTH 350.1.13.10 ity [facility] 4.2.7.2.686 Kilo as KRZYSZTOF?BLEA [phone] [address] MEDICAL OFFICE BUILDING 2021-09-13 2021-09-13 Orders Doctor LILLIANA 1.2.840.114 [id number] Univers 00:00:00 00:00:00 Only Unassigned, MACKENZIE 350.1.13.10 ity of [place] [facility] 4.2.7.2.686 Kilo as [phone] [address] 2021-09-10 2021-09-10 [facility] [id number] Univers 16:00:00 17:05:49 [facility] 2021-09-10 2021-09-10 Office [facility] 1.2.840.114 [id number] Univers 16:00:00 17:05:49 Visit [facility] 350.1.13.10 ity of [place] 4.2.7.2.686 Kilo as KRZYSZTOF?BLEA [phone] [address] MEDICAL OFFICE [facility] 2021-09-05 2021-09-05 Telephone Odilon [facility] 1.2.649.469 [id number] Univers 00:00:00 00:00:00 Chary A HEALTH 350.1.13.10 i ty of [place] 4.2.7.2.686 Kilo as KRZYSZTOF?BLEA [phone] [address] MEDICAL OFFICE [facility] 2021-09-03 2021-09-03 [employer] Lab, [place] - S[place] [facility] 1.2.840.1 14 [id number] Univers 07:45:00 08:09:03 [facility] 350.1.13.10 ity [facility] 4.2.7.2.686 Kilo as KRZYSZTOF?BLEA [phone] [address] OFFICE [facility] 2021-09-03 2021-09-03 Outpatient R [facility] [id number] Univers 07:45:00 07:45:00 [facility] 2021-09-02 2021-09-02 Telephone [facility] 1.2.054.825 [id number] Univers 00:00:00 00:00:00 Angela HEALTH 350.1.13.10 ity of [facility] 4.2.7.2.686 Kilo as KRZYSZTOF?BLEA [phone] [address] MEDICAL OFFICE [facility] 2021-08-27 2021-08-27 [employer] Lab, Ang - Db [facility] 1.2.840.1 14 [id number] Univers 15:30:00 15:45:00 Visit Octavio [facility] 350.1.13.10 ity of [place] 4.2.7.2.686 Kilo as KRZYSZTOF?BLEA [phone] [address] OFFICE [facility] 2021-08-27 2021-08-27 Outpatient R [facility] [id number] Univers 14:00:00 15:19:02 [facility] 2021-08-27 2021-08-27 Office [facility] 1.2.840.114 [id number] Univers 14:00:00 15:19:02 Visit [facility] 350.1.13.10 ity of [place] 4.2.7.2.686 Kilo as KRZYSZTOF?BLEA [phone] [address] MEDICAL OFFICE [facility] 2021-08-20 2021-08-20 [facility]ill [facility] 1.2.840.114 [id number] Univers 00:00:00 00:00:00 Chary A HEALTH 350.1.13.10 i ty of [place] 4.2.7.2.686 Kilo as KRZYSZTOF?BLEA [phone] [address] MEDICAL OFFICE [facility] 2021-07-09 2021-07-09 Outpatient [facility] [id number] Univers 16:00:00 17:29:20 CHARY ity [facility] 2021-07-09 2021-07-09 Office [facility] 1.2.840.114 [id number] Univers 16:00:00 17:29:20 Visit Chary A HEALTH 350.1.13.10 i ty of [place] 4.2.7.2.686 Kilo as KRZYSZTOF?BLEA [phone] [facility] [address] [facility] OFFICE [facility] 2021-07-09 2021-07-09 Outpatient R [facility] [id number] Univers 16:00:00 17:29:20 CHARY [facility] 2021-06-09 2021-06-09 Case Rea [facility] 1.2.840.114 [id number] Univers 00:00:00 00:00:00 Management Rania HEALTH 350.1.13.10 ity of [place] 4.2.7.2.686 Kilo as KRZYSZTOF?BLEA [phone] [address] OFFICE [facility] 2021-06-09 2021-06-09 Tapan Mccartney [facility] 1.2.840.114 [id number] Univers 00:00:00 00:00:00 (Out) Ree HEALTH 350.1.13.10 it y of [place] 4.2.7.2.686 Kilo as KRZYSZTOF?BLEA [phone] [address] OFFICE [facility] 2021-06-08 2021-06-08 Laboratory Only, Ang Db Test [facility] 1.2.8 40.114 [id number] Univers 09:15:00 09:30:00 Only Tera Ricks [facility] 350.1.13.10 ity of [place] 4.2.7.2.686 Kilo as KRZYSZTOF?BLEA [phone] [address] MEDICAL OFFICE [facility] 2021-06-08 2021-06-08 Outpatient R ANDREW [facility] [id number] Univers 09:15:00 09:15:00 TERA [facility] 2021-05-17 2021-05-17 Outpatient R JOEL [facility] [id number] Univers 13:30:00 13:30:00 karina NAYAK [facility] 2021-05-13 2021-05-13 Orders Doctor LILLIANA 1.2.840.114 [id number] [facility] 00:00:00 00:00:00 Only Unassigned, MACKENZIE 350.1.13.10 ity of [place] [facility]OSPITAL 4.2.7.2.686 Kilo as [phone] [facility] [address] 2021-05-03 2021-05-03 Office LINK, [facility] 1.2.840.114 [id number] [facility] 10:12:54 11:16:44 Visit KEERTHI AMBULATOR 350.1.13.21 College Y 0.2.7.2.686 of [id number] [facility] raimundo 300 e 2021-05-03 2021-05-03 [facility] [id number] [facility] 00:00:00 00:00:00 Colleg e of Medicin e 2021-05-03 2021-05-03 Outpatient BCM [facility] [id number] [facility] 00:00:00 00:00:00 [facility] e [facility] Medicin e 2021-05-03 2021-05-03 Telephone [facility] 1.2.704.757 [id number] [facility] 00:00:00 00:00:00 Amaya HEALTH 350.1.13.10 it y of [place] 4.2.7.2.686 Kilo as KRZYSZTOF?BLEA [phone] [address] MEDICAL OFFICE [facility] 2021-04-30 2021-04-30 Telephone [facility] 1.2.116.413 [id number] Univers 00:00:00 00:00:00 Gerardo HEALTH 350.1.13.10 it y of [place] 4.2.7.2.686 [place]ilo as KRZYSZTOF?BLEA [phone] [address] MEDICAL OFFICE [facility] 2021-04-29 2021-04-29 Nurse LILLIANA Jain 1.2.840.114 [id number] [facility] 00:00:00 00:00:00 Triage Pamela Roman M[place]ENZIE 350.1.13.10 it y of HOSPITAL 4.2.7.2.686 [place]ilo as [phone] [facility] [address] [place] 2021-04-29 2021-04-29 [facility] 1.2.840.114 [id number] Univers 00:00:00 00:00:00 Wondiful Jyotsna ALBRECHT 350.1.13.10 ity of [place].2.7.2.686 [place] [phone] Mi salvatore PANTOJA [facility] 2021-04-23 2021-04-23 Outpatient R BETO, [facility] [id number] Univers 09:00:00 09:00:00 QIANGJUN ity o f [facility] 2021-04-14 2021-04-14 Outpatient [facility] [id number] Univers 09:30:00 09:30:00 WONDIFUL ity o f [facility] 2021-04-14 2021-04-14 Outpatient R JOCE, [facility] [id number] Univers 09:30:00 09:30:00 WONDIFUL ity o f [facility] 2021-04-05 2021-04-05 Outpatient R ARIAN, [facility] [id number] Univers 10:30:00 10:30:00 JESSICA ity of [facility] 2021-04-05 2021-04-05 Orders Doctor LILLIANA 1.2.840.114 [id number] Univers 00:00:00 00:00:00 Only Unassigned, MACKENZIE 350.1.13.10 ity of [place] [facility] 4.2.7.2.686 Kilo as [phone] [address] 2021-03-22 2021-03-22 Outpatient R LYLA [facility] [id number] Univers 11:30:00 12:40:29 AMAYA ity of [facility] 2021-03-22 2021-03-22 Office [facility] 1.2.840.114 [id number] Univers 11:30:00 12:40:29 [facility] 350.1.13.10 it y of [place] 4.2.7.2.686 [place]ilo [place] KRZYSZTOF?BLEA [phone] Mi salvatore ESTRADA [address] [place] [address] MEDICAL OFFICE [facility] 2021-03-21 2021-03-21 Isa [facility] 1.2.840.114 [id number] Univers 00:00:00 00:00:00 Wondiful A HEALTH 350.1.13.10 ity of [place] 4.2.7.2.686 Kilo as PROFESSIO [phone] [address] OFFICE [facility] ONE 2021-02-22 2021-02-22 Office Eric, [facility] 1.2.840.114 [id number] Univers 14:30:00 15:00:00 Visit Jessica R Y HEALTH 350.1.13.10 ity of [place] [id number] [address] 2021-02-22 2021-02-22 Outpatient R [facility] [id number] Univers 14:30:00 14:30:00 JESSICA ity [facility] 2021-02-22 2021-02-22 Outpatient [facility] [id number] Univers 14:30:00 14:30:00 JESSICA ity [facility] 2021-01-25 2021-01-25 Refshruthi [facility] 1.2.840.114 [id number] Univers 00:00:00 00:00:00 Wondiful A HEALTH 350.1.13.10 ity of [place] 4.2.7.2.686 Kilo as PROFESSIO [phone] [address] ONE 2021-01-21 2021-01-21 Beto [facility] 1.2.840.114 [id number] Univers 00:00:00 00:00:00 Management Wondiful A HEALTH 350.1.13.10 ity of [place] 4.2.7.2.686 Kilo as KRZYSZTOF?BLEA [phone] Mi salvatore ESTRADA [address] [facility] OFFICE BUILDING 2021-01-21 2021-01-21 Beto [facility] 1.2.840.114 [id number] Univers 00:00:00 00:00:00 Management Wondiful A HEALTH 350.1.13.10 ity of [place] 4.2.7.2.686 Kilo as KRZYSZTOF?BLEA [phone] [facility] DAWKINS [address] [place] MEDICAL OFFICE [facility] 2021-01-20 2021-01-20 Outpatient R TERESITA [facility] [id number] Univers 09:25:28 23:59:00 SENDIL ity of [facility] 2021-01-20 2021-01-20 Hospital Austin Hobson [facility] 1.2.8 40.114 [id number] Univers 09:00:00 23:59:00 Encounter Ceci Lo [place] 350.1.1 3.10 ity of [place]2.7.2.[place] C[place] [phone] [address] 2021-01-15 2021-01-15 Outpatient [facility] [id number] Univers 10:10:00 10:10:00 WONDIFUL ity o f [facility] 2021-01-15 2021-01-15 Imm/Inj Vaccine, Ang Db Cbc Fam [facility] 1. 2.840.114 [id number] Univers 08:47:34 08:57:34 Visit Austin Hobson HEALTH 350.1.13.1 0 ity of [place] 4.2.7.2.686 Kilo as KRZYSZTOF?BLEA [phone] [address] OFFICE [facility] 2021-01-15 2021-01-15 [employer] Lab, Ang - Db [facility] 1.2.840.1 14 [id number] Univers 08:20:53 08:35:53 Visit Austin Hobson HEALTH 350.1.13.1 0 ity of [place] 4.2.7.2.686 Kilo as KRZYSZTOF?BLEA [phone] [facility] NATALIE [address] [place] MEDICAL OFFICE [facility] 2021-01-14 2021-01-14 Office Joce [facility] 1.2.840.114 [id number] Univers 13:02:10 13:52:29 Visit Austin Goyal HEALTH 350.1.13.10 ity of [place] 4.2.7.2.686 Kilo as KRZYSZTOF?BLEA [id number] [address] OFFICE [facility] 2021-01-14 2021-01-14 Outpatient [facility] [id number] Univers 13:00:00 13:52:29 WONDIFUL ity o f [facility] 2020-12-23 2021-01-10 Office JESSA [facility] 1.2.840.114 [id number] [facility] 15:05:24 13:24:06 Visit KEERTHI AMBULATOR 350.1.13.21 College Y 0.2.7.2.[id number] [facility] 300 e 2020-12-04 2020-12-04 Hospital [facility] 1.2.772.696 [id number] Univers 12:31:25 23:59:00 Encounter Wondiful A [place] 350.1.13.10 ity of [place].2.[place] [phone] [facility] [address] 2020-12-04 2020-12-04 Outpatient R [facility] [id number] Univers 10:15:00 12:44:29 WONDIFUL ity o f [facility] 2020-12-04 2020-12-04 Office [facility] 1.2.840.114 [id number] [facility] 10:12:12 12:44:29 Visit Wondiful A HEALTH 350.1.13.10 ity of [place] 4.2.7.2.686 Kilo as KRZYSZTOF?BLEA [id number] [address] MEDICAL OFFICE [facility] 2020-10-16 2020-10-16 Patient [facility] 1.2.840.114 [id number] Univers 00:00:00 00:00:00 Secure Msg Wondiful A Health 350.1.13.10 ity of [place] 4.2.7.2.686 [place]ilo as Krzysztof?Blea [phone] [address] Medical Office Building 2020-10-13 2020-10-13 Telephone [facility] 1.2.840.114 [id number] Univers 00:00:00 00:00:00 Wondiful A Health 350.1.13.10 ity of [place] 4.2.7.2.686 [place]ilo [place] Krzysztof?Blea [phone] [address] Medical Office Building 2020-10-08 2020-10-08 Patient Doctor LILLIANA 1.2.840.114 [id number] Univers 00:00:00 00:00:00 Secure Msg Unassigned, MACKENZIE 350.1.13.10 [facility] 4.2.7.2.686 Kilo as [phone] [address] 2020-10-08 2020-10-08 Refill [facility] 1.2.840.114 [id number] Univers 00:00:00 00:00:00 Wondiful A Health 350.1.13.10 ity of [place] 4.2.7.2.686 Kilo as Krzysztof?Blea [phone] [address] Office [facility] 2020-10-08 2020-10-08 Telephone [facility] 1.2.840.114 [id number] Univers 00:00:00 00:00:00 Wondiful A Health 350.1.13.10 ity of [place] 4.2.7.2.686 Kilo as Krzysztof?Blea [phone] [address] Medical Office [facility] 2020-10-06 2020-10-06 Outpatient R JOCE [facility] [id number] Univers 09:00:00 09:00:00 WONDIFUL ity o f [facility] 2020-10-05 2020-10-05 Office [facility] 1.2.840.114 [id number] Univers 11:08:16 12:09:41 Visit Wondiful A Health 350.1.13.10 ity of [place] 4.2.7.2.686 [place]ilo as Krzysztof?Blea [phone] [address] Medical Office [facility] 2020-10-05 2020-10-05 Outpatient R JOCE [facility] [id number] Univers 11:15:00 11:15:00 WONDIFUL ity o [facility] 2020-09-15 2020-09-15 Outpatient R JOCE [facility] [id number] Univers 14:30:00 14:30:00 WONDIFUL ity o f [facility] 2020-08-06 2020-08-06 Outpatient R BETO [facility] [id number] Univers 00:00:00 00:00:00 DANIEL collins o paula [facility] 2020-07-20 2020-07-20 [employer] Lab, Adc Fam Pob I [facility] 1.2. 840.114 [id number] Univers 10:43:24 11:03:24 Visit Daniel Pérez Health 350.1.13.10 ity of [place] 4.2.7.2.686 [place]ilo as Professio [phone] [address] 2020-07-20 2020-07-20 Office [facility] 1.2.840.114 [id number] Univers 09:55:53 10:27:33 Visit Daniel [place] 350.1.13.10 ity of [place].2.[place] Profess[place] [id number] [address] 2020-07-20 2020-07-20 Outpatient R BETO [facility] [id number] Univers 10:00:00 10:00:00 DANIEL mitchell [facility] 2020-06-02 2020-06-02 Telephone [facility] 1.2.840.114 [id number] Univers 00:00:00 00:00:00 Wondiful A Health 350.1.13.10 ity of [place] 4.2.7.2.686 [place]ilo as Professio [phone] [address] 2020-06-01 2020-06-01 Refill [facility] 1.2.840.114 [id number] Univers 00:00:00 00:00:00 Daniel [place] 350.1.13.10 ity of [place].2.[place] Profess[place] [id number] [address] 2020-05-18 2020-05-18 Orders Doctor LILLIANA 1.2.840.114 [id number] Univers 00:00:00 00:00:00 Only Unassigned, MACKENZIE 350.1.13.10 ity of [place] [facility] 4.2.7.2.686 Kilo as [phone] [facility] [address] 2020-05-04 2020-05-04 Office LINK, [facility] 1.2.840.114 [id number] [facility] 10:43:07 12:09:48 Visit KEERTHI AMBULATOR 350.1.13.21 College Y 0.2.7.2.[id number] [facility] 300 e 2020-04-29 2020-04-29 Telephone [facility] 1.2.106.894 [id number] 00:00:00 00:00:00 Qiangjun [place] 350.1.13.10 [place] 4.2.7.2.686 Professio [phone] [address] 2020-04-29 2020-04-29 Refill [facility] 1.2.840.114 [id number] 00:00:00 00:00:00 Qiangjun [place] 350.1.13.10 [place] 4.2.7.2.686 Professio [id number] [address] 2020-04-29 2020-04-29 Telephone [facility] 1.2.079.498 [id number] Univers 00:00:00 00:00:00 Qiangjun [place] 350.1.13.10 ity of [place] Profess[place] [phone] Mi dic[address] 2020-04-29 2020-04-29 Refill [facility] 1.2.840.114 [id number] 35 [facility] 00:00:00 00:00:00 Qiangjun [place] 350.1.13.10 ity of [place].2.[place] Profess[place] [phone] Mi dic[address] 2020-04-25 2020-04-25 Urgent Provider, [facility] 1.2.649.101 [id number] 10:12:47 10:32:47 Care [facility] 350.1.13.10 Care [place] 4.2.7.2.686 Professio [phone] nal 044 Office Building One 2020-04-25 2020-04-25 Urgent Provider, [facility] 1.2.840.114 [id number] Univers 10:12:47 10:32:47 Care Mine [facility] J Health 350.1.13.10 ity of [place] 4.2.7.2.686 [place]ilo as Professio [phone] [address] Office [facility] 2020-04-25 2020-04-25 Outpatient R ONEAL [facility] [id number] Univers 10:20:00 10:20:00 MINE ity o f [facility] 2020-04-15 2020-04-15 Telephone [facility] 1.2.840.114 [id number] 00:00:00 00:00:00 Wondiful A Health 350.1.13.10 [place] 4.2.7.2.686 Professio [phone] [address] 2020-04-15 2020-04-15 Telephone [facility] 1.2.840.114 [id number] Univers 00:00:00 00:00:00 Wondiful A Health 350.1.13.10 ity of [place] 4.2.7.2.686 [place]ilo as Professio [phone] [address] Office [facility] 2020-03-07 2020-03-07 Patient Tyler [facility] 1.2.840.114 [id number] 00 00:00:00 00:00:00 Outreach Ethan PRIMARY 350.1.13.10 Herbie CARE 4.2.7.2.686 PAVILLION [phone] [facility] 2020-03-07 2020-03-07 Patient [facility] 1.2.840.114 [id number] Univers 00:00:00 00:00:00 Outreach Ethan PRIMARY 350.1.13.10 i ty of [place] C[place]2.[place].2.[place] PAV[place] [id number] [address] 2020-01-16 2020-01-16 Outpatient [facility] [id number] Univers 16:30:00 16:30:00 WONDIFUL ity o f [facility] 2020-01-16 2020-01-16 Telemedici Joce [facility] 1.2.840.114 [id number] 16:09:25 16:24:25 ne Visit Jamilful A Health 350.1.13.10 [place] 4.2.7.2.686 Professio [phone] nal [facility] Office Building One 2020-01-16 2020-01-16 Telemedici Joce [facility] 1.2.840.114 [id number] [facility] 16:09:25 16:24:25 ne Visit Jamilful A Health 350.1.13.10 ity of [place] 4.2.7.2.686 Kilo as Professio [phone] Mi dical [address] Office Building One 2020-01-12 2020-01-12 Orders Doctor LILLIANA 1.2.840.114 [id number] 00:00:00 00:00:00 Only Unassigned, MACKENZIE 350.1.13.10 [place] [facility] 4.2.7.2.[phone] [facility] 2020-01-12 2020-01-12 Orders Doctor LILLIANA 1.2.840.114 [id number] Univers 00:00:00 00:00:00 Only Unassigned, MACKENZIE 350.1.13.10 ity of [place] [facility] 4.2.7.2.686 Kilo as [phone] [address] 2020-01-06 2020-01-06 Office Link, [facility] 1.2.840.114 [id number] 10:46:16 11:44:31 Visit Keerthi Dias AMBULATOR 350.1.13.21 Y 0.2.7.2.686 [phone] [facility] 2020-01-06 2020-01-06 Office Link, [facility] 1.2.840.[id number] [place] [address] 10:46:16 11:44:31 Visit Keerthi Dias AMBULATOR 350.1.13.21 College Y 0.2.7.2.[id number] [facility] 300 e 2019-12-16 2019-12-16 Case [place] [facility] 1.2.840.114 [id number] 00:00:00 00:00:00 Management Wondiful A Health 350.1.13.10 [place] 4.2.7.2.686 Professio [phone] nal [facility] Office Building One 2019-12-16 2019-12-16 Case Joce [facility] 1.2.840.114 [id number] Univers 00:00:00 00:00:00 Management Wondiful A Health 350.1.13.10 ity of [place] 4.2.7.2.686 Kilo as Professio [phone] [address] Office [facility] 2019-12-12 2019-12-12 [employer] 1, Adc Lab [facility] 1.2.840.114 [id number] 09:36:54 09:51:54 Visit [place] 350.1.13.10 [place] 4.2.7.2.686 [place] [phone] [facility] 2019-12-12 2019-12-12 [employer] 1, Adc Lab [facility] 1.2.840.114 [id number] [facility] 09:36:54 09:51:54 Visit Austin Hobson 350.1.13. 10 ity [place].2.[place] [phone] [address] 2019-12-12 2019-12-12 Outpatient R [facility] [id number] Univers 08:30:00 08:30:00 ity of [facility] 2019-12-12 2019-12-12 Telephone Joce [facility] 1.2.840.114 [id number] 00:00:00 00:00:00 [facility] 350.1.13.10 [place] 4.2.7.2.686 Professio [phone] [place] [address] [facility] [address] [facility] 2019-12-12 2019-12-12 Telephone Joce [facility] 1.2.840.114 [id number] Univers 00:00:00 00:00:00 [facility] 350.1.13.10 ity of [place] 4.2.7.2.686 [place] Professio [phone] [address] Office [facility] 2019-12-05 2019-12-05 Orders Doctor LILLIANA 1.2.840.114 [id number] 00:00:00 00:00:00 Only Unassigned, MACKENZIE 350.1.13.10 [facility] 4.2.7.2.686 [phone] [id number] 2019-12-05 2019-12-05 Orders Doctor LILLIANA 1.2.840.114 [id number] Univers 00:00:00 00:00:00 Only Unassigned, MACKENZIE 350.1.13.10 ity of [facility] 4.2.7.2.686 [place] as [phone] [address] 2019-11-14 2019-11-14 Case Joce [facility] 1.2.840.114 [id number] 00:00:00 00:00:00 Management [facility] 350.1.13.10 [place] 4.2.7.2.686 Professio [phone] [place] [address] Office Building [facility] 2019-11-14 2019-11-14 Beto Hobson [facility] 1.2.840.114 [id number] Univers 00:00:00 00:00:00 Management [facility] 350.1.13.10 ity of [place] 4.2.7.2.686 [place] Professio [phone] [address] Office [facility] 2019-11-13 2019-11-13 Beto Hobson [facility] 1.2.840.114 [id number] 00:00:00 00:00:00 Management [facility] 350.1.13.10 [place] 4.2.7.2.686 Professio [phone] [place] [address] Office [facility] 2019-11-13 2019-11-13 Beto Hobson [facility] 1.2.840.114 [id number] Univers 00:00:00 00:00:00 Management [facility] 350.1.13.10 [facility]y of [place] 4.2.7.2.686 [place] Professio [phone] [address] Office [facility] 2019-11-08 2019-11-08 [employer] Lab, Adc [facility] [place] 1.2. 840.114 [id number] Univers 11:16:17 11:26:17 Visit [facility]twan [facility]sonrayna [facility] 350.1.13.1 0 ity of [place] 4.2.7.2.686 [place] Professio [phone] [address] Office [facility] 2019-11-08 2019-11-08 Office Joce [facility] 1.2.840.114 [id number] 09:44:58 11:00:23 Visit [facility] 350.1.13.10 [place] 4.2.7.2.686 Professio [phone] [place] [address] Office [facility] 2019-11-08 2019-11-08 [facility] 1[facility]2.840.114 [id number] Univers 09:44:58 11:00:23 Visit [facility] 350.1.13.10 ity of [place] 4.2.7.2.686 [place] Professio [phone] [address] 2019-11-08 2019-11-08 [facility] [id number] Univers 08:45:00 08:45:00 WONDIFUL ity o f [facility] 2019-09-02 2019-11-04 [facility] 1.2.840.114 [id number] Univers 09:09:51 09:25:19 ne Visit [facility] [place] 350.1.13.10 it[place] [phone] [address] 2019-11-04 2019-11-04 [employer] Lab, Adc Fam Pob I [facility] 1.2. 840.114 [id number] Univers 09:02:55 09:12:55 Visit [facility] 350.1.13.1 0 ity of [place] 4.2.7.2.686 [place] Professio [phone] [address] 2019-11-04 2019-11-04 Outpatient R JOCE [facility] [id number] Univers 09:00:00 09:00:00 WONDIFUL ity o f [facility] 2019-10-30 2019-10-30 [facility] 1.2.840.114 [id number] Univers 00:00:00 00:00:00 [facility] 350.1.13.10 [place]y of [place] 4.2.7.2.686 [place] Professio [phone] Mi dical nal 044 [place] Office [facility] 2019-10-25 2019-10-25 [facility] 1.2.840.114 [id number] Univers 00:00:00 00:00:00 [facility] 350.1.13.10 [place]y of [place] 4.2.7.2.686 [place] Professio [phone] Mi dicky nal 044 [facility] 2019-10-25 2019-10-25 [facility] 1.2.840.114 [id number] Univers 00:00:00 00:00:00 [facility] 350.1.13.10 ity of [place] 4.2.7.2.686 [place] Professio [phone] [facility] 044 [facility] 2019-10-07 2019-10-07 Office Link, [facility] 1.2.840.114 [id number] 08:45:50 10:08:26 Visit Keerthi Larissa AMBULATOR 350.1.13.21 Y 0.2.7.2.686 [phone] [facility] 2019-10-07 2019-10-07 Office Link, [facility] 1.2.840.[id number] [place] [address] 08:45:50 10:08:26 Visit Keerthi Larissa AMBULATOR 350.1.13.21 College Y 0.2.7.2.[phone] [facility] 300 e 2019-10-07 2019-10-07 Orders Doctor LILLIANA 1.2.840.114 [id number] Univers 00:00:00 00:00:00 Only Unassigned, MACKENZIE 350.1.13.10 ity of [place] [facility] 4.2.7.2.686 Kilo as [phone] [facility] 009 [place] 2019-09-30 2019-09-30 Office Beto, [facility] 1.2.840.114 [id number] Univers 09:15:37 09:55:50 Visit Daniel Albrecht 350.1.13.10 it[place] [phone] Mi dical nal 059 [facility] 2019-09-30 2019-09-30 Outpatient R BETO, [facility] [id number] Univers 09:40:00 09:40:00 SLAVANGMILI ity o f [facility] 2019-09-02 2019-09-02 Outpatient R JOCE, [facility] [id number] Univers 08:45:00 08:45:00 WONDIFUL ity o f [facility] 2019-08-30 2019-08-30 Telephone OdilonLILLIANA 1.2.356.857 [id number] Univers 00:00:00 00:00:00 Chary MANN 350.1.13.10 i ty [facility] 4.2.7.2.686 [place] as [phone] [address] 2019-08-29 2019-08-29 Laboratory Lab, [facility] Fam Pob I [facility] 1.. 840.114 [id number] Univers 11:32:55 11:52:55 Only Anene, [facility] 350.1.13.10 ity of [place] 4.2.7.2.686 [place] Professio [phone] Mi dicky nal 044 [place] Office [facility] 2019-08-29 2019-08-29 Outpatient R SILVINAESME, [facility] [id number] Univers 11:40:00 11:40:00 AMAYA ity of [facility] 2019-08-29 2019-08-29 Urgent Lab, [facility] 1..840.114 [id number] 11:00:00 11:20:00 Care Fam Pob I Health 350.1.13.10 [place] 4.2.7.2.686 Professio [phone] nal [facility] Office [facility] 2019-08-29 2019-08-29 Urgent Lab, [facility] Fam Pob I [facility] 1.2.840 .114 [id number] Univers 11:00:00 11:20:00 Care Aneesme, [facility] 350.1.13.10 ity of [place] 4.2.7.2.686 [place] Professio [phone] Mi dical nal 044 [facility] 2019-08-29 2019-08-29 Outpatient R [facility] [id number] Univers 11:00:00 11:00:00 ity of [facility] 2019-08-29 2019-08-29 Letter Doctor LILLIANA 1.2.840.114 [id number] Univers 00:00:00 00:00:00 (Out) Unassigned, MACKENZIE 350.1.13.10 ity of [facility] 4.2.7.2.686 [place]ilo as [phone] [address] 2019-08-20 2019-08-20 [facility] 1.2.840.114 [id number] Univers 00:00:00 00:00:00 [facility] 350.1.13.10 [place] of [place] 4.2.7.2.686 [place] Professio [phone] [address] 2019-07-30 2019-07-30 Office Kedar [facility] Encounter / Legacy 00:00:00 00:00:00 Visit Renata [id number] Com natalee [id number] [facility] 2019-07-11 2019-07-11 [facility] [id number] Univers 09:15:00 09:15:00 WONDIFUL ity o f [facility] 2019-07-03 2019-07-03 Telephone [facility] 1.2.840.114 [id number] Univers 00:00:00 00:00:00 [facility] [place] 350.1.13.10 [place] [phone] Mi dic[address] 2019-07-01 2019-07-01 Office Wilfredo [facility] Encounter/ Legacy 00:00:00 00:00:00 Visit Mirella [id number] Katiuska De La Cruz 256528 [facility] 2019-07-01 2019-07-01 Office Wilfredo [facility] Encounter/ Legacy 00:00:00 00:00:00 Visit Mirella [id number] Katiuska De La Cruz 195585 [facility] 2019-07-01 2019-07-01 Office Mirella Villalobso [facility] Encounter/ Legacy 00:00:00 00:00:00 Visit MillerDominiqueShy [id number] 014[facility] 2019-07-01 2019-07-01 Telephone Joce [facility] 1..840.114 [id number] Univers 00:00:00 00:00:00 [facility] 350.1.13.10 [place] of [place] 4.2.7.2.686 [place] Professio [phone] Mi dic[address] Office [facility] 2019-06-25 2019-06-25 Office Wilfredo, [facility] Encounter/ Legacy 00:00:00 00:00:00 Visit Mirella [id number] Com natalee Jono 637162 [facility] 2019-06-25 2019-06-25 Office Wilfredo, [facility] Encounter/ Legacy 00:00:00 00:00:00 Visit Mirella [id number] Com natalee Jono 455581 [facility] 2019-06-25 2019-06-25 Office Wilfredo, [facility] Encounter/ Legacy 00:00:00 00:00:00 Visit Mirella [id number] Com natalee Jono 194741 [facility] 2019-06-25 2019-06-25 Office Wilfredo, Mirella Jono [facility] Encounter/ Legacy 00:00:00 00:00:00 Visit Renata Thacker [id number] [facility] 668640 [facility] 2019-05-14 2019-05-14 [facility] 1.2.840.114 [id number] Univers 00:00:00 00:00:00 [facility] 350.1.13.10 [place] of [place] 4.2.7.2.686 [place] Professio [phone] [address] 2019-04-05 2019-04-05 Outpatient R JOCE [facility] [id number] Univers 13:15:00 14:32:32 WONDIFUL ity o f [facility] 2019-04-05 2019-04-05 Office Joce [facility] 1.2.840.114 [id number] Univers 13:11:19 14:32:32 Visit [facility] 350.1.13.10 it[place] of [place] 4.2.7.2.686 [place] Professio [phone] Mi dical nal 044 [place] Office [facility] 2019-04-04 2019-04-04 Telephone [facility] 1.2.924.044 [id number] Univers 00:00:00 00:00:00 Daniel Albrecht 350.1.13.10 [place] [phone] Mi dical nal 059 [facility] 2019-04-01 2019-04-01 [employer] 2, Adc Lab [facility] 1.2.840.114 [id number] Univers 11:11:10 11:26:10 Visit Daniel Pérez [place] 350.1.13.10 it[place].2.[place] [phone] Mi dical nal 353 [facility] 2019-04-01 2019-04-01 Outpatient R BETO [facility] [id number] Univers 11:15:00 11:15:00 DANIEL collins o f [facility] 2019-04-01 2019-04-01 Office [facility] 1.2.840.114 [id number] Univers 09:49:17 11:01:30 Visit Daniel Albrecht 350.1.13.10 it[place] of [place].2.[place] [phone] Mi dicky nal 059 [facility] 2019-04-01 2019-04-01 Orders Doctor LILLIANA 1.2.840.114 [id number] Univers 00:00:00 00:00:00 Only Unassigned, MACKENZIE 350.1.13.10 ity of [place] [facility] 4.2.7.2.686 [place] as [phone] [address] 2018-08-03 2018-08-03 Outpatient R JOCE [facility] [id number] Univers 12:45:00 12:45:00 WONDIFUL ity o f [facility] Results Test Description Test Time Test Comments Results Result Comments Source N-TERMINAL PRO-BNP 2022-06-11 15:02:10 Test Item Value Reference Range Interpretation Comme nts NT-proBNP (test code = 4599492118) 782 pg/mL <=450 H ALEXIS (test code = ALEXIS) Biotin has been reported to cause a negative bias, interpret results relative to patient's use of biotin. Lab Interpretation (test code = 95910-2) Abnormal [facility] METABOLIC PANEL (NA, K, CL, CO2, GLUCOSE, BUN, CREATININE, CA)2022-06-11 14:53:52 Test Item Value Reference Range Interpretation Comments NA (test code = 139 mmol/L 135-145 2064120146) K (test code = 4.5 mmol/L 3.5-5.0 5168689607) CL (test code = 103 mmol/L 98-108 8295212681) CO2 TOTAL (test code = 30 mmol/L 23-31 8774690948) AGAP (test code = 6 2-16 8472163986) BUN (test code = 17 mg/dL 7-23 7479821211) GLUCOSE (test code = 134 mg/dL 70-110 H 1814359399) CREATININE (test code = 0.57 mg/dL 0.50-1.04 5011547032) CALCIUM (test code = 9.0 mg/dL 8.6-10.6 3106900925) eGFR (test code = 100.6 mL/min/1.73m2 2375070919) ALEXIS (test code = ALEXIS) Association of [...] tests). Lab Interpretation Abnormal (test code = 46719-4) [facility] [id number] 11:00:26 Test Item Value Reference Range Interpretation Comments POC-GLUCOSE METER 139 mg/dL 70-110 H : TESTED A T [facility] 6720 (BEAKER) (test code = [facility], 1538) 56444: Bi Tri Operator/Techni socrates ID = [id number] for Co ok, Sridevi POCT-GLUCOSE [id number] 08:28:34 Test Item Value Reference Range Interpretation Comments POC-GLUCOSE METER 147 mg/dL 70-110 H : TESTED A T [facility] 6720 (BEAKER) (test code = [facility], 1538) 44392: Bi Tri Operator/Techni socrtaes ID = [id number] for [place], Sridevi BASIC METABOLIC [id number] 05:30:33 Test Item Value Reference Range Interpretation [...] not appl icable for dialysis patien ts Bi Tri Operator ID - TERRELL [id number] 05:30:33 Test Item Value Reference Range Interpretation Comments MAGNESIUM (BEAKER) (test code = 2.1 mg/dL 1.6-2.6 627) Bi Tri Operator ID - TERRELL GCBC W/PLT COUNT & AUTO [id number] 05:08:16 Test Item Value Reference Range Interpretation [...] PERCENT (BEAKER) (test code = 2801) POCT-GLUCOSE [id number] 22:18:08 Test Item Value Reference Range Interpretation Comments POC-GLUCOSE METER 150 mg/dL 70-110 H : Notified RN/MD: ([facility]) (test code = TESTED AT [facility] 6720 153) [facility], 72358: Bi Tri Operator/Techni socrates ID = [id number] for HERNÁN SMALLWOOD POCT-GLUCOSE [id number] 18:35:11 Test Item Value Reference Range Interpretation Comments POC-GLUCOSE METER 153 mg/dL 70-110 H : [facility] ([facility]) (test code [facility], = 1538) 13285: Bi Tri Operator/Techni socrates ID = [id number] for LATT ODETTE - CARA, BRODERICK POCT-GLUCOSE [id number] 12:18:53 Test Item Value Reference Range Interpretation Comments POC-GLUCOSE METER 149 mg/dL 70-110 H : [facility] T [facility] 6720 [facility] (test code [facility], = 1538) 03430: Bi Tri Operator/Techni socrates ID = [id number] for LATT IMORE - CARA, BRODERICK POCT-GLUCOSE [id number] 09:02:22 Test Item Value Reference Range Interpretation Comments POC-GLUCOSE METER 138 mg/dL 70-110 H : TESTED A T [facility] 6720 (BEAKER) (test code [place], = 1538) 60270: Bi Tri Operator/Techni socrates ID = [id number] for BRODERICK VEE BASIC METABOLIC [id number] 06:05:05 Test Item Value Reference Range Interpretation [...] not appl icable for dialysis patien ts Bi Tri Operator ID - [id number] 06:05:05 Test Item Value Reference Range Interpretation Comments MAGNESIUM (BEAKER) (test code = 2.1 mg/dL 1.6-2.6 627) Bi Tri Operator ID - [id number] 06:05:05 Test Item Value Reference Range Interpretation Comments PHOSPHORUS (BEAKER) (test code = 4.8 mg/dL 2.3-4.7 H 604) Bi Tri Operator ID - MARCOCBC W/PLT COUNT & AUTO [id number] 05:46:55 Test Item Value Reference Range Interpretation [...] PERCENT (BEAKER) (test code = 2801) POCT-GLUCOSE [id number] 20:25:43 Test Item Value Reference Range Interpretation Comments POC-GLUCOSE METER 153 mg/dL 70-110 H : TESTED A T [facility] 6720 (BEAKER) (test [facility] = [facility] 1538[facility] 41248: Bi Tri Operator/Techni socrates ID = [id number] for Felicia Watkins POCT-GLUCOSE [id number] 18:10:56 Test Item Value Reference Range Interpretation Comments POC-GLUCOSE METER 162 mg/dL 70-110 H : TESTED A T [facility] 6720 (BEAKER) (test code [facility], = 1538) 53958: Bi Tri Operator/Techni socrates ID = [id number] for LATT IMORE - CARA, BRODERICK POCT-GLUCOSE [id number] 13:16:14 Test Item Value Reference Range Interpretation Comments POC-GLUCOSE METER 133 mg/dL 70-110 H : TESTED A T [facility] 6720 (BEAKER) (test code [facility], = 1538) 91839: Bi Tri Operator/Techni socrates ID = [id number] for LATT IMORE - CARA, BRODERICK POCT-GLUCOSE [id number] 08:50:00 Test Item Value Reference Range Interpretation Comments POC-GLUCOSE METER 122 mg/dL 70-110 H : TESTED A T [facility] 6720 (BEAKER) (test code [facility], = 1538) 75956: Bi Tri Operator/Techni socrates ID = [id number] for LATT IMORE - CARA, BRODERICK CBC W/PLT COUNT & AUTO [id number] 05:50:43 Test Item Value Reference Range Interpretation [...] 0.00-1.00 PERCENT (BEAKER) (test code = 2801) [id number] 05:40:36 Test Item Value Reference Range Interpretation Comments PHOSPHORUS (BEAKER) 3.8 mg/dL 2.3-4.7 Specimen moderately (test code = 604) hemolyzed Bi Tri Operator ID - AAHAMIDBASIC METABOLIC [id number] 05:40:36 Test Item Value Reference Range Interpretation [...] 30-44 G4 Severl y decreased 15-29 G5 Kidne y failure <15Reported eGF R is based on the CKD-EPI 2020 equation that d oes not use a race coefficientEsti mated GFR is not as accur ate as Creatinine Dominique cassandra in predicting glom erular filtration rate . Estimated GFR is not appl icable for dialysis patien ts Bi Tri Operator ID - [id number] 05:40:35 Test Item Value Reference Range Interpretation Comments MAGNESIUM (BEAKER) 2.2 mg/dL 1.6-2.6 Specimen moderately (test code = 627) hemolyzed Bi Tri Operator ID - AAHAMIDPOCT-GLUCOSE [id number] 00:20:31 Test Item Value Reference Range Interpretation Comments POC-GLUCOSE METER 136 mg/dL 70-110 H : TESTED A T [facility] 6720 (BEAKER) (test code = KAREN [place], 1538) 45891: Bi Tri Operator/Techni socrates ID = [id number] for Zev akers (contract) Francisco iliana POCT-GLUCOSE [id number] 16:54:24 Test Item Value Reference Range Interpretation Comments POC-GLUCOSE METER 160 mg/dL 70-110 H : TESTED A T [facility] 6720 (BEAKER) (test code = KAREN Ramsey [place], 1538) 52438: Bi Tri Operator/Techni socrates ID = [id number] for Sridevi Flores POCT-GLUCOSE [id number] 15:00:16 Test Item Value Reference Range Interpretation Comments POC-GLUCOSE METER 169 mg/dL 70-110 H : [facility] 67[facility] (BEAKER) (test code = KAREN Ramsye [facility], 1538) 73900: Bi Tri Operator/Techni socrates ID = [id number] for Iam macias (contract), Roberto francisca HEMOGLOBIN [id number] 08:42:39 Test Item Value Reference Range Interpretation [...] 5.7- 6.4% indicates increased risk for diabetes (prediabetes)."Bi Tri Operator ID - ADM [id number] 04:27:27 Test Item Value Reference Range Interpretation Comments MAGNESIUM (BEAKER) 2.1 mg/dL 1.6-2.6 Specimen slightly (test code = 627) hemolyzed Bi Tri Operator ID - [id number] 04:27:27 Test Item Value Reference Range Interpretation Comments PHOSPHORUS (BEAKER) 3.0 mg/dL 2.3-4.7 Specimen slightly (test code = 604) hemolyzed Bi Tri Operator ID - MARCOBASIC METABOLIC [id number] 04:27:27 Test Item Value Reference Range Interpretation [...] not appl icable for dialysis patien ts Bi Tri Operator ID - MARCOCBC W/PLT COUNT & AUTO [id number] 04:02:29 Test Item Value Reference Range Interpretation [...] PERCENT (BEAKER) (test code = 2801) POCT-GLUCOSE [id number] 00:54:42 Test Item Value Reference Range Interpretation Comments POC-GLUCOSE METER 196 mg/dL 70-110 H : TESTED A T [facility] 6720 (BEAKER) (test code = [facility], 1538) 83258: Bi Tri Operator/Techni socrates ID = [id number] for JAY BAILEY HIGH SENSITIVITY TROPONIN [id number] 19:05:12 Test Item Value Reference Range Interpretation Comments HIGH SENSITIVITY TROPONIN I (test 43 pg/ml <=17 H code = 9856692) Bi Tri Operator ID - BSThe ASSOCIATE PROFESSOR OF MEDICINE STAT High Sensitivity Troponin-I results should be used in conjunctionwith other diagnostic information such as ECG, clinical observations and information, and patient symptoms to aid in the diagnosis of FL.POCT-GLUCOSE [id number] 17:15:39 Test Item Value Reference Range Interpretation Comments POC-GLUCOSE METER 267 mg/dL 70-110 H : TESTED A T [facility] 6720 (BEAKER) (test code = [facility], 1538) 75872: Bi Tri Operator/Techni socrates ID = [id number] for Co Sridevi mccullough POCT-GLUCOSE [id number] 12:13:16 Test Item Value Reference Range Interpretation Comments POC-GLUCOSE METER 257 mg/dL 70-110 H : Notified RN/MD: (AJIT) (test code = TESTED AT [place] [address] 1538) [facility], [address]: Bi Tri Operator/Techni socrates ID = [id number] for LL OYD, TIKEYA TSH/FREE T4 IF [id number] 12:08:26 Test Item Value Reference Range Interpretation Comments THYROID STIMULATING HORMONE 0.911 uIU/mL 0.350-4.940 (BEAKER) (test code = 772) Bi Tri Operator ID - MMHIGH SENSITIVITY TROPONIN [id number] 11:54:08 Test Item Value Reference Range Interpretation Comments HIGH SENSITIVITY TROPONIN I (test 68 pg/ml <=17 H code = 5169252) Bi Tri Operator ID - MMThe ASSOCIATE PROFESSOR OF MEDICINE STAT High Sensitivity Troponin-I results should be used in conjunctionwith other diagnostic information such as ECG, clinical observations and information, and patient symptoms to aid in the diagnosis of FL.CBC W/PLT COUNT & AUTO [id number] 11:19:14 Test Item Value Reference Range Interpretation [...] PERCENT (BEAKER) (test code = 2801) RESPIRATORY [id number] 11:14:11 Test Item Value Reference Range Interpretation [...] SEVERE ACUTE RESPIRATORY Not detected Not detected, [id number] Equivocal (test code = 5658060) BORDETELLA PARAPERTUSSIS Not detected Not detected, (BKR) (test code = 8121718) Equivocal Other viruses and bacteria not targeted by this PCR panel cannot be excluded; therefore clinical correlation and follow up of serology, culture results, and other molecular studies is required. The results are not intended to be used as the sole means for clinical diagnosis or patient management decisions. This sample was tested at the [facility] Molecular Diagnostics Laboratory using the X[employer] Global NetworksArray Respiratory Panel. It is FDA cleared and has been verified and approved by the [facility] Molecular [facility] for clinical use on nasopharyngeal swab specimens.The performance of the FilmArrayRP has not been established in individuals who received influenza vaccine. Recent administration of a nasal influenza vaccine may cause false positive results for Influenza A and/orInfluenza B.[id number] 10:49:18 Test Item Value Reference Range Interpretation Comments PROCALCITONIN (BEAKER) (test code = < ng/mL <0.05 3036) SEPSIS RISK (ng/mL)Low: 0.05-0.50Intermediate: 0.51-2.00High: >=2.01HIGH SENSITIVITY TROPONIN [id number] 10:36:58 Test Item Value Reference Range Interpretation Comments HIGH SENSITIVITY TROPONIN I (test 69 pg/ml <=17 H code = 6973821) Bi Tri Operator ID - MMThe ASSOCIATE PROFESSOR OF MEDICINE STAT High Sensitivity Troponin-I results should be used in conjunctionwith other diagnostic information such as ECG, clinical observations and information, and patient symptoms to aid in the diagnosis of FL.B-TYPE NATRIURETIC FACTOR (BNP)2022-05-28 10:36:39 Test Item Value Reference Range Interpretation Comments B-TYPE NATRIURETIC PEPTIDE (BEAKER) 367 pg/mL 0-100 H (test code = 700) Bi Tri Operator ID - [id number] 09:16:13 Test Item Value Reference Range Interpretation Comments PHOSPHORUS (BEAKER) (test code = 3.0 mg/dL 2.3-4.7 604) Bi Tri Operator ID - MMCOMPREHENSIVE METABOLIC [id number] 09:16:12 Test Item Value Reference Range Interpretation [...] = 353) ALT (SGPT) 41 U/L 6-55 (LEOAKER) (test code = 347) EGFR (LEOAKER) 84 Interpretatio n of eGFR (test code = 1092) mL/min/1.[address] age Description sq m Result G1 Isabel l or high >=90 G2 Mildly decreased 60-89 G3a Mildl y to moderately 45-5 9 G3b Moderately to s everely 30-44 G4 Severl y decreased 15-29 G5 Kidne y failure <15Reported eGF R is based on the CKD-EPI 2020 equation that d oes not use a race coefficientEsti mated GFR is not as accur ate as Creatinine Dominique cassandra in predicting glom erular filtration rate . Estimated GFR is not appl icable for dialysis patien ts Bi Tri Operator ID - [id number] 09:16:12 Test Item Value Reference Range Interpretation Comments MAGNESIUM (AJIT) (test code = 2.0 mg/dL 1.6-2.6 627) Bi Tri Operator ID - MMRAD, CHEST, 1 VIEW, NON [id number] 09:03:00Reason for exam:- >shortness of breathShould this be performed at the bedside?->Yes [facility] 1935 Sex: FFINAL [...] MDReport Verified Date/Time: 05/28/2022 09:03:39 LACTIC ACID, [id number] 08:50:45 Test Item Value Reference Range Interpretation Comments LACTATE BLOOD VENOUS 3.84 mmol/L 0.50-2.00 H Specime n moderately (2) (BEAKER) (test hemolyzed code = 2872) Bi Tri Operator ID - [id number] 08:47:24 Test Item Value Reference Range Interpretation Comments FIBRINOGEN LEVEL (BEAKER) (test 207 mg/dl 225-434 L code = 658) PROTHROMBIN TIME/[id number] 08:47:03 Test Item Value Reference Range Interpretation Comments PROTIME (BEAKER) (test code = 14.1 seconds 11.9-14.2 759) INR (BEAKER) (test code = 370) 1.11 <=5.90 RECOMMENDED COUMADIN/WARFARIN INR THERAPY RANGESSTANDARD DOSE: 2.0 - 3.0 Includes: PROPHYLAXIS for venous thrombosis, systemic embolization; TREATMENT for venous thrombosis and/or pulmonary embolus.HIGH RISK: Target INR is 2.5-3.5 for patients with mechanical heart valves.BLOOD GAS, [id number] 08:43:53 Test Item Value Reference Range Interpretation [...] (test code = 1819) 40.0 CBC WITH [id number] 00:09:18 Test Item Value Reference Range Interpretation [...] RDW-SD (test code = 45.1 fL 39.0-49.9 48112-0) RDW-CV (test code = 15.3 % 12.0-15.5 788-0) PLT (test code = See_Comment [Automated 777-3) message] The sy stem which generated this result transmitted reference range : 166 - 358 10*3/ ?L. The reference r nanci was not used to interpret this result as normal/abnormal . MPV (test code = 11.4 fL 9.5-12.9 68117-5) NRBC/100 WBC (test See_Comment [Automat ed code = [id number]) message] The system which generated this result transmitted reference range : 0.0 - 10.0 /100 WBCs. The refer ence range was not u sed to interpret th is result as normal/abnormal . NRBC x10^3 (test code See_Comment [Auto mated = [id number]) message] The s ystem which generated this result transmitted reference range : 10*3/?L. The reference range was not used to interpret this result as normal/abnormal . GRAN MAT (NEUT) % 57.0 % (test code = 770-8) IMM GRAN % (test code 0.30 % = 8038670466) LYMPH % (test code = 32.1 % 736-9) MONO % (test code = 7.8 % 5905-5) EOS % (test code = 2.5 % 713-8) BASO % (test code = 0.3 % 706-2) GRAN MAT x10^3(ANC) 4.26 10*3/uL 1.88-7.09 (test code = 7242805916) IMM GRAN x10^3 (test 0.00-0.06 code = 9490192927) LYMPH x10^3 (test code 2.40 10*3/uL 1.32-3.29 = 731-0) MONO x10^3 (test code 0.58 10*3/uL 0.33-0.92 = 742-7) EOS x10^3 (test code = 0.19 10*3/uL 0.03-0.39 711-2) BASO x10^3 (test code 0.01-0.07 = 704-7) Lab Interpretation Abnormal (test code = 45945-5) [facility] WITH [id number] 00:09:18 Test Item Value Reference Range Interpretation Comments WBC (test code = 7.47 See_Comment [Automated 8307-2) message] The sy stem which generated this result transmitted reference range : 4.30 - 11.10 10*3/?L. The reference range was not used to interpret this result as normal/abnormal . RBC (test code = 4.42 See_Comment [Automated 906-8) message] The sy stem which generated this [...] RDW-SD (test code = 45.1 fL 39.0-49.9 01578-2) RDW-CV (test code = 15.3 % 12.0-15.5 788-0) PLT (test code = 332 See_Comment [Automated 777-3) message] The sy stem which generated this result transmitted reference range : 166 - 358 10*3/ ?L. The reference r nanci was not used to interpret this result as normal/abnormal . MPV (test code = 11.4 fL 9.5-12.9 58597-9) NRBC/100 WBC (test 0.0 See_Comment [Automat ed code = 3983971218) message] The system which generated this result transmitted reference range : 0.0 - 10.0 /100 WBCs. The refer ence range was not u sed to interpret th is result as normal/abnormal . NRBC x10^3 (test code See_Comment [Auto mated = 5534460625) message] The s ystem which generated this result transmitted reference range : 10*3/?L. The reference range was not used to interpret this result as normal/abnormal . GRAN MAT (NEUT) % 57.0 % (test code = 770-8) IMM GRAN % (test code 0.30 % = 3283842722) LYMPH % (test code = 32.1 % 736-9) MONO % (test code = 7.8 % 5905-5) EOS % (test code = 2.5 % 713-8) BASO % (test code = 0.3 % 706-2) GRAN MAT x10^3(ANC) 4.26 10*3/uL 1.88-7.09 (test code = 1458369148) IMM GRAN x10^3 (test 0.00-0.06 code = 2050708683) LYMPH x10^3 (test code 2.40 10*3/uL 1.32-3.29 = 731-0) MONO x10^3 (test code 0.58 10*3/uL 0.33-0.92 = 742-7) EOS x10^3 (test code = 0.19 10*3/uL 0.03-0.39 711-2) BASO x10^3 (test code 0.01-0.07 = 704-7) Lab Interpretation Abnormal (test code = 32334-4) [facility] WITH [id number] 00:09:18 Test Item Value Reference Range Interpretation Comments WBC (test code = 7.47 See_Comment [Automated 3890-2) message] The sy stem which generated this [...] RDW-SD (test code = 45.1 fL 39.0-49.9 22739-6) RDW-CV (test code = 15.3 % 12.0-15.5 788-0) PLT (test code = 332 See_Comment [Automated 777-3) message] The sy stem which generated this result transmitted reference range : 166 - 358 10*3/ ?L. The reference r nanci was not used to interpret this result as normal/abnormal . MPV (test code = 11.4 fL 9.5-12.9 24642-9) NRBC/100 WBC (test 0.0 See_Comment [Automat ed code = 6704547196) message] The system which generated this result transmitted reference range : 0.0 - 10.0 /100 WBCs. The refer ence range was not u sed to interpret th is result as normal/abnormal . NRBC x10^3 (test code See_Comment [Auto mated = 7046193294) message] The s ystem which generated this result transmitted reference range : 10*3/?L. The reference range was not used to interpret this result as normal/abnormal . GRAN MAT (NEUT) % 57.0 % (test code = 770-8) IMM GRAN % (test code 0.30 % = 5720283228) LYMPH % (test code = 32.1 % 736-9) MONO % (test code = 7.8 % 5905-5) EOS % (test code = 2.5 % 713-8) BASO % (test code = 0.3 % 706-2) GRAN MAT x10^3(ANC) 4.26 10*3/uL 1.88-7.09 (test code = 9650644184) IMM GRAN x10^3 (test 0.00-0.06 code = 6854332138) LYMPH x10^3 (test code 2.40 10*3/uL 1.32-3.29 = 731-0) MONO x10^3 (test code 0.58 10*3/uL 0.33-0.92 = 742-7) EOS x10^3 (test code = 0.19 10*3/uL 0.03-0.39 711-2) BASO x10^3 (test code 0.01-0.07 = 704-7) Lab Interpretation Abnormal (test code = 18214-4) [facility] [id number] 09:29:42 Test Item Value Reference Range Interpretation Comments THYROID STIMULATING See_Comment Normal TSH level HORMONE (test code = [place] [address]-6) clinically stab le patient without hypothalamic-pi tuitary-th yroid axis diso rders and no apparent thy roid dysfunction. No reflex testing require d. Unless Otherwise Indic ated, All Testing Perform ed At: Clinical Pathol ogy [employer], [address] [place] [address] [place] [address] Laboratory Dire ctor: Breonna Ball. CLIA Number [id number] Cap Accreditation N o. [id number] [Autom ated message] The sy stem which generated this result transmitted ref erence range: 0.400 - 4.100 UIU/ML. The ref erence range was not u sed to interpret this result as normal/abnormal . [facility] [id number] 08:36:24 Test Item Value Reference Range Interpretation [...] All Testing Performed At: C linical Pathology [facility], [address] [place] [address] Director: Tani Vazquez M.D. IA Number [id number] Cap Accreditation [place] o. [id number] Lab Interpretation Abnormal (test code = 96425-2) [facility] [id number] 08:11:36 Test Item Value Reference Range Interpretation Comments GLUCOSE (test code = See_Comment H [Autom ated message] 1185-7) The system [employer] generated this result transmitted ref erence range: [...] L [Au tomated message] 2160-0) The system [employer] generated this result transmitted ref erence range: 0.60 - 1 .30 MG/DL. The refe rence range was not u sed to interpret this result as normal/abnor mal. EGFR (test code = See_Comment [Automate d message] 39462-5) The system [facility] generated this result transmitted ref erence range: >60 ML/MIN/1.73. Th e reference range was not used to int erpret this result as normal/abnormal . BUN/CREAT RATIO (test See_Comment [Auto mated message] code = 3097-3) The system [facility] generated this result transmitted ref erence range: 6 - 28 R ATIO. The reference r nanci was not used to interpret this result as normal/abnor mal. SODIUM (test code = See_Comment [Automa kendrick message] 2951-2) The system [facility] generated this result transmitted ref erence range: 133 - 14 6 MEQ/L. The refe rence range was not u sed to interpret this result as normal/abnor mal. POTASSIUM (test code = See_Comment [Aut omated message] 0833-3) The system [facility] generated this result transmitted ref erence range: 3.5 - 5. 4 MEQ/L. The refe rence range was not u sed to interpret this result as normal/abnor mal. CHLORIDE (test code = See_Comment [Auto mated message] 8825-0) The system [facility] generated this result transmitted ref erence range: 95 - 107 MEQ/L. The reference r nanci was not used to interpret this result as normal/abnor mal. CO2 (test code = See_Comment [Automated message] 1962-8) The system [facility] generated this result transmitted ref erence range: 19 - 31 MEQ/L. The reference r nanci was not used to interpret this result as normal/abnor mal. CALCIUM (test code = See_Comment [Autom ated message] 78623-0) The system [facility] generated this result transmitted ref erence range: 8.5 - 10 .5 MG/DL. The refe rence range was not u sed to interpret this result as normal/abnor mal. PROTEIN TOTAL (test See_Comment [Automa kendrick message] code = 2885-2) The system [facility] generated this result transmitted ref erence range: 6.1 - 8. 3 G/DL. The reference r nanci was not used to interpret this result as normal/abnor mal. ALBUMIN (test code = See_Comment [Autom ated message] 56006-6) The system [facility] generated this result transmitted ref erence range: 3.5 - 5. 2 G/DL. The reference r nanci was not used to interpret this result as normal/abnor mal. GLOBULINS, SERUM, TOTAL See_Comment [Au tomated message] (test code = 57900-3) The sy stem which generated this result transmitted ref erence range: 1.9 - 3. 7 G/DL. The reference r nanci was not used to interpret this result as normal/abnor mal. A/G RATIO (test code = See_Comment [Aut omated message] 1759-0) The system [facility] generated this result transmitted ref erence range: 1.0 - 2. 6 RATIO. The refe rence range was not u sed to interpret this result as normal/abnor mal. BILIRUBIN TOTAL (test See_Comment [Auto mated message] code = 1975-2) The system [facility] generated this result transmitted ref erence range: <=1.2 MG /DL. The reference r nanci was not used to interpret this result as normal/abnor mal. ALKALINE PHOSPHATASE 119 U/L 40-142 (test code = 6768-6) AST (SGOT) (test code = 21 U/L 9-40 1920-8) ALT (SGPT) (test code = 17 U/L 5-40 Un less Otherwise 1744-2) Indicated, All Testing Performed At: [facility], [address] [place] [address] Laborator y Director: Tani Vazquez M.D. CLIA Number [id number] Cap Accreditation [place] o. [id number] Lab Interpretation Abnormal (test code = 38054-3) [facility] W/AUTO DIFF WITH [id number] 07:12:50 Test Item Value Reference Range Interpretation Comments WHITE BLOOD CELL COUNT See_Comment [Aut omated message] (test code = 86443-7) The sy stem which generated this result transmitted ref erence range: 3.5 - 11 .0 K/UL. The refer ence range was not u sed to interpret this result as normal/abnor mal. RED BLOOD CELL COUNT See_Comment [Autom ated message] (test code = 09368-3) The sy stem which generated this result [...] HEMATOCRIT (test code = 38.5 % 34.0-45.0 95444-6) MEAN CORPUSCULAR VOLUME 84.4 fL 80.0-99.0 (test code = 76470-3) MEAN CORPUSCULAR 28.1 PG 25.0-33.0 HEMOGLOBIN (test code = 03046-0) MEAN CORPUSCULAR See_Comment [Automated message] HEMOGLOBIN CONC (test The sy stem which code = 26389-9) generated th is result transmitted ref erence range: 31.0 - 3 6.0 G/DL. The refer ence range was not u sed to interpret this result as normal/abnor mal. RED CELL DISTRIBUTION 13.0 % 11.5-15.0 WIDTH (test code = 00882-8) NEUTROPHILS % (test code 60.3 % = 88151-6) LYMPHOCYTES % (test code 29.6 % = 13924-3) MONOCYTES % (test code = 6.9 % 70704-0) EOSINOPHILS % (test code 2.7 % = 17172-4) BASOPHILS % (test code = 0.4 % 70560-6) IMMATURE GRANULOCYTES 0.1 % (test code = 05022-4) NUCLEATED RBC'S See_Comment Unless Othe rwise MYELOPEROX STAIN (test Indic ated, All Testing code = 66773-3) Performed At : [facility], [address] [place] [address] Laborator y Director: Tani Vazquez M.D. CLIA Number [id number] Cap Accreditation N o. [id number] [Autom ated message] The sy stem which generated this result transmit kendrick reference range : 0.00 - 0.11 K/UL. Th e reference range was not used to int erpret this result as normal/abnormal . PLATELET COUNT (test See_Comment [Autom ated message] code = 01554-2) The system w hich generated this result transmitted ref erence range: 130 - 40 0 K/UL. The reference r nanci was not used to interpret this result as normal/abnor mal. NEUTROPHILS ABSOLUTE See_Comment [Autom ated message] COUNT (test code = The syste m which 70086-3) generated this result transmitted ref erence range: 1.50 - 7 .50 K/UL. The refer ence range was not u sed to interpret this result as normal/abnor mal. LYMPHOCYTES ABSOLUTE See_Comment [Autom ated message] COUNT (test code = The syste m which 71276-7) generated this result transmitted ref erence range: 1.00 - 4 .00 K/UL. The refer ence range was not u sed to interpret this result as normal/abnor mal. MONOCYTES ABSOLUTE COUNT See_Comment [A utomated message] (test code = 83890-1) The sy stem which generated this result transmitted ref erence range: 0.20 - 1 .00 K/UL. The refer ence range was not u sed to interpret this result as normal/abnor mal. BASOPHILS ABSOLUTE COUNT See_Comment [A utomated message] (test code = 55061-9) The sy stem which generated this result [...] interpret this result as normal/abnor mal. [facility] [id number] 00:00:00 Test Item Value Reference Range Interpretation Comments COLOR UA (test code = 5778-6) Yellow YELLOW/STRAW CLARITY UA (test code = 60619-7) Clear CLEAR GLUCOSE UA (test code = 5792-7) Negative NEGATIVE BILIRUBIN UA (test code = 5770-3) Negative NEGATIVE KETONES UA (test code = 08028-3) Negative NEGATIVE SPECIFIC GRAVITY UA (test code [...] NEGATIVE REDUCING SUBSTANCES URINE (test code = 81255-8) [facility] (47326)2021-09-03 20:37:56 Test Item Value Reference Range Interpretation Comments NA (test code = 138 mmol/L 135-145 3959845443) K (test code = 4.4 mmol/L 3.5-5.0 7566610034) CL (test code = 99 mmol/L 98-108 0869828647) CO2 TOTAL (test code = 28 mmol/L 23-31 9133693288) AGAP (test code = 11 2-16 2170018602) BUN (test code = 18 mg/dL 7-23 1040483720) GLUCOSE (test code = 122 mg/dL 70-110 H 5725488040) CREATININE (test code = 0.59 mg/dL 0.50-1.04 9501259893) TOTAL BILI (test code = 0.5 mg/dL 0.1-1.2 7906475405) CALCIUM (test code = 9.0 mg/dL 8.6-10.6 1365610749) T PROTEIN (test code = 6.6 g/dL 6.3-8.2 1747791309) ALBUMIN (test code = 4.1 g/dL 3.5-5.0 9090685666) ALK PHOS (test code = 91 U/L 34-122 4702348981) ALTv (test code = 21 U/L 5-35 1742-6) AST(SGOT) (test code = 27 U/L 13-40 1260932510) eGFR (test code = 96.9 mL/min/1.73m2 8148250417) ALEXIS (test code = ALEXIS) Association of [...] tests). Lab Interpretation Abnormal (test code = 88204-8) [facility] 20:37:36 Test Item Value Reference Range Interpretation Comments LIPASE (test code = 0563854231) 184 U/L 0-220 Lab Interpretation (test code = Normal 80890-5) [facility] WITH [id number] 19:27:42 Test Item Value Reference Range Interpretation Comments WBC (test code = 8.34 See_Comment [Automated 6312-2) message] The sy stem which generated this result transmitted reference range : 4.30 - 11.10 10*3/?L. The reference range was not used to interpret this result as normal/abnormal . RBC (test code = 4.38 See_Comment [Automated 123-7) message] The sy stem which generated this [...] RDW-SD (test code = 48.8 fL 39.0-49.9 64300-9) RDW-CV (test code = 15.2 % 12.0-15.5 788-0) PLT (test code = 291 See_Comment [Automated 777-3) message] The sy stem which generated this result transmitted reference range : 166 - 358 10*3/ ?L. The reference r nanci was not used to interpret this result as normal/abnormal . MPV (test code = 11.2 fL 9.5-12.9 57837-5) NRBC/100 WBC (test 0.0 See_Comment [Automat ed code = 1603922499) message] The system which generated this result transmitted reference range : 0.0 - 10.0 /100 WBCs. The refer ence range was not u sed to interpret th is result as normal/abnormal . NRBC x10^3 (test code See_Comment [Auto mated = 3682471851) message] The s ystem which generated this result transmitted reference range : 10*3/?L. The reference range was not used to interpret this result as normal/abnormal . GRAN MAT (NEUT) % 60.5 % (test code = 770-8) IMM GRAN % (test code 0.40 % = 8711026305) LYMPH % (test code = 27.5 % 736-9) MONO % (test code = 8.3 % 5905-5) EOS % (test code = 2.9 % 713-8) BASO % (test code = 0.4 % 706-2) GRAN MAT x10^3(ANC) 5.06 10*3/uL 1.88-7.09 (test code = 2246888596) IMM GRAN x10^3 (test 0.03 10*3/uL 0.00-0.06 code = 4960723725) LYMPH x10^3 (test code 2.29 10*3/uL 1.32-3.29 = 731-0) MONO x10^3 (test code 0.69 10*3/uL 0.33-0.92 = 742-7) EOS x10^3 (test code = 0.24 10*3/uL 0.03-0.39 711-2) BASO x10^3 (test code 0.03 10*3/uL 0.01-0.07 = 704-7) Lab Interpretation Abnormal (test code = 98774-9) [facility] [id number] 00:00:00 Test Item Value Reference Range Interpretation Comments COLOR UA (test code = 5778-6) Yellow YELLOW/STRAW CLARITY UA (test code = Clear CLEAR 03600-1) GLUCOSE UA (test code = Negative NEGATIVE 5792-7) BILIRUBIN UA (test code = Negative NEGATIVE 5770-3) KETONES UA (test code = Negative NEGATIVE 15871-3) SPECIFIC GRAVITY UA (test 1.005-1.035 A code [...] REDUCING SUBSTANCES URINE NEGATIVE (test code = 22452-7) Lab Interpretation (test code Abnormal = 23774-8) [facility] [id number] 00:00:00 Test Item Value Reference Range Interpretation Comments COLOR UA (test code = 5778-6) Light Yellow YELLOW/STRAW CLARITY UA (test code = Cloudy CLEAR 13108-8) GLUCOSE UA (test code = Negative NEGATIVE 5792-7) BILIRUBIN UA (test code = Negative NEGATIVE 5770-3) KETONES UA (test code = Negative NEGATIVE 83400-0) SPECIFIC GRAVITY UA (test 1.005-1.035 code = [...] 5802-4) REDUCING SUBSTANCES URINE (test code = 44972-0) [facility] [id number] 11:28:02 Test Item Value Reference Range Interpretation Comments MAGNESIUM (test code = See_Comment Unle ss Otherwise 35738-0) Indicated, All Testing Performed At: [facility], [address] [place] [address] Laborator y Director: Tani Vazquez M.D. IA Number [id number] Cap Accreditation [place] o. 00078-96 [Autom ated message] The sy stem which generated this result transmitted ref erence range: 1.6 - 2. 6 MG/DL. The reference r nanci was not used to int erpret this result as normal/abnormal . [facility] [id number] 08:53:12 Test Item Value Reference Range Interpretation Comments GLUCOSE (test code = See_Comment H [Autom ated message] 0245-7) The system [employer] generated this result transmitted ref erence range: [...] L [Au tomated message] 2160-0) The system [employer] generated this result transmitted ref erence range: 0.60 - 1 .30 MG/DL. The refe rence range was not u sed to interpret this result as normal/abnor mal. EGFR AA (test code = See_Comment [Autom ated message] 94839-4) The system [employer] generated this result transmitted ref erence range: >60 ML/MIN/1.73. Th e reference range was not used to int erpret this result as normal/abnormal . EGFR (test code = See_Comment [Automate d message] 88030-2) The system [employer] generated this result transmitted ref erence range: >60 ML/MIN/1.73. Th e reference range was not used to int erpret this result as normal/abnormal . SODIUM (test code = See_Comment [Automa kendrick message] 2951-2) The system [employer] generated this result transmitted ref erence range: 133 - 14 6 MEQ/L. The refe rence range was not u sed to interpret this result as normal/abnor mal. POTASSIUM (test code = See_Comment [Aut omated message] 2823-3) The system [employer] generated this result transmitted ref erence range: 3.5 - 5. 4 MEQ/L. The refe rence range was not u sed to interpret this result as normal/abnor mal. CHLORIDE (test code = See_Comment [Auto mated message] 8475-0) The system [employer] generated this result transmitted ref erence range: 95 - 107 MEQ/L. The refe rence range was not u sed to interpret this result as normal/abnor mal. CO2 (test code = 1963-8) See_Comment [A utomated message] The system [employer] generated this result transmitted ref erence range: 19 - 31 MEQ/L. The reference r nanci was not used to interpret this result as normal/abnor mal. CALCIUM (test code = See_Comment Unless Otherwise 75089-5) Indicated, All Testing Perform ed At: [facility], [address] [place] [address], [place] [address] Laborator y Director: Tani Vazquez M.D. CLIA Number [id number] Cap Accreditation N o. 07931-48 [Autom ated message] The sy stem which generated this result transmit kendrick reference range : 8.5 - 10.5 MG/DL. T he reference range was not used to int erpret this result as normal/abnormal . Lab Interpretation (test Abnormal code = 65534-1) [facility] [id number] 08:53:12 Test Item Value Reference Range Interpretation Comments URIC ACID (test code See_Comment Unless Otherwise = 1249969) Indicated, All Testing Performed At: C linical Pathology [facility], [address] [place] [address] Laborator y Director: Tani rogers M.D. IA Number [id number] Cap Accreditation N o. 60402-77 [Automated mess age] The system which ge nerated this result transmit kendrick reference range : 2.7 - 6.1 MG/DL. The refe rence range was not used to interpret this result as normal/abnormal . [facility] HospitalFL, FLUORO, NON-SPECIFIC, UP TO 1 [id number] 09:44:00Reason for exam:->cystoFINAL REPORT A fluoroscopic unit was utilized for a procedure performed in the operating room. No interpretation was requested. Please refer to the operative report regarding findings. Please refer to PACS for patient radiation dose information. Signed: JR Elizabeth, Alla Mast Verified Date/Time: 07/14/2019 09:44:15 Reading Location: [address] Neuro Reading Room BLOOD [id number] 11:00:00 Test Item Value Reference Range Interpretation Comments CULTURE (BEAKER) (test No growth in 5 days code = 1095) BLOOD [id number] 11:00:00 Test Item Value Reference Range Interpretation Comments CULTURE (BEAKER) (test No growth in 5 days code = 1095) URINE [id number] 11:07:00 Test Item Value Reference Range Interpretation Comments CULTURE (BEAKER) (test code = 1095) No growth ANG, NEPHROSTOMY, PERC, EXTERNAL [id number] 11:00:00Reason for exam:- >request left PCN for left obstructing stone, feversFINAL REPORT Procedure: Percutaneous nephrostomy catheter placement. History: Left ureteric calculus with obstruction, infection. Installment Dealer: Bradford Matthew M.D. Corporate Planning Manager: Nargis mckeon M.D. Modality: Ultrasound and [...] sequential dilatation of the tract, an 8.5 Thai nephrostomy catheter was placed, pigtail locked in [...] the bladder. Impression:Successful ultrasound and fluoroscopicguided 8.5 Thai nephrostomy catheter placement left kidney via a posterior inferior calyx as described above. Further management dictated by the clinical scenario. The nephrostomy catheter(s) should be exchanged at the latest in three months. Thank you for the opportunity to assist in the care of your patient. Signed: Bradford Mattheweport Verified Date/Time: 07/10/2019 11:00:12 Reading Location:[place] [address] Angio Body Reading Room 11:00 AMBASIC METABOLIC [id number] 07:33:00 Test Item Value Reference Range Interpretation [...] 1092) DATA TO CALCULA TE ESTIMATED GFR. Bi Tri Operator ID - MONIE [id number] 07:25:00 Test Item Value Reference Range Interpretation Comments MAGNESIUM (BEAKER) (test code = 2.2 mg/dL 1.6-2.6 627) Bi Tri Operator ID - MONIE CHEPATIC FUNCTION [id number] 07:25:00 Test Item Value Reference Range Interpretation [...] (test code = 43 U/L 6-55 347) Bi Tri Operator ID - MONIE CCBC W/PLT COUNT & AUTO [id number] 06:54:00 Test Item Value Reference Range Interpretation [...] (BEAKER) (test code = 2801) BASIC METABOLIC [id number] 05:38:00 Test Item Value Reference Range Interpretation [...] 1092) DATA TO CALCULA TE ESTIMATED GFR. Bi Tri Operator ID - [id number] 05:24:00 Test Item Value Reference Range Interpretation Comments MAGNESIUM (BEAKER) (test code = 1.8 mg/dL 1.6-2.6 627) Bi Tri Operator ID - LAHEPATIC FUNCTION [id number] 05:24:00 Test Item Value Reference Range Interpretation [...] (test code = 36 U/L 6-55 347) Bi Tri Operator ID - LACBC W/PLT COUNT & AUTO [id number] 04:34:00 Test Item Value Reference Range Interpretation [...] (BEAKER) (test code = 2801) LACTIC ACID, [id number] 20:25:00 Test Item Value Reference Range Interpretation Comments LACTATE BLOOD VENOUS (2) (BEAKER) 0.69 mmol/L 0.50-2.20 (test code = 2872) Bi Tri Operator ID - NTPRAD, CHEST, 1 VIEW, NON [id number] 16:24:00Reason for exam:->feverShould this be performed at the bedside?->YesFINAL REPORT CLINICAL HISTORY: fever TECHNIQUE: 1 view of the chest. COMPARISON: None IMPRESSION: There is possible retrocardiac left lower lobe consolidation, for which clinical correlation for pneumonia is requested. There is blunting of the left costophrenic angle. The heart isnot enlarged. Signed: [facility] Verified Date/Time: 07/08/2019 16:24:52 Reading Location: [address] Neuro Reading Room HEMOGLOBIN [id number] 13:56:00 Test Item Value Reference Range Interpretation Comments HEMOGLOBIN A1C (BEAKER) (test code = 6.1 % 4.3-6.1 368) URINALYSIS W/ REFLEX URINE [id number] 13:15:00 Test Item Value Reference Range Interpretation [...] = 516) SOURCE(BEAKER) (test code = 2795) Bi Tri Operator ID - [auto]Bi Tri Operator ID - techRESPIRATORY PANEL [id number] 12:14:00 Test Item Value Reference Range Interpretation [...] decisions. This sample was tested at the [facility] using the [employer] Respiratory Panel. It is FDA cleared and has been verified and approved by the [facility] for clinical use on nasopharyngeal swab specimens.The performance of the FilmArrayRP has not been established in individuals who received influenza vaccine. Recent administration of a nasal influenza vaccine may cause false positive results for Influenza A and/orInfluenza B.SARS-COV2/RT-PCR ([facility])2019-07-08 11:26:00 Test Item Value Reference Range Interpretation Comments SARS-COV2/RT-PCR (test Not Detected Not Detected, Negative code = 5467128) SARS-COV-2 PERFORMING LAB [facility] (test code = 5009301) Negative results do not preclude SARS-CoV-2 infection [...] of the Act.Fact Sheet for Healthcare Pro viders:https://www.Siterra/Documents/Xpert%20Xpress%20SARS%20CoV-2/Fact%20Sh eets/302-3802%19AJIK-ZLH-2%20HEALTHCARE%20PROVIDERS%20FACT%20SHEET.pdfFact Sheet for Healthcare Patients:https://www.Hotelcloud/Documents/Xpert%20Xpress%20SARS%20CoV-2/Fact%20Sheets/302-3801%20SARS-COV -2%20PATIENT%20FACT%20SHEET.pdfPerforming Laboratory:[place] [address] [address] [place], [place] [address]LSQRL METABOLIC [id number] 10:06:00 Test Item Value Reference Range Interpretation [...] 1092) DATA TO CALCULA TE ESTIMATED GFR. Bi Tri Operator ID - [id number] 10:05:00 Test Item Value Reference Range Interpretation Comments MAGNESIUM (BEAKER) (test code = 2.0 mg/dL 1.6-2.6 627) Bi Tri Operator ID - NTPHEPATIC FUNCTION [id number] 10:05:00 Test Item Value Reference Range Interpretation [...] (test code = 30 U/L 6-55 347) Bi Tri Operator ID - [id number] 09:53:00 Test Item Value Reference Range Interpretation [...] 2.5-3.5 for patients wiht mechanical heart valves.PROTHROMBIN TIME/[id number] 09:51:00 Test Item Value Reference Range Interpretation [...] for patients wiht mechanical heart valves.LACTIC ACID, [id number] 09:50:00 Test Item Value Reference Range Interpretation Comments LACTATE BLOOD VENOUS (2) (BEAKER) 2.87 mmol/L 0.50-2.20 H (test code = 2872) Bi Tri Operator ID - NTPCBC W/PLT COUNT & AUTO [id number] 09:41:00 Test Item Value Reference Range Interpretation [...]
--- NOTE | 2022-08-07 20:10 | RAD REPORT ---
EXAM DESCRIPTION: RAD - Chest Single View - 08/07/2022 8:04 pm CLINICAL HISTORY: DYSPNEA Chest pain. COMPARISON: <Comparisons> FINDINGS: Portable technique limits examination quality. The lungs are grossly clear. The heart is normal in size. No displaced fractures. IMPRESSION: No acute intrathoracic process suspected.
[2022-08-07 21:19] LABS: Absolute Lymphocytes (CBC) 2.4 K/uL (0.7-4.9); Hematocrit 32.6 % (36.0-45.0); Lymphocytes % 25.4 % (15.3-44.8); MCV 69.1 fL (80-100); MPV 7.7 fL (7.6-11.3); RBC Red Blood Cell Count 4.72 M/uL (3.86-4.86)
[2022-08-07 21:49] LABS: Magnesium 2.1 mg/dL (1.6-2.4); Potassium 3.2 mEq/L (3.5-5.1); Troponin High Sensitivity 38.7 pg/mL (<58.9)
[2022-08-07 22:10] LABS: White Blood Cell Scan OK (OK)
[2022-08-07 22:11] LABS: Blood Morphology Comment NOTED (NOT SEEN); Hypochromasia 1+; Platelet Estimate ADEQ
[2022-08-07] MEDS ORDERED: FUROSEMIDE 40 MG/4 ML VIAL ONE (23:00)
[2022-08-07] MEDS ORDERED: POTASSIUM 25 MEQ EFFERV TAB ONE (23:00)
--- NOTE | 2022-08-08 00:10 | EDPHYS ---
Physician Documentation [facility] Name: Erika Jacobson Age: 87 yrs Sex: Female : 1935 Arrival Date: 08/07/2022 Time: 19:25 Bed 7 Private MD: ED Physician Gael Peres HPI: 08/07 21:22 This 87 yrs old Female presents to ER via Wheelchair with complaints of ms3 Breathing Difficulty. 21:22 87-year-old female with past medical history of asthma, congestive heart failure, CVA, ms3 hyperlipidemia, hypertension presents for shortness of breath that began 1 hour prior to arrival. Patient's son states patient has history of pulmonary edema and pneumonia. Patient's primary care and cardiology are with [facility]. Patient denies fevers, chills, nausea, vomiting. Patient endorses pedal edema.. Historical: - Home Meds: 19:38 aspirin 81 mg Oral chew 1 tab once daily [Active]; atorvastatin 40 mg Oral tab 1 tab rv once daily [Active]; carvedilol Oral [Active]; Lasix 40 mg Oral tablet 2 times per day [Active]; losartan 100 mg Oral tab 1 tab once daily [Active]; - PMHx: 19:38 Asthma; Congestive heart failure; CVA; Hyperlipidemia; Hypertension; rv - PSHx: 19:38 choleycestectomy; hysterectomy; kidney stones; rv - Immunization history:: Adult Immunizations up to date. - Social history:: Smoking status: Patient denies any tobacco usage or history of. ROS: 21:22 Constitutional: Negative for fever, and chills. Neck: Negative for injury, pain, and ms3 swelling, Cardiovascular: Negative for chest pain, and palpitations. 21:22 Abdomen/GI: Negative for abdominal pain, nausea, vomiting, diarrhea, and constipation, MS/Extremity: Negative for injury and deformity, Skin: Negative for injury, rash, and discoloration, Neuro: Negative for headache, weakness, numbness, tingling. 21:22 Respiratory: Positive for shortness of breath. 21:22 All other systems are negative. Exam: 21:22 Constitutional: This is a well developed, well nourished patient who is awake, alert, ms3 and in no acute distress. Head/Face: Normocephalic, atraumatic. Neck: Trachea midline, no cervical lymphadenopathy. Supple, full range of motion without nuchal rigidity, or vertebral point tenderness. No Meningismus. Chest/axilla: Normal chest wall appearance and motion. Nontender with no deformity. Cardiovascular: Regular rate and rhythm with a normal S1 and S2. No gallops, murmurs, or rubs. Normal PMI, no JVD. No pulse deficits. Respiratory: Lungs have equal breath sounds bilaterally, clear to auscultation and percussion. No rales, rhonchi or wheezes noted. No increased work of breathing, no retractions or nasal flaring. Abdomen/GI: Soft, non-tender, with normal bowel sounds. No distension or tympany. No guarding or rebound. No evidence of tenderness throughout. Skin: Warm, dry with normal turgor. Normal color with no rashes, no lesions, and no evidence of cellulitis. 21:22 Musculoskeletal/extremity: Extremities: noted in the Bilateral lower extremities: Pedal edema. 21:56 ECG was reviewed by the Attending Physician. ms3 Vital Signs: 19:35 BP 151 / 61; Pulse 92; Resp 19; Temp 98.3; Pulse Ox 96% ; Weight 62.6 kg; Height 5 ft. rv 3 in. ; 21:00 BP 127 / 98; Pulse 69; Resp 12; Pulse Ox 97% on R/A; nj1 22:00 BP 125 / 48; Pulse 78; Resp 19; Pulse Ox 95% on R/A; jb4 23:15 BP 114 / 64; Pulse 86; Resp 20; Pulse Ox 97% on R/A; jb4 08/08 00:31 BP 121 / 65; Pulse 81; Resp 17; Temp 98; Pulse Ox 98% on R/A; rv 08/07 19:35 Body Mass Index 24.45 (62.60 kg, 160.02 cm) rv MDM: 08/07 19:41 Patient medically screened. ms3 21:22 Differential diagnosis: Anemia CHF exacerbation, pneumonia, pulmonary edema. ms3 08/08 00:09 Data reviewed: vital signs, nurses notes, lab test result(s), EKG, radiologic studies, ms3 and as a result, I will discharge patient. I considered the following discharge prescriptions or medication management in the emergency department Medications were administered in the Emergency Department. See MAR. Independent interpretation of the following test(s) in the Emergency Department EKG: See my EKG interpretation above X-Ray: My interpretation is CXR image reviewed by me does not show pulmonary edema or pneumonia. Historians other than the Patient: Daughter/Son: Patient's son. Care significantly affected by the following chronic conditions: Hypertension, Congestive Heart Failure. Counseling: I had a detailed discussion with the patient and/or guardian regarding: the historical points, exam findings, and any diagnostic results supporting the discharge/admit diagnosis, lab results, radiology results, the need for outpatient follow up, to return to the emergency department if symptoms worsen or persist or if there are any questions or concerns that arise at home. Response to treatment: the patient's symptoms have markedly improved after treatment, and as a result, I will discharge patient. Special discussion: I discussed with the patient/guardian in detail that at this point there is no indication for admission to the hospital. It is understood, however, that if the symptoms persist or worsen the patient needs to return immediately for re-evaluation. 08/07 19:41 Order name: Basic Metabolic Panel; Complete Time: 22:3 08/07 19:41 Order name: CBC with Diff; Complete Time: 22:3 08/07 19:41 Order name: Magnesium; Complete Time: 22:08/07 19:41 Order name: NT PRO-BNP; Complete Time: 22: ms3 08/07 19:41 Order name: Troponin HS; Complete Time: 22: ms3 08/07 21:47 Order name: CBC Smear Scan; Complete Time: 22: EDMS 08/07 22:47 Order name: Troponin High Sensitivity; Complete Time: 00:09 la1 08/07 19:41 Order name: XRAY Chest (1 view); Complete Time: 20:12 ms3 08/07 19:41 Order name: EKG; Complete Time: 19:42 ms3 08/07 19:41 Order name: Cardiac monitoring; Complete Time: 21:07 ms3 08/07 19:41 Order name: EKG - Nurse/Tech; Complete Time: 20:24 ms3 08/07 19:41 Order name: IV Saline Lock; Complete Time: 21:07 ms08/07 19:41 Order name: Labs collected and sent; Complete Time: 21:07 ms08/07 19:41 Order name: O2 Per Protocol; Complete Time: 20:55 ms3 08/07 19:41 Order name: O2 Sat Monitoring; Complete Time: 20:55 ms3 EC/25 21:56 Rate is 86 beats/min. Rhythm is regular. Left axis deviation noted. IL interval is ms3 normal. QRS interval is prolonged. Clinical impression: NSR with LBBB. Interpreted by me. Reviewed by me. Administered Medications: 23:16 Drug: Furosemide IVP 40 mg Route: IVP; Site: right antecubital; jb4 08/08 00:31 Follow up: Response: No adverse reaction rv 08/07 23:17 Drug: Potassium PO Effervescent Tablet 50 mEq Route: PO; jb4 08/08 00:31 Follow up: Response: No adverse reaction rv Disposition Summary: 08/08/22 00:09 Discharge Ordered Location: Home ms3 Condition: Stable ms3 Diagnosis - Shortness of breath ms3 - Pedal Edema ms3 - Anemia, unspecified ms3 Discharge Instructions: - Discharge Summary Sheet ms3 - Anemia ms3 - Shortness of Breath, Adult ms3 - Edema, [id number] ms3 Forms: - Medication Reconciliation Form ms3 - Thank You Letter ms3 - Antibiotic Education ms3 - Prescription Opioid Use ms3 Signatures: Dispatcher [employer] Zach Simms, RN RN jb4 Georges Chávez RN RN rv Gael Peres DO DO ms3
--- NOTE | 2022-08-08 00:10 | ER ---
Nurse's Notes [facility] Name: Erika Jacobson Age: 87 yrs Sex: Female : 1935 Arrival Date: 08/07/2022 Time: 19:25 Bed 7 Private MD: Diagnosis: Shortness of breath;Pedal Edema;Anemia, unspecified Presentation: 08/07 19:35 Chief complaint: Patient's son or daughter states: sudden onset of SOB today. son is rv concerned because pt has history of pneumonia. and bilateral leg swelling. Coronavirus screen: Vaccine status: Patient reports receiving the 2nd dose of the covid vaccine. Ebola Screen: Patient negative for fever greater than or equal to 101.5 degrees Fahrenheit, and additional compatible Ebola Virus Disease symptoms Patient denies exposure to infectious person. Patient denies travel to an Ebola-affected area in the 21 days before illness onset. Initial Sepsis Screen: Does the patient meet any 2 criteria? No. Patient's initial sepsis screen is negative. Does the patient have a suspected source of infection? No. Patient's initial sepsis screen is negative. Risk Assessment: Do you want to hurt yourself or someone else? Patient reports no desire to harm self or others. Onset of symptoms was August 07, 2022. 19:35 Method Of Arrival: Wheelchair rv 19:35 Acuity: ISHAN 3 rv Triage Assessment: 19:39 General: Appears comfortable, Behavior is calm, cooperative. Pain: Denies pain. EENT: rv No signs and/or symptoms were reported regarding the EENT system. Neuro: Level of Consciousness is awake, alert, obeys commands, Oriented to person, place, time, situation. Cardiovascular: Capillary refill < 3 seconds. Respiratory: Reports shortness of breath at rest Onset: The symptoms/episode began/occurred today, the patient has mild shortness of breath. Historical: - Home Meds: 19:38 aspirin 81 mg Oral chew 1 tab once daily [Active]; atorvastatin 40 mg Oral tab 1 tab rv once daily [Active]; carvedilol Oral [Active]; Lasix 40 mg Oral tablet 2 times per day [Active]; losartan 100 mg Oral tab 1 tab once daily [Active]; - PMHx: 19:38 Asthma; Congestive heart failure; CVA; Hyperlipidemia; Hypertension; rv - PSHx: 19:38 choleycestectomy; hysterectomy; kidney stones; rv - Immunization history:: Adult Immunizations up to date. - Social history:: Smoking status: Patient denies any tobacco usage or history of. Screenin:00 [facility] ED Fall Risk Assessment (Adult) History of falling in the last 3 months, nj1 including since admission No falls in past 3 months (0 pts) Confusion or Disorientation No (0 pts) Intoxicated or Sedated No (0 pts) Impaired Gait No (0 pts) Mobility Assist Device Used No (0 pt) Altered Elimination No (0 pt) Score/Fall Risk Level 0 - 2 = Low Risk Oriented to surroundings, Maintained a safe environment, Hourly rounding (assess needs \T\ fall precautionary measures) done. 21:00 Abuse screen: Denies threats or abuse. Denies injuries from another. Nutritional nj1 screening: No deficits noted. Tuberculosis screening: No symptoms or risk factors identified. Assessment: 21:00 General: Appears in no apparent distress. comfortable, Behavior is calm, cooperative, nj1 appropriate for age. 21:00 Neuro: Level of Consciousness is awake, alert, obeys commands, Oriented to person, nj1 place, time, situation. Respiratory: Airway is patent Respiratory effort is even, unlabored, Sputum is clear Cough Breath sounds are clear bilaterally. 21:22 Cardiovascular: Rhythm is regular. rv 21:37 Reassessment: Patient appears in no apparent distress at this time. Patient and/or jb4 family updated on plan of care and expected duration. Pain level reassessed. Patient is alert, oriented x 3, equal unlabored respirations, skin warm/dry/pink. Vital Signs: 19:35 BP 151 / 61; Pulse 92; Resp 19; Temp 98.3; Pulse Ox 96% ; Weight 62.6 kg; Height 5 ft. rv 3 in. ; 21:00 BP 127 / 98; Pulse 69; Resp 12; Pulse Ox 97% on R/A; nj1 22:00 BP 125 / 48; Pulse 78; Resp 19; Pulse Ox 95% on R/A; jb4 23:15 BP 114 / 64; Pulse 86; Resp 20; Pulse Ox 97% on R/A; jb4 08/08 00:31 BP 121 / 65; Pulse 81; Resp 17; Temp 98; Pulse Ox 98% on R/A; rv 08/07 19:35 Body Mass Index 24.45 (62.60 kg, 160.02 cm) rv ED Course: 08/07 19:28 Patient arrived in ED. es 19:31 Gael Peres DO is Attending Physician. ms3 19:38 Triage completed. rv 19:40 Arm band placed on right wrist. rv 20:06 XRAY Chest (1 view) In Process Unspecified. EDMS 20:38 Purvi Castellano, RN is Primary Nurse. aa5 20:58 Inserted saline lock: 22 gauge in right antecubital area, using aseptic technique. nj1 Blood collected. 21:00 Patient has correct armband on for positive identification. Bed in low position. Call nj1 light in reach. Side rails up X 1. Adult w/ patient. 21:22 No provider procedures requiring assistance completed. rv 08/08 00:30 IV discontinued, intact, bleeding controlled, No redness/swelling at site. Pressure rv dressing applied. Administered Medications: 08/07 23:16 Drug: Furosemide IVP 40 mg Route: IVP; Site: right antecubital; [facility] 08/08 00:31 Follow up: Response: No adverse reaction rv 08/07 23:17 Drug: Potassium PO Effervescent Tablet 50 mEq Route: PO; [facility] 08/08 00:31 Follow up: Response: No adverse reaction rv Medication: 08/07 21:22 VIS not applicable for this client. rv Outcome: 08/08 00:09 Discharge ordered by . ms3 00:31 Discharged to home ambulatory, with family. rv 00:31 Condition: good 00:31 Discharge instructions given to patient, Instructed on discharge instructions, follow up and referral plans. Demonstrated understanding of instructions, follow-up care. 00:32 Patient left the ED. rv Signatures: Dispatcher [employer] EDMS Rosalba Weber Purvi Castellano, RN RN aa5 Zach Rosenthal, RN RN jb4 Georges Chávez, RN RN rv Gael Peres DO DO ms3 Isabel Hou, RN RN nj1
[2022-08-08 01:08] VITALS: BP 121/65; TEMP 98; O2SAT 98
--- NOTE | 2022-08-08 17:11 | EKG ---
Test Date: 2022-08-07 Test Time: 20:06:08 Industrial Engineering Intern: [facility] MEASUREMENT RESULTS: Intervals: Rate: 86 LA: 178 QRSD: 148 QT: 446 QTc: 533 [place]: P: 54 LA: 178 QRS: -6 T: 49 INTERPRETIVE STATEMENTS: Normal sinus rhythm Left bundle branch block Abnormal ECG Compared to ECG 08/03/2022 06:03:45 Left bundle-branch block now present Right superior axis no longer present Electronically Signed On 08-08-22 17:09:52 CDT by Preston Tubbs
== END 2022-08-08 00:32 | disposition home or self-care (01) ==
LOC: ER 19:25
DX: R06.02 Shortness of breath (principal); D64.9 Anemia, unspecified; R60.9 Edema, unspecified; I50.9 Heart failure, unspecified; I10 Essential (primary) hypertension; Z86.73 Personal history of transient ischemic attack (TIA), and cerebral infarction without residual deficits; Z79.82 Long term (current) use of aspirin
CPT/HCPCS: 93005; 85025; 80048; 36415; 83735; 84484 ×2; 83880; 71045; J1940

== ENCOUNTER 2022-08-28 05:07 | Inpatient (IN) | payer OTHER ==
--- OUTSIDE RECORDS SUMMARY | 2022-08-28 05:31 | XMS REPORT | Continuity of Care Document ---
:1935 Author Organization [facility] t Address [address] [facility]. [address] [place] [address] Care Team Providers Name Role Phone ANGELA CUNNINGHAM Primary Care Physician Unavailable LILIANA LI Attending Clinician Unavailable WON MATT Attending Clinician Unavailable WON MATT Attending Clinician Unavailable CECI LO K.HGertrude Attending Clinician Unavailable ANGELA CUNNINGHAM Attending Clinician Unavailable ANGELA CUNNINGHAM Attending Clinician Unavailable Ceci Lo MDHGertrude Attending Clinician Doctor Unassigned, [place] Attending Clinician Unavailable Lab, Thom Beaver Attending Clinician Unavailable Pob, [facility] Main Attending Clinician Unavailable Samreen Lee LMSW Attending Clinician STELLA GOODWIN Attending Clinician Unavailable KERLINE BURTON Attending Clinician Unavailable Won Matt MD Attending Clinician Lucie Reed Neurology Attending Clinician Unavailable Unknown, Attending Attending Clinician Unavailable Araseli Mosqueda Attending Clinician Tamela Borja Attending Clinician TAMELA GUTIERREZ Attending Clinician Unavailable CHARY DONALD Attending Clinician Unavailable Chary Infante Attending Clinician DANIEL PÉREZ Attending Clinician Unavailable Bib MURGUIA, Ree Attending Clinician Only, Ang Db Test Attending Clinician Unavailable Green PROCESS CONTROLLER, Tera Attending Clinician TERA RICKS Attending Clinician Unavailable KALYN PARADA Attending Clinician Unavailable Lyla PROCESS CONTROLLER, Amaya Attending Clinician Randal MURGUIA, Gerardo Attending Clinician Cristobal RN, Pamela Roman Attending Clinician Unavailable Austin Hobson MD Attending Clinician AUSTIN HOBSON Attending Clinician Unavailable JESSICA DON Attending Clinician Unavailable AMAYA ARITA Attending Clinician Unavailable Jessica Alvarez Attending Clinician Vaccine, Ang Db Cbc Fam Attending Clinician Unavailable Lab, Adc Fam Pob I Attending Clinician Unavailable Daniel Pérez MD Attending Clinician Provider, [facility] Attending Clinician Unavailable Mine Blair Attending Clinician MINE NO Attending Clinician Unavailable Ethan Scott DO Attending Clinician Adams Cuenca MD Attending Clinician 1, [facility] Attending Clinician Unavailable Renata Thacker Attending Clinician Unavailable Mirella Villalobos Attending Clinician [phone] Shy Miller Attending Clinician Unavailable 2, [facility] Attending Clinician Unavailable LILIANA LI Admitting Clinician Unavailable BOB HUI Admitting Clinician Unavailable WON MATT Admitting Clinician Unavailable AUSTIN HOBSON Admitting Clinician Unavailable ADRIANA HARTMANN Admitting Clinician Unavailable Payers Payer Name Policy Type Policy Number Effective Date Expiration Date S kim AARP/MEDICARE [id number] 2019 COMPLETE 00:00:00 MARTIN/AARP [id number] 2019 MEDICARE 00:00:00 ADVANTAGE MEDICAID [place] [id number] 2017 [place] 00:00:00 [facility] [id number] 2019 2020 [facility] - [...] Medical Branch Uses Uses Disease Active Univers Vietnamese as Vietnamese as 5-28 it y of primary primary [...] impairment impairment 9-25 it y of 00:00: [place] [facility] Hair loss Hair loss Disease [...] of feet feet 00:00: [place] [facility] Ureteropel Ureteropel Disease Active 2019- U nivers bessie bessie 5-25 ity of junction junction 00:00: [place] (UPJ) (UPJ) 00 Medical obstructio obstructio Br anch n, left n, left Abdominal Abdominal Disease [facility] 00 Center Sepsis Sepsis Disease Recurre [facility]: [facility] 00 Center Hypertensi Hypertensi Disease Active [facility] 00:00: [facility] 00 Center Bilateral Bilateral Disease Active 2018-02 Uni vers foot pain foot pain 1-26 ity of 00:00: [place] [facility] Kidney Kidney Disease Active 2017-02 Univers stone stone 0-15 ity of 00:00: [place] [facility] Abnormal Abnormal Disease Active [...] it y of on on 00:00: [place] 00 Medical Branch HLD HLD Disease Active 2016-02 Univers (hyperlipi (hyperlipi 0-02 it y of demia) demia) 00:00: [place] [address] Medical Branch History of History of Disease Active 2016-02 U nivers chest pain chest pain 0-02 it y of 00:00: [address] Branch Palpitatio Palpitatio Disease Active 2016-02 U nivers ns ns 0-02 ity of 00:00: [address] Osteoporos Osteoporos Disease Active U nivers is is ity [facility] Abnormal Abnormal Disease [facility], Adverse Reactions, Alerts Allergy Allergy Status Severity Reaction(s) Onset Inactive Treating Comm ents Source Name Type Date Date Clinician NO KNOWN Drug Active Univers ALLERGIE Class ity [facility] NO KNOWN [facility] Social History Social Habit Start Date Stop Date Quantity Comments Source History SDOH [facility] Std [facility] Drinks History SDOH [facility] Alcohol Binge Medical Marilyn ter History SDOH [facility] Alcohol Comment Medical C enter Exposure to 2022-07-02 2022-07-12 Not sure [facility]-CoV-2 00:00:00 14:22:00 [facility] (event) [place] Tobacco use and 2021-08-27 2021-08-27 Smokeless tobacco Un iversity of exposure 00:00:00 00:00:00 non-user [facility] Alcohol intake 2019-07-12 2019-07-[address] [facility] 00:00:00 00:00:00 non-drinker of Medical Ce nter alcohol (finding) History SDOH 2019-07-10 2019-07-[address] [facility] Alcohol Frequency 00:00:00 00:00:00 [facility] Sex Assigned At [address] [facility] 00:00:00 00:00:00 [facility] Smoking Status Start Date Stop Date Source Never smoked tobacco [facility] Medications Ordered Filled Start Stop Current Ordering Indication Dosage Frequency Signature Comments Components Source Medication Medication Date Date Medication? Clinician (SIG) Name Name albuterol Yes [id number] 2.5mg Inhale 3 Univers 2.5 mg /3 6-27 mL every 8 ity of mL (0.083 00:00: (eight) [place] %) 00 hours as Medical nebulizer needed for Bran ch solution Wheezing or Shortness of Breath. ipratropium 2023-0 Yes [id number] .5mg Inhale 2.5 Univers 0.02 % 6-27 mL every 6 ity of nebulizer 00:00: (six) [place] solution 00 hours as Medical needed for Branch Wheezing or Shortness of Breath. furosemide 2022-0 Yes [id number] 80mg Take 2 Univers 40 mg 6-27 tablets by ity of tablet 00:00: mouth [place] 00 every Medical morning Branch and evening. benzonatate 2023-0 Yes [id number] 200mg Take 1 Univers 200 mg 6-27 capsule by ity of capsule 00:00: mouth 3 [place] 00 (three) Medical times Branch daily as needed for Cough. ferrous 2022-0 Yes [id number] 324mg Take 1 Un briana sulfate 324 6-27 tablet by ity of mg (65 mg 00:00: mouth [place] iron) EC 00 daily with Medic al tablet breakfast. Branch albuterol 2022-0 Yes [id number] 2.5mg Inhale 3 Univers 2.5 mg /3 6-27 mL every 8 ity of mL (0.083 00:00: (eight) [place] %) 00 hours as Medical nebulizer needed for Bran ch solution Wheezing or Shortness of Breath. ipratropium 3-0 Yes [id number] .5mg Inhale 2.5 Univers 0.02 % 6-27 mL every 6 ity of nebulizer 00:00: (six) [place] solution 00 hours as Medical needed for Branch Wheezing or Shortness of Breath. furosemide 2022-0 Yes [id number] 80mg Take 2 Univers 40 mg 6-27 tablets by ity of tablet 00:00: mouth [place] 00 every Medical morning Branch and evening. benzonatate 2023-0 Yes [id number] 200mg Take 1 Univers 200 mg 6-27 capsule by ity of capsule 00:00: mouth 3 [place] 00 (three) Medical times Branch daily as needed for Cough. ferrous 3-0 Yes [id number] 324mg Take 1 Un briana sulfate 324 6-27 tablet by ity of mg (65 mg 00:00: mouth [place] iron) EC 00 daily with Medic al tablet breakfast. Branch albuterol 3-0 Yes [id number] 2.5mg Inhale 3 Univers 2.5 mg /3 6-27 mL every 8 ity of mL (0.083 00:00: (eight) [place] %) 00 hours as Medical nebulizer needed for Bran ch solution Wheezing or Shortness of Breath. ipratropium 3-0 Yes [id number] .5mg Inhale 2.5 Univers 0.02 % 6-27 mL every 6 ity of nebulizer 00:00: (six) [place] solution 00 hours as Medical needed for Branch Wheezing or Shortness of Breath. furosemide 2022-0 Yes [id number] 80mg Take 2 Univers 40 mg 6-27 tablets by ity of tablet 00:00: mouth [place] 00 every Medical morning Branch and evening. benzonatate 2022-0 Yes [id number] 200mg Take 1 Univers 200 mg 6-27 capsule by ity of capsule 00:00: mouth 3 [place] 00 (three) Medical times Branch daily as needed for Cough. ferrous 2022-0 Yes [id number] 324mg Take 1 Un briana sulfate 324 6-27 tablet by ity of mg (65 mg 00:00: mouth [place] iron) EC 00 daily with Medic al tablet breakfast. Branch albuterol 2022-0 Yes [id number] 2.5mg Inhale 3 Univers 2.5 mg /3 6-27 mL every 8 ity of mL (0.083 00:00: (eight) [place] %) 00 hours as Medical nebulizer needed for Bran ch solution Wheezing or Shortness of Breath. ipratropium 3-0 Yes [id number] .5mg Inhale 2.5 Univers 0.02 % 6-27 mL every 6 ity of nebulizer 00:00: (six) [place] solution 00 hours as Medical needed for Branch Wheezing or Shortness of Breath. furosemide 2022-0 Yes [id number] 80mg Take 2 Univers 40 mg 6-27 tablets by ity of tablet 00:00: mouth [place] 00 every Medical morning Branch and evening. benzonatate 2023-0 Yes [id number] 200mg Take 1 Univers 200 mg 6-27 capsule by ity of capsule 00:00: mouth 3 [place] 00 (three) Medical times Branch daily as needed for Cough. ferrous 3-0 Yes [id number] 324mg Take 1 Un briana sulfate 324 6-27 tablet by ity of mg (65 mg 00:00: mouth [place] iron) EC 00 daily with Medic al tablet breakfast. Branch carvediloL 2022-2022- Yes 3.125mg Take 1 U nivers 3.125 mg 08-09 tablet by ity o f tablet 00:00: 04:59 mouth 2 [place] 00 :00 (two) Medical times Branch daily with meals for 90 days. carvediloL 2022-0 2022- Yes 3.125mg Take 1 U nivers 3.125 mg 08-09 tablet by ity o f tablet 00:00: 04:59 mouth 2 [place] 00 :00 (two) Medical times Branch daily with meals for 90 days. furosemide 2022-0 Yes [id number] 80mg Take 2 Univers 40 mg 5-16 tablets by ity of tablet 00:00: mouth [place] 00 every Medical morning Branch and evening. furosemide 2022-0 Yes [id number] 80mg Take 2 Univers 40 mg 5-16 tablets by ity of tablet 00:00: mouth [place] 00 every Medical morning Branch and evening. furosemide 2022-0 Yes [id number] 80mg Take 2 Univers 40 mg 5-16 tablets by ity of tablet 00:00: mouth [place] 00 every Medical morning Branch and evening. furosemide 2022-0 Yes [id number] 80mg Take 2 Univers 40 mg 5-16 tablets by ity of tablet 00:00: mouth [place] 00 every Medical morning Branch and evening. furosemide 2022-0 Yes [id number] 80mg Take 2 Univers 40 mg 5-16 tablets by ity of tablet 00:00: mouth [place] 00 every Medical morning Branch and evening. furosemide 2022-0 Yes [id number] 80mg Take 2 Univers 40 mg 5-16 tablets by ity of tablet 00:00: mouth [place] 00 every Medical morning Branch and evening. furosemide 2022-0 Yes [id number] 80mg Take 2 Univers 40 mg 5-16 tablets by ity of tablet 00:00: mouth [place] 00 every Medical morning Branch and evening. furosemide 2022-0 Yes [id number] 80mg Take 2 Univers 40 mg 5-16 tablets by ity of tablet 00:00: mouth [place] 00 every Medical morning Branch and evening. furosemide 2022-0 Yes [id number] 80mg Take 2 Univers 40 mg 5-16 tablets by ity of tablet 00:00: mouth [place] 00 every Medical morning Branch and evening. furosemide 2022-0 Yes [id number] 80mg Take 2 Univers 40 mg 5-16 tablets by ity of tablet 00:00: mouth [place] 00 every Medical morning Branch and evening. furosemide 2022-0 Yes [id number] 80mg Take 2 Univers 40 mg 5-16 tablets by ity of tablet 00:00: mouth [place] 00 every Medical morning Branch and evening. furosemide 2022-0 Yes [id number] 80mg Take 2 Univers 40 mg 5-16 tablets by ity of tablet 00:00: mouth [place] 00 every Medical morning Branch and evening. furosemide 2022-0 Yes [id number] 80mg Take 2 Univers 40 mg 5-16 tablets by ity of tablet 00:00: mouth [place] 00 every Medical morning Branch and evening. furosemide 2022- Yes [id number] 80mg Take 2 Univers 40 mg 5-16 tablets by ity of tablet 00:00: mouth [place] 00 every Medical morning Branch and evening. furosemide 2022-2022- No [id number] 80mg Take 2 Univers 40 mg 5-16 06-27 tablets by ity of tablet 00:00: 00:00 mouth [place] 00 :00 every Medical morning Branch and evening. furosemide 2022- No [id number] 80mg Take 2 Univers 40 mg 5-16 06-27 tablets by ity of tablet 00:00: 00:00 mouth [place] 00 :00 every Medical morning Branch and evening. furosemide 2022- No [id number] 80mg Take 2 Univers 40 mg 5-16 06-27 tablets by ity of tablet 00:00: 00:00 mouth [place] 00 :00 every Medical morning Branch and evening. regadenoson 2022- No [id number] .4mg 0.4 mg, IV Univers (LEXISCAN) 06-23 Push, ity of injection 17:00: 15:51 ONCE, 1 [place] 0.4 mg 00 :00 dose, On Medical [place] Branch 06/23/22 at 1200, Routine
family member caretaker approving Restricted medication : CECI LO tc 2022- No [id number] 43.8mCi 43.8 Unive 99m-tetrofo 06-23 millicurie i ty of smin 15:30: 15:19 , [place] (MYOVIEW) 00 :00 Intravenou Medi angelica injection s, ONCE, 1 Bran ch 43.8 dose, On millicurie Luisa 06/23/22 at 1030, Routine tc 2022- No [id number] 16.5mCi 16.5 Unive rs 99m-tetrofo 06-23 millicurie i ty of [facility] 13:45: 13:45 , [place] (MYOVIEW) 00 :00 Intravenou Medi angelica injection s, ONCE, 1 Bran ch 16.5 dose, On millicurie Luisa 06/23/22 at 0845, Routine furosemide 2022-0 Yes [id number] 80mg Take 2 Univers 40 mg 5-09 tablets by ity of tablet 00:00: mouth [place] 00 every Medical morning Branch and evening. furosemide 2022-0 Yes [id number] 80mg Take 2 Univers 40 mg 5-09 tablets by ity of tablet 00:00: mouth [place] 00 every Medical morning Branch and evening. furosemide 2022-0 Yes [id number] 80mg Take 2 Univers 40 mg 5-09 tablets by ity of tablet 00:00: mouth [place] 00 every Medical morning Branch and evening. furosemide 2022-0 Yes [id number] 80mg Take 2 Univers 40 mg 5-09 tablets by ity of tablet 00:00: mouth [place] 00 every Medical morning Branch and evening. furosemide 2022-0 Yes [id number] 80mg Take 2 Univers 40 mg 5-09 tablets by ity of tablet 00:00: mouth [place] 00 every Medical morning Branch and evening. furosemide 2022-0 Yes [id number] 80mg Take 2 Univers 40 mg 5-09 tablets by ity of tablet 00:00: mouth [place] 00 every Medical morning Branch and evening. furosemide 2022-0 2022- No [id number] 80mg Take 2 Univers 40 mg 5-09 05-16 tablets by ity of tablet 00:00: 00:00 mouth [place] 00 :00 every Medical morning Branch and evening. furosemide 2022-0 202- No [id number] 80mg Take 2 Univers 40 mg 5-09 05-16 tablets by ity of tablet 00:00: 00:00 mouth [place] 00 :00 every Medical morning Branch and evening. atorvastati 2022-0 Yes [id number] 20mg Take 1 Univers n 20 mg 4-28 tablet by ity of tablet 00:00: mouth at [place] 00 bedtime. Medical Branch furosemide 2023-0 Yes [id number] 40mg Take 1 Univers 40 mg 4-28 tablet by ity of tablet 00:00: mouth [place] 00 every Medical morning Branch and evening. losartan 50 2022-0 Yes [id number] 25mg Take 0.5 Univers mg tablet 4-28 tablets by ity of 00:00: mouth [place] 00 every day Medical at 1200 Branch (noon). ipratropium 3-0 Yes [id number] .5mg Inhale 2.5 Univers 0.02 % 4-28 mL every 6 ity of nebulizer 00:00: (six) [place] solution 00 hours as Medical needed for Branch Wheezing or Shortness of Breath. albuterol 3-0 Yes [id number] 2.5mg Inhale 3 Univers 2.5 mg /3 4-28 mL every 8 ity of mL (0.083 00:00: (eight) [place] %) 00 hours as Medical nebulizer needed for Bran ch solution Wheezing or Shortness of Breath. atorvastati 2022-0 Yes [id number] 20mg Take 1 Univers n 20 mg 4-28 tablet by ity of tablet 00:00: mouth at [place] 00 bedtime. Medical Branch furosemide 3-0 Yes [id number] 40mg Take 1 Univers 40 mg 4-28 tablet by ity of tablet 00:00: mouth [place] 00 every Medical morning Branch and evening. losartan 50 2022-0 Yes [id number] 25mg Take 0.5 Univers mg tablet 4-28 tablets by ity of 00:00: mouth [place] 00 every day Medical at 1200 Branch (noon). ipratropium 3-0 Yes [id number] .5mg Inhale 2.5 Univers 0.02 % 4-28 mL every 6 ity of nebulizer 00:00: (six) [place] solution 00 hours as Medical needed for Branch Wheezing or Shortness of Breath. albuterol 2023-0 Yes [id number] 2.5mg Inhale 3 Univers 2.5 mg /3 4-28 mL every 8 ity of mL (0.083 00:00: (eight) [place] %) 00 hours as Medical nebulizer needed for Bran ch solution Wheezing or Shortness of Breath. atorvastati 3-0 Yes [id number] 20mg Take 1 Univers n 20 mg 4-28 tablet by ity of tablet 00:00: mouth at [place] 00 bedtime. Medical Branch furosemide 3-0 Yes [id number] 40mg Take 1 Univers 40 mg 4-28 tablet by ity of tablet 00:00: mouth [place] 00 every Medical morning Branch and evening. losartan 50 3-0 Yes [id number] 25mg Take 0.5 Univers mg tablet 4-28 tablets by ity of 00:00: mouth [place] 00 every day Medical at 1200 Branch (noon). ipratropium 3-0 Yes [id number] .5mg Inhale 2.5 Univers 0.02 % 4-28 mL every 6 ity of nebulizer 00:00: (six) [place] solution 00 hours as Medical needed for Branch Wheezing or Shortness of Breath. albuterol 2022-0 Yes [id number] 2.5mg Inhale 3 Univers 2.5 mg /3 4-28 mL every 8 ity of mL (0.083 00:00: (eight) [place] %) 00 hours as Medical nebulizer needed for Bran ch solution Wheezing or Shortness of Breath. atorvastati 2022-0 Yes [id number] 20mg Take 1 Univers n 20 mg 4-28 tablet by ity of tablet 00:00: mouth at [place] 00 bedtime. Medical Branch furosemide 2022-0 Yes [id number] 40mg Take 1 Univers 40 mg 4-28 tablet by ity of tablet 00:00: mouth [place] 00 every Medical morning Branch and evening. losartan 50 2022-0 Yes [id number] 25mg Take 0.5 Univers mg tablet 4-28 tablets by ity of 00:00: mouth [place] 00 every day Medical at 1200 Branch (noon). ipratropium 2022-0 Yes [id number] .5mg Inhale 2.5 Univers 0.02 % 4-28 mL every 6 ity of nebulizer 00:00: (six) [place] solution 00 hours as Medical needed for Branch Wheezing or Shortness of Breath. albuterol 3-0 Yes [id number] 2.5mg Inhale 3 Univers 2.5 mg /3 4-28 mL every 8 ity of mL (0.083 00:00: (eight) [place] %) 00 hours as Medical nebulizer needed for Bran ch solution Wheezing or Shortness of Breath. atorvastati 2022-0 Yes [id number] 20mg Take 1 Univers n 20 mg 4-28 tablet by ity of tablet 00:00: mouth at [place] 00 bedtime. Medical Branch furosemide 2022-0 Yes [id number] 40mg Take 1 Univers 40 mg 4-28 tablet by ity of tablet 00:00: mouth [place] 00 every Medical morning Branch and evening. losartan 50 2022-0 Yes [id number] 25mg Take 0.5 Univers mg tablet 4-28 tablets by ity of 00:00: mouth [place] 00 every day Medical at 1200 Branch (noon). ipratropium 2022-0 Yes [id number] .5mg Inhale 2.5 Univers 0.02 % 4-28 mL every 6 ity of nebulizer 00:00: (six) [place] solution 00 hours as Medical needed for Branch Wheezing or Shortness of Breath. albuterol 2022-0 Yes [id number] 2.5mg Inhale 3 Univers 2.5 mg /3 4-28 mL every 8 ity of mL (0.083 00:00: (eight) [place] %) 00 hours as Medical nebulizer needed for Bran ch solution Wheezing or Shortness of Breath. atorvastati 2022-0 Yes [id number] 20mg Take 1 Univers n 20 mg 4-28 tablet by ity of tablet 00:00: mouth at [place] 00 bedtime. Medical Branch furosemide 2022-0 Yes [id number] 40mg Take 1 Univers 40 mg 4-28 tablet by ity of tablet 00:00: mouth [place] 00 every Medical morning Branch and evening. losartan 50 2022-0 Yes [id number] 25mg Take 0.5 Univers mg tablet 4-28 tablets by ity of 00:00: mouth [place] 00 every day Medical at 1200 Branch (noon). ipratropium 2022-0 Yes [id number] .5mg Inhale 2.5 Univers 0.02 % 4-28 mL every 6 ity of nebulizer 00:00: (six) [place] solution 00 hours as Medical needed for Branch Wheezing or Shortness of Breath. albuterol 2022-0 Yes [id number] 2.5mg Inhale 3 Univers 2.5 mg /3 4-28 mL every 8 ity of mL (0.083 00:00: (eight) [place] %) 00 hours as Medical nebulizer needed for Bran ch solution Wheezing or Shortness of Breath. atorvastati 2022-0 Yes [id number] 20mg Take 1 Univers n 20 mg 4-28 tablet by ity of tablet 00:00: mouth at [place] 00 bedtime. Medical Branch furosemide 2022-0 Yes [id number] 40mg Take 1 Univers 40 mg 4-28 tablet by ity of tablet 00:00: mouth [place] 00 every Medical morning Branch and evening. losartan 50 3-0 Yes [id number] 25mg Take 0.5 Univers mg tablet 4-28 tablets by ity of 00:00: mouth [place] 00 every day Medical at 1200 Branch (noon). ipratropium 2022-0 Yes [id number] .5mg Inhale 2.5 Univers 0.02 % 4-28 mL every 6 ity of nebulizer 00:00: (six) [place] solution 00 hours as Medical needed for Branch Wheezing or Shortness of Breath. albuterol 2022-0 Yes [id number] 2.5mg Inhale 3 Univers 2.5 mg /3 4-28 mL every 8 ity of mL (0.083 00:00: (eight) [place] %) 00 hours as Medical nebulizer needed for Bran ch solution Wheezing or Shortness of Breath. atorvastati 2022-0 Yes [id number] 20mg Take 1 Univers n 20 mg 4-28 tablet by ity of tablet 00:00: mouth at [place] 00 bedtime. Medical Branch furosemide 2022-0 Yes [id number] 40mg Take 1 Univers 40 mg 4-28 tablet by ity of tablet 00:00: mouth [place] 00 every Medical morning Branch and evening. losartan 50 2022-0 Yes [id number] 25mg Take 0.5 Univers mg tablet 4-28 tablets by ity of 00:00: mouth [place] 00 every day Medical at 1200 Branch (noon). ipratropium 2022-0 Yes [id number] .5mg Inhale 2.5 Univers 0.02 % 4-28 mL every 6 ity of nebulizer 00:00: (six) [place] solution 00 hours as Medical needed for Branch Wheezing or Shortness of Breath. albuterol 2022-0 Yes [id number] 2.5mg Inhale 3 Univers 2.5 mg /3 4-28 mL every 8 ity of mL (0.083 00:00: (eight) [place] %) 00 hours as Medical nebulizer needed for Bran ch solution Wheezing or Shortness of Breath. atorvastati 2022-0 Yes [id number] 20mg Take 1 Univers n 20 mg 4-28 tablet by ity of tablet 00:00: mouth at [place] 00 bedtime. Medical Branch furosemide 2022-0 Yes [id number] 40mg Take 1 Univers 40 mg 4-28 tablet by ity of tablet 00:00: mouth [place] 00 every Medical morning Branch and evening. losartan 50 2022-0 Yes [id number] 25mg Take 0.5 Univers mg tablet 4-28 tablets by ity of 00:00: mouth [place] 00 every day Medical at 1200 Branch (noon). ipratropium 2022-0 Yes [id number] .5mg Inhale 2.5 Univers 0.02 % 4-28 mL every 6 ity of nebulizer 00:00: (six) [place] solution 00 hours as Medical needed for Branch Wheezing or Shortness of Breath. albuterol 2022-0 Yes [id number] 2.5mg Inhale 3 Univers 2.5 mg /3 4-28 mL every 8 ity of mL (0.083 00:00: (eight) [place] %) 00 hours as Medical nebulizer needed for Bran ch solution Wheezing or Shortness of Breath. atorvastati 2022-0 Yes [id number] 20mg Take 1 Univers n 20 mg 4-28 tablet by ity of tablet 00:00: mouth at [place] 00 bedtime. Medical Branch furosemide 2022-0 Yes [id number] 40mg Take 1 Univers 40 mg 4-28 tablet by ity of tablet 00:00: mouth [place] 00 every Medical morning Branch and evening. losartan 50 2022-0 Yes [id number] 25mg Take 0.5 Univers mg tablet 4-28 tablets by ity of 00:00: mouth [place] 00 every day Medical at 1200 Branch (noon). ipratropium 3-0 Yes [id number] .5mg Inhale 2.5 Univers 0.02 % 4-28 mL every 6 ity of nebulizer 00:00: (six) [place] solution 00 hours as Medical needed for Branch Wheezing or Shortness of Breath. albuterol 2022-0 Yes [id number] 2.5mg Inhale 3 Univers 2.5 mg /3 4-28 mL every 8 ity of mL (0.083 00:00: (eight) [place] %) 00 hours as Medical nebulizer needed for Bran ch solution Wheezing or Shortness of Breath. atorvastati 2022-0 Yes [id number] 20mg Take 1 Univers n 20 mg 4-28 tablet by ity of tablet 00:00: mouth at [place] 00 bedtime. Medical Branch furosemide 2022-0 Yes [id number] 40mg Take 1 Univers 40 mg 4-28 tablet by ity of tablet 00:00: mouth [place] 00 every Medical morning Branch and evening. losartan 50 2022-0 Yes [id number] 25mg Take 0.5 Univers mg tablet 4-28 tablets by ity of 00:00: mouth [place] 00 every day Medical at 1200 Branch (noon). ipratropium 2022-0 Yes [id number] .5mg Inhale 2.5 Univers 0.02 % 4-28 mL every 6 ity of nebulizer 00:00: (six) [place] solution 00 hours as Medical needed for Branch Wheezing or Shortness of Breath. albuterol 2022-0 Yes [id number] 2.5mg Inhale 3 Univers 2.5 mg /3 4-28 mL every 8 ity of mL (0.083 00:00: (eight) [place] %) 00 hours as Medical nebulizer needed for Bran ch solution Wheezing or Shortness of Breath. atorvastati 2022-0 Yes [id number] 20mg Take 1 [facility] n 20 mg 4-28 tablet by [facility] of tablet 00:00: mouth at [place] 00 bedtime. Medical Branch furosemide 2022-0 Yes [id number] 40mg Take 1 [facility] 40 mg 4-28 tablet by [facility] of tablet 00:00: mouth [place] 00 every Medical morning Branch and evening. losartan 50 2022-0 Yes [id number] 25mg Take 0.5 [facility] mg tablet 4-28 tablets by [facility] of 00:00: mouth [place] 00 every day Medical at [address] [facility] (noon). ipratropium 3-0 Yes [id number] .5mg Inhale 2.5 [facility] 0.02 % 4-28 mL every 6 [facility] of nebulizer 00:00: (six) [place] solution 00 hours as Medical needed for Branch Wheezing or Shortness of Breath. albuterol 3-0 Yes [id number] 2.5mg Inhale 3 [facility] 2.5 mg /3 4-28 mL every 8 [facility] of mL (0.083 00:00: (eight) [place] %) 00 hours as Medical nebulizer needed for Bran ch solution Wheezing or Shortness of Breath. atorvastati 2022-0 Yes [id number] 20mg Take 1 [facility] n 20 mg 4-28 tablet by [facility] of tablet 00:00: mouth at [place] 00 bedtime. Medical Branch losartan 50 2022-0 Yes [id number] 25mg Take 0.5 [facility] mg tablet 4-28 tablets by [facility] of 00:00: mouth [place] 00 every day Medical at [address] [facility] (noon). ipratropium 3-0 Yes [id number] .5mg Inhale 2.5 [facility] 0.02 % 4-28 mL every 6 [facility] of nebulizer 00:00: (six) [place] solution 00 hours as Medical needed for Branch Wheezing or Shortness of Breath. albuterol 2022-0 Yes [id number] 2.5mg Inhale 3 [facility] 2.5 mg /3 4-28 mL every 8 [facility] of mL (0.083 00:00: (eight) [place] %) 00 hours as Medical nebulizer needed for Bran ch solution Wheezing or Shortness of Breath. atorvastati 2022-0 Yes [id number] 20mg Take 1 [facility] n 20 mg 4-28 tablet by [facility] of tablet 00:00: mouth at [place] 00 bedtime. Medical Branch losartan 50 2022-0 Yes [id number] 25mg Take 0.5 [facility] mg tablet 4-28 tablets by [facility] of 00:00: mouth [place] 00 every day Medical at [address] [facility] (noon). ipratropium 3-0 Yes [id number] .5mg Inhale 2.5 [facility] 0.02 % 4-28 mL every 6 [facility] of nebulizer 00:00: (six) [place] solution 00 hours as Medical needed for Branch Wheezing or Shortness of Breath. albuterol 2023-0 Yes [id number] 2.5mg Inhale 3 [facility] 2.5 mg /3 4-28 mL every 8 [facility] of mL (0.083 00:00: (eight) [place] %) 00 hours as Medical nebulizer needed for Bran ch solution Wheezing or Shortness of Breath. atorvastati 3-0 Yes [id number] 20mg Take 1 [facility] n 20 mg 4-28 tablet by [facility] of tablet 00:00: mouth at [place] 00 bedtime. Medical Branch losartan 50 2022-0 Yes [id number] 25mg Take 0.5 [facility] mg tablet 4-28 tablets by [facility] of 00:00: mouth [place] 00 every day Medical at [address] [place] (noon). ipratropium 2023-0 Yes [id number] .5mg Inhale 2.5 [facility] 0.02 % 4-28 mL every 6 [facility] of nebulizer 00:00: (six) [place] solution 00 hours as Medical needed for Branch Wheezing or Shortness of Breath. albuterol 3-0 Yes [id number] 2.5mg Inhale 3 [facility] 2.5 mg /3 4-28 mL every 8 [facility] of mL (0.083 00:00: (eight) [place] %) 00 hours as Medical nebulizer needed for Bran ch solution Wheezing or Shortness of Breath. atorvastati 2022-0 Yes [id number] 20mg Take 1 [facility] n 20 mg 4-28 tablet by [facility] of tablet 00:00: mouth at [place] 00 bedtime. Medical Branch losartan 50 2022-0 Yes [id number] 25mg Take 0.5 [facility] mg tablet 4-28 tablets by [facility] of 00:00: mouth [place] 00 every day Medical at [address] [place] [address] (noon). ipratropium 2023-0 Yes [id number] .5mg Inhale 2.5 [facility] 0.02 % 4-28 mL every 6 [facility] of nebulizer 00:00: (six) [place] solution 00 hours as Medical needed for Branch Wheezing or Shortness of Breath. albuterol 3-0 Yes [id number] 2.5mg Inhale 3 [facility] 2.5 mg /3 4-28 mL every 8 [facility] of mL (0.083 00:00: (eight) [place] %) 00 hours as Medical nebulizer needed for Bran ch solution Wheezing or Shortness of Breath. atorvastati 3-0 Yes [id number] 20mg Take 1 [facility] n 20 mg 4-28 tablet by [facility] of tablet 00:00: mouth at [place] 00 bedtime. Medical Branch losartan 50 2022-0 Yes [id number] 25mg Take 0.5 [facility] mg tablet 4-28 tablets by [facility] of 00:00: mouth [place] 00 every day Medical at [address] [place] (noon). ipratropium 2023-0 Yes [id number] .5mg Inhale 2.5 [facility] 0.02 % 4-28 mL every 6 [facility] of nebulizer 00:00: (six) [place] solution 00 hours as Medical needed for Branch Wheezing or Shortness of Breath. albuterol 2023-0 Yes [id number] 2.5mg Inhale 3 [facility] 2.5 mg /3 4-28 mL every 8 [facility] of mL (0.083 00:00: (eight) [place] %) 00 hours as Medical nebulizer needed for Bran ch solution Wheezing or Shortness of Breath. atorvastati 2022-0 Yes [id number] 20mg Take 1 [facility] n 20 mg 4-28 tablet by [facility] of tablet 00:00: mouth at [place] 00 bedtime. Medical Branch losartan 50 2022-0 Yes [id number] 25mg Take 0.5 [facility] mg tablet 4-28 tablets by [facility] of 00:00: mouth [place] 00 every day Medical at [address] [facility] (noon). ipratropium 3-0 Yes [id number] .5mg Inhale 2.5 [facility] 0.02 % 4-28 mL every 6 [facility] of nebulizer 00:00: (six) [place] solution 00 hours as Medical needed for Branch Wheezing or Shortness of Breath. albuterol 2022-0 Yes [id number] 2.5mg Inhale 3 [facility] 2.5 mg /3 4-28 mL every 8 [facility] of mL (0.083 00:00: (eight) [place] %) 00 hours as Medical nebulizer needed for Bran ch solution Wheezing or Shortness of Breath. atorvastati 2022-0 Yes [id number] 20mg Take 1 [facility] n 20 mg 4-28 tablet by [facility] of tablet 00:00: mouth at [place] 00 bedtime. Medical Branch losartan 50 2022-0 Yes [id number] 25mg Take 0.5 [facility] mg tablet 4-28 tablets by [facility] of 00:00: mouth [place] 00 every day Medical at [address] [facility] (noon). ipratropium 2023-0 Yes [id number] .5mg Inhale 2.5 [facility] 0.02 % 4-28 mL every 6 [facility] of nebulizer 00:00: (six) [place] solution 00 hours as Medical needed for Branch Wheezing or Shortness of Breath. albuterol 2023-0 Yes [id number] 2.5mg Inhale 3 [facility] 2.5 mg /3 4-28 mL every 8 [facility] of mL (0.083 00:00: (eight) [place] %) 00 hours as Medical nebulizer needed for Bran ch solution Wheezing or Shortness of Breath. atorvastati 3-0 Yes [id number] 20mg Take 1 [facility] n 20 mg 4-28 tablet by [facility] of tablet 00:00: mouth at [place] 00 bedtime. Medical Branch losartan 50 2022-0 Yes [id number] 25mg Take 0.5 [facility] mg tablet 4-28 tablets by [facility] of 00:00: mouth [place] 00 every day Medical at [address] [place] (noon). ipratropium 3-0 Yes [id number] .5mg Inhale 2.5 [facility] 0.02 % 4-28 mL every 6 [facility] of nebulizer 00:00: (six) [place] solution 00 hours as Medical needed for Branch Wheezing or Shortness of Breath. albuterol 3-0 Yes [id number] 2.5mg Inhale 3 [facility] 2.5 mg /3 4-28 mL every 8 [facility] of mL (0.083 00:00: (eight) [place] %) 00 hours as Medical nebulizer needed for Bran ch solution Wheezing or Shortness of Breath. atorvastati 2022-0 Yes [id number] 20mg Take 1 [facility] n 20 mg 4-28 tablet by [facility] of tablet 00:00: mouth at [place] 00 bedtime. Medical Branch losartan 50 2022-0 Yes [id number] 25mg Take 0.5 [facility] mg tablet 4-28 tablets by [facility] of 00:00: mouth [place] 00 every day Medical at [address] [place] (noon). ipratropium 2023-0 Yes [id number] .5mg Inhale 2.5 [facility] 0.02 % 4-28 mL every 6 [facility] of nebulizer 00:00: (six) [place] solution 00 hours as Medical needed for Branch Wheezing or Shortness of Breath. albuterol 2023-0 Yes [id number] 2.5mg Inhale 3 [facility] 2.5 mg /3 4-28 mL every 8 [facility] of mL (0.083 00:00: (eight) [place] %) 00 hours as Medical nebulizer needed for Bran ch solution Wheezing or Shortness of Breath. atorvastati 3-0 Yes [id number] 20mg Take 1 [facility] n 20 mg 4-28 tablet by [facility] of tablet 00:00: mouth at [place] 00 bedtime. Medical Branch losartan 50 2022-0 Yes [id number] 25mg Take 0.5 [facility] mg tablet 4-28 tablets by [facility] of 00:00: mouth [place] 00 every day Medical at [address] [place] (noon). ipratropium 3-0 Yes [id number] .5mg Inhale 2.5 [facility] 0.02 % 4-28 mL every 6 [facility] of nebulizer 00:00: (six) [place] solution 00 hours as Medical needed for Branch Wheezing or Shortness of Breath. albuterol 3-0 Yes [id number] 2.5mg Inhale 3 [facility] 2.5 mg /3 4-28 mL every 8 [facility] of mL (0.083 00:00: (eight) [place] %) 00 hours as Medical nebulizer needed for Bran ch solution Wheezing or Shortness of Breath. atorvastati 2022-0 Yes [id number] 20mg Take 1 [facility] n 20 mg 4-28 tablet by [facility] of tablet 00:00: mouth at [place] 00 bedtime. Medical Branch losartan 50 2022-0 Yes [id number] 25mg Take 0.5 [facility] mg tablet 4-28 tablets by [facility] of 00:00: mouth [place] 00 every day Medical at [address] [place] (noon). ipratropium 2023-0 Yes [id number] .5mg Inhale 2.5 [facility] 0.02 % 4-28 mL every 6 [facility] of nebulizer 00:00: (six) [place] solution 00 hours as Medical needed for Branch Wheezing or Shortness of Breath. albuterol 3-0 Yes [id number] 2.5mg Inhale 3 [facility] 2.5 mg /3 4-28 mL every 8 [facility] of mL (0.083 00:00: (eight) [place] %) 00 hours as Medical nebulizer needed for Bran ch solution Wheezing or Shortness of Breath. atorvastati 3-0 Yes [id number] 20mg Take 1 [facility] n 20 mg 4-28 tablet by [facility] of tablet 00:00: mouth at [place] 00 bedtime. Medical Branch losartan 50 2022-0 Yes [id number] 25mg Take 0.5 [facility] mg tablet 4-28 tablets by it[facility] of 00:00: mouth [place] 00 every day Medical at [address] [place] (noon). ipratropium 2023-0 Yes [id number] .5mg Inhale 2.5 [facility] 0.02 % 4-28 mL every 6 [facility] of nebulizer 00:00: (six) [place] solution 00 hours as Medical needed for Branch Wheezing or Shortness of Breath. albuterol 2022-0 Yes [id number] 2.5mg Inhale 3 [facility] 2.5 mg /3 4-28 mL every 8 [facility] of mL (0.083 00:00: (eight) [place] %) 00 hours as Medical nebulizer needed for Bran ch solution Wheezing or Shortness of Breath. atorvastati 2022-0 Yes [id number] 20mg Take 1 [facility] n 20 mg 4-28 tablet by [facility] of tablet 00:00: mouth at [place] 00 bedtime. Medical Branch losartan 50 2022-0 Yes [id number] 25mg Take 0.5 [facility] mg tablet 4-28 tablets by ity of 00:00: mouth [place] 00 every day Medical at [address] [facility] (noon). ipratropium 3-0 Yes [id number] .5mg Inhale 2.5 [facility] 0.02 % 4-28 mL every 6 [facility] of nebulizer 00:00: (six) [place] solution 00 hours as Medical needed for Branch Wheezing or Shortness of Breath. albuterol 2022-0 Yes [id number] 2.5mg Inhale 3 [facility] 2.5 mg /3 4-28 mL every 8 [facility] of mL (0.083 00:00: (eight) [place] %) 00 hours as Medical nebulizer needed for Bran ch solution Wheezing or Shortness of Breath. atorvastati 2022-0 Yes [id number] 20mg Take 1 [facility] n 20 mg 4-28 tablet by [facility] of tablet 00:00: mouth at [place] 00 bedtime. Medical Branch losartan 50 2022-0 Yes [id number] 25mg Take 0.5 [facility] mg tablet 4-28 tablets by it[facility] of 00:00: mouth [place] 00 every day Medical at [address] [facility] (noon). ipratropium 2023-0 Yes [id number] .5mg Inhale 2.5 [facility] 0.02 % 4-28 mL every 6 [facility] of nebulizer 00:00: (six) [place] solution 00 hours as Medical needed for Branch Wheezing or Shortness of Breath. albuterol 3-0 Yes [id number] 2.5mg Inhale 3 [facility] 2.5 mg /3 4-28 mL every 8 [facility] of mL (0.083 00:00: (eight) [place] %) 00 hours as Medical nebulizer needed for Bran ch solution Wheezing or Shortness of Breath. atorvastati 2022-0 Yes [id number] 20mg Take 1 [facility] n 20 mg 4-28 tablet by it[facility] of tablet 00:00: mouth at [place] 00 bedtime. Medical Branch losartan 50 2022-0 Yes [id number] 25mg Take 0.5 [facility] mg tablet 4-28 tablets by it[facility] of 00:00: mouth [place] 00 every day Medical at [address] [facility] (noon). ipratropium 3-0 Yes [id number] .5mg Inhale 2.5 [facility] 0.02 % 4-28 mL every 6 [facility] of nebulizer 00:00: (six) [place] solution 00 hours as Medical needed for Branch Wheezing or Shortness of Breath. albuterol 2022-0 Yes [id number] 2.5mg Inhale 3 [facility] 2.5 mg /3 4-28 mL every 8 [facility] of mL (0.083 00:00: (eight) [place] %) 00 hours as Medical nebulizer needed for Bran ch solution Wheezing or Shortness of Breath. atorvastati 2022-0 Yes [id number] 20mg Take 1 [facility] n 20 mg 4-28 tablet by [facility] of tablet 00:00: mouth at [place] 00 bedtime. Medical Branch losartan 50 2022-0 Yes [id number] 25mg Take 0.5 [facility] mg tablet 4-28 tablets by ity of 00:00: mouth [place] 00 every day Medical at [address] [place] (noon). ipratropium 2023-0 Yes [id number] .5mg Inhale 2.5 [facility] 0.02 % 4-28 mL every 6 ity of nebulizer 00:00: (six) [place] solution 00 hours as Medical needed for Branch Wheezing or Shortness of Breath. albuterol 2023-0 Yes [id number] 2.5mg Inhale 3 [facility] 2.5 mg /3 4-28 mL every 8 [facility] of mL (0.083 00:00: (eight) [place] %) 00 hours as Medical nebulizer needed for Bran ch solution Wheezing or Shortness of Breath. atorvastati 2022-0 Yes [id number] 20mg Take 1 [facility] n 20 mg 4-28 tablet by it[facility] of tablet 00:00: mouth at [place] 00 bedtime. Medical Branch losartan 50 2022-0 Yes [id number] 25mg Take 0.5 [facility] mg tablet 4-28 tablets by ity of 00:00: mouth [place] 00 every day Medical at [address] [place] (noon). ipratropium 3-0 Yes [id number] .5mg Inhale 2.5 [facility] 0.02 % 4-28 mL every 6 ity of nebulizer 00:00: (six) [place] solution 00 hours as Medical needed for Branch Wheezing or Shortness of Breath. albuterol 3-0 Yes [id number] 2.5mg Inhale 3 [facility] 2.5 mg /3 4-28 mL every 8 [facility] of mL (0.083 00:00: (eight) [place] %) 00 hours as Medical nebulizer needed for Bran ch solution Wheezing or Shortness of Breath. atorvastati 2022-0 Yes [id number] 20mg Take 1 [facility] n 20 mg 4-28 tablet by ity of tablet 00:00: mouth at [place] 00 bedtime. Medical Branch losartan 50 2022-0 Yes [id number] 25mg Take 0.5 [facility] mg tablet 4-28 tablets by ity of 00:00: mouth [place] 00 every day Medical at [address] [place] (noon). ipratropium 3-0 Yes [id number] .5mg Inhale 2.5 [facility] 0.02 % 4-28 mL every 6 ity of nebulizer 00:00: (six) [place] solution 00 hours as Medical needed for Branch Wheezing or Shortness of Breath. albuterol 3-0 Yes [id number] 2.5mg Inhale 3 [facility] 2.5 mg /3 4-28 mL every 8 [facility] of mL (0.083 00:00: (eight) [place] %) 00 hours as Medical nebulizer needed for Bran ch solution Wheezing or Shortness of Breath. atorvastati 3-0 Yes [id number] 20mg Take 1 [facility] n 20 mg 4-28 tablet by ity of tablet 00:00: mouth at [place] 00 bedtime. Medical Branch losartan 50 2022-0 Yes [id number] 25mg Take 0.5 [facility] mg tablet 4-28 tablets by ity of 00:00: mouth [place] 00 every day Medical at [address] [place] (noon). ipratropium 2023-0 Yes [id number] .5mg Inhale 2.5 [facility] 0.02 % 4-28 mL every 6 ity of nebulizer 00:00: (six) [place] solution 00 hours as Medical needed for Branch Wheezing or Shortness of Breath. albuterol 2023-0 Yes [id number] 2.5mg Inhale 3 [facility] 2.5 mg /3 4-28 mL every 8 [facility] of mL (0.083 00:00: (eight) [place] %) 00 hours as Medical nebulizer needed for Bran ch solution Wheezing or Shortness of Breath. atorvastati 3-0 Yes [id number] 20mg Take 1 [facility] n 20 mg 4-28 tablet by ity of tablet 00:00: mouth at [place] 00 bedtime. Medical Branch losartan 50 2022-0 Yes [id number] 25mg Take 0.5 [facility] mg tablet 4-28 tablets by ity of 00:00: mouth [place] 00 every day Medical at [address] [facility] (noon). ipratropium 3-0 Yes [id number] .5mg Inhale 2.5 [facility] 0.02 % 4-28 mL every 6 ity of nebulizer 00:00: (six) [place] solution 00 hours as Medical needed for Branch Wheezing or Shortness of Breath. albuterol 3-0 Yes [id number] 2.5mg Inhale 3 [facility] 2.5 mg /3 4-28 mL every 8 [facility] of mL (0.083 00:00: (eight) [place] %) 00 hours as Medical nebulizer needed for Bran ch solution Wheezing or Shortness of Breath. atorvastati 3-0 Yes [id number] 20mg Take 1 [facility] n 20 mg 4-28 tablet by ity of tablet 00:00: mouth at [place] 00 bedtime. Medical Branch losartan 50 2022-0 Yes [id number] 25mg Take 0.5 [facility] mg tablet 4-28 tablets by ity of 00:00: mouth [place] 00 every day Medical at [address] [facility] (noon). ipratropium 2023-0 Yes [id number] .5mg Inhale 2.5 [facility] 0.02 % 4-28 mL every 6 ity of nebulizer 00:00: (six) [place] solution 00 hours as Medical needed for Branch Wheezing or Shortness of Breath. albuterol 2023-0 Yes [id number] 2.5mg Inhale 3 [facility] 2.5 mg /3 4-28 mL every 8 [facility] of mL (0.083 00:00: (eight) [place] %) 00 hours as Medical nebulizer needed for Bran ch solution Wheezing or Shortness of Breath. atorvastati 2022-0 Yes [id number] 20mg Take 1 [facility] n 20 mg 4-28 tablet by [facility] of tablet 00:00: mouth at [place] 00 bedtime. Medical Branch losartan 50 2022-0 Yes [id number] 25mg Take 0.5 [facility] mg tablet 4-28 tablets by ity of 00:00: mouth [place] 00 every day Medical at [address] [place] [address] (noon). atorvastati 2022-0 Yes [id number] 20mg Take 1 [facility] n 20 mg 4-28 tablet by [facility] of tablet 00:00: mouth at [place] 00 bedtime. Medical Branch losartan 50 2022-0 Yes [id number] 25mg Take 0.5 [facility] mg tablet 4-28 tablets by ity of 00:00: mouth [place] 00 every day Medical at [address] [place] [address] (noon). atorvastati 2022-0 Yes [id number] 20mg Take 1 [facility] n 20 mg 4-28 tablet by ity of tablet 00:00: mouth at [place] 00 bedtime. Medical [facility] losartan 50 2022-0 Yes [id number] 25mg Take 0.5 [facility] mg tablet 4-28 tablets by ity of 00:00: mouth [place] 00 every day Medical at [address] [place] [address] (noon). atorvastati 2022-0 Yes [id number] 20mg Take 1 [facility] n 20 mg 4-28 tablet by ity of tablet 00:00: mouth at [place] 00 bedtime. Medical Branch losartan 50 2022-0 Yes [id number] 25mg Take 0.5 [facility] mg tablet 4-28 tablets by ity of 00:00: mouth [place] 00 every day Medical at [address] [place] [address] (noon). atorvastati 2022-0 Yes [id number] 20mg Take 1 [facility] n 20 mg 4-28 tablet by it[facility] of tablet 00:00: mouth at [place] 00 bedtime. Medical Branch losartan 50 2022-0 Yes [id number] 25mg Take 0.5 [facility] mg tablet 4-28 tablets by ity of 00:00: mouth [place] 00 every day Medical at [address] [place] [address] (noon). atorvastati 2022-0 Yes [id number] 20mg Take 1 [facility] n 20 mg 4-28 tablet by ity of tablet 00:00: mouth at [place] 00 bedtime. Medical Branch losartan 50 2022-0 Yes [id number] 25mg Take 0.5 [facility] mg tablet 4-28 tablets by ity of 00:00: mouth [place] 00 every day Medical at [address] [facility] (noon). atorvastati 2022-0 Yes [id number] 20mg Take 1 [facility] n 20 mg 4-28 tablet by [facility] of tablet 00:00: mouth at [place] 00 bedtime. Medical Branch losartan 50 2022-0 Yes [id number] 25mg Take 0.5 [facility] mg tablet 4-28 tablets by [facility] of 00:00: mouth [place] 00 every day Medical at [address] [facility] (noon). ipratropium 2022-0 2022- No [id number] .5mg Inhale 2.5 [facility] 0.02 % 4-28 06-27 mL every 6 ity of nebulizer 00:00: 00:00 (six) [place] solution 00 :00 hours as Medical needed for Branch Wheezing or Shortness of Breath. albuterol 2022-2022- No [id number] 2.5mg Inhale 3 [facility] 2.5 mg /3 4-28 06-27 mL every 8 [facility] of mL (0.083 00:00: 00:00 (eight) [place] 00 :00 hours as Medical nebulizer needed for Bran ch solution Wheezing or Shortness of Breath. ipratropium 2022-0 2022- No [id number] .5mg Inhale 2.5 [facility] 0.02 % 4-28 06-27 mL every 6 ity of nebulizer 00:00: 00:00 (six) [place] solution 00 :00 hours as Medical needed for Branch Wheezing or Shortness of Breath. albuterol 2022-0 2022- No [id number] 2.5mg Inhale 3 [facility] 2.5 mg /3 4-28 06-27 mL every 8 [facility] of mL (0.083 00:00: 00:00 (eight) [place] 00 :00 hours as Medical nebulizer needed for Bran ch solution Wheezing or Shortness of Breath. ipratropium 2022-0 2022- No [id number] .5mg Inhale 2.5 [facility] 0.02 % 4-28 06-27 mL every 6 ity of nebulizer 00:00: 00:00 (six) [place] solution 00 :00 hours as Medical needed for Branch Wheezing or Shortness of Breath. albuterol 2022- No [id number] 2.5mg Inhale 3 [facility] 2.5 mg /3 4-28 06-27 mL every 8 [facility] of mL (0.083 00:00: 00:00 (eight) [place] 00 :00 hours as Medical nebulizer needed for Bran ch solution Wheezing or Shortness of Breath. furosemide 2022-2022- No [id number] 40mg Take 1 [facility] 40 mg 4-28 05-09 tablet by [facility] of tablet 00:00: 00:00 mouth [place] 00 :00 every Medical morning Branch and evening. furosemide 2022-0 Yes 40mg Take 1 [facility] 40 mg 4-27 tablet by [facility] of tablet 00:00: mouth [place] 00 every Medical morning Branch and evening. furosemide 2022-0 Yes 40mg Take 1 [facility] rs 40 mg 4-27 tablet by [facility] of tablet 00:00: mouth [place] 00 every Medical morning Branch and evening. furosemide 2022-0 2023- No 40mg Take 1 [facility] ers 40 mg 4-27 04-28 tablet by ity of tablet 00:00: 00:00 mouth [place] 00 :00 every Medical morning Branch and evening. furosemide 2022-0 2022- No 40mg Take 1 [facility] ers 40 mg 4-27 04-28 tablet by [facility] of tablet 00:00: 00:00 mouth [place] 00 :00 every Medical morning Branch and evening. furosemide 2022-0 2022- No 40mg Take 1 [...] mouth [place] 00 every day Medical at [address] [place] [address] (noon). losartan 50 2023-0 Yes 25mg Take 0.5 [facility] mg tablet 4-12 tablets by [facility]y of 00:00: mouth [place] 00 every day Medical at [address] [place] [address] (noon). losartan 50 2023-0 Yes 25mg Take 0.5 [facility] mg tablet 4-12 tablets by [facility] of 00:00: mouth [place] 00 every day Medical at [address] [place] [address] (noon). losartan 50 2023-0 Yes 25mg Take 0.5 [facility] mg tablet 4-12 tablets by [facility] of 00:00: mouth [place] 00 every day Medical at [address] [place] [address] (noon). losartan 50 2023-0 Yes 25mg Take 0.5 [facility] mg tablet 4-12 tablets by [facility] of 00:00: mouth [place] 00 every day Medical at [address] [place] [address] (noon). losartan 50 2023-0 Yes 25mg Take 0.5 [facility] mg tablet 4-12 tablets by [facility] of 00:00: mouth [place] 00 every day Medical at [address] [place] [address] (noon). losartan 50 2023-0 Yes 25mg Take 0.5 [facility] mg tablet 4-12 tablets by [facility] of 00:00: mouth [place] 00 every day Medical at [address] [place] [address] (noon). losartan 50 2023-0 Yes 25mg Take 0.5 [facility] mg tablet 4-12 tablets by [facility] of 00:00: mouth [place] 00 every day Medical at [address] [place] [address] (noon). losartan 50 2023-0 2023- No 25mg Take 0.5 [facility] mg tablet 4-12 04-28 tablets by [facility]y of 00:00: 00:00 mouth [place] 00 :00 every day Medical at [address] [place] [address] (noon). losartan 50 2023-0 2023- No 25mg Take 0.5 [facility] n[facility] mg tablet 4-12 04-28 tablets by ity of 00:00: 00:00 mouth [place] 00 :00 every day Medical at [address] [place] [address] (noon). losartan 50 2023-0 2023- No 25mg Take 0.5 [facility] n[facility] mg tablet 4-12 04-28 tablets by ity of 00:00: 00:00 mouth [place] 00 :00 every day Medical at [address] [place] [address] (noon). losartan 50 2022-0 3- No 50mg Take 1 [facility] vers mg tablet 05-25-12 tablet by [facility] of 00:00: 00:00 mouth [place] 00 :00 daily. Medical Branch losartan 50 3-0 3- No 25mg Take 0.5 [facility] nivers mg tablet 4-01 16-12 tablets by [facility] of 00:00: 00:00 mouth [place] 00 :00 daily. Medical Branch losartan 50 2022-0 2023- No 50mg Take 1 [facility] vers mg tablet 05-25-12 tablet by [facility] of 00:00: 00:00 mouth [place] 00 :00 daily. [facility] losartan 50 2022-0 3- No 25mg Take 0.5 [facility] nivers mg tablet 4-12 tablets by [facility]y of 00:00: 00:00 mouth [place] 00 :00 daily. Medical Branch furosemide 2022-0 Yes [id number] 40mg Take 1 [facility] 40 mg 4-04 tablet by [facility] of tablet 00:00: mouth [place] 00 daily. Medical Branch terbinafine 2022-0 Yes [id number] 250mg Take 1 [facility] HCL 250 mg 4-04 tablet by [facility] of tablet 00:00: mouth [place] 00 daily. Medical Branch benzonatate 2022-0 Yes [id number] 200mg Take 1 [facility] 200 mg 4-04 capsule by [facility] of capsule 00:00: mouth 3 [place] 00 (three) Medical times Branch daily as needed for Cough. furosemide 2022-0 Yes [id number] 40mg Take 1 [facility] 40 mg 4-04 tablet by [facility] of tablet 00:00: mouth [place] 00 daily. Medical Branch terbinafine 2022-0 Yes [id number] 250mg Take 1 [facility] HCL 250 mg 4-04 tablet by [facility] of tablet 00:00: mouth [place] 00 daily. Medical Branch benzonatate 2022-0 Yes [id number] 200mg Take 1 [facility] 200 mg 4-04 capsule by [facility] of capsule 00:00: mouth 3 [place] 00 (three) Medical times [place] daily as needed for Cough. furosemide 2022-0 Yes [id number] 40mg Take 1 [facility] 40 mg 4-04 tablet by [facility] of tablet 00:00: mouth [place] 00 daily. Medical [facility] terbinafine 2022-0 Yes [id number] 250mg Take 1 [facility] HCL 250 mg 4-04 tablet by [facility] of tablet 00:00: mouth [place] 00 daily. Medical Branch benzonatate 2022-0 Yes [id number] 200mg Take 1 [facility] 200 mg 4-04 capsule by [facility] of capsule 00:00: mouth 3 (three) Medical times Branch daily as needed for Cough. furosemide 2022-0 Yes [id number] 40mg Take 1 [facility] 40 mg 4-04 tablet by [facility] of tablet 00:00: mouth [place] 00 daily. Medical [facility] terbinafine 2022-0 Yes [id number] 250mg Take 1 [facility] HCL 250 mg 4-04 tablet by [facility] of tablet 00:00: mouth [place] 00 daily. Medical Branch benzonatate 2022-0 Yes [id number] 200mg Take 1 [facility] 200 mg 4-04 capsule by [facility] of capsule 00:00: mouth 3 (three) Medical times Branch daily as needed for Cough. furosemide 2022-0 Yes [id number] 40mg Take 1 [facility] 40 mg 4-04 tablet by ity of tablet 00:00: mouth [place] 00 daily. [facility] terbinafine 2022-0 Yes [id number] 250mg Take 1 [facility] 250 mg 4-04 tablet by [facility] of tablet 00:00: mouth [place] 00 daily. [facility] benzonatate 2022-0 Yes [id number] 200mg Take 1 [facility] 200 mg 4-04 capsule by [facility] of capsule 00:00: mouth 3 (three) Medical times Branch daily as needed for Cough. furosemide 2022-0 Yes [id number] 40mg Take 1 [facility] 40 mg 4-04 tablet by [facility] of tablet 00:00: mouth [place] 00 daily. [facility] terbinafine 2022-0 Yes [id number] 250mg Take 1 [facility] HCL 250 mg 4-04 tablet by [facility] of tablet 00:00: mouth [place] 00 daily. [facility] benzonatate 2022-0 Yes [id number] 200mg Take 1 [facility] 200 mg 4-04 capsule by [facility] of capsule 00:00: mouth 3 (three) Medical times Branch daily as needed for Cough. furosemide 2022-0 Yes [id number] 40mg Take 1 [facility] 40 mg 4-04 tablet by [facility] of tablet 00:00: mouth [place] 00 daily. [facility] terbinafine 2022-0 Yes [id number] 250mg Take 1 [facility] HCL 250 mg 4-04 tablet by [facility] of tablet 00:00: mouth [place] 00 daily. [facility] benzonatate 2022-0 Yes [id number] 200mg Take 1 [facility] 200 mg 4-04 capsule by [facility] of capsule 00:00: mouth 3 (three) Medical times Branch daily as needed for Cough. furosemide 2022-0 Yes [id number] 40mg Take 1 [facility] 40 mg 4-04 tablet by [facility] of tablet 00:00: mouth [place] 00 daily. [facility] terbinafine 2022-0 Yes [id number] 250mg Take 1 [facility] HCL 250 mg 4-04 tablet by [facility] of tablet 00:00: mouth [place] 00 daily. [facility] benzonatate 2022-0 Yes [id number] 200mg Take 1 [facility] 200 mg 4-04 capsule by [facility] of capsule 00:00: mouth 3 (three) Medical times Branch daily as needed for Cough. furosemide 2022-0 Yes [id number] 40mg Take 1 [facility] 40 mg 4-04 tablet by [facility] of tablet 00:00: mouth [place] 00 daily. [facility] terbinafine 2022-0 Yes [id number] 250mg Take 1 [facility] HCL 250 mg 4-04 tablet by [facility] of tablet 00:00: mouth [place] 00 daily. [facility] benzonatate 2022-0 Yes [id number] 200mg Take 1 [facility] 200 mg 4-04 capsule by [facility] of capsule 00:00: mouth (three) Medical times Branch daily as needed for Cough. furosemide 2022-0 Yes [id number] 40mg Take 1 [facility] 40 mg 4-04 tablet by [facility] of tablet 00:00: mouth [place] 00 daily. [facility] terbinafine 2022-0 Yes [id number] 250mg Take 1 [facility] HCL 250 mg 4-04 tablet by [facility] of tablet 00:00: mouth [place] 00 daily. [facility] benzonatate 2022-0 Yes [id number] 200mg Take 1 [facility] 200 mg 4-04 capsule by [facility] of capsule 00:00: mouth 3 (three) Medical times Branch daily as needed for Cough. terbinafine 2022-0 Yes [id number] 250mg Take 1 [facility] HCL 250 mg 4-04 tablet by [facility] of tablet 00:00: mouth [place] 00 daily. [facility] benzonatate 2022-0 Yes [id number] 200mg Take 1 [facility] 200 mg 4-04 capsule by [facility] of capsule 00:00: mouth 3 (three) Medical times Branch daily as needed for Cough. terbinafine 2023-0 Yes [id number] 250mg Take 1 [facility] HCL 250 mg 4-04 tablet by [facility] of tablet 00:00: mouth [place] 00 daily. [facility] benzonatate 2023-0 Yes [id number] 200mg Take 1 [facility] 200 mg 4-04 capsule by [facility] of capsule 00:00: mouth 3 (three) Medical times Branch daily as needed for Cough. terbinafine 2023-0 Yes [id number] 250mg Take 1 [facility] HCL 250 mg 4-04 tablet by [facility] of tablet 00:00: mouth [place] 00 daily. [facility] benzonatate 2023-0 Yes [id number] 200mg Take 1 [facility] 200 mg 4-04 capsule by [facility] of capsule 00:00: mouth (three) Medical times Branch daily as needed for Cough. terbinafine 2023-0 Yes [id number] 250mg Take 1 [facility] HCL 250 mg 4-04 tablet by [facility] of tablet 00:00: mouth 00 daily. [facility] benzonatate 3-0 Yes [id number] 200mg Take 1 [facility] 200 mg 4-04 capsule by [facility] of capsule 00:00: mouth (three) Medical times Branch daily as needed for Cough. terbinafine 2023-0 Yes [id number] 250mg Take 1 [facility] HCL 250 mg 4-04 tablet by [facility] of tablet 00:00: mouth 00 daily. [facility] benzonatate 2023-0 Yes [id number] 200mg Take 1 [facility] 200 mg 4-04 capsule by [facility] of capsule 00:00: mouth (three) Medical times Branch daily as needed for Cough. terbinafine 2023-0 Yes [id number] 250mg Take 1 [facility] HCL 250 mg 4-04 tablet by [facility] of tablet 00:00: mouth 00 daily. [facility] benzonatate 2023-0 Yes [id number] 200mg Take 1 [facility] 200 mg 4-04 capsule by [facility] of capsule 00:00: mouth (three) Medical times Branch daily as needed for Cough. terbinafine 2023-0 Yes [id number] 250mg Take 1 [facility] HCL 250 mg 4-04 tablet by [facility] of tablet 00:00: mouth [place] 00 daily. [facility] benzonatate 2023-0 Yes [id number] 200mg Take 1 [facility] 200 mg 4-04 capsule by [facility] of capsule 00:00: mouth 3 (three) Medical times Branch daily as needed for Cough. terbinafine 3-0 Yes [id number] 250mg Take 1 [facility] HCL 250 mg 4-04 tablet by [facility] of tablet 00:00: mouth [place] 00 daily. [facility] benzonatate 3-0 Yes [id number] 200mg Take 1 [facility] 200 mg 4-04 capsule by [facility] of capsule 00:00: mouth 3 (three) Medical times Branch daily as needed for Cough. terbinafine 3-0 Yes [id number] 250mg Take 1 [facility] HCL 250 mg 4-04 tablet by [facility] of tablet 00:00: mouth 00 daily. [facility] benzonatate 2022-0 Yes [id number] 200mg Take 1 [facility] 200 mg 4-04 capsule by [facility] of capsule 00:00: mouth (three) Medical times Branch daily as needed for Cough. terbinafine 3-0 Yes [id number] 250mg Take 1 [facility] H[facility] 250 mg 4-04 tablet by [facility] of tablet 00:00: mouth 00 daily. [facility] benzonatate 3-0 Yes [id number] 200mg Take 1 [facility] 200 mg 4-04 capsule by [facility] of capsule 00:00: mouth (three) Medical times Branch daily as needed for Cough. terbinafine 3-0 Yes [id number] 250mg Take 1 [facility] HCL 250 mg 4-04 tablet by [facility] of tablet 00:00: mouth 00 daily. [facility] benzonatate 3-0 Yes [id number] 200mg Take 1 [facility] 200 mg 4-04 capsule by [facility] of capsule 00:00: mouth (three) Medical times Branch daily as needed for Cough. terbinafine 2023-0 Yes [id number] 250mg Take 1 [facility] HCL 250 mg 4-04 tablet by [facility] of tablet 00:00: mouth [place] 00 daily. [facility] benzonatate 3-0 Yes [id number] 200mg Take 1 [facility] 200 mg 4-04 capsule by [facility] of capsule 00:00: mouth 3 (three) Medical times Branch daily as needed for Cough. terbinafine 2023-0 Yes [id number] 250mg Take 1 [facility] HCL 250 mg 4-04 tablet by [facility] of tablet 00:00: mouth [place] 00 daily. [facility] benzonatate 3-0 Yes [id number] 200mg Take 1 [facility] 200 mg 4-04 capsule by [facility] of capsule 00:00: mouth 3 (three) Medical times Branch daily as needed for Cough. terbinafine 2023-0 Yes [id number] 250mg Take 1 [facility] HCL 250 mg 4-04 tablet by [facility] of tablet 00:00: mouth 00 daily. [facility] benzonatate 3-0 Yes [id number] 200mg Take 1 [facility] 200 mg 4-04 capsule by [facility] of capsule 00:00: mouth 3 (three) Medical times Branch daily as needed for Cough. terbinafine 3-0 Yes [id number] 250mg Take 1 [facility] HCL 250 mg 4-04 tablet by [facility] of tablet 00:00: mouth 00 daily. [facility] benzonatate 3-0 Yes [id number] 200mg Take 1 [facility] 200 mg 4-04 capsule by [facility] of capsule 00:00: mouth (three) Medical times Branch daily as needed for Cough. terbinafine 3-0 Yes [id number] 250mg Take 1 [facility] HCL 250 mg 4-04 tablet by [facility] of tablet 00:00: mouth 00 daily. [facility] benzonatate 3-0 Yes [id number] 200mg Take 1 [facility] 200 mg 4-04 capsule by [facility] of capsule 00:00: mouth (three) Medical times Branch daily as needed for Cough. terbinafine 2023-0 Yes [id number] 250mg Take 1 [facility] HCL 250 mg 4-04 tablet by [facility] of tablet 00:00: mouth [place] 00 daily. [facility] benzonatate 3-0 Yes [id number] 200mg Take 1 [facility] 200 mg 4-04 capsule by [facility] of capsule 00:00: mouth (three) Medical times Branch daily as needed for Cough. terbinafine 2023-0 Yes [id number] 250mg Take 1 [facility] HCL 250 mg 4-04 tablet by [facility] of tablet 00:00: mouth [place] 00 daily. [facility] benzonatate 2023-0 Yes [id number] 200mg Take 1 [facility] 200 mg 4-04 capsule by [facility] of capsule 00:00: mouth 3 (three) Medical times Branch daily as needed for Cough. terbinafine 2023-0 Yes [id number] 250mg Take 1 [facility] HCL 250 mg 4-04 tablet by [facility] of tablet 00:00: mouth 00 daily. [facility] benzonatate 2023-0 Yes [id number] 200mg Take 1 [facility] 200 mg 4-04 capsule by [facility] of capsule 00:00: mouth (three) Medical times Branch daily as needed for Cough. terbinafine 2023-0 Yes [id number] 250mg Take 1 [facility] HCL 250 mg 4-04 tablet by [facility] of tablet 00:00: mouth 00 daily. [facility] benzonatate 3-0 Yes [id number] 200mg Take 1 [facility] 200 mg 4-04 capsule by [facility] of capsule 00:00: mouth (three) Medical times Branch daily as needed for Cough. terbinafine 3-0 Yes [id number] 250mg Take 1 [facility] HCL 250 mg 4-04 tablet by [facility] of tablet 00:00: mouth 00 daily. [facility] benzonatate 3-0 Yes [id number] 200mg Take 1 [facility] 200 mg 4-04 capsule by [facility] of capsule 00:00: mouth (three) Medical times Branch daily as needed for Cough. terbinafine 3-0 Yes [id number] 250mg Take 1 [facility] HCL 250 mg 4-04 tablet by [facility] of tablet 00:00: mouth 00 daily. [facility] benzonatate 3-0 Yes [id number] 200mg Take 1 [facility] 200 mg 4-04 capsule by [facility] of capsule 00:00: mouth (three) Medical times Branch daily as needed for Cough. terbinafine 2023-0 Yes [id number] 250mg Take 1 [facility] 250 mg 4-04 tablet by [facility] of tablet 00:00: mouth 00 daily. [facility] benzonatate 2023-0 Yes [id number] 200mg Take 1 [facility] 200 mg 4-04 capsule by [facility] of capsule 00:00: mouth 3 (three) Medical times Branch daily as needed for Cough. terbinafine 2023-0 Yes [id number] 250mg Take 1 [facility] HCL 250 mg 4-04 tablet by [facility] of tablet 00:00: mouth [place] 00 daily. [facility] benzonatate 2023-0 Yes [id number] 200mg Take 1 [facility] 200 mg 4-04 capsule by [facility] of capsule 00:00: mouth 3 (three) Medical times Branch daily as needed for Cough. terbinafine 3-0 Yes [id number] 250mg Take 1 [facility] HCL 250 mg 4-04 tablet by [facility] of tablet 00:00: mouth [place] 00 daily. [facility] benzonatate 2023-0 Yes [id number] 200mg Take 1 [facility] 200 mg 4-04 capsule by [facility] of capsule 00:00: mouth 3 (three) Medical times Branch daily as needed for Cough. terbinafine 3-0 Yes [id number] 250mg Take 1 [facility] HCL 250 mg 4-04 tablet by [facility] of tablet 00:00: mouth [place] 00 daily. [facility] benzonatate 3-0 Yes [id number] 200mg Take 1 [facility] 200 mg 4-04 capsule by [facility] of capsule 00:00: mouth (three) Medical times Branch daily as needed for Cough. terbinafine 3-0 Yes [id number] 250mg Take 1 [facility] HCL 250 mg 4-04 tablet by [facility] of tablet 00:00: mouth 00 daily. [facility] benzonatate 3-0 Yes [id number] 200mg Take 1 [facility] 200 mg 4-04 capsule by [facility] of capsule 00:00: mouth (three) Medical times Branch daily as needed for Cough. terbinafine 3-0 Yes [id number] 250mg Take 1 [facility] HCL 250 mg 4-04 tablet by [facility] of tablet 00:00: mouth 00 daily. [facility] benzonatate 3-0 Yes [id number] 200mg Take 1 [facility] 200 mg 4-04 capsule by [facility] of capsule 00:00: mouth (three) Medical times Branch daily as needed for Cough. terbinafine 2023-0 Yes [id number] 250mg Take 1 [facility] H[facility] 250 mg 4-04 tablet by [facility] of tablet 00:00: mouth [place] 00 daily. [facility] benzonatate 2023-0 Yes [id number] 200mg Take 1 [facility] 200 mg 4-04 capsule by [facility] of capsule 00:00: mouth 3 (three) Medical times Branch daily as needed for Cough. terbinafine 2023-0 Yes [id number] 250mg Take 1 [facility] H[facility] 250 mg 4-04 tablet by [facility] of tablet 00:00: mouth [place] 00 daily. [facility] benzonatate 3-0 Yes [id number] 200mg Take 1 [facility] 200 mg 4-04 capsule by [facility] of capsule 00:00: mouth 3 (three) Medical times Branch daily as needed for Cough. terbinafine 2023-0 Yes [id number] 250mg Take 1 [facility] H[facility] 250 mg 4-04 tablet by [facility] of tablet 00:00: mouth [place] 00 daily. [facility] benzonatate 3-0 Yes [id number] 200mg Take 1 [facility] 200 mg 4-04 capsule by [facility] of capsule 00:00: mouth 3 (three) Medical times Branch daily as needed for Cough. terbinafine 3-0 Yes [id number] 250mg Take 1 [facility] H[facility] 250 mg 4-04 tablet by [facility] of tablet 00:00: mouth 00 daily. [facility] benzonatate 3-0 Yes [id number] 200mg Take 1 [facility] 200 mg 4-04 capsule by [facility] of capsule 00:00: mouth (three) Medical times Branch daily as needed for Cough. terbinafine 3-0 Yes [id number] 250mg Take 1 [facility] HCL 250 mg 4-04 tablet by [facility] of tablet 00:00: mouth 00 daily. [facility] benzonatate 3-0 Yes [id number] 200mg Take 1 [facility] 200 mg 4-04 capsule by [facility] of capsule 00:00: mouth (three) Medical times Branch daily as needed for Cough. terbinafine 2023-0 Yes [id number] 250mg Take 1 [facility] HCL 250 mg 4-04 tablet by [facility] of tablet 00:00: mouth [place] 00 daily. [facility] benzonatate 3-0 Yes [id number] 200mg Take 1 [facility] 200 mg 4-04 capsule by [facility] of capsule 00:00: mouth (three) Medical times Branch daily as needed for Cough. terbinafine 2023-0 Yes [id number] 250mg Take 1 [facility] HCL 250 mg 4-04 tablet by [facility] of tablet 00:00: mouth [place] 00 daily. [facility] benzonatate 2023-0 Yes [id number] 200mg Take 1 [facility] 200 mg 4-04 capsule by [facility] of capsule 00:00: mouth 3 [place] 00 (three) Medical times Branch daily as needed for Cough. terbinafine 2023-0 Yes [id number] 250mg Take 1 [facility] HCL 250 mg 4-04 tablet by [facility] of tablet 00:00: mouth [place] 00 daily. [facility] benzonatate 3-0 Yes [id number] 200mg Take 1 [facility] 200 mg 4-04 capsule by [facility] of capsule 00:00: mouth 3 [place] 00 (three) Medical times Branch daily as needed for Cough. terbinafine 2023-0 Yes [id number] 250mg Take 1 [facility] HCL 250 mg 4-04 tablet by [facility] of tablet 00:00: mouth [place] 00 daily. [facility] benzonatate 3-0 Yes [id number] 200mg Take 1 [facility] 200 mg 4-04 capsule by [facility] of capsule 00:00: mouth 3 [place] 00 (three) Medical times Branch daily as needed for Cough. terbinafine 3-0 3- No [id number] 250mg Take 1 [facility] HCL 250 mg 4-04 06-27 tablet by [facility] of tablet 00:00: 00:00 mouth [place] 00 :00 daily. [facility] benzonatate 3-0 3- No [id number] 200mg Take 1 [facility] 200 mg 4-04 06-27 capsule by [facility] of capsule 00:00: 00:00 mouth 3 [place] 00 :00 (three) Medical times Branch daily as needed for Cough. terbinafine 3-0 3- No [id number] 250mg Take 1 [facility] HCL 250 mg 4-04 06-27 tablet by [facility] of tablet 00:00: 00:00 mouth [place] 00 :00 daily. [facility] benzonatate 2023-0 2023- No [id number] 200mg Take 1 [facility] 200 mg 4-04 06-27 capsule by [facility] of capsule 00:00: 00:00 mouth 3 [place] 00 :00 (three) Medical times Branch daily as needed for Cough. terbinafine 2023-0 2023- No [id number] 250mg Take 1 [facility] HCL 250 mg 4-04 06-27 tablet by [facility] of tablet 00:00: 00:00 mouth [place] 00 :00 daily. [facility] benzonatate 2023-0 2023- No [id number] 200mg Take 1 [facility] 200 mg 4-04 06-27 capsule by [facility] of capsule 00:00: 00:00 mouth 3 [place] 00 :00 (three) Medical times Branch daily as needed for Cough. furosemide 2022- No [id number] 40mg Take 1 [facility] 40 mg -05 17- tablet by [facility] of tablet 00:00: 00:00 mouth [place] 00 :00 daily. [facility] furosemide 2022- No [id number] 40mg Take 1 [facility] 40 mg -05 [...] THEN ONE TABLET DAILY losartan 25 Yes [id number] 25mg Take 1 [facility] mg tablet 3-13 tablet by [facility] o f 00:00: mouth [place] 00 daily. [facility] losartan 25 Yes [id number] 25mg Take 1 [facility] mg tablet 3-13 tablet by [facility] o f 00:00: mouth [place] 00 daily. [facility] losartan 25 Yes [id number] 25mg Take 1 [facility] mg tablet 3-13 tablet by [facility] o f 00:00: mouth [place] 00 daily. [facility] losartan 25 Yes [id number] 25mg Take 1 [facility] mg tablet 3-13 tablet by [facility] o f 00:00: mouth [place] 00 daily. [facility] losartan 25 Yes [id number] 25mg Take 1 [facility] mg tablet 3-13 tablet by [facility] o f 00:00: mouth [place] 00 daily. [facility] losartan 25 2022- No [id number] 25mg Take 1 [facility] mg tablet 3-26 05-12 tablet by [facility] of 00:00: 00:00 mouth [place] 00 :00 daily. [facility] losartan 25 2022- No [id number] 25mg Take 1 [facility] mg tablet 3-26 05-12 tablet by [facility] of 00:00: 00:00 mouth [place] 00 :00 daily. [facility] cefUROXime Yes [id number] 250mg Take 1 [facility] 250 mg 2-14 tablet by [facility] of tablet 00:00: mouth [place] (two) Medical times Branch daily. cefUROXime 2023-0 Yes [id number] 250mg Take 1 [facility] 250 mg 2-14 tablet by [facility] of tablet 00:00: mouth 2 [place] 00 (two) Medical times Branch daily. cefUROXime 2023-0 Yes [id number] 250mg Take 1 [facility] 250 mg 2-14 tablet by [facility] of tablet 00:00: mouth [address] [place] [address] (two) Medical times Branch daily. cefUROXime 2023-0 Yes [id number] 250mg Take 1 [facility] 250 mg 2-14 tablet by [facility] of tablet 00:00: mouth [address] [place] [address] (two) Medical times Branch daily. cefUROXime 2023-0 Yes [id number] 250mg Take 1 [facility] 250 mg 2-14 tablet by [facility] of tablet 00:00: mouth [address] [place] [address] (two) Medical times Branch daily. cefUROXime 2023-0 Yes [id number] 250mg Take 1 [facility] 250 mg 2-14 tablet by [facility] of tablet 00:00: [address] (two) Medical times Branch daily. cefUROXime 2023-0 Yes [id number] 250mg Take 1 [facility] 250 mg 2-14 tablet by [facility] of tablet 00:00: [address] (two) Medical times Branch daily. cefUROXime 2023-0 Yes [id number] 250mg Take 1 [facility] 250 mg 2-14 tablet by [facility] of tablet 00:00: [address] (two) Medical times Branch daily. cefUROXime 2023-0 2023- No [id number] 250mg Take 1 [facility] 250 mg 2-14 04-04 tablet by [facility] of tablet 00:00: 00:00 [facility] 2 [place] 00 :00 (two) Medical times Branch daily. cefUROXime 2023-0 2023- No [id number] 250mg Take 1 [facility] 250 mg 2-14 04-04 tablet by [facility] of tablet 00:00: 00:00 mouth 2 [place] 00 :00 (two) Medical times Branch daily. cefdinir 2023-0 Yes [id number] 300mg Take 1 [facility] briana 300 mg 2-09 capsule by [facility] of capsule 00:00: mouth [place] 00 every 12 Medical (twelve) Branch hours. cefdinir 2023-0 Yes [id number] 300mg Take 1 [facility] briana 300 mg 2-09 capsule by [facility] of capsule 00:00: mouth [place] 00 every 12 Medical (twelve) Branch hours. ferrous 2023-0 Yes [id number] 324mg Take 1 Un briana sulfate 324 1-31 tablet by it[facility] of mg (65 mg 00:00: mouth [place] iron) EC 00 daily with Medic al tablet breakfast. Branch ferrous 3-0 Yes [id number] 324mg Take 1 [facility] briana sulfate 324 1-31 tablet by ity of mg (65 mg 00:00: mouth [place] iron) EC 00 daily with Medic al tablet breakfast. Branch ferrous 3-0 Yes [id number] 324mg Take 1 [facility] briana sulfate 324 1-31 tablet by ity of mg (65 mg 00:00: mouth [place] iron) EC 00 daily with Medic al tablet breakfast. Branch ferrous 3-0 Yes [id number] 324mg Take 1 Un briana sulfate 324 1-31 tablet by ity of mg (65 mg 00:00: mouth [place] iron) EC 00 daily with Medic al tablet breakfast. Branch ferrous 3-0 Yes [id number] 324mg Take 1 Un briana sulfate 324 1-31 tablet by ity of mg (65 mg 00:00: mouth [place] iron) EC 00 daily with Medic al tablet breakfast. Branch ferrous 3-0 Yes [id number] 324mg Take 1 Un briana sulfate 324 1-31 tablet by ity of mg (65 mg 00:00: mouth [place] iron) EC 00 daily with Medic al tablet breakfast. Branch ferrous 3-0 Yes [id number] 324mg Take 1 Un briana sulfate 324 1-31 tablet by ity of mg (65 mg 00:00: mouth [place] iron) EC 00 daily with Medic al tablet breakfast. Branch ferrous 3-0 Yes [id number] 324mg Take 1 Un briana sulfate 324 1-31 tablet by ity of mg (65 mg 00:00: mouth [place] iron) EC 00 daily with Medic al tablet breakfast. Branch ferrous 3-0 Yes [id number] 324mg Take 1 Un briana sulfate 324 1-31 tablet by ity of mg (65 mg 00:00: mouth [place] iron) EC 00 daily with Medic al tablet breakfast. Branch ferrous 3-0 Yes [id number] 324mg Take 1 Un briana sulfate 324 1-31 tablet by ity of mg (65 mg 00:00: mouth [place] iron) EC 00 daily with Medic al tablet breakfast. Branch ferrous 3-0 Yes [id number] 324mg Take 1 Un briana sulfate 324 1-31 tablet by ity of mg (65 mg 00:00: mouth [place] iron) EC 00 daily with Medic al tablet breakfast. Branch ferrous 3-0 Yes [id number] 324mg Take 1 Un briana sulfate 324 1-31 tablet by ity of mg (65 mg 00:00: mouth [place] iron) EC 00 daily with Medic al tablet breakfast. Branch ferrous 3-0 Yes [id number] 324mg Take 1 Un briana sulfate 324 1-31 tablet by ity of mg (65 mg 00:00: mouth [place] iron) EC 00 daily with Medic al tablet breakfast. Branch ferrous 3-0 Yes [id number] 324mg Take 1 Un briana sulfate 324 1-31 tablet by ity of mg (65 mg 00:00: mouth [place] iron) EC 00 daily with Medic al tablet breakfast. Branch ferrous 3-0 Yes [id number] 324mg Take 1 Un briana sulfate 324 1-31 tablet by ity of mg (65 mg 00:00: mouth [place] iron) EC 00 daily with Medic al tablet breakfast. Branch ferrous 3-0 Yes [id number] 324mg Take 1 Un briana sulfate 324 1-31 tablet by ity of mg (65 mg 00:00: mouth [place] iron) EC 00 daily with Medic al tablet breakfast. Branch ferrous 3-0 Yes [id number] 324mg Take 1 Un briana sulfate 324 1-31 tablet by ity of mg (65 mg 00:00: mouth [place] iron) EC 00 daily with Medic al tablet breakfast. Branch ferrous 3-0 Yes [id number] 324mg Take 1 Un briana sulfate 324 1-31 tablet by ity of mg (65 mg 00:00: mouth [place] iron) EC 00 daily with Medic al tablet breakfast. Branch ferrous 3-0 Yes [id number] 324mg Take 1 Un briana sulfate 324 1-31 tablet by ity of mg (65 mg 00:00: mouth [place] iron) EC 00 daily with Medic al tablet breakfast. Branch ferrous 3-0 Yes [id number] 324mg Take 1 Un briana sulfate 324 1-31 tablet by ity of mg (65 mg 00:00: mouth [place] iron) EC 00 daily with Medic al tablet breakfast. Branch ferrous 3-0 Yes [id number] 324mg Take 1 Un briana sulfate 324 1-31 tablet by ity of mg (65 mg 00:00: mouth [place] iron) EC 00 daily with Medic al tablet breakfast. Branch ferrous 3-0 Yes [id number] 324mg Take 1 Un briana sulfate 324 1-31 tablet by ity of mg (65 mg 00:00: mouth [place] iron) EC 00 daily with Medic al tablet breakfast. Branch ferrous 3-0 Yes [id number] 324mg Take 1 Un briana sulfate 324 1-31 tablet by ity of mg (65 mg 00:00: mouth [place] iron) EC 00 daily with Medic al tablet breakfast. Branch ferrous 3-0 Yes [id number] 324mg Take 1 Un briana sulfate 324 1-31 tablet by ity of mg (65 mg 00:00: mouth [place] iron) EC 00 daily with Medic al tablet breakfast. Branch ferrous 2022-0 Yes [id number] 324mg Take 1 Un briana sulfate 324 1-31 tablet by ity of mg (65 mg 00:00: mouth [place] iron) EC 00 daily with Medic al tablet breakfast. Branch ferrous 3-0 Yes [id number] 324mg Take 1 Un briana sulfate 324 1-31 tablet by ity of mg (65 mg 00:00: mouth [place] iron) EC 00 daily with Medic al tablet breakfast. Branch ferrous 3-0 Yes [id number] 324mg Take 1 Un briana sulfate 324 1-31 tablet by ity of mg (65 mg 00:00: mouth [place] iron) EC 00 daily with Medic al tablet breakfast. Branch ferrous 3-0 Yes [id number] 324mg Take 1 Un briana sulfate 324 1-31 tablet by ity of mg (65 mg 00:00: mouth [place] iron) EC 00 daily with Medic al tablet breakfast. Branch ferrous 3-0 Yes [id number] 324mg Take 1 Un briana sulfate 324 1-31 tablet by ity of mg (65 mg 00:00: mouth [place] iron) EC 00 daily with Medic al tablet breakfast. Branch ferrous 3-0 Yes [id number] 324mg Take 1 Un briana sulfate 324 1-31 tablet by ity of mg (65 mg 00:00: mouth [place] iron) EC 00 daily with Medic al tablet breakfast. Branch ferrous 3-0 Yes [id number] 324mg Take 1 Un briana sulfate 324 1-31 tablet by ity of mg (65 mg 00:00: mouth [place] iron) EC 00 daily with Medic al tablet breakfast. Branch ferrous 3-0 Yes [id number] 324mg Take 1 Un briana sulfate 324 1-31 tablet by ity of mg (65 mg 00:00: mouth [place] iron) EC 00 daily with Medic al tablet breakfast. Branch ferrous 3-0 Yes [id number] 324mg Take 1 Un briana sulfate 324 1-31 tablet by ity of mg (65 mg 00:00: mouth [place] iron) EC 00 daily with Medic al tablet breakfast. Branch ferrous 3-0 Yes [id number] 324mg Take 1 Un briana sulfate 324 1-31 tablet by ity of mg (65 mg 00:00: mouth [place] iron) EC 00 daily with Medic al tablet breakfast. Branch ferrous 3-0 Yes [id number] 324mg Take 1 Un briana sulfate 324 1-31 tablet by ity of mg (65 mg 00:00: mouth [place] iron) EC 00 daily with Medic al tablet breakfast. Branch ferrous 2022-0 Yes [id number] 324mg Take 1 Un briana sulfate 324 1-31 tablet by ity of mg (65 mg 00:00: mouth [place] iron) EC 00 daily with Medic al tablet breakfast. Branch ferrous 3-0 Yes [id number] 324mg Take 1 Un briana sulfate 324 1-31 tablet by ity of mg (65 mg 00:00: mouth [place] iron) EC 00 daily with Medic al tablet breakfast. Branch ferrous 3-0 Yes [id number] 324mg Take 1 Un briana sulfate 324 1-31 tablet by ity of mg (65 mg 00:00: mouth [place] iron) EC 00 daily with Medic al tablet breakfast. Branch ferrous 3-0 Yes [id number] 324mg Take 1 Un briana sulfate 324 1-31 tablet by ity of mg (65 mg 00:00: mouth [place] [facility]) EC 00 daily with [facility] tablet breakfast. Branch ferrous 3-0 Yes [id number] 324mg Take 1 Un briana sulfate 324 1-31 tablet by [facility] of mg (65 mg 00:00: mouth [place] [facility]) EC 00 daily with Medic al tablet breakfast. Branch ferrous 3-0 Yes [id number] 324mg Take 1 Un briana sulfate 324 1-31 tablet by [facility] of mg (65 mg 00:00: mouth [place] [facility]) EC 00 daily with Medic al tablet breakfast. Branch ferrous 3-0 Yes [id number] 324mg Take 1 Un briana sulfate 324 1-31 tablet by [facility] mg (65 mg 00:00: mouth [place] [facility]) EC 00 daily with Medic al tablet breakfast. [facility] ferrous 3-0 Yes [id number] 324mg Take 1 Un briana sulfate 324 1-31 tablet by [facility] of mg (65 mg 00:00: mouth [place] [facility]) EC 00 daily with Medic al tablet breakfast. Branch ferrous 3-0 Yes [id number] 324mg Take 1 Un briana sulfate 324 1-31 tablet by [facility] mg (65 mg 00:00: mouth [place] [facility]) EC 00 daily with Medic [facility] tablet breakfast. [facility] ferrous 3-0 Yes [id number] 324mg Take 1 Un briana sulfate 324 1-31 tablet by [facility] of mg (65 mg 00:00: mouth [place] [facility]) EC 00 daily with Medic al tablet breakfast. Branch ferrous 2022-0 Yes [id number] 324mg Take 1 Un briana sulfate 324 1-31 tablet by [facility] mg (65 mg 00:00: mouth [place] [facility]) EC 00 daily with Medic al tablet breakfast. Branch ferrous 2022-0 Yes [id number] 324mg Take 1 Un briana sulfate 324 1-31 tablet by [facility] mg (65 mg 00:00: mouth [place] [facility]) EC 00 daily with Medic al tablet breakfast. [facility] ferrous 3-0 Yes [id number] 324mg Take 1 Un briana sulfate 324 1-31 tablet by [facility] mg (65 mg 00:00: mouth [place] [facility]) EC 00 daily with Medic al tablet breakfast. Branch ferrous 3-0 Yes [id number] 324mg Take 1 Un briana sulfate 324 1-31 tablet by [facility] mg (65 mg 00:00: mouth [place] [facility]) EC 00 daily with Medic [facility] tablet breakfast. [facility] ferrous 3-0 Yes [id number] 324mg Take 1 Un briana sulfate 324 1-31 tablet by [facility] mg (65 mg 00:00: mouth [place] [facility]) EC 00 daily with Medic al tablet breakfast. [facility] ferrous 3-0 Yes [id number] 324mg Take 1 Un briana sulfate 324 1-31 tablet by [facility] mg (65 mg 00:00: mouth [place] [facility]) EC 00 daily with Medic al tablet breakfast. [facility] ferrous 2022-0 Yes [id number] 324mg Take 1 Un briana sulfate 324 1-31 tablet by [facility] mg (65 mg 00:00: mouth [place] [facility]) EC 00 daily with Medic al tablet breakfast. [facility] ferrous 2022-0 Yes [id number] 324mg Take 1 Un briana sulfate 324 1-31 tablet by [facility] mg (65 mg 00:00: mouth [place] [facility]) EC 00 daily with Medic al tablet breakfast. [facility] ferrous 2022-0 Yes [id number] 324mg Take 1 Un briana sulfate 324 1-31 tablet by [facility] mg (65 mg 00:00: mouth [place] [facility]) EC 00 daily with Medic al tablet breakfast. [facility] ferrous 2022-0 Yes [id number] 324mg Take 1 Un briana sulfate 324 1-31 tablet by [facility] mg (65 mg 00:00: mouth [place] [facility]) EC 00 daily with Medic al tablet breakfast. [facility] ferrous 2022-0 Yes [id number] 324mg Take 1 Un briana sulfate 324 1-31 tablet by [facility] mg (65 mg 00:00: mouth [place] [facility]) EC 00 daily with Medic al tablet breakfast. [facility] ferrous 2022-0 Yes [id number] 324mg Take 1 Un briana sulfate 324 1-31 tablet by [facility] mg (65 mg 00:00: mouth [place] [facility]) EC 00 daily with Medic al tablet breakfast. [facility] ferrous 2022-0 Yes [id number] 324mg Take 1 Un briana sulfate 324 1-31 tablet by [facility] of mg (65 mg 00:00: mouth [place] [facility]) EC 00 daily with Medic al tablet breakfast. [facility] ferrous 2022-0 Yes [id number] 324mg Take 1 Un briana sulfate 324 1-31 tablet by [facility] mg (65 mg 00:00: mouth [place] [facility]) EC 00 daily with [facility] al tablet breakfast. [facility] ferrous 2022-0 2022- No [id number] 324mg Take 1 U nivers sulfate 324 1-31 06-27 tablet by it y of mg (65 mg 00:00: 00:00 mouth [place] [facility]) EC 00 :00 daily with Medic al tablet breakfast. [facility] ferrous 2022-0 2022- No [id number] 324mg Take 1 U nivers sulfate 324 1--27 tablet by it y of mg (65 mg 00:00: 00:00 mouth [place] [facility]) EC 00 :00 daily with Medic al tablet breakfast. [facility] ferrous 2022-0 3- No [id number] 324mg Take 1 U nivers sulfate 324 --27 tablet by it y of mg (65 mg 00:00: 00:00 mouth [place] [facility]) EC 00 :00 daily with Medic al tablet breakfast. Branch losartan 50 2022-0 Yes [id number] 50mg Take 1 [facility] mg tablet 1-27 tablet by [facility] o f 00:00: mouth [place] 00 daily. [facility] furosemide 2022-0 Yes [id number] 20mg Take 1 [facility] nivers 20 mg 1-27 tablet by [facility] of tablet 00:00: mouth [place] 00 daily. [facility] losartan 50 2022-0 Yes [id number] 50mg Take 1 [facility] mg tablet 1-27 tablet by [facility] o f 00:00: mouth [place] 00 daily. [facility] furosemide 2022-0 Yes [id number] 20mg Take 1 [facility] nivers 20 mg 1-27 tablet by [facility] of tablet 00:00: mouth [place] 00 daily. [facility] losartan 50 2022-0 Yes [id number] 50mg Take 1 [facility] mg tablet 1-27 tablet by [facility] o f 00:00: mouth [place] 00 daily. [facility] furosemide 2022-0 Yes [id number] 20mg Take 1 [facility] nivers 20 mg 1-27 tablet by [facility] of tablet 00:00: mouth [place] 00 daily. [facility] losartan 50 2022-0 Yes [id number] 50mg Take 1 [facility] mg tablet 1-27 tablet by [facility] o f 00:00: mouth [place] 00 daily. [facility] furosemide 2022-0 Yes [id number] 20mg Take 1 [facility] nivers 20 mg 1-27 tablet by [facility] of tablet 00:00: mouth [place] 00 daily. [facility] losartan 50 2022-0 Yes [id number] 50mg Take 1 [facility] mg tablet 1-27 tablet by [facility]y o f 00:00: mouth [place] 00 daily. [facility] furosemide 2022-0 Yes [id number] 20mg Take 1 [facility] nivers 20 mg 1-27 tablet by [facility] of tablet 00:00: mouth [place] 00 daily. [facility] losartan 50 2022-0 Yes [id number] 50mg Take 1 [facility] mg tablet 1-27 tablet by [facility] o f 00:00: mouth [place] 00 daily. [facility] furosemide 2023-0 Yes [id number] 20mg Take 1 [facility] nivers 20 mg 1-27 tablet by [facility] of tablet 00:00: mouth [place] 00 daily. [facility] losartan 50 2022-0 Yes [id number] 50mg Take 1 [facility] mg tablet 1-27 tablet by [facility] o f 00:00: mouth [place] 00 daily. [facility] furosemide 2023-0 Yes [id number] 20mg Take 1 [facility] nivers 20 mg 1-27 tablet by [facility] of tablet 00:00: mouth [place] 00 daily. [facility] losartan 50 2022-0 Yes [id number] 50mg Take 1 [facility] mg tablet 1-27 tablet by [facility] o f 00:00: mouth [place] 00 daily. [facility] furosemide 2023-0 Yes [id number] 20mg Take 1 [facility] nivers 20 mg 1-27 tablet by [facility] of tablet 00:00: mouth [place] 00 daily. [facility] losartan 50 2022-0 Yes [id number] 50mg Take 1 [facility] mg tablet 1-27 tablet by [facility] o f 00:00: mouth [place] 00 daily. [facility] furosemide 3-0 Yes [id number] 20mg Take 1 [facility] nivers 20 mg 1-27 tablet by [facility] of tablet 00:00: mouth [place] 00 daily. [facility] losartan 50 2022-0 Yes [id number] 50mg Take 1 [facility] mg tablet 1-27 tablet by [facility] o f 00:00: mouth [place] 00 daily. [facility] furosemide 3-0 Yes [id number] 20mg Take 1 [facility] nivers 20 mg 1-27 tablet by [facility] of tablet 00:00: mouth [place] 00 daily. [facility] losartan 50 2022-0 Yes [id number] 50mg Take 1 [facility] mg tablet 1-27 tablet by [facility] o f 00:00: mouth [place] 00 daily. [facility] furosemide 2023-0 Yes [id number] 20mg Take 1 [facility] nivers 20 mg 1-27 tablet by [facility] of tablet 00:00: mouth [place] 00 daily. [facility] losartan 50 2022-0 Yes [id number] 50mg Take 1 [facility] mg tablet 1-27 tablet by [facility] o f 00:00: mouth [place] 00 daily. [facility] furosemide 2023-0 Yes [id number] 20mg Take 1 [facility] nivers 20 mg 1-27 tablet by [facility] of tablet 00:00: mouth [place] 00 daily. [facility] losartan 50 2023-0 Yes [id number] 50mg Take 1 [facility] mg tablet 1-27 tablet by [facility] o f 00:00: mouth [place] 00 daily. [facility] furosemide 2023-0 Yes [id number] 20mg Take 1 [facility] nivers 20 mg 1-27 tablet by [facility] of tablet 00:00: mouth [place] 00 daily. [facility] losartan 50 3-0 Yes [id number] 50mg Take 1 [facility] mg tablet 1-27 tablet by [facility] o f 00:00: mouth [place] 00 daily. [facility] furosemide 2023-0 Yes [id number] 20mg Take 1 [facility] nivers 20 mg 1-27 tablet by [facility] of tablet 00:00: mouth [place] 00 daily. [facility] losartan 50 2022-0 Yes [id number] 50mg Take 1 [facility] mg tablet 1-27 tablet by [facility] o f 00:00: mouth [place] 00 daily. [facility] furosemide 2023-0 Yes [id number] 20mg Take 1 [facility] nivers 20 mg 1-27 tablet by [facility] of tablet 00:00: mouth [place] 00 daily. [facility] losartan 50 2022-0 Yes [id number] 50mg Take 1 [facility] mg tablet 1-27 tablet by [facility] o f 00:00: mouth [place] 00 daily. [facility] furosemide 2023-0 Yes [id number] 20mg Take 1 [facility] nivers 20 mg 1-27 tablet by [facility] of tablet 00:00: mouth [place] 00 daily. [facility] furosemide 2023-0 Yes [id number] 20mg Take 1 [facility] nivers 20 mg 1-27 tablet by [facility] of tablet 00:00: mouth [place] 00 daily. [facility] furosemide 2023-0 Yes [id number] 20mg Take 1 [facility] nivers 20 mg 1-27 tablet by [facility] of tablet 00:00: mouth [place] 00 daily. [facility] furosemide 2023-0 Yes [id number] 20mg Take 1 [facility] nivers 20 mg 1-27 tablet by [facility] of tablet 00:00: mouth [place] 00 daily. [facility] furosemide 2023-0 2023- No [id number] 20mg Take 1 [facility] 20 mg 1-27 04-04 tablet by [facility] of tablet 00:00: 00:00 mouth [place] 00 :00 daily. [facility] furosemide 2023-0 2023- No [id number] 20mg Take 1 [facility] 20 mg 1-27 04-04 tablet by [facility] of tablet 00:00: 00:00 mouth [place] 00 :00 daily. [facility] losartan 50 3-0 2022- No [id number] 50mg Take 1 [facility] mg tablet 03-11-13 tablet by [facility] of 00:00: 00:00 mouth [place] 00 :00 daily. [facility] carvediloL 2021-02 Yes [id number] 6.25mg Take 1 [facility] 6.25 mg 2-09 tablet by [facility] of tablet 00:00: mouth 2 (two) Medical times [facility] daily with meals. atorvastati 2021-02 Yes [id number] 20mg Take 1 [facility] n 20 mg 2-09 tablet by [facility] of tablet 00:00: mouth at [place] 00 bedtime. [facility] omeprazole 2021-02 Yes [id number] 1{tbl} Take 1 [facility] 20 mg TbLD 2-09 tablet by [facility] of 00:00: mouth [place] 00 daily. [facility] tolterodine 2021-02 Yes [id number] 2mg Take 1 [facility] LA 2 mg 24 2-09 capsule by [facility] of hr capsule 00:00: mouth [place] 00 daily. [facility] carvediloL 2021-02 Yes [id number] 6.25mg Take 1 [facility] 6.25 mg 2-09 tablet by [facility] of tablet 00:00: mouth 2 (two) Medical times [facility] daily with meals. atorvastati 2021-02 Yes [id number] 20mg Take 1 [facility] n 20 mg 2-09 tablet by [facility] of tablet 00:00: mouth at [place] 00 bedtime. [facility] omeprazole 2021-02 Yes [id number] 1{tbl} Take 1 [facility] 20 mg TbLD 2-09 tablet by [facility] of 00:00: mouth [place] 00 daily. [facility] tolterodine 2021-02 Yes [id number] 2mg Take 1 [facility] [place] 2 mg 24 2-09 capsule by [facility] of hr capsule 00:00: mouth [place] 00 daily. [facility] carvediloL 2021-02 Yes [id number] 6.25mg Take 1 [facility] 6.25 mg 2-09 tablet by [facility] of tablet 00:00: mouth 2 00 (two) Medical times [facility] daily with meals. atorvastati 2021-02 Yes [id number] 20mg Take 1 [facility] n 20 mg 2-09 tablet by [facility] of tablet 00:00: mouth at [place] 00 bedtime. [facility] omeprazole 2021-02 Yes [id number] 1{tbl} Take 1 [facility] 20 mg TbLD 2-09 tablet by [facility]y of 00:00: mouth [place] 00 daily. [facility] tolterodine 2021-02 Yes [id number] 2mg Take 1 [facility] [place] 2 mg 24 2-09 capsule by [facility] of hr capsule 00:00: mouth [place] 00 daily. [facility] carvediloL 2021-02 Yes [id number] 6.25mg Take 1 [facility] 6.25 mg 2-09 tablet by [facility] of tablet 00:00: mouth 2 00 (two) Medical times [facility] daily with meals. atorvastati 2021-02 Yes [id number] 20mg Take 1 [facility] n 20 mg 2-09 tablet by [facility] of tablet 00:00: mouth at [place] 00 bedtime. [facility] omeprazole 2021-02 Yes [id number] 1{tbl} Take 1 [facility] 20 mg TbLD 2-09 tablet by [facility] of 00:00: mouth [place] 00 daily. [facility] tolterodine 2021-02 Yes [id number] 2mg Take 1 [facility] [place] 2 mg 24 2-09 capsule by [facility] of hr capsule 00:00: mouth [place] 00 daily. [facility] carvediloL 2021-02 Yes [id number] 6.25mg Take 1 [facility] 6.25 mg 2-09 tablet by [facility] of tablet 00:00: mouth 2 00 (two) Medical times [facility] daily with meals. atorvastati 2021-02 Yes [id number] 20mg Take 1 [facility] n 20 mg 2-09 tablet by [facility] of tablet 00:00: mouth at [place] 00 bedtime. [facility] omeprazole 2021-02 Yes [id number] 1{tbl} Take 1 [facility] 20 mg TbLD 2-09 tablet by [facility]y of 00:00: mouth [place] 00 daily. [facility] tolterodine 2021-02 Yes [id number] 2mg Take 1 [facility] [place] 2 mg 24 2-09 capsule by [facility] of hr capsule 00:00: mouth [place] 00 daily. [facility] carvediloL 2021-02 Yes [id number] 6.25mg Take 1 [facility] 6.25 mg 2-09 tablet by [facility] of tablet 00:00: mouth 2 00 (two) Medical times [facility] daily with meals. atorvastati 2021-02 Yes [id number] 20mg Take 1 [facility] n 20 mg 2-09 tablet by [facility] of tablet 00:00: mouth at [place] 00 bedtime. [facility] omeprazole 2021-02 Yes [id number] 1{tbl} Take 1 [facility] 20 mg TbLD 2-09 tablet by [facility]y of 00:00: mouth [place] 00 daily. [facility] tolterodine 2021-02 Yes [id number] 2mg Take 1 [facility] [place] 2 mg 24 2-09 capsule by [facility] of hr capsule 00:00: mouth [place] 00 daily. [facility] carvediloL 2021-02 Yes [id number] 6.25mg Take 1 [facility] 6.25 mg 2-09 tablet by [facility] of tablet 00:00: mouth 2 00 (two) Medical times [facility] daily with meals. atorvastati 2021-02 Yes [id number] 20mg Take 1 [facility] n 20 mg 2-09 tablet by [facility] of tablet 00:00: mouth at [place] 00 bedtime. [facility] omeprazole 2021-02 Yes [id number] 1{tbl} Take 1 [facility] 20 mg TbLD 2-09 tablet by [facility] of 00:00: mouth [place] 00 daily. [facility] tolterodine 2021-02 Yes [id number] 2mg Take 1 [facility] [place] 2 mg 24 2-09 capsule by [facility] of hr capsule 00:00: mouth [place] 00 daily. [facility] carvediloL 2021-02 Yes [id number] 6.25mg Take 1 [facility] 6.25 mg 2-09 tablet by [facility] of tablet 00:00: mouth 2 (two) Medical times [facility] daily with meals. atorvastati 2021-02 Yes [id number] 20mg Take 1 [facility] n 20 mg 2-09 tablet by [facility] of tablet 00:00: mouth at [place] 00 bedtime. [facility] omeprazole 2021-02 Yes [id number] 1{tbl} Take 1 [facility] 20 mg TbLD 2-09 tablet by [facility]y of 00:00: mouth [place] 00 daily. [facility] tolterodine 2021-02 Yes [id number] 2mg Take 1 [facility] [place] 2 mg 24 2-09 capsule by [facility] of hr capsule 00:00: mouth [place] 00 daily. [facility] carvediloL 2021-02 Yes [id number] 6.25mg Take 1 [facility] 6.25 mg 2-09 tablet by [facility] of tablet 00:00: mouth 2 00 (two) Medical times [facility] daily with meals. atorvastati 2021-02 Yes [id number] 20mg Take 1 [facility] n 20 mg 2-09 tablet by [facility] of tablet 00:00: mouth at [place] 00 bedtime. [facility] omeprazole 2021-02 Yes [id number] 1{tbl} Take 1 [facility] 20 mg TbLD 2-09 tablet by [facility]y of 00:00: mouth [place] 00 daily. [facility] tolterodine 2021-02 Yes [id number] 2mg Take 1 [facility] [place] 2 mg 24 2-09 capsule by [facility] of hr capsule 00:00: mouth [place] 00 daily. [facility] carvediloL 2021-02 Yes [id number] 6.25mg Take 1 [facility] 6.25 mg 2-09 tablet by [facility] of tablet 00:00: mouth 2 (two) Medical times [facility] daily with meals. atorvastati 2021-02 Yes [id number] 20mg Take 1 [facility] n 20 mg 2-09 tablet by [facility] of tablet 00:00: mouth at [place] 00 bedtime. [facility] omeprazole 2021-02 Yes [id number] 1{tbl} Take 1 [facility] 20 mg TbLD 2-09 tablet by [facility] of 00:00: mouth [place] 00 daily. [facility] tolterodine 2021-02 Yes [id number] 2mg Take 1 [facility] [place] 2 mg 24 2-09 capsule by [facility] of hr capsule 00:00: mouth [place] 00 daily. [facility] carvediloL 2021-02 Yes [id number] 6.25mg Take 1 [facility] 6.25 mg 2-09 tablet by [facility] of tablet 00:00: mouth 2 (two) Medical times [facility] daily with meals. atorvastati 2021-02 Yes [id number] 20mg Take 1 [facility] n 20 mg 2-09 tablet by [facility] of tablet 00:00: mouth at [place] 00 bedtime. [facility] omeprazole 2021-02 Yes [id number] 1{tbl} Take 1 [facility] 20 mg TbLD 2-09 tablet by [facility] of 00:00: mouth [place] 00 daily. [facility] tolterodine 2021-02 Yes [id number] 2mg Take 1 [facility] [place] 2 mg 24 2-09 capsule by [facility] of hr capsule 00:00: mouth [place] 00 daily. [facility] carvediloL 2021-02 Yes [id number] 6.25mg Take 1 [facility] 6.25 mg 2-09 tablet by [facility] of tablet 00:00: mouth 2 (two) Medical times [facility] daily with meals. atorvastati 2021-02 Yes [id number] 20mg Take 1 [facility] n 20 mg 2-09 tablet by [facility] of tablet 00:00: mouth at [place] 00 bedtime. [facility] omeprazole 2021-02 Yes [id number] 1{tbl} Take 1 [facility] 20 mg TbLD 2-09 tablet by [facility] of 00:00: mouth [place] 00 daily. [facility] tolterodine 2021-02 Yes [id number] 2mg Take 1 [facility] [place] 2 mg 24 2-09 capsule by [facility] of hr capsule 00:00: mouth [place] 00 daily. [facility] carvediloL 2021-02 Yes [id number] 6.25mg Take 1 [facility] 6.25 mg 2-09 tablet by [facility] of tablet 00:00: mouth 2 (two) Medical times [facility] daily with meals. atorvastati 2021-02 Yes [id number] 20mg Take 1 [facility] n 20 mg 2-09 tablet by [facility] of tablet 00:00: mouth at [place] 00 bedtime. [facility] omeprazole 2021-02 Yes [id number] 1{tbl} Take 1 [facility] 20 mg TbLD 2-09 tablet by [facility] of 00:00: mouth [place] 00 daily. [facility] tolterodine 2021-02 Yes [id number] 2mg Take 1 [facility] [place] 2 mg 24 2-09 capsule by [facility] of hr capsule 00:00: mouth [place] 00 daily. [facility] carvediloL 2021-02 Yes [id number] 6.25mg Take 1 [facility] 6.25 mg 2-09 tablet by [facility] of tablet 00:00: mouth 2 00 (two) Medical times [facility] daily with meals. atorvastati 2021-02 Yes [id number] 20mg Take 1 [facility] n 20 mg 2-09 tablet by [facility] of tablet 00:00: mouth at [place] 00 bedtime. [facility] omeprazole 2021-02 Yes [id number] 1{tbl} Take 1 [facility] 20 mg TbLD 2-09 tablet by [facility] of 00:00: mouth [place] 00 daily. [facility] tolterodine 2021-02 Yes [id number] 2mg Take 1 [facility] [place] 2 mg 24 2-09 capsule by [facility] of hr capsule 00:00: mouth [place] 00 daily. [facility] carvediloL 2021-02 Yes [id number] 6.25mg Take 1 [facility] 6.25 mg 2-09 tablet by [facility] of tablet 00:00: mouth (two) Medical times [facility] daily with meals. atorvastati 2021-02 Yes [id number] 20mg Take 1 [facility] n 20 mg 2-09 tablet by [facility] of tablet 00:00: mouth at [place] 00 bedtime. [facility] omeprazole 2021-02 Yes [id number] 1{tbl} Take 1 [facility] 20 mg TbLD 2-09 tablet by [facility] of 00:00: mouth [place] 00 daily. [facility] tolterodine 2021-02 Yes [id number] 2mg Take 1 [facility] [place] 2 mg 24 2-09 capsule by [facility] of hr capsule 00:00: mouth 00 daily. [facility] carvediloL 2021-02 Yes [id number] 6.25mg Take 1 [facility] 6.25 mg 2-09 tablet by [facility] of tablet 00:00: mouth (two) Medical times [facility] daily with meals. atorvastati 2021-02 Yes [id number] 20mg Take 1 [facility] n 20 mg 2-09 tablet by [facility] of tablet 00:00: mouth at [place] 00 bedtime. [facility] omeprazole 2021-02 Yes [id number] 1{tbl} Take 1 [facility] 20 mg TbLD 2-09 tablet by [facility] of 00:00: mouth [place] 00 daily. [facility] tolterodine 2021-02 Yes [id number] 2mg Take 1 [facility] [place] 2 mg 24 2-09 capsule by [facility] of hr capsule 00:00: mouth 00 daily. [facility] carvediloL 2021-02 Yes [id number] 6.25mg Take 1 [facility] 6.25 mg 2-09 tablet by [facility] of tablet 00:00: mouth (two) Medical times [facility] daily with meals. atorvastati 2021-02 Yes [id number] 20mg Take 1 [facility] n 20 mg 2-09 tablet by [facility] of tablet 00:00: mouth at [place] 00 bedtime. [facility] omeprazole 2021-02 Yes [id number] 1{tbl} Take 1 [facility] 20 mg TbLD 2-09 tablet by [facility] of 00:00: mouth [place] 00 daily. [facility] tolterodine 2021-02 Yes [id number] 2mg Take 1 [facility] [place] 2 mg 24 2-09 capsule by [facility] of hr capsule 00:00: mouth [place] 00 daily. [facility] carvediloL 2021-02 Yes [id number] 6.25mg Take 1 [facility] 6.25 mg 2-09 tablet by [facility] of tablet 00:00: mouth 2 00 (two) Medical times [facility] daily with meals. atorvastati 2021-02 Yes [id number] 20mg Take 1 [facility] n 20 mg 2-09 tablet by [facility] of tablet 00:00: mouth at [place] 00 bedtime. [facility] tolterodine 2021-02 Yes [id number] 2mg Take 1 [facility] [place] 2 mg 24 2-09 capsule by [facility] of hr capsule 00:00: mouth [place] 00 daily. [facility] carvediloL 2021-02 Yes [id number] 6.25mg Take 1 [facility] 6.25 mg 2-09 tablet by [facility] of tablet 00:00: mouth 2 00 (two) Medical times [facility] daily with meals. atorvastati 2021-02 Yes [id number] 20mg Take 1 [facility] n 20 mg 2-09 tablet by [facility] of tablet 00:00: mouth at [place] 00 bedtime. [facility] tolterodine 2021-02 Yes [id number] 2mg Take 1 [facility] [place] 2 mg 24 2-09 capsule by [facility] of hr capsule 00:00: mouth [place] 00 daily. [facility] carvediloL 2021-02 Yes [id number] 6.25mg Take 1 [facility] 6.25 mg 2-09 tablet by [facility] of tablet 00:00: mouth 2 (two) Medical times [facility] daily with meals. atorvastati 2021-02 Yes [id number] 20mg Take 1 [facility] n 20 mg 2-09 tablet by [facility] of tablet 00:00: mouth at [place] 00 bedtime. [facility] tolterodine 2021-02 Yes [id number] 2mg Take 1 [facility] [place] 2 mg 24 2-09 capsule by [facility] of hr capsule 00:00: mouth [place] 00 daily. [facility] carvediloL 2021-02 Yes [id number] 6.25mg Take 1 [facility] 6.25 mg 2-09 tablet by [facility] of tablet 00:00: mouth 2 00 (two) Medical times [facility] daily with meals. atorvastati 2021-02 Yes [id number] 20mg Take 1 [facility] n 20 mg 2-09 tablet by [facility] of tablet 00:00: mouth at [place] 00 bedtime. [facility] tolterodine 2021-02 Yes [id number] 2mg Take 1 [facility] [place] 2 mg 24 2-09 capsule by [facility] of hr capsule 00:00: mouth [place] 00 daily. [facility] carvediloL 2021-02 Yes [id number] 6.25mg Take 1 [facility] 6.25 mg 2-09 tablet by [facility] of tablet 00:00: mouth 2 (two) Medical times [facility] daily with meals. atorvastati 2021-02 Yes [id number] 20mg Take 1 [facility] n 20 mg 2-09 tablet by [facility] of tablet 00:00: mouth at [place] 00 bedtime. [facility] tolterodine 2021-02 Yes [id number] 2mg Take 1 [facility] [place] 2 mg 24 2-09 capsule by [facility] of hr capsule 00:00: mouth 00 daily. [facility] carvediloL 2021-02 Yes [id number] 6.25mg Take 1 [facility] 6.25 mg 2-09 tablet by [facility] of tablet 00:00: mouth 2 (two) Medical times [facility] daily with meals. atorvastati 2021-02 Yes [id number] 20mg Take 1 [facility] n 20 mg 2-09 tablet by [facility] of tablet 00:00: mouth at [place] 00 bedtime. [facility] tolterodine 2021-02 Yes [id number] 2mg Take 1 [facility] [place] 2 mg 24 2-09 capsule by [facility] of hr capsule 00:00: mouth 00 daily. [facility] carvediloL 2021-02 Yes [id number] 6.25mg Take 1 [facility] 6.25 mg 2-09 tablet by [facility] of tablet 00:00: mouth 2 (two) Medical times [facility] daily with meals. atorvastati 2021-02 Yes [id number] 20mg Take 1 [facility] n 20 mg 2-09 tablet by [facility] of tablet 00:00: mouth at [place] 00 bedtime. [facility] tolterodine 2021-02 Yes [id number] 2mg Take 1 [facility] [place] 2 mg 24 2-09 capsule by [facility] of hr capsule 00:00: mouth 00 daily. [facility] carvediloL 2021-02 Yes [id number] 6.25mg Take 1 [facility] 6.25 mg 2-09 tablet by [facility] of tablet 00:00: mouth 2 [place] 00 (two) Medical times [facility] daily with meals. atorvastati 2021-02 Yes [id number] 20mg Take 1 [facility] n 20 mg 2-09 tablet by [facility] of tablet 00:00: mouth at [place] 00 bedtime. [facility] tolterodine 2021-02 Yes [id number] 2mg Take 1 [facility] [place] 2 mg 24 2-09 capsule by [facility] of hr capsule 00:00: mouth 00 daily. [facility] carvediloL 2021-02 Yes [id number] 6.25mg Take 1 [facility] 6.25 mg 2-09 tablet by [facility] of tablet 00:00: mouth 2 00 (two) Medical times [facility] daily with meals. atorvastati 2021-02 Yes [id number] 20mg Take 1 [facility] n 20 mg 2-09 tablet by [facility] of tablet 00:00: mouth at [place] 00 bedtime. [facility] tolterodine 2021-02 Yes [id number] 2mg Take 1 [facility] [place] 2 mg 24 2-09 capsule by [facility] of hr capsule 00:00: mouth [place] 00 daily. [facility] carvediloL 2021-02 Yes [id number] 6.25mg Take 1 [facility] 6.25 mg 2-09 tablet by [facility] of tablet 00:00: mouth 2 (two) Medical times [facility] daily with meals. atorvastati 2021-02 Yes [id number] 20mg Take 1 [facility] n 20 mg 2-09 tablet by [facility] of tablet 00:00: mouth at [place] 00 bedtime. [facility] tolterodine 2021-02 Yes [id number] 2mg Take 1 [facility] [place] 2 mg 24 2-09 capsule by [facility] of hr capsule 00:00: mouth 00 daily. [facility] carvediloL 2021-02 Yes [id number] 6.25mg Take 1 [facility] 6.25 mg 2-09 tablet by [facility] of tablet 00:00: mouth 2 [place] 00 (two) Medical times [facility] daily with meals. atorvastati 2021-02 Yes [id number] 20mg Take 1 [facility] n 20 mg 2-09 tablet by [facility] of tablet 00:00: mouth at [place] 00 bedtime. [facility] tolterodine 2021-02 Yes [id number] 2mg Take 1 [facility] [place] 2 mg 24 2-09 capsule by [facility] of hr capsule 00:00: mouth 00 daily. [facility] carvediloL 2021-02 Yes [id number] 6.25mg Take 1 [facility] 6.25 mg 2-09 tablet by [facility] of tablet 00:00: mouth 2 (two) [facility] times [facility] daily with meals. atorvastati 2021-02 Yes [id number] 20mg Take 1 [facility] n 20 mg 2-09 tablet by [facility] of tablet 00:00: mouth at [place] 00 bedtime. [facility] tolterodine 2021-02 Yes [id number] 2mg Take 1 [facility] [place] 2 mg 24 2-09 capsule by [facility] of hr capsule 00:00: mouth [place] 00 daily. [facility] carvediloL 2021-02 Yes [id number] 6.25mg Take 1 [facility] 6.25 mg 2-09 tablet by [facility] of tablet 00:00: mouth 2 (two) [facility] times [facility] daily with meals. atorvastati 2021-02 Yes [id number] 20mg Take 1 [facility] 20 mg 2-09 tablet by [facility] tablet 00:00: mouth at [place] 00 bedtime. [facility] tolterodine 2021-02 Yes [id number] 2mg Take 1 [facility] [place] 2 mg 24 2-09 capsule by [facility] capsule 00:00: mouth 00 daily. [facility] carvediloL 2021-02 Yes [id number] 6.25mg Take 1 [facility] 6.25 mg 2-09 tablet by [facility] tablet 00:00: mouth 2 [place] (two) Medical times [facility] daily with meals. atorvastati 2021-02 Yes [id number] 20mg Take 1 [facility] 20 mg 2-09 tablet by [facility] tablet 00:00: mouth at [place] 00 bedtime. [facility] tolterodine 2021-02 Yes [id number] 2mg Take 1 [facility] [place] 2 mg 24 2-09 capsule by [facility] capsule 00:00: mouth [place] 00 daily. [facility] carvediloL 2021-02 Yes [id number] 6.25mg Take 1 [facility] 6.25 mg 2-09 tablet by [facility] tablet 00:00: mouth 2 [place] 00 (two) [facility] times [facility] daily with meals. atorvastati 2021-02 Yes [id number] 20mg Take 1 [facility] 20 mg 2-09 tablet by [facility] tablet 00:00: mouth at [place] 00 bedtime. [facility] tolterodine 2021-02 Yes [id number] 2mg Take 1 [facility] [place] 2 mg 24 2-09 capsule by [facility] capsule 00:00: mouth [place] 00 daily. [facility] carvediloL 2021-02 Yes [id number] 6.25mg Take 1 [facility] 6.25 mg 2-09 tablet by [facility] tablet 00:00: mouth 2 00 (two) Medical times [facility] daily with meals. atorvastati 2021-02 Yes [id number] 20mg Take 1 [facility] 20 mg 2-09 tablet by [facility] tablet 00:00: mouth at [place] 00 bedtime. [facility] tolterodine 2021-02 Yes [id number] 2mg Take 1 [facility] [place] 2 mg 24 2-09 capsule by [facility] capsule 00:00: mouth 00 daily. [facility] carvediloL 2021-02 Yes [id number] 6.25mg Take 1 [facility] 6.25 mg 2-09 tablet by [facility] tablet 00:00: mouth 2 (two) Medical times [facility] daily with meals. atorvastati 2021-02 Yes [id number] 20mg Take 1 [facility] 20 mg 2-09 tablet by [facility] tablet 00:00: mouth at [place] 00 bedtime. [facility] tolterodine 2021-02 Yes [id number] 2mg Take 1 [facility] [place] 2 mg 24 2-09 capsule by [facility] capsule 00:00: mouth 00 daily. [facility] carvediloL 2021-02 Yes [id number] 6.25mg Take 1 [facility] 6.25 mg 2-09 tablet by [facility] tablet 00:00: mouth 2 (two) Medical times [facility] daily with meals. atorvastati 2021-02 Yes [id number] 20mg Take 1 [facility] 20 mg 2-09 tablet by [facility] tablet 00:00: mouth at [place] 00 bedtime. [facility] tolterodine 2021-02 Yes [id number] 2mg Take 1 [facility] 2 mg 24 2-09 capsule by [facility] capsule 00:00: mouth [place] 00 daily. [facility] carvediloL 2021-02 Yes [id number] 6.25mg Take 1 [facility] 6.25 mg 2-09 tablet by [facility] tablet 00:00: mouth 2 00 (two) Medical times [facility] daily with meals. atorvastati 2021-02 Yes [id number] 20mg Take 1 [facility] 20 mg 2-09 tablet by [facility] tablet 00:00: mouth at [place] 00 bedtime. [facility] tolterodine 2021-02 Yes [id number] 2mg Take 1 [facility] 2 mg 24 2-09 capsule by [facility] capsule 00:00: mouth [place] 00 daily. [facility] carvediloL 2021-02 Yes [id number] 6.25mg Take 1 [facility] 6.25 mg 2-09 tablet by [facility] tablet 00:00: mouth 2 (two) Medical times [facility] daily with meals. atorvastati 2021-02 Yes [id number] 20mg Take 1 [facility] 20 mg 2-09 tablet by [facility] tablet 00:00: mouth at [place] 00 bedtime. [facility] tolterodine 2021-02 Yes [id number] 2mg Take 1 [facility] 2 mg 24 2-09 capsule by [facility] capsule 00:00: mouth [place] 00 daily. [facility] carvediloL 2021-02 Yes [id number] 6.25mg Take 1 [facility] 6.25 mg 2-09 tablet by [facility] tablet 00:00: mouth (two) [facility] times [facility] daily with meals. tolterodine 2021-02 Yes [id number] 2mg Take 1 [facility] 2 mg 24 2-09 capsule by [facility] capsule 00:00: mouth [place] 00 daily. [facility] carvediloL 2021-02 Yes [id number] 6.25mg Take 1 [facility] 6.25 mg 2-09 tablet by [facility] tablet 00:00: mouth (two) Medical times [facility] daily with meals. tolterodine 2021-02 Yes [id number] 2mg Take 1 [facility] 2 mg 24 2-09 capsule by [facility] capsule 00:00: mouth [place] 00 daily. [facility] carvediloL 2021-02 Yes [id number] 6.25mg Take 1 [facility] 6.25 mg 2-09 tablet by [facility] tablet 00:00: mouth 2 (two) Medical times [facility] daily with meals. tolterodine 2021-02 Yes [id number] 2mg Take 1 [facility] 2 mg 24 2-09 capsule by [facility] capsule 00:00: mouth [place] 00 daily. [facility] carvediloL 2021-02 Yes [id number] 6.25mg Take 1 [facility] 6.25 mg 2-09 tablet by [facility] tablet 00:00: mouth 2 00 (two) Medical times [facility] daily with meals. tolterodine 2021-02 Yes [id number] 2mg Take 1 [facility] 2 mg 24 2-09 capsule by [facility] capsule 00:00: mouth 00 daily. [facility] carvediloL 2021-02 Yes [id number] 6.25mg Take 1 [facility] 6.25 mg 2-09 tablet by [facility] tablet 00:00: mouth (two) [facility] times [facility] daily with meals. tolterodine 2021-02 Yes [id number] 2mg Take 1 [facility] 2 mg 24 2-09 capsule by [facility] capsule 00:00: mouth 00 daily. [facility] carvediloL 2021-02 Yes [id number] 6.25mg Take 1 [facility] 6.25 mg 2-09 tablet by [facility] tablet 00:00: mouth (two) Medical times [facility] daily with meals. tolterodine 2021-02 Yes [id number] 2mg Take 1 [facility] 2 mg 24 2-09 capsule by [facility] capsule 00:00: mouth 00 daily. [facility] carvediloL 2021-02 Yes [id number] 6.25mg Take 1 [facility] 6.25 mg 2-09 tablet by [facility] tablet 00:00: mouth (two) Medical times [facility] daily with meals. tolterodine 2021-02 Yes [id number] 2mg Take 1 [facility] 2 mg 24 2-09 capsule by [facility] capsule 00:00: mouth 00 daily. [facility] carvediloL 2021-02 Yes [id number] 6.25mg Take 1 [facility] 6.25 mg 2-09 tablet by [facility] tablet 00:00: mouth (two) [facility] times [facility] daily with meals. tolterodine 2021-02 Yes [id number] 2mg Take 1 [facility] 2 mg 24 2-09 capsule by [facility] capsule 00:00: mouth 00 daily. [facility] carvediloL 2021-02 Yes [id number] 6.25mg Take 1 [facility] 6.25 mg 2-09 tablet by [facility] tablet 00:00: mouth (two) [facility] times [facility] daily with meals. tolterodine 2021-02 Yes [id number] 2mg Take 1 [facility] 2 mg 24 2-09 capsule by [facility] capsule 00:00: mouth 00 daily. [facility] carvediloL 2021-02 Yes [id number] 6.25mg Take 1 [facility] 6.25 mg 2-09 tablet by [facility] tablet 00:00: mouth (two) [facility] times [facility] daily with meals. tolterodine 2021-02 Yes [id number] 2mg Take 1 [facility] 2 mg 24 2-09 capsule by [facility] capsule 00:00: mouth 00 daily. [facility] carvediloL 2021-02 Yes [id number] 6.25mg Take 1 [facility] 6.25 mg 2-09 tablet by [facility] tablet 00:00: mouth (two) [facility] times [facility] daily with meals. tolterodine 2021-02 Yes [id number] 2mg Take 1 [facility] 2 mg 24 2-09 capsule by [facility] capsule 00:00: mouth 00 daily. [facility] carvediloL 2021-02 Yes [id number] 6.25mg Take 1 [facility] 6.25 mg 2-09 tablet by [facility] tablet 00:00: mouth (two) [facility] times [facility] daily with meals. tolterodine 2021-02 Yes [id number] 2mg Take 1 [facility] 2 mg 24 2-09 capsule by [facility] capsule 00:00: mouth 00 daily. [facility] carvediloL 2021-02 Yes [id number] 6.25mg Take 1 [facility] 6.25 mg 2-09 tablet by [facility] tablet 00:00: mouth (two) [facility] times [facility] daily with meals. tolterodine 2021-02 Yes [id number] 2mg Take 1 [facility] [place] 2 mg 24 2-09 capsule by [facility] capsule 00:00: mouth [place] 00 daily. [facility] carvediloL 2021-02 Yes [id number] 6.25mg Take 1 [facility] 6.25 mg 2-09 tablet by [facility] tablet 00:00: mouth (two) Medical times [facility] daily with meals. tolterodine 2021-02 Yes [id number] 2mg Take 1 [facility] 2 mg 24 2-09 capsule by [facility] hr capsule 00:00: mouth [place] 00 daily. [facility] carvediloL 2021-02 Yes [id number] 6.25mg Take 1 [facility] 6.25 mg 2-09 tablet by [facility] tablet 00:00: mouth 2 00 (two) [facility] times [facility] daily with meals. tolterodine 2021-02 Yes [id number] 2mg Take 1 [facility] 2 mg 24 2-09 capsule by [facility] capsule 00:00: mouth 00 daily. [facility] carvediloL 2021-02 Yes [id number] 6.25mg Take 1 [facility] 6.25 mg 2-09 tablet by [facility] tablet 00:00: mouth (two) [facility] times [facility] daily with meals. tolterodine 2021-02 Yes [id number] 2mg Take 1 [facility] 2 mg 24 2-09 capsule by [facility] capsule 00:00: mouth 00 daily. [facility] carvediloL 2021-02 Yes [id number] 6.25mg Take 1 [facility] 6.25 mg 2-09 tablet by [facility] tablet 00:00: mouth (two) [facility] times [facility] daily with meals. tolterodine 2021-02 Yes [id number] 2mg Take 1 [facility] 2 mg 24 2-09 capsule by [facility] capsule 00:00: mouth 00 daily. [facility] carvediloL 2021-02 Yes [id number] 6.25mg Take 1 [facility] 6.25 mg 2-09 tablet by [facility] tablet 00:00: mouth (two) [facility] times [facility] daily with meals. tolterodine 2021-02 Yes [id number] 2mg Take 1 [facility] 2 mg 24 2-09 capsule by [facility] capsule 00:00: mouth 00 daily. [facility] carvediloL 2021-02 Yes [id number] 6.25mg Take 1 [facility] 6.25 mg 2-09 tablet by [facility] tablet 00:00: mouth (two) [facility] times [facility] daily with meals. tolterodine 2021-02 Yes [id number] 2mg Take 1 [facility] 2 mg 24 2-09 capsule by [facility] capsule 00:00: mouth 00 daily. [facility] carvediloL 2021-02 Yes [id number] 6.25mg Take 1 [facility] 6.25 mg 2-09 tablet by [facility] tablet 00:00: mouth 2 (two) [facility] times [facility] daily with meals. tolterodine 2021-02 Yes [id number] 2mg Take 1 [facility] 2 mg 24 2-09 capsule by [facility] hr capsule 00:00: mouth [place] 00 daily. [facility] carvediloL 2021-02 Yes [id number] 6.25mg Take 1 [facility] 6.25 mg 2-09 tablet by [facility] tablet 00:00: mouth (two) Medical times [facility] daily with meals. tolterodine 2021-02 Yes [id number] 2mg Take 1 [facility] 2 mg 24 2-09 capsule by [facility] hr capsule 00:00: mouth [place] 00 daily. [facility] carvediloL 2021-02 Yes [id number] 6.25mg Take 1 [facility] 6.25 mg 2-09 tablet by [facility] tablet 00:00: mouth 2 (two) Medical times [facility] daily with meals. tolterodine 2021-02 Yes [id number] 2mg Take 1 [facility] 2 mg 24 2-09 capsule by [facility] capsule 00:00: mouth 00 daily. [facility] carvediloL 2021-02 Yes [id number] 6.25mg Take 1 [facility] 6.25 mg 2-09 tablet by [facility] tablet 00:00: mouth (two) [facility] times [facility] daily with meals. tolterodine 2021-02 Yes [id number] 2mg Take 1 [facility] 2 mg 24 2-09 capsule by [facility] hr capsule 00:00: mouth 00 daily. [facility] carvediloL 2021-02 Yes [id number] 6.25mg Take 1 [facility] 6.25 mg 2-09 tablet by [facility] tablet 00:00: mouth (two) [facility] times [facility] daily with meals. tolterodine 2021-02 Yes [id number] 2mg Take 1 [facility] 2 mg 24 2-09 capsule by [facility] hr capsule 00:00: mouth [place] 00 daily. [facility] carvediloL 2021-02 Yes [id number] 6.25mg Take 1 [facility] 6.25 mg 2-09 tablet by [facility] tablet 00:00: mouth 2 (two) Medical times [facility] daily with meals. tolterodine 2021-02 Yes [id number] 2mg Take 1 [facility] 2 mg 24 2-09 capsule by [facility] hr capsule 00:00: mouth [place] 00 daily. [facility] carvediloL 2021-02 Yes [id number] 6.25mg Take 1 [facility] 6.25 mg 2-09 tablet by [facility] tablet 00:00: mouth 2 00 (two) Medical times [facility] daily with meals. tolterodine 2021-02 Yes [id number] 2mg Take 1 [facility] 2 mg 24 2-09 capsule by [facility] hr capsule 00:00: mouth 00 daily. [facility] carvediloL 2021-02 Yes [id number] 6.25mg Take 1 [facility] 6.25 mg 2-09 tablet by [facility] tablet 00:00: mouth (two) [facility] times [facility] daily with meals. tolterodine 2021-02 Yes [id number] 2mg Take 1 [facility] 2 mg 24 2-09 capsule by [facility] hr capsule 00:00: mouth [place] 00 daily. [facility] carvediloL 2021-02 Yes [id number] 6.25mg Take 1 [facility] 6.25 mg 2-09 tablet by [facility] tablet 00:00: mouth (two) Medical times [facility] daily with meals. tolterodine 2021-02 Yes [id number] 2mg Take 1 [facility] 2 mg 24 2-09 capsule by [facility] hr capsule 00:00: mouth 00 daily. [facility] carvediloL 2021-02 Yes [id number] 6.25mg Take 1 [facility] 6.25 mg 2-09 tablet by [facility] tablet 00:00: mouth (two) Medical times [facility] daily with meals. tolterodine 2021-02 Yes [id number] 2mg Take 1 [facility] 2 mg 24 2-09 capsule by [facility] hr capsule 00:00: mouth 00 daily. [facility] carvediloL 2021-02 Yes [id number] 6.25mg Take 1 [facility] 6.25 mg 2-09 tablet by [facility] tablet 00:00: mouth (two) [facility] times [facility] daily with meals. tolterodine 2021-02 Yes [id number] 2mg Take 1 [facility] 2 mg 24 2-09 capsule by [facility] hr capsule 00:00: mouth 00 daily. [facility] carvediloL 2021-02 Yes [id number] 6.25mg Take 1 [facility] 6.25 mg 2-09 tablet by [facility] tablet 00:00: mouth 2 (two) Medical times [facility] daily with meals. tolterodine 2021-02 Yes [id number] 2mg Take 1 [facility] 2 mg 24 2-09 capsule by [facility] hr capsule 00:00: mouth [place] 00 daily. [facility] carvediloL 2021-02 Yes [id number] 6.25mg Take 1 [facility] 6.25 mg 2-09 tablet by [facility] tablet 00:00: mouth (two) Medical times [facility] daily with meals. tolterodine 2021-02 Yes [id number] 2mg Take 1 [facility] 2 mg 24 2-09 capsule by [facility] hr capsule 00:00: mouth [place] 00 daily. [facility] carvediloL 2021-02 Yes [id number] 6.25mg Take 1 [facility] 6.25 mg 2-09 tablet by [facility] tablet 00:00: mouth 2 (two) Medical times [facility] daily with meals. tolterodine 2021-02 Yes [id number] 2mg Take 1 [facility] 2 mg 24 2-09 capsule by [facility] hr capsule 00:00: mouth 00 daily. [facility] carvediloL 2021-02 Yes [id number] 6.25mg Take 1 [facility] 6.25 mg 2-09 tablet by [facility] tablet 00:00: mouth (two) Medical times [facility] daily with meals. tolterodine 2021-02 Yes [id number] 2mg Take 1 [facility] 2 mg 24 2-09 capsule by [facility] hr capsule 00:00: mouth 00 daily. [facility] carvediloL 2021-02 Yes [id number] 6.25mg Take 1 [facility] 6.25 mg 2-09 tablet by [facility] tablet 00:00: mouth (two) Medical times [facility] daily with meals. tolterodine 2021-02 Yes [id number] 2mg Take 1 [facility] 2 mg 24 2-09 capsule by [facility] hr capsule 00:00: mouth [place] 00 daily. [facility] carvediloL 2021-02 Yes [id number] 6.25mg Take 1 [facility] 6.25 mg 2-09 tablet by [facility] tablet 00:00: mouth 2 (two) Medical times [facility] daily with meals. tolterodine 2021-02 Yes [id number] 2mg Take 1 [facility] 2 mg 24 2-09 capsule by [facility] hr capsule 00:00: mouth [place] 00 daily. [facility] carvediloL 2021-02 Yes [id number] 6.25mg Take 1 [facility] 6.25 mg 2-09 tablet by [facility] tablet 00:00: mouth 2 00 (two) Medical times [facility] daily with meals. tolterodine 2021-02 Yes [id number] 2mg Take 1 [facility] 2 mg 24 2-09 capsule by [facility] hr capsule 00:00: mouth [place] 00 daily. [facility] tolterodine 2021-02 Yes [id number] 2mg Take 1 [facility] 2 mg 24 2-09 capsule by [facility] hr capsule 00:00: mouth [place] 00 daily. [facility] tolterodine 2021-02 Yes [id number] 2mg Take 1 [facility] 2 mg 24 2-09 capsule by [facility] hr capsule 00:00: mouth [place] 00 daily. [facility] tolterodine 2021-02 Yes [id number] 2mg Take 1 [facility] 2 mg 24 2-09 capsule by [facility] hr capsule 00:00: mouth [place] 00 daily. [facility] tolterodine 2021-02 Yes [id number] 2mg Take 1 [facility] 2 mg 24 2-09 capsule by [facility] hr capsule 00:00: mouth [place] 00 daily. [facility] tolterodine 2021-02 Yes [id number] 2mg Take 1 [facility] 2 mg 24 2-09 capsule by [facility] hr capsule 00:00: mouth [place] 00 daily. [facility] carvediloL 2021-02- No [id number] 6.25mg Take 1 [facility] 6.25 mg 03-24- tablet by [facility] tablet 00:00: 00:00 mouth 2 [place] 00 :00 (two) Medical times Branch daily with meals. carvediloL 2021-02- No [id number] 6.25mg Take 1 [facility] 6.25 mg 03-24- tablet by [facility] tablet 00:00: 00:00 mouth 2 [place] 00 :00 (two) Medical times Branch daily with meals. carvediloL 2021-02- No [id number] 6.25mg Take 1 [facility] 6.25 mg 03-24-27 tablet by [facility] tablet 00:00: 00:00 mouth 2 [place] 00 :00 (two) Medical times Branch daily with meals. atorvastati 2021-02- No [id number] 20mg Take 1 [facility] n 20 mg 03-24-28 tablet by [facility] of tablet 00:00: 00:00 mouth at [place] 00 :00 bedtime. [facility] atorvastati 2021-02- No [id number] 20mg Take 1 [facility] n 20 mg 03-24 tablet by [facility] of tablet 00:00: 00:00 mouth at [place] 00 :00 bedtime. [facility] atorvastati 2021-02- No [id number] 20mg Take 1 [facility] n 20 mg 03-24 tablet by [facility] of tablet 00:00: 00:00 mouth at [place] 00 :00 bedtime. [facility] carvediloL 2021-02 Yes [id number] 12.5mg Take 1 [facility] 12.5 mg -11 tablet by [facility] of tablet 00:00: mouth 2 [place] 00 (two) Medical times Branch daily with meals. Additional refills per cardio carvediloL 2021-02 Yes [id number] 12.5mg Take 1 [facility] 12.5 mg -11 tablet by [facility] of tablet 00:00: mouth 2 [place] 00 (two) Medical times Branch daily with meals. Additional refills per cardio carvediloL 2021-02- No [id number] 12.5mg Take 1 [facility] 12.5 mg -01-21 tablet by [facility] of tablet 00:00: 00:00 mouth 2 [place] 00 :00 (two) Medical times Branch daily with meals. Additional refills per cardio carvediloL 2021-02- No [id number] 12.5mg Take 1 [facility] 12.5 mg -11 01-21 tablet by [facility] of tablet 00:00: 00:00 mouth 2 [place] 00 :00 (two) Medical times Branch daily [...] mouth once [place] 00 daily with [facility] Branch METFORMIN 2021-02 Yes Take 1 [facility] 500 mg 24 1-09 tablet by it[facility] o f hr tablet 00:00: mouth once [place] 00 daily with [facility] Branch METFORMIN 2021-02 Yes Take 1 [facility] 500 mg 24 1-09 tablet by [facility] o f hr tablet 00:00: mouth once [place] 00 daily with [facility] breakfast Branch METFORMIN 2021-02 Yes Take 1 [facility] 500 mg 24 1-09 tablet by [facility] o f hr tablet 00:00: mouth once [place] 00 daily with [facility] Branch METFORMIN 2021-02 Yes Take 1 [facility] 500 mg 24 1-09 tablet by [facility] o f hr tablet 00:00: mouth once [place] 00 daily with [facility] Branch METFORMIN 2021-02 Yes Take 1 [facility] 500 mg 24 1-09 tablet by [facility] o f hr tablet 00:00: mouth once [place] 00 daily with [facility] breakfast Branch METFORMIN 2021-02 Yes Take 1 [facility] 500 mg 24 1-09 tablet by [facility]y o f hr tablet 00:00: mouth once [place] 00 daily with [facility] Branch METFORMIN 2021-02 Yes Take 1 [facility] 500 mg 24 1-09 tablet by [facility]y o f hr tablet 00:00: mouth once [place] 00 daily with [facility] Branch METFORMIN 2021-02 Yes Take 1 [facility] 500 mg 24 1-09 tablet by [facility] o f hr tablet 00:00: mouth once [place] 00 daily with [facility] breakfast Branch METFORMIN 2021-02 Yes Take 1 [facility] 500 mg 24 1-09 tablet by [facility] o f hr tablet 00:00: mouth once [place] 00 daily with [facility] breakfast Branch METFORMIN 2021-02 Yes Take 1 [facility] 500 mg 24 1-09 tablet by ity o f hr tablet 00:00: mouth once [place] 00 daily with [facility] Branch METFORMIN 2021-02 Yes Take 1 [facility] 500 mg 24 1-09 tablet by ity o f hr tablet 00:00: mouth once [place] 00 daily with [facility] breakfast Branch METFORMIN 2021-02 Yes Take 1 [...] mouth once [place] 00 daily with [facility] Branch METFORMIN 2021-02 Yes Take 1 [facility] 500 mg 24 1-09 tablet by ity o f hr tablet 00:00: mouth once [place] 00 daily with [facility] Branch METFORMIN 2021-02 Yes Take 1 [facility] 500 mg 24 1-09 tablet by [facility]y o f hr tablet 00:00: mouth once [place] 00 daily with [facility] breakfast Branch METFORMIN 2021-02 Yes Take 1 [facility] 500 mg 24 1-09 tablet by ity o f hr tablet 00:00: mouth once [place] 00 daily with [facility] Branch METFORMIN 2021-02 Yes Take 1 [facility] 500 mg 24 1-09 tablet by ity o f hr tablet 00:00: mouth once [place] 00 daily with [facility] Branch METFORMIN 2021-02 Yes Take 1 [facility] 500 mg 24 1-09 tablet by [facility] o f hr tablet 00:00: mouth once [place] 00 daily with [facility] breakfast Branch METFORMIN 2021-02 Yes Take 1 [facility] 500 mg 24 1-09 tablet by [facility]y o f hr tablet 00:00: mouth once [place] 00 daily with [facility] Branch METFORMIN 2021-02 Yes Take 1 [facility] 500 mg 24 1-09 tablet by [facility]y o f hr tablet 00:00: mouth once [place] 00 daily with [facility] Branch METFORMIN 2021-02 Yes Take 1 [facility] 500 mg 24 1-09 tablet by [facility]y o f hr tablet 00:00: mouth once [place] 00 daily with [facility] breakfast Branch METFORMIN 2021-02 Yes Take 1 [facility] 500 mg 24 1-09 tablet by [facility]y o f hr tablet 00:00: mouth once [place] 00 daily with [facility] breakfast Branch METFORMIN 2021-02 Yes Take 1 [facility] 500 mg 24 1-09 tablet by ity o f hr tablet 00:00: mouth once [place] 00 daily with [facility] Branch METFORMIN 2021-02 Yes Take 1 [facility] 500 mg 24 1-09 tablet by ity o f hr tablet 00:00: mouth once [place] 00 daily with [facility] breakfast Branch METFORMIN 2021-02 Yes Take 1 [...] mouth once [place] 00 daily with [facility] Branch METFORMIN 2021-02 Yes Take 1 [facility] 500 mg 24 1-09 tablet by ity o f hr tablet 00:00: mouth once [place] 00 daily with [facility] Branch METFORMIN 2021-02 Yes Take 1 [facility] 500 mg 24 1-09 tablet by [facility]y o f hr tablet 00:00: mouth once [place] 00 daily with [facility] breakfast Branch METFORMIN 2021-02 Yes Take 1 [facility] 500 mg 24 1-09 tablet by ity o f hr tablet 00:00: mouth once [place] 00 daily with [facility] Branch METFORMIN 2021-02 Yes Take 1 [facility] 500 mg 24 1-09 tablet by ity o f hr tablet 00:00: mouth once [place] 00 daily with [facility] Branch METFORMIN 2021-02 Yes Take 1 [facility] 500 mg 24 1-09 tablet by [facility]y o f hr tablet 00:00: mouth once [place] 00 daily with [facility] breakfast Branch METFORMIN 2021-02 Yes Take 1 [facility] 500 mg 24 1-09 tablet by [facility]y o f hr tablet 00:00: mouth once [place] 00 daily with [facility] Branch METFORMIN 2021-02 Yes Take 1 [facility] 500 mg 24 1-09 tablet by ity o f hr tablet 00:00: mouth once [place] 00 daily with [facility] Branch METFORMIN 2021-02 Yes Take 1 [facility] 500 mg 24 1-09 tablet by ity o f hr tablet 00:00: mouth once [place] 00 daily with [facility] breakfast Branch METFORMIN 2021-02 Yes Take 1 [facility] 500 mg 24 1-09 tablet by ity o f hr tablet 00:00: mouth once [place] 00 daily with [facility] breakfast Branch METFORMIN 2021-02 Yes Take 1 [facility] 500 mg 24 1-09 tablet by ity o f hr tablet 00:00: mouth once [place] 00 daily with [facility] Branch METFORMIN 2021-02 Yes Take 1 [facility] 500 mg 24 1-09 tablet by ity o f hr tablet 00:00: mouth once [place] 00 daily with [facility] breakfast Branch METFORMIN 2021-02 Yes Take 1 [...] ity o f tablet 14:33: 00:00 daily. [place] 53 :00 Medical Branch spironolact 2021-02- No 25mg Take 25 mg [facility] one 25 mg 0-21 10-21 by mouth ity o f tablet 14:33: 00:00 daily. [place] 53 :00 Medical Branch benzonatate 2021-02 Yes [id number] 200mg Take 1 [facility] 200 mg 0-21 capsule by ity of capsule 00:00: mouth 3 [place] 00 (three) Medical times Branch daily as needed for Cough. atorvastati 2021-02 Yes [id number] 40mg Take 1 [facility] n 40 mg 0-21 tablet by ity of tablet 00:00: mouth at [place] 00 bedtime. Medical Branch losartan 25 2021-02 Yes [id number] 25mg Take 1 [facility] mg tablet 0-21 tablet by ity o f 00:00: mouth at [place] 00 bedtime. Medical Branch furosemide 2021-02 Yes [id number] 20mg Take 1 [facility] 20 mg 0-21 tablet by ity of tablet 00:00: mouth [place] 00 daily. Medical Branch spironolact 2021-02 Yes [id number] 25mg Take 1 [facility] one 25 mg 0-21 tablet by ity o f tablet 00:00: mouth [place] 00 daily. Medical Branch benzonatate 2021-02 Yes [id number] 200mg Take 1 [facility] 200 mg 0-21 capsule by ity of capsule 00:00: mouth 3 00 (three) Medical times Branch daily as needed for Cough. atorvastati 2021-02 Yes [id number] 40mg Take 1 [facility] n 40 mg 0-21 tablet by ity of tablet 00:00: mouth at [place] 00 bedtime. Medical Branch losartan 25 2021-02 Yes [id number] 25mg Take 1 [facility] mg tablet 0-21 tablet by ity o f 00:00: mouth at [place] 00 bedtime. Medical Branch furosemide 2021-02 Yes [id number] 20mg Take 1 [facility] 20 mg 0-21 tablet by ity of tablet 00:00: mouth [place] 00 daily. Medical Branch spironolact 2021-02 Yes [id number] 25mg Take 1 [facility] one 25 mg 0-21 tablet by ity o f tablet 00:00: mouth 00 daily. Medical Branch benzonatate 2021-02 Yes [id number] 200mg Take 1 [facility] 200 mg 0-21 capsule by ity of capsule 00:00: mouth 3 (three) Medical times Branch daily as needed for Cough. atorvastati 2021-02 Yes [id number] 40mg Take 1 [facility] 40 mg 0-21 tablet by [facility] tablet 00:00: mouth at [place] 00 bedtime. [facility] losartan 25 2021-02 Yes [id number] 25mg Take 1 [facility] mg tablet 0-21 tablet by [facility] o f 00:00: mouth at [place] 00 bedtime. [facility] furosemide 2021-02 Yes [id number] 20mg Take 1 [facility] 20 mg 0-21 tablet by [facility] tablet 00:00: mouth [place] 00 daily. [facility] spironolact 2021-02 Yes [id number] 25mg Take 1 [facility] one 25 mg 0-21 tablet by [facility] o f tablet 00:00: mouth [place] 00 daily. [facility] benzonatate 2021-02 Yes [id number] 200mg Take 1 [facility] 200 mg 0-21 capsule by [facility] capsule 00:00: mouth 3 00 (three) Medical times Branch daily as needed for Cough. atorvastati 2021-02 Yes [id number] 40mg Take 1 [facility] n 40 mg 0-21 tablet by [facility] tablet 00:00: mouth at [place] 00 bedtime. [facility] losartan 25 2021-02 Yes [id number] 25mg Take 1 [facility] mg tablet 0-21 tablet by [facility] o f 00:00: mouth at [place] 00 bedtime. [facility] furosemide 2021-02 Yes [id number] 20mg Take 1 [facility] 20 mg 0-21 tablet by [facility] tablet 00:00: mouth [place] 00 daily. [facility] spironolact 2021-02 Yes [id number] 25mg Take 1 [facility] one 25 mg 0-21 tablet by [facility] o f tablet 00:00: mouth [place] 00 daily. [facility] benzonatate 2021-02 Yes [id number] 200mg Take 1 [facility] 200 mg 0-21 capsule by [facility] capsule 00:00: mouth 3 [place] (three) Medical times Branch daily as needed for Cough. atorvastati 2021-02 Yes [id number] 40mg Take 1 [facility] n 40 mg 0-21 tablet by [facility] tablet 00:00: mouth at [place] 00 bedtime. [facility] losartan 25 2021-02 Yes [id number] 25mg Take 1 [facility] mg tablet 0-21 tablet by [facility] o f 00:00: mouth at [place] 00 bedtime. [facility] furosemide 2021-02 Yes [id number] 20mg Take 1 [facility] 20 mg 0-21 tablet by [facility] tablet 00:00: mouth [place] 00 daily. [facility] spironolact 2021-02 Yes [id number] 25mg Take 1 [facility] one 25 mg 0-21 tablet by [facility] o f tablet 00:00: mouth [place] 00 daily. [facility] benzonatate 2021-02 Yes [id number] 200mg Take 1 [facility] 200 mg 0-21 capsule by [facility] capsule 00:00: mouth 3 [place] 00 (three) Medical times Branch daily as needed for Cough. atorvastati 2021-02 Yes [id number] 40mg Take 1 [facility] n 40 mg 0-21 tablet by [facility] tablet 00:00: mouth at [place] 00 bedtime. [facility] losartan 25 2021-02 Yes [id number] 25mg Take 1 [facility] mg tablet 0-21 tablet by [facility] o f 00:00: mouth at [place] 00 bedtime. [facility] furosemide 2021-02 Yes [id number] 20mg Take 1 [facility] 20 mg 0-21 tablet by [facility] tablet 00:00: mouth [place] 00 daily. [facility] spironolact 2021-02 Yes [id number] 25mg Take 1 [facility] one 25 mg 0-21 tablet by [facility] o f tablet 00:00: mouth [place] 00 daily. [facility] losartan 25 2021-02 Yes [id number] 25mg Take 1 [facility] mg tablet 0-21 tablet by [facility] o f 00:00: mouth at [place] 00 bedtime. [facility] furosemide 2021-02 Yes [id number] 20mg Take 1 [facility] 20 mg 0-21 tablet by [facility] tablet 00:00: mouth [place] 00 daily. [facility] spironolact 2021-02 Yes [id number] 25mg Take 1 [facility] one 25 mg 0-21 tablet by [facility] o f tablet 00:00: mouth [place] 00 daily. [facility] losartan 25 2021-02 Yes [id number] 25mg Take 1 [facility] mg tablet 0-21 tablet by [facility] o f 00:00: mouth at [place] 00 bedtime. [facility] furosemide 2021-02 Yes [id number] 20mg Take 1 [facility] 20 mg 0-21 tablet by [facility] tablet 00:00: mouth [place] 00 daily. [facility] spironolact 2021-02 Yes [id number] 25mg Take 1 [facility] one 25 mg 0-21 tablet by [facility] o f tablet 00:00: mouth [place] 00 daily. [facility] losartan 25 2021-02 Yes [id number] 25mg Take 1 [facility] mg tablet 0-21 tablet by [facility] o f 00:00: mouth at [place] 00 bedtime. [facility] furosemide 2021-02 Yes [id number] 20mg Take 1 [facility] 20 mg 0-21 tablet by [facility] tablet 00:00: mouth [place] 00 daily. [facility] spironolact 2021-02 Yes [id number] 25mg Take 1 [facility] one 25 mg 0-21 tablet by [facility] o f tablet 00:00: mouth [place] 00 daily. [facility] losartan 25 2021-02 Yes [id number] 25mg Take 1 [facility] mg tablet 0-21 tablet by [facility] o f 00:00: mouth at [place] 00 bedtime. [facility] furosemide 2021-02 Yes [id number] 20mg Take 1 [facility] 20 mg 0-21 tablet by [facility] tablet 00:00: mouth [place] 00 daily. [facility] spironolact 2021-02 Yes [id number] 25mg Take 1 [facility] one 25 mg 0-21 tablet by [facility] o f tablet 00:00: mouth [place] 00 daily. [facility] spironolact 2021-02 Yes [id number] 25mg Take 1 [facility] one 25 mg 0-21 tablet by [facility] o f tablet 00:00: mouth [place] 00 daily. [facility] spironolact 2021-02 Yes [id number] 25mg Take 1 [facility] one 25 mg 0-21 tablet by [facility] o f tablet 00:00: mouth [place] 00 daily. [facility] spironolact 2021-02 Yes [id number] 25mg Take 1 [facility] one 25 mg 0-21 tablet by [facility] o f tablet 00:00: mouth [place] 00 daily. [facility] spironolact 2021-02 Yes [id number] 25mg Take 1 [facility] one 25 mg 0-21 tablet by [facility] o f tablet 00:00: mouth [place] 00 daily. [facility] spironolact 2021-02 Yes [id number] 25mg Take 1 [facility] one 25 mg 0-21 tablet by [facility] o f tablet 00:00: mouth [place] 00 daily. [facility] spironolact 2021-02 Yes [id number] 25mg Take 1 [facility] one 25 mg 0-21 tablet by [facility] o f tablet 00:00: mouth [place] 00 daily. [facility] spironolact 2021-02 Yes [id number] 25mg Take 1 [facility] one 25 mg 0-21 tablet by [facility] o f tablet 00:00: mouth [place] 00 daily. [facility] spironolact 2021-02 Yes [id number] 25mg Take 1 [facility] one 25 mg 0-21 tablet by [facility] o f tablet 00:00: mouth [place] 00 daily. [facility] spironolact 2021-02 Yes [id number] 25mg Take 1 [facility] one 25 mg 0-21 tablet by [facility] o f tablet 00:00: mouth [place] 00 daily. [facility] spironolact 2021-02 Yes [id number] 25mg Take 1 [facility] one 25 mg 0-21 tablet by [facility] f tablet 00:00: mouth [place] 00 daily. [facility] spironolact 2021-02 Yes [id number] 25mg Take 1 [facility] one 25 mg 0-21 tablet by [facility] o f tablet 00:00: mouth [place] 00 daily. [facility] spironolact 2021-02 Yes [id number] 25mg Take 1 [facility] one 25 mg 0-21 tablet by [facility] o f tablet 00:00: mouth [place] 00 daily. [facility] spironolact 2021-02 Yes [id number] 25mg Take 1 [facility] one 25 mg 0-21 tablet by [facility] o f tablet 00:00: mouth [place] 00 daily. [facility] spironolact 2021-02 Yes [id number] 25mg Take 1 [facility] one 25 mg 0-21 tablet by [facility] o f tablet 00:00: mouth [place] 00 daily. [facility] spironolact 2021-02 Yes [id number] 25mg Take 1 [facility] one 25 mg 0-21 tablet by [facility] o f tablet 00:00: mouth [place] 00 daily. [facility] spironolact 2021-02 Yes [id number] 25mg Take 1 [facility] one 25 mg 0-21 tablet by [facility] o f tablet 00:00: mouth [place] 00 daily. [facility] spironolact 2021-02 Yes [id number] 25mg Take 1 [facility] one 25 mg 0-21 tablet by [facility] o f tablet 00:00: mouth [place] 00 daily. [facility] spironolact 2021-02 Yes [id number] 25mg Take 1 [facility] one 25 mg 0-21 tablet by [facility] o f tablet 00:00: mouth [place] 00 daily. [facility] spironolact 2021-02 Yes [id number] 25mg Take 1 [facility] one 25 mg 0-21 tablet by [facility] o f tablet 00:00: mouth [place] 00 daily. [facility] spironolact 2021-02 Yes [id number] 25mg Take 1 [facility] one 25 mg 0-21 tablet by [facility] o f tablet 00:00: mouth [place] 00 daily. [facility] spironolact 2021-02 Yes [id number] 25mg Take 1 [facility] one 25 mg 0-21 tablet by [facility] o f tablet 00:00: mouth [place] 00 daily. [facility] spironolact 2021-02 Yes [id number] 25mg Take 1 [facility] one 25 mg 0-21 tablet by [facility] o f tablet 00:00: mouth [place] 00 daily. [facility] spironolact 2021-02 Yes [id number] 25mg Take 1 [facility] one 25 mg 0-21 tablet by [facility] o f tablet 00:00: mouth [place] 00 daily. [facility] spironolact 2021-02 Yes [id number] 25mg Take 1 [facility] one 25 mg 0-21 tablet by [facility] o f tablet 00:00: mouth [place] 00 daily. [facility] spironolact 2021-02- No [id number] 25mg Take 1 [facility] one 25 mg 0-21 04-12 tablet by [facility] tablet 00:00: 00:00 mouth [place] 00 :00 daily. [facility] spironolact 2021-02- No [id number] 25mg Take 1 [facility] one 25 mg 0-21 04-12 tablet by [facility] tablet 00:00: 00:00 mouth [place] 00 :00 daily. [facility] losartan 25 2021-02- No [id number] 25mg Take 1 [facility] mg tablet 0-05 03-27 tablet by [facility] of 00:00: 00:00 mouth at [place] 00 :00 bedtime. [facility] furosemide 2021-02- No [id number] 20mg Take 1 [facility] 20 mg 0-21 -27 tablet by [facility] tablet 00:00: 00:00 mouth [place] 00 :00 daily. [facility] losartan 25 2021-02- No [id number] 25mg Take 1 [facility] mg tablet 0-05 03-27 tablet by [facility] of 00:00: 00:00 mouth at [place] 00 :00 bedtime. [facility] furosemide 2021-02- No [id number] 20mg Take 1 [facility] 20 mg 0-21 -27 tablet by [facility] of tablet 00:00: 00:00 mouth [place] 00 :00 daily. [facility] losartan 25 2021-02- No [id number] 25mg Take 1 [facility] mg tablet 0-05 03-27 tablet by [facility] of 00:00: 00:00 mouth at [place] 00 :00 bedtime. [facility] furosemide 2021-02- No [id number] 20mg Take 1 [facility] 20 mg 0-21 -27 tablet by [facility] of tablet 00:00: 00:00 mouth [place] 00 :00 daily. [facility] losartan 25 2021-02- No [id number] 25mg Take 1 [facility] mg tablet 0-05 03-27 tablet by [facility] of 00:00: 00:00 mouth at [place] 00 :00 bedtime. [facility] furosemide 2021-02- No [id number] 20mg Take 1 [facility] 20 mg 0-21 -27 tablet by [facility] of tablet 00:00: 00:00 mouth [place] 00 :00 daily. [facility] losartan 25 2021-02- No [id number] 25mg Take 1 [facility] mg tablet 0-05 03- tablet by [facility] of 00:00: 00:00 mouth at [place] 00 :00 bedtime. [facility] furosemide 2021-02- No [id number] 20mg Take 1 [facility] 20 mg 0-21 -27 tablet by [facility] of tablet 00:00: 00:00 mouth [place] 00 :00 daily. [facility] losartan 25 2021-02- No [id number] 25mg Take 1 [facility] mg tablet 0-03-11 tablet by [facility] of 00:00: 00:00 mouth at [place] 00 :00 bedtime. [facility] furosemide 2021-02- No [id number] 20mg Take 1 [facility] 20 mg 0-05 03- tablet by [facility] of tablet 00:00: 00:00 mouth [place] 00 :00 daily. [facility] losartan 25 2021-02- No [id number] 25mg Take 1 [facility] mg tablet 003-11 tablet by [facility] of 00:00: 00:00 mouth at [place] 00 :00 bedtime. [facility] furosemide 2021-02- No [id number] 20mg Take 1 [facility] 20 mg 0-05 03- tablet by [facility] of tablet 00:00: 00:00 mouth [place] 00 :00 daily. [facility] benzonatate 2021-02- No [id number] 200mg Take 1 [facility] 200 mg 0-21 12-09 capsule by [facility] of capsule 00:00: 00:00 mouth 3 [place] 00 :00 (three) Medical times Branch daily as needed for Cough. atorvastati 2021-02- No [id number] 40mg Take 1 [facility] n 40 mg 0-21 12-09 tablet by [facility] of tablet 00:00: 00:00 mouth at [place] 00 :00 bedtime. [facility] benzonatate 2021-02- No [id number] 200mg Take 1 [facility] 200 mg 0-21 12-09 capsule by [facility] of capsule 00:00: 00:00 mouth 3 [place] 00 :00 (three) Medical times Branch daily as needed for Cough. atorvastati 2021-02- No [id number] 40mg Take 1 [facility] n 40 mg 0-21 12-09 tablet by [facility] of tablet 00:00: 00:00 mouth at [place] 00 :00 bedtime. [facility] losartan 50 2021-0 Yes [id number] 25mg Take 0.5 [facility] mg tablet 9-12 tablets by it[facility] of 00:00: mouth [place] 00 every Medical evening. Branch losartan 50 2021-0 Yes [id number] 25mg Take 0.5 [facility] mg tablet 9-12 tablets by it[facility] of 00:00: mouth [place] 00 every Medical evening. Branch losartan 50 2021-0 Yes [id number] 25mg Take 0.5 [facility] mg tablet 9-12 tablets by it[facility] of 00:00: mouth [place] 00 every Medical evening. Branch losartan 50 2021-0 Yes [id number] 25mg Take 0.5 [facility] mg tablet 9-12 tablets by it[facility] of 00:00: mouth [place] 00 every Medical evening. Branch losartan 50 2021-0 Yes [id number] 25mg Take 0.5 [facility] mg tablet 9-12 tablets by it[facility] of 00:00: mouth [place] 00 every Medical evening. Branch losartan 50 2021-0 Yes [id number] 25mg Take 0.5 [facility] mg tablet 9-12 tablets by it[facility] of 00:00: mouth [place] 00 every Medical evening. Branch losartan 50 2021-0 Yes [id number] 25mg Take 0.5 [facility] mg tablet 9-12 tablets by it[facility] of 00:00: mouth [place] 00 every Medical evening. Branch losartan 50 2021-0 Yes [id number] 25mg Take 0.5 [facility] mg tablet 9-12 tablets by it[facility] of 00:00: mouth [place] 00 every Medical evening. Branch losartan 50 2021-0 Yes [id number] 25mg Take 0.5 [facility] mg tablet 9-12 tablets by it[facility] of 00:00: mouth [place] 00 every Medical evening. Branch losartan 50 2021-0 Yes [id number] 25mg Take 0.5 [facility] mg tablet 9-12 tablets by it[facility] of 00:00: mouth [place] 00 every Medical evening. Branch losartan 50 2021-0 Yes [id number] 25mg Take 0.5 [facility] mg tablet 9-12 tablets by ity of 00:00: mouth [place] 00 every Medical evening. Branch losartan 50 2021-0 Yes [id number] 25mg Take 0.5 [facility] mg tablet 9-12 tablets by ity of 00:00: mouth [place] 00 every Medical evening. Branch losartan 50 2021-0 Yes [id number] 25mg Take 0.5 [facility] mg tablet 9-12 tablets by it[facility] of 00:00: mouth [place] 00 every Medical evening. Branch losartan 50 2021-0 2- No [id number] 25mg Take 0.5 [facility] mg tablet 9-12 10-21 tablets by ity of 00:00: 00:00 mouth [place] 00 :00 every Medical evening. Branch losartan 50 2-0 2022- No [id number] 25mg Take 0.5 [facility] mg tablet 9-12 10-21 tablets by ity of 00:00: 00:00 mouth [place] 00 :00 every Medical evening. Branch metFORMIN 2022-0 Yes 500mg Take 1 [...] o f ORAL 14:50: 00:00 Managed by [place] 14 :00 Dr. Cuenca [facility] losartan 50 2021-0 2- No [id number] 50mg Take 1 [facility] mg tablet 08-27-12 tablet by ity of 00:00: 00:00 mouth [place] 00 :00 daily. [facility] losartan 50 2021-0 2021- No [id number] 50mg Take 1 [facility] mg tablet 05-04-15 tablet by ity of 00:00: 00:00 mouth 2 [place] 00 :00 (two) Medical times Branch daily. furosemide 2021-0 Yes 40mg Take 1 Un[facility] [...] 00 :00 daily. Medical Branch furosemide 2022-0 2021- No 40mg Take 1 [facility] ers 40 mg 3-17 10-21 tablet by it[facility] of tablet 00:00: 00:00 mouth [place] 00 :00 daily. [facility]-02 Yes [id number] 40mg TAKE 1 [facility] N 40 mg 2-13 TABLET BY ity of tablet 00:00: MOUTH AT [place] [facility] 2020-02 Yes [id number] 40mg TAKE 1 [facility] N 40 mg 2-13 TABLET BY ity of tablet 00:00: MOUTH AT [place] [facility] 2020-02 Yes [id number] 40mg TAKE 1 [facility] N 40 mg 2-13 TABLET BY ity of tablet 00:00: MOUTH AT [place] [facility] 2020-02 Yes [id number] 40mg TAKE 1 [facility] N 40 mg 2-13 TABLET BY ity of tablet 00:00: MOUTH AT [place] [facility] 2020-02 Yes [id number] 40mg TAKE 1 [facility] N 40 mg 2-13 TABLET BY ity of tablet 00:00: MOUTH AT [place] [facility] 2020-02 Yes [id number] 40mg TAKE 1 [facility] N 40 mg 2-13 TABLET BY ity of tablet 00:00: MOUTH AT [place] [facility] 2020-02 Yes [id number] 40mg TAKE 1 [facility] N 40 mg 2-13 TABLET BY ity of tablet 00:00: MOUTH AT [place] [facility] 2020-02 Yes [id number] 40mg TAKE 1 [facility] N 40 mg 2-13 TABLET BY ity of tablet 00:00: MOUTH AT [place] [facility] 2020-02 Yes [id number] 40mg TAKE 1 [facility] N 40 mg 2-13 TABLET BY ity of tablet 00:00: MOUTH AT [place] [facility] 2020-02 Yes [id number] 40mg TAKE 1 [facility] N 40 mg 2-13 TABLET BY ity of tablet 00:00: MOUTH AT [address] 2020-02 Yes [id number] 40mg TAKE 1 [facility] N 40 mg 2-13 TABLET BY ity of tablet 00:00: MOUTH AT [address] 2020-02 Yes [id number] 40mg TAKE 1 [facility] N 40 mg 2-13 TABLET BY ity of tablet 00:00: MOUTH AT [place] 00 [facility] 2020-02 Yes [id number] 40mg TAKE 1 [facility] N 40 mg 2-13 TABLET BY ity of tablet 00:00: MOUTH AT [place] 00 [facility] 2020-02 Yes [id number] 40mg TAKE 1 [facility] N 40 mg 2-13 TABLET BY ity of tablet 00:00: MOUTH AT [place] 00 [facility] 2020-02- No [id number] 40mg TAKE 1 [facility] N 40 mg 2-13 10-21 TABLET BY ity of tablet 00:00: 00:00 MOUTH AT [place] 00 :00 [facility] 2020-02- No [id number] 40mg TAKE 1 [facility] N 40 mg 2-13 10-21 TABLET BY ity of tablet 00:00: 00:00 MOUTH AT [place] 00 :00 [facility] 2020-02- No [id number] 40mg TAKE 1 [facility] N 40 mg 2-13 10-21 TABLET BY ity of tablet 00:00: 00:00 MOUTH AT [place] 00 :00 [facility] azelastine 2020-02 Yes [id number] 1{spray Use 1 [facility] 137 mcg 2-02 } [place] in ity of (0.1 %) 00:00: each [place] nasal spray 00 nostril 2 Med ical (two) Branch times daily. Use in each nostril as directed fluticasone 2020-02 Yes [id number] 2{puff} Inhale 2 [facility] propionate 2-02 Puffs 2 ity of (FLOVENT 00:00: (two) [place] HFA) 44 00 times Medical mcg/actuati daily. Branch on inhaler Rinse mouth after each use. azelastine 2020-02 Yes [id number] 1{spray Use 1 [facility] 137 mcg 2-02 } [place] in ity of (0.1 %) 00:00: each [place] nasal spray 00 nostril 2 Med ical (two) Branch times daily. Use in each nostril as directed fluticasone 2020-02 Yes [id number] 2{puff} Inhale 2 [facility] propionate 2-02 Puffs 2 ity of (FLOVENT 00:00: (two) [place] HFA) 44 00 times Medical mcg/actuati daily. Branch on inhaler Rinse mouth after each use. azelastine 2020-02 Yes [id number] 1{spray Use 1 [facility] 137 mcg 2-02 } [place] in ity of (0.1 %) 00:00: each [place] nasal spray 00 nostril 2 Med ical (two) Branch times daily. Use in each nostril as directed fluticasone 2020-02 Yes [id number] 2{puff} Inhale 2 [facility] propionate 2-02 Puffs 2 ity of (FLOVENT 00:00: (two) [place] HFA) 44 00 times Medical mcg/actuati daily. Branch on inhaler Rinse mouth after each use. azelastine 2020-02 Yes [id number] 1{spray Use 1 [facility] 137 mcg 2-02 } [place] in ity of (0.1 %) 00:00: each [place] nasal spray 00 nostril 2 Med ical (two) Branch times daily. Use in each nostril as directed fluticasone 2020-02 Yes [id number] 2{puff} Inhale 2 [facility] propionate 2-02 Puffs 2 ity of (FLOVENT 00:00: (two) [place] HFA) 44 00 times Medical mcg/actuati daily. Branch on inhaler Rinse mouth after each use. azelastine 2020-02 Yes [id number] 1{spray Use 1 [facility] 137 mcg 2-02 } [place] in ity of (0.1 %) 00:00: each [place] nasal spray 00 nostril 2 Med ical (two) Branch times daily. Use in each nostril as directed fluticasone 2020-02 Yes [id number] 2{puff} Inhale 2 [facility] propionate 2-02 Puffs 2 ity of (FLOVENT 00:00: (two) [place] HFA) 44 00 times Medical mcg/actuati daily. Branch on inhaler Rinse mouth after each use. azelastine 2020-02 Yes [id number] 1{spray Use 1 [facility] 137 mcg 2-02 } [place] in ity of (0.1 %) 00:00: each [place] nasal spray 00 nostril 2 Med ical (two) Branch times daily. Use in each nostril as directed fluticasone 2020-02 Yes [id number] 2{puff} Inhale 2 [facility] propionate 2-02 Puffs 2 ity of (FLOVENT 00:00: (two) [place] HFA) 44 00 times Medical mcg/actuati daily. Branch on inhaler Rinse mouth after each use. azelastine 2020-02 Yes [id number] 1{spray Use 1 [facility] 137 mcg 2-02 } [place] in ity of (0.1 %) 00:00: each [place] nasal spray 00 nostril 2 Med ical (two) Branch times daily. Use in each nostril as directed fluticasone 2020-02 Yes [id number] 2{puff} Inhale 2 [facility] propionate 2-02 Puffs 2 ity of (FLOVENT 00:00: (two) [place] HFA) 44 00 times Medical mcg/actuati daily. Branch on inhaler Rinse mouth after each use. azelastine 2020-02 Yes [id number] 1{spray Use 1 [facility] 137 mcg 2-02 } [place] in ity of (0.1 %) 00:00: each [place] nasal spray 00 nostril 2 Med ical (two) Branch times daily. Use in each nostril as directed fluticasone 2020-02 Yes [id number] 2{puff} Inhale 2 [facility] propionate 2-02 Puffs 2 ity of (FLOVENT 00:00: (two) [place] HFA) 44 00 times Medical mcg/actuati daily. Branch on inhaler Rinse mouth after each use. azelastine 2020-02 Yes [id number] 1{spray Use 1 [facility] 137 mcg 2-02 } [place] in ity of (0.1 %) 00:00: each [place] nasal spray 00 nostril 2 Med ical (two) Branch times daily. Use in each nostril as directed fluticasone 2020-02 Yes [id number] 2{puff} Inhale 2 [facility] propionate 2-02 Puffs 2 ity of (FLOVENT 00:00: (two) [place] HFA) 44 00 times Medical mcg/actuati daily. Branch on inhaler Rinse mouth after each use. azelastine 2020-02 Yes [id number] 1{spray Use 1 [facility] 137 mcg 2-02 } [place] in ity of (0.1 %) 00:00: each [place] nasal spray 00 nostril 2 Med ical (two) Branch times daily. Use in each nostril as directed fluticasone 2020-02 Yes [id number] 2{puff} Inhale 2 [facility] propionate 2-02 Puffs 2 ity of (FLOVENT 00:00: (two) [place] HFA) 44 00 times Medical mcg/actuati daily. Branch on inhaler Rinse mouth after each use. azelastine 2020-02 Yes [id number] 1{spray Use 1 [facility] 137 mcg 2-02 } [place] in ity of (0.1 %) 00:00: each [place] nasal spray 00 nostril 2 Med ical (two) Branch times daily. Use in each nostril as directed fluticasone 2020-02 Yes [id number] 2{puff} Inhale 2 [facility] propionate 2-02 Puffs 2 ity of (FLOVENT 00:00: (two) [place] HFA) 44 00 times Medical mcg/actuati daily. Branch on inhaler Rinse mouth after each use. azelastine 2020-02 Yes [id number] 1{spray Use 1 [facility] 137 mcg 2-02 } [place] in ity of (0.1 %) 00:00: each [place] nasal spray 00 nostril 2 Med ical (two) Branch times daily. Use in each nostril as directed fluticasone 2020-02 Yes [id number] 2{puff} Inhale 2 [facility] propionate 2-02 Puffs 2 ity of (FLOVENT 00:00: (two) [place] HFA) 44 00 times Medical mcg/actuati daily. Branch on inhaler Rinse mouth after each use. azelastine 2020-02 Yes [id number] 1{spray Use 1 [facility] 137 mcg 2-02 } [place] in ity of (0.1 %) 00:00: each [place] nasal spray 00 nostril 2 Med ical (two) Branch times daily. Use in each nostril as directed fluticasone 2020-02 Yes [id number] 2{puff} Inhale 2 [facility] propionate 2-02 Puffs 2 ity of (FLOVENT 00:00: (two) [place] HFA) 44 00 times Medical mcg/actuati daily. Branch on inhaler Rinse mouth after each use. azelastine 2020-02 Yes [id number] 1{spray Use 1 [facility] 137 mcg 2-02 } [place] in ity of (0.1 %) 00:00: each [place] nasal spray 00 nostril 2 Med ical (two) Branch times daily. Use in each nostril as directed fluticasone 2020-02 Yes [id number] 2{puff} Inhale 2 [facility] propionate 2-02 Puffs 2 ity of (FLOVENT 00:00: (two) [place] HFA) 44 00 times Medical mcg/actuati daily. Branch on inhaler Rinse mouth after each use. azelastine 2020-02 Yes [id number] 1{spray Use 1 [facility] 137 mcg 2-02 } [place] in ity of (0.1 %) 00:00: each [place] nasal spray 00 nostril 2 Med ical (two) Branch times daily. Use in each nostril as directed fluticasone 2020-02 Yes [id number] 2{puff} Inhale 2 [facility] propionate 2-02 Puffs 2 ity of (FLOVENT 00:00: (two) [place] HFA) 44 00 times Medical mcg/actuati daily. Branch on inhaler Rinse mouth after each use. azelastine 2020-02 Yes [id number] 1{spray Use 1 [facility] 137 mcg 2-02 } [place] in ity of (0.1 %) 00:00: each [place] nasal spray 00 nostril 2 Med ical (two) Branch times daily. Use in each nostril as directed fluticasone 2020-02 Yes [id number] 2{puff} Inhale 2 [facility] propionate 2-02 Puffs 2 ity of (FLOVENT 00:00: (two) [place] HFA) 44 00 times Medical mcg/actuati daily. Branch on inhaler Rinse mouth after each use. azelastine 2020-02 Yes [id number] 1{spray Use 1 [facility] 137 mcg 2-02 } [place] in ity of (0.1 %) 00:00: each [place] nasal spray 00 nostril 2 Med ical (two) Branch times daily. Use in each nostril as directed fluticasone 2020-02 Yes [id number] 2{puff} Inhale 2 [facility] propionate 2-02 Puffs 2 ity of (FLOVENT 00:00: (two) [place] HFA) 44 00 times Medical mcg/actuati daily. Branch on inhaler Rinse mouth after each use. azelastine 2020-02 Yes [id number] 1{spray Use 1 [facility] 137 mcg 2-02 } [place] in ity of (0.1 %) 00:00: each [place] nasal spray 00 nostril 2 Med ical (two) Branch times daily. Use in each nostril as directed fluticasone 2020-02 Yes [id number] 2{puff} Inhale 2 [facility] propionate 2-02 Puffs 2 ity of (FLOVENT 00:00: (two) [place] HFA) 44 00 times Medical mcg/actuati daily. Branch on inhaler Rinse mouth after each use. azelastine 2020-02 Yes [id number] 1{spray Use 1 [facility] 137 mcg 2-02 } [place] in ity of (0.1 %) 00:00: each [place] nasal spray 00 nostril 2 Med ical (two) Branch times daily. Use in each nostril as directed fluticasone 2020-02 Yes [id number] 2{puff} Inhale 2 [facility] propionate 2-02 Puffs 2 ity of (FLOVENT 00:00: (two) [place] HFA) 44 00 times Medical mcg/actuati daily. Branch on inhaler Rinse mouth after each use. azelastine 2020-02 Yes [id number] 1{spray Use 1 [facility] 137 mcg 2-02 } [place] in ity of (0.1 %) 00:00: each [place] nasal spray 00 nostril 2 Med ical (two) Branch times daily. Use in each nostril as directed fluticasone 2020-02 Yes [id number] 2{puff} Inhale 2 Univers propionate 2-02 Puffs 2 ity of (FLOVENT 00:00: (two) [place] [facility]) 44 00 times Medical mcg/actuati daily. Branch on inhaler Rinse mouth after each use. azelastine 2020-02 Yes [id number] 1{spray Use 1 [facility] 137 mcg 2-02 } [place] in ity of (0.1 %) 00:00: each [place] nasal spray 00 nostril 2 Med ical (two) Branch times daily. Use in each nostril as directed fluticasone 2020-02 Yes [id number] 2{puff} Inhale 2 [facility] propionate 2-02 Puffs 2 [facility]y of (FLOVENT 00:00: (two) [place] [facility]FA) 44 00 times Medical mcg/actuati daily. Branch on inhaler Rinse mouth after each use. azelastine 2020-02 Yes [id number] 1{spray Use 1 [facility] 137 mcg 2-02 } [place] in ity of (0.1 %) 00:00: each [place] nasal spray 00 nostril 2 Med ical (two) Branch times daily. Use in each nostril as directed fluticasone 2020-02 Yes [id number] 2{puff} Inhale 2 [facility] propionate 2-02 Puffs 2 [facility]y of (FLOVENT 00:00: (two) [place] [facility]FA) 44 00 times Medical mcg/actuati daily. Branch on inhaler Rinse mouth after each use. azelastine 2020-02 Yes [id number] 1{spray Use 1 [facility] 137 mcg 2-02 } [place] in ity of (0.1 %) 00:00: each [place] nasal spray 00 nostril 2 Med ical (two) Branch times daily. Use in each nostril as directed fluticasone 2020-02 Yes [id number] 2{puff} Inhale 2 [facility] propionate 2-02 Puffs 2 [facility]y of (FLOVENT 00:00: (two) [place] [facility]FA) 44 00 times Medical mcg/actuati daily. Branch on inhaler Rinse mouth after each use. azelastine 2020-02 Yes [id number] 1{spray Use 1 [facility] 137 mcg 2-02 } [place] in ity of (0.1 %) 00:00: each [place] nasal spray 00 nostril 2 Med ical (two) Branch times daily. Use in each nostril as directed fluticasone 2020-02 Yes [id number] 2{puff} Inhale 2 [facility] propionate 2-02 Puffs 2 [facility]y of (FLOVENT 00:00: (two) [place] [facility]FA) 44 00 times Medical mcg/actuati daily. Branch on inhaler Rinse mouth after each use. azelastine 2020-02 Yes [id number] 1{spray Use 1 [facility] 137 mcg 2-02 } [place] in ity of (0.1 %) 00:00: each [place] nasal spray 00 nostril 2 Med ical (two) Branch times daily. Use in each nostril as directed fluticasone 2020-02 Yes [id number] 2{puff} Inhale 2 [facility] propionate 2-02 Puffs 2 [facility]y of (FLOVENT 00:00: (two) [place] [facility]FA) 44 00 times Medical mcg/actuati daily. Branch on inhaler Rinse mouth after each use. azelastine 2020-02 Yes [id number] 1{spray Use 1 [facility] 137 mcg 2-02 } [place] in ity of (0.1 %) 00:00: each [place] nasal spray 00 nostril 2 Med ical (two) Branch times daily. Use in each nostril as directed fluticasone 2020-02 Yes [id number] 2{puff} Inhale 2 [facility] propionate 2-02 Puffs 2 [facility]y of (FLOVENT 00:00: (two) [place] [facility]FA) 44 00 times Medical mcg/actuati daily. Branch on inhaler Rinse mouth after each use. azelastine 2020-02 Yes [id number] 1{spray Use 1 [facility] 137 mcg 2-02 } [place] in ity of (0.1 %) 00:00: each [place] nasal spray 00 nostril 2 Med ical (two) Branch times daily. Use in each nostril as directed fluticasone 2020-02 Yes [id number] 2{puff} Inhale 2 [facility] propionate 2-02 Puffs 2 [facility]y of (FLOVENT 00:00: (two) [place] [facility]) 44 00 times Medical mcg/actuati daily. Branch on inhaler Rinse mouth after each use. azelastine 2020-02 Yes [id number] 1{spray Use 1 [facility] 137 mcg 2-02 } [place] in ity of (0.1 %) 00:00: each [place] nasal spray 00 nostril 2 Med ical (two) Branch times daily. Use in each nostril as directed fluticasone 2020-02 Yes [id number] 2{puff} Inhale 2 [facility] propionate 2-02 Puffs 2 ity of (FLOVENT 00:00: (two) [place] [facility]) 44 00 times Medical mcg/actuati daily. Branch on inhaler Rinse mouth after each use. azelastine 2020-02 Yes [id number] 1{spray Use 1 [facility] 137 mcg 2-02 } [place] in ity of (0.1 %) 00:00: each [place] nasal spray 00 nostril 2 Med ical (two) Branch times daily. Use in each nostril as directed fluticasone 2020-02 Yes [id number] 2{puff} Inhale 2 [facility] propionate 2-02 Puffs 2 [facility]y of (FLOVENT 00:00: (two) [place] [facility]) 44 00 times Medical mcg/actuati daily. Branch on inhaler Rinse mouth after each use. azelastine 2020-02 Yes [id number] 1{spray Use 1 [facility] 137 mcg 2-02 } [place] in [facility]y of (0.1 %) 00:00: each [place] nasal spray 00 nostril 2 Med ical (two) Branch times daily. Use in each nostril as directed fluticasone 2020-02 Yes [id number] 2{puff} Inhale 2 [facility] propionate 2-02 Puffs 2 ity of (FLOVENT 00:00: (two) [place] [facility]) 44 00 times Medical mcg/actuati daily. Branch on inhaler Rinse mouth after each use. azelastine 2020-02 Yes [id number] 1{spray Use 1 [facility] 137 mcg 2-02 } [place] in ity of (0.1 %) 00:00: each [place] nasal spray 00 nostril 2 Med ical (two) Branch times daily. Use in each nostril as directed fluticasone 2020-02 Yes [id number] 2{puff} Inhale 2 [facility] propionate 2-02 Puffs 2 ity of (FLOVENT 00:00: (two) [place] [facility]) 44 00 times Medical mcg/actuati daily. Branch on inhaler Rinse mouth after each use. azelastine 2020-02 Yes [id number] 1{spray Use 1 [facility] 137 mcg 2-02 } [place] in ity of (0.1 %) 00:00: each [place] nasal spray 00 nostril 2 Med ical (two) Branch times daily. Use in each nostril as directed fluticasone 2020-02 Yes [id number] 2{puff} Inhale 2 [facility] propionate 2-02 Puffs 2 [facility]y of (FLOVENT 00:00: (two) [place] [facility]) 44 00 times Medical mcg/actuati daily. Branch on inhaler Rinse mouth after each use. azelastine 2020-02 Yes [id number] 1{spray Use 1 [facility] 137 mcg 2-02 } [place] in ity of (0.1 %) 00:00: each [place] nasal spray 00 nostril 2 Med ical (two) Branch times daily. Use in each nostril as directed fluticasone 2020-02 Yes [id number] 2{puff} Inhale 2 [facility] propionate 2-02 Puffs 2 ity of (FLOVENT 00:00: (two) [place] [facility]) 44 00 times Medical mcg/actuati daily. Branch on inhaler Rinse mouth after each use. azelastine 2020-02 Yes [id number] 1{spray Use 1 [facility] 137 mcg 2-02 } [place] in ity of (0.1 %) 00:00: each [place] nasal spray 00 nostril 2 Med ical (two) Branch times daily. Use in each nostril as directed fluticasone 2020-02 Yes [id number] 2{puff} Inhale 2 [facility] propionate 2-02 Puffs 2 [facility]y of (FLOVENT 00:00: (two) [place] [facility]) 44 00 times Medical mcg/actuati daily. Branch on inhaler Rinse mouth after each use. azelastine 2020-02 Yes [id number] 1{spray Use 1 [facility] 137 mcg 2-02 } [place] in ity of (0.1 %) 00:00: each [place] nasal spray 00 nostril 2 Med ical (two) Branch times daily. Use in each nostril as directed fluticasone 2020-02 Yes [id number] 2{puff} Inhale 2 [facility] propionate 2-02 Puffs 2 ity of (FLOVENT 00:00: (two) [place] [facility]FA) 44 00 times Medical mcg/actuati daily. Branch on inhaler Rinse mouth after each use. azelastine 2020-02 Yes [id number] 1{spray Use 1 [facility] 137 mcg 2-02 } [place] in ity of (0.1 %) 00:00: each [place] nasal spray 00 nostril 2 Med ical (two) Branch times daily. Use in each nostril as directed fluticasone 2020-02 Yes [id number] 2{puff} Inhale 2 [facility] propionate 2-02 Puffs 2 ity of (FLOVENT 00:00: (two) [place] [facility]) 44 00 times Medical mcg/actuati daily. Branch on inhaler Rinse mouth after each use. azelastine 2020-02 Yes [id number] 1{spray Use 1 [facility] 137 mcg 2-02 } [place] in ity of (0.1 %) 00:00: each [place] nasal spray 00 nostril 2 Med ical (two) Branch times daily. Use in each nostril as directed fluticasone 2020-02 Yes [id number] 2{puff} Inhale 2 [facility] propionate 2-02 Puffs 2 ity of (FLOVENT 00:00: (two) [place] [facility]) 44 00 times Medical mcg/actuati daily. Branch on inhaler Rinse mouth after each use. azelastine 2020-02 Yes [id number] 1{spray Use 1 [facility] 137 mcg 2-02 } [place] in ity of (0.1 %) 00:00: each [place] nasal spray 00 nostril 2 Med ical (two) Branch times daily. Use in each nostril as directed fluticasone 2020-02 Yes [id number] 2{puff} Inhale 2 [facility] propionate 2-02 Puffs 2 [facility]y of (FLOVENT 00:00: (two) [place] [facility]) 44 00 times Medical mcg/actuati daily. Branch on inhaler Rinse mouth after each use. azelastine 2020-02 Yes [id number] 1{spray Use 1 [facility] 137 mcg 2-02 } [place] in ity of (0.1 %) 00:00: each [place] nasal spray 00 nostril 2 Med ical (two) Branch times daily. Use in each nostril as directed fluticasone 2020-02 Yes [id number] 2{puff} Inhale 2 [facility] propionate 2-02 Puffs 2 ity of (FLOVENT 00:00: (two) [place] [facility]) 44 00 times Medical mcg/actuati daily. Branch on inhaler Rinse mouth after each use. azelastine 2020-02 Yes [id number] 1{spray Use 1 [facility] 137 mcg 2-02 } [place] in ity of (0.1 %) 00:00: each [place] nasal spray 00 nostril 2 Med ical (two) Branch times daily. Use in each nostril as directed fluticasone 2020-02 Yes [id number] 2{puff} Inhale 2 [facility] propionate 2-02 Puffs 2 ity of (FLOVENT 00:00: (two) [place] [facility]) 44 00 times Medical mcg/actuati daily. Branch on inhaler Rinse mouth after each use. azelastine 2020-02 Yes [id number] 1{spray Use 1 [facility] 137 mcg 2-02 } [place] in ity of (0.1 %) 00:00: each [place] nasal spray 00 nostril 2 Med ical (two) Branch times daily. Use in each nostril as directed fluticasone 2020-02 Yes [id number] 2{puff} Inhale 2 [facility] propionate 2-02 Puffs 2 ity of (FLOVENT 00:00: (two) [place] [facility]) 44 00 times Medical mcg/actuati daily. Branch on inhaler Rinse mouth after each use. azelastine 2020-02 Yes [id number] 1{spray Use 1 [facility] 137 mcg 2-02 } [place] in ity of (0.1 %) 00:00: each [place] nasal spray 00 nostril 2 Med ical (two) Branch times daily. Use in each nostril as directed fluticasone 2020-02 Yes [id number] 2{puff} Inhale 2 [facility] propionate 2-02 Puffs 2 ity of (FLOVENT 00:00: (two) [place] [facility]) 44 00 times Medical mcg/actuati daily. Branch on inhaler Rinse mouth after each use. azelastine 2020-02 Yes [id number] 1{spray Use 1 [facility] 137 mcg 2-02 } [place] in ity of (0.1 %) 00:00: each [place] nasal spray 00 nostril 2 Med ical (two) Branch times daily. Use in each nostril as directed fluticasone 2020-02 Yes [id number] 2{puff} Inhale 2 [facility] propionate 2-02 Puffs 2 ity of (FLOVENT 00:00: (two) [place] [facility]FA) 44 00 times Medical mcg/actuati daily. Branch on inhaler Rinse mouth after each use. azelastine 2020-02 Yes [id number] 1{spray Use 1 [facility] 137 mcg 2-02 } [place] in ity of (0.1 %) 00:00: each [place] nasal spray 00 nostril 2 Med ical (two) Branch times daily. Use in each nostril as directed fluticasone 2020-02 Yes [id number] 2{puff} Inhale 2 [facility] propionate 2-02 Puffs 2 ity of (FLOVENT 00:00: (two) [place] [facility]) 44 00 times Medical mcg/actuati daily. Branch on inhaler Rinse mouth after each use. azelastine 2020-02 Yes [id number] 1{spray Use 1 [facility] 137 mcg 2-02 } [place] in ity of (0.1 %) 00:00: each [place] nasal spray 00 nostril 2 Med ical (two) Branch times daily. Use in each nostril as directed fluticasone 2020-02 Yes [id number] 2{puff} Inhale 2 [facility] propionate 2-02 Puffs 2 ity of (FLOVENT 00:00: (two) [place] [facility]) 44 00 times Medical mcg/actuati daily. Branch on inhaler Rinse mouth after each use. azelastine 2020-02 Yes [id number] 1{spray Use 1 [facility] 137 mcg 2-02 } [place] in ity of (0.1 %) 00:00: each [place] nasal spray 00 nostril 2 Med ical (two) Branch times daily. Use in each nostril as directed fluticasone 2020-02 Yes [id number] 2{puff} Inhale 2 [facility] propionate 2-02 Puffs 2 ity of (FLOVENT 00:00: (two) [place] [facility]FA) 44 00 times Medical mcg/actuati daily. Branch on inhaler Rinse mouth after each use. azelastine 2020-02 Yes [id number] 1{spray Use 1 [facility] 137 mcg 2-02 } [place] in ity of (0.1 %) 00:00: each [place] nasal spray 00 nostril 2 Med ical (two) Branch times daily. Use in each nostril as directed fluticasone 2020-02 Yes [id number] 2{puff} Inhale 2 [facility] propionate 2-02 Puffs 2 ity of (FLOVENT 00:00: (two) [place] [facility]FA) 44 00 times Medical mcg/actuati daily. Branch on inhaler Rinse mouth after each use. azelastine 2020-02 Yes [id number] 1{spray Use 1 [facility] 137 mcg 2-02 } [place] in ity of (0.1 %) 00:00: each [place] nasal spray 00 nostril 2 Med ical (two) Branch times daily. Use in each nostril as directed fluticasone 2020-02 Yes [id number] 2{puff} Inhale 2 [facility] propionate 2-02 Puffs 2 ity of (FLOVENT 00:00: (two) [place] [facility]FA) 44 00 times Medical mcg/actuati daily. Branch on inhaler Rinse mouth after each use. azelastine 2020-02 Yes [id number] 1{spray Use 1 [facility] 137 mcg 2-02 } [place] in ity of (0.1 %) 00:00: each [place] nasal spray 00 nostril 2 Med ical (two) Branch times daily. Use in each nostril as directed fluticasone 2020-02 Yes [id number] 2{puff} Inhale 2 [facility] propionate 2-02 Puffs 2 ity of (FLOVENT 00:00: (two) [place] [facility]FA) 44 00 times Medical mcg/actuati daily. Branch on inhaler Rinse mouth after each use. azelastine 2020-02 Yes [id number] 1{spray Use 1 [facility] 137 mcg 2-02 } [place] in ity of (0.1 %) 00:00: each [place] nasal spray 00 nostril 2 Med ical (two) Branch times daily. Use in each nostril as directed fluticasone 2020-02 Yes [id number] 2{puff} Inhale 2 [facility] propionate 2-02 Puffs 2 ity of (FLOVENT 00:00: (two) [place] [facility]FA) 44 00 times Medical mcg/actuati daily. Branch on inhaler Rinse mouth after each use. azelastine 2020-02 Yes [id number] 1{spray Use 1 [facility] 137 mcg 2-02 } [place] in ity of (0.1 %) 00:00: each [place] nasal spray 00 nostril 2 Med ical (two) Branch times daily. Use in each nostril as directed fluticasone 2020-02 Yes [id number] 2{puff} Inhale 2 [facility] propionate 2-02 Puffs 2 ity of (FLOVENT 00:00: (two) [place] [facility]FA) 44 00 times Medical mcg/actuati daily. Branch on inhaler Rinse mouth after each use. azelastine 2020-02 Yes [id number] 1{spray Use 1 [facility] 137 mcg 2-02 } [place] in ity of (0.1 %) 00:00: each [place] nasal spray 00 nostril 2 Med ical (two) Branch times daily. Use in each nostril as directed fluticasone 2020-02 Yes [id number] 2{puff} Inhale 2 [facility] propionate 2-02 Puffs 2 ity of (FLOVENT 00:00: (two) [place] [facility]FA) 44 00 times Medical mcg/actuati daily. Branch on inhaler Rinse mouth after each use. azelastine 2020-02 Yes [id number] 1{spray Use 1 [facility] 137 mcg 2-02 } [place] in ity of (0.1 %) 00:00: each [place] nasal spray 00 nostril 2 Med ical (two) Branch times daily. Use in each nostril as directed fluticasone 2020-02 Yes [id number] 2{puff} Inhale 2 [facility] propionate 2-02 Puffs 2 ity of (FLOVENT 00:00: (two) [place] [facility]FA) 44 00 times Medical mcg/actuati daily. Branch on inhaler Rinse mouth after each use. azelastine 2020-02 Yes [id number] 1{spray Use 1 [facility] 137 mcg 2-02 } [place] in ity of (0.1 %) 00:00: each [place] nasal spray 00 nostril 2 Med ical (two) Branch times daily. Use in each nostril as directed fluticasone 2020-02 Yes [id number] 2{puff} Inhale 2 [facility] propionate 2-02 Puffs 2 ity of (FLOVENT 00:00: (two) [place] [facility]FA) 44 00 times Medical mcg/actuati daily. Branch on inhaler Rinse mouth after each use. azelastine 2020-02 Yes [id number] 1{spray Use 1 [facility] 137 mcg 2-02 } [place] in ity of (0.1 %) 00:00: each [place] nasal spray 00 nostril 2 Med ical (two) Branch times daily. Use in each nostril as directed fluticasone 2020-02 Yes [id number] 2{puff} Inhale 2 [facility] propionate 2-02 Puffs 2 ity of (FLOVENT 00:00: (two) [place] [facility]FA) 44 00 times Medical mcg/actuati daily. Branch on inhaler Rinse mouth after each use. azelastine 2020-02 Yes [id number] 1{spray Use 1 [facility] 137 mcg 2-02 } [place] in ity of (0.1 %) 00:00: each [place] nasal spray 00 nostril 2 Med ical (two) Branch times daily. Use in each nostril as directed fluticasone 2020-02 Yes [id number] 2{puff} Inhale 2 [facility] propionate 2-02 Puffs 2 ity of (FLOVENT 00:00: (two) [place] [facility]FA) 44 00 times Medical mcg/actuati daily. Branch on inhaler Rinse mouth after each use. azelastine 2020-02 Yes [id number] 1{spray Use 1 [facility] 137 mcg 2-02 } [place] in ity of (0.1 %) 00:00: each [place] nasal spray 00 nostril 2 Med ical (two) Branch times daily. Use in each nostril as directed fluticasone 2020-02 Yes [id number] 2{puff} Inhale 2 [facility] propionate 2-02 Puffs 2 ity of (FLOVENT 00:00: (two) [place] [facility]FA) 44 00 times Medical mcg/actuati daily. Branch on inhaler Rinse mouth after each use. azelastine 2020-02 Yes [id number] 1{spray Use 1 [facility] 137 mcg 2-02 } [place] in ity of (0.1 %) 00:00: each [place] nasal spray 00 nostril 2 Med ical (two) Branch times daily. Use in each nostril as directed fluticasone 2020-02 Yes [id number] 2{puff} Inhale 2 [facility] propionate 2-02 Puffs 2 ity of (FLOVENT 00:00: (two) [place] [facility]FA) 44 00 times Medical mcg/actuati daily. Branch on inhaler Rinse mouth after each use. azelastine 2020-02 Yes [id number] 1{spray Use 1 [facility] 137 mcg 2-02 } [place] in ity of (0.1 %) 00:00: each [place] nasal spray 00 nostril 2 Med ical (two) Branch times daily. Use in each nostril as directed fluticasone 2020-02 Yes [id number] 2{puff} Inhale 2 [facility] propionate 2-02 Puffs 2 ity of (FLOVENT 00:00: (two) [place] [facility]FA) 44 00 times Medical mcg/actuati daily. Branch on inhaler Rinse mouth after each use. azelastine 2020-02 Yes [id number] 1{spray Use 1 [facility] 137 mcg 2-02 } [place] in ity of (0.1 %) 00:00: each [place] nasal spray 00 nostril 2 Med ical (two) Branch times daily. Use in each nostril as directed fluticasone 2020-02 Yes [id number] 2{puff} Inhale 2 [facility] propionate 2-02 Puffs 2 ity of (FLOVENT 00:00: (two) [place] [facility]) 44 00 times Medical mcg/actuati daily. Branch on inhaler Rinse mouth after each use. azelastine 2020-02 Yes [id number] 1{spray Use 1 [facility] 137 mcg 2-02 } [place] in ity of (0.1 %) 00:00: each [place] nasal spray 00 nostril 2 Med ical (two) Branch times daily. Use in each nostril as directed fluticasone 2020-02 Yes [id number] 2{puff} Inhale 2 [facility] propionate 2-02 Puffs 2 ity of (FLOVENT 00:00: (two) [place] [facility]) 44 00 times Medical mcg/actuati daily. Branch on inhaler Rinse mouth after each use. azelastine 2020-02 Yes [id number] 1{spray Use 1 [facility] 137 mcg 2-02 } [place] in ity of (0.1 %) 00:00: each [place] nasal spray 00 nostril 2 Med ical (two) Branch times daily. Use in each nostril as directed fluticasone 2020-02 Yes [id number] 2{puff} Inhale 2 [facility] propionate 2-02 Puffs 2 ity of (FLOVENT 00:00: (two) [place] [facility]) 44 00 times Medical mcg/actuati daily. Branch on inhaler Rinse mouth after each use. azelastine 2020-02 Yes [id number] 1{spray Use 1 [facility] 137 mcg 2-02 } [place] in ity of (0.1 %) 00:00: each [place] nasal spray 00 nostril 2 Med ical (two) Branch times daily. Use in each nostril as directed fluticasone 2020-02 Yes [id number] 2{puff} Inhale 2 [facility] propionate 2-02 Puffs 2 ity of (FLOVENT 00:00: (two) [place] [facility]) 44 00 times Medical mcg/actuati daily. Branch on inhaler Rinse mouth after each use. azelastine 2020-02 Yes [id number] 1{spray Use 1 [facility] 137 mcg 2-02 } [place] in ity of (0.1 %) 00:00: each [place] nasal spray 00 nostril 2 Med ical (two) Branch times daily. Use in each nostril as directed fluticasone 2020-02 Yes [id number] 2{puff} Inhale 2 [facility] propionate 2-02 Puffs 2 ity of (FLOVENT 00:00: (two) [place] [facility]) 44 00 times Medical mcg/actuati daily. Branch on inhaler Rinse mouth after each use. azelastine 2020-02 Yes [id number] 1{spray Use 1 [facility] 137 mcg 2-02 } [place] in ity of (0.1 %) 00:00: each [place] nasal spray 00 nostril 2 Med ical (two) Branch times daily. Use in each nostril as directed fluticasone 2020-02 Yes [id number] 2{puff} Inhale 2 [facility] propionate 2-02 Puffs 2 ity of (FLOVENT 00:00: (two) [place] [facility]) 44 00 times Medical mcg/actuati daily. Branch on inhaler Rinse mouth after each use. azelastine 2020-02 Yes [id number] 1{spray Use 1 [facility] 137 mcg 2-02 } [place] in ity of (0.1 %) 00:00: each [place] nasal spray 00 nostril 2 Med ical (two) Branch times daily. Use in each nostril as directed fluticasone 2020-02 Yes [id number] 2{puff} Inhale 2 [facility] propionate 2-02 Puffs 2 ity of (FLOVENT 00:00: (two) [place] [facility]) 44 00 times Medical mcg/actuati daily. Branch on inhaler Rinse mouth after each use. azelastine 2020-02 Yes [id number] 1{spray Use 1 [facility] 137 mcg 2-02 } [place] in ity of (0.1 %) 00:00: each [place] nasal spray 00 nostril 2 Med ical (two) Branch times daily. Use in each nostril as directed fluticasone 2020-02 Yes [id number] 2{puff} Inhale 2 [facility] propionate 2-02 Puffs 2 ity of (FLOVENT 00:00: (two) [place] [facility]) 44 00 times Medical mcg/actuati daily. Branch on inhaler Rinse mouth after each use. azelastine 2020-02 Yes [id number] 1{spray Use 1 [facility] 137 mcg 2-02 } [place] in ity of (0.1 %) 00:00: each [place] nasal spray 00 nostril 2 Med ical (two) Branch times daily. Use in each nostril as directed fluticasone 2020-02 Yes [id number] 2{puff} Inhale 2 [facility] propionate 2-02 Puffs 2 ity of (FLOVENT 00:00: (two) [place] [facility]FA) 44 00 times Medical mcg/actuati daily. Branch on inhaler Rinse mouth after each use. azelastine 2020-02 Yes [id number] 1{spray Use 1 [facility] 137 mcg 2-02 } [place] in ity of (0.1 %) 00:00: each [place] nasal spray 00 nostril 2 Med ical (two) Branch times daily. Use in each nostril as directed fluticasone 2020-02 Yes [id number] 2{puff} Inhale 2 [facility] propionate 2-02 Puffs 2 ity of (FLOVENT 00:00: (two) [place] [facility]FA) 44 00 times Medical mcg/actuati daily. Branch on inhaler Rinse mouth after each use. azelastine 2020-02 Yes [id number] 1{spray Use 1 [facility] 137 mcg 2-02 } [place] in ity of (0.1 %) 00:00: each [place] nasal spray 00 nostril 2 Med ical (two) Branch times daily. Use in each nostril as directed fluticasone 2020-02 Yes [id number] 2{puff} Inhale 2 [facility] propionate 2-02 Puffs 2 ity of (FLOVENT 00:00: (two) [place] [facility]FA) 44 00 times Medical mcg/actuati daily. Branch on inhaler Rinse mouth after each use. azelastine 2020-02 Yes [id number] 1{spray Use 1 [facility] 137 mcg 2-02 } [place] in ity of (0.1 %) 00:00: each [place] nasal spray 00 nostril 2 Med ical (two) Branch times daily. Use in each nostril as directed fluticasone 2020-02 Yes [id number] 2{puff} Inhale 2 [facility] propionate 2-02 Puffs 2 ity of (FLOVENT 00:00: (two) [place] [facility]FA) 44 00 times Medical mcg/actuati daily. Branch on inhaler Rinse mouth after each use. azelastine 2020-02 Yes [id number] 1{spray Use 1 [facility] 137 mcg 2-02 } [place] in ity of (0.1 %) 00:00: each [place] nasal spray 00 nostril 2 Med ical (two) Branch times daily. Use in each nostril as directed fluticasone 2020-02 Yes [id number] 2{puff} Inhale 2 [facility] propionate 2-02 Puffs 2 ity of (FLOVENT 00:00: (two) [place] [facility]FA) 44 00 times Medical mcg/actuati daily. Branch on inhaler Rinse mouth after each use. azelastine 2020-02 Yes [id number] 1{spray Use 1 [facility] 137 mcg 2-02 } [place] in ity of (0.1 %) 00:00: each [place] nasal spray 00 nostril 2 Med ical (two) Branch times daily. Use in each nostril as directed fluticasone 2020-02 Yes [id number] 2{puff} Inhale 2 [facility] propionate 2-02 Puffs 2 ity of (FLOVENT 00:00: (two) [place] [facility]FA) 44 00 times Medical mcg/actuati daily. Branch on inhaler Rinse mouth after each use. azelastine 2020-02 Yes [id number] 1{spray Use 1 [facility] 137 mcg 2-02 } [place] in ity of (0.1 %) 00:00: each [place] nasal spray 00 nostril 2 Med ical (two) Branch times daily. Use in each nostril as directed fluticasone 2020-02 Yes [id number] 2{puff} Inhale 2 [facility] propionate 2-02 Puffs 2 ity of (FLOVENT 00:00: (two) [place] [facility]FA) 44 00 times Medical mcg/actuati daily. Branch on inhaler Rinse mouth after each use. azelastine 2020-02 Yes [id number] 1{spray Use 1 [facility] 137 mcg 2-02 } [place] in ity of (0.1 %) 00:00: each [place] nasal spray 00 nostril 2 Med ical (two) Branch times daily. Use in each nostril as directed fluticasone 2020-02 Yes [id number] 2{puff} Inhale 2 [facility] propionate 2-02 Puffs 2 ity of (FLOVENT 00:00: (two) [place] [facility]FA) 44 00 times Medical mcg/actuati daily. Branch on inhaler Rinse mouth after each use. azelastine 2020-02 Yes [id number] 1{spray Use 1 [facility] 137 mcg 2-02 } [place] in ity of (0.1 %) 00:00: each [place] nasal spray 00 nostril 2 Med ical (two) Branch times daily. Use in each nostril as directed fluticasone 2020-02 Yes [id number] 2{puff} Inhale 2 [facility] propionate 2-02 Puffs 2 ity of (FLOVENT 00:00: (two) [place] [facility]FA) 44 00 times Medical mcg/actuati daily. Branch on inhaler Rinse mouth after each use. azelastine 2020-02 Yes [id number] 1{spray Use 1 [facility] 137 mcg 2-02 } [place] in ity of (0.1 %) 00:00: each [place] nasal spray 00 nostril 2 Med ical (two) Branch times daily. Use in each nostril as directed fluticasone 2020-02 Yes [id number] 2{puff} Inhale 2 [facility] propionate 2-02 Puffs 2 ity of (FLOVENT 00:00: (two) [place] [facility]FA) 44 00 times Medical mcg/actuati daily. Branch on inhaler Rinse mouth after each use. azelastine 2020-02 Yes [id number] 1{spray Use 1 [facility] 137 mcg 2-02 } [place] in ity of (0.1 %) 00:00: each [place] nasal spray 00 nostril 2 Med ical (two) Branch times daily. Use in each nostril as directed fluticasone 2020-02 Yes [id number] 2{puff} Inhale 2 [facility] propionate 2-02 Puffs 2 ity of (FLOVENT 00:00: (two) [place] HFA) 44 00 times Medical mcg/actuati daily. Branch on inhaler Rinse mouth after each use. azelastine 2020-02 Yes [id number] 1{spray Use 1 [facility] 137 mcg 2-02 } [place] in ity of (0.1 %) 00:00: each [place] nasal spray 00 nostril 2 Med ical (two) Branch times daily. Use in each nostril as directed fluticasone 2020-02 Yes [id number] 2{puff} Inhale 2 [facility] propionate 2-02 Puffs 2 ity of (FLOVENT 00:00: (two) [place] HFA) 44 00 times Medical mcg/actuati daily. Branch on inhaler Rinse mouth after each use. azelastine 2020-02 Yes [id number] 1{spray Use 1 [facility] 137 mcg 2-02 } [place] in ity of (0.1 %) 00:00: each [place] nasal spray 00 nostril 2 Med ical (two) Branch times daily. Use in each nostril as directed fluticasone 2020-02 Yes [id number] 2{puff} Inhale 2 [facility] propionate 2-02 Puffs 2 ity of (FLOVENT 00:00: (two) [place] HFA) 44 00 times Medical mcg/actuati daily. Branch on inhaler Rinse mouth after each use. azelastine 2020-02 Yes [id number] 1{spray Use 1 [facility] 137 mcg 2-02 } [place] in ity of (0.1 %) 00:00: each [place] nasal spray 00 nostril 2 Med ical (two) Branch times daily. Use in each nostril as directed fluticasone 2020-02 Yes [id number] 2{puff} Inhale 2 [facility] propionate 2-02 Puffs 2 ity of (FLOVENT 00:00: (two) [place] HFA) 44 00 times Medical mcg/actuati daily. Branch on inhaler Rinse mouth after each use. azelastine 2020-02 Yes [id number] 1{spray Use 1 [facility] 137 mcg 2-02 } [place] in ity of (0.1 %) 00:00: each [place] nasal spray 00 nostril 2 Med ical (two) Branch times daily. Use in each nostril as directed fluticasone 2020-02 Yes [id number] 2{puff} Inhale 2 [facility] propionate 2-02 Puffs 2 ity of (FLOVENT 00:00: (two) [place] HFA) 44 00 times Medical mcg/actuati daily. Branch on inhaler Rinse mouth after each use. azelastine 2020-02 Yes [id number] 1{spray Use 1 [facility] 137 mcg 2-02 } [place] in ity of (0.1 %) 00:00: each [place] nasal spray 00 nostril 2 Med ical (two) Branch times daily. Use in each nostril as directed fluticasone 2020-02 Yes [id number] 2{puff} Inhale 2 [facility] propionate 2-02 Puffs 2 ity of (FLOVENT 00:00: (two) [place] HFA) 44 00 times Medical mcg/actuati daily. Branch on inhaler Rinse mouth after each use. azelastine 2020-02 Yes [id number] 1{spray Use 1 [facility] 137 mcg 2-02 } [place] in [facility]y of (0.1 %) 00:00: each [place] nasal spray 00 nostril 2 Med ical (two) Branch times daily. Use in each nostril as directed fluticasone 2020-02 Yes [id number] 2{puff} Inhale 2 [facility] propionate 2-02 Puffs 2 ity of (FLOVENT 00:00: (two) [place] HFA) 44 00 times Medical mcg/actuati daily. Branch on inhaler Rinse mouth after each use. azelastine 2020-02 Yes [id number] 1{spray Use 1 [facility] 137 mcg 2-02 } [place] in ity of (0.1 %) 00:00: each [place] nasal spray 00 nostril 2 Med ical (two) Branch times daily. Use in each nostril as directed fluticasone 2020-02 Yes [id number] 2{puff} Inhale 2 [facility] propionate 2-02 Puffs 2 ity of (FLOVENT 00:00: (two) [place] HFA) 44 00 times Medical mcg/actuati daily. Branch on inhaler Rinse mouth after each use. azelastine 2020-02 Yes [id number] 1{spray Use 1 [facility] 137 mcg 2-02 } [place] in [facility]y of (0.1 %) 00:00: each [place] nasal spray 00 nostril 2 Med ical (two) Branch times daily. Use in each nostril as directed fluticasone 2020-02 Yes [id number] 2{puff} Inhale 2 [facility] propionate 2-02 Puffs 2 ity of (FLOVENT 00:00: (two) [place] HFA) 44 00 times Medical mcg/actuati daily. Branch on inhaler Rinse mouth after each use. azelastine 2020-02 Yes [id number] 1{spray Use 1 [facility] 137 mcg 2-02 } [place] in [facility]y of (0.1 %) 00:00: each [place] nasal spray 00 nostril 2 Med ical (two) Branch times daily. Use in each nostril as directed fluticasone 2020-02 Yes [id number] 2{puff} Inhale 2 [facility] propionate 2-02 Puffs 2 ity of (FLOVENT 00:00: (two) [place] HFA) 44 00 times Medical mcg/actuati daily. Branch on inhaler Rinse mouth after each use. azelastine 2020-02 Yes [id number] 1{spray Use 1 [facility] 137 mcg 2-02 } [place] in [facility]y of (0.1 %) 00:00: each [place] nasal spray 00 nostril 2 Med ical (two) Branch times daily. Use in each nostril as directed fluticasone 2020-02 Yes [id number] 2{puff} Inhale 2 [facility] propionate 2-02 Puffs 2 ity of (FLOVENT 00:00: (two) [place] HFA) 44 00 times Medical mcg/actuati daily. Branch on inhaler Rinse mouth after each use. azelastine 2020-02 Yes [id number] 1{spray Use 1 [facility] 137 mcg 2-02 } [place] in [facility]y of (0.1 %) 00:00: each [place] nasal spray 00 nostril 2 Med ical (two) Branch times daily. Use in each nostril as directed fluticasone 2020-02 Yes [id number] 2{puff} Inhale 2 [facility] propionate 2-02 Puffs 2 ity of (FLOVENT 00:00: (two) [place] HFA) 44 00 times Medical mcg/actuati daily. Branch on inhaler Rinse mouth after each use. azelastine 2020-02 Yes [id number] 1{spray Use 1 [facility] 137 mcg 2-02 } [place] in [facility]y of (0.1 %) 00:00: each [place] nasal spray 00 nostril 2 Med ical (two) Branch times daily. Use in each nostril as directed fluticasone 2020-02 Yes [id number] 2{puff} Inhale 2 [facility] propionate 2-02 Puffs 2 ity of (FLOVENT 00:00: (two) [place] HFA) 44 00 times Medical mcg/actuati daily. Branch on inhaler Rinse mouth after each use. azelastine 2020-02 Yes [id number] 1{spray Use 1 [facility] 137 mcg 2-02 } [place] in [facility]y of (0.1 %) 00:00: each [place] nasal spray 00 nostril 2 Med ical (two) Branch times daily. Use in each nostril as directed fluticasone 2020-02 Yes [id number] 2{puff} Inhale 2 [facility] propionate 2-02 Puffs 2 ity of (FLOVENT 00:00: (two) [place] HFA) 44 00 times Medical mcg/actuati daily. Branch on inhaler Rinse mouth after each use. azelastine 2020-02 Yes [id number] 1{spray Use 1 [facility] 137 mcg 2-02 } [place] in [facility]y of (0.1 %) 00:00: each [place] nasal spray 00 nostril 2 Med ical (two) Branch times daily. Use in each nostril as directed fluticasone 2020-02 Yes [id number] 2{puff} Inhale 2 [facility] propionate 2-02 Puffs 2 ity of (FLOVENT 00:00: (two) [place] HFA) 44 00 times Medical mcg/actuati daily. Branch on inhaler Rinse mouth after each use. azelastine 2020-02 Yes [id number] 1{spray Use 1 [facility] 137 mcg 2-02 } [place] in [facility]y of (0.1 %) 00:00: each [place] nasal spray 00 nostril 2 Med ical (two) Branch times daily. Use in each nostril as directed fluticasone 2020-02 Yes [id number] 2{puff} Inhale 2 [facility] propionate 2-02 Puffs 2 ity of (FLOVENT 00:00: (two) [place] HFA) 44 00 times Medical mcg/actuati daily. Branch on inhaler Rinse mouth after each use. azelastine 2020-02 Yes [id number] 1{spray Use 1 [facility] 137 mcg 2-02 } [place] in [facility]y of (0.1 %) 00:00: each [place] nasal spray 00 nostril 2 Med ical (two) Branch times daily. Use in each nostril as directed fluticasone 2020-02 Yes [id number] 2{puff} Inhale 2 [facility] propionate 2-02 Puffs 2 ity of (FLOVENT 00:00: (two) [place] HFA) 44 00 times Medical mcg/actuati daily. Branch on inhaler Rinse mouth after each use. azelastine 2020-02 Yes [id number] 1{spray Use 1 [facility] 137 mcg 2-02 } [place] in ity of (0.1 %) 00:00: each [place] nasal spray 00 nostril 2 Med ical (two) Branch times daily. Use in each nostril as directed fluticasone 2020-02 Yes [id number] 2{puff} Inhale 2 [facility] propionate 2-02 Puffs 2 ity of (FLOVENT 00:00: (two) [place] HFA) 44 00 times Medical mcg/actuati daily. Branch on inhaler Rinse mouth after each use. azelastine 2020-02 Yes [id number] 1{spray Use 1 [facility] 137 mcg 2-02 } [place] in ity of (0.1 %) 00:00: each [place] nasal spray 00 nostril 2 Med ical (two) Branch times daily. Use in each nostril as directed fluticasone 2020-02 Yes [id number] 2{puff} Inhale 2 [facility] propionate 2-02 Puffs 2 ity of (FLOVENT 00:00: (two) [place] HFA) 44 00 times Medical mcg/actuati daily. Branch on inhaler Rinse mouth after each use. azelastine 2020-02 Yes [id number] 1{spray Use 1 [facility] 137 mcg 2-02 } [place] in ity of (0.1 %) 00:00: each [place] nasal spray 00 nostril 2 Med ical (two) Branch times daily. Use in each nostril as directed fluticasone 2020-02 Yes [id number] 2{puff} Inhale 2 [facility] propionate 2-02 Puffs 2 ity of (FLOVENT 00:00: (two) [place] HFA) 44 00 times Medical mcg/actuati daily. Branch on inhaler Rinse mouth after each use. azelastine 2020-02 Yes [id number] 1{spray Use 1 [facility] 137 mcg 2-02 } [place] in ity of (0.1 %) 00:00: each [place] nasal spray 00 nostril 2 Med ical (two) Branch times daily. Use in each nostril as directed fluticasone 2020-02 Yes [id number] 2{puff} Inhale 2 [facility] propionate 2-02 Puffs 2 ity of (FLOVENT 00:00: (two) [place] HFA) 44 00 times Medical mcg/actuati daily. Branch on inhaler Rinse mouth after each use. azelastine 2020-02 Yes [id number] 1{spray Use 1 [facility] 137 mcg 2-02 } [place] in ity of (0.1 %) 00:00: each [place] nasal spray 00 nostril 2 Med ical (two) Branch times daily. Use in each nostril as directed fluticasone 2020-02 Yes [id number] 2{puff} Inhale 2 [facility] propionate 2-02 Puffs 2 ity of (FLOVENT 00:00: (two) [place] HFA) 44 00 times Medical mcg/actuati daily. Branch on inhaler Rinse mouth after each use. azelastine 2020-02 Yes [id number] 1{spray Use 1 [facility] 137 mcg 2-02 } [place] in ity of (0.1 %) 00:00: each [place] nasal spray 00 nostril 2 Med ical (two) Branch times daily. Use in each nostril as directed fluticasone 2020-02 Yes [id number] 2{puff} Inhale 2 [facility] propionate 2-02 Puffs 2 ity of (FLOVENT 00:00: (two) [place] HFA) 44 00 times Medical mcg/actuati daily. Branch on inhaler Rinse mouth after each use. azelastine 2020-02 Yes [id number] 1{spray Use 1 [facility] 137 mcg 2-02 } [place] in ity of (0.1 %) 00:00: each [place] nasal spray 00 nostril 2 Med ical (two) Branch times daily. Use in each nostril as directed fluticasone 2020-02 Yes [id number] 2{puff} Inhale 2 [facility] propionate 2-02 Puffs 2 ity of (FLOVENT 00:00: (two) [place] HFA) 44 00 times Medical mcg/actuati daily. Branch on inhaler Rinse mouth after each use. mirtazapine 2020-02- No [id number] 7.5mg Take 1 [facility] 7.5 mg 2-02 07-15 tablet by ity of tablet 00:00: 00:00 mouth at [place] 00 :00 bedtime. Medical Branch albuterol Yes [id number] 2{puff} Inhale 2 [facility] (PROAIR 9-03 Puffs ity of HFA) 90 00:00: every 6 [place] mcg/actuati 00 (six) Medical on inhaler hours as Branc h needed for Wheezing or Shortness of Breath. albuterol Yes [id number] 2{puff} Inhale 2 [facility] (PROAIR 9-03 Puffs ity of HFA) 90 00:00: every 6 [place] mcg/actuati 00 (six) Medical on inhaler hours as Branc h needed for Wheezing or Shortness of Breath. albuterol Yes [id number] 2{puff} Inhale 2 [facility] (PROAIR 9-03 Puffs ity of HFA) 90 00:00: every 6 [place] mcg/actuati 00 (six) Medical on inhaler hours as Branc h needed for Wheezing or Shortness of Breath. albuterol Yes [id number] 2{puff} Inhale 2 [facility] (PROAIR 9-03 Puffs ity of HFA) 90 00:00: every 6 [place] mcg/actuati 00 (six) Medical on inhaler hours as Branc h needed for Wheezing or Shortness of Breath. albuterol 0 Yes [id number] 2{puff} Inhale 2 [facility] (PROAIR 9-03 Puffs ity of HFA) 90 00:00: every 6 [place] mcg/actuati 00 (six) Medical on inhaler hours as Branc h needed for Wheezing or Shortness of Breath. albuterol 0 Yes [id number] 2{puff} Inhale 2 [facility] (PROAIR 9-03 Puffs ity of HFA) 90 00:00: every 6 [place] mcg/actuati 00 (six) Medical on inhaler hours as Branc h needed for Wheezing or Shortness of Breath. albuterol 0 Yes [id number] 2{puff} Inhale 2 [facility] (PROAIR 9-03 Puffs ity of HFA) 90 00:00: every 6 [place] mcg/actuati 00 (six) Medical on inhaler hours as Branc h needed for Wheezing or Shortness of Breath. albuterol 0 Yes [id number] 2{puff} Inhale 2 [facility] (PROAIR 9-03 Puffs ity of HFA) 90 00:00: every 6 [place] mcg/actuati 00 (six) Medical on inhaler hours as Branc h needed for Wheezing or Shortness of Breath. albuterol 0 Yes [id number] 2{puff} Inhale 2 [facility] (PROAIR 9-03 Puffs ity of HFA) 90 00:00: every 6 [place] mcg/actuati 00 (six) Medical on inhaler hours as Branc h needed for Wheezing or Shortness of Breath. albuterol 0 Yes [id number] 2{puff} Inhale 2 [facility] (PROAIR 9-03 Puffs ity of HFA) 90 00:00: every 6 [place] mcg/actuati 00 (six) Medical on inhaler hours as Branc h needed for Wheezing or Shortness of Breath. albuterol 0 Yes [id number] 2{puff} Inhale 2 [facility] (PROAIR 9-03 Puffs ity of HFA) 90 00:00: every 6 [place] mcg/actuati 00 (six) Medical on inhaler hours as Branc h needed for Wheezing or Shortness of Breath. albuterol Yes [id number] 2{puff} Inhale 2 [facility] (PROAIR 9-03 Puffs ity of HFA) 90 00:00: every 6 [place] mcg/actuati 00 (six) Medical on inhaler hours as Branc h needed for Wheezing or Shortness of Breath. albuterol Yes [id number] 2{puff} Inhale 2 [facility] (PROAIR 9-03 Puffs ity of HFA) 90 00:00: every 6 [place] mcg/actuati 00 (six) Medical on inhaler hours as Branc h needed for Wheezing or Shortness of Breath. albuterol Yes [id number] 2{puff} Inhale 2 [facility] (PROAIR 9-03 Puffs ity of HFA) 90 00:00: every 6 [place] mcg/actuati 00 (six) Medical on inhaler hours as Branc h needed for Wheezing or Shortness of Breath. albuterol Yes [id number] 2{puff} Inhale 2 [facility] (PROAIR 9-03 Puffs ity of HFA) 90 00:00: every 6 [place] mcg/actuati 00 (six) Medical on inhaler hours as Branc h needed for Wheezing or Shortness of Breath. albuterol Yes [id number] 2{puff} Inhale 2 [facility] (PROAIR 9-03 Puffs ity of HFA) 90 00:00: every 6 [place] mcg/actuati 00 (six) Medical on inhaler hours as Branc h needed for Wheezing or Shortness of Breath. albuterol Yes [id number] 2{puff} Inhale 2 [facility] (PROAIR 9-03 Puffs ity of HFA) 90 00:00: every 6 [place] mcg/actuati 00 (six) Medical on inhaler hours as Branc h needed for Wheezing or Shortness of Breath. albuterol Yes [id number] 2{puff} Inhale 2 [facility] (PROAIR 9-03 Puffs ity of HFA) 90 00:00: every 6 [place] mcg/actuati 00 (six) Medical on inhaler hours as Branc h needed for Wheezing or Shortness of Breath. albuterol Yes [id number] 2{puff} Inhale 2 [facility] (PROAIR 9-03 Puffs ity of HFA) 90 00:00: every 6 [place] mcg/actuati 00 (six) Medical on inhaler hours as Branc h needed for Wheezing or Shortness of Breath. albuterol Yes [id number] 2{puff} Inhale 2 [facility] (PROAIR 9-03 Puffs ity of HFA) 90 00:00: every 6 [place] mcg/actuati 00 (six) Medical on inhaler hours as Branc h needed for Wheezing or Shortness of Breath. albuterol Yes [id number] 2{puff} Inhale 2 [facility] (PROAIR 9-03 Puffs ity of HFA) 90 00:00: every 6 [place] mcg/actuati 00 (six) Medical on inhaler hours as Branc h needed for Wheezing or Shortness of Breath. albuterol Yes [id number] 2{puff} Inhale 2 [facility] (PROAIR 9-03 Puffs ity of HFA) 90 00:00: every 6 [place] mcg/actuati 00 (six) Medical on inhaler hours as Branc h needed for Wheezing or Shortness of Breath. albuterol Yes [id number] 2{puff} Inhale 2 [facility] (PROAIR 9-03 Puffs ity of HFA) 90 00:00: every 6 [place] mcg/actuati 00 (six) Medical on inhaler hours as Branc h needed for Wheezing or Shortness of Breath. albuterol Yes [id number] 2{puff} Inhale 2 [facility] (PROAIR 9-03 Puffs ity of HFA) 90 00:00: every 6 [place] mcg/actuati 00 (six) Medical on inhaler hours as Branc h needed for Wheezing or Shortness of Breath. albuterol Yes [id number] 2{puff} Inhale 2 [facility] (PROAIR 9-03 Puffs ity of HFA) 90 00:00: every 6 [place] mcg/actuati 00 (six) Medical on inhaler hours as Branc h needed for Wheezing or Shortness of Breath. albuterol Yes [id number] 2{puff} Inhale 2 [facility] (PROAIR 9-03 Puffs ity of HFA) 90 00:00: every 6 [place] mcg/actuati 00 (six) Medical on inhaler hours as Branc h needed for Wheezing or Shortness of Breath. albuterol Yes [id number] 2{puff} Inhale 2 [facility] (PROAIR 9-03 Puffs ity of HFA) 90 00:00: every 6 [place] mcg/actuati 00 (six) Medical on inhaler hours as Branc h needed for Wheezing or Shortness of Breath. albuterol Yes [id number] 2{puff} Inhale 2 [facility] (PROAIR 9-03 Puffs ity of HFA) 90 00:00: every 6 [place] mcg/actuati 00 (six) Medical on inhaler hours as Branc h needed for Wheezing or Shortness of Breath. albuterol Yes [id number] 2{puff} Inhale 2 [facility] (PROAIR 9-03 Puffs ity of HFA) 90 00:00: every 6 [place] mcg/actuati 00 (six) Medical on inhaler hours as Branc h needed for Wheezing or Shortness of Breath. albuterol Yes [id number] 2{puff} Inhale 2 [facility] (PROAIR 9-03 Puffs ity of HFA) 90 00:00: every 6 [place] mcg/actuati 00 (six) Medical on inhaler hours as Branc h needed for Wheezing or Shortness of Breath. albuterol Yes [id number] 2{puff} Inhale 2 [facility] (PROAIR 9-03 Puffs ity of HFA) 90 00:00: every 6 [place] mcg/actuati 00 (six) Medical on inhaler hours as Branc h needed for Wheezing or Shortness of Breath. albuterol Yes [id number] 2{puff} Inhale 2 [facility] (PROAIR 9-03 Puffs ity of HFA) 90 00:00: every 6 [place] mcg/actuati 00 (six) Medical on inhaler hours as Branc h needed for Wheezing or Shortness of Breath. albuterol Yes [id number] 2{puff} Inhale 2 [facility] (PROAIR 9-03 Puffs ity of HFA) 90 00:00: every 6 [place] mcg/actuati 00 (six) Medical on inhaler hours as Branc h needed for Wheezing or Shortness of Breath. albuterol 0 Yes [id number] 2{puff} Inhale 2 [facility] (PROAIR 9-03 Puffs ity of HFA) 90 00:00: every 6 [place] mcg/actuati 00 (six) Medical on inhaler hours as Branc h needed for Wheezing or Shortness of Breath. albuterol 0 Yes [id number] 2{puff} Inhale 2 [facility] (PROAIR 9-03 Puffs ity of HFA) 90 00:00: every 6 [place] mcg/actuati 00 (six) Medical on inhaler hours as Branc h needed for Wheezing or Shortness of Breath. albuterol Yes [id number] 2{puff} Inhale 2 [facility] (PROAIR 9-03 Puffs ity of HFA) 90 00:00: every 6 [place] mcg/actuati 00 (six) Medical on inhaler hours as Branc h needed for Wheezing or Shortness of Breath. albuterol Yes [id number] 2{puff} Inhale 2 [facility] (PROAIR 9-03 Puffs ity of HFA) 90 00:00: every 6 [place] mcg/actuati 00 (six) Medical on inhaler hours as Branc h needed for Wheezing or Shortness of Breath. albuterol 0 Yes [id number] 2{puff} Inhale 2 [facility] (PROAIR 9-03 Puffs ity of HFA) 90 00:00: every 6 [place] mcg/actuati 00 (six) Medical on inhaler hours as Branc h needed for Wheezing or Shortness of Breath. albuterol 0 Yes [id number] 2{puff} Inhale 2 [facility] (PROAIR 9-03 Puffs ity of HFA) 90 00:00: every 6 [place] mcg/actuati 00 (six) Medical on inhaler hours as Branc h needed for Wheezing or Shortness of Breath. albuterol 0 Yes [id number] 2{puff} Inhale 2 [facility] (PROAIR 9-03 Puffs ity of HFA) 90 00:00: every 6 [place] mcg/actuati 00 (six) Medical on inhaler hours as Branc h needed for Wheezing or Shortness of Breath. albuterol Yes [id number] 2{puff} Inhale 2 [facility] (PROAIR 9-03 Puffs ity of HFA) 90 00:00: every 6 [place] mcg/actuati 00 (six) Medical on inhaler hours as Branc h needed for Wheezing or Shortness of Breath. albuterol Yes [id number] 2{puff} Inhale 2 [facility] (PROAIR 9-03 Puffs ity of HFA) 90 00:00: every 6 [place] mcg/actuati 00 (six) Medical on inhaler hours as Branc h needed for Wheezing or Shortness of Breath. albuterol Yes [id number] 2{puff} Inhale 2 [facility] (PROAIR 9-03 Puffs ity of HFA) 90 00:00: every 6 [place] mcg/actuati 00 (six) Medical on inhaler hours as Branc h needed for Wheezing or Shortness of Breath. albuterol Yes [id number] 2{puff} Inhale 2 [facility] (PROAIR 9-03 Puffs ity of HFA) 90 00:00: every 6 [place] mcg/actuati 00 (six) Medical on inhaler hours as Branc h needed for Wheezing or Shortness of Breath. albuterol Yes [id number] 2{puff} Inhale 2 [facility] (PROAIR 9-03 Puffs ity of HFA) 90 00:00: every 6 [place] mcg/actuati 00 (six) Medical on inhaler hours as Branc h needed for Wheezing or Shortness of Breath. albuterol Yes [id number] 2{puff} Inhale 2 [facility] (PROAIR 9-03 Puffs ity of HFA) 90 00:00: every 6 [place] mcg/actuati 00 (six) Medical on inhaler hours as Branc h needed for Wheezing or Shortness of Breath. albuterol 0 Yes [id number] 2{puff} Inhale 2 [facility] (PROAIR 9-03 Puffs ity of HFA) 90 00:00: every 6 [place] mcg/actuati 00 (six) Medical on inhaler hours as Branc h needed for Wheezing or Shortness of Breath. albuterol Yes [id number] 2{puff} Inhale 2 [facility] (PROAIR 9-03 Puffs ity of HFA) 90 00:00: every 6 [place] mcg/actuati 00 (six) Medical on inhaler hours as Branc h needed for Wheezing or Shortness of Breath. albuterol Yes [id number] 2{puff} Inhale 2 [facility] (PROAIR 9-03 Puffs ity of HFA) 90 00:00: every 6 [place] mcg/actuati 00 (six) Medical on inhaler hours as Branc h needed for Wheezing or Shortness of Breath. albuterol Yes [id number] 2{puff} Inhale 2 [facility] (PROAIR 9-03 Puffs ity of HFA) 90 00:00: every 6 [place] mcg/actuati 00 (six) Medical on inhaler hours as Branc h needed for Wheezing or Shortness of Breath. albuterol Yes [id number] 2{puff} Inhale 2 [facility] (PROAIR 9-03 Puffs ity of HFA) 90 00:00: every 6 [place] mcg/actuati 00 (six) Medical on inhaler hours as Branc h needed for Wheezing or Shortness of Breath. albuterol Yes [id number] 2{puff} Inhale 2 [facility] (PROAIR 9-03 Puffs ity of HFA) 90 00:00: every 6 [place] mcg/actuati 00 (six) Medical on inhaler hours as Branc h needed for Wheezing or Shortness of Breath. albuterol Yes [id number] 2{puff} Inhale 2 [facility] (PROAIR 9-03 Puffs ity of HFA) 90 00:00: every 6 [place] mcg/actuati 00 (six) Medical on inhaler hours as Branc h needed for Wheezing or Shortness of Breath. albuterol Yes [id number] 2{puff} Inhale 2 [facility] (PROAIR 9-03 Puffs ity of HFA) 90 00:00: every 6 [place] mcg/actuati 00 (six) Medical on inhaler hours as Branc h needed for Wheezing or Shortness of Breath. albuterol Yes [id number] 2{puff} Inhale 2 [facility] (PROAIR 9-03 Puffs ity of HFA) 90 00:00: every 6 [place] mcg/actuati 00 (six) Medical on inhaler hours as Branc h needed for Wheezing or Shortness of Breath. albuterol Yes [id number] 2{puff} Inhale 2 [facility] (PROAIR 9-03 Puffs ity of HFA) 90 00:00: every 6 [place] mcg/actuati 00 (six) Medical on inhaler hours as Branc h needed for Wheezing or Shortness of Breath. albuterol Yes [id number] 2{puff} Inhale 2 [facility] (PROAIR 9-03 Puffs ity of HFA) 90 00:00: every 6 [place] mcg/actuati 00 (six) Medical on inhaler hours as Branc h needed for Wheezing or Shortness of Breath. albuterol Yes [id number] 2{puff} Inhale 2 [facility] (PROAIR 9-03 Puffs ity of HFA) 90 00:00: every 6 [place] mcg/actuati 00 (six) Medical on inhaler hours as Branc h needed for Wheezing or Shortness of Breath. albuterol Yes [id number] 2{puff} Inhale 2 [facility] (PROAIR 9-03 Puffs ity of HFA) 90 00:00: every 6 [place] mcg/actuati 00 (six) Medical on inhaler hours as Branc h needed for Wheezing or Shortness of Breath. albuterol Yes [id number] 2{puff} Inhale 2 [facility] (PROAIR 9-03 Puffs ity of HFA) 90 00:00: every 6 [place] mcg/actuati 00 (six) Medical on inhaler hours as Branc h needed for Wheezing or Shortness of Breath. albuterol Yes [id number] 2{puff} Inhale 2 [facility] (PROAIR 9-03 Puffs ity of HFA) 90 00:00: every 6 [place] mcg/actuati 00 (six) Medical on inhaler hours as Branc h needed for Wheezing or Shortness of Breath. albuterol Yes [id number] 2{puff} Inhale 2 [facility] (PROAIR 9-03 Puffs ity of HFA) 90 00:00: every 6 [place] mcg/actuati 00 (six) Medical on inhaler hours as Branc h needed for Wheezing or Shortness of Breath. albuterol 0 Yes [id number] 2{puff} Inhale 2 [facility] (PROAIR 9-03 Puffs ity of HFA) 90 00:00: every 6 [place] mcg/actuati 00 (six) Medical on inhaler hours as Branc h needed for Wheezing or Shortness of Breath. albuterol 0 Yes [id number] 2{puff} Inhale 2 [facility] (PROAIR 9-03 Puffs ity of HFA) 90 00:00: every 6 [place] mcg/actuati 00 (six) Medical on inhaler hours as Branc h needed for Wheezing or Shortness of Breath. albuterol Yes [id number] 2{puff} Inhale 2 [facility] (PROAIR 9-03 Puffs ity of HFA) 90 00:00: every 6 [place] mcg/actuati 00 (six) Medical on inhaler hours as Branc h needed for Wheezing or Shortness of Breath. albuterol Yes [id number] 2{puff} Inhale 2 [facility] (PROAIR 9-03 Puffs ity of HFA) 90 00:00: every 6 [place] mcg/actuati 00 (six) Medical on inhaler hours as Branc h needed for Wheezing or Shortness of Breath. albuterol 0 Yes [id number] 2{puff} Inhale 2 [facility] (PROAIR 9-03 Puffs ity of HFA) 90 00:00: every 6 [place] mcg/actuati 00 (six) Medical on inhaler hours as Branc h needed for Wheezing or Shortness of Breath. albuterol 0 Yes [id number] 2{puff} Inhale 2 [facility] (PROAIR 9-03 Puffs ity of HFA) 90 00:00: every 6 [place] mcg/actuati 00 (six) Medical on inhaler hours as Branc h needed for Wheezing or Shortness of Breath. albuterol 0 Yes [id number] 2{puff} Inhale 2 [facility] (PROAIR 9-03 Puffs ity of HFA) 90 00:00: every 6 [place] mcg/actuati 00 (six) Medical on inhaler hours as Branc h needed for Wheezing or Shortness of Breath. albuterol Yes [id number] 2{puff} Inhale 2 [facility] (PROAIR 9-03 Puffs ity of HFA) 90 00:00: every 6 [place] mcg/actuati 00 (six) Medical on inhaler hours as Branc h needed for Wheezing or Shortness of Breath. albuterol Yes [id number] 2{puff} Inhale 2 [facility] (PROAIR 9-03 Puffs ity of HFA) 90 00:00: every 6 [place] mcg/actuati 00 (six) Medical on inhaler hours as Branc h needed for Wheezing or Shortness of Breath. albuterol Yes [id number] 2{puff} Inhale 2 [facility] (PROAIR 9-03 Puffs ity of HFA) 90 00:00: every 6 [place] mcg/actuati 00 (six) Medical on inhaler hours as Branc h needed for Wheezing or Shortness of Breath. albuterol Yes [id number] 2{puff} Inhale 2 [facility] (PROAIR 9-03 Puffs ity of HFA) 90 00:00: every 6 [place] mcg/actuati 00 (six) Medical on inhaler hours as Branc h needed for Wheezing or Shortness of Breath. albuterol Yes [id number] 2{puff} Inhale 2 [facility] (PROAIR 9-03 Puffs ity of HFA) 90 00:00: every 6 [place] mcg/actuati 00 (six) Medical on inhaler hours as Branc h needed for Wheezing or Shortness of Breath. albuterol Yes [id number] 2{puff} Inhale 2 [facility] (PROAIR 9-03 Puffs ity of HFA) 90 00:00: every 6 [place] mcg/actuati 00 (six) Medical on inhaler hours as Branc h needed for Wheezing or Shortness of Breath. albuterol Yes [id number] 2{puff} Inhale 2 [facility] (PROAIR 9-03 Puffs ity of HFA) 90 00:00: every 6 [place] mcg/actuati 00 (six) Medical on inhaler hours as Branc h needed for Wheezing or Shortness of Breath. albuterol Yes [id number] 2{puff} Inhale 2 [facility] (PROAIR 9-03 Puffs ity of HFA) 90 00:00: every 6 [place] mcg/actuati 00 (six) Medical on inhaler hours as Branc h needed for Wheezing or Shortness of Breath. albuterol Yes [id number] 2{puff} Inhale 2 [facility] (PROAIR 9-03 Puffs ity of HFA) 90 00:00: every 6 [place] mcg/actuati 00 (six) Medical on inhaler hours as Branc h needed for Wheezing or Shortness of Breath. albuterol Yes [id number] 2{puff} Inhale 2 [facility] (PROAIR 9-03 Puffs ity of HFA) 90 00:00: every 6 [place] mcg/actuati 00 (six) Medical on inhaler hours as Branc h needed for Wheezing or Shortness of Breath. albuterol Yes [id number] 2{puff} Inhale 2 [facility] (PROAIR 9-03 Puffs ity of HFA) 90 00:00: every 6 [place] mcg/actuati 00 (six) Medical on inhaler hours as Branc h needed for Wheezing or Shortness of Breath. albuterol Yes [id number] 2{puff} Inhale 2 [facility] (PROAIR 9-03 Puffs ity of HFA) 90 00:00: every 6 [place] mcg/actuati 00 (six) Medical on inhaler hours as Branc h needed for Wheezing or Shortness of Breath. albuterol Yes [id number] 2{puff} Inhale 2 [facility] (PROAIR 9-03 Puffs ity of HFA) 90 00:00: every 6 [place] mcg/actuati 00 (six) Medical on inhaler hours as Branc h needed for Wheezing or Shortness of Breath. albuterol Yes [id number] 2{puff} Inhale 2 [facility] (PROAIR 9-03 Puffs ity of HFA) 90 00:00: every 6 [place] mcg/actuati 00 (six) Medical on inhaler hours as Branc h needed for Wheezing or Shortness of Breath. albuterol Yes [id number] 2{puff} Inhale 2 [facility] (PROAIR 9-03 Puffs ity of HFA) 90 00:00: every 6 [place] mcg/actuati 00 (six) Medical on inhaler hours as Branc h needed for Wheezing or Shortness of Breath. albuterol Yes [id number] 2{puff} Inhale 2 [facility] (PROAIR 9-03 Puffs ity of HFA) 90 00:00: every 6 [place] mcg/actuati 00 (six) Medical on inhaler hours as Branc h needed for Wheezing or Shortness of Breath. albuterol Yes [id number] 2{puff} Inhale 2 [facility] (PROAIR 9-03 Puffs ity of HFA) 90 00:00: every 6 [place] mcg/actuati 00 (six) Medical on inhaler hours as Branc h needed for Wheezing or Shortness of Breath. albuterol Yes [id number] 2{puff} Inhale 2 [facility] (PROAIR 9-03 Puffs ity of HFA) 90 00:00: every 6 [place] mcg/actuati 00 (six) Medical on inhaler hours as Branc h needed for Wheezing or Shortness of Breath. albuterol Yes [id number] 2{puff} Inhale 2 [facility] (PROAIR 9-03 Puffs ity of HFA) 90 00:00: every 6 [place] mcg/actuati 00 (six) Medical on inhaler hours as Branc h needed for Wheezing or Shortness of Breath. albuterol Yes [id number] 2{puff} Inhale 2 [facility] (PROAIR 9-03 Puffs ity of HFA) 90 00:00: every 6 [place] mcg/actuati 00 (six) Medical on inhaler hours as Branc h needed for Wheezing or Shortness of Breath. albuterol Yes [id number] 2{puff} Inhale 2 [facility] (PROAIR 9-03 Puffs ity of HFA) 90 00:00: every 6 [place] mcg/actuati 00 (six) Medical on inhaler hours as Branc h needed for Wheezing or Shortness of Breath. albuterol Yes [id number] 2{puff} Inhale 2 [facility] (PROAIR 9-03 Puffs ity of HFA) 90 00:00: every 6 [place] mcg/actuati 00 (six) Medical on inhaler hours as Branc h needed for Wheezing or Shortness of Breath. albuterol Yes [id number] 2{puff} Inhale 2 [facility] (PROAIR 9-03 Puffs ity of HFA) 90 00:00: every 6 [place] mcg/actuati 00 (six) Medical on inhaler hours as Branc h needed for Wheezing or Shortness of Breath. albuterol Yes [id number] 2{puff} Inhale 2 [facility] (PROAIR 9-03 Puffs ity of HFA) 90 00:00: every 6 [place] mcg/actuati 00 (six) Medical on inhaler hours as Branc h needed for Wheezing or Shortness of Breath. albuterol Yes [id number] 2{puff} Inhale 2 [facility] (PROAIR 9-03 Puffs ity of HFA) 90 00:00: every 6 [place] mcg/actuati 00 (six) Medical on inhaler hours as Branc h needed for Wheezing or Shortness of Breath. albuterol Yes [id number] 2{puff} Inhale 2 [facility] (PROAIR 9-03 Puffs ity of HFA) 90 00:00: every 6 [place] mcg/actuati 00 (six) Medical on inhaler hours as Branc h needed for Wheezing or Shortness of Breath. albuterol 0 Yes [id number] 2{puff} Inhale 2 [facility] (PROAIR 9-03 Puffs ity of HFA) 90 00:00: every 6 [place] mcg/actuati 00 (six) Medical on inhaler hours as Branc h needed for Wheezing or Shortness of Breath. albuterol 0 Yes [id number] 2{puff} Inhale 2 [facility] (PROAIR 9-03 Puffs ity of HFA) 90 00:00: every 6 [place] mcg/actuati 00 (six) Medical on inhaler hours as Branc h needed for Wheezing or Shortness of Breath. albuterol 0 Yes [id number] 2{puff} Inhale 2 [facility] (PROAIR 9-03 Puffs ity of HFA) 90 00:00: every 6 [place] mcg/actuati 00 (six) Medical on inhaler hours as Branc h needed for Wheezing or Shortness of Breath. albuterol Yes [id number] 2{puff} Inhale 2 [facility] (PROAIR 9-03 Puffs ity of HFA) 90 00:00: every 6 [place] mcg/actuati 00 (six) Medical on inhaler hours as Branc h needed for Wheezing or Shortness of Breath. albuterol Yes [id number] 2{puff} Inhale 2 [facility] (PROAIR 9-03 Puffs ity of HFA) 90 00:00: every 6 [place] mcg/actuati 00 (six) Medical on inhaler hours as Branc h needed for Wheezing or Shortness of Breath. albuterol Yes [id number] 2{puff} Inhale 2 [facility] (PROAIR 9-03 Puffs ity of HFA) 90 00:00: every 6 [place] mcg/actuati 00 (six) Medical on inhaler hours as Branc h needed for Wheezing or Shortness of Breath. amLODIPine 2021- No [id number] 2.5mg Take 1 [facility] 2.5 mg 07-20 tablet by ity of tablet 00:00: 00:00 mouth [place] 00 :00 daily. [facility] amLODIPine 2021- No [id number] 2.5mg Take 1 [facility] 2.5 mg 07-20 tablet by ity of tablet 00:00: 00:00 mouth [place] 00 :00 daily. [facility] hydroCHLORO 2021- No [id number] 25mg Take 1 [facility] thiazide 25 07-2015 tablet by it y of mg tablet 00:00: 00:00 mouth [place] 00 :00 daily. [facility] aspirin 81 2019-02 Yes [id number] 81mg Take 1 [facility] mg chewable 0-01 [id number] tablet by i ty of tablet 00:00: mouth [place] 00 daily. [facility] aspirin 81 2019-02 Yes [id number] 81mg Take 1 [facility] mg chewable 0-01 [id number] tablet by i ty of tablet 00:00: mouth [place] 00 daily. [facility] aspirin 81 2019-02 Yes [id number] 81mg Take 1 [facility] mg chewable 0-01 [id number] tablet by i ty of tablet 00:00: mouth [place] 00 daily. [facility] aspirin 81 2020- Yes [id number] 81mg Take 1 [facility] mg chewable 0-01 [id number] tablet by i ty of tablet 00:00: mouth [place] 00 daily. [facility] aspirin 81 2020- Yes [id number] 81mg Take 1 [facility] mg chewable 0-01 [id number] tablet by i ty of tablet 00:00: mouth [place] 00 daily. [facility] aspirin 81 2020- Yes [id number] 81mg Take 1 [facility] mg chewable 0-01 [id number] tablet by i ty of tablet 00:00: mouth [place] 00 daily. [facility] aspirin 81 2020- Yes [id number] 81mg Take 1 [facility] mg chewable 0-01 [id number] tablet by i ty of tablet 00:00: mouth [place] 00 daily. [facility] aspirin 81 2020- Yes [id number] 81mg Take 1 [facility] mg chewable 0-01 [id number] tablet by i ty of tablet 00:00: mouth [place] 00 daily. [facility] aspirin 81 2020- Yes [id number] 81mg Take 1 [facility] mg chewable 0-01 [id number] tablet by i ty of tablet 00:00: mouth [place] 00 daily. [facility] aspirin 81 2020- Yes [id number] 81mg Take 1 [facility] mg chewable 0-01 [id number] tablet by i ty of tablet 00:00: mouth [place] 00 daily. [facility] aspirin 81 2020- Yes [id number] 81mg Take 1 [facility] mg chewable 0-01 [id number] tablet by i ty of tablet 00:00: mouth [place] 00 daily. [facility] aspirin 81 2020- Yes [id number] 81mg Take 1 [facility] mg chewable 0-01 [id number] tablet by i ty of tablet 00:00: mouth [place] 00 daily. [facility] aspirin 81 2020- Yes [id number] 81mg Take 1 [facility] mg chewable 0-01 [id number] tablet by i ty of tablet 00:00: mouth [place] 00 daily. [facility] aspirin 81 2020- Yes [id number] 81mg Take 1 [facility] mg chewable 0-01 [id number] tablet by i ty of tablet 00:00: mouth [place] 00 daily. [facility] aspirin 81 2020- Yes [id number] 81mg Take 1 [facility] mg chewable 0-01 [id number] tablet by i ty of tablet 00:00: mouth [place] 00 daily. [facility] aspirin 81 2020- Yes [id number] 81mg Take 1 [facility] mg chewable 0-01 [id number] tablet by i ty of tablet 00:00: mouth [place] 00 daily. [facility] aspirin 81 2020- Yes [id number] 81mg Take 1 [facility] mg chewable 0-01 [id number] tablet by i ty of tablet 00:00: mouth [place] 00 daily. [facility] aspirin 81 2020- Yes [id number] 81mg Take 1 [facility] mg chewable 0-01 [id number] tablet by i ty of tablet 00:00: mouth [place] 00 daily. [facility] aspirin 81 2020- Yes [id number] 81mg Take 1 [facility] mg chewable 0-01 [id number] tablet by i ty of tablet 00:00: mouth [place] 00 daily. [facility] aspirin 81 2020- Yes [id number] 81mg Take 1 [facility] mg chewable 0-01 [id number] tablet by i ty of tablet 00:00: mouth [place] 00 daily. [facility] aspirin 81 2020- Yes [id number] 81mg Take 1 [facility] mg chewable 0-01 [id number] tablet by i ty of tablet 00:00: mouth [place] 00 daily. [facility] aspirin 81 2020- Yes [id number] 81mg Take 1 [facility] mg chewable 0-01 [id number] tablet by i ty of tablet 00:00: mouth [place] 00 daily. [facility] aspirin 81 2020- Yes [id number] 81mg Take 1 [facility] mg chewable 0-01 [id number] tablet by i ty of tablet 00:00: mouth [place] 00 daily. [facility] aspirin 81 2020- Yes [id number] 81mg Take 1 [facility] mg chewable 0-01 [id number] tablet by i ty of tablet 00:00: mouth [place] 00 daily. [facility] aspirin 81 2020- Yes [id number] 81mg Take 1 [facility] mg chewable 0-01 [id number] tablet by i ty of tablet 00:00: mouth [place] 00 daily. [facility] aspirin 81 2020- Yes [id number] 81mg Take 1 [facility] mg chewable 0-01 [id number] tablet by i ty of tablet 00:00: mouth [place] 00 daily. [facility] aspirin 81 2020- Yes [id number] 81mg Take 1 [facility] mg chewable 0-01 [id number] tablet by i ty of tablet 00:00: mouth [place] 00 daily. [facility] aspirin 81 2020- Yes [id number] 81mg Take 1 [facility] mg chewable 0-01 [id number] tablet by i ty of tablet 00:00: mouth [place] 00 daily. [facility] aspirin 81 2020- Yes [id number] 81mg Take 1 [facility] mg chewable 0-01 [id number] tablet by i ty of tablet 00:00: mouth [place] 00 daily. [facility] aspirin 81 2020- Yes [id number] 81mg Take 1 [facility] mg chewable 0-01 [id number] tablet by i ty of tablet 00:00: mouth [place] 00 daily. [facility] aspirin 81 2020- Yes [id number] 81mg Take 1 [facility] mg chewable 0-01 [id number] tablet by i ty of tablet 00:00: mouth [place] 00 daily. [facility] aspirin 81 2020- Yes [id number] 81mg Take 1 [facility] mg chewable 0-01 [id number] tablet by i ty of tablet 00:00: mouth [place] 00 daily. [facility] aspirin 81 2020- Yes [id number] 81mg Take 1 [facility] mg chewable 0-01 [id number] tablet by i ty of tablet 00:00: mouth [place] 00 daily. [facility] aspirin 81 2020- Yes [id number] 81mg Take 1 [facility] mg chewable 0-01 [id number] tablet by i ty of tablet 00:00: mouth [place] 00 daily. [facility] aspirin 81 2020- Yes [id number] 81mg Take 1 [facility] mg chewable 0-01 [id number] tablet by i ty of tablet 00:00: mouth [place] 00 daily. [facility] aspirin 81 2020- Yes [id number] 81mg Take 1 [facility] mg chewable 0-01 [id number] tablet by i ty of tablet 00:00: mouth [place] 00 daily. [facility] aspirin 81 2020- Yes [id number] 81mg Take 1 [facility] mg chewable 0-01 [id number] tablet by i ty of tablet 00:00: mouth [place] 00 daily. [facility] aspirin 81 2020- Yes [id number] 81mg Take 1 [facility] mg chewable 0-01 [id number] tablet by i ty of tablet 00:00: mouth [place] 00 daily. [facility] aspirin 81 2020- Yes [id number] 81mg Take 1 [facility] mg chewable 0-01 [id number] tablet by i ty of tablet 00:00: mouth [place] 00 daily. [facility] aspirin 81 2020- Yes [id number] 81mg Take 1 [facility] mg chewable 0-01 [id number] tablet by i ty of tablet 00:00: mouth [place] 00 daily. [facility] aspirin 81 2020- Yes [id number] 81mg Take 1 [facility] mg chewable 0-01 [id number] tablet by i ty of tablet 00:00: mouth [place] 00 daily. [facility] aspirin 81 2020- Yes [id number] 81mg Take 1 [facility] mg chewable 0-01 [id number] tablet by i ty of tablet 00:00: mouth [place] 00 daily. [facility] aspirin 81 2020- Yes [id number] 81mg Take 1 [facility] mg chewable 0-01 [id number] tablet by i ty of tablet 00:00: mouth [place] 00 daily. [facility] aspirin 81 2020- Yes [id number] 81mg Take 1 [facility] mg chewable 0-01 [id number] tablet by i ty of tablet 00:00: mouth [place] 00 daily. [facility] aspirin 81 2020- Yes [id number] 81mg Take 1 [facility] mg chewable 0-01 [id number] tablet by i ty of tablet 00:00: mouth [place] 00 daily. [facility] aspirin 81 2020- Yes [id number] 81mg Take 1 [facility] mg chewable 0-01 [id number] tablet by i ty of tablet 00:00: mouth [place] 00 daily. [facility] aspirin 81 2020- Yes [id number] 81mg Take 1 [facility] mg chewable 0-01 [id number] tablet by i ty of tablet 00:00: mouth [place] 00 daily. [facility] aspirin 81 2020- Yes [id number] 81mg Take 1 [facility] mg chewable 0-01 [id number] tablet by i ty of tablet 00:00: mouth [place] 00 daily. [facility] aspirin 81 2020- Yes [id number] 81mg Take 1 [facility] mg chewable 0-01 [id number] tablet by i ty of tablet 00:00: mouth [place] 00 daily. [facility] aspirin 81 2020- Yes [id number] 81mg Take 1 [facility] mg chewable 0-01 [id number] tablet by i ty of tablet 00:00: mouth [place] 00 daily. [facility] aspirin 81 2020- Yes [id number] 81mg Take 1 [facility] mg chewable 0-01 [id number] tablet by i ty of tablet 00:00: mouth [place] 00 daily. [facility] aspirin 81 2020- Yes [id number] 81mg Take 1 [facility] mg chewable 0-01 [id number] tablet by i ty of tablet 00:00: mouth [place] 00 daily. [facility] aspirin 81 2020- Yes [id number] 81mg Take 1 [facility] mg chewable 0-01 [id number] tablet by i ty of tablet 00:00: mouth [place] 00 daily. [facility] aspirin 81 2020- Yes [id number] 81mg Take 1 [facility] mg chewable 0-01 [id number] tablet by i ty of tablet 00:00: mouth [place] 00 daily. [facility] aspirin 81 2020- Yes [id number] 81mg Take 1 [facility] mg chewable 0-01 [id number] tablet by i ty of tablet 00:00: mouth [place] 00 daily. [facility] aspirin 81 2020- Yes [id number] 81mg Take 1 [facility] mg chewable 0-01 [id number] tablet by i ty of tablet 00:00: mouth [place] 00 daily. [facility] aspirin 81 2020- Yes [id number] 81mg Take 1 [facility] mg chewable 0-01 [id number] tablet by i ty of tablet 00:00: mouth [place] 00 daily. [facility] aspirin 81 2020- Yes [id number] 81mg Take 1 [facility] mg chewable 0-01 [id number] tablet by i ty of tablet 00:00: mouth [place] 00 daily. [facility] aspirin 81 2020- Yes [id number] 81mg Take 1 [facility] mg chewable 0-01 [id number] tablet by i ty of tablet 00:00: mouth [place] 00 daily. [facility] aspirin 81 2020- Yes [id number] 81mg Take 1 [facility] mg chewable 0-01 [id number] tablet by i ty of tablet 00:00: mouth [place] 00 daily. [facility] aspirin 81 2020- Yes [id number] 81mg Take 1 [facility] mg chewable 0-01 [id number] tablet by i ty of tablet 00:00: mouth [place] 00 daily. [facility] aspirin 81 2020- Yes [id number] 81mg Take 1 [facility] mg chewable 0-01 [id number] tablet by i ty of tablet 00:00: mouth [place] 00 daily. [facility] aspirin 81 2020- Yes [id number] 81mg Take 1 [facility] mg chewable 0-01 [id number] tablet by i ty of tablet 00:00: mouth [place] 00 daily. [facility] aspirin 81 2020- Yes [id number] 81mg Take 1 [facility] mg chewable 0-01 [id number] tablet by i ty of tablet 00:00: mouth [place] 00 daily. [facility] aspirin 81 2020- Yes [id number] 81mg Take 1 [facility] mg chewable 0-01 [id number] tablet by i ty of tablet 00:00: mouth [place] 00 daily. [facility] aspirin 81 2020- Yes [id number] 81mg Take 1 [facility] mg chewable 0-01 [id number] tablet by i ty of tablet 00:00: mouth [place] 00 daily. [facility] aspirin 81 2020- Yes [id number] 81mg Take 1 [facility] mg chewable 0-01 [id number] tablet by i ty of tablet 00:00: mouth [place] 00 daily. [facility] aspirin 81 2020- Yes [id number] 81mg Take 1 [facility] mg chewable 0-01 [id number] tablet by i ty of tablet 00:00: mouth [place] 00 daily. [facility] aspirin 81 2020- Yes [id number] 81mg Take 1 [facility] mg chewable 0-01 [id number] tablet by i ty of tablet 00:00: mouth [place] 00 daily. [facility] aspirin 81 2020- Yes [id number] 81mg Take 1 [facility] mg chewable 0-01 [id number] tablet by i ty of tablet 00:00: mouth [place] 00 daily. [facility] aspirin 81 2020- Yes [id number] 81mg Take 1 [facility] mg chewable 0-01 [id number] tablet by i ty of tablet 00:00: mouth [place] 00 daily. [facility] aspirin 81 2020- Yes [id number] 81mg Take 1 [facility] mg chewable 0-01 [id number] tablet by i ty of tablet 00:00: mouth [place] 00 daily. [facility] aspirin 81 2020- Yes [id number] 81mg Take 1 [facility] mg chewable 0-01 [id number] tablet by i ty of tablet 00:00: mouth [place] 00 daily. [facility] aspirin 81 2020- Yes [id number] 81mg Take 1 [facility] mg chewable 0-01 [id number] tablet by i ty of tablet 00:00: mouth [place] 00 daily. [facility] aspirin 81 2020- Yes [id number] 81mg Take 1 [facility] mg chewable 0-01 [id number] tablet by i ty of tablet 00:00: mouth [place] 00 daily. [facility] aspirin 81 2020- Yes [id number] 81mg Take 1 [facility] mg chewable 0-01 [id number] tablet by i ty of tablet 00:00: mouth [place] 00 daily. [facility] aspirin 81 2020- Yes [id number] 81mg Take 1 [facility] mg chewable 0-01 [id number] tablet by i ty of tablet 00:00: mouth [place] 00 daily. [facility] aspirin 81 2020- Yes [id number] 81mg Take 1 [facility] mg chewable 0-01 [id number] tablet by i ty of tablet 00:00: mouth [place] 00 daily. [facility] aspirin 81 2020- Yes [id number] 81mg Take 1 [facility] mg chewable 0-01 [id number] tablet by i ty of tablet 00:00: mouth [place] 00 daily. [facility] aspirin 81 2020- Yes [id number] 81mg Take 1 [facility] mg chewable 0-01 [id number] tablet by i ty of tablet 00:00: mouth [place] 00 daily. [facility] aspirin 81 2020- Yes [id number] 81mg Take 1 [facility] mg chewable 0-01 [id number] tablet by i ty of tablet 00:00: mouth [place] 00 daily. [facility] aspirin 81 2020- Yes [id number] 81mg Take 1 [facility] mg chewable 0-01 [id number] tablet by i ty of tablet 00:00: mouth [place] 00 daily. [facility] aspirin 81 2020- Yes [id number] 81mg Take 1 [facility] mg chewable 0-01 [id number] tablet by i ty of tablet 00:00: mouth [place] 00 daily. [facility] aspirin 81 2020- Yes [id number] 81mg Take 1 [facility] mg chewable 0-01 [id number] tablet by i ty of tablet 00:00: mouth [place] 00 daily. [facility] aspirin 81 2020- Yes [id number] 81mg Take 1 [facility] mg chewable 0-01 [id number] tablet by i ty of tablet 00:00: mouth [place] 00 daily. [facility] aspirin 81 2020- Yes [id number] 81mg Take 1 [facility] mg chewable 0-01 [id number] tablet by i ty of tablet 00:00: mouth [place] 00 daily. [facility] aspirin 81 2020- Yes [id number] 81mg Take 1 [facility] mg chewable 0-01 [id number] tablet by i ty of tablet 00:00: mouth [place] 00 daily. [facility] aspirin 81 2020- Yes [id number] 81mg Take 1 [facility] mg chewable 0-01 [id number] tablet by i ty of tablet 00:00: mouth [place] 00 daily. [facility] aspirin 81 2020- Yes [id number] 81mg Take 1 [facility] mg chewable 0-01 [id number] tablet by i ty of tablet 00:00: mouth [place] 00 daily. [facility] aspirin 81 2020- Yes [id number] 81mg Take 1 [facility] mg chewable 0-01 [id number] tablet by i ty of tablet 00:00: mouth [place] 00 daily. [facility] aspirin 81 2020- Yes [id number] 81mg Take 1 [facility] mg chewable 0-01 [id number] tablet by i ty of tablet 00:00: mouth [place] 00 daily. [facility] aspirin 81 2019-02 Yes [id number] 81mg Take 1 [facility] mg chewable 0-01 [id number] tablet by i ty of tablet 00:00: mouth [place] 00 daily. [facility] aspirin 81 2019-02 Yes [id number] 81mg Take 1 [facility] mg chewable 0-01 [id number] tablet by i ty of tablet 00:00: mouth [place] 00 daily. [facility] aspirin 81 2019-02 Yes [id number] 81mg Take 1 [facility] mg chewable 0-01 [id number] tablet by i ty of tablet 00:00: mouth [place] 00 daily. [facility] aspirin 81 2019-02 Yes [id number] 81mg Take 1 [facility] mg chewable 0-01 [id number] tablet by i ty of tablet 00:00: mouth [place] 00 daily. [facility] aspirin 81 2019-02 Yes [id number] 81mg Take 1 [facility] mg chewable 0-01 [id number] tablet by i ty of tablet 00:00: mouth [place] 00 daily. [facility] aspirin 81 2019-02 Yes [id number] 81mg Take 1 [facility] mg chewable 0-01 [id number] tablet by i ty of tablet 00:00: mouth [place] 00 daily. [facility] aspirin 81 2019-02 Yes [id number] 81mg Take 1 [facility] mg chewable 0-01 [id number] tablet by i ty of tablet 00:00: mouth [place] 00 daily. [facility] aspirin 81 2019-02 Yes [id number] 81mg Take 1 [facility] mg chewable 0-01 [id number] tablet by i ty of tablet 00:00: mouth [place] 00 daily. [facility] aspirin 81 2019-02 Yes [id number] 81mg Take 1 [facility] mg chewable 0-01 [id number] tablet by i ty of tablet 00:00: mouth [place] 00 daily. [facility] aspirin 81 2019-02 Yes [id number] 81mg Take 1 [facility] mg chewable 0-01 [id number] tablet by i ty of tablet 00:00: mouth [place] 00 daily. [facility] pantoprazol 2019-02- No [id number] 20mg Take 1 [facility] e 20 mg EC 0-01 07-15 tablet by ity of tablet 00:00: 00:00 mouth [place] 00 :00 daily. Medical Take 30 Branch mins before breakfast. losartan 2019- Yes [facility] QD [facility] for premedicat ion hydrALAZINE 2020-0 Yes 50mg Q.[id number] Take [address] [facility] (APRESOLINE 2-17 [id number] by [facility] ) 50 MG 00:00: 3D (three) [facility] tablet 00 times Center daily . hydroCHLORO 2020-0 Yes 25mg QD Take [address] [facility] thiazide 2-17 [facility] (HYDRODIURI 00:00: daily. [facility]) 25 MG 00 Center tablet hydrALAZINE 2020-0 Yes 50mg Q.[id number] Take [address] [facility] (APRESOLINE 2-17 [id number] [facility] ) 50 MG 00:00: 3D (three) Medical tablet 00 times [facility] daily . hydroCHLORO 2020-0 Yes 25mg QD Take [address] [facility] thiazide 2-17 [facility] (HYDRODIURI 00:00: daily. [facility]) 25 MG 00 [facility] tablet hydrALAZINE 2020-0 Yes 50mg Q.[id number] Take [address] [facility] (APRESOLINE 2-17 [id number] [facility] ) 50 MG 00:00: 3D (three) Medical tablet 00 times [facility] daily . hydroCHLORO 2020-0 Yes 25mg QD Take [address] [facility] thiazide 2-17 [facility] (HYDRODIURI 00:00: daily. [facility]) 25 MG 00 Center tablet hydrALAZINE 2020-0 Yes 50mg Q.[id number] Take [address] [facility] (APRESOLINE 2-17 [id number] [facility] ) 50 MG 00:00: 3D (three) Medical tablet 00 times [facility] daily . hydroCHLORO 2020-0 Yes 25mg QD Take [address] [facility] thiazide 2-17 [facility] (HYDRODIURI 00:00: daily. [facility]) 25 MG 00 Center tablet hydrALAZINE 2020-0 Yes 50mg Q.[id number] Take [address] [facility] (APRESOLINE 2-17 [id number] [facility] ) 50 MG 00:00: 3D (three) Medical tablet 00 times [facility] daily . hydroCHLORO 2020-0 Yes 25mg QD Take [address] [facility] thiazide 2-17 [facility] (HYDRODIURI 00:00: daily. [facility]) 25 MG 00 Center tablet hydrALAZINE 2020-0 Yes 50mg Q.[id number] Take [address] [facility] (APRESOLINE 2-17 [id number] [facility] ) 50 MG 00:00: 3D (three) Medical tablet 00 times Center daily . hydroCHLORO 2020-0 Yes 25mg QD Take [address] [facility] thiazide 2-17 [facility] (HYDRODIURI 00:00: daily. [facility]) 25 MG 00 Center tablet hydrALAZINE 2020-0 Yes 50mg Q.[id number] Take [address] [facility] (APRESOLINE 2-17 [id number] by [facility] ) 50 MG 00:00: 3D (three) Medical tablet 00 times Center daily . hydroCHLORO 2020-0 Yes 25mg QD Take [address] [facility] thiazide 2-17 [facility] (HYDRODIURI 00:00: daily. [facility]) 25 MG 00 Center tablet hydrALAZINE 2020-0 Yes 50mg Q.[id number] Take [address] [facility] (APRESOLINE 2-17 [id number] by mouth [facility] ) 50 MG 00:00: 3D (three) Medical tablet 00 times Center daily . hydroCHLORO 2020-0 Yes 25mg QD Take [address] [facility] thiazide 2-17 [facility] (HYDRODIURI 00:00: daily. [facility]) 25 MG 00 Center tablet hydrALAZINE 2020-0 Yes 50mg Q.[id number] Take [address] [facility] (APRESOLINE 2-17 [id number] by mouth [facility] ) 50 MG 00:00: 3D (three) Medical tablet 00 times Center daily . hydroCHLORO 2020-0 Yes 25mg QD Take [address] [facility] thiazide 2-17 by mouth [facility] (HYDRODIURI 00:00: daily. [facility]) 25 MG 00 Center tablet hydrALAZINE 2020-0 Yes 50mg Q.[id number] Take [address] [facility] (APRESOLINE 2-17 [id number] by mouth [facility] ) 50 MG [...] [facility] tablet 00:[facility]: daily. [facility] 00 Center aspirin 81 2019-0 Yes 81mg QD Take [address] [facility] chewable 6-21 by mouth [facility] tablet 00:00: daily. [address] aspirin 81 2019-0 Yes 81mg QD Take [address] [facility] chewable 6-21 by mouth [facility] tablet 00:00: daily. [address] aspirin 81 2019-0 Yes 81mg QD Take [address] [facility] chewable 6-21 by mouth [facility] tablet 00:00: daily. [address] aspirin 81 2019-0 Yes 81mg QD Take [address] [facility] chewable 6-21 by mouth [facility] tablet 00:00: daily. [address] aspirin 81 2019-0 Yes 81mg QD Take [address] [facility] chewable 6-21 by mouth [facility] tablet 00:00: daily. [address] aspirin 81 2019-0 Yes 81mg QD Take [address] MG chewable 6-21 by mouth [facility] tablet 00:00: daily. [address] aspirin 81 2019-0 Yes 81mg QD Take [address] [facility] chewable 6-21 by mouth [facility] tablet 00:00: daily. [address] aspirin 81 2019-0 Yes 81mg QD Take [address] [facility] chewable 6-21 by mouth [facility] tablet 00:00: daily. [address] aspirin 81 2019-0 Yes 81mg QD Take [address] [facility] chewable 6-21 by mouth [facility] tablet 00:00: daily. [address] atorvastati 2017-02 Yes 40mg QD Take [address] [facility] (LIPITOR) 1-30 by mouth [facility] 40 MG 00:00: daily. Medical tablet [address] [place] [address] amLODIPine 2017-02 Yes 2.5mg QD Take 2.[address] (NORVASC) 5 1-30 mg by [facility] tablet 00:[facility]: mouth Medical 00 daily . [place] atorvastati 2017-02 Yes 40mg QD Take [address] [facility] (LIPITOR) 1-30 by mouth [facility] 40 MG 00:00: daily. Medical tablet [address] [place] [address] amLODIPine 2017-02 Yes 2.5mg QD Take 2.[address] (NORVASC) 5 1-30 mg by [facility] tablet 00:00: mouth Medical 00 daily . [place] atorvastati 2017-02 Yes 40mg QD Take [address] [facility] (LIPITOR) 1-30 by mouth [facility] 40 MG 00:00: daily. Medical tablet 00 [place] amLODIPine 2017-02 Yes 2.5mg QD Take 2.[address] (NORVASC) 5 1-30 mg by [facility] tablet 00:00: mouth Medical 00 daily . [place] atorvastati 2017-02 Yes 40mg QD Take [address] [facility] (LIPITOR) 1-30 by mouth [facility] 40 MG 00:00: daily. Medical tablet 00 [place] amLODIPine 2017-02 Yes 2.5mg QD Take 2.[address] (NORVASC) 5 1-30 mg by [facility] tablet 00:00: mouth Medical 00 daily . [place] atorvastati 2017-02 Yes 40mg QD Take [address] [facility] (LIPITOR) 1-30 by mouth [facility] 40 MG 00:00: daily. Medical tablet 00 [place] amLODIPine 2017-02 Yes 2.5mg QD Take 2.[address] (NORVASC) 5 1-30 mg by [facility] tablet 00:00: mouth Medical 00 daily . [place] atorvastati 2017-02 Yes 40mg QD Take [address] [facility] (LIPITOR) 1-30 by mouth [facility] 40 MG 00:00: daily. Medical tablet 00 [place] amLODIPine 2017-02 Yes 2.5mg QD Take 2.[address] (NORVASC) 5 1-30 mg by [facility] tablet 00:00: mouth Medical 00 daily . [place] atorvastati 2017-02 Yes 40mg QD Take [address] [facility] (LIPITOR) 1-30 by mouth [facility] 40 MG 00:00: daily. Medical tablet 00 [place] amLODIPine 2017-02 Yes 2.5mg QD Take 2.[address] (NORVASC) 5 1-30 mg by [facility] tablet 00:00: mouth Medical 00 daily . [place] atorvastati 2017-02 Yes 40mg QD Take [address] [facility] (LIPITOR) 1-30 by mouth [facility] 40 MG 00:00: daily. Medical tablet 00 [place] amLODIPine 2017-02 Yes 2.5mg QD Take 2.[address] (NORVASC) 5 1-30 mg by [facility] tablet 00:00: mouth Medical 00 daily . [place] atorvastati 2017-02 Yes 40mg QD Take [address] [facility] (LIPITOR) 1-30 by mouth [facility] 40 MG 00:00: daily. Medical tablet 00 [place] amLODIPine 2017-02 Yes 2.5mg QD Take 2.[address] (NORVASC) 5 1-30 mg by [facility] tablet 00:00: mouth Medical 00 daily . [place] atorvastati 2017-02 Yes 40mg QD Take [address] [facility] (LIPITOR) 1-30 by mouth [facility] 40 MG 00:00: daily. Medical tablet 00 [place] amLODIPine 2017-02 Yes 2.5mg QD Take 2.[address] (NORVASC) 5 1-30 mg by [facility] tablet 00:00: mouth Medical 00 daily . Center Immunizations Ordered Filled Immunization Date Status Comments [facility] e Immunization Name Name Pneumococcal 20 2022-05-17 Completed [facility] Conjugate, PCV20 00:00:00 [facility] dical (Prevnar 20) Branch Pneumococcal 20 2022-05-17 Completed [facility] Conjugate, PCV20 00:00:00 [facility] dical (Prevnar 20) Branch Pneumococcal 20 2022-05-17 Completed [facility] Conjugate, PCV20 00:00:00 [place] [facility] (Prevnar 20) Branch Pneumococcal 20 2022-05-17 Completed [facility] of Conjugate, PCV20 00:00:00 [facility] dical (Prevnar 20) Branch Pneumococcal 20 2022-05-17 Completed [facility] of Conjugate, PCV20 00:00:00 [facility] dical (Prevnar 20) Branch Pneumococcal 20 2022-05-17 Completed [facility] of Conjugate, PCV20 00:00:00 [facility] dical (Prevnar 20) Branch Pneumococcal 20 2022-05-17 Completed [facility] Conjugate, PCV20 00:00:00 [place] [facility] (Prevnar 20) Branch Pneumococcal 20 2022-05-17 Completed [facility] of Conjugate, PCV20 00:00:00 [facility] dical (Prevnar 20) Branch Pneumococcal 20 2022-05-17 Completed [facility] of Conjugate, PCV20 00:00:00 [facility] dical (Prevnar 20) Branch Pneumococcal 20 2022-05-17 Completed [facility] of Conjugate, PCV20 00:00:00 [facility] dical (Prevnar 20) Branch Pneumococcal 20 2022-05-17 Completed [facility] Conjugate, PCV20 00:00:00 [place] [facility] (Prevnar 20) Branch Pneumococcal 20 2022-05-17 Completed [facility] Conjugate, PCV20 00:00:00 [place] [facility] (Prevnar 20) Branch Pneumococcal 20 2022-05-17 Completed [facility] Conjugate, PCV20 00:00:00 [place] [facility] (Prevnar 20) Branch Pneumococcal 20 2022-05-17 Completed [facility] Conjugate, PCV20 00:00:00 [place] [facility] (Prevnar 20) Branch Pneumococcal 20 2022-05-17 Completed [facility] Conjugate, PCV20 00:00:00 [place] [facility] (Prevnar 20) Branch Pneumococcal 20 2022-05-17 Completed [facility] Conjugate, PCV20 00:00:00 [place] [facility] (Prevnar 20) Branch Pneumococcal 20 2022-05-17 Completed [facility] Conjugate, PCV20 00:00:00 [place] [facility] (Prevnar 20) Branch Pneumococcal 20 2022-05-17 Completed [facility] Conjugate, PCV20 00:00:00 [place] [facility] (Prevnar 20) Branch Pneumococcal 20 2022-05-17 Completed [facility] Conjugate, PCV20 00:00:00 [place] [facility] (Prevnar 20) Branch Pneumococcal 20 2022-05-17 Completed [facility] Conjugate, PCV20 00:00:00 [place] [facility] (Prevnar 20) Branch Pneumococcal 20 2022-05-17 Completed [facility] Conjugate, PCV20 00:00:00 [place] [facility] (Prevnar 20) Branch Pneumococcal 20 2022-05-17 Completed [facility] Conjugate, PCV20 00:00:00 [place] [facility] (Prevnar 20) Branch Pneumococcal 20 2022-05-17 Completed [facility] Conjugate, PCV20 00:00:00 [place] [facility] (Prevnar 20) Branch Pneumococcal 20 2022-05-17 Completed [facility] Conjugate, PCV20 00:00:00 [place] [facility] (Prevnar 20) Branch Pneumococcal 20 2022-05-17 Completed [facility] Conjugate, PCV20 00:00:00 [place] [facility] (Prevnar 20) Branch Pneumococcal 20 2022-05-17 [...] [facility] Conjugate, PCV20 00:00:00 [place] [facility] (Prevnar 20) Branch Pneumococcal 20 2022-05-17 Completed [facility] Conjugate, PCV20 00:00:00 [place] [facility] (Prevnar 20) Branch Pneumococcal 20 2022-05-17 Completed [facility] Conjugate, PCV20 00:00:00 [place] [facility] (Prevnar 20) Branch Pneumococcal 20 2022-05-17 Completed [facility] Conjugate, PCV20 00:00:00 [place] [facility] (Prevnar 20) Branch Pneumococcal 20 2022-05-17 Completed [facility] Conjugate, PCV20 00:00:00 [place] [facility] (Prevnar 20) Branch Pneumococcal 20 2022-05-17 Completed [facility] Conjugate, PCV20 00:00:00 [place] [facility] (Prevnar 20) Branch Pneumococcal 20 2022-05-17 Completed [facility] Conjugate, PCV20 00:00:00 [place] [facility] (Prevnar 20) Branch Pneumococcal 20 2022-05-17 Completed [facility] Conjugate, PCV20 00:00:00 [place] [facility] (Prevnar 20) Branch Pneumococcal 20 2022-05-17 Completed [facility] Conjugate, PCV20 00:00:00 [place] [facility] (Prevnar 20) Branch Pneumococcal 20 2022-05-17 Completed [facility] Conjugate, PCV20 00:00:00 [place] [facility] (Prevnar 20) Branch Pneumococcal 20 2022-05-17 [...] [facility] of Conjugate, PCV20 00:00:00 [place] [facility] (Prevnar 20) Branch Pneumococcal 20 2022-05-17 Completed [facility] Conjugate, PCV20 00:00:00 [place] [facility] (Prevnar 20) Branch Pneumococcal 20 2022-05-17 Completed [facility] Conjugate, PCV20 00:00:00 [place] [facility] (Prevnar 20) Branch Pneumococcal 20 2022-05-17 Completed [facility] Conjugate, PCV20 00:00:00 [place] [facility] (Prevnar 20) Branch Pneumococcal 20 2022-05-17 Completed [facility] Conjugate, PCV20 00:00:00 [place] [facility] (Prevnar 20) Branch Pneumococcal 20 2022-05-17 Completed [facility] Conjugate, PCV20 00:00:00 [place] [facility] (Prevnar 20) Branch Influenza Virus 2021-12-24 Completed [facility] Vaccine,quad 00:[facility] [place] [facility] 65+ Influenza Virus 2021-12-24 Completed [facility] Vaccine,quad 00:00:00 [place] [facility] 65+ Influenza Virus 2021-12-24 Completed [facility] Vaccine,quad 00:00:00 [place] [facility] 65+ Influenza Virus 2021-12-24 Completed [facility] Vaccine,quad 00:00:00 [place] [facility] 65+ Influenza Virus 2021-12-24 Completed [facility] Vaccine,quad 00:00:00 [place] [facility] 65+ Influenza Virus 2021-12-24 Completed [facility] Vaccine,quad 00:00:00 [place] [facility] 65+ Influenza Virus 2021-12-24 Completed [facility] Vaccine,quad 00:00:00 [place] [facility] 65+ Influenza Virus 2021-12-24 Completed [facility] Vaccine,quad 00:00:00 [place] [facility] 65+ Influenza Virus 2021-12-24 Completed [facility] Vaccine,quad 00:00:00 [place] [facility] 65+ Influenza Virus 2021-12-24 Completed [facility] Vaccine,quad 00:00:00 [place] [facility] 65+ Influenza Virus 2021-12-24 Completed [facility] Vaccine,quad 00:00:00 [place] [facility] 65+ Influenza Virus 2021-12-24 Completed [facility] Vaccine,quad 00:00:00 [place] [facility] 65+ Influenza Virus 2021-12-24 Completed [facility] Vaccine,quad 00:00:00 [place] [facility] 65+ Influenza Virus 2021-12-24 Completed [facility] Vaccine,quad 00:00:00 [place] [facility] 65+ Influenza Virus 2021-12-24 Completed [facility] Vaccine,quad 00:00:00 [place] [facility] 65+ Influenza Virus 2021-12-24 Completed [facility] Vaccine,quad 00:00:00 [place] [facility] 65+ Influenza Virus 2021-12-24 Completed [facility] Vaccine,quad 00:00:00 [place] [facility] 65+ Influenza Virus 2021-12-24 Completed [facility] Vaccine,quad 00:00:00 [place] [facility] 65+ Influenza Virus 2021-12-24 Completed [facility] Vaccine,quad 00:00:00 [place] [facility] 65+ Influenza Virus 2021-12-24 Completed [facility] Vaccine,quad 00:00:00 [place] [facility] 65+ Influenza Virus 2021-12-24 Completed [facility] Vaccine,quad 00:00:00 [place] [facility] 65+ Influenza Virus 2021-12-24 Completed [facility] Vaccine,quad 00:00:00 [place] [facility] 65+ Influenza Virus 2021-12-24 Completed [facility] Vaccine,quad 00:00:00 [place] [facility] 65+ Influenza Virus 2021-12-24 Completed [facility] Vaccine,quad 00:00:00 [place] [facility] 65+ Influenza Virus 2021-12-24 Completed [facility] Vaccine,quad 00:00:00 [place] [facility] 65+ Influenza Virus 2021-12-24 Completed [facility] Vaccine,quad 00:00:00 [place] [facility] 65+ Influenza Virus 2021-12-24 Completed [facility] Vaccine,quad 00:00:00 [place] [facility] 65+ Influenza Virus 2021-12-24 Completed [facility] Vaccine,quad 00:00:00 [place] [facility] 65+ Influenza Virus 2021-12-24 Completed [facility] Vaccine,quad 00:00:00 [place] [facility] 65+ Influenza Virus 2021-12-24 Completed [facility] Vaccine,quad 00:00:00 [place] [facility] 65+ Influenza Virus 2021-12-24 Completed [facility] Vaccine,quad 00:00:00 [place] [facility] 65+ Influenza Virus 2021-12-24 Completed [facility] Vaccine,quad 00:00:00 [place] [facility] 65+ Influenza Virus 2021-12-24 Completed [facility] Vaccine,quad 00:00:00 [place] [facility] 65+ Influenza Virus 2021-12-24 Completed [facility] Vaccine,quad 00:00:00 [place] [facility] 65+ Influenza Virus 2021-12-24 Completed [facility] of Vaccine,quad 00:00:00 [place] [facility] 65+ Influenza Virus 2021-12-24 Completed [facility] Vaccine,quad 00:00:00 [place] [facility] 65+ Influenza Virus 2021-12-24 Completed [facility] Vaccine,quad 00:00:00 [place] [facility] 65+ Influenza Virus 2021-12-24 Completed [facility] Vaccine,quad 00:00:00 [place] [facility] 65+ Influenza Virus 2021-12-24 Completed [facility] Vaccine,quad 00:00:00 [place] [facility] 65+ Influenza Virus 2021-12-24 Completed [facility] Vaccine,quad 00:00:00 [place] [facility] 65+ Influenza Virus 2021-12-24 Completed [facility] Vaccine,quad 00:00:00 [place] [facility] 65+ Influenza Virus 2021-12-24 Completed [facility] Vaccine,quad 00:00:00 [place] [facility] 65+ Influenza Virus 2021-12-24 Completed [facility] Vaccine,quad 00:00:00 [place] [facility] 65+ Influenza Virus 2021-12-24 Completed [facility] Vaccine,quad 00:00:00 [place] [facility] 65+ Influenza Virus 2021-12-24 Completed [facility] Vaccine,quad 00:00:00 [place] [facility] 65+ Influenza Virus 2021-12-24 Completed [facility] Vaccine,quad 00:00:00 [place] [facility] 65+ Influenza Virus 2021-12-24 Completed [facility] of Vaccine,quad 00:00:00 [place] [facility] 65+ Influenza Virus 2021-12-24 Completed [facility] of Vaccine,quad 00:00:00 [place] [facility] 65+ Influenza Virus 2021-12-24 Completed [facility] Vaccine,quad 00:00:00 [place] [facility] 65+ Influenza Virus 2021-12-24 Completed [facility] Vaccine,quad 00:00:00 [place] [facility] 65+ Influenza Virus 2021-12-24 Completed [facility] of Vaccine,quad 00:00:00 [place] [facility] 65+ Influenza Virus 2021-12-24 Completed [facility] of Vaccine,quad 00:00:00 [place] [facility] 65+ Influenza Virus 2021-12-24 Completed [facility] of Vaccine,quad 00:00:00 [place] [facility] 65+ Influenza Virus 2021-12-24 Completed [facility] of Vaccine,quad 00:00:00 [place] [facility] 65+ Influenza Virus 2021-12-24 Completed [facility] of Vaccine,quad 00:00:00 [place] [facility] 65+ Influenza Virus 2021-12-24 Completed [facility] of Vaccine,quad 00:00:00 [place] [facility] 65+ Influenza Virus 2021-12-24 Completed [facility] of Vaccine,quad 00:00:00 [place] [facility] 65+ Influenza Virus 2021-12-24 Completed [facility] of Vaccine,quad 00:00:00 [place] [facility] 65+ Influenza Virus 2021-12-24 Completed [facility] of Vaccine,quad 00:00:00 [place] [facility] 65+ Influenza Virus 2021-12-24 Completed [facility] of Vaccine,quad 00:00:00 [place] [facility] 65+ Influenza Virus 2021-12-24 Completed [facility] of Vaccine,quad 00:00:00 [place] [facility] 65+ Influenza Virus 2021-12-24 Completed [facility] of Vaccine,quad 00:00:00 [place] [facility] 65+ Influenza Virus 2021-12-24 Completed [facility] of Vaccine,quad 00:00:00 [place] [facility] 65+ Influenza Virus 2021-12-24 Completed [facility] of Vaccine,quad 00:00:00 [place] [facility] 65+ Influenza Virus 2021-12-24 Completed [facility] of Vaccine,quad 00:00:00 [place] [facility] 65+ Influenza Virus 2021-12-24 Completed [facility] of Vaccine,quad 00:00:00 [place] [facility] 65+ Influenza Virus 2021-12-24 Completed [facility] of Vaccine,quad 00:00:00 [place] [facility] 65+ Influenza Virus 2021-12-24 Completed [facility] of Vaccine,quad 00:00:00 [place] [facility] 65+ Influenza Virus 2021-12-24 Completed [facility] of Vaccine,quad 00:00:00 [place] [facility] 65+ Influenza Virus 2021-12-24 Completed [facility] of Vaccine,quad 00:00:00 [place] [facility] 65+ Influenza Virus 2021-12-24 Completed [facility] of Vaccine,quad 00:00:00 [place] [facility] 65+ Influenza Virus 2021-12-24 Completed [facility] of Vaccine,quad 00:00:00 [place] [facility] 65+ Influenza Virus 2021-12-24 Completed [facility] of Vaccine,quad 00:00:00 [place] [facility] 65+ Influenza Virus 2021-12-24 Completed [facility] of Vaccine,quad 00:00:00 [place] [facility] 65+ Influenza Virus 2021-12-24 Completed [facility] of Vaccine,quad 00:00:00 [place] [facility] 65+ Influenza Virus 2021-12-24 Completed [facility] of Vaccine,quad 00:00:00 [place] [facility] 65+ Influenza Virus 2021-12-24 Completed [facility] of Vaccine,quad 00:00:00 [place] [facility] 65+ Influenza Virus 2021-12-24 Completed [facility] of Vaccine,quad 00:00:00 [place] [facility] 65+ Influenza Virus 2021-12-24 Completed [facility] of Vaccine,quad 00:00:00 [place] [facility] 65+ Influenza Virus 2021-12-24 Completed [facility] of Vaccine,quad 00:00:00 [place] [facility] 65+ Influenza Virus 2021-12-24 Completed [facility] of Vaccine,quad 00:00:00 [place] [facility] 65+ Influenza Virus 2021-12-24 Completed [facility] of Vaccine,quad 00:00:00 [facility] Im,preserve Free Branch 65+ SARS-COV-2 COVID-19 2021-01-15 Completed Unive rsity of [...] 2019-11-08 Completed [facility]ive rsity of Quad 00:00:00 [facility] Influenza High Dose 2019-11-08 Completed [facility] rs[facility] of Quad 00:00:00 [facility] Influenza High Dose 2019-11-08 Completed [facility] rs[facility] of Quad 00:00:00 [facility] Influenza High Dose 2019-11-08 Completed [facility] rs[facility] of Quad 00:00:00 [facility] Influenza High Dose 2019-11-08 Completed [facility] of Quad 00:00:00 [facility] Influenza High Dose 2019-11-08 Completed [facility]ive rsity of Quad 00:00:00 [facility] Influenza High Dose 2019-11-08 Completed [facility]ive rsity of Quad 00:00:00 [facility] Influenza High Dose 2019-11-08 Completed [facility] rs[facility] of Quad 00:00:00 [facility] Influenza High Dose 2019-11-08 Completed [facility]ive rsity of Quad 00:00:00 [facility] Influenza High Dose 2019-11-08 Completed [facility]ive rsity of Quad 00:00:00 [facility] Influenza High Dose 2019-11-08 Completed [facility] rsity of Quad 00:00:00 [facility] Influenza High Dose 2019-11-08 Completed [facility] rsity of Quad 00:00:00 [facility] Influenza High Dose 2019-11-08 Completed [facility]ive rsity of Quad 00:00:00 [facility] Influenza High Dose 2019-11-08 Completed [facility]ive rsity of Quad 00:00:00 [facility] Influenza High Dose 2019-11-08 Completed [facility]ive rsity of Quad 00:00:00 [facility] Influenza High Dose 2019-11-08 Completed [facility]ive rsity of Quad 00:00:00 [facility] Influenza High Dose 2019-11-08 Completed [facility]ive rsity of Quad 00:00:00 [facility] Influenza High Dose 2019-11-08 Completed [facility]ive rsity of Quad 00:00:00 [facility] Influenza High Dose 2019-11-08 Completed [facility] rsity of Quad 00:00:00 [facility] Influenza High Dose 2019-11-08 Completed Unive rsity of 00:00:00 [facility] Influenza High Dose 2019-11-08 Completed [facility]ive rsity of Quad 00:00:00 [facility] Influenza High Dose 2019-11-08 Completed Unive rsity of 00:00:00 [facility] Influenza High Dose 2019-11-08 Completed [facility]ive rsity of Quad 00:00:00 [facility] Influenza High Dose 2019-11-08 Completed Unive rsity of 00:00:00 [facility] Influenza High Dose 2019-11-08 Completed [facility]ive rsity of Quad 00:00:00 [facility] Influenza High Dose 2019-11-08 Completed Unive rsity of 00:00:00 [facility] Influenza High Dose 2019-11-08 Completed [facility]ive rs[facility] of Quad 00:00:00 [facility] Influenza High Dose 2019-11-08 Completed Unive rsity of 00:00:00 [facility] Influenza High Dose 2019-11-08 Completed [facility]ive rsity of Quad 00:00:00 [facility] Influenza High Dose 2019-11-08 Completed Unive rsity of 00:00:00 [facility] Influenza High Dose 2019-11-08 Completed [facility]ive rsity of Quad 00:00:00 [facility] Influenza High Dose 2019-11-08 Completed Unive rsity of 00:00:00 [facility] Influenza High Dose 2019-11-08 Completed [facility]ive rsity of Quad 00:00:00 [facility] Influenza High Dose 2019-11-08 Completed Unive rsity of 00:00:00 [facility] Influenza High Dose 2019-11-08 Completed [facility]ive rsity of Quad 00:00:00 [facility] Influenza High Dose 2019-11-08 Completed Unive rsity of 00:00:00 [facility] Influenza High Dose 2019-11-08 Completed [facility]ive rsity of Quad 00:00:00 [facility] Influenza High Dose 2019-11-08 Completed Unive rsity of 00:00:00 [facility] Influenza High Dose 2019-11-08 Completed [facility]ive rsity of Quad 00:00:00 [facility] Influenza High Dose 2019-11-08 Completed Unive rsity of 00:00:00 [facility] Influenza High Dose 2019-11-08 Completed [facility]ive rs[facility] of Quad 00:00:00 [facility] Influenza High Dose 2019-11-08 Completed Unive rsity of 00:00:00 [facility] Influenza High Dose 2019-11-08 Completed [facility]ive rsity of Quad 00:00:00 [facility] Influenza High Dose 2019-11-08 Completed Unive rsity of 00:00:00 [facility] Influenza High Dose 2019-11-08 Completed [facility]ive rsity of Quad 00:00:00 [facility] Influenza High Dose 2019-11-08 Completed Unive rsity of 00:00:00 [facility] Influenza High Dose 2019-11-08 Completed [facility]ive rsity of Quad 00:00:00 [facility] Influenza High Dose 2019-11-08 Completed Unive rsity of 00:00:00 [facility] Influenza High Dose 2019-11-08 Completed [facility]ive rsity of Quad 00:00:00 [facility] Influenza High Dose 2019-11-08 Completed Unive rsity of 00:00:00 [facility] Influenza High Dose 2019-11-08 Completed [facility]00 [facility] Influenza High Dose 2019-11-08 Completed [facility] 00[facility]00:00 [facility] Influenza High Dose 2019-11-08 Completed [facility] 00:[facility]00 [facility] Influenza High Dose 2019-11-08 Completed [facility] 00:00:00 [facility] Influenza High Dose 2019-11-08 Completed [facility] 00:00[facility]00 [facility] Influenza High Dose 2019-11-08 Completed [facility] 00:00:00 [facility] Influenza High Dose 2019-11-08 Completed [facility] 00:[facility]00 [facility] Influenza High Dose 2019-11-08 Completed [facility] 00:00:00 [facility] Influenza High Dose 2019-11-08 Completed [facility] 00:00[facility]00 [facility] Influenza High Dose 2019-11-08 Completed [facility] 00:00:00 [facility] Influenza High Dose 2019-11-08 Completed [facility] 00:00[facility]00 [facility] Influenza High Dose 2019-11-08 Completed [facility] 00:00:00 [facility] Influenza High Dose 2019-11-08 Completed [facility] 00:00[facility]00 [facility] Influenza High Dose 2019-11-08 Completed [facility] 00:00:00 [facility] Influenza High Dose 2019-11-08 Completed [facility] 00:[facility]00 [facility] Influenza High Dose 2019-11-08 Completed [facility] 00:00:00 [facility] Influenza High Dose 2019-11-08 Completed [facility] 00:00[facility]00 [facility] Influenza High Dose 2019-11-08 Completed [facility] 00:00:00 [facility] Influenza High Dose 2019-11-08 Completed [facility] 00:00[facility]00 [facility] Influenza High Dose 2019-11-08 Completed [facility] 00:00:00 [facility] Influenza High Dose 2019-11-08 Completed [facility] 00:00[facility]00 [facility] Influenza High Dose 2019-11-08 Completed [facility] 00:00:00 [facility] Influenza High Dose 2019-11-08 Completed [facility] 00:00[facility]00 [facility] Influenza High Dose 2019-11-08 Completed [facility] 00:00:00 [facility] Influenza High Dose 2019-11-08 Completed [facility] 00:00[facility]00 [facility] Influenza High Dose 2019-11-08 Completed [facility] 00:00:00 [facility] Influenza High Dose 2019-11-08 Completed [facility] 00:00[facility]00 [facility] Influenza High Dose 2019-11-08 Completed [facility] 00:00:00 [facility] Influenza High Dose 2019-11-08 Completed [facility] 00:00[facility]00 [facility] Influenza High Dose 2019-11-08 Completed [facility] 00:00:00 [facility] Influenza High Dose 2019-11-08 Completed [facility] 00:00[facility]00 [facility] Influenza High Dose 2019-11-08 Completed [facility] 00:00:00 [facility] Influenza High Dose 2019-11-08 Completed [facility] 00:00[facility]00 [facility] Influenza High Dose 2019-11-08 Completed [facility] 00:00:00 [facility] Influenza High Dose 2019-11-08 Completed [facility] 00:00[facility]00 [facility] Influenza High Dose 2019-11-08 Completed [facility] 00:00:00 [facility] Influenza High Dose 2019-11-08 Completed [facility] 00:00[facility]00 [facility] Influenza High Dose 2019-11-08 Completed [facility] 00:00:00 [facility] Influenza High Dose 2019-11-08 Completed [facility] 00:00[facility]00 [facility] Influenza High Dose 2019-11-08 Completed [facility] 00:00:00 [facility] Influenza High Dose 2019-11-08 Completed [facility] 00:00[facility]00 [facility] Influenza High Dose 2019-11-08 Completed [facility] 00:00:00 [facility] Influenza High Dose 2019-11-08 Completed [facility] 00:00[facility]00 [facility] Influenza High Dose 2019-11-08 Completed [facility] 00:00:00 [facility] Influenza High Dose 2019-11-08 Completed [facility] 00:00[facility]00 [facility] Influenza High Dose 2019-11-08 Completed [facility] 00:00:00 [facility] Influenza High Dose 2019-11-08 Completed [facility] 00:00[facility]00 [facility] Influenza High Dose 2019-11-08 Completed [facility] 00:00:00 [facility] Influenza High Dose 2019-11-08 Completed [facility] 00:00[facility]00 [facility] Influenza High Dose 2019-11-08 Completed [facility] 00:00:00 [facility] Influenza High Dose 2019-11-08 Completed [facility] 00:[facility]00 [facility] Influenza High Dose 2019-11-08 Completed [facility] 00:00:00 [facility] Influenza High Dose 2019-11-08 Completed [facility] 00:00[facility]00 [facility] Influenza High Dose 2019-11-08 Completed [facility] 00:00:00 [facility] Influenza High Dose 2019-11-08 Completed [facility] 00:00[facility]00 [facility] Influenza High Dose 2019-11-08 Completed [facility] 00:00:00 [facility] Influenza High Dose 2019-11-08 Completed [facility] 00:[facility]00 [facility] Influenza High Dose 2019-11-08 Completed [facility] 00:00:00 [facility] Influenza High Dose 2019-11-08 Completed [facility] 00:00[facility]00 [facility] Influenza High Dose 2019-11-08 Completed [facility] 00:00:00 [facility] Influenza High Dose 2019-11-08 Completed [facility] 00:00[facility]00 [facility] Influenza High Dose 2019-11-08 Completed [facility] 00:00:00 [facility] Influenza High Dose 2019-11-08 Completed [facility] 00:00[facility]00 [facility] Influenza High Dose 2019-11-08 Completed [facility] 00:00:00 [facility] Influenza High Dose 2019-11-08 Completed [facility] 00:00[facility]00 [facility] Influenza High Dose 2019-11-08 Completed [facility] 00:00:00 [facility] Influenza High Dose 2019-11-08 Completed [facility] 00:00[facility]00 [facility] Influenza High Dose 2019-11-08 Completed [facility] 00:00:00 [facility] Influenza High Dose 2019-11-08 Completed [facility] 00:00[facility]00 [facility] Influenza High Dose 2019-11-08 Completed [facility] 00:00:00 [facility] Influenza High Dose 2019-11-08 Completed [facility] 00:00[facility]00 [facility] Influenza High Dose 2019-11-08 Completed [facility] 00:00:00 [facility] Influenza High Dose 2019-11-08 Completed [facility] 00:00[facility]00 [facility] Influenza High Dose 2019-11-08 Completed [facility] 00:00:00 [facility] Influenza High Dose 2019-11-08 Completed [facility] 00:00[facility]00 [facility] Influenza High Dose 2019-11-08 Completed [facility] 00:00:00 [facility] Influenza High Dose 2019-11-08 Completed [facility] 00:00[facility]00 [facility] Influenza High Dose 2019-11-08 Completed [facility] 00:00:00 [facility] Influenza High Dose 2019-11-08 Completed [facility] 00:00[facility]00 [facility] Influenza High Dose 2019-11-08 Completed [facility] 00:00:00 [facility] Influenza High Dose 2019-11-08 Completed [facility] 00:00:00 [facility] Influenza High Dose 2019-11-08 Completed [facility] 00:00:00 [facility] Influenza High Dose 2019-11-08 Completed [facility] 00:00:00 [facility] Influenza High Dose 2019-11-08 Completed [facility] 00:00:00 [facility] Influenza High Dose 2019-11-08 Completed [facility] 00:00[facility]00 [facility] Influenza High Dose 2019-11-08 Completed [facility] 00:00:00 [facility] Influenza High Dose 2019-11-08 Completed [facility] 00:00:00 [facility] Influenza High Dose 2019-11-08 Completed [facility] 00:00:00 [facility] Influenza High Dose 2019-11-08 Completed [facility] 00:00[facility]00 [facility] Influenza High Dose 2019-11-08 Completed [facility] 00:00:00 [facility] Influenza High Dose 2019-11-08 Completed [facility] 00:00[facility]00 [facility] Influenza High Dose 2019-11-08 Completed [facility] 00:00:00 [facility] Influenza High Dose 2019-11-08 Completed [facility] 00:00[facility]00 [facility] Influenza High Dose 2019-11-08 Completed [facility] 00:00:00 [facility] Influenza High Dose 2019-11-08 Completed [facility] 00:00[facility]00 [facility] Influenza High Dose 2019-11-08 Completed [facility] 00:00:00 [facility] Influenza High Dose 2019-11-08 Completed [facility] 00:00[facility]00 [facility] Influenza High Dose 2019-11-08 Completed [facility] 00:00:00 [facility] Influenza High Dose 2019-11-08 Completed [facility] 00:00[facility]00 [facility] Influenza High Dose 2019-11-08 Completed [facility] 00:00:00 [facility] Influenza High Dose 2019-11-08 Completed [facility] 00:00:00 [facility] Influenza High Dose 2019-11-08 Completed [facility] 00:00:00 [facility] Influenza High Dose 2019-11-08 Completed [facility] 00:00:00 [facility] Influenza High Dose 2019-11-08 Completed [facility] 00:00:00 [facility] Influenza High Dose 2019-11-08 Completed [facility] 00:00:00 [facility] Influenza High Dose 2019-11-08 Completed [facility] 00:00:00 [facility] Influenza High Dose 2019-11-08 Completed [facility] 00:00[facility]00 [facility] Influenza High Dose 2019-11-08 Completed [facility] 00:00:00 [facility] Influenza High Dose 2019-11-08 Completed [facility] 00:00:00 [facility] Influenza High Dose 2019-11-08 Completed [facility] 00:00:00 [facility] Influenza High Dose 2019-11-08 Completed [facility] 00:00[facility]00 [facility] Influenza High Dose 2019-11-08 Completed [facility] 00:00:00 [facility] Influenza High Dose 2019-11-08 Completed [facility] 00:00[facility]00 [facility] Influenza High Dose 2019-11-08 Completed [facility] 00:00:00 [facility] Influenza High Dose 2019-11-08 Completed [facility] 00:00:00 [facility] Influenza High Dose 2019-11-08 Completed [facility] 00:00:00 [facility] Influenza High Dose 2019-11-08 Completed [facility] 00:00:00 [facility] Influenza High Dose 2019-11-08 Completed [facility] 00:00:00 [facility] Influenza High Dose 2019-11-08 Completed [facility] 00:00[facility]00 [facility] Influenza High Dose 2019-11-08 Completed [facility] 00:00:00 [facility] Influenza High Dose 2019-11-08 Completed [facility] 00:00[facility]00 [facility] Influenza High Dose 2019-11-08 Completed [facility] 00:00:00 [facility] Influenza High Dose 2019-11-08 Completed [facility] 00:00[facility]00 [facility] Influenza High Dose 2019-11-08 Completed [facility] 00:00:00 [facility] Influenza High Dose 2019-11-08 Completed [facility] 00:00:00 [facility] Influenza High Dose 2019-11-08 Completed [facility] 00:00:00 [facility] Influenza High Dose 2019-11-08 Completed [facility] 00:00:00 [facility] Influenza High Dose 2019-11-08 Completed [facility] 00:00:00 [facility] Influenza High Dose 2019-11-08 Completed [facility] 00:00:00 [facility] Influenza High Dose 2019-11-08 Completed [facility] 00:00:00 [facility] Influenza High Dose 2019-11-08 Completed [facility] 00:00:00 [facility] Influenza High Dose 2019-11-08 Completed [facility] 00:00:00 [facility] Influenza High Dose 2019-11-08 Completed [facility] 00:00[facility]00 [facility] Influenza High Dose 2019-11-08 Completed [facility] 00:00:00 [facility] Influenza High Dose 2019-02-13 Completed [facility] 00:00:00 [facility] Influenza High Dose 2019-02-13 Completed [facility] 00:00:00 [facility] Influenza High Dose 2019-02-13 Completed [facility] 00:00:00 [facility] Influenza High Dose 2019-02-13 Completed [facility] 00:00:00 [facility] Influenza High Dose 2019-02-13 Completed [facility] 00:00:00 [facility] Influenza High Dose 2019-02-13 Completed [facility] 00:00:00 [facility] Influenza High Dose 2019-02-13 Completed [facility] 00:00:00 [facility] Influenza High Dose 2019-02-13 Completed [facility] 00:00:00 [facility] Influenza High Dose 2019-02-13 Completed [facility] 00:00:00 [facility] Influenza High Dose 2019-02-13 Completed [facility] 00:00:00 [facility] Influenza High Dose 2019-02-13 Completed [facility] 00:00:00 [facility] Influenza High Dose 2019-02-13 Completed [facility] 00:00:00 [facility] Influenza High Dose 2019-02-13 Completed [facility] 00:00:00 [facility] Influenza High Dose 2019-02-13 Completed [facility] 00:00:00 [facility] Influenza High Dose 2019-02-13 Completed [facility] 00:00:00 [facility] Influenza High Dose 2019-02-13 Completed [facility] 00:00:00 [facility] Influenza High Dose 2019-02-13 Completed [facility] 00:00:00 [facility] Influenza High Dose 2019-02-13 Completed [facility] 00:00:00 [facility] Influenza High Dose 2019-02-13 Completed [facility] 00:00:00 [facility] Influenza High Dose 2019-02-13 Completed [facility] 00:00:00 [facility] Influenza High Dose 2019-02-13 Completed [facility] 00:00:00 [facility] Influenza High Dose 2019-02-13 Completed [facility] 00:00:00 [facility] Influenza High Dose 2019-02-13 Completed [facility] 00:00:00 [facility] Influenza High Dose 2019-02-13 Completed [facility] 00:00:00 [facility] Influenza High Dose 2019-02-13 Completed [facility] 00:00:00 [facility] Influenza High Dose 2019-02-13 Completed [facility] 00:00:00 [facility] Influenza High Dose 2019-02-13 Completed [facility] 00:00:00 [facility] Influenza High Dose 2019-02-13 Completed [facility] 00:00:00 [facility] Influenza High Dose 2019-02-13 Completed [facility] 00:00:00 [facility] Influenza High Dose 2019-02-13 Completed [facility] 00:00:00 [facility] Influenza High Dose 2019-02-13 Completed [facility] 00:00:00 [facility] Influenza High Dose 2019-02-13 Completed [facility] 00:00:00 [facility] Influenza High Dose 2019-02-13 Completed [facility] 00:00:00 [facility] Influenza High Dose 2019-02-13 Completed [facility] 00:00:00 [facility] Influenza High Dose 2019-02-13 Completed [facility] 00:00:00 [facility] Influenza High Dose 2019-02-13 Completed [facility] 00:00:00 [facility] Influenza High Dose 2019-02-13 Completed [facility] 00:00:00 [facility] Influenza High Dose 2019-02-13 Completed [facility] 00:00:00 [facility] Influenza High Dose 2019-02-13 Completed [facility] 00:00:00 [facility] Influenza High Dose 2019-02-13 Completed [facility] 00:00:00 [facility] Influenza High Dose 2019-02-13 Completed [facility] 00:00:00 [facility] Influenza High Dose 2019-02-13 Completed [facility] 00:00:00 [facility] Influenza High Dose 2019-02-13 Completed [facility] 00:00:00 [facility] Influenza High Dose 2019-02-13 Completed [facility] 00:00:00 [facility] Influenza High Dose 2019-02-13 Completed [facility] 00:00:00 [facility] Influenza High Dose 2019-02-13 Completed [facility] 00:00:00 [facility] Influenza High Dose 2019-02-13 Completed [facility] 00:00:00 [facility] Influenza High Dose 2019-02-13 Completed [facility] 00:00:00 [facility] Influenza High Dose 2019-02-13 Completed [facility] 00:00:00 [facility] Influenza High Dose 2019-02-13 Completed [facility] 00:00:00 [facility] Influenza High Dose 2019-02-13 Completed [facility] 00:00:00 [facility] Influenza High Dose 2019-02-13 Completed [facility] 00:00:00 [facility] Influenza High Dose 2019-02-13 Completed [facility] 00:00:00 [facility] Influenza High Dose 2019-02-13 Completed [facility] 00:00:00 [facility] Influenza High Dose 2019-02-13 Completed [facility] 00:00:00 [facility] Influenza High Dose 2019-02-13 Completed [facility] 00:00:00 [facility] Influenza High Dose 2019-02-13 Completed [facility] 00:00:00 [facility] Influenza High Dose 2019-02-13 Completed [facility] 00:00:00 [facility] Influenza High Dose 2019-02-13 Completed [facility] 00:00:00 [facility] Influenza High Dose 2019-02-13 Completed [facility] 00:00:00 [facility] Influenza High Dose 2019-02-13 Completed [facility] 00:00:00 [facility] Influenza High Dose 2019-02-13 Completed [facility] 00:00:00 [facility] Influenza High Dose 2019-02-13 Completed [facility] 00:00:00 [facility] Influenza High Dose 2019-02-13 Completed [facility] 00:00:00 [facility] Influenza High Dose 2019-02-13 Completed [facility] 00:00:00 [facility] Influenza High Dose 2019-02-13 Completed [facility] 00:00:00 [facility] Influenza High Dose 2019-02-13 Completed [facility] 00:00:00 [facility] Influenza High Dose 2019-02-13 Completed [facility] 00:00:00 [facility] Influenza High Dose 2019-02-13 Completed [facility] 00:00:00 [facility] Influenza High Dose 2019-02-13 Completed [facility] 00:00:00 [facility] Influenza High Dose 2019-02-13 Completed [facility] 00:00:00 [facility] Influenza High Dose 2019-02-13 Completed [facility] 00:00:00 [facility] Influenza High Dose 2019-02-13 Completed [facility] 00:00:00 [facility] Influenza High Dose 2019-02-13 Completed [facility] 00:00:00 [facility] Influenza High Dose 2019-02-13 Completed [facility] 00:00:00 [facility] Influenza High Dose 2019-02-13 Completed [facility] 00:00:00 [facility] Influenza High Dose 2019-02-13 Completed [facility] 00:00:00 [facility] Influenza High Dose 2019-02-13 Completed [facility] 00:00:00 [facility] Influenza High Dose 2019-02-13 Completed [facility] 00:00:00 [facility] Influenza High Dose 2019-02-13 Completed [facility] 00:00:00 [facility] Influenza High Dose 2019-02-13 Completed [facility] 00:00:00 [facility] Influenza High Dose 2019-02-13 Completed [facility] 00:00:00 [facility] Influenza High Dose 2019-02-13 Completed [facility] 00:00:00 [facility] Influenza High Dose 2019-02-13 Completed [facility] 00:00:00 [facility] Influenza High Dose 2019-02-13 Completed [facility] 00:00:00 [facility] Influenza High Dose 2019-02-13 Completed [facility] 00:00:00 [facility] Influenza High Dose 2019-02-13 Completed [facility] 00:00:00 [facility] Influenza High Dose 2019-02-13 Completed [facility] 00:00:00 [facility] Influenza High Dose 2019-02-13 Completed [facility] 00:00:00 [facility] Influenza High Dose 2019-02-13 Completed [facility] 00:00:00 [facility] Influenza High Dose 2019-02-13 Completed [facility] 00:00:00 [facility] Influenza High Dose 2019-02-13 Completed [facility] 00:00:00 [facility] Influenza High Dose 2019-02-13 Completed [facility] 00:00:00 [facility] Influenza High Dose 2019-02-13 Completed [facility] 00:00:00 [facility] Influenza High Dose 2019-02-13 Completed [facility] 00:00:00 [facility] Influenza High Dose 2019-02-13 Completed [facility] 00:00:00 [facility] Influenza High Dose 2019-02-13 Completed [facility] 00:00:00 [facility] Influenza High Dose 2019-02-13 Completed [facility] 00:00:00 [facility] Influenza High Dose 2019-02-13 Completed [facility] 00:00:00 [facility] Influenza High Dose 2019-02-13 Completed [facility] 00:00:00 [facility] Influenza High Dose 2019-02-13 Completed [facility] 00:00:00 [facility] TDAP 2017-11-10 Completed [facility] 00:00:00 [facility] TDAP 2017-11-10 Completed [facility] 00:00:00 [facility] TDAP 2017-11-10 Completed [facility] 00[facility]00:00 [facility] TDAP 2017-11-10 Completed [facility] 00:00:00 [facility] TDAP 2017-11-10 Completed [facility] 00:00:00 [facility] TDAP 2017-11-10 Completed [facility] 00:00:00 [facility] TDAP 2017-11-10 Completed [facility] 00:00:00 [facility] TDAP 2017-11-10 Completed [facility] 00:00:00 [facility] TDAP 2017-11-10 Completed [facility] 00:00:00 [facility] TDAP 2017-11-10 Completed [facility] 00:00:00 [facility] TDAP 2017-11-10 Completed [facility] 00:00:00 [facility] TDAP 2017-11-10 Completed [facility] 00[facility]00:00 [facility] TDAP 2017-11-10 Completed [facility] 00:00:00 [facility] TDAP 2017-11-10 Completed [facility] 00:00:00 [facility] TDAP 2017-11-10 Completed [facility] 00:00:00 [facility] TDAP 2017-11-10 Completed [facility] 00:00:00 [facility] TDAP 2017-11-10 Completed [facility] 00[facility]00:00 [facility] TDAP 2017-11-10 Completed [facility] 00:00:00 [facility] TDAP 2017-11-10 Completed [facility] 00:00:00 [facility] TDAP 2017-11-10 Completed [facility] 00:00:00 [facility] TDAP 2017-11-10 Completed [facility] 00:00:00 [facility] TDAP 2017-11-10 Completed [facility] 00:00:00 [facility] TDAP 2017-11-10 Completed [facility] 00:00:00 [facility] TDAP 2017-11-10 Completed [facility] 00:00:00 [facility] TDAP 2017-11-10 Completed [facility] 00:00:00 [facility] TDAP 2017-11-10 Completed [facility] 00:00:00 [facility] TDAP 2017-11-10 Completed [facility] 00:00:00 [facility] TDAP 2017-11-10 Completed [facility] 00:00:00 [facility] TDAP 2017-11-10 Completed [facility] 00:00:00 [facility] TDAP 2017-11-10 Completed [facility] 00:00:00 [facility] TDAP 2017-11-10 Completed [facility] 00:00:00 [facility] TDAP 2017-11-10 Completed [facility] 00:00:00 [facility] TDAP 2017-11-10 Completed [facility] 00:00:00 [facility] TDAP 2017-11-10 Completed [facility] 00:00:00 [facility] TDAP 2017-11-10 Completed [facility] 00:00:00 [facility] TDAP 2017-11-10 Completed [facility] 00:00:00 [facility] TDAP 2017-11-10 Completed [facility] 00:00:00 [facility] TDAP 2017-11-10 Completed [facility] 00:00:00 [facility] TDAP 2017-11-10 Completed [facility] 00:00:00 [facility] TDAP 2017-11-10 Completed [facility] 00:00:00 [facility] TDAP 2017-11-10 Completed [facility] 00:00:00 [facility] TDAP 2017-11-10 Completed [facility] 00:00:00 [facility] TDAP 2017-11-10 Completed [facility] 00:00:00 [facility] TDAP 2017-11-10 Completed [facility] 00:00:00 [facility] TDAP 2017-11-10 Completed [facility] 00:00:00 [facility] TDAP 2017-11-10 Completed [facility] 00:00:00 [facility] TDAP 2017-11-10 Completed [facility] 00:00:00 [facility] TDAP 2017-11-10 Completed [facility] 00:00:00 [facility] TDAP 2017-11-10 Completed [facility] 00:00:00 [facility] TDAP 2017-11-10 Completed [facility] 00:00:00 [facility] TDAP 2017-11-10 Completed [facility] 00:00:00 [facility] TDAP 2017-11-10 Completed [facility] 00:00:00 [facility] TDAP 2017-11-10 Completed [facility] 00:00:00 [facility] TDAP 2017-11-10 Completed [facility] 00:00:00 [facility] TDAP 2017-11-10 Completed [facility] 00:00:00 [facility] TDAP 2017-11-10 Completed [facility] 00:00:00 [facility] TDAP 2017-11-10 Completed [facility] 00:00:00 [facility] TDAP 2017-11-10 Completed [facility] 00:00:00 [facility] TDAP 2017-11-10 Completed [facility] 00[facility]00:00 [facility] TDAP 2017-11-10 Completed [facility] 00:00:00 [facility] TDAP 2017-11-10 Completed [facility] 00:00:00 [facility] TDAP 2017-11-10 Completed [facility] 00:00:00 [facility] TDAP 2017-11-10 Completed [facility] 00:00:00 [facility] TDAP 2017-11-10 Completed [facility] 00:00:00 [facility] TDAP 2017-11-10 Completed [facility] 00:00:00 [facility] TDAP 2017-11-10 Completed [facility] 00:00:00 [facility] TDAP 2017-11-10 Completed [facility] 00:00:00 [facility] TDAP 2017-11-10 Completed [facility] 00:00:00 [facility] TDAP 2017-11-10 Completed [facility] 00:00:00 [facility] TDAP 2017-11-10 Completed [facility] 00:00:00 [facility] TDAP 2017-11-10 Completed [facility] 00:00:00 [facility] TDAP 2017-11-10 Completed [facility] 00:00:00 [facility] TDAP 2017-11-10 Completed [facility] 00:00:00 [facility] TDAP 2017-11-10 Completed [facility] 00:00:00 [facility] TDAP 2017-11-10 Completed [facility] 00:00:00 [facility] TDAP 2017-11-10 Completed [facility] 00:00:00 [facility] TDAP 2017-11-10 Completed [facility] 00:00:00 [facility] TDAP 2017-11-10 Completed [facility] 00:00:00 [facility] TDAP 2017-11-10 Completed [facility] 00:00:00 [facility] TDAP 2017-11-10 Completed [facility] 00:00:00 [facility] TDAP 2017-11-10 Completed [facility] 00:00:00 [facility] TDAP 2017-11-10 Completed [facility] 00:00:00 [facility] TDAP 2017-11-10 Completed [facility] 00:00:00 [facility] TDAP 2017-11-10 Completed [facility] 00:00:00 [facility] TDAP 2017-11-10 Completed [facility] 00:00:00 [facility] TDAP 2017-11-10 Completed [facility] 00:00:00 [facility] TDAP 2017-11-10 Completed [facility] 00:00:00 [facility] TDAP 2017-11-10 Completed [facility] 00:00:00 [facility] TDAP 2017-11-10 Completed [facility] 00:00:00 [facility] TDAP 2017-11-10 Completed [facility] 00:00:00 [facility] TDAP 2017-11-10 Completed [facility] 00:00:00 [facility] TDAP 2017-11-10 Completed [facility] 00:00:00 [facility] TDAP 2017-11-10 Completed [facility] 00:00:00 [facility] TDAP 2017-11-10 Completed [facility] 00:00:00 [facility] TDAP 2017-11-10 Completed [facility] 00:00:00 [facility] TDAP 2017-11-10 Completed [facility] 00:00:00 [facility] TDAP 2017-11-10 Completed [facility] 00:00:00 [facility] TDAP 2017-11-10 Completed [facility] 00:00:00 [facility] TDAP 2017-11-10 Completed [facility] 00:00:00 [facility] TDAP 2017-11-10 Completed [facility] 00:00:00 [facility] TDAP 2017-11-10 Completed [facility] 00:00:00 [facility] Pneumococcal 2017-06-09 Completed University o f [...] Dose 2016-11-14 Completed Unive rsity of 00:00:00 [facility] Influenza High Dose 2016-11-14 Completed Unive rsity of 00:00:00 [facility] Influenza High Dose 2016-11-14 Completed Unive rsity of 00:00:00 [facility] Influenza High Dose 2016-11-14 Completed Unive rsity of 00:00:00 [facility] Influenza High Dose 2016-11-14 Completed Unive rsity of 00:00:00 [facility] Influenza High Dose 2016-11-14 Completed Unive rsity of 00:00:00 [facility] Influenza High Dose 2016-11-14 Completed Unive rsity of 00:00:00 [facility] Influenza High Dose 2016-11-14 Completed Unive rsity of 00:00:00 [facility] Influenza High Dose 2016-11-14 Completed Unive rsity of 00:00:00 [facility] Influenza High Dose 2016-11-14 Completed Unive rsity of 00:00:00 [facility] Influenza High Dose 2016-11-14 Completed Unive rsity of 00:00:00 [facility] Influenza High Dose 2016-11-14 Completed Unive rsity of 00:00:00 [facility] Influenza High Dose 2016-11-14 Completed Unive rsity of 00:00:00 [facility] Influenza High Dose 2016-11-14 Completed Unive rsity of 00:00:00 [facility] Influenza High Dose 2016-11-14 Completed Unive rsity of 00:00:00 [facility] Influenza High Dose 2016-11-14 Completed Unive rsity of 00:00:00 [facility] Influenza High Dose 2016-11-14 Completed Unive rsity of 00:00:00 [facility] Influenza High Dose 2016-11-14 Completed Unive rsity of 00:00:00 [facility] Influenza High Dose 2016-11-14 Completed Unive rsity of 00:00:00 [facility] Influenza High Dose 2016-11-14 Completed Unive rsity of 00:00:00 [facility] Influenza High Dose 2016-11-14 Completed Unive rsity of 00:00:00 [facility] Influenza High Dose 2016-11-14 Completed Unive rsity of 00:00:00 [facility] Influenza High Dose 2016-11-14 Completed Unive rsity of 00:00:00 [facility] Influenza High Dose 2016-11-14 Completed Unive rsity of 00:00:00 [facility] Influenza High Dose 2016-11-14 Completed Unive rsity of 00:00:00 [facility] Influenza High Dose 2016-11-14 Completed Unive rsity of 00:00:00 [facility] Influenza High Dose 2016-11-14 Completed Unive rsity of 00:00:00 [facility] Influenza High Dose 2016-11-14 Completed Unive rsity of 00:00:00 [facility] Influenza High Dose 2016-11-14 Completed Unive rsity of 00:00:00 [facility] Influenza High Dose 2016-11-14 Completed Unive rsity of 00:00:00 [facility] Influenza High Dose 2016-11-14 Completed Unive rsity of 00:00:00 [facility] Influenza High Dose 2016-11-14 Completed Unive rsity of 00:00:00 [facility] Influenza High Dose 2016-11-14 Completed Unive rsity of 00:00:00 [facility] Influenza High Dose 2016-11-14 Completed Unive rsity of 00:00:00 [facility] Influenza High Dose 2016-11-14 Completed Unive rsity of 00:00:00 [facility] Influenza High Dose 2016-11-14 Completed Unive rsity of 00:00:00 [facility] Influenza High Dose 2016-11-14 Completed Unive rsity of 00:00:00 [facility] Influenza High Dose 2016-11-14 Completed Unive rsity of 00:00:00 [facility] Influenza High Dose 2016-11-14 Completed Unive rsity of 00:00:00 [facility] Influenza High Dose 2016-11-14 Completed Unive rsity of 00:00:00 [facility] Influenza High Dose 2016-11-14 Completed Unive rsity of 00:00:00 [facility] Influenza High Dose 2016-11-14 Completed Unive rsity of 00:00:00 [facility] Influenza High Dose 2016-11-14 Completed Unive rsity of 00:00:00 [facility] Influenza High Dose 2016-11-14 Completed [facility]ive rsity of 00:00:00 [facility] Influenza High Dose 2016-11-14 Completed Unive rsity of 00:00:00 [facility] Influenza High Dose 2016-11-14 Completed Unive rsity of 00:00:00 [facility] Influenza High Dose 2016-11-14 Completed Unive rsity of 00:00:00 [facility] Influenza High Dose 2016-11-14 Completed Unive rsity of 00:00:00 [facility] Influenza High Dose 2016-11-14 Completed Unive rsity of 00:00:00 [facility] Influenza High Dose 2016-11-14 Completed Unive rsity of 00:00:00 [facility] Influenza High Dose 2016-11-14 Completed Unive rsity of 00:00:00 [facility] Influenza High Dose 2016-11-14 Completed Unive rsity of 00:00:00 [facility] Influenza High Dose 2016-11-14 Completed Unive rsity of 00:00:00 [facility] Influenza High Dose 2016-11-14 Completed Unive rsity of 00:00:00 [facility] Influenza High Dose 2016-11-14 Completed Unive rsity of 00:00:00 [facility] Influenza High Dose 2016-11-14 Completed Unive rsity of 00:00:00 [facility] Influenza High Dose 2016-11-14 Completed Unive rsity of 00:00:00 [facility] Influenza High Dose 2016-11-14 Completed Unive rsity of 00:00:00 [facility] Influenza High Dose 2016-11-14 Completed Unive rsity of 00:00:00 [facility] Influenza High Dose 2016-11-14 Completed Unive rsity of 00:00:00 [facility] Influenza High Dose 2016-11-14 Completed [facility]ive rsity of 00:00:00 [facility] Influenza High Dose 2016-11-14 Completed Unive rsity of 00:00:00 [facility] Influenza High Dose 2016-11-14 Completed Unive rsity of 00:00:00 [facility] Influenza High Dose 2016-11-14 Completed [facility]ive rsity of 00:00:00 [facility] Influenza High Dose 2016-11-14 Completed [facility]ive rsity of 00:00:00 [facility] Influenza High Dose 2016-11-14 Completed [facility]ive rsity of 00:00:00 [facility] Influenza High Dose 2016-11-14 Completed [facility]ive rsity of 00:00:00 [facility] Influenza High Dose 2016-11-14 Completed [facility]ive rsity of 00:00:00 [facility] Influenza High Dose 2016-11-14 Completed Unive rsity of 00:00:00 [facility] Influenza High Dose 2016-11-14 Completed Unive rsity of 00:00:00 [facility] Influenza High Dose 2016-11-14 Completed [facility]ive rsity of 00:00:00 [facility] Influenza High Dose 2016-11-14 Completed Unive rsity of 00:00:00 [facility] Influenza High Dose 2016-11-14 Completed Unive rsity of 00:00:00 [facility] Influenza High Dose 2016-11-14 Completed [facility]ive rsity of 00:00:00 [facility] Influenza High Dose 2016-11-14 Completed Unive rsity of 00:00:00 [facility] Influenza High Dose 2016-11-14 Completed Unive rsity of 00:00:00 [facility] Influenza High Dose 2016-11-14 Completed Unive rsity of 00:00:00 [facility] Influenza High Dose 2016-11-14 Completed [facility]ive rsity of 00:00:00 [facility] Influenza High Dose 2016-11-14 Completed [facility]ive rsity of 00:00:00 [facility] Influenza High Dose 2016-11-14 Completed [facility]ive rsity of 00:00:00 [facility] Influenza High Dose 2016-11-14 Completed [facility]ive rsity of 00:00:00 [facility] Influenza High Dose 2016-11-14 Completed [facility]ive rsity of 00:00:00 [facility] Influenza High Dose 2016-11-14 Completed Unive rsity of 00:00:00 [facility] Influenza High Dose 2016-11-14 Completed [facility]ive rsity of 00:00:00 [facility] Influenza High Dose 2016-11-14 Completed [facility]ive rsity of 00:00:00 [facility] Influenza High Dose 2016-11-14 Completed [facility]ive rsity of 00:00:00 [facility] Influenza High Dose 2016-11-14 Completed [facility]ive rsity of 00:00:00 [facility] Influenza High Dose 2016-11-14 Completed [facility]ive rsity of 00:00:00 [facility] Influenza High Dose 2016-11-14 Completed [facility]ive rsity of 00:00:00 [facility] Influenza High Dose 2016-11-14 Completed Unive rsity of 00:00:00 [facility] Influenza High Dose 2016-11-14 Completed Unive rsity of 00:00:00 [facility] Influenza High Dose 2016-11-14 Completed [facility]ive rsity of 00:00:00 [facility] Influenza High Dose 2016-11-14 Completed Unive rsity of 00:00:00 [facility] Influenza High Dose 2016-11-14 Completed Unive rsity of 00:00:00 [facility] Influenza High Dose 2016-11-14 Completed Unive rsity of 00:00:00 [facility] Influenza High Dose 2016-11-14 Completed Unive rsity of 00:00:00 [facility] Influenza High Dose 2016-11-14 Completed Unive rsity of 00:00:00 [facility] Influenza High Dose 2016-11-14 Completed Unive rsity of 00:00:00 [facility] Influenza High Dose 2016-11-14 Completed Unive rsity of 00:00:00 [facility] Influenza High Dose 2016-11-14 Completed Unive rsity of 00:00:00 [facility] Influenza High Dose 2016-11-14 Completed Unive rsity of 00:00:00 [facility] Vital Signs Vital Name Observation Time Observation Value Comments Source HEIGHT 2019-07-08 00:00:00 147.3 cm WEIGHT 2019-07-08 00:00:00 57.743 kg Systolic blood 2022-08-09 18:25:00 125 mm[Hg] [facility]iver [facility] of pressure [facility] Diastolic blood 2022-08-09 18:25:00 76 mm[Hg] [facility]ive rs[facility] of pressure [facility] Heart rate 2022-08-09 18:25:00 62 /min [facility] Respiratory rate 2022-08-09 18:25:00 19 /min Univ ers[facility] of [facility] Body height 2022-08-09 18:25:00 160 cm [facility] Body weight 2022-08-09 18:25:00 62.687 kg [facility] BMI 2022-08-09 18:25:00 24.48 kg/m2 [facility] Oxygen saturation in 2022-08-09 18:25:00 96 /min [facility] Arterial blood by [facility] Pulse oxim[facility] Systolic blood 2022-08-09 15:15:00 138 mm[Hg] [facility] of pressure [facility] Diastolic blood 2022-08-09 15:15:00 71 mm[Hg] [facility]ive [facility] of pressure [facility] Heart rate 2022-08-09 15:15:00 93 /min [facility] Body height 2022-08-09 15:15:00 160 cm [facility] Body weight 2022-08-09 15:15:00 62.642 kg [facility] BMI 2022-08-09 15:15:00 24.46 kg/m2 [facility] Oxygen saturation in 2022-08-09 15:15:00 96 /min [facility] Arterial blood by [facility] Systolic blood 2022-07-12 20:34:00 117 mm[Hg] [facility] pressure [facility] Diastolic blood 2022-07-12 20:34:00 54 mm[Hg] [facility] pressure [facility] Heart rate 2022-07-12 20:34:00 87 /min [facility] Body temperature 2022-07-12 20:34:00 36.56 Monique [facility] Respiratory rate 2022-07-12 20:34:00 17 /min [facility] Body weight 2022-07-12 20:34:00 63.957 kg [facility] BMI 2022-07-12 20:34:00 24.51 kg/m2 [facility] Oxygen saturation in 2022-07-12 20:34:00 96 /min [facility] Arterial blood by [facility] Systolic blood 2022-06-28 15:18:00 130 mm[Hg] [facility] pressure [facility] Diastolic blood 2022-06-28 15:18:00 55 mm[Hg] [facility] pressure [facility] Heart rate 2022-06-28 14:36:00 75 /min [facility] Respiratory rate 2022-06-28 14:36:00 20 /min [facility] Body height 2022-06-28 14:36:00 161.5 cm [facility] Body weight 2022-06-28 14:36:00 65 kg [facility] BMI 2022-06-28 14:36:00 24.91 kg/m2 [facility] Oxygen saturation in 2022-06-28 14:36:00 98 /min [facility] Arterial blood by [facility] Systolic blood 2022-06-09 18:20:00 126 mm[Hg] [facility] pressure [facility] Diastolic blood 2022-06-09 18:20:00 56 mm[Hg] [facility] pressure [facility] Heart rate 2022-06-09 18:20:00 83 /min [facility] Oxygen saturation in 2022-06-09 18:20:00 93 /min [facility] Arterial blood by [facility] Respiratory rate 2022-06-09 18:18:00 17 /min [facility] Body height 2022-06-09 18:18:00 157.5 cm [facility] Body weight 2022-06-09 18:18:00 64.411 kg [facility] BMI 2022-06-09 18:18:00 25.97 kg/m2 [facility] Systolic blood 2022-06-07 21:32:00 126 mm[Hg] [facility] pressure [facility] Diastolic blood 2022-06-07 21:32:00 71 mm[Hg] [facility] pressure [facility] Heart rate 2022-06-07 21:32:00 77 /min [facility] Body temperature 2022-06-07 21:32:00 37.28 Monique [facility] Respiratory rate 2022-06-07 21:32:00 16 /min [facility] Body height 2022-06-07 21:32:00 157.5 cm [facility] Body weight 2022-06-07 21:32:00 64.547 kg [facility] BMI 2022-06-07 21:32:00 26.03 kg/m2 [facility] Oxygen saturation in 2022-06-07 21:32:00 97 /min [facility] Arterial blood by [facility] WEIGHT 2022-06-01 05:00:00 64.638 kg HEIGHT 2022-05-28 08:00:00 157.5 cm WEIGHT 2022-05-28 08:00:00 64 kg WEIGHT 2022-06-01 05:00:00 64.638 kg HEIGHT 2022-05-28 08:00:00 157.5 cm WEIGHT 2022-05-28 08:00:00 64 kg Systolic blood 2022-05-25 19:34:00 128 mm[Hg] [facility] of pressure [facility] Diastolic blood 2022-05-25 19:34:00 54 mm[Hg] [facility]ive rs[facility] of pressure [facility] Heart rate 2022-05-25 19:34:00 77 /min [facility] Body height 2022-05-25 19:34:00 157.5 cm [facility] Body weight 2022-05-25 19:34:00 62.551 kg [facility] BMI 2022-05-25 19:34:00 25.22 kg/m2 [facility] Oxygen saturation in 2022-05-25 19:34:00 95 /min [facility] Arterial blood by [facility] Systolic blood 2022-05-17 19:02:00 166 mm[Hg] [facility] pressure [facility] Diastolic blood 2022-05-17 19:02:00 75 mm[Hg] [facility] pressure [facility] Heart rate 2022-05-17 19:02:00 104 /min [facility] Body temperature 2022-05-17 19:02:00 36.78 Monique [facility] Respiratory rate 2022-05-17 19:02:00 18 /min [facility] of [facility] Body height 2022-05-17 19:02:00 144.8 cm [facility] Body weight 2022-05-17 19:02:00 64.955 kg [facility] BMI 2022-05-17 19:02:00 30.99 kg/m2 [facility] Oxygen saturation in 2022-05-17 19:02:00 98 /min [facility] Arterial blood by [facility] Systolic blood 2022-04-08 19:24:00 134 mm[Hg] [facility] pressure [facility] Diastolic blood 2022-04-08 19:24:00 73 mm[Hg] [facility] pressure [facility] Heart rate 2022-04-08 19:24:00 73 /min [facility] Body height 2022-04-08 19:24:00 157.5 cm [facility] Body weight 2022-04-08 19:24:00 64.864 kg [facility] BMI 2022-04-08 19:24:00 26.16 kg/m2 [facility] Systolic blood 2022-04-11 15:24:00 136 mm[Hg] [facility] Diastolic blood 2022-04-11 15:24:00 76 mm[Hg] [facility] pressure [facility] Heart rate 2022-04-11 15:24:00 83 /min [facility] Body height 2022-04-11 15:24:00 157.5 cm [facility] Body weight 2022-04-11 15:24:00 63.504 kg [facility] BMI 2022-04-11 15:24:00 25.61 kg/m2 [facility] Oxygen saturation in 2022-04-11 15:24:00 97 /min [facility] Arterial blood by [facility] Systolic blood 2022-03-11 20:35:00 136 mm[Hg] [facility] pressure [facility] Diastolic blood 2022-03-11 20:35:00 76 mm[Hg] [facility] pressure [facility] Heart rate 2022-03-11 20:33:00 83 /min [facility] Body temperature 2022-03-11 20:33:00 37.11 Monique [facility] Body height 2022-03-11 20:33:00 157.5 cm [facility] Body weight 2022-03-11 20:33:00 63.504 kg [facility] BMI 2022-03-11 20:33:00 25.61 kg/m2 [facility] Oxygen saturation in 2022-03-11 20:33:00 97 /min [facility] Arterial blood by [facility] Systolic blood 2022-03-11 14:27:00 145 mm[Hg] [facility] pressure [facility] Diastolic blood 2022-03-11 14:27:00 68 mm[Hg] [facility] pressure [facility] Heart rate 2022-03-11 14:26:00 78 /min [facility] Body height 2022-03-11 14:26:00 157.5 cm [facility] Body weight 2022-03-11 14:26:00 61.236 kg [facility] BMI 2022-03-11 14:26:00 24.69 kg/m2 [facility] Oxygen saturation in 2022-03-11 14:26:00 99 /min [facility] Arterial blood by [facility] Systolic blood 2022-02-25 23:37:00 131 mm[Hg] [facility] pressure [facility] Diastolic blood 2022-02-25 23:37:00 85 mm[Hg] [facility] pressure [facility] Heart rate 2022-02-25 23:37:00 70 /min [facility] Body temperature 2022-02-25 23:37:00 36.83 Monique [facility] Respiratory rate 2022-02-25 23:37:00 18 /min [facility] Body height 2022-02-25 23:37:00 157.5 cm [facility] Body weight 2022-02-25 23:37:00 58.968 kg [facility] BMI 2022-02-25 23:37:00 23.78 kg/m2 [facility] Oxygen saturation in 2022-02-25 23:37:00 99 /min [facility] Systolic blood 2022-01-21 21:34:00 133 mm[Hg] [facility] of pressure [facility] Diastolic blood 2022-01-21 21:34:00 75 mm[Hg] [facility] pressure [facility] Heart rate 2022-01-21 21:34:00 80 /min [facility] Body temperature 2022-01-21 21:34:00 36.5 Monique [facility] Body height 2022-01-21 21:34:00 144.8 cm [facility] Body weight 2022-01-21 21:34:00 62.596 kg [facility] BMI 2022-01-21 21:34:00 29.86 kg/m2 [facility] Oxygen saturation in 2022-01-21 21:34:00 96 /min [facility] Arterial blood by [facility] Systolic blood 2021-12-24 20:33:00 135 mm[Hg] [facility] pressure [facility] Diastolic blood 2021-12-24 20:33:00 65 mm[Hg] [facility] pressure [facility] Heart rate 2021-12-24 20:33:00 73 /min [facility] Body temperature 2021-12-24 20:33:00 36.56 Monique [facility] Body height 2021-12-24 20:33:00 144.8 cm [facility] Body weight 2021-12-24 20:33:00 62.596 kg [facility] BMI 2021-12-24 20:33:00 29.86 kg/m2 [facility] Oxygen saturation in 2021-12-24 20:33:00 96 /min [facility] Arterial blood by [facility] Systolic blood 2021-12-03 18:46:00 148 mm[Hg] [facility] Diastolic blood 2021-12-03 18:46:00 70 mm[Hg] [facility] of pressure [facility] Heart rate 2021-12-03 18:45:00 97 /min [facility] Body temperature 2021-12-03 18:45:00 37.33 Monique [facility] Body height 2021-12-03 18:45:00 144.8 cm [facility] Body weight 2021-12-03 18:45:00 62.143 kg [facility] BMI 2021-12-03 18:45:00 29.65 kg/m2 [facility] Oxygen saturation in 2021-12-03 18:45:00 96 /min [facility] Arterial blood by [facility] Systolic blood 2021-11-26 20:46:00 158 mm[Hg] [facility] pressure [facility] Diastolic blood 2021-11-26 20:46:00 72 mm[Hg] [facility] pressure [facility] Heart rate 2021-11-26 20:46:00 98 /min [facility] Body height 2021-11-26 20:46:00 160 cm [facility] Body weight 2021-11-26 20:46:00 61.689 kg [facility] BMI 2021-11-26 20:46:00 24.09 kg/m2 [facility] Systolic blood 2021-11-02 18:10:00 152 mm[Hg] [facility] Diastolic blood 2021-11-02 18:10:00 73 mm[Hg] [facility] Heart rate 2021-11-02 18:10:00 83 /min [facility] Body height 2021-11-02 18:10:00 160 cm [facility] Body weight 2021-11-02 18:10:00 61.689 kg [facility] BMI 2021-11-02 18:10:00 24.09 kg/m2 [facility] Oxygen saturation in 2021-11-02 18:10:00 95 /min [facility] Arterial blood by [facility] Pulse oximetry Branch Systolic blood 2021-10-25 20:11:00 138 mm[Hg] [facility] Diastolic blood 2021-10-25 20:11:00 64 mm[Hg] [facility] Heart rate 2021-10-25 20:11:00 64 /min [facility] Body temperature 2021-10-25 20:11:00 36.5 Monique [facility] Body height 2021-10-25 20:11:00 160 cm [facility] Body weight 2021-10-25 20:11:00 61.689 kg [facility] BMI 2021-10-25 20:11:00 24.09 kg/m2 [facility] Oxygen saturation in 2021-10-25 20:11:00 96 /min [facility] Arterial blood by [facility] angelica Pulse oximetry Branch Systolic blood 2021-07-09 21:36:00 132 mm[Hg] Univer sity of pressure [facility] Diastolic blood 2021-07-09 21:36:00 65 mm[Hg] Unive rsity of pressure [facility] Body temperature 2021-07-09 21:36:00 36.33 Monique Univ ers[facility] of [facility] Heart rate 2021-07-09 21:10:00 73 /min [facility] Body height 2021-07-09 21:10:00 142.2 cm [facility] Body weight 2021-07-09 21:10:00 61.598 kg [facility] BMI 2021-07-09 21:10:00 30.45 kg/m2 [facility] Oxygen saturation in 2021-07-09 21:10:00 96 /min [facility] HEIGHT 2019-07-08 00:00:00 147.3 cm WEIGHT 2019-07-08 00:00:00 57.743 kg pulse rate 2019-07-01 08:14:01 80 /min [facility] blood pressure, 2019-07-01 08:14:01 71 mm[Hg] [facility] blood pressure, 2019-07-01 08:14:01 171 mm[Hg] [facility] systolic Health pulse rate 2019-06-25 09:35:00 76 /min [facility] blood pressure, 2019-06-25 09:35:00 77 mm[Hg] [facility] diastolic Health blood pressure, 2019-06-25 09:35:00 153 mm[Hg] [facility] Procedures Procedure Date / Time Performing Clinician Source Performed EXTERNAL PROVIDER RECORDS 2022-07-21 05:01:00 Doctor López [facility] [place] [facility] - OTHER 2022-06-28 05:01:00 Alejo Webb [facility] Name Medical [facility] - [facility] 2022-06-24 05:01:00 [facility] [place] [facility] [place] NM MYOCARDIUM PERFUSION 2022-06-23 16:20:00 Lo, Sendil [facility] Medical Branch NUCLEAR STRESS TEST 2022-06-23 16:20:00 Lo, Sendil [facility] CARDIOLOGY (DO NOT SCHED) Medica l Branch NM MYOCARDIUM PERFUSION 2022-06-23 16:20:00 Lo, Sendil [facility] Medical Branch NUCLEAR STRESS TEST 2022-06-23 16:20:00 Lo, Sendil [facility] CARDIOLOGY (DO NOT SCHED) Medica l Branch NM MYOCARDIUM PERFUSION 2022-06-23 16:20:00 Lo, Sendil [facility] Medical Branch NUCLEAR STRESS TEST 2022-06-23 16:20:00 Lo, Sendil [facility] CARDIOLOGY (DO NOT SCHED) Medica l Branch NM MYOCARDIUM PERFUSION 2022-06-23 16:20:00 Lo, Sendil [facility] Branch NUCLEAR STRESS TEST 2022-06-23 16:20:00 Lo, Sendil [facility] CARDIOLOGY (DO NOT SCHED) Medica l Branch [facility] - OTHER 2022-06-21 05:01:00 Doctor [facility] [place] [facility] [place] BASIC METABOLIC PANEL 2022-06-11 13:49:00 Lo, Sendil [facility] (NA, K, CL, CO2, GLUCOSE, Medica l Branch BUN, CREATININE, CA) N-TERMINAL PRO-BNP 2022-06-11 13:49:00 Lo Sendil [facility] COMP. METABOLIC PANEL 2022-06-10 14:37:00 Ceci Lo [facility] ([id number]) [facility] N-TERMINAL PRO-BNP 2022-06-10 14:37:00 Ceci Lo [facility] HB ECG ROUTINE & RHYTHM 2022-05-25 19:30:49 Ceci Lo [facility] PNEUMOCOCCAL 20 CONJUGATE 2022-05-17 19:39:37 Angela Cunningham [facility] (PREVNAR 20) VACCINE Medical [facility] ASSIGNMENT OF BENEFITS 2022-05-17 18:46:13 Doctor Rene, [facility] EXTERNAL PROVIDER RECORDS 2022-04-12 06:01:00 Doctor Rene [facility] Name [facility] REFERRAL- 2022-04-03 06:01:00 Doctor Rene, [facility] REQUEST/RESPONSE [facility] CBC WITH DIFF 2022-03-11 21:42:00 Octavio [facility] URINE CULTURE 2022-03-11 21:42:00 Chary Donald [facility] REFERRAL- 2022-02-23 06:01:00 Doctor Dianaregine, [facility] REQUEST/RESPONSE [facility] EMERGENCY SERVICES 2021-12-31 06:01:00 Doctor Rene, [facility] AGREEMENTS AND [place] [place] AUTHORIZATIONS FLU 2021-12-24 21:05:18 Chary Donald [facility] VACC(),65+YR,0.5 Medica l Branch ML,IM,ADJUVANTED,QUAD(FLU AD) MR BRAIN WO CONTRAST 2021-11-19 15:41:00 Won Matt [facility] EXTERNAL PROVIDER RECORDS 2021-11-18 05:01:00 Doctor Rene [facility] Name Medical [place] EXTERNAL PROVIDER RECORDS 2021-11-01 05:01:00 Doctor Ortizregine [facility] Name Medical [place] AUTHORIZATION TO RELEASE 2021-10-25 05:01:00 Doctor López [facility] PHI TO [facility] [place] URINALYSIS 2021-09-03 13:22:00 Chary Donald [facility] LIPASE 2021-09-03 13:08:00 Chary Donald [facility] COMP. METABOLIC PANEL 2021-09-03 13:08:00 Chary Donald [facility] ([id number]) [facility] CBC WITH DIFF 2021-09-03 13:08:00 Chary Donald [facility] Plan of Care Planned Activity Planned Date Details Comments Source Future Scheduled 2027-11-11 DTAP/TDAP/TD VACCINES [facility] 00:[facility]00 (2 - Td or Tdap) [code Medic al Center = DTAP/TDAP/TD VACCINES (2 - Td or Tdap)] Future Scheduled 2027-11-11 DTAP/TDAP/TD VACCINES [facility] 00:00:00 (2 - Td or Tdap) [code Medic al Center = DTAP/TDAP/TD VACCINES (2 - Td or Tdap)] Future Scheduled 2027-11-11 DTAP/TDAP/TD VACCINES [facility] 00:00:00 (2 - Td or Tdap) [code Medic al Center = DTAP/TDAP/TD VACCINES (2 - Td or Tdap)] Future Scheduled 2027-11-11 DTAP/TDAP/TD VACCINES [facility] 00:00:00 (2 - Td or Tdap) [code Medic al Center = DTAP/TDAP/TD VACCINES (2 - Td or Tdap)] Future Scheduled 2027-11-11 DTAP/TDAP/TD VACCINES [facility] 00:00:00 (2 - Td or Tdap) [code Medic al Center = DTAP/TDAP/TD VACCINES (2 - Td or Tdap)] Future Scheduled 2027-11-11 DTAP/TDAP/TD VACCINES [facility] 00:00:00 (2 - Td or Tdap) [code Medic al Center = DTAP/TDAP/TD VACCINES (2 - Td or Tdap)] Future Scheduled 2027-11-11 DTAP/TDAP/TD VACCINES [facility] 00:00:00 (2 - Td or Tdap) [code Medic al Center = DTAP/TDAP/TD VACCINES (2 - Td or Tdap)] Future Scheduled 2027-11-11 DTAP/TDAP/TD VACCINES [facility] 00:00:00 (2 - Td or Tdap) [code Medic al Center = DTAP/TDAP/TD VACCINES (2 - Td or Tdap)] Future Scheduled 2027-11-11 DTAP/TDAP/TD VACCINES [facility] 00:00:00 (2 - Td or Tdap) [code Medic al Center = DTAP/TDAP/TD VACCINES (2 - Td or Tdap)] Future Scheduled 2027-11-11 DTAP/TDAP/TD [facility]ACCINES [facility] 00:00:00 (2 - Td or Tdap) [code Medic al Center = DTAP/TDAP/TD VACCINES (2 - Td or Tdap)] Future Scheduled 2022-10-[address] [facility] 00:00:00 (Season Ended) [code = Medic al Center INFLUENZA VACCINE (Season Ended)] Future Scheduled 2022-02-[address] [...] RISK Medical C enter SCREENING] Future Scheduled 2021-10-14 INFLUENZA VACCINE (#1) [facility]00 [code = INFLUENZA Medical Ce nter VACCINE (#1)] Future Scheduled 2021-10-14 INFLUENZA VACCINE (#1) [facility] 00:00:00 [code = INFLUENZA Medical Ce nter VACCINE (#1)] Future Scheduled 2021-10-14 INFLUENZA VACCINE (#1) [facility] 00:00:00 [code = INFLUENZA Medical Ce nter VACCINE (#1)] Future Scheduled 2021-10-14 INFLUENZA VACCINE (#1) [facility] 00:00:00 [code = INFLUENZA Medical Ce nter VACCINE (#1)] Future Scheduled 2021-10-14 INFLUENZA VACCINE (#1) [facility] 00:00:00 [code = INFLUENZA Medical Ce nter VACCINE (#1)] Future Scheduled 2021-10-14 INFLUENZA VACCINE (#1) [facility] 00:00:00 [code = INFLUENZA Medical Ce nter VACCINE (#1)] Future Scheduled 2021-10-14 INFLUENZA VACCINE (#1) [facility] 00:00:00 [code = INFLUENZA Medical Ce nter VACCINE (#1)] Future Scheduled 2021-10-14 INFLUENZA VACCINE (#1) [facility] 00:00:00 [code = INFLUENZA Medical Ce nter VACCINE (#1)] Future Scheduled 2021-02-[address] [...] RISK Medical C enter SCREENING] Future Scheduled 2020-10-14 INFLUENZA VACCINE (#1) [facility] 00:00:00 [code = INFLUENZA Medical Ce nter VACCINE (#1)] Future Scheduled 2020-07-[address] [facility] 00:[facility]:00 of 2) [code = SHINGLES Medic al Center VACCINES (1 of 2)] Future Scheduled 1986 SHINGLES VACCINES ([address] [facility] 00:00:00 of 2) [code = SHINGLES Medic al Center VACCINES (1 of 2)] Future Scheduled 1986 SHINGLES VACCINES ([address] [facility] 00:00:00 of 2) [code = SHINGLES Medic al Center VACCINES (1 of 2)] Future Scheduled 1986 SHINGLES VACCINES ([address] [facility] 00:00:00 of 2) [code = SHINGLES Medic al Center VACCINES (1 of 2)] Future Scheduled 1986 SHINGLES VACCINES ([address] [facility] 00:00:00 of 2) [code = SHINGLES Medic al Center VACCINES (1 of 2)] Future Scheduled 1986 SHINGLES VACCINES ([address] [facility] 00:00:00 of 2) [code = SHINGLES Medic al Center VACCINES (1 of 2)] Future Scheduled 1986 SHINGLES VACCINES ([address] [facility] 00:00:00 of 2) [code = SHINGLES Medic al Center VACCINES (1 of 2)] Future Scheduled 1986 SHINGLES VACCINES ([address] [facility] 00:00:00 of 2) [code = SHINGLES Medic al Center VACCINES (1 of 2)] Future Scheduled 1986 SHINGLES VACCINES ([address] [facility] 00:00:00 of 2) [code = SHINGLES Medic al Center VACCINES (1 of 2)] Future Scheduled 1986 SHINGLES VACCINES ([address] [facility] 00:00:00 of 2) [code = SHINGLES Medic al Center VACCINES (1 of 2)] Future Scheduled 1948 COVID-19 VACCINE (1) [facility] 00:00:00 [code = COVID-[address] VACCINE (1)] Future Scheduled 1936 COVID-19 VACCINE (#1) [facility] 00:00:00 [code = COVID-[address] VACCINE (#1)] Future Scheduled 1936 COVID-19 VACCINE (#1) [facility] 00:00:00 [code = COVID-[address] VACCINE (#1)] Future Scheduled 1936 COVID-19 VACCINE (#1) [facility] 00:00:00 [code = COVID-[address] VACCINE (#1)] Future Scheduled 1936 COVID-19 VACCINE (#1) [facility] 00:00:00 [code = COVID-[address] VACCINE (#1)] Future Scheduled 1936 COVID-19 VACCINE (#1) [facility] 00:00:00 [code = COVID-[address] VACCINE (#1)] Future Scheduled 1936 COVID-19 VACCINE (#1) [facility] 00:00:00 [code = COVID-[address] VACCINE (#1)] Future Scheduled 1936 COVID-19 VACCINE (#1) [facility] 00:00:00 [code = COVID-[address] VACCINE (#1)] Future Scheduled 1936 COVID-19 VACCINE (#1) [facility] 00:00:00 [code = COVID-[address] VACCINE (#1)] Future Scheduled 1936 COVID-19 VACCINE (#1) [facility] 00:00:00 [code = COVID-[address] VACCINE (#1)] Future Scheduled 1936 DXA SCAN [...] 00:00:00 SCAN] [facility] Encounters Start End Encounter Admission Attending Care Care Encounter Source Date/Time Date/Time Type Type Clinicians Facility Department ID 2020-11-17 Inpatient ER GUILLERMO, [facility] Urology [id number] SLE 14:52:09 LILIANA 2022-10-07 2022-10-07 Outpatient R WON MATT [facility] [id number] Univers 11:20:00 11:20:00 WON MATT [facility] 2022-09-22 2022-09-22 Outpatient R TERESITA [facility] [id number] Univers 15:00:00 15:00:[address] [facility] 2022-09-08 2022-09-08 Outpatient R OCTAVIO ANGELA [facility] [id number] Univers 10:00:00 10:00:[address] [facility] 2022-08-09 2022-08-09 Outpatient R TERESITA [facility] [id number] Univers [facility]22[facility]08[facility]09 [facility] [id number] Univers 13:00:00 14:10:05 Visit Ceci Valdez SECOR 350.1.13.10 [place] [id number] [facility] 059 [facility] 2022-08-09 2022-08-09 Office [facility] 1.2.840.114 [id number] Univers 10:00:00 11:36:08 Visit [facility] 350.1.13.10 ity of [place] 4.2.7.2.686 [place] as KRZYSZTOF?BLEA [id number] [address] OFFICE [facility] 2022-08-04 2022-08-04 Refill [facility] 1.2.840.114 [id number] Univers 00:00:00 00:00:00 Angela HEALTH 350.1.13.10 ity of [place] 4.2.7.2.686 [place] KRZYSZTOF?BLEA [id number] [address] OFFICE [facility] 2022-07-27 2022-07-27 Telephone [facility] [id number] Univers 00:00:00 00:00:00 Sendil [facility] 350.1.13.10 it[place] [id number] Ri dical NAL 059 [facility] 2022-07-21 2022-07-21 Orders Doctor LILLIANA 1.2.840.114 [id number] Univers 00:00:00 00:00:00 Only Unassigned, MACKENZIE 350.1.13.10 ity of [place] [facility] 4.2.7.2.686 [place]ilo as [id number] [address] 2022-07-18 2022-07-18 Refill [facility] 1.2.840.114 [id number] Univers 00:00:00 00:00:00 [facility] 350.1.13.10 ity of [place] 4.2.7.2.686 [place] KRZYSZTOF?BLEA [id number] [address] MEDICAL OFFICE [facility] 2022-07-13 2022-07-13 Patient [facility] 1.2.840.114 [id number] Univers 00:00:00 00:00:00 Secure Msg [facility] 350.1.13.10 ity of [place] 4.2.7.2.686 [place] KRZYSZTOF?BLEA [id number] [address] MEDICAL OFFICE [facility] 2022-07-12 2022-07-12 Outpatient R TERESITA [facility] [id number] Univers 14:00:00 16:32:11 SENDIL ity [facility] 2022-07-12 2022-07-12 Office [facility] 1.2.840.114 [id number] Univers 14:00:00 16:32:11 Visit Ceci ALBRECHT 350.1.13.10 [place] [id number] [address] 2022-07-12 2022-07-12 Telephone Teresita KYDELIA 1.2.038.783 [id number] Univers 00:00:00 00:00:00 Sendbekah ALBRECHT 350.1.13.10 [place] DAG[place] [id number] Ri salvatore PANTOJA 059 [facility] 2022-07-08 2022-07-08 Trade Facilitator Lab, Ang - [facility] 1.2.840.1 [id number] Univers 09:00:00 09:15:00 Visit [facility] 350.1.13.10 ity of [place] 4.2.7.2.686 [place] KRZYSZTOF?BLEA [id number] [facility] [address] [facility] OFFICE [facility] 2022-07-08 2022-07-08 Outpatient R NADINETASIA ZhangINE [facility] [id number] Univers 09:00:00 09:00:[address] [facility] 2022-07-08 2022-07-08 Refill [facility] 1.2.840.114 [id number] Univers 00:00:00 00:00:00 [facility] 350.1.13.10 ity of [place] 4.2.7.2.686 [place] KRZYSZTOF?BLEA [id number] [address] OFFICE [facility] 2022-07-01 2022-07-01 Outpatient R OCTAVIOANGELA [facility] [id number] Univers 11:20:00 11:20:[address] [facility] 2022-06-28 2022-06-28 Outpatient R TASIA CUNNINGHAMINE [facility] [id number] Univers 09:20:00 10:19:[address] [facility] 2022-06-28 2022-06-28 Office [facility] 1.2.840.114 [id number] Univers 09:20:00 10:19:27 Visit [facility] 350.1.13.10 ity of [place] 4.2.7.2.686 [place] as KRZYSZTOF?BLEA [id number] [address] OFFICE [facility] 2022-06-28 2022-06-28 Telephone [facility] 1.2.870.022 [id number] Univers 00:00:00 00:00:00 Angela HEALTH 350.1.13.10 [facility] 4.2.7.2.686 [place]ilo as KRZYSZTOF?BLEA [id number] Ri dical KNEY [address] [place] MEDICAL OFFICE BUILDING 2022-06-28 2022-06-28 Orders Doctor LILLIANA 1.2.840.114 [id number] Univers 00:00:00 00:00:00 Only Unassigned, MACKENZIE 350.1.13.10 ity of [place] [facility] 4.2.7.2.686 Kilo as [id number] [address] 2022-06-24 2022-06-24 [facility] 1.2.295.097 [id number] Univers 00:00:00 00:00:00 Ceci ALBRECHT 350.1.13.10 [facility] [place] [id number] Ri dical NAL 059 [facility] 2022-06-24 2022-06-24 Orders Doctor LILLIANA 1.2.840.114 [id number] Univers 00:00:00 00:00:00 Only Unassigned, MACKENZIE 350.1.13.10 ity of [place] [facility] 4.2.7.2.686 Kilo as [id number] [address] 2022-06-23 2022-06-23 [facility] 1.2.840.114 [id number] Univers 08:13:16 23:59:00 Encounter Ceci ALBRECHT 350.1.13.10 [facility] [place] [id number] [facility] [address] [place] 2022-06-23 2022-06-23 [facility] 1.2.840.114 [id number] Univers 08:12:54 08:12:54 Encounter Ceci ALBRECHT 350.1.13.10 [facility] 4[place] [id number] [facility] [address] [place] 2022-06-23 2022-06-23 [facility] 1.2.840.114 [id number] Univers 08:12:41 08:12:41 Encounter Ceci ALBRECHT 350.1.13.10 [facility] 4.2.7.2.[place] [id number] [facility] [address] [place] 2022-06-23 2022-06-23 Outpatient R [facility] [id number] Univers 08:12:25 08:11:00 SENDIL ity of [facility] 2022-06-23 2022-06-23 Hospital [facility] 1.2.840.114 [id number] Univers 08:00:00 08:11:00 Encounter Ceci ALBRECHT 350.1.13.10 [place] H[place]Y [id number] [facility] [address] [place] [address] 2022-06-21 2022-06-21 Outpatient R [facility] [id number] Univers 09:00:00 09:00:00 SENDIL ity of [facility] 2022-06-21 2022-06-21 Telephone [facility] 1.2.412.488 [id number] Univers 00:00:00 00:00:00 Ceci ALBRECHT 350.1.13.10 [place] [id number] Ri dical NAL 059 [facility] 2022-06-21 2022-06-21 Orders Doctor LILLIANA 1.2.840.114 [id number] Univers 00:00:00 00:00:00 Only Unassigned, MACKENZIE 350.1.13.10 ity of [place] [facility] 4.2.7.2.686 Kilo as [id number] [facility] [address] [place] 2022-06-20 2022-06-20 Trade Facilitator Abdiel, Adc Lab Main [facility] 1.2.8 40.114 [id number] Univers 07:45:00 08:00:00 Visit Ceci Lo 350.1.13. 10 [place] [id number] Ri dical NAL 353 [facility] 2022-06-20 2022-06-20 [facility] [id number] Univers 07:45:00 07:45:00 SENDIL ity of [facility] 2022-06-16 2022-06-16 [facility] 1.2.895.990 [id number] Univers 00:00:00 00:00:00 Sendil Courtney ALBRECHT 350.1.13.10 ity of [place] [id number] Ri dicco NAL [address] [place] [address] 2022-06-16 2022-06-16 [place] [facility] [id number] Univers 00:00:00 00:00:00 Sendil Courtney [place] 350.1.13.10 ity of [place] [id number] Ri dicco NAL [address] [place] [address] 2022-06-15 2022-06-15 [facility] 1.2.367.026 [id number] Univers 00:00:00 00:00:00 Sendbekah ALBRECHT 350.1.13.10 it[place] of [place] [id number] [address] 2022-06-13 2022-06-13 [facility] [id number] Univers 15:30:00 15:30:00 SENDIL ity [facility] 2022-06-13 2022-06-13 [place] [facility] 1.2.586.384 [id number] Univers 00:00:00 00:00:00 Sendil Courtney ALBRECHT 350.1.13.10 ity of [place] [id number] Ri dicco NAL [address] [place] [address] 2022-06-11 2022-06-11 Trade Facilitator Abdiel, Adc Lab Main [facility] 1.2.8 40.114 [id number] Univers 08:30:00 08:45:00 Visit Ceci Lo 350.1.13. 10 [place] of [place] [id number] Ri dical NAL 353 [facility] 2022-06-11 2022-06-11 Outpatient R TERESITA [facility] [id number] Univers 08:30:00 08:30:00 SENDIL ity [facility] 2022-06-10 2022-06-10 Trade Facilitator Abdiel, Kristy Lab Main [facility] 1.2.8 40.114 [id number] Univers 09:15:00 09:30:00 Visit Ceci Lo 350.1.13. 10 [place] [id number] [facility] 353 [facility] 2022-06-10 2022-06-10 [facility] [id number] Univers 09:15:00 09:15:00 SENDIL ity [facility] 2022-06-10 2022-06-10 [facility] 1.2.840.114 [id number] Univers 00:00:00 00:00:00 [facility] 350.1.13.10 ity of [place] 4.2.7.2.686 Kilo as KRZYSZTOF?BLEA [id number] Ri salvatore KNEY 0[address] [facility] OFFICE BUILDING 2022-06-10 2022-06-10 Telephone [facility] 1.2.183.200 [id number] Univers 00:00:00 00:00:00 Ceci ALBRECHT 350.1.13.10 ity [place] [phone] Ri dicco NAL 059 [facility] 2022-06-09 2022-06-09 Outpatient [facility] [id number] Univers 13:30:00 14:26:56 SENDIL ity [facility] 2022-06-09 2022-06-09 [facility] 1.2.840.114 [id number] Univers 13:30:00 14:26:56 Visit Ceci ALBRECHT 350.1.13.10 [facility] [place] [phone] Ri diccleopatra NAL 059 [facility] 2022-06-08 2022-06-08 Patient Jesus [facility] 1.2.840.114 [id number] Univers 00:00:00 00:00:00 [facility] 350.1.13.10 i ty of [place] 4.2.7.2.686 [place] KRZYSZTOF?BLEA [phone] Ri salvatore ESTRADA 044 [facility] OFFICE [facility] 2022-06-07 2022-06-07 Outpatient R ANGELA CUNNINGHAM [facility] [id number] Univers 16:20:00 17:24:14 ANGELA CUNNINGHAM [facility] 2022-06-07 2022-06-07 Office [facility] 1.2.840.114 [id number] Univers 16:20:00 17:24:14 Visit [facility] 350.1.13.10 ity of [place] 4.2.7.2.686 [place] KRZYSZTOF?BLEA [phone] Ri salvatore ESTRADA [address] [place] [address] OFFICE [facility] 2022-06-07 2022-06-07 Telephone [facility] 1.2.760.757 [id number] Univers 00:00:00 00:00:00 [facility] 350.1.13.10 ity of SECOR 4.2.7.2.686 Kilo as KRZYSZTOF?BLEA [phone] Ri salvatore ESTRADA [address] [place] [address] OFFICE [facility] 2022-06-02 2022-06-02 Outpatient ANGELA LIZ [facility] [id number] Univers 14:20:00 14:20:00 ANGELA C[facility] 2022-05-28 2022-06-01 [facility] 20 [id number] [facility] 07:43:00 15:42:00 STELLA 2022-06-01 2022-06-01 Outpatient Braulio LO [facility] [id number] Univers 15:30:00 15:30:00 SENDIL karina [facility] 2022-05-25 2022-05-25 Outpatient R TERESITA [facility] [id number] Univers 14:00:00 15:24:40 [facility] 2022-05-25 Office [facility] 1.2.840.114 [id number] Univers 14:00:00 15:24:40 Visit Ceci Valdez SECOR 350.1.13.10 ity of [place].2.7.2.[place] PROFESS[place] [phone] Ri dical NAL 059 [facility] 2022-05-17 2022-05-17 Outpatient R ANGELA CUNNINGHAM [facility] [id number] Univers 13:40:00 15:02:[address] [facility] 2022-05-17 2022-05-17 Office [facility] 1.2.840.114 [id number] Univers 13:40:00 15:02:27 Visit [facility] 350.1.13.10 ity of [place] 4.2.7.2.686 [place]ilo as KRZYSZTOF?BLEA [phone] [address] OFFICE [facility] 2022-05-17 2022-05-17 Orders Doctor LILLIANA 1.2.840.114 [id number] Univers 00:00:00 00:00:00 Only Unassigned, MACKENZIE 350.1.13.10 ity of [place] [facility] 4.2.7.2.686 Kilo as [phone] [address] 2022-04-23 2022-04-23 Refill [facility] 1.2.840.114 [id number] Univers 00:00:00 00:00:00 [facility] 350.1.13.10 ity of [place] 4.2.7.2.686 [place] KRZYSZTOF?BLEA [phone] Ri dic[address] OFFICE [facility] 2022-04-22 2022-04-22 Refshruthi CunninghamSOCORRO [facility] 1.2.840.114 [id number] Univers 00:00:00 00:00:00 [facility] 350.1.13.10 ity of [place] 4.2.7.2.686 Kilo as KRZYSZTOF?BLEA [phone] [facility] [address] MEDICAL OFFICE [facility] 2022-04-15 2022-04-15 Outpatient Braulio CUNNINGHAM [facility] [id number] Univers 09:20:00 09:20:[address] [facility] 2022-04-12 2022-04-12 Orders Doctor LILLIANA 1.2.840.114 [id number] Univers 00:00:00 00:00:00 Only Unassigned, MACKENZIE 350.1.13.10 ity of [place] [facility] 4.2.7.2.686 Kilo as [phone] [address] 2022-04-11 2022-04-11 Outpatient Braulio WON MATT [facility] [id number] Univers 09:00:00 09:00:[address] [facility] 2022-04-08 2022-04-08 Outpatient Braulio HAGERWON Dias [facility] [id number] Univers 13:40:00 14:51:[address] [facility] 2022-04-08 2022-04-08 Office Vernell [facility] 1.2.840.114 [id number] Univers 13:40:00 14:51:58 Visit [facility] 350.1.13.10 ity [facility] 4.2.7.2.686 Kilo as KRZYSZTOF?BLEA [phone] [address] OFFICE [facility] 2022-04-08 2022-04-08 Nurse Nurse, Thom-Db Neurology [facility] 1. 2.840.114 [id number] Univers 13:00:00 14:50:23 Visit Unknown, Attending HEALTH 350.1.13.10 ity of [facility] 4.2.7.2.686 Kilo as KRZYSZTOF?BLEA [phone] [address] OFFICE [facility] 2022-04-03 2022-04-03 Orders Doctor LILLIANA 1.2.840.114 [id number] Univers 00:00:00 00:00:00 Only Unassigned, MACKENZIE 350.1.13.10 ity of [place] [facility] 4.2.7.2.686 Kilo as [phone] [address] 2022-03-24 2022-03-24 Telephone [facility] 1.2.728.849 [id number] Univers 00:00:00 00:00:00 [facility] 350.1.13.10 ity of [place] 4.2.7.2.686 Kilo as KRZYSZTOF?BLEA [phone] Ri salvatore ESTRADA [address] MEDICAL OFFICE [facility] 2022-03-18 2022-03-18 Telephone [facility] 1.2.877.381 [id number] Univers 00:00:00 00:00:00 [facility] 350.1.13.10 ity of [place] 4.2.7.2.686 Kilo as KRZYZSTOF?BLEA [phone] Ri salvatore ESTRADA [address] [place] [address] OFFICE [facility] 2022-03-15 2022-03-15 Telephone [facility] 1.2.840.114 [id number] Univers 00:00:00 00:00:00 [facility] 350.1.13.10 ity of [place] 4.2.7.2.686 Kilo as KRZYSZTOF?BLEA [phone] Ri salvatore ESTRADA 0[address] [facility] OFFICE [facility] 2022-03-11 2022-03-11 Trade Facilitator Lab, Ang - Db [facility] 1.2.840.1 14 [id number] Univers 15:30:00 15:47:42 Visit [facility] 350.1.13.10 ity of [facility] 4.2.7.2.686 Kilo as KRZYSZTOF?BLEA [phone] Ri salvatore ESTRADA [address] [facility] OFFICE [facility] 2022-03-11 2022-03-11 Outpatient R [facility] [id number] Univers 13:40:00 15:35:06 [facility] 2022-03-11 2022-03-11 Office [facility] 1.2.840.114 [id number] Univers 13:40:00 15:35:06 Visit [facility] 350.1.13.10 ity of [facility] 4.2.7.2.686 Kilo as KRZYSZTOF?BLEA [phone] Ri salvatore ESTRADA 0[address] [facility] OFFICE [facility] 2022-03-11 2022-03-11 Office [facility] 1.2.840.114 [id number] Univers 08:00:00 09:15:25 Visit [facility] 350.1.13.10 it y of [place] 4.2.7.2.686 Kilo as KRZYSZTOF?BLEA [phone] [facility] [address] [facility] OFFICE [facility] 2022-03-04 2022-03-04 Outpatient R NIRMALA [facility] [id number] Univers 10:30:00 10:30:00 ARASELI karen [facility] 2022-02-25 2022-02-25 Urgent EbmartaJasper [facility] 1.2.840.114 [id number] Univers 17:40:00 18:00:00 Care Unknown, [facility] 350.1.13.10 ity [facility] 4.2.7.2.686 Kilo as KRZYSZTOF?BLEA [phone] [facility] [address] [facility] OFFICE [facility] 2022-02-25 2022-02-25 Outpatient R REA [facility] [id number] Univers 17:40:00 17:40:[address] [facility] 2022-02-25 2022-02-25 Outpatient [facility] [id number] Univers 14:00:00 14:00:00 [facility] 2022-02-23 2022-02-23 Orders Doctor TIJERINA 1.2.840.114 [id number] Univers 00:00:00 00:00:00 Only Unassigned, MACKENZIE 350.1.13.10 ity of [place] [facility] 4.2.7.2.686 Kilo as [phone] [address] 2022-01-21 2022-01-21 Outpatient R [facility] [id number] Univers 15:40:00 16:34:00 [facility] 2022-01-21 2022-01-21 Office [facility] 1.2.840.114 [id number] Univers 15:40:00 16:34:00 Visit [facility] 350.1.13.10 ity of [place] 4.2.7.2.686 Kilo as KRZYSZTOF?BLEA [phone] Me salvatore ESTRADA [address] [place] [address] MEDICAL OFFICE [facility] 2021-12-31 2021-12-31 Outpatient R OCTAVIO [facility] [id number] Univers 11:20:00 11:20:00 ANGELA ity of [facility] 2021-12-31 2021-12-31 Orders Doctor TIJERINA 1.2.840.114 [id number] Univers 00:00:00 00:00:00 Only Unassigned, MACKENZIE 350.1.13.10 [facility] [place] [facility] 4.2.7.2.686 Kilo as [phone] [address] 2021-12-24 2021-12-24 Outpatient R ODILON [facility] [id number] Univers 14:30:00 15:49:08 CHARY ity [facility] 2021-12-24 2021-12-24 Office [facility] 1.2.840.114 [id number] Univers 14:30:00 15:49:08 Visit [facility] 350.1.13.10 i ty of [place] 4.2.7.2.686 Kilo as KRZYSZTOF?BLEA [phone] Ri salvatore [address] MEDICAL OFFICE [facility] 2021-12-23 2021-12-23 Abstract Octavio [facility] 1.2.840.114 [id number] Univers 00:00:00 00:00:00 Convoy HEALTH 350.1.13.10 ity of [place] 4.2.7.2.686 Kilo as KRZYSZTOF?BLEA [phone] Ri salvatore ESTRADA [address] [place] [address] MEDICAL OFFICE [facility] 2021-12-17 2021-12-17 Outpatient R BETO [facility] [id number] Univers 11:00:00 11:00:00 DANIEL woodruff f [facility] 2021-12-17 2021-12-17 Refill [facility] 1.2.840.114 [id number] Univers 00:00:00 00:00:00 Angela HEALTH 350.1.13.10 ity of [facility] 4.2.7.2.686 Kilo as KRZYSZTOF?BLEA [phone] Ri diccleopatra [address] MEDICAL OFFICE [facility] 2021-12-10 2021-12-10 Outpatient Braulio CUNNINGHAM [facility] [id number] Univers 09:20:00 09:20:00 [facility] 2021-12-10 2021-12-10 Outpatient Braulio CUNNINGHAM [facility] [id number] Univers 09:20:00 09:20:00 [facility] 2021-12-03 2021-12-03 Outpatient Braulio CUNNINGHAM [facility] [id number] Univers 13:40:00 14:38:59 [facility] 2021-12-03 2021-12-03 Office [facility] 1.2.840.114 [id number] Univers 13:40:00 14:38:59 Visit [facility] 350.1.13.10 ity of [facility] 4.2.7.2.686 Kilo as KRZYSZTOF?BLEA [phone] [facility] MARIZA 044 [facility] 2021-11-27 2021-11-27 Refill [facility] 1.2.840.114 [id number] Univers 00:00:00 00:00:00 Convoy HEALTH 350.1.13.10 ity of [place] 4.2.7.2.686 Kilo as KRZYSZTOF?BLEA [phone] Ri salvatore ESTRADA 044 [facility] 2021-11-26 2021-11-26 Outpatient WON SALDIVAR [facility] [id number] Univers 15:40:00 16:24:[address] [facility] 2021-11-26 2021-11-26 Office [facility] 1.2.840.114 [id number] Univers 15:40:00 16:24:04 Visit [facility] 350.1.13.10 ity of [facility] 4.2.7.2.686 Kilo as KRZYSZTOF?BLEA [phone] Ri salvatore ESTRADA 092 [facility] 2021-11-19 2021-11-19 Outpatient WON SALDIVAR [facility] [id number] Univers 09:57:12 23:59:[address] [facility] 2021-11-19 2021-11-19 [facility] 1.2.219.174 [id number] Univers 09:57:12 23:59:00 Encounter Won ALBRECHT 350.1.13.10 ity [facility] 4.2.7.2.686 [place] [facility] [phone] [facility] [address] 2021-11-18 2021-11-18 Orders Doctor LILLIANA 1.2.840.114 [id number] Univers 00:00:00 00:00:00 Only Unassigned, MACKENZIE 350.1.13.10 ity of [place] [facility] 4.2.7.2.686 Kilo as [phone] [address] 2021-11-09 2021-11-09 Outpatient Braulio [facility] [id number] Univers 13:00:00 13:00:00 DANIEL collins o f [facility] 2021-11-05 2021-11-05 Outpatient Braulio [facility] [id number] Univers 10:40:00 10:40:00 ANGELA collins [facility] 2021-11-02 2021-11-02 Outpatient Braulio MATT WON [facility] [id number] Univers 13:00:00 14:14:[address] [facility] 2021-11-02 2021-11-02 Office [facility] 1.2.840.114 [id number] Univers 13:00:00 14:14:42 Visit Won Ponce [facility] 350.1.13.10 ity of [place] 4.2.7.2.686 Kilo as KRZYSZTOF?BLEA [phone] [address] MEDICAL OFFICE [facility]ILD[facility] 2021-11-01 2021-11-01 Orders Doctor LILLIANA 1.2.840.114 [id number] Univers 00:00:00 00:00:00 Only Unassigned, MACKENZIE 350.1.13.10 ity of [place] [facility] 4.2.7.2.686 Kilo as [phone] [address] 2021-10-28 2021-10-28 Sloan [facility]ORRO [facility] 1.2.458.318 [id number] Univers 00:00:00 00:00:00 Angela HEALTH 350.1.13.10 ity of [place] 4.2.7.2.686 Kilo as KRZYSZTOF?BLEA [phone] [address] OFFICE [facility] 2021-10-26 2021-10-26 Telephone [facility] 1.2.379.502 [id number] Univers 00:00:00 00:00:00 Angela HEALTH 350.1.13.10 ity of [facility] 4.2.7.2.686 Kilo as KRZYSZTOF?BLEA [phone] [address] OFFICE [facility] 2021-10-25 2021-10-25 Outpatient R [facility] [id number] Univers 14:40:00 15:55:58 ANGELA ity [facility] 2021-10-25 2021-10-25 Office [facility] 1.2.840.114 [id number] Univers 14:40:00 15:55:58 Visit [facility] 350.1.13.10 ity of [place] 4.2.7.2.686 Kilo as KRZYSZTOF?BLEA [phone] [address] OFFICE [facility] 2021-10-25 2021-10-25 Telephone [facility] 1.2.036.644 [id number] Univers 00:00:00 00:00:00 Angela HEALTH 350.1.13.10 ity of [facility] 4.2.7.2.686 Kilo as KRZYSZTOF?BLEA [phone] [address] OFFICE [facility] 2021-10-25 2021-10-25 Orders Doctor LILLIANA 1.2.840.114 [id number] Univers 00:00:00 00:00:00 Only Unassigned, MACKENZIE 350.1.13.10 ity of [place] [facility] 4.2.7.2.686 Kilo as [phone] [address] 2021-10-20 2021-10-20 Telephone [facility] 1.2.281.582 [id number] Univers 00:00:00 00:00:00 Angela HEALTH 350.1.13.10 ity of [facility] 4.2.7.2.686 Kilo as KRZYSZTOF?BLEA [phone] [address] MEDICAL OFFICE [facility] 2021-09-24 2021-09-24 Outpatient R OCTAVIO [facility] [id number] Univers 08:40:00 08:40:00 [facility] 2021-09-24 2021-09-24 Outpatient R OCTAVIO [facility] [id number] Univers 08:30:00 08:30:00 [facility] 2021-09-17 2021-09-17 Outpatient R VERNELLWON [facility] [id number] Univers 11:00:00 11:00:[address] [facility] 2021-09-13 2021-09-13 Telephone [facility] 1.2.658.402 [id number] Univers 00:00:00 00:00:00 [facility] 350.1.13.10 ity of [place] 4.2.7.2.686 Kilo as KRZYSZTOF?BLEA [phone] [address] OFFICE [facility] 2021-09-13 2021-09-13 Orders Doctor LILLIANA 1.2.840.114 [id number] Univers 00:00:00 00:00:00 Only Unassigned, MACKENZIE 350.1.13.10 ity of [place] [facility] 4.2.7.2.686 Kilo as [phone] [address] 2021-09-10 2021-09-10 Outpatient R OCTAVIO [facility] [id number] Univers 16:00:00 17:05:49 [facility] 2021-09-10 2021-09-10 Office [facility] 1.2.840.114 [id number] Univers 16:00:00 17:05:49 Visit [facility] 350.1.13.10 ity of [place] 4.2.7.2.686 Kilo as KRZYSZTOF?BLEA [phone] [address] OFFICE [facility] 2021-09-05 2021-09-05 Telephone Odilon [facility] 1.2.195.442 [id number] Univers 00:00:00 00:00:00 Chary A HEALTH 350.1.13.10 i ty of [facility] 4.2.7.2.686 Kilo as KRZYSZTOF?BLEA [phone] [address] OFFICE [facility] 2021-09-03 2021-09-03 Trade Facilitator Lab, Ang - Db [facility] 1.2.840.1 14 [id number] Univers 07:45:00 08:09:03 Visit [facility] 350.1.13.10 ity of [place] 4.2.7.2.686 Kilo as KRZYSZTOF?BLEA [phone] [address] OFFICE [facility] 2021-09-03 2021-09-03 Outpatient [facility] [id number] Univers 07:45:00 07:45:00 [facility] 2021-09-02 2021-09-02 Telephone [facility] 1.2.161.563 [id number] Univers 00:00:00 00:00:00 [facility] 350.1.13.10 ity of [place] 4.2.7.2.686 Kilo as KRZYSZTOF?BLEA [phone] [address] OFFICE [facility] 2021-08-27 2021-08-27 Trade Facilitator Lab, Ang - [facility] 1.2.840.1 14 [id number] [facility] 15:30:00 15:45:00 Visit [facility] 350.1.13.10 ity of [place] 4.2.7.2.686 Kilo as KRZYSZTOF?BLEA [phone] [address] OFFICE [facility] 2021-08-27 2021-08-27 Outpatient R OCTAVIO [facility] [id number] Univers 14:00:00 15:19:02 [facility] 2021-08-27 2021-08-27 Office [facility] 1.2.840.114 [id number] [facility] 14:00:00 15:19:02 Visit [facility] 350.1.13.10 ity of [place] 4.2.7.2.686 Kilo as KRZYSZTOF?BLEA [phone] [address] OFFICE [facility] 2021-08-20 2021-08-20 Refill [facility] 1.2.840.114 [id number] Univers 00:00:00 00:00:00 Chary A HEALTH 350.1.13.10 i ty of [place] 4.2.7.2.686 Kilo as KRZYSZTOF?BLEA [phone] [address] MEDICAL OFFICE [facility] 2021-07-09 2021-07-09 [facility] [id number] Univers 16:00:00 17:29:20 CHARY ity [facility] 2021-07-09 2021-07-09 [facility] 1.2.840.114 [id number] Univers 16:00:00 17:29:20 Visit Chary Goyal HEALTH 350.1.13.10 i ty of [place] 4.2.7.2.686 Kilo as KRZYSZTOF?BLEA [phone] [address] OFFICE [facility] 2021-07-09 2021-07-09 Outpatient [facility] [id number] Univers 16:00:00 17:29:20 CHARY ity [facility] 2021-06-09 2021-06-09 Case [facility] 1.2.840.114 [id number] Univers 00:00:00 00:00:00 Management Rania HEALTH 350.1.13.10 ity of [place] 4.2.7.2.686 Kilo as KRZYSZTOF?BLEA [id number] [address] MEDICAL OFFICE [facility] 2021-06-09 2021-06-09 Tapan Mccartney [facility] 1.2.840.114 [id number] Univers 00:00:00 00:00:00 (Out) Ree HEALTH 350.1.13.10 it y of [place] 4.2.7.2.686 Kilo as KRZYSZTOF?BLEA [id number] [address] MEDICAL OFFICE [facility] 2021-06-08 2021-06-08 Laboratory Only, Ang Db Test [facility] 1.2.8 40.114 [id number] Univers 09:15:00 09:30:00 Only Tera Ricks HEALTH 350.1.13.10 ity of [place] 4.2.7.2.686 Kilo as KRZYSZTOF?BLEA [phone] [facility]cleopatra [facility] [address] MEDICAL OFFICE [facility] 2021-06-08 2021-06-08 Outpatient R ANDREW [facility] [id number] Univers 09:15:00 09:15:00 TERA ity of [facility] 2021-05-17 2021-05-17 Outpatient R JOEL [facility] [id number] Univers 13:30:00 13:30:00 karina NAYAK [facility] 2021-05-13 2021-05-13 Orders Doctor LILLIANA 1.2.840.114 [id number] Univers 00:00:00 00:00:00 Only Unassigned, MACKENZIE 350.1.13.10 ity of [place] [facility] 4.2.7.2.686 Kilo as [phone] [facility] [address] 2021-05-03 2021-05-03 Telephone [facility] 1.2.212.523 [id number] Univers 00:00:00 00:00:00 Amaya HEALTH 350.1.13.10 it y of [place] 4.2.7.2.686 Kilo as KRZYSZTOF?BLEA [phone] [facility] 044 [facility] OFFICE [facility] 2021-04-30 2021-04-30 Telephone [facility] 1.2.707.182 [id number] Univers 00:00:00 00:00:00 Gerardo HEALTH 350.1.13.10 it y of [place] 4.2.7.2.686 Kilo as KRZYSZTOF?BLEA [phone] [facility] [address] MEDICAL OFFICE [facility] 2021-04-29 2021-04-29 Nurse LILLIANA Jain 1.2.840.114 [id number] Univers 00:00:00 00:00:00 Triage Pamela MANN 350.1.13.10 it y of [facility] 4.2.7.2.686 Kilo as [phone] [facility] [address] 2021-04-29 2021-04-29 Isa [facility] 1.2.840.114 [id number] Univers 00:00:00 00:00:00 Wondiful A TRENA 350.1.13.10 ity of [place] 4.2.7.2.686 [place] kerri WHITLEY [id number] Ri salvatore PANTOJA 044 [facility] 2021-04-23 2021-04-23 Outpatient R BETO, [facility] [id number] Univers 09:00:00 09:00:00 QIANGJUN ity o f [facility] 2021-04-14 2021-04-14 Outpatient [facility] [id number] Univers 09:30:00 09:30:00 WONDIFUL ity o f [facility] 2021-04-14 2021-04-14 Outpatient [facility] [id number] Univers 09:30:00 09:30:00 WONDIFUL ity o f [facility] 2021-04-05 2021-04-05 Outpatient R JE[facility]HSHEL[facility] [id number] Univers 10:30:00 10:30:00 JESSICA ity of [facility] 2021-04-05 2021-04-05 Orders Doctor TIJERINA 1.2.840.114 [id number] Univers 00:00:00 00:00:00 Only Unassigned, MACKENZIE 350.1.13.10 [facility] 4.2.7.2.686 Kilo as [phone] [address] 2021-03-22 2021-03-22 Outpatient Braulio [facility] [id number] Univers 11:30:00 12:40:29 AMAYA ity of [facility] 2021-03-22 2021-03-22 Office [facility] 1.2.840.114 [id number] Univers 11:30:00 12:40:29 [facility] 350.1.13.10 it y of [place] 4.2.7.2.686 Kilo as KRZYSZTOF?BLEA [phone] Ri adolphcleopatra MARIZAANDREA [address] [place] [address] MEDICAL OFFICE [facility] 2021-03-21 2021-03-21 Refshruthi HobsonSOCORRO [facility] 1.2.840.114 [id number] Univers 00:00:00 00:00:00 Wondiful A HEALTH 350.1.13.10 ity of [place] 4.2.7.2.686 [place]ilo as PROFESSIO [phone] [address] OFFICE [facility] ONE 2021-02-22 2021-02-22 Office Jeaneth, [facility] 1.2.840.114 [id number] Univers 14:30:00 15:00:00 Visit Jessica R Y HEALTH 350.1.13.10 ity of [place]2.[place] [phone] [address] 2021-02-22 2021-02-22 Outpatient R DON, [facility] [id number] Univers 14:30:00 14:30:00 JESSICA ity [facility] 2021-02-22 2021-02-22 Outpatient R DON, [facility] [id number] Univers 14:30:00 14:30:00 JESSICA ity [facility] 2021-01-25 2021-01-25 [facility] 1.2.840.114 [id number] Univers 00:00:00 00:00:00 Wondiful A HEALTH 350.1.13.10 ity of [place] 4.2.7.2.686 [place] PROFESSIO [phone] [address] ONE 2021-01-21 2021-01-21 [facility] 1.2.840.114 [id number] Univers 00:00:00 00:00:00 Management Wondiful A HEALTH 350.1.13.10 ity of [place] 4.2.7.2.686 [place] KRZYSZTOF?BLEA [phone] [address] OFFICE BUILDING 2021-01-21 2021-01-21 [facility] 1.2.840.114 [id number] Univers 00:00:00 00:00:00 Management Wondiful A HEALTH 350.1.13.10 ity of [place] 4.2.7.2.686 [place] as KRZYSZTOF?BLEA [phone] [address] OFFICE BUILDING 2021-01-20 2021-01-20 Outpatient R TERESITA, [facility] [id number] Univers 09:25:28 23:59:00 SENDIL ity of [facility] 2021-01-20 2021-01-20 Hospital Austin Hobson [facility] 1.2.8 40.114 [id number] Univers 09:00:00 23:59:00 Encounter Ceci Lo [place] 350.1.1 3.10 ity of [place]2.7.2.[place] H[place] [phone] [address] 2021-01-15 2021-01-15 [facility] [id number] Univers 10:10:00 10:10:00 WONDIFUL ity o f [facility] 2021-01-15 2021-01-15 Imm/Inj Vaccine, Ang Db Cbc Fam [facility] 1. 2.840.114 [id number] Univers 08:47:34 08:57:34 Visit Austin Hobson HEALTH 350.1.13.1 0 ity of [place] 4.2.7.2.686 [place] as KRZYSZTOF?BLEA [phone] [facility] DAWKINS [address] MEDICAL OFFICE [facility] 2021-01-15 2021-01-15 [employer] [facility], Ang - Db [facility] 1.2.840.1 [id number] Univers 08:20:53 08:35:53 Visit Austin Hobson HEALTH 350.1.13.1 0 ity of [place] 4.2.7.2.686 [place] as KRZYSZTOF?BLEA [phone] Ri salvatore ESTRADA [address] MEDICAL OFFICE BUILDING 2021-01-14 2021-01-14 Office Joce [facility] 1.2.840.114 [id number] Univers 13:02:10 13:52:29 Visit Austin Goyal HEALTH 350.1.13.10 ity of [place] 4.2.7.2.686 Kilo as KRZYSZTOF?BLEA [phone] Ri salvatore ESTRADA 044 [facility] OFFICE [facility] 2021-01-14 2021-01-14 [facility] [id number] Univers 13:00:00 13:52:29 WONDIFUL ity o f [facility] 2020-12-04 2020-12-04 [facility] 1.2.696.109 [id number] Univers 12:31:25 23:59:00 Encounter Wondiful A [place] 350.1.13.10 ity of [place] [phone] [facility] [address] 2020-12-04 2020-12-04 [facility] [id number] Univers 10:15:00 12:44:29 WONDIFUL ity o f [facility] 2020-12-04 2020-12-04 [facility] 1.2.840.114 [id number] Univers 10:12:12 12:44:29 Visit Wondiful A HEALTH 350.1.13.10 [facility] 4.2.7.2.686 [place]ilo as KRZYSZTOF?BLEA [phone] [address] MEDICAL OFFICE [facility] 2020-10-16 2020-10-16 Patient [facility] 1.2.840.114 [id number] Univers 00:00:00 00:00:00 Secure Msg Wondiful A Health 350.1.13.10 ity of [place] 4.2.7.2.686 [place] Krzysztof?Blea [phone] [address] Medical Office [facility] 2020-10-13 2020-10-13 Telephone [facility] 1.2.840.114 [id number] Univers 00:00:00 00:00:00 Wondiful A Health 350.1.13.10 ity of [place] 4.2.7.2.686 [place] Krzysztof?Blea [phone] [address] Medical Office Building 2020-10-08 2020-10-08 Patient Doctor LILLIANA 1.2.840.114 [id number] Univers 00:00:00 00:00:00 Secure Msg Unassigned, MACKENZIE 350.1.13.10 ity of [place] [facility] 4.2.7.2.686 Kilo as [phone] [facility] [address] 2020-10-08 2020-10-08 [facility] 1.2.840.114 [id number] Univers 00:00:00 00:00:00 Wondiful A Health 350.1.13.10 ity of [place] 4.2.7.2.686 [place] Krzysztof?Blea [phone] [address] Office [facility] 2020-10-08 2020-10-08 Telephone [facility] 1.2.840.114 [id number] Univers 00:00:00 00:00:00 Wondiful A Health 350.1.13.10 ity of [place] 4.2.7.2.686 [place] Krzysztof?Blea [phone] [address] Office [facility] 2020-10-06 2020-10-06 [facility] [id number] Univers 09:00:00 09:00:00 WONDIFUL ity o f [facility] 2020-10-05 2020-10-05 [facility] 1.2.840.114 [id number] Univers 11:08:16 12:09:41 Visit Wondiful A Health 350.1.13.10 ity of [place] 4.2.7.2.686 [place] Krzysztof?Blea [phone] [address] Office [facility] 2020-10-05 2020-10-05 Outpatient R JOCE [facility] [id number] Univers 11:15:00 11:15:00 WONDIFUL ity o f [facility] 2020-09-15 2020-09-15 Outpatient R JOCE [facility] [id number] Univers 14:30:00 14:30:00 WONDIFUL ity o f [facility] 2020-08-06 2020-08-06 Outpatient R BETO [facility] [id number] Univers 00:00:00 00:00:00 DANIEL ity o f [facility] 2020-07-20 2020-07-20 Trade Facilitator Lab, Adc Fam Pob I [facility] 1.2. 840.114 [id number] Univers 10:43:24 11:03:24 Visit Beto, Qiangjun Health 350.1.13.10 ity of [place] 4.2.7.2.686 Kilo as Professio [phone] [address] One 2020-07-20 2020-07-20 Office [facility] 1.2.840.114 [id number] Univers 09:55:53 10:27:33 Visit Daniel Albrecht 350.1.13.10 ity of [place].2.[place] [phone] [address] 2020-07-20 2020-07-20 Outpatient R [facility] [id number] Univers 10:00:00 10:00:00 ANTONISEVERO karina o f [facility] 2020-06-02 2020-06-02 Telephone [facility] 1.2.840.114 [id number] Univers 00:00:00 00:00:00 Wondiful A Health 350.1.13.10 ity of [place] 4.2.7.2.686 [place] Professio [id number] [address] 2020-06-01 2020-06-01 Refill [facility] 1.2.840.114 [id number] Univers 00:00:00 00:00:00 Antonichevy [place] 350.1.13.10 ity of [place].2.[place].2.[place] [phone] [address] 2020-05-18 2020-05-18 Orders Doctor LILLIANA 1.2.840.114 [id number] Univers 00:00:00 00:00:00 Only Unassigned, MACKENZIE 350.1.13.10 ity of [place] [facility] 4.2.7.2.686 Kilo as [phone] [address] 2020-04-29 2020-04-29 Telephone [facility] 1.2.297.761 [id number] 00:00:00 00:00:00 Daniel [place] 350.1.13.10 [place] 4.2.7.2.686 Professio [phone] [address] 2020-04-29 2020-04-29 Refill [facility] 1.2.840.114 [id number] 00:00:00 00:00:00 Daniel Albrecht 350.1.13.10 [place] 4.2.7.2.686 Professio [phone] [address] 2020-04-29 2020-04-29 Telephone [facility] 1.2.795.993 [id number] Univers 00:00:00 00:00:00 Daniel Albrecht 350.1.13.10 ity of [place].2.[place] [phone] [address] 2020-04-29 2020-04-29 Refill [facility] 1.2.840.114 [id number] [facility] 00:00:00 00:00:00 Daniel [place] 350.1.13.10 ity of [place].2.[place] [phone] [address] 2020-04-25 2020-04-25 Urgent Provider, [facility] 1.2.830.291 [id number] 10:12:47 10:32:47 Care [facility] 350.1.13.10 Care [place] 4.2.7.2.686 Professio [phone] [address] 2020-04-25 2020-04-25 Urgent Provider, [facility] 1.2.840.114 [id number] [facility] 10:12:47 10:32:47 Care Mine No [facility] 350.1.13.10 ity of [place] 4.2.7.2.686 [place] Professio [phone] [address] Office [facility] 2020-04-25 2020-04-25 Outpatient R ONEAL [facility] [id number] Univers 10:20:00 10:20:00 MINE mitchell [facility] 2020-04-15 2020-04-15 Telephone [facility] 1.2.840.114 [id number] 00:00:00 00:00:00 Wondiful A Health 350.1.13.10 [place] 4.2.7.2.686 Professio [phone] [place] [address] Office Building One 2020-04-15 2020-04-15 Telephone Joce KYDELIA 1.2.840.114 [id number] Univers 00:00:00 00:00:00 Wondiful A Health 350.1.13.10 ity of [place] 4.2.7.2.686 [place] Professio [phone] [address] Office Building One 2020-03-07 2020-03-07 Patient Tyler [facility] 1.2.840.114 [id number] 00:00:00 00:00:00 Outreach Ethan PRIMARY 350.1.13.10 [place] CARE 4.2.7.2.686 PAVILLION [phone] 388 2020-03-07 2020-03-07 Patient Tyler [facility] 1.2.840.114 [id number] Univers 00:00:00 00:00:00 Outreach Ethan PRIMARY 350.1.13.10 i ty of [place] 4.2.7.2.686 [place]AV[place] [phone] [address] 2020-01-16 2020-01-16 Outpatient R JOCE [facility] [id number] Univers 16:30:00 16:30:00 WONDIFUL ity o f [facility] 2020-01-16 2020-01-16 Telemedici [facility] 1.2.840.114 [id number] 16:09:25 16:24:25 ne Visit Wondiful A Health 350.1.13.10 [place] 4.2.7.2.686 Professio [phone] [place] [address] Office [facility] One 2020-01-16 2020-01-16 Telemedici [facility] 1.2.840.114 [id number] [facility] 16:09:25 16:24:25 ne Visit Wondiful A Health 350.1.13.10 ity of [place] 4.2.7.2.686 [place] Professio [phone] [address] Office [facility] 2020-01-12 2020-01-12 Orders Doctor LILLIANA 1.2.840.114 [id number] 00:00:00 00:00:00 Only Unassigned, MACKENZIE 350.1.13.10 [place] [facility] 4.2.7.2.686 [id number] 009 2020-01-12 2020-01-12 Orders Doctor LILLIANA 1.2.840.114 [id number] Univers 00:00:00 00:00:00 Only Unassigned, MACKENZIE 350.1.13.10 ity of [place] [facility] 4.2.7.2.686 Kilo as [phone] [address] 2020-01-06 2020-01-06 Office Link, [facility] 1.2.840.114 [id number] 10:46:16 11:44:31 Visit Adams Dias AMBULATOR 350.1.13.21 Y 0.2.7.2.686 [id number] 300 2019-12-16 2019-12-16 Case Joce [facility] 1.2.840.114 [id number] 00:00:00 00:00:00 Management Antwandiful A Health 350.1.13.10 [place] 4.2.7.2.686 Professio [phone] [place] [address] Office [facility] 2019-12-16 2019-12-16 Case Joce [facility] 1.2.840.114 [id number] Univers 00:00:00 00:00:00 Management Antwandiful A Health 350.1.13.10 ity of [place] 4.2.7.2.686 [place] Professio [phone] [address] Office [facility] 2019-12-12 2019-12-12 Trade Facilitator 1, Adc Lab [facility] 1.2.840.114 [id number] 09:36:54 09:51:54 Visit [place] 350.1.13.10 [place] 4.2.7.2.686 [place] [phone] 353 2019-12-12 2019-12-12 Trade Facilitator 1, Adc Lab [place] 1.2.840.114 [id number] [facility] 09:36:54 09:51:54 Visit Bacon, Wondiful A [place] 350.1.13. 10 ity of [place] 4.2.7.2.686 [place] [facility] [phone] [facility] [address] 2019-12-12 2019-12-12 Outpatient R [facility] [id number] Univers 08:30:00 08:30:00 ity of [facility] 2019-12-12 2019-12-12 Telephone [facility] 1.2.840.114 [id number] 00:00:00 00:00:00 Wondiful A Health 350.1.13.10 [place] 4.2.7.2.686 Professio [phone] [place] [address] Office Building One 2019-12-12 2019-12-12 Telephone Joce [facility] 1.2.840.114 [id number] Univers 00:00:00 00:00:00 Wondiful A Health 350.1.13.10 ity of [place] 4.2.7.2.686 [place]ilo as Professio [phone] Ri dical [address] Office Building [facility] 2019-12-05 2019-12-05 Orders Doctor LILLIANA 1.2.840.114 [id number] 00:00:00 00:00:00 Only Unassigned, MACKENZIE 350.1.13.10 [place] [facility] 4.2.7.2.686 [id number] [facility] 2019-12-05 2019-12-05 Orders Doctor LILLIANA 1.2.840.114 [id number] Univers 00:00:00 00:00:00 Only Unassigned, MACKENZIE 350.1.13.10 ity of [place] [facility] 4.2.7.2.686 Kilo as [phone] [address] 2019-11-14 2019-11-14 Case [facility] 1.2.840.114 [id number] 00:00:00 00:00:00 Management Wondiful A Health 350.1.13.10 [place] 4.2.7.2.686 Professio [phone] nal [facility] Office Building One 2019-11-14 2019-11-14 Case [facility] 1.2.840.114 [id number] Univers 00:00:00 00:00:00 Management Wondiful A Health 350.1.13.10 ity of [place] 4.2.7.2.686 [place] as Professio [phone] Ri salvatore pantoja [address] [place] [address] Office Building One 2019-11-13 2019-11-13 Case Joce [facility] 1.2.840.114 [id number] 00:00:00 00:00:00 Management Wondiful A Health 350.1.13.10 [place] 4.2.7.2.686 Professio [phone] [place] [address] Office Building One 2019-11-13 2019-11-13 [facility] 1.2.840.114 [id number] Univers 00:00:00 00:00:00 Management Wondiful A Health 350.1.13.10 ity of [place] 4.2.7.2.686 [place] as Professio [phone] Ri salvatore pantoja [address] [place] [address] Office [facility] One 2019-11-08 2019-11-08 Trade Facilitator Lab, Adc Fam Pob I [facility] 1.2. 840.114 [id number] Univers 11:16:17 11:26:17 Visit [place] Hobson [facility] 350.1.13.1 0 ity of [place] 4.2.7.2.686 Kilo as Professio [phone] Ri salvatore pnatoja [address] [place] [address] Office Building One 2019-11-08 2019-11-08 Office [facility] 1.2.840.114 [id number] 09:44:58 11:00:23 Visit Wondiful A Health 350.1.13.10 [place] 4.2.7.2.686 Professio [phone] [place] [address] Office Building One 2019-11-08 2019-11-08 [facility] 1.2.840.114 [id number] Univers 09:44:58 11:00:23 Visit Wondiful A Health 350.1.13.10 ity of [place] 4.2.7.2.686 [place] as Professio [phone] Ri salvatore [address] Office Building One 2019-11-08 2019-11-08 Outpatient R JOCE [facility] [id number] Univers 08:45:00 08:45:00 WONDIFUL ity o f [facility] 2019-09-02 2019-11-04 Telemedici [facility] 1.2.840.114 [id number] Univers 09:09:51 09:25:19 ne Visit Wondiful A [place] 350.1.13.10 ity of [place].2.[place] [phone] [address] 2019-11-04 2019-11-04 Trade Facilitator Lab, Adc Fam Pob I [facility] 1.2. 840.114 [id number] [facility] 09:02:55 09:12:55 Visit Austin Hobson A Health 350.1.13.1 0 ity of [place] 4.2.7.2.686 [place] as Professio [phone] [address] Office [facility] One 2019-11-04 2019-11-04 [facility] [id number] Univers 09:00:00 09:00:00 WONDIFUL ity o f [facility] 2019-10-30 2019-10-30 [facility]ill [facility] 1.2.840.114 [id number] Univers 00:00:00 00:00:00 Wondiful A Health 350.1.13.10 ity of [place] 4.2.7.2.686 [place] Professio [phone] [address] Office [facility] One 2019-10-25 2019-10-25 [facility] 1.2.840.114 [id number] Univers 00:00:00 00:00:00 Wondiful A Health 350.1.13.10 ity of [place] 4.2.7.2.686 [place] Professio [phone] [address] Office [facility] One 2019-10-25 2019-10-25 [facility]shruthi [facility] 1.2.840.114 [id number] Univers 00:00:00 00:00:00 Wondiful A Health 350.1.13.10 ity of [place] 4.2.7.2.686 [place]ilo as Professio [phone] [address] Office [facility] One 2019-10-07 2019-10-07 Office Link, [facility] 1.2.840.114 [id number] 08:45:50 10:08:26 Visit [place] Larissa AMBULATOR 350.1.13.21 Y 0.2.7.2.686 [id number] 300 2019-10-07 2019-10-07 Orders Doctor LILLIANA 1.2.840.114 [id number] Univers 00:00:00 00:00:00 Only Unassigned, MACKENZIE 350.1.13.10 ity of [place] [facility] 4.2.7.2.686 Kilo as [phone] [facility] [address] 2019-09-30 2019-09-30 Office [facility], [facility] 1.2.840.114 [id number] Univers 09:15:37 09:55:50 Visit Daniel Albrecht 350.1.13.10 ity of [place].2.7.2.[place] [phone] Ri dical nal [address] Building 2019-09-30 2019-09-30 Outpatient [facility] [id number] Univers 09:40:00 09:40:00 QIAVERÓNICACHEVY ity o f [facility] 2019-09-02 2019-09-02 Outpatient [facility] [id number] Univers 08:45:00 08:45:00 WONDIFUL ity o f [facility] 2019-08-30 2019-08-30 Telephone LILLIANA Donald 1.2.173.041 [id number] Univers 00:00:00 00:00:00 Chary MANN 350.1.13.10 i ty of [facility] 4.2.7.2.686 Kilo as [phone] [facility] [address] 2019-08-29 2019-08-29 Laboratory Lab, Adc Fam Pob I [facility] 1.2. 840.114 [id number] Univers 11:32:55 11:52:55 Only Amaya Arita 350.1.13.10 ity of [place] 4.2.7.2.686 Kilo as Professio [phone] Ri dical nal [address] Office Building One 2019-08-29 2019-08-29 Outpatient [facility] [id number] Univers 11:40:00 11:40:00 AMAYA ity of [facility] 2019-08-29 2019-08-29 Urgent Lab, [facility] 1.2.840.114 [id number] 11:00:00 11:20:00 Care Fam Pob I Health 350.1.13.10 [place] 4.2.7.2.686 Professio [phone] [address] 2019-08-29 2019-08-29 Urgent Lab, [facility] Fam Pob I [facility] 1.2.840 .114 [id number] Univers 11:00:00 11:20:00 Care Casie Aritathia Health 350.1.13.10 ity of [place] 4.2.7.2.686 [place]ilo as Professio [phone] [address] Office [facility] 2019-08-29 2019-08-29 Outpatient R [facility] [id number] Univers 11:00:00 11:00:00 ity of [facility] 2019-08-29 2019-08-29 Letter Doctor LILLIANA 1.2.840.114 [id number] Univers 00:00:00 00:00:00 (Out) Unassigned, MACKENZIE 350.1.13.10 ity of [place] [facility] 4.2.7.2.686 Kilo as [phone] [address] 2019-08-20 2019-08-20 [facility]ill [facility] 1.2.840.114 [id number] Univers 00:00:00 00:00:00 Wondiful A Health 350.1.13.10 ity of [place] 4.2.7.2.686 [place]ilo as Professio [phone] [address] Office [facility] 2019-07-30 2019-07-30 Office ADRIAN Thacker Encounter / Legacy 00:00:00 00:00:00 Visit Renata [id number] [facility] natalee [id number] [facility] 2019-07-11 2019-07-11 Outpatient R JOCE [facility] [id number] Univers 09:15:00 09:15:00 WONDIFUL ity o f [facility] 2019-07-03 2019-07-03 [facility] 1.2.840.114 [id number] Univers 00:00:00 00:00:00 Antwandiful A [place] 350.1.13.10 ity [facility] 4.2.7.2.[place] [phone] [address] 2019-07-01 2019-07-01 Office Wilfredo, [facility] Encounter/ Legacy 00:00:00 00:00:00 Visit Mirella [id number] Com natalee Jono [id number] [facility] 2019-07-01 2019-07-01 Office Wilfredo, [facility] Encounter/ Legacy 00:00:00 00:00:00 Visit Mirella [id number] Com natalee Jono [id number] [facility] 2019-07-01 2019-07-01 Office Wilfredo, Mirella De La Cruz [facility] Encounter/ Legacy 00:00:00 00:00:00 Visit Shy Miller [id number] [facility] [id number] [facility] 2019-07-01 2019-07-01 [facility] 1.2.840.114 [id number] Univers 00:00:00 00:00:00 [facility] 350.1.13.10 ity [facility] 4.2.7.2.686 Kilo as Professio [phone] [address] 2019-06-25 2019-06-25 Office Wilfredo, [facility] Encounter/ Legacy 00:00:00 00:00:00 Visit Mirella [id number] Com natalee Jono [id number] [facility] 2019-06-25 2019-06-25 Office Wilfredo, [facility] Encounter/ Legacy 00:00:00 00:00:00 Visit Mirella [id number] Com natalee Jono [id number] [facility] 2019-06-25 2019-06-25 Office Wilfredo, [facility] Encounter/ Legacy 00:00:00 00:00:00 Visit Mirella [id number] Com natalee Jono [id number] [facility] 2019-06-25 2019-06-25 Office Wilfredo, Mirella De La Cruz [facility] Encounter/ Legacy 00:00:00 00:00:00 Visit Renata Thacker [id number] Communi [id number] [facility] 2019-05-14 2019-05-14 [facility] 1.2.840.114 [id number] Univers 00:00:00 00:00:00 Wondiful A Health 350.1.13.10 ity of [place] 4.2.7.2.686 [place]ilo as Professio [phone] [facility] 044 [facility] 2019-04-05 2019-04-05 Outpatient R JOCE [facility] [id number] Univers 13:15:00 14:32:32 WONDIFUL ity o f [facility] 2019-04-05 2019-04-05 Office [facility] 1.2.840.114 [id number] Univers 13:11:19 14:32:32 Visit Wondiful A Health 350.1.13.10 ity of [place] 4.2.7.2.686 [place] as Professio [phone] [facility] 044 [facility] 2019-04-04 2019-04-04 Telephone [facility] 1.2.799.920 [id number] Univers 00:00:00 00:00:00 Antoniverónicachevy [place] 350.1.13.10 ity of [place].2.[place] [phone] Ri salvatore nal 059 [facility] 2019-04-01 2019-04-01 Trade Facilitator 2, Adc Lab [facility] 1.2.840.114 [id number] Univers 11:11:10 11:26:10 Visit Daniel Pérez 350.1.13.10 ity of [place] 4.2.7.2.[place] [phone] Ri salvatore nal 353 [facility] 2019-04-01 2019-04-01 Outpatient R BETO [facility] [id number] Univers 11:15:00 11:15:00 ANTONIVERÓNICACHEVY ity o f [facility] 2019-04-01 2019-04-01 Office [facility] 1.2.840.114 [id number] Univers 09:49:17 11:01:30 Visit Daniel Albrecht 350.1.13.10 ity of [place] 4.2.7.2.[place] [phone] Ri dical nal [address] [facility] 2019-04-01 2019-04-01 Orders Doctor LILLIANA 1.2.840.114 [id number] Univers 00:00:00 00:00:00 Only Unassigned, MACKENZIE 350.1.13.10 ity of [place] [facility] 4.2.7.2.686 Kilo as [phone] [facility] [address] 2018-08-03 2018-08-03 Outpatient R JOCE, [facility] [id number] [facility] 12:45:00 12:45:00 WONDIFUL ity o f [facility] Results Test Description Test Time Test Comments Results Result Comments Source N-TERMINAL PRO-BNP 2022-06-11 15:02:10 Test Item Value Reference Range Interpretation Comme nts NT-proBNP (test code = 2418577584) 782 pg/mL <=450 H ALEXIS (test code = ALEXIS) Biotin has been reported to cause a negative bias, interpret results relative to patient's use of biotin. Lab Interpretation (test code = 81147-6) Abnormal [facility] (NA, K, CL, CO2, GLUCOSE, BUN, CREATININE, CA)2022-06-11 14:53:52 Test Item Value Reference Range Interpretation Comments NA (test code = 139 mmol/L 135-145 1900064053) K (test code = 4.5 mmol/L 3.5-5.0 6223471507) CL (test code = 103 mmol/L 98-108 1134278307) CO2 TOTAL (test code = 30 mmol/L 23-31 1290426279) AGAP (test code = 6 2-16 0752346701) BUN (test code = 17 mg/dL 7-23 3634063184) GLUCOSE (test code = 134 mg/dL 70-110 H 5064643205) CREATININE (test code = 0.57 mg/dL 0.50-1.04 9167490982) CALCIUM (test code = 9.0 mg/dL 8.6-10.6 1764644690) eGFR (test code = 100.6 mL/min/1.73m2 1202965512) ALEXIS (test code = ALEXIS) Association of [...] tests). Lab Interpretation Abnormal (test code = 95281-4) [facility]ress[facility]CT-GLUCOSE [id number] 11:00:26 Test Item Value Reference Range Interpretation Comments POC-GLUCOSE METER 139 mg/dL 70-110 H : TESTED A T [facility] 6720 (Ischemix) (test code = [facility], 153) 39421: Seat Pack Inspector/Techni socrates ID = [id number] for [place], Sridevi POCT-GLUCOSE [id number] 08:28:34 Test Item Value Reference Range Interpretation Comments POC-GLUCOSE METER 147 mg/dL 70-110 H : TESTED A T [facility] 6720 (SlideJarAKER) (test code = [facility], 1538) 44530: Seat Pack Inspector/Techni socrates ID = [id number] for [place], Sridevi BASIC METABOLIC [id number] 05:30:33 Test Item Value Reference Range Interpretation [...] not appl icable for dialysis patien ts Seat Pack Inspector ID - TERRELL [id number] 05:30:33 Test Item Value Reference Range Interpretation Comments MAGNESIUM (BEAKER) (test code = 2.1 mg/dL 1.6-2.6 627) Seat Pack Inspector ID - TERRELL GCBC W/PLT COUNT & AUTO [id number] 05:08:16 Test Item Value Reference Range Interpretation [...] PERCENT (BEAKER) (test code = 2801) POCT-GLUCOSE [id number] 22:18:08 Test Item Value Reference Range Interpretation Comments POC-GLUCOSE METER 150 mg/dL 70-110 H : Notified RN/MD: (AJIT) (test code = TESTED AT [facility] 7228 1542) [facility], [address]: Seat Pack Inspector/Techni socrates ID = [id number] for HERNÁN SMALL[place]OD POCT-GLUCOSE [id number] 18:35:11 Test Item Value Reference Range Interpretation Comments POC-GLUCOSE METER 153 mg/dL 70-110 H : TESTED A T [facility] 6720 (BEAKER) (test code [facility], = 1538) [address]: Seat Pack Inspector/Techni socrates ID = [id number] for BRODERICK VEE POCT-GLUCOSE [id number] 12:18:53 Test Item Value Reference Range Interpretation Comments POC-GLUCOSE METER 149 mg/dL 70-110 H : TESTED A T [facility] 6720 (BEAKER) (test code [facility], = 1538) [address]: Seat Pack Inspector/Techni socrates ID = [id number] for BRODERICK VEE POCT-GLUCOSE [id number] 09:02:22 Test Item Value Reference Range Interpretation Comments POC-GLUCOSE METER 138 mg/dL 70-110 H : TESTED A T [facility] 6720 (BEAKER) (test code [facility], = 1538) [address]: Seat Pack Inspector/Techni socrates ID = [id number] for BRODERICK VEE BASIC METABOLIC [id number] 06:05:05 Test Item Value Reference Range Interpretation [...] not appl icable for dialysis patien ts Seat Pack Inspector ID - [id number] 06:05:05 Test Item Value Reference Range Interpretation Comments MAGNESIUM (BEAKER) (test code = 2.1 mg/dL 1.6-2.6 627) Seat Pack Inspector ID - [id number] 06:05:05 Test Item Value Reference Range Interpretation Comments PHOSPHORUS (BEAKER) (test code = 4.8 mg/dL 2.3-4.7 H 604) Seat Pack Inspector ID - MARCOCBC W/PLT COUNT & AUTO [id number] 05:46:55 Test Item Value Reference Range Interpretation [...] PERCENT (BEAKER) (test code = 2801) POCT-GLUCOSE [id number] 20:25:43 Test Item Value Reference Range Interpretation Comments POC-GLUCOSE METER 153 mg/dL 70-110 H : TESTED A T [facility] 6720 (BEAKER) (test code = [facility], 153) 57743: Seat Pack Inspector/Techni socrates ID = [id number] for Laurita alenasegundo Felicia POCT-GLUCOSE [id number] 18:10:56 Test Item Value Reference Range Interpretation Comments POC-GLUCOSE METER 162 mg/dL 70-110 H : TESTED A T [facility] 6720 (BEAKER) (test code [facility], = 1538) 93656: Seat Pack Inspector/Techni socrates ID = [id number] for LATT IMORE - CARA, BRODERICK POCT-GLUCOSE [id number] 13:16:14 Test Item Value Reference Range Interpretation Comments POC-GLUCOSE METER 133 mg/dL 70-110 H : TESTED A T [facility] 6720 (BEAKER) (test code [facility], = 1538) 09911: Seat Pack Inspector/Techni socrates ID = [id number] for LATT IMORE - CARA, BRODERICK POCT-GLUCOSE [id number] 08:50:00 Test Item Value Reference Range Interpretation Comments POC-GLUCOSE METER 122 mg/dL 70-110 H : TESTED A T [facility] 6720 (BEAKER) (test code [facility] [place], = 1538) 79251: Seat Pack Inspector/Techni socrates ID = [id number] for NEGRITO ODETTE MARROQUIN BRODERICK CBC W/PLT COUNT & AUTO [id number] 05:50:43 Test Item Value Reference Range Interpretation [...] 0.00-1.00 PERCENT (BEAKER) (test code = 2801) [id number] 05:40:36 Test Item Value Reference Range Interpretation Comments PHOSPHORUS (BEAKER) 3.8 mg/dL 2.3-4.7 Specimen moderately (test code = 604) hemolyzed Seat Pack Inspector ID - AAHAMIDBASIC METABOLIC [id number] 05:40:36 Test Item Value Reference Range Interpretation [...] not appl icable for dialysis patien ts Seat Pack Inspector ID - [id number] 05:40:35 Test Item Value Reference Range Interpretation Comments MAGNESIUM (BEAKER) 2.2 mg/dL 1.6-2.6 Specimen moderately (test code = 627) hemolyzed Seat Pack Inspector ID - AAHAMIDPOCT-GLUCOSE [id number] 00:20:31 Test Item Value Reference Range Interpretation Comments POC-GLUCOSE METER 136 mg/dL 70-110 H : TESTED A T [facility] 6720 (BEAKER) (test code = [facility], 1538) 71047: Seat Pack Inspector/Techni socrates ID = [id number] for Zev akers (contract)Francisco POCT-GLUCOSE [id number] 16:54:24 Test Item Value Reference Range Interpretation Comments POC-GLUCOSE METER 160 mg/dL 70-110 H : TESTED A T [facility] 6720 (BEAKER) (test code = [facility], 1538) 64746: Seat Pack Inspector/Techni socrates ID = [id number] for Co Anabel mcculloughrina POCT-GLUCOSE [id number] 15:00:16 Test Item Value Reference Range Interpretation Comments POC-GLUCOSE METER 169 mg/dL 70-110 H : TESTED A T [facility] 6720 (BEAKER) (test code = [facility], 1538) 50927: Seat Pack Inspector/Techni socrates ID = [id number] for Iam macias (contract), Roberto francisca HEMOGLOBIN [id number] 08:42:39 Test Item Value Reference Range Interpretation [...] 5.7- 6.4% indicates increased risk for diabetes (prediabetes)."Seat Pack Inspector ID - ADM [id number] 04:27:27 Test Item Value Reference Range Interpretation Comments MAGNESIUM (BEAKER) 2.1 mg/dL 1.6-2.6 Specimen slightly (test code = 627) hemolyzed Seat Pack Inspector ID - [id number] 04:27:27 Test Item Value Reference Range Interpretation Comments PHOSPHORUS (BEAKER) 3.0 mg/dL 2.3-4.7 Specimen slightly (test code = 604) hemolyzed Seat Pack Inspector ID - MARCOBASIC METABOLIC [id number] 04:27:27 Test Item Value Reference Range Interpretation [...] eGF R is based on the CKD-EPI 2021 equation that d oes not use a race coefficientEsti mated GFR is not as accur ate as Creatinine Dominique cassandra in predicting glom erular filtration rate . Estimated GFR is not appl icable for dialysis patien ts Seat Pack Inspector ID - MARCOCBC W/PLT COUNT & AUTO [id number] 04:02:29 Test Item Value Reference Range Interpretation [...] PERCENT (BEAKER) (test code = 2801) POCT-GLUCOSE [id number] 00:54:42 Test Item Value Reference Range Interpretation Comments POC-GLUCOSE METER 196 mg/dL 70-110 H : TESTED A T [facility] 6720 ([facility]) (test code = [facility], 1538) 02624: Seat Pack Inspector/Techni socrates ID = [id number] for JAY BAILEY HIGH SENSITIVITY TROPONIN [id number] 19:05:12 Test Item Value Reference Range Interpretation Comments HIGH SENSITIVITY TROPONIN I (test 43 pg/ml <=17 H code = 1205627) Seat Pack Inspector ID - BSThe ANALYSIS INTERN STAT High Sensitivity Troponin-I results should be used in conjunctionwith other diagnostic information such as ECG, clinical observations and information, and patient symptoms to aid in the diagnosis of NV.POCT-GLUCOSE [id number] 17:15:39 Test Item Value Reference Range Interpretation Comments POC-GLUCOSE METER 267 mg/dL 70-110 H : TESTED A T [facility] 6720 ([facility]) (test code = [facility], 1538) 92989: Seat Pack Inspector/Techni socrates ID = [id number] for Co sadia, Sridevi POCT-GLUCOSE [id number] 12:13:16 Test Item Value Reference Range Interpretation Comments POC-GLUCOSE METER 257 mg/dL 70-110 H : Notified RN/MD: ([facility]) (test code = TESTED AT [facility] 6720 1538) [facility], [address]: Seat Pack Inspector/Techni socrates ID = [id number] for LL PRAMOD HELLER TSH/FREE T4 IF [id number] 12:08:26 Test Item Value Reference Range Interpretation Comments THYROID STIMULATING HORMONE 0.911 uIU/mL 0.350-4.940 ([facility]) (test code = 772) Seat Pack Inspector ID - MMHIGH SENSITIVITY TROPONIN [id number] 11:54:08 Test Item Value Reference Range Interpretation Comments HIGH SENSITIVITY TROPONIN I (test 68 pg/ml <=17 H code = 3408321) Seat Pack Inspector ID - MMThe ANALYSIS INTERN STAT High Sensitivity Troponin-I results should be used in conjunctionwith other diagnostic information such as ECG, clinical observations and information, and patient symptoms to aid in the diagnosis of NV.CBC W/PLT COUNT & AUTO [id number] 11:19:14 Test Item Value Reference Range Interpretation Comments WHITE BLOOD CELL COUNT ([facility]) 10.2 K/ L 3.5-10.5 (test code = [...] PERCENT (BEAKER) (test code = 2801) RESPIRATORY [id number] 11:14:11 Test Item Value Reference Range Interpretation [...] SEVERE ACUTE RESPIRATORY Not detected Not detected, [id number] Equivocal (test code = 5083759) BORDETELLA PARAPERTUSSIS Not detected Not detected, (BKR) (test code = 4534459) Equivocal Other viruses and bacteria not targeted by this PCR panel cannot be excluded; therefore clinical correlation and follow up of serology, culture results, and other molecular studies is required. The results are not intended to be used as the sole means for clinical diagnosis or patient management decisions. This sample was tested at the [facility] Molecular Diagnostics Laboratory using the [employer] FilmArray Respiratory Panel. It is FDA cleared and has been verified and approved by the [facility] Molecular Diagnostics Laboratory for clinical use on nasopharyngeal swab specimens.The performance of the FilmArrayRP has not been established in individuals who received influenza vaccine. Recent administration of a nasal influenza vaccine may cause false positive results for Influenza A and/orInfluenza B.[id number] 10:49:18 Test Item Value Reference Range Interpretation Comments PROCALCITONIN (BEAKER) (test code = < ng/mL <0.05 3036) SEPSIS RISK (ng/mL)Low: 0.05-0.50Intermediate: 0.51-2.00High: >=2.01HIGH SENSITIVITY TROPONIN [id number] 10:36:58 Test Item Value Reference Range Interpretation Comments HIGH SENSITIVITY TROPONIN I (test 69 pg/ml <=17 H code = 9720236) Seat Pack Inspector ID - MMThe ANALYSIS INTERN STAT High Sensitivity Troponin-I results should be used in conjunctionwith other diagnostic information such as ECG, clinical observations and information, and patient symptoms to aid in the diagnosis of NV.B-TYPE NATRIURETIC FACTOR (BNP)2022-05-28 10:36:39 Test Item Value Reference Range Interpretation Comments B-TYPE NATRIURETIC PEPTIDE (BEAKER) 367 pg/mL 0-100 H (test code = 700) Seat Pack Inspector ID - [id number] 09:16:13 Test Item Value Reference Range Interpretation Comments PHOSPHORUS (BEAKER) (test code = 3.0 mg/dL 2.3-4.7 604) Seat Pack Inspector ID - MMCOMPREHENSIVE METABOLIC [id number] 09:16:12 Test Item Value Reference Range Interpretation [...] eGF R is based on the CKD-EPI 2021 equation that d oes not use a race coefficientEsti mated GFR is not as accur ate as Creatinine Dominique trujillo in predicting glom erular filtration rate . Estimated GFR is not appl icable for dialysis patien ts Seat Pack Inspector ID - [id number] 09:16:12 Test Item Value Reference Range Interpretation Comments MAGNESIUM (BEAKER) (test code = 2.0 mg/dL 1.6-2.6 627) Seat Pack Inspector ID - MMRAD, CHEST, 1 VIEW, NON [id number] 09:03:00Reason for exam:- >shortness of breathShould this be performed at the bedside?->Yes [facility]Y [facility] : 1935 Sex: FFINAL [...] MDReport Verified Date/Time: 05/28/2022 09:03:39 LACTIC ACID, [id number] 08:50:45 Test Item Value Reference Range Interpretation Comments LACTATE BLOOD VENOUS 3.84 mmol/L 0.50-2.00 H Specime n moderately (2) (BEAKER) (test hemolyzed code = 2872) Seat Pack Inspector ID - [id number] 08:47:24 Test Item Value Reference Range Interpretation Comments FIBRINOGEN LEVEL (BEAKER) (test 207 mg/dl 225-434 L code = 658) PROTHROMBIN TIME/[id number] 08:47:03 Test Item Value Reference Range Interpretation Comments PROTIME (BEAKER) (test code = 14.1 seconds 11.9-14.2 759) INR (BEAKER) (test code = 370) 1.11 <=5.90 RECOMMENDED COUMADIN/WARFARIN INR THERAPY RANGESSTANDARD DOSE: 2.0 - 3.0 Includes: PROPHYLAXIS for venous thrombosis, systemic embolization; TREATMENT for venous thrombosis and/or pulmonary embolus.HIGH RISK: Target INR is 2.5-3.5 for patients with mechanical heart valves.BLOOD GAS, [id number] 08:43:53 Test Item Value Reference Range Interpretation [...] (test code = 1819) 40.0 CBC WITH [id number] 00:09:18 Test Item Value Reference Range Interpretation Comments WBC (test code = See_Comment [Automated 9442-2) message] The sy stem which generated this result transmitted reference range : 4.30 - 11.10 10*3/?L. The reference range was not used to interpret this result as normal/abnormal . RBC (test code = See_Comment [Automated 091-8) message] The sy stem which generated this [...] RDW-SD (test code = 45.1 fL 39.0-49.9 98155-9) RDW-CV (test code = 15.3 % 12.0-15.5 788-0) PLT (test code = See_Comment [Automated 777-3) message] The sy stem which generated this result transmitted reference range : 166 - 358 10*3/ ?L. The reference r nanci was not used to interpret this result as normal/abnormal . MPV (test code = 11.4 fL 9.5-12.9 69954-9) NRBC/100 WBC (test See_Comment [Automat ed code = 5487187537) message] The system which generated this result transmitted reference range : 0.0 - 10.0 /100 WBCs. The refer ence range was not u sed to interpret th is result as normal/abnormal . NRBC x10^3 (test code See_Comment [Auto mated = 2089216410) message] The s ystem which generated this result transmitted reference range : 10*3/?L. The reference range was not used to interpret this result as normal/abnormal . GRAN MAT (NEUT) % 57.0 % (test code = 770-8) IMM GRAN % (test code 0.30 % = 5059643756) LYMPH % (test code = 32.1 % 736-9) MONO % (test code = 7.8 % 5905-5) EOS % (test code = 2.5 % 713-8) BASO % (test code = 0.3 % 706-2) GRAN MAT x10^3(ANC) 4.26 10*3/uL 1.88-7.09 (test code = 7435024818) IMM GRAN x10^3 (test 0.00-0.06 code = 4487416168) LYMPH x10^3 (test code 2.40 10*3/uL 1.32-3.29 = 731-0) MONO x10^3 (test code 0.58 10*3/uL 0.33-0.92 = 742-7) EOS x10^3 (test code = 0.19 10*3/uL 0.03-0.39 711-2) BASO x10^3 (test code 0.01-0.07 = 704-7) Lab Interpretation Abnormal (test code = 65252-4) [facility] WITH [id number] 00:09:18 Test Item Value Reference Range Interpretation [...] RDW-SD (test code = 45.1 fL 39.0-49.9 61804-0) RDW-CV (test code = 15.3 % 12.0-15.5 788-0) PLT (test code = 332 See_Comment [Automated 777-3) message] The sy stem which generated this result transmitted reference range : 166 - 358 10*3/ ?L. The reference r nanci was not used to interpret this result as normal/abnormal . MPV (test code = 11.4 fL 9.5-12.9 93591-6) NRBC/100 WBC (test 0.0 See_Comment [Automat ed code = 9148808244) message] The system which generated this result transmitted reference range : 0.0 - 10.0 /100 WBCs. The refer ence range was not u sed to interpret th is result as normal/abnormal . NRBC x10^3 (test code See_Comment [Auto mated = 4714874181) message] The s ystem which generated this result transmitted reference range : 10*3/?L. The reference range was not used to interpret this result as normal/abnormal . GRAN MAT (NEUT) % 57.0 % (test code = 770-8) IMM GRAN % (test code 0.30 % = 6469912281) LYMPH % (test code = 32.1 % 736-9) MONO % (test code = 7.8 % 5905-5) EOS % (test code = 2.5 % 713-8) BASO % (test code = 0.3 % 706-2) GRAN MAT x10^3(ANC) 4.26 10*3/uL 1.88-7.09 (test code = 4661296651) IMM GRAN x10^3 (test 0.00-0.06 code = 9023908213) LYMPH x10^3 (test code 2.40 10*3/uL 1.32-3.29 = 731-0) MONO x10^3 (test code 0.58 10*3/uL 0.33-0.92 = 742-7) EOS x10^3 (test code = 0.19 10*3/uL 0.03-0.39 711-2) BASO x10^3 (test code 0.01-0.07 = 704-7) Lab Interpretation Abnormal (test code = 01632-3) [facility] WITH [id number] 00:09:18 Test Item Value Reference Range Interpretation Comments WBC (test code = 7.47 See_Comment [Automated 7225-2) message] The sy stem which generated this result transmitted reference range : 4.30 - 11.10 10*3/?L. The reference range was not used to interpret this result as normal/abnormal . RBC (test code = 4.42 See_Comment [Automated 080-8) message] The sy stem which generated this [...] RDW-SD (test code = 45.1 fL 39.0-49.9 17099-3) RDW-CV (test code = 15.3 % 12.0-15.5 788-0) PLT (test code = 332 See_Comment [Automated 777-3) message] The sy stem which generated this result transmitted reference range : 166 - 358 10*3/ ?L. The reference r nanci was not used to interpret this result as normal/abnormal . MPV (test code = 11.4 fL 9.5-12.9 85025-9) NRBC/100 WBC (test 0.0 See_Comment [Automat ed code = 2903618172) message] The system which generated this result transmitted reference range : 0.0 - 10.0 /100 WBCs. The refer ence range was not u sed to interpret th is result as normal/abnormal . NRBC x10^3 (test code See_Comment [Auto mated = 4079938397) message] The s ystem which generated this result transmitted reference range : 10*3/?L. The reference range was not used to interpret this result as normal/abnormal . GRAN MAT (NEUT) % 57.0 % (test code = 770-8) IMM GRAN % (test code 0.30 % = 9516874531) LYMPH % (test code = 32.1 % 736-9) MONO % (test code = 7.8 % 5905-5) EOS % (test code = 2.5 % 713-8) BASO % (test code = 0.3 % 706-2) GRAN MAT x10^3(ANC) 4.26 10*3/uL 1.88-7.09 (test code = 6336146717) IMM GRAN x10^3 (test 0.00-0.06 code = 0514527456) LYMPH x10^3 (test code 2.40 10*3/uL 1.32-3.29 = 731-0) MONO x10^3 (test code 0.58 10*3/uL 0.33-0.92 = 742-7) EOS x10^3 (test code = 0.19 10*3/uL 0.03-0.39 711-2) BASO x10^3 (test code 0.01-0.07 = 704-7) Lab Interpretation Abnormal (test code = 91242-6) [facility]. METABOLIC PANEL (53858)2021-09-03 20:37:56 Test Item Value Reference Range Interpretation Comments NA (test code = 138 mmol/L 135-145 5077644097) K (test code = 4.4 mmol/L 3.5-5.0 2211245256) CL (test code = 99 mmol/L 98-108 1188529593) CO2 TOTAL (test code = 28 mmol/L 23-31 4091225174) AGAP (test code = 11 2-16 8997499614) BUN (test code = 18 mg/dL 7-23 6661378795) GLUCOSE (test code = 122 mg/dL 70-110 H 0854583528) CREATININE (test code = 0.59 mg/dL 0.50-1.04 5017732959) TOTAL BILI (test code = 0.5 mg/dL 0.1-1.5 8236089907) CALCIUM (test code = 9.0 mg/dL 8.6-10.6 0938483677) T PROTEIN (test code = 6.6 g/dL 6.3-8.2 0868014204) ALBUMIN (test code = 4.1 g/dL 3.5-5.0 3718487122) ALK PHOS (test code = 91 U/L 34-122 8127840532) ALTv (test code = 21 U/L 5-35 1742-6) AST(SGOT) (test code = 27 U/L 13-40 9053745884) eGFR (test code = 96.9 mL/min/1.73m2 0371293072) ALEXIS (test code = ALEXIS) Association of [...] tests). Lab Interpretation Abnormal (test code = 18694-8) [facility] Test Item Value Reference Range Interpretation Comments LIPASE (test code = 9587978527) 184 U/L 0-220 Lab Interpretation (test code = Normal 62737-9) [facility] WITH [id number] 19:27:42 Test Item Value Reference Range Interpretation Comments WBC (test code = 8.34 See_Comment [Automated 0981-2) message] The sy stem which generated this result transmitted reference range : 4.30 - 11.10 10*3/?L. The reference range was not used to interpret this result as normal/abnormal . RBC (test code = 4.38 See_Comment [Automated 836-8) message] The sy stem which generated this [...] RDW-SD (test code = 48.8 fL 39.0-49.9 16661-5) RDW-CV (test code = 15.2 % 12.0-15.5 788-0) PLT (test code = 291 See_Comment [Automated 777-3) message] The sy stem which generated this result transmitted reference range : 166 - 358 10*3/ ?L. The reference r nanci was not used to interpret this result as normal/abnormal . MPV (test code = 11.2 fL 9.5-12.9 58887-6) NRBC/100 WBC (test 0.0 See_Comment [Automat ed code = 0751967741) message] The system which generated this result transmitted reference range : 0.0 - 10.0 /100 WBCs. The refer ence range was not u sed to interpret th is result as normal/abnormal . NRBC x10^3 (test code See_Comment [Auto mated = 6217665056) message] The s ystem which generated this result transmitted reference range : 10*3/?L. The reference range was not used to interpret this result as normal/abnormal . GRAN MAT (NEUT) % 60.5 % (test code = 770-8) IMM GRAN % (test code 0.40 % = 5334235876) LYMPH % (test code = 27.5 % 736-9) MONO % (test code = 8.3 % 5905-5) EOS % (test code = 2.9 % 713-8) BASO % (test code = 0.4 % 706-2) GRAN MAT x10^3(ANC) 5.06 10*3/uL 1.88-7.09 (test code = 7459299211) IMM GRAN x10^3 (test 0.03 10*3/uL 0.00-0.06 code = 6383220961) LYMPH x10^3 (test code 2.29 10*3/uL 1.32-3.29 = 731-0) MONO x10^3 (test code 0.69 10*3/uL 0.33-0.92 = 742-7) EOS x10^3 (test code = 0.24 10*3/uL 0.03-0.39 711-2) BASO x10^3 (test code 0.03 10*3/uL 0.01-0.07 = 704-7) Lab Interpretation Abnormal (test code = 50507-0) [facility]O, NON-SPECIFIC, UP TO 1 HOUR 2019-07-14 09:44:00Reason for exam:->cystoFINAL REPORT A fluoroscopic unit was utilized for a procedure performed in the operating room. No interpretation was requested. Please refer to the operative report regarding findings. Please refer to PACS for patient radiation dose information. Signed: JR Elizabeth, Alla Mast Verified Date/Time: 07/14/2019 09:44:15 Reading Location: [address] Neuro Reading Room BLOOD [id number] 11:00:00 Test Item Value Reference Range Interpretation Comments CULTURE (BEAKER) (test No growth in 5 days code = 1095) BLOOD [id number] 11:00:00 Test Item Value Reference Range Interpretation Comments CULTURE (BEAKER) (test No growth in 5 days code = 1095) URINE [id number] 11:07:00 Test Item Value Reference Range Interpretation Comments CULTURE (BEAKER) (test code = 1095) No growth ANG, NEPHROSTOMY, PERC, EXTERNAL [id number] 11:00:00Reason for exam:- >request left PCN for left obstructing stone, feversFINAL REPORT Procedure: Percutaneous nephrostomy catheter placement. History: Left ureteric calculus with obstruction, infection. Electrotyper Helper: Bradford Matthew M.D. Digital Traffic Coordinator: Nargis mckeon M.D. Modality: Ultrasound and fluoroscopy. [...] sequential dilatation of the tract, an 8.5 Prydeinig nephrostomy catheter was placed, pigtail locked in [...] the bladder. Impression:Successful ultrasound and fluoroscopicguided 8.5 Prydeinig nephrostomy catheter placement left kidney via a posterior inferior calyx as described above. Further management dictated by the clinical scenario. The nephrostomy catheter(s) should be exchanged at the latest in three months. Thank you for the opportunity to assist in the care of your patient. Signed: Bradford Matthew MDReport Verified Date/Time: 07/10/2019 11:00:12 Reading Location:[place] [address] Angio Body Reading Room 11:00 AMBASIC METABOLIC [id number] 07:33:00 Test Item Value Reference Range Interpretation [...] 1092) DATA TO CALCULA TE ESTIMATED GFR. Seat Pack Inspector ID - MONIE [id number] 07:25:00 Test Item Value Reference Range Interpretation Comments MAGNESIUM (BEAKER) (test code = 2.2 mg/dL 1.6-2.6 627) Seat Pack Inspector ID - MONIE CHEPATIC FUNCTION [id number] 07:25:00 Test Item Value Reference Range Interpretation [...] (test code = 43 U/L 6-55 347) Seat Pack Inspector ID - MONIE CCBC W/PLT COUNT & AUTO [id number] 06:54:00 Test Item Value Reference Range Interpretation [...] (BEAKER) (test code = 2801) BASIC METABOLIC [id number] 05:38:00 Test Item Value Reference Range Interpretation [...] 1092) DATA TO CALCULA TE ESTIMATED GFR. Seat Pack Inspector ID - [id number] 05:24:00 Test Item Value Reference Range Interpretation Comments MAGNESIUM (BEAKER) (test code = 1.8 mg/dL 1.6-2.6 627) Seat Pack Inspector ID - LAHEPATIC FUNCTION [id number] 05:24:00 Test Item Value Reference Range Interpretation [...] (test code = 36 U/L 6-55 347) Seat Pack Inspector ID - LACBC W/PLT COUNT & AUTO [id number] 04:34:00 Test Item Value Reference Range Interpretation [...] (BEAKER) (test code = 2801) LACTIC ACID, [id number] 20:25:00 Test Item Value Reference Range Interpretation Comments LACTATE BLOOD VENOUS (2) (BEAKER) 0.69 mmol/L 0.50-2.20 (test code = 2872) Seat Pack Inspector ID - LAVON, CHEST, 1 VIEW, NON [id number] 16:24:00Reason for exam:->feverShould this be performed at the bedside?->YesFINAL REPORT CLINICAL HISTORY: fever TECHNIQUE: 1 view of the chest. COMPARISON: None IMPRESSION: There is possible retrocardiac left lower lobe consolidation, for which clinical correlation for pneumonia is requested. There is blunting of the left costophrenic angle. The heart isnot enlarged. Signed: Rich Rebolledo MDReport Verified Date/Time: 07/08/2019 16:24:52 Reading Location: [address] Neuro Reading Room HEMOGLOBIN [id number] 13:56:00 Test Item Value Reference Range Interpretation Comments HEMOGLOBIN A1C (BEAKER) (test code = 6.1 % 4.3-6.1 368) URINALYSIS W/ REFLEX URINE [id number] 13:15:00 Test Item Value Reference Range Interpretation [...] = 516) SOURCE(BEAKER) (test code = 2795) Seat Pack Inspector ID - [auto]Seat Pack Inspector ID - techRESPIRATORY PANEL [id number] 12:14:00 Test Item Value Reference Range Interpretation [...] Equivocal MYCOPLASMA PNEUMONIAE Not detected Not detected, (AJIT) (test code = 3207) Equivocal Other viruses and bacteria not targeted by this PCR panel cannot be excluded; therefore clinical correlation and follow up of serology, culture results, and other molecular studies is required. The results are not intended to be used as the sole means for clinical diagnosis or patient management decisions. This sample was tested at the [facility] Molecular Diagnostics Laboratory using the [employer] Film[employer] Respiratory Panel. It is FDA cleared and has been verified and approved by the [facility] Molecular Diagnostics Laboratory for clinical use on nasopharyngeal swab specimens.The performance of the FilmArrayRP has not been established in individuals who received influenza vaccine. Recent administration of a nasal influenza vaccine may cause false positive results for Influenza A and/orInfluenza B.SARS-COV2/RT-PCR ([facility])2019-07-08 11:26:00 Test Item Value Reference Range Interpretation Comments SARS-COV2/RT-PCR (test Not Detected Not Detected, Negative code = 0478443) SARS-COV-2 PERFORMING LAB [facility] (test code = 9574373) Negative results do not preclude SARS-CoV-2 infection [...] of the Act.Fact Sheet for Healthcare Pro viders:https://www.[employer].com/Documents/Xpert%20Xpress%20SARS%20CoV-2/Fact%20Sh eets/302-3802%44PHVD-VPD-6%20HEALTHCARE%20PROVIDERS%20FACT%20SHEET.pdfFact Sheet for Healthcare Patients:https://www.[employer].com/Documents/Xpert%20Xpress%20SARS%20CoV-2/Fact%20Sheets/302-3801%20SARS-COV -2%20PATIENT%20FACT%20SHEET.pdfPerforming Laboratory:[place] [address] [address] [place], [place] [address]KNNPF METABOLIC [id number] 10:06:00 Test Item Value Reference Range Interpretation [...] 1092) DATA TO CALCULA TE ESTIMATED GFR. Seat Pack Inspector ID - [id number] 10:05:00 Test Item Value Reference Range Interpretation Comments MAGNESIUM (BEAKER) (test code = 2.0 mg/dL 1.6-2.6 627) Seat Pack Inspector ID - NTPHEPATIC FUNCTION [id number] 10:05:00 Test Item Value Reference Range Interpretation [...] (test code = 30 U/L 6-55 347) Seat Pack Inspector ID - [id number] 09:53:00 Test Item Value Reference Range Interpretation [...] 2.5-3.5 for patients wiht mechanical heart valves.PROTHROMBIN TIME/[id number] 09:51:00 Test Item Value Reference Range Interpretation [...] for patients wiht mechanical heart valves.LACTIC ACID, [id number] 09:50:00 Test Item Value Reference Range Interpretation Comments LACTATE BLOOD VENOUS (2) (BEAKER) 2.87 mmol/L 0.50-2.20 H (test code = 2872) Seat Pack Inspector ID - [id number] W/PLT COUNT & AUTO [id number] 09:41:00 Test Item Value Reference Range Interpretation [...]
[2022-08-28 05:38] LABS: Arterial Blood Carboxyhemoglob 1.2 % (0-1.5); Blood Gas Oxyhemoglobin 93.1 % (94-97); Blood O2 Saturation 95.5 % (92-98.5)
[2022-08-28 05:39] LABS: Absolute Lymphocytes (CBC) 7.6 K/uL (0.7-4.9); Hematocrit 40.2 % (36.0-45.0); Lymphocytes % 51.6 % (15.3-44.8); MCV 74.4 fL (80-100); MPV 8.4 fL (7.6-11.3); RBC Red Blood Cell Count 5.41 M/uL (3.86-4.86)
[2022-08-28] MEDS ORDERED: FUROSEMIDE 40 MG/4 ML VIAL ONE (05:39)
[2022-08-28 05:53] LABS: ALT/SGPT 28 U/L (13-56); AST/SGOT 25 U/L (15-37); Albumin 3.4 g/dL (3.4-5.0); Alkaline Phosphatase 128 U/L (45-117); BUN Blood Urea Nitrogen 14 mg/dL (7-18); Bicarbonate 21 mEq/L (21-32); Bilirubin Total 0.4 mg/dL (0.2-1.0); Glomerular Filtration Rate 58 ml/min (=/>90); Glucose Level 291 mg/dL (74-106); Magnesium 2.4 mg/dL (1.6-2.4); NT PRO-BNP 1103 pg/mL (<450); Potassium 3.6 mEq/L (3.5-5.1); Protein, Total 7.6 g/dL (6.4-8.2); Sodium Level 137 mEq/L (136-145); Troponin High Sensitivity 47.3 pg/mL (<58.9)
[2022-08-28 05:55] LABS: Bilirubin Direct < 0.1 mg/dL (0-0.2); Bilirubin Indirect, Calculated ND mg/dL (0.2-0.8)
--- NOTE | 2022-08-28 06:17 | ER ---
Nurse's Notes [facility] Name: Erika Jacobson Age: 87 yrs Sex: Female : 1935 Arrival Date: 08/28/2022 Time: 05:07 Bed 4 Private MD: Diagnosis: Systolic (congestive) heart failure;Acute respiratory failure with hypoxia Presentation: 08/28 05:14 Chief complaint: Patient's son or daughter states: difficulty breathing that started as6 approx 1 hr [employer] police [employer]. Coronavirus screen: At this time, the client does not indicate any symptoms associated with coronavirus-19. Ebola Screen: No symptoms or risks identified at this time. Risk Assessment: Do you want to hurt yourself or someone else? Patient reports no desire to harm self or others. Onset of symptoms was August 28, 2022. 05:14 Acuity: ISHAN 2 as6 05:14 Method Of Arrival: Wheelchair as6 06:48 Initial Sepsis Screen: Does the patient meet any 2 criteria? RR > 20 per min. HR > 90 as6 bpm. Does the patient have a suspected source of infection? No. Patient's initial sepsis screen is negative. Historical: - Allergies: 05:15 No Known Allergies; as6 - PMHx: 05:15 Asthma; Congestive heart failure; CVA; Hyperlipidemia; Hypertension; as6 - PSHx: 05:15 choleycestectomy; hysterectomy; kidney stones; as6 - Immunization history:: Adult Immunizations up to date. - Social history:: Smoking status: Patient denies any tobacco usage or history of. - Family history:: not pertinent. Screenin:16 [facility] ED Fall Risk Assessment (Adult) Score/Fall Risk Level 0 - 2 = Low Risk. Abuse as6 screen: Denies threats or abuse. Denies injuries from another. Nutritional screening: No deficits noted. Tuberculosis screening: No symptoms or risk factors identified. Assessment: 05:15 General: Appears distressed, Behavior is calm, cooperative. Pain: Denies pain. Neuro: as6 Level of Consciousness is awake, alert, obeys commands, Oriented to person, place, time. Cardiovascular: Capillary refill < 3 seconds Patient's skin is warm and dry. Edema is 1+ to left ankle, left foot, left toes, right ankle, right foot and right toes. Respiratory: Respiratory effort is labored, Breath sounds are coarse Breath sounds with crackles bilaterally. 06:40 Respiratory: Respiratory effort is even, unlabored, Patient placed on BiPAP: as6 Inspiratory Pressure: 12 Expiratory (EPAP) Pressure: 3 FiO2%: 30 Respiratory Rate: 18. 06:49 Reassessment: Patient appears in no apparent distress at this time. as6 07:00 Reassessment: Patient appears in no apparent distress at this time. No changes from jl7 previously documented assessment. Pt laying in bed with eyes closed, respirations even and unlabored, BiPap in place. Pt's son at bedside, reports Dr. Bower was so amazing. 08:00 Reassessment: Patient appears in no apparent distress at this time. No changes from jl7 previously documented assessment. Patient and/or family updated on plan of care and expected duration. Pain level reassessed. Patient is alert, oriented x 3, equal unlabored respirations, skin warm/dry/pink. 09:00 Reassessment: Patient appears in no apparent distress at this time. No changes from jl7 previously documented assessment. Patient and/or family updated on plan of care and expected duration. Pain level reassessed. Patient is alert, oriented x 3, equal unlabored respirations, skin warm/dry/pink. Vital Signs: 05:13 BP 177 / 105; Pulse 136; Resp 29 S; Pulse Ox 75% on R/A; as6 05:14 Pulse Ox 100% on 15 lpm Non-rebreather mask; as6 05:15 Weight 45.36 kg; Height 4 ft. 9 in. ; as6 05:51 BP 141 / 73; Pulse 98; Resp 21 S; Pulse Ox 100% on BiPAP; as6 06:39 BP 114 / 59; Pulse 90; Resp 14 S; Pulse Ox 98% on 30 lpm BiPAP; as6 06:48 Temp 97.2(TE); as6 07:00 BP 126 / 60; Pulse 87; Resp 19; Pulse Ox 98% on BiPAP; jl7 08:00 BP 135 / 62; Pulse 89; Resp 19; Pulse Ox 99% ; 7 09:00 BP 121 / 60; Pulse 84; Resp 15; Pulse Ox 98% on BiPAP; 7 09:59 BP 122 / 58; Pulse 87; Resp 18; Pulse Ox 99% ; jl7 05:15 Body Mass Index 21.64 (45.36 kg, 144.78 cm) as6 ED Course: 05:08 Patient arrived in ED. ja2 05:11 Bossman Bower MD is Attending Physician. rt 05:13 Stevo Jean, VIVIENNE is Primary Nurse. as6 05:15 Triage completed. as6 05:15 Arm band placed on. as6 05:16 Bed in low position. Call light in reach. Side rails up X2. as6 05:26 Troponin HS Sent. kd3 05:26 NT PRO-BNP Sent. kd3 05:26 Magnesium Sent. kd3 05:26 LFT's Sent. kd3 05:26 CBC with Diff Sent. kd3 05:26 Basic Metabolic Panel Sent. kd3 05:27 Inserted saline lock: 22 gauge in left forearm, using aseptic technique. Blood kd3 collected. 05:34 XRAY Chest (1 view) In Process Unspecified. EDMS 05:48 [place] cath inserted, using sterile technique, 16 Fr., by mn, balloon inflated, to as6 gravity drainage, returned clear yellow urine. Patient tolerated well. 06:16 Chantale Garcia MD is Hospitalizing Provider. rt 06:41 Provided Education on: need for admit. as6 06:49 No provider procedures requiring assistance completed. Patient admitted, IV remains in as6 place. Administered Medications: 05:48 Drug: Furosemide IVP 40 mg Route: IVP; Site: left antecubital; as6 06:41 Follow up: Response: No adverse reaction as6 07:00 Follow up: Urine output 550 ml jl7 10:04 Follow up: Urine output 400 ml jl7 Medication: 06:41 VIS not applicable for this client. as6 Output: 06:48 Urine: 550ml ([place]); Total: 550ml. as6 07:00 Urine: 550ml; Total: 1100ml. jl7 10:04 Urine: 400ml; Total: 1500ml. jl7 Outcome: 06:16 Decision to Hospitalize by Provider. rt 06:41 Condition: stable as6 06:41 Instructed on the need for admit. 09:59 Admitted to Tele accompanied by nurse, via stretcher, room 218, with oxygen, with jl7 chart, Report called to VIVIENNE Vu 10:27 Patient left the ED. jl7 Signatures: Dispatcher [employer] Marla Castro, RN RN jl7 Araseli Ugalde Ashby, RN RN as6 Jazmyn Sheridan RN RN kd3 Bossman Bower MD MD rt
--- NOTE | 2022-08-28 06:17 | EDPHYS ---
Physician Documentation [facility] Name: Erika Jacobson Age: 87 yrs Sex: Female : 1935 Arrival Date: 08/28/2022 Time: 05:07 Bed 4 Private MD: ED Physician Bossman Bower HPI: 08/28 05:25 This 87 yrs old Female presents to ER via Wheelchair with complaints of rt Breathing Difficulty. 05:25 Patient presents to the ED with breathing difficulty, respiratory distress starting rt tonight. Patient does have a history of CHF, states this is similar to that. Denies other acute complaints at this time including chest pain. Symptoms are severe in severity, no other aggravating alleviating factors.. Historical: - Allergies: 05:15 No Known Allergies; as6 - PMHx: 05:15 Asthma; Congestive heart failure; CVA; Hyperlipidemia; Hypertension; as6 - PSHx: 05:15 choleycestectomy; hysterectomy; kidney stones; as6 - Immunization history:: Adult Immunizations up to date. - Social history:: Smoking status: Patient denies any tobacco usage or history of. - Family history:: not pertinent. ROS: 05:25 Constitutional: Negative for fever, chills, and weight loss, Cardiovascular: Negative rt for chest pain, palpitations, and edema, Abdomen/GI: Negative for abdominal pain, nausea, vomiting, diarrhea, and constipation, MS/Extremity: Negative for injury and deformity, Skin: Negative for injury, rash, and discoloration, Neuro: Negative for headache, weakness, numbness, tingling, and seizure, Psych: Negative for depression, anxiety, suicide ideation, homicidal ideation, and hallucinations. 05:25 Respiratory: Positive for cough, shortness of breath. Exam: 05:25 Constitutional: This is a well developed, well nourished patient who is awake, alert, rt and in no acute distress. Head/Face: Normocephalic, atraumatic. Chest/axilla: Normal chest wall appearance and motion. Nontender with no deformity. No lesions are appreciated. Cardiovascular: Regular rate and rhythm with a normal S1 and S2. No gallops, murmurs, or rubs. Normal PMI, no JVD. No pulse deficits. Abdomen/GI: Soft, non-tender, with normal bowel sounds. No distension or tympany. No guarding or rebound. No evidence of tenderness throughout. Skin: Warm, dry with normal turgor. Normal color with no rashes, no lesions, and no evidence of cellulitis. MS/ Extremity: Pulses equal, no cyanosis. Neurovascular intact. Full, normal range of motion. Neuro: Awake and alert, GCS 15, oriented to person, place, time, and situation. Cranial nerves II-XII grossly intact. Motor strength 5/5 in all extremities. Sensory grossly intact. Cerebellar exam normal. Normal gait. Psych: Awake, alert, with orientation to person, place and time. Behavior, mood, and affect are within normal limits. 05:25 ECG was reviewed by the Attending Physician. 05:25 Respiratory: Crackles heard on all lung iyer, moderate respiratory distress. Vital Signs: 05:13 BP 177 / 105; Pulse 136; Resp 29 S; Pulse Ox 75% on R/A; as6 05:14 Pulse Ox 100% on 15 lpm Non-rebreather mask; as6 05:15 Weight 45.36 kg; Height 4 ft. 9 in. ; as6 05:51 BP 141 / 73; Pulse 98; Resp 21 S; Pulse Ox 100% on BiPAP; as6 06:39 BP 114 / 59; Pulse 90; Resp 14 S; Pulse Ox 98% on 30 lpm BiPAP; as6 06:48 Temp 97.2(TE); as6 07:00 BP 126 / 60; Pulse 87; Resp 19; Pulse Ox 98% on BiPAP; jl7 08:00 BP 135 / 62; Pulse 89; Resp 19; Pulse Ox 99% ; jl7 09:00 BP 121 / 60; Pulse 84; Resp 15; Pulse Ox 98% on BiPAP; jl7 09:59 BP 122 / 58; Pulse 87; Resp 18; Pulse Ox 99% ; jl7 05:15 Body Mass Index 21.64 (45.36 kg, 144.78 cm) as6 MDM: 05:14 Patient medically screened. rt 06:16 Differential diagnosis: Pneumonia, pneumothorax, CHF. Antibiotic administration: Not rt indicated, the patient does not have an appreciated infiltrate. Data reviewed: vital signs, nurses notes, lab test result(s), EKG, radiologic studies. Consideration of Admission/Observation Patient was admitted/placed on observation. Management of patient was discussed with the following: Hospitalist: Agrees to admit. I considered the following discharge prescriptions or medication management in the emergency department Medications were administered in the Emergency Department. See MAR. Independent interpretation of the following test(s) in the Emergency Department X-Ray: My interpretation is Pulmonary edema seen on my interpretation of the x-ray image. Test considered but Not performed: CT: Low suspicion for PE, CT angiogram not indicated. Counseling: I had a detailed discussion with the patient and/or guardian regarding: the historical points, exam findings, and any diagnostic results supporting the discharge/admit diagnosis, lab results, radiology results, the need for further work-up and treatment in the hospital. Response to treatment: the patient's symptoms have markedly improved after treatment. 08/28 05:15 Order name: Basic Metabolic Panel; Complete Time: 06:01 rt 08/28 05:15 Order name: CBC with Diff rt 08/28 05:15 Order name: LFT's; Complete Time: 06:01 rt 08/28 05:15 Order name: Magnesium; Complete Time: 06:01 rt 08/28 05:15 Order name: NT PRO-BNP; Complete Time: 06:01 rt 08/28 05:15 Order name: Troponin HS; Complete Time: 06:01 rt 08/28 05:15 Order name: ABG; Complete Time: 06:08 rt 08/28 08:05 Order name: CBC with Automated Diff EDMS 08/28 08:05 Order name: CBC with Automated Diff EDMS 08/28 08:05 Order name: Comprehensive Metabolic Panel EDMS 08/28 08:05 Order name: Comprehensive Metabolic Panel EDMS 08/28 08:05 Order name: Troponin High Sensitivity EDMS 08/28 08:05 Order name: Troponin High Sensitivity EDMS 08/28 08:05 Order name: Troponin High Sensitivity EDMS 08/28 08:12 Order name: CBC Smear Scan EDMS 08/28 05:15 Order name: XRAY Chest (1 view) rt 08/28 05:15 Order name: BIPAP rt 08/28 08:05 Order name: Echo with Doppler EDMS 08/28 05:15 Order name: EKG; Complete Time: 05:16 rt 08/28 08:05 Order name: CONS Physician Consult EDMS 08/28 08:05 Order name: Heart Healthy EDMS 08/28 05:15 Order name: Cardiac monitoring; Complete Time: 05: rt 08/28 05:15 Order name: EKG - Nurse/Tech; Complete Time: rt 08/28 05:15 Order name: IV Saline Lock; Complete Time: rt 08/28 05:15 Order name: Labs collected and sent; Complete Time: rt 08/28 05:15 Order name: O2 Per Protocol; Complete Time: rt 08/28 05:15 Order name: O2 Sat Monitoring; Complete Time: : rt EC: Rate is 109 beats/min. Rhythm is regular, Sinus tachycardia with Left bundle branch rt block. FL interval is normal. QRS interval is normal. QT interval is normal. No Q waves. Interpreted by me. Administered Medications: 05:48 Drug: Furosemide IVP 40 mg Route: IVP; Site: left antecubital; as6 06:41 Follow up: Response: No adverse reaction as6 07:00 Follow up: Urine output 550 ml jl7 10:04 Follow up: Urine output 400 ml jl7 Disposition: 06:20 Critical Care:. rt Disposition Summary: 08/28/22 06:16 Hospitalization Ordered Hospitalization Status: Inpatient Admission rt Provider: Chantale Garcia rt [facility] rt Condition: Serious rt Problem: an acute exacerbation rt Symptoms: have improved rt Bed/Room Type: Standard rt Room Assignment: 218(08/28/22 09:52) jl7 Diagnosis - Systolic (congestive) heart failure rt - Acute respiratory failure with hypoxia rt Forms: - Medication Reconciliation Form rt - SBAR form rt Critical care time excluding procedures: 06:20 Critical care time: Bedside Care: 30 minutes, Consultation: 10 minutes. Total time: 40 rt minutes Signatures: Dispatcher [employer] Marla Castro RN RN jl7 Stevo Jean RN RN as6 Bossman Bower MD MD rt Corrections: (The following items were deleted from the chart) 09:52 06:16 rt jl7
[2022-08-28] MEDS ORDERED: ONDANSETRON 4 MG/2 ML VIAL IV PRN (07:59)
[2022-08-28] MEDS ORDERED: HYDRALAZINE HCL 20 MG/ML VIAL IV PRN (07:59)
[2022-08-28] MEDS ORDERED: MORPHINE 2 MG/ML SYR IV PRN (07:59)
[2022-08-28 08:12] LABS: Anisocytosis 1+; Blood Morphology Comment NOTED (NOT SEEN); Platelet Estimate ADEQ; White Blood Cell Scan OK (OK)
--- NOTE | 2022-08-28 10:08 | RAD REPORT ---
EXAM DESCRIPTION: RAD - Chest Single View - 08/28/2022 5:32 am CLINICAL HISTORY: The patient is 87 years old and is Female; [facility] MAIN TECHNIQUE: Frontal view of the chest. COMPARISON: 08/03/2022 and 05/28/2022 chest radiographs FINDINGS: LUNGS: Diffuse bilateral interstitial and basilar predominant hazy airspace opacities, f avoring pulmonary edema versus interstitial or atypical pneumonia. No dense focal consolidation. PLEURAL SPACE: No appreciable pleural effusion. No pneumothorax. HEART: Stable. MEDIASTINUM: Stable cardiomediastinal silhouette. BONES/JOINTS: No acute findings. VASCULATURE: Calcified atherosclerosis of the thoracic aorta. IMPRESSION: Diffuse bilateral interstitial and basilar predominant hazy airspace opacities, favoring pulmonary edema versus interstitial or atypical pneumonia. Electronically signed by: Ozzy Torres MD 08/28/2022 5:56 AM CDT Due to temporary technical issues with the PACS/Fluency reporting system, reports are being signed by the in house radiologists without review as a courtesy to insure prompt reporting. The interpreting radiologist is fully responsible for the content of the report.
[2022-08-28 10:39] VITALS: BMI 24.7
[2022-08-28 10:59] VITALS: O2SAT 99
[2022-08-28] MEDS: FUROSEMIDE 40 MG/4 ML VIAL IV SCH ×2 (12:06→17:18)
--- NOTE | 2022-08-28 20:05 | P.HP ---
Certification for Inpatient Patient admitted to: Inpatient With expected LOS: >2 Midnights Patient will require the following post-hospital care: None Practitioner: I am a practitioner with admitting privileges, knowledge of patient current condition, hospital course, and medical plan of care. Services: Services provided to patient in accordance with Admission requirements found in Title 42 Section 412.3 of the Code of Federal Regulations Patient History Date of Service: 08/28/22 Reason for admission: Acute respiratory distress History of Present Illness: Patient is an 87-year-old female came to the hospital with acute respiratory distress. Patient blood pressure on arrival was 180/100 and her heart rate was 130s. She was not able to get her breath in the emergency room her work-up revealed that she had bilateral pulmonary edema and she was placed on a BiPAP and started on IV Lasix. Patient diuresed significantly and they were able to get her blood pressure better controlled. Patient was admitted to the hospital for further evaluation. Patient will be admitted to the hospital on BiPAP. We will try to get her weaned off as we get her blood pressure controlled and will get her diurese more effectively. Patient is German-speaking only and her son is at bedside and helped translate. Allergies No Known Allergies Allergy (Verified 09/03/18 08:32) Home Medications: Aspirin Chewable [Aspirin Chewable*] 81 mg PO DAILY 02/15/22 Atorvastatin Calcium [Lipitor*] 20 mg PO BEDTIME 02/15/22 Losartan Potassium [Cozaar] 25 mg PO DAILY 02/15/22 carvediloL [Coreg*] 6.25 mg PO DAILY 02/15/22 Ipratropium/Albuterol Sulfate [Iprat-Albut 0.5-3(2.5) mg/3 ml] 3 ml IH Q6H PRN #120 amp 05/09/22 Nebulizer 1 each MC QID #1 ea 05/09/22 Furosemide 40 mg PO BID 08/28/22 Iron 18 mg PO DAILY 08/28/22 - Past Medical/Surgical History Has patient received pneumonia vaccine in the past: Yes Diabetic: No -: Hypertension -: Dyslipidemia -: CVA -: kidney stones -: Asthma -: Diastolic heart failure -: Prediabetes -: Cholecystectomy Psychosocial/ Personal History: Patient lives at home with her children. - Social History Smoking Status: Never smoker Alcohol use: No CD- Drugs: No Caffeine use: Yes Place of Residence: Home Review of Systems 10-point ROS is otherwise unremarkable Physical Examination - Vital Signs Temperature: 98.4 F Blood Pressure: 109/69 Pulse: 91 Respirations: 16 Pulse Ox (%): 97 - Physical Exam General: Alert, In no apparent distress, Oriented x3 HEENT: Atraumatic, PERRLA, Mucous membr. moist/pink, EOMI, Sclerae nonicteric Neck: Supple, 2+ carotid pulse no bruit, No LAD, Without JVD or thyroid abnormality Respiratory: Crackles/rales Cardiovascular: Regular rate/rhythm, Normal S1 S2 Gastrointestinal: Normal bowel sounds, Soft and benign, Non-distended, No tenderness Musculoskeletal: No clubbing, No swelling, No tenderness Integumentary: No rashes Neurological: Normal gait, Normal speech, Normal strength at 5/5 x4 extr, Normal tone, Sensation intact, Cranial nerves 3-12 intact, Normal affect Lymphatics: No axilla or inguinal lymphadenopathy - Studies Laboratory Data (last 24 hrs) 08/28/22 05:24: WBC 14.70 H, Hgb 12.4, Hct 40.2, Plt Count 392 08/28/22 05:24: Sodium 137, Potassium 3.6, BUN 14, Creatinine 0.96, Glucose 291 H, Magnesium 2.4, Total Bilirubin 0.4, AST 25, ALT 28, Alkaline Phosphatase 128 H Assessment & Plan - Problems (Diagnosis) (1) Acute on chronic diastolic heart failure Current Visit: No Status: Acute (2) Acute respiratory failure with hypoxemia Current Visit: No Status: Acute (3) CVA (cerebral vascular accident) Onset Date: 12/27/17 Current Visit: No Status: Acute Qualifiers: (4) Malignant hypertension Current Visit: No Status: Acute (5) NSTEMI (non-ST elevated myocardial infarction) Current Visit: No Status: Acute (6) Near syncope Current Visit: No Status: Acute - Plan PLAN: 1. Echocardiogram if it has not been performed in the last 6 months 2. We will start patient on an MYNOR inhibitor or an ARB 3. We will start patient on a Beta fariha 4. Cardiology consultation 5. Aggressive diuresis 6. Strict I's and O's 7. Repeat CXR 8. Daily weights 9. Education regarding diet and treatment of congestive heart failure - Advance Directives Does patient have a Living Will: No Does patient have a Durable POA for Healthcare: No
[2022-08-28] MEDS ORDERED: ALPRAZOLAM 0.5 MG TABLET PO PRN (20:08)
[2022-08-28] MEDS ORDERED: ATORVASTATIN 20 MG TAB PO SCH (21:00)
[2022-08-29 00:39] VITALS: TEMP 97.7
[2022-08-29 07:45] LABS: Absolute Lymphocytes (CBC) 2.6 K/uL (0.7-4.9); Hematocrit 35.1 % (36.0-45.0); Lymphocytes % 28.1 % (15.3-44.8); MCV 72.9 fL (80-100); MPV 8.5 fL (7.6-11.3); RBC Red Blood Cell Count 4.82 M/uL (3.86-4.86)
[2022-08-29 07:49] LABS: Potassium 3.1 mEq/L (3.5-5.1)
[2022-08-29 07:50] LABS: Bilirubin Total 0.6 mg/dL (0.2-1.0); Protein, Total 6.5 g/dL (6.4-8.2)
[2022-08-29] MEDS ORDERED: ASPIRIN 81 MG CHEWABLE TABLET PO SCH (09:00)
[2022-08-29] MEDS ORDERED: carvediloL 6.25 MG TAB PO SCH (09:00)
[2022-08-29] MEDS: FUROSEMIDE 40 MG/4 ML VIAL IV SCH (09:00)
[2022-08-29] MEDS ORDERED: LOSARTAN POTASSIUM 50 MG TABLET PO SCH (09:00)
[2022-08-29] MEDS: ALBUTEROL 2.5 MG/3 ML NEB SOL NEB PRN ×2 (09:30→13:20)
[2022-08-29] MEDS: IPRATROPIUM BROM 0.5MG/2.5ML NEB PRN ×2 (09:30→13:20)
--- NOTE | 2022-08-29 11:45 | EKG ---
Test Date: 2022-08-28 Test Time: 05:23:58 Psychosocial Rehabilitation Counselor: MEASUREMENT RESULTS: Intervals: Rate: 109 MT: 168 QRSD: 150 QT: 380 QTc: 511 [place]: P: 60 MT: 168 QRS: -37 T: 104 INTERPRETIVE STATEMENTS: Sinus tachycardia Left axis deviation Left bundle branch block Abnormal ECG Compared to ECG 08/07/2022 20:06:08 Left-axis deviation now present Sinus rhythm no longer present Electronically Signed On 08-29-22 11:43:55 CDT by Preston Tubbs
--- NOTE | 2022-08-29 13:32 | ECHO ---
HEIGHT: 4 ft 9 in WEIGHT: 140 lb 0 oz DATE OF STUDY: 08/29/[address]: Chantale Garcia MD 2-DIMENSIONAL: YES M.MODE: YES DOPPLER: YES COLOR FLOW: YES TDS: PORTABLE: YES DEFINITY: BUBBLE STUDY: DIAGNOSIS: CONGESTIVE HEART FAILURE CARDIAC HISTORY: CATHERIZATION: SURGERY: PROSTHETIC VALVE: PACEMAKER: MEASUREMENTS (cm) DIASTOLIC (NORMALS) SYSTOLIC (NORMALS) IVSd 0.9 (0.6-1.2) LA Diam 3.0 (1.9-4.0) LVEF 39% LVIDd 4.5 (3.5-5.7) LVIDs 3.7 (2.0-3.5) %FS 19% LVPWd 1.0 (0.6-1.2) Ao Diam 2.7 (2.0-3.7) 2 DIMENSIONAL ASSESSMENT: RIGHT ATRIUM: NORMAL LEFT ATRIUM: NORMAL RIGHT VENTRICLE: NORMAL LEFT VENTRICLE: DEPRESSED EJECTION FRACTION TRICUSPID VALVE: TRACE TRICUSPID REGURGITATION MITRAL VALVE: NORMAL PULMONIC VALVE: NORMAL AORTIC VALVE: MILD AORTIC INSUFFICIENCY PERICARDIAL EFFUSION: NONE AORTIC ROOT: NORMAL LEFT VENTRICULAR WALL MOTION: ANTEROSEPTAL/ ANTERIOR HYPOKINESIS DOPPLER/COLOR FLOW: SEE BELOW COMMENTS: 1. MODERATELY DEPRESSED LEFT VENTRICULAR EJECTION FRACTION 35-40% 2. ANTERIOR/ ANTEROSEPTAL HYPOKINESIS 3. TRACE TRICUSPID REGURGITATION 4. MILD AORTIC INSUFFICIENCY 5. DIASTOLIC DYSFUNCTION TECHNOLOGIST: SONIA MORALES
[2022-08-29 13:48] VITALS: BP 143/60
--- NOTE | 2022-08-29 18:26 | CON ---
Date of Consultation: 08/28/2022 Reason For Consultation: CHF exacerbation. History Of Present Illness: This is an 87-year-old female, presented to the emergency room with resp iratory distress, blood pressure was high in the 180s range, very short of breath, found to have pulm onary edema, started on IV Lasix, and she received BiPAP for a brief of time and after IV diuresis, t he patient started feeling better, but as per her son, she has been having some chest pain. Troponin was slightly elevated. Past Medical History: As outlined above in the HPI. She has history of hypertension, dyslipidemia, CVA. Medications: Refer to reconciliation sheet for detailed list. Allergies: NO KNOWN DRUG ALLERGIES. Family History: No premature coronary artery disease or cancer. Social History: She does not smoke or drink. Does not use any drugs. Review of Systems: All systems reviewed and they were negative except what mentioned in HPI. Physical Examination: Vital Signs: Reviewed. Head and Neck: Pupils are equal, reactive to light. Intact eye movements. Positive JVD. No cervic al lymphadenopathy. Neck is supple. Thyroid is not enlarged. Lungs: Clear to auscultation bilaterally. No rhonchi, wheezing, or crackles. No accessory muscle u se. Heart: Regular rate and rhythm. No extra sounds. Abdomen: Soft, nontender. Bowel sounds positive. No organomegaly. No masses or hernia. No rigidi ty or rebound. Extremities: No clubbing or cyanosis. Intact pulses. Trace edema. Skin: No rash. Neurologic: Alert, awake, oriented x3. No acute focal deficits appreciated. Investigations: BUN 14, creatinine 0.96. Troponin 386. Hemoglobin is 12.4. Assessment And Recommendations: 1.Acute on chronic heart failure exacerbation. Agree with IV Lasix. Monitor BUN, creatinine, and e lectrolytes. 2.Elevated troponin with chest pain. This could be acute coronary syndrome. Plan for coronary moises ogram during this hospital stay once the heart failure is under good control. Recommend daily aspiri n and anticoagulation with Lovenox pending heart catheterization and obtain echo in the morning. SR/MODL Voice ID: [id number] Report ID: [id number]
== END 2022-08-29 17:00 | disposition home or self-care (01) | DRG 280 ==
LOC: ER 05:07 → ERHOLD 07:59 → 2ND 10:04
PROVIDERS: ADMIT Hospitalist; ATTEND Hospitalist
PROC: 5A09457 Assistance with Respiratory Ventilation, 24-96 Consecutive Hours, Continuous Positive Airway Pressure (ICD-10-PCS; principal; 2022-08-28)
DX: I11.0 Hypertensive heart disease with heart failure (principal); I50.33 Acute on chronic diastolic (congestive) heart failure; I21.4 Non-ST elevation (NSTEMI) myocardial infarction; J96.01 Acute respiratory failure with hypoxia; E78.5 Hyperlipidemia, unspecified; J45.909 Unspecified asthma, uncomplicated; Z90.49 Acquired absence of other specified parts of digestive tract; Z86.73 Personal history of transient ischemic attack (TIA), and cerebral infarction without residual deficits; Z79.82 Long term (current) use of aspirin; Z79.02 Long term (current) use of antithrombotics/antiplatelets; Z79.899 Other long term (current) drug therapy; Z90.710 Acquired absence of both cervix and uterus
CPT/HCPCS: 36415; 36600; 51702; 71045; 80048; 80053; 80076; 82805; 83735; 83880; 84484; 85025; 93005; 93306; 94660; 96374; 99285; J1940; J7613; J7644

== ENCOUNTER 2022-11-01 10:04 | Observation (INO) | payer OTHER ==
--- OUTSIDE RECORDS SUMMARY | 2022-11-01 10:31 | XMS REPORT | Continuity of Care Document ---
:1935 Author Organization [facility] t Address [address] [place] [address] Care Team Providers Name Role Phone ANGELA CUNNINGHAM Primary Care Physician Unavailable LILIANA LI Attending Clinician Unavailable CECI LO K.HGertrude Attending Clinician Unavailable JOHNNIE FINNEY Attending Clinician Unavailable ANGELA CUNNINGHAM Attending Clinician Unavailable ANGELA CUNNINGHAM Attending Clinician Unavailable Ceci Lo MDHGertrude Attending Clinician 2, [facility] Attending Clinician Unavailable WON MATT Attending Clinician Unavailable WON MATT Attending Clinician Unavailable Lab, Thom [facility]aver Attending Clinician Unavailable Doctor Unassigned, [place] Attending Clinician Unavailable Pob, [facility] Main [...] Ang Db Test Attending Clinician Unavailable Green ELECTRIC DOLLY OPERATOR, Tera Attending Clinician TERA MORALES Attending Clinician Unavailable KALYN PARADA Attending Clinician Unavailable Aneesme ELECTRIC DOLLY OPERATOR, Amaya Attending Clinician Randal MURGUIA, Gerardo Attending Clinician Cristobal PALAFOX, Pamela Roman Attending Clinician Unavailable Joce MURGUIA, Austin Goyal Attending Clinician AUSTIN HOBSON Attending Clinician Unavailable JESSICA DON Attending Clinician Unavailable AMAYA RUSS Attending Clinician Unavailable Jessica Alvarez R Attending Clinician Vaccine, Ang Db Cbc Fam Attending Clinician Unavailable Lab, [facility] Fam Pob I Attending Clinician Unavailable Beto MURGUIA, Daniel Attending Clinician Provider, [facility] Attending Clinician Unavailable Mine Blair Attending Clinician MINE NO Attending Clinician Unavailable Ethan Scott DO Attending Clinician 1, [facility] Attending Clinician Unavailable Renata Thacker Attending Clinician Unavailable Mirella Villalobos Attending Clinician [phone] Shy Miller Attending Clinician Unavailable LILIANA LI Admitting Clinician Unavailable BOB HUI Admitting Clinician Unavailable WON MATT Admitting Clinician Unavailable AUSTIN HOBSON Admitting Clinician Unavailable ADRIANA HARTMANN Admitting Clinician Unavailable Payers Payer Name Policy Type Policy Number Effective Date Expiration Date S kim AARP/MEDICARE [id number] 2019 COMPLETE 00:00:00 MARTIN/AARP [id number] 2019 MEDICARE 00:00:00 ADVANTAGE [place]ICA[place] [id number] 2017 [place] 00:[place]00 [facility] [id number] 2019 2020 [facility] - 00:00:00 00:00:00 Community MEDICARE [...] Medical Branch Uses Uses Disease Active Univers Citizen [place] as 5-28 it y of primary primary [...] impairment impairment 9-25 it y of 00:00: [place] [facility] Hair loss Hair loss Disease Active Uni vers 9-25 ity of 00:00: [place] [facility] COVID-19 COVID-19 Disease Active Unive rs virus virus 7-20 [place] of infection [place] 00:[place] [facility] [place] GERD GERD Disease Active Univers (gastroeso (gastroeso 7-20 it y of phageal phageal 00:00: [place] reflux reflux Medical disease) disease) Branch Neuropathy Neuropathy Disease Active U nivers of both of both 7-20 ity of feet feet 00:00: [place] [facility] Abdominal Abdominal Disease Active [facility] [place] [address] Center Sepsis Sepsis Disease Recurre [facility] 00:00: [facility] Center Hypertensi Hypertensi Disease Active [facility] 00:00: [facility] Center Ureteropel Ureteropel Disease Active U nivers bessie bessie 5-25 ity of junction junction 00:00: [place] (UPJ) (UPJ) 00 Medical obstructio obstructio Br anch n, left n, left Bilateral Bilateral Disease Active 2018-02 Uni vers foot pain foot pain 1-26 ity of 00:00: [place] [facility] Kidney Kidney Disease Active 2017-02 Univers stone stone 0-15 ity of 00:00: [place] [facility] Abnormal Abnormal Disease Active 2017-02 Overview: Un briana liver liver 0-15 Formatt[place] ity of ultrasound ultrasound 00:00: g of this 00 note Medical might be Branch different from the original. Likely hepatic steatosis with focal areas of fatty sparing Weakness Weakness Disease Active Unive rs 4-25 ity of 00:00: [place] [facility] 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 0-05 it y of 2 diabetes 2 diabetes [place] mellitus mellitus 00 Medica l Branch Essential Essential Disease Active 2016-02 Uni vers hypertensi hypertensi 0-02 it y of on on 00:00: [place] [facility] HLD HLD Disease Active 2017-1 Univers (hyperlipi (hyperlipi 0-02 it y of demia) demia) 00:00: [place] 00 Medical Branch History of History of Disease Active 2016-02 U nivers chest pain chest pain 0-02 it y of 00:00: [address] Palpitatio Palpitatio Disease Active 2016-02 U nivers ns ns 0-02 ity of 00:00: [address] Osteoporos Osteoporos Disease Active U nivers is is ity [facility] Abnormal Abnormal Disease Active Unive rs EKG EKG ity of [facility] Allergies, Adverse Reactions, Alerts Allergy Allergy Status Severity Reaction(s) Onset Inactive Treating Comm ents Source Name Type Date Date Clinician NO KNOWN Drug Active Univers ALLERGIE Class ity of [facility] NO KNOWN Allergy Active [facility] Social History Social Habit Start Date Stop Date Quantity Comments Source History SDOH [facility] Alcohol Std Drinks Medica l Center History SDOH [facility] Alcohol Binge Medical Marilyn ter History SDOH [facility] Alcohol Comment Medical C enter Gender identity Universit y of [facility] to 2022-07-02 2022-07-12 Not sure [facility] SARS-CoV-2 (event) 00:00:00 14:22:00 [facility] History of Social 2022-06-09 2022-06-09 Univers ity of function 00:00:00 00:00:00 [facility] Tobacco use and 2021-08-27 2021-08-27 Smokeless Universit y of exposure 00:00:00 00:00:00 tobacco non-user [facility] Alcohol intake 2019-07-12 2019-07-[address] [facility] es 00:00:00 00:00:00 non-drinker of Medical Ce nter alcohol (finding) History SDOH 2019-07-10 2019-07-[address] [facility] Alcohol Frequency 00:00:00 00:00:00 [facility] Sex Assigned At [address] [facility] kes 00:00:00 00:00:00 [facility] Center Smoking Status Start Date Stop Date Source Never smoked tobacco [facility] Medications Ordered Filled Start Stop Current Ordering Indication Dosage Frequency Signature Comments Components Source Medication Medication Date Date Medication? Clinician (SIG) Name Name ipratropium 2023-0 Yes [id number] .5mg Inhale 2.5 Univers 0.02 % 8-17 mL every 6 ity of nebulizer 00:00: (six) [place] solution 00 hours as Medical needed for Branch Wheezing or Shortness of Breath. ipratropium 2023-0 Yes [id number] .5mg Inhale 2.5 Univers 0.02 % 8-17 mL every 6 ity of nebulizer 00:00: (six) [place] solution 00 hours as Medical needed for Branch Wheezing or Shortness of Breath. ipratropium 2023-0 Yes [id number] .5mg Inhale 2.5 Univers 0.02 % 8-17 mL every 6 ity of nebulizer 00:00: (six) [place] solution 00 hours as Medical needed for Branch Wheezing or Shortness of Breath. ipratropium 2023-0 Yes [id number] .5mg Inhale 2.5 Univers 0.02 % 8-17 mL every 6 ity of nebulizer 00:00: (six) [place] solution 00 hours as Medical needed for Branch Wheezing or Shortness of Breath. ipratropium 2023-0 Yes [id number] .5mg Inhale 2.5 Univers 0.02 % 8-17 mL every 6 ity of nebulizer 00:00: (six) [place] solution 00 hours as Medical needed for Branch Wheezing or Shortness of Breath. Nut.[place].Gluc 2022-0 Yes [id number] 1{box} Take 1 Box Univers .Intol,Lac- 7-27 by mouth 2 it y of Free,Soy 00:00: (two) [place] (GLUCERNA 00 times Medical THERAPEUTIC daily. Branch NUTRITION) liquid Nut.[place].Gluc 2022-0 Yes [id number] 1{box} Take 1 Box Univers .Intol,Lac- 7-27 by mouth 2 it y of Free,Soy 00:00: (two) [place] (GLUCERNA 00 times Medical THERAPEUTIC daily. Branch NUTRITION) liquid Nut.[place].Gluc 2022-0 Yes [id number] 1{box} Take 1 Box Univers .Intol,Lac- 7-27 by mouth 2 it y of Free,Soy 00:00: (two) [place] (GLUCERNA 00 times Medical THERAPEUTIC daily. Branch NUTRITION) liquid Nut.[place].Gluc 2022-0 Yes [id number] 1{box} Take 1 Box Univers .Intol,Lac- 7-27 by mouth 2 it y of Free,Soy 00:00: (two) [place] (GLUCERNA 00 times Medical THERAPEUTIC daily. Branch NUTRITION) liquid Nut.[place].Gluc 2022-0 Yes [id number] 1{box} Take 1 Box Univers .Intol,Lac- 7-27 by mouth 2 it y of Free,Soy 00:00: (two) [place] (GLUCERNA 00 times Medical THERAPEUTIC daily. Branch NUTRITION) liquid Nut.[place].Gluc 2022-0 Yes [id number] 1{box} Take 1 Box Univers .Intol,Lac- 7-27 by mouth 2 it y of Free,Soy 00:00: (two) [place] (GLUCERNA 00 times Medical THERAPEUTIC daily. Branch NUTRITION) liquid Nut.[place].Gluc 0 Yes [id number] 1{box} Take 1 Box Univers .Intol,Lac- 7-27 by mouth 2 it y of Free,Soy 00:00: (two) [place] (GLUCERNA 00 times Medical THERAPEUTIC daily. Branch NUTRITION) liquid Nut.[place].Gluc 0 Yes [id number] 1{box} Take 1 Box Univers .Intol,Lac- 7-27 by mouth 2 it y of Free,Soy 00:00: (two) [place] (GLUCERNA 00 times Medical THERAPEUTIC daily. Branch NUTRITION) liquid Nut.[place].Gluc 0 Yes [id number] 1{box} Take 1 Box Univers .Intol,Lac- 7-27 by mouth 2 it y of Free,Soy 00:00: (two) [place] (GLUCERNA 00 times Medical THERAPEUTIC daily. Branch NUTRITION) liquid Nut.[place].Gluc 0 Yes [id number] 1{box} Take 1 Box Univers .Intol,Lac- 7-27 by mouth 2 it y of Free,Soy 00:00: (two) [place] (GLUCERNA 00 times Medical THERAPEUTIC daily. Branch NUTRITION) liquid Nut.[place].Gluc 2022-0 Yes [id number] 1{box} Take 1 Box Univers .Intol,Lac- 7-27 by mouth 2 it y of Free,Soy 00:00: (two) [place] (GLUCERNA 00 times Medical THERAPEUTIC daily. Branch NUTRITION) liquid Nut.[place].Gluc 2022-0 Yes [id number] 1{box} Take 1 Box Univers .Intol,Lac- 7-27 by mouth 2 it y of Free,Soy 00:00: (two) [place] (GLUCERNA 00 times Medical THERAPEUTIC daily. Branch NUTRITION) liquid spironolact 2023-0 Yes 12.5mg Take 0.5 Univers one 25 mg 7-18 tablets by ity of tablet 00:00: mouth 2 (two) Medical times Branch daily. spironolact 2023-0 Yes 12.5mg Take 0.5 Univers one 25 mg 7-18 tablets by ity of tablet 00:00: mouth 2 (two) Medical times Branch daily. spironolact 2023-0 Yes 12.5mg Take 0.5 Univers one 25 mg 7-18 tablets by ity of tablet 00:00: mouth 2 (two) Medical times Branch daily. spironolact 2023-0 Yes 12.5mg Take 0.5 Univers one 25 mg 7-18 tablets by ity of tablet 00:00: mouth 2 (two) Medical times Branch daily. spironolact 2023-0 Yes 12.5mg Take 0.5 Univers one 25 mg 7-18 tablets by ity of tablet 00:00: mouth (two) Medical times Branch daily. spironolact 2023-0 Yes 12.5mg Take 0.5 Univers one 25 mg 7-18 tablets by ity of tablet 00:00: mouth (two) Medical times Branch daily. albuterol 2023-0 Yes [id number] 2.5mg Inhale 3 Univers 2.5 mg /3 6-27 mL every 8 ity of mL (0.083 00:00: (eight) [place] %) 00 hours as Medical nebulizer needed for Bran ch solution Wheezing or Shortness of Breath. ipratropium 2023-0 Yes [id number] .5mg Inhale 2.5 Univers 0.02 % 6-27 mL every 6 ity of nebulizer 00:00: (six) [place] solution 00 hours as Medical needed for Branch Wheezing or Shortness of Breath. furosemide 2023-0 Yes [id number] 80mg Take 2 Univers 40 mg 6-27 tablets by ity of tablet 00:00: mouth [place] 00 every Medical morning Branch and evening. benzonatate 2023-0 Yes [id number] 200mg Take 1 Univers 200 mg 6-27 capsule by ity of capsule 00:00: mouth 3 [place] 00 (three) Medical times Branch daily as needed for Cough. ferrous 2022-0 Yes [id number] 324mg Take 1 Un briana sulfate 324 6-27 tablet by ity of mg (65 mg 00:00: mouth [place] iron) EC 00 daily with Medic al tablet breakfast. Branch albuterol 2022-0 Yes [id number] 2.5mg Inhale 3 Univers 2.5 mg /3 6-27 mL every 8 ity of mL (0.083 00:00: (eight) [place] %) 00 hours as Medical nebulizer needed for Bran ch solution Wheezing or Shortness of Breath. ipratropium 2022-0 Yes [id number] .5mg Inhale 2.5 Univers 0.02 % 6-27 mL every 6 ity of nebulizer 00:00: (six) [place] solution 00 hours as Medical needed for Branch Wheezing or Shortness of Breath. furosemide 2022-0 Yes [id number] 80mg Take 2 Univers 40 mg 6-27 tablets by ity of tablet 00:00: mouth [place] 00 every Medical morning Branch and evening. benzonatate 2022-0 Yes [id number] 200mg Take 1 Univers 200 mg 6-27 capsule by ity of capsule 00:00: mouth 3 [place] 00 (three) Medical times Branch daily as needed for Cough. ferrous 2022-0 Yes [id number] 324mg Take 1 Un briana sulfate 324 6-27 tablet by ity of mg (65 mg 00:00: mouth [place] iron) EC 00 daily with Medic al tablet breakfast. Branch albuterol 2022-0 Yes [id number] 2.5mg Inhale 3 Univers 2.5 mg /3 6-27 mL every 8 ity of mL (0.083 00:00: (eight) [place] %) 00 hours as Medical nebulizer needed for Bran ch solution Wheezing or Shortness of Breath. ipratropium 2022-0 Yes [id number] .5mg Inhale 2.5 Univers 0.02 % 6-27 mL every 6 ity of nebulizer 00:00: (six) [place] solution 00 hours as Medical needed for Branch Wheezing or Shortness of Breath. furosemide 2022-0 Yes [id number] 80mg Take 2 Univers 40 mg 6-27 tablets by ity of tablet 00:00: mouth [place] 00 every Medical morning Branch and evening. benzonatate 2023-0 Yes [id number] 200mg Take 1 Univers 200 mg 6-27 capsule by ity of capsule 00:00: mouth 3 [place] 00 (three) Medical times Branch daily as needed for Cough. ferrous 2022-0 Yes [id number] 324mg Take 1 Un briana sulfate 324 6-27 tablet by ity of mg (65 mg 00:00: mouth [place] iron) EC 00 daily with Medic al tablet breakfast. Branch albuterol 2022-0 Yes [id number] 2.5mg Inhale 3 Univers 2.5 mg /3 6-27 mL every 8 ity of mL (0.083 00:00: (eight) [place] %) 00 hours as Medical nebulizer needed for Bran ch solution Wheezing or Shortness of Breath. ipratropium 2022-0 Yes [id number] .5mg Inhale 2.5 Univers 0.02 % 6-27 mL every 6 ity of nebulizer 00:00: (six) [place] solution 00 hours as Medical needed for Branch Wheezing or Shortness of Breath. furosemide 2022-0 Yes [id number] 80mg Take 2 Univers 40 mg 6-27 tablets by ity of tablet 00:00: mouth [place] 00 every Medical morning Branch and evening. benzonatate 2022-0 Yes [id number] 200mg Take 1 Univers 200 mg 6-27 capsule by ity of capsule 00:00: mouth 3 [place] 00 (three) Medical times Branch daily as needed for Cough. ferrous 2022-0 Yes [id number] 324mg Take 1 Un briana sulfate 324 6-27 tablet by ity of mg (65 mg 00:00: mouth [place] iron) EC 00 daily with Medic al tablet breakfast. Branch albuterol 2022-0 Yes [id number] 2.5mg Inhale 3 Univers 2.5 mg /3 6-27 mL every 8 ity of mL (0.083 00:00: (eight) [place] %) 00 hours as Medical nebulizer needed for Bran ch solution Wheezing or Shortness of Breath. ipratropium 3-0 Yes [id number] .5mg Inhale 2.5 Univers 0.02 % 6-27 mL every 6 ity of nebulizer 00:00: (six) [place] solution 00 hours as Medical needed for Branch Wheezing or Shortness of Breath. furosemide 2022-0 Yes [id number] 80mg Take 2 Univers 40 mg 6-27 tablets by ity of tablet 00:00: mouth [place] 00 every Medical morning Branch and evening. benzonatate 2022-0 Yes [id number] 200mg Take 1 Univers 200 mg 6-27 capsule by ity of capsule 00:00: mouth 3 [place] 00 (three) Medical times Branch daily as needed for Cough. ferrous 2022-0 Yes [id number] 324mg Take 1 Un briana sulfate 324 6-27 tablet by ity of mg (65 mg 00:00: mouth [place] iron) EC 00 daily with Medic al tablet breakfast. Branch albuterol 2022-0 Yes [id number] 2.5mg Inhale 3 Univers 2.5 mg /3 6-27 mL every 8 ity of mL (0.083 00:00: (eight) [place] %) 00 hours as Medical nebulizer needed for Bran ch solution Wheezing or Shortness of Breath. ipratropium 2022-0 Yes [id number] .5mg Inhale 2.5 Univers 0.02 % 6-27 mL every 6 ity of nebulizer 00:00: (six) [place] solution 00 hours as Medical needed for Branch Wheezing or Shortness of Breath. furosemide 2022-0 Yes [id number] 80mg Take 2 Univers 40 mg 6-27 tablets by ity of tablet 00:00: mouth [place] 00 every Medical morning Branch and evening. benzonatate 2022-0 Yes [id number] 200mg Take 1 Univers 200 mg 6-27 capsule by ity of capsule 00:00: mouth 3 [place] 00 (three) Medical times Branch daily as needed for Cough. ferrous 2022-0 Yes [id number] 324mg Take 1 Un briana sulfate 324 6-27 tablet by ity of mg (65 mg 00:00: mouth [place] iron) EC 00 daily with Medic al tablet breakfast. Branch albuterol 2022-0 Yes [id number] 2.5mg Inhale 3 Univers 2.5 mg /3 6-27 mL every 8 ity of mL (0.083 00:00: (eight) [place] %) 00 hours as Medical nebulizer needed for Bran ch solution Wheezing or Shortness of Breath. ipratropium 2022-0 Yes [id number] .5mg Inhale 2.5 Univers 0.02 % 6-27 mL every 6 ity of nebulizer 00:00: (six) [place] solution 00 hours as Medical needed for Branch Wheezing or Shortness of Breath. furosemide 2022-0 Yes [id number] 80mg Take 2 Univers 40 mg 6-27 tablets by ity of tablet 00:00: mouth [place] 00 every Medical morning Branch and evening. benzonatate 2022-0 Yes [id number] 200mg Take 1 Univers 200 mg 6-27 capsule by ity of capsule 00:00: mouth 3 [place] 00 (three) Medical times Branch daily as needed for Cough. ferrous 2022-0 Yes [id number] 324mg Take 1 Un briana sulfate 324 6-27 tablet by ity of mg (65 mg 00:00: mouth [place] iron) EC 00 daily with Medic al tablet breakfast. Branch albuterol 2022-0 Yes [id number] 2.5mg Inhale 3 Univers 2.5 mg /3 6-27 mL every 8 ity of mL (0.083 00:00: (eight) [place] %) 00 hours as Medical nebulizer needed for Bran ch solution Wheezing or Shortness of Breath. ipratropium 2022-0 Yes [id number] .5mg Inhale 2.5 Univers 0.02 % 6-27 mL every 6 ity of nebulizer 00:00: (six) [place] solution 00 hours as Medical needed for Branch Wheezing or Shortness of Breath. furosemide 2022-0 Yes [id number] 80mg Take 2 Univers 40 mg 6-27 tablets by ity of tablet 00:00: mouth [place] 00 every Medical morning Branch and evening. benzonatate 2022-0 Yes [id number] 200mg Take 1 Univers 200 mg 6-27 capsule by ity of capsule 00:00: mouth 3 [place] 00 (three) Medical times Branch daily as needed for Cough. ferrous 2022-0 Yes [id number] 324mg Take 1 Un briana sulfate 324 6-27 tablet by ity of mg (65 mg 00:00: mouth [place] iron) EC 00 daily with Medic al tablet breakfast. Branch albuterol 2022-0 Yes [id number] 2.5mg Inhale 3 Univers 2.5 mg /3 6-27 mL every 8 ity of mL (0.083 00:00: (eight) [place] %) 00 hours as Medical nebulizer needed for Bran ch solution Wheezing or Shortness of Breath. ipratropium 3-0 Yes [id number] .5mg Inhale 2.5 Univers 0.02 % 6-27 mL every 6 ity of nebulizer 00:00: (six) [place] solution 00 hours as Medical needed for Branch Wheezing or Shortness of Breath. furosemide 2022-0 Yes [id number] 80mg Take 2 Univers 40 mg 6-27 tablets by ity of tablet 00:00: mouth [place] 00 every Medical morning Branch and evening. benzonatate 2022-0 Yes [id number] 200mg Take 1 Univers 200 mg 6-27 capsule by ity of capsule 00:00: mouth 3 [place] 00 (three) Medical times Branch daily as needed for Cough. ferrous 2022-0 Yes [id number] 324mg Take 1 Un briana sulfate 324 6-27 tablet by ity of mg (65 mg 00:00: mouth [place] iron) EC 00 daily with Medic al tablet breakfast. Branch albuterol 2022-0 Yes [id number] 2.5mg Inhale 3 Univers 2.5 mg /3 6-27 mL every 8 ity of mL (0.083 00:00: (eight) [place] %) 00 hours as Medical nebulizer needed for Bran ch solution Wheezing or Shortness of Breath. furosemide 2022-0 Yes [id number] 80mg Take 2 Univers 40 mg 6-27 tablets by ity of tablet 00:00: mouth [place] 00 every Medical morning Branch and evening. benzonatate 2022-0 Yes [id number] 200mg Take 1 Univers 200 mg 6-27 capsule by ity of capsule 00:00: mouth 3 [place] 00 (three) Medical times Branch daily as needed for Cough. ferrous 2022-0 Yes [id number] 324mg Take 1 Un briana sulfate 324 6-27 tablet by ity of mg (65 mg 00:00: mouth [place] iron) EC 00 daily with Medic al tablet breakfast. Branch albuterol 2022-0 Yes [id number] 2.5mg Inhale 3 Univers 2.5 mg /3 6-27 mL every 8 ity of mL (0.083 00:00: (eight) [place] %) 00 hours as Medical nebulizer needed for Bran ch solution Wheezing or Shortness of Breath. furosemide 2022-0 Yes [id number] 80mg Take 2 Univers 40 mg 6-27 tablets by ity of tablet 00:00: mouth [place] 00 every Medical morning Branch and evening. benzonatate 2022-0 Yes [id number] 200mg Take 1 Univers 200 mg 6-27 capsule by ity of capsule 00:00: mouth 3 [place] 00 (three) Medical times Branch daily as needed for Cough. ferrous 2022-0 Yes [id number] 324mg Take 1 Un briana sulfate 324 6-27 tablet by ity of mg (65 mg 00:00: mouth [place] iron) EC 00 daily with Medic al tablet breakfast. Branch albuterol 2022-0 Yes [id number] 2.5mg Inhale 3 Univers 2.5 mg /3 6-27 mL every 8 ity of mL (0.083 00:00: (eight) [place] %) 00 hours as Medical nebulizer needed for Bran ch solution Wheezing or Shortness of Breath. furosemide 2022-0 Yes [id number] 80mg Take 2 Univers 40 mg 6-27 tablets by ity of tablet 00:00: mouth [place] 00 every Medical morning Branch and evening. benzonatate 2022-0 Yes [id number] 200mg Take 1 Univers 200 mg 6-27 capsule by ity of capsule 00:00: mouth 3 [place] 00 (three) Medical times Branch daily as needed for Cough. ferrous 2022-0 Yes [id number] 324mg Take 1 Un briana sulfate 324 6-27 tablet by ity of mg (65 mg 00:00: mouth [place] iron) EC 00 daily with Medic al tablet breakfast. Branch albuterol 2022-0 Yes [id number] 2.5mg Inhale 3 Univers 2.5 mg /3 6-27 mL every 8 ity of mL (0.083 00:00: (eight) [place] %) 00 hours as Medical nebulizer needed for Bran ch solution Wheezing or Shortness of Breath. furosemide 2022-0 Yes [id number] 80mg Take 2 Univers 40 mg 6-27 tablets by ity of tablet 00:00: mouth [place] 00 every Medical morning Branch and evening. benzonatate 2022-0 Yes [id number] 200mg Take 1 Univers 200 mg 6-27 capsule by ity of capsule 00:00: mouth 3 [place] 00 (three) Medical times Branch daily as needed for Cough. ferrous 2022-0 Yes [id number] 324mg Take 1 Un briana sulfate 324 6-27 tablet by ity of mg (65 mg 00:00: mouth [place] iron) EC 00 daily with Medic al tablet breakfast. Branch albuterol 2022-0 Yes [id number] 2.5mg Inhale 3 Univers 2.5 mg /3 6-27 mL every 8 ity of mL (0.083 00:00: (eight) [place] %) 00 hours as Medical nebulizer needed for Bran ch solution Wheezing or Shortness of Breath. furosemide 2022-0 Yes [id number] 80mg Take 2 Univers 40 mg 6-27 tablets by ity of tablet 00:00: mouth [place] 00 every Medical morning Branch and evening. benzonatate 2022-0 Yes [id number] 200mg Take 1 Univers 200 mg 6-27 capsule by ity of capsule 00:00: mouth 3 [place] 00 (three) Medical times Branch daily as needed for Cough. ferrous 2022-0 Yes [id number] 324mg Take 1 Un briana sulfate 324 6-27 tablet by ity of mg (65 mg 00:00: mouth [place] iron) EC 00 daily with Medic al tablet breakfast. Branch albuterol 2022-0 Yes [id number] 2.5mg Inhale 3 Univers 2.5 mg /3 6-27 mL every 8 ity of mL (0.083 00:00: (eight) [place] %) 00 hours as Medical nebulizer needed for Bran ch solution Wheezing or Shortness of Breath. furosemide 2022-0 Yes [id number] 80mg Take 2 Univers 40 mg 6-27 tablets by ity of tablet 00:00: mouth [place] 00 every Medical morning Branch and evening. benzonatate 2022-0 Yes [id number] 200mg Take 1 Univers 200 mg 6-27 capsule by ity of capsule 00:00: mouth 3 [place] 00 (three) Medical times Branch daily as needed for Cough. ferrous 2022-0 Yes [id number] 324mg Take 1 Un briana sulfate 324 6-27 tablet by ity of mg (65 mg 00:00: mouth [place] iron) EC 00 daily with Medic al tablet breakfast. Branch albuterol 2022-0 Yes [id number] 2.5mg Inhale 3 Univers 2.5 mg /3 6-27 mL every 8 ity of mL (0.083 00:00: (eight) [place] %) 00 hours as Medical nebulizer needed for Bran ch solution Wheezing or Shortness of Breath. furosemide 2022-0 Yes [id number] 80mg Take 2 Univers 40 mg 6-27 tablets by ity of tablet 00:00: mouth [place] 00 every Medical morning Branch and evening. benzonatate Yes [id number] 200mg Take 1 Univers 200 mg 6-27 capsule by ity of capsule 00:00: mouth 3 [place] 00 (three) Medical times Branch daily as needed for Cough. ferrous Yes [id number] 324mg Take 1 Un briana sulfate 324 6-27 tablet by ity of mg (65 mg 00:00: mouth [place] iron) EC 00 daily with Medic al tablet breakfast. Branch carvediloL 2022- Yes 3.125mg Take 1 U nivers 3.125 mg 6-27 09-26 tablet by ity o f tablet 00:00: 04:59 mouth 2 [place] 00 :00 (two) Medical times Branch daily with meals for 90 days. carvediloL 2022- Yes 3.125mg Take 1 [facility] 3.125 mg 6-27 09-26 tablet by [facility] o f tablet 00:00: 04:59 mouth 2 [place] 00 :00 (two) Medical times Branch daily with meals for 90 days. carvediloL 2022- Yes 3.125mg Take 1 [facility] 3.125 mg 6-27 09-26 tablet by ity o f tablet 00:00: 04:59 mouth 2 [place] 00 :00 (two) Medical times Branch daily with meals for 90 days. carvediloL 2022- Yes 3.125mg Take 1 [facility] 3.125 mg 6-27 09-26 tablet by ity o f tablet 00:00: 04:59 mouth 2 [place] 00 :00 (two) Medical times Branch daily with meals for 90 days. carvediloL 2022- Yes 3.125mg Take 1 [facility] 3.125 mg 6-27 09-26 tablet by ity o f tablet 00:00: 04:59 mouth 2 [place] 00 :00 (two) Medical times Branch daily with meals for 90 days. carvediloL 2022- Yes 3.125mg Take 1 [facility] 3.125 mg 6-27 09-26 tablet by ity o f tablet 00:00: 04:59 mouth 2 [place] 00 :00 (two) Medical times Branch daily with meals for 90 days. carvediloL 2022- Yes 3.125mg Take 1 [facility] n[facility] 3.125 mg 6-27 09-26 tablet by ity o f tablet 00:00: 04:59 mouth 2 [place] 00 :00 (two) Medical times Branch daily with meals for 90 days. carvediloL 2022- Yes 3.125mg Take 1 [facility] 3.125 mg 6-27 09-26 tablet by ity o f tablet 00:00: 04:59 mouth 2 [place] 00 :00 (two) Medical times Branch daily with meals for 90 days. carvediloL 2022- Yes 3.125mg Take 1 [facility] 3.125 mg 6-27 09-26 tablet by ity o f tablet 00:00: 04:59 mouth 2 [place] 00 :00 (two) Medical times Branch daily with meals for 90 days. carvediloL 2022- Yes 3.125mg Take 1 [facility] 3.125 mg 6-27 09-26 tablet by ity o f tablet 00:00: 04:59 mouth 2 [place] 00 :00 (two) Medical times Branch daily with meals for 90 days. carvediloL 2022- Yes 3.125mg Take 1 [facility] 3.125 mg 6-27 09-26 tablet by ity o f tablet 00:00: 04:59 mouth 2 [place] 00 :00 (two) Medical times Branch daily with meals for 90 days. carvediloL 2022- Yes 3.125mg Take 1 [facility] 3.125 mg 6-27 09-26 tablet by ity o f tablet 00:00: 04:59 mouth 2 [place] 00 :00 (two) Medical times Branch daily with meals for 90 days. carvediloL 2022- Yes 3.125mg Take 1 [facility] 3.125 mg 6-27 09-26 tablet by ity o f tablet 00:00: 04:59 mouth 2 [place] 00 :00 (two) Medical times Branch daily with meals for 90 days. carvediloL 2022- Yes 3.125mg Take 1 [facility] 3.125 mg 6-27 09-26 tablet by ity o f tablet 00:00: 04:59 mouth 2 [place] 00 :00 (two) Medical times Branch daily with meals for 90 days. ipratropium 2023-0 2023- No [id number] .5mg Inhale 2.5 [facility] 0.02 % 6-27 08-17 mL every 6 ity of nebulizer 00:00: 00:00 (six) [place] solution 00 :00 hours as Medical needed for Branch Wheezing or Shortness of Breath. ipratropium 2023-0 2023- No [id number] .5mg Inhale 2.5 [facility] 0.02 % 6-27 08-17 mL every 6 ity of nebulizer 00:00: 00:00 (six) [place] solution 00 :00 hours as Medical needed for Branch Wheezing or Shortness of Breath. ipratropium 2023-0 2023- No [id number] .5mg Inhale 2.5 [facility] 0.02 % 6-27 08-17 mL every 6 ity of nebulizer 00:00: 00:00 (six) [place] solution 00 :00 hours as Medical needed for Branch Wheezing or Shortness of Breath. furosemide 2023-0 Yes [id number] 80mg Take 2 [facility] 40 mg 5-16 tablets by [facility] of tablet 00:00: mouth [place] 00 every Medical morning Branch and evening. furosemide 2023-0 Yes [id number] 80mg Take 2 [facility] 40 mg 5-16 tablets by [facility] of tablet 00:00: mouth [place] 00 every Medical morning Branch and evening. furosemide 2023-0 Yes [id number] 80mg Take 2 [facility] 40 mg 5-16 tablets by [facility] of tablet 00:00: mouth [place] 00 every Medical morning Branch and evening. furosemide 2023-0 Yes [id number] 80mg Take 2 [facility] 40 mg 5-16 tablets by it[facility] of tablet 00:00: mouth [place] 00 every Medical morning Branch and evening. furosemide 2023-0 Yes [id number] 80mg Take 2 [facility] 40 mg 5-16 tablets by [facility] of tablet 00:00: mouth [place] 00 every Medical morning Branch and evening. furosemide 2023-0 Yes [id number] 80mg Take 2 [facility] 40 mg 5-16 tablets by it[facility] of tablet 00:00: mouth [place] 00 every Medical morning Branch and evening. furosemide 2023-0 Yes [id number] 80mg Take 2 [facility] 40 mg 5-16 tablets by it[facility] of tablet 00:00: mouth [place] 00 every Medical morning Branch and evening. furosemide 2022-0 Yes [id number] 80mg Take 2 [facility] 40 mg 5-16 tablets by it[facility] of tablet 00:00: mouth [place] 00 every Medical morning Branch and evening. furosemide 2022-0 Yes [id number] 80mg Take 2 [facility] 40 mg 5-16 tablets by it[facility] of tablet 00:00: mouth [place] 00 every Medical morning Branch and evening. furosemide 2022-0 Yes [id number] 80mg Take 2 [facility] 40 mg 5-16 tablets by it[facility] of tablet 00:00: mouth [place] 00 every Medical morning Branch and evening. furosemide 2022-0 Yes [id number] 80mg Take 2 [facility] 40 mg 5-16 tablets by it[facility] of tablet 00:00: mouth [place] 00 every Medical morning Branch and evening. furosemide 2022-0 Yes [id number] 80mg Take 2 [facility] 40 mg 5-16 tablets by it[facility] of tablet 00:00: mouth [place] 00 every Medical morning Branch and evening. furosemide 2022-0 Yes [id number] 80mg Take 2 [facility] 40 mg 5-16 tablets by ity of tablet 00:00: mouth [place] 00 every Medical morning Branch and evening. furosemide 2022-0 Yes [id number] 80mg Take 2 [facility] 40 mg 5-16 tablets by ity of tablet 00:00: mouth [place] 00 every Medical morning Branch and evening. furosemide 2022-0 2022- No [id number] 80mg Take 2 [facility] 40 mg 5-16 06-27 tablets by ity of tablet 00:00: 00:00 mouth [place] 00 :00 every Medical morning Branch and evening. furosemide 2022-0 3- No [id number] 80mg Take 2 [facility] 40 mg 5-16 06-27 tablets by ity of tablet 00:00: 00:00 mouth [place] 00 :00 every Medical morning Branch and evening. furosemide 2022-0 3- No [id number] 80mg Take 2 [facility] 40 mg 5-16 06-27 tablets by ity of tablet 00:00: 00:00 mouth [place] 00 :00 every Medical morning Branch and evening. regadenoson 2022-0 3- No [id number] .4mg 0.4 mg, IV [facility] (LEXISCAN) 06-23 05-11 Push, it[facility] of injection 17:00: 15:51 ONCE, 1 [place] 0.[place] 00 :00 dose, On Medical [facility] 06/23/22 at 1200, Routine
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 Restricted medication : CECI LO tc 2022- No [id number] 43.8mCi 43.8 Unive rs 99m-tetrofo 06-23 [facility] 15:30: 15:19 , [place] ([facility]) 00 :00 Intravenou Medi angelica injection s, ONCE, 1 [facility] ch 43.8 dose, On [facility] 06/23/22 at 1030, Routine tc 2022- No [id number] 16.5mCi 16.5 Unive rs 99m-tetrofo 06-23 [facility] 13:45: 13:45 , [place] ([facility]) 00 :00 Intravenou Medi angelica injection s, ONCE, 1 [facility] ch 16.5 dose, On [facility] 06/23/22 at 0845, Routine furosemide 2022-0 Yes [id number] 80mg Take 2 [facility] 40 mg 5-09 tablets by ity of tablet 00:00: mouth [place] 00 every Medical morning Branch and evening. furosemide 2023-0 Yes [id number] 80mg Take 2 [facility] 40 mg 5-09 tablets by ity of tablet 00:00: mouth [place] 00 every Medical morning Branch and evening. furosemide 2023-0 Yes [id number] 80mg Take 2 [facility] 40 mg 5-09 tablets by ity of tablet 00:00: mouth [place] 00 every Medical morning Branch and evening. furosemide 2023-0 Yes [id number] 80mg Take 2 [facility] 40 mg 5-09 tablets by ity of tablet 00:00: mouth [place] 00 every Medical morning Branch and evening. furosemide 2023-0 Yes [id number] 80mg Take 2 [facility] 40 mg 5-09 tablets by ity of tablet 00:00: mouth [place] 00 every Medical morning Branch and evening. furosemide 2023-0 Yes [id number] 80mg Take 2 [facility] 40 mg 5-09 tablets by ity of tablet 00:00: mouth [place] 00 every Medical morning Branch and evening. furosemide 2023-0 2023- No [id number] 80mg Take 2 [facility] 40 mg 5-09 05-16 tablets by ity of tablet 00:00: 00:00 mouth [place] 00 :00 every Medical morning Branch and evening. furosemide 2022-0 3- No [id number] 80mg Take 2 [facility] 40 mg 5-09 05-16 tablets by ity of tablet 00:00: 00:00 mouth [place] 00 :00 every Medical morning Branch and evening. atorvastati 2022-0 Yes [id number] 20mg Take 1 [facility] n 20 mg 4-28 tablet by ity of tablet 00:00: mouth at [place] 00 bedtime. Medical Branch furosemide 2022-0 Yes [id number] 40mg Take 1 [facility] 40 mg 4-28 tablet by ity of tablet 00:00: mouth [place] 00 every Medical morning Branch and evening. losartan 50 2022-0 Yes [id number] 25mg Take 0.5 [facility] mg tablet 4-28 tablets by ity of 00:00: mouth [place] 00 every day Medical at 1200 Branch (noon). ipratropium 2022-0 Yes [id number] .5mg Inhale 2.5 [facility] 0.02 % 4-28 mL every 6 ity of nebulizer 00:00: (six) [place] solution 00 hours as Medical needed for Branch Wheezing or Shortness of Breath. albuterol 2022-0 Yes [id number] 2.5mg Inhale 3 [facility] 2.5 mg /3 4-28 mL every 8 ity of mL (0.083 00:00: (eight) [place] %) 00 hours as Medical nebulizer needed for Bran ch solution Wheezing or Shortness of Breath. atorvastati 2022-0 Yes [id number] 20mg Take 1 [facility] n 20 mg 4-28 tablet by ity of tablet 00:00: mouth at [place] 00 bedtime. Medical Branch furosemide 2022-0 Yes [id number] 40mg Take 1 [facility] 40 mg 4-28 tablet by ity of tablet 00:00: mouth [place] 00 every Medical morning Branch and evening. losartan 50 2022-0 Yes [id number] 25mg Take 0.5 [facility] mg tablet 4-28 tablets by ity of 00:00: mouth [place] 00 every day Medical at 1200 Branch (noon). ipratropium 2022-0 Yes [id number] .5mg Inhale 2.5 [facility] 0.02 % 4-28 mL every 6 ity of nebulizer 00:00: (six) [place] solution 00 hours as Medical needed for Branch Wheezing or Shortness of Breath. albuterol 2022-0 Yes [id number] 2.5mg Inhale 3 [facility] 2.5 mg /3 4-28 mL every 8 ity of mL (0.083 00:00: (eight) [place] %) 00 hours as Medical nebulizer needed for Bran ch solution Wheezing or Shortness of Breath. atorvastati 2022-0 Yes [id number] 20mg Take 1 [facility] n 20 mg 4-28 tablet by ity of tablet 00:00: mouth at [place] 00 bedtime. Medical Branch furosemide 2022-0 Yes [id number] 40mg Take 1 [facility] 40 mg 4-28 tablet by ity of tablet 00:00: mouth [place] 00 every Medical morning Branch and evening. losartan 50 2022-0 Yes [id number] 25mg Take 0.5 [facility] mg tablet 4-28 tablets by ity of 00:00: mouth [place] 00 every day Medical at 1200 Branch (noon). ipratropium 2022-0 Yes [id number] .5mg Inhale 2.5 [facility] 0.02 % 4-28 mL every 6 ity of nebulizer 00:00: (six) [place] solution 00 hours as Medical needed for Branch Wheezing or Shortness of Breath. albuterol 2022-0 Yes [id number] 2.5mg Inhale 3 [facility] 2.5 mg /3 4-28 mL every 8 ity of mL (0.083 00:00: (eight) [place] %) 00 hours as Medical nebulizer needed for Bran ch solution Wheezing or Shortness of Breath. atorvastati 2022-0 Yes [id number] 20mg Take 1 [facility] n 20 mg 4-28 tablet by ity of tablet 00:00: mouth at [place] 00 bedtime. Medical Branch furosemide 2022-0 Yes [id number] 40mg Take 1 [facility] 40 mg 4-28 tablet by ity of tablet 00:00: mouth [place] 00 every Medical morning Branch and evening. losartan 50 2022-0 Yes [id number] 25mg Take 0.5 [facility] mg tablet 4-28 tablets by ity of 00:00: mouth [place] 00 every day Medical at 1200 Branch (noon). ipratropium 2022-0 Yes [id number] .5mg Inhale 2.5 [facility] 0.02 % 4-28 mL every 6 ity of nebulizer 00:00: (six) [place] solution 00 hours as Medical needed for Branch Wheezing or Shortness of Breath. albuterol 2022-0 Yes [id number] 2.5mg Inhale 3 [facility] 2.5 mg /3 4-28 mL every 8 ity of mL (0.083 00:00: (eight) [place] %) 00 hours as Medical nebulizer needed for Bran ch solution Wheezing or Shortness of Breath. atorvastati 2022-0 Yes [id number] 20mg Take 1 [facility] n 20 mg 4-28 tablet by ity of tablet 00:00: mouth at [place] 00 bedtime. Medical Branch furosemide 2022-0 Yes [id number] 40mg Take 1 [facility] 40 mg 4-28 tablet by ity of tablet 00:00: mouth [place] 00 every Medical morning Branch and evening. losartan 50 2022-0 Yes [id number] 25mg Take 0.5 [facility] mg tablet 4-28 tablets by ity of 00:00: mouth [place] 00 every day Medical at 1200 Branch (noon). ipratropium 2022-0 Yes [id number] .5mg Inhale 2.5 [facility] 0.02 % 4-28 mL every 6 ity of nebulizer 00:00: (six) [place] solution 00 hours as Medical needed for Branch Wheezing or Shortness of Breath. albuterol 2022-0 Yes [id number] 2.5mg Inhale 3 [facility] 2.5 mg /3 4-28 mL every 8 ity of mL (0.083 00:00: (eight) [place] %) 00 hours as Medical nebulizer needed for Bran ch solution Wheezing or Shortness of Breath. atorvastati 2022-0 Yes [id number] 20mg Take 1 [facility] n 20 mg 4-28 tablet by ity of tablet 00:00: mouth at [place] 00 bedtime. Medical Branch furosemide 2022-0 Yes [id number] 40mg Take 1 [facility] 40 mg 4-28 tablet by ity of tablet 00:00: mouth [place] 00 every Medical morning Branch and evening. losartan 50 3-0 Yes [id number] 25mg Take 0.5 [facility] mg tablet 4-28 tablets by ity of 00:00: mouth [place] 00 every day Medical at 1200 Branch (noon). ipratropium 3-0 Yes [id number] .5mg Inhale 2.5 [facility] 0.02 % 4-28 mL every 6 ity of nebulizer 00:00: (six) [place] solution 00 hours as Medical needed for Branch Wheezing or Shortness of Breath. albuterol 3-0 Yes [id number] 2.5mg Inhale 3 [facility] 2.5 mg /3 4-28 mL every 8 ity of mL (0.083 00:00: (eight) [place] %) 00 hours as Medical nebulizer needed for Bran ch solution Wheezing or Shortness of Breath. atorvastati 2022-0 Yes [id number] 20mg Take 1 [facility] n 20 mg 4-28 tablet by ity of tablet 00:00: mouth at [place] 00 bedtime. Medical Branch furosemide 2022-0 Yes [id number] 40mg Take 1 [facility] 40 mg 4-28 tablet by ity of tablet 00:00: mouth [place] 00 every Medical morning Branch and evening. losartan 50 2022-0 Yes [id number] 25mg Take 0.5 [facility] mg tablet 4-28 tablets by ity of 00:00: mouth [place] 00 every day Medical at 1200 Branch (noon). ipratropium 2022-0 Yes [id number] .5mg Inhale 2.5 [facility] 0.02 % 4-28 mL every 6 ity of nebulizer 00:00: (six) [place] solution 00 hours as Medical needed for Branch Wheezing or Shortness of Breath. albuterol 2022-0 Yes [id number] 2.5mg Inhale 3 [facility] 2.5 mg /3 4-28 mL every 8 ity of mL (0.083 00:00: (eight) [place] %) 00 hours as Medical nebulizer needed for Bran ch solution Wheezing or Shortness of Breath. atorvastati 2022-0 Yes [id number] 20mg Take 1 [facility] n 20 mg 4-28 tablet by ity of tablet 00:00: mouth at [place] 00 bedtime. Medical Branch furosemide 2022-0 Yes [id number] 40mg Take 1 [facility] 40 mg 4-28 tablet by ity of tablet 00:00: mouth [place] 00 every Medical morning Branch and evening. losartan 50 3-0 Yes [id number] 25mg Take 0.5 [facility] mg tablet 4-28 tablets by ity of 00:00: mouth [place] 00 every day Medical at 1200 Branch (noon). ipratropium 3-0 Yes [id number] .5mg Inhale 2.5 [facility] 0.02 % 4-28 mL every 6 ity of nebulizer 00:00: (six) [place] solution 00 hours as Medical needed for Branch Wheezing or Shortness of Breath. albuterol 3-0 Yes [id number] 2.5mg Inhale 3 [facility] 2.5 mg /3 4-28 mL every 8 ity of mL (0.083 00:00: (eight) [place] %) 00 hours as Medical nebulizer needed for Bran ch solution Wheezing or Shortness of Breath. atorvastati 2022-0 Yes [id number] 20mg Take 1 [facility] n 20 mg 4-28 tablet by ity of tablet 00:00: mouth at [place] 00 bedtime. Medical Branch furosemide 2022-0 Yes [id number] 40mg Take 1 [facility] 40 mg 4-28 tablet by ity of tablet 00:00: mouth [place] 00 every Medical morning Branch and evening. losartan 50 2022-0 Yes [id number] 25mg Take 0.5 [facility] mg tablet 4-28 tablets by ity of 00:00: mouth [place] 00 every day Medical at 1200 Branch (noon). ipratropium 2022-0 Yes [id number] .5mg Inhale 2.5 [facility] 0.02 % 4-28 mL every 6 ity of nebulizer 00:00: (six) [place] solution 00 hours as Medical needed for Branch Wheezing or Shortness of Breath. albuterol 2022-0 Yes [id number] 2.5mg Inhale 3 [facility] 2.5 mg /3 4-28 mL every 8 ity of mL (0.083 00:00: (eight) [place] %) 00 hours as Medical nebulizer needed for Bran ch solution Wheezing or Shortness of Breath. atorvastati 2022-0 Yes [id number] 20mg Take 1 [facility] n 20 mg 4-28 tablet by ity of tablet 00:00: mouth at [place] 00 bedtime. Medical Branch furosemide 3-0 Yes [id number] 40mg Take 1 [facility] 40 mg 4-28 tablet by ity of tablet 00:00: mouth [place] 00 every Medical morning Branch and evening. losartan 50 3-0 Yes [id number] 25mg Take 0.5 [facility] mg tablet 4-28 tablets by ity of 00:00: mouth [place] 00 every day Medical at 1200 Branch (noon). ipratropium 3-0 Yes [id number] .5mg Inhale 2.5 [facility] 0.02 % 4-28 mL every 6 ity of nebulizer 00:00: (six) [place] solution 00 hours as Medical needed for Branch Wheezing or Shortness of Breath. albuterol 2022-0 Yes [id number] 2.5mg Inhale 3 [facility] 2.5 mg /3 4-28 mL every 8 ity of mL (0.083 00:00: (eight) [place] %) 00 hours as Medical nebulizer needed for Bran ch solution Wheezing or Shortness of Breath. atorvastati 2022-0 Yes [id number] 20mg Take 1 [facility] n 20 mg 4-28 tablet by ity of tablet 00:00: mouth at [place] 00 bedtime. Medical Branch furosemide 2022-0 Yes [id number] 40mg Take 1 [facility] 40 mg 4-28 tablet by ity of tablet 00:00: mouth [place] 00 every Medical morning Branch and evening. losartan 50 2022-0 Yes [id number] 25mg Take 0.5 [facility] mg tablet 4-28 tablets by ity of 00:00: mouth [place] 00 every day Medical at 1200 Branch (noon). ipratropium 2022-0 Yes [id number] .5mg Inhale 2.5 [facility] 0.02 % 4-28 mL every 6 ity of nebulizer 00:00: (six) [place] solution 00 hours as Medical needed for Branch Wheezing or Shortness of Breath. albuterol 2022-0 Yes [id number] 2.5mg Inhale 3 [facility] 2.5 mg /3 4-28 mL every 8 ity of mL (0.083 00:00: (eight) [place] %) 00 hours as Medical nebulizer needed for Bran ch solution Wheezing or Shortness of Breath. atorvastati 2022-0 Yes [id number] 20mg Take 1 [facility] n 20 mg 4-28 tablet by ity of tablet 00:00: mouth at [place] 00 bedtime. Medical Branch furosemide 2022-0 Yes [id number] 40mg Take 1 [facility] 40 mg 4-28 tablet by ity of tablet 00:00: mouth [place] 00 every Medical morning Branch and evening. losartan 50 2022-0 Yes [id number] 25mg Take 0.5 [facility] mg tablet 4-28 tablets by ity of 00:00: mouth [place] 00 every day Medical at 1200 Branch (noon). ipratropium 2022-0 Yes [id number] .5mg Inhale 2.5 [facility] 0.02 % 4-28 mL every 6 ity of nebulizer 00:00: (six) [place] solution 00 hours as Medical needed for Branch Wheezing or Shortness of Breath. albuterol 2022-0 Yes [id number] 2.5mg Inhale 3 [facility] 2.5 mg /3 4-28 mL every 8 ity of mL (0.083 00:00: (eight) [place] %) 00 hours as Medical nebulizer needed for Bran ch solution Wheezing or Shortness of Breath. atorvastati 2022-0 Yes [id number] 20mg Take 1 [facility] n 20 mg 4-28 tablet by ity of tablet 00:00: mouth at [place] 00 bedtime. Medical Branch losartan 50 2022-0 Yes [id number] 25mg Take 0.5 [facility] mg tablet 4-28 tablets by ity of 00:00: mouth [place] 00 every day Medical at 1200 Branch (noon). ipratropium 3-0 Yes [id number] .5mg Inhale 2.5 [facility] 0.02 % 4-28 mL every 6 ity of nebulizer 00:00: (six) [place] solution 00 hours as Medical needed for Branch Wheezing or Shortness of Breath. albuterol 2022-0 Yes [id number] 2.5mg Inhale 3 [facility] 2.5 mg /3 4-28 mL every 8 ity of mL (0.083 00:00: (eight) [place] %) 00 hours as Medical nebulizer needed for Bran ch solution Wheezing or Shortness of Breath. atorvastati 2022-0 Yes [id number] 20mg Take 1 [facility] n 20 mg 4-28 tablet by ity of tablet 00:00: mouth at [place] 00 bedtime. Medical Branch losartan 50 2022-0 Yes [id number] 25mg Take 0.5 [facility] mg tablet 4-28 tablets by ity of 00:00: mouth [place] 00 every day Medical at 1200 Branch (noon). ipratropium 2023-0 Yes [id number] .5mg Inhale 2.5 [facility] 0.02 % 4-28 mL every 6 ity of nebulizer 00:00: (six) [place] solution 00 hours as Medical needed for Branch Wheezing or Shortness of Breath. albuterol 3-0 Yes [id number] 2.5mg Inhale 3 [facility] 2.5 mg /3 4-28 mL every 8 ity of mL (0.083 00:00: (eight) [place] %) 00 hours as Medical nebulizer needed for Bran ch solution Wheezing or Shortness of Breath. atorvastati 2022-0 Yes [id number] 20mg Take 1 [facility] n 20 mg 4-28 tablet by ity of tablet 00:00: mouth at [place] 00 bedtime. Medical Branch losartan 50 2022-0 Yes [id number] 25mg Take 0.5 [facility] mg tablet 4-28 tablets by ity of 00:00: mouth [place] 00 every day Medical at 1200 Branch (noon). ipratropium 3-0 Yes [id number] .5mg Inhale 2.5 [facility] 0.02 % 4-28 mL every 6 ity of nebulizer 00:00: (six) [place] solution 00 hours as Medical needed for Branch Wheezing or Shortness of Breath. albuterol 3-0 Yes [id number] 2.5mg Inhale 3 [facility] 2.5 mg /3 4-28 mL every 8 ity of mL (0.083 00:00: (eight) [place] %) 00 hours as Medical nebulizer needed for Bran ch solution Wheezing or Shortness of Breath. atorvastati 2022-0 Yes [id number] 20mg Take 1 [facility] n 20 mg 4-28 tablet by ity of tablet 00:00: mouth at [place] 00 bedtime. Medical Branch losartan 50 2022-0 Yes [id number] 25mg Take 0.5 [facility] mg tablet 4-28 tablets by ity of 00:00: mouth [place] 00 every day Medical at 1200 [place] (noon). ipratropium 2023-0 Yes [id number] .5mg Inhale 2.5 [facility] 0.02 % 4-28 mL every 6 ity of nebulizer 00:00: (six) [place] solution 00 hours as Medical needed for Branch Wheezing or Shortness of Breath. albuterol 2023-0 Yes [id number] 2.5mg Inhale 3 [facility] 2.5 mg /3 4-28 mL every 8 ity of mL (0.083 00:00: (eight) [place] %) 00 hours as Medical nebulizer needed for Bran ch solution Wheezing or Shortness of Breath. atorvastati 2022-0 Yes [id number] 20mg Take 1 [facility] n 20 mg 4-28 tablet by ity of tablet 00:00: mouth at [place] 00 bedtime. Medical Branch losartan 50 2022-0 Yes [id number] 25mg Take 0.5 [facility] mg tablet 4-28 tablets by ity of 00:00: mouth [place] 00 every day Medical at 1200 [place] (noon). ipratropium 3-0 Yes [id number] .5mg Inhale 2.5 [facility] 0.02 % 4-28 mL every 6 ity of nebulizer 00:00: (six) [place] solution 00 hours as Medical needed for Branch Wheezing or Shortness of Breath. albuterol 3-0 Yes [id number] 2.5mg Inhale 3 [facility] 2.5 mg /3 4-28 mL every 8 ity of mL (0.083 00:00: (eight) [place] %) 00 hours as Medical nebulizer needed for Bran ch solution Wheezing or Shortness of Breath. atorvastati 2022-0 Yes [id number] 20mg Take 1 [facility] n 20 mg 4-28 tablet by ity of tablet 00:00: mouth at [place] 00 bedtime. Medical Branch losartan 50 2022-0 Yes [id number] 25mg Take 0.5 [facility] mg tablet 4-28 tablets by ity of 00:00: mouth [place] 00 every day Medical at 1200 [place] (noon). ipratropium 3-0 Yes [id number] .5mg Inhale 2.5 [facility] 0.02 % 4-28 mL every 6 ity of nebulizer 00:00: (six) [place] solution 00 hours as Medical needed for Branch Wheezing or Shortness of Breath. albuterol 3-0 Yes [id number] 2.5mg Inhale 3 [facility] 2.5 mg /3 4-28 mL every 8 ity of mL (0.083 00:00: (eight) [place] %) 00 hours as Medical nebulizer needed for Bran ch solution Wheezing or Shortness of Breath. atorvastati 3-0 Yes [id number] 20mg Take 1 [facility] n 20 mg 4-28 tablet by ity of tablet 00:00: mouth at [place] 00 bedtime. Medical Branch losartan 50 2022-0 Yes [id number] 25mg Take 0.5 [facility] mg tablet 4-28 tablets by ity of 00:00: mouth [place] 00 every day Medical at 1200 [place] (noon). ipratropium 2023-0 Yes [id number] .5mg Inhale 2.5 [facility] 0.02 % 4-28 mL every 6 ity of nebulizer 00:00: (six) [place] solution 00 hours as Medical needed for Branch Wheezing or Shortness of Breath. albuterol 2023-0 Yes [id number] 2.5mg Inhale 3 [facility] 2.5 mg /3 4-28 mL every 8 ity of mL (0.083 00:00: (eight) [place] %) 00 hours as Medical nebulizer needed for Bran ch solution Wheezing or Shortness of Breath. atorvastati 3-0 Yes [id number] 20mg Take 1 [facility] n 20 mg 4-28 tablet by ity of tablet 00:00: mouth at [place] 00 bedtime. Medical Branch losartan 50 2022-0 Yes [id number] 25mg Take 0.5 [facility] mg tablet 4-28 tablets by ity of 00:00: mouth [place] 00 every day Medical at 1200 Branch (noon). ipratropium 2023-0 Yes [id number] .5mg Inhale 2.5 [facility] 0.02 % 4-28 mL every 6 ity of nebulizer 00:00: (six) [place] solution 00 hours as Medical needed for Branch Wheezing or Shortness of Breath. albuterol 2023-0 Yes [id number] 2.5mg Inhale 3 [facility] 2.5 mg /3 4-28 mL every 8 ity of mL (0.083 00:00: (eight) [place] %) 00 hours as Medical nebulizer needed for Bran ch solution Wheezing or Shortness of Breath. atorvastati 3-0 Yes [id number] 20mg Take 1 [facility] n 20 mg 4-28 tablet by ity of tablet 00:00: mouth at [place] 00 bedtime. Medical Branch losartan 50 2022-0 Yes [id number] 25mg Take 0.5 [facility] mg tablet 4-28 tablets by ity of 00:00: mouth [place] 00 every day Medical at 1200 Branch (noon). ipratropium 2023-0 Yes [id number] .5mg Inhale 2.5 [facility] 0.02 % 4-28 mL every 6 ity of nebulizer 00:00: (six) [place] solution 00 hours as Medical needed for Branch Wheezing or Shortness of Breath. albuterol 2023-0 Yes [id number] 2.5mg Inhale 3 [facility] 2.5 mg /3 4-28 mL every 8 ity of mL (0.083 00:00: (eight) [place] %) 00 hours as Medical nebulizer needed for Bran ch solution Wheezing or Shortness of Breath. atorvastati 2022-0 Yes [id number] 20mg Take 1 [facility] n 20 mg 4-28 tablet by ity of tablet 00:00: mouth at [place] 00 bedtime. [facility] losartan 50 2022-0 Yes [id number] 25mg Take 0.5 [facility] mg tablet 4-28 tablets by ity of 00:00: mouth [place] 00 every day Medical at [address] (noon). ipratropium 3-0 Yes [id number] .5mg Inhale 2.5 [facility] 0.02 % 4-28 mL every 6 ity of nebulizer 00:00: (six) [place] solution 00 hours as Medical needed for Branch Wheezing or Shortness of Breath. albuterol 2022-0 Yes [id number] 2.5mg Inhale 3 [facility] 2.5 mg /3 4-28 mL every 8 ity of mL (0.083 00:00: (eight) [place] %) 00 hours as Medical nebulizer needed for Bran ch solution Wheezing or Shortness of Breath. atorvastati 2022-0 Yes [id number] 20mg Take 1 [facility] n 20 mg 4-28 tablet by ity of tablet 00:00: mouth at [place] 00 bedtime. [facility] losartan 50 2022-0 Yes [id number] 25mg Take 0.5 [facility] mg tablet 4-28 tablets by ity of 00:00: mouth [place] 00 every day Medical at [address] (noon). ipratropium 3-0 Yes [id number] .5mg Inhale 2.5 [facility] 0.02 % 4-28 mL every 6 ity of nebulizer 00:00: (six) [place] solution 00 hours as Medical needed for Branch Wheezing or Shortness of Breath. albuterol 2023-0 Yes [id number] 2.5mg Inhale 3 [facility] 2.5 mg /3 4-28 mL every 8 ity of mL (0.083 00:00: (eight) [place] %) 00 hours as Medical nebulizer needed for Bran ch solution Wheezing or Shortness of Breath. atorvastati 2023-0 Yes [id number] 20mg Take 1 [facility] n 20 mg 4-28 tablet by ity of tablet 00:00: mouth at [place] 00 bedtime. [facility] losartan 50 2022-0 Yes [id number] 25mg Take 0.5 [facility] mg tablet 4-28 tablets by ity of 00:00: mouth [place] 00 every day Medical at [address] (noon). ipratropium 2022-0 Yes [id number] .5mg Inhale 2.5 [facility] 0.02 % 4-28 mL every 6 ity of nebulizer 00:00: (six) [place] solution 00 hours as Medical needed for Branch Wheezing or Shortness of Breath. albuterol 2022-0 Yes [id number] 2.5mg Inhale 3 [facility] 2.5 mg /3 4-28 mL every 8 ity of mL (0.083 00:00: (eight) [place] %) 00 hours as Medical nebulizer needed for Bran ch solution Wheezing or Shortness of Breath. atorvastati 2022-0 Yes [id number] 20mg Take 1 [facility] n 20 mg 4-28 tablet by ity of tablet 00:00: mouth at [place] 00 bedtime. [facility] losartan 50 2022-0 Yes [id number] 25mg Take 0.5 [facility] mg tablet 4-28 tablets by ity of 00:00: mouth [place] 00 every day Medical at [address] [place] [address] (noon). ipratropium 2022-0 Yes [id number] .5mg Inhale 2.5 [facility] 0.02 % 4-28 mL every 6 ity of nebulizer 00:00: (six) [place] solution 00 hours as Medical needed for Branch Wheezing or Shortness of Breath. albuterol 2022-0 Yes [id number] 2.5mg Inhale 3 [facility] 2.5 mg /3 4-28 mL every 8 ity of mL (0.083 00:00: (eight) [place] %) 00 hours as Medical nebulizer needed for Bran ch solution Wheezing or Shortness of Breath. atorvastati 2022-0 Yes [id number] 20mg Take 1 [facility] n 20 mg 4-28 tablet by ity of tablet 00:00: mouth at [place] 00 bedtime. [facility] losartan 50 2022-0 Yes [id number] 25mg Take 0.5 [facility] mg tablet 4-28 tablets by ity of 00:00: mouth [place] 00 every day Medical at [address] (noon). ipratropium 2023-0 Yes [id number] .5mg Inhale 2.5 [facility] 0.02 % 4-28 mL every 6 ity of nebulizer 00:00: (six) [place] solution 00 hours as Medical needed for Branch Wheezing or Shortness of Breath. albuterol 2023-0 Yes [id number] 2.5mg Inhale 3 [facility] 2.5 mg /3 4-28 mL every 8 ity of mL (0.083 00:00: (eight) [place] %) 00 hours as Medical nebulizer needed for Bran ch solution Wheezing or Shortness of Breath. atorvastati 2023-0 Yes [id number] 20mg Take 1 [facility] n 20 mg 4-28 tablet by ity of tablet 00:00: mouth at [place] 00 bedtime. [facility] losartan 50 2022-0 Yes [id number] 25mg Take 0.5 [facility] mg tablet 4-28 tablets by ity of 00:00: mouth [place] 00 every day Medical at [address] (noon). ipratropium 2023-0 Yes [id number] .5mg Inhale 2.5 [facility] 0.02 % 4-28 mL every 6 ity of nebulizer 00:00: (six) [place] solution 00 hours as Medical needed for Branch Wheezing or Shortness of Breath. albuterol 2023-0 Yes [id number] 2.5mg Inhale 3 [facility] 2.5 mg /3 4-28 mL every 8 ity of mL (0.083 00:00: (eight) [place] %) 00 hours as Medical nebulizer needed for Bran ch solution Wheezing or Shortness of Breath. atorvastati 2023-0 Yes [id number] 20mg Take 1 [facility] n 20 mg 4-28 tablet by ity of tablet 00:00: mouth at [place] 00 bedtime. Medical Branch losartan 50 3-0 Yes [id number] 25mg Take 0.5 [facility] mg tablet 4-28 tablets by ity of 00:00: mouth [place] 00 every day Medical at [address] (noon). ipratropium 2023-0 Yes [id number] .5mg Inhale 2.5 [facility] 0.02 % 4-28 mL every 6 ity of nebulizer 00:00: (six) [place] solution 00 hours as Medical needed for Branch Wheezing or Shortness of Breath. albuterol 2022-0 Yes [id number] 2.5mg Inhale 3 [facility] 2.5 mg /3 4-28 mL every 8 ity of mL (0.083 00:00: (eight) [place] %) 00 hours as Medical nebulizer needed for Bran ch solution Wheezing or Shortness of Breath. atorvastati 2022-0 Yes [id number] 20mg Take 1 [facility] n 20 mg 4-28 tablet by ity of tablet 00:00: mouth at [place] 00 bedtime. Medical Branch losartan 50 2022-0 Yes [id number] 25mg Take 0.5 [facility] mg tablet 4-28 tablets by ity of 00:00: mouth [place] 00 every day Medical at [address] (noon). ipratropium 2022-0 Yes [id number] .5mg Inhale 2.5 [facility] 0.02 % 4-28 mL every 6 ity of nebulizer 00:00: (six) [place] solution 00 hours as Medical needed for Branch Wheezing or Shortness of Breath. albuterol 2022-0 Yes [id number] 2.5mg Inhale 3 [facility] 2.5 mg /3 4-28 mL every 8 ity of mL (0.083 00:00: (eight) [place] %) 00 hours as Medical nebulizer needed for Bran ch solution Wheezing or Shortness of Breath. atorvastati 2022-0 Yes [id number] 20mg Take 1 [facility] n 20 mg 4-28 tablet by ity of tablet 00:00: mouth at [place] 00 bedtime. Medical Branch losartan 50 2022-0 Yes [id number] 25mg Take 0.5 [facility] mg tablet 4-28 tablets by ity of 00:00: mouth [place] 00 every day Medical at [address] (noon). ipratropium 2022-0 Yes [id number] .5mg Inhale 2.5 [facility] 0.02 % 4-28 mL every 6 ity of nebulizer 00:00: (six) [place] solution 00 hours as Medical needed for Branch Wheezing or Shortness of Breath. albuterol 2022-0 Yes [id number] 2.5mg Inhale 3 [facility] 2.5 mg /3 4-28 mL every 8 ity of mL (0.083 00:00: (eight) [place] %) 00 hours as Medical nebulizer needed for Bran ch solution Wheezing or Shortness of Breath. atorvastati 2022-0 Yes [id number] 20mg Take 1 [facility] n 20 mg 4-28 tablet by ity of tablet 00:00: mouth at [place] 00 bedtime. Medical Branch losartan 50 2022-0 Yes [id number] 25mg Take 0.5 [facility] mg tablet 4-28 tablets by ity of 00:00: mouth [place] 00 every day Medical at [address] (noon). ipratropium 3-0 Yes [id number] .5mg Inhale 2.5 [facility] 0.02 % 4-28 mL every 6 ity of nebulizer 00:00: (six) [place] solution 00 hours as Medical needed for Branch Wheezing or Shortness of Breath. albuterol 2022-0 Yes [id number] 2.5mg Inhale 3 [facility] 2.5 mg /3 4-28 mL every 8 ity of mL (0.083 00:00: (eight) [place] %) 00 hours as Medical nebulizer needed for Bran ch solution Wheezing or Shortness of Breath. atorvastati 2022-0 Yes [id number] 20mg Take 1 [facility] n 20 mg 4-28 tablet by ity of tablet 00:00: mouth at [place] 00 bedtime. Medical Branch losartan 50 2022-0 Yes [id number] 25mg Take 0.5 [facility] mg tablet 4-28 tablets by ity of 00:00: mouth [place] 00 every day Medical at [address] (noon). ipratropium 3-0 Yes [id number] .5mg Inhale 2.5 [facility] 0.02 % 4-28 mL every 6 ity of nebulizer 00:00: (six) [place] solution 00 hours as Medical needed for Branch Wheezing or Shortness of Breath. albuterol 3-0 Yes [id number] 2.5mg Inhale 3 [facility] 2.5 mg /3 4-28 mL every 8 ity of mL (0.083 00:00: (eight) [place] %) 00 hours as Medical nebulizer needed for Bran ch solution Wheezing or Shortness of Breath. atorvastati 2022-0 Yes [id number] 20mg Take 1 [facility] n 20 mg 4-28 tablet by ity of tablet 00:00: mouth at [place] 00 bedtime. Medical Branch losartan 50 2022-0 Yes [id number] 25mg Take 0.5 [facility] mg tablet 4-28 tablets by ity of 00:00: mouth [place] 00 every day Medical at [address] [place] [address] (noon). ipratropium 3-0 Yes [id number] .5mg Inhale 2.5 [facility] 0.02 % 4-28 mL every 6 ity of nebulizer 00:00: (six) [place] solution 00 hours as Medical needed for Branch Wheezing or Shortness of Breath. albuterol 3-0 Yes [id number] 2.5mg Inhale 3 [facility] 2.5 mg /3 4-28 mL every 8 ity of mL (0.083 00:00: (eight) [place] %) 00 hours as Medical nebulizer needed for Bran ch solution Wheezing or Shortness of Breath. atorvastati 2022-0 Yes [id number] 20mg Take 1 [facility] n 20 mg 4-28 tablet by ity of tablet 00:00: mouth at [place] 00 bedtime. Medical Branch losartan 50 2022-0 Yes [id number] 25mg Take 0.5 [facility] mg tablet 4-28 tablets by ity of 00:00: mouth [place] 00 every day Medical at [address] [place] [address] (noon). atorvastati 2022-0 Yes [id number] 20mg Take 1 [facility] n 20 mg 4-28 tablet by ity of tablet 00:00: mouth at [place] 00 bedtime. [facility] Branch losartan 50 2022-0 Yes [id number] 25mg Take 0.5 [facility] mg tablet 4-28 tablets by ity of 00:00: mouth [place] 00 every day Medical at [address] [place] [address] (noon). atorvastati 2022-0 Yes [id number] 20mg Take 1 [facility] n 20 mg 4-28 tablet by ity of tablet 00:00: mouth at [place] 00 bedtime. [facility] Branch losartan 50 2022-0 Yes [id number] 25mg Take 0.5 [facility] mg tablet 4-28 tablets by ity of 00:00: mouth [place] 00 every day Medical at [address] [place] [address] (noon). atorvastati 2022-0 Yes [id number] 20mg Take 1 [facility] n 20 mg 4-28 tablet by ity of tablet 00:00: mouth at [place] 00 bedtime. [facility] losartan 50 2022-0 Yes [id number] 25mg Take 0.5 [facility] mg tablet 4-28 tablets by ity of 00:00: mouth [place] 00 every day Medical at [address] [place] [address] (noon). atorvastati 2022-0 Yes [id number] 20mg Take 1 [facility] n 20 mg 4-28 tablet by ity of tablet 00:00: mouth at [place] 00 bedtime. [facility] Branch losartan 50 2022-0 Yes [id number] 25mg Take 0.5 [facility] mg tablet 4-28 tablets by ity of 00:00: mouth [place] 00 every day Medical at [address] [place] [address] (noon). atorvastati 2022-0 Yes [id number] 20mg Take 1 [facility] n 20 mg 4-28 tablet by ity of tablet 00:00: mouth at [place] 00 bedtime. [facility] Branch losartan 50 2022-0 Yes [id number] 25mg Take 0.5 [facility] mg tablet 4-28 tablets by ity of 00:00: mouth [place] 00 every day Medical at [address] [place] [address] (noon). atorvastati 2022-0 Yes [id number] 20mg Take 1 [facility] n 20 mg 4-28 tablet by ity of tablet 00:00: mouth at [place] 00 bedtime. [facility] Branch losartan 50 2022-0 Yes [id number] 25mg Take 0.5 [facility] mg tablet 4-28 tablets by ity of 00:00: mouth [place] 00 every day Medical at [address] [place] [address] (noon). atorvastati 2022-0 Yes [id number] 20mg Take 1 [facility] n 20 mg 4-28 tablet by ity of tablet 00:00: mouth at [place] 00 bedtime. [facility] losartan 50 2022-0 Yes [id number] 25mg Take 0.5 [facility] mg tablet 4-28 tablets by ity of 00:00: mouth [place] 00 every day Medical at [address] [place] [address] (noon). atorvastati 2022-0 Yes [id number] 20mg Take 1 [facility] n 20 mg 4-28 tablet by ity of tablet 00:00: mouth at [place] 00 bedtime. [facility] losartan 50 2022-0 Yes [id number] 25mg Take 0.5 [facility] mg tablet 4-28 tablets by ity of 00:00: mouth [place] 00 every day Medical at [address] [place] [address] (noon). atorvastati 2022-0 Yes [id number] 20mg Take 1 [facility] n 20 mg 4-28 tablet by ity of tablet 00:00: mouth at [place] 00 bedtime. [facility] Branch losartan 50 2022-0 Yes [id number] 25mg Take 0.5 [facility] mg tablet 4-28 tablets by ity of 00:00: mouth [place] 00 every day Medical at [address] [place] [address] (noon). atorvastati 2022-0 Yes [id number] 20mg Take 1 [facility] n 20 mg 4-28 tablet by ity of tablet 00:00: mouth at [place] 00 bedtime. [facility] Branch losartan 50 2022-0 Yes [id number] 25mg Take 0.5 [facility] mg tablet 4-28 tablets by ity of 00:00: mouth [place] 00 every day Medical at [address] [place] [address] (noon). atorvastati 2022-0 Yes [id number] 20mg Take 1 [facility] n 20 mg 4-28 tablet by ity of tablet 00:00: mouth at [place] 00 bedtime. [facility] Branch losartan 50 2022-0 Yes [id number] 25mg Take 0.5 [facility] mg tablet 4-28 tablets by ity of 00:00: mouth [place] 00 every day Medical at [address] [place] [address] (noon). atorvastati 2022-0 Yes [id number] 20mg Take 1 [facility] n 20 mg 4-28 tablet by ity of tablet 00:00: mouth at [place] 00 bedtime. [facility] Branch losartan 50 2022-0 Yes [id number] 25mg Take 0.5 [facility] mg tablet 4-28 tablets by ity of 00:00: mouth [place] 00 every day Medical at [address] [place] [address] (noon). atorvastati 2022-0 Yes [id number] 20mg Take 1 [facility] n 20 mg 4-28 tablet by ity of tablet 00:00: mouth at [place] 00 bedtime. [facility] losartan 50 2022-0 Yes [id number] 25mg Take 0.5 [facility] mg tablet 4-28 tablets by ity of 00:00: mouth [place] 00 every day Medical at [address] [place] [address] (noon). atorvastati 2022-0 Yes [id number] 20mg Take 1 [facility] n 20 mg 4-28 tablet by ity of tablet 00:00: mouth at [place] 00 bedtime. [facility] Branch losartan 50 2022-0 Yes [id number] 25mg Take 0.5 [facility] mg tablet 4-28 tablets by ity of 00:00: mouth [place] 00 every day Medical at [address] [place] [address] (noon). atorvastati 2022-0 Yes [id number] 20mg Take 1 [facility] n 20 mg 4-28 tablet by ity of tablet 00:00: mouth at [place] 00 bedtime. [facility] Branch losartan 50 2022-0 Yes [id number] 25mg Take 0.5 [facility] mg tablet 4-28 tablets by ity of 00:00: mouth [place] 00 every day Medical at [address] [place] [address] (noon). atorvastati 2022-0 Yes [id number] 20mg Take 1 [facility] n 20 mg 4-28 tablet by ity of tablet 00:00: mouth at [place] 00 bedtime. [facility] Branch losartan 50 2022-0 Yes [id number] 25mg Take 0.5 [facility] mg tablet 4-28 tablets by ity of 00:00: mouth [place] 00 every day Medical at [address] [place] [address] (noon). atorvastati 2022-0 Yes [id number] 20mg Take 1 [facility] n 20 mg 4-28 tablet by ity of tablet 00:00: mouth at [place] 00 bedtime. [facility] Branch losartan 50 2022-0 Yes [id number] 25mg Take 0.5 [facility] mg tablet 4-28 tablets by ity of 00:00: mouth [place] 00 every day Medical at [address] [place] [address] (noon). atorvastati 2022-0 Yes [id number] 20mg Take 1 [facility] n 20 mg 4-28 tablet by ity of tablet 00:00: mouth at [place] 00 bedtime. [facility] Branch losartan 50 2022-0 Yes [id number] 25mg Take 0.5 [facility] mg tablet 4-28 tablets by ity of 00:00: mouth [place] 00 every day Medical at [address] [place] [address] (noon). atorvastati 2022-0 Yes [id number] 20mg Take 1 [facility] n 20 mg 4-28 tablet by ity of tablet 00:00: mouth at [place] 00 bedtime. [facility] losartan 50 2022-0 Yes [id number] 25mg Take 0.5 [facility] mg tablet 4-28 tablets by ity of 00:00: mouth [place] 00 every day Medical at [address] [place] [address] (noon). atorvastati 2022-0 Yes [id number] 20mg Take 1 [facility] n 20 mg 4-28 tablet by ity of tablet 00:00: mouth at [place] 00 bedtime. [facility] losartan 50 2022-0 Yes [id number] 25mg Take 0.5 [facility] mg tablet 4-28 tablets by ity of 00:00: mouth [place] 00 every day Medical at [address] [place] [address] (noon). atorvastati 2022-0 Yes [id number] 20mg Take 1 [facility] n 20 mg 4-28 tablet by ity of tablet 00:00: mouth at [place] 00 bedtime. [facility] Branch losartan 50 3-0 Yes [id number] 25mg Take 0.5 [facility] mg tablet 4-28 tablets by ity of 00:00: mouth [place] 00 every day Medical at [address] (noon). ipratropium 3-0 3- No [id number] .5mg Inhale 2.5 [facility] 0.02 % 4-28 06-27 mL every 6 ity of nebulizer 00:00: 00:00 (six) [place] solution 00 :00 hours as Medical needed for Branch Wheezing or Shortness of Breath. albuterol 2022-0 3- No [id number] 2.5mg Inhale 3 [facility] 2.5 mg /3 4-28 06-27 mL every 8 ity of mL (0.083 00:00: 00:00 (eight) [place] 00 :00 hours as Medical nebulizer needed for Bran ch solution Wheezing or Shortness of Breath. ipratropium 2022-0 3- No [id number] .5mg Inhale 2.5 [facility] 0.02 % 4-28 06-27 mL every 6 ity of nebulizer 00:00: 00:00 (six) [place] solution 00 :00 hours as Medical needed for Branch Wheezing or Shortness of Breath. albuterol 3-0 3- No [id number] 2.5mg Inhale 3 [facility] 2.5 mg /3 4-28 06-27 mL every 8 ity of mL (0.083 00:00: 00:00 (eight) [place] 00 :00 hours as Medical nebulizer needed for Bran ch solution Wheezing or Shortness of Breath. ipratropium 3-0 2023- No [id number] .5mg Inhale 2.5 [facility] 0.02 % 4-28 06-27 mL every 6 ity of nebulizer 00:00: 00:00 (six) [place] solution 00 :00 hours as Medical needed for Branch Wheezing or Shortness of Breath. albuterol 2023-0 2023- No [id number] 2.5mg Inhale 3 [facility] 2.5 mg /3 4-28 06-27 mL every 8 ity of mL (0.083 00:00: 00:00 (eight) [place] 00 :00 hours as Medical nebulizer needed for Bran ch solution Wheezing or Shortness of Breath. furosemide 2023-0 2023- No [id number] 40mg Take 1 [facility] 40 mg 4-28 [...] [place] 00 every day Medical at [address] (noon). losartan 50 2023-0 Yes 25mg Take 0.5 [facility] mg tablet 4-12 tablets by ity of 00:00: mouth [place] 00 every day Medical at [address] (noon). losartan 50 2023-0 Yes 25mg Take 0.5 [facility] mg tablet 4-12 tablets by ity of 00:00: mouth [place] 00 every day Medical at [address] (noon). losartan 50 2023-0 Yes 25mg Take 0.5 [facility] mg tablet 4-12 tablets by ity of 00:00: mouth [place] 00 every day Medical at [address] (noon). losartan 50 2023-0 Yes 25mg Take 0.5 [facility] mg tablet 4-12 tablets by ity of 00:00: mouth [place] 00 every day Medical at [address] [place] [address] (noon). losartan 50 2023-0 Yes 25mg Take 0.5 [facility] mg tablet 4-12 tablets by ity of 00:00: mouth [place] 00 every day Medical at [address] [place] [address] (noon). losartan 50 2023-0 Yes 25mg Take 0.5 [facility] mg tablet 4-12 tablets by ity of 00:00: mouth [place] 00 every day Medical at [address] [place] [address] (noon). losartan 50 2023-0 Yes 25mg Take 0.5 [facility] mg tablet 4-12 tablets by ity of 00:00: mouth [place] 00 every day Medical at [address] [place] [address] (noon). losartan 50 2023-0 Yes 25mg Take 0.5 Un [facility] mg tablet 4-12 tablets by ity of 00:00: mouth [place] 00 every day Medical at [address] [place] [address] (noon). losartan 50 2023-0 Yes 25mg Take 0.5 Un [facility] mg tablet 4-12 tablets by ity of 00:00: mouth [place] 00 every day Medical at [address] [place] [address] (noon). losartan 50 2023-0 2023- No 25mg Take 0.5 U nivers mg tablet 4-12 -28 tablets by ity of 00:00: 00:00 mouth [place] 00 :00 every day Medical at [address] [place] [address] (noon). losartan 50 2023-0 2023- No 25mg Take 0.5 U nivers mg tablet 4-12 -28 tablets by ity of 00:00: 00:00 mouth [place] 00 :00 every day Medical at [address] [place] [address] (noon). losartan 50 2023-0 2023- No 25mg Take 0.5 U nivers mg tablet 4-12 -28 tablets by ity of 00:00: 00:00 mouth [place] 00 :00 every day Medical at [address] [place] [address] (noon). losartan 50 2023-0 2023- No 50mg Take 1 [facility] vers mg tablet 4-12 -12 tablet by ity of 00:00: 00:00 mouth [place] 00 :00 daily. [facility] losartan 50 2023-0 2023- No 25mg Take 0.5 U nivers mg tablet 4-12 04-12 tablets by ity of 00:00: 00:00 mouth [place] 00 :00 daily. [facility] Branch losartan 50 2023-0 2023- No 50mg Take 1 [facility] vers mg tablet -01 16-12 tablet by ity of 00:00: 00:00 mouth [place] 00 :00 daily. Medical Branch losartan 50 2022-0 2022- No 25mg Take 0.5 U nivers mg tablet 4-12 -12 tablets by ity of 00:00: 00:00 mouth [place] 00 :00 daily. Medical Branch furosemide 2022-0 Yes [id number] 40mg Take 1 [facility] 40 mg 4-04 tablet by ity of tablet 00:00: mouth [place] 00 daily. Medical Branch terbinafine 2022-0 Yes [id number] 250mg Take 1 [facility] HCL 250 mg 4-04 tablet by ity of tablet 00:00: mouth [place] 00 daily. Medical Branch benzonatate 2022-0 Yes [id number] 200mg Take 1 [facility] 200 mg 4-04 capsule by ity of capsule 00:00: mouth 3 [place] 00 (three) Medical times Branch daily as needed for Cough. furosemide 2022-0 Yes [id number] 40mg Take 1 [facility] 40 mg 4-04 tablet by ity of tablet 00:00: mouth [place] 00 daily. Medical Branch terbinafine 2022-0 Yes [id number] 250mg Take 1 [facility] HCL 250 mg 4-04 tablet by ity of tablet 00:00: mouth [place] 00 daily. Medical Branch benzonatate 2022-0 Yes [id number] 200mg Take 1 [facility] 200 mg 4-04 capsule by ity of capsule 00:00: mouth 3 00 (three) Medical times Branch daily as needed for Cough. furosemide 2022-0 Yes [id number] 40mg Take 1 [facility] 40 mg 4-04 tablet by ity of tablet 00:00: mouth [place] 00 daily. Medical Branch terbinafine 2022-0 Yes [id number] 250mg Take 1 [facility] HCL 250 mg 4-04 tablet by ity of tablet 00:00: mouth [place] 00 daily. Medical Branch benzonatate 2022-0 Yes [id number] 200mg Take 1 [facility] 200 mg 4-04 capsule by ity of capsule 00:00: mouth 3 [place] 00 (three) Medical times Branch daily as needed for Cough. furosemide 2022-0 Yes [id number] 40mg Take 1 [facility] 40 mg 4-04 tablet by ity of tablet 00:00: mouth [place] 00 daily. Medical Branch terbinafine 2022-0 Yes [id number] 250mg Take 1 [facility] HCL 250 mg 4-04 tablet by ity of tablet 00:00: mouth [place] 00 daily. Medical Branch benzonatate 2022-0 Yes [id number] 200mg Take 1 [facility] 200 mg 4-04 capsule by ity of capsule 00:00: mouth 3 (three) Medical times Branch daily as needed for Cough. furosemide 2022-0 Yes [id number] 40mg Take 1 [facility] 40 mg 4-04 tablet by ity of tablet 00:00: mouth [place] 00 daily. Medical [facility] terbinafine 2022-0 Yes [id number] 250mg Take 1 [facility] HCL 250 mg 4-04 tablet by ity of tablet 00:00: mouth [place] 00 daily. Medical Branch benzonatate 2022-0 Yes [id number] 200mg Take 1 [facility] 200 mg 4-04 capsule by ity of capsule 00:00: mouth 3 (three) Medical times [place] daily as needed for Cough. furosemide 2022-0 Yes [id number] 40mg Take 1 [facility] 40 mg 4-04 tablet by ity of tablet 00:00: mouth [place] 00 daily. Medical Branch terbinafine 2022-0 Yes [id number] 250mg Take 1 [facility] HCL 250 mg 4-04 tablet by ity of tablet 00:00: mouth [place] 00 daily. Medical Branch benzonatate 2022-0 Yes [id number] 200mg Take 1 [facility] 200 mg 4-04 capsule by ity of capsule 00:00: mouth 3 (three) Medical times Branch daily as needed for Cough. furosemide 2022-0 Yes [id number] 40mg Take 1 [facility] 40 mg 4-04 tablet by ity of tablet 00:00: mouth [place] 00 daily. Medical Branch terbinafine 2022-0 Yes [id number] 250mg Take 1 [facility] HCL 250 mg 4-04 tablet by ity of tablet 00:00: mouth [place] 00 daily. Medical Branch benzonatate 2022-0 Yes [id number] 200mg Take 1 [facility] 200 mg 4-04 capsule by ity of capsule 00:00: mouth 3 00 (three) Medical times Branch daily as needed for Cough. furosemide 2022-0 Yes [id number] 40mg Take 1 [facility] 40 mg 4-04 tablet by ity of tablet 00:00: mouth [place] 00 daily. Medical Branch terbinafine 2022-0 Yes [id number] 250mg Take 1 [facility] HCL 250 mg 4-04 tablet by ity of tablet 00:00: mouth [place] 00 daily. Medical Branch benzonatate 2022-0 Yes [id number] 200mg Take 1 [facility] 200 mg 4-04 capsule by ity of capsule 00:00: mouth 3 (three) Medical times Branch daily as needed for Cough. furosemide 2022-0 Yes [id number] 40mg Take 1 [facility] 40 mg 4-04 tablet by ity of tablet 00:00: mouth [place] 00 daily. Medical Branch terbinafine 2022-0 Yes [id number] 250mg Take 1 [facility] HCL 250 mg 4-04 tablet by ity of tablet 00:00: mouth [place] 00 daily. Medical Branch benzonatate 2022-0 Yes [id number] 200mg Take 1 [facility] 200 mg 4-04 capsule by ity of capsule 00:00: mouth 3 (three) Medical times Branch daily as needed for Cough. furosemide 2022-0 Yes [id number] 40mg Take 1 [facility] 40 mg 4-04 tablet by ity of tablet 00:00: mouth 00 daily. Medical Branch terbinafine 2022-0 Yes [id number] 250mg Take 1 [facility] HCL 250 mg 4-04 tablet by ity of tablet 00:00: mouth 00 daily. Medical Branch benzonatate 2022-0 Yes [id number] 200mg Take 1 [facility] 200 mg 4-04 capsule by ity of capsule 00:00: mouth (three) Medical times Branch daily as needed for Cough. terbinafine 2022-0 Yes [id number] 250mg Take 1 [facility] HCL 250 mg 4-04 tablet by ity of tablet 00:00: mouth [place] 00 daily. Medical Branch benzonatate 2022-0 Yes [id number] 200mg Take 1 [facility] 200 mg 4-04 capsule by [facility] 00:00: mouth 3 (three) Medical times Branch daily as needed for Cough. terbinafine 2022-0 Yes [id number] 250mg Take 1 [facility] 250 mg 4-04 tablet by [facility] tablet 00:00: mouth [place] 00 daily. [facility] benzonatate 2022-0 Yes [id number] 200mg Take 1 [facility] 200 mg 4-04 capsule by [facility] capsule 00:00: mouth 3 (three) Medical times Branch daily as needed for Cough. terbinafine 2023-0 Yes [id number] 250mg Take 1 [facility] HCL 250 mg 4-04 tablet by [facility] tablet 00:00: mouth [place] 00 daily. Medical [facility] benzonatate 3-0 Yes [id number] 200mg Take 1 [facility] 200 mg 4-04 capsule by [facility] capsule 00:00: mouth 3 (three) Medical times Branch daily as needed for Cough. terbinafine 2023-0 Yes [id number] 250mg Take 1 [facility] HCL 250 mg 4-04 tablet by [facility] tablet 00:00: mouth [place] 00 daily. [facility] benzonatate 3-0 Yes [id number] 200mg Take 1 [facility] 200 mg 4-04 capsule by [facility] capsule 00:00: mouth 3 (three) Medical times Branch daily as needed for Cough. terbinafine 2022-0 Yes [id number] 250mg Take 1 [facility] HCL 250 mg 4-04 tablet by [facility] tablet 00:00: mouth [place] 00 daily. Medical [facility] benzonatate 3-0 Yes [id number] 200mg Take 1 [facility] 200 mg 4-04 capsule by [facility] capsule 00:00: mouth (three) Medical times Branch daily as needed for Cough. terbinafine 3-0 Yes [id number] 250mg Take 1 [facility] HCL 250 mg 4-04 tablet by [facility] tablet 00:00: mouth [place] 00 daily. Medical [facility] benzonatate 3-0 Yes [id number] 200mg Take 1 [facility] 200 mg 4-04 capsule by [facility] capsule 00:00: mouth (three) Medical times Branch daily as needed for Cough. terbinafine 3-0 Yes [id number] 250mg Take 1 [facility] HCL 250 mg 4-04 tablet by [facility] tablet 00:00: mouth [place] 00 daily. Medical [facility] benzonatate 3-0 Yes [id number] 200mg Take 1 [facility] 200 mg 4-04 capsule by [facility] capsule 00:00: mouth 3 (three) Medical times Branch daily as needed for Cough. terbinafine 2023-0 Yes [id number] 250mg Take 1 [facility] HCL 250 mg 4-04 tablet by [facility] tablet 00:00: mouth [place] 00 daily. Medical [facility] benzonatate 3-0 Yes [id number] 200mg Take 1 [facility] 200 mg 4-04 capsule by [facility] capsule 00:00: mouth (three) Medical times Branch daily as needed for Cough. terbinafine 2023-0 Yes [id number] 250mg Take 1 [facility] HCL 250 mg 4-04 tablet by [facility] tablet 00:00: mouth 00 daily. Medical [facility] benzonatate 2023-0 Yes [id number] 200mg Take 1 [facility] 200 mg 4-04 capsule by [facility] capsule 00:00: mouth (three) Medical times Branch daily as needed for Cough. terbinafine 2023-0 Yes [id number] 250mg Take 1 [facility] HCL 250 mg 4-04 tablet by [facility] tablet 00:00: mouth 00 daily. Medical [facility] benzonatate 3-0 Yes [id number] 200mg Take 1 [facility] 200 mg 4-04 capsule by [facility] capsule 00:00: mouth (three) Medical times Branch daily as needed for Cough. terbinafine 2023-0 Yes [id number] 250mg Take 1 [facility] HCL 250 mg 4-04 tablet by [facility] tablet 00:00: mouth 00 daily. Medical [facility] benzonatate 3-0 Yes [id number] 200mg Take 1 [facility] 200 mg 4-04 capsule by [facility] capsule 00:00: mouth (three) Medical times Branch daily as needed for Cough. terbinafine 3-0 Yes [id number] 250mg Take 1 [facility] H[facility] 250 mg 4-04 tablet by [facility] tablet 00:00: mouth 00 daily. Medical [facility] benzonatate 3-0 Yes [id number] 200mg Take 1 [facility] 200 mg 4-04 capsule by [facility] capsule 00:00: mouth (three) Medical times Branch daily as needed for Cough. terbinafine 2023-0 Yes [id number] 250mg Take 1 [facility] 250 mg 4-04 tablet by [facility] tablet 00:00: mouth 00 daily. Medical Branch benzonatate 2023-0 Yes [id number] 200mg Take 1 [facility] 200 mg 4-04 capsule by [facility] capsule 00:00: mouth (three) Medical times Branch daily as needed for Cough. terbinafine 2023-0 Yes [id number] 250mg Take 1 [facility] 250 mg 4-04 tablet by [facility] tablet 00:00: mouth 00 daily. Medical [facility] benzonatate 3-0 Yes [id number] 200mg Take 1 [facility] 200 mg 4-04 capsule by [facility] capsule 00:00: mouth (three) Medical times Branch daily as needed for Cough. terbinafine 2023-0 Yes [id number] 250mg Take 1 [facility] 250 mg 4-04 tablet by [facility] tablet 00:00: mouth 00 daily. Medical [facility] benzonatate 2023-0 Yes [id number] 200mg Take 1 [facility] 200 mg 4-04 capsule by [facility] capsule 00:00: mouth (three) Medical times Branch daily as needed for Cough. terbinafine 2023-0 Yes [id number] 250mg Take 1 [facility] 250 mg 4-04 tablet by [facility] tablet 00:00: mouth 00 daily. Medical [facility] benzonatate 3-0 Yes [id number] 200mg Take 1 [facility] 200 mg 4-04 capsule by [facility] capsule 00:00: mouth (three) Medical times Branch daily as needed for Cough. terbinafine 3-0 Yes [id number] 250mg Take 1 [facility] 250 mg 4-04 tablet by [facility] tablet 00:00: mouth 00 daily. [facility] benzonatate 3-0 Yes [id number] 200mg Take 1 [facility] 200 mg 4-04 capsule by [facility] capsule 00:00: mouth (three) Medical times Branch daily as needed for Cough. terbinafine 2023-0 Yes [id number] 250mg Take 1 [facility] 250 mg 4-04 tablet by [facility] tablet 00:00: mouth 00 daily. Medical [facility] benzonatate 3-0 Yes [id number] 200mg Take 1 [facility] 200 mg 4-04 capsule by [facility] capsule 00:00: mouth (three) Medical times Branch daily as needed for Cough. terbinafine 2023-0 Yes [id number] 250mg Take 1 [facility] 250 mg 4-04 tablet by [facility] tablet 00:00: mouth [place] 00 daily. [facility] benzonatate 2023-0 Yes [id number] 200mg Take 1 [facility] 200 mg 4-04 capsule by [facility] capsule 00:00: mouth (three) Medical times Branch daily as needed for Cough. terbinafine 2023-0 Yes [id number] 250mg Take 1 [facility] 250 mg 4-04 tablet by [facility] tablet 00:00: mouth [place] 00 daily. Medical [facility] benzonatate 3-0 Yes [id number] 200mg Take 1 [facility] 200 mg 4-04 capsule by [facility] capsule 00:00: mouth 3 (three) Medical times Branch daily as needed for Cough. terbinafine 3-0 Yes [id number] 250mg Take 1 [facility] 250 mg 4-04 tablet by [facility] tablet 00:00: mouth [place] 00 daily. [facility] benzonatate 3-0 Yes [id number] 200mg Take 1 [facility] 200 mg 4-04 capsule by [facility] capsule 00:00: mouth 3 (three) Medical times Branch daily as needed for Cough. terbinafine 2022-0 Yes [id number] 250mg Take 1 [facility] 250 mg 4-04 tablet by [facility] tablet 00:00: mouth [place] 00 daily. Medical [facility] benzonatate 2022-0 Yes [id number] 200mg Take 1 [facility] 200 mg 4-04 capsule by [facility] capsule 00:00: mouth (three) Medical times Branch daily as needed for Cough. terbinafine 3-0 Yes [id number] 250mg Take 1 [facility] 250 mg 4-04 tablet by [facility] tablet 00:00: mouth [place] 00 daily. [facility] benzonatate 3-0 Yes [id number] 200mg Take 1 [facility] 200 mg 4-04 capsule by [facility] capsule 00:00: mouth (three) Medical times Branch daily as needed for Cough. terbinafine 3-0 Yes [id number] 250mg Take 1 [facility] 250 mg 4-04 tablet by [facility] tablet 00:00: mouth [place] 00 daily. Medical [facility] benzonatate 3-0 Yes [id number] 200mg Take 1 [facility] 200 mg 4-04 capsule by [facility] capsule 00:00: mouth 3 (three) Medical times Branch daily as needed for Cough. terbinafine 3-0 Yes [id number] 250mg Take 1 [facility] 250 mg 4-04 tablet by [facility] tablet 00:00: mouth [place] 00 daily. [facility] benzonatate 3-0 Yes [id number] 200mg Take 1 [facility] 200 mg 4-04 capsule by [facility] capsule 00:00: mouth 3 (three) Medical times Branch daily as needed for Cough. terbinafine 2023-0 Yes [id number] 250mg Take 1 [facility] 250 mg 4-04 tablet by [facility] tablet 00:00: mouth [place] 00 daily. [facility] benzonatate 2023-0 Yes [id number] 200mg Take 1 [facility] 200 mg 4-04 capsule by [facility] capsule 00:00: mouth 3 (three) Medical times Branch daily as needed for Cough. terbinafine 2023-0 Yes [id number] 250mg Take 1 [facility] 250 mg 4-04 tablet by [facility] tablet 00:00: mouth 00 daily. Medical Branch benzonatate 2023-0 Yes [id number] 200mg Take 1 [facility] 200 mg 4-04 capsule by [facility] capsule 00:00: mouth (three) Medical times Branch daily as needed for Cough. terbinafine 2023-0 Yes [id number] 250mg Take 1 [facility] 250 mg 4-04 tablet by [facility] tablet 00:00: mouth 00 daily. [facility] benzonatate 3-0 Yes [id number] 200mg Take 1 [facility] 200 mg 4-04 capsule by [facility] capsule 00:00: mouth (three) Medical times Branch daily as needed for Cough. terbinafine 2023-0 Yes [id number] 250mg Take 1 [facility] 250 mg 4-04 tablet by [facility] tablet 00:00: mouth [place] 00 daily. [facility] benzonatate 2023-0 Yes [id number] 200mg Take 1 [facility] 200 mg 4-04 capsule by [facility] capsule 00:00: mouth (three) Medical times Branch daily as needed for Cough. terbinafine 2023-0 Yes [id number] 250mg Take 1 [facility] 250 mg 4-04 tablet by [facility] tablet 00:00: mouth [place] 00 daily. [facility] benzonatate 2023-0 Yes [id number] 200mg Take 1 [facility] 200 mg 4-04 capsule by [facility] capsule 00:00: mouth 3 (three) Medical times Branch daily as needed for Cough. terbinafine 2023-0 Yes [id number] 250mg Take 1 [facility] 250 mg 4-04 tablet by [facility] tablet 00:00: mouth [place] 00 daily. [facility] benzonatate 2023-0 Yes [id number] 200mg Take 1 [facility] 200 mg 4-04 capsule by [facility] capsule 00:00: mouth (three) Medical times Branch daily as needed for Cough. terbinafine 2023-0 Yes [id number] 250mg Take 1 [facility] 250 mg 4-04 tablet by [facility] tablet 00:00: mouth 00 daily. Medical [facility] benzonatate 2023-0 Yes [id number] 200mg Take 1 [facility] 200 mg 4-04 capsule by [facility] capsule 00:00: mouth (three) Medical times Branch daily as needed for Cough. terbinafine 2023-0 Yes [id number] 250mg Take 1 [facility] 250 mg 4-04 tablet by [facility] tablet 00:00: mouth 00 daily. [facility] benzonatate 3-0 Yes [id number] 200mg Take 1 [facility] 200 mg 4-04 capsule by [facility] capsule 00:00: mouth (three) Medical times Branch daily as needed for Cough. terbinafine 2023-0 Yes [id number] 250mg Take 1 [facility] 250 mg 4-04 tablet by [facility] tablet 00:00: mouth 00 daily. Medical [facility] benzonatate 3-0 Yes [id number] 200mg Take 1 [facility] 200 mg 4-04 capsule by [facility] capsule 00:00: mouth (three) Medical times Branch daily as needed for Cough. terbinafine 2023-0 Yes [id number] 250mg Take 1 [facility] 250 mg 4-04 tablet by [facility] tablet 00:00: mouth 00 daily. [facility] benzonatate 2023-0 Yes [id number] 200mg Take 1 [facility] 200 mg 4-04 capsule by [facility] capsule 00:00: mouth (three) Medical times Branch daily as needed for Cough. terbinafine 2023-0 Yes [id number] 250mg Take 1 [facility] HCL 250 mg 4-04 tablet by [facility] tablet 00:00: mouth 00 daily. [facility] Branch benzonatate 2023-0 Yes [id number] 200mg Take 1 [facility] 200 mg 4-04 capsule by [facility] capsule 00:00: mouth (three) Medical times Branch daily as needed for Cough. terbinafine 2023-0 Yes [id number] 250mg Take 1 [facility] HCL 250 mg 4-04 tablet by [facility] tablet 00:00: mouth [place] 00 daily. [facility] benzonatate 2022-0 Yes [id number] 200mg Take 1 [facility] 200 mg 4-04 capsule by [facility] capsule 00:00: mouth 3 [place] 00 (three) Medical times Branch daily as needed for Cough. terbinafine 2022-0 3- No [id number] 250mg Take 1 [facility] H[facility] 250 mg 4-04 06-27 tablet by [facility] tablet 00:00: 00:00 mouth [place] 00 :00 daily. Medical [facility] benzonatate 2022-0 2022- No [id number] 200mg Take 1 [facility] 200 mg 4-04 06-27 capsule by [facility] capsule 00:00: 00:00 mouth 3 [place] 00 :00 (three) Medical times Branch daily as needed for Cough. terbinafine 2022-0 2022- No [id number] 250mg Take 1 [facility] HCL 250 mg 4- 06-27 tablet by [facility] tablet 00:00: 00:00 mouth [place] 00 :00 daily. Medical Branch benzonatate 2022-0 2022- No [id number] 200mg Take 1 [facility] 200 mg 4-04 06-27 capsule by [facility] capsule 00:00: 00:00 mouth 3 [place] 00 :00 (three) Medical times Branch daily as needed for Cough. terbinafine 2022-0 2022- No [id number] 250mg Take 1 [facility] H[facility] 250 mg 4-04 06-27 tablet by [facility] tablet 00:00: 00:00 mouth [place] 00 :00 daily. Medical Branch benzonatate 2022-0 3- No [id number] 200mg Take 1 [facility] 200 mg 4-04 06-27 capsule by [facility] capsule 00:00: 00:00 mouth 3 [place] 00 :00 (three) Medical times Branch daily as needed for Cough. furosemide 2022-0 3- No [id number] 40mg Take 1 [facility] 40 mg 4-04 04-27 tablet by [facility] tablet 00:00: 00:00 mouth [place] 00 :00 daily. Medical Branch furosemide 3-0 2023- No [id number] 40mg Take 1 [facility] 40 mg 4-04 04-27 tablet by [facility] tablet 00:00: 00:00 mouth [place] 00 :00 daily. Medical Branch furosemide 2022-0 2022- No TAKE 1 [facility] ers 40 mg 3-09 06-04 TABLET BY [facility] tablet 00:00: 00:00 MOUTH [place] 00 :00 TWICE Medical DAILY FOR Branch 5 DAYS THEN ONE TABLET DAILY furosemide 2022-0 2022- No TAKE 1 [facility] ers 40 mg 3-27 -04 TABLET BY [facility] tablet 00:00: 00:00 MOUTH [place] 00 :00 TWICE Medical DAILY FOR Branch 5 DAYS THEN ONE TABLET DAILY losartan 25 2022-0 Yes [id number] 25mg Take 1 [facility] mg tablet 3-13 tablet by [facility] o f 00:00: mouth [place] 00 daily. Medical Branch losartan 25 0 Yes [id number] 25mg Take 1 [facility] mg tablet 3-13 tablet by [facility] o f 00:00: mouth [place] 00 daily. Medical Branch losartan 25 0 Yes [id number] 25mg Take 1 [facility] mg tablet 3-13 tablet by [facility] o f 00:00: mouth [place] 00 daily. Medical Branch losartan 25 2022-0 Yes [id number] 25mg Take 1 [facility] mg tablet 3-13 tablet by [facility] o f 00:00: mouth [place] 00 daily. Medical Branch losartan 25 0 Yes [id number] 25mg Take 1 [facility] mg tablet 3-13 tablet by [facility] o f 00:00: mouth [place] 00 daily. Medical Branch losartan 25 0 2022- No [id number] 25mg Take 1 [facility] mg tablet 3-13 -12 tablet by [facility] of 00:00: 00:00 mouth [place] 00 :00 daily. Medical Branch losartan 25 0 2022- No [id number] 25mg Take 1 [facility] mg tablet 3-13 -12 tablet by [facility] of 00:00: 00:00 mouth [place] 00 :00 daily. Medical Branch cefUROXime 2022-0 Yes [id number] 250mg Take 1 [facility] 250 mg 2-14 tablet by [facility] tablet 00:00: mouth 2 00 (two) Medical times Branch daily. cefUROXime 2022-0 Yes [id number] 250mg Take 1 [facility] 250 mg 2-14 tablet by [facility] tablet 00:00: mouth 2 [place] 00 (two) Medical times Branch daily. cefUROXime 2022-0 Yes [id number] 250mg Take 1 [facility] 250 mg 2-14 tablet by [facility] tablet 00:00: mouth 2 [place] 00 (two) Medical times Branch daily. cefUROXime 2023-0 Yes [id number] 250mg Take 1 [facility] 250 mg 2-14 tablet by [facility] of tablet 00:00: [address] 00 (two) Medical times Branch daily. cefUROXime 2023-0 Yes [id number] 250mg Take 1 [facility] 250 mg 2-14 tablet by [facility] of tablet 00:00: [address] 00 (two) Medical times Branch daily. cefUROXime 3-0 Yes [id number] 250mg Take 1 [facility] 250 mg 2-14 tablet by [facility] of tablet 00:00: [address] 00 (two) Medical times Branch daily. cefUROXime 2023-0 Yes [id number] 250mg Take 1 [facility] 250 mg 2-14 tablet by [facility] of tablet 00:00: [address] 00 (two) Medical times Branch daily. cefUROXime 2023-0 Yes [id number] 250mg Take 1 [facility] 250 mg 2-14 tablet by [facility] of tablet 00:00: [address] (two) Medical times Branch daily. cefUROXime 2023-0 2023- No [id number] 250mg Take 1 [facility] 250 mg 2-14 04-04 tablet by [facility] of tablet 00:00: 00:[address] 00 :00 (two) Medical times Branch daily. cefUROXime 2023-0 2023- No [id number] 250mg Take 1 [facility] 250 mg 2-14 04-04 tablet by [facility] of tablet 00:00: 00:[address] 00 :00 (two) Medical times Branch daily. cefdinir 2023-0 Yes [id number] 300mg Take 1 [facility] briana 300 mg 2-09 capsule by [facility] of capsule 00:00: [place] [id number] every 12 Medical (twelve) Branch hours. cefdinir 2023-0 Yes [id number] 300mg Take 1 [facility] [place] 300 mg 2-09 capsule by [facility] of capsule 00:00: [place] [id number] every 12 Medical (twelve) Branch hours. ferrous 2023-0 Yes [id number] 324mg Take 1 Un briana sulfate 324 1-31 tablet by [facility] of mg (65 mg 00:00: mouth [place] iron) EC 00 daily with Medic al tablet breakfast. Branch ferrous 2023-0 Yes [id number] 324mg Take 1 Un briana sulfate 324 1-31 tablet by [facility] of mg (65 mg 00:00: mouth [place] iron) EC 00 daily with Medic al tablet breakfast. Branch ferrous 3-0 Yes [id number] 324mg Take 1 Un briana sulfate 324 1-31 tablet by [facility] of mg (65 mg 00:00: mouth [place] iron) EC 00 daily with Medic al tablet breakfast. Branch ferrous 2023-0 Yes [id number] 324mg Take 1 Un briana sulfate 324 1-31 tablet by [facility] of mg (65 mg 00:00: mouth [place] iron) EC 00 daily with Medic al tablet breakfast. Branch ferrous 3-0 Yes [id number] 324mg Take 1 Un briana sulfate 324 1-31 tablet by [facility] of mg (65 mg 00:00: mouth [place] iron) EC 00 daily with Medic al tablet breakfast. Branch ferrous 3-0 Yes [id number] 324mg Take 1 Un briana sulfate 324 1-31 tablet by [facility] of mg (65 mg 00:00: mouth [place] iron) EC 00 daily with Medic al tablet breakfast. Branch ferrous 3-0 Yes [id number] 324mg Take 1 Un briana sulfate 324 1-31 tablet by [facility] of mg (65 mg 00:00: mouth [place] iron) EC 00 daily with Medic al tablet breakfast. Branch ferrous 3-0 Yes [id number] 324mg Take 1 Un briana sulfate 324 1-31 tablet by [facility] of mg (65 mg 00:00: mouth [place] iron) EC 00 daily with Medic al tablet breakfast. Branch ferrous 3-0 Yes [id number] 324mg Take 1 Un briana sulfate 324 1-31 tablet by [facility] of mg (65 mg 00:00: mouth [place] iron) EC 00 daily with Medic al tablet breakfast. Branch ferrous 3-0 Yes [id number] 324mg Take 1 Un bri[place] sulfate 324 1-31 tablet by [facility] of mg (65 mg 00:00: mouth [place] iron) EC 00 daily with Medic al tablet breakfast. Branch ferrous 2023-0 Yes [id number] 324mg Take 1 Un briana sulfate 324 1-31 tablet by [facility] of mg (65 mg 00:00: mouth [place] iron) EC 00 daily with Medic al tablet breakfast. Branch ferrous 2023-0 Yes [id number] 324mg Take 1 Un briana sulfate 324 1-31 tablet by [facility] of mg (65 mg 00:00: mouth [place] iron) EC 00 daily with Medic al tablet breakfast. Branch ferrous 3-0 Yes [id number] 324mg Take 1 Un briana sulfate 324 1-31 tablet by [facility] of mg (65 mg 00:00: mouth [place] iron) EC 00 daily with Medic al tablet breakfast. Branch ferrous 3-0 Yes [id number] 324mg Take 1 Un briana sulfate 324 1-31 tablet by [facility]y of mg (65 mg 00:00: mouth [place] iron) EC 00 daily with Medic al tablet breakfast. Branch ferrous 3-0 Yes [id number] 324mg Take 1 Un bri[place] sulfate 324 1-31 tablet by ity of mg (65 mg 00:00: mouth [place] iron) EC 00 daily with Medic al tablet breakfast. Branch ferrous 3-0 Yes [id number] 324mg Take 1 Un bri[place] sulfate 324 1-31 tablet by ity of mg (65 mg 00:00: mouth [place] iron) EC 00 daily with Medic al tablet breakfast. Branch ferrous 3-0 Yes [id number] 324mg Take 1 Un briana sulfate 324 1-31 tablet by ity of mg (65 mg 00:00: mouth [place] iron) EC 00 daily with Medic al tablet breakfast. Branch ferrous 3-0 Yes [id number] 324mg Take 1 Un briana sulfate 324 1-31 tablet by ity of mg (65 mg 00:00: mouth [place] iron) EC 00 daily with Medic al tablet breakfast. Branch ferrous 3-0 Yes [id number] 324mg Take 1 Un briana sulfate 324 1-31 tablet by ity of mg (65 mg 00:00: mouth [place] iron) EC 00 daily with Medic al tablet breakfast. Branch ferrous 3-0 Yes [id number] 324mg Take 1 Un [place] sulfate 324 1-31 tablet by ity of mg (65 mg 00:00: mouth [place] iron) EC 00 daily with Medic al tablet breakfast. Branch ferrous 3-0 Yes [id number] 324mg Take 1 Un bri[place] sulfate 324 1-31 tablet by [facility]y of mg (65 mg 00:00: mouth [place] iron) EC 00 daily with Medic al tablet breakfast. Branch ferrous 3-0 Yes [id number] 324mg Take 1 Un briana sulfate 324 1-31 tablet by ity of mg (65 mg 00:00: mouth [place] iron) EC 00 daily with Medic al tablet breakfast. Branch ferrous 3-0 Yes [id number] 324mg Take 1 Un briana sulfate 324 1-31 tablet by ity of mg (65 mg 00:00: mouth [place] iron) EC 00 daily with Medic al tablet breakfast. Branch ferrous 3-0 Yes [id number] 324mg Take 1 Un briana sulfate 324 1-31 tablet by ity of mg (65 mg 00:00: mouth [place] iron) EC 00 daily with Medic al tablet breakfast. Branch ferrous 2022-0 Yes [id number] 324mg Take 1 Un briana sulfate 324 1-31 tablet by ity of mg (65 mg 00:00: mouth [place] iron) EC 00 daily with Medic al tablet breakfast. Branch ferrous 2022-0 Yes [id number] 324mg Take 1 Un bri[place] sulfate 324 1-31 tablet by ity of mg (65 mg 00:00: mouth [place] iron) EC 00 daily with Medic al tablet breakfast. Branch ferrous 2022-0 Yes [id number] 324mg Take 1 Un bri[place] sulfate 324 1-31 tablet by ity of mg (65 mg 00:00: mouth [place] iron) EC 00 daily with Medic al tablet breakfast. Branch ferrous 2022-0 Yes [id number] 324mg Take 1 Un bri[place] sulfate 324 1-31 tablet by ity of mg (65 mg 00:00: mouth [place] iron) EC 00 daily with Medic al tablet breakfast. Branch ferrous 3-0 Yes [id number] 324mg Take 1 Un briana sulfate 324 1-31 tablet by ity of mg (65 mg 00:00: mouth [place] iron) EC 00 daily with Medic al tablet breakfast. Branch ferrous 3-0 Yes [id number] 324mg Take 1 Un briana sulfate 324 1-31 tablet by ity of mg (65 mg 00:00: mouth [place] iron) EC 00 daily with Medic al tablet breakfast. Branch ferrous 3-0 Yes [id number] 324mg Take 1 Un briana sulfate 324 1-31 tablet by ity of mg (65 mg 00:00: mouth [place] iron) EC 00 daily with Medic al tablet breakfast. Branch ferrous 3-0 Yes [id number] 324mg Take 1 Un briana sulfate 324 1-31 tablet by ity of mg (65 mg 00:00: mouth [place] iron) EC 00 daily with Medic al tablet breakfast. Branch ferrous 2023-0 Yes [id number] 324mg Take 1 Un briana sulfate 324 1-31 tablet by ity of mg (65 mg 00:00: mouth [place] iron) EC 00 daily with Medic al tablet breakfast. Branch ferrous 2022-0 Yes [id number] 324mg Take 1 Un bri[place] sulfate 324 1-31 tablet by ity of mg (65 mg 00:00: mouth [place] iron) EC 00 daily with Medic al tablet breakfast. Branch ferrous 3-0 Yes [id number] 324mg Take 1 Un [place] sulfate 324 1-31 tablet by ity of mg (65 mg 00:00: mouth [place] iron) EC 00 daily with Medic al tablet breakfast. Branch ferrous 2022-0 Yes [id number] 324mg Take 1 Un [place] sulfate 324 1-31 tablet by ity of mg (65 mg 00:00: mouth [place] iron) EC 00 daily with Medic al tablet breakfast. Branch ferrous 2022-0 Yes [id number] 324mg Take 1 Un [place] sulfate 324 1-31 tablet by ity of mg (65 mg 00:00: mouth [place] iron) EC 00 daily with Medic al tablet breakfast. Branch ferrous 2022-0 Yes [id number] 324mg Take 1 Un [place] sulfate 324 1-31 tablet by ity of mg (65 mg 00:00: mouth [place] iron) EC 00 daily with Medic al tablet breakfast. Branch ferrous 2022-0 Yes [id number] 324mg Take 1 Un bri[place] sulfate 324 1-31 tablet by ity of mg (65 mg 00:00: mouth [place] iron) EC 00 daily with Medic al tablet breakfast. Branch ferrous 3-0 Yes [id number] 324mg Take 1 Un [place] sulfate 324 1-31 tablet by ity of mg (65 mg 00:00: mouth [place] iron) EC 00 daily with Medic al tablet breakfast. Branch ferrous 3-0 Yes [id number] 324mg Take 1 Un [place] sulfate 324 1-31 tablet by ity of mg (65 mg 00:00: mouth [place] iron) EC 00 daily with Medic al tablet breakfast. Branch ferrous 3-0 Yes [id number] 324mg Take 1 Un [place] sulfate 324 1-31 tablet by ity of mg (65 mg 00:00: mouth [place] iron) EC 00 daily with Medic al tablet breakfast. Branch ferrous 3-0 Yes [id number] 324mg Take 1 Un [place] sulfate 324 1-31 tablet by ity of mg (65 mg 00:00: mouth [place] iron) EC 00 daily with Medic al tablet breakfast. Branch ferrous 3-0 Yes [id number] 324mg Take 1 Un briana sulfate 324 1-31 tablet by ity of mg (65 mg 00:00: mouth [place] iron) EC 00 daily with Medic al tablet breakfast. Branch ferrous 3-0 Yes [id number] 324mg Take 1 Un [place] sulfate 324 1-31 tablet by ity of mg (65 mg 00:00: mouth [place] iron) EC 00 daily with Medic al tablet breakfast. Branch ferrous 3-0 Yes [id number] 324mg Take 1 Un [place] sulfate 324 1-31 tablet by ity of mg (65 mg 00:00: mouth [place] iron) EC 00 daily with Medic al tablet breakfast. Branch ferrous 3-0 Yes [id number] 324mg Take 1 Un [place] sulfate 324 1-31 tablet by ity of mg (65 mg 00:00: mouth [place] iron) EC 00 daily with Medic al tablet breakfast. Branch ferrous 3-0 Yes [id number] 324mg Take 1 Un [place] sulfate 324 1-31 tablet by ity of mg (65 mg 00:00: mouth [place] iron) EC 00 daily with Medic al tablet breakfast. Branch ferrous 3-0 Yes [id number] 324mg Take 1 Un [place] sulfate 324 1-31 tablet by ity of mg (65 mg 00:00: mouth [place] iron) EC 00 daily with Medic al tablet breakfast. Branch ferrous 3-0 Yes [id number] 324mg Take 1 Un [place] sulfate 324 1-31 tablet by ity of mg (65 mg 00:00: mouth [place] iron) EC 00 daily with Medic al tablet breakfast. Branch ferrous 3-0 Yes [id number] 324mg Take 1 Un [place] sulfate 324 1-31 tablet by ity of mg (65 mg 00:00: mouth [place] iron) EC 00 daily with Medic al tablet breakfast. Branch ferrous 3-0 Yes [id number] 324mg Take 1 Un briana sulfate 324 1-31 tablet by ity of mg (65 mg 00:00: mouth [place] iron) EC 00 daily with Medic al tablet breakfast. Branch ferrous 3-0 Yes [id number] 324mg Take 1 Un [place] sulfate 324 1-31 tablet by [facility] mg (65 mg 00:00: mouth [place] [facility]) EC 00 daily with [facility] tablet breakfast. Branch ferrous 3-0 Yes [id number] 324mg Take 1 Un briana sulfate 324 1-31 tablet by [facility] mg (65 mg 00:00: mouth [place] [facility]) EC 00 daily with Medic al tablet breakfast. Branch ferrous 3-0 Yes [id number] 324mg Take 1 [facility] briana sulfate 324 1-31 tablet by [facility] mg (65 mg 00:00: mouth [place] [facility]) EC 00 daily with Medic al tablet breakfast. Branch ferrous 3-0 Yes [id number] 324mg Take 1 [facility] briana sulfate 324 1-31 tablet by [facility] mg (65 mg 00:00: mouth [place] [facility]) EC 00 daily with Medic al tablet breakfast. Branch ferrous 3-0 Yes [id number] 324mg Take 1 [facility] briana sulfate 324 1-31 tablet by [facility] mg (65 mg 00:00: mouth [place] [facility]) EC 00 daily with Medic al tablet breakfast. Branch ferrous 2022-0 Yes [id number] 324mg Take 1 Un briana sulfate 324 1-31 tablet by [facility] mg (65 mg 00:00: mouth [place] [facility]) EC 00 daily with Medic al tablet breakfast. Branch ferrous 2022-0 Yes [id number] 324mg Take 1 [facility] briana sulfate 324 1-31 tablet by [facility] mg (65 mg 00:00: mouth [place] [facility]) EC 00 daily with Medic al tablet breakfast. Branch ferrous 2022-0 3- No [id number] 324mg Take 1 U nivers sulfate 324 --27 tablet by it y of mg (65 mg 00:00: 00:00 mouth [place] [facility]) EC 00 :00 daily with Medic al tablet breakfast. Branch ferrous 3-0 3- No [id number] 324mg Take 1 U nivers sulfate 324 --27 tablet by it y of mg (65 mg 00:00: 00:00 mouth [place] [facility]) EC 00 :00 daily with Medic al tablet breakfast. Branch ferrous 3-0 3- No [id number] 324mg Take 1 U nivers sulfate 324 --27 tablet by [facility] y of mg (65 mg 00:00: 00:00 mouth [place] [facility]) EC 00 :00 daily with Medic al tablet breakfast. Branch losartan 50 2022-0 Yes [id number] 50mg Take 1 [facility] mg tablet 1-27 tablet by [facility] o f 00:00: mouth [place] 00 daily. [facility] furosemide 2022-0 Yes [id number] 20mg Take 1 [facility] nivers 20 mg 1-27 tablet by [facility] tablet 00:00: mouth [place] 00 daily. [facility] losartan 50 2022-0 Yes [id number] 50mg Take 1 [facility] mg tablet 1-27 tablet by [facility] o f 00:00: mouth [place] 00 daily. [facility] furosemide 2022-0 Yes [id number] 20mg Take 1 [facility] nivers 20 mg 1-27 tablet by [facility] tablet 00:00: mouth [place] 00 daily. [facility] losartan 50 2022-0 Yes [id number] 50mg Take 1 [facility] mg tablet 1-27 tablet by [facility] o f 00:00: mouth [place] 00 daily. [facility] furosemide 2022-0 Yes [id number] 20mg Take 1 [facility] nivers 20 mg 1-27 tablet by [facility] tablet 00:00: mouth [place] 00 daily. [facility] losartan 50 2022-0 Yes [id number] 50mg Take 1 [facility] mg tablet 1-27 tablet by [facility] o f 00:00: mouth [place] 00 daily. [facility] furosemide 2022-0 Yes [id number] 20mg Take 1 [facility] nivers 20 mg 1-27 tablet by [facility] tablet 00:00: mouth [place] 00 daily. [facility] losartan 50 2022-0 Yes [id number] 50mg Take 1 [facility] mg tablet 1-27 tablet by [facility] o f 00:00: mouth [place] 00 daily. [facility] furosemide 3-0 Yes [id number] 20mg Take 1 [facility] nivers 20 mg 1-27 tablet by [facility] tablet 00:00: mouth [place] 00 daily. [facility] losartan 50 2022-0 Yes [id number] 50mg Take 1 [facility] mg tablet 1-27 tablet by [facility] o f 00:00: mouth [place] 00 daily. [facility] furosemide 3-0 Yes [id number] 20mg Take 1 [facility] nivers 20 mg 1-27 tablet by [facility] tablet 00:00: mouth [place] 00 daily. [facility] losartan 50 2022-0 Yes [id number] 50mg Take 1 [facility] mg tablet 1-27 tablet by [facility] o f 00:00: mouth [place] 00 daily. [facility] furosemide 3-0 Yes [id number] 20mg Take 1 [facility] nivers 20 mg 1-27 tablet by [facility] tablet 00:00: mouth [place] 00 daily. [facility] losartan 50 2022-0 Yes [id number] 50mg Take 1 [facility] mg tablet 1-27 tablet by [facility] o f 00:00: mouth [place] 00 daily. [facility] furosemide 3-0 Yes [id number] 20mg Take 1 [facility] nivers 20 mg 1-27 tablet by [facility] of tablet 00:00: mouth [place] 00 daily. [facility] losartan 50 2022-0 Yes [id number] 50mg Take 1 [facility] mg tablet 1-27 tablet by [facility] o f 00:00: mouth [place] 00 daily. [facility] furosemide 3-0 Yes [id number] 20mg Take 1 [facility] nivers 20 mg 1-27 tablet by [facility] tablet 00:00: mouth [place] 00 daily. [facility] losartan 50 2022-0 Yes [id number] 50mg Take 1 [facility] mg tablet 1-27 tablet by [facility] o f 00:00: mouth [place] 00 daily. [facility] furosemide 3-0 Yes [id number] 20mg Take 1 [facility] nivers 20 mg 1-27 tablet by [facility] tablet 00:00: mouth [place] 00 daily. [facility] losartan 50 2022-0 Yes [id number] 50mg Take 1 [facility] mg tablet 1-27 tablet by [facility] o f 00:00: mouth [place] 00 daily. [facility] furosemide 3-0 Yes [id number] 20mg Take 1 [facility] nivers 20 mg 1-27 tablet by [facility] tablet 00:00: mouth [place] 00 daily. [facility] losartan 50 2022-0 Yes [id number] 50mg Take 1 [facility] mg tablet 1-27 tablet by [facility] o f 00:00: mouth [place] 00 daily. [facility] furosemide 3-0 Yes [id number] 20mg Take 1 [facility] nivers 20 mg 1-27 tablet by [facility] tablet 00:00: mouth [place] 00 daily. [facility] losartan 50 3-0 Yes [id number] 50mg Take 1 [facility] mg tablet 1-27 tablet by [facility] o f 00:00: mouth [place] 00 daily. [facility] furosemide 2023-0 Yes [id number] 20mg Take 1 [facility] nivers 20 mg 1-27 tablet by [facility] tablet 00:00: mouth [place] 00 daily. [facility] losartan 50 2022-0 Yes [id number] 50mg Take 1 [facility] mg tablet 1-27 tablet by [facility] o f 00:00: mouth [place] 00 daily. [facility] furosemide 2022-0 Yes [id number] 20mg Take 1 [facility] nivers 20 mg 1-27 tablet by [facility] tablet 00:00: mouth [place] 00 daily. [facility] losartan 50 2022-0 Yes [id number] 50mg Take 1 [facility] mg tablet 1-27 tablet by [facility] o f 00:00: mouth [place] 00 daily. [facility] furosemide 2022-0 Yes [id number] 20mg Take 1 [facility] nivers 20 mg 1-27 tablet by [facility] tablet 00:00: mouth [place] 00 daily. [facility] losartan 50 2022-0 Yes [id number] 50mg Take 1 [facility] mg tablet 1-27 tablet by [facility] o f 00:00: mouth [place] 00 daily. [facility] furosemide 2022-0 Yes [id number] 20mg Take 1 [facility] nivers 20 mg 1-27 tablet by [facility] tablet 00:00: mouth [place] 00 daily. [facility] furosemide 2022-0 Yes [id number] 20mg Take 1 [facility] nivers 20 mg 1-27 tablet by [facility] tablet 00:00: mouth [place] 00 daily. [facility] furosemide 2022-0 Yes [id number] 20mg Take 1 [facility] nivers 20 mg 1-27 tablet by [facility] tablet 00:00: mouth [place] 00 daily. [facility] furosemide 2022-0 Yes [id number] 20mg Take 1 [facility] nivers 20 mg 1-27 tablet by [facility] tablet 00:00: mouth [place] 00 daily. [facility] furosemide 2022-0 2022- No [id number] 20mg Take 1 [facility] 20 mg 1-27 04-04 tablet by [facility] tablet 00:00: 00:00 mouth [place] 00 :00 daily. [facility] furosemide 2022-0 3- No [id number] 20mg Take 1 [facility] 20 mg 1-27 04-04 tablet by [facility] tablet 00:00: 00:00 mouth [place] 00 :00 daily. [facility] losartan 50 2022-0 3- No [id number] 50mg Take 1 [facility] mg tablet 1-27 03-13 tablet by [facility] of 00:00: 00:00 mouth [place] 00 :00 daily. [facility] carvediloL 2021-02 Yes [id number] 6.25mg Take 1 [facility] 6.25 mg 2-09 tablet by [facility] tablet 00:00: mouth 2 [place] 00 (two) Medical times Branch daily with meals. atorvastati 2021-02 Yes [id number] 20mg Take 1 [facility] n 20 mg 2-09 tablet by [facility] tablet 00:00: mouth at [place] 00 bedtime. [facility] omeprazole 2021-02 Yes [id number] 1{tbl} Take 1 [facility] 20 mg TbLD 2-09 tablet by [facility] of 00:00: mouth [place] 00 daily. [facility] tolterodine 2021-02 Yes [id number] 2mg Take 1 [facility] [place] 2 mg 24 2-09 capsule by [facility] of hr capsule 00:00: mouth [place] 00 daily. [facility] carvediloL 2021-02 Yes [id number] 6.25mg Take 1 [facility] 6.25 mg 2-09 tablet by [facility] tablet 00:00: mouth 2 [place] 00 (two) Medical times [facility] daily with meals. atorvastati 2021-02 Yes [id number] 20mg Take 1 [facility] n 20 mg 2-09 tablet by [facility] tablet 00:00: mouth at [place] 00 bedtime. [facility] omeprazole 2021-02 Yes [id number] 1{tbl} Take 1 [facility] 20 mg TbLD 2-09 tablet by [facility] of 00:00: mouth [place] 00 daily. [facility] tolterodine 2021-02 Yes [id number] 2mg Take 1 [facility] [place] 2 mg 24 2-09 capsule by [facility] of hr capsule 00:00: mouth [place] 00 daily. [facility] carvediloL 2021-02 Yes [id number] 6.25mg Take 1 [facility] 6.25 mg 2-09 tablet by [facility] tablet 00:00: mouth 2 [place] 00 (two) Medical times [facility] daily with meals. atorvastati 2021-02 Yes [id number] 20mg Take 1 [facility] n 20 mg 2-09 tablet by [facility] of tablet 00:00: mouth at [place] 00 bedtime. [facility] omeprazole 2021-02 Yes [id number] 1{tbl} Take 1 [facility] 20 mg TbLD 2-09 tablet by [facility] of 00:00: mouth [place] 00 daily. [facility] tolterodine 2021-02 Yes [id number] 2mg Take 1 [facility] [place] 2 mg 24 2-09 capsule by [facility] of hr capsule 00:00: mouth [place] 00 daily. [facility] carvediloL 2021-02 Yes [id number] 6.25mg Take 1 [facility] 6.25 mg 2-09 tablet by [facility] tablet 00:00: mouth 2 00 (two) Medical times [facility] daily with meals. atorvastati 2021-02 Yes [id number] 20mg Take 1 [facility] n 20 mg 2-09 tablet by [facility] of tablet 00:00: mouth at [place] 00 bedtime. [facility] omeprazole 2021-02 Yes [id number] 1{tbl} Take 1 [facility] 20 mg TbLD 2-09 tablet by [facility] of 00:00: mouth [place] 00 daily. [facility] tolterodine 2021-02 Yes [id number] 2mg Take 1 [facility] [place] 2 mg 24 2-09 capsule by [facility] of hr capsule 00:00: mouth [place] 00 daily. [facility] carvediloL 2021-02 Yes [id number] 6.25mg Take 1 [facility] 6.25 mg 2-09 tablet by [facility] of tablet 00:00: mouth 2 00 (two) Medical times [facility] daily with meals. atorvastati 2021-02 Yes [id number] 20mg Take 1 [facility] n 20 mg 2-09 tablet by [facility] of tablet 00:00: mouth at [place] 00 bedtime. [facility] omeprazole 2021-02 Yes [id number] 1{tbl} Take 1 [facility] 20 mg TbLD 2-09 tablet by [facility] of 00:00: mouth [place] 00 daily. [facility] tolterodine 2021-02 Yes [id number] 2mg Take 1 [facility] [place] 2 mg 24 2-09 capsule by [facility] of hr capsule 00:00: mouth [place] 00 daily. [facility] carvediloL 2021-02 Yes [id number] 6.25mg Take 1 [facility] 6.25 mg 2-09 tablet by [facility] of tablet 00:00: mouth 2 00 (two) Medical times [facility] daily with meals. atorvastati 2021-02 Yes [id number] 20mg Take 1 [facility] n 20 mg 2-09 tablet by [facility] of tablet 00:00: mouth at [place] 00 bedtime. [facility] omeprazole 2021-02 Yes [id number] 1{tbl} Take 1 [facility] 20 mg TbLD 2-09 tablet by [facility] of 00:00: mouth [place] 00 daily. [facility] tolterodine 2021-02 Yes [id number] 2mg Take 1 [facility] [place] 2 mg 24 2-09 capsule by [facility] of hr capsule 00:00: mouth [place] 00 daily. [facility] carvediloL 2021-02 Yes [id number] 6.25mg Take 1 [facility] 6.25 mg 2-09 tablet by [facility] of tablet 00:00: mouth 2 (two) Medical times [facility] daily with meals. atorvastati 2021-02 Yes [id number] 20mg Take 1 [facility] n 20 mg 2-09 tablet by [facility] of tablet 00:00: mouth at [place] 00 bedtime. [facility] omeprazole 2021-02 Yes [id number] 1{tbl} Take 1 [facility] 20 mg TbLD 2-09 tablet by [facility] of 00:00: mouth [place] 00 daily. [facility] tolterodine 2021-02 Yes [id number] 2mg Take 1 [facility] [place] 2 mg 24 2-09 capsule by [facility] of hr capsule 00:00: mouth [place] 00 daily. [facility] carvediloL 2021-02 Yes [id number] 6.25mg Take 1 [facility] 6.25 mg 2-09 tablet by [facility] of tablet 00:00: mouth 2 (two) Medical times Branch daily with meals. atorvastati 2021-02 Yes [id number] 20mg Take 1 [facility] n 20 mg 2-09 tablet by [facility] of tablet 00:00: mouth at [place] 00 bedtime. [facility] omeprazole 2021-02 Yes [id number] 1{tbl} Take 1 [facility] 20 mg TbLD 2-09 tablet by [facility] of 00:00: mouth [place] 00 daily. [facility] tolterodine 2021-02 Yes [id number] 2mg Take 1 [facility] [place] 2 mg 24 2-09 capsule by [facility] of hr capsule 00:00: mouth [place] 00 daily. [facility] carvediloL 2021-02 Yes [id number] 6.25mg Take 1 [facility] 6.25 mg 2-09 tablet by [facility] of tablet 00:00: mouth 2 (two) Medical times Branch daily with meals. atorvastati 2021-02 Yes [id number] 20mg Take 1 [facility] n 20 mg 2-09 tablet by [facility] of tablet 00:00: mouth at [place] 00 bedtime. [facility] omeprazole 2021-02 Yes [id number] 1{tbl} Take 1 [facility] 20 mg TbLD 2-09 tablet by [facility] of 00:00: mouth [place] 00 daily. [facility] tolterodine 2021-02 Yes [id number] 2mg Take 1 [facility] [place] 2 mg 24 2-09 capsule by [facility] of hr capsule 00:00: mouth [place] 00 daily. [facility] carvediloL 2021-02 Yes [id number] 6.25mg Take 1 [facility] 6.25 mg 2-09 tablet by [facility] of tablet 00:00: mouth 2 (two) Medical times [facility] daily with meals. atorvastati 2021-02 Yes [id number] 20mg Take 1 [facility] n 20 mg 2-09 tablet by [facility] of tablet 00:00: mouth at [place] 00 bedtime. [facility] omeprazole 2021-02 Yes [id number] 1{tbl} Take 1 [facility] 20 mg TbLD 2-09 tablet by [facility] of 00:00: mouth [place] 00 daily. [facility] tolterodine 2021-02 Yes [id number] 2mg Take 1 [facility] [place] 2 mg 24 2-09 capsule by [facility] of hr capsule 00:00: mouth [place] 00 daily. [facility] carvediloL 2021-02 Yes [id number] 6.25mg Take 1 [facility] 6.25 mg 2-09 tablet by [facility] of tablet 00:00: mouth 2 (two) Medical times [facility] daily with meals. atorvastati 2021-02 Yes [id number] 20mg Take 1 [facility] n 20 mg 2-09 tablet by [facility] of tablet 00:00: mouth at [place] 00 bedtime. [facility] omeprazole 2021-02 Yes [id number] 1{tbl} Take 1 [facility] 20 mg TbLD 2-09 tablet by [facility] of 00:00: mouth [place] 00 daily. [facility] tolterodine 2021-02 Yes [id number] 2mg Take 1 [facility] [place] 2 mg 24 2-09 capsule by [facility] hr capsule 00:00: mouth [place] 00 daily. [facility] carvediloL 2021-02 Yes [id number] 6.25mg Take 1 [facility] 6.25 mg 2-09 tablet by [facility] of tablet 00:00: mouth 2 (two) Medical times [facility] daily with meals. atorvastati 2021-02 Yes [id number] 20mg Take 1 [facility] n 20 mg 2-09 tablet by [facility] of tablet 00:00: mouth at [place] 00 bedtime. [facility] omeprazole 2021-02 Yes [id number] 1{tbl} Take 1 [facility] 20 mg TbLD 2-09 tablet by [facility] of 00:00: mouth [place] 00 daily. [facility] tolterodine 2021-02 Yes [id number] 2mg Take 1 [facility] [place] 2 mg 24 2-09 capsule by [facility] hr capsule 00:00: mouth [place] 00 daily. [facility] carvediloL 2021-02 Yes [id number] 6.25mg Take 1 [facility] 6.25 mg 2-09 tablet by [facility] of tablet 00:00: mouth 2 00 (two) Medical times [facility] daily with meals. atorvastati 2021-02 Yes [id number] 20mg Take 1 [facility] n 20 mg 2-09 tablet by [facility] of tablet 00:00: mouth at [place] 00 bedtime. [facility] omeprazole 2021-02 Yes [id number] 1{tbl} Take 1 [facility] 20 mg TbLD 2-09 tablet by [facility] of 00:00: mouth [place] 00 daily. [facility] tolterodine 2021-02 Yes [id number] 2mg Take 1 [facility] [place] 2 mg 24 2-09 capsule by [facility] of hr capsule 00:00: mouth [place] 00 daily. [facility] carvediloL 2021-02 Yes [id number] 6.25mg Take 1 [facility] 6.25 mg 2-09 tablet by [facility] of tablet 00:00: mouth 2 (two) Medical times [facility] daily with meals. atorvastati 2021-02 Yes [id number] 20mg Take 1 [facility] n 20 mg 2-09 tablet by [facility] of tablet 00:00: mouth at [place] 00 bedtime. [facility] omeprazole 2021-02 Yes [id number] 1{tbl} Take 1 [facility] 20 mg TbLD 2-09 tablet by [facility] of 00:00: mouth [place] 00 daily. [facility] tolterodine 2021-02 Yes [id number] 2mg Take 1 [facility] [place] 2 mg 24 2-09 capsule by [facility] of hr capsule 00:00: mouth [place] 00 daily. [facility] carvediloL 2021-02 Yes [id number] 6.25mg Take 1 [facility] 6.25 mg 2-09 tablet by [facility] of tablet 00:00: mouth 2 00 (two) Medical times [facility] daily with meals. atorvastati 2021-02 Yes [id number] 20mg Take 1 [facility] n 20 mg 2-09 tablet by [facility] of tablet 00:00: mouth at [place] 00 bedtime. [facility] omeprazole 2021-02 Yes [id number] 1{tbl} Take 1 [facility] 20 mg TbLD 2-09 tablet by [facility] of 00:00: mouth [place] 00 daily. [facility] tolterodine 2021-02 Yes [id number] 2mg Take 1 [facility] [place] 2 mg 24 2-09 capsule by [facility] of hr capsule 00:00: mouth [place] 00 daily. [facility] carvediloL 2021-02 Yes [id number] 6.25mg Take 1 [facility] 6.25 mg 2-09 tablet by [facility] of tablet 00:00: mouth 2 [place] 00 (two) Medical times [facility] daily with meals. atorvastati 2021-02 Yes [id number] 20mg Take 1 [facility] n 20 mg 2-09 tablet by [facility] of tablet 00:00: mouth at [place] 00 bedtime. [facility] omeprazole 2021-02 Yes [id number] 1{tbl} Take 1 [facility] 20 mg TbLD 2-09 tablet by [facility] of 00:00: mouth [place] 00 daily. [facility] tolterodine 2021-02 Yes [id number] 2mg Take 1 [facility] [place] 2 mg 24 2-09 capsule by [facility] of hr capsule 00:00: mouth [place] 00 daily. [facility] carvediloL 2021-02 Yes [id number] 6.25mg Take 1 [facility] 6.25 mg 2-09 tablet by [facility] of tablet 00:00: mouth 2 (two) Medical times [facility] daily with meals. atorvastati 2021-02 Yes [id number] 20mg Take 1 [facility] n 20 mg 2-09 tablet by [facility] of tablet 00:00: mouth at [place] 00 bedtime. [facility] omeprazole 2021-02 Yes [id number] 1{tbl} Take 1 [facility] 20 mg TbLD 2-09 tablet by [facility] of 00:00: mouth [place] 00 daily. [facility] tolterodine 2021-02 Yes [id number] 2mg Take 1 [facility] [place] 2 mg 24 2-09 capsule by [facility] of hr capsule 00:00: mouth [place] 00 daily. [facility] carvediloL 2021-02 Yes [id number] 6.25mg Take 1 [facility] 6.25 mg 2-09 tablet by [facility] of tablet 00:00: mouth 2 00 (two) Medical times [facility] daily with meals. atorvastati 2021-02 Yes [id number] 20mg Take 1 [facility] n 20 mg 2-09 tablet by [facility] of tablet 00:00: mouth at [place] 00 bedtime. [facility] tolterodine 2021-02 Yes [id number] 2mg Take 1 [facility] [place] 2 mg 24 2-09 capsule by [facility] hr capsule 00:00: mouth [place] 00 daily. [facility] carvediloL 2021-02 Yes [id number] 6.25mg Take 1 [facility] 6.25 mg 2-09 tablet by [facility] of tablet 00:00: mouth 2 (two) Medical times [facility] daily with meals. atorvastati 2021-02 Yes [id number] 20mg Take 1 [facility] n 20 mg 2-09 tablet by [facility] of tablet 00:00: mouth at [place] 00 bedtime. [facility] tolterodine 2021-02 Yes [id number] 2mg Take 1 [facility] [place] 2 mg 24 2-09 capsule by [facility] of hr capsule 00:00: mouth 00 daily. [facility] carvediloL 2021-02 Yes [id number] 6.25mg Take 1 [facility] 6.25 mg 2-09 tablet by [facility] of tablet 00:00: mouth 2 (two) Medical times [facility] daily with meals. atorvastati 2021-02 Yes [id number] 20mg Take 1 [facility] n 20 mg 2-09 tablet by [facility] of tablet 00:00: mouth at [place] 00 bedtime. [facility] tolterodine 2021-02 Yes [id number] 2mg Take 1 [facility] [place] 2 mg 24 2-09 capsule by [facility] of hr capsule 00:00: mouth 00 daily. [facility] carvediloL 2021-02 Yes [id number] 6.25mg Take 1 [facility] 6.25 mg 2-09 tablet by [facility] of tablet 00:00: mouth 2 (two) Medical times [facility] daily with meals. atorvastati 2021-02 Yes [id number] 20mg Take 1 [facility] n 20 mg 2-09 tablet by [facility] of tablet 00:00: mouth at [place] 00 bedtime. [facility] tolterodine 2021-02 Yes [id number] 2mg Take 1 [facility] [place] 2 mg 24 2-09 capsule by [facility] of hr capsule 00:00: mouth 00 daily. [facility] carvediloL 2021-02 Yes [id number] 6.25mg Take 1 [facility] 6.25 mg 2-09 tablet by [facility] of tablet 00:00: mouth 2 (two) Medical times [facility] daily with meals. atorvastati 2021-02 Yes [id number] 20mg Take 1 [facility] n 20 mg 2-09 tablet by [facility] of tablet 00:00: mouth at [place] 00 bedtime. [facility] tolterodine 2021-02 Yes [id number] 2mg Take 1 [facility] [place] 2 mg 24 2-09 capsule by [facility] of hr capsule 00:00: mouth 00 daily. [facility] carvediloL 2021-02 Yes [id number] 6.25mg Take 1 [facility] 6.25 mg 2-09 tablet by [facility] of tablet 00:00: mouth 2 00 (two) Medical times [facility] daily with meals. atorvastati 2021-02 Yes [id number] 20mg Take 1 [facility] n 20 mg 2-09 tablet by [facility] of tablet 00:00: mouth at [place] 00 bedtime. [facility] tolterodine 2021-02 Yes [id number] 2mg Take 1 [facility] [place] 2 mg 24 2-09 capsule by [facility] of hr capsule 00:00: mouth 00 daily. [facility] carvediloL 2021-02 Yes [id number] 6.25mg Take 1 [facility] 6.25 mg 2-09 tablet by [facility] of tablet 00:00: mouth 2 (two) Medical times [facility] daily with meals. atorvastati 2021-02 Yes [id number] 20mg Take 1 [facility] n 20 mg 2-09 tablet by [facility] of tablet 00:00: mouth at [place] 00 bedtime. [facility] tolterodine 2021-02 Yes [id number] 2mg Take 1 [facility] [place] 2 mg 24 2-09 capsule by [facility] of hr capsule 00:00: mouth 00 daily. [facility] carvediloL 2021-02 Yes [id number] 6.25mg Take 1 [facility] 6.25 mg 2-09 tablet by [facility] of tablet 00:00: mouth 2 00 (two) Medical times [facility] daily with meals. atorvastati 2021-02 Yes [id number] 20mg Take 1 [facility] n 20 mg 2-09 tablet by [facility] of tablet 00:00: mouth at [place] 00 bedtime. [facility] tolterodine 2021-02 Yes [id number] 2mg Take 1 [facility] [place] 2 mg 24 2-09 capsule by [facility] of hr capsule 00:00: mouth 00 daily. [facility] carvediloL 2021-02 Yes [id number] 6.25mg Take 1 [facility] 6.25 mg 2-09 tablet by [facility] of tablet 00:00: mouth 2 (two) Medical times [facility] daily with meals. atorvastati 2021-02 Yes [id number] 20mg Take 1 [facility] n 20 mg 2-09 tablet by [facility] of tablet 00:00: mouth at [place] 00 bedtime. [facility] tolterodine 2021-02 Yes [id number] 2mg Take 1 [facility] [place] 2 mg 24 2-09 capsule by [facility] of hr capsule 00:00: mouth [place] 00 daily. [facility] carvediloL 2021-02 Yes [id number] 6.25mg Take 1 [facility] 6.25 mg 2-09 tablet by [facility] of tablet 00:00: mouth 2 (two) Medical times [facility] daily with meals. atorvastati 2021-02 Yes [id number] 20mg Take 1 [facility] n 20 mg 2-09 tablet by [facility] of tablet 00:00: mouth at [place] 00 bedtime. [facility] tolterodine 2021-02 Yes [id number] 2mg Take 1 [facility] [place] 2 mg 24 2-09 capsule by [facility] of hr capsule 00:00: mouth [place] 00 daily. [facility] carvediloL 2021-02 Yes [id number] 6.25mg Take 1 [facility] 6.25 mg 2-09 tablet by [facility] of tablet 00:00: mouth 2 (two) Medical times [facility] daily with meals. atorvastati 2021-02 Yes [id number] 20mg Take 1 [facility] n 20 mg 2-09 tablet by [facility] of tablet 00:00: mouth at [place] 00 bedtime. [facility] tolterodine 2021-02 Yes [id number] 2mg Take 1 [facility] [place] 2 mg 24 2-09 capsule by [facility] of hr capsule 00:00: mouth [place] 00 daily. [facility] carvediloL 2021-02 Yes [id number] 6.25mg Take 1 [facility] 6.25 mg 2-09 tablet by [facility] of tablet 00:00: mouth 2 (two) Medical times [facility] daily with meals. atorvastati 2021-02 Yes [id number] 20mg Take 1 [facility] n 20 mg 2-09 tablet by [facility] of tablet 00:00: mouth at [place] 00 bedtime. [facility] tolterodine 2021-02 Yes [id number] 2mg Take 1 [facility] [place] 2 mg 24 2-09 capsule by [facility] of hr capsule 00:00: mouth 00 daily. [facility] carvediloL 2021-02 Yes [id number] 6.25mg Take 1 [facility] 6.25 mg 2-09 tablet by [facility] of tablet 00:00: mouth 2 (two) Medical times [facility] daily with meals. atorvastati 2021-02 Yes [id number] 20mg Take 1 [facility] n 20 mg 2-09 tablet by [facility] of tablet 00:00: mouth at 00 bedtime. [facility] tolterodine 2021-02 Yes [id number] 2mg Take 1 [facility] [place] 2 mg 24 2-09 capsule by [facility] of hr capsule 00:00: mouth 00 daily. [facility] carvediloL 2021-02 Yes [id number] 6.25mg Take 1 [facility] 6.25 mg 2-09 tablet by [facility] of tablet 00:00: mouth 2 (two) Medical times [facility] daily with meals. atorvastati 2021-02 Yes [id number] 20mg Take 1 [facility] n 20 mg 2-09 tablet by [facility] of tablet 00:00: mouth at 00 bedtime. [facility] tolterodine 2021-02 Yes [id number] 2mg Take 1 [facility] [place] 2 mg 24 2-09 capsule by [facility] of hr capsule 00:00: mouth 00 daily. [facility] carvediloL 2021-02 Yes [id number] 6.25mg Take 1 [facility] 6.25 mg 2-09 tablet by [facility] of tablet 00:00: mouth 2 (two) Medical times [facility] daily with meals. atorvastati 2021-02 Yes [id number] 20mg Take 1 [facility] n 20 mg 2-09 tablet by [facility] of tablet 00:00: mouth at [place] 00 bedtime. [facility] tolterodine 2021-02 Yes [id number] 2mg Take 1 [facility] [place] 2 mg 24 2-09 capsule by [facility] of hr capsule 00:00: mouth 00 daily. [facility] carvediloL 2021-02 Yes [id number] 6.25mg Take 1 [facility] 6.25 mg 2-09 tablet by [facility] of tablet 00:00: mouth 2 00 (two) [facility] times [facility] daily with meals. atorvastati 2021-02 Yes [id number] 20mg Take 1 [facility] n 20 mg 2-09 tablet by [facility] of tablet 00:00: mouth at [place] 00 bedtime. [facility] tolterodine 2021-02 Yes [id number] 2mg Take 1 [facility] [place] 2 mg 24 2-09 capsule by [facility] of hr capsule 00:00: mouth 00 daily. [facility] carvediloL 2021-02 Yes [id number] 6.25mg Take 1 [facility] 6.25 mg 2-09 tablet by [facility] of tablet 00:00: mouth 2 (two) [facility] times [facility] daily with meals. atorvastati 2021-02 Yes [id number] 20mg Take 1 [facility] n 20 mg 2-09 tablet by [facility] of tablet 00:00: mouth at [place] 00 bedtime. [facility] tolterodine 2021-02 Yes [id number] 2mg Take 1 [facility] [place] 2 mg 24 2-09 capsule by [facility] of hr capsule 00:00: mouth 00 daily. [facility] carvediloL 2021-02 Yes [id number] 6.25mg Take 1 [facility] 6.25 mg 2-09 tablet by [facility] of tablet 00:00: mouth 2 (two) Medical times [facility] daily with meals. atorvastati 2021-02 Yes [id number] 20mg Take 1 [facility] n 20 mg 2-09 tablet by [facility] of tablet 00:00: mouth at [place] 00 bedtime. [facility] tolterodine 2021-02 Yes [id number] 2mg Take 1 [facility] [place] 2 mg 24 2-09 capsule by [facility] of hr capsule 00:00: mouth 00 daily. [facility] carvediloL 2021-02 Yes [id number] 6.25mg Take 1 [facility] 6.25 mg 2-09 tablet by [facility] tablet 00:00: mouth 2 (two) [facility] times [facility] daily with meals. atorvastati 2021-02 Yes [id number] 20mg Take 1 [facility] n 20 mg 2-09 tablet by [facility] tablet 00:00: mouth at [place] 00 bedtime. [facility] tolterodine 2021-02 Yes [id number] 2mg Take 1 [facility] [place] 2 [facility] 24 2-09 capsule by [facility] capsule 00:00: mouth 00 daily. [facility] carvediloL 2021-02 Yes [id number] 6.25mg Take 1 [facility] 6.25 mg 2-09 tablet by [facility] tablet 00:00: mouth 2 (two) [facility] times [facility] daily with meals. atorvastati 2021-02 Yes [id number] 20mg Take 1 [facility] n 20 mg 2-09 tablet by [facility] tablet 00:00: mouth at [place] 00 bedtime. [facility] tolterodine 2021-02 Yes [id number] 2mg Take 1 [facility] [place] 2 mg 24 2-09 capsule by [facility] capsule 00:00: mouth [place] 00 daily. [facility] carvediloL 2021-02 Yes [id number] 6.25mg Take 1 [facility] 6.25 mg 2-09 tablet by [facility] tablet 00:00: mouth 2 00 (two) [facility] times [facility] daily with meals. tolterodine 2021-02 Yes [id number] 2mg Take 1 [facility] [place] 2 mg 24 2-09 capsule by [facility] capsule 00:00: mouth [place] 00 daily. [facility] carvediloL 2021-02 Yes [id number] 6.25mg Take 1 [facility] 6.25 mg 2-09 tablet by [facility] tablet 00:00: mouth 00 (two) [facility] times [facility] daily with meals. tolterodine 2021-02 Yes [id number] 2mg Take 1 [facility] [place] 2 mg 24 2-09 capsule by [facility] capsule 00:00: mouth [place] 00 daily. [facility] carvediloL 2021-02 Yes [id number] 6.25mg Take 1 [facility] 6.25 mg 2-09 tablet by [facility] tablet 00:00: mouth 2 (two) [facility] times [facility] daily with meals. tolterodine 2021-02 Yes [id number] 2mg Take 1 [facility] [place] 2 mg 24 2-09 capsule by [facility] capsule 00:00: mouth [place] 00 daily. [facility] carvediloL 2021-02 Yes [id number] 6.25mg Take 1 [facility] 6.25 mg 2-09 tablet by [facility] tablet 00:00: mouth 2 00 (two) [facility] times [facility] daily with meals. tolterodine 2021-02 Yes [id number] 2mg Take 1 [facility] [place] 2 mg 24 2-09 capsule by [facility] capsule 00:00: mouth [place] 00 daily. [facility] carvediloL 2021-02 Yes [id number] 6.25mg Take 1 [facility] 6.25 mg 2-09 tablet by [facility] tablet 00:00: mouth 2 (two) [facility] times [facility] daily with meals. tolterodine 2021-02 Yes [id number] 2mg Take 1 [facility] [place] 2 mg 24 2-09 capsule by [facility] capsule 00:00: mouth [place] 00 daily. [facility] carvediloL 2021-02 Yes [id number] 6.25mg Take 1 [facility] 6.25 mg 2-09 tablet by [facility] tablet 00:00: mouth 2 (two) [facility] times [facility] daily with meals. tolterodine 2021-02 Yes [id number] 2mg Take 1 [facility] [place] 2 mg 24 2-09 capsule by [facility] capsule 00:00: mouth [place] 00 daily. [facility] carvediloL 2021-02 Yes [id number] 6.25mg Take 1 [facility] 6.25 mg 2-09 tablet by [facility] tablet 00:00: mouth (two) [facility] times [facility] daily with meals. tolterodine 2021-02 Yes [id number] 2mg Take 1 [facility] [place] 2 mg 24 2-09 capsule by [facility] capsule 00:00: mouth 00 daily. [facility] carvediloL 2021-02 Yes [id number] 6.25mg Take 1 [facility] 6.25 mg 2-09 tablet by [facility] tablet 00:00: mouth (two) [facility] times [facility] daily with meals. tolterodine 2021-02 Yes [id number] 2mg Take 1 [facility] [place] 2 mg 24 2-09 capsule by [facility] capsule 00:00: mouth [place] 00 daily. [facility] carvediloL 2021-02 Yes [id number] 6.25mg Take 1 [facility] 6.25 mg 2-09 tablet by [facility] tablet 00:00: mouth (two) [facility] times [facility] daily with meals. tolterodine 2021-02 Yes [id number] 2mg Take 1 [facility] [place] 2 mg 24 2-09 capsule by [facility] capsule 00:00: mouth [place] 00 daily. [facility] carvediloL 2021-02 Yes [id number] 6.25mg Take 1 [facility] 6.25 mg 2-09 tablet by [facility] tablet 00:00: mouth 2 (two) [facility] times [facility] daily with meals. tolterodine 2021-02 Yes [id number] 2mg Take 1 [facility] [place] 2 mg 24 2-09 capsule by [facility] capsule 00:00: mouth [place] 00 daily. [facility] carvediloL 2021-02 Yes [id number] 6.25mg Take 1 [facility] 6.25 mg 2-09 tablet by [facility] tablet 00:00: mouth (two) [facility] times [facility] daily with meals. tolterodine 2021-02 Yes [id number] 2mg Take 1 [facility] [place] 2 mg 24 2-09 capsule by [facility] capsule 00:00: mouth [place] 00 daily. [facility] carvediloL 2021-02 Yes [id number] 6.25mg Take 1 [facility] 6.25 mg 2-09 tablet by [facility] tablet 00:00: mouth 2 (two) [facility] times [facility] daily with meals. tolterodine 2021-02 Yes [id number] 2mg Take 1 [facility] [place] 2 mg 24 2-09 capsule by [facility] capsule 00:00: mouth 00 daily. [facility] carvediloL 2021-02 Yes [id number] 6.25mg Take 1 [facility] 6.25 mg 2-09 tablet by [facility] tablet 00:00: mouth (two) [facility] times [facility] daily with meals. tolterodine 2021-02 Yes [id number] 2mg Take 1 [facility] [place] 2 mg 24 2-09 capsule by [facility] capsule 00:00: mouth 00 daily. [facility] carvediloL 2021-02 Yes [id number] 6.25mg Take 1 [facility] 6.25 mg 2-09 tablet by [facility] tablet 00:00: mouth (two) [facility] times [facility] daily with meals. tolterodine 2021-02 Yes [id number] 2mg Take 1 [facility] [place] 2 mg 24 2-09 capsule by [facility] capsule 00:00: mouth 00 daily. [facility] carvediloL 2021-02 Yes [id number] 6.25mg Take 1 [facility] 6.25 mg 2-09 tablet by [facility] tablet 00:00: mouth (two) [facility] times [facility] daily with meals. tolterodine 2021-02 Yes [id number] 2mg Take 1 [facility] [place] 2 mg 24 2-09 capsule by [facility] capsule 00:00: mouth 00 daily. [facility] carvediloL 2021-02 Yes [id number] 6.25mg Take 1 [facility] 6.25 mg 2-09 tablet by [facility] tablet 00:00: mouth (two) [facility] times [facility] daily with meals. tolterodine 2021-02 Yes [id number] 2mg Take 1 [facility] [place] 2 mg 24 2-09 capsule by [facility] capsule 00:00: mouth [place] 00 daily. [facility] carvediloL 2021-02 Yes [id number] 6.25mg Take 1 [facility] 6.25 mg 2-09 tablet by [facility] tablet 00:00: mouth (two) [facility] times [facility] daily with meals. tolterodine 2021-02 Yes [id number] 2mg Take 1 [facility] [place] 2 mg 24 2-09 capsule by [facility] capsule 00:00: mouth [place] 00 daily. [facility] carvediloL 2021-02 Yes [id number] 6.25mg Take 1 [facility] 6.25 mg 2-09 tablet by [facility] tablet 00:00: mouth (two) [facility] times [facility] daily with meals. tolterodine 2021-02 Yes [id number] 2mg Take 1 [facility] [place] 2 mg 24 2-09 capsule by [facility] capsule 00:00: mouth 00 daily. [facility] carvediloL 2021-02 Yes [id number] 6.25mg Take 1 [facility] 6.25 mg 2-09 tablet by [facility] tablet 00:00: mouth (two) [facility] times [facility] daily with meals. tolterodine 2021-02 Yes [id number] 2mg Take 1 [facility] [place] 2 mg 24 2-09 capsule by [facility] capsule 00:00: mouth [place] 00 daily. [facility] carvediloL 2021-02 Yes [id number] 6.25mg Take 1 [facility] 6.25 mg 2-09 tablet by [facility] tablet 00:00: mouth (two) [facility] times [facility] daily with meals. tolterodine 2021-02 Yes [id number] 2mg Take 1 [facility] [place] 2 mg 24 2-09 capsule by [facility] capsule 00:00: mouth 00 daily. [facility] carvediloL 2021-02 Yes [id number] 6.25mg Take 1 [facility] 6.25 mg 2-09 tablet by [facility] tablet 00:00: mouth 2 (two) [facility] times [facility] daily with meals. tolterodine 2021-02 Yes [id number] 2mg Take 1 [facility] [place] 2 mg 24 2-09 capsule by [facility] capsule 00:00: mouth [place] 00 daily. [facility] carvediloL 2021-02 Yes [id number] 6.25mg Take 1 [facility] 6.25 mg 2-09 tablet by [facility] tablet 00:00: mouth (two) [facility] times [facility] daily with meals. tolterodine 2021-02 Yes [id number] 2mg Take 1 [facility] [place] 2 mg 24 2-09 capsule by [facility] capsule 00:00: mouth [place] 00 daily. [facility] carvediloL 2021-02 Yes [id number] 6.25mg Take 1 [facility] 6.25 mg 2-09 tablet by [facility] tablet 00:00: mouth (two) [facility] times [facility] daily with meals. tolterodine 2021-02 Yes [id number] 2mg Take 1 [facility] [place] 2 mg 24 2-09 capsule by [facility] capsule 00:00: mouth 00 daily. [facility] carvediloL 2021-02 Yes [id number] 6.25mg Take 1 [facility] 6.25 mg 2-09 tablet by [facility] tablet 00:00: mouth (two) [facility] times [facility] daily with meals. tolterodine 2021-02 Yes [id number] 2mg Take 1 [facility] [place] 2 mg 24 2-09 capsule by [facility] capsule 00:00: mouth 00 daily. [facility] carvediloL 2021-02 Yes [id number] 6.25mg Take 1 [facility] 6.25 mg 2-09 tablet by [facility] tablet 00:00: mouth (two) [facility] times [facility] daily with meals. tolterodine 2021-02 Yes [id number] 2mg Take 1 [facility] [place] 2 mg 24 2-09 capsule by [facility] capsule 00:00: mouth 00 daily. [facility] carvediloL 2021-02 Yes [id number] 6.25mg Take 1 [facility] 6.25 mg 2-09 tablet by [facility] tablet 00:00: mouth (two) [facility] times [facility] daily with meals. tolterodine 2021-02 Yes [id number] 2mg Take 1 [facility] [place] 2 mg 24 2-09 capsule by [facility] capsule 00:00: mouth 00 daily. [facility] carvediloL 2021-02 Yes [id number] 6.25mg Take 1 [facility] 6.25 mg 2-09 tablet by [facility] tablet 00:00: mouth (two) [facility] times [facility] daily with meals. tolterodine 2021-02 Yes [id number] 2mg Take 1 [facility] [place] 2 mg 24 2-09 capsule by [facility] capsule 00:00: mouth [place] 00 daily. [facility] carvediloL 2021-02 Yes [id number] 6.25mg Take 1 [facility] 6.25 mg 2-09 tablet by [facility] tablet 00:00: mouth 2 (two) [facility] times [facility] daily with meals. tolterodine 2021-02 Yes [id number] 2mg Take 1 [facility] [place] 2 mg 24 2-09 capsule by [facility] capsule 00:00: mouth [place] 00 daily. [facility] carvediloL 2021-02 Yes [id number] 6.25mg Take 1 [facility] 6.25 mg 2-09 tablet by [facility] tablet 00:00: mouth (two) [facility] times [facility] daily with meals. tolterodine 2021-02 Yes [id number] 2mg Take 1 [facility] [place] 2 mg 24 2-09 capsule by [facility] hr capsule 00:00: mouth [place] 00 daily. [facility] carvediloL 2021-02 Yes [id number] 6.25mg Take 1 [facility] 6.25 mg 2-09 tablet by [facility] tablet 00:00: mouth (two) [facility] times [facility] daily with meals. tolterodine 2021-02 Yes [id number] 2mg Take 1 [facility] [place] 2 mg 24 2-09 capsule by [facility] hr capsule 00:00: mouth [place] 00 daily. [facility] carvediloL 2021-02 Yes [id number] 6.25mg Take 1 [facility] 6.25 mg 2-09 tablet by [facility] tablet 00:00: mouth (two) [facility] times [facility] daily with meals. tolterodine 2021-02 Yes [id number] 2mg Take 1 [facility] [place] 2 mg 24 2-09 capsule by [facility] hr capsule 00:00: mouth [place] 00 daily. [facility] carvediloL 2021-02 Yes [id number] 6.25mg Take 1 [facility] 6.25 mg 2-09 tablet by [facility] tablet 00:00: mouth 2 (two) [facility] times [facility] daily with meals. tolterodine 2021-02 Yes [id number] 2mg Take 1 [facility] [place] 2 mg 24 2-09 capsule by [facility] hr capsule 00:00: mouth [place] 00 daily. [facility] carvediloL 2021-02 Yes [id number] 6.25mg Take 1 [facility] 6.25 mg 2-09 tablet by [facility] tablet 00:00: mouth (two) [facility] times [facility] daily with meals. tolterodine 2021-02 Yes [id number] 2mg Take 1 [facility] [place] 2 mg 24 2-09 capsule by [facility] hr capsule 00:00: mouth [place] 00 daily. [facility] carvediloL 2021-02 Yes [id number] 6.25mg Take 1 [facility] 6.25 mg 2-09 tablet by [facility] tablet 00:00: mouth 2 (two) [facility] times [facility] daily with meals. tolterodine 2021-02 Yes [id number] 2mg Take 1 [facility] [place] 2 mg 24 2-09 capsule by [facility] hr capsule 00:00: mouth 00 daily. [facility] carvediloL 2021-02 Yes [id number] 6.25mg Take 1 [facility] 6.25 mg 2-09 tablet by [facility] tablet 00:00: mouth (two) [facility] times [facility] daily with meals. tolterodine 2021-02 Yes [id number] 2mg Take 1 [facility] [place] 2 mg 24 2-09 capsule by [facility] hr capsule 00:00: mouth [place] 00 daily. [facility] carvediloL 2021-02 Yes [id number] 6.25mg Take 1 [facility] 6.25 mg 2-09 tablet by [facility] tablet 00:00: mouth (two) [facility] times [facility] daily with meals. tolterodine 2021-02 Yes [id number] 2mg Take 1 [facility] [place] 2 mg 24 2-09 capsule by [facility] hr capsule 00:00: mouth [place] 00 daily. [facility] carvediloL 2021-02 Yes [id number] 6.25mg Take 1 [facility] 6.25 mg 2-09 tablet by [facility] tablet 00:00: mouth 2 (two) [facility] times [facility] daily with meals. tolterodine 2021-02 Yes [id number] 2mg Take 1 [facility] [place] 2 mg 24 2-09 capsule by [facility] hr capsule 00:00: mouth [place] 00 daily. [facility] tolterodine 2021-02 Yes [id number] 2mg Take 1 [facility] [place] 2 mg 24 2-09 capsule by [facility] hr capsule 00:00: mouth [place] 00 daily. [facility] tolterodine 2021-02 Yes [id number] 2mg Take 1 [facility] [place] 2 mg 24 2-09 capsule by [facility] capsule 00:00: mouth [place] 00 daily. [facility] tolterodine 2021-02 Yes [id number] 2mg Take 1 [facility] [place] 2 mg 24 2-09 capsule by [facility] hr capsule 00:00: mouth [place] 00 daily. [facility] tolterodine 2021-02 Yes [id number] 2mg Take 1 [facility] [place] 2 mg 24 2-09 capsule by [facility] hr capsule 00:00: mouth [place] 00 daily. [facility] tolterodine 2021-02 Yes [id number] 2mg Take 1 [facility] [place] 2 mg 24 2-09 capsule by [facility] hr capsule 00:00: mouth [place] 00 daily. [facility] tolterodine 2021-02 Yes [id number] 2mg Take 1 [facility] [place] 2 mg 24 2-09 capsule by [facility] hr capsule 00:00: mouth [place] 00 daily. [facility] tolterodine 2021-02 Yes [id number] 2mg Take 1 [facility] [place] 2 mg 24 2-09 capsule by [facility] hr capsule 00:00: mouth [place] 00 daily. [facility] tolterodine 2021-02 Yes [id number] 2mg Take 1 [facility] [place] 2 mg 24 2-09 capsule by [facility] hr capsule 00:00: mouth [place] 00 daily. [facility] tolterodine 2021-02 Yes [id number] 2mg Take 1 [facility] [place] 2 mg 24 2-09 capsule by [facility] hr capsule 00:00: mouth [place] 00 daily. [facility] tolterodine 2021-02 Yes [id number] 2mg Take 1 [facility] [place] 2 mg 24 2-09 capsule by [facility] hr capsule 00:00: mouth [place] 00 daily. [facility] tolterodine 2021-02 Yes [id number] 2mg Take 1 [facility] [place] 2 mg 24 2-09 capsule by [facility] hr capsule 00:00: mouth [place] 00 daily. [facility] tolterodine 2021-02 Yes [id number] 2mg Take 1 [facility] [place] 2 mg 24 2-09 capsule by [facility] hr capsule 00:00: mouth [place] 00 daily. [facility] tolterodine 2021-02 Yes [id number] 2mg Take 1 [facility] 2 mg 24 2-09 capsule by [facility] hr capsule 00:00: mouth [place] 00 daily. [facility] tolterodine 2021-02 Yes [id number] 2mg Take 1 [facility] [place] 2 mg 24 2-09 capsule by [facility] hr capsule 00:00: mouth [place] 00 daily. [facility] tolterodine 2021-02 Yes [id number] 2mg Take 1 [facility] [place] 2 mg 24 2-09 capsule by [facility] hr capsule 00:00: mouth [place] 00 daily. [facility] tolterodine 2021-02 Yes [id number] 2mg Take 1 [facility] 2 mg 24 2-09 capsule by [facility] hr capsule 00:00: mouth [place] 00 daily. [facility] tolterodine 2021-02 Yes [id number] 2mg Take 1 [facility] 2 mg 24 2-09 capsule by [facility] hr capsule 00:00: mouth [place] 00 daily. [facility] tolterodine 2021-02 Yes [id number] 2mg Take 1 [facility] [place] 2 mg 24 2-09 capsule by [facility] hr capsule 00:00: mouth [place] 00 daily. [facility] tolterodine 2021-02 Yes [id number] 2mg Take 1 [facility] [place] 2 mg 24 2-09 capsule by [facility] hr capsule 00:00: mouth [place] 00 daily. [facility] tolterodine 2021-02 Yes [id number] 2mg Take 1 [facility] [place] 2 mg 24 2-09 capsule by [facility] hr capsule 00:00: mouth [place] 00 daily. [facility] tolterodine 2021-02 Yes [id number] 2mg Take 1 [facility] 2 mg 24 2-09 capsule by [facility] hr capsule 00:00: mouth [place] 00 daily. [facility] carvediloL 2021-02- No [id number] 6.25mg Take 1 [facility] 6.25 mg 2-27 tablet by [facility] tablet 00:00: 00:00 mouth 2 [place] 00 :00 (two) [facility] times [facility] daily with meals. carvediloL 2021-02- No [id number] 6.25mg Take 1 [facility] 6.25 mg 03-24-27 tablet by [facility] tablet 00:00: 00:00 mouth 2 [place] 00 :00 (two) [facility] times [facility] daily with meals. carvediloL 2021-02- No [id number] 6.25mg Take 1 [facility] 6.25 mg 2-10 19-27 tablet by [facility] tablet 00:00: 00:00 mouth 2 [place] 00 :00 (two) [facility] times [facility] daily with meals. atorvastati 2021-02- No [id number] 20mg Take 1 [facility] n 20 mg 03-24 tablet by [facility] tablet 00:00: 00:00 mouth at [place] 00 :00 bedtime. [facility] atorvastati 2021-02- No [id number] 20mg Take 1 [facility] n 20 mg 03-24 tablet by [facility] tablet 00:00: 00:00 mouth at [place] 00 :00 bedtime. [facility] atorvastati 2021-02- No [id number] 20mg Take 1 [facility] n 20 mg 03-24 tablet by [facility] of tablet 00:00: 00:00 mouth at [place] 00 :00 bedtime. [facility] carvediloL 2021-02 Yes [id number] 12.5mg Take 1 [facility] 12.5 mg 1-11 tablet by [facility] of tablet 00:00: mouth 2 [place] 00 (two) Medical times [facility] daily with meals. Additional refills per cardio carvediloL 2021-02 Yes [id number] 12.5mg Take 1 [facility] 12.5 mg -11 tablet by [facility] of tablet 00:00: mouth 2 [place] 00 (two) Medical times [facility] daily with meals. Additional refills per cardio carvediloL 2021-02- No [id number] 12.5mg Take 1 [facility] 12.5 mg -11 - tablet by [facility] of tablet 00:00: 00:00 mouth 2 [place] 00 :00 (two) [facility] times [facility] daily with meals. Additional refills per cardio carvediloL 2021-02- No [id number] 12.5mg Take 1 [facility] 12.5 mg -11 - tablet by [facility] of tablet 00:00: 00:00 mouth 2 [place] 00 :00 (two) Medical times Branch daily [...] 00 daily with [facility] breakfast Branch spironolact 2021-02- No 25mg Take 25 mg [facility] one 25 mg 0-21 10-21 by mouth ity o f tablet 14:33: 00:00 daily. [place] 53 :00 [facility] spironolact 2021-02- No 25mg Take 25 mg [facility] one 25 mg 0-21 10-21 by mouth ity o f tablet 14:33: 00:00 daily. [place] 53 :00 [facility] benzonatate 2021-02 Yes [id number] 200mg Take 1 [facility] 200 mg 0-21 capsule by [facility] of capsule 00:00: mouth 3 [place] 00 (three) Medical times Branch daily as needed for Cough. atorvastati 2021-02 Yes [id number] 40mg Take 1 [facility] n 40 mg 0-21 tablet by [facility] of tablet 00:00: mouth at [place] 00 bedtime. [facility] losartan 25 2021-02 Yes [id number] 25mg Take 1 [facility] mg tablet 0-21 tablet by ity o f 00:00: mouth at [place] 00 bedtime. [facility] furosemide 2021-02 Yes [id number] 20mg Take 1 [facility] 20 mg 0-21 tablet by [facility] of tablet 00:00: mouth [place] 00 daily. [facility] spironolact 2021-02 Yes [id number] 25mg Take 1 [facility] one 25 mg 0-21 tablet by [facility] o f tablet 00:00: mouth [place] 00 daily. [facility] benzonatate 2021-02 Yes [id number] 200mg Take 1 [facility] 200 mg 0-21 capsule by [facility] of capsule 00:00: mouth 3 00 (three) Medical times [facility] daily as needed for Cough. atorvastati 2021-02 Yes [id number] 40mg Take 1 [facility] n 40 mg 0-21 tablet by [facility] of tablet 00:00: mouth at [place] 00 bedtime. [facility] losartan 25 2021-02 Yes [id number] 25mg Take 1 [facility] mg tablet 0-21 tablet by ity o f 00:00: mouth at [place] 00 bedtime. [facility] furosemide 2021-02 Yes [id number] 20mg Take 1 [facility] 20 mg 0-21 tablet by [facility] of tablet 00:00: mouth [place] 00 daily. [facility] spironolact 2021-02 Yes [id number] 25mg Take 1 [facility] one 25 mg 0-21 tablet by ity o f tablet 00:00: mouth [place] 00 daily. [facility] benzonatate 2021-02 Yes [id number] 200mg Take 1 [facility] 200 mg 0-21 capsule by [facility] of capsule 00:00: mouth 3 [place] 00 (three) Medical times [facility] daily as needed for Cough. atorvastati 2021-02 Yes [id number] 40mg Take 1 [facility] n 40 mg 0-21 tablet by [facility] of tablet 00:00: mouth at [place] 00 bedtime. [facility] losartan 25 2021-02 Yes [id number] 25mg Take 1 [facility] mg tablet 0-21 tablet by ity o f 00:00: mouth at [place] 00 bedtime. [facility] furosemide 2021-02 Yes [id number] 20mg Take 1 [facility] 20 mg 0-21 tablet by [facility] of tablet 00:00: mouth [place] 00 daily. [facility] spironolact 2021-02 Yes [id number] 25mg Take 1 [facility] one 25 mg 0-21 tablet by it[facility] o f tablet 00:00: mouth [place] 00 daily. [facility] benzonatate 2021-02 Yes [id number] 200mg Take 1 [facility] 200 mg 0-21 capsule by [facility] of capsule 00:00: mouth 3 [place] 00 (three) Medical times Branch daily as needed for Cough. atorvastati 2021-02 Yes [id number] 40mg Take 1 [facility] n 40 mg 0-21 tablet by [facility] of tablet 00:00: mouth at [place] 00 bedtime. [facility] losartan 25 2021-02 Yes [id number] 25mg Take 1 [facility] mg tablet 0-21 tablet by ity o f 00:00: mouth at [place] 00 bedtime. [facility] furosemide 2021-02 Yes [id number] 20mg Take 1 [facility] 20 mg 0-21 tablet by ity of tablet 00:00: mouth [place] 00 daily. [facility] spironolact 2021-02 Yes [id number] 25mg Take 1 [facility] one 25 mg 0-21 tablet by ity o f tablet 00:00: mouth [place] 00 daily. [facility] benzonatate 2021-02 Yes [id number] 200mg Take 1 [facility] 200 mg 0-21 capsule by [facility] of capsule 00:00: mouth 3 [place] 00 (three) Medical times Branch daily as needed for Cough. atorvastati 2021-02 Yes [id number] 40mg Take 1 [facility] n 40 mg 0-21 tablet by it[facility] of tablet 00:00: mouth at [place] 00 bedtime. [facility] losartan 25 2021-02 Yes [id number] 25mg Take 1 [facility] mg tablet 0-21 tablet by ity o f 00:00: mouth at [place] 00 bedtime. [facility] furosemide 2021-02 Yes [id number] 20mg Take 1 [facility] 20 mg 0-21 tablet by it[facility] of tablet 00:00: mouth [place] 00 daily. [facility] spironolact 2021-02 Yes [id number] 25mg Take 1 [facility] one 25 mg 0-21 tablet by ity o f tablet 00:00: mouth [place] 00 daily. [facility] benzonatate 2021-02 Yes [id number] 200mg Take 1 [facility] 200 mg 0-21 capsule by ity of capsule 00:00: mouth 3 [place] 00 (three) Medical times Branch daily as needed for Cough. atorvastati 2021-02 Yes [id number] 40mg Take 1 [facility] n 40 mg 0-21 tablet by it[facility] of tablet 00:00: mouth at [place] 00 bedtime. [facility] losartan 25 2021-02 Yes [id number] 25mg Take 1 [facility] mg tablet 0-21 tablet by ity o f 00:00: mouth at [place] 00 bedtime. [facility] furosemide 2021-02 Yes [id number] 20mg Take 1 [facility] 20 mg 0-21 tablet by ity of tablet 00:00: mouth [place] 00 daily. [facility] spironolact 2021-02 Yes [id number] 25mg Take 1 [facility] one 25 mg 0-21 tablet by ity o f tablet 00:00: mouth [place] 00 daily. [facility] losartan 25 2021-02 Yes [id number] 25mg Take 1 [facility] mg tablet 0-21 tablet by ity o f 00:00: mouth at [place] 00 bedtime. [facility] furosemide 2021-02 Yes [id number] 20mg Take 1 [facility] 20 mg 0-21 tablet by it[facility] of tablet 00:00: mouth [place] 00 daily. [facility] spironolact 2021-02 Yes [id number] 25mg Take 1 [facility] one 25 mg 0-21 tablet by ity o f tablet 00:00: mouth [place] 00 daily. [facility] losartan 25 2021-02 Yes [id number] 25mg Take 1 [facility] mg tablet 0-21 tablet by ity o f 00:00: mouth at [place] 00 bedtime. [facility] furosemide 2021-02 Yes [id number] 20mg Take 1 [facility] n[facility] 20 mg 0-21 tablet by ity of tablet 00:00: mouth [place] 00 daily. [facility] spironolact 2021-02 Yes [id number] 25mg Take 1 [facility] one 25 mg 0-21 tablet by ity o f tablet 00:00: mouth [place] 00 daily. [facility] losartan 25 2021-02 Yes [id number] 25mg Take 1 [facility] mg tablet 0-21 tablet by ity o f 00:00: mouth at [place] 00 bedtime. [facility] furosemide 2021-02 Yes [id number] 20mg Take 1 [facility] nivers 20 mg 0-21 tablet by ity of tablet 00:00: mouth [place] 00 daily. [facility] spironolact 2021-02 Yes [id number] 25mg Take 1 [facility] one 25 mg 0-21 tablet by ity o f tablet 00:00: mouth [place] 00 daily. [facility] losartan 25 2021-02 Yes [id number] 25mg Take 1 [facility] mg tablet 0-21 tablet by ity o f 00:00: mouth at [place] 00 bedtime. [facility] furosemide 2021-02 Yes [id number] 20mg Take 1 [facility]ivers 20 mg 0-21 tablet by ity of tablet 00:00: mouth [place] 00 daily. [facility] spironolact 2021-02 Yes [id number] 25mg Take 1 [facility] one 25 mg 0-21 tablet by ity o f tablet 00:00: mouth [place] 00 daily. [facility] spironolact 2021-02 Yes [id number] 25mg Take 1 [facility] one 25 mg 0-21 tablet by ity o f tablet 00:00: mouth [place] 00 daily. [facility] spironolact 2021-02 Yes [id number] 25mg Take 1 [facility] one 25 mg 0-21 tablet by ity o f tablet 00:00: mouth [place] 00 daily. [facility] spironolact 2021-02 Yes [id number] 25mg Take 1 [facility] one 25 mg 0-21 tablet by ity o f tablet 00:00: mouth [place] 00 daily. [facility] spironolact 2021-02 Yes [id number] 25mg Take 1 [facility] one 25 mg 0-21 tablet by ity o f tablet 00:00: mouth [place] 00 daily. [facility] spironolact 2021-02 Yes [id number] 25mg Take 1 [facility] one 25 mg 0-21 tablet by ity o f tablet 00:00: mouth [place] 00 daily. [facility] spironolact 2021-02 Yes [id number] 25mg Take 1 [facility] one 25 mg 0-21 tablet by ity o f tablet 00:00: mouth [place] 00 daily. [facility] spironolact 2021-02 Yes [id number] 25mg Take 1 [facility] one 25 mg 0-21 tablet by ity o f tablet 00:00: mouth [place] 00 daily. [facility] spironolact 2021-02 Yes [id number] 25mg Take 1 [facility] one 25 mg 0-21 tablet by ity o f tablet 00:00: mouth [place] 00 daily. [facility] spironolact 2021-02 Yes [id number] 25mg Take 1 [facility] one 25 mg 0-21 tablet by ity o f tablet 00:00: mouth [place] 00 daily. [facility] spironolact 2021-02 Yes [id number] 25mg Take 1 [facility] one 25 mg 0-21 tablet by ity o f tablet 00:00: mouth [place] 00 daily. [facility] spironolact 2021-02 Yes [id number] 25mg Take 1 [facility] one 25 mg 0-21 tablet by ity o f tablet 00:00: mouth [place] 00 daily. [facility] spironolact 2021-02 Yes [id number] 25mg Take 1 [facility] one 25 mg 0-21 tablet by [facility] o f tablet 00:00: mouth [place] 00 daily. [facility] spironolact 2021-02 Yes [id number] 25mg Take 1 [facility] one 25 mg 0-21 tablet by [facility] o f tablet 00:00: mouth [place] 00 daily. [facility] spironolact 2021-02 Yes [id number] 25mg Take 1 [facility] one 25 mg 0-21 tablet by [facility] o f tablet 00:00: mouth [place] 00 daily. [facility] spironolact 2021-02 Yes [id number] 25mg Take 1 [facility] one 25 mg 0-21 tablet by [facility] o f tablet 00:00: mouth [place] 00 daily. [facility] spironolact 2021-02 Yes [id number] 25mg Take 1 [facility] one 25 mg 0-21 tablet by [facility] o f tablet 00:00: mouth [place] 00 daily. [facility] spironolact 2021-02 Yes [id number] 25mg Take 1 [facility] one 25 mg 0-21 tablet by [facility] o f tablet 00:00: mouth [place] 00 daily. [facility] spironolact 2021-02 Yes [id number] 25mg Take 1 [facility] one 25 mg 0-21 tablet by [facility] o f tablet 00:00: mouth [place] 00 daily. [facility] spironolact 2021-02 Yes [id number] 25mg Take 1 [facility] one 25 mg 0-21 tablet by it[facility] o f tablet 00:00: mouth [place] 00 daily. [facility] spironolact 2021-02 Yes [id number] 25mg Take 1 [facility] one 25 mg 0-21 tablet by [facility] o f tablet 00:00: mouth [place] 00 daily. [facility] spironolact 2021-02 Yes [id number] 25mg Take 1 [facility] one 25 mg 0-21 tablet by [facility] o f tablet 00:00: mouth [place] 00 daily. [facility] spironolact 2021-02 Yes [id number] 25mg Take 1 [facility] one 25 mg 0-21 tablet by it[facility] o f tablet 00:00: mouth [place] 00 daily. [facility] spironolact 2021-02 Yes [id number] 25mg Take 1 [facility] one 25 mg 0-21 tablet by it[facility] o f tablet 00:00: mouth [place] 00 daily. [facility] spironolact 2021-02 Yes [id number] 25mg Take 1 [facility] one 25 mg 0-21 tablet by it[facility] o f tablet 00:00: mouth [place] 00 daily. [facility] spironolact 2021-02- No [id number] 25mg Take 1 [facility] one 25 mg 0-21 04-12 tablet by [facility] of tablet 00:00: 00:00 mouth [place] 00 :00 daily. [facility] spironolact 2021-02- No [id number] 25mg Take 1 [facility] one 25 mg 0-21 04-12 tablet by [facility] of tablet 00:00: 00:00 mouth [place] 00 :00 daily. [facility] losartan 25 2021-02- No [id number] 25mg Take 1 [facility] mg tablet 0-21 -27 tablet by [facility] of 00:00: 00:00 mouth at [place] 00 :00 bedtime. [facility] furosemide 2021-02- No [id number] 20mg Take 1 [facility] 20 mg 0-21 -27 tablet by [facility] of tablet 00:00: 00:00 mouth [place] 00 :00 daily. [facility] losartan 25 2021-02- No [id number] 25mg Take 1 [facility] mg tablet 0-21 -27 tablet by [facility] of 00:00: 00:00 mouth at [place] 00 :00 bedtime. [facility] furosemide 2021-02- No [id number] 20mg Take 1 [facility] 20 mg 0-21 -27 tablet by [facility] of tablet 00:00: 00:00 mouth [place] 00 :00 daily. [facility] losartan 25 2021-02- No [id number] 25mg Take 1 [facility] mg tablet 0-03-11 tablet by it[facility] of 00:00: 00:00 mouth at [place] 00 :00 bedtime. [facility] furosemide 2021-02- No [id number] 20mg Take 1 [facility] 20 mg 0-03-11 tablet by it[facility] of tablet 00:00: 00:00 mouth [place] 00 :00 daily. [facility] losartan 25 2021-02- No [id number] 25mg Take 1 [facility] mg tablet 003-11 tablet by it[facility] of 00:00: 00:00 mouth at [place] 00 :00 bedtime. [facility] furosemide 2021-02- No [id number] 20mg Take 1 [facility] 20 mg 0-03-11 tablet by it[facility] of tablet 00:00: 00:00 mouth [place] 00 :00 daily. [facility] losartan 25 2021-02- No [id number] 25mg Take 1 [facility] mg tablet 003-11 tablet by ity of 00:00: 00:00 mouth at [place] 00 :00 bedtime. [facility] furosemide 2021-02- No [id number] 20mg Take 1 [facility] 20 mg 0-03-11 tablet by it[facility] of tablet 00:00: 00:00 mouth [place] 00 :00 daily. [facility] losartan 25 2021-02- No [id number] 25mg Take 1 [facility] mg tablet 03-11 tablet by it[facility] of 00:00: 00:00 mouth at [place] 00 :00 bedtime. [facility] furosemide 2021-02- No [id number] 20mg Take 1 [facility] 20 mg 0-03-11 tablet by [facility] of tablet 00:00: 00:00 mouth [place] 00 :00 daily. [facility] losartan 25 2021-02- No [id number] 25mg Take 1 [facility] mg tablet 003-11 tablet by it[facility] of 00:00: 00:00 mouth at [place] 00 :00 bedtime. [facility] furosemide 2021-02- No [id number] 20mg Take 1 [facility] 20 mg 0-03-11 tablet by it[facility] of tablet 00:00: 00:00 mouth [place] 00 :00 daily. [facility] benzonatate 2021-02- No [id number] 200mg Take 1 [facility] 200 mg 0-21 12-09 capsule by it[facility] of capsule 00:00: 00:00 mouth 3 [place] 00 :00 (three) Medical times Branch daily as needed for Cough. atorvastati 2021-02- No [id number] 40mg Take 1 [facility] n 40 mg 0-21 12-09 tablet by it[facility] of tablet 00:00: 00:00 mouth at [place] 00 :00 bedtime. Medical Branch benzonatate 2021-02- No [id number] 200mg Take 1 [facility] 200 mg 0-21 12-09 capsule by ity of capsule 00:00: 00:00 mouth 3 [place] 00 :00 (three) Medical times Branch daily as needed for Cough. atorvastati 2021-02- No [id number] 40mg Take 1 [facility] n 40 mg 0-21 12-09 tablet by it[facility] of tablet 00:00: 00:00 mouth at [place] 00 :00 bedtime. Medical Branch losartan 50 0 Yes [id number] 25mg Take 0.5 [facility] mg tablet 9-12 tablets by ity of 00:00: mouth [place] 00 every Medical evening. Branch losartan 50 0 Yes [id number] 25mg Take 0.5 [facility] mg tablet 9-12 tablets by ity of 00:00: mouth [place] 00 every Medical evening. Branch losartan 50 2021-0 Yes [id number] 25mg Take 0.5 [facility] mg tablet 9-12 tablets by ity of 00:00: mouth [place] 00 every Medical evening. Branch losartan 50 0 Yes [id number] 25mg Take 0.5 [facility] mg tablet 9-12 tablets by ity of 00:00: mouth [place] 00 every Medical evening. Branch losartan 50 0 Yes [id number] 25mg Take 0.5 [facility] mg tablet 9-12 tablets by ity of 00:00: mouth [place] 00 every Medical evening. Branch losartan 50 2021-0 Yes [id number] 25mg Take 0.5 [facility] mg tablet 9-12 tablets by ity of 00:00: mouth [place] 00 every Medical evening. Branch losartan 50 2021-0 Yes [id number] 25mg Take 0.5 [facility] mg tablet 9-12 tablets by ity of 00:00: mouth [place] 00 every Medical evening. Branch losartan 50 2021-0 Yes [id number] 25mg Take 0.5 [facility] mg tablet 9-12 tablets by ity of 00:00: mouth [place] 00 every Medical evening. Branch losartan 50 2021-0 Yes [id number] 25mg Take 0.5 [facility] mg tablet 9-12 tablets by ity of 00:00: mouth [place] 00 every Medical evening. Branch losartan 50 2021-0 Yes [id number] 25mg Take 0.5 [facility] mg tablet 9-12 tablets by ity of 00:00: mouth [place] 00 every Medical evening. Branch losartan 50 2021-0 Yes [id number] 25mg Take 0.5 [facility] mg tablet 9-12 tablets by ity of 00:00: mouth [place] 00 every Medical evening. Branch losartan 50 2021-0 Yes [id number] 25mg Take 0.5 [facility] mg tablet 9-12 tablets by ity of 00:00: mouth [place] 00 every Medical evening. Branch losartan 50 2021-0 Yes [id number] 25mg Take 0.5 [facility] mg tablet 9-12 tablets by ity of 00:00: mouth [place] 00 every Medical evening. Branch losartan 50 2021-0 2- No [id number] 25mg Take 0.5 [facility] mg tablet 9-12 10-21 tablets by ity of 00:00: 00:00 mouth [place] 00 :00 every Medical evening. Branch losartan 50 2021-0 2- No [id number] 25mg Take 0.5 [facility] mg tablet 9-12 10-21 tablets by ity of 00:00: 00:00 mouth [place] 00 :00 every Medical evening. Branch metFORMIN 2021-0 Yes 500mg Take 1 [...] daily with Medical breakfast. Branch metFORMIN 2-0 2- No 500mg Take 1 [facility] ers 500 mg 24 7-29 11-09 tablet by ity of hr tablet 00:00: 00:00 mouth [place] 00 :00 daily with Medical breakfast. Branch OXYBUTYNIN 2021-0 2021- No 10mg Take 10 mg [facility] CHLORIDE 7-15 07-15 by mouth. ity o f ORAL 14:50: 00:00 Managed by [place] 14 :00 Dr. Cuenca [facility] Branch losartan 50 2021-0 2- No [id number] 50mg Take 1 [facility] mg tablet 7-15 09-12 tablet by ity of 00:00: 00:00 mouth [place] 00 :00 daily. Medical Branch losartan 50 2021-0 2- No [id number] 50mg Take 1 [facility] mg tablet 3-22 07-15 tablet by ity of 00:00: 00:00 mouth 2 [place] 00 :00 (two) Medical times Branch daily. furosemide 2-0 Yes 40mg Take 1 [facility] [...] tablet by ity of tablet 00:00: mouth [place] 00 daily. Medical Branch furosemide Yes 40mg Take 1 [facility] 40 mg 3-17 tablet by ity of tablet 00:00: mouth [place] 00 daily. Medical Branch furosemide Yes 40mg Take 1 [facility] rs 40 mg 3-17 tablet by ity of tablet 00:00: mouth [place] 00 daily. Medical Branch furosemide 2021- No [...] by ity of tablet 00:00: 00:00 mouth [place] 00 :00 daily. Medical Branch ATORVASTATI 2020-02 Yes [id number] 40mg TAKE 1 [facility] N 40 mg 2-13 TABLET BY ity of tablet 00:00: MOUTH AT [place] [facility] Medical Branch ATORVASTA 2020-02 Yes [id number] 40mg TAKE 1 [facility] N 40 mg 2-13 TABLET BY ity of tablet 00:00: MOUTH AT [place] [facility] Medical Branch ATORVASTA 2020-02 Yes [id number] 40mg TAKE 1 [facility] N 40 mg 2-13 TABLET BY ity of tablet 00:00: MOUTH AT [place] [facility] Medical Branch ATORVASTA 2020-02 Yes [id number] 40mg TAKE 1 [facility] N 40 mg 2-13 TABLET BY ity of tablet 00:00: MOUTH AT [place] [facility] Medical Branch ATORVASTA 2020-02 Yes [id number] 40mg TAKE 1 [facility] N 40 mg 2-13 TABLET BY ity of tablet 00:00: MOUTH AT [place] [facility] Medical Branch ATORVASTA 2020-02 Yes [id number] 40mg TAKE 1 [facility] N 40 mg 2-13 TABLET BY ity of tablet 00:00: MOUTH AT [place] [facility] Medical Branch ATORVASTA 2020-02 Yes [id number] 40mg TAKE 1 [facility] N 40 mg 2-13 TABLET BY ity of tablet 00:00: MOUTH AT [address] 2020-02 Yes [id number] 40mg TAKE 1 [facility] N 40 mg 2-13 TABLET BY ity of tablet 00:00: MOUTH AT [address] 2020-02 Yes [id number] 40mg TAKE 1 [facility] N 40 mg 2-13 TABLET BY ity of tablet 00:00: MOUTH AT [address] 2020-02 Yes [id number] 40mg TAKE 1 [facility] N 40 mg 2-13 TABLET BY ity of tablet 00:00: MOUTH AT [address] 2020-02 Yes [id number] 40mg TAKE 1 [facility] N 40 mg 2-13 TABLET BY ity of tablet 00:00: MOUTH AT [address] 2020-02 Yes [id number] 40mg TAKE 1 [facility] N 40 mg 2-13 TABLET BY ity of tablet 00:00: MOUTH AT [address] 2020-02 Yes [id number] 40mg TAKE 1 [facility] N 40 mg 2-13 TABLET BY ity of tablet 00:00: MOUTH AT [address] 2020-02 Yes [id number] 40mg TAKE 1 [facility] N 40 mg 2-13 TABLET BY ity of tablet 00:00: MOUTH AT [address] 2020-02- No [id number] 40mg TAKE 1 [facility] N 40 mg 2-13 10-21 TABLET BY ity of tablet 00:00: 00:00 MOUTH AT [place] 00 :00 [facility] 2020-02- No [id number] 40mg TAKE 1 [facility] N 40 mg 2-13 10-21 TABLET BY ity of tablet 00:00: 00:00 MOUTH AT [place] 00 :00 [facility] 2020-02- No [id number] 40mg TAKE 1 [facility] N 40 mg 2-13 10-21 TABLET BY ity of tablet 00:00: 00:00 MOUTH AT [place] 00 :00 [facility] azelastine 2020-02 Yes [id number] 1{spray Use 1 [facility] 137 mcg 2-02 } [place] in ity of (0.1 %) 00:00: each [place] nasal spray 00 nostril 2 Med ical (two) Branch times daily. Use in each nostril as directed fluticasone 2020-02 Yes [id number] 2{puff} Inhale 2 [facility] propionate 2-02 Puffs 2 ity of (FLOVENT 00:00: (two) [place] HFA) 44 00 times Medical mcg/actuati daily. Branch on inhaler Rinse mouth after each use. azelastine 2020-02 Yes [id number] 1{spray Use 1 [facility] 137 mcg 2-02 } [place] in ity of (0.1 %) 00:00: each [place] nasal spray 00 nostril 2 Med ical (two) Branch times daily. Use in each nostril as directed fluticasone 2020-02 Yes [id number] 2{puff} Inhale 2 [facility] propionate 2-02 Puffs 2 ity of (FLOVENT 00:00: (two) [place] HFA) 44 00 times Medical mcg/actuati daily. Branch on inhaler Rinse mouth after each use. azelastine 2020-02 Yes [id number] 1{spray Use 1 [facility] 137 mcg 2-02 } [place] in ity of (0.1 %) 00:00: each [place] nasal spray 00 nostril 2 Med ical (two) Branch times daily. Use in each nostril as directed fluticasone 2020-02 Yes [id number] 2{puff} Inhale 2 [facility] propionate 2-02 Puffs 2 ity of (FLOVENT 00:00: (two) [place] HFA) 44 00 times Medical mcg/actuati daily. Branch on inhaler Rinse mouth after each use. azelastine 2020-02 Yes [id number] 1{spray Use 1 [facility] 137 mcg 2-02 } [place] in ity of (0.1 %) 00:00: each [place] nasal spray 00 nostril 2 Med ical (two) Branch times daily. Use in each nostril as directed fluticasone 2020-02 Yes [id number] 2{puff} Inhale 2 [facility] propionate 2-02 Puffs 2 ity of (FLOVENT 00:00: (two) [place] HFA) 44 00 times Medical mcg/actuati daily. Branch on inhaler Rinse mouth after each use. azelastine 2020-02 Yes [id number] 1{spray Use 1 [facility] 137 mcg 2-02 } [place] in ity of (0.1 %) 00:00: each [place] nasal spray 00 nostril 2 Med ical (two) Branch times daily. Use in each nostril as directed fluticasone 2020-02 Yes [id number] 2{puff} Inhale 2 [facility] propionate 2-02 Puffs 2 ity of (FLOVENT 00:00: (two) [place] HFA) 44 00 times Medical mcg/actuati daily. Branch on inhaler Rinse mouth after each use. azelastine 2020-02 Yes [id number] 1{spray Use 1 [facility] 137 mcg 2-02 } [place] in ity of (0.1 %) 00:00: each [place] nasal spray 00 nostril 2 Med ical (two) Branch times daily. Use in each nostril as directed fluticasone 2020-02 Yes [id number] 2{puff} Inhale 2 [facility] propionate 2-02 Puffs 2 ity of (FLOVENT 00:00: (two) [place] HFA) 44 00 times Medical mcg/actuati daily. Branch on inhaler Rinse mouth after each use. azelastine 2020-02 Yes [id number] 1{spray Use 1 [facility] 137 mcg 2-02 } [place] in ity of (0.1 %) 00:00: each [place] nasal spray 00 nostril 2 Med ical (two) Branch times daily. Use in each nostril as directed fluticasone 2020-02 Yes [id number] 2{puff} Inhale 2 [facility] propionate 2-02 Puffs 2 ity of (FLOVENT 00:00: (two) [place] HFA) 44 00 times Medical mcg/actuati daily. Branch on inhaler Rinse mouth after each use. azelastine 2020-02 Yes [id number] 1{spray Use 1 [facility] 137 mcg 2-02 } [place] in ity of (0.1 %) 00:00: each [place] nasal spray 00 nostril 2 Med ical (two) Branch times daily. Use in each nostril as directed fluticasone 2020-02 Yes [id number] 2{puff} Inhale 2 [facility] propionate 2-02 Puffs 2 ity of (FLOVENT 00:00: (two) [place] HFA) 44 00 times Medical mcg/actuati daily. Branch on inhaler Rinse mouth after each use. azelastine 2020-02 Yes [id number] 1{spray Use 1 [facility] 137 mcg 2-02 } [place] in ity of (0.1 %) 00:00: each [place] nasal spray 00 nostril 2 Med ical (two) Branch times daily. Use in each nostril as directed fluticasone 2020-02 Yes [id number] 2{puff} Inhale 2 [facility] propionate 2-02 Puffs 2 ity of (FLOVENT 00:00: (two) [place] HFA) 44 00 times Medical mcg/actuati daily. Branch on inhaler Rinse mouth after each use. azelastine 2020-02 Yes [id number] 1{spray Use 1 [facility] 137 mcg 2-02 } [place] in ity of (0.1 %) 00:00: each [place] nasal spray 00 nostril 2 Med ical (two) Branch times daily. Use in each nostril as directed fluticasone 2020-02 Yes [id number] 2{puff} Inhale 2 [facility] propionate 2-02 Puffs 2 ity of (FLOVENT 00:00: (two) [place] HFA) 44 00 times Medical mcg/actuati daily. Branch on inhaler Rinse mouth after each use. azelastine 2020-02 Yes [id number] 1{spray Use 1 [facility] 137 mcg 2-02 } [place] in ity of (0.1 %) 00:00: each [place] nasal spray 00 nostril 2 Med ical (two) Branch times daily. Use in each nostril as directed fluticasone 2020-02 Yes [id number] 2{puff} Inhale 2 [facility] propionate 2-02 Puffs 2 ity of (FLOVENT 00:00: (two) [place] HFA) 44 00 times Medical mcg/actuati daily. Branch on inhaler Rinse mouth after each use. azelastine 2020-02 Yes [id number] 1{spray Use 1 [facility] 137 mcg 2-02 } [place] in ity of (0.1 %) 00:00: each [place] nasal spray 00 nostril 2 Med ical (two) Branch times daily. Use in each nostril as directed fluticasone 2020-02 Yes [id number] 2{puff} Inhale 2 [facility] propionate 2-02 Puffs 2 ity of (FLOVENT 00:00: (two) [place] HFA) 44 00 times Medical mcg/actuati daily. Branch on inhaler Rinse mouth after each use. azelastine 2020-02 Yes [id number] 1{spray Use 1 [facility] 137 mcg 2-02 } [place] in ity of (0.1 %) 00:00: each [place] nasal spray 00 nostril 2 Med ical (two) Branch times daily. Use in each nostril as directed fluticasone 2020-02 Yes [id number] 2{puff} Inhale 2 [facility] propionate 2-02 Puffs 2 ity of (FLOVENT 00:00: (two) [place] HFA) 44 00 times Medical mcg/actuati daily. Branch on inhaler Rinse mouth after each use. azelastine 2020-02 Yes [id number] 1{spray Use 1 [facility] 137 mcg 2-02 } [place] in ity of (0.1 %) 00:00: each [place] nasal spray 00 nostril 2 Med ical (two) Branch times daily. Use in each nostril as directed fluticasone 2020-02 Yes [id number] 2{puff} Inhale 2 [facility] propionate 2-02 Puffs 2 ity of (FLOVENT 00:00: (two) [place] HFA) 44 00 times Medical mcg/actuati daily. Branch on inhaler Rinse mouth after each use. azelastine 2020-02 Yes [id number] 1{spray Use 1 [facility] 137 mcg 2-02 } [place] in ity of (0.1 %) 00:00: each [place] nasal spray 00 nostril 2 Med ical (two) Branch times daily. Use in each nostril as directed fluticasone 2020-02 Yes [id number] 2{puff} Inhale 2 [facility] propionate 2-02 Puffs 2 ity of (FLOVENT 00:00: (two) [place] HFA) 44 00 times Medical mcg/actuati daily. Branch on inhaler Rinse mouth after each use. azelastine 2020-02 Yes [id number] 1{spray Use 1 [facility] 137 mcg 2-02 } [place] in ity of (0.1 %) 00:00: each [place] nasal spray 00 nostril 2 Med ical (two) Branch times daily. Use in each nostril as directed fluticasone 2020-02 Yes [id number] 2{puff} Inhale 2 [facility] propionate 2-02 Puffs 2 ity of (FLOVENT 00:00: (two) [place] HFA) 44 00 times Medical mcg/actuati daily. Branch on inhaler Rinse mouth after each use. azelastine 2020-02 Yes [id number] 1{spray Use 1 [facility] 137 mcg 2-02 } [place] in ity of (0.1 %) 00:00: each [place] nasal spray 00 nostril 2 Med ical (two) Branch times daily. Use in each nostril as directed fluticasone 2020-02 Yes [id number] 2{puff} Inhale 2 [facility] propionate 2-02 Puffs 2 ity of (FLOVENT 00:00: (two) [place] HFA) 44 00 times Medical mcg/actuati daily. Branch on inhaler Rinse mouth after each use. azelastine 2020-02 Yes [id number] 1{spray Use 1 [facility] 137 mcg 2-02 } [place] in ity of (0.1 %) 00:00: each [place] nasal spray 00 nostril 2 Med ical (two) Branch times daily. Use in each nostril as directed fluticasone 2020-02 Yes [id number] 2{puff} Inhale 2 [facility] propionate 2-02 Puffs 2 ity of (FLOVENT 00:00: (two) [place] HFA) 44 00 times Medical mcg/actuati daily. Branch on inhaler Rinse mouth after each use. azelastine 2020-02 Yes [id number] 1{spray Use 1 [facility] 137 mcg 2-02 } [place] in ity of (0.1 %) 00:00: each [place] nasal spray 00 nostril 2 Med ical (two) Branch times daily. Use in each nostril as directed fluticasone 2020-02 Yes [id number] 2{puff} Inhale 2 [facility] propionate 2-02 Puffs 2 ity of (FLOVENT 00:00: (two) [place] HFA) 44 00 times Medical mcg/actuati daily. Branch on inhaler Rinse mouth after each use. azelastine 2020-02 Yes [id number] 1{spray Use 1 [facility] 137 mcg 2-02 } [place] in ity of (0.1 %) 00:00: each [place] nasal spray 00 nostril 2 Med ical (two) Branch times daily. Use in each nostril as directed fluticasone 2020-02 Yes [id number] 2{puff} Inhale 2 [facility] propionate 2-02 Puffs 2 ity of (FLOVENT 00:00: (two) [place] HFA) 44 00 times Medical mcg/actuati daily. Branch on inhaler Rinse mouth after each use. azelastine 2020-02 Yes [id number] 1{spray Use 1 [facility] 137 mcg 2-02 } [place] in ity of (0.1 %) 00:00: each [place] nasal spray 00 nostril 2 Med ical (two) Branch times daily. Use in each nostril as directed fluticasone 2020-02 Yes [id number] 2{puff} Inhale 2 [facility] propionate 2-02 Puffs 2 ity of (FLOVENT 00:00: (two) [place] HFA) 44 00 times Medical mcg/actuati daily. Branch on inhaler Rinse mouth after each use. azelastine 2020-02 Yes [id number] 1{spray Use 1 [facility] 137 mcg 2-02 } [place] in ity of (0.1 %) 00:00: each [place] nasal spray 00 nostril 2 Med ical (two) Branch times daily. Use in each nostril as directed fluticasone 2020-02 Yes [id number] 2{puff} Inhale 2 [facility] propionate 2-02 Puffs 2 ity of (FLOVENT 00:00: (two) [place] HFA) 44 00 times Medical mcg/actuati daily. Branch on inhaler Rinse mouth after each use. azelastine 2020-02 Yes [id number] 1{spray Use 1 [facility] 137 mcg 2-02 } [place] in ity of (0.1 %) 00:00: each [place] nasal spray 00 nostril 2 Med ical (two) Branch times daily. Use in each nostril as directed fluticasone 2020-02 Yes [id number] 2{puff} Inhale 2 [facility] propionate 2-02 Puffs 2 ity of (FLOVENT 00:00: (two) [place] HFA) 44 00 times Medical mcg/actuati daily. Branch on inhaler Rinse mouth after each use. azelastine 2020-02 Yes [id number] 1{spray Use 1 [facility] 137 mcg 2-02 } [place] in ity of (0.1 %) 00:00: each [place] nasal spray 00 nostril 2 Med ical (two) Branch times daily. Use in each nostril as directed fluticasone 2020-02 Yes [id number] 2{puff} Inhale 2 [facility] propionate 2-02 Puffs 2 ity of (FLOVENT 00:00: (two) [place] HFA) 44 00 times Medical mcg/actuati daily. Branch on inhaler Rinse mouth after each use. azelastine 2020-02 Yes [id number] 1{spray Use 1 [facility] 137 mcg 2-02 } [place] in ity of (0.1 %) 00:00: each [place] nasal spray 00 nostril 2 Med ical (two) Branch times daily. Use in each nostril as directed fluticasone 2020-02 Yes [id number] 2{puff} Inhale 2 [facility] propionate 2-02 Puffs 2 ity of (FLOVENT 00:00: (two) [place] HFA) 44 00 times Medical mcg/actuati daily. Branch on inhaler Rinse mouth after each use. azelastine 2020-02 Yes [id number] 1{spray Use 1 [facility] 137 mcg 2-02 } [place] in ity of (0.1 %) 00:00: each [place] nasal spray 00 nostril 2 Med ical (two) Branch times daily. Use in each nostril as directed fluticasone 2020-02 Yes [id number] 2{puff} Inhale 2 [facility] propionate 2-02 Puffs 2 ity of (FLOVENT 00:00: (two) [place] HFA) 44 00 times Medical mcg/actuati daily. Branch on inhaler Rinse mouth after each use. azelastine 2020-02 Yes [id number] 1{spray Use 1 [facility] 137 mcg 2-02 } [place] in ity of (0.1 %) 00:00: each [place] nasal spray 00 nostril 2 Med ical (two) Branch times daily. Use in each nostril as directed fluticasone 2020-02 Yes [id number] 2{puff} Inhale 2 [facility] propionate 2-02 Puffs 2 ity of (FLOVENT 00:00: (two) [place] HFA) 44 00 times Medical mcg/actuati daily. Branch on inhaler Rinse mouth after each use. azelastine 2020-02 Yes [id number] 1{spray Use 1 [facility] 137 mcg 2-02 } [place] in ity of (0.1 %) 00:00: each [place] nasal spray 00 nostril 2 Med ical (two) Branch times daily. Use in each nostril as directed fluticasone 2020-02 Yes [id number] 2{puff} Inhale 2 [facility] propionate 2-02 Puffs 2 ity of (FLOVENT 00:00: (two) [place] HFA) 44 00 times Medical mcg/actuati daily. Branch on inhaler Rinse mouth after each use. azelastine 2020-02 Yes [id number] 1{spray Use 1 [facility] 137 mcg 2-02 } [place] in ity of (0.1 %) 00:00: each [place] nasal spray 00 nostril 2 Med ical (two) Branch times daily. Use in each nostril as directed fluticasone 2020-02 Yes [id number] 2{puff} Inhale 2 [facility] propionate 2-02 Puffs 2 ity of (FLOVENT 00:00: (two) [place] HFA) 44 00 times Medical mcg/actuati daily. Branch on inhaler Rinse mouth after each use. azelastine 2020-02 Yes [id number] 1{spray Use 1 [facility] 137 mcg 2-02 } [place] in ity of (0.1 %) 00:00: each [place] nasal spray 00 nostril 2 Med ical (two) Branch times daily. Use in each nostril as directed fluticasone 2020-02 Yes [id number] 2{puff} Inhale 2 [facility] propionate 2-02 Puffs 2 ity of (FLOVENT 00:00: (two) [place] HFA) 44 00 times Medical mcg/actuati daily. Branch on inhaler Rinse mouth after each use. azelastine 2020-02 Yes [id number] 1{spray Use 1 [facility] 137 mcg 2-02 } [place] in ity of (0.1 %) 00:00: each [place] nasal spray 00 nostril 2 Med ical (two) Branch times daily. Use in each nostril as directed fluticasone 2020-02 Yes [id number] 2{puff} Inhale 2 [facility] propionate 2-02 Puffs 2 ity of (FLOVENT 00:00: (two) [place] HFA) 44 00 times Medical mcg/actuati daily. Branch on inhaler Rinse mouth after each use. azelastine 2020-02 Yes [id number] 1{spray Use 1 [facility] 137 mcg 2-02 } [place] in ity of (0.1 %) 00:00: each [place] nasal spray 00 nostril 2 Med ical (two) Branch times daily. Use in each nostril as directed fluticasone 2020-02 Yes [id number] 2{puff} Inhale 2 [facility] propionate 2-02 Puffs 2 ity of (FLOVENT 00:00: (two) [place] HFA) 44 00 times Medical mcg/actuati daily. Branch on inhaler Rinse mouth after each use. azelastine 2020-02 Yes [id number] 1{spray Use 1 [facility] 137 mcg 2-02 } [place] in ity of (0.1 %) 00:00: each [place] nasal spray 00 nostril 2 Med ical (two) Branch times daily. Use in each nostril as directed fluticasone 2020-02 Yes [id number] 2{puff} Inhale 2 [facility] propionate 2-02 Puffs 2 ity of (FL[facility]ENT 00:00: (two) [place] [facility]FA) 44 00 times Medical mcg/actuati daily. Branch on inhaler Rinse mouth after each use. azelastine 2020-02 Yes [id number] 1{spray Use 1 [facility] 137 mcg 2-02 } [place] in [facility]y of (0.1 %) 00:00: each [place] nasal spray 00 nostril 2 Med ical (two) Branch times daily. Use in each nostril as directed fluticasone 2020-02 Yes [id number] 2{puff} Inhale 2 [facility] propionate 2-02 Puffs 2 ity of (FL[facility] 00:00: (two) [place] HFA) 44 00 times Medical mcg/actuati daily. Branch on inhaler Rinse mouth after each use. azelastine 2020-02 Yes [id number] 1{spray Use 1 [facility] 137 mcg 2-02 } [place] [facility] of (0.1 %) 00:00: each [place] nasal spray 00 nostril 2 Med ical (two) Branch times daily. Use in each nostril as directed fluticasone 2020-02 Yes [id number] 2{puff} Inhale 2 [facility] propionate 2-02 Puffs 2 ity of ([facility] 00:00: (two) [place] [facility]FA) 44 00 times Medical mcg/actuati daily. Branch on inhaler Rinse mouth after each use. azelastine 2020-02 Yes [id number] 1{spray Use 1 [facility] 137 mcg 2-02 } [place] [facility] of (0.1 %) 00:00: each [place] nasal spray 00 nostril 2 Med ical (two) Branch times daily. Use in each nostril as directed fluticasone 2020-02 Yes [id number] 2{puff} Inhale 2 [facility] propionate 2-02 Puffs 2 ity of ([facility] 00:00: (two) [place] [facility]FA) 44 00 times Medical mcg/actuati daily. Branch on inhaler Rinse mouth after each use. azelastine 2020-02 Yes [id number] 1{spray Use 1 [facility] 137 mcg 2-02 } [place] in [facility] of (0.1 %) 00:00: each [place] nasal spray 00 nostril 2 Med ical (two) Branch times daily. Use in each nostril as directed fluticasone 2020-02 Yes [id number] 2{puff} Inhale 2 [facility] propionate 2-02 Puffs 2 ity of ([facility] 00:00: (two) [place] [facility]FA) 44 00 times Medical mcg/actuati daily. Branch on inhaler Rinse mouth after each use. azelastine 2020-02 Yes [id number] 1{spray Use 1 [facility] 137 mcg 2-02 } [place] in [facility] of (0.1 %) 00:00: each [place] nasal spray 00 nostril 2 Med ical (two) Branch times daily. Use in each nostril as directed fluticasone 2020-02 Yes [id number] 2{puff} Inhale 2 [facility] propionate 2-02 Puffs 2 ity of ([facility] 00:00: (two) [place] [facility]FA) 44 00 times Medical mcg/actuati daily. Branch on inhaler Rinse mouth after each use. azelastine 2020-02 Yes [id number] 1{spray Use 1 [facility] 137 mcg 2-02 } [place] in [facility] of (0.1 %) 00:00: each [place] nasal spray 00 nostril 2 Med ical (two) Branch times daily. Use in each nostril as directed fluticasone 2020-02 Yes [id number] 2{puff} Inhale 2 [facility] propionate 2-02 Puffs 2 ity of ([facility] 00:00: (two) [place] [facility]FA) 44 00 times Medical mcg/actuati daily. Branch on inhaler Rinse mouth after each use. azelastine 2020-02 Yes [id number] 1{spray Use 1 [facility] 137 mcg 2-02 } [place] [facility] of (0.1 %) 00:00: each [place] nasal spray 00 nostril 2 Med ical (two) Branch times daily. Use in each nostril as directed fluticasone 2020-02 Yes [id number] 2{puff} Inhale 2 [facility] propionate 2-02 Puffs 2 ity of ([facility] 00:00: (two) [place] [facility]FA) 44 00 times Medical mcg/actuati daily. Branch on inhaler Rinse mouth after each use. azelastine 2020-02 Yes [id number] 1{spray Use 1 [facility] 137 mcg 2-02 } [place] in [facility] of (0.1 %) 00:00: each [place] nasal spray 00 nostril 2 Med ical (two) Branch times daily. Use in each nostril as directed fluticasone 2020-02 Yes [id number] 2{puff} Inhale 2 [facility] propionate 2-02 Puffs 2 ity of ([facility] 00:00: (two) [place] [facility]FA) 44 00 times Medical mcg/actuati daily. Branch on inhaler Rinse mouth after each use. azelastine 2020-02 Yes [id number] 1{spray Use 1 [facility] 137 mcg 2-02 } [place] in [facility] of (0.1 %) 00:00: each [place] nasal spray 00 nostril 2 Med ical (two) Branch times daily. Use in each nostril as directed fluticasone 2020-02 Yes [id number] 2{puff} Inhale 2 [facility] propionate 2-02 Puffs 2 ity of ([facility] 00:00: (two) [place] [facility]FA) 44 00 times Medical mcg/actuati daily. Branch on inhaler Rinse mouth after each use. azelastine 2020-02 Yes [id number] 1{spray Use 1 [facility] 137 mcg 2-02 } [place] in [facility] of (0.1 %) 00:00: each [place] nasal spray 00 nostril 2 Med ical (two) Branch times daily. Use in each nostril as directed fluticasone 2020-02 Yes [id number] 2{puff} Inhale 2 [facility] propionate 2-02 Puffs 2 ity of ([facility] 00:00: (two) [place] [facility]FA) 44 00 times Medical mcg/actuati daily. Branch on inhaler Rinse mouth after each use. azelastine 2020-02 Yes [id number] 1{spray Use 1 [facility] 137 mcg 2-02 } [place] in [facility] of (0.1 %) 00:00: each [place] nasal spray 00 nostril 2 Med ical (two) Branch times daily. Use in each nostril as directed fluticasone 2020-02 Yes [id number] 2{puff} Inhale 2 [facility] propionate 2-02 Puffs 2 ity of ([facility] 00:00: (two) [place] [facility]FA) 44 00 times Medical mcg/actuati daily. Branch on inhaler Rinse mouth after each use. azelastine 2020-02 Yes [id number] 1{spray Use 1 [facility] 137 mcg 2-02 } [place] in [facility] of (0.1 %) 00:00: each [place] nasal spray 00 nostril 2 Med ical (two) Branch times daily. Use in each nostril as directed fluticasone 2020-02 Yes [id number] 2{puff} Inhale 2 [facility] propionate 2-02 Puffs 2 ity of ([facility] 00:00: (two) [place] [facility]FA) 44 00 times Medical mcg/actuati daily. Branch on inhaler Rinse mouth after each use. azelastine 2020-02 Yes [id number] 1{spray Use 1 [facility] 137 mcg 2-02 } [place] in [facility] of (0.1 %) 00:00: each [place] nasal spray 00 nostril 2 Med ical (two) Branch times daily. Use in each nostril as directed fluticasone 2020-02 Yes [id number] 2{puff} Inhale 2 [facility] propionate 2-02 Puffs 2 ity of ([facility] 00:00: (two) [place] [facility]FA) 44 00 times Medical mcg/actuati daily. Branch on inhaler Rinse mouth after each use. azelastine 2020-02 Yes [id number] 1{spray Use 1 [facility] 137 mcg 2-02 } [place] in [facility] of (0.1 %) 00:00: each [place] nasal spray 00 nostril 2 Med ical (two) Branch times daily. Use in each nostril as directed fluticasone 2020-02 Yes [id number] 2{puff} Inhale 2 [facility] propionate 2-02 Puffs 2 ity of ([facility] 00:00: (two) [place] [facility]FA) 44 00 times Medical mcg/actuati daily. Branch on inhaler Rinse mouth after each use. azelastine 2020-02 Yes [id number] 1{spray Use 1 [facility] 137 mcg 2-02 } [place] in [facility] of (0.1 %) 00:00: each [place] nasal spray 00 nostril 2 Med ical (two) Branch times daily. Use in each nostril as directed fluticasone 2020-02 Yes [id number] 2{puff} Inhale 2 [facility] propionate 2-02 Puffs 2 ity of ([facility] 00:00: (two) [place] [facility]FA) 44 00 times Medical mcg/actuati daily. Branch on inhaler Rinse mouth after each use. azelastine 2020-02 Yes [id number] 1{spray Use 1 [facility] 137 mcg 2-02 } [place] in [facility] of (0.1 %) 00:00: each [place] nasal spray 00 nostril 2 Med ical (two) Branch times daily. Use in each nostril as directed fluticasone 2020-02 Yes [id number] 2{puff} Inhale 2 [facility] propionate 2-02 Puffs 2 ity of ([facility] 00:00: (two) [place] [facility]FA) 44 00 times Medical mcg/actuati daily. Branch on inhaler Rinse mouth after each use. azelastine 2020-02 Yes [id number] 1{spray Use 1 [facility] 137 mcg 2-02 } [place] in [facility] of (0.1 %) 00:00: each [place] nasal spray 00 nostril 2 Med ical (two) Branch times daily. Use in each nostril as directed fluticasone 2020-02 Yes [id number] 2{puff} Inhale 2 [facility] propionate 2-02 Puffs 2 ity of (FL[facility] 00:00: (two) [place] [facility]FA) 44 00 times Medical mcg/actuati daily. Branch on inhaler Rinse mouth after each use. azelastine 2020-02 Yes [id number] 1{spray Use 1 [facility] 137 mcg 2-02 } [place] in [facility] of (0.1 %) 00:00: each [place] nasal spray 00 nostril 2 Med ical (two) Branch times daily. Use in each nostril as directed fluticasone 2020-02 Yes [id number] 2{puff} Inhale 2 [facility] propionate 2-02 Puffs 2 ity of (FL[facility] 00:00: (two) [place] [facility]FA) 44 00 times Medical mcg/actuati daily. Branch on inhaler Rinse mouth after each use. azelastine 2020-02 Yes [id number] 1{spray Use 1 [facility] 137 mcg 2-02 } [place] in [facility] of (0.1 %) 00:00: each [place] nasal spray 00 nostril 2 Med ical (two) Branch times daily. Use in each nostril as directed fluticasone 2020-02 Yes [id number] 2{puff} Inhale 2 [facility] propionate 2-02 Puffs 2 ity of ([facility] 00:00: (two) [place] [facility]FA) 44 00 times Medical mcg/actuati daily. Branch on inhaler Rinse mouth after each use. azelastine 2020-02 Yes [id number] 1{spray Use 1 [facility] 137 mcg 2-02 } [place] in [facility] of (0.1 %) 00:00: each [place] nasal spray 00 nostril 2 Med ical (two) Branch times daily. Use in each nostril as directed fluticasone 2020-02 Yes [id number] 2{puff} Inhale 2 [facility] propionate 2-02 Puffs 2 ity of ([facility] 00:00: (two) [place] [facility]FA) 44 00 times Medical mcg/actuati daily. Branch on inhaler Rinse mouth after each use. azelastine 2020-02 Yes [id number] 1{spray Use 1 [facility] 137 mcg 2-02 } [place] in [facility] of (0.1 %) 00:00: each [place] nasal spray 00 nostril 2 Med ical (two) Branch times daily. Use in each nostril as directed fluticasone 2020-02 Yes [id number] 2{puff} Inhale 2 [facility] propionate 2-02 Puffs 2 ity of (FL[facility] 00:00: (two) [place] [facility]FA) 44 00 times Medical mcg/actuati daily. Branch on inhaler Rinse mouth after each use. azelastine 2020-02 Yes [id number] 1{spray Use 1 [facility] 137 mcg 2-02 } [place] in [facility] of (0.1 %) 00:00: each [place] nasal spray 00 nostril 2 Med ical (two) Branch times daily. Use in each nostril as directed fluticasone 2020-02 Yes [id number] 2{puff} Inhale 2 [facility] propionate 2-02 Puffs 2 ity of ([facility] 00:00: (two) [place] [facility]FA) 44 00 times Medical mcg/actuati daily. Branch on inhaler Rinse mouth after each use. azelastine 2020-02 Yes [id number] 1{spray Use 1 [facility] 137 mcg 2-02 } [place] in [facility] of (0.1 %) 00:00: each [place] nasal spray 00 nostril 2 Med ical (two) Branch times daily. Use in each nostril as directed fluticasone 2020-02 Yes [id number] 2{puff} Inhale 2 [facility] propionate 2-02 Puffs 2 ity of ([facility] 00:00: (two) [place] [facility]FA) 44 00 times Medical mcg/actuati daily. Branch on inhaler Rinse mouth after each use. azelastine 2020-02 Yes [id number] 1{spray Use 1 [facility] 137 mcg 2-02 } [place] in [facility] of (0.1 %) 00:00: each [place] nasal spray 00 nostril 2 Med ical (two) Branch times daily. Use in each nostril as directed fluticasone 2020-02 Yes [id number] 2{puff} Inhale 2 [facility] propionate 2-02 Puffs 2 ity of (FL[facility] 00:00: (two) [place] [facility]FA) 44 00 times Medical mcg/actuati daily. Branch on inhaler Rinse mouth after each use. azelastine 2020-02 Yes [id number] 1{spray Use 1 [facility] 137 mcg 2-02 } [place] in [facility] of (0.1 %) 00:00: each [place] nasal spray 00 nostril 2 Med ical (two) Branch times daily. Use in each nostril as directed fluticasone 2020-02 Yes [id number] 2{puff} Inhale 2 [facility] propionate 2-02 Puffs 2 ity of ([facility] 00:00: (two) [place] [facility]FA) 44 00 times Medical mcg/actuati daily. Branch on inhaler Rinse mouth after each use. azelastine 2020-02 Yes [id number] 1{spray Use 1 [facility] 137 mcg 2-02 } [place] in [facility] of (0.1 %) 00:00: each [place] nasal spray 00 nostril 2 Med ical (two) Branch times daily. Use in each nostril as directed fluticasone 2020-02 Yes [id number] 2{puff} Inhale 2 [facility] propionate 2-02 Puffs 2 ity of (FL[facility] 00:00: (two) [place] [facility]FA) 44 00 times Medical mcg/actuati daily. Branch on inhaler Rinse mouth after each use. azelastine 2020-02 Yes [id number] 1{spray Use 1 [facility] 137 mcg 2-02 } [place] in [facility] of (0.1 %) 00:00: each [place] nasal spray 00 nostril 2 Med ical (two) Branch times daily. Use in each nostril as directed fluticasone 2020-02 Yes [id number] 2{puff} Inhale 2 [facility] propionate 2-02 Puffs 2 ity of ([facility] 00:00: (two) [place] [facility]FA) 44 00 times Medical mcg/actuati daily. Branch on inhaler Rinse mouth after each use. azelastine 2020-02 Yes [id number] 1{spray Use 1 [facility] 137 mcg 2-02 } [place] in [facility] of (0.1 %) 00:00: each [place] nasal spray 00 nostril 2 Med ical (two) Branch times daily. Use in each nostril as directed fluticasone 2020-02 Yes [id number] 2{puff} Inhale 2 [facility] propionate 2-02 Puffs 2 ity of ([facility] 00:00: (two) [place] [facility]FA) 44 00 times Medical mcg/actuati daily. Branch on inhaler Rinse mouth after each use. azelastine 2020-02 Yes [id number] 1{spray Use 1 [facility] 137 mcg 2-02 } [place] in [facility] of (0.1 %) 00:00: each [place] nasal spray 00 nostril 2 Med ical (two) Branch times daily. Use in each nostril as directed fluticasone 2020-02 Yes [id number] 2{puff} Inhale 2 [facility] propionate 2-02 Puffs 2 ity of ([facility] 00:00: (two) [place] [facility]FA) 44 00 times Medical mcg/actuati daily. Branch on inhaler Rinse mouth after each use. azelastine 2020-02 Yes [id number] 1{spray Use 1 [facility] 137 mcg 2-02 } [place] in [facility] of (0.1 %) 00:00: each [place] nasal spray 00 nostril 2 Med ical (two) Branch times daily. Use in each nostril as directed fluticasone 2020-02 Yes [id number] 2{puff} Inhale 2 [facility] propionate 2-02 Puffs 2 ity of (FL[facility] 00:00: (two) [place] [facility]FA) 44 00 times Medical mcg/actuati daily. Branch on inhaler Rinse mouth after each use. azelastine 2020-02 Yes [id number] 1{spray Use 1 [facility] 137 mcg 2-02 } [place] in [facility] of (0.1 %) 00:00: each [place] nasal spray 00 nostril 2 Med ical (two) Branch times daily. Use in each nostril as directed fluticasone 2020-02 Yes [id number] 2{puff} Inhale 2 [facility] propionate 2-02 Puffs 2 ity of (FL[facility] 00:00: (two) [place] [facility]FA) 44 00 times Medical mcg/actuati daily. Branch on inhaler Rinse mouth after each use. azelastine 2020-02 Yes [id number] 1{spray Use 1 [facility] 137 mcg 2-02 } [place] in [facility] of (0.1 %) 00:00: each [place] nasal spray 00 nostril 2 Med ical (two) Branch times daily. Use in each nostril as directed fluticasone 2020-02 Yes [id number] 2{puff} Inhale 2 [facility] propionate 2-02 Puffs 2 ity of (FL[facility] 00:00: (two) [place] [facility]FA) 44 00 times Medical mcg/actuati daily. Branch on inhaler Rinse mouth after each use. azelastine 2020-02 Yes [id number] 1{spray Use 1 [facility] 137 mcg 2-02 } [place] in [facility] of (0.1 %) 00:00: each [place] nasal spray 00 nostril 2 Med ical (two) Branch times daily. Use in each nostril as directed fluticasone 2020-02 Yes [id number] 2{puff} Inhale 2 [facility] propionate 2-02 Puffs 2 ity of (FLOVENT 00:00: (two) [place] [facility]FA) 44 00 times Medical mcg/actuati daily. Branch on inhaler Rinse mouth after each use. azelastine 2020-02 Yes [id number] 1{spray Use 1 [facility] 137 mcg 2-02 } [place] in [facility] of (0.1 %) 00:00: each [place] nasal spray 00 nostril 2 Med ical (two) Branch times daily. Use in each nostril as directed fluticasone 2020-02 Yes [id number] 2{puff} Inhale 2 [facility] propionate 2-02 Puffs 2 ity of (FLOV[facility] 00:00: (two) [place] [facility]FA) 44 00 times Medical mcg/actuati daily. Branch on inhaler Rinse mouth after each use. azelastine 2020-02 Yes [id number] 1{spray Use 1 [facility] 137 mcg 2-02 } [place] in [facility] of (0.1 %) 00:00: each [place] nasal spray 00 nostril 2 Med ical (two) Branch times daily. Use in each nostril as directed fluticasone 2020-02 Yes [id number] 2{puff} Inhale 2 [facility] propionate 2-02 Puffs 2 ity of (FLOV[facility] 00:00: (two) [place] [facility]FA) 44 00 times Medical mcg/actuati daily. Branch on inhaler Rinse mouth after each use. azelastine 2020-02 Yes [id number] 1{spray Use 1 [facility] 137 mcg 2-02 } [place] in [facility] of (0.1 %) 00:00: each [place] nasal spray 00 nostril 2 Med ical (two) Branch times daily. Use in each nostril as directed fluticasone 2020-02 Yes [id number] 2{puff} Inhale 2 [facility] propionate 2-02 Puffs 2 ity of (FLOV[facility] 00:00: (two) [place] [facility]FA) 44 00 times Medical mcg/actuati daily. Branch on inhaler Rinse mouth after each use. azelastine 2020-02 Yes [id number] 1{spray Use 1 [facility] 137 mcg 2-02 } [place] in [facility] of (0.1 %) 00:00: each [place] nasal spray 00 nostril 2 Med ical (two) Branch times daily. Use in each nostril as directed fluticasone 2020-02 Yes [id number] 2{puff} Inhale 2 [facility] propionate 2-02 Puffs 2 ity of (FLOVENT 00:00: (two) [place] [facility]FA) 44 00 times Medical mcg/actuati daily. Branch on inhaler Rinse mouth after each use. azelastine 2020-02 Yes [id number] 1{spray Use 1 [facility] 137 mcg 2-02 } [place] in [facility] of (0.1 %) 00:00: each [place] nasal spray 00 nostril 2 Med ical (two) Branch times daily. Use in each nostril as directed fluticasone 2020-02 Yes [id number] 2{puff} Inhale 2 [facility] propionate 2-02 Puffs 2 ity of (FLOVENT 00:00: (two) [place] [facility]FA) 44 00 times Medical mcg/actuati daily. Branch on inhaler Rinse mouth after each use. azelastine 2020-02 Yes [id number] 1{spray Use 1 [facility] 137 mcg 2-02 } [place] in [facility] of (0.1 %) 00:00: each [place] nasal spray 00 nostril 2 Med ical (two) Branch times daily. Use in each nostril as directed fluticasone 2020-02 Yes [id number] 2{puff} Inhale 2 [facility] propionate 2-02 Puffs 2 ity of (FLOV[facility] 00:00: (two) [place] [facility]FA) 44 00 times Medical mcg/actuati daily. Branch on inhaler Rinse mouth after each use. azelastine 2020-02 Yes [id number] 1{spray Use 1 [facility] 137 mcg 2-02 } [place] in [facility] of (0.1 %) 00:00: each [place] nasal spray 00 nostril 2 Med ical (two) Branch times daily. Use in each nostril as directed fluticasone 2020-02 Yes [id number] 2{puff} Inhale 2 [facility] propionate 2-02 Puffs 2 ity of (FLOVENT 00:00: (two) [place] [facility]FA) 44 00 times Medical mcg/actuati daily. Branch on inhaler Rinse mouth after each use. azelastine 2020-02 Yes [id number] 1{spray Use 1 [facility] 137 mcg 2-02 } [place] in [facility] of (0.1 %) 00:00: each [place] nasal spray 00 nostril 2 Med ical (two) Branch times daily. Use in each nostril as directed fluticasone 2020-02 Yes [id number] 2{puff} Inhale 2 [facility] propionate 2-02 Puffs 2 ity of (FLOV[facility] 00:00: (two) [place] [facility]FA) 44 00 times Medical mcg/actuati daily. Branch on inhaler Rinse mouth after each use. azelastine 2020-02 Yes [id number] 1{spray Use 1 [facility] 137 mcg 2-02 } [place] in [facility] of (0.1 %) 00:00: each [place] nasal spray 00 nostril 2 Med ical (two) Branch times daily. Use in each nostril as directed fluticasone 2020-02 Yes [id number] 2{puff} Inhale 2 [facility] propionate 2-02 Puffs 2 ity of (FLOV[facility] 00:00: (two) [place] [facility]FA) 44 00 times Medical mcg/actuati daily. Branch on inhaler Rinse mouth after each use. azelastine 2020-02 Yes [id number] 1{spray Use 1 [facility] 137 mcg 2-02 } [place] in [facility] of (0.1 %) 00:00: each [place] nasal spray 00 nostril 2 Med ical (two) Branch times daily. Use in each nostril as directed fluticasone 2020-02 Yes [id number] 2{puff} Inhale 2 [facility] propionate 2-02 Puffs 2 ity of (FLOV[facility] 00:00: (two) [place] [facility]FA) 44 00 times Medical mcg/actuati daily. Branch on inhaler Rinse mouth after each use. azelastine 2020-02 Yes [id number] 1{spray Use 1 [facility] 137 mcg 2-02 } [place] in [facility] of (0.1 %) 00:00: each [place] nasal spray 00 nostril 2 Med ical (two) Branch times daily. Use in each nostril as directed fluticasone 2020-02 Yes [id number] 2{puff} Inhale 2 [facility] propionate 2-02 Puffs 2 ity of (FLOV[facility] 00:00: (two) [place] [facility]) 44 00 times Medical mcg/actuati daily. Branch on inhaler Rinse mouth after each use. azelastine 2020-02 Yes [id number] 1{spray Use 1 [facility] 137 mcg 2-02 } [place] in [facility] of (0.1 %) 00:00: each [place] nasal spray 00 nostril 2 Med ical (two) Branch times daily. Use in each nostril as directed fluticasone 2020-02 Yes [id number] 2{puff} Inhale 2 [facility] propionate 2-02 Puffs 2 ity of (FL[facility] 00:00: (two) [place] [facility]FA) 44 00 times Medical mcg/actuati daily. Branch on inhaler Rinse mouth after each use. azelastine 2020-02 Yes [id number] 1{spray Use 1 [facility] 137 mcg 2-02 } [place] in [facility] of (0.1 %) 00:00: each [place] nasal spray 00 nostril 2 Med ical (two) Branch times daily. Use in each nostril as directed fluticasone 2020-02 Yes [id number] 2{puff} Inhale 2 [facility] propionate 2-02 Puffs 2 ity of (FL[facility] 00:00: (two) [place] [facility]FA) 44 00 times Medical mcg/actuati daily. Branch on inhaler Rinse mouth after each use. azelastine 2020-02 Yes [id number] 1{spray Use 1 [facility] 137 mcg 2-02 } [place] in [facility] of (0.1 %) 00:00: each [place] nasal spray 00 nostril 2 Med ical (two) Branch times daily. Use in each nostril as directed fluticasone 2020-02 Yes [id number] 2{puff} Inhale 2 [facility] propionate 2-02 Puffs 2 ity of ([facility] 00:00: (two) [place] [facility]FA) 44 00 times Medical mcg/actuati daily. Branch on inhaler Rinse mouth after each use. azelastine 2020-02 Yes [id number] 1{spray Use 1 [facility] 137 mcg 2-02 } [place] in [facility] of (0.1 %) 00:00: each [place] nasal spray 00 nostril 2 Med ical (two) Branch times daily. Use in each nostril as directed fluticasone 2020-02 Yes [id number] 2{puff} Inhale 2 [facility] propionate 2-02 Puffs 2 ity of (FL[facility] 00:00: (two) [place] [facility]FA) 44 00 times Medical mcg/actuati daily. Branch on inhaler Rinse mouth after each use. azelastine 2020-02 Yes [id number] 1{spray Use 1 [facility] 137 mcg 2-02 } [place] in [facility] of (0.1 %) 00:00: each [place] nasal spray 00 nostril 2 Med ical (two) Branch times daily. Use in each nostril as directed fluticasone 2020-02 Yes [id number] 2{puff} Inhale 2 [facility] propionate 2-02 Puffs 2 ity of (FL[facility] 00:00: (two) [place] [facility]FA) 44 00 times Medical mcg/actuati daily. Branch on inhaler Rinse mouth after each use. azelastine 2020-02 Yes [id number] 1{spray Use 1 [facility] 137 mcg 2-02 } [place] in [facility] of (0.1 %) 00:00: each [place] nasal spray 00 nostril 2 Med ical (two) Branch times daily. Use in each nostril as directed fluticasone 2020-02 Yes [id number] 2{puff} Inhale 2 [facility] propionate 2-02 Puffs 2 ity of (FL[facility]ENT 00:00: (two) [place] [facility]FA) 44 00 times Medical mcg/actuati daily. Branch on inhaler Rinse mouth after each use. azelastine 2020-02 Yes [id number] 1{spray Use 1 [facility] 137 mcg 2-02 } [place] in [facility] of (0.1 %) 00:00: each [place] nasal spray 00 nostril 2 Med ical (two) Branch times daily. Use in each nostril as directed fluticasone 2020-02 Yes [id number] 2{puff} Inhale 2 [facility] propionate 2-02 Puffs 2 ity of (FLOVENT 00:00: (two) [place] [facility]FA) 44 00 times Medical mcg/actuati daily. Branch on inhaler Rinse mouth after each use. azelastine 2020-02 Yes [id number] 1{spray Use 1 [facility] 137 mcg 2-02 } [place] in [facility] of (0.1 %) 00:00: each [place] nasal spray 00 nostril 2 Med ical (two) Branch times daily. Use in each nostril as directed fluticasone 2020-02 Yes [id number] 2{puff} Inhale 2 [facility] propionate 2-02 Puffs 2 ity of (FLOVENT 00:00: (two) [place] [facility]FA) 44 00 times Medical mcg/actuati daily. Branch on inhaler Rinse mouth after each use. azelastine 2020-02 Yes [id number] 1{spray Use 1 [facility] 137 mcg 2-02 } [place] in [facility]y of (0.1 %) 00:00: each [place] nasal spray 00 nostril 2 Med ical (two) Branch times daily. Use in each nostril as directed fluticasone 2020-02 Yes [id number] 2{puff} Inhale 2 [facility] propionate 2-02 Puffs 2 ity of (FLOVENT 00:00: (two) [place] HFA) 44 00 times Medical mcg/actuati daily. Branch on inhaler Rinse mouth after each use. azelastine 2020-02 Yes [id number] 1{spray Use 1 [facility] 137 mcg 2-02 } [place] in [facility]y of (0.1 %) 00:00: each [place] nasal spray 00 nostril 2 Med ical (two) Branch times daily. Use in each nostril as directed fluticasone 2020-02 Yes [id number] 2{puff} Inhale 2 [facility] propionate 2-02 Puffs 2 ity of (FLOVENT 00:00: (two) [place] HFA) 44 00 times Medical mcg/actuati daily. Branch on inhaler Rinse mouth after each use. azelastine 2020-02 Yes [id number] 1{spray Use 1 [facility] 137 mcg 2-02 } [place] in [facility] of (0.1 %) 00:00: each [place] nasal spray 00 nostril 2 Med ical (two) Branch times daily. Use in each nostril as directed fluticasone 2020-02 Yes [id number] 2{puff} Inhale 2 [facility] propionate 2-02 Puffs 2 ity of (FLOVENT 00:00: (two) [place] HFA) 44 00 times Medical mcg/actuati daily. Branch on inhaler Rinse mouth after each use. azelastine 2020-02 Yes [id number] 1{spray Use 1 [facility] 137 mcg 2-02 } [place] in [facility]y of (0.1 %) 00:00: each [place] nasal spray 00 nostril 2 Med ical (two) Branch times daily. Use in each nostril as directed fluticasone 2020-02 Yes [id number] 2{puff} Inhale 2 [facility] propionate 2-02 Puffs 2 ity of (FLOVENT 00:00: (two) [place] HFA) 44 00 times Medical mcg/actuati daily. Branch on inhaler Rinse mouth after each use. azelastine 2020-02 Yes [id number] 1{spray Use 1 [facility] 137 mcg 2-02 } [place] in [facility]y of (0.1 %) 00:00: each [place] nasal spray 00 nostril 2 Med ical (two) Branch times daily. Use in each nostril as directed fluticasone 2020-02 Yes [id number] 2{puff} Inhale 2 [facility] propionate 2-02 Puffs 2 ity of (FLOVENT 00:00: (two) [place] HFA) 44 00 times Medical mcg/actuati daily. Branch on inhaler Rinse mouth after each use. azelastine 2020-02 Yes [id number] 1{spray Use 1 [facility] 137 mcg 2-02 } [place] in [facility] of (0.1 %) 00:00: each [place] nasal spray 00 nostril 2 Med ical (two) Branch times daily. Use in each nostril as directed fluticasone 2020-02 Yes [id number] 2{puff} Inhale 2 [facility] propionate 2-02 Puffs 2 ity of (FLOVENT 00:00: (two) [place] HFA) 44 00 times Medical mcg/actuati daily. Branch on inhaler Rinse mouth after each use. azelastine 2020-02 Yes [id number] 1{spray Use 1 [facility] 137 mcg 2-02 } [place] in ity of (0.1 %) 00:00: each [place] nasal spray 00 nostril 2 Med ical (two) Branch times daily. Use in each nostril as directed fluticasone 2020-02 Yes [id number] 2{puff} Inhale 2 [facility] propionate 2-02 Puffs 2 ity of (FLOVENT 00:00: (two) [place] HFA) 44 00 times Medical mcg/actuati daily. Branch on inhaler Rinse mouth after each use. azelastine 2020-02 Yes [id number] 1{spray Use 1 [facility] 137 mcg 2-02 } [place] in ity of (0.1 %) 00:00: each [place] nasal spray 00 nostril 2 Med ical (two) Branch times daily. Use in each nostril as directed fluticasone 2020-02 Yes [id number] 2{puff} Inhale 2 [facility] propionate 2-02 Puffs 2 ity of (FLOVENT 00:00: (two) [place] HFA) 44 00 times Medical mcg/actuati daily. Branch on inhaler Rinse mouth after each use. azelastine 2020-02 Yes [id number] 1{spray Use 1 [facility] 137 mcg 2-02 } [place] in ity of (0.1 %) 00:00: each [place] nasal spray 00 nostril 2 Med ical (two) Branch times daily. Use in each nostril as directed fluticasone 2020-02 Yes [id number] 2{puff} Inhale 2 [facility] propionate 2-02 Puffs 2 ity of (FLOVENT 00:00: (two) [place] HFA) 44 00 times Medical mcg/actuati daily. Branch on inhaler Rinse mouth after each use. azelastine 2020-02 Yes [id number] 1{spray Use 1 [facility] 137 mcg 2-02 } [place] in ity of (0.1 %) 00:00: each [place] nasal spray 00 nostril 2 Med ical (two) Branch times daily. Use in each nostril as directed fluticasone 2020-02 Yes [id number] 2{puff} Inhale 2 [facility] propionate 2-02 Puffs 2 ity of (FLOVENT 00:00: (two) [place] HFA) 44 00 times Medical mcg/actuati daily. Branch on inhaler Rinse mouth after each use. azelastine 2020-02 Yes [id number] 1{spray Use 1 [facility] 137 mcg 2-02 } [place] in ity of (0.1 %) 00:00: each [place] nasal spray 00 nostril 2 Med ical (two) Branch times daily. Use in each nostril as directed fluticasone 2020-02 Yes [id number] 2{puff} Inhale 2 [facility] propionate 2-02 Puffs 2 ity of (FLOVENT 00:00: (two) [place] HFA) 44 00 times Medical mcg/actuati daily. Branch on inhaler Rinse mouth after each use. azelastine 2020-02 Yes [id number] 1{spray Use 1 [facility] 137 mcg 2-02 } [place] in ity of (0.1 %) 00:00: each [place] nasal spray 00 nostril 2 Med ical (two) Branch times daily. Use in each nostril as directed fluticasone 2020-02 Yes [id number] 2{puff} Inhale 2 [facility] propionate 2-02 Puffs 2 ity of (FLOVENT 00:00: (two) [place] HFA) 44 00 times Medical mcg/actuati daily. Branch on inhaler Rinse mouth after each use. azelastine 2020-02 Yes [id number] 1{spray Use 1 [facility] 137 mcg 2-02 } [place] in ity of (0.1 %) 00:00: each [place] nasal spray 00 nostril 2 Med ical (two) Branch times daily. Use in each nostril as directed fluticasone 2020-02 Yes [id number] 2{puff} Inhale 2 [facility] propionate 2-02 Puffs 2 ity of (FLOVENT 00:00: (two) [place] HFA) 44 00 times Medical mcg/actuati daily. Branch on inhaler Rinse mouth after each use. azelastine 2020-02 Yes [id number] 1{spray Use 1 [facility] 137 mcg 2-02 } [place] in ity of (0.1 %) 00:00: each [place] nasal spray 00 nostril 2 Med ical (two) Branch times daily. Use in each nostril as directed fluticasone 2020-02 Yes [id number] 2{puff} Inhale 2 [facility] propionate 2-02 Puffs 2 ity of (FLOVENT 00:00: (two) [place] HFA) 44 00 times Medical mcg/actuati daily. Branch on inhaler Rinse mouth after each use. azelastine 2020-02 Yes [id number] 1{spray Use 1 [facility] 137 mcg 2-02 } [place] in ity of (0.1 %) 00:00: each [place] nasal spray 00 nostril 2 Med ical (two) Branch times daily. Use in each nostril as directed fluticasone 2020-02 Yes [id number] 2{puff} Inhale 2 [facility] propionate 2-02 Puffs 2 ity of (FLOVENT 00:00: (two) [place] HFA) 44 00 times Medical mcg/actuati daily. Branch on inhaler Rinse mouth after each use. azelastine 2020-02 Yes [id number] 1{spray Use 1 [facility] 137 mcg 2-02 } [place] in ity of (0.1 %) 00:00: each [place] nasal spray 00 nostril 2 Med ical (two) Branch times daily. Use in each nostril as directed fluticasone 2020-02 Yes [id number] 2{puff} Inhale 2 [facility] propionate 2-02 Puffs 2 ity of (FLOVENT 00:00: (two) [place] HFA) 44 00 times Medical mcg/actuati daily. Branch on inhaler Rinse mouth after each use. azelastine 2020-02 Yes [id number] 1{spray Use 1 [facility] 137 mcg 2-02 } [place] in ity of (0.1 %) 00:00: each [place] nasal spray 00 nostril 2 Med ical (two) Branch times daily. Use in each nostril as directed fluticasone 2020-02 Yes [id number] 2{puff} Inhale 2 [facility] propionate 2-02 Puffs 2 ity of (FLOVENT 00:00: (two) [place] HFA) 44 00 times Medical mcg/actuati daily. Branch on inhaler Rinse mouth after each use. azelastine 2020-02 Yes [id number] 1{spray Use 1 [facility] 137 mcg 2-02 } [place] in ity of (0.1 %) 00:00: each [place] nasal spray 00 nostril 2 Med ical (two) Branch times daily. Use in each nostril as directed fluticasone 2020-02 Yes [id number] 2{puff} Inhale 2 [facility] propionate 2-02 Puffs 2 ity of (FLOVENT 00:00: (two) [place] HFA) 44 00 times Medical mcg/actuati daily. Branch on inhaler Rinse mouth after each use. azelastine 2020-02 Yes [id number] 1{spray Use 1 [facility] 137 mcg 2-02 } [place] in ity of (0.1 %) 00:00: each [place] nasal spray 00 nostril 2 Med ical (two) Branch times daily. Use in each nostril as directed fluticasone 2020-02 Yes [id number] 2{puff} Inhale 2 [facility] propionate 2-02 Puffs 2 ity of (FLOVENT 00:00: (two) [place] HFA) 44 00 times Medical mcg/actuati daily. Branch on inhaler Rinse mouth after each use. azelastine 2020-02 Yes [id number] 1{spray Use 1 [facility] 137 mcg 2-02 } [place] in ity of (0.1 %) 00:00: each [place] nasal spray 00 nostril 2 Med ical (two) Branch times daily. Use in each nostril as directed fluticasone 2020-02 Yes [id number] 2{puff} Inhale 2 [facility] propionate 2-02 Puffs 2 ity of (FLOVENT 00:00: (two) [place] HFA) 44 00 times Medical mcg/actuati daily. Branch on inhaler Rinse mouth after each use. azelastine 2020-02 Yes [id number] 1{spray Use 1 [facility] 137 mcg 2-02 } [place] in ity of (0.1 %) 00:00: each [place] nasal spray 00 nostril 2 Med ical (two) Branch times daily. Use in each nostril as directed fluticasone 2020-02 Yes [id number] 2{puff} Inhale 2 [facility] propionate 2-02 Puffs 2 ity of (FLOVENT 00:00: (two) [place] HFA) 44 00 times Medical mcg/actuati daily. Branch on inhaler Rinse mouth after each use. azelastine 2020-02 Yes [id number] 1{spray Use 1 [facility] 137 mcg 2-02 } [place] in ity of (0.1 %) 00:00: each [place] nasal spray 00 nostril 2 Med ical (two) Branch times daily. Use in each nostril as directed fluticasone 2020-02 Yes [id number] 2{puff} Inhale 2 [facility] propionate 2-02 Puffs 2 ity of (FLOVENT 00:00: (two) [place] HFA) 44 00 times Medical mcg/actuati daily. Branch on inhaler Rinse mouth after each use. azelastine 2020-02 Yes [id number] 1{spray Use 1 [facility] 137 mcg 2-02 } [place] in ity of (0.1 %) 00:00: each [place] nasal spray 00 nostril 2 Med ical (two) Branch times daily. Use in each nostril as directed fluticasone 2020-02 Yes [id number] 2{puff} Inhale 2 [facility] propionate 2-02 Puffs 2 ity of (FLOVENT 00:00: (two) [place] HFA) 44 00 times Medical mcg/actuati daily. Branch on inhaler Rinse mouth after each use. azelastine 2020-02 Yes [id number] 1{spray Use 1 [facility] 137 mcg 2-02 } [place] in ity of (0.1 %) 00:00: each [place] nasal spray 00 nostril 2 Med ical (two) Branch times daily. Use in each nostril as directed fluticasone 2020-02 Yes [id number] 2{puff} Inhale 2 [facility] propionate 2-02 Puffs 2 ity of (FLOVENT 00:00: (two) [place] HFA) 44 00 times Medical mcg/actuati daily. Branch on inhaler Rinse mouth after each use. azelastine 2020-02 Yes [id number] 1{spray Use 1 [facility] 137 mcg 2-02 } [place] in ity of (0.1 %) 00:00: each [place] nasal spray 00 nostril 2 Med ical (two) Branch times daily. Use in each nostril as directed fluticasone 2020-02 Yes [id number] 2{puff} Inhale 2 [facility] propionate 2-02 Puffs 2 ity of (FLOVENT 00:00: (two) [place] HFA) 44 00 times Medical mcg/actuati daily. Branch on inhaler Rinse mouth after each use. azelastine 2020-02 Yes [id number] 1{spray Use 1 [facility] 137 mcg 2-02 } [place] in ity of (0.1 %) 00:00: each [place] nasal spray 00 nostril 2 Med ical (two) Branch times daily. Use in each nostril as directed fluticasone 2020-02 Yes [id number] 2{puff} Inhale 2 [facility] propionate 2-02 Puffs 2 ity of (FLOVENT 00:00: (two) [place] HFA) 44 00 times Medical mcg/actuati daily. Branch on inhaler Rinse mouth after each use. azelastine 2020-02 Yes [id number] 1{spray Use 1 [facility] 137 mcg 2-02 } [place] in ity of (0.1 %) 00:00: each [place] nasal spray 00 nostril 2 Med ical (two) Branch times daily. Use in each nostril as directed fluticasone 2020-02 Yes [id number] 2{puff} Inhale 2 [facility] propionate 2-02 Puffs 2 ity of (FLOVENT 00:00: (two) [place] HFA) 44 00 times Medical mcg/actuati daily. Branch on inhaler Rinse mouth after each use. azelastine 2020-02 Yes [id number] 1{spray Use 1 [facility] 137 mcg 2-02 } [place] in ity of (0.1 %) 00:00: each [place] nasal spray 00 nostril 2 Med ical (two) Branch times daily. Use in each nostril as directed fluticasone 2020-02 Yes [id number] 2{puff} Inhale 2 [facility] propionate 2-02 Puffs 2 ity of (FLOVENT 00:00: (two) [place] HFA) 44 00 times Medical mcg/actuati daily. Branch on inhaler Rinse mouth after each use. azelastine 2020-02 Yes [id number] 1{spray Use 1 [facility] 137 mcg 2-02 } [place] in ity of (0.1 %) 00:00: each [place] nasal spray 00 nostril 2 Med ical (two) Branch times daily. Use in each nostril as directed fluticasone 2020-02 Yes [id number] 2{puff} Inhale 2 [facility] propionate 2-02 Puffs 2 ity of (FLOVENT 00:00: (two) [place] HFA) 44 00 times Medical mcg/actuati daily. Branch on inhaler Rinse mouth after each use. azelastine 2020-02 Yes [id number] 1{spray Use 1 [facility] 137 mcg 2-02 } [place] in ity of (0.1 %) 00:00: each [place] nasal spray 00 nostril 2 Med ical (two) Branch times daily. Use in each nostril as directed fluticasone 2020-02 Yes [id number] 2{puff} Inhale 2 [facility] propionate 2-02 Puffs 2 ity of (FLOVENT 00:00: (two) [place] HFA) 44 00 times Medical mcg/actuati daily. Branch on inhaler Rinse mouth after each use. azelastine 2020-02 Yes [id number] 1{spray Use 1 [facility] 137 mcg 2-02 } [place] in ity of (0.1 %) 00:00: each [place] nasal spray 00 nostril 2 Med ical (two) Branch times daily. Use in each nostril as directed fluticasone 2020-02 Yes [id number] 2{puff} Inhale 2 [facility] propionate 2-02 Puffs 2 ity of (FLOVENT 00:00: (two) [place] HFA) 44 00 times Medical mcg/actuati daily. Branch on inhaler Rinse mouth after each use. azelastine 2020-02 Yes [id number] 1{spray Use 1 [facility] 137 mcg 2-02 } [place] in ity of (0.1 %) 00:00: each [place] nasal spray 00 nostril 2 Med ical (two) Branch times daily. Use in each nostril as directed fluticasone 2020-02 Yes [id number] 2{puff} Inhale 2 [facility] propionate 2-02 Puffs 2 ity of (FLOVENT 00:00: (two) [place] HFA) 44 00 times Medical mcg/actuati daily. Branch on inhaler Rinse mouth after each use. mirtazapine 2020-02- No [id number] 7.5mg Take 1 [facility] 7.5 mg 03-17 07-15 tablet by ity of tablet 00:00: 00:00 mouth at [place] 00 :00 bedtime. Medical Branch albuterol Yes [id number] 2{puff} Inhale 2 [facility] (PROAIR 9-03 Puffs ity of HFA) 90 00:00: every 6 [place] mcg/actuati 00 (six) Medical on inhaler hours as Branc h needed for Wheezing or Shortness of Breath. albuterol Yes [id number] 2{puff} Inhale 2 [facility] (PROAIR 9-03 Puffs ity of HFA) 90 00:00: every 6 [place] mcg/actuati 00 (six) Medical on inhaler hours as Branc h needed for Wheezing or Shortness of Breath. albuterol Yes [id number] 2{puff} Inhale 2 [facility] (PROAIR 9-03 Puffs ity of HFA) 90 00:00: every 6 [place] mcg/actuati 00 (six) Medical on inhaler hours as Branc h needed for Wheezing or Shortness of Breath. albuterol Yes [id number] 2{puff} Inhale 2 [facility] (PROAIR 9-03 Puffs ity of HFA) 90 00:00: every 6 [place] mcg/actuati 00 (six) Medical on inhaler hours as Branc h needed for Wheezing or Shortness of Breath. albuterol Yes [id number] 2{puff} Inhale 2 [facility] (PROAIR 9-03 Puffs ity of HFA) 90 00:00: every 6 [place] mcg/actuati 00 (six) Medical on inhaler hours as Branc h needed for Wheezing or Shortness of Breath. albuterol Yes [id number] 2{puff} Inhale 2 [facility] (PROAIR 9-03 Puffs ity of HFA) 90 00:00: every 6 [place] mcg/actuati 00 (six) Medical on inhaler hours as Branc h needed for Wheezing or Shortness of Breath. albuterol Yes [id number] 2{puff} Inhale 2 [facility] (PROAIR 9-03 Puffs ity of HFA) 90 00:00: every 6 [place] mcg/actuati 00 (six) Medical on inhaler hours as Branc h needed for Wheezing or Shortness of Breath. albuterol Yes [id number] 2{puff} Inhale 2 [facility] (PROAIR 9-03 Puffs ity of HFA) 90 00:00: every 6 [place] mcg/actuati 00 (six) Medical on inhaler hours as Branc h needed for Wheezing or Shortness of Breath. albuterol Yes [id number] 2{puff} Inhale 2 [facility] (PROAIR 9-03 Puffs ity of HFA) 90 00:00: every 6 [place] mcg/actuati 00 (six) Medical on inhaler hours as Branc h needed for Wheezing or Shortness of Breath. albuterol Yes [id number] 2{puff} Inhale 2 [facility] (PROAIR 9-03 Puffs ity of HFA) 90 00:00: every 6 [place] mcg/actuati 00 (six) Medical on inhaler hours as Branc h needed for Wheezing or Shortness of Breath. albuterol Yes [id number] 2{puff} Inhale 2 [facility] (PROAIR 9-03 Puffs ity of HFA) 90 00:00: every 6 [place] mcg/actuati 00 (six) Medical on inhaler hours as Branc h needed for Wheezing or Shortness of Breath. albuterol Yes [id number] 2{puff} Inhale 2 [facility] (PROAIR 9-03 Puffs ity of HFA) 90 00:00: every 6 [place] mcg/actuati 00 (six) Medical on inhaler hours as Branc h needed for Wheezing or Shortness of Breath. albuterol Yes [id number] 2{puff} Inhale 2 [facility] (PROAIR 9-03 Puffs ity of HFA) 90 00:00: every 6 [place] mcg/actuati 00 (six) Medical on inhaler hours as Branc h needed for Wheezing or Shortness of Breath. albuterol Yes [id number] 2{puff} Inhale 2 [facility] (PROAIR 9-03 Puffs ity of HFA) 90 00:00: every 6 [place] mcg/actuati 00 (six) Medical on inhaler hours as Branc h needed for Wheezing or Shortness of Breath. albuterol Yes [id number] 2{puff} Inhale 2 [facility] (PROAIR 9-03 Puffs ity of HFA) 90 00:00: every 6 [place] mcg/actuati 00 (six) Medical on inhaler hours as Branc h needed for Wheezing or Shortness of Breath. albuterol 0 Yes [id number] 2{puff} Inhale 2 [facility] (PROAIR 9-03 Puffs ity of HFA) 90 00:00: every 6 [place] mcg/actuati 00 (six) Medical on inhaler hours as Branc h needed for Wheezing or Shortness of Breath. albuterol Yes [id number] 2{puff} Inhale 2 [facility] (PROAIR 9-03 Puffs ity of HFA) 90 00:00: every 6 [place] mcg/actuati 00 (six) Medical on inhaler hours as Branc h needed for Wheezing or Shortness of Breath. albuterol Yes [id number] 2{puff} Inhale 2 [facility] (PROAIR 9-03 Puffs ity of HFA) 90 00:00: every 6 [place] mcg/actuati 00 (six) Medical on inhaler hours as Branc h needed for Wheezing or Shortness of Breath. albuterol Yes [id number] 2{puff} Inhale 2 [facility] (PROAIR 9-03 Puffs ity of HFA) 90 00:00: every 6 [place] mcg/actuati 00 (six) Medical on inhaler hours as Branc h needed for Wheezing or Shortness of Breath. albuterol Yes [id number] 2{puff} Inhale 2 [facility] (PROAIR 9-03 Puffs ity of HFA) 90 00:00: every 6 [place] mcg/actuati 00 (six) Medical on inhaler hours as Branc h needed for Wheezing or Shortness of Breath. albuterol Yes [id number] 2{puff} Inhale 2 [facility] (PROAIR 9-03 Puffs ity of HFA) 90 00:00: every 6 [place] mcg/actuati 00 (six) Medical on inhaler hours as Branc h needed for Wheezing or Shortness of Breath. albuterol 0 Yes [id number] 2{puff} Inhale 2 [facility] (PROAIR 9-03 Puffs ity of HFA) 90 00:00: every 6 [place] mcg/actuati 00 (six) Medical on inhaler hours as Branc h needed for Wheezing or Shortness of Breath. albuterol 0 Yes [id number] 2{puff} Inhale 2 [facility] (PROAIR 9-03 Puffs ity of HFA) 90 00:00: every 6 [place] mcg/actuati 00 (six) Medical on inhaler hours as Branc h needed for Wheezing or Shortness of Breath. albuterol Yes [id number] 2{puff} Inhale 2 [facility] (PROAIR 9-03 Puffs ity of HFA) 90 00:00: every 6 [place] mcg/actuati 00 (six) Medical on inhaler hours as Branc h needed for Wheezing or Shortness of Breath. albuterol Yes [id number] 2{puff} Inhale 2 [facility] (PROAIR 9-03 Puffs ity of HFA) 90 00:00: every 6 [place] mcg/actuati 00 (six) Medical on inhaler hours as Branc h needed for Wheezing or Shortness of Breath. albuterol 0 Yes [id number] 2{puff} Inhale 2 [facility] (PROAIR 9-03 Puffs ity of HFA) 90 00:00: every 6 [place] mcg/actuati 00 (six) Medical on inhaler hours as Branc h needed for Wheezing or Shortness of Breath. albuterol 0 Yes [id number] 2{puff} Inhale 2 [facility] (PROAIR 9-03 Puffs ity of HFA) 90 00:00: every 6 [place] mcg/actuati 00 (six) Medical on inhaler hours as Branc h needed for Wheezing or Shortness of Breath. albuterol 0 Yes [id number] 2{puff} Inhale 2 [facility] (PROAIR 9-03 Puffs ity of HFA) 90 00:00: every 6 [place] mcg/actuati 00 (six) Medical on inhaler hours as Branc h needed for Wheezing or Shortness of Breath. albuterol Yes [id number] 2{puff} Inhale 2 [facility] (PROAIR 9-03 Puffs ity of HFA) 90 00:00: every 6 [place] mcg/actuati 00 (six) Medical on inhaler hours as Branc h needed for Wheezing or Shortness of Breath. albuterol Yes [id number] 2{puff} Inhale 2 [facility] (PROAIR 9-03 Puffs ity of HFA) 90 00:00: every 6 [place] mcg/actuati 00 (six) Medical on inhaler hours as Branc h needed for Wheezing or Shortness of Breath. albuterol Yes [id number] 2{puff} Inhale 2 [facility] (PROAIR 9-03 Puffs ity of HFA) 90 00:00: every 6 [place] mcg/actuati 00 (six) Medical on inhaler hours as Branc h needed for Wheezing or Shortness of Breath. albuterol Yes [id number] 2{puff} Inhale 2 [facility] (PROAIR 9-03 Puffs ity of HFA) 90 00:00: every 6 [place] mcg/actuati 00 (six) Medical on inhaler hours as Branc h needed for Wheezing or Shortness of Breath. albuterol Yes [id number] 2{puff} Inhale 2 [facility] (PROAIR 9-03 Puffs ity of HFA) 90 00:00: every 6 [place] mcg/actuati 00 (six) Medical on inhaler hours as Branc h needed for Wheezing or Shortness of Breath. albuterol Yes [id number] 2{puff} Inhale 2 [facility] (PROAIR 9-03 Puffs ity of HFA) 90 00:00: every 6 [place] mcg/actuati 00 (six) Medical on inhaler hours as Branc h needed for Wheezing or Shortness of Breath. albuterol Yes [id number] 2{puff} Inhale 2 [facility] (PROAIR 9-03 Puffs ity of HFA) 90 00:00: every 6 [place] mcg/actuati 00 (six) Medical on inhaler hours as Branc h needed for Wheezing or Shortness of Breath. albuterol Yes [id number] 2{puff} Inhale 2 [facility] (PROAIR 9-03 Puffs ity of HFA) 90 00:00: every 6 [place] mcg/actuati 00 (six) Medical on inhaler hours as Branc h needed for Wheezing or Shortness of Breath. albuterol Yes [id number] 2{puff} Inhale 2 [facility] (PROAIR 9-03 Puffs ity of HFA) 90 00:00: every 6 [place] mcg/actuati 00 (six) Medical on inhaler hours as Branc h needed for Wheezing or Shortness of Breath. albuterol Yes [id number] 2{puff} Inhale 2 [facility] (PROAIR 9-03 Puffs ity of HFA) 90 00:00: every 6 [place] mcg/actuati 00 (six) Medical on inhaler hours as Branc h needed for Wheezing or Shortness of Breath. albuterol Yes [id number] 2{puff} Inhale 2 [facility] (PROAIR 9-03 Puffs ity of HFA) 90 00:00: every 6 [place] mcg/actuati 00 (six) Medical on inhaler hours as Branc h needed for Wheezing or Shortness of Breath. albuterol Yes [id number] 2{puff} Inhale 2 [facility] (PROAIR 9-03 Puffs ity of HFA) 90 00:00: every 6 [place] mcg/actuati 00 (six) Medical on inhaler hours as Branc h needed for Wheezing or Shortness of Breath. albuterol Yes [id number] 2{puff} Inhale 2 [facility] (PROAIR 9-03 Puffs ity of HFA) 90 00:00: every 6 [place] mcg/actuati 00 (six) Medical on inhaler hours as Branc h needed for Wheezing or Shortness of Breath. albuterol Yes [id number] 2{puff} Inhale 2 [facility] (PROAIR 9-03 Puffs ity of HFA) 90 00:00: every 6 [place] mcg/actuati 00 (six) Medical on inhaler hours as Branc h needed for Wheezing or Shortness of Breath. albuterol Yes [id number] 2{puff} Inhale 2 [facility] (PROAIR 9-03 Puffs ity of HFA) 90 00:00: every 6 [place] mcg/actuati 00 (six) Medical on inhaler hours as Branc h needed for Wheezing or Shortness of Breath. albuterol Yes [id number] 2{puff} Inhale 2 [facility] (PROAIR 9-03 Puffs ity of HFA) 90 00:00: every 6 [place] mcg/actuati 00 (six) Medical on inhaler hours as Branc h needed for Wheezing or Shortness of Breath. albuterol Yes [id number] 2{puff} Inhale 2 [facility] (PROAIR 9-03 Puffs ity of HFA) 90 00:00: every 6 [place] mcg/actuati 00 (six) Medical on inhaler hours as Branc h needed for Wheezing or Shortness of Breath. albuterol Yes [id number] 2{puff} Inhale 2 [facility] (PROAIR 9-03 Puffs ity of HFA) 90 00:00: every 6 [place] mcg/actuati 00 (six) Medical on inhaler hours as Branc h needed for Wheezing or Shortness of Breath. albuterol Yes [id number] 2{puff} Inhale 2 [facility] (PROAIR 9-03 Puffs ity of HFA) 90 00:00: every 6 [place] mcg/actuati 00 (six) Medical on inhaler hours as Branc h needed for Wheezing or Shortness of Breath. albuterol Yes [id number] 2{puff} Inhale 2 [facility] (PROAIR 9-03 Puffs ity of HFA) 90 00:00: every 6 [place] mcg/actuati 00 (six) Medical on inhaler hours as Branc h needed for Wheezing or Shortness of Breath. albuterol Yes [id number] 2{puff} Inhale 2 [facility] (PROAIR 9-03 Puffs ity of HFA) 90 00:00: every 6 [place] mcg/actuati 00 (six) Medical on inhaler hours as Branc h needed for Wheezing or Shortness of Breath. albuterol Yes [id number] 2{puff} Inhale 2 [facility] (PROAIR 9-03 Puffs ity of HFA) 90 00:00: every 6 [place] mcg/actuati 00 (six) Medical on inhaler hours as Branc h needed for Wheezing or Shortness of Breath. albuterol 0 Yes [id number] 2{puff} Inhale 2 [facility] (PROAIR 9-03 Puffs ity of HFA) 90 00:00: every 6 [place] mcg/actuati 00 (six) Medical on inhaler hours as Branc h needed for Wheezing or Shortness of Breath. albuterol 0 Yes [id number] 2{puff} Inhale 2 [facility] (PROAIR 9-03 Puffs ity of HFA) 90 00:00: every 6 [place] mcg/actuati 00 (six) Medical on inhaler hours as Branc h needed for Wheezing or Shortness of Breath. albuterol Yes [id number] 2{puff} Inhale 2 [facility] (PROAIR 9-03 Puffs ity of HFA) 90 00:00: every 6 [place] mcg/actuati 00 (six) Medical on inhaler hours as Branc h needed for Wheezing or Shortness of Breath. albuterol Yes [id number] 2{puff} Inhale 2 [facility] (PROAIR 9-03 Puffs ity of HFA) 90 00:00: every 6 [place] mcg/actuati 00 (six) Medical on inhaler hours as Branc h needed for Wheezing or Shortness of Breath. albuterol 0 Yes [id number] 2{puff} Inhale 2 [facility] (PROAIR 9-03 Puffs ity of HFA) 90 00:00: every 6 [place] mcg/actuati 00 (six) Medical on inhaler hours as Branc h needed for Wheezing or Shortness of Breath. albuterol 0 Yes [id number] 2{puff} Inhale 2 [facility] (PROAIR 9-03 Puffs ity of HFA) 90 00:00: every 6 [place] mcg/actuati 00 (six) Medical on inhaler hours as Branc h needed for Wheezing or Shortness of Breath. albuterol 0 Yes [id number] 2{puff} Inhale 2 [facility] (PROAIR 9-03 Puffs ity of HFA) 90 00:00: every 6 [place] mcg/actuati 00 (six) Medical on inhaler hours as Branc h needed for Wheezing or Shortness of Breath. albuterol Yes [id number] 2{puff} Inhale 2 [facility] (PROAIR 9-03 Puffs ity of HFA) 90 00:00: every 6 [place] mcg/actuati 00 (six) Medical on inhaler hours as Branc h needed for Wheezing or Shortness of Breath. albuterol Yes [id number] 2{puff} Inhale 2 [facility] (PROAIR 9-03 Puffs ity of HFA) 90 00:00: every 6 [place] mcg/actuati 00 (six) Medical on inhaler hours as Branc h needed for Wheezing or Shortness of Breath. albuterol Yes [id number] 2{puff} Inhale 2 [facility] (PROAIR 9-03 Puffs ity of HFA) 90 00:00: every 6 [place] mcg/actuati 00 (six) Medical on inhaler hours as Branc h needed for Wheezing or Shortness of Breath. albuterol Yes [id number] 2{puff} Inhale 2 [facility] (PROAIR 9-03 Puffs ity of HFA) 90 00:00: every 6 [place] mcg/actuati 00 (six) Medical on inhaler hours as Branc h needed for Wheezing or Shortness of Breath. albuterol Yes [id number] 2{puff} Inhale 2 [facility] (PROAIR 9-03 Puffs ity of HFA) 90 00:00: every 6 [place] mcg/actuati 00 (six) Medical on inhaler hours as Branc h needed for Wheezing or Shortness of Breath. albuterol Yes [id number] 2{puff} Inhale 2 [facility] (PROAIR 9-03 Puffs ity of HFA) 90 00:00: every 6 [place] mcg/actuati 00 (six) Medical on inhaler hours as Branc h needed for Wheezing or Shortness of Breath. albuterol Yes [id number] 2{puff} Inhale 2 [facility] (PROAIR 9-03 Puffs ity of HFA) 90 00:00: every 6 [place] mcg/actuati 00 (six) Medical on inhaler hours as Branc h needed for Wheezing or Shortness of Breath. albuterol Yes [id number] 2{puff} Inhale 2 [facility] (PROAIR 9-03 Puffs ity of HFA) 90 00:00: every 6 [place] mcg/actuati 00 (six) Medical on inhaler hours as Branc h needed for Wheezing or Shortness of Breath. albuterol Yes [id number] 2{puff} Inhale 2 [facility] (PROAIR 9-03 Puffs ity of HFA) 90 00:00: every 6 [place] mcg/actuati 00 (six) Medical on inhaler hours as Branc h needed for Wheezing or Shortness of Breath. albuterol Yes [id number] 2{puff} Inhale 2 [facility] (PROAIR 9-03 Puffs ity of HFA) 90 00:00: every 6 [place] mcg/actuati 00 (six) Medical on inhaler hours as Branc h needed for Wheezing or Shortness of Breath. albuterol Yes [id number] 2{puff} Inhale 2 [facility] (PROAIR 9-03 Puffs ity of HFA) 90 00:00: every 6 [place] mcg/actuati 00 (six) Medical on inhaler hours as Branc h needed for Wheezing or Shortness of Breath. albuterol Yes [id number] 2{puff} Inhale 2 [facility] (PROAIR 9-03 Puffs ity of HFA) 90 00:00: every 6 [place] mcg/actuati 00 (six) Medical on inhaler hours as Branc h needed for Wheezing or Shortness of Breath. albuterol Yes [id number] 2{puff} Inhale 2 [facility] (PROAIR 9-03 Puffs ity of HFA) 90 00:00: every 6 [place] mcg/actuati 00 (six) Medical on inhaler hours as Branc h needed for Wheezing or Shortness of Breath. albuterol Yes [id number] 2{puff} Inhale 2 [facility] (PROAIR 9-03 Puffs ity of HFA) 90 00:00: every 6 [place] mcg/actuati 00 (six) Medical on inhaler hours as Branc h needed for Wheezing or Shortness of Breath. albuterol Yes [id number] 2{puff} Inhale 2 [facility] (PROAIR 9-03 Puffs ity of HFA) 90 00:00: every 6 [place] mcg/actuati 00 (six) Medical on inhaler hours as Branc h needed for Wheezing or Shortness of Breath. albuterol Yes [id number] 2{puff} Inhale 2 [facility] (PROAIR 9-03 Puffs ity of HFA) 90 00:00: every 6 [place] mcg/actuati 00 (six) Medical on inhaler hours as Branc h needed for Wheezing or Shortness of Breath. albuterol Yes [id number] 2{puff} Inhale 2 [facility] (PROAIR 9-03 Puffs ity of HFA) 90 00:00: every 6 [place] mcg/actuati 00 (six) Medical on inhaler hours as Branc h needed for Wheezing or Shortness of Breath. albuterol Yes [id number] 2{puff} Inhale 2 [facility] (PROAIR 9-03 Puffs ity of HFA) 90 00:00: every 6 [place] mcg/actuati 00 (six) Medical on inhaler hours as Branc h needed for Wheezing or Shortness of Breath. albuterol Yes [id number] 2{puff} Inhale 2 [facility] (PROAIR 9-03 Puffs ity of HFA) 90 00:00: every 6 [place] mcg/actuati 00 (six) Medical on inhaler hours as Branc h needed for Wheezing or Shortness of Breath. albuterol Yes [id number] 2{puff} Inhale 2 [facility] (PROAIR 9-03 Puffs ity of HFA) 90 00:00: every 6 [place] mcg/actuati 00 (six) Medical on inhaler hours as Branc h needed for Wheezing or Shortness of Breath. albuterol Yes [id number] 2{puff} Inhale 2 [facility] (PROAIR 9-03 Puffs ity of HFA) 90 00:00: every 6 [place] mcg/actuati 00 (six) Medical on inhaler hours as Branc h needed for Wheezing or Shortness of Breath. albuterol Yes [id number] 2{puff} Inhale 2 [facility] (PROAIR 9-03 Puffs ity of HFA) 90 00:00: every 6 [place] mcg/actuati 00 (six) Medical on inhaler hours as Branc h needed for Wheezing or Shortness of Breath. albuterol 0 Yes [id number] 2{puff} Inhale 2 [facility] (PROAIR 9-03 Puffs ity of HFA) 90 00:00: every 6 [place] mcg/actuati 00 (six) Medical on inhaler hours as Branc h needed for Wheezing or Shortness of Breath. albuterol 0 Yes [id number] 2{puff} Inhale 2 [facility] (PROAIR 9-03 Puffs ity of HFA) 90 00:00: every 6 [place] mcg/actuati 00 (six) Medical on inhaler hours as Branc h needed for Wheezing or Shortness of Breath. albuterol 0 Yes [id number] 2{puff} Inhale 2 [facility] (PROAIR 9-03 Puffs ity of HFA) 90 00:00: every 6 [place] mcg/actuati 00 (six) Medical on inhaler hours as Branc h needed for Wheezing or Shortness of Breath. albuterol Yes [id number] 2{puff} Inhale 2 [facility] (PROAIR 9-03 Puffs ity of HFA) 90 00:00: every 6 [place] mcg/actuati 00 (six) Medical on inhaler hours as Branc h needed for Wheezing or Shortness of Breath. albuterol 0 Yes [id number] 2{puff} Inhale 2 [facility] (PROAIR 9-03 Puffs ity of HFA) 90 00:00: every 6 [place] mcg/actuati 00 (six) Medical on inhaler hours as Branc h needed for Wheezing or Shortness of Breath. albuterol 0 Yes [id number] 2{puff} Inhale 2 [facility] (PROAIR 9-03 Puffs ity of HFA) 90 00:00: every 6 [place] mcg/actuati 00 (six) Medical on inhaler hours as Branc h needed for Wheezing or Shortness of Breath. albuterol 0 Yes [id number] 2{puff} Inhale 2 [facility] (PROAIR 9-03 Puffs ity of HFA) 90 00:00: every 6 [place] mcg/actuati 00 (six) Medical on inhaler hours as Branc h needed for Wheezing or Shortness of Breath. albuterol Yes [id number] 2{puff} Inhale 2 [facility] (PROAIR 9-03 Puffs ity of HFA) 90 00:00: every 6 [place] mcg/actuati 00 (six) Medical on inhaler hours as Branc h needed for Wheezing or Shortness of Breath. albuterol Yes [id number] 2{puff} Inhale 2 [facility] (PROAIR 9-03 Puffs ity of HFA) 90 00:00: every 6 [place] mcg/actuati 00 (six) Medical on inhaler hours as Branc h needed for Wheezing or Shortness of Breath. albuterol Yes [id number] 2{puff} Inhale 2 [facility] (PROAIR 9-03 Puffs ity of HFA) 90 00:00: every 6 [place] mcg/actuati 00 (six) Medical on inhaler hours as Branc h needed for Wheezing or Shortness of Breath. albuterol Yes [id number] 2{puff} Inhale 2 [facility] (PROAIR 9-03 Puffs ity of HFA) 90 00:00: every 6 [place] mcg/actuati 00 (six) Medical on inhaler hours as Branc h needed for Wheezing or Shortness of Breath. albuterol Yes [id number] 2{puff} Inhale 2 [facility] (PROAIR 9-03 Puffs ity of HFA) 90 00:00: every 6 [place] mcg/actuati 00 (six) Medical on inhaler hours as Branc h needed for Wheezing or Shortness of Breath. albuterol Yes [id number] 2{puff} Inhale 2 [facility] (PROAIR 9-03 Puffs ity of HFA) 90 00:00: every 6 [place] mcg/actuati 00 (six) Medical on inhaler hours as Branc h needed for Wheezing or Shortness of Breath. albuterol Yes [id number] 2{puff} Inhale 2 [facility] (PROAIR 9-03 Puffs ity of HFA) 90 00:00: every 6 [place] mcg/actuati 00 (six) Medical on inhaler hours as Branc h needed for Wheezing or Shortness of Breath. albuterol Yes [id number] 2{puff} Inhale 2 [facility] (PROAIR 9-03 Puffs ity of HFA) 90 00:00: every 6 [place] mcg/actuati 00 (six) Medical on inhaler hours as Branc h needed for Wheezing or Shortness of Breath. albuterol Yes [id number] 2{puff} Inhale 2 [facility] (PROAIR 9-03 Puffs ity of HFA) 90 00:00: every 6 [place] mcg/actuati 00 (six) Medical on inhaler hours as Branc h needed for Wheezing or Shortness of Breath. albuterol Yes [id number] 2{puff} Inhale 2 [facility] (PROAIR 9-03 Puffs ity of HFA) 90 00:00: every 6 [place] mcg/actuati 00 (six) Medical on inhaler hours as Branc h needed for Wheezing or Shortness of Breath. albuterol Yes [id number] 2{puff} Inhale 2 [facility] (PROAIR 9-03 Puffs ity of HFA) 90 00:00: every 6 [place] mcg/actuati 00 (six) Medical on inhaler hours as Branc h needed for Wheezing or Shortness of Breath. albuterol Yes [id number] 2{puff} Inhale 2 [facility] (PROAIR 9-03 Puffs ity of HFA) 90 00:00: every 6 [place] mcg/actuati 00 (six) Medical on inhaler hours as Branc h needed for Wheezing or Shortness of Breath. albuterol Yes [id number] 2{puff} Inhale 2 [facility] (PROAIR 9-03 Puffs ity of HFA) 90 00:00: every 6 [place] mcg/actuati 00 (six) Medical on inhaler hours as Branc h needed for Wheezing or Shortness of Breath. albuterol Yes [id number] 2{puff} Inhale 2 [facility] (PROAIR 9-03 Puffs ity of HFA) 90 00:00: every 6 [place] mcg/actuati 00 (six) Medical on inhaler hours as Branc h needed for Wheezing or Shortness of Breath. albuterol Yes [id number] 2{puff} Inhale 2 [facility] (PROAIR 9-03 Puffs ity of HFA) 90 00:00: every 6 [place] mcg/actuati 00 (six) Medical on inhaler hours as Branc h needed for Wheezing or Shortness of Breath. albuterol Yes [id number] 2{puff} Inhale 2 [facility] (PROAIR 9-03 Puffs ity of HFA) 90 00:00: every 6 [place] mcg/actuati 00 (six) Medical on inhaler hours as Branc h needed for Wheezing or Shortness of Breath. albuterol Yes [id number] 2{puff} Inhale 2 [facility] (PROAIR 9-03 Puffs ity of HFA) 90 00:00: every 6 [place] mcg/actuati 00 (six) Medical on inhaler hours as Branc h needed for Wheezing or Shortness of Breath. albuterol Yes [id number] 2{puff} Inhale 2 [facility] (PROAIR 9-03 Puffs ity of HFA) 90 00:00: every 6 [place] mcg/actuati 00 (six) Medical on inhaler hours as Branc h needed for Wheezing or Shortness of Breath. albuterol Yes [id number] 2{puff} Inhale 2 [facility] (PROAIR 9-03 Puffs ity of HFA) 90 00:00: every 6 [place] mcg/actuati 00 (six) Medical on inhaler hours as Branc h needed for Wheezing or Shortness of Breath. albuterol Yes [id number] 2{puff} Inhale 2 [facility] (PROAIR 9-03 Puffs ity of HFA) 90 00:00: every 6 [place] mcg/actuati 00 (six) Medical on inhaler hours as Branc h needed for Wheezing or Shortness of Breath. albuterol Yes [id number] 2{puff} Inhale 2 [facility] (PROAIR 9-03 Puffs ity of HFA) 90 00:00: every 6 [place] mcg/actuati 00 (six) Medical on inhaler hours as Branc h needed for Wheezing or Shortness of Breath. albuterol Yes [id number] 2{puff} Inhale 2 [facility] (PROAIR 9-03 Puffs ity of HFA) 90 00:00: every 6 [place] mcg/actuati 00 (six) Medical on inhaler hours as Branc h needed for Wheezing or Shortness of Breath. albuterol 0 Yes [id number] 2{puff} Inhale 2 [facility] (PROAIR 9-03 Puffs ity of HFA) 90 00:00: every 6 [place] mcg/actuati 00 (six) Medical on inhaler hours as Branc h needed for Wheezing or Shortness of Breath. albuterol 0 Yes [id number] 2{puff} Inhale 2 [facility] (PROAIR 9-03 Puffs ity of HFA) 90 00:00: every 6 [place] mcg/actuati 00 (six) Medical on inhaler hours as Branc h needed for Wheezing or Shortness of Breath. albuterol 0 Yes [id number] 2{puff} Inhale 2 [facility] (PROAIR 9-03 Puffs ity of HFA) 90 00:00: every 6 [place] mcg/actuati 00 (six) Medical on inhaler hours as Branc h needed for Wheezing or Shortness of Breath. albuterol 0 Yes [id number] 2{puff} Inhale 2 [facility] (PROAIR 9-03 Puffs ity of HFA) 90 00:00: every 6 [place] mcg/actuati 00 (six) Medical on inhaler hours as Branc h needed for Wheezing or Shortness of Breath. albuterol 0 Yes [id number] 2{puff} Inhale 2 [facility] (PROAIR 9-03 Puffs ity of HFA) 90 00:00: every 6 [place] mcg/actuati 00 (six) Medical on inhaler hours as Branc h needed for Wheezing or Shortness of Breath. albuterol 0 Yes [id number] 2{puff} Inhale 2 [facility] (PROAIR 9-03 Puffs ity of HFA) 90 00:00: every 6 [place] mcg/actuati 00 (six) Medical on inhaler hours as Branc h needed for Wheezing or Shortness of Breath. albuterol 0 Yes [id number] 2{puff} Inhale 2 [facility] (PROAIR 9-03 Puffs ity of HFA) 90 00:00: every 6 [place] mcg/actuati 00 (six) Medical on inhaler hours as Branc h needed for Wheezing or Shortness of Breath. albuterol Yes [id number] 2{puff} Inhale 2 [facility] (PROAIR 9-03 Puffs ity of HFA) 90 00:00: every 6 [place] mcg/actuati 00 (six) Medical on inhaler hours as Branc h needed for Wheezing or Shortness of Breath. albuterol Yes [id number] 2{puff} Inhale 2 [facility] (PROAIR 9-03 Puffs ity of HFA) 90 00:00: every 6 [place] mcg/actuati 00 (six) Medical on inhaler hours as Branc h needed for Wheezing or Shortness of Breath. amLODIPine 2021- No [id number] 2.5mg Take 1 [facility] 2.5 mg 07-20 tablet by ity of tablet 00:00: 00:00 mouth [place] 00 :00 daily. [facility] amLODIPine 2020-2021- No [id number] 2.5mg Take 1 [facility] 2.5 mg 07-20 tablet by ity of tablet 00:00: 00:00 mouth [place] 00 :00 daily. [facility] hydroCHLORO 2021- No [id number] 25mg Take 1 [facility] thiazide 25 07-20 tablet by it y of mg tablet 00:00: 00:00 mouth [place] 00 :00 daily. [facility] aspirin 81 2019-02 Yes [id number] 81mg Take 1 [facility] mg chewable 0-01 [id number] tablet by i ty of tablet 00:00: mouth [place] 00 daily. [facility] aspirin 81 2019-02 Yes [id number] 81mg Take 1 [facility] mg chewable 0-01 [id number] tablet by i ty of tablet 00:00: mouth [place] 00 daily. [facility] aspirin 81 2019-02 Yes [id number] 81mg Take 1 [facility] mg chewable 0-01 [id number] tablet by i ty of tablet 00:00: mouth [place] 00 daily. [facility] aspirin 81 2019-02 Yes [id number] 81mg Take 1 [facility] mg chewable 0-01 [id number] tablet by i ty of tablet 00:00: mouth [place] 00 daily. [facility] aspirin 81 2019-02 Yes [id number] 81mg Take 1 [facility] mg chewable 0-01 [id number] tablet by i ty of tablet 00:00: mouth [place] 00 daily. [facility] aspirin 81 2020- Yes [id number] 81mg Take 1 [facility] mg chewable 0-01 [id number] tablet by i ty of tablet 00:00: mouth [place] 00 daily. [facility] aspirin 81 2020- Yes [id number] 81mg Take 1 [facility] mg chewable 0-01 [id number] tablet by i ty of tablet 00:00: mouth [place] 00 daily. [facility] aspirin 81 2020- Yes [id number] 81mg Take 1 [facility] mg chewable 0-01 [id number] tablet by i ty of tablet 00:00: mouth [place] 00 daily. [facility] aspirin 81 2020- Yes [id number] 81mg Take 1 [facility] mg chewable 0-01 [id number] tablet by i ty of tablet 00:00: mouth [place] 00 daily. [facility] aspirin 81 2020- Yes [id number] 81mg Take 1 [facility] mg chewable 0-01 [id number] tablet by i ty of tablet 00:00: mouth [place] 00 daily. [facility] aspirin 81 2020- Yes [id number] 81mg Take 1 [facility] mg chewable 0-01 [id number] tablet by i ty of tablet 00:00: mouth [place] 00 daily. [facility] aspirin 81 2020- Yes [id number] 81mg Take 1 [facility] mg chewable 0-01 [id number] tablet by i ty of tablet 00:00: mouth [place] 00 daily. [facility] aspirin 81 2020- Yes [id number] 81mg Take 1 [facility] mg chewable 0-01 [id number] tablet by i ty of tablet 00:00: mouth [place] 00 daily. [facility] aspirin 81 2020- Yes [id number] 81mg Take 1 [facility] mg chewable 0-01 [id number] tablet by i ty of tablet 00:00: mouth [place] 00 daily. [facility] aspirin 81 2020- Yes [id number] 81mg Take 1 [facility] mg chewable 0-01 [id number] tablet by i ty of tablet 00:00: mouth [place] 00 daily. [facility] aspirin 81 2020- Yes [id number] 81mg Take 1 [facility] mg chewable 0-01 [id number] tablet by i ty of tablet 00:00: mouth [place] 00 daily. [facility] aspirin 81 2020- Yes [id number] 81mg Take 1 [facility] mg chewable 0-01 [id number] tablet by i ty of tablet 00:00: mouth [place] 00 daily. [facility] aspirin 81 2020- Yes [id number] 81mg Take 1 [facility] mg chewable 0-01 [id number] tablet by i ty of tablet 00:00: mouth [place] 00 daily. [facility] aspirin 81 2020- Yes [id number] 81mg Take 1 [facility] mg chewable 0-01 [id number] tablet by i ty of tablet 00:00: mouth [place] 00 daily. [facility] aspirin 81 2019- Yes [id number] 81mg Take 1 [facility] mg chewable 0-01 [id number] tablet by i ty of tablet 00:00: mouth [place] 00 daily. [facility] aspirin 81 2019- Yes [id number] 81mg Take 1 [facility] mg chewable 0-01 [id number] tablet by i ty of tablet 00:00: mouth [place] 00 daily. [facility] aspirin 81 2019- Yes [id number] 81mg Take 1 [facility] mg chewable 0-01 [id number] tablet by i ty of tablet 00:00: mouth [place] 00 daily. [facility] aspirin 81 2019- Yes [id number] 81mg Take 1 [facility] mg chewable 0-01 [id number] tablet by i ty of tablet 00:00: mouth [place] 00 daily. [facility] aspirin 81 2019- Yes [id number] 81mg Take 1 [facility] mg chewable 0-01 [id number] tablet by i ty of tablet 00:00: mouth [place] 00 daily. [facility] aspirin 81 2019- Yes [id number] 81mg Take 1 [facility] mg chewable 0-01 [id number] tablet by i ty of tablet 00:00: mouth [place] 00 daily. [facility] aspirin 81 2020- Yes [id number] 81mg Take 1 [facility] mg chewable 0-01 [id number] tablet by i ty of tablet 00:00: mouth [place] 00 daily. [facility] aspirin 81 2019- Yes [id number] 81mg Take 1 [facility] mg chewable 0-01 [id number] tablet by i ty of tablet 00:00: mouth [place] 00 daily. [facility] aspirin 81 2020- Yes [id number] 81mg Take 1 [facility] mg chewable 0-01 [id number] tablet by i ty of tablet 00:00: mouth [place] 00 daily. [facility] aspirin 81 2020- Yes [id number] 81mg Take 1 [facility] mg chewable 0-01 [id number] tablet by i ty of tablet 00:00: mouth [place] 00 daily. [facility] aspirin 81 2020- Yes [id number] 81mg Take 1 [facility] mg chewable 0-01 [id number] tablet by i ty of tablet 00:00: mouth [place] 00 daily. [facility] aspirin 81 2020- Yes [id number] 81mg Take 1 [facility] mg chewable 0-01 [id number] tablet by i ty of tablet 00:00: mouth [place] 00 daily. [facility] aspirin 81 2020- Yes [id number] 81mg Take 1 [facility] mg chewable 0-01 [id number] tablet by i ty of tablet 00:00: mouth [place] 00 daily. [facility] aspirin 81 2020- Yes [id number] 81mg Take 1 [facility] mg chewable 0-01 [id number] tablet by i ty of tablet 00:00: mouth [place] 00 daily. [facility] aspirin 81 2020- Yes [id number] 81mg Take 1 [facility] mg chewable 0-01 [id number] tablet by i ty of tablet 00:00: mouth [place] 00 daily. [facility] aspirin 81 2020- Yes [id number] 81mg Take 1 [facility] mg chewable 0-01 [id number] tablet by i ty of tablet 00:00: mouth [place] 00 daily. [facility] aspirin 81 2020- Yes [id number] 81mg Take 1 [facility] mg chewable 0-01 [id number] tablet by i ty of tablet 00:00: mouth [place] 00 daily. [facility] aspirin 81 2020- Yes [id number] 81mg Take 1 [facility] mg chewable 0-01 [id number] tablet by i ty of tablet 00:00: mouth [place] 00 daily. [facility] aspirin 81 2020- Yes [id number] 81mg Take 1 [facility] mg chewable 0-01 [id number] tablet by i ty of tablet 00:00: mouth [place] 00 daily. [facility] aspirin 81 2020- Yes [id number] 81mg Take 1 [facility] mg chewable 0-01 [id number] tablet by i ty of tablet 00:00: mouth [place] 00 daily. [facility] aspirin 81 2020- Yes [id number] 81mg Take 1 [facility] mg chewable 0-01 [id number] tablet by i ty of tablet 00:00: mouth [place] 00 daily. [facility] aspirin 81 2020- Yes [id number] 81mg Take 1 [facility] mg chewable 0-01 [id number] tablet by i ty of tablet 00:00: mouth [place] 00 daily. [facility] aspirin 81 2020- Yes [id number] 81mg Take 1 [facility] mg chewable 0-01 [id number] tablet by i ty of tablet 00:00: mouth [place] 00 daily. [facility] aspirin 81 2020- Yes [id number] 81mg Take 1 [facility] mg chewable 0-01 [id number] tablet by i ty of tablet 00:00: mouth [place] 00 daily. [facility] aspirin 81 2020- Yes [id number] 81mg Take 1 [facility] mg chewable 0-01 [id number] tablet by i ty of tablet 00:00: mouth [place] 00 daily. [facility] aspirin 81 2019- Yes [id number] 81mg Take 1 [facility] mg chewable 0-01 [id number] tablet by i ty of tablet 00:00: mouth [place] 00 daily. [facility] aspirin 81 2019- Yes [id number] 81mg Take 1 [facility] mg chewable 0-01 [id number] tablet by i ty of tablet 00:00: mouth [place] 00 daily. [facility] aspirin 81 2019- Yes [id number] 81mg Take 1 [facility] mg chewable 0-01 [id number] tablet by i ty of tablet 00:00: mouth [place] 00 daily. [facility] aspirin 81 2019- Yes [id number] 81mg Take 1 [facility] mg chewable 0-01 [id number] tablet by i ty of tablet 00:00: mouth [place] 00 daily. [facility] aspirin 81 2019- Yes [id number] 81mg Take 1 [facility] mg chewable 0-01 [id number] tablet by i ty of tablet 00:00: mouth [place] 00 daily. [facility] aspirin 81 2019- Yes [id number] 81mg Take 1 [facility] mg chewable 0-01 [id number] tablet by i ty of tablet 00:00: mouth [place] 00 daily. [facility] aspirin 81 2020- Yes [id number] 81mg Take 1 [facility] mg chewable 0-01 [id number] tablet by i ty of tablet 00:00: mouth [place] 00 daily. [facility] aspirin 81 2019- Yes [id number] 81mg Take 1 [facility] mg chewable 0-01 [id number] tablet by i ty of tablet 00:00: mouth [place] 00 daily. [facility] aspirin 81 2020- Yes [id number] 81mg Take 1 [facility] mg chewable 0-01 [id number] tablet by i ty of tablet 00:00: mouth [place] 00 daily. [facility] aspirin 81 2020- Yes [id number] 81mg Take 1 [facility] mg chewable 0-01 [id number] tablet by i ty of tablet 00:00: mouth [place] 00 daily. [facility] aspirin 81 2020- Yes [id number] 81mg Take 1 [facility] mg chewable 0-01 [id number] tablet by i ty of tablet 00:00: mouth [place] 00 daily. [facility] aspirin 81 2020- Yes [id number] 81mg Take 1 [facility] mg chewable 0-01 [id number] tablet by i ty of tablet 00:00: mouth [place] 00 daily. [facility] aspirin 81 2020- Yes [id number] 81mg Take 1 [facility] mg chewable 0-01 [id number] tablet by i ty of tablet 00:00: mouth [place] 00 daily. [facility] aspirin 81 2020- Yes [id number] 81mg Take 1 [facility] mg chewable 0-01 [id number] tablet by i ty of tablet 00:00: mouth [place] 00 daily. [facility] aspirin 81 2020- Yes [id number] 81mg Take 1 [facility] mg chewable 0-01 [id number] tablet by i ty of tablet 00:00: mouth [place] 00 daily. [facility] aspirin 81 2020- Yes [id number] 81mg Take 1 [facility] mg chewable 0-01 [id number] tablet by i ty of tablet 00:00: mouth [place] 00 daily. [facility] aspirin 81 2020- Yes [id number] 81mg Take 1 [facility] mg chewable 0-01 [id number] tablet by i ty of tablet 00:00: mouth [place] 00 daily. [facility] aspirin 81 2020- Yes [id number] 81mg Take 1 [facility] mg chewable 0-01 [id number] tablet by i ty of tablet 00:00: mouth [place] 00 daily. [facility] aspirin 81 2020- Yes [id number] 81mg Take 1 [facility] mg chewable 0-01 [id number] tablet by i ty of tablet 00:00: mouth [place] 00 daily. [facility] aspirin 81 2020- Yes [id number] 81mg Take 1 [facility] mg chewable 0-01 [id number] tablet by i ty of tablet 00:00: mouth [place] 00 daily. [facility] aspirin 81 2020- Yes [id number] 81mg Take 1 [facility] mg chewable 0-01 [id number] tablet by i ty of tablet 00:00: mouth [place] 00 daily. [facility] aspirin 81 2020- Yes [id number] 81mg Take 1 [facility] mg chewable 0-01 [id number] tablet by i ty of tablet 00:00: mouth [place] 00 daily. [facility] aspirin 81 2020- Yes [id number] 81mg Take 1 [facility] mg chewable 0-01 [id number] tablet by i ty of tablet 00:00: mouth [place] 00 daily. [facility] aspirin 81 2020- Yes [id number] 81mg Take 1 [facility] mg chewable 0-01 [id number] tablet by i ty of tablet 00:00: mouth [place] 00 daily. [facility] aspirin 81 2020- Yes [id number] 81mg Take 1 [facility] mg chewable 0-01 [id number] tablet by i ty of tablet 00:00: mouth [place] 00 daily. [facility] aspirin 81 2019- Yes [id number] 81mg Take 1 [facility] mg chewable 0-01 [id number] tablet by i ty of tablet 00:00: mouth [place] 00 daily. [facility] aspirin 81 2019- Yes [id number] 81mg Take 1 [facility] mg chewable 0-01 [id number] tablet by i ty of tablet 00:00: mouth [place] 00 daily. [facility] aspirin 81 2019- Yes [id number] 81mg Take 1 [facility] mg chewable 0-01 [id number] tablet by i ty of tablet 00:00: mouth [place] 00 daily. [facility] aspirin 81 2019- Yes [id number] 81mg Take 1 [facility] mg chewable 0-01 [id number] tablet by i ty of tablet 00:00: mouth [place] 00 daily. [facility] aspirin 81 2019- Yes [id number] 81mg Take 1 [facility] mg chewable 0-01 [id number] tablet by i ty of tablet 00:00: mouth [place] 00 daily. [facility] aspirin 81 2019- Yes [id number] 81mg Take 1 [facility] mg chewable 0-01 [id number] tablet by i ty of tablet 00:00: mouth [place] 00 daily. [facility] aspirin 81 2020- Yes [id number] 81mg Take 1 [facility] mg chewable 0-01 [id number] tablet by i ty of tablet 00:00: mouth [place] 00 daily. [facility] aspirin 81 2019- Yes [id number] 81mg Take 1 [facility] mg chewable 0-01 [id number] tablet by i ty of tablet 00:00: mouth [place] 00 daily. [facility] aspirin 81 2020- Yes [id number] 81mg Take 1 [facility] mg chewable 0-01 [id number] tablet by i ty of tablet 00:00: mouth [place] 00 daily. [facility] aspirin 81 2020- Yes [id number] 81mg Take 1 [facility] mg chewable 0-01 [id number] tablet by i ty of tablet 00:00: mouth [place] 00 daily. [facility] aspirin 81 2020- Yes [id number] 81mg Take 1 [facility] mg chewable 0-01 [id number] tablet by i ty of tablet 00:00: mouth [place] 00 daily. [facility] aspirin 81 2020- Yes [id number] 81mg Take 1 [facility] mg chewable 0-01 [id number] tablet by i ty of tablet 00:00: mouth [place] 00 daily. [facility] aspirin 81 2020- Yes [id number] 81mg Take 1 [facility] mg chewable 0-01 [id number] tablet by i ty of tablet 00:00: mouth [place] 00 daily. [facility] aspirin 81 2020- Yes [id number] 81mg Take 1 [facility] mg chewable 0-01 [id number] tablet by i ty of tablet 00:00: mouth [place] 00 daily. [facility] aspirin 81 2020- Yes [id number] 81mg Take 1 [facility] mg chewable 0-01 [id number] tablet by i ty of tablet 00:00: mouth [place] 00 daily. [facility] aspirin 81 2020- Yes [id number] 81mg Take 1 [facility] mg chewable 0-01 [id number] tablet by i ty of tablet 00:00: mouth [place] 00 daily. [facility] aspirin 81 2020- Yes [id number] 81mg Take 1 [facility] mg chewable 0-01 [id number] tablet by i ty of tablet 00:00: mouth [place] 00 daily. [facility] aspirin 81 2020- Yes [id number] 81mg Take 1 [facility] che[facility]-01 [id number] tablet by i ty of tablet 00:00: mouth [place] 00 daily. [facility] aspirin 81 2020- Yes [id number] 81mg Take 1 [facility] mg chewable 0-01 [id number] tablet by i ty of tablet 00:00: mouth [place] 00 daily. [facility] aspirin 81 2020- Yes [id number] 81mg Take 1 [facility] mg chewable 0-01 [id number] tablet by i ty of tablet 00:00: mouth [place] 00 daily. [facility] aspirin 81 2020- Yes [id number] 81mg Take 1 [facility] mg chewable 0-01 [id number] tablet by i ty of tablet 00:00: mouth [place] 00 daily. [facility] aspirin 81 2020- Yes [id number] 81mg Take 1 [facility] mg chewable 0-01 [id number] tablet by i ty of tablet 00:00: mouth [place] 00 daily. [facility] aspirin 81 2020- Yes [id number] 81mg Take 1 [facility] mg chewable 0-01 [id number] tablet by i ty of tablet 00:00: mouth [place] 00 daily. [facility] aspirin 81 2020- Yes [id number] 81mg Take 1 [facility] mg chewable 0-01 [id number] tablet by i ty of tablet 00:00: mouth [place] 00 daily. [facility] aspirin 81 2020- Yes [id number] 81mg Take 1 [facility] mg chewable 0-01 [id number] tablet by i ty of tablet 00:00: mouth [place] 00 daily. [facility] aspirin 81 2019- Yes [id number] 81mg Take 1 [facility] mg chewable 0-01 [id number] tablet by i ty of tablet 00:00: mouth [place] 00 daily. [facility] aspirin 81 2019- Yes [id number] 81mg Take 1 [facility] mg chewable 0-01 [id number] tablet by i ty of tablet 00:00: mouth [place] 00 daily. [facility] aspirin 81 2019- Yes [id number] 81mg Take 1 [facility] mg chewable 0-01 [id number] tablet by i ty of tablet 00:00: mouth [place] 00 daily. [facility] aspirin 81 2019- Yes [id number] 81mg Take 1 [facility] mg chewable 0-01 [id number] tablet by i ty of tablet 00:00: mouth [place] 00 daily. [facility] aspirin 81 2019- Yes [id number] 81mg Take 1 [facility] mg chewable 0-01 [id number] tablet by i ty of tablet 00:00: mouth [place] 00 daily. [facility] aspirin 81 2019- Yes [id number] 81mg Take 1 [facility] mg chewable 0-01 [id number] tablet by i ty of tablet 00:00: mouth [place] 00 daily. [facility] aspirin 81 2020- Yes [id number] 81mg Take 1 [facility] mg chewable 0-01 [id number] tablet by i ty of tablet 00:00: mouth [place] 00 daily. [facility] aspirin 81 2019- Yes [id number] 81mg Take 1 [facility] mg chewable 0-01 [id number] tablet by i ty of tablet 00:00: mouth [place] 00 daily. [facility] aspirin 81 2020- Yes [id number] 81mg Take 1 [facility] mg chewable 0-01 [id number] tablet by i ty of tablet 00:00: mouth [place] 00 daily. [facility] aspirin 81 2020- Yes [id number] 81mg Take 1 [facility] mg chewable 0-01 [id number] tablet by i ty of tablet 00:00: mouth [place] 00 daily. [facility] aspirin 81 2020- Yes [id number] 81mg Take 1 [facility] mg chewable 0-01 [id number] tablet by i ty of tablet 00:00: mouth [place] 00 daily. [facility] aspirin 81 2019- Yes [id number] 81mg Take 1 [facility] mg chewable 0-01 [id number] tablet by i ty of tablet 00:00: mouth [place] 00 daily. [facility] aspirin 81 2020- Yes [id number] 81mg Take 1 [facility] mg chewable 0-01 [id number] tablet by i ty of tablet 00:00: mouth [place] 00 daily. [facility] aspirin 81 2019- Yes [id number] 81mg Take 1 [facility] mg chewable 0-01 [id number] tablet by i ty of tablet 00:00: mouth [place] 00 daily. [facility] aspirin 81 2019- Yes [id number] 81mg Take 1 [facility] mg chewable 0-01 [id number] tablet by i ty of tablet 00:00: mouth [place] 00 daily. [facility] aspirin 81 2019- Yes [id number] 81mg Take 1 [facility] mg chewable 0-01 [id number] tablet by i ty of tablet 00:00: mouth [place] 00 daily. [facility] aspirin 81 2019- Yes [id number] 81mg Take 1 [facility] mg chewable 0-01 [id number] tablet by i ty of tablet 00:00: mouth [place] 00 daily. [facility] aspirin 81 2019- Yes [id number] 81mg Take 1 [facility] mg chewable 0-01 [id number] tablet by i ty of tablet 00:00: mouth [place] 00 daily. [facility] aspirin 81 2020- Yes [id number] 81mg Take 1 [facility] mg chewable 0-01 [id number] tablet by i ty of tablet 00:00: mouth [place] 00 daily. [facility] aspirin 81 2020- Yes [id number] 81mg Take 1 [facility] mg chewable 0-01 [id number] tablet by i ty of tablet 00:00: mouth [place] 00 daily. [facility] aspirin 81 2019- Yes [id number] 81mg Take 1 [facility] mg chewable 0-01 [id number] tablet by i ty of tablet 00:00: mouth [place] 00 daily. [facility] aspirin 81 2020- Yes [id number] 81mg Take 1 [facility] mg chewable 0-01 [id number] tablet by i ty of tablet 00:00: mouth [place] 00 daily. [facility] aspirin 81 2020- Yes [id number] 81mg Take 1 [facility] mg chewable 0-01 [id number] tablet by i ty of tablet 00:00: mouth [place] 00 daily. [facility] pantoprazol 2019-02- No [id number] 20mg Take 1 [facility] e 20 mg EC 0 07-15 tablet by ity of tablet 00:00: 00:00 mouth [place] 00 :00 daily. Medical Take 30 Branch mins before breakfast. losartan 2020-0 Yes 50mg QD Take 0.5 [...] for premedicat ion hydrALAZINE 2020-0 Yes 50mg Q.[id number] Take [address] [facility] (APRESOLINE 2-17 [id number] [facility] ) 50 MG 00:00: 3D (three) Medical tablet 00 times Center daily . hydroCHLORO 2020-0 Yes 25mg QD Take [address] [facility] thiazide 2-17 [facility] (HYDRODIURI 00:00: daily. [facility]) 25 MG 00 Center tablet hydrALAZINE 2020-0 Yes 50mg Q.[id number] Take [address] [facility] (APRESOLINE 2-17 [id number] [facility] ) 50 MG 00:00: 3D (three) Medical tablet 00 times Center daily . hydroCHLORO 2020-0 Yes 25mg QD Take [address] [facility] thiazide 2-17 [facility] (HYDRODIURI 00:00: daily. [facility]) 25 MG 00 Center tablet hydrALAZINE 2020-0 Yes 50mg Q.[id number] Take [address] [facility] (APRESOLINE 2-17 [id number] by [facility] ) 50 MG 00:00: 3D (three) Medical tablet 00 times Center daily . hydroCHLORO 2020-0 Yes 25mg QD Take [address] [facility] thiazide 2-17 by [facility] (HYDRODIURI 00:00: daily. [facility]) 25 MG 00 Center tablet hydrALAZINE 2020-0 Yes 50mg Q.[id number] Take [address] [facility] (APRESOLINE 2-17 [id number] by [facility] ) 50 MG 00:00: 3D (three) Medical tablet 00 times Center daily . hydroCHLORO 2020-0 Yes 25mg QD Take [address] [facility] thiazide 2-17 by [facility] (HYDRODIURI 00:00: daily. [facility]) 25 MG 00 Center tablet hydrALAZINE 2020-0 Yes 50mg Q.[id number] Take [address] [facility] (APRESOLINE 2-17 [id number] by [facility] ) 50 MG 00:00: 3D (three) Medical tablet 00 times Center daily . hydroCHLORO 2020-0 Yes 25mg QD Take [address] [facility] thiazide 2-17 by [facility] (HYDRODIURI 00:00: daily. [facility]) 25 MG 00 Center tablet hydrALAZINE 2020-0 Yes 50mg Q.[id number] Take [address] [facility] (APRESOLINE 2-17 [id number] by [facility] ) 50 MG 00:00: 3D (three) Medical tablet 00 times Center daily . hydroCHLORO 2020-0 Yes 25mg QD Take [address] [facility] thiazide 2-17 by [facility] (HYDRODIURI 00:00: daily. [facility]) 25 MG 00 Center tablet hydrALAZINE 2020-0 Yes 50mg Q.[id number] Take [address] [facility] (APRESOLINE 2-17 [id number] by [facility] ) 50 MG 00:00: 3D (three) Medical tablet 00 times Center daily . hydroCHLORO 2020-0 Yes 25mg QD Take [address] [facility] thiazide 2-17 by [facility] (HYDRODIURI 00:00: daily. [facility]) 25 MG 00 Center tablet hydrALAZINE 2020-0 Yes 50mg Q.[id number] Take [address] [facility] (APRESOLINE 2-17 [id number] by [facility] ) 50 MG 00:00: 3D (three) Medical tablet 00 times Center daily . hydroCHLORO 2020-0 Yes 25mg QD Take [address] [facility] thiazide 2-17 by [facility] (HYDRODIURI 00:00: daily. [facility]) 25 MG 00 Center tablet hydrALAZINE 2020-0 Yes 50mg Q.[id number] Take [address] [facility] (APRESOLINE 2-17 [id number] by [facility] ) 50 MG 00:00: 3D (three) Medical tablet 00 times Center daily . hydroCHLORO 2020-0 Yes 25mg QD Take [address] [facility] thiazide 2-17 by mouth [facility] (HYDRODIURI 00:00: daily. [facility] L) 25 MG 00 Center tablet hydrALAZINE 2020-0 Yes 50mg Q.[id number] Take [address] [facility] (APRESOLINE 2-17 [id number] by [facility] ) 50 MG 00:00: 3D (three) Medical tablet 00 times Center daily . hydroCHLORO 2020-0 Yes 25mg QD Take [address] [facility] thiazide 2-17 by [facility] (HYDRODIURI 00:00: daily. [facility]i angel[facility] L) [address] [place] [address] tablet aspirin 81 2019-0 Yes 81mg QD Take [address] [facility] chewable 6-21 by mouth [facility] tablet 00:00: daily. [address] aspirin 81 2019-0 Yes 81mg QD Take [address] [facility] chewable 6-21 by mouth [facility] tablet 00:00: daily. [address] aspirin 81 2019-0 Yes 81mg QD Take [address] [facility] chewable 6-21 by mouth [facility] tablet 00:00: daily. [address] aspirin 81 2019-0 Yes 81mg QD Take [address] [facility] chewable 6-21 by mouth [facility] tablet 00:00: daily. [address] aspirin 81 2019-0 Yes 81mg QD Take [address] [facility] chewable 6-21 by mouth [facility] tablet 00:00: daily. [address] aspirin 81 2019-0 Yes 81mg QD Take [address] [facility] chewable 6-21 by mouth [facility] tablet 00:00: daily. [address] aspirin 81 2019-0 Yes 81mg QD Take [address] [facility] chewable 6-21 by mouth [facility] tablet 00:00: daily. [address] aspirin 81 2019-0 Yes 81mg QD Take [address] [facility] chewable 6-21 by mouth [facility] tablet 00:00: daily. [address] aspirin 81 2019-0 Yes 81mg QD Take [address] MG chewable 6-21 by mouth [facility] tablet 00:00: daily. [address] aspirin 81 2019-0 Yes 81mg QD Take [address] [facility] chewable 6-21 by mouth [facility] tablet 00:00: daily. [address] atorvastati 2017-02 Yes 40mg QD Take [address] [facility] (LIPITOR) 1-30 by mouth [facility] 40 MG 00:00: daily. Medical [address] amLODIPine 2017-02 Yes 2.5mg QD Take 2.[address] (NORVASC) 5 1-30 mg by [facility] tablet 00:00: mouth Medical 00 daily . [place] atorvastati 2017-02 Yes 40mg QD Take [address] [facility] (LIPITOR) 1-30 by mouth [facility] 40 MG 00:00: daily. Medical tablet 00 [place] amLODIPine 2017-02 Yes 2.5mg QD Take 2.[address] (NORVASC) 5 1-30 mg by [facility] tablet 00:00: mouth Medical 00 daily . [place] atorvastati 2017-02 Yes 40mg QD Take [address] [facility] (LIPITOR) 1-30 by mouth [facility] 40 MG 00:00: daily. Medical tablet 00 [place] amLODIPine 2017-02 Yes 2.5mg QD Take 2.[address] (NORVASC) 5 1-30 mg by [facility] tablet 00:00: mouth Medical 00 daily . [place] atorvastati 2017-02 Yes 40mg QD Take [address] [facility] (LIPITOR) 1-30 by mouth [facility] 40 MG 00:00: daily. Medical tablet 00 [place] amLODIPine 2017-02 Yes 2.5mg QD Take 2.[address] (NORVASC) 5 1-30 mg by [facility] tablet 00:00: mouth Medical 00 daily . [place] atorvastati 2017-02 Yes 40mg QD Take [address] [facility] (LIPITOR) 1-30 by mouth [facility] 40 MG 00:00: daily. Medical tablet 00 [place] amLODIPine 2017-02 Yes 2.5mg QD Take 2.[address] (NORVASC) 5 1-30 mg by [facility] tablet 00:00: mouth Medical 00 daily . [place] atorvastati 2017-02 Yes 40mg QD Take [address] [facility] (LIPITOR) 1-30 by mouth [facility] 40 MG 00:00: daily. Medical tablet 00 [place] amLODIPine 2017-02 Yes 2.5mg QD Take 2.[address] (NORVASC) 5 1-30 mg by [facility] tablet 00:00: mouth Medical 00 daily . [place] atorvastati 2017-02 Yes 40mg QD Take [address] [facility] (LIPITOR) 1-30 by mouth [facility] 40 MG 00:00: daily. Medical tablet 00 [place] amLODIPine 2017-02 Yes 2.5mg QD Take 2.[address] (NORVASC) 5 1-30 mg by [facility] tablet 00:00: mouth Medical 00 daily . [place] atorvastati 2017-02 Yes 40mg QD Take [address] [facility] (LIPITOR) 1-30 by mouth [facility] 40 MG 00:00: daily. Medical tablet 00 [place] amLODIPine 2017-02 Yes 2.5mg QD Take 2.[address] (NORVASC) 5 1-30 mg by [facility] tablet 00:00: mouth Medical 00 daily . [place] atorvastati 2017-02 Yes 40mg QD Take [address] [facility] (LIPITOR) 1-30 by mouth [facility] 40 MG 00:00: daily. Medical tablet 00 [place] amLODIPine 2017-02 Yes 2.5mg QD Take 2.[address] (NORVASC) 5 1-30 mg by [facility] tablet 00:00: mouth Medical 00 daily . [place] atorvastati 2017-02 Yes 40mg QD Take [address] [facility] (LIPITOR) 1-30 by mouth [facility] 40 MG 00:00: daily. Medical tablet 00 [place] amLODIPine 2017-02 Yes 2.5mg QD Take 2.[address] (NORVASC) 5 1-30 mg by [facility] tablet 00:00: mouth Medical 00 daily . Center Immunizations Ordered Filled Immunization Date Status Comments [facility] e Immunization Name Name Pneumococcal 2022-05-17 Completed Universit y of Conjugate, PCV20 00:00:00 [facility] dical (Prevnar 20) Branch Pneumococcal 20 2022-05-17 Completed Universit y of Conjugate, PCV20 00:00:00 [facility] dical (Prevnar 20) Branch Pneumococcal 20 2022-05-17 Completed Universit y of Conjugate, PCV20 00:00:00 [facility] dical (Prevnar 20) Branch Pneumococcal 20 2022-05-17 Completed Universit y of Conjugate, PCV20 00:00:00 [facility] dical (Prevnar 20) Branch Pneumococcal 20 2022-05-17 Completed Universit y of Conjugate, PCV20 00:00:00 [facility] dical (Prevnar 20) Branch Pneumococcal 20 2022-05-17 Completed Universit y of Conjugate, PCV20 00:00:00 [facility] dical (Prevnar 20) Branch Pneumococcal 20 2022-05-17 Completed Universit y of Conjugate, PCV20 00:00:00 [facility] dical (Prevnar 20) Branch Pneumococcal 20 2022-05-17 Completed Universit y of Conjugate, PCV20 00:00:00 [facility] dical (Prevnar 20) Branch Pneumococcal 20 2022-05-17 [...] Universit y of Conjugate, PCV20 00:00:00 [facility] dical (Prevnar 20) Branch Pneumococcal 20 2022-05-17 Completed Universit y of Conjugate, PCV20 00:00:00 [facility] dical (Prevnar 20) Branch Pneumococcal 20 2022-05-17 Completed Universit y of Conjugate, PCV20 00:00:00 [place] [facility] (Prevnar 20) Branch Pneumococcal 20 2022-05-17 Completed Universit y of Conjugate, PCV20 00:00:00 [facility] dical (Prevnar 20) Branch Pneumococcal 20 2022-05-17 Completed Universit y of Conjugate, PCV20 00:00:00 [place] [facility]ical (Prevnar 20) Branch Pneumococcal 20 2022-05-17 Completed Universit y of Conjugate, PCV20 00:00:00 [facility] dical (Prevnar 20) Branch Pneumococcal 20 2022-05-17 Completed Universit y of Conjugate, PCV20 00:00:00 [place] [facility]ical (Prevnar 20) Branch Pneumococcal 20 2022-05-17 Completed Universit y of Conjugate, PCV20 00:00:00 [facility] dical (Prevnar 20) Branch Pneumococcal 20 2022-05-17 Completed Universit y of Conjugate, PCV20 00:00:00 [facility] dical (Prevnar 20) Branch Influenza Virus 2021-12-24 [...] [place] [facility] 65+ (FLUAD) Influenza Virus 2021-12-24 Completed Universit y of Vaccine,quad 00:00:00 [place] [facility] Free [facility] 65+ (FLUAD) Influenza Virus 2021-12-24 Completed Universit y of Vaccine,quad 00:00:00 [place] [facility] Free [facility] 65+ (FLUAD) Influenza Virus 2021-12-24 Completed Universit y of Vaccine,quad 00:00:00 [place] [facility],preserve Free [facility] 65+ (FLUAD) SARS-COV-2 COVID-19 2021-01-15 Completed Unive rsity of [...] rsity of MODERNA 0.25ML 00:00:00 [place] [facility] BOOSTER VACCINE Branch SARS-COV-2 COVID-19 2021-01-15 Completed [...] rsity of MODERNA 0.25ML 00:00:00 [facility] angelica BOOSTER VACCINE Branch SARS-COV-2 COVID-19 2021-01-15 Completed Unive rsity of MODERNA 0.25ML 00:00:00 [facility] angelica BOOSTER VACCINE Branch Influenza High Dose 2019-11-08 Completed Unive rsity of Quad 00:00:00 [place] [facility] Influenza High Dose 2019-11-08 Completed Unive rsity of Quad 00:00:00 [place] [facility] Influenza High Dose 2019-11-08 Completed Unive rsity of Quad 00:00:00 [place] [facility] Influenza High Dose 2019-11-08 Completed Unive rsity of Quad 00:00:00 [facility] Branch Influenza High Dose 2019-11-08 Completed Unive rsity of Quad 00:00:00 [facility] Influenza High Dose 2019-11-08 Completed Unive rsity of Quad 00:00:00 [facility] Branch Influenza High Dose 2019-11-08 Completed Unive rsity of Quad 00:00:00 [place] [facility] Influenza High Dose 2019-11-08 Completed Unive rsity of Quad 00:00:00 [facility] Branch Influenza High Dose 2019-11-08 Completed Unive rsity of Quad 00:00:00 [place] [facility] Influenza High Dose 2019-11-08 Completed Unive rsity of Quad 00:00:00 [facility] Branch Influenza High Dose 2019-11-08 Completed Unive rsity of Quad 00:00:00 [facility] Influenza High Dose 2019-11-08 Completed Unive rsity of Quad 00:00:00 [place] [facility] Influenza High Dose 2019-11-08 Completed Unive rsity of Quad 00:00:00 [facility] Influenza High Dose 2019-11-08 Completed Unive rsity of Quad 00:00:00 [facility] Branch Influenza High Dose 2019-11-08 Completed Unive rsity of Quad 00:00:00 [place] [facility] Influenza High Dose 2019-11-08 Completed Unive rsity of Quad 00:00:00 [facility] Influenza High Dose 2019-11-08 Completed Unive rsity of Quad 00:00:00 [facility] Influenza High Dose 2019-11-08 Completed Unive rsity of Quad 00:00:00 [facility] Influenza High Dose 2019-11-08 Completed Unive rsity of Quad 00:00:00 [facility] Influenza High Dose 2019-11-08 Completed Unive rsity of 00:00:00 [facility] Influenza High Dose 2019-11-08 Completed Unive rsity of Quad 00:00:00 [facility] Influenza High Dose 2019-11-08 Completed Unive rsity of 00:00:00 [facility] Influenza High Dose 2019-11-08 Completed Unive rsity of Quad 00:00:00 [facility] Influenza High Dose 2019-11-08 Completed Unive rsity of 00:00:00 [facility] Influenza High Dose 2019-11-08 Completed Unive rsity of Quad 00:00:00 [facility] Influenza High Dose 2019-11-08 Completed Unive rsity of 00:00:00 [facility] Influenza High Dose 2019-11-08 Completed Unive rsity of Quad 00:00:00 [facility] Influenza High Dose 2019-11-08 Completed Unive rsity of 00:00:00 [facility] Influenza High Dose 2019-11-08 Completed Unive rsity of Quad 00:00:00 [facility] Influenza High Dose 2019-11-08 Completed Unive rsity of 00:00:00 [facility] Influenza High Dose 2019-11-08 Completed Unive rsity of Quad 00:00:00 [facility] Influenza High Dose 2019-11-08 Completed Unive rsity of 00:00:00 [facility] Influenza High Dose 2019-11-08 Completed Unive rsity of Quad 00:00:00 [facility] Influenza High Dose 2019-11-08 Completed Unive rsity of 00:00:00 [facility] Influenza High Dose 2019-11-08 Completed Unive rsity of Quad 00:00:00 [facility] Influenza High Dose 2019-11-08 Completed Unive rsity of 00:00:00 [facility] Influenza High Dose 2019-11-08 Completed Unive rsity of Quad 00:00:00 [facility] Influenza High Dose 2019-11-08 Completed Unive rsity of 00:00:00 [facility] Influenza High Dose 2019-11-08 Completed Unive rsity of Quad 00:00:00 [facility] Influenza High Dose 2019-11-08 Completed Unive rsity of 00:00:00 [facility] Influenza High Dose 2019-11-08 Completed Unive rsity of Quad 00:00:00 [facility] Influenza High Dose 2019-11-08 Completed Unive rsity of 00:00:00 [facility] Influenza High Dose 2019-11-08 Completed Unive rsity of Quad 00:00:00 [facility] Influenza High Dose 2019-11-08 Completed Unive rsity of 00:00:00 [facility] Influenza High Dose 2019-11-08 Completed Unive rsity of Quad 00:00:00 [facility] Influenza High Dose 2019-11-08 Completed Unive rsity of 00:00:00 [facility] Influenza High Dose 2019-11-08 Completed Unive rsity of Quad 00:00:00 [facility] Influenza High Dose 2019-11-08 Completed Unive rsity of 00:00:00 [facility] Influenza High Dose 2019-11-08 Completed Unive rsity of Quad 00:00:00 [facility] Influenza High Dose 2019-11-08 Completed Unive rsity of 00:00:00 [facility] Influenza High Dose 2019-11-08 Completed Unive rsity of Quad 00:00:00 [facility] Influenza High Dose 2019-11-08 Completed Unive rsity of 00:00:00 [facility] Influenza High Dose 2019-11-08 Completed Unive rsity of Quad 00:00:00 [facility] Influenza High Dose 2019-11-08 Completed Unive rsity of 00:00:00 [facility] Influenza High Dose 2019-11-08 Completed Unive rsity of Quad 00:00:00 [facility] Influenza High Dose 2019-11-08 Completed Unive rsity of 00:00:00 [facility] Influenza High Dose 2019-11-08 Completed Unive rsity of Quad 00:00:00 [facility] Influenza High Dose 2019-11-08 Completed Unive rsity of 00:00:00 [facility] Influenza High Dose 2019-11-08 Completed Unive rsity of Quad 00:00:00 [facility] Influenza High Dose 2019-11-08 Completed Unive rsity of 00:00:00 [facility] Influenza High Dose 2019-11-08 Completed Unive rsity of Quad 00:00:00 [facility] Influenza High Dose 2019-11-08 Completed Unive rsity of 00:00:00 [facility] Influenza High Dose 2019-11-08 Completed Unive rsity of Quad 00:00:00 [facility] Influenza High Dose 2019-11-08 Completed Unive rsity of 00:00:00 [facility] Influenza High Dose 2019-11-08 Completed Unive rsity of Quad 00:00:00 [facility] Influenza High Dose 2019-11-08 Completed Unive rsity of 00:00:00 [facility] Influenza High Dose 2019-11-08 Completed Unive rsity of Quad 00:00:00 [facility] Influenza High Dose 2019-11-08 Completed Unive rsity of 00:00:00 [facility] Influenza High Dose 2019-11-08 Completed Unive rsity of Quad 00:00:00 [facility] Influenza High Dose 2019-11-08 Completed Unive rsity of 00:00:00 [facility] Influenza High Dose 2019-11-08 Completed Unive rsity of Quad 00:00:00 [facility] Influenza High Dose 2019-11-08 Completed Unive rsity of 00:00:00 [facility] Influenza High Dose 2019-11-08 Completed Unive rsity of Quad 00:00:00 [facility] Influenza High Dose 2019-11-08 Completed Unive rsity of 00:00:00 [facility] Influenza High Dose 2019-11-08 Completed Unive rsity of Quad 00:00:00 [facility] Influenza High Dose 2019-11-08 Completed Unive rsity of 00:00:00 [facility] Influenza High Dose 2019-11-08 Completed Unive rsity of Quad 00:00:00 [facility] Influenza High Dose 2019-11-08 Completed Unive rsity of 00:00:00 [facility] Influenza High Dose 2019-11-08 Completed Unive rsity of Quad 00:00:00 [facility] Influenza High Dose 2019-11-08 Completed Unive rsity of 00:00:00 [facility] Influenza High Dose 2019-11-08 Completed Unive rsity of Quad 00:00:00 [facility] Influenza High Dose 2019-11-08 Completed Unive rsity of 00:00:00 [facility] Influenza High Dose 2019-11-08 Completed Unive rsity of Quad 00:00:00 [facility] Influenza High Dose 2019-11-08 Completed Unive rsity of 00:00:00 [facility] Influenza High Dose 2019-11-08 Completed Unive rsity of Quad 00:00:00 [facility] Influenza High Dose 2019-11-08 Completed Unive rsity of 00:00:00 [facility] Influenza High Dose 2019-11-08 Completed Unive rsity of Quad 00:00:00 [facility] Influenza High Dose 2019-11-08 Completed [facility]ity [facility] 00:00:00 [facility] [facility] High Dose 2019-11-08 Completed [facility]00 [facility] Influenza High Dose 2019-11-08 Completed [facility] 00[facility]00:00 [facility] Influenza High Dose 2019-11-08 Completed [facility] 00[facility]00:00 [facility] Influenza High Dose 2019-11-08 Completed [facility] 00:00:00 [facility] Influenza High Dose 2019-11-08 Completed [facility] 00[facility]00:00 [facility] Influenza High Dose 2019-11-08 Completed [facility] 00:00:00 [facility] Influenza High Dose 2019-11-08 Completed [facility] 00[facility]00:00 [facility] Influenza High Dose 2019-11-08 Completed [facility] 00:00:00 [facility] Influenza High Dose 2019-11-08 Completed [facility] 00[facility]00:00 [facility] Influenza High Dose 2019-11-08 Completed [facility] 00:00:00 [facility] Influenza High Dose 2019-11-08 Completed [facility] 00:00:00 [facility] Influenza High Dose 2019-11-08 Completed [facility] 00:00:00 [facility] Influenza High Dose 2019-11-08 Completed [facility] 00:00:00 [facility] Influenza High Dose 2019-11-08 Completed [facility] 00:00:00 [facility] Influenza High Dose 2019-11-08 Completed [facility] 00:00:00 [facility] Influenza High Dose 2019-11-08 Completed [facility] 00:00:00 [facility] Influenza High Dose 2019-11-08 Completed [facility] 00[facility]00:00 [facility] Influenza High Dose 2019-11-08 Completed [facility] 00:00:00 [facility] Influenza High Dose 2019-11-08 Completed [facility] 00[facility]00:00 [facility] Influenza High Dose 2019-11-08 Completed [facility] 00:00:00 [facility] Influenza High Dose 2019-11-08 Completed [facility] 00:00:00 [facility] Influenza High Dose 2019-11-08 Completed [facility] 00:00:00 [facility] Influenza High Dose 2019-11-08 Completed [facility] 00:00:00 [facility] Influenza High Dose 2019-11-08 Completed [facility] 00:00:00 [facility] Influenza High Dose 2019-11-08 Completed [facility] 00[facility]00:00 [facility] Influenza High Dose 2019-11-08 Completed [facility] 00:00:00 [facility] Influenza High Dose 2019-11-08 Completed [facility] 00:00:00 [facility] Influenza High Dose 2019-11-08 Completed [facility] 00:00:00 [facility] Influenza High Dose 2019-11-08 Completed [facility] 00:00:00 [facility] Influenza High Dose 2019-11-08 Completed [facility] 00:00:00 [facility] Influenza High Dose 2019-11-08 Completed [facility] 00:00:00 [facility] Influenza High Dose 2019-11-08 Completed [facility] 00:00:00 [facility] Influenza High Dose 2019-11-08 Completed [facility] 00:00:00 [facility] Influenza High Dose 2019-11-08 Completed [facility] 00:00:00 [facility] Influenza High Dose 2019-11-08 Completed [facility] 00:00:00 [facility] Influenza High Dose 2019-11-08 Completed [facility] 00:00:00 [facility] Influenza High Dose 2019-11-08 Completed [facility] 00:00:00 [facility] Influenza High Dose 2019-11-08 Completed [facility] 00:00:00 [facility] Influenza High Dose 2019-11-08 Completed [facility] 00:00:00 [facility] Influenza High Dose 2019-11-08 Completed [facility] 00:00:00 [facility] Influenza High Dose 2019-11-08 Completed [facility] 00:00:00 [facility] Influenza High Dose 2019-11-08 Completed [facility] 00:00:00 [facility] Influenza High Dose 2019-11-08 Completed [facility] 00:00:00 [facility] Influenza High Dose 2019-11-08 Completed [facility] 00:00:00 [facility] Influenza High Dose 2019-11-08 Completed [facility] 00:00:00 [facility] Influenza High Dose 2019-11-08 Completed [facility] 00:00:00 [facility] Influenza High Dose 2019-11-08 Completed [facility] 00:00:00 [facility] Influenza High Dose 2019-11-08 Completed [facility] 00:00:00 [facility] Influenza High Dose 2019-11-08 Completed [facility] 00:00:00 [facility] Influenza High Dose 2019-11-08 Completed [facility] 00:00:00 [facility] Influenza High Dose 2019-11-08 Completed [facility] 00:00:00 [facility] Influenza High Dose 2019-11-08 Completed [facility] 00:00:00 [facility] Influenza High Dose 2019-11-08 Completed [facility] 00:00:00 [facility] Influenza High Dose 2019-11-08 Completed [facility] 00:00:00 [facility] Influenza High Dose 2019-11-08 Completed [facility] 00:00:00 [facility] Influenza High Dose 2019-11-08 Completed [facility] 00:00:00 [facility] Influenza High Dose 2019-11-08 Completed [facility] 00:00:00 [facility] Influenza High Dose 2019-11-08 Completed [facility] 00:00:00 [facility] Influenza High Dose 2019-11-08 Completed [facility] 00:00:00 [facility] Influenza High Dose 2019-11-08 Completed [facility] 00:00:00 [facility] [place] Influenza High Dose 2019-11-08 Completed [facility] 00:00:00 [facility] Influenza High Dose 2019-11-08 Completed [facility] 00:00:00 [facility] [place] Influenza High Dose 2019-11-08 Completed [facility] 00:00:00 [facility] Influenza High Dose 2019-11-08 Completed [facility] 00:00:00 [facility] Influenza High Dose 2019-11-08 Completed [facility] 00:00:00 [facility] Influenza High Dose 2019-11-08 Completed [facility] 00:00:00 [facility] [place] Influenza High Dose 2019-11-08 Completed [facility] 00:00:00 [facility] Influenza High Dose 2019-11-08 Completed [facility] 00:00:00 [facility] Influenza High Dose 2019-11-08 Completed [facility] 00:00:00 [facility] Influenza High Dose 2019-11-08 Completed [facility] 00:00:00 [facility] Influenza High Dose 2019-11-08 Completed [facility] 00:00:00 [facility] Influenza High Dose 2019-11-08 Completed [facility] 00:00:00 [facility] Influenza High Dose 2019-11-08 Completed [facility] 00:00:00 [facility] Influenza High Dose 2019-11-08 Completed [facility] 00:00:00 [facility] Influenza High Dose 2019-11-08 Completed [facility] 00:00:00 [facility] Influenza High Dose 2019-11-08 Completed [facility] 00:00:00 [facility] Influenza High Dose 2019-11-08 Completed [facility] 00:00:00 [facility] Influenza High Dose 2019-11-08 Completed [facility] 00:00:00 [facility] Influenza High Dose 2019-11-08 Completed [facility] 00:00:00 [facility] Influenza High Dose 2019-11-08 Completed [facility] 00:00:00 [facility] Influenza High Dose 2019-11-08 Completed [facility] 00:00:00 [facility] Influenza High Dose 2019-11-08 Completed [facility] 00:00:00 [facility] Influenza High Dose 2019-11-08 Completed [facility] 00:00:00 [facility] Influenza High Dose 2019-11-08 Completed [facility] 00:00:00 [facility] Influenza High Dose 2019-11-08 Completed [facility] 00:00:00 [facility] Influenza High Dose 2019-11-08 Completed [facility] 00:00:00 [facility] Influenza High Dose 2019-11-08 Completed [facility] 00:00:00 [facility] Influenza High Dose 2019-11-08 Completed [facility] 00:00:00 [facility] Influenza High Dose 2019-11-08 Completed [facility] 00:00:00 [facility] Influenza High Dose 2019-11-08 Completed [facility] 00:00:00 [facility] Influenza High Dose 2019-11-08 Completed [facility] 00:00:00 [facility] Influenza High Dose 2019-11-08 Completed [facility] 00:00:00 [facility] Influenza High Dose 2019-11-08 Completed [facility] 00:00:00 [facility] Influenza High Dose 2019-11-08 Completed [facility] 00:00:00 [facility] Influenza High Dose 2019-11-08 Completed [facility] 00:00:00 [facility] Influenza High Dose 2019-11-08 Completed [facility] 00:00:00 [facility] Influenza High Dose 2019-11-08 Completed [facility] 00:00:00 [facility] Influenza High Dose 2019-11-08 Completed [facility] 00:00:00 [facility] Influenza High Dose 2019-11-08 Completed [facility] 00:00:00 [facility] Influenza High Dose 2019-11-08 Completed [facility] 00:00:00 [facility] Influenza High Dose 2019-11-08 Completed [facility] 00:00:00 [facility] Influenza High Dose 2019-11-08 Completed [facility] 00:00:00 [facility] Influenza High Dose 2019-11-08 Completed [facility] 00:00:00 [facility] Influenza High Dose 2019-11-08 Completed [facility] 00:00:00 [facility] Influenza High Dose 2019-11-08 Completed [facility] 00:00:00 [facility] Influenza High Dose 2019-11-08 Completed [facility] 00:00:00 [facility] Influenza High Dose 2019-11-08 Completed [facility] 00:00:00 [facility] Influenza High Dose 2019-11-08 Completed [facility] 00:00:00 [facility] Influenza High Dose 2019-11-08 Completed [facility] 00:00:00 [facility] Influenza High Dose 2019-11-08 Completed [facility] 00:00:00 [facility] Influenza High Dose 2019-11-08 Completed [facility] 00:00:00 [facility] Influenza High Dose 2019-11-08 Completed [facility] 00:00:00 [facility] Influenza High Dose 2019-11-08 Completed [facility] 00:00:00 [facility] Influenza High Dose 2019-11-08 Completed [facility] 00:00:00 [facility] Influenza High Dose 2019-11-08 Completed [facility] 00:00:00 [facility] Influenza High Dose 2019-11-08 Completed [facility] 00:00:00 [facility] Influenza High Dose 2019-11-08 Completed [facility] 00:00:00 [facility] Influenza High Dose 2019-11-08 Completed [facility] 00:00:00 [facility] Influenza High Dose 2019-11-08 Completed [facility] 00:00:00 [facility] Influenza High Dose 2019-11-08 Completed [facility] 00:00:00 [facility] Influenza High Dose 2019-11-08 Completed [facility] 00:00:00 [facility] Influenza High Dose 2019-11-08 Completed [facility] 00:00:00 [facility] Influenza High Dose 2019-11-08 Completed [facility] 00:00:00 [facility] Influenza High Dose 2019-11-08 Completed [facility] 00:00:00 [facility] Influenza High Dose 2019-11-08 Completed [facility] 00:00:00 [facility] Influenza High Dose 2019-11-08 Completed [facility] 00:00:00 [facility] Influenza High Dose 2019-11-08 Completed [facility] 00:00:00 [facility] Influenza High Dose 2019-11-08 Completed [facility] 00:00:00 [facility] Influenza High Dose 2019-02-13 Completed [facility] 00:00:00 [facility] Influenza High Dose 2019-02-13 Completed [facility] 00:00:00 [facility] Influenza High Dose 2019-02-13 Completed [facility] 00:00:00 [facility] Influenza High Dose 2019-02-13 Completed [facility] 00:00:00 [facility] Influenza High Dose 2019-02-13 Completed [facility] 00:00:00 [facility] Influenza High Dose 2019-02-13 Completed [facility] 00:00:00 [facility] Influenza High Dose 2019-02-13 Completed [facility] 00:00:00 [facility] Influenza High Dose 2019-02-13 Completed [facility] 00:00:00 [facility] Influenza High Dose 2019-02-13 Completed [facility] 00:00:00 [facility] Influenza High Dose 2019-02-13 Completed [facility] 00:00:00 [facility] Influenza High Dose 2019-02-13 Completed [facility] 00:00:00 [facility] Influenza High Dose 2019-02-13 Completed [facility] 00:00:00 [facility] Influenza High Dose 2019-02-13 Completed [facility] 00:00:00 [facility] Influenza High Dose 2019-02-13 Completed [facility] 00:00:00 [facility] Influenza High Dose 2019-02-13 Completed [facility] 00:00:00 [facility] Influenza High Dose 2019-02-13 Completed [facility] 00:00:00 [facility] Influenza High Dose 2019-02-13 Completed [facility] 00:00:00 [facility] Influenza High Dose 2019-02-13 Completed [facility] 00:00:00 [facility] Influenza High Dose 2019-02-13 Completed [facility] 00:00:00 [facility] Influenza High Dose 2019-02-13 Completed [facility] 00:00:00 [facility] Influenza High Dose 2019-02-13 Completed [facility] 00:00:00 [facility] Influenza High Dose 2019-02-13 Completed [facility] 00:00:00 [facility] Influenza High Dose 2019-02-13 Completed [facility] 00:00:00 [facility] Influenza High Dose 2019-02-13 Completed [facility] 00:00:00 [facility] Influenza High Dose 2019-02-13 Completed [facility] 00:00:00 [facility] Influenza High Dose 2019-02-13 Completed [facility] 00:00:00 [facility] Influenza High Dose 2019-02-13 Completed [facility] 00:00:00 [facility] Influenza High Dose 2019-02-13 Completed [facility] 00:00:00 [facility] Influenza High Dose 2019-02-13 Completed [facility] 00:00:00 [facility] Influenza High Dose 2019-02-13 Completed [facility] 00:00:00 [facility] Influenza High Dose 2019-02-13 Completed [facility] 00:00:00 [facility] Influenza High Dose 2019-02-13 Completed [facility] 00:00:00 [facility] Influenza High Dose 2019-02-13 Completed [facility] 00:00:00 [facility] Influenza High Dose 2019-02-13 Completed [facility] 00:00:00 [facility] Influenza High Dose 2019-02-13 Completed [facility] 00:00:00 [facility] Influenza High Dose 2019-02-13 Completed [facility] 00:00:00 [facility] Influenza High Dose 2019-02-13 Completed [facility] 00:00:00 [facility] Influenza High Dose 2019-02-13 Completed [facility] 00:00:00 [facility] Influenza High Dose 2019-02-13 Completed [facility] 00:00:00 [facility] Influenza High Dose 2019-02-13 Completed [facility] 00:00:00 [facility] Influenza High Dose 2019-02-13 Completed [facility] 00:00:00 [facility] Influenza High Dose 2019-02-13 Completed [facility] 00:00:00 [facility] Influenza High Dose 2019-02-13 Completed [facility] 00:00:00 [facility] Influenza High Dose 2019-02-13 Completed [facility] 00:00:00 [facility] Influenza High Dose 2019-02-13 Completed [facility] 00:00:00 [facility] Influenza High Dose 2019-02-13 Completed [facility] 00:00:00 [facility] Influenza High Dose 2019-02-13 Completed [facility] 00:00:00 [facility] Influenza High Dose 2019-02-13 Completed [facility] 00:00:00 [facility] Influenza High Dose 2019-02-13 Completed [facility] 00:00:00 [facility] Influenza High Dose 2019-02-13 Completed [facility] 00:00:00 [facility] Influenza High Dose 2019-02-13 Completed [facility] 00:00:00 [facility] Influenza High Dose 2019-02-13 Completed [facility] 00:00:00 [facility] Influenza High Dose 2019-02-13 Completed [facility] 00:00:00 [facility] Influenza High Dose 2019-02-13 Completed [facility] 00:00:00 [facility] Influenza High Dose 2019-02-13 Completed [facility] 00:00:00 [facility] Influenza High Dose 2019-02-13 Completed [facility] 00:00:00 [facility] Influenza High Dose 2019-02-13 Completed [facility] 00:00:00 [facility] Influenza High Dose 2019-02-13 Completed [facility] 00:00:00 [facility] Influenza High Dose 2019-02-13 Completed [facility] 00:00:00 [facility] Influenza High Dose 2019-02-13 Completed [facility] 00:00:00 [facility] Influenza High Dose 2019-02-13 Completed [facility] 00:00:00 [facility] Influenza High Dose 2019-02-13 Completed [facility] 00:00:00 [facility] Influenza High Dose 2019-02-13 Completed [facility] 00:00:00 [facility] Influenza High Dose 2019-02-13 Completed [facility] 00:00:00 [facility] Influenza High Dose 2019-02-13 Completed [facility] 00:00:00 [facility] Influenza High Dose 2019-02-13 Completed [facility] 00:00:00 [facility] Influenza High Dose 2019-02-13 Completed [facility] 00:00:00 [facility] Influenza High Dose 2019-02-13 Completed [facility] 00:00:00 [facility] Influenza High Dose 2019-02-13 Completed [facility] 00:00:00 [facility] Influenza High Dose 2019-02-13 Completed [facility] 00:00:00 [facility] Influenza High Dose 2019-02-13 Completed [facility] 00:00:00 [facility] Influenza High Dose 2019-02-13 Completed [facility] 00:00:00 [facility] Influenza High Dose 2019-02-13 Completed [facility] 00:00:00 [facility] Influenza High Dose 2019-02-13 Completed [facility] 00:00:00 [facility] Influenza High Dose 2019-02-13 Completed [facility] 00:00:00 [facility] Influenza High Dose 2019-02-13 Completed [facility] 00:00:00 [facility] Influenza High Dose 2019-02-13 Completed [facility] 00:00:00 [facility] Influenza High Dose 2019-02-13 Completed [facility] 00:00:00 [facility] Influenza High Dose 2019-02-13 Completed [facility] 00:00:00 [facility] Influenza High Dose 2019-02-13 Completed [facility] 00:00:00 [facility] Influenza High Dose 2019-02-13 Completed [facility] 00:00:00 [facility] Influenza High Dose 2019-02-13 Completed [facility] 00:00:00 [facility] Influenza High Dose 2019-02-13 Completed [facility] 00:00:00 [facility] Influenza High Dose 2019-02-13 Completed [facility] 00:00:00 [facility] Influenza High Dose 2019-02-13 Completed [facility] 00:00:00 [facility] Influenza High Dose 2019-02-13 Completed [facility] 00:00:00 [facility] Influenza High Dose 2019-02-13 Completed [facility] 00:00:00 [facility] Influenza High Dose 2019-02-13 Completed [facility] 00:00:00 [facility] Influenza High Dose 2019-02-13 Completed [facility] 00:00:00 [facility] Influenza High Dose 2019-02-13 Completed [facility] 00:00:00 [facility] Influenza High Dose 2019-02-13 Completed [facility] 00:00:00 [facility] Influenza High Dose 2019-02-13 Completed [facility] 00:00:00 [facility] Influenza High Dose 2019-02-13 Completed [facility] 00:00:00 [facility] Influenza High Dose 2019-02-13 Completed [facility] 00:00:00 [facility] Influenza High Dose 2019-02-13 Completed [facility] 00:00:00 [facility] Influenza High Dose 2019-02-13 Completed [facility] 00:00:00 [facility] Influenza High Dose 2019-02-13 Completed [facility] 00:00:00 [facility] Influenza High Dose 2019-02-13 Completed [facility] 00:00:00 [facility] Influenza High Dose 2019-02-13 Completed [facility] 00:00:00 [facility] Influenza High Dose 2019-02-13 Completed [facility] 00:00:00 [facility] Influenza High Dose 2019-02-13 Completed [facility] 00:00:00 [facility] Influenza High Dose 2019-02-13 Completed [facility] 00:00:00 [facility] Influenza High Dose 2019-02-13 Completed [facility] 00:00:00 [facility] Influenza High Dose 2019-02-13 Completed [facility] 00:00:00 [facility] Influenza High Dose 2019-02-13 Completed [facility] 00:00:00 [facility] Influenza High Dose 2019-02-13 Completed [facility] 00:00:00 [facility] Influenza High Dose 2019-02-13 Completed [facility] 00:00:00 [facility] Influenza High Dose 2019-02-13 Completed [facility] 00:00:00 [facility] Influenza High Dose 2019-02-13 Completed [facility] 00:00:00 [facility] Influenza High Dose 2019-02-13 Completed [facility] 00:00:00 [facility] Influenza High Dose 2019-02-13 Completed [facility] 00:00:00 [facility] Influenza High Dose 2019-02-13 Completed [facility] 00:00:00 [facility] Influenza High Dose 2019-02-13 Completed [facility] 00:00:00 [facility] Influenza High Dose 2019-02-13 Completed [facility] 00:00:00 [facility] Influenza High Dose 2019-02-13 Completed [facility] 00:00:00 [facility] Influenza High Dose 2019-02-13 Completed [facility] [place] Influenza High Dose 2019-02-13 Completed [facility] of 00:00:00 [facility] TDAP 2017-11-10 Completed University of 00:00:00 [facility] TDAP 2017-11-10 Completed University [facility] 00:00:00 [facility] TDAP 2017-11-10 Completed University of 00:00:00 [facility] TDAP 2017-11-10 Completed University of 00:00:00 [facility] TDAP 2017-11-10 Completed University of 00:00:00 [facility] TDAP 2017-11-10 Completed University of 00:00:00 [facility] TDAP 2017-11-10 Completed University of 00:00:00 [facility] TDAP 2017-11-10 Completed University of 00:00:00 [facility] TDAP 2017-11-10 Completed University of 00:00:00 [facility] TDAP 2017-11-10 Completed University of 00:00:00 [facility] TDAP 2017-11-10 Completed University of 00:00:00 [facility] TDAP 2017-11-10 Completed University of 00:00:00 [facility] TDAP 2017-11-10 Completed University of 00:00:00 [facility] TDAP 2017-11-10 Completed University of 00:00:00 [facility] TDAP 2017-11-10 Completed University of 00:00:00 [facility] TDAP 2017-11-10 Completed University of 00:00:00 [facility] TDAP 2017-11-10 Completed [facility] of 00:00:00 [facility] TDAP 2017-11-10 Completed University of 00:00:00 [facility] TDAP 2017-11-10 Completed [facility] of 00:00:00 [facility] TDAP 2017-11-10 Completed University of 00:00:00 [facility] TDAP 2017-11-10 Completed [facility] of 00:00:00 [facility] TDAP 2017-11-10 Completed [facility] of 00:00:00 [facility] TDAP 2017-11-10 Completed [facility] of 00:00:00 [facility] TDAP 2017-11-10 Completed [facility] of 00:00:00 [facility] TDAP 2017-11-10 Completed [facility] of 00:00:00 [facility] TDAP 2017-11-10 Completed [facility] of 00:00:00 [facility] TDAP 2017-11-10 Completed [facility] 00:00:00 [facility] TDAP 2017-11-10 Completed [facility] 00:00:00 [facility] TDAP 2017-11-10 Completed [facility] 00:00:00 [facility] TDAP 2017-11-10 Completed [facility] 00:00:00 [facility] TDAP 2017-11-10 Completed [facility] 00:00:00 [facility] TDAP 2017-11-10 Completed [facility] 00:00:00 [facility] TDAP 2017-11-10 Completed [facility] 00:00:00 [facility] TDAP 2017-11-10 Completed [facility] 00:00:00 [facility] TDAP 2017-11-10 Completed [facility] 00:00:00 [facility] TDAP 2017-11-10 Completed [facility] 00:00:00 [facility] TDAP 2017-11-10 Completed [facility] 00:00:00 [facility] TDAP 2017-11-10 Completed [facility] 00:00:00 [facility] TDAP 2017-11-10 Completed [facility] 00:00:00 [facility] TDAP 2017-11-10 Completed [facility] 00:00:00 [facility] TDAP 2017-11-10 Completed [facility] 00:00:00 [facility] TDAP 2017-11-10 Completed [facility] 00:00:00 [facility] TDAP 2017-11-10 Completed [facility] 00:00:00 [facility] TDAP 2017-11-10 Completed [facility] 00:00:00 [facility] TDAP 2017-11-10 Completed [facility] 00:00:00 [facility] TDAP 2017-11-10 Completed [facility] 00:00:00 [facility] TDAP 2017-11-10 Completed [facility] 00:00:00 [facility] TDAP 2017-11-10 Completed [facility] 00:00:00 [facility] TDAP 2017-11-10 Completed [facility] 00:00:00 [facility] TDAP 2017-11-10 Completed [facility] 00:00:00 [facility] TDAP 2017-11-10 Completed [facility] 00:00:00 [facility] TDAP 2017-11-10 Completed [facility] 00:00:00 [facility] TDAP 2017-11-10 Completed [facility] 00:00:00 [facility] TDAP 2017-11-10 Completed [facility] 00:00:00 [facility] TDAP 2017-11-10 Completed [facility] 00:00:00 [facility] TDAP 2017-11-10 Completed [facility] 00:00:00 [facility] TDAP 2017-11-10 Completed [facility] 00:00:00 [facility] TDAP 2017-11-10 Completed [facility] 00:00:00 [facility] TDAP 2017-11-10 Completed [facility] 00:00:00 [facility] TDAP 2017-11-10 Completed [facility] 00:00:00 [facility] TDAP 2017-11-10 Completed [facility] 00:00:00 [facility] TDAP 2017-11-10 Completed [facility] 00:00:00 [facility] TDAP 2017-11-10 Completed [facility] 00:00:00 [facility] TDAP 2017-11-10 Completed [facility] 00:00:00 [facility] TDAP 2017-11-10 Completed [facility] 00:00:00 [facility] TDAP 2017-11-10 Completed [facility] 00:00:00 [facility] TDAP 2017-11-10 Completed [facility] 00:00:00 [facility] TDAP 2017-11-10 Completed [facility] 00:00:00 [facility] TDAP 2017-11-10 Completed [facility] 00:00:00 [facility] TDAP 2017-11-10 Completed [facility] 00:00:00 [facility] TDAP 2017-11-10 Completed [facility] 00:00:00 [facility] TDAP 2017-11-10 Completed [facility] 00:00:00 [facility] TDAP 2017-11-10 Completed [facility] 00:00:00 [facility] TDAP 2017-11-10 Completed [facility] 00:00:00 [facility] TDAP 2017-11-10 Completed [facility] 00:00:00 [facility] TDAP 2017-11-10 Completed [facility] 00:00:00 [facility] TDAP 2017-11-10 Completed [facility] 00:00:00 [facility] TDAP 2017-11-10 Completed [facility] 00:00:00 [facility] TDAP 2017-11-10 Completed [facility] 00:00:00 [facility] TDAP 2017-11-10 Completed [facility] 00:00:00 [facility] TDAP 2017-11-10 Completed [facility] 00:00:00 [facility] TDAP 2017-11-10 Completed [facility] 00:00:00 [facility] TDAP 2017-11-10 Completed [facility] 00:00:00 [facility] TDAP 2017-11-10 Completed [facility] 00:00:00 [facility] TDAP 2017-11-10 Completed [facility] 00:00:00 [facility] TDAP 2017-11-10 Completed [facility] 00:00:00 [facility] TDAP 2017-11-10 Completed [facility] 00:00:00 [facility] TDAP 2017-11-10 Completed [facility] 00:00:00 [facility] TDAP 2017-11-10 Completed [facility] 00:00:00 [facility] TDAP 2017-11-10 Completed [facility] 00:00:00 [facility] TDAP 2017-11-10 Completed [facility] 00:00:00 [facility] TDAP 2017-11-10 Completed [facility] 00:00:00 [facility] TDAP 2017-11-10 Completed [facility] 00:00:00 [facility] TDAP 2017-11-10 Completed [facility] 00:00:00 [facility] TDAP 2017-11-10 Completed [facility] 00:00:00 [facility] TDAP 2017-11-10 Completed [facility] 00:00:00 [facility] TDAP 2017-11-10 Completed [facility] 00:00:00 [facility] TDAP 2017-11-10 Completed [facility] 00:00:00 [facility] TDAP 2017-11-10 Completed [facility] 00:00:00 [facility] TDAP 2017-11-10 Completed [facility] of 00:00:00 [facility] TDAP 2017-11-10 Completed University of 00:00:00 [facility] TDAP 2017-11-10 Completed [facility] 00:00:00 [facility] TDAP 2017-11-10 Completed [facility] 00:00:00 [facility] TDAP 2017-11-10 Completed [facility] 00:00:00 [facility] TDAP 2017-11-10 Completed [facility] 00:00:00 [facility] TDAP 2017-11-10 Completed [facility] 00:00:00 [facility] TDAP 2017-11-10 Completed [facility] 00:00:00 [facility] TDAP 2017-11-10 Completed [facility] of 00:00:00 [facility] TDAP 2017-11-10 Completed [facility] 00:00:00 [facility] TDAP 2017-11-10 Completed [facility] of 00:00:00 [facility] TDAP 2017-11-10 Completed University of 00:00:00 [facility] [place] TDAP 2017-11-10 Completed University of 00:00:00 [facility] [place] TDAP 2017-11-10 Completed University of 00:00:00 [facility] [place] TDAP 2017-11-10 Completed University of 00:00:00 [facility] TDAP 2017-11-10 Completed University of 00:00:00 [facility] [place] TDAP 2017-11-10 Completed University of 00:00:00 [facility] [place] TDAP 2017-11-10 Completed University of 00:00:00 [facility] [place] Pneumococcal 2017-06-09 Completed University o f Polysaccharide, [...] 00:00:00 [place] [facility] PPSV23 (PNEUMOVAX) [facility] Influenza High Dose 2016-11-14 Completed Unive rsity of 00:00:00 [facility] [place] Influenza High Dose 2016-11-14 Completed [facility]ive rsity of 00:00:00 [facility] [place] Influenza High Dose 2016-11-14 Completed [facility]ive rsity of 00:00:00 [facility] [place] Influenza High Dose 2016-11-14 Completed [facility]ive rsity of 00:00:00 [facility] [place] Influenza High Dose 2016-11-14 Completed [facility]ive [facility] of 00:00:00 [facility] [place] Influenza High Dose 2016-11-14 Completed [facility] of 00:00:00 [facility] [place] Influenza High Dose 2016-11-14 Completed [facility]ive [facility] of 00:00:00 [facility] [place] Influenza High Dose 2016-11-14 Completed [facility]ive rs[facility] of 00:00:00 [facility] [place] Influenza High Dose 2016-11-14 Completed [facility]ive rsity of 00:00:00 [facility] [place] Influenza High Dose 2016-11-14 Completed [facility]ive rs[facility] of 00:00:00 [facility] [place] Influenza High Dose 2016-11-14 Completed [facility]ive rs[facility] of 00:00:00 [facility] [place] Influenza High Dose 2016-11-14 Completed [facility]ive [facility] of 00:00:00 [facility] [place] Influenza High Dose 2016-11-14 Completed [facility]ity of 00:00:00 [facility] [place] Influenza High Dose 2016-11-14 Completed [facility] of 00:00:00 [facility] [place] Influenza High Dose 2016-11-14 Completed [facility] of 00:00:00 [facility] [place] Influenza High Dose 2016-11-14 Completed [facility] of 00:00:00 [facility] [place] Influenza High Dose 2016-11-14 Completed [facility] rs[facility] of 00:00:00 [facility] Influenza High Dose 2016-11-14 Completed [facility]ive rsity of 00:00:00 [facility] Influenza High Dose 2016-11-14 Completed [facility] of 00:00:00 [facility] Influenza High Dose 2016-11-14 Completed [facility] of 00:00:00 [facility] [place] Influenza High Dose 2016-11-14 Completed [facility]ive [facility] of 00:00:00 [facility] [place] Influenza High Dose 2016-11-14 Completed [facility]ity of 00:00:00 [facility] Influenza High Dose 2016-11-14 Completed [facility] of 00:00:00 [facility] [place] Influenza High Dose 2016-11-14 Completed [facility] of 00:00:00 [facility] [place] Influenza High Dose 2016-11-14 Completed [facility] of 00:00:00 [facility] [place] Influenza High Dose 2016-11-14 Completed [facility] of 00:00:00 [facility] [place] Influenza High Dose 2016-11-14 Completed [facility] of 00:00:00 [facility] [place] Influenza High Dose 2016-11-14 Completed [facility] of 00:00:00 [facility] [place] Influenza High Dose 2016-11-14 Completed [facility] of 00:00:00 [facility] [place] Influenza High Dose 2016-11-14 Completed [facility] of 00:00:00 [facility] [place] Influenza High Dose 2016-11-14 Completed [facility] of 00:00:00 [facility] [place] Influenza High Dose 2016-11-14 Completed [facility] of 00:00:00 [facility] [place] Influenza High Dose 2016-11-14 Completed [facility] 00:00:00 [facility] Influenza High Dose 2016-11-14 Completed [facility]ity of 00:00:00 [facility] [place] Influenza High Dose 2016-11-14 Completed [facility] of 00:00:00 [facility] Influenza High Dose 2016-11-14 Completed Unive rsity of 00:00:00 [facility] [place] Influenza High Dose 2016-11-14 Completed [facility]ive [facility] of 00:00:00 [facility] [place] Influenza High Dose 2016-11-14 Completed [facility] of 00:00:00 [facility] [place] Influenza High Dose 2016-11-14 Completed [facility] of 00:00:00 [facility] [place] Influenza High Dose 2016-11-14 Completed [facility] of 00:00:00 [facility] [place] Influenza High Dose 2016-11-14 Completed [facility] of 00:00:00 [facility] [place] Influenza High Dose 2016-11-14 Completed [facility] of 00:00:00 [facility] [place] Influenza High Dose 2016-11-14 Completed [facility] of 00:00:00 [facility] [place] Influenza High Dose 2016-11-14 Completed [facility] of 00:00:00 [facility] [place] Influenza High Dose 2016-11-14 Completed [facility] of 00:00:00 [facility] [place] Influenza High Dose 2016-11-14 Completed [facility] of 00:00:00 [facility] [place] Influenza High Dose 2016-11-14 Completed [facility] of 00:00:00 [facility] [place] Influenza High Dose 2016-11-14 Completed [facility] of 00:00:00 [facility] [place] Influenza High Dose 2016-11-14 Completed Un[facility]ity of 00:00:00 [facility] [place] Influenza High Dose 2016-11-14 Completed [facility] of 00:00:00 [facility] [place] Influenza High Dose 2016-11-14 Completed [facility] of 00:00:00 [facility] [place] Influenza High Dose 2016-11-14 Completed [facility] of 00:00:00 [facility] [place] Influenza High Dose 2016-11-14 Completed [facility] of 00:00:00 [facility] [place] Influenza High Dose 2016-11-14 Completed [facility] of 00:00:00 [facility] [place] Influenza High Dose 2016-11-14 Completed [facility] of 00:00:00 [facility] [place] Influenza High Dose 2016-11-14 Completed [facility] of 00:00:00 [facility] [place] Influenza High Dose 2016-11-14 Completed [facility] of 00:00:00 [facility] [place] Influenza High Dose 2016-11-14 Completed [facility] of 00:00:00 [facility] [place] Influenza High Dose 2016-11-14 Completed [facility] of 00:00:00 [facility] [place] Influenza High Dose 2016-11-14 Completed [facility] of 00:00:00 [facility] [place] Influenza High Dose 2016-11-14 Completed [facility] of 00:00:00 [facility] [place] Influenza High Dose 2016-11-14 Completed [facility] of 00:00:00 [facility] [place] Influenza High Dose 2016-11-14 Completed [facility] of 00:00:00 [facility] [place] Influenza High Dose 2016-11-14 Completed [facility]ity of 00:00:00 [facility] [place] Influenza High Dose 2016-11-14 Completed [facility] of 00:00:00 [facility] [place] Influenza High Dose 2016-11-14 Completed [facility] of 00:00:00 [facility] [place] Influenza High Dose 2016-11-14 Completed [facility]ive [facility] of 00:00:00 [facility] [place] Influenza High Dose 2016-11-14 Completed [facility]ity of 00:00:00 [facility] [place] Influenza High Dose 2016-11-14 Completed [facility] of 00:00:00 [facility] [place] Influenza High Dose 2016-11-14 Completed [facility] of 00:00:00 [facility] [place] Influenza High Dose 2016-11-14 Completed [facility] of 00:00:00 [facility] [place] Influenza High Dose 2016-11-14 Completed [facility] of 00:00:00 [facility] [place] Influenza High Dose 2016-11-14 Completed [facility] of 00:00:00 [facility] [place] Influenza High Dose 2016-11-14 Completed [facility] of 00:00:00 [facility] [place] Influenza High Dose 2016-11-14 Completed [facility] of 00:00:00 [facility] [place] Influenza High Dose 2016-11-14 Completed [facility] of 00:00:00 [facility] [place] Influenza High Dose 2016-11-14 Completed [facility] of 00:00:00 [facility] [place] Influenza High Dose 2016-11-14 Completed [facility] of 00:00:00 [facility] [place] Influenza High Dose 2016-11-14 Completed [facility] of 00:00:00 [facility] [place] Influenza High Dose 2016-11-14 Completed [facility] of 00:00:00 [facility] [place] Influenza High Dose 2016-11-14 Completed [facility] of 00:00:00 [facility] [place] Influenza High Dose 2016-11-14 Completed [facility] of 00:00:00 [facility] [place] Influenza High Dose 2016-11-14 Completed [facility] of 00:00:00 [facility] [place] Influenza High Dose 2016-11-14 Completed [facility] of 00:00:00 [facility] [place] Influenza High Dose 2016-11-14 Completed [facility] of 00:00:00 [facility] [place] Influenza High Dose 2016-11-14 Completed [facility] of 00:00:00 [facility] [place] Influenza High Dose 2016-11-14 Completed [facility] of 00:00:00 [facility] [place] Influenza High Dose 2016-11-14 Completed [facility] of 00:00:00 [facility] [place] Influenza High Dose 2016-11-14 Completed [facility] of 00:00:00 [facility] [place] Influenza High Dose 2016-11-14 Completed [facility] of 00:00:00 [facility] [place] Influenza High Dose 2016-11-14 Completed [facility] of 00:00:00 [facility] [place] Influenza High Dose 2016-11-14 Completed [facility] of 00:00:00 [facility] [place] Influenza High Dose 2016-11-14 Completed [facility] of 00:00:00 [facility] [place] Influenza High Dose 2016-11-14 Completed [facility] of 00:00:00 [facility] [place] Influenza High Dose 2016-11-14 Completed [facility] of 00:00:00 [facility] [place] Influenza High Dose 2016-11-14 Completed [facility] of 00:00:00 [facility] [place] Influenza High Dose 2016-11-14 Completed [facility] of 00:00:00 [facility] [place] Influenza High Dose 2016-11-14 Completed [facility] of 00:00:00 [facility] [place] Influenza High Dose 2016-11-14 Completed [facility] of 00:00:00 [facility] [place] Influenza High Dose 2016-11-14 Completed [facility] of 00:00:00 [facility] [place] Influenza High Dose 2016-11-14 Completed [facility] of 00:00:00 [facility] [place] Influenza High Dose 2016-11-14 Completed [facility] of 00:00:00 [facility] [place] Influenza High Dose 2016-11-14 Completed [facility] of 00:00:00 [facility] [place] Influenza High Dose 2016-11-14 Completed [facility] of 00:00:00 [facility] [place] Influenza High Dose 2016-11-14 Completed [facility] of 00:00:00 [facility] [place] Influenza High Dose 2016-11-14 Completed [facility] of 00:00:00 [facility] [place] Influenza High Dose 2016-11-14 Completed [facility] 00:00:00 [facility] Influenza High Dose 2016-11-14 Completed [facility]ive rsity of 00:00:00 [facility] [place] Influenza High Dose 2016-11-14 Completed [facility] of 00:00:00 [facility] [place] Influenza High Dose 2016-11-14 Completed [facility] of 00:00:00 [facility] [place] Influenza High Dose 2016-11-14 Completed [facility] of 00:00:00 [facility] [place] Influenza High Dose 2016-11-14 Completed [facility] of 00:00:00 [facility] [place] Influenza High Dose 2016-11-14 Completed [facility] of 00:00:00 [facility] [place] Influenza High Dose 2016-11-14 Completed [facility] of 00:00:00 [facility] [place] Influenza High Dose 2016-11-14 Completed [facility] of 00:00:00 [facility] [place] Influenza High Dose 2016-11-14 Completed [facility] of 00:00:00 [facility] [place] Influenza High Dose 2016-11-14 Completed [facility] of 00:00:00 [facility] [place] Vital Signs Vital Name Observation Time Observation Value Comments Source HEIGHT 2019-07-08 00:00:00 147.3 cm WEIGHT 2019-07-08 00:00:00 57.743 kg Systolic blood 2022-10-26 15:21:00 132 mm[Hg] Univer [facility]ity of pressure [facility] Diastolic blood 2022-10-26 15:21:00 50 mm[Hg] Unive rsity of pressure [facility] Heart rate 2022-10-26 15:21:00 70 /min [facility] Respiratory rate 2022-10-26 15:21:00 18 /min Univ ersity of [facility] Body height 2022-10-26 15:21:00 160 cm [facility] Body weight 2022-10-26 15:21:00 63.504 kg [facility] BMI 2022-10-26 15:21:00 24.80 kg/m2 [facility] Oxygen saturation in 2022-10-26 15:21:00 96 /min [facility] Arterial blood by [facility] Pulse oximetry Branch Systolic blood 2022-09-22 20:30:00 124 mm[Hg] Univer sity of pressure [facility] Diastolic blood 2022-09-22 20:30:00 68 mm[Hg] Unive rsity of pressure [facility] Heart rate 2022-09-22 20:30:00 89 /min [facility] Respiratory rate 2022-09-22 20:30:00 18 /min [facility] Body height 2022-09-22 20:30:00 160 cm [facility] Body weight 2022-09-22 20:30:00 63.957 kg [facility] BMI 2022-09-22 20:30:00 24.98 kg/m2 [facility] Oxygen saturation in 2022-09-22 20:30:00 96 /min [facility] of Arterial blood by [place] [facility] Pulse o[facility] Systolic blood 2022-09-08 15:26:00 134 mm[Hg] Univer sity of pressure [facility] Diastolic blood 2022-09-08 15:26:00 65 mm[Hg] Unive rsity of pressure [facility] Heart rate 2022-09-08 15:10:00 86 /min [facility] Body temperature 2022-09-08 15:10:00 36.61 Monique [facility] Body height 2022-09-08 15:10:00 160 cm [facility] Body weight 2022-09-08 15:10:00 64.139 kg [facility] BMI 2022-09-08 15:10:00 25.05 kg/m2 [facility] Oxygen saturation in 2022-09-08 15:10:00 97 /min [facility] Arterial blood by [place] [facility] Systolic blood 2022-08-09 18:25:00 125 mm[Hg] Univer [facility]ity of pressure [facility] Diastolic blood 2022-08-09 18:25:00 76 mm[Hg] Unive rsity of pressure [facility] Heart rate 2022-08-09 18:25:00 62 /min [facility] Respiratory rate 2022-08-09 18:25:00 19 /min [facility] Body height 2022-08-09 18:25:00 160 cm [facility] Body weight 2022-08-09 18:25:00 62.687 kg [facility] BMI 2022-08-09 18:25:00 24.48 kg/m2 [facility] Oxygen saturation in 2022-08-09 18:25:00 96 /min [facility] of Arterial blood by [facility] Pulse oximetry Branch Systolic blood 2022-08-09 15:15:00 138 mm[Hg] Univer [facility]ity of pressure [facility] Diastolic blood 2022-08-09 15:15:00 71 mm[Hg] Unive rsity of pressure [facility] Heart rate 2022-08-09 15:15:00 93 /min [facility] Body height 2022-08-09 15:15:00 160 cm [facility] Body weight 2022-08-09 15:15:00 62.642 kg [facility] BMI 2022-08-09 15:15:00 24.46 kg/m2 [facility] Oxygen saturation in 2022-08-09 15:15:00 96 /min [facility] of Arterial blood by [facility] Pulse oximetry Branch Systolic blood 2022-07-12 20:34:00 117 mm[Hg] [facility]iver [facility] Diastolic blood 2022-07-12 20:34:00 54 mm[Hg] Unive rsity of pressure [facility] Heart rate 2022-07-12 20:34:00 87 /min [facility] Body temperature 2022-07-12 20:34:00 36.56 Monique [facility] Respiratory rate 2022-07-12 20:34:00 17 /min [facility] Body weight 2022-07-12 20:34:00 63.957 kg [facility] BMI 2022-07-12 20:34:00 24.51 kg/m2 [facility] Oxygen saturation in 2022-07-12 20:34:00 96 /min [facility] Arterial blood by [facility] Pulse oximetry Branch Systolic blood 2022-06-28 15:18:00 130 mm[Hg] [facility] Diastolic blood 2022-06-28 15:18:00 55 mm[Hg] Unive rsity of pressure [facility] Heart rate 2022-06-28 14:36:00 75 /min [facility] [place] [facility] Respiratory rate 2022-06-28 14:36:00 20 /min [facility] Body height 2022-06-28 14:36:00 161.5 cm [facility] Body weight 2022-06-28 14:36:00 65 kg [facility] BMI 2022-06-28 14:36:00 24.91 kg/m2 [facility] Oxygen saturation in 2022-06-28 14:36:00 98 /min [facility] Arterial blood by [facility] Pulse oximetry Branch Systolic blood 2022-06-09 18:20:00 126 mm[Hg] [facility] Diastolic blood 2022-06-09 18:20:00 56 mm[Hg] [facility] Heart rate 2022-06-09 18:20:00 83 /min [facility] Oxygen saturation in 2022-06-09 18:20:00 93 /min [facility] Arterial blood by [facility] Pulse oximetry Branch Respiratory rate 2022-06-09 18:18:00 17 /min [facility] Body height 2022-06-09 18:18:00 157.5 cm [facility] Body weight 2022-06-09 18:18:00 64.411 kg [facility] BMI 2022-06-09 18:18:00 25.97 kg/m2 [facility] Systolic blood 2022-06-07 21:32:00 126 mm[Hg] [facility] Diastolic blood 2022-06-07 21:32:00 71 mm[Hg] [facility] Heart rate 2022-06-07 21:32:00 77 /min [facility] Body temperature 2022-06-07 21:32:00 37.28 Monique [facility] Respiratory rate 2022-06-07 21:32:00 16 /min [facility] Body height 2022-06-07 21:32:00 157.5 cm [facility] Body weight 2022-06-07 21:32:00 64.547 kg [facility] BMI 2022-06-07 21:32:00 26.03 kg/m2 [facility] Oxygen saturation in 2022-06-07 21:32:00 97 /min [facility] Arterial blood by [facility] Pulse oximetry Branch WEIGHT 2022-06-01 05:00:00 64.638 kg HEIGHT 2022-05-28 08:00:00 157.5 cm WEIGHT 2022-05-28 08:00:00 64 kg WEIGHT 2022-06-01 05:00:00 64.638 kg HEIGHT 2022-05-28 08:00:00 157.5 cm WEIGHT 2022-05-28 08:00:00 64 kg Systolic blood 2022-05-25 19:34:00 128 mm[Hg] [facility] Diastolic blood 2022-05-25 19:34:00 54 mm[Hg] [facility] Heart rate 2022-05-25 19:34:00 77 /min [facility] Body height 2022-05-25 19:34:00 157.5 cm [facility] Body weight 2022-05-25 19:34:00 62.551 kg [facility] BMI 2022-05-25 19:34:00 25.22 kg/m2 [facility] Oxygen saturation in 2022-05-25 19:34:00 95 /min [facility] Arterial blood by [facility] Pulse oximetry Branch Systolic blood 2022-05-17 19:02:00 166 mm[Hg] [facility] Diastolic blood 2022-05-17 19:02:00 75 mm[Hg] [facility] Heart rate 2022-05-17 19:02:00 104 /min [facility] Body temperature 2022-05-17 19:02:00 36.78 Monique [facility] Respiratory rate 2022-05-17 19:02:00 18 /min Univ ersity of [facility] Branch Body height 2022-05-17 19:02:00 144.8 cm [facility] Body weight 2022-05-17 19:02:00 64.955 kg [facility] BMI 2022-05-17 19:02:00 30.99 kg/m2 [facility] Oxygen saturation in 2022-05-17 19:02:00 98 /min [facility] Arterial blood by [facility] Pulse oximetry Branch Systolic blood 2022-04-08 19:24:00 134 mm[Hg] [facility] Diastolic blood 2022-04-08 19:24:00 73 mm[Hg] [facility] Heart rate 2022-04-08 19:24:00 73 /min [facility] Body height 2022-04-08 19:24:00 157.5 cm [facility] Body weight 2022-04-08 19:24:00 64.864 kg [facility] BMI 2022-04-08 19:24:00 26.16 kg/m2 [facility] Systolic blood 2022-04-11 15:24:00 136 mm[Hg] [facility] Diastolic blood 2022-04-11 15:24:00 76 mm[Hg] [facility] Heart rate 2022-04-11 15:24:00 83 /min [facility] Body height 2022-04-11 15:24:00 157.5 cm [facility] Body weight 2022-04-11 15:24:00 63.504 kg [facility] BMI 2022-04-11 15:24:00 25.61 kg/m2 [facility] Oxygen saturation in 2022-04-11 15:24:00 97 /min [facility] Arterial blood by [facility] Pulse oximetry Branch Systolic blood 2022-03-11 20:35:00 136 mm[Hg] [facility] Diastolic blood 2022-03-11 20:35:00 76 mm[Hg] [facility] Heart rate 2022-03-11 20:33:00 83 /min [facility] Body temperature 2022-03-11 20:33:00 37.11 Monique [facility] Body height 2022-03-11 20:33:00 157.5 cm [facility] [place] [facility] Body weight 2022-03-11 20:33:00 63.504 kg [facility] BMI 2022-03-11 20:33:00 25.61 kg/m2 [facility] Oxygen saturation in 2022-03-11 20:33:00 97 /min [facility] Arterial blood by [facility] Pulse oximetry Branch Systolic blood 2022-03-11 14:27:00 145 mm[Hg] [facility] Diastolic blood 2022-03-11 14:27:00 68 mm[Hg] [facility] Heart rate 2022-03-11 14:26:00 78 /min [facility] Body height 2022-03-11 14:26:00 157.5 cm [facility] Body weight 2022-03-11 14:26:00 61.236 kg [facility] BMI 2022-03-11 14:26:00 24.69 kg/m2 [facility] Oxygen saturation in 2022-03-11 14:26:00 99 /min [facility] by [place] [facility] Pulse oximetry Branch Systolic blood 2022-02-25 23:37:00 131 mm[Hg] [facility] Diastolic blood 2022-02-25 23:37:00 85 mm[Hg] [facility] Heart rate 2022-02-25 23:37:00 70 /min [facility] Body temperature 2022-02-25 23:37:00 36.83 Monique [facility] Respiratory rate 2022-02-25 23:37:00 18 /min [facility] Body height 2022-02-25 23:37:00 157.5 cm [facility] Body weight 2022-02-25 23:37:00 58.968 kg [facility] BMI 2022-02-25 23:37:00 23.78 kg/m2 [facility] Oxygen saturation in 2022-02-25 23:37:00 99 /min [facility] [place] [facility] Pulse oximetry Branch Systolic blood 2022-01-21 21:34:00 133 mm[Hg] [facility] Diastolic blood 2022-01-21 21:34:00 75 mm[Hg] [facility] Heart rate 2022-01-21 21:34:00 80 /min [facility] Body temperature 2022-01-21 21:34:00 36.5 Monique [facility] Body height 2022-01-21 21:34:00 144.8 cm [facility] Body weight 2022-01-21 21:34:00 62.596 kg [facility] BMI 2022-01-21 21:34:00 29.86 kg/m2 [facility] Oxygen saturation in 2022-01-21 21:34:00 96 /min [facility] Arterial blood by [facility] Pulse oximetry Branch Systolic blood 2021-12-24 20:33:00 135 mm[Hg] [facility] Diastolic blood 2021-12-24 20:33:00 65 mm[Hg] [facility] Heart rate 2021-12-24 20:33:00 73 /min [facility] Body temperature 2021-12-24 20:33:00 36.56 Monique [facility] Body height 2021-12-24 20:33:00 144.8 cm [facility] Body weight 2021-12-24 20:33:00 62.596 kg [facility] BMI 2021-12-24 20:33:00 29.86 kg/m2 [facility] Oxygen saturation in 2021-12-24 20:33:00 96 /min [facility] Arterial blood by [facility] angelica Pulse oximetry Branch Systolic blood 2021-12-03 18:46:00 148 mm[Hg] [facility] Diastolic blood 2021-12-03 18:46:00 70 mm[Hg] [facility]ive rsity [facility] Heart rate 2021-12-03 18:45:00 97 /min [facility] Body temperature 2021-12-03 18:45:00 37.33 Monique [facility] Body height 2021-12-03 18:45:00 144.8 cm [facility] Body weight 2021-12-03 18:45:00 62.143 kg [facility] BMI 2021-12-03 18:45:00 29.65 kg/m2 [facility] Oxygen saturation in 2021-12-03 18:45:00 96 /min [facility] Arterial blood by [facility] Pulse oximetry Branch Systolic blood 2021-11-26 20:46:00 158 mm[Hg] [facility] Diastolic blood 2021-11-26 20:46:00 72 mm[Hg] [facility]ive [facility]ity [facility] Heart rate 2021-11-26 20:46:00 98 /min [facility] Body height 2021-11-26 20:46:00 160 cm [facility] Body weight 2021-11-26 20:46:00 61.689 kg [facility] BMI 2021-11-26 20:46:00 24.09 kg/m2 [facility] Systolic blood 2021-11-02 18:10:00 152 mm[Hg] [facility] Diastolic blood 2021-11-02 18:10:00 73 mm[Hg] [facility]ive rsity of [facility] Heart rate 2021-11-02 18:10:00 83 /min [facility] Body height 2021-11-02 18:10:00 160 cm [facility] Body weight 2021-11-02 18:10:00 61.689 kg [facility] BMI 2021-11-02 18:10:00 24.09 kg/m2 [facility] Oxygen saturation in 2021-11-02 18:10:00 95 /min [facility] Arterial blood by [facility] Pulse oximetry Branch Systolic blood 2021-10-25 20:11:00 138 mm[Hg] [facility] Diastolic blood 2021-10-25 20:11:00 64 mm[Hg] [facility] Heart rate 2021-10-25 20:11:00 64 /min [facility] Body temperature 2021-10-25 20:11:00 36.5 Monique [facility] Body height 2021-10-25 20:11:00 160 cm [facility] Body weight 2021-10-25 20:11:00 61.689 kg [facility] BMI 2021-10-25 20:11:00 24.09 kg/m2 [facility] Oxygen saturation in 2021-10-25 20:11:00 96 /min [facility] [place] [facility] P[facility] Systolic blood 2021-07-09 21:36:00 132 mm[Hg] [facility] [place] [facility] [place] Diastolic blood 2021-07-09 21:36:00 65 mm[Hg] [facility] [place] [facility] [place] Body temperature 2021-07-09 21:36:00 36.33 Monique [facility] [place] Heart rate 2021-07-09 21:10:00 73 /min [facility] Body height 2021-07-09 21:10:00 142.2 cm [facility] Body weight 2021-07-09 21:10:00 61.598 kg [facility] BMI 2021-07-09 21:10:00 30.45 kg/m2 [facility] Oxygen saturation in 2021-07-09 21:10:00 96 /min [facility] Arterial blood by [facility] angelica Pulse oximetry Branch HEIGHT 2019-07-08 00:00:00 [...] pressure, 2019-06-25 09:35:00 153 mm[Hg] Legac y [facility] systolic Health Procedures Procedure Date / Time Performing Clinician Source Performed CBC WITH DIFF 2022-09-08 16:33:00 [facility] COMP. METABOLIC PANEL 2022-09-08 16:33:00 [id number] N-TERMINAL PRO-BNP 2022-09-08 16:33:00 Ceci Lo.HGertrude Dhillon [facility] HOME HEALTH - OTHER 2022-08-08 05:01:00 Doctor Alejo L[facility]pez [facility] EXTERNAL PROVIDER RECORDS 2022-07-21 05:01:00 Doctor Rene [facility] HEALTH - OTHER 2022-07-11 05:01:00 Alejo Webb [facility] Name [facility] HEALTH - OTHER 2022-07-01 05:01:00 Doctor [facility]ene [facility] Name [facility] HEALTH - OTHER 2022-06-28 05:01:00 Doctor Rene [facility] Name [facility] Branch HOME HEALTH - OTHER 2022-06-24 05:01:00 Doctor Rene [facility] Name [facility] NM MYOCARDIUM PERFUSION 2022-06-23 16:20:00 Ceci Lo K.HGertrude [facility] STRESS AND REST [facility] NUCLEAR STRESS TEST 2022-06-23 16:20:00 Ceci Lo [facility] CARDIOLOGY (DO NOT SCHED) Medica l Branch NM MYOCARDIUM PERFUSION 2022-06-23 16:20:00 Teresita Sendbekah [facility] STRESS AND REST Medical Branch NUCLEAR STRESS TEST 2022-06-23 16:20:00 Lo, Sendil [facility] CARDIOLOGY (DO NOT SCHED) Medica l Branch NM MYOCARDIUM PERFUSION 2022-06-23 16:20:00 Lo, Sendbekah [facility] STRESS AND REST Medical Branch NUCLEAR STRESS TEST 2022-06-23 16:20:00 Lo, Sendil [facility] CARDIOLOGY (DO NOT SCHED) Medica l Branch NM MYOCARDIUM PERFUSION 2022-06-23 16:20:00 Ceci Lo [facility] STRESS AND REST [facility] NUCLEAR STRESS TEST 2022-06-23 16:20:00 Ceci Lo [facility] CARDIOLOGY (DO NOT SCHED) [facility] HE[facility] - OTHER 2022-06-21 05:01:00 Doctor Rene [facility] BASIC METABOLIC PANEL 2022-06-11 13:49:00 [facility] (NA, K, CL, CO2, GLUCOSE, [facility] BUN, CREATININE, CA) N-TERMINAL PRO-BNP 2022-06-11 13:49:00 Ceci Lo [facility] COMP. METABOLIC PANEL 2022-06-10 14:37:00 [facility] ([id number] N-TERMINAL PRO-BNP 2022-06-10 14:37:00 Ceci Lo [facility] HEALTH - OTHER 2022-06-07 05:01:00 Doctor Rene [facility] HB ECG ROUTINE & RHYTHM 2022-05-25 19:30:49 Ceci Lo [facility] STRIP Medical Branch PNEUMOCOCCAL 20 CONJUGATE 2022-05-17 19:39:37 Angela Cunningham [facility] (PREVNAR 20) VACCINE Medical Bra [facility] ASSIGNMENT OF BENEFITS 2022-05-17 18:46:13 Doctor Unassregine, [facility] Name Medical Branch EXTERNAL PROVIDER RECORDS 2022-04-12 06:01:00 Doctor López [facility] REFERRAL- 2022-04-03 06:01:00 Doctor Rene, [facility] REQUEST/RESPONSE [facility] CBC WITH DIFF 2022-03-11 21:42:00 Angela Cunningham [place] o [facility] URINE CULTURE 2022-03-11 21:42:00 Chary Donald [facility] REFERRAL- 2022-02-23 06:01:00 Doctor Rene, [facility] REQUEST/RESPONSE [facility] EMERGENCY SERVICES 2021-12-31 06:01:00 Doctor Rene, [facility] AGREEMENTS AND [facility] AUTHORIZATIONS FLU 2021-12-24 21:05:18 Chary Donald [facility] VACC(),65+YR,0.5 Medica l Branch ML,IM,ADJUVANTED,QUAD(FLU AD) MR BRAIN WO CONTRAST 2021-11-19 15:41:00 Won Matt Un [facility] EXTERNAL PROVIDER RECORDS 2021-11-18 05:01:00 Doctor Rene, [facility] EXTERNAL PROVIDER RECORDS 2021-11-01 05:01:00 Doctor Rene, [facility] AUTHORIZATION TO RELEASE 2021-10-25 05:01:00 Doctor López, [facility] PHI TO [facility] URINALYSIS 2021-09-03 13:22:00 Chary Donald [facility] LIPASE 2021-09-03 13:08:00 Chary Donald [facility] COMP. METABOLIC PANEL 2021-09-03 13:08:00 Chary Donald [facility] ([id number]) [facility] CBC WITH DIFF 2021-09-03 13:08:00 Chary Donald [facility] Plan of Care Planned Activity Planned Date [...] DXA [facility] Test 00:00:00 SCAN] [facility] Future Scheduled 1936 DXA SCAN [code = DXA [facility] Test 00:00:00 SCAN] [facility] Future Scheduled 1936 DXA SCAN [code = DXA [facility] Test 00:00:00 SCAN] [facility] Future Scheduled 1936 DXA SCAN [code = DXA [facility] Test 00:00:00 SCAN] [facility] Future Scheduled 1936 DXA SCAN [code = DXA [facility] Test 00:00:00 SCAN] [facility] Future Scheduled 1936 DXA SCAN [code = DXA [facility] Test 00:00:00 SCAN] [facility] Future Scheduled 1936 DXA SCAN [code = DXA [facility] Test 00:00:00 SCAN] [facility] Encounters Start End Encounter Admission Attending Care Care Encounter Source Date/Time Date/Time Type Type Clinicians Facility Department ID 2020-11-17 Inpatient ER UGILLERMO [facility] Urology [id number] [facility] 14:52:09 LILIANA 2022-12-26 2022-12-26 Outpatient R TERESITA [facility] [id number] Univers 10:00:00 10:00:00 SENDBEKAH [facility] 2022-12-05 2022-12-05 [id number] Univers 15:30:00 15:30:00 JEM karen [facility] 2022-11-01 2022-11-01 Outpatient R ANGELA CUNNINGHAM [facility] [id number] Univers 10:00:00 10:00:00 ANGELA CUNNINGHAM karen [facility] 2022-10-28 2022-10-28 Telephone Teresita [facility] [id number] Univers 00:00:00 00:00:00 [id number] [id number] Joan WHITLEY [id number] [address] 2022-10-26 2022-10-26 [employer] Partition Erector 2, Adc Lab [facility] [id number] Univers 11:15:00 11:30:00 Visit Ceci Lo 350.1.13. 10 [id number] [id number] [facility] KIT 353 [facility] 2022-10-26 2022-10-26 Outpatient R [facility] [id number] Univers 10:00:00 10:48:18 SENDIL itkaren [facility] 2022-10-26 2022-10-26 Office [facility] [id number] Univers 10:00:00 10:48:18 Visit Ceci ALBRECHT [id number] [id number] [id number] [address] 2022-10-07 2022-10-07 Outpatient R ANGELA CUNNINGHAM [facility] [id number] Univers 10:20:00 10:20:00 [facility] 2022-09-27 2022-09-27 Refill [facility] [id number] Univers 00:00:00 00:00:00 [facility] [id number] ity [facility] [id number] Kilo as KRZYSZTOF?BLEA [id number] [address] 2022-09-22 2022-09-22 Outpatient R [facility]LECT [facility]ICAL [facility] [id number] Univers 15:00:00 16:06:41 SENDIL ity [facility] 2022-09-22 2022-09-22 [facility] [id number] Univers 15:00:00 16:06:41 Visit Ceci ALBRECHT [id number] [id number] [id number] [facility] 059 [facility] 2022-09-12 2022-09-12 Telephone [facility] [id number] Univers 00:00:00 00:00:00 Ceci AcuñaHGertrude SIEGELYASH [id number] ity of [id number] [id number] Oh dical NAL 9 [facility] 2022-09-08 2022-09-08 [employer] Partition Erector Lab, Ang - Db [facility] [id number] Univers 11:30:00 11:41:31 Visit Octavio [facility] [id number] ity of [place] [id number] Kilo as KRZYSZTOF?BLEA [id number] [facility] [address] [place] MEDICAL OFFICE [facility] 2022-09-08 2022-09-08 Outpatient R OCTAVIO ANGELA [facility] [id number] Univers 10:00:00 11:13:59 OCTAVIO ANGELA [facility] 2022-09-08 2022-09-08 Office [facility] [id number] Univers 10:00:00 11:13:59 Visit [facility] [id number] ity of [place] [id number] Kilo as KRZYSZTOF?BLEA [id number] [address] OFFICE [facility] 2022-08-09 2022-08-09 Outpatient R TERESITA [facility] [id number] Univers 13:00:00 14:10:05 [facility] 2022-08-09 2022-08-09 Office [facility] [id number] Univers 13:00:00 14:10:05 Visit [facility]bekah [facility] [id number] [place] [id number] Oh dical NAL 9 [facility] 2022-08-09 2022-08-09 Office [facility] [id number] [id number] Univers 10:00:00 11:36:08 Visit [facility] [id number] ity of [place] [id number] Kilo as KRZYSZTOF?BLEA [id number] [address] OFFICE [facility] 2022-08-08 2022-08-08 Orders Doctor LILLIANA 1.2.840.114 [id number] Univers 00:00:00 00:00:00 Only Unassigned, MACKENZIE 350.1.13.10 ity of [facility] [id number] Kilo as [id number] [address] 2022-08-04 2022-08-04 Refill [facility] 1.2.840.114 [id number] Univers 00:00:00 00:00:00 Angela HEALTH [id number] ity of [place] [id number] Kilo as KRZYSZTOF?BLEA [id number] [address] OFFICE [facility] 2022-07-27 2022-07-27 Telephone [facility] [id number] Univers 00:00:00 00:00:00 Ceci Valdez [place] [id number] [id number] [id number] [facility] 059 [facility] 2022-07-21 2022-07-21 Orders Doctor LILLIANA 1.2.840.114 [id number] Univers 00:00:00 00:00:00 Only Unassigned, MACKENZIE 350.1.13.10 ity of [place] [facility] 4.2.7.2.686 Kilo as [phone] [address] 2022-07-18 2022-07-18 Refill [facility] 1.2.840.114 [id number] Univers 00:00:00 00:00:00 Angela HEALTH 350.1.13.10 ity of [place] 4.2.7.2.686 Kilo as KRZYSZTOF?BLEA [id number] [address] MEDICAL OFFICE [facility] 2022-07-13 2022-07-13 Patient [facility] 1.2.840.114 [id number] Univers 00:00:00 00:00:00 Secure Msg Angela HEALTH 350.1.13.10 ity of [place] 4.2.7.2.686 Kilo as KRZYSZTOF?BLEA [id number] Oh salvatore NATALIE 044 [facility] OFFICE [facility] 2022-07-12 2022-07-12 Outpatient R TERESITA [facility] [id number] Univers 14:00:00 16:32:11 SENDIL karina [facility] 2022-07-12 2022-07-12 Office Teresita [facility] 1.2.840.114 [id number] Univers 14:00:00 16:32:11 Visit Sendbekah ALBRECHT 350.1.13.10 ity of [place] [id number] Oh dicma NAL [address] [place] [address] 2022-07-12 2022-07-12 Telephone Teresita [facility] 1.2.670.005 [id number] [id number] Univers 00:00:00 00:00:00 Sendbekah ALBRECHT 350.1.13.10 ity of [place] [id number] Oh dicma NAL [address] [place] [address] 2022-07-11 2022-07-11 Orders Doctor LILLIANA 1.2.840.114 [id number] Univers 00:00:00 00:00:00 Only Unassigned, MACKENZIE 350.1.13.10 ity of [place] [facility] 4.2.7.2.686 Kilo as [id number] [address] 2022-07-08 2022-07-08 Hollow 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 1.2.840.1 14 [id number] Univers 09:00:00 09:15:00 Visit Angela Cunningham [facility] 350.1.13.10 ity of [place] 4.2.7.2.686 Kilo as KRZYSZTOF?BLEA [id number] Oh salvatore ESTRADA 353 [facility] OFFICE [facility] 2022-07-08 2022-07-08 Outpatient R ANGELA CUNNINGHAM [facility] [id number] Univers 09:00:00 09:00:00 ANGELA CUNNINGHAM [facility] 2022-07-08 2022-07-08 Refill Octavio [facility] 1.2.840.114 [id number] Univers 00:00:00 00:00:00 Angela HEALTH 350.1.13.10 ity [facility] 4.2.7.2.686 Kilo as KRZYSZTOF?BLEA [id number] [address] OFFICE [facility] 2022-07-01 2022-07-01 Outpatient R NADINETASIA ZhangINE [facility] [id number] [facility] 11:20:00 11:20:00 OCTAVIO ANGELA collins [facility] 2022-07-01 2022-07-01 Orders Doctor LILLIANA 1.2.840.114 [id number] Univers 00:00:00 00:00:00 Only Unassigned, MACKENZIE 350.1.13.10 ity of [place] [facility] 4.2.7.2.686 Kilo as [phone] [address] 2022-06-28 2022-06-28 Outpatient R NADINEKaren ANGELA [facility] [id number] Univers 09:20:00 10:19:27 ANGELA CUNNINGHAM [facility] 2022-06-28 2022-06-28 Office [facility] 1.2.840.114 [id number] [facility] 09:20:00 10:19:27 Visit [place] HEALTH 350.1.13.10 ity of [place] 4.2.7.2.686 Kilo as KRZYSZTOF?BLEA [id number] [address] OFFICE [facility] 2022-06-28 2022-06-28 Telephone [facility] 1.2.887.563 [id number] Univers 00:00:00 00:00:00 Angela HEALTH 350.1.13.10 ity of [facility] 4.2.7.2.686 Kilo as KRZYSZTOF?BLEA [id number] [address] MEDICAL OFFICE [facility] 2022-06-28 2022-06-28 Orders Doctor LILLIANA 1.2.840.114 [id number] Univers 00:00:00 00:00:00 Only Unassigned, MACKENZIE 350.1.13.10 ity of [place] [facility] 4.2.7.2.686 Kilo as [phone] [address] 2022-06-24 2022-06-24 [facility] 1.2.569.625 [id number] Univers 00:00:00 00:00:00 Sendbekah ALBRECHT 350.1.13.10 ity of [place] [phone] Oh dical [facility] [address] [facility] 2022-06-24 2022-06-24 Orders Doctor LILLIANA 1.2.840.114 [id number] Univers 00:00:00 00:00:00 Only Unassigned, MACKENZIE 350.1.13.10 ity of [place] [facility] 4.2.7.2.686 Kilo as [phone] [facility] [address] 2022-06-23 2022-06-23 [facility] 1.2.840.114 [id number] Univers 08:13:16 23:59:00 Encounter Sendbekah ALBRECHT 350.1.13.10 ity of [place] [id number] [facility] [address] 2022-06-23 2022-06-23 [facility] 1.2.840.114 [id number] Univers 08:12:54 08:12:54 Encounter Sendbekah ALBRECHT 350.1.13.10 ity of [place] [phone] [facility] [address] 2022-06-23 2022-06-23 [facility] 1.2.840.114 [id number] Univers 08:12:41 08:12:41 Encounter Sendbekah ALBRECHT 350.1.13.10 it[place].2.[place] [phone] [facility] [address] 2022-06-23 2022-06-23 Outpatient R [facility] [id number] Univers 08:12:25 08:11:00 SENDIL ity of [facility] 2022-06-23 2022-06-23 [facility] 1.2.840.114 [id number] Univers 08:00:00 08:11:00 Encounter Sendil [facility] [place] 350.1.13.10 ity of [place] [id number] [facility] [address] 2022-06-21 2022-06-21 Outpatient R [facility] [id number] Univers 09:00:00 09:00:00 SENDIL ity of [facility] 2022-06-21 2022-06-21 Telephone [facility] 1.2.935.187 [id number] Univers 00:00:00 00:00:00 Ceci ALBRECHT 350.1.13.10 ity of [place] [phone] Oh dical NAL 059 [facility] 2022-06-21 2022-06-21 Orders Doctor LILLIANA 1.2.840.114 [id number] Univers 00:00:00 00:00:00 Only Unassigned, MACKENZIE 350.1.13.10 ity of [place] [facility] 4.2.7.2.686 Kilo as [phone] [facility] [address] 2022-06-20 2022-06-20 Hollow Tile Partition Erector Abdiel, Kristy Lab Main [facility] 1.2.8 40.114 [id number] Univers 07:45:00 08:00:00 Visit Ceci Lo 350.1.13. 10 ity of [place] [phone] Oh dical NAL 353 [facility] 2022-06-20 2022-06-20 Outpatient R [facility] [id number] Univers 07:45:00 07:45:00 SENDIL ity [facility] 2022-06-16 2022-06-16 Telephone [facility] 1.2.860.369 [id number] Univers 00:00:00 00:00:00 Ceci ALBRECHT 350.1.13.10 ity of [place] [phone] Oh dical NAL 059 [facility] 2022-06-16 2022-06-16 Telephone [facility] 1.2.908.165 [id number] Univers 00:00:00 00:00:00 Sendbekah ALBRECHT 350.1.13.10 ity of [place].2.[place] [id number] Oh dicma NAL 9 [facility] 2022-06-15 2022-06-15 Telephone [facility] 1.2.141.450 [id number] Univers 00:00:00 00:00:00 Sendbekah ALBRECHT 350.1.13.10 ity of [place] [id number] [address] 2022-06-13 2022-06-13 Outpatient R [facility]LECT [facility] [id number] Univers 15:30:00 15:30:00 [facility]22-[facility]-13 2022-06-13 Telephone [facility] 1.2.782.520 [id number] Univers 00:00:00 00:00:00 Ceci ALBRECHT 350.1.13.10 ity of [place] [id number] [place] [id number] [facility] 2022-06-11 2022-06-11 Hollow Tile Partition Erector Abdiel, Adc Lab Main [facility] 1.2.8 40.114 [id number] Univers 08:30:00 08:45:00 Visit Ceci Lo 350.1.13. 10 ity of [place] [phone] [facility] 353 [facility] 2022-06-11 2022-06-11 Outpatient R [facility] [id number] Univers 08:30:00 08:30:00 SENDIL ity [facility] 2022-06-10 2022-06-10 Hollow Tile Partition Erector Abdiel, Adc Lab Main [facility] 1.2.8 40.114 [id number] Univers 09:15:00 09:30:00 Visit Ceci Lo 350.1.13. 10 ity of [place] [phone] Oh dicma NAL 353 [facility] 2022-06-10 2022-06-10 Outpatient R TERESITA [facility] [id number] Univers 09:15:00 09:15:00 [facility] 2022-06-10 2022-06-10 Refill [facility] 1.2.840.114 [id number] Univers 00:00:00 00:00:00 [facility] 350.1.13.10 ity of [place] 4.2.7.2.686 Kilo as KRZYSZTOF?BLEA [id number] [address] OFFICE [facility] 2022-06-10 2022-06-10 Telephone [facility] 1.2.477.734 [id number] Univers 00:00:00 00:00:00 Sendbekah ALBRECHT 350.1.13.10 ity of [place] [id number] Oh dicma NAL 059 [facility] 2022-06-09 2022-06-09 Outpatient R [facility] [id number] Univers 13:30:00 14:26:56 SENDIL karen [facility] 2022-06-09 2022-06-09 Office [facility] 1.2.840.114 [id number] Univers 13:30:00 14:26:56 Visit Ceci ALBRECHT 350.1.13.10 ity of [place] [phone] Oh dical NAL 059 [facility] 2022-06-08 2022-06-08 Patient Jesus [facility] 1.2.840.114 [id number] Univers 00:00:00 00:00:00 Outreach [facility] 350.1.13.10 i ty of [place] 4.2.7.2.686 Kilo as KRZYSZTOF?BLEA [id number] [address] OFFICE [facility] 2022-06-07 2022-06-07 Outpatient R ANGELA CUNNINGHAM [facility] [id number] Univers 16:20:00 17:24:14 ANGELA CUNNINGHAM [facility] 2022-06-07 2022-06-07 Office Octavio [facility] 1.2.840.114 [id number] Univers 16:20:00 17:24:14 Visit [facility] 350.1.13.10 ity of [place] 4.2.7.2.686 Kilo as KRZYSZTOF?BLEA [id number] [address] OFFICE [facility] 2022-06-07 2022-06-07 Telephone Octavio [facility] 1.2.013.569 [id number] Univers 00:00:00 00:00:00 Angela HEALTH 350.1.13.10 ity of [place] 4.2.7.2.686 Kilo as KRZYSZTOF?BLEA [id number] [address] OFFICE [facility] 2022-06-07 2022-06-07 Orders Doctor LILLIANA 1.2.840.114 [id number] Univers 00:00:00 00:00:00 Only Unassigned, MACKENZIE 350.1.13.10 ity of [place] [facility] 4.2.7.2.686 Kilo as [id number] [address] 2022-06-02 2022-06-02 Outpatient ANGELA LIZ [facility] [id number] Univers 14:20:00 14:20:00 ANGELA CUNNINGHAM [facility] 2022-05-28 2022-06-01 In[facility] 20 [id number] [facility] 07:43:00 15:42:00 STELLA 2022-06-01 2022-06-01 Outpatient Braulio LO [facility] [id number] Univers 15:30:00 15:30:00 SENDIL karina [facility] 2022-05-25 2022-05-25 Outpatient R TERESITA [facility] [id number] Univers 14:00:00 15:24:40 SENDIL karina [facility] 2022-05-25 2022-05-25 Office [facility] 1.2.840.114 [id number] Univers 14:00:00 15:24:40 Visit Ceci BritanyGertrudeTyrellGertrude [facility] 350.1.13.10 ity of [place]SS[place] [id number] [facility] 059 [facility] 2022-05-17 2022-05-17 Outpatient R ANGELA CUNNINGHAM [facility] [id number] Univers 13:40:00 15:02:27 ANGELA CUNNINGHAM itkaren [facility] 2022-05-17 2022-05-17 Office [facility] 1.2.840.114 [id number] Univers 13:40:00 15:02:27 Visit [facility] 350.1.13.10 ity of [place] 4.2.7.2.686 Kilo as KRZYSZTOF?BLEA [id number] [address] 2022-05-17 2022-05-17 Orders Doctor LILLIANA 1.2.840.114 [id number] Univers 00:00:00 00:00:00 Only Unassigned, MACKENZIE 350.1.13.10 ity of [place] [facility] 4.2.7.2.686 Kilo as [id number] [address] 2022-04-23 2022-04-23 Refshruthi CunninghamREHOB[facility] 1.2.840.114 [id number] Univers 00:00:00 00:00:00 [facility] 350.1.13.10 ity of [place] 4.2.7.2.686 Kilo as KRZYSZTOF?BLEA [id number] [address] 2022-04-22 2022-04-22 Refshruthi CunninghamREHOB[facility] 1.2.840.114 [id number] Univers 00:00:00 00:00:00 Angela HEALTH 350.1.13.10 ity of [place] 4.2.7.2.686 Kilo as KRZYSZTOF?BLEA [phone] [address] 2022-04-15 2022-04-15 Outpatient R OCTAVIO [facility] [id number] Univers 09:20:00 09:20:00 ANGELA ity of [facility] 2022-04-12 2022-04-12 Orders Doctor LILLIANA 1.2.840.114 [id number] Univers 00:00:00 00:00:00 Only Unassigned, MACKENZIE 350.1.13.10 ity of [place] [facility] 4.2.7.2.686 Kilo as [id number] [address] 2022-04-11 2022-04-11 Outpatient WON SALDIVAR [facility] [id number] Univers 09:00:00 09:00:00 WON MATT karen [facility] 2022-04-08 2022-04-08 Outpatient Braulio WON MATT [facility] [id number] Univers 13:40:00 14:51:58 WON MATT karen [facility] 2022-04-08 2022-04-08 Office Jace [facility] 1.2.840.114 [id number] Univers 13:40:00 14:51:58 Visit [facility] 350.1.13.10 ity of [place] 4.2.7.2.686 Kilo as KRZYSZTOF?BLEA [id number] [address] MEDICAL OFFICE [facility] 2022-04-08 2022-04-08 Nurse Nurse, Thom-Sd Neurology [facility] 1. 2.840.114 [id number] [facility] 13:00:00 14:50:23 Visit Unknown, [facility] HEALTH 350.1.13.10 ity of [place] 4.2.7.2.686 Kilo as KRZYSZTOF?BLEA [id number] [address] MEDICAL OFFICE [facility] 2022-04-03 2022-04-03 Orders Doctor LILLIANA 1.2.840.114 [id number] Univers 00:00:00 00:00:00 Only Unassigned, MACKENZIE 350.1.13.10 ity of [place] [facility] 4.2.7.2.686 Kilo as [phone] [address] 2022-03-24 2022-03-24 Telephone [facility] 1.2.231.317 [id number] Univers 00:00:00 00:00:00 [place] HEALTH 350.1.13.10 ity of [place] 4.2.7.2.686 Kilo as KRZYSZTOF?BLEA [phone] Oh salvatore ESTRADA 044 [facility] OFFICE [facility] 2022-03-18 2022-03-18 Telephone Octavio [facility] 1.2.037.537 [id number] Univers 00:00:00 00:00:00 [facility] 350.1.13.10 ity of [place] 4.2.7.2.686 Kilo as KRZYSZTOF?BLEA [id number] Oh salvatore ESTRADA 044 [facility] OFFICE [facility] 2022-03-15 2022-03-15 Telephone [facility] 1.2.840.114 [id number] Univers 00:00:00 00:00:00 [facility] 350.1.13.10 ity of [place] 4.2.7.2.686 Kilo as KRZYSZTOF?BLEA [id number] Oh salvatore ESTRADA 092 [facility] OFFICE [facility] 2022-03-11 2022-03-11 Hollow 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 1.2.840.1 14 [id number] Univers 15:30:00 15:47:42 [facility] 350.1.13.10 [facility]y [facility] 4.2.7.2.686 Kilo as KRZYSZTOF?BLEA [id number] Oh salvatore ESTRADA 353 [facility] OFFICE [facility] 2022-03-11 2022-03-11 Outpatient R OCTAVIO [facility] [id number] Univers 13:40:00 15:35:06 ANGELA ity [facility] 2022-03-11 2022-03-11 Office [facility] 1.2.840.114 [id number] Univers 13:40:00 15:35:06 Visit [facility] 350.1.13.10 ity of [place] 4.2.7.2.686 Kilo as KRZYSZTOF?BLEA [id number] Oh salvatore ESTRADA 044 [facility] OFFICE [facility] 2022-03-11 2022-03-11 Office SamuelREHOB[facility] 1.2.840.114 [id number] Univers 08:00:00 09:15:[address] [facility] 350.1.13.10 it y of [place] 4.2.7.2.686 Kilo as KRZYSZTOF?BLEA [id number] Oh salvatore ESTRADA [address] MEDICAL OFFICE [facility] 2022-03-04 2022-03-04 Outpatient R NIRMALA [facility] [id number] Univers 10:30:00 10:30:00 ARASELI karen [facility] 2022-02-25 2022-02-25 Urgent Rea Natanora [facility] 1.2.840.114 [id number] Univers 17:40:00 18:00:00 Care Unknown, [facility] 350.1.13.10 ity [facility] 4.2.7.2.686 Kilo as KRZYSZTOF?BLEA [phone] Oh salvatore [address] MEDICAL OFFICE [facility] 2022-02-25 2022-02-25 Outpatient R REA [facility] [id number] Univers 17:40:00 17:40:00 [facility] 2022-[facility]-25 2022-02-25 Outpatient R OCTAVIO [facility] [id number] Univers 14:00:00 14:00:00 [facility] 2022-02-23 2022-02-23 Orders Doctor LILLIANA 1.2.840.114 [id number] Univers 00:00:00 00:00:00 Only Unassigned, MACKENZIE 350.1.13.10 ity of [place] [facility] 4.2.7.2.686 Kilo as [id number] [address] 2022-01-21 2022-01-21 Outpatient R OCTAVIO [facility] [id number] Univers 15:40:00 16:34:00 [facility] 2022-01-21 2022-01-21 [facility] 1.2.840.114 [id number] Univers 15:40:00 16:34:00 Visit [facility] 350.1.13.10 ity of [place] 4.2.7.2.686 Kilo as KRZYSZTOF?BLEA [id number] Oh salvatore [address] MEDICAL OFFICE [facility] 2021-12-31 2021-12-31 Outpatient R OCTAVIO [facility] [id number] Univers 11:20:00 11:20:00 ANGELA ity [facility] 2021-12-31 2021-12-31 Orders Doctor LILLIANA 1.2.840.114 [id number] Univers 00:00:00 00:00:00 Only Unassigned, MACKENZIE 350.1.13.10 [facility] 4.2.7.2.686 Kilo as [id number] [address] 2021-12-24 2021-12-24 Outpatient R ODILON [facility] [id number] Univers 14:30:00 15:49:08 CHARY ity [facility] 2021-12-24 2021-12-24 Office [facility]RE[facility] 1.2.840.114 [id number] Univers 14:30:00 15:49:08 Visit Chary [facility] 350.1.13.10 i ty of [place] 4.2.7.2.686 Kilo as KRZYSZTOF?BLEA [id number] [address] MEDICAL OFFICE [facility] 2021-12-23 2021-12-23 Abstract [facility] 1.2.840.114 [id number] Univers 00:00:00 00:00:00 Angela HEALTH 350.1.13.10 ity of [place] 4.2.7.2.686 Kilo as KRZYSZTOF?BLEA [phone] [address] MEDICAL OFFICE [facility] 2021-12-17 2021-12-17 Outpatient R BETO [facility] [id number] Univers 11:00:00 11:00:00 DANIEL collins o f [facility] 2021-12-17 2021-12-17 Refill [facility] 1.2.840.114 [id number] Univers 00:00:00 00:00:00 Angela HEALTH 350.1.13.10 ity of [place] 4.2.7.2.686 Kilo as KRZYSZTOF?BLEA [id number] [address] MEDICAL OFFICE [facility] 2021-12-10 2021-12-10 Outpatient R [facility] [id number] Univers 09:20:00 09:20:00 ANGELA ity [facility] 2021-12-10 2021-12-10 Outpatient R OCTAVIO [facility] [id number] Univers 09:20:00 09:20:00 [facility] 2021-12-03 2021-12-03 Outpatient R OCTAVIO [facility] [id number] Univers 13:40:00 14:38:59 [facility] 2021-12-03 2021-12-03 Office [facility] 1.2.840.114 [id number] Univers 13:40:00 14:38:59 Visit [facility] 350.1.13.10 ity of [place] 4.2.7.2.686 Kilo as KRZYSZTOF?BLEA [id number] [address] OFFICE [facility] 2021-11-27 2021-11-27 Refill [facility] 1.2.840.114 [id number] Univers 00:00:00 00:00:00 [facility] 350.1.13.10 ity of [facility] 4.2.7.2.686 Kilo as KRZYSZTOF?BLEA [id number] [address] OFFICE [facility] 2021-11-26 2021-11-26 Outpatient WON SALDIVAR [facility] [id number] Univers 15:40:00 16:24:04 WON MATT [facility] 2021-11-26 2021-11-26 [facility] [id number] [id number] Univers 15:40:00 16:24:04 Visit Won Ponce [facility] [id number] ity of [place] 4.2.7.2.686 Kilo as KRZYSZTOF?BLEA [phone] [facility] [address] MEDICAL OFFICE [facility] 2021-11-19 2021-11-19 Outpatient WON SALDIVAR [facility] [id number] Univers 09:57:12 23:59:00 WON MATT [facility] 2021-11-19 2021-11-19 [facility] [id number] Univers 09:57:12 23:59:00 Encounter Won Serra [place] [id number] it[place] [phone] [facility] [address] 2021-11-18 2021-11-18 Orders Doctor LILLIANA [id number] [id number] Univers 00:00:00 00:00:00 Only Unassigned, MACKENZIE 350.1.13.10 ity of [facility] [id number] Kilo as [phone] [facility] [address] 2021-11-09 2021-11-09 [facility] [id number] Univers 13:00:00 13:00:00 DANIEL collins o f [facility] 2021-11-05 2021-11-05 Outpatient R [facility] [id number] Univers 10:40:00 10:40:00 [facility] 2021-11-02 2021-11-02 Outpatient WON SALDIVAR [facility] [id number] Univers 13:00:00 14:14:42 WON MATT [facility] 2021-11-02 2021-11-02 Office [facility] [id number] [id number] Univers 13:00:00 14:14:42 Visit Won [facility] 350.1.13.10 ity of [place] 4.2.7.2.686 Kilo as KRZYSZTOF?BLEA [phone] [address] MEDICAL OFFICE BUILDING 2021-11-01 2021-11-01 Orders Doctor LILLIANA [id number] [id number] Univers 00:00:00 00:00:00 Only Unassigned, MACKENZIE 350.1.13.10 ity of [facility] 4.2.7.2.686 Kilo as [phone] [address] 2021-10-28 2021-10-28 S[facility] [id number] Univers 00:00:00 00:00:00 Formerly [facility] [id number] ity of [facility] [id number] Kilo as KRZYSZTOF?BLEA [phone] [address] OFFICE [facility] 2021-10-26 2021-10-26 Telephone [facility] [id number] Univers 00:00:00 00:00:00 Angela [facility] [id number] ity of [place] [id number] Kilo as KRZYSZTOF?BLEA [phone] [address] OFFICE [facility] 2021-10-25 2021-10-25 Outpatient [facility] [id number] Univers 14:40:00 15:55:58 ANGELA ity [facility] 2021-10-25 2021-10-25 Office [facility] 1.2.840.114 [id number] Univers 14:40:00 15:55:58 Visit [facility] 350.1.13.10 ity of [facility] 4.2.7.2.686 Kilo as KRZYSZTOF?BLEA [phone] [address] OFFICE [facility] 2021-10-25 2021-10-25 Telephone [facility] 1.2.702.578 [id number] Univers 00:00:00 00:00:00 Angela HEALTH 350.1.13.10 ity of [facility] 4.2.7.2.686 Kilo as KRZYSZTOF?BLEA [phone] [address] OFFICE [facility] 2021-10-25 2021-10-25 Orders Doctor LILLIANA 1.2.840.114 [id number] Univers 00:00:00 00:00:00 Only Unassigned, MACKENZIE 350.1.13.10 ity of [place] [facility] 4.2.7.2.686 Kilo as [phone] [address] 2021-10-20 2021-10-20 Telephone [facility] 1.2.961.148 [id number] Univers 00:00:00 00:00:00 Angela HEALTH 350.1.13.10 ity of [place] 4.2.7.2.686 Kilo as KRZYSZTOF?BLEA [id number] [address] OFFICE [facility] 2021-09-24 2021-09-24 Outpatient R [facility] [id number] Univers 08:40:00 08:40:00 ANGELA collins [facility] 2021-09-24 2021-09-24 Outpatient Braulio CUNNINGHAM [facility] [id number] Univers 08:30:00 08:30:00 ANGELA collins [facility] 2021-09-17 2021-09-17 Outpatient R WON MATT [facility] [id number] Univers 11:00:00 11:00:00 WON MATT [facility] 2021-09-13 2021-09-13 Telephone [facility] 1.2.961.444 [id number] Univers 00:00:00 00:00:00 Angela HEALTH 350.1.13.10 ity of [place] 4.2.7.2.686 Kilo as KRZYSZTOF?BLEA [phone] [address] MEDICAL OFFICE [facility] 2021-09-13 2021-09-13 Orders Doctor LILLIANA 1.2.840.114 [id number] Univers 00:00:00 00:00:00 Only Unassigned, MACKENZIE 350.1.13.10 ity of [place] [facility] 4.2.7.2.686 Kilo as [phone] [address] 2021-09-10 2021-09-10 Outpatient R OCTAVIO [facility] [id number] Univers 16:00:00 17:05:49 ANGELA karina [facility] 2021-09-10 2021-09-10 Office [facility] 1.2.840.114 [id number] Univers 16:00:00 17:05:49 Visit [place] HEALTH 350.1.13.10 ity of [place] 4.2.7.2.686 Kilo as KRZYSZTOF?BLEA [phone] [address] MEDICAL OFFICE [facility] 2021-09-05 2021-09-05 Telephone Odilon [facility] 1.2.440.924 [id number] Univers 00:00:00 00:00:00 Chary A HEALTH 350.1.13.10 i ty of [facility] 4.2.7.2.686 Kilo as KRZYSZTOF?BLEA [phone] Me [address] OFFICE [facility] 2021-09-03 2021-09-03 Hollow Tile Partition Erector Lab, Ang - Db [facility] 1.2.840.1 14 [id number] Univers 07:45:00 08:09:03 Visit Octavio [facility] 350.1.13.10 ity of [facility] 4.2.7.2.686 Kilo as KRZYSZTOF?BLEA [phone] [address] OFFICE [facility] 2021-09-03 2021-09-03 Outpatient R [facility] [id number] Univers 07:45:00 07:45:00 [facility] 2021-09-02 2021-09-02 Telephone [facility] 1.2.732.779 [id number] Univers 00:00:00 00:00:00 [facility] 350.1.13.10 ity of [place] 4.2.7.2.686 Kilo as KRZYSZTOF?BLEA [phone] [address] OFFICE [facility] 2021-08-27 2021-08-27 Hollow Tile Partition Erector Lab, Ang - Db [facility] 1.2.840.1 14 [id number] Univers 15:30:00 15:45:00 Visit [facility] 350.1.13.10 ity of [place] 4.2.7.2.686 Kilo as KRZYSZTOF?BLEA [phone] [address] OFFICE [facility] 2021-08-27 2021-08-27 Outpatient R NADINEKarenSELECT [facility]ICAL [facility] [id number] Univers 14:00:00 15:19:02 [facility] 2021-08-27 2021-08-27 Office [facility] 1.2.840.114 [id number] Univers 14:00:00 15:19:02 Visit [facility] 350.1.13.10 ity of [place] 4.2.7.2.686 Kilo as KRZYSZTOF?BLEA [phone] [address] OFFICE [facility] 2021-08-20 2021-08-20 Refill [facility] 1.2.840.114 [id number] Univers 00:00:00 00:00:00 Chary A HEALTH 350.1.13.10 i ty of [place] 4.2.7.2.686 Kilo as KRZYSZTOF?BLEA [phone] [facility] 044 [facility] OFFICE [facility] 2021-07-09 2021-07-09 Outpatient R [facility] [id number] Univers 16:00:00 17:29:20 [facility] 2021-07-09 2021-07-09 Office [facility] 1.2.840.114 [id number] Univers 16:00:00 17:29:20 Visit Chary Goyal HEALTH 350.1.13.10 i ty of [place] 4.2.7.2.686 Kilo as KRZYSZTOF?BLEA [phone] [address] OFFICE [facility] 2021-07-09 2021-07-09 Outpatient R [facility] [id number] Univers 16:00:00 17:29:20 [facility] [place] 2021-06-09 2021-06-09 Case Rea [facility] 1.2.840.114 [id number] Univers 00:00:00 00:00:00 Management Rania HEALTH 350.1.13.10 ity of [place] 4.2.7.2.686 Kilo as KRZYSZTOF?BLEA [phone] [address] OFFICE [facility] 2021-06-09 2021-06-09 Tapan Mccartney [facility] 1.2.840.114 [id number] Univers 00:00:00 00:00:00 (Out) Ree HEALTH 350.1.13.10 it y of [place] 4.2.7.2.686 Kilo as KRZYSZTOF?BLEA [id number] [address] MEDICAL OFFICE BUILDING 2021-06-08 2021-06-08 Laboratory Only, Ang Db Test [facility] 1.2.8 40.114 [id number] Univers 09:15:00 09:30:00 Only Green, Tera HEALTH 350.1.13.10 ity of [place] 4.2.7.2.686 Kilo as KRZYSZTOF?BLEA [phone] [address] MEDICAL OFFICE BUILDING 2021-06-08 2021-06-08 Outpatient R ANDREW [facility] [id number] Univers 09:15:00 09:15:00 TERA collins of [facility] 2021-05-17 2021-05-17 Outpatient R JOEL [facility] [id number] Univers 13:30:00 13:30:00 karina NAYAK [facility] 2021-05-13 2021-05-13 Orders Doctor LILLIANA 1.2.840.114 [id number] Univers 00:00:00 00:00:00 Only Unassigned, MACKENZIE 350.1.13.10 ity of [place] [facility] 4.2.7.2.686 Kilo as [phone] [address] 2021-05-03 2021-05-03 Telephone [facility] 1.2.649.514 [id number] Univers 00:00:00 00:00:00 Amaya HEALTH 350.1.13.10 it y of [place] 4.2.7.2.686 Kilo as KRZYSZTOF?BLEA [phone] [address] OFFICE [facility] 2021-04-30 2021-04-30 Telephone [facility] 1.2.693.072 [id number] Univers 00:00:00 00:00:00 Gerardo HEALTH 350.1.13.10 it y of [place] 4.2.7.2.686 Kilo as KRZYSZTOF?BLEA [id number] [address] OFFICE [facility] 2021-04-29 2021-04-29 Nurse LILLIANA Jain 1.2.840.114 [id number] Univers 00:00:00 00:00:00 Triage Pamela T M[place] 350.1.13.10 it y of [facility] 4.2.7.2.686 Kilo as [phone] [facility] [address] 2021-04-29 2021-04-29 Isa Hobson[facility] 1.2.840.114 [id number] Univers 00:00:00 00:00:00 Wondiful A [place] 350.1.13.10 ity of [place] PROF[place] [phone] Oh dical NAL [address] [place] [address] 2021-04-23 2021-04-23 Outpatient R BETO, [facility] [id number] Univers 09:00:00 09:00:00 DANIEL ity o f [facility] 2021-04-14 2021-04-14 Outpatient R JOCE [facility] [id number] Univers 09:30:00 09:30:00 WONDIFUL ity o f [facility] 2021-04-14 2021-04-14 Outpatient R JOCE, [facility] [id number] Univers 09:30:00 09:30:00 WONDIFUL ity o f [facility] 2021-04-05 2021-04-05 Outpatient R JEANETH, [facility] [id number] Univers 10:30:00 10:30:00 JESSICA ity of [facility] 2021-04-05 2021-04-05 Orders Doctor TIJERINA 1.2.840.114 [id number] Univers 00:00:00 00:00:00 Only Unassigned, MACKENZIE 350.1.13.10 ity of [place] [facility] 4.2.7.2.686 Kilo as [phone] [address] 2021-03-22 2021-03-22 Outpatient R [facility] [id number] Univers 11:30:00 12:40:29 AMAYA ity of [facility] 2021-03-22 2021-03-22 Office [facility] 1.2.840.114 [id number] Univers 11:30:00 12:40:29 Visit Amaya HEALTH 350.1.13.10 it y of [place] 4.2.7.2.686 Kilo as KRZYSZTOF?BLEA [phone] Oh dicma KNEY [address] [place] [address] MEDICAL OFFICE BUILDING 2021-03-21 2021-03-21 Refshruthi [facility]sonRE[facility] 1.2.840.114 [id number] Univers 00:00:00 00:00:00 Wondiful A HEALTH 350.1.13.10 ity of [facility] 4.2.7.2.686 Kilo as PROFESSIO [phone] Oh dic[address] OFFICE BUILDING ONE 2021-02-22 2021-02-22 Office Jeaneth [facility] 1.2.840.114 [id number] Univers 14:30:00 15:00:00 Visit Jessica R Y HEALTH 350.1.13.10 it[place] [phone] [address] 2021-02-22 2021-02-22 Outpatient R DON, [facility] [id number] Univers 14:30:00 14:30:00 JESSICA ity [facility] 2021-02-22 2021-02-22 Outpatient R DON, [facility] [id number] Univers 14:30:00 14:30:00 JESSICA ity [facility] 2021-01-25 2021-01-25 Refill [facility] 1.2.840.114 [id number] Univers 00:00:00 00:00:00 Wondiful A HEALTH 350.1.13.10 ity of [place] 4.2.7.2.686 [place]ilo [place] PROFESSIO [phone] [address] OFFICE [facility] ONE 2021-01-21 2021-01-21 Case [facility] 1.2.840.114 [id number] Univers 00:00:00 00:00:00 Management Wondiful A HEALTH 350.1.13.10 ity of [place] 4.2.7.2.686 Kilo as KRZYSZTOF?BLEA [phone] [address] OFFICE BUILDING 2021-01-21 2021-01-21 Beto [facility] 1.2.840.114 [id number] Univers 00:00:00 00:00:00 Management Wondiful A HEALTH 350.1.13.10 ity of [place] 4.2.7.2.686 Kilo as KRZYSZTOF?BLEA [phone] [address] OFFICE [facility] 2021-01-20 2021-01-20 Outpatient R TERESITA [facility] [id number] Univers 09:25:28 23:59:00 SENDIL ity [facility] 2021-01-20 2021-01-20 Hospital Austin Hobson [facility] 1.2.8 40.114 [id number] Univers 09:00:00 23:59:00 Encounter Ceci Lo [place] 350.1.1 3.10 ity of [place] [id number] [address] 2021-01-15 2021-01-15 Outpatient R [facility] [id number] Univers 10:10:00 10:10:00 WONDIFUL ity o f [facility] 2021-01-15 2021-01-15 Imm/Inj Vaccine, Ang Db Cbc Fam [facility] 1. 2.840.114 [id number] Univers 08:47:34 08:57:34 Visit Austin Hobson HEALTH 350.1.13.1 0 ity of [place] 4.2.7.2.686 Kilo as KRZYSZTOF?BLEA [phone] [facility] ESTRADA [address] MEDICAL OFFICE [facility] 2021-01-15 2021-01-15 Hollow Tile Partition Erector Lab, Ang - Db [facility] 1.2.840.1 14 [id number] Univers 08:20:53 08:35:53 Visit Austin Hobson HEALTH 350.1.13.1 0 ity of [place] 4.2.7.2.686 Kilo as KRZYSZTOF?BLEA [phone] [facility] ESTRADA [address] MEDICAL OFFICE [facility] 2021-01-14 2021-01-14 Office Joce [facility] 1.2.840.114 [id number] Univers 13:02:10 13:52:29 Visit Austin Goyal HEALTH 350.1.13.10 ity of [place] 4.2.7.2.686 Kilo as KRZYSZTOF?BLEA [phone] [facility] ANDREA [address] [place] [address] OFFICE [facility] 2021-01-14 2021-01-14 Outpatient Braulio JOCE [facility] [id number] Univers 13:00:00 13:52:29 WONDIFUL ity o f [facility] 2020-12-04 2020-12-04 Hospital Joce [facility] 1.2.016.966 [id number] Univers 12:31:25 23:59:00 Encounter Wondiful A [place] 350.1.13.10 ity of [place] [phone] [facility] [address] 2020-12-04 2020-12-04 Outpatient R JOCE NVDELIA [facility] [id number] [facility] 10:15:00 12:44:29 WONDIFUL ity o f [facility] 2020-12-04 2020-12-04 Office [facility] 1.2.840.114 [id number] [facility] 10:12:12 12:44:29 Visit Wondiful A HEALTH 350.1.13.10 ity of [facility] 4.2.7.2.686 Kilo as KRZYSZTOF?BLEA [phone] [address] MEDICAL OFFICE [facility] 2020-10-16 2020-10-16 Patient Joce [facility] 1.2.840.114 [id number] Univers 00:00:00 00:00:00 Secure Msg Wondiful A Health 350.1.13.10 ity of [place] 4.2.7.2.686 [place]ilo [place] Krzysztof?Blea [phone] [address] Office [facility] 2020-10-13 2020-10-13 Telephone Joce [facility] 1.2.840.114 [id number] Univers 00:00:00 00:00:00 Wondiful A Health 350.1.13.10 ity of [place] 4.2.7.2.686 [place]ilo as Krzysztof?Blea [phone] [address] Medical Office [facility] 2020-10-08 2020-10-08 Patient Doctor LILLIANA 1.2.840.114 [id number] Univers 00:00:00 00:00:00 Secure Msg Unassigned, MACKENZIE 350.1.13.10 ity of [place] [facility] 4.2.7.2.686 Kilo as [phone] [facility] [address] 2020-10-08 2020-10-08 Refill [facility] 1.2.840.114 [id number] Univers 00:00:00 00:00:00 Wondiful A Health 350.1.13.10 ity of [place] 4.2.7.2.686 [place]ilo as Krzysztof?Blea [phone] Oh salvatore estrada [address] [place] [address] Medical Office Building 2020-10-08 2020-10-08 Telephone Joce [facility] 1.2.840.114 [id number] Univers 00:00:00 00:00:00 Wondiful A Health 350.1.13.10 ity of [place] 4.2.7.2.686 [place]ilo as Krzysztof?Blea [phone] Oh salvatore estrada [address] [place] [address] Medical Office Building 2020-10-06 2020-10-06 Outpatient R JOCE [facility] [id number] Univers 09:00:00 09:00:00 WONDIFUL ity o f [facility] 2020-10-05 2020-10-05 Office [facility] 1..840.114 [id number] Univers 11:08:16 12:09:41 Visit Wondiful A Health 350.1.13.10 ity of [place] 4.2.7.2.686 [place]ilo as Krzysztof?Blea [phone] Oh salvatore [address] Medical Office Building 2020-10-05 2020-10-05 Outpatient R JOCE [facility] [id number] Univers 11:15:00 11:15:00 WONDIFUL ity o f [facility] 2020-09-15 2020-09-15 Outpatient R JOCE [facility] [id number] Univers 14:30:00 14:30:00 WONDIFUL ity o f [facility] 2020-08-06 2020-08-06 Outpatient R BETO [facility] [id number] Univers 00:00:00 00:00:00 QIANGJUN ity o f [facility] 2020-07-20 2020-07-20 Hollow Tile Partition Erector Lab, Adc [facility] Pob I [facility] 1.. 840.114 [id number] Univers 10:43:24 11:03:24 Visit Daniel P[facility]rez [facility] 350.1.13.10 ity of [place] 4.2.7.2.686 [place] Professio [phone] Oh salvatore [address] Office Building One 2020-07-20 2020-07-20 Office [facility] 1.2.840.114 [id number] Univers 09:55:53 10:27:33 Visit Daniel Albrecht 350.1.13.10 ity of [place].2.[place] Profess[place] [phone] [facility] 059 [facility] 2020-07-20 2020-07-20 Outpatient R [facility] [id number] Univers 10:00:00 10:00:00 DANIEL ity o f [facility] 2020-06-02 2020-06-02 Telephone [facility] 1.2.840.114 [id number] Univers 00:00:00 00:00:00 [facility] 350.1.13.10 ity of [place] 4.2.7.2.686 [place]ilo [place] Professio [phone] [facility] [address] [facility] 2020-06-01 2020-06-01 Refill [facility] 1.2.840.114 [id number] Univers 00:00:00 00:00:00 Daniel Albrecht 350.1.13.10 ity of [place].2.[place] Profess[place] [phone] [facility] 059 [facility] 2020-05-18 2020-05-18 Orders Doctor LILLIANA 1.2.840.114 [id number] Univers 00:00:00 00:00:00 Only Unassigned, MACKENZIE 350.1.13.10 [facility] 4.2.7.2.686 Kilo as [phone] [address] 2020-04-29 2020-04-29 Telephone [facility] 1.2.140.220 [id number] 00:00:00 00:00:00 Daniel [place] 350.1.13.10 [place] 4.2.7.2.686 Professio [phone] [address] 2020-04-29 2020-04-29 Refill [facility] 1.2.840.114 [id number] 00:00:00 00:00:00 Daniel [place] 350.1.13.10 [place] 4.2.7.2.686 Professio [phone] [address] 2020-04-29 2020-04-29 Telephone [facility] 1.2.090.019 [id number] Univers 00:00:00 00:00:00 Qiashayne [place] 350.1.13.10 ity of [place] [phone] [address] 2020-04-29 2020-04-29 Refill [facility] 1.2.840.114 [id number] [facility] 00:00:00 00:00:00 Daniel [place] 350.1.13.10 ity of [place].2.[place] Profess[place] [phone] [address] 2020-04-25 2020-04-25 Urgent Provider, [facility] 1.2.941.585 [id number] 10:12:47 10:32:47 Care Ang [facility] 350.1.13.10 Care [place] 4.2.7.2.686 Professio [phone] nal [facility] Office [facility] One 2020-04-25 2020-04-25 Urgent Provider, Ang [facility] 1.2.840.114 [id number] [facility] 10:12:47 10:32:47 Care Mine No [facility] 350.1.13.10 ity of [place] 4.2.7.2.686 [place]ilo as Professio [phone] [address] Office Building One 2020-04-25 2020-04-25 Outpatient R ONEAL [facility] [id number] Univers 10:20:00 10:20:00 MINE mitchell [facility] 2020-04-15 2020-04-15 Telephone [facility] 1.2.840.114 [id number] 00:00:00 00:00:00 Wondiful A Health 350.1.13.10 [place] 4.2.7.2.686 Professio [phone] [place] [address] Office Building One 2020-04-15 2020-04-15 Telephone Joce [facility] 1.2.840.114 [id number] Univers 00:00:00 00:00:00 Wondiful A Health 350.1.13.10 ity of [place] 4.2.7.2.686 [place] Professio [phone] [address] Office [facility] 2020-03-07 2020-03-07 Patient Tyler [facility] 1.2.840.114 [id number] 00:00:00 00:00:00 Outreach Ethan PRIMARY 350.1.13.10 [place] CARE 4.2.7.2.686 PAVILLION [phone] [facility] 2020-03-07 2020-03-07 Patient Tyler [facility] 1.2.840.114 [id number] Univers 00:00:00 00:00:00 Outreach Ethan PRIMARY 350.1.13.10 i ty of [place]2.[place].2.[place]AV[place] [id number] [address] 2020-01-16 2020-01-16 Outpatient R [facility] [id number] Univers 16:30:00 16:30:00 WONDIFUL ity o f [facility] 2020-01-16 2020-01-16 Telemedici [facility] 1.2.840.114 [id number] 16:09:25 16:24:25 ne Visit Wondiful A Health 350.1.13.10 [place] 4.2.7.2.686 Professio [phone] [place] [address] Office [facility] 2020-01-16 2020-01-16 Telemedici [facility] 1.2.840.114 [id number] [facility] 16:09:25 16:24:25 ne Visit Wondiful A Health 350.1.13.10 ity of [place] 4.2.7.2.686 [place] as Professio [phone] [address] Office [facility] 2020-01-12 2020-01-12 Orders Doctor LILLIANA 1.2.840.114 [id number] 00:00:00 00:00:00 Only Unassigned, MACKENZIE 350.1.13.10 [place] [facility] 4.2.7.2.686 [id number] 009 2020-01-12 2020-01-12 Orders Doctor LILLIANA 1.2.840.114 [id number] Univers 00:00:00 00:00:00 Only Unassigned, MACKENZIE 350.1.13.10 ity of [place] [facility] 4.2.7.2.686 Kilo as [phone] [address] 2019-12-16 2019-12-16 Case Joce [facility] 1.2.840.114 [id number] 00:00:00 00:00:00 Management Wondiful A Health 350.1.13.10 [place] 4.2.7.2.686 Professio [phone] nal [facility] Office Building One 2019-12-16 2019-12-16 Case Joce [facility] 1.2.840.114 [id number] Univers 00:00:00 00:00:00 Management Wondiful A Health 350.1.13.10 ity of [place] 4.2.7.2.686 [place] as Professio [phone] Oh dical [address] Office Building One 2019-12-12 2019-12-12 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 10 ity of [place] 4.2.7.2.686 [facility] [phone] [address] 2019-12-12 2019-12-12 Outpatient R [facility] [id number] Univers 08:30:00 08:30:00 ity of [facility] 2019-12-12 2019-12-12 Telephone Joce [facility] 1.2.840.114 [id number] 00:00:00 00:00:00 [facility] 350.1.13.10 [place] 4.2.7.2.686 Professio [phone] [place] [address] Office Building One 2019-12-12 2019-12-12 [place] JoceJOHN 1.2.840.114 [id number] Univers 00:00:00 00:00:00 [facility] 350.1.13.10 ity of [place] 4.2.7.2.686 [place] Professio [phone] [address] Office Building One 2019-12-05 2019-12-05 Orders Doctor LILLIANA 1.2.840.114 [id number] 00:00:00 00:00:00 Only Unassigned, MACKENZIE 350.1.13.10 [facility] 4.2.7.2.686 [id number] [id number] 2019-12-05 2019-12-05 Orders Doctor LILLIANA 1.2.840.114 [id number] Univers 00:00:00 00:00:00 Only Unassigned, MACKENZIE 350.1.13.10 ity of [facility] 4.2.7.2.686 [place] as [phone] [address] 2019-11-14 2019-11-14 [facility] KIARA Hobson 1.2.840.114 [id number] 00:00:00 00:00:00 Management [facility] 350.1.13.10 [place] 4.2.7.2.686 Professio [phone] [place] [address] Office Building One 2019-11-14 2019-11-14 JOHN Mclaughlin 1.2.840.114 [id number] Univers 00:00:00 00:00:00 Management [facility] 350.1.13.10 ity of [place] 4.2.7.2.686 [place] Professio [phone] [address] Office Building One 2019-11-13 2019-11-13 JOHN Mclaughlin 1.2.840.114 [id number] 00:00:00 00:00:00 Management [facility] 350.1.13.10 [place] 4.2.7.2.686 Professio [phone] [place] [address] Office Building One 2019-11-13 2019-11-13 Case Joce [facility] 1.2.840.114 [id number] [facility] 00:00:00 00:00:00 Management [facility] 350.1.13.10 ity of [place] 4.2.7.2.686 [place] as Professio [phone] [address] Office Building One 2019-11-08 2019-11-08 Hollow Tile Partition Erector Lab, Adc Fam Pob I [facility] 1.2. 840.114 [id number] [facility] 11:16:17 11:26:17 Visit [facility] 350.1.13.1 0 ity of [place] 4.2.7.2.686 [place] Professio [phone] [address] Office Building One 2019-11-08 2019-11-08 Office Joce [facility] 1.2.840.114 [id number] 09:44:58 11:00:23 Visit [facility] 350.1.13.10 [place] 4.2.7.2.686 Professio [phone] [place] [address] Office Building One 2019-11-08 2019-11-08 Office Joce [facility] 1.2.840.114 [id number] [facility] 09:44:58 11:00:23 Visit [facility] 350.1.13.10 ity of [place] 4.2.7.2.686 [place] Professio [phone] [address] Office [facility] One 2019-11-08 2019-11-08 Outpatient R JOCE [facility] [id number] [facility] 08:45:00 08:45:00 WONDIFUL ity o f [facility] 2019-09-02 2019-11-04 Telemedici Joce [facility] 1.2.840.114 [id number] [facility] 09:09:51 09:25:19 ne Visit Wondiful A [place] 350.1.13.10 [place] [phone] [address] 2019-11-04 2019-11-04 Hollow Tile Partition Erector Lab, Adc Fam Pob I [facility] 1.2. 840.114 [id number] [facility] 09:02:55 09:12:55 Visit Joce [facility] 350.1.13.1 0 ity of [place] 4.2.7.2.686 [place] Professio [phone] [address] Office [facility] One 2019-11-04 2019-11-04 Outpatient R JOCE [facility] [id number] Univers 09:00:00 09:00:00 WONDIFUL ity o f [facility] 2019-10-30 2019-10-30 [facility] 1.2.840.114 [id number] [facility] 00:00:00 00:00:00 [facility] 350.1.13.10 ity of [place] 4.2.7.2.686 [place] Professio [phone] [address] 2019-10-25 2019-10-25 Refill [facility] 1.2.840.114 [id number] [facility] 00:00:00 00:00:00 [facility] 350.1.13.10 ity of [place] 4.2.7.2.686 [place] Professio [phone] [address] 2019-10-25 2019-10-25 Refshruthi Hobson [facility] 1.2.840.114 [id number] Univers 00:00:00 00:00:00 [facility] 350.1.13.10 ity of [place] 4.2.7.2.686 [place] Professio [phone] [address] Office [facility] 2019-10-07 2019-10-07 Orders Doctor LILLIANA 1.2.840.114 [id number] Univers 00:00:00 00:00:00 Only Unassigned, MACKENZIE 350.1.13.10 ity of [facility] 4.2.7.2.686 Kilo as [phone] [address] 2019-09-30 2019-09-30 Office [facility] 1.2.840.114 [id number] Univers 09:15:37 09:55:50 Visit Daniel Albrecht 350.1.13.10 it[place] of [place] [phone] Oh dical nal 059 [facility] 2019-09-30 2019-09-30 Outpatient R BETO, [facility] [id number] Univers 09:40:00 09:40:00 QIANGJUN ity o f [facility] 2019-09-02 2019-09-02 Outpatient R JOCE, [facility] [id number] Univers 08:45:00 08:45:00 WONDIFUL ity o f [facility] 2019-08-30 2019-08-30 Telephone OdilonLILLIANA [place] 1..[phone] 6463 Univers 00:00:00 00:00:00 Chary MANN 350.1.13.[address] [facility] 4.2.7.2.686 [place] as [phone] [address] 2019-08-29 2019-08-29 Laboratory Lab, [facility] Fam Pob I [facility] .. 840.114 [id number] Univers 11:32:55 11:52:55 Only Lyla, Amaya Alkermes 350.1.13.10 ity of [place] 4.2.7.2.686 [place] Professio [phone] Oh dicma nal [address] [place] Office [facility] One 2019-08-29 2019-08-29 Outpatient R LYLA, [facility] [id number] Univers 11:40:00 11:40:00 AMAYA ity of [facility] 2019-08-29 2019-08-29 Urgent Lab, [facility] ..840.114 [id number] 11:00:00 11:20:00 Care Fam Pob I Health 350.1.13.10 [place] 4.2.7.2.686 Professio [phone] nal 044 Office Building One 2019-08-29 2019-08-29 Urgent Lab, [facility] Fam Pob I [facility] 1.2.840 .114 [id number] Univers 11:00:00 11:20:00 Care Lyla, Am[facility] Health 350.1.13.10 ity of [place] 4.2.7.2.686 [place] Professio [phone] [address] 2019-08-29 2019-08-29 Outpatient R [facility] [id number] Univers 11:00:00 11:00:00 ity of [facility] 2019-08-29 2019-08-29 Letter Doctor LILLIANA 1.2.840.114 [id number] Univers 00:00:00 00:00:00 (Out) Unassigned, MACKENZIE 350.1.13.10 ity of [facility] 4.2.7.2.686 [place] as [phone] [address] 2019-08-20 2019-08-20 Refill [facility] 1.2.840.114 [id number] Univers 00:00:00 00:00:00 [facility] 350.1.13.10 ity of [place] 4.2.7.2.686 [place] Professio [phone] [address] 2019-07-30 2019-07-30 Office Kedar [facility] Encounter / Legacy 00:00:00 00:00:00 Visit Renata [id number] Com natalee [id number] [facility] 2019-07-11 2019-07-11 Outpatient [facility] [id number] Univers 09:15:00 09:15:00 WONDIFUL ity o f [facility] 2019-07-03 2019-07-03 Telephone [facility] 1.2.840.114 [id number] Univers 00:00:00 00:00:00 [place] A [place] 350.1.13.10 [place] [phone] [address] 2019-07-01 2019-07-01 Office Wilfredo [facility] Encounter/ Legacy 00:00:00 00:00:00 Visit Mirella [id number] Katiuska De La Cruz [id number] [facility] 2019-07-01 2019-07-01 Office Wilfredo [facility] Encounter/ Legacy 00:00:00 00:00:00 Visit Mirella [id number] Katiuska De La Cruz [id number] [facility] 2019-07-01 2019-07-01 Office WilfredoMirella willingham [facility] Encounter/ Legacy 00:00:00 00:00:00 Visit Shy Miller [id number] 308060 Health 2019-07-01 2019-07-01 Telephone Joce NVDELIA 1.2.840.114 [id number] Univers 00:00:00 00:00:00 [facility] 350.1.13.10 ity of [place] 4.2.7.2.686 [place] Professio [phone] [address] Office [facility] 2019-06-25 2019-06-25 Office Wilfredo, [facility] Encounter/ Legacy 00:00:00 00:00:00 Visit Mirella [id number] Com natalee De La Cruz [id number] [facility] 2019-06-25 2019-06-25 Office Wilfredo, [facility] Encounter/ Legacy 00:00:00 00:00:00 Visit Mirella [id number] Com natalee De La Cruz 706007 [facility] 2019-06-25 2019-06-25 Office Wilfredo, [facility] Encounter/ Legacy 00:00:00 00:00:00 Visit Mirella [id number] Com natalee De La Cruz 514459 [facility] 2019-06-25 2019-06-25 Office WilfredoMirella willingham [facility] Encounter/ Legacy 00:00:00 00:00:00 Visit KedarFlorinajyotsna [id number] [facility] 629[facility] 2019-05-14 2019-05-14 Refill [facility] 1.2.840.114 [id number] Univers 00:00:00 00:00:00 [facility] 350.1.13.10 ity of [place] 4.2.7.2.686 [place] Professio [phone] [address] Office [facility] 2019-04-05 2019-04-05 Outpatient R JOCE [facility] [id number] Univers 13:15:00 14:32:32 WONDIFUL ity o f [facility] 2019-04-05 2019-04-05 Office Joce [facility] 1.2.840.114 [id number] Univers 13:11:19 14:32:32 Visit [facility] 350.1.13.10 ity of [place] 4.2.7.2.686 [place] Professio [phone] Oh dical nal 044 [place] Office [facility] One 2019-04-04 2019-04-04 Telephone [facility] 1.2.435.063 [id number] Univers 00:00:00 00:00:00 Daniel Albrecht 350.1.13.10 it[place] of [place] [phone] Oh dical nal 059 [facility] 2019-04-01 2019-04-01 Hollow Tile Partition Erector 2, Adc Lab [facility] 1.2.840.114 [id number] Univers 11:11:10 11:26:10 Visit Daniel Pérez 350.1.13.10 it[place] of [place].2.[place] [phone] Oh dical nal 353 [facility] 2019-04-01 2019-04-01 Outpatient R BETO [facility] [id number] Univers 11:15:00 11:15:00 DANIEL collins o f [facility] 2019-04-01 2019-04-01 Office [facility] 1.2.840.114 [id number] Univers 09:49:17 11:01:30 Visit Daniel Albrecht 350.1.13.10 it[place] of [place] 4.2.7.2.[place] [phone] [facility] nal 9 [facility] 2019-04-01 2019-04-01 Orders Doctor LILLIANA 1.2.840.114 [id number] Univers 00:00:00 00:00:00 Only Unassigned, MACKENZIE 350.1.13.10 ity of [place] [facility] 4.2.7.2.686 Kilo as [phone] [address] 2018-08-03 2018-08-03 Outpatient R JOCE [facility] [id number] Univers 12:45:00 12:45:00 WONDIFUL ity o f [facility] Results Test Description Test Time Test Comments Results Result Comments Source N-TERMINAL PRO-BNP 2022-09-08 21:21:23 Test Item Value Reference Range Interpretation Comme nts NT-proBNP (test code = 53520-3) 969 pg/mL <=125 ALEXIS (test code = ALEXIS) Result Indeterminate-Consider causes of NT-proBNP elevation other than Heart failure such as acute coronary syndrome, pulmonary embolism, pulmonary hypertension, sepsis, stroke, and renal dysfunction. Lab Interpretation (test code = 70691-2) Abnormal [facility]. METABOLIC PANEL (81865)2022-09-08 21:14:26 Test Item Value Reference Range Interpretation Comments NA (test code = 139 mmol/L 135-145 2102985965) K (test code = 3.6 mmol/L 3.5-5.0 6602158195) CL (test code = 101 mmol/L 98-108 3189037999) CO2 TOTAL (test code = 31 mmol/L 23-31 6613627039) AGAP (test code = 7 2-16 5687551948) BUN (test code = 15 mg/dL 7-23 4905973744) GLUCOSE (test code = 149 mg/dL 70-110 H 9293004148) CREATININE (test code = 0.50 mg/dL 0.50-1.04 4784938114) TOTAL BILI (test code = 0.6 mg/dL 0.1-1.2 4645223715) CALCIUM (test code = 8.7 mg/dL 8.6-10.6 4086563496) T PROTEIN (test code = 6.4 g/dL 6.3-8.2 2718904892) ALBUMIN (test code = 3.7 g/dL 3.5-5.0 9101023382) ALK PHOS (test code = 90 U/L 34-122 8966201840) ALTv (test code = 19 U/L 5-35 1742-6) AST(SGOT) (test code = 27 U/L 13-40 6232656739) eGFR (test code = 117.0 mL/min/1.73m2 7960456610) ALEXIS (test code = ALEXIS) Association of [...] tests). Lab Interpretation Abnormal (test code = 66481-3) [facility] WITH [id number] 18:51:11 Test Item Value Reference Range Interpretation Comments WBC (test code = 7.51 See_Comment [Automated 0689-2) message] The sy stem which generated this result transmitted reference range : 4.30 - 11.10 10*3/?L. The reference range was not used to interpret this result as normal/abnormal . RBC (test code = 4.59 See_Comment [Automated 963-8) message] The sy stem which generated this result transmitted reference range : 3.93 - 5.25 10*6/?L. The reference range was not used to interpret this result as normal/abnormal . HGB (test code = 10.9 g/dL 11.6-15.0 L 718-7) HCT (test code = 35.2 % 35.7-45.2 L 4544-3) MCV (test code = 76.7 fL 80.6-95.5 L 787-2) MCH (test code = 23.7 pg 25.9-32.8 L 785-6) MCHC (test code = 31.0 g/dL 31.6-35.1 L 786-4) RDW-SD (test code = 57.1 fL 39.0-49.9 H 01863-9) RDW-CV (test code = 20.9 % 12.0-15.5 H 788-0) PLT (test code = 313 See_Comment [Automated 777-3) message] The sy stem which generated this result transmitted reference range : 166 - 358 10*3/ ?L. The reference r nanci was not used to interpret this result as normal/abnormal . MPV (test code = 10.3 fL 9.5-12.9 90028-3) NRBC/100 WBC (test 0.0 See_Comment [Automat ed code = 4024659415) message] The system which generated this result transmitted reference range : 0.0 - 10.0 /100 WBCs. The refer ence range was not u sed to interpret th is result as normal/abnormal . NRBC x10^3 (test code See_Comment [Auto mated = 7734350841) message] The s ystem which generated this result transmitted reference range : 10*3/?L. The reference range was not used to interpret this result as normal/abnormal . GRAN MAT (NEUT) % 63.2 % (test code = 770-8) IMM GRAN % (test code 0.10 % = 7795565951) LYMPH % (test code = 26.6 % 736-9) MONO % (test code = 7.6 % 5905-5) EOS % (test code = 2.1 % 713-8) BASO % (test code = 0.4 % 706-2) GRAN MAT x10^3(ANC) 4.74 10*3/uL 1.88-7.09 (test code = 3066243479) IMM GRAN x10^3 (test 0.00-0.06 code = 6099066491) LYMPH x10^3 (test code 2.00 10*3/uL 1.32-3.29 = 731-0) MONO x10^3 (test code 0.57 10*3/uL 0.33-0.92 = 742-7) EOS x10^3 (test code = 0.16 10*3/uL 0.03-0.39 711-2) BASO x10^3 (test code 0.03 10*3/uL 0.01-0.07 = 704-7) Lab Interpretation Abnormal (test code = 30659-9) [facility] WITH [id number] 18:51:11 Test Item Value Reference Range Interpretation Comments WBC (test code = 7.51 See_Comment [Automated 6690-2) message] The sy stem which generated this result transmitted reference range : 4.30 - 11.10 10*3/?L. The reference range was not used to interpret this result as normal/abnormal . RBC (test code = 4.59 See_Comment [Automated 789-8) message] The sy stem which generated this result transmitted reference range : 3.93 - 5.25 10*6/?L. The reference range was not used to interpret this result as normal/abnormal . HGB (test code = 10.9 g/dL 11.6-15.0 L 718-7) HCT (test code = 35.2 % 35.7-45.2 L 4544-3) MCV (test code = 76.7 fL 80.6-95.5 L 787-2) MCH (test code = 23.7 pg 25.9-32.8 L 785-6) MCHC (test code = 31.0 g/dL 31.6-35.1 L 786-4) RDW-SD (test code = 57.1 fL 39.0-49.9 H 87819-6) RDW-CV (test code = 20.9 % 12.0-15.5 H 788-0) PLT (test code = 313 See_Comment [Automated 777-3) message] The sy stem which generated this result transmitted reference range : 166 - 358 10*3/ ?L. The reference r nanci was not used to interpret this result as normal/abnormal . MPV (test code = 10.3 fL 9.5-12.9 67344-4) NRBC/100 WBC (test 0.0 See_Comment [Automat ed code = 4669637362) message] The system which generated this result transmitted reference range : 0.0 - 10.0 /100 WBCs. The refer ence range was not u sed to interpret th is result as normal/abnormal . NRBC x10^3 (test code See_Comment [Auto mated = 7585665500) message] The s ystem which generated this result transmitted reference range : 10*3/?L. The reference range was not used to interpret this result as normal/abnormal . GRAN MAT (NEUT) % 63.2 % (test code = 770-8) IMM GRAN % (test code 0.10 % = 7083057132) LYMPH % (test code = 26.6 % 736-9) MONO % (test code = 7.6 % 5905-5) EOS % (test code = 2.1 % 713-8) BASO % (test code = 0.4 % 706-2) GRAN MAT x10^3(ANC) 4.74 10*3/uL 1.88-7.09 (test code = 2553994216) IMM GRAN x10^3 (test 0.00-0.06 code = 6979315772) LYMPH x10^3 (test code 2.00 10*3/uL 1.32-3.29 = 731-0) MONO x10^3 (test code 0.57 10*3/uL 0.33-0.92 = 742-7) EOS x10^3 (test code = 0.16 10*3/uL 0.03-0.39 711-2) BASO x10^3 (test code 0.03 10*3/uL 0.01-0.07 = 704-7) Lab Interpretation Abnormal (test code = 26709-7) [id number] 15:02:10 Test Item Value Reference Range Interpretation Comments NT-proBNP (test code = 782 pg/mL <=450 H 5838572663) ALEXIS (test code = ALEXIS) Biotin has been reported to cause a negative bias, interpret results relative to patient's use of biotin. Lab Interpretation (test Abnormal code = 59258-3) [facility] (NA, K, CL, CO2, GLUCOSE, BUN, CREATININE, CA)2022-06-11 14:53:52 Test Item Value Reference Range Interpretation Comments NA (test code = 139 mmol/L 135-145 6027125123) K (test code = 4.5 mmol/L 3.5-5.0 2321077649) CL (test code = 103 mmol/L 98-108 0443068014) CO2 TOTAL (test code = 30 mmol/L 23-31 8823425470) AGAP (test code = 6 2-16 7323310120) BUN (test code = 17 mg/dL 7-23 6956906490) GLUCOSE (test code = 134 mg/dL 70-110 H 8640406853) CREATININE (test code = 0.57 mg/dL 0.50-1.04 0348924659) CALCIUM (test code = 9.0 mg/dL 8.6-10.6 7139420706) eGFR (test code = 100.6 mL/min/1.73m2 1431981057) ALEXIS (test code = ALEXIS) Association of [...] tests). Lab Interpretation Abnormal (test code = 11630-6) [facility]-GLUCOSE [id number] 11:00:26 Test Item Value Reference Range Interpretation Comments POC-GLUCOSE METER 139 mg/dL 70-110 H : TESTED A T [facility] 6720 (BEAKER) (test code = KAREN Ramsey [facility], 1538) 24257: Endo Tech/Techni socrates ID = [id number] for Co Sridevi mccullough POCT-GLUCOSE [id number] 08:28:34 Test Item Value Reference Range Interpretation Comments POC-GLUCOSE METER 147 mg/dL 70-110 H : TESTED A T [facility] 6720 (BEAKER) (test code = KAREN Ramsey [facility], 1538) 99955: Endo Tech/Techni socrates ID = [id number] for Co Sridevi mccullough BASIC METABOLIC [id number] 05:30:33 Test Item Value Reference Range Interpretation [...] not appl icable for dialysis patien ts Endo Tech ID - TERRELL [id number] 05:30:33 Test Item Value Reference Range Interpretation Comments MAGNESIUM (BEAKER) (test code = 2.1 mg/dL 1.6-2.6 627) Endo Tech ID - TERRELL GCBC W/PLT COUNT & AUTO [id number] 05:08:16 Test Item Value Reference Range Interpretation [...] PERCENT (BEAKER) (test code = 2801) POCT-GLUCOSE [id number] 22:18:08 Test Item Value Reference Range Interpretation Comments POC-GLUCOSE METER 150 mg/dL 70-110 H : Notified RN/MD: ([facility]) (test code = TESTED AT [facility] 6720 1538) [facility], [address]: Endo Tech/Techni socrates ID = [id number] for AVINASH GARRIDOHERNÁN POCT-GLUCOSE [id number] 18:35:11 Test Item Value Reference Range Interpretation Comments POC-GLUCOSE METER 153 mg/dL 70-110 H : [facility] (test code [facility], = 1538) 13594: Endo Tech/Techni socrates ID = [id number] for LATT ODETTE - CARA, BRODERICK POCT-GLUCOSE [id number] 12:18:53 Test Item Value Reference Range Interpretation Comments POC-GLUCOSE METER 149 mg/dL 70-110 H : [facility] ([facility]ER[facility] (test code [facility], = 1538) 26643: Endo Tech/Techni socrates ID = [id number] for LATT ODETTE - CARA, BRODERICK POCT-GLUCOSE [id number] 09:02:22 Test Item Value Reference Range Interpretation Comments POC-GLUCOSE METER 138 mg/dL 70-110 H : TESTED A T [facility] 6720 (BEAKER) (test code [facility], = 1538) 39937: Endo Tech/Techni socrates ID = [id number] for LATT IMORE - CARA, BRODERICK BASIC METABOLIC [id number] 06:05:05 Test Item Value Reference Range Interpretation [...] not appl icable for dialysis patien ts Endo Tech ID - [id number] 06:05:05 Test Item Value Reference Range Interpretation Comments MAGNESIUM (BEAKER) (test code = 2.1 mg/dL 1.6-2.6 627) Endo Tech ID - [id number] 06:05:05 Test Item Value Reference Range Interpretation Comments PHOSPHORUS (BEAKER) (test code = 4.8 mg/dL 2.3-4.7 H 604) Endo Tech ID - MARCOCBC W/PLT COUNT & AUTO [id number] 05:46:55 Test Item Value Reference Range Interpretation [...] PERCENT (BEAKER) (test code = 2801) POCT-GLUCOSE [id number] 20:25:43 Test Item Value Reference Range Interpretation Comments POC-GLUCOSE METER 153 mg/dL 70-110 H : TESTED Jyotsna Roman [facility] 6720 (BEAKER) (test code = KAREN SWANN [place], 1538) 51957: Endo Tech/Techni socrates ID = [id number] for Felicia Watkins POCT-GLUCOSE [id number] 18:10:56 Test Item Value Reference Range Interpretation Comments POC-GLUCOSE METER 162 mg/dL 70-110 H : TESTED A T [facility] 6720 (BEAKER) (test code [facility], = 1538) 77371: Endo Tech/Techni socrates ID = [id number] for BRODERICK VEE POCT-GLUCOSE [id number] 13:16:14 Test Item Value Reference Range Interpretation Comments POC-GLUCOSE METER 133 mg/dL 70-110 H : TESTED A T [facility] 6720 (BEAKER) (test code [facility], = 1538) 04484: Endo Tech/Techni socrates ID = [id number] for NEGRITO PINO - BRODERICK MARROQUIN POCT-GLUCOSE [id number] 08:50:00 Test Item Value Reference Range Interpretation Comments POC-GLUCOSE METER 122 mg/dL 70-110 H : TESTED A T [facility] 6720 (BEAKER) (test code [facility], = 1538) 46509: Endo Tech/Techni socrates ID = [id number] for BRODERICK VEE CBC W/PLT COUNT & AUTO [id number] 05:50:43 Test Item Value Reference Range Interpretation [...] 0.00-1.00 PERCENT (BEAKER) (test code = 2801) [id number] 05:40:36 Test Item Value Reference Range Interpretation Comments PHOSPHORUS (BEAKER) 3.8 mg/dL 2.3-4.7 Specimen moderately (test code = 604) hemolyzed Endo Tech ID - AAHAMIDBASIC METABOLIC [id number] 05:40:36 Test Item Value Reference Range Interpretation [...] not appl icable for dialysis patien ts Endo Tech ID - [id number] 05:40:35 Test Item Value Reference Range Interpretation Comments MAGNESIUM (BEAKER) 2.2 mg/dL 1.6-2.6 Specimen moderately (test code = 627) hemolyzed Endo Tech ID - AAHAMIDPOCT-GLUCOSE [id number] 00:20:31 Test Item Value Reference Range Interpretation Comments POC-GLUCOSE METER 136 mg/dL 70-110 H : TESTED A T [facility] 6720 (BEAKER) (test code = [facility], 153) 32384: Endo Tech/Techni socrates ID = [id number] for Gr oswald (contract), Sha iliana POCT-GLUCOSE [id number] 16:54:24 Test Item Value Reference Range Interpretation Comments POC-GLUCOSE METER 160 mg/dL 70-110 H : TESTED A T [facility] 6720 (BEAKER) (test code = [facility], 153) 44496: Endo Tech/Techni socrates ID = [id number] for Co ok, Sridevi POCT-GLUCOSE [id number] 15:00:16 Test Item Value Reference Range Interpretation Comments POC-GLUCOSE METER 169 mg/dL 70-110 H : TESTED A T [facility] 6720 (BEAKER) (test code = [facility], 153) 27212: Endo Tech/Techni socrates ID = [id number] for Iam macias (contract), Roberto th HEMOGLOBIN [id number] 08:42:39 Test Item Value Reference Range Interpretation Comments HEMOGLOBIN A1C 6.8 % See_Comment H [Automated m essage] ELECTROPHORESIS (BEAKER) The system which (test code = 3811) generated this result transmitted ref erence range: <=5.6%. The reference range was not used to int erpret this result as normal/abnormal . "The A1c is measured using a [facility]-certified method. HbA1c value equal to or greater than 6.5% as thediagnosis cutoff for diabetes. An HbA1c value of 5.7- 6.4% indicates increased risk for diabetes (prediabetes)."Endo Tech ID - ADM [id number] 04:27:27 Test Item Value Reference Range Interpretation Comments MAGNESIUM (BEAKER) 2.1 mg/dL 1.6-2.6 Specimen slightly (test code = 627) hemolyzed Endo Tech ID - [id number] 04:27:27 Test Item Value Reference Range Interpretation Comments PHOSPHORUS (BEAKER) 3.0 mg/dL 2.3-4.7 Specimen slightly (test code = 604) hemolyzed Endo Tech ID - MARCOBASIC METABOLIC [id number] 04:27:27 Test Item Value Reference Range Interpretation [...] not appl icable for dialysis patien ts Endo Tech ID - MARCOCBC W/PLT COUNT & AUTO [id number] 04:02:29 Test Item Value Reference Range Interpretation [...] LYMPHOCYTES ABSOLUTE COUNT 1.69 K/ L 1.18-3.74 (AKER) (test code = 414) MONOCYTES ABSOLUTE COUNT (BEAKER) 0.62 K/ L 0.24-0.36 H (test code = 415) EOSINOPHILS ABSOLUTE COUNT 0.00 K/ L 0.04-0.36 L (BEAKER) (test code = 416) BASOPHILS ABSOLUTE COUNT (AKER) 0.01 K/ L 0.01-0.08 (test code = 417) IMMATURE GRANULOCYTES-RELATIVE 0.30 % 0.00-1.00 PERCENT (AKER) (test code = 2801) POCT-GLUCOSE [id number] 00:54:42 Test Item Value Reference Range Interpretation Comments POC-GLUCOSE METER 196 mg/dL 70-110 H : TESTED A T [facility] [facility] ([facility]) (test code = [facility], 153) [address]: Endo Tech/Techni socrates ID = [id number] for MARQUES SHELBIJAY PAK HIGH SENSITIVITY TROPONIN [id number] 19:05:12 Test Item Value Reference Range Interpretation Comments HIGH SENSITIVITY TROPONIN I (test 43 pg/ml <=17 H code = 1662451) Endo Tech ID - BSThe DECORATOR INSPECTOR STAT High Sensitivity Troponin-I results should be used in conjunctionwith other diagnostic information such as ECG, clinical observations and information, and patient symptoms to aid in the diagnosis of [facility].POCT-GLUCOSE [id number] 17:15:39 Test Item Value Reference Range Interpretation Comments POC-GLUCOSE METER 267 mg/dL 70-110 H : TESTED A T [facility] 67[address] ([facility]) (test code = [facility], 153) [address]: Endo Tech/Techni socrates ID = [id number] for [place], Sridevi POCT-GLUCOSE [id number] 12:13:16 Test Item Value Reference Range Interpretation Comments POC-GLUCOSE METER 257 mg/dL 70-110 H : Notified RN/MD: [facility] (test code = TESTED AT [place] [address] 1537) [facility], [address]: Endo Tech/Techni socrates ID = [id number] for LL OYD, TIKEYA TSH/FREE T4 IF [id number] 12:08:26 Test Item Value Reference Range Interpretation Comments THYROID STIMULATING HORMONE 0.911 uIU/mL 0.350-4.940 (BEAKER) (test code = 772) Endo Tech ID - MMHIGH SENSITIVITY TROPONIN [id number] 11:54:08 Test Item Value Reference Range Interpretation Comments HIGH SENSITIVITY TROPONIN I (test 68 pg/ml <=17 H code = 6738554) Endo Tech ID - MMThe DECORATOR INSPECTOR STAT High Sensitivity Troponin-I results should be used in conjunctionwith other diagnostic information such as ECG, clinical observations and information, and patient symptoms to aid in the diagnosis of VA.CBC W/PLT COUNT & AUTO [id number] 11:19:14 Test Item Value Reference Range Interpretation [...] PERCENT (BEAKER) (test code = 2801) RESPIRATORY [id number] 11:14:11 Test Item Value Reference Range Interpretation [...] SEVERE ACUTE RESPIRATORY Not detected Not detected, [id number]-7 Equivocal (test code = 6035911) BORDETELLA PARAPERTUSSIS Not detected Not detected, (BKR) (test code = 2536721) Equivocal Other viruses and bacteria not targeted by this PCR panel cannot be excluded; therefore clinical correlation and follow up of serology, culture results, and other molecular studies is required. The results are not intended to be used as the sole means for clinical diagnosis or patient management decisions. This sample was tested at the [facility] Molecular Diagnostics Laboratory using the StorifyArray Respiratory Panel. It is FDA cleared and has been verified and approved by the [facility] Molecular Diagnostics Laboratory for clinical use on nasopharyngeal swab specimens.The performance of the FilmArrayRP has not been established in individuals who received influenza vaccine. Recent administration of a nasal influenza vaccine may cause false positive results for Influenza A and/orInfluenza B.[id number] 10:49:18 Test Item Value Reference Range Interpretation Comments PROCALCITONIN (BEAKER) (test code = < ng/mL <0.05 3036) SEPSIS RISK (ng/mL)Low: 0.05-0.50Intermediate: 0.51-2.00High: >=2.01HIGH SENSITIVITY TROPONIN [id number] 10:36:58 Test Item Value Reference Range Interpretation Comments HIGH SENSITIVITY TROPONIN I (test 69 pg/ml <=17 H code = 1802332) Endo Tech ID - MMThe DECORATOR INSPECTOR STAT High Sensitivity Troponin-I results should be used in conjunctionwith other diagnostic information such as ECG, clinical observations and information, and patient symptoms to aid in the diagnosis of [facility].B-TYPE NATRIURETIC FACTOR (BNP)2022-05-28 10:36:39 Test Item Value Reference Range Interpretation Comments B-TYPE NATRIURETIC PEPTIDE (BEAKER) 367 pg/mL 0-100 H (test code = 700) Endo Tech ID - [id number] 09:16:13 Test Item Value Reference Range Interpretation Comments PHOSPHORUS (BEAKER) (test code = 3.0 mg/dL 2.3-4.7 604) Endo Tech ID - MMCOMPREHENSIVE METABOLIC [id number] 09:16:12 Test Item Value Reference Range Interpretation [...] high >=90 G2 Mildly decreased 60-89 G3a Mild ly to moderately 45-5 9 G3b Moderately to [...] not appl icable for dialysis patien ts Endo Tech ID - [id number] 09:16:12 Test Item Value Reference Range Interpretation Comments MAGNESIUM (BEAKER) (test code = 2.0 mg/dL 1.6-2.6 627) Endo Tech ID - MMRAD, CHEST, 1 VIEW, NON [id number] 09:03:00Reason for exam:- >shortness of breathShould this be performed at the bedside?->Yes [facility] 1935 Sex: FFINAL [...] injury. Abdomen: No free air below the diaphragm.IMPRESSION:Hazy bilateral lower lobe airspace opacities may represent pulmonary edema or pneumonitis. Signed: Karen Pittman MDReport Verified Date/Time: 05/28/2022 09:03:39 LACTIC ACID, [id number] 08:50:45 Test Item Value Reference Range Interpretation Comments LACTATE BLOOD VENOUS 3.84 mmol/L 0.50-2.00 H Specime n moderately (2) (BEAKER) (test hemolyzed code = 4252) Endo Tech ID - [id number] 08:47:24 Test Item Value Reference Range Interpretation Comments FIBRINOGEN LEVEL (BEAKER) (test 207 mg/dl 225-434 L code = 658) PROTHROMBIN TIME/[id number] 08:47:03 Test Item Value Reference Range Interpretation Comments PROTIME (BEAKER) (test code = 14.1 seconds 11.9-14.2 759) INR (BEAKER) (test code = 370) 1.11 <=5.90 RECOMMENDED COUMADIN/WARFARIN INR THERAPY RANGESSTANDARD DOSE: 2.0 - 3.0 Includes: PROPHYLAXIS for venous thrombosis, systemic embolization; TREATMENT for venous thrombosis and/or pulmonary embolus.HIGH RISK: Target INR is 2.5-3.5 for patients with mechanical heart valves.BLOOD GAS, [id number] 08:43:53 Test Item Value Reference Range Interpretation [...] (test code = 1819) 40.0 CBC WITH [id number] 00:09:18 Test Item Value Reference Range Interpretation Comments WBC (test code = See_Comment [Automated 7390-2) message] The sy stem which generated this result transmitted reference range : 4.30 - 11.10 10*3/?L. The reference range was not used to interpret this result as normal/abnormal . RBC (test code = See_Comment [Automated 974-8) message] The sy stem which generated this [...] RDW-SD (test code = 45.1 fL 39.0-49.9 18779-3) RDW-CV (test code = 15.3 % 12.0-15.5 788-0) PLT (test code = See_Comment [Automated 777-3) message] The sy stem which generated this result transmitted reference range : 166 - 358 10*3/ ?L. The reference r nanci was not used to interpret this result as normal/abnormal . MPV (test code = 11.4 fL 9.5-12.9 85213-6) NRBC/100 WBC (test See_Comment [Automat ed code = 0557047979) message] The system which generated this result transmitted reference range : 0.0 - 10.0 /100 WBCs. The refer ence range was not u sed to interpret th is result as normal/abnormal . NRBC x10^3 (test code See_Comment [Auto mated = 9509467190) message] The s ystem which generated this result transmitted reference range : 10*3/?L. The reference range was not used to interpret this result as normal/abnormal . GRAN MAT (NEUT) % 57.0 % (test code = 770-8) IMM GRAN % (test code 0.30 % = 4653183719) LYMPH % (test code = 32.1 % 736-9) MONO % (test code = 7.8 % 5905-5) EOS % (test code = 2.5 % 713-8) BASO % (test code = 0.3 % 706-2) GRAN MAT x10^3(ANC) 4.26 10*3/uL 1.88-7.09 (test code = 1330905589) IMM GRAN x10^3 (test 0.00-0.06 code = 3903001289) LYMPH x10^3 (test code 2.40 10*3/uL 1.32-3.29 = 731-0) MONO x10^3 (test code 0.58 10*3/uL 0.33-0.92 = 742-7) EOS x10^3 (test code = 0.19 10*3/uL 0.03-0.39 711-2) BASO x10^3 (test code 0.01-0.07 = 704-7) Lab Interpretation Abnormal (test code = 77626-9) [facility] WITH [id number] 00:09:18 Test Item Value Reference Range Interpretation Comments WBC (test code = 7.47 See_Comment [Automated 3062-2) message] The sy stem which generated this result transmitted reference range : 4.30 - 11.10 10*3/?L. The reference range was not used to interpret this result as normal/abnormal . RBC (test code = 4.42 See_Comment [Automated 864-8) message] The sy stem which generated this [...] RDW-SD (test code = 45.1 fL 39.0-49.9 75830-1) RDW-CV (test code = 15.3 % 12.0-15.5 788-0) PLT (test code = 332 See_Comment [Automated 637-3) message] The sy stem which generated this result transmitted reference range : 166 - 358 10*3/ ?L. The reference r nanci was not used to interpret this result as normal/abnormal . MPV (test code = 11.4 fL 9.5-12.9 94788-4) NRBC/100 WBC (test 0.0 See_Comment [Automat ed code = 1876246018) message] The system which generated this result transmitted reference range : 0.0 - 10.0 /100 WBCs. The refer ence range was not u sed to interpret th is result as normal/abnormal . NRBC x10^3 (test code See_Comment [Auto mated = 4725902689) message] The s ystem which generated this result transmitted reference range : 10*3/?L. The reference range was not used to interpret this result as normal/abnormal . GRAN MAT (NEUT) % 57.0 % (test code = 770-8) IMM GRAN % (test code 0.30 % = 1684843806) LYMPH % (test code = 32.1 % 736-9) MONO % (test code = 7.8 % 5905-5) EOS % (test code = 2.5 % 713-8) BASO % (test code = 0.3 % 706-2) GRAN MAT x10^3(ANC) 4.26 10*3/uL 1.88-7.09 (test code = 0396601227) IMM GRAN x10^3 (test 0.00-0.06 code = 7659946457) LYMPH x10^3 (test code 2.40 10*3/uL 1.32-3.29 = 731-0) MONO x10^3 (test code 0.58 10*3/uL 0.33-0.92 = 742-7) EOS x10^3 (test code = 0.19 10*3/uL 0.03-0.39 711-2) BASO x10^3 (test code 0.01-0.07 = 704-7) Lab Interpretation Abnormal (test code = 13038-0) [facility] WITH [id number] 00:09:18 Test Item Value Reference Range Interpretation [...] RDW-SD (test code = 45.1 fL 39.0-49.9 03255-3) RDW-CV (test code = 15.3 % 12.0-15.5 788-0) PLT (test code = 332 See_Comment [Automated 777-3) message] The sy stem which generated this result transmitted reference range : 166 - 358 10*3/ ?L. The reference r nanci was not used to interpret this result as normal/abnormal . MPV (test code = 11.4 fL 9.5-12.9 44610-6) NRBC/100 WBC (test 0.0 See_Comment [Automat ed code = 8981215147) message] The system which generated this result transmitted reference range : 0.0 - 10.0 /100 WBCs. The refer ence range was not u sed to interpret th is result as normal/abnormal . NRBC x10^3 (test code See_Comment [Auto mated = 9748587075) message] The s ystem which generated this result transmitted reference range : 10*3/?L. The reference range was not used to interpret this result as normal/abnormal . GRAN MAT (NEUT) % 57.0 % (test code = 770-8) IMM GRAN % (test code 0.30 % = 0566199506) LYMPH % (test code = 32.1 % 736-9) MONO % (test code = 7.8 % 5905-5) EOS % (test code = 2.5 % 713-8) BASO % (test code = 0.3 % 706-2) GRAN MAT x10^3(ANC) 4.26 10*3/uL 1.88-7.09 (test code = 9221310768) IMM GRAN x10^3 (test 0.00-0.06 code = 5488843281) LYMPH x10^3 (test code 2.40 10*3/uL 1.32-3.29 = 731-0) MONO x10^3 (test code 0.58 10*3/uL 0.33-0.92 = 742-7) EOS x10^3 (test code = 0.19 10*3/uL 0.03-0.39 711-2) BASO x10^3 (test code 0.01-0.07 = 704-7) Lab Interpretation Abnormal (test code = 04520-5) [facility] (82924[facility]2021-09-03 20:37:56 Test Item Value Reference Range Interpretation Comments NA (test code = 138 mmol/L 135-145 4873591124) K (test code = 4.4 mmol/L 3.5-5.0 1509532973) CL (test code = 99 mmol/L 98-108 4704155151) CO2 TOTAL (test code = 28 mmol/L 23-31 5943017455) AGAP (test code = 11 2-16 8854472242) BUN (test code = 18 mg/dL 7-23 4485074898) GLUCOSE (test code = 122 mg/dL 70-110 H 8159388519) CREATININE (test code = 0.59 mg/dL 0.50-1.04 6305524837) TOTAL BILI (test code = 0.5 mg/dL 0.1-1.4 1510090513) CALCIUM (test code = 9.0 mg/dL 8.6-10.6 9907432468) T PROTEIN (test code = 6.6 g/dL 6.3-8.2 9156961170) ALBUMIN (test code = 4.1 g/dL 3.5-5.0 4958542145) ALK PHOS (test code = 91 U/L 34-122 6692000414) ALTv (test code = 21 U/L 5-35 1742-6) AST(SGOT) (test code = 27 U/L 13-40 7000697827) eGFR (test code = 96.9 mL/min/1.73m2 1053484382) ALEXIS (test code = ALEXIS) Association of [...] tests). Lab Interpretation Abnormal (test code = 11713-0) [facility] 20:37:36 Test Item Value Reference Range Interpretation Comments LIPASE (test code = 6947070059) 184 U/L 0-220 Lab Interpretation (test code = Normal 26195-2) [facility] WITH [id number] 19:27:42 Test Item Value Reference Range Interpretation Comments WBC (test code = 8.34 See_Comment [Automated 0583-2) message] The sy stem which generated this result transmitted reference range : 4.30 - 11.10 10*3/?L. The reference range was not used to interpret this result as normal/abnormal . RBC (test code = 4.38 See_Comment [Automated 789-8) message] The sy stem [...] RDW-SD (test code = 48.8 fL 39.0-49.9 73838-1) RDW-CV (test code = 15.2 % 12.0-15.5 788-0) PLT (test code = 291 See_Comment [Automated 777-3) message] The sy stem which generated this result transmitted reference range : 166 - 358 10*3/ ?L. The reference r nanci was not used to interpret this result as normal/abnormal . MPV (test code = 11.2 fL 9.5-12.9 89032-2) NRBC/100 WBC (test 0.0 See_Comment [Automat ed code = 9658507828) message] The system which generated this result transmitted reference range : 0.0 - 10.0 /100 WBCs. The refer ence range was not u sed to interpret th is result as normal/abnormal . NRBC x10^3 (test code See_Comment [Auto mated = 1417170420) message] The s ystem which generated this result transmitted reference range : 10*3/?L. The reference range was not used to interpret this result as normal/abnormal . GRAN MAT (NEUT) % 60.5 % (test code = 770-8) IMM GRAN % (test code 0.40 % = 2811817021) LYMPH % (test code = 27.5 % 736-9) MONO % (test code = 8.3 % 5905-5) EOS % (test code = 2.9 % 713-8) BASO % (test code = 0.4 % 706-2) GRAN MAT x10^3(ANC) 5.06 10*3/uL 1.88-7.09 (test code = 9774180735) IMM GRAN x10^3 (test 0.03 10*3/uL 0.00-0.06 code = 6002360400) LYMPH x10^3 (test code 2.29 10*3/uL 1.32-3.29 = 731-0) MONO x10^3 (test code 0.69 10*3/uL 0.33-0.92 = 742-7) EOS x10^3 (test code = 0.24 10*3/uL 0.03-0.39 711-2) BASO x10^3 (test code 0.03 10*3/uL 0.01-0.07 = 704-7) Lab Interpretation Abnormal (test code = 02441-8) [facility], FLUORO, NON-SPECIFIC, UP TO 1 HOUR 2019-07-14 09:44:00Reason for exam:->cystoFINAL REPORT A fluoroscopic unit was utilized for a procedure performed in the operating room. No interpretation was requested. Please refer to the operative report regarding findings. Please refer to PACS for patient radiation dose information. Signed: JR Johnson Robert MDReport Verified Date/Time: 07/14/2019 09:44:15 Reading Location: [facility] C0[facility] Neuro Reading Room BLOOD [id number] 11:00:00 Test Item Value Reference Range Interpretation Comments CULTURE (BEAKER) (test No growth in 5 days code = 1095) BLOOD [id number] 11:00:00 Test Item Value Reference Range Interpretation Comments CULTURE (BEAKER) (test No growth in 5 days code = 1095) URINE [id number] 11:07:00 Test Item Value Reference Range Interpretation Comments CULTURE (BEAKER) (test code = 1095) No growth ANG, NEPHROSTOMY, PERC, EXTERNAL [id number] 11:00:00Reason for exam:- >request left PCN for left obstructing stone, feversFINAL REPORT Procedure: Percutaneous nephrostomy catheter placement. History: Left ureteric calculus with obstruction, infection. Guest Relations Coordinator: Bradford Matthew M.D. [employer] Spray Supervisor: Not Konstantin mckeon Modality: Ultrasound and fluoroscopy. [...] local infiltration Medicines: Not applicable Contrast medium: [id number], 15 cc. Estimated blood loss: < 5 [...] anesthesia and dermatotomy, under real-time ultrasonographic guidance, [id number] Chiba needle was advanced into the calyx. After confirming the recovery of urine, a guidewire was advanced into the collecting system under fluoroscopic guidance. Contrast injection confirmed satisfactory position of the access system. Over the wire, following sequential dilatation of the tract, an 8.5 Romanian nephrostomy catheter was placed, pigtail locked in [...] bladder. Impression:Successful ultrasound and fluoroscopic guided 8.5 Romanian nephrostomy catheter placement left kidney via a posterior inferior calyx as described above. Further management dictated by the clinical scenario. The nephrostomy catheter(s) should be exchanged at the latest in three months. Thank you for the opportunity to assist in the care of your patient. Signed: Bradford Matthew MDReport Verified Date/Time: 07/10/2019 11:00:12 Reading Location: [place] [address] Angio Body Reading Room BASIC METABOLIC [id number] 07:33:00 Test Item Value Reference Range Interpretation [...] 1092) DATA TO CALCULA TE ESTIMATED GFR. Endo Tech ID - MONIE [id number] 07:25:00 Test Item Value Reference Range Interpretation Comments MAGNESIUM (BEAKER) (test code = 2.2 mg/dL 1.6-2.6 627) Endo Tech ID - MONIE CHEPATIC FUNCTION [id number] 07:25:00 Test Item Value Reference Range Interpretation [...] (test code = 43 U/L 6-55 347) Endo Tech ID - MONIE CCBC W/PLT COUNT & AUTO [id number] 06:54:00 Test Item Value Reference Range Interpretation [...] (BEAKER) (test code = 2801) BASIC METABOLIC [id number] 05:38:00 Test Item Value Reference Range Interpretation [...] 1092) DATA TO CALCULA TE ESTIMATED GFR. Endo Tech ID - [id number] 05:24:00 Test Item Value Reference Range Interpretation Comments MAGNESIUM (BEAKER) (test code = 1.8 mg/dL 1.6-2.6 627) Endo Tech ID - LAHEPATIC FUNCTION [id number] 05:24:00 Test Item Value Reference Range Interpretation [...] (test code = 36 U/L 6-55 347) Endo Tech ID - LACBC W/PLT COUNT & AUTO [id number] 04:34:00 Test Item Value Reference Range Interpretation [...] (BEAKER) (test code = 2801) LACTIC ACID, [id number] 20:25:00 Test Item Value Reference Range Interpretation Comments LACTATE BLOOD VENOUS (2) (BEAKER) 0.69 mmol/L 0.50-2.20 (test code = 2872) Endo Tech ID - NTPRAD, CHEST, 1 VIEW, NON [id number] 16:24:00Reason for exam:->feverShould this be performed at the bedside?->YesFINAL REPORT CLINICAL HISTORY: fever TECHNIQUE: 1 view of the chest. COMPARISON: None IMPRESSION: There is possible retrocardiac left lower lobe consolidation, for which clinical correlation for pneumonia is requested. There is blunting of the left costophrenic angle. The heart isnot enlarged. Signed: Rich Rebolledo MDReport Verified Date/Time: 07/08/2019 16:24:52 Reading Location: [address] Neuro Reading Room HEMOGLOBIN [id number] 13:56:00 Test Item Value Reference Range Interpretation Comments HEMOGLOBIN A1C (BEAKER) (test code = 6.1 % 4.3-6.1 368) URINALYSIS W/ REFLEX URINE [id number] 13:15:00 Test Item Value Reference Range Interpretation [...] = 516) SOURCE(BEAKER) (test code = 2795) Endo Tech ID - [auto]Endo Tech ID - techRESPIRATORY PANEL [id number] 12:14:00 Test Item Value Reference Range Interpretation [...] [facility] Molecular Diagnostics Laboratory using the Powered Outcomes FilmArray Respiratory Panel. It is FDA cleared and has been verified and approved by the [facility] Diagnostics Laboratory for clinical use on nasopharyngeal swab specimens.The performance of the FilmArrayRP has not been established in individuals who received influenza vaccine. Recent administration of a nasal influenza vaccine may cause false positive results for Influenza A and/orInfluenza B.SARS-COV2/RT-PCR ([facility])2019-07-08 11:26:00 Test Item Value Reference Range Interpretation Comments SARS-COV2/RT-PCR (test Not Detected Not Detected, Negative code = 5865446) SARS-COV-2 PERFORMING LAB [facility] (test code = 9969147) Negative results do not preclude SARS-CoV-2 infection [...] of the Act.Fact Sheet for Healthcare Pro viders:https://www.[employer]/Documents/Xpert%20Xpress%20SARS%20CoV-2/Fact%20Sh eets/302-3802%42DBMK-BNN-5%20HEALTHCARE%20PROVIDERS%20FACT%20SHEET.pdfFact Sheet for Healthcare Patients:https://www.[address]/Documents/Xpert%20Xpress%20SARS%20CoV-2/Fact%20Sheets/3023801%20SARS-COV -2%20PATIENT%20FACT%20SHEET.pdfPerforming Laboratory:[place] [address] [address], [place] [address]FMXEZ METABOLIC [id number] 10:06:00 Test Item Value Reference Range Interpretation [...] 1092) DATA TO CALCULA TE ESTIMATED GFR. Endo Tech ID - [id number] 10:05:00 Test Item Value Reference Range Interpretation Comments MAGNESIUM (BEAKER) (test code = 2.0 mg/dL 1.6-2.6 627) Endo Tech ID - NTPHEPATIC FUNCTION [id number] 10:05:00 Test Item Value Reference Range Interpretation [...] (test code = 30 U/L 6-55 347) Endo Tech ID - [id number] 09:53:00 Test Item Value Reference Range Interpretation [...] 2.5-3.5 for patients wiht mechanical heart valves.PROTHROMBIN TIME/[id number] 09:51:00 Test Item Value Reference Range Interpretation [...] for patients wiht mechanical heart valves.LACTIC ACID, [id number] 09:50:00 Test Item Value Reference Range Interpretation Comments LACTATE BLOOD VENOUS (2) (BEAKER) 2.87 mmol/L 0.50-2.20 H (test code = 2872) Endo Tech ID - NTPCBC W/PLT COUNT & AUTO [id number] 09:41:00 Test Item Value Reference Range Interpretation [...] 0-1 PERCENT (BEAKER) (test code = 2801) Progress Notes Date/Time Note Provider Source 2022-09-08 11:30:00-00:00 Formatting of this note migh t be different from the original. [facility] Elevated NT-proBNP noted at 969 which is increased compared to 2 months ago done in our hospital but better than the recent admission in the hospital from [place]. CMP within acceptable limits. Patient's son has habit of c hanging the Lasix as per the need. Please ask what the current dose of Lasix he has been giving her. I also recommend referring h er to heart failure clinic in [place] for further management of her underlying heart failure. Notes Date/Time Note Provider Source 2022-10-31 Formatting of this note might be differe nt from the original. Michelle Plascencia RN [facility] 08:59:41-00:00 Patient returned call, notif ied of Lab results and recommendations on diuretics, verbalized understanding via teach back 2022-10-28 [facility] 16:19:54-00:00 2nd attempt. Mailbox is full. Electronically signed by Marcela Houston MA a t 10/28/2022 4:20 PM T 2022-10-28 Formatting of this note might be differe nt from the original. Marcelina Cardenas RN [facility] 08:48:03-00:00 Images from the original note were not included. Attempted to contact patient with results/recomm endations. Unable to LVM. Ceci Lo MD P Cardiology Nurse CMP within acceptable stable limits. NT-proBNP improving currently at 766 compared to 969 1 month ago. Magnesium normal. Continue with the current do se of diuretics without any further changes. Currently has been taking Lasix 80 twice daily along with spironolactone 12.5 as needed Electronically signed by Marcelina Cardenas RN at 8:48 AM T 2022-10-26 Formatting of this note is different from the or iginal. [facility] 11:15:00-00:00 Images from the original note were not included. Venipuncture collection perf ormed by clean technique on the back of left hand. Total of 1 attempts were made. Slight pressure and a bandage/dressing were applied to the site(s). The patient experienced no complications. The follow ing specimens were processed according to instructions and sent to [facility] laboratories per lab order on 10/26/2022 : LT BLUE SST 1 RED LAV PPT DK GREEN (LiHep) DK GREEN (SodH) [place] DK BLUE (K2) DK BLUE (S) ACD Blood Culture NIPT/NTD Electronically signed by Gudelia Cheema at 0 10/26/2022 11:26 AM T 2022-09-28 Formatting of this note is different fro m the original. Yue Basurto MA [facility] 08:18:48-00:00 Images from the original note were not included. Pulmonology & Allergy: Beta Agonists and Anti-muscarinics Failed 09/27/2022 12:40 PM Protocol Details Manual Revi ew: If patient not on inhaled steroid and using bronchodilator more than twice weekly for more than 4 weeks or is having a night cough patient should be seen immediately. Manual Review: Staff refill ing for allergy - 1 month supply only unless insurance requires a 3 month supply, then 3 month supply approved. Valid encounter within last 12 months Please review and refill if appropriate ipratropium 0.02 % nebulizer solution 1 Each 11 08/09/2022 Recent Visits Date Type Provider Dept 09/08/22 Office Visit Angela Cunningham MD [facility] 08/09/22 Office Visit Angela Cunningham MD [facility] 06/28/22 Office Visit Angela Cunningham MD [facility] 06/07/22 Office Visit Angela Cunningham MD [facility] 05/17/22 Office Visit Angela Cunningham MD [facility] 03/11/22 Office Visit Angela Cunningham MD [facility] 01/21/22 Office Visit Angela Cunningham MD [facility] 12/24/21 Office Visit Chary Donald PA [facility] 12/03/21 Office Visit Angela Cunningham MD [facility] 10/25/21 Office Visit Angela Cunningham MD [facility] Showing recent visits within past 540 days with a meds authorizing provider and meeting all other requirements Future Appointments Date Type Provider Dept 10/07/22 Appointment Angela Cunningham MD [facility] Showing future appointments within next 150 days with a meds authorizing provider and meeting all other requirements 2022-09-12 Formatting of this note might be differe nt from the original. Debi Lindsay MA [facility] 14:55:56-00:00 Images from the original note were not included. Attempted to Call patient for results. N o answer will try back a little later. Ceci Lo MD P Cardiology Nurse Elevated NT-proBNP noted at 969 which is increased compared to 2 months ago done in our hospital but better than the recent admission in the hospital from [place]. CMP within acceptable limits. Patient's son has habit of c hanging the Lasix as per the need. Please ask what the current dose of Lasix he has been giving her. I also recommend referring h er to heart failure clinic in [place] for further management of her underlying heart failure. Electronically signed by Debi Lindsay MA a t 09/12/2022 3:02 PM CDT 2022-09-08 Formatting of this note is different fro m the original. Marie Armstrong [facility] 11:30:00-00:00 Images from the original note were not included. Patient requested to have la bs drawn for Angela Cunningham MD and Ceci Lo MD due to the upcoming appointment on 09/22/22. Marie Armstrong 09/08/2022 11:35 AM Venipuncture collection perf ormed by clean technique on the back of right hand. Total of 1 attempts were made. Slight pressure and a bandage/dressing were applied to the site(s). The patient experienced no complications. The follo wing specimens were processed according to instructions and sent to [facility] laboratories per lab order on 09/08/2022 LT BLUE SST 1 RED LAV 1 PPT DK GREEN (LiHep) DK GREEN (SodH) [place] DK BLUE (K2) DK BLUE (S) ACD Blood Culture NIPT/NTD Electronically signed by Marie Armstrong at 08/14 11:35 AM CDT 2022-09-08 Addended by: CECI LO on: 09/08/2022 11:05 PM [facility] 11:30:00-00:00 Modules accepted: Orders [facility]
[2022-11-01 11:37] LABS: Absolute Lymphocytes (CBC) 2.1 K/uL (0.7-4.9); Hematocrit 39.6 % (36.0-45.0); Lymphocytes % 22.1 % (15.3-44.8); MCV 79.9 fL (80-100); MPV 7.8 fL (7.6-11.3); Platelets 300 thou/uL (152-406); RBC Red Blood Cell Count 4.96 M/uL (3.86-4.86)
[2022-11-01 11:58] LABS: Albumin 3.7 g/dL (3.4-5.0); Bilirubin Direct 0.1 mg/dL (0-0.2); Bilirubin Indirect, Calculated 0.5 mg/dL (0.2-0.8); Bilirubin Total 0.6 mg/dL (0.2-1.0); Magnesium 2.3 mg/dL (1.6-2.4); Potassium 3.7 mEq/L (3.5-5.1); Protein, Total 7.8 g/dL (6.4-8.2); Troponin High Sensitivity 34.5 pg/mL (<58.9)
--- NOTE | 2022-11-01 12:02 | RAD REPORT ---
EXAM DESCRIPTION: DANIELLEChest Single View11/01/2022 11:08 am CLINICAL HISTORY: DYSPNEA COMPARISON: Chest Single View dated 08/28/2022; Chest Single View dated 08/07/2022; Chest Single View dated 08/03/2022; Chest Single View dated 07/10/2022 TECHNIQUE: Portable AP view of the chest. FINDINGS: Mildly improved pattern of central interstitial prominence and hazy opacities. No pneumot horax or effusion. The cardiomediastinal contours are unremarkable. IMPRESSION: Mild improvement as above, findings may relate to improving pulmonary edema.
--- NOTE | 2022-11-01 12:47 | RAD REPORT ---
EXAM DESCRIPTION: CT - Chest For Pe Angio - 11/01/2022 12:23 pm CLINICAL HISTORY: Chest pain. DYSPNEA COMPARISON: Chest For Pe Angio dated 08/03/2022; Chest Single View dated 08/28/2022; Chest Single View dated 11/01/2022 TECHNIQUE: CT angiogram of the pulmonary arteries was performed with MIP. All CT scans are performed using dose optimization technique as appropriate and may include automated exposure control or mA/KV adjustment according to patient size. FINDINGS: No evidence of pulmonary thromboembolism. No acute aortic finding demonstrated. Mild to moderate interstitial pulmonary edema. Small bilateral pleural effusions. Kgeb-gy-bvrywdys cardiomegaly. No concerning bony finding. IMPRESSION: No evidence of pulmonary thromboembolism. Mild to moderate CHF versus volume overload pattern.
[2022-11-01] MEDS ORDERED: FUROSEMIDE 40 MG/4 ML VIAL ONE (13:18)
--- NOTE | 2022-11-01 13:34 | ER ---
Nurse's Notes [facility] Name: Erika Jacobson Age: 87 yrs Sex: Female : 1935 Arrival Date: 11/01/2022 Time: 10:04 Bed 19 Private MD: Diagnosis: Heart failure, unspecified;Acute pulmonary edema;Shortness of breath Presentation: 11/01 10:26 Chief complaint: Patient's son or daughter states: "She's been saying she can't breathe mb9 for the past 3 days. Walking and laying flat makes it worse. Rest and sitting up makes it better," Pt denies N/V/chest pain. Coronavirus screen: Vaccine status: Patient reports receiving the 2nd dose of the covid vaccine. Ebola Screen: No symptoms or risks identified at this time. Initial Sepsis Screen: Does the patient meet any 2 criteria? No. Patient's initial sepsis screen is negative. Does the patient have a suspected source of infection? No. Patient's initial sepsis screen is negative. Risk Assessment: Do you want to hurt yourself or someone else? Patient reports no desire to harm self or others. Onset of symptoms was November 01, 2022. 10:26 Method Of Arrival: Ambulatory mb9 10:26 Acuity: ISHAN 3 mb9 Historical: - Allergies: 10:27 No Known Allergies; mb9 - PMHx: 10:27 Asthma; Congestive heart failure; CVA; Hyperlipidemia; Hypertension; mb9 - PSHx: 10:27 choleycestectomy; hysterectomy; kidney stones; mb9 - Immunization history:: Adult Immunizations up to date. - Social history:: Smoking status: Patient denies any tobacco usage or history of. Screenin:46 [facility] ED Fall Risk Assessment (Adult) History of falling in the last 3 months, db including since admission No falls in past 3 months (0 pts) Mobility Assist Device Used Yes (1 pt) Score/Fall Risk Level 0 - 2 = Low Risk Oriented to surroundings, Maintained a safe environment. Abuse screen: Denies threats or abuse. Denies injuries from another. Nutritional screening: No deficits noted. Tuberculosis screening: No symptoms or risk factors identified. Assessment: 11:05 Reassessment: Patient appears in no apparent distress at this time. Patient and/or db family updated on plan of care and expected duration. Pain level reassessed. Patient is alert, oriented x 3, equal unlabored respirations, skin warm/dry/pink. PATIENT TO RESTROOM VIA WHEELCHAIR. General: Appears in no apparent distress. comfortable, Behavior is calm, cooperative. Pain: Complains of pain in right posterior lower lobe and left posterior lower lobe. Neuro: Level of Consciousness is awake, alert, obeys commands, Oriented to person, place, time, situation. Cardiovascular: Reports shortness of breath. Respiratory: Airway is patent Respiratory effort is even, unlabored, Respiratory pattern is regular, symmetrical. 12:00 Reassessment: Patient appears in no apparent distress at this time. Patient and/or db family updated on plan of care and expected duration. Pain level reassessed. Patient is alert, oriented x 3, equal unlabored respirations, skin warm/dry/pink. Cardiovascular: Rhythm is sinus rhythm. Respiratory: Airway is patent Breath sounds are clear. 12:45 Reassessment: PATIENT ASSISTED TO BEDSIDE COMMODE. db 13:00 Reassessment: Patient appears in no apparent distress at this time. No changes from db previously documented assessment. Patient and/or family updated on plan of care and expected duration. Pain level reassessed. Patient is alert, oriented x 3, equal unlabored respirations, skin warm/dry/pink. 13:48 Reassessment: PT IS EATING FOOD FROM HOME AT THIS TIME. db 14:50 Reassessment: PATIENT REQUESTS PURIWICK BECAUSE IS GOING UP AND DOWN TO BEDSIDE COMMODE.db 15:23 Reassessment: ATTEMPTED TO GIVE REPORT NURSE IS NOT ANSWERING PHONE. WILL CALL BACK. db 15:25 Reassessment: SPOKE TO NURSE WHO STATES IS NOT READY FOR REPORT. db 15:48 Reassessment: Patient appears in no apparent distress at this time. Patient and/or db family updated on plan of care and expected duration. Pain level reassessed. Patient is alert, oriented x 3, equal unlabored respirations, skin warm/dry/pink. REPORT GIVEN TO VIVIENNE GALVAN FOR 209. Vital Signs: 10:15 BP 147 / 77; Pulse 86; Resp 16; Pulse Ox 96% on R/A; db 10:26 BP 147 / 77; Pulse 89; Resp 18; Temp 98.2; Pulse Ox 98% on R/A; Weight 77.11 kg; Height mb9 5 ft. 5 in. ; 11:24 BP 153 / 66; Pulse 92; Resp 16; Pulse Ox 96% on R/A; db 13:40 BP 140 / 59; Pulse 86; Resp 16; Pulse Ox 95% on R/A; db 10:26 Body Mass Index 28.29 (77.11 kg, 165.1 cm) mb9 ED Course: 10:05 Patient arrived in ED. rg4 10:11 Gael Peres DO is Attending Physician. ms3 10:23 EKG done, by ED staff, reviewed by Gael Peres DO. em1 10:26 Arm band placed on. mb9 10:27 Triage completed. mb9 10:30 Samantha Long, RN is Primary Nurse. db 11:10 XRAY Chest (1 view) In Process Unspecified. EDMS 11:14 Patient has correct armband on for positive identification. Bed in low position. Call db light in reach. Side rails up X 1. Client placed on continuous cardiac and pulse oximetry monitoring. NIBP monitoring applied. Warm blanket given. 11:30 Initial lab(s) drawn, by ED staff, sent to lab. Inserted saline lock: 22 gauge in left db antecubital area, using aseptic technique. Blood collected. 12:25 CT Chest For PE Angio In Process Unspecified. EDMS 13:34 Chantale Garcia MD is Hospitalizing Provider. ms3 14:56 PURIWICK APPLIED FOR PATIENT COMFORT. NO SKIN BREAK DOWN NOTED. db 15:52 No provider procedures requiring assistance completed. Patient admitted, IV remains in db place. 15:52 Provided Education on: ADMISSION. db Administered Medications: 13:47 Drug: Furosemide IVP 40 mg IVP once; give over 2 minutes Route: IVP; Site: left db antecubital; 16:24 Follow up: Response: No adverse reaction db Medication: 15:52 VIS not applicable for this client. db Output: 15:23 Urine: 800ml (Voided); Total: 800ml. db Outcome: 13:34 Decision to Hospitalize by Provider. ms3 15:52 Admitted to ER Hold. [facility]. db 15:52 Condition: stable 15:52 Instructed on the need for admit, 16:24 Patient left the ED. db Signatures: Dispatcher [employer] EDMS Shiv Barnard em1 Christine Dyson rg4 Gael Peres DO DO ms3 Samantha Long, RN RN db Ignacia, Cathy Guzman RN RN mb9
--- NOTE | 2022-11-01 13:34 | EDPHYS ---
Physician Documentation [facility] Name: Erika Jacobson Age: 87 yrs Sex: Female : 1935 Arrival Date: 11/01/2022 Time: 10:04 Bed 19 Private MD: ED Physician Gael Peres HPI: 11/01 10:59 This 87 yrs old Female presents to ER via Ambulatory with complaints of ms3 Palpitations, Shortness Of Breath. 10:59 87-year-old female with past medical history of asthma, congestive heart failure, CVA, ms3 hyperlipidemia, hypertension presents with her son for shortness of breath that has been ongoing for 3 days. Patient's son notes shortness of breath became worse today causing patient to want to come to the emergency department. Patient denies chest pain. Patient states that shortness of breath is worse with walking and better with rest. Historical: - Allergies: 10:27 No Known Allergies; mb9 - PMHx: 10:27 Asthma; Congestive heart failure; CVA; Hyperlipidemia; Hypertension; mb9 - PSHx: 10:27 choleycestectomy; hysterectomy; kidney stones; mb9 - Immunization history:: Adult Immunizations up to date. - Social history:: Smoking status: Patient denies any tobacco usage or history of. ROS: 10:59 Constitutional: Negative for fever, and chills. Neck: Negative for injury, pain, and ms3 swelling, Cardiovascular: Negative for chest pain, and palpitations. 10:59 Abdomen/GI: Negative for abdominal pain, nausea, vomiting, diarrhea, and constipation, MS/Extremity: Negative for injury and deformity, Skin: Negative for injury, rash, and discoloration, 10:59 Respiratory: Positive for shortness of breath, 10:59 All other systems are negative, Exam: 10:59 Constitutional: This is a well developed, well nourished patient who is awake, alert, ms3 and in no acute distress. Head/Face: Normocephalic, atraumatic. Neck: Trachea midline, no cervical lymphadenopathy. Supple, full range of motion without nuchal rigidity, or vertebral point tenderness. No Meningismus. Chest/axilla: Normal chest wall appearance and motion. Nontender with no deformity. Cardiovascular: Regular rate and rhythm with a normal S1 and S2. No gallops, murmurs, or rubs. Normal PMI, no JVD. No pulse deficits. 10:59 Skin: Warm, dry with normal turgor. Normal color with no rashes, no lesions, and no evidence of cellulitis. 10:59 Respiratory: the patient does not display signs of respiratory distress, Respirations: normal, Breath sounds: rales, that are mild, are heard in the left posterior lower lobe and right posterior lower lobe, 10:59 Musculoskeletal/extremity: Mild pedal edema. 11:35 ECG was reviewed by the Attending Physician. ms3 Vital Signs: 10:15 BP 147 / 77; Pulse 86; Resp 16; Pulse Ox 96% on R/A; db 10:26 BP 147 / 77; Pulse 89; Resp 18; Temp 98.2; Pulse Ox 98% on R/A; Weight 77.11 kg; Height mb9 5 ft. 5 in. ; 11:24 BP 153 / 66; Pulse 92; Resp 16; Pulse Ox 96% on R/A; db 13:40 BP 140 / 59; Pulse 86; Resp 16; Pulse Ox 95% on R/A; db 10:26 Body Mass Index 28.29 (77.11 kg, 165.1 cm) mb9 MDM: 10:30 Patient medically screened. ms3 10:59 Differential diagnosis: dehydration, stress disorder, Pneumonia versus congestive heart ms3 failure versus pulmonary edema. 11:19 Independent interpretation of the following test(s) in the Emergency Department X-Ray: ms3 My interpretation is CXR image reviewed by me shows bilateral lower lobe pulmonary edema. 13:34 Data reviewed: vital signs, nurses notes, lab test result(s), radiologic studies, and ms3 as a result, I will discharge patient. Consideration of Admission/Observation Patient was admitted/placed on observation. Management of patient was discussed with the following: Hospitalist: . I considered the following discharge prescriptions or medication management in the emergency department Medications were administered in the Emergency Department. See MAR. Historians other than the Patient: Daughter/Son: Son. Care significantly affected by the following chronic conditions: Hypertension, Congestive Heart Failure. Counseling: I had a detailed discussion with the patient and/or guardian regarding the historical points, exam findings, and any diagnostic results supporting the discharge/admit diagnosis, lab results, radiology results, the need for further work-up and treatment in the hospital. ED course: Discussed necessity of admission with patient. Patient understands agrees plan. All questions were answered. 11/01 10:30 Order name: Basic Metabolic Panel; Complete Time: 12:07 ms3 11/01 10:30 Order name: CBC with Diff; Complete Time: 12:07 ms3 11/01 10:30 Order name: D-Dimer; Complete Time: 12:07 ms3 11/01 10:30 Order name: LFT's; Complete Time: 12:07 ms3 11/01 10:30 Order name: Magnesium; Complete Time: 12:07 ms3 11/01 10:30 Order name: NT PRO-BNP; Complete Time: 12:07 ms3 11/01 10:30 Order name: Troponin HS; Complete Time: 12:07 ms3 11/01 14:31 Order name: Magnesium EDMS 11/01 14:31 Order name: Phosphorus EDMS 11/01 14:31 Order name: Urinalysis w/ reflexes EDMS 11/01 14:31 Order name: Basic Metabolic Panel EDMS 11/01 14:31 Order name: Basic Metabolic Panel EDMS 11/01 14:31 Order name: CBC with Automated Diff EDMS 11/01 14:31 Order name: CBC with Automated Diff EDMS 11/01 14:31 Order name: NT PRO-BNP EDMS 11/01 14:31 Order name: NT PRO-BNP EDMS 11/01 10:30 Order name: XRAY Chest (1 view); Complete Time: 12:07 ms3 11/01 12:08 Order name: CT Chest For PE Angio; Complete Time: 13:01 ms3 11/01 10:30 Order name: EKG; Complete Time: 10:31 ms3 11/01 14:28 Order name: Heart Healthy EDMS 11/01 10:30 Order name: Cardiac monitoring; Complete Time: 12:48 ms3 11/01 10:30 Order name: EKG - Nurse/Tech; Complete Time: 12:48 ms3 11/01 10:30 Order name: IV Saline Lock; Complete Time: 12:48 ms3 11/01 10:30 Order name: Labs collected and sent; Complete Time: 12:48 ms3 11/01 10:30 Order name: O2 Per Protocol; Complete Time: 12:48 ms3 11/01 10:30 Order name: O2 Sat Monitoring; Complete Time: 12:48 ms3 EC:35 Rate is 93 beats/min. Rhythm is regular. Left axis deviation noted. OH interval is ms3 normal. QRS interval is prolonged. Clinical impression: NSR with LBBB. Interpreted by me. Reviewed by me. Administered Medications: 13:47 Drug: Furosemide IVP 40 mg IVP once; give over 2 minutes Route: IVP; Site: left db antecubital; 16:24 Follow up: Response: No adverse reaction db Disposition Summary: 11/01/22 13:34 Hospitalization Ordered Notes: Hospitalization Status: Inpatient Admission ms3 Provider: Chantale Garcia ms3 Location: Telemetry/MedSurg (Inpatient) ms3 Condition: Stable ms3 Problem: new ms3 Symptoms: are unchanged ms3 Bed/Room Type: Standard ms3 Room Assignment: 209(11/01/22 15:46) bd Diagnosis - Heart failure, unspecified ms3 - Acute pulmonary edema ms3 - Shortness of breath ms3 Forms: - Medication Reconciliation Form ms3 - SBAR form ms3 - Leadership Thank You Letter ms3 Signatures: Dispatcher [employer] EDMS Kym Jane Jose RN RN ja1 Gael Peres DO DO ms3 Samantha Long RN RN Cathy Noble RN RN mb9 Corrections: (The following items were deleted from the chart) 15:01 13:34 ms3 [facility] 15:46 15:01 214 ja1 bd
[2022-11-01] MEDS ORDERED: HYDROCODONE/APAP 5/325 MG TAB PO PRN (14:24)
[2022-11-01] MEDS ORDERED: ACETAMINOPHEN 325 MG TABLET PO PRN (14:24)
[2022-11-01] MEDS ORDERED: ONDANSETRON 4 MG/2 ML VIAL IV PRN (14:27)
--- NOTE | 2022-11-01 14:30 | P.HP ---
Certification for Inpatient Patient admitted to: Inpatient With expected LOS: >2 Midnights Patient will require the following post-hospital care: None Practitioner: I am a practitioner with admitting privileges, knowledge of patient current condition, hospital course, and medical plan of care. Services: Services provided to patient in accordance with Admission requirements found in Title 42 Section 412.3 of the Code of Federal Regulations <Jolene Salas - Last Filed: 11/01/22 16:51> Patient History Date of Service: 11/01/22 Reason for admission: SOB History of Present Illness: Patient is an 64-xmng-edv-year-old female with a past medical history significant for asthma, CVA, hyperlipidemia, hypertension, CHF who presents with complaint of shortness of breath that has been ongoing for the past 2 days. Patient reported associated signs and symptoms of bilateral lower extremity swelling and cough. Patient denies any other signs and symptoms. Symptoms are aggravated by exertion and relieved by nothing. Patient was brought to the hospital for medical evaluation. - Past Medical/Surgical History Diabetic: No -: Hypertension -: Dyslipidemia -: CVA -: kidney stones -: Asthma -: Diastolic heart failure -: Prediabetes -: Cholecystectomy Psychosocial/ Personal History: Patient lives at home with her children. - Social History Smoking Status: Never smoker Alcohol use: No CD- Drugs: No Caffeine use: Yes Place of Residence: Home <Jolene Salas - Last Filed: 11/01/22 16:51> Date of Service: 11/01/22 <Chantale Garcia - Last Filed: 11/01/22 23:51> Allergies No Known Allergies Allergy (Verified 09/03/18 08:32) Home Medications: Aspirin Chewable [Aspirin Chewable*] 81 mg PO DAILY 02/15/22 Atorvastatin Calcium [Lipitor*] 20 mg PO BEDTIME 02/15/22 Losartan Potassium [Cozaar] 25 mg PO DAILY 02/15/22 carvediloL [Coreg*] 6.25 mg PO BID 02/15/22 Ipratropium/Albuterol Sulfate [Iprat-Albut 0.5-3(2.5) mg/3 ml] 3 ml IH Q6H PRN #120 amp 05/09/22 Nebulizer 1 each MC QID #1 ea 05/09/22 Furosemide 40 mg PO BID 08/28/22 Iron 18 mg PO DAILY 08/28/22 Spironolactone 25 mg PO DAILY 11/01/22 Review of Systems General: Unremarkable Eyes: Unremarkable ENT: Unremarkable Respiratory: Cough, Shortness of Breath Cardiovascular: Unremarkable Gastrointestinal: Unremarkable Genitourinary: Unremarkable Musculoskeletal: Pedal edema Integumentary: Unremarkable Neurological: Unremarkable Lymphatics: Unremarkable <Jolene Salas - Last Filed: 11/01/22 16:51> Physical Examination - Physical Exam General: Alert, In no apparent distress, Cooperative HEENT: Atraumatic, PERRLA, Mucous membr. moist/pink, EOMI, Sclerae nonicteric Neck: Supple, 2+ carotid pulse no bruit, No LAD, Without JVD or thyroid abnormality Respiratory: Diminished Cardiovascular: Regular rate/rhythm, Normal S1 S2, Edema Capillary refill: <2 Seconds Gastrointestinal: Normal bowel sounds, No tenderness Musculoskeletal: No clubbing, No swelling, No tenderness Integumentary: No rashes, No significant lesion Neurological: Normal speech, Normal tone, Normal affect Lymphatics: No axilla or inguinal lymphadenopathy - Studies Laboratory Data (last 24 hrs) 11/01/22 11/01/22 11:25 11:25 WBC 9.50 Hgb 13.2 Hct 39.6 Plt Count 300 Sodium 138 Potassium 3.7 BUN 10 Creatinine 0.67 Glucose 119 H Magnesium 2.3 Total Bilirubin 0.6 AST 19 ALT 23 Alkaline Phosphatase 129 H <Jolene Salas - Last Filed: 11/01/22 16:51> - Studies Laboratory Data (last 24 hrs) 11/01/22 11/01/22 11:25 11:25 WBC 9.50 Hgb 13.2 Hct 39.6 Plt Count 300 Sodium 138 Potassium 3.7 BUN 10 Creatinine 0.67 Glucose 119 H Magnesium 2.3 Total Bilirubin 0.6 AST 19 ALT 23 Alkaline Phosphatase 129 H <Chantale Garcia - Last Filed: 11/01/22 23:51> Assessment and Plan - Plan --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 CT imaging indicates Mild to moderate CHF versus volume overload pattern. Continue diuresis with Lasix. Daily weight and strict I/O. --Moderate persistent asthma with acute exacerbation. Continue neb treatment with albuterol\Atrovent and O2 therapy. --Hyperlipidemia. Continue statin. -- Elevated D-dimer. CTA PE protocol does not indicate any PE. Continue supportive care. --History of CVA. Continue aspirin and statin. --Hypertension. Poorly controlled. Continue home medications and hydralazine as needed. --CKD 2. Stable. We will continue to monitor renal function. --Hypokalemia. Replete as needed. --AB. Continue home medication --DVT prophylaxis with heparin subQ. Discharge Plan: Home Plan to discharge in: Greater than 2 days - Advance Directives Does patient have a Living Will: No Does patient have a Durable POA for Healthcare: No - Code Status/Comfort Care Code Status Assessed: Yes Physician Review: Patient Assessed, Agree with Above Assessment and Plan Critical Care: No <Jolene Salas - Last Filed: 11/01/22 16:51> Date of Service: 11/01/22 Agree with findings as mentioned above. Chart has been reviewed, patient has been examined. Agree with findings as mentioned above. <Chantale Garcia - Last Filed: 11/01/22 23:51>
[2022-11-01] MEDS ORDERED: HYDRALAZINE HCL 20 MG/ML VIAL IV PRN (16:42)
[2022-11-01 16:58] VITALS: BMI 28.1
[2022-11-01] MEDS: ENOXAPARIN 40 MG/0.4 ML SQ SCH (17:19)
[2022-11-01] MEDS: FUROSEMIDE 40 MG/4 ML VIAL IV SCH (17:19)
[2022-11-01 17:56] LABS: Magnesium 2.4 mg/dL (1.6-2.4); Phosphorus 3.9 mg/dL (2.5-4.9)
[2022-11-01] MEDS: IPRATROPIUM BROM 0.5MG/2.5ML NEB SCH (20:00)
[2022-11-01] MEDS: ALBUTEROL 2.5 MG/3 ML NEB SOL NEB SCH (20:00)
[2022-11-01] MEDS ORDERED: ATORVASTATIN 20 MG TAB PO SCH (21:00)
[2022-11-01] MEDS ORDERED: SPIRONOLACTONE 25 MG TABLET PO SCH (21:00)
[2022-11-01] MEDS: carvediloL 6.25 MG TAB PO SCH (21:19)
[2022-11-02] MEDS: IPRATROPIUM BROM 0.5MG/2.5ML NEB SCH ×3 (01:45→14:05)
[2022-11-02] MEDS: ALBUTEROL 2.5 MG/3 ML NEB SOL NEB SCH ×3 (01:45→14:05)
[2022-11-02 03:24] LABS: Absolute Lymphocytes (CBC) 2.2 K/uL (0.7-4.9); Hematocrit 37.8 % (36.0-45.0); Lymphocytes % 29.6 % (15.3-44.8); MCV 79.6 fL (80-100); MPV 8.6 fL (7.6-11.3); Platelets 269 thou/uL (152-406); RBC Red Blood Cell Count 4.74 M/uL (3.86-4.86)
[2022-11-02 03:43] LABS: Potassium 3.2 mEq/L (3.5-5.1)
[2022-11-02 08:23] LABS: Specific Gravity 1.025 (1.005-1.030); Urine Bacteria 20-50 /HPF (<20); Urine Bilirubin NEGATIVE (Negative); Urine Blood Negative (Negative); Urine Clarity Extremely Turbid (Clear); Urine Color Light-Yellow (Yellow); Urine Glucose NEGATIVE (Negative); Urine Protein NEGATIVE (Negative); Urine RBC <5 /HPF (None Seen); Urine Urobilinogen Normal (Normal); Urine pH 7.5 (5.0-7.0)
[2022-11-02] MEDS ORDERED: carvediloL 6.25 MG TAB PO SCH (09:00)
[2022-11-02] MEDS ORDERED: SPIRONOLACTONE 25 MG TABLET PO SCH (09:00)
[2022-11-02] MEDS ORDERED: ASPIRIN 81 MG CHEWABLE TABLET PO SCH (09:00)
[2022-11-02] MEDS ORDERED: HOME MED 1 EA UNK (Iron [Iron] 18 MG Tablet) PO SCH (09:00)
[2022-11-02] MEDS: carvediloL 6.25 MG TAB PO SCH (09:48)
[2022-11-02] MEDS: ENOXAPARIN 40 MG/0.4 ML SQ SCH (09:48)
[2022-11-02] MEDS: FUROSEMIDE 40 MG/4 ML VIAL IV SCH ×2 (09:49→16:11)
[2022-11-02 11:08] VITALS: O2SAT 94
[2022-11-02 12:41] VITALS: BP 113/56; TEMP 98.2
--- NOTE | 2022-11-02 14:36 | EKG ---
Test Date: 2022-11-01 Test Time: 10:15:05 Clinical Unit Educator: MARK MEASUREMENT RESULTS: Intervals: Rate: 93 MT: 176 QRSD: 142 QT: 416 QTc: 517 Watson: P: 80 MT: 176 QRS: -63 T: 75 INTERPRETIVE STATEMENTS: Sinus rhythm with marked sinus arrhythmia Left axis deviation Left bundle branch block Abnormal ECG Compared to ECG 08/28/2022 05:23:58 Sinus tachycardia no longer present Electronically Signed On 11-02-22 14:32:25 CDT by Preston Tubbs
== END 2022-11-02 16:42 | disposition home or self-care (01) ==
LOC: ER 10:04 → ERHOLD 14:23 → INTOOBSV 14:23 → 2ND 15:49
PROVIDERS: ADMIT Hospitalist; ATTEND Hospitalist
DX: I50.43 Acute on chronic combined systolic (congestive) and diastolic (congestive) heart failure (principal); J45.41 Moderate persistent asthma with (acute) exacerbation; J81.0 Acute pulmonary edema; N18.2 Chronic kidney disease, stage 2 (mild); E78.5 Hyperlipidemia, unspecified; E87.6 Hypokalemia; D50.9 Iron deficiency anemia, unspecified; R79.1 Abnormal coagulation profile; Z86.73 Personal history of transient ischemic attack (TIA), and cerebral infarction without residual deficits
CPT/HCPCS: 93005; 85025 ×2; 81001; 80048 ×2; 36415; 83735 ×2; 84100; 85379; 80076; 84484; 83880 ×2; 71275; 71045; 94640; 96374; 99285; Q9967; J1940 ×4; J7613 ×3; J7644 ×3; J1650 ×2; G0378

== ENCOUNTER 2022-11-17 06:43 | Inpatient (IN) | payer OTHER ==
[2022-11-17 07:02] LABS: Arterial Blood Carboxyhemoglob 0.4 % (0-1.5); Blood Gas Oxyhemoglobin 97.3 % (94-97)
--- OUTSIDE RECORDS SUMMARY | 2022-11-17 07:13 | XMS REPORT | Continuity of Care Document ---
:1935 Author Organization [facility] t Address [address] [facility] [address] [place] [address] Care Team Providers Name Role Phone Joce MURGUIA, Austin Goyal Primary Care Physician [phone] LILIANA LI Attending Clinician Unavailable TERESITA SENDBEKAH K.H. Attending Clinician Unavailable ANGELA CUNNINGHAM Attending Clinician Unavailable ANGELA CUNNINGHAM Attending Clinician Unavailable JOHNNIE FINNEY Attending Clinician Unavailable Lab, Ang - Db Attending Clinician Unavailable Ceci Lo MD K.H. Attending Clinician 2, Adc Lab Attending Clinician Unavailable WON MATT Attending Clinician Unavailable WON MATT Attending Clinician Unavailable Doctor Unassigned, [place] Attending Clinician Unavailable Pob, Adc Lab Main Attending Clinician Unavailable Samreen Lee LMSW Attending Clinician VALERIE GOODWIN Attending Clinician Unavailable Estuardo Morales MD Attending Clinician Kayla Hui MD Attending Clinician Sharyn Quispe MD Attending Clinician Rachel MURGUIA, Dane Alex Attending Clinician [phone] Radha MURGUIA, Catherine Attending Clinician Nelly MURGUIA, Valerie No Attending Clinician Jace MURGUIA, Won Serra Attending Clinician Nurse, Ang-Db Neurology Attending Clinician Unavailable Unknown, Attending Attending Clinician Unavailable Nirmala COMPUTER TEACHER, Araseli Attending Clinician Ebgwendolyn COMPUTER TEACHER, Tamela Attending Clinician EBTAMELA MEADE Attending Clinician Unavailable CHARY DONALD Attending Clinician Unavailable Chary Infante Attending Clinician DANIEL PÉREZ Attending Clinician Unavailable Ree Mccartney MD Attending Clinician Only, Thom Db Test Attending Clinician Unavailable Rambo GLASS, Tera Attending Clinician TERA MORALES Attending Clinician Unavailable KALYN PARADA Attending Clinician Unavailable Lyla GLASS, Amaya Attending Clinician Gerardo Tee MD Attending Clinician Cristobal PALAFOX, Pamela Roman Attending Clinician Unavailable Joce MURGUIA, Austin Goyal Attending Clinician AUSTIN HOBSON Attending Clinician Unavailable JESSICA ERIC Attending Clinician Unavailable AMAYA RUSS Attending Clinician Unavailable Jessica Alvarez Attending Clinician Vaccine, Ang Db Cbc Fam Attending Clinician Unavailable Daniel Pérez MD Attending Clinician Lab, Adc Fam Pob I Attending Clinician Unavailable Provider, [facility] Attending Clinician Unavailable Mine Blair Attending Clinician MINE NO Attending Clinician Unavailable Ethan Scott DO Attending Clinician 1, Adc Lab Attending Clinician Unavailable Renata Thacker Attending Clinician Unavailable Mirella Villalobos Attending Clinician [phone] Shy Miller Attending Clinician Unavailable LILIANA LI Admitting Clinician Unavailable KAYLA HUI Admitting Clinician Unavailable WON MATT Admitting Clinician Unavailable AUSTIN HOBSON Admitting Clinician Unavailable ADRIANA HARTMANN Admitting Clinician Unavailable Payers Payer Name Policy Type Policy Number Effective Date Expiration Date S kim AARP/MEDICARE [id number] 2019 COMPLETE 00:00:00 [employer] [id number] 2019 MEDICARE 00:00:00 ADVANTAGE [place]ICA[place] [id number] 2017 [place] 00:00:00 [facility] [id number] 2019 2020 [facility] 00:00:00 00:00:00 Community MEDICARE [facility]GD [facility] CARE Problems Condition Condition Condition Status Onset Resolution Last Treating Co mments Source Name Details Category Date Date Treatment Clinician Date Respirator Respirator Disease [facility]re [facility] failure y failure nce 4-15 Luke s 00:00: [address] Chronic Chronic Disease Active Univers diastolic diastolic 9-12 ity of heart heart 00:00: [place] failure failure 00 Medical Branch Obesity Obesity Disease Active Univers (BMI (BMI 5-28 ity of 30-39.9) 30-39.9) 00:00: [place] 00 Medical Branch Uses Uses Disease Active Univers Japanese as Japanese as -28 it y of primary primary [...] Right Right Disease Active Univers lower lower - ity of quadrant quadrant 00:00: [place] abdominal abdominal 00 Medi angleica pain pain Branch Venous Venous Disease Active 2020-02 Univers reflux reflux 2-09 ity of 00:00: [place] 00 Medical Branch Edema of Edema of Disease Active 2020-02 Unive rs both legs both legs 2-09 ity of 00:00: [place] 00 Medical Branch Decreased Decreased Disease Active 2020-02 Uni vers appetite appetite 2-06 ity of 00:00: Medical Branch Asthma in Asthma in Disease [...] impairment impairment 9-25 it y of 00:00: [place] [facility] Hair loss Hair loss Disease [...] of feet feet 00:00: [place] [facility] Sepsis Sepsis Disease [facility] Abdominal Abdominal Disease Active [facility] pain pain [facility]25 [facility]: Medical 00 Center Hypertensi [...] Univers stone stone 0-15 ity of 00:00: [place] 00 Medical Branch Abnormal Abnormal Disease Active 2017-02 Overview: Un briana liver liver 0-15 Formattin ity of ultrasound ultrasound 00:00: g of this note Medical might be Branch different from the original. 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 0-05 it y of 2 diabetes 2 [place] 00 [facility] Essential Essential Disease Active 2016-02 Uni vers hypertensi hypertensi 0-02 it y of on on 00:00: [place] [address] Medical Branch HLD HLD Disease Active 2016-02 Univers (hyperlipi (hyperlipi 0-02 it y of demia) demia) 00:00: [place] [address] Medical Branch History of History of Disease Active 2016-02 U nivers chest pain chest pain 0-02 it y of 00:00: [place] [address] Medical Branch Palpitatio Palpitatio Disease Active 2016-02 U nivers ns ns 0-02 ity of 00:00: [address] Branch Osteoporos Osteoporos Disease Active U nivers is is ity of [facility] Abnormal Abnormal Disease Active Unive rs EKG EKG ity of [facility] Allergies, Adverse Reactions, Alerts Allergy Allergy Status Severity Reaction(s) Onset Inactive Treating Comm ents Source Name Type Date Date Clinician NO KNOWN Drug Active Univers ALLERGIE Class ity of S [facility] NO KNOWN Allergy Active [facility] Social History Social Habit Start Date Stop Date Quantity Comments Source Gender identity Universit y of [facility] Sexual orientation Univer sity of [facility] History SDOH [facility] Alcohol Comment Medical C enter History SDOH [facility] Alcohol Binge Medical Marilyn ter History SDOH [facility] Alcohol Std Drinks [facility] Exposure to 2022-07-02 2022-07-12 Not sure University SARS-CoV-2 (event) 00:00:00 14:22:00 [facility] History of Social 2022-06-09 2022-06-09 Univers ity of function 00:00:00 00:00:00 [facility] Alcohol intake 2019-07-12 2019-07-[address] [facility] 00:00:00 00:00:00 non-drinker of Medical Ce nter alcohol (finding) History SDOH 2019-07-10 2019-07-[address] [facility] Alcohol Frequency 00:00:00 00:00:00 [facility] Tobacco use and 2019-07-09 2019-07-09 Smokeless MOISES Lafleur exposure 00:00:00 00:00:00 tobacco non-user [facility] Sex Ass[birth year] At [birth year] MOISES Lafleur 00:00:00 00:00:00 [facility] Smoking Status Start Date Stop Date Source Never smoked tobacco [facility] Medications Ordered Filled Start Stop Current Ordering Indication Dosage Frequency Signature Comments Components Source Medication Medication Date Date Medication? Clinician (SIG) Name Name atorfostertaivis Yes [id number] 10mg Take 0.5 Univers n 20 mg 9-29 tablets by ity of tablet 00:00: mouth at [place] [address] bedtime. Medical Branch atorvastati Yes [id number] 10mg Take 0.5 Univers n 20 mg 9-29 tablets by ity of tablet 00:00: mouth at [place] [address] bedtime. Medical Branch atorvastati Yes [id number] 10mg Take 0.5 Univers n 20 mg 9-29 tablets by ity of tablet 00:00: mouth at [place] [address] bedtime. Medical Branch atorvastati Yes [id number] 10mg Take 0.5 Univers n 20 mg 9-29 tablets by ity of tablet 00:00: mouth at [place] [address] bedtime. Medical Branch ipratropium 2022-0 Yes [id number] .5mg Inhale 2.5 Univers 0.02 % 8-17 mL every 6 ity of nebulizer 00:00: (six) [place] solution 00 hours as Medical needed for Branch Wheezing or Shortness of Breath. ipratropium 3-0 Yes [id number] .5mg Inhale 2.5 Univers 0.02 % 8-17 mL every 6 ity of nebulizer 00:00: (six) [place] solution 00 hours as Medical needed for Branch Wheezing or Shortness of Breath. ipratropium 2023-0 Yes [id number] .5mg Inhale 2.5 Univers 0.02 % 8-17 mL every 6 ity of nebulizer 00:00: (six) [place] solution 00 hours as Medical needed for Branch Wheezing or Shortness of Breath. ipratropium 2023-0 Yes [id number] .5mg Inhale 2.5 Univers 0.02 % 8-17 mL every 6 ity of nebulizer 00:00: (six) [place] solution 00 hours as Medical needed for Branch Wheezing or Shortness of Breath. ipratropium 2023-0 Yes [id number] .5mg Inhale 2.5 Univers 0.02 % 8-17 mL every 6 ity of nebulizer 00:00: (six) [place] solution 00 hours as Medical needed for Branch Wheezing or Shortness of Breath. ipratropium 2023-0 Yes [id number] .5mg Inhale 2.5 Univers 0.02 % 8-17 mL every 6 ity of nebulizer 00:00: (six) [place] solution 00 hours as Medical needed for Branch Wheezing or Shortness of Breath. ipratropium 2023-0 Yes [id number] .5mg Inhale 2.5 Univers 0.02 % 8-17 mL every 6 ity of nebulizer 00:00: (six) [place] solution 00 hours as Medical needed for Branch Wheezing or Shortness of Breath. ipratropium 2023-0 Yes [id number] .5mg Inhale 2.5 Univers 0.02 % 8-17 mL every 6 ity of nebulizer 00:00: (six) [place] solution 00 hours as Medical needed for Branch Wheezing or Shortness of Breath. ipratropium 2023-0 Yes [id number] .5mg Inhale 2.5 Univers 0.02 % 8-17 mL every 6 ity of nebulizer 00:00: (six) [place] solution 00 hours as Medical needed for Branch Wheezing or Shortness of Breath. ipratropium 2023-0 Yes [id number] .5mg Inhale 2.5 Univers 0.02 % 8-17 mL every 6 ity of nebulizer 00:00: (six) [place] solution 00 hours as Medical needed for Branch Wheezing or Shortness of Breath. Nut.[place].Gluc 3-0 Yes [id number] 1{box} Take 1 Box Univers .Intol,Lac- 7-27 by mouth 2 it y of Free,Soy 00:00: (two) [place] (GLUCERNA 00 times Medical THERAPEUTIC daily. Branch NUTRITION) liquid Nut.[place].Gluc 2022-0 Yes [id number] 1{box} Take 1 Box Univers .Intol,Lac- 7-27 by mouth 2 it y of Free,Soy 00:00: (two) [place] (GLUCERNA 00 times Medical THERAPEUTIC daily. Branch NUTRITION) liquid Nut.[place].Gluc 2022-0 Yes [id number] 1{box} Take 1 Box Univers .Intol,Lac- 7-27 by mouth 2 it y of Free,Soy 00:00: (two) [place] (GLUCERNA 00 times Medical THERAPEUTIC daily. Branch NUTRITION) liquid Nut.[place].Gluc 2022-0 Yes [id number] 1{box} Take 1 Box Univers .Intol,Lac- 7-27 by mouth 2 it y of Free,Soy 00:00: (two) [place] (GLUCERNA 00 times Medical THERAPEUTIC daily. Branch NUTRITION) liquid Nut.[place].Gluc 2022-0 Yes [id number] 1{box} Take 1 Box Univers .Intol,Lac- 7-27 by mouth 2 it y of Free,Soy 00:00: (two) [place] (GLUCERNA 00 times Medical THERAPEUTIC daily. Branch NUTRITION) liquid Nut.[place].Gluc 2022-0 Yes [id number] 1{box} Take 1 Box Univers .Intol,Lac- 7-27 by mouth 2 it y of Free,Soy 00:00: (two) [place] (GLUCERNA 00 times Medical THERAPEUTIC daily. Branch NUTRITION) liquid Nut.[place].Gluc 2022-0 Yes [id number] 1{box} Take 1 Box Univers .Intol,Lac- 7-27 by mouth 2 it y of Free,Soy 00:00: (two) [place] (GLUCERNA 00 times Medical THERAPEUTIC daily. Branch NUTRITION) liquid Nut.[place].Gluc 2022-0 Yes [id number] 1{box} Take 1 Box Univers .Intol,Lac- 7-27 by mouth 2 it y of Free,Soy 00:00: (two) [place] (GLUCERNA 00 times Medical THERAPEUTIC daily. Branch NUTRITION) liquid Nut.[place].Gluc 2022-0 Yes [id number] 1{box} Take 1 Box Univers .Intol,Lac- 7-27 by mouth 2 it y of Free,Soy 00:00: (two) [place] (GLUCERNA 00 times Medical THERAPEUTIC daily. Branch NUTRITION) liquid Nut.[place].Gluc 2022-0 Yes [id number] 1{box} Take 1 Box Univers .Intol,Lac- 7-27 by mouth 2 it y of Free,Soy 00:00: (two) [place] (GLUCERNA 00 times Medical THERAPEUTIC daily. Branch NUTRITION) liquid Nut.[place].Gluc 2022-0 Yes [id number] 1{box} Take 1 Box Univers .Intol,Lac- 7-27 by mouth 2 it y of Free,Soy 00:00: (two) [place] (GLUCERNA 00 times Medical THERAPEUTIC daily. Branch NUTRITION) liquid Nut.[place].Gluc 2022-0 Yes [id number] 1{box} Take 1 Box Univers .Intol,Lac- 7-27 by mouth 2 it y of Free,Soy 00:00: (two) [place] (GLUCERNA 00 times Medical THERAPEUTIC daily. Branch NUTRITION) liquid Nut.[place].Gluc 2022-0 Yes [id number] 1{box} Take 1 Box Univers .Intol,Lac- 7-27 by mouth 2 it y of Free,Soy 00:00: (two) [place] (GLUCERNA 00 times Medical THERAPEUTIC daily. Branch NUTRITION) liquid Nut.[place].Gluc 2022-0 Yes [id number] 1{box} Take 1 Box Univers .Intol,Lac- 7-27 by mouth 2 it y of Free,Soy 00:00: (two) [place] (GLUCERNA 00 times Medical THERAPEUTIC daily. Branch NUTRITION) liquid Nut.[place].Gluc 2022-0 Yes [id number] 1{box} Take 1 Box Univers .Intol,Lac- 7-27 by mouth 2 it y of Free,Soy 00:00: (two) [place] (GLUCERNA 00 times Medical THERAPEUTIC daily. Branch NUTRITION) liquid Nut.[place].Gluc 2022-0 Yes [id number] 1{box} Take 1 Box Univers .Intol,Lac- 7-27 by mouth 2 it y of Free,Soy 00:00: (two) [place] (GLUCERNA 00 times Medical THERAPEUTIC daily. Branch NUTRITION) liquid Nut.[place].Gluc 2022-0 Yes [id number] 1{box} Take 1 Box Univers .Intol,Lac- 7-27 by mouth 2 it y of Free,Soy 00:00: (two) [place] (GLUCERNA 00 times Medical THERAPEUTIC daily. Branch NUTRITION) liquid Nut.Tx.Gluc 2022-0 Yes [id number] 1{box} Take 1 Box Univers .Intol,Lac- 7-27 by mouth 2 it y of Free,Soy 00:00: (two) [place] (GLUCERNA 00 times Medical THERAPEUTIC daily. Branch NUTRITION) liquid spironolact 2023-0 Yes 12.5mg Take 0.5 Univers one 25 mg 7-18 tablets by ity of tablet 00:00: mouth 2 [place] (two) Medical times Branch daily. spironolact 2023-0 Yes 12.5mg Take 0.5 Univers one 25 mg 7-18 tablets by ity of tablet 00:00: mouth [place] (two) Medical times Branch daily. spironolact 2023-0 Yes 12.5mg Take 0.5 Univers one 25 mg 7-18 tablets by ity of tablet 00:00: mouth [place] (two) Medical times Branch daily. spironolact 2023-0 Yes 12.5mg Take 0.5 Univers one 25 mg 7-18 tablets by ity of tablet 00:00: mouth [place] (two) Medical times Branch daily. spironolact 2023-0 Yes 12.5mg Take 0.5 Univers one 25 mg 7-18 tablets by ity of tablet 00:00: mouth [place] (two) Medical times Branch daily. spironolact 2023-0 Yes 12.5mg Take 0.5 Univers one 25 mg 7-18 tablets by ity of tablet 00:00: mouth [place] (two) Medical times Branch daily. spironolact 2023-0 Yes 12.5mg Take 0.5 Univers one 25 mg 7-18 tablets by ity of tablet 00:00: mouth [place] (two) Medical times Branch daily. spironolact 2023-0 Yes 12.5mg Take 0.5 Univers one 25 mg 7-18 tablets by ity of tablet 00:00: mouth [place] (two) Medical times Branch daily. spironolact 2023-0 Yes 12.5mg Take 0.5 Univers one 25 mg 7-18 tablets by ity of tablet 00:00: mouth [place] (two) Medical times Branch daily. spironolact 2023-0 Yes 12.5mg Take 0.5 Univers one 25 mg 7-18 tablets by ity of tablet 00:00: mouth 2 [place] 00 (two) Medical times Branch daily. spironolact 2023-0 Yes 12.5mg Take 0.5 Univers one 25 mg 7-18 tablets by ity of tablet 00:00: mouth 2 [place] 00 (two) Medical times Branch daily. albuterol 2022-0 Yes [id number] 2.5mg Inhale 3 Univers 2.5 mg /3 6-27 mL every 8 ity of mL (0.083 00:00: (eight) [place] %) 00 hours as Medical nebulizer needed for Bran ch solution Wheezing or Shortness of Breath. ipratropium 2022-0 Yes [id number] .5mg Inhale 2.5 Univers 0.02 % 6-27 mL every 6 ity of nebulizer 00:00: (six) [place] solution 00 hours as Medical needed for Branch Wheezing or Shortness of Breath. furosemide 2022-0 Yes [id number] 80mg Take 2 Univers 40 mg 6-27 tablets by ity of tablet 00:00: mouth [place] 00 every Medical morning Branch and evening. benzonatate 2022-0 Yes [id number] 200mg Take 1 Univers 200 mg 6-27 capsule by ity of capsule 00:00: mouth 3 [place] 00 (three) Medical times Branch daily as needed for Cough. ferrous 3-0 Yes [id number] 324mg Take 1 Un briana sulfate 324 6-27 tablet by ity of mg (65 mg 00:00: mouth [place] iron) EC 00 daily with Medic al tablet breakfast. Branch albuterol 2022-0 Yes [id number] 2.5mg Inhale 3 Univers 2.5 mg /3 6-27 mL every 8 ity of mL (0.083 00:00: (eight) [place] %) 00 hours as Medical nebulizer needed for Bran ch solution Wheezing or Shortness of Breath. ipratropium 2023-0 Yes [id number] .5mg Inhale 2.5 Univers 0.02 % 6-27 mL every 6 ity of nebulizer 00:00: (six) [place] solution 00 hours as Medical needed for Branch Wheezing or Shortness of Breath. furosemide 3-0 Yes [id number] 80mg Take 2 Univers 40 mg 6-27 tablets by ity of tablet 00:00: mouth [place] 00 every Medical morning Branch and evening. benzonatate 2023-0 Yes [id number] 200mg Take 1 Univers 200 mg 6-27 capsule by ity of capsule 00:00: mouth 3 [place] 00 (three) Medical times Branch daily as needed for Cough. ferrous 2022-0 Yes [id number] 324mg Take 1 Un briana sulfate 324 6-27 tablet by ity of mg (65 mg 00:00: mouth [place] iron) EC 00 daily with Medic al tablet breakfast. Branch albuterol 2022-0 Yes [id number] 2.5mg Inhale 3 Univers 2.5 mg /3 6-27 mL every 8 ity of mL (0.083 00:00: (eight) [place] %) 00 hours as Medical nebulizer needed for Bran ch solution Wheezing or Shortness of Breath. ipratropium 2022-0 Yes [id number] .5mg Inhale 2.5 Univers 0.02 % 6-27 mL every 6 ity of nebulizer 00:00: (six) [place] solution 00 hours as Medical needed for Branch Wheezing or Shortness of Breath. furosemide 2022-0 Yes [id number] 80mg Take 2 Univers 40 mg 6-27 tablets by ity of tablet 00:00: mouth [place] 00 every Medical morning Branch and evening. benzonatate 2022-0 Yes [id number] 200mg Take 1 Univers 200 mg 6-27 capsule by ity of capsule 00:00: mouth 3 [place] 00 (three) Medical times Branch daily as needed for Cough. ferrous 2022-0 Yes [id number] 324mg Take 1 Un briana sulfate 324 6-27 tablet by ity of mg (65 mg 00:00: mouth [place] iron) EC 00 daily with Medic al tablet breakfast. Branch albuterol 2022-0 Yes [id number] 2.5mg Inhale 3 Univers 2.5 mg /3 6-27 mL every 8 ity of mL (0.083 00:00: (eight) [place] %) 00 hours as Medical nebulizer needed for Bran ch solution Wheezing or Shortness of Breath. ipratropium 2022-0 Yes [id number] .5mg Inhale 2.5 Univers 0.02 % 6-27 mL every 6 ity of nebulizer 00:00: (six) [place] solution 00 hours as Medical needed for Branch Wheezing or Shortness of Breath. furosemide 2022-0 Yes [id number] 80mg Take 2 Univers 40 mg 6-27 tablets by ity of tablet 00:00: mouth [place] 00 every Medical morning Branch and evening. benzonatate 2023-0 Yes [id number] 200mg Take 1 Univers 200 mg 6-27 capsule by ity of capsule 00:00: mouth 3 [place] 00 (three) Medical times Branch daily as needed for Cough. ferrous 2023-0 Yes [id number] 324mg Take 1 Un briana sulfate 324 6-27 tablet by ity of mg (65 mg 00:00: mouth [place] iron) EC 00 daily with Medic al tablet breakfast. Branch albuterol 3-0 Yes [id number] 2.5mg Inhale 3 Univers 2.5 mg /3 6-27 mL every 8 ity of mL (0.083 00:00: (eight) [place] %) 00 hours as Medical nebulizer needed for Bran ch solution Wheezing or Shortness of Breath. ipratropium 3-0 Yes [id number] .5mg Inhale 2.5 Univers 0.02 % 6-27 mL every 6 ity of nebulizer 00:00: (six) [place] solution 00 hours as Medical needed for Branch Wheezing or Shortness of Breath. furosemide 2022-0 Yes [id number] 80mg Take 2 Univers 40 mg 6-27 tablets by ity of tablet 00:00: mouth [place] 00 every Medical morning Branch and evening. benzonatate 3-0 Yes [id number] 200mg Take 1 Univers 200 mg 6-27 capsule by ity of capsule 00:00: mouth 3 [place] 00 (three) Medical times Branch daily as needed for Cough. ferrous 3-0 Yes [id number] 324mg Take 1 Un briana sulfate 324 6-27 tablet by ity of mg (65 mg 00:00: mouth [place] iron) EC 00 daily with Medic al tablet breakfast. Branch albuterol 3-0 Yes [id number] 2.5mg Inhale 3 Univers 2.5 mg /3 6-27 mL every 8 ity of mL (0.083 00:00: (eight) [place] %) 00 hours as Medical nebulizer needed for Bran ch solution Wheezing or Shortness of Breath. ipratropium 2023-0 Yes [id number] .5mg Inhale 2.5 Univers 0.02 % 6-27 mL every 6 ity of nebulizer 00:00: (six) [place] solution 00 hours as Medical needed for Branch Wheezing or Shortness of Breath. furosemide 3-0 Yes [id number] 80mg Take 2 Univers 40 mg 6-27 tablets by ity of tablet 00:00: mouth [place] 00 every Medical morning Branch and evening. benzonatate 2023-0 Yes [id number] 200mg Take 1 Univers 200 mg 6-27 capsule by ity of capsule 00:00: mouth 3 [place] 00 (three) Medical times Branch daily as needed for Cough. ferrous 2022-0 Yes [id number] 324mg Take 1 Un briana sulfate 324 6-27 tablet by ity of mg (65 mg 00:00: mouth [place] iron) EC 00 daily with Medic al tablet breakfast. Branch albuterol 2022-0 Yes [id number] 2.5mg Inhale 3 Univers 2.5 mg /3 6-27 mL every 8 ity of mL (0.083 00:00: (eight) [place] %) 00 hours as Medical nebulizer needed for Bran ch solution Wheezing or Shortness of Breath. ipratropium 2022-0 Yes [id number] .5mg Inhale 2.5 Univers 0.02 % 6-27 mL every 6 ity of nebulizer 00:00: (six) [place] solution 00 hours as Medical needed for Branch Wheezing or Shortness of Breath. furosemide 2022-0 Yes [id number] 80mg Take 2 Univers 40 mg 6-27 tablets by ity of tablet 00:00: mouth [place] 00 every Medical morning Branch and evening. benzonatate 3-0 Yes [id number] 200mg Take 1 Univers 200 mg 6-27 capsule by ity of capsule 00:00: mouth 3 [place] 00 (three) Medical times Branch daily as needed for Cough. ferrous 3-0 Yes [id number] 324mg Take 1 Un briana sulfate 324 6-27 tablet by ity of mg (65 mg 00:00: mouth [place] iron) EC 00 daily with Medic al tablet breakfast. Branch albuterol 2022-0 Yes [id number] 2.5mg Inhale 3 Univers 2.5 mg /3 6-27 mL every 8 ity of mL (0.083 00:00: (eight) [place] %) 00 hours as Medical nebulizer needed for Bran ch solution Wheezing or Shortness of Breath. ipratropium 3-0 Yes [id number] .5mg Inhale 2.5 Univers 0.02 % 6-27 mL every 6 ity of nebulizer 00:00: (six) [place] solution 00 hours as Medical needed for Branch Wheezing or Shortness of Breath. furosemide 2022-0 Yes [id number] 80mg Take 2 Univers 40 mg 6-27 tablets by ity of tablet 00:00: mouth [place] 00 every Medical morning Branch and evening. benzonatate 2022-0 Yes [id number] 200mg Take 1 Univers 200 mg 6-27 capsule by ity of capsule 00:00: mouth 3 [place] 00 (three) Medical times Branch daily as needed for Cough. ferrous 2022-0 Yes [id number] 324mg Take 1 Un briana sulfate 324 6-27 tablet by ity of mg (65 mg 00:00: mouth [place] iron) EC 00 daily with Medic al tablet breakfast. Branch albuterol 2022-0 Yes [id number] 2.5mg Inhale 3 Univers 2.5 mg /3 6-27 mL every 8 ity of mL (0.083 00:00: (eight) [place] %) 00 hours as Medical nebulizer needed for Bran ch solution Wheezing or Shortness of Breath. ipratropium 2022-0 Yes [id number] .5mg Inhale 2.5 Univers 0.02 % 6-27 mL every 6 ity of nebulizer 00:00: (six) [place] solution 00 hours as Medical needed for Branch Wheezing or Shortness of Breath. furosemide 2022-0 Yes [id number] 80mg Take 2 Univers 40 mg 6-27 tablets by ity of tablet 00:00: mouth [place] 00 every Medical morning Branch and evening. benzonatate 2022-0 Yes [id number] 200mg Take 1 Univers 200 mg 6-27 capsule by ity of capsule 00:00: mouth 3 [place] 00 (three) Medical times Branch daily as needed for Cough. ferrous 2022-0 Yes [id number] 324mg Take 1 Un briana sulfate 324 6-27 tablet by ity of mg (65 mg 00:00: mouth [place] iron) EC 00 daily with Medic al tablet breakfast. Branch albuterol 2022-0 Yes [id number] 2.5mg Inhale 3 Univers 2.5 mg /3 6-27 mL every 8 ity of mL (0.083 00:00: (eight) [place] %) 00 hours as Medical nebulizer needed for Bran ch solution Wheezing or Shortness of Breath. furosemide 3-0 Yes [id number] 80mg Take 2 Univers 40 mg 6-27 tablets by ity of tablet 00:00: mouth [place] 00 every Medical morning Branch and evening. benzonatate 2022-0 Yes [id number] 200mg Take 1 Univers 200 mg 6-27 capsule by ity of capsule 00:00: mouth 3 [place] 00 (three) Medical times Branch daily as needed for Cough. ferrous 2022-0 Yes [id number] 324mg Take 1 Un briana sulfate 324 6-27 tablet by ity of mg (65 mg 00:00: mouth [place] iron) EC 00 daily with Medic al tablet breakfast. Branch albuterol 2022-0 Yes [id number] 2.5mg Inhale 3 [facility] 2.5 mg /3 6-27 mL every 8 ity of mL (0.083 00:00: (eight) [place] %) 00 hours as Medical nebulizer needed for Bran ch solution Wheezing or Shortness of Breath. furosemide 2022-0 Yes [id number] 80mg Take 2 [facility] 40 mg 6-27 tablets by ity of tablet 00:00: mouth [place] 00 every Medical morning Branch and evening. benzonatate 2022-0 Yes [id number] 200mg Take 1 [facility] 200 mg 6-27 capsule by ity of capsule 00:00: mouth 3 [place] (three) Medical times Branch daily as needed for Cough. ferrous 2022-0 Yes [id number] 324mg Take 1 Un briana sulfate 324 6-27 tablet by ity of mg (65 mg 00:00: mouth [place] iron) EC 00 daily with Medic al tablet breakfast. Branch albuterol 3-0 Yes [id number] 2.5mg Inhale 3 [facility] 2.5 mg /3 6-27 mL every 8 ity of mL (0.083 00:00: (eight) [place] %) 00 hours as Medical nebulizer needed for Bran ch solution Wheezing or Shortness of Breath. furosemide 2022-0 Yes [id number] 80mg Take 2 [facility] 40 mg 6-27 tablets by ity of tablet 00:00: mouth [place] 00 every Medical morning Branch and evening. benzonatate 2023-0 Yes [id number] 200mg Take 1 [facility] 200 mg 6-27 capsule by ity of capsule 00:00: mouth 3 [place] 00 (three) Medical times Branch daily as needed for Cough. ferrous 2022-0 Yes [id number] 324mg Take 1 Un briana sulfate 324 6-27 tablet by ity of mg (65 mg 00:00: mouth [place] iron) EC 00 daily with Medic al tablet breakfast. Branch albuterol 2022-0 Yes [id number] 2.5mg Inhale 3 [facility] 2.5 mg /3 6-27 mL every 8 ity of mL (0.083 00:00: (eight) [place] %) 00 hours as Medical nebulizer needed for Bran ch solution Wheezing or Shortness of Breath. furosemide 2022-0 Yes [id number] 80mg Take 2 [facility] 40 mg 6-27 tablets by ity of tablet 00:00: mouth [place] 00 every Medical morning Branch and evening. benzonatate 2022-0 Yes [id number] 200mg Take 1 [facility] 200 mg 6-27 capsule by ity of capsule 00:00: mouth 3 [place] 00 (three) Medical times Branch daily as needed for Cough. ferrous 2022-0 Yes [id number] 324mg Take 1 Un briana sulfate 324 6-27 tablet by ity of mg (65 mg 00:00: mouth [place] iron) EC 00 daily with Medic al tablet breakfast. Branch albuterol 2022-0 Yes [id number] 2.5mg Inhale 3 [facility] 2.5 mg /3 6-27 mL every 8 ity of mL (0.083 00:00: (eight) [place] %) 00 hours as Medical nebulizer needed for Bran ch solution Wheezing or Shortness of Breath. furosemide 2022-0 Yes [id number] 80mg Take 2 [facility] 40 mg 6-27 tablets by ity of tablet 00:00: mouth [place] 00 every Medical morning Branch and evening. benzonatate 2022-0 Yes [id number] 200mg Take 1 [facility] 200 mg 6-27 capsule by ity of capsule 00:00: mouth 3 [place] 00 (three) Medical times Branch daily as needed for Cough. ferrous 2022-0 Yes [id number] 324mg Take 1 Un briana sulfate 324 6-27 tablet by ity of mg (65 mg 00:00: mouth [place] iron) EC 00 daily with Medic al tablet breakfast. Branch albuterol 2022-0 Yes [id number] 2.5mg Inhale 3 [facility] 2.5 mg /3 6-27 mL every 8 ity of mL (0.083 00:00: (eight) [place] %) 00 hours as Medical nebulizer needed for Bran ch solution Wheezing or Shortness of Breath. furosemide 2022-0 Yes [id number] 80mg Take 2 [facility] 40 mg 6-27 tablets by ity of tablet 00:00: mouth [place] 00 every Medical morning Branch and evening. benzonatate 3-0 Yes [id number] 200mg Take 1 [facility] 200 mg 6-27 capsule by ity of capsule 00:00: mouth 3 [place] 00 (three) Medical times Branch daily as needed for Cough. ferrous 2022-0 Yes [id number] 324mg Take 1 Un briana sulfate 324 6-27 tablet by ity of mg (65 mg 00:00: mouth [place] iron) EC 00 daily with Medic al tablet breakfast. Branch albuterol 2022-0 Yes [id number] 2.5mg Inhale 3 [facility] 2.5 mg /3 6-27 mL every 8 ity of mL (0.083 00:00: (eight) [place] %) 00 hours as Medical nebulizer needed for Bran ch solution Wheezing or Shortness of Breath. furosemide 2022-0 Yes [id number] 80mg Take 2 [facility] 40 mg 6-27 tablets by ity of tablet 00:00: mouth [place] 00 every Medical morning Branch and evening. benzonatate 2022-0 Yes [id number] 200mg Take 1 [facility] 200 mg 6-27 capsule by ity of capsule 00:00: mouth 3 [place] 00 (three) Medical times Branch daily as needed for Cough. ferrous 3-0 Yes [id number] 324mg Take 1 Un briana sulfate 324 6-27 tablet by ity of mg (65 mg 00:00: mouth [place] iron) EC 00 daily with Medic al tablet breakfast. Branch albuterol 2022-0 Yes [id number] 2.5mg Inhale 3 [facility] 2.5 mg /3 6-27 mL every 8 ity of mL (0.083 00:00: (eight) [place] %) 00 hours as Medical nebulizer needed for Bran ch solution Wheezing or Shortness of Breath. furosemide 2022-0 Yes [id number] 80mg Take 2 [facility] 40 mg 6-27 tablets by ity of tablet 00:00: mouth [place] 00 every Medical morning Branch and evening. benzonatate 3-0 Yes [id number] 200mg Take 1 [facility] 200 mg 6-27 capsule by ity of capsule 00:00: mouth 3 [place] 00 (three) Medical times Branch daily as needed for Cough. ferrous 2022-0 Yes [id number] 324mg Take 1 Un briana sulfate 324 6-27 tablet by ity of mg (65 mg 00:00: mouth [place] iron) EC 00 daily with Medic al tablet breakfast. Branch albuterol 2022-0 Yes [id number] 2.5mg Inhale 3 [facility] 2.5 mg /3 6-27 mL every 8 ity of mL (0.083 00:00: (eight) [place] %) 00 hours as Medical nebulizer needed for Bran ch solution Wheezing or Shortness of Breath. furosemide 2022-0 Yes [id number] 80mg Take 2 [facility] 40 mg 6-27 tablets by ity of tablet 00:00: mouth [place] 00 every Medical morning Branch and evening. benzonatate 2022-0 Yes [id number] 200mg Take 1 [facility] 200 mg 6-27 capsule by ity of capsule 00:00: mouth 3 [place] 00 (three) Medical times Branch daily as needed for Cough. ferrous 2022-0 Yes [id number] 324mg Take 1 Un briana sulfate 324 6-27 tablet by ity of mg (65 mg 00:00: mouth [place] iron) EC 00 daily with Medic al tablet breakfast. Branch albuterol 2022-0 Yes [id number] 2.5mg Inhale 3 [facility] 2.5 mg /3 6-27 mL every 8 ity of mL (0.083 00:00: (eight) [place] %) 00 hours as Medical nebulizer needed for Bran ch solution Wheezing or Shortness of Breath. furosemide 2022-0 Yes [id number] 80mg Take 2 [facility] 40 mg 6-27 tablets by ity of tablet 00:00: mouth [place] 00 every Medical morning Branch and evening. benzonatate 2022-0 Yes [id number] 200mg Take 1 [facility] 200 mg 6-27 capsule by ity of capsule 00:00: mouth 3 [place] 00 (three) Medical times Branch daily as needed for Cough. ferrous 2022-0 Yes [id number] 324mg Take 1 Un briana sulfate 324 6-27 tablet by ity of mg (65 mg 00:00: mouth [place] iron) EC 00 daily with Medic al tablet breakfast. Branch albuterol 2022-0 Yes [id number] 2.5mg Inhale 3 [facility] 2.5 mg /3 6-27 mL every 8 ity of mL (0.083 00:00: (eight) [place] %) 00 hours as Medical nebulizer needed for Bran ch solution Wheezing or Shortness of Breath. furosemide 2022-0 Yes [id number] 80mg Take 2 [facility] 40 mg 6-27 tablets by ity of tablet 00:00: mouth [place] 00 every Medical morning Branch and evening. benzonatate 2022-0 Yes [id number] 200mg Take 1 [facility] 200 mg 6-27 capsule by ity of capsule 00:00: mouth 3 [place] 00 (three) Medical times Branch daily as needed for Cough. ferrous 2022-0 Yes [id number] 324mg Take 1 Un briana sulfate 324 6-27 tablet by ity of mg (65 mg 00:00: mouth [place] iron) EC 00 daily with Medic al tablet breakfast. Branch albuterol 2022-0 Yes [id number] 2.5mg Inhale 3 [facility] 2.5 mg /3 6-27 mL every 8 ity of mL (0.083 00:00: (eight) [place] %) 00 hours as Medical nebulizer needed for Bran ch solution Wheezing or Shortness of Breath. furosemide 2022-0 Yes [id number] 80mg Take 2 [facility] 40 mg 6-27 tablets by ity of tablet 00:00: mouth [place] 00 every Medical morning Branch and evening. benzonatate 2022-0 Yes [id number] 200mg Take 1 [facility] 200 mg 6-27 capsule by ity of capsule 00:00: mouth 3 [place] 00 (three) Medical times Branch daily as needed for Cough. ferrous 2022-0 Yes [id number] 324mg Take 1 Un briana sulfate 324 6-27 tablet by ity of mg (65 mg 00:00: mouth [place] iron) EC 00 daily with Medic al tablet breakfast. Branch albuterol 2022-0 Yes [id number] 2.5mg Inhale 3 [facility] 2.5 mg /3 6-27 mL every 8 ity of mL (0.083 00:00: (eight) [place] %) 00 hours as Medical nebulizer needed for Bran ch solution Wheezing or Shortness of Breath. furosemide 3-0 Yes [id number] 80mg Take 2 [facility] 40 mg 6-27 tablets by ity of tablet 00:00: mouth [place] 00 every Medical morning Branch and evening. benzonatate 2023-0 Yes [id number] 200mg Take 1 [facility] 200 mg 6-27 capsule by ity of capsule 00:00: mouth 3 [place] 00 (three) Medical times Branch daily as needed for Cough. ferrous Yes [id number] 324mg Take 1 Un briana sulfate 324 6-27 tablet by ity of mg (65 mg 00:00: mouth [place] iron) EC 00 daily with Medic al tablet breakfast. Branch carvediloL 2022- No 3.125mg Take 1 [facility] nivers 3.125 mg 6-27 - tablet by ity o f tablet 00:00: 04:59 mouth 2 [place] 00 :00 (two) Medical times Branch daily with meals for 90 days. carvediloL 2022- No 3.125mg Take 1 [facility] nivers 3.125 mg 6-27 - tablet by ity o f tablet 00:00: 04:59 mouth 2 [place] 00 :00 (two) Medical times Branch daily with meals for 90 days. carvediloL 2022- No 3.125mg Take 1 U nivers 3.125 mg 6-27 - tablet by ity o f tablet 00:00: 04:59 mouth 2 [place] 00 :00 (two) Medical times Branch daily with meals for 90 days. carvediloL 2022- No 3.125mg Take 1 U nivers 3.125 mg 6-27 - tablet by ity o f tablet 00:00: 04:59 mouth 2 [place] 00 :00 (two) Medical times Branch daily with meals for 90 days. carvediloL 2022- No 3.125mg Take 1 U nivers 3.125 mg 6-27 - tablet by ity o f tablet 00:00: 04:59 mouth 2 [place] 00 :00 (two) Medical times Branch daily with meals for 90 days. carvediloL 2022- No 3.125mg Take 1 U nivers 3.125 mg 6-27 - tablet by ity o f tablet 00:00: 04:59 mouth 2 [place] 00 :00 (two) Medical times Branch daily with meals for 90 days. carvediloL 2022- No 3.125mg Take 1 U nivers 3.125 mg 6-27 -26 tablet by ity o f tablet 00:00: 04:59 mouth 2 [place] 00 :00 (two) Medical times Branch daily with meals for 90 days. carvediloL 2022-0 2023- No 3.125mg Take 1 U nivers 3.125 mg 6-27 -26 tablet by ity o f tablet 00:00: 04:59 mouth 2 [place] 00 :00 (two) Medical times Branch daily with meals for 90 days. carvediloL 2022-0 2023- No 3.125mg Take 1 U nivers 3.125 mg 6-27 - tablet by ity o f tablet 00:00: 04:59 mouth 2 [place] 00 :00 (two) Medical times Branch daily with meals for 90 days. carvediloL 2022-0 2023- No 3.125mg Take 1 U nivers 3.125 mg 6-27 - tablet by ity o f tablet 00:00: 04:59 mouth 2 [place] 00 :00 (two) Medical times Branch daily with meals for 90 days. carvediloL 2022-0 2023- No 3.125mg Take 1 U nivers 3.125 mg 6-27 - tablet by ity o f tablet 00:00: 04:59 mouth 2 [place] 00 :00 (two) Medical times Branch daily with meals for 90 days. carvediloL 2022-0 2023- No 3.125mg Take 1 U nivers 3.125 mg 6-27 - tablet by ity o f tablet 00:00: 04:59 mouth 2 [place] 00 :00 (two) Medical times Branch daily with meals for 90 days. carvediloL 2022-0 2023- No 3.125mg Take 1 U nivers 3.125 mg 6-27 - tablet by ity o f tablet 00:00: 04:59 mouth 2 [place] 00 :00 (two) Medical times Branch daily with meals for 90 days. carvediloL 2023-0 2023- No 3.125mg Take 1 U nivers 3.125 mg 6-27 -26 tablet by ity o f tablet 00:00: 04:59 mouth 2 [place] 00 :00 (two) Medical times Branch daily with meals for 90 days. carvediloL 2023-0 2023- No 3.125mg Take 1 U nivers 3.125 mg 08-09 09- tablet by ity o f tablet 00:00: 04:59 mouth 2 [place] 00 :00 (two) Medical times Branch daily with meals for 90 days. ipratropium 2023-0 2023- No [id number] .5mg Inhale 2.5 [facility] 0.02 % 6-27 08-17 mL every 6 ity of nebulizer 00:00: 00:00 (six) [place] solution 00 :00 hours as Medical needed for Branch Wheezing or Shortness of Breath. ipratropium 2023-0 2023- No [id number] .5mg Inhale 2.5 [facility] 0.02 % 6-27 08-17 mL every 6 ity of nebulizer 00:00: 00:00 (six) [place] solution 00 :00 hours as Medical needed for Branch Wheezing or Shortness of Breath. ipratropium 2023-0 2023- No [id number] .5mg Inhale 2.5 [facility] 0.02 % 6-27 08-17 mL every 6 ity of nebulizer 00:00: 00:00 (six) [place] solution 00 :00 hours as Medical needed for Branch Wheezing or Shortness of Breath. furosemide 2023-0 Yes [id number] 80mg Take 2 [facility] 40 mg 5-16 tablets by ity of tablet 00:00: mouth [place] 00 every Medical morning Branch and evening. furosemide 2023-0 Yes [id number] 80mg Take 2 [facility] 40 mg 5-16 tablets by ity of tablet 00:00: mouth [place] 00 every Medical morning Branch and evening. furosemide 2023-0 Yes [id number] 80mg Take 2 [facility] 40 mg 5-16 tablets by ity of tablet 00:00: mouth [place] 00 every Medical morning Branch and evening. furosemide 2023-0 Yes [id number] 80mg Take 2 [facility] 40 mg 5-16 tablets by ity of tablet 00:00: mouth [place] 00 every Medical morning Branch and evening. furosemide 2023-0 Yes [id number] 80mg Take 2 [facility] 40 mg 5-16 tablets by ity of tablet 00:00: mouth [place] 00 every Medical morning Branch and evening. furosemide 2023-0 Yes [id number] 80mg Take 2 [facility] 40 mg 5-16 tablets by ity of tablet 00:00: mouth [place] 00 every Medical morning Branch and evening. furosemide 2023-0 Yes [id number] 80mg Take 2 [facility] 40 mg 5-16 tablets by ity of tablet 00:00: mouth [place] 00 every Medical morning Branch and evening. furosemide 2022-0 Yes [id number] 80mg Take 2 [facility] 40 mg 5-16 tablets by ity of tablet 00:00: mouth [place] 00 every Medical morning Branch and evening. furosemide 2022-0 Yes [id number] 80mg Take 2 [facility] 40 mg 5-16 tablets by ity of tablet 00:00: mouth [place] 00 every Medical morning Branch and evening. furosemide 2022-0 Yes [id number] 80mg Take 2 [facility] 40 mg 5-16 tablets by ity of tablet 00:00: mouth [place] 00 every Medical morning Branch and evening. furosemide 2022-0 Yes [id number] 80mg Take 2 [facility] 40 mg 5-16 tablets by ity of tablet 00:00: mouth [place] 00 every Medical morning Branch and evening. furosemide 2022-0 Yes [id number] 80mg Take 2 [facility] 40 mg 5-16 tablets by ity of tablet 00:00: mouth [place] 00 every Medical morning Branch and evening. furosemide 2022-0 Yes [id number] 80mg Take 2 [facility] 40 mg 5-16 tablets by ity of tablet 00:00: mouth [place] 00 every Medical morning Branch and evening. furosemide 2022-0 Yes [id number] 80mg Take 2 [facility] 40 mg 5-16 tablets by ity of tablet 00:00: mouth [place] 00 every Medical morning Branch and evening. furosemide 2022-0 2022- No [id number] 80mg Take 2 [facility] 40 mg 5-16 06-27 tablets by ity of tablet 00:00: 00:00 mouth [place] 00 :00 every Medical morning Branch and evening. furosemide 2022-0 2022- No [id number] 80mg Take 2 [facility] 40 mg 5-16 06-27 tablets by ity of tablet 00:00: 00:00 mouth [place] 00 :00 every Medical morning Branch and evening. furosemide 2022-0 2022- No [id number] 80mg Take 2 [facility] 40 mg 5-16 06-27 tablets by ity of tablet 00:00: 00:00 mouth [place] 00 :00 every Medical morning Branch and evening. regadenoson 2022-2022- No [id number] .4mg 0.4 mg, IV [facility] (LEXISCAN) 06-23 Push, ity of injection 17:00: 15:51 ONCE, 1 [place] 0.4 [place] 00 :00 dose, On Medical [facility] Branch 06/23/22 at 1200, Routine
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 06/23/22 at 1030, Routine tc 2022- No [id number] 16.5mCi 16.5 Unive rs 99m-tetrofo 06-23 millicurie i ty of [facility] 13:45: 13:45 , [place] ([facility]) 00 :00 Intravenou Medi angelica injection s, ONCE, 1 [facility] ch 16.5 dose, On [facility] 06/23/22 at 0845, Routine furosemide 2022-0 Yes [id number] 80mg Take 2 [facility] 40 mg 5-09 tablets by ity of tablet 00:00: mouth [place] 00 every Medical morning Branch and evening. furosemide 2022-0 Yes [id number] 80mg Take 2 [facility] 40 mg 5-09 tablets by ity of tablet 00:00: mouth [place] 00 every Medical morning Branch and evening. furosemide 202-0 Yes [id number] 80mg Take 2 [facility] 40 mg 5-09 tablets by ity of tablet 00:00: mouth [place] 00 every Medical morning Branch and evening. furosemide 2023-0 Yes [id number] 80mg Take 2 [facility] 40 mg 5-09 tablets by ity of tablet 00:00: mouth [place] 00 every Medical morning Branch and evening. furosemide 2023-0 Yes [id number] 80mg Take 2 [facility] 40 mg 5-09 tablets by ity of tablet 00:00: mouth [place] 00 every Medical morning Branch and evening. furosemide 2023-0 Yes [id number] 80mg Take 2 [facility] 40 mg 5-09 tablets by ity of tablet 00:00: mouth [place] 00 every Medical morning Branch and evening. furosemide 202-0 2022- No [id number] 80mg Take 2 [facility] 40 mg 5-09 05-16 tablets by ity of tablet 00:00: 00:00 mouth [place] 00 :00 every Medical morning Branch and evening. furosemide 2022-0 2023- No [id number] 80mg Take 2 [facility] 40 mg 5-09 05-16 tablets by ity of tablet 00:00: 00:00 mouth [place] 00 :00 every Medical morning Branch and evening. atorvastati 2022-0 Yes [id number] 20mg Take 1 [facility] n 20 mg 4-28 tablet by ity of tablet 00:00: mouth at [place] 00 bedtime. Medical Branch furosemide 2022-0 Yes [id number] 40mg Take 1 [facility] 40 mg 4-28 tablet by ity of tablet 00:00: mouth [place] 00 every Medical morning Branch and evening. losartan 50 2022-0 Yes [id number] 25mg Take 0.5 [facility] mg tablet 4-28 tablets by ity of 00:00: mouth [place] 00 every day Medical at 1200 Branch (noon). ipratropium 2022-0 Yes [id number] .5mg Inhale 2.5 [facility] 0.02 % 4-28 mL every 6 ity of nebulizer 00:00: (six) [place] solution 00 hours as Medical needed for Branch Wheezing or Shortness of Breath. albuterol 2022-0 Yes [id number] 2.5mg Inhale 3 [facility] 2.5 mg /3 4-28 mL every 8 ity of mL (0.083 00:00: (eight) [place] %) 00 hours as Medical nebulizer needed for Bran ch solution Wheezing or Shortness of Breath. atorvastati 2022-0 Yes [id number] 20mg Take 1 [facility] n 20 mg 4-28 tablet by ity of tablet 00:00: mouth at [place] 00 bedtime. Medical Branch furosemide 2022-0 Yes [id number] 40mg Take 1 [facility] 40 mg 4-28 tablet by ity of tablet 00:00: mouth [place] 00 every Medical morning Branch and evening. losartan 50 2022-0 Yes [id number] 25mg Take 0.5 [facility] mg tablet 4-28 tablets by ity of 00:00: mouth [place] 00 every day Medical at 1200 Branch (noon). ipratropium 2022-0 Yes [id number] .5mg Inhale 2.5 [facility] 0.02 % 4-28 mL every 6 ity of nebulizer 00:00: (six) [place] solution 00 hours as Medical needed for Branch Wheezing or Shortness of Breath. albuterol 3-0 Yes [id number] 2.5mg Inhale 3 [facility] 2.5 mg /3 4-28 mL every 8 ity of mL (0.083 00:00: (eight) [place] %) 00 hours as Medical nebulizer needed for Bran ch solution Wheezing or Shortness of Breath. atorvastati 2022-0 Yes [id number] 20mg Take 1 [facility] n 20 mg 4-28 tablet by ity of tablet 00:00: mouth at [place] 00 bedtime. Medical Branch furosemide 2022-0 Yes [id number] 40mg Take 1 [facility] 40 mg 4-28 tablet by ity of tablet 00:00: mouth [place] 00 every Medical morning Branch and evening. losartan 50 2022-0 Yes [id number] 25mg Take 0.5 [facility] mg tablet 4-28 tablets by ity of 00:00: mouth [place] 00 every day Medical at 1200 Branch (noon). ipratropium 2022-0 Yes [id number] .5mg Inhale 2.5 [facility] 0.02 % 4-28 mL every 6 ity of nebulizer 00:00: (six) [place] solution 00 hours as Medical needed for Branch Wheezing or Shortness of Breath. albuterol 2022-0 Yes [id number] 2.5mg Inhale 3 [facility] 2.5 mg /3 4-28 mL every 8 ity of mL (0.083 00:00: (eight) [place] %) 00 hours as Medical nebulizer needed for Bran ch solution Wheezing or Shortness of Breath. atorvastati 2022-0 Yes [id number] 20mg Take 1 [facility] n 20 mg 4-28 tablet by ity of tablet 00:00: mouth at [place] 00 bedtime. Medical Branch furosemide 3-0 Yes [id number] 40mg Take 1 [facility] 40 mg 4-28 tablet by ity of tablet 00:00: mouth [place] 00 every Medical morning Branch and evening. losartan 50 3-0 Yes [id number] 25mg Take 0.5 [facility] mg tablet 4-28 tablets by ity of 00:00: mouth [place] 00 every day Medical at 1200 Branch (noon). ipratropium 3-0 Yes [id number] .5mg Inhale 2.5 [facility] 0.02 % 4-28 mL every 6 ity of nebulizer 00:00: (six) [place] solution 00 hours as Medical needed for Branch Wheezing or Shortness of Breath. albuterol 2022-0 Yes [id number] 2.5mg Inhale 3 [facility] 2.5 mg /3 4-28 mL every 8 ity of mL (0.083 00:00: (eight) [place] %) 00 hours as Medical nebulizer needed for Bran ch solution Wheezing or Shortness of Breath. atorvastati 2022-0 Yes [id number] 20mg Take 1 [facility] n 20 mg 4-28 tablet by ity of tablet 00:00: mouth at [place] 00 bedtime. Medical Branch furosemide 2022-0 Yes [id number] 40mg Take 1 [facility] 40 mg 4-28 tablet by ity of tablet 00:00: mouth [place] 00 every Medical morning Branch and evening. losartan 50 2022-0 Yes [id number] 25mg Take 0.5 [facility] mg tablet 4-28 tablets by ity of 00:00: mouth [place] 00 every day Medical at 1200 Branch (noon). ipratropium 2022-0 Yes [id number] .5mg Inhale 2.5 [facility] 0.02 % 4-28 mL every 6 ity of nebulizer 00:00: (six) [place] solution 00 hours as Medical needed for Branch Wheezing or Shortness of Breath. albuterol 2022-0 Yes [id number] 2.5mg Inhale 3 [facility] 2.5 mg /3 4-28 mL every 8 ity of mL (0.083 00:00: (eight) [place] %) 00 hours as Medical nebulizer needed for Bran ch solution Wheezing or Shortness of Breath. atorvastati 2022-0 Yes [id number] 20mg Take 1 [facility] n 20 mg 4-28 tablet by ity of tablet 00:00: mouth at [place] 00 bedtime. Medical Branch furosemide 2022-0 Yes [id number] 40mg Take 1 [facility] 40 mg 4-28 tablet by ity of tablet 00:00: mouth [place] 00 every Medical morning Branch and evening. losartan 50 2022-0 Yes [id number] 25mg Take 0.5 [facility] mg tablet 4-28 tablets by ity of 00:00: mouth [place] 00 every day Medical at 1200 Branch (noon). ipratropium 2022-0 Yes [id number] .5mg Inhale 2.5 [facility] 0.02 % 4-28 mL every 6 ity of nebulizer 00:00: (six) [place] solution 00 hours as Medical needed for Branch Wheezing or Shortness of Breath. albuterol 3-0 Yes [id number] 2.5mg Inhale 3 [facility] 2.5 mg /3 4-28 mL every 8 ity of mL (0.083 00:00: (eight) [place] %) 00 hours as Medical nebulizer needed for Bran ch solution Wheezing or Shortness of Breath. atorvastati 2022-0 Yes [id number] 20mg Take 1 [facility] n 20 mg 4-28 tablet by ity of tablet 00:00: mouth at [place] 00 bedtime. Medical Branch furosemide 2022-0 Yes [id number] 40mg Take 1 [facility] 40 mg 4-28 tablet by ity of tablet 00:00: mouth [place] 00 every Medical morning Branch and evening. losartan 50 2022-0 Yes [id number] 25mg Take 0.5 [facility] mg tablet 4-28 tablets by ity of 00:00: mouth [place] 00 every day Medical at 1200 Branch (noon). ipratropium 2022-0 Yes [id number] .5mg Inhale 2.5 [facility] 0.02 % 4-28 mL every 6 ity of nebulizer 00:00: (six) [place] solution 00 hours as Medical needed for Branch Wheezing or Shortness of Breath. albuterol 2022-0 Yes [id number] 2.5mg Inhale 3 [facility] 2.5 mg /3 4-28 mL every 8 ity of mL (0.083 00:00: (eight) [place] %) 00 hours as Medical nebulizer needed for Bran ch solution Wheezing or Shortness of Breath. atorvastati 2022-0 Yes [id number] 20mg Take 1 [facility] n 20 mg 4-28 tablet by ity of tablet 00:00: mouth at [place] 00 bedtime. Medical Branch furosemide 3-0 Yes [id number] 40mg Take 1 [facility] 40 mg 4-28 tablet by ity of tablet 00:00: mouth [place] 00 every Medical morning Branch and evening. losartan 50 3-0 Yes [id number] 25mg Take 0.5 [facility] mg tablet 4-28 tablets by ity of 00:00: mouth [place] 00 every day Medical at 1200 Branch (noon). ipratropium 3-0 Yes [id number] .5mg Inhale 2.5 [facility] 0.02 % 4-28 mL every 6 ity of nebulizer 00:00: (six) [place] solution 00 hours as Medical needed for Branch Wheezing or Shortness of Breath. albuterol 2023-0 Yes [id number] 2.5mg Inhale 3 [facility] 2.5 mg /3 4-28 mL every 8 ity of mL (0.083 00:00: (eight) [place] %) 00 hours as Medical nebulizer needed for Bran ch solution Wheezing or Shortness of Breath. atorvastati 2022-0 Yes [id number] 20mg Take 1 [facility] n 20 mg 4-28 tablet by ity of tablet 00:00: mouth at [place] 00 bedtime. Medical Branch furosemide 2022-0 Yes [id number] 40mg Take 1 [facility] 40 mg 4-28 tablet by ity of tablet 00:00: mouth [place] 00 every Medical morning Branch and evening. losartan 50 2022-0 Yes [id number] 25mg Take 0.5 [facility] mg tablet 4-28 tablets by [facility] 00:00: mouth [place] 00 every day Medical at [address] (noon). ipratropium 3-0 Yes [id number] .5mg Inhale 2.5 [facility] 0.02 % 4-28 mL every 6 [facility] of nebulizer 00:00: (six) [place] solution 00 hours as Medical needed for Branch Wheezing or Shortness of Breath. albuterol 2022-0 Yes [id number] 2.5mg Inhale 3 [facility] 2.5 mg /3 4-28 mL every 8 [facility] of mL (0.083 00:00: (eight) [place] %) 00 hours as Medical nebulizer needed for Bran ch solution Wheezing or Shortness of Breath. atorvastati 2022-0 Yes [id number] 20mg Take 1 [facility] n 20 mg 4-28 tablet by [facility] of tablet 00:00: mouth at [place] 00 bedtime. Medical Branch furosemide 2022-0 Yes [id number] 40mg Take 1 [facility] 40 mg 4-28 tablet by [facility] of tablet 00:00: mouth [place] 00 every Medical morning Branch and evening. losartan 50 3-0 Yes [id number] 25mg Take 0.5 [facility] mg tablet 4-28 tablets by [facility] of 00:00: mouth [place] 00 every day Medical at [address] (noon). ipratropium 2023-0 Yes [id number] .5mg Inhale 2.5 [facility] 0.02 % 4-28 mL every 6 [facility] of nebulizer 00:00: (six) [place] solution 00 hours as Medical needed for Branch Wheezing or Shortness of Breath. albuterol 2023-0 Yes [id number] 2.5mg Inhale 3 [facility] 2.5 mg /3 4-28 mL every 8 [facility] mL (0.083 00:00: (eight) [place] %) 00 hours as Medical nebulizer needed for Bran ch solution Wheezing or Shortness of Breath. atorvastati 2022-0 Yes [id number] 20mg Take 1 [facility] n 20 mg 4-28 tablet by [facility] of tablet 00:00: mouth at [place] 00 bedtime. Medical Branch furosemide 2022-0 Yes [id number] 40mg Take 1 [facility] 40 mg 4-28 tablet by [facility] of tablet 00:00: mouth [place] 00 every Medical morning Branch and evening. losartan 50 2022-0 Yes [id number] 25mg Take 0.5 [facility] mg tablet 4-28 tablets by [facility] of 00:00: mouth [place] 00 every day Medical at [address] (noon). ipratropium 3-0 Yes [id number] .5mg Inhale 2.5 [facility] 0.02 % 4-28 mL every 6 [facility] of nebulizer 00:00: (six) [place] solution 00 hours as Medical needed for Branch Wheezing or Shortness of Breath. albuterol 3-0 Yes [id number] 2.5mg Inhale 3 [facility] 2.5 mg /3 4-28 mL every 8 [facility] mL (0.083 00:00: (eight) [place] %) 00 hours as Medical nebulizer needed for Bran ch solution Wheezing or Shortness of Breath. atorvastati 2022-0 Yes [id number] 20mg Take 1 [facility] n 20 mg 4-28 tablet by [facility] of tablet 00:00: mouth at [place] 00 bedtime. Medical Branch furosemide 2022-0 Yes [id number] 40mg Take 1 [facility] 40 mg 4-28 tablet by [facility] of tablet 00:00: mouth [place] 00 every Medical morning Branch and evening. losartan 50 2022-0 Yes [id number] 25mg Take 0.5 [facility] mg tablet 4-28 tablets by [facility] of 00:00: mouth [place] 00 every day Medical at [address] (noon). ipratropium 2023-0 Yes [id number] .5mg Inhale 2.5 [facility] 0.02 % 4-28 mL every 6 [facility] of nebulizer 00:00: (six) [place] solution 00 hours as Medical needed for Branch Wheezing or Shortness of Breath. albuterol 2023-0 Yes [id number] 2.5mg Inhale 3 [facility] 2.5 mg /3 4-28 mL every 8 [facility] mL (0.083 00:00: (eight) [place] %) 00 hours as Medical nebulizer needed for Bran ch solution Wheezing or Shortness of Breath. atorvastati 2023-0 Yes [id number] 20mg Take 1 [facility] n 20 mg 4-28 tablet by [facility] of tablet 00:00: mouth at [place] 00 bedtime. Medical Branch losartan 50 2022-0 Yes [id number] 25mg Take 0.5 [facility] mg tablet 4-28 tablets by [facility] of 00:00: mouth [place] 00 every day Medical at [address] (noon). ipratropium 2023-0 Yes [id number] .5mg Inhale 2.5 [facility] 0.02 % 4-28 mL every 6 [facility] of nebulizer 00:00: (six) [place] solution 00 hours as Medical needed for Branch Wheezing or Shortness of Breath. albuterol 2023-0 Yes [id number] 2.5mg Inhale 3 [facility] 2.5 mg /3 4-28 mL every 8 [facility] of mL (0.083 00:00: (eight) [place] %) 00 hours as Medical nebulizer needed for Bran ch solution Wheezing or Shortness of Breath. atorvastati 3-0 Yes [id number] 20mg Take 1 [facility] n 20 mg 4-28 tablet by [facility] of tablet 00:00: mouth at [place] 00 bedtime. Medical Branch losartan 50 3-0 Yes [id number] 25mg Take 0.5 [facility] mg tablet 4-28 tablets by [facility] of 00:00: mouth [place] 00 every day Medical at [address] (noon). ipratropium 2023-0 Yes [id number] .5mg Inhale 2.5 [facility] 0.02 % 4-28 mL every 6 [facility] of nebulizer 00:00: (six) [place] solution 00 hours as Medical needed for Branch Wheezing or Shortness of Breath. albuterol 2022-0 Yes [id number] 2.5mg Inhale 3 [facility] 2.5 mg /3 4-28 mL every 8 [facility] of mL (0.083 00:00: (eight) [place] %) 00 hours as Medical nebulizer needed for Bran ch solution Wheezing or Shortness of Breath. atorvastati 2022-0 Yes [id number] 20mg Take 1 [facility] n 20 mg 4-28 tablet by [facility] of tablet 00:00: mouth at [place] 00 bedtime. Medical Branch losartan 50 2022-0 Yes [id number] 25mg Take 0.5 [facility] mg tablet 4-28 tablets by [facility] of 00:00: mouth [place] 00 every day Medical at [address] (noon). ipratropium 3-0 Yes [id number] .5mg Inhale 2.5 [facility] 0.02 % 4-28 mL every 6 [facility] of nebulizer 00:00: (six) [place] solution 00 hours as Medical needed for Branch Wheezing or Shortness of Breath. albuterol 2022-0 Yes [id number] 2.5mg Inhale 3 [facility] 2.5 mg /3 4-28 mL every 8 [facility] of mL (0.083 00:00: (eight) [place] %) 00 hours as Medical nebulizer needed for Bran ch solution Wheezing or Shortness of Breath. atorvastati 2022-0 Yes [id number] 20mg Take 1 [facility] n 20 mg 4-28 tablet by [facility] of tablet 00:00: mouth at [place] 00 bedtime. Medical Branch losartan 50 2022-0 Yes [id number] 25mg Take 0.5 [facility] mg tablet 4-28 tablets by [facility] of 00:00: mouth [place] 00 every day Medical at [address] (noon). ipratropium 3-0 Yes [id number] .5mg Inhale 2.5 [facility] 0.02 % 4-28 mL every 6 [facility] of nebulizer 00:00: (six) [place] solution 00 hours as Medical needed for Branch Wheezing or Shortness of Breath. albuterol 2022-0 Yes [id number] 2.5mg Inhale 3 [facility] 2.5 mg /3 4-28 mL every 8 [facility] of mL (0.083 00:00: (eight) [place] %) 00 hours as Medical nebulizer needed for Bran ch solution Wheezing or Shortness of Breath. atorvastati 2022-0 Yes [id number] 20mg Take 1 [facility] n 20 mg 4-28 tablet by [facility] of tablet 00:00: mouth at [place] 00 bedtime. Medical Branch losartan 50 2022-0 Yes [id number] 25mg Take 0.5 [facility] mg tablet 4-28 tablets by [facility] of 00:00: mouth [place] 00 every day Medical at [address] (noon). ipratropium 3-0 Yes [id number] .5mg Inhale 2.5 [facility] 0.02 % 4-28 mL every 6 [facility] of nebulizer 00:00: (six) [place] solution 00 hours as Medical needed for Branch Wheezing or Shortness of Breath. albuterol 2022-0 Yes [id number] 2.5mg Inhale 3 [facility] 2.5 mg /3 4-28 mL every 8 [facility] of mL (0.083 00:00: (eight) [place] %) 00 hours as Medical nebulizer needed for Bran ch solution Wheezing or Shortness of Breath. atorvastati 2022-0 Yes [id number] 20mg Take 1 [facility] n 20 mg 4-28 tablet by [facility] of tablet 00:00: mouth at [place] 00 bedtime. Medical Branch losartan 50 2022-0 Yes [id number] 25mg Take 0.5 [facility] mg tablet 4-28 tablets by [facility] of 00:00: mouth [place] 00 every day Medical at [address] (noon). ipratropium 3-0 Yes [id number] .5mg Inhale 2.5 [facility] 0.02 % 4-28 mL every 6 [facility] of nebulizer 00:00: (six) [place] solution 00 hours as Medical needed for Branch Wheezing or Shortness of Breath. albuterol 3-0 Yes [id number] 2.5mg Inhale 3 [facility] 2.5 mg /3 4-28 mL every 8 [facility] of mL (0.083 00:00: (eight) [place] %) 00 hours as Medical nebulizer needed for Bran ch solution Wheezing or Shortness of Breath. atorvastati 2022-0 Yes [id number] 20mg Take 1 [facility] n 20 mg 4-28 tablet by [facility] of tablet 00:00: mouth at [place] 00 bedtime. Medical Branch losartan 50 2022-0 Yes [id number] 25mg Take 0.5 [facility] mg tablet 4-28 tablets by [facility] of 00:00: mouth [place] 00 every day Medical at [address] (noon). ipratropium 2023-0 Yes [id number] .5mg Inhale 2.5 [facility] 0.02 % 4-28 mL every 6 [facility] of nebulizer 00:00: (six) [place] solution 00 hours as Medical needed for Branch Wheezing or Shortness of Breath. albuterol 2023-0 Yes [id number] 2.5mg Inhale 3 [facility] 2.5 mg /3 4-28 mL every 8 [facility] mL (0.083 00:00: (eight) [place] %) 00 hours as Medical nebulizer needed for Bran ch solution Wheezing or Shortness of Breath. atorvastati 2023-0 Yes [id number] 20mg Take 1 [facility] n 20 mg 4-28 tablet by [facility] of tablet 00:00: mouth at [place] 00 bedtime. Medical Branch losartan 50 2022-0 Yes [id number] 25mg Take 0.5 [facility] mg tablet 4-28 tablets by [facility] of 00:00: mouth [place] 00 every day Medical at [address] (noon). ipratropium 2023-0 Yes [id number] .5mg Inhale 2.5 [facility] 0.02 % 4-28 mL every 6 [facility] of nebulizer 00:00: (six) [place] solution 00 hours as Medical needed for Branch Wheezing or Shortness of Breath. albuterol 2023-0 Yes [id number] 2.5mg Inhale 3 [facility] 2.5 mg /3 4-28 mL every 8 [facility] of mL (0.083 00:00: (eight) [place] %) 00 hours as Medical nebulizer needed for Bran ch solution Wheezing or Shortness of Breath. atorvastati 2023-0 Yes [id number] 20mg Take 1 [facility] n 20 mg 4-28 tablet by [facility] of tablet 00:00: mouth at [place] 00 bedtime. Medical Branch losartan 50 3-0 Yes [id number] 25mg Take 0.5 [facility] mg tablet 4-28 tablets by [facility] of 00:00: mouth [place] 00 every day Medical at [address] (noon). ipratropium 2023-0 Yes [id number] .5mg Inhale 2.5 [facility] 0.02 % 4-28 mL every 6 [facility] of nebulizer 00:00: (six) [place] solution 00 hours as Medical needed for Branch Wheezing or Shortness of Breath. albuterol 3-0 Yes [id number] 2.5mg Inhale 3 [facility] 2.5 mg /3 4-28 mL every 8 [facility] of mL (0.083 00:00: (eight) [place] %) 00 hours as Medical nebulizer needed for Bran ch solution Wheezing or Shortness of Breath. atorvastati 2022-0 Yes [id number] 20mg Take 1 [facility] n 20 mg 4-28 tablet by [facility] of tablet 00:00: mouth at [place] 00 bedtime. Medical Branch losartan 50 2022-0 Yes [id number] 25mg Take 0.5 [facility] mg tablet 4-28 tablets by [facility] of 00:00: mouth [place] 00 every day Medical at [address] (noon). ipratropium 3-0 Yes [id number] .5mg Inhale 2.5 [facility] 0.02 % 4-28 mL every 6 [facility] of nebulizer 00:00: (six) [place] solution 00 hours as Medical needed for Branch Wheezing or Shortness of Breath. albuterol 2022-0 Yes [id number] 2.5mg Inhale 3 [facility] 2.5 mg /3 4-28 mL every 8 [facility] of mL (0.083 00:00: (eight) [place] %) 00 hours as Medical nebulizer needed for Bran ch solution Wheezing or Shortness of Breath. atorvastati 2022-0 Yes [id number] 20mg Take 1 [facility] n 20 mg 4-28 tablet by [facility] of tablet 00:00: mouth at [place] 00 bedtime. Medical Branch losartan 50 2022-0 Yes [id number] 25mg Take 0.5 [facility] mg tablet 4-28 tablets by [facility] of 00:00: mouth [place] 00 every day Medical at [address] (noon). ipratropium 2023-0 Yes [id number] .5mg Inhale 2.5 [facility] 0.02 % 4-28 mL every 6 [facility] of nebulizer 00:00: (six) [place] solution 00 hours as Medical needed for Branch Wheezing or Shortness of Breath. albuterol 2023-0 Yes [id number] 2.5mg Inhale 3 [facility] 2.5 mg /3 4-28 mL every 8 [facility] of mL (0.083 00:00: (eight) [place] %) 00 hours as Medical nebulizer needed for Bran ch solution Wheezing or Shortness of Breath. atorvastati 3-0 Yes [id number] 20mg Take 1 [facility] n 20 mg 4-28 tablet by [facility] of tablet 00:00: mouth at [place] 00 bedtime. Medical Branch losartan 50 2022-0 Yes [id number] 25mg Take 0.5 [facility] mg tablet 4-28 tablets by [facility] of 00:00: mouth [place] 00 every day Medical at [address] (noon). ipratropium 2023-0 Yes [id number] .5mg Inhale 2.5 [facility] 0.02 % 4-28 mL every 6 [facility] of nebulizer 00:00: (six) [place] solution 00 hours as Medical needed for Branch Wheezing or Shortness of Breath. albuterol 2023-0 Yes [id number] 2.5mg Inhale 3 [facility] 2.5 mg /3 4-28 mL every 8 [facility] of mL (0.083 00:00: (eight) [place] %) 00 hours as Medical nebulizer needed for Bran ch solution Wheezing or Shortness of Breath. atorvastati 3-0 Yes [id number] 20mg Take 1 [facility] n 20 mg 4-28 tablet by [facility] of tablet 00:00: mouth at [place] 00 bedtime. Medical Branch losartan 50 2022-0 Yes [id number] 25mg Take 0.5 [facility] mg tablet 4-28 tablets by [facility] of 00:00: mouth [place] 00 every day Medical at [address] (noon). ipratropium 2023-0 Yes [id number] .5mg Inhale 2.5 [facility] 0.02 % 4-28 mL every 6 ity of nebulizer 00:00: (six) [place] solution 00 hours as Medical needed for Branch Wheezing or Shortness of Breath. albuterol 2023-0 Yes [id number] 2.5mg Inhale 3 [facility] 2.5 mg /3 4-28 mL every 8 [facility] of mL (0.083 00:00: (eight) [place] %) 00 hours as Medical nebulizer needed for Bran ch solution Wheezing or Shortness of Breath. atorvastati 3-0 Yes [id number] 20mg Take 1 [facility] n 20 mg 4-28 tablet by [facility] of tablet 00:00: mouth at [place] 00 bedtime. Medical Branch losartan 50 2022-0 Yes [id number] 25mg Take 0.5 [facility] mg tablet 4-28 tablets by [facility] of 00:00: mouth [place] 00 every day Medical at [address] (noon). ipratropium 2023-0 Yes [id number] .5mg Inhale 2.5 [facility] 0.02 % 4-28 mL every 6 ity of nebulizer 00:00: (six) [place] solution 00 hours as Medical needed for Branch Wheezing or Shortness of Breath. albuterol 3-0 Yes [id number] 2.5mg Inhale 3 [facility] 2.5 mg /3 4-28 mL every 8 [facility] of mL (0.083 00:00: (eight) [place] %) 00 hours as Medical nebulizer needed for Bran ch solution Wheezing or Shortness of Breath. atorvastati 2022-0 Yes [id number] 20mg Take 1 [facility] n 20 mg 4-28 tablet by [facility] of tablet 00:00: mouth at [place] 00 bedtime. Medical Branch losartan 50 2022-0 Yes [id number] 25mg Take 0.5 [facility] mg tablet 4-28 tablets by [facility] of 00:00: mouth [place] 00 every day Medical at [address] (noon). ipratropium 3-0 Yes [id number] .5mg Inhale 2.5 [facility] 0.02 % 4-28 mL every 6 ity of nebulizer 00:00: (six) [place] solution 00 hours as Medical needed for Branch Wheezing or Shortness of Breath. albuterol 3-0 Yes [id number] 2.5mg Inhale 3 [facility] 2.5 mg /3 4-28 mL every 8 [facility] of mL (0.083 00:00: (eight) [place] %) 00 hours as Medical nebulizer needed for Bran ch solution Wheezing or Shortness of Breath. atorvastati 3-0 Yes [id number] 20mg Take 1 [facility] n 20 mg 4-28 tablet by [facility] of tablet 00:00: mouth at [place] 00 bedtime. Medical Branch losartan 50 2022-0 Yes [id number] 25mg Take 0.5 [facility] mg tablet 4-28 tablets by [facility] of 00:00: mouth [place] 00 every day Medical at [address] (noon). ipratropium 2023-0 Yes [id number] .5mg Inhale 2.5 [facility] 0.02 % 4-28 mL every 6 ity of nebulizer 00:00: (six) [place] solution 00 hours as Medical needed for Branch Wheezing or Shortness of Breath. albuterol 3-0 Yes [id number] 2.5mg Inhale 3 [facility] 2.5 mg /3 4-28 mL every 8 [facility] of mL (0.083 00:00: (eight) [place] %) 00 hours as Medical nebulizer needed for Bran ch solution Wheezing or Shortness of Breath. atorvastati 2022-0 Yes [id number] 20mg Take 1 [facility] n 20 mg 4-28 tablet by [facility] of tablet 00:00: mouth at [place] 00 bedtime. Medical Branch losartan 50 2022-0 Yes [id number] 25mg Take 0.5 [facility] mg tablet 4-28 tablets by it[facility] of 00:00: mouth [place] 00 every day Medical at [address] (noon). ipratropium 3-0 Yes [id number] .5mg Inhale 2.5 [facility] 0.02 % 4-28 mL every 6 ity of nebulizer 00:00: (six) [place] solution 00 hours as Medical needed for Branch Wheezing or Shortness of Breath. albuterol 2022-0 Yes [id number] 2.5mg Inhale 3 [facility] 2.5 mg /3 4-28 mL every 8 [facility] of mL (0.083 00:00: (eight) [place] %) 00 hours as Medical nebulizer needed for Bran ch solution Wheezing or Shortness of Breath. atorvastati 2022-0 Yes [id number] 20mg Take 1 [facility] n 20 mg 4-28 tablet by [facility] of tablet 00:00: mouth at [place] 00 bedtime. Medical Branch losartan 50 2022-0 Yes [id number] 25mg Take 0.5 [facility] mg tablet 4-28 tablets by it[facility] of 00:00: mouth [place] 00 every day Medical at [address] (noon). ipratropium 2023-0 Yes [id number] .5mg Inhale 2.5 [facility] 0.02 % 4-28 mL every 6 ity of nebulizer 00:00: (six) [place] solution 00 hours as Medical needed for Branch Wheezing or Shortness of Breath. albuterol 2023-0 Yes [id number] 2.5mg Inhale 3 [facility] 2.5 mg /3 4-28 mL every 8 ity of mL (0.083 00:00: (eight) [place] %) 00 hours as Medical nebulizer needed for Bran ch solution Wheezing or Shortness of Breath. atorvastati 3-0 Yes [id number] 20mg Take 1 [facility] n 20 mg 4-28 tablet by it[facility] of tablet 00:00: mouth at [place] 00 bedtime. Medical Branch losartan 50 2022-0 Yes [id number] 25mg Take 0.5 [facility] mg tablet 4-28 tablets by [facility] of 00:00: mouth [place] 00 every day Medical at [address] (noon). ipratropium 3-0 Yes [id number] .5mg Inhale 2.5 [facility] 0.02 % 4-28 mL every 6 ity of nebulizer 00:00: (six) [place] solution 00 hours as Medical needed for Branch Wheezing or Shortness of Breath. albuterol 2023-0 Yes [id number] 2.5mg Inhale 3 [facility] 2.5 mg /3 4-28 mL every 8 ity of mL (0.083 00:00: (eight) [place] %) 00 hours as Medical nebulizer needed for Bran ch solution Wheezing or Shortness of Breath. atorvastati 2022-0 Yes [id number] 20mg Take 1 [facility] n 20 mg 4-28 tablet by [facility] of tablet 00:00: mouth at [place] 00 bedtime. Medical Branch losartan 50 2022-0 Yes [id number] 25mg Take 0.5 [facility] mg tablet 4-28 tablets by [facility] of 00:00: mouth [place] 00 every day Medical at [address] (noon). ipratropium 2023-0 Yes [id number] .5mg Inhale 2.5 [facility] 0.02 % 4-28 mL every 6 ity of nebulizer 00:00: (six) [place] solution 00 hours as Medical needed for Branch Wheezing or Shortness of Breath. albuterol 2023-0 Yes [id number] 2.5mg Inhale 3 [facility] 2.5 mg /3 4-28 mL every 8 ity of mL (0.083 00:00: (eight) [place] %) 00 hours as Medical nebulizer needed for Bran ch solution Wheezing or Shortness of Breath. atorvastati 3-0 Yes [id number] 20mg Take 1 [facility] n 20 mg 4-28 tablet by [facility] of tablet 00:00: mouth at [place] 00 bedtime. Medical Branch losartan 50 2022-0 Yes [id number] 25mg Take 0.5 [facility] mg tablet 4-28 tablets by [facility] of 00:00: mouth [place] 00 every day Medical at [address] [place] [address] (noon). ipratropium 2022-0 Yes [id number] .5mg Inhale 2.5 [facility] 0.02 % 4-28 mL every 6 ity of nebulizer 00:00: (six) [place] solution 00 hours as Medical needed for Branch Wheezing or Shortness of Breath. albuterol 2022-0 Yes [id number] 2.5mg Inhale 3 [facility] 2.5 mg /3 4-28 mL every 8 ity of mL (0.083 00:00: (eight) [place] %) 00 hours as Medical nebulizer needed for Bran ch solution Wheezing or Shortness of Breath. atorvastati 0 Yes [id number] 20mg Take 1 [facility] n 20 mg 4-28 tablet by [facility] of tablet 00:00: mouth at [place] 00 bedtime. Medical Branch losartan 50 0 Yes [id number] 25mg Take 0.5 [facility] mg tablet 4-28 tablets by ity of 00:00: mouth [place] 00 every day Medical at [address] [place] [address] (noon). atorvastati 2022-0 Yes [id number] 20mg Take 1 [facility] n 20 mg 4-28 tablet by ity of tablet 00:00: mouth at [place] 00 bedtime. Medical Branch losartan 50 2022-0 Yes [id number] 25mg Take 0.5 [facility] mg tablet 4-28 tablets by ity of 00:00: mouth [place] 00 every day Medical at [address] [place] [address] (noon). atorvastati 2022-0 Yes [id number] 20mg Take 1 [facility] n 20 mg 4-28 tablet by ity of tablet 00:00: mouth at [place] 00 bedtime. Medical Branch losartan 50 2022-0 Yes [id number] 25mg Take 0.5 [facility] mg tablet 4-28 tablets by ity of 00:00: mouth [place] 00 every day Medical at [address] [place] [address] (noon). atorvastati 2022-0 Yes [id number] 20mg Take 1 [facility] n 20 mg 4-28 tablet by ity of tablet 00:00: mouth at [place] 00 bedtime. Medical Branch losartan 50 2022-0 Yes [id number] 25mg Take 0.5 [facility] mg tablet 4-28 tablets by ity of 00:00: mouth [place] 00 every day Medical at [address] [place] [address] (noon). atorvastati 2022-0 Yes [id number] 20mg Take 1 [facility] n 20 mg 4-28 tablet by ity of tablet 00:00: mouth at [place] 00 bedtime. Medical Branch losartan 50 2022-0 Yes [id number] 25mg Take 0.5 [facility] mg tablet 4-28 tablets by ity of 00:00: mouth [place] 00 every day Medical at [address] [place] [address] (noon). atorvastati 2022-0 Yes [id number] 20mg Take 1 [facility] n 20 mg 4-28 tablet by ity of tablet 00:00: mouth at [place] 00 bedtime. Medical Branch losartan 50 2022-0 Yes [id number] 25mg Take 0.5 [facility] mg tablet 4-28 tablets by ity of 00:00: mouth [place] 00 every day Medical at [address] [place] [address] (noon). atorvastati 2022-0 Yes [id number] 20mg Take 1 [facility] n 20 mg 4-28 tablet by ity of tablet 00:00: mouth at [place] 00 bedtime. Medical [facility] losartan 50 2022-0 Yes [id number] 25mg Take 0.5 [facility] mg tablet 4-28 tablets by ity of 00:00: mouth [place] 00 every day Medical at [address] [place] [address] (noon). atorvastati 2022-0 Yes [id number] 20mg Take 1 [facility] n 20 mg 4-28 tablet by ity of tablet 00:00: mouth at [place] 00 bedtime. Medical [facility] losartan 50 2022-0 Yes [id number] 25mg Take 0.5 [facility] mg tablet 4-28 tablets by ity of 00:00: mouth [place] 00 every day Medical at [address] [place] [address] (noon). atorvastati 2022-0 Yes [id number] 20mg Take 1 [facility] n 20 mg 4-28 tablet by ity of tablet 00:00: mouth at [place] 00 bedtime. Medical [facility] losartan 50 2022-0 Yes [id number] 25mg Take 0.5 [facility] mg tablet 4-28 tablets by ity of 00:00: mouth [place] 00 every day Medical at [address] [place] [address] (noon). atorvastati 2022-0 Yes [id number] 20mg Take 1 [facility] n 20 mg 4-28 tablet by ity of tablet 00:00: mouth at [place] 00 bedtime. Medical [facility] losartan 50 2022-0 Yes [id number] 25mg Take 0.5 [facility] mg tablet 4-28 tablets by ity of 00:00: mouth [place] 00 every day Medical at [address] [place] [address] (noon). atorvastati 2022-0 Yes [id number] 20mg Take 1 [facility] n 20 mg 4-28 tablet by ity of tablet 00:00: mouth at [place] 00 bedtime. Medical [facility] losartan 50 2022-0 Yes [id number] 25mg Take 0.5 [facility] mg tablet 4-28 tablets by ity of 00:00: mouth [place] 00 every day Medical at [address] [place] [address] (noon). atorvastati 2022-0 Yes [id number] 20mg Take 1 [facility] n 20 mg 4-28 tablet by ity of tablet 00:00: mouth at [place] 00 bedtime. [facility] losartan 50 2022-0 Yes [id number] 25mg Take 0.5 [facility] mg tablet 4-28 tablets by ity of 00:00: mouth [place] 00 every day Medical at [address] [place] [address] (noon). atorvastati 2022-0 Yes [id number] 20mg Take 1 [facility] n 20 mg 4-28 tablet by ity of tablet 00:00: mouth at [place] 00 bedtime. Medical [facility] losartan 50 2022-0 Yes [id number] 25mg Take 0.5 [facility] mg tablet 4-28 tablets by ity of 00:00: mouth [place] 00 every day Medical at [address] [place] [address] (noon). atorvastati 2022-0 Yes [id number] 20mg Take 1 [facility] n 20 mg 4-28 tablet by ity of tablet 00:00: mouth at [place] 00 bedtime. [facility] losartan 50 2022-0 Yes [id number] 25mg Take 0.5 [facility] mg tablet 4-28 tablets by ity of 00:00: mouth [place] 00 every day Medical at [address] [place] [address] (noon). atorvastati 2022-0 Yes [id number] 20mg Take 1 [facility] n 20 mg 4-28 tablet by ity of tablet 00:00: mouth at [place] 00 bedtime. [facility] losartan 50 2022-0 Yes [id number] 25mg Take 0.5 [facility] mg tablet 4-28 tablets by ity of 00:00: mouth [place] 00 every day Medical at [address] [place] [address] (noon). atorvastati 2022-0 Yes [id number] 20mg Take 1 [facility] n 20 mg 4-28 tablet by ity of tablet 00:00: mouth at [place] 00 bedtime. [facility] losartan 50 2022-0 Yes [id number] 25mg Take 0.5 [facility] mg tablet 4-28 tablets by ity of 00:00: mouth [place] 00 every day Medical at [address] [place] [address] (noon). atorvastati 2022-0 Yes [id number] 20mg Take 1 [facility] n 20 mg 4-28 tablet by ity of tablet 00:00: mouth at [place] 00 bedtime. [facility] losartan 50 2022-0 Yes [id number] 25mg Take 0.5 [facility] mg tablet 4-28 tablets by ity of 00:00: mouth [place] 00 every day Medical at [address] [place] [address] (noon). atorvastati 2022-0 Yes [id number] 20mg Take 1 [facility] n 20 mg 4-28 tablet by ity of tablet 00:00: mouth at [place] 00 bedtime. [facility] losartan 50 2022-0 Yes [id number] 25mg Take 0.5 [facility] mg tablet 4-28 tablets by ity of 00:00: mouth [place] 00 every day Medical at [address] [place] [address] (noon). atorvastati 2022-0 Yes [id number] 20mg Take 1 [facility] n 20 mg 4-28 tablet by [facility] of tablet 00:00: mouth at [place] 00 bedtime. [facility] losartan 50 2022-0 Yes [id number] 25mg Take 0.5 [facility] mg tablet 4-28 tablets by ity of 00:00: mouth [place] 00 every day Medical at [address] [place] [address] (noon). atorvastati 2022-0 Yes [id number] 20mg Take 1 [facility] n 20 mg 4-28 tablet by [facility] of tablet 00:00: mouth at [place] 00 bedtime. [facility] losartan 50 2022-0 Yes [id number] 25mg Take 0.5 [facility] mg tablet 4-28 tablets by ity of 00:00: mouth [place] 00 every day Medical at [address] [place] [address] (noon). atorvastati 2022-0 Yes [id number] 20mg Take 1 [facility] n 20 mg 4-28 tablet by [facility] of tablet 00:00: mouth at [place] 00 bedtime. Medical Branch losartan 50 2022-0 Yes [id number] 25mg Take 0.5 [facility] mg tablet 4-28 tablets by [facility] of 00:00: mouth [place] 00 every day Medical at [address] [place] [address] (noon). atorvastati 2022-0 Yes [id number] 20mg Take 1 [facility] n 20 mg 4-28 tablet by it[facility] of tablet 00:00: mouth at [place] 00 bedtime. Medical Branch losartan 50 2022-0 Yes [id number] 25mg Take 0.5 [facility] mg tablet 4-28 tablets by it[facility] of 00:00: mouth [place] 00 every day Medical at [address] [place] [address] (noon). atorvastati 2022-0 Yes [id number] 20mg Take 1 [facility] n 20 mg 4-28 tablet by ity of tablet 00:00: mouth at [place] 00 bedtime. [facility] losartan 50 2022-0 Yes [id number] 25mg Take 0.5 [facility] mg tablet 4-28 tablets by ity of 00:00: mouth [place] 00 every day Medical at [address] [place] [address] (noon). losartan 50 2022-0 Yes [id number] 25mg Take 0.5 [facility] mg tablet 4-28 tablets by ity of 00:00: mouth [place] 00 every day Medical at [address] [place] [address] (noon). losartan 50 2022-0 Yes [id number] 25mg Take 0.5 [facility] mg tablet 4-28 tablets by ity of 00:00: mouth [place] 00 every day Medical at [address] [place] [address] (noon). losartan 50 2022-0 Yes [id number] 25mg Take 0.5 [facility] mg tablet 4-28 tablets by ity of 00:00: mouth [place] 00 every day Medical at [address] [place] [address] (noon). losartan 50 2022-0 Yes [id number] 25mg Take 0.5 [facility] mg tablet 4-28 tablets by ity of 00:00: mouth [place] 00 every day Medical at [address] [place] [address] (noon). losartan 50 2022-0 Yes [id number] 25mg Take 0.5 [facility] mg tablet 4-28 tablets by ity of 00:00: mouth [place] 00 every day Medical at [address] [place] [address] (noon). atorvastati 2022-0 2022- No [id number] 20mg Take 1 [facility] n 20 mg 4-28 - tablet by ity of tablet 00:00: 00:00 mouth at [place] 00 :00 bedtime. [facility] atorvastati 2022-0 2022- No [id number] 20mg Take 1 [facility] n 20 mg 4-28 -29 tablet by ity of tablet 00:00: 00:00 mouth at [place] 00 :00 bedtime. Medical Branch ipratropium 3-0 3- No [id number] .5mg Inhale 2.5 [facility] 0.02 % 28 06-27 mL every 6 ity of nebulizer 00:00: 00:00 (six) [place] solution 00 :00 hours as Medical needed for Branch Wheezing or Shortness of Breath. albuterol 3-0 3- No [id number] 2.5mg Inhale 3 [facility] 2.5 mg /3 - 06-27 mL every 8 ity of mL (0.083 00:00: 00:00 ([place] :[place] hours as Medical nebulizer needed for Bran ch solution Wheezing or Shortness of Breath. ipratropium 3-0 3- No [id number] .5mg Inhale 2.5 [facility] 0.02 % 06-10 06-27 mL every 6 ity of nebulizer 00:00: 00:00 (six) [place] solution 00 :00 hours as Medical needed for Branch Wheezing or Shortness of Breath. albuterol 2022-0 3- No [id number] 2.5mg Inhale 3 [facility] 2.5 mg /3 06-10 06-27 mL every 8 ity of mL (0.083 00:00: 00:[place] ([place] 00 :00 hours as Medical nebulizer needed for Bran ch solution Wheezing or Shortness of Breath. ipratropium 2022-0 3- No [id number] .5mg Inhale 2.5 [facility] 0.02 % 06-10 06-27 mL every 6 ity of nebulizer 00:00: 00:00 (six) [place] solution 00 :00 hours as Medical needed for Branch Wheezing or Shortness of Breath. albuterol 3-0 3- No [id number] 2.5mg Inhale 3 [facility] 2.5 mg /3 - 06-27 mL every 8 ity of mL (0.083 00:00: 00:[place] ([place] 00 :00 hours as Medical nebulizer needed for Bran ch solution Wheezing or Shortness of Breath. furosemide 2022-0 3- No [id number] 40mg Take 1 [facility] 40 mg 06-10-09 tablet by ity of tablet 00:00: 00:00 [...] Branch and evening. furosemide 2022-0 3- No 40mg Take 1 [facility] ers 40 [...] :00 every Medical morning Branch and evening. spironolact 3-0 3- No 12.5mg QD Take 0.[address] [facility] 4-20 05-20 tablets [facility] (ALDACTONE) 00:00: 23:59 (12.5 mg M edical 25 MG 00 :00 total) by Center tablet mouth in the morning for 30 days. spironolact 3-0 3- No 12.5mg QD Take 0.[address] [facility] 4-20 05-20 tablets [facility] (ALDACTONE) 00:00: 23:59 (12.5 mg M edical 25 MG 00 :00 total) by Center tablet mouth in the morning for 30 days. spironolact 3-0 3- No 12.5mg QD Take 0.[address] [facility] 4-20 05-20 tablets [facility] (ALDACTONE) 00:00: 23:59 (12.5 mg M edical 25 MG 00 :00 total) by Center tablet mouth in the morning for 30 days. carvediloL 3-0 3- No 6.25mg Q.5D Take [address] [facility] [address] [facility] (COREG) 4-19 05-19 tablet [facility] 6.25 MG 00:00: 23:59 (6.25 mg Medic al tablet 00 :00 total) by Center mouth in the morning and 1 tablet (6.25 mg total) before bedtime. Do all this for 30 days. furosemide 2022-2022- No 40mg Q.5D Take [address] [facility] (LASIX) 40 -01 07- tablet (40 [facility] MG tablet 00:00: 23:59 mg total) Me dical 00 :00 by mouth Center in the morning and 1 tablet (40 mg total) before bedtime. Do all this for 30 days. ipratropium 2022-0 2022- No 3mL Q.5D Take [address] [facility] -albuteroL 06-01-19 by [employer] ([employer]) 00:00: 23:59 nebulizati M edical 0.5 mg-3 00 :00 on in the Center mg(2.5 mg morning base)/3 mL and 3 mLs nebulizer before solution bedtime. Do all this for 30 days. carvediloL 2022-2022- No 6.25mg Q.5D Take [address] [facility] [address] [facility] (COREG) 06-01 tablet [facility] 6.25 MG 00:00: 23:59 (6.25 mg Medic al tablet 00 :00 total) by Center mouth in the morning and 1 tablet (6.25 mg total) before bedtime. Do all this for 30 days. furosemide 2022- No 40mg Q.5D Take [address] [facility] (LASIX) 40 06-01- tablet (40 Susan kes MG tablet 00:00: 23:59 mg total) Me dical 00 :00 by mouth Center in the morning and 1 tablet (40 mg total) before bedtime. Do all this for 30 days. ipratropium 2022-0 2022- No 3mL Q.5D Take [address] [facility] -albuteroL 06-01-19 by [employer] ([employer]) 00:00: 23:59 nebulizati M edical 0.5 mg-3 00 :00 on in the Center mg(2.5 mg morning base)/3 mL and 3 mLs nebulizer before solution bedtime. Do all this for 30 days. carvediloL 2022-0 2022- No 6.25mg Q.5D Take [address] [facility] [address] [facility] (COREG) 4-19 05-19 tablet [facility] 6.25 MG 00:00: 23:59 (6.25 mg Medic al tablet 00 :00 total) by Center mouth in the morning and 1 tablet (6.25 mg total) before bedtime. Do all this for 30 days. furosemide 2022- No 40mg Q.5D Take [address] [facility] (LASIX) 40 06-01 tablet (40 Susan kes MG tablet 00:00: 23:59 mg total) Me dical 00 :00 by mouth Center in the morning and 1 tablet (40 mg total) before bedtime. Do all this for 30 days. ipratropium 2022- No 3mL Q.5D Take [address] [facility] -albuteroL 06-01 by [facility] ([facility]O-NEB) 00:00: 23:59 nebulizati M edical 0.5 mg-3 00 :00 on in the Center mg(2.5 mg morning base)/3 mL and 3 mLs nebulizer before solution bedtime. Do all this for 30 days. benzonatate 2022- No 200mg Q.[id number] Take [address] [facility] (TESSALON) 06-01 [id number] capsules [facility] 100 MG 00:00: 23:59 3D (200 mg Medical capsule 00 :00 total) by Center mouth in the morning and 2 capsules (200 mg total) at noon and 2 capsules (200 mg total) in the evening. Do all this for 10 days. benzonatate 2022-0 2022- No 200mg Q.[id number] Take [address] [facility] (TESSALON) 06-01 [id number] [facility] 100 MG 00:00: 23:59 3D (200 mg Medical capsule 00 :00 total) by Center mouth in the morning and 2 capsules (200 mg total) at noon and 2 capsules (200 mg total) in the evening. Do all this for 10 days. benzonatate 2022-0 2022- No 200mg Q.[id number] Take [address] [facility] (TESSALON) 06-01 [id number] [facility] 100 MG 00:00: 23:59 3D (200 mg Medical capsule 00 :00 total) by Center mouth in the morning and 2 capsules (200 mg total) at noon and 2 capsules (200 mg total) in the evening. Do all this for 10 days. losartan 50 2023-0 Yes 25mg Take 0.5 [facility] mg tablet 4-12 tablets by ity of 00:00: mouth [place] 00 every day Medical at [address] [place] [address] (noon). losartan 50 2023-0 Yes 25mg Take 0.5 [facility] mg tablet 4-12 tablets by ity of 00:00: mouth [place] 00 every day Medical at [address] [place] [address] (noon). losartan 50 2023-0 Yes 25mg Take 0.5 [facility] mg tablet 4-12 tablets by ity of 00:00: mouth [place] 00 every day Medical at [address] [place] [address] (noon). losartan 50 2023-0 Yes 25mg Take 0.5 [facility] mg tablet 4-12 tablets by ity of 00:00: mouth [place] 00 every day Medical at [address] [place] [address] (noon). losartan 50 2023-0 Yes 25mg Take 0.5 [facility] mg tablet 4-12 tablets by ity of 00:00: mouth [place] 00 every day Medical at [address] [place] [address] (noon). losartan 50 2023-0 Yes 25mg Take 0.5 [facility] mg tablet 4-12 tablets by ity of 00:00: mouth [place] 00 every day Medical at [address] [place] [address] (noon). losartan 50 2023-0 Yes 25mg Take 0.5 [facility] mg tablet 4-12 tablets by ity of 00:00: mouth [place] 00 every day Medical at [address] [place] [address] (noon). losartan 50 2023-0 Yes 25mg Take 0.5 [facility] mg tablet 4-12 tablets by ity of 00:00: mouth [place] 00 every day Medical at [address] [place] [address] (noon). losartan 50 2023-0 Yes 25mg Take 0.5 [facility] mg tablet 4-12 tablets by ity of 00:00: mouth [place] 00 every day Medical at [address] [place] [address] (noon). losartan 50 2023-0 Yes 25mg Take 0.5 [facility] mg tablet 4-12 tablets by ity of 00:00: mouth [place] 00 every day Medical at [address] [place] [address] (noon). losartan 50 2023-0 2023- No 25mg Take 0.5 [facility] mg tablet 4-12 04-28 tablets by ity of 00:00: 00:00 mouth [place] 00 :00 every day Medical at [address] [place] [address] (noon). losartan 50 2022-0 2023- No 25mg Take 0.5 [facility]ivers mg tablet 4-28 tablets by ity of 00:00: 00:00 mouth [place] 00 :00 every day Medical at [address] [place] [address] (noon). losartan 50 2022-0 2023- No 25mg Take 0.5 [facility] mg tablet 05-25-28 tablets by ity of 00:00: 00:00 mouth [place] 00 :00 every day Medical at [address] [place] [address] (noon). losartan 50 2022-0 2023- No 50mg Take 1 [facility] vers mg tablet 05-25-12 tablet by ity of 00:00: 00:00 mouth [place] 00 :00 daily. Medical Branch losartan 50 2022-0 2023- No 25mg Take 0.5 [facility] nivers mg tablet 05-25-12 tablets by ity of 00:00: 00:00 mouth [place] 00 :00 daily. Medical Branch losartan 50 2022-0 2023- No 50mg Take 1 [facility] vers mg tablet 05-25-12 tablet by ity of 00:00: 00:00 mouth [place] 00 :00 daily. Medical Branch losartan 50 2022-0 2023- No 25mg Take 0.5 [facility] nivers mg tablet 05-25-12 tablets by ity of 00:00: 00:00 mouth [place] 00 :00 daily. Medical Branch furosemide 2022-0 Yes [id number] 40mg Take 1 [facility] 40 mg 4-04 tablet by ity of tablet 00:00: mouth [place] 00 daily. Medical Branch terbinafine 2022-0 Yes [id number] 250mg Take 1 [facility] HCL 250 mg 4-04 tablet by ity of tablet 00:00: mouth [place] 00 daily. Medical Branch benzonatate 2022-0 Yes [id number] 200mg Take 1 [facility] 200 mg 4-04 capsule by ity of capsule 00:00: mouth 3 [place] 00 (three) Medical times [place] daily as needed for Cough. furosemide 2022-0 Yes [id number] 40mg Take 1 [facility] 40 mg 4-04 tablet by ity of tablet 00:00: mouth [place] 00 daily. Medical Branch terbinafine 2022-0 Yes [id number] 250mg Take 1 [facility] HCL 250 mg 4-04 tablet by ity of tablet 00:00: mouth [place] 00 daily. Medical Branch benzonatate 2022-0 Yes [id number] 200mg Take 1 [facility] 200 mg 4-04 capsule by ity of capsule 00:00: mouth 3 (three) Medical times Branch daily as needed for Cough. furosemide 2022-0 Yes [id number] 40mg Take 1 [facility] 40 mg 4-04 tablet by ity of tablet 00:00: mouth [place] 00 daily. Medical Branch terbinafine 2022-0 Yes [id number] 250mg Take 1 [facility] HCL 250 mg 4-04 tablet by ity of tablet 00:00: mouth [place] 00 daily. Medical Branch benzonatate 2022-0 Yes [id number] 200mg Take 1 [facility] 200 mg 4-04 capsule by ity of capsule 00:00: mouth 3 (three) Medical times Branch daily as needed for Cough. furosemide 2022-0 Yes [id number] 40mg Take 1 [facility] 40 mg 4-04 tablet by ity of tablet 00:00: mouth [place] 00 daily. Medical Branch terbinafine 2022-0 Yes [id number] 250mg Take 1 [facility] HCL 250 mg 4-04 tablet by ity of tablet 00:00: mouth [place] 00 daily. Medical Branch benzonatate 2022-0 Yes [id number] 200mg Take 1 [facility] 200 mg 4-04 capsule by ity of capsule 00:00: mouth 3 (three) Medical times Branch daily as needed for Cough. furosemide 2022-0 Yes [id number] 40mg Take 1 [facility] 40 mg 4-04 tablet by ity of tablet 00:00: mouth [place] 00 daily. Medical Branch terbinafine 2022-0 Yes [id number] 250mg Take 1 [facility] HCL 250 mg 4-04 tablet by ity of tablet 00:00: mouth [place] 00 daily. Medical Branch benzonatate 2022-0 Yes [id number] 200mg Take 1 [facility] 200 mg 4-04 capsule by ity of capsule 00:00: mouth 3 00 (three) Medical times Branch daily as needed for Cough. furosemide 2022-0 Yes [id number] 40mg Take 1 [facility] 40 mg 4-04 tablet by ity of tablet 00:00: mouth [place] 00 daily. Medical Branch terbinafine 2022-0 Yes [id number] 250mg Take 1 [facility] HCL 250 mg 4-04 tablet by ity of tablet 00:00: mouth [place] 00 daily. Medical Branch benzonatate 2022-0 Yes [id number] 200mg Take 1 [facility] 200 mg 4-04 capsule by ity of capsule 00:00: mouth 3 [place] (three) Medical times Branch daily as needed for Cough. furosemide 2022-0 Yes [id number] 40mg Take 1 [facility] 40 mg 4-04 tablet by ity of tablet 00:00: mouth [place] 00 daily. Medical Branch terbinafine 2022-0 Yes [id number] 250mg Take 1 [facility] HCL 250 mg 4-04 tablet by ity of tablet 00:00: mouth [place] 00 daily. Medical Branch benzonatate 2022-0 Yes [id number] 200mg Take 1 [facility] 200 mg 4-04 capsule by ity of capsule 00:00: mouth 3 (three) Medical times Branch daily as needed for Cough. furosemide 2022-0 Yes [id number] 40mg Take 1 [facility] 40 mg 4-04 tablet by ity of tablet 00:00: mouth [place] 00 daily. Medical Branch terbinafine 2022-0 Yes [id number] 250mg Take 1 [facility] HCL 250 mg 4-04 tablet by ity of tablet 00:00: mouth [place] 00 daily. Medical Branch benzonatate 2022-0 Yes [id number] 200mg Take 1 [facility] 200 mg 4-04 capsule by ity of capsule 00:00: mouth 3 (three) Medical times Branch daily as needed for Cough. furosemide 2022-0 Yes [id number] 40mg Take 1 [facility] 40 mg 4-04 tablet by ity of tablet 00:00: mouth [place] 00 daily. Medical Branch terbinafine 2022-0 Yes [id number] 250mg Take 1 [facility] HCL 250 mg 4-04 tablet by ity of tablet 00:00: mouth [place] 00 daily. Medical Branch benzonatate 2022-0 Yes [id number] 200mg Take 1 [facility] 200 mg 4-04 capsule by ity of capsule 00:00: mouth 3 (three) Medical times Branch daily as needed for Cough. furosemide 2022-0 Yes [id number] 40mg Take 1 [facility] 40 mg 4-04 tablet by ity of tablet 00:00: mouth [place] 00 daily. Medical Branch terbinafine 2022-0 Yes [id number] 250mg Take 1 [facility] HCL 250 mg 4-04 tablet by ity of tablet 00:00: mouth [place] 00 daily. Medical Branch benzonatate 2023-0 Yes [id number] 200mg Take 1 [facility] 200 mg 4-04 capsule by ity of capsule 00:00: mouth 3 (three) Medical times Branch daily as needed for Cough. terbinafine 2023-0 Yes [id number] 250mg Take 1 [facility] HCL 250 mg 4-04 tablet by ity of tablet 00:00: mouth [place] 00 daily. Medical Branch benzonatate 3-0 Yes [id number] 200mg Take 1 [facility] 200 mg 4-04 capsule by ity of capsule 00:00: mouth 3 (three) Medical times Branch daily as needed for Cough. terbinafine 2023-0 Yes [id number] 250mg Take 1 [facility] HCL 250 mg 4-04 tablet by ity of tablet 00:00: mouth 00 daily. Medical Branch benzonatate 3-0 Yes [id number] 200mg Take 1 [facility] 200 mg 4-04 capsule by ity of capsule 00:00: mouth (three) Medical times Branch daily as needed for Cough. terbinafine 3-0 Yes [id number] 250mg Take 1 [facility] HCL 250 mg 4-04 tablet by ity of tablet 00:00: mouth 00 daily. Medical Branch benzonatate 3-0 Yes [id number] 200mg Take 1 [facility] 200 mg 4-04 capsule by ity of capsule 00:00: mouth (three) Medical times Branch daily as needed for Cough. terbinafine 2023-0 Yes [id number] 250mg Take 1 [facility] HCL 250 mg 4-04 tablet by ity of tablet 00:00: mouth [place] 00 daily. Medical Branch benzonatate 3-0 Yes [id number] 200mg Take 1 [facility] 200 mg 4-04 capsule by ity of capsule 00:00: mouth 3 (three) Medical times Branch daily as needed for Cough. terbinafine 2023-0 Yes [id number] 250mg Take 1 [facility] HCL 250 mg 4-04 tablet by ity of tablet 00:00: mouth [place] 00 daily. Medical Branch benzonatate 2023-0 Yes [id number] 200mg Take 1 [facility] 200 mg 4-04 capsule by ity of capsule 00:00: mouth 3 (three) Medical times Branch daily as needed for Cough. terbinafine 2023-0 Yes [id number] 250mg Take 1 [facility] HCL 250 mg 4-04 tablet by ity of tablet 00:00: mouth [place] 00 daily. Medical Branch benzonatate 3-0 Yes [id number] 200mg Take 1 [facility] 200 mg 4-04 capsule by ity of capsule 00:00: mouth 3 (three) Medical times Branch daily as needed for Cough. terbinafine 2023-0 Yes [id number] 250mg Take 1 [facility] HCL 250 mg 4-04 tablet by [facility] of tablet 00:00: mouth [place] 00 daily. Medical Branch benzonatate 3-0 Yes [id number] 200mg Take 1 [facility] 200 mg 4-04 capsule by ity of capsule 00:00: mouth 3 (three) Medical times Branch daily as needed for Cough. terbinafine 3-0 Yes [id number] 250mg Take 1 [facility] HCL 250 mg 4-04 tablet by ity of tablet 00:00: mouth [place] 00 daily. Medical Branch benzonatate 3-0 Yes [id number] 200mg Take 1 [facility] 200 mg 4-04 capsule by ity of capsule 00:00: mouth (three) Medical times Branch daily as needed for Cough. terbinafine 3-0 Yes [id number] 250mg Take 1 [facility] HCL 250 mg 4-04 tablet by ity of tablet 00:00: mouth [place] 00 daily. Medical Branch benzonatate 3-0 Yes [id number] 200mg Take 1 [facility] 200 mg 4-04 capsule by [facility]y of capsule 00:00: mouth (three) Medical times Branch daily as needed for Cough. terbinafine 3-0 Yes [id number] 250mg Take 1 [facility] HCL 250 mg 4-04 tablet by ity of tablet 00:00: mouth [place] 00 daily. Medical Branch benzonatate 3-0 Yes [id number] 200mg Take 1 [facility] 200 mg 4-04 capsule by ity of capsule 00:00: mouth 3 (three) Medical times Branch daily as needed for Cough. terbinafine 2023-0 Yes [id number] 250mg Take 1 [facility] HCL 250 mg 4-04 tablet by ity of tablet 00:00: mouth [place] 00 daily. Medical Branch benzonatate 3-0 Yes [id number] 200mg Take 1 [facility] 200 mg 4-04 capsule by ity of capsule 00:00: mouth 3 (three) Medical times Branch daily as needed for Cough. terbinafine 2023-0 Yes [id number] 250mg Take 1 [facility] HCL 250 mg 4-04 tablet by ity of tablet 00:00: mouth [place] 00 daily. Medical Branch benzonatate 2023-0 Yes [id number] 200mg Take 1 [facility] 200 mg 4-04 capsule by ity of capsule 00:00: mouth (three) Medical times Branch daily as needed for Cough. terbinafine 2023-0 Yes [id number] 250mg Take 1 [facility] HCL 250 mg 4-04 tablet by ity of tablet 00:00: mouth 00 daily. Medical Branch benzonatate 2023-0 Yes [id number] 200mg Take 1 [facility] 200 mg 4-04 capsule by ity of capsule 00:00: mouth (three) Medical times Branch daily as needed for Cough. terbinafine 2023-0 Yes [id number] 250mg Take 1 [facility] HCL 250 mg 4-04 tablet by ity of tablet 00:00: mouth 00 daily. Medical Branch benzonatate 2023-0 Yes [id number] 200mg Take 1 [facility] 200 mg 4-04 capsule by ity of capsule 00:00: mouth (three) Medical times Branch daily as needed for Cough. terbinafine 2023-0 Yes [id number] 250mg Take 1 [facility] HCL 250 mg 4-04 tablet by ity of tablet 00:00: mouth 00 daily. Medical Branch benzonatate 2023-0 Yes [id number] 200mg Take 1 [facility] 200 mg 4-04 capsule by ity of capsule 00:00: mouth (three) Medical times Branch daily as needed for Cough. terbinafine 2023-0 Yes [id number] 250mg Take 1 [facility] HCL 250 mg 4-04 tablet by ity of tablet 00:00: mouth [place] 00 daily. Medical Branch benzonatate 2023-0 Yes [id number] 200mg Take 1 [facility] 200 mg 4-04 capsule by ity of capsule 00:00: mouth 3 (three) Medical times Branch daily as needed for Cough. terbinafine 2023-0 Yes [id number] 250mg Take 1 [facility] HCL 250 mg 4-04 tablet by ity of tablet 00:00: mouth 00 daily. Medical Branch benzonatate 2023-0 Yes [id number] 200mg Take 1 [facility] 200 mg 4-04 capsule by ity of capsule 00:00: mouth (three) Medical times Branch daily as needed for Cough. terbinafine 2023-0 Yes [id number] 250mg Take 1 [facility] HCL 250 mg 4-04 tablet by ity of tablet 00:00: mouth 00 daily. Medical Branch benzonatate 2023-0 Yes [id number] 200mg Take 1 [facility] 200 mg 4-04 capsule by ity of capsule 00:00: mouth (three) Medical times Branch daily as needed for Cough. terbinafine 2023-0 Yes [id number] 250mg Take 1 [facility] HCL 250 mg 4-04 tablet by ity of tablet 00:00: mouth 00 daily. Medical Branch benzonatate 3-0 Yes [id number] 200mg Take 1 [facility] 200 mg 4-04 capsule by ity of capsule 00:00: mouth (three) Medical times Branch daily as needed for Cough. terbinafine 2023-0 Yes [id number] 250mg Take 1 [facility] HCL 250 mg 4-04 tablet by ity of tablet 00:00: mouth 00 daily. Medical Branch benzonatate 3-0 Yes [id number] 200mg Take 1 [facility] 200 mg 4-04 capsule by ity of capsule 00:00: mouth (three) Medical times Branch daily as needed for Cough. terbinafine 2023-0 Yes [id number] 250mg Take 1 [facility] HCL 250 mg 4-04 tablet by ity of tablet 00:00: mouth 00 daily. Medical Branch benzonatate 3-0 Yes [id number] 200mg Take 1 [facility] 200 mg 4-04 capsule by ity of capsule 00:00: mouth (three) Medical times Branch daily as needed for Cough. terbinafine 2023-0 Yes [id number] 250mg Take 1 [facility] HCL 250 mg 4-04 tablet by [facility]y of tablet 00:00: mouth 00 daily. Medical Branch benzonatate 2023-0 Yes [id number] 200mg Take 1 [facility] 200 mg 4-04 capsule by [facility] of capsule 00:00: mouth (three) Medical times Branch daily as needed for Cough. terbinafine 2023-0 Yes [id number] 250mg Take 1 [facility] HCL 250 mg 4-04 tablet by ity of tablet 00:00: mouth [place] 00 daily. Medical Branch benzonatate 3-0 Yes [id number] 200mg Take 1 [facility] 200 mg 4-04 capsule by [facility]y of capsule 00:00: mouth 3 (three) Medical times Branch daily as needed for Cough. terbinafine 2023-0 Yes [id number] 250mg Take 1 [facility] HCL 250 mg 4-04 tablet by [facility]y of tablet 00:00: mouth [place] 00 daily. Medical Branch benzonatate 3-0 Yes [id number] 200mg Take 1 [facility] 200 mg 4-04 capsule by [facility]y of capsule 00:00: mouth 3 (three) Medical times Branch daily as needed for Cough. terbinafine 2022-0 Yes [id number] 250mg Take 1 [facility] HCL 250 mg 4-04 tablet by [facility] of tablet 00:00: mouth [place] 00 daily. Medical Branch benzonatate 3-0 Yes [id number] 200mg Take 1 [facility] 200 mg 4-04 capsule by [facility] of capsule 00:00: mouth (three) Medical times Branch daily as needed for Cough. terbinafine 3-0 Yes [id number] 250mg Take 1 [facility] HCL 250 mg 4-04 tablet by [facility]y of tablet 00:00: mouth [place] 00 daily. Medical Branch benzonatate 3-0 Yes [id number] 200mg Take 1 [facility] 200 mg 4-04 capsule by [facility]y of capsule 00:00: mouth (three) Medical times Branch daily as needed for Cough. terbinafine 3-0 Yes [id number] 250mg Take 1 [facility] HCL 250 mg 4-04 tablet by [facility] of tablet 00:00: mouth [place] 00 daily. Medical Branch benzonatate 3-0 Yes [id number] 200mg Take 1 [facility] 200 mg 4-04 capsule by [facility] of capsule 00:00: mouth 3 (three) Medical times Branch daily as needed for Cough. terbinafine 2023-0 Yes [id number] 250mg Take 1 [facility] HCL 250 mg 4-04 tablet by [facility] of tablet 00:00: mouth [place] 00 daily. Medical Branch benzonatate 3-0 Yes [id number] 200mg Take 1 [facility] 200 mg 4-04 capsule by [facility]y of capsule 00:00: mouth (three) Medical times Branch daily as needed for Cough. terbinafine 2023-0 Yes [id number] 250mg Take 1 [facility] HCL 250 mg 4-04 tablet by [facility] of tablet 00:00: mouth 00 daily. Medical Branch benzonatate 2023-0 Yes [id number] 200mg Take 1 [facility] 200 mg 4-04 capsule by [facility] of capsule 00:00: mouth (three) Medical times Branch daily as needed for Cough. terbinafine 2023-0 Yes [id number] 250mg Take 1 [facility] HCL 250 mg 4-04 tablet by [facility]y of tablet 00:00: mouth 00 daily. Medical Branch benzonatate 3-0 Yes [id number] 200mg Take 1 [facility] 200 mg 4-04 capsule by [facility]y of capsule 00:00: mouth (three) Medical times Branch daily as needed for Cough. terbinafine 2023-0 Yes [id number] 250mg Take 1 [facility] HCL 250 mg 4-04 tablet by [facility] of tablet 00:00: mouth 00 daily. Medical Branch benzonatate 3-0 Yes [id number] 200mg Take 1 [facility] 200 mg 4-04 capsule by [facility] of capsule 00:00: mouth (three) Medical times Branch daily as needed for Cough. terbinafine 3-0 Yes [id number] 250mg Take 1 [facility] HCL 250 mg 4-04 tablet by [facility] of tablet 00:00: mouth 00 daily. Medical Branch benzonatate 3-0 Yes [id number] 200mg Take 1 [facility] 200 mg 4-04 capsule by [facility] of capsule 00:00: mouth (three) Medical times Branch daily as needed for Cough. terbinafine 2023-0 Yes [id number] 250mg Take 1 [facility] HCL 250 mg 4-04 tablet by [facility] of tablet 00:00: mouth 00 daily. Medical Branch benzonatate 2023-0 Yes [id number] 200mg Take 1 [facility] 200 mg 4-04 capsule by [facility] capsule 00:00: mouth (three) Medical times Branch daily as needed for Cough. terbinafine 2023-0 Yes [id number] 250mg Take 1 [facility] HCL 250 mg 4-04 tablet by [facility] tablet 00:00: mouth 00 daily. [facility] benzonatate 3-0 Yes [id number] 200mg Take 1 [facility] 200 mg 4-04 capsule by [facility] capsule 00:00: mouth 3 (three) Medical times Branch daily as needed for Cough. terbinafine 3-0 Yes [id number] 250mg Take 1 [facility] HCL 250 mg 4-04 tablet by [facility] tablet 00:00: mouth [place] 00 daily. [facility] benzonatate 3-0 Yes [id number] 200mg Take 1 [facility] 200 mg 4-04 capsule by [facility] capsule 00:00: mouth 3 (three) Medical times Branch daily as needed for Cough. terbinafine 3-0 Yes [id number] 250mg Take 1 [facility] HCL 250 mg 4-04 tablet by [facility] tablet 00:00: mouth [place] 00 daily. [facility] benzonatate 2022-0 Yes [id number] 200mg Take 1 [facility] 200 mg 4-04 capsule by [facility] capsule 00:00: mouth 3 (three) Medical times Branch daily as needed for Cough. terbinafine 2022-0 Yes [id number] 250mg Take 1 [facility] HCL 250 mg 4-04 tablet by [facility] tablet 00:00: mouth [place] 00 daily. [facility] benzonatate 2022-0 Yes [id number] 200mg Take 1 [facility] 200 mg 4-04 capsule by [facility] capsule 00:00: mouth 3 (three) Medical times Branch daily as needed for Cough. terbinafine 3-0 3- No [id number] 250mg Take 1 [facility] HCL 250 mg 4-04 06-27 tablet by [facility] tablet 00:00: 00:00 mouth [place] 00 :00 daily. [facility] benzonatate 3-0 2023- No [id number] 200mg Take 1 [facility] 200 mg 4-04 06-27 capsule by [facility] capsule 00:00: 00:00 mouth 3 [place] 00 :00 (three) Medical times Branch daily as needed for Cough. terbinafine 3-0 2023- No [id number] 250mg Take 1 [facility] HCL 250 mg 4-04 06-27 tablet by [facility] tablet 00:00: 00:00 mouth [place] 00 :00 daily. [facility] benzonatate 3-0 2023- No [id number] 200mg Take 1 [facility] 200 mg 4-04 06-27 capsule by [facility] capsule 00:00: 00:00 mouth 3 [place] 00 :00 (three) Medical times Branch daily as needed for Cough. terbinafine 2022- No [id number] 250mg Take 1 [facility] HCL 250 mg 05-17 tablet by [facility] tablet 00:00: 00:00 mouth [place] 00 :00 daily. Medical [facility] benzonatate 2022- No [id number] 200mg Take 1 [facility] 200 mg 05-17 capsule by [facility] capsule 00:00: 00:00 mouth 3 [place] 00 :00 (three) Medical times Branch daily as needed for Cough. furosemide 2022- No [id number] 40mg Take 1 [facility] 40 mg -06-09 tablet by [facility] tablet 00:00: 00:00 mouth [place] 00 :00 daily. Medical [facility] furosemide 2022- No [id number] 40mg Take 1 [facility] 40 mg 05-17 tablet by [facility] tablet 00:00: 00:00 mouth [place] 00 :00 daily. [facility] furosemide 2022- No TAKE 1 [facility] ers 40 mg 3-27 -04 TABLET BY [facility] tablet 00:00: 00:00 MOUTH [place] 00 :00 TWICE Medical DAILY FOR Branch 5 DAYS THEN ONE TABLET DAILY furosemide 2022- No TAKE 1 [facility] ers 40 mg 3-27 - TABLET BY [facility] tablet 00:00: 00:00 MOUTH [place] 00 :00 TWICE Medical DAILY FOR Branch 5 DAYS THEN ONE TABLET DAILY losartan 25 Yes [id number] 25mg Take 1 [facility] mg tablet 3-13 tablet by [facility] o f 00:00: mouth [place] 00 daily. Medical Branch losartan 25 0 Yes [id number] 25mg Take 1 [facility] mg tablet 3-13 tablet by [facility] o f 00:00: mouth [place] 00 daily. [facility] Branch losartan 25 0 Yes [id number] 25mg Take 1 [facility] mg tablet 3-13 tablet by [facility] o f 00:00: mouth [place] 00 daily. [facility] losartan 25 0 Yes [id number] 25mg Take 1 [facility] mg tablet 3-13 tablet by [facility] o f 00:00: mouth [place] 00 daily. Medical Branch losartan 25 2023-0 Yes [id number] 25mg Take 1 [facility] mg tablet 3-13 tablet by [facility] o f 00:00: mouth 00 daily. Medical Branch losartan 25 2022-0 3- No [id number] 25mg Take 1 [facility] mg tablet 3-13 04-12 tablet by [facility] of 00:00: 00:00 mouth [place] 00 :00 daily. [facility] Branch losartan 25 2022-0 3- No [id number] 25mg Take 1 [facility] mg tablet 3-13 04-12 tablet by [facility] of 00:00: 00:00 mouth [place] 00 :00 daily. Medical Branch cefUROXime 2023-0 Yes [id number] 250mg Take 1 [facility] 250 mg 2-14 tablet by [facility] tablet 00:00: mouth (two) Medical times Branch daily. cefUROXime 2023-0 Yes [id number] 250mg Take 1 [facility] 250 mg 2-14 tablet by [facility] tablet 00:00: mouth (two) Medical times Branch daily. cefUROXime 2023-0 Yes [id number] 250mg Take 1 [facility] 250 mg 2-14 tablet by [facility] tablet 00:00: mouth (two) Medical times Branch daily. cefUROXime 2023-0 Yes [id number] 250mg Take 1 [facility] 250 mg 2-14 tablet by [facility] tablet 00:00: mouth (two) Medical times Branch daily. cefUROXime 2023-0 Yes [id number] 250mg Take 1 [facility] 250 mg 2-14 tablet by [facility] tablet 00:00: mouth (two) Medical times Branch daily. cefUROXime 2023-0 Yes [id number] 250mg Take 1 [facility] 250 mg 2-14 tablet by [facility] tablet 00:00: mouth (two) Medical times Branch daily. cefUROXime 2023-0 Yes [id number] 250mg Take 1 [facility] 250 mg 2-14 tablet by [facility] tablet 00:00: mouth (two) Medical times Branch daily. cefUROXime 2023-0 Yes [id number] 250mg Take 1 [facility] 250 mg 2-14 tablet by [facility] tablet 00:00: mouth (two) Medical times Branch daily. cefUROXime 2023-0 2023- No [id number] 250mg Take 1 [facility] 250 mg 2-14 04-04 tablet by [facility] tablet 00:00: 00:00 mouth 2 [place] 00 :00 (two) Medical times Branch daily. cefUROXime 2022-0 3- No [id number] 250mg Take 1 [facility] 250 mg 2-14 - tablet by [facility] tablet 00:00: 00:00 mouth 2 [place] 00 :00 (two) Medical times Branch daily. cefdinir 2022-0 Yes [id number] 300mg Take 1 [facility] [place] 300 mg 2-09 capsule by [facility] capsule 00:00: mouth [place] 00 every 12 Medical (twelve) Branch hours. cefdinir 2022-0 Yes [id number] 300mg Take 1 [facility] [place] 300 mg 2-09 capsule by [facility] capsule 00:00: mouth [place] 00 every 12 Medical (twelve) Branch hours. ferrous 2022-0 Yes [id number] 324mg Take 1 [facility] briana sulfate 324 1-31 tablet by [facility] of mg (65 mg 00:00: mouth [place] iron) EC 00 daily with Medic al tablet breakfast. Branch ferrous 2022-0 Yes [id number] 324mg Take 1 [facility] briana sulfate 324 1-31 tablet by [facility] of mg (65 mg 00:00: mouth [place] iron) EC 00 daily with Medic al tablet breakfast. Branch ferrous 2022-0 Yes [id number] 324mg Take 1 [facility] bri[place] sulfate 324 1-31 tablet by [facility] of mg (65 mg 00:00: mouth [place] iron) EC 00 daily with Medic al tablet breakfast. Branch ferrous 2022-0 Yes [id number] 324mg Take 1 [facility] briana sulfate 324 1-31 tablet by [facility] of mg (65 mg 00:00: mouth [place] iron) EC 00 daily with Medic al tablet breakfast. Branch ferrous 2022-0 Yes [id number] 324mg Take 1 [facility] bri[place] sulfate 324 1-31 tablet by [facility] of mg (65 mg 00:00: mouth [place] iron) EC 00 daily with Medic al tablet breakfast. Branch ferrous 2022-0 Yes [id number] 324mg Take 1 [facility] bri[place] sulfate 324 1-31 tablet by [facility] of mg (65 mg 00:00: mouth [place] iron) EC 00 daily with Medic al tablet breakfast. Branch ferrous 2022-0 Yes [id number] 324mg Take 1 [facility] bri[place] sulfate 324 1-31 tablet by [facility] of mg (65 mg 00:00: mouth [place] iron) EC 00 daily with Medic al tablet breakfast. Branch ferrous 3-0 Yes [id number] 324mg Take 1 [facility] bri[place] sulfate 324 1-31 tablet by [facility] of mg (65 mg 00:00: mouth [place] iron) EC 00 daily with Medic al tablet breakfast. Branch ferrous 3-0 Yes [id number] 324mg Take 1 [facility] briana sulfate 324 1-31 tablet by [facility] of mg (65 mg 00:00: mouth [place] iron) EC 00 daily with Medic al tablet breakfast. Branch ferrous 3-0 Yes [id number] 324mg Take 1 [facility] [place] sulfate 324 1-31 tablet by [facility] of mg (65 mg 00:00: mouth [place] iron) EC 00 daily with Medic al tablet breakfast. Branch ferrous 3-0 Yes [id number] 324mg Take 1 [facility] [place] sulfate 324 1-31 tablet by [facility] of mg (65 mg 00:00: mouth [place] iron) EC 00 daily with Medic al tablet breakfast. Branch ferrous 2022-0 Yes [id number] 324mg Take 1 [facility] [place] sulfate 324 1-31 tablet by [facility] of mg (65 mg 00:00: mouth [place] iron) EC 00 daily with Medic al tablet breakfast. Branch ferrous 2022-0 Yes [id number] 324mg Take 1 [facility] [place] sulfate 324 1-31 tablet by [facility] of mg (65 mg 00:00: mouth [place] iron) EC 00 daily with Medic al tablet breakfast. Branch ferrous 3-0 Yes [id number] 324mg Take 1 [facility] [place] sulfate 324 1-31 tablet by [facility] of mg (65 mg 00:00: mouth [place] iron) EC 00 daily with Medic al tablet breakfast. Branch ferrous 3-0 Yes [id number] 324mg Take 1 [facility] [place] sulfate 324 1-31 tablet by [facility] of mg (65 mg 00:00: mouth [place] iron) EC 00 daily with Medic al tablet breakfast. Branch ferrous 3-0 Yes [id number] 324mg Take 1 [facility] [place] sulfate 324 1-31 tablet by [facility] of mg (65 mg 00:00: mouth [place] iron) EC 00 daily with Medic al tablet breakfast. Branch ferrous 3-0 Yes [id number] 324mg Take 1 [facility] bri[place] sulfate 324 1-31 tablet by [facility] of mg (65 mg 00:00: mouth [place] iron) EC 00 daily with Medic al tablet breakfast. Branch ferrous 3-0 Yes [id number] 324mg Take 1 [facility] [place] sulfate 324 1-31 tablet by [facility] of mg (65 mg 00:00: mouth [place] iron) EC 00 daily with Medic al tablet breakfast. Branch ferrous 3-0 Yes [id number] 324mg Take 1 [facility] bri[place] sulfate 324 1-31 tablet by [facility] of mg (65 mg 00:00: mouth [place] iron) EC 00 daily with Medic al tablet breakfast. Branch ferrous 3-0 Yes [id number] 324mg Take 1 [facility] [place] sulfate 324 1-31 tablet by [facility] of mg (65 mg 00:00: mouth [place] iron) EC 00 daily with Medic al tablet breakfast. Branch ferrous 3-0 Yes [id number] 324mg Take 1 [facility] bri[place] sulfate 324 1-31 tablet by [facility] of mg (65 mg 00:00: mouth [place] iron) EC 00 daily with Medic al tablet breakfast. Branch ferrous 3-0 Yes [id number] 324mg Take 1 [facility] bri[place] sulfate 324 1-31 tablet by [facility] of mg (65 mg 00:00: mouth [place] iron) EC 00 daily with Medic al tablet breakfast. Branch ferrous 2022-0 Yes [id number] 324mg Take 1 [facility] bri[place] sulfate 324 1-31 tablet by [facility] of mg (65 mg 00:00: mouth [place] iron) EC 00 daily with Medic al tablet breakfast. Branch ferrous 3-0 Yes [id number] 324mg Take 1 [facility] bri[place] sulfate 324 1-31 tablet by [facility] of mg (65 mg 00:00: mouth [place] iron) EC 00 daily with Medic al tablet breakfast. Branch ferrous 3-0 Yes [id number] 324mg Take 1 [facility] bri[place] sulfate 324 1-31 tablet by [facility] of mg (65 mg 00:00: mouth [place] iron) EC 00 daily with Medic al tablet breakfast. Branch ferrous 3-0 Yes [id number] 324mg Take 1 [facility] [place] sulfate 324 1-31 tablet by [facility] of mg (65 mg 00:00: mouth [place] iron) EC 00 daily with Medic al tablet breakfast. Branch ferrous 3-0 Yes [id number] 324mg Take 1 [facility] bri[place] sulfate 324 1-31 tablet by [facility] of mg (65 mg 00:00: mouth [place] iron) EC 00 daily with Medic al tablet breakfast. Branch ferrous 3-0 Yes [id number] 324mg Take 1 [facility] bri[place] sulfate 324 1-31 tablet by [facility] of mg (65 mg 00:00: mouth [place] iron) EC 00 daily with Medic al tablet breakfast. Branch ferrous 3-0 Yes [id number] 324mg Take 1 [facility] bri[place] sulfate 324 1-31 tablet by [facility] of mg (65 mg 00:00: mouth [place] iron) EC 00 daily with Medic al tablet breakfast. Branch ferrous 3-0 Yes [id number] 324mg Take 1 [facility] bri[place] sulfate 324 1-31 tablet by [facility] of mg (65 mg 00:00: mouth [place] iron) EC 00 daily with Medic al tablet breakfast. Branch ferrous 3-0 Yes [id number] 324mg Take 1 [facility] bri[place] sulfate 324 1-31 tablet by [facility] of mg (65 mg 00:00: mouth [place] iron) EC 00 daily with Medic al tablet breakfast. Branch ferrous 3-0 Yes [id number] 324mg Take 1 [facility] bri[place] sulfate 324 1-31 tablet by [facility] of mg (65 mg 00:00: mouth [place] iron) EC 00 daily with Medic al tablet breakfast. Branch ferrous 3-0 Yes [id number] 324mg Take 1 [facility] [place] sulfate 324 1-31 tablet by [facility] of mg (65 mg 00:00: mouth [place] iron) EC 00 daily with Medic al tablet breakfast. Branch ferrous 3-0 Yes [id number] 324mg Take 1 [facility] bri[place] sulfate 324 1-31 tablet by [facility] of mg (65 mg 00:00: mouth [place] iron) EC 00 daily with Medic al tablet breakfast. Branch ferrous 3-0 Yes [id number] 324mg Take 1 [facility] [place] sulfate 324 1-31 tablet by [facility] of mg (65 mg 00:00: mouth [place] iron) EC 00 daily with Medic al tablet breakfast. Branch ferrous 3-0 Yes [id number] 324mg Take 1 [facility] briana sulfate 324 1-31 tablet by [facility] of mg (65 mg 00:00: mouth [place] iron) EC 00 daily with Medic al tablet breakfast. Branch ferrous 3-0 Yes [id number] 324mg Take 1 [facility] bri[place] sulfate 324 1-31 tablet by [facility] of mg (65 mg 00:00: mouth [place] iron) EC 00 daily with Medic al tablet breakfast. Branch ferrous 3-0 Yes [id number] 324mg Take 1 [facility] bri[place] sulfate 324 1-31 tablet by [facility] of mg (65 mg 00:00: mouth [place] iron) EC 00 daily with Medic al tablet breakfast. Branch ferrous 3-0 Yes [id number] 324mg Take 1 [facility] bri[place] sulfate 324 1-31 tablet by [facility] of mg (65 mg 00:00: mouth [place] iron) EC 00 daily with Medic al tablet breakfast. Branch ferrous 3-0 Yes [id number] 324mg Take 1 [facility] bri[place] sulfate 324 1-31 tablet by [facility] of mg (65 mg 00:00: mouth [place] iron) EC 00 daily with Medic al tablet breakfast. Branch ferrous 3-0 Yes [id number] 324mg Take 1 [facility] briana sulfate 324 1-31 tablet by [facility] of mg (65 mg 00:00: mouth [place] iron) EC 00 daily with Medic al tablet breakfast. Branch ferrous 3-0 Yes [id number] 324mg Take 1 [facility] [place] sulfate 324 1-31 tablet by [facility] of mg (65 mg 00:00: mouth [place] iron) EC 00 daily with Medic al tablet breakfast. Branch ferrous 3-0 Yes [id number] 324mg Take 1 [facility] [place] sulfate 324 1-31 tablet by [facility] of mg (65 mg 00:00: mouth [place] iron) EC 00 daily with Medic al tablet breakfast. Branch ferrous 3-0 Yes [id number] 324mg Take 1 [facility] briana sulfate 324 1-31 tablet by [facility] of mg (65 mg 00:00: mouth [place] iron) EC 00 daily with Medic al tablet breakfast. Branch ferrous 3-0 Yes [id number] 324mg Take 1 [facility] briana sulfate 324 1-31 tablet by [facility] of mg (65 mg 00:00: mouth [place] iron) EC 00 daily with Medic al tablet breakfast. Branch ferrous 3-0 Yes [id number] 324mg Take 1 [facility] briana sulfate 324 1-31 tablet by [facility] of mg (65 mg 00:00: mouth [place] iron) EC 00 daily with Medic al tablet breakfast. Branch ferrous 3-0 Yes [id number] 324mg Take 1 [facility] bri[place] sulfate 324 1-31 tablet by [facility] of mg (65 mg 00:00: mouth [place] iron) EC 00 daily with Medic al tablet breakfast. Branch ferrous 3-0 Yes [id number] 324mg Take 1 [facility] briana sulfate 324 1-31 tablet by [facility] of mg (65 mg 00:00: mouth [place] iron) EC 00 daily with Medic al tablet breakfast. Branch ferrous 3-0 Yes [id number] 324mg Take 1 [facility] briana sulfate 324 1-31 tablet by [facility] of mg (65 mg 00:00: mouth [place] iron) EC 00 daily with Medic al tablet breakfast. Branch ferrous 3-0 Yes [id number] 324mg Take 1 [facility] briana sulfate 324 1-31 tablet by [facility] of mg (65 mg 00:00: mouth [place] iron) EC 00 daily with Medic al tablet breakfast. Branch ferrous 3-0 Yes [id number] 324mg Take 1 [facility] briana sulfate 324 1-31 tablet by [facility] of mg (65 mg 00:00: mouth [place] iron) EC 00 daily with Medic al tablet breakfast. Branch ferrous 3-0 Yes [id number] 324mg Take 1 [facility] briana sulfate 324 1-31 tablet by [facility] of mg (65 mg 00:00: mouth [place] iron) EC 00 daily with Medic al tablet breakfast. Branch ferrous 3-0 Yes [id number] 324mg Take 1 [facility] briana sulfate 324 1-31 tablet by [facility] of mg (65 mg 00:00: mouth [place] iron) EC 00 daily with Medic al tablet breakfast. Branch ferrous 3-0 Yes [id number] 324mg Take 1 [facility] briana sulfate 324 1-31 tablet by it[facility] of mg (65 mg 00:00: mouth [place] iron) EC 00 daily with Medic al tablet breakfast. Branch ferrous 3-0 Yes [id number] 324mg Take 1 [facility] briana sulfate 324 1-31 tablet by [facility] of mg (65 mg 00:00: mouth [place] iron) EC 00 daily with Medic al tablet breakfast. Branch ferrous 3-0 Yes [id number] 324mg Take 1 [facility] briana sulfate 324 1-31 tablet by [facility]y of mg (65 mg 00:00: mouth [place] iron) EC 00 daily with Medic al tablet breakfast. Branch ferrous 3-0 Yes [id number] 324mg Take 1 [facility] briana sulfate 324 1-31 tablet by [facility] of mg (65 mg 00:00: mouth [place] iron) EC 00 daily with Medic al tablet breakfast. Branch ferrous 3-0 Yes [id number] 324mg Take 1 [facility] briana sulfate 324 1-31 tablet by [facility]y of mg (65 mg 00:00: mouth [place] iron) EC 00 daily with Medic al tablet breakfast. Branch ferrous 0 Yes [id number] 324mg Take 1 [facility] briana sulfate 324 1-31 tablet by [facility] of mg (65 mg 00:00: mouth [place] iron) EC 00 daily with Medic al tablet breakfast. Branch ferrous 0 3- No [id number] 324mg Take 1 U nivers sulfate 324 1-31 -27 tablet by it y of mg (65 mg 00:00: 00:00 mouth [place] iron) EC 00 :00 daily with Medic al tablet breakfast. Branch ferrous 2022- No [id number] 324mg Take 1 U nivers sulfate 324 1--27 tablet by it y of mg (65 mg 00:00: 00:00 mouth [place] iron) EC 00 :00 daily with Medic al tablet breakfast. Branch ferrous 2022- No [id number] 324mg Take 1 U nivers sulfate 324 1--27 tablet by it y of mg (65 mg 00:00: 00:00 mouth [place] iron) EC 00 :00 daily with Medic al tablet breakfast. Branch losartan 50 0 Yes [id number] 50mg Take 1 [facility] mg tablet 1-27 tablet by ity o f 00:00: mouth [place] 00 daily. Medical Branch furosemide 0 Yes [id number] 20mg Take 1 [facility] nivers 20 mg 1-27 tablet by [facility] of tablet 00:00: mouth [place] 00 daily. Medical Branch losartan 50 0 Yes [id number] 50mg Take 1 [facility] mg tablet 1-27 tablet by ity o f 00:00: mouth [place] 00 daily. Medical Branch furosemide 2022-0 Yes [id number] 20mg Take 1 [facility] nivers 20 mg 1-27 tablet by [facility]y of tablet 00:00: mouth [place] 00 daily. Medical Branch losartan 50 2022-0 Yes [id number] 50mg Take 1 [facility] mg tablet 1-27 tablet by ity o f 00:00: mouth [place] 00 daily. Medical Branch furosemide 2022-0 Yes [id number] 20mg Take 1 [facility] nivers 20 mg 1-27 tablet by [facility] of tablet 00:00: mouth [place] 00 daily. Medical Branch losartan 50 2022-0 Yes [id number] 50mg Take 1 [facility] mg tablet 1-27 tablet by ity o f 00:00: mouth [place] 00 daily. Medical Branch furosemide 2022-0 Yes [id number] 20mg Take 1 [facility] nivers 20 mg 1-27 tablet by [facility]y of tablet 00:00: mouth [place] 00 daily. Medical Branch losartan 50 2022-0 Yes [id number] 50mg Take 1 [facility] mg tablet 1-27 tablet by ity o f 00:00: mouth [place] 00 daily. Medical Branch furosemide 2022-0 Yes [id number] 20mg Take 1 [facility] nivers 20 mg 1-27 tablet by ity of tablet 00:00: mouth [place] 00 daily. Medical Branch losartan 50 2022-0 Yes [id number] 50mg Take 1 [facility] mg tablet 1-27 tablet by ity o f 00:00: mouth [place] 00 daily. Medical Branch furosemide 2022-0 Yes [id number] 20mg Take 1 [facility] nivers 20 mg 1-27 tablet by [facility]y of tablet 00:00: mouth [place] 00 daily. Medical Branch losartan 50 2022-0 Yes [id number] 50mg Take 1 [facility] mg tablet 1-27 tablet by ity o f 00:00: mouth [place] 00 daily. Medical Branch furosemide 2022-0 Yes [id number] 20mg Take 1 [facility] nivers 20 mg 1-27 tablet by [facility]y of tablet 00:00: mouth [place] 00 daily. Medical Branch losartan 50 2022-0 Yes [id number] 50mg Take 1 [facility] mg tablet 1-27 tablet by ity o f 00:00: mouth [place] 00 daily. Medical Branch furosemide 2022-0 Yes [id number] 20mg Take 1 [facility] nivers 20 mg 1-27 tablet by [facility]y of tablet 00:00: mouth [place] 00 daily. Medical Branch losartan 50 2022-0 Yes [id number] 50mg Take 1 [facility] mg tablet 1-27 tablet by ity o f 00:00: mouth [place] 00 daily. Medical Branch furosemide 2022-0 Yes [id number] 20mg Take 1 [facility] nivers 20 mg 1-27 tablet by [facility]y of tablet 00:00: mouth [place] 00 daily. Medical Branch losartan 50 2022-0 Yes [id number] 50mg Take 1 [facility] mg tablet 1-27 tablet by ity o f 00:00: mouth [place] 00 daily. Medical Branch furosemide 3-0 Yes [id number] 20mg Take 1 [facility] nivers 20 mg 1-27 tablet by [facility] of tablet 00:00: mouth [place] 00 daily. Medical Branch losartan 50 2022-0 Yes [id number] 50mg Take 1 [facility] mg tablet 1-27 tablet by ity o f 00:00: mouth [place] 00 daily. Medical Branch furosemide 3-0 Yes [id number] 20mg Take 1 [facility] nivers 20 mg 1-27 tablet by [facility] of tablet 00:00: mouth [place] 00 daily. Medical Branch losartan 50 2022-0 Yes [id number] 50mg Take 1 [facility] mg tablet 1-27 tablet by ity o f 00:00: mouth [place] 00 daily. Medical Branch furosemide 3-0 Yes [id number] 20mg Take 1 [facility] nivers 20 mg 1-27 tablet by ity of tablet 00:00: mouth [place] 00 daily. Medical Branch losartan 50 2022-0 Yes [id number] 50mg Take 1 [facility] mg tablet 1-27 tablet by ity o f 00:00: mouth [place] 00 daily. Medical Branch furosemide 3-0 Yes [id number] 20mg Take 1 [facility] nivers 20 mg 1-27 tablet by [facility] of tablet 00:00: mouth [place] 00 daily. Medical Branch losartan 50 2022-0 Yes [id number] 50mg Take 1 [facility] mg tablet 1-27 tablet by ity o f 00:00: mouth [place] 00 daily. Medical Branch furosemide 2022-0 Yes [id number] 20mg Take 1 [facility] nivers 20 mg 1-27 tablet by [facility] of tablet 00:00: mouth [place] 00 daily. Medical Branch losartan 50 2022-0 Yes [id number] 50mg Take 1 [facility] mg tablet 1-27 tablet by ity o f 00:00: mouth [place] 00 daily. Medical Branch furosemide 2023-0 Yes [id number] 20mg Take 1 [facility] nivers 20 mg 1-27 tablet by [facility] of tablet 00:00: mouth [place] 00 daily. Medical Branch losartan 50 2022-0 Yes [id number] 50mg Take 1 [facility] mg tablet 1-27 tablet by ity o f 00:00: mouth [place] 00 daily. Medical Branch furosemide 3-0 Yes [id number] 20mg Take 1 [facility] nivers 20 mg 1-27 tablet by [facility] of tablet 00:00: mouth [place] 00 daily. Medical Branch furosemide 2023-0 Yes [id number] 20mg Take 1 [facility] nivers 20 mg 1-27 tablet by [facility] of tablet 00:00: mouth [place] 00 daily. Medical Branch furosemide 2023-0 Yes [id number] 20mg Take 1 [facility] nivers 20 mg 1-27 tablet by [facility] of tablet 00:00: mouth [place] 00 daily. Medical Branch furosemide Yes [id number] 20mg Take 1 [facility] nivers 20 mg 03-11 tablet by [facility] of tablet 00:00: mouth [place] 00 daily. Medical Branch furosemide 2022- No [id number] 20mg Take 1 [facility] 20 mg 03-11- tablet by ity of tablet 00:00: 00:00 mouth [place] 00 :00 daily. Medical Branch furosemide 2022- No [id number] 20mg Take 1 [facility] 20 mg 03-11- tablet by ity of tablet 00:00: 00:00 mouth [place] 00 :00 daily. Medical Branch losartan 50 2022- No [id number] 50mg Take 1 [facility] mg tablet 03-1113 tablet by [facility]y of 00:00: 00:00 mouth [place] 00 :00 daily. Medical Branch carvediloL 2021-02 Yes [id number] 6.25mg Take 1 [facility] 6.25 mg 2-09 tablet by [facility] of tablet 00:00: mouth 2 [place] 00 (two) Medical times Branch daily with meals. atorvastati 2021-02 Yes [id number] 20mg Take 1 [facility] n 20 mg 2-09 tablet by [facility] of tablet 00:00: mouth at [place] 00 bedtime. Medical Branch omeprazole 2021-02 Yes [id number] 1{tbl} Take 1 [facility] 20 mg TbLD 2-09 tablet by ity of 00:00: mouth [place] 00 daily. Medical Branch tolterodine 2021-02 Yes [id number] 2mg Take 1 [facility] [place] 2 mg 24 2-09 capsule by ity of hr capsule 00:00: mouth [place] 00 daily. Medical Branch carvediloL 2021-02 Yes [id number] 6.25mg Take 1 [facility] 6.25 mg 2-09 tablet by ity of tablet 00:00: mouth 2 [place] 00 (two) Medical times Branch daily with meals. atorvastati 2021-02 Yes [id number] 20mg Take 1 [facility] n 20 mg 2-09 tablet by [facility] of tablet 00:00: mouth at [place] 00 bedtime. Medical Branch omeprazole 2021-02 Yes [id number] 1{tbl} Take 1 [facility] 20 mg TbLD 2-09 tablet by ity of 00:00: mouth [place] 00 daily. Medical Branch tolterodine 2021-02 Yes [id number] 2mg Take 1 [facility] [place] 2 mg 24 2-09 capsule by [facility]y of hr capsule 00:00: mouth [place] 00 daily. Medical Branch carvediloL 2021-02 Yes [id number] 6.25mg Take 1 [facility] 6.25 mg 2-09 tablet by [facility]y of tablet 00:00: mouth 2 (two) Medical times Branch daily with meals. atorvastati 2021-02 Yes [id number] 20mg Take 1 [facility] n 20 mg 2-09 tablet by [facility] of tablet 00:00: mouth at [place] 00 bedtime. Medical Branch omeprazole 2021-02 Yes [id number] 1{tbl} Take 1 [facility] 20 mg TbLD 2-09 tablet by ity of 00:00: mouth [place] 00 daily. Medical Branch tolterodine 2021-02 Yes [id number] 2mg Take 1 [facility] [place] 2 mg 24 2-09 capsule by [facility]y of hr capsule 00:00: mouth [place] 00 daily. Medical Branch carvediloL 2021-02 Yes [id number] 6.25mg Take 1 [facility] 6.25 mg 2-09 tablet by [facility]y of tablet 00:00: mouth 2 (two) Medical times Branch daily with meals. atorvastati 2021-02 Yes [id number] 20mg Take 1 [facility] n 20 mg 2-09 tablet by [facility] of tablet 00:00: mouth at [place] 00 bedtime. Medical Branch omeprazole 2021-02 Yes [id number] 1{tbl} Take 1 [facility] 20 mg TbLD 2-09 tablet by ity of 00:00: mouth [place] 00 daily. Medical Branch tolterodine 2021-02 Yes [id number] 2mg Take 1 [facility] [place] 2 mg 24 2-09 capsule by [facility] of hr capsule 00:00: mouth [place] 00 daily. Medical Branch carvediloL 2021-02 Yes [id number] 6.25mg Take 1 [facility] 6.25 mg 2-09 tablet by [facility]y of tablet 00:00: mouth 2 00 (two) Medical times Branch daily with meals. atorvastati 2021-02 Yes [id number] 20mg Take 1 [facility] n 20 mg 2-09 tablet by [facility] of tablet 00:00: mouth at [place] 00 bedtime. Medical Branch omeprazole 2021-02 Yes [id number] 1{tbl} Take 1 [facility] 20 mg TbLD 2-09 tablet by ity of 00:00: mouth [place] 00 daily. Medical Branch tolterodine 2021-02 Yes [id number] 2mg Take 1 [facility] [place] 2 mg 24 2-09 capsule by [facility] of hr capsule 00:00: mouth [place] 00 daily. Medical Branch carvediloL 2021-02 Yes [id number] 6.25mg Take 1 [facility] 6.25 mg 2-09 tablet by [facility]y of tablet 00:00: mouth 2 (two) Medical times [facility] daily with meals. atorvastati 2021-02 Yes [id number] 20mg Take 1 [facility] 20 mg 2-09 tablet by [facility] tablet 00:00: mouth at [place] 00 bedtime. [facility] omeprazole 2021-02 Yes [id number] 1{tbl} Take 1 [facility] 20 mg TbLD 2-09 tablet by [facility] 00:00: mouth [place] 00 daily. [facility] tolterodine 2021-02 Yes [id number] 2mg Take 1 [facility] [place] [facility] 24 2-09 capsule by [facility] capsule 00:00: mouth [place] 00 daily. [facility] carvediloL 2021-02 Yes [id number] 6.25mg Take 1 [facility] 6.25 mg 2-09 tablet by [facility] tablet 00:00: mouth (two) [facility] times [facility] daily with meals. atorvastati 2021-02 Yes [id number] 20mg Take 1 [facility] 20 mg 2-09 tablet by [facility] tablet 00:00: mouth at [place] 00 bedtime. [facility] omeprazole 2021-02 Yes [id number] 1{tbl} Take 1 [facility] 20 mg TbLD 2-09 tablet by [facility] 00:00: mouth [place] 00 daily. [facility] tolterodine 2021-02 Yes [id number] 2mg Take 1 [facility] [place] 2 mg 24 2-09 capsule by [facility] capsule 00:00: mouth [place] 00 daily. [facility] carvediloL 2021-02 Yes [id number] 6.25mg Take 1 [facility] 6.25 mg 2-09 tablet by [facility] tablet 00:00: mouth 2 00 (two) [facility] times [facility] daily with meals. atorvastati 2021-02 Yes [id number] 20mg Take 1 [facility] 20 mg 2-09 tablet by [facility] tablet 00:00: mouth at [place] 00 bedtime. [facility] omeprazole 2021-02 Yes [id number] 1{tbl} Take 1 [facility] 20 mg TbLD 2-09 tablet by [facility] 00:00: mouth [place] 00 daily. [facility] tolterodine 2021-02 Yes [id number] 2mg Take 1 [facility] [place] 2 mg 24 2-09 capsule by [facility] capsule 00:00: mouth [place] 00 daily. [facility] carvediloL 2021-02 Yes [id number] 6.25mg Take 1 [facility] 6.25 mg 2-09 tablet by [facility] tablet 00:00: mouth 2 (two) [facility] times [facility] daily with meals. atorvastati 2021-02 Yes [id number] 20mg Take 1 [facility] 20 mg 2-09 tablet by [facility] tablet 00:00: mouth at [place] 00 bedtime. [facility] omeprazole 2021-02 Yes [id number] 1{tbl} Take 1 [facility] 20 mg TbLD 2-09 tablet by [facility] 00:00: mouth [place] 00 daily. [facility] tolterodine 2021-02 Yes [id number] 2mg Take 1 [facility] 2 mg 24 2-09 capsule by [facility] capsule 00:00: mouth [place] 00 daily. [facility] carvediloL 2021-02 Yes [id number] 6.25mg Take 1 [facility] 6.25 mg 2-09 tablet by [facility] tablet 00:00: mouth (two) [facility] times [facility] daily with meals. atorvastati 2021-02 Yes [id number] 20mg Take 1 [facility] 20 mg 2-09 tablet by [facility] tablet 00:00: mouth at [place] 00 bedtime. [facility] omeprazole 2021-02 Yes [id number] 1{tbl} Take 1 [facility] 20 mg TbLD 2-09 tablet by [facility] 00:00: mouth [place] 00 daily. [facility] tolterodine 2021-02 Yes [id number] 2mg Take 1 [facility] 2 mg 24 2-09 capsule by [facility] capsule 00:00: mouth [place] 00 daily. [facility] carvediloL 2021-02 Yes [id number] 6.25mg Take 1 [facility] 6.25 mg 2-09 tablet by [facility] tablet 00:00: mouth 2 (two) [facility] times [facility] daily with meals. atorvastati 2021-02 Yes [id number] 20mg Take 1 [facility] 20 mg 2-09 tablet by [facility] tablet 00:00: mouth at [place] 00 bedtime. [facility] omeprazole 2021-02 Yes [id number] 1{tbl} Take 1 [facility] 20 mg TbLD 2-09 tablet by [facility] 00:00: mouth [place] 00 daily. [facility] tolterodine 2021-02 Yes [id number] 2mg Take 1 [facility] 2 mg 24 2-09 capsule by [facility] capsule 00:00: mouth [place] 00 daily. [facility] carvediloL 2021-02 Yes [id number] 6.25mg Take 1 [facility] 6.25 mg 2-09 tablet by [facility] tablet 00:00: mouth 2 00 (two) [facility] times [facility] daily with meals. atorvastati 2021-02 Yes [id number] 20mg Take 1 [facility] 20 mg 2-09 tablet by [facility] tablet 00:00: mouth at [place] 00 bedtime. [facility] omeprazole 2021-02 Yes [id number] 1{tbl} Take 1 [facility] 20 mg TbLD 2-09 tablet by [facility] 00:00: mouth [place] 00 daily. [facility] tolterodine 2021-02 Yes [id number] 2mg Take 1 [facility] 2 mg 24 2-09 capsule by [facility] capsule 00:00: mouth [place] 00 daily. [facility] carvediloL 2021-02 Yes [id number] 6.25mg Take 1 [facility] 6.25 mg 2-09 tablet by [facility] tablet 00:00: mouth 2 [place] 00 (two) [facility] times [facility] daily with meals. atorvastati 2021-02 Yes [id number] 20mg Take 1 [facility] 20 mg 2-09 tablet by [facility] tablet 00:00: mouth at [place] 00 bedtime. [facility] omeprazole 2021-02 Yes [id number] 1{tbl} Take 1 [facility] 20 mg TbLD 2-09 tablet by [facility] 00:00: mouth [place] 00 daily. [facility] tolterodine 2021-02 Yes [id number] 2mg Take 1 [facility] [place] 2 mg 24 2-09 capsule by [facility] capsule 00:00: mouth [place] 00 daily. [facility] carvediloL 2021-02 Yes [id number] 6.25mg Take 1 [facility] 6.25 mg 2-09 tablet by [facility] tablet 00:00: mouth 2 (two) [facility] times [facility] daily with meals. atorvastati 2021-02 Yes [id number] 20mg Take 1 [facility] 20 mg 2-09 tablet by [facility] tablet 00:00: mouth at [place] 00 bedtime. [facility] omeprazole 2021-02 Yes [id number] 1{tbl} Take 1 [facility] 20 mg TbLD 2-09 tablet by [facility] 00:00: mouth [place] 00 daily. [facility] tolterodine 2021-02 Yes [id number] 2mg Take 1 [facility] [place] 2 mg 24 2-09 capsule by [facility] capsule 00:00: mouth [place] 00 daily. [facility] carvediloL 2021-02 Yes [id number] 6.25mg Take 1 [facility] 6.25 mg 2-09 tablet by [facility] tablet 00:00: mouth 2 (two) [facility] times [facility] daily with meals. atorvastati 2021-02 Yes [id number] 20mg Take 1 [facility] 20 mg 2-09 tablet by [facility] tablet 00:00: mouth at [place] 00 bedtime. [facility] omeprazole 2021-02 Yes [id number] 1{tbl} Take 1 [facility] 20 mg TbLD 2-09 tablet by [facility] 00:00: mouth [place] 00 daily. [facility] tolterodine 2021-02 Yes [id number] 2mg Take 1 [facility] 2 mg 24 2-09 capsule by [facility] capsule 00:00: mouth [place] 00 daily. [facility] carvediloL 2021-02 Yes [id number] 6.25mg Take 1 [facility] 6.25 mg 2-09 tablet by [facility] tablet 00:00: mouth (two) [facility] times [facility] daily with meals. atorvastati 2021-02 Yes [id number] 20mg Take 1 [facility] 20 mg 2-09 tablet by [facility] tablet 00:00: mouth at [place] 00 bedtime. [facility] omeprazole 2021-02 Yes [id number] 1{tbl} Take 1 [facility] 20 mg TbLD 2-09 tablet by [facility] 00:00: mouth [place] 00 daily. [facility] tolterodine 2021-02 Yes [id number] 2mg Take 1 [facility] 2 mg 24 2-09 capsule by [facility] capsule 00:00: mouth [place] 00 daily. [facility] carvediloL 2021-02 Yes [id number] 6.25mg Take 1 [facility] 6.25 mg 2-09 tablet by [facility] tablet 00:00: mouth 2 (two) [facility] times [facility] daily with meals. atorvastati 2021-02 Yes [id number] 20mg Take 1 [facility] 20 mg 2-09 tablet by [facility] tablet 00:00: mouth at [place] 00 bedtime. [facility] omeprazole 2021-02 Yes [id number] 1{tbl} Take 1 [facility] 20 mg TbLD 2-09 tablet by [facility] 00:00: mouth [place] 00 daily. [facility] tolterodine 2021-02 Yes [id number] 2mg Take 1 [facility] 2 mg 24 2-09 capsule by [facility] capsule 00:00: mouth [place] 00 daily. [facility] carvediloL 2021-02 Yes [id number] 6.25mg Take 1 [facility] 6.25 mg 2-09 tablet by [facility] tablet 00:00: mouth 2 00 (two) [facility] times [facility] daily with meals. atorvastati 2021-02 Yes [id number] 20mg Take 1 [facility] 20 mg 2-09 tablet by [facility] tablet 00:00: mouth at [place] 00 bedtime. [facility] tolterodine 2021-02 Yes [id number] 2mg Take 1 [facility] 2 mg 24 2-09 capsule by [facility] hr capsule 00:00: mouth [place] 00 daily. [facility] carvediloL 2021-02 Yes [id number] 6.25mg Take 1 [facility] 6.25 mg 2-09 tablet by [facility] tablet 00:00: mouth 2 00 (two) [facility] times [facility] daily with meals. atorvastati 2021-02 Yes [id number] 20mg Take 1 [facility] 20 mg 2-09 tablet by [facility] tablet 00:00: mouth at [place] 00 bedtime. [facility] tolterodine 2021-02 Yes [id number] 2mg Take 1 [facility] 2 mg 24 2-09 capsule by [facility] capsule 00:00: mouth [place] 00 daily. [facility] carvediloL 2021-02 Yes [id number] 6.25mg Take 1 [facility] 6.25 mg 2-09 tablet by [facility] tablet 00:00: mouth 2 00 (two) [facility] times [facility] daily with meals. atorvastati 2021-02 Yes [id number] 20mg Take 1 [facility] 20 mg 2-09 tablet by [facility] tablet 00:00: mouth at [place] 00 bedtime. [facility] tolterodine 2021-02 Yes [id number] 2mg Take 1 [facility] 2 mg 24 2-09 capsule by [facility] capsule 00:00: mouth [place] 00 daily. [facility] carvediloL 2021-02 Yes [id number] 6.25mg Take 1 [facility] 6.25 mg 2-09 tablet by [facility] tablet 00:00: mouth 2 (two) [facility] times [facility] daily with meals. atorvastati 2021-02 Yes [id number] 20mg Take 1 [facility] 20 mg 2-09 tablet by [facility] tablet 00:00: mouth at [place] 00 bedtime. [facility] tolterodine 2021-02 Yes [id number] 2mg Take 1 [facility] 2 mg 24 2-09 capsule by [facility] capsule 00:00: mouth 00 daily. [facility] carvediloL 2021-02 Yes [id number] 6.25mg Take 1 [facility] 6.25 mg 2-09 tablet by [facility] tablet 00:00: mouth 2 (two) [facility] times [facility] daily with meals. atorvastati 2021-02 Yes [id number] 20mg Take 1 [facility] 20 mg 2-09 tablet by [facility] tablet 00:00: mouth at [place] 00 bedtime. [facility] tolterodine 2021-02 Yes [id number] 2mg Take 1 [facility] 2 mg 24 2-09 capsule by [facility] hr capsule 00:00: mouth 00 daily. [facility] carvediloL 2021-02 Yes [id number] 6.25mg Take 1 [facility] 6.25 mg 2-09 tablet by [facility] tablet 00:00: mouth 2 (two) [facility] times [facility] daily with meals. atorvastati 2021-02 Yes [id number] 20mg Take 1 [facility] 20 mg 2-09 tablet by [facility] tablet 00:00: mouth at [place] 00 bedtime. [facility] tolterodine 2021-02 Yes [id number] 2mg Take 1 [facility] 2 mg 24 2-09 capsule by [facility] hr capsule 00:00: mouth [place] 00 daily. [facility] carvediloL 2021-02 Yes [id number] 6.25mg Take 1 [facility] 6.25 mg 2-09 tablet by [facility] tablet 00:00: mouth 2 (two) [facility] times [facility] daily with meals. atorvastati 2021-02 Yes [id number] 20mg Take 1 [facility] 20 mg 2-09 tablet by [facility] tablet 00:00: mouth at [place] 00 bedtime. [facility] tolterodine 2021-02 Yes [id number] 2mg Take 1 [facility] 2 mg 24 2-09 capsule by [facility] hr capsule 00:00: mouth 00 daily. [facility] carvediloL 2021-02 Yes [id number] 6.25mg Take 1 [facility] 6.25 mg 2-09 tablet by [facility] tablet 00:00: mouth 2 (two) [facility] times [facility] daily with meals. atorvastati 2021-02 Yes [id number] 20mg Take 1 [facility] 20 mg 2-09 tablet by [facility] tablet 00:00: mouth at [place] 00 bedtime. [facility] tolterodine 2021-02 Yes [id number] 2mg Take 1 [facility] 2 mg 24 2-09 capsule by [facility] capsule 00:00: mouth 00 daily. [facility] carvediloL 2021-02 Yes [id number] 6.25mg Take 1 [facility] 6.25 mg 2-09 tablet by [facility] tablet 00:00: mouth 2 (two) [facility] times [facility] daily with meals. atorvastati 2021-02 Yes [id number] 20mg Take 1 [facility] 20 mg 2-09 tablet by [facility] tablet 00:00: mouth at [place] 00 bedtime. [facility] tolterodine 2021-02 Yes [id number] 2mg Take 1 [facility] 2 mg 24 2-09 capsule by [facility] hr capsule 00:00: mouth 00 daily. [facility] carvediloL 2021-02 Yes [id number] 6.25mg Take 1 [facility] 6.25 mg 2-09 tablet by [facility] tablet 00:00: mouth 2 (two) [facility] times [facility] daily with meals. atorvastati 2021-02 Yes [id number] 20mg Take 1 [facility] 20 mg 2-09 tablet by [facility] tablet 00:00: mouth at [place] 00 bedtime. [facility] tolterodine 2021-02 Yes [id number] 2mg Take 1 [facility] 2 mg 24 2-09 capsule by [facility] hr capsule 00:00: mouth 00 daily. [facility] carvediloL 2021-02 Yes [id number] 6.25mg Take 1 [facility] 6.25 mg 2-09 tablet by [facility] tablet 00:00: mouth 2 (two) [facility] times [facility] daily with meals. atorvastati 2021-02 Yes [id number] 20mg Take 1 [facility] 20 mg 2-09 tablet by [facility] tablet 00:00: mouth at [place] 00 bedtime. [facility] tolterodine 2021-02 Yes [id number] 2mg Take 1 [facility] 2 mg 24 2-09 capsule by [facility] hr capsule 00:00: mouth [place] 00 daily. [facility] carvediloL 2021-02 Yes [id number] 6.25mg Take 1 [facility] 6.25 mg 2-09 tablet by [facility] tablet 00:00: mouth 2 (two) [facility] times [facility] daily with meals. atorvastati 2021-02 Yes [id number] 20mg Take 1 [facility] 20 mg 2-09 tablet by [facility] tablet 00:00: mouth at [place] 00 bedtime. [facility] tolterodine 2021-02 Yes [id number] 2mg Take 1 [facility] 2 mg 24 2-09 capsule by [facility] hr capsule 00:00: mouth 00 daily. [facility] carvediloL 2021-02 Yes [id number] 6.25mg Take 1 [facility] 6.25 mg 2-09 tablet by [facility] tablet 00:00: mouth 2 (two) [facility] times [facility] daily with meals. atorvastati 2021-02 Yes [id number] 20mg Take 1 [facility] 20 mg 2-09 tablet by [facility] tablet 00:00: mouth at [place] 00 bedtime. [facility] tolterodine 2021-02 Yes [id number] 2mg Take 1 [facility] 2 mg 24 2-09 capsule by [facility] hr capsule 00:00: mouth 00 daily. [facility] carvediloL 2021-02 Yes [id number] 6.25mg Take 1 [facility] 6.25 mg 2-09 tablet by [facility] tablet 00:00: mouth 2 00 (two) [facility] times [facility] daily with meals. atorvastati 2021-02 Yes [id number] 20mg Take 1 [facility] 20 mg 2-09 tablet by [facility] tablet 00:00: mouth at [place] 00 bedtime. [facility] tolterodine 2021-02 Yes [id number] 2mg Take 1 [facility] 2 mg 24 2-09 capsule by [facility] hr capsule 00:00: mouth [place] 00 daily. [facility] carvediloL 2021-02 Yes [id number] 6.25mg Take 1 [facility] 6.25 mg 2-09 tablet by [facility] tablet 00:00: mouth 2 (two) [facility] times [facility] daily with meals. atorvastati 2021-02 Yes [id number] 20mg Take 1 [facility] 20 mg 2-09 tablet by [facility] tablet 00:00: mouth at [place] 00 bedtime. [facility] tolterodine 2021-02 Yes [id number] 2mg Take 1 [facility] 2 mg 24 2-09 capsule by [facility] hr capsule 00:00: mouth [place] 00 daily. [facility] carvediloL 2021-02 Yes [id number] 6.25mg Take 1 [facility] 6.25 mg 2-09 tablet by [facility] tablet 00:00: mouth 2 (two) [facility] times [facility] daily with meals. atorvastati 2021-02 Yes [id number] 20mg Take 1 [facility] 20 mg 2-09 tablet by [facility] tablet 00:00: mouth at [place] 00 bedtime. [facility] tolterodine 2021-02 Yes [id number] 2mg Take 1 [facility] 2 mg 24 2-09 capsule by [facility] capsule 00:00: mouth 00 daily. [facility] carvediloL 2021-02 Yes [id number] 6.25mg Take 1 [facility] 6.25 mg 2-09 tablet by [facility] tablet 00:00: mouth 2 (two) [facility] times [facility] daily with meals. atorvastati 2021-02 Yes [id number] 20mg Take 1 [facility] 20 mg 2-09 tablet by [facility] tablet 00:00: mouth at [place] 00 bedtime. [facility] tolterodine 2021-02 Yes [id number] 2mg Take 1 [facility] 2 mg 24 2-09 capsule by [facility] hr capsule 00:00: mouth 00 daily. [facility] carvediloL 2021-02 Yes [id number] 6.25mg Take 1 [facility] 6.25 mg 2-09 tablet by [facility] tablet 00:00: mouth 2 00 (two) [facility] times [facility] daily with meals. atorvastati 2021-02 Yes [id number] 20mg Take 1 [facility] 20 mg 2-09 tablet by [facility] tablet 00:00: mouth at [place] 00 bedtime. [facility] tolterodine 2021-02 Yes [id number] 2mg Take 1 [facility] 2 mg 24 2-09 capsule by [facility] hr capsule 00:00: mouth 00 daily. [facility] carvediloL 2021-02 Yes [id number] 6.25mg Take 1 [facility] 6.25 mg 2-09 tablet by [facility] tablet 00:00: mouth 2 (two) [facility] times [facility] daily with meals. atorvastati 2021-02 Yes [id number] 20mg Take 1 [facility] 20 mg 2-09 tablet by [facility] tablet 00:00: mouth at [place] 00 bedtime. [facility] tolterodine 2021-02 Yes [id number] 2mg Take 1 [facility] 2 mg 24 2-09 capsule by [facility] hr capsule 00:00: mouth 00 daily. [facility] carvediloL 2021-02 Yes [id number] 6.25mg Take 1 [facility] 6.25 mg 2-09 tablet by [facility] tablet 00:00: mouth (two) [facility] times [facility] daily with meals. atorvastati 2021-02 Yes [id number] 20mg Take 1 [facility] 20 mg 2-09 tablet by [facility] tablet 00:00: mouth at [place] 00 bedtime. [facility] tolterodine 2021-02 Yes [id number] 2mg Take 1 [facility] 2 mg 24 2-09 capsule by [facility] hr capsule 00:00: mouth 00 daily. [facility] carvediloL 2021-02 Yes [id number] 6.25mg Take 1 [facility] 6.25 mg 2-09 tablet by [facility] tablet 00:00: mouth 2 (two) [facility] times [facility] daily with meals. tolterodine 2021-02 Yes [id number] 2mg Take 1 [facility] 2 mg 24 2-09 capsule by [facility] capsule 00:00: mouth 00 daily. [facility] carvediloL 2021-02 Yes [id number] 6.25mg Take 1 [facility] 6.25 mg 2-09 tablet by [facility] tablet 00:00: mouth 2 (two) [facility] times [facility] daily with meals. tolterodine 2021-02 Yes [id number] 2mg Take 1 [facility] 2 mg 24 2-09 capsule by [facility] hr capsule 00:00: mouth [place] 00 daily. [facility] carvediloL 2021-02 Yes [id number] 6.25mg Take 1 [facility] 6.25 mg 2-09 tablet by [facility] tablet 00:00: mouth (two) [facility] times [facility] daily with meals. tolterodine 2021-02 Yes [id number] 2mg Take 1 [facility] 2 mg 24 2-09 capsule by [facility] hr capsule 00:00: mouth [place] 00 daily. [facility] carvediloL 2021-02 Yes [id number] 6.25mg Take 1 [facility] 6.25 mg 2-09 tablet by [facility] tablet 00:00: mouth 2 (two) [facility] times [facility] daily with meals. tolterodine 2021-02 Yes [id number] 2mg Take 1 [facility] 2 mg 24 2-09 capsule by [facility] hr capsule 00:00: mouth [place] 00 daily. [facility] carvediloL 2021-02 Yes [id number] 6.25mg Take 1 [facility] 6.25 mg 2-09 tablet by [facility] tablet 00:00: mouth (two) [facility] times [facility] daily with meals. tolterodine 2021-02 Yes [id number] 2mg Take 1 [facility] 2 mg 24 2-09 capsule by [facility] hr capsule 00:00: mouth 00 daily. [facility] carvediloL 2021-02 Yes [id number] 6.25mg Take 1 [facility] 6.25 mg 2-09 tablet by [facility] tablet 00:00: mouth (two) [facility] times [facility] daily with meals. tolterodine 2021-02 Yes [id number] 2mg Take 1 [facility] 2 mg 24 2-09 capsule by [facility] hr capsule 00:00: mouth [place] 00 daily. [facility] carvediloL 2021-02 Yes [id number] 6.25mg Take 1 [facility] 6.25 mg 2-09 tablet by [facility] tablet 00:00: mouth (two) [facility] times [facility] daily with meals. tolterodine 2021-02 Yes [id number] 2mg Take 1 [facility] 2 mg 24 2-09 capsule by [facility] hr capsule 00:00: mouth [place] 00 daily. [facility] carvediloL 2021-02 Yes [id number] 6.25mg Take 1 [facility] 6.25 mg 2-09 tablet by [facility] tablet 00:00: mouth 2 00 (two) [facility] times [facility] daily with meals. tolterodine 2021-02 Yes [id number] 2mg Take 1 [facility] 2 mg 24 2-09 capsule by [facility] hr capsule 00:00: mouth 00 daily. [facility] carvediloL 2021-02 Yes [id number] 6.25mg Take 1 [facility] 6.25 mg 2-09 tablet by [facility] tablet 00:00: mouth (two) [facility] times [facility] daily with meals. tolterodine 2021-02 Yes [id number] 2mg Take 1 [facility] 2 mg 24 2-09 capsule by [facility] capsule 00:00: mouth 00 daily. [facility] carvediloL 2021-02 Yes [id number] 6.25mg Take 1 [facility] 6.25 mg 2-09 tablet by [facility] tablet 00:00: mouth (two) [facility] times [facility] daily with meals. tolterodine 2021-02 Yes [id number] 2mg Take 1 [facility] 2 mg 24 2-09 capsule by [facility] hr capsule 00:00: mouth 00 daily. [facility] carvediloL 2021-02 Yes [id number] 6.25mg Take 1 [facility] 6.25 mg 2-09 tablet by [facility] tablet 00:00: mouth (two) [facility] times [facility] daily with meals. tolterodine 2021-02 Yes [id number] 2mg Take 1 [facility] 2 mg 24 2-09 capsule by [facility] capsule 00:00: mouth 00 daily. [facility] carvediloL 2021-02 Yes [id number] 6.25mg Take 1 [facility] 6.25 mg 2-09 tablet by [facility] tablet 00:00: mouth (two) [facility] times [facility] daily with meals. tolterodine 2021-02 Yes [id number] 2mg Take 1 [facility] 2 mg 24 2-09 capsule by [facility] capsule 00:00: mouth 00 daily. [facility] carvediloL 2021-02 Yes [id number] 6.25mg Take 1 [facility] 6.25 mg 2-09 tablet by [facility] tablet 00:00: mouth (two) [facility] times [facility] daily with meals. tolterodine 2021-02 Yes [id number] 2mg Take 1 [facility] 2 mg 24 2-09 capsule by [facility] capsule 00:00: mouth 00 daily. [facility] carvediloL 2021-02 Yes [id number] 6.25mg Take 1 [facility] 6.25 mg 2-09 tablet by [facility] tablet 00:00: mouth (two) [facility] times [facility] daily with meals. tolterodine 2021-02 Yes [id number] 2mg Take 1 [facility] 2 mg 24 2-09 capsule by [facility] capsule 00:00: mouth 00 daily. [facility] carvediloL 2021-02 Yes [id number] 6.25mg Take 1 [facility] 6.25 mg 2-09 tablet by [facility] tablet 00:00: mouth (two) [facility] times [facility] daily with meals. tolterodine 2021-02 Yes [id number] 2mg Take 1 [facility] 2 mg 24 2-09 capsule by [facility] capsule 00:00: mouth 00 daily. [facility] carvediloL 2021-02 Yes [id number] 6.25mg Take 1 [facility] 6.25 mg 2-09 tablet by [facility] tablet 00:00: mouth (two) [facility] times [facility] daily with meals. tolterodine 2021-02 Yes [id number] 2mg Take 1 [facility] 2 mg 24 2-09 capsule by [facility] hr capsule 00:00: mouth 00 daily. [facility] carvediloL 2021-02 Yes [id number] 6.25mg Take 1 [facility] 6.25 mg 2-09 tablet by [facility] tablet 00:00: mouth (two) [facility] times [facility] daily with meals. tolterodine 2021-02 Yes [id number] 2mg Take 1 [facility] 2 mg 24 2-09 capsule by [facility] hr capsule 00:00: mouth [place] 00 daily. [facility] carvediloL 2021-02 Yes [id number] 6.25mg Take 1 [facility] 6.25 mg 2-09 tablet by [facility] tablet 00:00: mouth (two) [facility] times [facility] daily with meals. tolterodine 2021-02 Yes [id number] 2mg Take 1 [facility] 2 mg 24 2-09 capsule by [facility] hr capsule 00:00: mouth [place] 00 daily. [facility] carvediloL 2021-02 Yes [id number] 6.25mg Take 1 [facility] 6.25 mg 2-09 tablet by [facility] tablet 00:00: mouth 2 00 (two) [facility] times [facility] daily with meals. tolterodine 2021-02 Yes [id number] 2mg Take 1 [facility] 2 mg 24 2-09 capsule by [facility] hr capsule 00:00: mouth 00 daily. [facility] carvediloL 2021-02 Yes [id number] 6.25mg Take 1 [facility] 6.25 mg 2-09 tablet by [facility] tablet 00:00: mouth (two) [facility] times [facility] daily with meals. tolterodine 2021-02 Yes [id number] 2mg Take 1 [facility] 2 mg 24 2-09 capsule by [facility] capsule 00:00: mouth 00 daily. [facility] carvediloL 2021-02 Yes [id number] 6.25mg Take 1 [facility] 6.25 mg 2-09 tablet by [facility] tablet 00:00: mouth (two) [facility] times [facility] daily with meals. tolterodine 2021-02 Yes [id number] 2mg Take 1 [facility] 2 mg 24 2-09 capsule by [facility] hr capsule 00:00: mouth 00 daily. [facility] carvediloL 2021-02 Yes [id number] 6.25mg Take 1 [facility] 6.25 mg 2-09 tablet by [facility] tablet 00:00: mouth (two) [facility] times [facility] daily with meals. tolterodine 2021-02 Yes [id number] 2mg Take 1 [facility] 2 mg 24 2-09 capsule by [facility] hr capsule 00:00: mouth 00 daily. [facility] carvediloL 2021-02 Yes [id number] 6.25mg Take 1 [facility] 6.25 mg 2-09 tablet by [facility] tablet 00:00: mouth (two) [facility] times [facility] daily with meals. tolterodine 2021-02 Yes [id number] 2mg Take 1 [facility] 2 mg 24 2-09 capsule by [facility] hr capsule 00:00: mouth 00 daily. [facility] carvediloL 2021-02 Yes [id number] 6.25mg Take 1 [facility] 6.25 mg 2-09 tablet by [facility] tablet 00:00: mouth 2 (two) [facility] times [facility] daily with meals. tolterodine 2021-02 Yes [id number] 2mg Take 1 [facility] 2 mg 24 2-09 capsule by [facility] hr capsule 00:00: mouth [place] 00 daily. [facility] carvediloL 2021-02 Yes [id number] 6.25mg Take 1 [facility] 6.25 mg 2-09 tablet by [facility] tablet 00:00: mouth (two) [facility] times [facility] daily with meals. tolterodine 2021-02 Yes [id number] 2mg Take 1 [facility] 2 mg 24 2-09 capsule by [facility] hr capsule 00:00: mouth [place] 00 daily. [facility] carvediloL 2021-02 Yes [id number] 6.25mg Take 1 [facility] 6.25 mg 2-09 tablet by [facility] tablet 00:00: mouth 2 (two) [facility] times [facility] daily with meals. tolterodine 2021-02 Yes [id number] 2mg Take 1 [facility] 2 mg 24 2-09 capsule by [facility] hr capsule 00:00: mouth 00 daily. [facility] carvediloL 2021-02 Yes [id number] 6.25mg Take 1 [facility] 6.25 mg 2-09 tablet by [facility] tablet 00:00: mouth (two) [facility] times [facility] daily with meals. tolterodine 2021-02 Yes [id number] 2mg Take 1 [facility] 2 mg 24 2-09 capsule by [facility] hr capsule 00:00: mouth 00 daily. [facility] carvediloL 2021-02 Yes [id number] 6.25mg Take 1 [facility] 6.25 mg 2-09 tablet by [facility] tablet 00:00: mouth (two) [facility] times [facility] daily with meals. tolterodine 2021-02 Yes [id number] 2mg Take 1 [facility] 2 mg 24 2-09 capsule by [facility] hr capsule 00:00: mouth [place] 00 daily. [facility] carvediloL 2021-02 Yes [id number] 6.25mg Take 1 [facility] 6.25 mg 2-09 tablet by [facility] tablet 00:00: mouth 2 (two) [facility] times [facility] daily with meals. tolterodine 2021-02 Yes [id number] 2mg Take 1 [facility] 2 mg 24 2-09 capsule by [facility] hr capsule 00:00: mouth [place] 00 daily. [facility] carvediloL 2021-02 Yes [id number] 6.25mg Take 1 [facility] 6.25 mg 2-09 tablet by [facility] tablet 00:00: mouth 2 00 (two) [facility] times [facility] daily with meals. tolterodine 2021-02 Yes [id number] 2mg Take 1 [facility] 2 mg 24 2-09 capsule by [facility] hr capsule 00:00: mouth 00 daily. [facility] carvediloL 2021-02 Yes [id number] 6.25mg Take 1 [facility] 6.25 mg 2-09 tablet by [facility] tablet 00:00: mouth (two) [facility] times [facility] daily with meals. tolterodine 2021-02 Yes [id number] 2mg Take 1 [facility] 24 2-09 capsule by [facility] capsule 00:00: mouth [place] 00 daily. [facility] carvediloL 2021-02 Yes [id number] 6.25mg Take 1 [facility] 6.25 mg 2-09 tablet by [facility] tablet 00:00: mouth (two) Medical times Branch daily with meals. tolterodine 2021-02 Yes [id number] 2mg Take 1 [facility] 2 mg 24 2-09 capsule by [facility] capsule 00:00: mouth 00 daily. [facility] carvediloL 2021-02 Yes [id number] 6.25mg Take 1 [facility] 6.25 mg 2-09 tablet by [facility] tablet 00:00: mouth (two) Medical times Branch daily with meals. tolterodine 2021-02 Yes [id number] 2mg Take 1 [facility] 2 mg 24 2-09 capsule by [facility] capsule 00:00: mouth 00 daily. [facility] carvediloL 2021-02 Yes [id number] 6.25mg Take 1 [facility] 6.25 mg 2-09 tablet by [facility] tablet 00:00: mouth (two) Medical times Branch daily with meals. tolterodine 2021-02 Yes [id number] 2mg Take 1 [facility] 2 mg 24 2-09 capsule by [facility] capsule 00:00: mouth 00 daily. [facility] carvediloL 2021-02 Yes [id number] 6.25mg Take 1 [facility] 6.25 mg 2-09 tablet by [facility] tablet 00:00: mouth 2 (two) Medical times Branch daily with meals. tolterodine 2021-02 Yes [id number] 2mg Take 1 [facility] 2 mg 24 2-09 capsule by [facility] capsule 00:00: mouth [place] 00 daily. [facility] carvediloL 2021-02 Yes [id number] 6.25mg Take 1 [facility] 6.25 mg 2-09 tablet by [facility] tablet 00:00: mouth 2 00 (two) Medical times Branch daily with meals. tolterodine 2021-02 Yes [id number] 2mg Take 1 [facility] 2 mg 24 2-09 capsule by [facility] capsule 00:00: mouth [place] 00 daily. [facility] carvediloL 2021-02 Yes [id number] 6.25mg Take 1 [facility] 6.25 mg 2-09 tablet by [facility] tablet 00:00: mouth 2 00 (two) Medical times Branch daily with meals. tolterodine 2021-02 Yes [id number] 2mg Take 1 [facility] 2 mg 24 2-09 capsule by [facility] capsule 00:00: mouth [place] 00 daily. [facility] tolterodine 2021-02 Yes [id number] 2mg Take 1 [facility] 2 mg 24 2-09 capsule by [facility] capsule 00:00: mouth [place] 00 daily. [facility] tolterodine 2021-02 Yes [id number] 2mg Take 1 [facility] 2 mg 24 2-09 capsule by [facility] capsule 00:00: mouth [place] 00 daily. [facility] tolterodine 2021-02 Yes [id number] 2mg Take 1 [facility] 2 mg 24 2-09 capsule by [facility] capsule 00:00: mouth [place] 00 daily. [facility] tolterodine 2021-02 Yes [id number] 2mg Take 1 [facility] 2 mg 24 2-09 capsule by [facility] capsule 00:00: mouth [place] 00 daily. [facility] tolterodine 2021-02 Yes [id number] 2mg Take 1 [facility] 2 mg 24 2-09 capsule by [facility] capsule 00:00: mouth [place] 00 daily. [facility] tolterodine 2021-02 Yes [id number] 2mg Take 1 [facility] 2 mg 24 2-09 capsule by [facility] capsule 00:00: mouth [place] 00 daily. [facility] tolterodine 2021-02 Yes [id number] 2mg Take 1 [facility] 2 mg 24 2-09 capsule by [facility] capsule 00:00: mouth [place] 00 daily. [facility] tolterodine 2021-02 Yes [id number] 2mg Take 1 [facility] 2 mg 24 2-09 capsule by [facility] capsule 00:00: mouth [place] 00 daily. [facility] tolterodine 2021-02 Yes [id number] 2mg Take 1 [facility] 2 mg 24 2-09 capsule by [facility] capsule 00:00: mouth [place] 00 daily. [facility] tolterodine 2021-02 Yes [id number] 2mg Take 1 [facility] 2 mg 24 2-09 capsule by [facility] capsule 00:00: mouth [place] 00 daily. [facility] tolterodine 2021-02 Yes [id number] 2mg Take 1 [facility] 2 mg 24 2-09 capsule by [facility] capsule 00:00: mouth [place] 00 daily. [facility] tolterodine 2021-02 Yes [id number] 2mg Take 1 [facility] 2 mg 24 2-09 capsule by [facility] capsule 00:00: mouth [place] 00 daily. [facility] tolterodine 2021-02 Yes [id number] 2mg Take 1 [facility] 2 mg 24 2-09 capsule by [facility] capsule 00:00: mouth [place] 00 daily. [facility] tolterodine 2021-02 Yes [id number] 2mg Take 1 [facility] 2 mg 24 2-09 capsule by [facility] capsule 00:00: mouth [place] 00 daily. [facility] tolterodine 2021-02 Yes [id number] 2mg Take 1 [facility] 2 mg 24 2-09 capsule by [facility] capsule 00:00: mouth [place] 00 daily. [facility] tolterodine 2021-02 Yes [id number] 2mg Take 1 [facility] 2 mg 24 2-09 capsule by [facility] capsule 00:00: mouth [place] 00 daily. [facility] tolterodine 2021-02 Yes [id number] 2mg Take 1 [facility] 2 mg 24 2-09 capsule by [facility] capsule 00:00: mouth [place] 00 daily. [facility] tolterodine 2021-02 Yes [id number] 2mg Take 1 [facility] 2 mg 24 2-09 capsule by [facility] capsule 00:00: mouth [place] 00 daily. [facility] tolterodine 2021-02 Yes [id number] 2mg Take 1 [facility] 2 mg 24 2-09 capsule by [facility] capsule 00:00: mouth [place] 00 daily. [facility] tolterodine 2021-02 Yes [id number] 2mg Take 1 [facility] 2 mg 24 2-09 capsule by [facility] capsule 00:00: mouth [place] 00 daily. [facility] tolterodine 2021-02 Yes [id number] 2mg Take 1 [facility] 2 mg 24 2-09 capsule by [facility] capsule 00:00: mouth [place] 00 daily. [facility] tolterodine 2021-02 Yes [id number] 2mg Take 1 [facility] 2 mg 24 2-09 capsule by [facility] capsule 00:00: mouth [place] 00 daily. [facility] tolterodine 2021-02 Yes [id number] 2mg Take 1 [facility] 2 mg 24 2-09 capsule by [facility] capsule 00:00: mouth [place] 00 daily. [facility] tolterodine 2021-02 Yes [id number] 2mg Take 1 [facility] 2 mg 24 2-09 capsule by [facility] capsule 00:00: mouth [place] 00 daily. [facility] tolterodine 2021-02 Yes [id number] 2mg Take 1 [facility] 2 mg 24 2-09 capsule by [facility] capsule 00:00: mouth [place] 00 daily. [facility] tolterodine 2021-02 Yes [id number] 2mg Take 1 [facility] 2 mg 24 2-09 capsule by [facility] capsule 00:00: mouth [place] 00 daily. [facility] tolterodine 2021-02 Yes [id number] 2mg Take 1 [facility] 2 mg 24 2-09 capsule by [facility] capsule 00:00: mouth [place] 00 daily. [facility] carvediloL 2021-02- No [id number] 6.25mg Take 1 [facility] 6.25 mg 03-24- tablet by [facility] tablet 00:00: 00:00 mouth 2 [place] 00 :00 (two) Medical times Branch daily with meals. carvediloL 2021-02- No [id number] 6.25mg Take 1 [facility] 6.25 mg 03-24- tablet by [facility] tablet 00:00: 00:00 mouth 2 [place] 00 :00 (two) Medical times Branch daily with meals. carvediloL 2021-02- No [id number] 6.25mg Take 1 [facility] 6.25 mg 2- tablet by [facility] of tablet 00:00: 00:00 mouth 2 [place] 00 :00 (two) Medical times Branch daily with meals. atorvastati 2021-02- No [id number] 20mg Take 1 [facility] 20 mg 03-24 tablet by [facility] tablet 00:00: 00:00 mouth at [place] 00 :00 bedtime. [facility] Branch atorvastati 2021-02- No [id number] 20mg Take 1 [facility] 20 mg 03-24 tablet by [facility] tablet 00:00: 00:00 mouth at [place] 00 :00 bedtime. [facility] Branch atorvastati 2021-02- No [id number] 20mg Take 1 [facility] 20 mg 03-24 tablet by [facility] of tablet 00:00: 00:00 mouth at [place] 00 :00 bedtime. [facility] carvediloL 2021-02 Yes [id number] 12.5mg Take 1 [facility] 12.5 mg -11 tablet by [facility] of tablet 00:00: mouth 2 [place] 00 (two) Medical times Branch daily with meals. Additional refills per cardio carvediloL 2021-02 Yes [id number] 12.5mg Take 1 [facility] 12.5 mg -11 tablet by [facility] of tablet 00:00: mouth 2 [place] 00 (two) Medical times Branch daily with meals. Additional refills per cardio carvediloL 2021-02- No [id number] 12.5mg Take 1 [facility] 12.5 mg -11 - tablet by [facility] of tablet 00:00: 00:00 mouth 2 [place] 00 :00 (two) Medical times Branch daily with meals. Additional refills per cardio carvediloL 2021-02- No [id number] 12.5mg Take 1 [facility] 12.5 mg -11 [...] mouth once [place] 00 daily with [facility] Branch METFORMIN 2021-02 Yes Take 1 [facility] 500 mg 24 1-09 tablet by it[facility] o f hr tablet 00:00: mouth once [place] 00 daily with Medical breakfast Branch METFORMIN 2021-02 Yes Take 1 [facility] 500 mg 24 1-09 tablet by [facility] o f hr tablet 00:00: mouth once [place] 00 daily with [facility] breakfast Branch METFORMIN 2021-02 Yes Take 1 [facility] 500 mg 24 1-09 tablet by [facility] o f hr tablet 00:00: mouth once [place] 00 daily with [facility] breakfast Branch METFORMIN 2021-02 Yes Take 1 [facility] 500 mg 24 1-09 tablet by [facility] o f hr tablet 00:00: mouth once [place] 00 daily with [facility] Branch METFORMIN 2021-02 Yes Take 1 [facility] 500 mg 24 1-09 tablet by [facility] o f hr tablet 00:00: mouth once [place] 00 daily with [facility] Branch METFORMIN 2021-02 Yes Take 1 [facility] 500 mg 24 1-09 tablet by [facility] o f hr tablet 00:00: mouth once [place] 00 daily with [facility] breakfast Branch METFORMIN 2021-02 Yes Take 1 [facility] 500 mg 24 1-09 tablet by [facility] o f hr tablet 00:00: mouth once [place] 00 daily with [facility] breakfast Branch METFORMIN 2021-02 Yes Take 1 [facility] 500 mg 24 1-09 tablet by [facility] o f hr tablet 00:00: mouth once [place] 00 daily with [facility] breakfast Branch METFORMIN 2021-02 Yes Take 1 [facility] 500 mg 24 1-09 tablet by [facility] o f hr tablet 00:00: mouth once [place] 00 daily with [facility] breakfast Branch METFORMIN 2021-02 Yes Take 1 [facility] 500 mg 24 1-09 tablet by [facility] o f hr tablet 00:00: mouth once [place] 00 daily with Medical breakfast Branch METFORMIN 2021-02 Yes Take 1 [facility] 500 mg 24 1-09 tablet by [facility] o f hr tablet 00:00: mouth once [place] 00 daily with [facility] breakfast Branch METFORMIN 2021-02 Yes Take [...] mouth once [place] 00 daily with [facility] breakfast Branch METFORMIN 2021-02 Yes Take 1 [facility] 500 mg 24 1-09 tablet by [facility] o f hr tablet 00:00: mouth once [place] 00 daily with [facility] breakfast Branch METFORMIN 2021-02 Yes Take 1 [facility] 500 mg 24 1-09 tablet by [facility] o f hr tablet 00:00: mouth once [place] 00 daily with Medical breakfast Branch METFORMIN 2021-02 Yes Take 1 [facility] 500 mg 24 1-09 tablet by [facility] o f hr tablet 00:00: mouth once [place] 00 daily with [facility] breakfast Branch METFORMIN 2021-02 Yes Take 1 [facility] 500 mg 24 1-09 tablet by [facility] o f hr tablet 00:00: mouth once [place] 00 daily with Medical breakfast Branch METFORMIN 2021-02 Yes Take 1 [facility] 500 mg 24 1-09 tablet by [facility] o f hr tablet 00:00: mouth once [place] 00 daily with [facility] breakfast Branch METFORMIN 2021-02 Yes Take 1 [facility] 500 mg 24 1-09 tablet by [facility] o f hr tablet 00:00: mouth once [place] 00 daily with [facility] breakfast Branch METFORMIN 2021-02 Yes Take [...] mouth once [place] 00 daily with [facility] Branch METFORMIN 2021-02 Yes Take 1 [facility] 500 mg 24 1-09 tablet by [facility] o f hr tablet 00:00: mouth once [place] 00 daily with [facility] Branch METFORMIN 2021-02 Yes Take 1 [facility] 500 mg 24 1-09 tablet by [facility] o f hr tablet 00:00: mouth once [place] 00 daily with Medical breakfast Branch METFORMIN 2021-02 Yes Take 1 [facility] 500 mg 24 1-09 tablet by [facility] o f hr tablet 00:00: mouth once [place] 00 daily with [facility] breakfast Branch METFORMIN 2021-02 Yes Take 1 [facility] 500 mg 24 1-09 tablet by [facility] o f hr tablet 00:00: mouth once [place] 00 daily with [facility] breakfast Branch METFORMIN 2021-02 Yes Take 1 [facility] 500 mg 24 1-09 tablet by [facility] o f hr tablet 00:00: mouth once [place] 00 daily with [facility] Branch METFORMIN 2021-02 Yes Take 1 [facility] 500 mg 24 1-09 tablet by [facility]y o f hr tablet 00:00: mouth once [place] 00 daily with [facility] Branch METFORMIN 2021-02 Yes Take 1 [facility] 500 mg 24 1-09 tablet by [facility]y o f hr tablet 00:00: mouth once [place] 00 daily with [facility] breakfast Branch METFORMIN 2021-02 Yes Take 1 [facility] 500 mg 24 1-09 tablet by [facility] o f hr tablet 00:00: mouth once [place] 00 daily with [facility] breakfast Branch METFORMIN 2021-02 Yes Take 1 [facility] 500 mg 24 1-09 tablet by [facility] o f hr tablet 00:00: mouth once [place] 00 daily with [facility] breakfast Branch METFORMIN 2021-02 Yes Take 1 [facility] 500 mg 24 1-09 tablet by [facility] o f hr tablet 00:00: mouth once [place] 00 daily with [facility] breakfast Branch METFORMIN 2021-02 Yes Take 1 [facility] 500 mg 24 1-09 tablet by [facility] o f hr tablet 00:00: mouth once [place] 00 daily with Medical breakfast Branch METFORMIN 2021-02 Yes Take 1 [facility] 500 mg 24 1-09 tablet by [facility] o f hr tablet 00:00: mouth once [place] 00 daily with [facility] breakfast Branch METFORMIN 2021-02 Yes Take [...] mouth once [place] 00 daily with [facility] breakfast Branch METFORMIN 2021-02 Yes Take 1 [facility] 500 mg 24 1-09 tablet by [facility] o f hr tablet 00:00: mouth once [place] 00 daily with [facility] breakfast Branch METFORMIN 2021-02 Yes Take 1 [facility] 500 mg 24 1-09 tablet by [facility] o f hr tablet 00:00: mouth once [place] 00 daily with Medical breakfast Branch METFORMIN 2021-02 Yes Take 1 [facility] 500 mg 24 1-09 tablet by [facility] o f hr tablet 00:00: mouth once [place] 00 daily with [facility] breakfast Branch METFORMIN 2021-02 Yes Take 1 [facility] 500 mg 24 1-09 tablet by [facility] o f hr tablet 00:00: mouth once [place] 00 daily with Medical breakfast Branch METFORMIN 2021-02 Yes Take 1 [facility] 500 mg 24 1-09 tablet by [facility] o f hr tablet 00:00: mouth once [place] 00 daily with [facility] breakfast Branch METFORMIN 2021-02 Yes Take 1 [facility] 500 mg 24 1-09 tablet by [facility]y o f hr tablet 00:00: mouth once [place] 00 daily with [facility] breakfast Branch METFORMIN 2021-02 Yes Take [...] mouth once [place] 00 daily with [facility] Branch METFORMIN 2021-02 Yes Take 1 [facility] 500 mg 24 1-09 tablet by [facility] o f hr tablet 00:00: mouth once [place] 00 daily with [facility] Branch METFORMIN 2021-02 Yes Take 1 [facility] 500 mg 24 1-09 tablet by [facility]y o f hr tablet 00:00: mouth once [place] 00 daily with Medical breakfast Branch METFORMIN 2021-02 Yes Take 1 [facility] 500 mg 24 1-09 tablet by [facility] o f hr tablet 00:00: mouth once [place] 00 daily with [facility] breakfast Branch METFORMIN 2021-02 Yes Take 1 [facility] 500 mg 24 1-09 tablet by [facility] o f hr tablet 00:00: mouth once [place] 00 daily with [facility] breakfast Branch METFORMIN 2021-02 Yes Take 1 [facility] 500 mg 24 1-09 tablet by [facility] o f hr tablet 00:00: mouth once [place] 00 daily with [facility] Branch METFORMIN 2021-02 Yes Take 1 [facility] 500 mg 24 1-09 tablet by [facility]y o f hr tablet 00:00: mouth once [place] 00 daily with [facility] Branch METFORMIN 2021-02 Yes Take 1 [facility] 500 mg 24 1-09 tablet by [facility] o f hr tablet 00:00: mouth once [place] 00 daily with [facility] breakfast Branch METFORMIN 2021-02 Yes Take 1 [facility] 500 mg 24 1-09 tablet by [facility]y o f hr tablet 00:00: mouth once [place] 00 daily with [facility] breakfast Branch METFORMIN 2021-02 Yes Take 1 [facility] 500 mg 24 1-09 tablet by [facility]y o f hr tablet 00:00: mouth once [place] 00 daily with [facility] breakfast Branch METFORMIN 2021-02 Yes Take 1 [facility] 500 mg 24 1-09 tablet by [facility]y o f hr tablet 00:00: mouth once [place] 00 daily with [facility] breakfast Branch METFORMIN 2021-02 Yes Take 1 [facility] 500 mg 24 1-09 tablet by [facility]y o f hr tablet 00:00: mouth once [place] 00 daily with Medical breakfast Branch METFORMIN 2021-02 Yes Take 1 [facility] 500 mg 24 1-09 tablet by [facility]y o f hr tablet 00:00: mouth once [place] 00 daily with [facility] breakfast Branch METFORMIN 2021-02 Yes Take [...] mouth once [place] 00 daily with [facility] breakfast Branch METFORMIN 2021-02 Yes Take 1 [facility] 500 mg 24 1-09 tablet by [facility]y o f hr tablet 00:00: mouth once [place] 00 daily with [facility] breakfast Branch METFORMIN 2021-02 Yes Take 1 [facility] 500 mg 24 1-09 tablet by [facility]y o f hr tablet 00:00: mouth once [place] 00 daily with Medical breakfast Branch METFORMIN 2021-02 Yes Take 1 [facility] 500 mg 24 1-09 tablet by [facility]y o f hr tablet 00:00: mouth once [place] 00 daily with [facility] breakfast Branch METFORMIN 2021-02 Yes Take 1 [facility] 500 mg 24 1-09 tablet by [facility]y o f hr tablet 00:00: mouth once [place] 00 daily with Medical breakfast Branch METFORMIN 2021-02 Yes Take 1 [facility] 500 mg 24 1-09 tablet by [facility]y o f hr tablet 00:00: mouth once [place] 00 daily with [facility] breakfast Branch METFORMIN 2021-02 Yes Take 1 [facility] 500 mg 24 1-09 tablet by [facility]y o f hr tablet 00:00: mouth once [place] 00 daily with [facility] breakfast Branch METFORMIN 2021-02 Yes Take [...] mouth once [place] 00 daily with [facility] Branch METFORMIN 2021-02 Yes Take 1 [facility] 500 mg 24 1-09 tablet by ity o f hr tablet 00:00: mouth once [place] 00 daily with [facility] Branch METFORMIN 2021-02 Yes Take 1 [facility] 500 mg 24 1-09 tablet by [facility]y o f hr tablet 00:00: mouth once [place] 00 daily with Medical breakfast Branch METFORMIN 2021-02 Yes Take 1 [facility] 500 mg 24 1-09 tablet by [facility]y o f hr tablet 00:00: mouth once [place] 00 daily with [facility] breakfast Branch METFORMIN 2021-02 Yes Take 1 [facility] 500 mg 24 1-09 tablet by [facility]y o f hr tablet 00:00: mouth once [place] 00 daily with [facility] breakfast Branch METFORMIN 2021-02 Yes Take 1 [facility] 500 mg 24 1-09 tablet by [facility]y o f hr tablet 00:00: mouth once [place] 00 daily with [facility] Branch METFORMIN 2021-02 Yes Take 1 [facility] 500 mg 24 1-09 tablet by ity o f hr tablet 00:00: mouth once [place] 00 daily with [facility] Branch METFORMIN 2021-02 Yes Take 1 [facility] 500 mg 24 1-09 tablet by ity o f hr tablet 00:00: mouth once [place] 00 daily with [facility] breakfast Branch METFORMIN 2021-02 Yes Take 1 [facility] 500 mg 24 1-09 tablet by [facility]y o f hr tablet 00:00: mouth once [place] 00 daily with [facility] breakfast Branch METFORMIN 2021-02 Yes Take 1 [facility] 500 mg 24 1-09 tablet by [facility]y o f hr tablet 00:00: mouth once [place] 00 daily with [facility] breakfast Branch METFORMIN 2021-02 Yes Take 1 [facility] 500 mg 24 1-09 tablet by [facility]y o f hr tablet 00:00: mouth once [place] 00 daily with [facility] breakfast Branch METFORMIN 2021-02 Yes Take 1 [facility] 500 mg 24 1-09 tablet by [facility]y o f hr tablet 00:00: mouth once [place] 00 daily with Medical breakfast Branch METFORMIN 2021-02 Yes Take 1 [facility] 500 mg 24 1-09 tablet by [facility]y o f hr tablet 00:00: mouth once [place] 00 daily with [facility] breakfast Branch METFORMIN 2021-02 Yes Take [...] Take 1 [facility] 500 mg 24 - tablet by [facility]y o f hr tablet 00:00: mouth once [place] 00 daily with Medical breakfast Branch METFORMIN 2021-02 Yes Take 1 [facility] 500 mg 24 - tablet by [facility]y o f hr tablet 00:00: mouth once [place] 00 daily with Medical breakfast Branch METFORMIN 2021-02 Yes Take 1 [facility] 500 mg 24 - tablet by [facility]y o f hr tablet 00:00: mouth once [place] 00 daily with Medical breakfast Branch METFORMIN 2021-02 Yes Take 1 [facility] 500 mg 24 - tablet by [facility]y o f hr tablet 00:00: mouth once [place] 00 daily with Medical breakfast Branch METFORMIN 2021-02 Yes Take 1 [facility] 500 mg 24 - tablet by [facility] o f hr tablet 00:00: mouth once [place] 00 daily with Medical breakfast Branch METFORMIN 2021-02 Yes Take 1 [facility] 500 mg 24 - tablet by [facility]y o f hr tablet 00:00: mouth once [place] 00 daily with Medical breakfast Branch METFORMIN 2021-02 Yes Take 1 [facility] 500 mg 24 - tablet by [facility]y o f hr tablet 00:00: mouth once [place] 00 daily with Medical breakfast Branch METFORMIN 2021-02 Yes Take 1 [facility] 500 mg 24 - tablet by [facility]y o f hr tablet 00:00: mouth once [place] 00 daily with Medical breakfast Branch METFORMIN 2021-02- No Take 1 [facility] 500 mg 24 02-21 tablet by [facility]y of hr tablet 00:00: 00:00 mouth once [place] 00 :00 daily with Medical breakfast Branch METFORMIN 2021-02- No Take 1 [facility] 500 mg 24 02-21 tablet by ity of hr tablet 00:00: 00:00 mouth once [place] 00 :00 daily with Medical [facility] Branch spironolact 2021-02- No 25mg Take 25 mg [facility] one 25 mg 0-21 10-21 by mouth ity o f tablet 14:33: 00:00 daily. [place] 53 :00 Medical Branch spironolact 2021-02- No 25mg Take 25 mg [facility] one 25 mg 0-21 10-21 by mouth ity o f tablet 14:33: 00:00 daily. [place] 53 :00 Medical Branch benzonatate 2021-02 Yes [id number] 200mg Take 1 [facility] 200 mg 0-21 capsule by [facility]y of capsule 00:00: mouth 3 [place] 00 (three) Medical times Branch daily as needed for Cough. atorvastati 2021-02 Yes [id number] 40mg Take 1 [facility] n 40 mg 0-21 tablet by [facility]y of tablet 00:00: mouth at [place] 00 bedtime. Medical Branch losartan 25 2021-02 Yes [id number] 25mg Take 1 [facility] mg tablet 0-21 tablet by ity o f 00:00: mouth at [place] 00 bedtime. Medical Branch furosemide 2021-02 Yes [id number] 20mg Take 1 [facility] 20 mg 0-21 tablet by [facility]y of tablet 00:00: mouth [place] 00 daily. Medical Branch spironolact 2021-02 Yes [id number] 25mg Take 1 [facility] one 25 mg 0-21 tablet by ity o f tablet 00:00: mouth [place] 00 daily. Medical Branch benzonatate 2021-02 Yes [id number] 200mg Take 1 [facility] 200 mg 0-21 capsule by ity of capsule 00:00: mouth 3 [place] 00 (three) Medical times Branch daily as needed for Cough. atorvastati 2021-02 Yes [id number] 40mg Take 1 [facility] n 40 mg 0-21 tablet by ity of tablet 00:00: mouth at [place] 00 bedtime. Medical Branch losartan 25 2021-02 Yes [id number] 25mg Take 1 [facility] mg tablet 0-21 tablet by ity o f 00:00: mouth at [place] 00 bedtime. Medical Branch furosemide 2021-02 Yes [id number] 20mg Take 1 [facility]ivers 20 mg 0-21 tablet by ity of tablet 00:00: mouth [place] 00 daily. Medical Branch spironolact 2021-02 Yes [id number] 25mg Take 1 [facility] one 25 mg 0-21 tablet by ity o f tablet 00:00: mouth [place] 00 daily. Medical Branch benzonatate 2021-02 Yes [id number] 200mg Take 1 [facility] 200 mg 0-21 capsule by ity of capsule 00:00: mouth 3 [place] 00 (three) Medical times Branch daily as needed for Cough. atorvastati 2021-02 Yes [id number] 40mg Take 1 [facility] n 40 mg 0-21 tablet by ity of tablet 00:00: mouth at [place] 00 bedtime. Medical Branch losartan 25 2021-02 Yes [id number] 25mg Take 1 [facility] mg tablet 0-21 tablet by ity o f 00:00: mouth at [place] 00 bedtime. Medical Branch furosemide 2021-02 Yes [id number] 20mg Take 1 [facility] 20 mg 0-21 tablet by ity of tablet 00:00: mouth [place] 00 daily. Medical Branch spironolact 2021-02 Yes [id number] 25mg Take 1 [facility] one 25 mg 0-21 tablet by ity o f tablet 00:00: mouth [place] 00 daily. Medical Branch benzonatate 2021-02 Yes [id number] 200mg Take 1 [facility] 200 mg 0-21 capsule by ity of capsule 00:00: mouth 3 [place] 00 (three) Medical times Branch daily as needed for Cough. atorvastati 2021-02 Yes [id number] 40mg Take 1 [facility] n 40 mg 0-21 tablet by ity of tablet 00:00: mouth at [place] 00 bedtime. Medical Branch losartan 25 2021-02 Yes [id number] 25mg Take 1 [facility] mg tablet 0-21 tablet by ity o f 00:00: mouth at [place] 00 bedtime. Medical Branch furosemide 2021-02 Yes [id number] 20mg Take 1 [facility] 20 mg 0-21 tablet by ity of tablet 00:00: mouth [place] 00 daily. Medical Branch spironolact 2021-02 Yes [id number] 25mg Take 1 [facility] one 25 mg 0-21 tablet by ity o f tablet 00:00: mouth [place] 00 daily. Medical Branch benzonatate 2021-02 Yes [id number] 200mg Take 1 [facility] 200 mg 0-21 capsule by ity of capsule 00:00: mouth 3 [place] 00 (three) Medical times Branch daily as needed for Cough. atorvastati 2021-02 Yes [id number] 40mg Take 1 [facility] n 40 mg 0-21 tablet by ity of tablet 00:00: mouth at [place] 00 bedtime. Medical Branch losartan 25 2021-02 Yes [id number] 25mg Take 1 [facility] mg tablet 0-21 tablet by ity o f 00:00: mouth at [place] 00 bedtime. Medical Branch furosemide 2021-02 Yes [id number] 20mg Take 1 [facility] 20 mg 0-21 tablet by ity of tablet 00:00: mouth [place] 00 daily. Medical Branch spironolact 2021-02 Yes [id number] 25mg Take 1 [facility] one 25 mg 0-21 tablet by ity o f tablet 00:00: mouth [place] 00 daily. Medical Branch benzonatate 2021-02 Yes [id number] 200mg Take 1 [facility] 200 mg 0-21 capsule by ity of capsule 00:00: mouth 3 [place] 00 (three) Medical times Branch daily as needed for Cough. atorvastati 2021-02 Yes [id number] 40mg Take 1 [facility] n 40 mg 0-21 tablet by ity of tablet 00:00: mouth at [place] 00 bedtime. Medical Branch losartan 25 2021-02 Yes [id number] 25mg Take 1 [facility] mg tablet 0-21 tablet by ity o f 00:00: mouth at [place] 00 bedtime. Medical Branch furosemide 2021-02 Yes [id number] 20mg Take 1 [facility] n[facility] 20 mg 0-21 tablet by [facility] tablet 00:00: mouth [place] 00 daily. [facility] spironolact 2021-02 Yes [id number] 25mg Take 1 [facility] one 25 mg 0-21 tablet by [facility] o f tablet 00:00: mouth [place] 00 daily. [facility] losartan 25 2021-02 Yes [id number] 25mg Take 1 [facility] mg tablet 0-21 tablet by [facility] o f 00:00: mouth at [place] 00 bedtime. [facility] furosemide 2021-02 Yes [id number] 20mg Take 1 [facility] 20 mg 0-21 tablet by [facility] of tablet 00:00: mouth [place] 00 daily. [facility] spironolact 2021-02 Yes [id number] 25mg Take 1 [facility] one 25 mg 0-21 tablet by [facility] o f tablet 00:00: mouth [place] 00 daily. [facility] losartan 25 2021-02 Yes [id number] 25mg Take 1 [facility] mg tablet 0-21 tablet by [facility] o f 00:00: mouth at [place] 00 bedtime. [facility] furosemide 2021-02 Yes [id number] 20mg Take 1 [facility] 20 mg 0-21 tablet by [facility] of tablet 00:00: mouth [place] 00 daily. [facility] spironolact 2021-02 Yes [id number] 25mg Take 1 [facility] one 25 mg 0-21 tablet by [facility] o f tablet 00:00: mouth [place] 00 daily. [facility] losartan 25 2021-02 Yes [id number] 25mg Take 1 [facility] mg tablet 0-21 tablet by [facility] o f 00:00: mouth at [place] 00 bedtime. [facility] furosemide 2021-02 Yes [id number] 20mg Take 1 [facility] 20 mg 0-21 tablet by [facility] tablet 00:00: mouth [place] 00 daily. [facility] spironolact 2021-02 Yes [id number] 25mg Take 1 [facility] one 25 mg 0-21 tablet by [facility] o f tablet 00:00: mouth [place] 00 daily. [facility] losartan 25 2021-02 Yes [id number] 25mg Take 1 [facility] mg tablet 0-21 tablet by [facility] o f 00:00: mouth at [place] 00 bedtime. [facility] furosemide 2021-02 Yes [id number] 20mg Take 1 [facility] 20 mg 0-21 tablet by [facility] of tablet 00:00: mouth [place] 00 daily. [facility] spironolact 2021-02 Yes [id number] 25mg Take 1 [facility] one 25 mg 0-21 tablet by [facility] o f tablet 00:00: mouth [place] 00 daily. [facility] spironolact 2021-02 Yes [id number] 25mg Take 1 [facility] one 25 mg 0-21 tablet by [facility] o f tablet 00:00: mouth [place] 00 daily. [facility] spironolact 2021-02 Yes [id number] 25mg Take 1 [facility] one 25 mg 0-21 tablet by [facility] o f tablet 00:00: mouth [place] 00 daily. [facility] spironolact 2021-02 Yes [id number] 25mg Take 1 [facility] one 25 mg 0-21 tablet by [facility] o f tablet 00:00: mouth [place] 00 daily. [facility] spironolact 2021-02 Yes [id number] 25mg Take 1 [facility] one 25 mg 0-21 tablet by [facility] o f tablet 00:00: mouth [place] 00 daily. [facility] spironolact 2021-02 Yes [id number] 25mg Take 1 [facility] one 25 mg 0-21 tablet by [facility] o f tablet 00:00: mouth [place] 00 daily. [facility] spironolact 2021-02 Yes [id number] 25mg Take 1 [facility] one 25 mg 0-21 tablet by [facility] o f tablet 00:00: mouth [place] 00 daily. [facility] spironolact 2021-02 Yes [id number] 25mg Take 1 [facility] one 25 mg 0-21 tablet by [facility] o f tablet 00:00: mouth [place] 00 daily. [facility] spironolact 2021-02 Yes [id number] 25mg Take 1 [facility] one 25 mg 0-21 tablet by [facility] o f tablet 00:00: mouth [place] 00 daily. [facility] spironolact 2021-02 Yes [id number] 25mg Take 1 [facility] one 25 mg 0-21 tablet by [facility] o f tablet 00:00: mouth [place] 00 daily. [facility] spironolact 2021-02 Yes [id number] 25mg Take 1 [facility] one 25 mg 0-21 tablet by [facility] o f tablet 00:00: mouth [place] 00 daily. [facility] spironolact 2021-02 Yes [id number] 25mg Take 1 [facility] one 25 mg 0-21 tablet by [facility] o f tablet 00:00: mouth [place] 00 daily. [facility] spironolact 2021-02 Yes [id number] 25mg Take 1 [facility] one 25 mg 0-21 tablet by [facility] o f tablet 00:00: mouth [place] 00 daily. [facility] spironolact 2021-02 Yes [id number] 25mg Take 1 [facility] one 25 mg 0-21 tablet by [facility] o f tablet 00:00: mouth [place] 00 daily. [facility] spironolact 2021-02 Yes [id number] 25mg Take 1 [facility] one 25 mg 0-21 tablet by [facility] o f tablet 00:00: mouth [place] 00 daily. [facility] spironolact 2021-02 Yes [id number] 25mg Take 1 [facility] one 25 mg 0-21 tablet by [facility] o f tablet 00:00: mouth [place] 00 daily. [facility] spironolact 2021-02 Yes [id number] 25mg Take 1 [facility] one 25 mg 0-21 tablet by [facility] o f tablet 00:00: mouth [place] 00 daily. [facility] spironolact 2021-02 Yes [id number] 25mg Take 1 [facility] one 25 mg 0-21 tablet by [facility] o f tablet 00:00: mouth [place] 00 daily. [facility] spironolact 2021-02 Yes [id number] 25mg Take 1 [facility] one 25 mg 0-21 tablet by [facility] o f tablet 00:00: mouth [place] 00 daily. [facility] spironolact 2021-02 Yes [id number] 25mg Take 1 [facility] one 25 mg 0-21 tablet by [facility] o f tablet 00:00: mouth [place] 00 daily. [facility] spironolact 2021-02 Yes [id number] 25mg Take 1 [facility] one 25 mg 0-21 tablet by [facility] o f tablet 00:00: mouth [place] 00 daily. [facility] spironolact 2021-02 Yes [id number] 25mg Take 1 [facility] one 25 mg 0-21 tablet by [facility] o f tablet 00:00: mouth [place] 00 daily. [facility] spironolact 2021-02 Yes [id number] 25mg Take 1 [facility] one 25 mg 0-21 tablet by [facility] o f tablet 00:00: mouth [place] 00 daily. [facility] spironolact 2021-02 Yes [id number] 25mg Take 1 [facility] one 25 mg 0-21 tablet by [facility] o f tablet 00:00: mouth [place] 00 daily. [facility] spironolact 2021-02 Yes [id number] 25mg Take 1 [facility] one 25 mg 0-21 tablet by [facility] o f tablet 00:00: mouth [place] 00 daily. [facility] spironolact 2021-02- No [id number] 25mg Take 1 [facility] one 25 mg 0-21 04-12 tablet by [facility] of tablet 00:00: 00:00 mouth [place] 00 :00 daily. [facility] spironolact 2021-02- No [id number] 25mg Take 1 [facility] one 25 mg 0-21 04-12 tablet by [facility] of tablet 00:00: 00:00 mouth [place] 00 :00 daily. [facility] losartan 25 2021-02- No [id number] 25mg Take 1 [facility] mg tablet 0-21 -27 tablet by [facility] of 00:00: 00:00 mouth at [place] 00 :00 bedtime. [facility] furosemide 2021-02- No [id number] 20mg Take 1 [facility] 20 mg 0-21 -27 tablet by [facility] of tablet 00:00: 00:00 mouth [place] 00 :00 daily. [facility] losartan 25 2021-02- No [id number] 25mg Take 1 [facility] mg tablet 0-03-11 tablet by [facility] of 00:00: 00:00 mouth at [place] 00 :00 bedtime. [facility] furosemide 2021-02- No [id number] 20mg Take 1 [facility] 20 mg 0-05 03-27 tablet by [facility] of tablet 00:00: 00:00 mouth [place] 00 :00 daily. [facility] losartan 25 2021-02- No [id number] 25mg Take 1 [facility] mg tablet 0-03-11 tablet by [facility] of 00:00: 00:00 mouth at [place] 00 :00 bedtime. [facility] furosemide 2021-02- No [id number] 20mg Take 1 [facility] 20 mg 0-03-11 tablet by [facility] of tablet 00:00: 00:00 mouth [place] 00 :00 daily. [facility] losartan 25 2021-02- No [id number] 25mg Take 1 [facility] mg tablet 003-11 tablet by [facility] of 00:00: 00:00 mouth at [place] 00 :00 bedtime. [facility] furosemide 2021-02- No [id number] 20mg Take 1 [facility] 20 mg 0-03-11 tablet by [facility] of tablet 00:00: 00:00 mouth [place] 00 :00 daily. [facility] losartan 25 2021-02- No [id number] 25mg Take 1 [facility] mg tablet 0-03-11 tablet by [facility] of 00:00: 00:00 mouth at [place] 00 :00 bedtime. [facility] furosemide 2021-02- No [id number] 20mg Take 1 [facility] 20 mg 0-05 03-27 tablet by [facility] of tablet 00:00: 00:00 mouth [place] 00 :00 daily. [facility] losartan 25 2021-02- No [id number] 25mg Take 1 [facility] mg tablet 0-03-11 tablet by [facility] of 00:00: 00:00 mouth at [place] 00 :00 bedtime. [facility] furosemide 2021-2022- No [id number] 20mg Take 1 [facility] 20 mg 0-05 03-27 tablet by [facility] of tablet 00:00: 00:00 mouth [place] 00 :00 daily. [facility] losartan 25 2021-02- No [id number] 25mg Take 1 [facility] mg tablet 0-03-11 tablet by [facility] of 00:00: 00:00 mouth at [place] 00 :00 bedtime. [facility] furosemide 2021-02- No [id number] 20mg Take 1 [facility] 20 mg 0-05 03- tablet by [facility] of tablet 00:00: 00:00 mouth [place] 00 :00 daily. [facility] benzonatate 2021-02- No [id number] 200mg Take 1 [facility] 200 mg 0-21 - capsule by [facility] of capsule 00:00: 00:00 mouth 3 [place] 00 :00 (three) Medical times Branch daily as needed for Cough. atorvastati 2021-02- No [id number] 40mg Take 1 [facility] n 40 mg 0-21 - tablet by [facility] of tablet 00:00: 00:00 mouth at [place] 00 :00 bedtime. Medical Branch benzonatate 2021-02- No [id number] 200mg Take 1 [facility] 200 mg 0-02 02- capsule by [facility] of capsule 00:00: 00:00 mouth 3 [place] 00 :00 (three) Medical times Branch daily as needed for Cough. atorvastati 2021-02- No [id number] 40mg Take 1 [facility] n 40 mg 0-21 - tablet by [facility] of tablet 00:00: 00:00 mouth at [place] 00 :00 bedtime. [facility] Branch losartan 50 0 Yes [id number] 25mg Take 0.5 [facility] mg tablet 9-12 tablets by ity of 00:00: mouth [place] 00 every Medical evening. Branch losartan 50 0 Yes [id number] 25mg Take 0.5 [facility] mg tablet 9-12 tablets by ity of 00:00: mouth [place] 00 every Medical evening. Branch losartan 50 2021-0 Yes [id number] 25mg Take 0.5 [facility] mg tablet 9-12 tablets by it[facility] of 00:00: mouth [place] 00 every Medical evening. Branch losartan 50 0 Yes [id number] 25mg Take 0.5 [facility] mg tablet 9-12 tablets by ity of 00:00: mouth [place] 00 every Medical evening. Branch losartan 50 0 Yes [id number] 25mg Take 0.5 [facility] mg tablet 9-12 tablets by ity of 00:00: mouth [place] 00 every Medical evening. Branch losartan 50 2021-0 Yes [id number] 25mg Take 0.5 [facility] mg tablet 9-12 tablets by it[facility] of 00:00: mouth [place] 00 every Medical evening. Branch losartan 50 2021-0 Yes [id number] 25mg Take 0.5 [facility] mg tablet 9-12 tablets by it[facility] of 00:00: mouth [place] 00 every Medical evening. Branch losartan 50 2021-0 Yes [id number] 25mg Take 0.5 [facility] mg tablet 9-12 tablets by it[facility] of 00:00: mouth [place] 00 every Medical evening. Branch losartan 50 2021-0 Yes [id number] 25mg Take 0.5 [facility] mg tablet 9-12 tablets by it[facility] of 00:00: mouth [place] 00 every Medical evening. Branch losartan 50 2021-0 Yes [id number] 25mg Take 0.5 [facility] mg tablet 9-12 tablets by ity of 00:00: mouth [place] 00 every Medical evening. Branch losartan 50 2021-0 Yes [id number] 25mg Take 0.5 [facility] mg tablet 9-12 tablets by ity of 00:00: mouth [place] 00 every Medical evening. Branch losartan 50 2021-0 Yes [id number] 25mg Take 0.5 [facility] mg tablet 9-12 tablets by ity of 00:00: mouth [place] 00 every Medical evening. Branch losartan 50 2021-0 Yes [id number] 25mg Take 0.5 [facility] mg tablet 9-12 tablets by ity of 00:00: mouth [place] 00 every Medical evening. Branch losartan 50 2021-0 2021- No [id number] 25mg Take 0.5 [facility] mg tablet 9-12 10-21 tablets by ity of 00:00: 00:00 mouth [place] 00 :00 every Medical evening. Branch losartan 50 2021-0 2021- No [id number] 25mg Take 0.5 [facility] mg tablet 9-12 [...] Take 1 [facility] rs 500 mg 24 - tablet by ity o f hr tablet 00:00: mouth [place] 00 daily with Medical breakfast. Branch metFORMIN 2021-2021- No 500mg Take 1 [facility] ers 500 mg 24 7- 11-09 tablet by ity of hr tablet 00:00: 00:00 mouth [place] 00 :00 daily with Medical breakfast. Branch OXYBUTYNIN 2021-2021- No 10mg Take 10 mg [facility] CHLORIDE 7-15 -15 by mouth. ity o f ORAL 14:50: 00:00 Managed by [place] 14 :00 Dr. Cuenca [facility] OXYBUTYNIN 2021-2021- No 10mg Take 10 mg [facility] CHLORIDE 7-15 -15 by mouth. ity o f ORAL 14:50: 00:00 Managed by [place] 14 :00 Dr. Cuenca [facility] losartan 50 2021-2021- No [id number] 50mg Take 1 [facility] mg tablet 08-27-12 tablet by ity of 00:00: 00:00 mouth [place] 00 :00 daily. Medical Branch losartan 50 2021-0 2021- No [id number] 50mg Take 1 [facility] mg tablet -03 09-15 tablet by ity of 00:00: 00:00 mouth 2 [place] 00 :00 (two) Medical times Branch daily. losartan 50 2021-0 2021- No [id number] 50mg Take 1 [facility] mg tablet -03 09-15 tablet by ity of 00:00: 00:00 mouth [...] mouth [place] 00 :00 daily. [facility] Branch [facility] 2020-02 Yes [id number] 40mg TAKE 1 [facility] N 40 mg 2-13 TABLET BY ity of tablet 00:00: MOUTH AT [place] [facility] 2020-02 Yes [id number] 40mg TAKE 1 [facility] N 40 mg 2-13 TABLET BY ity of tablet 00:00: MOUTH AT [place] [facility] 2020-02 Yes [id number] 40mg TAKE 1 [facility] N 40 mg 2-13 TABLET BY ity of tablet 00:00: MOUTH AT [place] [facility] 2020-02 Yes [id number] 40mg TAKE 1 [facility] N 40 mg 2-13 TABLET BY ity of tablet 00:00: MOUTH AT [address] 2020-02 Yes [id number] 40mg TAKE 1 [facility] N 40 mg 2-13 TABLET BY ity of tablet 00:00: MOUTH AT [address] 2020-02 Yes [id number] 40mg TAKE 1 [facility] N 40 mg 2-13 TABLET BY ity of tablet 00:00: MOUTH AT [place] [facility] 2020-02 Yes [id number] 40mg TAKE 1 [facility] N 40 mg 2-13 TABLET BY ity of tablet 00:00: MOUTH AT [address] 2020-02 Yes [id number] 40mg TAKE 1 [facility] N 40 mg 2-13 TABLET BY ity of tablet 00:00: MOUTH AT [address] 2020-02 Yes [id number] 40mg TAKE 1 [facility] N 40 mg 2-13 TABLET BY ity of tablet 00:00: MOUTH AT [address] 2020-02 Yes [id number] 40mg TAKE 1 [facility] N 40 mg 2-13 TABLET BY ity of tablet 00:00: MOUTH AT [address] 2020-02 Yes [id number] 40mg TAKE 1 [facility] N 40 mg 2-13 TABLET BY ity of tablet 00:00: MOUTH AT [address] 2020-02 Yes [id number] 40mg TAKE 1 [facility] N 40 mg 2-13 TABLET BY ity of tablet 00:00: MOUTH AT [place] 00 [facility] 2020-02 Yes [id number] 40mg TAKE 1 [facility] N 40 mg 2-13 TABLET BY ity of tablet 00:00: MOUTH AT [place] [facility] 2020-02 Yes [id number] 40mg TAKE 1 [facility] N 40 mg 2-13 TABLET BY ity of tablet 00:00: MOUTH AT [place] [facility] 2020-02- No [id number] 40mg TAKE 1 [facility] N 40 mg 2-13 10-21 TABLET BY ity of tablet 00:00: 00:00 MOUTH AT [place] 00 :00 [facility] 2020-02- No [id number] 40mg TAKE 1 [facility] N 40 mg 2-13 10-21 TABLET BY ity of tablet 00:00: 00:00 MOUTH AT [place] 00 :00 [facility] 2020-02- No [id number] 40mg TAKE 1 [facility] N 40 mg 2-13 10-21 TABLET BY ity of tablet 00:00: 00:00 MOUTH AT [place] 00 :00 [facility] 2020-02- No [id number] 40mg TAKE 1 [facility] N 40 mg 2-13 10-21 TABLET BY ity of tablet 00:00: 00:00 MOUTH AT [place] 00 :00 [facility] azelastine 2020-02 Yes [id number] 1{spray Use 1 [facility] 137 mcg 2-02 } [place] in ity of (0.1 %) 00:00: each [place] nasal spray 00 nostril 2 Med ical (two) Branch times daily. Use in each nostril as directed fluticasone 2020-02 Yes [id number] 2{puff} Inhale 2 [facility] propionate 2-02 Puffs 2 ity of (FLOVENT 00:00: (two) [place] HFA) 44 00 times Medical mcg/actuati daily. Branch on inhaler Rinse mouth after each use. azelastine 2020-02 Yes [id number] 1{spray Use 1 [facility] 137 mcg 2-02 } [place] in ity of (0.1 %) 00:00: each [place] nasal spray 00 nostril 2 Med ical (two) Branch times daily. Use in each nostril as directed fluticasone 2020-02 Yes [id number] 2{puff} Inhale 2 [facility] propionate 2-02 Puffs 2 ity of (FLOVENT 00:00: (two) [place] HFA) 44 00 times Medical mcg/actuati daily. Branch on inhaler Rinse mouth after each use. azelastine 2020-02 Yes [id number] 1{spray Use 1 [facility] 137 mcg 2-02 } [place] in ity of (0.1 %) 00:00: each [place] nasal spray 00 nostril 2 Med ical (two) Branch times daily. Use in each nostril as directed fluticasone 2020-02 Yes [id number] 2{puff} Inhale 2 [facility] propionate 2-02 Puffs 2 ity of (FLOVENT 00:00: (two) [place] HFA) 44 00 times Medical mcg/actuati daily. Branch on inhaler Rinse mouth after each use. azelastine 2020-02 Yes [id number] 1{spray Use 1 [facility] 137 mcg 2-02 } [place] in ity of (0.1 %) 00:00: each [place] nasal spray 00 nostril 2 Med ical (two) Branch times daily. Use in each nostril as directed fluticasone 2020-02 Yes [id number] 2{puff} Inhale 2 [facility] propionate 2-02 Puffs 2 ity of (FLOVENT 00:00: (two) [place] HFA) 44 00 times Medical mcg/actuati daily. Branch on inhaler Rinse mouth after each use. azelastine 2020-02 Yes [id number] 1{spray Use 1 [facility] 137 mcg 2-02 } [place] in ity of (0.1 %) 00:00: each [place] nasal spray 00 nostril 2 Med ical (two) Branch times daily. Use in each nostril as directed fluticasone 2020-02 Yes [id number] 2{puff} Inhale 2 [facility] propionate 2-02 Puffs 2 ity of (FLOVENT 00:00: (two) [place] HFA) 44 00 times Medical mcg/actuati daily. Branch on inhaler Rinse mouth after each use. azelastine 2020-02 Yes [id number] 1{spray Use 1 [facility] 137 mcg 2-02 } [place] in ity of (0.1 %) 00:00: each [place] nasal spray 00 nostril 2 Med ical (two) Branch times daily. Use in each nostril as directed fluticasone 2020-02 Yes [id number] 2{puff} Inhale 2 [facility] propionate 2-02 Puffs 2 ity of (FLOVENT 00:00: (two) [place] HFA) 44 00 times Medical mcg/actuati daily. Branch on inhaler Rinse mouth after each use. azelastine 2020-02 Yes [id number] 1{spray Use 1 [facility] 137 mcg 2-02 } [place] in ity of (0.1 %) 00:00: each [place] nasal spray 00 nostril 2 Med ical (two) Branch times daily. Use in each nostril as directed fluticasone 2020-02 Yes [id number] 2{puff} Inhale 2 [facility] propionate 2-02 Puffs 2 ity of (FLOVENT 00:00: (two) [place] HFA) 44 00 times Medical mcg/actuati daily. Branch on inhaler Rinse mouth after each use. azelastine 2020-02 Yes [id number] 1{spray Use 1 [facility] 137 mcg 2-02 } [place] in ity of (0.1 %) 00:00: each [place] nasal spray 00 nostril 2 Med ical (two) Branch times daily. Use in each nostril as directed fluticasone 2020-02 Yes [id number] 2{puff} Inhale 2 [facility] propionate 2-02 Puffs 2 ity of (FLOVENT 00:00: (two) [place] HFA) 44 00 times Medical mcg/actuati daily. Branch on inhaler Rinse mouth after each use. azelastine 2020-02 Yes [id number] 1{spray Use 1 [facility] 137 mcg 2-02 } [place] in ity of (0.1 %) 00:00: each [place] nasal spray 00 nostril 2 Med ical (two) Branch times daily. Use in each nostril as directed fluticasone 2020-02 Yes [id number] 2{puff} Inhale 2 [facility] propionate 2-02 Puffs 2 ity of (FLOVENT 00:00: (two) [place] HFA) 44 00 times Medical mcg/actuati daily. Branch on inhaler Rinse mouth after each use. azelastine 2020-02 Yes [id number] 1{spray Use 1 [facility] 137 mcg 2-02 } [place] in ity of (0.1 %) 00:00: each [place] nasal spray 00 nostril 2 Med ical (two) Branch times daily. Use in each nostril as directed fluticasone 2020-02 Yes [id number] 2{puff} Inhale 2 [facility] propionate 2-02 Puffs 2 ity of (FLOVENT 00:00: (two) [place] HFA) 44 00 times Medical mcg/actuati daily. Branch on inhaler Rinse mouth after each use. azelastine 2020-02 Yes [id number] 1{spray Use 1 [facility] 137 mcg 2-02 } [place] in ity of (0.1 %) 00:00: each [place] nasal spray 00 nostril 2 Med ical (two) Branch times daily. Use in each nostril as directed fluticasone 2020-02 Yes [id number] 2{puff} Inhale 2 [facility] propionate 2-02 Puffs 2 ity of (FLOVENT 00:00: (two) [place] HFA) 44 00 times Medical mcg/actuati daily. Branch on inhaler Rinse mouth after each use. azelastine 2020-02 Yes [id number] 1{spray Use 1 [facility] 137 mcg 2-02 } [place] in ity of (0.1 %) 00:00: each [place] nasal spray 00 nostril 2 Med ical (two) Branch times daily. Use in each nostril as directed fluticasone 2020-02 Yes [id number] 2{puff} Inhale 2 [facility] propionate 2-02 Puffs 2 ity of (FLOVENT 00:00: (two) [place] HFA) 44 00 times Medical mcg/actuati daily. Branch on inhaler Rinse mouth after each use. azelastine 2020-02 Yes [id number] 1{spray Use 1 [facility] 137 mcg 2-02 } [place] in ity of (0.1 %) 00:00: each [place] nasal spray 00 nostril 2 Med ical (two) Branch times daily. Use in each nostril as directed fluticasone 2020-02 Yes [id number] 2{puff} Inhale 2 [facility] propionate 2-02 Puffs 2 ity of (FLOVENT 00:00: (two) [place] HFA) 44 00 times Medical mcg/actuati daily. Branch on inhaler Rinse mouth after each use. azelastine 2020-02 Yes [id number] 1{spray Use 1 [facility] 137 mcg 2-02 } [place] in ity of (0.1 %) 00:00: each [place] nasal spray 00 nostril 2 Med ical (two) Branch times daily. Use in each nostril as directed fluticasone 2020-02 Yes [id number] 2{puff} Inhale 2 [facility] propionate 2-02 Puffs 2 ity of (FLOVENT 00:00: (two) [place] HFA) 44 00 times Medical mcg/actuati daily. Branch on inhaler Rinse mouth after each use. azelastine 2020-02 Yes [id number] 1{spray Use 1 [facility] 137 mcg 2-02 } [place] in ity of (0.1 %) 00:00: each [place] nasal spray 00 nostril 2 Med ical (two) Branch times daily. Use in each nostril as directed fluticasone 2020-02 Yes [id number] 2{puff} Inhale 2 [facility] propionate 2-02 Puffs 2 ity of (FLOVENT 00:00: (two) [place] HFA) 44 00 times Medical mcg/actuati daily. Branch on inhaler Rinse mouth after each use. azelastine 2020-02 Yes [id number] 1{spray Use 1 [facility] 137 mcg 2-02 } [place] in ity of (0.1 %) 00:00: each [place] nasal spray 00 nostril 2 Med ical (two) Branch times daily. Use in each nostril as directed fluticasone 2020-02 Yes [id number] 2{puff} Inhale 2 [facility] propionate 2-02 Puffs 2 ity of (FLOVENT 00:00: (two) [place] HFA) 44 00 times Medical mcg/actuati daily. Branch on inhaler Rinse mouth after each use. azelastine 2020-02 Yes [id number] 1{spray Use 1 [facility] 137 mcg 2-02 } [place] in ity of (0.1 %) 00:00: each [place] nasal spray 00 nostril 2 Med ical (two) Branch times daily. Use in each nostril as directed fluticasone 2020-02 Yes [id number] 2{puff} Inhale 2 [facility] propionate 2-02 Puffs 2 ity of (FLOVENT 00:00: (two) [place] HFA) 44 00 times Medical mcg/actuati daily. Branch on inhaler Rinse mouth after each use. azelastine 2020-02 Yes [id number] 1{spray Use 1 [facility] 137 mcg 2-02 } [place] in ity of (0.1 %) 00:00: each [place] nasal spray 00 nostril 2 Med ical (two) Branch times daily. Use in each nostril as directed fluticasone 2020-02 Yes [id number] 2{puff} Inhale 2 [facility] propionate 2-02 Puffs 2 ity of (FLOVENT 00:00: (two) [place] HFA) 44 00 times Medical mcg/actuati daily. Branch on inhaler Rinse mouth after each use. azelastine 2020-02 Yes [id number] 1{spray Use 1 [facility] 137 mcg 2-02 } [place] in ity of (0.1 %) 00:00: each [place] nasal spray 00 nostril 2 Med ical (two) Branch times daily. Use in each nostril as directed fluticasone 2020-02 Yes [id number] 2{puff} Inhale 2 [facility] propionate 2-02 Puffs 2 ity of (FLOVENT 00:00: (two) [place] HFA) 44 00 times Medical mcg/actuati daily. Branch on inhaler Rinse mouth after each use. azelastine 2020-02 Yes [id number] 1{spray Use 1 [facility] 137 mcg 2-02 } [place] in ity of (0.1 %) 00:00: each [place] nasal spray 00 nostril 2 Med ical (two) Branch times daily. Use in each nostril as directed fluticasone 2020-02 Yes [id number] 2{puff} Inhale 2 [facility] propionate 2-02 Puffs 2 ity of (FLOVENT 00:00: (two) [place] HFA) 44 00 times Medical mcg/actuati daily. Branch on inhaler Rinse mouth after each use. azelastine 2020-02 Yes [id number] 1{spray Use 1 [facility] 137 mcg 2-02 } [place] in ity of (0.1 %) 00:00: each [place] nasal spray 00 nostril 2 Med ical (two) Branch times daily. Use in each nostril as directed fluticasone 2020-02 Yes [id number] 2{puff} Inhale 2 [facility] propionate 2-02 Puffs 2 ity of (FLOVENT 00:00: (two) [place] HFA) 44 00 times Medical mcg/actuati daily. Branch on inhaler Rinse mouth after each use. azelastine 2020-02 Yes [id number] 1{spray Use 1 [facility] 137 mcg 2-02 } [place] in ity of (0.1 %) 00:00: each [place] nasal spray 00 nostril 2 Med ical (two) Branch times daily. Use in each nostril as directed fluticasone 2020-02 Yes [id number] 2{puff} Inhale 2 [facility] propionate 2-02 Puffs 2 ity of (FLOVENT 00:00: (two) [place] HFA) 44 00 times Medical mcg/actuati daily. Branch on inhaler Rinse mouth after each use. azelastine 2020-02 Yes [id number] 1{spray Use 1 [facility] 137 mcg 2-02 } [place] in ity of (0.1 %) 00:00: each [place] nasal spray 00 nostril 2 Med ical (two) Branch times daily. Use in each nostril as directed fluticasone 2020-02 Yes [id number] 2{puff} Inhale 2 [facility] propionate 2-02 Puffs 2 ity of (FLOVENT 00:00: (two) [place] HFA) 44 00 times Medical mcg/actuati daily. Branch on inhaler Rinse mouth after each use. azelastine 2020-02 Yes [id number] 1{spray Use 1 [facility] 137 mcg 2-02 } [place] in ity of (0.1 %) 00:00: each [place] nasal spray 00 nostril 2 Med ical (two) Branch times daily. Use in each nostril as directed fluticasone 2020-02 Yes [id number] 2{puff} Inhale 2 [facility] propionate 2-02 Puffs 2 ity of (FLOVENT 00:00: (two) [place] HFA) 44 00 times Medical mcg/actuati daily. Branch on inhaler Rinse mouth after each use. azelastine 2020-02 Yes [id number] 1{spray Use 1 [facility] 137 mcg 2-02 } [place] in ity of (0.1 %) 00:00: each [place] nasal spray 00 nostril 2 Med ical (two) Branch times daily. Use in each nostril as directed fluticasone 2020-02 Yes [id number] 2{puff} Inhale 2 [facility] propionate 2-02 Puffs 2 ity of (FLOVENT 00:00: (two) [place] HFA) 44 00 times Medical mcg/actuati daily. Branch on inhaler Rinse mouth after each use. azelastine 2020-02 Yes [id number] 1{spray Use 1 [facility] 137 mcg 2-02 } [place] in ity of (0.1 %) 00:00: each [place] nasal spray 00 nostril 2 Med ical (two) Branch times daily. Use in each nostril as directed fluticasone 2020-02 Yes [id number] 2{puff} Inhale 2 [facility] propionate 2-02 Puffs 2 [facility] of (FL[facility]ENT 00:00: (two) [place] [facility]) 44 00 times Medical mcg/actuati daily. Branch on inhaler Rinse mouth after each use. azelastine 2020-02 Yes [id number] 1{spray Use 1 [facility] 137 mcg 2-02 } [place] in [facility] of (0.1 %) 00:00: each [place] nasal spray 00 nostril 2 Med ical (two) Branch times daily. Use in each nostril as directed fluticasone 2020-02 Yes [id number] 2{puff} Inhale 2 [facility] propionate 2-02 Puffs 2 [facility] of (FLOVENT 00:00: (two) [place] [facility]FA) 44 00 times Medical mcg/actuati daily. Branch on inhaler Rinse mouth after each use. azelastine 2020-02 Yes [id number] 1{spray Use 1 [facility] 137 mcg 2-02 } [place] in [facility] of (0.1 %) 00:00: each [place] nasal spray 00 nostril 2 Med ical (two) Branch times daily. Use in each nostril as directed fluticasone 2020-02 Yes [id number] 2{puff} Inhale 2 [facility] propionate 2-02 Puffs 2 [facility] of (FLOVENT 00:00: (two) [place] [facility]FA) 44 00 times Medical mcg/actuati daily. Branch on inhaler Rinse mouth after each use. azelastine 2020-02 Yes [id number] 1{spray Use 1 [facility] 137 mcg 2-02 } [place] in [facility] of (0.1 %) 00:00: each [place] nasal spray 00 nostril 2 Med ical (two) Branch times daily. Use in each nostril as directed fluticasone 2020-02 Yes [id number] 2{puff} Inhale 2 [facility] propionate 2-02 Puffs 2 [facility] of (FLOVENT 00:00: (two) [place] [facility]FA) 44 00 times Medical mcg/actuati daily. Branch on inhaler Rinse mouth after each use. azelastine 2020-02 Yes [id number] 1{spray Use 1 [facility] 137 mcg 2-02 } [place] in [facility] of (0.1 %) 00:00: each [place] nasal spray 00 nostril 2 Med ical (two) Branch times daily. Use in each nostril as directed fluticasone 2020-02 Yes [id number] 2{puff} Inhale 2 [facility] propionate 2-02 Puffs 2 [facility]y of (FLOVENT 00:00: (two) [place] [facility]FA) 44 00 times Medical mcg/actuati daily. Branch on inhaler Rinse mouth after each use. azelastine 2020-02 Yes [id number] 1{spray Use 1 [facility] 137 mcg 2-02 } [place] in [facility] of (0.1 %) 00:00: each [place] nasal spray 00 nostril 2 Med ical (two) Branch times daily. Use in each nostril as directed fluticasone 2020-02 Yes [id number] 2{puff} Inhale 2 [facility] propionate 2-02 Puffs 2 [facility] of (FLOVENT 00:00: (two) [place] [facility]) 44 00 times Medical mcg/actuati daily. Branch on inhaler Rinse mouth after each use. azelastine 2020-02 Yes [id number] 1{spray Use 1 [facility] 137 mcg 2-02 } [place] in [facility] of (0.1 %) 00:00: each [place] nasal spray 00 nostril 2 Med ical (two) Branch times daily. Use in each nostril as directed fluticasone 2020-02 Yes [id number] 2{puff} Inhale 2 [facility] propionate 2-02 Puffs 2 [facility] of (FLOVENT 00:00: (two) [place] [facility]) 44 00 times Medical mcg/actuati daily. Branch on inhaler Rinse mouth after each use. azelastine 2020-02 Yes [id number] 1{spray Use 1 [facility] 137 mcg 2-02 } [place] in [facility] of (0.1 %) 00:00: each [place] nasal spray 00 nostril 2 Med ical (two) Branch times daily. Use in each nostril as directed fluticasone 2020-02 Yes [id number] 2{puff} Inhale 2 [facility] propionate 2-02 Puffs 2 [facility] of (FLOVENT 00:00: (two) [place] [facility]) 44 00 times Medical mcg/actuati daily. Branch on inhaler Rinse mouth after each use. azelastine 2020-02 Yes [id number] 1{spray Use 1 [facility] 137 mcg 2-02 } [place] in [facility] of (0.1 %) 00:00: each [place] nasal spray 00 nostril 2 Med ical (two) Branch times daily. Use in each nostril as directed fluticasone 2020-02 Yes [id number] 2{puff} Inhale 2 [facility] propionate 2-02 Puffs 2 [facility]y of (FLOVENT 00:00: (two) [place] [facility]) 44 00 times Medical mcg/actuati daily. Branch on inhaler Rinse mouth after each use. azelastine 2020-02 Yes [id number] 1{spray Use 1 [facility] 137 mcg 2-02 } [place] in [facility] of (0.1 %) 00:00: each [place] nasal spray 00 nostril 2 Med ical (two) Branch times daily. Use in each nostril as directed fluticasone 2020-02 Yes [id number] 2{puff} Inhale 2 [facility] propionate 2-02 Puffs 2 [facility]y of (FLOVENT 00:00: (two) [place] [facility]) 44 00 times Medical mcg/actuati daily. Branch on inhaler Rinse mouth after each use. azelastine 2020-02 Yes [id number] 1{spray Use 1 [facility] 137 mcg 2-02 } [place] in [facility] of (0.1 %) 00:00: each [place] nasal spray 00 nostril 2 Med ical (two) Branch times daily. Use in each nostril as directed fluticasone 2020-02 Yes [id number] 2{puff} Inhale 2 [facility] propionate 2-02 Puffs 2 [facility] of (FLOVENT 00:00: (two) [place] [facility]) 44 00 times Medical mcg/actuati daily. Branch on inhaler Rinse mouth after each use. azelastine 2020-02 Yes [id number] 1{spray Use 1 [facility] 137 mcg 2-02 } [place] in [facility] of (0.1 %) 00:00: each [place] nasal spray 00 nostril 2 Med ical (two) Branch times daily. Use in each nostril as directed fluticasone 2020-02 Yes [id number] 2{puff} Inhale 2 [facility] propionate 2-02 Puffs 2 [facility] of (FLOVENT 00:00: (two) [place] [facility]) 44 00 times Medical mcg/actuati daily. Branch on inhaler Rinse mouth after each use. azelastine 2020-02 Yes [id number] 1{spray Use 1 [facility] 137 mcg 2-02 } [place] in [facility] of (0.1 %) 00:00: each [place] nasal spray 00 nostril 2 Med ical (two) Branch times daily. Use in each nostril as directed fluticasone 2020-02 Yes [id number] 2{puff} Inhale 2 [facility] propionate 2-02 Puffs 2 [facility] of (FLOVENT 00:00: (two) [place] [facility]) 44 00 times Medical mcg/actuati daily. Branch on inhaler Rinse mouth after each use. azelastine 2020-02 Yes [id number] 1{spray Use 1 [facility] 137 mcg 2-02 } [place] in [facility] of (0.1 %) 00:00: each [place] nasal spray 00 nostril 2 Med ical (two) Branch times daily. Use in each nostril as directed fluticasone 2020-02 Yes [id number] 2{puff} Inhale 2 [facility] propionate 2-02 Puffs 2 [facility] of (FLOVENT 00:00: (two) [place] [facility]) 44 00 times Medical mcg/actuati daily. Branch on inhaler Rinse mouth after each use. azelastine 2020-02 Yes [id number] 1{spray Use 1 [facility] 137 mcg 2-02 } [place] in [facility] of (0.1 %) 00:00: each [place] nasal spray 00 nostril 2 Med ical (two) Branch times daily. Use in each nostril as directed fluticasone 2020-02 Yes [id number] 2{puff} Inhale 2 [facility] propionate 2-02 Puffs 2 [facility] of (FLOVENT 00:00: (two) [place] [facility]) 44 00 times Medical mcg/actuati daily. Branch on inhaler Rinse mouth after each use. azelastine 2020-02 Yes [id number] 1{spray Use 1 [facility] 137 mcg 2-02 } [place] in [facility] of (0.1 %) 00:00: each [place] nasal spray 00 nostril 2 Med ical (two) Branch times daily. Use in each nostril as directed fluticasone 2020-02 Yes [id number] 2{puff} Inhale 2 [facility] propionate 2-02 Puffs 2 [facility] of (FLOVENT 00:00: (two) [place] [facility]) 44 00 times Medical mcg/actuati daily. Branch on inhaler Rinse mouth after each use. azelastine 2020-02 Yes [id number] 1{spray Use 1 [facility] 137 mcg 2-02 } [place] in [facility] of (0.1 %) 00:00: each [place] nasal spray 00 nostril 2 Med ical (two) Branch times daily. Use in each nostril as directed fluticasone 2020-02 Yes [id number] 2{puff} Inhale 2 [facility] propionate 2-02 Puffs 2 [facility] of (FLOVENT 00:00: (two) [place] [facility]) 44 00 times Medical mcg/actuati daily. Branch on inhaler Rinse mouth after each use. azelastine 2020-02 Yes [id number] 1{spray Use 1 [facility] 137 mcg 2-02 } [place] in [facility] of (0.1 %) 00:00: each [place] nasal spray 00 nostril 2 Med ical (two) Branch times daily. Use in each nostril as directed fluticasone 2020-02 Yes [id number] 2{puff} Inhale 2 [facility] propionate 2-02 Puffs 2 [facility] of (FLOVENT 00:00: (two) [place] [facility]) 44 00 times Medical mcg/actuati daily. Branch on inhaler Rinse mouth after each use. azelastine 2020-02 Yes [id number] 1{spray Use 1 [facility] 137 mcg 2-02 } [place] in [facility] of (0.1 %) 00:00: each [place] nasal spray 00 nostril 2 Med ical (two) Branch times daily. Use in each nostril as directed fluticasone 2020-02 Yes [id number] 2{puff} Inhale 2 [facility] propionate 2-02 Puffs 2 [facility] of (FLOVENT 00:00: (two) [place] [facility]) 44 00 times Medical mcg/actuati daily. Branch on inhaler Rinse mouth after each use. azelastine 2020-02 Yes [id number] 1{spray Use 1 [facility] 137 mcg 2-02 } [place] in [facility] of (0.1 %) 00:00: each [place] nasal spray 00 nostril 2 Med ical (two) Branch times daily. Use in each nostril as directed fluticasone 2020-02 Yes [id number] 2{puff} Inhale 2 [facility] propionate 2-02 Puffs 2 [facility] of (FLOVENT 00:00: (two) [place] [facility]) 44 00 times Medical mcg/actuati daily. Branch on inhaler Rinse mouth after each use. azelastine 2020-02 Yes [id number] 1{spray Use 1 [facility] 137 mcg 2-02 } [place] in [facility] of (0.1 %) 00:00: each [place] nasal spray 00 nostril 2 Med ical (two) Branch times daily. Use in each nostril as directed fluticasone 2020-02 Yes [id number] 2{puff} Inhale 2 [facility] propionate 2-02 Puffs 2 [facility]y of (FLOVENT 00:00: (two) [place] [facility]) 44 00 times Medical mcg/actuati daily. Branch on inhaler Rinse mouth after each use. azelastine 2020-02 Yes [id number] 1{spray Use 1 [facility] 137 mcg 2-02 } [place] in [facility] of (0.1 %) 00:00: each [place] nasal spray 00 nostril 2 Med ical (two) Branch times daily. Use in each nostril as directed fluticasone 2020-02 Yes [id number] 2{puff} Inhale 2 [facility] propionate 2-02 Puffs 2 [facility]y of (FLOVENT 00:00: (two) [place] [facility]) 44 00 times Medical mcg/actuati daily. Branch on inhaler Rinse mouth after each use. azelastine 2020-02 Yes [id number] 1{spray Use 1 [facility] 137 mcg 2-02 } [place] in [facility] of (0.1 %) 00:00: each [place] nasal spray 00 nostril 2 Med ical (two) Branch times daily. Use in each nostril as directed fluticasone 2020-02 Yes [id number] 2{puff} Inhale 2 [facility] propionate 2-02 Puffs 2 [facility]y of (FLOVENT 00:00: (two) [place] [facility]) 44 00 times Medical mcg/actuati daily. Branch on inhaler Rinse mouth after each use. azelastine 2020-02 Yes [id number] 1{spray Use 1 [facility] 137 mcg 2-02 } [place] in [facility] of (0.1 %) 00:00: each [place] nasal spray 00 nostril 2 Med ical (two) Branch times daily. Use in each nostril as directed fluticasone 2020-02 Yes [id number] 2{puff} Inhale 2 [facility] propionate 2-02 Puffs 2 [facility]y of (FLOVENT 00:00: (two) [place] [facility]) 44 00 times Medical mcg/actuati daily. Branch on inhaler Rinse mouth after each use. azelastine 2020-02 Yes [id number] 1{spray Use 1 [facility] 137 mcg 2-02 } [place] in [facility] of (0.1 %) 00:00: each [place] nasal spray 00 nostril 2 Med ical (two) Branch times daily. Use in each nostril as directed fluticasone 2020-02 Yes [id number] 2{puff} Inhale 2 [facility] propionate 2-02 Puffs 2 [facility]y of (FLOVENT 00:00: (two) [place] [facility]) 44 00 times Medical mcg/actuati daily. Branch on inhaler Rinse mouth after each use. azelastine 2020-02 Yes [id number] 1{spray Use 1 [facility] 137 mcg 2-02 } [place] in [facility] of (0.1 %) 00:00: each [place] nasal spray 00 nostril 2 Med ical (two) Branch times daily. Use in each nostril as directed fluticasone 2020-02 Yes [id number] 2{puff} Inhale 2 [facility] propionate 2-02 Puffs 2 [facility]y of (FLOVENT 00:00: (two) [place] [facility]) 44 00 times Medical mcg/actuati daily. Branch on inhaler Rinse mouth after each use. azelastine 2020-02 Yes [id number] 1{spray Use 1 [facility] 137 mcg 2-02 } [place] in [facility] of (0.1 %) 00:00: each [place] nasal spray 00 nostril 2 Med ical (two) Branch times daily. Use in each nostril as directed fluticasone 2020-02 Yes [id number] 2{puff} Inhale 2 [facility] propionate 2-02 Puffs 2 [facility]y of (FLOVENT 00:00: (two) [place] [facility]) 44 00 times Medical mcg/actuati daily. Branch on inhaler Rinse mouth after each use. azelastine 2020-02 Yes [id number] 1{spray Use 1 [facility] 137 mcg 2-02 } [place] in [facility] of (0.1 %) 00:00: each [place] nasal spray 00 nostril 2 Med ical (two) Branch times daily. Use in each nostril as directed fluticasone 2020-02 Yes [id number] 2{puff} Inhale 2 [facility] propionate 2-02 Puffs 2 [facility]y of (FLOVENT 00:00: (two) [place] [facility]) 44 00 times Medical mcg/actuati daily. Branch on inhaler Rinse mouth after each use. azelastine 2020-02 Yes [id number] 1{spray Use 1 [facility] 137 mcg 2-02 } [place] in [facility] of (0.1 %) 00:00: each [place] nasal spray 00 nostril 2 Med ical (two) Branch times daily. Use in each nostril as directed fluticasone 2020-02 Yes [id number] 2{puff} Inhale 2 [facility] propionate 2-02 Puffs 2 [facility]y of (FLOVENT 00:00: (two) [place] [facility]) 44 00 times Medical mcg/actuati daily. Branch on inhaler Rinse mouth after each use. azelastine 2020-02 Yes [id number] 1{spray Use 1 [facility] 137 mcg 2-02 } [place] in [facility] of (0.1 %) 00:00: each [place] nasal spray 00 nostril 2 Med ical (two) Branch times daily. Use in each nostril as directed fluticasone 2020-02 Yes [id number] 2{puff} Inhale 2 [facility] propionate 2-02 Puffs 2 [facility]y of (FLOVENT 00:00: (two) [place] [facility]FA) 44 00 times Medical mcg/actuati daily. Branch on inhaler Rinse mouth after each use. azelastine 2020-02 Yes [id number] 1{spray Use 1 [facility] 137 mcg 2-02 } [place] in [facility] of (0.1 %) 00:00: each [place] nasal spray 00 nostril 2 Med ical (two) Branch times daily. Use in each nostril as directed fluticasone 2020-02 Yes [id number] 2{puff} Inhale 2 [facility] propionate 2-02 Puffs 2 [facility]y of (FLOVENT 00:00: (two) [place] [facility]FA) 44 00 times Medical mcg/actuati daily. Branch on inhaler Rinse mouth after each use. azelastine 2020-02 Yes [id number] 1{spray Use 1 [facility] 137 mcg 2-02 } [place] in [facility] of (0.1 %) 00:00: each [place] nasal spray 00 nostril 2 Med ical (two) Branch times daily. Use in each nostril as directed fluticasone 2020-02 Yes [id number] 2{puff} Inhale 2 [facility] propionate 2-02 Puffs 2 [facility]y of (FLOVENT 00:00: (two) [place] [facility]) 44 00 times Medical mcg/actuati daily. Branch on inhaler Rinse mouth after each use. azelastine 2020-02 Yes [id number] 1{spray Use 1 [facility] 137 mcg 2-02 } [place] in [facility] of (0.1 %) 00:00: each [place] nasal spray 00 nostril 2 Med ical (two) Branch times daily. Use in each nostril as directed fluticasone 2020-02 Yes [id number] 2{puff} Inhale 2 [facility] propionate 2-02 Puffs 2 [facility]y of (FLOVENT 00:00: (two) [place] [facility]FA) 44 00 times Medical mcg/actuati daily. Branch on inhaler Rinse mouth after each use. azelastine 2020-02 Yes [id number] 1{spray Use 1 [facility] 137 mcg 2-02 } [place] in [facility] of (0.1 %) 00:00: each [place] nasal spray 00 nostril 2 Med ical (two) Branch times daily. Use in each nostril as directed fluticasone 2020-02 Yes [id number] 2{puff} Inhale 2 [facility] propionate 2-02 Puffs 2 ity of (FLOVENT 00:00: (two) [place] [facility]FA) 44 00 times Medical mcg/actuati daily. Branch on inhaler Rinse mouth after each use. azelastine 2020-02 Yes [id number] 1{spray Use 1 [facility] 137 mcg 2-02 } [place] in [facility] of (0.1 %) 00:00: each [place] nasal spray 00 nostril 2 Med ical (two) Branch times daily. Use in each nostril as directed fluticasone 2020-02 Yes [id number] 2{puff} Inhale 2 [facility] propionate 2-02 Puffs 2 [facility]y of (FLOVENT 00:00: (two) [place] [facility]FA) 44 00 times Medical mcg/actuati daily. Branch on inhaler Rinse mouth after each use. azelastine 2020-02 Yes [id number] 1{spray Use 1 [facility] 137 mcg 2-02 } [place] in [facility] of (0.1 %) 00:00: each [place] nasal spray 00 nostril 2 Med ical (two) Branch times daily. Use in each nostril as directed fluticasone 2020-02 Yes [id number] 2{puff} Inhale 2 [facility] propionate 2-02 Puffs 2 ity of (FLOVENT 00:00: (two) [place] [facility]FA) 44 00 times Medical mcg/actuati daily. Branch on inhaler Rinse mouth after each use. azelastine 2020-02 Yes [id number] 1{spray Use 1 [facility] 137 mcg 2-02 } [place] in [facility] of (0.1 %) 00:00: each [place] nasal spray 00 nostril 2 Med ical (two) Branch times daily. Use in each nostril as directed fluticasone 2020-02 Yes [id number] 2{puff} Inhale 2 [facility] propionate 2-02 Puffs 2 ity of (FLOVENT 00:00: (two) [place] [facility]) 44 00 times Medical mcg/actuati daily. Branch on inhaler Rinse mouth after each use. azelastine 2020-02 Yes [id number] 1{spray Use 1 [facility] 137 mcg 2-02 } [place] in [facility] of (0.1 %) 00:00: each [place] nasal spray 00 nostril 2 Med ical (two) Branch times daily. Use in each nostril as directed fluticasone 2020-02 Yes [id number] 2{puff} Inhale 2 [facility] propionate 2-02 Puffs 2 ity of (FLOVENT 00:00: (two) [place] [facility]) 44 00 times Medical mcg/actuati daily. Branch on inhaler Rinse mouth after each use. azelastine 2020-02 Yes [id number] 1{spray Use 1 [facility] 137 mcg 2-02 } [place] in [facility] of (0.1 %) 00:00: each [place] nasal spray 00 nostril 2 Med ical (two) Branch times daily. Use in each nostril as directed fluticasone 2020-02 Yes [id number] 2{puff} Inhale 2 [facility] propionate 2-02 Puffs 2 ity of (FLOVENT 00:00: (two) [place] [facility]) 44 00 times Medical mcg/actuati daily. Branch on inhaler Rinse mouth after each use. azelastine 2020-02 Yes [id number] 1{spray Use 1 [facility] 137 mcg 2-02 } [place] in [facility] of (0.1 %) 00:00: each [place] nasal spray 00 nostril 2 Med ical (two) Branch times daily. Use in each nostril as directed fluticasone 2020-02 Yes [id number] 2{puff} Inhale 2 [facility] propionate 2-02 Puffs 2 [facility]y of (FLOVENT 00:00: (two) [place] [facility]) 44 00 times Medical mcg/actuati daily. Branch on inhaler Rinse mouth after each use. azelastine 2020-02 Yes [id number] 1{spray Use 1 [facility] 137 mcg 2-02 } [place] in [facility] of (0.1 %) 00:00: each [place] nasal spray 00 nostril 2 Med ical (two) Branch times daily. Use in each nostril as directed fluticasone 2020-02 Yes [id number] 2{puff} Inhale 2 [facility] propionate 2-02 Puffs 2 [facility]y of (FLOVENT 00:00: (two) [place] [facility]) 44 00 times Medical mcg/actuati daily. Branch on inhaler Rinse mouth after each use. azelastine 2020-02 Yes [id number] 1{spray Use 1 [facility] 137 mcg 2-02 } [place] in [facility] of (0.1 %) 00:00: each [place] nasal spray 00 nostril 2 Med ical (two) Branch times daily. Use in each nostril as directed fluticasone 2020-02 Yes [id number] 2{puff} Inhale 2 [facility] propionate 2-02 Puffs 2 [facility]y of (FLOVENT 00:00: (two) [place] [facility]) 44 00 times Medical mcg/actuati daily. Branch on inhaler Rinse mouth after each use. azelastine 2020-02 Yes [id number] 1{spray Use 1 [facility] 137 mcg 2-02 } [place] in [facility] of (0.1 %) 00:00: each [place] nasal spray 00 nostril 2 Med ical (two) Branch times daily. Use in each nostril as directed fluticasone 2020-02 Yes [id number] 2{puff} Inhale 2 [facility] propionate 2-02 Puffs 2 [facility]y of (FLOVENT 00:00: (two) [place] [facility]) 44 00 times Medical mcg/actuati daily. Branch on inhaler Rinse mouth after each use. azelastine 2020-02 Yes [id number] 1{spray Use 1 [facility] 137 mcg 2-02 } [place] in [facility] of (0.1 %) 00:00: each [place] nasal spray 00 nostril 2 Med ical (two) Branch times daily. Use in each nostril as directed fluticasone 2020-02 Yes [id number] 2{puff} Inhale 2 [facility] propionate 2-02 Puffs 2 ity of (FLOVENT 00:00: (two) [place] [facility]) 44 00 times Medical mcg/actuati daily. Branch on inhaler Rinse mouth after each use. azelastine 2020-02 Yes [id number] 1{spray Use 1 [facility] 137 mcg 2-02 } [place] in [facility] of (0.1 %) 00:00: each [place] nasal spray 00 nostril 2 Med ical (two) Branch times daily. Use in each nostril as directed fluticasone 2020-02 Yes [id number] 2{puff} Inhale 2 [facility] propionate 2-02 Puffs 2 ity of (FLOVENT 00:00: (two) [place] [facility]) 44 00 times Medical mcg/actuati daily. Branch on inhaler Rinse mouth after each use. azelastine 2020-02 Yes [id number] 1{spray Use 1 [facility] 137 mcg 2-02 } [place] in [facility] of (0.1 %) 00:00: each [place] nasal spray 00 nostril 2 Med ical (two) Branch times daily. Use in each nostril as directed fluticasone 2020-02 Yes [id number] 2{puff} Inhale 2 [facility] propionate 2-02 Puffs 2 [facility]y of (FLOVENT 00:00: (two) [place] [facility]) 44 00 times Medical mcg/actuati daily. Branch on inhaler Rinse mouth after each use. azelastine 2020-02 Yes [id number] 1{spray Use 1 [facility] 137 mcg 2-02 } [place] in [facility] of (0.1 %) 00:00: each [place] nasal spray 00 nostril 2 Med ical (two) Branch times daily. Use in each nostril as directed fluticasone 2020-02 Yes [id number] 2{puff} Inhale 2 [facility] propionate 2-02 Puffs 2 [facility]y of (FLOVENT 00:00: (two) [place] [facility]) 44 00 times Medical mcg/actuati daily. Branch on inhaler Rinse mouth after each use. azelastine 2020-02 Yes [id number] 1{spray Use 1 [facility] 137 mcg 2-02 } [place] in [facility] of (0.1 %) 00:00: each [place] nasal spray 00 nostril 2 Med ical (two) Branch times daily. Use in each nostril as directed fluticasone 2020-02 Yes [id number] 2{puff} Inhale 2 [facility] propionate 2-02 Puffs 2 [facility]y of (FLOVENT 00:00: (two) [place] [facility]) 44 00 times Medical mcg/actuati daily. Branch on inhaler Rinse mouth after each use. azelastine 2020-02 Yes [id number] 1{spray Use 1 [facility] 137 mcg 2-02 } [place] in [facility] of (0.1 %) 00:00: each [place] nasal spray 00 nostril 2 Med ical (two) Branch times daily. Use in each nostril as directed fluticasone 2020-02 Yes [id number] 2{puff} Inhale 2 [facility] propionate 2-02 Puffs 2 ity of (FLOVENT 00:00: (two) [place] [facility]) 44 00 times Medical mcg/actuati daily. Branch on inhaler Rinse mouth after each use. azelastine 2020-02 Yes [id number] 1{spray Use 1 [facility] 137 mcg 2-02 } [place] in [facility] of (0.1 %) 00:00: each [place] nasal spray 00 nostril 2 Med ical (two) Branch times daily. Use in each nostril as directed fluticasone 2020-02 Yes [id number] 2{puff} Inhale 2 [facility] propionate 2-02 Puffs 2 ity of (FLOVENT 00:00: (two) [place] [facility]FA) 44 00 times Medical mcg/actuati daily. Branch on inhaler Rinse mouth after each use. azelastine 2020-02 Yes [id number] 1{spray Use 1 [facility] 137 mcg 2-02 } [place] in [facility] of (0.1 %) 00:00: each [place] nasal spray 00 nostril 2 Med ical (two) Branch times daily. Use in each nostril as directed fluticasone 2020-02 Yes [id number] 2{puff} Inhale 2 [facility] propionate 2-02 Puffs 2 [facility]y of (FLOVENT 00:00: (two) [place] [facility]FA) 44 00 times Medical mcg/actuati daily. Branch on inhaler Rinse mouth after each use. azelastine 2020-02 Yes [id number] 1{spray Use 1 [facility] 137 mcg 2-02 } [place] in [facility] of (0.1 %) 00:00: each [place] nasal spray 00 nostril 2 Med ical (two) Branch times daily. Use in each nostril as directed fluticasone 2020-02 Yes [id number] 2{puff} Inhale 2 [facility] propionate 2-02 Puffs 2 ity of (FLOVENT 00:00: (two) [place] [facility]FA) 44 00 times Medical mcg/actuati daily. Branch on inhaler Rinse mouth after each use. azelastine 2020-02 Yes [id number] 1{spray Use 1 [facility] 137 mcg 2-02 } [place] in [facility] of (0.1 %) 00:00: each [place] nasal spray 00 nostril 2 Med ical (two) Branch times daily. Use in each nostril as directed fluticasone 2020-02 Yes [id number] 2{puff} Inhale 2 [facility] propionate 2-02 Puffs 2 ity of (FLOVENT 00:00: (two) [place] [facility]FA) 44 00 times Medical mcg/actuati daily. Branch on inhaler Rinse mouth after each use. azelastine 2020-02 Yes [id number] 1{spray Use 1 [facility] 137 mcg 2-02 } [place] in [facility] of (0.1 %) 00:00: each [place] nasal spray 00 nostril 2 Med ical (two) Branch times daily. Use in each nostril as directed fluticasone 2020-02 Yes [id number] 2{puff} Inhale 2 [facility] propionate 2-02 Puffs 2 [facility]y of (FLOVENT 00:00: (two) [place] [facility]FA) 44 00 times Medical mcg/actuati daily. Branch on inhaler Rinse mouth after each use. azelastine 2020-02 Yes [id number] 1{spray Use 1 [facility] 137 mcg 2-02 } [place] in [facility] of (0.1 %) 00:00: each [place] nasal spray 00 nostril 2 Med ical (two) Branch times daily. Use in each nostril as directed fluticasone 2020-02 Yes [id number] 2{puff} Inhale 2 [facility] propionate 2-02 Puffs 2 [facility]y of (FLOVENT 00:00: (two) [place] [facility]FA) 44 00 times Medical mcg/actuati daily. Branch on inhaler Rinse mouth after each use. azelastine 2020-02 Yes [id number] 1{spray Use 1 [facility] 137 mcg 2-02 } [place] in [facility] of (0.1 %) 00:00: each [place] nasal spray 00 nostril 2 Med ical (two) Branch times daily. Use in each nostril as directed fluticasone 2020-02 Yes [id number] 2{puff} Inhale 2 [facility] propionate 2-02 Puffs 2 [facility]y of (FLOVENT 00:00: (two) [place] [facility]FA) 44 00 times Medical mcg/actuati daily. Branch on inhaler Rinse mouth after each use. azelastine 2020-02 Yes [id number] 1{spray Use 1 [facility] 137 mcg 2-02 } [place] in [facility] of (0.1 %) 00:00: each [place] nasal spray 00 nostril 2 Med ical (two) Branch times daily. Use in each nostril as directed fluticasone 2020-02 Yes [id number] 2{puff} Inhale 2 [facility] propionate 2-02 Puffs 2 ity of (FLOVENT 00:00: (two) [place] [facility]FA) 44 00 times Medical mcg/actuati daily. Branch on inhaler Rinse mouth after each use. azelastine 2020-02 Yes [id number] 1{spray Use 1 [facility] 137 mcg 2-02 } [place] in [facility] of (0.1 %) 00:00: each [place] nasal spray 00 nostril 2 Med ical (two) Branch times daily. Use in each nostril as directed fluticasone 2020-02 Yes [id number] 2{puff} Inhale 2 [facility] propionate 2-02 Puffs 2 ity of (FLOVENT 00:00: (two) [place] [facility]FA) 44 00 times Medical mcg/actuati daily. Branch on inhaler Rinse mouth after each use. azelastine 2020-02 Yes [id number] 1{spray Use 1 [facility] 137 mcg 2-02 } [place] in [facility] of (0.1 %) 00:00: each [place] nasal spray 00 nostril 2 Med ical (two) Branch times daily. Use in each nostril as directed fluticasone 2020-02 Yes [id number] 2{puff} Inhale 2 [facility] propionate 2-02 Puffs 2 ity of (FLOVENT 00:00: (two) [place] HFA) 44 00 times Medical mcg/actuati daily. Branch on inhaler Rinse mouth after each use. azelastine 2020-02 Yes [id number] 1{spray Use 1 [facility] 137 mcg 2-02 } [place] in [facility]y of (0.1 %) 00:00: each [place] nasal spray 00 nostril 2 Med ical (two) Branch times daily. Use in each nostril as directed fluticasone 2020-02 Yes [id number] 2{puff} Inhale 2 [facility] propionate 2-02 Puffs 2 ity of (FLOVENT 00:00: (two) [place] HFA) 44 00 times Medical mcg/actuati daily. Branch on inhaler Rinse mouth after each use. azelastine 2020-02 Yes [id number] 1{spray Use 1 [facility] 137 mcg 2-02 } [place] in [facility] of (0.1 %) 00:00: each [place] nasal spray 00 nostril 2 Med ical (two) Branch times daily. Use in each nostril as directed fluticasone 2020-02 Yes [id number] 2{puff} Inhale 2 [facility] propionate 2-02 Puffs 2 ity of (FLOVENT 00:00: (two) [place] HFA) 44 00 times Medical mcg/actuati daily. Branch on inhaler Rinse mouth after each use. azelastine 2020-02 Yes [id number] 1{spray Use 1 [facility] 137 mcg 2-02 } [place] in [facility]y of (0.1 %) 00:00: each [place] nasal spray 00 nostril 2 Med ical (two) Branch times daily. Use in each nostril as directed fluticasone 2020-02 Yes [id number] 2{puff} Inhale 2 [facility] propionate 2-02 Puffs 2 ity of (FLOVENT 00:00: (two) [place] HFA) 44 00 times Medical mcg/actuati daily. Branch on inhaler Rinse mouth after each use. azelastine 2020-02 Yes [id number] 1{spray Use 1 [facility] 137 mcg 2-02 } [place] in [facility]y of (0.1 %) 00:00: each [place] nasal spray 00 nostril 2 Med ical (two) Branch times daily. Use in each nostril as directed fluticasone 2020-02 Yes [id number] 2{puff} Inhale 2 [facility] propionate 2-02 Puffs 2 ity of (FLOVENT 00:00: (two) [place] HFA) 44 00 times Medical mcg/actuati daily. Branch on inhaler Rinse mouth after each use. azelastine 2020-02 Yes [id number] 1{spray Use 1 [facility] 137 mcg 2-02 } [place] in [facility]y of (0.1 %) 00:00: each [place] nasal spray 00 nostril 2 Med ical (two) Branch times daily. Use in each nostril as directed fluticasone 2020-02 Yes [id number] 2{puff} Inhale 2 [facility] propionate 2-02 Puffs 2 ity of (FLOVENT 00:00: (two) [place] HFA) 44 00 times Medical mcg/actuati daily. Branch on inhaler Rinse mouth after each use. azelastine 2020-02 Yes [id number] 1{spray Use 1 [facility] 137 mcg 2-02 } [place] in [facility]y of (0.1 %) 00:00: each [place] nasal spray 00 nostril 2 Med ical (two) Branch times daily. Use in each nostril as directed fluticasone 2020-02 Yes [id number] 2{puff} Inhale 2 [facility] propionate 2-02 Puffs 2 [facility]y of (FLOVENT 00:00: (two) [place] HFA) 44 00 times Medical mcg/actuati daily. Branch on inhaler Rinse mouth after each use. azelastine 2020-02 Yes [id number] 1{spray Use 1 [facility] 137 mcg 2-02 } [place] in [facility] of (0.1 %) 00:00: each [place] nasal spray 00 nostril 2 Med ical (two) Branch times daily. Use in each nostril as directed fluticasone 2020-02 Yes [id number] 2{puff} Inhale 2 [facility] propionate 2-02 Puffs 2 ity of (FLOVENT 00:00: (two) [place] HFA) 44 00 times Medical mcg/actuati daily. Branch on inhaler Rinse mouth after each use. azelastine 2020-02 Yes [id number] 1{spray Use 1 [facility] 137 mcg 2-02 } [place] in [facility]y of (0.1 %) 00:00: each [place] nasal spray 00 nostril 2 Med ical (two) Branch times daily. Use in each nostril as directed fluticasone 2020-02 Yes [id number] 2{puff} Inhale 2 [facility] propionate 2-02 Puffs 2 ity of (FLOVENT 00:00: (two) [place] [facility]FA) 44 00 times Medical mcg/actuati daily. Branch on inhaler Rinse mouth after each use. azelastine 2020-02 Yes [id number] 1{spray Use 1 [facility] 137 mcg 2-02 } [place] in [facility] of (0.1 %) 00:00: each [place] nasal spray 00 nostril 2 Med ical (two) Branch times daily. Use in each nostril as directed fluticasone 2020-02 Yes [id number] 2{puff} Inhale 2 [facility] propionate 2-02 Puffs 2 [facility]y of (FLOVENT 00:00: (two) [place] HFA) 44 00 times Medical mcg/actuati daily. Branch on inhaler Rinse mouth after each use. azelastine 2020-02 Yes [id number] 1{spray Use 1 [facility] 137 mcg 2-02 } [place] in [facility] of (0.1 %) 00:00: each [place] nasal spray 00 nostril 2 Med ical (two) Branch times daily. Use in each nostril as directed fluticasone 2020-02 Yes [id number] 2{puff} Inhale 2 [facility] propionate 2-02 Puffs 2 [facility]y of (FLOVENT 00:00: (two) [place] HFA) 44 00 times Medical mcg/actuati daily. Branch on inhaler Rinse mouth after each use. azelastine 2020-02 Yes [id number] 1{spray Use 1 [facility] 137 mcg 2-02 } [place] in [facility] of (0.1 %) 00:00: each [place] nasal spray 00 nostril 2 Med ical (two) Branch times daily. Use in each nostril as directed fluticasone 2020-02 Yes [id number] 2{puff} Inhale 2 [facility] propionate 2-02 Puffs 2 [facility]y of (FLOVENT 00:00: (two) [place] HFA) 44 00 times Medical mcg/actuati daily. Branch on inhaler Rinse mouth after each use. azelastine 2020-02 Yes [id number] 1{spray Use 1 [facility] 137 mcg 2-02 } [place] in [facility] of (0.1 %) 00:00: each [place] nasal spray 00 nostril 2 Med ical (two) Branch times daily. Use in each nostril as directed fluticasone 2020-02 Yes [id number] 2{puff} Inhale 2 [facility] propionate 2-02 Puffs 2 [facility]y of (FLOVENT 00:00: (two) [place] HFA) 44 00 times Medical mcg/actuati daily. Branch on inhaler Rinse mouth after each use. azelastine 2020-02 Yes [id number] 1{spray Use 1 [facility] 137 mcg 2-02 } [place] in [facility] of (0.1 %) 00:00: each [place] nasal spray 00 nostril 2 Med ical (two) Branch times daily. Use in each nostril as directed fluticasone 2020-02 Yes [id number] 2{puff} Inhale 2 [facility] propionate 2-02 Puffs 2 ity of (FLOVENT 00:00: (two) [place] HFA) 44 00 times Medical mcg/actuati daily. Branch on inhaler Rinse mouth after each use. azelastine 2020-02 Yes [id number] 1{spray Use 1 [facility] 137 mcg 2-02 } [place] in [facility] of (0.1 %) 00:00: each [place] nasal spray 00 nostril 2 Med ical (two) Branch times daily. Use in each nostril as directed fluticasone 2020-02 Yes [id number] 2{puff} Inhale 2 [facility] propionate 2-02 Puffs 2 [facility]y of (FLOVENT 00:00: (two) [place] HFA) 44 00 times Medical mcg/actuati daily. Branch on inhaler Rinse mouth after each use. azelastine 2020-02 Yes [id number] 1{spray Use 1 [facility] 137 mcg 2-02 } [place] in [facility] of (0.1 %) 00:00: each [place] nasal spray 00 nostril 2 Med ical (two) Branch times daily. Use in each nostril as directed fluticasone 2020-02 Yes [id number] 2{puff} Inhale 2 [facility] propionate 2-02 Puffs 2 ity of (FLOVENT 00:00: (two) [place] HFA) 44 00 times Medical mcg/actuati daily. Branch on inhaler Rinse mouth after each use. azelastine 2020-02 Yes [id number] 1{spray Use 1 [facility] 137 mcg 2-02 } [place] in [facility] of (0.1 %) 00:00: each [place] nasal spray 00 nostril 2 Med ical (two) Branch times daily. Use in each nostril as directed fluticasone 2020-02 Yes [id number] 2{puff} Inhale 2 [facility] propionate 2-02 Puffs 2 ity of (FLOVENT 00:00: (two) [place] HFA) 44 00 times Medical mcg/actuati daily. Branch on inhaler Rinse mouth after each use. azelastine 2020-02 Yes [id number] 1{spray Use 1 [facility] 137 mcg 2-02 } [place] in [facility]y of (0.1 %) 00:00: each [place] nasal spray 00 nostril 2 Med ical (two) Branch times daily. Use in each nostril as directed fluticasone 2020-02 Yes [id number] 2{puff} Inhale 2 [facility] propionate 2-02 Puffs 2 ity of (FLOVENT 00:00: (two) [place] HFA) 44 00 times Medical mcg/actuati daily. Branch on inhaler Rinse mouth after each use. azelastine 2020-02 Yes [id number] 1{spray Use 1 [facility] 137 mcg 2-02 } [place] in [facility] of (0.1 %) 00:00: each [place] nasal spray 00 nostril 2 Med ical (two) Branch times daily. Use in each nostril as directed fluticasone 2020-02 Yes [id number] 2{puff} Inhale 2 [facility] propionate 2-02 Puffs 2 ity of (FLOVENT 00:00: (two) [place] HFA) 44 00 times Medical mcg/actuati daily. Branch on inhaler Rinse mouth after each use. azelastine 2020-02 Yes [id number] 1{spray Use 1 [facility] 137 mcg 2-02 } [place] in [facility] of (0.1 %) 00:00: each [place] nasal spray 00 nostril 2 Med ical (two) Branch times daily. Use in each nostril as directed fluticasone 2020-02 Yes [id number] 2{puff} Inhale 2 [facility] propionate 2-02 Puffs 2 ity of (FLOVENT 00:00: (two) [place] HFA) 44 00 times Medical mcg/actuati daily. Branch on inhaler Rinse mouth after each use. azelastine 2020-02 Yes [id number] 1{spray Use 1 [facility] 137 mcg 2-02 } [place] in [facility]y of (0.1 %) 00:00: each [place] nasal spray 00 nostril 2 Med ical (two) Branch times daily. Use in each nostril as directed fluticasone 2020-02 Yes [id number] 2{puff} Inhale 2 [facility] propionate 2-02 Puffs 2 ity of (FLOVENT 00:00: (two) [place] HFA) 44 00 times Medical mcg/actuati daily. Branch on inhaler Rinse mouth after each use. azelastine 2020-02 Yes [id number] 1{spray Use 1 [facility] 137 mcg 2-02 } [place] in [facility]y of (0.1 %) 00:00: each [place] nasal spray 00 nostril 2 Med ical (two) Branch times daily. Use in each nostril as directed fluticasone 2020-02 Yes [id number] 2{puff} Inhale 2 [facility] propionate 2-02 Puffs 2 ity of (FLOVENT 00:00: (two) [place] HFA) 44 00 times Medical mcg/actuati daily. Branch on inhaler Rinse mouth after each use. azelastine 2020-02 Yes [id number] 1{spray Use 1 [facility] 137 mcg 2-02 } [place] in [facility]y of (0.1 %) 00:00: each [place] nasal spray 00 nostril 2 Med ical (two) Branch times daily. Use in each nostril as directed fluticasone 2020-02 Yes [id number] 2{puff} Inhale 2 [facility] propionate 2-02 Puffs 2 ity of (FLOVENT 00:00: (two) [place] HFA) 44 00 times Medical mcg/actuati daily. Branch on inhaler Rinse mouth after each use. azelastine 2020-02 Yes [id number] 1{spray Use 1 [facility] 137 mcg 2-02 } [place] in [facility]y of (0.1 %) 00:00: each [place] nasal spray 00 nostril 2 Med ical (two) Branch times daily. Use in each nostril as directed fluticasone 2020-02 Yes [id number] 2{puff} Inhale 2 [facility] propionate 2-02 Puffs 2 ity of (FLOVENT 00:00: (two) [place] HFA) 44 00 times Medical mcg/actuati daily. Branch on inhaler Rinse mouth after each use. azelastine 2020-02 Yes [id number] 1{spray Use 1 [facility] 137 mcg 2-02 } [place] in [facility]y of (0.1 %) 00:00: each [place] nasal spray 00 nostril 2 Med ical (two) Branch times daily. Use in each nostril as directed fluticasone 2020-02 Yes [id number] 2{puff} Inhale 2 [facility] propionate 2-02 Puffs 2 ity of (FLOVENT 00:00: (two) [place] HFA) 44 00 times Medical mcg/actuati daily. Branch on inhaler Rinse mouth after each use. azelastine 2020-02 Yes [id number] 1{spray Use 1 [facility] 137 mcg 2-02 } [place] in [facility] of (0.1 %) 00:00: each [place] nasal spray 00 nostril 2 Med ical (two) Branch times daily. Use in each nostril as directed fluticasone 2020-02 Yes [id number] 2{puff} Inhale 2 [facility] propionate 2-02 Puffs 2 ity of (FLOVENT 00:00: (two) [place] HFA) 44 00 times Medical mcg/actuati daily. Branch on inhaler Rinse mouth after each use. azelastine 2020-02 Yes [id number] 1{spray Use 1 [facility] 137 mcg 2-02 } [place] in [facility] of (0.1 %) 00:00: each [place] nasal spray 00 nostril 2 Med ical (two) Branch times daily. Use in each nostril as directed fluticasone 2020-02 Yes [id number] 2{puff} Inhale 2 [facility] propionate 2-02 Puffs 2 ity of (FLOVENT 00:00: (two) [place] HFA) 44 00 times Medical mcg/actuati daily. Branch on inhaler Rinse mouth after each use. azelastine 2020-02 Yes [id number] 1{spray Use 1 [facility] 137 mcg 2-02 } [place] in [facility]y of (0.1 %) 00:00: each [place] nasal spray 00 nostril 2 Med ical (two) Branch times daily. Use in each nostril as directed fluticasone 2020-02 Yes [id number] 2{puff} Inhale 2 [facility] propionate 2-02 Puffs 2 ity of (FLOVENT 00:00: (two) [place] HFA) 44 00 times Medical mcg/actuati daily. Branch on inhaler Rinse mouth after each use. azelastine 2020-02 Yes [id number] 1{spray Use 1 [facility] 137 mcg 2-02 } [place] in [facility] of (0.1 %) 00:00: each [place] nasal spray 00 nostril 2 Med ical (two) Branch times daily. Use in each nostril as directed fluticasone 2020-02 Yes [id number] 2{puff} Inhale 2 [facility] propionate 2-02 Puffs 2 ity of (FLOVENT 00:00: (two) [place] HFA) 44 00 times Medical mcg/actuati daily. Branch on inhaler Rinse mouth after each use. azelastine 2020-02 Yes [id number] 1{spray Use 1 [facility] 137 mcg 2-02 } [place] in [facility] of (0.1 %) 00:00: each [place] nasal spray 00 nostril 2 Med ical (two) Branch times daily. Use in each nostril as directed fluticasone 2020-02 Yes [id number] 2{puff} Inhale 2 [facility] propionate 2-02 Puffs 2 ity of (FLOVENT 00:00: (two) [place] HFA) 44 00 times Medical mcg/actuati daily. Branch on inhaler Rinse mouth after each use. azelastine 2020-02 Yes [id number] 1{spray Use 1 [facility] 137 mcg 2-02 } [place] in [facility]y of (0.1 %) 00:00: each [place] nasal spray 00 nostril 2 Med ical (two) Branch times daily. Use in each nostril as directed fluticasone 2020-02 Yes [id number] 2{puff} Inhale 2 [facility] propionate 2-02 Puffs 2 ity of (FLOVENT 00:00: (two) [place] HFA) 44 00 times Medical mcg/actuati daily. Branch on inhaler Rinse mouth after each use. azelastine 2020-02 Yes [id number] 1{spray Use 1 [facility] 137 mcg 2-02 } [place] in [facility] of (0.1 %) 00:00: each [place] nasal spray 00 nostril 2 Med ical (two) Branch times daily. Use in each nostril as directed fluticasone 2020-02 Yes [id number] 2{puff} Inhale 2 [facility] propionate 2-02 Puffs 2 ity of (FLOVENT 00:00: (two) [place] HFA) 44 00 times Medical mcg/actuati daily. Branch on inhaler Rinse mouth after each use. azelastine 2020-02 Yes [id number] 1{spray Use 1 [facility] 137 mcg 2-02 } [place] in [facility] of (0.1 %) 00:00: each [place] nasal spray 00 nostril 2 Med ical (two) Branch times daily. Use in each nostril as directed fluticasone 2020-02 Yes [id number] 2{puff} Inhale 2 [facility] propionate 2-02 Puffs 2 ity of (FLOVENT 00:00: (two) [place] HFA) 44 00 times Medical mcg/actuati daily. Branch on inhaler Rinse mouth after each use. azelastine 2020-02 Yes [id number] 1{spray Use 1 [facility] 137 mcg 2-02 } [place] in [facility] of (0.1 %) 00:00: each [place] nasal spray 00 nostril 2 Med ical (two) Branch times daily. Use in each nostril as directed fluticasone 2020-02 Yes [id number] 2{puff} Inhale 2 [facility] propionate 2-02 Puffs 2 ity of (FLOVENT 00:00: (two) [place] HFA) 44 00 times Medical mcg/actuati daily. Branch on inhaler Rinse mouth after each use. azelastine 2020-02 Yes [id number] 1{spray Use 1 [facility] 137 mcg 2-02 } [place] in [facility]y of (0.1 %) 00:00: each [place] nasal spray 00 nostril 2 Med ical (two) Branch times daily. Use in each nostril as directed fluticasone 2020-02 Yes [id number] 2{puff} Inhale 2 [facility] propionate 2-02 Puffs 2 ity of (FLOVENT 00:00: (two) [place] HFA) 44 00 times Medical mcg/actuati daily. Branch on inhaler Rinse mouth after each use. azelastine 2020-02 Yes [id number] 1{spray Use 1 [facility] 137 mcg 2-02 } [place] in [facility] of (0.1 %) 00:00: each [place] nasal spray 00 nostril 2 Med ical (two) Branch times daily. Use in each nostril as directed fluticasone 2020-02 Yes [id number] 2{puff} Inhale 2 [facility] propionate 2-02 Puffs 2 ity of (FLOVENT 00:00: (two) [place] HFA) 44 00 times Medical mcg/actuati daily. Branch on inhaler Rinse mouth after each use. azelastine 2020-02 Yes [id number] 1{spray Use 1 [facility] 137 mcg 2-02 } [place] in [facility] of (0.1 %) 00:00: each [place] nasal spray 00 nostril 2 Med ical (two) Branch times daily. Use in each nostril as directed fluticasone 2020-02 Yes [id number] 2{puff} Inhale 2 [facility] propionate 2-02 Puffs 2 ity of (FLOVENT 00:00: (two) [place] HFA) 44 00 times Medical mcg/actuati daily. Branch on inhaler Rinse mouth after each use. azelastine 2020-02 Yes [id number] 1{spray Use 1 [facility] 137 mcg 2-02 } [place] in [facility]y of (0.1 %) 00:00: each [place] nasal spray 00 nostril 2 Med ical (two) Branch times daily. Use in each nostril as directed fluticasone 2020-02 Yes [id number] 2{puff} Inhale 2 [facility] propionate 2-02 Puffs 2 ity of (FLOVENT 00:00: (two) [place] HFA) 44 00 times Medical mcg/actuati daily. Branch on inhaler Rinse mouth after each use. azelastine 2020-02 Yes [id number] 1{spray Use 1 [facility] 137 mcg 2-02 } [place] in [facility]y of (0.1 %) 00:00: each [place] nasal spray 00 nostril 2 Med ical (two) Branch times daily. Use in each nostril as directed fluticasone 2020-02 Yes [id number] 2{puff} Inhale 2 [facility] propionate 2-02 Puffs 2 ity of (FLOVENT 00:00: (two) [place] HFA) 44 00 times Medical mcg/actuati daily. Branch on inhaler Rinse mouth after each use. azelastine 2020-02 Yes [id number] 1{spray Use 1 [facility] 137 mcg 2-02 } [place] in [facility]y of (0.1 %) 00:00: each [place] nasal spray 00 nostril 2 Med ical (two) Branch times daily. Use in each nostril as directed fluticasone 2020-02 Yes [id number] 2{puff} Inhale 2 [facility] propionate 2-02 Puffs 2 ity of (FLOVENT 00:00: (two) [place] HFA) 44 00 times Medical mcg/actuati daily. Branch on inhaler Rinse mouth after each use. azelastine 2020-02 Yes [id number] 1{spray Use 1 [facility] 137 mcg 2-02 } [place] in [facility]y of (0.1 %) 00:00: each [place] nasal spray 00 nostril 2 Med ical (two) Branch times daily. Use in each nostril as directed fluticasone 2020-02 Yes [id number] 2{puff} Inhale 2 [facility] propionate 2-02 Puffs 2 ity of (FLOVENT 00:00: (two) [place] HFA) 44 00 times Medical mcg/actuati daily. Branch on inhaler Rinse mouth after each use. azelastine 2020-02 Yes [id number] 1{spray Use 1 [facility] 137 mcg 2-02 } [place] in [facility]y of (0.1 %) 00:00: each [place] nasal spray 00 nostril 2 Med ical (two) Branch times daily. Use in each nostril as directed fluticasone 2020-02 Yes [id number] 2{puff} Inhale 2 [facility] propionate 2-02 Puffs 2 ity of (FLOVENT 00:00: (two) [place] HFA) 44 00 times Medical mcg/actuati daily. Branch on inhaler Rinse mouth after each use. mirtazapine 2020-02- No [id number] 7.5mg Take 1 [facility] 7.5 mg 2 07-15 tablet by ity of tablet 00:00: 00:00 mouth at [place] 00 :00 bedtime. Medical Branch mirtazapine 2020-02- No [id number] 7.5mg Take 1 [facility] 7.5 mg 03-17-15 tablet by ity of tablet 00:00: 00:00 mouth at [place] 00 :00 bedtime. Medical Branch albuterol Yes [id number] 2{puff} Inhale 2 [facility] (PROAIR 9-03 Puffs ity of HFA) 90 00:00: every 6 [place] mcg/actuati 00 (six) Medical on inhaler hours as Branc h needed for Wheezing or Shortness of Breath. albuterol Yes [id number] 2{puff} Inhale 2 [facility] (PROAIR 9-03 Puffs ity of HFA) 90 00:00: every 6 [place] mcg/actuati 00 (six) Medical on inhaler hours as Branc h needed for Wheezing or Shortness of Breath. albuterol Yes [id number] 2{puff} Inhale 2 [facility] (PROAIR 9-03 Puffs ity of HFA) 90 00:00: every 6 [place] mcg/actuati 00 (six) Medical on inhaler hours as Branc h needed for Wheezing or Shortness of Breath. albuterol Yes [id number] 2{puff} Inhale 2 [facility] (PROAIR 9-03 Puffs ity of HFA) 90 00:00: every 6 [place] mcg/actuati 00 (six) Medical on inhaler hours as Branc h needed for Wheezing or Shortness of Breath. albuterol Yes [id number] 2{puff} Inhale 2 [facility] (PROAIR 9-03 Puffs ity of HFA) 90 00:00: every 6 [place] mcg/actuati 00 (six) Medical on inhaler hours as Branc h needed for Wheezing or Shortness of Breath. albuterol Yes [id number] 2{puff} Inhale 2 [facility] (PROAIR 9-03 Puffs ity of HFA) 90 00:00: every 6 [place] mcg/actuati 00 (six) Medical on inhaler hours as Branc h needed for Wheezing or Shortness of Breath. albuterol 0 Yes [id number] 2{puff} Inhale 2 [facility] (PROAIR 9-03 Puffs ity of HFA) 90 00:00: every 6 [place] mcg/actuati 00 (six) Medical on inhaler hours as Branc h needed for Wheezing or Shortness of Breath. albuterol Yes [id number] 2{puff} Inhale 2 [facility] (PROAIR 9-03 Puffs ity of HFA) 90 00:00: every 6 [place] mcg/actuati 00 (six) Medical on inhaler hours as Branc h needed for Wheezing or Shortness of Breath. albuterol Yes [id number] 2{puff} Inhale 2 [facility] (PROAIR 9-03 Puffs ity of HFA) 90 00:00: every 6 [place] mcg/actuati 00 (six) Medical on inhaler hours as Branc h needed for Wheezing or Shortness of Breath. albuterol Yes [id number] 2{puff} Inhale 2 [facility] (PROAIR 9-03 Puffs ity of HFA) 90 00:00: every 6 [place] mcg/actuati 00 (six) Medical on inhaler hours as Branc h needed for Wheezing or Shortness of Breath. albuterol Yes [id number] 2{puff} Inhale 2 [facility] (PROAIR 9-03 Puffs ity of HFA) 90 00:00: every 6 [place] mcg/actuati 00 (six) Medical on inhaler hours as Branc h needed for Wheezing or Shortness of Breath. albuterol Yes [id number] 2{puff} Inhale 2 [facility] (PROAIR 9-03 Puffs ity of HFA) 90 00:00: every 6 [place] mcg/actuati 00 (six) Medical on inhaler hours as Branc h needed for Wheezing or Shortness of Breath. albuterol Yes [id number] 2{puff} Inhale 2 [facility] (PROAIR 9-03 Puffs ity of HFA) 90 00:00: every 6 [place] mcg/actuati 00 (six) Medical on inhaler hours as Branc h needed for Wheezing or Shortness of Breath. albuterol Yes [id number] 2{puff} Inhale 2 [facility] (PROAIR 9-03 Puffs ity of HFA) 90 00:00: every 6 [place] mcg/actuati 00 (six) Medical on inhaler hours as Branc h needed for Wheezing or Shortness of Breath. albuterol Yes [id number] 2{puff} Inhale 2 [facility] (PROAIR 9-03 Puffs ity of HFA) 90 00:00: every 6 [place] mcg/actuati 00 (six) Medical on inhaler hours as Branc h needed for Wheezing or Shortness of Breath. albuterol Yes [id number] 2{puff} Inhale 2 [facility] (PROAIR 9-03 Puffs ity of HFA) 90 00:00: every 6 [place] mcg/actuati 00 (six) Medical on inhaler hours as Branc h needed for Wheezing or Shortness of Breath. albuterol Yes [id number] 2{puff} Inhale 2 [facility] (PROAIR 9-03 Puffs ity of HFA) 90 00:00: every 6 [place] mcg/actuati 00 (six) Medical on inhaler hours as Branc h needed for Wheezing or Shortness of Breath. albuterol Yes [id number] 2{puff} Inhale 2 [facility] (PROAIR 9-03 Puffs ity of HFA) 90 00:00: every 6 [place] mcg/actuati 00 (six) Medical on inhaler hours as Branc h needed for Wheezing or Shortness of Breath. albuterol Yes [id number] 2{puff} Inhale 2 [facility] (PROAIR 9-03 Puffs ity of HFA) 90 00:00: every 6 [place] mcg/actuati 00 (six) Medical on inhaler hours as Branc h needed for Wheezing or Shortness of Breath. albuterol Yes [id number] 2{puff} Inhale 2 [facility] (PROAIR 9-03 Puffs ity of HFA) 90 00:00: every 6 [place] mcg/actuati 00 (six) Medical on inhaler hours as Branc h needed for Wheezing or Shortness of Breath. albuterol Yes [id number] 2{puff} Inhale 2 [facility] (PROAIR 9-03 Puffs ity of HFA) 90 00:00: every 6 [place] mcg/actuati 00 (six) Medical on inhaler hours as Branc h needed for Wheezing or Shortness of Breath. albuterol Yes [id number] 2{puff} Inhale 2 [facility] (PROAIR 9-03 Puffs ity of HFA) 90 00:00: every 6 [place] mcg/actuati 00 (six) Medical on inhaler hours as Branc h needed for Wheezing or Shortness of Breath. albuterol Yes [id number] 2{puff} Inhale 2 [facility] (PROAIR 9-03 Puffs ity of HFA) 90 00:00: every 6 [place] mcg/actuati 00 (six) Medical on inhaler hours as Branc h needed for Wheezing or Shortness of Breath. albuterol 0 Yes [id number] 2{puff} Inhale 2 [facility] (PROAIR 9-03 Puffs ity of HFA) 90 00:00: every 6 [place] mcg/actuati 00 (six) Medical on inhaler hours as Branc h needed for Wheezing or Shortness of Breath. albuterol Yes [id number] 2{puff} Inhale 2 [facility] (PROAIR 9-03 Puffs ity of HFA) 90 00:00: every 6 [place] mcg/actuati 00 (six) Medical on inhaler hours as Branc h needed for Wheezing or Shortness of Breath. albuterol Yes [id number] 2{puff} Inhale 2 [facility] (PROAIR 9-03 Puffs ity of HFA) 90 00:00: every 6 [place] mcg/actuati 00 (six) Medical on inhaler hours as Branc h needed for Wheezing or Shortness of Breath. albuterol Yes [id number] 2{puff} Inhale 2 [facility] (PROAIR 9-03 Puffs ity of HFA) 90 00:00: every 6 [place] mcg/actuati 00 (six) Medical on inhaler hours as Branc h needed for Wheezing or Shortness of Breath. albuterol Yes [id number] 2{puff} Inhale 2 [facility] (PROAIR 9-03 Puffs ity of HFA) 90 00:00: every 6 [place] mcg/actuati 00 (six) Medical on inhaler hours as Branc h needed for Wheezing or Shortness of Breath. albuterol Yes [id number] 2{puff} Inhale 2 [facility] (PROAIR 9-03 Puffs ity of HFA) 90 00:00: every 6 [place] mcg/actuati 00 (six) Medical on inhaler hours as Branc h needed for Wheezing or Shortness of Breath. albuterol 0 Yes [id number] 2{puff} Inhale 2 [facility] (PROAIR 9-03 Puffs ity of HFA) 90 00:00: every 6 [place] mcg/actuati 00 (six) Medical on inhaler hours as Branc h needed for Wheezing or Shortness of Breath. albuterol 0 Yes [id number] 2{puff} Inhale 2 [facility] (PROAIR 9-03 Puffs ity of HFA) 90 00:00: every 6 [place] mcg/actuati 00 (six) Medical on inhaler hours as Branc h needed for Wheezing or Shortness of Breath. albuterol Yes [id number] 2{puff} Inhale 2 [facility] (PROAIR 9-03 Puffs ity of HFA) 90 00:00: every 6 [place] mcg/actuati 00 (six) Medical on inhaler hours as Branc h needed for Wheezing or Shortness of Breath. albuterol Yes [id number] 2{puff} Inhale 2 [facility] (PROAIR 9-03 Puffs ity of HFA) 90 00:00: every 6 [place] mcg/actuati 00 (six) Medical on inhaler hours as Branc h needed for Wheezing or Shortness of Breath. albuterol 0 Yes [id number] 2{puff} Inhale 2 [facility] (PROAIR 9-03 Puffs ity of HFA) 90 00:00: every 6 [place] mcg/actuati 00 (six) Medical on inhaler hours as Branc h needed for Wheezing or Shortness of Breath. albuterol 0 Yes [id number] 2{puff} Inhale 2 [facility] (PROAIR 9-03 Puffs ity of HFA) 90 00:00: every 6 [place] mcg/actuati 00 (six) Medical on inhaler hours as Branc h needed for Wheezing or Shortness of Breath. albuterol 0 Yes [id number] 2{puff} Inhale 2 [facility] (PROAIR 9-03 Puffs ity of HFA) 90 00:00: every 6 [place] mcg/actuati 00 (six) Medical on inhaler hours as Branc h needed for Wheezing or Shortness of Breath. albuterol Yes [id number] 2{puff} Inhale 2 [facility] (PROAIR 9-03 Puffs ity of HFA) 90 00:00: every 6 [place] mcg/actuati 00 (six) Medical on inhaler hours as Branc h needed for Wheezing or Shortness of Breath. albuterol Yes [id number] 2{puff} Inhale 2 [facility] (PROAIR 9-03 Puffs ity of HFA) 90 00:00: every 6 [place] mcg/actuati 00 (six) Medical on inhaler hours as Branc h needed for Wheezing or Shortness of Breath. albuterol Yes [id number] 2{puff} Inhale 2 [facility] (PROAIR 9-03 Puffs ity of HFA) 90 00:00: every 6 [place] mcg/actuati 00 (six) Medical on inhaler hours as Branc h needed for Wheezing or Shortness of Breath. albuterol Yes [id number] 2{puff} Inhale 2 [facility] (PROAIR 9-03 Puffs ity of HFA) 90 00:00: every 6 [place] mcg/actuati 00 (six) Medical on inhaler hours as Branc h needed for Wheezing or Shortness of Breath. albuterol Yes [id number] 2{puff} Inhale 2 [facility] (PROAIR 9-03 Puffs ity of HFA) 90 00:00: every 6 [place] mcg/actuati 00 (six) Medical on inhaler hours as Branc h needed for Wheezing or Shortness of Breath. albuterol Yes [id number] 2{puff} Inhale 2 [facility] (PROAIR 9-03 Puffs ity of HFA) 90 00:00: every 6 [place] mcg/actuati 00 (six) Medical on inhaler hours as Branc h needed for Wheezing or Shortness of Breath. albuterol Yes [id number] 2{puff} Inhale 2 [facility] (PROAIR 9-03 Puffs ity of HFA) 90 00:00: every 6 [place] mcg/actuati 00 (six) Medical on inhaler hours as Branc h needed for Wheezing or Shortness of Breath. albuterol Yes [id number] 2{puff} Inhale 2 [facility] (PROAIR 9-03 Puffs ity of HFA) 90 00:00: every 6 [place] mcg/actuati 00 (six) Medical on inhaler hours as Branc h needed for Wheezing or Shortness of Breath. albuterol Yes [id number] 2{puff} Inhale 2 [facility] (PROAIR 9-03 Puffs ity of HFA) 90 00:00: every 6 [place] mcg/actuati 00 (six) Medical on inhaler hours as Branc h needed for Wheezing or Shortness of Breath. albuterol Yes [id number] 2{puff} Inhale 2 [facility] (PROAIR 9-03 Puffs ity of HFA) 90 00:00: every 6 [place] mcg/actuati 00 (six) Medical on inhaler hours as Branc h needed for Wheezing or Shortness of Breath. albuterol Yes [id number] 2{puff} Inhale 2 [facility] (PROAIR 9-03 Puffs ity of HFA) 90 00:00: every 6 [place] mcg/actuati 00 (six) Medical on inhaler hours as Branc h needed for Wheezing or Shortness of Breath. albuterol Yes [id number] 2{puff} Inhale 2 [facility] (PROAIR 9-03 Puffs ity of HFA) 90 00:00: every 6 [place] mcg/actuati 00 (six) Medical on inhaler hours as Branc h needed for Wheezing or Shortness of Breath. albuterol Yes [id number] 2{puff} Inhale 2 [facility] (PROAIR 9-03 Puffs ity of HFA) 90 00:00: every 6 [place] mcg/actuati 00 (six) Medical on inhaler hours as Branc h needed for Wheezing or Shortness of Breath. albuterol Yes [id number] 2{puff} Inhale 2 [facility] (PROAIR 9-03 Puffs ity of HFA) 90 00:00: every 6 [place] mcg/actuati 00 (six) Medical on inhaler hours as Branc h needed for Wheezing or Shortness of Breath. albuterol Yes [id number] 2{puff} Inhale 2 [facility] (PROAIR 9-03 Puffs ity of HFA) 90 00:00: every 6 [place] mcg/actuati 00 (six) Medical on inhaler hours as Branc h needed for Wheezing or Shortness of Breath. albuterol Yes [id number] 2{puff} Inhale 2 [facility] (PROAIR 9-03 Puffs ity of HFA) 90 00:00: every 6 [place] mcg/actuati 00 (six) Medical on inhaler hours as Branc h needed for Wheezing or Shortness of Breath. albuterol Yes [id number] 2{puff} Inhale 2 [facility] (PROAIR 9-03 Puffs ity of HFA) 90 00:00: every 6 [place] mcg/actuati 00 (six) Medical on inhaler hours as Branc h needed for Wheezing or Shortness of Breath. albuterol Yes [id number] 2{puff} Inhale 2 [facility] (PROAIR 9-03 Puffs ity of HFA) 90 00:00: every 6 [place] mcg/actuati 00 (six) Medical on inhaler hours as Branc h needed for Wheezing or Shortness of Breath. albuterol Yes [id number] 2{puff} Inhale 2 [facility] (PROAIR 9-03 Puffs ity of HFA) 90 00:00: every 6 [place] mcg/actuati 00 (six) Medical on inhaler hours as Branc h needed for Wheezing or Shortness of Breath. albuterol Yes [id number] 2{puff} Inhale 2 [facility] (PROAIR 9-03 Puffs ity of HFA) 90 00:00: every 6 [place] mcg/actuati 00 (six) Medical on inhaler hours as Branc h needed for Wheezing or Shortness of Breath. albuterol Yes [id number] 2{puff} Inhale 2 [facility] (PROAIR 9-03 Puffs ity of HFA) 90 00:00: every 6 [place] mcg/actuati 00 (six) Medical on inhaler hours as Branc h needed for Wheezing or Shortness of Breath. albuterol Yes [id number] 2{puff} Inhale 2 [facility] (PROAIR 9-03 Puffs ity of HFA) 90 00:00: every 6 [place] mcg/actuati 00 (six) Medical on inhaler hours as Branc h needed for Wheezing or Shortness of Breath. albuterol 0 Yes [id number] 2{puff} Inhale 2 [facility] (PROAIR 9-03 Puffs ity of HFA) 90 00:00: every 6 [place] mcg/actuati 00 (six) Medical on inhaler hours as Branc h needed for Wheezing or Shortness of Breath. albuterol 0 Yes [id number] 2{puff} Inhale 2 [facility] (PROAIR 9-03 Puffs ity of HFA) 90 00:00: every 6 [place] mcg/actuati 00 (six) Medical on inhaler hours as Branc h needed for Wheezing or Shortness of Breath. albuterol Yes [id number] 2{puff} Inhale 2 [facility] (PROAIR 9-03 Puffs ity of HFA) 90 00:00: every 6 [place] mcg/actuati 00 (six) Medical on inhaler hours as Branc h needed for Wheezing or Shortness of Breath. albuterol Yes [id number] 2{puff} Inhale 2 [facility] (PROAIR 9-03 Puffs ity of HFA) 90 00:00: every 6 [place] mcg/actuati 00 (six) Medical on inhaler hours as Branc h needed for Wheezing or Shortness of Breath. albuterol 0 Yes [id number] 2{puff} Inhale 2 [facility] (PROAIR 9-03 Puffs ity of HFA) 90 00:00: every 6 [place] mcg/actuati 00 (six) Medical on inhaler hours as Branc h needed for Wheezing or Shortness of Breath. albuterol 0 Yes [id number] 2{puff} Inhale 2 [facility] (PROAIR 9-03 Puffs ity of HFA) 90 00:00: every 6 [place] mcg/actuati 00 (six) Medical on inhaler hours as Branc h needed for Wheezing or Shortness of Breath. albuterol 0 Yes [id number] 2{puff} Inhale 2 [facility] (PROAIR 9-03 Puffs ity of HFA) 90 00:00: every 6 [place] mcg/actuati 00 (six) Medical on inhaler hours as Branc h needed for Wheezing or Shortness of Breath. albuterol Yes [id number] 2{puff} Inhale 2 [facility] (PROAIR 9-03 Puffs ity of HFA) 90 00:00: every 6 [place] mcg/actuati 00 (six) Medical on inhaler hours as Branc h needed for Wheezing or Shortness of Breath. albuterol Yes [id number] 2{puff} Inhale 2 [facility] (PROAIR 9-03 Puffs ity of HFA) 90 00:00: every 6 [place] mcg/actuati 00 (six) Medical on inhaler hours as Branc h needed for Wheezing or Shortness of Breath. albuterol Yes [id number] 2{puff} Inhale 2 [facility] (PROAIR 9-03 Puffs ity of HFA) 90 00:00: every 6 [place] mcg/actuati 00 (six) Medical on inhaler hours as Branc h needed for Wheezing or Shortness of Breath. albuterol Yes [id number] 2{puff} Inhale 2 [facility] (PROAIR 9-03 Puffs ity of HFA) 90 00:00: every 6 [place] mcg/actuati 00 (six) Medical on inhaler hours as Branc h needed for Wheezing or Shortness of Breath. albuterol Yes [id number] 2{puff} Inhale 2 [facility] (PROAIR 9-03 Puffs ity of HFA) 90 00:00: every 6 [place] mcg/actuati 00 (six) Medical on inhaler hours as Branc h needed for Wheezing or Shortness of Breath. albuterol Yes [id number] 2{puff} Inhale 2 [facility] (PROAIR 9-03 Puffs ity of HFA) 90 00:00: every 6 [place] mcg/actuati 00 (six) Medical on inhaler hours as Branc h needed for Wheezing or Shortness of Breath. albuterol Yes [id number] 2{puff} Inhale 2 [facility] (PROAIR 9-03 Puffs ity of HFA) 90 00:00: every 6 [place] mcg/actuati 00 (six) Medical on inhaler hours as Branc h needed for Wheezing or Shortness of Breath. albuterol Yes [id number] 2{puff} Inhale 2 [facility] (PROAIR 9-03 Puffs ity of HFA) 90 00:00: every 6 [place] mcg/actuati 00 (six) Medical on inhaler hours as Branc h needed for Wheezing or Shortness of Breath. albuterol Yes [id number] 2{puff} Inhale 2 [facility] (PROAIR 9-03 Puffs ity of HFA) 90 00:00: every 6 [place] mcg/actuati 00 (six) Medical on inhaler hours as Branc h needed for Wheezing or Shortness of Breath. albuterol Yes [id number] 2{puff} Inhale 2 [facility] (PROAIR 9-03 Puffs ity of HFA) 90 00:00: every 6 [place] mcg/actuati 00 (six) Medical on inhaler hours as Branc h needed for Wheezing or Shortness of Breath. albuterol Yes [id number] 2{puff} Inhale 2 [facility] (PROAIR 9-03 Puffs ity of HFA) 90 00:00: every 6 [place] mcg/actuati 00 (six) Medical on inhaler hours as Branc h needed for Wheezing or Shortness of Breath. albuterol Yes [id number] 2{puff} Inhale 2 [facility] (PROAIR 9-03 Puffs ity of HFA) 90 00:00: every 6 [place] mcg/actuati 00 (six) Medical on inhaler hours as Branc h needed for Wheezing or Shortness of Breath. albuterol Yes [id number] 2{puff} Inhale 2 [facility] (PROAIR 9-03 Puffs ity of HFA) 90 00:00: every 6 [place] mcg/actuati 00 (six) Medical on inhaler hours as Branc h needed for Wheezing or Shortness of Breath. albuterol Yes [id number] 2{puff} Inhale 2 [facility] (PROAIR 9-03 Puffs ity of HFA) 90 00:00: every 6 [place] mcg/actuati 00 (six) Medical on inhaler hours as Branc h needed for Wheezing or Shortness of Breath. albuterol Yes [id number] 2{puff} Inhale 2 [facility] (PROAIR 9-03 Puffs ity of HFA) 90 00:00: every 6 [place] mcg/actuati 00 (six) Medical on inhaler hours as Branc h needed for Wheezing or Shortness of Breath. albuterol Yes [id number] 2{puff} Inhale 2 [facility] (PROAIR 9-03 Puffs ity of HFA) 90 00:00: every 6 [place] mcg/actuati 00 (six) Medical on inhaler hours as Branc h needed for Wheezing or Shortness of Breath. albuterol Yes [id number] 2{puff} Inhale 2 [facility] (PROAIR 9-03 Puffs ity of HFA) 90 00:00: every 6 [place] mcg/actuati 00 (six) Medical on inhaler hours as Branc h needed for Wheezing or Shortness of Breath. albuterol Yes [id number] 2{puff} Inhale 2 [facility] (PROAIR 9-03 Puffs ity of HFA) 90 00:00: every 6 [place] mcg/actuati 00 (six) Medical on inhaler hours as Branc h needed for Wheezing or Shortness of Breath. albuterol Yes [id number] 2{puff} Inhale 2 [facility] (PROAIR 9-03 Puffs ity of HFA) 90 00:00: every 6 [place] mcg/actuati 00 (six) Medical on inhaler hours as Branc h needed for Wheezing or Shortness of Breath. albuterol Yes [id number] 2{puff} Inhale 2 [facility] (PROAIR 9-03 Puffs ity of HFA) 90 00:00: every 6 [place] mcg/actuati 00 (six) Medical on inhaler hours as Branc h needed for Wheezing or Shortness of Breath. albuterol Yes [id number] 2{puff} Inhale 2 [facility] (PROAIR 9-03 Puffs ity of HFA) 90 00:00: every 6 [place] mcg/actuati 00 (six) Medical on inhaler hours as Branc h needed for Wheezing or Shortness of Breath. albuterol Yes [id number] 2{puff} Inhale 2 [facility] (PROAIR 9-03 Puffs ity of HFA) 90 00:00: every 6 [place] mcg/actuati 00 (six) Medical on inhaler hours as Branc h needed for Wheezing or Shortness of Breath. albuterol 0 Yes [id number] 2{puff} Inhale 2 [facility] (PROAIR 9-03 Puffs ity of HFA) 90 00:00: every 6 [place] mcg/actuati 00 (six) Medical on inhaler hours as Branc h needed for Wheezing or Shortness of Breath. albuterol 0 Yes [id number] 2{puff} Inhale 2 [facility] (PROAIR 9-03 Puffs ity of HFA) 90 00:00: every 6 [place] mcg/actuati 00 (six) Medical on inhaler hours as Branc h needed for Wheezing or Shortness of Breath. albuterol 0 Yes [id number] 2{puff} Inhale 2 [facility] (PROAIR 9-03 Puffs ity of HFA) 90 00:00: every 6 [place] mcg/actuati 00 (six) Medical on inhaler hours as Branc h needed for Wheezing or Shortness of Breath. albuterol Yes [id number] 2{puff} Inhale 2 [facility] (PROAIR 9-03 Puffs ity of HFA) 90 00:00: every 6 [place] mcg/actuati 00 (six) Medical on inhaler hours as Branc h needed for Wheezing or Shortness of Breath. albuterol 0 Yes [id number] 2{puff} Inhale 2 [facility] (PROAIR 9-03 Puffs ity of HFA) 90 00:00: every 6 [place] mcg/actuati 00 (six) Medical on inhaler hours as Branc h needed for Wheezing or Shortness of Breath. albuterol 0 Yes [id number] 2{puff} Inhale 2 [facility] (PROAIR 9-03 Puffs ity of HFA) 90 00:00: every 6 [place] mcg/actuati 00 (six) Medical on inhaler hours as Branc h needed for Wheezing or Shortness of Breath. albuterol 0 Yes [id number] 2{puff} Inhale 2 [facility] (PROAIR 9-03 Puffs ity of HFA) 90 00:00: every 6 [place] mcg/actuati 00 (six) Medical on inhaler hours as Branc h needed for Wheezing or Shortness of Breath. albuterol Yes [id number] 2{puff} Inhale 2 [facility] (PROAIR 9-03 Puffs ity of HFA) 90 00:00: every 6 [place] mcg/actuati 00 (six) Medical on inhaler hours as Branc h needed for Wheezing or Shortness of Breath. albuterol Yes [id number] 2{puff} Inhale 2 [facility] (PROAIR 9-03 Puffs ity of HFA) 90 00:00: every 6 [place] mcg/actuati 00 (six) Medical on inhaler hours as Branc h needed for Wheezing or Shortness of Breath. albuterol Yes [id number] 2{puff} Inhale 2 [facility] (PROAIR 9-03 Puffs ity of HFA) 90 00:00: every 6 [place] mcg/actuati 00 (six) Medical on inhaler hours as Branc h needed for Wheezing or Shortness of Breath. albuterol Yes [id number] 2{puff} Inhale 2 [facility] (PROAIR 9-03 Puffs ity of HFA) 90 00:00: every 6 [place] mcg/actuati 00 (six) Medical on inhaler hours as Branc h needed for Wheezing or Shortness of Breath. albuterol Yes [id number] 2{puff} Inhale 2 [facility] (PROAIR 9-03 Puffs ity of HFA) 90 00:00: every 6 [place] mcg/actuati 00 (six) Medical on inhaler hours as Branc h needed for Wheezing or Shortness of Breath. albuterol Yes [id number] 2{puff} Inhale 2 [facility] (PROAIR 9-03 Puffs ity of HFA) 90 00:00: every 6 [place] mcg/actuati 00 (six) Medical on inhaler hours as Branc h needed for Wheezing or Shortness of Breath. albuterol Yes [id number] 2{puff} Inhale 2 [facility] (PROAIR 9-03 Puffs ity of HFA) 90 00:00: every 6 [place] mcg/actuati 00 (six) Medical on inhaler hours as Branc h needed for Wheezing or Shortness of Breath. albuterol Yes [id number] 2{puff} Inhale 2 [facility] (PROAIR 9-03 Puffs ity of HFA) 90 00:00: every 6 [place] mcg/actuati 00 (six) Medical on inhaler hours as Branc h needed for Wheezing or Shortness of Breath. albuterol Yes [id number] 2{puff} Inhale 2 [facility] (PROAIR 9-03 Puffs ity of HFA) 90 00:00: every 6 [place] mcg/actuati 00 (six) Medical on inhaler hours as Branc h needed for Wheezing or Shortness of Breath. albuterol Yes [id number] 2{puff} Inhale 2 [facility] (PROAIR 9-03 Puffs ity of HFA) 90 00:00: every 6 [place] mcg/actuati 00 (six) Medical on inhaler hours as Branc h needed for Wheezing or Shortness of Breath. albuterol Yes [id number] 2{puff} Inhale 2 [facility] (PROAIR 9-03 Puffs ity of HFA) 90 00:00: every 6 [place] mcg/actuati 00 (six) Medical on inhaler hours as Branc h needed for Wheezing or Shortness of Breath. albuterol Yes [id number] 2{puff} Inhale 2 [facility] (PROAIR 9-03 Puffs ity of HFA) 90 00:00: every 6 [place] mcg/actuati 00 (six) Medical on inhaler hours as Branc h needed for Wheezing or Shortness of Breath. albuterol Yes [id number] 2{puff} Inhale 2 [facility] (PROAIR 9-03 Puffs ity of HFA) 90 00:00: every 6 [place] mcg/actuati 00 (six) Medical on inhaler hours as Branc h needed for Wheezing or Shortness of Breath. albuterol Yes [id number] 2{puff} Inhale 2 [facility] (PROAIR 9-03 Puffs ity of HFA) 90 00:00: every 6 [place] mcg/actuati 00 (six) Medical on inhaler hours as Branc h needed for Wheezing or Shortness of Breath. albuterol Yes [id number] 2{puff} Inhale 2 [facility] (PROAIR 9-03 Puffs ity of HFA) 90 00:00: every 6 [place] mcg/actuati 00 (six) Medical on inhaler hours as Branc h needed for Wheezing or Shortness of Breath. albuterol Yes [id number] 2{puff} Inhale 2 [facility] (PROAIR 9-03 Puffs ity of HFA) 90 00:00: every 6 [place] mcg/actuati 00 (six) Medical on inhaler hours as Branc h needed for Wheezing or Shortness of Breath. albuterol Yes [id number] 2{puff} Inhale 2 [facility] (PROAIR 9-03 Puffs ity of HFA) 90 00:00: every 6 [place] mcg/actuati 00 (six) Medical on inhaler hours as Branc h needed for Wheezing or Shortness of Breath. albuterol Yes [id number] 2{puff} Inhale 2 [facility] (PROAIR 9-03 Puffs ity of HFA) 90 00:00: every 6 [place] mcg/actuati 00 (six) Medical on inhaler hours as Branc h needed for Wheezing or Shortness of Breath. albuterol Yes [id number] 2{puff} Inhale 2 [facility] (PROAIR 9-03 Puffs ity of HFA) 90 00:00: every 6 [place] mcg/actuati 00 (six) Medical on inhaler hours as Branc h needed for Wheezing or Shortness of Breath. albuterol Yes [id number] 2{puff} Inhale 2 [facility] (PROAIR 9-03 Puffs ity of HFA) 90 00:00: every 6 [place] mcg/actuati 00 (six) Medical on inhaler hours as Branc h needed for Wheezing or Shortness of Breath. albuterol Yes [id number] 2{puff} Inhale 2 [facility] (PROAIR 9-03 Puffs ity of HFA) 90 00:00: every 6 [place] mcg/actuati 00 (six) Medical on inhaler hours as Branc h needed for Wheezing or Shortness of Breath. albuterol Yes [id number] 2{puff} Inhale 2 [facility] (PROAIR 9-03 Puffs ity of HFA) 90 00:00: every 6 [place] mcg/actuati 00 (six) Medical on inhaler hours as Branc h needed for Wheezing or Shortness of Breath. albuterol 0 Yes [id number] 2{puff} Inhale 2 [facility] (PROAIR 9-03 Puffs ity of HFA) 90 00:00: every 6 [place] mcg/actuati 00 (six) Medical on inhaler hours as Branc h needed for Wheezing or Shortness of Breath. albuterol 0 Yes [id number] 2{puff} Inhale 2 [facility] (PROAIR 9-03 Puffs ity of HFA) 90 00:00: every 6 [place] mcg/actuati 00 (six) Medical on inhaler hours as Branc h needed for Wheezing or Shortness of Breath. albuterol 0 Yes [id number] 2{puff} Inhale 2 [facility] (PROAIR 9-03 Puffs ity of HFA) 90 00:00: every 6 [place] mcg/actuati 00 (six) Medical on inhaler hours as Branc h needed for Wheezing or Shortness of Breath. albuterol 0 Yes [id number] 2{puff} Inhale 2 [facility] (PROAIR 9-03 Puffs ity of HFA) 90 00:00: every 6 [place] mcg/actuati 00 (six) Medical on inhaler hours as Branc h needed for Wheezing or Shortness of Breath. albuterol 0 Yes [id number] 2{puff} Inhale 2 [facility] (PROAIR 9-03 Puffs ity of HFA) 90 00:00: every 6 [place] mcg/actuati 00 (six) Medical on inhaler hours as Branc h needed for Wheezing or Shortness of Breath. albuterol 0 Yes [id number] 2{puff} Inhale 2 [facility] (PROAIR 9-03 Puffs ity of HFA) 90 00:00: every 6 [place] mcg/actuati 00 (six) Medical on inhaler hours as Branc h needed for Wheezing or Shortness of Breath. albuterol 0 Yes [id number] 2{puff} Inhale 2 [facility] (PROAIR 9-03 Puffs ity of HFA) 90 00:00: every 6 [place] mcg/actuati 00 (six) Medical on inhaler hours as Branc h needed for Wheezing or Shortness of Breath. albuterol Yes [id number] 2{puff} Inhale 2 [facility] (PROAIR 9-03 Puffs ity of HFA) 90 00:00: every 6 [place] mcg/actuati 00 (six) Medical on inhaler hours as Branc h needed for Wheezing or Shortness of Breath. albuterol Yes [id number] 2{puff} Inhale 2 [facility] (PROAIR 9-03 Puffs ity of HFA) 90 00:00: every 6 [place] mcg/actuati 00 (six) Medical on inhaler hours as Branc h needed for Wheezing or Shortness of Breath. amLODIPine 2021- No [id number] 2.5mg Take 1 [facility] 2.5 mg 07-20 tablet by ity of tablet 00:00: 00:00 mouth [place] 00 :00 daily. [facility] amLODIPine 2021- No [id number] 2.5mg Take 1 [facility] 2.5 mg 07-20 tablet by ity of tablet 00:00: 00:00 mouth [place] 00 :00 daily. [facility] amLODIPine 2021- No [id number] 2.5mg Take 1 [facility] 2.5 mg 07-20 tablet by ity of tablet 00:00: 00:00 mouth [place] 00 :00 daily. [facility] hydroCHLORO 2021- No [id number] 25mg Take 1 [facility] thiazide 25 07-2015 tablet by it y of mg tablet 00:00: 00:00 mouth [place] 00 :00 daily. [facility] hydroCHLORO 2021- No [id number] 25mg Take 1 [facility] thiazide 25 07-2015 tablet by it y of mg tablet 00:00: 00:00 mouth [place] 00 :00 daily. [facility] aspirin 81 2019-02 Yes [id number] 81mg Take 1 [facility] mg chewable 0-01 [id number] tablet by i ty of tablet 00:00: mouth [place] 00 daily. [facility] aspirin 81 2019-02 Yes [id number] 81mg Take 1 [facility] mg chewable 0-01 [id number] tablet by i ty of tablet 00:00: mouth [place] 00 daily. [facility] aspirin 81 2019-02 Yes [id number] 81mg Take 1 [facility] mg chewable 0-01 [id number] tablet by i ty of tablet 00:00: mouth [place] 00 daily. [facility] aspirin 81 2020- Yes [id number] 81mg Take 1 [facility] mg chewable 0-01 [id number] tablet by i ty of tablet 00:00: mouth [place] 00 daily. [facility] aspirin 81 2019- Yes [id number] 81mg Take 1 [facility] mg chewable 0-01 [id number] tablet by i ty of tablet 00:00: mouth [place] 00 daily. [facility] aspirin 81 2019- Yes [id number] 81mg Take 1 [facility] mg chewable 0-01 [id number] tablet by i ty of tablet 00:00: mouth [place] 00 daily. [facility] aspirin 81 2019- Yes [id number] 81mg Take 1 [facility] mg chewable 0-01 [id number] tablet by i ty of tablet 00:00: mouth [place] 00 daily. [facility] aspirin 81 2019- Yes [id number] 81mg Take 1 [facility] mg chewable 0-01 [id number] tablet by i ty of tablet 00:00: mouth [place] 00 daily. [facility] aspirin 81 2019- Yes [id number] 81mg Take 1 [facility] mg chewable 0-01 [id number] tablet by i ty of tablet 00:00: mouth [place] 00 daily. [facility] aspirin 81 2020- Yes [id number] 81mg Take 1 [facility] mg chewable 0-01 [id number] tablet by i ty of tablet 00:00: mouth [place] 00 daily. [facility] aspirin 81 2020- Yes [id number] 81mg Take 1 [facility] mg chewable 0-01 [id number] tablet by i ty of tablet 00:00: mouth [place] 00 daily. [facility] aspirin 81 2020- Yes [id number] 81mg Take 1 [facility] mg chewable 0-01 [id number] tablet by i ty of tablet 00:00: mouth [place] 00 daily. [facility] aspirin 81 2020- Yes [id number] 81mg Take 1 [facility] mg chewable 0-01 [id number] tablet by i ty of tablet 00:00: mouth [place] 00 daily. [facility] aspirin 81 2020- Yes [id number] 81mg Take 1 [facility] mg chewable 0-01 [id number] tablet by i ty of tablet 00:00: mouth [place] 00 daily. [facility] aspirin 81 2020- Yes [id number] 81mg Take 1 [facility] mg chewable 0-01 [id number] tablet by i ty of tablet 00:00: mouth [place] 00 daily. [facility] aspirin 81 2020- Yes [id number] 81mg Take 1 [facility] mg chewable 0-01 [id number] tablet by i ty of tablet 00:00: mouth [place] 00 daily. [facility] aspirin 81 2020- Yes [id number] 81mg Take 1 [facility] mg chewable 0-01 [id number] tablet by i ty of tablet 00:00: mouth [place] 00 daily. [facility] aspirin 81 2020- Yes [id number] 81mg Take 1 [facility] mg chewable 0-01 [id number] tablet by i ty of tablet 00:00: mouth [place] 00 daily. [facility] aspirin 81 2020- Yes [id number] 81mg Take 1 [facility] mg chewable 0-01 [id number] tablet by i ty of tablet 00:00: mouth [place] 00 daily. [facility] aspirin 81 2020- Yes [id number] 81mg Take 1 [facility] mg chewable 0-01 [id number] tablet by i ty of tablet 00:00: mouth [place] 00 daily. [facility] aspirin 81 2020- Yes [id number] 81mg Take 1 [facility] mg chewable 0-01 [id number] tablet by i ty of tablet 00:00: mouth [place] 00 daily. [facility] aspirin 81 2020- Yes [id number] 81mg Take 1 [facility] mg chewable 0-01 [id number] tablet by i ty of tablet 00:00: mouth [place] 00 daily. [facility] aspirin 81 2020- Yes [id number] 81mg Take 1 [facility] mg chewable 0-01 [id number] tablet by i ty of tablet 00:00: mouth [place] 00 daily. [facility] aspirin 81 2020- Yes [id number] 81mg Take 1 [facility] mg chewable 0-01 [id number] tablet by i ty of tablet 00:00: mouth [place] 00 daily. [facility] aspirin 81 2020- Yes [id number] 81mg Take 1 [facility] mg chewable 0-01 [id number] tablet by i ty of tablet 00:00: mouth [place] 00 daily. [facility] aspirin 81 2020- Yes [id number] 81mg Take 1 [facility] mg chewable 0-01 [id number] tablet by i ty of tablet 00:00: mouth [place] 00 daily. [facility] aspirin 81 2020- Yes [id number] 81mg Take 1 [facility] mg chewable 0-01 [id number] tablet by i ty of tablet 00:00: mouth [place] 00 daily. [facility] aspirin 81 2020- Yes [id number] 81mg Take 1 [facility] mg chewable 0-01 [id number] tablet by i ty of tablet 00:00: mouth [place] 00 daily. [facility] aspirin 81 2020- Yes [id number] 81mg Take 1 [facility] mg chewable 0-01 [id number] tablet by i ty of tablet 00:00: mouth [place] 00 daily. [facility] [facility] aspirin 81 2019- Yes [id number] 81mg Take 1 [facility] che[facility]-01 [id number] tablet by i ty of tablet 00:00: mouth [place] 00 daily. [facility] aspirin 81 2019- Yes [id number] 81mg Take 1 [facility] chewable 0-01 [id number] tablet by i ty of tablet 00:00: mouth [place] 00 daily. [facility] aspirin 81 2019- Yes [id number] 81mg Take 1 [facility] chewable 0-01 [id number] tablet by i ty of tablet 00:00: mouth [place] 00 daily. [facility] aspirin 81 2019- Yes [id number] 81mg Take 1 [facility] mg chewable 0-01 [id number] tablet by i ty of tablet 00:00: mouth [place] 00 daily. [facility] aspirin 81 2019- Yes [id number] 81mg Take 1 [facility] chewable 0-01 [id number] tablet by i ty of tablet 00:00: mouth [place] 00 daily. [facility] aspirin 81 2020- Yes [id number] 81mg Take 1 [facility] chewable 0-01 [id number] tablet by i ty of tablet 00:00: mouth [place] 00 daily. [facility] aspirin 81 2020- Yes [id number] 81mg Take 1 [facility] chewable 0-01 [id number] tablet by i ty of tablet 00:00: mouth [place] 00 daily. [facility] aspirin 81 2020- Yes [id number] 81mg Take 1 [facility] chewable 0-01 [id number] tablet by i ty of tablet 00:00: mouth [place] 00 daily. [facility] aspirin 81 2020- Yes [id number] 81mg Take 1 [facility] chewable 0-01 [id number] tablet by i ty of tablet 00:00: mouth [place] 00 daily. [facility] aspirin 81 2020- Yes [id number] 81mg Take 1 [facility] chewable 0-01 [id number] tablet by i ty of tablet 00:00: mouth [place] 00 daily. [facility] aspirin 81 2020- Yes [id number] 81mg Take 1 [facility] chewable 0-01 [id number] tablet by i ty of tablet 00:00: mouth [place] 00 daily. [facility] aspirin 81 2020- Yes [id number] 81mg Take 1 [facility] chewable 0-01 [id number] tablet by i ty of tablet 00:00: mouth [place] 00 daily. [facility] aspirin 81 2020- Yes [id number] 81mg Take 1 [facility] chewable 0-01 [id number] tablet by i ty of tablet 00:00: mouth [place] 00 daily. [facility] aspirin 81 2020- Yes [id number] 81mg Take 1 [facility] mg chewable 0-01 [id number] tablet by i ty of tablet 00:00: mouth [place] 00 daily. [facility] aspirin 81 2020- Yes [id number] 81mg Take 1 [facility] chewable 0-01 [id number] tablet by i ty of tablet 00:00: mouth [place] 00 daily. [facility] aspirin 81 2020- Yes [id number] 81mg Take 1 [facility] chewable 0-01 [id number] tablet by i ty of tablet 00:00: mouth [place] 00 daily. [facility] aspirin 81 2020- Yes [id number] 81mg Take 1 [facility] chewable 0-01 [id number] tablet by i ty of tablet 00:00: mouth [place] 00 daily. [facility] aspirin 81 2020- Yes [id number] 81mg Take 1 [facility] chewable 0-01 [id number] tablet by i ty of tablet 00:00: mouth [place] 00 daily. [facility] aspirin 81 2020- Yes [id number] 81mg Take 1 [facility] chewable 0-01 [id number] tablet by i ty of tablet 00:00: mouth [place] 00 daily. [facility] aspirin 81 2020- Yes [id number] 81mg Take 1 [facility] mg chewable 0-01 [id number] tablet by i ty of tablet 00:00: mouth [place] 00 daily. [facility] aspirin 81 2020- Yes [id number] 81mg Take 1 [facility] chewable 0-01 [id number] tablet by i ty of tablet 00:00: mouth [place] 00 daily. [facility] aspirin 81 2020- Yes [id number] 81mg Take 1 [facility] mg chewable 0-01 [id number] tablet by i ty of tablet 00:00: mouth [place] 00 daily. [facility] aspirin 81 2020- Yes [id number] 81mg Take 1 [facility] chewable 0-01 [id number] tablet by i ty of tablet 00:00: mouth [place] 00 daily. [facility] aspirin 81 2020- Yes [id number] 81mg Take 1 [facility] chewable 0-01 [id number] tablet by i ty of tablet 00:00: mouth [place] 00 daily. [facility] aspirin 81 2020- Yes [id number] 81mg Take 1 [facility] mg chewable 0-01 [id number] tablet by i ty of tablet 00:00: mouth [place] 00 daily. [facility] aspirin 81 2019- Yes [id number] 81mg Take 1 [facility] chewable 0-01 [id number] tablet by i ty of tablet 00:00: mouth [place] 00 daily. [facility] aspirin 81 2019- Yes [id number] 81mg Take 1 [facility] chewable 0-01 [id number] tablet by i ty of tablet 00:00: mouth [place] 00 daily. [facility] aspirin 81 2019- Yes [id number] 81mg Take 1 [facility] mg chewable 0-01 [id number] tablet by i ty of tablet 00:00: mouth [place] 00 daily. [facility] aspirin 81 2019- Yes [id number] 81mg Take 1 [facility] mg chewable 0-01 [id number] tablet by i ty of tablet 00:00: mouth [place] 00 daily. [facility] aspirin 81 2019- Yes [id number] 81mg Take 1 [facility] mg chewable 0-01 [id number] tablet by i ty of tablet 00:00: mouth [place] 00 daily. [facility] aspirin 81 2020- Yes [id number] 81mg Take 1 [facility] mg chewable 0-01 [id number] tablet by i ty of tablet 00:00: mouth [place] 00 daily. [facility] aspirin 81 2020- Yes [id number] 81mg Take 1 [facility] chewable 0-01 [id number] tablet by i ty of tablet 00:00: mouth [place] 00 daily. [facility] aspirin 81 2020- Yes [id number] 81mg Take 1 [facility] mg chewable 0-01 [id number] tablet by i ty of tablet 00:00: mouth [place] 00 daily. [facility] aspirin 81 2020- Yes [id number] 81mg Take 1 [facility] mg chewable 0-01 [id number] tablet by i ty of tablet 00:00: mouth [place] 00 daily. [facility] aspirin 81 2020- Yes [id number] 81mg Take 1 [facility] mg chewable 0-01 [id number] tablet by i ty of tablet 00:00: mouth [place] 00 daily. [facility] aspirin 81 2020- Yes [id number] 81mg Take 1 [facility] mg chewable 0-01 [id number] tablet by i ty of tablet 00:00: mouth [place] 00 daily. [facility] aspirin 81 2020- Yes [id number] 81mg Take 1 [facility] mg chewable 0-01 [id number] tablet by i ty of tablet 00:00: mouth [place] 00 daily. [facility] aspirin 81 2020- Yes [id number] 81mg Take 1 [facility] chewable 0-01 [id number] tablet by i ty of tablet 00:00: mouth [place] 00 daily. [facility] aspirin 81 2020- Yes [id number] 81mg Take 1 [facility] chewable 0-01 [id number] tablet by i ty of tablet 00:00: mouth [place] 00 daily. [facility] aspirin 81 2020- Yes [id number] 81mg Take 1 [facility] chewable 0-01 [id number] tablet by i ty of tablet 00:00: mouth [place] 00 daily. [facility] aspirin 81 2020- Yes [id number] 81mg Take 1 [facility] chewable 0-01 [id number] tablet by i ty of tablet 00:00: mouth [place] 00 daily. [facility] aspirin 81 2020- Yes [id number] 81mg Take 1 [facility] chewable 0-01 [id number] tablet by i ty of tablet 00:00: mouth [place] 00 daily. [facility] aspirin 81 2020- Yes [id number] 81mg Take 1 [facility] mg chewable 0-01 [id number] tablet by i ty of tablet 00:00: mouth [place] 00 daily. [facility] aspirin 81 2020- Yes [id number] 81mg Take 1 [facility] chewable 0-01 [id number] tablet by i ty of tablet 00:00: mouth [place] 00 daily. [facility] aspirin 81 2020- Yes [id number] 81mg Take 1 [facility] chewable 0-01 [id number] tablet by i ty of tablet 00:00: mouth [place] 00 daily. [facility] aspirin 81 2020- Yes [id number] 81mg Take 1 [facility] chewable 0-01 [id number] tablet by i ty of tablet 00:00: mouth [place] 00 daily. [facility] aspirin 81 2020- Yes [id number] 81mg Take 1 [facility] mg chewable 0-01 [id number] tablet by i ty of tablet 00:00: mouth [place] 00 daily. [facility] aspirin 81 2020- Yes [id number] 81mg Take 1 [facility] mg chewable 0-01 [id number] tablet by i ty of tablet 00:00: mouth [place] 00 daily. [facility] aspirin 81 2020- Yes [id number] 81mg Take 1 [facility] mg chewable 0-01 [id number] tablet by i ty of tablet 00:00: mouth [place] 00 daily. [facility] aspirin 81 2020- Yes [id number] 81mg Take 1 [facility] chewable 0-01 [id number] tablet by i ty of tablet 00:00: mouth [place] 00 daily. [facility] aspirin 81 2019- Yes [id number] 81mg Take 1 [facility] chewable 0-01 [id number] tablet by i ty of tablet 00:00: mouth [place] 00 daily. [facility] aspirin 81 2019- Yes [id number] 81mg Take 1 [facility] chewable 0-01 [id number] tablet by i ty of tablet 00:00: mouth [place] 00 daily. [facility] aspirin 81 2019- Yes [id number] 81mg Take 1 [facility] chewable 0-01 [id number] tablet by i ty of tablet 00:00: mouth [place] 00 daily. [facility] aspirin 81 2019- Yes [id number] 81mg Take 1 [facility] chewable 0-01 [id number] tablet by i ty of tablet 00:00: mouth [place] 00 daily. [facility] aspirin 81 2019- Yes [id number] 81mg Take 1 [facility] mg chewable 0-01 [id number] tablet by i ty of tablet 00:00: mouth [place] 00 daily. [facility] aspirin 81 2020- Yes [id number] 81mg Take 1 [facility] mg chewable 0-01 [id number] tablet by i ty of tablet 00:00: mouth [place] 00 daily. [facility] aspirin 81 2020- Yes [id number] 81mg Take 1 [facility] mg chewable 0-01 [id number] tablet by i ty of tablet 00:00: mouth [place] 00 daily. [facility] aspirin 81 2020- Yes [id number] 81mg Take 1 [facility] chewable 0-01 [id number] tablet by i ty of tablet 00:00: mouth [place] 00 daily. [facility] aspirin 81 2020- Yes [id number] 81mg Take 1 [facility] mg chewable 0-01 [id number] tablet by i ty of tablet 00:00: mouth [place] 00 daily. [facility] aspirin 81 2020- Yes [id number] 81mg Take 1 [facility] mg chewable 0-01 [id number] tablet by i ty of tablet 00:00: mouth [place] 00 daily. [facility] aspirin 81 2020- Yes [id number] 81mg Take 1 [facility] mg chewable 0-01 [id number] tablet by i ty of tablet 00:00: mouth [place] 00 daily. [facility] aspirin 81 2020- Yes [id number] 81mg Take 1 [facility] mg chewable 0-01 [id number] tablet by i ty of tablet 00:00: mouth [place] 00 daily. [facility] aspirin 81 2020- Yes [id number] 81mg Take 1 [facility] mg chewable 0-01 [id number] tablet by i ty of tablet 00:00: mouth [place] 00 daily. [facility] aspirin 81 2020- Yes [id number] 81mg Take 1 [facility] mg chewable 0-01 [id number] tablet by i ty of tablet 00:00: mouth [place] 00 daily. [facility] aspirin 81 2020- Yes [id number] 81mg Take 1 [facility] mg chewable 0-01 [id number] tablet by i ty of tablet 00:00: mouth [place] 00 daily. [facility] aspirin 81 2020- Yes [id number] 81mg Take 1 [facility] mg chewable 0-01 [id number] tablet by i ty of tablet 00:00: mouth [place] 00 daily. [facility] aspirin 81 2020- Yes [id number] 81mg Take 1 [facility] mg chewable 0-01 [id number] tablet by i ty of tablet 00:00: mouth [place] 00 daily. [facility] aspirin 81 2020- Yes [id number] 81mg Take 1 [facility] mg chewable 0-01 [id number] tablet by i ty of tablet 00:00: mouth [place] 00 daily. [facility] aspirin 81 2020- Yes [id number] 81mg Take 1 [facility] mg chewable 0-01 [id number] tablet by i ty of tablet 00:00: mouth [place] 00 daily. [facility] aspirin 81 2020- Yes [id number] 81mg Take 1 [facility] mg chewable 0-01 [id number] tablet by i ty of tablet 00:00: mouth [place] 00 daily. [facility] aspirin 81 2020- Yes [id number] 81mg Take 1 [facility] mg chewable 0-01 [id number] tablet by i ty of tablet 00:00: mouth [place] 00 daily. [facility] aspirin 81 2020- Yes [id number] 81mg Take 1 [facility] mg chewable 0-01 [id number] tablet by i ty of tablet 00:00: mouth [place] 00 daily. [facility] aspirin 81 2020- Yes [id number] 81mg Take 1 [facility] mg chewable 0-01 [id number] tablet by i ty of tablet 00:00: mouth [place] 00 daily. [facility] aspirin 81 2020- Yes [id number] 81mg Take 1 [facility] mg chewable 0-01 [id number] tablet by i ty of tablet 00:00: mouth [place] 00 daily. [facility] aspirin 81 2020- Yes [id number] 81mg Take 1 [facility] mg chewable 0-01 [id number] tablet by i ty of tablet 00:00: mouth [place] 00 daily. [facility] aspirin 81 2019- Yes [id number] 81mg Take 1 [facility] mg chewable 0-01 [id number] tablet by i ty of tablet 00:00: mouth [place] 00 daily. [facility] aspirin 81 2019- Yes [id number] 81mg Take 1 [facility] mg chewable 0-01 [id number] tablet by i ty of tablet 00:00: mouth [place] 00 daily. [facility] aspirin 81 2019- Yes [id number] 81mg Take 1 [facility] mg chewable 0-01 [id number] tablet by i ty of tablet 00:00: mouth [place] 00 daily. [facility] aspirin 81 2019- Yes [id number] 81mg Take 1 [facility] mg chewable 0-01 [id number] tablet by i ty of tablet 00:00: mouth [place] 00 daily. [facility] aspirin 81 2019- Yes [id number] 81mg Take 1 [facility] mg chewable 0-01 [id number] tablet by i ty of tablet 00:00: mouth [place] 00 daily. [facility] aspirin 81 2020- Yes [id number] 81mg Take 1 [facility] mg chewable 0-01 [id number] tablet by i ty of tablet 00:00: mouth [place] 00 daily. [facility] aspirin 81 2020- Yes [id number] 81mg Take 1 [facility] mg chewable 0-01 [id number] tablet by i ty of tablet 00:00: mouth [place] 00 daily. [facility] aspirin 81 2020- Yes [id number] 81mg Take 1 [facility] mg chewable 0-01 [id number] tablet by i ty of tablet 00:00: mouth [place] 00 daily. [facility] aspirin 81 2020- Yes [id number] 81mg Take 1 [facility] mg chewable 0-01 [id number] tablet by i ty of tablet 00:00: mouth [place] 00 daily. [facility] aspirin 81 2020- Yes [id number] 81mg Take 1 [facility] mg chewable 0-01 [id number] tablet by i ty of tablet 00:00: mouth [place] 00 daily. [facility] aspirin 81 2020- Yes [id number] 81mg Take 1 [facility] mg chewable 0-01 [id number] tablet by i ty of tablet 00:00: mouth [place] 00 daily. [facility] aspirin 81 2019- Yes [id number] 81mg Take 1 [facility] mg chewable 0-01 [id number] tablet by i ty of tablet 00:00: mouth [place] 00 daily. [facility] aspirin 81 2020- Yes [id number] 81mg Take 1 [facility] mg chewable 0-01 [id number] tablet by i ty of tablet 00:00: mouth [place] 00 daily. [facility] aspirin 81 2019- Yes [id number] 81mg Take 1 [facility] mg chewable 0-01 [id number] tablet by i ty of tablet 00:00: mouth [place] 00 daily. [facility] aspirin 81 2019- Yes [id number] 81mg Take 1 [facility] mg chewable 0-01 [id number] tablet by i ty of tablet 00:00: mouth [place] 00 daily. [facility] aspirin 81 2019- Yes [id number] 81mg Take 1 [facility] mg chewable 0-01 [id number] tablet by i ty of tablet 00:00: mouth [place] 00 daily. [facility] aspirin 81 2019-02 Yes [id number] 81mg Take 1 [facility] mg chewable 0-01 [id number] tablet by i ty of tablet 00:00: mouth [place] 00 daily. [facility] aspirin 81 2019- Yes [id number] 81mg Take 1 [facility] mg chewable 0-01 [id number] tablet by i ty of tablet 00:00: mouth [place] 00 daily. [facility] aspirin 81 2020- Yes [id number] 81mg Take 1 [facility] mg chewable 0-01 [id number] tablet by i ty of tablet 00:00: mouth [place] 00 daily. [facility] aspirin 81 2020- Yes [id number] 81mg Take 1 [facility] mg chewable 0-01 [id number] tablet by i ty of tablet 00:00: mouth [place] 00 daily. [facility] aspirin 81 2019- Yes [id number] 81mg Take 1 [facility] mg chewable 0-01 [id number] tablet by i ty of tablet 00:00: mouth [place] 00 daily. [facility] aspirin 81 2020- Yes [id number] 81mg Take 1 [facility] mg chewable 0-01 [id number] tablet by i ty of tablet 00:00: mouth [place] 00 daily. [facility] pantoprazol 2019-2021- No [id number] 20mg Take 1 [facility] e 20 mg EC 0-01 07-15 tablet by ity of tablet 00:00: 00:00 mouth [place] 00 :00 daily. Medical Take 30 Branch mins before breakfast. pantoprazol 2019-02- No [id number] 20mg Take 1 [facility] e 20 mg [...] for premedicat ion hydrALAZINE 2020-0 Yes 50mg Q.[id number] Take [address] [facility] (APRESOLINE 2-17 [id number] by [facility] ) 50 MG 00:00: 3D (three) [facility] tablet 00 times Center daily . hydroCHLORO 2020-0 Yes 25mg QD Take [address] [facility] thiazide 2-17 [facility] (HYDRODIURI 00:00: daily. [facility]) 25 MG 00 Center tablet hydrALAZINE 2020-0 Yes 50mg Q.[id number] Take [address] [facility] (APRESOLINE 2-17 [id number] by [facility] ) 50 MG 00:00: 3D (three) Medical tablet 00 times Center daily . hydroCHLORO 2020-0 Yes 25mg QD Take [address] [facility] thiazide 2-17 [facility] (HYDRODIURI 00:00: daily. [facility] 25 MG 00 Center tablet hydrALAZINE 2020-0 Yes 50mg Q.[id number] Take [address] [facility] (APRESOLINE 2-17 [id number] by [facility] ) 50 MG 00:00: 3D (three) Medical tablet 00 times Center daily . hydroCHLORO 2020-0 Yes 25mg QD Take [address] [facility] thiazide 2-17 by [facility] (HYDRODIURI 00:00: daily. [facility] 25 MG 00 [facility] tablet hydrALAZINE 2020-0 Yes 50mg Q.[id number] Take [address] [facility] (APRESOLINE 2-17 [id number] by [facility] ) 50 MG 00:00: 3D (three) Medical tablet 00 times Center daily . hydroCHLORO 2020-0 Yes 25mg QD Take [address] [facility] thiazide 2-17 by [facility] (HYDRODIURI 00:00: daily. [facility] 25 MG 00 Center tablet hydrALAZINE 2020-0 Yes 50mg Q.[id number] Take [address] [facility] (APRESOLINE 2-17 [id number] by [facility] ) 50 MG 00:00: 3D (three) Medical tablet 00 times Center daily . hydroCHLORO 2020-0 Yes 25mg QD Take [address] [facility] thiazide 2-17 by [facility] (HYDRODIURI 00:00: daily. [facility] 25 MG 00 Center tablet hydrALAZINE 2020-0 Yes 50mg Q.[id number] Take [address] [facility] (APRESOLINE 2-17 [id number] by [facility] ) 50 MG 00:00: 3D (three) Medical tablet 00 times Center daily . hydroCHLORO 2020-0 Yes 25mg QD Take [address] [facility] thiazide 2-17 by [facility] (HYDRODIURI 00:00: daily. [facility] 25 MG 00 Center tablet hydrALAZINE 2020-0 Yes 50mg Q.[id number] Take [address] [facility] (APRESOLINE 2-17 [id number] by [facility] ) 50 MG 00:00: 3D (three) Medical tablet 00 times Center daily . hydroCHLORO 2020-0 Yes 25mg QD Take [address] [facility] thiazide 2-17 by [facility] (HYDRODIURI 00:00: daily. [facility] 25 MG 00 Center tablet hydrALAZINE 2020-0 Yes 50mg Q.[id number] Take [address] [facility] (APRESOLINE 2-17 [id number] by [facility] ) 50 MG 00:00: 3D (three) Medical tablet 00 times Center daily . hydroCHLORO 2020-0 Yes 25mg QD Take [address] [facility] thiazide 2-17 by [facility] (HYDRODIURI 00:00: daily. [facility]) 25 MG 00 Center tablet hydrALAZINE 2020-0 Yes 50mg Q.[id number] Take [address] [facility] (APRESOLINE 2-17 [id number] by [facility] ) 50 MG 00:00: 3D (three) Medical tablet 00 times Center daily . hydroCHLORO 2020-0 Yes 25mg QD Take [address] [facility] thiazide 2-17 by [facility] (HYDRODIURI 00:00: daily. [facility] 25 MG 00 Center tablet hydrALAZINE 2020-0 Yes 50mg Q.[id number] Take [address] [facility] (APRESOLINE 2-17 [id number] by [facility] ) 50 MG 00:00: 3D (three) Medical tablet 00 times Center daily . hydroCHLORO 2020-0 Yes 25mg QD Take [address] [facility] thiazide 2-17 by [facility] (HYDRODIURI 00:00: daily. [facility] 25 MG 00 Center tablet hydrALAZINE 2020-0 Yes 50mg Q.[id number] Take [address] [facility] (APRESOLINE 2-17 [id number] by [facility] ) 50 MG 00:00: 3D (three) Medical tablet 00 times Center daily . hydroCHLORO 2020-0 Yes 25mg QD Take [address] [facility] thiazide 2-17 by [facility] (HYDRODIURI 00:00: daily. [facility]) 25 MG 00 Center tablet hydrALAZINE 2020-0 Yes 50mg Q.[id number] Take [address] [facility] (APRESOLINE 2-17 [id number] by [facility] ) 50 MG 00:00: 3D (three) Medical tablet 00 times Center daily . hydroCHLORO 2020-0 Yes 25mg QD Take [address] [facility] thiazide 2-17 by [facility] (HYDRODIURI 00:00: daily. [facility]) 25 MG 00 Center tablet hydrALAZINE 2020-0 Yes 50mg Q.[id number] Take [address] [facility] (APRESOLINE 2-17 [id number] by [facility] ) 50 MG [...] by [facility] tablet 00:00: daily. [address] aspirin 81 2019-0 Yes 81mg QD Take [address] [facility] chewable 6-21 by mouth [facility] tablet 00:00: daily. [address] aspirin 81 2019-0 Yes 81mg QD Take [address] [facility] chewable 6-21 by mouth [facility] tablet 00:00: daily. [address] aspirin 81 2019-0 Yes 81mg QD Take [address] [facility] chewable 6-21 by mouth [facility] tablet 00:00: daily. [address] aspirin 81 2019-0 Yes 81mg QD Take [address] [facility] chewable 6-21 by mouth [facility] tablet 00:00: daily. [address] aspirin 81 2019-0 Yes 81mg QD Take [address] [facility] chewable 6-21 by mouth [facility] tablet 00:00: daily. [address] aspirin 81 2019-0 Yes 81mg QD Take [address] [facility] chewable 6-21 by mouth [facility] tablet 00:00: daily. [address] aspirin 81 2019-0 Yes 81mg QD Take [address] [facility] chewable 6-21 by mouth [facility] tablet 00:00: daily. [address] aspirin 81 2019-0 Yes 81mg QD Take [address] [facility] chewable 6-21 by mouth [facility] tablet 00:00: daily. [address] aspirin 81 2019-0 Yes 81mg QD Take [address] [facility] chewable 6-21 by mouth [facility] tablet 00:00: daily. [address] aspirin 81 2019-0 Yes 81mg QD Take [address] [facility] chewable 6-21 by mouth [facility] tablet 00:00: daily. [address] aspirin 81 2019-0 Yes 81mg QD Take [address] [facility] chewable 6-21 by mouth [facility] tablet 00:00: daily. [address] aspirin 81 2019-0 Yes 81mg QD Take [address] [facility] chewable 6-21 by mouth [facility] tablet 00:00: daily. [address] atorvastati 2017- Yes 40mg QD Take [address] [facility] (LIPITOR) 1-30 by mouth [facility] 40 MG 00:00: daily. Medical [address] amLODIPine 2017-02 Yes 2.5mg QD Take 2.[address] (NORVASC) 5 1-30 mg [facility] tablet 00:00: mouth [facility] 00 daily . [place] atorvastati 2017-02 Yes 40mg QD Take [address] [facility] (LIPITOR) 1-30 by mouth [facility] 40 MG 00:00: daily. Medical tablet 00 [place] amLODIPine 2017-02 Yes 2.5mg QD Take 2.[address] (NORVASC) 5 1-30 mg by [facility] tablet 00:00: mouth [facility] 00 daily . [place] atorvastati 2017-02 Yes 40mg QD Take [address] [facility] (LIPITOR) 1-30 by mouth [facility] 40 MG 00:00: daily. Medical tablet 00 [place] amLODIPine 2017-02 Yes 2.5mg QD Take 2.[address] (NORVASC) 5 1-30 mg by [facility] tablet 00:00: mouth [facility] 00 daily . [place] atorvastati 2017-02 Yes 40mg QD Take [address] [facility] (LIPITOR) 1-30 by mouth [facility] 40 MG 00:00: daily. Medical tablet 00 [place] amLODIPine 2017-02 Yes 2.5mg QD Take 2.[address] (NORVASC) 5 1-30 mg by [facility] tablet 00:00: mouth [facility] 00 daily . [place] atorvastati 2017-02 Yes 40mg QD Take [address] [facility] (LIPITOR) 1-30 by mouth [facility] 40 MG 00:00: daily. Medical tablet 00 [place] amLODIPine 2017-02 Yes 2.5mg QD Take 2.[address] (NORVASC) 5 1-30 mg by [facility] tablet 00:00: mouth [facility] 00 daily . [place] atorvastati 2017-02 Yes 40mg QD Take [address] [facility] (LIPITOR) 1-30 by mouth [facility] 40 MG 00:00: daily. Medical tablet 00 [place] amLODIPine 2017-02 Yes 2.5mg QD Take 2.[address] (NORVASC) 5 1-30 mg by [facility] tablet 00:00: mouth [facility] 00 daily . [place] atorvastati 2017-02 Yes 40mg QD Take [address] [facility] (LIPITOR) 1-30 by mouth [facility] 40 MG 00:00: daily. Medical tablet 00 [place] amLODIPine 2017-02 Yes 2.5mg QD Take 2.[address] (NORVASC) 5 1-30 mg by [facility] tablet 00:00: mouth [facility] 00 daily . [place] atorvastati 2017-02 Yes 40mg QD Take [address] [facility] (LIPITOR) 1-30 by mouth [facility] 40 MG 00:00: daily. Medical tablet 00 [place] amLODIPine 2017-02 Yes 2.5mg QD Take 2.[address] (NORVASC) 5 1-30 mg by [facility] tablet 00:00: mouth Medical 00 daily . [place] atorvastati 2017-02 Yes 40mg QD Take [address] [facility] (LIPITOR) 1-30 by mouth [facility] 40 MG 00:00: daily. Medical tablet 00 [place] amLODIPine 2017-02 Yes 2.5mg QD Take 2.[address] (NORVASC) 5 1-30 mg by [facility] tablet 00:00: mouth [facility] 00 daily . [place] atorvastati 2017-02 Yes 40mg QD Take [address] [facility] (LIPITOR) 1-30 by mouth [facility] 40 MG 00:00: daily. Medical tablet 00 [place] amLODIPine 2017-02 Yes 2.5mg QD Take 2.[address] (NORVASC) 5 1-30 mg by [facility] tablet 00:00: mouth Medical 00 daily . [place] atorvastati 2017-02 Yes 40mg QD Take [address] [facility] (LIPITOR) 1-30 by mouth [facility] 40 MG 00:00: daily. Medical tablet 00 [place] amLODIPine 2017-02 Yes 2.5mg QD Take 2.[address] (NORVASC) 5 1-30 mg by [facility] tablet 00:00: mouth Medical 00 daily . [place] atorvastati 2017-02 Yes 40mg QD Take [address] [facility] (LIPITOR) 1-30 by mouth [facility] 40 MG 00:00: daily. Medical tablet 00 [place] amLODIPine 2017-02 Yes 2.5mg QD Take 2.[address] (NORVASC) 5 1-30 mg by [facility] tablet 00:00: mouth Medical 00 daily . [place] atorvastati 2017-02 Yes 40mg QD Take [address] [facility] (LIPITOR) 1-30 by mouth [facility] 40 MG 00:00: daily. Medical tablet 00 Center amLODIPine 2018- Yes 2.5mg QD Take 2.[address] [facility] [address] (NORVASC) 5 1-30 mg [facility] tablet 00:00: mouth Medical 00 daily . Center Immunizations Ordered Filled Date Status Comments Source Immunization Name Immunization Name Pneumococcal 20 2022-05-17 [facility]pleted [facility] PCV20 00:00:00 [facility] (Prevnar 20) Branch Pneumococcal 20 2022-05-17 Completed [facility] Conjugate, PCV20 00:00:00 [facility] dical (Prevnar 20) Branch Pneumococcal 20 2022-05-17 Completed [facility] Conjugate, PCV20 00:00:00 [facility] dical (Prevnar 20) Branch Pneumococcal 20 2022-05-17 Completed [facility] Conjugate, PCV20 00:00:00 [facility] dical (Prevnar 20) Branch Pneumococcal 20 2022-05-17 Completed [facility] Conjugate, PCV20 00:00:00 [facility] dical (Prevnar 20) Branch Pneumococcal 20 2022-05-17 Completed [facility] Conjugate, PCV20 00:00:00 [facility] dical (Prevnar 20) Branch Pneumococcal 20 2022-05-17 Completed [facility] Conjugate, PCV20 00:00:00 [facility] dical (Prevnar 20) Branch Pneumococcal 20 2022-05-17 Completed [facility] Conjugate, PCV20 00:00:00 [facility] dical (Prevnar 20) Branch Pneumococcal 20 2022-05-17 Completed [facility] Conjugate, PCV20 00:00:00 [facility] dical (Prevnar 20) Branch Pneumococcal 20 2022-05-17 Completed [facility] Conjugate, PCV20 00:00:00 [facility] dical (Prevnar 20) Branch Pneumococcal 20 2022-05-17 Completed [facility] Conjugate, PCV20 00:00:00 [facility] dical (Prevnar 20) Branch Pneumococcal 20 2022-05-17 Completed [facility] Conjugate, PCV20 00:00:00 [facility] dical (Prevnar 20) Branch Pneumococcal 20 2022-05-17 Completed [facility] Conjugate, PCV20 00:00:00 [facility] dical (Prevnar 20) Branch Pneumococcal 20 2022-05-17 Completed [facility] Conjugate, PCV20 00:00:00 [facility] dical (Prevnar 20) Branch Pneumococcal 20 [...] [facility] Conjugate, PCV20 00:00:00 [facility] (Prevnar 20) Branch Pneumococcal 20 2022-05-17 [...] [facility] Conjugate, PCV20 00:00:00 [facility] (Prevnar 20) Branch Pneumococcal 20 2022-05-17 [...] [facility] Conjugate, PCV20 00:00:00 [facility] (Prevnar 20) Branch Pneumococcal 20 2022-05-17 [...] [facility] Conjugate, PCV20 00:00:00 [facility] (Prevnar 20) Branch Pneumococcal 20 2022-05-17 [...] [facility] Conjugate, PCV20 00:00:00 [facility] (Prevnar 20) Branch Pneumococcal 20 2022-05-17 Completed [facility] Conjugate, PCV20 00:00:00 [facility] (Prevnar 20) Branch Pneumococcal 20 2022-05-17 Completed [facility] Conjugate, PCV20 00:00:00 [facility] (Prevnar 20) Branch Pneumococcal 20 2022-05-17 Completed [facility] Conjugate, PCV20 00:00:00 [facility] (Prevnar 20) Branch Pneumococcal 20 2022-05-17 Completed [facility] Conjugate, PCV20 00:00:00 [place] [facility] (Prevnar 20) Branch Pneumococcal 20 2022-05-17 Completed [facility] Conjugate, PCV20 00:00:00 [facility] (Prevnar 20) Branch Pneumococcal 20 2022-05-17 Completed [facility] Conjugate, PCV20 00:00:00 [place] [facility] (Prevnar 20) Branch Pneumococcal 20 2022-05-17 Completed [facility] Conjugate, PCV20 00:00:00 [place] [facility] (Prevnar 20) Branch Pneumococcal 20 2022-05-17 Completed [facility] Conjugate, PCV20 00:00:00 [facility] dical (Prevnar 20) Branch Pneumococcal 20 2022-05-17 Completed [facility] Conjugate, PCV20 00:00:00 [facility] dical (Prevnar 20) Branch Pneumococcal 20 2022-05-17 Completed [facility] Conjugate, PCV20 00:00:00 [facility] dical (Prevnar 20) Branch Influenza Virus [...] Completed [facility] 00:00:00 [facility] Influenza High Dose 2019-11-08 Completed [facility] 00:00:00 [facility] Influenza High Dose 2019-11-08 Completed [facility] 00:00:00 [facility] Influenza High Dose 2019-11-08 Completed [facility] 00:00:00 [facility] Influenza High Dose 2019-11-08 Completed [facility] 00:00:00 [facility] Influenza High Dose 2019-11-08 Completed [facility] 00:00:00 [facility] Influenza High Dose 2019-11-08 Completed [facility] 00:00:00 [facility] Influenza High Dose 2019-11-08 Completed [facility] 00:00:00 [facility] Influenza High Dose 2019-11-08 Completed [facility] 00:00:00 [facility] Influenza High Dose 2019-11-08 Completed [facility] 00:00:00 [facility] Influenza High Dose 2019-11-08 Completed [facility] 00:00:00 [facility] Influenza High Dose 2019-11-08 Completed [facility] 00:00:00 [facility] Influenza High Dose 2019-11-08 Completed [facility] 00:00:00 [facility] Influenza High Dose 2019-11-08 Completed [facility] 00:00:00 [facility] Influenza High Dose 2019-11-08 Completed [facility] 00:00:00 [facility] Influenza High Dose 2019-11-08 Completed [facility] 00:00:00 [facility] Influenza High Dose 2019-11-08 Completed [facility] 00:00:00 [facility] Influenza High Dose 2019-11-08 Completed [facility]ive [facility]ity of 00:00:00 [facility] Influenza High Dose 2019-11-08 Completed [facility] 00:00:00 [facility] Influenza High Dose 2019-11-08 Completed [facility]ity of 00:00:00 [facility] Influenza High Dose 2019-11-08 Completed [facility] 00:00:00 [facility] Influenza High Dose 2019-11-08 Completed [facility]ive [facility]ity of 00:00:00 [facility] Influenza High Dose 2019-11-08 Completed [facility] 00:00:00 [facility] Influenza High Dose 2019-11-08 Completed [facility]ity of 00:00:00 [facility] Influenza High Dose 2019-11-08 Completed [facility] 00:00:00 [facility] Influenza High Dose 2019-11-08 Completed [facility] of 00:00:00 [facility] Influenza High Dose 2019-11-08 Completed [facility] 00:00:00 [facility] Influenza High Dose 2019-11-08 Completed [facility]ity of 00:00:00 [facility] Influenza High Dose 2019-11-08 Completed [facility] 00:00:00 [facility] Influenza High Dose 2019-11-08 Completed [facility]ity of 00:00:00 [facility] Influenza High Dose 2019-11-08 Completed [facility] 00:00:00 [facility] Influenza High Dose 2019-11-08 Completed [facility] of 00:00:00 [facility] Influenza High Dose 2019-11-08 Completed [facility] 00:00:00 [facility] Influenza High Dose 2019-11-08 Completed [facility]ity of 00:00:00 [facility] Influenza High Dose 2019-11-08 Completed [facility] 00:00:00 [facility] Influenza High Dose 2019-11-08 Completed [facility] of 00:00:00 [facility] Influenza High Dose 2019-11-08 Completed [facility] 00:00:00 [facility] Influenza High Dose 2019-11-08 Completed [facility] of 00:00:00 [facility] Influenza High Dose 2019-11-08 Completed [facility] 00:00:00 [facility] Influenza High Dose 2019-11-08 Completed [facility]ity of 00:00:00 [facility] Influenza High Dose 2019-11-08 Completed [facility] 00:00:00 [facility] Influenza High Dose 2019-11-08 Completed [facility]ity of 00:00:00 [facility] Influenza High Dose 2019-11-08 Completed [facility] 00:00:00 [facility] Influenza High Dose 2019-11-08 Completed [facility]ity of 00:00:00 [facility] Influenza High Dose 2019-11-08 Completed [facility] 00:00:00 [facility] Influenza High Dose 2019-11-08 Completed [facility]ity of 00:00:00 [facility] Influenza High Dose 2019-11-08 Completed [facility] 00:00:00 [facility] Influenza High Dose 2019-11-08 Completed [facility]ity of 00:00:00 [facility] Influenza High Dose 2019-11-08 Completed [facility] 00:00:00 [facility] Influenza High Dose 2019-11-08 Completed [facility]ity of 00:00:00 [facility] Influenza High Dose 2019-11-08 Completed [facility] 00:00:00 [facility] Influenza High Dose 2019-11-08 Completed [facility]ity of 00:00:00 [facility] Influenza High Dose 2019-11-08 Completed [facility] 00:00:00 [facility] Influenza High Dose 2019-11-08 Completed [facility]ity of 00:00:00 [facility] Influenza High Dose 2019-11-08 Completed [facility] 00:00:00 [facility] Influenza High Dose 2019-11-08 Completed [facility]ive [facility]ity of 00:00:00 [facility] Influenza High Dose 2019-11-08 Completed [facility] 00:00:00 [facility] Influenza High Dose 2019-11-08 Completed [facility]ity of 00:00:00 [facility] Influenza High Dose 2019-11-08 Completed [facility] 00:00:00 [facility] Influenza High Dose 2019-11-08 Completed [facility]ity of 00:00:00 [facility] Influenza High Dose 2019-11-08 Completed [facility] 00:00:00 [facility] Influenza High Dose 2019-11-08 Completed [facility]ive [facility]ity of 00:00:00 [facility] Influenza High Dose 2019-11-08 Completed [facility] 00:00:00 [facility] Influenza High Dose 2019-11-08 Completed [facility]ity of 00:00:00 [facility] Influenza High Dose 2019-11-08 Completed [facility] 00:00:00 [facility] Influenza High Dose 2019-11-08 Completed [facility]ity of 00:00:00 [facility] Influenza High Dose 2019-11-08 Completed [facility] 00:00:00 [facility] Influenza High Dose 2019-11-08 Completed [facility]ity of 00:00:00 [facility] Influenza High Dose 2019-11-08 Completed [facility] 00:00:00 [facility] Influenza High Dose 2019-11-08 Completed [facility]ity of 00:00:00 [facility] Influenza High Dose 2019-11-08 Completed [facility] 00:00:00 [facility] Influenza High Dose 2019-11-08 Completed [facility]ive [facility]ity of 00:00:00 [facility] Influenza High Dose 2019-11-08 Completed [facility] 00:00:00 [facility] Influenza High Dose 2019-11-08 Completed [facility]ity of 00:00:00 [facility] Influenza High Dose 2019-11-08 Completed [facility] 00:00:00 [facility] Influenza High Dose 2019-11-08 Completed [facility]ity of 00:00:00 [facility] Influenza High Dose 2019-11-08 Completed [facility] 00:00:00 [facility] Influenza High Dose 2019-11-08 Completed [facility]ity of 00:00:00 [facility] Influenza High Dose 2019-11-08 Completed [facility] 00:00:00 [facility] Influenza High Dose 2019-11-08 Completed [facility]ity of 00:00:00 [facility] Influenza High Dose 2019-11-08 Completed [facility] 00:00:00 [facility] Influenza High Dose 2019-11-08 Completed [facility]ity of 00:00:00 [facility] Influenza High Dose 2019-11-08 Completed [facility] 00:00:00 [facility] Influenza High Dose 2019-11-08 Completed Unive [facility]ity of 00:00:00 [facility] Influenza High Dose 2019-11-08 Completed [facility] 00:00:00 [facility] Influenza High Dose 2019-11-08 Completed [facility]ity of 00:00:00 [facility] Influenza High Dose 2019-11-08 Completed [facility] 00:00:00 [facility] Influenza High Dose 2019-11-08 Completed [facility]ity of 00:00:00 [facility] Influenza High Dose 2019-11-08 Completed [facility] 00:00:00 [facility] Influenza High Dose 2019-11-08 Completed [facility]ity of 00:00:00 [facility] Influenza High Dose 2019-11-08 Completed [facility] 00:00:00 [facility] Influenza High Dose 2019-11-08 Completed [facility] of 00:00:00 [facility] Influenza High Dose 2019-11-08 Completed [facility] 00:00:00 [facility] Influenza High Dose 2019-11-08 Completed [facility] of 00:00:00 [facility] Influenza High Dose 2019-11-08 Completed [facility] 00:00:00 [facility] Influenza High Dose 2019-11-08 Completed [facility]ity of 00:00:00 [facility] Influenza High Dose 2019-11-08 Completed [facility] 00:00:00 [facility] Influenza High Dose 2019-11-08 Completed [facility] of 00:00:00 [facility] Influenza High Dose 2019-11-08 Completed [facility] 00:00:00 [facility] Influenza High Dose 2019-11-08 Completed [facility] of 00:00:00 [facility] Influenza High Dose 2019-11-08 Completed [facility] 00:00:00 [facility] Influenza High Dose 2019-11-08 Completed [facility] of 00:00:00 [facility] Influenza High Dose 2019-11-08 Completed [facility] 00:00:00 [facility] Influenza High Dose 2019-11-08 Completed [facility] of 00:00:00 [facility] Influenza High Dose 2019-11-08 Completed [facility] 00:00:00 [facility] Influenza High Dose 2019-11-08 Completed [facility] of 00:00:00 [facility] Influenza High Dose 2019-11-08 Completed [facility] 00:00:00 [facility] Influenza High Dose 2019-11-08 Completed [facility] of 00:00:00 [facility] Influenza High Dose 2019-11-08 Completed [facility] 00:00:00 [facility] Influenza High Dose 2019-11-08 Completed [facility] of 00:00:00 [facility] Influenza High Dose 2019-11-08 Completed [facility] 00:00:00 [facility] Influenza High Dose 2019-11-08 Completed [facility] of 00:00:00 [facility] Influenza High Dose 2019-11-08 Completed [facility] 00:00:00 [facility] Influenza High Dose 2019-11-08 Completed [facility] of 00:00:00 [facility] Influenza High Dose 2019-11-08 Completed [facility] 00:00:00 [facility] Influenza High Dose 2019-11-08 Completed [facility] of 00:00:00 [facility] Influenza High Dose 2019-11-08 Completed [facility] 00:00:00 [facility] Influenza High Dose 2019-11-08 Completed [facility] of 00:00:00 [facility] Influenza High Dose 2019-11-08 Completed [facility] 00:00:00 [facility] Influenza High Dose 2019-11-08 Completed [facility] of 00:00:00 [facility] Influenza High Dose 2019-11-08 Completed [facility] 00:00:00 [facility] Influenza High Dose 2019-11-08 Completed [facility] of 00:00:00 [facility] Influenza High Dose 2019-11-08 Completed [facility] 00:00:00 [facility] Influenza High Dose 2019-11-08 Completed [facility] of 00:00:00 [facility] Influenza High Dose 2019-11-08 Completed [facility] 00:00:00 [facility] Influenza High Dose 2019-11-08 Completed [facility] of 00:00:00 [facility] Influenza High Dose 2019-11-08 Completed [facility] 00:00:00 [facility] Influenza High Dose 2019-11-08 Completed [facility] of 00:00:00 [facility] Influenza High Dose 2019-11-08 Completed [facility] 00:00:00 [facility] Influenza High Dose 2019-11-08 Completed [facility] of 00:00:00 [facility] Influenza High Dose 2019-11-08 Completed [facility] 00:00:00 [facility] Influenza High Dose 2019-11-08 Completed [facility] of 00:00:00 [facility] Influenza High Dose 2019-11-08 Completed [facility] 00:00:00 [facility] Influenza High Dose 2019-11-08 Completed [facility] of 00:00:00 [facility] Influenza High Dose 2019-11-08 Completed [facility] 00:00:00 [facility] Influenza High Dose 2019-11-08 Completed [facility] of 00:00:00 [facility] Influenza High Dose 2019-11-08 Completed [facility] 00:00:00 [facility] Influenza High Dose 2019-11-08 Completed [facility] of 00:00:00 [facility] Influenza High Dose 2019-11-08 Completed [facility] 00:00:00 [facility] Influenza High Dose 2019-11-08 Completed [facility] of 00:00:00 [facility] Influenza High Dose 2019-11-08 Completed [facility] 00:00:00 [facility] Influenza High Dose 2019-11-08 Completed [facility] of 00:00:00 [facility] Influenza High Dose 2019-11-08 Completed [facility] 00:00:00 [facility] Influenza High Dose 2019-11-08 Completed [facility] of 00:00:00 [facility] Influenza High Dose 2019-11-08 Completed [facility] 00:00:00 [facility] Influenza High Dose 2019-11-08 Completed [facility] of 00:00:00 [facility] Influenza High Dose 2019-11-08 Completed [facility] 00:00:00 [facility] Influenza High Dose 2019-11-08 Completed [facility] of 00:00:00 [facility] Influenza High Dose 2019-11-08 Completed [facility] 00:00:00 [facility] Influenza High Dose 2019-11-08 Completed [facility] of 00:00:00 [facility] Influenza High Dose 2019-11-08 Completed [facility] 00:00:00 [facility] Influenza High Dose 2019-11-08 Completed [facility] of 00:00:00 [facility] Influenza High Dose 2019-11-08 Completed [facility] 00:00:00 [facility] Influenza High Dose 2019-11-08 Completed [facility] of 00:00:00 [facility] Influenza High Dose 2019-11-08 Completed [facility] 00:00:00 [facility] Influenza High Dose 2019-11-08 Completed [facility] of 00:00:00 [facility] Influenza High Dose 2019-11-08 Completed [facility] 00:00:00 [facility] Influenza High Dose 2019-11-08 Completed [facility] of 00:00:00 [facility] Influenza High Dose 2019-11-08 Completed [facility] 00:00:00 [facility] Influenza High Dose 2019-11-08 Completed [facility] of 00:00:00 [facility] Influenza High Dose 2019-11-08 Completed [facility] 00:00:00 [facility] Influenza High Dose 2019-11-08 Completed [facility] of 00:00:00 [facility] Influenza High Dose 2019-11-08 Completed [facility] 00:00:00 [facility] Influenza High Dose 2019-11-08 Completed [facility] of 00:00:00 [facility] Influenza High Dose 2019-11-08 Completed [facility] 00:00:00 [facility] Influenza High Dose 2019-11-08 Completed [facility] of 00:00:00 [facility] Influenza High Dose 2019-11-08 Completed [facility] 00:00:00 [facility] Influenza High Dose 2019-11-08 Completed [facility] of 00:00:00 [facility] Influenza High Dose 2019-11-08 Completed [facility] 00:00:00 [facility] Influenza High Dose 2019-11-08 Completed [facility] of 00:00:00 [facility] Influenza High Dose 2019-11-08 Completed [facility] 00:00:00 [facility] Influenza High Dose 2019-11-08 Completed [facility] of 00:00:00 [facility] Influenza High Dose 2019-11-08 Completed [facility] 00:00:00 [facility] Influenza High Dose 2019-11-08 Completed [facility] of 00:00:00 [facility] Influenza High Dose 2019-11-08 Completed [facility] 00:00:00 [facility] Influenza High Dose 2019-11-08 Completed [facility] of 00:00:00 [facility] Influenza High Dose 2019-11-08 Completed [facility] 00:00:00 [facility] Influenza High Dose 2019-11-08 Completed [facility] of 00:00:00 [facility] Influenza High Dose 2019-11-08 Completed [facility] 00:00:00 [facility] Influenza High Dose 2019-11-08 Completed [facility] of 00:00:00 [facility] Influenza High Dose 2019-11-08 Completed [facility] 00:00:00 [facility] Influenza High Dose 2019-11-08 Completed [facility] of 00:00:00 [facility] Influenza High Dose 2019-11-08 Completed [facility] 00:00:00 [facility] Influenza High Dose 2019-11-08 Completed [facility] of 00:00:00 [facility] Influenza High Dose 2019-11-08 Completed [facility] 00:00:00 [facility] Influenza High Dose 2019-11-08 Completed [facility] of 00:00:00 [facility] Influenza High Dose 2019-11-08 Completed [facility] 00:00:00 [facility] Influenza High Dose 2019-11-08 Completed [facility] 00:00:00 [facility] Influenza High Dose 2019-11-08 Completed [facility] [place] 00:00:00 [facility] Influenza High Dose 2019-11-08 Completed [facility] of 00:00:00 [facility] Influenza High Dose 2019-11-08 Completed [facility] [place] 00:00:00 [facility] Influenza High Dose 2019-11-08 Completed [facility] of 00:00:00 [facility] Influenza High Dose 2019-11-08 Completed [facility] [place] 00:00:00 [facility] Influenza High Dose 2019-11-08 Completed [facility] of 00:00:00 [facility] Influenza High Dose 2019-11-08 Completed [facility] [place] 00:00:00 [facility] Influenza High Dose 2019-11-08 Completed [facility] of 00:00:00 [facility] Influenza High Dose 2019-11-08 Completed [facility] [place] 00:00:00 [facility] Influenza High Dose 2019-11-08 Completed [facility] of 00:00:00 [facility] Influenza High Dose 2019-11-08 Completed [facility] [place] 00:00:00 [facility] Influenza High Dose 2019-11-08 Completed [facility] of 00:00:00 [facility] Influenza High Dose 2019-11-08 Completed [facility] [place] 00:00:00 [facility] Influenza High Dose 2019-11-08 Completed [facility] of 00:00:00 [facility] Influenza High Dose 2019-11-08 Completed [facility] [place] 00:00:00 [facility] Influenza High Dose 2019-11-08 Completed [facility] of 00:00:00 [facility] Influenza High Dose 2019-11-08 Completed [facility] [place] 00:00:00 [facility] Influenza High Dose 2019-11-08 Completed [facility] of 00:00:00 [facility] Influenza High Dose 2019-11-08 Completed [facility] [place] 00:00:00 [facility] Influenza High Dose 2019-11-08 Completed [facility] of 00:00:00 [facility] Influenza High Dose 2019-11-08 Completed [facility] [place] 00:00:00 [facility] Influenza High Dose 2019-11-08 Completed [facility] of 00:00:00 [facility] Influenza High Dose 2019-11-08 Completed [facility] [place] 00:00:00 [facility] Influenza High Dose 2019-11-08 Completed [facility] of 00:00:00 [facility] Influenza High Dose 2019-11-08 Completed [facility] [place] 00:00:00 [facility] Influenza High Dose 2019-11-08 Completed [facility] of 00:00:00 [facility] Influenza High Dose 2019-02-13 Completed [facility] of 00:00:00 [facility] Influenza High Dose 2019-02-13 Completed [facility] of 00:00:00 [facility] Influenza High Dose 2019-02-13 Completed [facility] of 00:00:00 [facility] Influenza High Dose 2019-02-13 Completed [facility] of 00:00:00 [facility] Influenza High Dose 2019-02-13 Completed [facility] of 00:00:00 [facility] Influenza High Dose 2019-02-13 Completed [facility] of 00:00:00 [facility] Influenza High Dose 2019-02-13 Completed [facility] of 00:00:00 [facility] Influenza High Dose 2019-02-13 Completed [facility] of 00:00:00 [facility] Influenza High Dose 2019-02-13 Completed [facility] of 00:00:00 [facility] Influenza High Dose 2019-02-13 Completed [facility] of 00:00:00 [facility] Influenza High Dose 2019-02-13 Completed [facility] of 00:00:00 [facility] Influenza High Dose 2019-02-13 Completed [facility] of 00:00:00 [facility] Influenza High Dose 2019-02-13 Completed [facility] 00:00:00 [facility] Influenza High Dose 2019-02-13 Completed [facility] of 00:00:00 [facility] Influenza High Dose 2019-02-13 Completed [facility] of 00:00:00 [facility] Influenza High Dose 2019-02-13 Completed [facility] 00:00:00 [facility] Influenza High Dose 2019-02-13 Completed [facility] of 00:00:00 [facility] Influenza High Dose 2019-02-13 Completed [facility] of 00:00:00 [facility] Influenza High Dose 2019-02-13 Completed [facility] of 00:00:00 [facility] Influenza High Dose 2019-02-13 Completed [facility] of 00:00:00 [facility] Influenza High Dose 2019-02-13 Completed [facility] of 00:00:00 [facility] Influenza High Dose 2019-02-13 Completed [facility] of 00:00:00 [facility] Influenza High Dose 2019-02-13 Completed [facility] of 00:00:00 [facility] Influenza High Dose 2019-02-13 Completed [facility] of 00:00:00 [facility] Influenza High Dose 2019-02-13 Completed [facility] of 00:00:00 [facility] Influenza High Dose 2019-02-13 Completed [facility] of 00:00:00 [facility] Influenza High Dose 2019-02-13 Completed [facility] of 00:00:00 [facility] Influenza High Dose 2019-02-13 Completed [facility] 00:00:00 [facility] Influenza High Dose 2019-02-13 Completed [facility] of 00:00:00 [facility] Influenza High Dose 2019-02-13 Completed [facility] of 00:00:00 [facility] Influenza High Dose 2019-02-13 Completed [facility] of 00:00:00 [facility] Influenza High Dose 2019-02-13 Completed [facility] of 00:00:00 [facility] Influenza High Dose 2019-02-13 Completed [facility] of 00:00:00 [facility] Influenza High Dose 2019-02-13 Completed [facility] of 00:00:00 [facility] Influenza High Dose 2019-02-13 Completed [facility] of 00:00:00 [facility] Influenza High Dose 2019-02-13 Completed [facility] of 00:00:00 [facility] Influenza High Dose 2019-02-13 Completed [facility] of 00:00:00 [facility] Influenza High Dose 2019-02-13 Completed [facility] of 00:00:00 [facility] Influenza High Dose 2019-02-13 Completed [facility] of 00:00:00 [facility] Influenza High Dose 2019-02-13 Completed [facility] of 00:00:00 [facility] Influenza High Dose 2019-02-13 Completed [facility] of 00:00:00 [facility] Influenza High Dose 2019-02-13 Completed [facility] 00:00:00 [facility] Influenza High Dose 2019-02-13 Completed [facility] 00:00:00 [facility] Influenza High Dose 2019-02-13 Completed [facility] of 00:00:00 [facility] Influenza High Dose 2019-02-13 Completed [facility] of 00:00:00 [facility] Influenza High Dose 2019-02-13 Completed [facility] of 00:00:00 [facility] Influenza High Dose 2019-02-13 Completed [facility] of 00:00:00 [facility] Influenza High Dose 2019-02-13 Completed [facility] of 00:00:00 [facility] Influenza High Dose 2019-02-13 Completed [facility] of 00:00:00 [facility] Influenza High Dose 2019-02-13 Completed [facility] of 00:00:00 [facility] Influenza High Dose 2019-02-13 Completed [facility] of 00:00:00 [facility] Influenza High Dose 2019-02-13 Completed [facility] of 00:00:00 [facility] Influenza High Dose 2019-02-13 Completed [facility] of 00:00:00 [facility] Influenza High Dose 2019-02-13 Completed [facility] of 00:00:00 [facility] Influenza High Dose 2019-02-13 Completed [facility] of 00:00:00 [facility] Influenza High Dose 2019-02-13 Completed [facility] of 00:00:00 [facility] Influenza High Dose 2019-02-13 Completed [facility] of 00:00:00 [facility] Influenza High Dose 2019-02-13 Completed [facility] of 00:00:00 [facility] Influenza High Dose 2019-02-13 Completed [facility] 00:00:00 [facility] Influenza High Dose 2019-02-13 Completed [facility] of 00:00:00 [facility] Influenza High Dose 2019-02-13 Completed [facility] of 00:00:00 [facility] Influenza High Dose 2019-02-13 Completed [facility] 00:00:00 [facility] Influenza High Dose 2019-02-13 Completed [facility] 00:00:00 [facility] Influenza High Dose 2019-02-13 Completed [facility] 00:00:00 [facility] Influenza High Dose 2019-02-13 Completed [facility] 00:00:00 [facility] Influenza High Dose 2019-02-13 Completed [facility] of 00:00:00 [facility] Influenza High Dose 2019-02-13 Completed [facility] 00:00:00 [facility] Influenza High Dose 2019-02-13 Completed [facility] 00:00:00 [facility] Influenza High Dose 2019-02-13 Completed [facility] 00:00:00 [facility] Influenza High Dose 2019-02-13 Completed [facility] 00:00:00 [facility] Influenza High Dose 2019-02-13 Completed [facility] 00:00:00 [facility] Influenza High Dose 2019-02-13 Completed [facility] 00:00:00 [facility] Influenza High Dose 2019-02-13 Completed [facility] 00:00:00 [facility] Influenza High Dose 2019-02-13 Completed [facility] 00:00:00 [facility] Influenza High Dose 2019-02-13 Completed [facility] 00:00:00 [facility] Influenza High Dose 2019-02-13 Completed [facility] 00:00:00 [facility] Influenza High Dose 2019-02-13 Completed [facility] 00:00:00 [facility] Influenza High Dose 2019-02-13 Completed [facility] 00:00:00 [facility] Influenza High Dose 2019-02-13 Completed [facility] 00:00:00 [facility] Influenza High Dose 2019-02-13 Completed [facility] 00:00:00 [facility] Influenza High Dose 2019-02-13 Completed [facility] 00:00:00 [facility] Influenza High Dose 2019-02-13 Completed [facility] 00:00:00 [facility] Influenza High Dose 2019-02-13 Completed [facility] 00:00:00 [facility] Influenza High Dose 2019-02-13 Completed [facility] 00:00:00 [facility] Influenza High Dose 2019-02-13 Completed [facility] 00:00:00 [facility] Influenza High Dose 2019-02-13 Completed [facility] 00:00:00 [facility] Influenza High Dose 2019-02-13 Completed [facility] 00:00:00 [facility] Influenza High Dose 2019-02-13 Completed [facility] 00:00:00 [facility] Influenza High Dose 2019-02-13 Completed [facility] 00:00:00 [facility] Influenza High Dose 2019-02-13 Completed [facility] of 00:00:00 [facility] Influenza High Dose 2019-02-13 Completed [facility] 00:00:00 [facility] Influenza High Dose 2019-02-13 Completed [facility] 00:00:00 [facility] Influenza High Dose 2019-02-13 Completed [facility] 00:00:00 [facility] Influenza High Dose 2019-02-13 Completed [facility] 00:00:00 [facility] Influenza High Dose 2019-02-13 Completed [facility] 00:00:00 [facility] Influenza High Dose 2019-02-13 Completed [facility] 00:00:00 [facility] Influenza High Dose 2019-02-13 Completed [facility] 00:00:00 [facility] Influenza High Dose 2019-02-13 Completed [facility] 00:00:00 [facility] Influenza High Dose 2019-02-13 Completed [facility] 00:00:00 [facility] Influenza High Dose 2019-02-13 Completed [facility] 00:00:00 [facility] Influenza High Dose 2019-02-13 Completed [facility] 00:00:00 [facility] Influenza High Dose 2019-02-13 Completed [facility] 00:00:00 [facility] Influenza High Dose 2019-02-13 Completed [facility] 00:00:00 [facility] Influenza High Dose 2019-02-13 Completed [facility] of 00:00:00 [facility] Influenza High Dose 2019-02-13 Completed [facility] 00:00:00 [facility] Influenza High Dose 2019-02-13 Completed [facility] 00:00:00 [facility] Influenza High Dose 2019-02-13 Completed [facility] 00:00:00 [facility] Influenza High Dose 2019-02-13 Completed [facility] of 00:00:00 [facility] Influenza High Dose 2019-02-13 Completed [facility] of 00:00:00 [facility] Influenza High Dose 2019-02-13 Completed [facility] 00:00:00 [facility] Influenza High Dose 2019-02-13 Completed [facility] 00:00:00 [facility] Influenza High Dose 2019-02-13 Completed [facility] 00:00:00 [facility] Influenza High Dose 2019-02-13 Completed [facility] 00:00:00 [facility] Influenza High Dose 2019-02-13 Completed [facility] 00:00:00 [facility] Influenza High Dose 2019-02-13 Completed [facility] 00:00:00 [facility] Influenza High Dose 2019-02-13 Completed [facility] 00:00:00 [facility] Influenza High Dose 2019-02-13 Completed [facility] 00:00:00 [facility] TDAP 2017-11-10 Completed [facility] 00:00:00 [facility] TDAP 2017-11-10 Completed [facility] 00:00:00 [facility] TDAP 2017-11-10 Completed [facility] 00:00:00 [facility] TDAP 2017-11-10 Completed [facility] 00:00:00 [facility] TDAP 2017-11-10 Completed [facility] 00:00:00 [facility] TDAP 2017-11-10 Completed [facility] 00:00:00 [facility] TDAP 2017-11-10 Completed [facility] 00:00:00 [facility] TDAP 2017-11-10 Completed [facility] 00:00:00 [facility] TDAP 2017-11-10 Completed [facility] 00:00:00 [facility] TDAP 2017-11-10 Completed [facility] 00:00:00 [place] [...] TDAP 2017-11-10 Completed [facility] 00:00:00 [facility] TDAP 2017-11-10 Completed [facility] 00:00:00 [facility] TDAP 2017-11-10 Completed [facility] 00:00:00 [facility] TDAP 2017-11-10 Completed [facility] 00:00:00 [facility] TDAP 2017-11-10 Completed [facility] 00:00:00 [facility] TDAP 2017-11-10 Completed [facility] 00:00:00 [facility] TDAP 2017-11-10 Completed [facility] 00:00:00 [facility] TDAP 2017-11-10 Completed [facility] 00:00:00 [facility] TDAP 2017-11-10 Completed [facility] 00:00:00 [facility] TDAP 2017-11-10 Completed [facility] 00:00:00 [facility] TDAP 2017-11-10 Completed [facility] 00:00:00 [facility] TDAP 2017-11-10 Completed [facility] 00:00:00 [facility] TDAP 2017-11-10 Completed [facility] 00:00:00 [facility] TDAP 2017-11-10 Completed [facility] 00:00:00 [facility] TDAP 2017-11-10 Completed [facility] 00:00:00 [facility] TDAP 2017-11-10 Completed [facility] 00:00:00 [facility] TDAP 2017-11-10 Completed [facility] 00:00:00 [facility] TDAP 2017-11-10 Completed [facility] 00:00:00 [facility] TDAP 2017-11-10 Completed [facility] 00:00:00 [facility] TDAP 2017-11-10 Completed [facility] 00:00:00 [facility] TDAP 2017-11-10 Completed [facility] 00:00:00 [facility] TDAP 2017-11-10 Completed [facility] 00:00:00 [facility] TDAP 2017-11-10 Completed [facility] 00:00:00 [facility] TDAP 2017-11-10 Completed [facility] 00:00:00 [facility] TDAP 2017-11-10 Completed [facility] 00:00:00 [facility] TDAP 2017-11-10 Completed [facility] 00:00:00 [facility] TDAP 2017-11-10 Completed [facility] 00:00:00 [facility] TDAP 2017-11-10 Completed [facility] 00:00:00 [facility] TDAP 2017-11-10 Completed [facility] 00:00:00 [facility] TDAP 2017-11-10 Completed [facility] 00:00:00 [facility] TDAP 2017-11-10 Completed [facility] 00:00:00 [facility] TDAP 2017-11-10 Completed [facility] 00:00:00 [facility] TDAP 2017-11-10 Completed [facility] 00:00:00 [facility] TDAP 2017-11-10 Completed [facility] 00:00:00 [facility] TDAP 2017-11-10 Completed [facility] 00:00:00 [facility] Pneumococcal 2017-06-09 Completed [facility] o f Polysaccharide, 00:00:00 [place] [facility] PPSV23 (PNEUMOVAX) [facility] Pneumococcal 2017-06-09 Completed [facility] f Polysaccharide, 00:00:00 [place] [facility] PPSV23 (PNEUMOVAX) [place] Pneumococcal 2017-06-09 Completed University o f Polysaccharide, [...] Dose 2016-11-14 Completed [facility] 00:00:00 [facility] Influenza High Dose 2016-11-14 Completed [facility] 00:00:00 [facility] Influenza High Dose 2016-11-14 Completed [facility] 00:00:00 [facility] Influenza High Dose 2016-11-14 Completed [facility] 00:00:00 [facility] Influenza High Dose 2016-11-14 Completed [facility] 00:00:00 [facility] Influenza High Dose 2016-11-14 Completed [facility] 00:00:00 [facility] Influenza High Dose 2016-11-14 Completed [facility] of 00:00:00 [facility] Influenza High Dose 2016-11-14 Completed [facility] of 00:00:00 [facility] Influenza High Dose 2016-11-14 Completed [facility] of 00:00:00 [facility] Influenza High Dose 2016-11-14 Completed [facility] of 00:00:00 [facility] Influenza High Dose 2016-11-14 Completed [facility] 00:00:00 [facility] Influenza High Dose 2016-11-14 Completed [facility] 00:00:00 [facility] Influenza High Dose 2016-11-14 Completed [facility] of 00:00:00 [facility] Influenza High Dose 2016-11-14 Completed [facility] 00:00:00 [facility] Influenza High Dose 2016-11-14 Completed [facility] 00:00:00 [facility] Influenza High Dose 2016-11-14 Completed [facility] 00:00:00 [facility] Influenza High Dose 2016-11-14 Completed [facility] 00:00:00 [facility] Influenza High Dose 2016-11-14 Completed [facility] 00:00:00 [facility] Influenza High Dose 2016-11-14 Completed [facility] 00:00:00 [facility] Influenza High Dose 2016-11-14 Completed [facility] 00:00:00 [facility] Influenza High Dose 2016-11-14 Completed [facility] of 00:00:00 [facility] Influenza High Dose 2016-11-14 Completed [facility] 00:00:00 [facility] Influenza High Dose 2016-11-14 Completed [facility] 00:00:00 [facility] Influenza High Dose 2016-11-14 Completed [facility] 00:00:00 [facility] Influenza High Dose 2016-11-14 Completed [facility] of 00:00:00 [facility] Influenza High Dose 2016-11-14 Completed [facility] 00:00:00 [facility] Influenza High Dose 2016-11-14 Completed [facility] 00:00:00 [facility] Influenza High Dose 2016-11-14 Completed [facility] 00:00:00 [facility] Influenza High Dose 2016-11-14 Completed [facility] 00:00:00 [facility] Influenza High Dose 2016-11-14 Completed [facility] 00:00:00 [facility] Influenza High Dose 2016-11-14 Completed [facility] 00:00:00 [facility] Influenza High Dose 2016-11-14 Completed Unive rsity of 00:00:00 [facility] Influenza High Dose 2016-11-14 Completed Unive rsity of 00:00:00 [facility] Influenza High Dose 2016-11-14 Completed Unive rsity of 00:00:00 [facility] Influenza High Dose 2016-11-14 Completed Unive rsity of 00:00:00 [facility] Influenza High Dose 2016-11-14 Completed Unive rsity of 00:00:00 [facility] Influenza High Dose 2016-11-14 Completed Unive rsity of 00:00:00 [facility] Influenza High Dose 2016-11-14 Completed Unive rsity of 00:00:00 [facility] Influenza High Dose 2016-11-14 Completed Unive rsity of 00:00:00 [facility] Influenza High Dose 2016-11-14 Completed Unive rsity of 00:00:00 [facility] Influenza High Dose 2016-11-14 Completed Unive rsity of 00:00:00 [facility] Influenza High Dose 2016-11-14 Completed Unive rsity of 00:00:00 [facility] Influenza High Dose 2016-11-14 Completed Unive rsity of 00:00:00 [facility] Influenza High Dose 2016-11-14 Completed Unive rsity of 00:00:00 [facility] Influenza High Dose 2016-11-14 Completed Unive rsity of 00:00:00 [facility] Influenza High Dose 2016-11-14 Completed Unive rsity of 00:00:00 [facility] Influenza High Dose 2016-11-14 Completed Unive rsity of 00:00:00 [facility] Influenza High Dose 2016-11-14 Completed Unive rsity of 00:00:00 [facility] Influenza High Dose 2016-11-14 Completed Unive rsity of 00:00:00 [facility] Influenza High Dose 2016-11-14 Completed Unive rsity of 00:00:00 [facility] Influenza High Dose 2016-11-14 Completed Unive rsity of 00:00:00 [facility] Influenza High Dose 2016-11-14 Completed Unive rsity of 00:00:00 [facility] Influenza High Dose 2016-11-14 Completed Unive rsity of 00:00:00 [facility] Influenza High Dose 2016-11-14 Completed Unive rsity of 00:00:00 [facility] Influenza High Dose 2016-11-14 Completed Unive rsity of 00:00:00 [facility] Influenza High Dose 2016-11-14 Completed Unive rsity of 00:00:00 [facility] Influenza High Dose 2016-11-14 Completed Unive rsity of 00:00:00 [facility] Influenza High Dose 2016-11-14 Completed Unive rsity of 00:00:00 [facility] Influenza High Dose 2016-11-14 Completed Unive rsity of 00:00:00 [facility] Influenza High Dose 2016-11-14 Completed Unive rsity of 00:00:00 [facility] Influenza High Dose 2016-11-14 Completed Unive rsity of 00:00:00 [facility] Influenza High Dose 2016-11-14 Completed Unive rsity of 00:00:00 [facility] Influenza High Dose 2016-11-14 Completed Unive rsity of 00:00:00 [facility] Influenza High Dose 2016-11-14 Completed Unive rsity of 00:00:00 [facility] Influenza High Dose 2016-11-14 Completed Unive rsity of 00:00:00 [facility] Influenza High Dose 2016-11-14 Completed Unive rsity of 00:00:00 [facility] Influenza High Dose 2016-11-14 Completed Unive rsity of 00:00:00 [facility] Influenza High Dose 2016-11-14 Completed Unive rsity of 00:00:00 [facility] Influenza High Dose 2016-11-14 Completed Unive rsity of 00:00:00 [facility] Influenza High Dose 2016-11-14 Completed Unive rsity of 00:00:00 [facility] Influenza High Dose 2016-11-14 Completed Unive rsity of 00:00:00 [facility] Influenza High Dose 2016-11-14 Completed Unive rsity of 00:00:00 [facility] Influenza High Dose 2016-11-14 Completed Unive rsity of 00:00:00 [facility] Influenza High Dose 2016-11-14 Completed Unive rsity of 00:00:00 [facility] Influenza High Dose 2016-11-14 Completed Unive rsity of 00:00:00 [facility] Influenza High Dose 2016-11-14 Completed Unive rsity of 00:00:00 [facility] Influenza High Dose 2016-11-14 Completed Unive rsity of 00:00:00 [facility] Influenza High Dose 2016-11-14 Completed Unive rsity of 00:00:00 [facility] Influenza High Dose 2016-11-14 Completed Unive rsity of 00:00:00 [facility] Influenza High Dose 2016-11-14 Completed Unive rsity of 00:00:00 [facility] Influenza High Dose 2016-11-14 Completed Unive rsity of 00:00:00 [facility] Influenza High Dose 2016-11-14 Completed Unive rsity of 00:00:00 [facility] Influenza High Dose 2016-11-14 Completed Unive rsity of 00:00:00 [facility] Influenza High Dose 2016-11-14 Completed Unive rsity of 00:00:00 [facility] Influenza High Dose 2016-11-14 Completed Unive rsity of 00:00:00 [facility] Influenza High Dose 2016-11-14 Completed Unive rsity of 00:00:00 [facility] Influenza High Dose 2016-11-14 Completed Unive rsity of 00:00:00 [facility] Influenza High Dose 2016-11-14 Completed Unive rsity of 00:00:00 [facility] Influenza High Dose 2016-11-14 Completed Unive rsity of 00:00:00 [facility] Influenza High Dose 2016-11-14 Completed Unive rsity of 00:00:00 [facility] Influenza High Dose 2016-11-14 Completed Unive rsity of 00:00:00 [facility] Influenza High Dose 2016-11-14 Completed Unive rsity of 00:00:00 [facility] Influenza High Dose 2016-11-14 Completed Unive rsity of 00:00:00 [facility] Influenza High Dose 2016-11-14 Completed [facility]ive rsity of 00:00:00 [facility] Influenza High Dose 2016-11-14 Completed Unive rsity of 00:00:00 [facility] Influenza High Dose 2016-11-14 Completed Unive rsity of 00:00:00 [facility] Influenza High Dose 2016-11-14 Completed Unive rsity of 00:00:00 [facility] Influenza High Dose 2016-11-14 Completed Unive rsity of 00:00:00 [facility] Influenza High Dose 2016-11-14 Completed [facility]ive rsity of 00:00:00 [facility] Influenza High Dose 2016-11-14 Completed Unive rsity of 00:00:00 [facility] Influenza High Dose 2016-11-14 Completed Unive rsity of 00:00:00 [facility] Influenza High Dose 2016-11-14 Completed Unive rsity of 00:00:00 [facility] Influenza High Dose 2016-11-14 Completed Unive rsity of 00:00:00 [facility] Influenza High Dose 2016-11-14 Completed Unive rsity of 00:00:00 [facility] Influenza High Dose 2016-11-14 Completed Unive rsity of 00:00:00 [facility] Influenza High Dose 2016-11-14 Completed Unive rsity of 00:00:00 [facility] Influenza High Dose 2016-11-14 Completed Unive rsity of 00:00:00 [facility] Influenza High Dose 2016-11-14 Completed Unive rsity of 00:00:00 [facility] Influenza High Dose 2016-11-14 Completed Unive rsity of 00:00:00 [facility] Influenza High Dose 2016-11-14 Completed Unive [facility]ity of 00:00:00 [facility] Influenza High Dose 2016-11-14 Completed Unive rsity of 00:00:00 [facility] Influenza High Dose 2016-11-14 Completed Unive rsity of 00:00:00 [facility] Influenza High Dose 2016-11-14 Completed Unive rsity of 00:00:00 [facility] Influenza High Dose 2016-11-14 Completed Unive rsity of 00:00:00 [facility] Influenza High Dose 2016-11-14 Completed Unive rsity of 00:00:00 [facility] Influenza High Dose 2016-11-14 Completed Unive rsity of 00:00:00 [facility] Influenza High Dose 2016-11-14 Completed Unive rsity of 00:00:00 [facility] Influenza High Dose Unknown Completed Unive rsity of [facility] Pneumococcal Unknown Completed University o f Polysaccharide, [place] [facility] PPSV23 (PNEUMOVAX) Branch TDAP Unknown Completed [facility] Influenza High Dose Unknown Completed Unive rsity of [facility] Influenza High Dose Unknown Completed Unive rsity of [facility] SARS-COV-2 COVID-19 Unknown Completed Unive rsity of MODERNA 0.25ML [place] [facility] BOOSTER VACCINE Branch Influenza Virus Unknown Completed Universit y of Vaccine,quad [place] [facility],preserve Free Branch 65+ (FLUAD) Influenza High Dose Unknown Completed Unive rsity of [facility] Pneumococcal 20 Unknown Completed Universit y of Conjugate, PCV20 [place] [facility] (Prevnar 20) Branch Influenza High Dose Unknown Completed Unive rsity of [facility] Pneumococcal Unknown Completed University o f Polysaccharide, [place] [facility] PPSV23 (PNEUMOVAX) Branch TDAP Unknown Completed [facility] Influenza High Dose Unknown Completed Unive rsity of [facility] Influenza High Dose Unknown Completed Unive rsity of [facility] SARS-COV-2 COVID-19 Unknown Completed Unive rsity of MODERNA 0.25ML [place] [facility] BOOSTER VACCINE [facility] Influenza Virus Unknown Completed [facility]it y of Vaccine,quad [place] [facility],preserve Free [facility] 65+ (FLUAD) Influenza High Dose Unknown Completed Unive rsity of [facility] Pneumococcal 20 Unknown Completed Universit y of Conjugate, PCV20 [place] [facility] (Prevnar 20) Branch Influenza Virus Unknown Completed [facility]it [facility] of Vaccine,quad [place] [facility],preserve Free [facility] 65+ (FLUAD) Influenza High Dose Unknown Completed Unive rsity of [facility] Pneumococcal Unknown Completed University o f Polysaccharide, [place] [facility] PPSV23 (PNEUMOVAX) Branch TDAP Unknown Completed [facility] Influenza High Dose Unknown Completed Unive rsity of [facility] Influenza High Dose Unknown Completed Unive rsity of [facility] SARS-COV-2 COVID-19 Unknown Completed Unive rsity of MODERNA 0.25ML [place] [facility] BOOSTER VACCINE Branch Influenza Virus Unknown Completed [facility]it y of Vaccine,quad [place] [facility],preserve Free [facility] 65+ (FLUAD) Influenza High Dose Unknown Completed Unive rsity of [facility] Pneumococcal 20 Unknown Completed Universit y of Conjugate, PCV20 [place] [facility] (Prevnar 20) Branch Influenza Virus Unknown Completed [facility]it y of Vaccine,quad [place] [facility],preserve Free Branch 65+ (FLUAD) Influenza High Dose Unknown Completed Unive rsity of [facility] Pneumococcal Unknown Completed University o f Polysaccharide, [place] [facility] PPSV23 (PNEUMOVAX) Branch TDAP Unknown Completed [facility] Influenza High Dose Unknown Completed Unive rsity of [facility] Influenza High Dose Unknown Completed Unive rsity of [facility] SARS-COV-2 COVID-19 Unknown Completed Unive rsity of MODERNA 0.25ML [place] [facility] BOOSTER VACCINE Branch Influenza Virus Unknown Completed [facility]it y of Vaccine,quad [place] [facility],preserve Free [facility] 65+ (FLUAD) Influenza High Dose Unknown Completed Unive rsity of [facility] Pneumococcal 20 Unknown Completed Universit y of Conjugate, PCV20 [place] [facility] (Prevnar 20) Branch Influenza Virus Unknown Completed [facility]it y of Vaccine,quad [place] [facility],preserve Free [facility] 65+ (FLUAD) Influenza High Dose Unknown Completed Unive rsity [facility] Pneumococcal Unknown Completed University o f Polysaccharide, [place] [facility] PPSV23 (PNEUMOVAX) Branch TDAP Unknown Completed [facility] Influenza High Dose Unknown Completed Unive rsity of [facility] Influenza High Dose Unknown Completed Unive rsity of [facility] SARS-COV-2 COVID-19 Unknown Completed Unive rsity of MODERNA 0.25ML [place] [facility] BOOSTER VACCINE [facility] Influenza Virus Unknown Completed [facility]it [facility] of Vaccine,quad [place] [facility],preserve Free [facility] 65+ (FLUAD) Influenza High Dose Unknown Completed Unive rsity of [facility] Pneumococcal 20 Unknown Completed Universit y of Conjugate, PCV20 [place] [facility] (Prevnar 20) Branch Influenza Virus Unknown Completed [facility]it y of Vaccine,quad [place] [facility],preserve Free Branch 65+ (FLUAD) Influenza High Dose Unknown Completed Unive rsity of [facility] Pneumococcal Unknown Completed University o f Polysaccharide, [place] [facility] PPSV23 (PNEUMOVAX) Branch TDAP Unknown Completed [facility] Influenza High Dose Unknown Completed Unive rsity of [facility] Influenza High Dose Unknown Completed Unive rsity of [facility] SARS-COV-2 COVID-19 Unknown Completed Unive rsity of MODERNA 0.25ML [place] [facility] BOOSTER VACCINE [facility] Influenza Virus Unknown Completed Universit y of Vaccine,[facility] Medica l Im,preserve Free Branch 65+ (FLUAD) Influenza High Dose Unknown Completed Unive rsity of [facility] Pneumococcal 20 Unknown Completed Universit y of Conjugate, PCV20 [facility] dical (Prevnar 20) Branch Influenza High Dose Unknown Completed Unive rsity of [facility] Pneumococcal Unknown Completed University o f Polysaccharide, [place] [facility] PPSV23 (PNEUMOVAX) Branch TDAP Unknown Completed [facility] Influenza High Dose Unknown Completed Unive rsity of [facility] Influenza High Dose Unknown Completed Unive rsity of [facility] SARS-COV-2 COVID-19 Unknown Completed Unive rsity of MODERNA 0.25ML [place] [facility] BOOSTER VACCINE [facility] Influenza High Dose Unknown Completed Unive rsity [facility] Influenza High Dose Unknown Completed Unive rsity of [facility] Pneumococcal Unknown Completed University o f Polysaccharide, [place] [facility] PPSV23 (PNEUMOVAX) Branch TDAP Unknown Completed [facility] Influenza High Dose Unknown Completed Unive rsity [facility] Influenza High Dose Unknown Completed Unive rsity of [facility] SARS-COV-2 COVID-19 Unknown Completed Unive rsity of MODERNA 0.25ML [place] [facility] BOOSTER VACCINE [facility] Influenza High Dose Unknown Completed Unive rsity [facility] Influenza High Dose Unknown Completed Unive rsity [facility] Pneumococcal Unknown Completed University o f Polysaccharide, [place] [facility] PPSV23 (PNEUMOVAX) Branch TDAP Unknown Completed [facility] Influenza High Dose Unknown Completed Unive rsity [facility] Influenza High Dose Unknown Completed Unive rsity of [facility] Influenza High Dose Unknown [facility] Signs Vital Name Observation Time Observation Value Comments Source HEIGHT 2019-07-08 00:00:00 147.3 cm WEIGHT 2019-07-08 00:00:00 57.743 kg Systolic blood 2022-11-11 19:32:00 119 mm[Hg] Univer sity of pressure [facility] Diastolic blood 2022-11-11 19:32:00 67 mm[Hg] Unive rsity of [facility] Heart rate 2022-11-11 19:32:00 89 /min [facility] [place] [facility] Body temperature 2022-11-11 19:32:00 36.61 Monique Univ ersity [facility] [place] [facility] Body height 2022-11-11 19:32:00 160 cm [facility] [place] [facility] Body weight 2022-11-11 19:32:00 64.048 kg [facility] [place] [facility] BMI 2022-11-11 19:32:00 25.01 kg/m2 [facility] [place] [facility] Oxygen saturation in 2022-11-11 19:32:00 97 /min University of Arterial blood by [facility] angelica Pulse oximetry Branch Systolic blood 2022-10-26 15:21:00 132 mm[Hg] Univer sity of pressure [facility] Diastolic blood 2022-10-26 15:21:00 50 mm[Hg] Unive rsity of pressure [facility] Heart rate 2022-10-26 15:21:00 70 /min [facility] [place] [facility] Respiratory rate 2022-10-26 15:21:00 18 /min [facility] Body height 2022-10-26 15:21:00 160 cm [facility] [place] [facility] Body weight 2022-10-26 15:21:00 63.504 kg [facility] [place] [facility] BMI 2022-10-26 15:21:00 24.80 kg/m2 [facility] [place] [facility] Oxygen saturation in 2022-10-26 15:21:00 96 /min University of Arterial blood by [facility] Pulse oximetry Branch Systolic blood 2022-09-22 20:30:00 124 mm[Hg] Univer sity of pressure [facility] Diastolic blood 2022-09-22 20:30:00 68 mm[Hg] Unive rsity of pressure [facility] Heart rate 2022-09-22 20:30:00 89 /min [facility] [place] [facility] Respiratory rate 2022-09-22 20:30:00 18 /min [facility] [place] [facility] Body height 2022-09-22 20:30:00 160 cm [facility] [place] [facility] Body weight 2022-09-22 20:30:00 63.957 kg [facility] [place] [facility] BMI 2022-09-22 20:30:00 24.98 kg/m2 [facility] [place] [facility] Oxygen saturation in 2022-09-22 20:30:00 96 /min [facility] Arterial blood by [place] [facility] Pulse oximetry [facility] Systolic blood 2022-09-08 15:26:00 134 mm[Hg] Univer sity of pressure [place] [facility] Diastolic blood 2022-09-08 15:26:00 65 mm[Hg] Unive rsity of pressure [facility] Heart rate 2022-09-08 15:10:00 86 /min [facility] [place] [facility] Body temperature 2022-09-08 15:10:00 36.61 Monique [facility] [place] [facility] Body height 2022-09-08 15:10:00 160 cm [facility] [place] [facility] Body weight 2022-09-08 15:10:00 64.139 kg [facility] [place] [facility] BMI 2022-09-08 15:10:00 25.05 kg/m2 [facility] [place] [facility] Oxygen saturation in 2022-09-08 15:10:00 97 /min University of Arterial blood by [facility] angelica Pulse oximetry Branch Systolic blood 2022-08-09 18:25:00 125 mm[Hg] Univer sity of pressure [place] [facility] Diastolic blood 2022-08-09 18:25:00 76 mm[Hg] Unive rsity of pressure [facility] Heart rate 2022-08-09 18:25:00 62 /min [facility] [place] [facility] Respiratory rate 2022-08-09 18:25:00 19 /min [facility] [place] [facility] Body height 2022-08-09 18:25:00 160 cm [facility] [place] [facility] Body weight 2022-08-09 18:25:00 62.687 kg [facility] [place] [facility] BMI 2022-08-09 18:25:00 24.48 kg/m2 [facility] [place] [facility] Oxygen saturation in 2022-08-09 18:25:00 96 /min [facility] Arterial blood by [place] [facility] Pulse oximetry [facility] Systolic blood 2022-08-09 15:15:00 138 mm[Hg] Univer sity of pressure [place] [facility] Diastolic blood 2022-08-09 15:15:00 71 mm[Hg] Unive rsity of pressure [place] [facility] Heart rate 2022-08-09 15:15:00 93 /min [facility] [place] [facility] Body height 2022-08-09 15:15:00 160 cm [facility] [place] [facility] Body weight 2022-08-09 15:15:00 62.642 kg [facility] [place] [facility] BMI 2022-08-09 15:15:00 24.46 kg/m2 [facility] [place] [facility] Oxygen saturation in 2022-08-09 15:15:00 96 /min University of Arterial blood by [facility] Pulse oximetry Branch Systolic blood 2022-07-12 20:34:00 117 mm[Hg] Univer sity of pressure [place] [facility] Diastolic blood 2022-07-12 20:34:00 54 mm[Hg] Unive rsity of pressure [place] [facility] Heart rate 2022-07-12 20:34:00 87 /min [facility] [place] [facility] Body temperature 2022-07-12 20:34:00 36.56 Monique [facility] [place] [facility] Respiratory rate 2022-07-12 20:34:00 17 /min [facility] [place] [facility] Body weight 2022-07-12 20:34:00 63.957 kg [facility] [place] [facility] BMI 2022-07-12 20:34:00 24.51 kg/m2 [facility] [place] [facility] Oxygen saturation in 2022-07-12 20:34:00 96 /min University of Arterial blood by [facility] Pulse oximetry Branch Systolic blood 2022-06-28 15:18:00 [...] 98 /min University of Arterial blood by [facility] Pulse oximetry Branch Systolic blood 2022-06-09 18:20:00 126 mm[Hg] Univer sity of pressure [place] [facility] Diastolic blood 2022-06-09 18:20:00 56 mm[Hg] Unive rsity of pressure [place] [facility] Heart rate 2022-06-09 18:20:00 83 /min [facility] [place] [facility] Oxygen saturation in 2022-06-09 18:20:00 93 /min University of Arterial blood by [facility] Pulse oximetry Branch Respiratory rate 2022-06-09 18:18:00 [...] /min University of Arterial blood by [facility] Pulse oximetry Branch WEIGHT 2022-06-01 05:00:00 64.638 [...] 19:34:00 54 mm[Hg] Unive rsity of pressure [facility] Heart rate 2022-05-25 19:34:00 77 /min [facility] [place] [facility] Body height 2022-05-25 19:34:00 157.5 cm [facility] [place] [facility] Body weight 2022-05-25 19:34:00 62.551 kg [facility] [place] [facility] BMI 2022-05-25 19:34:00 25.22 kg/m2 [facility] [place] [facility] Oxygen saturation in 2022-05-25 19:34:00 95 /min University of Arterial blood by [place] [employer] [facility] Pulse oximetry Branch Systolic blood 2022-05-17 19:02:00 166 mm[Hg] Univer sity of pressure [place] [facility] Diastolic blood 2022-05-17 19:02:00 75 mm[Hg] Unive rsity of pressure [facility] Heart rate 2022-05-17 19:02:00 104 /min [...] 2022-05-17 19:02:00 30.99 kg/m2 [facility] [place] [facility] Oxygen saturation in 2022-05-17 19:02:00 98 /min University of Arterial blood by [employer] angelica Pulse oximetry Branch Systolic blood 2022-04-08 19:24:00 134 mm[Hg] Univer sity of pressure [facility] Diastolic blood 2022-04-08 19:24:00 73 mm[Hg] Unive rsity of pressure [facility] Heart rate 2022-04-08 19:24:00 73 /min [facility] Body height 2022-04-08 19:24:00 157.5 cm [facility] Body weight 2022-04-08 19:24:00 64.864 kg [facility] BMI 2022-04-08 19:24:00 26.16 kg/m2 Universi ty of [facility] Systolic blood 2022-04-11 15:24:00 136 mm[Hg] Univer sity of pressure [facility] Diastolic blood 2022-04-11 15:24:00 76 mm[Hg] Unive rsity of pressure [facility] Heart rate 2022-04-11 15:24:00 83 /min [facility] Body height 2022-04-11 15:24:00 157.5 cm [facility] Body weight 2022-04-11 15:24:00 63.504 kg [facility] BMI 2022-04-11 15:24:00 25.61 kg/m2 [facility] Oxygen saturation in 2022-04-11 15:24:00 97 /min University of Arterial blood by [facility] Pulse oximetry Branch Systolic blood 2022-03-11 20:35:00 136 mm[Hg] Univer sity of pressure [facility] Diastolic blood 2022-03-11 20:35:00 76 mm[Hg] Unive rsity of pressure [facility] Heart rate 2022-03-11 20:33:00 83 /min [facility] Body temperature 2022-03-11 20:33:00 37.11 Monique Univ ersity of [facility] Body height 2022-03-11 20:33:00 157.5 cm [facility] Body weight 2022-03-11 20:33:00 63.504 kg [facility] BMI 2022-03-11 20:33:00 25.61 kg/m2 Universi ty of [facility] Oxygen saturation in 2022-03-11 20:33:00 97 /min University of Arterial blood by [facility] Pulse oximetry Branch Systolic blood 2022-03-11 14:27:00 [...] /min University of Arterial blood by [facility] Pulse oximetry Branch Systolic blood 2022-02-25 23:37:00 [...] /min University of Arterial blood by [facility] Pulse oximetry Branch Systolic blood 2022-01-21 21:34:00 [...] /min University of Arterial blood by [facility] Pulse oximetry Branch Systolic blood 2021-12-24 20:33:00 [...] 2021-12-24 20:33:00 62.596 kg [facility] BMI 2021-12-24 20:33:00 29.86 kg/m2 [facility] Oxygen saturation in 2021-12-24 20:33:00 96 /min University of Arterial blood by [facility] Pulse oximetry Branch Systolic blood 2021-12-03 18:46:00 [...] 96 /min University of Arterial blood by [facility] angelica Pulse oximetry Branch Systolic blood 2021-11-26 20:46:00 158 mm[Hg] Univer sity of pressure [facility] Diastolic blood 2021-11-26 20:46:00 72 mm[Hg] Unive rsity of pressure [facility] Heart rate 2021-11-26 20:46:00 98 /min [facility] Body height 2021-11-26 20:46:00 160 cm [facility] Body weight 2021-11-26 20:46:00 61.689 kg [facility] BMI 2021-11-26 20:46:00 24.09 kg/m2 [facility] Systolic blood 2021-11-02 18:10:00 152 mm[Hg] Univer sity of pressure [facility] Diastolic blood 2021-11-02 18:10:00 73 mm[Hg] Unive rsity of pressure [facility] Heart rate 2021-11-02 18:10:00 83 /min [facility] Body height 2021-11-02 18:10:00 160 cm [facility] Body weight 2021-11-02 18:10:00 61.689 kg [facility] BMI 2021-11-02 18:10:00 24.09 kg/m2 [facility] Oxygen saturation in 2021-11-02 18:10:00 95 /min University of Arterial blood by [facility] Pulse oximetry Branch Systolic blood 2021-10-25 20:11:00 138 mm[Hg] Univer sity of pressure [facility] Diastolic blood 2021-10-25 20:11:00 64 mm[Hg] Unive rsity of pressure [facility] Heart rate 2021-10-25 20:11:00 64 /min [facility] Body temperature 2021-10-25 20:11:00 36.5 Monique Univ ers[facility] Body height 2021-10-25 20:11:00 160 cm [facility] Body weight 2021-10-25 20:11:00 61.689 kg Universi ty of [facility] BMI 2021-10-25 20:11:00 24.09 kg/m2 Universi ty [facility] Oxygen saturation in 2021-10-25 20:11:00 96 /min University of Arterial blood by [facility] Pulse oximetry Branch Systolic blood 2021-07-09 21:36:00 132 mm[Hg] Univer sity of pressure [facility] Diastolic blood 2021-07-09 21:36:00 65 mm[Hg] Unive rsity of [facility] Body temperature 2021-07-09 21:36:00 36.33 Monique Univ ersity of [facility] Heart rate 2021-07-09 21:10:00 73 /min Universi ty [facility] Body height 2021-07-09 21:10:00 142.2 cm Universi ty [facility] Body weight 2021-07-09 21:10:00 61.598 kg Universi ty [facility] BMI 2021-07-09 21:10:00 30.45 kg/m2 Universi ty [facility] Oxygen saturation in 2021-07-09 21:10:00 96 /min University of Arterial blood by [facility] Pulse oximetry Branch HEIGHT 2019-07-08 00:00:00 147.3 cm WEIGHT 2019-07-08 00:00:00 57.743 kg Oxygen saturation in 2022-06-01 14:45:00 93 /min [facility] Arterial blood by Medical Ce nter Pulse oximetry Heart rate 2022-06-01 12:37:00 80 /min [facility] Body temperature 2022-06-01 10:47:08 36.56 Monique [facility] Systolic blood 2022-06-01 10:46:30 135 mm[Hg] [facility] Diastolic blood 2022-06-01 10:46:30 63 mm[Hg] [facility] Respiratory rate 2022-06-01 09:00:00 17 /min [facility] Body weight 2022-06-01 05:00:00 64.638 kg [facility] BMI 2022-06-01 05:00:00 26.06 kg/m2 [facility] Body height 2022-05-28 08:00:00 157.5 cm [facility] pulse rate 2019-07-01 08:14:01 80 /min [facility] blood pressure, 2019-07-01 08:14:01 71 mm[Hg] Legac y [facility] diastolic Health blood pressure, 2019-07-01 08:14:01 171 mm[Hg] Legac y [facility] systolic Health pulse rate 2019-06-25 09:35:00 76 /min [facility] blood pressure, 2019-06-25 09:35:00 77 mm[Hg] Legac y [facility] diastolic Health blood pressure, 2019-06-25 09:35:00 153 mm[Hg] Legac y [facility] systolic Health Procedures Procedure Date / Time Performing Clinician Source Performed FLU 2022-11-11 20:48:37 [facility] VACC(),65+YR,0.5 Medica l Branch ML,IM,ADJUVANTED,QUAD(FLU AD) CBC WITH DIFF 2022-09-08 16:33:00 [facility] Branch COMP. METABOLIC PANEL 2022-09-08 16:33:00 [facility] ([id number]) Medical Branch N-TERMINAL PRO-BNP 2022-09-08 16:33:00 [facility]i [facility] [place] HOME HEALTH - OTHER 2022-08-08 05:01:00 Doctor López [facility] Name Medical Branch EXTERNAL PROVIDER RECORDS 2022-07-21 05:01:00 Doctor López [facility] [place] [facility] HOME HEALTH - OTHER 2022-07-11 05:01:00 Alejo Webb [facility] [place] [facility] HOME HEALTH - OTHER 2022-07-01 05:01:00 Alejo Webb [facility] [place] [facility] HOME HEALTH - OTHER 2022-06-28 05:01:00 Doctor López [facility] [place] [facility] HOME HEALTH - OTHER 2022-06-24 05:01:00 Doctor López [facility] Name Medical Branch NM MYOCARDIUM PERFUSION 2022-06-23 16:20:00 Lo, Sendil [facility] STRESS AND REST Medical Branch NUCLEAR STRESS TEST 2022-06-23 16:20:00 Lo, Sendil [facility] CARDIOLOGY (DO NOT SCHED) Medica l Branch NM MYOCARDIUM PERFUSION 2022-06-23 16:20:00 Lo, Sendil [facility] STRESS AND REST Medical Branch NUCLEAR STRESS TEST 2022-06-23 16:20:00 Lo, Sendil [facility] CARDIOLOGY (DO NOT SCHED) Medica l Branch NM MYOCARDIUM PERFUSION 2022-06-23 16:20:00 Lo, Sendil [facility] STRESS AND REST Medical Branch NUCLEAR STRESS TEST 2022-06-23 16:20:00 Lo, Sendil [facility] CARDIOLOGY (DO NOT SCHED) Medica l Branch NM MYOCARDIUM PERFUSION 2022-06-23 16:20:00 Lo, Sendil [facility] STRESS AND REST Medical Branch NUCLEAR STRESS TEST 2022-06-23 16:20:00 Lo, Sendil [facility] CARDIOLOGY (DO NOT SCHED) Medica l Branch HOME HEALTH - OTHER 2022-06-21 05:01:00 Doctor UnaAlejo londono [facility] [place] [facility] [place] BASIC METABOLIC PANEL 2022-06-11 13:49:00 Lo, [facility]il [facility] [place] (NA, K, CL, CO2, GLUCOSE, Medica l Branch BUN, CREATININE, CA) N-TERMINAL PRO-BNP 2022-06-11 13:49:00 Lo, Sendil [facility] COMP. METABOLIC PANEL 2022-06-10 14:37:00 Lo, [id number] N-TERMINAL PRO-BNP 2022-06-10 14:37:00 Lo, Sendil [facility] HOME HEALTH - OTHER 2022-06-07 05:01:00 Doctor Unassregine, Alejo [facility] [place] [facility] POCT-GLUCOSE METER 2022-06-01 10:49:00 Yuan Goodwinjal M [facility] POCT-GLUCOSE METER 2022-06-01 08:17:00 Valerie Goodwin [facility] BASIC METABOLIC PANEL 2022-06-01 04:34:00 Prashanth [facility] CBC W/PLT COUNT & AUTO 2022-06-01 04:34:00 Prashanth [facility] MAGNESIUM 2022-06-01 04:34:00 Prashanth [facility] CBC W/PLT COUNT & AUTO 2022-06-01 04:34:00 Prashanth, [facility] POCT-GLUCOSE METER 2022-05-31 22:07:00 Radha [facility] POCT-GLUCOSE METER 2022-05-31 18:23:00 Radha [facility] POCT-GLUCOSE METER 2022-05-31 12:07:00 Radha [facility] POCT-GLUCOSE METER 2022-05-31 08:50:00 Radha [facility] BASIC METABOLIC PANEL 2022-05-31 05:26:00 Prashanth, [facility] CBC W/PLT COUNT & AUTO 2022-05-31 05:26:00 Prashanth [facility] MAGNESIUM 2022-05-31 05:26:00 Prashanth [facility] PHOSPHORUS 2022-05-31 05:26:00 Prashanth [facility] CBC W/PLT COUNT & AUTO 2022-05-31 05:26:00 Prashanth [facility] POCT-GLUCOSE METER 2022-05-30 20:14:00 Radha [facility] POCT-GLUCOSE METER 2022-05-30 17:59:00 Radha [facility] POCT-GLUCOSE METER 2022-05-30 13:04:00 Radha [facility] POCT-GLUCOSE METER 2022-05-30 08:38:00 Catherine [facility] BASIC METABOLIC PANEL 2022-05-30 04:57:00 Prashanth [facility] CBC W/PLT COUNT & AUTO 2022-05-30 04:57:00 Prashanth [facility] MAGNESIUM 2022-05-30 04:57:00 Prashanth [facility] PHOSPHORUS 2022-05-30 04:57:00 Prashanth [facility] CBC W/PLT COUNT & AUTO 2022-05-30 04:57:00 [facility] POCT-GLUCOSE METER 2022-05-30 00:09:00 Radha [facility] POCT-GLUCOSE METER 2022-05-29 16:43:00 [facility] POCT-GLUCOSE METER 2022-05-29 14:48[facility] 2022-05-29 03:47[facility] W/[facility]T [facility] & AUTO 2022-05-29 03:47:00 [facility]UM 2022-05-29 03:47:00 Prashanth [facility] PHOSPHORUS 2022-05-29 03:47:00 Prashanth [facility] CBC W/PLT COUNT & AUTO 2022-05-29 03:47:00 Prashanth [facility] POCT-GLUCOSE METER 2022-05-28 23:12:00 Jose Enrique [facility] HIGH SENSITIVITY TROPONIN 2022-05-28 18:25:00 Prashanth [facility] POCT-GLUCOSE METER 2022-05-28 17:04:00 Sharyn Quispe [facility] 2D ECHO W/ DOPPLER 2022-05-28 14:38:34 [facility] POCT-GLUCOSE METER 2022-05-28 12:00:00 [facility] HIGH SENSITIVITY TROPONIN 2022-05-28 11:02:00 [facility] TSH/FREE T4 IF INDICATED 2022-05-28 11:02:00 [facility] Kayla Roman C [facility] CBC W/PLT COUNT & AUTO 2022-05-28 11:02:00 [facility] DIFFERENTIAL [place] CBC W/PLT COUNT & AUTO 2022-05-28 11:02:00 [facility] RESPIRATORY PANEL 2022-05-28 09:47:00 [facility] PROCALCITONIN 2022-05-28 09:43:00 [facility] HIGH SENSITIVITY TROPONIN 2022-05-28 09:43:00 [facility]TYPE NATRIURETIC FACTOR 2022-05-28 09:43:00 [facility] [place] HEMOGLOBIN A1C 2022-05-28 09:43:00 [facility] ECG 12-LEAD 2022-05-28 08:36:59 Prashanth [facility] ECG 12-LEAD 2022-05-28 08:36:59 Unknown, Hl7 [facility] ECG 12-LEAD 2022-05-28 08:36:59 Unknown, Hl7 [facility] XR CHEST 1 VIEW PORTABLE 2022-05-28 08:33:00 [facility] BLOOD GAS, ARTERIAL 2022-05-28 08:28:[address] [facility] COMPREHENSIVE METABOLIC 2022-05-28 08:27:00 Prashanth [facility] PANEL Center MAGNESIUM 2022-05-28 08:27:00 Prashanth [facility] PHOSPHORUS 2022-05-28 08:27:00 Prashanth [facility] LACTIC ACID, VENOUS 2022-05-28 08:27:[address] [facility] PROTHROMBIN TIME/INR 2022-05-28 08:27:00 Prashanth [facility] FIBRINOGEN 2022-05-28 08:27:00 Prashanth [facility] EKG-SCANNED 2022-05-28 00:00:00 Provider, [facility] HB ECG ROUTINE & RHYTHM 2022-05-25 19:30:49 Ceci Lo [facility] PNEUMOCOCCAL 20 CONJUGATE 2022-05-17 19:39:37 Angela Cunningham [facility] (PREVNAR 20) VACCINE Medical Bra [facility] ASSIGNMENT OF BENEFITS 2022-05-17 18:46:13 Doctor Unassigned, [facility] [place] [facility] EXTERNAL PROVIDER RECORDS 2022-04-12 06:01:00 Doctor Unabarbieigned, [facility] [place] [facility] REFERRAL- 2022-04-03 06:01:00 Doctor Unassregine, [facility] REQUEST/RESPONSE [facility] CBC WITH DIFF 2022-03-11 21:42:00 [facility] URINE CULTURE 2022-03-11 21:42:00 Chary [facility] REFERRAL- 2022-02-23 06:01:00 Doctor Unassregine, [facility] REQUEST/RESPONSE [place] [facility] [place] EMERGENCY SERVICES 2021-12-31 06:01:00 Doctor Rene, [facility] AGREEMENTS AND [place] [facility] AUTHORIZATIONS FLU 2021-12-24 21:05:18 Chary Donald [facility] VACC([id number]),65+YR,0.5 Medica l Branch ML,IM,ADJUVANTED,QUAD(FLU AD) MR BRAIN WO CONTRAST 2021-11-19 15:41:00 Won Matt [facility] [place] EXTERNAL PROVIDER RECORDS 2021-11-18 05:01:00 Doctor Rene, [facility] [place] [facility] EXTERNAL PROVIDER RECORDS 2021-11-01 05:01:00 Doctor Rene, [facility] [place] [facility] AUTHORIZATION TO RELEASE 2021-10-25 05:01:00 Doctor Dianassigned, [facility] PHI TO [facility] [place] [facility] URINALYSIS 2021-09-03 13:22:00 Chary [facility] LIPASE 2021-09-03 13:08:00 Chary [facility] COMP. METABOLIC PANEL 2021-09-03 13:08:00 Chary Donald [facility] ([id number]) [facility] CBC WITH DIFF 2021-09-03 13:08:00 Chary [facility] Plan of Care Planned Activity Planned Date [...] Center INFLUENZA VACCINE (Season Ended)] Future Scheduled 2022-10-14 Influenza Vaccine (#1) [facility] 00:00:00 [code = Influenza Medical Ce nter Vaccine (#1)] Future Scheduled 2022-10-14 Influenza Vaccine (#1) [facility] 00:00:00 [code = Influenza Medical Ce nter Vaccine (#1)] Future Scheduled 2022-10-14 Influenza Vaccine (#1) [facility] 00:00:00 [code = Influenza Medical Ce nter Vaccine (#1)] Future Scheduled 2022-03-15 PNEUMOCOCCAL 65+ YRS [facility] 00:00:00 (2 - PCV) [code = Medical Ce nter PNEUMOCOCCAL 65+ YRS (2 - PCV)] Future Scheduled 2022-03-15 PNEUMOCOCCAL 65+ Y[facility] 00:00:00 (2 - PCV) [code = Medical Ce nter PNEUMOCOCCAL 65+ YRS (2 - PCV)] Future Scheduled 2022-03-15 PNEUMOCOCCAL 65+ YRS [facility] 00:00:00 (2 - PCV) [code = Medical Ce nter PNEUMOCOCCAL 65+ YRS (2 - PCV)] Future Scheduled 2022-02-[address] [...] Medical C enter SCREENING] Future Scheduled 2022-02-13 FALLS RISK SCREENING [facility] 00:00:00 [code = FALLS RISK Medical C enter SCREENING] Future Scheduled 2022-02-[address] [facility] 00:00:00 (12+) [code = Medical Center DEPRESSION SCREENING (12+)] Future Scheduled 2021-10-14 INFLUENZA VACCINE (#1) C [...] Medical Ce nter VACCINE (#1)] Future Scheduled 2021-03-12 COVID-19 VACCINE (2 - [facility] 00:[facility]00 [facility]oster for [facility] series) [code = COVID-19 VACCINE (2 - Booster for [employer] series)] Future Scheduled 2021-03-12 COVID-19 VACCINE (2 - [facility] 00:00:00 [facility] series) [code = COVID-19 VACCINE (2 - Booster for Modern[employer] series)] Future Scheduled 2021-03-12 COVID-19 VACCINE (2 - [facility] 00:00:00 [facility] series) [code = COVID-19 VACCINE (2 - Booster for Modern[employer] series)] Future Scheduled 2021-02-[address] [...] Medical Marilyn ter VACCINE (1)] Future Scheduled [address] [facility] 00:00:00 Counseling and Medical Cente r Screening (12+) [code = Tobacco Cessation Counseling and Screening (12+)] Future Scheduled [address] [facility] 00:00:00 [facility]ing [facility] Medical Cente r Screening (12+) [code = Tobacco Cessation Counseling and Screening (12+)] Future Scheduled [address] [facility] 00:00:00 [facility] Cent[facility] r Screening (12+) [code = Tobacco Cessation Counseling and Screening (12+)] Future Scheduled 1936 COVID-19 VACCINE (#1) CH [...] DXA [facility] 00:00:00 SCAN] [facility] Future Scheduled 1936 DXA SCAN [code = DXA [facility] 00:00:00 SCAN] [facility] Future Scheduled 1936 DXA SCAN [code = DXA [facility] 00:00:00 SCAN] [facility] Future Scheduled 1936 DXA SCAN [code = DXA [facility] 00:00:00 SCAN] [facility] Future Scheduled 1936 DXA SCAN [code = DXA [facility] 00:00:00 SCAN] [facility] Future Scheduled 1936 DXA SCAN [code = DXA [facility] 00:00:00 SCAN] [facility] Future Scheduled 1936 DXA SCAN [code = DXA [facility] 00:00:00 SCAN] [facility] Encounters Start End Encounter Admission Attending Care Care Encounter Source Date/Time Date/Time Type Type Clinicians Facility Department ID 2020-11-17 Inpatient ER [facility] [id number] [facility] 14:52:09 LILIANA 2022-12-26 2022-12-26 Outpatient R TERES[facility] [id number] Univers 10:00:00 10:00:00 CECI [facility] 2022-12-05 2022-12-05 [id number] Univers 15:30:00 15:30:00 karina [facility] 2022-11-11 2022-11-11 Systems Programmer Analyst Lab, Ang - Db [facility] [id number] Univers 16:15:00 16:26:09 [facility] [id number] [facility] [id number] Kilo as KRZYSZTOF?BLEA [id number] [address] MEDICAL OFFICE BUILDING 2022-11-11 2022-11-11 Outpatient R ANGELA [facility] [id number] Univers 14:20:00 16:01:27 ANGELA CUNNINGHAM [facility] 2022-11-11 2022-11-11 Office [place], [facility] [id number] Univers 14:20:00 16:01:27 Visit [facility] [id number] ity of [place] [id number] Kilo as KRZYSZTOF?BLEA [id number] [address] OFFICE [facility] 2022-11-03 2022-11-03 Telephone [facility] [id number] Univers 00:00:00 00:00:00 [facility] [id number] [place]y of [place] [id number] Kilo as KRZYSZTOF?BLEA [id number] [address] 2022-11-01 2022-11-01 Outpatient R ANGELA [facility] [id number] Univers 10:00:00 10:00:00 ANGELA CUNNINGHAM [facility] 2022-10-28 2022-10-28 Telephone [facility] [id number] [facility] 00:00:00 00:00:00 Ceci ALBRECHT [id number] [id number] [id number] [facility] NAL 0[address] [facility] 2022-10-26 2022-10-26 Systems Programmer Analyst 2, Adc Lab [facility] [id number] Univers 11:15:00 11:30:00 Visit Ceci Lo [id number] 10 [id number] [id number] [facility] NAL 353 [facility] 2022-10-26 2022-10-26 Outpatient R TERESITA [facility] [id number] Univers 10:00:00 10:48:18 SENDIL karina [facility] 2022-10-26 2022-10-26 Office [facility] [id number] Univers 10:00:00 10:48:18 Visit Ceci ALBRECHT [id number] ity [facility] [id number] [id number] [address] 2022-10-07 2022-10-07 Outpatient R ANGELA [facility] [id number] Univers 10:20:00 10:20:00 [facility] 2022-09-27 2022-09-27 Refill [facility] [id number] Univers 00:00:00 00:00:00 [facility] [id number] ity of [place] [id number] Kilo as KRZYSZTOF?BLEA [id number] [address] 2022-09-22 2022-09-22 [facility] [id number] Univers 15:00:00 16:06:41 SENDIL ity [facility] 2022-09-22 2022-09-22 Office [facility] [id number] Univers 15:00:00 16:06:41 Visit Sendil Courtney ALBRECHT [id number] [id number] [id number] [address] 2022-09-13 2022-09-13 Patient Doctor [facility] [id number] Univers 00:00:00 00:00:00 Secure Msg Unassigned, [facility] [id number] [place]y [place] [id number] Kilo as KRZYSZTOF?BLEA [id number] [address] OFFICE [facility] 2022-09-12 2022-09-12 Telephone [facility] 1.2.828.420 [id number] Univers 00:00:00 00:00:00 Sendil ArianneHGertrude ALBRECHT 350.1.13.10 ity of [facility] [place].2.[place].2.[place] [phone] [address] 2022-09-08 2022-09-08 Systems Programmer Analyst Lab, Thom - Db [facility] 1.2.840.1 14 [id number] Univers 11:30:00 11:41:31 Visit Angela Cunningham [facility] 350.1.13.10 ity of [place] 4.2.7.2.686 Kilo as KRZYSZTOF?BLEA [id number] [facility] NATALIE 353 [facility] OFFICE [facility] 2022-09-08 2022-09-08 Outpatient R OCTAVIO [facility] [id number] Univers 10:00:00 11:13:59 ANGELA CUNNINGHAM [facility] 2022-09-08 2022-09-08 Office [facility] 1.2.840.114 [id number] Univers 10:00:00 11:13:59 Visit [facility] 350.1.13.10 ity of [place] 4.2.7.2.686 Kilo as KRZYSZTOF?BLEA [phone] [facility] 044 [facility] OFFICE [facility] 2022-08-09 2022-08-09 Outpatient R TERESITA [facility] [id number] Univers 13:00:00 14:10:05 [facility]-09 2022-08-09 [facility] 1.2.840.114 [id number] Univers 13:00:00 14:10:05 Visit Mariajosebekah Valdez [place] 350.1.13.10 ity of [place].2.7.2.[place] [phone] Tx salvatore NAL 059 [facility] 2022-08-09 2022-08-09 Office [facility] 1.2.840.114 [id number] Univers 10:00:00 11:36:08 Visit [facility] 350.1.13.10 ity of [place] 4.2.7.2.686 Kilo as KRZYSZTOF?BLEA [phone] [facility] 044 [facility] OFFICE [facility] 2022-08-08 2022-08-08 Orders Doctor TIJERINA 1.2.840.114 [id number] Univers 00:00:00 00:00:00 Only Unassigned, MACKENZIE 350.1.13.10 ity of [place] [facility] 4.2.7.2.686 Kilo as [phone] [address] 2022-08-04 2022-08-04 Refill [facility] 1.2.840.114 [id number] Univers 00:00:00 00:00:00 Angela HEALTH 350.1.13.10 ity of [place] 4.2.7.2.686 Kilo as KRZYSZTOF?BLEA [phone] [address] MEDICAL OFFICE [facility] 2022-07-27 2022-07-27 Telephone [facility] 1.2.751.638 [id number] Univers 00:00:00 00:00:00 Sendil ArianneHGertrude [place] 350.1.13.10 ity of [place] 4.2.7.2.[place] [phone] [facility] 059 [facility] 2022-07-21 2022-07-21 Orders Doctor LILLIANA 1.2.840.114 [id number] Univers 00:00:00 00:00:00 Only Unassigned, MACKENZIE 350.1.13.10 ity of [place] [facility]OS[facility] 4.2.7.2.686 Kilo as [phone] [address] 2022-07-18 2022-07-18 Refill [facility] 1.2.840.114 [id number] Univers 00:00:00 00:00:00 Angela HEALTH 350.1.13.10 ity of [place] 4.2.7.2.686 Kilo as KRZYSZTOF?BLEA [phone] [address] MEDICAL OFFICE [facility] 2022-07-13 2022-07-13 Patient [facility] 1.2.840.114 [id number] Univers 00:00:00 00:00:00 Secure Msg Angela HEALTH 350.1.13.10 ity of [place] 4.2.7.2.686 Kilo as KRZYSZTOF?BLEA [phone] [address] MEDICAL OFFICE [facility] 2022-07-12 2022-07-12 Outpatient R TERESITA [facility] [id number] Univers 14:00:00 16:32:11 SENDIL ity of [facility] 2022-07-12 2022-07-12 Office Teresita [facility] 1.2.840.114 [id number] Univers 14:00:00 16:32:11 Visit Ceci ALBRECHT 350.1.13.10 ity of [place].2.7.2.[place] [id number] [address] 2022-07-12 2022-07-12 Telephone Teresita [facility] 1.2.583.814 [id number] Univers 00:00:00 00:00:00 Sendbekah ALBRECHT 350.1.13.10 ity of [place] 4.2.7.2.[place] [phone] [address] 2022-07-11 2022-07-11 Orders Doctor LILLIANA 1.2.840.114 [id number] Univers 00:00:00 00:00:00 Only Unassigned, MACKENZIE 350.1.13.10 ity of [facility] 4.2.7.2.686 Kilo as [phone] [address] 2022-07-08 2022-07-08 Systems Programmer Analyst Lab, Thom - Sd [facility] 1.2.840.1 14 [id number] Univers 09:00:00 09:15:00 Visit Angela Cunningham [facility] 350.1.13.10 ity of [place] 4.2.7.2.686 Kilo as KRZYSZTOF?BLEA [phone] [facility] [address] MEDICAL OFFICE BUILDING 2022-07-08 2022-07-08 Outpatient R ANGELA CUNNINGHAM [facility] [id number] Univers 09:00:00 09:00:00 ANGELA CUNNINGHAM [facility] 2022-07-08 2022-07-08 Refill Octavio [facility] 1.2.840.114 [id number] Univers 00:00:00 00:00:00 [facility] 350.1.13.10 ity of [place] 4.2.7.2.686 Kilo as KRZYSZTOF?BLEA [id number] [address] MEDICAL OFFICE BUILDING 2022-07-01 2022-07-01 Outpatient R ANGELA CUNNINGHAM [facility] [id number] [facility] 11:20:00 11:20:00 TASIA CUNNINGHAMINE karen [facility] 2022-07-01 2022-07-01 Orders Doctor LILLIANA 1.2.840.114 [id number] [facility] 00:00:00 00:00:00 Only Unassigned, MACKENZIE 350.1.13.10 ity of [place] HOSPITAL 4.2.7.2.686 Kilo as [phone] [address] 2022-06-28 2022-06-28 Outpatient R ANGELA CUNNINGHAM [facility] [id number] [facility] 09:20:00 10:19:27 TASIA CUNNINGHAMKENNY noekaren [facility] 2022-06-28 2022-06-28 Office [facility] 1.2.840.114 [id number] [facility] 09:20:00 10:19:27 Visit [facility] 350.1.13.10 ity of [place] 4.2.7.2.686 Kilo as KRZYSZTOF?BLEA [id number] [address] MEDICAL OFFICE [facility] 2022-06-28 2022-06-28 Telephone [facility] 1.2.404.889 [id number] Univers 00:00:00 00:00:00 [facility] 350.1.13.10 ity of [place] 4.2.7.2.686 Kilo as KRZYSZTOF?BLEA [id number] [address] OFFICE [facility] 2022-06-28 2022-06-28 Orders Doctor TIJERINA 1.2.840.114 [id number] Univers 00:00:00 00:00:00 Only Unassigned, MACKENZIE 350.1.13.10 ity of [place] HOSPITAL 4.2.7.2.686 Kilo as [phone] [address] 2022-06-24 2022-06-24 Telephone [facility] 1.2.613.756 [id number] Univers 00:00:00 00:00:00 Ceci ALBRECHT 350.1.13.10 ity of [place].2.7.2.[place] [phone] Tx dical NAL [address] [facility] 2022-06-24 2022-06-24 Orders Doctor LILLIANA 1.2.840.114 [id number] Univers 00:00:00 00:00:00 Only Unassigned, MACKENZIE 350.1.13.10 ity of [place] HOSPITAL 4.2.7.2.686 Kilo as [phone] [facility] [address] 2022-06-23 2022-06-23 [facility] 1.2.840.114 [id number] Univers 08:13:16 23:59:00 Encounter Sendil Courtney [place] 350.1.13.10 ity of [facility] 4.2.7.2.[place] [phone] [facility] [address] 2022-06-23 2022-06-23 [facility] 1.2.840.114 [id number] Univers 08:12:54 08:12:54 Encounter Sendil Courtney [place] 350.1.13.10 ity of [facility] 4.2.7.2.[place] [id number] [facility] [address] 2022-06-23 2022-06-23 [facility] 1.2.840.114 [id number] Univers 08:12:41 08:12:41 Encounter Sendil Courtney [place] 350.1.13.10 ity of [place] 4.2.7.2.[place] [id number] [facility] [address] 2022-06-23 2022-06-23 [facility] [id number] Univers 08:12:25 08:11:00 SENDIL ity of [facility] 2022-06-23 2022-06-23 [facility] 1.2.840.114 [id number] Univers 08:00:00 08:11:00 Encounter Sendil Courtney [place] 350.1.13.10 ity of [place].2.7.2.[place] [id number] [facility] [address] 2022-06-21 2022-06-21 Outpatient R LO, [facility] [id number] Univers 09:00:00 09:00:00 SENDIL ity of [facility] 2022-06-21 2022-06-[address] [facility] 1.2.814.561 [id number] Univers 00:00:00 00:00:00 Sendbekah ALBRECHT 350.1.13.10 ity of [facility] 4.2.7.2.[place] [phone] Tx dical NAL 9 [facility] 2022-06-21 2022-06-21 Orders Doctor LILLIANA 1.2.840.114 [id number] Univers 00:00:00 00:00:00 Only Unassigned, MACKENZIE 350.1.13.10 ity of [place] [facility] 4.2.7.2.686 Kilo as [phone] [address] 2022-06-20 2022-06-20 Systems Programmer Analyst Abdiel, Adc Lab Main [facility] 1.2.8 40.114 [id number] Univers 07:45:00 08:00:00 Visit Ceci Lo 350.1.13. 10 ity of [facility] 4.2.7.2.[place] [phone] Tx dical [facility] 353 [facility] 2022-06-20 2022-06-20 [facility] [id number] Univers 07:45:00 07:45:00 SENDIL ity of [facility] 2022-06-16 2022-06-[address] [facility] 1.2.608.298 [id number] Univers 00:00:00 00:00:00 Ceci ALBRECHT 350.1.13.10 ity of [facility] 4.2.7.2.[place] [id number] Tx dical NAL [address] [place] [address] 2022-06-16 2022-06-[address] [facility] 1.2.284.621 [id number] Univers 00:00:00 00:00:00 Sendbekah ALBRECHT 350.1.13.10 ity of [facility] 4.2.7.2.[place] [phone] Tx dical NAL 059 [facility] 2022-06-15 2022-06-15 Telephone [facility] 1.2.856.239 [id number] Univers 00:00:00 00:00:00 Sendil Courtney ALBRECHT 350.1.13.10 ity of [place] 4.2.7.2.[place] [phone] Tx dical NAL [address] [place] [address] 2022-06-13 2022-06-13 [facility] [id number] Univers 15:30:00 15:30:00 SENDIL ity [facility] 2022-06-13 2022-06-13 Telephone [facility] 1.2.219.297 [id number] Univers 00:00:00 00:00:00 Sendil Courtney ALBRECHT 350.1.13.10 ity of [facility] 4.2.7.2.[place] [id number] Tx dictn NAL [address] [place] [address] 2022-06-11 2022-06-11 Systems Programmer Analyst Abdiel, Adc Lab Main [facility] 1.2.8 40.114 [id number] Univers 08:30:00 08:45:00 Visit Ceci Lo 350.1.13. 10 ity of [place] 4.2.7.2.[place] [phone] Tx dical NAL [address] [place] [address] 2022-06-11 2022-06-11 Outpatient [facility] [id number] Univers 08:30:00 08:30:00 SENDIL ity [facility] 2022-06-10 2022-06-10 Systems Programmer Analyst Abdiel, Adc Lab Main [facility] 1.2.8 40.114 [id number] Univers 09:15:00 09:30:00 Visit Ceci Lo 350.1.13. 10 ity of [place] 4.2.7.2.[place] [id number] Tx dical NAL [address] [place] [address] 2022-06-10 2022-06-10 Outpatient R TERESITA [facility] [id number] Univers 09:15:00 09:15:00 SENDIL [facility] 2022-06-10 2022-06-10 Ref[facility] 1.2.840.114 [id number] Univers 00:00:00 00:00:00 [facility] 350.1.13.10 ity of [place] 4.2.7.2.686 Kilo as KRZYSZTOF?BLEA [phone] [address] OFFICE [facility] 2022-06-10 2022-06-10 Telephone [facility] 1.2.699.408 [id number] Univers 00:00:00 00:00:00 Sendil Courtney [place] 350.1.13.10 ity of [place] 4.2.7.2.[place] [id number] [address] 2022-06-09 2022-06-09 Outpatient [facility] [id number] Univers 13:30:00 14:26:56 SENDIL karen [facility] 2022-06-09 2022-06-[address] [facility] 1.2.840.114 [id number] Univers 13:30:00 14:26:56 Visit Sendbekah ALBRECHT 350.1.13.10 ity of [place] 4.2.7.2.[place] [id number] [address] 2022-06-08 2022-06-08 Patient [facility] 1.2.840.114 [id number] Univers 00:00:00 00:00:00 Outreach [facility] 350.1.13.10 i ty of [place] 4.2.7.2.686 Kilo as KRZYSZTOF?BLEA [id number] [address] OFFICE [facility] 2022-06-07 2022-06-07 Outpatient R ANGELA CUNNINGHAM [facility] [id number] Univers 16:20:00 17:24:14 ANGELA CUNNINGHAM karen [facility] 2022-06-07 2022-06-07 Office [facility] 1.2.840.114 [id number] Univers 16:20:00 17:24:14 Visit [facility] 350.1.13.10 ity of [place] 4.2.7.2.686 Kilo as KRZYSZTOF?BLEA [phone] [address] MEDICAL OFFICE BUILDING 2022-06-07 2022-06-07 Telephone [facility] 1.2.946.261 [id number] Univers 00:00:00 00:00:00 [facility] 350.1.13.10 ity of [place] 4.2.7.2.686 Kilo as KRZYSZTOF?BLEA [id number] [address] OFFICE BUILDING 2022-06-07 2022-06-07 Orders Doctor LILLIANA 1.2.840.114 [id number] Univers 00:00:00 00:00:00 Only Unassigned, MACKENZIE 350.1.13.10 ity of [place] [facility] 4.2.7.2.686 Kilo as [id number] [address] 2022-06-02 2022-06-02 Outpatient R ANGELA CUNNINGHAM [facility] [id number] [facility] 14:20:00 14:20:00 ANGELA CUNNINGHAM [facility] 2022-05-28 2022-06-01 Inpatient ER [facility] Medical ICU 20 [id number] [facility] 07:43:00 15:42:00 VALERIE 2022-05-28 2022-06-01 [facility] [id number] 07:43:00 15:42:00 Encounter Kayla Hui, [facility] Catherine Garcia Kinjal M 2022-05-28 2022-06-01 [facility] [id number] 07:43:00 15:42:00 Encounter Kayla Hui, [facility] Catherine Garcia Kinjal M 2022-06-01 2022-06-01 Outpatient R TERESITA [facility] [id number] Univers 15:30:00 15:30:00 SENDIL [facility] 2022-05-28 2022-05-28 Travel [facility] [id number] [facility] 00:[facility] 00:00:00 [facility] 2022-05-28 2022-05-[address] [facility] [id number] 00:00:00 00:00:00 Only [facility] 2022-05-28 2022-05-28 Travel [facility] [id number] [facility] 00:[facility] 00:00:00 [facility] 2022-05-28 2022-05-[address] [facility] [id number] 00:00:00 00:00:00 Only [facility] 2022-05-25 2022-05-25 Outpatient Braulio LO [facility] [id number] Univers 14:00:00 15:24:40 SENDIL [facility] 2022-05-25 2022-05-25 Office [facility] 1.2.840.114 [id number] Univers 14:00:00 15:24:40 Visit Ceci ALBRECHT 350.1.13.10 [facility] 4[place]2.[place].2.[place] [id number] Tx diccleopatra PANTOJA 059 [facility] 2022-05-17 2022-05-17 Outpatient R ANGELA CUNNINGHAM [facility] [id number] Univers 13:40:00 15:02:27 ANGELA CUNNINGHAM [facility] 2022-05-17 2022-05-17 Office [facility] 1.2.840.114 [id number] Univers 13:40:00 15:02:27 Visit [facility] 350.1.13.10 itkaren [facility] 4.2.7.2.686 Kilo as KRZYSZTOF?BLEA [phone] Tx dical KNEY 044 [facility] OFFICE BUILDING 2022-05-17 2022-05-17 Orders Doctor TIJERINA 1.2.840.114 [id number] Univers 00:00:00 00:00:00 Only Unassigned, MACKENZIE 350.1.13.10 ity of [place] HOSPITAL 4.2.7.2.686 Kilo as [id number] [address] 2022-04-23 2022-04-23 Refshruthi [facility]aren[facility] 1.2.840.114 [id number] Univers 00:00:00 00:00:00 Angela HEALTH 350.1.13.10 ity of [place] 4.2.7.2.686 Kilo as KRZYSZTOF?BLEA [id number] [address] MEDICAL OFFICE [facility] 2022-04-22 2022-04-22 [facility] 1.2.840.114 [id number] Univers 00:00:00 00:00:00 Angela HEALTH 350.1.13.10 ity of [place] 4.2.7.2.686 Kilo as KRZYSZTOF?BLEA [id number] [address] OFFICE [facility] 2022-04-15 2022-04-15 Outpatient [facility] [id number] Univers 09:20:00 09:20:00 [facility] 2022-04-12 2022-04-12 Orders Doctor TIJERINA 1.2.840.114 [id number] Univers 00:00:00 00:00:00 Only Unassigned, MACKENZIE 350.1.13.10 ity of [place] HOSPITAL 4.2.7.2.686 Kilo as [id number] [address] 2022-04-11 2022-04-11 Outpatient WON SALDIVAR [facility] [id number] Univers 09:00:00 09:00:00 WON MATT [facility] 2022-04-08 2022-04-08 Outpatient WON SALDIVAR [facility] [id number] Univers 13:40:00 14:51:58 WON MATT [facility] 2022-04-08 2022-04-08 Office Jace [facility] 1.2.840.114 [id number] Univers 13:40:00 14:51:58 Visit [facility] 350.1.13.10 ity of [place] 4.2.7.2.686 Kilo as KRZYSZTOF?BLEA [id number] [address] OFFICE [facility] 2022-04-08 2022-04-08 Nurse Nurse, Lucie Neurology [facility] 1. 2.840.114 [id number] Univers 13:00:00 14:50:23 Visit Unknown, [facility] 350.1.13.10 ity of [place] 4.2.7.2.686 Kilo as KRZYSZTOF?BLEA [id number] [address] MEDICAL OFFICE [facility] 2022-04-03 2022-04-03 Orders Doctor LILLIANA 1.2.840.114 [id number] Univers 00:00:00 00:00:00 Only Unassigned, BEAVER MEADOWS 350.1.13.10 ity of [place] [facility] 4.2.7.2.686 Kilo as [phone] [address] 2022-03-24 2022-03-24 Telephone [facility] 1.2.103.074 [id number] Univers 00:00:00 00:00:00 [facility] 350.1.13.10 ity of [place] 4.2.7.2.686 Kilo as KRZYSZTOF?BLEA [id number] [address] OFFICE [facility] 2022-03-18 2022-03-18 Telephone Octavio [facility] 1.2.749.811 [id number] Univers 00:00:00 00:00:00 [facility] 350.1.13.10 ity of [place] 4.2.7.2.686 Kilo as KRZYSZTOF?BLEA [id number] [address] MEDICAL OFFICE [facility] 2022-03-15 2022-03-15 Telephone Jace [facility] 1.2.840.114 [id number] Univers 00:00:00 00:00:00 [facility] 350.1.13.10 ity of [place] 4.2.7.2.686 Kilo as KRZYSZTOF?BLEA [id number] [address] OFFICE [facility] 2022-03-11 2022-03-11 Systems Programmer Analyst Lab, Ang - Db [facility] 1.2.840.1 14 [id number] Univers 15:30:00 15:47:42 Visit [facility] 350.1.13.10 ity of [place] 4.2.7.2.686 Kilo as KRZYSZTOF?BLEA [id number] Tx salvatore ESTRADA 353 [facility] OFFICE [facility] 2022-03-11 2022-03-11 Outpatient R OCTAVIO [facility] [id number] Univers 13:40:00 15:35:06 [facility] 2022-03-11 2022-03-11 Office [facility] 1.2.840.114 [id number] Univers 13:40:00 15:35:06 Visit [facility] 350.1.13.10 ity of [place] 4.2.7.2.686 Kilo as KRZYSZTOF?BLEA [phone] Tx salvatore ESTRADA 044 [facility] OFFICE [facility] 2022-03-11 2022-03-11 Office [facility] 1.2.840.114 [id number] Univers 08:00:00 09:15:25 Visit [facility] 350.1.13.10 it y of [place] 4.2.7.2.686 Kilo as KRZYSZTOF?BLEA 609.9916452 Tx salvatore ESTRADA 092 [facility] OFFICE [facility] 2022-03-04 2022-03-04 Outpatient R NIRMALA [facility] [id number] Univers 10:30:00 10:30:00 ARASELI karen [facility] 2022-02-25 2022-02-25 Urgent Tamela Lucia [facility] ..840.114 [id number] Univers 17:40:00 18:00:00 Care Unknown, [facility] 350.1.13.10 ity of [place] 4.2.7.2.686 Kilo as KRZYSZTOF?BLEA [id number] [facility] DA[facility] 370 [facility] OFFICE [facility] 2022-02-25 2022-02-25 Outpatient Braulio LUCIA [facility] [id number] Univers 17:40:00 17:40:00 TAMELA collins [facility] 2022-02-25 2022-02-25 Outpatient R OCTAVIO [facility] [id number] Univers 14:00:00 14:00:00 ANGELA itkaren [facility] 2022-02-23 2022-02-23 Orders Doctor LILLIANA 1.2.840.114 [id number] Univers 00:00:00 00:00:00 Only Unassigned, MACKENZIE 350.1.13.10 ity of [place] [facility] 4.2.7.2.686 Kilo as [phone] [address] 2022-01-21 2022-01-21 [facility] [id number] Univers 15:40:00 16:34:00 ANGELA ity [facility] 2022-01-21 2022-01-21 [facility] 1.2.840.114 [id number] Univers 15:40:00 16:34:00 Visit [facility] 350.1.13.10 ity [place] 4.2.7.2.686 Kilo as KRZYSZTOF?BLEA [phone] [address] MEDICAL OFFICE [facility] 2021-12-31 2021-12-31 Outpatient R OCTAVIO, [facility] [id number] Univers 11:20:00 11:20:00 [facility] 2021-12-31 2021-12-31 Orders Doctor LILLIANA 1.2.840.114 [id number] Univers 00:00:00 00:00:00 Only Unassigned, MACKENZIE 350.1.13.10 ity of [place] [facility] 4.2.7.2.686 Kilo as [phone] [address] 2021-12-24 2021-12-24 Outpatient R ODILON, [facility] [id number] Univers 14:30:00 15:49:08 CHARY itkaren [facility] 2021-12-24 2021-12-24 [facility] 1.2.840.114 [id number] Univers 14:30:00 15:49:08 Visit Chary A HEALTH 350.1.13.10 i ty of [place] 4.2.7.2.686 Kilo as KRZYSZTOF?BLEA [phone] [place] [address] MEDICAL OFFICE [facility] 2021-12-23 2021-12-23 Abstract [facility] 1.2.840.114 [id number] Univers 00:00:00 00:00:00 Angela HEALTH 350.1.13.10 ity of [place] 4.2.7.2.686 Kilo as KRZYSZTOF?BLEA [phone] [place] salvatore ESTRADA [address] [place] [address] 2021-12-17 2021-12-17 Outpatient R BETO [facility] [id number] Univers 11:00:00 11:00:00 DANIEL collins o f [facility] 2021-12-17 2021-12-17 [facility] 1.2.840.114 [id number] Univers 00:00:00 00:00:00 Angeal HEALTH 350.1.13.10 [place] 4.2.7.2.686 Kilo as KRZYSZTOF?BLEA [phone] [facility] MARIZA[address] 2021-12-10 2021-12-10 Outpatient R OCTAVIO, [facility] [id number] Univers 09:20:00 09:20:00 [facility] 2021-12-10 2021-12-10 Outpatient R OCTAVIO, [facility] [id number] Univers 09:20:00 09:20:00 [facility] 2021-12-03 2021-12-03 [facility] [id number] Univers 13:40:00 14:38:59 [facility] 2021-12-03 [facility] 1.2.840.114 [id number] Univers 13:40:00 14:38:59 Visit [facility] 350.1.13.10 ity of [place] 4.2.7.2.686 Kilo as KRZYSZTOF?BLEA [phone] [place] salvatore ESTRADA [address] [place] [address] 2021-11-27 2021-11-27 [facility] 1.2.840.114 [id number] Univers 00:00:00 00:00:00 Angela HEALTH 350.1.13.10 ity of [place] 4.2.7.2.686 Kilo as KRZYSZTOF?BLEA [phone] Tx salvatore ESTRDAA [address] MEDICAL OFFICE BUILDING 2021-11-26 2021-11-26 Outpatient WON SALDIVAR [facility] [id number] Univers 15:40:00 16:24:04 WON MATT [facility] 2021-11-26 2021-11-26 Office Jace [facility] 1.2.840.114 [id number] Univers 15:40:00 16:24:04 Visit Won Serra [facility] 350.1.13.10 ity of [place] 4.2.7.2.686 Kilo as KRZYSZTOF?BLEA [phone] Tx salvatore ESTRADA [address] MEDICAL OFFICE [facility] 2021-11-19 2021-11-19 Outpatient WON SALDIVAR [facility] [id number] Univers 09:57:12 23:59:00 WON MATT kusumkaren [facility] 2021-11-19 2021-11-19 [facility] 1.2.577.287 [id number] Univers 09:57:12 23:59:00 Encounter Won Serra [place] 350.1.13.10 ity of [place] 4.2.7.2.686 [place] [facility] [phone] [facility] [address] 2021-11-18 2021-11-18 Orders Doctor LILLIANA 1.2.840.114 [id number] Univers 00:00:00 00:00:00 Only Unassigned, MACKENZIE 350.1.13.10 [facility] 4.2.7.2.686 Kilo as [phone] [facility] [address] 2021-11-09 2021-11-09 Outpatient Braulio PÉREZ [facility] [id number] Univers 13:00:00 13:00:00 DANIEL mitchell [facility] 2021-11-05 2021-11-05 Outpatient Braulio CUNNINGHAM [facility] [id number] Univers 10:40:00 10:40:00 ANGELA collins [facility] 2021-11-02 2021-11-02 Outpatient Braulio MATT WON [facility] [id number] Univers 13:00:00 14:14:42 WON MATT ity of [facility] 2021-11-02 2021-11-02 Office Jace [facility] 1.2.840.114 [id number] Univers 13:00:00 14:14:42 Visit Won [facility] 350.1.13.10 ity of [place] 4.2.7.2.686 [place]ilo as KRZYSZTOF?BLEA [phone] [address] MEDICAL OFFICE [facility] 2021-11-01 2021-11-01 Orders Doctor LILLIANA 1.2.840.114 [id number] Univers 00:00:00 00:00:00 Only Unassigned, MACKENZIE 350.1.13.10 ity of [place] [facility] 4.2.7.2.686 Kilo as [phone] [address] 2021-10-28 2021-10-28 Telephone [facility] 1.2.827.853 [id number] Univers 00:00:00 00:00:00 Angela HEALTH 350.1.13.10 ity of [place] 4.2.7.2.686 Kilo as KRZYSZTOF?BLEA [phone] [address] OFFICE [facility] 2021-10-26 2021-10-26 Telephone [facility] 1.2.252.324 [id number] Univers 00:00:00 00:00:00 Angela HEALTH 350.1.13.10 ity of [place] 4.2.7.2.686 Kilo as KRZYSZTOF?BLEA [phone] [address] MEDICAL OFFICE [facility] 2021-10-25 2021-10-25 [facility] [id number] Univers 14:40:00 15:55:58 [facility] 2021-10-25 2021-10-25 Office [facility] 1.2.840.114 [id number] Univers 14:40:00 15:55:58 Visit [facility] 350.1.13.10 ity of [place] 4.2.7.2.686 Kilo as KRZYSZTOF?BLEA [phone] [address] MEDICAL OFFICE [facility] 2021-10-25 2021-10-25 Telephone [facility] 1.2.454.637 [id number] Univers 00:00:00 00:00:00 Angela HEALTH 350.1.13.10 ity of [place] 4.2.7.2.686 Kilo as KRZYSZTOF?BLEA [phone] [address] OFFICE [facility] 2021-10-25 2021-10-25 Orders Doctor TIJERINA 1.2.840.114 [id number] Univers 00:00:00 00:00:00 Only Unassigned, MACKENZIE 350.1.13.10 ity of [place] [facility] 4.2.7.2.686 Kilo as [phone] [address] 2021-10-20 2021-10-20 Telephone [facility] 1.2.767.052 [id number] Univers 00:00:00 00:00:00 Angela HEALTH 350.1.13.10 ity of [place] 4.2.7.2.686 Kilo as KRZYSZTOF?BLEA [phone] [address] 2021-09-24 2021-09-24 [facility] [id number] Univers 08:40:00 08:40:00 [facility] 2021-09-24 2021-09-24 Outpatient [facility] [id number] Univers 08:30:00 08:30:00 [facility] 2021-09-17 2021-09-17 Outpatient WON SALDIVAR [facility] [id number] Univers 11:00:00 11:00:00 WON MATT [facility] 2021-09-13 2021-09-13 Telephone [facility] 1.2.910.321 [id number] Univers 00:00:00 00:00:00 Angela HEALTH 350.1.13.10 ity of [place] 4.2.7.2.686 Kilo as KRZYSZTOF?BLEA [phone] [address] 2021-09-13 2021-09-13 Orders Doctor TIJERINA 1.2.840.114 [id number] Univers 00:00:00 00:00:00 Only Unassigned, MACKENZIE 350.1.13.10 ity of [place] [facility] 4.2.7.2.686 Kilo as [phone] [address] 2021-09-10 2021-09-10 Outpatient R OCTAVIO, [facility] [id number] Univers 16:00:00 17:05:49 ANGELA ity [facility] 2021-09-10 2021-09-10 Office [facility] 1.2.840.114 [id number] Univers 16:00:00 17:05:49 Visit [facility] 350.1.13.10 ity of [place] 4.2.7.2.686 Kilo as KRZYSZTOF?BLEA [phone] [address] MEDICAL OFFICE [facility] 2021-09-05 2021-09-05 Telephone [facility] 1.2.525.913 [id number] Univers 00:00:00 00:00:00 Chary A HEALTH 350.1.13.10 i ty of [place] 4.2.7.2.686 Kilo as KRZYSZTOF?BLEA [phone] [address] OFFICE [facility] 2021-09-03 2021-09-03 Systems Programmer Analyst Lab, Ang - Db [facility] 1.2.840.1 14 [id number] Univers 07:45:00 08:09:03 Visit Octavio, [facility] 350.1.13.10 ity of [place] 4.2.7.2.686 Kilo as KRZYSZTOF?BLEA [phone] [address] MEDICAL OFFICE [facility] 2021-09-03 2021-09-03 Outpatient R NADINEKaren [facility] [id number] Univers 07:45:00 07:45:00 ANGELA ity [facility] 2021-09-02 2021-09-02 Telephone [facility] 1.2.835.595 [id number] Univers 00:00:00 00:00:00 Angela HEALTH 350.1.13.10 ity of [place] 4.2.7.2.686 Kilo as KRZYSZTOF?BLEA [phone] Me dical KNEY 044 [facility] 2021-08-27 2021-08-27 Systems Programmer Analyst Lab, Ang - Db [facility] 1.2.840.1 14 [id number] Univers 15:30:00 15:45:00 Visit Angela Cunningham [facility] 350.1.13.10 ity of [place] 4.2.7.2.686 Kilo as KRZYSZTOF?BLEA [phone] Tx salvatore ESTRADA 353 [facility] 2021-08-27 2021-08-27 Outpatient R OCTAVIO [facility] [id number] Univers 14:00:00 15:19:02 [facility] 2021-08-27 2021-08-27 Office [facility] 1.2.840.114 [id number] Univers 14:00:00 15:19:02 Visit [facility] 350.1.13.10 ity of [place] 4.2.7.2.686 Kilo as KRZYSZTOF?BLEA [phone] Tx salvatore DAWKINS 044 [facility] 2021-08-20 2021-08-20 Isa [facility] 1.2.840.114 [id number] Univers 00:00:00 00:00:00 Chary A HEALTH 350.1.13.10 i ty of [place] 4.2.7.2.686 Kilo as KRZYSZTOF?BLEA [phone] Tx salvatore ESTRADA 044 [facility] 2021-08-16 2021-08-16 Patient Doctor LILLIANA 1.2.840.114 [id number] Univers 00:00:00 00:00:00 Secure Msg Unassigned, MACKENZIE 350.1.13.10 ity of [place] [facility] 4.2.7.2.686 Kilo as [phone] [address] 2021-07-21 2021-07-21 Patient Doctor LILLIANA 1.2.840.114 [id number] Univers 00:00:00 00:00:00 Secure Msg Unassigned, MACKENZIE 350.1.13.10 ity of [place] [facility] 4.2.7.2.686 Kilo as [phone] [address] 2021-07-09 2021-07-09 Outpatient R ODILON [facility] [id number] Univers 16:00:00 17:29:20 CHARY collins [facility] 2021-07-09 2021-07-09 Office [facility] 1.2.840.114 [id number] Univers 16:00:00 17:29:20 Visit Chary Goyal HEALTH 350.1.13.10 i ty of [place] 4.2.7.2.686 Kilo as KRZYSZTOF?BLEA [phone] [facility] [address] MEDICAL OFFICE [facility] 2021-07-09 2021-07-09 Out[facility] [id number] Univers 16:00:00 17:29:20 CHARY karen [facility] 2021-06-09 2021-06-09 Case Rea [facility] 1.2.840.114 [id number] Univers 00:00:00 00:00:00 Management Rania HEALTH 350.1.13.10 ity of [place] 4.2.7.2.686 Kilo as KRZYSZTOF?BLEA [phone] [address] OFFICE [facility] 2021-06-09 2021-06-09 Tapan Mccartney [facility] 1.2.840.114 [id number] Univers 00:00:00 00:00:00 (Out) Ree HEALTH 350.1.13.10 it y of [place] 4.2.7.2.686 Kilo as KRZYSZTOF?BLEA [phone] [address] OFFICE [facility] 2021-06-08 2021-06-08 Laboratory Only, Ang Db Test [facility] 1.2.8 40.114 [id number] Univers 09:15:00 09:30:00 Only Rambo Tera HEALTH 350.1.13.10 ity of [place] 4.2.7.2.686 Kilo as KRZYSZTOF?BLEA [phone] [address] OFFICE [facility] 2021-06-08 2021-06-08 Outpatient R RAMBO [facility] [id number] Univers 09:15:00 09:15:00 [facility] 2021-05-17 2021-05-17 Outpatient R JOEL [facility] [id number] Univers 13:30:00 13:30:00 karina NAYAKPREMACRYS [facility] 2021-05-13 2021-05-13 Orders Doctor LILLIANA 1.2.840.114 [id number] Univers 00:00:00 00:00:00 Only Unassigned, MACKENZIE 350.1.13.10 ity of [place] [facility]OSPITAL 4.2.7.2.686 Kiol as [phone] [facility] [address] 2021-05-03 2021-05-03 Telephone [facility] 1.2.465.926 [id number] Univers 00:00:00 00:00:00 Amaya HEALTH 350.1.13.10 it y of [place] 4.2.7.2.686 Kilo as KRZYSZTOF?BLEA [phone] [address] MEDICAL OFFICE [facility] 2021-04-30 2021-04-30 Telephone [facility]andal[facility]OWN[facility] 1.2.762.201 [id number] Univers 00:00:00 00:00:00 Gerardo HEALTH 350.1.13.10 it y of [place] 4.2.7.2.686 Kilo as KRZYSZTOF?BLEA [phone] [address] OFFICE [facility] 2021-04-29 2021-04-29 Nurse LILLIANA Jain 1.2.840.114 [id number] Univers 00:00:00 00:00:00 Triage Pamela Roman [place] 350.1.13.10 it y of [facility] 4.2.7.2.686 Kilo as [phone] [facility] [address] 2021-04-29 2021-04-29 Isa [facility] 1.2.840.114 [id number] Univers 00:00:00 00:00:00 Wonrayna A [place] 350.1.13.10 ity of [place] 4.2.7.2.686 [place] PROFESS[place] [phone] [address] 2021-04-23 2021-04-23 Outpatient R BETO [facility] [id number] Univers 09:00:00 09:00:00 DANIEL mitchell [facility] 2021-04-14 2021-04-14 Outpatient R JOCE, [facility] [id number] Univers 09:30:00 09:30:00 WONDIFUL ity o f [facility] 2021-04-14 2021-04-14 Outpatient R JOCE, [facility] [id number] Univers 09:30:00 09:30:00 WONDIFUL ity o f [facility] 2021-04-05 2021-04-05 [facility] [id number] Univers 10:30:00 10:30:00 JESSICA ity of [facility] 2021-04-05 2021-04-05 Orders Doctor LILLIANA 1.2.840.114 [id number] Univers 00:00:00 00:00:00 Only Unassigned, MACKENZIE 350.1.13.10 ity of [place] [facility] 4.2.7.2.686 Kilo as [phone] [address] 2021-03-22 2021-03-22 Out[facility] [id number] Univers 11:30:00 12:40:29 AMAYA ity of [facility] 2021-03-22 2021-03-22 Office [facility] 1.2.840.114 [id number] Univers 11:30:00 12:40:29 Visit Amaya HEALTH 350.1.13.10 it y of [place] 4.2.7.2.686 Kilo as KRZYSZTOF?BLEA [phone] Tx salvatore ESTRADA [address] [place] [address] OFFICE BUILDING 2021-03-21 2021-03-21 Isa [facility] 1.2.840.114 [id number] Univers 00:00:00 00:00:00 Wondiful A HEALTH 350.1.13.10 ity of [place] 4.2.7.2.686 Kilo as PROFESSIO [phone] Tx salvatore PANTOJA [address] [place] [address] OFFICE BUILDING ONE 2021-02-22 2021-02-22 Office LAST Eric 1.2.840.114 [id number] Univers 14:30:00 15:00:00 Visit Jessica R Y HEALTH 350.1.13.10 ity of [facility] 4.2.7.2.686 [place] [phone] [address] 2021-02-22 2021-02-22 Outpatient R ARIAN, [facility] [id number] Univers 14:30:00 14:30:00 JESSICA ity [facility] 2021-02-22 2021-02-22 Outpatient R ARIAN, [facility] [id number] Univers 14:30:00 14:30:00 JESSICA ity [facility] 2021-01-25 2021-01-25 [facility] 1.2.840.114 [id number] Univers 00:00:00 00:00:00 Wondiful A HEALTH 350.1.13.10 ity of [place] 4.2.7.2.686 Kilo as PROFESSIO [phone] [address] OFFICE [facility] ONE 2021-01-21 2021-01-21 Beto [facility] 1.2.840.114 [id number] Univers 00:00:00 00:00:00 Management Wondiful A HEALTH 350.1.13.10 ity of [place] 4.2.7.2.686 Kilo as KRZYSZTOF?BLEA [phone] [address] OFFICE BUILDING 2021-01-21 2021-01-21 Beto [facility] 1.2.840.114 [id number] Univers 00:00:00 00:00:00 Management Wondiful A HEALTH 350.1.13.10 ity of [place] 4.2.7.2.686 Kilo as KRZYSZTOF?BLEA [phone] [address] OFFICE BUILDING 2021-01-20 2021-01-20 Outpatient R TERESITA, [facility] [id number] Univers 09:25:28 23:59:00 CECI ity [facility] 2021-01-20 2021-01-20 [facility] Austin Hobson [facility] 1.2.8 40.114 [id number] Univers 09:00:00 23:59:00 Ceci Aguilar [place] 350.1.1 3.10 ity of [place] 4.2.7.2.686 [place] MON[place] [phone] [address] 2021-01-15 2021-01-15 Outpatient R JOCE [facility] [id number] Univers 10:10:00 10:10:00 WONDIFUL ity o f [facility] 2021-01-15 2021-01-15 Imm/Inj Vaccine, Ang Db Cbc Fam [facility] 1. 2.840.114 [id number] Univers 08:47:34 08:57:34 Visit Austin Hobson HEALTH 350.1.13.1 0 ity of [place] 4.2.7.2.686 Kilo as KRZYSZTOF?BLEA [phone] [facility] [address] MEDICAL OFFICE [facility] 2021-01-15 2021-01-15 Systems Programmer Analyst Lab, Ang - Db [facility] 1.2.840.1 14 [id number] Univers 08:20:53 08:35:53 Visit Austin Hobson HEALTH 350.1.13.1 0 ity of [place] 4.2.7.2.686 Kilo as KRZYSZTOF?BLEA [phone] Tx salvatore ESTRADA 353 [facility] OFFICE [facility] 2021-01-14 2021-01-14 Office [facility] 1.2.840.114 [id number] Univers 13:02:10 13:52:29 Visit Austin A HEALTH 350.1.13.10 ity of [place] 4.2.7.2.686 Kilo as KRZYSZTOF?BLEA [phone] [facility] Departmentcleopatra [address] OFFICE [facility] 2021-01-14 2021-01-14 Outpatient R JOCE [facility] [id number] Univers 13:00:00 13:52:29 WONDIFUL ity o f [facility] 2020-12-04 2020-12-04 Hospital [facility] 1.2.662.716 [id number] Univers 12:31:25 23:59:00 Encounter Wondiful A [place] 350.1.13.10 ity of [place] 4.2.7.2.686 [facility] [phone] [address] 2020-12-04 2020-12-04 Outpatient R JOCE [facility] [id number] [facility] 10:15:00 12:44:29 WONDIFUL ity o f [facility] 2020-12-04 2020-12-04 Office Joce [facility] 1.2.840.114 [id number] [facility] 10:12:12 12:44:29 Visit Wondiful A HEALTH 350.1.13.10 ity of [place] 4.2.7.2.686 Kilo as KRZYSZTOF?BLEA [phone] [address] OFFICE [facility] 2020-10-16 2020-10-16 Patient [facility] 1.2.840.114 [id number] Univers 00:00:00 00:00:00 Secure Msg Wondiful A Health 350.1.13.10 ity of [place] 4.2.7.2.686 Kilo as Krzysztof?Blea [phone] [address] Office [facility] 2020-10-13 2020-10-13 Telephone Joce [facility] 1.2.840.114 [id number] Univers 00:00:00 00:00:00 Wondiful A Health 350.1.13.10 ity of [place] 4.2.7.2.686 Kilo as Krzysztof?Blea [phone] [address] Office [facility] 2020-10-08 2020-10-08 Patient Doctor LILLIANA 1.2.840.114 [id number] Univers 00:00:00 00:00:00 Secure Msg Unassigned, MACKENZIE 350.1.13.10 ity of [place] [facility] 4.2.7.2.686 Kilo as [phone] [address] 2020-10-08 2020-10-08 Refill [facility] 1.2.840.114 [id number] Univers 00:00:00 00:00:00 Wondiful A Health 350.1.13.10 ity of [place] 4.2.7.2.686 Kilo as Krzysztof?Blea [phone] [address] Office [facility] 2020-10-08 2020-10-08 Telephone [facility] 1.2.840.114 [id number] Univers 00:00:00 00:00:00 Wondiful A Health 350.1.13.10 ity of [place] 4.2.7.2.686 Kilo as Krzysztof?Blea [phone] [facility] 044 [facility] Office [facility] 2020-10-06 2020-10-06 Outpatient R JOCE [facility] [id number] Univers 09:00:00 09:00:00 WONDIFUL ity o f [facility] 2020-10-05 2020-10-05 Office [facility] 1..840.114 [id number] Univers 11:08:16 12:09:41 Visit Wondiful A Health 350.1.13.10 ity of [place] 4.2.7.2.686 Kilo as Krzysztof?Blea [phone] [address] Office [facility] 2020-10-05 2020-10-05 [facility] [id number] Univers 11:15:00 11:15:00 WONDIFUL ity o f [facility] 2020-09-15 2020-09-15 [facility] [id number] Univers 14:30:00 14:30:00 WONDIFUL ity o [facility] 2020-08-06 2020-08-06 Outpatient R BETO [facility] [id number] Univers 00:00:00 00:00:00 QIASEVERO ity o [facility] 2020-07-21 2020-07-21 Patient Beto, [facility] 1..840.114 [id number] Univers 00:00:00 00:00:00 Secure Msg Daniel [place] 350.1.13.10 ity of [place].2.7.2.[place] [phone] Tx adolphcleopatra [facility] 059 [facility] 2020-07-20 2020-07-20 Systems Programmer Analyst Lab, Adc Fam Pob I [facility] 1.2. 840.114 [id number] Univers 10:43:24 11:03:24 Visit Daniel [facility] 350.1.13.10 ity of [place] 4.2.7.2.686 Kilo as Professio [phone] [address] 2020-07-20 2020-07-20 Office [facility] 1.2.840.114 [id number] Univers 09:55:53 10:27:33 Visit Daniel Albrecht 350.1.13.10 ity of [place].2.7.2.[place] [phone] [address] 2020-07-20 2020-07-20 Outpatient R BETO [facility] [id number] Univers 10:00:00 10:00:00 DANIEL collins o f [facility] 2020-06-02 2020-06-02 Telephone [facility] 1.2.840.114 [id number] Univers 00:00:00 00:00:00 Wondiful A [facility] 350.1.13.10 ity of [place] 4.2.7.2.686 Kilo as Professio [phone] [address] 2020-06-01 2020-06-01 Refill [facility] 1.2.840.114 [id number] Univers 00:00:00 00:00:00 Daniel Albrecht 350.1.13.10 ity of [place] 4.2.7.2.[place] [phone] [address] 2020-05-18 2020-05-18 Orders Doctor LILLIANA 1.2.840.114 [id number] Univers 00:00:00 00:00:00 Only Unassigned, MACKENZIE 350.1.13.10 ity of [place] [facility] 4.2.7.2.686 Kilo as [phone] [address] 2020-04-29 2020-04-29 Telephone [facility] 1.2.966.805 [id number] 00:00:00 00:00:00 Daniel Albrecht 350.1.13.10 [place] 4.2.7.2.686 Professio [phone] [address] 2020-04-29 2020-04-29 Refill [facility] 1.2.840.114 [id number] 00:00:00 00:00:00 Daniel [place] 350.1.13.10 [place] 4.2.7.2.686 Professio [phone] [address] 2020-04-29 2020-04-29 Telephone [facility] 1.2.106.622 [id number] Univers 00:00:00 00:00:00 Qiangchevy [place] 350.1.13.10 ity of [place]2.[place].2.[place] [phone] [address] 2020-04-29 2020-04-29 Refill [facility] 1.2.840.114 [id number] 35 [facility] 00:00:00 00:00:00 Qiangchevy [place] 350.1.13.10 ity of [place].2.7.2.[place] [phone] [address] 2020-04-25 2020-04-25 Urgent Provider, [facility] 1.2.102.812 [id number] 10:12:47 10:32:47 Care [facility] 350.1.13.10 Care [place] 4.2.7.2.686 Professio [phone] [place] [address] Office [facility] 2020-04-25 2020-04-25 Urgent Provider, [facility] 1.2.840.114 [id number] [facility] 10:12:47 10:32:47 Care Mine No Health 350.1.13.10 ity of [place] 4.2.7.2.686 Kilo as Professio [phone] [address] Office [facility] 2020-04-25 2020-04-25 Outpatient R ONEAL [facility] [id number] Univers 10:20:00 10:20:00 MINE mitchell [facility] 2020-04-15 2020-04-15 [facility] 1.2.840.114 [id number] 00:00:00 00:00:00 [facility] 350.1.13.10 [place] 4.2.7.2.686 Professio [phone] [place] [address] Office [facility] 2020-04-15 2020-04-15 Telephone Luna [facility] 1.2.840.114 [id number] Univers 00:00:00 00:00:00 [facility] 350.1.13.10 [facility] [place] 4.2.7.2.686 [place] as Professio [phone] [address] Office [facility] 2020-03-07 2020-03-07 [facility] 1.2.840.114 [id number] 00:00:00 00:00:00 Outreach Ethan PRIMARY 350.1.13.10 [facility] 4.2.7.2.686 PAVILLION [phone] [facility] 2020-03-07 2020-03-07 [facility] 1.2.840.114 [id number] Univers 00:00:00 00:00:00 Outreach Ethan PRIMARY 350.1.13.10 i ty of [facility] 4.2.7.2.686 [place] [phone] [address] 2020-01-16 2020-01-16 Outpatient R JOCE [facility] [id number] [facility] 16:30:00 16:30:00 WONDIFUL ity o f [facility] 2020-01-16 2020-01-16 [facility]medici [facility] 1.2.840.114 [id number] 16:09:25 16:24:25 ne Visit [facility] 350.1.13.10 [place] 4.2.7.2.686 Professio [phone] [place] [address] Office [facility] 2020-01-16 2020-01-16 [facility]ici [facility] 1.2.840.114 [id number] [facility] 16:09:25 16:24:25 ne Visit [facility] 350.1.13.10 [facility] [place] 4.2.7.2.686 [place] as Professio [phone] [address] Office [facility] 2020-01-12 2020-01-12 Orders Doctor TIJERINA 1.2.840.114 [id number] 00:00:00 00:00:00 Only Unassigned, MACKENZIE 350.1.13.10 [facility] 4.2.7.2.686 [phone] 2020-01-12 2020-01-12 Orders Doctor LILLIANA 1.2.840.114 [id number] Univers 00:00:00 00:00:00 Only Unassigned, MACKENZIE 350.1.13.10 ity of [facility] 4.2.7.2.686 Kilo as [phone] [address] 2019-12-16 2019-12-16 Case Joce [facility] 1.2.840.114 [id number] 00:00:00 00:00:00 Management [facility] 350.1.13.10 [place] 4.2.7.2.686 Professio [phone] [place] [address] Office [facility] 2019-12-16 2019-12-16 Case Joce [facility] 1.2.840.114 [id number] Univers 00:00:00 00:00:00 Management Antwandiful A Health 350.1.13.10 [facility] [place] 4.2.7.2.686 [place] as Professio [phone] [place] dical [address] [facility] 2019-12-12 2019-12-12 Systems Programmer Analyst 1, Ad[facility] Lab [facility] 1.2.840.114 [id number] 09:36:54 09:51:54 Visit [place] 350.1.13.10 [place] 4.2.7.2.686 [place] [phone] [facility] 2019-12-12 2019-12-12 Systems Programmer Analyst 1, Adc Lab [facility] 1.2.840.114 [id number] [facility] 09:36:54 09:51:54 Visit Antwan Hobsonyasminginger [place] 350.1.13. 10 ity of [place] 4.2.7.2.686 [facility] [phone] [address] 2019-12-12 2019-12-12 Outpatient R [facility] [id number] Univers 08:30:00 08:30:00 ity of [facility] 2019-12-12 2019-12-12 Telephone Joce [facility] 1.2.840.114 [id number] 00:00:00 00:00:00 [facility] 350.1.13.10 [place] 4.2.7.2.686 Professio [phone] [place] [address] [facility] 2019-12-12 2019-12-12 [place] Joce ILDELIA 1.2.840.114 [id number] Univers 00:00:00 00:00:00 [facility] 350.1.13.10 ity of [place] 4.2.7.2.686 [place] as Professio [phone] [address] Office [facility] 2019-12-05 2019-12-05 Orders Doctor LILLIANA 1.2.840.114 [id number] 00:00:00 00:00:00 Only Unassigned, MACKENZIE 350.1.13.10 [place] [facility] 4.2.7.2.686 [phone] 009 2019-12-05 2019-12-05 Orders Doctor LILLIANA 1.2.840.114 [id number] [facility] 00:00:00 00:00:00 Only Unassigned, MACKENZIE 350.1.13.10 ity of [place] [facility] 4.2.7.2.686 Kilo as [phone] [address] 2019-11-14 2019-11-14 [facility] 1.2.840.114 [id number] 00:00:00 00:00:00 Management [facility] 350.1.13.10 [place] 4.2.7.2.686 Professio [phone] [place] [address] Office [facility] 2019-11-14 2019-11-14 [facility] 1.2.840.114 [id number] Univers 00:00:00 00:00:00 Management [facility] 350.1.13.10 ity of [place] 4.2.7.2.686 [place] Professio [phone] [address] Office [facility] 2019-11-13 2019-11-13 Beto Hobson [facility] 1.2.840.114 [id number] 00:00:00 00:00:00 Management [facility] 350.1.13.10 [place] 4.2.7.2.686 Professio [phone] [place] [address] [facility] 2019-11-13 2019-11-13 Case Joce [facility] 1.2.840.114 [id number] Univers 00:00:00 00:00:00 Management [facility] 350.1.13.10 [place]y of [place] 4.2.7.2.686 [place] as Professio [phone] [address] Office Building [facility] 2019-11-08 2019-11-08 Systems Programmer Analyst Lab, Adc Fam Pob I [facility] 1.2. 840.114 [id number] [facility] 11:16:17 11:26:17 Visit Antwan Hobsonrayna [facility] 350.1.13.1 0 ity of [place] 4.2.7.2.686 [place] as Professio [phone] [address] Office [facility] 2019-11-08 2019-11-08 Office Joce [facility] 1.2.840.114 [id number] 09:44:58 11:00:23 Visit [facility] 350.1.13.10 [place] 4.2.7.2.686 Professio [phone] [place] [address] [facility] 2019-11-08 2019-11-08 Office Joce [facility] 1.2.840.114 [id number] [facility] 09:44:58 11:00:23 Visit [facility] 350.1.13.10 ity of [place] 4.2.7.2.686 [place] as Professio [phone] [address] Office [facility] 2019-11-08 2019-11-08 Outpatient R JOCE [facility] [id number] [facility] 08:45:00 08:45:00 WONDIFUL ity o f [facility] 2019-09-02 2019-11-04 Telemedici Joce [facility] 1.2.840.114 [id number] [facility] 09:09:51 09:25:19 ne Visit Wondiful A [place] 350.1.13.10 ity of [place] 4.2.7.2.[place] [phone] [address] 2019-11-04 2019-11-04 Systems Programmer Analyst Lab, Adc Fam Pob I [facility] 1.2. 840.114 [id number] Univers 09:02:55 09:12:55 Visit Joce [facility] 350.1.13.1 0 ity of [place] 4.2.7.2.686 [place] as Professio [phone] [address] 2019-11-04 2019-11-04 Outpatient R JOCE [facility] [id number] Univers 09:00:00 09:00:00 WONDIFUL ity o f [facility] 2019-10-30 2019-10-30 [facility] 1.2.840.114 [id number] Univers 00:00:00 00:00:00 [facility] 350.1.13.10 ity of [place] 4.2.7.2.686 [place] Professio [phone] [address] 2019-10-25 2019-10-25 [facility] 1.2.840.114 [id number] Univers 00:00:00 00:00:00 [facility] 350.1.13.10 ity of [place] 4.2.7.2.686 [place] Professio [phone] [address] 2019-10-25 2019-10-25 Refshruthi [facility] 1.2.840.114 [id number] Univers 00:00:00 00:00:00 [facility] 350.1.13.10 ity of [place] 4.2.7.2.686 [place] Professio [phone] [address] 2019-10-07 2019-10-07 Orders Doctor LILLIANA 1.2.840.114 [id number] Univers 00:00:00 00:00:00 Only Unassigned, MACKENZIE 350.1.13.10 ity of [place] [facility] 4.2.7.2.686 Kilo as [phone] [address] 2019-09-30 2019-09-30 Office [facility] 1.2.840.114 [id number] Univers 09:15:37 09:55:50 Visit Antoniverónicachevy Kimberly 350.1.13.10 ity of [place] 4.2.7.2.[place] [phone] [place] dical nal 059 [facility] 2019-09-30 2019-09-30 Outpatient R BETO, [facility] [id number] Univers 09:40:00 09:40:00 QIANGJUN ity o f [facility] 2019-09-02 2019-09-02 Outpatient R JOCE, [facility] [id number] Univers 08:45:00 08:45:00 WONDIFUL ity o f [facility] 2019-08-30 2019-08-30 Telephone LILLIANA Donald 1..[id number] [id number] Univers 00:00:00 00:00:00 Chary MANN 350.1.13.10 i ty [facility] 4.2.7.2.686 [place] as [phone] [address] 2019-08-29 2019-08-29 Laboratory Lab, [facility] Pob I [facility] 1.. 840.114 [id number] Univers 11:32:55 11:52:55 Only Lyla Amaya [facility] 350.1.13.10 ity of [place] 4.2.7.2.686 [place] Professio [phone] [facility] [address] Office [facility] 2019-08-29 2019-08-29 Outpatient R LYLA, [facility] [id number] Univers 11:40:00 11:40:00 AMAYA ity of [facility] 2019-08-29 2019-08-29 Urgent Lab, [facility] 1..840.114 [id number] 11:00:00 11:20:00 Care Fam Pob I Health 350.1.13.10 [place] 4.2.7.2.686 Professio [phone] nal [facility] Office [facility] 2019-08-29 2019-08-29 Urgent Lab, [facility] Fam Pob I [facility] 1.2.840 .114 [id number] Univers 11:00:00 11:20:00 Care Lyla [facility] 350.1.13.10 ity of [place] 4.2.7.2.686 [place] as Professio [phone] [address] 2019-08-29 2019-08-29 Outpatient R [facility] [id number] Univers 11:00:00 11:00:00 ity of [facility] 2019-08-29 2019-08-29 Letter Doctor LILLIANA 1.2.840.114 [id number] Univers 00:00:00 00:00:00 (Out) Unassigned, MACKENZIE 350.1.13.10 ity of [place] 4.2.7.2.686 Kilo as [phone] [address] 2019-08-20 2019-08-20 [facility] 1.2.840.114 [id number] Univers 00:00:00 00:00:00 [facility] 350.1.13.10 [place]y of [place] 4.2.7.2.686 [place] as Professio [phone] [address] 2019-07-30 2019-07-30 Office Kedar [facility] Encounter / Legacy 00:00:00 00:00:00 Visit Renata [id number] Com natalee [id number] [facility] 2019-07-11 2019-07-11 [facility] [id number] Univers 09:15:00 09:15:00 WONDIFUL ity o f [facility] 2019-07-03 2019-07-03 Telephone [facility] 1.2.840.114 [id number] Univers 00:00:00 00:00:00 Wondiful A [place] 350.1.13.10 ity of [place] [phone] [address] 2019-07-01 2019-07-01 Office Mirella Villalobos [facility] Encounter/ Legacy 00:00:00 00:00:00 Visit Shy Miller [id number] [facility] 688223 Health 2019-07-01 2019-07-01 Office ADRIAN Villalobos [facility] Encounter/ Legacy 00:00:00 00:00:00 Visit Mirella [id number] [facility] natalee De La Cruz [id number] [facility] 2019-07-01 2019-07-01 Telephone Joce [facility] 1..840.114 [id number] Univers 00:00:00 00:00:00 [facility] 350.1.13.10 [place] of [place] 4.2.7.2.686 [place] Professio [phone] [address] 2019-07-01 2019-07-01 Office Wilfredo, [facility] Encounter/ Legacy 00:00:00 00:00:00 Visit Mirella [id number] [facility] natalee De La Cruz [id number] [facility] 2019-06-25 2019-06-25 Office Wilfredo, [facility] Encounter/ Legacy 00:00:00 00:00:00 Visit Mirella [id number] [facility] natalee De La [place] [id number] [facility] 2019-06-25 2019-06-25 Office Wilfredo, [facility] Encounter/ Legacy 00:00:00 00:00:00 Visit Mirella [id number] [facility] natalee De La Cruz [id number] [facility] 2019-06-25 2019-06-25 Office Wilfredo, [facility] Encounter/ Legacy 00:00:00 00:00:00 Visit Mirella [id number] [facility] natalee De La [place] [id number] [facility] 2019-06-25 2019-06-25 Office Wilfredo, Mirella De La Cruz [facility] Encounter/ Legacy 00:00:00 00:00:00 Visit Renata Thacker [id number] [address] [place] [address] 757110 [facility] 2019-05-14 2019-05-14 [facility] 1.2.840.114 [id number] Univers 00:00:00 00:00:00 [facility] 350.1.13.10 [place]y of [place] 4.2.7.2.686 [place] as Professio [phone] [address] 2019-04-05 2019-04-05 Outpatient R JOCE [facility] [id number] Univers 13:15:00 14:32:32 WONDIFUL ity o f [facility] 2019-04-05 2019-04-05 [facility] 1.2.840.114 [id number] Univers 13:11:19 14:32:32 Visit Austin A [facility] 350.1.13.10 ity of [place] 4.2.7.2.686 [place] as Professio [phone] Tx dical nal [address] Office [facility] 2019-04-04 2019-04-04 Telephone [facility] 1.2.664.023 [id number] Univers 00:00:00 00:00:00 Daniel Albrecht 350.1.13.10 ity of [place].2.[place] [phone] [place] dical nal 059 [facility] 2019-04-01 2019-04-01 Systems Programmer Analyst 2, Adc Lab [facility] 1.2.840.114 [id number] Univers 11:11:10 11:26:10 Visit Daniel Pérez 350.1.13.10 ity of [place] [phone] [facility] 353 [facility] 2019-04-01 2019-04-01 [facility] [id number] 370 [facility] 11:15:00 11:15:00 DANIEL collins o f [facility] 2019-04-01 2019-04-01 Office [facility] 1.2.840.114 [id number] Univers 09:49:17 11:01:30 Visit Daniel Albrecht 350.1.13.10 ity of [place] 4.2.7.2.[place] [phone] [facility] 059 [facility] 2019-04-01 2019-04-01 Orders Doctor LILLIANA 1.2.840.114 [id number] Univers 00:00:00 00:00:00 Only Unassigned, MACKENZIE 350.1.13.10 ity of [place] [facility] 4.2.7.2.686 Kilo as [phone] [address] 2018-08-03 2018-08-03 Outpatient R JOCE [facility] [id number] Univers 12:45:00 12:45:00 [place] noey o f [facility] Results Test Description Test Time Test Comments Results Result Comments Source N-TERMINAL PRO-BNP 2022-09-08 21:21:23 Test Item Value Reference Range Interpretation Comme nts NT-proBNP (test code = 92514-7) 969 pg/mL <=125 ALEXIS (test code = ALEXIS) Result Indeterminate-Consider causes of NT-proBNP elevation other than Heart failure such as acute coronary syndrome, pulmonary embolism, pulmonary hypertension, sepsis, stroke, and renal dysfunction. Lab Interpretation (test code = 22877-6) Abnormal [facility]. METABOLIC PANEL (31963)2022-09-08 21:14:26 Test Item Value Reference Range Interpretation Comments NA (test code = 139 mmol/L 135-145 8380100153) K (test code = 3.6 mmol/L 3.5-5.0 6148587335) CL (test code = 101 mmol/L 98-108 3696819863) CO2 TOTAL (test code = 31 mmol/L 23-31 3166560277) AGAP (test code = 7 2-16 5207072784) BUN (test code = 15 mg/dL 7-23 6298820023) GLUCOSE (test code = 149 mg/dL 70-110 H 3434268685) CREATININE (test code = 0.50 mg/dL 0.50-1.04 3041129536) TOTAL BILI (test code = 0.6 mg/dL 0.1-1.2 6485835650) CALCIUM (test code = 8.7 mg/dL 8.6-10.6 2443334294) T PROTEIN (test code = 6.4 g/dL 6.3-8.2 5335379437) ALBUMIN (test code = 3.7 g/dL 3.5-5.0 5248181025) ALK PHOS (test code = 90 U/L 34-122 7744712297) ALTv (test code = 19 U/L 5-35 1742-6) AST(SGOT) (test code = 27 U/L 13-40 8306324184) eGFR (test code = 117.0 mL/min/1.73m2 2529020949) ALEXIS (test code = ALEXIS) Association of [...] tests). Lab Interpretation Abnormal (test code = 98735-6) [facility] WITH [id number] 18:51:11 Test Item Value Reference Range Interpretation Comments WBC (test code = 7.51 See_Comment [Automated 0946-2) message] The sy stem which generated this result transmitted reference range : 4.30 - 11.10 10*3/?L. The reference range was not used to interpret this result as normal/abnormal . RBC (test code = 4.59 See_Comment [Automated 051-8) message] The sy stem which generated this [...] (test code = 57.1 fL 39.0-49.9 H 96945-9) RDW-CV (test code = 20.9 % 12.0-15.5 H 788-0) PLT (test code = 313 See_Comment [Automated 777-3) message] The sy stem which generated this result transmitted reference range : 166 - 358 10*3/ ?L. The reference r nanci was not used to interpret this result as normal/abnormal . MPV (test code = 10.3 fL 9.5-12.9 12389-2) NRBC/100 WBC (test 0.0 See_Comment [Automat ed code = 9964170672) message] The system which generated this result transmitted reference range : 0.0 - 10.0 /100 WBCs. The refer ence range was not u sed to interpret th is result as normal/abnormal . NRBC x10^3 (test code See_Comment [Auto mated = 0885508618) message] The s ystem which generated this result transmitted reference range : 10*3/?L. The reference range was not used to interpret this result as normal/abnormal . GRAN MAT (NEUT) % 63.2 % (test code = 770-8) IMM GRAN % (test code 0.10 % = 9885003138) LYMPH % (test code = 26.6 % 736-9) MONO % (test code = 7.6 % 5905-5) EOS % (test code = 2.1 % 713-8) BASO % (test code = 0.4 % 706-2) GRAN MAT x10^3(ANC) 4.74 10*3/uL 1.88-7.09 (test code = 4363841185) IMM GRAN x10^3 (test 0.00-0.06 code = 4680701982) LYMPH x10^3 (test code 2.00 10*3/uL 1.32-3.29 = 731-0) MONO x10^3 (test code 0.57 10*3/uL 0.33-0.92 = 742-7) EOS x10^3 (test code = 0.16 10*3/uL 0.03-0.39 711-2) BASO x10^3 (test code 0.03 10*3/uL 0.01-0.07 = 704-7) Lab Interpretation Abnormal (test code = 38600-1) [facility] WITH [id number] 18:51:11 Test Item Value Reference Range Interpretation [...] (test code = 57.1 fL 39.0-49.9 H 84174-9) RDW-CV (test code = 20.9 % 12.0-15.5 H 788-0) PLT (test code = 313 See_Comment [Automated 777-3) message] The sy stem which generated this result transmitted reference range : 166 - 358 10*3/ ?L. The reference r nanci was not used to interpret this result as normal/abnormal . MPV (test code = 10.3 fL 9.5-12.9 66469-3) NRBC/100 WBC (test 0.0 See_Comment [Automat ed code = 4004567001) message] The system which generated this result transmitted reference range : 0.0 - 10.0 /100 WBCs. The refer ence range was not u sed to interpret th is result as normal/abnormal . NRBC x10^3 (test code See_Comment [Auto mated = 5874143266) message] The s ystem which generated this result transmitted reference range : 10*3/?L. The reference range was not used to interpret this result as normal/abnormal . GRAN MAT (NEUT) % 63.2 % (test code = 770-8) IMM GRAN % (test code 0.10 % = 7973038763) LYMPH % (test code = 26.6 % 736-9) MONO % (test code = 7.6 % 5905-5) EOS % (test code = 2.1 % 713-8) BASO % (test code = 0.4 % 706-2) GRAN MAT x10^3(ANC) 4.74 10*3/uL 1.88-7.09 (test code = 3800467523) IMM GRAN x10^3 (test 0.00-0.06 code = 8957129615) LYMPH x10^3 (test code 2.00 10*3/uL 1.32-3.29 = 731-0) MONO x10^3 (test code 0.57 10*3/uL 0.33-0.92 = 742-7) EOS x10^3 (test code = 0.16 10*3/uL 0.03-0.39 711-2) BASO x10^3 (test code 0.03 10*3/uL 0.01-0.07 = 704-7) Lab Interpretation Abnormal (test code = 15247-5) [id number] 15:02:10 Test Item Value Reference Range Interpretation Comments NT-proBNP (test code = 782 pg/mL <=450 H 4353192806) ALEXIS (test code = ALEXIS) Biotin has been reported to cause a negative bias, interpret results relative to patient's use of biotin. Lab Interpretation (test Abnormal code = 37105-4) [facility] METABOLIC PANEL (NA, K, CL, CO2, GLUCOSE, BUN, CREATININE, CA)2022-06-11 14:53:52 Test Item Value Reference Range Interpretation Comments NA (test code = 139 mmol/L 135-145 2503755186) K (test code = 4.5 mmol/L 3.5-5.0 6181597054) CL (test code = 103 mmol/L 98-108 4709430779) CO2 TOTAL (test code = 30 mmol/L 23-31 7700370987) AGAP (test code = 6 2-16 1359469136) BUN (test code = 17 mg/dL 7-23 7005154714) GLUCOSE (test code = 134 mg/dL 70-110 H 9924842699) CREATININE (test code = 0.57 mg/dL 0.50-1.04 5317586360) CALCIUM (test code = 9.0 mg/dL 8.6-10.6 3408222118) eGFR (test code = 100.6 mL/min/1.73m2 6488024301) ALEXIS (test code = ALEXIS) Association of [...] tests). Lab Interpretation Abnormal (test code = 04222-8) [facility] [id number] 11:00:26 Test Item Value Reference Range Interpretation Comments POC-Glucose Meter (test 139 mg/dL 70-110 H : TE STED AT [facility] code = 1538) [address] [place] [address], [facility] 30: Pizzamaker/Techni socrates ID = [id number] for Amanda Galvana Lab Interpretation (test Abnormal code = 03786-2) [facility] [id number] 11:00:26 Test Item Value Reference Range Interpretation Comments POC-Glucose Meter (test 139 mg/dL 70-110 H : TE STED AT [facility] code = 1538) [address] [place] [address], [facility] 30: Pizzamaker/Techni socrates ID = [id number] for Anabel Galvanrina Lab Interpretation (test Abnormal code = 09682-1) [facility]-Glucose [id number] 11:00:26 Test Item Value Reference Range Interpretation Comments POC-Glucose Meter (test 139 mg/dL 70-110 H : TE STED AT [facility] code = 1538) [address] [place] [address], [facility] 30: Pizzamaker/Techni socrates ID = [id number] for Anabel Galvanrina Lab Interpretation (test Abnormal code = 43437-9) [facility]-GLUCOSE [id number] 11:00:26 Test Item Value Reference Range Interpretation Comments POC-GLUCOSE METER 139 mg/dL 70-110 H : TESTED A T [facility] 6720 (BEAKER) (test code = [facility], 1538) [address]: Pizzamaker/Techni socrates ID = [id number] for [place], Sridevi POCT-GLUCOSE [id number] 08:28:34 Test Item Value Reference Range Interpretation Comments POC-GLUCOSE METER 147 mg/dL 70-110 H : TESTED A T [facility] 6720 (BEAKER) (test code = [facility] Braulio [facility], 1538) [address]: Pizzamaker/Techni socrates ID = [id number] for [place], Sridevi BASIC METABOLIC [id number] 05:30:33 Test Item Value Reference Range Interpretation [...] not appl icable for dialysis patien ts Pizzamaker ID - TERRELL [id number] 05:30:33 Test Item Value Reference Range Interpretation Comments MAGNESIUM (BEAKER) (test code = 2.1 mg/dL 1.6-2.6 627) Pizzamaker ID - TERRELL GCBC W/PLT COUNT & AUTO [id number] 05:08:16 Test Item Value Reference Range Interpretation [...] PERCENT (BEAKER) (test code = 2801) POCT-GLUCOSE [id number] 22:18:08 Test Item Value Reference Range Interpretation Comments POC-GLUCOSE METER 150 mg/dL 70-110 H : Notified RN/MD: (AJIT) (test code = TESTED AT [facility] 6720 8560) [facility], [address]: Pizzamaker/Techni socrates ID = [id number] for AVINASH SNELLHERNÁN GROVER POCT-GLUCOSE [id number] 18:35:11 Test Item Value Reference Range Interpretation Comments POC-GLUCOSE METER 153 mg/dL 70-110 H : TESTED A T [facility] 6720 (BEAKER) (test code [facility], = 1538) [address]: Pizzamaker/Techni socrates ID = [id number] for NEGRITO PINO - BRODERICK MARROQUIN POCT-GLUCOSE [id number] 12:18:53 Test Item Value Reference Range Interpretation Comments POC-GLUCOSE METER 149 mg/dL 70-110 H : TESTED A T [facility] 6720 (BEAKER) (test code [facility], = 1538) [address]: Pizzamaker/Techni socrates ID = [id number] for LATT ODETTE - BRODERICK MARROQUIN POCT-GLUCOSE [id number] 09:02:22 Test Item Value Reference Range Interpretation Comments POC-GLUCOSE METER 138 mg/dL 70-110 H : TESTED A T [facility] 6720 (BEAKER) (test code [facility], = 1538) [address]: Pizzamaker/Techni socrates ID = [id number] for LATT ODETTE - BRODERICK MARROQUIN BASIC METABOLIC [id number] 06:05:05 Test Item Value Reference Range Interpretation [...] is not as accur ate as Creatinine Odminique cassandra in predicting glom erular filtration rate . Estimated GFR is not appl icable for dialysis patien ts Pizzamaker ID - [id number] 06:05:05 Test Item Value Reference Range Interpretation Comments MAGNESIUM (BEAKER) (test code = 2.1 mg/dL 1.6-2.6 627) Pizzamaker ID - [id number] 06:05:05 Test Item Value Reference Range Interpretation Comments PHOSPHORUS (BEAKER) (test code = 4.8 mg/dL 2.3-4.7 H 604) Pizzamaker ID - MARCOCBC W/PLT COUNT & AUTO [id number] 05:46:55 Test Item Value Reference Range Interpretation [...] PERCENT (BEAKER) (test code = 2801) POCT-GLUCOSE [id number] 20:25:43 Test Item Value Reference Range Interpretation Comments POC-GLUCOSE METER 153 mg/dL 70-110 H : TESTED A T [facility] 6720 (BEAKER) (test code = [facility], 153) [address]: Pizzamaker/Techni socrates ID = [id number] for Laurita harrell Felicia POCT-GLUCOSE [id number] 18:10:56 Test Item Value Reference Range Interpretation Comments POC-GLUCOSE METER 162 mg/dL 70-110 H : TESTED A T [facility] 6720 (BEAKER) (test code [facility], = 1538) 55373: Pizzamaker/Techni socrates ID = [id number] for LATT IMORE - CARA, BRODERICK POCT-GLUCOSE [id number] 13:16:14 Test Item Value Reference Range Interpretation Comments POC-GLUCOSE METER 133 mg/dL 70-110 H : TESTED A T [facility] 6720 (BEAKER) (test code [facility], = 1538) 16179: Pizzamaker/Techni socrates ID = [id number] for LATT IMORE - CARA, BRODERICK POCT-GLUCOSE [id number] 08:50:00 Test Item Value Reference Range Interpretation Comments POC-GLUCOSE METER 122 mg/dL 70-110 H : TESTED A T [facility] 6720 (BEAKER) (test code [facility], = 1538) 20092: Pizzamaker/Techni socrates ID = [id number] for BRODERICK VEE CBC W/PLT COUNT & AUTO [id number] 05:50:43 Test Item Value Reference Range Interpretation [...] 0.00-1.00 PERCENT (BEAKER) (test code = 2801) [id number] 05:40:36 Test Item Value Reference Range Interpretation Comments PHOSPHORUS (BEAKER) 3.8 mg/dL 2.3-4.7 Specimen moderately (test code = 604) hemolyzed Pizzamaker ID - AAHAMIDBASIC METABOLIC [id number] 05:40:36 Test Item Value Reference Range Interpretation [...] G3b Moderately to s everely 30-44 G4 Sever ly decreased 15-29 G5 Kidney failure <15Repo rted eGFR is based on the CKD-EPI 2021 equation t hat does not use a race coefficientEsti mated GFR is not as accur ate as Creatinine Dominique cassandra in predicting glom erular filtration rate . Estimated GFR is not appl icable for dialysis patien ts Pizzamaker ID - [id number] 05:40:35 Test Item Value Reference Range Interpretation Comments MAGNESIUM (BEAKER) 2.2 mg/dL 1.6-2.6 Specimen moderately (test code = 627) hemolyzed Pizzamaker ID - AAHAMIDPOCT-GLUCOSE [id number] 00:20:31 Test Item Value Reference Range Interpretation Comments POC-GLUCOSE METER 136 mg/dL 70-110 H : TESTED A T [facility] 6720 (BEAKER) (test code = [facility], 1538) [address]: Pizzamaker/Techni socrates ID = [id number] for Zev akers (contract)Francisco POCT-GLUCOSE [id number] 16:54:24 Test Item Value Reference Range Interpretation Comments POC-GLUCOSE METER 160 mg/dL 70-110 H : TESTED A T [facility] 6720 (BEAKER) (test code = [facility], 1538) 587[address]: Pizzamaker/Techni socrates ID = [id number] for Co Amanda mccullougha POCT-GLUCOSE [id number] 15:00:16 Test Item Value Reference Range Interpretation Comments POC-GLUCOSE METER 169 mg/dL 70-110 H : TESTED A T [facility] 6720 (BEAKER) (test code = [facility], 1538) 48667: Pizzamaker/Techni socrates ID = [id number] for Iam macias (contract), Roberto HEMOGLOBIN [id number] 08:42:39 Test Item Value Reference Range Interpretation [...] 5.7- 6.4% indicates increased risk for diabetes (prediabetes)."Pizzamaker ID - ADM [id number] 04:27:27 Test Item Value Reference Range Interpretation Comments MAGNESIUM (BEAKER) 2.1 mg/dL 1.6-2.6 Specimen slightly (test code = 627) hemolyzed Pizzamaker ID - [id number] 04:27:27 Test Item Value Reference Range Interpretation Comments PHOSPHORUS (BEAKER) 3.0 mg/dL 2.3-4.7 Specimen slightly (test code = 604) hemolyzed Pizzamaker ID - MARCOBASIC METABOLIC [id number] 04:27:27 Test Item Value Reference Range Interpretation [...] not appl icable for dialysis patien ts Pizzamaker ID - MARCOCBC W/PLT COUNT & AUTO [id number] 04:02:29 Test Item Value Reference Range Interpretation [...] PERCENT (BEAKER) (test code = 2801) POCT-GLUCOSE [id number] 00:54:42 Test Item Value Reference Range Interpretation Comments POC-GLUCOSE METER 196 mg/dL 70-110 H : TESTED A T [facility] 6720 (BEAKER) (test code = [facility] [place], 153) [address]: Pizzamaker/Techni socrates ID = [id number] for JAY BAILEY HIGH SENSITIVITY TROPONIN [id number] 19:05:12 Test Item Value Reference Range Interpretation Comments HIGH SENSITIVITY TROPONIN I (test 43 pg/ml <=17 H code = 1150926) Pizzamaker ID - BSThe BAND LEADER STAT High Sensitivity Troponin-I results should be used in conjunctionwith other diagnostic information such as ECG, clinical observations and information, and patient symptoms to aid in the diagnosis of TX.POCT-GLUCOSE [id number] 17:15:39 Test Item Value Reference Range Interpretation Comments POC-GLUCOSE METER 267 mg/dL 70-110 H : TESTED A T [facility] 6720 (AJIT) (test code = KAREN Ramsey [facility], 1537) [address]: Pizzamaker/Techni socrates ID = [id number] for Co Sridevi mccullough 2D Echo W/Doppler(CW/PW/Color)2022-05-28 16:04:49Ejection FractionSLEH ECHO HEARTLAB MKCKESSMattel [facility] W/Doppler(CW/PW/Color)2022-05-28 16:04:49Ejection FractionSLEH ECHO HEARTLAB MKJane [facility] W/Doppler(CW/PW/Color) 2022-05-28 16:04:49Ejection FractionSLEH ECHO HEARTLAB MKCKCity of Hope National [facility] CenterPOCT-GLUCOSE [id number] 12:13:16 Test Item Value Reference Range Interpretation Comments POC-GLUCOSE METER 257 mg/dL 70-110 H : Notified RN/MD: (AJIT) (test code = TESTED AT [facility] 6720 1537) ELYSSA [facility], [address]: Pizzamaker/Techni socrates ID = [id number] for LL OETELVINA MAGUIREA TSH/FREE T4 IF [id number] 12:08:26 Test Item Value Reference Range Interpretation Comments THYROID STIMULATING HORMONE 0.911 uIU/mL 0.350-4.940 (AJIT) (test code = 772) Pizzamaker ID - MMHIGH SENSITIVITY TROPONIN [id number] 11:54:08 Test Item Value Reference Range Interpretation Comments HIGH SENSITIVITY TROPONIN I (test 68 pg/ml <=17 H code = 3984135) Pizzamaker ID - MMThe BAND LEADER STAT High Sensitivity Troponin-I results should be used in conjunctionwith other diagnostic information such as ECG, clinical observations and information, and patient symptoms to aid in the diagnosis of TX.CBC W/PLT COUNT & AUTO [id number] 11:19:14 Test Item Value Reference Range Interpretation [...] 0.00-1.00 PERCENT (BEAKER) (test code = 2801) Respiratory Panel [id number] 11:14:11 Test Item Value Reference Range Interpretation Comments Human Metapneumovirus Not detected Not detected, (test code = 59137-8) Equivocal Rhinovirus (test code = Not detected Not detected, 70042-2) Equivocal INFLUENZA A (NO Not detected Not detected, SUBTYPE) (test code = Equivocal 27734-6) Influenza A subtype H1 (test code = 10656-4) Influenza A Subtype H3 (test code = 33797-4) Influenza A Subtype H1-2009 (test code = 06454-7) Influenza B (test code Not detected Not detected, = 06919-8) Equivocal Respiratory Syncytial Not detected Not detected, Virus (test code = Equivocal 48657-0) Parainfluenza Virus 1 Not detected Not detected, (test code = 08093-9) Equivocal Parainfluenza Virus 2 Not detected Not detected, (test code = 36326-0) Equivocal Parainfluenza virus 3 Not detected Not detected, (test code = 30568-6) Equivocal Parainfluenza Virus 4 Not detected Not detected, (test code = 47808-5) Equivocal Adenovirus (test code = Not detected Not detected, 67926-1) Equivocal Coronavirus 229E (test Not detected Not detected, code = 18761-4) Equivocal Coronavirus HKU1 (test Not detected Not detected, code = 46805-2) Equivocal Coronavirus NL63 (test Not detected Not detected, code = 64740-9) Equivocal Coronavirus OC43 (test Not detected Not detected, code = 20075-4) Equivocal Bordetella Pertussis Not detected Not detected, (test code = 04368-8) Equivocal Chlamydophila Not detected Not detected, Pneumoniae (test code = Equivocal 18308-7) Mycoplasma Pneumoniae Not detected Not detected, (test code = 75254-6) Equivocal Severe Acute Not detected Not detected, Idkekdrmxtw-PwX-5 (test Equivocal code = 22587-3) Bordtella Parapertussis Not detected Not detected, (test code = 27838-7) Equivocal ALEXIS (test code = ALEXIS) Other viruses and bacteria not targeted by this PCR panel cannot be excluded; therefore clinical correlation and follow up of serology, culture results, and other molecular studies is required. The results are not intended to be used as the sole means for clinical diagnosis or patient management decisions. This sample was tested at the [facility] Molecular Diagnostics Laboratory using the 66. comArray Respiratory Panel. It is FDA cleared and has been verified and approved by the [facility] Molecular Diagnostics Laboratory for clinical use on nasopharyngeal swab specimens. The performance of the FilmArray RP has not been established in individuals who received influenza vaccine. Recent administration of a nasal influenza vaccine may cause false positive results for Influenza A and/orInfluenza B. [facility] [id number] 11:14:11 Test Item Value Reference Range Interpretation Comments Human Metapneumovirus Not detected Not detected, (test code = 17236-9) Equivocal Rhinovirus (test code = Not detected Not detected, 30690-1) Equivocal INFLUENZA A (NO Not detected Not detected, SUBTYPE) (test code = Equivocal 01460-0) Influenza A subtype H1 (test code = 80231-8) Influenza A Subtype H3 (test code = 44974-4) Influenza A Subtype H1-2009 (test code = 40275-2) Influenza B (test code Not detected Not detected, = 16889-7) Equivocal Respiratory Syncytial Not detected Not detected, Virus (test code = Equivocal 69595-6) Parainfluenza Virus 1 Not detected Not detected, (test code = 91121-3) Equivocal Parainfluenza Virus 2 Not detected Not detected, (test code = 48911-8) Equivocal Parainfluenza virus 3 Not detected Not detected, (test code = 67508-0) Equivocal Parainfluenza Virus 4 Not detected Not detected, (test code = 60575-5) Equivocal Adenovirus (test code = Not detected Not detected, 43829-1) Equivocal Coronavirus 229E (test Not detected Not detected, code = 16892-0) Equivocal Coronavirus HKU1 (test Not detected Not detected, code = 41380-7) Equivocal Coronavirus NL63 (test Not detected Not detected, code = 78028-1) Equivocal Coronavirus OC43 (test Not detected Not detected, code = 22320-9) Equivocal Bordetella Pertussis Not detected Not detected, (test code = 37095-3) Equivocal Chlamydophila Not detected Not detected, Pneumoniae (test code = Equivocal 46221-1) Mycoplasma Pneumoniae Not detected Not detected, (test code = 16339-6) Equivocal Severe Acute Not detected Not detected, Rwfmapxomcu-YwY-3 (test Equivocal code = 90639-8) Bordtella Parapertussis Not detected Not detected, (test code = 80753-1) Equivocal ALEXIS (test code = ALEXIS) Other viruses and bacteria not targeted by this PCR panel cannot be excluded; therefore clinical correlation and follow up of serology, culture results, and other molecular studies is required. The results are not intended to be used as the sole means for clinical diagnosis or patient management decisions. This sample was tested at the [facility] Molecular Diagnostics Laboratory using the [employer] Respiratory Panel. It is FDA cleared and has been verified and approved by the [facility] Molecular Diagnostics Laboratory for clinical use on nasopharyngeal swab specimens. The performance of the FilmArray RP has not been established in individuals who received influenza vaccine. Recent administration of a nasal influenza vaccine may cause false positive results for Influenza A and/orInfluenza B. [facility] [id number] 11:14:11 Test Item Value Reference Range Interpretation Comments Human Metapneumovirus Not detected Not detected, (test code = 61853-2) Equivocal Rhinovirus (test code = Not detected Not detected, 96906-6) Equivocal INFLUENZA A (NO Not detected Not detected, SUBTYPE) (test code = Equivocal 81358-3) Influenza A subtype H1 (test code = 66430-2) Influenza A Subtype H3 (test code = 06978-0) Influenza A Subtype H1-2009 (test code = 58848-4) Influenza B (test code Not detected Not detected, = 61487-1) Equivocal Respiratory Syncytial Not detected Not detected, Virus (test code = Equivocal 45107-4) Parainfluenza Virus 1 Not detected Not detected, (test code = 49914-9) Equivocal Parainfluenza Virus 2 Not detected Not detected, (test code = 48750-4) Equivocal Parainfluenza virus 3 Not detected Not detected, (test code = 09686-2) Equivocal Parainfluenza Virus 4 Not detected Not detected, (test code = 85551-9) Equivocal Adenovirus (test code = Not detected Not detected, 75122-8) Equivocal Coronavirus 229E (test Not detected Not detected, code = 95078-2) Equivocal Coronavirus HKU1 (test Not detected Not detected, code = 14558-6) Equivocal Coronavirus NL63 (test Not detected Not detected, code = 11797-3) Equivocal Coronavirus OC43 (test Not detected Not detected, code = 58085-3) Equivocal Bordetella Pertussis Not detected Not detected, (test code = 15108-6) Equivocal Chlamydophila Not detected Not detected, Pneumoniae (test code = Equivocal 45643-6) Mycoplasma Pneumoniae Not detected Not detected, (test code = 73300-6) Equivocal Severe Acute Not detected Not detected, Fbdpjlqldyh-MyV-7 (test Equivocal code = 30843-3) Bordtella Parapertussis Not detected Not detected, (test code = 28429-0) Equivocal ALEXIS (test code = ALEXIS) Other viruses and bacteria not targeted by this PCR panel cannot be excluded; therefore clinical correlation and follow up of serology, culture results, and other molecular studies is required. The results are not intended to be used as the sole means for clinical diagnosis or patient management decisions. This sample was tested at the [facility] Molecular Diagnostics Laboratory using the 66. comArray Respiratory Panel. It is FDA cleared and has been verified and approved by the [facility] Molecular Diagnostics Laboratory for clinical use on nasopharyngeal swab specimens. The performance of the FilmArray RP has not been established in individuals who received influenza vaccine. Recent administration of a nasal influenza vaccine may cause false positive results for Influenza A and/orInfluenza B. [facility] CenterRESPIRATORY [id number] 11:14:11 Test Item Value Reference Range Interpretation [...] SEVERE ACUTE RESPIRATORY Not detected Not detected, UBOPYLHQ-HHWLYKUZQNT-3 Equivocal (test code = 1113021) BORDETELLA PARAPERTUSSIS Not detected Not detected, (BKR) (test code = 2996000) Equivocal Other viruses and bacteria not targeted by this PCR panel cannot be excluded; therefore clinical correlation and follow up of serology, culture results, and other molecular studies is required. The results are not intended to be used as the sole means for clinical diagnosis or patient management decisions. This sample was tested at the [facility] Molecular Diagnostics Laboratory using the 66. comArray Respiratory Panel. It is FDA cleared and has been verified and approved by the [facility] Molecular Diagnostics Laboratory for clinical use on nasopharyngeal swab specimens.The performance of the FilmArrayRP has not been established in individuals who received influenza vaccine. Recent administration of a nasal influenza vaccine may cause false positive results for Influenza A and/orInfluenza B.[id number] 10:49:18 Test Item Value Reference Range Interpretation Comments PROCALCITONIN (BEAKER) (test code = < ng/mL <0.05 3036) SEPSIS RISK (ng/mL)Low: 0.05-0.50Intermediate: 0.51-2.00High: >=2.01HIGH SENSITIVITY TROPONIN [id number] 10:36:58 Test Item Value Reference Range Interpretation Comments HIGH SENSITIVITY TROPONIN I (test 69 pg/ml <=17 H code = 3228336) Pizzamaker ID - MMThe BAND LEADER STAT High Sensitivity Troponin-I results should be used in conjunctionwith other diagnostic information such as ECG, clinical observations and information, and patient symptoms to aid in the diagnosis of TX.B-TYPE NATRIURETIC FACTOR (BNP)2022-05-28 10:36:39 Test Item Value Reference Range Interpretation Comments B-TYPE NATRIURETIC PEPTIDE (BEAKER) 367 pg/mL 0-100 H (test code = 700) Pizzamaker ID - [id number] 09:16:13 Test Item Value Reference Range Interpretation Comments PHOSPHORUS (BEAKER) (test code = 3.0 mg/dL 2.3-4.7 604) Pizzamaker ID - MMCOMPREHENSIVE METABOLIC [id number] 09:16:12 Test Item Value Reference Range Interpretation [...] not appl icable for dialysis patien ts Pizzamaker ID - [id number] 09:16:12 Test Item Value Reference Range Interpretation Comments MAGNESIUM (BEAKER) (test code = 2.0 mg/dL 1.6-2.6 627) Pizzamaker ID - MMRAD, CHEST, 1 VIEW, NON [id number] 09:03:00Reason for exam:- >shortness of breathShould this be performed at the bedside?->Yes [facility] : 1935 Sex: FFINAL REPORT Exam: [...] MDReport Verified Date/Time: 05/28/2022 09:03:39 LACTIC ACID, [id number] 08:50:45 Test Item Value Reference Range Interpretation Comments LACTATE BLOOD VENOUS 3.84 mmol/L 0.50-2.00 H Specime n moderately (2) (BEAKER) (test hemolyzed code = 2872) Pizzamaker ID - [id number] 08:47:24 Test Item Value Reference Range Interpretation Comments FIBRINOGEN LEVEL (BEAKER) (test 207 mg/dl 225-434 L code = 658) PROTHROMBIN TIME/[id number] 08:47:03 Test Item Value Reference Range Interpretation Comments PROTIME (BEAKER) (test code = 14.1 seconds 11.9-14.2 759) INR (BEAKER) (test code = 370) 1.11 <=5.90 RECOMMENDED COUMADIN/WARFARIN INR THERAPY RANGESSTANDARD DOSE: 2.0 - 3.0 Includes: PROPHYLAXIS for venous thrombosis, systemic embolization; TREATMENT for venous thrombosis and/or pulmonary embolus.HIGH RISK: Target INR is 2.5-3.5 for patients with mechanical heart valves.Blood gas, [id number] 08:43:53 Test Item Value Reference Range Interpretation Comments pH, Arterial (test code 7.52 7.35-7.45 H = 2744-1) pCO2, Arterial (test 32 See_Comment L [Autom ated message] code = 2018-09) The system [facility] generated this result transmit kendrick reference range : 35 - 45 mm Hg. The reference range was not used to interpret this result as normal/abnormal . pO2, Arterial (test 187 See_Comment H [Automa kendrick message] code = 2703-7) The system [employer] generated this result transmit kendrick reference range : 80 - 90 mm Hg. The reference range was not used to interpret this result as normal/abnormal . O2 Sat, Arterial (test 99.4 % 96.0-97.0 H code = 2708-6) HCO3, Arterial (test 25 mmol/L 21-29 code = 1960-4) Base Excess, Arterial 2.9 mmol/L -2.0-3.0 (test code = 1925-7) Patient Temperature 36.5 (test code = 8310-5) FIO2 (test code = 1819) 40.0 Lab Interpretation Abnormal (test code = 03069-0) [facility] [id number] 08:43:53 Test Item Value Reference Range Interpretation Comments pH, Arterial (test code 7.52 7.35-7.45 H = 2744-1) pCO2, Arterial (test 32 See_Comment L [Autom ated message] code = 2019-8) The system [facility] generated this result transmit kendrick reference range : 35 - 45 mm Hg. The reference range was not used to interpret this result as normal/abnormal . pO2, Arterial (test 187 See_Comment H [Automa kendrick message] code = 2703-7) The system [facility] generated this result transmit kendrick reference range : 80 - 90 mm Hg. The reference range was not used to interpret this result as normal/abnormal . O2 Sat, Arterial (test 99.4 % 96.0-97.0 H code = 2708-6) HCO3, Arterial (test 25 mmol/L 21-29 code = 1960-4) Base Excess, Arterial 2.9 mmol/L -2.0-3.0 (test code = 1925-7) Patient Temperature 36.5 (test code = 8310-5) FIO2 (test code = 1819) 40.0 Lab Interpretation Abnormal (test code = 63197-3) [facility] [id number] 08:43:53 Test Item Value Reference Range Interpretation Comments pH, Arterial (test code 7.52 7.35-7.45 H = 2744-1) pCO2, Arterial (test 32 See_Comment L [Autom ated message] code = 2019-8) The system [facility] generated this result transmit kendrick reference range : 35 - 45 mm Hg. The reference range was not used to interpret this result as normal/abnormal . pO2, Arterial (test 187 See_Comment H [Automa kendrick message] code = 2703-7) The system [facility] generated this result transmit kendrick reference range : 80 - 90 mm Hg. The reference range was not used to interpret this result as normal/abnormal . O2 Sat, Arterial (test 99.4 % 96.0-97.0 H code = 2708-6) HCO3, Arterial (test 25 mmol/L 21-29 code = 1960-4) Base Excess, Arterial 2.9 mmol/L -2.0-3.0 (test code = 1925-7) Patient Temperature 36.5 (test code = 8310-5) FIO2 (test code = 1819) 40.0 Lab Interpretation Abnormal (test code = 20781-2) [facility], [id number] 08:43:53 Test Item Value Reference Range Interpretation [...] (test code = 1819) 40.0 CBC WITH [id number] 00:09:18 Test Item Value Reference Range Interpretation [...] RDW-SD (test code = 45.1 fL 39.0-49.9 11511-9) RDW-CV (test code = 15.3 % 12.0-15.5 788-0) PLT (test code = See_Comment [Automated 777-3) message] The sy stem which generated this result transmitted reference range : 166 - 358 10*3/ ?L. The reference r nanci was not used to interpret this result as normal/abnormal . MPV (test code = 11.4 fL 9.5-12.9 82980-8) NRBC/100 WBC (test See_Comment [Automat ed code = 8981779567) message] The system which generated this result transmitted reference range : 0.0 - 10.0 /100 WBCs. The refer ence range was not u sed to interpret th is result as normal/abnormal . NRBC x10^3 (test code See_Comment [Auto mated = 4322843100) message] The s ystem which generated this result transmitted reference range : 10*3/?L. The reference range was not used to interpret this result as normal/abnormal . GRAN MAT (NEUT) % 57.0 % (test code = 770-8) IMM GRAN % (test code 0.30 % = 1125461762) LYMPH % (test code = 32.1 % 736-9) MONO % (test code = 7.8 % 5905-5) EOS % (test code = 2.5 % 713-8) BASO % (test code = 0.3 % 706-2) GRAN MAT x10^3(ANC) 4.26 10*3/uL 1.88-7.09 (test code = 9488869460) IMM GRAN x10^3 (test 0.00-0.06 code = 1671360240) LYMPH x10^3 (test code 2.40 10*3/uL 1.32-3.29 = 731-0) MONO x10^3 (test code 0.58 10*3/uL 0.33-0.92 = 742-7) EOS x10^3 (test code = 0.19 10*3/uL 0.03-0.39 711-2) BASO x10^3 (test code 0.01-0.07 = 704-7) Lab Interpretation Abnormal (test code = 51631-3) [facility] WITH [id number] 00:09:18 Test Item Value Reference Range Interpretation Comments WBC (test code = 7.47 See_Comment [Automated 5893-2) message] The sy stem which generated this result transmitted reference range : 4.30 - 11.10 10*3/?L. The reference range was not used to interpret this result as normal/abnormal . RBC (test code = 4.42 See_Comment [Automated 453-8) message] The sy stem which generated this [...] RDW-SD (test code = 45.1 fL 39.0-49.9 80931-3) RDW-CV (test code = 15.3 % 12.0-15.5 788-0) PLT (test code = 332 See_Comment [Automated 575-3) message] The sy stem which generated this result transmitted reference range : 166 - 358 10*3/ ?L. The reference r nanci was not used to interpret this result as normal/abnormal . MPV (test code = 11.4 fL 9.5-12.9 54370-0) NRBC/100 WBC (test 0.0 See_Comment [Automat ed code = 7159380306) message] The system which generated this result transmitted reference range : 0.0 - 10.0 /100 WBCs. The refer ence range was not u sed to interpret th is result as normal/abnormal . NRBC x10^3 (test code See_Comment [Auto mated = 4054949914) message] The s ystem which generated this result transmitted reference range : 10*3/?L. The reference range was not used to interpret this result as normal/abnormal . GRAN MAT (NEUT) % 57.0 % (test code = 770-8) IMM GRAN % (test code 0.30 % = 8219228622) LYMPH % (test code = 32.1 % 736-9) MONO % (test code = 7.8 % 5905-5) EOS % (test code = 2.5 % 713-8) BASO % (test code = 0.3 % 706-2) GRAN MAT x10^3(ANC) 4.26 10*3/uL 1.88-7.09 (test code = 7834060712) IMM GRAN x10^3 (test 0.00-0.06 code = 6471296483) LYMPH x10^3 (test code 2.40 10*3/uL 1.32-3.29 = 731-0) MONO x10^3 (test code 0.58 10*3/uL 0.33-0.92 = 742-7) EOS x10^3 (test code = 0.19 10*3/uL 0.03-0.39 711-2) BASO x10^3 (test code 0.01-0.07 = 704-7) Lab Interpretation Abnormal (test code = 39335-7) [facility] WITH [id number] 00:09:18 Test Item Value Reference Range Interpretation [...] RDW-SD (test code = 45.1 fL 39.0-49.9 64672-1) RDW-CV (test code = 15.3 % 12.0-15.5 788-0) PLT (test code = 332 See_Comment [Automated 777-3) message] The sy stem which generated this result transmitted reference range : 166 - 358 10*3/ ?L. The reference r nanci was not used to interpret this result as normal/abnormal . MPV (test code = 11.4 fL 9.5-12.9 12535-5) NRBC/100 WBC (test 0.0 See_Comment [Automat ed code = 8630563800) message] The system which generated this result transmitted reference range : 0.0 - 10.0 /100 WBCs. The refer ence range was not u sed to interpret th is result as normal/abnormal . NRBC x10^3 (test code See_Comment [Auto mated = 0730841666) message] The s ystem which generated this result transmitted reference range : 10*3/?L. The reference range was not used to interpret this result as normal/abnormal . GRAN MAT (NEUT) % 57.0 % (test code = 770-8) IMM GRAN % (test code 0.30 % = 2452038210) LYMPH % (test code = 32.1 % 736-9) MONO % (test code = 7.8 % 5905-5) EOS % (test code = 2.5 % 713-8) BASO % (test code = 0.3 % 706-2) GRAN MAT x10^3(ANC) 4.26 10*3/uL 1.88-7.09 (test code = 6500118600) IMM GRAN x10^3 (test 0.00-0.06 code = 9871550280) LYMPH x10^3 (test code 2.40 10*3/uL 1.32-3.29 = 731-0) MONO x10^3 (test code 0.58 10*3/uL 0.33-0.92 = 742-7) EOS x10^3 (test code = 0.19 10*3/uL 0.03-0.39 711-2) BASO x10^3 (test code 0.01-0.07 = 704-7) Lab Interpretation Abnormal (test code = 85028-2) [facility] ([id number])2021-09-03 20:37:56 Test Item Value Reference Range Interpretation Comments NA (test code = 138 mmol/L 135-145 0414501839) K (test code = 4.4 mmol/L 3.5-5.0 0284230886) CL (test code = 99 mmol/L 98-108 6596515604) CO2 TOTAL (test code = 28 mmol/L 23-31 1742779191) AGAP (test code = 11 2-16 9926686590) BUN (test code = 18 mg/dL 7-23 8683453244) GLUCOSE (test code = 122 mg/dL 70-110 H 5144581181) CREATININE (test code = 0.59 mg/dL 0.50-1.04 6156995399) TOTAL BILI (test code = 0.5 mg/dL 0.1-1.1 2369959486) CALCIUM (test code = 9.0 mg/dL 8.6-10.6 6630246343) T PROTEIN (test code = 6.6 g/dL 6.3-8.2 9769207978) ALBUMIN (test code = 4.1 g/dL 3.5-5.0 0939980764) ALK PHOS (test code = 91 U/L 34-122 2530725526) ALTv (test code = 21 U/L 5-35 2-6) AST(SGOT) (test code = 27 U/L 13-40 9019559090) eGFR (test code = 96.9 mL/min/1.73m2 0605419350) ALEXIS (test code = ALEXIS) Association of [...] tests). Lab Interpretation Abnormal (test code = 71162-2) [facility] Test Item Value Reference Range Interpretation Comments LIPASE (test code = 4514234759) 184 U/L 0-220 Lab Interpretation (test code = Normal 15216-5) [facility] WITH [id number] 19:27:42 Test Item Value Reference Range Interpretation [...] RDW-SD (test code = 48.8 fL 39.0-49.9 02107-7) RDW-CV (test code = 15.2 % 12.0-15.5 788-0) PLT (test code = 291 See_Comment [Automated 777-3) message] The sy stem which generated this result transmitted reference range : 166 - 358 10*3/ ?L. The reference r nanci was not used to interpret this result as normal/abnormal . MPV (test code = 11.2 fL 9.5-12.9 96038-0) NRBC/100 WBC (test 0.0 See_Comment [Automat ed code = 8663753841) message] The system which generated this result transmitted reference range : 0.0 - 10.0 /100 WBCs. The refer ence range was not u sed to interpret th is result as normal/abnormal . NRBC x10^3 (test code See_Comment [Auto mated = 8094427127) message] The s ystem which generated this result transmitted reference range : 10*3/?L. The reference range was not used to interpret this result as normal/abnormal . GRAN MAT (NEUT) % 60.5 % (test code = 770-8) IMM GRAN % (test code 0.40 % = 6062951639) LYMPH % (test code = 27.5 % 736-9) MONO % (test code = 8.3 % 5905-5) EOS % (test code = 2.9 % 713-8) BASO % (test code = 0.4 % 706-2) GRAN MAT x10^3(ANC) 5.06 10*3/uL 1.88-7.09 (test code = 0583238754) IMM GRAN x10^3 (test 0.03 10*3/uL 0.00-0.06 code = 0453152952) LYMPH x10^3 (test code 2.29 10*3/uL 1.32-3.29 = 731-0) MONO x10^3 (test code 0.69 10*3/uL 0.33-0.92 = 742-7) EOS x10^3 (test code = 0.24 10*3/uL 0.03-0.39 711-2) BASO x10^3 (test code 0.03 10*3/uL 0.01-0.07 = 704-7) Lab Interpretation Abnormal (test code = 27325-2) [facility], FLUORO, NON-SPECIFIC, UP TO 1 HOUR 2019-07-14 09:44:00Reason for exam:->cystoFINAL REPORT A fluoroscopic unit was utilized for a procedure performed in the operating room. No interpretation was requested. Please refer to the operative report regarding findings. Please refer to PACS for patient radiation dose information. Signed: JR Johnson Robert MDReport Verified Date/Time: 07/14/2019 09:44:15 Reading Location: [address] Neuro Reading Room BLOOD [id number] 11:00:00 Test Item Value Reference Range Interpretation Comments CULTURE (BEAKER) (test No growth in 5 days code = 1095) BLOOD [id number] 11:00:00 Test Item Value Reference Range Interpretation Comments CULTURE (BEAKER) (test No growth in 5 days code = 1095) URINE [id number] 11:07:00 Test Item Value Reference Range Interpretation Comments CULTURE (BEAKER) (test code = 1095) No growth ANG, NEPHROSTOMY, PERC, EXTERNAL [id number] 11:00:00Reason for exam:- >request left PCN for left obstructing stone, feversFINAL REPORT Procedure: Percutaneous nephrostomy catheter placement. History: Left ureteric calculus with obstruction, infection. Rod Straightener: Bradford Matthew M.D. Stain Applicator: Not Konstantin mckeon Modality: Ultrasound and fluoroscopy. [...] sequential dilatation of the tract, an 8.5 Mozambican nephrostomy catheter was placed, pigtail locked in [...] Impression:Successful ultrasound and fluoroscopic g uided 8.5 Mozambican nephrostomy catheter placement left kidney via a posterior inferior calyx as described above. Further management dictated by the clinical scenario. The nephrostomy catheter(s) should be exchanged at the latest in three months. Thank you for the opportunity to assist in the care of your patient. Signed: Bradford Matthew MDReport Verified Date/Time: 07/10/2019 11:00:12 Reading Location:[address] Body Reading Room 11:00 AMBASIC METABOLIC [id number] 07:33:00 Test Item Value Reference Range Interpretation [...] 1092) DATA TO CALCULA TE ESTIMATED GFR. Pizzamaker ID - MONIE [id number] 07:25:00 Test Item Value Reference Range Interpretation Comments MAGNESIUM (BEAKER) (test code = 2.2 mg/dL 1.6-2.6 627) Pizzamaker ID - MONIE CHEPATIC FUNCTION [id number] 07:25:00 Test Item Value Reference Range Interpretation [...] (test code = 43 U/L 6-55 347) Pizz[employer]aker - MONIE CCBC W/PLT COUNT & AUTO [id number] 06:54:00 Test Item Value Reference Range Interpretation [...] (BEAKER) (test code = 2801) BASIC METABOLIC [id number] 05:38:00 Test Item Value Reference Range Interpretation [...] 1092) DATA TO CALCULA TE ESTIMATED GFR. Pizzamaker ID - [id number] 05:24:00 Test Item Value Reference Range Interpretation Comments MAGNESIUM (BEAKER) (test code = 1.8 mg/dL 1.6-2.6 627) Pizzamaker ID - LAHEPATIC FUNCTION [id number] 05:24:00 Test Item Value Reference Range Interpretation [...] (test code = 36 U/L 6-55 347) Pizzamaker ID - LACBC W/PLT COUNT & AUTO [id number] 04:34:00 Test Item Value Reference Range Interpretation [...] (BEAKER) (test code = 2801) LACTIC ACID, [id number] 20:25:00 Test Item Value Reference Range Interpretation Comments LACTATE BLOOD VENOUS (2) (BEAKER) 0.69 mmol/L 0.50-2.20 (test code = 2872) Pizzamaker ID - NTPRAD, CHEST, 1 VIEW, NON [id number] 16:24:00Reason for exam:->feverShould this be performed at the bedside?->YesFINAL REPORT CLINICAL HISTORY: fever TECHNIQUE: 1 view of the chest. COMPARISON: None IMPRESSION: There is possible retrocardiac left lower lobe consolidation, for which clinical correlation for pneumonia is requested. There is blunting of the left costophrenic angle. The heart isnot enlarged. Signed: Rich Rebolledo MDReport Verified Date/Time: 07/08/2019 16:24:52 Reading Location: [address] Neuro Reading Room HEMOGLOBIN [id number] 13:56:00 Test Item Value Reference Range Interpretation Comments HEMOGLOBIN A1C (BEAKER) (test code = 6.1 % 4.3-6.1 368) URINALYSIS W/ REFLEX URINE [id number] 13:15:00 Test Item Value Reference Range Interpretation [...] = 516) SOURCE(BEAKER) (test code = 2795) Pizzamaker ID - [auto]Pizzamaker ID - techRESPIRATORY PANEL [id number] 12:14:00 Test Item Value Reference Range Interpretation [...] sample was tested at the [facility] using the 66. comArray Respiratory Panel. It is FDA cleared and has been verified and approved by the [facility] for clinical use on nasopharyngeal swab specimens.The performance of the FilmArrayRP has not been established in individuals who received influenza vaccine. Recent administration of a nasal influenza vaccine may cause false positive results for Influenza A and/orInfluenza B.SARS-COV2/RT-PCR ([facility])2019-07-08 11:26:00 Test Item Value Reference Range Interpretation Comments SARS-COV2/RT-PCR (test Not Detected Not Detected, Negative code = 6272427) SARS-COV-[address] [facility] (test code = 8633377) Negative results do not preclude SARS-CoV-2 infection [...] of the Act.Fact Sheet for Healthcare Pro viders:https://www.Figma/Documents/Xpert%20Xpress%20SARS%20CoV-2/Fact%20Sh eets/302-3802%94DUQA-EPJ-4%20HEALTHCARE%20PROVIDERS%20FACT%20SHEET.pdfFact Sheet for Healthcare Patients:https://www.[employer]/Documents/Xpert%20Xpress%20SARS%20CoV-2/Fact%20Sheets/302-3801%20SARS-COV -2%20PATIENT%20FACT%20SHEET.pdfPerforming Laboratory:[facility], [place] [address]AHUAE METABOLIC [id number] 10:06:00 Test Item Value Reference Range Interpretation [...] 1092) DATA TO CALCULA TE ESTIMATED GFR. Pizzamaker ID - [id number] 10:05:00 Test Item Value Reference Range Interpretation Comments MAGNESIUM (BEAKER) (test code = 2.0 mg/dL 1.6-2.6 627) Pizzamaker ID - NTPHEPATIC FUNCTION [id number] 10:05:00 Test Item Value Reference Range Interpretation [...] (test code = 30 U/L 6-55 347) Pizzamaker ID - [id number] 09:53:00 Test Item Value Reference Range Interpretation [...] 2.5-3.5 for patients wiht mechanical heart valves.PROTHROMBIN TIME/[id number] 09:51:00 Test Item Value Reference Range Interpretation [...] for patients wiht mechanical heart valves.LACTIC ACID, [id number] 09:50:00 Test Item Value Reference Range Interpretation Comments LACTATE BLOOD VENOUS (2) (BEAKER) 2.87 mmol/L 0.50-2.20 H (test code = 2872) Pizzamaker ID - NTPCBC W/PLT COUNT & AUTO [id number] 09:41:00 Test Item Value Reference Range Interpretation [...] Progress Notes Date/Time Note Provider Source 2022-09-08 11:30:00 [id number]:30:00Formatting of this note [facility] might be different from the original.Elevated NT-proBNP noted at 969 which is increased compared to 2 months ago done in our hospital but better than the recent admission in the hospital from [place].CMP within acceptable limits.Patient's son has habit of changing the Lasix as per the need. Please ask what the current dose of Lasix he has been giving her.I also recommend referring her to heart failure clinic in [place] for further management of her underlying heart failure. 32068-6Jlpljmlo [id number]:[id number]:54Progress [id number] for patient [address] Ey[id number] [id number]:55:541.2.840 .293992.1.72.3.15|1.2.840.991476.1.13.104. [id number]
[2022-11-17 07:14] LABS: Absolute Lymphocytes (CBC) 8.2 K/uL (0.7-4.9); Lymphocytes % 51.4 % (15.3-44.8); MCV 83.6 fL (80-100); MPV 8.3 fL (7.6-11.3); Platelets 350 thou/uL (152-406); RBC Red Blood Cell Count 5.39 M/uL (3.86-4.86)
[2022-11-17 07:17] LABS: Protime INR 0.96
[2022-11-17] MEDS ORDERED: METHYLPREDNISOLONE 125 MG INJ ONE (07:22)
[2022-11-17] MEDS ORDERED: ALBUTEROL 2.5 MG/3 ML NEB SOL ONE (07:23)
[2022-11-17] MEDS ORDERED: FUROSEMIDE 40 MG/4 ML VIAL ONE (07:23)
[2022-11-17] MEDS ORDERED: NITROGLYCERIN 1 GM PKT TD ONE (07:23)
[2022-11-17 07:26] LABS: ALT/SGPT 26 U/L (13-56); AST/SGOT 20 U/L (15-37); Albumin 3.3 g/dL (3.4-5.0); Alkaline Phosphatase 131 U/L (45-117); BUN Blood Urea Nitrogen 10 mg/dL (7-18); Bicarbonate 19 mEq/L (21-32); Bilirubin Total 0.4 mg/dL (0.2-1.0); Creatine Phosphokinase 76 U/L (26-192); Glomerular Filtration Rate 70 ml/min (=/>90); Glucose Level 281 mg/dL (74-106); Lipase 60 U/L (13-75); Magnesium 2.7 mg/dL (1.6-2.4); NT PRO-BNP 1627 pg/mL (<450); Potassium 3.9 mEq/L (3.5-5.1); Protein, Total 7.6 g/dL (6.4-8.2); Sodium Level 135 mEq/L (136-145); Troponin High Sensitivity 44.6 pg/mL (<58.9)
[2022-11-17 07:30] LABS: Bilirubin Direct < 0.1 mg/dL (0-0.2); Bilirubin Indirect, Calculated ND mg/dL (0.2-0.8)
--- NOTE | 2022-11-17 08:34 | ER ---
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 Coronavirus screen: At this time, unable to obtain information related to travel outside the [place] Client presents with at least one sign or symptom that may indicate coronavirus-19. Standard/surgical mask placed on the client. Ebola Screen: Patient negative for fever greater than or equal to 101.5 degrees Fahrenheit, and additional compatible Ebola Virus Disease symptoms. Initial Sepsis Screen: Does the patient meet any 2 criteria? RR > 20 per min. HR > 90 bpm. Yes Does the patient have a suspected source of infection? No. Patient's initial sepsis screen is negative. Risk Assessment: Do you want to hurt yourself or someone else? Patient reports no desire to harm self or others. Onset of symptoms was November 17, 2022. 06:49 Method Of Arrival: Wheelchair lg3 06:49 Acuity: ISHAN 3 lg3 Triage Assessment: 06:53 General: Appears distressed, Behavior is cooperative, agitated, restless. Pain: Denies lg3 pain. EENT: No deficits noted. No signs and/or symptoms were reported regarding the EENT system. Neuro: Liu Agitation-Sedation Scale (RASS): +1 Restless Level of Consciousness is awake, alert, obeys commands, Oriented to person, place, time, situation. Cardiovascular: Capillary refill < 3 seconds Clubbing of nail beds is absent JVD is present on right. Respiratory: Reports shortness of breath air hunger labored breathing Breath sounds with crackles bilaterally. the patient has severe shortness of breath. GI: No deficits noted. No signs and/or symptoms were reported involving the gastrointestinal system. : No deficits noted. No signs and/or symptoms were reported regarding the genitourinary system. Derm: Skin is intact, Skin is diaphoretic, Skin is normal, Skin temperature is warm. Musculoskeletal: No deficits noted. No signs and/or symptoms reported regarding the musculoskeletal system. Circulation, motion, and sensation intact. Range of motion: intact in all extremities. Historical: - Allergies: 07:35 No Known Allergies; kc6 - PMHx: 06:53 Asthma; Congestive heart failure; CVA; Hyperlipidemia; Hypertension; lg3 - PSHx: 06:53 choleycestectomy; hysterectomy; kidney stones; lg3 - Immunization history:: Adult Immunizations up to date, Client reports receiving the 2nd dose of the Covid vaccine. - Social history:: Smoking status: Patient denies any tobacco usage or history of. Patient/guardian denies using alcohol, street drugs. - Family history:: not pertinent. Screenin:00 [facility] ED Fall Risk Assessment (Adult) History of falling in the last 3 months, kc6 including since admission No falls in past 3 months (0 pts) Confusion or Disorientation No (0 pts) Intoxicated or Sedated No (0 pts) Impaired Gait No (0 pts) Mobility Assist Device Used No (0 pt) Altered Elimination No (0 pt) Score/Fall Risk Level 0 - 2 = Low Risk. Abuse screen: Denies threats or abuse. Denies injuries from another. Nutritional screening: No deficits noted. Tuberculosis screening: No symptoms or risk factors identified. Assessment: 07:00 General: Appears in no apparent distress. uncomfortable, Behavior is calm, cooperative, kc6 appropriate for age. Pain: Denies pain. Neuro: Level of Consciousness is awake, alert, obeys commands, Oriented to person, place, time, situation, Appropriate for age. Cardiovascular: Denies chest pain, Heart tones S1 S2 present Capillary refill < 3 seconds Rhythm is sinus rhythm. Respiratory: Reports shortness of breath at rest on exertion Airway is patent Trachea midline Respiratory effort is even, Respiratory pattern is symmetrical, tachypnea. GI: No signs and/or symptoms were reported involving the gastrointestinal system. : No signs and/or symptoms were reported regarding the genitourinary system. EENT: No signs and/or symptoms were reported regarding the EENT system. Derm: No signs and/or symptoms reported regarding the dermatologic system. Skin is intact, is healthy with good turgor, Skin is pink, warm \T\ dry. Musculoskeletal: No signs and/or symptoms reported regarding the musculoskeletal system. Circulation, motion, and sensation intact. Capillary refill < 3 seconds, Range of motion: intact in all extremities. 08:37 Reassessment: Patient appears in no apparent distress at this time. Patient and/or ph family updated on plan of care and expected duration. Pain level reassessed. Pt resting comfortably w/ bi-pap in place, VSS, family at bedside. 09:37 Reassessment: Patient appears in no apparent distress at this time. No changes from kc6 previously documented assessment. Patient and/or family updated on plan of care and expected duration. Pain level reassessed. Patient is alert, oriented x 3, equal unlabored respirations, skin warm/dry/pink. 10:49 Reassessment: Patient appears in no apparent distress at this time. No changes from ph previously documented assessment. Patient and/or family updated on plan of care and expected duration. Pain level reassessed. 11:00 Reassessment: please see [facility] for further charting. kc6 Vital Signs: 06:49 BP 183 / 155; Pulse 131; Resp 41; Temp 98.7(A); Pulse Ox 43% on R/A; Weight 77 kg (R); lg3 Height 4 ft. 11 in. ; 06:55 Pulse Ox 88% on Non-rebreather mask; lg3 06:56 Pulse Ox 100% on BiPAP; lg3 07:36 BP 135 / 70; Pulse 70; Resp 18 S; Temp 98.6(Ca); Pulse Ox 100% on BiPAP; Pain 0/10; kc6 08:38 BP 125 / 66; Pulse 85; Resp 20; Temp 99.2(Ca); Pulse Ox 95% on BiPAP; FiO2 30 %; ph 09:55 BP 118 / 56; Pulse 85; Resp 17 S; Pulse Ox 100% on BiPAP; kc6 10:49 BP 126 / 62; Pulse 76; Resp 20; Temp 99.2(Ca); Pulse Ox 96% on BiPAP; FiO2 30 %; ph 12:00 BP 119 / 55; Pulse 86; Resp 18; Pulse Ox 97% on BiPAP; FiO2 30 %; ph 13:00 BP 131 / 55; Pulse 75; Resp 18; Temp 99.2; Pulse Ox 97% on BiPAP; FiO2 30 %; ph 06:49 Body Mass Index 34.29 (77.00 kg, 149.86 cm) lg3 07:36 Pain Scale: Adult kc6 Vitals: 08:38 Cardiac Rhythm Assessment Sinus rhythm. ph ED Course: 06:47 Patient arrived in ED. rv1 06:48 Kyle Low MD is Attending Physician. sp4 06:53 Triage completed. lg3 06:53 Arm band placed on right wrist. lg3 06:55 Oxygen administration via non-rebreather mask \T\ 15L/min Response to oxygen therapy: lg3 symptoms improved. 07:00 Patient has correct armband on for positive identification. Placed in gown. Bed in low kc6 position. Call light in reach. Side rails up X2. Adult w/ patient. Client placed on continuous cardiac and pulse oximetry monitoring. NIBP monitoring applied. alarm security or surveillance monitor on. 07:01 Rogelio Menendez, VIVIENNE is Primary Nurse. bp 07:02 Inserted saline lock: 22 gauge in right in left hand, using aseptic technique. bp 07:33 Attending Physician role handed off by Kyle Low MD ms3 07:33 Gael Peres DO is Attending Physician. ms3 07:33 [place] cath inserted, using sterile technique, 16 Fr., by hot plate plywood press feeder, balloon inflated, to kc6 gravity drainage, clamped. returned clear yellow urine. Patient tolerated well. criticore. 08:00 XRAY CXR (1 view) In Process Unspecified. EDMS 08:32 Chantale Garcia MD is Hospitalizing Provider. ms3 08:42 No provider procedures requiring assistance completed. Patient admitted, IV remains in ph place. 11:10 Inserted saline lock: 22 gauge in left antecubital area, using aseptic technique. Blood kc6 collected. Administered Medications: 07:33 Drug: Albuterol Inhalation 2.5 mg Inhalation every 20 minutes x3 Route: Inhalation; kc6 07:33 Drug: Furosemide IVP 40 mg IVP once; give over 2 minutes Route: IVP; Site: left hand; kc6 08:39 Follow up: Response: No adverse reaction ph 07:33 Drug: MethylPrednisoLONE IVP 125 mg IVP once Route: IVP; Site: left hand; kc6 08:39 Follow up: Response: No adverse reaction ph 07:33 Not Given (Physician Discretion): nitroglycerinointment 2 % 1 inches Transdermal once kc6 08:00 Drug: Albuterol Inhalation 2.5 mg Inhalation every 20 minutes x3 Route: Inhalation; ph 08:39 Drug: Albuterol Inhalation 2.5 mg Inhalation every 20 minutes x3 Route: Inhalation; ph 08:39 Follow up: Response: No adverse reaction ph Medication: 08:38 VIS not applicable for this client. ph Outcome: 08:33 Decision to Hospitalize by Provider. ms3 11:09 Admitted to ER Hold. Please see [facility] for further documentation. kc6 11:09 Condition: improved 11:09 Instructed on the need for admit, 15:00 Patient left the ED. kc6 Signatures: Dispatcher [employer] EDMS Akua Daniel RN RN ph Rogelio Menendez RN RN bp Vani Jerry RN RN lg3 Gael Peres DO DO ms3 Carlota Hicks RN RN kc6 Colleen Goff rv1 Kyle Low MD MD sp4 Corrections: (The following items were deleted from the chart) 07:35 06:53 Allergies: Unable to obtain; lg3 kc6 13:55 13:00 BP 112 / 47; Pulse 70bpm; Resp 18bpm; Pulse Ox 97% BiPAP FiO2 30%; Temp 99.2F; ph ph
--- NOTE | 2022-11-17 08:34 | EDPHYS ---
Physician Documentation [facility] Name: Erika Jacobson Age: 87 yrs Sex: Female : 1935 Arrival Date: 11/17/2022 Time: 06:43 Bed 4 Private MD: ED Physician Gael Peres HPI: 11/17 06:50 This 87 yrs old Female presents to ER via Unassigned with complaints of sp4 dyspnea . 06:50 PMH - Allergies: 10:27 No Known Allergies PMHx: Asthma; Congestive heart failure; CVA; sp4 Hyperlipidemia; Hypertension; PSHx: 10:27 choleycestectomy; hysterectomy; kidney stones;. 06:55 87-year-old female presents with acute moderate to severe shortness of breath on sp4 awakening 1 hour ago. On arrival patient presented with moderate to severe respiratory distress, hypoxemia, generalized weakness, initial oxygenation noted to be 49%. Patient not able to provide HPI secondary to respiratory distress. Patient has past medical history of asthma, CVA, hyperlipidemia, hypertension, CHF, prediabetes, cholecystectomy. Patient was admitted for similar presentation 11/01/2022. Home medications include aspirin, atorvastatin, losartan, carvedilol, ipratropium albuterol, furosemide, iron, spironolactone. Patient was diagnosed with acute combined systolic and diastolic CHF, with volume overload pattern, pulmonary edema, moderate persistent asthma with acute exacerbation, hyperlipidemia, history of CVA hypertension. Also CKD stage II, hypokalemia, history of prior DVT, CODE STATUS was reported to be comfort care. . Historical: - Allergies: 07:35 No Known Allergies; kc6 - PMHx: 06:53 Asthma; Congestive heart failure; CVA; Hyperlipidemia; Hypertension; lg3 - PSHx: 06:53 choleycestectomy; hysterectomy; kidney stones; lg3 - Immunization history:: Adult Immunizations up to date, Client reports receiving the 2nd dose of the Covid vaccine. - Social history:: Smoking status: Patient denies any tobacco usage or history of. Patient/guardian denies using alcohol, street drugs. - Family history:: not pertinent. ROS: 06:55 Constitutional: Negative for fever, chills, and weight loss, positive generalized sp4 weakness and dyspnea 06:55 All other systems are negative, 06:55 Unable to obtain ROS due to Full ROS cannot be obtained secondary to respiratory distress, Exam: 06:55 Constitutional: This is a well developed, well nourished patient who is awake, alert, sp4 moderate to severe respiratory distress, dyspnea tachypnea and pallor. Elderly frail female Head/Face: Normocephalic, atraumatic. Eyes: Pupils equal round and reactive to light, extra-ocular motions intact. Lids and lashes normal. Conjunctiva and sclera are not injected. Cornea within normal limits. Periorbital areas with no swelling, redness, or edema. ENT: Nares patent. No nasal discharge, no septal abnormalities noted. Tympanic membranes are normal and external auditory canals are clear. Oropharynx with no redness, swelling, or masses, exudates, or evidence of obstruction, uvula midline. Mucous membranes moist. Neck: Trachea midline, no thyromegaly or masses palpated, and no cervical lymphadenopathy. Supple, full range of motion without nuchal rigidity, or vertebral point tenderness. Chest/axilla: Normal chest wall appearance and motion. Nontender with no deformity. No lesions are appreciated. Cardiovascular: Regular rate and rhythm with a normal S1 and S2. No gallops, murmurs, or rubs. Normal PMI, no JVD. No pulse deficits. Respiratory: Lungs have equal breath sounds bilaterally, positive bilateral crackles, positive dyspnea tachypnea and respiratory distress that is moderate, positive hypoxemia on the monitor positive generalized pallor positive decreased breath sounds at the bases Abdomen/GI: Soft, non-tender, with normal bowel sounds. No distension or tympany. No guarding or rebound. No evidence of tenderness throughout. Back: No spinal tenderness. No costovertebral tenderness. Skin: Warm, dry with normal turgor. Normal color with no rashes, no lesions, and no evidence of cellulitis. MS/ Extremity: Pulses equal, no cyanosis. Neurovascular intact. Full, normal range of motion. Neuro: Awake and alert, GCS 15, oriented to person, place, time, and situation. Cranial nerves II-XII grossly intact. Motor strength 5/5 in all extremities. Sensory grossly intact. Psych: Awake, alert, with orientation to person, place and time. Behavior, mood, and affect are within normal limits 07:34 ECG was reviewed by the Attending Physician. EKG time 0704 the rate is sinus rhythm sp4 with marked arrhythmia, left axis deviation, left bundle branch block, negative AL based on Sgarbossa criteria Vital Signs: 06:49 BP 183 / 155; Pulse 131; Resp 41; Temp 98.7(A); Pulse Ox 43% on R/A; Weight 77 kg (R); lg3 Height 4 ft. 11 in. ; 06:55 Pulse Ox 88% on Non-rebreather mask; lg3 06:56 Pulse Ox 100% on BiPAP; lg3 07:36 BP 135 / 70; Pulse 70; Resp 18 S; Temp 98.6(Ca); Pulse Ox 100% on BiPAP; Pain 0/10; kc6 08:38 BP 125 / 66; Pulse 85; Resp 20; Temp 99.2(Ca); Pulse Ox 95% on BiPAP; FiO2 30 %; ph 09:55 BP 118 / 56; Pulse 85; Resp 17 S; Pulse Ox 100% on BiPAP; kc6 10:49 BP 126 / 62; Pulse 76; Resp 20; Temp 99.2(Ca); Pulse Ox 96% on BiPAP; FiO2 30 %; ph 12:00 BP 119 / 55; Pulse 86; Resp 18; Pulse Ox 97% on BiPAP; FiO2 30 %; ph 13:00 BP 131 / 55; Pulse 75; Resp 18; Temp 99.2; Pulse Ox 97% on BiPAP; FiO2 30 %; ph 06:49 Body Mass Index 34.29 (77.00 kg, 149.86 cm) lg3 07:36 Pain Scale: Adult kc6 MDM: 07:01 Differential Diagnosis altered mental status, sepsis, flu. sp4 07:02 Patient medically screened. sp4 07:35 Data reviewed: vital signs, nurses notes, old medical records, lab test result(s), EKG, sp4 radiologic studies, plain films. Consideration of Admission/Observation Escalation of care including admission/observation considered. Transition of care: After a detail discussion of the patient's case, care is transferred to Gael Peres DO. 07:35 Transition of care: Care assumed from Kyle Low MD. ms3 08:08 Management of patient was discussed with the following: Hospitalist: Braulio Mclaughlin on ms3 behalf of Dr Garcia. I considered the following discharge prescriptions or medication management in the emergency department Medications were administered in the Emergency Department. See MAR. Independent interpretation of the following test(s) in the Emergency Department EKG: See my EKG interpretation above X-Ray: My interpretation is CXR image reviewed shows bilateral pulmonary edema. Historians other than the Patient: Daughter/Son: Patient's son. Care significantly affected by the following chronic conditions: Hypertension, HLD. Counseling: I had a detailed discussion with the patient and/or guardian regarding the historical points, exam findings, and any diagnostic results supporting the discharge/admit diagnosis, lab results, radiology results, the need for further work-up and treatment in the hospital. ED course: Patient improved with placement of BiPAP. Patient's current oxygen saturation 100%. Patient to be admitted to Dr. Hernandez. Patient's family understands agrees with plan. All questions were answered. 11/17 06:49 Order name: BMP; Complete Time: 07:33 sp4 11/17 06:49 Order name: Blood Culture Adult (2) sp4 11/17 06:49 Order name: CBC with Diff; Complete Time: 07:33 sp4 11/17 06:49 Order name: CPK; Complete Time: 07:33 sp4 11/17 06:49 Order name: Hepatic Function; Complete Time: 07:33 sp4 11/17 06:49 Order name: Lipase; Complete Time: 07:33 sp4 11/17 06:49 Order name: Magnesium; Complete Time: 07:33 sp4 11/17 06:49 Order name: NT PRO-BNP; Complete Time: 07:33 sp4 11/17 06:49 Order name: PT-INR; Complete Time: 07:33 sp4 11/17 06:49 Order name: Ptt, Activated; Complete Time: 07:33 sp4 11/17 06:49 Order name: Troponin HS; Complete Time: 07:33 sp4 11/17 06:49 Order name: ABG; Complete Time: 07:33 sp4 11/17 07:01 Order name: COVID-19 SARS RT PCR; Complete Time: 13:27 sp4 11/17 07:01 Order name: Influenza Screen (a \T\ B); Complete Time: 13:27 sp4 11/17 07:02 Order name: Lactate w/ 2H reflex if indic.; Complete Time: 13:27 sp4 11/17 09:26 Order name: Urinalysis w/ reflexes EDMS 11/17 09:26 Order name: CBC with Automated Diff EDMS 11/17 09:26 Order name: CBC with Automated Diff EDMS 11/17 09:26 Order name: CBC with Automated Diff EDMS 11/17 09:26 Order name: CBC with Automated Diff EDMS 11/17 09:26 Order name: CBC with Automated Diff EDMS 11/17 09:26 Order name: CBC with Automated Diff EDMS 11/17 09:26 Order name: Comprehensive Metabolic Panel EDMS 11/17 09:26 Order name: Comprehensive Metabolic Panel EDMS 11/17 09:26 Order name: Comprehensive Metabolic Panel EDMS 11/17 09:26 Order name: Comprehensive Metabolic Panel EDMS 11/17 09:26 Order name: Comprehensive Metabolic Panel EDMS 11/17 09:26 Order name: Comprehensive Metabolic Panel EDMS 11/17 09:26 Order name: Magnesium EDMS 11/17 09:26 Order name: Magnesium EDMS 11/17 09:26 Order name: Magnesium EDMS 11/17 09:26 Order name: Magnesium EDMS 11/17 09:26 Order name: Magnesium EDMS 11/17 09:26 Order name: Magnesium EDMS 11/17 09:26 Order name: Phosphorus EDMS 11/17 09:26 Order name: Phosphorus EDMS 11/17 09:26 Order name: Phosphorus EDMS 11/17 09:26 Order name: Phosphorus EDMS 11/17 09:26 Order name: Phosphorus EDMS 11/17 09:26 Order name: Phosphorus EDMS 11/17 11:43 Order name: Glucose, Ancillary Testing; Complete Time: 13:27 EDMS 11/17 06:49 Order name: XRAY CXR (1 view); Complete Time: 13:27 sp4 11/17 06:49 Order name: BIPAP sp4 11/17 06:49 Order name: Call RT sp4 11/17 06:49 Order name: EKG; Complete Time: 06:50 sp4 11/17 09:26 Order name: CONS Physician Consult EDMS 11/17 06:49 Order name: Cardiac monitoring; Complete Time: 07:06 sp4 11/17 06:49 Order name: EKG - Nurse/Tech; Complete Time: 07:04 sp4 11/17 06:49 Order name: [place]; Complete Time: 07:33 sp4 11/17 06:49 Order name: IV Saline Lock; Complete Time: 07:06 sp4 11/17 06:49 Order name: Labs collected and sent; Complete Time: 07:06 sp4 11/17 06:49 Order name: O2 Per Protocol; Complete Time: 07:06 sp4 11/17 06:49 Order name: O2 Sat Monitoring; Complete Time: 07:06 sp4 EC:34 Rate is 90 beats/min. Rhythm is regular, Sinus Rhythm. Left axis deviation noted. IA sp4 interval is normal. QRS interval is prolonged. No ST changes noted. Clinical impression: No evidence of ischemia. Interpreted by me. Administered Medications: 07:33 Drug: Albuterol Inhalation 2.5 mg Inhalation every 20 minutes x3 Route: Inhalation; kc6 07:33 Drug: Furosemide IVP 40 mg IVP once; give over 2 minutes Route: IVP; Site: left hand; kc6 08:39 Follow up: Response: No adverse reaction ph 07:33 Drug: MethylPrednisoLONE IVP 125 mg IVP once Route: IVP; Site: left hand; kc6 08:39 Follow up: Response: No adverse reaction ph 07:33 Not Given (Physician Discretion): nitroglycerinointment 2 % 1 inches Transdermal once kc6 08:00 Drug: Albuterol Inhalation 2.5 mg Inhalation every 20 minutes x3 Route: Inhalation; ph 08:39 Drug: Albuterol Inhalation 2.5 mg Inhalation every 20 minutes x3 Route: Inhalation; ph 08:39 Follow up: Response: No adverse reaction ph Disposition Summary: 11/17/22 08:33 Hospitalization Ordered Notes: Hospitalization Status: Inpatient Admission ms3 Provider: Chantale Garcia ms3 Location: Intensive Care Unit ms3 Condition: Stable ms3 Problem: new ms3 Symptoms: are unchanged ms3 Bed/Room Type: Standard ms3 Room Assignment: 2-(11/17/22 14:04) dw Diagnosis - Heart failure, unspecified ms3 - Acute pulmonary edema ms3 - Acute respiratory failure ms3 Forms: - Medication Reconciliation Form ms3 - SBAR form ms3 - Leadership Thank You Letter ms3 Critical care time excluding procedures: 08:08 Critical care time: Bedside Care: 35 minutes, Consultation: 5 minutes, Family ms3 Intervention: 10 minutes. Total time: 50 minutes Signatures: Dispatcher [employer] Peggy Welch RN RN Akua Nguyen RN RN Vani Kapadia RN RN lg3 Gael Peres DO DO ms3 Carlota Hicks RN RN kc6 Kyle Low MD MD sp4 Corrections: (The following items were deleted from the chart) 07:35 06:53 Allergies: Unable to obtain; lg3 kc6 14:04 08:33 ms3 dw
--- NOTE | 2022-11-17 08:35 | RAD REPORT ---
EXAM DESCRIPTION: RADChest Single View11/17/2022 7:58 am CLINICAL HISTORY: CHEST PAIN COMPARISON: Chest Single View dated 11/01/2022; Chest Single View dated 08/28/2022; Chest Single View dated 08/07/2022; Chest Single View dated 08/03/2022 TECHNIQUE: Portable AP view of the chest. FINDINGS: Patchy mid to lower lung airspace opacities on the right are progressive since the prior e xam. Background central interstitial prominence is stable. No pneumothorax or effusion. The cardiome diastinal contours are unremarkable. IMPRESSION: Progressive right opacities which could reflect developing pneumonia or worsening edema.
--- NOTE | 2022-11-17 09:35 | P.HP ---
Certification for Inpatient Patient admitted to: Inpatient With expected LOS: >2 Midnights Patient will require the following post-hospital care: None Practitioner: I am a practitioner with admitting privileges, knowledge of patient current condition, hospital course, and medical plan of care. Services: Services provided to patient in accordance with Admission requirements found in Title 42 Section 412.3 of the Code of Federal Regulations Patient History Date of Service: 11/18/22 Reason for admission: SOB, CHF exacerbation History of Present Illness: Erika Jacobson is a 69-year-old female with past medical history of asthma, diastolic congestive heart failure, hyperlipidemia, hypertension, and DVT presenting to the ER with acute moderate to severe shortness of breath this morning when awaken approximately 1 hour [employer]PUT[employer]. She was admitted with similar presentation on 11/01/2022. Home medication regiment includes aspirin, atorvastatin, losartan, carvedilol, ipratropium albuterol, furosemide, iron, spironolactone. Chest x-ray shows patchy mid to lower airspace opacities on the right lung which is progressive, either developing pneumonia or worsening edema. Initial vitals blood pressure 183/155, heart rate 131, temperature 98.7, pulse ox 43% on room air requiring BiPAP for appropriate saturation. White blood cell 16.1 lactic acid 3.4/2.6, blood gas: pH 7.21, CO2 45.8, O2 440 on BiPAP machine, HCO3 17.7. Patient will be admitted for sepsis, respiratory acidosis, systolic congestive heart failure exacerbation. Allergies No Known Allergies Allergy (Verified 09/03/18 08:32) Home Medications: Aspirin Chewable [Aspirin Chewable*] 81 mg PO DAILY 02/15/22 Atorvastatin Calcium [Lipitor*] 20 mg PO BEDTIME 02/15/22 Losartan Potassium [Cozaar] 25 mg PO DAILY PRN 02/15/22 carvediloL [Coreg*] 6.25 mg PO BID 02/15/22 Ipratropium/Albuterol Sulfate [Iprat-Albut 0.5-3(2.5) mg/3 ml] 3 ml IH Q6H PRN #120 amp 05/09/22 Furosemide 40 mg PO BID 08/28/22 Iron 18 mg PO DAILY 08/28/22 Spironolactone 25 mg PO DAILY PRN 11/01/22 - Past Medical/Surgical History Diabetic: No -: Hypertension -: Dyslipidemia -: CVA -: kidney stones -: Asthma -: Diastolic heart failure -: Prediabetes -: Cholecystectomy Psychosocial/ Personal History: Patient lives at home with her children. - Social History Alcohol use: No CD- Drugs: No Caffeine use: Yes Review of Systems General: Weakness, Malaise Eyes: Unremarkable ENT: Unremarkable Respiratory: Cough, Shortness of Breath Cardiovascular: Orthopnea Gastrointestinal: Unremarkable Genitourinary: Unremarkable Musculoskeletal: Unremarkable Integumentary: Unremarkable Neurological: Weakness Physical Examination - Vital Signs Pulse: 81 Pulse Ox (%): 100 - Physical Exam General: Acute distress, Confused HEENT: Atraumatic, Normocephalic, PERRLA Neck: Supple, 2+ carotid pulse no bruit, JVD not distended Respiratory: Crackles/rales Cardiovascular: Normal pulses, Regular rate/rhythm, Normal S1 S2, Edema Capillary refill: <2 Seconds Gastrointestinal: Normal bowel sounds, Hypoactive Musculoskeletal: No clubbing, No swelling, No contractures Integumentary: No rashes, No breakdown, No significant lesion Neurological: Normal speech Urinary: Kilgore catheter - Studies Laboratory Data (last 24 hrs) 11/17/22 11/17/22 11/17/22 06:53 06:53 06:53 WBC 16.10 H Hgb 14.6 Hct 45.0 Plt Count 350 PT 10.6 INR 0.96 APTT 42.8 H Sodium 135 L Potassium 3.9 BUN 10 Creatinine 0.82 Glucose 281 H Magnesium 2.7 H Total Bilirubin 0.4 AST 20 ALT 26 Alkaline Phosphatase 131 H Lipase 60 Microbiology Data (last 24 hrs): 11/17/22 07:35 Nasopharnyx Influenza Type A Antigen Screen - Final 11/17/22 07:35 Nasopharnyx Influenza Type B Antigen Screen - Final Assessment and Plan - Plan Assessment and Plan # Acute on Chronic systolic Congestive Heart Failure/acute respiratory failure with hypoxia # Acute Respiratory acidosis Erika presents with symptoms of shortness of breath, dyspnea, lower extremity edema, and orthopnea. On exam, Erika demonstrates pulmonary crackles, bilateral lower extremity edema. Erika reported dry weight is 77 kg on admission. At this time, will admit for diuresis and medical optimization. - Consult Cardiology - recommendations appreciated - Ordered transthoracic echocardiogram - Diuresis - Daily weights - Strict I/O - NPO while on bipap, when starting diet will consist of Cardiac diet, 2 L fluid restriction, 2 g Na restriction -PH 7.21, CO2 45.8, O2 440 on bipap, HCO3 17.7 -bipap SIRS Leukocytosis -WBC 16.1, HR 131, lactate 3.4/2.6, RR 41 -rocephin/Azithomycin -Repeat lactic h/o Essential hypertension -Patient is currently normotensive -Resume BP meds stepwise starting with oral Coreg. h/o CVA -resume home medications DVT ppx: heparin LOS 2 days Full code - Advance Directives Does patient have a Living Will: No Does patient have a Durable POA for Healthcare: No Time Spent Managing Pts Care (In Minutes): 55
[2022-11-17] MEDS: INSULIN REGULAR (HUMAN) 100 UNIT/ML SQ SCH ×3 (11:30→20:54)
[2022-11-17] MEDS ORDERED: FUROSEMIDE 40 MG/4 ML VIAL IV SCH (17:00)
[2022-11-17 17:51] LABS: Specific Gravity 1.019 (1.005-1.030); Urine Bacteria <20 /HPF (<20); Urine Bilirubin NEGATIVE (Negative); Urine Blood 1+ (Negative); Urine Clarity Extremely Turbid (Clear); Urine Color Yellow (Yellow); Urine Glucose NEGATIVE (Negative); Urine Protein TRACE (Negative); Urine RBC 21-50 /HPF (None Seen); Urine Urobilinogen Normal (Normal); Urine WBC Clump Rare /HPF (None Seen); Urine pH 5.5 (5.0-7.0)
[2022-11-18 04:31] LABS: Absolute Lymphocytes (CBC) 1.5 K/uL (0.7-4.9); Hematocrit 34.7 % (36.0-45.0); Lymphocytes % 11.3 % (15.3-44.8); MCV 80.8 fL (80-100); MPV 7.8 fL (7.6-11.3); Platelets 274 thou/uL (152-406)
[2022-11-18 04:47] LABS: Albumin 2.8 g/dL (3.4-5.0); Bilirubin Total 0.3 mg/dL (0.2-1.0); Magnesium 2.1 mg/dL (1.6-2.4); Phosphorus 2.5 mg/dL (2.5-4.9); Potassium 3.4 mEq/L (3.5-5.1); Protein, Total 6.1 g/dL (6.4-8.2)
[2022-11-18] MEDS ORDERED: AZITHROMYCIN IV 500 MG in NA CHLORIDE 0.9% 250 ML IVPB SCH (05:14)
[2022-11-18] MEDS ORDERED: CEFTRIAXONE 1,000 MG in NA CHLORIDE 0.9% 50 ML IVPB SCH (05:14)
[2022-11-18] MEDS: POTASSIUM 25 MEQ EFFERV TAB PO SCH ×3 (05:39→21:19)
[2022-11-18] MEDS: FUROSEMIDE 40 MG/4 ML VIAL IV SCH ×3 (05:41→20:00)
[2022-11-18] MEDS: POTASS/SODIUM PHOSPHATE 1 PKT POWD.PACK PO SCH ×3 (09:14→10:50)
[2022-11-18] MEDS: ENOXAPARIN 40 MG/0.4 ML SQ SCH (09:15)
[2022-11-18] MEDS: INSULIN REGULAR (HUMAN) 100 UNIT/ML SQ SCH ×4 (09:15→21:00)
--- NOTE | 2022-11-18 12:55 | RAD REPORT ---
EXAM DESCRIPTION: [facility] Single View11/18/2022 10:31 am CLINICAL HISTORY: Chest pain COMPARISON: November 17, 2022 FINDINGS: Bilateral pulmonary opacities have mostly resolved Heart is normal size IMPRESSION: Pulmonary edema has mostly resolved
--- NOTE | 2022-11-18 13:40 | P.PN ---
Subjective Date of Service: 11/18/22 Chief Complaint: SOB, CHF exacerbation Patient states she feels much better today. She has been weaned off BiPAP and currently tolerating 2 L oxygen by nasal cannula. No recorded fever. Physical Examination - Vital Signs Temperature: 97.0 F Blood Pressure: 124/58 Pulse: 81 Respirations: 16 Pulse Ox (%): 99 - Physical Exam General: Alert, In no apparent distress, Oriented x3 HEENT: Mucous membr. moist/pink, Sclerae nonicteric Neck: Supple, JVD not distended Respiratory: Clear to auscultation bilaterally, Normal air movement Cardiovascular: No edema, Regular rate/rhythm, Normal S1 S2 Gastrointestinal: Normal bowel sounds, Soft and benign, Non-distended, No tenderness Musculoskeletal: No swelling, No tenderness Integumentary: No rashes, No cyanosis Neurological: Normal speech, Normal strength at 5/5 x4 extr, Cranial nerves 3-12 intact Assessment And Plan - Current Problems (Diagnosis) (1) Acute on chronic systolic heart failure Current Visit: Yes Status: Acute (2) Acute respiratory failure with hypoxemia Current Visit: No Status: Acute (3) Pulmonary edema Current Visit: Yes Status: Acute (4) Hypertension Current Visit: No Status: Acute Qualifiers: Hypertension type: primary hypertension Qualified Code(s): I10 - Essential (primary) hypertension (5) Obesity Onset Date: 01/01/18 Current Visit: No Status: Acute Qualifiers: Obesity type: due to excess calories Obesity classification: adult class 1 (BMI 30 - 34.9) Serious obesity comorbidity presence: without serious comorbidity Body mass index: BMI 34.0-34.9 Qualified Code(s): E66.09 - Other obesity due to excess calories; Z68.34 - Body mass index [BMI] 34.0-34.9, adult - Plan Acute on Chronic systolic Congestive Heart Failure/acute respiratory failure with hypoxia -Patient responded very well to IV diuretic. -Patient weaned off BiPAP -Clinically improved, currently asymptomatic. -Continue diuresis with IV Lasix. -Recent echocardiogram-3 months ago showed EF of 35 to 40%. - Daily weights - Strict I/O - Cardiac diet, 2 L fluid restriction, 2 g Na restriction SIRS -WBC 16.1, HR 131, lactate 3.4/2.6, RR 41 -Secondary to respiratory distress and hypoxia. No infectious sepsis -Chest x-ray opacity rapidly improved indicating pulmonary edema. -Procalcitonin is negative, blood cultures shows no growth. -Symptoms rapidly resolved. -Lactic acidosis is likely secondary to hypoxia. -Discontinue antibiotics Essential hypertension -Patient is currently normotensive -Resume BP meds stepwise starting with oral Coreg. History of CVA -Resume home medications. DVT ppx: heparin Full code
[2022-11-18] MEDS ORDERED: SPIRONOLACTONE 25 MG TABLET PO PRN (13:43)
[2022-11-18] MEDS ORDERED: ATORVASTATIN 20 MG TAB PO SCH (21:00)
[2022-11-18] MEDS: carvediloL 6.25 MG TAB PO SCH (21:18)
[2022-11-19] MEDS: FUROSEMIDE 40 MG/4 ML VIAL IV SCH ×2 (01:11→08:34)
[2022-11-19 03:22] LABS: Absolute Lymphocytes (CBC) 3.4 K/uL (0.7-4.9); Hematocrit 34.8 % (36.0-45.0); MCV 80.3 fL (80-100); MPV 8.7 fL (7.6-11.3); Platelets 283 thou/uL (152-406); RBC Red Blood Cell Count 4.34 M/uL (3.86-4.86)
[2022-11-19 03:40] LABS: Bilirubin Total 0.2 mg/dL (0.2-1.0); Magnesium 2.1 mg/dL (1.6-2.4); Potassium 3.9 mEq/L (3.5-5.1); Protein, Total 6.5 g/dL (6.4-8.2)
[2022-11-19] MEDS: INSULIN REGULAR (HUMAN) 100 UNIT/ML SQ SCH ×2 (07:30→11:30)
[2022-11-19 07:32] VITALS: BMI 33.5
[2022-11-19] MEDS: POTASSIUM 25 MEQ EFFERV TAB PO SCH (08:34)
[2022-11-19] MEDS: ENOXAPARIN 40 MG/0.4 ML SQ SCH (08:34)
[2022-11-19] MEDS: carvediloL 6.25 MG TAB PO SCH (08:35)
[2022-11-19] MEDS ORDERED: CEFTRIAXONE 1,000 MG in NA CHLORIDE 0.9% 50 ML IVPB SCH (09:00)
[2022-11-19] MEDS ORDERED: IRON 18 MG PO SCH (09:00)
[2022-11-19] MEDS ORDERED: ASPIRIN 81 MG CHEWABLE TABLET PO SCH (09:00)
[2022-11-19] MEDS ORDERED: AZITHROMYCIN IV 500 MG in NA CHLORIDE 0.9% 250 ML IVPB SCH (09:00)
--- NOTE | 2022-11-19 15:29 | P.DS ---
Admission Date: 11/17/22 Discharge Date: 11/19/22 Disposition: DC HOME/HOME HEALTH CARE Discharge Condition: FAIR Reason for Admission: SOB, CHF exacerbation - Problems (1) Acute on chronic systolic heart failure Current Visit: Yes Status: Acute (2) Acute respiratory failure with hypoxemia Current Visit: No Status: Acute (3) Pulmonary edema Current Visit: Yes Status: Acute (4) Hypertension Current Visit: No Status: Acute Qualifiers: Hypertension type: primary hypertension Qualified Code(s): I10 - Essential (primary) hypertension (5) Obesity Onset Date: 01/01/18 Current Visit: No Status: Acute Qualifiers: Obesity type: due to excess calories Obesity classification: adult class 1 (BMI 30 - 34.9) Serious obesity comorbidity presence: without serious comorbidity Body mass index: BMI 34.0-34.9 Qualified Code(s): E66.09 - Other obesity due to excess calories; Z68.34 - Body mass index [BMI] 34.0-34.9, adult Brief History of Present Illness: Erika Jacobson is a 69-year-old female with past medical history of asthma, diastolic congestive heart failure, hyperlipidemia, and hypertension presented to the ER with severe shortness of breath. She was admitted with similar presentation on 11/01/2022. Home medication regiment includes aspirin, atorvastatin, losartan, carvedilol, ipratropium albuterol, furosemide, iron, spironolactone. Chest x-ray shows patchy mid to lower airspace opacities on the right lung which is progressive, either developing pneumonia or worsening edema. Initial vitals blood pressure 183/155, heart rate 131, temperature 98.7, pulse ox 43% on room air requiring BiPAP therapy. White blood cell 16.1 lactic acid 3.4/2.6, blood gas: pH 7.21, CO2 45.8, O2 440 on BiPAP machine, HCO3 17.7. Patient was admitted for further management. Hospital Course: Acute on Chronic systolic Congestive Heart Failure/acute respiratory failure with hypoxia -Patient responded very well to IV diuretic. -She was weaned off BiPAP to oxygen by nasal cannula within 24 hours. -Repeat chest x-ray showed resolution of bilateral infiltrates indicating pulmonary edema -Clinically improved and has been asymptomatic. -IV Lasix transition to oral Lasix -Recent echocardiogram-3 months ago showed EF of 35 to 40%. - Daily weight check recommended. - Cardiac diet, 2 L fluid restriction, 2 g Na restriction SIRS -WBC 16.1, HR 131, lactate 3.4/2.6, RR 41 -Secondary to respiratory distress and hypoxia. No infectious sepsis -Chest x-ray opacity rapidly improved indicating pulmonary edema. -Procalcitonin is negative, blood cultures shows no growth. -Symptoms rapidly resolved. -Lactic acidosis is likely secondary to hypoxia. -Patient was on antibiotics briefly. Essential hypertension -BP medications resumed on discharge. History of CVA -Resumed home medications. Vital Signs/Physical Exam: Temp Pulse Resp BP Pulse Ox 97.7 F 76 16 117/59 L 95 11/19/22 12:00 11/19/22 12:31 11/19/22 12:00 11/19/22 12:31 11/19/22 12:00 Laboratory Data at Discharge: WBC 13.10 thou/uL (4.3-10.9) H 11/19/22 02:23 Hgb 11.8 g/dL (12.0-15.0) L 11/19/22 02:23 Hct 34.8 % (36.0-45.0) L 11/19/22 02:23 Plt Count 283 thou/uL (152-406) 11/19/22 02:23 PT 10.6 SECONDS (9.5-12.5) 11/17/22 06:53 INR 0.96 11/17/22 06:53 APTT 42.8 SECONDS (24.3-36.9) H 11/17/22 06:53 Sodium 137 mEq/L (136-145) 11/19/22 02:23 Potassium 3.9 mEq/L (3.5-5.1) D 11/19/22 02:23 BUN 22 mg/dL (7-18) H 11/19/22 02:23 Creatinine 0.82 mg/dL (0.55-1.02) 11/19/22 02:23 Glucose 157 mg/dL (74-106) H 11/19/22 02:23 Phosphorus 4.0 mg/dL (2.5-4.9) 11/19/22 02:23 Magnesium 2.1 mg/dL (1.6-2.4) 11/19/22 02:23 Total Bilirubin 0.2 mg/dL (0.2-1.0) 11/19/22 02:23 AST 14 U/L (15-37) L 11/19/22 02:23 ALT 29 U/L (13-56) 11/19/22 02:23 Alkaline Phosphatase 92 U/L (45-117) 11/19/22 02:23 Lipase 60 U/L (13-75) 11/17/22 06:53 Home Medications: Aspirin Chewable [Aspirin Chewable*] 81 mg PO DAILY 02/15/22 Atorvastatin Calcium [Lipitor*] 20 mg PO BEDTIME 02/15/22 Losartan Potassium [Cozaar] 25 mg PO DAILY PRN 02/15/22 Ipratropium/Albuterol Sulfate [Iprat-Albut 0.5-3(2.5) mg/3 ml] 3 ml IH Q6H PRN #120 amp 05/09/22 Furosemide 40 mg PO BID 08/28/22 Iron 18 mg PO DAILY 08/28/22 Spironolactone 25 mg PO DAILY PRN 11/01/22 Carvedilol [Coreg] 1 tab PO BID 11/19/22 Metformin HCl 500 mg PO BID #60 tab 11/19/22 New Medications: Metformin HCl 500 mg PO BID #60 tab Diet: ADA Activity: Fall precautions Followup: Unknown,U [Primary Care Provider] - 1-2 Weeks Time spent managing pt's care (in minutes): 35
[2022-11-19] MEDS ORDERED: FUROSEMIDE 40 MG TABLET PO SCH (17:00)
[2022-11-19 17:28] VITALS: BP 145/92; TEMP 98.1
[2022-11-19] MEDS ORDERED: carvediloL 3.125 MG TAB PO SCH (18:00)
[2022-11-19 18:42] VITALS: O2SAT 98
== END 2022-11-19 17:10 | disposition home or self-care (01) | DRG 291 ==
LOC: ER 06:43 → ERHOLD 09:15 → 3RD-ICU 14:29 → 4TH 11-18 15:00
PROVIDERS: ADMIT Internal Medicine; ATTEND Internal Medicine
PROC: 5A09357 Assistance with Respiratory Ventilation, Less than 24 Consecutive Hours, Continuous Positive Airway Pressure (ICD-10-PCS; principal; 2022-11-19)
DX: I13.0 Hypertensive heart and chronic kidney disease with heart failure and stage 1 through stage 4 chronic kidney disease, or unspecified chronic kidney disease (principal); I50.41 Acute combined systolic (congestive) and diastolic (congestive) heart failure; J96.01 Acute respiratory failure with hypoxia; J45.41 Moderate persistent asthma with (acute) exacerbation; E87.29 Other acidosis; R65.10 Systemic inflammatory response syndrome (SIRS) of non-infectious origin without acute organ dysfunction; E66.09 Other obesity due to excess calories; N18.2 Chronic kidney disease, stage 2 (mild); E78.5 Hyperlipidemia, unspecified; Z90.49 Acquired absence of other specified parts of digestive tract; Z86.73 Personal history of transient ischemic attack (TIA), and cerebral infarction without residual deficits; Z79.82 Long term (current) use of aspirin; Z79.02 Long term (current) use of antithrombotics/antiplatelets; Z79.899 Other long term (current) drug therapy; Z86.718 Personal history of other venous thrombosis and embolism; Z90.710 Acquired absence of both cervix and uterus; Z20.822 Contact with and (suspected) exposure to COVID-19
CPT/HCPCS: 36415; 36600; 51702; 71045; 80048; 80053; 80076; 81001; 82550; 82805; 82947; 83605; 83690; 83735; 83880; 84100; 84145; 84484; 85025; 85610; 85730; 87040; 87635; 87804; 93005; 94660; 96374; 96375; 99285; J0696; J1650; J1815; J1940; J2930; J7050; J7613

== ENCOUNTER 2022-12-16 22:39 | Emergency (ER) | payer OTHER ==
--- OUTSIDE RECORDS SUMMARY | 2022-12-16 23:02 | XMS REPORT | Continuity of Care Document ---
:1935 Author Organization [facility] t Address [address] [facility] [address] [place] [address] Care Team Providers Name Role Phone ANGELA CUNNINGHAM Primary Care Physician Unavailable LILIANA LI Attending Clinician Unavailable JOHNNIE FINNEY Attending Clinician Unavailable ANGELA CUNNINGHAM Attending Clinician Unavailable ANGELA CUNNINGHAM Attending Clinician Unavailable CECI LO Attending Clinician Unavailable Johnnie Finney MD Attending Clinician [phone] Lab, Ang - Db Attending Clinician Unavailable Ceci Lo MDHGertrude Attending Clinician 2, Adc Lab Attending Clinician Unavailable WON MATT Attending Clinician Unavailable WON MATT Attending Clinician Unavailable Doctor Unassigned, [place] Attending Clinician Unavailable Pob, Adc Lab Main Attending Clinician Unavailable Samreen Lee LMSW Attending Clinician Carmen MURGUIA, Estuardo Ramsey Attending Clinician Moira MURGUIA, Kayla Roman Attending Clinician Jose Enrique MURGUIA, Sharyn Madera Attending Clinician Rachel MURGUIA, Dane Alex Attending Clinician [phone] Catherine Garcia MD Attending Clinician Valerie Goodwin MD Attending Clinician VALERIE GOODWIN Attending Clinician Unavailable Vernell MURGUIA, Won Serra Attending Clinician Nurse, Ang-Db Neurology Attending Clinician Unavailable Unknown, Attending Attending Clinician Unavailable Nirmala APPLICATIONS COORDINATOR, Araseli Attending Clinician Ebrahiannie APPLICATIONS COORDINATOR, Rania Attending Clinician TAMELA GUTIERREZ Attending Clinician Unavailable [...] Adc Fam Pob I Attending Clinician Unavailable Clemente, [facility] Attending Clinician Unavailable Mine Blair Attending Clinician MINE NO Attending Clinician Unavailable Ethan Scott DO Attending Clinician 1, Adc Lab Attending Clinician Unavailable Renata Thacker Attending Clinician Unavailable Mirella Villalobos Attending Clinician [phone] Shy Miller Attending Clinician Unavailable LILIANA LI Admitting Clinician Unavailable KAYLA HUI Admitting Clinician Unavailable WON MATT Admitting Clinician Unavailable AUSTIN HOBSON Admitting Clinician Unavailable ADRIANA HARTMANN Admitting Clinician Unavailable Payers Payer Name Policy Type Policy Number Effective Date Expiration Date S kim AARP/MEDICARE [id number] 2019 COMPLETE 00:00:00 [employer]LL[employer]/AARP [id number] 2019 MEDICARE 00:00:00 ADVANTAGE [place]ICA[place] [id number] 2017 [place] 00[place]00 [facility] [id number] [address] [facility] 00:00:00 00:00:00 Community MEDICARE [facility] CARE Problems Condition Condition Condition Status Onset Resolution Last Treating Co mments Source Name Details Category Date Date Treatment Clinician Date Respirator Respirator Disease [facility] failure y failure nce 4-15 [facility] 00:00: [place] [address] Center Chronic Chronic Disease Active Univers diastolic diastolic 9-12 ity of heart heart 00:00: [place] failure failure 00 Medical Branch Obesity Obesity Disease Active Univers (BMI (BMI 5-28 ity of 30-39.9) 30-39.9) 00:00: [place] 00 Medical Branch Uses Uses Disease Active Univers Afghan as Afghan as -28 it y of primary primary [...] impairment impairment 9-25 it y of 00:00: [place] [facility] Hair loss Hair loss Disease Active Uni vers 9-25 ity of 00:00: [place] 00 Medical Branch COVID-19 COVID-19 Disease Active Unive rs virus virus 7-20 [place] GERD GERD Disease Active Univers (gastroeso (gastroeso 7-20 it y of phageal phageal 00:00: [place] reflux reflux 00 Medical disease) disease) Branch Neuropathy Neuropathy Disease Active U nivers of both of both 7-20 ity of feet feet 00:00: [place] 00 Medical Branch Sepsis Sepsis Disease [facility] Abdominal Abdominal Disease Active [facility] [...] pain foot pain 1-26 ity of 00:00: [place] [facility] Kidney Kidney Disease Active 2017-02 [...] Active Unive rs 4-25 ity of 00:00: [place] [facility] 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 0-05 it y of 2 diabetes 2 [place] mellitus mellitus 00 Medica l Branch Essential Essential Disease Active 2016-02 Uni vers hypertensi hypertensi 0-02 it y of on on 00:00: [place] [facility] HLD HLD Disease Active 2016-02 Univers (hyperlipi (hyperlipi 0-02 it y of demia) demia) 00:00: [place] [address] Medical Branch History of History of Disease Active 2016-02 U nivers chest pain chest pain 0-02 it y of 00:00: [place] [facility] Palpitatio Palpitatio Disease Active 2016-02 U nivers ns ns 0-02 ity of 00:00: [address] Branch Osteoporos Osteoporos Disease Active U nivers is is ity of [facility] Abnormal Abnormal Disease Active Unive rs EKG EKG ity of [facility] Allergies, Adverse Reactions, Alerts Allergy Allergy Status Severity Reaction(s) Onset Inactive Treating Comm ents Source Name Type Date Date Clinician NO KNOWN Allergy Active [facility] NO KNOWN Drug Active Univers ALLERGIE Class ity of [facility] Social History Social Habit Start Date Stop Date Quantity Comments Source Gender identity [facility] y [facility] Sexual orientation Univer sity of [facility] History SDOH [facility] Alcohol Binge Medical Marilyn [facility] History SDOH [facility] Alcohol Std Drinks [facility] History SDOH [facility] Alcohol Comment Medical C enter Exposure to 2022-07-02 2022-07-12 Not sure University SARS-CoV-2 (event) 00:00:00 14:22:00 [facility] History of Social 2022-06-09 2022-06-09 Univers ity of function 00:00:00 00:00:00 [facility] Tobacco use and 2021-08-27 2021-08-27 Smokeless Universit y of exposure 00:00:00 00:00:00 tobacco non-user [facility] Alcohol intake 2019-07-12 2019-07-12 Current MOISES [place] es 00:00:00 00:00:00 non-drinker of Medical Ce nter alcohol (finding) History SDOH 2019-07-10 2019-07-10 1 MOISES Marte Alcohol Frequency 00:00:00 00:00:00 [facility] Center Sex Assigned At [birth year] MOISES Christiansons 00:00:00 00:00:00 Medical Center Smoking Status Start Date Stop Date Source Never smoked tobacco [facility] Medications Ordered Filled Start Stop Current Ordering Indication Dosage Frequency Signature Comments Components Source Medication Medication Date Date Medication? Clinician (SIG) Name Name spironolact 2022-02 Yes 12.5mg Take 0.5 Univers one 25 mg 0-23 tablets by ity of tablet 00:00: mouth [place] 00 daily. Medical Branch losartan 2022-02 Yes [id number] 12.5mg Take 0.5 Univers mg tablet 0-23 tablets by ity of 00:00: mouth [place] 00 every day Medical at [address] [place] (noon). bumetanide 2022-02 Yes [id number] 1mg Take 1 Univers 1 mg tablet 0-23 tablet by ity of 00:00: mouth 2 [place] 00 (two) Medical times Branch daily with meals. spironolact 2022-02 Yes 12.5mg Take 0.5 Univers one 25 mg 0-23 tablets by ity of tablet 00:00: mouth [place] 00 daily. Medical Branch losartan 2022-02 Yes [id number] 12.5mg Take 0.5 Univers mg tablet 0-23 tablets by ity of 00:00: mouth [place] 00 every day Medical at [address] [place] (noon). bumetanide 2022-02 Yes [id number] 1mg Take 1 Univers 1 mg tablet 0-23 tablet by ity of 00:00: mouth 2 [place] 00 (two) Medical times Branch daily with meals. bumetanide 2022-02 No [id number] 2mg Take 2 Univers 1 mg tablet 0-23 10-23 tablets by i ty of 00:00: 00:00 mouth 2 [place] 00 :00 (two) Medical times Branch daily with meals. losartan 25 2022-02- No [id number] 12.5mg Take 0.5 Univers mg tablet 0-23 10-23 tablets by ity of 00:00: 00:00 mouth [place] 00 :00 daily. Medical Branch bumetanide 2022-02- No [id number] 2mg Take 2 Univers 1 mg tablet 0-23 10-23 tablets by i ty of 00:00: 00:00 mouth 2 [place] 00 :00 (two) Medical times Branch daily with meals. losartan 25 2022-02- No [id number] 12.5mg Take 0.5 Univers mg tablet 0-23 10-23 tablets by ity of 00:00: 00:00 mouth [place] 00 :00 daily. Medical Branch pantoprazol 2022-02 Yes [id number] 40mg Take 1 Univers e 40 mg EC 0-20 tablet by ity of tablet 00:00: mouth [place] 00 daily. Medical Branch pantoprazol 2022-02 Yes [id number] 40mg Take 1 Univers e 40 mg EC 0-20 tablet by ity of tablet 00:00: mouth [place] 00 daily. Medical Branch pantoprazol 2022-02 Yes [id number] 40mg Take 1 Univers e 40 mg EC 0-20 tablet by ity of tablet 00:00: mouth [place] 00 daily. Medical Branch pantoprazol 2022-02 Yes [id number] 40mg Take 1 Univers e 40 mg EC 0-20 tablet by ity of tablet 00:00: mouth [place] 00 daily. Medical Branch carvediloL 2022-02- No 6.25mg Take 1 Un briana 6.25 mg 0-17 10-17 tablet by ity of tablet 22:07: 00:00 mouth [place] 07 :00 every Medical morning. Branch carvediloL 2022-02 Yes [id number] 3.125mg Take 1 Univers 3.125 mg 0-17 tablet by ity of tablet 00:00: mouth 2 [place] 00 (two) Medical times Branch daily. carvediloL 2022-02 Yes [id number] 3.125mg Take 1 Univers 3.125 mg 0-17 tablet by ity of tablet 00:00: mouth 2 [place] 00 (two) Medical times Branch daily. carvediloL 2022-02 Yes [id number] 3.125mg Take 1 Univers 3.125 mg 0-17 tablet by ity of tablet 00:00: mouth 2 (two) Medical times Branch daily. carvediloL 2022-02 Yes [id number] 3.125mg Take 1 Univers 3.125 mg 0-17 tablet by ity of tablet 00:00: mouth 2 (two) Medical times Branch daily. carvediloL 2022-02 Yes [id number] 3.125mg Take 1 Univers 3.125 mg 0-17 tablet by ity of tablet 00:00: mouth 2 (two) Medical times Branch daily. atorvastati Yes [id number] 10mg Take 0.5 Univers n 20 mg 9-29 tablets by ity of tablet 00:00: mouth at [place] [address] bedtime. Medical Branch atorvastati Yes [id number] 10mg Take 0.5 Univers n 20 mg 9-29 tablets by ity of tablet 00:00: mouth at [place] [address] bedtime. Medical Branch atorvastati Yes [id number] 10mg Take 0.5 Univers n 20 mg 9-29 tablets by ity of tablet 00:00: mouth at [place] [address] bedtime. Medical Branch atorvastati Yes [id number] 10mg Take 0.5 Univers n 20 mg 9-29 tablets by ity of tablet 00:00: mouth at [place] [address] bedtime. Medical Branch atorvastati Yes [id number] 10mg Take 0.5 Univers n 20 mg 9-29 tablets by ity of tablet 00:00: mouth at [place] [address] bedtime. Medical Branch atorvastati Yes [id number] 10mg Take 0.5 Univers n 20 mg 9-29 tablets by ity of tablet 00:00: mouth at [place] [address] bedtime. Medical Branch atorvastati Yes [id number] 10mg Take 0.5 Univers n 20 mg 9-29 tablets by ity of tablet 00:00: mouth at [place] [address] bedtime. Medical Branch atorvastati Yes [id number] 10mg Take 0.5 Univers n 20 mg 9-29 tablets by ity of tablet 00:00: mouth at [place] [address] bedtime. Medical Branch atorvastati Yes [id number] 10mg Take 0.5 Univers n 20 mg 9-29 tablets by ity of tablet 00:00: mouth at [place] 00 bedtime. Medical Branch atorvastati 3-0 Yes [id number] 10mg Take 0.5 Univers n 20 mg 9-29 tablets by ity of tablet 00:00: mouth at [place] 00 bedtime. Medical Branch ipratropium 3-0 Yes [id number] .5mg Inhale 2.5 Univers 0.02 % 8-17 mL every 6 ity of nebulizer 00:00: (six) [place] solution 00 hours as Medical needed for Branch Wheezing or Shortness of Breath. ipratropium 3-0 Yes [id number] .5mg Inhale 2.5 Univers 0.02 % 8-17 mL every 6 ity of nebulizer 00:00: (six) [place] solution 00 hours as Medical needed for Branch Wheezing or Shortness of Breath. ipratropium 3-0 Yes [id number] .5mg Inhale 2.5 Univers 0.02 % 8-17 mL every 6 ity of nebulizer 00:00: (six) [place] solution 00 hours as Medical needed for Branch Wheezing or Shortness of Breath. ipratropium 3-0 Yes [id number] .5mg Inhale 2.5 Univers 0.02 % 8-17 mL every 6 ity of nebulizer 00:00: (six) [place] solution 00 hours as Medical needed for Branch Wheezing or Shortness of Breath. ipratropium 3-0 Yes [id number] .5mg Inhale 2.5 Univers 0.02 % 8-17 mL every 6 ity of nebulizer 00:00: (six) [place] solution 00 hours as Medical needed for Branch Wheezing or Shortness of Breath. ipratropium 2023-0 Yes [id number] .5mg Inhale 2.5 Univers 0.02 % 8-17 mL every 6 ity of nebulizer 00:00: (six) [place] solution 00 hours as Medical needed for Branch Wheezing or Shortness of Breath. ipratropium 2023-0 Yes [id number] .5mg Inhale 2.5 Univers 0.02 % 8-17 mL every 6 ity of nebulizer 00:00: (six) [place] solution 00 hours as Medical needed for Branch Wheezing or Shortness of Breath. ipratropium 2023-0 Yes [id number] .5mg Inhale 2.5 Univers 0.02 % 8-17 mL every 6 ity of nebulizer 00:00: (six) [place] solution 00 hours as Medical needed for Branch Wheezing or Shortness of Breath. ipratropium 2023-0 Yes [id number] .5mg Inhale 2.5 Univers 0.02 % 8-17 mL every 6 ity of nebulizer 00:00: (six) [place] solution 00 hours as Medical needed for Branch Wheezing or Shortness of Breath. ipratropium 2023-0 Yes [id number] .5mg Inhale 2.5 Univers 0.02 % 8-17 mL every 6 ity of nebulizer 00:00: (six) [place] solution 00 hours as Medical needed for Branch Wheezing or Shortness of Breath. ipratropium 2023-0 Yes [id number] .5mg Inhale 2.5 Univers 0.02 % 8-17 mL every 6 ity of nebulizer 00:00: (six) [place] solution 00 hours as Medical needed for Branch Wheezing or Shortness of Breath. ipratropium 2023-0 Yes [id number] .5mg Inhale 2.5 Univers 0.02 % 8-17 mL every 6 ity of nebulizer 00:00: (six) [place] solution 00 hours as Medical needed for Branch Wheezing or Shortness of Breath. ipratropium 2023-0 Yes [id number] .5mg Inhale 2.5 Univers 0.02 % 8-17 mL every 6 ity of nebulizer 00:00: (six) [place] solution 00 hours as Medical needed for Branch Wheezing or Shortness of Breath. ipratropium 2023-0 Yes [id number] .5mg Inhale 2.5 Univers 0.02 % 8-17 mL every 6 ity of nebulizer 00:00: (six) [place] solution 00 hours as Medical needed for Branch Wheezing or Shortness of Breath. ipratropium 2023-0 Yes [id number] .5mg Inhale 2.5 Univers 0.02 % 8-17 mL every 6 ity of nebulizer 00:00: (six) [place] solution 00 hours as Medical needed for Branch Wheezing or Shortness of Breath. ipratropium 2023-0 Yes [id number] .5mg Inhale 2.5 Univers 0.02 % 8-17 mL every 6 ity of nebulizer 00:00: (six) [place] solution 00 hours as Medical needed for Branch Wheezing or Shortness of Breath. Nut.[place].Gluc 2022-0 Yes [id number] 1{box} Take 1 Box Univers .Intol,Lac- 7-27 by mouth 2 it y of Free,Soy 00:00: (two) [place] (GLUCERNA 00 times Medical THERAPEUTIC daily. Branch NUTRITION) liquid Nut.[place].Gluc 2022-0 Yes [id number] 1{box} Take 1 Box Univers .Intol,Lac- 7-27 by mouth 2 it y of Free,Soy 00:00: (two) [place] (GLUCERNA 00 times Medical THERAPEUTIC daily. Branch NUTRITION) liquid Nut.[place].Gluc 2022-0 Yes [id number] 1{box} Take 1 Box Univers .Intol,Lac- 7-27 by mouth 2 it y of Free,Soy 00:00: (two) [place] (GLUCERNA 00 times Medical THERAPEUTIC daily. Branch NUTRITION) liquid Nut.[place].Gluc 2022-0 Yes [id number] 1{box} Take 1 Box Univers .Intol,Lac- 7-27 by mouth 2 it y of Free,Soy 00:00: (two) [place] (GLUCERNA 00 times Medical THERAPEUTIC daily. Branch NUTRITION) liquid Nut.[place].Gluc 2022-0 Yes [id number] 1{box} Take 1 Box Univers .Intol,Lac- 7-27 by mouth 2 it y of Free,Soy 00:00: (two) [place] (GLUCERNA 00 times Medical THERAPEUTIC daily. Branch NUTRITION) liquid Nut.[place].Gluc 2022-0 Yes [id number] 1{box} Take 1 Box Univers .Intol,Lac- 7-27 by mouth 2 it y of Free,Soy 00:00: (two) [place] (GLUCERNA 00 times Medical THERAPEUTIC daily. Branch NUTRITION) liquid Nut.[place].Gluc 2022-0 Yes [id number] 1{box} Take 1 Box Univers .Intol,Lac- 7-27 by mouth 2 it y of Free,Soy 00:00: (two) [place] (GLUCERNA 00 times Medical THERAPEUTIC daily. Branch NUTRITION) liquid Nut.[place].Gluc 2022-0 Yes [id number] 1{box} Take 1 Box Univers .Intol,Lac- 7-27 by mouth 2 it y of Free,Soy 00:00: (two) [place] (GLUCERNA 00 times Medical THERAPEUTIC daily. Branch NUTRITION) liquid Nut.[place].Gluc 2022-0 Yes [id number] 1{box} Take 1 Box Univers .Intol,Lac- 7-27 by mouth 2 it y of Free,Soy 00:00: (two) [place] (GLUCERNA 00 times Medical THERAPEUTIC daily. Branch NUTRITION) liquid Nut.[place].Gluc 2022-0 Yes [id number] 1{box} Take 1 Box Univers .Intol,Lac- 7-27 by mouth 2 it y of Free,Soy 00:00: (two) [place] (GLUCERNA 00 times Medical THERAPEUTIC daily. Branch NUTRITION) liquid Nut.[place].Gluc 2022-0 Yes [id number] 1{box} Take 1 Box Univers .Intol,Lac- 7-27 by mouth 2 it y of Free,Soy 00:00: (two) [place] (GLUCERNA 00 times Medical THERAPEUTIC daily. Branch NUTRITION) liquid Nut.[place].Gluc 2022-0 Yes [id number] 1{box} Take 1 Box Univers .Intol,Lac- 7-27 by mouth 2 it y of Free,Soy 00:00: (two) [place] (GLUCERNA 00 times Medical THERAPEUTIC daily. Branch NUTRITION) liquid Nut.[place].Gluc 2022-0 Yes [id number] 1{box} Take 1 Box Univers .Intol,Lac- 7-27 by mouth 2 it y of Free,Soy 00:00: (two) [place] (GLUCERNA 00 times Medical THERAPEUTIC daily. Branch NUTRITION) liquid Nut.[place].Gluc 2022-0 Yes [id number] 1{box} Take 1 Box Univers .Intol,Lac- 7-27 by mouth 2 it y of Free,Soy 00:00: (two) [place] (GLUCERNA 00 times Medical THERAPEUTIC daily. Branch NUTRITION) liquid Nut.[place].Gluc 2022-0 Yes [id number] 1{box} Take 1 Box Univers .Intol,Lac- 7-27 by mouth 2 it y of Free,Soy 00:00: (two) [place] (GLUCERNA 00 times Medical THERAPEUTIC daily. Branch NUTRITION) liquid Nut.[place].Gluc 2022-0 Yes [id number] 1{box} Take 1 Box Univers .Intol,Lac- 7-27 by mouth 2 it y of Free,Soy 00:00: (two) [place] (GLUCERNA 00 times Medical THERAPEUTIC daily. Branch NUTRITION) liquid Nut.[place].Gluc 2022-0 Yes [id number] 1{box} Take 1 Box Univers .Intol,Lac- 7-27 by mouth 2 it y of Free,Soy 00:00: (two) [place] (GLUCERNA 00 times Medical THERAPEUTIC daily. Branch NUTRITION) liquid Nut.[place].Gluc 2022-0 Yes [id number] 1{box} Take 1 Box Univers .Intol,Lac- 7-27 by mouth 2 it y of Free,Soy 00:00: (two) [place] (GLUCERNA 00 times Medical THERAPEUTIC daily. Branch NUTRITION) liquid Nut.[place].Gluc 2022-0 Yes [id number] 1{box} Take 1 Box Univers .Intol,Lac- 7-27 by mouth 2 it y of Free,Soy 00:00: (two) [place] (GLUCERNA 00 times Medical THERAPEUTIC daily. Branch NUTRITION) liquid Nut.[place].Gluc 2022-0 Yes [id number] 1{box} Take 1 Box Univers .Intol,Lac- 7-27 by mouth 2 it y of Free,Soy 00:00: (two) [place] (GLUCERNA 00 times Medical THERAPEUTIC daily. Branch NUTRITION) liquid Nut.[place].Gluc 2022-0 Yes [id number] 1{box} Take 1 Box Univers .Intol,Lac- 7-27 by mouth 2 it y of Free,Soy 00:00: (two) [place] (GLUCERNA 00 times Medical THERAPEUTIC daily. Branch NUTRITION) liquid Nut.[place].Gluc 2022-0 Yes [id number] 1{box} Take 1 Box Univers .Intol,Lac- 7-27 by mouth 2 it y of Free,Soy 00:00: (two) [place] (GLUCERNA 00 times Medical THERAPEUTIC daily. Branch NUTRITION) liquid Nut.[place].Gluc 2022-0 Yes [id number] 1{box} Take 1 Box Univers .Intol,Lac- 7-27 by mouth 2 it y of Free,Soy 00:00: (two) [place] (GLUCERNA 00 times Medical THERAPEUTIC daily. Branch NUTRITION) liquid Nut.[place].Gluc 2022-0 Yes [id number] 1{box} Take 1 Box Univers .Intol,Lac- 7-27 by mouth 2 it y of Free,Soy 00:00: (two) [place] (GLUCERNA 00 times Medical THERAPEUTIC daily. Branch NUTRITION) liquid spironolact 2023-0 Yes 12.5mg Take 0.5 Univers one 25 mg 7-18 tablets by ity of tablet 00:00: mouth [address] [place] [address] (two) Medical times Branch daily. spironolact 2023-0 Yes 12.5mg Take 0.5 Univers one 25 mg 7-18 tablets by ity of tablet 00:00: mouth [address] [place] [address] (two) Medical times Branch daily. spironolact 2023-0 Yes 12.5mg Take 0.5 Univers one 25 mg 7-18 tablets by ity of tablet 00:00: mouth [address] [place] [address] (two) Medical times Branch daily. spironolact 2023-0 Yes 12.5mg Take 0.5 Univers one 25 mg 7-18 tablets by ity of tablet 00:00: [address] (two) Medical times Branch daily. spironolact 2023-0 Yes 12.5mg Take 0.5 Univers one 25 mg 7-18 tablets by ity of tablet 00:00: mouth [address] [place] [address] (two) Medical times Branch daily. spironolact 2023-0 Yes 12.5mg Take 0.5 Univers one 25 mg 7-18 tablets by ity of tablet 00:00: mouth [address] [place] [address] (two) Medical times Branch daily. spironolact 2023-0 Yes 12.5mg Take 0.5 Univers one 25 mg 7-18 tablets by ity of tablet 00:00: mouth [address] [place] [address] (two) Medical times Branch daily. spironolact 2023-0 Yes 12.5mg Take 0.5 Univers one 25 mg 7-18 tablets by ity of tablet 00:00: mouth [address] [place] [address] (two) Medical times Branch daily. spironolact 2023-0 Yes 12.5mg Take 0.5 Univers one 25 mg 7-18 tablets by ity of tablet 00:00: mouth [address] [place] [address] (two) Medical times Branch daily. spironolact 2023-0 Yes 12.5mg Take 0.5 Univers one 25 mg 7-18 tablets by ity of tablet 00:00: mouth [address] [place] [address] (two) Medical times Branch daily. spironolact 2023-0 Yes 12.5mg Take 0.5 Univers one 25 mg 7-18 tablets by ity of tablet 00:00: mouth 2 [place] (two) Medical times Branch daily. spironolact 2023-0 Yes 12.5mg Take 0.5 Univers one 25 mg 7-18 tablets by ity of tablet 00:00: mouth [address] [place] [address] (two) Medical times Branch daily. spironolact 2023-0 Yes 12.5mg Take 0.5 Univers one 25 mg 7-18 tablets by ity of tablet 00:00: mouth [address] [place] [address] (two) Medical times Branch daily. spironolact 2023-0 Yes 12.5mg Take 0.5 Univers one 25 mg 7-18 tablets by ity of tablet 00:00: mouth [address] [place] [address] (two) Medical times Branch daily. spironolact 2023-0 Yes 12.5mg Take 0.5 Univers one 25 mg 7-18 tablets by ity of tablet 00:00: mouth [address] [place] [address] (two) Medical times Branch daily. spironolact 2023-0 2023- No 12.5mg Take 0.5 Univers one 25 mg 7-18 10-23 tablets by ity of tablet 00:00: 00:00 mouth 2 [place] 00 :00 (two) Medical times Branch daily. spironolact 2023-0 2023- No 12.5mg Take 0.5 Univers one 25 mg 7-18 10-23 tablets by ity of tablet 00:00: 00:00 mouth 2 [place] 00 :00 (two) Medical times Branch daily. albuterol 2023-0 Yes [id number] 2.5mg Inhale 3 Univers 2.5 mg /3 6-27 mL every 8 ity of mL (0.083 00:00: (eight) [place] %) 00 hours as Medical nebulizer needed for Bran ch solution Wheezing or Shortness of Breath. ipratropium 2023-0 Yes [id number] .5mg Inhale 2.5 Univers 0.02 % 6-27 mL every 6 ity of nebulizer 00:00: (six) [place] solution 00 hours as Medical needed for Branch Wheezing or Shortness of Breath. furosemide 2023-0 Yes [id number] 80mg Take 2 Univers 40 mg 6-27 tablets by ity of tablet 00:00: mouth [place] 00 every Medical morning Branch and evening. benzonatate 2023-0 Yes [id number] 200mg Take 1 Univers 200 mg 6-27 capsule by ity of capsule 00:00: mouth 3 [place] 00 (three) Medical times Branch daily as needed for Cough. ferrous 2022-0 Yes [id number] 324mg Take 1 Un briana sulfate 324 6-27 tablet by ity of mg (65 mg 00:00: mouth [place] iron) EC 00 daily with Medic al tablet breakfast. Branch albuterol 2022-0 Yes [id number] 2.5mg Inhale 3 Univers 2.5 mg /3 6-27 mL every 8 ity of mL (0.083 00:00: (eight) [place] %) 00 hours as Medical nebulizer needed for Bran ch solution Wheezing or Shortness of Breath. ipratropium 2022-0 Yes [id number] .5mg Inhale 2.5 Univers 0.02 % 6-27 mL every 6 ity of nebulizer 00:00: (six) [place] solution 00 hours as Medical needed for Branch Wheezing or Shortness of Breath. furosemide 2022-0 Yes [id number] 80mg Take 2 Univers 40 mg 6-27 tablets by ity of tablet 00:00: mouth [place] 00 every Medical morning Branch and evening. benzonatate 2022-0 Yes [id number] 200mg Take 1 Univers 200 mg 6-27 capsule by ity of capsule 00:00: mouth 3 [place] 00 (three) Medical times Branch daily as needed for Cough. ferrous 2022-0 Yes [id number] 324mg Take 1 Un briana sulfate 324 6-27 tablet by ity of mg (65 mg 00:00: mouth [place] iron) EC 00 daily with Medic al tablet breakfast. Branch albuterol 2022-0 Yes [id number] 2.5mg Inhale 3 Univers 2.5 mg /3 6-27 mL every 8 ity of mL (0.083 00:00: (eight) [place] %) 00 hours as Medical nebulizer needed for Bran ch solution Wheezing or Shortness of Breath. ipratropium 2022-0 Yes [id number] .5mg Inhale 2.5 Univers 0.02 % 6-27 mL every 6 ity of nebulizer 00:00: (six) [place] solution 00 hours as Medical needed for Branch Wheezing or Shortness of Breath. furosemide 2022-0 Yes [id number] 80mg Take 2 Univers 40 mg 6-27 tablets by ity of tablet 00:00: mouth [place] 00 every Medical morning Branch and evening. benzonatate 2023-0 Yes [id number] 200mg Take 1 Univers 200 mg 6-27 capsule by [facility] of capsule 00:00: mouth 3 00 (three) Medical times Branch daily as needed for Cough. ferrous 2022-0 Yes [id number] 324mg Take 1 Un briana sulfate 324 6-27 tablet by ity of mg (65 mg 00:00: mouth [place] iron) EC 00 daily with Medic al tablet breakfast. Branch albuterol 2022-0 Yes [id number] 2.5mg Inhale 3 [facility] 2.5 mg /3 6-27 mL every 8 [facility] of mL (0.083 00:00: (eight) [place] %) 00 hours as Medical nebulizer needed for Bran ch solution Wheezing or Shortness of Breath. ipratropium 2022-0 Yes [id number] .5mg Inhale 2.5 [facility] 0.02 % 6-27 mL every 6 [facility] of nebulizer 00:00: (six) [place] solution 00 hours as Medical needed for Branch Wheezing or Shortness of Breath. furosemide 2022-0 Yes [id number] 80mg Take 2 [facility] 40 mg 6-27 tablets by ity of tablet 00:00: mouth 00 every Medical morning Branch and evening. benzonatate 2022-0 Yes [id number] 200mg Take 1 [facility] 200 mg 6-27 capsule by [facility] of capsule 00:00: mouth 3 00 (three) Medical times Branch daily as needed for Cough. ferrous 2022-0 Yes [id number] 324mg Take 1 Un briana sulfate 324 6-27 tablet by ity of mg (65 mg 00:00: mouth [place] iron) EC 00 daily with Medic al tablet breakfast. Branch albuterol 2022-0 Yes [id number] 2.5mg Inhale 3 [facility] 2.5 mg /3 6-27 mL every 8 [facility] of mL (0.083 00:00: (eight) [place] %) 00 hours as Medical nebulizer needed for Bran ch solution Wheezing or Shortness of Breath. ipratropium 2022-0 Yes [id number] .5mg Inhale 2.5 [facility] 0.02 % 6-27 mL every 6 [facility] of nebulizer 00:00: (six) [place] solution 00 hours as Medical needed for Branch Wheezing or Shortness of Breath. furosemide 2022-0 Yes [id number] 80mg Take 2 [facility] 40 mg 6-27 tablets by [facility]y of tablet 00:00: mouth [place] 00 every Medical morning Branch and evening. benzonatate 2022-0 Yes [id number] 200mg Take 1 [facility] 200 mg 6-27 capsule by [facility] of capsule 00:00: mouth 3 [place] 00 (three) Medical times Branch daily as needed for Cough. ferrous 2022-0 Yes [id number] 324mg Take 1 Un briana sulfate 324 6-27 tablet by [facility]y of mg (65 mg 00:00: mouth [place] iron) EC 00 daily with Medic al tablet breakfast. Branch albuterol 2022-0 Yes [id number] 2.5mg Inhale 3 [facility] 2.5 mg /3 6-27 mL every 8 [facility] of mL (0.083 00:00: (eight) [place] %) 00 hours as Medical nebulizer needed for Bran ch solution Wheezing or Shortness of Breath. ipratropium 2022-0 Yes [id number] .5mg Inhale 2.5 [facility] 0.02 % 6-27 mL every 6 [facility] of nebulizer 00:00: (six) [place] solution 00 hours as Medical needed for Branch Wheezing or Shortness of Breath. furosemide 2022-0 Yes [id number] 80mg Take 2 [facility] 40 mg 6-27 tablets by [facility]y of tablet 00:00: mouth [place] 00 every Medical morning Branch and evening. benzonatate 2022-0 Yes [id number] 200mg Take 1 [facility] 200 mg 6-27 capsule by [facility] of capsule 00:00: mouth 3 [place] 00 (three) Medical times Branch daily as needed for Cough. ferrous 2022-0 Yes [id number] 324mg Take 1 Un briana sulfate 324 6-27 tablet by [facility]y of mg (65 mg 00:00: mouth [place] iron) EC 00 daily with Medic al tablet breakfast. Branch albuterol 2022-0 Yes [id number] 2.5mg Inhale 3 [facility] 2.5 mg /3 6-27 mL every 8 [facility] of mL (0.083 00:00: (eight) [place] %) 00 hours as Medical nebulizer needed for Bran ch solution Wheezing or Shortness of Breath. ipratropium 2022-0 Yes [id number] .5mg Inhale 2.5 [facility] 0.02 % 6-27 mL every 6 [facility] of nebulizer 00:00: (six) [place] solution 00 hours as Medical needed for Branch Wheezing or Shortness of Breath. furosemide 2022-0 Yes [id number] 80mg Take 2 [facility] 40 mg 6-27 tablets by [facility] of tablet 00:00: mouth [place] 00 every Medical morning Branch and evening. benzonatate 2022-0 Yes [id number] 200mg Take 1 [facility] 200 mg 6-27 capsule by [facility] of capsule 00:00: mouth 3 [place] 00 (three) Medical times Branch daily as needed for Cough. ferrous 2022-0 Yes [id number] 324mg Take 1 Un briana sulfate 324 6-27 tablet by ity of mg (65 mg 00:00: mouth [place] iron) EC 00 daily with Medic al tablet breakfast. Branch albuterol 2022-0 Yes [id number] 2.5mg Inhale 3 [facility] 2.5 mg /3 6-27 mL every 8 [facility] of mL (0.083 00:00: (eight) [place] %) 00 hours as Medical nebulizer needed for Bran ch solution Wheezing or Shortness of Breath. ipratropium 2022-0 Yes [id number] .5mg Inhale 2.5 [facility] 0.02 % 6-27 mL every 6 [facility] of nebulizer 00:00: (six) [place] solution 00 hours as Medical needed for Branch Wheezing or Shortness of Breath. furosemide 2022-0 Yes [id number] 80mg Take 2 [facility] 40 mg 6-27 tablets by [facility] of tablet 00:00: mouth [place] 00 every Medical morning Branch and evening. benzonatate 2022-0 Yes [id number] 200mg Take 1 [facility] 200 mg 6-27 capsule by [facility] of capsule 00:00: mouth 3 [place] 00 (three) Medical times Branch daily as needed for Cough. ferrous 2022-0 Yes [id number] 324mg Take 1 Un briana sulfate 324 6-27 tablet by [facility]y of mg (65 mg 00:00: mouth [place] iron) EC 00 daily with Medic al tablet breakfast. Branch albuterol 2022-0 Yes [id number] 2.5mg Inhale 3 [facility] 2.5 mg /3 6-27 mL every 8 [facility] of mL (0.083 00:00: (eight) [place] %) 00 hours as Medical nebulizer needed for Bran ch solution Wheezing or Shortness of Breath. ipratropium 2022-0 Yes [id number] .5mg Inhale 2.5 [facility] 0.02 % 6-27 mL every 6 [facility] of nebulizer 00:00: (six) [place] solution 00 hours as Medical needed for Branch Wheezing or Shortness of Breath. furosemide 2022-0 Yes [id number] 80mg Take 2 [facility] 40 mg 6-27 tablets by [facility]y of tablet 00:00: mouth [place] 00 every Medical morning Branch and evening. benzonatate 2022-0 Yes [id number] 200mg Take 1 [facility] 200 mg 6-27 capsule by [facility] of capsule 00:00: mouth 3 [place] 00 (three) Medical times Branch daily as needed for Cough. ferrous 2022-0 Yes [id number] 324mg Take 1 Un briana sulfate 324 6-27 tablet by [facility]y of mg (65 mg 00:00: mouth [place] iron) EC 00 daily with Medic al tablet breakfast. Branch albuterol 2022-0 Yes [id number] 2.5mg Inhale 3 [facility] 2.5 mg /3 6-27 mL every 8 [facility] of mL (0.083 00:00: (eight) [place] %) 00 hours as Medical nebulizer needed for Bran ch solution Wheezing or Shortness of Breath. furosemide 2022-0 Yes [id number] 80mg Take 2 [facility] 40 mg 6-27 tablets by it[facility] of tablet 00:00: mouth [place] 00 every Medical morning Branch and evening. benzonatate 2022-0 Yes [id number] 200mg Take 1 [facility] 200 mg 6-27 capsule by [facility] of capsule 00:00: mouth 3 [place] 00 (three) Medical times Branch daily as needed for Cough. ferrous 2022-0 Yes [id number] 324mg Take 1 Un briana sulfate 324 6-27 tablet by [facility]y of mg (65 mg 00:00: mouth [place] iron) EC 00 daily with Medic al tablet breakfast. Branch albuterol 2022-0 Yes [id number] 2.5mg Inhale 3 [facility] 2.5 mg /3 6-27 mL every 8 [facility] of mL (0.083 00:00: (eight) [place] %) 00 hours as Medical nebulizer needed for Bran ch solution Wheezing or Shortness of Breath. furosemide 2022-0 Yes [id number] 80mg Take 2 [facility] 40 mg 6-27 tablets by ity of tablet 00:00: mouth [place] 00 every Medical morning Branch and evening. benzonatate 2022-0 Yes [id number] 200mg Take 1 [facility] 200 mg 6-27 capsule by [facility] of capsule 00:00: mouth 3 [place] (three) Medical times Branch daily as needed for Cough. ferrous 2022-0 Yes [id number] 324mg Take 1 Un briana sulfate 324 6-27 tablet by [facility]y of mg (65 mg 00:00: mouth [place] iron) EC 00 daily with Medic al tablet breakfast. Branch albuterol 2022-0 Yes [id number] 2.5mg Inhale 3 [facility] 2.5 mg /3 6-27 mL every 8 [facility] of mL (0.083 00:00: (eight) [place] %) 00 hours as Medical nebulizer needed for Bran ch solution Wheezing or Shortness of Breath. furosemide 2022-0 Yes [id number] 80mg Take 2 [facility] 40 mg 6-27 tablets by ity of tablet 00:00: mouth [place] 00 every Medical morning Branch and evening. benzonatate 2022-0 Yes [id number] 200mg Take 1 [facility] 200 mg 6-27 capsule by [facility] of capsule 00:00: mouth 3 [place] (three) Medical times Branch daily as needed for Cough. ferrous 2022-0 Yes [id number] 324mg Take 1 Un briana sulfate 324 6-27 tablet by [facility]y of mg (65 mg 00:00: mouth [place] iron) EC 00 daily with Medic al tablet breakfast. Branch albuterol 2022-0 Yes [id number] 2.5mg Inhale 3 [facility] 2.5 mg /3 6-27 mL every 8 [facility] of mL (0.083 00:00: (eight) [place] %) 00 hours as Medical nebulizer needed for Bran ch solution Wheezing or Shortness of Breath. furosemide 2022-0 Yes [id number] 80mg Take 2 [facility] 40 mg 6-27 tablets by ity of tablet 00:00: mouth [place] 00 every Medical morning Branch and evening. benzonatate 2022-0 Yes [id number] 200mg Take 1 [facility] 200 mg 6-27 capsule by [facility] of capsule 00:00: mouth 3 [place] 00 (three) Medical times Branch daily as needed for Cough. ferrous 2022-0 Yes [id number] 324mg Take 1 Un briana sulfate 324 6-27 tablet by [facility]y of mg (65 mg 00:00: mouth [place] iron) EC 00 daily with Medic al tablet breakfast. Branch albuterol 2022-0 Yes [id number] 2.5mg Inhale 3 [facility] 2.5 mg /3 6-27 mL every 8 [facility] of mL (0.083 00:00: (eight) [place] %) 00 hours as Medical nebulizer needed for Bran ch solution Wheezing or Shortness of Breath. furosemide 2022-0 Yes [id number] 80mg Take 2 [facility] 40 mg 6-27 tablets by it[facility] of tablet 00:00: mouth [place] 00 every Medical morning Branch and evening. benzonatate 2022-0 Yes [id number] 200mg Take 1 [facility] 200 mg 6-27 capsule by ity of capsule 00:00: mouth 3 [place] 00 (three) Medical times Branch daily as needed for Cough. ferrous 2022-0 Yes [id number] 324mg Take 1 Un briana sulfate 324 6-27 tablet by ity of mg (65 mg 00:00: mouth [place] iron) EC 00 daily with Medic al tablet breakfast. Branch albuterol 2022-0 Yes [id number] 2.5mg Inhale 3 [facility] 2.5 mg /3 6-27 mL every 8 [facility]y of mL (0.083 00:00: (eight) [place] %) 00 hours as Medical nebulizer needed for Bran ch solution Wheezing or Shortness of Breath. furosemide 2022-0 Yes [id number] 80mg Take 2 [facility] 40 mg 6-27 tablets by ity of tablet 00:00: mouth [place] 00 every Medical morning Branch and evening. benzonatate 3-0 Yes [id number] 200mg Take 1 [facility] 200 mg 6-27 capsule by [facility]y of capsule 00:00: mouth 3 [place] 00 (three) Medical times Branch daily as needed for Cough. ferrous 2022-0 Yes [id number] 324mg Take 1 Un briana sulfate 324 6-27 tablet by ity of mg (65 mg 00:00: mouth [place] iron) EC 00 daily with Medic al tablet breakfast. Branch albuterol 2022-0 Yes [id number] 2.5mg Inhale 3 [facility] 2.5 mg /3 6-27 mL every 8 [facility]y of mL (0.083 00:00: (eight) [place] %) 00 hours as Medical nebulizer needed for Bran ch solution Wheezing or Shortness of Breath. furosemide 2022-0 Yes [id number] 80mg Take 2 [facility] 40 mg 6-27 tablets by ity of tablet 00:00: mouth [place] 00 every Medical morning Branch and evening. benzonatate 2022-0 Yes [id number] 200mg Take 1 [facility] 200 mg 6-27 capsule by [facility]y of capsule 00:00: mouth 3 [place] 00 (three) Medical times Branch daily as needed for Cough. ferrous 2022-0 Yes [id number] 324mg Take 1 Un briana sulfate 324 6-27 tablet by ity of mg (65 mg 00:00: mouth [place] iron) EC 00 daily with Medic al tablet breakfast. Branch albuterol 2022-0 Yes [id number] 2.5mg Inhale 3 [facility] 2.5 mg /3 6-27 mL every 8 [facility]y of mL (0.083 00:00: (eight) [place] %) 00 hours as Medical nebulizer needed for Bran ch solution Wheezing or Shortness of Breath. furosemide 2022-0 Yes [id number] 80mg Take 2 [facility] 40 mg 6-27 tablets by ity of tablet 00:00: mouth [place] 00 every Medical morning Branch and evening. benzonatate 2022-0 Yes [id number] 200mg Take 1 [facility] 200 mg 6-27 capsule by ity of capsule 00:00: mouth 3 00 (three) Medical times Branch daily as needed for Cough. ferrous 2022-0 Yes [id number] 324mg Take 1 Un briana sulfate 324 6-27 tablet by ity of mg (65 mg 00:00: mouth [place] iron) EC 00 daily with Medic al tablet breakfast. Branch albuterol 2022-0 Yes [id number] 2.5mg Inhale 3 [facility] 2.5 mg /3 6-27 mL every 8 ity of mL (0.083 00:00: (eight) [place] %) 00 hours as Medical nebulizer needed for Bran ch solution Wheezing or Shortness of Breath. furosemide 2022-0 Yes [id number] 80mg Take 2 [facility] 40 mg 6-27 tablets by ity of tablet 00:00: mouth [place] 00 every Medical morning Branch and evening. benzonatate 2022-0 Yes [id number] 200mg Take 1 [facility] 200 mg 6-27 capsule by ity of capsule 00:00: mouth 3 [place] 00 (three) Medical times Branch daily as needed for Cough. ferrous 2022-0 Yes [id number] 324mg Take 1 Un briana sulfate 324 6-27 tablet by ity of mg (65 mg 00:00: mouth [place] iron) EC 00 daily with Medic al tablet breakfast. Branch albuterol 2022-0 Yes [id number] 2.5mg Inhale 3 [facility] 2.5 mg /3 6-27 mL every 8 ity of mL (0.083 00:00: (eight) [place] %) 00 hours as Medical nebulizer needed for Bran ch solution Wheezing or Shortness of Breath. furosemide 2022-0 Yes [id number] 80mg Take 2 [facility] 40 mg 6-27 tablets by ity of tablet 00:00: mouth [place] 00 every Medical morning Branch and evening. benzonatate 2022-0 Yes [id number] 200mg Take 1 [facility] 200 mg 6-27 capsule by ity of capsule 00:00: mouth 3 [place] 00 (three) Medical times Branch daily as needed for Cough. ferrous 2022-0 Yes [id number] 324mg Take 1 Un briana sulfate 324 6-27 tablet by ity of mg (65 mg 00:00: mouth [place] iron) EC 00 daily with Medic al tablet breakfast. Branch albuterol 2022-0 Yes [id number] 2.5mg Inhale 3 [facility] 2.5 mg /3 6-27 mL every 8 ity of mL (0.083 00:00: (eight) [place] %) 00 hours as Medical nebulizer needed for Bran ch solution Wheezing or Shortness of Breath. furosemide 2022-0 Yes [id number] 80mg Take 2 [facility] 40 mg 6-27 tablets by ity of tablet 00:00: mouth [place] 00 every Medical morning Branch and evening. benzonatate 2022-0 Yes [id number] 200mg Take 1 [facility] 200 mg 6-27 capsule by ity of capsule 00:00: mouth 3 [place] 00 (three) Medical times Branch daily as needed for Cough. ferrous 2022-0 Yes [id number] 324mg Take 1 Un briana sulfate 324 6-27 tablet by ity of mg (65 mg 00:00: mouth [place] iron) EC 00 daily with Medic al tablet breakfast. Branch albuterol 2022-0 Yes [id number] 2.5mg Inhale 3 [facility] 2.5 mg /3 6-27 mL every 8 ity of mL (0.083 00:00: (eight) [place] %) 00 hours as Medical nebulizer needed for Bran ch solution Wheezing or Shortness of Breath. furosemide 2022-0 Yes [id number] 80mg Take 2 [facility] 40 mg 6-27 tablets by ity of tablet 00:00: mouth [place] 00 every Medical morning Branch and evening. benzonatate 2022-0 Yes [id number] 200mg Take 1 [facility] 200 mg 6-27 capsule by ity of capsule 00:00: mouth 3 [place] 00 (three) Medical times Branch daily as needed for Cough. ferrous 2022-0 Yes [id number] 324mg Take 1 Un briana sulfate 324 6-27 tablet by ity of mg (65 mg 00:00: mouth [place] iron) EC 00 daily with Medic al tablet breakfast. Branch albuterol 2022-0 Yes [id number] 2.5mg Inhale 3 [facility] 2.5 mg /3 6-27 mL every 8 ity of mL (0.083 00:00: (eight) [place] %) 00 hours as Medical nebulizer needed for Bran ch solution Wheezing or Shortness of Breath. furosemide 2022-0 Yes [id number] 80mg Take 2 [facility] 40 mg 6-27 tablets by ity of tablet 00:00: mouth [place] 00 every Medical morning Branch and evening. benzonatate 2022-0 Yes [id number] 200mg Take 1 [facility] 200 mg 6-27 capsule by ity of capsule 00:00: mouth 3 [place] 00 (three) Medical times Branch daily as needed for Cough. ferrous 2022-0 Yes [id number] 324mg Take 1 Un briana sulfate 324 6-27 tablet by ity of mg (65 mg 00:00: mouth [place] iron) EC 00 daily with Medic al tablet breakfast. Branch albuterol 2022-0 Yes [id number] 2.5mg Inhale 3 [facility] 2.5 mg /3 6-27 mL every 8 ity of mL (0.083 00:00: (eight) [place] %) 00 hours as Medical nebulizer needed for Bran ch solution Wheezing or Shortness of Breath. furosemide 2022-0 Yes [id number] 80mg Take 2 [facility] 40 mg 6-27 tablets by ity of tablet 00:00: mouth [place] 00 every Medical morning Branch and evening. benzonatate 2022-0 Yes [id number] 200mg Take 1 [facility] 200 mg 6-27 capsule by ity of capsule 00:00: mouth 3 [place] 00 (three) Medical times Branch daily as needed for Cough. ferrous 2022-0 Yes [id number] 324mg Take 1 Un briana sulfate 324 6-27 tablet by ity of mg (65 mg 00:00: mouth [place] iron) EC 00 daily with Medic al tablet breakfast. Branch albuterol 2022-0 Yes [id number] 2.5mg Inhale 3 [facility] 2.5 mg /3 6-27 mL every 8 ity of mL (0.083 00:00: (eight) [place] %) 00 hours as Medical nebulizer needed for Bran ch solution Wheezing or Shortness of Breath. furosemide 2022-0 Yes [id number] 80mg Take 2 [facility] 40 mg 6-27 tablets by ity of tablet 00:00: mouth [place] 00 every Medical morning Branch and evening. benzonatate 2022-0 Yes [id number] 200mg Take 1 [facility] 200 mg 6-27 capsule by ity of capsule 00:00: mouth 3 [place] 00 (three) Medical times Branch daily as needed for Cough. ferrous 2022-0 Yes [id number] 324mg Take 1 Un briana sulfate 324 6-27 tablet by ity of mg (65 mg 00:00: mouth [place] iron) EC 00 daily with Medic al tablet breakfast. Branch albuterol 2022-0 Yes [id number] 2.5mg Inhale 3 [facility] 2.5 mg /3 6-27 mL every 8 ity of mL (0.083 00:00: (eight) [place] %) 00 hours as Medical nebulizer needed for Bran ch solution Wheezing or Shortness of Breath. furosemide 2022-0 Yes [id number] 80mg Take 2 [facility] 40 mg 6-27 tablets by ity of tablet 00:00: mouth [place] 00 every Medical morning Branch and evening. benzonatate 2022-0 Yes [id number] 200mg Take 1 [facility] 200 mg 6-27 capsule by ity of capsule 00:00: mouth 3 [place] 00 (three) Medical times Branch daily as needed for Cough. ferrous 2022-0 Yes [id number] 324mg Take 1 Un briana sulfate 324 6-27 tablet by ity of mg (65 mg 00:00: mouth [place] iron) EC 00 daily with Medic al tablet breakfast. Branch albuterol 2022-0 Yes [id number] 2.5mg Inhale 3 [facility] 2.5 mg /3 6-27 mL every 8 ity of mL (0.083 00:00: (eight) [place] %) 00 hours as Medical nebulizer needed for Bran ch solution Wheezing or Shortness of Breath. furosemide 2022-0 Yes [id number] 80mg Take 2 [facility] 40 mg 6-27 tablets by ity of tablet 00:00: mouth [place] 00 every Medical morning Branch and evening. benzonatate 2022-0 Yes [id number] 200mg Take 1 [facility] 200 mg 6-27 capsule by ity of capsule 00:00: mouth 3 [place] 00 (three) Medical times Branch daily as needed for Cough. ferrous 2022-0 Yes [id number] 324mg Take 1 Un briana sulfate 324 6-27 tablet by ity of mg (65 mg 00:00: mouth [place] iron) EC 00 daily with Medic al tablet breakfast. Branch albuterol 2022-0 Yes [id number] 2.5mg Inhale 3 [facility] 2.5 mg /3 6-27 mL every 8 [facility]y of mL (0.083 00:00: (eight) [place] %) 00 hours as Medical nebulizer needed for Bran ch solution Wheezing or Shortness of Breath. benzonatate 2022-0 Yes [id number] 200mg Take 1 [facility] 200 mg 6-27 capsule by ity of capsule 00:00: mouth 3 [place] 00 (three) Medical times Branch daily as needed for Cough. ferrous 2022-0 Yes [id number] 324mg Take 1 Un briana sulfate 324 6-27 tablet by ity of mg (65 mg 00:00: mouth [place] iron) EC 00 daily with Medic al tablet breakfast. Branch albuterol 2022-0 Yes [id number] 2.5mg Inhale 3 [facility] 2.5 mg /3 6-27 mL every 8 [facility]y of mL (0.083 00:00: (eight) [place] %) 00 hours as Medical nebulizer needed for Bran ch solution Wheezing or Shortness of Breath. benzonatate 2022-0 Yes [id number] 200mg Take 1 [facility] 200 mg 6-27 capsule by [facility]y of capsule 00:00: mouth 3 [place] 00 (three) Medical times Branch daily as needed for Cough. ferrous 2022-0 Yes [id number] 324mg Take 1 Un briana sulfate 324 6-27 tablet by ity of mg (65 mg 00:00: mouth [place] iron) EC 00 daily with Medic al tablet breakfast. Branch furosemide 2022-0 2022- No [id number] 80mg Take 2 [facility] 40 mg 6-27 10-23 tablets by ity of tablet 00:00: 00:00 mouth [place] 00 :00 every Medical morning Branch and evening. furosemide 2022-2022- No [id number] 80mg Take 2 [facility] 40 mg 6-27 10-23 tablets by ity of tablet 00:00: 00:00 mouth [place] 00 :00 every Medical morning Branch and evening. carvediloL 2022- No 3.125mg Take 1 [facility] 3.125 mg 6-27 - tablet by ity o f tablet 00:00: 04:59 mouth 2 [place] 00 :00 (two) Medical times Branch daily with meals for 90 days. carvediloL 2022- No 3.125mg Take 1 [facility] 3.125 mg 6-27 11-08 tablet by ity o f tablet 00:00: 04:59 mouth 2 [place] 00 :00 (two) Medical times Branch daily with meals for 90 days. carvediloL 2022- No 3.125mg Take 1 [facility] 3.125 mg 6-27 11-08 tablet by ity o f tablet 00:00: 04:59 mouth 2 [place] 00 :00 (two) Medical times Branch daily with meals for 90 days. carvediloL 2022- No 3.125mg Take 1 [facility] 3.125 mg 6-27 11-08 tablet by ity o f tablet 00:00: 04:59 mouth 2 [place] 00 :00 (two) Medical times Branch daily with meals for 90 days. carvediloL 2022- No 3.125mg Take 1 [facility] 3.125 mg 6-27 11-08 tablet by ity o f tablet 00:00: 04:59 mouth 2 [place] 00 :00 (two) Medical times Branch daily with meals for 90 days. carvediloL 2022- No 3.125mg Take 1 [facility] 3.125 mg 6-27 11-08 tablet by ity o f tablet 00:00: [...] daily with meals for 90 days. carvediloL 3-0 2023- No 3.125mg Take 1 [facility] 3.125 mg 6-27 -26 tablet by ity o f tablet 00:00: 04:59 mouth 2 [place] 00 :00 (two) Medical times Branch daily with meals for 90 days. carvediloL 3-0 2023- No 3.125mg Take 1 [facility] 3.125 mg - 09-26 tablet by ity o f tablet 00:00: 04:59 mouth 2 [place] 00 :00 (two) Medical times Branch daily with meals for 90 days. ipratropium 2023-0 2023- No [id number] .5mg Inhale 2.5 [facility] 0.02 % 6-27 08-17 mL every 6 [facility]y of nebulizer 00:00: 00:00 (six) [place] solution 00 :00 hours as Medical needed for Branch Wheezing or Shortness of Breath. ipratropium 2023-0 2023- No [id number] .5mg Inhale 2.5 [facility] 0.02 % 6-27 08-17 mL every 6 [facility]y of nebulizer 00:00: 00:00 (six) [place] solution 00 :00 hours as Medical needed for Branch Wheezing or Shortness of Breath. ipratropium 2023-0 2023- No [id number] .5mg Inhale 2.5 [facility] 0.02 % 6-27 08-17 mL every 6 [facility]y of nebulizer 00:00: 00:00 (six) [place] solution 00 :00 hours as Medical needed for Branch Wheezing or Shortness of Breath. furosemide 2023-0 Yes [id number] 80mg Take 2 [facility] 40 mg 5-16 tablets by ity of tablet 00:00: mouth [place] 00 every Medical morning Branch and evening. furosemide 2023-0 Yes [id number] 80mg Take 2 [facility] 40 mg 5-16 tablets by ity of tablet 00:00: mouth [place] 00 every Medical morning Branch and evening. furosemide 2023-0 Yes [id number] 80mg Take 2 [facility] 40 mg 5-16 tablets by ity of tablet 00:00: mouth [place] 00 every Medical morning Branch and evening. furosemide 2023-0 Yes [id number] 80mg Take 2 [facility] 40 mg 5-16 tablets by ity of tablet 00:00: mouth [place] 00 every Medical morning Branch and evening. furosemide 2023-0 Yes [id number] 80mg Take 2 [facility] 40 mg 5-16 tablets by ity of tablet 00:00: mouth [place] 00 every Medical morning Branch and evening. furosemide 2023-0 Yes [id number] 80mg Take 2 [facility] 40 mg 5-16 tablets by ity of tablet 00:00: mouth [place] 00 every Medical morning Branch and evening. furosemide 2023-0 Yes [id number] 80mg Take 2 [facility] 40 mg 5-16 tablets by ity of tablet 00:00: mouth [place] 00 every Medical morning Branch and evening. furosemide 2022-0 Yes [id number] 80mg Take 2 [facility] 40 mg 5-16 tablets by ity of tablet 00:00: mouth [place] 00 every Medical morning Branch and evening. furosemide 2022-0 Yes [id number] 80mg Take 2 [facility] 40 mg 5-16 tablets by ity of tablet 00:00: mouth [place] 00 every Medical morning Branch and evening. furosemide 2022-0 Yes [id number] 80mg Take 2 [facility] 40 mg 5-16 tablets by ity of tablet 00:00: mouth [place] 00 every Medical morning Branch and evening. furosemide 2022-0 Yes [id number] 80mg Take 2 [facility] 40 mg 5-16 tablets by ity of tablet 00:00: mouth [place] 00 every Medical morning Branch and evening. furosemide 2022-0 Yes [id number] 80mg Take 2 [facility] 40 mg 5-16 tablets by ity of tablet 00:00: mouth [place] 00 every Medical morning Branch and evening. furosemide 2022-0 Yes [id number] 80mg Take 2 [facility] 40 mg 5-16 tablets by ity of tablet 00:00: mouth [place] 00 every Medical morning Branch and evening. furosemide 2022-0 Yes [id number] 80mg Take 2 [facility] 40 mg 5-16 tablets by ity of tablet 00:00: mouth [place] 00 every Medical morning Branch and evening. furosemide 2022-0 2022- No [id number] 80mg Take 2 [facility] 40 mg 5-16 06-27 tablets by [facility]y of tablet 00:00: 00:00 mouth [place] 00 :00 every Medical morning Branch and evening. furosemide 2022-0 2022- No [id number] 80mg Take 2 [facility] 40 mg 5-16 06-27 tablets by ity of tablet 00:00: 00:00 mouth [place] 00 :00 every Medical morning Branch and evening. furosemide 2022-0 2022- No [id number] 80mg Take 2 [facility] 40 mg 5-16 06-27 tablets by ity of tablet 00:00: 00:00 mouth [place] 00 :00 every Medical morning Branch and evening. regadenoson 2022-2022- No [id number] .4mg 0.4 mg, IV [facility] (LEXISCAN) 06-23 Push, ity of injection 17:00: 15:51 ONCE, 1 [place] 0.4 [place] 00 :00 dose, On [facility] [facility] 06/23/22 at 1200, Routine
member of parliament approving Restricted medication : CECI LO tc 2022- No [id number] 43.8mCi 43.8 Unive rs 99m-tetrofo 06-23 [facility] 15:30: 15:19 , [place] ([facility]) 00 :00 Intravenou Medi angelica injection s, ONCE, 1 Bran ch 43.8 dose, On Located within [facility] 06/23/22 at 1030, Routine tc 2022- No [id number] 16.5mCi 16.5 Unive rs 99m-tetrofo 06-23 [facility] i ty of [facility] 13:45: 13:45 , [place] ([facility]) 00 :00 Intravenou Medi angelica injection s, ONCE, 1 Bran ch 16.5 dose, On Located within [facility] 06/23/22 at 0845, Routine furosemide 2022-0 Yes [id number] 80mg Take 2 [facility] 40 mg 5-09 tablets by ity of tablet 00:00: mouth [place] 00 every Medical morning Branch and evening. furosemide 2022-0 Yes [id number] 80mg Take 2 [facility] 40 mg 5-09 tablets by ity of tablet 00:00: mouth [place] 00 every Medical morning Branch and evening. furosemide 2023-0 Yes [id number] 80mg Take 2 [facility] 40 mg 5-09 tablets by ity of tablet 00:00: mouth [place] 00 every Medical morning Branch and evening. furosemide 2023-0 Yes [id number] 80mg Take 2 [facility] 40 mg 5-09 tablets by ity of tablet 00:00: mouth [place] 00 every Medical morning Branch and evening. furosemide 2023-0 Yes [id number] 80mg Take 2 [facility] 40 mg 5-09 tablets by ity of tablet 00:00: mouth [place] 00 every Medical morning Branch and evening. furosemide 2023-0 Yes [id number] 80mg Take 2 [facility] 40 mg 5-09 tablets by ity of tablet 00:00: mouth [place] 00 every Medical morning Branch and evening. furosemide 202-0 2022- No [id number] 80mg Take 2 [facility] 40 mg 5-09 05-16 tablets by ity of tablet 00:00: 00:00 mouth [place] 00 :00 every Medical morning Branch and evening. furosemide 2022-0 2023- No [id number] 80mg Take 2 [facility] 40 mg 5-09 05-16 tablets by ity of tablet 00:00: 00:00 mouth [place] 00 :00 every Medical morning Branch and evening. atorvastati 2022-0 Yes [id number] 20mg Take 1 [facility] n 20 mg 4-28 tablet by ity of tablet 00:00: mouth at [place] 00 bedtime. Medical Branch furosemide 2022-0 Yes [id number] 40mg Take 1 [facility] 40 mg 4-28 tablet by ity of tablet 00:00: mouth [place] 00 every Medical morning Branch and evening. losartan 50 2022-0 Yes [id number] 25mg Take 0.5 [facility] mg tablet 4-28 tablets by ity of 00:00: mouth [place] 00 every day Medical at 1200 Branch (noon). ipratropium 2022-0 Yes [id number] .5mg Inhale 2.5 [facility] 0.02 % 4-28 mL every 6 ity of nebulizer 00:00: (six) [place] solution 00 hours as Medical needed for Branch Wheezing or Shortness of Breath. albuterol 2022-0 Yes [id number] 2.5mg Inhale 3 [facility] 2.5 mg /3 4-28 mL every 8 ity of mL (0.083 00:00: (eight) [place] %) 00 hours as Medical nebulizer needed for Bran ch solution Wheezing or Shortness of Breath. atorvastati 2022-0 Yes [id number] 20mg Take 1 [facility] n 20 mg 4-28 tablet by ity of tablet 00:00: mouth at [place] 00 bedtime. Medical Branch furosemide 2022-0 Yes [id number] 40mg Take 1 [facility] 40 mg 4-28 tablet by ity of tablet 00:00: mouth [place] 00 every Medical morning Branch and evening. losartan 50 2022-0 Yes [id number] 25mg Take 0.5 [facility] mg tablet 4-28 tablets by ity of 00:00: mouth [place] 00 every day Medical at 1200 Branch (noon). ipratropium 2022-0 Yes [id number] .5mg Inhale 2.5 [facility] 0.02 % 4-28 mL every 6 ity of nebulizer 00:00: (six) [place] solution 00 hours as Medical needed for Branch Wheezing or Shortness of Breath. albuterol 3-0 Yes [id number] 2.5mg Inhale 3 [facility] 2.5 mg /3 4-28 mL every 8 ity of mL (0.083 00:00: (eight) [place] %) 00 hours as Medical nebulizer needed for Bran ch solution Wheezing or Shortness of Breath. atorvastati 2022-0 Yes [id number] 20mg Take 1 [facility] n 20 mg 4-28 tablet by ity of tablet 00:00: mouth at [place] 00 bedtime. Medical Branch furosemide 2022-0 Yes [id number] 40mg Take 1 [facility] 40 mg 4-28 tablet by ity of tablet 00:00: mouth [place] 00 every Medical morning Branch and evening. losartan 50 2022-0 Yes [id number] 25mg Take 0.5 [facility] mg tablet 4-28 tablets by ity of 00:00: mouth [place] 00 every day Medical at 1200 Branch (noon). ipratropium 3-0 Yes [id number] .5mg Inhale 2.5 [facility] 0.02 % 4-28 mL every 6 ity of nebulizer 00:00: (six) [place] solution 00 hours as Medical needed for Branch Wheezing or Shortness of Breath. albuterol 2022-0 Yes [id number] 2.5mg Inhale 3 [facility] 2.5 mg /3 4-28 mL every 8 ity of mL (0.083 00:00: (eight) [place] %) 00 hours as Medical nebulizer needed for Bran ch solution Wheezing or Shortness of Breath. atorvastati 2022-0 Yes [id number] 20mg Take 1 [facility] n 20 mg 4-28 tablet by ity of tablet 00:00: mouth at [place] 00 bedtime. Medical Branch furosemide 3-0 Yes [id number] 40mg Take 1 [facility] 40 mg 4-28 tablet by ity of tablet 00:00: mouth [place] 00 every Medical morning Branch and evening. losartan 50 3-0 Yes [id number] 25mg Take 0.5 [facility] mg tablet 4-28 tablets by ity of 00:00: mouth [place] 00 every day Medical at 1200 Branch (noon). ipratropium 2023-0 Yes [id number] .5mg Inhale 2.5 [facility] 0.02 % 4-28 mL every 6 ity of nebulizer 00:00: (six) [place] solution 00 hours as Medical needed for Branch Wheezing or Shortness of Breath. albuterol 2023-0 Yes [id number] 2.5mg Inhale 3 [facility] 2.5 mg /3 4-28 mL every 8 ity of mL (0.083 00:00: (eight) [place] %) 00 hours as Medical nebulizer needed for Bran ch solution Wheezing or Shortness of Breath. atorvastati 2022-0 Yes [id number] 20mg Take 1 [facility] n 20 mg 4-28 tablet by ity of tablet 00:00: mouth at [place] 00 bedtime. Medical Branch furosemide 2022-0 Yes [id number] 40mg Take 1 [facility] 40 mg 4-28 tablet by ity of tablet 00:00: mouth [place] 00 every Medical morning Branch and evening. losartan 50 2022-0 Yes [id number] 25mg Take 0.5 [facility] mg tablet 4-28 tablets by ity of 00:00: mouth [place] 00 every day Medical at 1200 Branch (noon). ipratropium 2022-0 Yes [id number] .5mg Inhale 2.5 [facility] 0.02 % 4-28 mL every 6 ity of nebulizer 00:00: (six) [place] solution 00 hours as Medical needed for Branch Wheezing or Shortness of Breath. albuterol 2022-0 Yes [id number] 2.5mg Inhale 3 [facility] 2.5 mg /3 4-28 mL every 8 ity of mL (0.083 00:00: (eight) [place] %) 00 hours as Medical nebulizer needed for Bran ch solution Wheezing or Shortness of Breath. atorvastati 2022-0 Yes [id number] 20mg Take 1 [facility] n 20 mg 4-28 tablet by ity of tablet 00:00: mouth at [place] 00 bedtime. Medical Branch furosemide 3-0 Yes [id number] 40mg Take 1 [facility] 40 mg 4-28 tablet by ity of tablet 00:00: mouth [place] 00 every Medical morning Branch and evening. losartan 50 2022-0 Yes [id number] 25mg Take 0.5 [facility] mg tablet 4-28 tablets by ity of 00:00: mouth [place] 00 every day Medical at 1200 Branch (noon). ipratropium 3-0 Yes [id number] .5mg Inhale 2.5 [facility] 0.02 % 4-28 mL every 6 ity of nebulizer 00:00: (six) [place] solution 00 hours as Medical needed for Branch Wheezing or Shortness of Breath. albuterol 2022-0 Yes [id number] 2.5mg Inhale 3 [facility] 2.5 mg /3 4-28 mL every 8 ity of mL (0.083 00:00: (eight) [place] %) 00 hours as Medical nebulizer needed for Bran ch solution Wheezing or Shortness of Breath. atorvastati 2022-0 Yes [id number] 20mg Take 1 [facility] n 20 mg 4-28 tablet by ity of tablet 00:00: mouth at [place] 00 bedtime. Medical Branch furosemide 2022-0 Yes [id number] 40mg Take 1 [facility] 40 mg 4-28 tablet by ity of tablet 00:00: mouth [place] 00 every Medical morning Branch and evening. losartan 50 2022-0 Yes [id number] 25mg Take 0.5 [facility] mg tablet 4-28 tablets by ity of 00:00: mouth [place] 00 every day Medical at 1200 Branch (noon). ipratropium 2022-0 Yes [id number] .5mg Inhale 2.5 [facility] 0.02 % 4-28 mL every 6 ity of nebulizer 00:00: (six) [place] solution 00 hours as Medical needed for Branch Wheezing or Shortness of Breath. albuterol 2022-0 Yes [id number] 2.5mg Inhale 3 [facility] 2.5 mg /3 4-28 mL every 8 ity of mL (0.083 00:00: (eight) [place] %) 00 hours as Medical nebulizer needed for Bran ch solution Wheezing or Shortness of Breath. atorvastati 2022-0 Yes [id number] 20mg Take 1 [facility] n 20 mg 4-28 tablet by ity of tablet 00:00: mouth at [place] 00 bedtime. Medical Branch furosemide 2022-0 Yes [id number] 40mg Take 1 [facility] 40 mg 4-28 tablet by ity of tablet 00:00: mouth [place] 00 every Medical morning Branch and evening. losartan 50 2022-0 Yes [id number] 25mg Take 0.5 [facility] mg tablet 4-28 tablets by ity of 00:00: mouth [place] 00 every day Medical at 1200 Branch (noon). ipratropium 2023-0 Yes [id number] .5mg Inhale 2.5 [facility] 0.02 % 4-28 mL every 6 ity of nebulizer 00:00: (six) [place] solution 00 hours as Medical needed for Branch Wheezing or Shortness of Breath. albuterol 2022-0 Yes [id number] 2.5mg Inhale 3 [facility] 2.5 mg /3 4-28 mL every 8 ity of mL (0.083 00:00: (eight) [place] %) 00 hours as Medical nebulizer needed for Bran ch solution Wheezing or Shortness of Breath. atorvastati 2022-0 Yes [id number] 20mg Take 1 [facility] n 20 mg 4-28 tablet by ity of tablet 00:00: mouth at [place] 00 bedtime. Medical Branch furosemide 2022-0 Yes [id number] 40mg Take 1 [facility] 40 mg 4-28 tablet by ity of tablet 00:00: mouth [place] 00 every Medical morning Branch and evening. losartan 50 2022-0 Yes [id number] 25mg Take 0.5 [facility] mg tablet 4-28 tablets by ity of 00:00: mouth [place] 00 every day Medical at 1200 Branch (noon). ipratropium 2022-0 Yes [id number] .5mg Inhale 2.5 [facility] 0.02 % 4-28 mL every 6 ity of nebulizer 00:00: (six) [place] solution 00 hours as Medical needed for Branch Wheezing or Shortness of Breath. albuterol 2022-0 Yes [id number] 2.5mg Inhale 3 [facility] 2.5 mg /3 4-28 mL every 8 ity of mL (0.083 00:00: (eight) [place] %) 00 hours as Medical nebulizer needed for Bran ch solution Wheezing or Shortness of Breath. atorvastati 2022-0 Yes [id number] 20mg Take 1 [facility] n 20 mg 4-28 tablet by ity of tablet 00:00: mouth at [place] 00 bedtime. Medical Branch furosemide 2022-0 Yes [id number] 40mg Take 1 [facility] 40 mg 4-28 tablet by ity of tablet 00:00: mouth [place] 00 every Medical morning Branch and evening. losartan 50 2022-0 Yes [id number] 25mg Take 0.5 [facility] mg tablet 4-28 tablets by ity of 00:00: mouth [place] 00 every day Medical at 1200 Branch (noon). ipratropium 2023-0 Yes [id number] .5mg Inhale 2.5 [facility] 0.02 % 4-28 mL every 6 ity of nebulizer 00:00: (six) [place] solution 00 hours as Medical needed for Branch Wheezing or Shortness of Breath. albuterol 2023-0 Yes [id number] 2.5mg Inhale 3 [facility] 2.5 mg /3 4-28 mL every 8 ity of mL (0.083 00:00: (eight) [place] %) 00 hours as Medical nebulizer needed for Bran ch solution Wheezing or Shortness of Breath. atorvastati 2022-0 Yes [id number] 20mg Take 1 [facility] n 20 mg 4-28 tablet by ity of tablet 00:00: mouth at [place] 00 bedtime. Medical Branch furosemide 2022-0 Yes [id number] 40mg Take 1 [facility] 40 mg 4-28 tablet by ity of tablet 00:00: mouth [place] 00 every Medical morning Branch and evening. losartan 50 2022-0 Yes [id number] 25mg Take 0.5 [facility] mg tablet 4-28 tablets by ity of 00:00: mouth [place] 00 every day Medical at 1200 Branch (noon). ipratropium 3-0 Yes [id number] .5mg Inhale 2.5 [facility] 0.02 % 4-28 mL every 6 ity of nebulizer 00:00: (six) [place] solution 00 hours as Medical needed for Branch Wheezing or Shortness of Breath. albuterol 3-0 Yes [id number] 2.5mg Inhale 3 [facility] 2.5 mg /3 4-28 mL every 8 ity of mL (0.083 00:00: (eight) [place] %) 00 hours as Medical nebulizer needed for Bran ch solution Wheezing or Shortness of Breath. atorvastati 2022-0 Yes [id number] 20mg Take 1 [facility] n 20 mg 4-28 tablet by ity of tablet 00:00: mouth at [place] 00 bedtime. Medical Branch furosemide 2022-0 Yes [id number] 40mg Take 1 [facility] 40 mg 4-28 tablet by ity of tablet 00:00: mouth [place] 00 every Medical morning Branch and evening. losartan 50 2022-0 Yes [id number] 25mg Take 0.5 [facility] mg tablet 4-28 tablets by ity of 00:00: mouth [place] 00 every day Medical at [address] [place] (noon). ipratropium 2023-0 Yes [id number] .5mg Inhale 2.5 [facility] 0.02 % 4-28 mL every 6 ity of nebulizer 00:00: (six) [place] solution 00 hours as Medical needed for Branch Wheezing or Shortness of Breath. albuterol 2023-0 Yes [id number] 2.5mg Inhale 3 [facility] 2.5 mg /3 4-28 mL every 8 ity of mL (0.083 00:00: (eight) [place] %) 00 hours as Medical nebulizer needed for Bran ch solution Wheezing or Shortness of Breath. atorvastati 2023-0 Yes [id number] 20mg Take 1 [facility] n 20 mg 4-28 tablet by ity of tablet 00:00: mouth at [place] 00 bedtime. Medical Branch losartan 50 2022-0 Yes [id number] 25mg Take 0.5 [facility] mg tablet 4-28 tablets by ity of 00:00: mouth [place] 00 every day Medical at [address] [place] (noon). ipratropium 2023-0 Yes [id number] .5mg Inhale 2.5 [facility] 0.02 % 4-28 mL every 6 ity of nebulizer 00:00: (six) [place] solution 00 hours as Medical needed for Branch Wheezing or Shortness of Breath. albuterol 2023-0 Yes [id number] 2.5mg Inhale 3 [facility] 2.5 mg /3 4-28 mL every 8 ity of mL (0.083 00:00: (eight) [place] %) 00 hours as Medical nebulizer needed for Bran ch solution Wheezing or Shortness of Breath. atorvastati 2023-0 Yes [id number] 20mg Take 1 [facility] n 20 mg 4-28 tablet by ity of tablet 00:00: mouth at [place] 00 bedtime. Medical Branch losartan 50 3-0 Yes [id number] 25mg Take 0.5 [facility] mg tablet 4-28 tablets by ity of 00:00: mouth [place] 00 every day Medical at [address] [place] (noon). ipratropium 2023-0 Yes [id number] .5mg Inhale 2.5 [facility] 0.02 % 4-28 mL every 6 ity of nebulizer 00:00: (six) [place] solution 00 hours as Medical needed for Branch Wheezing or Shortness of Breath. albuterol 3-0 Yes [id number] 2.5mg Inhale 3 [facility] 2.5 mg /3 4-28 mL every 8 ity of mL (0.083 00:00: (eight) [place] %) 00 hours as Medical nebulizer needed for Bran ch solution Wheezing or Shortness of Breath. atorvastati 2022-0 Yes [id number] 20mg Take 1 [facility] n 20 mg 4-28 tablet by ity of tablet 00:00: mouth at [place] 00 bedtime. Medical Branch losartan 50 2022-0 Yes [id number] 25mg Take 0.5 [facility] mg tablet 4-28 tablets by ity of 00:00: mouth [place] 00 every day Medical at [address] [place] (noon). ipratropium 3-0 Yes [id number] .5mg Inhale 2.5 [facility] 0.02 % 4-28 mL every 6 ity of nebulizer 00:00: (six) [place] solution 00 hours as Medical needed for Branch Wheezing or Shortness of Breath. albuterol 2022-0 Yes [id number] 2.5mg Inhale 3 [facility] 2.5 mg /3 4-28 mL every 8 ity of mL (0.083 00:00: (eight) [place] %) 00 hours as Medical nebulizer needed for Bran ch solution Wheezing or Shortness of Breath. atorvastati 2022-0 Yes [id number] 20mg Take 1 [facility] n 20 mg 4-28 tablet by ity of tablet 00:00: mouth at [place] 00 bedtime. Medical Branch losartan 50 2022-0 Yes [id number] 25mg Take 0.5 [facility] mg tablet 4-28 tablets by ity of 00:00: mouth [place] 00 every day Medical at [address] [place] (noon). ipratropium 3-0 Yes [id number] .5mg Inhale 2.5 [facility] 0.02 % 4-28 mL every 6 ity of nebulizer 00:00: (six) [place] solution 00 hours as Medical needed for Branch Wheezing or Shortness of Breath. albuterol 3-0 Yes [id number] 2.5mg Inhale 3 [facility] 2.5 mg /3 4-28 mL every 8 ity of mL (0.083 00:00: (eight) [place] %) 00 hours as Medical nebulizer needed for Bran ch solution Wheezing or Shortness of Breath. atorvastati 2022-0 Yes [id number] 20mg Take 1 [facility] n 20 mg 4-28 tablet by ity of tablet 00:00: mouth at [place] 00 bedtime. Medical Branch losartan 50 2022-0 Yes [id number] 25mg Take 0.5 [facility] mg tablet 4-28 tablets by ity of 00:00: mouth [place] 00 every day Medical at [address] [place] (noon). ipratropium 3-0 Yes [id number] .5mg Inhale 2.5 [facility] 0.02 % 4-28 mL every 6 ity of nebulizer 00:00: (six) [place] solution 00 hours as Medical needed for Branch Wheezing or Shortness of Breath. albuterol 2022-0 Yes [id number] 2.5mg Inhale 3 [facility] 2.5 mg /3 4-28 mL every 8 ity of mL (0.083 00:00: (eight) [place] %) 00 hours as Medical nebulizer needed for Bran ch solution Wheezing or Shortness of Breath. atorvastati 2022-0 Yes [id number] 20mg Take 1 [facility] n 20 mg 4-28 tablet by ity of tablet 00:00: mouth at [place] 00 bedtime. Medical Branch losartan 50 2022-0 Yes [id number] 25mg Take 0.5 [facility] mg tablet 4-28 tablets by ity of 00:00: mouth [place] 00 every day Medical at [address] [place] (noon). ipratropium 3-0 Yes [id number] .5mg Inhale 2.5 [facility] 0.02 % 4-28 mL every 6 ity of nebulizer 00:00: (six) [place] solution 00 hours as Medical needed for Branch Wheezing or Shortness of Breath. albuterol 3-0 Yes [id number] 2.5mg Inhale 3 [facility] 2.5 mg /3 4-28 mL every 8 ity of mL (0.083 00:00: (eight) [place] %) 00 hours as Medical nebulizer needed for Bran ch solution Wheezing or Shortness of Breath. atorvastati 2022-0 Yes [id number] 20mg Take 1 [facility] n 20 mg 4-28 tablet by ity of tablet 00:00: mouth at [place] 00 bedtime. Medical Branch losartan 50 2022-0 Yes [id number] 25mg Take 0.5 [facility] mg tablet 4-28 tablets by ity of 00:00: mouth [place] 00 every day Medical at [address] [place] (noon). ipratropium 2023-0 Yes [id number] .5mg Inhale 2.5 [facility] 0.02 % 4-28 mL every 6 ity of nebulizer 00:00: (six) [place] solution 00 hours as Medical needed for Branch Wheezing or Shortness of Breath. albuterol 2023-0 Yes [id number] 2.5mg Inhale 3 [facility] 2.5 mg /3 4-28 mL every 8 ity of mL (0.083 00:00: (eight) [place] %) 00 hours as Medical nebulizer needed for Bran ch solution Wheezing or Shortness of Breath. atorvastati 2023-0 Yes [id number] 20mg Take 1 [facility] n 20 mg 4-28 tablet by ity of tablet 00:00: mouth at [place] 00 bedtime. [facility] losartan 50 3-0 Yes [id number] 25mg Take 0.5 [facility] mg tablet 4-28 tablets by ity of 00:00: mouth [place] 00 every day Medical at [address] [place] (noon). ipratropium 2023-0 Yes [id number] .5mg Inhale 2.5 [facility] 0.02 % 4-28 mL every 6 ity of nebulizer 00:00: (six) [place] solution 00 hours as Medical needed for Branch Wheezing or Shortness of Breath. albuterol 2023-0 Yes [id number] 2.5mg Inhale 3 [facility] 2.5 mg /3 4-28 mL every 8 ity of mL (0.083 00:00: (eight) [place] %) 00 hours as Medical nebulizer needed for Bran ch solution Wheezing or Shortness of Breath. atorvastati 3-0 Yes [id number] 20mg Take 1 [facility] n 20 mg 4-28 tablet by ity of tablet 00:00: mouth at [place] 00 bedtime. [facility] losartan 50 3-0 Yes [id number] 25mg Take 0.5 [facility] mg tablet 4-28 tablets by ity of 00:00: mouth [place] 00 every day Medical at [address] [place] (noon). ipratropium 2023-0 Yes [id number] .5mg Inhale 2.5 [facility] 0.02 % 4-28 mL every 6 ity of nebulizer 00:00: (six) [place] solution 00 hours as Medical needed for Branch Wheezing or Shortness of Breath. albuterol 3-0 Yes [id number] 2.5mg Inhale 3 [facility] 2.5 mg /3 4-28 mL every 8 ity of mL (0.083 00:00: (eight) [place] %) 00 hours as Medical nebulizer needed for Bran ch solution Wheezing or Shortness of Breath. atorvastati 2022-0 Yes [id number] 20mg Take 1 [facility] n 20 mg 4-28 tablet by ity of tablet 00:00: mouth at [place] 00 bedtime. Medical Branch losartan 50 2022-0 Yes [id number] 25mg Take 0.5 [facility] mg tablet 4-28 tablets by ity of 00:00: mouth [place] 00 every day Medical at [address] [place] (noon). ipratropium 3-0 Yes [id number] .5mg Inhale 2.5 [facility] 0.02 % 4-28 mL every 6 ity of nebulizer 00:00: (six) [place] solution 00 hours as Medical needed for Branch Wheezing or Shortness of Breath. albuterol 2022-0 Yes [id number] 2.5mg Inhale 3 [facility] 2.5 mg /3 4-28 mL every 8 ity of mL (0.083 00:00: (eight) [place] %) 00 hours as Medical nebulizer needed for Bran ch solution Wheezing or Shortness of Breath. atorvastati 2022-0 Yes [id number] 20mg Take 1 [facility] n 20 mg 4-28 tablet by ity of tablet 00:00: mouth at [place] 00 bedtime. Medical Branch losartan 50 2022-0 Yes [id number] 25mg Take 0.5 [facility] mg tablet 4-28 tablets by ity of 00:00: mouth [place] 00 every day Medical at [address] [place] (noon). ipratropium 2023-0 Yes [id number] .5mg Inhale 2.5 [facility] 0.02 % 4-28 mL every 6 ity of nebulizer 00:00: (six) [place] solution 00 hours as Medical needed for Branch Wheezing or Shortness of Breath. albuterol 2023-0 Yes [id number] 2.5mg Inhale 3 [facility] 2.5 mg /3 4-28 mL every 8 ity of mL (0.083 00:00: (eight) [place] %) 00 hours as Medical nebulizer needed for Bran ch solution Wheezing or Shortness of Breath. atorvastati 3-0 Yes [id number] 20mg Take 1 [facility] n 20 mg 4-28 tablet by ity of tablet 00:00: mouth at [place] 00 bedtime. Medical Branch losartan 50 2022-0 Yes [id number] 25mg Take 0.5 [facility] mg tablet 4-28 tablets by ity of 00:00: mouth [place] 00 every day Medical at 1200 Branch (noon). ipratropium 2023-0 Yes [id number] .5mg Inhale 2.5 [facility] 0.02 % 4-28 mL every 6 ity of nebulizer 00:00: (six) [place] solution 00 hours as Medical needed for Branch Wheezing or Shortness of Breath. albuterol 2023-0 Yes [id number] 2.5mg Inhale 3 [facility] 2.5 mg /3 4-28 mL every 8 ity of mL (0.083 00:00: (eight) [place] %) 00 hours as Medical nebulizer needed for Bran ch solution Wheezing or Shortness of Breath. atorvastati 2022-0 Yes [id number] 20mg Take 1 [facility] n 20 mg 4-28 tablet by ity of tablet 00:00: mouth at [place] 00 bedtime. Medical Branch losartan 50 2022-0 Yes [id number] 25mg Take 0.5 [facility] mg tablet 4-28 tablets by ity of 00:00: mouth [place] 00 every day Medical at 1200 [facility] (noon). ipratropium 2023-0 Yes [id number] .5mg Inhale 2.5 [facility] 0.02 % 4-28 mL every 6 ity of nebulizer 00:00: (six) [place] solution 00 hours as Medical needed for Branch Wheezing or Shortness of Breath. albuterol 2023-0 Yes [id number] 2.5mg Inhale 3 [facility] 2.5 mg /3 4-28 mL every 8 ity of mL (0.083 00:00: (eight) [place] %) 00 hours as Medical nebulizer needed for Bran ch solution Wheezing or Shortness of Breath. atorvastati 3-0 Yes [id number] 20mg Take 1 [facility] n 20 mg 4-28 tablet by ity of tablet 00:00: mouth at [place] 00 bedtime. Medical Branch losartan 50 2023-0 Yes [id number] 25mg Take 0.5 [facility] mg tablet 4-28 tablets by ity of 00:00: mouth [place] 00 every day Medical at [address] [place] (noon). ipratropium 2023-0 Yes [id number] .5mg Inhale 2.5 [facility] 0.02 % 4-28 mL every 6 ity of nebulizer 00:00: (six) [place] solution 00 hours as Medical needed for Branch Wheezing or Shortness of Breath. albuterol 2023-0 Yes [id number] 2.5mg Inhale 3 [facility] 2.5 mg /3 4-28 mL every 8 ity of mL (0.083 00:00: (eight) [place] %) 00 hours as Medical nebulizer needed for Bran ch solution Wheezing or Shortness of Breath. atorvastati 2022-0 Yes [id number] 20mg Take 1 [facility] n 20 mg 4-28 tablet by ity of tablet 00:00: mouth at [place] 00 bedtime. Medical Branch losartan 50 2022-0 Yes [id number] 25mg Take 0.5 [facility] mg tablet 4-28 tablets by ity of 00:00: mouth [place] 00 every day Medical at [address] [place] (noon). ipratropium 2023-0 Yes [id number] .5mg Inhale 2.5 [facility] 0.02 % 4-28 mL every 6 ity of nebulizer 00:00: (six) [place] solution 00 hours as Medical needed for Branch Wheezing or Shortness of Breath. albuterol 2023-0 Yes [id number] 2.5mg Inhale 3 [facility] 2.5 mg /3 4-28 mL every 8 ity of mL (0.083 00:00: (eight) [place] %) 00 hours as Medical nebulizer needed for Bran ch solution Wheezing or Shortness of Breath. atorvastati 2023-0 Yes [id number] 20mg Take 1 [facility] n 20 mg 4-28 tablet by ity of tablet 00:00: mouth at [place] 00 bedtime. Medical Branch losartan 50 2022-0 Yes [id number] 25mg Take 0.5 [facility] mg tablet 4-28 tablets by ity of 00:00: mouth [place] 00 every day Medical at [address] [place] (noon). ipratropium 2023-0 Yes [id number] .5mg Inhale 2.5 [facility] 0.02 % 4-28 mL every 6 ity of nebulizer 00:00: (six) [place] solution 00 hours as Medical needed for Branch Wheezing or Shortness of Breath. albuterol 2022-0 Yes [id number] 2.5mg Inhale 3 [facility] 2.5 mg /3 4-28 mL every 8 ity of mL (0.083 00:00: (eight) [place] %) 00 hours as Medical nebulizer needed for Bran ch solution Wheezing or Shortness of Breath. atorvastati 2022-0 Yes [id number] 20mg Take 1 [facility] n 20 mg 4-28 tablet by ity of tablet 00:00: mouth at [place] 00 bedtime. Medical Branch losartan 50 2022-0 Yes [id number] 25mg Take 0.5 [facility] mg tablet 4-28 tablets by ity of 00:00: mouth [place] 00 every day Medical at 1200 [facility] (noon). ipratropium 3-0 Yes [id number] .5mg Inhale 2.5 [facility] 0.02 % 4-28 mL every 6 ity of nebulizer 00:00: (six) [place] solution 00 hours as Medical needed for Branch Wheezing or Shortness of Breath. albuterol 2022-0 Yes [id number] 2.5mg Inhale 3 [facility] 2.5 mg /3 4-28 mL every 8 ity of mL (0.083 00:00: (eight) [place] %) 00 hours as Medical nebulizer needed for Bran ch solution Wheezing or Shortness of Breath. atorvastati 2022-0 Yes [id number] 20mg Take 1 [facility] 20 mg 4-28 tablet by [facility] of tablet 00:00: mouth at [place] 00 bedtime. Medical Branch losartan 50 2022-0 Yes [id number] 25mg Take 0.5 [facility] mg tablet 4-28 tablets by [facility] of 00:00: mouth [place] 00 every day Medical at [address] Branch (noon). ipratropium 2023-0 Yes [id number] .5mg Inhale 2.5 [facility] 0.02 % 4-28 mL every 6 ity of nebulizer 00:00: (six) [place] solution 00 hours as Medical needed for Branch Wheezing or Shortness of Breath. albuterol 3-0 Yes [id number] 2.5mg Inhale 3 [facility] 2.5 mg /3 4-28 mL every 8 ity of mL (0.083 00:00: (eight) [place] %) 00 hours as Medical nebulizer needed for Bran ch solution Wheezing or Shortness of Breath. atorvastati 3-0 Yes [id number] 20mg Take 1 [facility] n 20 mg 4-28 tablet by [facility]y of tablet 00:00: mouth at [place] 00 bedtime. Medical Branch losartan 50 2022-0 Yes [id number] 25mg Take 0.5 [facility] mg tablet 4-28 tablets by [facility]y of 00:00: mouth [place] 00 every day Medical at [address] [place] (noon). ipratropium 2023-0 Yes [id number] .5mg Inhale 2.5 [facility] 0.02 % 4-28 mL every 6 ity of nebulizer 00:00: (six) [place] solution 00 hours as Medical needed for Branch Wheezing or Shortness of Breath. albuterol 2023-0 Yes [id number] 2.5mg Inhale 3 [facility] 2.5 mg /3 4-28 mL every 8 ity of mL (0.083 00:00: (eight) [place] %) 00 hours as Medical nebulizer needed for Bran ch solution Wheezing or Shortness of Breath. atorvastati 2022-0 Yes [id number] 20mg Take 1 [facility] n 20 mg 4-28 tablet by [facility]y of tablet 00:00: mouth at [place] 00 bedtime. Medical Branch losartan 50 2022-0 Yes [id number] 25mg Take 0.5 [facility] mg tablet 4-28 tablets by [facility]y of 00:00: mouth [place] 00 every day Medical at [address] [place] (noon). ipratropium 2023-0 Yes [id number] .5mg Inhale 2.5 [facility] 0.02 % 4-28 mL every 6 ity of nebulizer 00:00: (six) [place] solution 00 hours as Medical needed for Branch Wheezing or Shortness of Breath. albuterol 2023-0 Yes [id number] 2.5mg Inhale 3 [facility] 2.5 mg /3 4-28 mL every 8 ity of mL (0.083 00:00: (eight) [place] %) 00 hours as Medical nebulizer needed for Bran ch solution Wheezing or Shortness of Breath. atorvastati 2023-0 Yes [id number] 20mg Take 1 [facility] n 20 mg 4-28 tablet by [facility]y of tablet 00:00: mouth at [place] 00 bedtime. Medical Branch losartan 50 0 Yes [id number] 25mg Take 0.5 [facility] mg tablet 4-28 tablets by [facility]y of 00:00: mouth [place] 00 every day Medical at [address] [place] [address] (noon). ipratropium 2022-0 Yes [id number] .5mg Inhale 2.5 [facility] 0.02 % 4-28 mL every 6 ity of nebulizer 00:00: (six) [place] solution 00 hours as Medical needed for Branch Wheezing or Shortness of Breath. albuterol 2022-0 Yes [id number] 2.5mg Inhale 3 [facility] 2.5 mg /3 4-28 mL every 8 ity of mL (0.083 00:00: (eight) [place] %) 00 hours as Medical nebulizer needed for Bran ch solution Wheezing or Shortness of Breath. atorvastati 0 Yes [id number] 20mg Take 1 [facility] n 20 mg 4-28 tablet by [facility]y of tablet 00:00: mouth at [place] 00 bedtime. Medical Branch losartan 50 0 Yes [id number] 25mg Take 0.5 [facility] mg tablet 4-28 tablets by ity of 00:00: mouth [place] 00 every day Medical at [address] [place] [address] (noon). atorvastati 0 Yes [id number] 20mg Take 1 [facility] n 20 mg 4-28 tablet by ity of tablet 00:00: mouth at [place] 00 bedtime. Medical Branch losartan 50 0 Yes [id number] 25mg Take 0.5 [facility] mg tablet 4-28 tablets by ity of 00:00: mouth [place] 00 every day Medical at [address] [place] [address] (noon). atorvastati 2022-0 Yes [id number] 20mg Take 1 [facility] n 20 mg 4-28 tablet by [facility]y of tablet 00:00: mouth at [place] 00 bedtime. Medical Branch losartan 50 0 Yes [id number] 25mg Take 0.5 [facility] mg tablet 4-28 tablets by [facility] of 00:00: mouth [place] 00 every day Medical at [address] [place] [address] (noon). atorvastati 2022-0 Yes [id number] 20mg Take 1 [facility] n 20 mg 4-28 tablet by ity of tablet 00:00: mouth at [place] 00 bedtime. Medical Branch losartan 50 0 Yes [id number] 25mg Take 0.5 [facility] mg tablet 4-28 tablets by ity of 00:00: mouth [place] 00 every day Medical at [address] [place] [address] (noon). atorvastati 2022-0 Yes [id number] 20mg Take 1 [facility] n 20 mg 4-28 tablet by [facility] of tablet 00:00: mouth at [place] 00 bedtime. Medical Branch losartan 50 2022-0 Yes [id number] 25mg Take 0.5 [facility] mg tablet 4-28 tablets by [facility] of 00:00: mouth [place] 00 every day Medical at [address] [place] [address] (noon). atorvastati 2022-0 Yes [id number] 20mg Take 1 [facility] n 20 mg 4-28 tablet by [facility]y of tablet 00:00: mouth at [place] 00 bedtime. Medical Branch losartan 50 2022-0 Yes [id number] 25mg Take 0.5 [facility] mg tablet 4-28 tablets by [facility]y of 00:00: mouth [place] 00 every day Medical at [address] [place] [address] (noon). atorvastati 2022-0 Yes [id number] 20mg Take 1 [facility] n 20 mg 4-28 tablet by ity of tablet 00:00: mouth at [place] 00 bedtime. [facility] Branch losartan 50 2022-0 Yes [id number] 25mg Take 0.5 [facility] mg tablet 4-28 tablets by [facility]y of 00:00: mouth [place] 00 every day Medical at [address] [place] [address] (noon). atorvastati 2022-0 Yes [id number] 20mg Take 1 [facility] n 20 mg 4-28 tablet by [facility] of tablet 00:00: mouth at [place] 00 bedtime. [facility] losartan 50 2022-0 Yes [id number] 25mg Take 0.5 [facility] mg tablet 4-28 tablets by [facility] of 00:00: mouth [place] 00 every day Medical at [address] [place] [address] (noon). atorvastati 2022-0 Yes [id number] 20mg Take 1 [facility] n 20 mg 4-28 tablet by [facility] of tablet 00:00: mouth at [place] 00 bedtime. [facility] losartan 50 2022-0 Yes [id number] 25mg Take 0.5 [facility] mg tablet 4-28 tablets by ity of 00:00: mouth [place] 00 every day Medical at [address] [place] [address] (noon). atorvastati 2022-0 Yes [id number] 20mg Take 1 [facility] n 20 mg 4-28 tablet by ity of tablet 00:00: mouth at [place] 00 bedtime. [facility] losartan 50 2022-0 Yes [id number] 25mg Take 0.5 [facility] mg tablet 4-28 tablets by [facility]y of 00:00: mouth [place] 00 every day Medical at [address] [place] [address] (noon). atorvastati 2022-0 Yes [id number] 20mg Take 1 [facility] n 20 mg 4-28 tablet by [facility]y of tablet 00:00: mouth at [place] 00 bedtime. [facility] losartan 50 2022-0 Yes [id number] 25mg Take 0.5 [facility] mg tablet 4-28 tablets by ity of 00:00: mouth [place] 00 every day Medical at [address] [place] [address] (noon). atorvastati 2022-0 Yes [id number] 20mg Take 1 [facility] n 20 mg 4-28 tablet by ity of tablet 00:00: mouth at [place] 00 bedtime. [facility] Branch losartan 50 2022-0 Yes [id number] 25mg Take 0.5 [facility] mg tablet 4-28 tablets by ity of 00:00: mouth [place] 00 every day Medical at [address] [place] [address] (noon). atorvastati 2022-0 Yes [id number] 20mg Take 1 [facility] n 20 mg 4-28 tablet by ity of tablet 00:00: mouth at [place] 00 bedtime. [facility] losartan 50 2022-0 Yes [id number] 25mg Take 0.5 [facility] mg tablet 4-28 tablets by ity of 00:00: mouth [place] 00 every day Medical at [address] [place] [address] (noon). atorvastati 2022-0 Yes [id number] 20mg Take 1 [facility] n 20 mg 4-28 tablet by ity of tablet 00:00: mouth at [place] 00 bedtime. Medical Branch losartan 50 2022-0 Yes [id number] 25mg Take 0.5 [facility] mg tablet 4-28 tablets by ity of 00:00: mouth [place] 00 every day Medical at [address] [place] [address] (noon). atorvastati 2022-0 Yes [id number] 20mg Take 1 [facility] n 20 mg 4-28 tablet by ity of tablet 00:00: mouth at [place] 00 bedtime. Medical Branch losartan 50 2022-0 Yes [id number] 25mg Take 0.5 [facility] mg tablet 4-28 tablets by ity of 00:00: mouth [place] 00 every day Medical at [address] [place] [address] (noon). atorvastati 2022-0 Yes [id number] 20mg Take 1 [facility] n 20 mg 4-28 tablet by [facility] of tablet 00:00: mouth at [place] 00 bedtime. Medical Branch losartan 50 2022-0 Yes [id number] 25mg Take 0.5 [facility] mg tablet 4-28 tablets by ity of 00:00: mouth [place] 00 every day Medical at [address] [place] [address] (noon). atorvastati 2022-0 Yes [id number] 20mg Take 1 [facility] n 20 mg 4-28 tablet by [facility] of tablet 00:00: mouth at [place] 00 bedtime. Medical Branch losartan 50 2022-0 Yes [id number] 25mg Take 0.5 [facility] mg tablet 4-28 tablets by ity of 00:00: mouth [place] 00 every day Medical at [address] [place] [address] (noon). atorvastati 2022-0 Yes [id number] 20mg Take 1 [facility] n 20 mg 4-28 tablet by [facility]y of tablet 00:00: mouth at [place] 00 bedtime. Medical Branch losartan 50 2022-0 Yes [id number] 25mg Take 0.5 [facility] mg tablet 4-28 tablets by [facility] of 00:00: mouth [place] 00 every day Medical at [address] [place] [address] (noon). atorvastati 2022-0 Yes [id number] 20mg Take 1 [facility] n 20 mg 4-28 tablet by [facility] of tablet 00:00: mouth at [place] 00 bedtime. Medical Branch losartan 50 2022-0 Yes [id number] 25mg Take 0.5 [facility] mg tablet 4-28 tablets by it[facility] of 00:00: mouth [place] 00 every day Medical at [address] [place] [address] (noon). atorvastati 2022-0 Yes [id number] 20mg Take 1 [facility] n 20 mg 4-28 tablet by it[facility] of tablet 00:00: mouth at [place] 00 bedtime. Medical Branch losartan 50 2022-0 Yes [id number] 25mg Take 0.5 [facility] mg tablet 4-28 tablets by it[facility] of 00:00: mouth [place] 00 every day Medical at [address] [place] [address] (noon). atorvastati 2022-0 Yes [id number] 20mg Take 1 [facility] n 20 mg 4-28 tablet by ity of tablet 00:00: mouth at [place] 00 bedtime. Medical Branch losartan 50 2022-0 Yes [id number] 25mg Take 0.5 [facility] mg tablet 4-28 tablets by ity of 00:00: mouth [place] 00 every day Medical at [address] [place] [address] (noon). atorvastati 2022-0 Yes [id number] 20mg Take 1 [facility] n 20 mg 4-28 tablet by ity of tablet 00:00: mouth at [place] 00 bedtime. Medical Branch losartan 50 2022-0 Yes [id number] 25mg Take 0.5 [facility] mg tablet 4-28 tablets by ity of 00:00: mouth [place] 00 every day Medical at [address] [place] [address] (noon). atorvastati 2022-0 Yes [id number] 20mg Take 1 [facility] n 20 mg 4-28 tablet by ity of tablet 00:00: mouth at [place] 00 bedtime. [facility] Branch losartan 50 2022-0 Yes [id number] 25mg Take 0.5 [facility] mg tablet 4-28 tablets by ity of 00:00: mouth [place] 00 every day Medical at [address] [place] [address] (noon). losartan 50 2022-0 Yes [id number] 25mg Take 0.5 [facility] mg tablet 4-28 tablets by ity of 00:00: mouth [place] 00 every day Medical at [address] [place] [address] (noon). losartan 50 2022-0 Yes [id number] 25mg Take 0.5 [facility] mg tablet 4-28 tablets by ity of 00:00: mouth [place] 00 every day Medical at [address] [place] [address] (noon). losartan 50 2022-0 Yes [id number] 25mg Take 0.5 [facility] mg tablet 4-28 tablets by ity of 00:00: mouth [place] 00 every day Medical at [address] [place] [address] (noon). losartan 50 2022-0 Yes [id number] 25mg Take 0.5 [facility] mg tablet 4-28 tablets by ity of 00:00: mouth [place] 00 every day Medical at [address] [place] [address] (noon). losartan 50 2022-0 Yes [id number] 25mg Take 0.5 [facility] mg tablet 4-28 tablets by ity of 00:00: mouth [place] 00 every day Medical at [address] [place] [address] (noon). losartan 50 2022-0 Yes [id number] 25mg Take 0.5 [facility] mg tablet 4-28 tablets by ity of 00:00: mouth [place] 00 every day Medical at [address] [place] [address] (noon). losartan 50 2022-0 Yes [id number] 25mg Take 0.5 [facility] mg tablet 4-28 tablets by ity of 00:00: mouth [place] 00 every day Medical at [address] [place] [address] (noon). losartan 50 2022-0 Yes [id number] 25mg Take 0.5 [facility] mg tablet 4-28 tablets by ity of 00:00: mouth [place] 00 every day Medical at [address] [place] [address] (noon). losartan 50 2022-0 Yes [id number] 25mg Take 0.5 [facility] mg tablet 4-28 tablets by ity of 00:00: mouth [place] 00 every day Medical at [address] [place] [address] (noon). losartan 50 2022-0 3- No [id number] 25mg Take 0.5 [facility] mg tablet -10 12-23 tablets by ity of 00:00: 00:00 mouth [place] 00 :00 every day Medical at [address] [place] [address] (noon). losartan 50 2022-0 2022- No [id number] 25mg Take 0.5 [facility] mg tablet -10 12-23 tablets by ity of 00:00: 00:00 mouth [place] 00 :00 every day Medical at [address] [place] [address] (noon). atorvastati 2022-2022- No [id number] 20mg Take 1 [facility] n 20 mg 4-10 11-29 tablet by ity of tablet 00:00: 00:00 mouth at [place] 00 :00 bedtime. Medical Branch atorvastati 2022-0 2022- No [id number] 20mg Take 1 [facility] n 20 mg 4-10 11-29 tablet by ity of tablet 00:00: 00:00 mouth at [place] 00 :00 bedtime. Medical Branch ipratropium 2022- No [id number] .5mg Inhale 2.5 [facility] 0.02 % -28 06-27 mL every 6 ity of nebulizer 00:00: 00:00 (six) [place] solution 00 :00 hours as Medical needed for Branch Wheezing or Shortness of Breath. albuterol 2022- No [id number] 2.5mg Inhale 3 [facility] 2.5 mg /3 - 06-27 mL every 8 ity of mL (0.083 00:00: 00:00 (eight) [place] :00 hours as Medical nebulizer needed for Bran ch solution Wheezing or Shortness of Breath. ipratropium 0 2022- No [id number] .5mg Inhale 2.5 [facility] 0.02 % -28 06-27 mL every 6 ity of nebulizer 00:00: 00:00 (six) [place] solution 00 :00 hours as Medical needed for Branch Wheezing or Shortness of Breath. albuterol 2022-0 3- No [id number] 2.5mg Inhale 3 [facility] 2.5 mg /3 4-28 06-27 mL every 8 ity of mL (0.083 00:00: 00:00 (eight) [place] 00 :00 hours as Medical nebulizer needed for Bran ch solution Wheezing or Shortness of Breath. ipratropium 2022-0 2022- No [id number] .5mg Inhale 2.5 [facility] 0.02 % 4-28 06-27 mL every 6 ity of nebulizer 00:00: 00:00 (six) [place] solution 00 :00 hours as Medical needed for Branch Wheezing or Shortness of Breath. albuterol 2022-0 3- No [id number] 2.5mg Inhale 3 [facility] 2.5 mg /3 4-28 06-27 mL every 8 ity of mL (0.083 00:00: 00:00 (eight) [place] 00 :00 hours as Medical nebulizer needed for Bran ch solution Wheezing or Shortness of Breath. furosemide 2022-0 3- No [id number] 40mg Take 1 [facility] 40 mg 4-28 05-09 tablet by ity of tablet 00:00: 00:00 mouth [place] 00 :00 every Medical morning Branch and evening. furosemide 2023-0 Yes 40mg Take 1 [facility] 40 mg 4-27 tablet by ity of tablet 00:00: [facility] 00 every Medical morning Branch and evening. furosemide 2023-0 Yes 40mg Take 1 [facility] rs 40 mg 4-27 tablet by ity of tablet 00:00: [facility] 00 every Medical morning Branch and [...] every Medical morning Branch and evening. spironolact 2022-0 2022- No 12.5mg QD Take 0.[address] [facility] 4-20 05-20 tablets [facility] (ALDACTONE) 00:00: 23:59 (12.5 mg M edical 25 MG 00 :00 total) by Center tablet mouth in the morning for 30 days. spironolact 2022-0 2022- No 12.5mg QD Take 0.[address] [facility] 4-20 05-20 tablets [facility] (ALDACTONE) 00:00: 23:59 (12.5 mg M edical 25 MG 00 :00 total) by Center tablet mouth in the morning for 30 days. spironolact 2022-0 2022- No 12.5mg QD Take 0.[address] [facility] 4-20 05-20 tablets [facility] (ALDACTONE) 00:00: 23:59 (12.5 mg M edical 25 MG 00 :00 total) by Center tablet mouth in the morning for 30 days. spironolact 2022-0 2022- No 12.5mg QD Take 0.[address] [facility] 4-20 05-20 tablets [facility] (ALDACTONE) 00:00: 23:59 (12.5 mg M edical 25 MG 00 :00 total) by Center tablet mouth in the morning for 30 days. spironolact 2022-0 2022- No 12.5mg QD Take 0.[address] [facility] 4-20 05-20 [facility] (ALDACTONE) 00:00: 23:59 (12.5 mg M edical 25 MG 00 :00 total) by Center tablet mouth in the morning for 30 days. carvediloL 2022-0 2022- No 6.25mg Q.5D Take [address] [facility] [address] [facility] (COREG) 4-19 -19 tablet [facility] 6.25 MG 00:00: 23:59 (6.25 mg Medic al tablet 00 :00 total) by Center mouth in the morning and 1 tablet (6.25 mg total) before bedtime. Do all this for 30 days. furosemide 2022-0 2022- No 40mg Q.5D Take [address] [facility] (LASIX) 40 -19 -19 tablet (40 [facility] MG tablet 00:00: 23:59 mg total) Me dical 00 :00 by mouth Center in the morning and 1 tablet (40 mg total) before bedtime. Do all this for 30 days. ipratropium 2022-0 2022- No 3mL Q.5D Take [address] [facility] -albuteroL 06-01 by [facility] [employer] ([employer]) 00:00: 23:59 nebulizati M edical 0.5 mg-3 [...] Do all this for 30 days. furosemide 2022-0 2022- No 40mg Q.5D Take [address] [facility] (LASIX) 40 06-01- tablet (40 Susan kes MG tablet 00:00: 23:59 mg total) Me dical 00 :00 by mouth Center in the morning and 1 tablet (40 mg total) before bedtime. Do all this for 30 days. ipratropium 2022-0 2022- No 3mL Q.5D Take [address] [facility] -albuteroL 06-01 by [employer] ([employer]) 00:00: 23:59 nebulizati M edical 0.5 mg-3 00 :00 on in the Center mg(2.5 mg morning base)/3 mL and 3 mLs nebulizer before solution bedtime. Do all this for 30 days. carvediloL 2022-0 2022- No 6.25mg Q.5D Take [address] [facility] [address] [facility] (COREG) -01 07- tablet [facility] 6.25 MG 00:00: 23:59 (6.25 mg Medic al tablet 00 :00 total) by Center mouth in the morning and 1 tablet (6.25 mg total) before bedtime. Do all this for 30 days. furosemide 2022-2022- No 40mg Q.5D Take [address] [facility] (LASIX) 40 - 05-19 tablet (40 Susan kes MG tablet 00:00: 23:59 mg total) Me dical 00 :00 by mouth Center in the morning and 1 tablet (40 mg total) before bedtime. Do all this for 30 days. ipratropium 2022-0 2022- No 3mL Q.5D Take [address] [facility] -albuteroL 06-0119 by [facility] [employer] (Smish) 00:00: 23:59 nebulizati M edical 0.5 mg-3 00 :00 on in the Center mg(2.5 mg morning base)/3 mL and 3 mLs nebulizer before solution bedtime. Do all this for 30 days. carvediloL 2022-0 2022- No 6.25mg Q.5D Take [address] [facility] [address] [facility] (COREG) 06-01- tablet [facility] 6.25 MG 00:00: 23:59 (6.25 mg Medic al tablet 00 :00 total) by Center mouth in the morning and 1 tablet (6.25 mg total) before bedtime. Do all this for 30 days. furosemide 2022-0 2022- No 40mg Q.5D Take [address] [facility] (LASIX) 40 -01 07- tablet (40 Ssuan kes MG tablet 00:00: 23:59 mg total) Me dical 00 :00 by mouth Center in the morning and 1 tablet (40 mg total) before bedtime. Do all this for 30 days. ipratropium 2022-0 2022- No 3mL Q.5D Take [address] [facility] -albuteroL 06-0119 by [facility] [employer] (Smish) 00:00: 23:59 nebulizati M edical 0.5 mg-3 00 :00 on in the Center mg(2.5 mg morning base)/3 mL and 3 mLs nebulizer before solution bedtime. Do all this for 30 days. carvediloL 2022-0 2022- No 6.25mg Q.5D Take [address] [facility] [address] [facility] (COREG) -01 07-19 tablet [facility] 6.25 MG 00:00: 23:59 (6.25 [...] [address] [facility] -albuteroL 06-01 by [facility] (DUO-NEB) 00:00: 23:59 nebulizati M edical 0.5 mg-3 00 :00 on in the Center mg(2.5 mg morning base)/3 mL and 3 mLs nebulizer before solution bedtime. Do all this for 30 days. benzonatate 2022-2022- No 200mg Q.[id number] Take [address] [facility] (TESSALON) 06-01 [id number] capsules [facility] 100 MG 00:00: 23:59 3D (200 mg Medical capsule 00 :00 total) by Center mouth in the morning and 2 capsules (200 mg total) at noon and 2 capsules (200 mg total) in the evening. Do all this for 10 days. benzonatate 2022-0 2022- No 200mg Q.[id number] Take [address] [facility] (TESSALON) 06-01 [id number] [facility] 100 MG 00:00: 23:59 3D (200 mg Medical capsule 00 :00 total) by Center mouth in the morning and 2 capsules (200 mg total) at noon and 2 capsules (200 mg total) in the evening. Do all this for 10 days. benzonatate 2022-0 3- No 200mg Q.[id number] Take [address] [facility] (TESSALON) 06-01 [id number] [facility] 100 MG 00:00: 23:59 3D (200 mg Medical capsule 00 :00 total) by Center mouth in the morning and 2 capsules (200 mg total) at noon and 2 capsules (200 mg total) in the evening. Do all this for 10 days. benzonatate 3-0 2023- No 200mg Q.[id number] Take [address] [facility] ([place]ESS[place]ON) 4- [id number] [facility] 100 MG 00:00: 23:59 3D (200 mg Medical capsule 00 :00 total) by Center mouth in the morning and 2 capsules (200 mg total) at noon and 2 capsules (200 mg total) in the evening. Do all this for 10 days. benzonatate 2022-0 3- No 200mg Q.[id number] Take [address] [facility] ([place]ESS[place]ON) 06-01- [id number] [facility] 100 MG 00:00: 23:59 3D [...] [place] 00 every day Medical at [address] [place] (noon). losartan 50 2023-0 Yes 25mg Take 0.5 [facility] mg tablet 4-12 tablets by ity of 00:00: mouth [place] 00 every day Medical at [address] [place] (noon). losartan 50 2023-0 Yes 25mg Take 0.5 [facility] mg tablet 4-12 tablets by ity of 00:00: mouth [place] 00 every day Medical at [address] [place] [address] (noon). losartan 50 2023-0 Yes 25mg Take 0.5 [facility] mg tablet 4-12 tablets by ity of 00:00: mouth [place] 00 every day Medical at [address] [place] [address] (noon). losartan 50 2023-0 Yes 25mg Take 0.5 [facility] mg tablet 4-12 tablets by ity of 00:00: mouth [place] 00 every day Medical at [address] [place] (noon). losartan 50 2023-0 Yes 25mg Take 0.5 [facility] mg tablet 4-12 tablets by ity of 00:00: mouth [place] 00 every day Medical at [address] [place] (noon). losartan 50 2023-0 Yes 25mg Take 0.5 [facility] mg tablet 4-12 tablets by ity of 00:00: mouth [place] 00 every day Medical at [address] [place] (noon). losartan 50 2023-0 Yes 25mg Take 0.5 [facility] mg tablet 4-12 tablets by ity of 00:00: mouth [place] 00 every day Medical at [address] [place] [address] (noon). losartan 50 3-0 Yes 25mg Take 0.5 [facility] mg tablet 4-12 tablets by ity of 00:00: mouth [place] 00 every day Medical at [address] [place] [address] (noon). losartan 50 3-0 Yes 25mg Take 0.5 [facility] mg tablet 4-12 tablets by ity of 00:00: mouth [place] 00 every day Medical at [address] [place] [address] (noon). losartan 50 2022-0 2023- No 25mg Take 0.5 [facility] mg tablet 4-01 16-28 tablets by ity of 00:00: 00:00 mouth [place] 00 :00 every day Medical at [address] [place] [address] (noon). losartan 50 2022-0 2023- No 25mg Take 0.5 [facility]ivers mg tablet 4-01 16-28 tablets by ity of 00:00: 00:00 mouth [place] 00 :00 every day Medical at [address] [place] [address] (noon). losartan 50 2022-0 2023- No 25mg Take 0.5 [facility] nivers mg tablet 4-01 16-28 tablets by ity of 00:00: 00:00 mouth [place] 00 :00 every day Medical at [address] [place] [address] (noon). losartan 50 3-0 2023- No 50mg Take 1 [facility] vers mg tablet 4-01 16-12 tablet by ity of 00:00: 00:00 mouth [place] 00 :00 daily. Medical Branch losartan 50 3-0 2023- No 25mg Take 0.5 [facility] nivers mg tablet 4-01 16-12 tablets by ity of 00:00: 00:00 mouth [place] 00 :00 daily. Medical Branch losartan 50 3-0 2023- No 50mg Take 1 [facility] vers mg tablet 4-01 16-12 tablet by ity of 00:00: 00:00 mouth [place] 00 :00 daily. Medical Branch losartan 50 3-0 2023- No 25mg Take 0.5 [facility] nivers mg tablet 4-12 -12 tablets by ity of 00:00: 00:00 mouth [place] 00 :00 daily. Medical Branch furosemide 2022-0 Yes [id number] 40mg Take 1 [facility] 40 mg 4-04 tablet by ity of tablet 00:00: mouth [place] 00 daily. Medical Branch terbinafine 3-0 Yes [id number] 250mg Take 1 [facility] HCL 250 mg 4-04 tablet by ity of tablet 00:00: mouth [place] 00 daily. Medical Branch benzonatate 2022-0 Yes [id number] 200mg Take 1 [facility] 200 mg 4-04 capsule by ity of capsule 00:00: mouth 3 (three) Medical times Branch daily as needed for Cough. furosemide 2022-0 Yes [id number] 40mg Take 1 [facility] 40 mg 4-04 tablet by ity of tablet 00:00: mouth [place] 00 daily. Medical Branch terbinafine 2022-0 Yes [id number] 250mg Take 1 [facility] HCL 250 mg 4-04 tablet by ity of tablet 00:00: mouth [place] 00 daily. Medical Branch benzonatate 2022-0 Yes [id number] 200mg Take 1 [facility] 200 mg 4-04 capsule by ity of capsule 00:00: mouth 3 (three) Medical times [place] daily as needed for Cough. furosemide 2022-0 Yes [id number] 40mg Take 1 [facility] 40 mg 4-04 tablet by ity of tablet 00:00: mouth [place] 00 daily. Medical Branch terbinafine 2022-0 Yes [id number] 250mg Take 1 [facility] HCL 250 mg 4-04 tablet by ity of tablet 00:00: mouth [place] 00 daily. Medical Branch benzonatate 2022-0 Yes [id number] 200mg Take 1 [facility] 200 mg 4-04 capsule by ity of capsule 00:00: mouth 3 (three) Medical times [place] daily as needed for Cough. furosemide 2022-0 Yes [id number] 40mg Take 1 [facility] 40 mg 4-04 tablet by ity of tablet 00:00: mouth [place] 00 daily. Medical Branch terbinafine 2022-0 Yes [id number] 250mg Take 1 [facility] HCL 250 mg 4-04 tablet by ity of tablet 00:00: mouth [place] 00 daily. Medical Branch benzonatate 2022-0 Yes [id number] 200mg Take 1 [facility] 200 mg 4-04 capsule by ity of capsule 00:00: mouth 3 00 (three) Medical times [place] daily as needed for Cough. furosemide 2022-0 Yes [id number] 40mg Take 1 [facility] 40 mg 4-04 tablet by [facility] tablet 00:00: mouth [place] 00 daily. [facility] terbinafine 2022-0 Yes [id number] 250mg Take 1 [facility] H[facility] 250 mg 4-04 tablet by [facility] tablet 00:00: mouth [place] 00 daily. [facility] benzonatate 2022-0 Yes [id number] 200mg Take 1 [facility] 200 mg 4-04 capsule by [facility] capsule 00:00: mouth 3 (three) Medical times Branch daily as needed for Cough. furosemide 2022-0 Yes [id number] 40mg Take 1 [facility] 40 mg 4-04 tablet by [facility] tablet 00:00: mouth [place] 00 daily. [facility] terbinafine 2022-0 Yes [id number] 250mg Take 1 [facility] HCL 250 mg 4-04 tablet by [facility] tablet 00:00: mouth [place] 00 daily. [facility] benzonatate 2022-0 Yes [id number] 200mg Take 1 [facility] 200 mg 4-04 capsule by [facility] capsule 00:00: mouth 3 (three) Medical times [place] daily as needed for Cough. furosemide 2022-0 Yes [id number] 40mg Take 1 [facility] 40 mg 4-04 tablet by [facility] tablet 00:00: mouth [place] 00 daily. [facility] terbinafine 2022-0 Yes [id number] 250mg Take 1 [facility] HCL 250 mg 4-04 tablet by [facility] tablet 00:00: mouth [place] 00 daily. [facility] benzonatate 2022-0 Yes [id number] 200mg Take 1 [facility] 200 mg 4-04 capsule by [facility] capsule 00:00: mouth 3 (three) Medical times [place] daily as needed for Cough. furosemide 2022-0 Yes [id number] 40mg Take 1 [facility] 40 mg 4-04 tablet by [facility] tablet 00:00: mouth [place] 00 daily. [facility] terbinafine 2022-0 Yes [id number] 250mg Take 1 [facility] HCL 250 mg 4-04 tablet by [facility] tablet 00:00: mouth [place] 00 daily. [facility] benzonatate 2022-0 Yes [id number] 200mg Take 1 [facility] 200 mg 4-04 capsule by [facility] capsule 00:00: mouth 3 00 (three) Medical times [place] daily as needed for Cough. furosemide 2022-0 Yes [id number] 40mg Take 1 [facility] 40 mg 4-04 tablet by [facility] tablet 00:00: mouth [place] 00 daily. [facility] terbinafine 2022-0 Yes [id number] 250mg Take 1 [facility] HCL 250 mg 4-04 tablet by [facility] tablet 00:00: mouth [place] 00 daily. [facility] benzonatate 2022-0 Yes [id number] 200mg Take 1 [facility] 200 mg 4-04 capsule by [facility] capsule 00:00: mouth 3 (three) Medical times Branch daily as needed for Cough. furosemide 2022-0 Yes [id number] 40mg Take 1 [facility] 40 mg 4-04 tablet by [facility] tablet 00:00: mouth [place] 00 daily. [facility] terbinafine 2022-0 Yes [id number] 250mg Take 1 [facility] HCL 250 mg 4-04 tablet by [facility] tablet 00:00: mouth [place] 00 daily. [facility] benzonatate 2022-0 Yes [id number] 200mg Take 1 [facility] 200 mg 4-04 capsule by [facility] capsule 00:00: mouth (three) Medical times Branch daily as needed for Cough. terbinafine 2022-0 Yes [id number] 250mg Take 1 [facility] HCL 250 mg 4-04 tablet by [facility] tablet 00:00: mouth 00 daily. [facility] benzonatate 2022-0 Yes [id number] 200mg Take 1 [facility] 200 mg 4-04 capsule by [facility] capsule 00:00: mouth (three) Medical times Branch daily as needed for Cough. terbinafine 2022-0 Yes [id number] 250mg Take 1 [facility] HCL 250 mg 4-04 tablet by [facility] tablet 00:00: mouth 00 daily. [facility] benzonatate 2022-0 Yes [id number] 200mg Take 1 [facility] 200 mg 4-04 capsule by [facility] capsule 00:00: mouth (three) Medical times Branch daily as needed for Cough. terbinafine 2022-0 Yes [id number] 250mg Take 1 [facility] HCL 250 mg 4-04 tablet by [facility] tablet 00:00: mouth [place] 00 daily. [facility] benzonatate 2022-0 Yes [id number] 200mg Take 1 [facility] 200 mg 4-04 capsule by [facility] capsule 00:00: mouth 3 (three) Medical times Branch daily as needed for Cough. terbinafine 2022-0 Yes [id number] 250mg Take 1 [facility] HCL 250 mg 4-04 tablet by [facility] tablet 00:00: mouth [place] 00 daily. [facility] benzonatate 3-0 Yes [id number] 200mg Take 1 [facility] 200 mg 4-04 capsule by [facility] capsule 00:00: mouth 3 (three) Medical times Branch daily as needed for Cough. terbinafine 2023-0 Yes [id number] 250mg Take 1 [facility] HCL 250 mg 4-04 tablet by [facility] tablet 00:00: mouth [place] 00 daily. [facility] benzonatate 3-0 Yes [id number] 200mg Take 1 [facility] 200 mg 4-04 capsule by [facility] capsule 00:00: mouth 3 (three) Medical times Branch daily as needed for Cough. terbinafine 3-0 Yes [id number] 250mg Take 1 [facility] HCL 250 mg 4-04 tablet by [facility] tablet 00:00: mouth 00 daily. [facility] benzonatate 3-0 Yes [id number] 200mg Take 1 [facility] 200 mg 4-04 capsule by [facility] capsule 00:00: mouth (three) Medical times Branch daily as needed for Cough. terbinafine 3-0 Yes [id number] 250mg Take 1 [facility] HCL 250 mg 4-04 tablet by [facility] tablet 00:00: mouth 00 daily. [facility] benzonatate 3-0 Yes [id number] 200mg Take 1 [facility] 200 mg 4-04 capsule by [facility] capsule 00:00: mouth (three) Medical times Branch daily as needed for Cough. terbinafine 2023-0 Yes [id number] 250mg Take 1 [facility] HCL 250 mg 4-04 tablet by [facility] tablet 00:00: mouth [place] 00 daily. [facility] benzonatate 3-0 Yes [id number] 200mg Take 1 [facility] 200 mg 4-04 capsule by [facility] capsule 00:00: mouth (three) Medical times Branch daily as needed for Cough. terbinafine 2023-0 Yes [id number] 250mg Take 1 [facility] HCL 250 mg 4-04 tablet by [facility] tablet 00:00: mouth [place] 00 daily. [facility] benzonatate 2023-0 Yes [id number] 200mg Take 1 [facility] 200 mg 4-04 capsule by [facility] capsule 00:00: mouth 3 (three) Medical times Branch daily as needed for Cough. terbinafine 2023-0 Yes [id number] 250mg Take 1 [facility] HCL 250 mg 4-04 tablet by [facility] tablet 00:00: mouth [place] 00 daily. [facility] benzonatate 2023-0 Yes [id number] 200mg Take 1 [facility] 200 mg 4-04 capsule by [facility] capsule 00:00: mouth 3 (three) Medical times Branch daily as needed for Cough. terbinafine 2023-0 Yes [id number] 250mg Take 1 [facility] HCL 250 mg 4-04 tablet by [facility] tablet 00:00: mouth 00 daily. [facility] benzonatate 3-0 Yes [id number] 200mg Take 1 [facility] 200 mg 4-04 capsule by [facility] capsule 00:00: mouth (three) Medical times Branch daily as needed for Cough. terbinafine 2023-0 Yes [id number] 250mg Take 1 [facility] HCL 250 mg 4-04 tablet by [facility] tablet 00:00: mouth 00 daily. [facility] benzonatate 3-0 Yes [id number] 200mg Take 1 [facility] 200 mg 4-04 capsule by [facility] capsule 00:00: mouth (three) Medical times Branch daily as needed for Cough. terbinafine 3-0 Yes [id number] 250mg Take 1 [facility] HCL 250 mg 4-04 tablet by [facility] tablet 00:00: mouth 00 daily. [facility] benzonatate 3-0 Yes [id number] 200mg Take 1 [facility] 200 mg 4-04 capsule by [facility] capsule 00:00: mouth (three) Medical times Branch daily as needed for Cough. terbinafine 2023-0 Yes [id number] 250mg Take 1 [facility] HCL 250 mg 4-04 tablet by [facility] tablet 00:00: mouth 00 daily. [facility] benzonatate 2023-0 Yes [id number] 200mg Take 1 [facility] 200 mg 4-04 capsule by [facility] capsule 00:00: mouth 3 (three) Medical times Branch daily as needed for Cough. terbinafine 2023-0 Yes [id number] 250mg Take 1 [facility] HCL 250 mg 4-04 tablet by [facility] tablet 00:00: mouth [place] 00 daily. [facility] benzonatate 2023-0 Yes [id number] 200mg Take 1 [facility] 200 mg 4-04 capsule by [facility] capsule 00:00: mouth 3 (three) Medical times Branch daily as needed for Cough. terbinafine 2023-0 Yes [id number] 250mg Take 1 [facility] HCL 250 mg 4-04 tablet by [facility] tablet 00:00: mouth 00 daily. [facility] benzonatate 2023-0 Yes [id number] 200mg Take 1 [facility] 200 mg 4-04 capsule by [facility] capsule 00:00: mouth (three) Medical times Branch daily as needed for Cough. terbinafine 2023-0 Yes [id number] 250mg Take 1 [facility] HCL 250 mg 4-04 tablet by [facility] tablet 00:00: mouth 00 daily. [facility] benzonatate 2023-0 Yes [id number] 200mg Take 1 [facility] 200 mg 4-04 capsule by [facility] capsule 00:00: mouth (three) Medical times Branch daily as needed for Cough. terbinafine 3-0 Yes [id number] 250mg Take 1 [facility] HCL 250 mg 4-04 tablet by [facility] tablet 00:00: mouth 00 daily. [facility] benzonatate 3-0 Yes [id number] 200mg Take 1 [facility] 200 mg 4-04 capsule by [facility] capsule 00:00: mouth (three) Medical times Branch daily as needed for Cough. terbinafine 3-0 Yes [id number] 250mg Take 1 [facility] HCL 250 mg 4-04 tablet by [facility] tablet 00:00: mouth 00 daily. [facility] benzonatate 3-0 Yes [id number] 200mg Take 1 [facility] 200 mg 4-04 capsule by [facility] capsule 00:00: mouth (three) Medical times Branch daily as needed for Cough. terbinafine 2023-0 Yes [id number] 250mg Take 1 [facility] HCL 250 mg 4-04 tablet by [facility] tablet 00:00: mouth 00 daily. [facility] benzonatate 2023-0 Yes [id number] 200mg Take 1 [facility] 200 mg 4-04 capsule by [facility] capsule 00:00: mouth 3 (three) Medical times Branch daily as needed for Cough. terbinafine 2023-0 Yes [id number] 250mg Take 1 [facility] HCL 250 mg 4-04 tablet by [facility] tablet 00:00: mouth [place] 00 daily. [facility] benzonatate 2023-0 Yes [id number] 200mg Take 1 [facility] 200 mg 4-04 capsule by [facility] capsule 00:00: mouth 3 (three) Medical times Branch daily as needed for Cough. terbinafine 2023-0 Yes [id number] 250mg Take 1 [facility] HCL 250 mg 4-04 tablet by [facility] tablet 00:00: mouth [place] 00 daily. [facility] benzonatate 3-0 Yes [id number] 200mg Take 1 [facility] 200 mg 4-04 capsule by [facility] capsule 00:00: mouth 3 (three) Medical times Branch daily as needed for Cough. terbinafine 2023-0 Yes [id number] 250mg Take 1 [facility] HCL 250 mg 4-04 tablet by [facility] tablet 00:00: mouth 00 daily. [facility] benzonatate 3-0 Yes [id number] 200mg Take 1 [facility] 200 mg 4-04 capsule by [facility] capsule 00:00: mouth (three) Medical times Branch daily as needed for Cough. terbinafine 3-0 Yes [id number] 250mg Take 1 [facility] HCL 250 mg 4-04 tablet by [facility] tablet 00:00: mouth 00 daily. [facility] benzonatate 3-0 Yes [id number] 200mg Take 1 [facility] 200 mg 4-04 capsule by [facility] capsule 00:00: mouth (three) Medical times Branch daily as needed for Cough. terbinafine 2023-0 Yes [id number] 250mg Take 1 [facility] HCL 250 mg 4-04 tablet by [facility] tablet 00:00: mouth [place] 00 daily. [facility] benzonatate 3-0 Yes [id number] 200mg Take 1 [facility] 200 mg 4-04 capsule by [facility] capsule 00:00: mouth 3 (three) Medical times Branch daily as needed for Cough. terbinafine 2023-0 Yes [id number] 250mg Take 1 [facility] HCL 250 mg 4-04 tablet by [facility] tablet 00:00: mouth [place] 00 daily. [facility] benzonatate 2023-0 Yes [id number] 200mg Take 1 [facility] 200 mg 4-04 capsule by [facility] capsule 00:00: mouth 3 (three) Medical times Branch daily as needed for Cough. terbinafine 2023-0 Yes [id number] 250mg Take 1 [facility] HCL 250 mg 4-04 tablet by [facility] tablet 00:00: mouth [place] 00 daily. [facility] benzonatate 3-0 Yes [id number] 200mg Take 1 [facility] 200 mg 4-04 capsule by [facility] capsule 00:00: mouth 3 (three) Medical times Branch daily as needed for Cough. terbinafine 2023-0 Yes [id number] 250mg Take 1 [facility] HCL 250 mg 4-04 tablet by [facility] tablet 00:00: mouth [place] 00 daily. [facility] benzonatate 3-0 Yes [id number] 200mg Take 1 [facility] 200 mg 4-04 capsule by [facility] capsule 00:00: mouth 3 (three) Medical times Branch daily as needed for Cough. terbinafine 3-0 Yes [id number] 250mg Take 1 [facility] HCL 250 mg 4-04 tablet by [facility] tablet 00:00: mouth [place] 00 daily. [facility] benzonatate 3-0 Yes [id number] 200mg Take 1 [facility] 200 mg 4-04 capsule by [facility] capsule 00:00: mouth (three) Medical times Branch daily as needed for Cough. terbinafine 3-0 Yes [id number] 250mg Take 1 [facility] HCL 250 mg 4-04 tablet by [facility] tablet 00:00: mouth [place] 00 daily. [facility] benzonatate 3-0 Yes [id number] 200mg Take 1 [facility] 200 mg 4-04 capsule by [facility] capsule 00:00: mouth (three) Medical times Branch daily as needed for Cough. terbinafine 3-0 Yes [id number] 250mg Take 1 [facility] HCL 250 mg 4-04 tablet by [facility] tablet 00:00: mouth [place] 00 daily. [facility] benzonatate 3-0 Yes [id number] 200mg Take 1 [facility] 200 mg 4-04 capsule by [facility] capsule 00:00: mouth 3 (three) Medical times Branch daily as needed for Cough. terbinafine 2023-0 Yes [id number] 250mg Take 1 [facility] HCL 250 mg 4-04 tablet by [facility] tablet 00:00: mouth [place] 00 daily. [facility] benzonatate 3-0 Yes [id number] 200mg Take 1 [facility] 200 mg 4-04 capsule by [facility] capsule 00:00: mouth 3 (three) Medical times Branch daily as needed for Cough. terbinafine 3-0 Yes [id number] 250mg Take 1 [facility] HCL 250 mg 4-04 tablet by [facility] tablet 00:00: mouth [place] 00 daily. [facility] benzonatate 3-0 Yes [id number] 200mg Take 1 [facility] 200 mg 4-04 capsule by [facility] capsule 00:00: mouth (three) Medical times Branch daily as needed for Cough. terbinafine 2022-0 Yes [id number] 250mg Take 1 [facility] HCL 250 mg 4-04 tablet by [facility] tablet 00:00: mouth 00 daily. [facility] benzonatate 3-0 Yes [id number] 200mg Take 1 [facility] 200 mg 4-04 capsule by [facility] capsule 00:00: mouth (three) Medical times Branch daily as needed for Cough. terbinafine 3-0 Yes [id number] 250mg Take 1 [facility] HCL 250 mg 4-04 tablet by [facility] tablet 00:00: mouth 00 daily. [facility] benzonatate 3-0 Yes [id number] 200mg Take 1 [facility] 200 mg 4-04 capsule by [facility] capsule 00:00: mouth (three) Medical times Branch daily as needed for Cough. terbinafine 2022-0 Yes [id number] 250mg Take 1 [facility] HCL 250 mg 4-04 tablet by [facility] tablet 00:00: mouth 00 daily. [facility] benzonatate 3-0 Yes [id number] 200mg Take 1 [facility] 200 mg 4-04 capsule by [facility] capsule 00:00: mouth (three) Medical times Branch daily as needed for Cough. terbinafine 3-0 Yes [id number] 250mg Take 1 [facility] HCL 250 mg 4-04 tablet by [facility] tablet 00:00: mouth [place] 00 daily. [facility] benzonatate 3-0 Yes [id number] 200mg Take 1 [facility] 200 mg 4-04 capsule by [facility] capsule 00:00: mouth 3 (three) Medical times Branch daily as needed for Cough. terbinafine 2023-0 2023- No [id number] 250mg Take 1 [facility] HCL 250 mg 4-04 06-27 tablet by [facility] tablet 00:00: 00:00 mouth [place] 00 :00 daily. [facility] benzonatate 2022- No [id number] 200mg Take 1 [facility] 200 mg -08-09 capsule by [facility] capsule 00:00: 00:00 mouth 3 [place] 00 :00 (three) Medical times [place] daily as needed for Cough. terbinafine 2022- No [id number] 250mg Take 1 [facility] HCL 250 mg 05-17 tablet by [facility] tablet 00:00: 00:00 mouth [place] 00 :00 daily. [facility] benzonatate 2022- No [id number] 200mg Take 1 [facility] 200 mg -08-09 capsule by [facility] capsule 00:00: 00:00 mouth 3 [place] 00 :00 (three) Medical times [place] daily as needed for Cough. terbinafine 2022- No [id number] 250mg Take 1 [facility] HCL 250 mg 05-17 tablet by [facility] tablet 00:00: 00:00 mouth [place] 00 :00 daily. [facility] benzonatate 2022- No [id number] 200mg Take 1 [facility] 200 mg -08-09 capsule by [facility] capsule 00:00: 00:00 mouth 3 [place] 00 :00 (three) Medical times [place] daily as needed for Cough. furosemide 2022- No [id number] 40mg Take 1 [facility] 40 mg 4-05 17-27 tablet by [facility] tablet 00:00: 00:00 mouth [place] 00 :00 daily. [facility] furosemide 2022- No [id number] 40mg Take 1 [facility] 40 mg 4-05 17-27 tablet by [facility] tablet 00:00: 00:00 mouth [place] 00 :00 daily. [facility] furosemide 2022- No TAKE 1 [facility] ers 40 mg 3-09 06-04 TABLET BY [facility] tablet 00:00: 00:00 MOUTH [place] 00 :00 TWICE Medical DAILY FOR Branch 5 DAYS THEN ONE TABLET DAILY furosemide 2022-2022- No TAKE 1 [facility] ers 40 mg 3-27 -04 TABLET BY [facility] tablet 00:00: 00:00 MOUTH [place] 00 :00 TWICE Medical DAILY FOR Branch 5 DAYS THEN ONE TABLET DAILY losartan 25 2022-0 Yes [id number] 25mg Take 1 [facility] mg tablet 3-13 tablet by [facility] o f 00:00: mouth [place] 00 daily. [facility] losartan 25 2022-0 Yes [id number] 25mg Take 1 [facility] mg tablet 3-13 tablet by [facility] o f 00:00: mouth [place] 00 daily. [facility] losartan 25 2022-0 Yes [id number] 25mg Take 1 [facility] mg tablet 3-13 tablet by [facility] o f 00:00: mouth [place] 00 daily. [facility] losartan 25 2022-0 Yes [id number] 25mg Take 1 [facility] mg tablet 3-13 tablet by [facility] o f 00:00: mouth [place] 00 daily. [facility] losartan 25 2022-0 Yes [id number] 25mg Take 1 [facility] mg tablet 3-13 tablet by [facility] o f 00:00: mouth [place] 00 daily. [facility] losartan 25 2022-0 3- No [id number] 25mg Take 1 [facility] mg tablet 3-13 04-12 tablet by [facility] of 00:00: 00:00 mouth [place] 00 :00 daily. [facility] losartan 25 2022-0 3- No [id number] 25mg Take 1 [facility] mg tablet 3-13 04-12 tablet by [facility] of 00:00: 00:00 mouth [place] 00 :00 daily. [facility] cefUROXime 2022-0 Yes [id number] 250mg Take 1 [facility] 250 mg 2-14 tablet by [facility] tablet 00:00: mouth 2 00 (two) Medical times Branch daily. cefUROXime 3-0 Yes [id number] 250mg Take 1 [facility] 250 mg 2-14 tablet by [facility] tablet 00:00: mouth 2 00 (two) Medical times Branch daily. cefUROXime 3-0 Yes [id number] 250mg Take 1 [facility] 250 mg 2-14 tablet by [facility] tablet 00:00: mouth 2 00 (two) Medical times Branch daily. cefUROXime 2023-0 Yes [id number] 250mg Take 1 [facility] 250 mg 2-14 tablet by [facility] of tablet 00:00: mouth 2 00 (two) Medical times Branch daily. cefUROXime 2023-0 Yes [id number] 250mg Take 1 [facility] 250 mg 2-14 tablet by [facility] tablet 00:00: mouth 2 00 (two) Medical times Branch daily. cefUROXime 2023-0 Yes [id number] 250mg Take 1 [facility] 250 mg 2-14 tablet by [facility] tablet 00:00: mouth 2 [place] 00 (two) Medical times Branch daily. cefUROXime 2023-0 Yes [id number] 250mg Take 1 [facility] 250 mg 2-14 tablet by [facility] tablet 00:00: mouth 2 [place] 00 (two) Medical times Branch daily. cefUROXime 2023-0 Yes [id number] 250mg Take 1 [facility] 250 mg 2-14 tablet by [facility] of tablet 00:00: mouth 2 [place] 00 (two) Medical times Branch daily. cefUROXime 2023-0 2023- No [id number] 250mg Take 1 [facility] 250 mg 2-14 04-04 tablet by [facility] tablet 00:00: 00:00 mouth 2 [place] 00 :00 (two) Medical times Branch daily. cefUROXime 2023-0 2023- No [id number] 250mg Take 1 [facility] 250 mg 2-14 04-04 tablet by [facility] tablet 00:00: 00:00 mouth 2 [place] 00 :00 (two) Medical times Branch daily. cefdinir 2023-0 Yes [id number] 300mg Take 1 [facility] [place] 300 mg 2-09 capsule by [facility] capsule 00:00: mouth [place] 00 every 12 Medical (twelve) Branch hours. cefdinir 2023-0 Yes [id number] 300mg Take 1 [facility] [place] 300 mg 2-09 capsule by [facility] of capsule 00:00: mouth [place] 00 every 12 Medical (twelve) Branch hours. ferrous 3-0 Yes [id number] 324mg Take 1 [facility] briana sulfate 324 1-31 tablet by [facility] of mg (65 mg 00:00: mouth [place] iron) EC 00 daily with Medic al tablet breakfast. Branch ferrous 3-0 Yes [id number] 324mg Take 1 [facility] [place] sulfate 324 1-31 tablet by [facility] of mg (65 mg 00:00: mouth [place] iron) EC 00 daily with Medic al tablet breakfast. Branch ferrous 2023-0 Yes [id number] 324mg Take 1 [facility] [place] sulfate 324 1-31 tablet by [facility] of mg (65 mg 00:00: mouth [place] iron) EC 00 daily with Medic al tablet breakfast. Branch ferrous 3-0 Yes [id number] 324mg Take 1 [facility] [place] sulfate 324 1-31 tablet by [facility] of mg (65 mg 00:00: mouth [place] iron) EC 00 daily with Medic al tablet breakfast. Branch ferrous 3-0 Yes [id number] 324mg Take 1 [facility] [place] sulfate 324 1-31 tablet by [facility] of mg (65 mg 00:00: mouth [place] iron) EC 00 daily with Medic al tablet breakfast. Branch ferrous 3-0 Yes [id number] 324mg Take 1 [facility] [place] sulfate 324 1-31 tablet by [facility] of mg (65 mg 00:00: mouth [place] iron) EC 00 daily with Medic al tablet breakfast. Branch ferrous 3-0 Yes [id number] 324mg Take 1 [facility] [place] sulfate 324 1-31 tablet by [facility] of mg (65 mg 00:00: mouth [place] iron) EC 00 daily with Medic al tablet breakfast. Branch ferrous 3-0 Yes [id number] 324mg Take 1 [facility] [place] sulfate 324 1-31 tablet by [facility] of mg (65 mg 00:00: mouth [place] iron) EC 00 daily with Medic al tablet breakfast. Branch ferrous 3-0 Yes [id number] 324mg Take 1 [facility] [place] sulfate 324 1-31 tablet by [facility] of mg (65 mg 00:00: mouth [place] iron) EC 00 daily with Medic al tablet breakfast. Branch ferrous 3-0 Yes [id number] 324mg Take 1 [facility] [place] sulfate 324 1-31 tablet by [facility] of mg (65 mg 00:00: mouth [place] iron) EC 00 daily with Medic al tablet breakfast. Branch ferrous 3-0 Yes [id number] 324mg Take 1 [facility] [place] sulfate 324 1-31 tablet by [facility] of mg (65 mg 00:00: mouth [place] iron) EC 00 daily with Medic al tablet breakfast. Branch ferrous 3-0 Yes [id number] 324mg Take 1 [facility] [place] sulfate 324 1-31 tablet by [facility] of mg (65 mg 00:00: mouth [place] iron) EC 00 daily with Medic al tablet breakfast. Branch ferrous 3-0 Yes [id number] 324mg Take 1 [facility] [place] sulfate 324 1-31 tablet by [facility] of mg (65 mg 00:00: mouth [place] iron) EC 00 daily with Medic al tablet breakfast. Branch ferrous 3-0 Yes [id number] 324mg Take 1 [facility] [place] sulfate 324 1-31 tablet by [facility] of mg (65 mg 00:00: mouth [place] iron) EC 00 daily with Medic al tablet breakfast. Branch ferrous 3-0 Yes [id number] 324mg Take 1 Un [place] sulfate 324 1-31 tablet by [facility] of mg (65 mg 00:00: mouth [place] iron) EC 00 daily with Medic al tablet breakfast. Branch ferrous 3-0 Yes [id number] 324mg Take 1 [facility] [place] sulfate 324 1-31 tablet by [facility]y of mg (65 mg 00:00: mouth [place] iron) EC 00 daily with Medic al tablet breakfast. Branch ferrous 2022-0 Yes [id number] 324mg Take 1 [facility] [place] sulfate 324 1-31 tablet by [facility] of mg (65 mg 00:00: mouth [place] iron) EC 00 daily with Medic al tablet breakfast. Branch ferrous 2022-0 Yes [id number] 324mg Take 1 Un [place] sulfate 324 1-31 tablet by [facility]y of mg (65 mg 00:00: mouth [place] iron) EC 00 daily with Medic al tablet breakfast. Branch ferrous 2022-0 Yes [id number] 324mg Take 1 [facility] [place] sulfate 324 1-31 tablet by ity of mg (65 mg 00:00: mouth [place] iron) EC 00 daily with Medic al tablet breakfast. Branch ferrous 2022-0 Yes [id number] 324mg Take 1 Un [place] sulfate 324 1-31 tablet by ity of mg (65 mg 00:00: mouth [place] iron) EC 00 daily with Medic al tablet breakfast. Branch ferrous 3-0 Yes [id number] 324mg Take 1 Un [place] sulfate 324 1-31 tablet by [facility]y of mg (65 mg 00:00: mouth [place] iron) EC 00 daily with Medic al tablet breakfast. Branch ferrous 3-0 Yes [id number] 324mg Take 1 Un [place] sulfate 324 1-31 tablet by [facility]y of mg (65 mg 00:00: mouth [place] iron) EC 00 daily with Medic al tablet breakfast. Branch ferrous 3-0 Yes [id number] 324mg Take 1 Un [place] sulfate 324 1-31 tablet by ity of mg (65 mg 00:00: mouth [place] iron) EC 00 daily with Medic al tablet breakfast. Branch ferrous 3-0 Yes [id number] 324mg Take 1 Un [place] sulfate 324 1-31 tablet by ity of mg (65 mg 00:00: mouth [place] iron) EC 00 daily with Medic al tablet breakfast. Branch ferrous 2023-0 Yes [id number] 324mg Take 1 Un [place] sulfate 324 1-31 tablet by ity of mg (65 mg 00:00: mouth [place] iron) EC 00 daily with Medic al tablet breakfast. Branch ferrous 2022-0 Yes [id number] 324mg Take 1 Un [place] sulfate 324 1-31 tablet by [facility]y of mg (65 mg 00:00: mouth [place] iron) EC 00 daily with Medic al tablet breakfast. Branch ferrous 3-0 Yes [id number] 324mg Take 1 Un [place] sulfate 324 1-31 tablet by ity of mg (65 mg 00:00: mouth [place] iron) EC 00 daily with Medic al tablet breakfast. Branch ferrous 2022-0 Yes [id number] 324mg Take 1 Un [place] sulfate 324 1-31 tablet by ity of mg (65 mg 00:00: mouth [place] iron) EC 00 daily with Medic al tablet breakfast. Branch ferrous 2022-0 Yes [id number] 324mg Take 1 Un [place] sulfate 324 1-31 tablet by ity of mg (65 mg 00:00: mouth [place] iron) EC 00 daily with Medic al tablet breakfast. Branch ferrous 2022-0 Yes [id number] 324mg Take 1 Un [place] sulfate 324 1-31 tablet by ity of mg (65 mg 00:00: mouth [place] iron) EC 00 daily with Medic al tablet breakfast. Branch ferrous 2022-0 Yes [id number] 324mg Take 1 Un bri[place] sulfate 324 1-31 tablet by ity of mg (65 mg 00:00: mouth [place] iron) EC 00 daily with Medic al tablet breakfast. Branch ferrous 3-0 Yes [id number] 324mg Take 1 Un [place] sulfate 324 1-31 tablet by ity of mg (65 mg 00:00: mouth [place] iron) EC 00 daily with Medic al tablet breakfast. Branch ferrous 3-0 Yes [id number] 324mg Take 1 Un bri[place] sulfate 324 1-31 tablet by ity of mg (65 mg 00:00: mouth [place] iron) EC 00 daily with Medic al tablet breakfast. Branch ferrous 3-0 Yes [id number] 324mg Take 1 Un bri[place] sulfate 324 1-31 tablet by ity of mg (65 mg 00:00: mouth [place] iron) EC 00 daily with Medic al tablet breakfast. Branch ferrous 3-0 Yes [id number] 324mg Take 1 Un bri[place] sulfate 324 1-31 tablet by ity of mg (65 mg 00:00: mouth [place] iron) EC 00 daily with Medic al tablet breakfast. Branch ferrous 3-0 Yes [id number] 324mg Take 1 Un briana sulfate 324 1-31 tablet by ity of mg (65 mg 00:00: mouth [place] iron) EC 00 daily with Medic al tablet breakfast. Branch ferrous 3-0 Yes [id number] 324mg Take 1 Un briana sulfate 324 1-31 tablet by ity of mg (65 mg 00:00: mouth [place] iron) EC 00 daily with Medic [facility] tablet breakfast. Branch ferrous 3-0 Yes [id number] 324mg Take 1 Un briana sulfate 324 1-31 tablet by [facility] of mg (65 mg 00:00: mouth [place] iron) EC 00 daily with Medic al tablet breakfast. Branch ferrous 3-0 Yes [id number] 324mg Take 1 Un briana sulfate 324 1-31 tablet by [facility] of mg (65 mg 00:00: mouth [place] iron) EC 00 daily with Medic al tablet breakfast. Branch ferrous 3-0 Yes [id number] 324mg Take 1 Un briana sulfate 324 1-31 tablet by [facility] of mg (65 mg 00:00: mouth [place] iron) EC 00 daily with Medic al tablet breakfast. Branch ferrous 3-0 Yes [id number] 324mg Take 1 Un briana sulfate 324 1-31 tablet by [facility] of mg (65 mg 00:00: mouth [place] iron) EC 00 daily with Medic al tablet breakfast. Branch ferrous 3-0 Yes [id number] 324mg Take 1 Un briana sulfate 324 1-31 tablet by [facility] of mg (65 mg 00:00: mouth [place] iron) EC 00 daily with Medic al tablet breakfast. Branch ferrous 3-0 Yes [id number] 324mg Take 1 Un briana sulfate 324 1-31 tablet by [facility] of mg (65 mg 00:00: mouth [place] iron) EC 00 daily with Medic al tablet breakfast. Branch ferrous 3-0 Yes [id number] 324mg Take 1 Un briana sulfate 324 1-31 tablet by [facility] of mg (65 mg 00:00: mouth [place] iron) EC 00 daily with Medic al tablet breakfast. Branch ferrous 3-0 Yes [id number] 324mg Take 1 Un briana sulfate 324 1-31 tablet by [facility] of mg (65 mg 00:00: mouth [place] iron) EC 00 daily with Medic al tablet breakfast. Branch ferrous 3-0 Yes [id number] 324mg Take 1 Un briana sulfate 324 1-31 tablet by [facility] of mg (65 mg 00:00: mouth [place] iron) EC 00 daily with Medic al tablet breakfast. Branch ferrous 2023-0 Yes [id number] 324mg Take 1 Un briana sulfate 324 1-31 tablet by [facility] of mg (65 mg 00:00: mouth [place] iron) EC 00 daily with Medic al tablet breakfast. Branch ferrous 3-0 Yes [id number] 324mg Take 1 Un briana sulfate 324 1-31 tablet by [facility] of mg (65 mg 00:00: mouth [place] iron) EC 00 daily with Medic al tablet breakfast. Branch ferrous 3-0 Yes [id number] 324mg Take 1 Un briana sulfate 324 1-31 tablet by [facility] of mg (65 mg 00:00: mouth [place] iron) EC 00 daily with Medic al tablet breakfast. Branch ferrous 3-0 Yes [id number] 324mg Take 1 Un briana sulfate 324 1-31 tablet by [facility] of mg (65 mg 00:00: mouth [place] iron) EC 00 daily with Medic al tablet breakfast. Branch ferrous 3-0 Yes [id number] 324mg Take 1 Un briana sulfate 324 1-31 tablet by [facility] of mg (65 mg 00:00: mouth [place] iron) EC 00 daily with Medic al tablet breakfast. Branch ferrous 3-0 Yes [id number] 324mg Take 1 Un briana sulfate 324 1-31 tablet by [facility] of mg (65 mg 00:00: mouth [place] iron) EC 00 daily with Medic al tablet breakfast. Branch ferrous 3-0 Yes [id number] 324mg Take 1 Un briana sulfate 324 1-31 tablet by [facility] of mg (65 mg 00:00: mouth [place] iron) EC 00 daily with Medic al tablet breakfast. Branch ferrous 2023-0 Yes [id number] 324mg Take 1 Un briana sulfate 324 1-31 tablet by [facility] of mg (65 mg 00:00: mouth [place] iron) EC 00 daily with Medic al tablet breakfast. Branch ferrous 2023-0 Yes [id number] 324mg Take 1 Un briana sulfate 324 1-31 tablet by [facility] of mg (65 mg 00:00: mouth [place] iron) EC 00 daily with Medic al tablet breakfast. Branch ferrous 2022-0 Yes [id number] 324mg Take 1 Un briana sulfate 324 1-31 tablet by [facility] of mg (65 mg 00:00: mouth [place] iron) EC 00 daily with Medic al tablet breakfast. Branch ferrous 0 Yes [id number] 324mg Take 1 Un briana sulfate 324 1-31 tablet by [facility] mg (65 mg 00:00: mouth [place] iron) EC 00 daily with Medic al tablet breakfast. Branch ferrous 0 Yes [id number] 324mg Take 1 Un briana sulfate 324 1-31 tablet by [facility] of mg (65 mg 00:00: mouth [place] iron) EC 00 daily with Medic al tablet breakfast. Branch ferrous 0 Yes [id number] 324mg Take 1 Un briana sulfate 324 1-31 tablet by [facility] of mg (65 mg 00:00: mouth [place] iron) EC 00 daily with Medic al tablet breakfast. Branch ferrous 2022- No [id number] 324mg Take 1 U nivers sulfate 324 1-31 06-27 tablet by it y of mg (65 mg 00:00: 00:00 mouth [place] iron) EC 00 :00 daily with Medic al tablet breakfast. Branch ferrous 2022- No [id number] 324mg Take 1 U nivers sulfate 324 1-31 06-27 tablet by it y of mg (65 mg 00:00: 00:00 mouth [place] iron) EC 00 :00 daily with Medic al tablet breakfast. Branch ferrous 2022- No [id number] 324mg Take 1 U nivers sulfate 324 1-31 -27 tablet by it y of mg (65 mg 00:00: 00:00 mouth [place] iron) EC 00 :00 daily with Medic al tablet breakfast. Branch losartan 50 2022-0 Yes [id number] 50mg Take 1 [facility] mg tablet 1-27 tablet by [facility] o f 00:00: mouth [place] 00 daily. [facility] furosemide 2022-0 Yes [id number] 20mg Take 1 [facility] nivers 20 mg 1-27 tablet by [facility] of tablet 00:00: mouth [place] 00 daily. [facility] losartan 50 2022-0 Yes [id number] 50mg Take 1 [facility] mg tablet 1-27 tablet by [facility] o f 00:00: mouth [place] 00 daily. [facility] furosemide 2022-0 Yes [id number] 20mg Take 1 [facility] nivers 20 mg 1-27 tablet by [facility] of tablet 00:00: mouth [place] 00 daily. [facility] losartan 50 2022-0 Yes [id number] 50mg Take 1 [facility] mg tablet 1-27 tablet by [facility] o f 00:00: mouth [place] 00 daily. [facility] furosemide 3-0 Yes [id number] 20mg Take 1 [facility] nivers 20 mg 1-27 tablet by [facility] of tablet 00:00: mouth [place] 00 daily. [facility] losartan 50 2022-0 Yes [id number] 50mg Take 1 [facility] mg tablet 1-27 tablet by [facility] o f 00:00: mouth [place] 00 daily. [facility] furosemide 2022-0 Yes [id number] 20mg Take 1 [facility] nivers 20 mg 1-27 tablet by [facility] of tablet 00:00: mouth [place] 00 daily. [facility] losartan 50 2022-0 Yes [id number] 50mg Take 1 [facility] mg tablet 1-27 tablet by [facility]y o f 00:00: mouth [place] 00 daily. [facility] furosemide 2022-0 Yes [id number] 20mg Take 1 [facility] nivers 20 mg 1-27 tablet by [facility] of tablet 00:00: mouth [place] 00 daily. [facility] losartan 50 2022-0 Yes [id number] 50mg Take 1 [facility] mg tablet 1-27 tablet by [facility] o f 00:00: mouth [place] 00 daily. [facility] furosemide 2022-0 Yes [id number] 20mg Take 1 [facility] nivers 20 mg 1-27 tablet by [facility] of tablet 00:00: mouth [place] 00 daily. [facility] losartan 50 2022-0 Yes [id number] 50mg Take 1 [facility] mg tablet 1-27 tablet by [facility]y o f 00:00: mouth [place] 00 daily. [facility] furosemide 3-0 Yes [id number] 20mg Take 1 [facility] nivers 20 mg 1-27 tablet by [facility] of tablet 00:00: mouth [place] 00 daily. [facility] losartan 50 2022-0 Yes [id number] 50mg Take 1 [facility] mg tablet 1-27 tablet by [facility] o f 00:00: mouth [place] 00 daily. [facility] furosemide 3-0 Yes [id number] 20mg Take 1 [facility] nivers 20 mg 1-27 tablet by [facility] of tablet 00:00: mouth [place] 00 daily. [facility] losartan 50 2022-0 Yes [id number] 50mg Take 1 [facility] mg tablet 1-27 tablet by [facility]y o f 00:00: mouth [place] 00 daily. [facility] furosemide 2022-0 Yes [id number] 20mg Take 1 [facility] nivers 20 mg 1-27 tablet by [facility] of tablet 00:00: mouth [place] 00 daily. [facility] losartan 50 2022-0 Yes [id number] 50mg Take 1 [facility] mg tablet 1-27 tablet by [facility] o f 00:00: mouth [place] 00 daily. [facility] furosemide 3-0 Yes [id number] 20mg Take 1 [facility] nivers 20 mg 1-27 tablet by [facility] of tablet 00:00: mouth [place] 00 daily. [facility] losartan 50 2022-0 Yes [id number] 50mg Take 1 [facility] mg tablet 1-27 tablet by [facility] o f 00:00: mouth [place] 00 daily. [facility] furosemide 2022-0 Yes [id number] 20mg Take 1 [facility] nivers 20 mg 1-27 tablet by [facility] of tablet 00:00: mouth [place] 00 daily. [facility] losartan 50 2022-0 Yes [id number] 50mg Take 1 [facility] mg tablet 1-27 tablet by [facility] o f 00:00: mouth [place] 00 daily. [facility] furosemide 2022-0 Yes [id number] 20mg Take 1 [facility] nivers 20 mg 1-27 tablet by [facility] of tablet 00:00: mouth [place] 00 daily. [facility] losartan 50 2022-0 Yes [id number] 50mg Take 1 [facility] mg tablet 1-27 tablet by [facility] o f 00:00: mouth [place] 00 daily. [facility] furosemide 3-0 Yes [id number] 20mg Take 1 [facility] nivers 20 mg 1-27 tablet by [facility] of tablet 00:00: mouth [place] 00 daily. [facility] losartan 50 2022-0 Yes [id number] 50mg Take 1 [facility] mg tablet 1-27 tablet by [facility] o f 00:00: mouth [place] 00 daily. [facility] furosemide 3-0 Yes [id number] 20mg Take 1 [facility] nivers 20 mg 1-27 tablet by [facility] of tablet 00:00: mouth [place] 00 daily. [facility] losartan 50 2022-0 Yes [id number] 50mg Take 1 [facility] mg tablet 1-27 tablet by [facility] o f 00:00: mouth [place] 00 daily. [facility] furosemide 3-0 Yes [id number] 20mg Take 1 [facility] nivers 20 mg 1-27 tablet by [facility] of tablet 00:00: mouth [place] 00 daily. [facility] losartan 50 0 Yes [id number] 50mg Take 1 [facility] mg tablet -27 tablet by [facility] o f 00:00: mouth [place] 00 daily. [facility] furosemide Yes [id number] 20mg Take 1 [facility] nivers 20 mg 1-27 tablet by [facility] of tablet 00:00: mouth [place] 00 daily. [facility] furosemide Yes [id number] 20mg Take 1 [facility] nivers 20 mg 1-27 tablet by [facility] of tablet 00:00: mouth [place] 00 daily. [facility] furosemide Yes [id number] 20mg Take 1 [facility] nivers 20 mg 1-27 tablet by [facility] of tablet 00:00: mouth [place] 00 daily. [facility] furosemide Yes [id number] 20mg Take 1 [facility] nivers 20 mg 1-27 tablet by [facility] of tablet 00:00: mouth [place] 00 daily. [facility] furosemide 2022- No [id number] 20mg Take 1 [facility] 20 mg 1-27 04-04 tablet by [facility] of tablet 00:00: 00:00 mouth [place] 00 :00 daily. [facility] furosemide 0 2022- No [id number] 20mg Take 1 [facility] 20 mg 1-27 04-04 tablet by [facility] of tablet 00:00: 00:00 mouth [place] 00 :00 daily. [facility] losartan 50 0 2022- No [id number] 50mg Take 1 [facility] mg tablet 03-11 03-13 tablet by [facility] of 00:00: 00:00 mouth [place] 00 :00 daily. [facility] carvediloL 2021-02 Yes [id number] 6.25mg Take 1 [facility] 6.25 mg 2-09 tablet by [facility] of tablet 00:00: mouth 2 [place] 00 (two) Medical times Branch daily with meals. atorvastati 2021-02 Yes [id number] 20mg Take 1 [facility] n 20 mg 2-09 tablet by [facility] of tablet 00:00: mouth at [place] 00 bedtime. [facility] omeprazole 2021-02 Yes [id number] 1{tbl} Take 1 [facility] 20 mg TbLD 2-09 tablet by [facility]y of 00:00: mouth [place] 00 daily. [facility] tolterodine 2021-02 Yes [id number] 2mg Take 1 [facility] [place] 2 mg 24 2-09 capsule by [facility] of hr capsule 00:00: mouth [place] 00 daily. [facility] carvediloL 2021-02 Yes [id number] 6.25mg Take 1 [facility] 6.25 mg 2-09 tablet by [facility] of tablet 00:00: mouth 2 (two) Medical times Branch daily with meals. atorvastati 2021-02 Yes [id number] 20mg Take 1 [facility] n 20 mg 2-09 tablet by [facility] of tablet 00:00: mouth at [place] 00 bedtime. [facility] omeprazole 2021-02 Yes [id number] 1{tbl} Take 1 [facility] 20 mg TbLD 2-09 tablet by [facility]y of 00:00: mouth [place] 00 daily. [facility] tolterodine 2021-02 Yes [id number] 2mg Take 1 [facility] [place] 2 mg 24 2-09 capsule by [facility] of hr capsule 00:00: mouth [place] 00 daily. [facility] carvediloL 2021-02 Yes [id number] 6.25mg Take 1 [facility] 6.25 mg 2-09 tablet by [facility] of tablet 00:00: mouth 2 (two) Medical times Branch daily with meals. atorvastati 2021-02 Yes [id number] 20mg Take 1 [facility] n 20 mg 2-09 tablet by [facility] of tablet 00:00: mouth at [place] 00 bedtime. [facility] omeprazole 2021-02 Yes [id number] 1{tbl} Take 1 [facility] 20 mg TbLD 2-09 tablet by [facility]y of 00:00: mouth [place] 00 daily. [facility] tolterodine 2021-02 Yes [id number] 2mg Take 1 [facility] [place] 2 mg 24 2-09 capsule by [facility] of hr capsule 00:00: mouth [place] 00 daily. [facility] carvediloL 2021-02 Yes [id number] 6.25mg Take 1 [facility] 6.25 mg 2-09 tablet by [facility] of tablet 00:00: mouth 2 00 (two) Medical times [facility] daily with meals. atorvastati 2021-02 Yes [id number] 20mg Take 1 [facility] n 20 mg 2-09 tablet by [facility] of tablet 00:00: mouth at [place] 00 bedtime. [facility] omeprazole 2021-02 Yes [id number] 1{tbl} Take 1 [facility] 20 mg TbLD 2-09 tablet by [facility]y of 00:00: mouth [place] 00 daily. [facility] tolterodine 2021-02 Yes [id number] 2mg Take 1 [facility] [place] 2 mg 24 2-09 capsule by [facility] of hr capsule 00:00: mouth [place] 00 daily. [facility] carvediloL 2021-02 Yes [id number] 6.25mg Take 1 [facility] 6.25 mg 2-09 tablet by [facility] of tablet 00:00: mouth 2 00 (two) Medical times Branch daily with meals. atorvastati 2021-02 Yes [id number] 20mg Take 1 [facility] n 20 mg 2-09 tablet by [facility] of tablet 00:00: mouth at [place] 00 bedtime. [facility] omeprazole 2021-02 Yes [id number] 1{tbl} Take 1 [facility] 20 mg TbLD 2-09 tablet by [facility]y of 00:00: mouth [place] 00 daily. [facility] tolterodine 2021-02 Yes [id number] 2mg Take 1 [facility] [place] 2 mg 24 2-09 capsule by [facility] of hr capsule 00:00: mouth [place] 00 daily. [facility] carvediloL 2021-02 Yes [id number] 6.25mg Take 1 [facility] 6.25 mg 2-09 tablet by [facility] of tablet 00:00: mouth 2 (two) Medical times Branch daily with meals. atorvastati 2021-02 Yes [id number] 20mg Take 1 [facility] n 20 mg 2-09 tablet by [facility] of tablet 00:00: mouth at [place] 00 bedtime. [facility] omeprazole 2021-02 Yes [id number] 1{tbl} Take 1 [facility] 20 mg TbLD 2-09 tablet by [facility]y of 00:00: mouth [place] 00 daily. [facility] tolterodine 2021-02 Yes [id number] 2mg Take 1 [facility] [place] 2 mg 24 2-09 capsule by [facility] of hr capsule 00:00: mouth [place] 00 daily. [facility] carvediloL 2021-02 Yes [id number] 6.25mg Take 1 [facility] 6.25 mg 2-09 tablet by [facility] of tablet 00:00: mouth 2 00 (two) Medical times Branch daily with meals. atorvastati 2021-02 Yes [id number] 20mg Take 1 [facility] n 20 mg 2-09 tablet by [facility] of tablet 00:00: mouth at [place] 00 bedtime. [facility] omeprazole 2021-02 Yes [id number] 1{tbl} Take 1 [facility] 20 mg TbLD 2-09 tablet by [facility]y of 00:00: mouth [place] 00 daily. [facility] tolterodine 2021-02 Yes [id number] 2mg Take 1 [facility] [place] 2 mg 24 2-09 capsule by [facility] of hr capsule 00:00: mouth [place] 00 daily. [facility] carvediloL 2021-02 Yes [id number] 6.25mg Take 1 [facility] 6.25 mg 2-09 tablet by [facility] of tablet 00:00: mouth 2 (two) Medical times Branch daily with meals. atorvastati 2021-02 Yes [id number] 20mg Take 1 [facility] n 20 mg 2-09 tablet by [facility] of tablet 00:00: mouth at [place] 00 bedtime. [facility] omeprazole 2021-02 Yes [id number] 1{tbl} Take 1 [facility] 20 mg TbLD 2-09 tablet by [facility]y of 00:00: mouth [place] 00 daily. [facility] tolterodine 2021-02 Yes [id number] 2mg Take 1 [facility] [place] 2 mg 24 2-09 capsule by [facility] of hr capsule 00:00: mouth [place] 00 daily. [facility] carvediloL 2021-02 Yes [id number] 6.25mg Take 1 [facility] 6.25 mg 2-09 tablet by [facility] of tablet 00:00: mouth (two) Medical times [facility] daily with meals. atorvastati 2021-02 Yes [id number] 20mg Take 1 [facility] n 20 mg 2-09 tablet by [facility] of tablet 00:00: mouth at [place] 00 bedtime. [facility] omeprazole 2021-02 Yes [id number] 1{tbl} Take 1 [facility] 20 mg TbLD 2-09 tablet by [facility]y of 00:00: mouth [place] 00 daily. [facility] tolterodine 2021-02 Yes [id number] 2mg Take 1 [facility] [place] 2 mg 24 2-09 capsule by [facility] of hr capsule 00:00: mouth [place] 00 daily. [facility] carvediloL 2021-02 Yes [id number] 6.25mg Take 1 [facility] 6.25 mg 2-09 tablet by [facility] of tablet 00:00: mouth 2 00 (two) Medical times [facility] daily with meals. atorvastati 2021-02 Yes [id number] 20mg Take 1 [facility] n 20 mg 2-09 tablet by [facility] of tablet 00:00: mouth at [place] 00 bedtime. [facility] omeprazole 2021-02 Yes [id number] 1{tbl} Take 1 [facility] 20 mg TbLD 2-09 tablet by [facility]y of 00:00: mouth [place] 00 daily. [facility] tolterodine 2021-02 Yes [id number] 2mg Take 1 [facility] [place] 2 mg 24 2-09 capsule by [facility] of hr capsule 00:00: mouth [place] 00 daily. [facility] carvediloL 2021-02 Yes [id number] 6.25mg Take 1 [facility] 6.25 mg 2-09 tablet by [facility] of tablet 00:00: mouth 2 (two) Medical times [facility] daily with meals. atorvastati 2021-02 Yes [id number] 20mg Take 1 [facility] n 20 mg 2-09 tablet by [facility] of tablet 00:00: mouth at [place] 00 bedtime. [facility] omeprazole 2021-02 Yes [id number] 1{tbl} Take 1 [facility] 20 mg TbLD 2-09 tablet by [facility]y of 00:00: mouth [place] 00 daily. [facility] tolterodine 2021-02 Yes [id number] 2mg Take 1 [facility] [place] 2 mg 24 2-09 capsule by [facility] of hr capsule 00:00: mouth [place] 00 daily. [facility] carvediloL 2021-02 Yes [id number] 6.25mg Take 1 [facility] 6.25 mg 2-09 tablet by [facility] of tablet 00:00: mouth 2 (two) Medical times [facility] daily with meals. atorvastati 2021-02 Yes [id number] 20mg Take 1 [facility] n 20 mg 2-09 tablet by [facility] of tablet 00:00: mouth at [place] 00 bedtime. [facility] omeprazole 2021-02 Yes [id number] 1{tbl} Take 1 [facility] 20 mg TbLD 2-09 tablet by [facility] of 00:00: mouth [place] 00 daily. [facility] tolterodine 2021-02 Yes [id number] 2mg Take 1 [facility] [place] 2 mg 24 2-09 capsule by [facility] of hr capsule 00:00: mouth [place] 00 daily. [facility] carvediloL 2021-02 Yes [id number] 6.25mg Take 1 [facility] 6.25 mg 2-09 tablet by [facility] of tablet 00:00: mouth 2 (two) Medical times [facility] daily with meals. atorvastati 2021-02 Yes [id number] 20mg Take 1 [facility] n 20 mg 2-09 tablet by [facility] of tablet 00:00: mouth at [place] 00 bedtime. [facility] omeprazole 2021-02 Yes [id number] 1{tbl} Take 1 [facility] 20 mg TbLD 2-09 tablet by [facility]y of 00:00: mouth [place] 00 daily. [facility] tolterodine 2021-02 Yes [id number] 2mg Take 1 [facility] [place] 2 mg 24 2-09 capsule by [facility] of hr capsule 00:00: mouth [place] 00 daily. [facility] carvediloL 2021-02 Yes [id number] 6.25mg Take 1 [facility] 6.25 mg 2-09 tablet by [facility] of tablet 00:00: mouth 2 00 (two) Medical times [facility] daily with meals. atorvastati 2021-02 Yes [id number] 20mg Take 1 [facility] n 20 mg 2-09 tablet by [facility] of tablet 00:00: mouth at [place] 00 bedtime. [facility] omeprazole 2021-02 Yes [id number] 1{tbl} Take 1 [facility] 20 mg TbLD 2-09 tablet by [facility]y of 00:00: mouth [place] 00 daily. [facility] tolterodine 2021-02 Yes [id number] 2mg Take 1 [facility] [place] 2 mg 24 2-09 capsule by [facility] of hr capsule 00:00: mouth [place] 00 daily. [facility] carvediloL 2021-02 Yes [id number] 6.25mg Take 1 [facility] 6.25 mg 2-09 tablet by [facility] of tablet 00:00: mouth 2 00 (two) Medical times [facility] daily with meals. atorvastati 2021-02 Yes [id number] 20mg Take 1 [facility] n 20 mg 2-09 tablet by [facility] of tablet 00:00: mouth at [place] 00 bedtime. [facility] omeprazole 2021-02 Yes [id number] 1{tbl} Take 1 [facility] 20 mg TbLD 2-09 tablet by [facility]y of 00:00: mouth [place] 00 daily. [facility] tolterodine 2021-02 Yes [id number] 2mg Take 1 [facility] [place] 2 mg 24 2-09 capsule by [facility] of hr capsule 00:00: mouth [place] 00 daily. [facility] carvediloL 2021-02 Yes [id number] 6.25mg Take 1 [facility] 6.25 mg 2-09 tablet by [facility] of tablet 00:00: mouth 2 (two) Medical times [facility] daily with meals. atorvastati 2021-02 Yes [id number] 20mg Take 1 [facility] n 20 mg 2-09 tablet by [facility] of tablet 00:00: mouth at [place] 00 bedtime. [facility] omeprazole 2021-02 Yes [id number] 1{tbl} Take 1 [facility] 20 mg TbLD 2-09 tablet by [facility] of 00:00: mouth [place] 00 daily. [facility] tolterodine 2021-02 Yes [id number] 2mg Take 1 [facility] [place] 2 mg 24 2-09 capsule by [facility] of hr capsule 00:00: mouth [place] 00 daily. [facility] carvediloL 2021-02 Yes [id number] 6.25mg Take 1 [facility] 6.25 mg 2-09 tablet by [facility] of tablet 00:00: mouth 2 (two) Medical times [facility] daily with meals. atorvastati 2021-02 Yes [id number] 20mg Take 1 [facility] n 20 mg 2-09 tablet by [facility] of tablet 00:00: mouth at [place] 00 bedtime. [facility] omeprazole 2021-02 Yes [id number] 1{tbl} Take 1 [facility] 20 mg TbLD 2-09 tablet by [facility] of 00:00: mouth 00 daily. [facility] tolterodine 2021-02 Yes [id number] 2mg Take 1 [facility] [place] 2 mg 24 2-09 capsule by [facility] of hr capsule 00:00: mouth 00 daily. [facility] carvediloL 2021-02 Yes [id number] 6.25mg Take 1 [facility] 6.25 mg 2-09 tablet by [facility] of tablet 00:00: mouth (two) Medical times [facility] daily with meals. atorvastati 2021-02 Yes [id number] 20mg Take 1 [facility] n 20 mg 2-09 tablet by [facility] of tablet 00:00: mouth at [place] 00 bedtime. [facility] tolterodine 2021-02 Yes [id number] 2mg Take 1 [facility] [place] 2 mg 24 2-09 capsule by [facility] of hr capsule 00:00: mouth [place] 00 daily. [facility] carvediloL 2021-02 Yes [id number] 6.25mg Take 1 [facility] 6.25 mg 2-09 tablet by [facility] of tablet 00:00: mouth (two) Medical times [facility] daily with meals. atorvastati 2021-02 Yes [id number] 20mg Take 1 [facility] n 20 mg 2-09 tablet by [facility] of tablet 00:00: mouth at [place] 00 bedtime. [facility] tolterodine 2021-02 Yes [id number] 2mg Take 1 [facility] [place] 2 mg 24 2-09 capsule by [facility] of hr capsule 00:00: mouth [place] 00 daily. [facility] carvediloL 2021-02 Yes [id number] 6.25mg Take 1 [facility] 6.25 mg 2-09 tablet by [facility] of tablet 00:00: mouth 2 00 (two) Medical times [facility] daily with meals. atorvastati 2021-02 Yes [id number] 20mg Take 1 [facility] n 20 mg 2-09 tablet by [facility] of tablet 00:00: mouth at [place] 00 bedtime. [facility] tolterodine 2021-02 Yes [id number] 2mg Take 1 [facility] [place] 2 mg 24 2-09 capsule by [facility] of hr capsule 00:00: mouth 00 daily. [facility] carvediloL 2021-02 Yes [id number] 6.25mg Take 1 [facility] 6.25 mg 2-09 tablet by [facility] of tablet 00:00: mouth 2 00 (two) Medical times [facility] daily with meals. atorvastati 2021-02 Yes [id number] 20mg Take 1 [facility] n 20 mg 2-09 tablet by [facility] of tablet 00:00: mouth at [place] 00 bedtime. [facility] tolterodine 2021-02 Yes [id number] 2mg Take 1 [facility] [place] 2 mg 24 2-09 capsule by [facility] of hr capsule 00:00: mouth 00 daily. [facility] carvediloL 2021-02 Yes [id number] 6.25mg Take 1 [facility] 6.25 mg 2-09 tablet by [facility] of tablet 00:00: mouth 2 00 (two) Medical times [facility] daily with meals. atorvastati 2021-02 Yes [id number] 20mg Take 1 [facility] n 20 mg 2-09 tablet by [facility] of tablet 00:00: mouth at [place] 00 bedtime. [facility] tolterodine 2021-02 Yes [id number] 2mg Take 1 [facility] [place] 2 mg 24 2-09 capsule by [facility] of hr capsule 00:00: mouth [place] 00 daily. [facility] carvediloL 2021-02 Yes [id number] 6.25mg Take 1 [facility] 6.25 mg 2-09 tablet by [facility] of tablet 00:00: mouth 2 (two) Medical times [facility] daily with meals. atorvastati 2021-02 Yes [id number] 20mg Take 1 [facility] n 20 mg 2-09 tablet by [facility] of tablet 00:00: mouth at [place] 00 bedtime. [facility] tolterodine 2021-02 Yes [id number] 2mg Take 1 [facility] [place] 2 mg 24 2-09 capsule by [facility] of hr capsule 00:00: mouth [place] 00 daily. [facility] carvediloL 2021-02 Yes [id number] 6.25mg Take 1 [facility] 6.25 mg 2-09 tablet by [facility] of tablet 00:00: mouth 2 (two) Medical times [facility] daily with meals. atorvastati 2021-02 Yes [id number] 20mg Take 1 [facility] n 20 mg 2-09 tablet by [facility] of tablet 00:00: mouth at [place] 00 bedtime. [facility] tolterodine 2021-02 Yes [id number] 2mg Take 1 [facility] [place] 2 mg 24 2-09 capsule by [facility] of hr capsule 00:00: mouth [place] 00 daily. [facility] carvediloL 2021-02 Yes [id number] 6.25mg Take 1 [facility] 6.25 mg 2-09 tablet by [facility] of tablet 00:00: mouth 2 (two) Medical times [facility] daily with meals. atorvastati 2021-02 Yes [id number] 20mg Take 1 [facility] n 20 mg 2-09 tablet by [facility] of tablet 00:00: mouth at [place] 00 bedtime. [facility] tolterodine 2021-02 Yes [id number] 2mg Take 1 [facility] [place] 2 mg 24 2-09 capsule by [facility] of hr capsule 00:00: mouth [place] 00 daily. [facility] carvediloL 2021-02 Yes [id number] 6.25mg Take 1 [facility] 6.25 mg 2-09 tablet by [facility] of tablet 00:00: mouth 2 (two) Medical times [facility] daily with meals. atorvastati 2021-02 Yes [id number] 20mg Take 1 [facility] n 20 mg 2-09 tablet by [facility] of tablet 00:00: mouth at [place] 00 bedtime. [facility] tolterodine 2021-02 Yes [id number] 2mg Take 1 [facility] [place] 2 mg 24 2-09 capsule by [facility] of hr capsule 00:00: mouth 00 daily. [facility] carvediloL 2021-02 Yes [id number] 6.25mg Take 1 [facility] 6.25 mg 2-09 tablet by [facility] of tablet 00:00: mouth 2 (two) Medical times [facility] daily with meals. atorvastati 2021-02 Yes [id number] 20mg Take 1 [facility] n 20 mg 2-09 tablet by [facility] of tablet 00:00: mouth at 00 bedtime. [facility] tolterodine 2021-02 Yes [id number] 2mg Take 1 [facility] [place] 2 mg 24 2-09 capsule by [facility] hr capsule 00:00: mouth 00 daily. [facility] carvediloL 2021-02 Yes [id number] 6.25mg Take 1 [facility] 6.25 mg 2-09 tablet by [facility] of tablet 00:00: mouth 2 (two) Medical times [facility] daily with meals. atorvastati 2021-02 Yes [id number] 20mg Take 1 [facility] n 20 mg 2-09 tablet by [facility] of tablet 00:00: mouth at bedtime. [facility] tolterodine 2021-02 Yes [id number] 2mg Take 1 [facility] [place] 2 mg 24 2-09 capsule by [facility] hr capsule 00:00: mouth 00 daily. [facility] carvediloL 2021-02 Yes [id number] 6.25mg Take 1 [facility] 6.25 mg 2-09 tablet by [facility] of tablet 00:00: mouth 2 (two) Medical times [facility] daily with meals. atorvastati 2021-02 Yes [id number] 20mg Take 1 [facility] n 20 mg 2-09 tablet by [facility] of tablet 00:00: mouth at 00 bedtime. [facility] tolterodine 2021-02 Yes [id number] 2mg Take 1 [facility] [place] 2 mg 24 2-09 capsule by [facility] of hr capsule 00:00: mouth 00 daily. [facility] carvediloL 2021-02 Yes [id number] 6.25mg Take 1 [facility] 6.25 mg 2-09 tablet by [facility] tablet 00:00: mouth 2 (two) [facility] times [facility] daily with meals. atorvastati 2021-02 Yes [id number] 20mg Take 1 [facility] n 20 mg 2-09 tablet by [facility] tablet 00:00: mouth at 00 bedtime. [facility] tolterodine 2021-02 Yes [id number] 2mg Take 1 [facility] [place] 2 mg 24 2-09 capsule by [facility] hr capsule 00:00: mouth 00 daily. [facility] carvediloL 2021-02 Yes [id number] 6.25mg Take 1 [facility] 6.25 mg 2-09 tablet by [facility] tablet 00:00: mouth 2 (two) [facility] times [facility] daily with meals. atorvastati 2021-02 Yes [id number] 20mg Take 1 [facility] n 20 mg 2-09 tablet by [facility] tablet 00:00: mouth at [place] 00 bedtime. [facility] tolterodine 2021-02 Yes [id number] 2mg Take 1 [facility] [place] 2 mg 24 2-09 capsule by [facility] hr capsule 00:00: mouth 00 daily. [facility] carvediloL 2021-02 Yes [id number] 6.25mg Take 1 [facility] 6.25 mg 2-09 tablet by [facility] tablet 00:00: mouth (two) [facility] times [facility] daily with meals. atorvastati 2021-02 Yes [id number] 20mg Take 1 [facility] n 20 mg 2-09 tablet by [facility] tablet 00:00: mouth at [place] 00 bedtime. [facility] tolterodine 2021-02 Yes [id number] 2mg Take 1 [facility] [place] 2 mg 24 2-09 capsule by [facility] hr capsule 00:00: mouth 00 daily. [facility] carvediloL 2021-02 Yes [id number] 6.25mg Take 1 [facility] 6.25 mg 2-09 tablet by [facility] tablet 00:00: mouth (two) [facility] times [facility] daily with meals. atorvastati 2021-02 Yes [id number] 20mg Take 1 [facility] n 20 mg 2-09 tablet by [facility] tablet 00:00: mouth at [place] 00 bedtime. [facility] tolterodine 2021-02 Yes [id number] 2mg Take 1 [facility] [place] 2 mg 24 2-09 capsule by [facility] hr capsule 00:00: mouth 00 daily. [facility] carvediloL 2021-02 Yes [id number] 6.25mg Take 1 [facility] 6.25 mg 2-09 tablet by [facility] tablet 00:00: mouth 2 (two) [facility] times [facility] daily with meals. atorvastati 2021-02 Yes [id number] 20mg Take 1 [facility] n 20 mg 2-09 tablet by [facility] tablet 00:00: mouth at [place] 00 bedtime. [facility] tolterodine 2021-02 Yes [id number] 2mg Take 1 [facility] [place] 2 mg 24 2-09 capsule by [facility] hr capsule 00:00: mouth [place] 00 daily. [facility] carvediloL 2021-02 Yes [id number] 6.25mg Take 1 [facility] 6.25 mg 2-09 tablet by [facility] tablet 00:00: mouth 2 00 (two) [facility] times [facility] daily with meals. atorvastati 2021-02 Yes [id number] 20mg Take 1 [facility] n 20 mg 2-09 tablet by [facility] tablet 00:00: mouth at [place] 00 bedtime. [facility] tolterodine 2021-02 Yes [id number] 2mg Take 1 [facility] [place] 2 mg 24 2-09 capsule by [facility] capsule 00:00: mouth 00 daily. [facility] carvediloL 2021-02 Yes [id number] 6.25mg Take 1 [facility] 6.25 mg 2-09 tablet by [facility] tablet 00:00: mouth 2 00 (two) [facility] times [facility] daily with meals. atorvastati 2021-02 Yes [id number] 20mg Take 1 [facility] n 20 mg 2-09 tablet by [facility] tablet 00:00: mouth at [place] 00 bedtime. [facility] tolterodine 2021-02 Yes [id number] 2mg Take 1 [facility] [place] 2 mg 24 2-09 capsule by [facility] capsule 00:00: mouth 00 daily. [facility] carvediloL 2021-02 Yes [id number] 6.25mg Take 1 [facility] 6.25 mg 2-09 tablet by [facility] tablet 00:00: mouth 2 00 (two) [facility] times [facility] daily with meals. atorvastati 2021-02 Yes [id number] 20mg Take 1 [facility] n 20 mg 2-09 tablet by [facility] tablet 00:00: mouth at [place] 00 bedtime. [facility] tolterodine 2021-02 Yes [id number] 2mg Take 1 [facility] [place] 2 mg 24 2-09 capsule by [facility] hr capsule 00:00: mouth 00 daily. [facility] carvediloL 2021-02 Yes [id number] 6.25mg Take 1 [facility] 6.25 mg 2-09 tablet by [facility] tablet 00:00: mouth 2 (two) [facility] times [facility] daily with meals. tolterodine 2021-02 Yes [id number] 2mg Take 1 [facility] [place] 2 mg 24 2-09 capsule by [facility] hr capsule 00:00: mouth [place] 00 daily. [facility] carvediloL 2021-02 Yes [id number] 6.25mg Take 1 [facility] 6.25 mg 2-09 tablet by [facility] tablet 00:00: mouth (two) [facility] times [facility] daily with meals. tolterodine 2021-02 Yes [id number] 2mg Take 1 [facility] [place] 2 mg 24 2-09 capsule by [facility] hr capsule 00:00: mouth 00 daily. [facility] carvediloL 2021-02 Yes [id number] 6.25mg Take 1 [facility] 6.25 mg 2-09 tablet by [facility] tablet 00:00: mouth (two) [facility] times [facility] daily with meals. tolterodine 2021-02 Yes [id number] 2mg Take 1 [facility] [place] 2 mg 24 2-09 capsule by [facility] hr capsule 00:00: mouth 00 daily. [facility] carvediloL 2021-02 Yes [id number] 6.25mg Take 1 [facility] 6.25 mg 2-09 tablet by [facility] tablet 00:00: mouth (two) [facility] times [facility] daily with meals. tolterodine 2021-02 Yes [id number] 2mg Take 1 [facility] [place] 2 mg 24 2-09 capsule by [facility] hr capsule 00:00: mouth 00 daily. [facility] carvediloL 2021-02 Yes [id number] 6.25mg Take 1 [facility] 6.25 mg 2-09 tablet by [facility] tablet 00:00: mouth (two) [facility] times [facility] daily with meals. tolterodine 2021-02 Yes [id number] 2mg Take 1 [facility] [place] 2 mg 24 2-09 capsule by [facility] hr capsule 00:00: mouth 00 daily. [facility] carvediloL 2021-02 Yes [id number] 6.25mg Take 1 [facility] 6.25 mg 2-09 tablet by [facility] tablet 00:00: mouth (two) [facility] times [facility] daily with meals. tolterodine 2021-02 Yes [id number] 2mg Take 1 [facility] [place] 2 mg 24 2-09 capsule by [facility] hr capsule 00:00: mouth [place] 00 daily. [facility] carvediloL 2021-02 Yes [id number] 6.25mg Take 1 [facility] 6.25 mg 2-09 tablet by [facility] tablet 00:00: mouth 2 (two) Medical times [facility] daily with meals. tolterodine 2021-02 Yes [id number] 2mg Take 1 [facility] [place] 2 mg 24 2-09 capsule by [facility] hr capsule 00:00: mouth [place] 00 daily. [facility] carvediloL 2021-02 Yes [id number] 6.25mg Take 1 [facility] 6.25 mg 2-09 tablet by [facility] tablet 00:00: mouth 2 (two) [facility] times [facility] daily with meals. tolterodine 2021-02 Yes [id number] 2mg Take 1 [facility] [place] 2 mg 24 2-09 capsule by [facility] hr capsule 00:00: mouth [place] 00 daily. [facility] carvediloL 2021-02 Yes [id number] 6.25mg Take 1 [facility] 6.25 mg 2-09 tablet by [facility] tablet 00:00: mouth (two) [facility] times [facility] daily with meals. tolterodine 2021-02 Yes [id number] 2mg Take 1 [facility] [place] 2 mg 24 2-09 capsule by [facility] hr capsule 00:00: mouth [place] 00 daily. [facility] carvediloL 2021-02 Yes [id number] 6.25mg Take 1 [facility] 6.25 mg 2-09 tablet by [facility] tablet 00:00: mouth (two) [facility] times [facility] daily with meals. tolterodine 2021-02 Yes [id number] 2mg Take 1 [facility] [place] 2 mg 24 2-09 capsule by [facility] hr capsule 00:00: mouth [place] 00 daily. [facility] carvediloL 2021-02 Yes [id number] 6.25mg Take 1 [facility] 6.25 mg 2-09 tablet by [facility] tablet 00:00: mouth 2 (two) [facility] times [facility] daily with meals. tolterodine 2021-02 Yes [id number] 2mg Take 1 [facility] [place] 2 mg 24 2-09 capsule by [facility] hr capsule 00:00: mouth [place] 00 daily. [facility] carvediloL 2021-02 Yes [id number] 6.25mg Take 1 [facility] 6.25 mg 2-09 tablet by [facility] tablet 00:00: mouth 2 (two) [facility] times [facility] daily with meals. tolterodine 2021-02 Yes [id number] 2mg Take 1 [facility] [place] 2 mg 24 2-09 capsule by [facility] hr capsule 00:00: mouth [place] 00 daily. [facility] carvediloL 2021-02 Yes [id number] 6.25mg Take 1 [facility] 6.25 mg 2-09 tablet by [facility] tablet 00:00: mouth (two) [facility] times [facility] daily with meals. tolterodine 2021-02 Yes [id number] 2mg Take 1 [facility] [place] 2 mg 24 2-09 capsule by [facility] hr capsule 00:00: mouth 00 daily. [facility] carvediloL 2021-02 Yes [id number] 6.25mg Take 1 [facility] 6.25 mg 2-09 tablet by [facility] tablet 00:00: mouth (two) [facility] times [facility] daily with meals. tolterodine 2021-02 Yes [id number] 2mg Take 1 [facility] 2 mg 24 2-09 capsule by [facility] hr capsule 00:00: mouth 00 daily. [facility] carvediloL 2021-02 Yes [id number] 6.25mg Take 1 [facility] 6.25 mg 2-09 tablet by [facility] tablet 00:00: mouth (two) [facility] times [facility] daily with meals. tolterodine 2021-02 Yes [id number] 2mg Take 1 [facility] [place] 2 mg 24 2-09 capsule by [facility] hr capsule 00:00: mouth 00 daily. [facility] carvediloL 2021-02 Yes [id number] 6.25mg Take 1 [facility] 6.25 mg 2-09 tablet by [facility] tablet 00:00: mouth (two) [facility] times [facility] daily with meals. tolterodine 2021-02 Yes [id number] 2mg Take 1 [facility] 2 mg 24 2-09 capsule by [facility] hr capsule 00:00: mouth 00 daily. [facility] carvediloL 2021-02 Yes [id number] 6.25mg Take 1 [facility] 6.25 mg 2-09 tablet by [facility] tablet 00:00: mouth 2 (two) [facility] times [facility] daily with meals. tolterodine 2021-02 Yes [id number] 2mg Take 1 [facility] [place] 2 mg 24 2-09 capsule by [facility] hr capsule 00:00: mouth [place] 00 daily. [facility] carvediloL 2021-02 Yes [id number] 6.25mg Take 1 [facility] 6.25 mg 2-09 tablet by [facility] tablet 00:00: mouth 2 (two) [facility] times [facility] daily with meals. tolterodine 2021-02 Yes [id number] 2mg Take 1 [facility] 2 mg 24 2-09 capsule by [facility] hr capsule 00:00: mouth [place] 00 daily. [facility] carvediloL 2021-02 Yes [id number] 6.25mg Take 1 [facility] 6.25 mg 2-09 tablet by [facility] tablet 00:00: mouth 2 (two) [facility] times [facility] daily with meals. tolterodine 2021-02 Yes [id number] 2mg Take 1 [facility] [place] 2 mg 24 2-09 capsule by [facility] hr capsule 00:00: mouth [place] 00 daily. [facility] carvediloL 2021-02 Yes [id number] 6.25mg Take 1 [facility] 6.25 mg 2-09 tablet by [facility] tablet 00:00: mouth (two) [facility] times [facility] daily with meals. tolterodine 2021-02 Yes [id number] 2mg Take 1 [facility] 2 mg 24 2-09 capsule by [facility] hr capsule 00:00: mouth [place] 00 daily. [facility] carvediloL 2021-02 Yes [id number] 6.25mg Take 1 [facility] 6.25 mg 2-09 tablet by [facility] tablet 00:00: mouth 2 (two) [facility] times [facility] daily with meals. tolterodine 2021-02 Yes [id number] 2mg Take 1 [facility] [place] 2 mg 24 2-09 capsule by [facility] hr capsule 00:00: mouth [place] 00 daily. [facility] carvediloL 2021-02 Yes [id number] 6.25mg Take 1 [facility] 6.25 mg 2-09 tablet by [facility] tablet 00:00: mouth 2 (two) [facility] times [facility] daily with meals. tolterodine 2021-02 Yes [id number] 2mg Take 1 [facility] [place] 2 mg 24 2-09 capsule by [facility] hr capsule 00:00: mouth [place] 00 daily. [facility] carvediloL 2021-02 Yes [id number] 6.25mg Take 1 [facility] 6.25 mg 2-09 tablet by [facility] tablet 00:00: mouth (two) [facility] times [facility] daily with meals. tolterodine 2021-02 Yes [id number] 2mg Take 1 [facility] 2 mg 24 2-09 capsule by [facility] hr capsule 00:00: mouth 00 daily. [facility] carvediloL 2021-02 Yes [id number] 6.25mg Take 1 [facility] 6.25 mg 2-09 tablet by [facility] tablet 00:00: mouth (two) [facility] times [facility] daily with meals. tolterodine 2021-02 Yes [id number] 2mg Take 1 [facility] 2 mg 24 2-09 capsule by [facility] hr capsule 00:00: mouth 00 daily. [facility] carvediloL 2021-02 Yes [id number] 6.25mg Take 1 [facility] 6.25 mg 2-09 tablet by [facility] tablet 00:00: mouth (two) [facility] times [facility] daily with meals. tolterodine 2021-02 Yes [id number] 2mg Take 1 [facility] 2 mg 24 2-09 capsule by [facility] hr capsule 00:00: mouth 00 daily. [facility] carvediloL 2021-02 Yes [id number] 6.25mg Take 1 [facility] 6.25 mg 2-09 tablet by [facility] tablet 00:00: mouth (two) [facility] times [facility] daily with meals. tolterodine 2021-02 Yes [id number] 2mg Take 1 [facility] 2 mg 24 2-09 capsule by [facility] hr capsule 00:00: mouth 00 daily. [facility] carvediloL 2021-02 Yes [id number] 6.25mg Take 1 [facility] 6.25 mg 2-09 tablet by [facility] tablet 00:00: mouth (two) [facility] times [facility] daily with meals. tolterodine 2021-02 Yes [id number] 2mg Take 1 [facility] 2 mg 24 2-09 capsule by [facility] hr capsule 00:00: mouth 00 daily. [facility] carvediloL 2021-02 Yes [id number] 6.25mg Take 1 [facility] 6.25 mg 2-09 tablet by [facility] tablet 00:00: mouth 2 (two) [facility] times [facility] daily with meals. tolterodine 2021-02 Yes [id number] 2mg Take 1 [facility] 2 mg 24 2-09 capsule by [facility] hr capsule 00:00: mouth [place] 00 daily. [facility] carvediloL 2021-02 Yes [id number] 6.25mg Take 1 [facility] 6.25 mg 2-09 tablet by [facility] tablet 00:00: mouth 2 (two) [facility] times [facility] daily with meals. tolterodine 2021-02 Yes [id number] 2mg Take 1 [facility] 2 mg 24 2-09 capsule by [facility] hr capsule 00:00: mouth [place] 00 daily. [facility] carvediloL 2021-02 Yes [id number] 6.25mg Take 1 [facility] 6.25 mg 2-09 tablet by [facility] tablet 00:00: mouth 2 (two) [facility] times [facility] daily with meals. tolterodine 2021-02 Yes [id number] 2mg Take 1 [facility] 2 mg 24 2-09 capsule by [facility] hr capsule 00:00: mouth [place] 00 daily. [facility] carvediloL 2021-02 Yes [id number] 6.25mg Take 1 [facility] 6.25 mg 2-09 tablet by [facility] tablet 00:00: mouth (two) [facility] times [facility] daily with meals. tolterodine 2021-02 Yes [id number] 2mg Take 1 [facility] 2 mg 24 2-09 capsule by [facility] hr capsule 00:00: mouth [place] 00 daily. [facility] carvediloL 2021-02 Yes [id number] 6.25mg Take 1 [facility] 6.25 mg 2-09 tablet by [facility] tablet 00:00: mouth (two) [facility] times [facility] daily with meals. tolterodine 2021-02 Yes [id number] 2mg Take 1 [facility] 2 mg 24 2-09 capsule by [facility] hr capsule 00:00: mouth [place] 00 daily. [facility] carvediloL 2021-02 Yes [id number] 6.25mg Take 1 [facility] 6.25 mg 2-09 tablet by [facility] tablet 00:00: mouth 2 (two) [facility] times [facility] daily with meals. tolterodine 2021-02 Yes [id number] 2mg Take 1 [facility] 2 mg 24 2-09 capsule by [facility] hr capsule 00:00: mouth [place] 00 daily. [facility] carvediloL 2021-02 Yes [id number] 6.25mg Take 1 [facility] 6.25 mg 2-09 tablet by [facility] tablet 00:00: mouth 2 00 (two) Medical times [facility] daily with meals. tolterodine 2021-02 Yes [id number] 2mg Take 1 [facility] 2 mg 24 2-09 capsule by [facility] hr capsule 00:00: mouth [place] 00 daily. [facility] carvediloL 2021-02 Yes [id number] 6.25mg Take 1 [facility] 6.25 mg 2-09 tablet by [facility] tablet 00:00: mouth 2 00 (two) [facility] times [facility] daily with meals. tolterodine 2021-02 Yes [id number] 2mg Take 1 [facility] 2 mg 24 2-09 capsule by [facility] hr capsule 00:00: mouth [place] 00 daily. [facility] carvediloL 2021-02 Yes [id number] 6.25mg Take 1 [facility] 6.25 mg 2-09 tablet by [facility] tablet 00:00: mouth (two) [facility] times [facility] daily with meals. tolterodine 2021-02 Yes [id number] 2mg Take 1 [facility] 2 mg 24 2-09 capsule by [facility] hr capsule 00:00: mouth [place] 00 daily. [facility] carvediloL 2021-02 Yes [id number] 6.25mg Take 1 [facility] 6.25 mg 2-09 tablet by [facility] tablet 00:00: mouth (two) [facility] times [facility] daily with meals. tolterodine 2021-02 Yes [id number] 2mg Take 1 [facility] 2 mg 24 2-09 capsule by [facility] hr capsule 00:00: mouth [place] 00 daily. [facility] tolterodine 2021-02 Yes [id number] 2mg Take 1 [facility] 2 mg 24 2-09 capsule by [facility] hr capsule 00:00: mouth [place] 00 daily. [facility] tolterodine 2021-02 Yes [id number] 2mg Take 1 [facility] 2 mg 24 2-09 capsule by [facility] hr capsule 00:00: mouth [place] 00 daily. [facility] tolterodine 2021-02 Yes [id number] 2mg Take 1 [facility] 2 mg 24 2-09 capsule by [facility] hr capsule 00:00: mouth [place] 00 daily. [facility] tolterodine 2021-02 Yes [id number] 2mg Take 1 [facility] 2 mg 24 2-09 capsule by [facility] hr capsule 00:00: mouth [place] 00 daily. [facility] tolterodine 2021-02 Yes [id number] 2mg Take 1 [facility] 2 mg 24 2-09 capsule by [facility] hr capsule 00:00: mouth [place] 00 daily. [facility] tolterodine 2021-02 Yes [id number] 2mg Take 1 [facility] 2 mg 24 2-09 capsule by [facility] hr capsule 00:00: mouth [place] 00 daily. [facility] tolterodine 2021-02 Yes [id number] 2mg Take 1 [facility] 2 mg 24 2-09 capsule by [facility] hr capsule 00:00: mouth [place] 00 daily. [facility] tolterodine 2021-02 Yes [id number] 2mg Take 1 [facility] 2 mg 24 2-09 capsule by [facility] hr capsule 00:00: mouth [place] 00 daily. [facility] tolterodine 2021-02 Yes [id number] 2mg Take 1 [facility] 2 mg 24 2-09 capsule by [facility] hr capsule 00:00: mouth [place] 00 daily. [facility] tolterodine 2021-02 Yes [id number] 2mg Take 1 [facility] 2 mg 24 2-09 capsule by [facility] hr capsule 00:00: mouth [place] 00 daily. [facility] tolterodine 2021-02 Yes [id number] 2mg Take 1 [facility] 2 mg 24 2-09 capsule by [facility] hr capsule 00:00: mouth [place] 00 daily. [facility] tolterodine 2021-02 Yes [id number] 2mg Take 1 [facility] 2 mg 24 2-09 capsule by [facility] hr capsule 00:00: mouth [place] 00 daily. [facility] tolterodine 2021-02 Yes [id number] 2mg Take 1 [facility] 2 mg 24 2-09 capsule by [facility] hr capsule 00:00: mouth [place] 00 daily. [facility] tolterodine 2021-02 Yes [id number] 2mg Take 1 [facility] 2 mg 24 2-09 capsule by [facility] hr capsule 00:00: mouth [place] 00 daily. [facility] tolterodine 2021-02 Yes [id number] 2mg Take 1 [facility] 2 mg 24 2-09 capsule by [facility] hr capsule 00:00: mouth [place] 00 daily. [facility] tolterodine 2021-02 Yes [id number] 2mg Take 1 [facility] 2 mg 24 2-09 capsule by [facility] hr capsule 00:00: mouth [place] 00 daily. [facility] tolterodine 2021-02 Yes [id number] 2mg Take 1 [facility] 2 mg 24 2-09 capsule by [facility] hr capsule 00:00: mouth [place] 00 daily. [facility] tolterodine 2021-02 Yes [id number] 2mg Take 1 [facility] 2 mg 24 2-09 capsule by [facility] hr capsule 00:00: mouth [place] 00 daily. [facility] tolterodine 2021-02 Yes [id number] 2mg Take 1 [facility] 2 mg 24 2-09 capsule by [facility] hr capsule 00:00: mouth [place] 00 daily. [facility] tolterodine 2021-02 Yes [id number] 2mg Take 1 [facility] 2 mg 24 2-09 capsule by [facility] hr capsule 00:00: mouth [place] 00 daily. [facility] tolterodine 2021-02 Yes [id number] 2mg Take 1 [facility] 2 mg 24 2-09 capsule by [facility] hr capsule 00:00: mouth [place] 00 daily. [facility] tolterodine 2021-02 Yes [id number] 2mg Take 1 [facility] 2 mg 24 2-09 capsule by [facility] hr capsule 00:00: mouth [place] 00 daily. [facility] tolterodine 2021-02 Yes [id number] 2mg Take 1 [facility] 2 mg 24 2-09 capsule by [facility] hr capsule 00:00: mouth [place] 00 daily. [facility] tolterodine 2021-02 Yes [id number] 2mg Take 1 [facility] 2 mg 24 2-09 capsule by [facility] hr capsule 00:00: mouth [place] 00 daily. [facility] tolterodine 2021-02 Yes [id number] 2mg Take 1 [facility] 2 mg 24 2-09 capsule by [facility] hr capsule 00:00: mouth [place] 00 daily. [facility] tolterodine 2021-02 Yes [id number] 2mg Take 1 [facility] 2 mg 24 2-09 capsule by [facility] hr capsule 00:00: mouth [place] 00 daily. [facility] tolterodine 2021-02 Yes [id number] 2mg Take 1 [facility] 2 mg 24 2-09 capsule by [facility] hr capsule 00:00: mouth [place] 00 daily. [facility] tolterodine 2021-02 Yes [id number] 2mg Take 1 [facility] 2 mg 24 2-09 capsule by [facility] hr capsule 00:00: mouth [place] 00 daily. [facility] tolterodine 2021-02 Yes [id number] 2mg Take 1 [facility] 2 mg 24 2-09 capsule by [facility] hr capsule 00:00: mouth [place] 00 daily. [facility] tolterodine 2021-02 Yes [id number] 2mg Take 1 [facility] 2 mg 24 2-09 capsule by [facility] hr capsule 00:00: mouth [place] 00 daily. [facility] tolterodine 2021-02 Yes [id number] 2mg Take 1 [facility] 2 mg 24 2-09 capsule by [facility] hr capsule 00:00: mouth [place] 00 daily. [facility] tolterodine 2021-02 Yes [id number] 2mg Take 1 [facility] 2 mg 24 2-09 capsule by [facility] hr capsule 00:00: mouth [place] 00 daily. [facility] tolterodine 2021-02 Yes [id number] 2mg Take 1 [facility] 2 mg 24 2-09 capsule by [facility] hr capsule 00:00: mouth [place] 00 daily. [facility] carvediloL 2021-02- No [id number] 6.25mg Take 1 [facility] 6.25 mg 03-24 tablet by [facility] tablet 00:00: 00:00 mouth 2 [place] 00 :00 (two) Medical times [facility] daily with meals. carvediloL 2021-02- No [id number] 6.25mg Take 1 [facility] 6.25 mg 03-24 tablet by [facility] of tablet 00:00: 00:00 mouth 2 [place] 00 :00 (two) Medical times [facility] daily with meals. carvediloL 2021-02- No [id number] 6.25mg Take 1 [facility] 6.25 mg 03-24 tablet by [facility] of tablet 00:00: 00:00 mouth 2 [place] 00 :00 (two) Medical times [facility] daily with meals. atorvastati 2021-02- No [id number] 20mg Take 1 [facility] n 20 mg 03-24 tablet by [facility] of tablet 00:00: 00:00 mouth at [place] 00 :00 bedtime. [facility] atorvastati 2021-02- No [id number] 20mg Take 1 [facility] n 20 mg 03-24 tablet by [facility] of tablet 00:00: 00:00 mouth at [place] 00 :00 bedtime. [facility] atorvastati 2021-02- No [id number] 20mg Take 1 [facility] n 20 mg 03-24 tablet by [facility] of tablet 00:00: 00:00 mouth at [place] 00 :00 bedtime. [facility] carvediloL 2021-02 Yes [id number] 12.5mg Take 1 [facility] 12.5 mg -11 tablet by [facility] of tablet 00:00: mouth 2 [place] 00 (two) Medical times Branch daily with meals. Additional refills per cardio carvediloL 2021-02 Yes [id number] 12.5mg Take 1 [facility] 12.5 mg -11 tablet by [facility] of tablet 00:00: mouth 2 [place] 00 (two) Medical times Branch daily with meals. Additional refills per cardio carvediloL 2021-02- No [id number] 12.5mg Take 1 [facility] 12.5 mg -11 01-21 tablet by [facility] of tablet 00:00: 00:00 mouth 2 [place] 00 :00 (two) Medical times Branch daily with meals. Additional refills per cardio carvediloL 2021-02- No [id number] 12.5mg Take 1 [facility] 12.5 mg -11 01-21 tablet by [facility] of tablet 00:00: 00:00 mouth 2 [place] 00 :00 (two) Medical times Branch daily [...] mouth once [place] 00 daily with [facility] Branch METFORMIN 2021-02 Yes Take 1 [facility] 500 mg 24 -09 tablet by ity o f hr tablet 00:00: mouth once [place] 00 daily with Medical breakfast Branch METFORMIN 2021-02 Yes Take 1 [facility] 500 mg 24 -09 tablet by ity o f hr tablet 00:00: mouth once [place] 00 daily with [facility] breakfast Branch METFORMIN 2021-02 Yes Take 1 [facility] 500 mg 24 - tablet by ity o f hr tablet 00:00: mouth once [place] 00 daily with [facility] breakfast Branch METFORMIN 2021-02 Yes Take 1 [facility] 500 mg 24 - tablet by ity o f hr tablet 00:00: mouth once [place] 00 daily with [facility] Branch METFORMIN 2021-02 Yes Take 1 [facility] 500 mg 24 - tablet by ity o f hr tablet 00:00: mouth once [place] 00 daily with [facility] Branch METFORMIN 2021-02 Yes Take 1 [facility] 500 mg 24 - tablet by ity o f hr tablet 00:00: mouth once [place] 00 daily with [facility] breakfast Branch METFORMIN 2021-02 Yes Take 1 [facility] 500 mg 24 - tablet by ity o f hr tablet 00:00: mouth once [place] 00 daily with [facility] Branch METFORMIN 2021-02- No Take 1 [facility] 500 mg 24 02-21 tablet by ity of hr tablet 00:00: 00:00 mouth once [place] 00 :00 daily with [facility] breakfast Branch METFORMIN 2021-02- No Take 1 [facility] 500 mg 24 02-21 tablet by ity of hr tablet 00:00: 00:00 mouth once [place] 00 :00 daily with [facility] Branch spironolact 2021-02- No 25mg Take 25 mg [facility] one 25 mg 0-21 10-21 by mouth ity o f tablet 14:33: 00:00 daily. [place] 53 :00 [facility] spironolact 2021-02- No 25mg Take 25 mg [facility] one 25 mg 0-21 10-21 by mouth ity o f tablet 14:33: 00:00 daily. [place] 53 :00 Medical Branch benzonatate 2021-02 Yes [id number] 200mg Take 1 [facility] 200 mg 0-21 capsule by ity of capsule 00:00: mouth 3 [place] 00 (three) Medical times Branch daily as needed for Cough. atorvastati 2021-02 Yes [id number] 40mg Take 1 [facility] n 40 mg 0-21 tablet by ity of tablet 00:00: mouth at [place] 00 bedtime. Medical Branch losartan 25 2021-02 Yes [id number] 25mg Take 1 [facility] mg tablet 0-21 tablet by ity o f 00:00: mouth at [place] 00 bedtime. Medical Branch furosemide 2021-02 Yes [id number] 20mg Take 1 [facility] 20 mg 0-21 tablet by ity of tablet 00:00: mouth [place] 00 daily. [facility] Branch spironolact 2021-02 Yes [id number] 25mg Take 1 [facility] one 25 mg 0-21 tablet by ity o f tablet 00:00: mouth [place] 00 daily. [facility] benzonatate 2021-02 Yes [id number] 200mg Take 1 [facility] 200 mg 0-21 capsule by ity of capsule 00:00: mouth 3 [place] 00 (three) Medical times Branch daily as needed for Cough. atorvastati 2021-02 Yes [id number] 40mg Take 1 [facility] n 40 mg 0-21 tablet by ity of tablet 00:00: mouth at [place] 00 bedtime. Medical Branch losartan 25 2021-02 Yes [id number] 25mg Take 1 [facility] mg tablet 0-21 tablet by ity o f 00:00: mouth at [place] 00 bedtime. Medical Branch furosemide 2021-02 Yes [id number] 20mg Take 1 [facility]ivers 20 mg 0-21 tablet by ity of tablet 00:00: mouth [place] 00 daily. [facility] spironolact 2021-02 Yes [id number] 25mg Take 1 [facility] one 25 mg 0-21 tablet by ity o f tablet 00:00: mouth [place] 00 daily. [facility] benzonatate 2021-02 Yes [id number] 200mg Take 1 [facility] 200 mg 0-21 capsule by ity of capsule 00:00: mouth 3 [place] 00 (three) Medical times Branch daily as needed for Cough. atorvastati 2021-02 Yes [id number] 40mg Take 1 [facility] n 40 mg 0-21 tablet by ity of tablet 00:00: mouth at [place] 00 bedtime. [facility] losartan 25 2021-02 Yes [id number] 25mg Take 1 [facility] mg tablet 0-21 tablet by [facility] f 00:00: mouth at [place] 00 bedtime. [facility] furosemide 2021-02 Yes [id number] 20mg Take 1 [facility] 20 mg 0-21 tablet by [facility] tablet 00:00: mouth [place] 00 daily. [facility] spironolact 2021-02 Yes [id number] 25mg Take 1 [facility] one 25 mg 0-21 tablet by [facility] o f tablet 00:00: mouth [place] 00 daily. [facility] benzonatate 2021-02 Yes [id number] 200mg Take 1 [facility] 200 mg 0-21 capsule by [facility] capsule 00:00: mouth 3 [place] 00 (three) Medical times Branch daily as needed for Cough. atorvastati 2021-02 Yes [id number] 40mg Take 1 [facility] n 40 mg 0-21 tablet by [facility] tablet 00:00: mouth at [place] 00 bedtime. [facility] losartan 2021-02 Yes [id number] 25mg Take 1 [facility] mg tablet 0-21 tablet by [facility] o f 00:00: mouth at [place] 00 bedtime. [facility] furosemide 2021-02 Yes [id number] 20mg Take 1 [facility] 20 mg 0-21 tablet by [facility] tablet 00:00: mouth [place] 00 daily. [facility] spironolact 2021-02 Yes [id number] 25mg Take 1 [facility] one 25 mg 0-21 tablet by [facility] o f tablet 00:00: mouth [place] 00 daily. [facility] benzonatate 2021-02 Yes [id number] 200mg Take 1 [facility] 200 mg 0-21 capsule by [facility] of capsule 00:00: mouth 3 [place] 00 (three) Medical times Branch daily as needed for Cough. atorvastati 2021-02 Yes [id number] 40mg Take 1 [facility] n 40 mg 0-21 tablet by [facility] tablet 00:00: mouth at [place] 00 bedtime. [facility] losartan 25 2021-02 Yes [id number] 25mg Take 1 [facility] mg tablet 0-21 tablet by [facility] o f 00:00: mouth at [place] 00 bedtime. [facility] furosemide 2021-02 Yes [id number] 20mg Take 1 [facility] 20 mg 0-21 tablet by [facility] of tablet 00:00: mouth [place] 00 daily. [facility] spironolact 2021-02 Yes [id number] 25mg Take 1 [facility] one 25 mg 0-21 tablet by [facility] o f tablet 00:00: mouth [place] 00 daily. [facility] benzonatate 2021-02 Yes [id number] 200mg Take 1 [facility] 200 mg 0-21 capsule by [facility] of capsule 00:00: mouth 3 [place] 00 (three) Medical times Branch daily as needed for Cough. atorvastati 2021-02 Yes [id number] 40mg Take 1 [facility] n 40 mg 0-21 tablet by [facility] of tablet 00:00: mouth at [place] 00 bedtime. [facility] losartan 25 2021-02 Yes [id number] 25mg Take 1 [facility] mg tablet 0-21 tablet by [facility] o f 00:00: mouth at [place] 00 bedtime. [facility] furosemide 2021-02 Yes [id number] 20mg Take 1 [facility] 20 mg 0-21 tablet by [facility] tablet 00:00: mouth [place] 00 daily. [facility] spironolact 2021-02 Yes [id number] 25mg Take 1 [facility] one 25 mg 0-21 tablet by [facility] o f tablet 00:00: mouth [place] 00 daily. [facility] losartan 25 2021-02 Yes [id number] 25mg Take 1 [facility] mg tablet 0-21 tablet by [facility] o f 00:00: mouth at [place] 00 bedtime. [facility] furosemide 2021-02 Yes [id number] 20mg Take 1 [facility] 20 mg 0-21 tablet by [facility] tablet 00:00: mouth [place] 00 daily. [facility] spironolact 2021-02 Yes [id number] 25mg Take 1 [facility] one 25 mg 0-21 tablet by [facility] o f tablet 00:00: mouth [place] 00 daily. [facility] losartan 25 2021-02 Yes [id number] 25mg Take 1 [facility] mg tablet 0-21 tablet by [facility] o f 00:00: mouth at [place] 00 bedtime. [facility] furosemide 2021-02 Yes [id number] 20mg Take 1 [facility] 20 mg 0-21 tablet by [facility] tablet 00:00: mouth [place] 00 daily. [facility] spironolact 2021-02 Yes [id number] 25mg Take 1 [facility] one 25 mg 0-21 tablet by [facility] o f tablet 00:00: mouth [place] 00 daily. [facility] losartan 25 2021-02 Yes [id number] 25mg Take 1 [facility] mg tablet 0-21 tablet by [facility] o f 00:00: mouth at [place] 00 bedtime. [facility] furosemide 2021-02 Yes [id number] 20mg Take 1 [facility] 20 mg 0-21 tablet by [facility] of tablet 00:00: mouth [place] 00 daily. [facility] spironolact 2021-02 Yes [id number] 25mg Take 1 [facility] one 25 mg 0-21 tablet by [facility] o f tablet 00:00: mouth [place] 00 daily. [facility] losartan 25 2021-02 Yes [id number] 25mg Take 1 [facility] mg tablet 0-21 tablet by [facility] o f 00:00: mouth at [place] 00 bedtime. [facility] furosemide 2021-02 Yes [id number] 20mg Take 1 [facility] 20 mg 0-21 tablet by [facility] of tablet 00:00: mouth [place] 00 daily. [facility] spironolact 2021-02 Yes [id number] 25mg Take 1 [facility] one 25 mg 0-21 tablet by [facility] o f tablet 00:00: mouth [place] 00 daily. [facility] spironolact 2021-02 Yes [id number] 25mg Take 1 [facility] one 25 mg 0-21 tablet by [facility] o f tablet 00:00: mouth [place] 00 daily. [facility] spironolact 2021-02 Yes [id number] 25mg Take 1 [facility] one 25 mg 0-21 tablet by [facility] o f tablet 00:00: mouth [place] 00 daily. [facility] spironolact 2021-02 Yes [id number] 25mg Take 1 [facility] one 25 mg 0-21 tablet by [facility] o f tablet 00:00: mouth [place] 00 daily. [facility] spironolact 2021-02 Yes [id number] 25mg Take 1 [facility] one 25 mg 0-21 tablet by [facility] o f tablet 00:00: mouth [place] 00 daily. [facility] spironolact 2021-02 Yes [id number] 25mg Take 1 [facility] one 25 mg 0-21 tablet by [facility] o f tablet 00:00: mouth [place] 00 daily. [facility] spironolact 2021-02 Yes [id number] 25mg Take 1 [facility] one 25 mg 0-21 tablet by [facility] o f tablet 00:00: mouth [place] 00 daily. [facility] spironolact 2021-02 Yes [id number] 25mg Take 1 [facility] one 25 mg 0-21 tablet by [facility] o f tablet 00:00: mouth [place] 00 daily. [facility] spironolact 2021-02 Yes [id number] 25mg Take 1 [facility] one 25 mg 0-21 tablet by [facility] o f tablet 00:00: mouth [place] 00 daily. [facility] spironolact 2021-02 Yes [id number] 25mg Take 1 [facility] one 25 mg 0-21 tablet by [facility] o f tablet 00:00: mouth [place] 00 daily. [facility] spironolact 2021-02 Yes [id number] 25mg Take 1 [facility] one 25 mg 0-21 tablet by [facility] o f tablet 00:00: mouth [place] 00 daily. [facility] spironolact 2021-02 Yes [id number] 25mg Take 1 [facility] one 25 mg 0-21 tablet by [facility] o f tablet 00:00: mouth [place] 00 daily. [facility] spironolact 2021-02 Yes [id number] 25mg Take 1 [facility] one 25 mg 0-21 tablet by [facility] o f tablet 00:00: mouth [place] 00 daily. [facility] spironolact 2021-02 Yes [id number] 25mg Take 1 [facility] one 25 mg 0-21 tablet by [facility] o f tablet 00:00: mouth [place] 00 daily. [facility] spironolact 2021-02 Yes [id number] 25mg Take 1 [facility] one 25 mg 0-21 tablet by [facility] o f tablet 00:00: mouth [place] 00 daily. [facility] spironolact 2021-02 Yes [id number] 25mg Take 1 [facility] one 25 mg 0-21 tablet by [facility] o f tablet 00:00: mouth [place] 00 daily. [facility] spironolact 2021-02 Yes [id number] 25mg Take 1 [facility] one 25 mg 0-21 tablet by [facility] o f tablet 00:00: mouth [place] 00 daily. [facility] spironolact 2021-02 Yes [id number] 25mg Take 1 [facility] one 25 mg 0-21 tablet by [facility] o f tablet 00:00: mouth [place] 00 daily. [facility] spironolact 2021-02 Yes [id number] 25mg Take 1 [facility] one 25 mg 0-21 tablet by [facility] o f tablet 00:00: mouth [place] 00 daily. [facility] spironolact 2021-02 Yes [id number] 25mg Take 1 [facility] one 25 mg 0-21 tablet by [facility] o f tablet 00:00: mouth [place] 00 daily. [facility] spironolact 2021-02 Yes [id number] 25mg Take 1 [facility] one 25 mg 0-21 tablet by [facility] o f tablet 00:00: mouth [place] 00 daily. [facility] spironolact 2021-02 Yes [id number] 25mg Take 1 [facility] one 25 mg 0-21 tablet by [facility] o f tablet 00:00: mouth [place] 00 daily. [facility] spironolact 2021-02 Yes [id number] 25mg Take 1 [facility] one 25 mg 0-21 tablet by [facility] o f tablet 00:00: mouth [place] 00 daily. [facility] spironolact 2021-02 Yes [id number] 25mg Take 1 [facility] one 25 mg 0-21 tablet by [facility] o f tablet 00:00: mouth [place] 00 daily. [facility] spironolact 2021-02 Yes [id number] 25mg Take 1 [facility] one 25 mg 0-21 tablet by [facility] o f tablet 00:00: mouth [place] 00 daily. [facility] spironolact 2021-02- No [id number] 25mg Take 1 [facility] one 25 mg 0-21 04-12 tablet by [facility] tablet 00:00: 00:00 mouth [place] 00 :00 daily. [facility] spironolact 2021-02- No [id number] 25mg Take 1 [facility] one 25 mg 0-21 04-12 tablet by [facility] of tablet 00:00: 00:00 mouth [place] 00 :00 daily. [facility] losartan 25 2021-02- No [id number] 25mg Take 1 [facility] mg tablet 0-05 03-27 tablet by [facility] of 00:00: 00:00 mouth at [place] 00 :00 bedtime. [facility] furosemide 2021-02- No [id number] 20mg Take 1 [facility] 20 mg 0-21 -27 tablet by [facility] of tablet 00:00: 00:00 mouth [place] 00 :00 daily. [facility] losartan 25 2021-02- No [id number] 25mg Take 1 [facility] mg tablet 0-21 -27 tablet by [facility] of 00:00: 00:00 mouth at [place] 00 :00 bedtime. [facility] furosemide 2021-02- No [id number] 20mg Take 1 [facility] 20 mg 0-21 -27 tablet by [facility] of tablet 00:00: 00:00 mouth [place] 00 :00 daily. [facility] losartan 25 2021-02- No [id number] 25mg Take 1 [facility] mg tablet 0-05 03- tablet by [facility] of 00:00: 00:00 mouth at [place] 00 :00 bedtime. [facility] furosemide 2021-02- No [id number] 20mg Take 1 [facility] 20 mg 0-05 03-27 tablet by [facility] of tablet 00:00: 00:00 mouth [place] 00 :00 daily. [facility] losartan 25 2021-02- No [id number] 25mg Take 1 [facility] mg tablet 0-03-11 tablet by [facility] of 00:00: 00:00 mouth at [place] 00 :00 bedtime. [facility] furosemide 2021-02- No [id number] 20mg Take 1 [facility] 20 mg 0-03-11 tablet by [facility] of tablet 00:00: 00:00 mouth [place] 00 :00 daily. [facility] losartan 25 2021-02- No [id number] 25mg Take 1 [facility] mg tablet 003-11 tablet by [facility] of 00:00: 00:00 mouth at [place] 00 :00 bedtime. [facility] furosemide 2021-02- No [id number] 20mg Take 1 [facility] 20 mg 0-03-11 tablet by [facility] of tablet 00:00: 00:00 mouth [place] 00 :00 daily. [facility] losartan 25 2021-02- No [id number] 25mg Take 1 [facility] mg tablet 003-11 tablet by [facility] of 00:00: 00:00 mouth at [place] 00 :00 bedtime. [facility] furosemide 2021-02- No [id number] 20mg Take 1 [facility] 20 mg 0-03-11 tablet by [facility] of tablet 00:00: 00:00 mouth [place] 00 :00 daily. [facility] losartan 25 2021-02- No [id number] 25mg Take 1 [facility] mg tablet 0-03-11 tablet by [facility] of 00:00: 00:00 mouth at [place] 00 :00 bedtime. [facility] furosemide 2021-02- No [id number] 20mg Take 1 [facility] 20 mg 0-05 03-27 tablet by [facility] of tablet 00:00: 00:00 mouth [place] 00 :00 daily. [facility] benzonatate 2021-02- No [id number] 200mg Take 1 [facility] 200 mg 0-21 12-09 capsule by [facility] of capsule 00:00: 00:00 mouth 3 [place] 00 :00 (three) Medical times Branch daily as needed for Cough. atorvastati 2021-02- No [id number] 40mg Take 1 [facility] n 40 mg 0-21 12-09 tablet by [facility] of tablet 00:00: 00:00 mouth at [place] 00 :00 bedtime. [facility] benzonatate 2021-02- No [id number] 200mg Take 1 [facility] 200 mg 0-21 12-09 capsule by [facility] of capsule 00:00: 00:00 mouth 3 [place] 00 :00 (three) Medical times Branch daily as needed for Cough. atorvastati 2021-02- No [id number] 40mg Take 1 [facility] n 40 mg 0-21 12-09 tablet by [facility] of tablet 00:00: 00:00 mouth at [place] 00 :00 bedtime. [facility] losartan 50 2021-0 Yes [id number] 25mg Take 0.5 [facility] mg tablet 9-12 tablets by [facility] of 00:00: mouth [place] 00 every Medical evening. Branch losartan 50 2021-0 Yes [id number] 25mg Take 0.5 [facility] mg tablet 9-12 tablets by [facility] of 00:00: mouth [place] 00 every Medical evening. Branch losartan 50 2021-0 Yes [id number] 25mg Take 0.5 [facility] mg tablet 9-12 tablets by [facility] of 00:00: mouth [place] 00 every Medical evening. Branch losartan 50 2021-0 Yes [id number] 25mg Take 0.5 [facility] mg tablet 9-12 tablets by [facility] of 00:00: mouth [place] 00 every Medical evening. Branch losartan 50 2021-0 Yes [id number] 25mg Take 0.5 [facility] mg tablet 9-12 tablets by [facility] of 00:00: mouth [place] 00 every Medical evening. Branch losartan 50 2021-0 Yes [id number] 25mg Take 0.5 [facility] mg tablet 9-12 tablets by [facility] of 00:00: mouth [place] 00 every Medical evening. Branch losartan 50 2021-0 Yes [id number] 25mg Take 0.5 [facility] mg tablet 9-12 tablets by [facility] of 00:00: mouth [place] 00 every Medical evening. Branch losartan 50 2021-0 Yes [id number] 25mg Take 0.5 [facility] mg tablet 9-12 tablets by [facility] of 00:00: mouth [place] 00 every Medical evening. Branch losartan 50 2021-0 Yes [id number] 25mg Take 0.5 [facility] mg tablet 9-12 tablets by [facility] of 00:00: mouth [place] 00 every Medical evening. Branch losartan 50 2021-0 Yes [id number] 25mg Take 0.5 [facility] mg tablet 9-12 tablets by [facility] of 00:00: mouth [place] 00 every Medical evening. Branch losartan 50 2021-0 Yes [id number] 25mg Take 0.5 [facility] mg tablet 9-12 tablets by [facility] of 00:00: mouth [place] 00 every Medical evening. Branch losartan 50 2021-0 Yes [id number] 25mg Take 0.5 [facility] mg tablet 9-12 tablets by [facility] of 00:00: mouth [place] 00 every Medical evening. Branch losartan 50 2021-0 Yes [id number] 25mg Take 0.5 [facility] mg tablet 9-12 tablets by [facility] of 00:00: mouth [place] 00 every Medical evening. Branch losartan 50 2021-0 2021- No [id number] 25mg Take 0.5 [facility] mg tablet 9-12 10-21 tablets by [facility] of 00:00: 00:00 mouth [place] 00 :00 every Medical evening. Branch losartan 50 2021-0 2021- No [id number] 25mg Take 0.5 [facility] mg tablet 9-12 [...] daily with Medical breakfast. Branch metFORMIN 2-0 2021- No 500mg Take 1 [facility] ers 500 mg 24 7-29 11-09 tablet by ity of hr tablet 00:00: 00:00 mouth [place] 00 :00 daily with Medical breakfast. Branch OXYBUTYNIN 2021-0 2022- No 10mg Take 10 mg [facility] CHLORIDE -15 by mouth. ity o f ORAL 14:50: 00:00 Managed by [place] 14 :00 Dr. Cuenca [facility] OXYBUTYNIN 2021- No 10mg Take 10 mg [facility] CHLORIDE 08-27-15 by mouth. ity o f ORAL 14:50: 00:00 Managed by [place] 14 :00 Dr. Cuenca [facility] losartan 50 2021-0 2021- No [id number] 50mg Take 1 [facility] mg tablet 08-27 tablet by it[facility] of 00:00: 00:00 mouth [place] 00 :00 daily. [facility] losartan 50 2021-0 2021- No [id number] 50mg Take 1 [facility] mg tablet 05-04- tablet by ity of 00:00: 00:00 mouth 2 [place] 00 :00 (two) Medical times Branch daily. losartan 50 2021-0 2021- No [id number] 50mg Take 1 [facility] mg tablet 05-04- tablet by ity of 00:00: 00:00 mouth 2 [place] 00 :00 (two) Medical times Branch daily. furosemide 2021-0 Yes 40mg Take 1 [facility] rs 40 mg 3-17 tablet by [facility] of tablet 00:00: mouth [place] 00 daily. [facility] furosemide 2-0 Yes 40mg Take 1 [facility] rs 40 mg 3-17 tablet by [facility] of tablet 00:00: mouth [place] 00 daily. [facility] furosemide 202-0 Yes 40mg Take 1 [facility] rs 40 [...] [place] 00 :00 daily. [facility] ATORVASTATI 2020- Yes [id number] 40mg TAKE 1 [facility] N 40 mg 2-13 TABLET BY it[facility] of tablet 00:00: MOUTH AT [place] 00 BEDTIME Medical Branch ATORVASTATI 2020- Yes [id number] 40mg TAKE 1 [facility] N 40 mg 2-13 TABLET BY ity of tablet 00:00: MOUTH AT [place] 00 BEDTIME Medical Branch ATORVASTATI 2020-02 Yes [id number] 40mg TAKE 1 [facility] N 40 mg 2-13 TABLET BY ity of tablet 00:00: MOUTH AT [address] 2020-02 Yes [id number] 40mg TAKE 1 [facility] N 40 mg 2-13 TABLET BY ity of tablet 00:00: MOUTH AT [place] [facility] 2020-02 Yes [id number] 40mg TAKE 1 [facility] N 40 mg 2-13 TABLET BY ity of tablet 00:00: MOUTH AT [place] [facility] 2020-02 Yes [id number] 40mg TAKE 1 [facility] N 40 mg 2-13 TABLET BY ity of tablet 00:00: MOUTH AT [address] 2020-02 Yes [id number] 40mg TAKE 1 [facility] N 40 mg 2-13 TABLET BY ity of tablet 00:00: MOUTH AT [address] 2020-02 Yes [id number] 40mg TAKE 1 [facility] N 40 mg 2-13 TABLET BY ity of tablet 00:00: MOUTH AT [address] 2020-02 Yes [id number] 40mg TAKE 1 [facility] N 40 mg 2-13 TABLET BY ity of tablet 00:00: MOUTH AT [place] [facility] 2020-02 Yes [id number] 40mg TAKE 1 [facility] N 40 mg 2-13 TABLET BY ity of tablet 00:00: MOUTH AT [address] 2020-02 Yes [id number] 40mg TAKE 1 [facility] N 40 mg 2-13 TABLET BY ity of tablet 00:00: MOUTH AT [address] 2020-02 Yes [id number] 40mg TAKE 1 [facility] N 40 mg 2-13 TABLET BY ity of tablet 00:00: MOUTH AT [place] [facility] 2020-02 Yes [id number] 40mg TAKE 1 [facility] N 40 mg 2-13 TABLET BY ity of tablet 00:00: MOUTH AT [address] 2020-02 Yes [id number] 40mg TAKE 1 [facility] N 40 mg 2-13 TABLET BY ity of tablet 00:00: MOUTH AT [address] 2020-02- No [id number] 40mg TAKE 1 [facility] N 40 mg 2-13 10-21 TABLET BY ity of tablet 00:00: 00:00 MOUTH AT [place] 00 :00 BEDTIME [facility] No [id number] 40mg TAKE 1 [facility] N 40 mg 2-13 10-21 TABLET BY ity of tablet 00:00: 00:00 MOUTH AT [place] 00 :00 BEDTIME [facility]- No [id number] 40mg TAKE 1 [facility] N 40 mg 2-13 10-21 TABLET BY ity of tablet 00:00: 00:00 MOUTH AT [place] 00 :00 BEDTIME [facility]- No [id number] 40mg TAKE 1 [facility] N 40 mg 2-13 10-21 TABLET BY ity of tablet 00:00: 00:00 MOUTH AT [place] 00 :00 BEDTIME Medical Branch azelastine 2020-02 Yes [id number] 1{spray Use 1 [facility] 137 mcg 2-02 } [place] in ity of (0.1 %) 00:00: each [place] nasal spray 00 nostril 2 Med ical (two) Branch times daily. Use in each nostril as directed fluticasone 2020-02 Yes [id number] 2{puff} Inhale 2 [facility] propionate 2-02 Puffs 2 ity of (FLOVENT 00:00: (two) [place] HFA) 44 00 times Medical mcg/actuati daily. Branch on inhaler Rinse mouth after each use. azelastine 2020-02 Yes [id number] 1{spray Use 1 [facility] 137 mcg 2-02 } [place] ity of (0.1 %) 00:00: each [place] nasal spray 00 nostril 2 Med ical (two) Branch times daily. Use in each nostril as directed fluticasone 2020-02 Yes [id number] 2{puff} Inhale 2 [facility] propionate 2-02 Puffs 2 ity of (FLOVENT 00:00: (two) [place] HFA) 44 00 times Medical mcg/actuati daily. Branch on inhaler Rinse mouth after each use. azelastine 2020-02 Yes [id number] 1{spray Use 1 [facility] 137 mcg 2-02 } [place] ity of (0.1 %) 00:00: each [place] nasal spray 00 nostril 2 Med ical (two) Branch times daily. Use in each nostril as directed fluticasone 2020-02 Yes [id number] 2{puff} Inhale 2 [facility] propionate 2-02 Puffs 2 ity of (FLOVENT 00:00: (two) [place] HFA) 44 00 times Medical mcg/actuati daily. Branch on inhaler Rinse mouth after each use. azelastine 2020-02 Yes [id number] 1{spray Use 1 [facility] 137 mcg 2-02 } [place] ity of (0.1 %) 00:00: each [place] nasal spray 00 nostril 2 Med ical (two) Branch times daily. Use in each nostril as directed fluticasone 2020-02 Yes [id number] 2{puff} Inhale 2 [facility] propionate 2-02 Puffs 2 ity of (FLOVENT 00:00: (two) [place] HFA) 44 00 times Medical mcg/actuati daily. Branch on inhaler Rinse mouth after each use. azelastine 2020-02 Yes [id number] 1{spray Use 1 [facility] 137 mcg 2-02 } [place] ity of (0.1 %) 00:00: each [place] nasal spray 00 nostril 2 Med ical (two) Branch times daily. Use in each nostril as directed fluticasone 2020-02 Yes [id number] 2{puff} Inhale 2 [facility] propionate 2-02 Puffs 2 ity of (FLOVENT 00:00: (two) [place] HFA) 44 00 times Medical mcg/actuati daily. Branch on inhaler Rinse mouth after each use. azelastine 2020-02 Yes [id number] 1{spray Use 1 [facility] 137 mcg 2-02 } [place] ity of (0.1 %) 00:00: each [place] nasal spray 00 nostril 2 Med ical (two) Branch times daily. Use in each nostril as directed fluticasone 2020-02 Yes [id number] 2{puff} Inhale 2 [facility] propionate 2-02 Puffs 2 ity of (FLOVENT 00:00: (two) [place] HFA) 44 00 times Medical mcg/actuati daily. Branch on inhaler Rinse mouth after each use. azelastine 2020-02 Yes [id number] 1{spray Use 1 [facility] 137 mcg 2-02 } [place] ity of (0.1 %) 00:00: each [place] nasal spray 00 nostril 2 Med ical (two) Branch times daily. Use in each nostril as directed fluticasone 2020-02 Yes [id number] 2{puff} Inhale 2 [facility] propionate 2-02 Puffs 2 ity of (FLOVENT 00:00: (two) [place] HFA) 44 00 times Medical mcg/actuati daily. Branch on inhaler Rinse mouth after each use. azelastine 2020-02 Yes [id number] 1{spray Use 1 [facility] 137 mcg 2-02 } [place] ity of (0.1 %) 00:00: each [place] nasal spray 00 nostril 2 Med ical (two) Branch times daily. Use in each nostril as directed fluticasone 2020-02 Yes [id number] 2{puff} Inhale 2 [facility] propionate 2-02 Puffs 2 ity of (FLOVENT 00:00: (two) [place] HFA) 44 00 times Medical mcg/actuati daily. Branch on inhaler Rinse mouth after each use. azelastine 2020-02 Yes [id number] 1{spray Use 1 [facility] 137 mcg 2-02 } [place] ity of (0.1 %) 00:00: each [place] nasal spray 00 nostril 2 Med ical (two) Branch times daily. Use in each nostril as directed fluticasone 2020-02 Yes [id number] 2{puff} Inhale 2 [facility] propionate 2-02 Puffs 2 ity of (FLOVENT 00:00: (two) [place] HFA) 44 00 times Medical mcg/actuati daily. Branch on inhaler Rinse mouth after each use. azelastine 2020-02 Yes [id number] 1{spray Use 1 [facility] 137 mcg 2-02 } [place] ity of (0.1 %) 00:00: each [place] nasal spray 00 nostril 2 Med ical (two) Branch times daily. Use in each nostril as directed fluticasone 2020-02 Yes [id number] 2{puff} Inhale 2 [facility] propionate 2-02 Puffs 2 ity of (FLOVENT 00:00: (two) [place] HFA) 44 00 times Medical mcg/actuati daily. Branch on inhaler Rinse mouth after each use. azelastine 2020-02 Yes [id number] 1{spray Use 1 [facility] 137 mcg 2-02 } [place] ity of (0.1 %) 00:00: each [place] nasal spray 00 nostril 2 Med ical (two) Branch times daily. Use in each nostril as directed fluticasone 2020-02 Yes [id number] 2{puff} Inhale 2 [facility] propionate 2-02 Puffs 2 ity of (FLOVENT 00:00: (two) [place] HFA) 44 00 times Medical mcg/actuati daily. Branch on inhaler Rinse mouth after each use. azelastine 2020-02 Yes [id number] 1{spray Use 1 [facility] 137 mcg 2-02 } [place] ity of (0.1 %) 00:00: each [place] nasal spray 00 nostril 2 Med ical (two) Branch times daily. Use in each nostril as directed fluticasone 2020-02 Yes [id number] 2{puff} Inhale 2 [facility] propionate 2-02 Puffs 2 ity of (FLOVENT 00:00: (two) [place] HFA) 44 00 times Medical mcg/actuati daily. Branch on inhaler Rinse mouth after each use. azelastine 2020-02 Yes [id number] 1{spray Use 1 [facility] 137 mcg 2-02 } [place] in ity of (0.1 %) 00:00: each [place] nasal spray 00 nostril 2 Med ical (two) Branch times daily. Use in each nostril as directed fluticasone 2020-02 Yes [id number] 2{puff} Inhale 2 [facility] propionate 2-02 Puffs 2 ity of (FLOVENT 00:00: (two) [place] HFA) 44 00 times Medical mcg/actuati daily. Branch on inhaler Rinse mouth after each use. azelastine 2020-02 Yes [id number] 1{spray Use 1 [facility] 137 mcg 2-02 } [place] in ity of (0.1 %) 00:00: each [place] nasal spray 00 nostril 2 Med ical (two) Branch times daily. Use in each nostril as directed fluticasone 2020-02 Yes [id number] 2{puff} Inhale 2 [facility] propionate 2-02 Puffs 2 ity of (FLOVENT 00:00: (two) [place] HFA) 44 00 times Medical mcg/actuati daily. Branch on inhaler Rinse mouth after each use. azelastine 2020-02 Yes [id number] 1{spray Use 1 [facility] 137 mcg 2-02 } [place] in ity of (0.1 %) 00:00: each [place] nasal spray 00 nostril 2 Med ical (two) Branch times daily. Use in each nostril as directed fluticasone 2020-02 Yes [id number] 2{puff} Inhale 2 [facility] propionate 2-02 Puffs 2 ity of (FLOVENT 00:00: (two) [place] HFA) 44 00 times Medical mcg/actuati daily. Branch on inhaler Rinse mouth after each use. azelastine 2020-02 Yes [id number] 1{spray Use 1 [facility] 137 mcg 2-02 } [place] in ity of (0.1 %) 00:00: each [place] nasal spray 00 nostril 2 Med ical (two) Branch times daily. Use in each nostril as directed fluticasone 2020-02 Yes [id number] 2{puff} Inhale 2 [facility] propionate 2-02 Puffs 2 ity of (FLOVENT 00:00: (two) [place] HFA) 44 00 times Medical mcg/actuati daily. Branch on inhaler Rinse mouth after each use. azelastine 2020-02 Yes [id number] 1{spray Use 1 [facility] 137 mcg 2-02 } [place] in ity of (0.1 %) 00:00: each [place] nasal spray 00 nostril 2 Med ical (two) Branch times daily. Use in each nostril as directed fluticasone 2020-02 Yes [id number] 2{puff} Inhale 2 [facility] propionate 2-02 Puffs 2 ity of (FLOVENT 00:00: (two) [place] HFA) 44 00 times Medical mcg/actuati daily. Branch on inhaler Rinse mouth after each use. azelastine 2020-02 Yes [id number] 1{spray Use 1 [facility] 137 mcg 2-02 } [place] in ity of (0.1 %) 00:00: each [place] nasal spray 00 nostril 2 Med ical (two) Branch times daily. Use in each nostril as directed fluticasone 2020-02 Yes [id number] 2{puff} Inhale 2 [facility] propionate 2-02 Puffs 2 ity of (FLOVENT 00:00: (two) [place] HFA) 44 00 times Medical mcg/actuati daily. Branch on inhaler Rinse mouth after each use. azelastine 2020-02 Yes [id number] 1{spray Use 1 [facility] 137 mcg 2-02 } [place] in ity of (0.1 %) 00:00: each [place] nasal spray 00 nostril 2 Med ical (two) Branch times daily. Use in each nostril as directed fluticasone 2020-02 Yes [id number] 2{puff} Inhale 2 [facility] propionate 2-02 Puffs 2 ity of (FLOVENT 00:00: (two) [place] [facility]) 44 00 times Medical mcg/actuati daily. Branch on inhaler Rinse mouth after each use. azelastine 2020-02 Yes [id number] 1{spray Use 1 [facility] 137 mcg 2-02 } [place] [facility] (0.1 %) 00:00: each [place] nasal spray 00 nostril 2 Med ical (two) Branch times daily. Use in each nostril as directed fluticasone 2020-02 Yes [id number] 2{puff} Inhale 2 [facility] propionate 2-02 Puffs 2 [facility]y of (FLOVENT 00:00: (two) [place] [facility]FA) 44 00 times Medical mcg/actuati daily. Branch on inhaler Rinse mouth after each use. azelastine 2020-02 Yes [id number] 1{spray Use 1 [facility] 137 mcg 2-02 } [place] [facility] (0.1 %) 00:00: each [place] nasal spray 00 nostril 2 Med ical (two) Branch times daily. Use in each nostril as directed fluticasone 2020-02 Yes [id number] 2{puff} Inhale 2 [facility] propionate 2-02 Puffs 2 [facility]y of (FLOVENT 00:00: (two) [place] [facility]FA) 44 00 times Medical mcg/actuati daily. Branch on inhaler Rinse mouth after each use. azelastine 2020-02 Yes [id number] 1{spray Use 1 [facility] 137 mcg 2-02 } [place] [facility] (0.1 %) 00:00: each [place] nasal spray 00 nostril 2 Med ical (two) Branch times daily. Use in each nostril as directed fluticasone 2020-02 Yes [id number] 2{puff} Inhale 2 [facility] propionate 2-02 Puffs 2 [facility]y of (FLOVENT 00:00: (two) [place] [facility]FA) 44 00 times Medical mcg/actuati daily. Branch on inhaler Rinse mouth after each use. azelastine 2020-02 Yes [id number] 1{spray Use 1 [facility] 137 mcg 2-02 } [place] [facility] (0.1 %) 00:00: each [place] nasal spray 00 nostril 2 Med ical (two) Branch times daily. Use in each nostril as directed fluticasone 2020-02 Yes [id number] 2{puff} Inhale 2 [facility] propionate 2-02 Puffs 2 ity of (FLOVENT 00:00: (two) [place] [facility]FA) 44 00 times Medical mcg/actuati daily. Branch on inhaler Rinse mouth after each use. azelastine 2020-02 Yes [id number] 1{spray Use 1 [facility] 137 mcg 2-02 } [place] [facility] (0.1 %) 00:00: each [place] nasal spray 00 nostril 2 Med ical (two) Branch times daily. Use in each nostril as directed fluticasone 2020-02 Yes [id number] 2{puff} Inhale 2 [facility] propionate 2-02 Puffs 2 ity of (FLOVENT 00:00: (two) [place] [facility]FA) 44 00 times Medical mcg/actuati daily. Branch on inhaler Rinse mouth after each use. azelastine 2020-02 Yes [id number] 1{spray Use 1 [facility] 137 mcg 2-02 } [place] [facility] (0.1 %) 00:00: each [place] nasal spray 00 nostril 2 Med ical (two) Branch times daily. Use in each nostril as directed fluticasone 2020-02 Yes [id number] 2{puff} Inhale 2 [facility] propionate 2-02 Puffs 2 [facility]y of (FLOVENT 00:00: (two) [place] [facility]FA) 44 00 times Medical mcg/actuati daily. Branch on inhaler Rinse mouth after each use. azelastine 2020-02 Yes [id number] 1{spray Use 1 [facility] 137 mcg 2-02 } [place] [facility] (0.1 %) 00:00: each [place] nasal spray 00 nostril 2 Med ical (two) Branch times daily. Use in each nostril as directed fluticasone 2020-02 Yes [id number] 2{puff} Inhale 2 [facility] propionate 2-02 Puffs 2 [facility]y of (FLOVENT 00:00: (two) [place] [facility]FA) 44 00 times Medical mcg/actuati daily. Branch on inhaler Rinse mouth after each use. azelastine 2020-02 Yes [id number] 1{spray Use 1 [facility] 137 mcg 2-02 } [place] [facility] (0.1 %) 00:00: each [place] nasal spray 00 nostril 2 Med ical (two) Branch times daily. Use in each nostril as directed fluticasone 2020-02 Yes [id number] 2{puff} Inhale 2 [facility] propionate 2-02 Puffs 2 ity of (FLOVENT 00:00: (two) [place] [facility]) 44 00 times Medical mcg/actuati daily. Branch on inhaler Rinse mouth after each use. azelastine 2020-02 Yes [id number] 1{spray Use 1 [facility] 137 mcg 2-02 } [place] [facility] (0.1 %) 00:00: each [place] nasal spray 00 nostril 2 Med ical (two) Branch times daily. Use in each nostril as directed fluticasone 2020-02 Yes [id number] 2{puff} Inhale 2 [facility] propionate 2-02 Puffs 2 [facility]y of (FLOVENT 00:00: (two) [place] [facility]) 44 00 times Medical mcg/actuati daily. Branch on inhaler Rinse mouth after each use. azelastine 2020-02 Yes [id number] 1{spray Use 1 [facility] 137 mcg 2-02 } [place] [facility] (0.1 %) 00:00: each [place] nasal spray 00 nostril 2 Med ical (two) Branch times daily. Use in each nostril as directed fluticasone 2020-02 Yes [id number] 2{puff} Inhale 2 [facility] propionate 2-02 Puffs 2 ity of (FLOVENT 00:00: (two) [place] [facility]FA) 44 00 times Medical mcg/actuati daily. Branch on inhaler Rinse mouth after each use. azelastine 2020-02 Yes [id number] 1{spray Use 1 [facility] 137 mcg 2-02 } [place] [facility] (0.1 %) 00:00: each [place] nasal spray 00 nostril 2 Med ical (two) Branch times daily. Use in each nostril as directed fluticasone 2020-02 Yes [id number] 2{puff} Inhale 2 [facility] propionate 2-02 Puffs 2 [facility]y of (FLOVENT 00:00: (two) [place] [facility]) 44 00 times Medical mcg/actuati daily. Branch on inhaler Rinse mouth after each use. azelastine 2020-02 Yes [id number] 1{spray Use 1 [facility] 137 mcg 2-02 } [place] [facility] (0.1 %) 00:00: each [place] nasal spray 00 nostril 2 Med ical (two) Branch times daily. Use in each nostril as directed fluticasone 2020-02 Yes [id number] 2{puff} Inhale 2 [facility] propionate 2-02 Puffs 2 [facility]y of (FLOVENT 00:00: (two) [place] [facility]) 44 00 times Medical mcg/actuati daily. Branch on inhaler Rinse mouth after each use. azelastine 2020-02 Yes [id number] 1{spray Use 1 [facility] 137 mcg 2-02 } [place] [facility] (0.1 %) 00:00: each [place] nasal spray 00 nostril 2 Med ical (two) Branch times daily. Use in each nostril as directed fluticasone 2020-02 Yes [id number] 2{puff} Inhale 2 [facility] propionate 2-02 Puffs 2 [facility]y of (FLOVENT 00:00: (two) [place] [facility]) 44 00 times Medical mcg/actuati daily. Branch on inhaler Rinse mouth after each use. azelastine 2020-02 Yes [id number] 1{spray Use 1 [facility] 137 mcg 2-02 } [place] [facility] (0.1 %) 00:00: each [place] nasal spray 00 nostril 2 Med ical (two) Branch times daily. Use in each nostril as directed fluticasone 2020-02 Yes [id number] 2{puff} Inhale 2 [facility] propionate 2-02 Puffs 2 ity of (FLOVENT 00:00: (two) [place] [facility]FA) 44 00 times Medical mcg/actuati daily. Branch on inhaler Rinse mouth after each use. azelastine 2020-02 Yes [id number] 1{spray Use 1 [facility] 137 mcg 2-02 } [place] [facility] (0.1 %) 00:00: each [place] nasal spray 00 nostril 2 Med ical (two) Branch times daily. Use in each nostril as directed fluticasone 2020-02 Yes [id number] 2{puff} Inhale 2 [facility] propionate 2-02 Puffs 2 ity of (FLOVENT 00:00: (two) [place] [facility]) 44 00 times Medical mcg/actuati daily. Branch on inhaler Rinse mouth after each use. azelastine 2020-02 Yes [id number] 1{spray Use 1 [facility] 137 mcg 2-02 } [place] [facility] (0.1 %) 00:00: each [place] nasal spray 00 nostril 2 Med ical (two) Branch times daily. Use in each nostril as directed fluticasone 2020-02 Yes [id number] 2{puff} Inhale 2 [facility] propionate 2-02 Puffs 2 [facility]y of (FLOVENT 00:00: (two) [place] [facility]) 44 00 times Medical mcg/actuati daily. Branch on inhaler Rinse mouth after each use. azelastine 2020-02 Yes [id number] 1{spray Use 1 [facility] 137 mcg 2-02 } [place] [facility] (0.1 %) 00:00: each [place] nasal spray 00 nostril 2 Med ical (two) Branch times daily. Use in each nostril as directed fluticasone 2020-02 Yes [id number] 2{puff} Inhale 2 [facility] propionate 2-02 Puffs 2 ity of (FLOVENT 00:00: (two) [place] [facility]FA) 44 00 times Medical mcg/actuati daily. Branch on inhaler Rinse mouth after each use. azelastine 2020-02 Yes [id number] 1{spray Use 1 [facility] 137 mcg 2-02 } [place] [facility] (0.1 %) 00:00: each [place] nasal spray 00 nostril 2 Med ical (two) Branch times daily. Use in each nostril as directed fluticasone 2020-02 Yes [id number] 2{puff} Inhale 2 [facility] propionate 2-02 Puffs 2 [facility]y of (FLOVENT 00:00: (two) [place] [facility]FA) 44 00 times Medical mcg/actuati daily. Branch on inhaler Rinse mouth after each use. azelastine 2020-02 Yes [id number] 1{spray Use 1 [facility] 137 mcg 2-02 } [place] [facility] (0.1 %) 00:00: each [place] nasal spray 00 nostril 2 Med ical (two) Branch times daily. Use in each nostril as directed fluticasone 2020-02 Yes [id number] 2{puff} Inhale 2 [facility] propionate 2-02 Puffs 2 ity of (FLOVENT 00:00: (two) [place] [facility]FA) 44 00 times Medical mcg/actuati daily. Branch on inhaler Rinse mouth after each use. azelastine 2020-02 Yes [id number] 1{spray Use 1 [facility] 137 mcg 2-02 } [place] [facility] (0.1 %) 00:00: each [place] nasal spray 00 nostril 2 Med ical (two) Branch times daily. Use in each nostril as directed fluticasone 2020-02 Yes [id number] 2{puff} Inhale 2 [facility] propionate 2-02 Puffs 2 ity of (FLOVENT 00:00: (two) [place] [facility]FA) 44 00 times Medical mcg/actuati daily. Branch on inhaler Rinse mouth after each use. azelastine 2020-02 Yes [id number] 1{spray Use 1 [facility] 137 mcg 2-02 } [place] [facility] (0.1 %) 00:00: each [place] nasal spray 00 nostril 2 Med ical (two) Branch times daily. Use in each nostril as directed fluticasone 2020-02 Yes [id number] 2{puff} Inhale 2 [facility] propionate 2-02 Puffs 2 ity of (FLOVENT 00:00: (two) [place] [facility]) 44 00 times Medical mcg/actuati daily. Branch on inhaler Rinse mouth after each use. azelastine 2020-02 Yes [id number] 1{spray Use 1 [facility] 137 mcg 2-02 } [place] [facility] of (0.1 %) 00:00: each [place] nasal spray 00 nostril 2 Med ical (two) Branch times daily. Use in each nostril as directed fluticasone 2020-02 Yes [id number] 2{puff} Inhale 2 [facility] propionate 2-02 Puffs 2 ity of (FLOVENT 00:00: (two) [place] [facility]FA) 44 00 times Medical mcg/actuati daily. Branch on inhaler Rinse mouth after each use. azelastine 2020-02 Yes [id number] 1{spray Use 1 [facility] 137 mcg 2-02 } [place] [facility] of (0.1 %) 00:00: each [place] nasal spray 00 nostril 2 Med ical (two) Branch times daily. Use in each nostril as directed fluticasone 2020-02 Yes [id number] 2{puff} Inhale 2 [facility] propionate 2-02 Puffs 2 ity of (FLOVENT 00:00: (two) [place] [facility]FA) 44 00 times Medical mcg/actuati daily. Branch on inhaler Rinse mouth after each use. azelastine 2020-02 Yes [id number] 1{spray Use 1 [facility] 137 mcg 2-02 } [place] [facility] of (0.1 %) 00:00: each [place] nasal spray 00 nostril 2 Med ical (two) Branch times daily. Use in each nostril as directed fluticasone 2020-02 Yes [id number] 2{puff} Inhale 2 [facility] propionate 2-02 Puffs 2 ity of (FLOVENT 00:00: (two) [place] [facility]FA) 44 00 times Medical mcg/actuati daily. Branch on inhaler Rinse mouth after each use. azelastine 2020-02 Yes [id number] 1{spray Use 1 [facility] 137 mcg 2-02 } [place] [facility] of (0.1 %) 00:00: each [place] nasal spray 00 nostril 2 Med ical (two) Branch times daily. Use in each nostril as directed fluticasone 2020-02 Yes [id number] 2{puff} Inhale 2 [facility] propionate 2-02 Puffs 2 ity of (FLOVENT 00:00: (two) [place] [facility]FA) 44 00 times Medical mcg/actuati daily. Branch on inhaler Rinse mouth after each use. azelastine 2020-02 Yes [id number] 1{spray Use 1 [facility] 137 mcg 2-02 } [place] [facility] of (0.1 %) 00:00: each [place] nasal spray 00 nostril 2 Med ical (two) Branch times daily. Use in each nostril as directed fluticasone 2020-02 Yes [id number] 2{puff} Inhale 2 [facility] propionate 2-02 Puffs 2 ity of (FLOVENT 00:00: (two) [place] [facility]) 44 00 times Medical mcg/actuati daily. Branch on inhaler Rinse mouth after each use. azelastine 2020-02 Yes [id number] 1{spray Use 1 [facility] 137 mcg 2-02 } [place] [facility] (0.1 %) 00:00: each [place] nasal spray 00 nostril 2 Med ical (two) Branch times daily. Use in each nostril as directed fluticasone 2020-02 Yes [id number] 2{puff} Inhale 2 [facility] propionate 2-02 Puffs 2 ity of (FLOVENT 00:00: (two) [place] [facility]FA) 44 00 times Medical mcg/actuati daily. Branch on inhaler Rinse mouth after each use. azelastine 2020-02 Yes [id number] 1{spray Use 1 [facility] 137 mcg 2-02 } [place] [facility] of (0.1 %) 00:00: each [place] nasal spray 00 nostril 2 Med ical (two) Branch times daily. Use in each nostril as directed fluticasone 2020-02 Yes [id number] 2{puff} Inhale 2 [facility] propionate 2-02 Puffs 2 ity of (FLOVENT 00:00: (two) [place] [facility]FA) 44 00 times Medical mcg/actuati daily. Branch on inhaler Rinse mouth after each use. azelastine 2020-02 Yes [id number] 1{spray Use 1 [facility] 137 mcg 2-02 } [place] [facility] of (0.1 %) 00:00: each [place] nasal spray 00 nostril 2 Med ical (two) Branch times daily. Use in each nostril as directed fluticasone 2020-02 Yes [id number] 2{puff} Inhale 2 [facility] propionate 2-02 Puffs 2 ity of (FLOVENT 00:00: (two) [place] [facility]FA) 44 00 times Medical mcg/actuati daily. Branch on inhaler Rinse mouth after each use. azelastine 2020-02 Yes [id number] 1{spray Use 1 [facility] 137 mcg 2-02 } [place] [facility] of (0.1 %) 00:00: each [place] nasal spray 00 nostril 2 Med ical (two) Branch times daily. Use in each nostril as directed fluticasone 2020-02 Yes [id number] 2{puff} Inhale 2 [facility] propionate 2-02 Puffs 2 ity of (FLOVENT 00:00: (two) [place] [facility]FA) 44 00 times Medical mcg/actuati daily. Branch on inhaler Rinse mouth after each use. azelastine 2020-02 Yes [id number] 1{spray Use 1 [facility] 137 mcg 2-02 } [place] [facility] of (0.1 %) 00:00: each [place] nasal spray 00 nostril 2 Med ical (two) Branch times daily. Use in each nostril as directed fluticasone 2020-02 Yes [id number] 2{puff} Inhale 2 [facility] propionate 2-02 Puffs 2 ity of (FLOVENT 00:00: (two) [place] [facility]FA) 44 00 times Medical mcg/actuati daily. Branch on inhaler Rinse mouth after each use. azelastine 2020-02 Yes [id number] 1{spray Use 1 [facility] 137 mcg 2-02 } [place] [facility] of (0.1 %) 00:00: each [place] nasal spray 00 nostril 2 Med ical (two) Branch times daily. Use in each nostril as directed fluticasone 2020-02 Yes [id number] 2{puff} Inhale 2 [facility] propionate 2-02 Puffs 2 ity of (FLOVENT 00:00: (two) [place] [facility]FA) 44 00 times Medical mcg/actuati daily. Branch on inhaler Rinse mouth after each use. azelastine 2020-02 Yes [id number] 1{spray Use 1 [facility] 137 mcg 2-02 } [place] [facility] of (0.1 %) 00:00: each [place] nasal spray 00 nostril 2 Med ical (two) Branch times daily. Use in each nostril as directed fluticasone 2020-02 Yes [id number] 2{puff} Inhale 2 [facility] propionate 2-02 Puffs 2 ity of (FLOVENT 00:00: (two) [place] [facility]FA) 44 00 times Medical mcg/actuati daily. Branch on inhaler Rinse mouth after each use. azelastine 2020-02 Yes [id number] 1{spray Use 1 [facility] 137 mcg 2-02 } [place] [facility] of (0.1 %) 00:00: each [place] nasal spray 00 nostril 2 Med ical (two) Branch times daily. Use in each nostril as directed fluticasone 2020-02 Yes [id number] 2{puff} Inhale 2 [facility] propionate 2-02 Puffs 2 ity of (FLOVENT 00:00: (two) [place] [facility]FA) 44 00 times Medical mcg/actuati daily. Branch on inhaler Rinse mouth after each use. azelastine 2020-02 Yes [id number] 1{spray Use 1 [facility] 137 mcg 2-02 } [place] [facility] of (0.1 %) 00:00: each [place] nasal spray 00 nostril 2 Med ical (two) Branch times daily. Use in each nostril as directed fluticasone 2020-02 Yes [id number] 2{puff} Inhale 2 [facility] propionate 2-02 Puffs 2 ity of (FLOVENT 00:00: (two) [place] [facility]FA) 44 00 times Medical mcg/actuati daily. Branch on inhaler Rinse mouth after each use. azelastine 2020-02 Yes [id number] 1{spray Use 1 [facility] 137 mcg 2-02 } [place] [facility] of (0.1 %) 00:00: each [place] nasal spray 00 nostril 2 Med ical (two) Branch times daily. Use in each nostril as directed fluticasone 2020-02 Yes [id number] 2{puff} Inhale 2 [facility] propionate 2-02 Puffs 2 ity of (FLOVENT 00:00: (two) [place] [facility]FA) 44 00 times Medical mcg/actuati daily. Branch on inhaler Rinse mouth after each use. azelastine 2020-02 Yes [id number] 1{spray Use 1 [facility] 137 mcg 2-02 } [place] [facility] of (0.1 %) 00:00: each [place] nasal spray 00 nostril 2 Med ical (two) Branch times daily. Use in each nostril as directed fluticasone 2020-02 Yes [id number] 2{puff} Inhale 2 [facility] propionate 2-02 Puffs 2 ity of (FLOVENT 00:00: (two) [place] [facility]FA) 44 00 times Medical mcg/actuati daily. Branch on inhaler Rinse mouth after each use. azelastine 2020-02 Yes [id number] 1{spray Use 1 [facility] 137 mcg 2-02 } [place] [facility] of (0.1 %) 00:00: each [place] nasal spray 00 nostril 2 Med ical (two) Branch times daily. Use in each nostril as directed fluticasone 2020-02 Yes [id number] 2{puff} Inhale 2 [facility] propionate 2-02 Puffs 2 ity of (FLOVENT 00:00: (two) [place] [facility]FA) 44 00 times Medical mcg/actuati daily. Branch on inhaler Rinse mouth after each use. azelastine 2020-02 Yes [id number] 1{spray Use 1 [facility] 137 mcg 2-02 } [place] [facility] of (0.1 %) 00:00: each [place] nasal spray 00 nostril 2 Med ical (two) Branch times daily. Use in each nostril as directed fluticasone 2020-02 Yes [id number] 2{puff} Inhale 2 [facility] propionate 2-02 Puffs 2 ity of (FLOVENT 00:00: (two) [place] [facility]) 44 00 times Medical mcg/actuati daily. Branch on inhaler Rinse mouth after each use. azelastine 2020-02 Yes [id number] 1{spray Use 1 [facility] 137 mcg 2-02 } [place] [facility] of (0.1 %) 00:00: each [place] nasal spray 00 nostril 2 Med ical (two) Branch times daily. Use in each nostril as directed fluticasone 2020-02 Yes [id number] 2{puff} Inhale 2 [facility] propionate 2-02 Puffs 2 ity of (FLOVENT 00:00: (two) [place] [facility]) 44 00 times Medical mcg/actuati daily. Branch on inhaler Rinse mouth after each use. azelastine 2020-02 Yes [id number] 1{spray Use 1 [facility] 137 mcg 2-02 } [place] [facility] of (0.1 %) 00:00: each [place] nasal spray 00 nostril 2 Med ical (two) Branch times daily. Use in each nostril as directed fluticasone 2020-02 Yes [id number] 2{puff} Inhale 2 [facility] propionate 2-02 Puffs 2 ity of (FLOVENT 00:00: (two) [place] [facility]) 44 00 times Medical mcg/actuati daily. Branch on inhaler Rinse mouth after each use. azelastine 2020-02 Yes [id number] 1{spray Use 1 [facility] 137 mcg 2-02 } [place] [facility] of (0.1 %) 00:00: each [place] nasal spray 00 nostril 2 Med ical (two) Branch times daily. Use in each nostril as directed fluticasone 2020-02 Yes [id number] 2{puff} Inhale 2 [facility] propionate 2-02 Puffs 2 ity of (FLOVENT 00:00: (two) [place] [facility]) 44 00 times Medical mcg/actuati daily. Branch on inhaler Rinse mouth after each use. azelastine 2020-02 Yes [id number] 1{spray Use 1 [facility] 137 mcg 2-02 } [place] [facility] of (0.1 %) 00:00: each [place] nasal spray 00 nostril 2 Med ical (two) Branch times daily. Use in each nostril as directed fluticasone 2020-02 Yes [id number] 2{puff} Inhale 2 [facility] propionate 2-02 Puffs 2 ity of (FLOVENT 00:00: (two) [place] [facility]) 44 00 times Medical mcg/actuati daily. Branch on inhaler Rinse mouth after each use. azelastine 2020-02 Yes [id number] 1{spray Use 1 [facility] 137 mcg 2-02 } [place] [facility] of (0.1 %) 00:00: each [place] nasal spray 00 nostril 2 Med ical (two) Branch times daily. Use in each nostril as directed fluticasone 2020-02 Yes [id number] 2{puff} Inhale 2 [facility] propionate 2-02 Puffs 2 ity of (FLOVENT 00:00: (two) [place] [facility]) 44 00 times Medical mcg/actuati daily. Branch on inhaler Rinse mouth after each use. azelastine 2020-02 Yes [id number] 1{spray Use 1 [facility] 137 mcg 2-02 } [place] [facility] of (0.1 %) 00:00: each [place] nasal spray 00 nostril 2 Med ical (two) Branch times daily. Use in each nostril as directed fluticasone 2020-02 Yes [id number] 2{puff} Inhale 2 [facility] propionate 2-02 Puffs 2 ity of (FLOVENT 00:00: (two) [place] [facility]) 44 00 times Medical mcg/actuati daily. Branch on inhaler Rinse mouth after each use. azelastine 2020-02 Yes [id number] 1{spray Use 1 [facility] 137 mcg 2-02 } [place] [facility] of (0.1 %) 00:00: each [place] nasal spray 00 nostril 2 Med ical (two) Branch times daily. Use in each nostril as directed fluticasone 2020-02 Yes [id number] 2{puff} Inhale 2 [facility] propionate 2-02 Puffs 2 ity of (FLOVENT 00:00: (two) [place] [facility]) 44 00 times Medical mcg/actuati daily. Branch on inhaler Rinse mouth after each use. azelastine 2020-02 Yes [id number] 1{spray Use 1 [facility] 137 mcg 2-02 } [place] [facility] of (0.1 %) 00:00: each [place] nasal spray 00 nostril 2 Med ical (two) Branch times daily. Use in each nostril as directed fluticasone 2020-02 Yes [id number] 2{puff} Inhale 2 [facility] propionate 2-02 Puffs 2 ity of (FLOVENT 00:00: (two) [place] [facility]) 44 00 times Medical mcg/actuati daily. Branch on inhaler Rinse mouth after each use. azelastine 2020-02 Yes [id number] 1{spray Use 1 [facility] 137 mcg 2-02 } [place] [facility] of (0.1 %) 00:00: each [place] nasal spray 00 nostril 2 Med ical (two) Branch times daily. Use in each nostril as directed fluticasone 2020-02 Yes [id number] 2{puff} Inhale 2 [facility] propionate 2-02 Puffs 2 ity of (FLOVENT 00:00: (two) [place] [facility]) 44 00 times Medical mcg/actuati daily. Branch on inhaler Rinse mouth after each use. azelastine 2020-02 Yes [id number] 1{spray Use 1 [facility] 137 mcg 2-02 } [place] [facility] of (0.1 %) 00:00: each [place] nasal spray 00 nostril 2 Med ical (two) Branch times daily. Use in each nostril as directed fluticasone 2020-02 Yes [id number] 2{puff} Inhale 2 [facility] propionate 2-02 Puffs 2 ity of (FLOVENT 00:00: (two) [place] [facility]) 44 00 times Medical mcg/actuati daily. Branch on inhaler Rinse mouth after each use. azelastine 2020-02 Yes [id number] 1{spray Use 1 [facility] 137 mcg 2-02 } [place] [facility] of (0.1 %) 00:00: each [place] nasal spray 00 nostril 2 Med ical (two) Branch times daily. Use in each nostril as directed fluticasone 2020-02 Yes [id number] 2{puff} Inhale 2 [facility] propionate 2-02 Puffs 2 ity of (FLOVENT 00:00: (two) [place] [facility]) 44 00 times Medical mcg/actuati daily. Branch on inhaler Rinse mouth after each use. azelastine 2020-02 Yes [id number] 1{spray Use 1 [facility] 137 mcg 2-02 } [place] [facility] of (0.1 %) 00:00: each [place] nasal spray 00 nostril 2 Med ical (two) Branch times daily. Use in each nostril as directed fluticasone 2020-02 Yes [id number] 2{puff} Inhale 2 [facility] propionate 2-02 Puffs 2 ity of (FLOVENT 00:00: (two) [place] [facility]FA) 44 00 times Medical mcg/actuati daily. Branch on inhaler Rinse mouth after each use. azelastine 2020-02 Yes [id number] 1{spray Use 1 [facility] 137 mcg 2-02 } [place] [facility] of (0.1 %) 00:00: each [place] nasal spray 00 nostril 2 Med ical (two) Branch times daily. Use in each nostril as directed fluticasone 2020-02 Yes [id number] 2{puff} Inhale 2 [facility] propionate 2-02 Puffs 2 ity of (FLOVENT 00:00: (two) [place] [facility]FA) 44 00 times Medical mcg/actuati daily. Branch on inhaler Rinse mouth after each use. azelastine 2020-02 Yes [id number] 1{spray Use 1 [facility] 137 mcg 2-02 } [place] [facility] of (0.1 %) 00:00: each [place] nasal spray 00 nostril 2 Med ical (two) Branch times daily. Use in each nostril as directed fluticasone 2020-02 Yes [id number] 2{puff} Inhale 2 [facility] propionate 2-02 Puffs 2 ity of (FLOVENT 00:00: (two) [place] [facility]FA) 44 00 times Medical mcg/actuati daily. Branch on inhaler Rinse mouth after each use. azelastine 2020-02 Yes [id number] 1{spray Use 1 [facility] 137 mcg 2-02 } [place] [facility] of (0.1 %) 00:00: each [place] nasal spray 00 nostril 2 Med ical (two) Branch times daily. Use in each nostril as directed fluticasone 2020-02 Yes [id number] 2{puff} Inhale 2 [facility] propionate 2-02 Puffs 2 ity of (FLOVENT 00:00: (two) [place] [facility]FA) 44 00 times Medical mcg/actuati daily. Branch on inhaler Rinse mouth after each use. azelastine 2020-02 Yes [id number] 1{spray Use 1 [facility] 137 mcg 2-02 } [place] [facility] of (0.1 %) 00:00: each [place] nasal spray 00 nostril 2 Med ical (two) Branch times daily. Use in each nostril as directed fluticasone 2020-02 Yes [id number] 2{puff} Inhale 2 [facility] propionate 2-02 Puffs 2 ity of (FLOVENT 00:00: (two) [place] [facility]FA) 44 00 times Medical mcg/actuati daily. Branch on inhaler Rinse mouth after each use. azelastine 2020-02 Yes [id number] 1{spray Use 1 [facility] 137 mcg 2-02 } [place] [facility] of (0.1 %) 00:00: each [place] nasal spray 00 nostril 2 Med ical (two) Branch times daily. Use in each nostril as directed fluticasone 2020-02 Yes [id number] 2{puff} Inhale 2 [facility] propionate 2-02 Puffs 2 ity of (FLOVENT 00:00: (two) [place] [facility]FA) 44 00 times Medical mcg/actuati daily. Branch on inhaler Rinse mouth after each use. azelastine 2020-02 Yes [id number] 1{spray Use 1 [facility] 137 mcg 2-02 } [place] [facility] of (0.1 %) 00:00: each [place] nasal spray 00 nostril 2 Med ical (two) Branch times daily. Use in each nostril as directed fluticasone 2020-02 Yes [id number] 2{puff} Inhale 2 [facility] propionate 2-02 Puffs 2 ity of (FLOVENT 00:00: (two) [place] [facility]FA) 44 00 times Medical mcg/actuati daily. Branch on inhaler Rinse mouth after each use. azelastine 2020-02 Yes [id number] 1{spray Use 1 [facility] 137 mcg 2-02 } [place] [facility] of (0.1 %) 00:00: each [place] nasal spray 00 nostril 2 Med ical (two) Branch times daily. Use in each nostril as directed fluticasone 2020-02 Yes [id number] 2{puff} Inhale 2 [facility] propionate 2-02 Puffs 2 ity of (FLOVENT 00:00: (two) [place] [facility]FA) 44 00 times Medical mcg/actuati daily. Branch on inhaler Rinse mouth after each use. azelastine 2020-02 Yes [id number] 1{spray Use 1 [facility] 137 mcg 2-02 } [place] [facility] (0.1 %) 00:00: each [place] nasal spray 00 nostril 2 Med ical (two) Branch times daily. Use in each nostril as directed fluticasone 2020-02 Yes [id number] 2{puff} Inhale 2 [facility] propionate 2-02 Puffs 2 ity of (FLOVENT 00:00: (two) [place] HFA) 44 00 times Medical mcg/actuati daily. Branch on inhaler Rinse mouth after each use. azelastine 2020-02 Yes [id number] 1{spray Use 1 [facility] 137 mcg 2-02 } [place] [facility] (0.1 %) 00:00: each [place] nasal spray 00 nostril 2 Med ical (two) Branch times daily. Use in each nostril as directed fluticasone 2020-02 Yes [id number] 2{puff} Inhale 2 [facility] propionate 2-02 Puffs 2 ity of (FLOVENT 00:00: (two) [place] HFA) 44 00 times Medical mcg/actuati daily. Branch on inhaler Rinse mouth after each use. azelastine 2020-02 Yes [id number] 1{spray Use 1 [facility] 137 mcg 2-02 } [place] [facility] (0.1 %) 00:00: each [place] nasal spray 00 nostril 2 Med ical (two) Branch times daily. Use in each nostril as directed fluticasone 2020-02 Yes [id number] 2{puff} Inhale 2 [facility] propionate 2-02 Puffs 2 ity of (FLOVENT 00:00: (two) [place] HFA) 44 00 times Medical mcg/actuati daily. Branch on inhaler Rinse mouth after each use. azelastine 2020-02 Yes [id number] 1{spray Use 1 [facility] 137 mcg 2-02 } [place] [facility] (0.1 %) 00:00: each [place] nasal spray 00 nostril 2 Med ical (two) Branch times daily. Use in each nostril as directed fluticasone 2020-02 Yes [id number] 2{puff} Inhale 2 [facility] propionate 2-02 Puffs 2 ity of (FLOVENT 00:00: (two) [place] HFA) 44 00 times Medical mcg/actuati daily. Branch on inhaler Rinse mouth after each use. azelastine 2020-02 Yes [id number] 1{spray Use 1 [facility] 137 mcg 2-02 } [place] [facility] (0.1 %) 00:00: each [place] nasal spray 00 nostril 2 Med ical (two) Branch times daily. Use in each nostril as directed fluticasone 2020-02 Yes [id number] 2{puff} Inhale 2 [facility] propionate 2-02 Puffs 2 ity of (FLOVENT 00:00: (two) [place] HFA) 44 00 times Medical mcg/actuati daily. Branch on inhaler Rinse mouth after each use. azelastine 2020-02 Yes [id number] 1{spray Use 1 [facility] 137 mcg 2-02 } [place] [facility] (0.1 %) 00:00: each [place] nasal spray 00 nostril 2 Med ical (two) Branch times daily. Use in each nostril as directed fluticasone 2020-02 Yes [id number] 2{puff} Inhale 2 [facility] propionate 2-02 Puffs 2 ity of (FLOVENT 00:00: (two) [place] HFA) 44 00 times Medical mcg/actuati daily. Branch on inhaler Rinse mouth after each use. azelastine 2020-02 Yes [id number] 1{spray Use 1 [facility] 137 mcg 2-02 } [place] [facility] (0.1 %) 00:00: each [place] nasal spray 00 nostril 2 Med ical (two) Branch times daily. Use in each nostril as directed fluticasone 2020-02 Yes [id number] 2{puff} Inhale 2 [facility] propionate 2-02 Puffs 2 ity of (FLOVENT 00:00: (two) [place] HFA) 44 00 times Medical mcg/actuati daily. Branch on inhaler Rinse mouth after each use. azelastine 2020-02 Yes [id number] 1{spray Use 1 [facility] 137 mcg 2-02 } [place] [facility] (0.1 %) 00:00: each [place] nasal spray 00 nostril 2 Med ical (two) Branch times daily. Use in each nostril as directed fluticasone 2020-02 Yes [id number] 2{puff} Inhale 2 [facility] propionate 2-02 Puffs 2 ity of (FLOVENT 00:00: (two) [place] HFA) 44 00 times Medical mcg/actuati daily. Branch on inhaler Rinse mouth after each use. azelastine 2020-02 Yes [id number] 1{spray Use 1 [facility] 137 mcg 2-02 } [place] [facility] (0.1 %) 00:00: each [place] nasal spray 00 nostril 2 Med ical (two) Branch times daily. Use in each nostril as directed fluticasone 2020-02 Yes [id number] 2{puff} Inhale 2 [facility] propionate 2-02 Puffs 2 ity of (FLOVENT 00:00: (two) [place] HFA) 44 00 times Medical mcg/actuati daily. Branch on inhaler Rinse mouth after each use. azelastine 2020-02 Yes [id number] 1{spray Use 1 [facility] 137 mcg 2-02 } [place] [facility] (0.1 %) 00:00: each [place] nasal spray 00 nostril 2 Med ical (two) Branch times daily. Use in each nostril as directed fluticasone 2020-02 Yes [id number] 2{puff} Inhale 2 [facility] propionate 2-02 Puffs 2 ity of (FLOVENT 00:00: (two) [place] HFA) 44 00 times Medical mcg/actuati daily. Branch on inhaler Rinse mouth after each use. azelastine 2020-02 Yes [id number] 1{spray Use 1 [facility] 137 mcg 2-02 } [place] [facility] (0.1 %) 00:00: each [place] nasal spray 00 nostril 2 Med ical (two) Branch times daily. Use in each nostril as directed fluticasone 2020-02 Yes [id number] 2{puff} Inhale 2 [facility] propionate 2-02 Puffs 2 ity of (FLOVENT 00:00: (two) [place] HFA) 44 00 times Medical mcg/actuati daily. Branch on inhaler Rinse mouth after each use. azelastine 2020-02 Yes [id number] 1{spray Use 1 [facility] 137 mcg 2-02 } [place] [facility] (0.1 %) 00:00: each [place] nasal spray 00 nostril 2 Med ical (two) Branch times daily. Use in each nostril as directed fluticasone 2020-02 Yes [id number] 2{puff} Inhale 2 [facility] propionate 2-02 Puffs 2 ity of (FLOVENT 00:00: (two) [place] HFA) 44 00 times Medical mcg/actuati daily. Branch on inhaler Rinse mouth after each use. azelastine 2020-02 Yes [id number] 1{spray Use 1 [facility] 137 mcg 2-02 } [place] [facility] (0.1 %) 00:00: each [place] nasal spray 00 nostril 2 Med ical (two) Branch times daily. Use in each nostril as directed fluticasone 2020-02 Yes [id number] 2{puff} Inhale 2 [facility] propionate 2-02 Puffs 2 ity of (FLOVENT 00:00: (two) [place] HFA) 44 00 times Medical mcg/actuati daily. Branch on inhaler Rinse mouth after each use. azelastine 2020-02 Yes [id number] 1{spray Use 1 [facility] 137 mcg 2-02 } [place] [facility] (0.1 %) 00:00: each [place] nasal spray 00 nostril 2 Med ical (two) Branch times daily. Use in each nostril as directed fluticasone 2020-02 Yes [id number] 2{puff} Inhale 2 [facility] propionate 2-02 Puffs 2 ity of (FLOVENT 00:00: (two) [place] HFA) 44 00 times Medical mcg/actuati daily. Branch on inhaler Rinse mouth after each use. azelastine 2020-02 Yes [id number] 1{spray Use 1 [facility] 137 mcg 2-02 } [place] [facility] (0.1 %) 00:00: each [place] nasal spray 00 nostril 2 Med ical (two) Branch times daily. Use in each nostril as directed fluticasone 2020-02 Yes [id number] 2{puff} Inhale 2 [facility] propionate 2-02 Puffs 2 ity of (FLOVENT 00:00: (two) [place] HFA) 44 00 times Medical mcg/actuati daily. Branch on inhaler Rinse mouth after each use. azelastine 2020-02 Yes [id number] 1{spray Use 1 [facility] 137 mcg 2-02 } [place] [facility] (0.1 %) 00:00: each [place] nasal spray 00 nostril 2 Med ical (two) Branch times daily. Use in each nostril as directed fluticasone 2020-02 Yes [id number] 2{puff} Inhale 2 [facility] propionate 2-02 Puffs 2 ity of (FLOVENT 00:00: (two) [place] HFA) 44 00 times Medical mcg/actuati daily. Branch on inhaler Rinse mouth after each use. azelastine 2020-02 Yes [id number] 1{spray Use 1 [facility] 137 mcg 2-02 } [place] [facility] (0.1 %) 00:00: each [place] nasal spray 00 nostril 2 Med ical (two) Branch times daily. Use in each nostril as directed fluticasone 2020-02 Yes [id number] 2{puff} Inhale 2 [facility] propionate 2-02 Puffs 2 ity of (FLOVENT 00:00: (two) [place] HFA) 44 00 times Medical mcg/actuati daily. Branch on inhaler Rinse mouth after each use. azelastine 2020-02 Yes [id number] 1{spray Use 1 [facility] 137 mcg 2-02 } [place] [facility] (0.1 %) 00:00: each [place] nasal spray 00 nostril 2 Med ical (two) Branch times daily. Use in each nostril as directed fluticasone 2020-02 Yes [id number] 2{puff} Inhale 2 [facility] propionate 2-02 Puffs 2 ity of (FLOVENT 00:00: (two) [place] HFA) 44 00 times Medical mcg/actuati daily. Branch on inhaler Rinse mouth after each use. azelastine 2020-02 Yes [id number] 1{spray Use 1 [facility] 137 mcg 2-02 } [place] [facility] (0.1 %) 00:00: each [place] nasal spray 00 nostril 2 Med ical (two) Branch times daily. Use in each nostril as directed fluticasone 2020-02 Yes [id number] 2{puff} Inhale 2 [facility] propionate 2-02 Puffs 2 ity of (FLOVENT 00:00: (two) [place] HFA) 44 00 times Medical mcg/actuati daily. Branch on inhaler Rinse mouth after each use. azelastine 2020-02 Yes [id number] 1{spray Use 1 [facility] 137 mcg 2-02 } [place] [facility] (0.1 %) 00:00: each [place] nasal spray 00 nostril 2 Med ical (two) Branch times daily. Use in each nostril as directed fluticasone 2020-02 Yes [id number] 2{puff} Inhale 2 [facility] propionate 2-02 Puffs 2 ity of (FLOVENT 00:00: (two) [place] HFA) 44 00 times Medical mcg/actuati daily. Branch on inhaler Rinse mouth after each use. azelastine 2020-02 Yes [id number] 1{spray Use 1 [facility] 137 mcg 2-02 } [place] [facility] (0.1 %) 00:00: each [place] nasal spray 00 nostril 2 Med ical (two) Branch times daily. Use in each nostril as directed fluticasone 2020-02 Yes [id number] 2{puff} Inhale 2 [facility] propionate 2-02 Puffs 2 ity of (FLOVENT 00:00: (two) [place] HFA) 44 00 times Medical mcg/actuati daily. Branch on inhaler Rinse mouth after each use. azelastine 2020-02 Yes [id number] 1{spray Use 1 [facility] 137 mcg 2-02 } [place] [facility] of (0.1 %) 00:00: each [place] nasal spray 00 nostril 2 Med ical (two) Branch times daily. Use in each nostril as directed fluticasone 2020-02 Yes [id number] 2{puff} Inhale 2 [facility] propionate 2-02 Puffs 2 ity of (FLOVENT 00:00: (two) [place] HFA) 44 00 times Medical mcg/actuati daily. Branch on inhaler Rinse mouth after each use. azelastine 2020-02 Yes [id number] 1{spray Use 1 [facility] 137 mcg 2-02 } [place] [facility] of (0.1 %) 00:00: each [place] nasal spray 00 nostril 2 Med ical (two) Branch times daily. Use in each nostril as directed fluticasone 2020-02 Yes [id number] 2{puff} Inhale 2 [facility] propionate 2-02 Puffs 2 ity of (FLOVENT 00:00: (two) [place] HFA) 44 00 times Medical mcg/actuati daily. Branch on inhaler Rinse mouth after each use. azelastine 2020-02 Yes [id number] 1{spray Use 1 [facility] 137 mcg 2-02 } [place] [facility] of (0.1 %) 00:00: each [place] nasal spray 00 nostril 2 Med ical (two) Branch times daily. Use in each nostril as directed fluticasone 2020-02 Yes [id number] 2{puff} Inhale 2 [facility] propionate 2-02 Puffs 2 ity of (FLOVENT 00:00: (two) [place] HFA) 44 00 times Medical mcg/actuati daily. Branch on inhaler Rinse mouth after each use. azelastine 2020-02 Yes [id number] 1{spray Use 1 [facility] 137 mcg 2-02 } [place] [facility] of (0.1 %) 00:00: each [place] nasal spray 00 nostril 2 Med ical (two) Branch times daily. Use in each nostril as directed fluticasone 2020-02 Yes [id number] 2{puff} Inhale 2 [facility] propionate 2-02 Puffs 2 ity of (FLOVENT 00:00: (two) [place] HFA) 44 00 times Medical mcg/actuati daily. Branch on inhaler Rinse mouth after each use. azelastine 2020-02 Yes [id number] 1{spray Use 1 [facility] 137 mcg 2-02 } [place] [facility] of (0.1 %) 00:00: each [place] nasal spray 00 nostril 2 Med ical (two) Branch times daily. Use in each nostril as directed fluticasone 2020-02 Yes [id number] 2{puff} Inhale 2 [facility] propionate 2-02 Puffs 2 ity of (FLOVENT 00:00: (two) [place] HFA) 44 00 times Medical mcg/actuati daily. Branch on inhaler Rinse mouth after each use. azelastine 2020-02 Yes [id number] 1{spray Use 1 [facility] 137 mcg 2-02 } [place] [facility] of (0.1 %) 00:00: each [place] nasal spray 00 nostril 2 Med ical (two) Branch times daily. Use in each nostril as directed fluticasone 2020-02 Yes [id number] 2{puff} Inhale 2 [facility] propionate 2-02 Puffs 2 ity of (FLOVENT 00:00: (two) [place] HFA) 44 00 times Medical mcg/actuati daily. Branch on inhaler Rinse mouth after each use. azelastine 2020-02 Yes [id number] 1{spray Use 1 [facility] 137 mcg 2-02 } [place] [facility] of (0.1 %) 00:00: each [place] nasal spray 00 nostril 2 Med ical (two) Branch times daily. Use in each nostril as directed fluticasone 2020-02 Yes [id number] 2{puff} Inhale 2 [facility] propionate 2-02 Puffs 2 ity of (FLOVENT 00:00: (two) [place] HFA) 44 00 times Medical mcg/actuati daily. Branch on inhaler Rinse mouth after each use. azelastine 2020-02 Yes [id number] 1{spray Use 1 [facility] 137 mcg 2-02 } [place] [facility] of (0.1 %) 00:00: each [place] nasal spray 00 nostril 2 Med ical (two) Branch times daily. Use in each nostril as directed fluticasone 2020-02 Yes [id number] 2{puff} Inhale 2 [facility] propionate 2-02 Puffs 2 ity of (FLOVENT 00:00: (two) [place] HFA) 44 00 times Medical mcg/actuati daily. Branch on inhaler Rinse mouth after each use. azelastine 2020-02 Yes [id number] 1{spray Use 1 [facility] 137 mcg 2-02 } [place] [facility] of (0.1 %) 00:00: each [place] nasal spray 00 nostril 2 Med ical (two) Branch times daily. Use in each nostril as directed fluticasone 2020-02 Yes [id number] 2{puff} Inhale 2 [facility] propionate 2-02 Puffs 2 ity of (FLOVENT 00:00: (two) [place] HFA) 44 00 times Medical mcg/actuati daily. Branch on inhaler Rinse mouth after each use. azelastine 2020-02 Yes [id number] 1{spray Use 1 [facility] 137 mcg 2-02 } [place] [facility] of (0.1 %) 00:00: each [place] nasal spray 00 nostril 2 Med ical (two) Branch times daily. Use in each nostril as directed fluticasone 2020-02 Yes [id number] 2{puff} Inhale 2 [facility] propionate 2-02 Puffs 2 ity of (FLOVENT 00:00: (two) [place] HFA) 44 00 times Medical mcg/actuati daily. Branch on inhaler Rinse mouth after each use. azelastine 2020-02 Yes [id number] 1{spray Use 1 [facility] 137 mcg 2-02 } [place] [facility] of (0.1 %) 00:00: each [place] nasal spray 00 nostril 2 Med ical (two) Branch times daily. Use in each nostril as directed fluticasone 2020-02 Yes [id number] 2{puff} Inhale 2 [facility] propionate 2-02 Puffs 2 ity of (FLOVENT 00:00: (two) [place] HFA) 44 00 times Medical mcg/actuati daily. Branch on inhaler Rinse mouth after each use. azelastine 2020-02 Yes [id number] 1{spray Use 1 [facility] 137 mcg 2-02 } [place] [facility] of (0.1 %) 00:00: each [place] nasal spray 00 nostril 2 Med ical (two) Branch times daily. Use in each nostril as directed fluticasone 2020-02 Yes [id number] 2{puff} Inhale 2 [facility] propionate 2-02 Puffs 2 ity of (FLOVENT 00:00: (two) [place] HFA) 44 00 times Medical mcg/actuati daily. Branch on inhaler Rinse mouth after each use. azelastine 2020-02 Yes [id number] 1{spray Use 1 [facility] 137 mcg 2-02 } [place] [facility] of (0.1 %) 00:00: each [place] nasal spray 00 nostril 2 Med ical (two) Branch times daily. Use in each nostril as directed fluticasone 2020-02 Yes [id number] 2{puff} Inhale 2 [facility] propionate 2-02 Puffs 2 ity of (FLOVENT 00:00: (two) [place] HFA) 44 00 times Medical mcg/actuati daily. Branch on inhaler Rinse mouth after each use. azelastine 2020-02 Yes [id number] 1{spray Use 1 [facility] 137 mcg 2-02 } [place] in [facility] of (0.1 %) 00:00: each [place] nasal spray 00 nostril 2 Med ical (two) Branch times daily. Use in each nostril as directed fluticasone 2020-02 Yes [id number] 2{puff} Inhale 2 [facility] propionate 2-02 Puffs 2 ity of (FLOVENT 00:00: (two) [place] HFA) 44 00 times Medical mcg/actuati daily. Branch on inhaler Rinse mouth after each use. azelastine 2020-02 Yes [id number] 1{spray Use 1 [facility] 137 mcg 2-02 } [place] [facility] of (0.1 %) 00:00: each [place] nasal spray 00 nostril 2 Med ical (two) Branch times daily. Use in each nostril as directed fluticasone 2020-02 Yes [id number] 2{puff} Inhale 2 [facility] propionate 2-02 Puffs 2 ity of (FLOVENT 00:00: (two) [place] HFA) 44 00 times Medical mcg/actuati daily. Branch on inhaler Rinse mouth after each use. azelastine 2020-02 Yes [id number] 1{spray Use 1 [facility] 137 mcg 2-02 } [place] [facility] of (0.1 %) 00:00: each [place] nasal spray 00 nostril 2 Med ical (two) Branch times daily. Use in each nostril as directed fluticasone 2020-02 Yes [id number] 2{puff} Inhale 2 [facility] propionate 2-02 Puffs 2 ity of (FLOVENT 00:00: (two) [place] HFA) 44 00 times Medical mcg/actuati daily. Branch on inhaler Rinse mouth after each use. azelastine 2020-02 Yes [id number] 1{spray Use 1 [facility] 137 mcg 2-02 } [place] [facility] of (0.1 %) 00:00: each [place] nasal spray 00 nostril 2 Med ical (two) Branch times daily. Use in each nostril as directed fluticasone 2020-02 Yes [id number] 2{puff} Inhale 2 [facility] propionate 2-02 Puffs 2 ity of (FLOVENT 00:00: (two) [place] HFA) 44 00 times Medical mcg/actuati daily. Branch on inhaler Rinse mouth after each use. azelastine 2020-02 Yes [id number] 1{spray Use 1 [facility] 137 mcg 2-02 } [place] in [facility] of (0.1 %) 00:00: each [place] nasal spray 00 nostril 2 Med ical (two) Branch times daily. Use in each nostril as directed fluticasone 2020-02 Yes [id number] 2{puff} Inhale 2 [facility] propionate 2-02 Puffs 2 ity of (FLOVENT 00:00: (two) [place] HFA) 44 00 times Medical mcg/actuati daily. Branch on inhaler Rinse mouth after each use. azelastine 2020-02 Yes [id number] 1{spray Use 1 [facility] 137 mcg 2-02 } [place] [facility] of (0.1 %) 00:00: each [place] nasal spray 00 nostril 2 Med ical (two) Branch times daily. Use in each nostril as directed fluticasone 2020-02 Yes [id number] 2{puff} Inhale 2 [facility] propionate 2-02 Puffs 2 ity of (FLOVENT 00:00: (two) [place] HFA) 44 00 times Medical mcg/actuati daily. Branch on inhaler Rinse mouth after each use. azelastine 2020-02 Yes [id number] 1{spray Use 1 [facility] 137 mcg 2-02 } [place] in [facility] of (0.1 %) 00:00: each [place] nasal spray 00 nostril 2 Med ical (two) Branch times daily. Use in each nostril as directed fluticasone 2020-02 Yes [id number] 2{puff} Inhale 2 [facility] propionate 2-02 Puffs 2 ity of (FLOVENT 00:00: (two) [place] HFA) 44 00 times Medical mcg/actuati daily. Branch on inhaler Rinse mouth after each use. azelastine 2020-02 Yes [id number] 1{spray Use 1 [facility] 137 mcg 2-02 } [place] [facility] of (0.1 %) 00:00: each [place] nasal spray 00 nostril 2 Med ical (two) Branch times daily. Use in each nostril as directed fluticasone 2020-02 Yes [id number] 2{puff} Inhale 2 [facility] propionate 2-02 Puffs 2 ity of (FLOVENT 00:00: (two) [place] HFA) 44 00 times Medical mcg/actuati daily. Branch on inhaler Rinse mouth after each use. azelastine 2020-02 Yes [id number] 1{spray Use 1 [facility] 137 mcg 2-02 } [place] in [facility] of (0.1 %) 00:00: each [place] nasal spray 00 nostril 2 Med ical (two) Branch times daily. Use in each nostril as directed fluticasone 2020-02 Yes [id number] 2{puff} Inhale 2 [facility] propionate 2-02 Puffs 2 ity of (FLOVENT 00:00: (two) [place] HFA) 44 00 times Medical mcg/actuati daily. Branch on inhaler Rinse mouth after each use. azelastine 2020-02 Yes [id number] 1{spray Use 1 [facility] 137 mcg 2-02 } [place] [facility] of (0.1 %) 00:00: each [place] nasal spray 00 nostril 2 Med ical (two) Branch times daily. Use in each nostril as directed fluticasone 2020-02 Yes [id number] 2{puff} Inhale 2 [facility] propionate 2-02 Puffs 2 ity of (FLOVENT 00:00: (two) [place] HFA) 44 00 times Medical mcg/actuati daily. Branch on inhaler Rinse mouth after each use. azelastine 2020-02 Yes [id number] 1{spray Use 1 [facility] 137 mcg 2-02 } [place] [facility] of (0.1 %) 00:00: each [place] nasal spray 00 nostril 2 Med ical (two) Branch times daily. Use in each nostril as directed fluticasone 2020-02 Yes [id number] 2{puff} Inhale 2 [facility] propionate 2-02 Puffs 2 ity of (FLOVENT 00:00: (two) [place] HFA) 44 00 times Medical mcg/actuati daily. Branch on inhaler Rinse mouth after each use. azelastine 2020-02 Yes [id number] 1{spray Use 1 [facility] 137 mcg 2-02 } [place] in [facility] of (0.1 %) 00:00: each [place] nasal spray 00 nostril 2 Med ical (two) Branch times daily. Use in each nostril as directed fluticasone 2020-02 Yes [id number] 2{puff} Inhale 2 [facility] propionate 2-02 Puffs 2 ity of (FLOVENT 00:00: (two) [place] HFA) 44 00 times Medical mcg/actuati daily. Branch on inhaler Rinse mouth after each use. azelastine 2020-02 Yes [id number] 1{spray Use 1 [facility] 137 mcg 2-02 } [place] in [facility] of (0.1 %) 00:00: each [place] nasal spray 00 nostril 2 Med ical (two) Branch times daily. Use in each nostril as directed fluticasone 2020-02 Yes [id number] 2{puff} Inhale 2 [facility] propionate 2-02 Puffs 2 ity of (FLOVENT 00:00: (two) [place] HFA) 44 00 times Medical mcg/actuati daily. Branch on inhaler Rinse mouth after each use. azelastine 2020-02 Yes [id number] 1{spray Use 1 [facility] 137 mcg 2-02 } [place] in [facility] of (0.1 %) 00:00: each [place] nasal spray 00 nostril 2 Med ical (two) Branch times daily. Use in each nostril as directed fluticasone 2020-02 Yes [id number] 2{puff} Inhale 2 [facility] propionate 2-02 Puffs 2 ity of (FLOVENT 00:00: (two) [place] HFA) 44 00 times Medical mcg/actuati daily. Branch on inhaler Rinse mouth after each use. azelastine 2020-02 Yes [id number] 1{spray Use 1 [facility] 137 mcg 2-02 } [place] [facility] of (0.1 %) 00:00: each [place] nasal spray 00 nostril 2 Med ical (two) Branch times daily. Use in each nostril as directed fluticasone 2020-02 Yes [id number] 2{puff} Inhale 2 [facility] propionate 2-02 Puffs 2 ity of (FLOVENT 00:00: (two) [place] HFA) 44 00 times Medical mcg/actuati daily. Branch on inhaler Rinse mouth after each use. azelastine 2020-02 Yes [id number] 1{spray Use 1 [facility] 137 mcg 2-02 } [place] in [facility] of (0.1 %) 00:00: each [place] nasal spray 00 nostril 2 Med ical (two) Branch times daily. Use in each nostril as directed fluticasone 2020-02 Yes [id number] 2{puff} Inhale 2 [facility] propionate 2-02 Puffs 2 ity of (FLOVENT 00:00: (two) [place] HFA) 44 00 times Medical mcg/actuati daily. Branch on inhaler Rinse mouth after each use. azelastine 2020-02 Yes [id number] 1{spray Use 1 [facility] 137 mcg 2-02 } [place] in [facility] of (0.1 %) 00:00: each [place] nasal spray 00 nostril 2 Med ical (two) Branch times daily. Use in each nostril as directed fluticasone 2020-02 Yes [id number] 2{puff} Inhale 2 [facility] propionate 2-02 Puffs 2 ity of (FLOVENT 00:00: (two) [place] HFA) 44 00 times Medical mcg/actuati daily. Branch on inhaler Rinse mouth after each use. azelastine 2020-02 Yes [id number] 1{spray Use 1 [facility] 137 mcg 2-02 } [place] in [facility] of (0.1 %) 00:00: each [place] nasal spray 00 nostril 2 Med ical (two) Branch times daily. Use in each nostril as directed fluticasone 2020-02 Yes [id number] 2{puff} Inhale 2 [facility] propionate 2-02 Puffs 2 ity of (FLOVENT 00:00: (two) [place] HFA) 44 00 times Medical mcg/actuati daily. Branch on inhaler Rinse mouth after each use. azelastine 2020-02 Yes [id number] 1{spray Use 1 [facility] 137 mcg 2-02 } [place] in [facility] of (0.1 %) 00:00: each [place] nasal spray 00 nostril 2 Med ical (two) Branch times daily. Use in each nostril as directed fluticasone 2020-02 Yes [id number] 2{puff} Inhale 2 [facility] propionate 2-02 Puffs 2 ity of (FLOVENT 00:00: (two) [place] HFA) 44 00 times Medical mcg/actuati daily. Branch on inhaler Rinse mouth after each use. azelastine 2020-02 Yes [id number] 1{spray Use 1 [facility] 137 mcg 2-02 } [place] [facility] of (0.1 %) 00:00: each [place] nasal spray 00 nostril 2 Med ical (two) Branch times daily. Use in each nostril as directed fluticasone 2020-02 Yes [id number] 2{puff} Inhale 2 [facility] propionate 2-02 Puffs 2 ity of (FLOVENT 00:00: (two) [place] HFA) 44 00 times Medical mcg/actuati daily. Branch on inhaler Rinse mouth after each use. mirtazapine 2020-02- No [id number] 7.5mg Take 1 [facility] 7.5 mg 2-03 22-15 tablet by ity of tablet 00:00: 00:00 mouth at [place] 00 :00 bedtime. [facility] Branch mirtazapine 2020-02- No [id number] 7.5mg Take 1 [facility] 7.5 mg 2- 07-15 tablet by ity of tablet 00:00: 00:00 mouth at [place] 00 :00 bedtime. Medical Branch albuterol Yes [id number] 2{puff} Inhale 2 [facility] (PROAIR 9-03 Puffs ity of HFA) 90 00:00: every 6 [place] mcg/actuati 00 (six) Medical on inhaler hours as Branc h needed for Wheezing or Shortness of Breath. albuterol Yes [id number] 2{puff} Inhale 2 [facility] (PROAIR 9-03 Puffs ity of HFA) 90 00:00: every 6 [place] mcg/actuati 00 (six) Medical on inhaler hours as Branc h needed for Wheezing or Shortness of Breath. albuterol Yes [id number] 2{puff} Inhale 2 [facility] (PROAIR 9-03 Puffs ity of HFA) 90 00:00: every 6 [place] mcg/actuati 00 (six) Medical on inhaler hours as Branc h needed for Wheezing or Shortness of Breath. albuterol Yes [id number] 2{puff} Inhale 2 [facility] (PROAIR 9-03 Puffs ity of HFA) 90 00:00: every 6 [place] mcg/actuati 00 (six) Medical on inhaler hours as Branc h needed for Wheezing or Shortness of Breath. albuterol Yes [id number] 2{puff} Inhale 2 [facility] (PROAIR 9-03 Puffs ity of HFA) 90 00:00: every 6 [place] mcg/actuati 00 (six) Medical on inhaler hours as Branc h needed for Wheezing or Shortness of Breath. albuterol Yes [id number] 2{puff} Inhale 2 [facility] (PROAIR 9-03 Puffs ity of HFA) 90 00:00: every 6 [place] mcg/actuati 00 (six) Medical on inhaler hours as Branc h needed for Wheezing or Shortness of Breath. albuterol Yes [id number] 2{puff} Inhale 2 [facility] (PROAIR 9-03 Puffs ity of HFA) 90 00:00: every 6 [place] mcg/actuati 00 (six) Medical on inhaler hours as Branc h needed for Wheezing or Shortness of Breath. albuterol Yes [id number] 2{puff} Inhale 2 [facility] (PRO[facility]IR 9-03 Puffs ity of HFA) 90 00:00: every 6 [place] mcg/actuati 00 (six) Medical on inhaler hours as Branc h needed for Wheezing or Shortness of Breath. albuterol Yes [id number] 2{puff} Inhale 2 [facility] (PROAIR 9-03 Puffs ity of HFA) 90 00:00: every 6 [place] mcg/actuati 00 (six) Medical on inhaler hours as Branc h needed for Wheezing or Shortness of Breath. albuterol Yes [id number] 2{puff} Inhale 2 [facility] (PROAIR 9-03 Puffs ity of HFA) 90 00:00: every 6 [place] mcg/actuati 00 (six) Medical on inhaler hours as Branc h needed for Wheezing or Shortness of Breath. albuterol Yes [id number] 2{puff} Inhale 2 [facility] (PROAIR 9-03 Puffs ity of HFA) 90 00:00: every 6 [place] mcg/actuati 00 (six) Medical on inhaler hours as Branc h needed for Wheezing or Shortness of Breath. albuterol 2021-0 Yes [id number] 2{puff} Inhale 2 [facility] (PROAIR 9-03 Puffs ity of HFA) 90 00:00: every 6 [place] mcg/actuati 00 (six) Medical on inhaler hours as Branc h needed for Wheezing or Shortness of Breath. albuterol 0 Yes [id number] 2{puff} Inhale 2 [facility] (PROAIR 9-03 Puffs ity of HFA) 90 00:00: every 6 [place] mcg/actuati 00 (six) Medical on inhaler hours as Branc h needed for Wheezing or Shortness of Breath. albuterol 0 Yes [id number] 2{puff} Inhale 2 [facility] (PROAIR 9-03 Puffs ity of HFA) 90 00:00: every 6 [place] mcg/actuati 00 (six) Medical on inhaler hours as Branc h needed for Wheezing or Shortness of Breath. albuterol Yes [id number] 2{puff} Inhale 2 [facility] (PROAIR 9-03 Puffs ity of HFA) 90 00:00: every 6 [place] mcg/actuati 00 (six) Medical on inhaler hours as Branc h needed for Wheezing or Shortness of Breath. albuterol 0 Yes [id number] 2{puff} Inhale 2 [facility] (PROAIR 9-03 Puffs ity of HFA) 90 00:00: every 6 [place] mcg/actuati 00 (six) Medical on inhaler hours as Branc h needed for Wheezing or Shortness of Breath. albuterol 0 Yes [id number] 2{puff} Inhale 2 [facility] (PROAIR 9-03 Puffs ity of HFA) 90 00:00: every 6 [place] mcg/actuati 00 (six) Medical on inhaler hours as Branc h needed for Wheezing or Shortness of Breath. albuterol 0 Yes [id number] 2{puff} Inhale 2 [facility] (PROAIR 9-03 Puffs ity of HFA) 90 00:00: every 6 [place] mcg/actuati 00 (six) Medical on inhaler hours as Branc h needed for Wheezing or Shortness of Breath. albuterol 0 Yes [id number] 2{puff} Inhale 2 [facility] (PROAIR 9-03 Puffs ity of HFA) 90 00:00: every 6 [place] mcg/actuati 00 (six) Medical on inhaler hours as Branc h needed for Wheezing or Shortness of Breath. albuterol 0 Yes [id number] 2{puff} Inhale 2 [facility] (PROAIR 9-03 Puffs ity of HFA) 90 00:00: every 6 [place] mcg/actuati 00 (six) Medical on inhaler hours as Branc h needed for Wheezing or Shortness of Breath. albuterol 0 Yes [id number] 2{puff} Inhale 2 [facility] (PROAIR 9-03 Puffs ity of HFA) 90 00:00: every 6 [place] mcg/actuati 00 (six) Medical on inhaler hours as Branc h needed for Wheezing or Shortness of Breath. albuterol 0 Yes [id number] 2{puff} Inhale 2 [facility] (PROAIR 9-03 Puffs ity of HFA) 90 00:00: every 6 [place] mcg/actuati 00 (six) Medical on inhaler hours as Branc h needed for Wheezing or Shortness of Breath. albuterol 0 Yes [id number] 2{puff} Inhale 2 [facility] (PROAIR 9-03 Puffs ity of HFA) 90 00:00: every 6 [place] mcg/actuati 00 (six) Medical on inhaler hours as Branc h needed for Wheezing or Shortness of Breath. albuterol 0 Yes [id number] 2{puff} Inhale 2 [facility] (PROAIR 9-03 Puffs ity of HFA) 90 00:00: every 6 [place] mcg/actuati 00 (six) Medical on inhaler hours as Branc h needed for Wheezing or Shortness of Breath. albuterol 0 Yes [id number] 2{puff} Inhale 2 [facility] (PROAIR 9-03 Puffs ity of HFA) 90 00:00: every 6 [place] mcg/actuati 00 (six) Medical on inhaler hours as Branc h needed for Wheezing or Shortness of Breath. albuterol 0 Yes [id number] 2{puff} Inhale 2 [facility] (PROAIR 9-03 Puffs ity of HFA) 90 00:00: every 6 [place] mcg/actuati 00 (six) Medical on inhaler hours as Branc h needed for Wheezing or Shortness of Breath. albuterol Yes [id number] 2{puff} Inhale 2 [facility] (PROAIR 9-03 Puffs ity of HFA) 90 00:00: every 6 [place] mcg/actuati 00 (six) Medical on inhaler hours as Branc h needed for Wheezing or Shortness of Breath. albuterol Yes [id number] 2{puff} Inhale 2 [facility] (PROAIR 9-03 Puffs ity of HFA) 90 00:00: every 6 [place] mcg/actuati 00 (six) Medical on inhaler hours as Branc h needed for Wheezing or Shortness of Breath. albuterol Yes [id number] 2{puff} Inhale 2 [facility] (PROAIR 9-03 Puffs ity of HFA) 90 00:00: every 6 [place] mcg/actuati 00 (six) Medical on inhaler hours as Branc h needed for Wheezing or Shortness of Breath. albuterol Yes [id number] 2{puff} Inhale 2 [facility] (PROAIR 9-03 Puffs ity of HFA) 90 00:00: every 6 [place] mcg/actuati 00 (six) Medical on inhaler hours as Branc h needed for Wheezing or Shortness of Breath. albuterol Yes [id number] 2{puff} Inhale 2 [facility] (PROAIR 9-03 Puffs ity of HFA) 90 00:00: every 6 [place] mcg/actuati 00 (six) Medical on inhaler hours as Branc h needed for Wheezing or Shortness of Breath. albuterol Yes [id number] 2{puff} Inhale 2 [facility] (PROAIR 9-03 Puffs ity of HFA) 90 00:00: every 6 [place] mcg/actuati 00 (six) Medical on inhaler hours as Branc h needed for Wheezing or Shortness of Breath. albuterol Yes [id number] 2{puff} Inhale 2 [facility] (PROAIR 9-03 Puffs ity of HFA) 90 00:00: every 6 [place] mcg/actuati 00 (six) Medical on inhaler hours as Branc h needed for Wheezing or Shortness of Breath. albuterol Yes [id number] 2{puff} Inhale 2 [facility] (PROAIR 9-03 Puffs ity of HFA) 90 00:00: every 6 [place] mcg/actuati 00 (six) Medical on inhaler hours as Branc h needed for Wheezing or Shortness of Breath. albuterol Yes [id number] 2{puff} Inhale 2 [facility] (PROAIR 9-03 Puffs ity of HFA) 90 00:00: every 6 [place] mcg/actuati 00 (six) Medical on inhaler hours as Branc h needed for Wheezing or Shortness of Breath. albuterol Yes [id number] 2{puff} Inhale 2 [facility] (PROAIR 9-03 Puffs ity of HFA) 90 00:00: every 6 [place] mcg/actuati 00 (six) Medical on inhaler hours as Branc h needed for Wheezing or Shortness of Breath. albuterol Yes [id number] 2{puff} Inhale 2 [facility] (PROAIR 9-03 Puffs ity of HFA) 90 00:00: every 6 [place] mcg/actuati 00 (six) Medical on inhaler hours as Branc h needed for Wheezing or Shortness of Breath. albuterol Yes [id number] 2{puff} Inhale 2 [facility] (PROAIR 9-03 Puffs ity of HFA) 90 00:00: every 6 [place] mcg/actuati 00 (six) Medical on inhaler hours as Branc h needed for Wheezing or Shortness of Breath. albuterol Yes [id number] 2{puff} Inhale 2 [facility] (PROAIR 9-03 Puffs ity of HFA) 90 00:00: every 6 [place] mcg/actuati 00 (six) Medical on inhaler hours as Branc h needed for Wheezing or Shortness of Breath. albuterol Yes [id number] 2{puff} Inhale 2 [facility] (PROAIR 9-03 Puffs ity of HFA) 90 00:00: every 6 [place] mcg/actuati 00 (six) Medical on inhaler hours as Branc h needed for Wheezing or Shortness of Breath. albuterol Yes [id number] 2{puff} Inhale 2 [facility] (PROAIR 9-03 Puffs ity of HFA) 90 00:00: every 6 [place] mcg/actuati 00 (six) Medical on inhaler hours as Branc h needed for Wheezing or Shortness of Breath. albuterol Yes [id number] 2{puff} Inhale 2 [facility] (PROAIR 9-03 Puffs ity of HFA) 90 00:00: every 6 [place] mcg/actuati 00 (six) Medical on inhaler hours as Branc h needed for Wheezing or Shortness of Breath. albuterol Yes [id number] 2{puff} Inhale 2 [facility] (PROAIR 9-03 Puffs ity of HFA) 90 00:00: every 6 [place] mcg/actuati 00 (six) Medical on inhaler hours as Branc h needed for Wheezing or Shortness of Breath. albuterol Yes [id number] 2{puff} Inhale 2 [facility] (PROAIR 9-03 Puffs ity of HFA) 90 00:00: every 6 [place] mcg/actuati 00 (six) Medical on inhaler hours as Branc h needed for Wheezing or Shortness of Breath. albuterol Yes [id number] 2{puff} Inhale 2 [facility] (PROAIR 9-03 Puffs ity of HFA) 90 00:00: every 6 [place] mcg/actuati 00 (six) Medical on inhaler hours as Branc h needed for Wheezing or Shortness of Breath. albuterol Yes [id number] 2{puff} Inhale 2 [facility] (PROAIR 9-03 Puffs ity of HFA) 90 00:00: every 6 [place] mcg/actuati 00 (six) Medical on inhaler hours as Branc h needed for Wheezing or Shortness of Breath. albuterol Yes [id number] 2{puff} Inhale 2 [facility] (PROAIR 9-03 Puffs ity of HFA) 90 00:00: every 6 [place] mcg/actuati 00 (six) Medical on inhaler hours as Branc h needed for Wheezing or Shortness of Breath. albuterol Yes [id number] 2{puff} Inhale 2 [facility] (PROAIR 9-03 Puffs ity of HFA) 90 00:00: every 6 [place] mcg/actuati 00 (six) Medical on inhaler hours as Branc h needed for Wheezing or Shortness of Breath. albuterol 0 Yes [id number] 2{puff} Inhale 2 [facility] (PROAIR 9-03 Puffs ity of HFA) 90 00:00: every 6 [place] mcg/actuati 00 (six) Medical on inhaler hours as Branc h needed for Wheezing or Shortness of Breath. albuterol 0 Yes [id number] 2{puff} Inhale 2 [facility] (PROAIR 9-03 Puffs ity of HFA) 90 00:00: every 6 [place] mcg/actuati 00 (six) Medical on inhaler hours as Branc h needed for Wheezing or Shortness of Breath. albuterol 0 Yes [id number] 2{puff} Inhale 2 [facility] (PROAIR 9-03 Puffs ity of HFA) 90 00:00: every 6 [place] mcg/actuati 00 (six) Medical on inhaler hours as Branc h needed for Wheezing or Shortness of Breath. albuterol 0 Yes [id number] 2{puff} Inhale 2 [facility] (PROAIR 9-03 Puffs ity of HFA) 90 00:00: every 6 [place] mcg/actuati 00 (six) Medical on inhaler hours as Branc h needed for Wheezing or Shortness of Breath. albuterol 0 Yes [id number] 2{puff} Inhale 2 [facility] (PROAIR 9-03 Puffs ity of HFA) 90 00:00: every 6 [place] mcg/actuati 00 (six) Medical on inhaler hours as Branc h needed for Wheezing or Shortness of Breath. albuterol 0 Yes [id number] 2{puff} Inhale 2 [facility] (PROAIR 9-03 Puffs ity of HFA) 90 00:00: every 6 [place] mcg/actuati 00 (six) Medical on inhaler hours as Branc h needed for Wheezing or Shortness of Breath. albuterol 0 Yes [id number] 2{puff} Inhale 2 [facility] (PROAIR 9-03 Puffs ity of HFA) 90 00:00: every 6 [place] mcg/actuati 00 (six) Medical on inhaler hours as Branc h needed for Wheezing or Shortness of Breath. albuterol Yes [id number] 2{puff} Inhale 2 [facility] (PROAIR 9-03 Puffs ity of HFA) 90 00:00: every 6 [place] mcg/actuati 00 (six) Medical on inhaler hours as Branc h needed for Wheezing or Shortness of Breath. albuterol Yes [id number] 2{puff} Inhale 2 [facility] (PROAIR 9-03 Puffs ity of HFA) 90 00:00: every 6 [place] mcg/actuati 00 (six) Medical on inhaler hours as Branc h needed for Wheezing or Shortness of Breath. albuterol Yes [id number] 2{puff} Inhale 2 [facility] (PROAIR 9-03 Puffs ity of HFA) 90 00:00: every 6 [place] mcg/actuati 00 (six) Medical on inhaler hours as Branc h needed for Wheezing or Shortness of Breath. albuterol Yes [id number] 2{puff} Inhale 2 [facility] (PROAIR 9-03 Puffs ity of HFA) 90 00:00: every 6 [place] mcg/actuati 00 (six) Medical on inhaler hours as Branc h needed for Wheezing or Shortness of Breath. albuterol Yes [id number] 2{puff} Inhale 2 [facility] (PROAIR 9-03 Puffs ity of HFA) 90 00:00: every 6 [place] mcg/actuati 00 (six) Medical on inhaler hours as Branc h needed for Wheezing or Shortness of Breath. albuterol Yes [id number] 2{puff} Inhale 2 [facility] (PROAIR 9-03 Puffs ity of HFA) 90 00:00: every 6 [place] mcg/actuati 00 (six) Medical on inhaler hours as Branc h needed for Wheezing or Shortness of Breath. albuterol Yes [id number] 2{puff} Inhale 2 [facility] (PROAIR 9-03 Puffs ity of HFA) 90 00:00: every 6 [place] mcg/actuati 00 (six) Medical on inhaler hours as Branc h needed for Wheezing or Shortness of Breath. albuterol Yes [id number] 2{puff} Inhale 2 [facility] (PROAIR 9-03 Puffs ity of HFA) 90 00:00: every 6 [place] mcg/actuati 00 (six) Medical on inhaler hours as Branc h needed for Wheezing or Shortness of Breath. albuterol Yes [id number] 2{puff} Inhale 2 [facility] (PROAIR 9-03 Puffs ity of HFA) 90 00:00: every 6 [place] mcg/actuati 00 (six) Medical on inhaler hours as Branc h needed for Wheezing or Shortness of Breath. albuterol Yes [id number] 2{puff} Inhale 2 [facility] (PROAIR 9-03 Puffs ity of HFA) 90 00:00: every 6 [place] mcg/actuati 00 (six) Medical on inhaler hours as Branc h needed for Wheezing or Shortness of Breath. albuterol Yes [id number] 2{puff} Inhale 2 [facility] (PROAIR 9-03 Puffs ity of HFA) 90 00:00: every 6 [place] mcg/actuati 00 (six) Medical on inhaler hours as Branc h needed for Wheezing or Shortness of Breath. albuterol Yes [id number] 2{puff} Inhale 2 [facility] (PROAIR 9-03 Puffs ity of HFA) 90 00:00: every 6 [place] mcg/actuati 00 (six) Medical on inhaler hours as Branc h needed for Wheezing or Shortness of Breath. albuterol Yes [id number] 2{puff} Inhale 2 [facility] (PROAIR 9-03 Puffs ity of HFA) 90 00:00: every 6 [place] mcg/actuati 00 (six) Medical on inhaler hours as Branc h needed for Wheezing or Shortness of Breath. albuterol Yes [id number] 2{puff} Inhale 2 [facility] (PROAIR 9-03 Puffs ity of HFA) 90 00:00: every 6 [place] mcg/actuati 00 (six) Medical on inhaler hours as Branc h needed for Wheezing or Shortness of Breath. albuterol Yes [id number] 2{puff} Inhale 2 [facility] (PROAIR 9-03 Puffs ity of HFA) 90 00:00: every 6 [place] mcg/actuati 00 (six) Medical on inhaler hours as Branc h needed for Wheezing or Shortness of Breath. albuterol Yes [id number] 2{puff} Inhale 2 [facility] (PROAIR 9-03 Puffs ity of HFA) 90 00:00: every 6 [place] mcg/actuati 00 (six) Medical on inhaler hours as Branc h needed for Wheezing or Shortness of Breath. albuterol Yes [id number] 2{puff} Inhale 2 [facility] (PROAIR 9-03 Puffs ity of HFA) 90 00:00: every 6 [place] mcg/actuati 00 (six) Medical on inhaler hours as Branc h needed for Wheezing or Shortness of Breath. albuterol Yes [id number] 2{puff} Inhale 2 [facility] (PROAIR 9-03 Puffs ity of HFA) 90 00:00: every 6 [place] mcg/actuati 00 (six) Medical on inhaler hours as Branc h needed for Wheezing or Shortness of Breath. albuterol Yes [id number] 2{puff} Inhale 2 [facility] (PROAIR 9-03 Puffs ity of HFA) 90 00:00: every 6 [place] mcg/actuati 00 (six) Medical on inhaler hours as Branc h needed for Wheezing or Shortness of Breath. albuterol Yes [id number] 2{puff} Inhale 2 [facility] (PROAIR 9-03 Puffs ity of HFA) 90 00:00: every 6 [place] mcg/actuati 00 (six) Medical on inhaler hours as Branc h needed for Wheezing or Shortness of Breath. albuterol Yes [id number] 2{puff} Inhale 2 [facility] (PROAIR 9-03 Puffs ity of HFA) 90 00:00: every 6 [place] mcg/actuati 00 (six) Medical on inhaler hours as Branc h needed for Wheezing or Shortness of Breath. albuterol Yes [id number] 2{puff} Inhale 2 [facility] (PROAIR 9-03 Puffs ity of HFA) 90 00:00: every 6 [place] mcg/actuati 00 (six) Medical on inhaler hours as Branc h needed for Wheezing or Shortness of Breath. albuterol 0 Yes [id number] 2{puff} Inhale 2 [facility] (PROAIR 9-03 Puffs ity of HFA) 90 00:00: every 6 [place] mcg/actuati 00 (six) Medical on inhaler hours as Branc h needed for Wheezing or Shortness of Breath. albuterol 0 Yes [id number] 2{puff} Inhale 2 [facility] (PROAIR 9-03 Puffs ity of HFA) 90 00:00: every 6 [place] mcg/actuati 00 (six) Medical on inhaler hours as Branc h needed for Wheezing or Shortness of Breath. albuterol Yes [id number] 2{puff} Inhale 2 [facility] (PROAIR 9-03 Puffs ity of HFA) 90 00:00: every 6 [place] mcg/actuati 00 (six) Medical on inhaler hours as Branc h needed for Wheezing or Shortness of Breath. albuterol Yes [id number] 2{puff} Inhale 2 [facility] (PROAIR 9-03 Puffs ity of HFA) 90 00:00: every 6 [place] mcg/actuati 00 (six) Medical on inhaler hours as Branc h needed for Wheezing or Shortness of Breath. albuterol 0 Yes [id number] 2{puff} Inhale 2 [facility] (PROAIR 9-03 Puffs ity of HFA) 90 00:00: every 6 [place] mcg/actuati 00 (six) Medical on inhaler hours as Branc h needed for Wheezing or Shortness of Breath. albuterol 0 Yes [id number] 2{puff} Inhale 2 [facility] (PROAIR 9-03 Puffs ity of HFA) 90 00:00: every 6 [place] mcg/actuati 00 (six) Medical on inhaler hours as Branc h needed for Wheezing or Shortness of Breath. albuterol 0 Yes [id number] 2{puff} Inhale 2 [facility] (PROAIR 9-03 Puffs ity of HFA) 90 00:00: every 6 [place] mcg/actuati 00 (six) Medical on inhaler hours as Branc h needed for Wheezing or Shortness of Breath. albuterol Yes [id number] 2{puff} Inhale 2 [facility] (PROAIR 9-03 Puffs ity of HFA) 90 00:00: every 6 [place] mcg/actuati 00 (six) Medical on inhaler hours as Branc h needed for Wheezing or Shortness of Breath. albuterol Yes [id number] 2{puff} Inhale 2 [facility] (PROAIR 9-03 Puffs ity of HFA) 90 00:00: every 6 [place] mcg/actuati 00 (six) Medical on inhaler hours as Branc h needed for Wheezing or Shortness of Breath. albuterol Yes [id number] 2{puff} Inhale 2 [facility] (PROAIR 9-03 Puffs ity of HFA) 90 00:00: every 6 [place] mcg/actuati 00 (six) Medical on inhaler hours as Branc h needed for Wheezing or Shortness of Breath. albuterol Yes [id number] 2{puff} Inhale 2 [facility] (PROAIR 9-03 Puffs ity of HFA) 90 00:00: every 6 [place] mcg/actuati 00 (six) Medical on inhaler hours as Branc h needed for Wheezing or Shortness of Breath. albuterol Yes [id number] 2{puff} Inhale 2 [facility] (PROAIR 9-03 Puffs ity of HFA) 90 00:00: every 6 [place] mcg/actuati 00 (six) Medical on inhaler hours as Branc h needed for Wheezing or Shortness of Breath. albuterol Yes [id number] 2{puff} Inhale 2 [facility] (PROAIR 9-03 Puffs ity of HFA) 90 00:00: every 6 [place] mcg/actuati 00 (six) Medical on inhaler hours as Branc h needed for Wheezing or Shortness of Breath. albuterol 0 Yes [id number] 2{puff} Inhale 2 [facility] (PROAIR 9-03 Puffs ity of HFA) 90 00:00: every 6 [place] mcg/actuati 00 (six) Medical on inhaler hours as Branc h needed for Wheezing or Shortness of Breath. albuterol Yes [id number] 2{puff} Inhale 2 [facility] (PROAIR 9-03 Puffs ity of HFA) 90 00:00: every 6 [place] mcg/actuati 00 (six) Medical on inhaler hours as Branc h needed for Wheezing or Shortness of Breath. albuterol Yes [id number] 2{puff} Inhale 2 [facility] (PROAIR 9-03 Puffs ity of HFA) 90 00:00: every 6 [place] mcg/actuati 00 (six) Medical on inhaler hours as Branc h needed for Wheezing or Shortness of Breath. albuterol Yes [id number] 2{puff} Inhale 2 [facility] (PROAIR 9-03 Puffs ity of HFA) 90 00:00: every 6 [place] mcg/actuati 00 (six) Medical on inhaler hours as Branc h needed for Wheezing or Shortness of Breath. albuterol Yes [id number] 2{puff} Inhale 2 [facility] (PROAIR 9-03 Puffs ity of HFA) 90 00:00: every 6 [place] mcg/actuati 00 (six) Medical on inhaler hours as Branc h needed for Wheezing or Shortness of Breath. albuterol Yes [id number] 2{puff} Inhale 2 [facility] (PROAIR 9-03 Puffs ity of HFA) 90 00:00: every 6 [place] mcg/actuati 00 (six) Medical on inhaler hours as Branc h needed for Wheezing or Shortness of Breath. albuterol Yes [id number] 2{puff} Inhale 2 [facility] (PROAIR 9-03 Puffs ity of HFA) 90 00:00: every 6 [place] mcg/actuati 00 (six) Medical on inhaler hours as Branc h needed for Wheezing or Shortness of Breath. albuterol Yes [id number] 2{puff} Inhale 2 [facility] (PROAIR 9-03 Puffs ity of HFA) 90 00:00: every 6 [place] mcg/actuati 00 (six) Medical on inhaler hours as Branc h needed for Wheezing or Shortness of Breath. albuterol Yes [id number] 2{puff} Inhale 2 [facility] (PROAIR 9-03 Puffs ity of HFA) 90 00:00: every 6 [place] mcg/actuati 00 (six) Medical on inhaler hours as Branc h needed for Wheezing or Shortness of Breath. albuterol Yes [id number] 2{puff} Inhale 2 [facility] (PROAIR 9-03 Puffs ity of HFA) 90 00:00: every 6 [place] mcg/actuati 00 (six) Medical on inhaler hours as Branc h needed for Wheezing or Shortness of Breath. albuterol Yes [id number] 2{puff} Inhale 2 [facility] (PROAIR 9-03 Puffs ity of HFA) 90 00:00: every 6 [place] mcg/actuati 00 (six) Medical on inhaler hours as Branc h needed for Wheezing or Shortness of Breath. albuterol Yes [id number] 2{puff} Inhale 2 [facility] (PROAIR 9-03 Puffs ity of HFA) 90 00:00: every 6 [place] mcg/actuati 00 (six) Medical on inhaler hours as Branc h needed for Wheezing or Shortness of Breath. albuterol Yes [id number] 2{puff} Inhale 2 [facility] (PROAIR 9-03 Puffs ity of HFA) 90 00:00: every 6 [place] mcg/actuati 00 (six) Medical on inhaler hours as Branc h needed for Wheezing or Shortness of Breath. albuterol Yes [id number] 2{puff} Inhale 2 [facility] (PROAIR 9-03 Puffs ity of HFA) 90 00:00: every 6 [place] mcg/actuati 00 (six) Medical on inhaler hours as Branc h needed for Wheezing or Shortness of Breath. albuterol Yes [id number] 2{puff} Inhale 2 [facility] (PROAIR 9-03 Puffs ity of HFA) 90 00:00: every 6 [place] mcg/actuati 00 (six) Medical on inhaler hours as Branc h needed for Wheezing or Shortness of Breath. albuterol Yes [id number] 2{puff} Inhale 2 [facility] (PROAIR 9-03 Puffs ity of HFA) 90 00:00: every 6 [place] mcg/actuati 00 (six) Medical on inhaler hours as Branc h needed for Wheezing or Shortness of Breath. albuterol 0 Yes [id number] 2{puff} Inhale 2 [facility] (PROAIR 9-03 Puffs ity of HFA) 90 00:00: every 6 [place] mcg/actuati 00 (six) Medical on inhaler hours as Branc h needed for Wheezing or Shortness of Breath. albuterol 0 Yes [id number] 2{puff} Inhale 2 [facility] (PROAIR 9-03 Puffs ity of HFA) 90 00:00: every 6 [place] mcg/actuati 00 (six) Medical on inhaler hours as Branc h needed for Wheezing or Shortness of Breath. albuterol Yes [id number] 2{puff} Inhale 2 [facility] (PROAIR 9-03 Puffs ity of HFA) 90 00:00: every 6 [place] mcg/actuati 00 (six) Medical on inhaler hours as Branc h needed for Wheezing or Shortness of Breath. albuterol Yes [id number] 2{puff} Inhale 2 [facility] (PROAIR 9-03 Puffs ity of HFA) 90 00:00: every 6 [place] mcg/actuati 00 (six) Medical on inhaler hours as Branc h needed for Wheezing or Shortness of Breath. albuterol 0 Yes [id number] 2{puff} Inhale 2 [facility] (PROAIR 9-03 Puffs ity of HFA) 90 00:00: every 6 [place] mcg/actuati 00 (six) Medical on inhaler hours as Branc h needed for Wheezing or Shortness of Breath. albuterol 0 Yes [id number] 2{puff} Inhale 2 [facility] (PROAIR 9-03 Puffs ity of HFA) 90 00:00: every 6 [place] mcg/actuati 00 (six) Medical on inhaler hours as Branc h needed for Wheezing or Shortness of Breath. albuterol 0 Yes [id number] 2{puff} Inhale 2 [facility] (PROAIR 9-03 Puffs ity of HFA) 90 00:00: every 6 [place] mcg/actuati 00 (six) Medical on inhaler hours as Branc h needed for Wheezing or Shortness of Breath. albuterol Yes [id number] 2{puff} Inhale 2 [facility] (PROAIR 9-03 Puffs ity of HFA) 90 00:00: every 6 [place] mcg/actuati 00 (six) Medical on inhaler hours as Branc h needed for Wheezing or Shortness of Breath. albuterol Yes [id number] 2{puff} Inhale 2 [facility] (PROAIR 9-03 Puffs ity of HFA) 90 00:00: every 6 [place] mcg/actuati 00 (six) Medical on inhaler hours as Branc h needed for Wheezing or Shortness of Breath. albuterol Yes [id number] 2{puff} Inhale 2 [facility] (PROAIR 9-03 Puffs ity of HFA) 90 00:00: every 6 [place] mcg/actuati 00 (six) Medical on inhaler hours as Branc h needed for Wheezing or Shortness of Breath. albuterol Yes [id number] 2{puff} Inhale 2 [facility] (PROAIR 9-03 Puffs ity of HFA) 90 00:00: every 6 [place] mcg/actuati 00 (six) Medical on inhaler hours as Branc h needed for Wheezing or Shortness of Breath. albuterol Yes [id number] 2{puff} Inhale 2 [facility] (PROAIR 9-03 Puffs ity of HFA) 90 00:00: every 6 [place] mcg/actuati 00 (six) Medical on inhaler hours as Branc h needed for Wheezing or Shortness of Breath. albuterol Yes [id number] 2{puff} Inhale 2 [facility] (PROAIR 9-03 Puffs ity of HFA) 90 00:00: every 6 [place] mcg/actuati 00 (six) Medical on inhaler hours as Branc h needed for Wheezing or Shortness of Breath. albuterol Yes [id number] 2{puff} Inhale 2 [facility] (PROAIR 9-03 Puffs ity of HFA) 90 00:00: every 6 [place] mcg/actuati 00 (six) Medical on inhaler hours as Branc h needed for Wheezing or Shortness of Breath. albuterol Yes [id number] 2{puff} Inhale 2 [facility] (PROAIR 9-03 Puffs ity of HFA) 90 00:00: every 6 [place] mcg/actuati 00 (six) Medical on inhaler hours as Branc h needed for Wheezing or Shortness of Breath. albuterol Yes [id number] 2{puff} Inhale 2 [facility] (PROAIR 9-03 Puffs ity of HFA) 90 00:00: every 6 [place] mcg/actuati 00 (six) Medical on inhaler hours as Branc h needed for Wheezing or Shortness of Breath. albuterol Yes [id number] 2{puff} Inhale 2 [facility] (PROAIR 9-03 Puffs ity of HFA) 90 00:00: every 6 [place] mcg/actuati 00 (six) Medical on inhaler hours as Branc h needed for Wheezing or Shortness of Breath. albuterol Yes [id number] 2{puff} Inhale 2 [facility] (PROAIR 9-03 Puffs ity of HFA) 90 00:00: every 6 [place] mcg/actuati 00 (six) Medical on inhaler hours as Branc h needed for Wheezing or Shortness of Breath. albuterol Yes [id number] 2{puff} Inhale 2 [facility] (PROAIR 9-03 Puffs ity of HFA) 90 00:00: every 6 [place] mcg/actuati 00 (six) Medical on inhaler hours as Branc h needed for Wheezing or Shortness of Breath. albuterol Yes [id number] 2{puff} Inhale 2 [facility] (PROAIR 9-03 Puffs ity of HFA) 90 00:00: every 6 [place] mcg/actuati 00 (six) Medical on inhaler hours as Branc h needed for Wheezing or Shortness of Breath. albuterol Yes [id number] 2{puff} Inhale 2 [facility] (PROAIR 9-03 Puffs ity of HFA) 90 00:00: every 6 [place] mcg/actuati 00 (six) Medical on inhaler hours as Branc h needed for Wheezing or Shortness of Breath. albuterol Yes [id number] 2{puff} Inhale 2 [facility] (PROAIR 9-03 Puffs ity of HFA) 90 00:00: every 6 [place] mcg/actuati 00 (six) Medical on inhaler hours as Branc h needed for Wheezing or Shortness of Breath. albuterol Yes [id number] 2{puff} Inhale 2 [facility] (PROAIR 9-03 Puffs ity of HFA) 90 00:00: every 6 [place] mcg/actuati 00 (six) Medical on inhaler hours as Branc h needed for Wheezing or Shortness of Breath. albuterol Yes [id number] 2{puff} Inhale 2 [facility] (PROAIR 9-03 Puffs ity of HFA) 90 00:00: every 6 [place] mcg/actuati 00 (six) Medical on inhaler hours as Branc h needed for Wheezing or Shortness of Breath. albuterol Yes [id number] 2{puff} Inhale 2 [facility] (PROAIR 9-03 Puffs ity of HFA) 90 00:00: every 6 [place] mcg/actuati 00 (six) Medical on inhaler hours as Branc h needed for Wheezing or Shortness of Breath. amLODIPine 2021- No [id number] 2.5mg Take 1 [facility] 2.5 mg 07-20 tablet by ity of tablet 00:00: 00:00 mouth [place] 00 :00 daily. [facility] amLODIPine 2021- No [id number] 2.5mg Take 1 [facility] 2.5 mg 07-20 tablet by ity of tablet 00:00: 00:00 mouth [place] 00 :00 daily. [facility] amLODIPine 2021- No [id number] 2.5mg Take 1 [facility] 2.5 mg 07-20 tablet by ity of tablet 00:00: 00:00 mouth [place] 00 :00 daily. [facility] hydroCHLORO 2021- No [id number] 25mg Take 1 [facility] thiazide 25 07-2015 tablet by it y of mg tablet 00:00: 00:00 mouth [place] 00 :00 daily. [facility] hydroCHLORO 2021- No [id number] 25mg Take 1 [facility] thiazide 25 6-07 07-15 tablet by it y of mg tablet 00:00: 00:00 mouth [place] 00 :00 daily. [facility] aspirin 81 2020- Yes [id number] 81mg Take 1 [facility] mg chewable 0-01 [id number] tablet by i ty of tablet 00:00: mouth [place] 00 daily. [facility] aspirin 81 2020- Yes [id number] 81mg Take 1 [facility] mg chewable 0-01 [id number] tablet by i ty of tablet 00:00: mouth [place] 00 daily. [facility] aspirin 81 2020- Yes [id number] 81mg Take 1 [facility] mg chewable 0-01 [id number] tablet by i ty of tablet 00:00: mouth [place] 00 daily. [facility] aspirin 81 2020- Yes [id number] 81mg Take 1 [facility] mg chewable 0-01 [id number] tablet by i ty of tablet 00:00: mouth [place] 00 daily. [facility] aspirin 81 2020- Yes [id number] 81mg Take 1 [facility] mg chewable 0-01 [id number] tablet by i ty of tablet 00:00: mouth [place] 00 daily. [facility] aspirin 81 2020- Yes [id number] 81mg Take 1 [facility] mg chewable 0-01 [id number] tablet by i ty of tablet 00:00: mouth [place] 00 daily. [facility] aspirin 81 2020- Yes [id number] 81mg Take 1 [facility] mg chewable 0-01 [id number] tablet by i ty of tablet 00:00: mouth [place] 00 daily. [facility] aspirin 81 2020- Yes [id number] 81mg Take 1 [facility] mg chewable 0-01 [id number] tablet by i ty of tablet 00:00: mouth [place] 00 daily. [facility] aspirin 81 2020- Yes [id number] 81mg Take 1 [facility] mg chewable 0-01 [id number] tablet by i ty of tablet 00:00: mouth [place] 00 daily. [facility] aspirin 81 2020- Yes [id number] 81mg Take 1 [facility] mg chewable 0-01 [id number] tablet by i ty of tablet 00:00: mouth [place] 00 daily. [facility] aspirin 81 2020- Yes [id number] 81mg Take 1 [facility] mg chewable 0-01 [id number] tablet by i ty of tablet 00:00: mouth [place] 00 daily. [facility] aspirin 81 2020- Yes [id number] 81mg Take 1 [facility] mg chewable 0-01 [id number] tablet by i ty of tablet 00:00: mouth [place] 00 daily. [facility] aspirin 81 2020- Yes [id number] 81mg Take 1 [facility] mg chewable 0-01 [id number] tablet by i ty of tablet 00:00: mouth [place] 00 daily. [facility] aspirin 81 2020- Yes [id number] 81mg Take 1 [facility] mg chewable 0-01 [id number] tablet by i ty of tablet 00:00: mouth [place] 00 daily. [facility] aspirin 81 2020- Yes [id number] 81mg Take 1 [facility] mg chewable 0-01 [id number] tablet by i ty of tablet 00:00: mouth [place] 00 daily. [facility] aspirin 81 2020- Yes [id number] 81mg Take 1 [facility] mg chewable 0-01 [id number] tablet by i ty of tablet 00:00: mouth [place] 00 daily. [facility] aspirin 81 2020- Yes [id number] 81mg Take 1 [facility] mg chewable 0-01 [id number] tablet by i ty of tablet 00:00: mouth [place] 00 daily. [facility] aspirin 81 2020- Yes [id number] 81mg Take 1 [facility] mg chewable 0-01 [id number] tablet by i ty of tablet 00:00: mouth [place] 00 daily. [facility] aspirin 81 2020- Yes [id number] 81mg Take 1 [facility] mg chewable 0-01 [id number] tablet by i ty of tablet 00:00: mouth [place] 00 daily. [facility] aspirin 81 2020- Yes [id number] 81mg Take 1 [facility] mg chewable 0-01 [id number] tablet by i ty of tablet 00:00: mouth [place] 00 daily. [facility] aspirin 81 2020- Yes [id number] 81mg Take 1 [facility] mg chewable 0-01 [id number] tablet by i ty of tablet 00:00: mouth [place] 00 daily. [facility] aspirin 81 2020- Yes [id number] 81mg Take 1 [facility] mg chewable 0-01 [id number] tablet by i ty of tablet 00:00: mouth [place] 00 daily. [facility] aspirin 81 2020- Yes [id number] 81mg Take 1 [facility] mg chewable 0-01 [id number] tablet by i ty of tablet 00:00: mouth [place] 00 daily. [facility] aspirin 81 2020- Yes [id number] 81mg Take 1 [facility] mg chewable 0-01 [id number] tablet by i ty of tablet 00:00: mouth [place] 00 daily. [facility] aspirin 81 2020- Yes [id number] 81mg Take 1 [facility] mg chewable 0-01 [id number] tablet by i ty of tablet 00:00: mouth [place] 00 daily. [facility] aspirin 81 2020- Yes [id number] 81mg Take 1 [facility] mg chewable 0-01 [id number] tablet by i ty of tablet 00:00: mouth [place] 00 daily. [facility] aspirin 81 2020- Yes [id number] 81mg Take 1 [facility] mg chewable 0-01 [id number] tablet by i ty of tablet 00:00: mouth [place] 00 daily. [facility] aspirin 81 2020- Yes [id number] 81mg Take 1 [facility] mg chewable 0-01 [id number] tablet by i ty of tablet 00:00: mouth [place] 00 daily. [facility] aspirin 81 2020- Yes [id number] 81mg Take 1 [facility] mg chewable 0-01 [id number] tablet by i ty of tablet 00:00: mouth [place] 00 daily. [facility] aspirin 81 2020- Yes [id number] 81mg Take 1 [facility] mg chewable 0-01 [id number] tablet by i ty of tablet 00:00: mouth [place] 00 daily. [facility] aspirin 81 2020- Yes [id number] 81mg Take 1 [facility] mg chewable 0-01 [id number] tablet by i ty of tablet 00:00: mouth [place] 00 daily. [facility] aspirin 81 2020- Yes [id number] 81mg Take 1 [facility] mg chewable 0-01 [id number] tablet by i ty of tablet 00:00: mouth [place] 00 daily. [facility] aspirin 81 2020- Yes [id number] 81mg Take 1 [facility] mg chewable 0-01 [id number] tablet by i ty of tablet 00:00: mouth [place] 00 daily. [facility] aspirin 81 2020- Yes [id number] 81mg Take 1 [facility] mg chewable 0-01 [id number] tablet by i ty of tablet 00:00: mouth [place] 00 daily. [facility] aspirin 81 2020- Yes [id number] 81mg Take 1 [facility] mg chewable 0-01 [id number] tablet by i ty of tablet 00:00: mouth [place] 00 daily. [facility] aspirin 81 2020- Yes [id number] 81mg Take 1 [facility] mg chewable 0-01 [id number] tablet by i ty of tablet 00:00: mouth [place] 00 daily. [facility] aspirin 81 2020- Yes [id number] 81mg Take 1 [facility] mg chewable 0-01 [id number] tablet by i ty of tablet 00:00: mouth [place] 00 daily. [facility] aspirin 81 2020- Yes [id number] 81mg Take 1 [facility] mg chewable 0-01 [id number] tablet by i ty of tablet 00:00: mouth [place] 00 daily. [facility] aspirin 81 2020- Yes [id number] 81mg Take 1 [facility] mg chewable 0-01 [id number] tablet by i ty of tablet 00:00: mouth [place] 00 daily. [facility] aspirin 81 2020- Yes [id number] 81mg Take 1 [facility] mg chewable 0-01 [id number] tablet by i ty of tablet 00:00: mouth [place] 00 daily. [facility] aspirin 81 2020- Yes [id number] 81mg Take 1 [facility] mg chewable 0-01 [id number] tablet by i ty of tablet 00:00: mouth [place] 00 daily. [facility] aspirin 81 2020- Yes [id number] 81mg Take 1 [facility] mg chewable 0-01 [id number] tablet by i ty of tablet 00:00: mouth [place] 00 daily. [facility] aspirin 81 2020- Yes [id number] 81mg Take 1 [facility] mg chewable 0-01 [id number] tablet by i ty of tablet 00:00: mouth [place] 00 daily. [facility] aspirin 81 2020- Yes [id number] 81mg Take 1 [facility] mg chewable 0-01 [id number] tablet by i ty of tablet 00:00: mouth [place] 00 daily. [facility] aspirin 81 2020- Yes [id number] 81mg Take 1 [facility] mg chewable 0-01 [id number] tablet by i ty of tablet 00:00: mouth [place] 00 daily. [facility] aspirin 81 2020- Yes [id number] 81mg Take 1 [facility] mg chewable 0-01 [id number] tablet by i ty of tablet 00:00: mouth [place] 00 daily. [facility] aspirin 81 2020- Yes [id number] 81mg Take 1 [facility] mg chewable 0-01 [id number] tablet by i ty of tablet 00:00: mouth [place] 00 daily. [facility] aspirin 81 2020- Yes [id number] 81mg Take 1 [facility] mg chewable 0-01 [id number] tablet by i ty of tablet 00:00: mouth [place] 00 daily. [facility] aspirin 81 2020- Yes [id number] 81mg Take 1 [facility] mg chewable 0-01 [id number] tablet by i ty of tablet 00:00: mouth [place] 00 daily. [facility] aspirin 81 2020- Yes [id number] 81mg Take 1 [facility] mg chewable 0-01 [id number] tablet by i ty of tablet 00:00: mouth [place] 00 daily. [facility] aspirin 81 2020- Yes [id number] 81mg Take 1 [facility] mg chewable 0-01 [id number] tablet by i ty of tablet 00:00: mouth [place] 00 daily. [facility] aspirin 81 2020- Yes [id number] 81mg Take 1 [facility] mg chewable 0-01 [id number] tablet by i ty of tablet 00:00: mouth [place] 00 daily. [facility] aspirin 81 2020- Yes [id number] 81mg Take 1 [facility] mg chewable 0-01 [id number] tablet by i ty of tablet 00:00: mouth [place] 00 daily. [facility] aspirin 81 2020- Yes [id number] 81mg Take 1 [facility] mg chewable 0-01 [id number] tablet by i ty of tablet 00:00: mouth [place] 00 daily. [facility] aspirin 81 2020- Yes [id number] 81mg Take 1 [facility] mg chewable 0-01 [id number] tablet by i ty of tablet 00:00: mouth [place] 00 daily. [facility] aspirin 81 2020- Yes [id number] 81mg Take 1 [facility] mg chewable 0-01 [id number] tablet by i ty of tablet 00:00: mouth [place] 00 daily. [facility] aspirin 81 2020- Yes [id number] 81mg Take 1 [facility] mg chewable 0-01 [id number] tablet by i ty of tablet 00:00: mouth [place] 00 daily. [facility] aspirin 81 2020- Yes [id number] 81mg Take 1 [facility] mg chewable 0-01 [id number] tablet by i ty of tablet 00:00: mouth [place] 00 daily. [facility] aspirin 81 2020- Yes [id number] 81mg Take 1 [facility] mg chewable 0-01 [id number] tablet by i ty of tablet 00:00: mouth [place] 00 daily. [facility] aspirin 81 2020- Yes [id number] 81mg Take 1 [facility] mg chewable 0-01 [id number] tablet by i ty of tablet 00:00: mouth [place] 00 daily. [facility] aspirin 81 2020- Yes [id number] 81mg Take 1 [facility] mg chewable 0-01 [id number] tablet by i ty of tablet 00:00: mouth [place] 00 daily. [facility] aspirin 81 2020- Yes [id number] 81mg Take 1 [facility] mg chewable 0-01 [id number] tablet by i ty of tablet 00:00: mouth [place] 00 daily. [facility] aspirin 81 2020- Yes [id number] 81mg Take 1 [facility] mg chewable 0-01 [id number] tablet by i ty of tablet 00:00: mouth [place] 00 daily. [facility] aspirin 81 2020- Yes [id number] 81mg Take 1 [facility] mg chewable 0-01 [id number] tablet by i ty of tablet 00:00: mouth [place] 00 daily. [facility] aspirin 81 2020- Yes [id number] 81mg Take 1 [facility] mg chewable 0-01 [id number] tablet by i ty of tablet 00:00: mouth [place] 00 daily. [facility] aspirin 81 2020- Yes [id number] 81mg Take 1 [facility] mg chewable 0-01 [id number] tablet by i ty of tablet 00:00: mouth [place] 00 daily. [facility] aspirin 81 2020- Yes [id number] 81mg Take 1 [facility] mg chewable 0-01 [id number] tablet by i ty of tablet 00:00: mouth [place] 00 daily. [facility] aspirin 81 2020- Yes [id number] 81mg Take 1 [facility] mg chewable 0-01 [id number] tablet by i ty of tablet 00:00: mouth [place] 00 daily. [facility] aspirin 81 2020- Yes [id number] 81mg Take 1 [facility] mg chewable 0-01 [id number] tablet by i ty of tablet 00:00: mouth [place] 00 daily. [facility] aspirin 81 2020- Yes [id number] 81mg Take 1 [facility] mg chewable 0-01 [id number] tablet by i ty of tablet 00:00: mouth [place] 00 daily. [facility] aspirin 81 2020- Yes [id number] 81mg Take 1 [facility] mg chewable 0-01 [id number] tablet by i ty of tablet 00:00: mouth [place] 00 daily. [facility] aspirin 81 2020- Yes [id number] 81mg Take 1 [facility] mg chewable 0-01 [id number] tablet by i ty of tablet 00:00: mouth [place] 00 daily. [facility] aspirin 81 2020- Yes [id number] 81mg Take 1 [facility] mg chewable 0-01 [id number] tablet by i ty of tablet 00:00: mouth [place] 00 daily. [facility] aspirin 81 2020- Yes [id number] 81mg Take 1 [facility] mg chewable 0-01 [id number] tablet by i ty of tablet 00:00: mouth [place] 00 daily. [facility] aspirin 81 2020- Yes [id number] 81mg Take 1 [facility] mg chewable 0-01 [id number] tablet by i ty of tablet 00:00: mouth [place] 00 daily. [facility] aspirin 81 2020- Yes [id number] 81mg Take 1 [facility] mg chewable 0-01 [id number] tablet by i ty of tablet 00:00: mouth [place] 00 daily. [facility] aspirin 81 2020- Yes [id number] 81mg Take 1 [facility] mg chewable 0-01 [id number] tablet by i ty of tablet 00:00: mouth [place] 00 daily. [facility] aspirin 81 2020- Yes [id number] 81mg Take 1 [facility] mg chewable 0-01 [id number] tablet by i ty of tablet 00:00: mouth [place] 00 daily. [facility] aspirin 81 2020- Yes [id number] 81mg Take 1 [facility] mg chewable 0-01 [id number] tablet by i ty of tablet 00:00: mouth [place] 00 daily. [facility] aspirin 81 2020- Yes [id number] 81mg Take 1 [facility] mg chewable 0-01 [id number] tablet by i ty of tablet 00:00: mouth [place] 00 daily. [facility] aspirin 81 2020- Yes [id number] 81mg Take 1 [facility] mg chewable 0-01 [id number] tablet by i ty of tablet 00:00: mouth [place] 00 daily. [facility] aspirin 81 2020- Yes [id number] 81mg Take 1 [facility] mg chewable 0-01 [id number] tablet by i ty of tablet 00:00: mouth [place] 00 daily. [facility] aspirin 81 2020- Yes [id number] 81mg Take 1 [facility] mg chewable 0-01 [id number] tablet by i ty of tablet 00:00: mouth [place] 00 daily. [facility] aspirin 81 2020- Yes [id number] 81mg Take 1 [facility] mg chewable 0-01 [id number] tablet by i ty of tablet 00:00: mouth [place] 00 daily. [facility] aspirin 81 2020- Yes [id number] 81mg Take 1 [facility] mg chewable 0-01 [id number] tablet by i ty of tablet 00:00: mouth [place] 00 daily. [facility] aspirin 81 2020- Yes [id number] 81mg Take 1 [facility] mg chewable 0-01 [id number] tablet by i ty of tablet 00:00: mouth [place] 00 daily. [facility] aspirin 81 2020- Yes [id number] 81mg Take 1 [facility] mg chewable 0-01 [id number] tablet by i ty of tablet 00:00: mouth [place] 00 daily. [facility] aspirin 81 2020- Yes [id number] 81mg Take 1 [facility] mg chewable 0-01 [id number] tablet by i ty of tablet 00:00: mouth [place] 00 daily. [facility] aspirin 81 2020- Yes [id number] 81mg Take 1 [facility] mg chewable 0-01 [id number] tablet by i ty of tablet 00:00: mouth [place] 00 daily. [facility] aspirin 81 2020- Yes [id number] 81mg Take 1 [facility] mg chewable 0-01 [id number] tablet by i ty of tablet 00:00: mouth [place] 00 daily. [facility] aspirin 81 2020- Yes [id number] 81mg Take 1 [facility] mg chewable 0-01 [id number] tablet by i ty of tablet 00:00: mouth [place] 00 daily. [facility] aspirin 81 2020- Yes [id number] 81mg Take 1 [facility] mg chewable 0-01 [id number] tablet by i ty of tablet 00:00: mouth [place] 00 daily. [facility] aspirin 81 2020- Yes [id number] 81mg Take 1 [facility] mg chewable 0-01 [id number] tablet by i ty of tablet 00:00: mouth [place] 00 daily. [facility] aspirin 81 2020- Yes [id number] 81mg Take 1 [facility] mg chewable 0-01 [id number] tablet by i ty of tablet 00:00: mouth [place] 00 daily. [facility] aspirin 81 2020- Yes [id number] 81mg Take 1 [facility] mg chewable 0-01 [id number] tablet by i ty of tablet 00:00: mouth [place] 00 daily. [facility] aspirin 81 2020- Yes [id number] 81mg Take 1 [facility] mg chewable 0-01 [id number] tablet by i ty of tablet 00:00: mouth [place] 00 daily. [facility] aspirin 81 2020- Yes [id number] 81mg Take 1 [facility] mg chewable 0-01 [id number] tablet by i ty of tablet 00:00: mouth [place] 00 daily. [facility] aspirin 81 2020- Yes [id number] 81mg Take 1 [facility] mg chewable 0-01 [id number] tablet by i ty of tablet 00:00: mouth [place] 00 daily. [facility] aspirin 81 2020- Yes [id number] 81mg Take 1 [facility] mg chewable 0-01 [id number] tablet by i ty of tablet 00:00: mouth [place] 00 daily. [facility] aspirin 81 2020- Yes [id number] 81mg Take 1 [facility] mg chewable 0-01 [id number] tablet by i ty of tablet 00:00: mouth [place] 00 daily. [facility] aspirin 81 2020- Yes [id number] 81mg Take 1 [facility] mg chewable 0-01 [id number] tablet by i ty of tablet 00:00: mouth [place] 00 daily. [facility] aspirin 81 2020- Yes [id number] 81mg Take 1 [facility] mg chewable 0-01 [id number] tablet by i ty of tablet 00:00: mouth [place] 00 daily. [facility] aspirin 81 2020- Yes [id number] 81mg Take 1 [facility] mg chewable 0-01 [id number] tablet by i ty of tablet 00:00: mouth [place] 00 daily. [facility] aspirin 81 2020- Yes [id number] 81mg Take 1 [facility] mg chewable 0-01 [id number] tablet by i ty of tablet 00:00: mouth [place] 00 daily. [facility] aspirin 81 2020- Yes [id number] 81mg Take 1 [facility] mg chewable 0-01 [id number] tablet by i ty of tablet 00:00: mouth [place] 00 daily. [facility] aspirin 81 2020- Yes [id number] 81mg Take 1 [facility] mg chewable 0-01 [id number] tablet by i ty of tablet 00:00: mouth [place] 00 daily. [facility] aspirin 81 2020- Yes [id number] 81mg Take 1 [facility] mg chewable 0-01 [id number] tablet by i ty of tablet 00:00: mouth [place] 00 daily. [facility] aspirin 81 2020- Yes [id number] 81mg Take 1 [facility] mg chewable 0-01 [id number] tablet by i ty of tablet 00:00: mouth [place] 00 daily. [facility] aspirin 81 2020- Yes [id number] 81mg Take 1 [facility] mg chewable 0-01 [id number] tablet by i ty of tablet 00:00: mouth [place] 00 daily. [facility] aspirin 81 2020- Yes [id number] 81mg Take 1 [facility] mg chewable 0-01 [id number] tablet by i ty of tablet 00:00: mouth [place] 00 daily. [facility] aspirin 81 2020- Yes [id number] 81mg Take 1 [facility] mg chewable 0-01 [id number] tablet by i ty of tablet 00:00: mouth [place] 00 daily. [facility] aspirin 81 2020- Yes [id number] 81mg Take 1 [facility] mg chewable 0-01 006083 tablet by i ty of tablet 00:00: mouth [place] 00 daily. [facility] aspirin 81 2020- Yes [id number] 81mg Take 1 [facility] mg chewable 0-01 [id number] tablet by i ty of tablet 00:00: mouth [place] 00 daily. [facility] aspirin 81 2020- Yes [id number] 81mg Take 1 [facility] mg chewable 0-01 [id number] tablet by i ty of tablet 00:00: mouth [place] 00 daily. [facility] aspirin 81 2020- Yes [id number] 81mg Take 1 [facility] mg chewable 0-01 [id number] tablet by i ty of tablet 00:00: mouth [place] 00 daily. [facility] aspirin 81 2020- Yes [id number] 81mg Take 1 [facility] mg chewable 0-01 [id number] tablet by i ty of tablet 00:00: mouth [place] 00 daily. [facility] aspirin 81 2020- Yes [id number] 81mg Take 1 [facility] mg chewable 0-01 [id number] tablet by i ty of tablet 00:00: mouth [place] 00 daily. [facility] aspirin 81 2020- Yes [id number] 81mg Take 1 [facility] mg chewable 0-01 [id number] tablet by i ty of tablet 00:00: mouth [place] 00 daily. [facility] aspirin 81 2020- Yes [id number] 81mg Take 1 [facility] mg chewable 0-01 [id number] tablet by i ty of tablet 00:00: mouth [place] 00 daily. [facility] aspirin 81 2020- Yes [id number] 81mg Take 1 [facility] mg chewable 0-01 [id number] tablet by i ty of tablet 00:00: mouth [place] 00 daily. [facility] aspirin 81 2020- Yes [id number] 81mg Take 1 [facility] mg chewable 0-01 [id number] tablet by i ty of tablet 00:00: mouth [place] 00 daily. [facility] aspirin 81 2020- Yes [id number] 81mg Take 1 [facility] mg chewable 0-01 [id number] tablet by i ty of tablet 00:00: mouth [place] 00 daily. [facility] aspirin 81 2020- Yes [id number] 81mg Take 1 [facility] mg chewable 0-01 [id number] tablet by i ty of tablet 00:00: mouth [place] 00 daily. [facility] aspirin 81 2020- Yes [id number] 81mg Take 1 [facility] mg chewable 0-01 [id number] tablet by i ty of tablet 00:00: mouth [place] 00 daily. [facility] aspirin 81 2020- Yes [id number] 81mg Take 1 [facility] mg chewable 0-01 [id number] tablet by i ty of tablet 00:00: mouth [place] 00 daily. [facility] aspirin 81 2019-02 Yes [id number] 81mg Take 1 [facility] mg chewable 0-01 [id number] tablet by i ty of tablet 00:00: mouth [place] 00 daily. [facility] aspirin 81 2019-02 Yes [id number] 81mg Take 1 [facility] mg chewable 0-01 [id number] tablet by i ty of tablet 00:00: mouth [place] 00 daily. [facility] aspirin 81 2019-02 Yes [id number] 81mg Take 1 [facility] mg chewable 0-01 [id number] tablet by i ty of tablet 00:00: mouth [place] 00 daily. [facility] aspirin 81 2019-02 Yes [id number] 81mg Take 1 [facility] mg chewable 0-01 [id number] tablet by i ty of tablet 00:00: mouth [place] 00 daily. [facility] aspirin 81 2019-02 Yes [id number] 81mg Take 1 [facility] mg chewable 0-01 [id number] tablet by i ty of tablet 00:00: mouth [place] 00 daily. [facility] aspirin 81 2019-02 Yes [id number] 81mg Take 1 [facility] mg chewable 0-01 [id number] tablet by i ty of tablet 00:00: mouth [place] 00 daily. [facility] aspirin 81 2019-02 Yes [id number] 81mg Take 1 [facility] mg chewable 0-01 [id number] tablet by i ty of tablet 00:00: mouth [place] 00 daily. [facility] pantoprazol 2019-02- No [id number] 20mg Take 1 [facility] e 20 mg EC 0-01 07-15 tablet by ity of tablet 00:00: 00:00 mouth [place] 00 :00 daily. Medical Take 30 Branch mins before breakfast. pantoprazol 2019-02- No [id number] 20mg Take 1 [facility] e 20 mg [...] for premedicat ion hydrALAZINE 2020-0 Yes 50mg Q.[id number] Take [address] [facility] (APRESOLINE 2-17 [id number] by [facility] ) 50 MG 00:00: 3D (three) Medical tablet 00 times Center daily . hydroCHLORO 2020-0 Yes 25mg QD Take [address] [facility] thiazide 2-17 [facility] (HYDRODIURI 00:00: daily. [facility]) 25 MG 00 Center tablet hydrALAZINE 2020-0 Yes 50mg Q.[id number] Take [address] [facility] (APRESOLINE 2-17 [id number] by [facility] ) 50 MG 00:00: 3D (three) Medical tablet 00 times Center daily . hydroCHLORO 2020-0 Yes 25mg QD Take [address] [facility] thiazide 2-17 [facility] (HYDRODIURI 00:00: daily. [facility]) 25 MG 00 Center tablet hydrALAZINE 2020-0 Yes 50mg Q.[id number] Take [address] [facility] (APRESOLINE 2-17 [id number] [facility] ) 50 MG 00:00: 3D (three) Medical tablet 00 times [facility] daily . hydroCHLORO 2020-0 Yes 25mg QD Take [address] [facility] thiazide 2-17 [facility] (HYDRODIURI 00:00: daily. [facility]) 25 MG 00 Center tablet hydrALAZINE 2020-0 Yes 50mg Q.[id number] Take [address] [facility] (APRESOLINE 2-17 [id number] by [facility] ) 50 MG 00:00: 3D (three) Medical tablet 00 times [facility] daily . hydroCHLORO 2020-0 Yes 25mg QD Take [address] [facility] thiazide 2-17 [facility] (HYDRODIURI 00:00: daily. [facility]) 25 MG 00 Center tablet hydrALAZINE 2020-0 Yes 50mg Q.[id number] Take [address] [facility] (APRESOLINE 2-17 [id number] by [facility] ) 50 MG 00:00: 3D (three) Medical tablet 00 times [facility] daily . hydroCHLORO 2020-0 Yes 25mg QD Take [address] [facility] thiazide 2-17 [facility] (HYDRODIURI 00:00: daily. [facility]) 25 MG 00 Center tablet hydrALAZINE 2020-0 Yes 50mg Q.[id number] Take [address] [facility] (APRESOLINE 2-17 [id number] by [facility] ) 50 MG 00:00: 3D (three) Medical tablet 00 times [facility] daily . hydroCHLORO 2020-0 Yes 25mg QD Take [address] [facility] thiazide 2-17 by [facility] (HYDRODIURI 00:00: daily. [facility]) 25 MG 00 Center tablet hydrALAZINE 2020-0 Yes 50mg Q.[id number] Take [address] [facility] (APRESOLINE 2-17 [id number] [facility] ) 50 MG 00:00: 3D (three) Medical tablet 00 times Center daily . hydroCHLORO 2020-0 Yes 25mg QD Take [address] [facility] thiazide 2-17 [facility] daily. [facility]) 25 MG 00 Center tablet hydrALAZINE 2020-0 Yes 50mg Q.[id number] Take [address] [facility] (APRESOLINE 2-17 [id number] [facility] ) 50 MG 00:00: 3D (three) Medical tablet 00 times Center daily . hydroCHLORO 2020-0 Yes 25mg QD Take [address] [facility] thiazide 2-17 by [facility] (HYDRODIURI [facility]: daily. [facility] angel[facility] L) 25 MG 00 Center tablet hydrALAZINE 2020-0 Yes 50mg Q.[id number] Take [address] [facility] (APRESOLINE 2-17 [id number] by [facility] ) 50 MG 00:00: 3D (three) Medical tablet 00 times Center daily . hydroCHLORO 2020-0 Yes 25mg QD Take [address] [facility] thiazide 2-17 [facility] (HYDRODIURI [facility]: daily. [facility]) 25 MG 00 Center tablet hydrALAZINE 2020-0 Yes 50mg Q.[id number] Take [address] [facility] (APRESOLINE 2-17 [id number] by mouth [facility] ) 50 MG 00:00: 3D (three) Medical tablet 00 times Center daily . hydroCHLORO 2020-0 Yes 25mg QD Take [address] [facility] thiazide 2-17 [facility] (HYDRODIURI [facility]: daily. [facility]) 25 MG 00 Center tablet hydrALAZINE 2020-0 Yes 50mg Q.[id number] Take [address] [facility] (APRESOLINE 2-17 [id number] by [facility] ) 50 MG 00:00: 3D (three) Medical tablet 00 times Center daily . hydroCHLORO 2020-0 Yes 25mg QD Take [address] [facility] thiazide 2-17 by [facility] (HYDRODIURI [facility]: daily. [facility]) 25 MG 00 Center tablet hydrALAZINE 2020-0 Yes 50mg Q.[id number] Take [address] [facility] (APRESOLINE 2-17 [id number] [facility] ) 50 MG 00:00: 3D (three) Medical tablet 00 times Center daily . hydroCHLORO 2020-0 Yes 25mg QD Take [address] [facility] thiazide 2-17 [facility] (HYDRODIURI [facility]: daily. [facility] L) 25 MG 00 Center tablet hydrALAZINE 2020-0 Yes 50mg Q.[id number] Take [address] [facility] (APRESOLINE 2-17 [id number] by mouth [facility] ) 50 MG 00:00: 3D (three) Medical tablet 00 times Center daily . hydroCHLORO 2020-0 Yes 25mg QD Take [address] [facility] thiazide 2-17 by [facility] (HYDRODIURI [facility]: daily. [facility]) 25 MG 00 Center tablet hydrALAZINE 2020-0 Yes 50mg Q.[id number] Take [address] [facility] (APRESOLINE 2-17 [id number] by [facility] ) 50 MG 00:00: 3D (three) Medical tablet 00 times Center daily . hydroCHLORO 2020-0 Yes 25mg QD Take [address] [facility] thiazide 2-17 by [facility] (HYDRODIURI [facility]: daily. [facility]) 25 MG 00 Center tablet hydrALAZINE 2020-0 Yes 50mg Q.[id number] Take [address] [facility] (APRESOLINE 2-17 [id number] [facility] ) 50 MG [...] [facility]: daily. [address] aspirin 81 2019-0 Yes 81mg QD Take [address] [facility] chewable 6-21 by [facility] tablet 00:00: daily. [address] aspirin 81 2019-0 Yes 81mg QD Take [address] MG chewable 6-21 by mouth [facility] tablet 00:00: daily. [address] aspirin 81 2019-0 Yes 81mg QD Take [address] MG chewable 6-21 by mouth [facility] tablet 00:00: daily. [address] aspirin 81 2019-0 Yes 81mg QD Take [address] MG chewable 6-21 by mouth [facility] tablet 00:00: daily. [address] aspirin 81 2019-0 Yes 81mg QD Take [address] MG chewable 6-21 by mouth [facility] tablet 00:00: daily. [address] aspirin 81 2019-0 Yes 81mg QD Take [address] MG chewable 6-21 by mouth [facility] tablet 00:00: daily. [address] aspirin 81 2019-0 Yes 81mg QD Take [address] MG chewable 6-21 by mouth [facility] tablet 00:00: daily. [address] aspirin 81 2019-0 Yes 81mg QD Take [address] MG chewable 6-21 by mouth [facility] tablet 00:00: daily. [address] aspirin 81 2019-0 Yes 81mg QD Take [address] MG chewable 6-21 by mouth [facility] tablet 00:00: daily. [address] aspirin 81 2019-0 Yes 81mg QD Take [address] MG chewable 6-21 by mouth [facility] tablet 00:00: daily. Medical 00 [place] aspirin 81 2019-0 Yes 81mg QD Take [address] MG chewable 6-21 by mouth [facility] tablet 00:00: daily. Medical 00 [place] aspirin 81 2019-0 Yes 81mg QD Take [address] MG chewable 6-21 by mouth [facility] tablet 00:00: daily. Medical 00 [place] aspirin 81 2019-0 Yes 81mg QD Take [address] MG chewable 6-21 by mouth [facility] tablet 00:00: daily. Medical 00 [place] aspirin 81 2019-0 Yes 81mg QD Take [address] MG chewable 6-21 by mouth [facility] tablet 00:00: daily. Medical 00 [place] atorvastati 2017-02 Yes 40mg QD Take [address] [facility] (LIPITOR) 1-30 by mouth [facility] 40 MG 00:00: daily. Medical tablet 00 [place] amLODIPine 2017-02 Yes 2.5mg QD Take 2.[address] (NORVASC) 5 1-30 mg by [facility] tablet 00:[facility]: mouth Medical 00 daily . [place] atorvastati 2017-02 Yes 40mg QD Take [address] [facility] (LIPITOR) 1-30 by mouth [facility] 40 MG 00:00: daily. Medical tablet 00 [place] amLODIPine 2017-02 Yes 2.5mg QD Take 2.[address] (NORVASC) 5 1-30 mg by [facility] tablet 00:00: mouth Medical 00 daily . [place] atorvastati 2017-02 Yes 40mg QD Take [address] [facility] (LIPITOR) 1-30 by mouth [facility] 40 MG 00:00: daily. Medical tablet 00 [place] amLODIPine 2017-02 Yes 2.5mg QD Take 2.[address] (NORVASC) 5 1-30 mg by [facility] tablet 00:00: mouth Medical 00 daily . [place] atorvastati 2017-02 Yes 40mg QD Take [address] [facility] (LIPITOR) 1-30 by mouth [facility] 40 MG 00:00: daily. Medical tablet 00 [place] amLODIPine 2017-02 Yes 2.5mg QD Take 2.[address] (NORVASC) 5 1-30 mg by [facility] tablet 00:00: mouth Medical 00 daily . [place] atorvastati 2017-02 Yes 40mg QD Take [address] [facility] (LIPITOR) 1-30 by mouth [facility] 40 MG 00:00: daily. Medical tablet 00 [place] amLODIPine 2017-02 Yes 2.5mg QD Take 2.[address] (NORVASC) 5 1-30 mg by [facility] tablet 00:00: mouth Medical 00 daily . [place] atorvastati 2017-02 Yes 40mg QD Take [address] [facility] (LIPITOR) 1-30 by mouth [facility] 40 MG 00:00: daily. Medical tablet 00 [place] amLODIPine 2017-02 Yes 2.5mg QD Take 2.[address] (NORVASC) 5 1-30 mg by [facility] tablet 00:00: mouth Medical 00 daily . [place] atorvastati 2017-02 Yes 40mg QD Take [address] [facility] (LIPITOR) 1-30 by mouth [facility] 40 MG 00:00: daily. Medical tablet 00 [place] amLODIPine 2017-02 Yes 2.5mg QD Take 2.[address] (NORVASC) 5 1-30 mg by [facility] tablet 00:00: mouth Medical 00 daily . [place] atorvastati 2017-02 Yes 40mg QD Take [address] [facility] (LIPITOR) 1-30 by mouth [facility] 40 MG 00:00: daily. Medical tablet 00 [place] amLODIPine 2017-02 Yes 2.5mg QD Take 2.[address] (NORVASC) 5 1-30 mg by [facility] tablet 00:00: mouth Medical 00 daily . [place] atorvastati 2017-02 Yes 40mg QD Take [address] [facility] (LIPITOR) 1-30 by mouth [facility] 40 MG 00:00: daily. Medical tablet 00 [place] amLODIPine 2017-02 Yes 2.5mg QD Take 2.[address] (NORVASC) 5 1-30 mg by [facility] tablet 00:00: mouth Medical 00 daily . [place] atorvastati 2017-02 Yes 40mg QD Take [address] [facility] (LIPITOR) 1-30 by mouth [facility] 40 MG 00:00: daily. Medical tablet 00 [place] amLODIPine 2017-02 Yes 2.5mg QD Take 2.[address] (NORVASC) 5 1-30 mg by [facility] tablet 00:00: mouth Medical 00 daily . [place] atorvastati 2017-02 Yes 40mg QD Take [address] [facility] (LIPITOR) 1-30 by mouth [facility] 40 MG 00:00: daily. Medical tablet 00 [place] amLODIPine 2017-02 Yes 2.5mg QD Take 2.[address] (NORVASC) 5 1-30 mg by [facility] tablet 00:00: mouth Medical 00 daily . [place] atorvastati 2017-02 Yes 40mg QD Take [address] [facility] (LIPITOR) 1-30 by mouth [facility] 40 MG 00:00: daily. Medical tablet 00 [place] amLODIPine 2017-02 Yes 2.5mg QD Take 2.[address] (NORVASC) 5 1-30 mg by [facility] tablet 00:00: mouth Medical 00 daily . [place] atorvastati 2017-02 Yes 40mg QD Take [address] [facility] (LIPITOR) 1-30 by mouth [facility] 40 MG 00:00: daily. Medical tablet 00 [place] amLODIPine 2017-02 Yes 2.5mg QD Take 2.[address] (NORVASC) 5 1-30 mg by [facility] tablet 00:00: mouth Medical 00 daily . [place] atorvastati 2017-02 Yes 40mg QD Take [address] [facility] (LIPITOR) 1-30 by mouth [facility] 40 MG 00:00: daily. Medical tablet 00 [place] amLODIPine 2017-02 Yes 2.5mg QD Take 2.[address] (NORVASC) 5 1-30 mg by [facility] tablet 00:00: mouth Medical 00 daily . [place] atorvastati 2017-02 Yes 40mg QD Take [address] [facility] (LIPITOR) 1-30 by mouth [facility] 40 MG 00:00: daily. Medical tablet 00 [place] amLODIPine 2017-02 Yes 2.5mg QD Take 2.[address] (NORVASC) 5 1-30 mg by [facility] tablet 00:00: mouth Medical 00 daily . Center Immunizations Ordered Filled Date Status Comments Source Immunization Name Immunization Name Pneumococcal 20 2022-05-17 Completed [facility] PCV20 00:00:00 [facility] (Prevnar 20) Branch Pneumococcal 20 2022-05-17 Completed [facility] Conjugate, PCV20 00:00:00 [facility] dical (Prevnar 20) Branch Pneumococcal 20 2022-05-17 [...] Completed [facility] Conjugate, PCV20 00:00:00 [facility] dical (Prevnar 20) Branch Pneumococcal 20 2022-05-17 [...] Completed [facility] Conjugate, PCV20 00:00:00 [facility] dical (Prevnar 20) Branch Pneumococcal 20 2022-05-17 [...] Completed [facility] Conjugate, PCV20 00:00:00 [facility] dical (Prevnar 20) Branch Pneumococcal 20 2022-05-17 Completed [facility] Conjugate, PCV20 00:00:00 [facility] dical (Prevnar 20) Branch Pneumococcal 20 2022-05-17 Completed [facility] Conjugate, PCV20 00:00:00 [facility] dical (Prevnar 20) Branch Pneumococcal 20 2022-05-17 Completed [facility] Conjugate, PCV20 00:00:00 [facility] dical (Prevnar 20) Branch Influenza Virus 2021-12-24 [...] rsity of MODERNA 0.25ML 00:00:00 [facility]ACC[facility] SARS-COV-2 COVID-19 2021-01-15 Completed [...] Unive rsity of MODERNA 0.25ML 00:00:00 [facility] angelica BOOSTER VACCINE Branch SARS-COV-2 COVID-19 2021-01-15 Completed Unive rsity of MODERNA 0.25ML 00:00:00 [facility] angelica BOOSTER VACCINE Branch SARS-COV-2 COVID-19 2021-01-15 Completed Unive rsity of MODERNA 0.25ML 00:00:00 [facility] angelica BOOSTER VACCINE Branch SARS-COV-2 COVID-19 2021-01-15 Completed Unive rsity of MODERNA 0.25ML 00:00:00 [facility] angelica BOOSTER VACCINE Branch Influenza High Dose 2019-11-08 Completed Unive rsity of Quad 00:00:00 [facility] Influenza High Dose 2019-11-08 Completed Unive rsity of Quad 00:00:00 [facility] Influenza High Dose 2019-11-08 Completed Unive rsity of Quad 00:00:00 [facility] Influenza High Dose 2019-11-08 Completed Unive rsity of Quad 00:00:[address] [facility] Influenza High Dose 2019-11-08 Completed Unive rsity of Quad 00:00:[address] [facility] Influenza High Dose 2019-11-08 Completed Unive rsity of Quad 00:00:[address] [facility] Influenza High Dose 2019-11-08 Completed Unive [facility] of [facility] 00:00:00 [facility] Influenza High Dose 2019-11-08 Completed Unive [facility]ity of [facility] 00:00:00 [facility] Influenza High Dose 2019-11-08 Completed Unive [facility] of [facility] 00:00:00 [facility] Influenza High Dose 2019-11-08 Completed Unive [facility]ity of [facility] 00:00:00 [facility] Influenza High Dose 2019-11-08 Completed Unive [facility]ity of [facility] 00:00:00 [facility] Influenza High Dose 2019-11-08 Completed Unive [facility]ity of [facility] 00:00:00 [facility] Influenza High Dose 2019-11-08 Completed Unive [facility]ity of [facility] 00:00:00 [facility] Influenza High Dose 2019-11-08 Completed Unive [facility]ity of [facility] 00:00:00 [facility] Influenza High Dose 2019-11-08 Completed Unive [facility]ity of [facility] 00:00:00 [facility] Influenza High Dose 2019-11-08 Completed Unive [facility]ity of [facility] 00:00:00 [facility] Influenza High Dose 2019-11-08 Completed Unive [facility]ity of [facility] 00:00:00 [facility] Influenza High Dose 2019-11-08 Completed Unive [facility]ity of [facility] 00:00:00 [facility] Influenza High Dose 2019-11-08 Completed Unive rsity of [facility] 00:00:00 [facility] Influenza High Dose 2019-11-08 Completed Unive rsity of 00:00:00 [facility] Influenza High Dose 2019-11-08 Completed Unive rsity of [facility] 00:00:00 [facility] Influenza High Dose 2019-11-08 Completed Unive rsity of 00:00:00 [facility] Influenza High Dose 2019-11-08 Completed Unive rsity of Quad 00:00:00 [facility] Influenza High Dose 2019-11-08 Completed Unive rsity of 00:00:00 [facility] Influenza High Dose 2019-11-08 Completed Unive rsity of Quad 00:00:00 [facility] Influenza High Dose 2019-11-08 Completed Unive rsity of 00:00:00 [facility] Influenza High Dose 2019-11-08 Completed Unive [facility]ity of [facility] 00:00:00 [facility] Influenza High Dose 2019-11-08 Completed Unive rsity of 00:00:00 [facility] Influenza High Dose 2019-11-08 Completed Unive rsity of Quad 00:00:00 [facility] Influenza High Dose 2019-11-08 Completed Unive rsity of 00:00:00 [facility] Influenza High Dose 2019-11-08 Completed Unive rsity of Quad 00:00:00 [facility] Influenza High Dose 2019-11-08 Completed Unive rsity of 00:00:00 [facility] Influenza High Dose 2019-11-08 Completed Unive rsity of [facility] 00:00:00 [facility] Influenza High Dose 2019-11-08 Completed Unive rsity of 00:00:00 [facility] Influenza High Dose 2019-11-08 Completed Unive [facility]ity of [facility] 00:00:00 [facility] Influenza High Dose 2019-11-08 Completed Unive rsity of 00:00:00 [facility] Influenza High Dose 2019-11-08 Completed Unive rsity of Quad 00:00:00 [facility] Influenza High Dose 2019-11-08 Completed Unive rsity of 00:00:00 [facility] Influenza High Dose 2019-11-08 Completed Unive [facility]ity of [facility] 00:00:00 [facility] Influenza High Dose 2019-11-08 Completed Unive rsity of 00:00:00 [facility] Influenza High Dose 2019-11-08 Completed Unive [facility] of [facility] 00:00:00 [facility] Influenza High Dose 2019-11-08 Completed Unive rsity of 00:00:00 [facility] Influenza High Dose 2019-11-08 Completed Unive [facility]ity of [facility] 00:00:00 [facility] Influenza High Dose 2019-11-08 Completed Unive rsity of 00:00:00 [facility] Influenza High Dose 2019-11-08 Completed Unive [facility] of [facility] 00:00:00 [facility] Influenza High Dose 2019-11-08 Completed Unive rsity of 00:00:00 [facility] Influenza High Dose 2019-11-08 Completed [facility]ive [facility] of [facility] 00:00:00 [facility] Influenza High Dose 2019-11-08 Completed Unive rsity of 00:00:00 [facility] Influenza High Dose 2019-11-08 Completed [facility]ive [facility] of [facility] 00:00:00 [facility] Influenza High Dose 2019-11-08 Completed Unive rsity of 00:00:00 [facility] Influenza High Dose 2019-11-08 Completed Unive [facility]ity of [facility] 00:00:00 [facility] Influenza High Dose 2019-11-08 Completed Unive rsity of 00:00:00 [facility] Influenza High Dose 2019-11-08 Completed Unive [facility] of [facility] 00:00:00 [facility] Influenza High Dose 2019-11-08 Completed Unive rsity of 00:00:00 [facility] Influenza High Dose 2019-11-08 Completed Unive [facility]ity of [facility] 00:00:00 [facility] Influenza High Dose 2019-11-08 Completed Unive rsity of 00:00:00 [facility] Influenza High Dose 2019-11-08 Completed Unive rsity of [facility] 00:00:00 [facility] Influenza High Dose 2019-11-08 Completed Unive rsity of 00:00:00 [facility] Influenza High Dose 2019-11-08 Completed Unive rsity of [facility] 00:00:00 [facility] Influenza High Dose 2019-11-08 Completed Unive rsity of 00:00:00 [facility] Influenza High Dose 2019-11-08 Completed Unive [facility]ity of [facility] 00:00:00 [facility] Influenza High Dose 2019-11-08 Completed Unive rsity of 00:00:00 [facility] Influenza High Dose 2019-11-08 Completed Unive [facility] of [facility] 00:00:00 [facility] Influenza High Dose 2019-11-08 Completed Unive rsity of 00:00:00 [facility] Influenza High Dose 2019-11-08 Completed Unive [facility] of [facility] 00:00:00 [facility] Influenza High Dose 2019-11-08 Completed Unive rsity of 00:00:00 [facility] Influenza High Dose 2019-11-08 Completed Unive [facility] of [facility] 00:00:00 [facility] Influenza High Dose 2019-11-08 Completed Unive rsity of 00:00:00 [facility] Influenza High Dose 2019-11-08 Completed [facility]ive [facility] of [facility] 00:00:00 [facility] Influenza High Dose 2019-11-08 Completed Unive rsity of 00:00:00 [facility] Influenza High Dose 2019-11-08 Completed Unive [facility] of [facility] 00:00:00 [facility] Influenza High Dose 2019-11-08 Completed Unive rsity of 00:00:00 [facility] Influenza High Dose 2019-11-08 Completed Unive rsity of [facility] 00:00:00 [facility] Influenza High Dose 2019-11-08 Completed Unive rsity of 00:00:00 [facility] Influenza High Dose 2019-11-08 Completed Unive [facility]ity of [facility] 00:00:00 [facility] Influenza High Dose 2019-11-08 Completed Unive rsity of 00:00:00 [facility] Influenza High Dose 2019-11-08 Completed Unive rsity of [facility] 00:00:00 [facility] Influenza High Dose 2019-11-08 Completed Unive rsity of 00:00:00 [facility] Influenza High Dose 2019-11-08 Completed Unive [facility]ity of [facility] 00:00:00 [facility] Influenza High Dose 2019-11-08 Completed Unive rsity of 00:00:00 [facility] Influenza High Dose 2019-11-08 Completed Unive [facility] of [facility] 00:00:00 [facility] Influenza High Dose 2019-11-08 Completed Unive rsity of 00:00:00 [facility] Influenza High Dose 2019-11-08 Completed Unive [facility]ity of [facility] 00:00:00 [facility] Influenza High Dose 2019-11-08 Completed Unive rsity of 00:00:00 [facility] Influenza High Dose 2019-11-08 Completed Unive [facility]ity of [facility] 00:00:00 [facility] Influenza High Dose 2019-11-08 Completed Unive rsity of 00:00:00 [facility] Influenza High Dose 2019-11-08 Completed Unive rsity of [facility] 00:00:00 [facility] Influenza High Dose 2019-11-08 Completed Unive rsity of 00:00:00 [facility] Influenza High Dose 2019-11-08 Completed Unive rsity of [facility] 00:00:00 [facility] Influenza High Dose 2019-11-08 Completed Unive rsity of 00:00:00 [facility] Influenza High Dose 2019-11-08 Completed Unive rsity of [facility] 00:00:00 [facility] Influenza High Dose 2019-11-08 Completed Unive rsity of 00:00:00 [facility] Influenza High Dose 2019-11-08 Completed Unive rsity of [facility] 00:00:00 [facility] Influenza High Dose 2019-11-08 Completed Unive rsity of 00:00:00 [facility] Influenza High Dose 2019-11-08 Completed Unive [facility]ity of [facility] 00:00:00 [facility] Influenza High Dose 2019-11-08 Completed Unive rsity of 00:00:00 [facility] Influenza High Dose 2019-11-08 Completed Unive rsity of [facility] 00:00:00 [facility] Influenza High Dose 2019-11-08 Completed Unive rsity of 00:00:00 [facility] Influenza High Dose 2019-11-08 Completed Unive rsity of [facility] 00:00:00 [facility] Influenza High Dose 2019-11-08 Completed Unive rsity of 00:00:00 [facility] Influenza High Dose 2019-11-08 Completed Unive [facility]ity of [facility] 00:00:00 [facility] Influenza High Dose 2019-11-08 Completed Unive rsity of 00:00:00 [facility] Influenza High Dose 2019-11-08 Completed Unive [facility]ity of [facility] 00:00:00 [facility] Influenza High Dose 2019-11-08 Completed Unive rsity of 00:00:00 [facility] Influenza High Dose 2019-11-08 Completed Unive [facility]ity of [facility] 00:00:00 [facility] Influenza High Dose 2019-11-08 Completed Unive rsity of 00:00:00 [facility] Influenza High Dose 2019-11-08 Completed Unive [facility] of [facility] 00:00:00 [facility] Influenza High Dose 2019-11-08 Completed Unive rsity of 00:00:00 [facility] Influenza High Dose 2019-11-08 Completed Unive [facility] of [facility] 00:00:00 [facility] Influenza High Dose 2019-11-08 Completed Unive rsity of 00:00:00 [facility] Influenza High Dose 2019-11-08 Completed Unive [facility] of [facility] 00:00:00 [facility] Influenza High Dose 2019-11-08 Completed Unive rsity of 00:00:00 [facility] Influenza High Dose 2019-11-08 Completed Unive [facility] of [facility] 00:00:00 [facility] Influenza High Dose 2019-11-08 Completed Unive rsity of 00:00:00 [facility] Influenza High Dose 2019-11-08 Completed Unive [facility] of [facility] 00:00:00 [facility] Influenza High Dose 2019-11-08 Completed Unive rsity of 00:00:00 [facility] Influenza High Dose 2019-11-08 Completed Unive [facility] of [facility] 00:00:00 [facility] Influenza High Dose 2019-11-08 Completed Unive rsity of 00:00:00 [facility] Influenza High Dose 2019-11-08 Completed Unive [facility] of [facility] 00:00:00 [facility] Influenza High Dose 2019-11-08 Completed Unive rsity of 00:00:00 [facility] Influenza High Dose 2019-11-08 Completed Unive [facility] of [facility] 00:00:00 [facility] Influenza High Dose 2019-11-08 Completed Unive rsity of 00:00:00 [facility] Influenza High Dose 2019-11-08 Completed Unive [facility] of [facility] 00:00:00 [facility] Influenza High Dose 2019-11-08 Completed Unive rsity of 00:00:00 [facility] Influenza High Dose 2019-11-08 Completed Unive [facility] of [facility] 00:00:00 [facility] Influenza High Dose 2019-11-08 Completed Unive rsity of 00:00:00 [facility] Influenza High Dose 2019-11-08 Completed Unive [facility]ity of [facility] 00:00:00 [facility] Influenza High Dose 2019-11-08 Completed Unive rsity of 00:00:00 [facility] Influenza High Dose 2019-11-08 Completed Unive [facility] of [facility] 00:00:00 [facility] Influenza High Dose 2019-11-08 Completed Unive rsity of 00:00:00 [facility] Influenza High Dose 2019-11-08 Completed Unive [facility] of [facility] 00:00:00 [facility] Influenza High Dose 2019-11-08 Completed Unive rsity of 00:00:00 [facility] Influenza High Dose 2019-11-08 Completed Unive [facility] of [facility] 00:00:00 [facility] Influenza High Dose 2019-11-08 Completed Unive rsity of 00:00:00 [facility] Influenza High Dose 2019-11-08 Completed Unive [facility] of [facility] 00:00:00 [facility] Influenza High Dose 2019-11-08 Completed Unive rsity of 00:00:00 [facility] Influenza High Dose 2019-11-08 Completed Unive [facility] of [facility] 00:00:00 [facility] Influenza High Dose 2019-11-08 Completed Unive rsity of 00:00:00 [facility] Influenza High Dose 2019-11-08 Completed Unive [facility] of [facility] 00:00:00 [facility] Influenza High Dose 2019-11-08 Completed Unive rsity of 00:00:00 [facility] Influenza High Dose 2019-11-08 Completed Unive [facility] of [facility] 00:00:00 [facility] Influenza High Dose 2019-11-08 Completed Unive rsity of 00:00:00 [facility] Influenza High Dose 2019-11-08 Completed [facility]00 [facility] Influenza High Dose 2019-11-08 Completed [facility] 00[facility]00:00 [facility] Influenza High Dose 2019-11-08 Completed [facility] 00[facility]00:00 [facility] Influenza High Dose 2019-11-08 Completed [facility] 00:00:00 [facility] Influenza High Dose 2019-11-08 Completed [facility] 00[facility]00:00 [facility] Influenza High Dose 2019-11-08 Completed [facility] 00:00:00 [facility] Influenza High Dose 2019-11-08 Completed [facility] 00[facility]00:00 [facility] Influenza High Dose 2019-11-08 Completed [facility] 00:00:00 [facility] Influenza High Dose 2019-11-08 Completed [facility] 00[facility]00:00 [facility] Influenza High Dose 2019-11-08 Completed [facility] 00:00:00 [facility] Influenza High Dose 2019-11-08 Completed [facility] 00:00:00 [facility] Influenza High Dose 2019-11-08 Completed [facility] 00:00:00 [facility] Influenza High Dose 2019-11-08 Completed [facility] 00[facility]00:00 [facility] Influenza High Dose 2019-11-08 Completed [facility] 00:00:00 [facility] Influenza High Dose 2019-11-08 Completed [facility] 00[facility]00:00 [facility] Influenza High Dose 2019-11-08 Completed [facility] 00:00:00 [facility] Influenza High Dose 2019-11-08 Completed [facility] 00[facility]00:00 [facility] Influenza High Dose 2019-11-08 Completed [facility] 00:00:00 [facility] Influenza High Dose 2019-11-08 Completed [facility] 00:00:00 [facility] Influenza High Dose 2019-11-08 Completed [facility] 00:00:00 [facility] Influenza High Dose 2019-11-08 Completed [facility] 00[facility]00:00 [facility] Influenza High Dose 2019-11-08 Completed [facility] 00:00:00 [facility] Influenza High Dose 2019-11-08 Completed [facility] 00:00:00 [facility] Influenza High Dose 2019-11-08 Completed [facility] 00:00:00 [facility] Influenza High Dose 2019-11-08 Completed [facility] 00:00:00 [facility] Influenza High Dose 2019-11-08 Completed [facility] 00:00:00 [facility] Influenza High Dose 2019-11-08 Completed [facility] 00:00:00 [facility] Influenza High Dose 2019-11-08 Completed [facility] 00:00:00 [facility] Influenza High Dose 2019-11-08 Completed [facility] 00:00:00 [facility] Influenza High Dose 2019-11-08 Completed [facility] 00:00:00 [facility] Influenza High Dose 2019-11-08 Completed [facility] 00:00:00 [facility] Influenza High Dose 2019-11-08 Completed [facility] 00:00:00 [facility] Influenza High Dose 2019-11-08 Completed [facility] 00:00:00 [facility] Influenza High Dose 2019-11-08 Completed [facility] 00:00:00 [facility] Influenza High Dose 2019-11-08 Completed [facility] 00:00:00 [facility] Influenza High Dose 2019-11-08 Completed [facility] 00:00:00 [facility] Influenza High Dose 2019-11-08 Completed [facility] 00:00:00 [facility] Influenza High Dose 2019-11-08 Completed [facility] 00:00:00 [facility] Influenza High Dose 2019-11-08 Completed [facility] 00:00:00 [facility] Influenza High Dose 2019-11-08 Completed [facility] 00:00:00 [facility] Influenza High Dose 2019-11-08 Completed [facility] 00:00:00 [facility] Influenza High Dose 2019-11-08 Completed [facility] 00:00:00 [facility] Influenza High Dose 2019-11-08 Completed [facility] 00:00:00 [facility] Influenza High Dose 2019-11-08 Completed [facility] 00:00:00 [facility] Influenza High Dose 2019-11-08 Completed [facility] 00:00:00 [facility] Influenza High Dose 2019-11-08 Completed [facility] 00:00:00 [facility] Influenza High Dose 2019-11-08 Completed [facility] 00:00:00 [facility] Influenza High Dose 2019-11-08 Completed [facility] 00:00:00 [facility] Influenza High Dose 2019-11-08 Completed [facility] 00:00:00 [facility] Influenza High Dose 2019-11-08 Completed [facility] 00:00:00 [facility] Influenza High Dose 2019-11-08 Completed [facility] 00:00:00 [facility] Influenza High Dose 2019-11-08 Completed [facility] 00:00:00 [facility] Influenza High Dose 2019-11-08 Completed [facility] 00:00:00 [facility] Influenza High Dose 2019-11-08 Completed [facility] 00:00:00 [facility] Influenza High Dose 2019-11-08 Completed [facility] 00:00:00 [facility] Influenza High Dose 2019-11-08 Completed [facility] 00:00:00 [facility] Influenza High Dose 2019-11-08 Completed [facility] 00:00:00 [facility] Influenza High Dose 2019-11-08 Completed [facility] 00:00:00 [facility] Influenza High Dose 2019-11-08 Completed [facility] 00:00:00 [facility] Influenza High Dose 2019-11-08 Completed [facility] 00:00:00 [facility] Influenza High Dose 2019-11-08 Completed [facility] 00:00:00 [facility] Influenza High Dose 2019-11-08 Completed [facility] 00:00:00 [facility] Influenza High Dose 2019-11-08 Completed [facility] 00:00:00 [facility] Influenza High Dose 2019-11-08 Completed [facility] 00:00:00 [facility] Influenza High Dose 2019-11-08 Completed [facility] 00:00:00 [facility] Influenza High Dose 2019-11-08 Completed [facility] 00:00:00 [facility] Influenza High Dose 2019-11-08 Completed [facility] 00:00:00 [facility] Influenza High Dose 2019-11-08 Completed [facility] 00:00:00 [facility] Influenza High Dose 2019-11-08 Completed [facility] 00:00:00 [facility] Influenza High Dose 2019-11-08 Completed [facility] 00:00:00 [facility] Influenza High Dose 2019-11-08 Completed [facility] 00:00:00 [facility] Influenza High Dose 2019-11-08 Completed [facility] 00:00:00 [facility] Influenza High Dose 2019-11-08 Completed [facility] 00:00:00 [facility] Influenza High Dose 2019-11-08 Completed [facility] 00:00:00 [facility] Influenza High Dose 2019-02-13 Completed [facility] 00:00:00 [facility] Influenza High Dose 2019-02-13 Completed [facility] 00:00:00 [facility] Influenza High Dose 2019-02-13 Completed [facility] 00:00:00 [facility] Influenza High Dose 2019-02-13 Completed [facility] 00:00:00 [facility] Influenza High Dose 2019-02-13 Completed [facility] 00:00:00 [facility] Influenza High Dose 2019-02-13 Completed [facility] 00:00:00 [facility] Influenza High Dose 2019-02-13 Completed [facility] 00:00:00 [facility] Influenza High Dose 2019-02-13 Completed [facility] 00:00:00 [facility] Influenza High Dose 2019-02-13 Completed [facility] 00:00:00 [facility] Influenza High Dose 2019-02-13 Completed [facility] 00:00:00 [facility] Influenza High Dose 2019-02-13 Completed [facility] 00:00:00 [facility] Influenza High Dose 2019-02-13 Completed [facility] 00:00:00 [facility] Influenza High Dose 2019-02-13 Completed [facility] 00:00:00 [facility] Influenza High Dose 2019-02-13 Completed [facility] 00:00:00 [facility] Influenza High Dose 2019-02-13 Completed [facility] 00:00:00 [facility] Influenza High Dose 2019-02-13 Completed [facility] 00:00:00 [facility] Influenza High Dose 2019-02-13 Completed [facility] 00:00:00 [facility] Influenza High Dose 2019-02-13 Completed [facility] 00:00:00 [facility] Influenza High Dose 2019-02-13 Completed [facility] 00:00:00 [facility] Influenza High Dose 2019-02-13 Completed [facility] 00:00:00 [facility] Influenza High Dose 2019-02-13 Completed [facility] 00:00:00 [facility] Influenza High Dose 2019-02-13 Completed [facility] 00:00:00 [facility] Influenza High Dose 2019-02-13 Completed [facility] 00:00:00 [facility] Influenza High Dose 2019-02-13 Completed [facility] 00:00:00 [facility] Influenza High Dose 2019-02-13 Completed [facility] 00:00:00 [facility] Influenza High Dose 2019-02-13 Completed [facility] 00:00:00 [facility] Influenza High Dose 2019-02-13 Completed [facility] 00:00:00 [facility] Influenza High Dose 2019-02-13 Completed [facility] 00:00:00 [facility] Influenza High Dose 2019-02-13 Completed [facility] 00:00:00 [facility] Influenza High Dose 2019-02-13 Completed [facility] 00:00:00 [facility] Influenza High Dose 2019-02-13 Completed [facility] 00:00:00 [facility] Influenza High Dose 2019-02-13 Completed [facility] 00:00:00 [facility] Influenza High Dose 2019-02-13 Completed [facility] 00:00:00 [facility] Influenza High Dose 2019-02-13 Completed [facility] 00:00:00 [facility] Influenza High Dose 2019-02-13 Completed [facility] 00:00:00 [facility] Influenza High Dose 2019-02-13 Completed [facility] 00:00:00 [facility] Influenza High Dose 2019-02-13 Completed [facility] 00:00:00 [facility] Influenza High Dose 2019-02-13 Completed [facility] 00:00:00 [facility] Influenza High Dose 2019-02-13 Completed [facility] 00:00:00 [facility] Influenza High Dose 2019-02-13 Completed [facility] 00:00:00 [facility] Influenza High Dose 2019-02-13 Completed [facility] 00:00:00 [facility] Influenza High Dose 2019-02-13 Completed [facility] 00:00:00 [facility] Influenza High Dose 2019-02-13 Completed [facility] 00:00:00 [facility] Influenza High Dose 2019-02-13 Completed [facility] 00:00:00 [facility] Influenza High Dose 2019-02-13 Completed [facility] 00:00:00 [facility] Influenza High Dose 2019-02-13 Completed [facility] 00:00:00 [facility] Influenza High Dose 2019-02-13 Completed [facility] 00:00:00 [facility] Influenza High Dose 2019-02-13 Completed [facility] 00:00:00 [facility] Influenza High Dose 2019-02-13 Completed [facility] 00:00:00 [facility] Influenza High Dose 2019-02-13 Completed [facility] 00:00:00 [facility] Influenza High Dose 2019-02-13 Completed [facility] 00:00:00 [facility] Influenza High Dose 2019-02-13 Completed [facility] 00:00:00 [facility] Influenza High Dose 2019-02-13 Completed [facility] 00:00:00 [facility] Influenza High Dose 2019-02-13 Completed [facility] 00:00:00 [facility] Influenza High Dose 2019-02-13 Completed [facility] 00:00:00 [facility] Influenza High Dose 2019-02-13 Completed [facility] 00:00:00 [facility] Influenza High Dose 2019-02-13 Completed [facility] 00:00:00 [facility] Influenza High Dose 2019-02-13 Completed [facility] 00:00:00 [facility] Influenza High Dose 2019-02-13 Completed [facility] 00:00:00 [facility] Influenza High Dose 2019-02-13 Completed [facility] 00:00:00 [facility] Influenza High Dose 2019-02-13 Completed [facility] 00:00:00 [facility] Influenza High Dose 2019-02-13 Completed [facility] 00:00:00 [facility] Influenza High Dose 2019-02-13 Completed [facility] 00:00:00 [facility] Influenza High Dose 2019-02-13 Completed [facility] 00:00:00 [facility] Influenza High Dose 2019-02-13 Completed [facility] 00:00:00 [facility] Influenza High Dose 2019-02-13 Completed [facility] 00:00:00 [facility] Influenza High Dose 2019-02-13 Completed [facility] 00:00:00 [facility] Influenza High Dose 2019-02-13 Completed [facility] 00:00:00 [facility] Influenza High Dose 2019-02-13 Completed [facility] 00:00:00 [facility] Influenza High Dose 2019-02-13 Completed [facility] 00:00:00 [facility] Influenza High Dose 2019-02-13 Completed [facility] 00:00:00 [facility] Influenza High Dose 2019-02-13 Completed [facility] 00:00:00 [facility] Influenza High Dose 2019-02-13 Completed [facility] 00:00:00 [facility] Influenza High Dose 2019-02-13 Completed [facility] 00:00:00 [facility] Influenza High Dose 2019-02-13 Completed [facility] 00:00:00 [facility] Influenza High Dose 2019-02-13 Completed [facility] 00:00:00 [facility] Influenza High Dose 2019-02-13 Completed [facility] 00:00:00 [facility] Influenza High Dose 2019-02-13 Completed [facility] 00:00:00 [facility] Influenza High Dose 2019-02-13 Completed [facility] 00:00:00 [facility] Influenza High Dose 2019-02-13 Completed [facility] 00:00:00 [facility] Influenza High Dose 2019-02-13 Completed [facility] 00:00:00 [facility] Influenza High Dose 2019-02-13 Completed [facility] 00:00:00 [facility] Influenza High Dose 2019-02-13 Completed [facility] 00:00:00 [facility] Influenza High Dose 2019-02-13 Completed [facility] 00:00:00 [facility] Influenza High Dose 2019-02-13 Completed [facility] 00:00:00 [facility] Influenza High Dose 2019-02-13 Completed [facility] 00:00:00 [facility] Influenza High Dose 2019-02-13 Completed [facility] 00:00:00 [facility] Influenza High Dose 2019-02-13 Completed [facility] 00:00:00 [facility] Influenza High Dose 2019-02-13 Completed [facility] 00:00:00 [facility] Influenza High Dose 2019-02-13 Completed [facility] 00:00:00 [facility] Influenza High Dose 2019-02-13 Completed [facility] 00:00:00 [facility] Influenza High Dose 2019-02-13 Completed [facility] 00:00:00 [facility] Influenza High Dose 2019-02-13 Completed [facility] 00:00:00 [facility] Influenza High Dose 2019-02-13 Completed [facility] 00:00:00 [facility] Influenza High Dose 2019-02-13 Completed [facility] 00:00:00 [facility] Influenza High Dose 2019-02-13 Completed [facility] 00:00:00 [facility] Influenza High Dose 2019-02-13 Completed [facility] 00:00:00 [facility] Influenza High Dose 2019-02-13 Completed [facility] 00:00:00 [facility] Influenza High Dose 2019-02-13 Completed [facility] 00:00:00 [facility] Influenza High Dose 2019-02-13 Completed [facility] 00:00:00 [facility] Influenza High Dose 2019-02-13 Completed [facility] 00:00:00 [facility] Influenza High Dose 2019-02-13 Completed [facility] 00:00:00 [facility] Influenza High Dose 2019-02-13 Completed [facility] 00:00:00 [facility] Influenza High Dose 2019-02-13 Completed [facility] 00:00:00 [facility] Influenza High Dose 2019-02-13 Completed [facility] 00:00:00 [facility] Influenza High Dose 2019-02-13 Completed [facility] 00:00:00 [facility] Influenza High Dose 2019-02-13 Completed [facility] 00:00:00 [facility] Influenza High Dose 2019-02-13 Completed [facility] 00:00:00 [facility] Influenza High Dose 2019-02-13 Completed [facility] 00:00:00 [facility] Influenza High Dose 2019-02-13 Completed [facility] 00:00:00 [facility] Influenza High Dose 2019-02-13 Completed [facility] 00:00:00 [facility] Influenza High Dose 2019-02-13 Completed [facility] 00:00:00 [facility] Influenza High Dose 2019-02-13 Completed [facility] 00:00:00 [facility] Influenza High Dose 2019-02-13 Completed [facility] 00:00:00 [facility] Influenza High Dose 2019-02-13 Completed [facility] 00:00:00 [facility] Influenza High Dose 2019-02-13 Completed [facility] 00:00:00 [facility] Influenza High Dose 2019-02-13 Completed [facility] 00:00:00 [facility] TDAP 2017-11-10 Completed [facility] 00[facility]00:00 [facility] TDAP 2017-11-10 Completed [facility] 00:[facility]:[address] [facility] TDAP 2017-11-10 Completed [facility] 00[facility]00:[address] [facility] TDAP 2017-11-10 Completed [facility] 00[facility]00:[address] [facility] TDAP 2017-11-10 Completed [facility] 00:00:[address] [facility] TDAP 2017-11-10 Completed [facility] 00:00:00 [facility] TDAP 2017-11-10 Completed [facility] 00:00:[address] [facility] TDAP 2017-11-10 Completed [facility] 00[facility]00:[address] [facility] TDAP 2017-11-10 Completed [facility] 00[facility]00:[address] [facility] TDAP 2017-11-10 Completed [facility] 00[facility]00:[address] [facility] TDAP 2017-11-10 Completed [facility] 00[facility]00:[address] [facility] TDAP 2017-11-10 Completed [facility] 00[facility]00:[address] [facility] TDAP 2017-11-10 Completed [facility] 00[facility]00:[address] [facility] TDAP 2017-11-10 Completed [facility] 00:00:00 [facility] TDAP 2017-11-10 Completed [facility] 00:00:[address] [facility] TDAP 2017-11-10 Completed [facility] 00:00:00 [facility] TDAP 2017-11-10 Completed [facility] 00:00:00 [facility] TDAP 2017-11-10 Completed [facility] 00:00:00 [facility] TDAP 2017-11-10 Completed [facility] 00:00:00 [facility] TDAP 2017-11-10 Completed [facility] 00:00:00 [facility] TDAP 2017-11-10 Completed [facility] 00:00:00 [facility] TDAP 2017-11-10 Completed [facility] 00:00:00 [facility] TDAP 2017-11-10 Completed [facility] 00:00:00 [facility] TDAP 2017-11-10 Completed [facility] 00:00:00 [facility] TDAP 2017-11-10 Completed [facility] 00:00:00 [facility] TDAP 2017-11-10 Completed [facility] 00:00:00 [facility] TDAP 2017-11-10 Completed [facility] 00:00:00 [facility] TDAP 2017-11-10 Completed [facility] 00:00:00 [facility] TDAP 2017-11-10 Completed [facility] 00:00:00 [facility] TDAP 2017-11-10 Completed [facility] 00:00:00 [facility] TDAP 2017-11-10 Completed [facility] 00:00:00 [facility] TDAP 2017-11-10 Completed [facility] 00:00:00 [facility] TDAP 2017-11-10 Completed [facility] 00:00:00 [facility] TDAP 2017-11-10 Completed [facility] 00:00:00 [facility] TDAP 2017-11-10 Completed [facility] 00:00:00 [facility] TDAP 2017-11-10 Completed [facility] 00:00:00 [facility] TDAP 2017-11-10 Completed [facility] 00:00:00 [facility] TDAP 2017-11-10 Completed [facility] 00:00:00 [facility] TDAP 2017-11-10 Completed [facility] 00:00:00 [facility] TDAP 2017-11-10 Completed [facility] 00:00:00 [facility] TDAP 2017-11-10 Completed [facility] 00:00:00 [facility] TDAP 2017-11-10 Completed [facility] 00:00:00 [facility] TDAP 2017-11-10 Completed [facility] 00:00:00 [facility] TDAP 2017-11-10 Completed [facility] 00:00:00 [facility] TDAP 2017-11-10 Completed [facility] 00:00:00 [facility] TDAP 2017-11-10 Completed [facility] 00:00:00 [facility] TDAP 2017-11-10 Completed [facility] 00:00:00 [facility] TDAP 2017-11-10 Completed [facility] 00:00:00 [facility] TDAP 2017-11-10 Completed [facility] 00:00:00 [facility] TDAP 2017-11-10 Completed [facility] 00:00:00 [facility] TDAP 2017-11-10 Completed [facility] 00:00:00 [facility] TDAP 2017-11-10 Completed [facility] 00:00:00 [facility] TDAP 2017-11-10 Completed [facility] 00:00:00 [facility] TDAP 2017-11-10 Completed [facility] 00:00:00 [facility] TDAP 2017-11-10 Completed [facility] 00:00:00 [facility] TDAP 2017-11-10 Completed [facility] 00:00:00 [facility] TDAP 2017-11-10 Completed [facility] 00:00:00 [facility] TDAP 2017-11-10 Completed [facility] 00:00:00 [facility] TDAP 2017-11-10 Completed [facility] 00:00:00 [facility] TDAP 2017-11-10 Completed [facility] 00:00:00 [facility] TDAP 2017-11-10 Completed [facility] 00:00:00 [facility] TDAP 2017-11-10 Completed [facility] 00:00:00 [facility] TDAP 2017-11-10 Completed [facility] 00:00:00 [facility] TDAP 2017-11-10 Completed [facility] 00:00:00 [facility] TDAP 2017-11-10 Completed [facility] 00:00:00 [facility] TDAP 2017-11-10 Completed [facility] 00:00:00 [facility] TDAP 2017-11-10 Completed [facility] 00:00:00 [facility] TDAP 2017-11-10 Completed [facility] 00:00:00 [facility] TDAP 2017-11-10 Completed [facility] 00:00:00 [facility] TDAP 2017-11-10 Completed [facility] 00:00:00 [facility] TDAP 2017-11-10 Completed [facility] 00:00:00 [facility] TDAP 2017-11-10 Completed [facility] 00:00:00 [facility] TDAP 2017-11-10 Completed [facility] 00:00:00 [facility] TDAP 2017-11-10 Completed [facility] 00:00:00 [facility] TDAP 2017-11-10 Completed [facility] 00:00:00 [facility] TDAP 2017-11-10 Completed [facility] 00:00:00 [facility] TDAP 2017-11-10 Completed [facility] 00:00:00 [facility] TDAP 2017-11-10 Completed [facility] 00:00:00 [facility] TDAP 2017-11-10 Completed [facility] 00:00:00 [facility] TDAP 2017-11-10 Completed [facility] 00:00:00 [facility] TDAP 2017-11-10 Completed [facility] 00[facility]00:00 [facility] TDAP 2017-11-10 Completed [facility] 00:00:00 [facility] TDAP 2017-11-10 Completed [facility] 00:00:00 [facility] TDAP 2017-11-10 Completed [facility] 00:00:00 [facility] TDAP 2017-11-10 Completed [facility] 00[facility]00:00 [facility] TDAP 2017-11-10 Completed [facility] 00:00:00 [facility] TDAP 2017-11-10 Completed [facility] 00:00:00 [facility] TDAP 2017-11-10 Completed [facility] 00:00:00 [facility] TDAP 2017-11-10 Completed [facility] 00:00:00 [facility] TDAP 2017-11-10 Completed [facility] 00:00:00 [facility] TDAP 2017-11-10 Completed [facility] 00:00:00 [facility] TDAP 2017-11-10 Completed [facility] 00:00:00 [facility] TDAP 2017-11-10 Completed [facility] 00:00:00 [facility] TDAP 2017-11-10 Completed [facility] 00:00:00 [facility] TDAP 2017-11-10 Completed [facility] 00:00:00 [facility] TDAP 2017-11-10 Completed [facility] 00:00:00 [facility] TDAP 2017-11-10 Completed [facility] 00:00:00 [facility] TDAP 2017-11-10 Completed [facility] 00:00:00 [facility] TDAP 2017-11-10 Completed [facility] 00:00:00 [facility] TDAP 2017-11-10 Completed [facility] 00:00:00 [facility] TDAP 2017-11-10 Completed [facility] 00:00:00 [facility] TDAP 2017-11-10 Completed [facility] 00:00:[address] [facility] TDAP 2017-11-10 Completed [facility] 00[facility]00:[address] [facility] TDAP 2017-11-10 Completed [facility] 00:00:00 [facility] TDAP 2017-11-10 Completed [facility] 00:00:00 [facility] TDAP 2017-11-10 Completed [facility] 00:00:[address] [facility] TDAP 2017-11-10 Completed [facility] 00:00:00 [facility] TDAP 2017-11-10 Completed [facility] 00:00:00 [facility] TDAP 2017-11-10 Completed [facility] 00:00:00 [facility] TDAP 2017-11-10 Completed [facility] 00:00:00 [facility] TDAP 2017-11-10 Completed [facility] 00:00:00 [facility] TDAP 2017-11-10 Completed [facility] 00:00:00 [facility] TDAP 2017-11-10 Completed [facility] 00:00:00 [facility] TDAP 2017-11-10 Completed [facility] 00:00:00 [facility] TDAP 2017-11-10 Completed [facility] 00:00:00 [facility] TDAP 2017-11-10 Completed [facility] 00:00:00 [facility] TDAP 2017-11-10 Completed [facility] 00:00:00 [facility] Pneumococcal 2017-06-09 Completed University o f Polysaccharide, 00:00:00 [place] [facility] PPSV23 (PNEUMOVAX) [facility] Pneumococcal 2017-06-09 Completed [facility] o f Polysaccharide, 00:00:00 [facility] PPSV23 (PNEUMOVAX) [facility] Pneumococcal 2017-06-09 Completed [facility] o f Polysaccharide, 00:00:00 [place] [facility] PPSV23 (PNEUMOVAX) [facility] Pneumococcal 2017-06-09 Completed [facility] o f Polysaccharide, 00:00:00 [place] [facility] PPSV23 (PNEUMOVAX) Branch Pneumococcal 2017-06-09 Completed [facility] o f Polysaccharide, 00:00:00 [place] [facility] PPSV23 (PNEUMOVAX) Branch Pneumococcal 2017-06-09 Completed [facility] o f Polysaccharide, 00:00:00 [facility] PPSV23 (PNEUMOVAX) [facility] Pneumococcal 2017-06-09 [...] Dose 2016-11-14 Completed Unive rsity of 00:00:00 [facility] Influenza High Dose 2016-11-14 Completed [facility]ive rsity of 00:00:00 [facility] Influenza High Dose 2016-11-14 Completed [facility]ive rsity of 00:00:00 [facility] Influenza High Dose 2016-11-14 Completed [facility]ive rsity of 00:00:00 [facility] Influenza High Dose 2016-11-14 Completed [facility] rsity of 00:00:00 [facility] Influenza High Dose 2016-11-14 Completed [facility]ive rsity of 00:00:00 [facility] Influenza High Dose 2016-11-14 Completed [facility]ive rsity of 00:00:00 [facility] Influenza High Dose 2016-11-14 Completed [facility]ive rsity of 00:00:00 [facility] Influenza High Dose 2016-11-14 Completed [facility]ive rs[facility] of 00:00:00 [facility] Influenza High Dose 2016-11-14 Completed [facility]ive rsity of 00:00:00 [facility] Influenza High Dose 2016-11-14 Completed [facility]ive rsity of 00:00:00 [facility] Influenza High Dose 2016-11-14 Completed [facility]ive rsity of 00:00:00 [facility] Influenza High Dose 2016-11-14 Completed [facility]ive rsity of 00:00:00 [facility] Influenza High Dose 2016-11-14 Completed [facility]ive rsity of 00:00:00 [facility] Influenza High Dose 2016-11-14 Completed [facility]ive rsity of 00:00:00 [facility] Influenza High Dose 2016-11-14 Completed [facility]ive rsity of 00:00:00 [facility] Influenza High Dose 2016-11-14 Completed [facility]ive rsity of 00:00:00 [facility] Influenza High Dose 2016-11-14 Completed [facility]ive rsity of 00:00:00 [facility] Influenza High Dose 2016-11-14 Completed [facility] rsity of 00:00:00 [facility] Influenza High Dose 2016-11-14 Completed [facility]ive rsity of 00:00:00 [facility] Influenza High Dose 2016-11-14 Completed [facility]ive rsity of 00:00:00 [facility] Influenza High Dose 2016-11-14 Completed [facility]ive rsity of 00:00:00 [facility] Influenza High Dose 2016-11-14 Completed [facility]ive rsity of 00:00:00 [facility] Influenza High Dose 2016-11-14 Completed [facility]ive rsity of 00:00:00 [facility] Influenza High Dose 2016-11-14 Completed [facility]ive rsity of 00:00:00 [facility] Influenza High Dose 2016-11-14 Completed [facility]ive rsity of 00:00:00 [facility] Influenza High Dose 2016-11-14 Completed [facility]ive rsity of 00:00:00 [facility] Influenza High Dose 2016-11-14 Completed [facility]ive rsity of 00:00:00 [facility] Influenza High Dose 2016-11-14 Completed [facility]ive rsity of 00:00:00 [facility] Influenza High Dose 2016-11-14 Completed [facility]ive rsity of 00:00:00 [facility] Influenza High Dose 2016-11-14 Completed [facility]ive rsity of 00:00:00 [facility] Influenza High Dose 2016-11-14 Completed [facility]ive rsity of 00:00:00 [facility] Influenza High Dose 2016-11-14 Completed [facility]ive rsity of 00:00:00 [facility] Influenza High Dose 2016-11-14 Completed [facility]ive rsity of 00:00:00 [facility] Influenza High Dose 2016-11-14 Completed [facility]ive rsity of 00:00:00 [facility] Influenza High Dose 2016-11-14 Completed [facility]ive rsity of 00:00:00 [facility] Influenza High Dose 2016-11-14 Completed [facility]ive rsity of 00:00:00 [facility] Influenza High Dose 2016-11-14 Completed [facility]ive rsity of 00:00:00 [facility] Influenza High Dose 2016-11-14 Completed [facility]ive rsity of 00:00:00 [facility] Influenza High Dose 2016-11-14 Completed [facility]ive rsity of 00:00:00 [facility] Influenza High Dose 2016-11-14 Completed [facility]ive rsity of 00:00:00 [facility] Influenza High Dose 2016-11-14 Completed [facility]ive rsity of 00:00:00 [facility] Influenza High Dose 2016-11-14 Completed [facility]ive rsity of 00:00:00 [facility] Influenza High Dose 2016-11-14 Completed [facility]ive rsity of 00:00:00 [facility] Influenza High Dose 2016-11-14 Completed [facility]ive rsity of 00:00:00 [facility] Influenza High Dose 2016-11-14 Completed [facility]ive rsity of 00:00:00 [facility] Influenza High Dose 2016-11-14 Completed [facility]ive rsity of 00:00:00 [facility] Influenza High Dose 2016-11-14 Completed [facility]ive rsity of 00:00:00 [facility] Influenza High Dose 2016-11-14 Completed [facility]ive rsity of 00:00:00 [facility] Influenza High Dose 2016-11-14 Completed [facility]ive rsity of 00:00:00 [facility] Influenza High Dose 2016-11-14 Completed [facility]ive rsity of 00:00:00 [facility] Influenza High Dose 2016-11-14 Completed [facility]ive rsity of 00:00:00 [facility] Influenza High Dose 2016-11-14 Completed [facility]ive rsity of 00:00:00 [facility] Influenza High Dose 2016-11-14 Completed [facility]ive rsity of 00:00:00 [facility] Influenza High Dose 2016-11-14 Completed [facility]ive rsity of 00:00:00 [facility] Influenza High Dose 2016-11-14 Completed [facility]ive rsity of 00:00:00 [facility] Influenza High Dose 2016-11-14 Completed [facility]ive rsity of 00:00:00 [facility] Influenza High Dose 2016-11-14 Completed [facility]ive rsity of 00:00:00 [facility] Influenza High Dose 2016-11-14 Completed [facility]ive rsity of 00:00:00 [facility] Influenza High Dose 2016-11-14 Completed [facility]ive rsity of 00:00:00 [facility] Influenza High Dose 2016-11-14 Completed [facility]ive rsity of 00:00:00 [facility] Influenza High Dose 2016-11-14 Completed [facility]ive rsity of 00:00:00 [facility] Influenza High Dose 2016-11-14 Completed [facility]ive rsity of 00:00:00 [facility] Influenza High Dose 2016-11-14 Completed [facility]ive rsity of 00:00:00 [facility] Influenza High Dose 2016-11-14 Completed [facility]ive rsity of 00:00:00 [facility] Influenza High Dose 2016-11-14 Completed [facility]ive rsity of 00:00:00 [facility] Influenza High Dose 2016-11-14 Completed [facility]ive rsity of 00:00:00 [facility] Influenza High Dose 2016-11-14 Completed [facility]ive rsity of 00:00:00 [facility] Influenza High Dose 2016-11-14 Completed [facility]ive rsity of 00:00:00 [facility] Influenza High Dose 2016-11-14 Completed [facility]ive rsity of 00:00:00 [facility] Influenza High Dose 2016-11-14 Completed [facility]ive rsity of 00:00:00 [facility] Influenza High Dose 2016-11-14 Completed [facility]ive rsity of 00:00:00 [facility] Influenza High Dose 2016-11-14 Completed [facility]ive rsity of 00:00:00 [facility] Influenza High Dose 2016-11-14 Completed [facility]ive rsity of 00:00:00 [facility] Influenza High Dose 2016-11-14 Completed [facility]ive rsity of 00:00:00 [facility] Influenza High Dose 2016-11-14 Completed [facility]ive [facility] of 00:00:00 [facility] Influenza High Dose 2016-11-14 Completed Unive rsity of 00:00:[address] [facility] Influenza High Dose 2016-11-14 Completed Unive rsity of 00:00:[address] [facility] Influenza High Dose 2016-11-14 Completed Unive rsity of 00:00:[address] [facility] Influenza High Dose 2016-11-14 Completed Unive rsity of 00:00:[address] [facility] Influenza High Dose 2016-11-14 Completed [facility]ive rsity of 00:00:[address] [facility] Influenza High Dose 2016-11-14 Completed Unive rsity of 00:00:[address] [facility] Influenza High Dose 2016-11-14 Completed Unive rsity of 00:00:[address] [facility] Influenza High Dose 2016-11-14 Completed [facility]ive [facility] of 00:00:00 [facility] Influenza High Dose 2016-11-14 Completed [facility]ive rsity of 00:00:00 [facility] Influenza High Dose 2016-11-14 Completed [facility]ive rs[facility] of 00:00:00 [facility] Influenza High Dose 2016-11-14 Completed [facility]ive rsity of 00:00:[address] [facility] Influenza High Dose 2016-11-14 Completed [facility]ive rsity of 00:00:[address] [facility] Influenza High Dose 2016-11-14 Completed Unive rsity of 00:00:[address] [facility] Influenza High Dose 2016-11-14 Completed [facility]ive rsity of 00:00:[address] [facility] Influenza High Dose 2016-11-14 Completed Unive rsity of 00:00:[address] [facility] Influenza High Dose 2016-11-14 Completed [facility]ive rs[facility] of 00:00:[address] [facility] Influenza High Dose 2016-11-14 Completed [facility]ive rsity of 00:00:[address] [facility] Influenza High Dose 2016-11-14 Completed [facility]ive rsity of 00:00:[address] [facility] Influenza High Dose 2016-11-14 Completed [facility]ive rsity of 00:00:[address] [facility] Influenza High Dose 2016-11-14 Completed [facility]ive rs[facility] of 00:00:[address] [facility] Influenza High Dose 2016-11-14 Completed [facility] of 00:00:00 [facility] Influenza High Dose 2016-11-14 Completed [facility]ive rsity of 00:00:[address] [facility] Influenza High Dose 2016-11-14 Completed [facility] of 00:00:00 [facility] Influenza High Dose 2016-11-14 Completed [facility] of 00:00:00 [facility] Influenza High Dose 2016-11-14 Completed [facility] of 00:00:00 [facility] Influenza High Dose 2016-11-14 Completed [facility] of 00:00:00 [facility] Influenza High Dose 2016-11-14 Completed [facility] of 00:00:00 [facility] Influenza High Dose 2016-11-14 Completed [facility] of 00:00:00 [facility] Influenza High Dose 2016-11-14 Completed [facility] of 00:00:00 [facility] Influenza High Dose 2016-11-14 Completed [facility] of 00:00:00 [facility] Influenza High Dose 2016-11-14 Completed [facility] of 00:00:00 [facility] Influenza High Dose 2016-11-14 Completed [facility] of 00:00:00 [facility] Influenza High Dose 2016-11-14 Completed [facility] of 00:00:00 [facility] Influenza High Dose 2016-11-14 Completed [facility] of 00:00:00 [facility] Influenza High Dose 2016-11-14 Completed [facility] of 00:00:00 [facility] Influenza High Dose 2016-11-14 Completed [facility] of 00:00:00 [facility] Influenza High Dose 2016-11-14 Completed [facility] of 00:00:00 [facility] Influenza High Dose 2016-11-14 Completed [facility] of 00:00:00 [facility] Influenza High Dose 2016-11-14 Completed [facility] of 00:00:00 [facility] Influenza High Dose 2016-11-14 Completed [facility] of 00:00:00 [facility] Influenza High Dose 2016-11-14 Completed [facility] of 00:00:00 [facility] Influenza High Dose Unknown Completed [facility]ive rsity of [facility] Pneumococcal Unknown Completed [facility] Polysaccharide, [place] [facility] PPSV23 (PNEUMOVAX) [facility] TDAP Unknown Completed [facility] Influenza High Dose Unknown Completed Unive rsity of [facility] Influenza High Dose Unknown Completed [facility]ive [facility] of [facility] SARS-COV-2 COVID-19 Unknown Completed Unive rsity of MODERNA 0.25ML [facility] BOOSTER VACCINE Branch Influenza Virus Unknown Completed [facility] Vaccine,quad [place] [facility],preserve Free [facility] 65+ (FLUAD) Influenza High Dose Unknown Completed [facility]ive rsity of [facility] Pneumococcal 20 Unknown Completed [facility] of Conjugate, PCV20 [place] [facility] (Prevnar 20) Branch Influenza High Dose Unknown Completed [facility] of [facility] Pneumococcal Unknown Completed [facility] o f Polysaccharide, [place] [facility] PPSV23 (PNEUMOVAX) Branch TDAP Unknown Completed [facility] Influenza High Dose Unknown Completed [facility]ive [facility] of [facility] Influenza High Dose Unknown Completed [facility]ive [facility] of [facility] SARS-COV-2 COVID-19 Unknown Completed [facility] of [facility] 0.25ML [place] [facility] BOOSTER VACCINE [facility] Influenza Virus Unknown Completed [facility] Vaccine,quad [place] [facility],preserve Free [facility] 65+ (FLUAD) Influenza High Dose Unknown Completed [facility] of [facility] Pneumococcal 20 Unknown Completed [facility] of Conjugate, PCV20 [place] [facility] (Prevnar 20) Branch Influenza Virus Unknown Completed [facility] Vaccine,quad [place] [facility],preserve Free [facility] 65+ (FLUAD) Influenza High Dose Unknown Completed Unive rsity [facility] Pneumococcal Unknown Completed [facility] o f Polysaccharide, [place] [facility] PPSV23 (PNEUMOVAX) Branch TDAP Unknown Completed [facility] Influenza High Dose Unknown Completed [facility]ive [facility] of [facility] Influenza High Dose Unknown Completed [facility]ive [facility] of [facility] SARS-COV-2 COVID-19 Unknown Completed [facility] of [facility] 0.25ML [place] [facility] BOOSTER VACCINE [facility] Influenza Virus Unknown Completed [facility] Vaccine,quad [place] [facility],preserve Free [facility] 65+ (FLUAD) Influenza High Dose Unknown Completed [facility] of [facility] Pneumococcal 20 Unknown Completed [facility] of Conjugate, PCV20 [place] [facility] (Prevnar 20) Branch Influenza Virus Unknown Completed [facility] Vaccine,quad [place] [facility],preserve Free [facility] 65+ (FLUAD) Influenza High Dose Unknown Completed [facility] of [facility] Pneumococcal Unknown Completed [facility] o f Polysaccharide, [place] [facility] PPSV23 (PNEUMOVAX) Branch TDAP Unknown Completed [facility] Influenza High Dose Unknown Completed [facility] of [facility] Influenza High Dose Unknown Completed [facility]ive [facility] of [facility] SARS-COV-2 COVID-19 Unknown Completed [facility] of [facility] 0.25ML [place] [facility] BOOSTER VACCINE [facility] Influenza Virus Unknown Completed [facility] Vaccine,quad [place] [facility],preserve Free [facility] 65+ (FLUAD) Influenza High Dose Unknown Completed [facility] of [facility] Pneumococcal 20 Unknown Completed [facility] of Conjugate, PCV20 [place] [facility] (Prevnar 20) Branch Influenza Virus Unknown Completed [facility] Vaccine,quad [place] [facility],preserve Free [facility] 65+ (FLUAD) Influenza High Dose Unknown Completed [facility] of [facility] Pneumococcal Unknown Completed [facility] o f Polysaccharide, [place] [facility] PPSV23 (PNEUMOVAX) Branch TDAP Unknown Completed [facility] Influenza High Dose Unknown Completed [facility] of [facility] Influenza High Dose Unknown Completed [facility]ive [facility] of [facility] SARS-COV-2 COVID-19 Unknown Completed [facility] of [facility] 0.25ML [place] [facility] BOOSTER VACCINE [facility] Influenza Virus Unknown Completed [facility] Vaccine,quad [place] [facility],preserve Free [facility] 65+ (FLUAD) Influenza High Dose Unknown Completed [facility] of [facility] Pneumococcal 20 Unknown Completed [facility] of Conjugate, PCV20 [place] [facility] (Prevnar 20) Branch Influenza Virus Unknown Completed [facility] Vaccine,quad [place] [facility],preserve Free [facility] 65+ (FLUAD) Influenza High Dose Unknown Completed [facility] of [facility] Pneumococcal Unknown Completed [facility] o f Polysaccharide, [place] [facility] PPSV23 (PNEUMOVAX) Branch TDAP Unknown Completed [facility] Influenza High Dose Unknown Completed [facility] of [facility] Influenza High Dose Unknown Completed [facility]ive [facility] of [facility] SARS-COV-2 COVID-19 Unknown Completed [facility]ive [facility] of [facility] 0.25ML [place] [facility] BOOSTER VACCINE [facility] Influenza Virus Unknown Completed [facility] Vaccine,quad [place] [facility],preserve Free [facility] 65+ (FLUAD) Influenza High Dose Unknown Completed [facility] of [facility] Pneumococcal 20 Unknown Completed [facility] of Conjugate, PCV20 [place] [facility] (Prevnar 20) Branch Influenza High Dose Unknown Completed [facility] of [facility] Pneumococcal Unknown Completed [facility] f Polysaccharide, [place] [facility] PPSV23 (PNEUMOVAX) Branch TDAP Unknown Completed [facility] Influenza High Dose Unknown Completed [facility] of [facility] Influenza High Dose Unknown Completed [facility] of [facility] SARS-COV-2 COVID-19 Unknown Completed [facility] of [facility] 0.25ML [place] [facility] BOOSTER VACCINE [facility] Influenza High Dose Unknown Completed [facility] of [facility] Influenza High Dose Unknown Completed [facility] of [facility] Pneumococcal Unknown Completed [facility] f Polysaccharide, [place] [facility] PPSV23 (PNEUMOVAX) Branch TDAP Unknown Completed [facility] Influenza High Dose Unknown Completed [facility] of [facility] Influenza High Dose Unknown Completed [facility] of [facility] SARS-COV-2 COVID-19 Unknown Completed [facility] of [facility] 0.25ML [place] [facility] BOOSTER VACCINE [facility] Influenza High Dose Unknown Completed [facility] of [facility] Influenza High Dose Unknown Completed [facility] of [facility] Pneumococcal Unknown Completed [facility] o f Polysaccharide, [place] [facility] PPSV23 (PNEUMOVAX) Branch TDAP Unknown Completed [facility] Influenza High Dose Unknown Completed [facility]ive [facility] of [facility] Influenza High Dose Unknown Completed [facility] of [facility] Influenza High Dose Unknown Completed [facility] of [facility] Influenza High Dose Unknown Completed [facility] of [facility] Pneumococcal Unknown Completed [facility] o f Polysaccharide, [place] [facility] PPSV23 (PNEUMOVAX) Branch TDAP Unknown Completed [facility] Influenza High Dose Unknown Completed [facility]ive [facility] of [facility] Influenza High Dose Unknown Completed [facility]ive [facility] of [facility] SARS-COV-2 COVID-19 Unknown Completed Unive rsity of MODERNA 0.25ML [facility] angelica BOOSTER VACCINE Branch Influenza Virus Unknown Completed [facility] Vaccine,quad [place] [facility],preserve Free [facility] 65+ (FLUAD) Influenza High Dose Unknown Completed [facility] Center Pneumococcal 20 Unknown Completed Universit y of Conjugate, PCV20 [facility] dical (Prevnar 20) Branch Influenza Virus Unknown Completed [facility] Vaccine,quad [place] [facility],preserve Free Branch 65+ (FLUAD) Influenza High Dose Unknown Completed Unive rsity of [facility] Pneumococcal Unknown Completed University o f Polysaccharide, [place] [facility] PPSV23 (PNEUMOVAX) Branch TDAP Unknown Completed [facility] Influenza High Dose Unknown Completed Unive rsity of [facility] Influenza High Dose Unknown Completed Unive rsity of [facility] SARS-COV-2 COVID-19 Unknown Completed Unive rsity of [facility] 0.25ML [place] [facility] BOOSTER VACCINE Branch Influenza Virus Unknown Completed [facility]it [facility] Vaccine,quad [place] [facility],preserve Free Branch 65+ (FLUAD) Influenza High Dose Unknown Completed [facility]ive rsity of [facility] Pneumococcal 20 Unknown Completed [facility] Conjugate, PCV20 [place] [facility] (Prevnar 20) Branch Influenza Virus Unknown Completed [facility] Vaccine,quad [place] [facility],preserve Free Branch 65+ (FLUAD) Influenza High Dose Unknown Completed Unive rsity of [facility] Pneumococcal Unknown Completed University o f Polysaccharide, [place] [facility] PPSV23 (PNEUMOVAX) Branch TDAP Unknown Completed [facility] Influenza High Dose Unknown Completed Unive rsity of [facility] Influenza High Dose Unknown Completed Unive rsity of [facility] SARS-COV-2 COVID-19 Unknown Completed [facility]ive rsity of [facility] 0.25ML [place] [facility] BOOSTER VACCINE Branch Influenza Virus Unknown Completed [facility] Vaccine,quad [place] [facility],preserve Free Branch 65+ (FLUAD) Influenza High Dose Unknown Completed [facility]ive rsity of [facility] Pneumococcal 20 Unknown Completed [facility] of Conjugate, PCV20 [place] [facility] (Prevnar 20) Branch Influenza Virus Unknown Completed [facility] Vaccine,quad [place] [facility],preserve Free Branch 65+ (FLUAD) Influenza High Dose Unknown Completed [facility]ive rsity of [facility] Pneumococcal Unknown Completed University o f Polysaccharide, [place] [facility] PPSV23 (PNEUMOVAX) Branch TDAP Unknown Completed [facility] Influenza High Dose Unknown Completed Unive rsity of [facility] Influenza High Dose Unknown Completed [facility]ive rsity of [facility] SARS-COV-2 COVID-19 Unknown Completed [facility]ive rsity of [facility] 0.25ML [place] [facility] BOOSTER VACCINE Branch Influenza Virus Unknown Completed [facility] Vaccine,quad [place] [facility],preserve Free Branch 65+ (FLUAD) Influenza High Dose Unknown Completed [facility]ive rsity of [facility] Pneumococcal 20 Unknown Completed [facility] of Conjugate, PCV20 [place] [facility] (Prevnar 20) Branch Influenza Virus Unknown Completed [facility] Vaccine,quad [place] [facility],preserve Free Branch 65+ (FLUAD) Influenza High Dose Unknown Completed Unive rsity [facility] Pneumococcal Unknown Completed University o f Polysaccharide, [place] [facility] PPSV23 (PNEUMOVAX) Branch TDAP Unknown Completed [facility] Influenza High Dose Unknown Completed Unive rsity of [facility] Influenza High Dose Unknown Completed [facility]ive rsity of [facility] SARS-COV-2 COVID-19 Unknown Completed [facility]ive rsity of [facility] 0.25ML [place] [facility] BOOSTER VACCINE Branch Influenza Virus Unknown Completed [facility] Vaccine,quad [place] [facility],preserve Free Branch 65+ (FLUAD) Influenza High Dose Unknown Completed Unive rsity [facility] Pneumococcal 20 Unknown Completed [facility]it [facility] of Conjugate, PCV20 [place] [facility] (Prevnar 20) Branch Influenza Virus Unknown Completed [facility] Vaccine,quad [place] [facility],preserve Free Branch 65+ (FLUAD) Influenza High Dose Unknown Completed Unive rsity [facility] Pneumococcal Unknown Completed University o f Polysaccharide, [place] [facility] PPSV23 (PNEUMOVAX) Branch TDAP Unknown Completed [facility] Influenza High Dose Unknown Completed Unive rsity [facility] Influenza High Dose Unknown Completed Unive rsity of [facility] SARS-COV-2 COVID-19 Unknown Completed [facility]ive rsity of [facility] 0.25ML [place] [facility] BOOSTER VACCINE Branch Influenza Virus Unknown Completed [facility] Vaccine,quad [place] [facility],preserve Free Branch 65+ (FLUAD) Influenza High Dose Unknown Completed Unive rsity [facility] Pneumococcal 20 Unknown Completed [facility] of Conjugate, PCV20 [place] [facility] (Prevnar 20) Branch Influenza Virus Unknown Completed [facility] Vaccine,quad [place] [facility],preserve Free Branch 65+ (FLUAD) Vital Signs Vital Name Observation Time Observation Value Comments Source HEIGHT 2019-07-08 00:00:00 147.3 cm WEIGHT 2019-07-08 00:00:00 57.743 kg Systolic blood 2022-12-05 20:12:00 135 mm[Hg] Univer sity of pressure [facility] Diastolic blood 2022-12-05 20:12:00 76 mm[Hg] Unive rsity of [facility] Heart rate 2022-12-05 20:12:00 71 /min Universi ty [facility] Body temperature 2022-12-05 20:12:00 36.28 Monique [facility] ers[facility] [place] [facility] Respiratory rate 2022-12-05 20:12:00 16 /min Univ ers[facility] [place] [facility] Body height 2022-12-05 20:12:00 160 cm [facility] ty [facility] Body weight 2022-12-05 20:12:00 64.411 kg [facility] [place] [facility] BMI 2022-12-05 20:12:00 25.15 kg/m2 [facility] [place] [facility] Oxygen saturation in 2022-12-05 20:12:00 95 /min University of Arterial blood by [facility] Pulse oximetry Branch Systolic blood 2022-12-02 21:28:00 122 mm[Hg] Univer sity of pressure [facility] Diastolic blood 2022-12-02 21:28:00 71 mm[Hg] Unive rsity of pressure [facility] Heart rate 2022-12-02 21:28:00 74 /min [facility] Body height 2022-12-02 21:28:00 160 cm [facility] Body weight 2022-12-02 21:28:00 64.819 kg [facility] [place] [facility] BMI 2022-12-02 21:28:00 25.31 kg/m2 [facility] Oxygen saturation in 2022-12-02 21:28:00 98 /min University of Arterial blood by [facility] Pulse oximetry Branch Systolic blood 2022-11-11 19:32:00 119 mm[Hg] Univer sity of pressure [facility] Diastolic blood 2022-11-11 19:32:00 67 mm[Hg] Unive rsity of pressure [facility] Heart rate 2022-11-11 19:32:00 89 /min [facility] Body temperature 2022-11-11 19:32:00 36.61 Monique Univ ers[facility] Body height 2022-11-11 19:32:00 160 cm [facility] [place] [facility] Body weight 2022-11-11 19:32:00 64.048 kg [facility] [place] [facility] BMI 2022-11-11 19:32:00 25.01 kg/m2 [facility] [place] [facility] Oxygen saturation in 2022-11-11 19:32:00 97 /min University of Arterial blood by [facility] angelica Pulse oximetry Branch Systolic blood 2022-10-26 15:21:00 132 mm[Hg] Univer sity of pressure [facility] Diastolic blood 2022-10-26 15:21:00 50 mm[Hg] [facility]ive rsity of pressure [place] [facility] Heart rate 2022-10-26 15:21:00 70 /min [facility] [place] [facility] Respiratory rate 2022-10-26 15:21:00 18 /min Univ ers[facility] [place] [facility] Body height 2022-10-26 15:21:00 160 cm [facility] [place] [facility] Body weight 2022-10-26 15:21:00 63.504 kg [facility] [place] [facility] BMI 2022-10-26 15:21:00 24.80 kg/m2 [facility] [place] [facility] Oxygen saturation in 2022-10-26 15:21:00 96 /min University of Arterial blood by [facility] Pulse oximetry Branch Systolic blood 2022-09-22 20:30:00 124 mm[Hg] Univer sity of pressure [facility] Diastolic blood 2022-09-22 20:30:00 68 mm[Hg] Unive rsity of pressure [facility] Heart rate 2022-09-22 20:30:00 89 /min [facility] [place] [facility] Respiratory rate 2022-09-22 20:30:00 18 /min Univ ers[facility] [place] [facility] Body height 2022-09-22 20:30:00 160 cm [facility] [place] [facility] Body weight 2022-09-22 20:30:00 63.957 kg [facility] [place] [facility] BMI 2022-09-22 20:30:00 24.98 kg/m2 [facility] [place] [facility] Oxygen saturation in 2022-09-22 20:30:00 96 /min University of Arterial blood by [facility] Pulse oximetry Branch Systolic blood 2022-09-08 15:26:00 134 mm[Hg] Univer [facility]ity of pressure [place] [facility] Diastolic blood 2022-09-08 15:26:00 65 mm[Hg] Unive rsity of pressure [facility] Heart rate 2022-09-08 15:10:00 86 /min [facility] [place] [facility] Body temperature 2022-09-08 15:10:00 36.61 Monique Univ ers[facility] [place] [facility] Body height 2022-09-08 15:10:00 160 cm [facility] [place] [facility] Body weight 2022-09-08 15:10:00 64.139 kg [facility] [place] [facility] BMI 2022-09-08 15:10:00 25.05 kg/m2 [facility] [place] [facility] Oxygen saturation in 2022-09-08 15:10:00 97 /min University of Arterial blood by [place] [employer] [facility] Pulse oximetry Branch Systolic blood 2022-08-09 18:25:00 125 mm[Hg] Univer sity of pressure [facility] Diastolic blood 2022-08-09 18:25:00 76 mm[Hg] Unive rsity of pressure [facility] Heart rate 2022-08-09 18:25:00 62 /min [facility] [place] [facility] Respiratory rate 2022-08-09 18:25:00 19 /min Univ ers[facility] [place] [facility] Body height 2022-08-09 18:25:00 160 cm [facility] [place] [facility] Body weight 2022-08-09 18:25:00 62.687 kg [facility] [place] [facility] BMI 2022-08-09 18:25:00 24.48 kg/m2 [facility] [place] [facility] Oxygen saturation in 2022-08-09 18:25:00 96 /min University of Arterial blood by [employer] [place] angelica Pulse oximetry Branch Systolic blood 2022-08-09 15:15:00 138 mm[Hg] Univer sity of pressure [facility] Diastolic blood 2022-08-09 15:15:00 71 mm[Hg] Unive rsity of pressure [facility] Heart rate 2022-08-09 15:15:00 93 /min [facility] [place] [facility] Body height 2022-08-09 15:15:00 160 cm [facility] [place] [facility] Body weight 2022-08-09 15:15:00 62.642 kg [facility] [place] [facility] BMI 2022-08-09 15:15:00 24.46 kg/m2 [facility] [place] [facility] Oxygen saturation in 2022-08-09 15:15:00 96 /min University of Arterial blood by [employer] [place] angelica Pulse oximetry Branch Systolic blood 2022-07-12 20:34:00 117 mm[Hg] Univer sity of pressure [facility] Diastolic blood 2022-07-12 20:34:00 54 mm[Hg] Unive rsity of pressure [place] [facility] Heart rate 2022-07-12 20:34:00 87 /min [facility] [place] [facility] Body temperature 2022-07-12 20:34:00 36.56 Monique [facility] [place] [facility] Respiratory rate 2022-07-12 20:34:00 17 /min [facility] ers[facility] [place] [facility] Body weight 2022-07-12 20:34:00 63.957 kg [facility] [place] [facility] BMI 2022-07-12 20:34:00 24.51 kg/m2 [facility] [place] [facility] Oxygen saturation in 2022-07-12 20:34:00 96 /min [facility] of Arterial blood by [place] [employer] [facility] Pulse oximetry Branch Systolic blood 2022-06-28 15:18:00 130 mm[Hg] Univer sity of pressure [facility] Diastolic blood 2022-06-28 15:18:00 55 mm[Hg] Unive rsity of pressure [facility] Heart rate 2022-06-28 14:36:00 75 /min [facility] [place] [facility] Respiratory rate 2022-06-28 14:36:00 20 /min Univ ers[facility] [place] [facility] Body height 2022-06-28 14:36:00 161.5 cm [facility] [place] [facility] Body weight 2022-06-28 14:36:00 65 kg [facility] [place] [facility] BMI 2022-06-28 14:36:00 24.91 kg/m2 [facility] [place] [facility] Oxygen saturation in 2022-06-28 14:36:00 98 /min [facility] Arterial blood by [place] [employer] [facility] Pulse oximetry Branch Systolic blood 2022-06-09 18:20:00 126 mm[Hg] Univer sity of pressure [facility] Diastolic blood 2022-06-09 18:20:00 56 mm[Hg] Unive rsity of pressure [facility] Heart rate 2022-06-09 18:20:00 83 /min [facility] [place] [facility] Oxygen saturation in 2022-06-09 18:20:00 93 /min [facility] Arterial blood by [place] [facility] Pulse oximetry Branch Respiratory rate 2022-06-09 18:18:00 17 /min Univ ersity of [facility] Body height 2022-06-09 18:18:00 157.5 cm [facility] [place] [facility] [place] Body weight 2022-06-09 18:18:00 64.411 kg [facility] [place] [facility] [place] BMI 2022-06-09 18:18:00 25.97 kg/m2 Universi ty of [facility] Systolic blood 2022-06-07 21:32:00 126 mm[Hg] Univer sity of pressure [facility] Diastolic blood 2022-06-07 21:32:00 71 mm[Hg] Unive rsity of [facility] Heart rate 2022-06-07 21:32:00 77 /min Universi ty of [facility] Body temperature 2022-06-07 21:32:00 37.28 Monique [facility] Respiratory rate 2022-06-07 21:32:00 16 /min [facility] ersity of [facility] Body height 2022-06-07 21:32:00 157.5 cm [facility] Body weight 2022-06-07 21:32:00 64.547 kg [facility] BMI 2022-06-07 21:32:00 26.03 kg/m2 Universi ty of [facility] Oxygen saturation in 2022-06-07 21:32:00 97 /min University of Arterial blood by [facility] Pulse oximetry Branch WEIGHT 2022-06-01 05:00:00 64.638 kg HEIGHT 2022-05-28 08:00:00 157.5 cm WEIGHT 2022-05-28 08:00:00 64 kg WEIGHT 2022-06-01 05:00:00 64.638 kg HEIGHT 2022-05-28 08:00:00 157.5 cm WEIGHT 2022-05-28 08:00:00 64 kg WEIGHT 2022-06-01 05:00:00 64.638 kg HEIGHT 2022-05-28 08:00:00 157.5 cm WEIGHT 2022-05-28 08:00:00 64 kg Systolic blood 2022-05-25 19:34:00 128 mm[Hg] Univer sity of pressure [facility] Diastolic blood 2022-05-25 19:34:00 54 mm[Hg] Unive rsity of pressure [facility] Heart rate 2022-05-25 19:34:00 77 /min [facility] ty [facility] Body height 2022-05-25 19:34:00 157.5 cm [facility] Body weight 2022-05-25 19:34:00 62.551 kg [facility] BMI 2022-05-25 19:34:00 25.22 kg/m2 [facility] Oxygen saturation in 2022-05-25 19:34:00 95 /min University of Arterial blood by [employer] [place] [facility] Pulse oximetry Branch Systolic blood 2022-05-17 19:02:00 166 mm[Hg] Univer sity of pressure [facility] Diastolic blood 2022-05-17 19:02:00 75 mm[Hg] Unive rsity of pressure [facility] Heart rate 2022-05-17 19:02:00 104 /min [facility] Body temperature 2022-05-17 19:02:00 36.78 Monique [facility] Respiratory rate 2022-05-17 19:02:00 18 /min [facility] ers[facility] Body height 2022-05-17 19:02:00 144.8 cm [facility] Body weight 2022-05-17 19:02:00 64.955 kg [facility] [place] [facility] BMI 2022-05-17 19:02:00 30.99 kg/m2 [facility] Oxygen saturation in 2022-05-17 19:02:00 98 /min University of Arterial blood by [employer] [place] [facility] Pulse oximetry Branch Systolic blood 2022-04-08 19:24:00 134 mm[Hg] Univer sity of pressure [facility] Diastolic blood 2022-04-08 19:24:00 73 mm[Hg] Unive rsity of pressure [facility] Heart rate 2022-04-08 19:24:00 73 /min [facility] [place] [facility] Body height 2022-04-08 19:24:00 157.5 cm [facility] [place] [facility] Body weight 2022-04-08 19:24:00 64.864 kg [facility] [place] [facility] BMI 2022-04-08 19:24:00 26.16 kg/m2 [facility] [place] [facility] Systolic blood 2022-04-11 15:24:00 136 mm[Hg] Univer sity of pressure [facility] Diastolic blood 2022-04-11 15:24:00 76 mm[Hg] Unive rsity of pressure [facility] Heart rate 2022-04-11 15:24:00 83 /min [facility] [place] [facility] Body height 2022-04-11 15:24:00 157.5 cm [facility] [place] [facility] Body weight 2022-04-11 15:24:00 63.504 kg [facility] [place] [facility] BMI 2022-04-11 15:24:00 25.61 kg/m2 [facility] [place] [facility] Oxygen saturation in 2022-04-11 15:24:00 97 /min [facility] Arterial blood by [place] [facility] Pulse oximetry Branch Systolic blood 2022-03-11 20:35:00 136 mm[Hg] Univer sity of pressure [facility] Diastolic blood 2022-03-11 20:35:00 76 mm[Hg] Unive rsity of pressure [facility] Heart rate 2022-03-11 20:33:00 83 /min [facility] ty [facility] Body temperature 2022-03-11 20:33:00 37.11 Monique [facility] [place] [facility] Body height 2022-03-11 20:33:00 157.5 cm [facility] Body weight 2022-03-11 20:33:00 63.504 kg [facility] [place] [facility] BMI 2022-03-11 20:33:00 25.61 kg/m2 [facility] Oxygen saturation in 2022-03-11 20:33:00 97 /min [facility] Arterial blood by [place] [facility] Pulse oximetry Branch Systolic blood 2022-03-11 14:27:00 145 mm[Hg] Univer sity of pressure [facility] Diastolic blood 2022-03-11 14:27:00 68 mm[Hg] Unive rsity of pressure [facility] Heart rate 2022-03-11 14:26:00 78 /min [facility] ty [facility] [place] [facility] Body height 2022-03-11 14:26:00 157.5 cm [facility] Body weight 2022-03-11 14:26:00 61.236 kg [facility] [place] [facility] BMI 2022-03-11 14:26:00 24.69 kg/m2 [facility] ty [facility] Oxygen saturation in 2022-03-11 14:26:00 99 /min University of Arterial blood by [facility] Pulse oximetry Branch Systolic blood 2022-02-25 23:37:00 131 mm[Hg] Univer sity of pressure [facility] Diastolic blood 2022-02-25 23:37:00 85 mm[Hg] Unive rsity of pressure [facility] Heart rate 2022-02-25 23:37:00 70 /min [facility] ty [facility] Body temperature 2022-02-25 23:37:00 36.83 Monique [facility] [place] [facility] Respiratory rate 2022-02-25 23:37:00 18 /min [facility] [place] [facility] Body height 2022-02-25 23:37:00 157.5 cm [facility] Body weight 2022-02-25 23:37:00 58.968 kg [facility] BMI 2022-02-25 23:37:00 23.78 kg/m2 [facility] Oxygen saturation in 2022-02-25 23:37:00 99 /min University of Arterial blood by [facility] Pulse oximetry Branch Systolic blood 2022-01-21 21:34:00 133 mm[Hg] Univer sity of pressure [facility] Diastolic blood 2022-01-21 21:34:00 75 mm[Hg] Unive rsity of pressure [facility] Heart rate 2022-01-21 21:34:00 80 /min [facility] ty [facility] Body temperature 2022-01-21 21:34:00 36.5 Monique [facility] Body height 2022-01-21 21:34:00 144.8 cm [facility] Body weight 2022-01-21 21:34:00 62.596 kg [facility] BMI 2022-01-21 21:34:00 29.86 kg/m2 [facility] Oxygen saturation in 2022-01-21 21:34:00 96 /min University of Arterial blood by [facility] Pulse oximetry Branch Systolic blood 2021-12-24 20:33:00 135 mm[Hg] Univer sity of pressure [facility] Diastolic blood 2021-12-24 20:33:00 65 mm[Hg] Unive rsity of pressure [facility] Heart rate 2021-12-24 20:33:00 73 /min [facility] ty [facility] Body temperature 2021-12-24 20:33:00 36.56 Monique [facility] Body height 2021-12-24 20:33:00 144.8 cm [facility] Body weight 2021-12-24 20:33:00 62.596 kg [facility] BMI 2021-12-24 20:33:00 29.86 kg/m2 [facility] Oxygen saturation in 2021-12-24 20:33:00 96 /min University of Arterial blood by [facility] Pulse oximetry Branch Systolic blood 2021-12-03 18:46:00 148 mm[Hg] Univer sity of pressure [facility] Diastolic blood 2021-12-03 18:46:00 70 mm[Hg] Unive rsity of pressure [facility] Heart rate 2021-12-03 18:45:00 97 /min [facility] ty [facility] Body temperature 2021-12-03 18:45:00 37.33 Monique [facility] Body height 2021-12-03 18:45:00 144.8 cm [facility] Body weight 2021-12-03 18:45:00 62.143 kg [facility] BMI 2021-12-03 18:45:00 29.65 kg/m2 [facility] Oxygen saturation in 2021-12-03 18:45:00 96 /min University of Arterial blood by [facility] Pulse oximetry Branch Systolic blood 2021-11-26 20:46:00 158 mm[Hg] Univer sity of pressure [facility] Diastolic blood 2021-11-26 20:46:00 72 mm[Hg] Unive rsity of pressure [facility] Heart rate 2021-11-26 20:46:00 98 /min [facility] ty [facility] Body height 2021-11-26 20:46:00 160 cm [facility] Body weight 2021-11-26 20:46:00 61.689 kg [facility] BMI 2021-11-26 20:46:00 24.09 kg/m2 [facility] Systolic blood 2021-11-02 18:10:00 152 mm[Hg] Univer sity of pressure [facility] Diastolic blood 2021-11-02 18:10:00 73 mm[Hg] Unive rsity of pressure [facility] Heart rate 2021-11-02 18:10:00 83 /min [facility] ty [facility] Body height 2021-11-02 18:10:00 160 cm [facility] Body weight 2021-11-02 18:10:00 61.689 kg [facility] ty [facility] BMI 2021-11-02 18:10:00 24.09 kg/m2 [facility] Oxygen saturation in 2021-11-02 18:10:00 95 /min University of Arterial blood by [facility] Pulse oximetry Branch Systolic blood 2021-10-25 20:11:00 138 mm[Hg] Univer sity of pressure [facility] Diastolic blood 2021-10-25 20:11:00 64 mm[Hg] Unive rsity of pressure [facility] Heart rate 2021-10-25 20:11:00 64 /min [facility] ty [facility] Body temperature 2021-10-25 20:11:00 36.5 Monique [facility] Body height 2021-10-25 20:11:00 160 cm [facility] Body weight 2021-10-25 20:11:00 61.689 kg [facility] BMI 2021-10-25 20:11:00 24.09 kg/m2 [facility] Oxygen saturation in 2021-10-25 20:11:00 96 /min [facility] Arterial blood by [place] [employer] [facility] Pulse oximetry Branch Systolic blood 2021-07-09 21:36:00 132 mm[Hg] Univer sity of pressure [facility] Diastolic blood 2021-07-09 21:36:00 65 mm[Hg] Unive rsity of pressure [facility] Body temperature 2021-07-09 21:36:00 36.33 Monique [facility] 2021-07-09 21:10:00 73 /min Universi ty [facility] Body height 2021-07-09 21:10:00 142.2 cm Universi ty [facility] Body weight 2021-07-09 21:10:00 61.598 kg Universi ty [facility] BMI 2021-07-09 21:10:00 30.45 kg/m2 [facility] Oxygen saturation in 2021-07-09 21:10:00 96 /min [facility] Arterial blood by [facility] Pulse oximetry Branch HEIGHT 2019-07-08 00:00:00 147.3 cm WEIGHT 2019-07-08 00:00:00 57.743 kg Oxygen saturation in 2022-06-01 14:45:00 93 /min [facility] Arterial blood by Medical nter Pulse oximetry Heart rate 2022-06-01 12:37:00 80 /min [facility] Body temperature 2022-06-01 10:47:08 36.56 Monique [facility] Systolic blood 2022-06-01 10:46:30 135 mm[Hg] [facility] Diastolic blood 2022-06-01 10:46:30 63 mm[Hg] [facility] Respiratory rate 2022-06-01 09:00:00 17 /min [facility] Body weight 2022-06-01 05:00:00 64.638 kg [facility] BMI 2022-06-01 05:00:00 26.06 kg/m2 [facility] Body height 2022-05-28 08:00:00 157.5 cm [facility] pulse rate 2019-07-01 08:14:01 80 /min [facility] blood pressure, 2019-07-01 08:14:01 71 mm[Hg] [facility] blood pressure, 2019-07-01 08:14:01 171 mm[Hg] [facility] pulse rate 2019-06-25 09:35:00 76 /min [facility] blood pressure, 2019-06-25 09:35:00 77 mm[Hg] [facility] diastolic Health blood pressure, 2019-06-25 09:35:00 153 mm[Hg] [facility] Procedures Procedure Date / Time Performing Clinician Source Performed FLU 2022-11-11 20:48:37 [facility] VACC(),65+YR,0.5 Medica l Branch ML,IM,ADJUVANTED,QUAD(FLU AD) CBC WITH DIFF 2022-09-08 16:33:00 [facility] Branch COMP. METABOLIC PANEL 2022-09-08 16:33:00 [facility] ([id number]) Medical Branch N-TERMINAL PRO-BNP 2022-09-08 16:33:00 Ceci Lo [facility] HOME HEALTH - OTHER 2022-08-08 05:01:00 Doctor López [facility] Name Medical [place] EXTERNAL PROVIDER RECORDS 2022-07-21 05:01:00 Doctor López [facility] [place] Medical [facility] HOME HEALTH - OTHER 2022-07-11 05:01:00 Doctor López [facility] Name Medical Branch [facility] - OTHER 2022-07-01 05:01:00 [facility] [place] Medical [facility] - OTHER 2022-06-28 05:01:00 Doctor [facility] Name Medical Branch HOME HEALTH - OTHER 2022-06-24 05:01:00 Doctor López [facility] Name Medical [place] NM MYOCARDIUM PERFUSION 2022-06-23 16:20:00 Ceci Lo [facility] STRESS AND REST Medical Branch NUCLEAR STRESS TEST 2022-06-23 16:20:00 Ceci Lo [facility] CARDIOLOGY (DO NOT SCHED) Medica l Branch NM MYOCARDIUM PERFUSION 2022-06-23 16:20:00 Ceci Lo [facility] STRESS AND REST Medical Branch NUCLEAR STRESS TEST 2022-06-23 16:20:00 Lo, Sendil [facility] CARDIOLOGY (DO NOT SCHED) Medica l Branch NM MYOCARDIUM PERFUSION 2022-06-23 16:20:00 Lo, Sendil [facility] STRESS AND REST Medical Branch NUCLEAR STRESS TEST 2022-06-23 16:20:00 Lo, Sendil [facility] CARDIOLOGY (DO NOT SCHED) Medica l Branch NM MYOCARDIUM PERFUSION 2022-06-23 16:20:00 Lo, Sendil [facility] STRESS AND REST Medical Branch NUCLEAR STRESS TEST 2022-06-23 16:20:00 Lo, Sendil [facility] CARDIOLOGY (DO NOT SCHED) Medica l Branch HOME HEALTH - OTHER 2022-06-21 05:01:00 Doctor Alejo López [facility] Name Medical [place] BASIC METABOLIC PANEL 2022-06-11 13:49:00 Lo, [facility] (NA, K, CL, CO2, GLUCOSE, [facility] l Branch BUN, CREATININE, CA) N-TERMINAL PRO-BNP 2022-06-11 13:49:00 Lo, Sendil [facility] COMP. METABOLIC PANEL 2022-06-10 14:37:00 Teresita [id number] Medical [place] N-TERMINAL PRO-BNP 2022-06-10 14:37:00 Lo, [facility] HEALTH - OTHER 2022-06-07 05:01:00 Doctor Alejo López [facility] Name Medical [place] POCT-GLUCOSE METER 2022-06-01 10:49:00 Valerie Goodwin [facility] POCT-GLUCOSE METER 2022-06-01 08:17:00 Valerie Goodwin [facility] BASIC METABOLIC PANEL 2022-06-01 04:34:00 [facility] W/PLT COUNT & AUTO 2022-06-01 04:34:00 [facility] 2022-06-01 04:34:00 Prashanth, [facility] CBC W/PLT COUNT & AUTO 2022-06-01 04:34:00 Prashanth [facility] POCT-GLUCOSE METER 2022-05-31 22:07:00 [facility] POCT-GLUCOSE METER 2022-05-31 18:23:00 Rad[facility] POCT-GLUCOSE METER 2022-05-31 12:07:00 Rad[facility] POCT-GLUCOSE METER 2022-05-31 08:50:00 Radha [facility] BASIC METABOLIC PANEL 2022-05-31 05:26:00 Prashanth [facility] CBC W/PLT COUNT & AUTO 2022-05-31 05:26:00 Prashanth [facility] MAGNESIUM 2022-05-31 05:26:00 Prashanth [facility] PHOSPHORUS 2022-05-31 05:26:00 Prashanth [facility] CBC W/PLT COUNT & AUTO 2022-05-31 05:26:00 Prashanth [facility] POCT-GLUCOSE METER 2022-05-30 20:14:00 Radha [facility] POCT-GLUCOSE METER 2022-05-30 17:59:00 Radha [facility] POCT-GLUCOSE METER 2022-05-30 13:04:00 Radha [facility] POCT-GLUCOSE METER 2022-05-30 08:38:00 Radha [facility] BASIC METABOLIC PANEL 2022-05-30 04:57:00 Prashanth [facility] CBC W/PLT COUNT & AUTO 2022-05-30 04:57:00 Prashanth [facility] MAGNESIUM 2022-05-30 04:57:00 Prashanth [facility] PHOSPHORUS 2022-05-30 04:57:00 Prashanth [facility] CBC W/PLT COUNT & AUTO 2022-05-30 04:57:00 Prashanth [facility] POCT-GLUCOSE METER 2022-05-30 00:09:00 [facility] POCT-GLUCOSE METER 2022-05-29 16:43:00 [facility] POCT-GLUCOSE METER 2022-05-29 14:48:00 [facility] BASIC METABOLIC PANEL 2022-05-29 03:47:00 [facility] CBC W/PLT COUNT & AUTO 2022-05-29 03:47:00 Prashanth [facility] MAGNESIUM 2022-05-29 03:47:00 Prashanth [facility] PHOSPHORUS 2022-05-29 03:47:00 [facility] CBC W/PLT COUNT & AUTO 2022-05-29 03:47:00 Prashanth [facility] POCT-GLUCOSE METER 2022-05-28 23:12:00 Sharyn Quispe [facility] HIGH SENSITIVITY TROPONIN 2022-05-28 18:25:00 Prashanth [place] POCT-GLUCOSE METER 2022-05-28 17:04:00 Sharyn Quispe [facility] 2D ECHO W/ DOPPLER 2022-05-28 14:38:34 [facility] (CW/PW/COLOR) [place] POCT-GLUCOSE METER 2022-05-28 12:00:00 Kayla Hui [facility] HIGH SENSITIVITY TROPONIN 2022-05-28 11:02:00 [facility] TSH/FREE T4 IF INDICATED 2022-05-28 11:02:00 Kayla Hui [facility] CBC W/PLT COUNT & AUTO 2022-05-28 11:02:00 Manuelte Kayla Roman [facility] DIFFERENTIAL Center CBC W/PLT COUNT & AUTO 2022-05-28 11:02:00 Moira Kayla Roman [facility] RESPIRATORY PANEL 2022-05-28 09:47:00 Prashanth [facility] PROCALCITONIN 2022-05-28 09:43:00 Prashanth [facility] HIGH SENSITIVITY TROPONIN 2022-05-28 09:43:00 Prashanth [place] B-TYPE NATRIURETIC FACTOR 2022-05-28 09:43:[address] [facility] [place] HEMOGLOBIN A1C 2022-05-28 09:43:00 Prashanth [facility] ECG 12-LEAD 2022-05-28 08:36:59 Prashanth [facility] ECG 12-LEAD 2022-05-28 08:36:59 Unknown, Hl7 Doctor [facility] ECG 12-LEAD 2022-05-28 08:36:59 Unknown, Hl7 Doctor [facility] XR CHEST 1 VIEW PORTABLE 2022-05-28 08:33:00 Prashanth [facility] BLOOD GAS, ARTERIAL 2022-05-28 08:28:00 Prashanth [facility] COMPREHENSIVE METABOLIC 2022-05-28 08:27:00 Prashanth [facility] PANEL Center MAGNESIUM 2022-05-28 08:27:00 Prashanth [facility] PHOSPHORUS 2022-05-28 08:27:00 Prashanth [facility] LACTIC ACID, VENOUS 2022-05-28 08:27:00 [facility] PROT[facility] TIME/INR 2022-05-28 08:27:00 Prashanth [facility] FIBRINOGEN 2022-05-28 08:27:00 [facility] EKG-SCANNED 2022-05-28 00:00:00 Provider, Default [facility] HB ECG ROUTINE & RHYTHM 2022-05-25 19:30:49 Ceci Lo [facility] STRIP Medical Branch PNEUMOCOCCAL 20 CONJUGATE 2022-05-17 19:39:37 Angela Cunningham [facility] (PREVNAR 20) VACCINE Medical Bra [facility] ASSIGNMENT OF BENEFITS 2022-05-17 18:46:13 Doctor Unassigned, [facility] Name Medical Branch EXTERNAL PROVIDER RECORDS 2022-04-12 06:01:00 Doctor Rene [facility] [place] Medical [facility] REFERRAL- 2022-04-03 06:01:00 Doctor Rene, [facility] REQUEST/RESPONSE [facility] CBC WITH DIFF 2022-03-11 21:42:[address] [facility] URINE CULTURE 2022-03-11 21:42:00 Chary Donald [facility] REFERRAL- 2022-02-23 06:01:00 Doctor Rene, [facility] REQUEST/RESPONSE [place] [facility] [place] EMERGENCY SERVICES 2021-12-31 06:01:00 Doctor Rene, [facility] AGREEMENTS AND [place] [facility] [place] AUTHORIZATIONS FLU 2021-12-24 21:05:18 Chary Donald [facility] VACC(),65+YR,0.5 Medica l Branch ML,IM,ADJUVANTED,QUAD(FLU AD) MR BRAIN WO CONTRAST 2021-11-19 15:41:00 Won Matt Un [facility] EXTERNAL PROVIDER RECORDS 2021-11-18 05:01:00 Doctor López [facility] [place] Medical [place] EXTERNAL PROVIDER RECORDS 2021-11-01 05:01:00 Doctor Ortizregine [facility] [place] Medical Branch AUTHORIZATION TO RELEASE 2021-10-25 05:01:00 Doctor López [facility] PHI TO [facility] [place] [facility] [place] URINALYSIS 2021-09-03 13:22:00 Chary Donald [facility] LIPASE 2021-09-03 13:08:00 Chary Donald [facility] COMP. METABOLIC PANEL 2021-09-03 13:08:00 Chary Donald [facility] ([id number]) Medical Branch CBC WITH DIFF 2021-09-03 13:08:00 Chary Donald [facility] Plan of Care Planned Activity Planned Date [...] DXA [facility] Test 00:00:00 SCAN] [facility] Center Future Scheduled 1936 DXA SCAN [code = DXA [facility] Test 00:00:00 SCAN] [facility] Center Future Scheduled 1936 DXA SCAN [code = DXA [facility] Test 00:00:00 SCAN] [facility] Center Future Scheduled 1936 DXA SCAN [code = DXA [facility] Test 00:00:00 SCAN] [facility] Center Future Scheduled 1936 DXA SCAN [code = DXA [facility] Test 00:00:00 SCAN] [facility] Center Future Scheduled 1936 DXA SCAN [code = DXA [facility] Test 00:00:00 SCAN] [facility] Center Future Scheduled 1936 DXA SCAN [code = DXA [facility] Test 00:00:00 SCAN] [facility] Center Encounters Start End Encounter Admission Attending Care Care Encounter Source Date/Time Date/Time Type Type Clinicians Facility Department ID 2020-11-17 Inpatient ER [facility] [id number] [facility] 14:[facility]:09 LILIANA 2023-03-23 2023-03-23 [id number] Univers 14:30:00 14:30:00 karina [facility] 2023-01-11 2023-01-11 Outpatient R ANGELA CUNNINGHAM [facility] [id number] Univers 16:20:00 16:20:00 ANGELA CUNNINGHAM [facility] 2022-12-28 2022-12-28 [facility] [id number] Univers 16:00:00 16:00:00 karina [facility] 2022-12-26 2022-12-26 Outpatient R TERESITA [facility] [id number] Univers 10:00:00 10:00:00 SENDIL karen [facility] 2022-12-12 2022-12-12 Outpatient R ANGELA CUNNINGHAM [facility] [id number] Univers 10:20 10:20:00 ANGELA CUNNINGHAM karen [facility] 2022-12-05 2022-12-05 [facility] [id number] Univers 15:30:00 16:43:04 karina [facility] 2022-12-05 2022-12-05 Office [facility] 1.2.840.114 [id number] Univers 15:30:00 16:43:04 Visit Mateo CARROLL 350.1.13.10 itBerny HANNON 4.2.7.2.686 [place] kerri NIÑO [id number] [address] OFFICE BUILDING 2022-12-02 2022-12-02 Outpatient R ANGELA CUNNINGHAM [facility] [id number] Univers 16:20:00 17:22:13 ANGELA CUNNINGHAM [facility] 2022-12-02 2022-12-02 [facility] 1.2.840.114 [id number] Univers 16:20:00 17:22:13 Visit [facility] 350.1.13.10 itEmilia 4.2.7.2.686 [place]ilo as KRZYSZTOF?BLEA [id number] [address] MEDICAL OFFICE BUILDING 2022-12-01 2022-12-01 Outpatient R ANGELA CUNNINGHAM [facility] [id number] Univers 15:20:00 15:20:00 ANGELA CUNNINGHAM [facility] 2022-11-29 2022-11-29 [facility] 1.2.840.114 [id number] Univers 00:00:00 00:00:00 [facility] 350.1.13.10 ity of [place] 4.2.7.2.686 Kilo as KRZYSZTOF?BLEA [id number] [address] MEDICAL OFFICE [facility] 2022-11-28 2022-11-28 [facility] 1.2.840.114 [id number] [facility] 00:00:00 00:00:00 Angela HEALTH 350.1.13.10 ity of [facility] 4.2.7.2.686 Kilo as KRZYSZTOF?BLEA [id number] [address] OFFICE [facility] 2022-11-11 2022-11-11 Musical String Maker Lab, Ang - [facility] 1.2.840.1 [id number] [facility] 16:15:00 16:26:09 Visit Angela Cunningham [facility] 350.1.13.10 ity of [place] 4.2.7.2.686 Kilo as KRZYSZTOF?BLEA [id number] [facility] MARIZA 353 [facility] OFFICE [facility] 2022-11-11 2022-11-11 Outpatient R TASIA CUNNINGHAMINE [facility] [id number] Univers 14:20:00 16:01:27 ANGELA CUNNINGHAM [facility] 2022-11-11 2022-11-11 Office [facility] 1.2.840.114 [id number] [facility] 14:20:00 16:01:27 Visit [facility] 350.1.13.10 ity of [place] 4.2.7.2.686 Kilo as KRZYSZTOF?BLEA [phone] [facility] MARIZ[address] MEDICAL OFFICE [facility] 2022-11-03 2022-11-03 Telephone [facility] [id number] [facility] 00:00:00 00:00:00 Angela HEALTH 350.1.13.10 ity of [place] 4.2.7.2.686 Kilo as KRZYSZTOF?BLEA [id number] [facility] MARIZAEY 044 Branch MEDICAL OFFICE BUILDING 2022-11-01 2022-11-01 Outpatient R ANGELA CUNNINGHAM [facility] [id number] Univers 10:00:00 10:00:00 ANGELA CUNNINGHAM [facility] 2022-10-28 2022-10-28 Telephone [facility] 1.2.027.545 [id number] Univers 00:00:00 00:00:00 Sendbekah ALBRECHT 350.1.13.10 ity of [place] PROF[place] [id number] Mi dical KIT 9 [facility] 2022-10-26 2022-10-26 Musical String Maker 2, Adc Lab [facility] 1..840.114 [id number] Univers 11:15:00 11:30:00 Visit Ceci Lo 350.1.13. 10 it[place] of [place].2.[place] [id number] Mi diccleopatra PANTOJA 353 [facility] 2022-10-26 2022-10-26 Outpatient R [facility] [id number] Univers 10:00:00 10:48:18 SENDBEKAH collins [facility] 2022-10-26 2022-10-26 Office [facility] 1.2.840.114 [id number] Univers 10:00:00 10:48:18 Visit Ceci ALBRECHT 350.1.13.10 ity [facility] 4.2.7.2.[place] PROF[place] [id number] Mi dic[address] 2022-10-07 2022-10-07 Outpatient R ANGELA CUNNINGHAM [facility] [id number] Univers 10:20:00 10:20:00 ANGELA CUNNINGHAM [facility] 2022-09-27 2022-09-27 Refill [facility] 1.2.840.114 [id number] Univers 00:00:00 00:00:00 [facility] 350.1.13.10 ity of [place] 4.2.7.2.686 Kilo as KRZYSZTOF?BLEA [id number] Mi salvatore ESTRADA 044 [facility] OFFICE [facility] 2022-09-22 2022-09-22 Outpatient R TERESITA [facility] [id number] Univers 15:00:00 16:06:41 SENDIL [facility] 2022-09-22 2022-09-22 Office [facility] 1.2.840.114 [id number] Univers 15:00:00 16:06:41 Visit Sendbekah ALBRECHT 350.1.13.10 ity of [place] [id number] Mi salvatore NAL 059 [facility] 2022-09-13 2022-09-13 Patient Doctor [facility] 1.2.840.114 [id number] Univers 00:00:00 00:00:00 Secure Msg [facility], [facility] 350.1.13.10 ity of [place] 4.2.7.2.686 Kilo as KRZYSZTOF?BLEA [id number] Mi salvatore ESTRADA 044 [facility] OFFICE [facility] 2022-09-12 2022-09-12 Telephone [facility] 1.2.686.523 [id number] Univers 00:00:00 00:00:00 Sendbekah ALBRECHT 350.1.13.10 ity of [place] [id number] Mi salvatore NAL 059 [facility] 2022-09-08 2022-09-08 Musical String Maker Lab, Ang - Db [facility] 1.2.840.1 14 [id number] Univers 11:30:00 11:41:[address] [facility] 350.1.13.10 ity of [place] 4.2.7.2.686 Kilo as KRZYSZTOF?BLEA [phone] Mi salvatore ESTRADA 353 [facility] OFFICE [facility] 2022-09-08 2022-09-08 Outpatient R ANGELA CUNNINGHAM [facility] [id number] Univers 10:00:00 11:13:59 ANGELA CUNNINGHAM [facility] 2022-09-08 2022-09-[address] [facility] 1.2.840.114 [id number] Univers 10:00:00 11:13:59 Visit [facility] 350.1.13.10 ity of [facility] 4.2.7.2.686 Kilo as KRZYSZTOF?BLEA [id number] [address] OFFICE [facility] 2022-08-09 2022-08-09 Outpatient R TREESITA [facility] [id number] Univers 13:00:00 14:10:05 SENDIL ity of [facility] 2022-08-09 2022-08-09 Office [facility] 1.2.840.114 [id number] Univers 13:00:00 14:10:05 Visit [facility]ah [facility] 350.1.13.10 [place].2.[place] DAGMARIO [id number] [facility] 059 [facility] 2022-08-09 2022-08-09 Office [facility] 1.2.840.114 [id number] Univers 10:00:00 11:36:08 Visit [facility] 350.1.13.10 ity of [place] 4.2.7.2.686 Kilo as KRZYSZTOF?BLEA [id number] [address] OFFICE [facility] 2022-08-08 2022-08-08 Orders Doctor LILLIANA 1.2.840.114 [id number] Univers 00:00:00 00:00:00 Only Unassigned, MACKENZIE 350.1.13.10 ity of [place] [facility] 4.2.7.2.686 Kilo as [id number] [address] 2022-08-04 2022-08-04 Refill [facility] 1.2.840.114 [id number] Univers 00:00:00 00:00:00 Angela HEALTH 350.1.13.10 ity of [facility] 4.2.7.2.686 Kilo as KRZYSZTOF?BLEA [id number] [address] MEDICAL OFFICE BUILDING 2022-07-27 2022-07-27 Telephone [facility] 1.2.444.903 [id number] Univers 00:00:00 00:00:00 Sendbekah ALBRECHT 350.1.13.10 ity [address] [facility] 4.2.7.2.[place] [phone] Mi dical NAL 059 [facility] 2022-07-21 2022-07-21 Orders Doctor LILLIANA 1.2.840.114 [id number] Univers 00:00:00 00:00:00 Only Unassigned, MACKENZIE 350.1.13.10 ity of [place] [facility] 4.2.7.2.686 Kilo as [id number] [address] 2022-07-18 2022-07-18 Refill [facility] 1.2.840.114 [id number] Univers 00:00:00 00:00:00 [facility] 350.1.13.10 ity of [place] 4.2.7.2.686 Kilo as KRZYSZTOF?BLEA [id number] [address] OFFICE [facility] 2022-07-13 2022-07-13 Patient [facility] 1.2.840.114 [id number] Univers 00:00:00 00:00:00 Secure Msg [facility] 350.1.13.10 ity of [place] 4.2.7.2.686 Kilo as KRZYSZTOF?BLEA [id number] [address] OFFICE [facility] 2022-07-12 2022-07-12 Outpatient [facility] [id number] Univers 14:00:00 16:32:11 SENDIL ity [facility] 2022-07-12 2022-07-12 Office [facility] 1.2.840.114 [id number] Univers 14:00:00 16:32:11 Visit Ceci ALBRECHT 350.1.13.10 ity of [place] [id number] Mi dicnh NAL [address] [place] [address] 2022-07-12 2022-07-12 Telephone [facility] [id number] [id number] Univers 00:00:00 00:00:00 Sendbekah ALBRECHT 350.1.13.10 ity of [place].2.[place] [id number] [facility] 059 [facility] 2022-07-11 2022-07-11 Orders Doctor LILLIANA 1.2.840.114 [id number] Univers 00:00:00 00:00:00 Only Unassigned, MACKENZIE 350.1.13.10 ity of [place] [facility] 4.2.7.2.686 Kilo as [id number] [address] 2022-07-08 2022-07-08 Musical String Maker Lab, Ang - [facility] 1.2.840.1 14 [id number] Univers 09:00:00 09:15:00 Visit Octavio [facility] 350.1.13.10 ity of [place] 4.2.7.2.686 Kilo as KRZYSZTOF?BLEA [id number] [facility] [address] [place] MEDICAL OFFICE [facility] 2022-07-08 2022-07-08 Outpatient R ANGELA CUNNINGHAM [facility] [id number] Univers 09:00:00 09:00:00 ANGELA CUNNINGHAM [facility] 2022-07-08 2022-07-08 [facility] 1.2.840.114 [id number] Univers 00:00:00 00:00:00 [facility] [id number] ity of [place] 4.2.7.2.686 Kilo as KRZYSZTOF?BLEA [id number] [facility] [address] MEDICAL OFFICE [facility] 2022-07-01 2022-07-01 Outpatient R ANGELA CUNNINGHAM [facility] [id number] Univers 11:20:00 11:20:00 ANGELA CUNN[place] [facility] 2022-07-01 2022-07-01 Orders Doctor TIJERINA [id number] [id number] Univers 00:00:00 00:00:00 Only Unassigned, MACKENZIE [id number] [facility] [place] [facility] [id number] Kilo as [id number] [address] 2022-06-28 2022-06-28 Outpatient R ANGELA CUNNINGHAM [facility] [id number] Univers 09:20:00 10:19:27 [facility]22-06-28 Office [facility] 1.2.840.114 [id number] Univers 09:20:00 10:19:27 Visit [facility] [id number] [place] 4.2.7.2.686 Kilo as KRZYSZTOF?BLEA [phone] [address] OFFICE [facility] 2022-06-28 2022-06-28 Telephone [facility] 1.2.418.644 [id number] Univers 00:00:00 00:00:00 [facility] 350.1.13.10 ity of [place] 4.2.7.2.686 Kilo as KRZYSZTOF?BLEA [id number] [address] OFFICE [facility] 2022-06-28 2022-06-28 Orders Doctor LILLIANA 1.2.840.114 [id number] Univers 00:00:00 00:00:00 Only Unassigned, MACKENZIE 350.1.13.10 ity of [place] [facility] 4.2.7.2.686 Kilo as [phone] [address] 2022-06-24 2022-06-24 Telephone [facility] 1.2.585.725 [id number] Univers 00:00:00 00:00:00 Ceci ALBRECHT 350.1.13.10 ity [facility] 4.2.7.2.[place] [id number] [facility] 059 [facility] 2022-06-24 2022-06-24 Orders Doctor LILLIANA 1.2.840.114 [id number] Univers 00:00:00 00:00:00 Only Unassigned, MACKENZIE 350.1.13.10 ity of [place] [facility] 4.2.7.2.686 Kilo as [id number] [address] 2022-06-23 2022-06-[address] [facility] 1.2.840.114 [id number] Univers 08:13:16 23:59:00 Encounter Ceci ALBRECHT 350.1.13.10 ity [facility] 4.2.7.2.686 [facility] [id number] [facility] [address] [place] 2022-06-23 2022-06-[address] [facility] 1.2.840.114 [id number] Univers 08:12:54 08:12:54 Encounter Sendil Courtney ALBRECHT 350.1.13.10 ity of [facility] 4.2.7.2.686 [facility] [id number] [place] 841395 [place] 2022-06-23 2022-06-[address] [facility] 1.2.840.114 [id number] Univers 08:12:41 08:12:41 Encounter Sendil Courtney ALBRECHT 350.1.13.10 ity of [facility] 4.2.7.2.686 [facility] [id number] [place] 841395 [place] 2022-06-23 2022-06-23 Outpatient R [facility] [id number] Univers 08:12:25 08:11:00 SENDIL ity of [facility] 2022-06-23 2022-06-[address] [facility] 1.2.840.114 [id number] Univers 08:00:00 08:11:00 Encounter Ceci ALBRECHT 350.1.13.10 ity of [facility] 4.2.7.2.686 [facility] [id number] [address] 2022-06-21 2022-06-21 Outpatient R [facility] [id number] Univers 09:00:00 09:00:00 SENDIL ity of [facility] 2022-06-21 2022-06-21 Telephone [facility] 1.2.456.823 [id number] Univers 00:00:00 00:00:00 Sendbekah ALBRECHT 350.1.13.10 ity [facility] 4.2.7.2.686 [facility] PROFESSIO [phone] Mi dical [facility] 059 [facility] 2022-06-21 2022-06-21 Orders Doctor TIJERINA 1.2.840.114 [id number] Univers 00:00:00 00:00:00 Only Unassigned, MACKENZIE 350.1.13.10 ity of [place] [facility] 4.2.7.2.686 Kilo as [phone] [address] 2022-06-20 2022-06-20 Musical String Maker Kristy [facility] Main [facility] 1.2.8 40.114 [id number] Univers 07:45:00 08:00:00 Visit Ceci Lo 350.1.13. 10 ity of [facility] 4.2.7.2.[place] [id number] [facility] 353 [facility] 2022-06-20 2022-06-20 Outpatient R TERESITA [facility] [id number] Univers 07:45:00 07:45:00 SENDIL ity [facility] 2022-06-16 2022-06-16 Telephone [facility] 1.2.104.510 [id number] Univers 00:00:00 00:00:00 Ceci ALBRECHT 350.1.13.10 ity of [place].2.[place] [id number] Mi dicnh NAL 9 [facility] 2022-06-16 2022-06-16 Telephone [facility] 1.2.410.779 [id number] Univers 00:00:00 00:00:00 Ceci ALBRECHT 350.1.13.10 ity of [facility] 4.2.7.2.[place] [id number] Mi dical NAL 9 [facility] 2022-06-15 2022-06-15 Telephone [facility] 1.2.901.794 [id number] Univers 00:00:00 00:00:00 Ceci ALBRECHT 350.1.13.10 ity of [facility] 4.2.7.2.[place] [id number] Mi dical NAL 9 [facility] 2022-06-13 2022-06-13 Outpatient R TERESITA [facility] [id number] Univers 15:30:00 15:30:00 SENDIL ity [facility] 2022-06-13 2022-06-13 Telephone [facility] 1.2.068.671 [id number] Univers 00:00:00 00:00:00 Sendbekah ALBRECHT 350.1.13.10 ity [address] [facility] 4.2.7.2.686 [place] [phone] [facility] 059 [facility] 2022-06-11 2022-06-11 Musical String Maker Abdiel, Adc Lab Main [facility] 1.2.8 40.114 [id number] Univers 08:30:00 08:45:00 Visit Ceci Lo 350.1.13. 10 ity of [place].2.7.2.[place] [id number] [facility] 353 [facility] 2022-06-11 2022-06-11 Outpatient R TERESITA [facility] [id number] Univers 08:30:00 08:30:00 SENDIL ity [facility] 2022-06-10 2022-06-10 Musical String Maker Abdiel, Adc Lab Main [facility] 1.2.8 40.114 [id number] Univers 09:15:00 09:30:00 Visit Ceci Lo 350.1.13. 10 ity of [place].7.2.[place] [id number] [facility] 353 [facility] 2022-06-10 2022-06-10 Outpatient R TERESITA [facility] [id number] Univers 09:15:00 09:15:00 SENDIL ity [facility] 2022-06-10 2022-06-10 Refill [facility] 1.2.840.114 [id number] Univers 00:00:00 00:00:00 [facility] 350.1.13.10 ity of [place] 4.2.7.2.686 Kilo as KRZYSZTOF?BLEA [id number] Mi salvatore [address] 2022-06-10 2022-06-10 Telephone [facility] 1.2.697.454 [id number] Univers 00:00:00 00:00:00 Sendil Courtney ALBRECHT 350.1.13.10 ity [address] [facility] 4.2.7.2.686 [place] [phone] [address] 2022-06-09 2022-06-09 Outpatient R TERESITA [facility] [id number] Univers 13:30:00 14:26:56 SENDIL ity [facility] 2022-06-09 2022-06-09 Office [facility] 1.2.840.114 [id number] Univers 13:30:00 14:26:56 Visit Sendbekah Courtney [facility] 350.1.13.10 [place].2.[place] [id number] [address] 2022-06-08 2022-06-08 Patient [facility] 1.2.840.114 [id number] Univers 00:00:00 00:00:00 Outreach [facility] 350.1.13.10 i ty of [place] 4.2.7.2.686 Kilo as KRZYSZTOF?BLEA [id number] [address] OFFICE [facility] 2022-06-07 2022-06-07 Outpatient R ANGELA CUNNINGHAM [facility] [id number] Univers 16:20:00 17:24:14 ANGELA CUNNINGHAM [facility] 2022-06-07 2022-06-07 Office [facility] 1.2.840.114 [id number] Univers 16:20:00 17:24:14 Visit [facility] 350.1.13.10 ity of [place] 4.2.7.2.686 Kilo as KRZYSZTOF?BLEA [id number] [address] OFFICE [facility] 2022-06-07 2022-06-07 Telephone [facility] 1.2.938.771 [id number] Univers 00:00:00 00:00:00 [facility] 350.1.13.10 ity of [place] 4.2.7.2.686 Kilo as KRZYSZTOF?BLEA [id number] [address] OFFICE [facility] 2022-06-07 2022-06-07 Orders Doctor LILLIANA 1.2.840.114 [id number] Univers 00:00:00 00:00:00 Only Unassigned, MACKENZIE 350.1.13.10 [facility] 4.2.7.2.686 Kilo as [id number] [address] 2022-06-02 2022-06-02 Outpatient R ANGELA CUNNINGHAM [facility] [id number] [facility] 14:20:00 14:20:00 ANGELA CUNNIGNHAM [facility] 2022-05-28 2022-06-01 [facility] [id number] 07:43:00 15:42:00 Encounter Kayla HuiU[facility] Catherine Garcia Kinjal M 2022-05-28 2022-06-01 Hospital [facility] [id number] 07:43:00 15:42:00 Encounter Kayla HuiUsc [facility] Catherine Garcia Kinjal M 2022-05-28 2022-06-01 Inpatient [facility] Medical ICU 20 [id number] [facility] 07:43:00 15:42:00 VALERIE 2022-06-01 2022-06-01 Outpatient Braulio LO [facility] [id number] Univers 15:30:00 15:30:00 SENDIL ity [facility] 2022-05-28 2022-05-28 Travel [facility] [id number] [facility] 00:[facility] 00:00:00 [facility] 2022-05-28 2022-05-28 Orders [facility] [id number] 00:00:00 00:00:00 Only [facility] 2022-05-28 2022-05-28 Travel [facility] [id number] [facility] 00:[facility] 00:00:00 [facility] 2022-05-28 2022-05-28 Orders [facility] [id number] 00:00:00 00:00:00 Only [facility] 2022-05-25 2022-05-25 Outpatient R TERESITA [facility] [id number] Univers 14:00:00 15:24:40 SENDIL ity [facility] 2022-05-25 2022-05-25 Office [facility] 1.2.840.114 [id number] Univers 14:00:00 15:24:40 Visit Ceci BritanyGertrudeTyrellGertrude [place] 350.1.13.10 ity of [place].2.7.2.[place] [phone] [place] 467229 [facility] 2022-05-17 2022-05-17 Outpatient R ANGELA CUNNINGHAM [facility] [id number] Univers 13:40:00 15:02:27 ANGELA CUNNINGHAM [facility] 2022-05-17 2022-05-17 Office [facility] 1.2.840.114 [id number] Univers 13:40:00 15:02:27 Visit [facility] 350.1.13.10 ity of [place] 4.2.7.2.686 Kilo as KRZYSZTOF?BLEA [id number] [address] OFFICE [facility] 2022-05-17 2022-05-17 Orders Doctor TIJERINA 1.2.840.114 [id number] Univers 00:00:00 00:00:00 Only Unassigned, MACKENZIE 350.1.13.10 ity of [place] [facility] 4.2.7.2.686 Kilo as [id number] [address] 2022-04-23 2022-04-23 Refill [facility] 1.2.840.114 [id number] Univers 00:00:00 00:00:00 [facility] 350.1.13.10 ity of [place] 4.2.7.2.686 Kilo as KRZYSZTOF?BLEA [id number] [address] OFFICE [facility] 2022-04-22 2022-04-22 Isa [facility]ARTESIA [facility] 1.2.840.114 [id number] Univers 00:00:00 00:00:00 [facility] 350.1.13.10 ity of [place] 4.2.7.2.686 Kilo as KRZYSZTOF?BLEA [id number] [facility] [address] [place] MEDICAL OFFICE [facility] 2022-04-15 2022-04-15 Outpatient Braulio CUNNINGHAM [facility] [id number] Univers 09:20:00 09:20:00 [facility] 2022-04-12 2022-04-12 Orders Doctor LILLIANA 1.2.840.114 [id number] Univers 00:00:00 00:00:00 Only Unassigned, AGES [place] 350.1.13.[address] [facility] 4.2.7.2.686 Kilo as [id number] [address] 2022-04-11 2022-04-11 Outpatient WON SALDIVAR [facility] [id number] Univers 09:00:00 09:00:00 WON MATT [facility] 2022-04-08 2022-04-08 Outpatient WON SALDIVAR [facility] [id number] Univers 13:40:00 14:51:58 WON MATT [facility] 2022-04-08 2022-04-08 Office Vernell [facility] 1.2.840.114 [id number] Univers 13:40:00 14:51:58 Visit [facility] 350.1.13.10 ity [facility] 4.2.7.2.686 Kilo as KRZYSZTOF?BLEA [phone] [address] MEDICAL OFFICE [facility] 2022-04-08 2022-04-08 Nurse Nurse, Thom-Db Neurology [facility] 1. 2.840.114 [id number] Univers 13:00:00 14:50:23 Visit [facility] 350.1.13.10 ity of [place] 4.2.7.2.686 Kilo as KRZYSZTOF?BLEA [id number] [address] MEDICAL OFFICE [facility] 2022-04-03 2022-04-03 Orders Doctor LILLIANA 1.2.840.114 [id number] Univers 00:00:00 00:00:00 Only Unassigned, MACKENZIE 350.1.13.10 ity of [place] [facility] 4.2.7.2.686 Kilo as [id number] [address] 2022-03-24 2022-03-[address] [facility] 1.2.383.797 [id number] Univers 00:00:00 00:00:00 [facility] 350.1.13.10 ity [facility] 4.2.7.2.686 Kilo as KRZYSZTOF?BLEA [id number] Mi salvatore ESTRADA [address] [place] MEDICAL OFFICE [facility] 2022-03-18 2022-03-18 Telephone [facility] 1.2.550.117 [id number] Univers 00:00:00 00:00:00 [facility] 350.1.13.10 ity of [place] 4.2.7.2.686 Kilo as KRZYSZTOF?BLEA [id number] Mi salvatore ESTRADA [address] [place] MEDICAL OFFICE [facility] 2022-03-15 2022-03-15 Telephone [facility] 1.2.840.114 [id number] Univers 00:00:00 00:00:00 [facility] 350.1.13.10 ity of [place] 4.2.7.2.686 Kilo as KRZYSZTOF?BLEA [id number] Mi salvatore ESTRADA [address] [place] MEDICAL OFFICE [facility] 2022-03-11 2022-03-11 Musical String Maker Lab, Ang - Db [facility] 1.2.840.1 14 [id number] Univers 15:30:00 15:47:[address] [facility] 350.1.13.10 ity of [place] 4.2.7.2.686 Kilo as KRZYSZTOF?BLEA [id number] Mi salvatore ESTRADA 353 [facility] OFFICE [facility] 2022-03-11 2022-03-11 Outpatient R OCTAVIO [facility] [id number] Univers 13:40:00 15:35:06 ANGELA ity [facility] 2022-03-11 2022-03-11 Office [facility] 1.2.840.114 [id number] Univers 13:40:00 15:35:06 Visit [facility] 350.1.13.10 ity of [place] 4.2.7.2.686 Kilo as KRZYSZTOF?BLEA 349.6559544 Mi salvatore ESTRADA [address] [place] MEDICAL OFFICE BUILDING 2022-03-11 2022-03-11 Office Nirmala [facility] 1.2.840.114 [id number] Univers 08:00:00 09:15:25 Visit [facility] 350.1.13.10 it y of [place] 4.2.7.2.686 Kilo as KRZYSZTOF?BLEA [id number] Mi salvatore ESTRADA [address] [place] MEDICAL OFFICE [facility] 2022-03-04 2022-03-04 Outpatient R NIRMALA [facility] [id number] Univers 10:30:00 10:30:00 [facility] 2022-[facility]-25 2022-02-25 Urgent Rea, Tamela [facility] 1.2.840.114 [id number] Univers 17:40:00 18:00:00 Care Unknown, [facility] 350.1.13.10 ity of [place] 4.2.7.2.686 Kilo as KRZYSZTOF?BLEA [id number] [facility] [address] [place] MEDICAL OFFICE [facility] 2022-02-25 2022-02-25 Outpatient R REA [facility] [id number] Univers 17:40:00 17:40:00 TAMELA [facility] 2022-02-25 2022-02-25 Outpatient R OCTAVIO [facility] [id number] Univers 14:00:00 14:00:00 [facility] 2022-02-23 2022-02-23 Orders Doctor LILLIANA 1.2.840.114 [id number] Univers 00:00:00 00:00:00 Only Unassigned, [place]IE 350.1.13.10 [facility] 4.2.7.2.686 Kilo as [id number] [address] 2022-01-21 2022-01-21 Outpatient Braulio CUNNINGHAM [facility] [id number] Univers 15:40:00 16:34:00 [facility] 2022-01-21 2022-01-21 Office [facility] 1.2.840.114 [id number] Univers 15:40:00 16:34:00 Visit [facility] 350.1.13.10 ity of [place] 4.2.7.2.686 Kilo as KRZYSZTOF?BLEA [phone] [address] MEDICAL OFFICE [facility] 2021-12-31 2021-12-31 Outpatient [facility] [id number] Univers 11:20:00 11:20:00 ANGELA ity [facility] 2021-12-31 2021-12-31 Orders Doctor LILLIANA 1.2.840.114 [id number] Univers 00:00:00 00:00:00 Only Unassigned, MACKEN[place]IE 350.1.13.10 [facility] 4.2.7.2.686 Kilo as [phone] [address] 2021-12-24 2021-12-24 Outpatient R ODILON [facility] [id number] Univers 14:30:00 15:49:08 CHARY ity [facility] 2021-12-24 2021-12-24 Office [facility] 1.2.840.114 [id number] Univers 14:30:00 15:49:08 Visit Chary [facility] 350.1.13.10 i ty of [place] 4.2.7.2.686 Kilo as KRZYSZTOF?BLEA [id number] [address] OFFICE [facility] 2021-12-23 2021-12-23 Abstract [facility] 1.2.840.114 [id number] Univers 00:00:00 00:00:00 Angela HEALTH 350.1.13.10 ity of [place] 4.2.7.2.686 Kilo as KRZYSZTOF?BLEA [id number] [address] OFFICE [facility] 2021-12-17 2021-12-17 Outpatient R BETO [facility] [id number] Univers 11:00:00 11:00:00 DANIEL collins o f [facility] 2021-12-17 2021-12-17 Refill [facility] 1.2.840.114 [id number] Univers 00:00:00 00:00:00 [place] [facility] 350.1.13.10 ity of [place] 4.2.7.2.686 Kilo as KRZYSZTOF?BLEA [phone] Mi salvatore [address] MEDICAL OFFICE [facility] 2021-12-10 2021-12-10 Outpatient R OCTAVIO [facility] [id number] Univers 09:20:00 09:20:00 ANGELA ity [facility] 2021-12-10 2021-12-10 Outpatient R OCTAVIO, [facility] [id number] Univers 09:20:00 09:20:00 [place] ity [facility] 2021-12-03 2021-12-03 Outpatient [facility] [id number] Univers 13:40:00 14:38:59 [facility] 2021-12-03 2021-12-03 Office [facility] 1.2.840.114 [id number] Univers 13:40:00 14:38:59 Visit [facility] 350.1.13.10 [facility] 4.2.7.2.686 Kilo as KRZYSZTOF?BLEA [id number] [address] OFFICE [facility] 2021-11-27 2021-11-27 Refill [facility] 1.2.840.114 [id number] Univers 00:00:00 00:00:00 [place] [facility] 350.1.13.10 ity of [place] 4.2.7.2.686 Kilo as KRZYSZTOF?BLEA [phone] Mi salvatore ESTRADA [address] [place] [address] MEDICAL OFFICE [facility] 2021-11-26 2021-11-26 Outpatient R WON MATT [facility] [id number] Univers 15:40:00 16:24:04 WON MATT [facility] 2021-11-26 2021-11-26 Office Vernlel [facility] 1.2.840.114 [id number] Univers 15:40:00 16:24:04 Visit Won [facility] 350.1.13.10 ity of [facility] 4.2.7.2.686 Kilo as KRZYSZTOF?BLEA [id number] [address] MEDICAL OFFICE BUILDING 2021-11-19 2021-11-19 Outpatient R WON MATT [facility] [id number] Univers 09:57:12 23:59:00 WON MATT [facility] 2021-11-19 2021-11-19 Hospital [facility] 1.2.754.843 [id number] Univers 09:57:12 23:59:00 Encounter Won Serra [place] 350.1.13.10 ity of [place] 4.2.7.2.686 [place] [facility] [phone] [facility] [address] [place] 2021-11-18 2021-11-18 Orders Doctor LILLIANA 1.2.840.114 [id number] Univers 00:00:00 00:00:00 Only Unassigned, MACKENZIE 350.1.13.10 [facility] 4.2.7.2.686 Kilo as [phone] [facility] [address] 2021-11-09 2021-11-09 Outpatient R BETO [facility] [id number] Univers 13:00:00 13:00:00 DANIEL itkaren o f [facility] 2021-11-05 2021-11-05 Outpatient R OCTAVIO [facility] [id number] Univers 10:40:00 10:40:00 ANGELA collins [facility] 2021-11-02 2021-11-02 Outpatient R VERNELLWON SIBLEY [facility] [id number] Univers 13:00:00 14:14:42 WON MATT karina [facility] 2021-11-02 2021-11-02 Office [facility] 1.2.840.114 [id number] Univers 13:00:00 14:14:42 Visit Won Serra [facility] 350.1.13.10 ity of [place] 4.2.7.2.686 Kilo as KRZYSZTOF?BLEA [id number] [address] MEDICAL OFFICE [facility] 2021-11-01 2021-11-01 Orders Doctor TIJERINA 1.2.840.114 [id number] Univers 00:00:00 00:00:00 Only Unassigned, MACKENZIE 350.1.13.10 ity of [place] [facility] 4.2.7.2.686 Kilo as [phone] [address] 2021-10-28 2021-10-28 Telephone [facility] [id number] Univers 00:00:00 00:00:00 [facility] 350.1.13.10 ity of [place] 4.2.7.2.686 Kilo as KRZYSZTOF?BLEA [phone] [address] MEDICAL OFFICE [facility] 2021-10-26 2021-10-26 Telephone [facility] [id number] Univers 00:00:00 00:00:00 [facility] 350.1.13.10 ity of [place] 4.2.7.2.686 Kilo as KRZYSZTOF?BLEA [phone] [address] OFFICE [facility] 2021-10-25 2021-10-25 [facility] [id number] Univers 14:40:00 15:55:58 ANGELA ity [facility] 2021-10-25 2021-10-25 Office [facility] 1.2.840.114 [id number] Univers 14:40:00 15:55:58 Visit [facility] 350.1.13.10 ity of [place] 4.2.7.2.686 Kilo as KRZYSZTOF?BLEA [phone] [address] OFFICE [facility] 2021-10-25 2021-10-25 Telephone [facility] [id number] Univers 00:00:00 00:00:00 [facility] 350.1.13.10 ity of [place] 4.2.7.2.686 Kilo as KRZYSZTOF?BLEA [phone] [address] MEDICAL OFFICE [facility] 2021-10-25 2021-10-25 Orders Doctor TIJERINA 1.2.840.114 [id number] Univers 00:00:00 00:00:00 Only Unassigned, MACKENZIE 350.1.13.10 ity of [place] [facility] 4.2.7.2.686 Kilo as [phone] [address] 2021-10-20 2021-10-20 Telephone [facility] [id number] Univers 00:00:00 00:00:00 [facility] 350.1.13.10 ity of [place] 4.2.7.2.686 Kilo as KRZYSZTOF?BLEA [phone] [address] MEDICAL OFFICE [facility] 2021-09-24 2021-09-24 Outpatient R [facility] [id number] Univers 08:40:00 08:40:00 [facility] 2021-09-24 2021-09-24 [facility] [id number] Univers 08:30:00 08:30:00 [facility] 2021-09-17 2021-09-17 Outpatient R WON MATT [facility] [id number] Univers 11:00:00 11:00:00 WON MATT [facility] 2021-09-13 2021-09-13 Telephone [facility] [id number] Univers 00:00:00 00:00:00 [facility] 350.1.13.10 ity of [place] 4.2.7.2.686 Kilo as KRZYSZTOF?BLEA [phone] [address] MEDICAL OFFICE [facility] 2021-09-13 2021-09-13 Orders Doctor TIJERINA 1.2.840.114 [id number] Univers 00:00:00 00:00:00 Only Unassigned, MACKENZIE 350.1.13.10 ity [place] [facility] 4.2.7.2.686 Kilo as [phone] [address] 2021-09-10 2021-09-10 Outpatient R OCTAVIO [facility] [id number] Univers 16:00:00 17:05:49 [facility] 2021-09-10 2021-09-10 Office [facility] 1.2.840.114 [id number] Univers 16:00:00 17:05:49 Visit [facility] 350.1.13.10 ity of [place] 4.2.7.2.686 Kilo as KRZYSZTOF?BLEA [phone] [address] OFFICE [facility] 2021-09-05 2021-09-05 Telephone [facility] 1.2.100.858 [id number] Univers 00:00:00 00:00:00 Chary A HEALTH 350.1.13.10 i ty of [facility] 4.2.7.2.686 Kilo as KRZYSZTOF?BLEA [phone] [address] OFFICE [facility] 2021-09-03 2021-09-03 Musical String Maker Lab, Ang - Db [facility] 1.2.840.1 14 [id number] Univers 07:45:00 08:09:[address] [facility] 350.1.13.10 ity of [place] 4.2.7.2.686 Kilo as KRZYSZTOF?BLEA [phone] [address] OFFICE [facility] 2021-09-03 2021-09-03 Outpatient R [facility] [id number] Univers 07:45:00 07:45:00 [facility] 2021-09-02 2021-09-02 Telephone [facility] 1.2.481.618 [id number] Univers 00:00:00 00:00:00 [facility] 350.1.13.10 ity of [place] 4.2.7.2.686 Kilo as KRZYSZTOF?BLEA [phone] [address] OFFICE [facility] 2021-08-27 2021-08-27 Musical String Maker Lab, Ang - Db [facility] 1.2.840.1 14 [id number] Univers 15:30:00 15:45:[address] [facility] 350.1.13.10 ity of [place] 4.2.7.2.686 Kilo as KRZYSZTOF?BLEA [phone] [address] OFFICE [facility] 2021-08-27 2021-08-27 [facility] [id number] Univers 14:00:00 15:19:02 [facility] 2021-08-27 2021-08-27 Office [facility] 1.2.840.114 [id number] Univers 14:00:00 15:19:02 Visit Angela HEALTH 350.1.13.10 ity of [facility] 4.2.7.2.686 Kilo as KRZYSZTOF?BLEA [phone] [address] MEDICAL OFFICE [facility] 2021-08-20 2021-08-20 [facility]ill [facility] 1.2.840.114 [id number] Univers 00:00:00 00:00:00 Chary A HEALTH 350.1.13.10 i ty of [place] 4.2.7.2.686 Kilo as KRZYSZTOF?BLEA [phone] [address] OFFICE [facility] 2021-08-16 2021-08-16 Patient Doctor LILLIANA 1.2.840.114 [id number] Univers 00:00:00 00:00:00 Secure Msg Unassigned, MACKENZIE 350.1.13.10 ity of [place] [facility] 4.2.7.2.686 Kilo as [phone] [address] 2021-07-21 2021-07-21 Patient Doctor LILLIANA 1.2.840.114 [id number] Univers 00:00:00 00:00:00 Secure Msg Unassigned, MACKENZIE 350.1.13.10 ity of [place] [facility] 4.2.7.2.686 Kilo as [phone] [address] 2021-07-09 2021-07-09 Outpatient R ODILON, [facility] [id number] Univers 16:00:00 17:29:20 CHARY ity of [facility] 2021-07-09 2021-07-09 Office Odilon, [facility] 1.2.840.114 [id number] Univers 16:00:00 17:29:20 Visit Chary A HEALTH 350.1.13.10 i ty of [place] 4.2.7.2.686 Kilo as KRZYSZTOF?BLEA [phone] [address] OFFICE [facility] 2021-07-09 2021-07-09 Outpatient R ODILON, [facility] [id number] Univers 16:00:00 17:29:20 CHARY ity of [facility] 2021-06-09 2021-06-09 Case Rea [facility] 1.2.840.114 [id number] Univers 00:00:00 00:00:00 Management Rania HEALTH 350.1.13.10 ity of [facility] 4.2.7.2.686 Kilo as KRZYSZTOF?BLEA [phone] [address] MEDICAL OFFICE [facility] 2021-06-09 2021-06-09 Tapan Mccartney [facility] 1.2.840.114 [id number] Univers 00:00:00 00:00:00 (Out) Ree HEALTH 350.1.13.10 it y of [place] 4.2.7.2.686 Kilo as KRZYSZTOF?BLEA [phone] [address] OFFICE [facility] 2021-06-08 2021-06-08 Laboratory Only, Ang Db Test [facility] 1.2.8 40.114 [id number] Univers 09:15:00 09:30:00 Only Tera Ricks [facility] 350.1.13.10 ity of [place] 4.2.7.2.686 Kilo as KRZYSZTOF?BLEA [phone] [address] OFFICE [facility] 2021-06-08 2021-06-08 Outpatient R ANDREW [facility] [id number] Univers 09:15:00 09:15:00 TERA ity of [facility] 2021-05-17 2021-05-17 Outpatient R JOEL [facility] [id number] Univers 13:30:00 13:30:00 karina NAYAK [facility] 2021-05-13 2021-05-13 Orders Doctor LILLIANA 1.2.840.114 [id number] Univers 00:00:00 00:00:00 Only Unassigned, MACKENZIE 350.1.13.10 ity of [place] [facility] 4.2.7.2.686 Kilo as [phone] [address] 2021-05-03 2021-05-03 Telephone Lyla [facility] 1.2.791.149 [id number] Univers 00:00:00 00:00:00 Amaya HEALTH 350.1.13.10 it y of [facility] 4.2.7.2.686 Kilo as KRZYSZTOF?BLEA [phone] [address] MEDICAL OFFICE [facility] 2021-04-30 2021-04-30 Telephone Randal [facility] 1.2.650.632 [id number] Univers 00:00:00 00:00:00 [facility] 350.1.13.10 it y of [place] 4.2.7.2.686 Kilo as KRZYSZTOF?BLEA [phone] [address] MEDICAL OFFICE [facility] 2021-04-29 2021-04-29 Nurse LILLIANA Jain 1.2.840.114 [id number] Univers 00:00:00 00:00:00 Triage Pamela MANN 350.1.13.10 it y of [facility] 4.2.7.2.686 [place]ilo as [phone] [address] 2021-04-29 2021-04-29 [facility] 1.2.840.114 [id number] Univers 00:00:00 00:00:00 Wondiful A [place] 350.1.13.10 ity [facility] [place]2.7.2.[place] PROF[place] [phone] [address] 2021-04-23 2021-04-23 Outpatient Braulio PÉREZ [facility] [id number] Univers 09:00:00 09:00:00 QIAVERÓNICAJUN ity o f [facility] 2021-04-14 2021-04-14 Outpatient Braulio HOBSON [facility] [id number] Univers 09:30:00 09:30:00 WONDIFUL ity o f [facility] 2021-04-14 2021-04-14 Outpatient R JOCE [facility] [id number] Univers 09:30:00 09:30:00 WONDIFUL ity o f [facility] 2021-04-05 2021-04-05 Outpatient Braulio ERIC [facility] [id number] Univers 10:30:00 10:30:00 JESSICA collins of [facility] 2021-04-05 2021-04-05 Orders Doctor TIJERINA 1.2.840.114 [id number] Univers 00:00:00 00:00:00 Only Unassigned, MACKENZIE 350.1.13.10 [facility] 4.2.7.2.686 [place]ilo as [phone] [address] 2021-03-22 2021-03-22 Outpatient R LYLA, [facility] [id number] Univers 11:30:00 12:40:29 AMAYA ity of [facility] 2021-03-22 2021-03-22 Office [facility] 1.2.840.114 [id number] Univers 11:30:00 12:40:29 Visit Amaya HEALTH 350.1.13.10 it y of [place] 4.2.7.2.686 Kilo as KRZYSZTOF?BLEA [phone] [address] MEDICAL OFFICE BUILDING 2021-03-21 2021-03-21 Refshruthi [facility] 1.2.840.114 [id number] Univers 00:00:00 00:00:00 Wondiful A HEALTH 350.1.13.10 ity of [place] 4.2.7.2.686 Kilo as PROFESSIO [phone] [address] OFFICE BUILDING ONE 2021-02-22 2021-02-22 Office PAULINA Eric 1.2.840.114 [id number] Univers 14:30:00 15:00:00 Visit Jessica R Y HEALTH 350.1.13.10 ity of [facility] 4.2.7.2.[place] [phone] [address] 2021-02-22 2021-02-22 Outpatient R ARIAN, [facility] [id number] Univers 14:30:00 14:30:00 JESSICA ity of [facility] 2021-02-22 2021-02-22 Outpatient R ARIAN, [facility] [id number] Univers 14:30:00 14:30:00 JESSICA ity of [facility] 2021-01-25 2021-01-25 [facility] 1.2.840.114 [id number] Univers 00:00:00 00:00:00 Wondiful A HEALTH 350.1.13.10 ity of [place] 4.2.7.2.686 Kilo as PROFESSIO [phone] Mi salvatore PANTOJA [address] [place] [address] OFFICE BUILDING ONE 2021-01-21 2021-01-21 Case Joce [facility] 1.2.840.114 [id number] Univers 00:00:00 00:00:00 Management Jamilful A HEALTH 350.1.13.10 ity of [place] 4.2.7.2.686 Kilo as KRZYSZTOF?BLEA [phone] Mi salvatore [address] OFFICE BUILDING 2021-01-21 2021-01-21 Beto Hobson [facility] 1.2.840.114 [id number] Univers 00:00:00 00:00:00 Management Jamilful A HEALTH 350.1.13.10 ity of [place] 4.2.7.2.686 Kilo as KRZYSZTOF?BLEA [phone] [address] 2021-01-20 2021-01-20 Outpatient R TERESITA [facility] [id number] Univers 09:25:28 23:59:00 SENDIL ity of [facility] 2021-01-20 2021-01-20 Hospital Austin Hobson [facility] 1.2.8 40.114 [id number] Univers 09:00:00 23:59:00 Encounter Ceci Lo [place] 350.1.1 3.10 ity of [place].2.7.2.[place] [phone] [address] 2021-01-15 2021-01-15 Outpatient R JOCE [facility] [id number] Univers 10:10:00 10:10:00 WONDIFUL ity o f [facility] 2021-01-15 2021-01-15 Imm/Inj Vaccine, Ang Db Cbc [facility] 1. 2.840.114 [id number] Univers 08:47:34 08:57:34 Visit Austin Hobson HEALTH 350.1.13.1 0 ity of [place] 4.2.7.2.686 Kilo as KRZYSZTOF?BLEA [phone] [address] OFFICE [facility] 2021-01-15 2021-01-15 Musical String Maker Lab, Ang - Db [facility] 1.2.840.1 14 [id number] Univers 08:20:53 08:35:53 Visit Austin Hobson HEALTH 350.1.13.1 0 ity of [place] 4.2.7.2.686 Kilo as KRZYSZTOF?BLEA [phone] Mi salvatore ESTRADA 353 [facility] OFFICE [facility] 2021-01-14 2021-01-14 Office [facility] 1.2.840.114 [id number] Univers 13:02:10 13:52:29 Visit Wondiful A HEALTH 350.1.13.10 ity of [place] 4.2.7.2.686 Kilo as KRZYSZTOF?BLEA [phone] Mi salvatore [address] 2021-01-14 2021-01-14 Outpatient R JOCE [facility] [id number] Univers 13:00:00 13:52:29 WONDIFUL ity o f [facility] 2020-12-04 2020-12-04 Hospital [facility] 1.2.117.661 [id number] Univers 12:31:25 23:59:00 Encounter Wondiful A [place] 350.1.13.10 ity of [place] 4.2.7.2.686 [place] [facility] [phone] [address] 2020-12-04 2020-12-04 Out[facility] [id number] Univers 10:15:00 12:44:29 WONDIFUL ity o f [facility] 2020-12-04 2020-12-04 Office [facility] 1.2.840.114 [id number] Univers 10:12:12 12:44:29 Visit Wondiful A HEALTH 350.1.13.10 ity of [place] 4.2.7.2.686 Kilo as KRZYSZTOF?BLEA [phone] Mi salvatore ESTRADA 044 [facility] OFFICE [facility] 2020-10-16 2020-10-16 Patient [facility] 1.2.840.114 [id number] Univers 00:00:00 00:00:00 Secure Msg Wondiful A Health 350.1.13.10 ity of [place] 4.2.7.2.686 Kilo as Krzysztof?Blea [phone] [address] Office [facility] 2020-10-13 2020-10-13 Telephone [facility] 1.2.840.114 [id number] Univers 00:00:00 00:00:00 Wondiful A Health 350.1.13.10 ity of [place] 4.2.7.2.686 Kilo as Krzysztof?Blea [phone] [address] Medical Office [facility] 2020-10-08 2020-10-08 Patient Doctor LILLIANA 1.2.840.114 [id number] Univers 00:00:00 00:00:00 Secure Msg Unassigned, MACKENZIE 350.1.13.10 [facility] 4.2.7.2.686 Kilo as [phone] [address] 2020-10-08 2020-10-08 [facility]ill [facility] 1.2.840.114 [id number] Univers 00:00:00 00:00:00 Wondiful A Health 350.1.13.10 ity of [place] 4.2.7.2.686 Kilo as Krzysztof?Blea [phone] [address] Office [facility] 2020-10-08 2020-10-08 Telephone [facility] 1.2.840.114 [id number] Univers 00:00:00 00:00:00 Wondiful A Health 350.1.13.10 ity of [place] 4.2.7.2.686 Kilo as Krzysztof?Blea [phone] [address] Office [facility] 2020-10-06 2020-10-06 Outpatient R JOCE [facility] [id number] Univers 09:00:00 09:00:00 WONDIFUL ity o f [facility] 2020-10-05 2020-10-05 Office [facility] 1.2.840.114 [id number] Univers 11:08:16 12:09:41 Visit Wondiful A Health 350.1.13.10 ity of [place] 4.2.7.2.686 Kilo as Krzysztof?Blea [phone] Mi salvatore estrada 044 [facility] Office Building 2020-10-05 2020-10-05 Outpatient R JOCE [facility] [id number] Univers 11:15:00 11:15:00 WONDIFUL ity o f [facility] 2020-09-15 2020-09-15 Outpatient R JOCE, [facility] [id number] Univers 14:30:00 14:30:00 WONDIFUL ity o f [facility] 2020-08-06 2020-08-06 Outpatient R BETO, [facility] [id number] Univers 00:00:00 00:00:[address] [facility] 2020-07-21 2020-07-21 Patient [facility] 1.2.840.114 [id number] Univers 00:00:00 00:00:00 Secure Msg [facility] 350.1.13.10 ity [address] [facility] 4.2.7.2.[place] [phone] [address] 2020-07-20 2020-07-20 Musical String Maker Lab, Adc Fam Pob I [facility] 1.2. 840.114 [id number] Univers 10:43:24 11:03:24 Visit [facility] 350.1.13.10 ity of [place] 4.2.7.2.686 Kilo as Professio [phone] [address] Office Building One 2020-07-20 2020-07-20 Office [facility] 1.2.840.114 [id number] Univers 09:55:53 10:27:33 [facility] 350.1.13.10 ity of [place].2.7.2.[place] Profess[place] [phone] [address] 2020-07-20 2020-07-20 Outpatient R BETO, [facility] [id number] Univers 10:00:00 10:00:[address] [facility] 2020-06-02 2020-06-02 Sloan Hobson, [facility] 1.2.840.114 [id number] Univers 00:00:00 00:00:00 Wondiful A Health 350.1.13.10 ity of [place] 4.2.7.2.686 Kilo as Professio [phone] [facility] 044 [facility] One 2020-06-01 2020-06-01 Refill [facility] 1.2.840.114 [id number] Univers 00:00:00 00:00:00 Qiaverónicachevy Albrecht 350.1.13.10 ity of [place] 4.2.7.2.[place] Profess[place] [phone] [facility] [address] [place] [address] 2020-05-18 2020-05-18 Orders Doctor LILLIANA 1.2.840.114 [id number] Univers 00:00:00 00:00:00 Only Unassigned, MACKENZIE 350.1.13.10 ity of [place] [facility] 4.2.7.2.686 Kilo as [phone] [address] 2020-04-29 2020-04-29 Telephone Beto, [facility] 1.2.139.195 [id number] 00:00:00 00:00:00 Antoniverónicachevy Albrecht 350.1.13.10 [place] 4.2.7.2.686 Professio [phone] [address] 2020-04-29 2020-04-29 Refill [facility] 1.2.840.114 [id number] 00:00:00 00:00:00 Daniel [place] 350.1.13.10 [place] 4.2.7.2.686 Professio [phone] [address] 2020-04-29 2020-04-29 Telephone [facility] 1.2.606.520 [id number] Univers 00:00:00 00:00:00 Maurochevy [place] 350.1.13.10 ity of [place] 4.2.7.2.686 [place] [phone] [address] 2020-04-29 2020-04-29 Refill [facility] 1.2.840.114 [id number] Univers 00:00:00 00:00:00 Daniel [place] 350.1.13.10 ity of [place] 4.2.7.2.686 [place] [phone] [facility] 059 [facility] 2020-04-25 2020-04-25 Urgent Provider, [facility] 1.2.984.115 [id number] 10:12:47 10:32:47 Care Ang [facility] 350.1.13.10 Care [place] 4.2.7.2.686 Professio [phone] [place] [address] Office Building One 2020-04-25 2020-04-25 Urgent Provider, [facility] 1.2.840.114 [id number] [facility] 10:12:47 10:32:47 Care Mine No Health 350.1.13.10 ity of [place] 4.2.7.2.686 Kilo as Professio [phone] [address] Office [facility] One 2020-04-25 2020-04-25 Outpatient R ONEAL [facility] [id number] [facility] 10:20:00 10:20:00 MINE mitchell [facility] 2020-04-15 2020-04-15 Telephone [facility] 1.2.840.114 [id number] 00:00:00 00:00:00 Wondiful A Health 350.1.13.10 [place] 4.2.7.2.686 Professio [phone] [place] [address] Office [facility] 2020-04-15 2020-04-15 Telephone [facility] 1.2.840.114 [id number] Univers 00:00:00 00:00:00 Wondiful A Health 350.1.13.10 ity of [place] 4.2.7.2.686 Kilo as Professio [phone] [address] Office Building One 2020-03-07 2020-03-07 Patient Tyler [facility] 1.2.840.114 [id number] 00:00:00 00:00:00 Outreach Ethan PRIMARY 350.1.13.10 [facility] CARE 4.2.7.2.686 PAVILLION [phone] 388 2020-03-07 2020-03-07 Patient Tyler [facility] 1.2.840.114 [id number] Univers 00:00:00 00:00:00 Outreach Ethan PRIMARY 350.1.13.10 i ty of [place] C[place]2.7.2.[place] [phone] [address] 2020-01-16 2020-01-16 Outpatient R JOCE [facility] [id number] [facility] 16:30:00 16:30:00 WONDIFUL ity o f [facility] 2020-01-16 2020-01-16 Telemedici [facility] 1.2.840.114 [id number] 16:09:25 16:24:25 ne Visit Wondiful A Health 350.1.13.10 [place] 4.2.7.2.686 Professio [phone] [place] [address] Office Building [facility] 2020-01-16 2020-01-16 Telemedic [facility] 1.2.840.114 [id number] [facility] 16:09:25 16:24:25 ne Visit Wondiful A Health 350.1.13.10 ity of [place] 4.2.7.2.686 Kilo as Professio [phone] [address] Office Building [facility] 2020-01-12 2020-01-12 Orders Doctor LILLIANA 1.2.840.114 [id number] 00:00:00 00:00:00 Only Unassigned, MACKENZIE 350.1.13.10 [place] [facility] 4.2.7.2.686 [phone] 009 2020-01-12 2020-01-12 Orders Doctor LILLIANA 1.2.840.114 [id number] Univers 00:00:00 00:00:00 Only Unassigned, MACKENZIE 350.1.13.10 ity of [place] [facility] 4.2.7.2.686 Kilo as [phone] [address] 2019-12-16 2019-12-16 Case Joce [facility] 1.2.840.114 [id number] 00:00:00 00:00:00 Management Wondiful A Health 350.1.13.10 [place] 4.2.7.2.686 Professio [phone] nal [facility] Office Building One 2019-12-16 2019-12-16 Case Joce [facility] 1.2.840.114 [id number] Univers 00:00:00 00:00:00 Management Wondiful A Health 350.1.13.10 ity of [place] 4.2.7.2.686 Kilo as Professio [phone] [address] Office Building One 2019-12-12 2019-12-12 Musical String Maker 1, Adc Lab [facility] 1.2.840.114 [id number] 09:36:54 09:51:54 Visit [place] 350.1.13.10 [place] 4.2.7.2.686 [place] [phone] [facility] 2019-12-12 2019-12-12 Musical String Maker 1, Adc Lab [facility] 1.2.840.114 [id number] [facility] 09:36:54 09:51:54 Visit Austin Hobson [place] 350.1.13. 10 ity of [place] 4.2.7.2.686 [place] [phone] [address] 2019-12-12 2019-12-12 Outpatient R [facility] [id number] Univers 08:30:00 08:30:00 ity of [facility] 2019-12-12 2019-12-12 Telephone [facility] 1.2.840.114 [id number] 00:00:00 00:00:00 Wondiful A Health 350.1.13.10 [place] 4.2.7.2.686 Professio [phone] nal [facility] Office Building One 2019-12-12 2019-12-12 Telephone Joce [facility] 1.2.840.114 [id number] Univers 00:00:00 00:00:00 Wondiful A Health 350.1.13.10 ity of [place] 4.2.7.2.686 Kilo as Professio [phone] [address] Office Building One 2019-12-05 2019-12-05 Orders Doctor LILLIANA 1.2.840.114 [id number] 00:00:00 00:00:00 Only Unassigned, MACKENZIE 350.1.13.10 [place] [facility] 4.2.7.2.686 [phone] 009 2019-12-05 2019-12-05 Orders Doctor LILLIANA 1.2.840.114 [id number] Univers 00:00:00 00:00:00 Only Unassigned, MACKENZIE 350.1.13.10 ity of [place] [facility] 4.2.7.2.686 Kilo as [phone] [address] 2019-11-14 2019-11-14 Case Joce [facility] 1.2.840.114 [id number] 00:00:00 00:00:00 Management Wondiful A Health 350.1.13.10 [place] 4.2.7.2.686 Professio [phone] [place] [address] Office Building [facility] 2019-11-14 2019-11-14 Beto Hobson [facility] 1.2.840.114 [id number] [facility] 00:00:00 00:00:00 Management Wondiful A Health 350.1.13.10 ity of [place] 4.2.7.2.686 Kilo as Professio [phone] [address] Office Building One 2019-11-13 2019-11-13 Beto Hobson [facility] 1.2.840.114 [id number] 00:00:00 00:00:00 Management [facility] 350.1.13.10 [place] 4.2.7.2.686 Professio [phone] [place] [address] Office Building [facility] 2019-11-13 2019-11-13 Beto Hobson [facility] 1.2.840.114 [id number] Univers 00:00:00 00:00:00 Management [facility] 350.1.13.10 [facility] [place] 4.2.7.2.686 [place] as Professio [phone] [address] Office Building [facility] 2019-11-08 2019-11-08 [employer] [employer] [facility], Adc Fam Pob I [facility] 1.2. 840.114 [id number] [facility] 11:16:17 11:26:17 Visit [place], [facility] 350.1.13.1 0 [facility] [place] 4.2.7.2.686 [place] [facility] Professio [phone] [address] Office [facility] 2019-11-08 2019-11-08 Office Joce, [facility] 1.2.840.114 [id number] 09:44:58 11:00:23 Visit [facility] 350.1.13.10 [place] 4.2.7.2.686 Professio [phone] [place] [address] Office [facility] 2019-11-08 2019-11-08 [facility] 1.2.840.114 [id number] Univers 09:44:58 11:00:23 Visit [facility] 350.1.13.10 [facility] [place] 4.2.7.2.686 [place] [facility] Professio [phone] [address] 2019-11-08 2019-11-08 Outpatient R JOCE [facility] [id number] Univers 08:45:00 08:45:00 WONDIFUL ity o f [facility] 2019-09-02 2019-11-04 [facility] 1.2.840.114 [id number] [facility] 09:09:51 09:25:19 ne Visit [place]ondiful A [place] 350.1.13.10 [place] 4[place]7.2.[place] [phone] [address] 2019-11-04 2019-11-04 Musical [facility] Lab, Adc Fam Pob I [facility] 1.2. 840.114 [id number] [facility] 09:02:55 09:12:55 Visit [facility] 350.1.13.1 0 [facility] of [place] 4.2.7.2.686 [place] as Professio [phone] [address] 2019-11-04 2019-11-04 Outpatient R JOCE [facility] [id number] Univers 09:00:00 09:00:00 WONDIFUL ity o f [facility] 2019-10-30 2019-10-30 [facility] 1.2.840.114 [id number] Univers 00:00:00 00:00:00 [facility] 350.1.13.10 [facility] of [place] 4.2.7.2.686 [place] as Professio [phone] [facility] 2019-10-25 2019-10-25 [facility] 1.2.840.114 [id number] Univers 00:00:00 00:00:00 [facility] 350.1.13.10 [facility] of [place] 4.2.7.2.686 [place] as Professio [phone] [facility] 044 [facility] Healthcare 2019-10-25 2019-10-25 [facility] 1.2.840.114 [id number] Univers 00:00:00 00:00:00 Wondiful A Health 350.1.13.10 ity of [place] 4.2.7.2.686 Kilo as Professio [phone] [facility] 044 [facility]ly [facility] 2019-10-07 2019-10-07 Orders Doctor LILLIANA 1.2.840.114 [id number] Univers 00:00:00 00:00:00 Only Unassigned, MACKENZIE 350.1.13.10 ity of [place] [facility] 4.2.7.2.686 Kilo as [phone] [address] 2019-09-30 2019-09-30 Office [facility] 1.2.840.114 [id number] Univers 09:15:37 09:55:50 Visit Daniel [place] 350.1.13.10 ity of [place] [phone] [facility] 059 [facility] 2019-09-30 2019-09-30 Outpatient R BETO [facility] [id number] Univers 09:40:00 09:40:00 QIANGJUN ity o f [facility] 2019-09-02 2019-09-02 Outpatient R JOCE [facility] [id number] Univers 08:45:00 08:45:00 WONDIFUL ity o f [facility] 2019-08-30 2019-08-30 Telephone OdilonLILLIANA [id number] Univers 00:00:00 00:00:00 Chary Goyal MACKENZIE 350.1.13.10 i ty of HOSPITAL 4.2.7.2.686 Kilo as [phone] [address] 2019-08-29 2019-08-29 Laboratory Lab, [facility] Pob I [facility] 1.2. 840.114 [id number] Univers 11:32:55 11:52:55 Only Amaya [facility] 350.1.13.10 ity of [place] 4.2.7.2.686 Kilo as Professio [phone] [address] Office Building [facility] 2019-08-29 2019-08-29 Outpatient [facility] [id number] Univers 11:40:00 11:40:00 AMAYA ity of [facility] 2019-08-29 2019-08-29 Urgent Lab, [facility] 1.2.840.114 [id number] 11:00:00 11:20:00 Care Fam Pob I Health 350.1.13.10 [place] 4.2.7.2.686 Professio [phone] [place] [address] Office [facility] 2019-08-29 2019-08-29 Urgent Lab, [facility] Pob I [facility] 1.2.840 .114 [id number] Univers 11:00:00 11:20:00 Care Amaya [facility] 350.1.13.10 ity of [place] 4.2.7.2.686 Kilo as Professio [phone] [address] Office Building [facility] 2019-08-29 2019-08-29 Outpatient R [facility] [id number] Univers 11:00:00 11:00:00 ity of [facility] 2019-08-29 2019-08-29 Letter Doctor LILLIANA 1.2.840.114 [id number] Univers 00:00:00 00:00:00 (Out) Unassigned, MACKENZIE 350.1.13.10 ity of [place] HOSPITAL 4.2.7.2.686 Kilo as [phone] [address] 2019-08-20 2019-08-20 [facility] 1.2.840.114 [id number] Univers 00:00:00 00:00:00 Wondiful A Health 350.1.13.10 ity of [place] 4.2.7.2.686 Kilo as Professio [phone] [address] 2019-07-30 2019-07-30 Office Thacker, [facility] Encounter / Legacy 00:00:00 00:00:00 Visit Renata [id number] Com natalee [id number] [facility] 2019-07-11 2019-07-11 [address] [facility] [facility] [id number] Univers 09:15:00 09:15:00 WONDIFUL ity o f [facility] 2019-07-03 2019-07-03 Telephone [facility] ..840.114 [id number] Univers 00:00:00 00:00:00 Wondiful A [place] 350.1.13.10 ity of [place].7.2.[place] [phone] [address] 2019-07-01 2019-07-01 Office Wilfredo, [facility] Encounter/ Legacy 00:00:00 00:00:00 Visit Mirella [id number] Com natalee De La Cruz [id number] [facility] 2019-07-01 2019-07-01 Office Wilfredo, [facility] Encounter/ Legacy 00:00:00 00:00:00 Visit Mirella [id number] Com natalee De La Cruz 363835 [facility] 2019-07-01 2019-07-01 Office WilfredoMirella [facility] Encounter/ Legacy 00:00:00 00:00:00 Visit Shy Miller [id number] Communi 032164 [facility] 2019-07-01 2019-07-01 Telephone [facility] ..840.114 [id number] Univers 00:00:00 00:00:00 Wondiful A Health 350.1.13.10 ity of [place] 4.2.7.2.686 Kilo as Professio [phone] [address] 2019-06-25 2019-06-25 Office Wilfredo, [facility] Encounter/ Legacy 00:00:00 00:00:00 Visit Mirella [id number] Com natalee De La Cruz [id number] [facility] 2019-06-25 2019-06-25 Office Wilfredo, Mirella De La Cruz [facility] Encounter/ Legacy 00:00:00 00:00:00 Visit Renata Thacker [id number] [address] [place], [place] [address]i 441621 [facility] 2019-06-25 2019-06-25 Office Wilfredo, [facility] Encounter/ Legacy 00:00:00 00:00:00 Visit Mirella [id number] Com natalee De La Cruz 746671 [facility] 2019-06-25 2019-06-25 Office Wilfredo, [facility] Encounter/ Legacy 00:00:00 00:00:00 Visit Mirella [id number] Com natalee De La Cruz 594440 [facility] 2019-05-14 2019-05-14 Refill [facility] 1.2.840.114 [id number] Univers 00:00:00 00:00:00 Wondiful A Health 350.1.13.10 ity of [place] 4.2.7.2.686 Kilo as Professio [phone] Mi dical nal 044 [facility] 2019-04-05 2019-04-05 Outpatient R JOCE [facility] [id number] Univers 13:15:00 14:32:32 WONDIFUL ity o f [facility] 2019-04-05 2019-04-05 Office [facility] 1.2.840.114 [id number] Univers 13:11:19 14:32:32 Visit Wondiful A Health 350.1.13.10 ity of [place] 4.2.7.2.686 Kilo as Professio [phone] Mi dical nal 044 [facility] 2019-04-04 2019-04-04 Telephone [facility] 1.2.067.841 [id number] Univers 00:00:00 00:00:00 Daniel [place] 350.1.13.10 ity of [place]2.[place].2.[place] [phone] Mi dical nal 059 [facility] 2019-04-01 2019-04-01 Musical String Maker 2, Adc Lab [facility] 1.2.840.114 [id number] Univers 11:11:10 11:26:10 Visit Daniel Pérez 350.1.13.10 ity of [place]2.7.2.[place] Profess[place] [phone] Mi dical nal 353 [facility] 2019-04-01 2019-04-01 Outpatient [facility] [id number] Univers 11:15:00 11:15:00 DANIEL ity o f [facility] 2019-04-01 2019-04-01 Office [facility] 1.2.840.114 [id number] Univers 09:49:17 11:01:30 Visit Daniel Albrecht 350.1.13.10 ity of [place] 4[place]2.7.2.[place] [phone] Mi dical nal 059 [facility] 2019-04-01 2019-04-01 Orders Doctor TIJERINA 1.2.840.114 [id number] Univers 00:00:00 00:00:00 Only Unassigned, MACKENZIE 350.1.13.10 ity of [place] [facility] 4.2.7.2.686 Kilo as [phone] [address] 2018-08-03 2018-08-03 Outpatient R JOCE [facility] [id number] Univers 12:45:00 12:45:00 WONDIFUL ity o paula [facility] Results Test Description Test Time Test Comments Results Result Comments Source N-TERMINAL PRO-BNP 2022-09-08 21:21:23 Test Item Value Reference Range Interpretation Comme nts NT-proBNP (test code = 07753-2) 969 pg/mL <=125 ALEXIS (test code = ALEXIS) Result Indeterminate-Consider causes of NT-proBNP elevation other than Heart failure such as acute coronary syndrome, pulmonary embolism, pulmonary hypertension, sepsis, stroke, and renal dysfunction. Lab Interpretation (test code = 93957-8) Abnormal [facility]. METABOLIC PANEL (17592)2022-09-08 21:14:26 Test Item Value Reference Range Interpretation Comments NA (test code = 139 mmol/L 135-145 6030008608) K (test code = 3.6 mmol/L 3.5-5.0 9753536983) CL (test code = 101 mmol/L 98-108 1681832688) CO2 TOTAL (test code = 31 mmol/L 23-31 6888812423) AGAP (test code = 7 2-16 6251385108) BUN (test code = 15 mg/dL 7-23 5723914560) GLUCOSE (test code = 149 mg/dL 70-110 H 8066847798) CREATININE (test code = 0.50 mg/dL 0.50-1.04 3701289377) TOTAL BILI (test code = 0.6 mg/dL 0.1-1.1 3482858210) CALCIUM (test code = 8.7 mg/dL 8.6-10.6 7483193229) T PROTEIN (test code = 6.4 g/dL 6.3-8.2 3735490593) ALBUMIN (test code = 3.7 g/dL 3.5-5.0 0943952787) ALK PHOS (test code = 90 U/L 34-122 0822777413) ALTv (test code = 19 U/L 5-35 2-6) AST(SGOT) (test code = 27 U/L 13-40 1202625537) eGFR (test code = 117.0 mL/min/1.73m2 2967812490) ALEXIS (test code = ALEXIS) Association of [...] tests). Lab Interpretation Abnormal (test code = 64746-2) [facility] WITH [id number] 18:51:11 Test Item Value Reference Range Interpretation Comments WBC (test code = 7.51 See_Comment [Automated 6890-2) message] The sy stem which generated this [...] (test code = 57.1 fL 39.0-49.9 H 74649-2) RDW-CV (test code = 20.9 % 12.0-15.5 H 788-0) PLT (test code = 313 See_Comment [Automated 777-3) message] The sy stem which generated this result transmitted reference range : 166 - 358 10*3/ ?L. The reference r nanci was not used to interpret this result as normal/abnormal . MPV (test code = 10.3 fL 9.5-12.9 20855-6) NRBC/100 WBC (test 0.0 See_Comment [Automat ed code = 0564525487) message] The system which generated this result transmitted reference range : 0.0 - 10.0 /100 WBCs. The refer ence range was not u sed to interpret th is result as normal/abnormal . NRBC x10^3 (test code See_Comment [Auto mated = 3749053421) message] The s ystem which generated this result transmitted reference range : 10*3/?L. The reference range was not used to interpret this result as normal/abnormal . GRAN MAT (NEUT) % 63.2 % (test code = 770-8) IMM GRAN % (test code 0.10 % = 1416578016) LYMPH % (test code = 26.6 % 736-9) MONO % (test code = 7.6 % 5905-5) EOS % (test code = 2.1 % 713-8) BASO % (test code = 0.4 % 706-2) GRAN MAT x10^3(ANC) 4.74 10*3/uL 1.88-7.09 (test code = 5378627243) IMM GRAN x10^3 (test 0.00-0.06 code = 3358755992) LYMPH x10^3 (test code 2.00 10*3/uL 1.32-3.29 = 731-0) MONO x10^3 (test code 0.57 10*3/uL 0.33-0.92 = 742-7) EOS x10^3 (test code = 0.16 10*3/uL 0.03-0.39 711-2) BASO x10^3 (test code 0.03 10*3/uL 0.01-0.07 = 704-7) Lab Interpretation Abnormal (test code = 04347-9) [facility] WITH [id number] 18:51:11 Test Item Value Reference Range Interpretation Comments WBC (test code = 7.51 See_Comment [Automated 8390-2) message] The sy stem which generated this [...] (test code = 57.1 fL 39.0-49.9 H 15567-7) RDW-CV (test code = 20.9 % 12.0-15.5 H 788-0) PLT (test code = 313 See_Comment [Automated 777-3) message] The sy stem which generated this result transmitted reference range : 166 - 358 10*3/ ?L. The reference r nanci was not used to interpret this result as normal/abnormal . MPV (test code = 10.3 fL 9.5-12.9 26262-6) NRBC/100 WBC (test 0.0 See_Comment [Automat ed code = 2072688353) message] The system which generated this result transmitted reference range : 0.0 - 10.0 /100 WBCs. The refer ence range was not u sed to interpret th is result as normal/abnormal . NRBC x10^3 (test code See_Comment [Auto mated = 3759354137) message] The s ystem which generated this result transmitted reference range : 10*3/?L. The reference range was not used to interpret this result as normal/abnormal . GRAN MAT (NEUT) % 63.2 % (test code = 770-8) IMM GRAN % (test code 0.10 % = 3149872856) LYMPH % (test code = 26.6 % 736-9) MONO % (test code = 7.6 % 5905-5) EOS % (test code = 2.1 % 713-8) BASO % (test code = 0.4 % 706-2) GRAN MAT x10^3(ANC) 4.74 10*3/uL 1.88-7.09 (test code = 2467968939) IMM GRAN x10^3 (test 0.00-0.06 code = 0264596008) LYMPH x10^3 (test code 2.00 10*3/uL 1.32-3.29 = 731-0) MONO x10^3 (test code 0.57 10*3/uL 0.33-0.92 = 742-7) EOS x10^3 (test code = 0.16 10*3/uL 0.03-0.39 711-2) BASO x10^3 (test code 0.03 10*3/uL 0.01-0.07 = 704-7) Lab Interpretation Abnormal (test code = 04465-0) [id number] 15:02:10 Test Item Value Reference Range Interpretation Comments NT-proBNP (test code = 782 pg/mL <=450 H 7544011389) ALEXIS (test code = ALEXIS) Biotin has been reported to cause a negative bias, interpret results relative to patient's use of biotin. Lab Interpretation (test Abnormal code = 34077-5) [facility] MET[facility]OLIC [facility] (NA, K, CL, CO2, GLUCOSE, BUN, CREATININE, CA)2022-06-11 14:53:52 Test Item Value Reference Range Interpretation Comments NA (test code = 139 mmol/L 135-145 6209584417) K (test code = 4.5 mmol/L 3.5-5.0 8550495222) CL (test code = 103 mmol/L 98-108 6130227892) CO2 TOTAL (test code = 30 mmol/L 23-31 4794900599) AGAP (test code = 6 2-16 7413405660) BUN (test code = 17 mg/dL 7-23 4880411176) GLUCOSE (test code = 134 mg/dL 70-110 H 1992268785) CREATININE (test code = 0.57 mg/dL 0.50-1.04 9359747357) CALCIUM (test code = 9.0 mg/dL 8.6-10.6 9295240261) eGFR (test code = 100.6 mL/min/1.73m2 3995390295) ALEXIS (test code = ALEXIS) Association of [...] tests). Lab Interpretation Abnormal (test code = 76176-4) [facility]-Glucose [id number] 11:00:26 Test Item Value Reference Range Interpretation Comments POC-Glucose Meter (test 139 mg/dL 70-110 H : TE STED AT [facility] code = 1538) [address] [facility], 770 30: Compound Specialist/Techni socrates ID = [id number] for Sridevi Galvan Lab Interpretation (test Abnormal code = 37076-0) [facility]-Glucose [id number] 11:00:26 Test Item Value Reference Range Interpretation Comments POC-Glucose Meter (test 139 mg/dL 70-110 H : TE STED AT [facility] code = 1538) [address] [facility], 770 30: Compound Specialist/Techni socrates ID = [id number] for Anabel Galvanrina Lab Interpretation (test Abnormal code = 72038-4) [facility] [id number] 11:00:26 Test Item Value Reference Range Interpretation Comments POC-Glucose Meter (test 139 mg/dL 70-110 H : TE STED AT [facility] code = 1538) [address] [facility], 770 30: Compound Specialist/Techni socrates ID = [id number] for Amanda Galvana Lab Interpretation (test Abnormal code = 61360-6) [facility] [id number] 11:00:26 Test Item Value Reference Range Interpretation Comments POC-Glucose Meter (test 139 mg/dL 70-110 H : TE STED AT [facility] code = 1538) [address] [place] [address], [facility] 30: Compound Specialist/Techni socrates ID = [id number] for Amanda Galvana Lab Interpretation (test Abnormal code = 82155-3) [facility] [id number] 11:00:26 Test Item Value Reference Range Interpretation Comments POC-Glucose Meter (test 139 mg/dL 70-110 H : TE STED AT [facility] code = 1538) [address] [place] [address], [facility] 30: Compound Specialist/Techni socrates ID = [id number] for Amanda Galvana Lab Interpretation (test Abnormal code = 18170-7) [facility] [id number] 11:00:26 Test Item Value Reference Range Interpretation Comments POC-GLUCOSE METER 139 mg/dL 70-110 H : TESTED A T [facility] 6720 (BEAKER) (test code = [facility], 1538) [address]: Compound Specialist/Techni socrates ID = [id number] for Co ok, Sridevi POCT-GLUCOSE [id number] 08:28:34 Test Item Value Reference Range Interpretation Comments POC-GLUCOSE METER 147 mg/dL 70-110 H : TESTED A T [facility] 6720 (BEAKER) (test code = [facility], 1538) [address]: Compound Specialist/Techni socrates ID = [id number] for Co [place], Sridevi BASIC METABOLIC [id number] 05:30:33 Test Item Value Reference Range Interpretation [...] not appl icable for dialysis patien ts Compound Specialist ID - TERRELL [id number] 05:30:33 Test Item Value Reference Range Interpretation Comments MAGNESIUM (BEAKER) (test code = 2.1 mg/dL 1.6-2.6 627) Compound Specialist ID - TERRELL GCBC W/PLT COUNT & AUTO [id number] 05:08:16 Test Item Value Reference Range Interpretation [...] PERCENT (BEAKER) (test code = 2801) POCT-GLUCOSE [id number] 22:18:08 Test Item Value Reference Range Interpretation Comments POC-GLUCOSE METER 150 mg/dL 70-110 H : Notified RN/MD: (AJIT) (test code = TESTED AT [facility] 7362 2281) [facility], [address]: Compound Specialist/Techni socrates ID = [id number] for HERNÁN SMALLWOOD POCT-GLUCOSE [id number] 18:35:11 Test Item Value Reference Range Interpretation Comments POC-GLUCOSE METER 153 mg/dL 70-110 H : TESTED A T [facility] 6720 (BEAKER) (test code [facility], = 1538) [address]: Compound Specialist/Techni socrates ID = [id number] for BRODERICK VEE POCT-GLUCOSE [id number] 12:18:53 Test Item Value Reference Range Interpretation Comments POC-GLUCOSE METER 149 mg/dL 70-110 H : TESTED A T [facility] 6720 (BEAKER) (test code [facility], = 1538) [address]: Compound Specialist/Techni socrates ID = [id number] for BRODERICK VEE POCT-GLUCOSE [id number] 09:02:22 Test Item Value Reference Range Interpretation Comments POC-GLUCOSE METER 138 mg/dL 70-110 H : TESTED A T [facility] 6720 (BEAKER) (test code [facility], = 1538) [address]: Compound Specialist/Techni socrates ID = [id number] for BRODERICK VEE BASIC METABOLIC [id number] 06:05:05 Test Item Value Reference Range Interpretation [...] (test code = 697) EGFR (BEAKER) 85 Interpretati on of eGFR (test code = mL/min/1.73 values Stage De scription 1092) sq m Result G1 Isabel l or high >=90 G2 Mildly decreased 60-89 G3a Mildl y to moderately 45-5 9 G3b Moderately to s everely 30-44 G4 Severl y decreased 15-29 G5 Kidney failure <15Reported eGF R is based on the CKD-EPI 202 equation that d oes not use a race coefficientEsti mated GFR is not as accur ate as Creatinine Dominique cassandra in predicting glom erular filtration rate . Estimated GFR is not appl icable for dialysis patien ts Compound Specialist ID - [id number] 06:05:05 Test Item Value Reference Range Interpretation Comments MAGNESIUM (BEAKER) (test code = 2.1 mg/dL 1.6-2.6 627) Compound Specialist ID - [id number] 06:05:05 Test Item Value Reference Range Interpretation Comments PHOSPHORUS (BEAKER) (test code = 4.8 mg/dL 2.3-4.7 H 604) Compound Specialist ID - SONIAOCBC W/PLT COUNT & AUTO [id number] 05:46:55 Test Item Value Reference Range Interpretation [...] PERCENT (BEAKER) (test code = 2801) POCT-GLUCOSE [id number] 20:25:43 Test Item Value Reference Range Interpretation Comments POC-GLUCOSE METER 153 mg/dL 70-110 H : TESTED A T [facility] 6720 (BEAKER) (test code = [facility], 153) [address]: Compound Specialist/Techni socrates ID = [id number] for Felicia Watkins POCT-GLUCOSE [id number] 18:10:56 Test Item Value Reference Range Interpretation Comments POC-GLUCOSE METER 162 mg/dL 70-110 H : TESTED A T [facility] 6720 (BEAKER) (test code [facility], = 1538) 07[address]: Compound Specialist/Techni socrates ID = [id number] for LATT IMORE - CARA, BRODERICK POCT-GLUCOSE [id number] 13:16:14 Test Item Value Reference Range Interpretation Comments POC-GLUCOSE METER 133 mg/dL 70-110 H : TESTED A T [facility] 6720 (BEAKER) (test code [facility], = 1538) 60[address]: Compound Specialist/Techni socrates ID = [id number] for LATT IMORE - CARA, BRODERICK POCT-GLUCOSE [id number] 08:50:00 Test Item Value Reference Range Interpretation Comments POC-GLUCOSE METER 122 mg/dL 70-110 H : TESTED A T [facility] 6720 (BEAKER) (test code [facility], = 1538) [address]: Compound Specialist/Techni socraets ID = [id number] for NEGRITO PINO James MARROQUIN BRODERICK CBC W/PLT COUNT & AUTO [id number] 05:50:43 Test Item Value Reference Range Interpretation [...] 0.00-1.00 PERCENT (BEAKER) (test code = 2801) [id number] 05:40:36 Test Item Value Reference Range Interpretation Comments PHOSPHORUS (BEAKER) 3.8 mg/dL 2.3-4.7 Specimen moderately (test code = 604) hemolyzed Compound Specialist ID - AAHAMIDBASIC METABOLIC [id number] 05:40:36 Test Item Value Reference Range Interpretation [...] De scription 1092) sq m Result G1 Norm al or high >=90 G2 Mildly decreased 60-89 G3a Mildl y to moderately 45-5 9 G3b Moderately to s everely 30-44 G4 Severl y decreased 15-29 G5 Kidne y failure <15Reported eGF R is based on the CKD-EPI 2020 equation that d oes not use a race coefficientEsti mated GFR is not as accur ate as Creatinine Dominiuqe cassandra in predicting glom erular filtration rate . Estimated GFR is not appl icable for dialysis patien ts Compound Specialist ID - [id number] 05:40:35 Test Item Value Reference Range Interpretation Comments MAGNESIUM (BEAKER) 2.2 mg/dL 1.6-2.6 Specimen moderately (test code = 627) hemolyzed Compound Specialist ID - AAHAMIDPOCT-GLUCOSE [id number] 00:20:31 Test Item Value Reference Range Interpretation Comments POC-GLUCOSE METER 136 mg/dL 70-110 H : TESTED A T [facility] 6720 (BEAKER) (test code = [facility], 1538) [address]: Compound Specialist/Techni socrates ID = [id number] for Zev akers (contract)Francisco POCT-GLUCOSE [id number] 16:54:24 Test Item Value Reference Range Interpretation Comments POC-GLUCOSE METER 160 mg/dL 70-110 H : TESTED A T [facility] 6720 (BEAKER) (test code = [facility], 1538) 739[address]: Compound Specialist/Techni socrates ID = [id number] for Co sadia, Sridevi POCT-GLUCOSE [id number] 15:00:16 Test Item Value Reference Range Interpretation Comments POC-GLUCOSE METER 169 mg/dL 70-110 H : TESTED A T [facility] 6720 (BEAKER) (test code = [facility], 1538) 177[address]: Compound Specialist/Techni socrates ID = [id number] for Iam macias (contract), Roberto th HEMOGLOBIN [id number] 08:42:39 Test Item Value Reference Range Interpretation [...] 5.7- 6.4% indicates increased risk for diabetes (prediabetes)."Compound Specialist ID - ADM [id number] 04:27:27 Test Item Value Reference Range Interpretation Comments MAGNESIUM (BEAKER) 2.1 mg/dL 1.6-2.6 Specimen slightly (test code = 627) hemolyzed Compound Specialist ID - [id number] 04:27:27 Test Item Value Reference Range Interpretation Comments PHOSPHORUS (BEAKER) 3.0 mg/dL 2.3-4.7 Specimen slightly (test code = 604) hemolyzed Compound Specialist ID - MARCOBASIC METABOLIC [id number] 04:27:27 Test Item Value Reference Range Interpretation [...] not appl icable for dialysis patien ts Compound Specialist ID - MARCOCBC W/PLT COUNT & AUTO [id number] 04:02:29 Test Item Value Reference Range Interpretation [...] PERCENT (BEAKER) (test code = 2801) POCT-GLUCOSE [id number] 00:54:42 Test Item Value Reference Range Interpretation Comments POC-GLUCOSE METER 196 mg/dL 70-110 H : TESTED A T [facility] 67[address] ([facility]) (test code = [facility] Braulio [facility], 1538) [address]: Compound Specialist/Techni socrates ID = [id number] for JAY BAILEY HIGH SENSITIVITY TROPONIN [id number] 19:05:12 Test Item Value Reference Range Interpretation Comments HIGH SENSITIVITY TROPONIN I (test 43 pg/ml <=17 H code = 0129589) Compound Specialist ID - BSThe BODY WELDER STAT High Sensitivity Troponin-I results should be used in conjunctionwith other diagnostic information such as ECG, clinical observations and information, and patient symptoms to aid in the diagnosis of [place].POCT-GLUCOSE [id number] 17:15:39 Test Item Value Reference Range Interpretation Comments POC-GLUCOSE METER 267 mg/dL 70-110 H : TESTED A T [facility] [address] ([facility]) (test code = [facility], 153) [address]: Compound Specialist/Techni socrates ID = [id number] for Sridevi Flores 2D Echo W/Doppler(CW/PW/Color)2022-05-28 16:04:49[facility]CW/PW/Color)2022-05-28 16:04:49[facility](CW/PW/Color) 2022-05-28 16:04:49[facility](CW/PW/Color)2022-05-28 16:04:49E[facility]Do[facility]CW/PW/Color)2022-05-28 16:04:49Ejection FractionSLEH ECHO [facility]ARTLAB [facility] [id number] 12:13:16 Test Item Value Reference Range Interpretation Comments POC-GLUCOSE METER 257 mg/dL 70-110 H : Notified RN/MD: (AJIT) (test code = TESTED AT [facility] 6720 1538) [facility], [address]: Compound Specialist/Techni socrates ID = [id number] for LL OYD, TIKEYA TSH/FREE T4 IF [id number] 12:08:26 Test Item Value Reference Range Interpretation Comments THYROID STIMULATING HORMONE 0.911 uIU/mL 0.350-4.940 (BEAKER) (test code = 772) Compound Specialist ID - MMHIGH SENSITIVITY TROPONIN [id number] 11:54:08 Test Item Value Reference Range Interpretation Comments HIGH SENSITIVITY TROPONIN I (test 68 pg/ml <=17 H code = 1485332) Compound Specialist ID - MMThe BODY WELDER STAT High Sensitivity Troponin-I results should be used in conjunctionwith other diagnostic information such as ECG, clinical observations and information, and patient symptoms to aid in the diagnosis of MN.CBC W/PLT COUNT & AUTO [id number] 11:19:14 Test Item Value Reference Range Interpretation [...] (BEAKER) (test code = 2801) Respiratory Panel [id number] 11:14:11 Test Item Value Reference Range Interpretation Comments Human Metapneumovirus Not detected Not detected, (test code = 47600-9) Equivocal Rhinovirus (test code = Not detected Not detected, 16210-6) Equivocal INFLUENZA A (NO Not detected Not detected, SUBTYPE) (test code = Equivocal 02150-4) Influenza A subtype H1 (test code = 96851-1) Influenza A Subtype H3 (test code = 60653-3) Influenza A Subtype H1-2009 (test code = 48652-4) Influenza B (test code Not detected Not detected, = 76626-1) Equivocal Respiratory Syncytial Not detected Not detected, Virus (test code = Equivocal 48629-8) Parainfluenza Virus 1 Not detected Not detected, (test code = 41860-2) Equivocal Parainfluenza Virus 2 Not detected Not detected, (test code = 07181-4) Equivocal Parainfluenza virus 3 Not detected Not detected, (test code = 51739-2) Equivocal Parainfluenza Virus 4 Not detected Not detected, (test code = 23594-1) Equivocal Adenovirus (test code = Not detected Not detected, 02312-6) Equivocal Coronavirus 229E (test Not detected Not detected, code = 06463-8) Equivocal Coronavirus HKU1 (test Not detected Not detected, code = 75432-8) Equivocal Coronavirus NL63 (test Not detected Not detected, code = 98741-5) Equivocal Coronavirus OC43 (test Not detected Not detected, code = 31202-5) Equivocal Bordetella Pertussis Not detected Not detected, (test code = 59027-1) Equivocal Chlamydophila Not detected Not detected, Pneumoniae (test code = Equivocal 59241-1) Mycoplasma Pneumoniae Not detected Not detected, (test code = 55135-5) Equivocal Severe Acute Not detected Not detected, Gkuejnewoud-CyV-4 (test Equivocal code = 50362-6) Bordtella Parapertussis Not detected Not detected, (test code = 51680-1) Equivocal ALEXIS (test code = ALEXIS) Other viruses and bacteria not targeted by this PCR panel cannot be excluded; therefore clinical correlation and follow up of serology, culture results, and other molecular studies is required. The results are not intended to be used as the sole means for clinical diagnosis or patient management decisions. This sample was tested at the [facility] Molecular Diagnostics Laboratory using the [employer] Respiratory Panel. It is FDA cleared and has been verified and approved by the [facility] for clinical use on nasopharyngeal swab specimens. The performance of the FilmArray RP has not been established in individuals who received influenza vaccine. Recent administration of a nasal influenza vaccine may cause false positive results for Influenza A and/orInfluenza B. [facility] [id number] 11:14:11 Test Item Value Reference Range Interpretation Comments Human Metapneumovirus Not detected Not detected, (test code = 35062-7) Equivocal Rhinovirus (test code = Not detected Not detected, 94062-7) Equivocal INFLUENZA A (NO Not detected Not detected, SUBTYPE) (test code = Equivocal 74800-2) Influenza A subtype H1 (test code = 88040-3) Influenza A Subtype H3 (test code = 59220-4) Influenza A Subtype H1-2009 (test code = 29701-5) Influenza B (test code Not detected Not detected, = 76867-6) Equivocal Respiratory Syncytial Not detected Not detected, Virus (test code = Equivocal 98072-0) Parainfluenza Virus 1 Not detected Not detected, (test code = 68877-9) Equivocal Parainfluenza Virus 2 Not detected Not detected, (test code = 27149-0) Equivocal Parainfluenza virus 3 Not detected Not detected, (test code = 87547-3) Equivocal Parainfluenza Virus 4 Not detected Not detected, (test code = 07428-2) Equivocal Adenovirus (test code = Not detected Not detected, 04581-6) Equivocal Coronavirus 229E (test Not detected Not detected, code = 74157-0) Equivocal Coronavirus HKU1 (test Not detected Not detected, code = 34289-4) Equivocal Coronavirus NL63 (test Not detected Not detected, code = 55972-0) Equivocal Coronavirus OC43 (test Not detected Not detected, code = 75614-0) Equivocal Bordetella Pertussis Not detected Not detected, (test code = 04883-5) Equivocal Chlamydophila Not detected Not detected, Pneumoniae (test code = Equivocal 01803-9) Mycoplasma Pneumoniae Not detected Not detected, (test code = 44304-3) Equivocal Severe Acute Not detected Not detected, Uyfrwzbiaiy-TyR-0 (test Equivocal code = 64382-8) Bordtella Parapertussis Not detected Not detected, (test code = 78840-0) Equivocal ALEXIS (test code = ALEXIS) Other viruses and bacteria not targeted by this PCR panel cannot be excluded; therefore clinical correlation and follow up of serology, culture results, and other molecular studies is required. The results are not intended to be used as the sole means for clinical diagnosis or patient management decisions. This sample was tested at the [facility] Diagnostics Laboratory using the [employer] Respiratory Panel. It is FDA cleared and has been verified and approved by the [facility] for clinical use on nasopharyngeal swab specimens. The performance of the FilmArray RP has not been established in individuals who received influenza vaccine. Recent administration of a nasal influenza vaccine may cause false positive results for Influenza A and/orInfluenza B. [facility] [id number] 11:14:11 Test Item Value Reference Range Interpretation Comments Human Metapneumovirus Not detected Not detected, (test code = 14111-7) Equivocal Rhinovirus (test code = Not detected Not detected, 50093-2) Equivocal INFLUENZA A (NO Not detected Not detected, SUBTYPE) (test code = Equivocal 14427-0) Influenza A subtype H1 (test code = 83010-5) Influenza A Subtype H3 (test code = 21157-6) Influenza A Subtype H1-2009 (test code = 96218-5) Influenza B (test code Not detected Not detected, = 75507-2) Equivocal Respiratory Syncytial Not detected Not detected, Virus (test code = Equivocal 62089-8) Parainfluenza Virus 1 Not detected Not detected, (test code = 84156-7) Equivocal Parainfluenza Virus 2 Not detected Not detected, (test code = 59769-2) Equivocal Parainfluenza virus 3 Not detected Not detected, (test code = 91779-6) Equivocal Parainfluenza Virus 4 Not detected Not detected, (test code = 51569-1) Equivocal Adenovirus (test code = Not detected Not detected, 66797-4) Equivocal Coronavirus 229E (test Not detected Not detected, code = 34972-7) Equivocal Coronavirus HKU1 (test Not detected Not detected, code = 73262-8) Equivocal Coronavirus NL63 (test Not detected Not detected, code = 60421-9) Equivocal Coronavirus OC43 (test Not detected Not detected, code = 85741-6) Equivocal Bordetella Pertussis Not detected Not detected, (test code = 25848-8) Equivocal Chlamydophila Not detected Not detected, Pneumoniae (test code = Equivocal 60663-1) Mycoplasma Pneumoniae Not detected Not detected, (test code = 25063-5) Equivocal Severe Acute Not detected Not detected, Ylztfmbtqjn-VrX-8 (test Equivocal code = 85090-2) Bordtella Parapertussis Not detected Not detected, (test code = 54486-6) Equivocal ALEXIS (test code = ALEXIS) Other viruses and bacteria not targeted by this PCR panel cannot be excluded; therefore clinical correlation and follow up of serology, culture results, and other molecular studies is required. The results are not intended to be used as the sole means for clinical diagnosis or patient management decisions. This sample was tested at the [facility] using the [employer] Respiratory Panel. It is FDA cleared and has been verified and approved by the [facility] for clinical use on nasopharyngeal swab specimens. The performance of the FilmArray RP has not been established in individuals who received influenza vaccine. Recent administration of a nasal influenza vaccine may cause false positive results for Influenza A and/orInfluenza B. [facility] [id number] 11:14:11 Test Item Value Reference Range Interpretation Comments Human Metapneumovirus Not detected Not detected, (test code = 84627-1) Equivocal Rhinovirus (test code = Not detected Not detected, 20868-4) Equivocal INFLUENZA A (NO Not detected Not detected, SUBTYPE) (test code = Equivocal 45119-8) Influenza A subtype H1 (test code = 59635-6) Influenza A Subtype H3 (test code = 30969-5) Influenza A Subtype H1-2009 (test code = 06952-8) Influenza B (test code Not detected Not detected, = 40150-4) Equivocal Respiratory Syncytial Not detected Not detected, Virus (test code = Equivocal 08892-9) Parainfluenza Virus 1 Not detected Not detected, (test code = 64371-6) Equivocal Parainfluenza Virus 2 Not detected Not detected, (test code = 69087-9) Equivocal Parainfluenza virus 3 Not detected Not detected, (test code = 55617-0) Equivocal Parainfluenza Virus 4 Not detected Not detected, (test code = 70488-7) Equivocal Adenovirus (test code = Not detected Not detected, 47365-9) Equivocal Coronavirus 229E (test Not detected Not detected, code = 98845-8) Equivocal Coronavirus HKU1 (test Not detected Not detected, code = 35492-7) Equivocal Coronavirus NL63 (test Not detected Not detected, code = 28220-2) Equivocal Coronavirus OC43 (test Not detected Not detected, code = 88551-9) Equivocal Bordetella Pertussis Not detected Not detected, (test code = 61791-1) Equivocal Chlamydophila Not detected Not detected, Pneumoniae (test code = Equivocal 41502-4) Mycoplasma Pneumoniae Not detected Not detected, (test code = 73810-2) Equivocal Severe Acute Not detected Not detected, Grqzqgcimxt-EyZ-4 (test Equivocal code = 18372-9) Bordtella Parapertussis Not detected Not detected, (test code = 67580-6) Equivocal ALEXIS (test code = ALEXIS) Other viruses and bacteria not targeted by this PCR panel cannot be excluded; therefore clinical correlation and follow up of serology, culture results, and other molecular studies is required. The results are not intended to be used as the sole means for clinical diagnosis or patient management decisions. This sample was tested at the [facility] using the [employer] Respiratory Panel. It is FDA cleared and has been verified and approved by the [facility] for clinical use on nasopharyngeal swab specimens. The performance of the FilmArray RP has not been established in individuals who received influenza vaccine. Recent administration of a nasal influenza vaccine may cause false positive results for Influenza A and/orInfluenza B. [facility] [id number] 11:14:11 Test Item Value Reference Range Interpretation Comments Human Metapneumovirus Not detected Not detected, (test code = 74447-2) Equivocal Rhinovirus (test code = Not detected Not detected, 43964-9) Equivocal INFLUENZA A (NO Not detected Not detected, SUBTYPE) (test code = Equivocal 76936-8) Influenza A subtype H1 (test code = 30466-7) Influenza A Subtype H3 (test code = 94650-1) Influenza A Subtype H1-2009 (test code = 93980-7) Influenza B (test code Not detected Not detected, = 53093-2) Equivocal Respiratory Syncytial Not detected Not detected, Virus (test code = Equivocal 42162-4) Parainfluenza Virus 1 Not detected Not detected, (test code = 38281-2) Equivocal Parainfluenza Virus 2 Not detected Not detected, (test code = 40029-3) Equivocal Parainfluenza virus 3 Not detected Not detected, (test code = 73069-1) Equivocal Parainfluenza Virus 4 Not detected Not detected, (test code = 61462-9) Equivocal Adenovirus (test code = Not detected Not detected, 35180-8) Equivocal Coronavirus 229E (test Not detected Not detected, code = 74036-8) Equivocal Coronavirus HKU1 (test Not detected Not detected, code = 68108-5) Equivocal Coronavirus NL63 (test Not detected Not detected, code = 58880-3) Equivocal Coronavirus OC43 (test Not detected Not detected, code = 14691-2) Equivocal Bordetella Pertussis Not detected Not detected, (test code = 50083-1) Equivocal Chlamydophila Not detected Not detected, Pneumoniae (test code = Equivocal 28989-7) Mycoplasma Pneumoniae Not detected Not detected, (test code = 84962-7) Equivocal Severe Acute Not detected Not detected, Teeuqiqjewd-LdE-2 (test Equivocal code = 06671-8) Bordtella Parapertussis Not detected Not detected, (test code = 38652-8) Equivocal ALEXIS (test code = ALEXIS) Other viruses and bacteria not targeted by this PCR panel cannot be excluded; therefore clinical correlation and follow up of serology, culture results, and other molecular studies is required. The results are not intended to be used as the sole means for clinical diagnosis or patient management decisions. This sample was tested at the [facility] using the [employer] Respiratory Panel. It is FDA cleared and has been verified and approved by the [facility] for clinical use on nasopharyngeal swab specimens. The performance of the FilmArray RP has not been established in individuals who received influenza vaccine. Recent administration of a nasal influenza vaccine may cause false positive results for Influenza A and/orInfluenza B. [facility] [id number] 11:14:11 Test Item Value Reference Range Interpretation [...] SEVERE ACUTE RESPIRATORY Not detected Not detected, [id number]-HHWDXHPIKSK-4 Equivocal (test code = 0007954) BORDETELLA PARAPERTUSSIS Not detected Not detected, (BKR) (test code = 9672535) Equivocal Other viruses and bacteria not targeted by this PCR panel cannot be excluded; therefore clinical correlation and follow up of serology, culture results, and other molecular studies is required. The results are not intended to be used as the sole means for clinical diagnosis or patient management decisions. This sample was tested at the [facility] using the [employer] Respiratory Panel. It is FDA cleared and has been verified and approved by the [facility] for clinical use on nasopharyngeal swab specimens.The performance of the FilmArrayRP has not been established in individuals who received influenza vaccine. Recent administration of a nasal influenza vaccine may cause false positive results for Influenza A and/orInfluenza B.[id number] 10:49:18 Test Item Value Reference Range Interpretation Comments PROCALCITONIN (BEAKER) (test code = < ng/mL <0.05 3036) SEPSIS RISK (ng/mL)Low: 0.05-0.50Intermediate: 0.51-2.00High: >=2.01HIGH SENSITIVITY TROPONIN [id number] 10:36:58 Test Item Value Reference Range Interpretation Comments HIGH SENSITIVITY TROPONIN I (test 69 pg/ml <=17 H code = 0778117) Compound Specialist ID - MMThe BODY WELDER STAT High Sensitivity Troponin-I results should be used in conjunctionwith other diagnostic information such as ECG, clinical observations and information, and patient symptoms to aid in the diagnosis of MN.B-TYPE NATRIURETIC FACTOR (BNP)2022-05-28 10:36:39 Test Item Value Reference Range Interpretation Comments B-TYPE NATRIURETIC PEPTIDE (BEAKER) 367 pg/mL 0-100 H (test code = 700) Compound Specialist ID - [id number] 09:16:13 Test Item Value Reference Range Interpretation Comments PHOSPHORUS (BEAKER) (test code = 3.0 mg/dL 2.3-4.7 604) Compound Specialist ID - MMCOMPREHENSIVE METABOLIC [id number] 09:16:12 Test Item Value Reference Range Interpretation [...] not appl icable for dialysis patien ts Compound Specialist ID - [id number] 09:16:12 Test Item Value Reference Range Interpretation Comments MAGNESIUM (BEAKER) (test code = 2.0 mg/dL 1.6-2.6 627) Compound Specialist ID - MMRAD, CHEST, 1 VIEW, NON [id number] 09:03:00Reason for exam:- >shortness of breathShould this be performed at the bedside?->Yes [facility] 1935 Sex: FFINAL [...] MDReport Verified Date/Time: 05/28/2022 09:03:39 LACTIC ACID, [id number] 08:50:45 Test Item Value Reference Range Interpretation Comments LACTATE BLOOD VENOUS 3.84 mmol/L 0.50-2.00 H Specime n moderately (2) (BEAKER) (test hemolyzed code = 2092) Compound Specialist ID - [id number] 08:47:24 Test Item Value Reference Range Interpretation Comments FIBRINOGEN LEVEL (BEAKER) (test 207 mg/dl 225-434 L code = 658) PROTHROMBIN TIME/[id number] 08:47:03 Test Item Value Reference Range Interpretation Comments PROTIME (BEAKER) (test code = 14.1 seconds 11.9-14.2 759) INR (BEAKER) (test code = 370) 1.11 <=5.90 RECOMMENDED COUMADIN/WARFARIN INR THERAPY RANGESSTANDARD DOSE: 2.0 - 3.0 Includes: PROPHYLAXIS for venous thrombosis, systemic embolization; TREATMENT for venous thrombosis and/or pulmonary embolus.HIGH RISK: Target INR is 2.5-3.5 for patients with mechanical heart valves.Blood gas, [id number] 08:43:53 Test Item Value Reference Range Interpretation Comments pH, Arterial (test code 7.52 7.35-7.45 H = 2744-1) pCO2, Arterial (test 32 See_Comment L [Autom ated message] code = 2019-8) The system [employer] generated this result transmit kendrick reference range : 35 - 45 mm Hg. The reference range was not used to interpret this result as normal/abnormal . pO2, Arterial (test 187 See_Comment H [Automa kendrick message] code = 2703-7) The system [employer] generated this result transmit kendrick reference range [...] 40.0 Lab Interpretation Abnormal (test code = 41416-9) [facility], [id number] 08:43:53 Test Item Value Reference Range Interpretation Comments pH, Arterial (test code 7.52 7.35-7.45 H = 2744-1) pCO2, Arterial (test 32 See_Comment L [Autom ated message] code = 2019-) The system [employer] generated this result transmit kendrick reference range : 35 - 45 mm Hg. The reference range was not used to interpret this result as normal/abnormal . pO2, Arterial (test 187 See_Comment H [Automa kendrick message] code = 2703-7) The system [employer] generated this result transmit kendrick reference range [...] 40.0 Lab Interpretation Abnormal (test code = 77960-3) [facility] gas, [id number] 08:43:53 Test Item Value Reference Range Interpretation Comments pH, Arterial (test code 7.52 7.35-7.45 H = 2744-1) pCO2, Arterial (test 32 See_Comment L [Autom ated message] code = 2018-09) The system [employer] generated this result transmit kendrick reference range : 35 - 45 mm Hg. The reference range was not used to interpret this result as normal/abnormal . pO2, Arterial (test 187 See_Comment H [Automa kendrick message] code = 2703-7) The system [employer] generated this result transmit kendrick reference range [...] 40.0 Lab Interpretation Abnormal (test code = 85456-9) [facility], [id number] 08:43:53 Test Item Value Reference Range Interpretation Comments pH, Arterial (test code 7.52 7.35-7.45 H = 2744-1) pCO2, Arterial (test 32 See_Comment L [Autom ated message] code = 2018-) The system [employer] generated this result transmit kendrick reference range : 35 - 45 mm Hg. The reference range was not used to interpret this result as normal/abnormal . pO2, Arterial (test 187 See_Comment H [Automa kendrick message] code = 2703-7) The system [employer] generated this result transmit kendrick reference range [...] 40.0 Lab Interpretation Abnormal (test code = 38804-2) [facility] gas, [id number] 08:43:53 Test Item Value Reference Range Interpretation Comments pH, Arterial (test code 7.52 7.35-7.45 H = 2744-1) pCO2, Arterial (test 32 See_Comment L [Autom ated message] code = 2018-09) The system [employer] generated this result transmit kendrick reference range : 35 - 45 mm Hg. The reference range was not used to interpret this result as normal/abnormal . pO2, Arterial (test 187 See_Comment H [Automa kendrick message] code = 2703-7) The system [employer] generated this result transmit kendrick reference range [...] 40.0 Lab Interpretation Abnormal (test code = 39265-1) [facility], [id number] 08:43:53 Test Item Value Reference Range Interpretation [...] (test code = 1819) 40.0 CBC WITH [id number] 00:09:18 Test Item Value Reference Range Interpretation Comments WBC (test code = See_Comment [Automated 9257-2) message] The sy stem which generated this result transmitted reference range : 4.30 - 11.10 10*3/?L. The reference range was not used to interpret this result as normal/abnormal . RBC (test code = See_Comment [Automated 575-8) message] The sy stem which generated this [...] RDW-SD (test code = 45.1 fL 39.0-49.9 66428-0) RDW-CV (test code = 15.3 % 12.0-15.5 788-0) PLT (test code = See_Comment [Automated 777-3) message] The sy stem which generated this result transmitted reference range : 166 - 358 10*3/ ?L. The reference r nanci was not used to interpret this result as normal/abnormal . MPV (test code = 11.4 fL 9.5-12.9 05319-4) NRBC/100 WBC (test See_Comment [Automat ed code = [id number]) message] The system which generated this result transmitted reference range : 0.0 - 10.0 /100 WBCs. The refer ence range was not u sed to interpret th is result as normal/abnormal . NRBC x10^3 (test code See_Comment [Auto mated = [id number]) message] The s ystem which generated this result transmitted reference range : 10*3/?L. The reference range was not used to interpret this result as normal/abnormal . GRAN MAT (NEUT) % 57.0 % (test code = 770-8) IMM GRAN % (test code 0.30 % = [id number]) LYMPH % (test code = 32.1 % 736-9) MONO % (test code = 7.8 % 5905-5) EOS % (test code = 2.5 % 713-8) BASO % (test code = 0.3 % 706-2) GRAN MAT x10^3(ANC) 4.26 10*3/uL 1.88-7.09 (test code = 9000446690) IMM GRAN x10^3 (test 0.00-0.06 code = 6455743655) LYMPH x10^3 (test code 2.40 10*3/uL 1.32-3.29 = 731-0) MONO x10^3 (test code 0.58 10*3/uL 0.33-0.92 = 742-7) EOS x10^3 (test code = 0.19 10*3/uL 0.03-0.39 711-2) BASO x10^3 (test code 0.01-0.07 = 704-7) Lab Interpretation Abnormal (test code = 66884-7) [facility] WITH [id number] 00:09:18 Test Item Value Reference Range Interpretation [...] RDW-SD (test code = 45.1 fL 39.0-49.9 49432-5) RDW-CV (test code = 15.3 % 12.0-15.5 788-0) PLT (test code = 332 See_Comment [Automated 777-3) message] The sy stem which generated this result transmitted reference range : 166 - 358 10*3/ ?L. The reference r nanci was not used to interpret this result as normal/abnormal . MPV (test code = 11.4 fL 9.5-12.9 60035-3) NRBC/100 WBC (test 0.0 See_Comment [Automat ed code = [id number]) message] The system which generated this result transmitted reference range : 0.0 - 10.0 /100 WBCs. The refer ence range was not u sed to interpret th is result as normal/abnormal . NRBC x10^3 (test code See_Comment [Auto mated = 3100802404) message] The s ystem which generated this result transmitted reference range : 10*3/?L. The reference range was not used to interpret this result as normal/abnormal . GRAN MAT (NEUT) % 57.0 % (test code = 770-8) IMM GRAN % (test code 0.30 % = 9546267133) LYMPH % (test code = 32.1 % 736-9) MONO % (test code = 7.8 % 5905-5) EOS % (test code = 2.5 % 713-8) BASO % (test code = 0.3 % 706-2) GRAN MAT x10^3(ANC) 4.26 10*3/uL 1.88-7.09 (test code = 5247347251) IMM GRAN x10^3 (test 0.00-0.06 code = 5753739231) LYMPH x10^3 (test code 2.40 10*3/uL 1.32-3.29 = 731-0) MONO x10^3 (test code 0.58 10*3/uL 0.33-0.92 = 742-7) EOS x10^3 (test code = 0.19 10*3/uL 0.03-0.39 711-2) BASO x10^3 (test code 0.01-0.07 = 704-7) Lab Interpretation Abnormal (test code = 59833-1) [facility] WITH [id number] 00:09:18 Test Item Value Reference Range Interpretation Comments WBC (test code = 7.47 See_Comment [Automated 3125-2) message] The sy stem which generated this result transmitted reference range : 4.30 - 11.10 10*3/?L. The reference range was not used to interpret this result as normal/abnormal . RBC (test code = 4.42 See_Comment [Automated 626-8) message] The sy stem which generated this [...] RDW-SD (test code = 45.1 fL 39.0-49.9 77176-1) RDW-CV (test code = 15.3 % 12.0-15.5 788-0) PLT (test code = 332 See_Comment [Automated 777-3) message] The sy stem which generated this result transmitted reference range : 166 - 358 10*3/ ?L. The reference r nanci was not used to interpret this result as normal/abnormal . MPV (test code = 11.4 fL 9.5-12.9 17674-7) NRBC/100 WBC (test 0.0 See_Comment [Automat ed code = 3115961746) message] The system which generated this result transmitted reference range : 0.0 - 10.0 /100 WBCs. The refer ence range was not u sed to interpret th is result as normal/abnormal . NRBC x10^3 (test code See_Comment [Auto mated = 0900525681) message] The s ystem which generated this result transmitted reference range : 10*3/?L. The reference range was not used to interpret this result as normal/abnormal . GRAN MAT (NEUT) % 57.0 % (test code = 770-8) IMM GRAN % (test code 0.30 % = 2635782874) LYMPH % (test code = 32.1 % 736-9) MONO % (test code = 7.8 % 5905-5) EOS % (test code = 2.5 % 713-8) BASO % (test code = 0.3 % 706-2) GRAN MAT x10^3(ANC) 4.26 10*3/uL 1.88-7.09 (test code = 9934977480) IMM GRAN x10^3 (test 0.00-0.06 code = 1462285318) LYMPH x10^3 (test code 2.40 10*3/uL 1.32-3.29 = 731-0) MONO x10^3 (test code 0.58 10*3/uL 0.33-0.92 = 742-7) EOS x10^3 (test code = 0.19 10*3/uL 0.03-0.39 711-2) BASO x10^3 (test code 0.01-0.07 = 704-7) Lab Interpretation Abnormal (test code = 68187-8) [facility]. METABOLIC PANEL ([id number])2021-09-03 20:37:56 Test Item Value Reference Range Interpretation Comments NA (test code = 138 mmol/L 135-145 0447861461) K (test code = 4.4 mmol/L 3.5-5.0 8202165015) CL (test code = 99 mmol/L 98-108 8054740462) CO2 TOTAL (test code = 28 mmol/L 23-31 3359383518) AGAP (test code = 11 2-16 7912485612) BUN (test code = 18 mg/dL 7-23 4427849980) GLUCOSE (test code = 122 mg/dL 70-110 H 4213120972) CREATININE (test code = 0.59 mg/dL 0.50-1.04 5806856647) TOTAL BILI (test code = 0.5 mg/dL 0.1-1.9 4866692674) CALCIUM (test code = 9.0 mg/dL 8.6-10.6 1777928997) T PROTEIN (test code = 6.6 g/dL 6.3-8.2 6135376930) ALBUMIN (test code = 4.1 g/dL 3.5-5.0 9988751358) ALK PHOS (test code = 91 U/L 34-122 3996767171) ALTv (test code = 21 U/L 5-35 1742-6) AST(SGOT) (test code = 27 U/L 13-40 7105261800) eGFR (test code = 96.9 mL/min/1.73m2 6391776720) ALEXIS (test code = ALEXIS) Association of [...] tests). Lab Interpretation Abnormal (test code = 12838-5) [facility] Test Item Value Reference Range Interpretation Comments LIPASE (test code = 4081169727) 184 U/L 0-220 Lab Interpretation (test code = Normal 97955-1) [facility] WITH [id number] 19:27:42 Test Item Value Reference Range Interpretation Comments WBC (test code = 8.34 See_Comment [Automated 6748-2) message] The sy stem which generated this result transmitted reference range : 4.30 - 11.10 10*3/?L. The reference range was not used to interpret this result as normal/abnormal . RBC (test code = 4.38 See_Comment [Automated 746-6) message] The sy stem which generated this [...] RDW-SD (test code = 48.8 fL 39.0-49.9 24822-8) RDW-CV (test code = 15.2 % 12.0-15.5 788-0) PLT (test code = 291 See_Comment [Automated 777-3) message] The sy stem which generated this result transmitted reference range : 166 - 358 10*3/ ?L. The reference r nanci was not used to interpret this result as normal/abnormal . MPV (test code = 11.2 fL 9.5-12.9 48436-4) NRBC/100 WBC (test 0.0 See_Comment [Automat ed code = 2767524836) message] The system which generated this result transmitted reference range : 0.0 - 10.0 /100 WBCs. The refer ence range was not u sed to interpret th is result as normal/abnormal . NRBC x10^3 (test code See_Comment [Auto mated = 3090410537) message] The s ystem which generated this result transmitted reference range : 10*3/?L. The reference range was not used to interpret this result as normal/abnormal . GRAN MAT (NEUT) % 60.5 % (test code = 770-8) IMM GRAN % (test code 0.40 % = 7934431113) LYMPH % (test code = 27.5 % 736-9) MONO % (test code = 8.3 % 5905-5) EOS % (test code = 2.9 % 713-8) BASO % (test code = 0.4 % 706-2) GRAN MAT x10^3(ANC) 5.06 10*3/uL 1.88-7.09 (test code = 6969101987) IMM GRAN x10^3 (test 0.03 10*3/uL 0.00-0.06 code = 7622698558) LYMPH x10^3 (test code 2.29 10*3/uL 1.32-3.29 = 731-0) MONO x10^3 (test code 0.69 10*3/uL 0.33-0.92 = 742-7) EOS x10^3 (test code = 0.24 10*3/uL 0.03-0.39 711-2) BASO x10^3 (test code 0.03 10*3/uL 0.01-0.07 = 704-7) Lab Interpretation Abnormal (test code = 74809-0) [facility], NON-SPECIFIC, UP TO 1 HOUR 2019-07-14 09:44:00Reason for exam:->cystoFINAL REPORT A fluoroscopic unit was utilized for a procedure performed in the operating room. No interpretation was requested. Please refer to the operative report regarding findings. Please refer to PACS for patient radiation dose information. Signed: JR Johnson Robert MDReport Verified Date/Time: 07/14/2019 09:44:15 Reading Location: [address] Neuro Reading Room BLOOD [id number] 11:00:00 Test Item Value Reference Range Interpretation Comments CULTURE (BEAKER) (test No growth in 5 days code = 1095) BLOOD [id number] 11:00:00 Test Item Value Reference Range Interpretation Comments CULTURE (BEAKER) (test No growth in 5 days code = 1095) URINE [id number] 11:07:00 Test Item Value Reference Range Interpretation Comments CULTURE (BEAKER) (test code = 1095) No growth ANG, NEPHROSTOMY, PERC, EXTERNAL [id number] 11:00:00Reason for exam:- >request left PCN for left obstructing stone, feversFINAL REPORT Procedure: Percutaneous nephrostomy catheter placement. History: Left ureteric calculus with obstruction, infection. 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 Ballet Professor: Not Konstantin mckeon Modality: Ultrasound and fluoroscopy. [...] local infiltration Medicines: Not applicable Contrast medium: [id number], 15 cc. Estimated blood loss: < 5 [...] anesthesia and dermatotomy, under real-time ultrasonographic guidance, [id number] Chiba needle was advanced into the calyx. After confirming the recovery of urine, a guidewire was advanced into the collecting system under fluoroscopic guidance. Contrast injection confirmed satisfactory position of the access system. Over the wire, following sequential dilatation of the tract, an 8.5 Vietnamese nephrostomy catheter was placed, pigtail locked in [...] bladder. Impression:Successful ultrasound and fluoroscopic guided 8.5 Vietnamese nephrostomy catheter placement left kidney via a posterior inferior calyx as described above. Further management dictated by the clinical scenario. The nephrostomy catheter(s) should be exchanged at the latest in three months. Thank you for the opportunity to assist in the care of your patient. Signed: Mario, Bradford MDReport Verified Date/Time: 07/10/2019 11:00:12 Reading Location: [place] [id number] Angio Body Reading Room BASIC METABOLIC [id number] 07:33:00 Test Item Value Reference Range Interpretation [...] 1092) DATA TO CALCULA TE ESTIMATED GFR. Compound Specialist ID - MOINE [id number] 07:25:00 Test Item Value Reference Range Interpretation Comments MAGNESIUM (BEAKER) (test code = 2.2 mg/dL 1.6-2.6 627) Compound Specialist ID - MONIE CHEPATIC FUNCTION [id number] 07:25:00 Test Item Value Reference Range Interpretation [...] (test code = 43 U/L 6-55 347) Compound Specialist ID - MONIE CCBC W/PLT COUNT & AUTO [id number] 06:54:00 Test Item Value Reference Range Interpretation [...] % 0-1 PERCENT (BEAKER) (test code = 2800) BASIC METABOLIC [id number] 05:38:00 Test Item Value Reference Range Interpretation [...] 1092) DATA TO CALCULA TE ESTIMATED GFR. Compound Specialist ID - [id number] 05:24:00 Test Item Value Reference Range Interpretation Comments MAGNESIUM (BEAKER) (test code = 1.8 mg/dL 1.6-2.6 627) Compound Specialist ID - LAHEPATIC FUNCTION [id number] 05:24:00 Test Item Value Reference Range Interpretation [...] (test code = 36 U/L 6-55 347) Compound Specialist ID - LACBC W/PLT COUNT & AUTO [id number] 04:34:00 Test Item Value Reference Range Interpretation [...] (BEAKER) (test code = 2801) LACTIC ACID, [id number] 20:25:00 Test Item Value Reference Range Interpretation Comments LACTATE BLOOD VENOUS (2) (BEAKER) 0.69 mmol/L 0.50-2.20 (test code = 2872) Compound Specialist ID - NTPRAD, CHEST, 1 VIEW, NON [id number] 16:24:00Reason for exam:->feverShould this be performed at the bedside?->YesFINAL REPORT CLINICAL HISTORY: fever TECHNIQUE: 1 view of the chest. COMPARISON: None IMPRESSION: There is possible retrocardiac left lower lobe consolidation, for which clinical correlation for pneumonia is requested. There is blunting of the left costophrenic angle. The heart isnot enlarged. Signed: Rich Rebolledo MDRthe [facility] of [facility] [place] Verified Date/Time: 07/08/2019 16:24:52 Reading Location: [address] Neuro Reading Room HEMOGLOBIN [id number] 13:56:00 Test Item Value Reference Range Interpretation Comments HEMOGLOBIN A1C (BEAKER) (test code = 6.1 % 4.3-6.1 368) URINALYSIS W/ REFLEX URINE [id number] 13:15:00 Test Item Value Reference Range Interpretation [...] = 516) SOURCE(BEAKER) (test code = 2795) Compound Specialist ID - [auto]Compound Specialist ID - techRESPIRATORY PANEL [id number] 12:14:00 Test Item Value Reference Range Interpretation [...] decisions. This sample was tested at the [facility] using the Press PlayArray Respiratory Panel. It is FDA cleared and has been verified and approved by the [facility] for clinical use on nasopharyngeal swab specimens.The performance of the FilmArrayRP has not been established in individuals who received influenza vaccine. Recent administration of a nasal influenza vaccine may cause false positive results for Influenza A and/orInfluenza B.SARS-COV2/RT-PCR ([facility])2019-07-08 11:26:00 Test Item Value Reference Range Interpretation Comments SARS-COV2/RT-PCR (test Not Detected Not Detected, Negative code = 7110415) SARS-COV-2 PERFORMING LAB [facility] (test code = 6699951) Negative results do not preclude SARS-CoV-2 infection [...] of the Act.Fact Sheet for Healthcare Pro viders:https://www.[employer].Handpressions/Documents/Xpert%20Xpress%20SARS%20CoV-2/Fact%20Sh eets/302-3802%56ASFK-EXH-7%20HEALTHCARE%20PROVIDERS%20FACT%20SHEET.pdfFact Sheet for Healthcare Patients:https://www.[employer].Handpressions/Documents/Xpert%20Xpress%20SARS%20CoV-2/Fact%20Sheets/302-3801%20SARS-COV -2%20PATIENT%20FACT%20SHEET.pdfPerforming Laboratory:[place] [address] [place] [place], [place] [address]SXMWM METABOLIC [id number] 10:06:00 Test Item Value Reference Range Interpretation [...] 1092) DATA TO CALCULA TE ESTIMATED GFR. Compound Specialist ID - [id number] 10:05:00 Test Item Value Reference Range Interpretation Comments MAGNESIUM (BEAKER) (test code = 2.0 mg/dL 1.6-2.6 627) Compound Specialist ID - NTPHEPATIC FUNCTION [id number] 10:05:00 Test Item Value Reference Range Interpretation [...] (test code = 30 U/L 6-55 347) Compound Specialist ID - [id number] 09:53:00 Test Item Value Reference Range Interpretation [...] 2.5-3.5 for patients wiht mechanical heart valves.PROTHROMBIN TIME/[id number] 09:51:00 Test Item Value Reference Range Interpretation [...] for patients wiht mechanical heart valves.LACTIC ACID, [id number] 09:50:00 Test Item Value Reference Range Interpretation Comments LACTATE BLOOD VENOUS (2) (BEAKER) 2.87 mmol/L 0.50-2.20 H (test code = 2872) Compound Specialist ID - NTPCBC W/PLT COUNT & AUTO [id number] 09:41:00 Test Item Value Reference Range Interpretation [...] Notes Date/Time Note Provider Source 2022-09-08 11:30:00 5806-05-02T30:30:00Formatting of this note [facility] might be different from the original.Elevated NT-proBNP noted at 969 which is increased compared to 2 months ago done in our hospital but better than the recent admission in the hospital from [place].CMP within acceptable limits.Patient's son has habit of changing the Lasix as per the need. Please ask what the current dose of Lasix he has been giving her.I also recommend referring her to heart failure clinic in [place] for further management of her underlying heart failure. 94199-0Cglnnioy tizgVQ2848-91-81K19:55:54Progress [id number] 9|[id number] for patient [address] K[id number] YXNHFUAHFMHDPLSK3640-78-72D05:55:541.2.840 .901109.1.72.3.15|1.2.840.558562.1.13.104. [id number]
[2022-12-16 23:18] LABS: Absolute Lymphocytes (CBC) 2.5 K/uL (0.7-4.9); Hematocrit 37.9 % (36.0-45.0); Lymphocytes % 29.7 % (15.3-44.8); MCV 81.3 fL (80-100); MPV 7.9 fL (7.6-11.3); Platelets 267 thou/uL (152-406); RBC Red Blood Cell Count 4.66 M/uL (3.86-4.86)
[2022-12-16 23:40] LABS: ALT/SGPT 27 U/L (13-56); Albumin 3.2 g/dL (3.4-5.0); Alkaline Phosphatase 112 U/L (45-117); BUN Blood Urea Nitrogen 16 mg/dL (7-18); Bicarbonate 30 mEq/L (21-32); Bilirubin Total 0.4 mg/dL (0.2-1.0); Glomerular Filtration Rate 86 ml/min (=/>90); Glucose Level 174 mg/dL (74-106); NT PRO-BNP 714 pg/mL (<450); Protein, Total 6.9 g/dL (6.4-8.2); Sodium Level 133 mEq/L (136-145); Troponin High Sensitivity 40.5 pg/mL (<58.9)
[2022-12-16 23:41] LABS: AST/SGOT 25 U/L (15-37); Bilirubin Direct < 0.1 mg/dL (0-0.2); Bilirubin Indirect, Calculated ND mg/dL (0.2-0.8); Potassium 3.4 mEq/L (3.5-5.1)
[2022-12-16] MEDS ORDERED: FUROSEMIDE 40 MG/4 ML VIAL ONE (23:46)
--- NOTE | 2022-12-17 01:50 | EDPHYS ---
Physician Documentation [facility] Name: Erika Jacobson Age: 87 yrs Sex: Female : 1935 Arrival Date: 12/16/2022 Time: 22:39 Bed 13 Private MD: ED Physician Bossman Bower HPI: 12/16 23:10 This 87 yrs old Female presents to ER via Unassigned with complaints of rt Shortness Of Breath. 23:10 Patient with history of congestive heart failure presents to the ED with shortness of rt breath started about 1.5 hours prior to arrival. She reports worsening peripheral edema. Reports a cough. Denies other acute complaints at this time, symptoms are moderate severity, no other aggravating or alleviating factors.. Historical: - Allergies: 23:14 No Known Allergies; vc1 - Home Meds: 23:14 aspirin 81 mg Oral chew 1 tab once daily [Active]; atorvastatin 20 mg oral tablet 1 tab vc1 every day at bedtime [Active]; carvedilol 3.125 mg oral tablet 0.5 tab 2 times per day [Active]; Lasix 40 mg Oral tablet 2 tabs morning and noon [Active]; - PMHx: 23:14 Asthma; Congestive heart failure; CVA; Hyperlipidemia; Hypertension; vc1 - PSHx: 23:14 choleycestectomy; hysterectomy; kidney stones; vc1 - Immunization history:: Client reports receiving the 2nd dose of the Covid vaccine, Flu vaccine is up to date. - Social history:: Smoking status: Patient denies any tobacco usage or history of. ROS: 23:10 Constitutional: Negative for fever, chills, and weight loss, Abdomen/GI: Negative for rt abdominal pain, nausea, vomiting, diarrhea, and constipation, MS/Extremity: Negative for injury and deformity, Skin: Negative for injury, rash, and discoloration, Neuro: Negative for headache, weakness, numbness, tingling, and seizure, Psych: Negative for depression, anxiety, suicide ideation, homicidal ideation, and hallucinations, 23:10 Cardiovascular: Positive for edema, Negative for chest pain, 23:10 Respiratory: Positive for cough, shortness of breath, Exam: 23:10 ECG was reviewed by the Attending Physician. rt 23:10 Musculoskeletal/extremity: 2+ lower extremity edema bilaterally.. Vital Signs: 23:00 BP 149 / 62; Pulse 96; Resp 16; Pulse Ox 92% on R/A; km8 23:09 BP 131 / 68; Pulse 93; Resp 18; Temp 98; Pulse Ox 97% ; Weight 63.5 kg; Height 4 ft. 11 vc1 in. ; Pain 0/10; 12/17 00:00 BP 116 / 72; Pulse 84; Resp 14; Pulse Ox 93% on R/A; km8 01:00 BP 147 / 77; Pulse 99; Pulse Ox 93% on R/A; km8 02:00 BP 132 / 59; Pulse 81; Resp 14 S; Pulse Ox 94% on R/A; km8 12/16 23:09 Body Mass Index 28.28 (63.50 kg, 149.86 cm) vc1 23:09 Pain Scale: Adult vc1 MDM: 12/16 22:47 Patient medically screened. rt 12/17 01:53 Differential diagnosis: Anxiety Reaction CHF exacerbation, pneumonia. Data reviewed: rt vital signs, nurses notes, old medical records, lab test result(s), EKG, radiologic studies. Consideration of Admission/Observation Escalation of care including admission/observation considered. Patient diuresed over 1 L in the ED, is symptomatically improving, no hypoxia. No elevation of troponin, only mild pulmonary edema on chest x-ray. Is stable for outpatient care, no immediate indications for admission to the hospital.. I considered the following discharge prescriptions or medication management in the emergency department Medications were administered in the Emergency Department. See MAR. Independent interpretation of the following test(s) in the Emergency Department X-Ray: My interpretation is Mild pulmonary edema symptomatic rotation of x-ray images. Test considered but Not performed: CT: Low suspicion for pulmonary embolism, CT angiogram not indicated. Counseling: I had a detailed discussion with the patient and/or guardian regarding the historical points, exam findings, and any diagnostic results supporting the discharge/admit diagnosis, lab results, radiology results, the need for outpatient follow up, to return to the emergency department if symptoms worsen or persist or if there are any questions or concerns that arise at home. Response to treatment: the patient's symptoms have markedly improved after treatment. 12/16 22:54 Order name: Basic Metabolic Panel; Complete Time: 23:43 rt 12/16 22:54 Order name: CBC with Diff; Complete Time: 23:43 rt 12/16 22:54 Order name: LFT's; Complete Time: 23:43 rt 12/16 22:54 Order name: Magnesium; Complete Time: 23:43 rt 12/16 22:54 Order name: NT PRO-BNP; Complete Time: 23:43 rt 12/16 22:54 Order name: Troponin HS; Complete Time: 23:43 rt 12/16 22:54 Order name: XRAY Chest (1 view) rt 12/16 22:54 Order name: EKG; Complete Time: 22:55 rt 12/16 22:54 Order name: Cardiac monitoring; Complete Time: 23:16 rt 12/16 22:54 Order name: EKG - Nurse/Tech; Complete Time: 23:02 rt 12/16 22:54 Order name: IV Saline Lock; Complete Time: 23:31 rt 12/16 22:54 Order name: Labs collected and sent; Complete Time: 23:31 rt 12/16 22:54 Order name: O2 Per Protocol; Complete Time: 23:31 rt 12/16 22:54 Order name: O2 Sat Monitoring; Complete Time: 23:31 rt EC/03 23:10 Rate is 97 beats/min. Rhythm is regular, Normal Sinus Rhythm with No ectopy, Left rt bundle branch block. Left axis deviation noted. IL interval is normal. QT interval is normal. No Q waves. Administered Medications: 23:36 Drug: Furosemide IVP 40 mg IVP once; give over 2 minutes Route: IVP; Site: right hand; [facility] 12/17 02:20 Follow up: Response: No adverse reaction [facility] Disposition Summary: 12/17/22 01:49 Discharge Ordered Notes: Location: Home rt Problem: an acute exacerbation rt Symptoms: have improved rt Condition: Stable rt Diagnosis - Acute pulmonary edema rt Followup: rt - With: Private Physician - When: 2 - 3 days - Reason: Discharge Instructions: - Discharge Summary Sheet rt - Pulmonary Edema rt Forms: - Medication Reconciliation Form rt - Thank You Letter rt - Antibiotic Education rt - Prescription Opioid Use rt - Patient Portal Instructions rt - Leadership Thank You Letter rt Signatures: Dispatcher [employer] Gayatri Marte RN RN vc1 Bossman Bower MD MD rt Ale Rose RN RN km8
--- NOTE | 2022-12-17 01:50 | ER ---
Nurse's Notes [facility] Name: Erika Jacobson Age: 87 yrs Sex: Female : 1935 Arrival Date: 12/16/2022 Time: 22:39 Bed 13 Private MD: Diagnosis: Acute pulmonary edema Presentation: 12/16 23:09 Chief complaint: Patient's son or daughter states: My mother has fluid retention and vc1 sometimes it gets to her lungs and she can't breath. She's felt bad for 3 days but the last 1.5 hours she has gotten worse. Coronavirus screen: Vaccine status: Patient reports receiving the 2nd dose of the covid vaccine. Alexandreaa Client denies travel out of the [place] in the last 14 days. At this time, the client does not indicate any symptoms associated with coronavirus-19. Ebola Screen: Patient negative for fever greater than or equal to 101.5 degrees Fahrenheit, and additional compatible Ebola Virus Disease symptoms Patient denies exposure to infectious person. Patient denies travel to an Ebola-affected area in the 21 days before illness onset. No symptoms or risks identified at this time. Initial Sepsis Screen: Does the patient meet any 2 criteria? No. Patient's initial sepsis screen is negative. Does the patient have a suspected source of infection? No. Patient's initial sepsis screen is negative. Risk Assessment: Do you want to hurt yourself or someone else? Patient reports no desire to harm self or others. Onset of symptoms was December 14, 2022. 23:09 Method Of Arrival: Wheelchair vc1 23:09 Acuity: ISHAN 3 vc1 Triage Assessment: 23:12 General: Appears in no apparent distress. uncomfortable, Behavior is cooperative, vc1 appropriate for age. Pain: Denies pain. EENT: No deficits noted. No signs and/or symptoms were reported regarding the EENT system. Neuro: Level of Consciousness is awake, alert, obeys commands, Oriented to person, place, time, situation, Appropriate for age. Cardiovascular: No deficits noted. Respiratory: Reports shortness of breath at rest Airway is patent Respiratory effort is even, unlabored, Respiratory pattern is regular, symmetrical, Onset: The symptoms/episode began/occurred today, the patient has mild shortness of breath. GI: No deficits noted. No signs and/or symptoms were reported involving the gastrointestinal system. : No deficits noted. No signs and/or symptoms were reported regarding the genitourinary system. Derm: No deficits noted. No signs and/or symptoms reported regarding the dermatologic system. Musculoskeletal: No deficits noted. No signs and/or symptoms reported regarding the musculoskeletal system. Historical: - Allergies: 23:14 No Known Allergies; vc1 - Home Meds: 23:14 aspirin 81 mg Oral chew 1 tab once daily [Active]; atorvastatin 20 mg oral tablet 1 tab vc1 every day at bedtime [Active]; carvedilol 3.125 mg oral tablet 0.5 tab 2 times per day [Active]; Lasix 40 mg Oral tablet 2 tabs morning and noon [Active]; - PMHx: 23:14 Asthma; Congestive heart failure; CVA; Hyperlipidemia; Hypertension; vc1 - PSHx: 23:14 choleycestectomy; hysterectomy; kidney stones; vc1 - Immunization history:: Client reports receiving the 2nd dose of the Covid vaccine, Flu vaccine is up to date. - Social history:: Smoking status: Patient denies any tobacco usage or history of. Screenin:13 [facility] ED Fall Risk Assessment (Adult) History of falling in the last 3 months, vc1 including since admission No falls in past 3 months (0 pts) Confusion or Disorientation No (0 pts) Intoxicated or Sedated No (0 pts) Impaired Gait Yes (1 pt) Mobility Assist Device Used Yes (1 pt) Altered Elimination No (0 pt) Score/Fall Risk Level 0 - 2 = Low Risk Oriented to surroundings, Maintained a safe environment, Educated pt \T\ family on fall prevention, incl call for assistance when getting out of bed. Abuse screen: Denies threats or abuse. Nutritional screening: No deficits noted. Tuberculosis screening: No symptoms or risk factors identified. Assessment: 23:00 General: Appears in no apparent distress. comfortable, Behavior is calm, cooperative, km8 appropriate for age. 23:00 Pain: Denies pain. Neuro: Liu Agitation-Sedation Scale (RASS): 0 - Alert and Calm km8 Level of Consciousness is awake, alert, obeys commands, Oriented to person, place, time, situation. Cardiovascular: Denies chest pain, Capillary refill < 3 seconds Patient's skin is warm and dry. Rhythm is regular. Respiratory: Airway is patent Respiratory effort is even, unlabored, Respiratory pattern is regular, symmetrical, Breath sounds are clear bilaterally. GI: No deficits noted. No signs and/or symptoms were reported involving the gastrointestinal system. Abdomen is flat. : No deficits noted. No signs and/or symptoms were reported regarding the genitourinary system. EENT: No deficits noted. No signs and/or symptoms were reported regarding the EENT system. Derm: No deficits noted. No signs and/or symptoms reported regarding the dermatologic system. Skin is intact, Skin is dry, Skin is normal, Skin temperature is cool. Musculoskeletal: No signs and/or symptoms reported regarding the musculoskeletal system. Range of motion: intact in all extremities. 12/17 00:23 Reassessment: Patient appears in no apparent distress at this time. No changes from [facility] previously documented assessment. Patient and/or family updated on plan of care and expected duration. Pain level reassessed. Patient is alert, oriented x 3, equal unlabored respirations, skin warm/dry/pink. 01:13 Reassessment: Patient appears in no apparent distress at this time. No changes from [facility] previously documented assessment. Patient and/or family updated on plan of care and expected duration. Pain level reassessed. Patient is alert, oriented x 3, equal unlabored respirations, skin warm/dry/pink. 02:03 Reassessment: Patient appears in no apparent distress at this time. No changes from [facility] previously documented assessment. Patient and/or family updated on plan of care and expected duration. Pain level reassessed. Patient is alert, oriented x 3, equal unlabored respirations, skin warm/dry/pink. Vital Signs: 12/16 23:00 BP 149 / 62; Pulse 96; Resp 16; Pulse Ox 92% on R/A; 23:09 BP 131 / 68; Pulse 93; Resp 18; Temp 98; Pulse Ox 97% ; Weight 63.5 kg; Height 4 ft. 11 vc1 in. ; Pain 0/10; 12/17 00:00 BP 116 / 72; Pulse 84; Resp 14; Pulse Ox 93% on R/A; km8 01:00 BP 147 / 77; Pulse 99; Pulse Ox 93% on R/A; 8 02:00 BP 132 / 59; Pulse 81; Resp 14 S; Pulse Ox 94% on R/A; km8 1103 23:09 Body Mass Index 28.28 (63.50 kg, 149.86 cm) vc1 23:09 Pain Scale: Adult vc1 ED Course: 12/16 22:41 Patient arrived in ED. [id number] 22:45 Bossman Bower MD is Attending Physician. rt 23:00 Client placed on continuous cardiac and pulse oximetry monitoring. NIBP monitoring km8 applied. gambling monitor on. 23:03 Ale Rose, RN is Primary Nurse. km8 23:12 Triage completed. vc1 23:12 Arm band placed on left wrist. vc1 23:14 Patient has correct armband on for positive identification. Placed in gown. Bed in low vc1 position. Client placed on continuous cardiac and pulse oximetry monitoring. NIBP monitoring applied. 23:14 Inserted saline lock: 20 gauge in right hand, using aseptic technique. Blood collected. rv 23:43 connected to purewick. km8 23:58 XRAY Chest (1 view) In Process Unspecified. EDMS 12/17 02:19 No provider procedures requiring assistance completed. IV discontinued, intact, km8 bleeding controlled, No redness/swelling at site. Pressure dressing applied. 02:20 Provided Education on: d/c teaching. km8 Administered Medications: 12/16 23:36 Drug: Furosemide IVP 40 mg IVP once; give over 2 minutes Route: IVP; Site: right hand; km8 12/17 02:20 Follow up: Response: No adverse reaction km8 Medication: 12/16 23:16 VIS not applicable for this client. vc1 Output: 12/17 01:12 Urine: 1000ml (Voided); Total: 1000ml. km8 Outcome: 01:49 Discharge ordered by . rt 02:20 Discharged to home via wheelchair, with family, km8 02:20 Condition: good 02:20 Discharge instructions given to patient, family, Instructed on discharge instructions, follow up and referral plans. Demonstrated understanding of instructions, follow-up care, 02:20 Patient left the ED. km8 Signatures: Dispatcher [employer] EDMS Georges Chávez RN RN rv Louise Quintana [email or web address] Gayatri Duncan RN RN vc1 Bossman Bower MD MD rt Ale Rose RN RN km8
[2022-12-17 02:34] VITALS: TEMP 98
[2022-12-17 02:41] VITALS: BP 132/59; O2SAT 94
--- NOTE | 2022-12-17 14:09 | RAD REPORT ---
EXAM DESCRIPTION: RAD - Chest Single View - 12/16/2022 11:56 pm CLINICAL HISTORY: The patient is 87 years old and is Female; DYSPNEA TECHNIQUE: Frontal view of the chest. COMPARISON: No relevant prior studies available. FINDINGS: Lungs: Prominent interstitial markings which may represent chronic changes and/or mild i nterstitial edema. Pleural space: Blunting of the left costophrenic angle which may indicate left pleural effusion. No pneumothorax. Heart: Unremarkable. Mediastinum: Unremarkable. Bones/joints: No acute findings. Upper abdomen: Elevation of the left hemidiaphragm. IMPRESSION: 1. Prominent interstitial markings which may represent chronic changes and/or mild int erstitial edema. 2. Blunting of the left costophrenic angle which may indicate left pleural effusion. Electronically signed by: Vaibhav Henderson MD 12/17/2022 12:32 AM CDT Due to temporary technical issues with the PACS/Fluency reporting system, reports are being signed by the in house radiologists without review as a courtesy to insure prompt reporting. The interpreting radiologist is fully responsible for the content of the report.
--- NOTE | 2022-12-24 14:42 | EKG ---
Test Date: 2022-12-16 Test Time: 22:57:27 Director Of Engineering: RONALD MEASUREMENT RESULTS: Intervals: Rate: 97 AK: 172 QRSD: 146 QT: 402 QTc: 510 [place]: P: 58 AK: 172 QRS: -49 T: 87 INTERPRETIVE STATEMENTS: Normal sinus rhythm with sinus arrhythmia Left axis deviation Left bundle branch block Abnormal ECG Compared to ECG 11/01/2022 10:15:05 No significant changes Electronically Signed On 12-24-22 14:20:52 RESIDENTIAL COLLECTIONS by Preston Tubbs
== END 2022-12-17 02:20 | disposition home or self-care (01) ==
LOC: ER 22:39
DX: J81.0 Acute pulmonary edema (principal); I50.9 Heart failure, unspecified; I10 Essential (primary) hypertension; Z86.73 Personal history of transient ischemic attack (TIA), and cerebral infarction without residual deficits; Z79.82 Long term (current) use of aspirin
CPT/HCPCS: 93005; 85025; 80048; 36415; 83735; 80076; 84484; 83880; 71045; 96374; 99285; J1940

== ENCOUNTER 2023-01-04 06:09 | Inpatient (IN) | payer OTHER ==
--- OUTSIDE RECORDS SUMMARY | 2023-01-04 06:37 | XMS REPORT | Continuity of Care Document ---
:1935 Author Organization [facility] t Address [address] [facility] [place] [address] Care Team Providers Name Role Phone Angela Cunningham MD Primary Care Physician LILIANA LI Attending Clinician Unavailable JOHNNIE FINNEY Attending Clinician Unavailable CECI LO.HGertrude Attending Clinician Unavailable ANGELA CUNNINGHAM Attending Clinician Unavailable ANGELA CUNNINGHAM Attending Clinician Unavailable Johnnie Finney MD Attending Clinician [phone] Therapist, Adc Respiratory Attending Clinician Unavailable Ceci Lo MD KGertrudeHGertrude Attending Clinician Lab, Ang - Db Attending Clinician Unavailable Doctor Unassigned, [place] Attending Clinician Unavailable 2, Adc Lab Attending Clinician Unavailable WON MATT Attending Clinician Unavailable WON MATT Attending Clinician Unavailable Pob, Adc Lab Main Attending Clinician Unavailable Samrene Lee LMSW Attending Clinician VALERIE GOODWIN Attending Clinician Unavailable Estuardo Morales MD Attending Clinician [place] MD, Kayla T Attending Clinician Jose Enrique MURGUIA, Sharyn Madera Attending Clinician Rachel MURGUIA, Dane Alex Attending Clinician [phone] Radha MURGUIA, Catherine Attending Clinician Nelly MURGUIA, Valerie No Attending Clinician Vernell MURGUIA, Won Serra Attending Clinician Nurse, Ang-Db Neurology Attending Clinician Unavailable Unknown, Attending Attending Clinician Unavailable Samuel CHAINSTITCH PANTS OUTSEAMER, Araseli Attending Clinician Ebgwendolyn CHAINSTITCH PANTS OUTSEAMER, Tamela Attending Clinician TAMELA LUCIA Attending Clinician Unavailable CHARY DONALD Attending Clinician Unavailable Chary Infante Attending Clinician DANIEL PÉREZ Attending Clinician Unavailable Bib MURGUIA, Ree Attending Clinician Only, Thom Db Test Attending Clinician Unavailable Rambo CHAINSTITCH PANTS OUTSEAMERTera Attending Clinician TERA MORALES Attending Clinician Unavailable KALYN PARADA Attending Clinician Unavailable Lyla SCHMIDTP, Amaya Attending Clinician Randal MURGUIA, Gerardo Attending [...] Attending Clinician Unavailable Mirella Villalobos Attending Clinician [phone] Shy Miller Attending Clinician Unavailable LILIANA LI Admitting Clinician Unavailable JOHNNIE FINNEY Admitting Clinician Unavailable KAYLA HUI Admitting Clinician Unavailable WON MATT Admitting Clinician Unavailable AUSTIN HOBSON Admitting Clinician Unavailable ADRIANA HARTMANN Admitting Clinician Unavailable Payers Payer Name Policy Type Policy Number Effective Date Expiration Date S kim AARP/MEDICARE [id number] 2019 COMPLETE 00:00:00 [facility] [id number] 2019 MEDICARE 00:00:00 ADVANTAGE MEDICAID [place] [id number] 2017 [place] 00:00:00 [facility] [id number] 2019 2020 [facility] - 00:00:00 00:00:00 Community MEDICARE [facility] CARE Problems Condition Condition Condition Status Onset Resolution Last Treating Co mments Source Name Details Category Date Date Treatment Clinician Date Respirator Respirator Disease Recurre [facility] failure y failure nce 4-15 Luke s 00:00: [address] Chronic Chronic Disease Active Univers diastolic diastolic 9-12 ity of heart heart 00:00: [place] failure failure 00 Medical Branch Obesity Obesity Disease Active Univers (BMI (BMI 5-28 ity of 30-39.9) 30-39.9) 00:00: [place] 00 Medical Branch Uses Uses Disease Active Univers Swazi as Swazi as -28 it y of primary primary 00:00: [place] spoken spoken 00 Medical language language Branch History of History of Disease Active Overview : Univers CVA CVA 5-28 [place] ity of (cerebrova (cerebrova 00:00: g [...] impairment impairment 9-25 it y of 00:00: 00 Medical Branch Hair loss Hair loss Disease Active Uni vers 9-25 ity of 00:00: 00 Medical Branch COVID-19 COVID-19 Disease Active Unive rs virus virus 7-20 [place] GERD GERD Disease Active Univers (gastroeso (gastroeso 7-20 it y of phageal phageal 00:00: [place] reflux reflux 00 Medical disease) disease) Branch Neuropathy Neuropathy Disease Active U nivers of both of both 7-20 ity of feet feet 00:00: [place] 00 Medical Branch Sepsis Sepsis Disease Recurre [...] pain foot pain 1-26 ity of 00:00: [place] Medical Branch Kidney Kidney Disease Active 2017-02 Univers stone stone 0-15 ity of 00:00: [place] Medical Branch Abnormal Abnormal Disease Active 2017-02 Overview: Un [place] liver liver 0-15 Formatt[place] ity of ultrasound ultrasound 00:00: g of this 00 note Medical might be Branch different from the original. 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 0-05 it y of 2 diabetes 2 [place] mellitus mellitus 00 Medica [place] Branch Essential Essential Disease Active 2016-02 Uni vers hypertensi hypertensi 0-02 it y of on on 00:00: [place] [address] Medical Branch HLD HLD Disease Active 2016-02 Univers (hyperlipi (hyperlipi 0-02 it y of demia) demia) 00:00: [place] [address] Medical Branch History of History of Disease Active 2016-02 U nivers chest pain chest pain 0-02 it y of 00:00: [address] Branch Palpitatio Palpitatio Disease Active 2016-02 U nivers ns ns 0-02 ity of 00:00: [address] Branch Osteoporos Osteoporos Disease Active U nivers is is ity of [facility] Abnormal Abnormal Disease Active Unive rs EKG EKG ity of [facility] Allergies, Adverse Reactions, Alerts Allergy Allergy Status Severity Reaction(s) Onset Inactive Treating Comm ents Source Name Type Date Date Clinician NO KNOWN Allergy Active [facility] NO KNOWN Drug Active [facility] ALLERGIE Class ity of [facility] Social History Social Habit Start Date Stop Date Quantity Comments Source Gender identity Universit y of [facility] History SDOH [facility] Alcohol Std Drinks Medica l Center History SDOH [facility] Alcohol Binge Medical Marilyn ter History SDOH [facility] Alcohol Comment Medical C enter Sexual orientation [facility] Exposure to 2022-07-02 2022-07-12 Not sure University of SARS-CoV-2 (event) 00:00:00 14:22:00 [facility] History of Social 2022-06-09 2022-06-09 Univers ity of function 00:00:00 00:00:00 [facility] Tobacco use and 2021-08-27 2021-08-27 Smokeless Universit y of exposure 00:00:00 00:00:[address] tobacco non-user [facility] dical Branch Alcohol intake 2019-07-12 2019-07-[address] [facility] 00:00:00 00:00:00 non-drinker of Medical Ce nter alcohol (finding) History SDOH 2019-07-10 2019-07-[address] [facility] Alcohol Frequency - 00:00:00 00:00:00 [facility] How often do you have a drink containing alcohol? Sex Assigned At [address] [facility] k[facility] 00:00:00 00:00:00 [facility] Smoking Status Start Date Stop Date Source Never smoked tobacco [facility] [place] [facility] Medications Ordered Filled Start Stop Current Ordering Indication Dosage Frequency Signature Comments Components Source Medication Medication Date Date Medication? Clinician (SIG) Name Name bumetanide 2022-02 Yes [id number] 3mg Take 3 Univers 1 mg tablet 1-21 tablets by it y of 00:00: mouth 2 [place] (two) Medical times [place] daily with meals. perflutren 2022-02- No [id number] 3mL 3 mL, IV Univers protein-A -15 12-28 [place], ity of microsphr 23:15: 23:00 [place] ([place] :00 dose, On Medica l injection 3 Wed Branch mL 12/28/22 at 1715, Routine bumetanide 2022-02 Yes [id number] 2mg Take 2 Univers 1 mg tablet 1-08 tablets by it y of 00:00: mouth 2 [place] (two) Medical times Branch daily with meals. bumetanide 2022-02 Yes [id number] 2mg Take 2 Univers 1 mg tablet 1-08 tablets by it y of 00:00: mouth 2 [place] (two) Medical times Branch daily with meals. bumetanide 2022-02 Yes [id number] 2mg Take 2 Univers 1 mg tablet 1-08 tablets by it y of 00:00: mouth 2 [place] [address] (two) Medical times Branch daily with meals. bumetanide 2022-02 Yes [id number] 2mg Take 2 Univers 1 mg tablet 1-08 tablets by it y of 00:00: mouth [place] (two) Medical times Branch daily with meals. bumetanide 2022-02 Yes [id number] 2mg Take 2 Univers 1 mg tablet 1-08 tablets by it y of 00:00: mouth [place] (two) Medical times Branch daily with meals. bumetanide 2022-02 Yes [id number] 2mg Take 2 Univers 1 mg tablet 1-08 tablets by it y of 00:00: mouth [place] (two) Medical times Branch daily with meals. bumetanide 2022-02 Yes [id number] 2mg Take 2 Univers 1 mg tablet 1-08 tablets by it y of 00:00: mouth [place] (two) Medical times Branch daily with meals. bumetanide 2022-02 Yes [id number] 2mg Take 2 Univers 1 mg tablet 1-08 tablets by it y of 00:00: mouth [place] (two) Medical times Branch daily with meals. bumetanide 2022-02 Yes [id number] 2mg Take 2 Univers 1 mg tablet 1-08 tablets by it y of 00:00: mouth [place] (two) Medical times Branch daily with meals. bumetanide 2022-02 Yes [id number] 2mg Take 2 Univers 1 mg tablet 1-08 tablets by it y of 00:00: mouth [place] (two) Medical times Branch daily with meals. bumetanide 2022-02 Yes [id number] 2mg Take 2 Univers 1 mg tablet 1-08 tablets by it y of 00:00: mouth [place] (two) Medical times Branch daily with meals. bumetanide 2022-02 Yes [id number] 2mg Take 2 Univers 1 mg tablet 1-08 tablets by it y of 00:00: mouth [place] (two) Medical times Branch daily with meals. bumetanide 2022-02 Yes [id number] 2mg Take 2 Univers 1 mg tablet 1-08 tablets by it y of 00:00: mouth [place] (two) Medical times Branch daily with meals. bumetanide 2022-02- No [id number] 2mg Take 2 Univers 1 mg tablet 1-08 11-21 tablets by i ty of 00:00: 00:00 mouth [place] 00 :00 (two) Medical times [place] daily with meals. spironolact 2022-02 Yes 12.5mg Take 0.5 Univers one 25 mg 0-23 tablets by ity of tablet 00:00: mouth [place] 00 daily. Medical Branch losartan 25 2022-02 Yes [id number] 12.5mg Take 0.5 Univers mg tablet 0-23 tablets by ity of 00:00: mouth [place] 00 every day Medical at [address] [place] [address] (noon). bumetanide 2022-02 Yes [id number] 1mg Take 1 Univers 1 mg tablet 0-23 tablet by ity of 00:00: mouth 2 [place] 00 (two) Medical times [place] daily with meals. spironolact 2022-02 Yes 12.5mg Take 0.5 Univers one 25 mg 0-23 tablets by ity of tablet 00:00: mouth [place] 00 daily. Medical Branch losartan 25 2022-02 Yes [id number] 12.5mg Take 0.5 Univers mg tablet 0-23 tablets by ity of 00:00: mouth [place] 00 every day Medical at [address] [place] [address] (noon). bumetanide 2022-02 Yes [id number] 1mg Take 1 Univers 1 mg tablet 0-23 tablet by ity of 00:00: mouth 2 [place] 00 (two) Medical [facility] daily with meals. spironolact 2022-02 Yes 12.5mg Take 0.5 Univers one 25 mg 0-23 tablets by ity of tablet 00:00: mouth [place] 00 daily. Medical Branch losartan 25 2022-02 Yes [id number] 12.5mg Take 0.5 Univers mg tablet 0-23 tablets by ity of 00:00: mouth [place] 00 every day Medical at [address] [place] [address] (noon). bumetanide 2022-02 Yes [id number] 1mg Take 1 Univers 1 mg tablet 0-23 tablet by ity of 00:00: mouth 2 [place] 00 (two) Medical times [place] daily with meals. spironolact 2022-02 Yes 12.5mg Take 0.5 Univers one 25 mg 0-23 tablets by ity of tablet 00:00: mouth [place] 00 daily. Medical Branch losartan 25 2022-02 Yes [id number] 12.5mg Take 0.5 Univers mg tablet 0-23 tablets by ity of 00:00: mouth [place] 00 every day Medical at [address] [place] [address] (noon). bumetanide 2022-02 Yes [id number] 1mg Take 1 Univers 1 mg tablet 0-23 tablet by ity of 00:00: mouth 2 [place] 00 (two) [facility] daily with meals. spironolact 2022-02 Yes 12.5mg Take 0.5 Univers one 25 mg 0-23 tablets by ity of tablet 00:00: mouth [place] 00 daily. Medical Branch losartan 25 2022-02 Yes [id number] 12.5mg Take 0.5 Univers mg tablet 0-23 tablets by ity of 00:00: mouth [place] 00 every day Medical at [address] [place] [address] (noon). bumetanide 2022-02 Yes [id number] 1mg Take 1 Univers 1 mg tablet 0-23 tablet by ity of 00:00: mouth 2 [place] 00 (two) [facility] daily with meals. spironolact 2022-02 Yes 12.5mg Take 0.5 Univers one 25 mg 0-23 tablets by ity of tablet 00:00: mouth [place] 00 daily. Medical Branch losartan 25 2022-02 Yes [id number] 12.5mg Take 0.5 Univers mg tablet 0-23 tablets by ity of 00:00: mouth [place] 00 every day Medical at [address] [place] [address] (noon). bumetanide 2022-02 Yes [id number] 1mg Take 1 Univers 1 mg tablet 0-23 tablet by ity of 00:00: mouth 2 [place] 00 (two) [facility] daily with meals. spironolact 2022-02 Yes 12.5mg Take 0.5 Univers one 25 mg 0-23 tablets by ity of tablet 00:00: mouth [place] 00 daily. Medical Branch losartan 25 2022-02 Yes [id number] 12.5mg Take 0.5 Univers mg tablet 0-23 tablets by ity of 00:00: mouth [place] 00 every day Medical at [address] [place] [address] (noon). bumetanide 2022- Yes [id number] 1mg Take 1 Univers 1 mg tablet 0-23 tablet by ity of 00:00: mouth 2 [place] 00 (two) [facility] times [place] daily with meals. spironolact 2022- Yes 12.5mg Take 0.5 Univers one 25 mg 0-23 tablets by ity of tablet 00:00: mouth [place] 00 daily. Medical Branch spironolact 2022-1 Yes 12.5mg Take 0.5 Univers one 25 mg 0-23 tablets by ity of tablet 00:00: mouth [place] 00 daily. Medical Branch spironolact 2022- Yes 12.5mg Take 0.5 Univers one 25 mg 0-23 tablets by ity of tablet 00:00: mouth [place] 00 daily. Medical Branch spironolact 2022- Yes 12.5mg Take 0.5 Univers one 25 mg 0-23 tablets by ity of tablet 00:00: mouth [place] 00 daily. Medical Branch spironolact 2022- Yes 12.5mg Take 0.5 Univers one 25 mg 0-23 tablets by ity of tablet 00:00: mouth [place] 00 daily. Medical Branch spironolact 2022-1 Yes 12.5mg Take 0.5 Univers one 25 mg 0-23 tablets by ity of tablet 00:00: mouth [place] 00 daily. Medical Branch spironolact 2022-1 Yes 12.5mg Take 0.5 Univers one 25 mg 0-23 tablets by ity of tablet 00:00: mouth [place] 00 daily. Medical Branch spironolact 2022- Yes 12.5mg Take 0.5 Univers one 25 mg 0-23 tablets by ity of tablet 00:00: mouth [place] 00 daily. Medical Branch spironolact 2022-1 Yes 12.5mg Take 0.5 Univers one 25 mg 0-23 tablets by ity of tablet 00:00: mouth [place] 00 daily. Medical Branch spironolact 2022-1 Yes 12.5mg Take 0.5 Univers one 25 mg 0-23 tablets by ity of tablet 00:00: mouth [place] 00 daily. Medical Branch spironolact 2022-1 Yes 12.5mg Take 0.5 Univers one 25 mg 0-23 tablets by ity of tablet 00:00: mouth [place] 00 daily. Medical Branch spironolact 2022-1 Yes 12.5mg Take 0.5 Univers one 25 mg 0-23 tablets by ity of tablet 00:00: mouth [place] 00 daily. Medical Branch spironolact 2022-1 Yes 12.5mg Take 0.5 Univers one 25 mg 0-23 tablets by ity of tablet 00:00: mouth [place] 00 daily. [facility] Branch spironolact 2022-02 Yes 12.5mg Take 0.5 Univers one 25 mg 0-23 tablets by ity of tablet 00:00: mouth [place] 00 daily. Medical Branch losartan 2022-02- No [id number] 12.5mg Take 0.5 Univers mg tablet 0-23 11-08 tablets by ity of 00:00: 00:00 mouth [place] 00 :00 every day Medical at [address] Branch (noon). bumetanide 2022-02- No [id number] 1mg Take 1 Univers 1 mg tablet 0-23 11-08 tablet by it y of 00:00: 00:00 mouth 2 [place] 00 :00 (two) Medical times Branch daily with meals. bumetanide 2022-02- No [id number] 2mg Take 2 Univers 1 mg tablet 0-23 10-23 tablets by i ty of 00:00: 00:00 mouth 2 [place] 00 :00 (two) Medical times Branch daily with meals. losartan 2022-02- No [id number] 12.5mg Take 0.5 Univers mg tablet 0-23 10-23 tablets by ity of 00:00: 00:00 mouth [place] 00 :00 daily. Medical Branch bumetanide 2022-02- No [id number] 2mg Take 2 Univers 1 mg tablet 0-23 10-23 tablets by i ty of 00:00: 00:00 mouth 2 [place] 00 :00 (two) Medical times [place] daily with meals. losartan 2022-02- No [id number] 12.5mg Take 0.5 Univers mg tablet 0-23 10-23 tablets by ity of 00:00: 00:00 mouth [place] 00 :00 daily. Medical Branch pantoprazol 2022-02 Yes [id number] 40mg Take 1 Univers e 40 mg EC 0-20 tablet by ity of tablet 00:00: mouth [place] 00 daily. Medical Branch pantoprazol 2022-02 Yes [id number] 40mg Take 1 Univers e 40 mg EC 0-20 tablet by ity of tablet 00:00: mouth [place] 00 daily. Medical Branch pantoprazol 2022-02 Yes [id number] 40mg Take 1 Univers e 40 mg EC 0-20 tablet by ity of tablet 00:00: mouth [place] 00 daily. Medical Branch pantoprazol 2022-02 Yes [id number] 40mg Take 1 Univers e 40 mg EC 0-20 tablet by ity of tablet 00:00: mouth [place] 00 daily. Medical Branch pantoprazol 2022-02 Yes [id number] 40mg Take 1 Univers e 40 mg EC 0-20 tablet by ity of tablet 00:00: mouth [place] 00 daily. Medical Branch pantoprazol 2022-02 Yes [id number] 40mg Take 1 Univers e 40 mg EC 0-20 tablet by ity of tablet 00:00: mouth [place] 00 daily. Medical Branch pantoprazol 2022-02 Yes [id number] 40mg Take 1 Univers e 40 mg EC 0-20 tablet by ity of tablet 00:00: mouth [place] 00 daily. Medical Branch pantoprazol 2022-02 Yes [id number] 40mg Take 1 Univers e 40 mg EC 0-20 tablet by ity of tablet 00:00: mouth [place] 00 daily. Medical Branch pantoprazol 2022-02 Yes [id number] 40mg Take 1 Univers e 40 mg EC 0-20 tablet by ity of tablet 00:00: mouth [place] 00 daily. Medical Branch pantoprazol 2022-02 Yes [id number] 40mg Take 1 Univers e 40 mg EC 0-20 tablet by ity of tablet 00:00: mouth [place] 00 daily. Medical Branch pantoprazol 2022-02 Yes [id number] 40mg Take 1 Univers e 40 mg EC 0-20 tablet by ity of tablet 00:00: mouth [place] 00 daily. Medical Branch pantoprazol 2022-02 Yes [id number] 40mg Take 1 Univers e 40 mg EC 0-20 tablet by ity of tablet 00:00: mouth [place] 00 daily. Medical Branch pantoprazol 2022-02 Yes [id number] 40mg Take 1 Univers e 40 mg EC 0-20 tablet by ity of tablet 00:00: mouth [place] 00 daily. Medical Branch pantoprazol 2022-02 Yes [id number] 40mg Take 1 Univers e 40 mg EC 0-20 tablet by ity of tablet 00:00: mouth [place] 00 daily. Medical Branch pantoprazol 2022-02 Yes [id number] 40mg Take 1 Univers e 40 mg EC 0-20 tablet by ity of tablet 00:00: mouth [place] 00 daily. Medical Branch pantoprazol 2022-02 Yes [id number] 40mg Take 1 Univers e 40 mg EC 0-20 tablet by ity of tablet 00:00: mouth [place] 00 daily. Medical Branch pantoprazol 2022-02 Yes [id number] 40mg Take 1 Univers e 40 mg EC 0-20 tablet by ity of tablet 00:00: mouth [place] 00 daily. Medical Branch pantoprazol 2022-02 Yes [id number] 40mg Take 1 Univers e 40 mg EC 0-20 tablet by ity of tablet 00:00: mouth [place] 00 daily. Medical Branch pantoprazol 2022-02 Yes [id number] 40mg Take 1 Univers e 40 mg EC 0-20 tablet by ity of tablet 00:00: mouth [place] 00 daily. Medical Branch pantoprazol 2022-02 Yes [id number] 40mg Take 1 Univers e 40 mg EC 0-20 tablet by ity of tablet 00:00: mouth [place] 00 daily. Medical Branch pantoprazol 2022-02 Yes [id number] 40mg Take 1 Univers e 40 mg EC 0-20 tablet by ity of tablet 00:00: mouth [place] 00 daily. Medical Branch pantoprazol 2022-02 Yes [id number] 40mg Take 1 Univers e 40 mg EC 0-20 tablet by ity of tablet 00:00: mouth [place] 00 daily. Medical Branch pantoprazol 2022-02 Yes [id number] 40mg Take 1 Univers e 40 mg EC 0-20 tablet by ity of tablet 00:00: mouth [place] 00 daily. Medical Branch carvediloL 2022-02- No 6.25mg Take 1 Un briana 6.25 mg 0-17 10-17 tablet by ity of tablet 22:07: 00:00 mouth [place] 07 :00 every Medical morning. Branch carvediloL 2022-02 Yes [id number] 3.125mg Take 1 Univers 3.125 mg 0-17 tablet by ity of tablet 00:00: mouth 2 [place] 00 (two) Medical times Branch daily. carvediloL 2022-02 Yes [id number] 3.125mg Take 1 Univers 3.125 mg 0-17 tablet by ity of tablet 00:00: mouth 2 [place] 00 (two) Medical times Branch daily. carvediloL 2022-02 Yes [id number] 3.125mg Take 1 Univers 3.125 mg 0-17 tablet by ity of tablet 00:00: mouth (two) Medical times Branch daily. carvediloL 2022-02 Yes [id number] 3.125mg Take 1 Univers 3.125 mg 0-17 tablet by ity of tablet 00:00: mouth 2 (two) Medical times Branch daily. carvediloL 2022-02 Yes [id number] 3.125mg Take 1 Univers 3.125 mg 0-17 tablet by ity of tablet 00:00: mouth (two) Medical times Branch daily. carvediloL 2022-02 Yes [id number] 3.125mg Take 1 Univers 3.125 mg 0-17 tablet by ity of tablet 00:00: mouth (two) Medical times Branch daily. carvediloL 2022-02 Yes [id number] 3.125mg Take 1 Univers 3.125 mg 0-17 tablet by ity of tablet 00:00: mouth (two) Medical times Branch daily. carvediloL 2022-02 Yes [id number] 3.125mg Take 1 Univers 3.125 mg 0-17 tablet by ity of tablet 00:00: mouth (two) Medical times Branch daily. carvediloL 2022-02 Yes [id number] 3.125mg Take 1 Univers 3.125 mg 0-17 tablet by ity of tablet 00:00: mouth (two) Medical times Branch daily. carvediloL 2022-02 Yes [id number] 3.125mg Take 1 Univers 3.125 mg 0-17 tablet by ity of tablet 00:00: mouth (two) Medical times Branch daily. carvediloL 2022-02 Yes [id number] 3.125mg Take 1 Univers 3.125 mg 0-17 tablet by ity of tablet 00:00: mouth (two) Medical times Branch daily. carvediloL 2022-02 Yes [id number] 3.125mg Take 1 Univers 3.125 mg 0-17 tablet by ity of tablet 00:00: mouth 2 (two) Medical times Branch daily. carvediloL 2022-02 Yes [id number] 3.125mg Take 1 Univers 3.125 mg 0-17 tablet by ity of tablet 00:00: mouth (two) Medical times Branch daily. carvediloL 2022-02 Yes [id number] 3.125mg Take 1 Univers 3.125 mg 0-17 tablet by ity of tablet 00:00: mouth 2 (two) Medical times Branch daily. carvediloL 2022-02 Yes [id number] 3.125mg Take 1 Univers 3.125 mg 0-17 tablet by ity of tablet 00:00: mouth 2 (two) Medical times Branch daily. carvediloL 2022-02 Yes [id number] 3.125mg Take 1 Univers 3.125 mg 0-17 tablet by ity of tablet 00:00: mouth 2 (two) Medical times Branch daily. carvediloL 2022-02 Yes [id number] 3.125mg Take 1 Univers 3.125 mg 0-17 tablet by ity of tablet 00:00: mouth 2 (two) Medical times Branch daily. carvediloL 2022-02 Yes [id number] 3.125mg Take 1 Univers 3.125 mg 0-17 tablet by ity of tablet 00:00: mouth (two) Medical times Branch daily. carvediloL 2022-02 Yes [id number] 3.125mg Take 1 Univers 3.125 mg 0-17 tablet by ity of tablet 00:00: mouth (two) Medical times Branch daily. carvediloL 2022-02 Yes [id number] 3.125mg Take 1 Univers 3.125 mg 0-17 tablet by ity of tablet 00:00: mouth 2 (two) Medical times Branch daily. carvediloL 2022-02 Yes [id number] 3.125mg Take 1 Univers 3.125 mg 0-17 tablet by ity of tablet 00:00: mouth (two) Medical times Branch daily. carvediloL 2022-02 Yes [id number] 3.125mg Take 1 Univers 3.125 mg 0-17 tablet by ity of tablet 00:00: mouth 2 (two) Medical times Branch daily. carvediloL 2022-02 Yes [id number] 3.125mg Take 1 Univers 3.125 mg 0-17 tablet by ity of tablet 00:00: mouth 2 (two) Medical times Branch daily. carvediloL 2022-02 Yes [id number] 3.125mg Take 1 Univers 3.125 mg 0-17 tablet by ity of tablet 00:00: mouth 2 (two) Medical times Branch daily. atorvastati 2022-0 Yes [id number] 10mg Take 0.5 Univers n 20 mg 9-29 tablets by ity of tablet 00:00: mouth at [place] [address] bedtime. Medical Branch atorvastati 2022-0 Yes [id number] 10mg Take 0.5 Univers n 20 mg 9-29 tablets by ity of tablet 00:00: mouth at [place] bedtime. Medical Branch atorvastati 2022-0 Yes [id number] 10mg Take 0.5 Univers n 20 mg 9-29 tablets by ity of tablet 00:00: mouth at [place] [address] bedtime. Medical Branch atorvastati 2022-0 Yes [id number] 10mg Take 0.5 Univers n 20 mg 9-29 tablets by ity of tablet 00:00: mouth at [place] [address] bedtime. Medical Branch atorvastati 2022-0 Yes [id number] 10mg Take 0.5 Univers n 20 mg 9-29 tablets by ity of tablet 00:00: mouth at [place] [address] bedtime. Medical Branch atorvastati 2022-0 Yes [id number] 10mg Take 0.5 Univers n 20 mg 9-29 tablets by ity of tablet 00:00: mouth at [place] [address] bedtime. Medical Branch atorvastati 2022-0 Yes [id number] 10mg Take 0.5 Univers n 20 mg 9-29 tablets by ity of tablet 00:00: mouth at [place] [address] bedtime. Medical Branch atorvastati 2022-0 Yes [id number] 10mg Take 0.5 Univers n 20 mg 9-29 tablets by ity of tablet 00:00: mouth at [place] [address] bedtime. [facility] atorvastati 2022-0 Yes [id number] 10mg Take 0.5 [facility] n 20 mg 9-29 tablets by [facility] of tablet 00:00: mouth at [place] [address] bedtime. [facility] atorvastati 2022-0 Yes [id number] 10mg Take 0.5 [facility] n 20 mg 9-29 tablets by ity of tablet 00:00: mouth at [place] [address] bedtime. [facility] atorvastati 2022-0 Yes [id number] 10mg Take 0.5 [facility] n 20 mg 9-29 tablets by ity of tablet 00:00: mouth at [place] [address] bedtime. [facility] atorvastati 2022-0 Yes [id number] 10mg Take 0.5 [facility] n 20 mg 9-29 tablets by ity of tablet 00:00: mouth at [place] [address] bedtime. [facility] atorvasta 0 Yes [id number] 10mg Take 0.5 [facility] n 20 mg 9-29 tablets by ity of tablet 00:00: mouth at [place] [address] bedtime. [facility] atorvastati 2022-0 Yes [id number] 10mg Take 0.5 [facility] n 20 mg 9-29 tablets by ity of tablet 00:00: mouth at [place] [address] bedtime. [facility] atorvasta 2022-0 Yes [id number] 10mg Take 0.5 [facility] n 20 mg 9-29 tablets by ity of tablet 00:00: mouth at [place] [address] bedtime. [facility] atorvasta 0 Yes [id number] 10mg Take 0.5 [facility] n 20 mg 9-29 tablets by ity of tablet 00:00: mouth at [place] [address] bedtime. [facility] atorvasta 2022-0 Yes [id number] 10mg Take 0.5 [facility] n 20 mg 9-29 tablets by ity of tablet 00:00: mouth at [place] [address] bedtime. [facility] atorvasta 0 Yes [id number] 10mg Take 0.5 [facility] n 20 mg 9-29 tablets by ity of tablet 00:00: mouth at [place] [address] bedtime. [facility] atorvasta 2022-0 Yes [id number] 10mg Take 0.5 [facility] n 20 mg 9-29 tablets by ity of tablet 00:00: mouth at [place] [address] bedtime. [facility] atorvastati 2022-0 Yes [id number] 10mg Take 0.5 [facility] n 20 mg 9-29 tablets by ity of tablet 00:00: mouth at [place] [address] bedtime. [facility] atorvasta 2022-0 Yes [id number] 10mg Take 0.5 [facility] n 20 mg 9-29 tablets by ity of tablet 00:00: mouth at [place] [address] bedtime. [facility] atorvastati 2022-0 Yes [id number] 10mg Take 0.5 [facility] n 20 mg 9-29 tablets by ity of tablet 00:00: mouth at [place] [address] bedtime. [facility] atorvastati 2022-0 Yes [id number] 10mg Take 0.5 [facility] n 20 mg 9-29 tablets by ity of tablet 00:00: mouth at [place] [address] bedtime. [facility] atorvastati 2022-0 Yes [id number] 10mg Take 0.5 [facility] n 20 mg 9-29 tablets by ity of tablet 00:00: mouth at [place] [address] bedtime. [facility] atorvastati 2022-0 Yes [id number] 10mg Take 0.5 [facility] n 20 mg 9-29 tablets by ity of tablet 00:00: mouth at [place] [address] bedtime. [facility] atorvastati 2022-0 Yes [id number] 10mg Take 0.5 [facility] n 20 mg 9-29 tablets by ity of tablet 00:00: mouth at [place] [address] bedtime. [facility] atorvastati 2022-0 Yes [id number] 10mg Take 0.5 [facility] n 20 mg 9-29 tablets by ity of tablet 00:00: mouth at [place] [address] bedtime. [facility] atorvastati 2022-0 Yes [id number] 10mg Take 0.5 [facility] n 20 mg 9-29 tablets by ity of tablet 00:00: mouth at [place] [address] bedtime. [facility] atorvastati 2022-0 Yes [id number] 10mg Take 0.5 [facility] n 20 mg 9-29 tablets by ity of tablet 00:00: mouth at [place] [address] bedtime. [facility] Branch atorvastati 0 Yes [id number] 10mg Take 0.5 [facility] n 20 mg 9-29 tablets by ity of tablet 00:00: mouth at [place] [address] bedtime. Medical Branch ipratropium 3-0 Yes [id number] .5mg Inhale 2.5 [facility] 0.02 % 8-17 mL every 6 ity of nebulizer 00:00: (six) [place] solution 00 hours as Medical needed for Branch Wheezing or Shortness of Breath. ipratropium 2023-0 Yes [id number] .5mg Inhale 2.5 [facility] 0.02 % 8-17 mL every 6 ity of nebulizer 00:00: (six) [place] solution 00 hours as Medical needed for Branch Wheezing or Shortness of Breath. ipratropium 2023-0 Yes [id number] .5mg Inhale 2.5 [facility] 0.02 % 8-17 mL every 6 ity of nebulizer 00:00: (six) [place] solution 00 hours as Medical needed for Branch Wheezing or Shortness of Breath. ipratropium 2023-0 Yes [id number] .5mg Inhale 2.5 [facility] 0.02 % 8-17 mL every 6 ity of nebulizer 00:00: (six) [place] solution 00 hours as Medical needed for Branch Wheezing or Shortness of Breath. ipratropium 2023-0 Yes [id number] .5mg Inhale 2.5 [facility] 0.02 % 8-17 mL every 6 ity of nebulizer 00:00: (six) [place] solution 00 hours as Medical needed for Branch Wheezing or Shortness of Breath. ipratropium 2023-0 Yes [id number] .5mg Inhale 2.5 [facility] 0.02 % 8-17 mL every 6 ity of nebulizer 00:00: (six) [place] solution 00 hours as Medical needed for Branch Wheezing or Shortness of Breath. ipratropium 2023-0 Yes [id number] .5mg Inhale 2.5 [facility] 0.02 % 8-17 mL every 6 ity of nebulizer 00:00: (six) [place] solution 00 hours as Medical needed for Branch Wheezing or Shortness of Breath. ipratropium 2023-0 Yes [id number] .5mg Inhale 2.5 [facility] 0.02 % 8-17 mL every 6 ity of nebulizer 00:00: (six) [place] solution 00 hours as Medical needed for Branch Wheezing or Shortness of Breath. ipratropium 2023-0 Yes [id number] .5mg Inhale 2.5 [facility] 0.02 % 8-17 mL every 6 ity of nebulizer 00:00: (six) [place] solution 00 hours as Medical needed for Branch Wheezing or Shortness of Breath. ipratropium 2023-0 Yes [id number] .5mg Inhale 2.5 [facility] 0.02 % 8-17 mL every 6 ity of nebulizer 00:00: (six) [place] solution 00 hours as Medical needed for Branch Wheezing or Shortness of Breath. ipratropium 2023-0 Yes [id number] .5mg Inhale 2.5 [facility] 0.02 % 8-17 mL every 6 ity of nebulizer 00:00: (six) [place] solution 00 hours as Medical needed for Branch Wheezing or Shortness of Breath. ipratropium 2023-0 Yes [id number] .5mg Inhale 2.5 [facility] 0.02 % 8-17 mL every 6 ity of nebulizer 00:00: (six) [place] solution 00 hours as Medical needed for Branch Wheezing or Shortness of Breath. ipratropium 2023-0 Yes [id number] .5mg Inhale 2.5 [facility] 0.02 % 8-17 mL every 6 ity of nebulizer 00:00: (six) [place] solution 00 hours as Medical needed for Branch Wheezing or Shortness of Breath. ipratropium 2023-0 Yes [id number] .5mg Inhale 2.5 [facility] 0.02 % 8-17 mL every 6 ity of nebulizer 00:00: (six) [place] solution 00 hours as Medical needed for Branch Wheezing or Shortness of Breath. ipratropium 2023-0 Yes [id number] .5mg Inhale 2.5 [facility] 0.02 % 8-17 mL every 6 ity of nebulizer 00:00: (six) [place] solution 00 hours as Medical needed for Branch Wheezing or Shortness of Breath. ipratropium 2023-0 Yes [id number] .5mg Inhale 2.5 [facility] 0.02 % 8-17 mL every 6 ity of nebulizer 00:00: (six) [place] solution 00 hours as Medical needed for Branch Wheezing or Shortness of Breath. ipratropium 2023-0 Yes [id number] .5mg Inhale 2.5 [facility] 0.02 % 8-17 mL every 6 ity of nebulizer 00:00: (six) [place] solution 00 hours as Medical needed for Branch Wheezing or Shortness of Breath. ipratropium 2023-0 Yes [id number] .5mg Inhale 2.5 [facility] 0.02 % 8-17 mL every 6 ity of nebulizer 00:00: (six) [place] solution 00 hours as Medical needed for Branch Wheezing or Shortness of Breath. ipratropium 2023-0 Yes [id number] .5mg Inhale 2.5 [facility] 0.02 % 8-17 mL every 6 ity of nebulizer 00:00: (six) [place] solution 00 hours as Medical needed for Branch Wheezing or Shortness of Breath. ipratropium 2023-0 Yes [id number] .5mg Inhale 2.5 [facility] 0.02 % 8-17 mL every 6 ity of nebulizer 00:00: (six) [place] solution 00 hours as Medical needed for Branch Wheezing or Shortness of Breath. ipratropium 2023-0 Yes [id number] .5mg Inhale 2.5 [facility] 0.02 % 8-17 mL every 6 ity of nebulizer 00:00: (six) [place] solution 00 hours as Medical needed for Branch Wheezing or Shortness of Breath. ipratropium 2023-0 Yes [id number] .5mg Inhale 2.5 [facility] 0.02 % 8-17 mL every 6 ity of nebulizer 00:00: (six) [place] solution 00 hours as Medical needed for Branch Wheezing or Shortness of Breath. ipratropium 2023-0 Yes [id number] .5mg Inhale 2.5 [facility] 0.02 % 8-17 mL every 6 ity of nebulizer 00:00: (six) [place] solution 00 hours as Medical needed for Branch Wheezing or Shortness of Breath. ipratropium 2023-0 Yes [id number] .5mg Inhale 2.5 [facility] 0.02 % 8-17 mL every 6 ity of nebulizer 00:00: (six) [place] solution 00 hours as Medical needed for Branch Wheezing or Shortness of Breath. ipratropium 2023-0 Yes [id number] .5mg Inhale 2.5 [facility] 0.02 % 8-17 mL every 6 ity of nebulizer 00:00: (six) [place] solution 00 hours as Medical needed for Branch Wheezing or Shortness of Breath. ipratropium 2023-0 Yes [id number] .5mg Inhale 2.5 [facility] 0.02 % 8-17 mL every 6 ity of nebulizer 00:00: (six) [place] solution 00 hours as Medical needed for Branch Wheezing or Shortness of Breath. ipratropium 2023-0 Yes [id number] .5mg Inhale 2.5 [facility] 0.02 % 8-17 mL every 6 ity of nebulizer 00:00: (six) [place] solution 00 hours as Medical needed for Branch Wheezing or Shortness of Breath. ipratropium 2023-0 Yes [id number] .5mg Inhale 2.5 [facility] 0.02 % 8-17 mL every 6 ity of nebulizer 00:00: (six) [place] solution 00 hours as Medical needed for Branch Wheezing or Shortness of Breath. ipratropium 2023-0 Yes [id number] .5mg Inhale 2.5 [facility] 0.02 % 8-17 mL every 6 ity of nebulizer 00:00: (six) [place] solution 00 hours as Medical needed for Branch Wheezing or Shortness of Breath. ipratropium 2023-0 Yes [id number] .5mg Inhale 2.5 [facility] 0.02 % 8-17 mL every 6 ity of nebulizer 00:00: (six) [place] solution 00 hours as Medical needed for Branch Wheezing or Shortness of Breath. ipratropium 2023-0 Yes [id number] .5mg Inhale 2.5 [facility] 0.02 % 8-17 mL every 6 ity of nebulizer 00:00: (six) [place] solution 00 hours as Medical needed for Branch Wheezing or Shortness of Breath. ipratropium 2023-0 Yes [id number] .5mg Inhale 2.5 [facility] 0.02 % 8-17 mL every 6 ity of nebulizer 00:00: (six) [place] solution 00 hours as Medical needed for Branch Wheezing or Shortness of Breath. ipratropium 2023-0 Yes [id number] .5mg Inhale 2.5 [facility] 0.02 % 8-17 mL every 6 ity of nebulizer 00:00: (six) [place] solution 00 hours as Medical needed for Branch Wheezing or Shortness of Breath. ipratropium 2023-0 Yes [id number] .5mg Inhale 2.5 [facility] 0.02 % 8-17 mL every 6 ity of nebulizer 00:00: (six) [place] solution 00 hours as Medical needed for Branch Wheezing or Shortness of Breath. ipratropium 2023-0 Yes [id number] .5mg Inhale 2.5 [facility] 0.02 % 8-17 mL every 6 ity of nebulizer 00:00: (six) [place] solution 00 hours as Medical needed for Branch Wheezing or Shortness of Breath. ipratropium 2023-0 Yes [id number] .5mg Inhale 2.5 [facility] 0.02 % 8-17 mL every 6 ity of nebulizer 00:00: (six) [place] solution 00 hours as Medical needed for Branch Wheezing or Shortness of Breath. Nut.[place].Gluc 2022-0 Yes [id number] 1{box} Take 1 Box [facility] .Intol,Lac- 7-27 by mouth 2 it y of Free,Soy 00:00: (two) [place] (GLUCERNA 00 times Medical THERAPEUTIC daily. Branch NUTRITION) liquid Nut.[place].Gluc 2022-0 Yes [id number] 1{box} Take 1 Box [facility] .Intol,Lac- 7-27 by mouth 2 it y of Free,Soy 00:00: (two) [place] (GLUCERNA 00 times Medical THERAPEUTIC daily. Branch NUTRITION) liquid Nut.[place].Gluc 2022-0 Yes [id number] 1{box} Take 1 Box [facility] .Intol,Lac- 7-27 by mouth 2 it y of Free,Soy 00:00: (two) [place] (GLUCERNA 00 times Medical THERAPEUTIC daily. Branch NUTRITION) liquid Nut.[place].Gluc 2022-0 Yes [id number] 1{box} Take 1 Box [facility] .Intol,Lac- 7-27 by mouth 2 it y of Free,Soy 00:00: (two) [place] (GLUCERNA 00 times Medical THERAPEUTIC daily. Branch NUTRITION) liquid Nut.[place].Gluc 2022-0 Yes [id number] 1{box} Take 1 Box [facility] .Intol,Lac- 7-27 by mouth 2 it y of Free,Soy 00:00: (two) [place] (GLUCERNA 00 times Medical THERAPEUTIC daily. Branch NUTRITION) liquid Nut.[place].Gluc 2022-0 Yes [id number] 1{box} Take 1 Box [facility] .Intol,Lac- 7-27 by mouth 2 it y of Free,Soy 00:00: (two) [place] (GLUCERNA 00 times Medical THERAPEUTIC daily. Branch NUTRITION) liquid Nut.[place].Gluc 2022-0 Yes [id number] 1{box} Take 1 Box [facility] .Intol,Lac- 7-27 by mouth 2 it y of Free,Soy 00:00: (two) [place] (GLUCERNA 00 times Medical THERAPEUTIC daily. Branch NUTRITION) liquid Nut.[place].Gluc 2022-0 Yes [id number] 1{box} Take 1 Box [facility] .Intol,Lac- 7-27 by mouth 2 it y of Free,Soy 00:00: (two) [place] (GLUCERNA 00 times Medical THERAPEUTIC daily. Branch NUTRITION) liquid Nut.[place].Gluc 2022-0 Yes [id number] 1{box} Take 1 Box [facility] .Intol,Lac- 7-27 by mouth 2 it y of Free,Soy 00:00: (two) [place] (GLUCERNA 00 times Medical THERAPEUTIC daily. Branch NUTRITION) liquid Nut.[place].Gluc 2022-0 Yes [id number] 1{box} Take 1 Box [facility] .Intol,Lac- 7-27 by mouth 2 it y of Free,Soy 00:00: (two) [place] (GLUCERNA 00 times Medical THERAPEUTIC daily. Branch NUTRITION) liquid Nut.[place].Gluc 2022-0 Yes [id number] 1{box} Take 1 Box [facility] .Intol,Lac- 7-27 by mouth 2 it y of Free,Soy 00:00: (two) [place] (GLUCERNA 00 times Medical THERAPEUTIC daily. Branch NUTRITION) liquid Nut.[place].Gluc 2022-0 Yes [id number] 1{box} Take 1 Box [facility] .Intol,Lac- 7-27 by mouth 2 it y of Free,Soy 00:00: (two) [place] (GLUCERNA 00 times Medical THERAPEUTIC daily. Branch NUTRITION) liquid Nut.[place].Gluc 2022-0 Yes [id number] 1{box} Take 1 Box [facility] .Intol,Lac- 7-27 by mouth 2 it y of Free,Soy 00:00: (two) [place] (GLUCERNA 00 times Medical THERAPEUTIC daily. Branch NUTRITION) liquid Nut.[place].Gluc 2022-0 Yes [id number] 1{box} Take 1 Box [facility] .Intol,Lac- 7-27 by mouth 2 it y of Free,Soy 00:00: (two) [place] (GLUCERNA 00 times Medical THERAPEUTIC daily. Branch NUTRITION) liquid Nut.[place].Gluc 3-0 Yes [id number] 1{box} Take 1 Box [facility] .Intol,Lac- 7-27 by mouth 2 it y of Free,Soy 00:00: (two) [place] (GLUCERNA 00 times Medical THERAPEUTIC daily. Branch NUTRITION) liquid Nut.[place].Gluc 2022-0 Yes [id number] 1{box} Take 1 Box [facility] .Intol,Lac- 7-27 by mouth 2 it y of Free,Soy 00:00: (two) [place] (GLUCERNA 00 times Medical THERAPEUTIC daily. Branch NUTRITION) liquid Nut.[place].Gluc 2022-0 Yes [id number] 1{box} Take 1 Box [facility] .Intol,Lac- 7-27 by mouth 2 it y of Free,Soy 00:00: (two) [place] (GLUCERNA 00 times Medical THERAPEUTIC daily. Branch NUTRITION) liquid Nut.[place].Gluc 2022-0 Yes [id number] 1{box} Take 1 Box [facility] .Intol,Lac- 7-27 by mouth 2 it y of Free,Soy 00:00: (two) [place] (GLUCERNA 00 times Medical THERAPEUTIC daily. Branch NUTRITION) liquid Nut.[place].Gluc 2022-0 Yes [id number] 1{box} Take 1 Box [facility] .Intol,Lac- 7-27 by mouth 2 it y of Free,Soy 00:00: (two) [place] (GLUCERNA 00 times Medical THERAPEUTIC daily. Branch NUTRITION) liquid Nut.[place].Gluc 2022-0 Yes [id number] 1{box} Take 1 Box [facility] .Intol,Lac- 7-27 by mouth 2 it y of Free,Soy 00:00: (two) [place] (GLUCERNA 00 times Medical THERAPEUTIC daily. Branch NUTRITION) liquid Nut.[place].Gluc 2022-0 Yes [id number] 1{box} Take 1 Box [facility] .Intol,Lac- 7-27 by mouth 2 it y of Free,Soy 00:00: (two) [place] (GLUCERNA 00 times Medical THERAPEUTIC daily. Branch NUTRITION) liquid Nut.[place].Gluc 2022-0 Yes [id number] 1{box} Take 1 Box [facility] .Intol,Lac- 7-27 by mouth 2 it y of Free,Soy 00:00: (two) [place] (GLUCERNA 00 times Medical THERAPEUTIC daily. Branch NUTRITION) liquid Nut.[place].Gluc 2022-0 Yes [id number] 1{box} Take 1 Box [facility] .Intol,Lac- 7-27 by mouth 2 it y of Free,Soy 00:00: (two) [place] (GLUCERNA 00 times Medical THERAPEUTIC daily. Branch NUTRITION) liquid Nut.[place].Gluc 2022-0 Yes [id number] 1{box} Take 1 Box [facility] .Intol,Lac- 7-27 by mouth 2 it y of Free,Soy 00:00: (two) [place] (GLUCERNA 00 times Medical THERAPEUTIC daily. Branch NUTRITION) liquid [facility].[place].Gluc 0 Yes [id number] 1{box} Take 1 Box [facility] .Intol,Lac- 7-27 by mouth 2 it y of Free,Soy 00:00: (two) [place] (GLUCERNA 00 times Medical THERAPEUTIC daily. Branch NUTRITION) liquid Nut.[place].Gluc 2022-0 Yes [id number] 1{box} Take 1 Box [facility] .Intol,Lac- 7-27 by mouth 2 it y of Free,Soy 00:00: (two) [place] (GLUCERNA 00 times Medical THERAPEUTIC daily. Branch NUTRITION) liquid Nut.[place].Gluc 0 Yes [id number] 1{box} Take 1 Box [facility] .Intol,Lac- 7-27 by mouth 2 it y of Free,Soy 00:00: (two) [place] (GLUCERNA 00 times Medical THERAPEUTIC daily. Branch NUTRITION) liquid Nut.[place].Gluc 0 Yes [id number] 1{box} Take 1 Box [facility] .Intol,Lac- 7-27 by mouth 2 it y of Free,Soy 00:00: (two) [place] (GLUCERNA 00 times Medical THERAPEUTIC daily. Branch NUTRITION) liquid Nut.[place].Gluc 0 Yes [id number] 1{box} Take 1 Box [facility] .Intol,Lac- 7-27 by mouth 2 it y of Free,Soy 00:00: (two) [place] (GLUCERNA 00 times Medical THERAPEUTIC daily. Branch NUTRITION) liquid Nut.[place].Gluc 0 Yes [id number] 1{box} Take 1 Box [facility] .Intol,Lac- 7-27 by mouth 2 it y of Free,Soy 00:00: (two) [place] (GLUCERNA 00 times Medical THERAPEUTIC daily. Branch NUTRITION) liquid Nut.[place].Gluc 0 Yes [id number] 1{box} Take 1 Box [facility] .Intol,Lac- 7-27 by mouth 2 it y of Free,Soy 00:00: (two) [place] (GLUCERNA 00 times Medical THERAPEUTIC daily. Branch NUTRITION) liquid Nut.[place].Gluc 2022-0 Yes [id number] 1{box} Take 1 Box [facility] .Intol,Lac- 7-27 by mouth 2 it y of Free,Soy 00:00: (two) [place] (GLUCERNA 00 times Medical THERAPEUTIC daily. Branch NUTRITION) liquid Nut.[place].Gluc 2022-0 Yes [id number] 1{box} Take 1 Box [facility] .Intol,Lac- 7-27 by mouth 2 it y of Free,Soy 00:00: (two) [place] (GLUCERNA 00 times Medical THERAPEUTIC daily. Branch NUTRITION) liquid Nut.[place].Gluc 2022-0 Yes [id number] 1{box} Take 1 Box [facility] .Intol,Lac- 7-27 by mouth 2 it y of Free,Soy 00:00: (two) [place] (GLUCERNA 00 times Medical THERAPEUTIC daily. Branch NUTRITION) liquid Nut.[place].Gluc 2022-0 Yes [id number] 1{box} Take 1 Box [facility] .Intol,Lac- 7-27 by mouth 2 it y of Free,Soy 00:00: (two) [place] (GLUCERNA 00 times Medical THERAPEUTIC daily. Branch NUTRITION) liquid Nut.[place].Gluc 2022-0 Yes [id number] 1{box} Take 1 Box [facility] .Intol,Lac- 7-27 by mouth 2 it y of Free,Soy 00:00: (two) [place] (GLUCERNA 00 times Medical THERAPEUTIC daily. Branch NUTRITION) liquid Nut.[place].Gluc 2022-0 Yes [id number] 1{box} Take 1 Box [facility] .Intol,Lac- 7-27 by mouth 2 it y of Free,Soy 00:00: (two) [place] (GLUCERNA 00 times Medical THERAPEUTIC daily. Branch NUTRITION) liquid Nut.[place].Gluc 2022-0 Yes [id number] 1{box} Take 1 Box [facility] .Intol,Lac- 7-27 by mouth 2 it y of Free,Soy 00:00: (two) [place] (GLUCERNA 00 times Medical THERAPEUTIC daily. Branch NUTRITION) liquid Nut.[place].Gluc 2022-0 Yes [id number] 1{box} Take 1 Box [facility] .Intol,Lac- 7-27 by mouth 2 it y of Free,Soy 00:00: (two) [place] (GLUCERNA 00 times Medical THERAPEUTIC daily. Branch NUTRITION) liquid Nut.[place].Gluc 2022-0 Yes [id number] 1{box} Take 1 Box [facility] .Intol,Lac- 7-27 by mouth 2 it y of Free,Soy 00:00: (two) [place] (GLUCERNA 00 times Medical THERAPEUTIC daily. Branch NUTRITION) liquid Nut.[facility].Gluc 2022-0 Yes [id number] 1{box} Take 1 Box [facility] .Intol,Lac- 7-27 by mouth 2 it y of Free,Soy 00:00: (two) [place] (GLUCERNA 00 times Medical THERAPEUTIC daily. [place] NUTRITION) liquid Nut.Tx.Gluc 2023-0 Yes [id number] 1{box} Take 1 Box [facility] .Intol,Lac- 7-27 by mouth 2 it y of Free,Soy 00:00: (two) [place] (GLUCERNA 00 times Medical THERAPEUTIC daily. [place] NUTRITION) liquid Nut.[place].Gluc 2023-0 Yes [id number] 1{box} Take 1 Box [facility] .Intol,Lac- 7-27 by mouth 2 it y of Free,Soy 00:00: (two) [place] (GLUCERNA 00 times Medical THERAPEUTIC daily. [place] NUTRITION) liquid Nut.Tx.Gluc 2023-0 Yes [id number] 1{box} Take 1 Box [facility] .Intol,Lac- 7-27 by mouth 2 it y of Free,Soy 00:00: (two) [place] (GLUCERNA 00 times Medical THERAPEUTIC daily. [place] NUTRITION) liquid spironolact 2023-0 Yes 12.5mg Take 0.5 [facility] one 25 mg 7-18 tablets by ity of tablet 00:00: mouth 2 [place] (two) Medical times [place] daily. spironolact 2023-0 Yes 12.5mg Take 0.5 [facility] one 25 mg 7-18 tablets by ity of tablet 00:00: mouth 2 [place] (two) Medical times [place] daily. spironolact 2023-0 Yes 12.5mg Take 0.5 [facility] one 25 mg 7-18 tablets by ity of tablet 00:00: mouth 2 [place] (two) Medical times [place] daily. spironolact 2023-0 Yes 12.5mg Take 0.5 [facility] one 25 mg 7-18 tablets by ity of tablet 00:00: mouth 2 [place] (two) Medical times [place] daily. spironolact 2023-0 Yes 12.5mg Take 0.5 [facility] one 25 mg 7-18 tablets by ity of tablet 00:00: mouth 2 [place] (two) Medical times [place] daily. spironolact 2023-0 Yes 12.5mg Take 0.5 [facility] one 25 mg 7-18 tablets by ity of tablet 00:00: mouth 2 [place] (two) Medical times Branch daily. spironolact 2023-0 Yes 12.5mg Take 0.5 [facility] one 25 mg 7-18 tablets by ity of tablet 00:00: [address] (two) Medical times Branch daily. spironolact 2023-0 Yes 12.5mg Take 0.5 [facility] one 25 mg 7-18 tablets by ity of tablet 00:00: [address] (two) Medical times Branch daily. spironolact 2023-0 Yes 12.5mg Take 0.5 [facility] one 25 mg 7-18 tablets by ity of tablet 00:00: mouth [address] [place] [address] (two) Medical times Branch daily. spironolact 2023-0 Yes 12.5mg Take 0.5 [facility] one 25 mg 7-18 tablets by ity of tablet 00:00: [address] (two) Medical times Branch daily. spironolact 2023-0 Yes 12.5mg Take 0.5 [facility] one 25 mg 7-18 tablets by ity of tablet 00:00: [address] (two) Medical times Branch daily. spironolact 2023-0 Yes 12.5mg Take 0.5 [facility] one 25 mg 7-18 tablets by ity of tablet 00:00: [address] (two) Medical times Branch daily. spironolact 2023-0 Yes 12.5mg Take 0.5 [facility] one 25 mg 7-18 tablets by ity of tablet 00:00: [address] (two) Medical times Branch daily. spironolact 2023-0 Yes 12.5mg Take 0.5 [facility] one 25 mg 7-18 tablets by ity of tablet 00:00: [address] (two) Medical times Branch daily. spironolact 2023-0 Yes 12.5mg Take 0.5 [facility] one 25 mg 7-18 tablets by ity of tablet 00:00: [address] (two) Medical times Branch daily. spironolact 2023-0 2023- No 12.5mg Take 0.5 [facility] one 25 mg 7-18 10-23 tablets by ity of tablet 00:00: 00:[address] 00 :00 (two) Medical times Branch daily. spironolact 2023-0 2023- No 12.5mg Take 0.5 [facility] one 25 mg 7-18 10-23 tablets by ity of tablet 00:00: 00:00 mouth 2 [place] 00 :00 (two) Medical times Branch daily. albuterol 2022-0 Yes [id number] 2.5mg Inhale 3 [facility] 2.5 mg /3 6-27 mL every 8 ity of mL (0.083 00:00: (eight) [place] %) 00 hours as Medical nebulizer needed for Bran ch solution Wheezing or Shortness of Breath. ipratropium 2022-0 Yes [id number] .5mg Inhale 2.5 [facility] 0.02 % 6-27 mL every 6 ity of nebulizer 00:00: (six) [place] solution 00 hours as Medical needed for Branch Wheezing or Shortness of Breath. furosemide 2022-0 Yes [id number] 80mg Take 2 [facility] 40 mg 6-27 tablets by ity of tablet 00:00: mouth [place] 00 every Medical morning Branch and evening. benzonatate 2022-0 Yes [id number] 200mg Take 1 [facility] 200 mg 6-27 capsule by ity of capsule 00:00: mouth 3 [place] 00 (three) Medical times Branch daily as needed for Cough. ferrous 2022-0 Yes [id number] 324mg Take 1 Un briana sulfate 324 6-27 tablet by ity of mg (65 mg 00:00: mouth [place] iron) EC 00 daily with Medic al tablet breakfast. Branch albuterol 2022-0 Yes [id number] 2.5mg Inhale 3 [facility] 2.5 mg /3 6-27 mL every 8 ity of mL (0.083 00:00: (eight) [place] %) 00 hours as Medical nebulizer needed for Bran ch solution Wheezing or Shortness of Breath. ipratropium 2022-0 Yes [id number] .5mg Inhale 2.5 [facility] 0.02 % 6-27 mL every 6 ity of nebulizer 00:00: (six) [place] solution 00 hours as Medical needed for Branch Wheezing or Shortness of Breath. furosemide 2022-0 Yes [id number] 80mg Take 2 [facility] 40 mg 6-27 tablets by ity of tablet 00:00: mouth [place] 00 every Medical morning Branch and evening. benzonatate 2022-0 Yes [id number] 200mg Take 1 [facility] 200 mg 6-27 capsule by ity of capsule 00:00: mouth 3 [place] 00 (three) Medical times Branch daily as needed for Cough. ferrous 3-0 Yes [id number] 324mg Take 1 Un briana sulfate 324 6-27 tablet by ity of mg (65 mg 00:00: mouth [place] iron) EC 00 daily with Medic al tablet breakfast. Branch albuterol 2022-0 Yes [id number] 2.5mg Inhale 3 [facility] 2.5 mg /3 6-27 mL every 8 ity of mL (0.083 00:00: (eight) [place] %) 00 hours as Medical nebulizer needed for Bran ch solution Wheezing or Shortness of Breath. ipratropium 2022-0 Yes [id number] .5mg Inhale 2.5 [facility] 0.02 % 6-27 mL every 6 ity of nebulizer 00:00: (six) [place] solution 00 hours as Medical needed for Branch Wheezing or Shortness of Breath. furosemide 2022-0 Yes [id number] 80mg Take 2 [facility] 40 mg 6-27 tablets by ity of tablet 00:00: mouth [place] 00 every Medical morning Branch and evening. benzonatate 2022-0 Yes [id number] 200mg Take 1 [facility] 200 mg 6-27 capsule by ity of capsule 00:00: mouth 3 [place] 00 (three) Medical times Branch daily as needed for Cough. ferrous 2022-0 Yes [id number] 324mg Take 1 Un briana sulfate 324 6-27 tablet by ity of mg (65 mg 00:00: mouth [place] iron) EC 00 daily with Medic al tablet breakfast. Branch albuterol 2022-0 Yes [id number] 2.5mg Inhale 3 [facility] 2.5 mg /3 6-27 mL every 8 [facility] of mL (0.083 00:00: (eight) [place] %) 00 hours as Medical nebulizer needed for Bran ch solution Wheezing or Shortness of Breath. ipratropium 3-0 Yes [id number] .5mg Inhale 2.5 [facility] 0.02 % 6-27 mL every 6 [facility] of nebulizer 00:00: (six) [place] solution 00 hours as Medical needed for Branch Wheezing or Shortness of Breath. furosemide 2022-0 Yes [id number] 80mg Take 2 [facility] 40 mg 6-27 tablets by ity of tablet 00:00: mouth [place] 00 every Medical morning Branch and evening. benzonatate 2023-0 Yes [id number] 200mg Take 1 [facility] 200 mg 6-27 capsule by [facility] of capsule 00:00: mouth 3 [place] 00 (three) Medical times Branch daily as needed for Cough. ferrous 2022-0 Yes [id number] 324mg Take 1 Un briana sulfate 324 6-27 tablet by ity of mg (65 mg 00:00: mouth [place] iron) EC 00 daily with Medic al tablet breakfast. Branch albuterol 2022-0 Yes [id number] 2.5mg Inhale 3 [facility] 2.5 mg /3 6-27 mL every 8 [facility] of mL (0.083 00:00: (eight) [place] %) 00 hours as Medical nebulizer needed for Bran ch solution Wheezing or Shortness of Breath. ipratropium 2022-0 Yes [id number] .5mg Inhale 2.5 [facility] 0.02 % 6-27 mL every 6 [facility] of nebulizer 00:00: (six) [place] solution 00 hours as Medical needed for Branch Wheezing or Shortness of Breath. furosemide 2022-0 Yes [id number] 80mg Take 2 [facility] 40 mg 6-27 tablets by [facility]y of tablet 00:00: mouth [place] 00 every Medical morning Branch and evening. benzonatate 2022-0 Yes [id number] 200mg Take 1 [facility] 200 mg 6-27 capsule by [facility] of capsule 00:00: mouth 3 [place] 00 (three) Medical times Branch daily as needed for Cough. ferrous 2022-0 Yes [id number] 324mg Take 1 Un briana sulfate 324 6-27 tablet by ity of mg (65 mg 00:00: mouth [place] iron) EC 00 daily with Medic al tablet breakfast. Branch albuterol 2022-0 Yes [id number] 2.5mg Inhale 3 [facility] 2.5 mg /3 6-27 mL every 8 [facility] of mL (0.083 00:00: (eight) [place] %) 00 hours as Medical nebulizer needed for Bran ch solution Wheezing or Shortness of Breath. ipratropium 3-0 Yes [id number] .5mg Inhale 2.5 [facility] 0.02 % 6-27 mL every 6 [facility] of nebulizer 00:00: (six) [place] solution 00 hours as Medical needed for Branch Wheezing or Shortness of Breath. furosemide 2022-0 Yes [id number] 80mg Take 2 [facility] 40 mg 6-27 tablets by [facility]y of tablet 00:00: mouth [place] 00 every Medical morning Branch and evening. benzonatate 2023-0 Yes [id number] 200mg Take 1 [facility] 200 mg 6-27 capsule by [facility] of capsule 00:00: mouth 3 [place] 00 (three) Medical times Branch daily as needed for Cough. ferrous 2023-0 Yes [id number] 324mg Take 1 Un briana sulfate 324 6-27 tablet by ity of mg (65 mg 00:00: mouth [place] iron) EC 00 daily with Medic al tablet breakfast. Branch albuterol 3-0 Yes [id number] 2.5mg Inhale 3 [facility] 2.5 mg /3 6-27 mL every 8 [facility] of mL (0.083 00:00: (eight) [place] %) 00 hours as Medical nebulizer needed for Bran ch solution Wheezing or Shortness of Breath. ipratropium 3-0 Yes [id number] .5mg Inhale 2.5 [facility] 0.02 % 6-27 mL every 6 ity of nebulizer 00:00: (six) [place] solution 00 hours as Medical needed for Branch Wheezing or Shortness of Breath. furosemide 3-0 Yes [id number] 80mg Take 2 [facility] 40 mg 6-27 tablets by ity of tablet 00:00: mouth [place] 00 every Medical morning Branch and evening. benzonatate 3-0 Yes [id number] 200mg Take 1 [facility] 200 mg 6-27 capsule by [facility] of capsule 00:00: mouth 3 [place] 00 (three) Medical times Branch daily as needed for Cough. ferrous 3-0 Yes [id number] 324mg Take 1 Un briana sulfate 324 6-27 tablet by ity of mg (65 mg 00:00: mouth [place] iron) EC 00 daily with Medic al tablet breakfast. Branch albuterol 3-0 Yes [id number] 2.5mg Inhale 3 [facility] 2.5 mg /3 6-27 mL every 8 [facility] of mL (0.083 00:00: (eight) [place] %) 00 hours as Medical nebulizer needed for Bran ch solution Wheezing or Shortness of Breath. ipratropium 2023-0 Yes [id number] .5mg Inhale 2.5 [facility] 0.02 % 6-27 mL every 6 [facility]y of nebulizer 00:00: (six) [place] solution 00 hours as Medical needed for Branch Wheezing or Shortness of Breath. furosemide 2022-0 Yes [id number] 80mg Take 2 [facility] 40 mg 6-27 tablets by [facility]y of tablet 00:00: mouth [place] 00 every Medical morning Branch and evening. benzonatate 3-0 Yes [id number] 200mg Take 1 [facility] 200 mg 6-27 capsule by [facility] of capsule 00:00: mouth 3 [place] 00 (three) Medical times Branch daily as needed for Cough. ferrous 2022-0 Yes [id number] 324mg Take 1 Un briana sulfate 324 6-27 tablet by ity of mg (65 mg 00:00: mouth [place] iron) EC 00 daily with Medic al tablet breakfast. Branch albuterol 2022-0 Yes [id number] 2.5mg Inhale 3 [facility] 2.5 mg /3 6-27 mL every 8 [facility] of mL (0.083 00:00: (eight) [place] %) 00 hours as Medical nebulizer needed for Bran ch solution Wheezing or Shortness of Breath. ipratropium 2022-0 Yes [id number] .5mg Inhale 2.5 [facility] 0.02 % 6-27 mL every 6 [facility]y of nebulizer 00:00: (six) [place] solution 00 hours as Medical needed for Branch Wheezing or Shortness of Breath. furosemide 2022-0 Yes [id number] 80mg Take 2 [facility] 40 mg 6-27 tablets by [facility]y of tablet 00:00: mouth [place] 00 every Medical morning Branch and evening. benzonatate 2022-0 Yes [id number] 200mg Take 1 [facility] 200 mg 6-27 capsule by [facility] of capsule 00:00: mouth 3 [place] 00 (three) Medical times Branch daily as needed for Cough. ferrous 2022-0 Yes [id number] 324mg Take 1 Un briana sulfate 324 6-27 tablet by ity of mg (65 mg 00:00: mouth [place] iron) EC 00 daily with Medic al tablet breakfast. Branch albuterol 2022-0 Yes [id number] 2.5mg Inhale 3 [facility] 2.5 mg /3 6-27 mL every 8 [facility] of mL (0.083 00:00: (eight) [place] %) 00 hours as Medical nebulizer needed for Bran ch solution Wheezing or Shortness of Breath. furosemide 2022-0 Yes [id number] 80mg Take 2 [facility] 40 mg 6-27 tablets by ity of tablet 00:00: mouth [place] 00 every Medical morning Branch and evening. benzonatate 2022-0 Yes [id number] 200mg Take 1 [facility] 200 mg 6-27 capsule by [facility] of capsule 00:00: mouth 3 [place] 00 (three) Medical times Branch daily as needed for Cough. ferrous 2022-0 Yes [id number] 324mg Take 1 Un briana sulfate 324 6-27 tablet by ity of mg (65 mg 00:00: mouth [place] iron) EC 00 daily with Medic al tablet breakfast. Branch albuterol 2022-0 Yes [id number] 2.5mg Inhale 3 [facility] 2.5 mg /3 6-27 mL every 8 [facility] of mL (0.083 00:00: (eight) [place] %) 00 hours as Medical nebulizer needed for Bran ch solution Wheezing or Shortness of Breath. furosemide 2022-0 Yes [id number] 80mg Take 2 [facility] 40 mg 6-27 tablets by [facility]y of tablet 00:00: mouth [place] 00 every Medical morning Branch and evening. benzonatate 2022-0 Yes [id number] 200mg Take 1 [facility] 200 mg 6-27 capsule by [facility] of capsule 00:00: mouth 3 [place] 00 (three) Medical times Branch daily as needed for Cough. ferrous 2022-0 Yes [id number] 324mg Take 1 Un briana sulfate 324 6-27 tablet by ity of mg (65 mg 00:00: mouth [place] iron) EC 00 daily with Medic al tablet breakfast. Branch albuterol 2022-0 Yes [id number] 2.5mg Inhale 3 [facility] 2.5 mg /3 6-27 mL every 8 [facility] of mL (0.083 00:00: (eight) [place] %) 00 hours as Medical nebulizer needed for Bran ch solution Wheezing or Shortness of Breath. furosemide 2022-0 Yes [id number] 80mg Take 2 [facility] 40 mg 6-27 tablets by ity of tablet 00:00: mouth [place] 00 every Medical morning Branch and evening. benzonatate 2022-0 Yes [id number] 200mg Take 1 [facility] 200 mg 6-27 capsule by [facility] of capsule 00:00: mouth 3 [place] 00 (three) Medical times Branch daily as needed for Cough. ferrous 2022-0 Yes [id number] 324mg Take 1 Un briana sulfate 324 6-27 tablet by ity of mg (65 mg 00:00: mouth [place] iron) EC 00 daily with Medic al tablet breakfast. Branch albuterol 2022-0 Yes [id number] 2.5mg Inhale 3 [facility] 2.5 mg /3 6-27 mL every 8 [facility] of mL (0.083 00:00: (eight) [place] %) 00 hours as Medical nebulizer needed for Bran ch solution Wheezing or Shortness of Breath. furosemide 2022-0 Yes [id number] 80mg Take 2 [facility] 40 mg 6-27 tablets by [facility] of tablet 00:00: mouth [place] 00 every Medical morning Branch and evening. benzonatate 2022-0 Yes [id number] 200mg Take 1 [facility] 200 mg 6-27 capsule by [facility]y of capsule 00:00: mouth 3 [place] 00 (three) Medical times Branch daily as needed for Cough. ferrous 2022-0 Yes [id number] 324mg Take 1 Un briana sulfate 324 6-27 tablet by ity of mg (65 mg 00:00: mouth [place] iron) EC 00 daily with Medic al tablet breakfast. Branch albuterol 2022-0 Yes [id number] 2.5mg Inhale 3 [facility] 2.5 mg /3 6-27 mL every 8 [facility] of mL (0.083 00:00: (eight) [place] %) 00 hours as Medical nebulizer needed for Bran ch solution Wheezing or Shortness of Breath. furosemide 2022-0 Yes [id number] 80mg Take 2 [facility] 40 mg 6-27 tablets by ity of tablet 00:00: mouth [place] 00 every Medical morning Branch and evening. benzonatate 2022-0 Yes [id number] 200mg Take 1 [facility] 200 mg 6-27 capsule by [facility] of capsule 00:00: mouth 3 [place] 00 (three) Medical times Branch daily as needed for Cough. ferrous 2022-0 Yes [id number] 324mg Take 1 Un briana sulfate 324 6-27 tablet by ity of mg (65 mg 00:00: mouth [place] iron) EC 00 daily with Medic al tablet breakfast. Branch albuterol 2022-0 Yes [id number] 2.5mg Inhale 3 [facility] 2.5 mg /3 6-27 mL every 8 [facility] of mL (0.083 00:00: (eight) [place] %) 00 hours as Medical nebulizer needed for Bran ch solution Wheezing or Shortness of Breath. furosemide 2022-0 Yes [id number] 80mg Take 2 [facility] 40 mg 6-27 tablets by ity of tablet 00:00: mouth [place] 00 every Medical morning Branch and evening. benzonatate 2022-0 Yes [id number] 200mg Take 1 [facility] 200 mg 6-27 capsule by [facility] of capsule 00:00: mouth 3 [place] 00 (three) Medical times Branch daily as needed for Cough. ferrous 2022-0 Yes [id number] 324mg Take 1 Un briana sulfate 324 6-27 tablet by [facility]y of mg (65 mg 00:00: mouth [place] iron) EC 00 daily with Medic al tablet breakfast. Branch albuterol 2022-0 Yes [id number] 2.5mg Inhale 3 [facility] 2.5 mg /3 6-27 mL every 8 [facility] of mL (0.083 00:00: (eight) [place] %) 00 hours as Medical nebulizer needed for Bran ch solution Wheezing or Shortness of Breath. furosemide 2022-0 Yes [id number] 80mg Take 2 [facility] 40 mg 6-27 tablets by ity of tablet 00:00: mouth [place] 00 every Medical morning Branch and evening. benzonatate 2022-0 Yes [id number] 200mg Take 1 [facility] 200 mg 6-27 capsule by [facility] of capsule 00:00: mouth 3 [place] 00 (three) Medical times Branch daily as needed for Cough. ferrous 2022-0 Yes [id number] 324mg Take 1 Un briana sulfate 324 6-27 tablet by ity of mg (65 mg 00:00: mouth [place] iron) EC 00 daily with Medic al tablet breakfast. Branch albuterol 2022-0 Yes [id number] 2.5mg Inhale 3 [facility] 2.5 mg /3 6-27 mL every 8 [facility] of mL (0.083 00:00: (eight) [place] %) 00 hours as Medical nebulizer needed for Bran ch solution Wheezing or Shortness of Breath. furosemide 2022-0 Yes [id number] 80mg Take 2 [facility] 40 mg 6-27 tablets by ity of tablet 00:00: mouth [place] 00 every Medical morning Branch and evening. benzonatate 3-0 Yes [id number] 200mg Take 1 [facility] 200 mg 6-27 capsule by ity of capsule 00:00: mouth 3 [place] 00 (three) Medical times Branch daily as needed for Cough. ferrous 2022-0 Yes [id number] 324mg Take 1 Un briana sulfate 324 6-27 tablet by ity of mg (65 mg 00:00: mouth [place] iron) EC 00 daily with Medic al tablet breakfast. Branch albuterol 2022-0 Yes [id number] 2.5mg Inhale 3 [facility] 2.5 mg /3 6-27 mL every 8 [facility]y of mL (0.083 00:00: (eight) [place] %) 00 hours as Medical nebulizer needed for Bran ch solution Wheezing or Shortness of Breath. furosemide 2022-0 Yes [id number] 80mg Take 2 [facility] 40 mg 6-27 tablets by ity of tablet 00:00: mouth [place] 00 every Medical morning Branch and evening. benzonatate 2022-0 Yes [id number] 200mg Take 1 [facility] 200 mg 6-27 capsule by [facility]y of capsule 00:00: mouth 3 [place] 00 (three) Medical times Branch daily as needed for Cough. ferrous 2022-0 Yes [id number] 324mg Take 1 Un briana sulfate 324 6-27 tablet by ity of mg (65 mg 00:00: mouth [place] iron) EC 00 daily with Medic al tablet breakfast. Branch albuterol 2022-0 Yes [id number] 2.5mg Inhale 3 [facility] 2.5 mg /3 6-27 mL every 8 ity of mL (0.083 00:00: (eight) [place] %) 00 hours as Medical nebulizer needed for Bran ch solution Wheezing or Shortness of Breath. furosemide 2022-0 Yes [id number] 80mg Take 2 [facility] 40 mg 6-27 tablets by ity of tablet 00:00: mouth [place] 00 every Medical morning Branch and evening. benzonatate 2022-0 Yes [id number] 200mg Take 1 [facility] 200 mg 6-27 capsule by ity of capsule 00:00: mouth 3 [place] 00 (three) Medical times Branch daily as needed for Cough. ferrous 2022-0 Yes [id number] 324mg Take 1 [facility] bri[place] sulfate 324 6-27 tablet by ity of mg (65 mg 00:00: mouth [place] iron) EC 00 daily with Medic al tablet breakfast. Branch albuterol 2022-0 Yes [id number] 2.5mg Inhale 3 [facility] 2.5 mg /3 6-27 mL every 8 ity of mL (0.083 00:00: (eight) [place] %) 00 hours as Medical nebulizer needed for Bran ch solution Wheezing or Shortness of Breath. furosemide 2022-0 Yes [id number] 80mg Take 2 [facility] 40 mg 6-27 tablets by ity of tablet 00:00: mouth [place] 00 every Medical morning Branch and evening. benzonatate 2022-0 Yes [id number] 200mg Take 1 [facility] 200 mg 6-27 capsule by ity of capsule 00:00: mouth 3 [place] 00 (three) Medical times Branch daily as needed for Cough. ferrous 2022-0 Yes [id number] 324mg Take 1 [facility] bri[place] sulfate 324 6-27 tablet by ity of mg (65 mg 00:00: mouth [place] iron) EC 00 daily with Medic al tablet breakfast. Branch albuterol 2022-0 Yes [id number] 2.5mg Inhale 3 [facility] 2.5 mg /3 6-27 mL every 8 ity of mL (0.083 00:00: (eight) [place] %) 00 hours as Medical nebulizer needed for Bran ch solution Wheezing or Shortness of Breath. furosemide 2022-0 Yes [id number] 80mg Take 2 [facility] 40 mg 6-27 tablets by ity of tablet 00:00: mouth [place] 00 every Medical morning Branch and evening. benzonatate 2022-0 Yes [id number] 200mg Take 1 [facility] 200 mg 6-27 capsule by [facility]y of capsule 00:00: mouth 3 [place] 00 (three) Medical times Branch daily as needed for Cough. ferrous 2022-0 Yes [id number] 324mg Take 1 Un briana sulfate 324 6-27 tablet by ity of mg (65 mg 00:00: mouth [place] iron) EC 00 daily with Medic al tablet breakfast. Branch albuterol 2022-0 Yes [id number] 2.5mg Inhale 3 [facility] 2.5 mg /3 6-27 mL every 8 ity of mL (0.083 00:00: (eight) [place] %) 00 hours as Medical nebulizer needed for Bran ch solution Wheezing or Shortness of Breath. furosemide 2022-0 Yes [id number] 80mg Take 2 [facility] 40 mg 6-27 tablets by ity of tablet 00:00: mouth [place] 00 every Medical morning Branch and evening. benzonatate 2022-0 Yes [id number] 200mg Take 1 [facility] 200 mg 6-27 capsule by ity of capsule 00:00: mouth 3 [place] 00 (three) Medical times Branch daily as needed for Cough. ferrous 2022-0 Yes [id number] 324mg Take 1 [facility] briana sulfate 324 6-27 tablet by ity of mg (65 mg 00:00: mouth [place] iron) EC 00 daily with Medic al tablet breakfast. Branch albuterol 2022-0 Yes [id number] 2.5mg Inhale 3 [facility] 2.5 mg /3 6-27 mL every 8 ity of mL (0.083 00:00: (eight) [place] %) 00 hours as Medical nebulizer needed for Bran ch solution Wheezing or Shortness of Breath. furosemide 2022-0 Yes [id number] 80mg Take 2 [facility] 40 mg 6-27 tablets by ity of tablet 00:00: mouth [place] 00 every Medical morning Branch and evening. benzonatate 2022-0 Yes [id number] 200mg Take 1 [facility] 200 mg 6-27 capsule by ity of capsule 00:00: mouth 3 [place] 00 (three) Medical times Branch daily as needed for Cough. ferrous 2022-0 Yes [id number] 324mg Take 1 [facility] bri[place] sulfate 324 6-27 tablet by ity of mg (65 mg 00:00: mouth [place] iron) EC 00 daily with Medic al tablet breakfast. Branch albuterol 2022-0 Yes [id number] 2.5mg Inhale 3 [facility] 2.5 mg /3 6-27 mL every 8 [facility]y of mL (0.083 00:00: (eight) [place] %) 00 hours as Medical nebulizer needed for Bran ch solution Wheezing or Shortness of Breath. furosemide 2022-0 Yes [id number] 80mg Take 2 [facility] 40 mg 6-27 tablets by ity of tablet 00:00: mouth [place] 00 every Medical morning Branch and evening. benzonatate 2023-0 Yes [id number] 200mg Take 1 [facility] 200 mg 6-27 capsule by ity of capsule 00:00: mouth 3 [place] 00 (three) Medical times Branch daily as needed for Cough. ferrous 2022-0 Yes [id number] 324mg Take 1 Un briana sulfate 324 6-27 tablet by ity of mg (65 mg 00:00: mouth [place] iron) EC 00 daily with Medic al tablet breakfast. Branch albuterol 2022-0 Yes [id number] 2.5mg Inhale 3 [facility] 2.5 mg /3 6-27 mL every 8 [facility]y of mL (0.083 00:00: (eight) [place] %) 00 hours as Medical nebulizer needed for Bran ch solution Wheezing or Shortness of Breath. furosemide 2022-0 Yes [id number] 80mg Take 2 [facility] 40 mg 6-27 tablets by ity of tablet 00:00: mouth [place] 00 every Medical morning Branch and evening. benzonatate 2022-0 Yes [id number] 200mg Take 1 [facility] 200 mg 6-27 capsule by ity of capsule 00:00: mouth 3 [place] 00 (three) Medical times Branch daily as needed for Cough. ferrous 2022-0 Yes [id number] 324mg Take 1 [facility] briana sulfate 324 6-27 tablet by ity of mg (65 mg 00:00: mouth [place] iron) EC 00 daily with Medic al tablet breakfast. Branch albuterol 2022-0 Yes [id number] 2.5mg Inhale 3 [facility] 2.5 mg /3 6-27 mL every 8 ity of mL (0.083 00:00: (eight) [place] %) 00 hours as Medical nebulizer needed for Bran ch solution Wheezing or Shortness of Breath. furosemide 2022-0 Yes [id number] 80mg Take 2 [facility] 40 mg 6-27 tablets by ity of tablet 00:00: mouth [place] 00 every Medical morning Branch and evening. benzonatate 2022-0 Yes [id number] 200mg Take 1 [facility] 200 mg 6-27 capsule by [facility]y of capsule 00:00: mouth 3 [place] 00 (three) Medical times Branch daily as needed for Cough. ferrous 2022-0 Yes [id number] 324mg Take 1 Un briana sulfate 324 6-27 tablet by ity of mg (65 mg 00:00: mouth [place] iron) EC 00 daily with Medic al tablet breakfast. Branch albuterol 2022-0 Yes [id number] 2.5mg Inhale 3 [facility] 2.5 mg /3 6-27 mL every 8 [facility]y of mL (0.083 00:00: (eight) [place] %) 00 hours as Medical nebulizer needed for Bran ch solution Wheezing or Shortness of Breath. benzonatate 3-0 Yes [id number] 200mg Take 1 [facility] 200 mg 6-27 capsule by [facility]y of capsule 00:00: mouth 3 [place] 00 (three) Medical times Branch daily as needed for Cough. ferrous 2023-0 Yes [id number] 324mg Take 1 Un briana sulfate 324 6-27 tablet by ity of mg (65 mg 00:00: mouth [place] iron) EC 00 daily with Medic al tablet breakfast. Branch albuterol 2022-0 Yes [id number] 2.5mg Inhale 3 [facility] 2.5 mg /3 6-27 mL every 8 [facility]y of mL (0.083 00:00: (eight) [place] %) 00 hours as Medical nebulizer needed for Bran ch solution Wheezing or Shortness of Breath. benzonatate 2022-0 Yes [id number] 200mg Take 1 [facility] 200 mg 6-27 capsule by [facility]y of capsule 00:00: mouth 3 [place] 00 (three) Medical times Branch daily as needed for Cough. ferrous 2022-0 Yes [id number] 324mg Take 1 Un briana sulfate 324 6-27 tablet by ity of mg (65 mg 00:00: mouth [place] iron) EC 00 daily with Medic al tablet breakfast. Branch albuterol 2022-0 Yes [id number] 2.5mg Inhale 3 [facility] 2.5 mg /3 6-27 mL every 8 [facility]y of mL (0.083 00:00: (eight) [place] %) 00 hours as Medical nebulizer needed for Bran ch solution Wheezing or Shortness of Breath. benzonatate 2022-0 Yes [id number] 200mg Take 1 [facility] 200 mg 6-27 capsule by [facility]y of capsule 00:00: mouth 3 00 (three) Medical times Branch daily as needed for Cough. ferrous 2022-0 Yes [id number] 324mg Take 1 [facility] briana sulfate 324 6-27 tablet by ity of mg (65 mg 00:00: mouth [place] iron) EC 00 daily with Medic al tablet breakfast. Branch albuterol 2022-0 Yes [id number] 2.5mg Inhale 3 [facility] 2.5 mg /3 6-27 mL every 8 [facility]y of mL (0.083 00:00: (eight) [place] %) 00 hours as Medical nebulizer needed for Bran ch solution Wheezing or Shortness of Breath. benzonatate 2022-0 Yes [id number] 200mg Take 1 [facility] 200 mg 6-27 capsule by [facility]y of capsule 00:00: mouth 3 [place] 00 (three) Medical times Branch daily as needed for Cough. ferrous 2022-0 Yes [id number] 324mg Take 1 Un briana sulfate 324 6-27 tablet by ity of mg (65 mg 00:00: mouth [place] iron) EC 00 daily with Medic al tablet breakfast. Branch albuterol 2022-0 Yes [id number] 2.5mg Inhale 3 [facility] 2.5 mg /3 6-27 mL every 8 [facility]y of mL (0.083 00:00: (eight) [place] %) 00 hours as Medical nebulizer needed for Bran ch solution Wheezing or Shortness of Breath. benzonatate 2022-0 Yes [id number] 200mg Take 1 [facility] 200 mg 6-27 capsule by [facility]y of capsule 00:00: mouth 3 [place] 00 (three) Medical times Branch daily as needed for Cough. ferrous 2022-0 Yes [id number] 324mg Take 1 Un briana sulfate 324 6-27 tablet by [facility]y of mg (65 mg 00:00: mouth [place] iron) EC 00 daily with Medic al tablet breakfast. Branch albuterol 2022-0 Yes [id number] 2.5mg Inhale 3 [facility] 2.5 mg /3 6-27 mL every 8 [facility]y of mL (0.083 00:00: (eight) [place] %) 00 hours as Medical nebulizer needed for Bran ch solution Wheezing or Shortness of Breath. benzonatate 2022-0 Yes [id number] 200mg Take 1 [facility] 200 mg 6-27 capsule by [facility] of capsule 00:00: mouth 3 [place] 00 (three) Medical times Branch daily as needed for Cough. ferrous 2022-0 Yes [id number] 324mg Take 1 Un briana sulfate 324 6-27 tablet by ity of mg (65 mg 00:00: mouth [place] iron) EC 00 daily with Medic al tablet breakfast. Branch albuterol 2022-0 Yes [id number] 2.5mg Inhale 3 [facility] 2.5 mg /3 6-27 mL every 8 [facility]y of mL (0.083 00:00: (eight) [place] %) 00 hours as Medical nebulizer needed for Bran ch solution Wheezing or Shortness of Breath. benzonatate 2022-0 Yes [id number] 200mg Take 1 [facility] 200 mg 6-27 capsule by [facility] of capsule 00:00: mouth 3 [place] 00 (three) Medical times Branch daily as needed for Cough. ferrous 2023-0 Yes [id number] 324mg Take 1 Un briana sulfate 324 6-27 tablet by ity of mg (65 mg 00:00: mouth [place] iron) EC 00 daily with Medic al tablet breakfast. Branch albuterol 2022-0 Yes [id number] 2.5mg Inhale 3 [facility] 2.5 mg /3 6-27 mL every 8 [facility]y of mL (0.083 00:00: (eight) [place] %) 00 hours as Medical nebulizer needed for Bran ch solution Wheezing or Shortness of Breath. benzonatate 2022-0 Yes [id number] 200mg Take 1 [facility] 200 mg 6-27 capsule by [facility]y of capsule 00:00: mouth 3 [place] 00 (three) Medical times Branch daily as needed for Cough. ferrous 2022-0 Yes [id number] 324mg Take 1 Un briana sulfate 324 6-27 tablet by ity of mg (65 mg 00:00: mouth [place] iron) EC 00 daily with Medic al tablet breakfast. Branch albuterol 2022-0 Yes [id number] 2.5mg Inhale 3 [facility] 2.5 mg /3 6-27 mL every 8 [facility]y of mL (0.083 00:00: (eight) [place] %) 00 hours as Medical nebulizer needed for Bran ch solution Wheezing or Shortness of Breath. benzonatate 2022-0 Yes [id number] 200mg Take 1 [facility] 200 mg 6-27 capsule by [facility]y of capsule 00:00: mouth 3 [place] 00 (three) Medical times Branch daily as needed for Cough. ferrous 2022-0 Yes [id number] 324mg Take 1 Un briana sulfate 324 6-27 tablet by ity of mg (65 mg 00:00: mouth [place] iron) EC 00 daily with Medic al tablet breakfast. Branch albuterol 2022-0 Yes [id number] 2.5mg Inhale 3 [facility] 2.5 mg /3 6-27 mL every 8 [facility]y of mL (0.083 00:00: (eight) [place] %) 00 hours as Medical nebulizer needed for Bran ch solution Wheezing or Shortness of Breath. benzonatate 2022-0 Yes [id number] 200mg Take 1 [facility] 200 mg 6-27 capsule by [facility]y of capsule 00:00: mouth 3 [place] 00 (three) Medical times Branch daily as needed for Cough. ferrous 2022-0 Yes [id number] 324mg Take 1 Un briana sulfate 324 6-27 tablet by ity of mg (65 mg 00:00: mouth [place] iron) EC 00 daily with Medic al tablet breakfast. Branch albuterol 2022-0 Yes [id number] 2.5mg Inhale 3 [facility] 2.5 mg /3 6-27 mL every 8 [facility]y of mL (0.083 00:00: (eight) [place] %) 00 hours as Medical nebulizer needed for Bran ch solution Wheezing or Shortness of Breath. benzonatate 2022-0 Yes [id number] 200mg Take 1 [facility] 200 mg 6-27 capsule by [facility]y of capsule 00:00: mouth 3 [place] 00 (three) Medical times Branch daily as needed for Cough. ferrous 2022-0 Yes [id number] 324mg Take 1 Un briana sulfate 324 6-27 tablet by ity of mg (65 mg 00:00: mouth [place] iron) EC 00 daily with Medic al tablet breakfast. Branch albuterol 2022-0 Yes [id number] 2.5mg Inhale 3 [facility] 2.5 mg /3 6-27 mL every 8 [facility]y of mL (0.083 00:00: (eight) [place] %) 00 hours as Medical nebulizer needed for Bran ch solution Wheezing or Shortness of Breath. benzonatate 2022-0 Yes [id number] 200mg Take 1 [facility] 200 mg 6-27 capsule by [facility]y of capsule 00:00: mouth 3 [place] 00 (three) Medical times Branch daily as needed for Cough. ferrous 2022-0 Yes [id number] 324mg Take 1 Un briana sulfate 324 6-27 tablet by ity of mg (65 mg 00:00: mouth [place] iron) EC 00 daily with Medic al tablet breakfast. Branch albuterol 2022-0 Yes [id number] 2.5mg Inhale 3 [facility] 2.5 mg /3 6-27 mL every 8 ity of mL (0.083 00:00: (eight) [place] %) 00 hours as Medical nebulizer needed for Bran ch solution Wheezing or Shortness of Breath. benzonatate 2022-0 Yes [id number] 200mg Take 1 [facility] 200 mg 6-27 capsule by ity of capsule 00:00: mouth 3 [place] 00 (three) Medical times Branch daily as needed for Cough. ferrous 2022-0 Yes [id number] 324mg Take 1 Un briana sulfate 324 6-27 tablet by ity of mg (65 mg 00:00: mouth [place] iron) EC 00 daily with Medic al tablet breakfast. Branch albuterol 2022-0 Yes [id number] 2.5mg Inhale 3 [facility] 2.5 mg /3 6-27 mL every 8 ity of mL (0.083 00:00: (eight) [place] %) 00 hours as Medical nebulizer needed for Bran ch solution Wheezing or Shortness of Breath. benzonatate 2022-0 Yes [id number] 200mg Take 1 [facility] 200 mg 6-27 capsule by ity of capsule 00:00: mouth 3 [place] 00 (three) Medical times Branch daily as needed for Cough. ferrous 2022-0 Yes [id number] 324mg Take 1 Un briana sulfate 324 6-27 tablet by ity of mg (65 mg 00:00: mouth [place] iron) EC 00 daily with Medic al tablet breakfast. Branch albuterol 2022-0 Yes [id number] 2.5mg Inhale 3 [facility] 2.5 mg /3 6-27 mL every 8 ity of mL (0.083 00:00: (eight) [place] %) 00 hours as Medical nebulizer needed for Bran ch solution Wheezing or Shortness of Breath. benzonatate 2022-0 Yes [id number] 200mg Take 1 [facility] 200 mg 6-27 capsule by ity of capsule 00:00: mouth 3 [place] 00 (three) Medical times Branch daily as needed for Cough. ferrous 2022-0 Yes [id number] 324mg Take 1 Un briana sulfate 324 6-27 tablet by ity of mg (65 mg 00:00: mouth [place] iron) EC 00 daily with Medic al tablet breakfast. Branch albuterol 2022-0 Yes [id number] 2.5mg Inhale 3 [facility] 2.5 mg /3 6-27 mL every 8 ity of mL (0.083 00:00: (eight) [place] %) 00 hours as Medical nebulizer needed for Bran ch solution Wheezing or Shortness of Breath. benzonatate 2022-0 Yes [id number] 200mg Take 1 [facility] 200 mg 6-27 capsule by ity of capsule 00:00: mouth 3 [place] 00 (three) Medical times Branch daily as needed for Cough. ferrous 2022-0 Yes [id number] 324mg Take 1 Un briana sulfate 324 6-27 tablet by ity of mg (65 mg 00:00: mouth [place] iron) EC 00 daily with Medic al tablet breakfast. Branch albuterol 2022-0 Yes [id number] 2.5mg Inhale 3 [facility] 2.5 mg /3 6-27 mL every 8 ity of mL (0.083 00:00: (eight) [place] %) 00 hours as Medical nebulizer needed for Bran ch solution Wheezing or Shortness of Breath. benzonatate 2022-0 Yes [id number] 200mg Take 1 [facility] 200 mg 6-27 capsule by ity of capsule 00:00: mouth 3 [place] 00 (three) Medical times Branch daily as needed for Cough. ferrous 2022-0 Yes [id number] 324mg Take 1 Un briana sulfate 324 6-27 tablet by ity of mg (65 mg 00:00: mouth [place] iron) EC 00 daily with Medic al tablet breakfast. Branch albuterol 2022-0 Yes [id number] 2.5mg Inhale 3 [facility] 2.5 mg /3 6-27 mL every 8 ity of mL (0.083 00:00: (eight) [place] %) 00 hours as Medical nebulizer needed for Bran ch solution Wheezing or Shortness of Breath. benzonatate 2022-0 Yes [id number] 200mg Take 1 [facility] 200 mg 6-27 capsule by ity of capsule 00:00: mouth 3 [place] 00 (three) Medical times Branch daily as needed for Cough. ferrous 2022-0 Yes [id number] 324mg Take 1 Un briana sulfate 324 6-27 tablet by ity of mg (65 mg 00:00: mouth [place] iron) EC 00 daily with Medic al tablet breakfast. Branch albuterol 2022-0 Yes [id number] 2.5mg Inhale 3 [facility] 2.5 mg /3 6-27 mL every 8 ity of mL (0.083 00:00: (eight) [place] %) 00 hours as Medical nebulizer needed for Bran ch solution Wheezing or Shortness of Breath. benzonatate 2022-0 Yes [id number] 200mg Take 1 [facility] 200 mg 6-27 capsule by ity of capsule 00:00: mouth 3 [place] 00 (three) Medical times Branch daily as needed for Cough. ferrous 2022-0 Yes [id number] 324mg Take 1 Un briana sulfate 324 6-27 tablet by ity of mg (65 mg 00:00: mouth [place] iron) EC 00 daily with Medic al tablet breakfast. Branch albuterol 2022-0 Yes [id number] 2.5mg Inhale 3 [facility] 2.5 mg /3 6-27 mL every 8 ity of mL (0.083 00:00: (eight) [place] %) 00 hours as Medical nebulizer needed for Bran ch solution Wheezing or Shortness of Breath. benzonatate 2022-0 Yes [id number] 200mg Take 1 [facility] 200 mg 6-27 capsule by ity of capsule 00:00: mouth 3 [place] 00 (three) Medical times Branch daily as needed for Cough. ferrous 2022-0 Yes [id number] 324mg Take 1 Un briana sulfate 324 6-27 tablet by ity of mg (65 mg 00:00: mouth [place] iron) EC 00 daily with Medic al tablet breakfast. Branch albuterol 2022-0 Yes [id number] 2.5mg Inhale 3 [facility] 2.5 mg /3 6-27 mL every 8 ity of mL (0.083 00:00: (eight) [place] %) 00 hours as Medical nebulizer needed for Bran ch solution Wheezing or Shortness of Breath. benzonatate 2022-0 Yes [id number] 200mg Take 1 [facility] 200 mg 6-27 capsule by ity of capsule 00:00: mouth 3 [place] 00 (three) Medical times Branch daily as needed for Cough. ferrous 2022-0 Yes [id number] 324mg Take 1 Un briana sulfate 324 6-27 tablet by ity of mg (65 mg 00:00: mouth [place] iron) EC 00 daily with Medic al tablet breakfast. Branch albuterol 2022-0 Yes [id number] 2.5mg Inhale 3 [facility] 2.5 mg /3 6-27 mL every 8 ity of mL (0.083 00:00: (eight) [place] %) 00 hours as Medical nebulizer needed for Bran ch solution Wheezing or Shortness of Breath. benzonatate 2022-0 Yes [id number] 200mg Take 1 [facility] 200 mg 6-27 capsule by ity of capsule 00:00: mouth 3 [place] 00 (three) Medical times Branch daily as needed for Cough. ferrous 2022-0 Yes [id number] 324mg Take 1 Un briana sulfate 324 6-27 tablet by ity of mg (65 mg 00:00: mouth [place] iron) EC 00 daily with Medic al tablet breakfast. Branch furosemide 2022- No [id number] 80mg Take 2 [facility] 40 mg 6-27 10-23 tablets by ity of tablet 00:00: 00:00 mouth [place] 00 :00 every Medical morning Branch and evening. furosemide 2022-2022- No [id number] 80mg Take 2 [facility] 40 mg 6-27 10-23 tablets by ity of tablet 00:00: 00:00 mouth [place] 00 :00 every Medical morning Branch and evening. carvediloL 2022- No 3.125mg Take 1 U nivers 3.125 mg 6-27 -26 tablet by ity o f tablet 00:00: 04:59 mouth 2 [place] 00 :00 ([facility]) Medical times [place] daily with meals for 90 days. carvediloL 2022- No 3.125mg Take 1 U nivers 3.125 mg 6-27 - tablet by ity o f tablet 00:00: 04:59 mouth 2 [place] 00 :00 ([facility]) [facility] times [place] daily with meals for 90 days. carvediloL 2022- No 3.125mg Take 1 U nivers 3.125 mg 6-27 - tablet by ity o f tablet 00:00: 04:59 mouth 2 [place] 00 :00 ([facility]) [facility] times [place] daily with meals for 90 days. carvediloL 2022-2022- No 3.125mg Take 1 U nivers 3.125 mg 6-27 - tablet by ity o f tablet 00:00: 04:59 mouth 2 [place] 00 :00 ([facility]) [facility] times [place] daily with meals for 90 days. carvediloL 2022- No 3.125mg Take 1 U nivers 3.125 mg 6-27 - tablet by ity o f tablet 00:00: 04:59 mouth 2 [place] 00 :00 ([facility]) [facility] times [place] daily with meals for 90 days. carvediloL 2022- No 3.125mg Take 1 U nivers 3.125 mg 6-27 -26 tablet by ity o f tablet 00:00: 04:59 mouth 2 [place] 00 :00 ([facility]) Medical times [place] daily with meals for 90 days. carvediloL [...] o f tablet 00:00: 04:59 mouth 2 [place] 00 :00 ([facility]) Medical times Branch daily with meals for 90 days. carvediloL 2023-0 2023- No 3.125mg Take 1 U nivers 3.125 mg 6-27 - tablet by ity o f tablet 00:00: 04:59 mouth 2 [place] 00 :00 (two) Medical times Branch daily with meals for 90 days. carvediloL 2023-0 2023- No 3.125mg Take 1 U nivers 3.125 mg 6-27 - tablet by ity o f tablet 00:00: 04:59 mouth 2 [place] 00 :00 (two) Medical times Branch daily with meals for 90 days. carvediloL 2023-0 2023- No 3.125mg Take 1 U nivers 3.125 mg 6-27 - tablet by ity o f tablet 00:00: 04:59 mouth 2 [place] 00 :00 (two) Medical times Branch daily [...] with meals for 90 days. carvediloL 2023-0 3- No 3.125mg Take 1 U nivers 3.125 mg 08-09 09-26 tablet by ity o f tablet 00:00: 04:59 mouth 2 [place] 00 :00 (two) Medical times Branch daily with meals for 90 days. ipratropium 2023-0 2023- No [id number] .5mg Inhale 2.5 [facility] 0.02 % 6-27 08-17 mL every 6 ity of nebulizer 00:00: 00:00 (six) [place] solution 00 :00 hours as Medical needed for Branch Wheezing or Shortness of Breath. ipratropium 2023-0 2023- No [id number] .5mg Inhale 2.5 [facility] 0.02 % 6-27 08-17 mL every 6 ity of nebulizer 00:00: 00:00 (six) [place] solution 00 :00 hours as Medical needed for Branch Wheezing or Shortness of Breath. ipratropium 2023-0 2023- No [id number] .5mg Inhale 2.5 [facility] 0.02 % 627 08-17 mL every 6 ity of nebulizer 00:00: 00:00 (six) [place] solution 00 :00 hours as Medical needed for Branch Wheezing or Shortness of Breath. furosemide 2023-0 Yes [id number] 80mg Take 2 [facility] 40 mg 5-16 tablets by ity of tablet 00:00: mouth [place] 00 every Medical morning Branch and evening. furosemide 2023-0 Yes [id number] 80mg Take 2 [facility] 40 mg 5-16 tablets by ity of tablet 00:00: mouth [place] 00 every Medical morning Branch and evening. furosemide 2023-0 Yes [id number] 80mg Take 2 [facility] 40 mg 5-16 tablets by ity of tablet 00:00: mouth [place] 00 every Medical morning Branch and evening. furosemide 2023-0 Yes [id number] 80mg Take 2 [facility] 40 mg 5-16 tablets by ity of tablet 00:00: mouth [place] 00 every Medical morning Branch and evening. furosemide 2023-0 Yes [id number] 80mg Take 2 [facility] 40 mg 5-16 tablets by ity of tablet 00:00: mouth [place] 00 every Medical morning Branch and evening. furosemide 2023-0 Yes [id number] 80mg Take 2 [facility] 40 mg 5-16 tablets by ity of tablet 00:00: mouth [place] 00 every Medical morning Branch and evening. furosemide 2022-0 Yes [id number] 80mg Take 2 [facility] 40 mg 5-16 tablets by ity of tablet 00:00: mouth [place] 00 every Medical morning Branch and evening. furosemide 2022-0 Yes [id number] 80mg Take 2 [facility] 40 mg 5-16 tablets by ity of tablet 00:00: mouth [place] 00 every Medical morning Branch and evening. furosemide 2022-0 Yes [id number] 80mg Take 2 [facility] 40 mg 5-16 tablets by ity of tablet 00:00: mouth [place] 00 every Medical morning Branch and evening. furosemide 2022-0 Yes [id number] 80mg Take 2 [facility] 40 mg 5-16 tablets by ity of tablet 00:00: mouth [place] 00 every Medical morning Branch and evening. furosemide 2022-0 Yes [id number] 80mg Take 2 [facility] 40 mg 5-16 tablets by ity of tablet 00:00: mouth [place] 00 every Medical morning Branch and evening. furosemide 2022-0 Yes [id number] 80mg Take 2 [facility] 40 mg 5-16 tablets by ity of tablet 00:00: mouth [place] 00 every Medical morning Branch and evening. furosemide 2022-0 Yes [id number] 80mg Take 2 [facility] 40 mg 5-16 tablets by ity of tablet 00:00: mouth [place] 00 every Medical morning Branch and evening. furosemide 2022-0 Yes [id number] 80mg Take 2 [facility] 40 mg 5-16 tablets by ity of tablet 00:00: mouth [place] 00 every Medical morning Branch and evening. furosemide 2022-0 3- No [id number] 80mg Take 2 [facility] 40 mg 5-16 06-27 tablets by ity of tablet 00:00: 00:00 mouth [place] 00 :00 every Medical morning Branch and evening. furosemide 2022-0 2023- No [id number] 80mg Take 2 [facility] 40 mg 5-16 06-27 tablets by ity of tablet 00:00: 00:00 mouth [place] 00 :00 every Medical morning Branch and evening. furosemide 2022-0 2022- No [id number] 80mg Take 2 [facility] 40 mg 5-16 06-27 tablets by ity of tablet 00:00: 00:00 mouth [place] 00 :00 every Medical morning Branch and evening. regadenoson 2022-0 3- No [id number] .4mg 0.4 mg, IV [facility] (LEXISCAN) 06-23 Push, ity of injection 17:00: 15:51 ONCE, 1 [place] 0.[place] 00 :00 dose, On [facility] Branch 06/23/22 at 1200, Routine
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 Restricted medication : CECI LO tc 2022- No [id number] 43.8mCi 43.8 Unive rs 99m-tetrofo 06-23 millicurie [facility] 15:30: 15:19 , [place] ([facility]) 00 :00 Intravenou Medi angelica injection s, ONCE, 1 Bran ch 43.8 dose, On [facility] 06/23/22 at 1030, Routine tc 2022- No [id number] 16.5mCi 16.5 Unive rs 99m-tetrofo 06-23 millicurie i ty [facility] 13:45: 13:45 , [place] ([facility]) 00 :00 Intravenou Medi angelica injection s, ONCE, 1 Bran ch 16.5 dose, On [facility] 06/23/22 at 0845, Routine furosemide 2022-0 Yes [id number] 80mg Take 2 [facility] 40 mg 5-09 tablets by ity of tablet 00:00: mouth [place] 00 every Medical morning Branch and evening. furosemide 3-0 Yes [id number] 80mg Take 2 [facility] 40 mg 5-09 tablets by ity of tablet 00:00: mouth [place] 00 every Medical morning Branch and evening. furosemide 2023-0 Yes [id number] 80mg Take 2 [facility] 40 mg 5-09 tablets by ity of tablet 00:00: mouth [place] 00 every Medical morning Branch and evening. furosemide 2023-0 Yes [id number] 80mg Take 2 [facility] 40 mg 5-09 tablets by ity of tablet 00:00: mouth [place] 00 every Medical morning Branch and evening. furosemide 2023-0 Yes [id number] 80mg Take 2 [facility] 40 mg 5-09 tablets by ity of tablet 00:00: mouth [place] 00 every Medical morning Branch and evening. furosemide 2023-0 Yes [id number] 80mg Take 2 [facility] 40 mg 5-09 tablets by ity of tablet 00:00: mouth [place] 00 every Medical morning Branch and evening. furosemide 2022-0 2022- No [id number] 80mg Take 2 [facility] 40 mg 5-09 05-16 tablets by ity of tablet 00:00: 00:00 mouth [place] 00 :00 every Medical morning Branch and evening. furosemide 2022-0 2022- No [id number] 80mg Take 2 [facility] 40 mg 5-09 05-16 tablets by ity of tablet 00:00: 00:00 mouth [place] 00 :00 every Medical morning Branch and evening. atorvastati 2022-0 Yes [id number] 20mg Take 1 [facility] n 20 mg 4-28 tablet by ity of tablet 00:00: mouth at [place] 00 bedtime. Medical Branch furosemide 2022-0 Yes [id number] 40mg Take 1 [facility] 40 mg 4-28 tablet by ity of tablet 00:00: mouth [place] 00 every Medical morning Branch and evening. losartan 50 2022-0 Yes [id number] 25mg Take 0.5 [facility] mg tablet 4-28 tablets by ity of 00:00: mouth [place] 00 every day Medical at 1200 Branch (noon). ipratropium 2022-0 Yes [id number] .5mg Inhale 2.5 [facility] 0.02 % 4-28 mL every 6 ity of nebulizer 00:00: (six) [place] solution 00 hours as Medical needed for Branch Wheezing or Shortness of Breath. albuterol 2022-0 Yes [id number] 2.5mg Inhale 3 [facility] 2.5 mg /3 4-28 mL every 8 ity of mL (0.083 00:00: (eight) [place] %) 00 hours as Medical nebulizer needed for Bran ch solution Wheezing or Shortness of Breath. atorvastati 2022-0 Yes [id number] 20mg Take 1 [facility] n 20 mg 4-28 tablet by ity of tablet 00:00: mouth at [place] 00 bedtime. Medical Branch furosemide 2022-0 Yes [id number] 40mg Take 1 [facility] 40 mg 4-28 tablet by ity of tablet 00:00: mouth [place] 00 every Medical morning Branch and evening. losartan 50 2022-0 Yes [id number] 25mg Take 0.5 [facility] mg tablet 4-28 tablets by ity of 00:00: mouth [place] 00 every day Medical at 1200 Branch (noon). ipratropium 3-0 Yes [id number] .5mg Inhale 2.5 [facility] 0.02 % 4-28 mL every 6 ity of nebulizer 00:00: (six) [place] solution 00 hours as Medical needed for Branch Wheezing or Shortness of Breath. albuterol 3-0 Yes [id number] 2.5mg Inhale 3 [facility] 2.5 mg /3 4-28 mL every 8 ity of mL (0.083 00:00: (eight) [place] %) 00 hours as Medical nebulizer needed for Bran ch solution Wheezing or Shortness of Breath. atorvastati 2022-0 Yes [id number] 20mg Take 1 [facility] n 20 mg 4-28 tablet by ity of tablet 00:00: mouth at [place] 00 bedtime. Medical Branch furosemide 2022-0 Yes [id number] 40mg Take 1 [facility] 40 mg 4-28 tablet by ity of tablet 00:00: mouth [place] 00 every Medical morning Branch and evening. losartan 50 2022-0 Yes [id number] 25mg Take 0.5 [facility] mg tablet 4-28 tablets by ity of 00:00: mouth [place] 00 every day Medical at 1200 Branch (noon). ipratropium 2022-0 Yes [id number] .5mg Inhale 2.5 [facility] 0.02 % 4-28 mL every 6 ity of nebulizer 00:00: (six) [place] solution 00 hours as Medical needed for Branch Wheezing or Shortness of Breath. albuterol 2022-0 Yes [id number] 2.5mg Inhale 3 [facility] 2.5 mg /3 4-28 mL every 8 ity of mL (0.083 00:00: (eight) [place] %) 00 hours as Medical nebulizer needed for Bran ch solution Wheezing or Shortness of Breath. atorvastati 2022-0 Yes [id number] 20mg Take 1 [facility] n 20 mg 4-28 tablet by ity of tablet 00:00: mouth at [place] 00 bedtime. Medical Branch furosemide 3-0 Yes [id number] 40mg Take 1 [facility] 40 mg 4-28 tablet by ity of tablet 00:00: mouth [place] 00 every Medical morning Branch and evening. losartan 50 3-0 Yes [id number] 25mg Take 0.5 [facility] mg tablet 4-28 tablets by ity of 00:00: mouth [place] 00 every day Medical at 1200 Branch (noon). ipratropium 2022-0 Yes [id number] .5mg Inhale 2.5 [facility] 0.02 % 4-28 mL every 6 ity of nebulizer 00:00: (six) [place] solution 00 hours as Medical needed for Branch Wheezing or Shortness of Breath. albuterol 2023-0 Yes [id number] 2.5mg Inhale 3 [facility] 2.5 mg /3 4-28 mL every 8 ity of mL (0.083 00:00: (eight) [place] %) 00 hours as Medical nebulizer needed for Bran ch solution Wheezing or Shortness of Breath. atorvastati 2022-0 Yes [id number] 20mg Take 1 [facility] n 20 mg 4-28 tablet by ity of tablet 00:00: mouth at [place] 00 bedtime. Medical Branch furosemide 2022-0 Yes [id number] 40mg Take 1 [facility] 40 mg 4-28 tablet by ity of tablet 00:00: mouth [place] 00 every Medical morning Branch and evening. losartan 50 2022-0 Yes [id number] 25mg Take 0.5 [facility] mg tablet 4-28 tablets by ity of 00:00: mouth [place] 00 every day Medical at 1200 Branch (noon). ipratropium 3-0 Yes [id number] .5mg Inhale 2.5 [facility] 0.02 % 4-28 mL every 6 ity of nebulizer 00:00: (six) [place] solution 00 hours as Medical needed for Branch Wheezing or Shortness of Breath. albuterol 2022-0 Yes [id number] 2.5mg Inhale 3 [facility] 2.5 mg /3 4-28 mL every 8 ity of mL (0.083 00:00: (eight) [place] %) 00 hours as Medical nebulizer needed for Bran ch solution Wheezing or Shortness of Breath. atorvastati 2022-0 Yes [id number] 20mg Take 1 [facility] n 20 mg 4-28 tablet by ity of tablet 00:00: mouth at [place] 00 bedtime. Medical Branch furosemide 2022-0 Yes [id number] 40mg Take 1 [facility] 40 mg 4-28 tablet by ity of tablet 00:00: mouth [place] 00 every Medical morning Branch and evening. losartan 50 2022-0 Yes [id number] 25mg Take 0.5 [facility] mg tablet 4-28 tablets by ity of 00:00: mouth [place] 00 every day Medical at 1200 Branch (noon). ipratropium 2023-0 Yes [id number] .5mg Inhale 2.5 [facility] 0.02 % 4-28 mL every 6 ity of nebulizer 00:00: (six) [place] solution 00 hours as Medical needed for Branch Wheezing or Shortness of Breath. albuterol 2023-0 Yes [id number] 2.5mg Inhale 3 [facility] 2.5 mg /3 4-28 mL every 8 ity of mL (0.083 00:00: (eight) [place] %) 00 hours as Medical nebulizer needed for Bran ch solution Wheezing or Shortness of Breath. atorvastati 2022-0 Yes [id number] 20mg Take 1 [facility] n 20 mg 4-28 tablet by ity of tablet 00:00: mouth at [place] 00 bedtime. Medical Branch furosemide 2022-0 Yes [id number] 40mg Take 1 [facility] 40 mg 4-28 tablet by ity of tablet 00:00: mouth [place] 00 every Medical morning Branch and evening. losartan 50 2022-0 Yes [id number] 25mg Take 0.5 [facility] mg tablet 4-28 tablets by ity of 00:00: mouth [place] 00 every day Medical at 1200 Branch (noon). ipratropium 3-0 Yes [id number] .5mg Inhale 2.5 [facility] 0.02 % 4-28 mL every 6 ity of nebulizer 00:00: (six) [place] solution 00 hours as Medical needed for Branch Wheezing or Shortness of Breath. albuterol 3-0 Yes [id number] 2.5mg Inhale 3 [facility] 2.5 mg /3 4-28 mL every 8 ity of mL (0.083 00:00: (eight) [place] %) 00 hours as Medical nebulizer needed for Bran ch solution Wheezing or Shortness of Breath. atorvastati 2022-0 Yes [id number] 20mg Take 1 [facility] n 20 mg 4-28 tablet by ity of tablet 00:00: mouth at [place] 00 bedtime. Medical Branch furosemide 3-0 Yes [id number] 40mg Take 1 [facility] 40 mg 4-28 tablet by ity of tablet 00:00: mouth [place] 00 every Medical morning Branch and evening. losartan 50 2022-0 Yes [id number] 25mg Take 0.5 [facility] mg tablet 4-28 tablets by ity of 00:00: mouth [place] 00 every day Medical at 1200 Branch (noon). ipratropium 3-0 Yes [id number] .5mg Inhale 2.5 [facility] 0.02 % 4-28 mL every 6 ity of nebulizer 00:00: (six) [place] solution 00 hours as Medical needed for Branch Wheezing or Shortness of Breath. albuterol 2022-0 Yes [id number] 2.5mg Inhale 3 [facility] 2.5 mg /3 4-28 mL every 8 ity of mL (0.083 00:00: (eight) [place] %) 00 hours as Medical nebulizer needed for Bran ch solution Wheezing or Shortness of Breath. atorvastati 2022-0 Yes [id number] 20mg Take 1 [facility] n 20 mg 4-28 tablet by ity of tablet 00:00: mouth at [place] 00 bedtime. Medical Branch furosemide 2022-0 Yes [id number] 40mg Take 1 [facility] 40 mg 4-28 tablet by ity of tablet 00:00: mouth [place] 00 every Medical morning Branch and evening. losartan 50 2022-0 Yes [id number] 25mg Take 0.5 [facility] mg tablet 4-28 tablets by ity of 00:00: mouth [place] 00 every day Medical at 1200 Branch (noon). ipratropium 2022-0 Yes [id number] .5mg Inhale 2.5 [facility] 0.02 % 4-28 mL every 6 ity of nebulizer 00:00: (six) [place] solution 00 hours as Medical needed for Branch Wheezing or Shortness of Breath. albuterol 2022-0 Yes [id number] 2.5mg Inhale 3 [facility] 2.5 mg /3 4-28 mL every 8 ity of mL (0.083 00:00: (eight) [place] %) 00 hours as Medical nebulizer needed for Bran ch solution Wheezing or Shortness of Breath. atorvastati 2022-0 Yes [id number] 20mg Take 1 [facility] n 20 mg 4-28 tablet by ity of tablet 00:00: mouth at [place] 00 bedtime. Medical Branch furosemide 2022-0 Yes [id number] 40mg Take 1 [facility] 40 mg 4-28 tablet by ity of tablet 00:00: mouth [place] 00 every Medical morning Branch and evening. losartan 50 2022-0 Yes [id number] 25mg Take 0.5 [facility] mg tablet 4-28 tablets by ity of 00:00: mouth [place] 00 every day Medical at 1200 Branch (noon). ipratropium 3-0 Yes [id number] .5mg Inhale 2.5 [facility] 0.02 % 4-28 mL every 6 ity of nebulizer 00:00: (six) [place] solution 00 hours as Medical needed for Branch Wheezing or Shortness of Breath. albuterol 2022-0 Yes [id number] 2.5mg Inhale 3 [facility] 2.5 mg /3 4-28 mL every 8 ity of mL (0.083 00:00: (eight) [place] %) 00 hours as Medical nebulizer needed for Bran ch solution Wheezing or Shortness of Breath. atorvastati 2022-0 Yes [id number] 20mg Take 1 [facility] n 20 mg 4-28 tablet by ity of tablet 00:00: mouth at [place] 00 bedtime. Medical Branch furosemide 2022-0 Yes [id number] 40mg Take 1 [facility] 40 mg 4-28 tablet by ity of tablet 00:00: mouth [place] 00 every Medical morning Branch and evening. losartan 50 2022-0 Yes [id number] 25mg Take 0.5 [facility] mg tablet 4-28 tablets by ity of 00:00: mouth [place] 00 every day Medical at 1200 Branch (noon). ipratropium 2022-0 Yes [id number] .5mg Inhale 2.5 [facility] 0.02 % 4-28 mL every 6 ity of nebulizer 00:00: (six) [place] solution 00 hours as Medical needed for Branch Wheezing or Shortness of Breath. albuterol 2022-0 Yes [id number] 2.5mg Inhale 3 [facility] 2.5 mg /3 4-28 mL every 8 ity of mL (0.083 00:00: (eight) [place] %) 00 hours as Medical nebulizer needed for Bran ch solution Wheezing or Shortness of Breath. atorvastati 2022-0 Yes [id number] 20mg Take 1 [facility] n 20 mg 4-28 tablet by ity of tablet 00:00: mouth at [place] 00 bedtime. Medical Branch furosemide 2022-0 Yes [id number] 40mg Take 1 [facility] 40 mg 4-28 tablet by ity of tablet 00:00: mouth [place] 00 every Medical morning Branch and evening. losartan 50 2022-0 Yes [id number] 25mg Take 0.5 [facility] mg tablet 4-28 tablets by ity of 00:00: mouth [place] 00 every day Medical at 1200 [place] (noon). ipratropium 2023-0 Yes [id number] .5mg Inhale 2.5 [facility] 0.02 % 4-28 mL every 6 ity of nebulizer 00:00: (six) [place] solution 00 hours as Medical needed for Branch Wheezing or Shortness of Breath. albuterol 3-0 Yes [id number] 2.5mg Inhale 3 [facility] 2.5 mg /3 4-28 mL every 8 ity of mL (0.083 00:00: (eight) [place] %) 00 hours as Medical nebulizer needed for Bran ch solution Wheezing or Shortness of Breath. atorvastati 2022-0 Yes [id number] 20mg Take 1 [facility] n 20 mg 4-28 tablet by ity of tablet 00:00: mouth at [place] 00 bedtime. Medical Branch losartan 50 2022-0 Yes [id number] 25mg Take 0.5 [facility] mg tablet 4-28 tablets by [facility] of 00:00: mouth [place] 00 every day Medical at [address] (noon). ipratropium 3-0 Yes [id number] .5mg Inhale 2.5 [facility] 0.02 % 4-28 mL every 6 [facility] nebulizer 00:00: (six) [place] solution 00 hours as Medical needed for Branch Wheezing or Shortness of Breath. albuterol 3-0 Yes [id number] 2.5mg Inhale 3 [facility] 2.5 mg /3 4-28 mL every 8 [facility] of mL (0.083 00:00: (eight) [place] %) 00 hours as Medical nebulizer needed for [facility] solution Wheezing or Shortness of Breath. atorvastati 3-0 Yes [id number] 20mg Take 1 [facility] n 20 mg 4-28 tablet by [facility] of tablet 00:00: mouth at [place] 00 bedtime. [facility] losartan 50 2022-0 Yes [id number] 25mg Take 0.5 [facility] mg tablet 4-28 tablets by [facility] of 00:00: mouth [place] 00 every day Medical at [address] (noon). ipratropium 2023-0 Yes [id number] .5mg Inhale 2.5 [facility] 0.02 % 4-28 mL every 6 [facility] of nebulizer 00:00: (six) [place] solution 00 hours as Medical needed for Branch Wheezing or Shortness of Breath. albuterol 3-0 Yes [id number] 2.5mg Inhale 3 [facility] 2.5 mg /3 4-28 mL every 8 [facility] of mL (0.083 00:00: (eight) [place] %) 00 hours as Medical nebulizer needed for [facility] solution Wheezing or Shortness of Breath. atorvastati 2022-0 Yes [id number] 20mg Take 1 [facility] n 20 mg 4-28 tablet by [facility] of tablet 00:00: mouth at [place] 00 bedtime. [facility] losartan 50 2022-0 Yes [id number] 25mg Take 0.5 [facility] mg tablet 4-28 tablets by [facility] of 00:00: mouth [place] 00 every day Medical at [address] (noon). ipratropium 3-0 Yes [id number] .5mg Inhale 2.5 [facility] 0.02 % 4-28 mL every 6 [facility] of nebulizer 00:00: (six) [place] solution 00 hours as Medical needed for Branch Wheezing or Shortness of Breath. albuterol 2022-0 Yes [id number] 2.5mg Inhale 3 [facility] 2.5 mg /3 4-28 mL every 8 [facility] mL (0.083 00:00: (eight) [place] %) 00 hours as Medical nebulizer needed for [facility] solution Wheezing or Shortness of Breath. atorvastati 2022-0 Yes [id number] 20mg Take 1 [facility] n 20 mg 4-28 tablet by [facility] of tablet 00:00: mouth at [place] 00 bedtime. [facility] losartan 50 2022-0 Yes [id number] 25mg Take 0.5 [facility] mg tablet 4-28 tablets by [facility] of 00:00: mouth [place] 00 every day Medical at [address] (noon). ipratropium 2023-0 Yes [id number] .5mg Inhale 2.5 [facility] 0.02 % 4-28 mL every 6 [facility] of nebulizer 00:00: (six) [place] solution 00 hours as Medical needed for Branch Wheezing or Shortness of Breath. albuterol 2023-0 Yes [id number] 2.5mg Inhale 3 [facility] 2.5 mg /3 4-28 mL every 8 [facility] mL (0.083 00:00: (eight) [place] %) 00 hours as Medical nebulizer needed for [facility] solution Wheezing or Shortness of Breath. atorvastati 3-0 Yes [id number] 20mg Take 1 [facility] n 20 mg 4-28 tablet by [facility] of tablet 00:00: mouth at [place] 00 bedtime. [facility] losartan 50 2022-0 Yes [id number] 25mg Take 0.5 [facility] mg tablet 4-28 tablets by [facility] of 00:00: mouth [place] 00 every day Medical at [address] (noon). ipratropium 3-0 Yes [id number] .5mg Inhale 2.5 [facility] 0.02 % 4-28 mL every 6 [facility] of nebulizer 00:00: (six) [place] solution 00 hours as Medical needed for Branch Wheezing or Shortness of Breath. albuterol 2023-0 Yes [id number] 2.5mg Inhale 3 [facility] 2.5 mg /3 4-28 mL every 8 [facility] mL (0.083 00:00: (eight) [place] %) 00 hours as Medical nebulizer needed for [facility] solution Wheezing or Shortness of Breath. atorvastati 2022-0 Yes [id number] 20mg Take 1 [facility] n 20 mg 4-28 tablet by [facility] of tablet 00:00: mouth at [place] 00 bedtime. [facility] losartan 50 2022-0 Yes [id number] 25mg Take 0.5 [facility] mg tablet 4-28 tablets by [facility] of 00:00: mouth [place] 00 every day Medical at [address] (noon). ipratropium 2023-0 Yes [id number] .5mg Inhale 2.5 [facility] 0.02 % 4-28 mL every 6 [facility] of nebulizer 00:00: (six) [place] solution 00 hours as Medical needed for Branch Wheezing or Shortness of Breath. albuterol 2023-0 Yes [id number] 2.5mg Inhale 3 [facility] 2.5 mg /3 4-28 mL every 8 [facility] of mL (0.083 00:00: (eight) [place] %) 00 hours as Medical nebulizer needed for [facility] solution Wheezing or Shortness of Breath. atorvastati 3-0 Yes [id number] 20mg Take 1 [facility] n 20 mg 4-28 tablet by [facility] of tablet 00:00: mouth at [place] 00 bedtime. [facility] losartan 50 2022-0 Yes [id number] 25mg Take 0.5 [facility] mg tablet 4-28 tablets by [facility] of 00:00: mouth [place] 00 every day Medical at [address] (noon). ipratropium 3-0 Yes [id number] .5mg Inhale 2.5 [facility] 0.02 % 4-28 mL every 6 [facility] of nebulizer 00:00: (six) [place] solution 00 hours as Medical needed for Branch Wheezing or Shortness of Breath. albuterol 2022-0 Yes [id number] 2.5mg Inhale 3 [facility] 2.5 mg /3 4-28 mL every 8 [facility] mL (0.083 00:00: (eight) [place] %) 00 hours as Medical nebulizer needed for [facility] solution Wheezing or Shortness of Breath. atorvastati 2022-0 Yes [id number] 20mg Take 1 [facility] n 20 mg 4-28 tablet by [facility] of tablet 00:00: mouth at [place] 00 bedtime. [facility] losartan 50 2022-0 Yes [id number] 25mg Take 0.5 [facility] mg tablet 4-28 tablets by [facility] of 00:00: mouth [place] 00 every day Medical at [address] (noon). ipratropium 3-0 Yes [id number] .5mg Inhale 2.5 [facility] 0.02 % 4-28 mL every 6 [facility] of nebulizer 00:00: (six) [place] solution 00 hours as Medical needed for Branch Wheezing or Shortness of Breath. albuterol 3-0 Yes [id number] 2.5mg Inhale 3 [facility] 2.5 mg /3 4-28 mL every 8 [facility] of mL (0.083 00:00: (eight) [place] %) 00 hours as Medical nebulizer needed for [facility] solution Wheezing or Shortness of Breath. atorvastati 3-0 Yes [id number] 20mg Take 1 [facility] n 20 mg 4-28 tablet by [facility] of tablet 00:00: mouth at [place] 00 bedtime. [facility] losartan 50 2022-0 Yes [id number] 25mg Take 0.5 [facility] mg tablet 4-28 tablets by [facility] of 00:00: mouth [place] 00 every day Medical at [address] (noon). ipratropium 2023-0 Yes [id number] .5mg Inhale 2.5 [facility] 0.02 % 4-28 mL every 6 [facility] of nebulizer 00:00: (six) [place] solution 00 hours as Medical needed for Branch Wheezing or Shortness of Breath. albuterol 2022-0 Yes [id number] 2.5mg Inhale 3 [facility] 2.5 mg /3 4-28 mL every 8 [facility] of mL (0.083 00:00: (eight) [place] %) 00 hours as Medical nebulizer needed for [facility] solution Wheezing or Shortness of Breath. atorvastati 2022-0 Yes [id number] 20mg Take 1 [facility] n 20 mg 4-28 tablet by [facility] of tablet 00:00: mouth at [place] 00 bedtime. [facility] losartan 50 2022-0 Yes [id number] 25mg Take 0.5 [facility] mg tablet 4-28 tablets by [facility] of 00:00: mouth [place] 00 every day Medical at [address] (noon). ipratropium 2022-0 Yes [id number] .5mg Inhale 2.5 [facility] 0.02 % 4-28 mL every 6 [facility] of nebulizer 00:00: (six) [place] solution 00 hours as Medical needed for Branch Wheezing or Shortness of Breath. albuterol 2022-0 Yes [id number] 2.5mg Inhale 3 [facility] 2.5 mg /3 4-28 mL every 8 [facility] of mL (0.083 00:00: (eight) [place] %) 00 hours as Medical nebulizer needed for [facility] solution Wheezing or Shortness of Breath. atorvastati 2022-0 Yes [id number] 20mg Take 1 [facility] n 20 mg 4-28 tablet by [facility] of tablet 00:00: mouth at [place] 00 bedtime. [facility] losartan 50 2022-0 Yes [id number] 25mg Take 0.5 [facility] mg tablet 4-28 tablets by [facility] of 00:00: mouth [place] 00 every day Medical at [address] (noon). ipratropium 2023-0 Yes [id number] .5mg Inhale 2.5 [facility] 0.02 % 4-28 mL every 6 [facility] of nebulizer 00:00: (six) [place] solution 00 hours as Medical needed for Branch Wheezing or Shortness of Breath. albuterol 2023-0 Yes [id number] 2.5mg Inhale 3 [facility] 2.5 mg /3 4-28 mL every 8 [facility] of mL (0.083 00:00: (eight) [place] %) 00 hours as Medical nebulizer needed for [facility] solution Wheezing or Shortness of Breath. atorvastati 2022-0 Yes [id number] 20mg Take 1 [facility] n 20 mg 4-28 tablet by [facility] of tablet 00:00: mouth at [place] 00 bedtime. [facility] losartan 50 2022-0 Yes [id number] 25mg Take 0.5 [facility] mg tablet 4-28 tablets by [facility] of 00:00: mouth [place] 00 every day Medical at [address] (noon). ipratropium 3-0 Yes [id number] .5mg Inhale 2.5 [facility] 0.02 % 4-28 mL every 6 [facility] of nebulizer 00:00: (six) [place] solution 00 hours as Medical needed for Branch Wheezing or Shortness of Breath. albuterol 3-0 Yes [id number] 2.5mg Inhale 3 [facility] 2.5 mg /3 4-28 mL every 8 [facility] mL (0.083 00:00: (eight) [place] %) 00 hours as Medical nebulizer needed for [facility] solution Wheezing or Shortness of Breath. atorvastati 2022-0 Yes [id number] 20mg Take 1 [facility] n 20 mg 4-28 tablet by [facility] of tablet 00:00: mouth at [place] 00 bedtime. [facility] losartan 50 2022-0 Yes [id number] 25mg Take 0.5 [facility] mg tablet 4-28 tablets by [facility] of 00:00: mouth [place] 00 every day Medical at [address] (noon). ipratropium 2023-0 Yes [id number] .5mg Inhale 2.5 [facility] 0.02 % 4-28 mL every 6 [facility] of nebulizer 00:00: (six) [place] solution 00 hours as Medical needed for Branch Wheezing or Shortness of Breath. albuterol 2023-0 Yes [id number] 2.5mg Inhale 3 [facility] 2.5 mg /3 4-28 mL every 8 [facility] of mL (0.083 00:00: (eight) [place] %) 00 hours as Medical nebulizer needed for [facility] solution Wheezing or Shortness of Breath. atorvastati 3-0 Yes [id number] 20mg Take 1 [facility] n 20 mg 4-28 tablet by [facility] of tablet 00:00: mouth at [place] 00 bedtime. [facility] losartan 50 2022-0 Yes [id number] 25mg Take 0.5 [facility] mg tablet 4-28 tablets by [facility] of 00:00: mouth [place] 00 every day Medical at [address] (noon). ipratropium 3-0 Yes [id number] .5mg Inhale 2.5 [facility] 0.02 % 4-28 mL every 6 [facility] of nebulizer 00:00: (six) [place] solution 00 hours as Medical needed for Branch Wheezing or Shortness of Breath. albuterol 2022-0 Yes [id number] 2.5mg Inhale 3 [facility] 2.5 mg /3 4-28 mL every 8 [facility] of mL (0.083 00:00: (eight) [place] %) 00 hours as Medical nebulizer needed for [facility] solution Wheezing or Shortness of Breath. atorvastati 2022-0 Yes [id number] 20mg Take 1 [facility] n 20 mg 4-28 tablet by [facility] of tablet 00:00: mouth at [place] 00 bedtime. [facility] losartan 50 2022-0 Yes [id number] 25mg Take 0.5 [facility] mg tablet 4-28 tablets by [facility] of 00:00: mouth [place] 00 every day Medical at [address] (noon). ipratropium 2023-0 Yes [id number] .5mg Inhale 2.5 [facility] 0.02 % 4-28 mL every 6 [facility] of nebulizer 00:00: (six) [place] solution 00 hours as Medical needed for Branch Wheezing or Shortness of Breath. albuterol 3-0 Yes [id number] 2.5mg Inhale 3 [facility] 2.5 mg /3 4-28 mL every 8 [facility] of mL (0.083 00:00: (eight) [place] %) 00 hours as Medical nebulizer needed for [facility] solution Wheezing or Shortness of Breath. atorvastati 3-0 Yes [id number] 20mg Take 1 [facility] n 20 mg 4-28 tablet by [facility] of tablet 00:00: mouth at [place] 00 bedtime. [facility] losartan 50 2022-0 Yes [id number] 25mg Take 0.5 [facility] mg tablet 4-28 tablets by [facility] of 00:00: mouth [place] 00 every day Medical at [address] (noon). ipratropium 2023-0 Yes [id number] .5mg Inhale 2.5 [facility] 0.02 % 4-28 mL every 6 it[facility] of nebulizer 00:00: (six) [place] solution 00 hours as Medical needed for Branch Wheezing or Shortness of Breath. albuterol 3-0 Yes [id number] 2.5mg Inhale 3 [facility] 2.5 mg /3 4-28 mL every 8 [facility] of mL (0.083 00:00: (eight) [place] %) 00 hours as Medical nebulizer needed for [facility] solution Wheezing or Shortness of Breath. atorvastati 2022-0 Yes [id number] 20mg Take 1 [facility] n 20 mg 4-28 tablet by [facility] of tablet 00:00: mouth at [place] 00 bedtime. [facility] losartan 50 2022-0 Yes [id number] 25mg Take 0.5 [facility] mg tablet 4-28 tablets by it[facility] of 00:00: mouth [place] 00 every day Medical at [address] (noon). ipratropium 3-0 Yes [id number] .5mg Inhale 2.5 [facility] 0.02 % 4-28 mL every 6 ity of nebulizer 00:00: (six) [place] solution 00 hours as Medical needed for Branch Wheezing or Shortness of Breath. albuterol 3-0 Yes [id number] 2.5mg Inhale 3 [facility] 2.5 mg /3 4-28 mL every 8 [facility] of mL (0.083 00:00: (eight) [place] %) 00 hours as Medical nebulizer needed for [facility] solution Wheezing or Shortness of Breath. atorvastati 2022-0 Yes [id number] 20mg Take 1 [facility] n 20 mg 4-28 tablet by [facility] of tablet 00:00: mouth at [place] 00 bedtime. [facility] losartan 50 2022-0 Yes [id number] 25mg Take 0.5 [facility] mg tablet 4-28 tablets by it[facility] of 00:00: mouth [place] 00 every day Medical at [address] (noon). ipratropium 2023-0 Yes [id number] .5mg Inhale 2.5 [facility] 0.02 % 4-28 mL every 6 ity of nebulizer 00:00: (six) [place] solution 00 hours as Medical needed for Branch Wheezing or Shortness of Breath. albuterol 2023-0 Yes [id number] 2.5mg Inhale 3 [facility] 2.5 mg /3 4-28 mL every 8 [facility] of mL (0.083 00:00: (eight) [place] %) 00 hours as Medical nebulizer needed for [facility] solution Wheezing or Shortness of Breath. atorvastati 2022-0 Yes [id number] 20mg Take 1 [facility] n 20 mg 4-28 tablet by [facility] of tablet 00:00: mouth at [place] 00 bedtime. [facility] losartan 50 2022-0 Yes [id number] 25mg Take 0.5 [facility] mg tablet 4-28 tablets by it[facility] of 00:00: mouth [place] 00 every day Medical at [address] (noon). ipratropium 3-0 Yes [id number] .5mg Inhale 2.5 [facility] 0.02 % 4-28 mL every 6 it[facility] of nebulizer 00:00: (six) [place] solution 00 hours as Medical needed for Branch Wheezing or Shortness of Breath. albuterol 2022-0 Yes [id number] 2.5mg Inhale 3 [facility] 2.5 mg /3 4-28 mL every 8 [facility] of mL (0.083 00:00: (eight) [place] %) 00 hours as Medical nebulizer needed for [facility] solution Wheezing or Shortness of Breath. atorvastati 2022-0 Yes [id number] 20mg Take 1 [facility] n 20 mg 4-28 tablet by it[facility] of tablet 00:00: mouth at [place] 00 bedtime. [facility] losartan 50 2022-0 Yes [id number] 25mg Take 0.5 [facility] mg tablet 4-28 tablets by ity of 00:00: mouth [place] 00 every day Medical at [address] (noon). ipratropium 3-0 Yes [id number] .5mg Inhale 2.5 [facility] 0.02 % 4-28 mL every 6 ity of nebulizer 00:00: (six) [place] solution 00 hours as Medical needed for Branch Wheezing or Shortness of Breath. albuterol 2023-0 Yes [id number] 2.5mg Inhale 3 [facility] 2.5 mg /3 4-28 mL every 8 ity of mL (0.083 00:00: (eight) [place] %) 00 hours as Medical nebulizer needed for Bran [facility] solution Wheezing or Shortness of Breath. atorvastati 2022-0 Yes [id number] 20mg Take 1 [facility] n 20 mg 4-28 tablet by it[facility] of tablet 00:00: mouth at [place] 00 bedtime. [facility] losartan 50 2022-0 Yes [id number] 25mg Take 0.5 [facility] mg tablet 4-28 tablets by ity of 00:00: mouth [place] 00 every day Medical at [address] [place] [address] (noon). ipratropium 3-0 Yes [id number] .5mg Inhale 2.5 [facility] 0.02 % 4-28 mL every 6 ity of nebulizer 00:00: (six) [place] solution 00 hours as Medical needed for Branch Wheezing or Shortness of Breath. albuterol 2022-0 Yes [id number] 2.5mg Inhale 3 [facility] 2.5 mg /3 4-28 mL every 8 ity of mL (0.083 00:00: (eight) [place] %) 00 hours as Medical nebulizer needed for [facility] solution Wheezing or Shortness of Breath. atorvastati 2022-0 Yes [id number] 20mg Take 1 [facility] n 20 mg 4-28 tablet by ity of tablet 00:00: mouth at [place] 00 bedtime. [facility] losartan 50 2022-0 Yes [id number] 25mg Take 0.5 [facility] mg tablet 4-28 tablets by ity of 00:00: mouth [place] 00 every day Medical at [address] [place] [address] (noon). atorvastati 2022-0 Yes [id number] 20mg Take 1 [facility] n 20 mg 4-28 tablet by ity of tablet 00:00: mouth at [place] 00 bedtime. [facility] losartan 50 2022-0 Yes [id number] 25mg Take 0.5 [facility] mg tablet 4-28 tablets by ity of 00:00: mouth [place] 00 every day Medical at [address] [place] [address] (noon). atorvastati 2022-0 Yes [id number] 20mg Take 1 [facility] n 20 mg 4-28 tablet by ity of tablet 00:00: mouth at [place] 00 bedtime. [facility] losartan 50 2022-0 Yes [id number] 25mg Take 0.5 [facility] mg tablet 4-28 tablets by ity of 00:00: mouth [place] 00 every day Medical at [address] [place] [address] (noon). atorvastati 2022-0 Yes [id number] 20mg Take 1 [facility] n 20 mg 4-28 tablet by ity of tablet 00:00: mouth at [place] 00 bedtime. [facility] losartan 50 2022-0 Yes [id number] 25mg Take 0.5 [facility] mg tablet 4-28 tablets by ity of 00:00: mouth [place] 00 every day Medical at [address] [place] [address] (noon). atorvastati 2022-0 Yes [id number] 20mg Take 1 [facility] n 20 mg 4-28 tablet by ity of tablet 00:00: mouth at [place] 00 bedtime. [facility] losartan 50 2022-0 Yes [id number] 25mg Take 0.5 [facility] mg tablet 4-28 tablets by ity of 00:00: mouth [place] 00 every day Medical at [address] [place] [address] (noon). atorvastati 2022-0 Yes [id number] 20mg Take 1 [facility] n 20 mg 4-28 tablet by ity of tablet 00:00: mouth at [place] 00 bedtime. [facility] losartan 50 2022-0 Yes [id number] 25mg Take 0.5 [facility] mg tablet 4-28 tablets by ity of 00:00: mouth [place] 00 every day Medical at [address] [place] [address] (noon). atorvastati 2022-0 Yes [id number] 20mg Take 1 [facility] n 20 mg 4-28 tablet by ity of tablet 00:00: mouth at [place] 00 bedtime. [facility] losartan 50 2022-0 Yes [id number] 25mg Take 0.5 [facility] mg tablet 4-28 tablets by ity of 00:00: mouth [place] 00 every day Medical at [address] [place] [address] (noon). atorvastati 2022-0 Yes [id number] 20mg Take 1 [facility] n 20 mg 4-28 tablet by ity of tablet 00:00: mouth at [place] 00 bedtime. Medical [facility] losartan 50 2022-0 Yes [id number] 25mg Take 0.5 [facility] mg tablet 4-28 tablets by ity of 00:00: mouth [place] 00 every day Medical at [address] [place] [address] (noon). atorvastati 2022-0 Yes [id number] 20mg Take 1 [facility] n 20 mg 4-28 tablet by ity of tablet 00:00: mouth at [place] 00 bedtime. [facility] losartan 50 2022-0 Yes [id number] 25mg Take 0.5 [facility] mg tablet 4-28 tablets by ity of 00:00: mouth [place] 00 every day Medical at [address] [place] [address] (noon). atorvastati 2022-0 Yes [id number] 20mg Take 1 [facility] n 20 mg 4-28 tablet by ity of tablet 00:00: mouth at [place] 00 bedtime. Medical [facility] losartan 50 2022-0 Yes [id number] 25mg Take 0.5 [facility] mg tablet 4-28 tablets by ity of 00:00: mouth [place] 00 every day Medical at [address] [place] [address] (noon). atorvastati 2022-0 Yes [id number] 20mg Take 1 [facility] n 20 mg 4-28 tablet by ity of tablet 00:00: mouth at [place] 00 bedtime. [facility] losartan 50 2022-0 Yes [id number] 25mg Take 0.5 [facility] mg tablet 4-28 tablets by ity of 00:00: mouth [place] 00 every day Medical at [address] [place] [address] (noon). atorvastati 2022-0 Yes [id number] 20mg Take 1 [facility] n 20 mg 4-28 tablet by ity of tablet 00:00: mouth at [place] 00 bedtime. [facility] losartan 50 2022-0 Yes [id number] 25mg Take 0.5 [facility] mg tablet 4-28 tablets by ity of 00:00: mouth [place] 00 every day Medical at [address] [place] [address] (noon). atorvastati 2022-0 Yes [id number] 20mg Take 1 [facility] n 20 mg 4-28 tablet by ity of tablet 00:00: mouth at [place] 00 bedtime. [facility] losartan 50 2022-0 Yes [id number] 25mg Take 0.5 [facility] mg tablet 4-28 tablets by ity of 00:00: mouth [place] 00 every day Medical at [address] [place] [address] (noon). atorvastati 2022-0 Yes [id number] 20mg Take 1 [facility] n 20 mg 4-28 tablet by ity of tablet 00:00: mouth at [place] 00 bedtime. [facility] losartan 50 2022-0 Yes [id number] 25mg Take 0.5 [facility] mg tablet 4-28 tablets by ity of 00:00: mouth [place] 00 every day Medical at [address] [place] [address] (noon). atorvastati 2022-0 Yes [id number] 20mg Take 1 [facility] n 20 mg 4-28 tablet by ity of tablet 00:00: mouth at [place] 00 bedtime. [facility] losartan 50 2022-0 Yes [id number] 25mg Take 0.5 [facility] mg tablet 4-28 tablets by ity of 00:00: mouth [place] 00 every day Medical at [address] [place] [address] (noon). atorvastati 2022-0 Yes [id number] 20mg Take 1 [facility] n 20 mg 4-28 tablet by ity of tablet 00:00: mouth at [place] 00 bedtime. [facility] losartan 50 2022-0 Yes [id number] 25mg Take 0.5 [facility] mg tablet 4-28 tablets by ity of 00:00: mouth [place] 00 every day Medical at [address] [place] [address] (noon). atorvastati 2022-0 Yes [id number] 20mg Take 1 [facility] n 20 mg 4-28 tablet by ity of tablet 00:00: mouth at [place] 00 bedtime. [facility] losartan 50 2022-0 Yes [id number] 25mg Take 0.5 [facility] mg tablet 4-28 tablets by ity of 00:00: mouth [place] 00 every day Medical at [address] [place] [address] (noon). atorvastati 2022-0 Yes [id number] 20mg Take 1 [facility] n 20 mg 4-28 tablet by ity of tablet 00:00: mouth at [place] 00 bedtime. [facility] losartan 50 2022-0 Yes [id number] 25mg Take 0.5 [facility] mg tablet 4-28 tablets by ity of 00:00: mouth [place] 00 every day Medical at [address] [place] [address] (noon). atorvastati 2022-0 Yes [id number] 20mg Take 1 [facility] n 20 mg 4-28 tablet by ity of tablet 00:00: mouth at [place] 00 bedtime. [facility] losartan 50 2022-0 Yes [id number] 25mg Take 0.5 [facility] mg tablet 4-28 tablets by ity of 00:00: mouth [place] 00 every day Medical at [address] [place] [address] (noon). atorvastati 2022-0 Yes [id number] 20mg Take 1 [facility] n 20 mg 4-28 tablet by ity of tablet 00:00: mouth at [place] 00 bedtime. [facility] losartan 50 2022-0 Yes [id number] 25mg Take 0.5 [facility] mg tablet 4-28 tablets by ity of 00:00: mouth [place] 00 every day Medical at [address] [place] [address] (noon). atorvastati 2022-0 Yes [id number] 20mg Take 1 [facility] n 20 mg 4-28 tablet by ity of tablet 00:00: mouth at [place] 00 bedtime. [facility] losartan 50 2022-0 Yes [id number] 25mg Take 0.5 [facility] mg tablet 4-28 tablets by ity of 00:00: mouth [place] 00 every day Medical at [address] [place] [address] (noon). atorvastati 2022-0 Yes [id number] 20mg Take 1 [facility] n 20 mg 4-28 tablet by ity of tablet 00:00: mouth at [place] 00 bedtime. [facility] losartan 50 2022-0 Yes [id number] 25mg Take 0.5 [facility] mg tablet 4-28 tablets by ity of 00:00: mouth [place] 00 every day Medical at [address] [place] [address] (noon). atorvastati 2022-0 Yes [id number] 20mg Take 1 [facility] n 20 mg 4-28 tablet by ity of tablet 00:00: mouth at [place] 00 bedtime. [facility] losartan 50 2022-0 Yes [id number] 25mg Take 0.5 [facility] mg tablet 4-28 tablets by ity of 00:00: mouth [place] 00 every day Medical at [address] [place] [address] (noon). losartan 50 2022-0 Yes [id number] 25mg Take 0.5 [facility] mg tablet 4-28 tablets by ity of 00:00: mouth [place] 00 every day Medical at [address] [place] [address] (noon). losartan 50 2022-0 Yes [id number] 25mg Take 0.5 [facility] mg tablet 4-28 tablets by ity of 00:00: mouth [place] 00 every day Medical at [address] [place] [address] (noon). losartan 50 2022-0 Yes [id number] 25mg Take 0.5 [facility] mg tablet 4-28 tablets by ity of 00:00: mouth [place] 00 every day Medical at [address] [place] [address] (noon). losartan 50 2022-0 Yes [id number] 25mg Take 0.5 [facility] mg tablet 4-28 tablets by ity of 00:00: mouth [place] 00 every day Medical at [address] [place] [address] (noon). losartan 50 2022-0 Yes [id number] 25mg Take 0.5 [facility] mg tablet 4-28 tablets by ity of 00:00: mouth [place] 00 every day Medical at [address] [place] [address] (noon). losartan 50 2022-0 Yes [id number] 25mg Take 0.5 [facility] mg tablet 4-28 tablets by ity of 00:00: mouth [place] 00 every day Medical at [address] [place] [address] (noon). losartan 50 2022-0 Yes [id number] 25mg Take 0.5 [facility] mg tablet 4-28 tablets by ity of 00:00: mouth [place] 00 every day Medical at [address] [place] [address] (noon). losartan 50 2022-0 Yes [id number] 25mg Take 0.5 [facility] mg tablet - tablets by ity of 00:00: mouth [place] 00 every day Medical at [address] [place] [address] (noon). losartan 50 2022-0 Yes [id number] 25mg Take 0.5 [facility] mg tablet - tablets by ity of 00:00: mouth [place] 00 every day Medical at [address] [place] [address] (noon). losartan 50 2022-0 3- No [id number] 25mg Take 0.5 [facility] mg tablet -10 12- tablets by ity of 00:00: 00:00 mouth [place] 00 :00 every day Medical at [address] [place] [address] (noon). losartan 50 2022-0 2022- No [id number] 25mg Take 0.5 [facility] mg tablet -10 12- tablets by ity of 00:00: 00:00 mouth [place] 00 :00 every day Medical at [address] [place] [address] (noon). atorvastati 2022- No [id number] 20mg Take 1 [facility] n 20 mg -10 11- tablet by [facility] of tablet 00:00: 00:00 mouth at [place] 00 :00 bedtime. [facility] atorvastati 2022-0 2022- No [id number] 20mg Take 1 [facility] n 20 mg 4-10 11- tablet by [facility]y of tablet 00:00: 00:00 mouth at [place] 00 :00 bedtime. [facility] ipratropium 2022- No [id number] .5mg Inhale 2.5 [facility] 0.02 % 06-10 06-27 mL every 6 ity of nebulizer 00:00: 00:00 (six) [place] solution 00 :00 hours as Medical needed for Branch Wheezing or Shortness of Breath. albuterol 2022-2022- No [id number] 2.5mg Inhale 3 [facility] 2.5 mg /3 06-10 06-27 mL every 8 ity of mL (0.083 00:00[place] Medical nebulizer needed for Bran ch solution Wheezing or Shortness of Breath. ipratropium 2022- No [id number] .5mg Inhale 2.5 [facility] 0.02 % 4-28 06-27 mL every 6 ity of nebulizer 00:00: 00:00 (six) [place] solution 00 :00 hours as Medical needed for Branch Wheezing or Shortness of Breath. albuterol 2022-0 3- No [id number] 2.5mg Inhale 3 [facility] 2.5 mg /3 4-28 06-27 mL every 8 ity of mL (0.083 00:00[place] :[place] hours as Medical nebulizer needed for Bran ch solution Wheezing or Shortness of Breath. ipratropium 3-0 2023- No [id number] .5mg Inhale 2.5 [facility] 0.02 % 4-28 06-27 mL every 6 ity of nebulizer 00:00: 00:00 (six) [place] solution 00 :00 hours as Medical needed for Branch Wheezing or Shortness of Breath. albuterol 2022-0 3- No [id number] 2.5mg Inhale 3 [facility] 2.5 mg /3 4-28 06-27 mL every 8 ity of mL (0.083 00:00: [place] :00 hours as Medical nebulizer needed for Bran ch solution Wheezing or Shortness of Breath. furosemide 2022-0 2022- No [id number] 40mg Take 1 [facility] 40 mg 4- 05-09 tablet by ity of tablet 00:00: 00:00 mouth [place] 00 :00 every Medical morning Branch and evening. furosemide 2023-0 Yes 40mg Take 1 [facility] 40 mg 4-27 tablet by ity of tablet 00:00: mouth [place] 00 every Medical morning Branch and evening. furosemide 2023-0 Yes 40mg Take 1 [facility] 40 mg 4-27 tablet by ity of tablet 00:00: mouth [place] 00 every Medical morning Branch and evening. furosemide 3-0 3- No 40mg Take 1 [facility] ers [...] 40mg Take 1 [facility] ers 40 mg 427 -28 tablet by ity of tablet 00:00: 00:00 mouth [place] 00 :00 every Medical morning Branch and evening. spironolact 2022-0 3- No 12.5mg QD Take 0.[address] [facility] 4-20 05-20 tablets [facility] (ALDACTONE) 00:00: 23:59 (12.5 mg M edical 25 MG 00 :00 total) by Center tablet mouth in the morning for 30 days. spironolact 2022-0 3- No 12.5mg QD Take 0.5 [facility] [...] the morning for 30 days. spironolact 2022-0 3- No 12.5mg QD Take 0.[address] [facility] 4-20 05-20 [facility] (ALDACTONE) 00:00: 23:59 (12.5 mg M edical 25 MG 00 :00 total) by Center tablet mouth in the morning for 30 days. spironolact 2022-0 3- No 12.5mg QD Take 0.[address] [facility] 4-20 05-20 [facility] (ALDACTONE) 00:00: 23:59 (12.5 mg M edical 25 MG 00 :00 total) by Center tablet mouth in the morning for 30 days. carvediloL 2022-0 2022- No 6.25mg Q.5D Take [address] [facility] [address] [facility] (COREG) 4-01 07-19 [facility] 6.25 MG 00:00: 23:59 (6.25 mg Medic al tablet 00 :00 total) by Center mouth in the morning and 1 tablet (6.25 mg total) before bedtime. Do all this for 30 days. furosemide 2022-0 2022- No 40mg Q.5D Take [address] [facility] (LASIX) 40 -01 07-19 tablet (40 Susan kes MG tablet 00:00: 23:59 mg total) Me dical 00 :00 by mouth Center in the morning and 1 tablet (40 mg total) before bedtime. Do all this for 30 days. ipratropium 2022-2022- No 3mL Q.5D Take [address] [facility] -albuteroL 06-01 by [facility] ([employer]) 00:00: 23:59 nebulizati M edical 0.5 mg-3 [...] [address] [facility] -albuteroL 06-01-19 by [facility] (DUO-Jimdo) 00:00: 23:59 nebulizati M edical 0.5 mg-3 00 :00 on in the Center mg(2.5 mg morning base)/3 mL and 3 mLs nebulizer before solution bedtime. Do all this for 30 days. carvediloL 2022-0 3- No 6.25mg Q.5D Take [address] [facility] [address] [facility] (COREG) -01 07-19 [facility] 6.25 MG 00:00: 23:59 (6.25 mg Medic al tablet 00 :00 total) by Center mouth in the morning and 1 tablet (6.25 mg total) before bedtime. Do all this for 30 days. furosemide 2022-0 2022- No 40mg Q.5D Take [address] [facility] (LASIX) 40 -01 07-19 tablet (40 Susan kes MG tablet 00:00: 23:59 mg total) Me dical 00 :00 by mouth Center in the morning and 1 tablet (40 mg total) before bedtime. Do all this for 30 days. ipratropium 2022-0 2022- No 3mL Q.5D Take [address] [facility] -albuteroL 06-0119 by [facility] ([employer]) 00:00: 23:59 nebulizati M edical 0.5 mg-3 [...] Take [address] [facility] (LASIX) 40 -01 07-19 tablet (40 Susan kes MG tablet 00:00: 23:59 mg total) Me dical 00 :00 by mouth Center in the morning and 1 tablet (40 mg total) before bedtime. Do all this for 30 days. ipratropium 2022-0 2022- No 3mL Q.5D Take [address] [facility] -albuteroL 06-01-19 by [facility] (DUO-NEB) 00:00: 23:59 nebulizati M edical 0.5 mg-3 00 :00 on in the Center mg(2.5 mg morning base)/3 mL and 3 mLs nebulizer before solution bedtime. Do all this for 30 days. carvediloL 3-0 3- No 6.25mg Q.5D Take [address] [facility] [address] [facility] (COREG) 4-01 07-19 [facility] 6.25 MG 00:00: 23:59 (6.25 mg Medic al tablet 00 :00 total) by Center mouth in the morning and 1 tablet (6.25 mg total) before bedtime. Do all this for 30 days. furosemide 2022-0 2022- No 40mg Q.5D Take [address] [facility] (LASIX) 40 -01 07-19 tablet (40 Susan kes MG tablet 00:00: 23:59 mg total) Me dical 00 :00 by mouth Center in the morning and 1 tablet (40 mg total) before bedtime. Do all this for 30 days. ipratropium 2022-0 2022- No 3mL Q.5D Take [address] [facility] -albuteroL 06-0119 by [facility] ([employer]) 00:00: 23:59 nebulizati M edical 0.5 mg-3 [...] Take [address] [facility] (LASIX) 40 -01 07-19 tablet (40 Susan kes MG tablet 00:00: 23:59 mg total) Me dical 00 :00 by mouth Center in the morning and 1 tablet (40 mg total) before bedtime. Do all this for 30 days. ipratropium 2022-0 3- No 3mL Q.5D Take [address] [facility] -albuteroL 06-01-19 by [facility] (DUO-NEB) 00:00: 23:59 nebulizati M edical 0.5 mg-3 00 :00 on in the Center mg(2.5 mg morning base)/3 mL and 3 mLs nebulizer before solution bedtime. Do all this for 30 days. benzonatate 2022-0 3- No 200mg Q.[id number] Take [address] [facility] (TESSALON) 06-01- [id number] [facility] 100 MG 00:00: 23:59 3D (200 mg Medical capsule 00 :00 total) by Center mouth in the morning and 2 capsules (200 mg total) at noon and 2 capsules (200 mg total) in the evening. Do all this for 10 days. benzonatate 2022-0 2023- No 200mg Q.[id number] Take [address] [facility] (TESSALON) 06-01- [id number] [facility] 100 MG 00:00: 23:59 3D (200 mg Medical capsule 00 :00 total) by Center mouth in the morning and 2 capsules (200 mg total) at noon and 2 capsules (200 mg total) in the evening. Do all this for 10 days. benzonatate 2022-0 2022- No 200mg Q.[id number] Take [address] [facility] (TESSALON) 06-01- [id number] [facility] 100 MG 00:00: 23:59 3D (200 mg Medical capsule 00 :00 total) by Center mouth in the morning and 2 capsules (200 mg total) at noon and 2 capsules (200 mg total) in the evening. Do all this for 10 days. benzonatate 3-0 3- No 200mg Q.[id number] Take [address] [facility] (TESSALON) 06-01- [id number] [facility] 100 MG 00:00: 23:59 3D (200 mg Medical capsule 00 :00 total) by Center mouth in the morning and 2 capsules (200 mg total) at noon and 2 capsules (200 mg total) in the evening. Do all this for 10 days. benzonatate 3-0 2023- No 200mg Q.[id number] Take [address] [facility] (TESSALON) 06-01- [id number] [facility] 100 MG 00:00: 23:59 3D (200 mg Medical capsule 00 :00 total) by Center mouth in the morning and 2 capsules (200 mg total) at noon and 2 capsules (200 mg total) in the evening. Do all this for 10 days. benzonatate 3-0 202- No 200mg Q.[id number] Take [address] [facility] (TESSALON) 4-19 04-29 [id number] [facility] 100 MG 00:00: 23:59 3D [...] [place] 00 every day Medical at [address] (noon). losartan 50 2023-0 Yes 25mg Take 0.5 [facility] mg tablet 4-12 tablets by ity of 00:00: mouth [place] 00 every day Medical at [address] (noon). losartan 50 2023-0 Yes 25mg Take 0.5 [facility] mg tablet 4-12 tablets by ity of 00:00: mouth [place] 00 every day Medical at [address] (noon). losartan 50 2023-0 Yes 25mg Take 0.5 [facility] mg tablet 4-12 tablets by ity of 00:00: mouth [place] 00 every day Medical at [address] [place] [address] (noon). losartan 50 2023-0 Yes 25mg Take 0.5 [facility] mg tablet 4-12 tablets by ity of 00:00: mouth [place] 00 every day Medical at [address] (noon). losartan 50 2023-0 Yes 25mg Take 0.5 [facility] mg tablet 4-12 tablets by ity of 00:00: mouth [place] 00 every day Medical at [address] (noon). losartan 50 2023-0 Yes 25mg Take 0.5 [facility] mg tablet 4-12 tablets by ity of 00:00: mouth [place] 00 every day Medical at [address] (noon). losartan 50 2023-0 Yes 25mg Take 0.5 [facility] mg tablet 4-12 tablets by ity of 00:00: mouth [place] 00 every day Medical at [address] (noon). losartan 50 2023-0 Yes 25mg Take 0.5 [facility] mg tablet 4-12 tablets by ity of 00:00: mouth [place] 00 every day Medical at [address] [place] [address] (noon). losartan 50 2022-0 Yes 25mg Take 0.5 [facility] mg tablet 4-12 tablets by ity of 00:00: mouth [place] 00 every day Medical at [address] [place] [address] (noon). losartan 50 2022-0 2023- No 25mg Take 0.5 [facility] mg tablet 4-12 -28 tablets by ity of 00:00: 00:00 mouth [place] 00 :00 every day Medical at [address] [place] [address] (noon). losartan 50 2022-0 2023- No 25mg Take 0.5 [facility] mg tablet 4-01 16-28 tablets by ity of 00:00: 00:00 mouth [place] 00 :00 every day Medical at [address] [place] [address] (noon). losartan 50 2022-0 2023- No 25mg Take 0.5 [facility] mg tablet 4-01 16-28 tablets by ity of 00:00: 00:00 mouth [place] 00 :00 every day Medical at [address] [place] [address] (noon). losartan 50 2022-0 2023- No 50mg [...] :00 daily. Medical Branch furosemide 2022-0 Yes [id number] 40mg Take 1 [facility] 40 mg 4-04 tablet by ity of tablet 00:00: mouth [place] 00 daily. Medical Branch terbinafine 2022-0 Yes [id number] 250mg Take 1 [facility] HCL 250 mg 4-04 tablet by ity of tablet 00:00: mouth [place] 00 daily. Medical Branch benzonatate 2022-0 Yes [id number] 200mg Take 1 [facility] 200 mg 4-04 capsule by ity of capsule 00:00: mouth 3 (three) Medical times Branch daily as needed for Cough. furosemide 2022-0 Yes [id number] 40mg Take 1 [facility] 40 mg 4-04 tablet by ity of tablet 00:00: mouth [place] 00 daily. Medical Branch terbinafine 2022-0 Yes [id number] 250mg Take 1 [facility] HCL 250 mg 4-04 tablet by ity of tablet 00:00: mouth [place] 00 daily. Medical Branch benzonatate 2022-0 Yes [id number] 200mg Take 1 [facility] 200 mg 4-04 capsule by ity of capsule 00:00: mouth 3 (three) Medical times Branch daily as needed for Cough. furosemide 2022-0 Yes [id number] 40mg Take 1 [facility] 40 mg 4-04 tablet by ity of tablet 00:00: mouth [place] 00 daily. Medical Branch terbinafine 2022-0 Yes [id number] 250mg Take 1 [facility] HCL 250 mg 4-04 tablet by ity of tablet 00:00: mouth [place] 00 daily. Medical Branch benzonatate 2022-0 Yes [id number] 200mg Take 1 [facility] 200 mg 4-04 capsule by ity of capsule 00:00: mouth 3 (three) Medical times Branch daily as needed for Cough. furosemide 2022-0 Yes [id number] 40mg Take 1 [facility] 40 mg 4-04 tablet by ity of tablet 00:00: mouth [place] 00 daily. Medical Branch terbinafine 2022-0 Yes [id number] 250mg Take 1 [facility] HCL 250 mg 4-04 tablet by ity of tablet 00:00: mouth [place] 00 daily. Medical Branch benzonatate 2022-0 Yes [id number] 200mg Take 1 [facility] 200 mg 4-04 capsule by ity of capsule 00:00: mouth 3 (three) Medical times Branch daily as needed for Cough. furosemide 2022-0 Yes [id number] 40mg Take 1 [facility] 40 mg 4-04 tablet by ity of tablet 00:00: mouth [place] 00 daily. Medical Branch terbinafine 2022-0 Yes [id number] 250mg Take 1 [facility] HCL 250 mg 4-04 tablet by ity of tablet 00:00: mouth [place] 00 daily. Medical Branch benzonatate 2022-0 Yes [id number] 200mg Take 1 [facility] 200 mg 4-04 capsule by ity of capsule 00:00: mouth 3 (three) Medical times Branch daily as needed for Cough. furosemide 2022-0 Yes [id number] 40mg Take 1 [facility] 40 mg 4-04 tablet by ity of tablet 00:00: mouth [place] 00 daily. Medical Branch terbinafine 2022-0 Yes [id number] 250mg Take 1 [facility] HCL 250 mg 4-04 tablet by ity of tablet 00:00: mouth [place] 00 daily. Medical Branch benzonatate 2022-0 Yes [id number] 200mg Take 1 [facility] 200 mg 4-04 capsule by ity of capsule 00:00: mouth 3 (three) Medical times Branch daily as needed for Cough. furosemide 2022-0 Yes [id number] 40mg Take 1 [facility] 40 mg 4-04 tablet by ity of tablet 00:00: mouth [place] 00 daily. Medical Branch terbinafine 2022-0 Yes [id number] 250mg Take 1 [facility] HCL 250 mg 4-04 tablet by ity of tablet 00:00: mouth [place] 00 daily. Medical Branch benzonatate 2022-0 Yes [id number] 200mg Take 1 [facility] 200 mg 4-04 capsule by ity of capsule 00:00: mouth 3 (three) Medical times [place] daily as needed for Cough. furosemide 2022-0 Yes [id number] 40mg Take 1 [facility] 40 mg 4-04 tablet by ity of tablet 00:00: mouth [place] 00 daily. Medical Branch terbinafine 2022-0 Yes [id number] 250mg Take 1 [facility] HCL 250 mg 4-04 tablet by ity of tablet 00:00: mouth [place] 00 daily. Medical Branch benzonatate 2022-0 Yes [id number] 200mg Take 1 [facility] 200 mg 4-04 capsule by ity of capsule 00:00: mouth 3 (three) Medical times [place] daily as needed for Cough. furosemide 2022-0 Yes [id number] 40mg Take 1 [facility] 40 mg 4-04 tablet by ity of tablet 00:00: mouth [place] 00 daily. Medical Branch terbinafine 2022-0 Yes [id number] 250mg Take 1 [facility] HCL 250 mg 4-04 tablet by ity of tablet 00:00: mouth [place] 00 daily. Medical Branch benzonatate 2022-0 Yes [id number] 200mg Take 1 [facility] 200 mg 4-04 capsule by ity of capsule 00:00: mouth 3 (three) Medical times Branch daily as needed for Cough. furosemide 2022-0 Yes [id number] 40mg Take 1 [facility] 40 mg 4-04 tablet by ity of tablet 00:00: mouth [place] 00 daily. Medical Branch terbinafine 2022-0 Yes [id number] 250mg Take 1 [facility] HCL 250 mg 4-04 tablet by ity of tablet 00:00: mouth [place] 00 daily. Medical Branch benzonatate 2022-0 Yes [id number] 200mg Take 1 [facility] 200 mg 4-04 capsule by ity of capsule 00:00: mouth 3 (three) Medical times Branch daily as needed for Cough. terbinafine 2022-0 Yes [id number] 250mg Take 1 [facility] HCL 250 mg 4-04 tablet by ity of tablet 00:00: mouth [place] 00 daily. Medical Branch benzonatate 2022-0 Yes [id number] 200mg Take 1 [facility] 200 mg 4-04 capsule by ity of capsule 00:00: mouth (three) Medical times Branch daily as needed for Cough. terbinafine 2022-0 Yes [id number] 250mg Take 1 [facility] HCL 250 mg 4-04 tablet by ity of tablet 00:00: mouth [place] 00 daily. Medical Branch benzonatate 2022-0 Yes [id number] 200mg Take 1 [facility] 200 mg 4-04 capsule by ity of capsule 00:00: mouth 3 (three) Medical times Branch daily as needed for Cough. terbinafine 2022-0 Yes [id number] 250mg Take 1 [facility] HCL 250 mg 4-04 tablet by ity of tablet 00:00: mouth [place] 00 daily. Medical Branch benzonatate 2022-0 Yes [id number] 200mg Take 1 [facility] 200 mg 4-04 capsule by ity of capsule 00:00: mouth 3 (three) Medical times Branch daily as needed for Cough. terbinafine 2022-0 Yes [id number] 250mg Take 1 [facility] HCL 250 mg 4-04 tablet by ity of tablet 00:00: mouth [place] 00 daily. Medical Branch benzonatate 2022-0 Yes [id number] 200mg Take 1 [facility] 200 mg 4-04 capsule by ity of capsule 00:00: mouth 3 (three) Medical times Branch daily as needed for Cough. terbinafine 2023-0 Yes [id number] 250mg Take 1 [facility] HCL 250 mg 4-04 tablet by ity of tablet 00:00: mouth [place] 00 daily. Medical Branch benzonatate 2023-0 Yes [id number] 200mg Take 1 [facility] 200 mg 4-04 capsule by ity of capsule 00:00: mouth 3 (three) Medical times Branch daily as needed for Cough. terbinafine 2023-0 Yes [id number] 250mg Take 1 [facility] H[facility] 250 mg 4-04 tablet by ity of tablet 00:00: mouth 00 daily. Medical Branch benzonatate 3-0 Yes [id number] 200mg Take 1 [facility] 200 mg 4-04 capsule by ity of capsule 00:00: mouth (three) Medical times Branch daily as needed for Cough. terbinafine 3-0 Yes [id number] 250mg Take 1 [facility] HCL 250 mg 4-04 tablet by ity of tablet 00:00: mouth 00 daily. Medical Branch benzonatate 3-0 Yes [id number] 200mg Take 1 [facility] 200 mg 4-04 capsule by ity of capsule 00:00: mouth (three) Medical times Branch daily as needed for Cough. terbinafine 3-0 Yes [id number] 250mg Take 1 [facility] HCL 250 mg 4-04 tablet by ity of tablet 00:00: mouth [place] 00 daily. Medical Branch benzonatate 2023-0 Yes [id number] 200mg Take 1 [facility] 200 mg 4-04 capsule by ity of capsule 00:00: mouth (three) Medical times Branch daily as needed for Cough. terbinafine 2023-0 Yes [id number] 250mg Take 1 [facility] HCL 250 mg 4-04 tablet by ity of tablet 00:00: mouth [place] 00 daily. Medical Branch benzonatate 2023-0 Yes [id number] 200mg Take 1 [facility] 200 mg 4-04 capsule by ity of capsule 00:00: mouth 3 (three) Medical times Branch daily as needed for Cough. terbinafine 2023-0 Yes [id number] 250mg Take 1 [facility] HCL 250 mg 4-04 tablet by ity of tablet 00:00: mouth [place] 00 daily. Medical Branch benzonatate 2023-0 Yes [id number] 200mg Take 1 [facility] 200 mg 4-04 capsule by ity of capsule 00:00: mouth (three) Medical times Branch daily as needed for Cough. terbinafine 2023-0 Yes [id number] 250mg Take 1 [facility] H[facility] 250 mg 4-04 tablet by ity of tablet 00:00: mouth 00 daily. Medical Branch benzonatate 2023-0 Yes [id number] 200mg Take 1 [facility] 200 mg 4-04 capsule by ity of capsule 00:00: mouth (three) Medical times Branch daily as needed for Cough. terbinafine 2023-0 Yes [id number] 250mg Take 1 [facility] H[facility] 250 mg 4-04 tablet by ity of tablet 00:00: mouth 00 daily. Medical Branch benzonatate 3-0 Yes [id number] 200mg Take 1 [facility] 200 mg 4-04 capsule by ity of capsule 00:00: mouth (three) Medical times Branch daily as needed for Cough. terbinafine 3-0 Yes [id number] 250mg Take 1 [facility] H[facility] 250 mg 4-04 tablet by ity of tablet 00:00: mouth 00 daily. Medical Branch benzonatate 3-0 Yes [id number] 200mg Take 1 [facility] 200 mg 4-04 capsule by ity of capsule 00:00: mouth (three) Medical times Branch daily as needed for Cough. terbinafine 2023-0 Yes [id number] 250mg Take 1 [facility] HCL 250 mg 4-04 tablet by ity of tablet 00:00: mouth 00 daily. Medical Branch benzonatate 3-0 Yes [id number] 200mg Take 1 [facility] 200 mg 4-04 capsule by ity of capsule 00:00: mouth (three) Medical times Branch daily as needed for Cough. terbinafine 2023-0 Yes [id number] 250mg Take 1 [facility] 250 mg 4-04 tablet by ity of tablet 00:00: mouth 00 daily. Medical Branch benzonatate 2023-0 Yes [id number] 200mg Take 1 [facility] 200 mg 4-04 capsule by ity of capsule 00:00: mouth (three) Medical times Branch daily as needed for Cough. terbinafine 2023-0 Yes [id number] 250mg Take 1 [facility] H[facility] 250 mg 4-04 tablet by ity of tablet 00:00: mouth [place] 00 daily. Medical Branch benzonatate 3-0 Yes [id number] 200mg Take 1 [facility] 200 mg 4-04 capsule by ity of capsule 00:00: mouth 3 (three) Medical times Branch daily as needed for Cough. terbinafine 2023-0 Yes [id number] 250mg Take 1 [facility] HCL 250 mg 4-04 tablet by ity of tablet 00:00: mouth [place] 00 daily. Medical Branch benzonatate 3-0 Yes [id number] 200mg Take 1 [facility] 200 mg 4-04 capsule by ity of capsule 00:00: mouth 3 (three) Medical times Branch daily as needed for Cough. terbinafine 3-0 Yes [id number] 250mg Take 1 [facility] H[facility] 250 mg 4-04 tablet by ity of tablet 00:00: mouth [place] 00 daily. Medical Branch benzonatate 3-0 Yes [id number] 200mg Take 1 [facility] 200 mg 4-04 capsule by ity of capsule 00:00: mouth (three) Medical times Branch daily as needed for Cough. terbinafine 3-0 Yes [id number] 250mg Take 1 [facility] H[facility] 250 mg 4-04 tablet by ity of tablet 00:00: mouth [place] 00 daily. Medical Branch benzonatate 3-0 Yes [id number] 200mg Take 1 [facility] 200 mg 4-04 capsule by ity of capsule 00:00: mouth (three) Medical times Branch daily as needed for Cough. terbinafine 3-0 Yes [id number] 250mg Take 1 [facility] H[facility] 250 mg 4-04 tablet by ity of tablet 00:00: mouth [place] 00 daily. Medical Branch benzonatate 3-0 Yes [id number] 200mg Take 1 [facility] 200 mg 4-04 capsule by ity of capsule 00:00: mouth 3 (three) Medical times Branch daily as needed for Cough. terbinafine 2023-0 Yes [id number] 250mg Take 1 [facility] H[facility] 250 mg 4-04 tablet by ity of tablet 00:00: mouth [place] 00 daily. Medical Branch benzonatate 3-0 Yes [id number] 200mg Take 1 [facility] 200 mg 4-04 capsule by ity of capsule 00:00: mouth 3 (three) Medical times Branch daily as needed for Cough. terbinafine 2023-0 Yes [id number] 250mg Take 1 [facility] H[facility] 250 mg 4-04 tablet by ity of tablet 00:00: mouth [place] 00 daily. Medical Branch benzonatate 2023-0 Yes [id number] 200mg Take 1 [facility] 200 mg 4-04 capsule by ity of capsule 00:00: mouth 3 (three) Medical times Branch daily as needed for Cough. terbinafine 2023-0 Yes [id number] 250mg Take 1 [facility] H[facility] 250 mg 4-04 tablet by ity of tablet 00:00: mouth 00 daily. Medical Branch benzonatate 3-0 Yes [id number] 200mg Take 1 [facility] 200 mg 4-04 capsule by ity of capsule 00:00: mouth (three) Medical times Branch daily as needed for Cough. terbinafine 2023-0 Yes [id number] 250mg Take 1 [facility] H[facility] 250 mg 4-04 tablet by [facility]y of tablet 00:00: mouth 00 daily. Medical Branch benzonatate 3-0 Yes [id number] 200mg Take 1 [facility] 200 mg 4-04 capsule by [facility]y of capsule 00:00: mouth (three) Medical times Branch daily as needed for Cough. terbinafine 2023-0 Yes [id number] 250mg Take 1 [facility] H[facility] 250 mg 4-04 tablet by ity of tablet 00:00: mouth 00 daily. Medical Branch benzonatate 2023-0 Yes [id number] 200mg Take 1 [facility] 200 mg 4-04 capsule by ity of capsule 00:00: mouth (three) Medical times Branch daily as needed for Cough. terbinafine 2023-0 Yes [id number] 250mg Take 1 [facility] H[facility] 250 mg 4-04 tablet by [facility]y of tablet 00:00: mouth [place] 00 daily. Medical Branch benzonatate 2023-0 Yes [id number] 200mg Take 1 [facility] 200 mg 4-04 capsule by ity of capsule 00:00: mouth (three) Medical times Branch daily as needed for Cough. terbinafine 2023-0 Yes [id number] 250mg Take 1 [facility] HCL 250 mg 4-04 tablet by [facility]y of tablet 00:00: mouth [place] 00 daily. Medical Branch benzonatate 2023-0 Yes [id number] 200mg Take 1 [facility] 200 mg 4-04 capsule by [facility]y of capsule 00:00: mouth (three) Medical times Branch daily as needed for Cough. terbinafine 2023-0 Yes [id number] 250mg Take 1 [facility] H[facility] 250 mg 4-04 tablet by [facility]y of tablet 00:00: mouth [place] 00 daily. Medical Branch benzonatate 3-0 Yes [id number] 200mg Take 1 [facility] 200 mg 4-04 capsule by [facility]y of capsule 00:00: mouth 3 (three) Medical times Branch daily as needed for Cough. terbinafine 2023-0 Yes [id number] 250mg Take 1 [facility] H[facility] 250 mg 4-04 tablet by [facility]y of tablet 00:00: mouth 00 daily. Medical Branch benzonatate 3-0 Yes [id number] 200mg Take 1 [facility] 200 mg 4-04 capsule by [facility]y of capsule 00:00: mouth (three) Medical times Branch daily as needed for Cough. terbinafine 3-0 Yes [id number] 250mg Take 1 [facility] H[facility] 250 mg 4-04 tablet by [facility]y of tablet 00:00: mouth 00 daily. Medical Branch benzonatate 3-0 Yes [id number] 200mg Take 1 [facility] 200 mg 4-04 capsule by [facility]y of capsule 00:00: mouth (three) Medical times Branch daily as needed for Cough. terbinafine 2023-0 Yes [id number] 250mg Take 1 [facility] H[facility] 250 mg 4-04 tablet by [facility]y of tablet 00:00: mouth [place] 00 daily. Medical Branch benzonatate 2023-0 Yes [id number] 200mg Take 1 [facility] 200 mg 4-04 capsule by [facility]y of capsule 00:00: mouth (three) Medical times Branch daily as needed for Cough. terbinafine 2023-0 Yes [id number] 250mg Take 1 [facility] HCL 250 mg 4-04 tablet by [facility]y of tablet 00:00: mouth [place] 00 daily. Medical Branch benzonatate 2023-0 Yes [id number] 200mg Take 1 [facility] 200 mg 4-04 capsule by [facility]y of capsule 00:00: mouth 3 (three) Medical times Branch daily as needed for Cough. terbinafine 2023-0 Yes [id number] 250mg Take 1 [facility] HCL 250 mg 4-04 tablet by [facility]y of tablet 00:00: mouth [place] 00 daily. Medical Branch benzonatate 3-0 Yes [id number] 200mg Take 1 [facility] 200 mg 4-04 capsule by [facility]y of capsule 00:00: mouth 3 (three) Medical times Branch daily as needed for Cough. terbinafine 2022-0 Yes [id number] 250mg Take 1 [facility] HCL 250 mg 4-04 tablet by [facility]y of tablet 00:00: mouth [place] 00 daily. Medical Branch benzonatate 2022-0 Yes [id number] 200mg Take 1 [facility] 200 mg 4-04 capsule by [facility]y of capsule 00:00: mouth 3 (three) Medical times Branch daily as needed for Cough. terbinafine 2022-0 Yes [id number] 250mg Take 1 [facility] H[facility] 250 mg 4-04 tablet by [facility] of tablet 00:00: mouth [place] 00 daily. Medical Branch benzonatate 2022-0 Yes [id number] 200mg Take 1 [facility] 200 mg 4-04 capsule by [facility]y of capsule 00:00: mouth (three) Medical times Branch daily as needed for Cough. terbinafine 2022-0 Yes [id number] 250mg Take 1 [facility] H[facility] 250 mg 4-04 tablet by [facility] of tablet 00:00: mouth [place] 00 daily. Medical Branch benzonatate 2022-0 Yes [id number] 200mg Take 1 [facility] 200 mg 4-04 capsule by [facility] of capsule 00:00: mouth (three) [facility] times [facility] daily as needed for Cough. terbinafine 2022-0 Yes [id number] 250mg Take 1 [facility] HCL 250 mg 4-04 tablet by [facility] tablet 00:00: mouth [place] 00 daily. [facility] benzonatate 2022-0 Yes [id number] 200mg Take 1 [facility] 200 mg 4-04 capsule by [facility] capsule 00:00: mouth 3 (three) Medical times [facility] daily as needed for Cough. terbinafine 3-0 3- No [id number] 250mg Take 1 [facility] HCL 250 mg 4-04 06-27 tablet by [facility] tablet 00:00: 00:00 mouth [place] 00 :00 daily. [facility] benzonatate 3-0 2023- No [id number] 200mg Take 1 [facility] 200 mg 4-05 19- capsule by [facility] capsule 00:00: 00:00 mouth 3 [place] 00 :00 (three) Medical times [facility] daily as needed for Cough. terbinafine 2022- No [id number] 250mg Take 1 [facility] HCL 250 mg -05 19- tablet by [facility] tablet 00:00: 00:00 mouth [place] 00 :00 daily. [facility] benzonatate 2022- No [id number] 200mg Take 1 [facility] 200 mg 4-05 19- capsule by [facility] capsule 00:00: 00:00 mouth 3 [place] 00 :00 (three) Medical times [facility] daily as needed for Cough. terbinafine 2022- No [id number] 250mg Take 1 [facility] HCL 250 mg -05 19- tablet by [facility] tablet 00:00: 00:00 mouth [place] 00 :00 daily. [facility] benzonatate 2022- No [id number] 200mg Take 1 [facility] 200 mg -08-09 capsule by [facility] capsule 00:00: 00:00 mouth 3 [place] 00 :00 (three) Medical times [facility] daily as needed for Cough. furosemide 2022- No [id number] 40mg Take 1 [facility] 40 mg 4-05 17-27 tablet by [facility] tablet 00:00: 00:00 mouth [place] 00 :00 daily. [facility] furosemide 2022- No [id number] 40mg Take 1 [facility] 40 mg 4-05 [...] ONE TABLET DAILY losartan 25 2022-0 Yes [id number] 25mg Take 1 [facility] mg tablet 3-13 tablet by [facility] o f 00:00: mouth [place] 00 daily. [facility] losartan 25 2022-0 Yes [id number] 25mg Take 1 [facility] mg tablet 3-13 tablet by [facility] o f 00:00: mouth [place] 00 daily. [facility] losartan 25 2022-0 Yes [id number] 25mg Take 1 [facility] mg tablet 3-13 tablet by [facility] o f 00:00: mouth [place] 00 daily. [facility] losartan 25 2022-0 Yes [id number] 25mg Take 1 [facility] mg tablet 3-13 tablet by [facility] o f 00:00: mouth [place] 00 daily. [facility] losartan 25 2022-0 Yes [id number] 25mg Take 1 [facility] mg tablet 3-13 tablet by [facility] o f 00:00: mouth [place] 00 daily. [facility] losartan 25 2022-0 3- No [id number] 25mg Take 1 [facility] mg tablet 3-13 04-12 tablet by [facility] of 00:00: 00:00 mouth [place] 00 :00 daily. [facility] losartan 25 2022-0 3- No [id number] 25mg Take 1 [facility] mg tablet 3-13 04-12 tablet by [facility] of 00:00: 00:00 mouth [place] 00 :00 daily. [facility] cefUROXime 3-0 Yes [id number] 250mg Take 1 [facility] 250 mg 2-14 tablet by [facility] tablet 00:00: mouth 00 (two) [facility] times [facility] daily. cefUROXime 2023-0 Yes [id number] 250mg Take 1 [facility] 250 mg 2-14 tablet by [facility] tablet 00:00: mouth 00 (two) [facility] times [facility] daily. cefUROXime 2023-0 Yes [id number] 250mg Take 1 [facility] 250 mg 2-14 tablet by [facility] tablet 00:00: mouth (two) [facility] times [facility] daily. cefUROXime 2023-0 Yes [id number] 250mg Take 1 [facility] 250 mg 2-14 tablet by [facility] tablet 00:00: mouth 2 00 (two) [facility] times [facility] daily. cefUROXime 2023-0 Yes [id number] 250mg Take 1 [facility] 250 mg 2-14 tablet by [facility] tablet 00:00: mouth 2 00 (two) [facility] times [facility] daily. cefUROXime 2023-0 Yes [id number] 250mg Take 1 [facility] 250 mg 2-14 tablet by [facility] tablet 00:00: mouth 2 (two) [facility] times [facility] daily. cefUROXime 2023-0 Yes [id number] 250mg Take 1 [facility] 250 mg 2-14 tablet by [facility] tablet 00:00: mouth 2 [place] 00 (two) [facility] times [facility] daily. cefUROXime 3-0 Yes [id number] 250mg Take 1 [facility] 250 mg 2-14 tablet by [facility] tablet 00:00: mouth 2 [place] 00 (two) Medical times [facility] daily. cefUROXime 3-0 2023- No [id number] 250mg Take 1 [facility] 250 mg 2-14 04-04 tablet by [facility] tablet 00:00: 00:00 mouth 2 [place] 00 :00 (two) [facility] times [facility] daily. cefUROXime 3-0 2023- No [id number] 250mg Take 1 [facility] 250 mg 2-14 04-04 tablet by [facility] tablet 00:00: 00:00 mouth 2 [place] 00 :00 (two) [facility] times [facility] daily. cefdinir 3-0 Yes [id number] 300mg Take 1 [facility] briana 300 mg 2-09 capsule by [facility] capsule 00:00: mouth [place] 00 every 12 Medical (twelve) Branch hours. cefdinir 3-0 Yes [id number] 300mg Take 1 [facility] briana 300 mg 2-09 capsule by [facility] capsule 00:00: mouth [place] 00 every 12 Medical (twelve) Branch hours. ferrous 2022-0 Yes [id number] 324mg Take 1 [facility] briana sulfate 324 1-31 tablet by [facility] of mg (65 mg 00:00: mouth [place] iron) EC 00 daily with Medic al tablet breakfast. Branch ferrous 3-0 Yes [id number] 324mg Take 1 [facility] briana sulfate 324 1-31 tablet by [facility] of mg (65 mg 00:00: mouth [place] iron) EC 00 daily with Medic al tablet breakfast. Branch ferrous 3-0 Yes [id number] 324mg Take 1 [facility] briana sulfate 324 1-31 tablet by [facility] of mg (65 mg 00:00: mouth [place] iron) EC 00 daily with Medic al tablet breakfast. Branch ferrous 3-0 Yes [id number] 324mg Take 1 [facility] briana sulfate 324 1-31 tablet by [facility] of mg (65 mg 00:00: mouth [place] iron) EC 00 daily with Medic al tablet breakfast. Branch ferrous 3-0 Yes [id number] 324mg Take 1 [facility] bri[place] sulfate 324 1-31 tablet by [facility] of mg (65 mg 00:00: mouth [place] iron) EC 00 daily with Medic al tablet breakfast. Branch ferrous 3-0 Yes [id number] 324mg Take 1 [facility] bri[place] sulfate 324 1-31 tablet by [facility] of mg (65 mg 00:00: mouth [place] iron) EC 00 daily with Medic al tablet breakfast. Branch ferrous 3-0 Yes [id number] 324mg Take 1 [facility] bri[place] sulfate 324 1-31 tablet by [facility] of mg (65 mg 00:00: mouth [place] iron) EC 00 daily with Medic al tablet breakfast. Branch ferrous 3-0 Yes [id number] 324mg Take 1 [facility] bri[place] sulfate 324 1-31 tablet by [facility] of mg (65 mg 00:00: mouth [place] iron) EC 00 daily with Medic al tablet breakfast. Branch ferrous 3-0 Yes [id number] 324mg Take 1 [facility] bri[place] sulfate 324 1-31 tablet by [facility] of mg (65 mg 00:00: mouth [place] iron) EC 00 daily with Medic al tablet breakfast. Branch ferrous 3-0 Yes [id number] 324mg Take 1 [facility] bri[place] sulfate 324 1-31 tablet by [facility] of mg (65 mg 00:00: mouth [place] iron) EC 00 daily with Medic al tablet breakfast. Branch ferrous 3-0 Yes [id number] 324mg Take 1 [facility] bri[place] sulfate 324 1-31 tablet by [facility] of mg (65 mg 00:00: mouth [place] iron) EC 00 daily with Medic al tablet breakfast. Branch ferrous 3-0 Yes [id number] 324mg Take 1 [facility] bri[place] sulfate 324 1-31 tablet by [facility] of mg (65 mg 00:00: mouth [place] iron) EC 00 daily with Medic al tablet breakfast. Branch ferrous 3-0 Yes [id number] 324mg Take 1 [facility] bri[place] sulfate 324 1-31 tablet by [facility] of mg (65 mg 00:00: mouth [place] iron) EC 00 daily with Medic al tablet breakfast. Branch ferrous 3-0 Yes [id number] 324mg Take 1 [facility] bri[place] sulfate 324 1-31 tablet by [facility] of mg (65 mg 00:00: mouth [place] iron) EC 00 daily with Medic al tablet breakfast. Branch ferrous 3-0 Yes [id number] 324mg Take 1 [facility] bri[place] sulfate 324 1-31 tablet by [facility] of mg (65 mg 00:00: mouth [place] iron) EC 00 daily with Medic al tablet breakfast. Branch ferrous 3-0 Yes [id number] 324mg Take 1 Un bri[place] sulfate 324 1-31 tablet by [facility] of mg (65 mg 00:00: mouth [place] iron) EC 00 daily with Medic al tablet breakfast. Branch ferrous 3-0 Yes [id number] 324mg Take 1 [facility] bri[place] sulfate 324 1-31 tablet by [facility] of mg (65 mg 00:00: mouth [place] iron) EC 00 daily with Medic al tablet breakfast. Branch ferrous 3-0 Yes [id number] 324mg Take 1 [facility] bri[place] sulfate 324 1-31 tablet by [facility] of mg (65 mg 00:00: mouth [place] iron) EC 00 daily with Medic al tablet breakfast. Branch ferrous 3-0 Yes [id number] 324mg Take 1 [facility] [place] sulfate 324 1-31 tablet by [facility] of mg (65 mg 00:00: mouth [place] iron) EC 00 daily with Medic al tablet breakfast. Branch ferrous 2022-0 Yes [id number] 324mg Take 1 [facility] bri[place] sulfate 324 1-31 tablet by [facility] of mg (65 mg 00:00: mouth [place] iron) EC 00 daily with Medic al tablet breakfast. Branch ferrous 3-0 Yes [id number] 324mg Take 1 [facility] briana sulfate 324 1-31 tablet by [facility] of mg (65 mg 00:00: mouth [place] iron) EC 00 daily with Medic al tablet breakfast. Branch ferrous 3-0 Yes [id number] 324mg Take 1 [facility] [place] sulfate 324 1-31 tablet by [facility] of mg (65 mg 00:00: mouth [place] iron) EC 00 daily with Medic al tablet breakfast. Branch ferrous 3-0 Yes [id number] 324mg Take 1 [facility] [place] sulfate 324 1-31 tablet by [facility] of mg (65 mg 00:00: mouth [place] iron) EC 00 daily with Medic al tablet breakfast. Branch ferrous 3-0 Yes [id number] 324mg Take 1 [facility] bri[place] sulfate 324 1-31 tablet by [facility] of mg (65 mg 00:00: mouth [place] iron) EC 00 daily with Medic al tablet breakfast. Branch ferrous 3-0 Yes [id number] 324mg Take 1 [facility] bri[place] sulfate 324 1-31 tablet by [facility] of mg (65 mg 00:00: mouth [place] iron) EC 00 daily with Medic al tablet breakfast. Branch ferrous 3-0 Yes [id number] 324mg Take 1 [facility] bri[place] sulfate 324 1-31 tablet by [facility] of mg (65 mg 00:00: mouth [place] iron) EC 00 daily with Medic al tablet breakfast. Branch ferrous 3-0 Yes [id number] 324mg Take 1 [facility] bri[place] sulfate 324 1-31 tablet by [facility] of mg (65 mg 00:00: mouth [place] iron) EC 00 daily with Medic al tablet breakfast. Branch ferrous 3-0 Yes [id number] 324mg Take 1 [facility] bri[place] sulfate 324 1-31 tablet by [facility] of mg (65 mg 00:00: mouth [place] iron) EC 00 daily with Medic al tablet breakfast. Branch ferrous 3-0 Yes [id number] 324mg Take 1 [facility] bri[place] sulfate 324 1-31 tablet by [facility] of mg (65 mg 00:00: mouth [place] iron) EC 00 daily with Medic al tablet breakfast. Branch ferrous 3-0 Yes [id number] 324mg Take 1 [facility] bri[place] sulfate 324 1-31 tablet by [facility] of mg (65 mg 00:00: mouth [place] iron) EC 00 daily with Medic al tablet breakfast. Branch ferrous 2022-0 Yes [id number] 324mg Take 1 [facility] bri[place] sulfate 324 1-31 tablet by [facility] of mg (65 mg 00:00: mouth [place] iron) EC 00 daily with Medic al tablet breakfast. Branch ferrous 3-0 Yes [id number] 324mg Take 1 [facility] bri[place] sulfate 324 1-31 tablet by [facility] of mg (65 mg 00:00: mouth [place] iron) EC 00 daily with Medic al tablet breakfast. Branch ferrous 3-0 Yes [id number] 324mg Take 1 [facility] bri[place] sulfate 324 1-31 tablet by [facility] of mg (65 mg 00:00: mouth [place] iron) EC 00 daily with Medic al tablet breakfast. Branch ferrous 3-0 Yes [id number] 324mg Take 1 [facility] bri[place] sulfate 324 1-31 tablet by [facility] of mg (65 mg 00:00: mouth [place] iron) EC 00 daily with Medic al tablet breakfast. Branch ferrous 3-0 Yes [id number] 324mg Take 1 [facility] bri[place] sulfate 324 1-31 tablet by [facility] of mg (65 mg 00:00: mouth [place] iron) EC 00 daily with Medic al tablet breakfast. Branch ferrous 3-0 Yes [id number] 324mg Take 1 [facility] bri[place] sulfate 324 1-31 tablet by [facility] of mg (65 mg 00:00: mouth [place] iron) EC 00 daily with Medic al tablet breakfast. Branch ferrous 3-0 Yes [id number] 324mg Take 1 [facility] briana sulfate 324 1-31 tablet by [facility] of mg (65 mg 00:00: mouth [place] iron) EC 00 daily with Medic al tablet breakfast. Branch ferrous 3-0 Yes [id number] 324mg Take 1 [facility] bri[place] sulfate 324 1-31 tablet by [facility] of mg (65 mg 00:00: mouth [place] iron) EC 00 daily with Medic al tablet breakfast. Branch ferrous 3-0 Yes [id number] 324mg Take 1 [facility] briana sulfate 324 1-31 tablet by [facility] of mg (65 mg 00:00: mouth [place] iron) EC 00 daily with Medic al tablet breakfast. Branch ferrous 3-0 Yes [id number] 324mg Take 1 [facility] briana sulfate 324 1-31 tablet by [facility] of mg (65 mg 00:00: mouth [place] iron) EC 00 daily with Medic al tablet breakfast. Branch ferrous 2022-0 Yes [id number] 324mg Take 1 [facility] bri[place] sulfate 324 1-31 tablet by [facility] of mg (65 mg 00:00: mouth [place] iron) EC 00 daily with Medic al tablet breakfast. Branch ferrous 2022-0 Yes [id number] 324mg Take 1 [facility] briana sulfate 324 1-31 tablet by [facility] of mg (65 mg 00:00: mouth [place] iron) EC 00 daily with Medic al tablet breakfast. Branch ferrous 3-0 Yes [id number] 324mg Take 1 [facility] briana sulfate 324 1-31 tablet by [facility] of mg (65 mg 00:00: mouth [place] iron) EC 00 daily with Medic al tablet breakfast. Branch ferrous 3-0 Yes [id number] 324mg Take 1 [facility] [place] sulfate 324 1-31 tablet by [facility] of mg (65 mg 00:00: mouth [place] iron) EC 00 daily with Medic al tablet breakfast. Branch ferrous 3-0 Yes [id number] 324mg Take 1 [facility] briana sulfate 324 1-31 tablet by [facility] of mg (65 mg 00:00: mouth [place] iron) EC 00 daily with Medic al tablet breakfast. Branch ferrous 3-0 Yes [id number] 324mg Take 1 [facility] briana sulfate 324 1-31 tablet by [facility] of mg (65 mg 00:00: mouth [place] iron) EC 00 daily with Medic al tablet breakfast. Branch ferrous 3-0 Yes [id number] 324mg Take 1 [facility] briana sulfate 324 1-31 tablet by [facility] of mg (65 mg 00:00: mouth [place] iron) EC 00 daily with Medic al tablet breakfast. Branch ferrous 3-0 Yes [id number] 324mg Take 1 Un bri[place] sulfate 324 1-31 tablet by [facility] of mg (65 mg 00:00: mouth [place] iron) EC 00 daily with Medic al tablet breakfast. Branch ferrous 3-0 Yes [id number] 324mg Take 1 Un birana sulfate 324 1-31 tablet by [facility] of mg (65 mg 00:00: mouth [place] iron) EC 00 daily with Medic al tablet breakfast. Branch ferrous 3-0 Yes [id number] 324mg Take 1 Un briana sulfate 324 1-31 tablet by [facility] of mg (65 mg 00:00: mouth [place] iron) EC 00 daily with Medic al tablet breakfast. Branch ferrous 3-0 Yes [id number] 324mg Take 1 [facility] bri[place] sulfate 324 1-31 tablet by [facility] of mg (65 mg 00:00: mouth [place] iron) EC 00 daily with Medic al tablet breakfast. Branch ferrous 3-0 Yes [id number] 324mg Take 1 [facility] briana sulfate 324 1-31 tablet by [facility] of mg (65 mg 00:00: mouth [place] iron) EC 00 daily with Medic al tablet breakfast. Branch ferrous 3-0 Yes [id number] 324mg Take 1 [facility] bri[place] sulfate 324 1-31 tablet by [facility] of mg (65 mg 00:00: mouth [place] iron) EC 00 daily with Medic al tablet breakfast. Branch ferrous 3-0 Yes [id number] 324mg Take 1 [facility] briana sulfate 324 1-31 tablet by [facility] of mg (65 mg 00:00: mouth [place] iron) EC 00 daily with Medic al tablet breakfast. Branch ferrous 3-0 Yes [id number] 324mg Take 1 [facility] bri[place] sulfate 324 1-31 tablet by [facility] of mg (65 mg 00:00: mouth [place] iron) EC 00 daily with Medic al tablet breakfast. Branch ferrous 3-0 Yes [id number] 324mg Take 1 [facility] bri[place] sulfate 324 1-31 tablet by [facility] of mg (65 mg 00:00: mouth [place] iron) EC 00 daily with Medic al tablet breakfast. Branch ferrous 0 Yes [id number] 324mg Take 1 [facility] briana sulfate 324 1-31 tablet by [facility] of mg (65 mg 00:00: mouth [place] iron) EC 00 daily with Medic al tablet breakfast. Branch ferrous 0 Yes [id number] 324mg Take 1 [facility] briana sulfate 324 1-31 tablet by [facility] of mg (65 mg 00:00: mouth [place] iron) EC 00 daily with Medic al tablet breakfast. Branch ferrous 0 Yes [id number] 324mg Take 1 [facility] briana sulfate 324 1-31 tablet by [facility] of mg (65 mg 00:00: mouth [place] iron) EC 00 daily with Medic al tablet breakfast. Branch ferrous 2022- No [id number] 324mg Take 1 U nivers sulfate 324 1-31 06-27 tablet by it y of mg (65 mg 00:00: 00:00 mouth [place] iron) EC 00 :00 daily with Medic al tablet breakfast. Branch ferrous 2022- No [id number] 324mg Take 1 U nivers sulfate 324 -31 06-27 tablet by it y of mg (65 mg 00:00: 00:00 mouth [place] iron) EC 00 :00 daily with Medic al tablet breakfast. Branch ferrous 2022- No [id number] 324mg Take 1 U nivers sulfate 324 1-31 06-27 tablet by it y of mg (65 mg 00:00: 00:00 mouth [place] iron) EC 00 :00 daily with Medic al tablet breakfast. Branch losartan 50 2022-0 Yes [id number] 50mg Take 1 [facility] mg tablet 1-27 tablet by ity o f 00:00: mouth [place] 00 daily. Medical Branch furosemide 2022-0 Yes [id number] 20mg Take 1 [facility] nivers 20 mg 1-27 tablet by [facility] of tablet 00:00: mouth [place] 00 daily. Medical Branch losartan 50 2022-0 Yes [id number] 50mg Take 1 [facility] mg tablet 1-27 tablet by ity o f 00:00: mouth [place] 00 daily. [facility] furosemide 2022-0 Yes [id number] 20mg Take 1 [facility] nivers 20 mg 1-27 tablet by [facility] of tablet 00:00: mouth [place] 00 daily. [facility] Branch losartan 50 2022-0 Yes [id number] 50mg Take 1 [facility] mg tablet 1-27 tablet by ity o f 00:00: mouth [place] 00 daily. [facility] Branch furosemide 2022-0 Yes [id number] 20mg Take 1 [facility] nivers 20 mg 1-27 tablet by [facility] of tablet 00:00: mouth [place] 00 daily. [facility] Branch losartan 50 2022-0 Yes [id number] 50mg Take 1 [facility] mg tablet 1-27 tablet by ity o f 00:00: mouth [place] 00 daily. [facility] Branch furosemide 2022-0 Yes [id number] 20mg Take 1 [facility] nivers 20 mg 1-27 tablet by [facility] of tablet 00:00: mouth [place] 00 daily. [facility] Branch losartan 50 2022-0 Yes [id number] 50mg Take 1 [facility] mg tablet 1-27 tablet by ity o f 00:00: mouth [place] 00 daily. [facility] Branch furosemide 2022-0 Yes [id number] 20mg Take 1 [facility] nivers 20 mg 1-27 tablet by [facility] of tablet 00:00: mouth [place] 00 daily. [facility] losartan 50 2022-0 Yes [id number] 50mg Take 1 [facility] mg tablet 1-27 tablet by ity o f 00:00: mouth [place] 00 daily. [facility] furosemide 2022-0 Yes [id number] 20mg Take 1 [facility] nivers 20 mg 1-27 tablet by [facility] of tablet 00:00: mouth [place] 00 daily. [facility] Branch losartan 50 2022-0 Yes [id number] 50mg Take 1 [facility] mg tablet 1-27 tablet by [facility]y o f 00:00: mouth [place] 00 daily. [facility] furosemide 3-0 Yes [id number] 20mg Take 1 [facility] nivers 20 mg 1-27 tablet by [facility] of tablet 00:00: mouth [place] 00 daily. Medical Branch losartan 50 2022-0 Yes [id number] 50mg Take 1 [facility] mg tablet 1-27 tablet by ity o f 00:00: mouth [place] 00 daily. Medical Branch furosemide 3-0 Yes [id number] 20mg Take 1 [facility] nivers 20 mg 1-27 tablet by [facility] of tablet 00:00: mouth [place] 00 daily. [facility] Branch losartan 50 2022-0 Yes [id number] 50mg Take 1 [facility] mg tablet 1-27 tablet by [facility] o f 00:00: mouth [place] 00 daily. [facility] Branch furosemide 3-0 Yes [id number] 20mg Take 1 [facility] nivers 20 mg 1-27 tablet by [facility] of tablet 00:00: mouth [place] 00 daily. [facility] Branch losartan 50 2022-0 Yes [id number] 50mg Take 1 [facility] mg tablet 1-27 tablet by [facility] o f 00:00: mouth [place] 00 daily. [facility] Branch furosemide 3-0 Yes [id number] 20mg Take 1 [facility] nivers 20 mg 1-27 tablet by [facility] of tablet 00:00: mouth [place] 00 daily. [facility] Branch losartan 50 2022-0 Yes [id number] 50mg Take 1 [facility] mg tablet 1-27 tablet by [facility] o f 00:00: mouth [place] 00 daily. [facility] Branch furosemide 3-0 Yes [id number] 20mg Take 1 [facility] nivers 20 mg 1-27 tablet by [facility] of tablet 00:00: mouth [place] 00 daily. [facility] Branch losartan 50 2022-0 Yes [id number] 50mg Take 1 [facility] mg tablet 1-27 tablet by [facility] o f 00:00: mouth [place] 00 daily. [facility] Branch furosemide 3-0 Yes [id number] 20mg Take 1 [facility] nivers 20 mg 1-27 tablet by [facility] of tablet 00:00: mouth [place] 00 daily. [facility] Branch losartan 50 2022-0 Yes [id number] 50mg Take 1 [facility] mg tablet 1-27 tablet by ity o f 00:00: mouth [place] 00 daily. [facility] Branch furosemide 3-0 Yes [id number] 20mg Take 1 [facility] nivers 20 mg 1-27 tablet by [facility] of tablet 00:00: mouth [place] 00 daily. [facility] Branch losartan 50 2022-0 Yes [id number] 50mg Take 1 [facility] mg tablet 1-27 tablet by [facility]y o f 00:00: mouth [place] 00 daily. [facility] Branch furosemide 3-0 Yes [id number] 20mg Take 1 [facility] nivers 20 mg 1-27 tablet by [facility] of tablet 00:00: mouth [place] 00 daily. Medical Branch losartan 50 2022-0 Yes [id number] 50mg Take 1 [facility] mg tablet 1-27 tablet by ity o f 00:00: mouth [place] 00 daily. [facility] Branch furosemide 2023-0 Yes [id number] 20mg Take 1 [facility] nivers 20 mg 1-27 tablet by [facility] of tablet 00:00: mouth [place] 00 daily. [facility] losartan 50 2022-0 Yes [id number] 50mg Take 1 [facility] mg tablet 1-27 tablet by [facility] o f 00:00: mouth [place] 00 daily. [facility] Branch furosemide Yes [id number] 20mg Take 1 [facility] nivers 20 mg 1-27 tablet by [facility] of tablet 00:00: mouth [place] 00 daily. [facility] furosemide Yes [id number] 20mg Take 1 [facility] nivers 20 mg 1-27 tablet by [facility] of tablet 00:00: mouth [place] 00 daily. [facility] furosemide Yes [id number] 20mg Take 1 [facility] nivers 20 mg 1-27 tablet by [facility] of tablet 00:00: mouth [place] 00 daily. [facility] Branch furosemide Yes [id number] 20mg Take 1 [facility] nivers 20 mg 1-27 tablet by [facility] of tablet 00:00: mouth [place] 00 daily. [facility] furosemide 2022- No [id number] 20mg Take 1 [facility] 20 mg 1-27 04-04 tablet by [facility] of tablet 00:00: 00:00 mouth [place] 00 :00 daily. [facility] furosemide 2022- No [id number] 20mg Take 1 [facility] 20 mg 1-27 -04 tablet by [facility] of tablet 00:00: 00:00 mouth [place] 00 :00 daily. [facility] losartan 50 2022- No [id number] 50mg Take 1 [facility] mg tablet 03-11 03-13 tablet by [facility] of 00:00: 00:00 mouth [place] 00 :00 daily. Medical [facility] carvediloL 2021-02 Yes [id number] 6.25mg Take 1 [facility] 6.25 mg 2-09 tablet by [facility] of tablet 00:00: mouth 2 [place] 00 (two) Medical times Branch daily with meals. atorvastati 2021-02 Yes [id number] 20mg Take 1 [facility] n 20 mg 2-09 tablet by [facility] of tablet 00:00: mouth at [place] 00 bedtime. Medical Branch omeprazole 2021-02 Yes [id number] 1{tbl} Take 1 [facility] 20 mg TbLD 2-09 tablet by [facility]y of 00:00: mouth [place] 00 daily. Medical [facility] tolterodine 2021-02 Yes [id number] 2mg Take 1 [facility] LA 2 mg 24 2-09 capsule by ity of hr capsule 00:00: mouth [place] 00 daily. [facility] carvediloL 2021-02 Yes [id number] 6.25mg Take 1 [facility] 6.25 mg 2-09 tablet by [facility] of tablet 00:00: mouth 2 (two) Medical times Branch daily with meals. atorvastati 2021-02 Yes [id number] 20mg Take 1 [facility] n 20 mg 2-09 tablet by [facility] of tablet 00:00: mouth at [place] 00 bedtime. Medical [facility] omeprazole 2021-02 Yes [id number] 1{tbl} Take 1 [facility] 20 mg TbLD 2-09 tablet by [facility] of 00:00: mouth [place] 00 daily. [facility] tolterodine 2021-02 Yes [id number] 2mg Take 1 [facility] [place] 2 mg 24 2-09 capsule by [facility] of hr capsule 00:00: mouth [place] 00 daily. [facility] carvediloL 2021-02 Yes [id number] 6.25mg Take 1 [facility] 6.25 mg 2-09 tablet by [facility] of tablet 00:00: mouth 2 (two) Medical times Branch daily with meals. atorvastati 2021-02 Yes [id number] 20mg Take 1 [facility] n 20 mg 2-09 tablet by [facility] of tablet 00:00: mouth at [place] 00 bedtime. [facility] omeprazole 2021-02 Yes [id number] 1{tbl} Take 1 [facility] 20 mg TbLD 2-09 tablet by [facility]y of 00:00: mouth [place] 00 daily. [facility] tolterodine 2021-02 Yes [id number] 2mg Take 1 [facility] [place] 2 mg 24 2-09 capsule by [facility] of hr capsule 00:00: mouth [place] 00 daily. [facility] carvediloL 2021-02 Yes [id number] 6.25mg Take 1 [facility] 6.25 mg 2-09 tablet by [facility] of tablet 00:00: mouth 2 (two) Medical times Branch daily with meals. atorvastati 2021-02 Yes [id number] 20mg Take 1 [facility] n 20 mg 2-09 tablet by [facility] of tablet 00:00: mouth at [place] 00 bedtime. [facility] omeprazole 2021-02 Yes [id number] 1{tbl} Take 1 [facility] 20 mg TbLD 2-09 tablet by [facility]y of 00:00: mouth [place] 00 daily. [facility] tolterodine 2021-02 Yes [id number] 2mg Take 1 [facility] [place] 2 mg 24 2-09 capsule by [facility] of hr capsule 00:00: mouth [place] 00 daily. [facility] carvediloL 2021-02 Yes [id number] 6.25mg Take 1 [facility] 6.25 mg 2-09 tablet by [facility] of tablet 00:00: mouth 2 (two) Medical times [facility] daily with meals. atorvastati 2021-02 Yes [id number] 20mg Take 1 [facility] n 20 mg 2-09 tablet by [facility] of tablet 00:00: mouth at [place] 00 bedtime. [facility] omeprazole 2021-02 Yes [id number] 1{tbl} Take 1 [facility] 20 mg TbLD 2-09 tablet by [facility]y of 00:00: mouth [place] 00 daily. [facility] tolterodine 2021-02 Yes [id number] 2mg Take 1 [facility] [place] 2 mg 24 2-09 capsule by [facility] of hr capsule 00:00: mouth [place] 00 daily. [facility] carvediloL 2021-02 Yes [id number] 6.25mg Take 1 [facility] 6.25 mg 2-09 tablet by [facility] of tablet 00:00: mouth 2 (two) Medical times Branch daily with meals. atorvastati 2021-02 Yes [id number] 20mg Take 1 [facility] n 20 mg 2-09 tablet by [facility] of tablet 00:00: mouth at [place] 00 bedtime. [facility] omeprazole 2021-02 Yes [id number] 1{tbl} Take 1 [facility] 20 mg TbLD 2-09 tablet by [facility]y of 00:00: mouth [place] 00 daily. [facility] tolterodine 2021-02 Yes [id number] 2mg Take 1 [facility] [place] 2 mg 24 2-09 capsule by [facility] of hr capsule 00:00: mouth [place] 00 daily. [facility] carvediloL 2021-02 Yes [id number] 6.25mg Take 1 [facility] 6.25 mg 2-09 tablet by [facility] of tablet 00:00: mouth 2 00 (two) Medical times Branch daily with meals. atorvastati 2021-02 Yes [id number] 20mg Take 1 [facility] n 20 mg 2-09 tablet by [facility] of tablet 00:00: mouth at [place] 00 bedtime. [facility] omeprazole 2021-02 Yes [id number] 1{tbl} Take 1 [facility] 20 mg TbLD 2-09 tablet by ity of 00:00: mouth [place] 00 daily. [facility] tolterodine 2021-02 Yes [id number] 2mg Take 1 [facility] [place] 2 mg 24 2-09 capsule by [facility] of hr capsule 00:00: mouth [place] 00 daily. [facility] carvediloL 2021-02 Yes [id number] 6.25mg Take 1 [facility] 6.25 mg 2-09 tablet by [facility] of tablet 00:00: mouth 2 (two) Medical times Branch daily with meals. atorvastati 2021-02 Yes [id number] 20mg Take 1 [facility] n 20 mg 2-09 tablet by [facility] of tablet 00:00: mouth at [place] 00 bedtime. [facility] omeprazole 2021-02 Yes [id number] 1{tbl} Take 1 [facility] 20 [facility] TbLD 2-09 tablet by [facility] 00:00: mouth [place] 00 daily. [facility] tolterodine 2021-02 Yes [id number] 2mg Take 1 [facility] [place] 2 mg 24 2-09 capsule by [facility] hr capsule 00:00: mouth [place] 00 daily. [facility] carvediloL 2021-02 Yes [id number] 6.25mg Take 1 [facility] 6.25 mg 2-09 tablet by [facility] tablet 00:00: mouth (two) [facility] times [facility] daily with meals. atorvastati 2021-02 Yes [id number] 20mg Take 1 [facility] n 20 mg 2-09 tablet by [facility] tablet 00:00: mouth at [place] 00 bedtime. [facility] omeprazole 2021-02 Yes [id number] 1{tbl} Take 1 [facility] 20 mg TbLD 2-09 tablet by [facility] 00:00: mouth [place] 00 daily. [facility] tolterodine 2021-02 Yes [id number] 2mg Take 1 [facility] [place] 2 mg 24 2-09 capsule by [facility] hr capsule 00:00: mouth [place] 00 daily. [facility] carvediloL 2021-02 Yes [id number] 6.25mg Take 1 [facility] 6.25 mg 2-09 tablet by [facility] tablet 00:00: mouth 2 (two) [facility] times [facility] daily with meals. atorvastati 2021-02 Yes [id number] 20mg Take 1 [facility] n 20 mg 2-09 tablet by [facility] tablet 00:00: mouth at [place] 00 bedtime. [facility] omeprazole 2021-02 Yes [id number] 1{tbl} Take 1 [facility] 20 mg TbLD 2-09 tablet by [facility] 00:00: mouth [place] 00 daily. [facility] tolterodine 2021-02 Yes [id number] 2mg Take 1 [facility] [place] 2 mg 24 2-09 capsule by [facility] hr capsule 00:00: mouth [place] 00 daily. [facility] carvediloL 2021-02 Yes [id number] 6.25mg Take 1 [facility] 6.25 mg 2-09 tablet by [facility] tablet 00:00: mouth 2 00 (two) [facility] times [facility] daily with meals. atorvastati 2021-02 Yes [id number] 20mg Take 1 [facility] 20 mg 2-09 tablet by [facility] tablet 00:00: mouth at [place] 00 bedtime. [facility] omeprazole 2021-02 Yes [id number] 1{tbl} Take 1 [facility] 20 mg TbLD 2-09 tablet by [facility] 00:00: mouth [place] 00 daily. [facility] tolterodine 2021-02 Yes [id number] 2mg Take 1 [facility] [place] 2 mg 24 2-09 capsule by [facility] hr capsule 00:00: mouth [place] 00 daily. [facility] carvediloL 2021-02 Yes [id number] 6.25mg Take 1 [facility] 6.25 mg 2-09 tablet by [facility] tablet 00:00: mouth 2 (two) [facility] times [facility] daily with meals. atorvastati 2021-02 Yes [id number] 20mg Take 1 [facility] 20 mg 2-09 tablet by [facility] tablet 00:00: mouth at [place] 00 bedtime. [facility] omeprazole 2021-02 Yes [id number] 1{tbl} Take 1 [facility] 20 mg TbLD 2-09 tablet by [facility] 00:00: mouth [place] 00 daily. [facility] tolterodine 2021-02 Yes [id number] 2mg Take 1 [facility] [place] 2 mg 24 2-09 capsule by [facility] hr capsule 00:00: mouth [place] 00 daily. [facility] carvediloL 2021-02 Yes [id number] 6.25mg Take 1 [facility] 6.25 mg 2-09 tablet by [facility] tablet 00:00: mouth 2 00 (two) [facility] times [facility] daily with meals. atorvastati 2021-02 Yes [id number] 20mg Take 1 [facility] 20 mg 2-09 tablet by [facility] tablet 00:00: mouth at [place] 00 bedtime. [facility] omeprazole 2021-02 Yes [id number] 1{tbl} Take 1 [facility] 20 mg TbLD 2-09 tablet by [facility] 00:00: mouth [place] 00 daily. [facility] tolterodine 2021-02 Yes [id number] 2mg Take 1 [facility] [place] 2 mg 24 2-09 capsule by [facility] hr capsule 00:00: mouth [place] 00 daily. [facility] carvediloL 2021-02 Yes [id number] 6.25mg Take 1 [facility] 6.25 mg 2-09 tablet by [facility] tablet 00:00: mouth 2 00 (two) [facility] times [facility] daily with meals. atorvastati 2021-02 Yes [id number] 20mg Take 1 [facility] 20 mg 2-09 tablet by [facility] tablet 00:00: mouth at [place] 00 bedtime. [facility] omeprazole 2021-02 Yes [id number] 1{tbl} Take 1 [facility] 20 mg TbLD 2-09 tablet by [facility] 00:00: mouth [place] 00 daily. [facility] tolterodine 2021-02 Yes [id number] 2mg Take 1 [facility] [place] 2 mg 24 2-09 capsule by [facility] hr capsule 00:00: mouth [place] 00 daily. [facility] carvediloL 2021-02 Yes [id number] 6.25mg Take 1 [facility] 6.25 mg 2-09 tablet by [facility] tablet 00:00: mouth 2 (two) [facility] times [facility] daily with meals. atorvastati 2021-02 Yes [id number] 20mg Take 1 [facility] 20 mg 2-09 tablet by [facility] tablet 00:00: mouth at [place] 00 bedtime. [facility] omeprazole 2021-02 Yes [id number] 1{tbl} Take 1 [facility] 20 mg TbLD 2-09 tablet by [facility] 00:00: mouth [place] 00 daily. [facility] tolterodine 2021-02 Yes [id number] 2mg Take 1 [facility] [place] 2 mg 24 2-09 capsule by [facility] hr capsule 00:00: mouth [place] 00 daily. [facility] carvediloL 2021-02 Yes [id number] 6.25mg Take 1 [facility] 6.25 mg 2-09 tablet by [facility] tablet 00:00: mouth 2 00 (two) [facility] times [facility] daily with meals. atorvastati 2021-02 Yes [id number] 20mg Take 1 [facility] 20 mg 2-09 tablet by [facility] tablet 00:00: mouth at [place] 00 bedtime. [facility] omeprazole 2021-02 Yes [id number] 1{tbl} Take 1 [facility] 20 mg TbLD 2-09 tablet by [facility] 00:00: mouth [place] 00 daily. [facility] tolterodine 2021-02 Yes [id number] 2mg Take 1 [facility] [place] 2 mg 24 2-09 capsule by [facility] hr capsule 00:00: mouth [place] 00 daily. [facility] carvediloL 2021-02 Yes [id number] 6.25mg Take 1 [facility] 6.25 mg 2-09 tablet by [facility] tablet 00:00: mouth 2 (two) [facility] times [facility] daily with meals. atorvastati 2021-02 Yes [id number] 20mg Take 1 [facility] 20 mg 2-09 tablet by [facility] tablet 00:00: mouth at [place] 00 bedtime. [facility] omeprazole 2021-02 Yes [id number] 1{tbl} Take 1 [facility] 20 mg TbLD 2-09 tablet by [facility] 00:00: mouth [place] 00 daily. [facility] tolterodine 2021-02 Yes [id number] 2mg Take 1 [facility] [place] 2 mg 24 2-09 capsule by [facility] hr capsule 00:00: mouth [place] 00 daily. [facility] carvediloL 2021-02 Yes [id number] 6.25mg Take 1 [facility] 6.25 mg 2-09 tablet by [facility] tablet 00:00: mouth 2 (two) [facility] times [facility] daily with meals. atorvastati 2021-02 Yes [id number] 20mg Take 1 [facility] 20 mg 2-09 tablet by [facility] tablet 00:00: mouth at [place] 00 bedtime. [facility] tolterodine 2021-02 Yes [id number] 2mg Take 1 [facility] [place] 2 mg 24 2-09 capsule by [facility] hr capsule 00:00: mouth [place] 00 daily. [facility] carvediloL 2021-02 Yes [id number] 6.25mg Take 1 [facility] 6.25 mg 2-09 tablet by [facility] tablet 00:00: mouth 2 00 (two) [facility] times [facility] daily with meals. atorvastati 2021-02 Yes [id number] 20mg Take 1 [facility] 20 mg 2-09 tablet by [facility] tablet 00:00: mouth at [place] 00 bedtime. [facility] tolterodine 2021-02 Yes [id number] 2mg Take 1 [facility] [place] 2 mg 24 2-09 capsule by [facility] hr capsule 00:00: mouth [place] 00 daily. [facility] carvediloL 2021-02 Yes [id number] 6.25mg Take 1 [facility] 6.25 mg 2-09 tablet by [facility] tablet 00:00: mouth 2 (two) [facility] times [facility] daily with meals. atorvastati 2021-02 Yes [id number] 20mg Take 1 [facility] 20 mg 2-09 tablet by [facility] tablet 00:00: mouth at [place] 00 bedtime. [facility] tolterodine 2021-02 Yes [id number] 2mg Take 1 [facility] [place] 2 mg 24 2-09 capsule by [facility] hr capsule 00:00: mouth 00 daily. [facility] carvediloL 2021-02 Yes [id number] 6.25mg Take 1 [facility] 6.25 mg 2-09 tablet by [facility] tablet 00:00: mouth 2 (two) [facility] times [facility] daily with meals. atorvastati 2021-02 Yes [id number] 20mg Take 1 [facility] 20 mg 2-09 tablet by [facility] tablet 00:00: mouth at [place] 00 bedtime. [facility] tolterodine 2021-02 Yes [id number] 2mg Take 1 [facility] [place] 2 mg 24 2-09 capsule by [facility] hr capsule 00:00: mouth [place] 00 daily. [facility] carvediloL 2021-02 Yes [id number] 6.25mg Take 1 [facility] 6.25 mg 2-09 tablet by [facility] tablet 00:00: mouth 2 (two) [facility] times [facility] daily with meals. atorvastati 2021-02 Yes [id number] 20mg Take 1 [facility] 20 mg 2-09 tablet by [facility] tablet 00:00: mouth at [place] 00 bedtime. [facility] tolterodine 2021-02 Yes [id number] 2mg Take 1 [facility] [place] 2 mg 24 2-09 capsule by [facility] hr capsule 00:00: mouth [place] 00 daily. [facility] carvediloL 2021-02 Yes [id number] 6.25mg Take 1 [facility] 6.25 mg 2-09 tablet by [facility] tablet 00:00: mouth 2 (two) [facility] times [facility] daily with meals. atorvastati 2021-02 Yes [id number] 20mg Take 1 [facility] 20 mg 2-09 tablet by [facility] tablet 00:00: mouth at [place] 00 bedtime. [facility] tolterodine 2021-02 Yes [id number] 2mg Take 1 [facility] [place] 2 mg 24 2-09 capsule by [facility] hr capsule 00:00: mouth 00 daily. [facility] carvediloL 2021-02 Yes [id number] 6.25mg Take 1 [facility] 6.25 mg 2-09 tablet by [facility] tablet 00:00: mouth 2 (two) [facility] times [facility] daily with meals. atorvastati 2021-02 Yes [id number] 20mg Take 1 [facility] 20 mg 2-09 tablet by [facility] tablet 00:00: mouth at [place] 00 bedtime. [facility] tolterodine 2021-02 Yes [id number] 2mg Take 1 [facility] [place] 2 mg 24 2-09 capsule by [facility] hr capsule 00:00: mouth 00 daily. [facility] carvediloL 2021-02 Yes [id number] 6.25mg Take 1 [facility] 6.25 mg 2-09 tablet by [facility] tablet 00:00: mouth 2 (two) [facility] times [facility] daily with meals. atorvastati 2021-02 Yes [id number] 20mg Take 1 [facility] 20 mg 2-09 tablet by [facility] tablet 00:00: mouth at [place] 00 bedtime. [facility] tolterodine 2021-02 Yes [id number] 2mg Take 1 [facility] [place] 2 mg 24 2-09 capsule by [facility] hr capsule 00:00: mouth 00 daily. [facility] carvediloL 2021-02 Yes [id number] 6.25mg Take 1 [facility] 6.25 mg 2-09 tablet by [facility] tablet 00:00: mouth 2 (two) [facility] times [facility] daily with meals. atorvastati 2021-02 Yes [id number] 20mg Take 1 [facility] 20 mg 2-09 tablet by [facility] tablet 00:00: mouth at [place] 00 bedtime. [facility] tolterodine 2021-02 Yes [id number] 2mg Take 1 [facility] [place] 2 mg 24 2-09 capsule by [facility] hr capsule 00:00: mouth 00 daily. [facility] carvediloL 2021-02 Yes [id number] 6.25mg Take 1 [facility] 6.25 mg 2-09 tablet by [facility] tablet 00:00: mouth 2 00 (two) [facility] times [facility] daily with meals. atorvastati 2021-02 Yes [id number] 20mg Take 1 [facility] 20 mg 2-09 tablet by [facility] tablet 00:00: mouth at [place] 00 bedtime. [facility] tolterodine 2021-02 Yes [id number] 2mg Take 1 [facility] [place] 2 mg 24 2-09 capsule by [facility] hr capsule 00:00: mouth [place] 00 daily. [facility] carvediloL 2021-02 Yes [id number] 6.25mg Take 1 [facility] 6.25 mg 2-09 tablet by [facility] tablet 00:00: mouth 2 00 (two) [facility] times [facility] daily with meals. atorvastati 2021-02 Yes [id number] 20mg Take 1 [facility] 20 mg 2-09 tablet by [facility] tablet 00:00: mouth at [place] 00 bedtime. [facility] tolterodine 2021-02 Yes [id number] 2mg Take 1 [facility] [place] 2 mg 24 2-09 capsule by [facility] hr capsule 00:00: mouth 00 daily. [facility] carvediloL 2021-02 Yes [id number] 6.25mg Take 1 [facility] 6.25 mg 2-09 tablet by [facility] tablet 00:00: mouth 2 00 (two) [facility] times [facility] daily with meals. atorvastati 2021-02 Yes [id number] 20mg Take 1 [facility] 20 mg 2-09 tablet by [facility] tablet 00:00: mouth at [place] 00 bedtime. [facility] tolterodine 2021-02 Yes [id number] 2mg Take 1 [facility] [place] 2 mg 24 2-09 capsule by [facility] hr capsule 00:00: mouth [place] 00 daily. [facility] carvediloL 2021-02 Yes [id number] 6.25mg Take 1 [facility] 6.25 mg 2-09 tablet by [facility] tablet 00:00: mouth 2 00 (two) [facility] times [facility] daily with meals. atorvastati 2021-02 Yes [id number] 20mg Take 1 [facility] 20 mg 2-09 tablet by [facility] tablet 00:00: mouth at [place] 00 bedtime. [facility] tolterodine 2021-02 Yes [id number] 2mg Take 1 [facility] [place] 2 mg 24 2-09 capsule by [facility] hr capsule 00:00: mouth [place] 00 daily. [facility] carvediloL 2021-02 Yes [id number] 6.25mg Take 1 [facility] 6.25 mg 2-09 tablet by [facility] tablet 00:00: mouth 2 (two) [facility] times [facility] daily with meals. atorvastati 2021-02 Yes [id number] 20mg Take 1 [facility] 20 mg 2-09 tablet by [facility] tablet 00:00: mouth at 00 bedtime. [facility] tolterodine 2021-02 Yes [id number] 2mg Take 1 [facility] [place] 2 mg 24 2-09 capsule by [facility] hr capsule 00:00: mouth 00 daily. [facility] carvediloL 2021-02 Yes [id number] 6.25mg Take 1 [facility] 6.25 mg 2-09 tablet by [facility] tablet 00:00: mouth 2 (two) [facility] times [facility] daily with meals. atorvastati 2021-02 Yes [id number] 20mg Take 1 [facility] 20 mg 2-09 tablet by [facility] tablet 00:00: mouth at bedtime. [facility] tolterodine 2021-02 Yes [id number] 2mg Take 1 [facility] [place] 2 mg 24 2-09 capsule by [facility] hr capsule 00:00: mouth 00 daily. [facility] carvediloL 2021-02 Yes [id number] 6.25mg Take 1 [facility] 6.25 mg 2-09 tablet by [facility] tablet 00:00: mouth 2 (two) [facility] times [facility] daily with meals. atorvastati 2021-02 Yes [id number] 20mg Take 1 [facility] 20 mg 2-09 tablet by [facility] tablet 00:00: mouth at [place] 00 bedtime. [facility] tolterodine 2021-02 Yes [id number] 2mg Take 1 [facility] [place] 2 mg 24 2-09 capsule by [facility] hr capsule 00:00: mouth 00 daily. [facility] carvediloL 2021-02 Yes [id number] 6.25mg Take 1 [facility] 6.25 mg 2-09 tablet by [facility] tablet 00:00: mouth 2 (two) [facility] times [facility] daily with meals. atorvastati 2021-02 Yes [id number] 20mg Take 1 [facility] 20 mg 2-09 tablet by [facility] tablet 00:00: mouth at 00 bedtime. [facility] tolterodine 2021-02 Yes [id number] 2mg Take 1 [facility] [place] 2 mg 24 2-09 capsule by [facility] hr capsule 00:00: mouth [place] 00 daily. [facility] carvediloL 2021-02 Yes [id number] 6.25mg Take 1 [facility] 6.25 mg 2-09 tablet by [facility] tablet 00:00: mouth 2 00 (two) [facility] times [facility] daily with meals. atorvastati 2021-02 Yes [id number] 20mg Take 1 [facility] 20 mg 2-09 tablet by [facility] tablet 00:00: mouth at [place] 00 bedtime. [facility] tolterodine 2021-02 Yes [id number] 2mg Take 1 [facility] [place] 2 mg 24 2-09 capsule by [facility] hr capsule 00:00: mouth [place] 00 daily. [facility] carvediloL 2021-02 Yes [id number] 6.25mg Take 1 [facility] 6.25 mg 2-09 tablet by [facility] tablet 00:00: mouth 2 00 (two) [facility] times [facility] daily with meals. atorvastati 2021-02 Yes [id number] 20mg Take 1 [facility] 20 mg 2-09 tablet by [facility] tablet 00:00: mouth at [place] 00 bedtime. [facility] tolterodine 2021-02 Yes [id number] 2mg Take 1 [facility] [place] 2 mg 24 2-09 capsule by [facility] hr capsule 00:00: mouth [place] 00 daily. [facility] carvediloL 2021-02 Yes [id number] 6.25mg Take 1 [facility] 6.25 mg 2-09 tablet by [facility] tablet 00:00: mouth 2 (two) [facility] times [facility] daily with meals. atorvastati 2021-02 Yes [id number] 20mg Take 1 [facility] 20 mg 2-09 tablet by [facility] tablet 00:00: mouth at [place] 00 bedtime. [facility] tolterodine 2021-02 Yes [id number] 2mg Take 1 [facility] [place] 2 mg 24 2-09 capsule by [facility] hr capsule 00:00: mouth [place] 00 daily. [facility] carvediloL 2021-02 Yes [id number] 6.25mg Take 1 [facility] 6.25 mg 2-09 tablet by [facility] tablet 00:00: mouth 2 00 (two) [facility] times [facility] daily with meals. tolterodine 2021-02 Yes [id number] 2mg Take 1 [facility] 2 mg 24 2-09 capsule by [facility] hr capsule 00:00: mouth [place] 00 daily. [facility] carvediloL 2021-02 Yes [id number] 6.25mg Take 1 [facility] 6.25 mg 2-09 tablet by [facility] tablet 00:00: mouth 2 (two) [facility] times [facility] daily with meals. tolterodine 2021-02 Yes [id number] 2mg Take 1 [facility] 2 mg 24 2-09 capsule by [facility] hr capsule 00:00: mouth [place] 00 daily. [facility] carvediloL 2021-02 Yes [id number] 6.25mg Take 1 [facility] 6.25 mg 2-09 tablet by [facility] tablet 00:00: mouth 2 (two) [facility] times [facility] daily with meals. tolterodine 2021-02 Yes [id number] 2mg Take 1 [facility] [place] 2 mg 24 2-09 capsule by [facility] hr capsule 00:00: mouth [place] 00 daily. [facility] carvediloL 2021-02 Yes [id number] 6.25mg Take 1 [facility] 6.25 mg 2-09 tablet by [facility] tablet 00:00: mouth (two) [facility] times [facility] daily with meals. tolterodine 2021-02 Yes [id number] 2mg Take 1 [facility] 2 mg 24 2-09 capsule by [facility] hr capsule 00:00: mouth [place] 00 daily. [facility] carvediloL 2021-02 Yes [id number] 6.25mg Take 1 [facility] 6.25 mg 2-09 tablet by [facility] tablet 00:00: mouth (two) [facility] times [facility] daily with meals. tolterodine 2021-02 Yes [id number] 2mg Take 1 [facility] 2 mg 24 2-09 capsule by [facility] hr capsule 00:00: mouth [place] 00 daily. [facility] carvediloL 2021-02 Yes [id number] 6.25mg Take 1 [facility] 6.25 mg 2-09 tablet by [facility] tablet 00:00: mouth 2 (two) [facility] times [facility] daily with meals. tolterodine 2021-02 Yes [id number] 2mg Take 1 [facility] [place] 2 mg 24 2-09 capsule by [facility] hr capsule 00:00: mouth [place] 00 daily. [facility] carvediloL 2021-02 Yes [id number] 6.25mg Take 1 [facility] 6.25 mg 2-09 tablet by [facility] tablet 00:00: mouth (two) [facility] times [facility] daily with meals. tolterodine 2021-02 Yes [id number] 2mg Take 1 [facility] 2 mg 24 2-09 capsule by [facility] hr capsule 00:00: mouth 00 daily. [facility] carvediloL 2021-02 Yes [id number] 6.25mg Take 1 [facility] 6.25 mg 2-09 tablet by [facility] tablet 00:00: mouth (two) [facility] times [facility] daily with meals. tolterodine 2021-02 Yes [id number] 2mg Take 1 [facility] 2 mg 24 2-09 capsule by [facility] hr capsule 00:00: mouth 00 daily. [facility] carvediloL 2021-02 Yes [id number] 6.25mg Take 1 [facility] 6.25 mg 2-09 tablet by [facility] tablet 00:00: mouth (two) [facility] times [facility] daily with meals. tolterodine 2021-02 Yes [id number] 2mg Take 1 [facility] 2 mg 24 2-09 capsule by [facility] hr capsule 00:00: mouth 00 daily. [facility] carvediloL 2021-02 Yes [id number] 6.25mg Take 1 [facility] 6.25 mg 2-09 tablet by [facility] tablet 00:00: mouth (two) [facility] times [facility] daily with meals. tolterodine 2021-02 Yes [id number] 2mg Take 1 [facility] 2 mg 24 2-09 capsule by [facility] hr capsule 00:00: mouth 00 daily. [facility] carvediloL 2021-02 Yes [id number] 6.25mg Take 1 [facility] 6.25 mg 2-09 tablet by [facility] tablet 00:00: mouth (two) [facility] times [facility] daily with meals. tolterodine 2021-02 Yes [id number] 2mg Take 1 [facility] 2 mg 24 2-09 capsule by [facility] hr capsule 00:00: mouth 00 daily. [facility] carvediloL 2021-02 Yes [id number] 6.25mg Take 1 [facility] 6.25 mg 2-09 tablet by [facility] tablet 00:00: mouth (two) [facility] times [facility] daily with meals. tolterodine 2021-02 Yes [id number] 2mg Take 1 [facility] 2 mg 24 2-09 capsule by [facility] hr capsule 00:00: mouth [place] 00 daily. [facility] carvediloL 2021-02 Yes [id number] 6.25mg Take 1 [facility] 6.25 mg 2-09 tablet by [facility] tablet 00:00: mouth 2 (two) [facility] times [facility] daily with meals. tolterodine 2021-02 Yes [id number] 2mg Take 1 [facility] 2 mg 24 2-09 capsule by [facility] hr capsule 00:00: mouth [place] 00 daily. [facility] carvediloL 2021-02 Yes [id number] 6.25mg Take 1 [facility] 6.25 mg 2-09 tablet by [facility] tablet 00:00: mouth 2 00 (two) [facility] times [facility] daily with meals. tolterodine 2021-02 Yes [id number] 2mg Take 1 [facility] 2 mg 24 2-09 capsule by [facility] hr capsule 00:00: mouth [place] 00 daily. [facility] carvediloL 2021-02 Yes [id number] 6.25mg Take 1 [facility] 6.25 mg 2-09 tablet by [facility] tablet 00:00: mouth (two) [facility] times [facility] daily with meals. tolterodine 2021-02 Yes [id number] 2mg Take 1 [facility] 2 mg 24 2-09 capsule by [facility] hr capsule 00:00: mouth [place] 00 daily. [facility] carvediloL 2021-02 Yes [id number] 6.25mg Take 1 [facility] 6.25 mg 2-09 tablet by [facility] tablet 00:00: mouth (two) [facility] times [facility] daily with meals. tolterodine 2021-02 Yes [id number] 2mg Take 1 [facility] 2 mg 24 2-09 capsule by [facility] hr capsule 00:00: mouth [place] 00 daily. [facility] carvediloL 2021-02 Yes [id number] 6.25mg Take 1 [facility] 6.25 mg 2-09 tablet by [facility] tablet 00:00: mouth 2 00 (two) [facility] times [facility] daily with meals. tolterodine 2021-02 Yes [id number] 2mg Take 1 [facility] 2 mg 24 2-09 capsule by [facility] hr capsule 00:00: mouth [place] 00 daily. [facility] carvediloL 2021-02 Yes [id number] 6.25mg Take 1 [facility] 6.25 mg 2-09 tablet by [facility] tablet 00:00: mouth (two) [facility] times [facility] daily with meals. tolterodine 2021-02 Yes [id number] 2mg Take 1 [facility] 2 mg 24 2-09 capsule by [facility] hr capsule 00:00: mouth [place] 00 daily. [facility] carvediloL 2021-02 Yes [id number] 6.25mg Take 1 [facility] 6.25 mg 2-09 tablet by [facility] tablet 00:00: mouth (two) [facility] times [facility] daily with meals. tolterodine 2021-02 Yes [id number] 2mg Take 1 [facility] 2 mg 24 2-09 capsule by [facility] hr capsule 00:00: mouth 00 daily. [facility] carvediloL 2021-02 Yes [id number] 6.25mg Take 1 [facility] 6.25 mg 2-09 tablet by [facility] tablet 00:00: mouth (two) [facility] times [facility] daily with meals. tolterodine 2021-02 Yes [id number] 2mg Take 1 [facility] 2 mg 24 2-09 capsule by [facility] hr capsule 00:00: mouth 00 daily. [facility] carvediloL 2021-02 Yes [id number] 6.25mg Take 1 [facility] 6.25 mg 2-09 tablet by [facility] tablet 00:00: mouth (two) [facility] times [facility] daily with meals. tolterodine 2021-02 Yes [id number] 2mg Take 1 [facility] 2 mg 24 2-09 capsule by [facility] hr capsule 00:00: mouth 00 daily. [facility] carvediloL 2021-02 Yes [id number] 6.25mg Take 1 [facility] 6.25 mg 2-09 tablet by [facility] tablet 00:00: mouth (two) [facility] times [facility] daily with meals. tolterodine 2021-02 Yes [id number] 2mg Take 1 [facility] 2 mg 24 2-09 capsule by [facility] hr capsule 00:00: mouth 00 daily. [facility] carvediloL 2021-02 Yes [id number] 6.25mg Take 1 [facility] 6.25 mg 2-09 tablet by [facility] tablet 00:00: mouth (two) [facility] times [facility] daily with meals. tolterodine 2021-02 Yes [id number] 2mg Take 1 [facility] 2 mg 24 2-09 capsule by [facility] hr capsule 00:00: mouth [place] 00 daily. [facility] carvediloL 2021-02 Yes [id number] 6.25mg Take 1 [facility] 6.25 mg 2-09 tablet by [facility] tablet 00:00: mouth 2 (two) [facility] times [facility] daily with meals. tolterodine 2021-02 Yes [id number] 2mg Take 1 [facility] 2 mg 24 2-09 capsule by [facility] hr capsule 00:00: mouth [place] 00 daily. [facility] carvediloL 2021-02 Yes [id number] 6.25mg Take 1 [facility] 6.25 mg 2-09 tablet by [facility] tablet 00:00: mouth (two) [facility] times [facility] daily with meals. tolterodine 2021-02 Yes [id number] 2mg Take 1 [facility] 2 mg 24 2-09 capsule by [facility] hr capsule 00:00: mouth [place] 00 daily. [facility] carvediloL 2021-02 Yes [id number] 6.25mg Take 1 [facility] 6.25 mg 2-09 tablet by [facility] tablet 00:00: mouth (two) [facility] times [facility] daily with meals. tolterodine 2021-02 Yes [id number] 2mg Take 1 [facility] 2 mg 24 2-09 capsule by [facility] hr capsule 00:00: mouth [place] 00 daily. [facility] carvediloL 2021-02 Yes [id number] 6.25mg Take 1 [facility] 6.25 mg 2-09 tablet by [facility] tablet 00:00: mouth (two) [facility] times [facility] daily with meals. tolterodine 2021-02 Yes [id number] 2mg Take 1 [facility] 2 mg 24 2-09 capsule by [facility] hr capsule 00:00: mouth [place] 00 daily. [facility] carvediloL 2021-02 Yes [id number] 6.25mg Take 1 [facility] 6.25 mg 2-09 tablet by [facility] tablet 00:00: mouth 2 (two) [facility] times [facility] daily with meals. tolterodine 2021-02 Yes [id number] 2mg Take 1 [facility] 2 mg 24 2-09 capsule by [facility] hr capsule 00:00: mouth [place] 00 daily. [facility] carvediloL 2021-02 Yes [id number] 6.25mg Take 1 [facility] 6.25 mg 2-09 tablet by [facility] tablet 00:00: mouth (two) [facility] times [facility] daily with meals. tolterodine 2021-02 Yes [id number] 2mg Take 1 [facility] 2 mg 24 2-09 capsule by [facility] hr capsule 00:00: mouth [place] 00 daily. [facility] carvediloL 2021-02 Yes [id number] 6.25mg Take 1 [facility] 6.25 mg 2-09 tablet by [facility] tablet 00:00: mouth (two) [facility] times [facility] daily with meals. tolterodine 2021-02 Yes [id number] 2mg Take 1 [facility] 2 mg 24 2-09 capsule by [facility] hr capsule 00:00: mouth 00 daily. [facility] carvediloL 2021-02 Yes [id number] 6.25mg Take 1 [facility] 6.25 mg 2-09 tablet by [facility] tablet 00:00: mouth (two) [facility] times [facility] daily with meals. tolterodine 2021-02 Yes [id number] 2mg Take 1 [facility] 2 mg 24 2-09 capsule by [facility] hr capsule 00:00: mouth 00 daily. [facility] carvediloL 2021-02 Yes [id number] 6.25mg Take 1 [facility] 6.25 mg 2-09 tablet by [facility] tablet 00:00: mouth (two) [facility] times [facility] daily with meals. tolterodine 2021-02 Yes [id number] 2mg Take 1 [facility] 2 mg 24 2-09 capsule by [facility] hr capsule 00:00: mouth 00 daily. [facility] carvediloL 2021-02 Yes [id number] 6.25mg Take 1 [facility] 6.25 mg 2-09 tablet by [facility] tablet 00:00: mouth (two) [facility] times [facility] daily with meals. tolterodine 2021-02 Yes [id number] 2mg Take 1 [facility] 2 mg 24 2-09 capsule by [facility] hr capsule 00:00: mouth 00 daily. [facility] carvediloL 2021-02 Yes [id number] 6.25mg Take 1 [facility] 6.25 mg 2-09 tablet by [facility] tablet 00:00: mouth (two) [facility] times [facility] daily with meals. tolterodine 2022-1 Yes [id number] 2mg Take 1 [facility] 2 mg 24 2-09 capsule by [facility] hr capsule 00:00: mouth [place] 00 daily. [facility] carvediloL 2021-02 Yes [id number] 6.25mg Take 1 [facility] 6.25 mg 2-09 tablet by [facility] tablet 00:00: mouth 2 (two) [facility] times [facility] daily with meals. tolterodine 2021-02 Yes [id number] 2mg Take 1 [facility] 2 mg 24 2-09 capsule by [facility] hr capsule 00:00: mouth [place] 00 daily. [facility] carvediloL 2021-02 Yes [id number] 6.25mg Take 1 [facility] 6.25 mg 2-09 tablet by [facility] tablet 00:00: mouth 2 (two) [facility] times [facility] daily with meals. tolterodine 2021-02 Yes [id number] 2mg Take 1 [facility] [place] 2 mg 24 2-09 capsule by [facility] hr capsule 00:00: mouth [place] 00 daily. [facility] carvediloL 2021-02 Yes [id number] 6.25mg Take 1 [facility] 6.25 mg 2-09 tablet by [facility] tablet 00:00: mouth 2 (two) Medical times [facility] daily with meals. tolterodine 2021-02 Yes [id number] 2mg Take 1 [facility] [place] 2 mg 24 2-09 capsule by [facility] hr capsule 00:00: mouth [place] 00 daily. [facility] tolterodine 2021-02 Yes [id number] 2mg Take 1 [facility] [place] 2 mg 24 2-09 capsule by [facility] capsule 00:00: mouth [place] 00 daily. [facility] tolterodine 2021-02 Yes [id number] 2mg Take 1 [facility] [place] 2 mg 24 2-09 capsule by [facility] capsule 00:00: mouth [place] 00 daily. [facility] tolterodine 2021-02 Yes [id number] 2mg Take 1 [facility] [place] 2 mg 24 2-09 capsule by [facility] capsule 00:00: mouth [place] 00 daily. [facility] tolterodine 2021-02 Yes [id number] 2mg Take 1 [facility] [place] 2 mg 24 2-09 capsule by [facility] capsule 00:00: mouth [place] 00 daily. [facility] tolterodine 2021-02 Yes [id number] 2mg Take 1 [facility] [place] 2 mg 24 2-09 capsule by [facility] capsule 00:00: mouth [place] 00 daily. [facility] tolterodine 2021-02 Yes [id number] 2mg Take 1 [facility] [place] 2 mg 24 2-09 capsule by [facility] hr capsule 00:00: mouth [place] 00 daily. [facility] tolterodine 2021-02 Yes [id number] 2mg Take 1 [facility] [place] 2 mg 24 2-09 capsule by [facility] hr capsule 00:00: mouth [place] 00 daily. [facility] tolterodine 2021-02 Yes [id number] 2mg Take 1 [facility] [place] 2 mg 24 2-09 capsule by [facility] capsule 00:00: mouth [place] 00 daily. [facility] tolterodine 2021-02 Yes [id number] 2mg Take 1 [facility] [place] 2 mg 24 2-09 capsule by [facility] capsule 00:00: mouth [place] 00 daily. [facility] tolterodine 2021-02 Yes [id number] 2mg Take 1 [facility] [place] 2 mg 24 2-09 capsule by [facility] capsule 00:00: mouth [place] 00 daily. [facility] tolterodine 2021-02 Yes [id number] 2mg Take 1 [facility] [place] 2 mg 24 2-09 capsule by [facility] capsule 00:00: mouth [place] 00 daily. [facility] tolterodine 2021-02 Yes [id number] 2mg Take 1 [facility] [place] 2 mg 24 2-09 capsule by [facility] capsule 00:00: mouth [place] 00 daily. [facility] tolterodine 2021-02 Yes [id number] 2mg Take 1 [facility] [place] 2 mg 24 2-09 capsule by [facility] capsule 00:00: mouth [place] 00 daily. [facility] tolterodine 2021-02 Yes [id number] 2mg Take 1 [facility] [place] 2 mg 24 2-09 capsule by [facility] capsule 00:00: mouth [place] 00 daily. [facility] tolterodine 2021-02 Yes [id number] 2mg Take 1 [facility] [place] 2 mg 24 2-09 capsule by [facility] capsule 00:00: mouth [place] 00 daily. [facility] tolterodine 2021-02 Yes [id number] 2mg Take 1 [facility] [place] 2 mg 24 2-09 capsule by [facility] capsule 00:00: mouth [place] 00 daily. [facility] tolterodine 2021-02 Yes [id number] 2mg Take 1 [facility] [place] 2 mg 24 2-09 capsule by [facility] capsule 00:00: mouth [place] 00 daily. [facility] tolterodine 2021-02 Yes [id number] 2mg Take 1 [facility] [place] 2 mg 24 2-09 capsule by [facility] capsule 00:00: mouth [place] 00 daily. [facility] tolterodine 2021-02 Yes [id number] 2mg Take 1 [facility] [place] 2 mg 24 2-09 capsule by [facility] capsule 00:00: mouth [place] 00 daily. [facility] tolterodine 2021-02 Yes [id number] 2mg Take 1 [facility] [place] 2 mg 24 2-09 capsule by [facility] hr capsule 00:00: mouth [place] 00 daily. [facility] tolterodine 2021-02 Yes [id number] 2mg Take 1 [facility] 2 mg 24 2-09 capsule by [facility] capsule 00:00: mouth [place] 00 daily. [facility] tolterodine 2021-02 Yes [id number] 2mg Take 1 [facility] [place] 2 mg 24 2-09 capsule by [facility] capsule 00:00: mouth [place] 00 daily. [facility] tolterodine 2021-02 Yes [id number] 2mg Take 1 [facility] [place] 2 mg 24 2-09 capsule by [facility] capsule 00:00: mouth [place] 00 daily. [facility] tolterodine 2021-02 Yes [id number] 2mg Take 1 [facility] [place] 2 mg 24 2-09 capsule by [facility] hr capsule 00:00: mouth [place] 00 daily. [facility] tolterodine 2021-02 Yes [id number] 2mg Take 1 [facility] [place] 2 mg 24 2-09 capsule by [facility] hr capsule 00:00: mouth [place] 00 daily. [facility] tolterodine 2021-02 Yes [id number] 2mg Take 1 [facility] [place] 2 mg 24 2-09 capsule by [facility] capsule 00:00: mouth [place] 00 daily. [facility] tolterodine 2021-02 Yes [id number] 2mg Take 1 [facility] [place] 2 mg 24 2-09 capsule by [facility] hr capsule 00:00: mouth [place] 00 daily. [facility] tolterodine 2021-02 Yes [id number] 2mg Take 1 [facility] [place] 2 mg 24 2-09 capsule by [facility] capsule 00:00: mouth [place] 00 daily. [facility] tolterodine 2021-02 Yes [id number] 2mg Take 1 [facility] [place] 2 mg 24 2-09 capsule by [facility] capsule 00:00: mouth [place] 00 daily. [facility] tolterodine 2021-02 Yes [id number] 2mg Take 1 [facility] [place] 2 mg 24 2-09 capsule by [facility] capsule 00:00: mouth [place] 00 daily. [facility] tolterodine 2021-02 Yes [id number] 2mg Take 1 [facility] [place] 2 mg 24 2-09 capsule by [facility] capsule 00:00: mouth [place] 00 daily. [facility] tolterodine 2021-02 Yes [id number] 2mg Take 1 [facility] [place] 2 mg 24 2-09 capsule by [facility] capsule 00:00: mouth [place] 00 daily. [facility] tolterodine 2021-02 Yes [id number] 2mg Take 1 [facility] [place] 2 mg 24 2-09 capsule by [facility] hr capsule 00:00: mouth [place] 00 daily. [facility] tolterodine 2021-02 Yes [id number] 2mg Take 1 [facility] [place] 2 mg 24 2-09 capsule by [facility] capsule 00:00: mouth [place] 00 daily. [facility] tolterodine 2021-02 Yes [id number] 2mg Take 1 [facility] [place] 2 mg 24 2-09 capsule by [facility] capsule 00:00: mouth [place] 00 daily. [facility] tolterodine 2021-02 Yes [id number] 2mg Take 1 [facility] [place] 2 mg 24 2-09 capsule by [facility] capsule 00:00: mouth [place] 00 daily. [facility] tolterodine 2021-02 Yes [id number] 2mg Take 1 [facility] [place] 2 mg 24 2-09 capsule by [facility] capsule 00:00: mouth [place] 00 daily. [facility] tolterodine 2021-02 Yes [id number] 2mg Take 1 [facility] [place] 2 mg 24 2-09 capsule by [facility] capsule 00:00: mouth [place] 00 daily. [facility] tolterodine 2021-02 Yes [id number] 2mg Take 1 [facility] [place] 2 mg 24 2-09 capsule by [facility] capsule 00:00: mouth [place] 00 daily. [facility] tolterodine 2021-02 Yes [id number] 2mg Take 1 [facility] [place] 2 mg 24 2-09 capsule by [facility] capsule 00:00: mouth [place] 00 daily. [facility] tolterodine 2021-02 Yes [id number] 2mg Take 1 [facility] [place] 2 mg 24 2-09 capsule by [facility] capsule 00:00: mouth [place] 00 daily. [facility] tolterodine 2021-02 Yes [id number] 2mg Take 1 [facility] [place] 2 mg 24 2-09 capsule by [facility] hr capsule 00:00: mouth [place] 00 daily. [facility] tolterodine 2021-02 Yes [id number] 2mg Take 1 [facility] [place] 2 mg 24 2-09 capsule by [facility] capsule 00:00: mouth [place] 00 daily. [facility] tolterodine 2021-02 Yes [id number] 2mg Take 1 [facility] [place] 2 mg 24 2-09 capsule by [facility] hr capsule 00:00: mouth [place] 00 daily. [facility] tolterodine 2021-02 Yes [id number] 2mg Take 1 [facility] [place] 2 mg 24 2-09 capsule by [facility] hr capsule 00:00: mouth [place] 00 daily. [facility] tolterodine 2021-02 Yes [id number] 2mg Take 1 [facility] [place] 2 mg 24 2-09 capsule by [facility] hr capsule 00:00: mouth [place] 00 daily. [facility] tolterodine 2021-02 Yes [id number] 2mg Take 1 [facility] [place] 2 mg 24 2-09 capsule by [facility] capsule 00:00: mouth [place] 00 daily. [facility] tolterodine 2021-02 Yes [id number] 2mg Take 1 [facility] [place] 2 mg 24 2-09 capsule by [facility] hr capsule 00:00: mouth [place] 00 daily. [facility] tolterodine 2021-02 Yes [id number] 2mg Take 1 [facility] [place] 2 mg 24 2-09 capsule by [facility] hr capsule 00:00: mouth [place] 00 daily. [facility] tolterodine 2021-02 Yes [id number] 2mg Take 1 [facility] [place] 2 mg 24 2-09 capsule by [facility] hr capsule 00:00: mouth [place] 00 daily. [facility] tolterodine 2021-02 Yes [id number] 2mg Take 1 [facility] [place] 2 mg 24 2-09 capsule by [facility] hr capsule 00:00: mouth [place] 00 daily. [facility] tolterodine 2021-02 Yes [id number] 2mg Take 1 [facility] [place] 2 mg 24 2-09 capsule by [facility] hr capsule 00:00: mouth [place] 00 daily. [facility] tolterodine 2021-02 Yes [id number] 2mg Take 1 [facility] [place] 2 mg 24 2-09 capsule by [facility] hr capsule 00:00: mouth [place] 00 daily. [facility] carvediloL 2021-02 2023- No [id number] 6.25mg Take 1 [facility] 6.25 mg 2-09 06-27 tablet by [facility] tablet 00:00: 00:00 mouth 2 [place] 00 :00 (two) Medical times [facility] daily with meals. carvediloL 2021-02- No [id number] 6.25mg Take 1 [facility] 6.25 mg 03-24 tablet by [facility] tablet 00:00: 00:00 mouth 2 [place] 00 :00 (two) Medical times [facility] daily with meals. carvediloL 2021-02- No [id number] 6.25mg Take 1 [facility] 6.25 mg 03-24 tablet by [facility] tablet 00:00: 00:00 mouth 2 [place] 00 :00 (two) Medical times [facility] daily with meals. atorvastati 2021-02- No [id number] 20mg Take 1 [facility] n 20 mg 03-24 tablet by [facility] of tablet 00:00: 00:00 mouth at [place] 00 :00 bedtime. [facility] atorvastati 2021-02- No [id number] 20mg Take 1 [facility] n 20 mg 03-24 tablet by [facility] of tablet 00:00: 00:00 mouth at [place] 00 :00 bedtime. [facility] atorvastati 2021-02- No [id number] 20mg Take 1 [facility] n 20 mg 03-24 tablet by [facility] of tablet 00:00: 00:00 mouth at [place] 00 :00 bedtime. [facility] carvediloL 2021-02 Yes [id number] 12.5mg Take 1 [facility] 12.5 mg 1-11 tablet by [facility] of tablet 00:00: mouth 2 [place] 00 (two) Medical times [facility] daily with meals. Additional refills per cardio carvediloL 2021-02 Yes [id number] 12.5mg Take 1 [facility] 12.5 mg 1-11 tablet by [facility] of tablet 00:00: mouth 2 [place] 00 (two) Medical times [facility] daily with meals. Additional refills per cardio carvediloL 2021-02- No [id number] 12.5mg Take 1 [facility] 12.5 mg 1-11 - tablet by [facility] of tablet 00:00: 00:00 mouth 2 [place] 00 :00 (two) Medical times [facility] daily with meals. Additional refills per cardio carvediloL 2021-02 No [id number] 12.5mg Take 1 [facility] 12.5 mg 02-23 12-09 tablet by [facility] tablet 00:00: [...] Take 1 [facility] 500 [facility] 24 02-21 tablet by [facility] o f hr tablet 00:00: mouth once [place] 00 daily with Medical breakfast Branch METFORMIN 2021-02 Yes Take 1 [facility] 500 mg 24 02-21 tablet by [facility] o f hr tablet [...] 00 :00 daily with Medical breakfast Branch spironolact 2021-02- No 25mg Take 25 mg [facility] one 25 mg 0-21 10-21 by mouth ity o f tablet 14:33: 00:00 daily. [place] 53 :00 Medical Branch spironolact 2021-02- No 25mg Take 25 mg [facility] one 25 mg 0-21 10-21 by mouth [facility] o f tablet 14:33: 00:00 daily. [place] 53 :00 [facility] benzonatate 2021-02 Yes [id number] 200mg Take 1 [facility] 200 mg 0-21 capsule by [facility] of capsule 00:00: mouth 3 [place] 00 (three) Medical times Branch daily as needed for Cough. atorvastati 2021-02 Yes [id number] 40mg Take 1 [facility] n 40 mg 0-21 tablet by [facility] of tablet 00:00: mouth at [place] 00 bedtime. [facility] losartan 25 2021-02 Yes [id number] 25mg Take 1 [facility] mg tablet 0-21 tablet by [facility] o f 00:00: mouth at [place] 00 bedtime. [facility] furosemide 2021-02 Yes [id number] 20mg Take 1 [facility] 20 mg 0-21 tablet by [facility] of tablet 00:00: mouth [place] 00 daily. [facility] spironolact 2021-02 Yes [id number] 25mg Take 1 [facility] one 25 mg 0-21 tablet by [facility] o f tablet 00:00: mouth [place] 00 daily. [facility] benzonatate 2021-02 Yes [id number] 200mg Take 1 [facility] 200 mg 0-21 capsule by [facility] of capsule 00:00: mouth 3 (three) Medical times Branch daily as needed for Cough. atorvastati 2021-02 Yes [id number] 40mg Take 1 [facility] n 40 mg 0-21 tablet by [facility] of tablet 00:00: mouth at [place] 00 bedtime. [facility] losartan 25 2021-02 Yes [id number] 25mg Take 1 [facility] mg tablet 0-21 tablet by [facility] o f 00:00: mouth at [place] 00 bedtime. [facility] furosemide 2021-02 Yes [id number] 20mg Take 1 [facility] 20 mg 0-21 tablet by [facility] of tablet 00:00: mouth 00 daily. [facility] spironolact 2021-02 Yes [id number] 25mg Take 1 [facility] one 25 mg 0-21 tablet by [facility] o f tablet 00:00: mouth 00 daily. [facility] benzonatate 2021-02 Yes [id number] 200mg Take 1 [facility] 200 mg 0-21 capsule by [facility] of capsule 00:00: mouth 3 (three) Medical times [facility] daily as needed for Cough. atorvastati 2021-02 Yes [id number] 40mg Take 1 [facility] n 40 mg 0-21 tablet by [facility] of tablet 00:00: mouth at bedtime. Medical [facility] losartan 25 2021-02 Yes [id number] 25mg Take 1 [facility] mg tablet 0-21 tablet by [facility] o f 00:00: mouth at bedtime. Medical [facility] furosemide 2021-02 Yes [id number] 20mg Take 1 [facility] 20 mg 0-21 tablet by [facility] of tablet 00:00: mouth [place] 00 daily. [facility] spironolact 2021-02 Yes [id number] 25mg Take 1 [facility] one 25 mg 0-21 tablet by [facility] o f tablet 00:00: mouth [place] 00 daily. [facility] benzonatate 2021-02 Yes [id number] 200mg Take 1 [facility] 200 mg 0-21 capsule by [facility] of capsule 00:00: mouth 3 00 (three) Medical times [facility] daily as needed for Cough. atorvastati 2021-02 Yes [id number] 40mg Take 1 [facility] n 40 mg 0-21 tablet by [facility] of tablet 00:00: mouth at [place] 00 bedtime. [facility] losartan 25 2021-02 Yes [id number] 25mg Take 1 [facility] mg tablet 0-21 tablet by [facility]y o f 00:00: mouth at [place] 00 bedtime. [facility] furosemide 2021-02 Yes [id number] 20mg Take 1 [facility] 20 mg 0-21 tablet by [facility] of tablet 00:00: mouth [place] 00 daily. [facility] spironolact 2021-02 Yes [id number] 25mg Take 1 [facility] one 25 mg 0-21 tablet by [facility] o f tablet 00:00: mouth [place] 00 daily. [facility] benzonatate 2021-02 Yes [id number] 200mg Take 1 [facility] 200 mg 0-21 capsule by [facility] of capsule 00:00: mouth 3 [place] 00 (three) Medical times [facility] daily as needed for Cough. atorvastati 2021-02 Yes [id number] 40mg Take 1 [facility] n 40 mg 0-21 tablet by [facility] of tablet 00:00: mouth at [place] 00 bedtime. [facility] losartan 25 2021-02 Yes [id number] 25mg Take 1 [facility] mg tablet 0-21 tablet by ity o f 00:00: mouth at [place] 00 bedtime. [facility] furosemide 2021-02 Yes [id number] 20mg Take 1 [facility] 20 mg 0-21 tablet by [facility] of tablet 00:00: mouth [place] 00 daily. [facility] spironolact 2021-02 Yes [id number] 25mg Take 1 [facility] one 25 mg 0-21 tablet by [facility]y o f tablet 00:00: mouth [place] 00 daily. [facility] benzonatate 2021-02 Yes [id number] 200mg Take 1 [facility] 200 mg 0-21 capsule by [facility] of capsule 00:00: mouth 3 [place] 00 (three) Medical times Branch daily as needed for Cough. atorvastati 2021-02 Yes [id number] 40mg Take 1 [facility] n 40 mg 0-21 tablet by [facility] of tablet 00:00: mouth at [place] 00 bedtime. [facility] losartan 25 2021-02 Yes [id number] 25mg Take 1 [facility] mg tablet 0-21 tablet by ity o f 00:00: mouth at [place] 00 bedtime. [facility] furosemide 2021-02 Yes [id number] 20mg Take 1 [facility] 20 mg 0-21 tablet by [facility] of tablet 00:00: mouth [place] 00 daily. [facility] spironolact 2021-02 Yes [id number] 25mg Take 1 [facility] one 25 mg 0-21 tablet by ity o f tablet 00:00: mouth [place] 00 daily. [facility] losartan 25 2021-02 Yes [id number] 25mg Take 1 [facility] mg tablet 0-21 tablet by ity o f 00:00: mouth at [place] 00 bedtime. [facility] furosemide 2021-02 Yes [id number] 20mg Take 1 [facility] 20 mg 0-21 tablet by [facility] of tablet 00:00: mouth [place] 00 daily. [facility] spironolact 2021-02 Yes [id number] 25mg Take 1 [facility] one 25 mg 0-21 tablet by ity o f tablet 00:00: mouth [place] 00 daily. [facility] losartan 25 2021-02 Yes [id number] 25mg Take 1 [facility] mg tablet 0-21 tablet by ity o f 00:00: mouth at [place] 00 bedtime. [facility] furosemide 2021-02 Yes [id number] 20mg Take 1 [facility] 20 mg 0-21 tablet by [facility] of tablet 00:00: mouth [place] 00 daily. [facility] spironolact 2021-02 Yes [id number] 25mg Take 1 [facility] one 25 mg 0-21 tablet by ity o f tablet 00:00: mouth [place] 00 daily. [facility] losartan 25 2021-02 Yes [id number] 25mg Take 1 [facility] mg tablet 0-21 tablet by ity o f 00:00: mouth at [place] 00 bedtime. [facility] furosemide 2021-02 Yes [id number] 20mg Take 1 [facility] 20 mg 0-21 tablet by [facility] of tablet 00:00: mouth [place] 00 daily. [facility] spironolact 2021-02 Yes [id number] 25mg Take 1 [facility] one 25 mg 0-21 tablet by [facility]y o f tablet 00:00: mouth [place] 00 daily. [facility] losartan 25 2021-02 Yes [id number] 25mg Take 1 [facility] mg tablet 0-21 tablet by ity o f 00:00: mouth at [place] 00 bedtime. [facility] furosemide 2021-02 Yes [id number] 20mg Take 1 [facility] 20 mg 0-21 tablet by [facility] of tablet 00:00: mouth [place] 00 daily. [facility] spironolact 2021-02 Yes [id number] 25mg Take 1 [facility] one 25 mg 0-21 tablet by ity o f tablet 00:00: mouth [place] 00 daily. [facility] spironolact 2021-02 Yes [id number] 25mg Take 1 [facility] one 25 mg 0-21 tablet by ity o f tablet 00:00: mouth [place] 00 daily. [facility] spironolact 2021-02 Yes [id number] 25mg Take 1 [facility] one 25 mg 0-21 tablet by ity o f tablet 00:00: mouth [place] 00 daily. [facility] spironolact 2021-02 Yes [id number] 25mg Take 1 [facility] one 25 mg 0-21 tablet by [facility]y o f tablet 00:00: mouth [place] 00 daily. [facility] spironolact 2021-02 Yes [id number] 25mg Take 1 [facility] one 25 mg 0-21 tablet by ity o f tablet 00:00: mouth [place] 00 daily. [facility] spironolact 2021-02 Yes [id number] 25mg Take 1 [facility] one 25 mg 0-21 tablet by [facility]y o f tablet 00:00: mouth [place] 00 daily. [facility] spironolact 2021-02 Yes [id number] 25mg Take 1 [facility] one 25 mg 0-21 tablet by [facility]y o f tablet 00:00: mouth [place] 00 daily. [facility] spironolact 2021-02 Yes [id number] 25mg Take 1 [facility] one 25 mg 0-21 tablet by [facility] o f tablet 00:00: mouth [place] 00 daily. [facility] spironolact 2021-02 Yes [id number] 25mg Take 1 [facility] one 25 mg 0-21 tablet by [facility] o f tablet 00:00: mouth [place] 00 daily. [facility] spironolact 2021-02 Yes [id number] 25mg Take 1 [facility] one 25 mg 0-21 tablet by [facility]y o f tablet 00:00: mouth [place] 00 daily. [facility] spironolact 2021-02 Yes [id number] 25mg Take 1 [facility] one 25 mg 0-21 tablet by ity o f tablet 00:00: mouth [place] 00 daily. [facility] spironolact 2021-02 Yes [id number] 25mg Take 1 [facility] one 25 mg 0-21 tablet by [facility] o f tablet 00:00: mouth [place] 00 daily. [facility] spironolact 2021-02 Yes [id number] 25mg Take 1 [facility] one 25 mg 0-21 tablet by [facility] o f tablet 00:00: mouth [place] 00 daily. [facility] spironolact 2021-02 Yes [id number] 25mg Take 1 [facility] one 25 mg 0-21 tablet by [facility] o f tablet 00:00: mouth [place] 00 daily. [facility] spironolact 2021-02 Yes [id number] 25mg Take 1 [facility] one 25 mg 0-21 tablet by [facility] o f tablet 00:00: mouth [place] 00 daily. [facility] spironolact 2021-02 Yes [id number] 25mg Take 1 [facility] one 25 mg 0-21 tablet by [facility] o f tablet 00:00: mouth [place] 00 daily. [facility] spironolact 2021-02 Yes [id number] 25mg Take 1 [facility] one 25 mg 0-21 tablet by [facility] o f tablet 00:00: mouth [place] 00 daily. [facility] spironolact 2021-02 Yes [id number] 25mg Take 1 [facility] one 25 mg 0-21 tablet by ity o f tablet 00:00: mouth [place] 00 daily. [facility] spironolact 2021-02 Yes [id number] 25mg Take 1 [facility] one 25 mg 0-21 tablet by [facility] o f tablet 00:00: mouth [place] 00 daily. [facility] spironolact 2021-02 Yes [id number] 25mg Take 1 [facility] one 25 mg 0-21 tablet by [facility]y o f tablet 00:00: mouth [place] 00 daily. [facility] spironolact 2021-02 Yes [id number] 25mg Take 1 [facility] one 25 mg 0-21 tablet by [facility] o f tablet 00:00: mouth [place] 00 daily. [facility] spironolact 2021-02 Yes [id number] 25mg Take 1 [facility] one 25 mg 0-21 tablet by [facility] o f tablet 00:00: mouth [place] 00 daily. [facility] spironolact 2021-02 Yes [id number] 25mg Take 1 [facility] one 25 mg 0-21 tablet by it[facility] o f tablet 00:00: mouth [place] 00 daily. [facility] spironolact 2021-02 Yes [id number] 25mg Take 1 [facility] one 25 mg 0-21 tablet by ity o f tablet 00:00: mouth [place] 00 daily. [facility] spironolact 2021-02 Yes [id number] 25mg Take 1 [facility] one 25 mg 0-21 tablet by it[facility] o f tablet 00:00: mouth [place] 00 daily. [facility] spironolact 2021-02- No [id number] 25mg Take 1 [facility] one 25 mg 0-21 04-12 tablet by [facility] of tablet 00:00: 00:00 mouth [place] 00 :00 daily. [facility] spironolact 2021-02- No [id number] 25mg Take 1 [facility] one 25 mg 0-21 04-12 tablet by [facility] of tablet 00:00: 00:00 mouth [place] 00 :00 daily. [facility] losartan 25 2021-02- No [id number] 25mg Take 1 [facility] mg tablet 0-05 03-27 tablet by ity of 00:00: 00:00 mouth at [place] 00 :00 bedtime. [facility] Branch furosemide 2021-02- No [id number] 20mg Take 1 [facility] 20 mg 0-05 03-27 tablet by ity of tablet 00:00: 00:00 mouth [place] 00 :00 daily. [facility] losartan 25 2021-02- No [id number] 25mg Take 1 [facility] mg tablet 0-05 03- tablet by ity of 00:00: 00:00 mouth at [place] 00 :00 bedtime. Medical Branch furosemide 2021-02- No [id number] 20mg Take 1 [facility] 20 mg 0-05 03-27 tablet by ity of tablet 00:00: 00:00 mouth [place] 00 :00 daily. [facility] Branch losartan 25 2021-02- No [id number] 25mg Take 1 [facility] mg tablet 0-05 03- tablet by ity of 00:00: 00:00 mouth at [place] 00 :00 bedtime. Medical Branch furosemide 2021-02- No [id number] 20mg Take 1 [facility] 20 mg 0-05 03-27 tablet by ity of tablet 00:00: 00:00 mouth [place] 00 :00 daily. Medical Branch losartan 25 2021-02- No [id number] 25mg Take 1 [facility] mg tablet 0-05 03-27 tablet by ity of 00:00: 00:00 mouth at [place] 00 :00 bedtime. Medical Branch furosemide 2021-02- No [id number] 20mg Take 1 [facility] 20 mg 0-05 03-27 tablet by ity of tablet 00:00: 00:00 mouth [place] 00 :00 daily. [facility] Branch losartan 25 2021-02- No [id number] 25mg Take 1 [facility] mg tablet 0-05 03- tablet by ity of 00:00: 00:00 mouth at [place] 00 :00 bedtime. Medical Branch furosemide 2021-02- No [id number] 20mg Take 1 [facility] 20 mg 0-21 -27 tablet by ity of tablet 00:00: 00:00 mouth [place] 00 :00 daily. Medical Branch losartan 25 2021-02- No [id number] 25mg Take 1 [facility] mg tablet 003-11 tablet by ity of 00:00: 00:00 mouth at [place] 00 :00 bedtime. Medical Branch furosemide 2021-02- No [id number] 20mg Take 1 [facility] 20 mg 0-03-11 tablet by ity of tablet 00:00: 00:00 mouth [place] 00 :00 daily. Medical Branch losartan 25 2021-02- No [id number] 25mg Take 1 [facility] mg tablet 003-11 tablet by ity of 00:00: 00:00 mouth at [place] 00 :00 bedtime. Medical Branch furosemide 2021-02- No [id number] 20mg Take 1 [facility] 20 mg 0-03-11 tablet by ity of tablet 00:00: 00:00 mouth [place] 00 :00 daily. Medical Branch benzonatate 2021-02- No [id number] 200mg Take 1 [facility] 200 mg 0-21 12-09 capsule by ity of capsule 00:00: 00:00 mouth 3 [place] 00 :00 (three) Medical times Branch daily as needed for Cough. atorvastati 2021-02- No [id number] 40mg Take 1 [facility] n 40 mg 0-21 12- tablet by ity of tablet 00:00: 00:00 mouth at [place] 00 :00 bedtime. Medical Branch benzonatate 2021-02- No [id number] 200mg Take 1 [facility] 200 mg 0-21 12-09 capsule by ity of capsule 00:00: 00:00 mouth 3 [place] 00 :00 (three) Medical times Branch daily as needed for Cough. atorvastati 2021-02- No [id number] 40mg Take 1 [facility] n 40 mg 0-21 12-09 tablet by ity of tablet 00:00: 00:00 mouth at [place] 00 :00 bedtime. Medical Branch losartan 50 2021-0 Yes [id number] 25mg Take 0.5 [facility] mg tablet 9-12 tablets by ity of 00:00: mouth [place] 00 every Medical evening. Branch losartan 50 2021-0 Yes [id number] 25mg Take 0.5 [facility] mg tablet 9-12 tablets by ity of 00:00: mouth [place] 00 every Medical evening. Branch losartan 50 2021-0 Yes [id number] 25mg Take 0.5 [facility] mg tablet 9-12 tablets by ity of 00:00: mouth [place] 00 every Medical evening. Branch losartan 50 2021-0 Yes [id number] 25mg Take 0.5 [facility] mg tablet 9-12 tablets by ity of 00:00: mouth [place] 00 every Medical evening. Branch losartan 50 2021-0 Yes [id number] 25mg Take 0.5 [facility] mg tablet 9-12 tablets by ity of 00:00: mouth [place] 00 every Medical evening. Branch losartan 50 2021-0 Yes [id number] 25mg Take 0.5 [facility] mg tablet 9-12 tablets by ity of 00:00: mouth [place] 00 every Medical evening. Branch losartan 50 2021-0 Yes [id number] 25mg Take 0.5 [facility] mg tablet 9-12 tablets by ity of 00:00: mouth [place] 00 every Medical evening. Branch losartan 50 2021-0 Yes [id number] 25mg Take 0.5 [facility] mg tablet 9-12 tablets by ity of 00:00: mouth [place] 00 every Medical evening. Branch losartan 50 2021-0 Yes [id number] 25mg Take 0.5 [facility] mg tablet 9-12 tablets by ity of 00:00: mouth [place] 00 every Medical evening. Branch losartan 50 2021-0 Yes [id number] 25mg Take 0.5 [facility] mg tablet 9-12 tablets by ity of 00:00: mouth [place] 00 every Medical evening. Branch losartan 50 2021-0 Yes [id number] 25mg Take 0.5 [facility] mg tablet 9-12 tablets by ity of 00:00: mouth [place] 00 every Medical evening. Branch losartan 50 2021-0 Yes [id number] 25mg Take 0.5 [facility] mg tablet 9-12 tablets by [facility] of 00:00: mouth [place] 00 every Medical evening. Branch losartan 50 2021-0 Yes [id number] 25mg Take 0.5 [facility] mg tablet 9-12 tablets by it[facility] of 00:00: mouth [place] 00 every Medical evening. Branch losartan 50 2022-0 2- No [id number] 25mg Take 0.5 [facility] mg tablet 9 10-21 tablets by ity of 00:00: 00:00 mouth [place] 00 :00 every Medical evening. Branch losartan 50 2-0 2022- No [id number] 25mg Take 0.5 [facility] mg tablet 9- 10-21 tablets by ity of 00:00: 00:00 [...] o f ORAL 14:50: 00:00 Managed by [place] 14 :00 Dr. [facility] OXYBUTYNIN 2021-2021- No 10mg Take 10 mg [facility] CHLORIDE 7-15 07-15 by mouth. ity o f ORAL 14:50: 00:00 Managed by [place] 14 :00 Dr. Cuenca [facility] losartan 50 2021-0 2021- No [id number] 50mg Take 1 [facility] mg tablet 08-27 09-12 tablet by ity of 00:00: 00:00 mouth [place] 00 :00 daily. Medical Branch losartan 50 2021-0 2021- No [id number] 50mg Take 1 [facility] mg tablet 05-04-15 tablet by ity of 00:00: 00:00 mouth 2 [place] 00 :00 (two) Medical times Branch daily. losartan 50 2021-0 2021- No [id number] 50mg Take 1 [facility] mg tablet 05-04-15 tablet by ity of 00:00: 00:00 mouth 2 [place] 00 :00 (two) Medical times Branch daily. furosemide 2022-0 Yes 40mg Take 1 [facility] [...] 00:00: mouth 00 daily. Medical Branch furosemide 2022-0 Yes 40mg Take 1 [facility] 40 mg 3-17 tablet by it[facility] of tablet 00:00: mouth 00 daily. Medical Branch furosemide 2022-0 Yes 40mg Take 1 [facility] 40 mg 3-17 tablet by ity of tablet 00:00: mouth 00 daily. Medical Branch furosemide 2022-0 Yes 40mg Take 1 [facility] 40 mg 3-17 tablet by ity of tablet 00:00: mouth 00 daily. Medical Branch furosemide 2022-0 Yes 40mg Take 1 [facility] 40 mg 3-17 tablet by ity of tablet 00:00: mouth 00 daily. Medical Branch furosemide 2022-0 Yes 40mg Take 1 [facility] 40 mg 3-17 tablet by ity of tablet 00:00: mouth 00 daily. Medical Branch furosemide 2022-0 Yes 40mg Take 1 [facility] 40 mg 3-17 tablet by ity of tablet 00:00: mouth 00 daily. Medical Branch furosemide 2022-0 Yes 40mg Take 1 [facility] 40 mg 3-17 tablet by ity of tablet 00:00: mouth 00 daily. Medical Branch furosemide 2022-0 Yes 40mg Take 1 [facility] 40 mg 3-17 tablet by ity of tablet 00:00: mouth 00 daily. Medical Branch furosemide 2022-0 Yes 40mg Take 1 [facility] rs 40 mg 3-17 tablet by ity of tablet 00:00: mouth 00 daily. Medical Branch furosemide 2022-0 Yes 40mg Take 1 [facility] 40 mg 3-17 tablet by ity of tablet 00:00: mouth 00 daily. Medical Branch furosemide 2022-0 Yes 40mg Take 1 [facility] rs 40 mg 3-17 tablet by ity of tablet 00:00: mouth [place] 00 daily. Medical Branch furosemide 2021-2021- No 40mg Take 1 [facility] ers 40 mg 3-17 10-21 tablet by ity of tablet 00:00: 00:00 mouth [place] 00 :00 daily. Medical Branch furosemide 2021-2021- No 40mg Take 1 [facility] ers 40 mg 3-17 10-21 tablet by ity of tablet 00:00: 00:00 mouth [place] 00 :00 daily. Medical Branch furosemide 2021-2021- No 40mg Take 1 [facility] ers 40 mg 3-17 10-21 tablet by ity of tablet 00:00: 00:00 mouth [place] 00 :00 daily. Medical Branch furosemide 2021-2021- No 40mg Take 1 [facility] ers 40 mg 3-17 10-21 tablet by ity of tablet 00:00: 00:00 mouth [place] 00 :00 daily. Medical Branch ATORVASTA 2020-02 Yes [id number] 40mg TAKE 1 [facility] N 40 mg 2-13 TABLET BY ity of tablet 00:00: MOUTH AT [place] [facility] Yes [id number] 40mg TAKE 1 [facility] N 40 mg 2-13 TABLET BY ity of tablet 00:00: MOUTH AT [place] [facility]02 Yes [id number] 40mg TAKE 1 [facility] N 40 mg 2-13 TABLET BY ity of tablet 00:00: MOUTH AT [place] [facility]-02 Yes [id number] 40mg TAKE 1 [facility] N 40 mg 2-13 TABLET BY ity of tablet 00:00: MOUTH AT [place] [facility]-02 Yes [id number] 40mg TAKE 1 [facility] N 40 mg 2-13 TABLET BY ity of tablet 00:00: MOUTH AT [place] [facility]-02 Yes [id number] 40mg TAKE 1 [facility] N 40 mg 2-13 TABLET BY ity of tablet 00:00: MOUTH AT [place] [facility]-02 Yes [id number] 40mg TAKE 1 [facility] N 40 mg 2-13 TABLET BY ity of tablet 00:00: MOUTH AT [address] [facility]-02 Yes [id number] 40mg TAKE 1 [facility] N 40 mg 2-13 TABLET BY ity of tablet 00:00: MOUTH AT [address] 2020-02 Yes [id number] 40mg TAKE 1 [facility] N 40 mg 2-13 TABLET BY ity of tablet 00:00: MOUTH AT [address] 2020-02 Yes [id number] 40mg TAKE 1 [facility] N 40 mg 2-13 TABLET BY ity of tablet 00:00: MOUTH AT [address] 2020-02 Yes [id number] 40mg TAKE 1 [facility] N 40 mg 2-13 TABLET BY ity of tablet 00:00: MOUTH AT [address] 2020-02 Yes [id number] 40mg TAKE 1 [facility] N 40 mg 2-13 TABLET BY ity of tablet 00:00: MOUTH AT [address] 2020-02 Yes [id number] 40mg TAKE 1 [facility] N 40 mg 2-13 TABLET BY ity of tablet 00:00: MOUTH AT [address] 2020-02 Yes [id number] 40mg TAKE 1 [facility] N 40 mg 2-13 TABLET BY ity of tablet 00:00: MOUTH AT [address] 2020-02- No [id number] 40mg TAKE 1 [facility] N 40 mg 2-13 10-21 TABLET BY ity of tablet 00:00: 00:00 MOUTH AT [place] 00 :00 [facility] 2020-02- No [id number] 40mg TAKE 1 [facility] N 40 mg 2-13 10-21 TABLET BY ity of tablet 00:00: 00:00 MOUTH AT [place] 00 :00 [facility] 2020-02- No [id number] 40mg TAKE 1 [facility] N 40 mg 2-13 10-21 TABLET BY ity of tablet 00:00: 00:00 MOUTH AT [place] 00 :00 [facility] 2020-02- No [id number] 40mg TAKE 1 [facility] N 40 mg 2-13 10-21 TABLET BY ity of tablet 00:00: 00:00 MOUTH AT [place] 00 :00 [facility] azelastine 2020-02 Yes [id number] 1{spray Use 1 [facility] 137 mcg 2-02 } [place] in ity of (0.1 %) 00:00: each [place] nasal spray 00 nostril 2 Med ical (two) Branch times daily. Use in each nostril as directed fluticasone 2020-02 Yes [id number] 2{puff} Inhale 2 [facility] propionate 2-02 Puffs 2 ity of (FLOVENT 00:00: (two) [place] HFA) 44 00 times Medical mcg/actuati daily. Branch on inhaler Rinse mouth after each use. azelastine 2020-02 Yes [id number] 1{spray Use 1 [facility] 137 mcg 2-02 } [place] in ity of (0.1 %) 00:00: each [place] nasal spray 00 nostril 2 Med ical (two) Branch times daily. Use in each nostril as directed fluticasone 2020-02 Yes [id number] 2{puff} Inhale 2 [facility] propionate 2-02 Puffs 2 ity of (FLOVENT 00:00: (two) [place] HFA) 44 00 times Medical mcg/actuati daily. Branch on inhaler Rinse mouth after each use. azelastine 2020-02 Yes [id number] 1{spray Use 1 [facility] 137 mcg 2-02 } [place] in ity of (0.1 %) 00:00: each [place] nasal spray 00 nostril 2 Med ical (two) Branch times daily. Use in each nostril as directed fluticasone 2020-02 Yes [id number] 2{puff} Inhale 2 [facility] propionate 2-02 Puffs 2 ity of (FLOVENT 00:00: (two) [place] HFA) 44 00 times Medical mcg/actuati daily. Branch on inhaler Rinse mouth after each use. azelastine 2020-02 Yes [id number] 1{spray Use 1 [facility] 137 mcg 2-02 } [place] ity of (0.1 %) 00:00: each [place] nasal spray 00 nostril 2 Med ical (two) Branch times daily. Use in each nostril as directed fluticasone 2020-02 Yes [id number] 2{puff} Inhale 2 [facility] propionate 2-02 Puffs 2 ity of (FLOVENT 00:00: (two) [place] HFA) 44 00 times Medical mcg/actuati daily. Branch on inhaler Rinse mouth after each use. azelastine 2020-02 Yes [id number] 1{spray Use 1 [facility] 137 mcg 2-02 } [place] in ity of (0.1 %) 00:00: each [place] nasal spray 00 nostril 2 Med ical (two) Branch times daily. Use in each nostril as directed fluticasone 2020-02 Yes [id number] 2{puff} Inhale 2 [facility] propionate 2-02 Puffs 2 ity of (FLOVENT 00:00: (two) [place] HFA) 44 00 times Medical mcg/actuati daily. Branch on inhaler Rinse mouth after each use. azelastine 2020-02 Yes [id number] 1{spray Use 1 [facility] 137 mcg 2-02 } [place] in ity of (0.1 %) 00:00: each [place] nasal spray 00 nostril 2 Med ical (two) Branch times daily. Use in each nostril as directed fluticasone 2020-02 Yes [id number] 2{puff} Inhale 2 [facility] propionate 2-02 Puffs 2 ity of (FLOVENT 00:00: (two) [place] HFA) 44 00 times Medical mcg/actuati daily. Branch on inhaler Rinse mouth after each use. azelastine 2020-02 Yes [id number] 1{spray Use 1 [facility] 137 mcg 2-02 } [place] ity of (0.1 %) 00:00: each [place] nasal spray 00 nostril 2 Med ical (two) Branch times daily. Use in each nostril as directed fluticasone 2020-02 Yes [id number] 2{puff} Inhale 2 [facility] propionate 2-02 Puffs 2 ity of (FLOVENT 00:00: (two) [place] HFA) 44 00 times Medical mcg/actuati daily. Branch on inhaler Rinse mouth after each use. azelastine 2020-02 Yes [id number] 1{spray Use 1 [facility] 137 mcg 2-02 } [place] in ity of (0.1 %) 00:00: each [place] nasal spray 00 nostril 2 Med ical (two) Branch times daily. Use in each nostril as directed fluticasone 2020-02 Yes [id number] 2{puff} Inhale 2 [facility] propionate 2-02 Puffs 2 ity of (FLOVENT 00:00: (two) [place] HFA) 44 00 times Medical mcg/actuati daily. Branch on inhaler Rinse mouth after each use. azelastine 2020-02 Yes [id number] 1{spray Use 1 [facility] 137 mcg 2-02 } [place] in ity of (0.1 %) 00:00: each [place] nasal spray 00 nostril 2 Med ical (two) Branch times daily. Use in each nostril as directed fluticasone 2020-02 Yes [id number] 2{puff} Inhale 2 [facility] propionate 2-02 Puffs 2 ity of (FLOVENT 00:00: (two) [place] HFA) 44 00 times Medical mcg/actuati daily. Branch on inhaler Rinse mouth after each use. azelastine 2020-02 Yes [id number] 1{spray Use 1 [facility] 137 mcg 2-02 } [place] in ity of (0.1 %) 00:00: each [place] nasal spray 00 nostril 2 Med ical (two) Branch times daily. Use in each nostril as directed fluticasone 2020-02 Yes [id number] 2{puff} Inhale 2 [facility] propionate 2-02 Puffs 2 ity of (FLOVENT 00:00: (two) [place] HFA) 44 00 times Medical mcg/actuati daily. Branch on inhaler Rinse mouth after each use. azelastine 2020-02 Yes [id number] 1{spray Use 1 [facility] 137 mcg 2-02 } [place] in ity of (0.1 %) 00:00: each [place] nasal spray 00 nostril 2 Med ical (two) Branch times daily. Use in each nostril as directed fluticasone 2020-02 Yes [id number] 2{puff} Inhale 2 [facility] propionate 2-02 Puffs 2 ity of (FLOVENT 00:00: (two) [place] HFA) 44 00 times Medical mcg/actuati daily. Branch on inhaler Rinse mouth after each use. azelastine 2020-02 Yes [id number] 1{spray Use 1 [facility] 137 mcg 2-02 } [place] in ity of (0.1 %) 00:00: each [place] nasal spray 00 nostril 2 Med ical (two) Branch times daily. Use in each nostril as directed fluticasone 2020-02 Yes [id number] 2{puff} Inhale 2 [facility] propionate 2-02 Puffs 2 ity of (FLOVENT 00:00: (two) [place] HFA) 44 00 times Medical mcg/actuati daily. Branch on inhaler Rinse mouth after each use. azelastine 2020-02 Yes [id number] 1{spray Use 1 [facility] 137 mcg 2-02 } [place] in ity of (0.1 %) 00:00: each [place] nasal spray 00 nostril 2 Med ical (two) Branch times daily. Use in each nostril as directed fluticasone 2020-02 Yes [id number] 2{puff} Inhale 2 [facility] propionate 2-02 Puffs 2 ity of (FLOVENT 00:00: (two) [place] HFA) 44 00 times Medical mcg/actuati daily. Branch on inhaler Rinse mouth after each use. azelastine 2020-02 Yes [id number] 1{spray Use 1 [facility] 137 mcg 2-02 } [place] in ity of (0.1 %) 00:00: each [place] nasal spray 00 nostril 2 Med ical (two) Branch times daily. Use in each nostril as directed fluticasone 2020-02 Yes [id number] 2{puff} Inhale 2 [facility] propionate 2-02 Puffs 2 ity of (FLOVENT 00:00: (two) [place] HFA) 44 00 times Medical mcg/actuati daily. Branch on inhaler Rinse mouth after each use. azelastine 2020-02 Yes [id number] 1{spray Use 1 [facility] 137 mcg 2-02 } [place] in ity of (0.1 %) 00:00: each [place] nasal spray 00 nostril 2 Med ical (two) Branch times daily. Use in each nostril as directed fluticasone 2020-02 Yes [id number] 2{puff} Inhale 2 [facility] propionate 2-02 Puffs 2 ity of (FLOVENT 00:00: (two) [place] HFA) 44 00 times Medical mcg/actuati daily. Branch on inhaler Rinse mouth after each use. azelastine 2020-02 Yes [id number] 1{spray Use 1 [facility] 137 mcg 2-02 } [place] in ity of (0.1 %) 00:00: each [place] nasal spray 00 nostril 2 Med ical (two) Branch times daily. Use in each nostril as directed fluticasone 2020-02 Yes [id number] 2{puff} Inhale 2 [facility] propionate 2-02 Puffs 2 ity of (FLOVENT 00:00: (two) [place] HFA) 44 00 times Medical mcg/actuati daily. Branch on inhaler Rinse mouth after each use. azelastine 2020-02 Yes [id number] 1{spray Use 1 [facility] 137 mcg 2-02 } [place] in ity of (0.1 %) 00:00: each [place] nasal spray 00 nostril 2 Med ical (two) Branch times daily. Use in each nostril as directed fluticasone 2020-02 Yes [id number] 2{puff} Inhale 2 [facility] propionate 2-02 Puffs 2 ity of (FLOVENT 00:00: (two) [place] HFA) 44 00 times Medical mcg/actuati daily. Branch on inhaler Rinse mouth after each use. azelastine 2020-02 Yes [id number] 1{spray Use 1 [facility] 137 mcg 2-02 } [place] in ity of (0.1 %) 00:00: each [place] nasal spray 00 nostril 2 Med ical (two) Branch times daily. Use in each nostril as directed fluticasone 2020-02 Yes [id number] 2{puff} Inhale 2 [facility] propionate 2-02 Puffs 2 ity of (FLOVENT 00:00: (two) [place] HFA) 44 00 times Medical mcg/actuati daily. Branch on inhaler Rinse mouth after each use. azelastine 2020-02 Yes [id number] 1{spray Use 1 [facility] 137 mcg 2-02 } [place] in ity of (0.1 %) 00:00: each [place] nasal spray 00 nostril 2 Med ical (two) Branch times daily. Use in each nostril as directed fluticasone 2020-02 Yes [id number] 2{puff} Inhale 2 [facility] propionate 2-02 Puffs 2 ity of (FLOVENT 00:00: (two) [place] HFA) 44 00 times Medical mcg/actuati daily. Branch on inhaler Rinse mouth after each use. azelastine 2020-02 Yes [id number] 1{spray Use 1 [facility] 137 mcg 2-02 } [place] in ity of (0.1 %) 00:00: each [place] nasal spray 00 nostril 2 Med ical (two) Branch times daily. Use in each nostril as directed fluticasone 2020-02 Yes [id number] 2{puff} Inhale 2 [facility] propionate 2-02 Puffs 2 ity of (FLOVENT 00:00: (two) [place] HFA) 44 00 times Medical mcg/actuati daily. Branch on inhaler Rinse mouth after each use. azelastine 2020-02 Yes [id number] 1{spray Use 1 [facility] 137 mcg 2-02 } [place] in ity of (0.1 %) 00:00: each [place] nasal spray 00 nostril 2 Med ical (two) Branch times daily. Use in each nostril as directed fluticasone 2020-02 Yes [id number] 2{puff} Inhale 2 [facility] propionate 2-02 Puffs 2 ity of (FLOVENT 00:00: (two) [place] HFA) 44 00 times Medical mcg/actuati daily. Branch on inhaler Rinse mouth after each use. azelastine 2020-02 Yes [id number] 1{spray Use 1 [facility] 137 mcg 2-02 } [place] in ity of (0.1 %) 00:00: each [place] nasal spray 00 nostril 2 Med ical (two) Branch times daily. Use in each nostril as directed fluticasone 2020-02 Yes [id number] 2{puff} Inhale 2 [facility] propionate 2-02 Puffs 2 ity of (FLOVENT 00:00: (two) [place] HFA) 44 00 times Medical mcg/actuati daily. Branch on inhaler Rinse mouth after each use. azelastine 2020-02 Yes [id number] 1{spray Use 1 [facility] 137 mcg 2-02 } [place] in ity of (0.1 %) 00:00: each [place] nasal spray 00 nostril 2 Med ical (two) Branch times daily. Use in each nostril as directed fluticasone 2020-02 Yes [id number] 2{puff} Inhale 2 [facility] propionate 2-02 Puffs 2 ity of (FLOVENT 00:00: (two) [place] HFA) 44 00 times Medical mcg/actuati daily. Branch on inhaler Rinse mouth after each use. azelastine 2020-02 Yes [id number] 1{spray Use 1 [facility] 137 mcg 2-02 } [place] in ity of (0.1 %) 00:00: each [place] nasal spray 00 nostril 2 Med ical (two) Branch times daily. Use in each nostril as directed fluticasone 2020-02 Yes [id number] 2{puff} Inhale 2 [facility] propionate 2-02 Puffs 2 ity of (FLOVENT 00:00: (two) [place] HFA) 44 00 times Medical mcg/actuati daily. Branch on inhaler Rinse mouth after each use. azelastine 2020-02 Yes [id number] 1{spray Use 1 [facility] 137 mcg 2-02 } [place] in ity of (0.1 %) 00:00: each [place] nasal spray 00 nostril 2 Med ical (two) Branch times daily. Use in each nostril as directed fluticasone 2020-02 Yes [id number] 2{puff} Inhale 2 [facility] propionate 2-02 Puffs 2 ity of (FLOVENT 00:00: (two) [place] HFA) 44 00 times Medical mcg/actuati daily. Branch on inhaler Rinse mouth after each use. azelastine 2020-02 Yes [id number] 1{spray Use 1 [facility] 137 mcg 2-02 } [place] in ity of (0.1 %) 00:00: each [place] nasal spray 00 nostril 2 Med ical (two) Branch times daily. Use in each nostril as directed fluticasone 2020-02 Yes [id number] 2{puff} Inhale 2 [facility] propionate 2-02 Puffs 2 ity of (FLOVENT 00:00: (two) [place] HFA) 44 00 times Medical mcg/actuati daily. Branch on inhaler Rinse mouth after each use. azelastine 2020-02 Yes [id number] 1{spray Use 1 [facility] 137 mcg 2-02 } [place] in ity of (0.1 %) 00:00: each [place] nasal spray 00 nostril 2 Med ical (two) Branch times daily. Use in each nostril as directed fluticasone 2020-02 Yes [id number] 2{puff} Inhale 2 [facility] propionate 2-02 Puffs 2 ity of (FLOVENT 00:00: (two) [place] HFA) 44 00 times Medical mcg/actuati daily. Branch on inhaler Rinse mouth after each use. azelastine 2020-02 Yes [id number] 1{spray Use 1 [facility] 137 mcg 2-02 } [place] in ity of (0.1 %) 00:00: each [place] nasal spray 00 nostril 2 Med ical (two) Branch times daily. Use in each nostril as directed fluticasone 2020-02 Yes [id number] 2{puff} Inhale 2 [facility] propionate 2-02 Puffs 2 ity of (FLOVENT 00:00: (two) [place] HFA) 44 00 times Medical mcg/actuati daily. Branch on inhaler Rinse mouth after each use. azelastine 2020-02 Yes [id number] 1{spray Use 1 [facility] 137 mcg 2-02 } [place] in ity of (0.1 %) 00:00: each [place] nasal spray 00 nostril 2 Med ical (two) Branch times daily. Use in each nostril as directed fluticasone 2020-02 Yes [id number] 2{puff} Inhale 2 [facility] propionate 2-02 Puffs 2 ity of (FLOVENT 00:00: (two) [place] HFA) 44 00 times Medical mcg/actuati daily. Branch on inhaler Rinse mouth after each use. azelastine 2020-02 Yes [id number] 1{spray Use 1 [facility] 137 mcg 2-02 } [place] in ity of (0.1 %) 00:00: each [place] nasal spray 00 nostril 2 Med ical (two) Branch times daily. Use in each nostril as directed fluticasone 2020-02 Yes [id number] 2{puff} Inhale 2 [facility] propionate 2-02 Puffs 2 ity of (FLOVENT 00:00: (two) [place] HFA) 44 00 times Medical mcg/actuati daily. Branch on inhaler Rinse mouth after each use. azelastine 2020-02 Yes [id number] 1{spray Use 1 [facility] 137 mcg 2-02 } [place] in ity of (0.1 %) 00:00: each [place] nasal spray 00 nostril 2 Med ical (two) Branch times daily. Use in each nostril as directed fluticasone 2020-02 Yes [id number] 2{puff} Inhale 2 [facility] propionate 2-02 Puffs 2 ity of (FLOVENT 00:00: (two) [place] HFA) 44 00 times Medical mcg/actuati daily. Branch on inhaler Rinse mouth after each use. azelastine 2020-02 Yes [id number] 1{spray Use 1 [facility] 137 mcg 2-02 } [place] in ity of (0.1 %) 00:00: each [place] nasal spray 00 nostril 2 Med ical (two) Branch times daily. Use in each nostril as directed fluticasone 2020-02 Yes [id number] 2{puff} Inhale 2 [facility] propionate 2-02 Puffs 2 ity of (FLOVENT 00:00: (two) [place] HFA) 44 00 times Medical mcg/actuati daily. Branch on inhaler Rinse mouth after each use. azelastine 2020-02 Yes [id number] 1{spray Use 1 [facility] 137 mcg 2-02 } [place] in ity of (0.1 %) 00:00: each [place] nasal spray 00 nostril 2 Med ical (two) Branch times daily. Use in each nostril as directed fluticasone 2020-02 Yes [id number] 2{puff} Inhale 2 [facility] propionate 2-02 Puffs 2 ity of (FLOVENT 00:00: (two) [place] HFA) 44 00 times Medical mcg/actuati daily. Branch on inhaler Rinse mouth after each use. azelastine 2020-02 Yes [id number] 1{spray Use 1 [facility] 137 mcg 2-02 } [place] in ity of (0.1 %) 00:00: each [place] nasal spray 00 nostril 2 Med ical (two) Branch times daily. Use in each nostril as directed fluticasone 2020-02 Yes [id number] 2{puff} Inhale 2 [facility] propionate 2-02 Puffs 2 ity of (FLOVENT 00:00: (two) [place] HFA) 44 00 times Medical mcg/actuati daily. Branch on inhaler Rinse mouth after each use. azelastine 2020-02 Yes [id number] 1{spray Use 1 [facility] 137 mcg 2-02 } [place] in ity of (0.1 %) 00:00: each [place] nasal spray 00 nostril 2 Med ical (two) Branch times daily. Use in each nostril as directed fluticasone 2020-02 Yes [id number] 2{puff} Inhale 2 [facility] propionate 2-02 Puffs 2 ity of (FLOVENT 00:00: (two) [place] HFA) 44 00 times Medical mcg/actuati daily. Branch on inhaler Rinse mouth after each use. azelastine 2020-02 Yes [id number] 1{spray Use 1 [facility] 137 mcg 2-02 } [place] in ity of (0.1 %) 00:00: each [place] nasal spray 00 nostril 2 Med ical (two) Branch times daily. Use in each nostril as directed fluticasone 2020-02 Yes [id number] 2{puff} Inhale 2 [facility] propionate 2-02 Puffs 2 ity of (FLOVENT 00:00: (two) [place] HFA) 44 00 times Medical mcg/actuati daily. Branch on inhaler Rinse mouth after each use. azelastine 2020-02 Yes [id number] 1{spray Use 1 [facility] 137 mcg 2-02 } [place] in ity of (0.1 %) 00:00: each [place] nasal spray 00 nostril 2 Med ical (two) Branch times daily. Use in each nostril as directed fluticasone 2020-02 Yes [id number] 2{puff} Inhale 2 [facility] propionate 2-02 Puffs 2 ity of (FLOVENT 00:00: (two) [place] HFA) 44 00 times Medical mcg/actuati daily. Branch on inhaler Rinse mouth after each use. azelastine 2020-02 Yes [id number] 1{spray Use 1 [facility] 137 mcg 2-02 } [place] in ity of (0.1 %) 00:00: each [place] nasal spray 00 nostril 2 Med ical (two) Branch times daily. Use in each nostril as directed fluticasone 2020-02 Yes [id number] 2{puff} Inhale 2 [facility] propionate 2-02 Puffs 2 ity of (FLOVENT 00:00: (two) [place] HFA) 44 00 times Medical mcg/actuati daily. Branch on inhaler Rinse mouth after each use. azelastine 2020-02 Yes [id number] 1{spray Use 1 [facility] 137 mcg 2-02 } [place] in ity of (0.1 %) 00:00: each [place] nasal spray 00 nostril 2 Med ical (two) Branch times daily. Use in each nostril as directed fluticasone 2020-02 Yes [id number] 2{puff} Inhale 2 [facility] propionate 2-02 Puffs 2 ity of (FLOVENT 00:00: (two) [place] HFA) 44 00 times Medical mcg/actuati daily. Branch on inhaler Rinse mouth after each use. azelastine 2020-02 Yes [id number] 1{spray Use 1 [facility] 137 mcg 2-02 } [place] in ity of (0.1 %) 00:00: each [place] nasal spray 00 nostril 2 Med ical (two) Branch times daily. Use in each nostril as directed fluticasone 2020-02 Yes [id number] 2{puff} Inhale 2 [facility] propionate 2-02 Puffs 2 ity of (FLOVENT 00:00: (two) [place] HFA) 44 00 times Medical mcg/actuati daily. Branch on inhaler Rinse mouth after each use. azelastine 2020-02 Yes [id number] 1{spray Use 1 [facility] 137 mcg 2-02 } [place] in ity of (0.1 %) 00:00: each [place] nasal spray 00 nostril 2 Med ical (two) Branch times daily. Use in each nostril as directed fluticasone 2020-02 Yes [id number] 2{puff} Inhale 2 [facility] propionate 2-02 Puffs 2 ity of (FLOVENT 00:00: (two) [place] HFA) 44 00 times Medical mcg/actuati daily. Branch on inhaler Rinse mouth after each use. azelastine 2020-02 Yes [id number] 1{spray Use 1 [facility] 137 mcg 2-02 } [place] in ity of (0.1 %) 00:00: each [place] nasal spray 00 nostril 2 Med ical (two) Branch times daily. Use in each nostril as directed fluticasone 2020-02 Yes [id number] 2{puff} Inhale 2 [facility] propionate 2-02 Puffs 2 ity of (FLOVENT 00:00: (two) [place] HFA) 44 00 times Medical mcg/actuati daily. Branch on inhaler Rinse mouth after each use. azelastine 2020-02 Yes [id number] 1{spray Use 1 [facility] 137 mcg 2-02 } [place] in ity of (0.1 %) 00:00: each [place] nasal spray 00 nostril 2 Med ical (two) Branch times daily. Use in each nostril as directed fluticasone 2020-02 Yes [id number] 2{puff} Inhale 2 [facility] propionate 2-02 Puffs 2 ity of (FLOVENT 00:00: (two) [place] HFA) 44 00 times Medical mcg/actuati daily. Branch on inhaler Rinse mouth after each use. azelastine 2020-02 Yes [id number] 1{spray Use 1 [facility] 137 mcg 2-02 } [place] in ity of (0.1 %) 00:00: each [place] nasal spray 00 nostril 2 Med ical (two) Branch times daily. Use in each nostril as directed fluticasone 2020-02 Yes [id number] 2{puff} Inhale 2 [facility] propionate 2-02 Puffs 2 ity of (FLOVENT 00:00: (two) [place] HFA) 44 00 times Medical mcg/actuati daily. Branch on inhaler Rinse mouth after each use. azelastine 2020-02 Yes [id number] 1{spray Use 1 [facility] 137 mcg 2-02 } [place] in ity of (0.1 %) 00:00: each [place] nasal spray 00 nostril 2 Med ical (two) Branch times daily. Use in each nostril as directed fluticasone 2020-02 Yes [id number] 2{puff} Inhale 2 [facility] propionate 2-02 Puffs 2 [facility]y of (FLOVENT 00:00: (two) [place] [facility]FA) 44 00 times Medical mcg/actuati daily. Branch on inhaler Rinse mouth after each use. azelastine 2020-02 Yes [id number] 1{spray Use 1 [facility] 137 mcg 2-02 } [place] ity of (0.1 %) 00:00: each [place] nasal spray 00 nostril 2 Med ical (two) Branch times daily. Use in each nostril as directed fluticasone 2020-02 Yes [id number] 2{puff} Inhale 2 [facility] propionate 2-02 Puffs 2 [facility]y of (FLOVENT 00:00: (two) [place] [facility]FA) 44 00 times Medical mcg/actuati daily. Branch on inhaler Rinse mouth after each use. azelastine 2020-02 Yes [id number] 1{spray Use 1 [facility] 137 mcg 2-02 } [place] [facility] of (0.1 %) 00:00: each [place] nasal spray 00 nostril 2 Med ical (two) Branch times daily. Use in each nostril as directed fluticasone 2020-02 Yes [id number] 2{puff} Inhale 2 [facility] propionate 2-02 Puffs 2 [facility]y of (FLOVENT 00:00: (two) [place] [facility]FA) 44 00 times Medical mcg/actuati daily. Branch on inhaler Rinse mouth after each use. azelastine 2020-02 Yes [id number] 1{spray Use 1 [facility] 137 mcg 2-02 } [place] [facility]y of (0.1 %) 00:00: each [place] nasal spray 00 nostril 2 Med ical (two) Branch times daily. Use in each nostril as directed fluticasone 2020-02 Yes [id number] 2{puff} Inhale 2 [facility] propionate 2-02 Puffs 2 [facility]y of (FLOVENT 00:00: (two) [place] [facility]FA) 44 00 times Medical mcg/actuati daily. Branch on inhaler Rinse mouth after each use. azelastine 2020-02 Yes [id number] 1{spray Use 1 [facility] 137 mcg 2-02 } [place] [facility] of (0.1 %) 00:00: each [place] nasal spray 00 nostril 2 Med ical (two) Branch times daily. Use in each nostril as directed fluticasone 2020-02 Yes [id number] 2{puff} Inhale 2 [facility] propionate 2-02 Puffs 2 ity of (FLOVENT 00:00: (two) [place] [facility]FA) 44 00 times Medical mcg/actuati daily. Branch on inhaler Rinse mouth after each use. azelastine 2020-02 Yes [id number] 1{spray Use 1 [facility] 137 mcg 2-02 } [place] [facility] of (0.1 %) 00:00: each [place] nasal spray 00 nostril 2 Med ical (two) Branch times daily. Use in each nostril as directed fluticasone 2020-02 Yes [id number] 2{puff} Inhale 2 [facility] propionate 2-02 Puffs 2 ity of (FLOVENT 00:00: (two) [place] [facility]FA) 44 00 times Medical mcg/actuati daily. Branch on inhaler Rinse mouth after each use. azelastine 2020-02 Yes [id number] 1{spray Use 1 [facility] 137 mcg 2-02 } [place] [facility] of (0.1 %) 00:00: each [place] nasal spray 00 nostril 2 Med ical (two) Branch times daily. Use in each nostril as directed fluticasone 2020-02 Yes [id number] 2{puff} Inhale 2 [facility] propionate 2-02 Puffs 2 [facility]y of (FLOVENT 00:00: (two) [place] [facility]FA) 44 00 times Medical mcg/actuati daily. Branch on inhaler Rinse mouth after each use. azelastine 2020-02 Yes [id number] 1{spray Use 1 [facility] 137 mcg 2-02 } [place] [facility] of (0.1 %) 00:00: each [place] nasal spray 00 nostril 2 Med ical (two) Branch times daily. Use in each nostril as directed fluticasone 2020-02 Yes [id number] 2{puff} Inhale 2 [facility] propionate 2-02 Puffs 2 ity of (FLOVENT 00:00: (two) [place] [facility]FA) 44 00 times Medical mcg/actuati daily. Branch on inhaler Rinse mouth after each use. azelastine 2020-02 Yes [id number] 1{spray Use 1 [facility] 137 mcg 2-02 } [place] [facility]y of (0.1 %) 00:00: each [place] nasal spray 00 nostril 2 Med ical (two) Branch times daily. Use in each nostril as directed fluticasone 2020-02 Yes [id number] 2{puff} Inhale 2 [facility] propionate 2-02 Puffs 2 [facility]y of (FLOVENT 00:00: (two) [place] [facility]FA) 44 00 times Medical mcg/actuati daily. Branch on inhaler Rinse mouth after each use. azelastine 2020-02 Yes [id number] 1{spray Use 1 [facility] 137 mcg 2-02 } [place] [facility] of (0.1 %) 00:00: each [place] nasal spray 00 nostril 2 Med ical (two) Branch times daily. Use in each nostril as directed fluticasone 2020-02 Yes [id number] 2{puff} Inhale 2 [facility] propionate 2-02 Puffs 2 [facility]y of (FLOVENT 00:00: (two) [place] [facility]FA) 44 00 times Medical mcg/actuati daily. Branch on inhaler Rinse mouth after each use. azelastine 2020-02 Yes [id number] 1{spray Use 1 [facility] 137 mcg 2-02 } [place] [facility] of (0.1 %) 00:00: each [place] nasal spray 00 nostril 2 Med ical (two) Branch times daily. Use in each nostril as directed fluticasone 2020-02 Yes [id number] 2{puff} Inhale 2 [facility] propionate 2-02 Puffs 2 ity of (FLOVENT 00:00: (two) [place] [facility]FA) 44 00 times Medical mcg/actuati daily. Branch on inhaler Rinse mouth after each use. azelastine 2020-02 Yes [id number] 1{spray Use 1 [facility] 137 mcg 2-02 } [place] [facility] of (0.1 %) 00:00: each [place] nasal spray 00 nostril 2 Med ical (two) Branch times daily. Use in each nostril as directed fluticasone 2020-02 Yes [id number] 2{puff} Inhale 2 [facility] propionate 2-02 Puffs 2 [facility]y of (FLOVENT 00:00: (two) [place] [facility]FA) 44 00 times Medical mcg/actuati daily. Branch on inhaler Rinse mouth after each use. azelastine 2020-02 Yes [id number] 1{spray Use 1 [facility] 137 mcg 2-02 } [place] [facility] of (0.1 %) 00:00: each [place] nasal spray 00 nostril 2 Med ical (two) Branch times daily. Use in each nostril as directed fluticasone 2020-02 Yes [id number] 2{puff} Inhale 2 [facility] propionate 2-02 Puffs 2 ity of (FLOVENT 00:00: (two) [place] [facility]FA) 44 00 times Medical mcg/actuati daily. Branch on inhaler Rinse mouth after each use. azelastine 2020-02 Yes [id number] 1{spray Use 1 [facility] 137 mcg 2-02 } [place] [facility] of (0.1 %) 00:00: each [place] nasal spray 00 nostril 2 Med ical (two) Branch times daily. Use in each nostril as directed fluticasone 2020-02 Yes [id number] 2{puff} Inhale 2 [facility] propionate 2-02 Puffs 2 [facility]y of (FLOVENT 00:00: (two) [place] [facility]FA) 44 00 times Medical mcg/actuati daily. Branch on inhaler Rinse mouth after each use. azelastine 2020-02 Yes [id number] 1{spray Use 1 [facility] 137 mcg 2-02 } [place] [facility] of (0.1 %) 00:00: each [place] nasal spray 00 nostril 2 Med ical (two) Branch times daily. Use in each nostril as directed fluticasone 2020-02 Yes [id number] 2{puff} Inhale 2 [facility] propionate 2-02 Puffs 2 [facility]y of (FLOVENT 00:00: (two) [place] [facility]FA) 44 00 times Medical mcg/actuati daily. Branch on inhaler Rinse mouth after each use. azelastine 2020-02 Yes [id number] 1{spray Use 1 [facility] 137 mcg 2-02 } [place] [facility] of (0.1 %) 00:00: each [place] nasal spray 00 nostril 2 Med ical (two) Branch times daily. Use in each nostril as directed fluticasone 2020-02 Yes [id number] 2{puff} Inhale 2 [facility] propionate 2-02 Puffs 2 ity of (FLOVENT 00:00: (two) [place] [facility]FA) 44 00 times Medical mcg/actuati daily. Branch on inhaler Rinse mouth after each use. azelastine 2020-02 Yes [id number] 1{spray Use 1 [facility] 137 mcg 2-02 } [place] [facility] of (0.1 %) 00:00: each [place] nasal spray 00 nostril 2 Med ical (two) Branch times daily. Use in each nostril as directed fluticasone 2020-02 Yes [id number] 2{puff} Inhale 2 [facility] propionate 2-02 Puffs 2 ity of (FLOVENT 00:00: (two) [place] [facility]FA) 44 00 times Medical mcg/actuati daily. Branch on inhaler Rinse mouth after each use. azelastine 2020-02 Yes [id number] 1{spray Use 1 [facility] 137 mcg 2-02 } [place] [facility] of (0.1 %) 00:00: each [place] nasal spray 00 nostril 2 Med ical (two) Branch times daily. Use in each nostril as directed fluticasone 2020-02 Yes [id number] 2{puff} Inhale 2 [facility] propionate 2-02 Puffs 2 ity of (FLOVENT 00:00: (two) [place] [facility]FA) 44 00 times Medical mcg/actuati daily. Branch on inhaler Rinse mouth after each use. azelastine 2020-02 Yes [id number] 1{spray Use 1 [facility] 137 mcg 2-02 } [place] [facility] of (0.1 %) 00:00: each [place] nasal spray 00 nostril 2 Med ical (two) Branch times daily. Use in each nostril as directed fluticasone 2020-02 Yes [id number] 2{puff} Inhale 2 [facility] propionate 2-02 Puffs 2 ity of (FLOVENT 00:00: (two) [place] [facility]FA) 44 00 times Medical mcg/actuati daily. Branch on inhaler Rinse mouth after each use. azelastine 2020-02 Yes [id number] 1{spray Use 1 [facility] 137 mcg 2-02 } [place] [facility] of (0.1 %) 00:00: each [place] nasal spray 00 nostril 2 Med ical (two) Branch times daily. Use in each nostril as directed fluticasone 2020-02 Yes [id number] 2{puff} Inhale 2 [facility] propionate 2-02 Puffs 2 ity of (FLOVENT 00:00: (two) [place] [facility]FA) 44 00 times Medical mcg/actuati daily. Branch on inhaler Rinse mouth after each use. azelastine 2020-02 Yes [id number] 1{spray Use 1 [facility] 137 mcg 2-02 } [place] [facility] of (0.1 %) 00:00: each [place] nasal spray 00 nostril 2 Med ical (two) Branch times daily. Use in each nostril as directed fluticasone 2020-02 Yes [id number] 2{puff} Inhale 2 [facility] propionate 2-02 Puffs 2 ity of (FLOVENT 00:00: (two) [place] [facility]FA) 44 00 times Medical mcg/actuati daily. Branch on inhaler Rinse mouth after each use. azelastine 2020-02 Yes [id number] 1{spray Use 1 [facility] 137 mcg 2-02 } [place] [facility] of (0.1 %) 00:00: each [place] nasal spray 00 nostril 2 Med ical (two) Branch times daily. Use in each nostril as directed fluticasone 2020-02 Yes [id number] 2{puff} Inhale 2 [facility] propionate 2-02 Puffs 2 ity of (FLOVENT 00:00: (two) [place] [facility]FA) 44 00 times Medical mcg/actuati daily. Branch on inhaler Rinse mouth after each use. azelastine 2020-02 Yes [id number] 1{spray Use 1 [facility] 137 mcg 2-02 } [place] in [facility] of (0.1 %) 00:00: each [place] nasal spray 00 nostril 2 Med ical (two) Branch times daily. Use in each nostril as directed fluticasone 2020-02 Yes [id number] 2{puff} Inhale 2 [facility] propionate 2-02 Puffs 2 ity of (FLOVENT 00:00: (two) [place] [facility]FA) 44 00 times Medical mcg/actuati daily. Branch on inhaler Rinse mouth after each use. azelastine 2020-02 Yes [id number] 1{spray Use 1 [facility] 137 mcg 2-02 } [place] [facility] of (0.1 %) 00:00: each [place] nasal spray 00 nostril 2 Med ical (two) Branch times daily. Use in each nostril as directed fluticasone 2020-02 Yes [id number] 2{puff} Inhale 2 [facility] propionate 2-02 Puffs 2 ity of (FLOVENT 00:00: (two) [place] [facility]FA) 44 00 times Medical mcg/actuati daily. Branch on inhaler Rinse mouth after each use. azelastine 2020-02 Yes [id number] 1{spray Use 1 [facility] 137 mcg 2-02 } [place] in [facility] of (0.1 %) 00:00: each [place] nasal spray 00 nostril 2 Med ical (two) Branch times daily. Use in each nostril as directed fluticasone 2020-02 Yes [id number] 2{puff} Inhale 2 [facility] propionate 2-02 Puffs 2 ity of (FLOVENT 00:00: (two) [place] [facility]FA) 44 00 times Medical mcg/actuati daily. Branch on inhaler Rinse mouth after each use. azelastine 2020-02 Yes [id number] 1{spray Use 1 [facility] 137 mcg 2-02 } [place] in [facility]y of (0.1 %) 00:00: each [place] nasal spray 00 nostril 2 Med ical (two) Branch times daily. Use in each nostril as directed fluticasone 2020-02 Yes [id number] 2{puff} Inhale 2 [facility] propionate 2-02 Puffs 2 ity of (FLOVENT 00:00: (two) [place] [facility]FA) 44 00 times Medical mcg/actuati daily. Branch on inhaler Rinse mouth after each use. azelastine 2020-02 Yes [id number] 1{spray Use 1 [facility] 137 mcg 2-02 } [place] [facility]y of (0.1 %) 00:00: each [place] nasal spray 00 nostril 2 Med ical (two) Branch times daily. Use in each nostril as directed fluticasone 2020-02 Yes [id number] 2{puff} Inhale 2 [facility] propionate 2-02 Puffs 2 ity of (FLOVENT 00:00: (two) [place] [facility]FA) 44 00 times Medical mcg/actuati daily. Branch on inhaler Rinse mouth after each use. azelastine 2020-02 Yes [id number] 1{spray Use 1 [facility] 137 mcg 2-02 } [place] in [facility]y of (0.1 %) 00:00: each [place] nasal spray 00 nostril 2 Med ical (two) Branch times daily. Use in each nostril as directed fluticasone 2020-02 Yes [id number] 2{puff} Inhale 2 [facility] propionate 2-02 Puffs 2 ity of (FLOVENT 00:00: (two) [place] [facility]FA) 44 00 times Medical mcg/actuati daily. Branch on inhaler Rinse mouth after each use. azelastine 2020-02 Yes [id number] 1{spray Use 1 [facility] 137 mcg 2-02 } [place] in [facility]y of (0.1 %) 00:00: each [place] nasal spray 00 nostril 2 Med ical (two) Branch times daily. Use in each nostril as directed fluticasone 2020-02 Yes [id number] 2{puff} Inhale 2 [facility] propionate 2-02 Puffs 2 ity of (FLOVENT 00:00: (two) [place] [facility]FA) 44 00 times Medical mcg/actuati daily. Branch on inhaler Rinse mouth after each use. azelastine 2020-02 Yes [id number] 1{spray Use 1 [facility] 137 mcg 2-02 } [place] in [facility]y of (0.1 %) 00:00: each [place] nasal spray 00 nostril 2 Med ical (two) Branch times daily. Use in each nostril as directed fluticasone 2020-02 Yes [id number] 2{puff} Inhale 2 [facility] propionate 2-02 Puffs 2 ity of (FLOVENT 00:00: (two) [place] [facility]FA) 44 00 times Medical mcg/actuati daily. Branch on inhaler Rinse mouth after each use. azelastine 2020-02 Yes [id number] 1{spray Use 1 [facility] 137 mcg 2-02 } [place] in [facility] of (0.1 %) 00:00: each [place] nasal spray 00 nostril 2 Med ical (two) Branch times daily. Use in each nostril as directed fluticasone 2020-02 Yes [id number] 2{puff} Inhale 2 [facility] propionate 2-02 Puffs 2 ity of (FLOVENT 00:00: (two) [place] [facility]FA) 44 00 times Medical mcg/actuati daily. Branch on inhaler Rinse mouth after each use. azelastine 2020-02 Yes [id number] 1{spray Use 1 [facility] 137 mcg 2-02 } [place] in [facility] of (0.1 %) 00:00: each [place] nasal spray 00 nostril 2 Med ical (two) Branch times daily. Use in each nostril as directed fluticasone 2020-02 Yes [id number] 2{puff} Inhale 2 [facility] propionate 2-02 Puffs 2 ity of (FLOVENT 00:00: (two) [place] [facility]FA) 44 00 times Medical mcg/actuati daily. Branch on inhaler Rinse mouth after each use. azelastine 2020-02 Yes [id number] 1{spray Use 1 [facility] 137 mcg 2-02 } [place] in [facility] of (0.1 %) 00:00: each [place] nasal spray 00 nostril 2 Med ical (two) Branch times daily. Use in each nostril as directed fluticasone 2020-02 Yes [id number] 2{puff} Inhale 2 [facility] propionate 2-02 Puffs 2 ity of (FLOVENT 00:00: (two) [place] [facility]FA) 44 00 times Medical mcg/actuati daily. Branch on inhaler Rinse mouth after each use. azelastine 2020-02 Yes [id number] 1{spray Use 1 [facility] 137 mcg 2-02 } [place] in [facility] of (0.1 %) 00:00: each [place] nasal spray 00 nostril 2 Med ical (two) Branch times daily. Use in each nostril as directed fluticasone 2020-02 Yes [id number] 2{puff} Inhale 2 [facility] propionate 2-02 Puffs 2 ity of (FLOVENT 00:00: (two) [place] [facility]FA) 44 00 times Medical mcg/actuati daily. Branch on inhaler Rinse mouth after each use. azelastine 2020-02 Yes [id number] 1{spray Use 1 [facility] 137 mcg 2-02 } [place] in [facility] of (0.1 %) 00:00: each [place] nasal spray 00 nostril 2 Med ical (two) Branch times daily. Use in each nostril as directed fluticasone 2020-02 Yes [id number] 2{puff} Inhale 2 [facility] propionate 2-02 Puffs 2 ity of (FLOVENT 00:00: (two) [place] [facility]FA) 44 00 times Medical mcg/actuati daily. Branch on inhaler Rinse mouth after each use. azelastine 2020-02 Yes [id number] 1{spray Use 1 [facility] 137 mcg 2-02 } [place] [facility] of (0.1 %) 00:00: each [place] nasal spray 00 nostril 2 Med ical (two) Branch times daily. Use in each nostril as directed fluticasone 2020-02 Yes [id number] 2{puff} Inhale 2 [facility] propionate 2-02 Puffs 2 ity of (FLOVENT 00:00: (two) [place] [facility]FA) 44 00 times Medical mcg/actuati daily. Branch on inhaler Rinse mouth after each use. azelastine 2020-02 Yes [id number] 1{spray Use 1 [facility] 137 mcg 2-02 } [place] in [facility] of (0.1 %) 00:00: each [place] nasal spray 00 nostril 2 Med ical (two) Branch times daily. Use in each nostril as directed fluticasone 2020-02 Yes [id number] 2{puff} Inhale 2 [facility] propionate 2-02 Puffs 2 ity of (FLOVENT 00:00: (two) [place] [facility]FA) 44 00 times Medical mcg/actuati daily. Branch on inhaler Rinse mouth after each use. azelastine 2020-02 Yes [id number] 1{spray Use 1 [facility] 137 mcg 2-02 } [place] in [facility] of (0.1 %) 00:00: each [place] nasal spray 00 nostril 2 Med ical (two) Branch times daily. Use in each nostril as directed fluticasone 2020-02 Yes [id number] 2{puff} Inhale 2 [facility] propionate 2-02 Puffs 2 ity of (FLOVENT 00:00: (two) [place] [facility]FA) 44 00 times Medical mcg/actuati daily. Branch on inhaler Rinse mouth after each use. azelastine 2020-02 Yes [id number] 1{spray Use 1 [facility] 137 mcg 2-02 } [place] in [facility] of (0.1 %) 00:00: each [place] nasal spray 00 nostril 2 Med ical (two) Branch times daily. Use in each nostril as directed fluticasone 2020-02 Yes [id number] 2{puff} Inhale 2 [facility] propionate 2-02 Puffs 2 ity of (FLOVENT 00:00: (two) [place] [facility]FA) 44 00 times Medical mcg/actuati daily. Branch on inhaler Rinse mouth after each use. azelastine 2020-02 Yes [id number] 1{spray Use 1 [facility] 137 mcg 2-02 } [place] in [facility] of (0.1 %) 00:00: each [place] nasal spray 00 nostril 2 Med ical (two) Branch times daily. Use in each nostril as directed fluticasone 2020-02 Yes [id number] 2{puff} Inhale 2 [facility] propionate 2-02 Puffs 2 ity of (FLOVENT 00:00: (two) [place] [facility]FA) 44 00 times Medical mcg/actuati daily. Branch on inhaler Rinse mouth after each use. azelastine 2020-02 Yes [id number] 1{spray Use 1 [facility] 137 mcg 2-02 } [place] in [facility] of (0.1 %) 00:00: each [place] nasal spray 00 nostril 2 Med ical (two) Branch times daily. Use in each nostril as directed fluticasone 2020-02 Yes [id number] 2{puff} Inhale 2 [facility] propionate 2-02 Puffs 2 ity of (FLOVENT 00:00: (two) [place] [facility]FA) 44 00 times Medical mcg/actuati daily. Branch on inhaler Rinse mouth after each use. azelastine 2020-02 Yes [id number] 1{spray Use 1 [facility] 137 mcg 2-02 } [place] in [facility] of (0.1 %) 00:00: each [place] nasal spray 00 nostril 2 Med ical (two) Branch times daily. Use in each nostril as directed fluticasone 2020-02 Yes [id number] 2{puff} Inhale 2 [facility] propionate 2-02 Puffs 2 ity of (FLOVENT 00:00: (two) [place] [facility]FA) 44 00 times Medical mcg/actuati daily. Branch on inhaler Rinse mouth after each use. azelastine 2020-02 Yes [id number] 1{spray Use 1 [facility] 137 mcg 2-02 } [place] in [facility] of (0.1 %) 00:00: each [place] nasal spray 00 nostril 2 Med ical (two) Branch times daily. Use in each nostril as directed fluticasone 2020-02 Yes [id number] 2{puff} Inhale 2 [facility] propionate 2-02 Puffs 2 ity of (FLOVENT 00:00: (two) [place] [facility]FA) 44 00 times Medical mcg/actuati daily. Branch on inhaler Rinse mouth after each use. azelastine 2020-02 Yes [id number] 1{spray Use 1 [facility] 137 mcg 2-02 } [place] in [facility] of (0.1 %) 00:00: each [place] nasal spray 00 nostril 2 Med ical (two) Branch times daily. Use in each nostril as directed fluticasone 2020-02 Yes [id number] 2{puff} Inhale 2 [facility] propionate 2-02 Puffs 2 ity of (FLOVENT 00:00: (two) [place] [facility]FA) 44 00 times Medical mcg/actuati daily. Branch on inhaler Rinse mouth after each use. azelastine 2020-02 Yes [id number] 1{spray Use 1 [facility] 137 mcg 2-02 } [place] in [facility] of (0.1 %) 00:00: each [place] nasal spray 00 nostril 2 Med ical (two) Branch times daily. Use in each nostril as directed fluticasone 2020-02 Yes [id number] 2{puff} Inhale 2 [facility] propionate 2-02 Puffs 2 ity of (FLOVENT 00:00: (two) [place] [facility]FA) 44 00 times Medical mcg/actuati daily. Branch on inhaler Rinse mouth after each use. azelastine 2020-02 Yes [id number] 1{spray Use 1 [facility] 137 mcg 2-02 } [place] in [facility] of (0.1 %) 00:00: each [place] nasal spray 00 nostril 2 Med ical (two) Branch times daily. Use in each nostril as directed fluticasone 2020-02 Yes [id number] 2{puff} Inhale 2 [facility] propionate 2-02 Puffs 2 ity of (FLOVENT 00:00: (two) [place] [facility]FA) 44 00 times Medical mcg/actuati daily. Branch on inhaler Rinse mouth after each use. azelastine 2020-02 Yes [id number] 1{spray Use 1 [facility] 137 mcg 2-02 } [place] in [facility] of (0.1 %) 00:00: each [place] nasal spray 00 nostril 2 Med ical (two) Branch times daily. Use in each nostril as directed fluticasone 2020-02 Yes [id number] 2{puff} Inhale 2 [facility] propionate 2-02 Puffs 2 ity of (FLOVENT 00:00: (two) [place] [facility]FA) 44 00 times Medical mcg/actuati daily. Branch on inhaler Rinse mouth after each use. azelastine 2020-02 Yes [id number] 1{spray Use 1 [facility] 137 mcg 2-02 } [place] in [facility] of (0.1 %) 00:00: each [place] nasal spray 00 nostril 2 Med ical (two) Branch times daily. Use in each nostril as directed fluticasone 2020-02 Yes [id number] 2{puff} Inhale 2 [facility] propionate 2-02 Puffs 2 ity of (FLOVENT 00:00: (two) [place] [facility]FA) 44 00 times Medical mcg/actuati daily. Branch on inhaler Rinse mouth after each use. azelastine 2020-02 Yes [id number] 1{spray Use 1 [facility] 137 mcg 2-02 } [place] in [facility] of (0.1 %) 00:00: each [place] nasal spray 00 nostril 2 Med ical (two) Branch times daily. Use in each nostril as directed fluticasone 2020-02 Yes [id number] 2{puff} Inhale 2 [facility] propionate 2-02 Puffs 2 ity of (FLOVENT 00:00: (two) [place] [facility]FA) 44 00 times Medical mcg/actuati daily. Branch on inhaler Rinse mouth after each use. azelastine 2020-02 Yes [id number] 1{spray Use 1 [facility] 137 mcg 2-02 } [place] in [facility] of (0.1 %) 00:00: each [place] nasal spray 00 nostril 2 Med ical (two) Branch times daily. Use in each nostril as directed fluticasone 2020-02 Yes [id number] 2{puff} Inhale 2 [facility] propionate 2-02 Puffs 2 ity of (FLOVENT 00:00: (two) [place] [facility]FA) 44 00 times Medical mcg/actuati daily. Branch on inhaler Rinse mouth after each use. azelastine 2020-02 Yes [id number] 1{spray Use 1 [facility] 137 mcg 2-02 } [place] in [facility] of (0.1 %) 00:00: each [place] nasal spray 00 nostril 2 Med ical (two) Branch times daily. Use in each nostril as directed fluticasone 2020-02 Yes [id number] 2{puff} Inhale 2 [facility] propionate 2-02 Puffs 2 ity of (FLOVENT 00:00: (two) [place] [facility]FA) 44 00 times Medical mcg/actuati daily. Branch on inhaler Rinse mouth after each use. azelastine 2020-02 Yes [id number] 1{spray Use 1 [facility] 137 mcg 2-02 } [place] in [facility] of (0.1 %) 00:00: each [place] nasal spray 00 nostril 2 Med ical (two) Branch times daily. Use in each nostril as directed fluticasone 2020-02 Yes [id number] 2{puff} Inhale 2 [facility] propionate 2-02 Puffs 2 ity of (FLOVENT 00:00: (two) [place] [facility]FA) 44 00 times Medical mcg/actuati daily. Branch on inhaler Rinse mouth after each use. azelastine 2020-02 Yes [id number] 1{spray Use 1 [facility] 137 mcg 2-02 } [place] in [facility]y of (0.1 %) 00:00: each [place] nasal spray 00 nostril 2 Med ical (two) Branch times daily. Use in each nostril as directed fluticasone 2020-02 Yes [id number] 2{puff} Inhale 2 [facility] propionate 2-02 Puffs 2 ity of (FLOVENT 00:00: (two) [place] [facility]FA) 44 00 times Medical mcg/actuati daily. Branch on inhaler Rinse mouth after each use. azelastine 2020-02 Yes [id number] 1{spray Use 1 [facility] 137 mcg 2-02 } [place] in [facility] of (0.1 %) 00:00: each [place] nasal spray 00 nostril 2 Med ical (two) Branch times daily. Use in each nostril as directed fluticasone 2020-02 Yes [id number] 2{puff} Inhale 2 [facility] propionate 2-02 Puffs 2 ity of (FLOVENT 00:00: (two) [place] [facility]FA) 44 00 times Medical mcg/actuati daily. Branch on inhaler Rinse mouth after each use. azelastine 2020-02 Yes [id number] 1{spray Use 1 [facility] 137 mcg 2-02 } [place] [facility] of (0.1 %) 00:00: each [place] nasal spray 00 nostril 2 Med ical (two) Branch times daily. Use in each nostril as directed fluticasone 2020-02 Yes [id number] 2{puff} Inhale 2 [facility] propionate 2-02 Puffs 2 ity of (FLOVENT 00:00: (two) [place] [facility]FA) 44 00 times Medical mcg/actuati daily. Branch on inhaler Rinse mouth after each use. azelastine 2020-02 Yes [id number] 1{spray Use 1 [facility] 137 mcg 2-02 } [place] [facility] of (0.1 %) 00:00: each [place] nasal spray 00 nostril 2 Med ical (two) Branch times daily. Use in each nostril as directed fluticasone 2020-02 Yes [id number] 2{puff} Inhale 2 [facility] propionate 2-02 Puffs 2 ity of (FLOVENT 00:00: (two) [place] [facility]FA) 44 00 times Medical mcg/actuati daily. Branch on inhaler Rinse mouth after each use. azelastine 2020-02 Yes [id number] 1{spray Use 1 [facility] 137 mcg 2-02 } [place] in [facility]y of (0.1 %) 00:00: each [place] nasal spray 00 nostril 2 Med ical (two) Branch times daily. Use in each nostril as directed fluticasone 2020-02 Yes [id number] 2{puff} Inhale 2 [facility] propionate 2-02 Puffs 2 ity of (FLOVENT 00:00: (two) [place] [facility]FA) 44 00 times Medical mcg/actuati daily. Branch on inhaler Rinse mouth after each use. azelastine 2020-02 Yes [id number] 1{spray Use 1 [facility] 137 mcg 2-02 } [place] in [facility]y of (0.1 %) 00:00: each [place] nasal spray 00 nostril 2 Med ical (two) Branch times daily. Use in each nostril as directed fluticasone 2020-02 Yes [id number] 2{puff} Inhale 2 [facility] propionate 2-02 Puffs 2 ity of (FLOVENT 00:00: (two) [place] HFA) 44 00 times Medical mcg/actuati daily. Branch on inhaler Rinse mouth after each use. azelastine 2020-02 Yes [id number] 1{spray Use 1 [facility] 137 mcg 2-02 } [place] in [facility] of (0.1 %) 00:00: each [place] nasal spray 00 nostril 2 Med ical (two) Branch times daily. Use in each nostril as directed fluticasone 2020-02 Yes [id number] 2{puff} Inhale 2 [facility] propionate 2-02 Puffs 2 ity of (FLOVENT 00:00: (two) [place] HFA) 44 00 times Medical mcg/actuati daily. Branch on inhaler Rinse mouth after each use. azelastine 2020-02 Yes [id number] 1{spray Use 1 [facility] 137 mcg 2-02 } [facility] in ity of (0.1 %) 00:00: each [place] nasal spray 00 nostril 2 Med ical (two) Branch times daily. Use in each nostril as directed fluticasone 2020-02 Yes [id number] 2{puff} Inhale 2 [facility] propionate 2-02 Puffs 2 ity of (FLOVENT 00:00: (two) [place] HFA) 44 00 times Medical mcg/actuati daily. Branch on inhaler Rinse mouth after each use. azelastine 2020-02 Yes [id number] 1{spray Use 1 [facility] 137 mcg 2-02 } [place] in ity of (0.1 %) 00:00: each [place] nasal spray 00 nostril 2 Med ical (two) Branch times daily. Use in each nostril as directed fluticasone 2020-02 Yes [id number] 2{puff} Inhale 2 [facility] propionate 2-02 Puffs 2 ity of (FLOVENT 00:00: (two) [place] HFA) 44 00 times Medical mcg/actuati daily. Branch on inhaler Rinse mouth after each use. azelastine 2020-02 Yes [id number] 1{spray Use 1 [facility] 137 mcg 2-02 } [place] in ity of (0.1 %) 00:00: each [place] nasal spray 00 nostril 2 Med ical (two) Branch times daily. Use in each nostril as directed fluticasone 2020-02 Yes [id number] 2{puff} Inhale 2 [facility] propionate 2-02 Puffs 2 ity of (FLOVENT 00:00: (two) [place] HFA) 44 00 times Medical mcg/actuati daily. Branch on inhaler Rinse mouth after each use. azelastine 2020-02 Yes [id number] 1{spray Use 1 [facility] 137 mcg 2-02 } [place] in ity of (0.1 %) 00:00: each [place] nasal spray 00 nostril 2 Med ical (two) Branch times daily. Use in each nostril as directed fluticasone 2020-02 Yes [id number] 2{puff} Inhale 2 [facility] propionate 2-02 Puffs 2 ity of (FLOVENT 00:00: (two) [place] HFA) 44 00 times Medical mcg/actuati daily. Branch on inhaler Rinse mouth after each use. azelastine 2020-02 Yes [id number] 1{spray Use 1 [facility] 137 mcg 2-02 } [place] in ity of (0.1 %) 00:00: each [place] nasal spray 00 nostril 2 Med ical (two) Branch times daily. Use in each nostril as directed fluticasone 2020-02 Yes [id number] 2{puff} Inhale 2 [facility] propionate 2-02 Puffs 2 ity of (FLOVENT 00:00: (two) [place] HFA) 44 00 times Medical mcg/actuati daily. Branch on inhaler Rinse mouth after each use. azelastine 2020-02 Yes [id number] 1{spray Use 1 [facility] 137 mcg 2-02 } [place] in ity of (0.1 %) 00:00: each [place] nasal spray 00 nostril 2 Med ical (two) Branch times daily. Use in each nostril as directed fluticasone 2020-02 Yes [id number] 2{puff} Inhale 2 [facility] propionate 2-02 Puffs 2 ity of (FLOVENT 00:00: (two) [place] HFA) 44 00 times Medical mcg/actuati daily. Branch on inhaler Rinse mouth after each use. azelastine 2020-02 Yes [id number] 1{spray Use 1 [facility] 137 mcg 2-02 } [place] in [facility]y of (0.1 %) 00:00: each [place] nasal spray 00 nostril 2 Med ical (two) Branch times daily. Use in each nostril as directed fluticasone 2020-02 Yes [id number] 2{puff} Inhale 2 [facility] propionate 2-02 Puffs 2 ity of (FLOVENT 00:00: (two) [place] HFA) 44 00 times Medical mcg/actuati daily. Branch on inhaler Rinse mouth after each use. azelastine 2020-02 Yes [id number] 1{spray Use 1 [facility] 137 mcg 2-02 } [place] in ity of (0.1 %) 00:00: each [place] nasal spray 00 nostril 2 Med ical (two) Branch times daily. Use in each nostril as directed fluticasone 2020-02 Yes [id number] 2{puff} Inhale 2 [facility] propionate 2-02 Puffs 2 ity of (FLOVENT 00:00: (two) [place] HFA) 44 00 times Medical mcg/actuati daily. Branch on inhaler Rinse mouth after each use. azelastine 2020-02 Yes [id number] 1{spray Use 1 [facility] 137 mcg 2-02 } [place] in [facility]y of (0.1 %) 00:00: each [place] nasal spray 00 nostril 2 Med ical (two) Branch times daily. Use in each nostril as directed fluticasone 2020-02 Yes [id number] 2{puff} Inhale 2 [facility] propionate 2-02 Puffs 2 ity of (FLOVENT 00:00: (two) [place] HFA) 44 00 times Medical mcg/actuati daily. Branch on inhaler Rinse mouth after each use. azelastine 2020-02 Yes [id number] 1{spray Use 1 [facility] 137 mcg 2-02 } [place] in [facility]y of (0.1 %) 00:00: each [place] nasal spray 00 nostril 2 Med ical (two) Branch times daily. Use in each nostril as directed fluticasone 2020-02 Yes [id number] 2{puff} Inhale 2 [facility] propionate 2-02 Puffs 2 ity of (FLOVENT 00:00: (two) [place] HFA) 44 00 times Medical mcg/actuati daily. Branch on inhaler Rinse mouth after each use. azelastine 2020-02 Yes [id number] 1{spray Use 1 [facility] 137 mcg 2-02 } [place] in [facility]y of (0.1 %) 00:00: each [place] nasal spray 00 nostril 2 Med ical (two) Branch times daily. Use in each nostril as directed fluticasone 2020-02 Yes [id number] 2{puff} Inhale 2 [facility] propionate 2-02 Puffs 2 ity of (FLOVENT 00:00: (two) [place] HFA) 44 00 times Medical mcg/actuati daily. Branch on inhaler Rinse mouth after each use. azelastine 2020-02 Yes [id number] 1{spray Use 1 [facility] 137 mcg 2-02 } [place] in [facility]y of (0.1 %) 00:00: each [place] nasal spray 00 nostril 2 Med ical (two) Branch times daily. Use in each nostril as directed fluticasone 2020-02 Yes [id number] 2{puff} Inhale 2 [facility] propionate 2-02 Puffs 2 ity of (FLOVENT 00:00: (two) [place] HFA) 44 00 times Medical mcg/actuati daily. Branch on inhaler Rinse mouth after each use. azelastine 2020-02 Yes [id number] 1{spray Use 1 [facility] 137 mcg 2-02 } [place] in [facility]y of (0.1 %) 00:00: each [place] nasal spray 00 nostril 2 Med ical (two) Branch times daily. Use in each nostril as directed fluticasone 2020-02 Yes [id number] 2{puff} Inhale 2 [facility] propionate 2-02 Puffs 2 ity of (FLOVENT 00:00: (two) [place] HFA) 44 00 times Medical mcg/actuati daily. Branch on inhaler Rinse mouth after each use. azelastine 2020-02 Yes [id number] 1{spray Use 1 [facility] 137 mcg 2-02 } [place] in [facility] of (0.1 %) 00:00: each [place] nasal spray 00 nostril 2 Med ical (two) Branch times daily. Use in each nostril as directed fluticasone 2020-02 Yes [id number] 2{puff} Inhale 2 [facility] propionate 2-02 Puffs 2 ity of (FLOVENT 00:00: (two) [place] HFA) 44 00 times Medical mcg/actuati daily. Branch on inhaler Rinse mouth after each use. azelastine 2020-02 Yes [id number] 1{spray Use 1 [facility] 137 mcg 2-02 } [place] in [facility]y of (0.1 %) 00:00: each [place] nasal spray 00 nostril 2 Med ical (two) Branch times daily. Use in each nostril as directed fluticasone 2020-02 Yes [id number] 2{puff} Inhale 2 [facility] propionate 2-02 Puffs 2 ity of (FLOVENT 00:00: (two) [place] HFA) 44 00 times Medical mcg/actuati daily. Branch on inhaler Rinse mouth after each use. azelastine 2020-02 Yes [id number] 1{spray Use 1 [facility] 137 mcg 2-02 } [place] in [facility]y of (0.1 %) 00:00: each [place] nasal spray 00 nostril 2 Med ical (two) Branch times daily. Use in each nostril as directed fluticasone 2020-02 Yes [id number] 2{puff} Inhale 2 [facility] propionate 2-02 Puffs 2 ity of (FLOVENT 00:00: (two) [place] HFA) 44 00 times Medical mcg/actuati daily. Branch on inhaler Rinse mouth after each use. azelastine 2020-02 Yes [id number] 1{spray Use 1 [facility] 137 mcg 2-02 } [place] in [facility]y of (0.1 %) 00:00: each [place] nasal spray 00 nostril 2 Med ical (two) Branch times daily. Use in each nostril as directed fluticasone 2020-02 Yes [id number] 2{puff} Inhale 2 [facility] propionate 2-02 Puffs 2 ity of (FLOVENT 00:00: (two) [place] HFA) 44 00 times Medical mcg/actuati daily. Branch on inhaler Rinse mouth after each use. azelastine 2020-02 Yes [id number] 1{spray Use 1 [facility] 137 mcg 2-02 } [place] in it[facility] of (0.1 %) 00:00: each [place] nasal spray 00 nostril 2 Med ical (two) Branch times daily. Use in each nostril as directed fluticasone 2020-02 Yes [id number] 2{puff} Inhale 2 [facility] propionate 2-02 Puffs 2 ity of (FLOVENT 00:00: (two) [place] HFA) 44 00 times Medical mcg/actuati daily. Branch on inhaler Rinse mouth after each use. azelastine 2020-02 Yes [id number] 1{spray Use 1 [facility] 137 mcg 2-02 } [place] in ity of (0.1 %) 00:00: each [place] nasal spray 00 nostril 2 Med ical (two) Branch times daily. Use in each nostril as directed fluticasone 2020-02 Yes [id number] 2{puff} Inhale 2 [facility] propionate 2-02 Puffs 2 ity of (FLOVENT 00:00: (two) [place] HFA) 44 00 times Medical mcg/actuati daily. Branch on inhaler Rinse mouth after each use. azelastine 2020-02 Yes [id number] 1{spray Use 1 [facility] 137 mcg 2-02 } [place] in ity of (0.1 %) 00:00: each [place] nasal spray 00 nostril 2 Med ical (two) Branch times daily. Use in each nostril as directed fluticasone 2020-02 Yes [id number] 2{puff} Inhale 2 [facility] propionate 2-02 Puffs 2 ity of (FLOVENT 00:00: (two) [place] HFA) 44 00 times Medical mcg/actuati daily. Branch on inhaler Rinse mouth after each use. azelastine 2020-02 Yes [id number] 1{spray Use 1 [facility] 137 mcg 2-02 } [place] in ity of (0.1 %) 00:00: each [place] nasal spray 00 nostril 2 Med ical (two) Branch times daily. Use in each nostril as directed fluticasone 2020-02 Yes [id number] 2{puff} Inhale 2 [facility] propionate 2-02 Puffs 2 ity of (FLOVENT 00:00: (two) [place] HFA) 44 00 times Medical mcg/actuati daily. Branch on inhaler Rinse mouth after each use. azelastine 2020-02 Yes [id number] 1{spray Use 1 [facility] 137 mcg 2-02 } [place] in ity of (0.1 %) 00:00: each [place] nasal spray 00 nostril 2 Med ical (two) Branch times daily. Use in each nostril as directed fluticasone 2020-02 Yes [id number] 2{puff} Inhale 2 [facility] propionate 2-02 Puffs 2 ity of (FLOVENT 00:00: (two) [place] HFA) 44 00 times Medical mcg/actuati daily. Branch on inhaler Rinse mouth after each use. azelastine 2020-02 Yes [id number] 1{spray Use 1 [facility] 137 mcg 2-02 } [place] in ity of (0.1 %) 00:00: each [place] nasal spray 00 nostril 2 Med ical (two) Branch times daily. Use in each nostril as directed fluticasone 2020-02 Yes [id number] 2{puff} Inhale 2 [facility] propionate 2-02 Puffs 2 ity of (FLOVENT 00:00: (two) [place] HFA) 44 00 times Medical mcg/actuati daily. Branch on inhaler Rinse mouth after each use. azelastine 2020-02 Yes [id number] 1{spray Use 1 [facility] 137 mcg 2-02 } [place] in ity of (0.1 %) 00:00: each [place] nasal spray 00 nostril 2 Med ical (two) Branch times daily. Use in each nostril as directed fluticasone 2020-02 Yes [id number] 2{puff} Inhale 2 [facility] propionate 2-02 Puffs 2 ity of (FLOVENT 00:00: (two) [place] HFA) 44 00 times Medical mcg/actuati daily. Branch on inhaler Rinse mouth after each use. azelastine 2020-02 Yes [id number] 1{spray Use 1 [facility] 137 mcg 2-02 } [place] in ity of (0.1 %) 00:00: each [place] nasal spray 00 nostril 2 Med ical (two) Branch times daily. Use in each nostril as directed fluticasone 2020-02 Yes [id number] 2{puff} Inhale 2 [facility] propionate 2-02 Puffs 2 ity of (FLOVENT 00:00: (two) [place] HFA) 44 00 times Medical mcg/actuati daily. Branch on inhaler Rinse mouth after each use. azelastine 2020-02 Yes [id number] 1{spray Use 1 [facility] 137 mcg 2-02 } [place] in ity of (0.1 %) 00:00: each [place] nasal spray 00 nostril 2 Med ical (two) Branch times daily. Use in each nostril as directed fluticasone 2020-02 Yes [id number] 2{puff} Inhale 2 [facility] propionate 2-02 Puffs 2 ity of (FLOVENT 00:00: (two) [place] HFA) 44 00 times Medical mcg/actuati daily. Branch on inhaler Rinse mouth after each use. azelastine 2020-02 Yes [id number] 1{spray Use 1 [facility] 137 mcg 2-02 } [place] in ity of (0.1 %) 00:00: each [place] nasal spray 00 nostril 2 Med ical (two) Branch times daily. Use in each nostril as directed fluticasone 2020-02 Yes [id number] 2{puff} Inhale 2 [facility] propionate 2-02 Puffs 2 ity of (FLOVENT 00:00: (two) [place] HFA) 44 00 times Medical mcg/actuati daily. Branch on inhaler Rinse mouth after each use. azelastine 2020-02 Yes [id number] 1{spray Use 1 [facility] 137 mcg 2-02 } [place] in ity of (0.1 %) 00:00: each [place] nasal spray 00 nostril 2 Med ical (two) Branch times daily. Use in each nostril as directed fluticasone 2020-02 Yes [id number] 2{puff} Inhale 2 [facility] propionate 2-02 Puffs 2 ity of (FLOVENT 00:00: (two) [place] HFA) 44 00 times Medical mcg/actuati daily. Branch on inhaler Rinse mouth after each use. azelastine 2020-02 Yes [id number] 1{spray Use 1 [facility] 137 mcg 2-02 } [place] in ity of (0.1 %) 00:00: each [place] nasal spray 00 nostril 2 Med ical (two) Branch times daily. Use in each nostril as directed fluticasone 2020-02 Yes [id number] 2{puff} Inhale 2 [facility] propionate 2-02 Puffs 2 ity of (FLOVENT 00:00: (two) [place] HFA) 44 00 times Medical mcg/actuati daily. Branch on inhaler Rinse mouth after each use. azelastine 2020-02 Yes [id number] 1{spray Use 1 [facility] 137 mcg 2-02 } [place] in ity of (0.1 %) 00:00: each [place] nasal spray 00 nostril 2 Med ical (two) Branch times daily. Use in each nostril as directed fluticasone 2020-02 Yes [id number] 2{puff} Inhale 2 [facility] propionate 2-02 Puffs 2 ity of (FLOVENT 00:00: (two) [place] HFA) 44 00 times Medical mcg/actuati daily. Branch on inhaler Rinse mouth after each use. azelastine 2020-02 Yes [id number] 1{spray Use 1 [facility] 137 mcg 2-02 } [place] in ity of (0.1 %) 00:00: each [place] nasal spray 00 nostril 2 Med ical (two) Branch times daily. Use in each nostril as directed fluticasone 2020-02 Yes [id number] 2{puff} Inhale 2 [facility] propionate 2-02 Puffs 2 ity of (FLOVENT 00:00: (two) [place] HFA) 44 00 times Medical mcg/actuati daily. Branch on inhaler Rinse mouth after each use. azelastine 2020-02 Yes [id number] 1{spray Use 1 [facility] 137 mcg 2-02 } [place] in ity of (0.1 %) 00:00: each [place] nasal spray 00 nostril 2 Med ical (two) Branch times daily. Use in each nostril as directed fluticasone 2020-02 Yes [id number] 2{puff} Inhale 2 [facility] propionate 2-02 Puffs 2 ity of (FLOVENT 00:00: (two) [place] HFA) 44 00 times Medical mcg/actuati daily. Branch on inhaler Rinse mouth after each use. azelastine 2020-02 Yes [id number] 1{spray Use 1 [facility] 137 mcg 2-02 } [place] in ity of (0.1 %) 00:00: each [place] nasal spray 00 nostril 2 Med ical (two) Branch times daily. Use in each nostril as directed fluticasone 2020-02 Yes [id number] 2{puff} Inhale 2 [facility] propionate 2-02 Puffs 2 ity of (FLOVENT 00:00: (two) [place] HFA) 44 00 times Medical mcg/actuati daily. Branch on inhaler Rinse mouth after each use. azelastine 2020-02 Yes [id number] 1{spray Use 1 [facility] 137 mcg 2-02 } [place] in ity of (0.1 %) 00:00: each [place] nasal spray 00 nostril 2 Med ical (two) Branch times daily. Use in each nostril as directed fluticasone 2020-02 Yes [id number] 2{puff} Inhale 2 [facility] propionate 2-02 Puffs 2 ity of (FLOVENT 00:00: (two) [place] HFA) 44 00 times Medical mcg/actuati daily. Branch on inhaler Rinse mouth after each use. azelastine 2020-02 Yes [id number] 1{spray Use 1 [facility] 137 mcg 2-02 } [place] in ity of (0.1 %) 00:00: each [place] nasal spray 00 nostril 2 Med ical (two) Branch times daily. Use in each nostril as directed fluticasone 2020-02 Yes [id number] 2{puff} Inhale 2 [facility] propionate 2-02 Puffs 2 ity of (FLOVENT 00:00: (two) [place] HFA) 44 00 times Medical mcg/actuati daily. Branch on inhaler Rinse mouth after each use. azelastine 2020-02 Yes [id number] 1{spray Use 1 [facility] 137 mcg 2-02 } [place] in [facility]y of (0.1 %) 00:00: each [place] nasal spray 00 nostril 2 Med ical (two) Branch times daily. Use in each nostril as directed fluticasone 2020-02 Yes [id number] 2{puff} Inhale 2 [facility] propionate 2-02 Puffs 2 ity of (FLOVENT 00:00: (two) [place] HFA) 44 00 times Medical mcg/actuati daily. Branch on inhaler Rinse mouth after each use. azelastine 2020-02 Yes [id number] 1{spray Use 1 [facility] 137 mcg 2-02 } [place] in [facility]y of (0.1 %) 00:00: each [place] nasal spray 00 nostril 2 Med ical (two) Branch times daily. Use in each nostril as directed fluticasone 2020-02 Yes [id number] 2{puff} Inhale 2 [facility] propionate 2-02 Puffs 2 ity of (FLOVENT 00:00: (two) [place] HFA) 44 00 times Medical mcg/actuati daily. Branch on inhaler Rinse mouth after each use. azelastine 2020-02 Yes [id number] 1{spray Use 1 [facility] 137 mcg 2-02 } [place] in ity of (0.1 %) 00:00: each [place] nasal spray 00 nostril 2 Med ical (two) Branch times daily. Use in each nostril as directed fluticasone 2020-02 Yes [id number] 2{puff} Inhale 2 [facility] propionate 2-02 Puffs 2 ity of (FLOVENT 00:00: (two) [place] HFA) 44 00 times Medical mcg/actuati daily. Branch on inhaler Rinse mouth after each use. azelastine 2020-02 Yes [id number] 1{spray Use 1 [facility] 137 mcg 2-02 } [place] in ity of (0.1 %) 00:00: each [place] nasal spray 00 nostril 2 Med ical (two) Branch times daily. Use in each nostril as directed fluticasone 2020-02 Yes [id number] 2{puff} Inhale 2 [facility] propionate 2-02 Puffs 2 ity of (FLOVENT 00:00: (two) [place] HFA) 44 00 times Medical mcg/actuati daily. Branch on inhaler Rinse mouth after each use. azelastine 2020-02 Yes [id number] 1{spray Use 1 [facility] 137 mcg 2-02 } [place] in ity of (0.1 %) 00:00: each [place] nasal spray 00 nostril 2 Med ical (two) Branch times daily. Use in each nostril as directed fluticasone 2020-02 Yes [id number] 2{puff} Inhale 2 [facility] propionate 2-02 Puffs 2 ity of (FLOVENT 00:00: (two) [place] HFA) 44 00 times Medical mcg/actuati daily. Branch on inhaler Rinse mouth after each use. azelastine 2020-02 Yes [id number] 1{spray Use 1 [facility] 137 mcg 2-02 } [place] in ity of (0.1 %) 00:00: each [place] nasal spray 00 nostril 2 Med ical (two) Branch times daily. Use in each nostril as directed fluticasone 2020-02 Yes [id number] 2{puff} Inhale 2 [facility] propionate 2-02 Puffs 2 ity of (FLOVENT 00:00: (two) [place] HFA) 44 00 times Medical mcg/actuati daily. Branch on inhaler Rinse mouth after each use. azelastine 2020-02 Yes [id number] 1{spray Use 1 [facility] 137 mcg 2-02 } [place] in [facility]y of (0.1 %) 00:00: each [place] nasal spray 00 nostril 2 Med ical (two) Branch times daily. Use in each nostril as directed fluticasone 2020-02 Yes [id number] 2{puff} Inhale 2 [facility] propionate 2-02 Puffs 2 ity of (FLOVENT 00:00: (two) [place] HFA) 44 00 times Medical mcg/actuati daily. Branch on inhaler Rinse mouth after each use. azelastine 2020-02 Yes [id number] 1{spray Use 1 [facility] 137 mcg 2-02 } [place] in ity of (0.1 %) 00:00: each [place] nasal spray 00 nostril 2 Med ical (two) Branch times daily. Use in each nostril as directed fluticasone 2020-02 Yes [id number] 2{puff} Inhale 2 [facility] propionate 2-02 Puffs 2 ity of (FLOVENT 00:00: (two) [place] HFA) 44 00 times Medical mcg/actuati daily. Branch on inhaler Rinse mouth after each use. azelastine 2020-02 Yes [id number] 1{spray Use 1 [facility] 137 mcg 2-02 } [place] in ity of (0.1 %) 00:00: each [place] nasal spray 00 nostril 2 Med ical (two) Branch times daily. Use in each nostril as directed fluticasone 2020-02 Yes [id number] 2{puff} Inhale 2 [facility] propionate 2-02 Puffs 2 ity of (FLOVENT 00:00: (two) [place] HFA) 44 00 times Medical mcg/actuati daily. Branch on inhaler Rinse mouth after each use. azelastine 2020-02 Yes [id number] 1{spray Use 1 [facility] 137 mcg 2-02 } [place] in ity of (0.1 %) 00:00: each [place] nasal spray 00 nostril 2 Med ical (two) Branch times daily. Use in each nostril as directed fluticasone 2020-02 Yes [id number] 2{puff} Inhale 2 [facility] propionate 2-02 Puffs 2 ity of (FLOVENT 00:00: (two) [place] HFA) 44 00 times Medical mcg/actuati daily. Branch on inhaler Rinse mouth after each use. azelastine 2020-02 Yes [id number] 1{spray Use 1 [facility] 137 mcg 2-02 } [place] in [facility]y of (0.1 %) 00:00: each [place] nasal spray 00 nostril 2 Med ical (two) Branch times daily. Use in each nostril as directed fluticasone 2020-02 Yes [id number] 2{puff} Inhale 2 [facility] propionate 2-02 Puffs 2 ity of (FLOVENT 00:00: (two) [place] HFA) 44 00 times Medical mcg/actuati daily. Branch on inhaler Rinse mouth after each use. azelastine 2020-02 Yes [id number] 1{spray Use 1 [facility] 137 mcg 2-02 } [place] in ity of (0.1 %) 00:00: each [place] nasal spray 00 nostril 2 Med ical (two) Branch times daily. Use in each nostril as directed fluticasone 2020-02 Yes [id number] 2{puff} Inhale 2 [facility] propionate 2-02 Puffs 2 ity of (FLOVENT 00:00: (two) [place] HFA) 44 00 times Medical mcg/actuati daily. Branch on inhaler Rinse mouth after each use. azelastine 2020-02 Yes [id number] 1{spray Use 1 [facility] 137 mcg 2-02 } [place] in [facility]y of (0.1 %) 00:00: each [place] nasal spray 00 nostril 2 Med ical (two) Branch times daily. Use in each nostril as directed fluticasone 2020-02 Yes [id number] 2{puff} Inhale 2 [facility] propionate 2-02 Puffs 2 ity of (FLOVENT 00:00: (two) [place] HFA) 44 00 times Medical mcg/actuati daily. Branch on inhaler Rinse mouth after each use. mirtazapine 2020-02- No [id number] 7.5mg Take 1 [facility] 7.5 mg 2- 07-15 tablet by ity of tablet 00:00: 00:00 mouth at [place] 00 :00 bedtime. Medical Branch mirtazapine 2020-02- No [id number] 7.5mg Take 1 [facility] 7.5 mg 2- 07-15 tablet by ity of tablet 00:00: 00:00 mouth at [place] 00 :00 bedtime. Medical Branch albuterol Yes [id number] 2{puff} Inhale 2 [facility] (PROAIR 9-03 Puffs ity of HFA) 90 00:00: every 6 [place] mcg/actuati 00 (six) Medical on inhaler hours as Branc h needed for Wheezing or Shortness of Breath. albuterol Yes [id number] 2{puff} Inhale 2 [facility] (PROAIR 9-03 Puffs ity of HFA) 90 00:00: every 6 [place] mcg/actuati 00 (six) Medical on inhaler hours as Branc h needed for Wheezing or Shortness of Breath. albuterol Yes [id number] 2{puff} Inhale 2 [facility] (PROAIR 9-03 Puffs ity of HFA) 90 00:00: every 6 [place] mcg/actuati 00 (six) Medical on inhaler hours as Branc h needed for Wheezing or Shortness of Breath. albuterol Yes [id number] 2{puff} Inhale 2 [facility] (PROAIR 9-03 Puffs ity of HFA) 90 00:00: every 6 [place] mcg/actuati 00 (six) Medical on inhaler hours as Branc h needed for Wheezing or Shortness of Breath. albuterol Yes [id number] 2{puff} Inhale 2 [facility] (PROAIR 9-03 Puffs ity of HFA) 90 00:00: every 6 [place] mcg/actuati 00 (six) Medical on inhaler hours as Branc h needed for Wheezing or Shortness of Breath. albuterol Yes [id number] 2{puff} Inhale 2 [facility] (PROAIR 9-03 Puffs ity of HFA) 90 00:00: every 6 [place] mcg/actuati 00 (six) Medical on inhaler hours as Branc h needed for Wheezing or Shortness of Breath. albuterol Yes [id number] 2{puff} Inhale 2 [facility] (PROAIR 9-03 Puffs ity of HFA) 90 00:00: every 6 [place] mcg/actuati 00 (six) Medical on inhaler hours as Branc h needed for Wheezing or Shortness of Breath. albuterol Yes [id number] 2{puff} Inhale 2 [facility] (PROAIR 9-03 Puffs ity of HFA) 90 00:00: every 6 [place] mcg/actuati 00 (six) Medical on inhaler hours as Branc h needed for Wheezing or Shortness of Breath. albuterol Yes [id number] 2{puff} Inhale 2 [facility] (PROAIR 9-03 Puffs ity of HFA) 90 00:00: every 6 [place] mcg/actuati 00 (six) Medical on inhaler hours as Branc h needed for Wheezing or Shortness of Breath. albuterol Yes [id number] 2{puff} Inhale 2 [facility] (PROAIR 9-03 Puffs ity of HFA) 90 00:00: every 6 [place] mcg/actuati 00 (six) Medical on inhaler hours as Branc h needed for Wheezing or Shortness of Breath. albuterol Yes [id number] 2{puff} Inhale 2 [facility] (PROAIR 9-03 Puffs ity of HFA) 90 00:00: every 6 [place] mcg/actuati 00 (six) Medical on inhaler hours as Branc h needed for Wheezing or Shortness of Breath. albuterol Yes [id number] 2{puff} Inhale 2 [facility] (PROAIR 9-03 Puffs ity of HFA) 90 00:00: every 6 [place] mcg/actuati 00 (six) Medical on inhaler hours as Branc h needed for Wheezing or Shortness of Breath. albuterol Yes [id number] 2{puff} Inhale 2 [facility] (PROAIR 9-03 Puffs ity of HFA) 90 00:00: every 6 [place] mcg/actuati 00 (six) Medical on inhaler hours as Branc h needed for Wheezing or Shortness of Breath. albuterol Yes [id number] 2{puff} Inhale 2 [facility] (PROAIR 9-03 Puffs ity of HFA) 90 00:00: every 6 [place] mcg/actuati 00 (six) Medical on inhaler hours as Branc h needed for Wheezing or Shortness of Breath. albuterol Yes [id number] 2{puff} Inhale 2 [facility] (PROAIR 9-03 Puffs ity of HFA) 90 00:00: every 6 [place] mcg/actuati 00 (six) Medical on inhaler hours as Branc h needed for Wheezing or Shortness of Breath. albuterol Yes [id number] 2{puff} Inhale 2 [facility] (PROAIR 9-03 Puffs ity of HFA) 90 00:00: every 6 [place] mcg/actuati 00 (six) Medical on inhaler hours as Branc h needed for Wheezing or Shortness of Breath. albuterol Yes [id number] 2{puff} Inhale 2 [facility] (PROAIR 9-03 Puffs ity of HFA) 90 00:00: every 6 [place] mcg/actuati 00 (six) Medical on inhaler hours as Branc h needed for Wheezing or Shortness of Breath. albuterol Yes [id number] 2{puff} Inhale 2 [facility] (PROAIR 9-03 Puffs ity of HFA) 90 00:00: every 6 [place] mcg/actuati 00 (six) Medical on inhaler hours as Branc h needed for Wheezing or Shortness of Breath. albuterol Yes [id number] 2{puff} Inhale 2 [facility] (PROAIR 9-03 Puffs ity of HFA) 90 00:00: every 6 [place] mcg/actuati 00 (six) Medical on inhaler hours as Branc h needed for Wheezing or Shortness of Breath. albuterol Yes [id number] 2{puff} Inhale 2 [facility] (PRO[facility]IR 9-03 Puffs ity of HFA) 90 00:00: every 6 [place] mcg/actuati 00 (six) Medical on inhaler hours as Branc h needed for Wheezing or Shortness of Breath. albuterol Yes [id number] 2{puff} Inhale 2 [facility] (PROAIR 9-03 Puffs ity of HFA) 90 00:00: every 6 [place] mcg/actuati 00 (six) Medical on inhaler hours as Branc h needed for Wheezing or Shortness of Breath. albuterol Yes [id number] 2{puff} Inhale 2 [facility] (PROAIR 9-03 Puffs ity of HFA) 90 00:00: every 6 [place] mcg/actuati 00 (six) Medical on inhaler hours as Branc h needed for Wheezing or Shortness of Breath. albuterol Yes [id number] 2{puff} Inhale 2 [facility] (PROAIR 9-03 Puffs ity of HFA) 90 00:00: every 6 [place] mcg/actuati 00 (six) Medical on inhaler hours as Branc h needed for Wheezing or Shortness of Breath. albuterol Yes [id number] 2{puff} Inhale 2 [facility] (PROAIR 9-03 Puffs ity of HFA) 90 00:00: every 6 [place] mcg/actuati 00 (six) Medical on inhaler hours as Branc h needed for Wheezing or Shortness of Breath. albuterol 0 Yes [id number] 2{puff} Inhale 2 [facility] (PROAIR 9-03 Puffs ity of HFA) 90 00:00: every 6 [place] mcg/actuati 00 (six) Medical on inhaler hours as Branc h needed for Wheezing or Shortness of Breath. albuterol 0 Yes [id number] 2{puff} Inhale 2 [facility] (PROAIR 9-03 Puffs ity of HFA) 90 00:00: every 6 [place] mcg/actuati 00 (six) Medical on inhaler hours as Branc h needed for Wheezing or Shortness of Breath. albuterol 0 Yes [id number] 2{puff} Inhale 2 [facility] (PROAIR 9-03 Puffs ity of HFA) 90 00:00: every 6 [place] mcg/actuati 00 (six) Medical on inhaler hours as Branc h needed for Wheezing or Shortness of Breath. albuterol Yes [id number] 2{puff} Inhale 2 [facility] (PROAIR 9-03 Puffs ity of HFA) 90 00:00: every 6 [place] mcg/actuati 00 (six) Medical on inhaler hours as Branc h needed for Wheezing or Shortness of Breath. albuterol 0 Yes [id number] 2{puff} Inhale 2 [facility] (PROAIR 9-03 Puffs ity of HFA) 90 00:00: every 6 [place] mcg/actuati 00 (six) Medical on inhaler hours as Branc h needed for Wheezing or Shortness of Breath. albuterol Yes [id number] 2{puff} Inhale 2 [facility] (PROAIR 9-03 Puffs ity of HFA) 90 00:00: every 6 [place] mcg/actuati 00 (six) Medical on inhaler hours as Branc h needed for Wheezing or Shortness of Breath. albuterol Yes [id number] 2{puff} Inhale 2 [facility] (PROAIR 9-03 Puffs ity of HFA) 90 00:00: every 6 [place] mcg/actuati 00 (six) Medical on inhaler hours as Branc h needed for Wheezing or Shortness of Breath. albuterol 0 Yes [id number] 2{puff} Inhale 2 [facility] (PROAIR 9-03 Puffs ity of HFA) 90 00:00: every 6 [place] mcg/actuati 00 (six) Medical on inhaler hours as Branc h needed for Wheezing or Shortness of Breath. albuterol 0 Yes [id number] 2{puff} Inhale 2 [facility] (PROAIR 9-03 Puffs ity of HFA) 90 00:00: every 6 [place] mcg/actuati 00 (six) Medical on inhaler hours as Branc h needed for Wheezing or Shortness of Breath. albuterol 0 Yes [id number] 2{puff} Inhale 2 [facility] (PROAIR 9-03 Puffs ity of HFA) 90 00:00: every 6 [place] mcg/actuati 00 (six) Medical on inhaler hours as Branc h needed for Wheezing or Shortness of Breath. albuterol 0 Yes [id number] 2{puff} Inhale 2 [facility] (PROAIR 9-03 Puffs ity of HFA) 90 00:00: every 6 [place] mcg/actuati 00 (six) Medical on inhaler hours as Branc h needed for Wheezing or Shortness of Breath. albuterol 0 Yes [id number] 2{puff} Inhale 2 [facility] (PROAIR 9-03 Puffs ity of HFA) 90 00:00: every 6 [place] mcg/actuati 00 (six) Medical on inhaler hours as Branc h needed for Wheezing or Shortness of Breath. albuterol 0 Yes [id number] 2{puff} Inhale 2 [facility] (PROAIR 9-03 Puffs ity of HFA) 90 00:00: every 6 [place] mcg/actuati 00 (six) Medical on inhaler hours as Branc h needed for Wheezing or Shortness of Breath. albuterol Yes [id number] 2{puff} Inhale 2 [facility] (PROAIR 9-03 Puffs ity of HFA) 90 00:00: every 6 [place] mcg/actuati 00 (six) Medical on inhaler hours as Branc h needed for Wheezing or Shortness of Breath. albuterol 0 Yes [id number] 2{puff} Inhale 2 [facility] (PROAIR 9-03 Puffs ity of HFA) 90 00:00: every 6 [place] mcg/actuati 00 (six) Medical on inhaler hours as Branc h needed for Wheezing or Shortness of Breath. albuterol 0 Yes [id number] 2{puff} Inhale 2 [facility] (PROAIR 9-03 Puffs ity of HFA) 90 00:00: every 6 [place] mcg/actuati 00 (six) Medical on inhaler hours as Branc h needed for Wheezing or Shortness of Breath. albuterol 0 Yes [id number] 2{puff} Inhale 2 [facility] (PROAIR 9-03 Puffs ity of HFA) 90 00:00: every 6 [place] mcg/actuati 00 (six) Medical on inhaler hours as Branc h needed for Wheezing or Shortness of Breath. albuterol Yes [id number] 2{puff} Inhale 2 [facility] (PROAIR 9-03 Puffs ity of HFA) 90 00:00: every 6 [place] mcg/actuati 00 (six) Medical on inhaler hours as Branc h needed for Wheezing or Shortness of Breath. albuterol Yes [id number] 2{puff} Inhale 2 [facility] (PROAIR 9-03 Puffs ity of HFA) 90 00:00: every 6 [place] mcg/actuati 00 (six) Medical on inhaler hours as Branc h needed for Wheezing or Shortness of Breath. albuterol Yes [id number] 2{puff} Inhale 2 [facility] (PROAIR 9-03 Puffs ity of HFA) 90 00:00: every 6 [place] mcg/actuati 00 (six) Medical on inhaler hours as Branc h needed for Wheezing or Shortness of Breath. albuterol Yes [id number] 2{puff} Inhale 2 [facility] (PROAIR 9-03 Puffs ity of HFA) 90 00:00: every 6 [place] mcg/actuati 00 (six) Medical on inhaler hours as Branc h needed for Wheezing or Shortness of Breath. albuterol Yes [id number] 2{puff} Inhale 2 [facility] (PROAIR 9-03 Puffs ity of HFA) 90 00:00: every 6 [place] mcg/actuati 00 (six) Medical on inhaler hours as Branc h needed for Wheezing or Shortness of Breath. albuterol Yes [id number] 2{puff} Inhale 2 [facility] (PROAIR 9-03 Puffs ity of HFA) 90 00:00: every 6 [place] mcg/actuati 00 (six) Medical on inhaler hours as Branc h needed for Wheezing or Shortness of Breath. albuterol Yes [id number] 2{puff} Inhale 2 [facility] (PROAIR 9-03 Puffs ity of HFA) 90 00:00: every 6 [place] mcg/actuati 00 (six) Medical on inhaler hours as Branc h needed for Wheezing or Shortness of Breath. albuterol Yes [id number] 2{puff} Inhale 2 [facility] (PROAIR 9-03 Puffs ity of HFA) 90 00:00: every 6 [place] mcg/actuati 00 (six) Medical on inhaler hours as Branc h needed for Wheezing or Shortness of Breath. albuterol Yes [id number] 2{puff} Inhale 2 [facility] (PROAIR 9-03 Puffs ity of HFA) 90 00:00: every 6 [place] mcg/actuati 00 (six) Medical on inhaler hours as Branc h needed for Wheezing or Shortness of Breath. albuterol Yes [id number] 2{puff} Inhale 2 [facility] (PROAIR 9-03 Puffs ity of HFA) 90 00:00: every 6 [place] mcg/actuati 00 (six) Medical on inhaler hours as Branc h needed for Wheezing or Shortness of Breath. albuterol Yes [id number] 2{puff} Inhale 2 [facility] (PROAIR 9-03 Puffs ity of HFA) 90 00:00: every 6 [place] mcg/actuati 00 (six) Medical on inhaler hours as Branc h needed for Wheezing or Shortness of Breath. albuterol Yes [id number] 2{puff} Inhale 2 [facility] (PROAIR 9-03 Puffs ity of HFA) 90 00:00: every 6 [place] mcg/actuati 00 (six) Medical on inhaler hours as Branc h needed for Wheezing or Shortness of Breath. albuterol 0 Yes [id number] 2{puff} Inhale 2 [facility] (PROAIR 9-03 Puffs ity of HFA) 90 00:00: every 6 [place] mcg/actuati 00 (six) Medical on inhaler hours as Branc h needed for Wheezing or Shortness of Breath. albuterol Yes [id number] 2{puff} Inhale 2 [facility] (PROAIR 9-03 Puffs ity of HFA) 90 00:00: every 6 [place] mcg/actuati 00 (six) Medical on inhaler hours as Branc h needed for Wheezing or Shortness of Breath. albuterol Yes [id number] 2{puff} Inhale 2 [facility] (PROAIR 9-03 Puffs ity of HFA) 90 00:00: every 6 [place] mcg/actuati 00 (six) Medical on inhaler hours as Branc h needed for Wheezing or Shortness of Breath. albuterol Yes [id number] 2{puff} Inhale 2 [facility] (PROAIR 9-03 Puffs ity of HFA) 90 00:00: every 6 [place] mcg/actuati 00 (six) Medical on inhaler hours as Branc h needed for Wheezing or Shortness of Breath. albuterol 0 Yes [id number] 2{puff} Inhale 2 [facility] (PROAIR 9-03 Puffs ity of HFA) 90 00:00: every 6 [place] mcg/actuati 00 (six) Medical on inhaler hours as Branc h needed for Wheezing or Shortness of Breath. albuterol Yes [id number] 2{puff} Inhale 2 [facility] (PROAIR 9-03 Puffs ity of HFA) 90 00:00: every 6 [place] mcg/actuati 00 (six) Medical on inhaler hours as Branc h needed for Wheezing or Shortness of Breath. albuterol Yes [id number] 2{puff} Inhale 2 [facility] (PROAIR 9-03 Puffs ity of HFA) 90 00:00: every 6 [place] mcg/actuati 00 (six) Medical on inhaler hours as Branc h needed for Wheezing or Shortness of Breath. albuterol 0 Yes [id number] 2{puff} Inhale 2 [facility] (PROAIR 9-03 Puffs ity of HFA) 90 00:00: every 6 [place] mcg/actuati 00 (six) Medical on inhaler hours as Branc h needed for Wheezing or Shortness of Breath. albuterol 0 Yes [id number] 2{puff} Inhale 2 [facility] (PROAIR 9-03 Puffs ity of HFA) 90 00:00: every 6 [place] mcg/actuati 00 (six) Medical on inhaler hours as Branc h needed for Wheezing or Shortness of Breath. albuterol 0 Yes [id number] 2{puff} Inhale 2 [facility] (PROAIR 9-03 Puffs ity of HFA) 90 00:00: every 6 [place] mcg/actuati 00 (six) Medical on inhaler hours as Branc h needed for Wheezing or Shortness of Breath. albuterol Yes [id number] 2{puff} Inhale 2 [facility] (PROAIR 9-03 Puffs ity of HFA) 90 00:00: every 6 [place] mcg/actuati 00 (six) Medical on inhaler hours as Branc h needed for Wheezing or Shortness of Breath. albuterol 0 Yes [id number] 2{puff} Inhale 2 [facility] (PROAIR 9-03 Puffs ity of HFA) 90 00:00: every 6 [place] mcg/actuati 00 (six) Medical on inhaler hours as Branc h needed for Wheezing or Shortness of Breath. albuterol Yes [id number] 2{puff} Inhale 2 [facility] (PROAIR 9-03 Puffs ity of HFA) 90 00:00: every 6 [place] mcg/actuati 00 (six) Medical on inhaler hours as Branc h needed for Wheezing or Shortness of Breath. albuterol Yes [id number] 2{puff} Inhale 2 [facility] (PROAIR 9-03 Puffs ity of HFA) 90 00:00: every 6 [place] mcg/actuati 00 (six) Medical on inhaler hours as Branc h needed for Wheezing or Shortness of Breath. albuterol Yes [id number] 2{puff} Inhale 2 [facility] (PROAIR 9-03 Puffs ity of HFA) 90 00:00: every 6 [place] mcg/actuati 00 (six) Medical on inhaler hours as Branc h needed for Wheezing or Shortness of Breath. albuterol Yes [id number] 2{puff} Inhale 2 [facility] (PROAIR 9-03 Puffs ity of HFA) 90 00:00: every 6 [place] mcg/actuati 00 (six) Medical on inhaler hours as Branc h needed for Wheezing or Shortness of Breath. albuterol 0 Yes [id number] 2{puff} Inhale 2 [facility] (PROAIR 9-03 Puffs ity of HFA) 90 00:00: every 6 [place] mcg/actuati 00 (six) Medical on inhaler hours as Branc h needed for Wheezing or Shortness of Breath. albuterol Yes [id number] 2{puff} Inhale 2 [facility] (PROAIR 9-03 Puffs ity of HFA) 90 00:00: every 6 [place] mcg/actuati 00 (six) Medical on inhaler hours as Branc h needed for Wheezing or Shortness of Breath. albuterol Yes [id number] 2{puff} Inhale 2 [facility] (PROAIR 9-03 Puffs ity of HFA) 90 00:00: every 6 [place] mcg/actuati 00 (six) Medical on inhaler hours as Branc h needed for Wheezing or Shortness of Breath. albuterol Yes [id number] 2{puff} Inhale 2 [facility] (PROAIR 9-03 Puffs ity of HFA) 90 00:00: every 6 [place] mcg/actuati 00 (six) Medical on inhaler hours as Branc h needed for Wheezing or Shortness of Breath. albuterol Yes [id number] 2{puff} Inhale 2 [facility] (PROAIR 9-03 Puffs ity of HFA) 90 00:00: every 6 [place] mcg/actuati 00 (six) Medical on inhaler hours as Branc h needed for Wheezing or Shortness of Breath. albuterol Yes [id number] 2{puff} Inhale 2 [facility] (PROAIR 9-03 Puffs ity of HFA) 90 00:00: every 6 [place] mcg/actuati 00 (six) Medical on inhaler hours as Branc h needed for Wheezing or Shortness of Breath. albuterol Yes [id number] 2{puff} Inhale 2 [facility] (PROAIR 9-03 Puffs ity of HFA) 90 00:00: every 6 [place] mcg/actuati 00 (six) Medical on inhaler hours as Branc h needed for Wheezing or Shortness of Breath. albuterol Yes [id number] 2{puff} Inhale 2 [facility] (PROAIR 9-03 Puffs ity of HFA) 90 00:00: every 6 [place] mcg/actuati 00 (six) Medical on inhaler hours as Branc h needed for Wheezing or Shortness of Breath. albuterol Yes [id number] 2{puff} Inhale 2 [facility] (PROAIR 9-03 Puffs ity of HFA) 90 00:00: every 6 [place] mcg/actuati 00 (six) Medical on inhaler hours as Branc h needed for Wheezing or Shortness of Breath. albuterol Yes [id number] 2{puff} Inhale 2 [facility] (PROAIR 9-03 Puffs ity of HFA) 90 00:00: every 6 [place] mcg/actuati 00 (six) Medical on inhaler hours as Branc h needed for Wheezing or Shortness of Breath. albuterol Yes [id number] 2{puff} Inhale 2 [facility] (PROAIR 9-03 Puffs ity of HFA) 90 00:00: every 6 [place] mcg/actuati 00 (six) Medical on inhaler hours as Branc h needed for Wheezing or Shortness of Breath. albuterol Yes [id number] 2{puff} Inhale 2 [facility] (PROAIR 9-03 Puffs ity of HFA) 90 00:00: every 6 [place] mcg/actuati 00 (six) Medical on inhaler hours as Branc h needed for Wheezing or Shortness of Breath. albuterol Yes [id number] 2{puff} Inhale 2 [facility] (PROAIR 9-03 Puffs ity of HFA) 90 00:00: every 6 [place] mcg/actuati 00 (six) Medical on inhaler hours as Branc h needed for Wheezing or Shortness of Breath. albuterol 0 Yes [id number] 2{puff} Inhale 2 [facility] (PROAIR 9-03 Puffs ity of HFA) 90 00:00: every 6 [place] mcg/actuati 00 (six) Medical on inhaler hours as Branc h needed for Wheezing or Shortness of Breath. albuterol Yes [id number] 2{puff} Inhale 2 [facility] (PROAIR 9-03 Puffs ity of HFA) 90 00:00: every 6 [place] mcg/actuati 00 (six) Medical on inhaler hours as Branc h needed for Wheezing or Shortness of Breath. albuterol Yes [id number] 2{puff} Inhale 2 [facility] (PROAIR 9-03 Puffs ity of HFA) 90 00:00: every 6 [place] mcg/actuati 00 (six) Medical on inhaler hours as Branc h needed for Wheezing or Shortness of Breath. albuterol Yes [id number] 2{puff} Inhale 2 [facility] (PROAIR 9-03 Puffs ity of HFA) 90 00:00: every 6 [place] mcg/actuati 00 (six) Medical on inhaler hours as Branc h needed for Wheezing or Shortness of Breath. albuterol 0 Yes [id number] 2{puff} Inhale 2 [facility] (PROAIR 9-03 Puffs ity of HFA) 90 00:00: every 6 [place] mcg/actuati 00 (six) Medical on inhaler hours as Branc h needed for Wheezing or Shortness of Breath. albuterol 0 Yes [id number] 2{puff} Inhale 2 [facility] (PROAIR 9-03 Puffs ity of HFA) 90 00:00: every 6 [place] mcg/actuati 00 (six) Medical on inhaler hours as Branc h needed for Wheezing or Shortness of Breath. albuterol Yes [id number] 2{puff} Inhale 2 [facility] (PROAIR 9-03 Puffs ity of HFA) 90 00:00: every 6 [place] mcg/actuati 00 (six) Medical on inhaler hours as Branc h needed for Wheezing or Shortness of Breath. albuterol 0 Yes [id number] 2{puff} Inhale 2 [facility] (PROAIR 9-03 Puffs ity of HFA) 90 00:00: every 6 [place] mcg/actuati 00 (six) Medical on inhaler hours as Branc h needed for Wheezing or Shortness of Breath. albuterol 0 Yes [id number] 2{puff} Inhale 2 [facility] (PROAIR 9-03 Puffs ity of HFA) 90 00:00: every 6 [place] mcg/actuati 00 (six) Medical on inhaler hours as Branc h needed for Wheezing or Shortness of Breath. albuterol 0 Yes [id number] 2{puff} Inhale 2 [facility] (PROAIR 9-03 Puffs ity of HFA) 90 00:00: every 6 [place] mcg/actuati 00 (six) Medical on inhaler hours as Branc h needed for Wheezing or Shortness of Breath. albuterol Yes [id number] 2{puff} Inhale 2 [facility] (PROAIR 9-03 Puffs ity of HFA) 90 00:00: every 6 [place] mcg/actuati 00 (six) Medical on inhaler hours as Branc h needed for Wheezing or Shortness of Breath. albuterol Yes [id number] 2{puff} Inhale 2 [facility] (PROAIR 9-03 Puffs ity of HFA) 90 00:00: every 6 [place] mcg/actuati 00 (six) Medical on inhaler hours as Branc h needed for Wheezing or Shortness of Breath. albuterol Yes [id number] 2{puff} Inhale 2 [facility] (PROAIR 9-03 Puffs ity of HFA) 90 00:00: every 6 [place] mcg/actuati 00 (six) Medical on inhaler hours as Branc h needed for Wheezing or Shortness of Breath. albuterol Yes [id number] 2{puff} Inhale 2 [facility] (PROAIR 9-03 Puffs ity of HFA) 90 00:00: every 6 [place] mcg/actuati 00 (six) Medical on inhaler hours as Branc h needed for Wheezing or Shortness of Breath. albuterol Yes [id number] 2{puff} Inhale 2 [facility] (PROAIR 9-03 Puffs ity of HFA) 90 00:00: every 6 [place] mcg/actuati 00 (six) Medical on inhaler hours as Branc h needed for Wheezing or Shortness of Breath. albuterol Yes [id number] 2{puff} Inhale 2 [facility] (PROAIR 9-03 Puffs ity of HFA) 90 00:00: every 6 [place] mcg/actuati 00 (six) Medical on inhaler hours as Branc h needed for Wheezing or Shortness of Breath. albuterol Yes [id number] 2{puff} Inhale 2 [facility] (PROAIR 9-03 Puffs ity of HFA) 90 00:00: every 6 [place] mcg/actuati 00 (six) Medical on inhaler hours as Branc h needed for Wheezing or Shortness of Breath. albuterol Yes [id number] 2{puff} Inhale 2 [facility] (PROAIR 9-03 Puffs ity of HFA) 90 00:00: every 6 [place] mcg/actuati 00 (six) Medical on inhaler hours as Branc h needed for Wheezing or Shortness of Breath. albuterol Yes [id number] 2{puff} Inhale 2 [facility] (PROAIR 9-03 Puffs ity of HFA) 90 00:00: every 6 [place] mcg/actuati 00 (six) Medical on inhaler hours as Branc h needed for Wheezing or Shortness of Breath. albuterol Yes [id number] 2{puff} Inhale 2 [facility] (PROAIR 9-03 Puffs ity of HFA) 90 00:00: every 6 [place] mcg/actuati 00 (six) Medical on inhaler hours as Branc h needed for Wheezing or Shortness of Breath. albuterol Yes [id number] 2{puff} Inhale 2 [facility] (PROAIR 9-03 Puffs ity of HFA) 90 00:00: every 6 [place] mcg/actuati 00 (six) Medical on inhaler hours as Branc h needed for Wheezing or Shortness of Breath. albuterol Yes [id number] 2{puff} Inhale 2 [facility] (PROAIR 9-03 Puffs ity of HFA) 90 00:00: every 6 [place] mcg/actuati 00 (six) Medical on inhaler hours as Branc h needed for Wheezing or Shortness of Breath. albuterol Yes [id number] 2{puff} Inhale 2 [facility] (PROAIR 9-03 Puffs ity of HFA) 90 00:00: every 6 [place] mcg/actuati 00 (six) Medical on inhaler hours as Branc h needed for Wheezing or Shortness of Breath. albuterol Yes [id number] 2{puff} Inhale 2 [facility] (PROAIR 9-03 Puffs ity of HFA) 90 00:00: every 6 [place] mcg/actuati 00 (six) Medical on inhaler hours as Branc h needed for Wheezing or Shortness of Breath. albuterol Yes [id number] 2{puff} Inhale 2 [facility] (PROAIR 9-03 Puffs ity of HFA) 90 00:00: every 6 [place] mcg/actuati 00 (six) Medical on inhaler hours as Branc h needed for Wheezing or Shortness of Breath. albuterol Yes [id number] 2{puff} Inhale 2 [facility] (PROAIR 9-03 Puffs ity of HFA) 90 00:00: every 6 [place] mcg/actuati 00 (six) Medical on inhaler hours as Branc h needed for Wheezing or Shortness of Breath. albuterol Yes [id number] 2{puff} Inhale 2 [facility] (PROAIR 9-03 Puffs ity of HFA) 90 00:00: every 6 [place] mcg/actuati 00 (six) Medical on inhaler hours as Branc h needed for Wheezing or Shortness of Breath. albuterol Yes [id number] 2{puff} Inhale 2 [facility] (PROAIR 9-03 Puffs ity of HFA) 90 00:00: every 6 [place] mcg/actuati 00 (six) Medical on inhaler hours as Branc h needed for Wheezing or Shortness of Breath. albuterol Yes [id number] 2{puff} Inhale 2 [facility] (PROAIR 9-03 Puffs ity of HFA) 90 00:00: every 6 [place] mcg/actuati 00 (six) Medical on inhaler hours as Branc h needed for Wheezing or Shortness of Breath. albuterol Yes [id number] 2{puff} Inhale 2 [facility] (PROAIR 9-03 Puffs ity of HFA) 90 00:00: every 6 [place] mcg/actuati 00 (six) Medical on inhaler hours as Branc h needed for Wheezing or Shortness of Breath. albuterol Yes [id number] 2{puff} Inhale 2 [facility] (PROAIR 9-03 Puffs ity of HFA) 90 00:00: every 6 [place] mcg/actuati 00 (six) Medical on inhaler hours as Branc h needed for Wheezing or Shortness of Breath. albuterol Yes [id number] 2{puff} Inhale 2 [facility] (PROAIR 9-03 Puffs ity of HFA) 90 00:00: every 6 [place] mcg/actuati 00 (six) Medical on inhaler hours as Branc h needed for Wheezing or Shortness of Breath. albuterol 0 Yes [id number] 2{puff} Inhale 2 [facility] (PROAIR 9-03 Puffs ity of HFA) 90 00:00: every 6 [place] mcg/actuati 00 (six) Medical on inhaler hours as Branc h needed for Wheezing or Shortness of Breath. albuterol 0 Yes [id number] 2{puff} Inhale 2 [facility] (PROAIR 9-03 Puffs ity of HFA) 90 00:00: every 6 [place] mcg/actuati 00 (six) Medical on inhaler hours as Branc h needed for Wheezing or Shortness of Breath. albuterol 0 Yes [id number] 2{puff} Inhale 2 [facility] (PROAIR 9-03 Puffs ity of HFA) 90 00:00: every 6 [place] mcg/actuati 00 (six) Medical on inhaler hours as Branc h needed for Wheezing or Shortness of Breath. albuterol Yes [id number] 2{puff} Inhale 2 [facility] (PROAIR 9-03 Puffs ity of HFA) 90 00:00: every 6 [place] mcg/actuati 00 (six) Medical on inhaler hours as Branc h needed for Wheezing or Shortness of Breath. albuterol 0 Yes [id number] 2{puff} Inhale 2 [facility] (PROAIR 9-03 Puffs ity of HFA) 90 00:00: every 6 [place] mcg/actuati 00 (six) Medical on inhaler hours as Branc h needed for Wheezing or Shortness of Breath. albuterol 0 Yes [id number] 2{puff} Inhale 2 [facility] (PROAIR 9-03 Puffs ity of HFA) 90 00:00: every 6 [place] mcg/actuati 00 (six) Medical on inhaler hours as Branc h needed for Wheezing or Shortness of Breath. albuterol 0 Yes [id number] 2{puff} Inhale 2 [facility] (PROAIR 9-03 Puffs ity of HFA) 90 00:00: every 6 [place] mcg/actuati 00 (six) Medical on inhaler hours as Branc h needed for Wheezing or Shortness of Breath. albuterol Yes [id number] 2{puff} Inhale 2 [facility] (PROAIR 9-03 Puffs ity of HFA) 90 00:00: every 6 [place] mcg/actuati 00 (six) Medical on inhaler hours as Branc h needed for Wheezing or Shortness of Breath. albuterol Yes [id number] 2{puff} Inhale 2 [facility] (PROAIR 9-03 Puffs ity of HFA) 90 00:00: every 6 [place] mcg/actuati 00 (six) Medical on inhaler hours as Branc h needed for Wheezing or Shortness of Breath. albuterol Yes [id number] 2{puff} Inhale 2 [facility] (PROAIR 9-03 Puffs ity of HFA) 90 00:00: every 6 [place] mcg/actuati 00 (six) Medical on inhaler hours as Branc h needed for Wheezing or Shortness of Breath. albuterol Yes [id number] 2{puff} Inhale 2 [facility] (PROAIR 9-03 Puffs ity of HFA) 90 00:00: every 6 [place] mcg/actuati 00 (six) Medical on inhaler hours as Branc h needed for Wheezing or Shortness of Breath. albuterol Yes [id number] 2{puff} Inhale 2 [facility] (PROAIR 9-03 Puffs ity of HFA) 90 00:00: every 6 [place] mcg/actuati 00 (six) Medical on inhaler hours as Branc h needed for Wheezing or Shortness of Breath. albuterol Yes [id number] 2{puff} Inhale 2 [facility] (PROAIR 9-03 Puffs ity of HFA) 90 00:00: every 6 [place] mcg/actuati 00 (six) Medical on inhaler hours as Branc h needed for Wheezing or Shortness of Breath. albuterol Yes [id number] 2{puff} Inhale 2 [facility] (PROAIR 9-03 Puffs ity of HFA) 90 00:00: every 6 [place] mcg/actuati 00 (six) Medical on inhaler hours as Branc h needed for Wheezing or Shortness of Breath. albuterol Yes [id number] 2{puff} Inhale 2 [facility] (PROAIR 9-03 Puffs ity of HFA) 90 00:00: every 6 [place] mcg/actuati 00 (six) Medical on inhaler hours as Branc h needed for Wheezing or Shortness of Breath. albuterol Yes [id number] 2{puff} Inhale 2 [facility] (PROAIR 9-03 Puffs ity of HFA) 90 00:00: every 6 [place] mcg/actuati 00 (six) Medical on inhaler hours as Branc h needed for Wheezing or Shortness of Breath. albuterol Yes [id number] 2{puff} Inhale 2 [facility] (PROAIR 9-03 Puffs ity of HFA) 90 00:00: every 6 [place] mcg/actuati 00 (six) Medical on inhaler hours as Branc h needed for Wheezing or Shortness of Breath. albuterol Yes [id number] 2{puff} Inhale 2 [facility] (PROAIR 9-03 Puffs ity of HFA) 90 00:00: every 6 [place] mcg/actuati 00 (six) Medical on inhaler hours as Branc h needed for Wheezing or Shortness of Breath. albuterol Yes [id number] 2{puff} Inhale 2 [facility] (PROAIR 9-03 Puffs ity of HFA) 90 00:00: every 6 [place] mcg/actuati 00 (six) Medical on inhaler hours as Branc h needed for Wheezing or Shortness of Breath. albuterol Yes [id number] 2{puff} Inhale 2 [facility] (PROAIR 9-03 Puffs ity of HFA) 90 00:00: every 6 [place] mcg/actuati 00 (six) Medical on inhaler hours as Branc h needed for Wheezing or Shortness of Breath. albuterol Yes [id number] 2{puff} Inhale 2 [facility] (PROAIR 9-03 Puffs ity of HFA) 90 00:00: every 6 [place] mcg/actuati 00 (six) Medical on inhaler hours as Branc h needed for Wheezing or Shortness of Breath. albuterol Yes [id number] 2{puff} Inhale 2 [facility] (PROAIR 9-03 Puffs ity of HFA) 90 00:00: every 6 [place] mcg/actuati 00 (six) Medical on inhaler hours as Branc h needed for Wheezing or Shortness of Breath. albuterol Yes [id number] 2{puff} Inhale 2 [facility] (PROAIR 9-03 Puffs ity of HFA) 90 00:00: every 6 [place] mcg/actuati 00 (six) Medical on inhaler hours as Branc h needed for Wheezing or Shortness of Breath. albuterol Yes [id number] 2{puff} Inhale 2 [facility] (PROAIR 9-03 Puffs ity of HFA) 90 00:00: every 6 [place] mcg/actuati 00 (six) Medical on inhaler hours as Branc h needed for Wheezing or Shortness of Breath. albuterol Yes [id number] 2{puff} Inhale 2 [facility] (PROAIR 9-03 Puffs ity of HFA) 90 00:00: every 6 [place] mcg/actuati 00 (six) Medical on inhaler hours as Branc h needed for Wheezing or Shortness of Breath. albuterol Yes [id number] 2{puff} Inhale 2 [facility] (PROAIR 9-03 Puffs ity of HFA) 90 00:00: every 6 [place] mcg/actuati 00 (six) Medical on inhaler hours as Branc h needed for Wheezing or Shortness of Breath. albuterol 0 Yes [id number] 2{puff} Inhale 2 [facility] (PROAIR 9-03 Puffs ity of HFA) 90 00:00: every 6 [place] mcg/actuati 00 (six) Medical on inhaler hours as Branc h needed for Wheezing or Shortness of Breath. albuterol Yes [id number] 2{puff} Inhale 2 [facility] (PROAIR 9-03 Puffs ity of HFA) 90 00:00: every 6 [place] mcg/actuati 00 (six) Medical on inhaler hours as Branc h needed for Wheezing or Shortness of Breath. albuterol 0 Yes [id number] 2{puff} Inhale 2 [facility] (PROAIR 9-03 Puffs ity of HFA) 90 00:00: every 6 [place] mcg/actuati 00 (six) Medical on inhaler hours as Branc h needed for Wheezing or Shortness of Breath. albuterol 0 Yes [id number] 2{puff} Inhale 2 [facility] (PROAIR 9-03 Puffs ity of HFA) 90 00:00: every 6 [place] mcg/actuati 00 (six) Medical on inhaler hours as Branc h needed for Wheezing or Shortness of Breath. albuterol 0 Yes [id number] 2{puff} Inhale 2 [facility] (PROAIR 9-03 Puffs ity of HFA) 90 00:00: every 6 [place] mcg/actuati 00 (six) Medical on inhaler hours as Branc h needed for Wheezing or Shortness of Breath. albuterol 0 Yes [id number] 2{puff} Inhale 2 [facility] (PROAIR 9-03 Puffs ity of HFA) 90 00:00: every 6 [place] mcg/actuati 00 (six) Medical on inhaler hours as Branc h needed for Wheezing or Shortness of Breath. albuterol Yes [id number] 2{puff} Inhale 2 [facility] (PROAIR 9-03 Puffs ity of HFA) 90 00:00: every 6 [place] mcg/actuati 00 (six) Medical on inhaler hours as Branc h needed for Wheezing or Shortness of Breath. albuterol 0 Yes [id number] 2{puff} Inhale 2 [facility] (PROAIR 9-03 Puffs ity of HFA) 90 00:00: every 6 [place] mcg/actuati 00 (six) Medical on inhaler hours as Branc h needed for Wheezing or Shortness of Breath. albuterol 0 Yes [id number] 2{puff} Inhale 2 [facility] (PROAIR 9-03 Puffs ity of HFA) 90 00:00: every 6 [place] mcg/actuati 00 (six) Medical on inhaler hours as Branc h needed for Wheezing or Shortness of Breath. albuterol 0 Yes [id number] 2{puff} Inhale 2 [facility] (PROAIR 9-03 Puffs ity of HFA) 90 00:00: every 6 [place] mcg/actuati 00 (six) Medical on inhaler hours as Branc h needed for Wheezing or Shortness of Breath. albuterol Yes [id number] 2{puff} Inhale 2 [facility] (PROAIR 9-03 Puffs ity of HFA) 90 00:00: every 6 [place] mcg/actuati 00 (six) Medical on inhaler hours as Branc h needed for Wheezing or Shortness of Breath. amLODIPine 2021- No [id number] 2.5mg Take 1 [facility] 2.5 mg 07-20 tablet by ity of tablet 00:00: 00:00 mouth [place] 00 :00 daily. [facility] amLODIPine 2021- No [id number] 2.5mg Take 1 [facility] 2.5 mg 07-20 tablet by ity of tablet 00:00: 00:00 mouth [place] 00 :00 daily. [facility] amLODIPine 2021- No [id number] 2.5mg Take 1 [facility] 2.5 mg 07-20 tablet by ity of tablet 00:00: 00:00 mouth [place] 00 :00 daily. [facility] hydroCHLORO 2021- No [id number] 25mg Take 1 [facility] thiazide 25 07-2015 tablet by it y of mg tablet 00:00: 00:00 mouth [place] 00 :00 daily. [facility] hydroCHLORO 2021- No [id number] 25mg Take 1 [facility] thiazide 25 07-20 tablet by it y of mg tablet 00:00: 00:00 mouth [place] 00 :00 daily. [facility] aspirin 81 2019- Yes [id number] 81mg Take 1 [facility] mg chewable 0-01 [id number] tablet by i ty of tablet 00:00: mouth [place] 00 daily. [facility] aspirin 81 2019- Yes [id number] 81mg Take 1 [facility] mg chewable 0-01 [id number] tablet by i ty of tablet 00:00: mouth [place] 00 daily. [facility] aspirin 81 2019- Yes [id number] 81mg Take 1 [facility] mg chewable 0-01 [id number] tablet by i ty of tablet 00:00: mouth [place] 00 daily. [facility] aspirin 81 2019- Yes [id number] 81mg Take 1 [facility] mg chewable 0-01 [id number] tablet by i ty of tablet 00:00: mouth [place] 00 daily. [facility] aspirin 81 2019-02 Yes [id number] 81mg Take 1 [facility] mg chewable 0-01 [id number] tablet by i ty of tablet 00:00: mouth [place] 00 daily. [facility] aspirin 81 2020- Yes [id number] 81mg Take 1 [facility] mg chewable 0-01 [id number] tablet by i ty of tablet 00:00: mouth [place] 00 daily. [facility] aspirin 81 2019- Yes [id number] 81mg Take 1 [facility] mg chewable 0-01 [id number] tablet by i ty of tablet 00:00: mouth [place] 00 daily. [facility] aspirin 81 2019- Yes [id number] 81mg Take 1 [facility] mg chewable 0-01 [id number] tablet by i ty of tablet 00:00: mouth [place] 00 daily. [facility] aspirin 81 2019- Yes [id number] 81mg Take 1 [facility] mg chewable 0-01 [id number] tablet by i ty of tablet 00:00: mouth [place] 00 daily. [facility] aspirin 81 2019- Yes [id number] 81mg Take 1 [facility] mg chewable 0-01 [id number] tablet by i ty of tablet 00:00: mouth [place] 00 daily. [facility] aspirin 81 2019- Yes [id number] 81mg Take 1 [facility] mg chewable 0-01 [id number] tablet by i ty of tablet 00:00: mouth [place] 00 daily. [facility] aspirin 81 2020- Yes [id number] 81mg Take 1 [facility] mg chewable 0-01 [id number] tablet by i ty of tablet 00:00: mouth [place] 00 daily. [facility] aspirin 81 2020- Yes [id number] 81mg Take 1 [facility] mg chewable 0-01 [id number] tablet by i ty of tablet 00:00: mouth [place] 00 daily. [facility] aspirin 81 2020- Yes [id number] 81mg Take 1 [facility] mg chewable 0-01 [id number] tablet by i ty of tablet 00:00: mouth [place] 00 daily. [facility] aspirin 81 2020- Yes [id number] 81mg Take 1 [facility] mg chewable 0-01 [id number] tablet by i ty of tablet 00:00: mouth [place] 00 daily. [facility] aspirin 81 2020- Yes [id number] 81mg Take 1 [facility] mg chewable 0-01 [id number] tablet by i ty of tablet 00:00: mouth [place] 00 daily. [facility] aspirin 81 2020- Yes [id number] 81mg Take 1 [facility] mg chewable 0-01 [id number] tablet by i ty of tablet 00:00: mouth [place] 00 daily. [facility] aspirin 81 2020- Yes [id number] 81mg Take 1 [facility] mg chewable 0-01 [id number] tablet by i ty of tablet 00:00: mouth [place] 00 daily. [facility] aspirin 81 2020- Yes [id number] 81mg Take 1 [facility] mg chewable 0-01 [id number] tablet by i ty of tablet 00:00: mouth [place] 00 daily. [facility] aspirin 81 2020- Yes [id number] 81mg Take 1 [facility] mg chewable 0-01 [id number] tablet by i ty of tablet 00:00: mouth [place] 00 daily. [facility] aspirin 81 2020- Yes [id number] 81mg Take 1 [facility] mg chewable 0-01 [id number] tablet by i ty of tablet 00:00: mouth [place] 00 daily. [facility] aspirin 81 2020- Yes [id number] 81mg Take 1 [facility] mg chewable 0-01 [id number] tablet by i ty of tablet 00:00: mouth [place] 00 daily. [facility] aspirin 81 2019- Yes [id number] 81mg Take 1 [facility] mg chewable 0-01 [id number] tablet by i ty of tablet 00:00: mouth [place] 00 daily. [facility] aspirin 81 2020- Yes [id number] 81mg Take 1 [facility] mg chewable 0-01 [id number] tablet by i ty of tablet 00:00: mouth [place] 00 daily. [facility] aspirin 81 2020- Yes [id number] 81mg Take 1 [facility] mg chewable 0-01 [id number] tablet by i ty of tablet 00:00: mouth [place] 00 daily. [facility] aspirin 81 2020- Yes [id number] 81mg Take 1 [facility] mg chewable 0-01 [id number] tablet by i ty of tablet 00:00: mouth [place] 00 daily. [facility] aspirin 81 2020- Yes [id number] 81mg Take 1 [facility] mg chewable 0-01 [id number] tablet by i ty of tablet 00:00: mouth [place] 00 daily. [facility] aspirin 81 2020- Yes [id number] 81mg Take 1 [facility] mg chewable 0-01 [id number] tablet by i ty of tablet 00:00: mouth [place] 00 daily. [facility] aspirin 81 2020- Yes [id number] 81mg Take 1 [facility] mg chewable 0-01 [id number] tablet by i ty of tablet 00:00: mouth [place] 00 daily. [facility] aspirin 81 2019-02 Yes [id number] 81mg Take 1 [facility] mg chewable 0-01 [id number] tablet by i ty of tablet 00:00: mouth [place] 00 daily. [facility] aspirin 81 2020- Yes [id number] 81mg Take 1 [facility] mg chewable 0-01 [id number] tablet by i ty of tablet 00:00: mouth [place] 00 daily. [facility] aspirin 81 2019- Yes [id number] 81mg Take 1 [facility] mg chewable 0-01 [id number] tablet by i ty of tablet 00:00: mouth [place] 00 daily. [facility] aspirin 81 2019- Yes [id number] 81mg Take 1 [facility] mg chewable 0-01 [id number] tablet by i ty of tablet 00:00: mouth [place] 00 daily. [facility] aspirin 81 2019- Yes [id number] 81mg Take 1 [facility] mg chewable 0-01 [id number] tablet by i ty of tablet 00:00: mouth [place] 00 daily. [facility] aspirin 81 2019- Yes [id number] 81mg Take 1 [facility] mg chewable 0-01 [id number] tablet by i ty of tablet 00:00: mouth [place] 00 daily. [facility] aspirin 81 2019- Yes [id number] 81mg Take 1 [facility] mg chewable 0-01 [id number] tablet by i ty of tablet 00:00: mouth [place] 00 daily. [facility] aspirin 81 2020- Yes [id number] 81mg Take 1 [facility] mg chewable 0-01 [id number] tablet by i ty of tablet 00:00: mouth [place] 00 daily. [facility] aspirin 81 2020- Yes [id number] 81mg Take 1 [facility] mg chewable 0-01 [id number] tablet by i ty of tablet 00:00: mouth [place] 00 daily. [facility] aspirin 81 2020- Yes [id number] 81mg Take 1 [facility] mg chewable 0-01 [id number] tablet by i ty of tablet 00:00: mouth [place] 00 daily. [facility] aspirin 81 2020- Yes [id number] 81mg Take 1 [facility] mg chewable 0-01 [id number] tablet by i ty of tablet 00:00: mouth [place] 00 daily. [facility] aspirin 81 2020- Yes [id number] 81mg Take 1 [facility] mg chewable 0-01 [id number] tablet by i ty of tablet 00:00: mouth [place] 00 daily. [facility] aspirin 81 2020- Yes [id number] 81mg Take 1 [facility] mg chewable 0-01 [id number] tablet by i ty of tablet 00:00: mouth [place] 00 daily. [facility] aspirin 81 2020- Yes [id number] 81mg Take 1 [facility] mg chewable 0-01 [id number] tablet by i ty of tablet 00:00: mouth [place] 00 daily. [facility] aspirin 81 2020- Yes [id number] 81mg Take 1 [facility] mg chewable 0-01 [id number] tablet by i ty of tablet 00:00: mouth [place] 00 daily. [facility] aspirin 81 2020- Yes [id number] 81mg Take 1 [facility] mg chewable 0-01 [id number] tablet by i ty of tablet 00:00: mouth [place] 00 daily. [facility] aspirin 81 2020- Yes [id number] 81mg Take 1 [facility] mg chewable 0-01 [id number] tablet by i ty of tablet 00:00: mouth [place] 00 daily. [facility] aspirin 81 2020- Yes [id number] 81mg Take 1 [facility] mg chewable 0-01 [id number] tablet by i ty of tablet 00:00: mouth [place] 00 daily. [facility] aspirin 81 2019- Yes [id number] 81mg Take 1 [facility] mg chewable 0-01 [id number] tablet by i ty of tablet 00:00: mouth [place] 00 daily. [facility] aspirin 81 2020- Yes [id number] 81mg Take 1 [facility] mg chewable 0-01 [id number] tablet by i ty of tablet 00:00: mouth [place] 00 daily. [facility] aspirin 81 2020- Yes [id number] 81mg Take 1 [facility] mg chewable 0-01 [id number] tablet by i ty of tablet 00:00: mouth [place] 00 daily. [facility] aspirin 81 2020- Yes [id number] 81mg Take 1 [facility] mg chewable 0-01 [id number] tablet by i ty of tablet 00:00: mouth [place] 00 daily. [facility] aspirin 81 2020- Yes [id number] 81mg Take 1 [facility] mg chewable 0-01 [id number] tablet by i ty of tablet 00:00: mouth [place] 00 daily. [facility] aspirin 81 2020- Yes [id number] 81mg Take 1 [facility] mg chewable 0-01 [id number] tablet by i ty of tablet 00:00: mouth [place] 00 daily. [facility] aspirin 81 2020- Yes [id number] 81mg Take 1 [facility] mg chewable 0-01 [id number] tablet by i ty of tablet 00:00: mouth [place] 00 daily. [facility] aspirin 81 2019-02 Yes [id number] 81mg Take 1 [facility] mg chewable 0-01 [id number] tablet by i ty of tablet 00:00: mouth [place] 00 daily. [facility] aspirin 81 2020- Yes [id number] 81mg Take 1 [facility] mg chewable 0-01 [id number] tablet by i ty of tablet 00:00: mouth [place] 00 daily. [facility] aspirin 81 2019- Yes [id number] 81mg Take 1 [facility] mg chewable 0-01 [id number] tablet by i ty of tablet 00:00: mouth [place] 00 daily. [facility] aspirin 81 2019- Yes [id number] 81mg Take 1 [facility] mg chewable 0-01 [id number] tablet by i ty of tablet 00:00: mouth [place] 00 daily. [facility] aspirin 81 2019- Yes [id number] 81mg Take 1 [facility] mg chewable 0-01 [id number] tablet by i ty of tablet 00:00: mouth [place] 00 daily. [facility] aspirin 81 2019- Yes [id number] 81mg Take 1 [facility] mg chewable 0-01 [id number] tablet by i ty of tablet 00:00: mouth [place] 00 daily. [facility] aspirin 81 2019- Yes [id number] 81mg Take 1 [facility] mg chewable 0-01 [id number] tablet by i ty of tablet 00:00: mouth [place] 00 daily. [facility] aspirin 81 2020- Yes [id number] 81mg Take 1 [facility] mg chewable 0-01 [id number] tablet by i ty of tablet 00:00: mouth [place] 00 daily. [facility] aspirin 81 2020- Yes [id number] 81mg Take 1 [facility] mg chewable 0-01 [id number] tablet by i ty of tablet 00:00: mouth [place] 00 daily. [facility] aspirin 81 2020- Yes [id number] 81mg Take 1 [facility] mg chewable 0-01 [id number] tablet by i ty of tablet 00:00: mouth [place] 00 daily. [facility] aspirin 81 2020- Yes [id number] 81mg Take 1 [facility] mg chewable 0-01 [id number] tablet by i ty of tablet 00:00: mouth [place] 00 daily. [facility] aspirin 81 2020- Yes [id number] 81mg Take 1 [facility] mg chewable 0-01 [id number] tablet by i ty of tablet 00:00: mouth [place] 00 daily. [facility] aspirin 81 2020- Yes [id number] 81mg Take 1 [facility] mg chewable 0-01 [id number] tablet by i ty of tablet 00:00: mouth [place] 00 daily. [facility] aspirin 81 2020- Yes [id number] 81mg Take 1 [facility] mg chewable 0-01 [id number] tablet by i ty of tablet 00:00: mouth [place] 00 daily. [facility] aspirin 81 2020- Yes [id number] 81mg Take 1 [facility] mg chewable 0-01 [id number] tablet by i ty of tablet 00:00: mouth [place] 00 daily. [facility] aspirin 81 2020- Yes [id number] 81mg Take 1 [facility] mg chewable 0-01 [id number] tablet by i ty of tablet 00:00: mouth [place] 00 daily. [facility] aspirin 81 2020- Yes [id number] 81mg Take 1 [facility] mg chewable 0-01 [id number] tablet by i ty of tablet 00:00: mouth [place] 00 daily. [facility] aspirin 81 2020- Yes [id number] 81mg Take 1 [facility] mg chewable 0-01 [id number] tablet by i ty of tablet 00:00: mouth [place] 00 daily. [facility] aspirin 81 2019- Yes [id number] 81mg Take 1 [facility] mg chewable 0-01 [id number] tablet by i ty of tablet 00:00: mouth [place] 00 daily. [facility] aspirin 81 2020- Yes [id number] 81mg Take 1 [facility] mg chewable 0-01 [id number] tablet by i ty of tablet 00:00: mouth [place] 00 daily. [facility] aspirin 81 2020- Yes [id number] 81mg Take 1 [facility] mg chewable 0-01 [id number] tablet by i ty of tablet 00:00: mouth [place] 00 daily. [facility] aspirin 81 2020- Yes [id number] 81mg Take 1 [facility] mg chewable 0-01 [id number] tablet by i ty of tablet 00:00: mouth [place] 00 daily. [facility] aspirin 81 2020- Yes [id number] 81mg Take 1 [facility] mg chewable 0-01 [id number] tablet by i ty of tablet 00:00: mouth [place] 00 daily. [facility] aspirin 81 2020- Yes [id number] 81mg Take 1 [facility] mg chewable 0-01 [id number] tablet by i ty of tablet 00:00: mouth [place] 00 daily. [facility] aspirin 81 2020- Yes [id number] 81mg Take 1 [facility] mg chewable 0-01 [id number] tablet by i ty of tablet 00:00: mouth [place] 00 daily. [facility] aspirin 81 2019-02 Yes [id number] 81mg Take 1 [facility] mg chewable 0-01 [id number] tablet by i ty of tablet 00:00: mouth [place] 00 daily. [facility] aspirin 81 2020- Yes [id number] 81mg Take 1 [facility] mg chewable 0-01 [id number] tablet by i ty of tablet 00:00: mouth [place] 00 daily. [facility] aspirin 81 2019- Yes [id number] 81mg Take 1 [facility] mg chewable 0-01 [id number] tablet by i ty of tablet 00:00: mouth [place] 00 daily. [facility] aspirin 81 2019- Yes [id number] 81mg Take 1 [facility] mg chewable 0-01 [id number] tablet by i ty of tablet 00:00: mouth [place] 00 daily. [facility] aspirin 81 2019- Yes [id number] 81mg Take 1 [facility] mg chewable 0-01 [id number] tablet by i ty of tablet 00:00: mouth [place] 00 daily. [facility] aspirin 81 2019- Yes [id number] 81mg Take 1 [facility] mg chewable 0-01 [id number] tablet by i ty of tablet 00:00: mouth [place] 00 daily. [facility] aspirin 81 2019- Yes [id number] 81mg Take 1 [facility] mg chewable 0-01 [id number] tablet by i ty of tablet 00:00: mouth [place] 00 daily. [facility] aspirin 81 2020- Yes [id number] 81mg Take 1 [facility] mg chewable 0-01 [id number] tablet by i ty of tablet 00:00: mouth [place] 00 daily. [facility] aspirin 81 2020- Yes [id number] 81mg Take 1 [facility] mg chewable 0-01 [id number] tablet by i ty of tablet 00:00: mouth [place] 00 daily. [facility] aspirin 81 2020- Yes [id number] 81mg Take 1 [facility] mg chewable 0-01 [id number] tablet by i ty of tablet 00:00: mouth [place] 00 daily. [facility] aspirin 81 2020- Yes [id number] 81mg Take 1 [facility] mg chewable 0-01 [id number] tablet by i ty of tablet 00:00: mouth [place] 00 daily. [facility] aspirin 81 2020- Yes [id number] 81mg Take 1 [facility] mg chewable 0-01 [id number] tablet by i ty of tablet 00:00: mouth [place] 00 daily. [facility] aspirin 81 2020- Yes [id number] 81mg Take 1 [facility] mg chewable 0-01 [id number] tablet by i ty of tablet 00:00: mouth [place] 00 daily. [facility] aspirin 81 2020- Yes [id number] 81mg Take 1 [facility] mg chewable 0-01 [id number] tablet by i ty of tablet 00:00: mouth [place] 00 daily. [facility] aspirin 81 2020- Yes [id number] 81mg Take 1 [facility] mg chewable 0-01 [id number] tablet by i ty of tablet 00:00: mouth [place] 00 daily. [facility] aspirin 81 2020- Yes [id number] 81mg Take 1 [facility] mg chewable 0-01 [id number] tablet by i ty of tablet 00:00: mouth [place] 00 daily. [facility] aspirin 81 2020- Yes [id number] 81mg Take 1 [facility] mg chewable 0-01 [id number] tablet by i ty of tablet 00:00: mouth [place] 00 daily. [facility] aspirin 81 2020- Yes [id number] 81mg Take 1 [facility] mg chewable 0-01 [id number] tablet by i ty of tablet 00:00: mouth [place] 00 daily. [facility] aspirin 81 2019- Yes [id number] 81mg Take 1 [facility] mg chewable 0-01 [id number] tablet by i ty of tablet 00:00: mouth [place] 00 daily. [facility] aspirin 81 2020- Yes [id number] 81mg Take 1 [facility] mg chewable 0-01 [id number] tablet by i ty of tablet 00:00: mouth [place] 00 daily. [facility] aspirin 81 2020- Yes [id number] 81mg Take 1 [facility] mg chewable 0-01 [id number] tablet by i ty of tablet 00:00: mouth [place] 00 daily. [facility] aspirin 81 2020- Yes [id number] 81mg Take 1 [facility] mg chewable 0-01 [id number] tablet by i ty of tablet 00:00: mouth [place] 00 daily. [facility] aspirin 81 2020- Yes [id number] 81mg Take 1 [facility] mg chewable 0-01 [id number] tablet by i ty of tablet 00:00: mouth [place] 00 daily. [facility] aspirin 81 2020- Yes [id number] 81mg Take 1 [facility] mg chewable 0-01 [id number] tablet by i ty of tablet 00:00: mouth [place] 00 daily. [facility] aspirin 81 2020- Yes [id number] 81mg Take 1 [facility] mg chewable 0-01 [id number] tablet by i ty of tablet 00:00: mouth [place] 00 daily. [facility] aspirin 81 2019-02 Yes [id number] 81mg Take 1 [facility] mg chewable 0-01 [id number] tablet by i ty of tablet 00:00: mouth [place] 00 daily. [facility] aspirin 81 2020- Yes [id number] 81mg Take 1 [facility] mg chewable 0-01 [id number] tablet by i ty of tablet 00:00: mouth [place] 00 daily. [facility] aspirin 81 2019- Yes [id number] 81mg Take 1 [facility] mg chewable 0-01 [id number] tablet by i ty of tablet 00:00: mouth [place] 00 daily. [facility] aspirin 81 2019- Yes [id number] 81mg Take 1 [facility] mg chewable 0-01 [id number] tablet by i ty of tablet 00:00: mouth [place] 00 daily. [facility] aspirin 81 2019- Yes [id number] 81mg Take 1 [facility] mg chewable 0-01 [id number] tablet by i ty of tablet 00:00: mouth [place] 00 daily. [facility] aspirin 81 2019- Yes [id number] 81mg Take 1 [facility] mg chewable 0-01 [id number] tablet by i ty of tablet 00:00: mouth [place] 00 daily. [facility] aspirin 81 2019- Yes [id number] 81mg Take 1 [facility] mg chewable 0-01 [id number] tablet by i ty of tablet 00:00: mouth [place] 00 daily. [facility] aspirin 81 2020- Yes [id number] 81mg Take 1 [facility] mg chewable 0-01 [id number] tablet by i ty of tablet 00:00: mouth [place] 00 daily. [facility] aspirin 81 2020- Yes [id number] 81mg Take 1 [facility] mg chewable 0-01 [id number] tablet by i ty of tablet 00:00: mouth [place] 00 daily. [facility] aspirin 81 2020- Yes [id number] 81mg Take 1 [facility] mg chewable 0-01 [id number] tablet by i ty of tablet 00:00: mouth [place] 00 daily. [facility] aspirin 81 2020- Yes [id number] 81mg Take 1 [facility] mg chewable 0-01 [id number] tablet by i ty of tablet 00:00: mouth [place] 00 daily. [facility] aspirin 81 2020- Yes [id number] 81mg Take 1 [facility] mg chewable 0-01 [id number] tablet by i ty of tablet 00:00: mouth [place] 00 daily. [facility] aspirin 81 2020- Yes [id number] 81mg Take 1 [facility] mg chewable 0-01 [id number] tablet by i ty of tablet 00:00: mouth [place] 00 daily. [facility] aspirin 81 2020- Yes [id number] 81mg Take 1 [facility] mg chewable 0-01 [id number] tablet by i ty of tablet 00:00: mouth [place] 00 daily. [facility] aspirin 81 2020- Yes [id number] 81mg Take 1 [facility] mg chewable 0-01 [id number] tablet by i ty of tablet 00:00: mouth [place] 00 daily. [facility] aspirin 81 2020- Yes [id number] 81mg Take 1 [facility] mg chewable 0-01 [id number] tablet by i ty of tablet 00:00: mouth [place] 00 daily. [facility] aspirin 81 2020- Yes [id number] 81mg Take 1 [facility] mg chewable 0-01 [id number] tablet by i ty of tablet 00:00: mouth [place] 00 daily. [facility] aspirin 81 2020- Yes [id number] 81mg Take 1 [facility] mg chewable 0-01 [id number] tablet by i ty of tablet 00:00: mouth [place] 00 daily. [facility] aspirin 81 2019- Yes [id number] 81mg Take 1 [facility] mg chewable 0-01 [id number] tablet by i ty of tablet 00:00: mouth [place] 00 daily. [facility] aspirin 81 2020- Yes [id number] 81mg Take 1 [facility] mg chewable 0-01 [id number] tablet by i ty of tablet 00:00: mouth [place] 00 daily. [facility] aspirin 81 2020- Yes [id number] 81mg Take 1 [facility] mg chewable 0-01 [id number] tablet by i ty of tablet 00:00: mouth [place] 00 daily. [facility] aspirin 81 2020- Yes [id number] 81mg Take 1 [facility] mg chewable 0-01 [id number] tablet by i ty of tablet 00:00: mouth [place] 00 daily. [facility] aspirin 81 2020- Yes [id number] 81mg Take 1 [facility] mg chewable 0-01 [id number] tablet by i ty of tablet 00:00: mouth [place] 00 daily. [facility] aspirin 81 2020- Yes [id number] 81mg Take 1 [facility] mg chewable 0-01 [id number] tablet by i ty of tablet 00:00: mouth [place] 00 daily. [facility] aspirin 81 2020- Yes [id number] 81mg Take 1 [facility] mg chewable 0-01 [id number] tablet by i ty of tablet 00:00: mouth [place] 00 daily. [facility] aspirin 81 2019-02 Yes [id number] 81mg Take 1 [facility] mg chewable 0-01 [id number] tablet by i ty of tablet 00:00: mouth [place] 00 daily. [facility] aspirin 81 2020- Yes [id number] 81mg Take 1 [facility] mg chewable 0-01 [id number] tablet by i ty of tablet 00:00: mouth [place] 00 daily. [facility] aspirin 81 2019- Yes [id number] 81mg Take 1 [facility] mg chewable 0-01 [id number] tablet by i ty of tablet 00:00: mouth [place] 00 daily. [facility] aspirin 81 2019- Yes [id number] 81mg Take 1 [facility] mg chewable 0-01 [id number] tablet by i ty of tablet 00:00: mouth [place] 00 daily. [facility] aspirin 81 2019- Yes [id number] 81mg Take 1 [facility] mg chewable 0-01 [id number] tablet by i ty of tablet 00:00: mouth [place] 00 daily. [facility] aspirin 81 2019- Yes [id number] 81mg Take 1 [facility] mg chewable 0-01 [id number] tablet by i ty of tablet 00:00: mouth [place] 00 daily. [facility] aspirin 81 2019- Yes [id number] 81mg Take 1 [facility] mg chewable 0-01 [id number] tablet by i ty of tablet 00:00: mouth [place] 00 daily. [facility] aspirin 81 2020- Yes [id number] 81mg Take 1 [facility] mg chewable 0-01 [id number] tablet by i ty of tablet 00:00: mouth [place] 00 daily. [facility] aspirin 81 2020- Yes [id number] 81mg Take 1 [facility] mg chewable 0-01 [id number] tablet by i ty of tablet 00:00: mouth [place] 00 daily. [facility] aspirin 81 2020- Yes [id number] 81mg Take 1 [facility] chewable 0-01 [id number] tablet by i ty of tablet 00:00: mouth [place] 00 daily. [facility] aspirin 81 2020- Yes [id number] 81mg Take 1 [facility] mg chewable 0-01 [id number] tablet by i ty of tablet 00:00: mouth [place] 00 daily. [facility] aspirin 81 2020- Yes [id number] 81mg Take 1 [facility] mg chewable 0-01 [id number] tablet by i ty of tablet 00:00: mouth [place] 00 daily. [facility] aspirin 81 2020- Yes [id number] 81mg Take 1 [facility] mg chewable 0-01 [id number] tablet by i ty of tablet 00:00: mouth [place] 00 daily. [facility] aspirin 81 2019- Yes [id number] 81mg Take 1 [facility] mg chewable 0-01 [id number] tablet by i ty of tablet 00:00: mouth [place] 00 daily. [facility] aspirin 81 2019- Yes [id number] 81mg Take 1 [facility] mg chewable 0-01 [id number] tablet by i ty of tablet 00:00: mouth [place] 00 daily. [facility] aspirin 81 2019-02 Yes [id number] 81mg Take 1 [facility] mg chewable 0-01 [id number] tablet by i ty of tablet 00:00: mouth [place] 00 daily. [facility] aspirin 81 2019-02 Yes [id number] 81mg Take 1 [facility] mg chewable 0-01 [id number] tablet by i ty of tablet 00:00: mouth [place] 00 daily. [facility] aspirin 81 2019- Yes [id number] 81mg Take 1 [facility] mg chewable 0-01 [id number] tablet by i ty of tablet 00:00: mouth [place] 00 daily. [facility] aspirin 81 2019- Yes [id number] 81mg Take 1 [facility] mg chewable 0-01 [id number] tablet by i ty of tablet 00:00: mouth [place] 00 daily. [facility] aspirin 81 2019- Yes [id number] 81mg Take 1 [facility] mg chewable 0-01 [id number] tablet by i ty of tablet 00:00: mouth [place] 00 daily. [facility] aspirin 81 2020- Yes [id number] 81mg Take 1 [facility] mg chewable 0-01 [id number] tablet by i ty of tablet 00:00: mouth [place] 00 daily. [facility] aspirin 81 2019- Yes [id number] 81mg Take 1 [facility] mg chewable 0-01 [id number] tablet by i ty of tablet 00:00: mouth [place] 00 daily. [facility] aspirin 81 2019- Yes [id number] 81mg Take 1 [facility] mg chewable 0-01 [id number] tablet by i ty of tablet 00:00: mouth [place] 00 daily. [facility] pantoprazol 2019-02- No [id number] 20mg Take 1 [facility] e 20 mg EC 0-01 07-15 tablet by ity of tablet 00:00: 00:00 mouth [place] 00 :00 daily. Medical Take 30 Branch mins before breakfast. pantoprazol 2019-02- No [id number] 20mg Take 1 [facility] e 20 mg [...] for premedicat ion hydrALAZINE 2020-0 Yes 50mg Q.[id number] Take [address] [facility] (APRESOLINE 2-17 [id number] by [facility] ) 50 MG 00:00: 3D (three) Medical tablet 00 times Center daily . hydroCHLORO 2020-0 Yes 25mg QD Take [address] [facility] thiazide 2-17 [facility] (HYDRODIURI 00:00: daily. [facility]) 25 MG 00 Center tablet hydrALAZINE 2020-0 Yes 50mg Q.[id number] Take [address] [facility] (APRESOLINE 2-17 [id number] by [facility] ) 50 MG 00:00: 3D (three) Medical tablet 00 times Center daily . hydroCHLORO 2020-0 Yes 25mg QD Take [address] [facility] thiazide 2-17 [facility] (HYDRODIURI 00:00: daily. [facility]) 25 MG 00 Center tablet hydrALAZINE 2020-0 Yes 50mg Q.[id number] Take [address] [facility] (APRESOLINE 2-17 [id number] by mouth [facility] ) 50 MG 00:00: 3D (three) Medical tablet 00 times Center daily . hydroCHLORO 2020-0 Yes 25mg QD Take [address] [facility] thiazide 2-17 by [facility] (HYDRODIURI 00:00: daily. [facility]) 25 MG 00 Center tablet hydrALAZINE 2020-0 Yes 50mg Q.[id number] Take [address] [facility] (APRESOLINE 2-17 [id number] by [facility] ) 50 MG 00:00: 3D (three) Medical tablet 00 times Center daily . hydroCHLORO 2020-0 Yes 25mg QD Take [address] [facility] thiazide 2-17 by [facility] (HYDRODIURI 00:00: daily. [facility]) 25 MG 00 Center tablet hydrALAZINE 2020-0 Yes 50mg Q.[id number] Take [address] [facility] (APRESOLINE 2-17 [id number] by mouth [facility] ) 50 MG 00:00: 3D (three) Medical tablet 00 times Center daily . hydroCHLORO 2020-0 Yes 25mg QD Take [address] [facility] thiazide 2-17 by mouth [facility] (HYDRODIURI 00:00: daily. [facility]) 25 MG 00 Center tablet hydrALAZINE 2020-0 Yes 50mg Q.[id number] Take [address] [facility] (APRESOLINE 2-17 [id number] by mouth [facility] ) 50 MG 00:00: 3D (three) Medical tablet 00 times Center daily . hydroCHLORO 2020-0 Yes 25mg QD Take [address] [facility] thiazide 2-17 by mouth [facility] (HYDRODIURI 00:00: daily. [facility]) 25 MG 00 Center tablet hydrALAZINE 2020-0 Yes 50mg Q.[id number] Take [address] [facility] (APRESOLINE 2-17 [id number] by mouth [facility] ) 50 MG 00:00: 3D (three) Medical tablet 00 times Center daily . hydroCHLORO 2020-0 Yes 25mg QD Take [address] [facility] thiazide 2-17 by [facility] (HYDRODIURI 00:00: daily. [facility]) 25 MG 00 Center tablet hydrALAZINE 2020-0 Yes 50mg Q.[id number] Take [address] [facility] (APRESOLINE 2-17 [id number] by mouth [facility] ) 50 MG 00:00: 3D (three) Medical tablet 00 times Center daily . hydroCHLORO 2020-0 Yes 25mg QD Take [address] [facility] thiazide 2-17 by [facility] (HYDRODIURI 00:00: daily. [facility]) 25 MG 00 Center tablet hydrALAZINE 2020-0 Yes 50mg Q.[id number] Take [address] [facility] (APRESOLINE 2-17 [id number] by mouth [facility] ) 50 MG 00:00: 3D (three) Medical tablet 00 times Center daily . hydroCHLORO 2020-0 Yes 25mg QD Take [address] [facility] thiazide 2-17 by [facility] (HYDRODIURI 00:00: daily. [facility]) 25 MG 00 Center tablet hydrALAZINE 2020-0 Yes 50mg Q.[id number] Take [address] [facility] (APRESOLINE 2-17 [id number] by mouth [facility] ) 50 MG 00:00: 3D (three) Medical tablet 00 times Center daily . hydroCHLORO 2020-0 Yes 25mg QD Take [address] [facility] thiazide 2-17 by [facility] (HYDRODIURI 00:00: daily. [facility]) 25 MG 00 Center tablet hydrALAZINE 2020-0 Yes 50mg Q.[id number] Take [address] [facility] (APRESOLINE 2-17 [id number] by mouth [facility] ) 50 MG 00:00: 3D (three) Medical tablet 00 times Center daily . hydroCHLORO 2020-0 Yes 25mg QD Take [address] [facility] thiazide 2-17 by [facility] (HYDRODIURI 00:00: daily. [facility]) 25 MG 00 Center tablet hydrALAZINE 2020-0 Yes 50mg Q.[id number] Take [address] [facility] (APRESOLINE 2-17 [id number] by mouth [facility] ) 50 MG 00:00: 3D (three) Medical tablet 00 times Center daily . hydroCHLORO 2020-0 Yes 25mg QD Take [address] [facility] thiazide 2-17 by mouth [facility] (HYDRODIURI 00:00: daily. [facility]) 25 MG 00 Center tablet hydrALAZINE 2020-0 Yes 50mg Q.[id number] Take [address] [facility] (APRESOLINE 2-17 [id number] by mouth [facility] ) 50 MG 00:00: 3D (three) Medical tablet 00 times Center daily . hydroCHLORO 2020-0 Yes 25mg QD Take [address] [facility] thiazide 2-17 by mouth [facility] (HYDRODIURI 00:00: daily. [facility]) 25 MG 00 Center tablet hydrALAZINE 2020-0 Yes 50mg Q.[id number] Take [address] [facility] (APRESOLINE 2-17 [id number] by mouth [facility] ) 50 MG 00:00: 3D (three) Medical tablet 00 times Center daily . hydroCHLORO 2020-0 Yes 25mg QD Take [address] [facility] thiazide 2-17 by mouth [facility] (HYDRODIURI 00:00: daily. [facility]) 25 MG 00 Center tablet hydrALAZINE 2020-0 Yes 50mg Q.[id number] Take [address] [facility] (APRESOLINE 2-17 [id number] by mouth [facility] ) 50 MG 00:00: 3D (three) Medical tablet 00 times Center daily . hydroCHLORO 2020-0 Yes 25mg QD Take [address] [facility] thiazide 2-17 by mouth [facility] (HYDRODIURI 00:00: daily. [facility]) 25 MG 00 Center tablet hydrALAZINE 2020-0 Yes 50mg Q.[id number] Take [address] [facility] (APRESOLINE 2-17 [id number] by mouth [facility] ) 50 MG [...] by mouth [facility] tablet 00:00: daily. [address] aspirin 81 2019-0 Yes 81mg QD Take [address] [facility] chewable 6-21 by mouth [facility] tablet 00:00: daily. [address] aspirin 81 2019-0 Yes 81mg QD Take [address] [facility] chewable 6-21 by mouth [facility] tablet 00:00: daily. [address] aspirin 81 2019-0 Yes 81mg QD Take [address] [facility] chewable 6-21 by mouth [facility] tablet 00:00: daily. [address] aspirin 81 2019-0 Yes 81mg QD Take [address] [facility] chewable 6-21 by mouth [facility] tablet 00:00: daily. [address] aspirin 81 2019-0 Yes 81mg QD Take [address] [facility] chewable 6-21 by mouth [facility] tablet 00:00: daily. [address] aspirin 81 2019-0 Yes 81mg QD Take [address] MG chewable 6-21 by mouth [facility] tablet 00:00: daily. [address] aspirin 81 2019-0 Yes 81mg QD Take [address] MG chewable 6-21 by mouth [facility] tablet 00:00: daily. [address] aspirin 81 2019-0 Yes 81mg QD Take [address] MG chewable 6-21 by mouth [facility] tablet 00:00: daily. [address] aspirin 81 2019-0 Yes 81mg QD Take [address] MG chewable 6-21 by mouth [facility] tablet 00:00: daily. [address] aspirin 81 2019-0 Yes 81mg QD Take [address] MG chewable 6-21 by mouth [facility] tablet 00:00: daily. [address] aspirin 81 2019-0 Yes 81mg QD Take [address] MG chewable 6-21 by mouth [facility] tablet 00:00: daily. [address] aspirin 81 2019-0 Yes 81mg QD Take [address] MG chewable 6-21 by mouth [facility] tablet 00:00: daily. [address] aspirin 81 2019-0 Yes 81mg QD Take [address] MG chewable 6-21 by mouth [facility] tablet 00:00: daily. [address] aspirin 81 2019-0 Yes 81mg QD Take [address] MG chewable 6-21 by mouth [facility] tablet 00:00: daily. [address] aspirin 81 2019-0 Yes 81mg QD Take [address] MG chewable 6-21 by mouth [facility] tablet 00:00: daily. [address] atorvastati 2017- Yes 40mg QD Take [address] [facility] (LIPITOR) 1-30 by mouth [facility] 40 MG 00:00: daily. Medical tablet [address] [place] [address] amLODIPine 2017 Yes 2.5mg QD Take 2.[address] (NORVASC) 5 1-30 mg by [facility] tablet 00:00: mouth [facility] 00 daily . [place] atorvastati 2017-02 Yes 40mg QD Take [address] [facility] (LIPITOR) 1-30 by mouth [facility] 40 MG 00:00: daily. Medical tablet 00 [place] amLODIPine 2017-02 Yes 2.5mg QD Take 2.[address] (NORVASC) 5 1-30 mg by [facility] tablet 00:00: mouth Medical 00 daily . [place] atorvastati 2017-02 Yes 40mg QD Take [address] [facility] (LIPITOR) 1-30 by mouth [facility] 40 MG 00:00: daily. Medical tablet 00 [place] amLODIPine 2017-02 Yes 2.5mg QD Take 2.[address] (NORVASC) 5 1-30 mg by [facility] tablet 00:00: mouth Medical 00 daily . [place] atorvastati 2017-02 Yes 40mg QD Take [address] [facility] (LIPITOR) 1-30 by mouth [facility] 40 MG 00:00: daily. Medical tablet 00 [place] amLODIPine 2017-02 Yes 2.5mg QD Take 2.[address] (NORVASC) 5 1-30 mg by [facility] tablet 00:00: mouth Medical 00 daily . [place] atorvastati 2017-02 Yes 40mg QD Take [address] [facility] (LIPITOR) 1-30 by mouth [facility] 40 MG 00:00: daily. Medical tablet 00 [place] amLODIPine 2017-02 Yes 2.5mg QD Take 2.[address] (NORVASC) 5 1-30 mg by [facility] tablet 00:00: mouth Medical 00 daily . [place] atorvastati 2017-02 Yes 40mg QD Take [address] [facility] (LIPITOR) 1-30 by mouth [facility] 40 MG 00:00: daily. Medical tablet 00 [place] amLODIPine 2017-02 Yes 2.5mg QD Take 2.[address] (NORVASC) 5 1-30 mg by [facility] tablet 00:00: mouth Medical 00 daily . [place] atorvastati 2017-02 Yes 40mg QD Take [address] [facility] (LIPITOR) 1-30 by mouth [facility] 40 MG 00:00: daily. Medical tablet 00 [place] amLODIPine 2017-02 Yes 2.5mg QD Take 2.[address] (NORVASC) 5 1-30 mg by [facility] tablet 00:00: mouth Medical 00 daily . [place] atorvastati 2017-02 Yes 40mg QD Take [address] [facility] (LIPITOR) 1-30 by mouth [facility] 40 MG 00:00: daily. Medical tablet 00 [place] amLODIPine 2017-02 Yes 2.5mg QD Take 2.[address] (NORVASC) 5 1-30 mg by [facility] tablet 00:00: mouth Medical 00 daily . [place] atorvastati 2017-02 Yes 40mg QD Take [address] [facility] (LIPITOR) 1-30 by mouth [facility] 40 MG 00:00: daily. Medical tablet 00 [place] amLODIPine 2017-02 Yes 2.5mg QD Take 2.[address] (NORVASC) 5 1-30 mg by [facility] tablet 00:00: mouth Medical 00 daily . [place] atorvastati 2017-02 Yes 40mg QD Take [address] [facility] (LIPITOR) 1-30 by mouth [facility] 40 MG 00:00: daily. Medical tablet 00 [place] amLODIPine 2017-02 Yes 2.5mg QD Take 2.[address] (NORVASC) 5 1-30 mg by [facility] tablet 00:00: mouth Medical 00 daily . [place] atorvastati 2017-02 Yes 40mg QD Take [address] [facility] (LIPITOR) 1-30 by mouth [facility] 40 MG 00:00: daily. Medical tablet 00 [place] amLODIPine 2017-02 Yes 2.5mg QD Take 2.[address] (NORVASC) 5 1-30 mg by [facility] tablet 00:00: mouth Medical 00 daily . [place] atorvastati 2017-02 Yes 40mg QD Take [address] [facility] (LIPITOR) 1-30 by mouth [facility] 40 MG 00:00: daily. Medical tablet 00 [place] amLODIPine 2017-02 Yes 2.5mg QD Take 2.[address] (NORVASC) 5 1-30 mg by [facility] tablet 00:00: mouth Medical 00 daily . [place] atorvastati 2017-02 Yes 40mg QD Take [address] [facility] (LIPITOR) 1-30 by mouth [facility] 40 MG 00:00: daily. Medical tablet 00 [place] amLODIPine 2017-02 Yes 2.5mg QD Take 2.[address] (NORVASC) 5 1-30 mg by [facility] tablet 00:00: mouth Medical 00 daily . [place] atorvastati 2017-02 Yes 40mg QD Take [address] [facility] n (LIPITOR) 1-30 by mouth [facility] 40 MG 00:00: daily. Medical tablet 00 [place] amLODIPine 2017-02 Yes 2.5mg QD Take 2.[address] (NORVASC) 5 1-30 mg by [facility] tablet 00:00: mouth Medical 00 daily . [place] atorvastati 2017-02 Yes 40mg QD Take [address] [facility] n (LIPITOR) 1-30 by mouth [facility] 40 MG 00:00: daily. Medical tablet 00 [place] amLODIPine 2017-02 Yes 2.5mg QD Take 2.[address] (NORVASC) 5 1-30 mg by [facility] tablet 00:00: mouth Medical 00 daily . [place] atorvastati 2017-02 Yes 40mg QD Take [address] [facility] n (LIPITOR) 1-30 by mouth [facility] 40 MG 00:00: daily. Medical tablet 00 [place] amLODIPine 2017-02 Yes 2.5mg QD Take 2.[address] (NORVASC) 5 1-30 mg by [facility] tablet 00:00: mouth Medical 00 daily . Center Immunizations Ordered Filled Date Status Comments Source Immunization Name Immunization Name Pneumococcal 2022-05-17 Completed [facility] Conjugate, PCV20 00:00:00 [facility] dical (Prevnar 20) Branch Pneumococcal 20 2022-05-17 Completed [facility] of Conjugate, PCV20 00:00:00 [facility] dical (Prevnar 20) Branch Pneumococcal 20 2022-05-17 Completed [facility] of Conjugate, PCV20 00:00:00 [facility] dical (Prevnar 20) Branch Pneumococcal 20 2022-05-17 Completed [facility] y of Conjugate, PCV20 00:00:00 [facility] dical (Prevnar 20) Branch Pneumococcal 20 2022-05-17 Completed [facility] of Conjugate, PCV20 00:00:00 [facility] dical (Prevnar 20) Branch Pneumococcal 20 2022-05-17 Completed [facility] of Conjugate, PCV20 00:00:00 [facility] dical (Prevnar 20) Branch Pneumococcal [...] Universit y of Conjugate, PCV20 00:00:00 [place] [facility] (Prevnar 20) Branch Pneumococcal 20 2022-05-17 [...] Universit y of Conjugate, PCV20 00:00:00 [place] [facility] (Prevnar 20) Branch Pneumococcal 20 2022-05-17 [...] Universit y of Conjugate, PCV20 00:00:00 [place] [facility] (Prevnar 20) Branch Pneumococcal 20 2022-05-17 [...] Universit y of Conjugate, PCV20 00:00:00 [place] [facility] (Prevnar 20) Branch Pneumococcal 20 2022-05-17 [...] Universit y of Conjugate, PCV20 00:00:00 [place] [facility] (Prevnar 20) Branch Pneumococcal 20 2022-05-17 Completed [facility] of Conjugate, PCV20 00:00:00 [place] [facility] (Prevnar 20) Branch Pneumococcal 20 2022-05-17 Completed [facility] y of Conjugate, PCV20 00:00:00 [place] [facility] (Prevnar 20) Branch Pneumococcal 20 2022-05-17 Completed [facility] y of Conjugate, PCV20 00:00:00 [place] [facility] (Prevnar 20) Branch Pneumococcal 20 2022-05-17 Completed [facility] y of Conjugate, PCV20 00:00:00 [place] [facility] (Prevnar 20) Branch Pneumococcal 20 2022-05-17 Completed [facility] y of Conjugate, PCV20 00:00:00 [place] [facility] (Prevnar 20) Branch Pneumococcal 20 2022-05-17 Completed [facility] y of Conjugate, PCV20 00:00:00 [place] [facility] (Prevnar 20) Branch Pneumococcal 20 2022-05-17 Completed [facility] y of Conjugate, PCV20 00:00:00 [place] [facility] (Prevnar 20) Branch Pneumococcal 20 2022-05-17 Completed [facility] y of Conjugate, PCV20 00:00:00 [place] [facility] (Prevnar 20) Branch Pneumococcal 20 2022-05-17 Completed [facility] of Conjugate, PCV20 00:00:00 [place] [facility] (Prevnar 20) Branch Pneumococcal 20 2022-05-17 Completed [facility] y of Conjugate, PCV20 00:00:00 [place] [facility] (Prevnar 20) Branch Pneumococcal 20 2022-05-17 Completed [facility] y of Conjugate, PCV20 00:00:00 [facility] dical (Prevnar 20) Branch Pneumococcal 20 2022-05-17 Completed Univers[facility] y of Conjugate, PCV20 00:00:00 [place] [facility] (Prevnar 20) Branch Pneumococcal 20 2022-05-17 Completed [facility] y of Conjugate, PCV20 00:00:00 [place] [facility] (Prevnar 20) Branch Pneumococcal 20 2022-05-17 Completed [facility] y of Conjugate, PCV20 00:00:00 [place] [facility] (Prevnar 20) Branch Pneumococcal 20 2022-05-17 Completed [facility] y of Conjugate, PCV20 00:00:00 [place] [facility] (Prevnar 20) Branch Pneumococcal 20 2022-05-17 Completed [facility] y of Conjugate, PCV20 00:00:00 [facility] dical (Prevnar 20) Branch Pneumococcal 20 2022-05-17 Completed Univers[facility] y of Conjugate, PCV20 00:00:00 [facility] dical (Prevnar 20) Branch Pneumococcal 20 2022-05-17 Completed Univers[facility] y of Conjugate, PCV20 00:00:00 [facility] dical (Prevnar 20) Branch Influenza Virus 2021-12-24 [...] 2019-11-08 Completed [facility] of [facility] 00:00:00 [place] [facility] Influenza High Dose 2019-11-08 Completed [facility]ive rs[facility] of [facility] 00:00:00 [facility] Influenza High Dose 2019-11-08 Completed Unive rsity of [facility] 00:00:00 [facility] Influenza High Dose 2019-11-08 Completed Unive rsity of [facility] 00:00:00 [facility] Influenza High Dose 2019-11-08 Completed Unive rsity of [facility] 00:00:00 [facility] [place] [facility] Influenza High Dose 2019-11-08 Completed Unive rsity of [facility] 00:00:00 [facility] [place] [facility] Influenza High Dose 2019-11-08 Completed Unive rsity of [facility] 00:00:00 [facility] Influenza High Dose 2019-11-08 Completed Unive rsity of [facility] 00:00:00 [facility] Influenza High Dose 2019-11-08 Completed Unive rsity of [facility] 00:00:00 [facility] [place] [facility] Influenza High Dose 2019-11-08 Completed Unive rsity of [facility] 00:00:00 [facility] [place] [facility] Influenza High Dose 2019-11-08 Completed Unive rsity of [facility] 00:00:00 [facility] [place] [facility] Influenza High Dose 2019-11-08 Completed Unive rsity of [facility] 00:00:00 [place] [facility] Influenza High Dose 2019-11-08 Completed Unive rsity of [facility] 00:00:00 [facility] Influenza High Dose 2019-11-08 Completed [facility]ive rsity of [facility] 00:00:00 [facility] Influenza High Dose 2019-11-08 Completed [facility]ive [facility] of [facility] 00:00:00 [facility] Influenza High Dose 2019-11-08 Completed [facility]ive [facility] of [facility] 00:00:00 [facility] Influenza High Dose 2019-11-08 Completed [facility] of [facility] 00:00:00 [facility] Influenza High Dose 2019-11-08 Completed [facility]ive [facility] of [facility] 00:00:00 [facility] Influenza High Dose 2019-11-08 Completed [facility]ive [facility] of [facility] 00:00:00 [facility] Influenza High Dose 2019-11-08 Completed Unive rsity of 00:00:00 [facility] Influenza High Dose 2019-11-08 Completed Unive rsity of [facility] 00:00:00 [facility] Influenza High Dose 2019-11-08 Completed Unive rsity of 00:00:00 [facility] Influenza High Dose 2019-11-08 Completed [facility]ive [facility] of [facility] 00:00:00 [facility] Influenza High Dose 2019-11-08 Completed Unive rsity of 00:00:00 [facility] Influenza High Dose 2019-11-08 Completed [facility]ive [facility] of [facility] 00:00:00 [facility] Influenza High Dose 2019-11-08 Completed Unive rsity of 00:00:00 [facility] Influenza High Dose 2019-11-08 Completed [facility]ive [facility] of [facility] 00:00:00 [facility] Influenza High Dose 2019-11-08 Completed Unive rsity of 00:00:00 [facility] Influenza High Dose 2019-11-08 Completed [facility]ive [facility] of [facility] 00:00:00 [facility] Influenza High Dose 2019-11-08 Completed Unive rsity of 00:00:00 [facility] Influenza High Dose 2019-11-08 Completed [facility]ive [facility] of [facility] 00:00:00 [facility] Influenza High Dose 2019-11-08 Completed Unive rsity of 00:00:00 [facility] Influenza High Dose 2019-11-08 Completed [facility]ive [facility] of [facility] 00:00:00 [facility] Influenza High Dose 2019-11-08 Completed Unive rsity of 00:00:00 [facility] Influenza High Dose 2019-11-08 Completed [facility] of [facility] 00:00:00 [facility] Influenza High Dose 2019-11-08 Completed Unive rsity of 00:00:00 [facility] Influenza High Dose 2019-11-08 Completed [facility]ive [facility] of [facility] 00:00:00 [facility] Influenza High Dose 2019-11-08 Completed Unive rsity of 00:00:00 [facility] Influenza High Dose 2019-11-08 Completed [facility]ive [facility] of [facility] 00:00:00 [facility] Influenza High Dose 2019-11-08 Completed Unive rsity of 00:00:00 [facility] Influenza High Dose 2019-11-08 Completed [facility]ive [facility] of [facility] 00:00:00 [facility] Influenza High Dose 2019-11-08 Completed Unive rsity of 00:00:00 [facility] Influenza High Dose 2019-11-08 Completed [facility] of [facility] 00:00:00 [facility] Influenza High Dose 2019-11-08 Completed Unive rsity of 00:00:00 [facility] Influenza High Dose 2019-11-08 Completed [facility]ive [facility] of [facility] 00:00:00 [facility] Influenza High Dose 2019-11-08 Completed Unive rsity of 00:00:00 [facility] Influenza High Dose 2019-11-08 Completed [facility]ive [facility] of [facility] 00:00:00 [facility] Influenza High Dose 2019-11-08 Completed Unive rsity of 00:00:00 [facility] Influenza High Dose 2019-11-08 Completed [facility] of [facility] 00:00:00 [facility] Influenza High Dose 2019-11-08 Completed Unive rsity of 00:00:00 [facility] Influenza High Dose 2019-11-08 Completed [facility] of [facility] 00:00:00 [facility] Influenza High Dose 2019-11-08 Completed Unive rsity of 00:00:00 [facility] Influenza High Dose 2019-11-08 Completed [facility] of [facility] 00:00:00 [facility] Influenza High Dose 2019-11-08 Completed Unive rsity of 00:00:00 [facility] Influenza High Dose 2019-11-08 Completed [facility] of [facility] 00:00:00 [facility] Influenza High Dose 2019-11-08 Completed Unive rsity of 00:00:00 [facility] Influenza High Dose 2019-11-08 Completed [facility]ive [facility] of [facility] 00:00:00 [facility] Influenza High Dose 2019-11-08 Completed Unive rsity of 00:00:00 [facility] Influenza High Dose 2019-11-08 Completed Unive [facility] of [facility] 00:00:00 [facility] Influenza High Dose 2019-11-08 Completed Unive rsity of 00:00:00 [facility] Influenza High Dose 2019-11-08 Completed [facility] of [facility] 00:00:00 [facility] Influenza High Dose 2019-11-08 Completed Unive rsity of 00:00:00 [facility] Influenza High Dose 2019-11-08 Completed [facility]ive [facility] of [facility] 00:00:00 [facility] Influenza High Dose 2019-11-08 Completed Unive rsity of 00:00:00 [facility] Influenza High Dose 2019-11-08 Completed [facility]ive [facility] of [facility] 00:00:00 [facility] Influenza High Dose 2019-11-08 Completed Unive rsity of 00:00:00 [facility] Influenza High Dose 2019-11-08 Completed Unive [facility] of [facility] 00:00:00 [facility] Influenza High Dose 2019-11-08 Completed Unive rsity of 00:00:00 [facility] Influenza High Dose 2019-11-08 Completed [facility] 00:00:00 [facility] Influenza High Dose 2019-11-08 Completed [facility] 00:00:00 [facility] Influenza High Dose 2019-11-08 Completed [facility] 00:00:00 [facility] Influenza High Dose 2019-11-08 Completed [facility] 00:00:00 [facility] Influenza High Dose 2019-11-08 Completed [facility] 00:00:00 [facility] Influenza High Dose 2019-11-08 Completed [facility] 00:00:00 [facility] Influenza High Dose 2019-11-08 Completed [facility] 00:00:00 [facility] Influenza High Dose 2019-11-08 Completed [facility] of 00:00:00 [facility] Influenza High Dose 2019-11-08 Completed [facility] 00:00:00 [facility] Influenza High Dose 2019-11-08 Completed [facility] 00:00:00 [facility] Influenza High Dose 2019-11-08 Completed [facility] 00:00:00 [facility] Influenza High Dose 2019-11-08 Completed [facility] of 00:00:00 [facility] Influenza High Dose 2019-11-08 Completed [facility] 00:00:00 [facility] Influenza High Dose 2019-11-08 Completed [facility] of 00:00:00 [facility] Influenza High Dose 2019-11-08 Completed [facility] 00:00:00 [facility] Influenza High Dose 2019-11-08 Completed [facility] 00:00:00 [facility] Influenza High Dose 2019-11-08 Completed [facility] 00:00:00 [facility] Influenza High Dose 2019-11-08 Completed [facility] 00:00:00 [facility] Influenza High Dose 2019-11-08 Completed [facility] 00:00:00 [facility] Influenza High Dose 2019-11-08 Completed [facility] 00:00:00 [facility] Influenza High Dose 2019-11-08 Completed [facility] 00:00:00 [facility] Influenza High Dose 2019-11-08 Completed [facility] 00:00:00 [facility] Influenza High Dose 2019-11-08 Completed [facility] 00:00:00 [facility] Influenza High Dose 2019-11-08 Completed [facility] 00:00:00 [facility] Influenza High Dose 2019-11-08 Completed [facility] 00:00:00 [facility] Influenza High Dose 2019-11-08 Completed [facility] 00:00:00 [facility] Influenza High Dose 2019-11-08 Completed [facility] 00:00:00 [facility] Influenza High Dose 2019-11-08 Completed [facility] 00:00:00 [facility] Influenza High Dose 2019-11-08 Completed [facility] 00:00:00 [facility] Influenza High Dose 2019-11-08 Completed [facility] of 00:00:00 [facility] Influenza High Dose 2019-11-08 Completed [facility] 00:00:00 [facility] Influenza High Dose 2019-11-08 Completed [facility] of 00:00:00 [facility] Influenza High Dose 2019-11-08 Completed [facility] 00:00:00 [facility] Influenza High Dose 2019-11-08 Completed [facility] of 00:00:00 [facility] Influenza High Dose 2019-11-08 Completed [facility] 00:00:00 [facility] Influenza High Dose 2019-11-08 Completed [facility] 00:00:00 [facility] Influenza High Dose 2019-11-08 Completed [facility] 00:00:00 [facility] Influenza High Dose 2019-11-08 Completed [facility] of 00:00:00 [facility] Influenza High Dose 2019-11-08 Completed [facility] 00:00:00 [facility] Influenza High Dose 2019-11-08 Completed [facility] of 00:00:00 [facility] Influenza High Dose 2019-11-08 Completed [facility] 00:00:00 [facility] Influenza High Dose 2019-11-08 Completed [facility] 00:00:00 [facility] Influenza High Dose 2019-11-08 Completed [facility] 00:00:00 [facility] Influenza High Dose 2019-11-08 Completed [facility] 00:00:00 [facility] Influenza High Dose 2019-11-08 Completed [facility] 00:00:00 [facility] Influenza High Dose 2019-11-08 Completed [facility] of 00:00:00 [facility] Influenza High Dose 2019-11-08 Completed [facility] 00:00:00 [facility] Influenza High Dose 2019-11-08 Completed [facility] of 00:00:00 [facility] Influenza High Dose 2019-11-08 Completed [facility] 00:00:00 [facility] Influenza High Dose 2019-11-08 Completed [facility] of 00:00:00 [facility] Influenza High Dose 2019-11-08 Completed [facility] 00:00:00 [facility] Influenza High Dose 2019-11-08 Completed [facility] of 00:00:00 [facility] Influenza High Dose 2019-11-08 Completed [facility] 00:00:00 [facility] Influenza High Dose 2019-11-08 Completed [facility] of 00:00:00 [facility] Influenza High Dose 2019-11-08 Completed [facility] 00:00:00 [facility] Influenza High Dose 2019-11-08 Completed [facility] of 00:00:00 [facility] Influenza High Dose 2019-11-08 Completed [facility] 00:00:00 [facility] Influenza High Dose 2019-11-08 Completed [facility] of 00:00:00 [facility] Influenza High Dose 2019-11-08 Completed [facility] 00:00:00 [facility] Influenza High Dose 2019-11-08 Completed [facility] of 00:00:00 [facility] Influenza High Dose 2019-11-08 Completed [facility] 00:00:00 [facility] Influenza High Dose 2019-11-08 Completed [facility] of 00:00:00 [facility] Influenza High Dose 2019-11-08 Completed [facility] 00:00:00 [facility] Influenza High Dose 2019-11-08 Completed [facility] of 00:00:00 [facility] Influenza High Dose 2019-11-08 Completed [facility] 00:00:00 [facility] Influenza High Dose 2019-11-08 Completed [facility] of 00:00:00 [facility] Influenza High Dose 2019-11-08 Completed [facility] 00:00:00 [facility] Influenza High Dose 2019-11-08 Completed [facility] of 00:00:00 [facility] Influenza High Dose 2019-11-08 Completed [facility] 00:00:00 [facility] Influenza High Dose 2019-11-08 Completed [facility] of 00:00:00 [facility] Influenza High Dose 2019-11-08 Completed [facility] 00:00:00 [facility] Influenza High Dose 2019-11-08 Completed [facility] of 00:00:00 [facility] Influenza High Dose 2019-11-08 Completed [facility] 00:00:00 [facility] Influenza High Dose 2019-11-08 Completed [facility] of 00:00:00 [facility] Influenza High Dose 2019-11-08 Completed [facility] 00:00:00 [facility] Influenza High Dose 2019-11-08 Completed [facility] of 00:00:00 [facility] Influenza High Dose 2019-11-08 Completed [facility] 00:00:00 [facility] Influenza High Dose 2019-11-08 Completed [facility] of 00:00:00 [facility] Influenza High Dose 2019-11-08 Completed [facility] 00:00:00 [facility] Influenza High Dose 2019-11-08 Completed [facility] of 00:00:00 [facility] Influenza High Dose 2019-11-08 Completed [facility] 00:00:00 [facility] Influenza High Dose 2019-11-08 Completed [facility] of 00:00:00 [facility] Influenza High Dose 2019-11-08 Completed [facility] 00:00:00 [facility] Influenza High Dose 2019-11-08 Completed [facility] of 00:00:00 [facility] Influenza High Dose 2019-11-08 Completed [facility] 00:00:00 [facility] Influenza High Dose 2019-11-08 Completed [facility] of 00:00:00 [facility] Influenza High Dose 2019-11-08 Completed [facility] 00:00:00 [facility] Influenza High Dose 2019-11-08 Completed [facility] of 00:00:00 [facility] Influenza High Dose 2019-11-08 Completed [facility] 00:00:00 [facility] Influenza High Dose 2019-11-08 Completed [facility] of 00:00:00 [facility] Influenza High Dose 2019-11-08 Completed [facility] 00:00:00 [facility] Influenza High Dose 2019-11-08 Completed [facility] of 00:00:00 [facility] Influenza High Dose 2019-11-08 Completed [facility] 00:00:00 [facility] Influenza High Dose 2019-11-08 Completed [facility] of 00:00:00 [facility] Influenza High Dose 2019-11-08 Completed [facility] 00:00:00 [facility] Influenza High Dose 2019-11-08 Completed [facility] of 00:00:00 [facility] Influenza High Dose 2019-11-08 Completed [facility] 00:00:00 [facility] Influenza High Dose 2019-11-08 Completed [facility] of 00:00:00 [facility] Influenza High Dose 2019-11-08 Completed [facility] 00:00:00 [facility] Influenza High Dose 2019-11-08 Completed [facility] of 00:00:00 [facility] Influenza High Dose 2019-11-08 Completed [facility] 00:00:00 [facility] Influenza High Dose 2019-11-08 Completed [facility] of 00:00:00 [facility] Influenza High Dose 2019-11-08 Completed [facility] 00:00:00 [facility] Influenza High Dose 2019-11-08 Completed [facility] of 00:00:00 [facility] Influenza High Dose 2019-11-08 Completed [facility] 00:00:00 [facility] Influenza High Dose 2019-11-08 Completed [facility] of 00:00:00 [facility] Influenza High Dose 2019-11-08 Completed [facility] 00:00:00 [facility] Influenza High Dose 2019-11-08 Completed [facility] of 00:00:00 [facility] Influenza High Dose 2019-11-08 Completed [facility] 00:00:00 [facility] Influenza High Dose 2019-11-08 Completed [facility] of 00:00:00 [facility] Influenza High Dose 2019-11-08 Completed [facility] 00:00:00 [facility] Influenza High Dose 2019-11-08 Completed [facility] of 00:00:00 [facility] Influenza High Dose 2019-11-08 Completed [facility] 00:00:00 [facility] Influenza High Dose 2019-11-08 Completed [facility] of 00:00:00 [facility] Influenza High Dose 2019-11-08 Completed [facility] 00:00:00 [facility] Influenza High Dose 2019-11-08 Completed [facility] of 00:00:00 [facility] Influenza High Dose 2019-11-08 Completed [facility] 00:00:00 [facility] Influenza High Dose 2019-11-08 Completed [facility] of 00:00:00 [facility] Influenza High Dose 2019-11-08 Completed [facility] 00:00:00 [facility] Influenza High Dose 2019-11-08 Completed [facility] of 00:00:00 [facility] Influenza High Dose 2019-11-08 Completed [facility] 00:00:00 [facility] Influenza High Dose 2019-11-08 Completed [facility] of 00:00:00 [facility] Influenza High Dose 2019-11-08 Completed [facility] 00:00:00 [facility] Influenza High Dose 2019-11-08 Completed [facility] of 00:00:00 [facility] Influenza High Dose 2019-11-08 Completed [facility] 00:00:00 [facility] Influenza High Dose 2019-11-08 Completed [facility] of 00:00:00 [facility] Influenza High Dose 2019-11-08 Completed [facility] 00:00:00 [facility] Influenza High Dose 2019-11-08 Completed [facility] of 00:00:00 [facility] Influenza High Dose 2019-11-08 Completed [facility] 00:00:00 [facility] Influenza High Dose 2019-11-08 Completed [facility] of 00:00:00 [facility] Influenza High Dose 2019-11-08 Completed [facility] 00:00:00 [facility] Influenza High Dose 2019-11-08 Completed [facility] of 00:00:00 [facility] Influenza High Dose 2019-11-08 Completed [facility] 00:00:00 [facility] Influenza High Dose 2019-11-08 Completed [facility] of 00:00:00 [facility] Influenza High Dose 2019-11-08 Completed [facility] 00:00:00 [facility] Influenza High Dose 2019-11-08 Completed [facility] of 00:00:00 [facility] Influenza High Dose 2019-11-08 Completed [facility] 00:00:00 [facility] Influenza High Dose 2019-11-08 Completed [facility] of 00:00:00 [facility] Influenza High Dose 2019-11-08 Completed [facility] 00:00:00 [facility] Influenza High Dose 2019-11-08 Completed [facility] of 00:00:00 [facility] Influenza High Dose 2019-11-08 Completed [facility] 00:00:00 [facility] Influenza High Dose 2019-11-08 Completed [facility] of 00:00:00 [facility] Influenza High Dose 2019-11-08 Completed [facility] 00:00:00 [facility] Influenza High Dose 2019-11-08 Completed [facility] of 00:00:00 [facility] Influenza High Dose 2019-11-08 Completed [facility] 00:00:00 [facility] Influenza High Dose 2019-11-08 Completed [facility] of 00:00:00 [facility] Influenza High Dose 2019-11-08 Completed [facility] 00:00:00 [facility] Influenza High Dose 2019-11-08 Completed [facility] of 00:00:00 [facility] Influenza High Dose 2019-02-13 Completed [facility] of 00:00:00 [facility] Influenza High Dose 2019-02-13 Completed [facility] of 00:00:00 [facility] Influenza High Dose 2019-02-13 Completed [facility] of 00:00:00 [facility] Influenza High Dose 2019-02-13 Completed [facility] of 00:00:00 [facility] Influenza High Dose 2019-02-13 Completed [facility] of 00:00:00 [facility] Influenza High Dose 2019-02-13 Completed [facility] of 00:00:00 [facility] Influenza High Dose 2019-02-13 Completed [facility] of 00:00:00 [facility] Influenza High Dose 2019-02-13 Completed [facility] of 00:00:00 [facility] Influenza High Dose 2019-02-13 Completed [facility] of 00:00:00 [facility] Influenza High Dose 2019-02-13 Completed [facility] of 00:00:00 [facility] Influenza High Dose 2019-02-13 Completed [facility] of 00:00:00 [facility] Influenza High Dose 2019-02-13 Completed [facility] of 00:00:00 [facility] Influenza High Dose 2019-02-13 Completed [facility] of 00:00:00 [facility] Influenza High Dose 2019-02-13 Completed [facility] of 00:00:00 [facility] Influenza High Dose 2019-02-13 Completed [facility] of 00:00:00 [facility] Influenza High Dose 2019-02-13 Completed [facility] of 00:00:00 [facility] Influenza High Dose 2019-02-13 Completed [facility] of 00:00:00 [facility] Influenza High Dose 2019-02-13 Completed [facility] of 00:00:00 [facility] Influenza High Dose 2019-02-13 Completed [facility] of 00:00:00 [facility] Influenza High Dose 2019-02-13 Completed [facility] of 00:00:00 [facility] Influenza High Dose 2019-02-13 Completed [facility] of 00:00:00 [facility] Influenza High Dose 2019-02-13 Completed [facility] of 00:00:00 [facility] Influenza High Dose 2019-02-13 Completed [facility] of 00:00:00 [facility] Influenza High Dose 2019-02-13 Completed [facility] of 00:00:00 [facility] Influenza High Dose 2019-02-13 Completed [facility] of 00:00:00 [facility] Influenza High Dose 2019-02-13 Completed [facility] of 00:00:00 [facility] Influenza High Dose 2019-02-13 Completed [facility] of 00:00:00 [facility] Influenza High Dose 2019-02-13 Completed [facility] of 00:00:00 [facility] Influenza High Dose 2019-02-13 Completed [facility] of 00:00:00 [facility] Influenza High Dose 2019-02-13 Completed [facility] of 00:00:00 [facility] Influenza High Dose 2019-02-13 Completed [facility] of 00:00:00 [facility] Influenza High Dose 2019-02-13 Completed [facility] of 00:00:00 [facility] Influenza High Dose 2019-02-13 Completed [facility] of 00:00:00 [facility] Influenza High Dose 2019-02-13 Completed [facility] of 00:00:00 [facility] Influenza High Dose 2019-02-13 Completed [facility] of 00:00:00 [facility] Influenza High Dose 2019-02-13 Completed [facility] of 00:00:00 [facility] Influenza High Dose 2019-02-13 Completed [facility] of 00:00:00 [facility] Influenza High Dose 2019-02-13 Completed [facility] of 00:00:00 [facility] Influenza High Dose 2019-02-13 Completed [facility] of 00:00:00 [facility] Influenza High Dose 2019-02-13 Completed [facility] of 00:00:00 [facility] Influenza High Dose 2019-02-13 Completed [facility] of 00:00:00 [facility] Influenza High Dose 2019-02-13 Completed [facility] of 00:00:00 [facility] Influenza High Dose 2019-02-13 Completed [facility] of 00:00:00 [facility] Influenza High Dose 2019-02-13 Completed [facility] of 00:00:00 [facility] Influenza High Dose 2019-02-13 Completed [facility] of 00:00:00 [facility] Influenza High Dose 2019-02-13 Completed [facility] of 00:00:00 [facility] Influenza High Dose 2019-02-13 Completed [facility] of 00:00:00 [facility] Influenza High Dose 2019-02-13 Completed [facility] of 00:00:00 [facility] Influenza High Dose 2019-02-13 Completed [facility] of 00:00:00 [facility] Influenza High Dose 2019-02-13 Completed [facility] of 00:00:00 [facility] Influenza High Dose 2019-02-13 Completed [facility] of 00:00:00 [facility] Influenza High Dose 2019-02-13 Completed [facility] of 00:00:00 [facility] Influenza High Dose 2019-02-13 Completed [facility] of 00:00:00 [facility] Influenza High Dose 2019-02-13 Completed [facility] of 00:00:00 [facility] Influenza High Dose 2019-02-13 Completed [facility] of 00:00:00 [facility] Influenza High Dose 2019-02-13 Completed [facility] of 00:00:00 [facility] Influenza High Dose 2019-02-13 Completed [facility] of 00:00:00 [facility] Influenza High Dose 2019-02-13 Completed [facility] of 00:00:00 [facility] Influenza High Dose 2019-02-13 Completed [facility] of 00:00:00 [facility] Influenza High Dose 2019-02-13 Completed [facility] of 00:00:00 [facility] Influenza High Dose 2019-02-13 Completed [facility] of 00:00:00 [facility] Influenza High Dose 2019-02-13 Completed [facility] of 00:00:00 [facility] Influenza High Dose 2019-02-13 Completed [facility] of 00:00:00 [facility] Influenza High Dose 2019-02-13 Completed [facility] of 00:00:00 [facility] Influenza High Dose 2019-02-13 Completed [facility] of 00:00:00 [facility] Influenza High Dose 2019-02-13 Completed [facility] of 00:00:00 [facility] Influenza High Dose 2019-02-13 Completed [facility] of 00:00:00 [facility] Influenza High Dose 2019-02-13 Completed [facility] of 00:00:00 [facility] Influenza High Dose 2019-02-13 Completed [facility] of 00:00:00 [facility] Influenza High Dose 2019-02-13 Completed [facility] of 00:00:00 [facility] Influenza High Dose 2019-02-13 Completed [facility] of 00:00:00 [facility] Influenza High Dose 2019-02-13 Completed [facility] of 00:00:00 [facility] Influenza High Dose 2019-02-13 Completed [facility] of 00:00:00 [facility] Influenza High Dose 2019-02-13 Completed [facility] of 00:00:00 [facility] Influenza High Dose 2019-02-13 Completed Unive [facility] of 00:00:00 [facility] Influenza High Dose 2019-02-13 Completed [facility] 00:00:00 [facility] Influenza High Dose 2019-02-13 Completed [facility] 00:00:00 [facility] Influenza High Dose 2019-02-13 Completed [facility] 00:00:00 [facility] Influenza High Dose 2019-02-13 Completed [facility] 00:00:00 [facility] Influenza High Dose 2019-02-13 Completed [facility] 00:00:00 [facility] Influenza High Dose 2019-02-13 Completed [facility] 00:00:00 [facility] Influenza High Dose 2019-02-13 Completed [facility] 00:00:00 [facility] Influenza High Dose 2019-02-13 Completed [facility] 00:00:00 [facility] Influenza High Dose 2019-02-13 Completed [facility] 00:00:00 [facility] Influenza High Dose 2019-02-13 Completed [facility] 00:00:00 [facility] Influenza High Dose 2019-02-13 Completed [facility] 00:00:00 [facility] Influenza High Dose 2019-02-13 Completed [facility] 00:00:00 [facility] Influenza High Dose 2019-02-13 Completed [facility] 00:00:00 [facility] Influenza High Dose 2019-02-13 Completed [facility] 00:00:00 [facility] Influenza High Dose 2019-02-13 Completed [facility] 00:00:00 [facility] Influenza High Dose 2019-02-13 Completed [facility] 00:00:00 [facility] Influenza High Dose 2019-02-13 Completed [facility] 00:00:00 [facility] Influenza High Dose 2019-02-13 Completed [facility] 00:00:00 [facility] Influenza High Dose 2019-02-13 Completed [facility] 00:00:00 [facility] Influenza High Dose 2019-02-13 Completed [facility] 00:00:00 [facility] Influenza High Dose 2019-02-13 Completed [facility] 00:00:00 [facility] Influenza High Dose 2019-02-13 Completed [facility] 00:00:00 [facility] Influenza High Dose 2019-02-13 Completed [facility] 00:00:00 [facility] Influenza High Dose 2019-02-13 Completed [facility] 00:00:00 [facility] Influenza High Dose 2019-02-13 Completed [facility] 00:00:00 [facility] Influenza High Dose 2019-02-13 Completed [facility] 00:00:00 [facility] Influenza High Dose 2019-02-13 Completed [facility] 00:00:00 [facility] Influenza High Dose 2019-02-13 Completed [facility] 00:00:00 [facility] Influenza High Dose 2019-02-13 Completed [facility] 00:00:00 [facility] Influenza High Dose 2019-02-13 Completed [facility] 00:00:00 [facility] Influenza High Dose 2019-02-13 Completed [facility] 00:00:00 [facility] Influenza High Dose 2019-02-13 Completed [facility] 00:00:00 [facility] Influenza High Dose 2019-02-13 Completed [facility] 00:00:00 [facility] Influenza High Dose 2019-02-13 Completed [facility] 00:00:00 [facility] Influenza High Dose 2019-02-13 Completed [facility] 00:00:00 [facility] Influenza High Dose 2019-02-13 Completed [facility] 00:00:00 [facility] Influenza High Dose 2019-02-13 Completed [facility] 00:00:00 [facility] Influenza High Dose 2019-02-13 Completed [facility] 00:00:00 [facility] Influenza High Dose 2019-02-13 Completed [facility] 00:00:00 [facility] Influenza High Dose 2019-02-13 Completed [facility] 00:00:00 [facility] Influenza High Dose 2019-02-13 Completed [facility] 00:00:00 [facility] Influenza High Dose 2019-02-13 Completed [facility] 00:00:00 [facility] TDAP 2017-11-10 Completed [facility] 00:00:00 [facility] TDAP 2017-11-10 Completed [facility] 00:00:00 [facility] TDAP 2017-11-10 Completed [facility] 00:00:00 [facility] TDAP 2017-11-10 Completed [facility] 00:00:00 [facility] TDAP 2017-11-10 Completed [facility] 00:00:00 [facility] TDAP 2017-11-10 Completed [facility] 00:00:00 [facility] TDAP 2017-11-10 Completed [facility] 00:00:00 [facility] TDAP 2017-11-10 Completed [facility] 00:00:00 [facility] TDAP 2017-11-10 Completed [facility] 00:00:00 [facility] TDAP 2017-11-10 Completed [facility] 00:00:00 [facility] TDAP 2017-11-10 Completed [facility] 00:00:00 [facility] TDAP 2017-11-10 Completed [facility] 00:00:00 [facility] TDAP 2017-11-10 Completed [facility] 00:00:00 [facility] TDAP 2017-11-10 Completed [facility] 00:00:00 [facility] TDAP 2017-11-10 Completed [facility] 00:00:00 [facility] TDAP 2017-11-10 Completed [facility] 00:00:00 [facility] TDAP 2017-11-10 Completed [facility] 00:00:00 [facility] TDAP 2017-11-10 Completed [facility] 00:00:00 [facility] TDAP 2017-11-10 Completed [facility] 00:00:00 [facility] TDAP 2017-11-10 Completed [facility] 00:00:00 [facility] TDAP 2017-11-10 Completed [facility] 00:00:00 [facility] TDAP 2017-11-10 Completed [facility] 00:00:00 [facility] TDAP 2017-11-10 Completed [facility] 00:00:00 [facility] TDAP 2017-11-10 Completed [facility] 00:00:00 [facility] TDAP 2017-11-10 Completed [facility] 00:00:00 [facility] TDAP 2017-11-10 Completed [facility] 00:00:00 [facility] TDAP 2017-11-10 Completed [facility] 00:00:00 [facility] TDAP 2017-11-10 Completed [facility] 00:00:00 [facility] TDAP 2017-11-10 Completed [facility] 00:00:00 [facility] TDAP 2017-11-10 Completed [facility] 00:00:00 [facility] TDAP 2017-11-10 Completed [facility] 00:00:00 [facility] TDAP 2017-11-10 Completed [facility] 00:00:00 [facility] TDAP 2017-11-10 Completed [facility] 00:00:00 [facility] TDAP 2017-11-10 Completed [facility] 00:00:00 [facility] TDAP 2017-11-10 Completed [facility] 00:00:00 [facility] TDAP 2017-11-10 Completed [facility] 00:00:00 [facility] TDAP 2017-11-10 Completed [facility] 00:00:00 [facility] TDAP 2017-11-10 Completed [facility] 00:00:00 [facility] TDAP 2017-11-10 Completed [facility] 00:00:00 [facility] TDAP 2017-11-10 Completed [facility] 00:00:00 [facility] TDAP 2017-11-10 Completed [facility] 00:00:00 [facility] TDAP 2017-11-10 Completed [facility] 00:00:00 [facility] TDAP 2017-11-10 Completed [facility] 00:00:00 [facility] TDAP 2017-11-10 Completed [facility] 00:00:00 [facility] TDAP 2017-11-10 Completed [facility] 00:00:00 [facility] TDAP 2017-11-10 Completed [facility] 00:00:00 [facility] TDAP 2017-11-10 Completed [facility] 00:00:00 [facility] TDAP 2017-11-10 Completed [facility] 00:00:00 [facility] TDAP 2017-11-10 Completed [facility] 00:00:00 [facility] TDAP 2017-11-10 Completed [facility] 00:00:00 [facility] TDAP 2017-11-10 Completed [facility] 00:00:00 [facility] TDAP 2017-11-10 Completed [facility] 00:00:00 [facility] TDAP 2017-11-10 Completed [facility] 00:00:00 [facility] TDAP 2017-11-10 Completed [facility] 00:00:00 [facility] TDAP 2017-11-10 Completed [facility] 00:00:00 [facility] TDAP 2017-11-10 Completed [facility] 00:00:00 [facility] TDAP 2017-11-10 Completed [facility] 00:00:00 [facility] TDAP 2017-11-10 Completed [facility] 00:00:00 [facility] TDAP 2017-11-10 Completed [facility] 00:00:00 [facility] TDAP 2017-11-10 Completed [facility] 00:00:00 [facility] TDAP 2017-11-10 Completed [facility] 00:00:00 [facility] TDAP 2017-11-10 Completed [facility] 00:00:00 [facility] TDAP 2017-11-10 Completed [facility] 00:00:00 [facility] TDAP 2017-11-10 Completed [facility] 00:00:00 [facility] TDAP 2017-11-10 Completed [facility] 00:00:00 [facility] TDAP 2017-11-10 Completed [facility] 00:00:00 [facility] TDAP 2017-11-10 Completed [facility] 00:00:00 [facility] TDAP 2017-11-10 Completed [facility] 00:00:00 [facility] TDAP 2017-11-10 Completed [facility] 00:00:00 [facility] TDAP 2017-11-10 Completed [facility] 00:00:00 [facility] TDAP 2017-11-10 Completed [facility] 00:00:00 [facility] TDAP 2017-11-10 Completed [facility] 00:00:00 [facility] TDAP 2017-11-10 Completed [facility] 00:00:00 [facility] TDAP 2017-11-10 Completed [facility] 00:00:00 [facility] TDAP 2017-11-10 Completed [facility] 00:00:00 [facility] TDAP 2017-11-10 Completed [facility] 00:00:00 [facility] TDAP 2017-11-10 Completed [facility] 00:00:00 [facility] TDAP 2017-11-10 Completed [facility] 00:00:00 [facility] TDAP 2017-11-10 Completed [facility] 00:00:00 [facility] TDAP 2017-11-10 Completed [facility] 00:00:00 [facility] TDAP 2017-11-10 Completed [facility] 00:00:00 [facility] TDAP 2017-11-10 Completed [facility] 00:00:00 [facility] TDAP 2017-11-10 Completed [facility] 00:00:00 [facility] TDAP 2017-11-10 Completed [facility] 00:00:00 [facility] TDAP 2017-11-10 Completed [facility] 00:00:00 [facility] TDAP 2017-11-10 Completed [facility] 00:00:00 [facility] TDAP 2017-11-10 Completed [facility] 00:00:00 [facility] TDAP 2017-11-10 Completed [facility] 00:00:00 [facility] TDAP 2017-11-10 Completed [facility] 00:00:00 [facility] TDAP 2017-11-10 Completed [facility] 00:00:00 [facility] TDAP 2017-11-10 Completed [facility] 00:00:00 [facility] TDAP 2017-11-10 Completed [facility] 00:00:00 [facility] TDAP 2017-11-10 Completed [facility] 00:00:00 [facility] TDAP 2017-11-10 Completed [facility] 00:00:00 [facility] TDAP 2017-11-10 Completed [facility] 00:00:00 [facility] TDAP 2017-11-10 Completed [facility] 00:00:00 [facility] TDAP 2017-11-10 Completed [facility] 00:00:00 [facility] TDAP 2017-11-10 Completed [facility] 00:00:00 [facility] TDAP 2017-11-10 Completed [facility] 00:00:00 [facility] TDAP 2017-11-10 Completed [facility] 00:00:00 [facility] TDAP 2017-11-10 Completed [facility] 00:00:00 [facility] TDAP 2017-11-10 Completed [facility] 00:00:00 [facility] TDAP 2017-11-10 Completed [facility] 00:00:00 [facility] TDAP 2017-11-10 Completed [facility] 00:00:00 [facility] TDAP 2017-11-10 Completed [facility] 00:00:00 [facility] TDAP 2017-11-10 Completed [facility] 00:00:00 [facility] TDAP 2017-11-10 Completed [facility] 00:00:00 [facility] TDAP 2017-11-10 Completed [facility] 00:00:00 [facility] TDAP 2017-11-10 Completed [facility] 00:00:00 [facility] TDAP 2017-11-10 Completed [facility] 00:00:00 [facility] TDAP 2017-11-10 Completed [facility] 00:00:00 [facility] TDAP 2017-11-10 Completed [facility] 00:00:00 [facility] TDAP 2017-11-10 Completed [facility] 00:00:00 [facility] TDAP 2017-11-10 Completed [facility] 00:00:00 [facility] TDAP 2017-11-10 Completed [facility] 00:00:00 [facility] TDAP 2017-11-10 Completed [facility] 00:00:00 [facility] TDAP 2017-11-10 Completed [facility] 00:00:00 [facility] Pneumococcal 2017-06-09 Completed University o f Polysaccharide, [...] Dose 2016-11-14 Completed [facility] 00:00:00 [facility] Influenza High Dose 2016-11-14 Completed [facility] 00:00:00 [facility] Influenza High Dose 2016-11-14 Completed [facility] 00:00:00 [facility] Influenza High Dose 2016-11-14 Completed [facility] 00:00:00 [facility] Influenza High Dose 2016-11-14 Completed [facility] 00:00:00 [facility] Influenza High Dose 2016-11-14 Completed [facility] 00:00:00 [facility] Influenza High Dose 2016-11-14 Completed [facility] 00:00:00 [facility] Influenza High Dose 2016-11-14 Completed [facility] 00:00:00 [facility] Influenza High Dose 2016-11-14 Completed [facility] of 00:00:00 [facility] Influenza High Dose 2016-11-14 Completed [facility] 00:00:00 [facility] Influenza High Dose 2016-11-14 Completed [facility] 00:00:00 [facility] Influenza High Dose 2016-11-14 Completed [facility] of 00:00:00 [facility] Influenza High Dose 2016-11-14 Completed [facility] of 00:00:00 [facility] Influenza High Dose 2016-11-14 Completed [facility] 00:00:00 [facility] Influenza High Dose 2016-11-14 Completed [facility] 00:00:00 [facility] Influenza High Dose 2016-11-14 Completed [facility] of 00:00:00 [facility] Influenza High Dose 2016-11-14 Completed [facility] of 00:00:00 [facility] Influenza High Dose 2016-11-14 Completed [facility] of 00:00:00 [facility] Influenza High Dose 2016-11-14 Completed [facility] of 00:00:00 [facility] Influenza High Dose 2016-11-14 Completed [facility] 00:00:00 [facility] Influenza High Dose 2016-11-14 Completed [facility] 00:00:00 [facility] Influenza High Dose 2016-11-14 Completed [facility] of 00:00:00 [facility] Influenza High Dose 2016-11-14 Completed [facility] of 00:00:00 [facility] Influenza High Dose 2016-11-14 Completed [facility] of 00:00:00 [facility] Influenza High Dose 2016-11-14 Completed [facility] of 00:00:00 [facility] Influenza High Dose 2016-11-14 Completed [facility] of 00:00:00 [facility] Influenza High Dose 2016-11-14 Completed [facility] 00:00:00 [facility] Influenza High Dose 2016-11-14 Completed [facility] of 00:00:00 [facility] Influenza High Dose 2016-11-14 Completed [facility] 00:00:00 [facility] Influenza High Dose 2016-11-14 Completed [facility] 00:00:00 [facility] Influenza High Dose 2016-11-14 Completed [facility] 00:00:00 [facility] Influenza High Dose 2016-11-14 Completed [facility] 00:00:00 [facility] Influenza High Dose 2016-11-14 Completed [facility] 00:00:00 [facility] Influenza High Dose 2016-11-14 Completed [facility] 00:00:00 [facility] Influenza High Dose 2016-11-14 Completed [facility] 00:00:00 [facility] Influenza High Dose 2016-11-14 Completed [facility] 00:00:00 [facility] Influenza High Dose 2016-11-14 Completed [facility] 00:00:00 [facility] Influenza High Dose 2016-11-14 Completed [facility] 00:00:00 [facility] Influenza High Dose 2016-11-14 Completed [facility] 00:00:00 [facility] Influenza High Dose 2016-11-14 Completed [facility] 00:00:00 [facility] Influenza High Dose 2016-11-14 Completed [facility] 00:00:00 [facility] Influenza High Dose 2016-11-14 Completed [facility] 00:00:00 [facility] Influenza High Dose 2016-11-14 Completed [facility] 00:00:00 [facility] Influenza High Dose 2016-11-14 Completed [facility] 00:00:00 [facility] Influenza High Dose 2016-11-14 Completed [facility] 00:00:00 [facility] Influenza High Dose 2016-11-14 Completed [facility] 00:00:00 [facility] Influenza High Dose 2016-11-14 Completed [facility] 00:00:00 [facility] Influenza High Dose 2016-11-14 Completed [facility] 00:00:00 [facility] Influenza High Dose 2016-11-14 Completed [facility] 00:00:00 [facility] Influenza High Dose 2016-11-14 Completed [facility] 00:00:00 [facility] Influenza High Dose 2016-11-14 Completed [facility] 00:00:00 [facility] Influenza High Dose 2016-11-14 Completed [facility] 00:00:00 [facility] Influenza High Dose 2016-11-14 Completed [facility] 00:00:00 [facility] Influenza High Dose 2016-11-14 Completed [facility] 00:00:00 [facility] Influenza High Dose 2016-11-14 Completed [facility] 00:00:00 [facility] Influenza High Dose 2016-11-14 Completed [facility] 00:00:00 [facility] Influenza High Dose 2016-11-14 Completed [facility] 00:00:00 [facility] Influenza High Dose 2016-11-14 Completed [facility] 00:00:00 [facility] Influenza High Dose 2016-11-14 Completed [facility] 00:00:00 [facility] Influenza High Dose 2016-11-14 Completed [facility] 00:00:00 [facility] Influenza High Dose 2016-11-14 Completed [facility] 00:00:00 [facility] Influenza High Dose 2016-11-14 Completed [facility] 00:00:00 [facility] Influenza High Dose 2016-11-14 Completed [facility] 00:00:00 [facility] Influenza High Dose 2016-11-14 Completed [facility] 00:00:00 [facility] Influenza High Dose 2016-11-14 Completed [facility] 00:00:00 [facility] Influenza High Dose 2016-11-14 Completed [facility] 00:00:00 [facility] Influenza High Dose 2016-11-14 Completed [facility] 00:00:00 [facility] Influenza High Dose 2016-11-14 Completed [facility] 00:00:00 [facility] Influenza High Dose 2016-11-14 Completed [facility] 00:00:00 [facility] Influenza High Dose 2016-11-14 Completed [facility] 00:00:00 [facility] Influenza High Dose 2016-11-14 Completed [facility] 00:00:00 [facility] Influenza High Dose 2016-11-14 Completed [facility] 00:00:00 [facility] Influenza High Dose 2016-11-14 Completed [facility] 00:00:00 [facility] Influenza High Dose 2016-11-14 Completed [facility] 00:00:00 [facility] Influenza High Dose 2016-11-14 Completed [facility] 00:00:00 [facility] Influenza High Dose 2016-11-14 Completed [facility] 00:00:00 [facility] Influenza High Dose 2016-11-14 Completed [facility] 00:00:00 [facility] Influenza High Dose 2016-11-14 Completed [facility] 00:00:00 [facility] Influenza High Dose 2016-11-14 Completed [facility] 00:00:00 [facility] Influenza High Dose 2016-11-14 Completed [facility] 00:00:00 [facility] Influenza High Dose 2016-11-14 Completed [facility] 00:00:00 [facility] Influenza High Dose 2016-11-14 Completed [facility] 00:00:00 [facility] Influenza High Dose 2016-11-14 Completed [facility] 00:00:00 [facility] Influenza High Dose 2016-11-14 Completed [facility] 00:00:00 [facility] Influenza High Dose 2016-11-14 Completed [facility] 00:00:00 [facility] Influenza High Dose 2016-11-14 Completed [facility] 00:00:00 [facility] Influenza High Dose 2016-11-14 Completed [facility] 00:00:00 [facility] Influenza High Dose 2016-11-14 Completed [facility] 00:00:00 [facility] Influenza High Dose 2016-11-14 Completed [facility] 00:00:00 [facility] Influenza High Dose 2016-11-14 Completed [facility] 00:00:00 [facility] Influenza High Dose 2016-11-14 Completed [facility] 00:00:00 [facility] Influenza High Dose 2016-11-14 Completed [facility] 00:00:00 [facility] Influenza High Dose 2016-11-14 Completed [facility] 00:00:00 [facility] Influenza High Dose 2016-11-14 Completed [facility] 00:00:00 [facility] Influenza High Dose 2016-11-14 Completed [facility] 00:00:00 [facility] Influenza High Dose 2016-11-14 Completed [facility] 00:00:00 [facility] Influenza High Dose 2016-11-14 Completed [facility] 00:00:00 [facility] Influenza High Dose 2016-11-14 Completed [facility] 00:00:00 [facility] Influenza High Dose 2016-11-14 Completed [facility] 00:00:00 [facility] Influenza High Dose 2016-11-14 Completed [facility] 00:00:00 [facility] Influenza High Dose 2016-11-14 Completed [facility] 00:00:00 [facility] Influenza High Dose 2016-11-14 Completed [facility] 00:00:00 [facility] Influenza High Dose 2016-11-14 Completed [facility] of 00:00:00 [facility] Influenza High Dose 2016-11-14 Completed [facility] of 00:00:00 [facility] Influenza High Dose 2016-11-14 Completed [facility] of 00:00:00 [facility] Influenza High Dose 2016-11-14 Completed [facility] of 00:00:00 [facility] Influenza High Dose 2016-11-14 Completed [facility] of 00:00:00 [facility] Influenza High Dose 2016-11-14 Completed [facility] of 00:00:00 [facility] Influenza High Dose 2016-11-14 Completed [facility] of 00:00:00 [facility] Influenza High Dose 2016-11-14 Completed [facility] of 00:00:00 [facility] Influenza High Dose 2016-11-14 Completed [facility] of 00:00:00 [facility] Influenza High Dose 2016-11-14 Completed [facility] of 00:00:00 [facility] Influenza High Dose 2016-11-14 Completed [facility] of 00:00:00 [facility] Influenza High Dose 2016-11-14 Completed [facility] of 00:00:00 [facility] Influenza High Dose 2016-11-14 Completed [facility] of 00:00:00 [facility] Influenza High Dose 2016-11-14 Completed [facility] of 00:00:00 [facility] Influenza High Dose 2016-11-14 Completed [facility] of 00:00:00 [facility] Influenza High Dose Unknown Completed [facility] of [facility] Pneumococcal Unknown Completed University o f Polysaccharide, [facility] ical PPSV23 (PNEUMOVAX) Branch TDAP Unknown Completed [facility] Influenza High Dose Unknown Completed [facility]ity of [facility] Influenza High Dose Unknown Completed [facility] of [facility] SARS-COV-2 COVID-19 Unknown Completed [facility]ive rsity of MODERNA 0.25ML [facility] angelica BOOSTER VACCINE Branch Influenza Virus Unknown Completed [facility] of Vaccine,quad [place] [facility],preserve Free Branch 65+ (FLUAD) Influenza High Dose Unknown Completed [facility]ity of [facility] Pneumococcal 20 Unknown Completed Universit y of Conjugate, PCV20 [facility] dical (Prevnar 20) Branch Influenza High Dose Unknown Completed [facility] of [facility] Pneumococcal Unknown Completed University o f Polysaccharide, [facility] ical PPSV23 (PNEUMOVAX) Branch TDAP Unknown Completed [facility] [place] [facility] Influenza High Dose Unknown Completed [facility] of [facility] Influenza High Dose Unknown Completed [facility] of [facility] SARS-COV-2 COVID-19 Unknown Completed [facility] MODERNA 0.25ML [place] [facility] BOOSTER VACCINE Branch Influenza Virus Unknown Completed [facility] Vaccine,quad [place] [facility],preserve Free Branch 65+ (FLUAD) Influenza High Dose Unknown Completed [facility] of [facility] Pneumococcal 20 Unknown Completed [facility] Conjugate, PCV20 [place] [facility] (Prevnar 20) Branch Influenza Virus Unknown Completed [facility] Vaccine,quad [place] [facility],preserve Free Branch 65+ (FLUAD) Influenza High Dose Unknown Completed [facility] of [facility] Pneumococcal Unknown Completed [facility] o f Polysaccharide, [place] [facility] PPSV23 (PNEUMOVAX) Branch TDAP Unknown Completed [facility] [place] [facility] Influenza High Dose Unknown Completed [facility] of [facility] Influenza High Dose Unknown Completed [facility] of [facility] SARS-COV-2 COVID-19 Unknown Completed [facility] MODERNA 0.25ML [place] [facility] BOOSTER VACCINE Branch Influenza Virus Unknown Completed [facility] Vaccine,quad [place] [facility],preserve Free Branch 65+ (FLUAD) Influenza High Dose Unknown Completed [facility] of [facility] Pneumococcal 20 Unknown Completed [facility] of Conjugate, PCV20 [place] [facility] (Prevnar 20) Branch Influenza Virus Unknown Completed [facility] Vaccine,quad [place] [facility],preserve Free Branch 65+ (FLUAD) Influenza High Dose Unknown Completed [facility] of [facility] Pneumococcal Unknown Completed [facility] o f Polysaccharide, [place] [facility] PPSV23 (PNEUMOVAX) Branch TDAP Unknown Completed [facility] [place] [facility] Influenza High Dose Unknown Completed [facility] of [facility] Influenza High Dose Unknown Completed [facility] of [facility] SARS-COV-2 COVID-19 Unknown Completed [facility] of MODERNA 0.25ML [place] [facility] BOOSTER VACCINE Branch Influenza Virus Unknown Completed [facility] Vaccine,quad [place] [facility],preserve Free Branch 65+ (FLUAD) Influenza High Dose Unknown Completed [facility] of [facility] Pneumococcal 20 Unknown Completed [facility] of Conjugate, PCV20 [place] [facility] (Prevnar 20) Branch Influenza Virus Unknown Completed [facility] Vaccine,quad [place] [facility],preserve Free Branch 65+ (FLUAD) Influenza High Dose Unknown Completed [facility] of [facility] Pneumococcal Unknown Completed [facility] o f Polysaccharide, [place] [facility] PPSV23 (PNEUMOVAX) Branch TDAP Unknown Completed [facility] [place] [facility] Influenza High Dose Unknown Completed [facility] of [facility] Influenza High Dose Unknown Completed [facility] of [facility] SARS-COV-2 COVID-19 Unknown Completed [facility] of MODERNA 0.25ML [place] [facility] BOOSTER VACCINE Branch Influenza Virus Unknown Completed [facility] Vaccine,quad [place] [facility],preserve Free Branch 65+ (FLUAD) Influenza High Dose Unknown Completed [facility] of [facility] Pneumococcal 20 Unknown Completed [facility] of Conjugate, PCV20 [place] [facility] (Prevnar 20) Branch Influenza Virus Unknown Completed [facility] Vaccine,quad [place] [facility],preserve Free Branch 65+ (FLUAD) Influenza High Dose Unknown Completed [facility] of [facility] Pneumococcal Unknown Completed University o f Polysaccharide, [place] [facility] PPSV23 (PNEUMOVAX) Branch TDAP Unknown Completed [facility] [place] [facility] Influenza High Dose Unknown Completed [facility] of [facility] Influenza High Dose Unknown Completed [facility] of [facility] SARS-COV-2 COVID-19 Unknown Completed [facility] of MODERNA 0.25ML [place] [facility] BOOSTER VACCINE Branch Influenza Virus Unknown Completed [facility] of Vaccine,quad [place] [facility],preserve Free Branch 65+ (FLUAD) Influenza High Dose Unknown Completed [facility] of [facility] Pneumococcal 20 Unknown Completed [facility]it y of Conjugate, PCV20 [place] [facility] (Prevnar 20) Branch Influenza High Dose Unknown Completed [facility] of [facility] Pneumococcal Unknown Completed University o f Polysaccharide, [place] [facility] PPSV23 (PNEUMOVAX) Branch TDAP Unknown Completed [facility] [place] [facility] Influenza High Dose Unknown Completed [facility] of [facility] Influenza High Dose Unknown Completed [facility] of [facility] SARS-COV-2 COVID-19 Unknown Completed [facility] of MODERNA 0.25ML [place] [facility] BOOSTER VACCINE Branch Influenza High Dose Unknown Completed [facility] of [facility] Influenza High Dose Unknown Completed [facility] of [facility] Pneumococcal Unknown Completed [facility] o f Polysaccharide, [place] [facility] PPSV23 (PNEUMOVAX) Branch TDAP Unknown Completed [facility] [place] [facility] Influenza High Dose Unknown Completed [facility] of [facility] Influenza High Dose Unknown Completed [facility] of [facility] SARS-COV-2 COVID-19 Unknown Completed [facility] of MODERNA 0.25ML [place] [facility] BOOSTER VACCINE Branch Influenza High Dose Unknown Completed [facility] of [facility] Influenza High Dose Unknown Completed [facility] of [facility] Pneumococcal Unknown Completed [facility] o f Polysaccharide, [place] [facility] PPSV23 (PNEUMOVAX) Branch TDAP Unknown Completed [facility] [place] [facility] Influenza High Dose Unknown Completed [facility] of [facility] Influenza High Dose Unknown Completed [facility] of [facility] Influenza High Dose Unknown Completed [facility] of [facility] Influenza High Dose Unknown Completed [facility] of [facility] Pneumococcal Unknown Completed University o f Polysaccharide, [place] [facility] PPSV23 (PNEUMOVAX) Branch TDAP Unknown Completed [facility] [place] [facility] Influenza High Dose Unknown Completed [facility] of [facility] Influenza High Dose Unknown Completed [facility] of [facility] SARS-COV-2 COVID-19 Unknown Completed [facility] rs[facility] of MODERNA 0.25ML [place] [facility] BOOSTER VACCINE Branch Influenza Virus Unknown Completed [facility] Vaccine,quad [place] [facility],preserve Free Branch 65+ (FLUAD) Influenza High Dose Unknown Completed [facility] of [facility] Pneumococcal 20 Unknown Completed [facility]it y of Conjugate, PCV20 [place] [facility] (Prevnar 20) Branch Influenza Virus Unknown Completed [facility] of Vaccine,quad [place] [facility],preserve Free Branch 65+ (FLUAD) Influenza High Dose Unknown Completed [facility] of [facility] Pneumococcal Unknown Completed University o f Polysaccharide, [place] [facility] ical PPSV23 (PNEUMOVAX) Branch TDAP Unknown Completed [facility] [place] [facility] Influenza High Dose Unknown Completed [facility] of [facility] Influenza High Dose Unknown Completed [facility] of [facility] SARS-COV-2 COVID-19 Unknown Completed [facility] rs[facility] of MODERNA 0.25ML [place] [facility] BOOSTER VACCINE Branch Influenza Virus Unknown Completed [facility] Vaccine,quad [place] [facility],preserve Free Branch 65+ (FLUAD) Influenza High Dose Unknown Completed [facility] of [facility] Pneumococcal 20 Unknown Completed [facility] y of Conjugate, PCV20 [place] [facility] (Prevnar 20) Branch Influenza Virus Unknown Completed [facility] of Vaccine,quad [place] [facility],preserve Free Branch 65+ (FLUAD) Influenza High Dose Unknown Completed [facility] of [facility] Pneumococcal Unknown Completed University o f Polysaccharide, [place] [facility] PPSV23 (PNEUMOVAX) Branch TDAP Unknown Completed [facility] [place] [facility] Influenza High Dose Unknown Completed [facility] of [facility] Influenza High Dose Unknown Completed [facility] of [facility] SARS-COV-2 COVID-19 Unknown Completed [facility] rsity of MODERNA 0.25ML [place] [facility] BOOSTER VACCINE Branch Influenza Virus Unknown Completed [facility] of Vaccine,quad [place] [facility],preserve Free Branch 65+ (FLUAD) Influenza High Dose Unknown Completed [facility] of [facility] Pneumococcal 20 Unknown Completed [facility]it y of Conjugate, PCV20 [place] [facility] (Prevnar 20) Branch Influenza Virus Unknown Completed [facility] of Vaccine,quad [place] [facility],preserve Free Branch 65+ (FLUAD) Influenza High Dose Unknown Completed [facility] of [facility] Pneumococcal Unknown Completed University o f Polysaccharide, [place] [facility] ical PPSV23 (PNEUMOVAX) Branch TDAP Unknown Completed [facility] [place] [facility] Influenza High Dose Unknown Completed [facility] of [facility] Influenza High Dose Unknown Completed [facility] of [facility] SARS-COV-2 COVID-19 Unknown Completed [facility]ive rsity of MODERNA 0.25ML [place] [facility] BOOSTER VACCINE Branch Influenza Virus Unknown Completed [facility] of Vaccine,quad [place] [facility],preserve Free Branch 65+ (FLUAD) Influenza High Dose Unknown Completed [facility] of [facility] Pneumococcal 20 Unknown Completed [facility]it y of Conjugate, PCV20 [place] [facility] (Prevnar 20) Branch Influenza Virus Unknown Completed [facility] of Vaccine,quad [place] [facility],preserve Free Branch 65+ (FLUAD) Influenza High Dose Unknown Completed [facility] of [facility] Pneumococcal Unknown Completed University o f Polysaccharide, [place] [facility] PPSV23 (PNEUMOVAX) Branch TDAP Unknown Completed [facility] [place] [facility] Influenza High Dose Unknown Completed [facility]ity of [facility] Influenza High Dose Unknown Completed [facility] of [facility] SARS-COV-2 COVID-19 Unknown Completed Unive rsity of MODERNA 0.25ML [place] [facility] BOOSTER VACCINE Branch Influenza Virus Unknown Completed [facility] of Vaccine,quad [place] [facility],preserve Free Branch 65+ (FLUAD) Influenza High Dose Unknown Completed [facility] of [facility] Pneumococcal 20 Unknown Completed [facility] y of Conjugate, PCV20 [place] [facility] (Prevnar 20) Branch Influenza Virus Unknown Completed [facility] y of Vaccine,quad [place] [facility],preserve Free Branch 65+ (FLUAD) Influenza High Dose Unknown Completed [facility] of [facility] Pneumococcal Unknown Completed University o f Polysaccharide, [place] [facility] PPSV23 (PNEUMOVAX) Branch TDAP Unknown Completed [facility] [place] [facility] Influenza High Dose Unknown Completed [facility] of [facility] Influenza High Dose Unknown Completed [facility] of [facility] SARS-COV-2 COVID-19 Unknown Completed [facility]ive rsity of MODERNA 0.25ML [place] [facility] BOOSTER VACCINE Branch Influenza Virus Unknown Completed [facility] y of Vaccine,quad [place] [facility],preserve Free Branch 65+ (FLUAD) Influenza High Dose Unknown Completed [facility] of [facility] Pneumococcal 20 Unknown Completed [facility] y of Conjugate, PCV20 [place] [facility] (Prevnar 20) Branch Influenza Virus Unknown Completed [facility] of Vaccine,quad [place] [facility],preserve Free Branch 65+ (FLUAD) Influenza High Dose Unknown Completed [facility] of [facility] Pneumococcal Unknown Completed University o f Polysaccharide, [place] [facility] PPSV23 (PNEUMOVAX) Branch TDAP Unknown Completed [facility] [place] [facility] Influenza High Dose Unknown Completed [facility] of [facility] Influenza High Dose Unknown Completed [facility] of [facility] SARS-COV-2 COVID-19 Unknown Completed [facility]ive rsity of MODERNA 0.25ML [place] [facility] BOOSTER VACCINE Branch Influenza Virus Unknown Completed [facility] of Vaccine,quad [place] [facility],preserve Free Branch 65+ (FLUAD) Influenza High Dose Unknown Completed [facility] of [facility] Pneumococcal 20 Unknown Completed [facility] y of Conjugate, PCV20 [place] [facility] (Prevnar 20) Branch Influenza Virus Unknown Completed [facility] of Vaccine,quad [place] [facility],preserve Free Branch 65+ (FLUAD) Influenza High Dose Unknown Completed [facility] of [facility] Pneumococcal Unknown Completed University o f Polysaccharide, [place] [facility] ical PPSV23 (PNEUMOVAX) Branch TDAP Unknown Completed [facility] [place] [facility] Influenza High Dose Unknown Completed [facility] of [facility] Influenza High Dose Unknown Completed [facility] of [facility] SARS-COV-2 COVID-19 Unknown Completed [facility]ive rsity of MODERNA 0.25ML [place] [facility] BOOSTER VACCINE Branch Influenza Virus Unknown Completed [facility] y of Vaccine,quad [place] [facility],preserve Free Branch 65+ (FLUAD) Influenza High Dose Unknown Completed [facility] of [facility] Pneumococcal 20 Unknown Completed [facility]it y of Conjugate, PCV20 [place] [facility] (Prevnar 20) Branch Influenza Virus Unknown Completed [facility] of Vaccine,quad [place] [facility],preserve Free Branch 65+ (FLUAD) Influenza High Dose Unknown Completed [facility] of [facility] Pneumococcal Unknown Completed University o f Polysaccharide, [place] [facility] ical PPSV23 (PNEUMOVAX) Branch TDAP Unknown Completed [facility] [place] [facility] Influenza High Dose Unknown Completed [facility] of [facility] Influenza High Dose Unknown Completed [facility] of [facility] SARS-COV-2 COVID-19 Unknown Completed Unive rsity of MODERNA 0.25ML [place] [facility] BOOSTER VACCINE Branch Influenza Virus Unknown Completed [facility] y of Vaccine,quad [place] [facility],preserve Free Branch 65+ (FLUAD) Influenza High Dose Unknown Completed [facility] of [facility] Pneumococcal 20 Unknown Completed [facility]it y of Conjugate, PCV20 [place] [facility] (Prevnar 20) Branch Influenza Virus Unknown Completed [facility] y of Vaccine,quad [place] [facility],preserve Free Branch 65+ (FLUAD) Influenza High Dose Unknown Completed [facility] of [facility] Pneumococcal Unknown Completed University o f Polysaccharide, [place] [facility] PPSV23 (PNEUMOVAX) Branch TDAP Unknown Completed [facility] [place] [facility] Influenza High Dose Unknown Completed [facility] of [facility] Influenza High Dose Unknown Completed [facility] of [facility] SARS-COV-2 COVID-19 Unknown Completed Unive rsity of MODERNA 0.25ML [place] [facility] BOOSTER VACCINE Branch Influenza Virus Unknown Completed [facility] y of Vaccine,quad [place] [facility],preserve Free Branch 65+ (FLUAD) Influenza High Dose Unknown Completed [facility] of [facility] Pneumococcal 20 Unknown Completed [facility] y of Conjugate, PCV20 [place] [facility] (Prevnar 20) Branch Influenza Virus Unknown Completed [facility] of Vaccine,quad [place] [facility],preserve Free Branch 65+ (FLUAD) Influenza High Dose Unknown Completed [facility] of [facility] Pneumococcal Unknown Completed University o f Polysaccharide, [place] [facility] PPSV23 (PNEUMOVAX) Branch TDAP Unknown Completed [facility] [place] [facility] Influenza High Dose Unknown Completed [facility] of [facility] Influenza High Dose Unknown Completed [facility] of [facility] SARS-COV-2 COVID-19 Unknown Completed Unive rsity of MODERNA 0.25ML [place] [facility] BOOSTER VACCINE Branch Influenza Virus Unknown Completed [facility] y of Vaccine,quad [place] [facility],preserve Free Branch 65+ (FLUAD) Influenza High Dose Unknown Completed [facility] of [facility] Pneumococcal 20 Unknown Completed [facility] y of Conjugate, PCV20 [place] [facility] (Prevnar 20) Branch Influenza Virus Unknown Completed [facility] y of Vaccine,quad [place] [facility],preserve Free Branch 65+ (FLUAD) Influenza High Dose Unknown Completed Unive rsity [facility] Pneumococcal Unknown Completed University o f Polysaccharide, [place] [facility] PPSV23 (PNEUMOVAX) Branch TDAP Unknown Completed [facility] [place] [facility] Influenza High Dose Unknown Completed [facility]ity of [facility] Influenza High Dose Unknown Completed [facility] of [facility] SARS-COV-2 COVID-19 Unknown Completed Unive rsity of MODERNA 0.25ML [place] [facility] BOOSTER VACCINE Branch Influenza Virus Unknown Completed [facility] of Vaccine,quad [place] [facility],preserve Free Branch 65+ (FLUAD) Influenza High Dose Unknown Completed Unive rsity [facility] Pneumococcal 20 Unknown Completed [facility]it y of Conjugate, PCV20 [place] [facility] (Prevnar 20) Branch Influenza Virus Unknown Completed [facility] of Vaccine,quad [place] [facility],preserve Free Branch 65+ (FLUAD) Influenza High Dose Unknown Completed [facility] of [facility] Pneumococcal Unknown Completed University o f Polysaccharide, [place] [facility] PPSV23 (PNEUMOVAX) Branch TDAP Unknown Completed [facility] [place] [facility] Influenza High Dose Unknown Completed [facility] of [facility] Influenza High Dose Unknown Completed [facility] of [facility] SARS-COV-2 COVID-19 Unknown Completed Unive rsity of MODERNA 0.25ML [place] [facility] BOOSTER VACCINE Branch Influenza Virus Unknown Completed [facility] y of Vaccine,quad [place] [facility],preserve Free Branch 65+ (FLUAD) Influenza High Dose Unknown Completed [facility] of [facility] Pneumococcal 20 Unknown Completed [facility]it y of Conjugate, PCV20 [place] [facility] (Prevnar 20) Branch Influenza Virus Unknown Completed [facility] of Vaccine,quad [place] [facility],preserve Free Branch 65+ (FLUAD) Influenza High Dose Unknown Completed [facility] of [facility] Pneumococcal Unknown Completed University o f Polysaccharide, [place] [facility] PPSV23 (PNEUMOVAX) Branch TDAP Unknown Completed [facility] [place] [facility] Influenza High Dose Unknown Completed [facility] of [facility] Influenza High Dose Unknown Completed [facility] of [facility] SARS-COV-2 COVID-19 Unknown Completed Unive rsity of MODERNA 0.25ML [place] [facility] BOOSTER VACCINE Branch Influenza Virus Unknown Completed [facility] y of Vaccine,quad [place] [facility],preserve Free Branch 65+ (FLUAD) Influenza High Dose Unknown Completed [facility] of [facility] Pneumococcal 20 Unknown Completed [facility]it y of Conjugate, PCV20 [place] [facility] (Prevnar 20) Branch Influenza Virus Unknown Completed [facility] of Vaccine,quad [place] [facility],preserve Free Branch 65+ (FLUAD) Influenza High Dose Unknown Completed [facility] of [facility] Pneumococcal Unknown Completed University o f Polysaccharide, [place] [facility] PPSV23 (PNEUMOVAX) Branch TDAP Unknown Completed [facility] [place] [facility] Influenza High Dose Unknown Completed [facility] of [facility] Influenza High Dose Unknown Completed [facility] of [facility] SARS-COV-2 COVID-19 Unknown Completed Unive rsity of MODERNA 0.25ML [place] [facility] BOOSTER VACCINE Branch Influenza Virus Unknown Completed [facility] of Vaccine,quad [place] [facility],preserve Free Branch 65+ (FLUAD) Influenza High Dose Unknown Completed [facility] of [facility] Pneumococcal 20 Unknown Completed [facility]it y of Conjugate, PCV20 [place] [facility] (Prevnar 20) Branch Influenza Virus Unknown Completed [facility] of Vaccine,quad [place] [facility],preserve Free Branch 65+ (FLUAD) Influenza High Dose Unknown Completed [facility] Pneumococcal Unknown Completed University o f Polysaccharide, [place] [facility] PPSV23 (PNEUMOVAX) Branch TDAP Unknown Completed [facility] [place] [facility] Influenza High Dose Unknown Completed [facility] Influenza High Dose Unknown Completed [facility] of [facility] SARS-COV-2 COVID-19 Unknown Completed [facility]ive rsity of [employer] 0.25ML [place] [facility] angel[facility] BOOSTER VACCINE Branch Influenza Virus Unknown Completed [facility]it y of Vaccine,quad [place] [facility],preserve Free Branch 65+ (FLUAD) Influenza High Dose Unknown Completed [facility] of [facility] Pneumococcal 20 Unknown Completed Universit y of Conjugate, PCV20 [place] [facility] (Prevnar 20) Branch Influenza Virus Unknown Completed [facility] of Vaccine,quad [place] [facility],preserve Free Branch 65+ (FLUAD) Influenza High Dose Unknown Completed [facility] Pneumococcal Unknown Completed [facility] o f Polysaccharide, [place] [facility] PPSV23 (PNEUMOVAX) Branch TDAP Unknown Completed [facility] [place] [facility] Influenza High Dose Unknown Completed [facility] Influenza High Dose Unknown Completed [facility] of [facility] SARS-COV-2 COVID-19 Unknown Completed [facility] of [employer] 0.25ML [place] [facility] BOOSTER VACCINE Branch Influenza Virus Unknown Completed [facility]it [facility] of Vaccine,quad [place] [facility],preserve Free Branch 65+ (FLUAD) Influenza High Dose Unknown Completed [facility] Pneumococcal 20 Unknown Completed [facility]it [facility] of Conjugate, PCV20 [place] [facility] (Prevnar 20) Branch Influenza Virus Unknown Completed [facility] of Vaccine,quad [place] [facility],preserve Free Branch 65+ (FLUAD) Influenza High Dose Unknown Completed [facility] Pneumococcal Unknown Completed [facility] o f Polysaccharide, [place] [facility] PPSV23 (PNEUMOVAX) Branch TDAP Unknown Completed [facility] [place] [facility] Influenza High Dose Unknown Completed [facility] Influenza High Dose Unknown Completed [facility] SARS-COV-2 COVID-19 Unknown Completed [facility] of [employer] 0.25ML [place] [facility] BOOSTER VACCINE Branch Influenza Virus Unknown Completed [facility] of Vaccine,quad [place] [facility],preserve Free Branch 65+ (FLUAD) Influenza High Dose Unknown Completed [facility] Pneumococcal 20 Unknown Completed [facility]it [facility] of Conjugate, PCV20 [place] [facility] (Prevnar 20) Branch Influenza Virus Unknown Completed [facility] of Vaccine,quad [place] [facility],preserve Free Branch 65+ (FLUAD) Influenza High Dose Unknown Completed [facility] Pneumococcal Unknown Completed [facility] o f Polysaccharide, [place] [facility] PPSV23 (PNEUMOVAX) Branch TDAP Unknown Completed [facility] [place] [facility] Influenza High Dose Unknown Completed [facility] Influenza High Dose Unknown Completed [facility] SARS-COV-2 COVID-19 Unknown Completed [facility] of [employer] 0.25ML [place] [facility] BOOSTER VACCINE Branch Influenza Virus Unknown Completed [facility] of Vaccine,quad [place] [facility],preserve Free Branch 65+ (FLUAD) Influenza High Dose Unknown Completed [facility] Pneumococcal 20 Unknown Completed [facility]it [facility] of Conjugate, PCV20 [place] [facility] (Prevnar 20) Branch Influenza Virus Unknown Completed [facility] of Vaccine,quad [place] [facility],preserve Free Branch 65+ (FLUAD) Influenza High Dose Unknown Completed [facility] Pneumococcal Unknown Completed [facility] o f Polysaccharide, [place] [facility] PPSV23 (PNEUMOVAX) Branch TDAP Unknown Completed [facility] [place] [facility] Influenza High Dose Unknown Completed [facility] Influenza High Dose Unknown Completed [facility] SARS-COV-2 COVID-19 Unknown Completed [facility] of [employer] 0.25ML [place] [facility] BOOSTER VACCINE Branch Influenza Virus Unknown Completed [facility] of Vaccine,quad [place] [facility],preserve Free Branch 65+ (FLUAD) Influenza High Dose Unknown Completed [facility] Pneumococcal 20 Unknown Completed [facility]it [facility] of Conjugate, PCV20 [place] [facility] (Prevnar 20) Branch Influenza Virus Unknown Completed [facility] of Vaccine,quad [place] [facility],preserve Free Branch 65+ (FLUAD) Influenza High Dose Unknown Completed [facility] Pneumococcal Unknown Completed [facility] o f Polysaccharide, [place] [facility] PPSV23 (PNEUMOVAX) Branch TDAP Unknown Completed [facility] [place] [facility] Influenza High Dose Unknown Completed [facility] Influenza High Dose Unknown Completed [facility] SARS-COV-2 COVID-19 Unknown Completed [facility] of [employer] 0.25ML [place] [facility] BOOSTER VACCINE Branch Influenza Virus Unknown Completed [facility] of Vaccine,quad [place] [facility],preserve Free Branch 65+ (FLUAD) Influenza High Dose Unknown Completed [facility] Pneumococcal 20 Unknown Completed [facility]it [facility] of Conjugate, PCV20 [place] [facility] (Prevnar 20) Branch Influenza Virus Unknown Completed [facility] of Vaccine,quad [place] [facility],preserve Free Branch 65+ (FLUAD) Influenza High Dose Unknown Completed [facility] Pneumococcal Unknown Completed [facility] o f Polysaccharide, [place] [facility] PPSV23 (PNEUMOVAX) Branch TDAP Unknown Completed [facility] [place] [facility] Influenza High Dose Unknown Completed [facility] Influenza High Dose Unknown Completed [facility] SARS-COV-2 COVID-19 Unknown Completed [facility] of [employer] 0.25ML [place] [facility] BOOSTER VACCINE Branch Influenza Virus Unknown Completed [facility] of Vaccine,quad [place] [facility],preserve Free Branch 65+ (FLUAD) Influenza High Dose Unknown Completed [facility] Pneumococcal 20 Unknown Completed [facility]it [facility] of Conjugate, PCV20 [place] [facility] (Prevnar 20) Branch Influenza Virus Unknown Completed [facility] of Vaccine,quad [place] [facility],preserve Free Branch 65+ (FLUAD) Influenza High Dose Unknown Completed [facility] Pneumococcal Unknown Completed [facility] o f Polysaccharide, [place] [facility] PPSV23 (PNEUMOVAX) Branch TDAP Unknown Completed [facility] [place] [facility] Influenza High Dose Unknown Completed [facility] Influenza High Dose Unknown Completed [facility] SARS-COV-2 COVID-19 Unknown Completed [facility] of [employer] 0.25ML [place] [facility] BOOSTER VACCINE Branch Influenza Virus Unknown Completed [facility] Vaccine,quad [place] [facility],preserve Free Branch 65+ (FLUAD) Influenza High Dose Unknown Completed [facility] Pneumococcal 20 Unknown Completed [facility]it [facility] of Conjugate, PCV20 [place] [facility] (Prevnar 20) Branch Influenza Virus Unknown Completed [facility] of Vaccine,quad [place] [facility],preserve Free Branch 65+ (FLUAD) Influenza High Dose Unknown Completed [facility] Pneumococcal Unknown Completed [facility] o f Polysaccharide, [place] [facility] PPSV23 (PNEUMOVAX) Branch TDAP Unknown Completed [facility] [place] [facility] Influenza High Dose Unknown Completed [facility] Influenza High Dose Unknown Completed [facility] of [facility] SARS-COV-2 COVID-19 Unknown Completed [facility] of [employer] 0.25ML [place] [facility] BOOSTER VACCINE Branch Influenza Virus Unknown Completed [facility] of Vaccine,quad [place] [facility],preserve Free Branch 65+ (FLUAD) Influenza High Dose Unknown Completed [facility] Pneumococcal 20 Unknown Completed [facility]it y of Conjugate, PCV20 [place] [facility] (Prevnar 20) Branch Influenza Virus Unknown Completed [facility] of Vaccine,quad [place] [facility],preserve Free Branch 65+ (FLUAD) Influenza High Dose Unknown Completed [facility] Pneumococcal Unknown Completed [facility] o f Polysaccharide, [place] [facility] PPSV23 (PNEUMOVAX) Branch TDAP Unknown Completed [facility] [place] [facility] Influenza High Dose Unknown Completed [facility] Influenza High Dose Unknown Completed [facility] SARS-COV-2 COVID-19 Unknown Completed [facility]ive rsity of [employer] 0.25ML [place] [facility] BOOSTER VACCINE Branch Influenza Virus Unknown Completed [facility] of Vaccine,quad [place] [facility],preserve Free Branch 65+ (FLUAD) Influenza High Dose Unknown Completed [facility] Pneumococcal 20 Unknown Completed [facility]it y of Conjugate, PCV20 [place] [facility] (Prevnar 20) Branch Influenza Virus Unknown Completed [facility] of Vaccine,quad [place] [facility],preserve Free Branch 65+ (FLUAD) Influenza High Dose Unknown Completed [facility] Pneumococcal Unknown Completed [facility] o f Polysaccharide, [place] [facility] PPSV23 (PNEUMOVAX) Branch TDAP Unknown Completed [facility] [place] [facility] Influenza High Dose Unknown Completed [facility] Influenza High Dose Unknown Completed [facility] SARS-COV-2 COVID-19 Unknown Completed [facility] rsity of [employer] 0.25ML [place] [facility] BOOSTER VACCINE Branch Influenza Virus Unknown Completed [facility] of Vaccine,quad [place] [facility],preserve Free Branch 65+ (FLUAD) Influenza High Dose Unknown Completed [facility] Pneumococcal 20 Unknown Completed [facility]it y of Conjugate, PCV20 [place] [facility] (Prevnar 20) Branch Influenza Virus Unknown Completed [facility] of Vaccine,quad [place] [facility],preserve Free Branch 65+ (FLUAD) Vital Signs Vital Name Observation Time Observation Value Comments Source HEIGHT 2019-07-08 00:00:00 147.3 cm WEIGHT 2019-07-08 00:00:00 57.743 kg Systolic blood 2022-12-26 15:50:00 131 mm[Hg] [facility] pressure [place] [facility] Diastolic blood 2022-12-26 15:50:00 62 mm[Hg] [facility] of pressure [place] [facility] Heart rate 2022-12-26 15:49:00 92 /min [facility] [place] [facility] Respiratory rate 2022-12-26 15:49:00 18 /min [facility] ers[facility] [place] [facility] Body height 2022-12-26 15:49:00 160 cm [facility] [place] [facility] Body weight 2022-12-26 15:49:00 63.957 kg [facility] [place] [facility] BMI 2022-12-26 15:49:00 24.98 kg/m2 [facility] [place] [facility] Oxygen saturation in 2022-12-26 15:49:00 97 /min University of Arterial blood by [place] [employer] angelica Pulse oximetry Branch Systolic blood 2022-12-05 20:12:00 135 mm[Hg] Univer [facility]ity of pressure [place] [facility] Diastolic blood 2022-12-05 20:12:00 76 mm[Hg] [facility] rs[facility] of pressure [place] [facility] Heart rate 2022-12-05 20:12:00 71 /min [facility] [place] [facility] Body temperature 2022-12-05 20:12:00 36.28 Monique [facility] [place] [facility] Respiratory rate 2022-12-05 20:12:00 16 /min [facility] [place] [facility] Body height 2022-12-05 20:12:00 160 cm [facility] [place] [facility] Body weight 2022-12-05 20:12:00 64.411 kg [facility] [place] [facility] BMI 2022-12-05 20:12:00 25.15 kg/m2 [facility] [place] [facility] Oxygen saturation in 2022-12-05 20:12:00 95 /min University of Arterial blood by [employer] angelica Pulse oximetry Branch Systolic blood 2022-12-02 21:28:00 122 mm[Hg] [facility]iver [facility]ity of pressure [place] [facility] Diastolic blood 2022-12-02 21:28:00 71 mm[Hg] [facility] of pressure [place] [facility] Heart rate 2022-12-02 21:28:00 74 /min [facility] [place] [facility] Body height 2022-12-02 21:28:00 160 cm [facility] [place] [facility] Body weight 2022-12-02 21:28:00 64.819 kg [facility] [place] [facility] BMI 2022-12-02 21:28:00 25.31 kg/m2 [facility] [place] [facility] Oxygen saturation in 2022-12-02 21:28:00 98 /min [facility] of Arterial blood by [place] [employer] angelica Pulse oximetry Branch Systolic blood 2022-11-11 19:32:00 119 mm[Hg] [facility]ity of pressure [place] [facility] Diastolic blood 2022-11-11 19:32:00 67 mm[Hg] [facility] of pressure [place] [facility] Heart rate 2022-11-11 19:32:00 89 /min [facility] [place] [facility] Body temperature 2022-11-11 19:32:00 36.61 Monique [facility] [place] [facility] Body height 2022-11-11 19:32:00 160 cm [facility] [place] [facility] Body weight 2022-11-11 19:32:00 64.048 kg [facility] [place] [facility] BMI 2022-11-11 19:32:00 25.01 kg/m2 [facility] [place] [facility] Oxygen saturation in 2022-11-11 19:32:00 97 /min [facility] of Arterial blood by [place] [employer] angelica Pulse oximetry Branch Systolic blood 2022-10-26 15:21:00 132 mm[Hg] [facility]iver [facility]ity of pressure [place] [facility] Diastolic blood 2022-10-26 15:21:00 50 mm[Hg] [facility] of pressure [place] [facility] Heart rate 2022-10-26 15:21:00 70 /min [facility] [place] [facility] Respiratory rate 2022-10-26 15:21:00 18 /min [facility] [place] [facility] Body height 2022-10-26 15:21:00 160 cm [facility] [place] [facility] Body weight 2022-10-26 15:21:00 63.504 kg [facility] [place] [facility] BMI 2022-10-26 15:21:00 24.80 kg/m2 [facility] [place] [facility] Oxygen saturation in 2022-10-26 15:21:00 96 /min [facility] of Arterial blood by [place] [employer] angelica Pulse oximetry Branch Systolic blood 2022-09-22 20:30:00 124 mm[Hg] [facility]iver [facility]ity of pressure [place] [facility] Diastolic blood 2022-09-22 20:30:00 68 mm[Hg] [facility] rsity of pressure [place] [facility] Heart rate 2022-09-22 20:30:00 89 /min [facility] [place] [facility] Respiratory rate 2022-09-22 20:30:00 18 /min [facility] [place] [facility] Body height 2022-09-22 20:30:00 160 cm [facility] [place] [facility] Body weight 2022-09-22 20:30:00 63.957 kg [facility] [place] [facility] BMI 2022-09-22 20:30:00 24.98 kg/m2 [facility] [place] [facility] Oxygen saturation in 2022-09-22 20:30:00 96 /min [facility] Arterial blood by [place] [facility] Pulse oximetry Branch Systolic blood 2022-09-08 15:26:00 134 mm[Hg] [facility]iver [facility] of pressure [place] [facility] Diastolic blood 2022-09-08 15:26:00 65 mm[Hg] [facility] of pressure [place] [facility] Heart rate 2022-09-08 15:10:00 86 /min [facility] [place] [facility] Body temperature 2022-09-08 15:10:00 36.61 Monique [facility] [place] [facility] Body height 2022-09-08 15:10:00 160 cm [facility] [place] [facility] Body weight 2022-09-08 15:10:00 64.139 kg [facility] [place] [facility] BMI 2022-09-08 15:10:00 25.05 kg/m2 [facility] [place] [facility] Oxygen saturation in 2022-09-08 15:10:00 97 /min [facility] Arterial blood by [place] [facility] Pulse oximetry Branch Systolic blood 2022-08-09 18:25:00 125 mm[Hg] [facility]iver [facility] of pressure [place] [facility] Diastolic blood 2022-08-09 18:25:00 76 mm[Hg] [facility] rs[facility] of pressure [place] [facility] Heart rate 2022-08-09 18:25:00 62 /min [facility] [place] [facility] Respiratory rate 2022-08-09 18:25:00 19 /min [facility] [place] [facility] Body height 2022-08-09 18:25:00 160 cm [facility] [place] [facility] Body weight 2022-08-09 18:25:00 62.687 kg [facility] [place] [facility] BMI 2022-08-09 18:25:00 24.48 kg/m2 [facility] [place] [facility] Oxygen saturation in 2022-08-09 18:25:00 96 /min [facility] Arterial blood by [place] [facility] Pulse oximetry Branch Systolic blood 2022-08-09 15:15:00 138 mm[Hg] Univer [facility]ity of pressure [place] [facility] Diastolic blood 2022-08-09 15:15:00 71 mm[Hg] [facility] rs[facility] of pressure [place] [facility] Heart rate 2022-08-09 15:15:00 93 /min [facility] [place] [facility] Body height 2022-08-09 15:15:00 160 cm [facility] [place] [facility] Body weight 2022-08-09 15:15:00 62.642 kg [facility] [place] [facility] BMI 2022-08-09 15:15:00 24.46 kg/m2 [facility] [place] [facility] Oxygen saturation in 2022-08-09 15:15:00 96 /min [facility] of Arterial blood by [place] [employer] angelica Pulse oximetry Branch Systolic blood 2022-07-12 20:34:00 117 mm[Hg] Univer [facility]ity of pressure [place] [facility] Diastolic blood 2022-07-12 20:34:00 54 mm[Hg] [facility] rs[facility] of pressure [place] [facility] Heart rate 2022-07-12 20:34:00 87 /min [facility] [place] [facility] Body temperature 2022-07-12 20:34:00 36.56 Monique [facility] [place] [facility] Respiratory rate 2022-07-12 20:34:00 17 /min [facility] [place] [facility] Body weight 2022-07-12 20:34:00 63.957 kg [facility] [place] [facility] BMI 2022-07-12 20:34:00 24.51 kg/m2 [facility] [place] [facility] Oxygen saturation in 2022-07-12 20:34:00 96 /min [facility] of Arterial blood by [place] [employer] angelica Pulse oximetry Branch Systolic blood 2022-06-28 15:18:00 130 mm[Hg] [facility]iver [facility]ity of pressure [place] [facility] Diastolic blood 2022-06-28 15:18:00 55 mm[Hg] [facility]ive rsity of pressure [place] [facility] Heart rate 2022-06-28 14:36:00 75 /min [facility] [place] [facility] Respiratory rate 2022-06-28 14:36:00 20 /min [facility] [place] [facility] Body height 2022-06-28 14:36:00 161.5 cm [facility] [place] [facility] Body weight 2022-06-28 14:36:00 65 kg [facility] [place] [facility] BMI 2022-06-28 14:36:00 24.91 kg/m2 [facility] [place] [facility] Oxygen saturation in 2022-06-28 14:36:00 98 /min [facility] of Arterial blood by [facility] Pulse oximetry Branch Systolic blood 2022-06-09 18:20:00 126 mm[Hg] Univer sity of pressure [place] [facility] Diastolic blood 2022-06-09 18:20:00 56 mm[Hg] Unive rsity of pressure [place] [facility] Heart rate 2022-06-09 18:20:00 83 /min [facility] [place] [facility] Oxygen saturation in 2022-06-09 18:20:00 93 /min University of Arterial blood by [facility] Pulse oximetry Branch Respiratory rate 2022-06-09 18:18:00 17 /min [facility] [place] [facility] Body height 2022-06-09 18:18:00 157.5 cm [facility] [place] [facility] Body weight 2022-06-09 18:18:00 64.411 kg [facility] [place] [facility] BMI 2022-06-09 18:18:00 25.97 kg/m2 [facility] [place] [facility] Systolic blood 2022-06-07 21:32:00 126 mm[Hg] [facility]iver [facility]ity of pressure [place] [facility] Diastolic blood 2022-06-07 21:32:00 71 mm[Hg] [facility] rsity of pressure [place] [facility] Heart rate 2022-06-07 21:32:00 77 /min [facility] [place] [facility] Body temperature 2022-06-07 21:32:00 37.28 Monique [facility] [place] [facility] Respiratory rate 2022-06-07 21:32:00 16 /min Univ [facility] of [facility] [place] [facility] Body height 2022-06-07 21:32:00 157.5 cm [facility] of [facility] [place] [facility] Body weight 2022-06-07 21:32:00 64.547 kg [facility] [place] [facility] BMI 2022-06-07 21:32:00 26.03 kg/m2 [facility] ty of [facility] Oxygen saturation in 2022-06-07 21:32:00 97 /min University of Arterial blood by [place] [employer] angelica Pulse oximetry Branch WEIGHT 2022-06-01 05:00:00 64.638 kg HEIGHT 2022-05-28 08:00:00 157.5 cm WEIGHT 2022-05-28 08:00:00 64 kg WEIGHT 2022-06-01 05:00:00 64.638 kg HEIGHT 2022-05-28 08:00:00 157.5 cm WEIGHT 2022-05-28 08:00:00 64 kg WEIGHT 2022-06-01 05:00:00 64.638 kg HEIGHT 2022-05-28 08:00:00 157.5 cm WEIGHT 2022-05-28 08:00:00 64 kg Systolic blood 2022-05-25 19:34:00 128 mm[Hg] Univer sity of pressure [facility] Diastolic blood 2022-05-25 19:34:00 54 mm[Hg] Unive rsity of pressure [facility] Heart rate 2022-05-25 19:34:00 77 /min [facility] ty of [facility] Body height 2022-05-25 19:34:00 157.5 cm [facility] [place] [facility] Body weight 2022-05-25 19:34:00 62.551 kg [facility] [place] [facility] BMI 2022-05-25 19:34:00 25.22 kg/m2 [facility] [place] [facility] Oxygen saturation in 2022-05-25 19:34:00 95 /min University of Arterial blood by [employer] [facility] Pulse oximetry Branch Systolic blood 2022-05-17 19:02:00 166 mm[Hg] Univer sity of pressure [facility] Diastolic blood 2022-05-17 19:02:00 75 mm[Hg] Unive rsity of pressure [facility] Heart rate 2022-05-17 19:02:00 104 /min [facility] [place] [facility] Body temperature 2022-05-17 19:02:00 36.78 Monique [facility] [place] [facility] Respiratory rate 2022-05-17 19:02:00 18 /min [facility] [place] [facility] Body height 2022-05-17 19:02:00 144.8 cm [facility] [place] [facility] Body weight 2022-05-17 19:02:00 64.955 kg [facility] [place] [facility] BMI 2022-05-17 19:02:00 30.99 kg/m2 [facility] [place] [facility] Oxygen saturation in 2022-05-17 19:02:00 98 /min [facility] of Arterial blood by [place] [employer] angelica Pulse oximetry Branch Systolic blood 2022-04-08 19:24:00 134 mm[Hg] Univer [facility]ity of pressure [place] [facility] Diastolic blood 2022-04-08 19:24:00 73 mm[Hg] Unive rsity of pressure [place] [facility] Heart rate 2022-04-08 19:24:00 73 /min [facility] [place] [facility] Body height 2022-04-08 19:24:00 157.5 cm [facility] [place] [facility] Body weight 2022-04-08 19:24:00 64.864 kg [facility] [place] [facility] BMI 2022-04-08 19:24:00 26.16 kg/m2 [facility] [place] [facility] Systolic blood 2022-04-11 15:24:00 136 mm[Hg] Univer [facility]ity of pressure [place] [facility] Diastolic blood 2022-04-11 15:24:00 76 mm[Hg] [facility]ive rsity of pressure [place] [facility] Heart rate 2022-04-11 15:24:00 83 /min [facility] [place] [facility] Body height 2022-04-11 15:24:00 157.5 cm [facility] [place] [facility] Body weight 2022-04-11 15:24:00 63.504 kg [facility] [place] [facility] BMI 2022-04-11 15:24:00 25.61 kg/m2 [facility] [place] [facility] Oxygen saturation in 2022-04-11 15:24:00 97 /min [facility] Arterial blood by [place] [facility] Pulse oximetry Branch Systolic blood 2022-03-11 20:35:00 136 mm[Hg] [facility]iver [facility]ity of pressure [place] [facility] Diastolic blood 2022-03-11 20:35:00 76 mm[Hg] [facility]ive rsity of pressure [place] [facility] Heart rate 2022-03-11 20:33:00 83 /min [facility] [place] [facility] Body temperature 2022-03-11 20:33:00 37.11 Monique [facility] [place] [facility] Body height 2022-03-11 20:33:00 157.5 cm [facility] [place] [facility] Body weight 2022-03-11 20:33:00 63.504 kg [facility] [place] [facility] BMI 2022-03-11 20:33:00 25.61 kg/m2 [facility] [place] [facility] Oxygen saturation in 2022-03-11 20:33:00 97 /min [facility] of Arterial blood by [place] [employer] Pulse oximetry Branch Systolic blood 2022-03-11 14:27:00 145 mm[Hg] Univer [facility]ity of pressure [place] [facility] Diastolic blood 2022-03-11 14:27:00 68 mm[Hg] [facility]ive rsity of pressure [place] [facility] Heart rate 2022-03-11 14:26:00 78 /min [facility] Body height 2022-03-11 14:26:00 157.5 cm [facility] Body weight 2022-03-11 14:26:00 61.236 kg [facility] BMI 2022-03-11 14:26:00 24.69 kg/m2 [facility] Oxygen saturation in 2022-03-11 14:26:00 99 /min [facility] of Arterial blood by [place] [employer] angelica Pulse oximetry Branch Systolic blood 2022-02-25 23:37:00 131 mm[Hg] [facility] Diastolic blood 2022-02-25 23:37:00 85 mm[Hg] [facility] Heart rate 2022-02-25 23:37:00 70 /min [facility] Body temperature 2022-02-25 23:37:00 36.83 Monique [facility] Respiratory rate 2022-02-25 23:37:00 18 /min [facility] Body height 2022-02-25 23:37:00 157.5 cm [facility] Body weight 2022-02-25 23:37:00 58.968 kg [facility] BMI 2022-02-25 23:37:00 23.78 kg/m2 [facility] Oxygen saturation in 2022-02-25 23:37:00 99 /min [facility] [place] [facility] Pulse oximetry Branch Systolic blood 2022-01-21 21:34:00 133 mm[Hg] [facility] Diastolic blood 2022-01-21 21:34:00 75 mm[Hg] [facility] Heart rate 2022-01-21 21:34:00 80 /min [facility] Body temperature 2022-01-21 21:34:00 36.5 Monique [facility] Body height 2022-01-21 21:34:00 144.8 cm [facility] Body weight 2022-01-21 21:34:00 62.596 kg [facility] BMI 2022-01-21 21:34:00 29.86 kg/m2 [facility] Oxygen saturation in 2022-01-21 21:34:00 96 /min [facility] [place] [facility] Pulse oximetry Branch Systolic blood 2021-12-24 20:33:00 135 mm[Hg] [facility] Diastolic blood 2021-12-24 20:33:00 65 mm[Hg] [facility] Heart rate 2021-12-24 20:33:00 73 /min [facility] Body temperature 2021-12-24 20:33:00 36.56 Monique [facility] Body height 2021-12-24 20:33:00 144.8 cm [facility] Body weight 2021-12-24 20:33:00 62.596 kg [facility] BMI 2021-12-24 20:33:00 29.86 kg/m2 [facility] Oxygen saturation in 2021-12-24 20:33:00 96 /min [facility] angelica Pulse oximetry Branch Systolic blood 2021-12-03 18:46:00 148 mm[Hg] [facility] Diastolic blood 2021-12-03 18:46:00 70 mm[Hg] [facility] Heart rate 2021-12-03 18:45:00 97 /min [facility] Body temperature 2021-12-03 18:45:00 37.33 Monique [facility] Body height 2021-12-03 18:45:00 144.8 cm [facility] Body weight 2021-12-03 18:45:00 62.143 kg [facility] BMI 2021-12-03 18:45:00 29.65 kg/m2 [facility] Oxygen saturation in 2021-12-03 18:45:00 96 /min [facility] Arterial blood by [facility] Pulse oximetry Branch Systolic blood 2021-11-26 20:46:00 158 mm[Hg] [facility] Diastolic blood 2021-11-26 20:46:00 72 mm[Hg] [facility] Heart rate 2021-11-26 20:46:00 98 /min [facility] Body height 2021-11-26 20:46:00 160 cm [facility] Body weight 2021-11-26 20:46:00 61.689 kg [facility] BMI 2021-11-26 20:46:00 24.09 kg/m2 [facility] Systolic blood 2021-11-02 18:10:00 152 mm[Hg] [facility] Diastolic blood 2021-11-02 18:10:00 73 mm[Hg] [facility] Heart rate 2021-11-02 18:10:00 83 /min [facility] Body height 2021-11-02 18:10:00 160 cm [facility] Body weight 2021-11-02 18:10:00 61.689 kg [facility] BMI 2021-11-02 18:10:00 24.09 kg/m2 [facility] Oxygen saturation in 2021-11-02 18:10:00 95 /min [facility] [place] [facility] Pulse oximetry Branch Systolic blood 2021-10-25 20:11:00 138 mm[Hg] [facility] Diastolic blood 2021-10-25 20:11:00 64 mm[Hg] [facility] Heart rate 2021-10-25 20:11:00 64 /min [facility] Body temperature 2021-10-25 20:11:00 36.5 Monique [facility] Body height 2021-10-25 20:11:00 160 cm [facility] Body weight 2021-10-25 20:11:00 61.689 kg [facility] BMI 2021-10-25 20:11:00 24.09 kg/m2 [facility] Oxygen saturation in 2021-10-25 20:11:00 96 /min [facility] Arterial blood by [facility] Pulse oximetry Branch Systolic blood 2021-07-09 21:36:00 132 mm[Hg] [facility] [place] [facility] Diastolic blood 2021-07-09 21:36:00 65 mm[Hg] [facility] Body temperature 2021-07-09 21:36:00 36.33 Monique [facility] Heart rate 2021-07-09 21:10:00 73 /min [facility] Body height 2021-07-09 21:10:00 142.2 cm [facility] Body weight 2021-07-09 21:10:00 61.598 kg [facility] BMI 2021-07-09 21:10:00 30.45 kg/m2 [facility] Oxygen saturation in 2021-07-09 21:10:00 96 /min [facility] Arterial blood by [facility] angelica Pulse oximetry Branch HEIGHT 2019-07-08 00:00:00 147.3 cm WEIGHT 2019-07-08 00:00:00 57.743 kg Oxygen saturation in 2022-06-01 14:45:00 93 /min [facility] Arterial blood by Medical Ce nter Pulse oximetry Heart rate 2022-06-01 12:37:00 80 /min [facility] Body temperature 2022-06-01 10:47:08 36.56 Monique [facility] Systolic blood 2022-06-01 10:46:30 135 mm[Hg] [facility] Diastolic blood 2022-06-01 10:46:30 63 mm[Hg] [facility] Respiratory rate 2022-06-01 09:00:00 17 /min [facility] Body weight 2022-06-01 05:00:00 64.638 kg [facility] BMI 2022-06-01 05:00:00 26.06 kg/m2 [facility] Body height 2022-05-28 08:00:00 157.5 cm [facility] pulse rate 2019-07-01 08:14:01 80 /min [facility], 2019-07-01 08:14:01 71 mm[Hg] Leg[facility] diastolic Health blood pressure, 2019-07-01 08:14:01 171 mm[Hg] Legac [facility] systolic Health pulse rate 2019-06-25 09:35:00 76 /min [facility], 2019-06-25 09:35:00 77 mm[Hg] Legac [facility] diastolic Health blood pressure, 2019-06-25 09:35:00 153 mm[Hg] Legac [facility] systolic Health Procedures Procedure Date / Time Performing Clinician Source Performed FLU 2022-11-11 20:48:37 [facility] VACC([id number]),65+YR,0.5 Medica l Branch ML,IM,ADJUVANTED,QUAD(FLU AD) CBC WITH DIFF 2022-09-08 16:33:00 [facility] COMP. METABOLIC PANEL 2022-09-08 16:33:00 [facility] ([id number]) [facility] N-TERMINAL PRO-BNP 2022-09-08 16:33:00 Ceci Lo [facility] HOME HEALTH - OTHER 2022-08-08 05:01:00 Alejo Webb [facility] [place] [facility] EXTERNAL PROVIDER RECORDS 2022-07-21 05:01:00 Doctor López [facility] [place] [facility] - OTHER 2022-07-11 05:01:00 Alejo Webb [facility] [place] [facility] - OTHER 2022-07-01 05:01:00 Alejo Webb [facility] Name Medical Branch [facility] - OTHER 2022-06-28 05:01:00 Doctor Alejo López [facility] [place] [facility] - OTHER 2022-06-24 05:01:00 Alejo Webb [facility] [place] NM MYOCARDIUM PERFUSION 2022-06-23 16:20:00 Lo, Sendil [facility] STRESS AND REST Medical Branch NUCLEAR STRESS TEST 2022-06-23 16:20:00 Lo, Sendil [facility] CARDIOLOGY (DO NOT SCHED) Medica l Branch NM MYOCARDIUM PERFUSION 2022-06-23 16:20:00 Lo, Sendil [facility] STRESS AND REST Medical Branch NUCLEAR STRESS TEST 2022-06-23 16:20:00 Lo, Sendil [facility] CARDIOLOGY (DO NOT SCHED) Medica l Branch NM MYOCARDIUM PERFUSION 2022-06-23 16:20:00 Lo, Sendil [facility] STRESS AND REST Medical Branch NUCLEAR STRESS TEST 2022-06-23 16:20:00 Lo, Sendil [facility] CARDIOLOGY (DO NOT SCHED) Medica l Branch NM MYOCARDIUM PERFUSION 2022-06-23 16:20:00 Lo, Sendil [facility] STRESS AND REST Medical Branch NUCLEAR STRESS TEST 2022-06-23 16:20:00 Lo, Sendil [facility] CARDIOLOGY (DO NOT SCHED) Medica l Branch HOME HEALTH - OTHER 2022-06-21 05:01:00 Alejo Webb [facility] [place] [facility] BASIC METABOLIC PANEL 2022-06-11 13:49:00 Lo, Sendil [facility] (NA, K, CL, CO2, GLUCOSE, Medica l Branch BUN, CREATININE, CA) N-TERMINAL PRO-BNP 2022-06-11 13:49:00 [facility] COMP. METABOLIC PANEL 2022-06-10 14:37:00 Ceci oL Un [facility] ([id number]) [facility] N-TERMINAL PRO-BNP 2022-06-10 14:37:00 [facility] HOME HEALTH - OTHER 2022-06-07 05:01:00 Doctor Unassigned, [facility] [place] [facility] POCT-GLUCOSE METER 2022-06-01 10:49:00 Nelly Valerie [facility] POCT-GLUCOSE METER 2022-06-01 08:17:00 Valerie Goodwin [facility] BASIC METABOLIC PANEL 2022-06-01 04:34:00 Prashanth [facility] CBC W/PLT COUNT & AUTO 2022-06-01 04:34:00 Prashanth [facility] DIFFERENTIAL Center MAGNESIUM 2022-06-01 04:34:00 Prashanth [facility] CBC W/PLT COUNT & AUTO 2022-06-01 04:34:00 Prashanth [facility] POCT-GLUCOSE METER 2022-05-31 22:07:00 Radha [facility] POCT-GLUCOSE METER 2022-05-31 18:23:00 Radha [facility] POCT-GLUCOSE METER 2022-05-31 12:07:00 Radha [facility] POCT-GLUCOSE METER 2022-05-31 08:50:00 Radha [facility] BASIC METABOLIC PANEL 2022-05-31 05:26:00 Prashanth [facility] CBC W/PLT COUNT & AUTO 2022-05-31 05:26:00 Prashanth [facility] DIFFERENTIAL Center MAGNESIUM 2022-05-31 05:26:00 Prashanth [facility] PHOSPHORUS 2022-05-31 05:26:00 Prashanth [facility] CBC W/PLT COUNT & AUTO 2022-05-31 05:26:00 Prashanth [facility] POCT-GLUCOSE METER 2022-05-30 20:14:00 Radha [facility] POCT-GLUCOSE METER 2022-05-30 17:59:00 Radha [facility] POCT-GLUCOSE METER 2022-05-30 13:04:00 [facility]SE [facility] 2022-05-30 08:38:00 [facility] BASIC METABOLIC PANEL 2022-05-30 04:57:00 Prashanth [facility] CBC W/PLT COUNT & AUTO 2022-05-30 04:57:00 Prashanth [facility] MAGNESIUM 2022-05-30 04:57:00 Prashanth [facility] PHOSPHORUS 2022-05-30 04:57:00 [facility] W/[facility]T [facility] & AUTO 2022-05-30 04:57:00 Prashanth [facility] POCT-GLUCOSE METER 2022-05-30 00:09:00 Radha [facility] POCT-GLUCOSE METER 2022-05-29 16:43:00 [facility] POCT-GLUCOSE METER 2022-05-29 14:48:00 [facility] BASIC METABOLIC PANEL 2022-05-29 03:47:00 [facility] CBC W/PLT COUNT & AUTO 2022-05-29 03:47:00 Prashanth [facility] MAGNESIUM 2022-05-29 03:47:00 Prashanth [facility] PHOSPHORUS 2022-05-29 03:47:00 Prashanth [facility] CBC W/PLT COUNT & AUTO 2022-05-29 03:47:00 Prashanth, [facility] POCT-GLUCOSE METER 2022-05-28 23:12:00 Sharyn Quispe [facility] HIGH SENSITIVITY TROPONIN 2022-05-28 18:25:00 Prashanth [facility] POCT-GLUCOSE METER 2022-05-28 17:04:00 Sharyn Quispe [facility] 2D ECHO W/ DOPPLER 2022-05-28 14:38:34 [facility] [place] POCT-GLUCOSE METER 2022-05-28 12:00:00 [facility] HIGH SENSITIVITY TROPONIN 2022-05-28 11:02:00 [facility]FREE T4 IF INDICATED 2022-05-28 11:02:00 [facility] Kayla T [facility] CBC W/PLT COUNT & AUTO 2022-05-28 11:02:00 [facility] Kayla T [facility] CBC W/PLT COUNT & AUTO 2022-05-28 11:02:00 [facility] RESPIRATORY PANEL 2022-05-28 09:47:00 Prashanth, [facility] PROCALCITONIN 2022-05-28 09:43:00 [facility] HIGH SENSITIVITY TROPONIN 2022-05-28 09:43:00 [facility] B-TYPE NATRIURETIC FACTOR 2022-05-28 09:43:00 [facility] (BNP) [place] HEMOGLOBIN A1C 2022-05-28 09:43:00 [facility] ECG 12-LEAD 2022-05-28 08:36:59 [facility] 12-LEAD 2022-05-28 08:36:59 Unknown, Hl7 [facility] ECG 12-LEAD 2022-05-28 08:36:59 Unknown, Hl7 [facility] XR CHEST 1 VIEW PORTABLE 2022-05-28 08:33:00 Prashanth [facility] BLOOD GAS, ARTERIAL 2022-05-28 08:28:00 Prashanth [facility] COMPREHENSIVE METABOLIC 2022-05-28 08:27:00 Prashanth [facility] PANEL Center MAGNESIUM 2022-05-28 08:27:00 Prashanth [facility] PHOSPHORUS 2022-05-28 08:27:00 [facility] LACTIC ACID, VENOUS 2022-05-28 08:27:00 [facility]/INR 2022-05-28 08:27:00 Prashanth [facility] FIBRINOGEN 2022-05-28 08:27:00 Prashanth [facility] EKG-SCANNED 2022-05-28 00:00:00 Provider, [facility] HB ECG ROUTINE & RHYTHM 2022-05-25 19:30:49 Ceci Lo [facility] PNEUMOCOCCAL 20 CONJUGATE 2022-05-17 19:39:37 Angela Cunningham [facility] (PREVNAR 20) VACCINE Medical Bra [facility] ASSIGNMENT OF BENEFITS 2022-05-17 18:46:13 Doctor Un[facility]igned, [facility] [place] [facility] EXTERNAL PROVIDER RECORDS 2022-04-12 06:01:00 Doctor Ilianassigned, [facility] [place] [facility] REFERRAL- 2022-04-03 06:01:00 Doctor Unassregine, [facility] REQUEST/RESPONSE [place] [place] [facility] CBC WITH DIFF 2022-03-11 21:42:00 Angela Cunningham [place] [facility] URINE CULTURE 2022-03-11 21:42:00 Chary Donald [facility] REFERRAL- 2022-02-23 06:01:00 Doctor Unassigned, [facility] REQUEST/RESPONSE [place] [place] [facility] EMERGENCY SERVICES 2021-12-31 06:01:00 Doctor Rene, [facility] AGREEMENTS AND [place] [place] [facility] AUTHORIZATIONS FLU 2021-12-24 21:05:18 Chary Donald [facility] VACC(),65+YR,0.5 Medica l Branch ML,IM,ADJUVANTED,QUAD(FLU AD) MR BRAIN WO CONTRAST 2021-11-19 15:41:[address] [facility] EXTERNAL PROVIDER RECORDS 2021-11-18 05:01:00 Doctor Rene, [facility] [place] [facility] [place] EXTERNAL PROVIDER RECORDS 2021-11-01 05:01:00 Doctor Rene, [facility] [place] [place] [facility] AUTHORIZATION TO RELEASE 2021-10-25 05:01:00 Doctor López [facility] PHI TO [facility] [place] [facility] [place] URINALYSIS 2021-09-03 13:22:00 Chary Donald [facility] LIPASE 2021-09-03 13:08:00 Chary Donald [facility] COMP. METABOLIC PANEL 2021-09-03 13:08:00 Chary Donald [facility] ([id number]) [facility] CBC WITH DIFF 2021-09-03 13:08:00 Chary Donald [facility] Plan of Care Planned Activity Planned [...] - [facility] 00:00:00 Moderna series) [code Medica l Center = COVID-19 VACCINE (2 - Moderna series)] Future Scheduled 2021-02-13 DEPRESSION SCREENING [...] [facility] SCAN[facility] Medical Center Encounters Start End Encounter Admission Attending Care Care Encounter Source Date/Time Date/Time Type Type Clinicians Facility Department ID 2020-11-17 Inpatient ER GUILLERMO [facility] Urology [id number] [facility] 14:52:09 LILIANA 2023-03-23 2023-03-23 Outpatient R [facility] [id number] [facility] 14:30:00 14:30:00 karina GALINDO [facility] 2023-01-11 2023-01-11 Outpatient R ANGELA [facility]ING[facility] [id number] Univers 16:20:00 16:20:00 ANGELA CUNNINGHAM [facility] 2023-01-03 2023-01-03 Telephone [facility] 1.2.840.114 [id number] Univers 00:00:00 00:00:00 [place] 350.1.13.10 ity of [place] [id number] [address] OFFICE BUILDING 2022-12-30 2022-12-30 Telephone [facility] 1.2.840.114 [id number] Univers 00:00:00 00:00:00 MateoCARROLL caal 350.1.13.10 ity of [place] [id number] [address] OFFICE BUILDING 2022-12-28 2022-12-28 [id number] Univers 15:57:21 23:59:00 karina GALINDO [facility] 2022-12-28 2022-12-28 [facility] 1.2.840.114 [id number] Univers 15:57:21 23:59:00 Encounter [place], [facility] 350.1.13.10 ity of [place] [id number] [facility] [address] [place] OFFICE BUILDING 2022-12-27 2022-12-27 Mixer Operator Tablets Therapist, Adc Respiratory [facility] 1.2.840.114 [id number] Univers 11:00:00 11:30:00 Visit Johnnie Finney ROBBINYASH 3 50.1.13.10 ity of [place] [id number] [facility] [address] [place] 2022-12-27 2022-12-27 [id number] Univers 11:00:00 11:00:00 karina GALINDO [facility] 2022-12-26 2022-12-26 [facility] [id number] Univers 10:00:00 14:42:58 SENDIL [facility] 2022-12-26 2022-12-26 Office [facility] 1.2.840.114 [id number] Univers 10:00:00 14:42:58 Visit Sendbekah ALBRECHT 350.1.13.10 ity of [place].2.7.2.686 [place] [facility] [id number] [facility] 059 [facility] 2022-12-23 2022-12-23 Telephone [facility] 1.2.840.114 [id number] Univers 00:00:00 00:00:00 CARROLL Galindo 350.1.13.10 ity of TeodoroDenisha [place]ANN[place].2.7.2.686 [place] [id number] [facility] [address] [place] OFFICE [facility] 2022-12-21 2022-12-21 [facility] [id number] Univers 16:15:00 16:41:43 karina GALINDO [facility] 2022-12-21 2022-12-21 Mixer Operator Tablets Lab, Thom - Db [facility] 1.2.840.1 [id number] Univers 16:15:00 16:30:00 Visit Johnnie Finney HEALTH 35 0.1.13.10 ity of [place] 4.2.7.2.686 Kilo as KRZYSZTOF?BLEA [id number] Nm salvatore ESTRADA [address] [facility] OFFICE BUILDING 2022-12-19 2022-12-19 Telephone [facility] 1.2.840.114 [id number] Univers 00:00:00 00:00:00 CARROLL Galindo 350.1.13.10 ity of [place].2.[place] [id number] [address] OFFICE BUILDING 2022-12-12 2022-12-12 Outpatient R ANGELA CUNNINGHAM [facility] [id number] Univers 10:20:00 10:20:00 ANGELA CUNNINGHAM [facility] 2022-12-05 2022-12-05 Outpatient R [facility] [id number] Univers 15:30:00 16:43:04 karina GALINDO [facility] 2022-12-05 2022-12-05 Office [facility] 1.2.840.114 [id number] Univers 15:30:00 16:43:04 Visit CARROLL Galindo 350.1.13.10 ity of [place] 4.2.7.2.686 [place] [id number] [address] OFFICE [facility] 2022-12-02 2022-12-02 Outpatient R ANGELA CUNNINGHAM [facility] [id number] Univers 16:20:00 17:22:13 ANGELA CUNNINGHAM [facility] 2022-12-02 2022-12-02 Office [facility] 1.2.840.114 [id number] Univers 16:20:00 17:22:13 Visit [facility] 350.1.13.10 ity of [place] 4.2.7.2.686 Kilo as KRZYSZTOF?BLEA [id number] Nm salvatore [facility] 044 [facility] OFFICE BUILDING 2022-12-01 2022-12-01 Outpatient R ANGELA CUNNINGHAM [facility] [id number] Univers 15:20:00 15:20:00 ANGELA CUNNINGHAM [facility] 2022-11-29 2022-11-29 Refill [facility] 1.2.840.114 [id number] Univers 00:00:00 00:00:00 [facility] 350.1.13.10 ity [facility] 4.2.7.2.686 Kilo as KRZYSZTOF?BLEA [id number] [address] MEDICAL OFFICE [facility] 2022-11-28 2022-11-28 Refill [facility] 1.2.840.114 [id number] Univers 00:00:00 00:00:00 [facility] 350.1.13.10 ity of [place] 4.2.7.2.686 Kilo as KRZYSZTOF?BLEA [id number] [address] OFFICE [facility] 2022-11-13 2022-11-13 Patient Doctor LILLIANA 1.2.840.114 [id number] Univers 00:00:00 00:00:00 Secure Msg Unassigned, MACKENZIE 350.1.13.10 [facility] 4.2.7.2.686 Kilo as [id number] [address] 2022-11-11 2022-11-11 Mixer Operator Tablets Lab, Thom - [facility] 1.2.840.1 [id number] [facility] 16:15:00 16:26:09 Visit Angela Cunningham [facility] 350.1.13.10 ity of [place] 4.2.7.2.686 Kilo as KRZYSZTOF?BLEA [id number] [address] MEDICAL OFFICE [facility] 2022-11-11 2022-11-11 Outpatient R TASIA [facility] [id number] Univers 14:20:00 16:01:27 ANGELA CUNNINGHAM karen [facility] 2022-11-11 2022-11-11 Office [facility] 1.2.840.114 [id number] [facility] 14:20:00 16:01:27 Visit [facility] 350.1.13.10 ity of [place] 4.2.7.2.686 Kilo as KRZYSZTOF?BLEA [id number] Me dical KNEY [address] [place] [address] 2022-11-03 2022-11-03 Telephone [facility] [id number] Univers 00:00:00 00:00:00 Angela [facility] 350.1.13.10 ity of [place] 4.2.7.2.686 Kilo as KRZYSZTOF?BLEA [id number] Nm salvtaore ESTRADA [address] [place] [address] 2022-11-01 2022-11-01 Outpatient R ANGELA CUNNINGHAM [facility] [id number] Univers 10:00:00 10:00:00 ANGELA CUNNINGHAM [facility] 2022-10-28 2022-10-28 Telephone [facility] 1.2.456.125 [id number] Univers 00:00:00 00:00:00 Ceci ALBRECHT 350.1.13.10 ity of [place] [phone] [place] 900409 [facility] 2022-10-26 2022-10-26 Mixer Operator Tablets 2, Adc Lab [facility] 1.2.840.114 [id number] Univers 11:15:00 11:30:00 Visit Ceci Lo 350.1.13. 10 ity of [place] [phone] Nm salvatore [facility] 353 [facility] 2022-10-26 2022-10-26 Outpatient R TERESITA [facility] [id number] Univers 10:00:00 10:48:18 SENDIL karina [facility] 2022-10-26 2022-10-26 Office [facility] 1.2.840.114 [id number] Univers 10:00:00 10:48:18 Visit Ceci ALBRECHT 350.1.13.10 ity of [place] [phone] [place] 912969 [facility] 2022-10-07 2022-10-07 Outpatient R ANGELA CUNNINGHAM [facility] [id number] Univers 10:20:00 10:20:00 ANGELA CUNNINGHAM [facility] 2022-09-27 2022-09-27 Refill [facility] 1.2.840.114 [id number] Univers 00:00:00 00:00:00 Angela HEALTH 350.1.13.10 ity of [facility] 4.2.7.2.686 [place]ilo as KRZYSZTOF?BLEA [phone] [facility] 044 [facility] OFFICE [facility] 2022-09-22 2022-09-22 Outpatient R TERESITA [facility] [id number] Univers 15:00:00 16:06:41 SENDIL [facility] 2022-09-22 2022-09-22 Office [facility] 1.2.840.114 [id number] Univers 15:00:00 16:06:41 Visit Sendbekah ALBRECHT 350.1.13.10 ity [facility] [place] [phone] [facility] NAL 9 [facility] 2022-09-13 2022-09-13 Patient Doctor [facility] 1.2.840.114 [id number] Univers 00:00:00 00:00:00 Secure Msg Unassigned, HEALTH 350.1.13.10 ity of [place] 4.2.7.2.686 Kilo as KRZYSZTOF?BLEA [phone] [address] OFFICE [facility] 2022-09-12 2022-09-12 Telephone Teresita [facility] 1.2.298.052 [id number] Univers 00:00:00 00:00:00 Sendil Courtney [facility] 350.1.13.10 ity [facility] [place] [phone] Nm dicmi NAL 059 [facility] 2022-09-08 2022-09-08 Mixer Operator Tablets Lab, Ang - Db [facility] 1.2.840.1 14 [id number] Univers 11:30:00 11:41:31 Visit Angela Cunningham HEALTH 350.1.13.10 ity of [facility] 4.2.7.2.686 [place] as KRZYSZTOF?BLEA [phone] [facility] [address] MEDICAL OFFICE [facility] 2022-09-08 2022-09-08 Outpatient R OCTAVIO ANGELA [facility] [id number] Univers 10:00:00 11:13:59 TASIA CUNNINGHAMINE ity [facility] 2022-09-08 2022-09-08 Office [facility] 1.2.840.114 [id number] Univers 10:00:00 11:13:59 Visit [facility] 350.1.13.10 ity of [place] 4.2.7.2.686 [place]ilo as KRZYSZTOF?BLEA [phone] [facility] 044 [facility] OFFICE [facility] 2022-08-09 2022-08-09 Outpatient R TERESITA [facility] [id number] Univers 13:00:00 14:10:05 SENDIL ity [facility] 2022-08-09 2022-08-09 Office [facility] 1.2.840.114 [id number] Univers 13:00:00 14:10:05 Visit Ceci [facility] 350.1.13.10 ity of [place] [phone] [facility] 059 [facility] 2022-08-09 2022-08-09 Office [facility] 1.2.840.114 [id number] Univers 10:00:00 11:36:08 Visit [facility] 350.1.13.10 ity of [place] 4.2.7.2.686 Kilo as KRZYSZTOF?BLEA [phone] [address] MEDICAL OFFICE [facility] 2022-08-08 2022-08-08 Orders Doctor LILLIANA 1.2.840.114 [id number] Univers 00:00:00 00:00:00 Only Unassigned, MACKENZIE 350.1.13.10 ity of [place] [facility] 4.2.7.2.686 Kilo as [phone] [address] 2022-08-04 2022-08-04 Refill [facility] 1.2.840.114 [id number] Univers 00:00:00 00:00:00 Angela HEALTH 350.1.13.10 ity of [place] 4.2.7.2.686 Kilo as KRZYSZTOF?BLEA [phone] [address] OFFICE [facility] 2022-07-27 2022-07-27 Telephone Teresita [facility] 1.2.444.047 [id number] Univers 00:00:00 00:00:00 Sendbekah [facility] 350.1.13.10 ity of [place] [phone] [facility] NAL 059 [facility] 2022-07-21 2022-07-21 Orders Doctor LILLIANA 1.2.840.114 [id number] Univers 00:00:00 00:00:00 Only Unassigned, MACKENZIE 350.1.13.10 [facility] 4.2.7.2.686 Kilo as [phone] [address] 2022-07-18 2022-07-18 Refill [facility] 1.2.840.114 [id number] Univers 00:00:00 00:00:00 [facility] 350.1.13.10 ity of [place] 4.2.7.2.686 Kilo as KRZYSZTOF?BLEA [phone] [address] OFFICE [facility] 2022-07-13 2022-07-13 Patient [facility] 1.2.840.114 [id number] Univers 00:00:00 00:00:00 [facility] 350.1.13.10 ity of [place] 4.2.7.2.686 Kilo as KRZYSZTOF?BLEA [phone] [address] OFFICE [facility] 2022-07-12 2022-07-12 Outpatient R TERESITA [facility] [id number] Univers 14:00:00 16:32:11 [facility]22-07-12 2022-07-12 Office [facility] 1.2.840.114 [id number] Univers 14:00:00 16:32:11 Visit Sendbekah [facility] 350.1.13.10 ity of [place] [phone] Nm dical NAL 059 [facility] 2022-07-12 2022-07-12 Telephone Teresita [facility] 1.2.522.492 [id number] Univers 00:00:00 00:00:00 Sendbekah BritanyGertrudeTyrellGertrude SIEGELYASH 350.1.13.10 ity of [place] [id number] Nm dicmi NAL 9 [facility] 2022-07-11 2022-07-11 Orders Doctor TIJERINA 1.2.840.114 [id number] Univers 00:00:00 00:00:00 Only Unassigned, MACKENZIE 350.1.13.10 [facility] 4.2.7.2.686 Kilo as [phone] [address] 2022-07-08 2022-07-08 Mixer Operator Tablets Lab, [facility] 1.2.840.1 14 [id number] Univers 09:00:00 09:15:00 [facility] 350.1.13.10 ity of [place] 4.2.7.2.686 Kilo as KRZYSZTOF?BLEA [phone] [facility] OFFICE [facility] 2022-07-08 2022-07-08 Outpatient R ANGELA CUNNINGHAM [facility] [id number] Univers 09:00:00 09:00:00 ANGELA CUNNINGHAM [facility] 2022-07-08 2022-07-08 Refill [facility] 1.2.840.114 [id number] Univers 00:00:00 00:00:00 [facility] 350.1.13.10 ity of [place] 4.2.7.2.686 Kilo as KRZYSZTOF?BLEA [phone] [facility] 044 [facility] OFFICE [facility] 2022-07-01 2022-07-01 Outpatient R ANGELA CUNNINGHAM [facility] [id number] Univers 11:20:00 11:20:00 ANGELA CUNNINGHAM [facility] 2022-07-01 2022-07-01 Orders Doctor TIJERINA 1.2.840.114 [id number] Univers 00:00:00 00:00:00 Only Unassigned, MACKENZIE 350.1.13.10 ity of [place] [facility] 4.2.7.2.686 Kilo as [phone] [address] 2022-06-28 2022-06-28 Outpatient R ANGELA CUNNINGHAM [facility] [id number] [facility] 09:20:00 10:19:27 ANGELA CUNNINGHAM itkaren [facility] 2022-06-28 2022-06-28 Office [facility] 1.2.840.114 [id number] [facility] 09:20:00 10:19:27 Visit [facility] 350.1.13.10 ity of [place] 4.2.7.2.686 Kilo as KRZYSZTOF?BLEA [phone] [address] OFFICE [facility] 2022-06-28 2022-06-28 Telephone [facility] 1.2.694.193 [id number] Univers 00:00:00 00:00:00 [facility] 350.1.13.10 ity of [place] 4.2.7.2.686 Kilo as KRZYSZTOF?BLEA [phone] [address] OFFICE [facility] 2022-06-28 2022-06-28 Orders Doctor LILLIANA 1.2.840.114 [id number] Univers 00:00:00 00:00:00 Only Unassigned, MACKENZIE 350.1.13.10 ity of [place] [facility] 4.2.7.2.686 Kilo as [phone] [address] 2022-06-24 2022-06-24 Telephone [facility] 1.2.448.662 [id number] Univers 00:00:00 00:00:00 Sendil Courtney ALBRECHT 350.1.13.10 ity of [place] [phone] [place] [address]409 [facility] 2022-06-24 2022-06-24 Orders Doctor LILLIANA 1.2.840.114 [id number] Univers 00:00:00 00:00:00 Only Unassigned, MACKENZIE 350.1.13.10 ity of [place] [facility] 4.2.7.2.686 Kilo as [id number] [facility] [address] 2022-06-23 2022-06-23 [facility] 1.2.840.114 [id number] Univers 08:13:16 23:59:00 Encounter Sendil Courtney ALBRECHT 350.1.13.10 ity of [facility] 4.2.7.2.[place] [id number] [facility] [address] 2022-06-23 2022-06-23 [facility] 1.2.840.114 [id number] Univers 08:12:54 08:12:54 Encounter Sendil Courtney ALBRECHT 350.1.13.10 ity [facility] [place]2.[place] [id number] [facility] [address] 2022-06-23 2022-06-23 [facility] 1.2.840.114 [id number] Univers 08:12:41 08:12:41 Encounter Sendil Courtney ALBRECHT 350.1.13.10 ity of [facility] 4.2.7.2.[place] [id number] [facility] [address] 2022-06-23 2022-06-23 [facility] [id number] Univers 08:12:25 08:11:00 SENDIL ity of [facility] 2022-06-23 2022-06-23 [facility] 1.2.840.114 [id number] Univers 08:00:00 08:11:00 Encounter Sendil Courtney ALBRECHT 350.1.13.10 ity of [facility] 4.2.[place] [id number] [facility] [address] 2022-06-21 2022-06-21 Out[facility] [id number] Univers 09:00:00 09:00:00 SENDIL ity of [facility] 2022-06-21 2022-06-21 [facility] 1.2.588.682 [id number] Univers 00:00:00 00:00:00 Sendil Courtney ALBRECHT 350.1.13.10 ity of [facility] [place] [phone] [facility] 059 [facility] 2022-06-21 2022-06-21 Orders Doctor LILLIANA 1.2.840.114 [id number] Univers 00:00:00 00:00:00 Only Unassigned, MACKENZIE 350.1.13.10 ity of [place] [facility] 4.2.7.2.686 Kilo as [phone] [address] 2022-06-20 2022-06-20 Mixer Operator Tablets Abdiel, Adc Lab Main [facility] 1.2.8 40.114 [id number] Univers 07:45:00 08:00:00 Visit Ceci Lo 350.1.13. 10 ity of [place].2.[place] [id number] [facility] 353 [facility] 2022-06-20 2022-06-20 Outpatient R TERESITA [facility] [id number] Univers 07:45:00 07:45:00 SENDIL ity of [facility] 2022-06-16 2022-06-16 [facility] 1.2.366.880 [id number] Univers 00:00:00 00:00:00 Ceci ALBRECHT 350.1.13.10 ity of [place].2.[place] [id number] [address] 2022-06-16 2022-06-16 Telephone [facility] 1.2.669.037 [id number] Univers 00:00:00 00:00:00 Ceci ALBRECHT 350.1.13.10 ity of [facility] 4.2.7.2.[place] [phone] Nm dicAlexis [place] 912969 [facility] 2022-06-15 2022-06-15 Telephone [facility] 1.2.129.542 [id number] Univers 00:00:00 00:00:00 Ceci ALBRECHT 350.1.13.10 ity of [facility] 4.2.[place] [phone] Nm dical NAL 059 [facility] 2022-06-13 2022-06-13 Outpatient R TERESITA [facility] [id number] Univers 15:30:00 15:30:00 SENDIL ity [facility] 2022-06-13 2022-06-13 Telephone [facility] 1.2.993.646 [id number] Univers 00:00:00 00:00:00 Sendil Courtney ALBRECHT 350.1.13.10 ity of [facility] 4.[place] [phone] [facility] NAL [address] [place] [address] 2022-06-11 2022-06-11 Mixer Operator Tablets Abdiel, Adc Lab Main [facility] 1.2.8 40.114 [id number] Univers 08:30:00 08:45:00 Visit Ceci Lo 350.1.13. 10 ity of [place].7.2.[place] [phone] [facility] NAL [address] [place] [address] 2022-06-11 2022-06-11 Outpatient R TERESITA [facility] [id number] Univers 08:30:00 08:30:00 SENDIL ity [facility] 2022-06-10 2022-06-10 Mixer Operator Tablets Abdiel, Adc Lab Main [facility] 1.2.8 40.114 [id number] Univers 09:15:00 09:30:00 Visit Ceci Lo 350.1.13. 10 ity of [place] 4.2.7.2.[place] [phone] Nm dical NAL [address] [place] [address] 2022-06-10 2022-06-10 [facility] [id number] Univers 09:15:00 09:15:00 SENDIL ity [facility] 2022-06-10 2022-06-10 Refill [facility] 1.2.840.114 [id number] Univers 00:00:00 00:00:00 [facility] 350.1.13.10 ity of [place] 4.2.7.2.686 Kilo as KRZYSZTOF?BLEA [id number] [address] OFFICE [facility] 2022-06-10 2022-06-10 Telephone Teresita [facility] 1.2.461.022 [id number] Univers 00:00:00 00:00:00 Sendil ArianneHGertrude [facility] 350.1.13.10 ity of [facility] 4.2.7.2.[place] [phone] [address] 2022-06-09 2022-06-09 Outpatient R TERESITA [facility] [id number] Univers 13:30:00 14:26:56 SENDIL karina [facility] 2022-06-09 2022-06-09 Office [facility] 1.2.840.114 [id number] Univers 13:30:00 14:26:56 Visit Ceci Valdez [place] 350.1.13.10 ity of [place].7.2.[place] [phone] [address] 2022-06-08 2022-06-08 Patient [facility] 1.2.840.114 [id number] Univers 00:00:00 00:00:00 Outreach [facility] 350.1.13.10 i ty of [place] 4.2.7.2.686 Kilo as KRZYSZTOF?BLEA [id number] [address] OFFICE [facility] 2022-06-07 2022-06-07 Outpatient R ANGELA CUNNINGHAM [facility] [id number] Univers 16:20:00 17:24:14 ANGELA CUNNINGHAM [facility] 2022-06-07 2022-06-07 Office [facility] 1.2.840.114 [id number] Univers 16:20:00 17:24:14 Visit [facility] 350.1.13.10 ity of [place] 4.2.7.2.686 Kilo as KRZYSZTOF?BLEA [id number] [address] OFFICE [facility] 2022-06-07 2022-06-07 Telephone Octavio [facility] 1.2.917.339 [id number] Univers 00:00:00 00:00:00 [facility] 350.1.13.10 ity of [facility] 4.2.7.2.686 Kilo as KRZYSZTOF?BLEA [id number] Nm dical ANDREA [address] MEDICAL OFFICE BUILDING 2022-06-07 2022-06-07 Orders Doctor LILLIANA 1.2.840.114 [id number] Univers 00:00:00 00:00:00 Only Unassigned, MACKENZIE 350.1.13.10 ity of [place] [facility] 4.2.7.2.686 Kilo as [phone] [address] 2022-06-02 2022-06-02 Outpatient R ANGELA CUNNINGHAM [facility] [id number] [facility] 14:20:00 14:20:00 [facility] 2022-05-28 2022-06-01 Inpatient ER [facility] Medical ICU 20 [id number] [facility] 07:43:00 15:42:00 VALERIE 2022-05-28 2022-06-01 [facility] [id number] [facility] 07:43:00 15:42:00 Encounter Kayla Hui, [facility] Catherine Garcia Kinjal M 2022-05-28 2022-06-01 [facility] Charokaren [facility] [id number] 07:43:00 15:42:00 [facility] Garcia Kinjal M 2022-06-01 2022-06-01 Outpatient Braulio LO [facility] [id number] Univers 15:30:00 15:30:00 SENDIL karina [facility] 2022-05-28 2022-05-28 Travel [facility] [id number] [facility] 00:[facility] 00:00:00 [facility] 2022-05-28 2022-05-28 Orders [facility] [id number] 00:00:00 00:00:00 Only [facility] 2022-05-28 2022-05-28 Travel [facility] [id number] [facility] 00:[facility] 00:00:00 [facility] 2022-05-28 2022-05-28 Orders [facility] [id number] 00:00:00 00:00:00 Only [facility] 2022-05-25 2022-05-25 Outpatient R TERESITA [facility] [id number] Univers 14:00:00 15:24:40 SENDIL [facility] 2022-05-25 2022-05-25 Office [facility] 1.2.840.114 [id number] Univers 14:00:00 15:24:40 Visit Ceci [facility] 350.1.13.10 ity of [place].2.[place] [id number] Nm dical NAL [address] [facility] 2022-05-17 2022-05-17 Outpatient R ANGELA CUNNINGHAM [facility] [id number] Univers 13:40:00 15:02:27 [facility] 2022-05-17 2022-05-17 Office [facility] 1.2.840.114 [id number] Univers 13:40:00 15:02:27 Visit [facility] 350.1.13.10 ity of [place] 4.2.7.2.686 Kilo as KRZYSZTOF?BLEA [phone] Nm dical KNEY [address] MEDICAL OFFICE BUILDING 2022-05-17 2022-05-17 Orders Doctor TIJERINA 1.2.840.114 [id number] Univers 00:00:00 00:00:00 Only Unassigned, MACKENZIE 350.1.13.10 ity of [place] [facility] 4.2.7.2.686 Kilo as [phone] [address] 2022-04-23 2022-04-23 Refill [facility] 1.2.840.114 [id number] Univers 00:00:00 00:00:00 [facility] 350.1.13.10 ity of [place] 4.2.7.2.686 Kilo as KRZYSZTOF?BLEA [id number] [facility] [address] MEDICAL OFFICE [facility] 2022-04-22 2022-04-22 Refill [facility] 1.2.840.114 [id number] Univers 00:00:00 00:00:00 Angela [facility]ALTH 350.1.13.10 ity of [place] 4.2.7.2.686 Kilo as KRZYSZTOF?BLEA [id number] [address] OFFICE [facility] 2022-04-15 2022-04-15 Outpatient Braulio CUNNINGHAM [facility] [id number] Univers 09:20:00 09:20:00 [facility] 2022-04-12 2022-04-12 Orders Doctor TIJERINA 1..840.114 [id number] Univers 00:00:00 00:00:00 Only Unassigned, MACKENZIE 350.1.13.10 ity of [place] [facility] 4.2.7.2.686 Iklo as [id number] [address] 2022-04-11 2022-04-11 Outpatient WON SALDIVAR [facility] [id number] Univers 09:00:00 09:00:00 WON MATT [facility] 2022-04-08 2022-04-08 Outpatient WON SALDIVAR [facility] [id number] Univers 13:40:00 14:51:58 WON MATT [facility] 2022-04-08 2022-04-08 Office Vernell [facility] 1..840.114 [id number] Univers 13:40:00 14:51:58 Visit Won [facility] 350.1.13.10 ity of [place] 4.2.7.2.686 Kilo as KRZYSZTOF?BLEA [phone] [address] OFFICE [facility] 2022-04-08 2022-04-08 Nurse Nurse, Thom[facility]Sd [facility] 1. .840.114 [id number] Univers 13:00:00 14:50:23 Visit Unknown, [facility] 350.1.13.10 ity of [place] 4.2.7.2.686 Kilo as KRZYSZTOF?BLEA [phone] [facility] [address] MEDICAL OFFICE [facility] 2022-04-03 2022-04-03 Orders Doctor LILLIANA 1.2.840.114 [id number] Univers 00:00:00 00:00:00 Only Unassigned, MACKENZIE 350.1.13.10 ity of [place] [facility] 4.2.7.2.686 Kilo as [phone] [address] 2022-03-24 2022-03-24 Telephone [facility] [id number] [id number] [facility] 00:00:00 00:00:00 [facility] 350.1.13.10 [facility] 4.2.7.2.686 Kilo as KRZYSZTOF?BLEA [phone] [facility] [address] MEDICAL OFFICE [facility] 2022-03-18 2022-03-18 Telephone [facility] 1.2.180.085 [id number] [facility] 00:00:00 00:00:00 [facility] 350.1.13.10 [facility] 4.2.7.2.686 Kilo as KRZYSZTOF?BLEA [phone] [facility] [address] MEDICAL OFFICE [facility] 2022-03-15 2022-03-15 [facility] 1.2.840.114 [id number] Univers 00:00:00 00:00:00 [facility] 350.1.13.10 ity of [place] 4.2.7.2.686 Kilo as KRZYSZTOF?BLEA [phone] [facility] [address] MEDICAL OFFICE [facility] 2022-03-11 2022-03-11 Mixer Operator Tablets Lab, Ang - [facility] 1.2.840.1 14 [id number] Univers 15:30:00 15:47:42 Visit [facility] 350.1.13.10 [facility] 4.2.7.2.686 Kilo as KRZYSZTOF?BLEA [phone] [facility] [address] MEDICAL OFFICE BUILDING 2022-03-11 2022-03-11 Outpatient R OCTAVIO [facility] [id number] Univers 13:40:00 15:35:06 ANGELA karen [facility] 2022-03-11 2022-03-11 Office Octavio [facility] 1.2.840.114 [id number] Univers 13:40:00 15:35:06 Visit [facility] 350.1.13.10 ity of [place] 4.2.7.2.686 Kilo as KRZYSZTOF?BLEA [phone] Nm salvatore ESTRADA [address] MEDICAL OFFICE [facility] 2022-03-11 2022-03-11 Office [facility] 1.2.840.114 [id number] Univers 08:00:00 09:15:25 Visit [facility] 350.1.13.10 it y of [place] 4.2.7.2.686 Kilo as KRZYSZTOF?BLEA [phone] Nm salvatore ESTRADA 092 [facility] OFFICE [facility] 2022-03-04 2022-03-04 Outpatient R NIRMALA [facility] [id number] Univers 10:30:00 10:30:00 [facility] 2022-02-25 2022-02-25 Urgent Tamela Lucia [facility] 1.2.840.114 [id number] Univers 17:40:00 18:00:00 Care Unknown, [facility] 350.1.13.10 ity of [place] 4.2.7.2.686 Kilo as KRZYSZTOF?BLEA [phone] Nm salvatore DAWKINS [address] MEDICAL OFFICE [facility] 2022-02-25 2022-02-25 Outpatient R REA [facility] [id number] Univers 17:40:00 17:40:00 TAMELA karen [facility] 2022-02-25 2022-02-25 Outpatient R OCTAVIO [facility] [id number] Univers 14:00:00 14:00:00 ANGELA [facility] 2022-02-23 2022-02-23 Orders Doctor TIJERINA 1.2.840.114 [id number] Univers 00:00:00 00:00:00 Only Unassigned, MACKENZIE 350.1.13.10 ity of [place] [facility] 4.2.7.2.686 Kilo as [phone] [address] 2022-01-21 2022-01-21 Outpatient R OCTAVIO [facility] [id number] Univers 15:40:00 16:34:00 [facility] 2022-01-21 2022-01-21 [facility] 1.2.840.114 [id number] Univers 15:40:00 16:34:00 Visit [facility] 350.1.13.10 ity of [place] 4.2.7.2.686 Kilo as KRZYSZTOF?BLEA [phone] Nm diccleopatra [address] OFFICE [facility] 2021-12-31 2021-12-31 Outpatient R CLAIREKaren [facility] [id number] Univers 11:20:00 11:20:00 [facility] 2021-12-31 2021-12-31 Orders Doctor TIJERINA 1..840.114 [id number] Univers 00:00:00 00:00:00 Only Unassigned, MACKENZIE 350.1.13.10 ity of [place] [facility] 4.2.7.2.686 Kilo as [phone] [address] 2021-12-24 2021-12-24 Outpatient R ODILON [facility] [id number] Univers 14:30:00 15:49:08 [facility] 2021-12-24 2021-12-24 Office [facility] 1..840.114 [id number] Univers 14:30:00 15:49:08 Visit [facility] [employer] 350.1.13.10 i ty of [place] 4.2.7.2.686 Kilo as KRZYSZTOF?BLEA [phone] Nm dical NATALIE [address] [place] [address] MEDICAL OFFICE [facility] 2021-12-23 2021-12-23 Abstract [facility] 1..840.114 [id number] Univers 00:00:00 00:00:00 Angela HEALTH 350.1.13.10 ity of [place] 4.2.7.2.686 Kilo as KRZYSZTOF?BLEA [phone] Nm salvatore [address]WK[address] MEDICAL OFFICE [facility] 2021-12-17 2021-12-17 Outpatient R BETO [facility] [id number] Univers 11:00:00 11:00:00 DANIEL collins o f [facility] 2021-12-17 2021-12-17 Refshruthi CunninghamPRES[facility] 1.2.840.114 [id number] Univers 00:00:00 00:00:00 Angela HEALTH 350.1.13.10 ity of [place] 4.2.7.2.686 Kilo as RKZYSZTOF?BLEA [phone] [address] MEDICAL OFFICE [facility] 2021-12-10 2021-12-10 Outpatient R OCTAVIO [facility] [id number] Univers 09:20:00 09:20:00 [facility] 2021-12-10 2021-12-10 Outpatient R OCTAVIO [facility] [id number] Univers 09:20:00 09:20:00 [facility] 2021-12-03 2021-12-03 Outpatient R OCTAVIO [facility] [id number] Univers 13:40:00 14:38:59 [facility] 2021-12-03 2021-12-03 Office [facility] 1.2.840.114 [id number] Univers 13:40:00 14:38:59 Visit [place] [facility] 350.1.13.10 ity of [place] 4.2.7.2.686 Kilo as KRZYSZTOF?BLEA [phone] [address] MEDICAL OFFICE [facility] 2021-11-27 2021-11-27 Refill [facility] 1.2.840.114 [id number] Univers 00:00:00 00:00:00 Angela HEALTH 350.1.13.10 ity of [place] 4.2.7.2.686 Kilo as KRZYSZTOF?BLEA [phone] [address] MEDICAL OFFICE [facility] 2021-11-26 2021-11-26 Outpatient R WON MATT [facility] [id number] Univers 15:40:00 16:24:04 WON MATT [facility] 2021-11-26 2021-11-26 Office Vernell [facility] 1.2.840.114 [id number] Univers 15:40:00 16:24:04 Visit Won HODGES 350.1.13.10 ity of [place] 4.2.7.2.686 Kilo as KRZYSZTOF?BLEA [phone] [address] MEDICAL OFFICE BUILDING 2021-11-19 2021-11-19 Outpatient R WON MATT [facility] [id number] Univers 09:57:12 23:59:00 VERNELLWON SIBLEY karina [facility] 2021-11-19 2021-11-19 Hospital [facility] 1.2.416.963 [id number] Univers 09:57:12 23:59:00 Encounter Won ALBRECHT 350.1.13.10 ity of [place].2.7.2.[place] [phone] [facility] [address] 2021-11-18 2021-11-18 Orders Doctor LILLIANA 1.2.840.114 [id number] Univers 00:00:00 00:00:00 Only Unassigned, MACKENZIE 350.1.13.10 ity of [place] [facility] 4.2.7.2.686 Kilo as [phone] [facility] [address] 2021-11-09 2021-11-09 Outpatient Braulio PÉREZ [facility] [id number] Univers 13:00:00 13:00:00 DANIEL collins o f [facility] 2021-11-05 2021-11-05 Outpatient Braulio CUNNINGHAM [facility] [id number] Univers 10:40:00 10:40:00 ANGELA collins [facility] 2021-11-02 2021-11-02 Outpatient WON SALDIVAR [facility] [id number] Univers 13:00:00 14:14:42 VERNELLWON SIBLEY karina [facility] 2021-11-02 2021-11-02 Office Vernell [facility] 1.2.840.114 [id number] Univers 13:00:00 14:14:42 Visit Won Ponce [facility] 350.1.13.10 ity of [place] 4.2.7.2.686 Kilo as KRZYSZTOF?BLEA [phone] [facility] [address] MEDICAL OFFICE BUILDING 2021-11-01 2021-11-01 Orders Doctor LILLIANA 1.2.840.114 [id number] Univers 00:00:00 00:00:00 Only Unassigned, MACKENZIE 350.1.13.10 ity of [place] [facility] 4.2.7.2.686 Kilo as [phone] [address] 2021-10-28 2021-10-28 Telephone [facility] 1.2.162.457 [id number] Univers 00:00:00 00:00:00 Angela HEALTH 350.1.13.10 ity of [place] 4.2.7.2.686 Kilo as KRZYSZTOF?BLEA [phone] [address] MEDICAL OFFICE [facility] 2021-10-26 2021-10-26 Telephone [facility] 1.2.371.453 [id number] Univers 00:00:00 00:00:00 Angela HEALTH 350.1.13.10 ity of [place] 4.2.7.2.686 Kilo as KRZYSZTOF?BLEA [phone] [address] MEDICAL OFFICE [facility] 2021-10-25 2021-10-25 [facility] [id number] Univers 14:40:00 15:55:58 ANGELA ity [facility] 2021-10-25 2021-10-25 Office [facility] 1.2.840.114 [id number] Univers 14:40:00 15:55:58 Visit [facility] 350.1.13.10 ity of [place] 4.2.7.2.686 Kilo as KRZYSZTOF?BLEA [phone] [address] MEDICAL OFFICE BUILDING 2021-10-25 2021-10-25 Telephone [facility] 1.2.135.239 [id number] Univers 00:00:00 00:00:00 Angela HEALTH 350.1.13.10 ity of [place] 4.2.7.2.686 Kilo as KRZYSZTOF?BLEA [phone] [address] OFFICE [facility] 2021-10-25 2021-10-25 Orders Doctor LILLIANA 1.2.840.114 [id number] Univers 00:00:00 00:00:00 Only Unassigned, MACKENZIE 350.1.13.10 ity of [place] [facility] 4.2.7.2.686 Kilo as [phone] [address] 2021-10-20 2021-10-20 Telephone [facility] 1.2.545.040 [id number] Univers 00:00:00 00:00:00 Angela HEALTH 350.1.13.10 [facility] 4.2.7.2.686 Kilo as KRZYSZTOF?BLEA [phone] [address] 2021-09-24 2021-09-24 Out[facility] [id number] Univers 08:40:00 08:40:00 [facility] 2021-09-24 2021-09-24 Outpatient [facility] [id number] Univers 08:30:00 08:30:00 [facility] 2021-09-17 2021-09-17 Outpatient WON SALDIVAR [facility] [id number] Univers 11:00:00 11:00:00 WON MATT [facility] 2021-09-13 2021-09-13 Telephone [facility] 1.2.764.502 [id number] Univers 00:00:00 00:00:00 Angela HEALTH 350.1.13.10 ity of [place] 4.2.7.2.686 Kilo as KRZYSZTOF?BLEA [phone] [address] 2021-09-13 2021-09-13 Orders Doctor LILLIANA 1.2.840.114 [id number] Univers 00:00:00 00:00:00 Only Unassigned, MACKENZIE 350.1.13.10 ity of [place] [facility] 4.2.7.2.686 Kilo as [phone] [address] 2021-09-10 2021-09-10 Outpatient [facility] [id number] Univers 16:00:00 17:05:49 ANGELA ity [facility] 2021-09-10 2021-09-10 Office [facility] 1.2.840.114 [id number] Univers 16:00:00 17:05:49 Visit [facility] 350.1.13.10 ity of [place] 4.2.7.2.686 Kilo as KRZYSZTOF?BLEA [phone] [address] OFFICE [facility] 2021-09-05 2021-09-05 Telephone [facility] 1.2.238.112 [id number] Univers 00:00:00 00:00:00 Chary A HEALTH 350.1.13.10 i ty of [place] 4.2.7.2.686 Kilo as KRZYSZTOF?BLEA [phone] [address] OFFICE [facility] 2021-09-03 2021-09-03 Mixer Operator Tablets Lab, Ang - Db [facility] 1.2.840.1 14 [id number] Univers 07:45:00 08:09:03 Visit Octavio [facility] 350.1.13.10 ity of [place] 4.2.7.2.686 Kilo as KRZYSZTOF?BLEA [phone] [address] OFFICE [facility] 2021-09-03 2021-09-03 Outpatient [facility] [id number] Univers 07:45:00 07:45:00 ANGELA ity [facility] 2021-09-02 2021-09-02 Telephone [facility] 1.2.001.751 [id number] Univers 00:00:00 00:00:00 Angela HEALTH 350.1.13.10 ity of [place] 4.2.7.2.686 Kilo as KRZYSZTOF?BLEA [phone] [address] OFFICE [facility] 2021-08-27 2021-08-27 Mixer Operator Tablets Lab, Ang - Db [facility] 1.2.840.1 14 [id number] Univers 15:30:00 15:45:00 Visit Octavio Angela HEALTH 350.1.13.10 ity of [place] 4.2.7.2.686 Kilo as KRZYSZTOF?BLEA [phone] [facility] [address] MEDICAL OFFICE [facility] 2021-08-27 2021-08-27 Outpatient R OCTAVIO [facility] [id number] Univers 14:00:00 15:19:02 ANGELA ity [facility] 2021-08-27 2021-08-27 Office [facility] 1.2.840.114 [id number] Univers 14:00:00 15:19:02 Visit Angela HEALTH 350.1.13.10 ity of [place] 4.2.7.2.686 Kilo as KRZYSZTOF?BLEA [phone] [address] OFFICE [facility] 2021-08-20 2021-08-20 Refill [facility] 1.2.840.114 [id number] Univers 00:00:00 00:00:00 Chary A HEALTH 350.1.13.10 i ty of [place] 4.2.7.2.686 Kilo as KRZYSZTOF?BLEA [phone] [address] OFFICE [facility] 2021-08-16 2021-08-16 Patient Doctor LILLIANA 1.2.840.114 [id number] Univers 00:00:00 00:00:00 Secure Msg Unassigned, MACKENZIE 350.1.13.10 ity of [place] [facility] 4.2.7.2.686 Kilo as [phone] [address] 2021-07-21 2021-07-21 Patient Doctor LILLIANA 1.2.840.114 [id number] Univers 00:00:00 00:00:00 Secure Msg Unassigned, MACKENZIE 350.1.13.10 ity of [place] [facility] 4.2.7.2.686 Kilo as [phone] [address] 2021-07-09 2021-07-09 Outpatient R ODILON [facility] [id number] Univers 16:00:00 17:29:20 CHARY ity [facility] 2021-07-09 2021-07-09 Office [facility] 1.2.840.114 [id number] Univers 16:00:00 17:29:20 Visit Chary A HEALTH 350.1.13.10 i ty of [place] 4.2.7.2.686 Kilo as KRZYSZTOF?BLEA [phone] Nm salvatore ESTRADA [address] MEDICAL OFFICE [facility] 2021-07-09 2021-07-09 Outpatient R ODILON [facility] [id number] Univers 16:00:00 17:29:20 CHARY ity of [facility] 2021-06-09 2021-06-09 Case Rea [facility] 1.2.840.114 [id number] Univers 00:00:00 00:00:00 Management Rania HEALTH 350.1.13.10 ity [facility] 4.2.7.2.686 Kilo as KRZYSZTOF?BLEA [phone] Nm salvatore [facility] OFFICE [facility] 2021-06-09 2021-06-09 Tapan Mccartney [facility] 1.2.840.114 [id number] Univers 00:00:00 00:00:00 (Out) Ree HEALTH 350.1.13.10 it y of [place] 4.2.7.2.686 Kilo as KRZYSZTOF?BLEA [phone] [facility] [address] OFFICE [facility] 2021-06-08 2021-06-08 Laboratory Only, Ang Db Test [facility] 1.2.8 40.114 [id number] Univers 09:15:00 09:30:00 Only Rambo Tera HEALTH 350.1.13.10 ity of [place] 4.2.7.2.686 Kilo as KRZYSZTOF?BLEA [phone] [facility] [address] MEDICAL OFFICE [facility] 2021-06-08 2021-06-08 Outpatient R RAMBO [facility] [id number] Univers 09:15:00 09:15:00 TERA ity of [facility] 2021-05-17 2021-05-17 Outpatient R JOEL [facility] [id number] Univers 13:30:00 13:30:00 karina NAYAK [facility] 2021-05-13 2021-05-13 Orders Doctor TIJERINA 1.2.840.114 [id number] Univers 00:00:00 00:00:00 Only Unassigned, MACKENZIE 350.1.13.10 ity of [place] [facility] 4.2.7.2.686 Kilo as [phone] [facility] [address] 2021-05-03 2021-05-03 Telephone [facility] 1.2.805.492 [id number] Univers 00:00:00 00:00:00 Amaya HEALTH 350.1.13.10 it y of [place] 4.2.7.2.686 Kilo as KRZYSZTOF?BLEA [phone] [address] MEDICAL OFFICE [facility] 2021-04-30 2021-04-30 Telephone [facility] 1.2.146.748 [id number] Univers 00:00:00 00:00:00 Gerardo HEALTH 350.1.13.10 it y of [place] 4.2.7.2.686 Kilo as KRZYSZTOF?BLEA [id number] [address] OFFICE [facility] 2021-04-29 2021-04-29 Nurse LILLIANA Jain 1.2.840.114 [id number] Univers 00:00:00 00:00:00 Triage Pamela Roman M[place]ENZIE 350.1.13.10 it y of HOSPITAL 4.2.7.2.686 Kilo as [phone] [facility] [address] 2021-04-29 2021-04-29 Refshruthi [facility] 1.2.840.114 [id number] Univers 00:00:00 00:00:00 Wondiful [facility] 350.1.13.10 ity of [place].2.7.2.[place] [phone] [address] 2021-04-23 2021-04-23 Outpatient Braulio PÉREZ [facility] [id number] Univers 09:00:00 09:00:00 KHANHJUN ity o f [facility] 2021-04-14 2021-04-14 Outpatient Braulio HOBSON [facility] [id number] Univers 09:30:00 09:30:00 WONDIFUL ity o f [facility] 2021-04-14 2021-04-14 Outpatient Braulio HOBSON [facility] [id number] Univers 09:30:00 09:30:00 WONDIFUL ity o f [facility] 2021-04-05 2021-04-05 Outpatient R ARIAN [facility] [id number] Univers 10:30:00 10:30:00 JESSICA ity of [facility] 2021-04-05 2021-04-05 Orders Doctor LILLIANA 1.2.840.114 [id number] Univers 00:00:00 00:00:00 Only Unassigned, MACKENZIE 350.1.13.[address] [facility] 4.2.7.2.686 Kilo as [phone] [facility] [address] 2021-03-22 2021-03-22 Outpatient R LYLA [facility] [id number] Univers 11:30:00 12:40:29 AMAYA ity [facility] 2021-03-22 2021-03-22 Office [facility] 1.2.840.114 [id number] Univers 11:30:00 12:40:29 Visit Amaya HEALTH 350.1.13.10 it y of [place] 4.2.7.2.686 Kilo as KRZYSZTOF?BLEA [phone] [facility] NATALIE [address] [place] [address] OFFICE BUILDING 2021-03-21 2021-03-21 Isa [facility] 1.2.840.114 [id number] Univers 00:00:00 00:00:00 Wondiful A HEALTH 350.1.13.10 ity of [place] 4.2.7.2.686 Kilo as PROFESSIO [phone] [address] OFFICE BUILDING ONE 2021-02-22 2021-02-22 Office LAST Eric 1.2.840.114 [id number] Univers 14:30:00 15:00:00 Visit Jessica R Y HEALTH 350.1.13.10 ity of [facility] 4.2.7.2.[place] [id number] [facility] [address] 2021-02-22 2021-02-22 Outpatient R ARIAN [facility] [id number] Univers 14:30:00 14:30:00 JESSICA ity [facility] 2021-02-22 2021-02-22 Outpatient R ARIAN [facility] [id number] Univers 14:30:00 14:30:00 JESSICA ity of [facility] 2021-01-25 2021-01-25 Refill [facility] 1.2.840.114 [id number] Univers 00:00:00 00:00:00 Wondiful A HEALTH 350.1.13.10 ity of [place] 4.2.7.2.686 Kilo as PROFESSIO [phone] [address] OFFICE [facility] 2021-01-21 2021-01-21 [facility] 1.2.840.114 [id number] Univers 00:00:00 00:00:00 Management Wondiful A HEALTH 350.1.13.10 ity of [place] 4.2.7.2.686 Kilo as KRZYSZTOF?BLEA [phone] [address] OFFICE [facility] 2021-01-21 2021-01-21 Beto [facility] 1.2.840.114 [id number] Univers 00:00:00 00:00:00 Management Wondiful A HEALTH 350.1.13.10 ity of [place] 4.2.7.2.686 Kilo as KRZYSZTOF?BLEA [phone] [address] OFFICE [facility] 2021-01-20 2021-01-20 Outpatient R TERESITA [facility] [id number] Univers 09:25:28 23:59:00 CECI itkaren [facility] 2021-01-20 2021-01-20 [facility] [place] Hobson [facility] 1.2.8 40.114 [id number] Univers 09:00:00 23:59:00 Encounter Ceci Lo [place] 350.1.1 3.10 ity of [place].2.[place] [phone] [address] 2021-01-15 2021-01-15 [facility] [id number] Univers 10:10:00 10:10:00 WONDIFUL ity o f [facility] 2021-01-15 2021-01-15 Imm/Inj Vaccine, Ang Db Cbc Fam [facility] 1. 2.840.114 [id number] Univers 08:47:34 08:57:34 Visit Austin Hobson HEALTH 350.1.13.1 0 ity of [place] 4.2.7.2.686 Kilo as KRZYSZTOF?BLEA [phone] [facility] OFFICE [facility] 2021-01-15 2021-01-15 Mixer Operator Tablets Lab, Ang - Db [facility] 1.2.840.1 14 [id number] Univers 08:20:53 08:35:53 Visit Austin Hobson HEALTH 350.1.13.1 0 ity of [place] 4.2.7.2.686 Kilo as KRZYSZTOF?BLEA [phone] [facility] OFFICE [facility] 2021-01-14 2021-01-14 Office [facility] 1.2.840.114 [id number] Univers 13:02:10 13:52:29 Visit Austin Goyal HEALTH 350.1.13.10 ity of [place] 4.2.7.2.686 Kilo as KRZYSZTOF?BLEA [phone] [address] OFFICE [facility] 2021-01-14 2021-01-14 Outpatient R JOCE [facility] [id number] Univers 13:00:00 13:52:29 WONDIFUL ity o paula [facility] 2020-12-04 2020-12-04 Hospital [facility] 1.2.690.268 [id number] Univers 12:31:25 23:59:00 Encounter Wonyasminful A [place] 350.1.13.10 ity of [place] [id number] [address] 2020-12-04 2020-12-04 Outpatient R JOCE [facility] [id number] Univers 10:15:00 12:44:29 WONDIFUL ity o f [facility] 2020-12-04 2020-12-04 Office [facility] 1.2.840.114 [id number] Univers 10:12:12 12:44:29 Visit Wondiful A HEALTH 350.1.13.10 ity of [place] 4.2.7.2.686 Kilo as KRZYSZTOF?BLEA [phone] [address] MEDICAL OFFICE [facility] 2020-10-16 2020-10-16 Patient Joce [facility] 1.2.840.114 [id number] Univers 00:00:00 00:00:00 Secure Msg Wondiful A Health 350.1.13.10 ity of [place] 4.2.7.2.686 Kilo as Krzysztof?Blea [phone] [address] Office [facility] 2020-10-13 2020-10-13 Telephone [facility] 1.2.840.114 [id number] Univers 00:00:00 00:00:00 Wondiful A Health 350.1.13.10 ity of [place] 4.2.7.2.686 Kilo as Krzysztof?Blea [phone] [address] Office [facility] 2020-10-08 2020-10-08 Patient Doctor LILLIANA 1.2.840.114 [id number] Univers 00:00:00 00:00:00 Secure Msg Unassigned, MACKENZIE 350.1.13.10 ity of [place] [facility] 4.2.7.2.686 Kilo as [id number] [address] 2020-10-08 2020-10-08 [facility] 1.2.840.114 [id number] Univers 00:00:00 00:00:00 Wondiful [facility] [id number] ity of [place] [id number] [place] Krzysztof?Blea [phone] [address] Office [facility] 2020-10-08 2020-10-08 Telephone [facility] 1.2.840.114 [id number] Univers 00:00:00 00:00:00 Wondiful [facility] [id number] ity of [place] [id number] [place] as Krzysztof?Blea [phone] [address] Office [facility] 2020-10-06 2020-10-06 [facility] [id number] Univers 09:00:00 09:00:00 WONDIFUL ity o f [facility] 2020-10-05 2020-10-05 [facility] 1.2.840.114 [id number] Univers 11:08:16 12:09:41 Visit [place] [facility] [id number] ity of [place] [id number] [place] as Krzysztof?Blea [phone] Nm adolphcleopatra kney 044 [facility] Office Building 2020-10-05 2020-10-05 Outpatient R OJCE [facility] [id number] Univers 11:15:00 11:15:00 WONDIFUL ity o f [facility] 2020-09-15 2020-09-15 [facility] [id number] Univers 14:30:00 14:30:00 WONDIFUL ity o f [facility] 2020-08-06 2020-08-06 Outpatient R BETO [facility] [id number] Univers 00:00:00 00:00:00 QIAANTWANJUN ity o f [facility] 2020-07-21 2020-07-21 [facility] 1.2.840.114 [id number] Univers 00:00:00 00:00:00 Secure Msg Daniel SIEGELTON [id number] ity of [id number] PROFESS[place] [phone] Nm salvatore PANTOJA 059 [facility] 2020-07-20 2020-07-20 Mixer Operator Tablets Lab, Adc Fam Pob I [facility] 1.2. 840.114 [id number] Univers 10:43:24 11:03:24 Visit Daniel [facility] [id number] ity of [place] [id number] Kilo as Professio [phone] Nm adolphal nal 044 [place] [facility] 2020-07-20 2020-07-20 Office [facility] 1.2.840.114 [id number] Univers 09:55:53 10:27:33 Visit Daniel Sie[place] [id number] ity of [id number] Profess[place] [phone] [facility] 059 [facility] 2020-07-20 2020-07-20 Outpatient R BETO [facility] [id number] Univers 10:00:00 10:00:00 DANIEL ity o f [facility] 2020-06-02 2020-06-02 Telephone Joce [facility] 1.2.840.114 [id number] Univers 00:00:00 00:00:00 Wondiful A Health [id number] ity of [place] [id number] [place]ilo as Professio [phone] [address] One 2020-06-01 2020-06-01 Refill Beto [facility] 1.2.840.114 [id number] Univers 00:00:00 00:00:00 Daniel [place] 350.1.13.10 ity [place] [phone] [facility] 059 [facility] 2020-05-18 2020-05-18 Orders Doctor LILLIANA 1.2.840.114 [id number] Univers 00:00:00 00:00:00 Only Unassigned, MACKENZIE 350.1.13.10 ity of [place] [facility] 4.2.7.2.686 [place]ilo as [phone] [address] 2020-04-29 2020-04-29 Telephone [facility] 1.2.744.448 [id number] 00:00:00 00:00:00 Daniel Albrecht 350.1.13.10 [place] 4.2.7.2.686 Professio [phone] [address] 2020-04-29 2020-04-29 Refill [facility] 1.2.840.114 [id number] 00:00:00 00:00:00 Daniel Albrecht 350.1.13.10 [place] 4.2.7.2.686 Professio [phone] [address] 2020-04-29 2020-04-29 Sloan [facility] 1.2.951.360 [id number] Univers 00:00:00 00:00:00 Qiashayne [place] 350.1.13.10 it[place] [phone] [place] 664289 [facility] 2020-04-29 2020-04-29 Refshruthi [facility] 1.2.840.114 [id number] [facility] 00:00:00 00:00:00 Qiashayne [place] 350.1.13.10 [place] [phone] [address] 2020-04-25 2020-04-25 Urgent Provider, [facility] 1.2.653.983 [id number] 10:12:47 10:32:47 Care [facility] 350.1.13.10 Care [place] 4.2.7.2.686 Professio [phone] [place] [address] Office [facility] One 2020-04-25 2020-04-25 Urgent Provider, [facility] 1.2.840.114 [id number] [facility] 10:12:47 10:32:47 Care Mine [facility] J Health 350.1.13.10 ity of [place] 4.2.7.2.686 [place] Professio [phone] [address] Office [facility] 2020-04-25 2020-04-25 Outpatient R ONEAL [facility] [id number] [facility] 10:20:00 10:20:00 MINE collins o f [facility] 2020-04-15 2020-04-15 Telephone [facility] 1.2.840.114 [id number] 00:00:00 00:00:00 Wondiful A Health 350.1.13.10 [place] 4.2.7.2.686 Professio [phone] [place] [address] Office Building One 2020-04-15 2020-04-15 Telephone [facility] 1.2.840.114 [id number] [facility] 00:00:00 00:00:00 Wondiful A Health 350.1.13.10 ity of [place] 4.2.7.2.686 [place] Professio [phone] [address] Office Building One 2020-03-07 2020-03-07 Patient Tyler [facility] 1.2.840.114 [id number] 00:00:00 00:00:00 Outreach Ethan PRIMARY 350.1.13.10 Herbie CARE 4.2.7.2.686 PAVILLION [phone] 388 2020-03-07 2020-03-07 Patient [facility] 1.2.840.114 [id number] Univers 00:00:00 00:00:00 Outreach Ethan PRIMARY 350.1.13.10 i ty of [facility] [place]2.7.2.[place] [phone] [address] 2020-01-16 2020-01-16 [facility] [id number] [facility] 16:30:00 16:30:00 WONDIFUL ity o f [facility] 2020-01-16 2020-01-16 Telemedici [facility] 1.2.840.114 [id number] 16:09:25 16:24:25 ne Visit W[facility]iful A Health 350.1.13.10 [place] 4.2.7.2.686 Professio [phone] [place] [address] Office [facility] 2020-01-16 2020-01-16 Telemedici [facility] 1.2.840.114 [id number] [facility] 16:09:25 16:24:25 ne Visit Wondiful A Health 350.1.13.10 ity of [place] 4.2.7.2.686 [place] Professio [phone] [address] Office Building One 2020-01-12 2020-01-12 Orders Doctor TIJERINA 1.2.840.114 [id number] 00:00:00 00:00:00 Only Unassigned, MACKENZIE 350.1.13.10 [place] [facility] 4.2.7.2.686 [phone] [phone] 2020-01-12 Orders Doctor TIJERINA 1.2.840.114 [id number] Univers 00:00:00 00:00:00 Only Unassigned, MACKENZIE 350.1.13.10 ity of [place] [facility] 4.2.7.2.686 Kilo as [phone] [facility] 009 [place] 2019-12-16 2019-12-16 Case Joce [facility] 1.2.840.114 [id number] 00:00:00 00:00:00 Management Antwandiful A Health 350.1.13.10 [place] 4.2.7.2.686 Professio [phone] nal [facility] Office Building One 2019-12-16 2019-12-16 Case Joce [facility] 1.2.840.114 [id number] Univers 00:00:00 00:00:00 Management Antwandiful A Health 350.1.13.10 ity of [place] 4.2.7.2.686 [place] Professio [phone] Nm dical [address] Office Building One 2019-12-12 2019-12-12 Mixer Operator Tablets 1, Adc Lab [facility] 1.2.840.114 [id number] 09:36:54 09:51:54 Visit [place] 350.1.13.10 [place] 4.2.7.2.686 [place] [phone] [facility] 2019-12-12 2019-12-12 Mixer Operator Tablets 1, Adc Lab [facility] 1.2.840.114 [id number] [facility] 09:36:54 09:51:54 Visit Austin Hobson [place] 350.1.13. 10 ity of [place] 4.2.7.[address] [facility] [phone] [address] 2019-12-12 2019-12-12 Outpatient R [facility] [id number] Univers 08:30:00 08:30:00 ity of [facility] 2019-12-12 2019-12-12 Telephone Joce LADELIA 1.2.840.114 [id number] 00:00:00 00:00:00 Wondiful A Health 350.1.13.10 [place] 4.2.7.2.686 Professio [phone] nal [facility] Office Building One 2019-12-12 2019-12-12 Telephone Joce LADELIA 1.2.840.114 [id number] Univers 00:00:00 00:00:00 Wondiful A Health 350.1.13.10 ity of [place] 4.2.7.2.686 [place] Professio [phone] [address] Office [facility] 2019-12-05 2019-12-05 Orders Doctor LILLIANA 1.2.840.114 [id number] 00:00:00 00:00:00 Only Unassigned, MACKENZIE 350.1.13.10 [place] [facility] 4.2.7.2.686 [phone] 009 2019-12-05 2019-12-05 Orders Doctor LILLIANA 1.2.840.114 [id number] Univers 00:00:00 00:00:00 Only Unassigned, MACKENZIE 350.1.13.10 ity of [place] [facility] 4.2.7.2.686 Kilo as [phone] [address] 2019-11-14 2019-11-14 Case Joce [facility] 1.2.840.114 [id number] 00:00:00 00:00:00 Management Wondiful A Health 350.1.13.10 [place] 4.2.7.2.686 Professio [phone] [place] [address] Office [facility] 2019-11-14 2019-11-14 KIARA Mclaughlin 1.2.840.114 [id number] Univers 00:00:00 00:00:00 Management Wondiful A Health 350.1.13.10 ity of [place] 4.2.7.2.686 [place] Professio [phone] [address] Office [facility] 2019-11-13 2019-11-13 Beto [place] LADELIA 1.2.840.114 [id number] 00:00:00 00:00:00 Management Wondiful A Health 350.1.13.10 [place] 4.2.7.2.686 Professio [phone] [place] [address] Office [facility] 2019-11-13 2019-11-13 Beto [place] [facility] 1.2.840.114 [id number] Univers 00:00:00 00:00:00 Management W[facility]iful [facility] 350.1.13.10 ity of [place] 4.2.7.2.686 [place] Professio [phone] [address] Office [facility] 2019-11-08 2019-11-08 Mixer Operator Tablets Lab, [facility] Fam Pob I [facility] 1.2. 840.114 [id number] [facility] 11:16:17 11:26:17 Visit Antwan Hobsonyasminginger [facility] 350.1.13.1 0 ity of [place] 4.2.7.2.686 [place] Professio [phone] [address] Office [facility] 2019-11-08 2019-11-08 Office [facility] 1.2.840.114 [id number] 09:44:58 11:00:23 Visit Wondiful A Health 350.1.13.10 [place] 4.2.7.2.686 Professio [phone] [address] 2019-11-08 2019-11-08 Office [facility] 1..840.[id number] [place] [address] 09:44:58 11:00:23 Visit Wondiful A Health 350.1.13.10 ity of [place] 4.2.7.2.686 [place] Professio [phone] [address] 2019-11-08 2019-11-08 Outpatient R JOCE [facility] [id number] [facility] 08:45:00 08:45:00 WONDIFUL ity o f [facility] 2019-09-02 2019-11-04 Telemedici [facility] 1..840.114 [id number] [facility] 09:09:51 09:25:19 ne Visit Wondiful A [place] 350.1.13.10 [place] [phone] [address] 2019-11-04 2019-11-04 Mixer Operator Tablets Lab, [facility] Fam Pob I [facility] 1.2. 840.114 [id number] Univers 09:02:55 09:12:55 Visit Austin Hobson [facility] 350.1.13.1 0 ity of [place] 4.2.7.2.686 [place] Professio [phone] Nm dical nal 044 [place] Office [facility] 2019-11-04 2019-11-04 Outpatient R JOCE [facility] [id number] Univers 09:00:00 09:00:00 WONDIFUL ity o f [facility] 2019-10-30 2019-10-30 Refshruthi [facility] 1.2.840.114 [id number] Univers 00:00:00 00:00:00 Wondiful A Health 350.1.13.10 ity of [place] 4.2.7.2.686 [place] Professio [phone] Nm dical nal 044 [place] Office [facility] 2019-10-25 2019-10-25 Refshruthi [facility] 1.2.840.114 [id number] Univers 00:00:00 00:00:00 Wondiful A Health 350.1.13.10 ity of [place] 4.2.7.2.686 [place] Professio [phone] Nm dical nal 044 [place] Office [facility] 2019-10-25 2019-10-25 Refshruthi [facility] 1.2.840.114 [id number] Univers 00:00:00 00:00:00 Wondiful A Health 350.1.13.10 ity of [place] 4.2.7.2.686 [place] Professio [phone] Nm dical nal 044 [facility] 2019-10-07 2019-10-07 Orders Doctor LILLIANA 1.2.840.114 [id number] Univers 00:00:00 00:00:00 Only Unassigned, MACKENZIE 350.1.13.10 ity of [place] [facility] 4.2.7.2.686 Kilo as [phone] [address] 2019-09-30 2019-09-30 Office [facility] 1.2.840.114 [id number] Univers 09:15:37 09:55:50 Visit Daniel Albrecht 350.1.13.10 it[place]2.[place] [phone] Nm salvatore nal 059 [facility] 2019-09-30 2019-09-30 Outpatient R BETO [facility] [id number] Univers 09:40:00 09:40:00 DANIEL ity o f [facility] 2019-09-02 2019-09-02 Outpatient R JOCE, [facility] [id number] Univers 08:45:00 08:45:00 WONDIFUL ity o f [facility] 2019-08-30 2019-08-30 Telephone LILLIANA Donald 1..931.155 [id number] Univers 00:00:00 00:00:00 Chary MANN 350.1.13.10 i [facility] 4.2.7.2.686 [place] [phone] [address] 2019-08-29 2019-08-29 Laboratory Lab, [facility] Pob I [facility] 1.2. 840.114 [id number] Univers 11:32:55 11:52:55 Only Casie Aritathia Health 350.1.13.10 ity of [place] 4.2.7.2.686 [place] Professio [phone] Nm dic[address] Office Building [facility] 2019-08-29 2019-08-29 Outpatient [facility] [id number] Univers 11:40:00 11:40:00 AMAYA itkaren [facility] 2019-08-29 2019-08-29 Urgent Lab, [facility] 1.2.840.114 [id number] 11:00:00 11:20:00 Care Fam Pob I Health 350.1.13.10 [place] 4.2.7.2.686 Professio [phone] [place] [address] Office [facility] 2019-08-29 2019-08-29 Urgent Lab, [facility] Pob I [facility] 1.2.840 .114 [id number] Univers 11:00:00 11:20:00 Care Casie Aritathia Health 350.1.13.10 ity of [place] 4.2.7.2.686 [place] Professio [phone] Nm dical [facility] 044 [place] Office Building [facility] 2019-08-29 2019-08-29 Outpatient R [facility] [id number] Univers 11:00:00 11:00:00 ity of [facility] 2019-08-29 2019-08-29 Letter Doctor LILLIANA 1.2.840.114 [id number] Univers 00:00:00 00:00:00 (Out) Unassigned, MACKENZIE 350.1.13.[address] [facility] 4.2.7.2.686 Kilo as [phone] [address] 2019-08-20 2019-08-20 Refill [facility] 1.2.840.114 [id number] Univers 00:00:00 00:00:00 Wondiful A Health 350.1.13.10 ity of [place] 4.2.7.2.686 [place] Professio [phone] [address] Office [facility] 2019-07-30 2019-07-30 Office Kedar [facility] Encounter / Legacy 00:00:00 00:00:00 Visit Renata [id number] Com natalee [id number] [facility] 2019-07-11 2019-07-11 [facility] [id number] Univers 09:15:00 09:15:00 WONDIFUL ity o f [facility] 2019-07-03 2019-07-03 Telephone [facility] 1.2.840.114 [id number] Univers 00:00:00 00:00:00 Wondiful A [place] 350.1.13.10 it[place] [phone] [address] 2019-07-01 2019-07-01 Office Wilfredo [facility] Encounter/ Legacy 00:00:00 00:00:00 Visit Mirella [id number] Com natalee De La Cruz [id number] [facility] 2019-07-01 2019-07-01 Office Wilfredo [facility] Encounter/ Legacy 00:00:00 00:00:00 Visit Mirella [id number] Com natalee De La [place] [id number] [facility] 2019-07-01 2019-07-01 Office Mirella Villalobos [facility] Encounter/ Legacy 00:00:00 00:00:00 Visit Shy Miller [id number] Communi [id number] [facility] 2019-07-01 2019-07-01 Telephone [facility] 1..840.114 [id number] Univers 00:00:00 00:00:00 Wondiful A Health 350.1.13.10 ity of [place] 4.2.7.2.686 [place] Professio [phone] [address] 2019-06-25 2019-06-25 Office Wilfredo, [facility] Encounter/ Legacy 00:00:00 00:00:00 Visit Mirella [id number] Com natalee De La [place] [id number] [facility] 2019-06-25 2019-06-25 Office Wilfredo, [facility] Encounter/ Legacy 00:00:00 00:00:00 Visit Mirella [id number] Com natalee De La Cruz [id number] [facility] 2019-06-25 2019-06-25 Office Wilfredo, [facility] Encounter/ Legacy 00:00:00 00:00:00 Visit Mirella [id number] Com natalee De La Cruz [id number] [facility] 2019-06-25 2019-06-25 Office Wilfredo, Mirella De La Cruz [facility] Encounter/ Legacy 00:00:00 00:00:00 Visit Renata Thacker [id number] Communi [id number] [facility] 2019-05-14 2019-05-14 Refill [facility] 1..840.114 [id number] Univers 00:00:00 00:00:00 Wondiful A Health 350.1.13.10 ity of [place] 4.2.7.2.686 [place] Professio [phone] [address] One 2019-04-05 2019-04-05 Outpatient R JOCE [facility] [id number] Univers 13:15:00 14:32:32 WONDIFUL ity o f [facility] 2019-04-05 2019-04-05 Office Joce [facility] 1..840.114 [id number] Univers 13:11:19 14:32:32 Visit Wondiful A Health 350.1.13.10 ity of [place] 4.2.7.2.686 [place] Professio [phone] [address] One 2019-04-04 2019-04-04 Sloan Pérez [facility] 1.2.012.576 [id number] Univers 00:00:00 00:00:00 Daniel Albrecht 350.1.13.10 it[place].2.[place] [phone] Nm dical nal 059 [facility] 2019-04-01 2019-04-01 Mixer Operator Tablets 2, Adc Lab [facility] 1.2.840.114 [id number] Univers 11:11:10 11:26:10 Visit Daniel Pérez 350.1.13.10 it[place].2.[place] [phone] [facility] 353 [facility] 2019-04-01 2019-04-01 Outpatient R BETO [facility] [id number] Univers 11:15:00 11:15:00 DANIEL collins o f [facility] 2019-04-01 2019-04-01 Office [facility] 1.2.840.114 [id number] Univers 09:49:17 11:01:30 Visit Daniel Albrecht 350.1.13.10 ity [place] 4[place]2.7.2.[place] [phone] [place] 664289 [facility] 2019-04-01 2019-04-01 Orders Doctor LILLIANA 1.2.840.114 [id number] Univers 00:00:00 00:00:00 Only Unassigned, MACKENZIE 350.1.13.10 ity of [place] [facility] 4.2.7.2.686 Kilo as [phone] [address] 2018-08-03 2018-08-03 Outpatient R JOCE [facility] [id number] Univers 12:45:00 12:45:00 WONDIFUL ity o f [facility] Results Test Description Test Time Test Comments Results Result Comments Source N-TERMINAL PRO-BNP 2022-09-08 21:21:23 Test Item Value Reference Range Interpretation Comme nts NT-proBNP (test code = 32574-1) 969 pg/mL <=125 ALEXIS (test code = ALEXIS) Result Indeterminate-Consider causes of NT-proBNP elevation other than Heart failure such as acute coronary syndrome, pulmonary embolism, pulmonary hypertension, sepsis, stroke, and renal dysfunction. Lab Interpretation (test code = 78885-1) Abnormal [facility] (03356)2022-09-08 21:14:26 Test Item Value Reference Range Interpretation Comments NA (test code = 139 mmol/L 135-145 5490433154) K (test code = 3.6 mmol/L 3.5-5.0 1633675519) CL (test code = 101 mmol/L 98-108 0791418799) CO2 TOTAL (test code = 31 mmol/L 23-31 4819131702) AGAP (test code = 7 2-16 3615486323) BUN (test code = 15 mg/dL 7-23 3996407992) GLUCOSE (test code = 149 mg/dL 70-110 H 6527814435) CREATININE (test code = 0.50 mg/dL 0.50-1.04 0073227268) TOTAL BILI (test code = 0.6 mg/dL 0.1-1.3 1027564107) CALCIUM (test code = 8.7 mg/dL 8.6-10.6 1259347322) T PROTEIN (test code = 6.4 g/dL 6.3-8.2 3126556611) ALBUMIN (test code = 3.7 g/dL 3.5-5.0 9406123584) ALK PHOS (test code = 90 U/L 34-122 0810611254) ALTv (test code = 19 U/L 5-35 1742-6) AST(SGOT) (test code = 27 U/L 13-40 7903531650) eGFR (test code = 117.0 mL/min/1.73m2 7737210319) ALEXIS (test code = ALEXIS) Association of [...] tests). Lab Interpretation Abnormal (test code = 51865-1) [facility] WITH [id number] 18:51:11 Test Item Value Reference Range Interpretation Comments WBC (test code = 7.51 See_Comment [Automated 1155-2) message] The sy stem which generated this result transmitted reference range : 4.30 - 11.10 10*3/?L. The reference range was not used to interpret this result as normal/abnormal . RBC (test code = 4.59 See_Comment [Automated 569-8) message] The sy stem which generated this [...] (test code = 57.1 fL 39.0-49.9 H 87642-1) RDW-CV (test code = 20.9 % 12.0-15.5 H 788-0) PLT (test code = 313 See_Comment [Automated 777-3) message] The sy stem which generated this result transmitted reference range : 166 - 358 10*3/ ?L. The reference r nanci was not used to interpret this result as normal/abnormal . MPV (test code = 10.3 fL 9.5-12.9 23801-0) NRBC/100 WBC (test 0.0 See_Comment [Automat ed code = 1243829871) message] The system which generated this result transmitted reference range : 0.0 - 10.0 /100 WBCs. The refer ence range was not u sed to interpret th is result as normal/abnormal . NRBC x10^3 (test code See_Comment [Auto mated = 9298604582) message] The s ystem which generated this result transmitted reference range : 10*3/?L. The reference range was not used to interpret this result as normal/abnormal . GRAN MAT (NEUT) % 63.2 % (test code = 770-8) IMM GRAN % (test code 0.10 % = 1215108458) LYMPH % (test code = 26.6 % 736-9) MONO % (test code = 7.6 % 5905-5) EOS % (test code = 2.1 % 713-8) BASO % (test code = 0.4 % 706-2) GRAN MAT x10^3(ANC) 4.74 10*3/uL 1.88-7.09 (test code = 1300850578) IMM GRAN x10^3 (test 0.00-0.06 code = 8161234761) LYMPH x10^3 (test code 2.00 10*3/uL 1.32-3.29 = 731-0) MONO x10^3 (test code 0.57 10*3/uL 0.33-0.92 = 742-7) EOS x10^3 (test code = 0.16 10*3/uL 0.03-0.39 711-2) BASO x10^3 (test code 0.03 10*3/uL 0.01-0.07 = 704-7) Lab Interpretation Abnormal (test code = 60320-6) [facility] WITH [id number] 18:51:11 Test Item Value Reference Range Interpretation [...] (test code = 57.1 fL 39.0-49.9 H 59844-8) RDW-CV (test code = 20.9 % 12.0-15.5 H 788-0) PLT (test code = 313 See_Comment [Automated 777-3) message] The sy stem which generated this result transmitted reference range : 166 - 358 10*3/ ?L. The reference r nanci was not used to interpret this result as normal/abnormal . MPV (test code = 10.3 fL 9.5-12.9 60377-1) NRBC/100 WBC (test 0.0 See_Comment [Automat ed code = 3984190662) message] The system which generated this result transmitted reference range : 0.0 - 10.0 /100 WBCs. The refer ence range was not u sed to interpret th is result as normal/abnormal . NRBC x10^3 (test code See_Comment [Auto mated = 5738749164) message] The s ystem which generated this result transmitted reference range : 10*3/?L. The reference range was not used to interpret this result as normal/abnormal . GRAN MAT (NEUT) % 63.2 % (test code = 770-8) IMM GRAN % (test code 0.10 % = 9730081136) LYMPH % (test code = 26.6 % 736-9) MONO % (test code = 7.6 % 5905-5) EOS % (test code = 2.1 % 713-8) BASO % (test code = 0.4 % 706-2) GRAN MAT x10^3(ANC) 4.74 10*3/uL 1.88-7.09 (test code = 3916776708) IMM GRAN x10^3 (test 0.00-0.06 code = 4799224558) LYMPH x10^3 (test code 2.00 10*3/uL 1.32-3.29 = 731-0) MONO x10^3 (test code 0.57 10*3/uL 0.33-0.92 = 742-7) EOS x10^3 (test code = 0.16 10*3/uL 0.03-0.39 711-2) BASO x10^3 (test code 0.03 10*3/uL 0.01-0.07 = 704-7) Lab Interpretation Abnormal (test code = 02040-0) [facility] [id number] 15:02:10 Test Item Value Reference Range Interpretation Comments NT-proBNP (test code = 782 pg/mL <=450 H 2010105177) ALEXIS (test code = ALEXIS) Biotin has been reported to cause a negative bias, interpret results relative to patient's use of biotin. Lab Interpretation (test Abnormal code = 45423-8) [facility] MET[facility]OLIC PANEL (NA, K, CL, CO2, GLUCOSE, BUN, CREATININE, CA)2022-06-11 14:53:52 Test Item Value Reference Range Interpretation Comments NA (test code = 139 mmol/L 135-145 [id number]) K (test code = 4.5 mmol/L 3.5-5.0 8302156261) CL (test code = 103 mmol/L 98-108 1730501475) CO2 TOTAL (test code = 30 mmol/L 23-31 7961666864) AGAP (test code = 6 2-16 9628857636) BUN (test code = 17 mg/dL 7- 1866874954) GLUCOSE (test code = 134 mg/dL 70-110 H [id number]) CREATININE (test code = 0.57 mg/dL 0.50-1.04 8833290521) CALCIUM (test code = 9.0 mg/dL 8.6-10.6 0984552601) eGFR (test code = 100.6 mL/min/1.73m2 3942894169) ALEXIS (test code = ALEXIS) Association of [...] tests). Lab Interpretation Abnormal (test code = 87011-9) [facility]-Glucose [id number] 11:00:26 Test Item Value Reference Range Interpretation Comments POC-Glucose Meter (test 139 mg/dL 70-110 H : TE STED AT [facility] code = 1538) [address] [facility], [address]: [employer] [place] Supervisor/Techni socrates ID = [id number] for Cook, Sridevi Lab Interpretation (test Abnormal code = 81642-2) [facility]-Glucose [id number] 11:00:26 Test Item Value Reference Range Interpretation Comments POC-Glucose Meter (test 139 mg/dL 70-110 H : TE STED AT [facility] code = 1538) [address] [place] [address], [address]70 30: [employer] Supervisor/Techni socrates ID = [id number] for Cook, Sridevi Lab Interpretation (test Abnormal code = 76985-1) [facility]-Glucose [id number] 11:00:26 Test Item Value Reference Range Interpretation Comments POC-Glucose Meter (test 139 mg/dL 70-110 H : TE STED AT [facility] code = 1538) [address] [place] [address], [address] 30: [employer] Supervisor/Techni socrates ID = [id number] for Cook, Sridevi Lab Interpretation (test Abnormal code = 69872-6) [facility]-Glucose [id number] 11:00:26 Test Item Value Reference Range Interpretation Comments POC-Glucose Meter (test 139 mg/dL 70-110 H : TE STED AT [facility] code = 1538) [address] [place] [address], 770 30: [employer] [facility] Supervisor/Techni socrates ID = [id number] for Cole, Sridevi Lab Interpretation (test Abnormal code = 20080-8) [facility]-Glucose [id number] 11:00:26 Test Item Value Reference Range Interpretation Comments POC-Glucose Meter (test 139 mg/dL 70-110 H : TE STED AT [facility] code = 1538) [address] [place] [address], 7[address] 30: [employer] Supervisor/Techni socrates ID = [id number] for Cook, Sridevi Lab Interpretation (test Abnormal code = 58189-2) [facility]-Glucose [id number] 11:00:26 Test Item Value Reference Range Interpretation Comments POC-Glucose Meter (test 139 mg/dL 70-110 H : TE STED AT [facility] code = 1538) [address] [place] [address], 770 30: [employer] Supervisor/Techni socrates ID = [id number] for Cook, Sridevi Lab Interpretation (test Abnormal code = 44615-9) [facility]-GLUCOSE [id number] 11:00:26 Test Item Value Reference Range Interpretation Comments POC-GLUCOSE METER 139 mg/dL 70-110 H : TESTED A T [facility] 6720 (BEAKER) (test code = KAREN Ramsey [facility], 1538) [address]: [employer] [place] [facility] Supervisor/Techni socrates ID = [id number] for Co Sridevi mccullough POCT-GLUCOSE [id number] 08:28:34 Test Item Value Reference Range Interpretation Comments POC-GLUCOSE METER 147 mg/dL 70-110 H : TESTED A T [facility] 6720 (BEAKER) (test code = KAREN Ramsey [facility], 1538) [address]: [employer] [place] [facility] Supervisor/Techni socrates ID = [id number] for Co sad[place], Sridevi BASIC METABOLIC [id number] 05:30:33 Test Item Value Reference Range Interpretation [...] not appl icable for dialysis patien ts [facility] Supervisor ID - TERRELL [id number] 05:30:33 Test Item Value Reference Range Interpretation Comments MAGNESIUM (BEAKER) (test code = 2.1 mg/dL 1.6-2.6 627) [facility] [place] Supervisor ID - TERRELL GCBC W/PLT COUNT & AUTO [id number] 05:08:16 Test Item Value Reference Range Interpretation [...] code = 416) BASOPHILS ABSOLUTE COUNT (AKER) 0.02 K/ L 0.01-0.08 (test code = 417) IMMATURE GRANULOCYTES-RELATIVE 0.20 % 0.00-1.00 PERCENT (AKER) (test code = 2801) POCT-GLUCOSE [id number] 22:18:08 Test Item Value Reference Range Interpretation Comments POC-GLUCOSE METER 150 mg/dL 70-110 H : Notified RN/MD: ([facility]) (test code = TESTED AT [facility] 6720 1538) [facility], [address]: [employer] [place] [facility] Supervisor/Techni socrates ID = [id number] for AVINASH HEMAHERNÁN POCT-GLUCOSE [id number] 18:35:11 Test Item Value Reference Range Interpretation Comments POC-GLUCOSE METER 153 mg/dL 70-110 H : TESTED A T [facility] 6720 ([facility]) (test code [facility], = 1538) [address]: [employer] [place] [facility] Supervisor/Techni socrates ID = [id number] for MINNIE VEEY POCT-GLUCOSE [id number] 12:18:53 Test Item Value Reference Range Interpretation Comments POC-GLUCOSE METER 149 mg/dL 70-110 H : TESTED A T [facility] 6720 (BEAKER) (test code [facility], = 1538) [address]: [employer] [place] [facility] Supervisor/Techni socrates ID = [id number] for NEGRITO PINO - MINNIE MARROQUINY POCT-GLUCOSE [id number] 09:02:22 Test Item Value Reference Range Interpretation Comments POC-GLUCOSE METER 138 mg/dL 70-110 H : TESTED A T [facility] 6720 (BEAKER) (test code [facility], = 1538) [address]: [employer] [place] [facility] Supervisor/Techni socrates ID = [id number] for LATT ODETTE - BRODERICK MARROQUIN BASIC METABOLIC [id number] 06:05:05 Test Item Value Reference Range Interpretation [...] not appl icable for dialysis patien ts [facility] Supervisor ID - [id number] 06:05:05 Test Item Value Reference Range Interpretation Comments MAGNESIUM (BEAKER) (test code = 2.1 mg/dL 1.6-2.6 627) [employer] [place] [facility] Supervisor ID - [id number] 06:05:05 Test Item Value Reference Range Interpretation Comments PHOSPHORUS (BEAKER) (test code = 4.8 mg/dL 2.3-4.7 H 604) [employer] [place] [facility] Supervisor ID - MARCOCBC W/PLT COUNT & AUTO [id number] 05:46:55 Test Item Value Reference Range Interpretation [...] PERCENT (BEAKER) (test code = 2801) POCT-GLUCOSE [id number] 20:25:43 Test Item Value Reference Range Interpretation Comments POC-GLUCOSE METER 153 mg/dL 70-110 H : TESTED Jyotsna Roman [facility] 6720 (BEAKER) (test code = KAREN [place], 1538) [address]: [employer] [place] [facility] Supervisor/Techni socrates ID = [id number] for Felicia Watkins POCT-GLUCOSE [id number] 18:10:56 Test Item Value Reference Range Interpretation Comments POC-GLUCOSE METER 162 mg/dL 70-110 H : TESTED A T [facility] 6720 (BEAKER) (test code [facility], = 1538) [address]: [employer] [place] [facility] Supervisor/Techni socrates ID = [id number] for LATT ODETTE - BRODERICK MARROQUIN POCT-GLUCOSE [id number] 13:16:14 Test Item Value Reference Range Interpretation Comments POC-GLUCOSE METER 133 mg/dL 70-110 H : TESTED A T [facility] 6720 (BEAKER) (test code [facility], = 1538) [address]: [employer] [place] [facility] Supervisor/Techni socrates ID = [id number] for LATT IMMICHAEL - CARA, BRODERICK POCT-GLUCOSE [id number] 08:50:00 Test Item Value Reference Range Interpretation Comments POC-GLUCOSE METER 122 mg/dL 70-110 H : TESTED A T [facility] 6720 (BEAKER) (test code [facility], = 1538) [address]: [employer] [place] [facility] Supervisor/Techni socrates ID = [id number] for LATT IMORE - CARA, BRODERICK CBC W/PLT COUNT & AUTO [id number] 05:50:43 Test Item Value Reference Range Interpretation [...] 0.00-1.00 PERCENT (BEAKER) (test code = 2801) [id number] 05:40:36 Test Item Value Reference Range Interpretation Comments PHOSPHORUS (BEAKER) 3.8 mg/dL 2.3-4.7 Specimen moderately (test code = 604) hemolyzed [facility] [place] [facility] Supervisor ID - AAHAMIDBASIC METABOLIC [id number] 05:40:36 Test Item Value Reference Range Interpretation [...] 358) GLUCOSE RANDOM 117 mg/dL 70-105 H (AJIT) (test code = 652) CALCIUM (BEAKER) 8.2 mg/dL 8.4-10.2 L (test code = 697) EGFR (AJIT) 62 Interpretatio n of eGFR (test code [...] not appl icable for dialysis patien ts [facility] [place] Supervisor ID - [id number] 05:40:35 Test Item Value Reference Range Interpretation Comments MAGNESIUM (AJIT) 2.2 mg/dL 1.6-2.6 Specimen moderately (test code = 627) hemolyzed [employer] [place] [facility] Supervisor ID - AAHAMIDPOCT-GLUCOSE [id number] 00:20:31 Test Item Value Reference Range Interpretation Comments POC-GLUCOSE METER 136 mg/dL 70-110 H : TESTED A T [facility] 6720 (AJIT) (test code = KAREN Ramsey [facility], 1538) [address]: [place] [facility] Supervisor/Techni socrates ID = [id number] for Gr oswald (contract), [facility] iliana ECG 12 [id number] 22:18:12Ventricular Rate 74 BPMAtrial Rate 74 BPMP-R Interval 150 msQRS Duration 150 msQ-T Interval 460 msQTC Calculation(Bazett) 510 msP Mosier 50 degreesR Mosier -50 degreesT Mosier 101 degrees Normal sinus rhythmLeft axis deviationLeft bundle branch blockAbnormal ECGWhen compared with ECG of 11-JUL-2019 18:29,Left bundle branch block is now PresentConfirmed by MIR KIM MD, MERVIN ([id number]) on 05/29/2022 10:18:08 [facility] POCT-GLUCOSE [id number] 16:54:24 Test Item Value Reference Range Interpretation Comments POC-GLUCOSE METER 160 mg/dL 70-110 H : TESTED A T [facility] 6720 (BEAKER) (test code = KAREN Ramsey [place], 1538) [address]: [employer] [place] [facility] Supervisor/Techni socrates ID = [id number] for Sridevi Flores POCT-GLUCOSE [id number] 15:00:16 Test Item Value Reference Range Interpretation Comments POC-GLUCOSE METER 169 mg/dL 70-110 H : TESTED A T [facility] 6720 (BEAKER) (test code = KAREN Ramsey [facility], 1538) [address]: [place] [facility] Supervisor/Techni socrates ID = [id number] for Iam macias (contract), Roberto th HEMOGLOBIN [id number] 08:42:39 Test Item Value Reference Range Interpretation [...] 5.7- 6.4% indicates increased risk for diabetes (prediabetes)."[facility] [facility] Supervisor ID - ADM [id number] 04:27:27 Test Item Value Reference Range Interpretation Comments MAGNESIUM (BEAKER) 2.1 mg/dL 1.6-2.6 Specimen slightly (test code = 627) hemolyzed [facility] [place] [facility] Supervisor ID - [id number] 04:27:27 Test Item Value Reference Range Interpretation Comments PHOSPHORUS (BEAKER) 3.0 mg/dL 2.3-4.7 Specimen slightly (test code = 604) hemolyzed [facility] [place] Supervisor ID - MARCOBASIC METABOLIC [id number] 04:27:27 Test Item Value Reference Range Interpretation [...] not appl icable for dialysis patien ts [facility] [place] Supervisor ID - MARCOCBC W/PLT COUNT & AUTO [id number] 04:02:29 Test Item Value Reference Range Interpretation [...] PERCENT (BEAKER) (test code = 2801) POCT-GLUCOSE [id number] 00:54:42 Test Item Value Reference Range Interpretation Comments POC-GLUCOSE METER 196 mg/dL 70-110 H : TESTED A T [facility] 6720 ([employer]) (test [facility] = [facility], 1538) [address]: [place] [facility] Supervisor/Techni socrates ID = [id number] for JAY BAILEY HIGH SENSITIVITY TROPONIN [id number] 19:05:12 Test Item Value Reference Range Interpretation Comments HIGH SENSITIVITY TROPONIN I (test 43 pg/ml <=17 H code = 6219897) [facility] [place] Supervisor ID - BSThe TOBACCO BUYER STAT High Sensitivity Troponin-I results should be used in conjunctionwith other diagnostic information such as ECG, clinical observations and information, and patient symptoms to aid in the diagnosis of NM.POCT-GLUCOSE [id number] 17:15:39 Test Item Value Reference Range Interpretation Comments POC-GLUCOSE METER 267 mg/dL 70-110 H : TESTED A T [facility] 6720 (BEAKER) (test code = KAREN Ramsey [facility], 1538) [address]: [place] [facility] Supervisor/Techni socrates ID = [id number] for Co Sridevi mccullough 2D Echo W/Doppler(CW/PW/Color)2022-05-28 16:04:49Ejection [facility]ractionSLEH [facility]Do[facility](CW/PW/Color)2022-05-28 16:04:49[facility](CW/PW/Color) 2022-05-28 16:04:49Ejection FractionSLEH [facility] W/Doppler(CW/PW/Color)2022-05-28 16:04:49Ejection [facility]SLEH [facility] W/Doppler(CW/PW/Color)2022-05-28 16:04:49Ejection [facility]LEH [facility] W[facility]Doppler(CW/PW/Color) 2022-05-28 16:04:49Ejection [facility]SLEH [facility] [id number] 12:13:16 Test Item Value Reference Range Interpretation Comments POC-GLUCOSE METER 257 mg/dL 70-110 H : Notified RN/MD: (AJIT) (test code = TESTED AT [place] [address] 1537) ELYSSA [facility], [address]: [place] Department Supervisor/Techni socrates ID = [id number] for LL PRAMOD HELLER TSH/FREE T4 IF [id number] 12:08:26 Test Item Value Reference Range Interpretation Comments THYROID STIMULATING HORMONE 0.911 uIU/mL 0.350-4.940 (AJIT) (test code = 772) [facility] [place] Supervisor ID - MMHIGH SENSITIVITY TROPONIN [id number] 11:54:08 Test Item Value Reference Range Interpretation Comments HIGH SENSITIVITY TROPONIN I (test 68 pg/ml <=17 H code = 9992827) [facility] [place] [facility] Supervisor ID - MMThe TOBACCO BUYER STAT High Sensitivity Troponin-I results should be used in conjunctionwith other diagnostic information such as ECG, clinical observations and information, and patient symptoms to aid in the diagnosis of NM.CBC W/PLT COUNT & AUTO [id number] 11:19:14 Test Item Value Reference Range Interpretation [...] (BEAKER) (test code = 2801) Respiratory Panel [id number] 11:14:11 Test Item Value Reference Range Interpretation Comments Human Metapneumovirus Not detected Not detected, (test code = 35477-5) Equivocal Rhinovirus (test code = Not detected Not detected, 47614-7) Equivocal INFLUENZA A (NO Not detected Not detected, SUBTYPE) (test code = Equivocal 23281-5) Influenza A subtype H1 (test code = 25392-5) Influenza A Subtype H3 (test code = 73697-9) Influenza A Subtype H1-2009 (test code = 56044-3) Influenza B (test code Not detected Not detected, = 51881-4) Equivocal Respiratory Syncytial Not detected Not detected, Virus (test code = Equivocal 91407-4) Parainfluenza Virus 1 Not detected Not detected, (test code = 86909-0) Equivocal Parainfluenza Virus 2 Not detected Not detected, (test code = 36689-1) Equivocal Parainfluenza virus 3 Not detected Not detected, (test code = 41055-6) Equivocal Parainfluenza Virus 4 Not detected Not detected, (test code = 40617-3) Equivocal Adenovirus (test code = Not detected Not detected, 70977-5) Equivocal Coronavirus 229E (test Not detected Not detected, code = 75427-6) Equivocal Coronavirus HKU1 (test Not detected Not detected, code = 14271-2) Equivocal Coronavirus NL63 (test Not detected Not detected, code = 85605-8) Equivocal Coronavirus OC43 (test Not detected Not detected, code = 88302-4) Equivocal Bordetella Pertussis Not detected Not detected, (test code = 12192-1) Equivocal Chlamydophila Not detected Not detected, Pneumoniae (test code = Equivocal 34440-6) Mycoplasma Pneumoniae Not detected Not detected, (test code = 77825-7) Equivocal Severe Acute Not detected Not detected, Wmrtbcuivbp-NxI-6 (test Equivocal code = 76587-0) Bordtella Parapertussis Not detected Not detected, (test code = 82864-3) Equivocal ALEXIS (test code = ALEXIS) Other viruses and bacteria not targeted by this PCR panel cannot be excluded; therefore clinical correlation and follow up of serology, culture results, and other molecular studies is required. The results are not intended to be used as the sole means for clinical diagnosis or patient management decisions. This sample was tested at the [facility] using the [employer] KnowledgeArray Respiratory Panel. It is FDA cleared and has been verified and approved by the [facility] for clinical use on nasopharyngeal swab specimens. The performance of the FilmArray RP has not been established in individuals who received influenza vaccine. Recent administration of a nasal influenza vaccine may cause false positive results for Influenza A and/orInfluenza B. [facility] [id number] 11:14:11 Test Item Value Reference Range Interpretation Comments Human Metapneumovirus Not detected Not detected, (test code = 32977-0) Equivocal Rhinovirus (test code = Not detected Not detected, 53262-5) Equivocal INFLUENZA A (NO Not detected Not detected, SUBTYPE) (test code = Equivocal 22918-5) Influenza A subtype H1 (test code = 27442-3) Influenza A Subtype H3 (test code = 86840-4) Influenza A Subtype H1-2009 (test code = 18050-5) Influenza B (test code Not detected Not detected, = 97651-5) Equivocal Respiratory Syncytial Not detected Not detected, Virus (test code = Equivocal 42799-8) Parainfluenza Virus 1 Not detected Not detected, (test code = 45008-7) Equivocal Parainfluenza Virus 2 Not detected Not detected, (test code = 47179-2) Equivocal Parainfluenza virus 3 Not detected Not detected, (test code = 00980-2) Equivocal Parainfluenza Virus 4 Not detected Not detected, (test code = 70493-8) Equivocal Adenovirus (test code = Not detected Not detected, 34461-2) Equivocal Coronavirus 229E (test Not detected Not detected, code = 12119-7) Equivocal Coronavirus HKU1 (test Not detected Not detected, code = 66038-5) Equivocal Coronavirus NL63 (test Not detected Not detected, code = 19385-2) Equivocal Coronavirus OC43 (test Not detected Not detected, code = 91968-8) Equivocal Bordetella Pertussis Not detected Not detected, (test code = 60392-8) Equivocal Chlamydophila Not detected Not detected, Pneumoniae (test code = Equivocal 10770-4) Mycoplasma Pneumoniae Not detected Not detected, (test code = 71566-0) Equivocal Severe Acute Not detected Not detected, Rivvoitawbw-KmH-6 (test Equivocal code = 91923-8) Bordtella Parapertussis Not detected Not detected, (test code = 67381-8) Equivocal ALEXIS (test code = ALEXIS) Other viruses and bacteria not targeted by this PCR panel cannot be excluded; therefore clinical correlation and follow up of serology, culture results, and other molecular studies is required. The results are not intended to be used as the sole means for clinical diagnosis or patient management decisions. This sample was tested at the [facility]ostics Laboratory using the [employer] KnowledgeArray Respiratory Panel. It is FDA cleared and has been verified and approved by the [facility] for clinical use on nasopharyngeal swab specimens. The performance of the FilmArray RP has not been established in individuals who received influenza vaccine. Recent administration of a nasal influenza vaccine may cause false positive results for Influenza A and/orInfluenza B. [facility] [id number] 11:14:11 Test Item Value Reference Range Interpretation Comments Human Metapneumovirus Not detected Not detected, (test code = 57951-7) Equivocal Rhinovirus (test code = Not detected Not detected, 74419-0) Equivocal INFLUENZA A (NO Not detected Not detected, SUBTYPE) (test code = Equivocal 20251-8) Influenza A subtype H1 (test code = 39829-8) Influenza A Subtype H3 (test code = 51642-5) Influenza A Subtype H1-2009 (test code = 05962-5) Influenza B (test code Not detected Not detected, = 49972-8) Equivocal Respiratory Syncytial Not detected Not detected, Virus (test code = Equivocal 97227-4) Parainfluenza Virus 1 Not detected Not detected, (test code = 08114-8) Equivocal Parainfluenza Virus 2 Not detected Not detected, (test code = 10497-6) Equivocal Parainfluenza virus 3 Not detected Not detected, (test code = 22653-4) Equivocal Parainfluenza Virus 4 Not detected Not detected, (test code = 73380-7) Equivocal Adenovirus (test code = Not detected Not detected, 19588-0) Equivocal Coronavirus 229E (test Not detected Not detected, code = 64165-1) Equivocal Coronavirus HKU1 (test Not detected Not detected, code = 09740-9) Equivocal Coronavirus NL63 (test Not detected Not detected, code = 60893-1) Equivocal Coronavirus OC43 (test Not detected Not detected, code = 68611-2) Equivocal Bordetella Pertussis Not detected Not detected, (test code = 98613-8) Equivocal Chlamydophila Not detected Not detected, Pneumoniae (test code = Equivocal 44730-1) Mycoplasma Pneumoniae Not detected Not detected, (test code = 07246-4) Equivocal Severe Acute Not detected Not detected, Nufokcqubbo-HqS-2 (test Equivocal code = 38183-4) Bordtella Parapertussis Not detected Not detected, (test code = 50524-5) Equivocal ALEXIS (test code = ALEXIS) Other viruses and bacteria not targeted by this PCR panel cannot be excluded; therefore clinical correlation and follow up of serology, culture results, and other molecular studies is required. The results are not intended to be used as the sole means for clinical diagnosis or patient management decisions. This sample was tested at the [facility] using the [employer] KnowledgeArray Respiratory Panel. It is FDA cleared and has been verified and approved by the [facility] for clinical use on nasopharyngeal swab specimens. The performance of the FilmArray RP has not been established in individuals who received influenza vaccine. Recent administration of a nasal influenza vaccine may cause false positive results for Influenza A and/orInfluenza B. [facility] [id number] 11:14:11 Test Item Value Reference Range Interpretation Comments Human Metapneumovirus Not detected Not detected, (test code = 46965-0) Equivocal Rhinovirus (test code = Not detected Not detected, 02856-6) Equivocal INFLUENZA A (NO Not detected Not detected, SUBTYPE) (test code = Equivocal 79488-5) Influenza A subtype H1 (test code = 51075-4) Influenza A Subtype H3 (test code = 19991-4) Influenza A Subtype H1-2009 (test code = 80378-5) Influenza B (test code Not detected Not detected, = 82771-7) Equivocal Respiratory Syncytial Not detected Not detected, Virus (test code = Equivocal 58809-3) Parainfluenza Virus 1 Not detected Not detected, (test code = 50436-2) Equivocal Parainfluenza Virus 2 Not detected Not detected, (test code = 80580-5) Equivocal Parainfluenza virus 3 Not detected Not detected, (test code = 15879-7) Equivocal Parainfluenza Virus 4 Not detected Not detected, (test code = 70054-7) Equivocal Adenovirus (test code = Not detected Not detected, 20901-4) Equivocal Coronavirus 229E (test Not detected Not detected, code = 69397-9) Equivocal Coronavirus HKU1 (test Not detected Not detected, code = 80689-3) Equivocal Coronavirus NL63 (test Not detected Not detected, code = 54052-4) Equivocal Coronavirus OC43 (test Not detected Not detected, code = 45332-0) Equivocal Bordetella Pertussis Not detected Not detected, (test code = 69001-6) Equivocal Chlamydophila Not detected Not detected, Pneumoniae (test code = Equivocal 80840-6) Mycoplasma Pneumoniae Not detected Not detected, (test code = 12995-2) Equivocal Severe Acute Not detected Not detected, Flvcumbdoxd-BwQ-4 (test Equivocal code = 62382-3) Bordtella Parapertussis Not detected Not detected, (test code = 06626-2) Equivocal ALEXIS (test code = ALEXIS) Other viruses and bacteria not targeted by this PCR panel cannot be excluded; therefore clinical correlation and follow up of serology, culture results, and other molecular studies is required. The results are not intended to be used as the sole means for clinical diagnosis or patient management decisions. This sample was tested at the [facility] using the [employer] KnowledgeArray Respiratory Panel. It is FDA cleared and has been verified and approved by the [facility] for clinical use on nasopharyngeal swab specimens. The performance of the FilmArray RP has not been established in individuals who received influenza vaccine. Recent administration of a nasal influenza vaccine may cause false positive results for Influenza A and/orInfluenza B. [facility] [id number] 11:14:11 Test Item Value Reference Range Interpretation Comments Human Metapneumovirus Not detected Not detected, (test code = 01348-4) Equivocal Rhinovirus (test code = Not detected Not detected, 95547-7) Equivocal INFLUENZA A (NO Not detected Not detected, SUBTYPE) (test code = Equivocal 71349-7) Influenza A subtype H1 (test code = 23938-0) Influenza A Subtype H3 (test code = 70722-8) Influenza A Subtype H1-2009 (test code = 12498-3) Influenza B (test code Not detected Not detected, = 09485-0) Equivocal Respiratory Syncytial Not detected Not detected, Virus (test code = Equivocal 98598-8) Parainfluenza Virus 1 Not detected Not detected, (test code = 14771-6) Equivocal Parainfluenza Virus 2 Not detected Not detected, (test code = 84663-2) Equivocal Parainfluenza virus 3 Not detected Not detected, (test code = 57162-0) Equivocal Parainfluenza Virus 4 Not detected Not detected, (test code = 24539-7) Equivocal Adenovirus (test code = Not detected Not detected, 78329-4) Equivocal Coronavirus 229E (test Not detected Not detected, code = 09785-1) Equivocal Coronavirus HKU1 (test Not detected Not detected, code = 44081-9) Equivocal Coronavirus NL63 (test Not detected Not detected, code = 86394-4) Equivocal Coronavirus OC43 (test Not detected Not detected, code = 97880-8) Equivocal Bordetella Pertussis Not detected Not detected, (test code = 17493-2) Equivocal Chlamydophila Not detected Not detected, Pneumoniae (test code = Equivocal 94601-0) Mycoplasma Pneumoniae Not detected Not detected, (test code = 47994-2) Equivocal Severe Acute Not detected Not detected, Hinqbweiejp-KoJ-4 (test Equivocal code = 00331-1) Bordtella Parapertussis Not detected Not detected, (test code = 37968-0) Equivocal ALEXIS (test code = ALEXIS) Other viruses and bacteria not targeted by this PCR panel cannot be excluded; therefore clinical correlation and follow up of serology, culture results, and other molecular studies is required. The results are not intended to be used as the sole means for clinical diagnosis or patient management decisions. This sample was tested at the [facility] using the [employer] Respiratory Panel. It is FDA cleared and has been verified and approved by the [facility] for clinical use on nasopharyngeal swab specimens. The performance of the Film[employer] RP has not been established in individuals who received influenza vaccine. Recent administration of a nasal influenza vaccine may cause false positive results for Influenza A and/orInfluenza B. [facility] [id number] 11:14:11 Test Item Value Reference Range Interpretation Comments Human Metapneumovirus Not detected Not detected, (test code = 26462-4) Equivocal Rhinovirus (test code = Not detected Not detected, 38245-8) Equivocal INFLUENZA A (NO Not detected Not detected, SUBTYPE) (test code = Equivocal 97503-2) Influenza A subtype H1 (test code = 65994-1) Influenza A Subtype H3 (test code = 02550-7) Influenza A Subtype H1-2009 (test code = 83065-3) Influenza B (test code Not detected Not detected, = 70263-3) Equivocal Respiratory Syncytial Not detected Not detected, Virus (test code = Equivocal 90393-5) Parainfluenza Virus 1 Not detected Not detected, (test code = 04502-2) Equivocal Parainfluenza Virus 2 Not detected Not detected, (test code = 47921-0) Equivocal Parainfluenza virus 3 Not detected Not detected, (test code = 98524-3) Equivocal Parainfluenza Virus 4 Not detected Not detected, (test code = 17643-9) Equivocal Adenovirus (test code = Not detected Not detected, 17429-6) Equivocal Coronavirus 229E (test Not detected Not detected, code = 24973-9) Equivocal Coronavirus HKU1 (test Not detected Not detected, code = 37506-3) Equivocal Coronavirus NL63 (test Not detected Not detected, code = 79804-0) Equivocal Coronavirus OC43 (test Not detected Not detected, code = 33402-2) Equivocal Bordetella Pertussis Not detected Not detected, (test code = 27920-8) Equivocal Chlamydophila Not detected Not detected, Pneumoniae (test code = Equivocal 04134-4) Mycoplasma Pneumoniae Not detected Not detected, (test code = 80407-8) Equivocal Severe Acute Not detected Not detected, Tuescskrhiy-ZaA-2 (test Equivocal code = 08356-7) Bordtella Parapertussis Not detected Not detected, (test code = 77786-9) Equivocal ALEXIS (test code = ALEXIS) Other viruses and bacteria not targeted by this PCR panel cannot be excluded; therefore clinical correlation and follow up of serology, culture results, and other molecular studies is required. The results are not intended to be used as the sole means for clinical diagnosis or patient management decisions. This sample was tested at the [facility] using the [employer] Respiratory Panel. It is FDA cleared and has been verified and approved by the [facility] for clinical use on nasopharyngeal swab specimens. The performance of the FilmArray RP has not been established in individuals who received influenza vaccine. Recent administration of a nasal influenza vaccine may cause false positive results for Influenza A and/orInfluenza B. [facility] [id number] 11:14:11 Test Item Value Reference Range Interpretation [...] SEVERE ACUTE RESPIRATORY Not detected Not detected, [id number]-DUEKYURXIQQ-5 Equivocal (test code = 1555519) BORDETELLA PARAPERTUSSIS Not detected Not detected, (BKR) (test code = 9775456) Equivocal Other viruses and bacteria not targeted by this PCR panel cannot be excluded; therefore clinical correlation and follow up of serology, culture results, and other molecular studies is required. The results are not intended to be used as the sole means for clinical diagnosis or patient management decisions. This sample was tested at the [facility] using the [employer] Respiratory Panel. It is FDA cleared and has been verified and approved by the [facility] for clinical use on nasopharyngeal swab specimens.The performance of the FilmArrayRP has not been established in individuals who received influenza vaccine. Recent administration of a nasal influenza vaccine may cause false positive results for Influenza A and/orInfluenza B.[id number] 10:49:18 Test Item Value Reference Range Interpretation Comments PROCALCITONIN (BEAKER) (test code = < ng/mL <0.05 3036) SEPSIS RISK (ng/mL)Low: 0.05-0.50Intermediate: 0.51-2.00High: >=2.01HIGH SENSITIVITY TROPONIN [id number] 10:36:58 Test Item Value Reference Range Interpretation Comments HIGH SENSITIVITY TROPONIN I (test 69 pg/ml <=17 H code = 7665805) [facility] Supervisor ID - MMThe TOBACCO BUYER STAT High Sensitivity Troponin-I results should be used in conjunctionwith other diagnostic information such as ECG, clinical observations and information, and patient symptoms to aid in the diagnosis of NM.B-TYPE NATRIURETIC FACTOR (BNP)2022-05-28 10:36:39 Test Item Value Reference Range Interpretation Comments B-TYPE NATRIURETIC PEPTIDE (BEAKER) 367 pg/mL 0-100 H (test code = 700) [facility] Supervisor ID - [id number] 09:16:13 Test Item Value Reference Range Interpretation Comments PHOSPHORUS (BEAKER) (test code = 3.0 mg/dL 2.3-4.7 604) [facility] Supervisor ID - MMCOMPREHENSIVE METABOLIC [id number] 09:16:12 Test Item Value Reference Range Interpretation [...] rted eGFR is based on the CKD-EPI 2020 equation t hat does not use a race coefficientEsti mated GFR is not as accur ate as Creatinine Dominique trujillo in predicting glom erular filtration rate . Estimated GFR is not appl icable for dialysis patien ts [facility] Supervisor ID - [id number] 09:16:12 Test Item Value Reference Range Interpretation Comments MAGNESIUM (BEAKER) (test code = 2.0 mg/dL 1.6-2.6 627) [facility] Supervisor ID - MMRAD, CHEST, 1 VIEW, NON [id number] 09:03:00Reason for exam:- >shortness of breathShould this be performed at the bedside?->Yes [facility] CENTERName: AMY WOMACK : 1935 [...] pneumonitis.Signed: Karen Pittmaneport Verified Date/Time: 05/28/2022 09:03:39 XR chest 1 view portable / [id number] 09:03:00 FINAL REPORT Exam: RAD, CHEST, 1 VIEW, NON [...] Karen Pittman MDReport Verified Date/Time: 05/28/2022 09:03:39 [facility] [id number] 08:50:45 Test Item Value Reference Range Interpretation Comments LACTATE BLOOD VENOUS 3.84 mmol/L 0.50-2.00 H Specime n moderately (2) (BEAKER) (test hemolyzed code = 2872) [facility] Supervisor ID - [id number] 08:47:24 Test Item Value Reference Range Interpretation Comments FIBRINOGEN LEVEL (BEAKER) (test 207 mg/dl 225-434 L code = 658) PROTHROMBIN TIME/[id number] 08:47:03 Test Item Value Reference Range Interpretation Comments PROTIME (BEAKER) (test code = 14.1 seconds 11.9-14.2 759) INR (BEAKER) (test code = 370) 1.11 <=5.90 RECOMMENDED COUMADIN/WARFARIN INR THERAPY RANGESSTANDARD DOSE: 2.0 - 3.0 Includes: PROPHYLAXIS for venous thrombosis, systemic embolization; TREATMENT for venous thrombosis and/or pulmonary embolus.HIGH RISK: Target INR is 2.5-3.5 for patients with mechanical heart valves.Blood gas, [id number] 08:43:53 Test Item Value Reference Range Interpretation Comments pH, Arterial (test code 7.52 7.35-7.45 H = 2744-1) pCO2, Arterial (test 32 See_Comment L [Autom ated message] code = 2019-8) The system [facility] generated this result transmit kendrick reference range : 35 - 45 mm Hg. The reference range was not used to interpret this result as normal/abnormal . pO2, Arterial (test 187 See_Comment H [Automa kendrick message] code = 2703-7) The system [employer] generated this result transmit kendrick reference range [...] 40.0 Lab Interpretation Abnormal (test code = 54521-8) [facility], [id number] 08:43:53 Test Item Value Reference Range Interpretation Comments pH, Arterial (test code 7.52 7.35-7.45 H = 2744-1) pCO2, Arterial (test 32 See_Comment L [Autom ated message] code = 2019-8) The system [employer] generated this result transmit kendrick reference range : 35 - 45 mm Hg. The reference range was not used to interpret this result as normal/abnormal . pO2, Arterial (test 187 See_Comment H [Automa kendrick message] code = 2703-7) The system [employer] generated this result transmit kendrick reference range [...] 40.0 Lab Interpretation Abnormal (test code = 71553-1) [facility], [id number] 08:43:53 Test Item Value Reference Range Interpretation Comments pH, Arterial (test code 7.52 7.35-7.45 H = 2744-1) pCO2, Arterial (test 32 See_Comment L [Autom ated message] code = 2019-) The system [employer] generated this result transmit kendrick reference range : 35 - 45 mm Hg. The reference range was not used to interpret this result as normal/abnormal . pO2, Arterial (test 187 See_Comment H [Automa kendrick message] code = 2703-7) The system [facility] generated this result transmit kendrick reference range [...] 40.0 Lab Interpretation Abnormal (test code = 32586-3) [facility], [id number] 08:43:53 Test Item Value Reference Range Interpretation Comments pH, Arterial (test code 7.52 7.35-7.45 H = 2744-1) pCO2, Arterial (test 32 See_Comment L [Autom ated message] code = 2019) The system [facility] generated this result transmit kendrick reference range : 35 - 45 mm Hg. The reference range was not used to interpret this result as normal/abnormal . pO2, Arterial (test 187 See_Comment H [Automa kendrick message] code = 2703-7) The system [facility] generated this result transmit kendrick reference range [...] 40.0 Lab Interpretation Abnormal (test code = 58702-7) [facility], [id number] 08:43:53 Test Item Value Reference Range Interpretation Comments pH, Arterial (test code 7.52 7.35-7.45 H = 2744-1) pCO2, Arterial (test 32 See_Comment L [Autom ated message] code = 2019) The system [employer] generated this result transmit kendrick reference range : 35 - 45 mm Hg. The reference range was not used to interpret this result as normal/abnormal . pO2, Arterial (test 187 See_Comment H [Automa kendrick message] code = 2703-7) The system [employer] generated this result transmit kendrick reference range [...] 40.0 Lab Interpretation Abnormal (test code = 94364-2) [facility], [id number] 08:43:53 Test Item Value Reference Range Interpretation Comments pH, Arterial (test code 7.52 7.35-7.45 H = 2744-1) pCO2, Arterial (test 32 See_Comment L [Autom ated message] code = 2018-09) The system [employer] generated this result transmit kendrick reference range : 35 - 45 mm Hg. The reference range was not used to interpret this result as normal/abnormal . pO2, Arterial (test 187 See_Comment H [Automa kendrick message] code = 2703-7) The system [employer] generated this result transmit kendrick reference range [...] 40.0 Lab Interpretation Abnormal (test code = 11650-5) [facility], [id number] 08:43:53 Test Item Value Reference Range Interpretation [...] FIO2 (BEAKER) (test code = 1819) 40.0 [id number] 00:00:00Ordered by an unspecified provider.[facility] Hospital[facility] WITH [id number] 00:09:18 Test Item Value Reference Range Interpretation Comments WBC (test code = See_Comment [Automated 8301-2) message] The sy stem which generated this result transmitted reference range : 4.30 - 11.10 10*3/?L. The reference range was not used to interpret this result as normal/abnormal . RBC (test code = See_Comment [Automated 022-8) message] The sy stem which generated this [...] RDW-SD (test code = 45.1 fL 39.0-49.9 24443-2) RDW-CV (test code = 15.3 % 12.0-15.5 788-0) PLT (test code = See_Comment [Automated 777-3) message] The sy stem which generated this result transmitted reference range : 166 - 358 10*3/ ?L. The reference r nanci was not used to interpret this result as normal/abnormal . MPV (test code = 11.4 fL 9.5-12.9 77888-8) NRBC/100 WBC (test See_Comment [Automat ed code = 2958434520) message] The system which generated this result transmitted reference range : 0.0 - 10.0 /100 WBCs. The refer ence range was not u sed to interpret th is result as normal/abnormal . NRBC x10^3 (test code See_Comment [Auto mated = 1761636196) message] The s ystem which generated this result transmitted reference range : 10*3/?L. The reference range was not used to interpret this result as normal/abnormal . GRAN MAT (NEUT) % 57.0 % (test code = 770-8) IMM GRAN % (test code 0.30 % = 4169085475) LYMPH % (test code = 32.1 % 736-9) MONO % (test code = 7.8 % 5905-5) EOS % (test code = 2.5 % 713-8) BASO % (test code = 0.3 % 706-2) GRAN MAT x10^3(ANC) 4.26 10*3/uL 1.88-7.09 (test code = 0784082542) IMM GRAN x10^3 (test 0.00-0.06 code = 1163290111) LYMPH x10^3 (test code 2.40 10*3/uL 1.32-3.29 = 731-0) MONO x10^3 (test code 0.58 10*3/uL 0.33-0.92 = 742-7) EOS x10^3 (test code = 0.19 10*3/uL 0.03-0.39 711-2) BASO x10^3 (test code 0.01-0.07 = 704-7) Lab Interpretation Abnormal (test code = 57741-9) [facility] WITH [id number] 00:09:18 Test Item Value Reference Range Interpretation [...] RDW-SD (test code = 45.1 fL 39.0-49.9 23918-9) RDW-CV (test code = 15.3 % 12.0-15.5 788-0) PLT (test code = 332 See_Comment [Automated 777-3) message] The sy stem which generated this result transmitted reference range : 166 - 358 10*3/ ?L. The reference r nanci was not used to interpret this result as normal/abnormal . MPV (test code = 11.4 fL 9.5-12.9 36569-4) NRBC/100 WBC (test 0.0 See_Comment [Automat ed code = 9939584460) message] The system which generated this result transmitted reference range : 0.0 - 10.0 /100 WBCs. The refer ence range was not u sed to interpret th is result as normal/abnormal . NRBC x10^3 (test code See_Comment [Auto mated = 5689052656) message] The s ystem which generated this result transmitted reference range : 10*3/?L. The reference range was not used to interpret this result as normal/abnormal . GRAN MAT (NEUT) % 57.0 % (test code = 770-8) IMM GRAN % (test code 0.30 % = 1384948125) LYMPH % (test code = 32.1 % 736-9) MONO % (test code = 7.8 % 5905-5) EOS % (test code = 2.5 % 713-8) BASO % (test code = 0.3 % 706-2) GRAN MAT x10^3(ANC) 4.26 10*3/uL 1.88-7.09 (test code = 2063373376) IMM GRAN x10^3 (test 0.00-0.06 code = 2295923252) LYMPH x10^3 (test code 2.40 10*3/uL 1.32-3.29 = 731-0) MONO x10^3 (test code 0.58 10*3/uL 0.33-0.92 = 742-7) EOS x10^3 (test code = 0.19 10*3/uL 0.03-0.39 711-2) BASO x10^3 (test code 0.01-0.07 = 704-7) Lab Interpretation Abnormal (test code = 99964-8) [facility] WITH [id number] 00:09:18 Test Item Value Reference Range Interpretation Comments WBC (test code = 7.47 See_Comment [Automated 4312-2) message] The sy stem which generated this result transmitted reference range : 4.30 - 11.10 10*3/?L. The reference range was not used to interpret this result as normal/abnormal . RBC (test code = 4.42 See_Comment [Automated 843-8) message] The sy stem which generated this [...] RDW-SD (test code = 45.1 fL 39.0-49.9 45801-1) RDW-CV (test code = 15.3 % 12.0-15.5 788-0) PLT (test code = 332 See_Comment [Automated 777-3) message] The sy stem which generated this result transmitted reference range : 166 - 358 10*3/ ?L. The reference r nanci was not used to interpret this result as normal/abnormal . MPV (test code = 11.4 fL 9.5-12.9 89110-0) NRBC/100 WBC (test 0.0 See_Comment [Automat ed code = 0038744832) message] The system which generated this result transmitted reference range : 0.0 - 10.0 /100 WBCs. The refer ence range was not u sed to interpret th is result as normal/abnormal . NRBC x10^3 (test code See_Comment [Auto mated = 0555491056) message] The s ystem which generated this result transmitted reference range : 10*3/?L. The reference range was not used to interpret this result as normal/abnormal . GRAN MAT (NEUT) % 57.0 % (test code = 770-8) IMM GRAN % (test code 0.30 % = 2134501377) LYMPH % (test code = 32.1 % 736-9) MONO % (test code = 7.8 % 5905-5) EOS % (test code = 2.5 % 713-8) BASO % (test code = 0.3 % 706-2) GRAN MAT x10^3(ANC) 4.26 10*3/uL 1.88-7.09 (test code = 2630805005) IMM GRAN x10^3 (test 0.00-0.06 code = 7808824373) LYMPH x10^3 (test code 2.40 10*3/uL 1.32-3.29 = 731-0) MONO x10^3 (test code 0.58 10*3/uL 0.33-0.92 = 742-7) EOS x10^3 (test code = 0.19 10*3/uL 0.03-0.39 711-2) BASO x10^3 (test code 0.01-0.07 = 704-7) Lab Interpretation Abnormal (test code = 26560-1) [facility] (71491)2021-09-03 20:37:56 Test Item Value Reference Range Interpretation Comments NA (test code = 138 mmol/L 135-145 4204513987) K (test code = 4.4 mmol/L 3.5-5.0 8755173742) CL (test code = 99 mmol/L 98-108 7728780614) CO2 TOTAL (test code = 28 mmol/L 23-31 0460326047) AGAP (test code = 11 2-16 2373665161) BUN (test code = 18 mg/dL 7-23 7817161445) GLUCOSE (test code = 122 mg/dL 70-110 H 0024130869) CREATININE (test code = 0.59 mg/dL 0.50-1.04 5947508839) TOTAL BILI (test code = 0.5 mg/dL 0.1-1.4 7877649996) CALCIUM (test code = 9.0 mg/dL 8.6-10.6 4791372134) T PROTEIN (test code = 6.6 g/dL 6.3-8.2 4245408923) ALBUMIN (test code = 4.1 g/dL 3.5-5.0 8172796103) ALK PHOS (test code = 91 U/L 34-122 8515446347) ALTv (test code = 21 U/L 5-35 1742-6) AST(SGOT) (test code = 27 U/L 13-40 4533892529) eGFR (test code = 96.9 mL/min/1.73m2 5484511733) ALEXIS (test code = ALEXIS) Association of [...] tests). Lab Interpretation Abnormal (test code = 03715-7) [facility] 20:37:36 Test Item Value Reference Range Interpretation Comments LIPASE (test code = 1672598198) 184 U/L 0-220 Lab Interpretation (test code = Normal 08215-9) [facility] WITH [id number] 19:27:42 Test Item Value Reference Range Interpretation Comments WBC (test code = 8.34 See_Comment [Automated 4077-2) message] The sy stem which generated this result transmitted reference range : 4.30 - 11.10 10*3/?L. The reference range was not used to interpret this result as normal/abnormal . RBC (test code = 4.38 See_Comment [Automated 888-5) message] The sy stem which generated this [...] RDW-SD (test code = 48.8 fL 39.0-49.9 02463-8) RDW-CV (test code = 15.2 % 12.0-15.5 788-0) PLT (test code = 291 See_Comment [Automated 777-3) message] The sy stem which generated this result transmitted reference range : 166 - 358 10*3/ ?L. The reference r nanci was not used to interpret this result as normal/abnormal . MPV (test code = 11.2 fL 9.5-12.9 67771-3) NRBC/100 WBC (test 0.0 See_Comment [Automat ed code = 5177109298) message] The system which generated this result transmitted reference range : 0.0 - 10.0 /100 WBCs. The refer ence range was not u sed to interpret th is result as normal/abnormal . NRBC x10^3 (test code See_Comment [Auto mated = 5879433241) message] The s ystem which generated this result transmitted reference range : 10*3/?L. The reference range was not used to interpret this result as normal/abnormal . GRAN MAT (NEUT) % 60.5 % (test code = 770-8) IMM GRAN % (test code 0.40 % = 2538118462) LYMPH % (test code = 27.5 % 736-9) MONO % (test code = 8.3 % 5905-5) EOS % (test code = 2.9 % 713-8) BASO % (test code = 0.4 % 706-2) GRAN MAT x10^3(ANC) 5.06 10*3/uL 1.88-7.09 (test code = 1871287716) IMM GRAN x10^3 (test 0.03 10*3/uL 0.00-0.06 code = 6715363410) LYMPH x10^3 (test code 2.29 10*3/uL 1.32-3.29 = 731-0) MONO x10^3 (test code 0.69 10*3/uL 0.33-0.92 = 742-7) EOS x10^3 (test code = 0.24 10*3/uL 0.03-0.39 711-2) BASO x10^3 (test code 0.03 10*3/uL 0.01-0.07 = 704-7) Lab Interpretation Abnormal (test code = 66197-9) [facility] HospitalFL, FLUORO, NON-SPECIFIC, UP TO 1 HOUR 2019-07-14 09:44:00Reason for exam:->cystoFINAL REPORT A fluoroscopic unit was utilized for a procedure performed in the operating room. No interpretation was requested. Please refer to the operative report regarding findings. Please refer to PACS for patient radiation dose information. Signed: JR Elizabeth, Alla Mast Verified Date/Time: 07/14/2019 09:44:15 Reading Location: [address] Neuro Reading Room BLOOD [id number] 11:00:00 Test Item Value Reference Range Interpretation Comments CULTURE (BEAKER) (test No growth in 5 days code = 1095) BLOOD [id number] 11:00:00 Test Item Value Reference Range Interpretation Comments CULTURE (BEAKER) (test No growth in 5 days code = 1095) URINE [id number] 11:07:00 Test Item Value Reference Range Interpretation Comments CULTURE (BEAKER) (test code = 1095) No growth ANG, NEPHROSTOMY, PERC, EXTERNAL [id number] 11:00:00Reason for exam:- >request left PCN for left obstructing stone, feversFINAL REPORT Procedure: Percutaneous nephrostomy catheter placement. History: Left ureteric calculus with obstruction, infection. Transportation Operations Manager: Bradford Matthew M.D. Windshield Repair Technician: Nargis mckeon M.D. Modality: Ultrasound and fluoroscopy. [...] local infiltration Medicines: Not applicable Contrast medium: Tbhtgh666, 15 cc. Estimated blood loss: < 5 [...] anesthesia and dermatotomy, under real-time ultrasonographic guidance, [id number] Chiba needle was advanced into the calyx. After confirming the recovery of urine, a guidewire was advanced into the collecting system under fluoroscopic guidance. Contrast injection confirmed satisfactory position of the access system. Over the wire, following sequential dilatation of the tract, an 8.5 Surinamese nephrostomy catheter was placed, pigtail locked in [...] bladder. Impression:Successful ultrasound and fluoroscopic guided 8.5 Surinamese nephrostomy catheter placement left kidney via a posterior inferior calyx as described above. Further management dictated by the clinical scenario. The nephrostomy catheter(s) should be exchanged at the latest in three months. Thank you for the opportunity to assist in the care of your patient. Signed: Bradford Matthew MDReport Verified Date/Time: 07/10/2019 11:00:12 Reading Location: [place] [address] Angio Body Reading Room BASIC METABOLIC [id number] 07:33:00 Test Item Value Reference Range Interpretation [...] 1092) DATA TO CALCULA TE ESTIMATED GFR. [facility] Supervisor ID - MONIE [id number] 07:25:00 Test Item Value Reference Range Interpretation Comments MAGNESIUM (BEAKER) (test code = 2.2 mg/dL 1.6-2.6 627) [facility] Supervisor ID - MONIE CHEPATIC FUNCTION [id number] 07:25:00 Test Item Value Reference Range Interpretation [...] (test code = 43 U/L 6-55 347) [facility] Supervisor ID - MONIE CCBC W/PLT COUNT & AUTO [id number] 06:54:00 Test Item Value Reference Range Interpretation [...] (BEAKER) (test code = 2801) BASIC METABOLIC [id number] 05:38:00 Test Item Value Reference Range Interpretation [...] 1092) DATA TO CALCULA TE ESTIMATED GFR. [facility] Supervisor ID - [id number] 05:24:00 Test Item Value Reference Range Interpretation Comments MAGNESIUM (BEAKER) (test code = 1.8 mg/dL 1.6-2.6 627) [facility] Supervisor ID - LAHEPATIC FUNCTION [id number] 05:24:00 Test Item Value Reference Range Interpretation [...] (test code = 36 U/L 6-55 347) [facility] Supervisor ID - LACBC W/PLT COUNT & AUTO [id number] 04:34:00 Test Item Value Reference Range Interpretation [...] (BEAKER) (test code = 2801) LACTIC ACID, [id number] 20:25:00 Test Item Value Reference Range Interpretation Comments LACTATE BLOOD VENOUS (2) (BEAKER) 0.69 mmol/L 0.50-2.20 (test code = 2872) [facility] Supervisor ID - NTPRAD, CHEST, 1 VIEW, NON [id number] 16:24:00Reason for exam:->feverShould this be performed at the bedside?->YesFINAL REPORT CLINICAL HISTORY: fever TECHNIQUE: 1 view of the chest. COMPARISON: None IMPRESSION: There is possible retrocardiac left lower lobe consolidation, for which clinical correlation for pneumonia is requested. There is blunting of the left costophrenic angle. The heart isnot enlarged. Signed: Rich Rebolledo MDReport Verified Date/Time: 07/08/2019 16:24:52 Reading Location: [address] Neuro Reading Room HEMOGLOBIN [id number] 13:56:00 Test Item Value Reference Range Interpretation Comments HEMOGLOBIN A1C (BEAKER) (test code = 6.1 % 4.3-6.1 368) URINALYSIS W/ REFLEX URINE [id number] 13:15:00 Test Item Value Reference Range Interpretation [...] = 516) SOURCE(BEAKER) (test code = 2795) [facility] Supervisor ID - [auto][facility] Supervisor ID - techRESPIRATORY PANEL [id number] 12:14:00 Test Item Value Reference Range Interpretation [...] decisions. This sample was tested at the [facility] using the My Single Point FilmArray Respiratory Panel. It is FDA cleared and has been verified and approved by the [facility] for clinical use [...] Not Detected Not Detected, Negative code = 5144293) SARS-COV-2 PERFORMING LAB [facility] (test code = 5469654) Negative results do not preclude SARS-CoV-2 infection [...] of the Act.Fact Sheet for Healthcare Pro viders:https://www.Wetpaint.HealthLok/Documents/Xpert%20Xpress%20SARS%20CoV-2/Fact%20Sh eets/302-3802%69FGIE-RLS-6%20HEALTHCARE%20PROVIDERS%20FACT%20SHEET.pdfFact Sheet for Healthcare Patients:https://www.ByRead.HealthLok/Documents/Xpert%20Xpress%20SARS%20CoV-2/Fact%20Sheets/302-3801%20SARS-COV -2%20PATIENT%20FACT%20SHEET.pdfPerforming Laboratory:[facility] [place] [address] 81569KOLUG METABOLIC [id number] 10:06:00 Test Item Value Reference Range Interpretation [...] 1092) DATA TO CALCULA TE ESTIMATED GFR. [facility] [place] Supervisor ID - [id number] 10:05:00 Test Item Value Reference Range Interpretation Comments MAGNESIUM (BEAKER) (test code = 2.0 mg/dL 1.6-2.6 627) [facility] [place] Supervisor ID - NTPHEPATIC FUNCTION [id number] 10:05:00 Test Item Value Reference Range Interpretation [...] (test code = 30 U/L 6-55 347) [facility] [place] Supervisor ID - NTPPT/[id number] 09:53:00 Test Item Value Reference Range Interpretation [...] 2.5-3.5 for patients wiht mechanical heart valves.PROTHROMBIN TIME/[id number] 09:51:00 Test Item Value Reference Range Interpretation [...] for patients wiht mechanical heart valves.LACTIC ACID, [id number] 09:50:00 Test Item Value Reference Range Interpretation Comments LACTATE BLOOD VENOUS (2) (BEAKER) 2.87 mmol/L 0.50-2.20 H (test code = 6962) [facility] [place] Supervisor ID - NTPCBC W/PLT COUNT & AUTO [id number] 09:41:00 Test Item Value Reference Range Interpretation [...] 417) IMMATURE GRANULOCYTES-RELATIVE 0 % 0-1 PERCENT (AIJT) (test code = 2801) Progress Notes Date/Time Note Provider Source 2022-09-08 11:30:00 5645-80-58P89:30:00Formatting of this note [facility] might be different from the original.Elevated NT-proBNP noted at 969 which is increased compared to 2 months ago done in our hospital but better than the recent admission in the hospital from [place].CMP within acceptable limits.Patient's son has habit of changing the Lasix as per the need. Please ask what the current dose of Lasix he has been giving her.I also recommend referring her to heart failure clinic in [place] for further management of her underlying heart failure. 62219-8Sllbacdb aotfWX7680-89-96E66:55:54Progress noteTXT1.2.840.532866.1.13.104.2.7.2.15492 9|[id number] for patient [address] Zw[id number] POGVYBCSNVNZJGEI8471-16-51D55:55:541.2.840 .413636.1.72.3.15|1.2.840.709314.1.13.104. 2.7.2.727879_[id number] Notes Date/Time Note Provider Source 2022-10-31 08:59:41 0297-30-99N36:59:41Formatting of Michelle rabago RN [facility] this note might be different from the original.Patient returned call, notified of Lab results and recommendations on diuretics, verbalized understanding via teach back 39610-0Qlkasudze encounter UjnwVG7500-65-12D99:00:47Telephone encounter NoteTXT1.2.840.154855.1.13.104.2.7. 2.625058|[id number] for patient ydje14636-4YalwTP914555561Zudnx A Roller RN[id number] 7RRJWEEGEWIBIMPYTDKCVXU7013-62-25W1 9:00:471.2.840.087971.1.72.3.15|1.2 .840.100028.1.13.104.2.7.2.727879_1 [id number] 2022-10-28 16:19:54 9071-37-39U46:19:54Formatting of [facility] this note might be different from the original.2nd attempt. Mailbox is full. 13058-9Xyttvnruv encounter YjclCJ6390-92-18H86:20:23Telephone encounter NoteTXT1.2.840.185574.1.13.104.2.7. 2.659477|[id number] for patient mfyt74317-8WqfrHSUSSXLEVZ[id number] 0YHJUBJNGUEMCSLRKLEVUPD3413-76-94F4 6:20:231.2.840.350877.1.72.3.15|1.2 .840.407889.1.13.104.2.7.2.727879_1 [id number] 2022-10-28 08:48:03 2342-73-22E09:48:03Formatting of Marcelina jones RN [facility] this note might be different from the original.Images from the original note were not included.Attempted to contact patient with results/recommendations. Unable to LVM. Ceci Lo MD P Cardiology NurseCMP within acceptable stable limits. NT-proBNP improving currently at 766 compared to 969 1 month ago. Magnesium normal. Continue with the current dose of diuretics without any further changes. Currently has been taking Lasix 80 twice daily along with spironolactone 12.5 as needed 87612-4Ekrnudyna encounter FqunAE7957-08-87H73:48:31Telephone encounter NoteTXT1.2.840.843723.1.13.104.2.7. 2.408139|[id number] for patient [id number] Ronald PALAFOXUT[id number] 5LZWWUEGSRZWEDZEHUXCGEH0460-37-38F5 8:48:311.2.840.482008.1.72.3.15|1.2 .840.123034.1.13.104.2.7.2.727879_1 [id number] 2022-10-26 11:15:00 3615-17-78P76:15:00Formatting of [facility] this note is different from the original.Images from the original note were not included.Venipuncture collection performed by clean technique on the back of left hand. Total of 1 attempts were made. Slight pressure and a bandage/dressing were applied to the site(s). The patient experienced no complications. The following specimens were processed according to instructions and sent to [facility] laboratories per lab order on 10/26/2022: LT BLUE SST 1 RED LAV PPT DK GREEN (LiHep) DK GREEN (SodH) [place] DK BLUE (K2) DK BLUE (S) ACD Blood Culture NIPT/NTD 47882-2Ezdzl VxqfDP1486-16-05F88:26:44Nurse NoteTXT1.2.840.769811.1.13.104.2.7. 2.000496|[id number] for patient spnh36688-1Fapla NoteLN[id number] 8NOJKXRORMYAUCLYGFAMFYJ5374-00-71A4 1:26:441.2.840.249203.1.72.3.15|1.2 .840.669768.1.13.104.2.7.2.727879_1 [id number] 2022-09-28 08:18:48 8067-93-44M58:18:48Formatting of Yue Basurto [facility] this note is different from the [place] original.Images from the original note were not included. Pulmonology & Allergy: Beta Agonists and Anti-muscarinics Failed 09/27/2022 12:40 PM Protocol Details Manual Review: If patient not on inhaled steroid and using bronchodilator more than twice weekly for more than 4 weeks or is having a night cough patient should be seen immediately. Manual Review: Staff refilling for allergy - 1 month supply only unless insurance requires a 3 month supply, then 3 month supply approved. Valid encounter within last 12 months Please review and refill if appropriate ipratropium 0.02 % nebulizer solution 1 Each 08/09/2022 Recent VisitsDate Type Provider Dept 09/08/22 Office Visit Angela [...] Med 12/24/21 Office Visit Chary Donald PA [facility] 12/03/21 Office Visit Angela Cunningham MD [facility] 10/25/21 Office Visit Angela Cunningham MD [facility] Showing recent visits within past 540 days with a meds authorizing provider and meeting all other requirementsFuture AppointmentsDate Type Provider Dept 10/07/22 Appointment Angela Cunningham MD [facility] Showing future appointments within next 150 days with a meds authorizing provider and meeting all other requirements 45474-4Pfrluuoic encounter XezuVY8423-66-01Q09:19:52Telephone encounter NoteTXT1.2.840.184682.1.13.104.2.7. 2.658468|[id number] for patient ebis00017-5ZuvoKZ830685089Zxitfltg Y Ruiz [address] Pr[id number] 9PBRAIMHXBCIZTXAHMFWQRP7629-29-78N6 8:19:521.2.840.355581.1.72.3.15|1.2 .840.889732.1.13.104.2.7.2.727879_1 [id number] 2022-09-12 14:55:56 4745-67-72M18:55:56Formatting of Debi Rousseau [facility] this note might be different from [place] the original.Images from the original note were not included.Attempted to Call patient for results. No answer will try back a little later. Ceci Lo MD P Cardiology NurseElevated NT-proBNP noted at 969 which is increased compared to 2 months ago done in our hospital but better than the recent admission in the hospital from [place]. CMP within acceptable limits. Patient's son has habit of changing the Lasix as per the need. Please ask what the current dose of Lasix he has been giving her. I also recommend referring her to heart failure clinic in [place] for further management of her underlying heart failure. 67633-2Zpzkaoenh encounter BzjsUC8681-34-64Y72:02:35Telephone encounter NoteTXT1.2.840.822866.1.13.104.2.7. 2.771337|[id number] for patient kmoe54902-3EbcyIW800949266Fzjmaog Castillo [id number] 0PIGSNDLHIMTDPSTMHPJZPO6721-00-03F3 5:02:351.2.840.056146.1.72.3.15|1.2 .840.223426.1.13.104.2.7.2.727879_1 [id number] 2022-09-08 11:30:00 8597-95-04Q58:30:00Formatting of Marie Cui [facility] this note is different from the original.Images from the original note were not included.Patient requested to have labs drawn for Angela Cunningham MD and Ceci Lo MD due to the upcoming appointment on 09/22/22. Marie Armstrong 09/08/2022 11:35 AMVenipuncture collection performed by clean technique on the back of right hand. Total of 1 attempts were made. Slight pressure and a bandage/dressing were applied to the site(s). The patient experienced no complications. The following specimens were processed according to instructions and sent to [facility] laboratories per lab order on 09/08/2022 LT BLUE SST 1 RED LAV 1 PPT DK GREEN (LiHep) DK GREEN (SodH) [place] DK BLUE (K2) DK BLUE (S) ACD Blood Culture NIPT/NTD 95156-2Aeipl YqevBP7723-76-54Y93:35:51Nurse NoteTXT1.2.840.446667.1.13.104.2.7. 2.018510|[id number] for patient [id number] [id number] 6TTTIFYTTDMCHXUMZXCEDUY1373-43-10H5 1:35:511.2.840.470996.1.72.3.15|1.2 .840.320005.1.13.104.2.7.2.727879_1 [id number] 2022-09-08 11:30:00 8073-68-81X39:30:00 Addended by: [facility] CECI LO on: 09/08/2022 11:05 PM Modules accepted: Orders 86038-2Yhcizqxx GiqilbuvUY3327-53-63M44:05:57Addend um DocumentTXT1.2.840.408723.1.13.104. 2.7.2.928436|[id number] for patient care[address] JbbmW[id number] 5MMWRWFPEDMZYLVANCRFGLK1917-62-71K6 3:05:571.2.840.546088.1.72.3.15|1.2 .840.840381.1.13.104.2.7.2.727879_1 [id number]
[2023-01-04 06:39] LABS: Absolute Lymphocytes (CBC) 4.3 K/uL (0.7-4.9); Lymphocytes % 36.9 % (15.3-44.8); MCV 84.2 fL (80-100); MPV 8.5 fL (7.6-11.3); Platelets 341 thou/uL (152-406); RBC Red Blood Cell Count 5.34 M/uL (3.86-4.86)
[2023-01-04] MEDS ORDERED: METHYLPREDNISOLONE 125 MG INJ ONE (07:07)
[2023-01-04] MEDS ORDERED: FUROSEMIDE 40 MG/4 ML VIAL ONE (07:08)
[2023-01-04] MEDS ORDERED: NITROGLYCERIN 1 GM PKT TD ONE (07:08)
[2023-01-04] MEDS ORDERED: ALBUTEROL 2.5 MG/3 ML NEB SOL ONE (07:08)
[2023-01-04 07:40] LABS: Albumin 2.9 g/dL (3.4-5.0); Bilirubin Direct 0.2 mg/dL (0-0.2); Bilirubin Indirect, Calculated 0.3 mg/dL (0.2-0.8); Bilirubin Total 0.5 mg/dL (0.2-1.0); Magnesium 2.2 mg/dL (1.6-2.4); Potassium 3.2 mEq/L (3.5-5.1); Protein, Total 6.7 g/dL (6.4-8.2)
--- NOTE | 2023-01-04 07:40 | RAD REPORT ---
[facility] CLINICAL HISTORY: CHEST PAIN COMPARISON: Chest Single View dated 12/16/2022; Chest Single View dated 11/18/2022; Chest Single View dated 11/17/2022; Chest Single View dated 11/01/2022 TECHNIQUE: Portable AP view of the chest. FINDINGS: Progressive central fluffy opacities. Interstitial prominence, partly chronic, worsened si nce the prior exam. No pneumothorax or effusion. The cardiomediastinal contours are unremarkable. IMPRESSION: Findings suggestive of early pulmonary edema. Superimposed pneumonia is considered less likely but not entirely excluded.
[2023-01-04 07:42] LABS: Troponin High Sensitivity 69.6 pg/mL (<58.9)
--- NOTE | 2023-01-04 07:45 | EDPHYS ---
Physician Documentation [facility] Name: Erika Jacobson Age: 87 yrs Sex: Female : 1935 Arrival Date: 01/04/2023 Time: 06:09 Bed 4 Private MD: ED Physician Kyle Low HPI: 01/04 06:19 This 87 yrs old Female presents to ER via Unassigned with complaints of sp4 Breathing Difficulty. 06:19 It is 7-year-old female brought in by her family with acute respiratory distress sp4 hypoxemia bilateral starting acutely this morning. Patient dyspneic on arrival not able to provide any history. ROS not available secondary to respiratory distress. . Last admission record 11/17/2022 for acute on chronic systolic heart failure, acute respiratory failure with hypoxemia, pulmonary edema, hypertension. Patient has additional history of obesity, asthma, diastolic heart failure, hyperlipidemia, hypertension. Patient responded very well during hospitalization to IV Lasix. Patient's medications include aspirin 81 mg daily, atorvastatin 20 mg daily, losartan 25 mg daily, albuterol/ipratropium as needed, furosemide 40 mg twice daily, spironolactone 25 mg p.o. daily, carvedilol 1 tab twice daily, metformin twice daily. Historical: - Allergies: 06:48 No Known Allergies; vc1 - PMHx: 06:48 Asthma; Congestive heart failure; CVA; Hyperlipidemia; Hypertension; vc1 - PSHx: 06:48 choleycestectomy; hysterectomy; kidney stones; vc1 - Immunization history:: Client reports receiving the 2nd dose of the Covid vaccine, Flu vaccine is up to date. - Social history:: Smoking status: Patient denies any tobacco usage or history of. - Family history:: not pertinent. ROS: 06:21 Constitutional: Negative for fever, chills, and weight loss, sp4 06:21 Respiratory: Positive for dyspnea positive for cough 06:21 All other systems are negative, 06:21 Unable to obtain ROS due to patient distress, Exam: 06:21 Constitutional: This is a well developed, well nourished patient who is awake, patient sp4 is in moderate to severe respiratory distress, pale, hypoxemic on the monitor, tachypnea, tachycardia, diffuse expiratory crackles Head/Face: Normocephalic, atraumatic. Eyes: Pupils equal round and reactive to light, extra-ocular motions intact. Lids and lashes normal. Conjunctiva and sclera are not injected. Cornea within normal limits. Periorbital areas with no swelling, redness, or edema. ENT: Nares patent. No nasal discharge, no septal abnormalities noted. Tympanic membranes are normal and external auditory canals are clear. Oropharynx with no redness, swelling, or masses, exudates, or evidence of obstruction, uvula midline. Mucous membranes moist. Neck: Trachea midline, no thyromegaly or masses palpated, and no cervical lymphadenopathy. Supple, full range of motion without nuchal rigidity, or vertebral point tenderness. Chest/axilla: Normal chest wall appearance and motion. Nontender with no deformity. No lesions are appreciated. Cardiovascular: Regular rate and rhythm with a normal S1 and S2. No gallops, murmurs, or rubs. Normal PMI, Positive JVD. No pulse deficits. Respiratory: Lungs have equal breath sounds bilaterally, bilateral diffuse crackles on auscultation, dyspnea, tachypnea, hypoxemia, accessory muscle use diffusely. Abdomen/GI: Soft, non-tender, with normal bowel sounds. No distension or tympany. No guarding or rebound. No evidence of tenderness throughout. Back: No spinal tenderness. No costovertebral tenderness. Skin: Warm, dry with normal turgor. Normal color with no rashes, no lesions, and no evidence of cellulitis. MS/ Extremity: Pulses equal, no cyanosis. Neurovascular intact. Full, normal range of motion. Neuro: Awake and alert, GCS 15, oriented to person, place, time, and situation. Cranial nerves II-XII grossly intact. Motor strength 5/5 in all extremities. Sensory grossly intact. 06:21 ECG was reviewed by the Attending Physician. EKG time 0 610, there is sinus tachycardia sp4 with PVCs, left axis deviation, left bundle branch block, EKG rate 113, Vital Signs: 06:00 BP 176 / 128; Pulse 102; Resp 26; Pulse Ox 75% on R/A; vc1 06:05 Pulse Ox 100% on BiPAP; FiO2 40 %; vc1 06:10 Weight 63.5 kg; Height 4 ft. 11 in. ; vc1 07:18 BP 128 / 67; Pulse 91; Resp 18; Pulse Ox 100% on BiPAP; FiO2 40 %; hb 07:28 BP 129 / 70; Pulse 87; Resp 18; Pulse Ox 99% on BiPAP; ap3 07:41 BP 112 / 59; Pulse 83; Pulse Ox 98% on BiPAP; ap3 08:30 BP 112 / 65; Pulse 84; Resp 18; Pulse Ox 97% on 40 lpm BiPAP; hb 09:30 BP 117 / 67; Pulse 84; Resp 18; Pulse Ox 98% on 40 lpm BiPAP; hb 10:27 BP 113 / 62; Pulse 89; Resp 17; Pulse Ox 96% on 40 lpm BiPAP; hb 06:10 Body Mass Index 28.27 (63.50 kg, 149.86 cm) vc1 MDM: 06:15 Patient medically screened. sp4 07:43 ED course: [facility] X [facility] - [facility] 6[facility]37 am sp4 CLINICAL HISTORY: CHEST PAIN COMPARISON: Chest Single View dated 12/16/2022; Chest Single View dated 11/18/2022; Chest Single View dated 11/17/2022; Chest Single View dated 11/01/2022 TECHNIQUE: Portable AP view of the chest. FINDINGS: Progressive central fluffy opacities. Interstitial prominence, partly chronic, worsened since the prior exam. No pneumothorax or effusion. The cardiomediastinal contours are unremarkable. IMPRESSION: Findings suggestive of early pulmonary edema. Superimposed pneumonia is considered less likely but not entirely excluded.. 07:45 Differential diagnosis: CHF exacerbation, Chronic Obstructive Pulmonary Disease sp4 Myocardial Infarction pneumonia, Pneumothorax Psychogenic pulmonary edema. Data reviewed: vital signs, old medical records, lab test result(s), EKG, radiologic studies, plain films. Consideration of Admission/Observation Patient was admitted/placed on observation. Escalation of care including admission/observation considered. Management of patient was discussed with the following: Hospitalist: Discussed with Admission team . 07:49 ED course: Evaluation consistent with acute diastolic heart failure associated with sp4 pulmonary edema mild elevation of troponin.. 01/04 06:14 Order name: BMP; Complete Time: 07:43 sp4 01/04 06:14 Order name: Blood Culture Adult (2) sp4 01/04 06:14 Order name: CBC with Diff; Complete Time: 07:07 sp4 01/04 06:14 Order name: CPK; Complete Time: 07:43 4 01/04 06:14 Order name: Hepatic Function; Complete Time: 07:43 4 01/04 06:14 Order name: Lipase; Complete Time: 07:43 4 01/04 06:14 Order name: Magnesium; Complete Time: 07:43 4 01/04 06:14 Order name: NT PRO-BNP; Complete Time: 07:43 4 01/04 06:14 Order name: PT-INR; Complete Time: 08:44 [facility] 01/04 06:14 Order name: Ptt, Activated; Complete Time: 08:44 4 01/04 06:14 Order name: Troponin HS; Complete Time: 07:43 [facility] 01/04 06:14 Order name: ABG; Complete Time: 07:54 [facility] 01/04 06:14 Order name: XRAY CXR (1 view); Complete Time: 07:43 [facility] 01/04 06:14 Order name: BIPAP [facility] 01/04 06:14 Order name: Call RT; Complete Time: 06:35 [facility] 01/04 06:14 Order name: EKG; Complete Time: 06:15 [facility] 01/04 06:14 Order name: Cardiac monitoring; Complete Time: 06:34 [facility] 01/04 06:14 Order name: EKG - Nurse/Tech; Complete Time: 06:34 [facility] 01/04 06:14 Order name: [place]; Complete Time: 06:34 [facility] 01/04 06:14 Order name: IV Saline Lock; Complete Time: 06:34 [facility] 01/04 06:14 Order name: Labs collected and sent; Complete Time: 06:34 [facility] 01/04 06:14 Order name: O2 Per Protocol; Complete Time: 06:34 [facility] 01/04 06:14 Order name: O2 Sat Monitoring; Complete Time: 06:34 [facility] 01/04 06:46 Order name: Labs - recollect needed: chemistry and coag; Complete Time: 07:19 [facility] 01/04 07:19 Order name: Labs - recollect needed: recollect blue top again; Complete Time: 07:49 bd EC:21 Rate is 113 beats/min. Rhythm is irregular, Sinus Rhythm with Occasional PVCs. Left sp4 axis deviation noted. WI interval is normal. QRS interval is prolonged. No ST changes noted. Clinical impression: No evidence of ischemia. Interpreted by me. Administered Medications: 07:20 Drug: Albuterol Inhalation 1.25 mg Inhalation once Route: Inhalation; jw7 07:20 Drug: Furosemide IVP 40 mg IVP once; give over 2 minutes Route: IVP; Site: right jw7 forearm; 11:48 Follow up: Response: No adverse reaction ap3 07:20 Drug: MethylPrednisoLONE IVP 125 mg IVP once Route: IVP; Site: right forearm; jw7 11:47 Follow up: Response: No adverse reaction ap3 07:20 Drug: Nitroglycerin Transdermal Ointment 2 % 1 inches Transdermal once Route: jw7 Transdermal; Site: anterior chest wall; 07:51 Follow up: Response: Other; patch removed by provider ap3 11:47 Not Given (pt on bipapp): aspirinchewable tablet 324 mg PO once; 81 mg tablets x 4 ap3 Disposition Summary: 01/04/23 07:45 Hospitalization Ordered Notes: Hospitalization Status: Inpatient Admission sp4 Provider: Dinh Lafleur spAdarsh Location: Telemetry/MedSurg (Inpatient) sp4 Condition: Serious sp4 Problem: new sp4 Symptoms: have improved sp4 Bed/Room Type: Standard sp4 Room Assignment: 220(01/04/23 11:05) bd Diagnosis - Acute pulmonary edema sp4 - Acute diastolic congestive heart failure, acute pulmonary edema, elevated troponin, sp4 acute hyperglycemia Forms: - Medication Reconciliation Form sp4 - SBAR form sp4 - Leadership Thank You Letter sp4 Signatures: Dispatcher [employer] EDMS yKm Jane bd Bryson Lafleur MD MD rn Attema, Lee, FNP-C PROPERTY PORTFOLIO OFFICER-Cla1 Gayatri Duncan RN RN vc1 Lily Mendez RN RN jw7 Kyle Low MD MD sp4 Lynda Weir Ree Cruz RN ap3 Corrections: (The following items were deleted from the chart) 11:05 07:45 sp4 bd
--- NOTE | 2023-01-04 07:45 | ER ---
Nurse's Notes [facility] Name: Erika Jacobson Age: 87 yrs Sex: Female : 1935 Arrival Date: 01/04/2023 Time: 06:09 Bed 4 Private MD: Diagnosis: Acute pulmonary edema;Acute diastolic congestive heart failure, acute pulmonary edema, elevated troponin, acute hyperglycemia Presentation: 01/04 06:10 Chief complaint: Patient's son or daughter states: My mother can't breath. It started vc1 about an hour ago and it keeps getting worse. 06:10 Coronavirus screen: Vaccine status: Patient reports receiving the 2nd dose of the covid vc1 vaccine. Moderna Client denies travel out of the [place] in the last 14 days. difficulty breathing, shortness of breath. Ebola Screen: Patient negative for fever greater than or equal to 101.5 degrees Fahrenheit, and additional compatible Ebola Virus Disease symptoms Patient denies exposure to infectious person. Patient denies travel to an Ebola-affected area in the 21 days before illness onset. No symptoms or risks identified at this time. Initial Sepsis Screen: Does the patient meet any 2 criteria? RR > 20 per min. HR > 90 bpm. Yes Does the patient have a suspected source of infection? No. Patient's initial sepsis screen is negative. Risk Assessment: Do you want to hurt yourself or someone else? Patient reports no desire to harm self or others. Onset of symptoms was January 04, 2023 at 05:00. 06:10 Method Of Arrival: Ambulatory vc1 06:10 Acuity: ISHAN 2 vc1 Triage Assessment: 06:00 General: Appears distressed, Behavior is anxious. Pain: Denies pain. EENT: No deficits vc1 noted. No signs and/or symptoms were reported regarding the EENT system. Neuro: Level of Consciousness is awake, obeys commands, Oriented to person, place, time, situation, Appropriate for age. Cardiovascular: Reports chest pain, diaphoresis, shortness of breath. Respiratory: Reports shortness of breath at rest labored breathing Airway is patent Respiratory effort is even, labored, Respiratory pattern is symmetrical, tachypnea Breath sounds are diminished bilaterally. Onset: The symptoms/episode began/occurred just prior to arrival, the patient has severe shortness of breath. GI: No deficits noted. No signs and/or symptoms were reported involving the gastrointestinal system. : No deficits noted. No signs and/or symptoms were reported regarding the genitourinary system. Derm: Skin is diaphoretic. Musculoskeletal: No deficits noted. No signs and/or symptoms reported regarding the musculoskeletal system. Historical: - Allergies: 06:48 No Known Allergies; vc1 - PMHx: 06:48 Asthma; Congestive heart failure; CVA; Hyperlipidemia; Hypertension; vc1 - PSHx: 06:48 choleycestectomy; hysterectomy; kidney stones; vc1 - Immunization history:: Client reports receiving the 2nd dose of the Covid vaccine, Flu vaccine is up to date. - Social history:: Smoking status: Patient denies any tobacco usage or history of. - Family history:: not pertinent. Screenin:10 [facility] ED Fall Risk Assessment (Adult) History of falling in the last 3 months, vc1 including since admission No falls in past 3 months (0 pts) Confusion or Disorientation Yes (5 pts) Intoxicated or Sedated No (0 pts) Impaired Gait Yes (1 pt) Mobility Assist Device Used No (0 pt) Altered Elimination No (0 pt) Score/Fall Risk Level 0 - 2 = Low Risk Oriented to surroundings, Maintained a safe environment, Educated pt \T\ family on fall prevention, incl call for assistance when getting out of bed. Abuse screen: Denies threats or abuse. Nutritional screening: No deficits noted. Tuberculosis screening: No symptoms or risk factors identified. Assessment: 06:10 Cardiovascular: Rhythm is sinus tachycardia. vc1 07:02 Respiratory: Patient placed on BiPAP: Inspiratory Pressure: 16 Expiratory (EPAP) vc1 Pressure: 8 FiO2%: 40 Respiratory Rate: 16. 07:40 Reassessment: provider at bedside and removed nitro patch due to patients blood ap3 pressure being 112/59. 08:30 Reassessment: BiPAP continues at 40%, pt resting with eyes closed in NAD, family hb remains at bedside. 10:00 Reassessment: No changes from previously documented assessment. Patient and/or family hb updated on plan of care and expected duration. Pain level reassessed. 11:49 Reassessment: attempted to call report. receiving nurse wanted to return my call. ap3 12:27 Reassessment: report given to receiving nurse. ap3 Vital Signs: 06:00 BP 176 / 128; Pulse 102; Resp 26; Pulse Ox 75% on R/A; vc1 06:05 Pulse Ox 100% on BiPAP; FiO2 40 %; vc1 06:10 Weight 63.5 kg; Height 4 ft. 11 in. ; vc1 07:18 BP 128 / 67; Pulse 91; Resp 18; Pulse Ox 100% on BiPAP; FiO2 40 %; hb 07:28 BP 129 / 70; Pulse 87; Resp 18; Pulse Ox 99% on BiPAP; ap3 07:41 BP 112 / 59; Pulse 83; Pulse Ox 98% on BiPAP; ap3 08:30 BP 112 / 65; Pulse 84; Resp 18; Pulse Ox 97% on 40 lpm BiPAP; hb 09:30 BP 117 / 67; Pulse 84; Resp 18; Pulse Ox 98% on 40 lpm BiPAP; hb 10:27 BP 113 / 62; Pulse 89; Resp 17; Pulse Ox 96% on 40 lpm BiPAP; hb 06:10 Body Mass Index 28.27 (63.50 kg, 149.86 cm) vc1 ED Course: 06:10 Patient arrived in ED. jj6 06:10 Inserted saline lock: 22 gauge in left hand, using aseptic technique. Blood collected. vc1 06:10 Arm band placed on right wrist. vc1 06:10 Patient has correct armband on for positive identification. Placed in gown. Bed in low vc1 position. Call light in reach. Client placed on continuous cardiac and pulse oximetry monitoring. NIBP monitoring applied. 06:13 Kyle Low MD is Attending Physician. sp4 06:33 Kilgore cath inserted, using sterile technique, 16 Fr., by nh, balloon inflated, to jw7 gravity drainage, urine specimen collected. returned cloudy urine. Patient tolerated well. 06:39 XRAY CXR (1 view) In Process Unspecified. EDMS 06:48 Triage completed. vc1 07:20 Inserted saline lock: 22 gauge in right forearm, using aseptic technique. Blood jw7 collected. 07:44 Dinh Lafleur MD is Hospitalizing Provider. sp4 07:49 BIPAP Sent. hb 08:19 Ree Armenta, VIVIENNE is Primary Nurse. ap3 Administered Medications: 07:20 Drug: Albuterol Inhalation 1.25 mg Inhalation once Route: Inhalation; jw7 07:20 Drug: Furosemide IVP 40 mg IVP once; give over 2 minutes Route: IVP; Site: right jw7 forearm; 11:48 Follow up: Response: No adverse reaction ap3 07:20 Drug: MethylPrednisoLONE IVP 125 mg IVP once Route: IVP; Site: right forearm; jw7 11:47 Follow up: Response: No adverse reaction ap3 07:20 Drug: Nitroglycerin Transdermal Ointment 2 % 1 inches Transdermal once Route: jw7 Transdermal; Site: anterior chest wall; 07:51 Follow up: Response: Other; patch removed by provider ap3 11:47 Not Given (pt on bipapp): aspirinchewable tablet 324 mg PO once; 81 mg tablets x 4 ap3 Medication: 06:52 VIS not applicable for this client. vc1 Outcome: 07:45 Decision to Hospitalize by Provider. sp4 13:40 Patient left the ED. bd Signatures: Dispatcher [employer] EDMS Kym Jane Heather, RN RN Ree Armenta RN RN ap3 Louise [email or web address] Gayatri Duncan RN RN vc1 Lily Mendez RN RN jw7 Kyle Low MD MD sp4
[2023-01-04 07:47] LABS: Arterial Blood Carboxyhemoglob 0.8 % (0-1.5); Blood Gas Oxyhemoglobin 87.6 % (94-97); Blood O2 Saturation 89.7 % (92-98.5)
--- NOTE | 2023-01-04 10:22 | P.HP ---
Certification for Inpatient Patient admitted to: Inpatient With expected LOS: >2 Midnights Patient will require the following post-hospital care: None Practitioner: I am a practitioner with admitting privileges, knowledge of patient current condition, hospital course, and medical plan of care. Services: Services provided to patient in accordance with Admission requirements found in Title 42 Section 412.3 of the Code of Federal Regulations Patient History Date of Service: 01/04/23 Reason for admission: CHF exacerbation History of Present Illness: 87-year-old female with history of chronic systolic congestive heart failure, hypertension, previous CVA, asthma, hyperlipidemia, DVT presents to the emergency department with chief complaint of shortness of breath/respiratory distress. Her son reports that this morning she awoke very short of breath, overloaded reports that she was fine yesterday. Has been compliant with her oral medications per son. Upon arrival to ED patient was placed on BiPAP, given nitroglycerin paste as well as IV Lasix. Her symptoms have improved markedly she is tolerating BiPAP well. Her labs were significant for white blood cell count 11.7 potassium 3.2 glucose 221 BNP 1013, high-sensitivity troponin 69.6 ABG performed pH 7.34 PCO2 42.4 PO2 75.7, HCO3 22.5 chest x-ray showed early pulmonary edema. Most recent echocardiogram 08/28/2022 with moderately depressed left ventricular ejection fraction 35 to 40%, diastolic dysfunction. Will admit for IV diuresis, respiratory support Allergies No Known Allergies Allergy (Verified 09/03/18 08:32) Home Medications: Aspirin Chewable [Aspirin Chewable*] 81 mg PO DAILY 02/15/22 Atorvastatin Calcium [Lipitor*] 20 mg PO BEDTIME 02/15/22 Losartan Potassium [Cozaar] 25 mg PO DAILY PRN 02/15/22 Ipratropium/Albuterol Sulfate [Iprat-Albut 0.5-3(2.5) mg/3 ml] 3 ml IH Q6H PRN #120 amp 05/09/22 Furosemide 40 mg PO BID 08/28/22 Iron 18 mg PO DAILY 08/28/22 Spironolactone 25 mg PO DAILY PRN 11/01/22 Carvedilol [Coreg] 1 tab PO BID 11/19/22 Metformin HCl 500 mg PO BID #60 tab 11/19/22 - Past Medical/Surgical History Diabetic: No -: Hypertension -: Dyslipidemia -: CVA -: kidney stones -: Asthma -: Systolic heart failure -: Prediabetes -: Cholecystectomy Psychosocial/ Personal History: Patient lives at home with her children. - Social History Smoking Status: Never smoker Alcohol use: No CD- Drugs: No Caffeine use: Yes Place of Residence: Home Review of Systems 10-point ROS is otherwise unremarkable Respiratory: Cough, Shortness of Breath, SOB with Excertion Cardiovascular: Edema Physical Examination - Vital Signs Pulse: 79 Pulse Ox (%): 98 - Physical Exam General: Alert, In no apparent distress, Oriented x3 HEENT: Atraumatic, PERRLA, Mucous membr. moist/pink Neck: Supple Respiratory: Diminished, Crackles/rales Cardiovascular: Regular rate/rhythm, Normal S1 S2, Edema (Trace nonpitting edema lower extremities) Gastrointestinal: Normal bowel sounds, No tenderness Musculoskeletal: No tenderness Integumentary: No rashes Neurological: Normal speech, Normal affect - Studies Laboratory Data (last 24 hrs) 01/04/23 01/04/23 01/04/23 07:48 07:05 06:16 WBC 11.70 H Hgb 14.6 Hct 45.0 Plt Count 341 PT 11.0 INR 1.00 APTT 33.9 Sodium 138 Potassium 3.2 L BUN 15 Creatinine 0.74 Glucose 221 H Magnesium 2.2 Total Bilirubin 0.5 AST 20 ALT 21 Alkaline Phosphatase 121 H Lipase 49 Assessment and Plan - Plan Assessment: Acute on chronic systolic congestive heart failure Acute hypoxic respiratory failure Hyperglycemia Hypertension Hyperlipidemia History of CVA Plan: Acute on chronic systolic congestive heart failure Acute hypoxic respiratory failure Continue IV diuresis, as needed BiPAP Last echocardiogram August of this year with EF of 35 to 40% Repeat echocardiogram ordered as well as cardiology consult Wean off of BiPAP, daily room air saturations Hyperglycemia Reported history of prediabetes, will obtain A1c, continue home medications Sliding scale insulin if blood sugars are persistently elevated Hypertension Hyperlipidemia History of CVA Continue home medications Disposition: Home in 48 to 72 hours DVT PPX: Lovenox Code status: Full Discharge Plan: Home Plan to discharge in: 72 Hours - Advance Directives Does patient have a Living Will: No Does patient have a Durable POA for Healthcare: No - Code Status/Comfort Care Code Status Assessed: Yes (Full code) Critical Care: No Time Spent Managing Pts Care (In Minutes): 55
[2023-01-04 15:41] VITALS: BMI 24.3
[2023-01-04] MEDS ORDERED: SPIRONOLACTONE 25 MG TABLET PO PRN (17:44)
[2023-01-04] MEDS ORDERED: ONDANSETRON 4 MG/2 ML VIAL IV PRN (17:44)
[2023-01-04] MEDS: FUROSEMIDE 40 MG/4 ML VIAL IV SCH (18:34)
[2023-01-04] MEDS: carvediloL 3.125 MG TAB PO SCH (21:12)
[2023-01-04] MEDS: ENOXAPARIN 40 MG/0.4 ML SQ SCH (21:14)
[2023-01-04] MEDS: ATORVASTATIN 20 MG TAB PO SCH (21:14)
[2023-01-04] MEDS: BENZONATATE 100 MG CAP PO PRN (21:34)
[2023-01-04] MEDS ORDERED: D50W 25 GM/50 ML SYRINGE IV PRN ×2 (22:55→22:56)
[2023-01-04] MEDS ORDERED: GLUCAGON 1 MG/VIAL IM PRN ×2 (22:55→22:56)
[2023-01-04] MEDS: INSULIN REGULAR (HUMAN) 100 UNIT/ML SQ SCH (23:02)
[2023-01-05 00:38] LABS: Renal Epithelial <5 /HPF (None Seen); Specific Gravity 1.018 (1.005-1.030); Urine Bacteria <20 /HPF (<20); Urine Bilirubin NEGATIVE (Negative); Urine Blood Trace (Negative); Urine Clarity Turbid (Clear); Urine Color Light-Yellow (Yellow); Urine Glucose 3+ (Negative); Urine Mucus Slight /HPF (None Seen); Urine Protein NEGATIVE (Negative); Urine RBC <5 /HPF (None Seen); Urine Urobilinogen Normal (Normal); Urine WBC Clump Rare /HPF (None Seen); Urine pH 5.5 (5.0-7.0)
[2023-01-05 02:38] LABS: Absolute Lymphocytes (CBC) 1.5 K/uL (0.7-4.9); Hematocrit 36.2 % (36.0-45.0); Lymphocytes % 12.6 % (15.3-44.8); MCV 82.1 fL (80-100); MPV 8.9 fL (7.6-11.3); Platelets 292 thou/uL (152-406)
[2023-01-05 03:04] LABS: Potassium 3.2 mEq/L (3.5-5.1)
[2023-01-05] MEDS: INSULIN REGULAR (HUMAN) 100 UNIT/ML SQ SCH ×4 (07:30→21:00)
[2023-01-05] MEDS: BENZONATATE 100 MG CAP PO PRN ×2 (09:21→20:22)
[2023-01-05] MEDS: ASPIRIN 81 MG CHEWABLE TABLET PO SCH (09:21)
[2023-01-05] MEDS: FUROSEMIDE 40 MG/4 ML VIAL IV SCH (09:21)
[2023-01-05] MEDS: carvediloL 3.125 MG TAB PO SCH ×2 (09:21→20:21)
[2023-01-05] MEDS: ENOXAPARIN 40 MG/0.4 ML SQ SCH (09:22)
--- NOTE | 2023-01-05 11:04 | P.PN ---
Date of Service: 01/05/23 Subjective: Breathing better today Off BiPAP tolerating nasal cannula well Reports productive cough that started overnight-dane sputum Denies fever/chills No other acute events overnight ROS: 10 point ROS as noted above, otherwise negative Physical exam GEN: Alert, oriented, NAD HEENT: Normal conjunctiva, sclera anicteric CV: Regular rate and rhythm, no edema Pulm: Nonlabored respirations on nasal cannula ABD: Soft, nontender, nondistended MSK: No joint tenderness Integumentary: No rashes Neuro: Normal speech, normal affect Vitals reviewed Assessment: Acute on chronic systolic congestive heart failure Acute hypoxic respiratory failure Hyperglycemia Hypertension Hyperlipidemia History of CVA Plan: Acute on chronic systolic congestive heart failure Acute hypoxic respiratory failure Continue IV diuresis, now off BiPAP tolerating nasal cannula Last echocardiogram August of this year with EF of 35 to 40% New echocardiogram pending Daily room air saturations Reports productive cough of white sputum overnight with blood cell count mildly increased to 12.2 D-dimer obtained slightly elevated We will obtain CT of the chest rule pulmonary embolism/help differentiate pulmonary edema versus pneumonia Hyperglycemia Reported history of prediabetes, will obtain A1c, continue home medications Sliding scale insulin if blood sugars are persistently elevated Hypertension Hyperlipidemia History of CVA Continue home medications Disposition: Home in 48 to 72 hours DVT PPX: Lovenox Code status: Entry Level Account Manager 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 <Terrence Kaur - Last Filed: 01/05/23 11:02> Patient seen and examined on rounds today. Plan of care reviewed and agree with LENS SILVERER Natasha as noted above with following addition/correction pt with acute hypoxemic respiratory failure secondary to acute on chronic systolic CHF CXR and CT consistent with CHF eacerbation improvign with diuresis spoke with daughter and patient at bedside reported patient has been taking lasix, not bumex improving will transition to bumex she was prescribed bumex tid day prior to admission will likely need 6mg daily dose, split across 2 doses - pt's sone reported she would take later dose due to frequency urinating / not sleeping <Dinh Lafleur - Last Filed: 01/05/23 21:41>
--- NOTE | 2023-01-05 13:13 | RAD REPORT ---
EXAM DESCRIPTION: CT - Chest For Pe Angio - 01/05/2023 12:54 pm CLINICAL HISTORY: sob COMPARISON: 10/2022 TECHNIQUE: Dynamically enhanced axial 3 mm thick images of the chest were obtained during administra tion of 100 mL Isovue 370 IV contrast. Coronal and oblique reconstruction images were generated and r eviewed. Exam utilizes a protocol for optimal evaluation of pulmonary arterial tree. Maximum intensity projections 3D imaging was utilized All CT scans are performed using dose optimization technique as appropriate and may include automated exposure control or mA/KV adjustment according to patient size. FINDINGS: A pulmonary embolus is not seen. A thoracic aortic aneurysm is not noted. A pleural effusion is not seen. A pericardial effusion is not seen. Mild bilateral pulmonary opacities . IMPRESSION: Negative for a pulmonary embolism. Mild bilateral pulmonary opacities probably mild interstitial pulmonary edema
[2023-01-05] MEDS ORDERED: BUMETANIDE 1 MG/4 ML VIAL IV SCH (18:00)
[2023-01-05] MEDS: ATORVASTATIN 20 MG TAB PO SCH (20:22)
[2023-01-05] MEDS ORDERED: HOME MED 1 EA UNK (Ipratropium/Albuterol Sulfate [Iprat-Albut 0.5-3(2.5) Mg/3 Ml] 3 ML Amp IH PRN (21:28)
[2023-01-05] MEDS: IPRATROPIUM BROM 0.5MG/2.5ML IH PRN (22:05)
[2023-01-05] MEDS: ALBUTEROL 2.5 MG/3 ML NEB SOL NEB PRN (22:05)
[2023-01-05] MEDS ORDERED: INSULIN REGULAR (HUMAN) 100 UNIT/ML SQ ONE (22:56)
[2023-01-06] MEDS: INSULIN REGULAR (HUMAN) 100 UNIT/ML SQ SCH ×4 (07:30→19:33)
[2023-01-06] MEDS: carvediloL 3.125 MG TAB PO SCH ×2 (08:50→19:28)
[2023-01-06] MEDS: ASPIRIN 81 MG CHEWABLE TABLET PO SCH ×2 (08:50→08:51)
[2023-01-06] MEDS: BUMETANIDE 1 MG TABLET PO SCH ×3 (08:50→16:19)
[2023-01-06] MEDS: ENOXAPARIN 40 MG/0.4 ML SQ SCH (08:51)
[2023-01-06 08:53] LABS: Potassium 2.9 mEq/L (3.5-5.1)
[2023-01-06 08:56] LABS: Absolute Lymphocytes (CBC) 2.2 K/uL (0.7-4.9); Hematocrit 34.1 % (36.0-45.0); Lymphocytes % 21.2 % (15.3-44.8); MCV 82.6 fL (80-100); Platelets 246 thou/uL (152-406); RBC Red Blood Cell Count 4.13 M/uL (3.86-4.86)
[2023-01-06] MEDS: BENZONATATE 100 MG CAP PO PRN ×2 (12:15→19:27)
[2023-01-06] MEDS: KCL 20 MEQ/100 mL IVPB 20 MEQ/100 ML BAG IV SCH ×2 (13:46→16:23)
[2023-01-06] MEDS ORDERED: NA CHLORIDE 0.9% 250 ML ONE ×2 (13:56→17:28)
--- NOTE | 2023-01-06 14:38 | P.PN ---
Date of Service: 01/06/23 Subjective: Breathing better today on room air Reports productive cough that started overnight-white sputum Denies fever/chills No other acute events overnight ROS: 10 point ROS as noted above, otherwise negative Physical exam GEN: Alert, oriented, NAD HEENT: Normal conjunctiva, sclera anicteric CV: Regular rate and rhythm, no edema Pulm: Nonlabored respirations on nasal cannula ABD: Soft, nontender, nondistended MSK: No joint tenderness Integumentary: No rashes Neuro: Normal speech, normal affect Vitals reviewed Assessment: Acute on chronic systolic congestive heart failure Acute hypoxic respiratory failure Hypokalemia Hyperglycemia Hypertension Hyperlipidemia History of CVA Plan: Acute on chronic systolic congestive heart failure Acute hypoxic respiratory failure switched to PO bumex 3mg bid Last echocardiogram August of this year with EF of 35 to 40% New echocardiogram pending tolerating room air CTA chest negative for PE/pneumonia Hypokalemia given potassium now, recheck tonigh, AM Hyperglycemia Reported history of prediabetes, will obtain A1c, continue home medications Sliding scale insulin if blood sugars are persistently elevated Hypertension Hyperlipidemia History of CVA Continue home medications Disposition: Home in 24 hours DVT PPX: Lovenox 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
[2023-01-06 19:00] LABS: Potassium 3.3 mEq/L (3.5-5.1)
[2023-01-06] MEDS: ATORVASTATIN 20 MG TAB PO SCH (19:27)
[2023-01-06] MEDS: ALBUTEROL 2.5 MG/3 ML NEB SOL NEB PRN (20:10)
[2023-01-06] MEDS: IPRATROPIUM BROM 0.5MG/2.5ML IH PRN (20:10)
[2023-01-07] MEDS: BENZONATATE 100 MG CAP PO PRN (05:33)
[2023-01-07] MEDS: INSULIN REGULAR (HUMAN) 100 UNIT/ML SQ SCH ×4 (07:30→21:56)
[2023-01-07 07:32] LABS: Hematocrit 39.7 % (36.0-45.0); MCV 82.6 fL (80-100); MPV 8.1 fL (7.6-11.3); Platelets 294 thou/uL (152-406); Potassium 3.1 mEq/L (3.5-5.1)
[2023-01-07] MEDS ORDERED: POTASSIUM CL SA 10 MEQ TAB PO ONE (08:00)
[2023-01-07] MEDS: carvediloL 3.125 MG TAB PO SCH ×2 (08:55→21:41)
[2023-01-07] MEDS: BUMETANIDE 1 MG TABLET PO SCH ×2 (08:56→16:46)
[2023-01-07] MEDS: ENOXAPARIN 40 MG/0.4 ML SQ SCH (08:57)
[2023-01-07] MEDS ORDERED: SPIRONOLACTONE 25 MG TABLET PO SCH (09:00)
[2023-01-07 13:43] LABS: MCV 82.5 fL (80-100); MPV 8.5 fL (7.6-11.3); Platelets 291 thou/uL (152-406); RBC Red Blood Cell Count 4.97 M/uL (3.86-4.86)
[2023-01-07 14:04] LABS: Albumin 3.3 g/dL (3.4-5.0); Bilirubin Total 0.7 mg/dL (0.2-1.0); Phosphorus 3.8 mg/dL (2.5-4.9); Potassium 3.3 mEq/L (3.5-5.1)
--- NOTE | 2023-01-07 14:45 | RAD REPORT ---
EXAM DESCRIPTION: RAD - Chest Single View - 01/07/2023 2:33 pm CLINICAL HISTORY: dyspnea, cough Chest pain. COMPARISON: Chest Single View dated 01/04/2023; Chest Single View dated 12/16/2022; Chest Single View dated 11/18/2022; Chest Single View dated 11/17/2022 FINDINGS: Portable technique limits examination quality. The lungs are mildly emphysematous but grossly clear. The heart is normal in size. No displaced fract ures. IMPRESSION: Mild COPD.
[2023-01-07] MEDS ORDERED: POTASSIUM 25 MEQ EFFERV TAB PO ONE (15:18)
--- NOTE | 2023-01-07 16:31 | P.PN ---
Date of Service: 01/07/23 Subjective: Breathing better today on room air Still with cough-productive white sputum Drowsy today, reports "hot", family reports episode of "sweating" possible diaphoresis ROS: 10 point ROS as noted above, otherwise negative Physical exam GEN: Alert, oriented, NAD HEENT: Normal conjunctiva, sclera anicteric CV: Regular rate and rhythm, no edema Pulm: Nonlabored respirations on nasal cannula ABD: Soft, nontender, nondistended MSK: No joint tenderness Integumentary: No rashes Neuro: Normal speech, normal affect Vitals reviewed Assessment: Acute on chronic systolic congestive heart failure Acute hypoxic respiratory failure Hypokalemia Diabetes mellitus type [id number] Hypertension Hyperlipidemia History of CVA Plan: Acute on chronic systolic congestive heart failure Acute hypoxic respiratory failure More drowsy today, potassium running low Able to walk with PT Unclear if family has been giving her Lasix or Bumex at home as she seems to have prescriptions for both Bumex was prescribed 2 mg with meals/3 times a day but family has been giving her a diuretic twice daily-again unclear if Lasix or Bumex Initially after IV Lasix we transition to Bumex 3 mg twice a day for 1 day but have now decreased to 2 mg twice a day Spironolactone was increased from 12.5mg daily at home to 25mg daily Repeat labs with mild hypokalemia but improving Last echocardiogram August of this year with EF of 35 to 40% Repeat echo similar EF, Severe diastolic dysfunction tolerating room air Son interested in oxygen at home, did not qualify Social service went over out of pocket options for home 02 CTA chest negative for PE/pneumonia Hypokalemia given potassium now, recheck in AM Diabetes mellitus type [id number] A1c 7.1 Continue SSI Diet controlled at home Recommend follow up with PCP Hypertension Hyperlipidemia History of CVA Continue home medications Disposition: possible discharge 24-48 hours DVT PPX: Lovenox 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
[2023-01-07] MEDS: ATORVASTATIN 20 MG TAB PO SCH (21:41)
[2023-01-08] MEDS: BENZONATATE 100 MG CAP PO PRN ×3 (00:52→17:42)
[2023-01-08] MEDS: INSULIN REGULAR (HUMAN) 100 UNIT/ML SQ SCH ×4 (07:30→21:00)
[2023-01-08 07:48] LABS: Hematocrit 43.4 % (36.0-45.0); MCV 83.4 fL (80-100); Platelets 317 thou/uL (152-406)
[2023-01-08 08:02] LABS: Magnesium 2.2 mg/dL (1.6-2.4); Potassium 3.4 mEq/L (3.5-5.1)
[2023-01-08] MEDS: carvediloL 3.125 MG TAB PO SCH ×2 (08:04→20:26)
[2023-01-08] MEDS: ENOXAPARIN 40 MG/0.4 ML SQ SCH (08:04)
[2023-01-08] MEDS: SPIRONOLACTONE 25 MG TABLET PO SCH (08:05)
[2023-01-08] MEDS: ASPIRIN 81 MG CHEWABLE TABLET PO SCH (08:06)
[2023-01-08] MEDS: BUMETANIDE 1 MG TABLET PO SCH ×2 (08:06→17:35)
[2023-01-08] MEDS ORDERED: POTASSIUM 25 MEQ EFFERV TAB PO ONE (08:29)
[2023-01-08] MEDS: DULERA 100/5 (MOMETASONE/FORMOTEROL) INHALER IH SCH ×2 (08:50→20:25)
[2023-01-08] MEDS: VALSARTAN 80 MG TAB PO SCH (09:00)
[2023-01-08] MEDS: ALBUTEROL 2.5 MG/3 ML NEB SOL NEB PRN ×2 (09:38→20:34)
[2023-01-08] MEDS: IPRATROPIUM BROM 0.5MG/2.5ML IH PRN ×2 (09:38→20:34)
--- NOTE | 2023-01-08 11:34 | P.CNS ---
Date of Consult: 01/08/23 Reason for Consult: CHF Chief Complaint: CHF exacerbation History of Present Illness: This is an 87-year-old female with past medical history of hypertension, hyperlipidemia previous CVA who is here with worsening shortness of breath. Initially patient was placed on the BiPAP given IV Lasix then transition to p.o. Bumex. Patient has improved. She desats when she ambulates to the 87. No chest pain or shortness of breath at rest Allergies No Known Allergies Allergy (Verified 09/03/18 08:32) Home Medications: Aspirin Chewable [Aspirin Chewable*] 81 mg PO DAILY 02/15/22 Atorvastatin Calcium [Lipitor*] 20 mg PO BEDTIME 02/15/22 Carvedilol [Coreg] 1 tab PO BID 11/19/22 Bumetanide 1 tab PO DAILY 01/06/23 Ipratropium/Albuterol Sulfate [Iprat-Albut 0.5-3(2.5) mg/3 ml] 3 ml IH BEDTIME 01/06/23 Spironolactone 12.5 mg PO DAILY 01/06/23 Fluticasone Propion/Salmeterol [Fluticasone-Salmeterol 250-50] 01/08/23 - Past Medical/Surgical History Diabetic: No -: Hypertension -: Dyslipidemia -: CVA -: kidney stones -: Asthma -: Systolic heart failure -: Prediabetes -: Cholecystectomy Psychosocial/ Personal History: Patient lives at home with her children. - Social History Smoking Status: Unknown if ever smoked Alcohol use: No CD- Drugs: No Caffeine use: Yes Place of Residence: Home Review of Systems 10-point ROS is otherwise unremarkable Physical Examination Temp Pulse Resp BP Pulse Ox 98.2 F 91 H 16 145/67 H 91 01/08/23 08:00 01/08/23 08:06 01/08/23 08:00 01/08/23 08:06 01/08/23 08:00 General: Oriented x3 HEENT: Atraumatic Neck: Supple Respiratory: Clear to auscultation bilaterally Cardiovascular: No edema Neurological: Normal speech Conclusions/Impression: 1. CHF: acute on chronic, systolic and diastolic. Agree with Bumex current dose, Aldactone carvedilol and will add valsartan
--- NOTE | 2023-01-08 13:11 | P.PN ---
Date of Service: 01/08/23 Subjective: More tired today, son reports trouble sleeping 2/2 cough desatted while walking to bathroom 87% Still with cough-productive white sputum ROS: 10 point ROS as noted above, otherwise negative Physical exam GEN: Alert, oriented, NAD HEENT: Normal conjunctiva, sclera anicteric CV: Regular rate and rhythm, no edema Pulm: Nonlabored respirations on nasal cannula ABD: Soft, nontender, nondistended MSK: No joint tenderness Integumentary: No rashes Neuro: Normal speech, normal affect Vitals reviewed Assessment: Acute on chronic systolic congestive heart failure Acute hypoxic respiratory failure COPD with mild exacerbation Leukocytosis Hypokalemia Diabetes mellitus type [id number] Hypertension Hyperlipidemia History of CVA Plan: Acute on chronic systolic congestive heart failure Acute hypoxic respiratory failure Desatted while walking to bathroom today Continues with cough RA sats for home today-social service consult if qualifies Cardiology saw today-added valsartan 80mg daily, agrees with plan-seems euvolemic Unclear if family has been giving her Lasix or Bumex at home as she seems to have prescriptions for both Bumex was prescribed 2 mg with meals/3 times a day but family has been giving her a diuretic twice daily-again unclear if Lasix or Bumex Initially after IV Lasix we transition to Bumex 3 mg twice a day for 1 day but have now decreased to 2 mg twice a day Continue spironolactone 12.5mg daily as she was taking at home Last echocardiogram August of this year with EF of 35 to 40% Repeat echo similar EF, Severe diastolic dysfunction CTA chest negative for PE/pneumonia COPD with mild exacerbation Restarted ICS-Dulera PRN nebs, anti-tussives Leukocytosis no clear source of infection Denies dysuria, fever, chills CT/xray with no pneumonia Reports intermittent abd pain Trend WBC, monitor for fevers, other symptoms Hypokalemia replaced, protocol in place Diabetes mellitus type [id number] A1c 7.1 Continue SSI Diet controlled at home Recommend follow up with PCP Hypertension Hyperlipidemia History of CVA Continue home medications Disposition: possible discharge 24-48 hours DVT PPX: Lovenox 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 Plan of care discussed with PAWAN Kaur. Agree with plan as noted above with the following additions/corrections: This morning, patient reports she is feeling better, she is feeling "fine", ready to go home Yesterday she reportedly felt warm and was tired, noted to be approximately 1 hour after walking 250 feet with physical therapy yesterday Kilgore removed yesterday, patient voiding without issues, denies any dysuria, no increased frequency Reports continues with cough but improving Some mild vague upper abdominal pains yesterday Afebrile, mild leukocytosis this morning She noted to have some wheezing, and hypoxic with ambulation today Patient has COPD, has been off of her inhalers Dulera ordered, continue nebs as needed Repeat room air sats for home oxygen If everything continues to improve anticipate DC home tomorrow with home health, and home O2 CXR yesterday with improvement pulmonary edema, noted emphysematous changes Diuretics adjusted <Dinh Lafleur - Last Filed: 01/08/23 15:29>
[2023-01-08] MEDS: ATORVASTATIN 20 MG TAB PO SCH (20:26)
--- NOTE | 2023-01-09 07:01 | ECHO ---
HEIGHT: 5 ft 3 in WEIGHT: 137 lb 0 oz DATE OF STUDY: 01/04/[address]: Terrence Kaur NP 2-DIMENSIONAL: YES M.MODE: YES DOPPLER: YES COLOR FLOW: YES TDS: NO PORTABLE: YES DEFINITY: NO BUBBLE STUDY: NO DIAGNOSIS: A/C DECOMPENSATED SYSTOLIC CONGESTIVE HEART FAILURE CARDIAC HISTORY: CATHERIZATION: SURGERY: PROSTHETIC VALVE: PACEMAKER: MEASUREMENTS (cm) DIASTOLIC (NORMALS) SYSTOLIC (NORMALS) IVSd 1.0 (0.6-1.2) LA Diam 3.5 (1.9-4.0) LVEF 30-35% LVIDd 3.9 (3.5-5.7) LVIDs 3.4 (2.0-3.5) %FS 13% LVPWd 1.0 (0.6-1.2) Ao Diam 2.8 (2.0-3.7) 2 DIMENSIONAL ASSESSMENT: RIGHT ATRIUM: NORMAL LEFT ATRIUM: NORMAL RIGHT VENTRICLE: NORMAL LEFT VENTRICLE: DEPRESSED EJECTION FRACTION TRICUSPID VALVE: NORMAL MITRAL VALVE: MILD MITRAL REGURGITATION PULMONIC VALVE: NORMAL AORTIC VALVE: MILD AORTIC REGURGITATION PERICARDIAL EFFUSION: NONE AORTIC ROOT: NORMAL LEFT VENTRICULAR WALL MOTION: ANTERIOR/APICAL HYPOKINESIS. DOPPLER/COLOR FLOW: SEE BELOW. COMMENTS: 1. MODERATELY DEPRESSED LEFT VENTRICULAR EJECTION FRACTION 30-35%. 2. ANTERIOR/APICAL HYPOKINESIS. 3. MILD MITRAL REGURGITATION. 4. MILD AORTIC REGURGITATION. 5. SEVERE DIASTOLIC DYSFUNCTION. TECHNOLOGIST: Edwardo MORALES
[2023-01-09] MEDS: INSULIN REGULAR (HUMAN) 100 UNIT/ML SQ SCH ×2 (08:11→11:30)
[2023-01-09] MEDS: SPIRONOLACTONE 25 MG TABLET PO SCH (08:11)
[2023-01-09] MEDS: ASPIRIN 81 MG CHEWABLE TABLET PO SCH (08:12)
[2023-01-09] MEDS: VALSARTAN 80 MG TAB PO SCH (08:13)
[2023-01-09] MEDS: carvediloL 3.125 MG TAB PO SCH (08:14)
[2023-01-09] MEDS: BUMETANIDE 1 MG TABLET PO SCH (08:14)
[2023-01-09] MEDS: ENOXAPARIN 40 MG/0.4 ML SQ SCH (08:26)
[2023-01-09] MEDS: DULERA 100/5 (MOMETASONE/FORMOTEROL) INHALER IH SCH (08:29)
[2023-01-09 08:46] LABS: Hematocrit 41.7 % (36.0-45.0); MCV 82.6 fL (80-100); MPV 7.9 fL (7.6-11.3); Platelets 340 thou/uL (152-406); RBC Red Blood Cell Count 5.05 M/uL (3.86-4.86)
[2023-01-09 09:05] LABS: Potassium 3.6 mEq/L (3.5-5.1)
[2023-01-09] MEDS ORDERED: POTASSIUM CL SA 10 MEQ TAB PO ONE (10:21)
[2023-01-09] MEDS: BENZONATATE 100 MG CAP PO PRN (10:44)
--- NOTE | 2023-01-09 12:06 | P.PN ---
Date of Service: 01/09/23 Subjective: Feels breathing is easier today, on 2L NC currently approved for home oxygen - dc Pending home oxygen delivery / HH setup no new /worsening problems afebrile ROS: 10 point ROS as noted above, otherwise negative Physical exam GEN: Alert, oriented, NAD HEENT: Normal conjunctiva, sclera anicteric CV: Regular rate and rhythm, no edema Pulm: Nonlabored respirations on 2L NC ABD: Soft, nontender, nondistended MSK: No joint tenderness Integumentary: No rashes Neuro: Normal speech, normal affect Vitals reviewed Problem List: Acute on chronic systolic congestive heart failure Acute hypoxic respiratory failure COPD with mild exacerbation Leukocytosis Hypokalemia Diabetes mellitus type [id number] Hypertension Hyperlipidemia History of CVA Acute on chronic systolic congestive heart failure Acute hypoxic respiratory failure Acute COPD exacerbation Desatted while walking to bathroom yesterday Reports continues with cough but improving Approved for home oxygen setup; to be delivered at home prior to discharge Cardiology consulted added valsartan 80mg daily, agrees with plan-seems euvolemic Unclear if family has been giving her Lasix or Bumex at home as she seems to have prescriptions for both Bumex was prescribed 2 mg with meals/3 times a day but family has been giving her a diuretic twice daily-again unclear if Lasix or Bumex Initially after IV Lasix we transition to Bumex 3 mg twice a day for 1 day but have now decreased to 2 mg twice a day Continue spironolactone 12.5mg daily as she was taking at home Last echocardiogram August of this year with EF of 35 to 40% Echo (01/04): 30-35% EF, severe diastolic dysfunction, anterior/apical hypokinesis, mild MR/AR. CTA chest negative for PE/pneumonia Restarted ICS-Dulera PRN nebs, anti-tussives Leukocytosis no clear source of infection Denies dysuria, fever, chills CT/xray with no pneumonia Reports intermittent abd pain Trend WBC, monitor for fevers, other symptoms Hypokalemia replaced, protocol in place Diabetes mellitus type [id number] A1c 7.1 Continue SSI Diet controlled at home Recommend follow up with PCP Hypertension Hyperlipidemia History of CVA Continue home medications DVT PPX: Lovenox Code status: Full Dispo: anticipate DC - pending HH / home oxygen delivered
[2023-01-09] MEDS ORDERED: NA CHLORIDE 0.9% 250 ML IV ONE (13:53)
[2023-01-09] MEDS ORDERED: ALBUTEROL 2.5 MG/3 ML NEB SOL NEB PRN (15:00)
[2023-01-09] MEDS ORDERED: IPRATROPIUM BROM 0.5MG/2.5ML NEB PRN (15:00)
[2023-01-09 16:36] VITALS: O2SAT 99
[2023-01-09 16:45] VITALS: BP 103/52; TEMP 98.6
== END 2023-01-09 16:30 | disposition home or self-care (01) | DRG 291 ==
LOC: ER 06:09 → ERHOLD 09:25 → 2ND 12:27
PROVIDERS: ADMIT Hospitalist; ATTEND Hospitalist
PROC: 5A09557 Assistance with Respiratory Ventilation, Greater than 96 Consecutive Hours, Continuous Positive Airway Pressure (ICD-10-PCS; principal; 2023-01-04)
DX: I11.0 Hypertensive heart disease with heart failure (principal); I50.23 Acute on chronic systolic (congestive) heart failure; J96.01 Acute respiratory failure with hypoxia; J44.1 Chronic obstructive pulmonary disease with (acute) exacerbation; E78.5 Hyperlipidemia, unspecified; E11.65 Type 2 diabetes mellitus with hyperglycemia; E87.6 Hypokalemia; D72.829 Elevated white blood cell count, unspecified; J45.909 Unspecified asthma, uncomplicated; R77.8 Other specified abnormalities of plasma proteins; Z79.82 Long term (current) use of aspirin; Z79.02 Long term (current) use of antithrombotics/antiplatelets; Z79.84 Long term (current) use of oral hypoglycemic drugs; Z86.73 Personal history of transient ischemic attack (TIA), and cerebral infarction without residual deficits; Z90.49 Acquired absence of other specified parts of digestive tract; Z90.710 Acquired absence of both cervix and uterus; Z79.899 Other long term (current) drug therapy; Z86.718 Personal history of other venous thrombosis and embolism
CPT/HCPCS: 36415; 36600; 51702; 71045; 71275; 80048; 80053; 80061; 80076; 81001; 82550; 82805; 82947; 83036; 83690; 83735; 83880; 84100; 84132; 84145; 84484; 85025; 85027; 85379; 85610; 85730; 87040; 93306; 94640; 94660; 96374; 96375; 97116; 97161; 97530; 99285; J1650; J1815; J1940; J2930; J3480; J3535; J7050; J7613; J7644; Q9967

== ENCOUNTER 2023-02-23 15:21 | Inpatient (IN) | payer OTHER ==
[2023-02-23 17:29] LABS: Hematocrit 40.8 % (36.0-45.0); Lymphocytes % 31.7 % (15.3-44.8); MCV 82.2 fL (80-100); MPV 7.8 fL (7.6-11.3); Platelets 391 thou/uL (152-406); RBC Red Blood Cell Count 4.96 M/uL (3.86-4.86)
[2023-02-23 17:37] LABS: Protime INR 1.15
[2023-02-23 17:41] LABS: SARS-CoV-2 Antigen Rapid Res Negative (Negative)
[2023-02-23 17:48] LABS: Albumin 3.5 g/dL (3.4-5.0); Bilirubin Direct 0.2 mg/dL (0-0.2); Bilirubin Indirect, Calculated 0.3 mg/dL (0.2-0.8); Bilirubin Total 0.5 mg/dL (0.2-1.0); Magnesium 1.8 mg/dL (1.6-2.4); Potassium 3.1 mEq/L (3.5-5.1); Protein, Total 7.4 g/dL (6.4-8.2)
[2023-02-23 17:52] LABS: Troponin High Sensitivity 74.5 pg/mL (<58.9)
--- NOTE | 2023-02-23 18:02 | RAD REPORT ---
EXAM DESCRIPTION: [facility]2023 4:58 pm CLINICAL HISTORY: Cough;Dyspnea COMPARISON: Chest Single View dated 01/07/2023; Chest Single View dated 01/04/2023; Chest Single Vie w dated 12/16/2022; Chest Single View dated 11/18/2022 TECHNIQUE: Portable AP view of the chest. FINDINGS: The lungs are clear. Hyperlucency and hyperinflation suggestive of COPD. No pneumothorax or effusion. The cardiomediastinal contours are unremarkable. IMPRESSION: No acute cardiopulmonary process.
[2023-02-23] MEDS ORDERED: FUROSEMIDE 40 MG/4 ML VIAL ONE (18:07)
--- NOTE | 2023-02-23 19:18 | EDPHYS ---
Physician Documentation [facility] Name: Erika Jacobson Age: 87 yrs Sex: Female : 1935 Arrival Date: 02/23/2023 Time: 15:21 Bed 7 Private MD: ED Physician Timo Madera HPI: 02/23 16:54 This 87 yrs old Female presents to ER via Ambulatory with complaints of sp3 Shortness Of Breath. 16:54 87-year-old female with a history of CHF, hyperlipidemia, hypertension, asthma, prior sp3 CVA presents to the ED again for shortness of breath and "fluid retention" as per her son. Symptoms started 1 to 2 days ago and have progressively getting worse. Son states that he knows his mom's typical progression and he came in before it got "really bad". Patient denies any other symptoms besides the dyspnea and peripheral edema including chest pain, headache, fever, cough, abdominal pain, nausea, vomiting, diarrhea, syncope, near syncope, focal neurological deficit, rash, known sick contacts, travel history, change in diet, or any other signs or symptoms on ROS at this time.. Historical: - Allergies: 15:38 No Known Allergies; ph - PMHx: 15:38 Asthma; Congestive heart failure; CVA; Hyperlipidemia; Hypertension; ph - PSHx: 15:38 choleycestectomy; hysterectomy; kidney stones; ph - Immunization history:: Client reports receiving the 2nd dose of the Covid vaccine. - Social history:: Smoking status: Patient denies any tobacco usage or history of. ROS: 16:55 Constitutional: Negative for fever, chills, and weight loss, Eyes: Negative for injury, sp3 pain, redness, and discharge, ENT: Negative for injury, pain, and discharge, Neck: Negative for injury, pain, and swelling, Abdomen/GI: Negative for abdominal pain, nausea, vomiting, diarrhea, and constipation, Back: Negative for injury and pain, Skin: Negative for injury, rash, and discoloration, Neuro: Negative for headache, weakness, numbness, tingling, and seizure, Psych: Negative for depression, anxiety, suicide ideation, homicidal ideation, and hallucinations, Allergy/Immunology: Negative for hives, rash, and allergies, Endocrine: Negative for neck swelling, polydipsia, polyuria, polyphagia, and marked weight changes, Hematologic/Lymphatic: Negative for swollen nodes, abnormal bleeding, and unusual bruising, 16:55 All other systems are negative, Exam: 16:55 Constitutional: This is a well developed, well nourished patient who is awake, alert, sp3 and in no acute distress. Head/Face: Normocephalic, atraumatic. Eyes: Pupils equal round and reactive to light, extra-ocular motions intact. Lids and lashes normal. Conjunctiva and sclera are non-icteric and not injected. Cornea within normal limits. Periorbital areas with no swelling, redness, or edema. Neck: Trachea midline, no thyromegaly or masses palpated, and no cervical lymphadenopathy. Supple, full range of motion without nuchal rigidity, or vertebral point tenderness. No Meningismus. Chest/axilla: Normal chest wall appearance and motion. Nontender with no deformity. No lesions are appreciated. Cardiovascular: Regular rate and rhythm with a normal S1 and S2. No gallops, murmurs, or rubs. Normal PMI, no JVD. No pulse deficits. Abdomen/GI: Soft, non-tender, with normal bowel sounds. No distension or tympany. No guarding or rebound. No evidence of tenderness throughout. Back: No spinal tenderness. No costovertebral tenderness. Full range of motion. Skin: Warm, dry with normal turgor. Normal color with no rashes, no lesions, and no evidence of cellulitis. Neuro: Awake and alert, GCS 15, oriented to person, place, time, and situation. Cranial nerves II-XII grossly intact. Motor strength 5/5 in all extremities. Sensory grossly intact. Cerebellar exam normal. Normal gait. Psych: Awake, alert, with orientation to person, place and time. Behavior, mood, and affect are within normal limits. 16:55 Respiratory: Bilateral rales noted with pedal edema 2+ pitting bilaterally, 17:26 ECG was reviewed by the Attending Physician. EKG demonstrates sinus tachycardia at 100 sp3 bpm with left bundle branch block Vital Signs: 15:36 BP 123 / 77; Pulse 100; Resp 18; Temp 98.6(O); Pulse Ox 95% ; Weight 63.5 kg; Height 5 ph ft. 1 in. ; 17:30 BP 131 / 76; Pulse 104; Resp 18; Pulse Ox 95% on R/A; ld1 19:15 BP 112 / 59; Pulse 89; Resp 18; Pulse Ox 95% ; vc1 20:00 BP 120 / 56; Pulse 90; Resp 20; Pulse Ox 92% on R/A; vc1 21:01 BP 127 / 80; Pulse 85; Resp 20; Pulse Ox 98% ; vc1 15:36 Body Mass Index 26.43 (63.50 kg, 155 cm) ph MDM: 15:33 Patient medically screened. sp3 16:55 Data reviewed: vital signs, nurses notes, old medical records, lab test result(s), EKG, sp3 radiologic studies. ED course: 87-year-old female with dyspnea. Differential diagnosis includes congestive heart failure/ACS spectrum, asthma, pneumonia, among others. I am not highly suspicious for aortic pathology including dissection and/or aneurysm, sepsis, shock, or any other critical process at this time. Workup will include EKG, chest x-ray and laboratory values with probable diuretic and admission as indicated.. 02/23 15:42 Order name: Basic Metabolic Panel; Complete Time: 17:55 sp3 02/23 15:42 Order name: CBC with Diff; Complete Time: 17:55 sp3 02/23 15:42 Order name: LFT's; Complete Time: 17:55 3 02/23 15:42 Order name: Magnesium; Complete Time: 17:55 sp3 02/23 15:42 Order name: NT PRO-BNP; Complete Time: 17:55 3 02/23 15:42 Order name: PT-INR; Complete Time: 17:55 3 02/23 15:42 Order name: Troponin HS; Complete Time: 17:55 3 02/23 15:42 Order name: Flu; Complete Time: 17:55 3 02/23 15:42 Order name: SARS RAPID; Complete Time: 17:55 3 02/23 21:03 Order name: Urinalysis w/ reflexes EDMS 02/23 21:03 Order name: Basic Metabolic Panel EDMS 02/23 21:03 Order name: Basic Metabolic Panel EDVA 02/23 21:03 Order name: CBC with Automated Diff EDMS 02/23 21:03 Order name: CBC with Automated Diff EDMS 02/23 15:42 Order name: XRAY Chest (1 view); Complete Time: 18:03 sp3 02/23 15:42 Order name: EKG; Complete Time: 15:42 sp3 02/23 21:03 Order name: CONS Physician Consult [facility] 02/23 15:42 Order name: Cardiac monitoring; Complete Time: 17:18 sp3 02/23 15:42 Order name: EKG - Nurse/Tech; Complete Time: 17:18 sp3 02/23 15:42 Order name: IV Saline Lock; Complete Time: 17:23 sp3 02/23 15:42 Order name: Labs collected and sent; Complete Time: 17:23 sp3 02/23 15:42 Order name: O2 Per Protocol; Complete Time: 16:50 sp3 02/23 15:42 Order name: O2 Sat Monitoring; Complete Time: 16:50 sp3 Administered Medications: 18:22 Drug: Furosemide IVP 40 mg IVP once; give over 2 minutes Route: IVP; Site: right hand; ld1 21:02 Follow up: Response: No adverse reaction; Marked relief of symptoms vc1 Disposition Summary: 02/23/23 19:16 Hospitalization Ordered Notes: Hospitalization Status: Inpatient Admission sp3 Provider: Meka Erazo sp3 Location: Telemetry/MedSurg (Inpatient) sp3 Condition: Stable sp3 Problem: an acute exacerbation sp3 Symptoms: have worsened sp3 Bed/Room Type: Standard sp3 Room Assignment: 431(02/23/23 21:00) jb4 Diagnosis - Congestive heart failure, demand ischemia, shortness of breath sp3 Forms: - Medication Reconciliation Form sp3 - SBAR form sp3 - Leadership Thank You Letter sp3 Signatures: Dispatcher [employer] [facility] Akua Daniel RN RN Zach Guevara RN RN jb4 Yesenia Peres RN RN ld1 Timo Madera MD MD sp3 Gayatri Duncan RN vc1 Corrections: (The following items were deleted from the chart) 21:00 19:16 sp3 jb4
--- NOTE | 2023-02-23 19:18 | ER ---
Nurse's Notes [facility] Name: Erika Jacobson Age: 87 yrs Sex: Female : 1935 Arrival Date: 02/23/2023 Time: 15:21 Bed 7 Private MD: Diagnosis: Congestive heart failure, demand ischemia, shortness of breath Presentation: 02/23 15:36 Chief complaint: Patient's son or daughter states: Shortness of breath for 3 weeks, got ph worse about 2-3 days ago. Concerned about fluid retention and cough. Coronavirus screen: Vaccine status: Patient reports receiving the 2nd dose of the covid vaccine. Ebola Screen: Patient denies travel to an Ebola-affected area in the 21 days before illness onset. Initial Sepsis Screen: Does the patient meet any 2 criteria? No. Patient's initial sepsis screen is negative. Does the patient have a suspected source of infection? No. Patient's initial sepsis screen is negative. Risk Assessment: Do you want to hurt yourself or someone else? Patient reports no desire to harm self or others. Onset of symptoms was January 2023. 15:36 Method Of Arrival: Ambulatory ph 15:36 Acuity: ISHAN 3 ph Triage Assessment: 21:02 General: Appears in no apparent distress. comfortable. General: Behavior is vc1 cooperative, appropriate for age. Respiratory: the patient has mild shortness of breath. Respiratory:. Respiratory: Onset: The symptoms/episode began/occurred at an unknown time. Historical: - Allergies: 15:38 No Known Allergies; ph - PMHx: 15:38 Asthma; Congestive heart failure; CVA; Hyperlipidemia; Hypertension; ph - PSHx: 15:38 choleycestectomy; hysterectomy; kidney stones; ph - Immunization history:: Client reports receiving the 2nd dose of the Covid vaccine. - Social history:: Smoking status: Patient denies any tobacco usage or history of. Screenin:30 [facility] ED Fall Risk Assessment (Adult) History of falling in the last 3 months, ld1 including since admission No falls in past 3 months (0 pts). Abuse screen: Denies threats or abuse. Denies injuries from another. Nutritional screening: No deficits noted. Tuberculosis screening: No symptoms or risk factors identified. Assessment: 17:30 General: Appears in no apparent distress. comfortable, Behavior is calm, cooperative, ld1 appropriate for age. 17:30 Pain: Denies pain. Neuro: Level of Consciousness is awake, alert, obeys commands, ld1 Oriented to person, place, time, situation. Cardiovascular: Capillary refill < 3 seconds Patient's skin is warm and dry. Rhythm is sinus rhythm. Respiratory: Reports shortness of breath at rest on exertion Airway is patent Respiratory effort is even, unlabored, Breath sounds are clear bilaterally. GI: Abdomen is round non-distended. : No signs and/or symptoms were reported regarding the genitourinary system. EENT: No signs and/or symptoms were reported regarding the EENT system. Derm: No signs and/or symptoms reported regarding the dermatologic system. Musculoskeletal: No signs and/or symptoms reported regarding the musculoskeletal system. 19:15 Reassessment: No changes from previously documented assessment. Patient and/or family vc1 updated on plan of care and expected duration. Pain level reassessed. Patient is alert, oriented x 3, equal unlabored respirations, skin warm/dry/pink. 21:00 Reassessment: No changes from previously documented assessment. Patient and/or family vc1 updated on plan of care and expected duration. Pain level reassessed. Patient is alert, oriented x 3, equal unlabored respirations, skin warm/dry/pink. Vital Signs: 15:36 BP 123 / 77; Pulse 100; Resp 18; Temp 98.6(O); Pulse Ox 95% ; Weight 63.5 kg; Height 5 ph ft. 1 in. ; 17:30 BP 131 / 76; Pulse 104; Resp 18; Pulse Ox 95% on R/A; ld1 19:15 BP 112 / 59; Pulse 89; Resp 18; Pulse Ox 95% ; vc1 20:00 BP 120 / 56; Pulse 90; Resp 20; Pulse Ox 92% on R/A; vc1 21:01 BP 127 / 80; Pulse 85; Resp 20; Pulse Ox 98% ; vc1 15:36 Body Mass Index 26.43 (63.50 kg, 155 cm) ph ED Course: 15:22 Patient arrived in ED. im 15:26 Timo Madera MD is Attending Physician. sp3 15:38 Triage completed. ph 15:39 Arm band placed on right wrist. ph 17:00 XRAY Chest (1 view) In Process Unspecified. EDMS 17:03 Peres, Yesenia, RN is Primary Nurse. ld1 17:23 SARS RAPID Sent. ko1 17:23 Flu Sent. ko1 17:23 Inserted saline lock: 22 gauge in right hand, using aseptic technique. Blood collected. ko1 17:30 Patient has correct armband on for positive identification. Placed in gown. Bed in low ld1 position. Call light in reach. Side rails up X2. lunchroom monitor on. Pulse ox on. NIBP on. Door closed. Noise minimized. Warm blanket given. 17:30 No provider procedures requiring assistance completed. Purewick placed to patient per ld1 request from patient. 19:16 Meka Erazo MD is Hospitalizing Provider. sp3 22:01 Provided Education on: need for admit. as6 22:01 Patient admitted, IV remains in place. as6 Administered Medications: 18:22 Drug: Furosemide IVP 40 mg IVP once; give over 2 minutes Route: IVP; Site: right hand; ld1 21:02 Follow up: Response: No adverse reaction; Marked relief of symptoms vc1 Medication: 17:30 VIS not applicable for this client. ld1 Outcome: 19:16 Decision to Hospitalize by Provider. sp3 22:01 Admitted to Tele accompanied by tech, family with patient, as6 22:01 Condition: stable 22:01 Instructed on the need for admit, 22:01 Patient left the ED. as6 Signatures: Dispatcher [employer] [facility] Akua Daniel RN RN Yesenia Peres, VIVIENNE PALAFOX ld1 Timo Madera MD MD sp3 Stevo Jean RN RN as6 Gayatri Duncan RN RN vc1 Migdalia Dewey RN RN ko1 Sapphire Arriola
--- NOTE | 2023-02-23 20:47 | P.HP ---
Certification for Inpatient Patient admitted to: Observation Patient will require the following post-hospital care: None Practitioner: I am a practitioner with admitting privileges, knowledge of patient current condition, hospital course, and medical plan of care. Services: Services provided to patient in accordance with Admission requirements found in Title 42 Section 412.3 of the Code of Federal Regulations Patient History Date of Service: 02/23/23 Reason for admission: Shortness of breath History of Present Illness: Pt is an 87yo female with past medical history of CHf, HLD, Htn, asthma and CVA who presents with shortness of breath that started 1 to 2 days ago. Pt and her son noticed SOB with minimal exertion and pt was retaining fluid. She endorsed compliance with bumex at home, but she did not take her bumex while in transit during her vacation to [place] over the holidays. The symptoms progressively worsened and pt came to the ER for evaluation. On admission, lab studies show WBC 9.4, K 3.1, NA 137, Cr 0.81, glucose 173, troponin 74.5, BNP 1617 and Alk phos 126. CXR is unremarkable. The ER physician gave lasix and consulted medicine for admission. At bedside, pt is in NAD. She was somnolent but arousable when I saw her. Her son reports that bumex makes pt to have more urine output than lasix. Pt denies any chest pain, nausea, vomiting, abd pain, dysuria , or weigh loss but reports SOB and fluid retention. Allergies No Known Allergies Allergy (Verified 09/03/18 08:32) Home medications list reviewed: Yes Home Medications: Aspirin Chewable [Aspirin Chewable*] 81 mg PO DAILY 02/15/22 Atorvastatin Calcium [Lipitor*] 20 mg PO BEDTIME 02/15/22 Carvedilol [Coreg] 1 tab PO BID 11/19/22 Ipratropium/Albuterol Sulfate [Iprat-Albut 0.5-3(2.5) mg/3 ml] 3 ml IH BEDTIME 01/06/23 Spironolactone 12.5 mg PO DAILY 01/06/23 Fluticasone Propion/Salmeterol [Fluticasone-Salmeterol 250-50] 01/08/23 Benzonatate 200 mg PO Q8H PRN #15 cap 11/27/23 Bumetanide 2 mg PO BIDL 30 Days #60 tab 01/09/23 Potassium Chloride [Klor-Con M15] 15 meq PO DAILY 14 Days #14 tab 01/09/23 - Past Medical/Surgical History Has patient received pneumonia vaccine in the past: No Diabetic: No -: Hypertension -: Dyslipidemia -: CVA -: kidney stones -: Asthma -: Systolic heart failure -: Prediabetes -: Cholecystectomy Psychosocial/ Personal History: Patient lives at home with her children. - Social History Smoking Status: Never smoker Alcohol use: No CD- Drugs: No Caffeine use: Yes Place of Residence: Home Review of Systems Unremarkable General: Unremarkable Eyes: Unremarkable ENT: Unremarkable Respiratory: SOB with Excertion Cardiovascular: Edema Gastrointestinal: Unremarkable Genitourinary: Unremarkable Musculoskeletal: Unremarkable Integumentary: Unremarkable Neurological: Unremarkable Lymphatics: Unremarkable Physical Examination - Physical Exam General: Alert, In no apparent distress, Oriented x3 HEENT: Atraumatic, Normocephalic Neck: Supple, 2+ carotid pulse no bruit Respiratory: Clear to auscultation bilaterally, Normal air movement Cardiovascular: No edema, Normal pulses, Regular rate/rhythm, Normal S1 S2, Edema Capillary refill: <2 Seconds Gastrointestinal: Normal bowel sounds, Soft and benign, Non-distended Musculoskeletal: No clubbing, No swelling Integumentary: No rashes, No breakdown Neurological: Normal gait, Normal speech, Normal strength at 5/5 x4 extr, Sensation intact Lymphatics: No axilla or inguinal lymphadenopathy - Studies Laboratory Data (last 24 hrs) 02/23/23 02/23/23 02/23/23 17:20 17:20 17:20 WBC 9.40 Hgb 13.7 Hct 40.8 Plt Count 391 PT 12.6 H INR 1.15 Sodium 137 Potassium 3.1 L BUN 16 Creatinine 0.81 Glucose 173 H Magnesium 1.8 Total Bilirubin 0.5 AST 24 ALT 23 Alkaline Phosphatase 126 H Microbiology Data (last 24 hrs): 02/23/23 17:20 Nasopharnyx Influenza Type A Antigen Screen - Final 02/23/23 17:20 Nasopharnyx Influenza Type B Antigen Screen - Final Assessment and Plan - Plan 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 Will continue bumex 1mg iv daily, strict I/O, daily weight, low salt diet, coreg, and spironolactone. Will consult Cardiology. Echo from 01/05 shows EF 30 - 35% with anterior/apical hypokinesis with mild mitral regurgitation and aortic regurgitation. Troponin is 74.5. Pt denies any chest pain. Will trend troponin Q6h. Hypokalemia: k is 3.1. Will replet with KCL and check mag level. HLD: statin Htn; Continue home med Asthma: Stable. Not in exacerbation. Will continue prn oxygen and albuterol Hx of CVA: Will continue aspirin and statin DVT ppx: heparin Code: full Discharge Plan: Home - Advance Directives Does patient have a Living Will: No Does patient have a Durable POA for Healthcare: No - Code Status/Comfort Care Code Status Assessed: Yes Code Status: Full Code
[2023-02-23] MEDS ORDERED: ACETAMINOPHEN 325 MG TABLET PO PRN (20:58)
[2023-02-23] MEDS ORDERED: ONDANSETRON 4 MG/2 ML VIAL IV PRN (20:58)
[2023-02-23] MEDS ORDERED: ALBUTEROL 2.5 MG/3 ML NEB SOL NEB PRN (20:58)
[2023-02-23 22:49] VITALS: BMI 25.4
[2023-02-23] MEDS: BUMETANIDE 1 MG/4 ML VIAL IV SCH (22:57)
[2023-02-24] MEDS: HEPARIN 5000 UNIT/ML 1 ML VIAL SQ SCH ×3 (01:12→16:43)
[2023-02-24 07:13] LABS: Absolute Lymphocytes (CBC) 2.4 K/uL (0.7-4.9); Hematocrit 38.3 % (36.0-45.0); Lymphocytes % 31.9 % (15.3-44.8); MCV 82.2 fL (80-100); MPV 7.9 fL (7.6-11.3); Platelets 349 thou/uL (152-406); RBC Red Blood Cell Count 4.66 M/uL (3.86-4.86)
[2023-02-24 07:31] LABS: Potassium 2.8 mEq/L (3.5-5.1)
[2023-02-24] MEDS ORDERED: FUROSEMIDE 40 MG/4 ML VIAL IV SCH (09:00)
[2023-02-24] MEDS: carvediloL 3.125 MG TAB PO SCH ×2 (09:00→20:33)
[2023-02-24] MEDS ORDERED: NA CHLORIDE 0.9% 500 ML IV ONE (09:09)
[2023-02-24] MEDS: SPIRONOLACTONE 25 MG TABLET PO SCH (09:18)
[2023-02-24] MEDS: BUMETANIDE 1 MG/4 ML VIAL IV SCH (09:18)
[2023-02-24] MEDS: KCL 20 MEQ/100 mL IVPB 20 MEQ/100 ML BAG IV SCH ×3 (09:19→13:01)
[2023-02-24 12:42] VITALS: O2SAT 94
[2023-02-24] MEDS: ASPIRIN 81 MG CHEWABLE TABLET PO SCH (13:01)
--- NOTE | 2023-02-24 13:24 | EKG ---
Test Date: 2023-02-23 Test Time: 17:14:31 [employer] Specialist: Pablo CERNA MEASUREMENT RESULTS: Intervals: Rate: 102 MS: 162 QRSD: 146 QT: 418 QTc: 544 [place]: P: 81 MS: 162 QRS: -14 T: 84 INTERPRETIVE STATEMENTS: Sinus tachycardia Left bundle branch block Abnormal ECG Compared to ECG 12/16/2022 22:57:27 Sinus rhythm no longer present Sinus arrhythmia no longer present Left-axis deviation no longer present Electronically Signed On 02-24-23 13:22:34 [employer] by Preston Tubbs
[2023-02-24 13:31] LABS: Calcium Oxalate Crystals- Ur Few /HPF (None Seen); Specific Gravity 1.009 (1.005-1.030); Urine Bacteria <20 /HPF (<20); Urine Bilirubin NEGATIVE (Negative); Urine Blood Negative (Negative); Urine Clarity Extremely Turbid (Clear); Urine Color Light-Yellow (Yellow); Urine Glucose NEGATIVE (Negative); Urine Mucus Slight /HPF (None Seen); Urine Protein NEGATIVE (Negative); Urine RBC <5 /HPF (None Seen); Urine Urobilinogen Normal (Normal)
--- NOTE | 2023-02-24 15:15 | P.PN ---
Subjective Date of Service: 02/24/23 Chief Complaint: Shortness of breath Patient states her shortness of breath is better. Lower extremity swelling has resolved. She is tolerating room air. Physical Examination - Vital Signs Temperature: 98.6 F Blood Pressure: 129/71 Pulse: 87 Respirations: 17 Pulse Ox (%): 94 - Studies Laboratory Data (last 24 hrs) 02/23/23 02/23/23 02/23/23 17:20 17:20 17:20 WBC 9.40 Hgb 13.7 Hct 40.8 Plt Count 391 PT 12.6 H INR 1.15 Sodium 137 Potassium 3.1 L BUN 16 Creatinine 0.81 Glucose 173 H Magnesium 1.8 Total Bilirubin 0.5 AST 24 ALT 23 Alkaline Phosphatase 126 H Microbiology Data (last 24 hrs): 02/23/23 17:20 Nasopharnyx Influenza Type A Antigen Screen - Final 02/23/23 17:20 Nasopharnyx Influenza Type B Antigen Screen - Final Assessment And Plan - Current Problems (Diagnosis) (1) Acute on chronic systolic heart failure Current Visit: No Status: Acute (2) Obesity Onset Date: 01/01/18 Current Visit: No Status: Acute Qualifiers: Obesity type: due to excess calories Obesity classification: adult class 1 (BMI 30 - 34.9) Serious obesity comorbidity presence: without serious comorbidity Body mass index: BMI 34.0-34.9 Qualified Code(s): E66.09 - Other obesity due to excess calories; Z68.34 - Body mass index [BMI] 34.0-34.9, adult - Plan Acute on chronic systolic heart failure Most recent echocardiogram shows EF of 30 to 35%. Continue IV Bumex On Coreg and spironolactone Monitor intake and output Troponin is mildly elevated and this is likely secondary to demand ischemia. She is stable on room air. Increase activity as tolerated. Hypokalemia Replace potassium as needed. Monitor and optimize other electrolytes. Hyperlipidemia Continue home dose statin Essential hypertension/hx CVA Continue home meds Asthma Stable. Not in exacerbation. Bronchodilators as needed DVT ppx: heparin
[2023-02-24] MEDS ORDERED: NA CHLORIDE 0.9% 250 ML IV ONE (16:48)
[2023-02-24] MEDS ORDERED: KCL 20 MEQ/100 mL IVPB 20 MEQ/100 ML BAG IV SCH (17:00)
[2023-02-24] MEDS ORDERED: BENZONATATE 100 MG CAP PO PRN (19:28)
[2023-02-24] MEDS ORDERED: ATORVASTATIN 20 MG TAB PO SCH (21:00)
--- NOTE | 2023-02-24 21:29 | CON ---
Date of Consultation: 02/24/2023 Reason For Consultation: Heart failure exacerbation. History Of Present Illness: 87-year-old female, history of CHF, dyslipidemia, hypertension, presents with worsening shortness of breath and lower extremity edema for the past 2 days prior to the admiss ion. Denies having any chest pain. No nausea, vomiting, or fever. Past Medical History: As outlined above in the HPI. Medications: Refer to reconciliation sheet for detailed list. Allergies: NO KNOWN DRUG ALLERGIES. Family History: No premature coronary artery disease or cancer. Social History: Does not smoke or drink. Does not use any drugs. Review of Systems: All systems reviewed and are negative except as mentioned in the HPI. Physical Examination: Vital Signs: Reviewed. Head and Neck: Pupils are equal, reactive to light. Intact eye movements. There is no JVD. No cer vical adenopathy. Neck supple. Thyroid is not enlarged. Lungs: Clear to auscultation bilaterally. No rhonchi, rales, or crackles. No accessory muscle use. Heart: Regular rate and rhythm. No extra sounds. Abdomen: Soft, nontender. Bowel sounds positive. No organomegaly. No masses or hernia. No rigidi ty or rebound. Extremities: Mild edema bilaterally. No clubbing, cyanosis. Intact pulses. Skin: No rash. Neurologic: Alert, awake, oriented x3. No acute focal deficits appreciated. Investigations: NT-proBNP is 1617. Troponin 74. BUN is 14, creatinine 0.55. Assessment And Recommendation: 1.Acute on chronic systolic heart failure exacerbation. She is known to have a low ejection fractio n. I agree with IV Lasix 40 mg q.12 hours for another day and probably can be transitioned to oral b y tomorrow. 2.Elevated troponin. Check another one now. She does not have any chest pain. She will need ische kishore evaluation with a stress test. If the troponin does not go up substantially, this can be done as an outpatient. 3.Dyslipidemia. Recommend Lipitor 40 mg at bedtime. SR/MODL Voice ID: [id number] Report ID: [id number]
[2023-02-25] MEDS: HEPARIN 5000 UNIT/ML 1 ML VIAL SQ SCH ×2 (01:23→08:29)
[2023-02-25] MEDS: carvediloL 3.125 MG TAB PO SCH (08:25)
[2023-02-25 08:26] VITALS: BP 117/59
[2023-02-25] MEDS: SPIRONOLACTONE 25 MG TABLET PO SCH ×2 (08:27→08:28)
[2023-02-25] MEDS: BUMETANIDE 1 MG/4 ML VIAL IV SCH (08:29)
[2023-02-25 08:39] VITALS: TEMP 97
[2023-02-25] MEDS: ASPIRIN 81 MG CHEWABLE TABLET PO SCH (12:00)
--- NOTE | 2023-02-25 12:04 | P.DS ---
Admission Date: 02/25/23 Discharge Date: 02/25/23 Disposition: ROUTINE DISCHARGE Discharge Condition: FAIR Reason for Admission: Shortness of breath - Problems (1) Acute on chronic systolic heart failure Current Visit: No Status: Acute (2) Obesity Onset Date: 01/01/18 Current Visit: No Status: Acute Qualifiers: Obesity type: due to excess calories Obesity classification: adult class 1 (BMI 30 - 34.9) Serious obesity comorbidity presence: without serious comorbidity Body mass index: BMI 34.0-34.9 Qualified Code(s): E66.09 - Other obesity due to excess calories; Z68.34 - Body mass index [BMI] 34.0-34.9, adult Brief History of Present Illness: Pt is an 87yo female with past medical history of CHf, HLD, Htn, asthma and CVA who presented with shortness of breath of 1 to 2 days duration. Her son suspected patient was retaining fluid. She endorsed compliance with bumex at home, but she did not take her bumex during her vacation in [place] over the holidays. The symptoms progressively worsened and pt came to the ER for evaluation. On admission, lab studies show WBC 9.4, K 3.1, NA 137, Cr 0.81, glucose 173, troponin 74.5, BNP 1617 and Alk phos 126. CXR is unremarkable. The ER physician gave lasix and patient admitted for CHF exacerbation. Hospital Course: Patient admitted to the medical floor and the following medical problems addressed: Acute on chronic systolic heart failure Most recent echocardiogram shows EF of 30 to 35%. She was treated with IV Bumex Patient placed on Coreg and spironolactone Troponin was mildly elevated and this is likely secondary to demand ischemia. She was stable on room air. Hypokalemia Replaced potassium as needed. Hyperlipidemia Continued home dose statin Essential hypertension/hx CVA Continued home meds Asthma Stable. Not in exacerbation. Treated with bronchodilators as needed Vital Signs/Physical Exam: Temp Pulse Resp BP Pulse Ox 97.0 F 82 17 117/59 L 92 02/25/23 08:00 02/25/23 08:29 02/25/23 08:00 02/25/23 08:29 02/25/23 08:00 General: In no apparent distress, Oriented x3 HEENT: Mucous membr. moist/pink Neck: JVD not distended Respiratory: Clear to auscultation bilaterally, Normal air movement Cardiovascular: No edema, Regular rate/rhythm, Normal S1 S2 Gastrointestinal: Normal bowel sounds, Soft and benign, Non-distended Musculoskeletal: No swelling, No tenderness Integumentary: No rashes, No cyanosis Neurological: Normal strength at 5/5 x4 extr Laboratory Data at Discharge: WBC 7.70 thou/uL (4.3-10.9) 02/24/23 06:48 Hgb 12.9 g/dL (12.0-15.0) 02/24/23 06:48 Hct 38.3 % (36.0-45.0) 02/24/23 06:48 Plt Count 349 thou/uL (152-406) 02/24/23 06:48 PT 12.6 SECONDS (9.5-12.5) H 02/23/23 17:20 INR 1.15 02/23/23 17:20 Sodium 138 mEq/L (136-145) 02/24/23 06:48 Potassium 3.9 mEq/L (3.5-5.1) D 02/24/23 20:38 BUN 14 mg/dL (7-18) 02/24/23 06:48 Creatinine 0.55 mg/dL (0.55-1.02) 02/24/23 06:48 Glucose 125 mg/dL (74-106) H 02/24/23 06:48 Magnesium 1.8 mg/dL (1.6-2.4) 02/23/23 17:20 Total Bilirubin 0.5 mg/dL (0.2-1.0) 02/23/23 17:20 AST 24 U/L (15-37) 02/23/23 17:20 ALT 23 U/L (13-56) 02/23/23 17:20 Alkaline Phosphatase 126 U/L (45-117) H 02/23/23 17:20 Home Medications: Aspirin Chewable [Aspirin Chewable*] 81 mg PO DAILY 02/15/22 Atorvastatin Calcium [Lipitor*] 20 mg PO BEDTIME 02/15/22 Ipratropium/Albuterol Sulfate [Iprat-Albut 0.5-3(2.5) mg/3 ml] 3 ml IH BEDTIME 01/06/23 Spironolactone 12.5 mg PO DAILY 01/06/23 Fluticasone Propion/Salmeterol [Fluticasone-Salmeterol 250-50] 01/08/23 Potassium Chloride [Klor-Con M15] 15 meq PO DAILY 14 Days #14 tab 01/09/23 Benzonatate [Tessalon Perle*] 100 mg PO TID PRN #30 cap 02/25/23 Bumetanide 2 mg PO BIDL 30 Days #60 tab 02/25/23 carvediloL [Coreg*] 3.125 mg PO BID tab 02/25/23 New Medications: Bumetanide 2 mg PO BIDL 30 Days #60 tab Benzonatate [Tessalon Perle*] 100 mg PO TID PRN #30 cap PRN Reason: Cough Diet: AHA Activity: Fall precautions Followup: MESSI SWENSON [Primary Care Provider] - 1 Week Time spent managing pt's care (in minutes): 32
== END 2023-02-25 13:08 | disposition home or self-care (01) | DRG 291 ==
LOC: ER 15:21 → 4TH 20:44 → OBSVTOIN 02-25 11:04
PROVIDERS: ADMIT Hospitalist; ATTEND Internal Medicine
DX: I11.0 Hypertensive heart disease with heart failure (principal); I50.23 Acute on chronic systolic (congestive) heart failure; I24.89 Other forms of acute ischemic heart disease; E87.6 Hypokalemia; E78.5 Hyperlipidemia, unspecified; I08.0 Rheumatic disorders of both mitral and aortic valves; J45.909 Unspecified asthma, uncomplicated; E66.09 Other obesity due to excess calories; Z68.25 Body mass index [BMI] 25.0-25.9, adult; Z86.73 Personal history of transient ischemic attack (TIA), and cerebral infarction without residual deficits; Z90.49 Acquired absence of other specified parts of digestive tract; Z90.710 Acquired absence of both cervix and uterus; Z79.82 Long term (current) use of aspirin; Z79.02 Long term (current) use of antithrombotics/antiplatelets; Z79.899 Other long term (current) drug therapy
CPT/HCPCS: 36415; 71045; 80048; 80076; 81001; 83735; 83880; 84132; 84484; 85025; 85610; 87804; 87811; 93005; 96374; 99285; G0378; J1644; J1940; J3480; J7040; J7050

== ENCOUNTER 2023-03-16 03:43 | Inpatient (IN) | payer OTHER ==
[2023-03-16 04:34] LABS: Arterial Blood Carboxyhemoglob 1.3 % (0-1.5); Blood Gas Oxyhemoglobin 70.8 % (94-97); Blood O2 Saturation 72.8 % (92-98.5)
[2023-03-16] MEDS ORDERED: IPRATROPIUM BROM 0.5MG/2.5ML ONE (04:38)
[2023-03-16] MEDS ORDERED: ALBUTEROL 2.5 MG/3 ML NEB SOL ONE (04:38)
[2023-03-16] MEDS ORDERED: METHYLPREDNISOLONE 125 MG INJ ONE (04:48)
[2023-03-16 04:51] LABS: Absolute Lymphocytes (CBC) 1.9 K/uL (0.7-4.9); Hematocrit 38.5 % (36.0-45.0); Lymphocytes % 19.1 % (15.3-44.8); MCV 81.7 fL (80-100); MPV 8.5 fL (7.6-11.3); Platelets 318 thou/uL (152-406); RBC Red Blood Cell Count 4.71 M/uL (3.86-4.86)
[2023-03-16 04:56] LABS: Protime INR 1.04
[2023-03-16] MEDS ORDERED: BUMETANIDE 1 MG/4 ML VIAL ONE (05:02)
[2023-03-16 05:14] LABS: Albumin 3.3 g/dL (3.4-5.0); Bilirubin Direct 0.1 mg/dL (0-0.2); Bilirubin Indirect, Calculated 0.5 mg/dL (0.2-0.8); Bilirubin Total 0.6 mg/dL (0.2-1.0); Magnesium 2.1 mg/dL (1.6-2.4); Potassium 3.4 mEq/L (3.5-5.1); Protein, Total 7.4 g/dL (6.4-8.2)
[2023-03-16 05:15] LABS: Troponin High Sensitivity 106.6 pg/mL (<58.9)
[2023-03-16] MEDS ORDERED: ASPIRIN 81 MG CHEWABLE TABLET ONE (05:55)
[2023-03-16] MEDS ORDERED: HEPARIN 5000 UNIT/ML 1 ML VIAL ONE (05:55)
[2023-03-16] MEDS ORDERED: HEPARIN/D5W 25,000 UNIT/500 ML BAG IV ONE (05:56)
--- NOTE | 2023-03-16 07:00 | ER ---
Nurse's Notes [facility] Name: Erika Jacobson Age: 87 yrs Sex: Female : 1935 Arrival Date: 03/16/2023 Time: 03:43 Bed 5 Private MD: Diagnosis: Acute diastolic (congestive) heart failure;Acute NSTEMI, pulmonary edema, CHF exacerbation Presentation: 03/16 03:49 Chief complaint: Patient's son or daughter states: SOB and cough beginning yesterday lg3 afternoon. Coronavirus screen: Client denies travel out of the [place] in the last 14 days. Ebola Screen: No symptoms or risks identified at this time. Initial Sepsis Screen: Does the patient meet any 2 criteria? No. Patient's initial sepsis screen is negative. Does the patient have a suspected source of infection? No. Patient's initial sepsis screen is negative. Risk Assessment: Do you want to hurt yourself or someone else? Patient reports no desire to harm self or others. Onset of symptoms was March 15, 2023. 03:49 Method Of Arrival: Wheelchair lg3 03:49 Acuity: ISHAN 3 lg3 Triage Assessment: 03:52 General: Appears in no apparent distress. comfortable, Behavior is calm, cooperative. lg3 Pain: Denies pain. EENT: No deficits noted. No signs and/or symptoms were reported regarding the EENT system. Neuro: No deficits noted. Liu Agitation-Sedation Scale (RASS): 0 - Alert and Calm Level of Consciousness is awake, alert, obeys commands, Oriented to person, place, time, situation. Cardiovascular: No deficits noted. Denies chest pain, Capillary refill < 3 seconds Clubbing of nail beds is absent JVD is absent Patient's skin is warm and dry. Respiratory: Reports shortness of breath cough that is Airway is patent Respiratory effort is even, unlabored, Respiratory pattern is regular, symmetrical, Onset: The symptoms/episode began/occurred yesterday, the patient has mild shortness of breath. GI: No deficits noted. No signs and/or symptoms were reported involving the gastrointestinal system. : No deficits noted. No signs and/or symptoms were reported regarding the genitourinary system. Derm: No deficits noted. No signs and/or symptoms reported regarding the dermatologic system. Skin is intact, is healthy with good turgor, Skin is dry, Skin is normal, Skin temperature is warm. Musculoskeletal: No deficits noted. No signs and/or symptoms reported regarding the musculoskeletal system. Circulation, motion, and sensation intact. Range of motion: intact in all extremities. Historical: - Allergies: 03:52 No Known Allergies; lg3 - PMHx: 03:52 Asthma; Congestive heart failure; CVA; Hyperlipidemia; Hypertension; lg3 - PSHx: 03:52 choleycestectomy; hysterectomy; kidney stones; lg3 - Immunization history:: Adult Immunizations up to date, Client reports receiving the 2nd dose of the Covid vaccine, Flu vaccine is up to date. - Social history:: Smoking status: Patient denies any tobacco usage or history of. Patient/guardian denies using alcohol, street drugs. - Family history:: not pertinent. Screenin:00 [facility] ED Fall Risk Assessment (Adult) History of falling in the last 3 months, jw7 including since admission Yes- single mechanical fall (1 pt) Confusion or Disorientation No (0 pts) Intoxicated or Sedated No (0 pts) Impaired Gait Yes (1 pt) Mobility Assist Device Used Yes (1 pt) Altered Elimination No (0 pt) Score/Fall Risk Level 3 or more points = High Risk Oriented to surroundings, Maintained a safe environment, Educated pt \T\ family on fall prevention, incl call for assistance when getting out of bed, Provided non-skid footwear, Hourly rounding (assess needs \T\ fall precautionary measures) done. Abuse screen: Denies threats or abuse. Denies injuries from another. Nutritional screening: No deficits noted. Tuberculosis screening: No symptoms or risk factors identified. Assessment: 04:00 General: See Triage Assessment. jw7 Vital Signs: 03:49 BP 150 / 79; Pulse 114; Resp 18 S; Temp 98.4(O); Pulse Ox 94% on R/A; Weight 63.5 kg lg3 (R); Height 5 ft. 3 in. (R); Pain 0/10; 04:30 BP 151 / 67; Pulse 92; Resp 17 S; Pulse Ox 96% on R/A; ha1 05:30 BP 131 / 61; Pulse 96; Resp 17 S; Pulse Ox 98% on R/A; ha1 07:00 BP 122 / 65; Pulse 80; Resp 18; Pulse Ox 95% on R/A; db 07:20 BP 122 / 51; Pulse 81; Resp 18; Pulse Ox 97% on R/A; db 03:49 Body Mass Index 24.80 (63.50 kg, 160.02 cm) lg3 03:49 Pain Scale: Adult lg3 ED Course: 03:45 Patient arrived in ED. jj6 03:51 Triage completed. lg3 03:52 Arm band placed on right wrist. lg3 03:56 Kyle Low MD is Attending Physician. sp4 04:00 Patient has correct armband on for positive identification. Bed in low position. Call jw7 light in reach. Side rails up X2. 04:16 XRAY CXR (1 view) In Process Unspecified. EDMS 04:25 First set of blood cultures drawn. jw7 04:38 Inserted saline lock: 22 gauge in right antecubital area, using aseptic technique. oe Blood collected. 04:39 Troponin HS Sent. oe 04:39 Ptt, Activated Sent. oe 04:39 PT-INR Sent. oe 04:39 NT PRO-BNP Sent. oe 04:39 Magnesium Sent. oe 04:39 Lipase Sent. oe 04:39 Hepatic Function Sent. oe 04:40 D-Dimer Sent. oe 04:40 CPK Sent. oe 04:40 CBC with Diff Sent. oe 04:40 BMP Sent. oe 04:40 Second set of blood cultures drawn by ED staff. jw7 04:41 Blood Culture Adult (2) Sent. oe 04:45 Lactate w/ 2H reflex if indic. Sent. oe 05:30 [place] cath inserted, using sterile technique, 16 Fr., by me, balloon inflated, to ha1 gravity drainage, returned clear yellow urine. Patient tolerated well. 05:47 Blood Culture Adult (2) Sent. ha1 06:12 Inserted saline lock: 24 gauge in left forearm, using aseptic technique. oe 06:41 CT Chest For PE Angio In Process Unspecified. EDMS 06:58 Meka Erazo MD is Hospitalizing Provider. sp4 07:00 Report received from Estelle Jones RN. kc6 07:34 Samantha Long RN is Primary Nurse. db 07:50 Repeat lab(s) drawn. by me, sent to lab. db 08:23 Notified ED physician of a critical lab result(s). lactate 4.6. ll1 Administered Medications: 05:15 Drug: MethylPrednisoLONE IVP 125 mg IVP once Route: IVP; Site: right antecubital; ha1 05:30 Drug: Bumetanide IVP 1 mg IVP once Route: IVP; Site: right antecubital; ha1 06:00 Drug: HEParin IV 5000 units IV at bolus once {Co-Signature: nando (Ale Rose RN).} ha1 Route: IV; Rate: bolus; Site: right antecubital; 06:00 Drug: Aspirin PO Chewable Tablet 324 mg PO once; 81 mg tablets x 4 Route: PO; ha1 06:15 Drug: Heparin (AR Drip) 12 units/kg/hr - ([place] [address] units, D5W IV 500 ml) IV at ha1 calculated rate Per protocol; Max initial rate 1000 units/hr {Co-Signature: nando (Ale Rose RN).} Route: IV; Rate: calculated rate; Site: right antecubital; Medication: 06:35 VIS not applicable for this client. ha1 Outcome: 06:59 Decision to Hospitalize by Provider. sp4 10:49 Patient left the ED. kc6 Signatures: Dispatcher [employer] EDMS Bandar Mancilla Lacie RN VIVIENNE lg3 Blaine Valverde RN RN ll1 Louise Quintanaj6 Lily Mendez RN RN jw7 Estelle Jones RN RN ha1 Carlota Hicks RN RN kc6 Samantha Long RN RN db Potepalov, Sergey, MD MD sp4 Ale Rose RN km8 Corrections: (The following items were deleted from the chart) 04:44 03:30 General: See Triage Assessment. jw7 jw7
--- NOTE | 2023-03-16 07:00 | EDPHYS ---
Physician Documentation [facility] Name: Erika Jacobson Age: 87 yrs Sex: Female : 1935 Arrival Date: 03/16/2023 Time: 03:43 Bed 5 Private MD: ED Physician Kyle Low HPI: 03/16 03:56 This 87 yrs old Female presents to ER via Wheelchair with complaints of sp4 Breathing Difficulty. 04:15 87-year-old female with past medical history of asthma, CHF, CVA, hyperlipidemia, sp4 hypertension presents with acute worsening dyspnea over the past 3 days. Patient denied chest pain denied edema. 05:49 Last admission records 02/25/2023 for acute on chronic systolic heart failure. Also sp4 full morbid obesity, history of CHF hyperlipidemia hypertension asthma CVA, patient's EF 30 to 35%, treated with IV Bumex during last admission. Placed on Coreg and spironolactone. All medications include aspirin 81 mg daily, atorvastatin 20 mg daily, ipratropium albuterol bedtime, fluticasone-salmeterol, potassium, benzonatate, Bumex 2 mg p.o. twice daily, carvedilol 3.125 p.o. twice daily. Historical: - Allergies: 03:52 No Known Allergies; lg3 - PMHx: 03:52 Asthma; Congestive heart failure; CVA; Hyperlipidemia; Hypertension; lg3 - PSHx: 03:52 choleycestectomy; hysterectomy; kidney stones; lg3 - Immunization history:: Adult Immunizations up to date, Client reports receiving the 2nd dose of the Covid vaccine, Flu vaccine is up to date. - Social history:: Smoking status: Patient denies any tobacco usage or history of. Patient/guardian denies using alcohol, street drugs. - Family history:: not pertinent. ROS: 04:15 Constitutional: Negative for fever, chills, and weight loss, positive dyspnea sp4 04:15 All other systems are negative, Exam: 04:13 Constitutional: This is a well developed, well nourished patient who is awake, alert, sp4 and in no acute distress. Positive for frail elderly female dyspneic on arrival Head/Face: Normocephalic, atraumatic. Eyes: Pupils equal round and reactive to light, extra-ocular motions intact. Lids and lashes normal. Conjunctiva and sclera are not injected. Cornea within normal limits. Periorbital areas with no swelling, redness, or edema. ENT: Nares patent. No nasal discharge, no septal abnormalities noted. Tympanic membranes are normal and external auditory canals are clear. Oropharynx with no redness, swelling, or masses, exudates, or evidence of obstruction, uvula midline. Mucous membranes moist. Neck: Trachea midline, no thyromegaly or masses palpated, and no cervical lymphadenopathy. Supple, full range of motion without nuchal rigidity, or vertebral point tenderness. Positive JVD Chest/axilla: Normal chest wall appearance and motion. Nontender with no deformity. No lesions are appreciated. Cardiovascular: Regular rate and rhythm with a normal S1 and S2. No gallops, murmurs, or rubs. Normal PMI, positive JVD. No pulse deficits. Respiratory: Lungs have equal breath sounds bilaterally, clear to auscultation and percussion. No rales, rhonchi or wheezes noted. No increased work of breathing, no retractions or nasal flaring. Positive dyspnea Abdomen/GI: Soft, non-tender, with normal bowel sounds. No distension or tympany. No guarding or rebound. No evidence of tenderness throughout. Back: No spinal tenderness. No costovertebral tenderness. Skin: Warm, dry with normal turgor. Normal color with no rashes, no lesions, and no evidence of cellulitis. MS/ Extremity: Pulses equal, no cyanosis. Neurovascular intact. Full, normal range of motion. Neuro: Awake and alert, GCS 15, oriented to person, place, time, and situation. Cranial nerves II-XII grossly intact. Motor strength 5/5 in all extremities. Sensory grossly intact. Psych: Awake, alert, with orientation to person, place and time. Behavior, mood, and affect are within normal limits 04:13 ECG was reviewed by the Attending Physician. EKG at 0404 sinus tachycardia at the rate 112, left axis deviation, left bundle branch block. Vital Signs: 03:49 BP 150 / 79; Pulse 114; Resp 18 S; Temp 98.4(O); Pulse Ox 94% on R/A; Weight 63.5 kg lg3 (R); Height 5 ft. 3 in. (R); Pain 0/10; 04:30 BP 151 / 67; Pulse 92; Resp 17 S; Pulse Ox 96% on R/A; ha1 05:30 BP 131 / 61; Pulse 96; Resp 17 S; Pulse Ox 98% on R/A; ha1 07:00 BP 122 / 65; Pulse 80; Resp 18; Pulse Ox 95% on R/A; db 07:20 BP 122 / 51; Pulse 81; Resp 18; Pulse Ox 97% on R/A; db 03:49 Body Mass Index 24.80 (63.50 kg, 160.02 cm) lg3 03:49 Pain Scale: Adult lg3 MDM: 04:03 Patient medically screened. sp4 04:13 Data reviewed: vital signs, nurses notes, old medical records, lab test result(s), EKG, sp4 radiologic studies, plain films. 05:43 Differential diagnosis: Anxiety Reaction asthma, Bronchitis CHF exacerbation, Chronic sp4 Obstructive Pulmonary Disease Myocardial Infarction. ED course: CLINICAL HISTORY: CHEST PAIN COMPARISON: 08/28/2022. 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 There is diffuse interstitial prominence throughout. There is no pleural effusion. There is no pneumothorax. There are no acute osseous findings. IMPRESSION: Chronic diffuse interstitial prominence.. 07:52 ED course: EXAM DESCRIPTION: CT - Chest For Pe Angio - 03/16/2023 6:39 am CLINICAL sp4 HISTORY: CHEST PAIN COMPARISON: Chest For Pe Angio dated 01/05/2023; Chest For Pe Angio dated 11/01/2022; Chest For Pe Angio dated 08/03/2022; Chest For Pe Angio dated 05/08/2022 TECHNIQUE: Dynamically enhanced axial 3 mm thick images of the chest were obtained during administration of <100> mL Isovue 370 IV contrast. Coronal and oblique reconstruction images were generated and reviewed. Exam utilizes a protocol for optimal evaluation of pulmonary arterial tree. Maximum intensity projections 3D imaging was utilized All CT scans are performed using dose optimization technique as appropriate and may include automated exposure control or mA/KV adjustment according to patient size. FINDINGS: Chest Wall: No suspicious thyroid nodules or pathologic lymphadenopathy. Lungs: Interlobular septal thickening. Limited by motion. Bronchial wall thickening. Pleura: Small bilateral pleural effusions. Mediastinum/sondra: No pathologic lymphadenopathy. Pulmonary arteries/Aorta: No filling defect identified. No aortic aneurysm. Heart: No significant pericardial effusion. Mild cardiomegaly. Upper abdomen: No acute abnormality.Atherosclerosis. Bones: No acute abnormality. IMPRESSION: Negative for pulmonary embolism. Pulmonary edema with small bilateral effusions. . 03/16 04:02 Order name: BMP; Complete Time: 05:23 sp4 03/16 04:02 Order name: Blood Culture Adult (2) sp4 03/16 04:02 Order name: CBC with Diff; Complete Time: 05:23 sp4 03/16 04:02 Order name: CPK; Complete Time: 05:23 sp4 03/16 04:02 Order name: D-Dimer; Complete Time: 05:23 sp4 03/16 04:02 Order name: Hepatic Function; Complete Time: 05:23 sp4 03/16 04:02 Order name: Lipase; Complete Time: 05:23 sp4 03/16 04:02 Order name: Magnesium; Complete Time: 05:23 sp4 03/16 04:02 Order name: NT PRO-BNP; Complete Time: 05:23 sp4 03/16 04:02 Order name: PT-INR; Complete Time: 05:23 sp4 03/16 04:02 Order name: Ptt, Activated; Complete Time: 05:23 sp4 03/16 04:02 Order name: Troponin HS; Complete Time: 05:23 sp4 03/16 04:02 Order name: ABG; Complete Time: 05:23 sp4 03/16 04:14 Order name: Lactate w/ 2H reflex if indic.; Complete Time: 05:23 ha1 03/16 07:41 Order name: Basic Metabolic Panel EDMS / 07:41 Order name: Basic Metabolic Panel EDMS / 07:41 Order name: Basic Metabolic Panel EDMS / 07:41 Order name: Basic Metabolic Panel EDMS 03/16 07:41 Order name: CBC with Automated Diff EDMS / 07:41 Order name: CBC with Automated Diff EDMS / 07:41 Order name: CBC with Automated Diff EDMS / 07:41 Order name: CBC with Automated Diff EDMS / 07:41 Order name: NT PRO-BNP EDMS 03/16 07:41 Order name: NT PRO-BNP EDMS / 07:41 Order name: Troponin High Sensitivity EDNH 03/16 07:41 Order name: Troponin High Sensitivity EDNH 03/16 07:41 Order name: Troponin High Sensitivity EDNH 03/16 07:41 Order name: Troponin High Sensitivity EDNH 03/16 08:24 Order name: Lactate Sepsis 2 HR Follow-up EDNH 03/16 10:16 Order name: Ptt, Activated db 03/16 10:16 Order name: Troponin High Sensitivity db 03/16 04:02 Order name: XRAY CXR (1 view) 4 03/16 05:24 Order name: CT Chest For PE Angio sp4 03/16 04:02 Order name: EKG; Complete Time: 04:03 sp4 03/16 07:41 Order name: CONS Physician Consult EDNH 03/16 04:02 Order name: Cardiac monitoring; Complete Time: 04:39 sp4 03/16 04:02 Order name: EKG - Nurse/Tech; Complete Time: 04:06 sp4 03/16 04:02 Order name: [place]; Complete Time: 05:47 sp4 03/16 04:02 Order name: IV Saline Lock; Complete Time: 04:39 sp4 03/16 04:02 Order name: Labs collected and sent; Complete Time: 04:39 sp4 03/16 04:02 Order name: O2 Per Protocol; Complete Time: 04:39 sp4 03/16 04:02 Order name: O2 Sat Monitoring; Complete Time: 04:39 sp4 EC:13 Rate is 112 beats/min. Rhythm is regular, Sinus tachycardia. Left axis deviation noted. sp4 IN interval is normal. QRS interval is prolonged. QT interval is normal. No ST changes noted. Clinical impression: No evidence of ischemia. Interpreted by me. Reviewed by me. Administered Medications: 05:15 Drug: MethylPrednisoLONE IVP 125 mg IVP once Route: IVP; Site: right antecubital; ha1 05:30 Drug: Bumetanide IVP 1 mg IVP once Route: IVP; Site: right antecubital; ha1 06:00 Drug: HEParin IV 5000 units IV at bolus once {Co-Signature: [email or web address] (Ale Rose RN).} ha1 Route: IV; Rate: bolus; Site: right antecubital; 06:00 Drug: Aspirin PO Chewable Tablet 324 mg PO once; 81 mg tablets x 4 Route: PO; ha1 06:15 Drug: Heparin (MS Drip) 12 units/kg/[place] - ([place] [address] units, D5W IV 500 ml) IV at ha1 calculated rate Per protocol; Max initial rate 1000 units/hr {Co-Signature: [email or web address] (Ale Rose RN).} Route: IV; Rate: calculated rate; Site: right antecubital; Disposition: 06:59 Critical Care:. sp4 Disposition Summary: 03/16/23 06:59 Hospitalization Ordered Notes: Hospitalization Status: Inpatient Admission sp4 Provider: Meka Erazo Location: Telemetry/[facility] (Inpatient) sp4 Condition: Stable sp4 Problem: new sp4 Symptoms: have improved sp4 Bed/Room Type: Standard sp4 Room Assignment: 428(03/16/23 09:00) bc6 Diagnosis - Acute diastolic (congestive) heart failure sp4 - Acute NSTEMI, pulmonary edema, CHF exacerbation sp4 Forms: - Medication Reconciliation Form sp4 - SBAR form sp4 - Leadership Thank You Letter sp4 Critical care time excluding procedures: 06:59 Critical care time: Bedside Care: 36 minutes, Consultation: 12 minutes, Family sp4 Intervention: 12 minutes. Total time: 60 minutes Signatures: Dispatcher [employer] EDMS Vani Tatum RN RN lg3 Estelle Jones RN RN ha1 Minerva Jurado 6 Kyle Low MD MD spAle Luna RN [id number] Corrections: (The following items were deleted from the chart) 07:56 07:41 Echo with Doppler ordered. EDMS EDMS 09:00 06:59 sp4 bc6
--- NOTE | 2023-03-16 07:27 | RAD REPORT ---
EXAM DESCRIPTION: CT - Chest For Pe Angio - 03/16/2023 6:39 am CLINICAL HISTORY: CHEST PAIN COMPARISON: Chest For Pe Angio dated 01/05/2023; Chest For Pe Angio dated 11/01/2022; Chest For Pe An keisha dated 08/03/2022; Chest For Pe Angio dated 05/08/2022 TECHNIQUE: Dynamically enhanced axial 3 mm thick images of the chest were obtained during administra tion of <100> mL Isovue 370 IV contrast. Coronal and oblique reconstruction images were generated and reviewed. Exam utilizes a protocol for optimal evaluation of pulmonary arterial tree. Maximum intensity projections 3D imaging was utilized All CT scans are performed using dose optimization technique as appropriate and may include automated exposure control or mA/KV adjustment according to patient size. FINDINGS: Chest Wall: No suspicious thyroid nodules or pathologic lymphadenopathy. Lungs: Interlobular septal thickening. Limited by motion. Bronchial wall thickening. Pleura: Small bilateral pleural effusions. Mediastinum/sondra: No pathologic lymphadenopathy. Pulmonary arteries/Aorta: No filling defect identified. No aortic aneurysm. Heart: No significant pericardial effusion. Mild cardiomegaly. Upper abdomen: No acute abnormality.Atherosclerosis. Bones: No acute abnormality. IMPRESSION: Negative for pulmonary embolism. Pulmonary edema with small bilateral effusions.
[2023-03-16] MEDS ORDERED: HYDROCODONE/APAP 5/325 MG TAB PO PRN (07:33)
[2023-03-16] MEDS ORDERED: ACETAMINOPHEN 500 MG TAB PO PRN (07:33)
[2023-03-16] MEDS ORDERED: IPRATROPIUM BROM 0.5MG/2.5ML NEB PRN (07:33)
[2023-03-16] MEDS ORDERED: MORPHINE 4 MG/ML SYR IV PRN (07:33)
[2023-03-16] MEDS ORDERED: ALBUTEROL 2.5 MG/3 ML NEB SOL NEB PRN (07:33)
[2023-03-16] MEDS ORDERED: NITROGLYCERIN 0.4 MG/TAB SL PRN (07:36)
--- NOTE | 2023-03-16 08:00 | P.HP ---
Certification for Inpatient Patient admitted to: Inpatient With expected LOS: <2 Midnights Patient will require the following post-hospital care: None Practitioner: I am a practitioner with admitting privileges, knowledge of patient current condition, hospital course, and medical plan of care. Services: Services provided to patient in accordance with Admission requirements found in Title 42 Section 412.3 of the Code of Federal Regulations <Janette Mclaughlin - Last Filed: 03/16/23 08:26> Patient History Date of Service: 03/16/23 Reason for admission: Acute CHF, Acute NSTEMI History of Present Illness: Ms. Zhou, 87-year-old female with past medical history of asthma, CHF, CVA, hyperlipidemia, hypertension presents to the emergency room with acute worsening of dyspnea over the last 3 days. Patient denies chest pain, or edema. Patient was admitted 2 weeks ago in the hospital with similar complaints. Patient and her son report there has been no change in the medications and patient was compliant to take her medications as prescribed. Onset of symptoms 3 days ago, worsening, unable to sleep due to shortness of breath, negative for fever chills, nausea or vomiting. ED course: Vital signs:Blood pressure 150/79, pulse 114, respiration 18, temperature 98.4, pulse ox 94% on room air, weight 63.5 kg height 5 3, pain 0/10. EKG showing sinus tachycardia with a left axis deviation and LBBB. Laboratory evaluationCBC is normal, BMP showing hypokalemia potassium 3.4, elevated D-dimer 1453, elevated lactic acid 3.4, elevated troponin 106.6, elevated BNP 1987. CT chest for PE angio 03/16/2023negative for pulmonary embolism. Pulmonary edema with a small bilateral pleural effusions. Patient was given methylprednisone, demented denied, aspirin. 324, heparin drip in the emergency room. Admitting the patient with a diagnosis of acute diastolic congestive heart failure, acute NSTEMI, pulmonary edema, CHF exacerbation. - Past Medical/Surgical History Diabetic: No -: Hypertension -: Dyslipidemia -: CVA -: kidney stones -: Asthma -: Systolic heart failure -: Prediabetes -: Cholecystectomy Psychosocial/ Personal History: Patient lives at home with her children. - Social History Smoking Status: Never smoker Alcohol use: No CD- Drugs: No Caffeine use: Yes Place of Residence: Home <Janette Mclaughlin - Last Filed: 03/16/23 08:26> Date of Service: 03/16/23 <Meka Erazo - Last Filed: 03/16/23 15:13> Allergies No Known Allergies Allergy (Verified 09/03/18 08:32) Home Medications: Aspirin Chewable [Aspirin Chewable*] 81 mg PO DAILY 02/15/22 Atorvastatin Calcium [Lipitor*] 20 mg PO BEDTIME 02/15/22 Ipratropium/Albuterol Sulfate [Iprat-Albut 0.5-3(2.5) mg/3 ml] 3 ml IH BEDTIME 01/06/23 Spironolactone 12.5 mg PO DAILY 01/06/23 Fluticasone Propion/Salmeterol [Fluticasone-Salmeterol 250-50] 01/08/23 Benzonatate [Tessalon Perle*] 200 mg PO TID PRN 03/16/23 Bumetanide 1.5 mg PO BIDL 03/16/23 Review of Systems 10-point ROS is otherwise unremarkable <Janette Mclaughlin - Last Filed: 03/16/23 08:26> Physical Examination - Physical Exam General: Alert, Oriented x3 HEENT: Atraumatic, Normocephalic Neck: Supple, 2+ carotid pulse no bruit Respiratory: Clear to auscultation bilaterally, Normal air movement Cardiovascular: No edema, Normal pulses, Other (dyspnea) Capillary refill: <2 Seconds Gastrointestinal: Normal bowel sounds, Soft and benign Musculoskeletal: No clubbing, No swelling Integumentary: No rashes, No breakdown Neurological: Normal speech, Normal tone, Sensation intact - Studies Laboratory Data (last 24 hrs) 03/16/23 03/16/23 03/16/23 04:20 04:20 04:20 WBC 9.80 Hgb 13.0 Hct 38.5 Plt Count 318 PT 11.4 INR 1.04 APTT 37.1 H Sodium 136 Potassium 3.4 L BUN 9 Creatinine 0.70 Glucose 142 H Magnesium 2.1 Total Bilirubin 0.6 AST 14 L ALT 19 Alkaline Phosphatase 125 H Lipase 51 <Janette Mclaughlin - Last Filed: 03/16/23 08:26> - Studies Laboratory Data (last 24 hrs) 03/16/23 03/16/23 03/16/23 04:20 04:20 04:20 WBC 9.80 Hgb 13.0 Hct 38.5 Plt Count 318 PT 11.4 INR 1.04 APTT 37.1 H Sodium 136 Potassium 3.4 L BUN 9 Creatinine 0.70 Glucose 142 H Magnesium 2.1 Total Bilirubin 0.6 AST 14 L ALT 19 Alkaline Phosphatase 125 H Lipase 51 <Meka Erazo Denisha - Last Filed: 03/16/23 15:13> Assessment and Plan - Problems (Diagnosis) (1) Elevated troponin Current Visit: No Status: Acute (2) Acute CHF Current Visit: No Status: Acute Qualifiers: Heart failure type: diastolic Qualified Code(s): I50.31 - Acute diastolic (congestive) heart failure (3) Acute on chronic diastolic heart failure Current Visit: No Status: Acute (4) Hypertension Current Visit: No Status: Chronic Qualifiers: Hypertension type: primary hypertension Qualified Code(s): I10 - Essential (primary) hypertension (5) LBBB (left bundle branch block) Current Visit: No Status: Chronic (6) Lactic acidosis Current Visit: No Status: Acute (7) NSTEMI (non-ST elevated myocardial infarction) Current Visit: No Status: Acute (8) Shortness of breath Current Visit: No Status: Acute (9) Acute on chronic diastolic heart failure Current Visit: No Status: Acute (10) Dyslipidemia Current Visit: No Status: Chronic - Plan Acute on chronic diastolic heart failure, Shortness of breath,Pulmonary edema: Acute on Chronic Decompensated Systolic/Diastolic Congestive Heart Failure Patient presents with symptoms of shortness of breath, dyspnea on exertion over the last 3 days. On exam, patient demonstrates dyspnea and jugular venous distension. Patient was recently admitted in the hospital with a similar complaints. Patient reports since no change of medications or no sick contacts recently. At this time, will admit for diuresis and medical optimization. - Consult Cardiology -Dr. Portillo recommendations appreciated - Ordered transthoracic echocardiogram - Diuresis with Lasix for today - Hold home Bumetanide - Continue home carvedilol - Daily weights - Strict I/O - Cardiac diet, 2 L fluid restriction, 2 g Na restriction Elevated troponin, LBBB, NSTEMI -Based on history and physical examination, cannot exclude ischemia as a possible etiology of chest pain. Patient denies chest pain - Evaluation thus far: - EKG: Twelve-lead EKG showing sinus tachycardia at a rate of 112/min, left axis deviation, left bundle branch block. - Serial troponin - Ordered transthoracic echocardiogram - Ordered chest x-ray - [id number] - Management plan: - Consult Cardiology -Dr. Portillo recommendations appreciated - started heparin infusion in the emergency room -daily baby aspirin - Symptom control with PRN acetaminophen, nitroglycerin, morphine Lactic acidosis Sepsis - Sepsis order set was initiated as patient's presents with the shortness of br eath and tachycardia - Initial Lactate was 1.4, trend - Blood cultures drawn before antibiotics were given after antibiotics were given because patient was started on antibiotics for [text] prior to sepsis criteria being met - Broad spectrum antibiotics started: Ceftriaxone 1gm IV daily - In regards to fluids: - 30 mL/kg of IV fluids was not administered given SBP > 90, MAP > 65, lactic acid < 4 , with h/o CHF, fluis overload, elevated BNP 1987 Hypertension -Chronic, controlled continue the current home medications Hyperlipidemia -Chronic, controlled continue the current home medications Asthma -Chronic, controlled continue the current home medications CVA -Chronic, no focal residual deficits, controlled continue the current home medications CODE STATUSfull code Dietcardiac DVT prophylaxisheparin Discharge Plan: Home Plan to discharge in: 48 Hours - Advance Directives Does patient have a Living Will: No Does patient have a Durable POA for Healthcare: No - Code Status/Comfort Care Code Status Assessed: Yes (full code) Code Status: Full Code Physician Review: Patient Assessed, Agree with Above Assessment and Plan Critical Care: No Time Spent Managing Pts Care (In Minutes): 55 (minutes) <Janette Mclaughlin - Last Filed: 03/16/23 08:26> - Plan Pt seen and examined. I agree with the note by the EPIC WILLOW ANALYST. Pt is an 87yo female with past medical history of asthma, CHF, CVA, hyperlipidemia, and hypertension who presents SOB for the past 3 day. 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 This history is from pt''s son at bedside. Of note, pt was here 2 weeks ago with similar complaints. Her son reports compliance with diuretic at home. Pt presented with leg edema. ER physician gave lasix and she had good urine output. On admission, lab studies show WBC 9.8, K 3.4, Hgb 13, Cr 0.7, lactate 4.6 and troponin 100 -> 157, and D-dimer 1453. CXR shows pulm edema. At bedside, pt is in NAD. A/P: A/C diastolic heart failure: Will continue diuretic, strict I/O and daily weight. Pt is diuresing well. NSTEMI: Likely due to CHF. Will trend troponin Q6h. Continue heparin drip. Consulted Mission Systems Engineer. Elevated D-dimer: It is 1453. CTA chest is negative for PE. Will continue heparin drip for NSTEMI. Lactic acidosis: Unknown source of infection. Will continue empiric rocephin for now. Follow up blood cx. Hypokalemia: k is 3.4. Will replete and monitor. Will continue home med for other chronic medical problems. Code: full <Meka Erazo - Last Filed: 03/16/23 15:13>
[2023-03-16] MEDS ORDERED: ASPIRIN EC 81 MG TAB PO SCH (09:00)
[2023-03-16] MEDS ORDERED: FUROSEMIDE 20 MG/ 2ML VIAL IV SCH (09:00)
[2023-03-16] MEDS ORDERED: ASPIRIN EC 81 MG TAB PO ONE (09:31)
[2023-03-16] MEDS ORDERED: FUROSEMIDE 20 MG/ 2ML VIAL ONE (09:32)
[2023-03-16] MEDS ORDERED: CEFTRIAXONE 1,000 MG in NA CHLORIDE 0.9% 50 ML IVPB SCH (10:00)
[2023-03-16 10:19] VITALS: BMI 24.7
[2023-03-16] MEDS ORDERED: HEPARIN/D5W 25,000 UNIT/500 ML BAG IV SCH ×2 (11:00→15:00)
[2023-03-16 12:19] LABS: Specific Gravity 1.022 (1.005-1.030); Urine Bilirubin NEGATIVE (Negative); Urine Blood Negative (Negative); Urine Clarity Clear (Clear); Urine Color Colorless (Yellow); Urine Glucose NEGATIVE (Negative); Urine Protein NEGATIVE (Negative); Urine Urobilinogen Normal (Normal)
--- NOTE | 2023-03-16 12:43 | RAD REPORT ---
EXAM DESCRIPTION: RAD - Chest Single View - 03/16/2023 4:14 am CLINICAL HISTORY: CHEST PAIN COMPARISON: 08/28/2022. TECHNIQUE: XR CHEST 1 VIEW 03/16/2023 4:02 AM COOKEE FINDINGS: The heart is enlarged. There is diffuse interstitial prominence throughout. There is no pl eural effusion. There is no pneumothorax. There are no acute osseous findings. IMPRESSION: Chronic diffuse interstitial prominence. Electronically signed by: Jacob Garduno MD 03/16/2023 04:28 AM COOKEE Due to temporary technical issues with the PACS/Fluency reporting system, reports are being signed by the in house radiologist without review as a courtesy to ensure prompt reporting. The interpreting r adiologist is fully responsible for the content of the report.
--- NOTE | 2023-03-16 13:22 | EKG ---
Test Date: 2023-03-16 Test Time: 04:04:33 Reduction Furnace Operator: ADONAY MEASUREMENT RESULTS: Intervals: Rate: 112 MI: 158 QRSD: 142 QT: 376 QTc: 513 Halliday: P: 62 MI: 158 QRS: -81 T: 78 INTERPRETIVE STATEMENTS: Sinus tachycardia Left axis deviation Left bundle branch block Abnormal ECG Compared to ECG 02/23/2023 17:14:31 Left-axis deviation now present Electronically Signed On 03-16-23 13:21:07 WATER VALVE MECHANIC by Preston Tubbs
[2023-03-17 03:19] LABS: Absolute Lymphocytes (CBC) 1.3 K/uL (0.7-4.9); Hematocrit 34.6 % (36.0-45.0); MCV 81.7 fL (80-100); MPV 9.4 fL (7.6-11.3); Platelets 329 thou/uL (152-406); RBC Red Blood Cell Count 4.23 M/uL (3.86-4.86)
[2023-03-17 03:39] LABS: Potassium 3.4 mEq/L (3.5-5.1)
[2023-03-17] MEDS ORDERED: D50W 25 GM/50 ML SYRINGE IV PRN (08:40)
[2023-03-17] MEDS ORDERED: GLUCAGON 1 MG/VIAL IM PRN (08:40)
[2023-03-17] MEDS ORDERED: BENZONATATE 100 MG CAP PO PRN (08:43)
[2023-03-17] MEDS ORDERED: POTASSIUM CL SA 10 MEQ TAB PO ONE (08:45)
[2023-03-17] MEDS ORDERED: HEPARIN 500 UNIT/5 ML SYR IV SCH (09:00)
[2023-03-17] MEDS ORDERED: POTASSIUM 25 MEQ EFFERV TAB PO ONE (09:00)
[2023-03-17] MEDS ORDERED: D10W 125 ML IV PRN (09:06)
[2023-03-17] MEDS: INSULIN GLARGINE 100 UNIT/ML SQ SCH (09:48)
[2023-03-17] MEDS: INSULIN REGULAR (HUMAN) 100 UNIT/ML SQ SCH ×4 (09:49→20:47)
[2023-03-17] MEDS: SPIRONOLACTONE 25 MG TABLET PO SCH (09:50)
[2023-03-17] MEDS: ASPIRIN 81 MG CHEWABLE TABLET PO SCH (09:50)
[2023-03-17] MEDS: BUMETANIDE 1 MG/4 ML VIAL IV SCH (09:51)
--- NOTE | 2023-03-17 10:05 | P.PN ---
Subjective Date of Service: 03/17/23 Chief Complaint: Acute CHF, Acute NSTEMI Subjective: No new changes, Improving, Doing well Patient is alert and oriented x 3 Resting in the bed NAD Denies any pain or shortness of breath Vital stable Son reporting the BS has been running high <Janette Mclaughlin - Last Filed: 03/17/23 10:00> Date of Service: 03/17/23 <KwasiMeka medrano Denisha - Last Filed: 03/17/23 17:58> Review of Systems 10-point ROS is otherwise unremarkable <Janette Mclaughlin - Last Filed: 03/17/23 10:00> Physical Examination - Vital Signs Temperature: 97.9 F Blood Pressure: 124/59 Pulse: 96 Respirations: 16 Pulse Ox (%): 95 - Physical Exam General: Alert, Oriented x3 HEENT: Atraumatic, Normocephalic Neck: Supple, 2+ carotid pulse no bruit Respiratory: Clear to auscultation bilaterally, Normal air movement Cardiovascular: No edema, Normal pulses Capillary refill: <2 Seconds Gastrointestinal: Normal bowel sounds, Soft and benign Musculoskeletal: No clubbing, No swelling Integumentary: No rashes Neurological: Normal gait, Normal speech, Normal tone, Normal affect <Janette Mclaughlin - Last Filed: 03/17/23 10:00> Assessment And Plan - Current Problems (Diagnosis) (1) Elevated troponin Current Visit: No Status: Acute (2) Acute CHF Current Visit: No Status: Acute Qualifiers: Heart failure type: diastolic Qualified Code(s): I50.31 - Acute diastolic (congestive) heart failure (3) Acute on chronic diastolic heart failure Current Visit: No Status: Acute (4) Hypertension Current Visit: No Status: Chronic Qualifiers: Hypertension type: primary hypertension Qualified Code(s): I10 - Essential (primary) hypertension (5) LBBB (left bundle branch block) Current Visit: No Status: Chronic (6) Lactic acidosis Current Visit: No Status: Acute (7) NSTEMI (non-ST elevated myocardial infarction) Current Visit: No Status: Acute (8) Shortness of breath Current Visit: No Status: Acute (9) Acute on chronic diastolic heart failure Current Visit: No Status: Acute (10) Dyslipidemia Current Visit: No Status: Chronic (11) Hyperglycemia Current Visit: Yes Status: Acute - Plan Acute on chronic diastolic heart failure, Shortness of breath,Pulmonary edema: Acute on Chronic Decompensated Systolic/Diastolic Congestive Heart Failure Patient presents with symptoms of shortness of breath, dyspnea on exertion over the last 3 days. On exam, patient demonstrates dyspnea and jugular venous distension. Patient was recently admitted in the hospital with a similar complaints. Patient reports since no change of medications or no sick contacts recently. At this time, will admit for diuresis and medical optimization. - Consult Cardiology -Dr. Portillo recommendations appreciated - Ordered transthoracic echocardiogram - Diuresis with Lasix for today - Hold home Bumetanide - Continue home carvedilol - Daily weights - Strict I/O - Cardiac diet, 2 L fluid restriction, 2 g Na restriction Elevated troponin, LBBB, NSTEMI -Based on history and physical examination, cannot exclude ischemia as a possible etiology of chest pain. Patient denies chest pain - Evaluation thus far: - EKG: Twelve-lead EKG showing sinus tachycardia at a rate of 112/min, left axis deviation, left bundle branch block. - Serial troponin - Ordered transthoracic echocardiogram - Ordered chest x-ray - [id number] - Management plan: - Consult Cardiology -Dr. Portillo recommendations appreciated - started heparin infusion in the emergency room -daily baby aspirin - Symptom control with PRN acetaminophen, nitroglycerin, morphine Lactic acidosis Sepsis - Sepsis order set was initiated as patient's presents with the shortness of breath and tachycardia - Initial Lactate was 1.4, trend - Blood cultures drawn before antibiotics were given after antibiotics were given because patient was started on antibiotics for [text] prior to sepsis criteria being met - Broad spectrum antibiotics started: Ceftriaxone 1gm IV daily - In regards to fluids: - 30 mL/kg of IV fluids was not administered given SBP > 90, MAP > 65, lactic acid < 4 , with h/o CHF, fluis overload, elevated BNP 1987 Hypertension -Chronic, controlled continue the current home medications Hyperlipidemia -Chronic, controlled continue the current home medications Asthma -Chronic, controlled continue the current home medications CVA -Chronic, no focal residual deficits, controlled continue the current home medications Type 2 DM with Hyperglycemia -Chronic. ucontrolled w/hyperglycemia -Plan sugar check before meals and at bedtime with aggressive dose sliding scale insulin -A1c ordered -Lantus ordered -Hypoglycemic precautions CODE STATUSfull code Dietcardiac DVT prophylaxisheparin Discharge Plan: Home Plan to discharge in: 24 Hours - Code Status/Comfort Care Code Status Assessed: Yes (full code) Code Status: Full Code Physician Review: Patient Assessed, Agree with Above Assessment and Plan Critical Care: No Time Spent Managing PTS Care (In Minutes): 35 (minutes) <Janette Mclaughlin - Last Filed: 03/17/23 10:00> - Plan Pt seen and examined. I agree with the note by the POST HOLE DIGGING MACHINE OPERATOR. Will follow up Echo. Replete potassium and optimize insulin regimen. <Meka Erazo - Last Filed: 03/17/23 17:58>
[2023-03-17 10:24] LABS: Absolute Lymphocytes (CBC) 2.3 K/uL (0.7-4.9); Hematocrit 34.8 % (36.0-45.0); Lymphocytes % 14.8 % (15.3-44.8); MCV 82.1 fL (80-100); MPV 8.6 fL (7.6-11.3); Platelets 336 thou/uL (152-406); RBC Red Blood Cell Count 4.24 M/uL (3.86-4.86)
[2023-03-17] MEDS: KCL 20 MEQ/100 mL IVPB 20 MEQ/100 ML BAG IV SCH ×2 (11:36→15:10)
--- NOTE | 2023-03-17 20:14 | CON ---
Date of Consultation: 03/16/2023 Reason For Consultation: CHF and elevated troponin. History Of Present Illness: This is an 87-year-old female, history of congestive heart failure, hype rlipidemia, hypertension, and asthma, presented to the hospital with shortness of breath, mild chest discomfort. She describes it as more of tightness. No zhen chest pain. No nausea, vomiting, diarr hea. No other complaints. Past Medical History: As outlined above. Medications: Refer to reconciliation sheet for detailed list. Allergies: NO KNOWN DRUG ALLERGIES. Family History: No premature coronary artery disease or cancer. Social History: She does not smoke or drink. Does not use any drugs. Review of Systems: All systems reviewed and they were negative except as mentioned in the HPI. Physical Examination: Vital Signs: Reviewed. Head and Neck: Pupils are equal, reactive to light. Intact eye movements. No cervical lymphadenopa thy. Neck is supple. Thyroid is not enlarged. Positive JVD. Neurologic: Alert, awake, oriented x3. No acute focal deficits appreciated. Lymph Nodes: No cervical or axillary lymphadenopathy. Investigations: BUN 9, creatinine 0.7. Troponin 106. NT-proBNP is 1987. Assessment And Recommendations: 1.Acute on chronic congestive heart failure exacerbation. Agree with diuretics on Bumex. Monitor B UN, creatinine, and electrolytes. 2.Elevated troponin with chest tightness. Recommend ischemia evaluation. Initially recommended lef t heart catheterization, but family hesitant to do it, then I recommend to do a Lexiscan nuclear stre ss test to further evaluate for ischemia and obtain an echo if it was not done recently. 3.Dyslipidemia. Continue statin. SR/MODL Voice ID: [id number] Report ID: [id number]
[2023-03-17] MEDS ORDERED: IPRATROPIUM BROM 0.5MG/2.5ML IH SCH (21:00)
[2023-03-17] MEDS ORDERED: HOME MED 1 EA UNK (Ipratropium/Albuterol Sulfate [Iprat-Albut 0.5-3(2.5) Mg/3 Ml] 3 ML Amp IH SCH (21:00)
[2023-03-17] MEDS ORDERED: ALBUTEROL 2.5 MG/3 ML NEB SOL NEB SCH (21:00)
[2023-03-17] MEDS ORDERED: ATORVASTATIN 20 MG TAB PO SCH (21:00)
[2023-03-18 04:40] VITALS: O2SAT 95
[2023-03-18 06:59] LABS: Absolute Lymphocytes (CBC) 2.6 K/uL (0.7-4.9); Hematocrit 34.8 % (36.0-45.0); Lymphocytes % 24.2 % (15.3-44.8); MPV 9.3 fL (7.6-11.3); Platelets 292 thou/uL (152-406); RBC Red Blood Cell Count 4.24 M/uL (3.86-4.86)
[2023-03-18] MEDS: INSULIN REGULAR (HUMAN) 100 UNIT/ML SQ SCH ×2 (07:30→12:35)
[2023-03-18] MEDS: SPIRONOLACTONE 25 MG TABLET PO SCH (09:00)
[2023-03-18] MEDS: ASPIRIN 81 MG CHEWABLE TABLET PO SCH (09:25)
[2023-03-18] MEDS: BUMETANIDE 1 MG/4 ML VIAL IV SCH (09:25)
[2023-03-18] MEDS: INSULIN GLARGINE 100 UNIT/ML SQ SCH (09:27)
[2023-03-18 12:52] VITALS: BP 113/57; TEMP 97.9
--- NOTE | 2023-03-18 14:55 | P.DS ---
Admission Date: 03/16/23 Discharge Date: 03/18/23 Reason for Admission: Acute CHF, Acute NSTEMI - Problems (1) Elevated troponin Status: Acute (2) Acute CHF Status: Acute Qualifiers: Heart failure type: diastolic Qualified Code(s): I50.31 - Acute diastolic (congestive) heart failure (3) Acute on chronic diastolic heart failure Status: Acute (4) Hypertension Status: Chronic Qualifiers: Hypertension type: primary hypertension Qualified Code(s): I10 - Essential (primary) hypertension (5) LBBB (left bundle branch block) Status: Chronic (6) Lactic acidosis Status: Acute (7) NSTEMI (non-ST elevated myocardial infarction) Status: Acute (8) Shortness of breath Status: Acute (9) Acute on chronic diastolic heart failure Status: Acute (10) Dyslipidemia Status: Chronic (11) Hyperglycemia Status: Acute Brief History of Present Illness: Ms. Zhou, 87-year-old female with past medical history of asthma, CHF, CVA, hyperlipidemia, hypertension presents to the emergency room with acute worsening of dyspnea over the last 3 days. Patient denies chest pain, or edema. Patient was admitted 2 weeks ago in the hospital with similar complaints. Patient and her son report there has been no change in the medications and patient was compliant to take her medications as prescribed. Onset of symptoms 3 days ago, worsening, unable to sleep due to shortness of breath, negative for fever chills, nausea or vomiting. ED course: Vital signs:Blood pressure 150/79, pulse 114, respiration 18, temperature 98.4, pulse ox 94% on room air, weight 63.5 kg height 5 3, pain 0/10. EKG showing sinus tachycardia with a left axis deviation and LBBB. Laboratory evaluationCBC is normal, BMP showing hypokalemia potassium 3.4, elevated D-dimer 1453, elevated lactic acid 3.4, elevated troponin 106.6, elevated BNP 1986. CT chest for PE angio 03/16/2023negative for pulmonary embolism. Pulmonary edema with a small bilateral pleural effusions. Patient was given methylprednisone, demented denied, aspirin. 324, heparin drip in the emergency room. Admitting the patient with a diagnosis of acute diastolic congestive heart failure, acute NSTEMI, pulmonary edema, CHF exacerbation. Hospital Course: Ms. Zhou is a pleasant 87-year-old female with a past medical history s ignificant for asthma, CHF, CVA, hyperlipidemia, hypertension who was admitted to the [facility] on 03/16/2023 for shortness of breath. Patient was admitted in the hospital, started on oxygen, diuresed with Lasix. Consulted and seen by site technician to elevated cardiac enzymes. On 03/18/2023, patient was seen on morning rounds and deemed medically stable for discharge. Patient was discharged with instructions to schedule follow-up appointments with PCP in 1 week and site technician in 2 weeks. The patient and family members were given the opportunity to ask questions and reported no further questions. 1. Please call and schedule a follow-up appointment with your PCP in 1 week 2. Please call and schedule a follow-up appointment with site technician in 2 weeks - Please follow-up with your PCP for medication refills/adjustments -Please call if any questions regarding hospital stay -Please call nursing station at [phone] if any nursing or medication questions -Return to the emergency room if symptoms worsen. <Janette Mclaughlin - Last Filed: 03/18/23 14:53> Admission Date: 03/16/23 Discharge Date: 03/18/23 Hospital Course: Pt seen and examined. I agree with the note by the FISHERIES MANAGER. Ok to discharge pt. Pt's son refused Cardiac cath and NM stress test recommended by Dr. Tubbs. He plans to take her mom to her site technician for further cardiac work up. <Meka Erazo - Last Filed: 03/18/23 20:56> Disposition: ROUTINE DISCHARGE Discharge Condition: GOOD Vital Signs/Physical Exam: Temp Pulse Resp BP Pulse Ox 97.9 F 79 16 113/57 L 97 03/18/23 12:00 03/18/23 12:00 03/18/23 12:00 03/18/23 12:03/18/23 12:00 General: Alert, In no apparent distress, Oriented x3 HEENT: Atraumatic, Normocephalic Neck: Supple, 2+ carotid pulse no bruit Respiratory: Clear to auscultation bilaterally, Normal air movement Cardiovascular: No edema, Normal pulses Capillary refill: <2 Seconds Gastrointestinal: Normal bowel sounds, Soft and benign Musculoskeletal: No clubbing, No swelling Integumentary: No rashes, No breakdown Neurological: Normal speech, Normal affect Laboratory Data at Discharge: WBC 10.70 thou/uL (4.3-10.9) 03/18/23 06:35 Hgb 11.6 g/dL (12.0-15.0) L 03/18/23 06:35 Hct 34.8 % (36.0-45.0) L 03/18/23 06:35 Plt Count 292 thou/uL (152-406) 03/18/23 06:35 PT 11.4 SECONDS (9.5-12.5) 03/16/23 04:20 INR 1.04 03/16/23 04:20 APTT 85.0 SECONDS (24.3-36.9) H 03/18/23 12:56 Sodium 138 mEq/L (136-145) 03/18/23 06:35 Potassium 4.0 mEq/L (3.5-5.1) 03/18/23 06:35 BUN 22 mg/dL (7-18) H 03/18/23 06:35 Creatinine 0.71 mg/dL (0.55-1.02) 03/18/23 06:35 Glucose 138 mg/dL (74-106) H 03/18/23 06:35 Magnesium 2.1 mg/dL (1.6-2.4) 03/16/23 04:20 Total Bilirubin 0.6 mg/dL (0.2-1.0) 03/16/23 04:20 AST 14 U/L (15-37) L 03/16/23 04:20 ALT 19 U/L (13-56) 03/16/23 04:20 Alkaline Phosphatase 125 U/L (45-117) H 03/16/23 04:20 Lipase 51 U/L (13-75) 03/16/23 04:20 <Janette Mclaughlin - Last Filed: 03/18/23 14:53> Vital Signs/Physical Exam: Temp Pulse Resp BP Pulse Ox 97.9 F 79 16 113/57 L 97 03/18/23 12:00 03/18/23 12:00 03/18/23 12:00 03/18/23 12:00 03/18/23 12:00 Laboratory Data at Discharge: WBC 10.70 thou/uL (4.3-10.9) 03/18/23 06:35 Hgb 11.6 g/dL (12.0-15.0) L 03/18/23 06:35 Hct 34.8 % (36.0-45.0) L 03/18/23 06:35 Plt Count 292 thou/uL (152-406) 03/18/23 06:35 PT 11.4 SECONDS (9.5-12.5) 03/16/23 04:20 INR 1.04 03/16/23 04:20 APTT 85.0 SECONDS (24.3-36.9) H 03/18/23 12:56 Sodium 138 mEq/L (136-145) 03/18/23 06:35 Potassium 4.0 mEq/L (3.5-5.1) 03/18/23 06:35 BUN 22 mg/dL (7-18) H 03/18/23 06:35 Creatinine 0.71 mg/dL (0.55-1.02) 03/18/23 06:35 Glucose 138 mg/dL (74-106) H 03/18/23 06:35 Magnesium 2.1 mg/dL (1.6-2.4) 03/16/23 04:20 Total Bilirubin 0.6 mg/dL (0.2-1.0) 03/16/23 04:20 AST 14 U/L (15-37) L 03/16/23 04:20 ALT 19 U/L (13-56) 03/16/23 04:20 Alkaline Phosphatase 125 U/L (45-117) H 03/16/23 04:20 Lipase 51 U/L (13-75) 03/16/23 04:20 <Meka Erazo - Last Filed: 03/18/23 20:56> Diet: Low sodium Activity: Ad mark anthony Time spent managing pt's care (in minutes): 55 (minutes) <Janette Mclaughlin - Last Filed: 03/18/23 14:53> <Meka Erazo - Last Filed: 03/18/23 20:56> Home Medications: Aspirin Chewable [Aspirin Chewable*] 81 mg PO DAILY 02/15/22 Atorvastatin Calcium [Lipitor*] 20 mg PO BEDTIME 02/15/22 Ipratropium/Albuterol Sulfate [Iprat-Albut 0.5-3(2.5) mg/3 ml] 3 ml IH BEDTIME 01/06/23 Spironolactone 12.5 mg PO DAILY 01/06/23 Fluticasone Propion/Salmeterol [Fluticasone-Salmeterol 250-50] 01/08/23 Benzonatate [Tessalon Perle*] 200 mg PO TID PRN 03/16/23 Bumetanide 1.5 mg PO BIDL 03/16/23 Physician Discharge Instructions: Ms. Zhou is a pleasant 87-year-old female with a past medical history significant for asthma, CHF, CVA, hyperlipidemia, hypertension who was admitted to the [facility] on 03/16/2023 for shortness of breath. Patient was admitted in the hospital, started on oxygen, diuresed with Lasix. Consulted and seen by site technician to elevated cardiac enzymes. On 03/18/2023, patient was seen on morning rounds and deemed medically stable for discharge. Patient was discharged with instructions to schedule follow-up appointments with PCP in 1 week and site technician in 2 weeks. The patient and family members were given the opportunity to ask questions and reported no further questions. 1. Please call and schedule a follow-up appointment with your PCP in 1 week 2. Please call and schedule a follow-up appointment with site technician in 2 weeks - Please follow-up with your PCP for medication refills/adjustments -Please call if any questions regarding hospital stay -Please call nursing station at [phone] if any nursing or medication questions -Return to the emergency room if symptoms worsen. Followup: Angela Rodas MD [Primary Care Provider] -
--- NOTE | 2023-03-20 15:12 | EKG ---
Test Date: 2023-03-16 Test Time: 19:49:16 Director Information Security: PRIMO MEASUREMENT RESULTS: Intervals: Rate: 113 LA: 156 QRSD: 146 QT: 344 QTc: 471 [place]: P: 43 LA: 156 QRS: -27 T: 103 INTERPRETIVE STATEMENTS: Sinus tachycardia Possible Left atrial enlargement Left bundle branch block Abnormal ECG Compared to ECG 03/16/2023 04:04:33 Left-axis deviation no longer present Electronically Signed On 03-20-23 15:03:11 WOOD LAST MAKER by Preston Tubbs
== END 2023-03-18 15:49 | disposition home health service (06) | DRG 871 ==
LOC: ER 03:43 → ERHOLD 07:31 → 4TH 10:20
PROVIDERS: ADMIT Hospitalist; ATTEND Hospitalist
DX: A41.9 Sepsis, unspecified organism (principal); I21.A1 Myocardial infarction type 2; I50.33 Acute on chronic diastolic (congestive) heart failure; E87.20 Acidosis, unspecified; I11.0 Hypertensive heart disease with heart failure; E78.5 Hyperlipidemia, unspecified; E87.6 Hypokalemia; J45.909 Unspecified asthma, uncomplicated; I44.7 Left bundle-branch block, unspecified; R73.9 Hyperglycemia, unspecified; Z79.82 Long term (current) use of aspirin; Z90.49 Acquired absence of other specified parts of digestive tract; Z86.73 Personal history of transient ischemic attack (TIA), and cerebral infarction without residual deficits; Z90.710 Acquired absence of both cervix and uterus; Z79.899 Other long term (current) drug therapy
CPT/HCPCS: 36415; 36600; 71045; 71275; 80048; 80076; 81003; 82550; 82805; 82947; 83036; 83605; 83690; 83735; 83880; 84484; 85025; 85379; 85610; 85730; 87040; 93005; 94640; J0696; J1644; J1815; J1940; J2930; J3480; J7613; J7644; Q9967

== ENCOUNTER 2023-05-04 02:35 | Inpatient (IN) | payer OTHER ==
[2023-05-04] MEDS ORDERED: DIAZEPAM 10 MG/2 ML INJ SYRINGE ONE (02:59)
[2023-05-04] MEDS: ONDANSETRON 4 MG/2 ML VIAL ONE (03:05)
[2023-05-04] MEDS: BUMETANIDE 1 MG/4 ML VIAL ONE (03:12)
[2023-05-04 03:39] LABS: Absolute Eosinophils 0.2 K/uL (0-0.5); Absolute Lymphocytes (CBC) 1.2 K/uL (0.7-4.9); Absolute Monocytes 0.4 K/uL (0.1-1.3); Absolute Neutrophil 6.6 K/uL (1.8-8.0); Basophils % 0.3 % (0-1.3); Hematocrit 32.9 % (36.0-45.0); Hemoglobin 10.9 g/dL (12.0-15.0); Lymphocytes % 14.4 % (15.3-44.8); MCH 25.8 pg (27.0-35.0); MCHC 33.1 g/dL (32.0-36.0); MCV 78.1 fL (80-100); Monocytes % 4.9 % (3.3-12.3); Neutrophils % 78.4 % (41.7-73.7); Nucleated Red Blood Cells % 0.1 % (0-0); Platelets 345 thou/uL (152-406); RBC Red Blood Cell Count 4.21 M/uL (3.86-4.86); Red Cell Distribution Width 15.5 % (12.1-15.2)
[2023-05-04 04:05] LABS: Albumin 3.3 g/dL (3.4-5.0); Albumin/Globulin Ratio 0.8 (1.1-1.8); Bilirubin Direct 0.2 mg/dL (0-0.2); Bilirubin Indirect, Calculated 0.7 mg/dL (0.2-0.8); Bilirubin Total 0.9 mg/dL (0.2-1.0); C-Reactive Protein 7.81 mg/L (<3.00); Protein, Total 7.3 g/dL (6.4-8.2)
[2023-05-04 04:06] LABS: Blood O2 Saturation 98.9 % (92-98.5)
[2023-05-04 04:07] LABS: Arterial Blood Carboxyhemoglob 1.2 % (0-1.5); Blood Gas Oxyhemoglobin 96.3 % (94-97); Blood Gas THB 10.7 g/dl (12-18)
[2023-05-04 04:08] LABS: Anion Gap 11.2 mEq/L (5.0-15.0); Potassium 3.2 mEq/L (3.5-5.1)
[2023-05-04 04:11] LABS: Troponin High Sensitivity 77.1 pg/mL (<58.9)
--- NOTE | 2023-05-04 05:55 | ER ---
Nurse's Notes [facility] Name: Erika Jacobson Age: 88 yrs Sex: Female : 1935 Arrival Date: 05/04/2023 Time: 02:35 Bed 17 Private MD: Diagnosis: Chronic combined systolic (congestive) and diastolic (congestive) heart failure;Hypoxemia Presentation: 05/03 02:48 Chief complaint: Patient's son or daughter states: She has been feeling bad since jb4 yesterday and suddenly 2 hours ago her breathing got worse. She has not complained of any pain, just that she cannot breathe. Coronavirus screen: At this time, the client does not indicate any symptoms associated with coronavirus-19. Ebola Screen: No symptoms or risks identified at this time. Initial Sepsis Screen: Does the patient meet any 2 criteria? HR > 90 bpm. Yes Does the patient have a suspected source of infection? No. Patient's initial sepsis screen is negative. Risk Assessment: Do you want to hurt yourself or someone else? Patient reports no desire to harm self or others. Onset of symptoms was May 04, 2023. Transition of care: patient was not received from another setting of care. 02:48 Method Of Arrival: Wheelchair jb4 02:48 Acuity: ISHAN 2 jb4 Triage Assessment: 02:50 General: Appears distressed, uncomfortable, ill, Behavior is calm, cooperative. Pain: jb4 Denies pain. Neuro: Level of Consciousness is awake, alert, obeys commands, Oriented to person, place, time, situation. Cardiovascular: Patient's skin is warm and dry. Respiratory: Reports shortness of breath at rest on exertion Onset: The symptoms/episode began/occurred 2 hours GLOBAL CEO, the patient has moderate shortness of breath. Historical: - Allergies: 02:50 No Known Allergies; jb4 - Home Meds: 02:50 aspirin 81 mg Oral chew 1 tab once daily [Active]; carvedilol 3.125 mg Oral tablet 0.5 jb4 tab 2 times per day [Active]; losartan 100 mg Oral tab 1 tab once daily [Active]; Lasix 40 mg Oral tablet 2 tabs morning and noon [Active]; atorvastatin 20 mg Oral tablet 1 tab every day at bedtime [Active]; - PMHx: 02:50 Asthma; Congestive heart failure; CVA; Hyperlipidemia; Hypertension; jb4 - PSHx: 02:50 choleycestectomy; hysterectomy; kidney stones; jb4 - Immunization history:: Adult Immunizations unknown. - Social history:: Smoking status: Patient denies any tobacco usage or history of. - Family history:: not pertinent. Screenin:50 [facility] ED Fall Risk Assessment (Adult) History of falling in the last 3 months, jw7 including since admission No falls in past 3 months (0 pts) Confusion or Disorientation No (0 pts) Intoxicated or Sedated No (0 pts) Impaired Gait Yes (1 pt) Mobility Assist Device Used Yes (1 pt) Altered Elimination No (0 pt) Score/Fall Risk Level 0 - 2 = Low Risk Oriented to surroundings, Maintained a safe environment, Educated pt \T\ family on fall prevention, incl call for assistance when getting out of bed. Abuse screen: Denies threats or abuse. Denies injuries from another. Nutritional screening: No deficits noted. Tuberculosis screening: No symptoms or risk factors identified. Assessment: 02:50 General: Appears distressed, uncomfortable, Behavior is calm, cooperative. Pain: Denies jw7 pain. Neuro: Level of Consciousness is awake, alert, obeys commands, Oriented to person, place, time, situation. Cardiovascular: Heart tones S1 S2 present Capillary refill < 3 seconds Clubbing of nail beds is absent JVD is absent Patient's skin is warm and dry. Rhythm is sinus rhythm. Respiratory: Airway is patent Trachea midline Respiratory effort is even, unlabored, Respiratory pattern is regular, symmetrical, Breath sounds with crackles bilaterally. the patient has moderate shortness of breath. GI: Abdomen is round non-distended, Bowel sounds present X 4 quads. Abd is soft and non tender X 4 quads. : No deficits noted. No signs and/or symptoms were reported regarding the genitourinary system. EENT: No deficits noted. No signs and/or symptoms were reported regarding the EENT system. Derm: Skin is intact, is healthy with good turgor, Skin is dry, Skin is normal, Skin temperature is warm. Musculoskeletal: Circulation, motion, and sensation intact. Range of motion: intact in all extremities. 04:00 Reassessment: Patient and/or family updated on plan of care and expected duration. Pain vc1 level reassessed. Patient states feeling better. Patient states symptoms have improved. 05:00 Reassessment: Patient appears in no apparent distress at this time. No changes from jw7 previously documented assessment. Patient and/or family updated on plan of care and expected duration. Pain level reassessed. Patient is alert, oriented x 3, equal unlabored respirations, skin warm/dry/pink. 06:30 Reassessment: Patient appears in no apparent distress at this time. No changes from jw7 previously documented assessment. Patient and/or family updated on plan of care and expected duration. Pain level reassessed. Patient is alert, oriented x 3, equal unlabored respirations, skin warm/dry/pink. 07:00 Reassessment: RECD REPORT FROM LILY PALAFOX. 88YO HF P/W SOB. PT ON BIPAP, ADMIT COMPLETED. bp 08:00 Reassessment: REPORT FAXED AT 0800 FOR KEZIA PALAFOX, RM 411. bp Vital Signs: 02:50 BP 173 / 94; Pulse 124; Resp 24; Temp 97(TE); Pulse Ox 85% on R/A; Weight 59 kg (M); jb4 Height 5 ft. 3 in. ; Pain 0/10; 04:00 BP 99 / 46; Pulse 75; Resp 16; Pulse Ox 96% ; vc1 04:37 BP 119 / 60; Pulse 90; Resp 18; Pulse Ox 100% ; vc1 05:45 BP 110 / 59; Pulse 80; Resp 20; Pulse Ox 97% on BiPAP; FiO2 45 %; jw7 07:00 BP 107 / 57; Pulse 66; Resp 18; Temp 98; Pulse Ox 98% ; bp 02:50 Body Mass Index 23.04 (59.00 kg, 160.02 cm) jb4 02:50 Pain Scale: Adult jb4 02:50 Pt placed on 2L NC, advanced to 6L NC satting 89-91% placed on NRB at 15L jb4 Alejandra Coma Score: 05:51 Eye Response: spontaneous(4). Motor Response: obeys commands(6). Verbal Response: sp4 oriented(5). Total: 15. ED Course: 02:37 Patient arrived in ED. mr 02:41 Vanessa, VIVIENNE Bautista is Primary Nurse. jw7 02:50 Triage completed. jb4 02:50 Arm band placed on right wrist. jb4 02:50 Patient has correct armband on for positive identification. Bed in low position. Call jw7 light in reach. Side rails up X2. Provided Education on: Use of Call Light. 02:53 Kyle Low MD is Attending Physician. sp4 03:25 Inserted saline lock: 22 gauge in left antecubital area, using aseptic technique. Blood jw7 collected. 03:34 Initial lab(s) drawn, by me, sent to lab. EKG done, by ED staff, reviewed by Kyle Low MD. 03:53 XRAY Chest (1 view) In Process Unspecified. EDMS 04:32 [place] cath inserted, using sterile technique, 16 Fr., by special agent group insurance, balloon inflated, to jw7 gravity drainage, returned clear yellow urine. Patient tolerated well. 04:38 No provider procedures requiring assistance completed. vc1 05:54 Gurjit Bob MD is Hospitalizing Provider. sp4 07:14 Patient admitted, IV remains in place. bp Administered Medications: 03:33 Drug: Diazepam IVP 2 mg IVP once Route: IVP; Site: left antecubital; jw7 05:30 Follow up: Response: No adverse reaction; Marked relief of symptoms jw7 03:33 Drug: Ondansetron IVP 4 mg IVP once; over 2 minutes Route: IVP; Site: left antecubital; jw7 05:30 Follow up: Response: No adverse reaction jw7 04:37 Drug: Bumetanide IVP 1 mg IVP once Route: IVP; Site: left antecubital; jw7 07:14 Follow up: Response: No adverse reaction bp 06:50 Drug: Albumin IVPB 25 grams 100 ml IVPB once; (Note: Albumin 25% concentration) Volume: jw7 100 ml; Route: IVPB; Site: left forearm; 07:14 Follow up: IV Status: Completed infusion; IV Intake: 50ml bp 06:50 Drug: Aspirin PO Chewable Tablet 324 mg PO once; 81 mg tablets x 4 Route: PO; jw7 07:14 Follow up: Response: No adverse reaction bp 06:50 Drug: Enoxaparin Sub-Q 60 mg Sub-Q once Route: Sub-Q; Site: abdomen; jw7 07:14 Follow up: Response: No adverse reaction bp Medication: 04:38 VIS not applicable for this client. vc1 Intake: 07:14 IV: 50ml; Total: 50ml. bp Outcome: 05:55 Decision to Hospitalize by Provider. sp4 08:12 Condition: stable bp 08:12 Instructed on the need for admit, 08:36 Patient left the ED. bp Signatures: Dispatcher [employer] EDWI HillCathy cyr, Reg Reg mr GaloZach, RN RN jb4 Rogelio Menendez RN RN bp Gayatri Duncan RN RN vc1 Lily Mendez RN RN jw7 Kyle Low MD MD sp4
--- NOTE | 2023-05-04 05:55 | EDPHYS ---
Physician Documentation [facility] Name: Erika Jacobson Age: 88 yrs Sex: Female : 1935 Arrival Date: 05/04/2023 Time: 02:35 Bed 17 Private MD: ED Physician Kyle Low HPI: 05/03 02:53 This 88 yrs old Female presents to ER via Wheelchair with complaints of sp4 Breathing Difficulty. 05:48 88-year-old female with history of asthma, CHF, CVA, hyperlipidemia, hypertension sp4 presents with acute worsening shortness of breath associated with hypoxemia. Patient reported she has discomfort. 05:51 Breathing has gotten markedly worse 2 hours prior to arrival. sp4 06:30 . sp4 Historical: - Allergies: 02:50 No Known Allergies; jb4 - Home Meds: 02:50 aspirin 81 mg Oral chew 1 tab once daily [Active]; carvedilol 3.125 mg Oral tablet 0.5 jb4 tab 2 times per day [Active]; losartan 100 mg Oral tab 1 tab once daily [Active]; Lasix 40 mg Oral tablet 2 tabs morning and noon [Active]; atorvastatin 20 mg Oral tablet 1 tab every day at bedtime [Active]; - PMHx: 02:50 Asthma; Congestive heart failure; CVA; Hyperlipidemia; Hypertension; jb4 - PSHx: 02:50 choleycestectomy; hysterectomy; kidney stones; jb4 - Immunization history:: Adult Immunizations unknown. - Social history:: Smoking status: Patient denies any tobacco usage or history of. - Family history:: not pertinent. ROS: 05:48 Constitutional: Negative for fever, chills, and weight loss, positive dyspnea positive sp4 chest discomfort 05:51 All other systems are negative, sp4 Exam: 05:51 Constitutional: This is a well developed, well nourished patient who is awake, alert, sp4 and an acute moderate respiratory distress with hypoxemia Head/Face: Normocephalic, atraumatic. Eyes: Pupils equal round and reactive to light, extra-ocular motions intact. Lids and lashes normal. Conjunctiva and sclera are not injected. Cornea within normal limits. Periorbital areas with no swelling, redness, or edema. ENT: Nares patent. No nasal discharge, no septal abnormalities noted. Tympanic membranes are normal and external auditory canals are clear. Oropharynx with no redness, swelling, or masses, exudates, or evidence of obstruction, uvula midline. Mucous membranes moist. Neck: Trachea midline, no thyromegaly or masses palpated, and no cervical lymphadenopathy. Supple, full range of motion without nuchal rigidity, or vertebral point tenderness. Chest/axilla: Normal chest wall appearance and motion. Nontender with no deformity. No lesions are appreciated. Cardiovascular: Regular rate and rhythm with a normal S1 and S2. No gallops, murmurs, or rubs. Normal PMI, no JVD. No pulse deficits. Respiratory: Lungs have equal breath sounds bilaterally, throughout wheezing bilateral retractions, positive dyspnea and tachypnea Abdomen/GI: Soft, with normal bowel sounds. No distension or tympany. No guarding or rebound. No evidence of tenderness throughout. Back: No spinal tenderness. No costovertebral tenderness. Skin: Warm, dry with normal turgor. Normal color with no rashes, no lesions, and no evidence of cellulitis. MS/ Extremity: Pulses equal, no cyanosis. Neurovascular intact. Full, normal range of motion. Neuro: Awake and alert, GCS 15, oriented to person, place, time, and situation. Cranial nerves II-XII grossly intact. Motor strength 5/5 in all extremities. Sensory grossly intact. Psych: Awake, alert, with orientation to person, place and time. Behavior, mood, and affect are within normal limits 05:51 ECG was reviewed by the Attending Physician. 0 325 sinus rhythm with rate of 69, normal sinus rhythm left bundle branch block. Vital Signs: 02:50 BP 173 / 94; Pulse 124; Resp 24; Temp 97(TE); Pulse Ox 85% on R/A; Weight 59 kg (M); jb4 Height 5 ft. 3 in. ; Pain 0/10; 04:00 BP 99 / 46; Pulse 75; Resp 16; Pulse Ox 96% ; vc1 04:37 BP 119 / 60; Pulse 90; Resp 18; Pulse Ox 100% ; vc1 05:45 BP 110 / 59; Pulse 80; Resp 20; Pulse Ox 97% on BiPAP; FiO2 45 %; jw7 07:00 BP 107 / 57; Pulse 66; Resp 18; Temp 98; Pulse Ox 98% ; bp 02:50 Body Mass Index 23.04 (59.00 kg, 160.02 cm) jb4 02:50 Pain Scale: Adult jb4 02:50 Pt placed on 2L NC, advanced to 6L NC satting 89-91% placed on NRB at 15L jb4 [place] Coma Score: 05:51 Eye Response: spontaneous(4). Motor Response: obeys commands(6). Verbal Response: sp4 oriented(5). Total: 15. MDM: 02:54 Patient medically screened. sp4 04:44 ED course: PROCEDURE: XR Chest, 1 View CLINICAL INDICATION: The patient is 88 years old sp4 and is Female; SOB Bed Name: 17 TECHNIQUE: Frontal view of the chest. COMPARISON: 04/13/2023 and 08/28/2022 chest radiograph, 03/16/2023 CTA chest FINDINGS: LUNGS: Chronic appearing bilateral interstitial lung markings with no discrete focal consolidation. PLEURAL SPACE: Redemonstrated blunting of the bilateral costophrenic angles, secondary to scarring or trace pleural effusions. Unchanged. MEDIASTINUM: Stable prominence of the cardiomediastinal silhouette. BONES/JOINTS: No acute osseous abnormality. VASCULATURE: Calcified atherosclerosis of the thoracic aorta. IMPRESSION: Chronic appearing bilateral interstitial lung markings with no discrete focal consolidation. Findings favor diffuse interstitial pulmonary edema and trace bilateral effusions given prior imaging findings.. 05:53 Differential diagnosis: Anxiety Reaction asthma, Bronchitis CHF exacerbation, Chronic sp4 Obstructive Pulmonary Disease pneumonia. Data reviewed: vital signs, nurses notes, old medical records, lab test result(s), EKG, radiologic studies, plain films. ED course: 88-year-old female presents with acute worsening dyspnea associated with CHF exacerbation. Patient warrants admission for CHF management. Troponin slightly elevated . . 06:35 ED course: Patient's medical history includes CHF hypertension left bundle branch block sp4 non-STEMI hyperlipidemia. She was managed in the hospital 04/13/2023 through 04/14/2023. For CHF exacerbation, hypokalemia, and hypotension.. 05/03 02:46 Order name: Basic Metabolic Panel; Complete Time: 05:17 vc1 05/03 02:46 Order name: CBC with Diff; Complete Time: 05:17 vc1 05/03 02:46 Order name: Magnesium; Complete Time: 05:17 vc1 05/03 02:46 Order name: Troponin HS; Complete Time: 05:17 vc1 05/03 02:48 Order name: ABG; Complete Time: 05:17 jb4 05/03 02:54 Order name: BNP; Complete Time: 05:17 sp4 05/03 02:54 Order name: LFT's; Complete Time: 05:17 sp4 05/03 02:54 Order name: CRP; Complete Time: 05:17 sp4 05/03 06:27 Order name: Troponin High Sensitivity EDMS 05/03 02:46 Order name: XRAY Chest (1 view) vc1 05/03 02:46 Order name: BIPAP vc1 05/03 06:27 Order name: Echo with Doppler EDMS 05/03 02:46 Order name: EKG; Complete Time: 02:47 vc1 05/03 02:46 Order name: Cardiac monitoring; Complete Time: 03:55 vc1 05/03 02:46 Order name: EKG - Nurse/Tech; Complete Time: 03:55 vc1 05/03 02:46 Order name: IV Saline Lock; Complete Time: 03:33 vc1 05/03 02:46 Order name: Labs collected and sent; Complete Time: 03:33 vc1 05/03 02:46 Order name: O2 Per Protocol; Complete Time: 02:58 vc1 05/03 02:46 Order name: O2 Sat Monitoring; Complete Time: 02:58 vc1 05/03 03:15 Order name: [place]; Complete Time: 04:32 sp4 EC:51 Rate is 69 beats/min. Rhythm is regular, Sinus Rhythm. QRS [place] is Normal. RI interval sp4 is normal. QRS interval is prolonged. QT interval is normal. No Q waves. T waves are Normal. No ST changes noted. Clinical impression: No evidence of ischemia. Interpreted by me. Administered Medications: 03:33 Drug: Diazepam IVP 2 mg IVP once Route: IVP; Site: left antecubital; jw7 05:30 Follow up: Response: No adverse reaction; Marked relief of symptoms jw7 03:33 Drug: Ondansetron IVP 4 mg IVP once; over 2 minutes Route: IVP; Site: left antecubital; jw7 05:30 Follow up: Response: No adverse reaction jw7 04:37 Drug: Bumetanide IVP 1 mg IVP once Route: IVP; Site: left antecubital; jw7 07:14 Follow up: Response: No adverse reaction bp 06:50 Drug: Albumin IVPB 25 grams 100 ml IVPB once; (Note: Albumin 25% concentration) Volume: jw7 100 ml; Route: IVPB; Site: left forearm; 07:14 Follow up: IV Status: Completed infusion; IV Intake: 50ml bp 06:50 Drug: Aspirin PO Chewable Tablet 324 mg PO once; 81 mg tablets x 4 Route: PO; jw7 07:14 Follow up: Response: No adverse reaction bp 06:50 Drug: Enoxaparin Sub-Q 60 mg Sub-Q once Route: Sub-Q; Site: abdomen; jw7 07:14 Follow up: Response: No adverse reaction bp Disposition Summary: 05/04/23 05:55 Hospitalization Ordered Notes: Hospitalization Status: Inpatient Admission sp4 Provider: Gurjit Bob sp4 Location: Telemetry/MedSur (Inpatient) sp4 Condition: Fair sp4 Problem: new sp4 Symptoms: have improved sp4 Bed/Room Type: Standard sp4 Room Assignment: 411(05/04/23 08:36) bp Diagnosis - Chronic combined systolic (congestive) and diastolic (congestive) heart failure sp4 - Hypoxemia sp4 Forms: - Medication Reconciliation Form sp4 - SBAR form sp4 - Leadership Thank You Letter sp4 Signatures: Dispatcher [employer] Zach Simms RN RN jb4 Rogelio Menendez RN RN bp Gayatri Duncan RN RN vc1 Lily Mendez RN RN jw7 Kyle Low MD MD sp4 Corrections: (The following items were deleted from the chart) 06:53 05:55 sp4 vc1 08:36 06:53 429 vc1 bp
[2023-05-04] MEDS ORDERED: ALBUMIN HUMAN 25% 100 ML IV ONE (06:19)
[2023-05-04] MEDS ORDERED: ENOXAPARIN 60 MG/0.6 ML SQ ONE (06:19)
[2023-05-04] MEDS ORDERED: ASPIRIN 81 MG CHEWABLE TABLET ONE (06:19)
[2023-05-04] MEDS: FUROSEMIDE 20 MG/ 2ML VIAL IV SCH (07:00)
--- NOTE | 2023-05-04 07:09 | P.HP ---
Certification for Inpatient Patient admitted to: Observation <Kalyani Sams - Last Filed: 05/04/23 14:11> Patient History Date of Service: 05/04/23 Reason for admission: Shortness of breath History of Present Illness: 88-year-old female with a past medical history of CHF, CVA, hypertension, hyperlipidemia, presents to the emergency room with shortness of breath. She reports shortness of breath worse this morning. It started 2 hours prior to arrival. She reports history of a recent PCI 1 week ago. [facility]. His son is at bedside is primary historian. Reports shortness of breath is worse with exertion, reports chest tightness. Reports taking Plavix, medication compliance, no reported fever, nausea vomiting diarrhea edema dizziness. Plan to admit for acute on chronic heart failure, hypoxia. Patient treated with Lovenox 1 mg/kg, EKG s 69 beats/min. Rhythm is regular, Sinus Rhythm. QRS [place] is Normal. [place] interval is normal. QRS interval is prolonged. QT interval is normal. No Q waves. T waves are Normal. No ST changes noted. Clinical impression: No evidence of ischemia. Vital signs BP 173 / 94; Pulse 124; Resp 24; Temp 97(TE); Pulse Ox 85% on R/A; Weight 59 kg (M); Height 5 ft. 3 in. ; Pain 0/10. Elevated troponin 77, 223, microcytic anemia 10.8 32.9 early left shift 78 point, cardiology consulted - Past Medical/Surgical History Diabetic: No -: Hypertension -: Dyslipidemia -: CVA -: kidney stones -: Asthma -: Systolic heart failure -: Prediabetes -: Cholecystectomy Psychosocial/ Personal History: Patient lives at home with her children. - Social History Alcohol use: No CD- Drugs: No Caffeine use: No <Kalyani Sams - Last Filed: 05/04/23 14:11> Date of Service: 05/04/23 <pamela gupta - Last Filed: 05/04/23 15:20> Allergies No Known Allergies Allergy (Verified 09/03/18 08:32) Home Medications: Aspirin Chewable [Aspirin Chewable*] 81 mg PO DAILY 02/15/22 Atorvastatin Calcium [Lipitor*] 20 mg PO BEDTIME 02/15/22 Ipratropium/Albuterol Sulfate [Iprat-Albut 0.5-3(2.5) mg/3 ml] 3 ml IH BEDTIME 01/06/23 Bumetanide See Rx Instructions .ROUTE .COMPLEX 03/16/23 Spironolactone [Aldactone] 25 mg PO DAILY #30 tab 04/14/23 Clopidogrel Bisulfate [Plavix] 75 mg PO DAILY 05/04/23 Review of Systems per HPI <Kalyani Sams - Last Filed: 05/04/23 14:11> Physical Examination - Vital Signs Pulse Ox (%): 98 - Physical Exam General: Alert, In no apparent distress, Oriented x3 HEENT: Atraumatic, Normocephalic Neck: Supple, JVD not distended Respiratory: Diminished, Crackles/rales Cardiovascular: Normal pulses, Regular rate/rhythm Gastrointestinal: Normal bowel sounds, Soft and benign Musculoskeletal: No clubbing, No swelling Integumentary: No significant lesion, No tenderness/swelling Neurological: Normal speech, Normal strength at 5/5 x4 extr - Studies Laboratory Data (last 24 hrs) 05/04/23 05/04/23 05/04/23 03:25 03:25 03:25 WBC 8.40 Hgb 10.9 L Hct 32.9 L Plt Count 345 Sodium 136 Potassium 3.2 L BUN 17 Creatinine 0.85 Glucose 259 H Magnesium 2.0 Total Bilirubin 0.9 AST 20 ALT 16 Alkaline Phosphatase 115 <Kalyani Sams - Last Filed: 05/04/23 14:11> - Studies Laboratory Data (last 24 hrs) 05/04/23 05/04/23 05/04/23 03:25 03:25 03:25 WBC 8.40 Hgb 10.9 L Hct 32.9 L Plt Count 345 Sodium 136 Potassium 3.2 L BUN 17 Creatinine 0.85 Glucose 259 H Magnesium 2.0 Total Bilirubin 0.9 AST 20 ALT 16 Alkaline Phosphatase 115 <pamela gupta - Last Filed: 05/04/23 15:20> Assessment and Plan - Plan Assessment plan Acute on chronic heart failure NSTEMI Recent PCI on Plavix Elevated BNP Cardiology consult, telemetry Trend troponin 71, 232.8 BNP 4347 Patient treated with Lovenox 1 mg/kg, EKG 69 beats/min. Rhythm is regular, Sinus Rhythm. QRS [place] is Normal. [place] interval is normal. QRS interval is prolonged. QT interval is normal. No Q waves. T waves are Normal. No ST changes noted. Clinical impression: No evidence of ischemia. Vital signs BP 173 / 94; Pulse 124; Resp 24; Temp 97(TE); Pulse Ox 85% on R/A; Weight 59 kg (M); Height 5 ft. 3 in. ; Pain 0/10. Elevated troponin 77, 223, She reports shortness of breath worse this morning. It started 2 hours prior to arrival. She reports history of a recent PCI 1 week ago. [facility]. His son is at bedside is primary historian History CVA hypertension hyperlipidemia Resume appropriate home meds microcytic anemia H&H 10.8 32.9 early left shift 78 point Kfk-[id number]-[id number] diabetes Accu-Cheks, sliding scale and Full code DVT Lovenox 1 mg/kg Diet n.p.o. Disposition Home Home with son Discharge Plan: Home - Advance Directives Does patient have a Living Will: No Does patient have a Durable POA for Healthcare: No Critical Care: No Time Spent Managing Pts Care (In Minutes): 55 <Kalyani Sams - Last Filed: 05/04/23 14:11> - Plan Patient seen and examined. Patient reports improvement in shortness of breath. She is borderline hypotensive and maintaining 3 L of oxygen by nasal cannula. Cardiology input appreciated. IV Bumex, monitor intake and output Wean oxygen as tolerated. Resume other home medications. <pamela gupta - Last Filed: 05/04/23 15:20>
[2023-05-04] MEDS ORDERED: ACETAMINOPHEN 500 MG TAB PO PRN (07:11)
[2023-05-04] MEDS: FUROSEMIDE 40 MG/4 ML VIAL IV SCH (09:32)
[2023-05-04] MEDS: ENOXAPARIN 40 MG/0.4 ML SQ SCH (09:32)
[2023-05-04] MEDS: ASPIRIN EC 81 MG TAB PO SCH (09:33)
--- NOTE | 2023-05-04 10:22 | RAD REPORT ---
EXAM DESCRIPTION: RAD - Chest Single View - 05/04/2023 3:52 am CLINICAL HISTORY: The patient is 88 years old and is Female; SOB Bed Name: 17 TECHNIQUE: Frontal view of the chest. COMPARISON: 04/13/2023 and 08/28/2022 chest radiograph, 03/16/2023 CTA chest FINDINGS: LUNGS: Chronic appearing bilateral interstitial lung markings with no discrete focal con solidation. PLEURAL SPACE: Redemonstrated blunting of the bilateral costophrenic angles, secondary to scarring or trace pleural effusions. Unchanged. MEDIASTINUM: Stable prominence of the cardiomediastinal silhouette. BONES/JOINTS: No acute osseous abnormality. VASCULATURE: Calcified atherosclerosis of the thoracic aorta. IMPRESSION: Chronic appearing bilateral interstitial lung markings with no discrete focal consolidat ion. Findings favor diffuse interstitial pulmonary edema and trace bilateral effusions given prior im aging findings. Electronically signed by: Ozzy Torres MD 05/04/2023 04:20 AM CDT Due to temporary technical issues with the PACS/Fluency reporting system, reports are being signed by the in house radiologists without review as a courtesy to insure prompt reporting. The interpreting radiologist is fully responsible for the content of the report.
--- NOTE | 2023-05-04 11:49 | P.CNS ---
Date of Consult: 05/04/23 Chief Complaint: shortness of breath History of Present Illness: [place] with PMH of CAD recent PCI in 04/2022, chronic combined heart failure presented with worsening SOB, denies any chest pain, no palpitations, no sycnope. Allergies No Known Allergies Allergy (Verified 09/03/18 08:32) Home Medications: Aspirin Chewable [Aspirin Chewable*] 81 mg PO DAILY 02/15/22 Atorvastatin Calcium [Lipitor*] 20 mg PO BEDTIME 02/15/22 Ipratropium/Albuterol Sulfate [Iprat-Albut 0.5-3(2.5) mg/3 ml] 3 ml IH BEDTIME 01/06/23 Bumetanide See Rx Instructions .ROUTE .COMPLEX 03/16/23 Spironolactone [Aldactone] 25 mg PO DAILY #30 tab 04/14/23 Clopidogrel Bisulfate [Plavix] 75 mg PO DAILY 05/04/23 - Past Medical/Surgical History Diabetic: No -: Hypertension -: Dyslipidemia -: CVA -: kidney stones -: Asthma -: Systolic heart failure -: Prediabetes -: Cholecystectomy Psychosocial/ Personal History: Patient lives at home with her children. - Social History Smoking Status: Unknown if ever smoked Alcohol use: No CD- Drugs: No Caffeine use: No Place of Residence: Home Review of Systems 10-point ROS is otherwise unremarkable Physical Examination Temp Pulse Resp BP Pulse Ox 97.7 F 74 18 102/57 L 99 05/04/23 09:10 05/04/23 09:10 05/04/23 09:10 05/04/23 09:10 05/04/23 09:10 General: Alert, Oriented x3 HEENT: Atraumatic Neck: Supple Respiratory: Crackles/rales Cardiovascular: No edema, Normal S1 S2 Gastrointestinal: Normal bowel sounds Laboratory Data (last 24 hrs) 05/04/23 05/04/23 05/04/23 03:25 03:25 03:25 WBC 8.40 Hgb 10.9 L Hct 32.9 L Plt Count 345 Sodium 136 Potassium 3.2 L BUN 17 Creatinine 0.85 Glucose 259 H Magnesium 2.0 Total Bilirubin 0.9 AST 20 ALT 16 Alkaline Phosphatase 115 - Problems (1) Acute on chronic combined systolic and diastolic heart failure Current Visit: Yes Status: Acute Plan: Patient used to be on Bumex 2 mg daily at home Please switch lasix to Bumex 2mg IV BID monitor input and out put and correct electrolytes. (2) CAD (coronary artery disease) Current Visit: Yes Status: Acute Plan: patient with recent stent placement. Continue ASA 81 mg daily Continue Plavix 75 mg daily Lipitor 40 mg daily (3) Dyslipidemia Current Visit: No Status: Chronic Plan: Lipitor 40 mg daily, lipid panel. (4) Hypertension Current Visit: No Status: Chronic Plan: start patient on Coreg 3.125 mg po BID Qualifiers: Hypertension type: primary hypertension Qualified Code(s): I10 - Essential (primary) hypertension
[2023-05-04] MEDS: PNEUMOCOCCAL VACCINE 0.5 ML IMVAC ONE (11:55)
[2023-05-04] MEDS: IPRATROPIUM BROM 0.5MG/2.5ML NEB SCH (13:00)
--- NOTE | 2023-05-04 14:23 | EKG ---
Test Date: 2023-05-04 Test Time: 03:25:18 Management Information Systems Director: JERRI MEASUREMENT RESULTS: Intervals: Rate: 69 WV: 162 QRSD: 162 QT: 478 QTc: 512 [place]: P: 63 WV: 162 QRS: -19 T: 150 INTERPRETIVE STATEMENTS: Normal sinus rhythm Left bundle branch block Abnormal ECG Compared to ECG 04/13/2023 17:55:35 Left-axis deviation no longer present Electronically Signed On 05-04-23 14:22:45 CDT by Preston Tubbs
[2023-05-04] MEDS: carvediloL 3.125 MG TAB PO SCH (14:30)
[2023-05-04] MEDS: CLOPIDOGREL 75 MG TABLET PO SCH (14:40)
[2023-05-04] MEDS: BUMETANIDE 2.5 MG/10 ML VIAL IV SCH (21:00)
[2023-05-04] MEDS: ATORVASTATIN 40 MG TAB PO SCH (21:20)
[2023-05-04 21:51] LABS: Specific Gravity 1.023 (1.005-1.030); Sqamous Epithelial <5 /HPF (None Seen); Urine Bacteria <20 /HPF (<20); Urine Bilirubin NEGATIVE (Negative); Urine Blood 2+ (Negative); Urine Clarity Extremely Turbid (Clear); Urine Color Yellow (Yellow); Urine Crystals Unidentified Few /HPF (None Seen); Urine Culture Reflex Order REFLEXED; Urine Glucose NEGATIVE (Negative); Urine Ketones NEGATIVE (Negative); Urine Microscopic Reflex YN ORDER UMIC; Urine Mucus 1+ /HPF (None Seen); Urine Nitrite NEGATIVE (Negative); Urine Protein TRACE (Negative); Urine RBC 21-50 /HPF (None Seen); Urine Urobilinogen Normal (Normal); Urine WBC 20-50 /HPF (<5); Urine Yeast (Budding) Trace /HPF (None Seen)
[2023-05-05 07:58] LABS: Absolute Eosinophils 0.2 K/uL (0-0.5); Absolute Lymphocytes (CBC) 1.6 K/uL (0.7-4.9); Absolute Monocytes 0.4 K/uL (0.1-1.3); Absolute Neutrophil 5.1 K/uL (1.8-8.0); Basophils % 0.3 % (0-1.3); Eosinophils % 2.9 % (0-4.4); Hematocrit 29.9 % (36.0-45.0); Hemoglobin 9.9 g/dL (12.0-15.0); Lymphocytes % 21.5 % (15.3-44.8); MCH 25.9 pg (27.0-35.0); MCHC 33.2 g/dL (32.0-36.0); MPV 8.4 fL (7.6-11.3); Monocytes % 5.4 % (3.3-12.3); Neutrophils % 69.9 % (41.7-73.7); Nucleated Red Blood Cells % 0.2 % (0-0); Platelets 311 thou/uL (152-406); RBC Red Blood Cell Count 3.84 M/uL (3.86-4.86); Red Cell Distribution Width 15.8 % (12.1-15.2)
[2023-05-05 08:17] LABS: Anion Gap 8.8 mEq/L (5.0-15.0); Magnesium 2.3 mg/dL (1.6-2.4); Phosphorus 3.7 mg/dL (2.5-4.9); Potassium 3.8 mEq/L (3.5-5.1)
[2023-05-05] MEDS: SPIRONOLACTONE 25 MG TABLET PO SCH (08:50)
--- NOTE | 2023-05-05 14:17 | ECHO ---
HEIGHT: 5 ft 3 in WEIGHT: 130 lb 1.6 oz DATE OF STUDY: 05/05/[address]: Gurjit Bob MD 2-DIMENSIONAL: YES M.MODE: YES DOPPLER: YES COLOR FLOW: YES TDS: YES PORTABLE: YES DEFINITY: BUBBLE STUDY: DIAGNOSIS: CONGESTIVE HEART FAILURE CARDIAC HISTORY: CATHERIZATION: YES SURGERY: NO PROSTHETIC VALVE: NO PACEMAKER: NO MEASUREMENTS (cm) DIASTOLIC (NORMALS) SYSTOLIC (NORMALS) IVSd 0.9 (0.6-1.2) LA Diam 2.5 (1.9-4.0) LVEF 34% LVIDd 4.9 (3.5-5.7) LVIDs 4.1 (2.0-3.5) %FS 16% LVPWd 1.1 (0.6-1.2) Ao Diam 2.3 (2.0-3.7) 2 DIMENSIONAL ASSESSMENT: RIGHT ATRIUM: NORMAL LEFT ATRIUM: NORMAL RIGHT VENTRICLE: NORMAL LEFT VENTRICLE: DILATED TRICUSPID VALVE: NORMAL MITRAL VALVE: SEVERE MITRAL ANNULAR CALCIFICATION, MITRAL ANNULAR CALCIFICATION PULMONIC VALVE: NORMAL AORTIC VALVE: NORMAL PERICARDIAL EFFUSION: NONE AORTIC ROOT: NORMAL LEFT VENTRICULAR WALL MOTION: SEVERE GLAOBAL HYPOKINESIS DOPPLER/COLOR FLOW: GRADE II DIASTOLIC DYSFUNCTION COMMENTS: 1. SEVERE REDUCED LEFT VENTRICULAR SYSTOLIC FUNCTION, EJECTION FRACTION 20-25%, SEVERE GLOBAL HYPOKINESIS 2. GRADE II DIASTOLIC DYSFUNCTION 3. SEVERE MITRAL ANNULAR CALCIFICATION, MILD MITRAL REGURGITATION TECHNOLOGIST: VIDHI CHRISTENSEN
--- NOTE | 2023-05-05 14:31 | P.PN ---
Subjective Date of Service: 05/05/23 Chief Complaint: Shortness of breath Subjective: No new changes Review of Systems 10-point ROS is otherwise unremarkable Physical Examination - Vital Signs Temperature: 97.7 F Blood Pressure: 115/55 Pulse: 85 Respirations: 17 Pulse Ox (%): 97 - Physical Exam General: Alert, Oriented x3 HEENT: Atraumatic Neck: Supple Respiratory: Crackles/rales Cardiovascular: Normal S1 S2, Edema Gastrointestinal: Normal bowel sounds Assessment And Plan - Current Problems (Diagnosis) (1) Acute on chronic combined systolic and diastolic heart failure Current Visit: Yes Status: Acute Plan: Patient used to be on Bumex 2 mg daily at home continue Bumex 2mg IV BID monitor input and out put and correct electrolytes. (2) CAD (coronary artery disease) Current Visit: Yes Status: Acute Plan: patient with recent stent placement. Continue ASA 81 mg daily Continue Plavix 75 mg daily Lipitor 40 mg daily (3) Dyslipidemia Current Visit: No Status: Chronic Plan: Lipitor 40 mg daily, lipid panel. (4) Hypertension Current Visit: No Status: Chronic Plan: continue Coreg 3.125 mg po BID Spironlactone 12.5 mg daily Qualifiers: Hypertension type: primary hypertension Qualified Code(s): I10 - Essential (primary) hypertension
--- NOTE | 2023-05-05 16:28 | P.PN ---
Subjective Date of Service: 05/05/23 Patient remains slightly tachypneic at bedside. Patient gets short of breath just from the slightest movement. She has been on IV Bumex for the last couple of days. Patient's strict I's and O's. Echocardiogram with an ejection fraction of 20 to 25%. Patient will need continued diuresing. Review of Systems 10-point ROS is otherwise unremarkable Physical Examination - Vital Signs Temperature: 97.7 F Blood Pressure: 115/55 Pulse: 85 Respirations: 17 Pulse Ox (%): 97 - Physical Exam General: Alert, In no apparent distress, Oriented x3 HEENT: Atraumatic, PERRLA, EOMI Neck: Supple, JVD distended Respiratory: Crackles/rales Cardiovascular: Regular rate/rhythm, Normal S1 S2 Gastrointestinal: Normal bowel sounds, Soft and benign, Non-distended, No tenderness Musculoskeletal: No clubbing, No tenderness, Swelling Neurological: Sensation intact, Cranial nerves 3-12 intact - Studies Medications List Reviewed: Yes Assessment & Plan - Problems (Diagnosis) (1) Acute on chronic combined systolic and diastolic heart failure Current Visit: Yes Status: Acute (2) CAD (coronary artery disease) Current Visit: Yes Status: Acute (3) CVA (cerebral vascular accident) Onset Date: 12/27/17 Current Visit: No Status: Acute Qualifiers: (4) Malignant hypertension Current Visit: No Status: Acute (5) NSTEMI (non-ST elevated myocardial infarction) Current Visit: No Status: Acute (6) Pulmonary edema Current Visit: No Status: Acute (7) Dyslipidemia Current Visit: No Status: Chronic (8) Hypertension Current Visit: No Status: Chronic Qualifiers: Hypertension type: primary hypertension Qualified Code(s): I10 - Essential (primary) hypertension (9) LBBB (left bundle branch block) Current Visit: No Status: Chronic - Plan Plan: 1. Patient with acute on chronic congestive heart failure; patient with combined systolic and diastolic heart failure. Echocardiogram performed with an ejection fraction of 25%. Bumex IV continued. Patient still needs aggressive diuresing. Patient's respiratory status has not improved much. Patient still gets short of breath while laying in bed. Will continue with getting some fluid off of her and hopefully over the next 24 hours she will be stable to discharge. At this time we will go ahead and change her to inpatient hospitalization 2. History of coronary artery disease; continue with cardiac meds 3. Patient with history of hypothyroidism; continue with Synthroid 4. Continue home medications as mentioned and will continue monitoring patient's volume status while hospitalized. Continue on telemetry. Patient's long-term prognosis remains poor. Her son is at bedside and he has been caring for her quite a while. He gets really upset when he does not get questions answered at bedside. He also gets worked up when his mother starts getting short of breath. Will try to communicate with him as effectively as possible I will leave him on information to contact me if he has any questions. Discharge Plan: Home Plan to discharge in: Greater than 2 days - Advance Directives Does patient have a Living Will: No Does patient have a Durable POA for Healthcare: No - Code Status/Comfort Care Code Status Assessed: Yes Code Status: Full Code Critical Care: No Time Spent Managing PTS Care (In Minutes): 45
[2023-05-06 08:12] LABS: Absolute Basophils 0.1 K/uL (0-0.5); Absolute Eosinophils 0.3 K/uL (0-0.5); Absolute Lymphocytes (CBC) 1.4 K/uL (0.7-4.9); Absolute Monocytes 0.4 K/uL (0.1-1.3); Absolute Neutrophil 8.2 K/uL (1.8-8.0); Basophils % 0.5 % (0-1.3); Eosinophils % 2.5 % (0-4.4); Hematocrit 30.1 % (36.0-45.0); Hemoglobin 9.8 g/dL (12.0-15.0); Lymphocytes % 13.1 % (15.3-44.8); MCH 25.5 pg (27.0-35.0); MCHC 32.4 g/dL (32.0-36.0); MCV 78.8 fL (80-100); MPV 8.6 fL (7.6-11.3); Neutrophils % 79.9 % (41.7-73.7); Nucleated Red Blood Cells % 0.1 % (0-0); Platelets 260 thou/uL (152-406); RBC Red Blood Cell Count 3.82 M/uL (3.86-4.86); Red Cell Distribution Width 15.5 % (12.1-15.2)
[2023-05-06 08:28] LABS: Anion Gap 9.5 mEq/L (5.0-15.0); Magnesium 2.2 mg/dL (1.6-2.4); Potassium 3.5 mEq/L (3.5-5.1)
[2023-05-06 08:39] LABS: Anisocytosis 1+; Blood Morphology Comment NOTED (NOT SEEN); Microcytosis 1+; Platelet Estimate ADEQ; White Blood Cell Scan OK (OK)
[2023-05-06] MEDS: METHYLPREDNISOLONE 125 MG INJ IV ONE (11:31)
[2023-05-06] MEDS: ALBUMIN HUMAN 25% 100 ML IV ONE (11:32)
[2023-05-06] MEDS: MIDODRINE HCL 5 MG TABLET PO SCH (14:26)
[2023-05-06] MEDS: DOCUSATE NA 100 MG CAP PO SCH (21:00)
[2023-05-06] MEDS: BUMETANIDE 1 MG/4 ML VIAL IV SCH (21:00)
[2023-05-06] MEDS ORDERED: BUMETANIDE 2.5 MG/10 ML VIAL IV SCH (21:00)
[2023-05-06] MEDS: METHYLPREDNISOLONE 125 MG INJ IV SCH (21:01)
--- NOTE | 2023-05-07 09:04 | RAD REPORT ---
EXAM DESCRIPTION: CT - Thorax W/ Con CLINICAL HISTORY: Chest pain Dyspnea COMPARISON: Chest For Pe Angio dated 03/16/2023 FINDINGS: Mild interstitial pulmonary edema. Moderate opacities in both lung bases may represent ate lectasis or infiltrate/pneumonia. Small bilateral pleural effusions No pneumothorax. No axillary, mediastinal or hilar adenopathy. No concerning bony finding. No gross upper abdominal finding. All CT scans are performed using dose optimization technique as appropriate and may include automated exposure control or mA/KV adjustment according to patient size. IMPRESSION: Mild interstitial pulmonary edema likely present. Moderate consolidation both lung bases may represent atelectasis, infiltrate or a combination thereof . Small bilateral pleural effusions.
[2023-05-07 09:29] LABS: Absolute Lymphocytes (CBC) 0.9 K/uL (0.7-4.9); Absolute Monocytes 0.1 K/uL (0.1-1.3); Absolute Neutrophil 9.5 K/uL (1.8-8.0); Hematocrit 29.8 % (36.0-45.0); Hemoglobin 10.1 g/dL (12.0-15.0); Lymphocytes % 8.2 % (15.3-44.8); MCH 26.2 pg (27.0-35.0); MCHC 33.9 g/dL (32.0-36.0); MCV 77.3 fL (80-100); MPV 8.2 fL (7.6-11.3); Neutrophils % 90.8 % (41.7-73.7); Nucleated Red Blood Cells % 0.1 % (0-0); Platelets 340 thou/uL (152-406); RBC Red Blood Cell Count 3.85 M/uL (3.86-4.86); Red Cell Distribution Width 15.4 % (12.1-15.2)
[2023-05-07 09:47] LABS: Anion Gap 9.4 mEq/L (5.0-15.0); Magnesium 2.2 mg/dL (1.6-2.4); Potassium 3.4 mEq/L (3.5-5.1)
[2023-05-07] MEDS: POTASSIUM CL SA 10 MEQ TAB PO ONE (11:26)
[2023-05-07] MEDS: ONDANSETRON 4 MG/2 ML VIAL IV PRN (12:31)
--- NOTE | 2023-05-07 14:41 | P.PN ---
Subjective Date of Service: 05/06/23 Patient is doing much better. Her respiratory status has improved. Will continue to get patient out of bed with physical therapy. Will get CT scan as well. Anticipate discharge over the next 48 hours Review of Systems 10-point ROS is otherwise unremarkable Physical Examination - Vital Signs Temperature: 98 F Blood Pressure: 131/63 Pulse: 73 Respirations: 17 Pulse Ox (%): 98 - Physical Exam General: Alert, In no apparent distress, Oriented x3 HEENT: Atraumatic, PERRLA, EOMI Neck: Supple, JVD not distended Respiratory: Diminished, Crackles/rales Cardiovascular: Regular rate/rhythm, Normal S1 S2 Gastrointestinal: Normal bowel sounds, No tenderness Musculoskeletal: No tenderness Integumentary: No rashes Neurological: Normal speech, Normal tone, Normal affect Lymphatics: No axilla or inguinal lymphadenopathy - Studies Microbiology Data (last 24 hrs): 05/04/23 09:28 Clean Catch Urine [place] Count - Final <10,000 CFU/ML. 05/04/23 09:28 Clean Catch Urine - Final MIXED ARNEL. Medications List Reviewed: Yes Assessment & Plan - Problems (Diagnosis) (1) Acute on chronic combined systolic and diastolic heart failure Current Visit: Yes Status: Acute (2) CAD (coronary artery disease) Current Visit: Yes Status: Acute (3) CVA (cerebral vascular accident) Onset Date: 12/27/17 Current Visit: No Status: Acute Qualifiers: (4) Malignant hypertension Current Visit: No Status: Acute (5) NSTEMI (non-ST elevated myocardial infarction) Current Visit: No Status: Acute (6) Pulmonary edema Current Visit: No Status: Acute (7) Dyslipidemia Current Visit: No Status: Chronic (8) Hypertension Current Visit: No Status: Chronic Qualifiers: Hypertension type: primary hypertension Qualified Code(s): I10 - Essential (primary) hypertension (9) LBBB (left bundle branch block) Current Visit: No Status: Chronic - Plan Plan: Continue plan of care as mentioned below: 1. Patient with acute on chronic congestive heart failure; patient with combined systolic and diastolic heart failure. Echocardiogram performed with an ejection fraction of 25%. Bumex IV continued. Patient still needs aggressive diuresing. Patient's respiratory status has not improved much. Patient still gets short of breath while laying in bed. Will continue with getting some fluid off of her and hopefully over the next 24 hours she will be stable to discharge. At this time we will go ahead and change her to inpatient hospitalization 2. History of coronary artery disease; continue with cardiac meds 3. Patient with history of hypothyroidism; continue with Synthroid 4. Continue home medications as mentioned and will continue monitoring patient's volume status while hospitalized. Continue on telemetry. Patient's long-term prognosis remains poor. Her son is at bedside and he has been caring for her quite a while. He gets really upset when he does not get questions answered at bedside. He also gets worked up when his mother starts getting shor t of breath. Will try to communicate with him as effectively as possible I will leave him on information to contact me if he has any questions. *Anticipate discharge over the next 48 hours if patient continues to improve. - Advance Directives Does patient have a Living Will: No Does patient have a Durable POA for Healthcare: No - Code Status/Comfort Care Code Status: Full Code
--- NOTE | 2023-05-08 04:36 | P.PN ---
Subjective Date of Service: 05/07/23 Patient is clinically doing much better. She states that her respiratory status is much improved. Patient's daughter is at bedside. Will go ahead and ambulated with physical therapy and then anticipate discharge home in the morning. Review of Systems 10-point ROS is otherwise unremarkable Physical Examination - Vital Signs Temperature: 97.0 F Blood Pressure: 127/60 Pulse: 70 Respirations: 17 Pulse Ox (%): 98 - Physical Exam General: Alert, In no apparent distress, Oriented x3 Respiratory: Clear to auscultation bilaterally, Normal air movement Cardiovascular: Regular rate/rhythm, Normal S1 S2, No murmurs Gastrointestinal: Normal bowel sounds, Soft and benign, Non-distended, No tenderness Musculoskeletal: No clubbing, No swelling, No tenderness Neurological: Sensation intact, Cranial nerves 3-12 intact - Studies Microbiology Data (last 24 hrs): 05/04/23 09:28 Clean Catch Urine [place] Count - Final <10,000 CFU/ML. 05/04/23 09:28 Clean Catch Urine - Final MIXED ARNEL. Medications List Reviewed: Yes Assessment & Plan - Problems (Diagnosis) (1) Acute on chronic combined systolic and diastolic heart failure Current Visit: Yes Status: Acute (2) CAD (coronary artery disease) Current Visit: Yes Status: Acute (3) CVA (cerebral vascular accident) Onset Date: 12/27/17 Current Visit: No Status: Acute Qualifiers: (4) Malignant hypertension Current Visit: No Status: Acute (5) NSTEMI (non-ST elevated myocardial infarction) Current Visit: No Status: Acute (6) Pulmonary edema Current Visit: No Status: Acute (7) Dyslipidemia Current Visit: No Status: Chronic (8) Hypertension Current Visit: No Status: Chronic Qualifiers: Hypertension type: primary hypertension Qualified Code(s): I10 - Essential (primary) hypertension (9) LBBB (left bundle branch block) Current Visit: No Status: Chronic - Plan Plan: Continue plan of care as mentioned below: 1. Patient with acute on chronic congestive heart failure; patient with combined systolic and diastolic heart failure. Echocardiogram performed with an ejection fraction of 25%. Bumex IV continued. Patient still needs aggressive diuresing. Patient's respiratory status has not improved much. Patient still gets short of breath while laying in bed. Will continue with getting some fluid off of her and hopefully over the next 24 hours she will be stable to discharge. At this time we will go ahead and change her to inpatient hospitalization. Patient has been diuresed extensively. She is feeling better. She states her respiratory status is much improved. Will get her out of bed and ambulate her anticipate discharge on Monday morning. 2. History of coronary artery disease; Patient remains on cardiac medications. Patient is clinically doing well. 3. Patient with history of hypothyroidism; continue with Synthroid. Thyroid levels are stable. 4. Continue home medications as mentioned and will continue monitoring patient's volume status while hospitalized. Continue on telemetry. Patient's long-term prognosis remains poor. Her son is at bedside and he has been caring for her quite a while. He gets really upset when he does not get questions answered at bedside. He also gets worked up when his mother starts getting short of breath. Will try to communicate with him as effectively as possible I will leave him on information to contact me if he has any questions. *Anticipate discharge over the next 24 hours if patient continues to improve. Discharge Plan: Home Plan to discharge in: 24 Hours - Advance Directives Does patient have a Living Will: No Does patient have a Durable POA for Healthcare: No - Code Status/Comfort Care Code Status: Full Code Critical Care: No Time Spent Managing PTS Care (In Minutes): 35
[2023-05-08] MEDS: ALBUMIN HUMAN 25% 50 ML IV ONE (05:50)
[2023-05-08] MEDS: FUROSEMIDE 40 MG/4 ML VIAL ONE (05:51)
[2023-05-08] MEDS: NA CHLORIDE 0.9% 100 ML ONE (05:53)
[2023-05-08] MEDS: ALBUMIN HUMAN 25% 12.5 GM, FUROSEMIDE 100 MG in NA CHLORIDE 0.9% 40 ML IV SCH ×3 (05:54→17:33)
[2023-05-08 06:35] LABS: Absolute Lymphocytes (CBC) 0.9 K/uL (0.7-4.9); Absolute Monocytes 0.3 K/uL (0.1-1.3); Absolute Neutrophil 13.4 K/uL (1.8-8.0); Basophils % 0.1 % (0-1.3); Hemoglobin 10.7 g/dL (12.0-15.0); Lymphocytes % 5.9 % (15.3-44.8); MCH 25.9 pg (27.0-35.0); MCHC 33.5 g/dL (32.0-36.0); MCV 77.4 fL (80-100); MPV 8.5 fL (7.6-11.3); Monocytes % 1.8 % (3.3-12.3); Neutrophils % 92.2 % (41.7-73.7); Nucleated Red Blood Cells % 0.2 % (0-0); Platelets 429 thou/uL (152-406); RBC Red Blood Cell Count 4.14 M/uL (3.86-4.86); Red Cell Distribution Width 15.4 % (12.1-15.2)
[2023-05-08 06:44] LABS: Anion Gap 10.6 mEq/L (5.0-15.0); Magnesium 2.3 mg/dL (1.6-2.4); Potassium 3.6 mEq/L (3.5-5.1)
[2023-05-08] MEDS: predniSONE 20 MG TAB PO SCH (09:08)
[2023-05-08] MEDS: POTASSIUM CL SA 10 MEQ TAB PO ONE (09:45)
--- NOTE | 2023-05-08 12:40 | P.PN ---
Subjective Date of Service: 05/08/23 Chief Complaint: Shortness of breath Subjective: No new changes Review of Systems 10-point ROS is otherwise unremarkable Physical Examination - Vital Signs Temperature: 97.9 F Blood Pressure: 116/61 Pulse: 77 Respirations: 18 Pulse Ox (%): 92 - Physical Exam General: Alert, Oriented x3 HEENT: Atraumatic Neck: Supple Respiratory: Clear to auscultation bilaterally Cardiovascular: No edema, Normal S1 S2 Gastrointestinal: Normal bowel sounds - Studies Microbiology Data (last 24 hrs): 05/04/23 09:28 Clean Catch Urine [place] Count - Final <10,000 CFU/ML. 05/04/23 09:28 Clean Catch Urine - Final MIXED ARNEL. Medications List Reviewed: Yes Assessment And Plan - Current Problems (Diagnosis) (1) Acute on chronic combined systolic and diastolic heart failure Current Visit: Yes Status: Acute Plan: Patient used to be on Bumex 2 mg daily at home switch Bumex to 2 mg po BID on discharge monitor input and out put and correct electrolytes Patient will need to follow up with [facility] heart failure team for repeated echo in 30 days and also to be evaluated for life vest. (2) CAD (coronary artery disease) Current Visit: Yes Status: Acute Plan: patient with recent stent placement. Continue ASA 81 mg daily Continue Plavix 75 mg daily Lipitor 40 mg daily (3) Dyslipidemia Current Visit: No Status: Chronic Plan: Lipitor 40 mg daily, lipid panel. (4) Hypertension Current Visit: No Status: Chronic Plan: continue Coreg 3.125 mg po BID Spironlactone 12.5 mg daily Qualifiers: Hypertension type: primary hypertension Qualified Code(s): I10 - Essential (primary) hypertension
--- NOTE | 2023-05-08 22:04 | RAD REPORT ---
EXAM DESCRIPTION: Chest Single View CLINICAL HISTORY: Shortness of Breath COMPARISON: 05/04/2023 FINDINGS: Single frontal radiograph view of the chest. Cardiomediastinal silhouette: Atherosclerotic calcification of thoracic aorta. Cardiomegaly. Lungs: Leads overlie the chest. Pulmonary vascular congestion. Bilateral interstitial opacities. Smal l pleural effusions. Bones: No acute osseous abnormality. Degenerative change of the spine and shoulders. Upper abdomen: No abnormality identified. IMPRESSION: Cardiomegaly with pulmonary edema pattern and small pleural effusions. Electronically signed by: Jonathan Ramos DO 05/08/2023 05:52 AM CDT M Due to temporary technical issues with the PACS/Fluency reporting system, reports are being signed by the in house radiologists without review as a courtesy to insure prompt reporting. The interpreting radiologist is fully responsible for the content of the report.
--- NOTE | 2023-05-09 05:14 | P.PN ---
Subjective Date of Service: 05/08/23 Patient had an episode where she became severely short of breath around 3:00 a.m.. Patient's son wanted to take her to the emergency room. However, he was notified that we will call the on-call doctors. Patient was given some more diuresing. Patient's chest x-ray does shows some increased pulmonary opacities. Will diurese a little bit more aggressively with intravenous diuretics. He cardiology recommending increasing Bumex to 2 mg twice a day. We need to increase potassium supplementation as well. Patient's long-term prognosis remains very poor. Patient with significant cardiac disease and valvular disease. Patient has been following up at [facility] heart failure clinic. However, they have deemed that patient is not a surgical candidate for any further intervention. Recommended to continue with conservative and medical management. Long-term prognosis is poor and I tried to relate this to the son. Will continue with diuresing as mentioned above. Hopefully we can get patient's volume status somewhat more improved; however, patient's prognosis is very poor. Review of Systems 10-point ROS is otherwise unremarkable Physical Examination - Vital Signs Temperature: 97.8 F Blood Pressure: 115/64 Pulse: 68 Respirations: 18 Pulse Ox (%): 99 - Physical Exam General: Alert, In no apparent distress, Oriented x3 Respiratory: Diminished, Crackles/rales (basilar) Cardiovascular: Regular rate/rhythm, Normal S1 S2, No murmurs Gastrointestinal: Normal bowel sounds, Soft and benign, Non-distended, No tenderness Musculoskeletal: No clubbing, No swelling, No tenderness Neurological: Sensation intact, Cranial nerves 3-12 intact - Studies Medications List Reviewed: Yes Assessment & Plan - Problems (Diagnosis) (1) Acute on chronic combined systolic and diastolic heart failure Current Visit: Yes Status: Acute (2) CAD (coronary artery disease) Current Visit: Yes Status: Acute (3) CVA (cerebral vascular accident) Onset Date: 12/27/17 Current Visit: No Status: Acute Qualifiers: (4) Malignant hypertension Current Visit: No Status: Acute (5) NSTEMI (non-ST elevated myocardial infarction) Current Visit: No Status: Acute (6) Pulmonary edema Current Visit: No Status: Acute (7) Dyslipidemia Current Visit: No Status: Chronic (8) Hypertension Current Visit: No Status: Chronic Qualifiers: Hypertension type: primary hypertension Qualified Code(s): I10 - Essential (primary) hypertension (9) LBBB (left bundle branch block) Current Visit: No Status: Chronic - Plan Plan: Continue plan of care as mentioned below: 1. Patient with acute on chronic congestive heart failure; patient with combined systolic and diastolic heart failure. Echocardiogram performed with an ejection fraction of 20-25% with global hypokinesis. Bumex IV continued. Patient still needs aggressive diuresing. Patient's respiratory status has slowly improved- however, patient's long-term prognosis remains poor. Will continue with getting some fluid off of her and hopefully over the next 24 hours she will be Make her more compensated. I have tried to get the son to understand that she will always have some underlying shortness of breath. However he is really frustrated that she is not improving and I do not think he really understands the severity of her illness. [facility] heart failure clinic has deemed that there is no further surgical intervention. Patient's son is wanting a 2nd opinion so he wants to follow-up with our Cardiology team. Will get her out of bed and ambulate her anticipate discharge over the next few days. 2. History of coronary artery disease; Patient remains on cardiac medications. Continue with medical management. 3. Patient with history of hypothyroidism; continue with Synthroid. Thyroid levels are stable. 4. Continue home medications as mentioned and will continue monitoring patient's volume status while hospitalized. Continue on telemetry. Patient's long-term prognosis remains poor. Her son is occasionally at bedside and he gets really upset when he does not get questions answered immediately. *Anticipate discharge over the next 48 hours if patient continues to improve. Discharge Plan: Home Plan to discharge in: 48 Hours - Advance Directives Does patient have a Living Will: No Does patient have a Durable POA for Healthcare: No - Code Status/Comfort Care Code Status: Full Code Critical Care: No Time Spent Managing PTS Care (In Minutes): 35
[2023-05-09 07:08] LABS: Absolute Lymphocytes (CBC) 1.6 K/uL (0.7-4.9); Absolute Monocytes 0.6 K/uL (0.1-1.3); Absolute Neutrophil 8.1 K/uL (1.8-8.0); Basophils % 0.2 % (0-1.3); Hematocrit 29.5 % (36.0-45.0); Hemoglobin 9.8 g/dL (12.0-15.0); Lymphocytes % 15.4 % (15.3-44.8); MCH 25.7 pg (27.0-35.0); MCHC 33.3 g/dL (32.0-36.0); MCV 77.1 fL (80-100); MPV 8.8 fL (7.6-11.3); Monocytes % 5.4 % (3.3-12.3); Nucleated Red Blood Cells % 0.3 % (0-0); Platelets 369 thou/uL (152-406); RBC Red Blood Cell Count 3.82 M/uL (3.86-4.86); Red Cell Distribution Width 15.8 % (12.1-15.2)
[2023-05-09 07:24] LABS: Anion Gap 11.4 mEq/L (5.0-15.0); Magnesium 2.6 mg/dL (1.6-2.4); Potassium 3.4 mEq/L (3.5-5.1)
--- NOTE | 2023-05-09 09:49 | P.PN ---
Date of Service: 05/09/23 Subjective: Feeling a little better overall but still with dyspnea feeling constipated / abdominal discomfort. no BM in several days but passing gas otherwise denies any new pains / issues afebrile ROS: 10 point ROS as noted above, otherwise negative Physical Exam: GEN: Alert, oriented, NAD HEENT: Normal conjunctiva, sclera anicteric, CV: Regular rate and rhythm, no edema Pulm: Nonlabored respirations on 3L NC, diminished at bases b/l ABD: soft, nontender, nondistended Neuro: Normal speech, normal affect [place] in place Problem List: Acute on chronic combined systolic / diastolic CHF with Small bilateral pleural effusions NSTEMI Left Bundle Branch block Coronary Artery Disease, s/p recent PCI (April 2023 @[facility]) Constipation Malignant hypertension Hyperlipidemia hx prior CVA Acute on chronic combined systolic / diastolic CHF with Small bilateral pleural effusions NSTEMI Left Bundle Branch block Coronary Artery Disease, s/p recent PCI (April 2023 @[facility]) CT chest (05/06): mild interstitial pulm edema. moderate consolidation both lung bases - atelectasis, infiltrate, or combo of both. Small b/l pleural effusions CXR (05/04): Chronic appearing bilateral interstitial lung markings with no disc rete focal consolidation. Findings favor diffuse interstitial pulmonary edema and trace bilateral effusions given prior imaging findings CXR (05/07): Cardiomegaly with pulmonary edema pattern and small pleural effusions CXR (05/08): ordered troponins elevated but trended flat. Monitor on telemetry echo (05/04): 20-25% EF, severe global hypokinesis, grade 2 diastolic dysfunction, severe mitral annular calcification, mild MR Echo from Dec 2022 previously with 34% EF, anterior/apical hypokinesis, mild MR/AR, severe diastolic dysfunction rising BNP Cardiology is following IV bumex 1mg BID -> will increase to 2mg BID this evening continue PO spironolactone 12.5 mg daily IV lasix drip dc'd (05/07) transition to 2mg bumex PO BID on discharge per cardiology will need to follow up with [facility] on discharge for repeat echo in 1 month and to be evaluated for life vest continue PO steroids, nebs continue aspirin, statin, plavix continue midodrine TID given borderline low-normal BP Constipation no reported BM in 5+ days but passing gas continue colace BID miralax x1 ordered (05/08) will consider enema in afternoon if no/minimal relief Malignant hypertension continue home coreg, spironolactone Hyperlipidemia continue home statin hx prior CVA continue home meds, supportive care continue PT VTE: Lovenox Code: Full Dispo: Home, 1-2 days
[2023-05-09] MEDS: SPIRONOLACTONE 25 MG TABLET PO SCH (10:00)
--- NOTE | 2023-05-09 10:47 | RAD REPORT ---
EXAM DESCRIPTION: [place] Single View05/09/2023 10:17 am CLINICAL HISTORY: Shortness of breath COMPARISON: May 08, 2023 FINDINGS: Mild bilateral interstitial lung opacities probably chronic. Lungs appear clear of acute i nfiltrate Small bilateral pleural effusions. Heart is mildly enlarged
[2023-05-09] MEDS: POLYETHYL GLY 3350 17 GM/DOSE PO ONE (12:16)
[2023-05-09] MEDS ORDERED: FLEET ENEMA ADULT PR PRN (16:23)
[2023-05-09] MEDS: IPRATROPIUM BROM 0.5MG/2.5ML NEB PRN (20:50)
[2023-05-09] MEDS: BUMETANIDE 1 MG/4 ML VIAL IV SCH (20:53)
[2023-05-10 06:55] VITALS: BMI 23.1
[2023-05-10 07:39] LABS: Absolute Lymphocytes (CBC) 1.1 K/uL (0.7-4.9); Absolute Monocytes 0.3 K/uL (0.1-1.3); Absolute Neutrophil 6.5 K/uL (1.8-8.0); Basophils % 0.1 % (0-1.3); Eosinophils % 0.1 % (0-4.4); Hematocrit 33.5 % (36.0-45.0); Lymphocytes % 14.4 % (15.3-44.8); MCH 25.4 pg (27.0-35.0); MCHC 32.8 g/dL (32.0-36.0); MCV 77.5 fL (80-100); MPV 8.3 fL (7.6-11.3); Monocytes % 4.1 % (3.3-12.3); Neutrophils % 81.3 % (41.7-73.7); Nucleated Red Blood Cells % 0.3 % (0-0); Platelets 370 thou/uL (152-406); RBC Red Blood Cell Count 4.33 M/uL (3.86-4.86); Red Cell Distribution Width 15.7 % (12.1-15.2)
[2023-05-10 07:49] LABS: Albumin 3.9 g/dL (3.4-5.0); Anion Gap 9.8 mEq/L (5.0-15.0); Magnesium 2.8 mg/dL (1.6-2.4); Potassium 3.8 mEq/L (3.5-5.1)
--- NOTE | 2023-05-10 09:20 | P.DS ---
Admission Date: 05/05/23 Discharge Date: 05/10/23 Disposition: ROUTINE DISCHARGE Discharge Condition: GOOD Reason for Admission: Shortness of breath Consultations: Cardiology - Dr. Tubbs / Dr. Dick Brief History of Present Illness: 88yo F, PMH: combined systolic/diastolic CHF, CVA, hypertension, hyperlipidemia, CAD s/p PCI, (April 2023) Patient presents to the emergency room with shortness of breath. She reports shortness of breath worse this morning. It started 2 hours prior to arrival. She reports history of a recent PCI 1 week ago. [facility]. His son is at bedside is primary historian. Reports shortness of breath is worse with exertion, reports chest tightness. Reports taking Plavix, medication compliance, no reported fever, nausea vomiting diarrhea edema dizziness. Plan to admit for acute on chronic heart failure, hypoxia. Patient treated with Lovenox 1 mg/kg, EKG s 69 beats/min. Rhythm is regular, Sinus Rhythm. QRS [place] is Normal. CA interval is normal. QRS interval is prolonged. QT interval is normal. No Q waves. T waves are Normal. No ST changes noted. Clinical impression: No evidence of ischemia. Vital signs BP 173 / 94; Pulse 124; Resp 24; Temp 97(TE); Pulse Ox 85% on R/A; Weight 59 kg (M); Height 5 ft. 3 in. ; Pain 0/10. Elevated troponin 77, 223, microcytic anemia 10.8 32.9 early left shift 78 point, cardiology consulted Hospital Course: Problem List: Acute on chronic combined systolic / diastolic CHF with Small bilateral pleural effusions NSTEMI Left Bundle Branch block Coronary Artery Disease, s/p recent PCI (April 2023 @[facility]) Constipation Malignant hypertension Hyperlipidemia hx prior CVA Patient presented with worsening dyspnea and was found to have an acute on chronic CHF exacerbation. CT chest/Chest x-ray noted mild-mod pulmonary edema, small bilateral pleural effusions. Troponins were elevated but trended flat. Patient reported she recently had PCI ~1 week prior to admission at [facility]. Cardiology was consulted and recommended to continue on bumex 2mg twice daily and 12.5mg spironolactone. Patient was aggressively diuresised with IV lasix, IV bumex, and spironolactone and patient's respiratory status slowly improved with time. Echo this hospitalization with EF of 20-25%, severe global hypokinesis, grade 2 diastolic dysfunction, severe mitral annular calcification, mild mitral regurgigation, worse compared to her echo in 2022 (~34%EF). 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 Patient was feeling better, breathing more comfortably (on 2L NC), and deemed stable for discharge. Patient reported having home oxygen already setup. Advised to use oxygen supplementation as needed at home to keep oxygen levels (SPO2) greater than 90. Patient's blood pressure was noted to be low to low-normal intermittently throughout hospitalization. Suspect secondary to overdiuresis. Patient's spironolactone was decreased to 12.5 mg from 25mg per cardiac recommendations. Blood pressure improved and remained stable in 120-130s for rest of her hospitalization. Check blood pressure around the same time each day. Advised to keep daily diary of blood pressure readings to take to follow up appointments for further adjustment of medications. During her hospitalization, patient reported abdominal discomfort secondary to constipation / no BM in several days. She was given colace and miralax and was able to have a BM with significant relief prior to discharge. Advised to consider laxative (miralax) if no BM in ~2 days. If no minimal relief after a few hours of taking miralax, can take another dose, or consider enema/suppository. Medications: resume bumex 2mg twice a day Spironolactone 12.5 mg daily Midodrine 5mg every 8 hours for low pressure - take scheduled and if blood pressure remains consistently >130 systolic, can stop medication and check blood pressure. Ok to discontinue medication if blood pressure remains >110 systolic without this medication or as instructed by your PCP/Bank Representative. colace 100mg twice daily miralax 1-2 packets as needed if no bowel movement in 2 days over the counter anusol cream for hemorrhoid treatment. atorvastatin increased to 40mg from 20mg. Follow up: PCP 3-5 days Cardiology ~1 month Physical Exam: GEN: Alert, oriented, NAD HEENT: Normal conjunctiva, sclera anicteric, CV: Regular rate and rhythm, no edema Pulm: Nonlabored respirations on 2L NC, slightly diminished at bases b/l ABD: soft, nontender, nondistended Neuro: Normal speech, normal affect Vital Signs/Physical Exam: Temp Pulse Resp BP Pulse Ox 97.6 F 74 18 137/73 18 L 05/10/23 04:00 05/10/23 04:00 05/10/23 04:00 05/10/23 04:00 05/10/23 04:00 Laboratory Data at Discharge: WBC 8.00 thou/uL (4.3-10.9) 05/10/23 07:17 Hgb 11.0 g/dL (12.0-15.0) L D 05/10/23 07:17 Hct 33.5 % (36.0-45.0) L 05/10/23 07:17 Plt Count 370 thou/uL (152-406) 05/10/23 07:17 Sodium 135 mEq/L (136-145) L 05/10/23 07:17 Potassium 3.8 mEq/L (3.5-5.1) 05/10/23 07:17 BUN 35 mg/dL (7-18) H 05/10/23 07:17 Creatinine 0.89 mg/dL (0.55-1.02) 05/10/23 07:17 Glucose 190 mg/dL (74-106) H 05/10/23 07:17 Phosphorus 4.0 mg/dL (2.5-4.9) 05/10/23 07:17 Magnesium 2.8 mg/dL (1.6-2.4) H 05/10/23 07:17 Total Bilirubin 0.9 mg/dL (0.2-1.0) 05/04/23 03:25 AST 20 U/L (15-37) 05/04/23 03:25 ALT 16 U/L (13-56) 05/04/23 03:25 Alkaline Phosphatase 115 U/L (45-117) 05/04/23 03:25 Triglycerides 150 mg/dL (<150) 05/05/23 07:16 Cholesterol 125 mg/dL (<200) 05/05/23 07:16 HDL Cholesterol 27 mg/dL (40-60) L 05/05/23 07:16 Cholesterol/HDL Ratio 4.63 05/05/23 07:16 Home Medications: Aspirin Chewable [Aspirin Chewable*] 81 mg PO DAILY 02/15/22 Atorvastatin Calcium [Lipitor*] 20 mg PO BEDTIME 02/15/22 Ipratropium/Albuterol Sulfate [Iprat-Albut 0.5-3(2.5) mg/3 ml] 3 ml IH BEDTIME 01/06/23 Bumetanide See Rx Instructions .ROUTE .COMPLEX 03/16/23 Clopidogrel Bisulfate [Plavix] 75 mg PO DAILY 05/04/23 Atorvastatin Calcium [Lipitor] 40 mg PO BEDTIME #30 tab 05/08/23 Clopidogrel Bisulfate [Plavix*] 75 mg PO DAILY #30 tab 05/08/23 Docusate [Colace Cap*] 100 mg PO BID #30 cap 05/08/23 Ipratropium Neb [Atrovent*] 0.5 mg NEB [id number] #60 amp 05/08/23 Midodrine HCl [Proamatine*] 5 mg PO TID #90 tab 05/08/23 carvediloL [Coreg*] 3.125 mg PO BID 6AM 6PM #60 tab 05/08/23 predniSONE [Prednisone*] 20 mg PO BID #11 tab 05/08/23 Spironolactone [Aldactone*] 12.5 mg PO DAILY tab 05/10/23 New Medications: Ipratropium Neb [Atrovent*] 0.5 mg NEB [id number] #60 amp Docusate [Colace Cap*] 100 mg PO BID #30 cap carvediloL [Coreg*] 3.125 mg PO BID 6AM 6PM #60 tab Atorvastatin Calcium [Lipitor] 40 mg PO BEDTIME #30 tab Clopidogrel Bisulfate [Plavix*] 75 mg PO DAILY #30 tab predniSONE [Prednisone*] 20 mg PO BID #11 tab Midodrine HCl [Proamatine*] 5 mg PO TID #90 tab Physician Discharge Instructions: Physician Discharge Instructions: Patient presented with worsening dyspnea and was found to have an acute on chronic CHF exacerbation. CT chest/Chest x-ray noted mild-mod pulmonary edema, small bilateral pleural effusions. Troponins were elevated but trended flat. Patient reported she recently had PCI ~1 week prior to admission at [facility]. Cardiology was consulted and recommended to continue on bumex 2mg twice daily and 12.5mg spironolactone. Patient was aggressively diuresised with IV lasix, IV bumex, and spironolactone and patient's respiratory status slowly improved with time. Echo this hospitalization with EF of 20-25%, severe global hypokinesis, grade 2 diastolic dysfunction, severe mitral annular calcification, mild mitral regurgigation, worse compared to her echo in 2022 (~34%EF). 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 Patient was feeling better, breathing more comfortably (on 2L NC), and deemed stable for discharge. Patient reported having home oxygen already setup. Advised to use oxygen supplementation as needed at home to keep oxygen levels (SPO2) greater than 90. Patient's blood pressure was noted to be low to low-normal intermittently throughout hospitalization. Suspect secondary to overdiuresis. Patient's spironolactone was decreased to 12.5 mg from 25mg per cardiac rec ommendations. Blood pressure improved and remained stable in 120-130s for rest of her hospitalization. Check blood pressure around the same time each day. Advised to keep daily diary of blood pressure readings to take to follow up appointments for further adjustment of medications. If blood pressure is < , advised to take midodrine. During her hospitalization, patient reported abdominal discomfort secondary to constipation / no BM in several days. She was given colace and miralax and was able to have a BM with significant relief prior to discharge. Advised to consider laxative (miralax) if no BM in ~2 days. If no minimal relief after a few hours of taking miralax, can take another dose, or consider enema/suppository. Medications: resume bumex 2mg twice a day Spironolactone 12.5 mg daily Midodrine 5mg every 8 hours for low pressure - take scheduled and if blood pressure remains consistently >130 systolic, can stop medication and check blood pressure. Ok to discontinue medication if blood pressure remains >110 systolic without this medication or as instructed by your PCP/Bank Representative. colace 100mg twice daily miralax 1-2 packets as needed if no bowel movement in 2 days over the counter anusol cream for hemorrhoid treatment. atorvastatin increased to 40mg from 20mg. Follow up: PCP 3-5 days Cardiology ~1 month Diet: Low sodium Activity: Fall precautions Followup: OOT,OOT [Primary Care Provider] - Time spent managing pt's care (in minutes): 45
[2023-05-10] MEDS: BUMETANIDE 1 MG TABLET PO SCH (11:56)
[2023-05-10 12:15] VITALS: BP 116/59
[2023-05-10 13:19] VITALS: O2SAT 99
[2023-05-10 13:54] VITALS: TEMP 97.8
--- NOTE | 2023-05-10 17:42 | PN ---
Date of Progress Note: 05/10/2023 Subjective: Seen by bedside. Doing well. No significant shortness of breath. Review of Systems: No chest pain. She has shortness of breath on exertion, but no resting shortness of breath. No sign ificant orthopnea or lower extremity edema. No nausea, vomiting, or diarrhea. All other systems wer e reviewed, they were negative. Objective: Vital Signs: Reviewed. Head and Neck: Pupils are equal, reactive to light. Intact eye movements. No JVD. No cervical lym phadenopathy. Neck is supple. Thyroid is not enlarged. Lungs: Clear to auscultation bilaterally. No rhonchi, wheezing, or crackles. No accessory muscle u se. Heart: Regular. No extra sounds. Abdomen: Soft, nontender. Bowel sounds positive. No organomegaly. No masses or hernia. No rigidi ty or rebound. Extremities: No edema, clubbing, or cyanosis. Intact pulses. Skin: No rash or nodule. Neurologic: Alert, awake, oriented x3. No acute focal deficits appreciated. Investigations: BUN 35, creatinine 0.89, and hemoglobin is 11. Assessment And Recommendations: 1.Acute on chronic heart failure exacerbation, improved on oral diuretics. Continue current managem ent. Low-salt diet. 2.Coronary artery disease. Borderline elevated troponin. No chest pain. This is likely demand. R ecommend outpatient stress test. 3.Hypertension. Blood pressure is controlled. Continue current therapy. 4.Dyslipidemia, on Lipitor. SR/MODL Voice ID: [id number] Report ID: [id number]
== END 2023-05-10 12:58 | disposition home or self-care (01) | DRG 280 ==
LOC: ER 02:35 → ERHOLD 06:55 → 4TH 08:08 → OBSVTOIN 05-05 13:00
PROVIDERS: ADMIT Internal Medicine Nephrology; ATTEND Hospitalist
PROC: 4A033R1 Measurement of Arterial Saturation, Peripheral, Percutaneous Approach (ICD-10-PCS; principal; 2023-05-05)
PROC: 5A09557 Assistance with Respiratory Ventilation, Greater than 96 Consecutive Hours, Continuous Positive Airway Pressure (ICD-10-PCS; 2023-05-05)
PROC: 0T9B70Z Drainage of Bladder with Drainage Device, Via Natural or Artificial Opening (ICD-10-PCS; 2023-05-10)
DX: I11.0 Hypertensive heart disease with heart failure (principal); I21.4 Non-ST elevation (NSTEMI) myocardial infarction; I50.43 Acute on chronic combined systolic (congestive) and diastolic (congestive) heart failure; D50.9 Iron deficiency anemia, unspecified; E03.9 Hypothyroidism, unspecified; E78.5 Hyperlipidemia, unspecified; K59.00 Constipation, unspecified; I44.7 Left bundle-branch block, unspecified; I25.10 Atherosclerotic heart disease of native coronary artery without angina pectoris; R79.89 Other specified abnormal findings of blood chemistry; Z79.82 Long term (current) use of aspirin; Z79.52 Long term (current) use of systemic steroids; Z79.02 Long term (current) use of antithrombotics/antiplatelets; Z90.49 Acquired absence of other specified parts of digestive tract; Z86.73 Personal history of transient ischemic attack (TIA), and cerebral infarction without residual deficits; Z90.710 Acquired absence of both cervix and uterus; Z79.899 Other long term (current) drug therapy; Z79.890 Hormone replacement therapy
CPT/HCPCS: 36415; 36600; 51702; 71045; 71260; 80048; 80061; 80069; 80076; 81001; 82805; 82947; 83735; 83880; 84100; 84132; 84484; 85025; 86140; 87086; 87088; 93005; 93306; 94640; 94660; 96365; 96372; 96375; 97116; 97161; 97530; 99285; G0378; J1650; J1940; J2405; J2930; J3360; J7512; J7644; P9047; Q9967

== ENCOUNTER 2023-05-21 22:37 | Emergency (ER) | payer OTHER ==
[2023-05-21] MEDS ORDERED: FAMOTIDINE 20 MG/2 ML VIAL IV ONE (23:03)
[2023-05-21] MEDS ORDERED: FUROSEMIDE 40 MG/4 ML VIAL ONE (23:04)
[2023-05-22 00:33] LABS: Absolute Eosinophils 0.2 K/uL (0-0.5); Absolute Lymphocytes (CBC) 1.9 K/uL (0.7-4.9); Absolute Monocytes 0.8 K/uL (0.1-1.3); Absolute Neutrophil 7.1 K/uL (1.8-8.0); Basophils % 0.2 % (0-1.3); Eosinophils % 1.5 % (0-4.4); Hematocrit 30.6 % (36.0-45.0); Hemoglobin 10.2 g/dL (12.0-15.0); Lymphocytes % 19.4 % (15.3-44.8); MCH 25.3 pg (27.0-35.0); MCHC 33.3 g/dL (32.0-36.0); Neutrophils % 70.9 % (41.7-73.7); Platelets 326 thou/uL (152-406); RBC Red Blood Cell Count 4.03 M/uL (3.86-4.86); Red Cell Distribution Width 16.4 % (12.1-15.2)
[2023-05-22 00:42] LABS: ALT/SGPT 13 U/L (13-56); AST/SGOT 13 U/L (15-37); Albumin 3.5 g/dL (3.4-5.0); Alkaline Phosphatase 97 U/L (45-117); Anion Gap 11.9 mEq/L (5.0-15.0); BUN Blood Urea Nitrogen 18 mg/dL (7-18); Bicarbonate 28 mEq/L (21-32); Bilirubin Total 0.5 mg/dL (0.2-1.0); Globulin 3.6 g/dL (2.3-3.5); Glomerular Filtration Rate 70 ml/min (=/>90); Glucose Level 239 mg/dL (74-106); NT PRO-BNP 2741 pg/mL (<450); Potassium 2.9 mEq/L (3.5-5.1); Protein, Total 7.1 g/dL (6.4-8.2); Sodium Level 138 mEq/L (136-145); Troponin High Sensitivity 51.5 pg/mL (<58.9)
[2023-05-22 00:46] LABS: Bilirubin Direct < 0.1 mg/dL (0-0.2); Bilirubin Indirect, Calculated ND mg/dL (0.2-0.8)
--- NOTE | 2023-05-22 01:01 | ER ---
Nurse's Notes [facility] Name: Erika Jacobson Age: 88 yrs Sex: Female : 1935 Arrival Date: 05/21/2023 Time: 22:37 Bed 14 Private MD: Diagnosis: Dyspnea;Hypokalemia Presentation: 05/20 22:37 Chief complaint: Patient states: I am having a hard time breathing and have chest pain bm8 for about one hr. Coronavirus screen: At this time, unable to obtain information related to travel outside the [place] At this time, the client does not indicate any symptoms associated with coronavirus-19. Ebola Screen: Patient negative for fever greater than or equal to 101.5 degrees Fahrenheit, and additional compatible Ebola Virus Disease symptoms Patient denies exposure to infectious person. No symptoms or risks identified at this time. Initial Sepsis Screen: Does the patient meet any 2 criteria? No. Patient's initial sepsis screen is negative. Does the patient have a suspected source of infection? No. Patient's initial sepsis screen is negative. Risk Assessment: Do you want to hurt yourself or someone else? Patient reports no desire to harm self or others. Onset of symptoms was May 21, 2023 at 21:30. 22:37 Method Of Arrival: Wheelchair bm8 22:37 Acuity: ISHAN 2 bm8 Triage Assessment: 22:57 General: Appears in no apparent distress. uncomfortable, Behavior is calm, cooperative, bm8 appropriate for age. Pain: Complains of pain in chest Pain does not radiate. Pain currently is 7 out of 10 on a pain scale. Quality of pain is described as sharp, Pain began 1 hour ago. EENT: No deficits noted. No signs and/or symptoms were reported regarding the EENT system. Neuro: No deficits noted. Level of Consciousness is awake, alert, obeys commands, Oriented to person, place, time, situation, Appropriate for age. Cardiovascular: Reports chest pain, shortness of breath, Capillary refill < 3 seconds Patient's skin is warm and dry. Cardiovascular: swelling to lower legs. Respiratory: Reports shortness of breath Airway is patent Respiratory effort is even, unlabored, Respiratory pattern is regular, symmetrical, Breath sounds are clear bilaterally. 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 GI: No deficits noted. : No deficits noted. No signs and/or symptoms were reported regarding the genitourinary system. Derm: No deficits noted. No signs and/or symptoms reported regarding the dermatologic system. Musculoskeletal: No deficits noted. No signs and/or symptoms reported regarding the musculoskeletal system. Historical: - Allergies: 22:57 No Known Allergies; bm8 - Home Meds: 22:57 aspirin 81 mg Oral chew 1 tab once daily [Active]; atorvastatin 20 mg Oral tablet 1 tab bm8 every day at bedtime [Active]; carvedilol 3.125 mg Oral tablet 0.5 tab 2 times per day [Active]; Lasix 40 mg Oral tablet 2 tabs morning and noon [Active]; losartan 100 mg Oral tab 1 tab once daily [Active]; Bumex Oral [Active]; - PMHx: 22:57 Asthma; Congestive heart failure; CVA; Hyperlipidemia; Hypertension; bm8 - PSHx: 22:57 choleycestectomy; hysterectomy; kidney stones; bm8 - Immunization history:: Adult Immunizations up to date. - Infectious Disease History:: Denies. - Social history:: Smoking status: Patient denies any tobacco usage or history of. - Family history:: not pertinent. Screenin:20 [facility] ED Fall Risk Assessment (Adult) History of falling in the last 3 months, km8 including since admission No falls in past 3 months (0 pts) Confusion or Disorientation No (0 pts) Intoxicated or Sedated No (0 pts) Impaired Gait No (0 pts) Mobility Assist Device Used No (0 pt) Altered Elimination No (0 pt) Score/Fall Risk Level 0 - 2 = Low Risk Oriented to surroundings, Maintained a safe environment, Educated pt \T\ family on fall prevention, incl call for assistance when getting out of bed, Assessed \T\ reinforced patient's understanding of fall precautions. Abuse screen: Denies threats or abuse. Denies injuries from another. Nutritional screening: No deficits noted. Tuberculosis screening: No symptoms or risk factors identified. Assessment: 23:20 General: Appears in no apparent distress. comfortable, Behavior is calm, cooperative, km8 appropriate for age. Pain: Complains of pain in chest Pain currently is 8 out of 10 on a pain scale. Neuro: Level of Consciousness is awake, alert, obeys commands, Oriented to person, place, time, situation. Cardiovascular: Reports chest pain, shortness of breath, Patient's skin is warm and dry. Rhythm is sinus tachycardia Chest pain is described as diffuse, is located in anterior chest wall. Respiratory: Reports shortness of breath at rest Airway is patent Respiratory effort is even, unlabored, Respiratory pattern is regular, symmetrical, the patient has mild shortness of breath. GI: No signs and/or symptoms were reported involving the gastrointestinal system. : No signs and/or symptoms were reported regarding the genitourinary system. EENT: No signs and/or symptoms were reported regarding the EENT system. Derm: No signs and/or symptoms reported regarding the dermatologic system. Skin is intact, is healthy with good turgor, Skin is dry, Skin is normal, Skin temperature is warm. Musculoskeletal: No signs and/or symptoms reported regarding the musculoskeletal system. Range of motion: intact in all extremities. 05/21 00:30 Reassessment: Patient appears in no apparent distress at this time. No changes from km8 previously documented assessment. Patient and/or family updated on plan of care and expected duration. Pain level reassessed. Patient is alert, oriented x 3, equal unlabored respirations, skin warm/dry/pink. 01:07 Reassessment: Patient appears in no apparent distress at this time. No changes from km8 previously documented assessment. Patient and/or family updated on plan of care and expected duration. Pain level reassessed. Patient is alert, oriented x 3, equal unlabored respirations, skin warm/dry/pink. 01:17 Reassessment: pt and son requesting to stay 1 hour after potassium pills are given and km8 to make sure the frequent urination from the Lasix is decreasing. 02:00 Reassessment: Patient appears in no apparent distress at this time. No changes from km8 previously documented assessment. Patient and/or family updated on plan of care and expected duration. Pain level reassessed. Patient is alert, oriented x 3, equal unlabored respirations, skin warm/dry/pink. Vital Signs: 05/20 22:37 BP 135 / 62; Pulse 114; Resp 17; Temp 98.7; Pulse Ox 97% on R/A; Weight 65.77 kg; bm8 Height 4 ft. 10 in. ; Pain 8/10; 22:45 BP 115 / 74; Pulse 113; Resp 16; Pulse Ox 96% on R/A; km8 23:00 BP 123 / 63; Pulse 111; Resp 16; Pulse Ox 95% on R/A; km8 23:30 BP 117 / 51; Pulse 91; Resp 16; Pulse Ox 95% on R/A; km8 0408 00:00 BP 112 / 55; Pulse 89; Resp 16; Pulse Ox 95% on R/A; km8 00:30 BP 112 / 52; Pulse 89; Resp 16; Pulse Ox 94% on R/A; km8 01:00 BP 116 / 58; Pulse 97; Resp 16; Pulse Ox 96% on R/A; km8 02:00 BP 129 / 62; Pulse 90; Resp 16; Pulse Ox 97% on R/A; km8 05/20 22:37 Body Mass Index 30.30 (65.77 kg, 147.32 cm) 8 05/20 22:37 Pain Scale: Adult bm8 [place] Coma Score: 05/20 23:20 Eye Response: spontaneous(4). Motor Response: obeys commands(6). Verbal Response: km8 oriented(5). Total: 15. ED Course: 22:37 Patient arrived in ED. ra3 22:41 Bossman Bower MD is Attending Physician. rt 22:57 Triage completed. bm8 22:57 Arm band placed on right wrist. Patient placed in an exam room, on a stretcher, on bm8 hall monitor, on pulse oximetry. 23:02 EKG done, by ED staff. km8 23:10 XRAY Chest (1 view) In Process Unspecified. EDMS 23:19 Basic Metabolic Panel Sent. km8 23:19 CBC with Diff Sent. km8 23:19 LFT's Sent. km8 23:19 Magnesium Sent. km8 23:19 NT PRO-BNP Sent. km8 23:19 Troponin HS Sent. km8 23:20 Patient has correct armband on for positive identification. Placed in gown. Bed in low km8 position. Call light in reach. Side rails up X 1. Adult w/ patient. Client placed on continuous cardiac and pulse oximetry monitoring. NIBP monitoring applied. security monitor on. Pulse ox on. NIBP on. Warm blanket given. 23:20 Initial lab(s) drawn, by me, sent to lab. Inserted saline lock: 22 gauge in right km8 wrist, using aseptic technique. Blood collected. 23:31 Ale Rose, RN is Primary Nurse. km8 05/21 01:09 Provided Education on: d/c teaching. 01:09 No provider procedures requiring assistance completed. km8 02:44 IV discontinued, intact, bleeding controlled, No redness/swelling at site. Pressure km8 dressing applied. Administered Medications: 05/20 23:19 Drug: Furosemide IVP 40 mg IVP once; give over 2 minutes Route: IVP; Site: right wrist; km8 05/21 01:09 Follow up: Response: No adverse reaction 8 01:17 Drug: Potassium Chloride PO 20 mEq PO once Route: PO; km8 02:45 Follow up: Response: No adverse reaction km8 Medication: 05/20 23:20 VIS not applicable for this client. km8 Output: 05/21 00:40 Urine: 725ml (Voided); Total: 725ml. 02:30 Urine: 200ml (Voided); Total: 925ml. km8 Outcome: 01:01 Discharge ordered by . rt 02:45 Discharged to home via wheelchair, with family, km8 02:45 Condition: good 02:45 Discharge instructions given to family, Instructed on discharge instructions, follow up and referral plans. Demonstrated understanding of instructions, follow-up care, 02:45 Patient left the ED. 8 Signatures: Dispatcher [employer] EDMS Bossman Bower MD MD rt Ale Rose, RN RN 8 Chitra Garcia ra3 Donald Ariza RN RN 8 Corrections: (The following items were deleted from the chart) 02:09 02:00 Pulse 90bpm; Resp 16bpm; Pulse Ox 97% RA; km8 km8
--- NOTE | 2023-05-22 01:01 | EDPHYS ---
Physician Documentation [facility] Name: Erika Jacobson Age: 88 yrs Sex: Female : 1935 Arrival Date: 05/21/2023 Time: 22:37 Bed 14 Private MD: ED Physician Bossman Bower HPI: 05/20 23:15 This 88 yrs old Female presents to ER via Wheelchair with complaints of rt Shortness Of Breath. 23:15 Patient with history of CHF presents to the ED with dyspnea for about an hour. Patient rt is had worsening lower extremity edema, states that her Bumex has not been diuresing as it had been otherwise. Denies other acute complaints at this time, symptoms are moderate in severity, no other aggravating or alleviating factors. Does report a mild chest pain.. Historical: - Allergies: 22:57 No Known Allergies; bm8 - Home Meds: 22:57 aspirin 81 mg Oral chew 1 tab once daily [Active]; atorvastatin 20 mg Oral tablet 1 tab bm8 every day at bedtime [Active]; carvedilol 3.125 mg Oral tablet 0.5 tab 2 times per day [Active]; Lasix 40 mg Oral tablet 2 tabs morning and noon [Active]; losartan 100 mg Oral tab 1 tab once daily [Active]; Bumex Oral [Active]; - PMHx: 22:57 Asthma; Congestive heart failure; CVA; Hyperlipidemia; Hypertension; bm8 - PSHx: 22:57 choleycestectomy; hysterectomy; kidney stones; bm8 - Immunization history:: Adult Immunizations up to date. - Infectious Disease History:: Denies. - Social history:: Smoking status: Patient denies any tobacco usage or history of. - Family history:: not pertinent. ROS: 23:15 Constitutional: Negative for fever, chills, and weight loss, Abdomen/GI: Negative for rt abdominal pain, nausea, vomiting, diarrhea, and constipation, MS/Extremity: Negative for injury and deformity, Skin: Negative for injury, rash, and discoloration, Neuro: Negative for headache, weakness, numbness, tingling, and seizure, 23:15 Cardiovascular: Positive for chest pain, edema, 23:15 Respiratory: Positive for cough, shortness of breath, Exam: 23:15 Constitutional: This is a well developed, well nourished patient who is awake, alert, rt and in no acute distress. Head/Face: Normocephalic, atraumatic. Chest/axilla: Normal chest wall appearance and motion. Nontender with no deformity. No lesions are appreciated. Cardiovascular: Regular rate and rhythm with a normal S1 and S2. No gallops, murmurs, or rubs. Normal PMI, no JVD. No pulse deficits. Abdomen/GI: Soft, non-tender, with normal bowel sounds. No distension or tympany. No guarding or rebound. No evidence of tenderness throughout. Skin: Warm, dry with normal turgor. Normal color with no rashes, no lesions, and no evidence of cellulitis. Neuro: Awake and alert, GCS 15, oriented to person, place, time, and situation. Cranial nerves II-XII grossly intact. Motor strength 5/5 in all extremities. Sensory grossly intact. Cerebellar exam normal. Normal gait. Psych: Awake, alert, with orientation to person, place and time. Behavior, mood, and affect are within normal limits. 23:15 ECG was reviewed by the Attending Physician. 23:15 Respiratory: Bibasilar crackles, no respiratory distress, 23:15 Musculoskeletal/extremity: 2+ bilateral lower extremity edema. Vital Signs: 22:37 BP 135 / 62; Pulse 114; Resp 17; Temp 98.7; Pulse Ox 97% on R/A; Weight 65.77 kg; bm8 Height 4 ft. 10 in. ; Pain 8/10; 22:45 BP 115 / 74; Pulse 113; Resp 16; Pulse Ox 96% on R/A; km8 23:00 BP 123 / 63; Pulse 111; Resp 16; Pulse Ox 95% on R/A; km8 23:30 BP 117 / 51; Pulse 91; Resp 16; Pulse Ox 95% on R/A; km8 0408 00:00 BP 112 / 55; Pulse 89; Resp 16; Pulse Ox 95% on R/A; km8 00:30 BP 112 / 52; Pulse 89; Resp 16; Pulse Ox 94% on R/A; km8 01:00 BP 116 / 58; Pulse 97; Resp 16; Pulse Ox 96% on R/A; km8 02:00 BP 129 / 62; Pulse 90; Resp 16; Pulse Ox 97% on R/A; km8 05/20 22:37 Body Mass Index 30.30 (65.77 kg, 147.32 cm) bm8 05/20 22:37 Pain Scale: Adult bm8 Alejandra Coma Score: 05/20 23:20 Eye Response: spontaneous(4). Motor Response: obeys commands(6). Verbal Response: km8 oriented(5). Total: 15. MDM: 22:47 Patient medically screened. rt 05/21 01:02 Differential diagnosis: CHF, ACS, dyspnea. Data reviewed: vital signs, nurses notes, rt lab test result(s), EKG, radiologic studies. Consideration of Admission/Observation Escalation of care including admission/observation considered. Symptoms resolved with Lasix, low suspicion for any acute coronary syndrome, troponin is negative. Patient does have potassium at home, will give 1 dose here, instructed to take potassium and have labs rechecked.. Independent interpretation of the following test(s) in the Emergency Department X-Ray: My interpretation is No pneumonia seen on my interpretation x-ray images. Test considered but Not performed: CT: Low suspicion for pulmonary embolism, CT angiogram not indicated. Care significantly affected by the following chronic conditions: Congestive Heart Failure. Counseling: I had a detailed discussion with the patient and/or guardian regarding the historical points, exam findings, and any diagnostic results supporting the discharge/admit diagnosis, lab results, radiology results, the need for outpatient follow up, to return to the emergency department if symptoms worsen or persist or if there are any questions or concerns that arise at home. Response to treatment: the patient's symptoms have markedly improved after treatment. 05/20 22:47 Order name: Basic Metabolic Panel; Complete Time: 00:47 rt 05/20 22:47 Order name: CBC with Diff; Complete Time: 00:47 rt 05/20 22:47 Order name: LFT's; Complete Time: 00:47 rt 05/20 22:47 Order name: Magnesium; Complete Time: 00:47 rt 05/20 22:47 Order name: NT PRO-BNP; Complete Time: 00:47 rt 05/20 22:47 Order name: Troponin HS; Complete Time: 00:47 rt 04 22:47 Order name: XRAY Chest (1 view) rt 05/20 22:47 Order name: EKG; Complete Time: 22:48 rt 05/20 22:47 Order name: Cardiac monitoring; Complete Time: 23:01 rt 05/20 22:47 Order name: EKG - Nurse/Tech; Complete Time: 23: rt 05/20 22:47 Order name: IV Saline Lock; Complete Time: 23:19 rt 05/20 22:47 Order name: Labs collected and sent; Complete Time: 23:19 rt 05/20 22:47 Order name: O2 Per Protocol; Complete Time: 23: rt 05/20 22:47 Order name: O2 Sat Monitoring; Complete Time: 23: rt EC/07 23:15 Rate is 110 beats/min. Rhythm is regular, Sinus tachycardia with Left bundle branch rt block. QRS [place] is Normal. SC interval is normal. QRS interval is normal. QT interval is normal. No Q waves. No ST changes noted. Administered Medications: 23:19 Drug: Furosemide IVP 40 mg IVP once; give over 2 minutes Route: IVP; Site: right wrist; 8 05/21 01:09 Follow up: Response: No adverse reaction [facility] 01:17 Drug: Potassium Chloride PO 20 mEq PO once Route: PO; [facility] 02:45 Follow up: Response: No adverse reaction 8 Disposition Summary: 05/22/23 01:01 Discharge Ordered Notes: Location: Home rt Problem: an acute exacerbation rt Symptoms: have improved rt Condition: Stable rt Diagnosis - Dyspnea rt - Hypokalemia rt Followup: rt - With: Private Physician - When: 5 - 6 days - Reason: Discharge Instructions: - Discharge Summary Sheet rt - Hypokalemia rt - Heart Failure, Self-Care rt Forms: - Medication Reconciliation Form rt - Thank You Letter rt - Antibiotic Education rt - Prescription Opioid Use rt - Patient Portal Instructions rt - Leadership Thank You Letter rt Signatures: Dispatcher [employer] Bossman East MD MD rt Ale Rose, RN RN km8 Donald Ariza, RN RN bm8
[2023-05-22] MEDS ORDERED: POTASSIUM 25 MEQ EFFERV TAB ONE (01:11)
[2023-05-22] MEDS ORDERED: POTASSIUM CL SA 10 MEQ TAB PO ONE (01:16)
[2023-05-22 11:01] VITALS: BP 129/62; TEMP 98.7; O2SAT 97
--- NOTE | 2023-05-22 12:41 | EKG ---
Test Date: 2023-05-21 Test Time: 22:56:37 Plate Glass Installer: LESLY MEASUREMENT RESULTS: Intervals: Rate: 110 NH: 174 QRSD: 146 QT: 338 QTc: 457 [place]: P: 69 NH: 174 QRS: 13 T: 57 INTERPRETIVE STATEMENTS: Sinus tachycardia Nonspecific intraventricular block Abnormal ECG Compared to ECG 05/04/2023 03:25:18 Sinus rhythm no longer present Left bundle-branch block no longer present Electronically Signed On 05-22-23 12:40:05 CDT by Preston Tubbs
--- NOTE | 2023-05-22 13:27 | RAD REPORT ---
EXAM DESCRIPTION: RAD - Chest Single View - 05/21/2023 11:08 pm CLINICAL HISTORY: DYSPNEA TECHNIQUE: AP chest COMPARISON: May 07 FINDINGS: Improvement in vascular congestion and interstitial prominence consistent with resolving c ongestive failure and interstitial pulmonary edema. Atelectatic changes in the lung bases bilaterally. No focal consolidation or pneumothorax. IMPRESSION: No acute cardiopulmonary disease. Electronically signed by: Anton Morales MD 05/21/2023 11:18 PM CDT Due to temporary technical issues with the PACS/Fluency reporting system, reports are being signed by the in house radiologist without review as a courtesy to ensure prompt reporting. The interpreting r adiologist is fully responsible for the content of the report
== END 2023-05-22 02:45 | disposition home or self-care (01) ==
LOC: ER 22:37
DX: R06.00 Dyspnea, unspecified (principal); E87.6 Hypokalemia; I10 Essential (primary) hypertension; I50.9 Heart failure, unspecified; Z86.73 Personal history of transient ischemic attack (TIA), and cerebral infarction without residual deficits; Z79.82 Long term (current) use of aspirin
CPT/HCPCS: 93005; 85025; 80048; 36415; 83735; 80076; 84484; 83880; 71045; 96374; 99285; J1940

== ENCOUNTER 2023-06-22 16:58 | Inpatient (IN) | payer OTHER ==
[2023-06-22 18:06] LABS: ALT/SGPT 15 U/L (13-56); AST/SGOT 15 U/L (15-37); Albumin 3.5 g/dL (3.4-5.0); Albumin/Globulin Ratio 0.8 (1.1-1.8); Alkaline Phosphatase 111 U/L (45-117); Anion Gap 10.5 mEq/L (5.0-15.0); BUN Blood Urea Nitrogen 16 mg/dL (7-18); Bicarbonate 32 mEq/L (21-32); Bilirubin Total 0.5 mg/dL (0.2-1.0); Globulin 4.3 g/dL (2.3-3.5); Glomerular Filtration Rate 84 ml/min (=/>90); Glucose Level 164 mg/dL (74-106); Magnesium 1.9 mg/dL (1.6-2.4); NT PRO-BNP 2779 pg/mL (<450); Potassium 2.5 mEq/L (3.5-5.1); Protein, Total 7.8 g/dL (6.4-8.2); Sodium Level 136 mEq/L (136-145)
[2023-06-22 18:07] LABS: Bilirubin Direct < 0.2 mg/dL (0-0.2); Bilirubin Indirect, Calculated 0.3 mg/dL (0.2-0.8)
[2023-06-22 18:09] LABS: Troponin High Sensitivity 84.6 pg/mL (<58.9)
[2023-06-22 18:18] LABS: Absolute Eosinophils 0.2 K/uL (0-0.5); Absolute Lymphocytes (CBC) 2.3 K/uL (0.7-4.9); Absolute Monocytes 0.7 K/uL (0.1-1.3); Absolute Neutrophil 5.7 K/uL (1.8-8.0); Basophils % 0.3 % (0-1.3); Hemoglobin 10.8 g/dL (12.0-15.0); Lymphocytes % 25.9 % (15.3-44.8); MCH 23.4 pg (27.0-35.0); MCHC 31.7 g/dL (32.0-36.0); MCV 73.8 fL (80-100); MPV 8.3 fL (7.6-11.3); Monocytes % 7.5 % (3.3-12.3); Neutrophils % 64.3 % (41.7-73.7); Platelets 404 thou/uL (152-406); RBC Red Blood Cell Count 4.61 M/uL (3.86-4.86); Red Cell Distribution Width 16.8 % (12.1-15.2)
[2023-06-22] MEDS ORDERED: POTASSIUM 25 MEQ EFFERV TAB ONE (18:18)
[2023-06-22] MEDS ORDERED: KCL 20 MEQ/100 mL IVPB 100 ML IV ONE (18:18)
[2023-06-22] MEDS ORDERED: NA CHLORIDE 0.9% 250 ML ONE (18:18)
--- NOTE | 2023-06-22 18:46 | ER ---
Nurse's Notes [facility] Name: Erika Jacobson Age: 88 yrs Sex: Female : 1935 Arrival Date: 06/22/2023 Time: 16:58 Bed 5 Private MD: Diagnosis: CHF exacerbation;Hypokalemia Presentation: 06/21 17:14 Chief complaint: Patient's son or daughter states: SOB and increased leg swelling, hx ph of CHF, takes Bumex, no chest pain. Coronavirus screen: Vaccine status: Patient reports receiving the 2nd dose of the covid vaccine. Ebola Screen: No symptoms or risks identified at this time. Initial Sepsis Screen: Does the patient meet any 2 criteria? No. Patient's initial sepsis screen is negative. Does the patient have a suspected source of infection? No. Patient's initial sepsis screen is negative. Risk Assessment: Do you want to hurt yourself or someone else? Patient reports no desire to harm self or others. Onset of symptoms was June 22, 2023. 17:14 Method Of Arrival: Wheelchair 17:14 Acuity: ISHAN 3 ph Triage Assessment: 17:16 General: Appears in no apparent distress. Behavior is calm, cooperative. Pain: Denies ph pain. Respiratory: Reports shortness of breath on exertion Onset: The symptoms/episode began/occurred gradually, the patient has mild shortness of breath. Historical: - Home Meds: 17:16 aspirin 81 mg Oral chew 1 tab once daily [Active]; atorvastatin 20 mg Oral tablet 1 tab ph every day at bedtime [Active]; Bumex Oral [Active]; carvedilol 3.125 mg Oral tablet 0.5 tab 2 times per day [Active]; Lasix 40 mg Oral tablet 2 tabs morning and noon [Active]; losartan 100 mg Oral tab 1 tab once daily [Active]; - PMHx: 17:16 Asthma; Congestive heart failure; CVA; Hyperlipidemia; Hypertension; ph - PSHx: 17:16 choleycestectomy; hysterectomy; kidney stones; ph - Immunization history:: Adult Immunizations up to date. - Infectious Disease History:: Denies. - Social history:: Smoking status: Patient denies any tobacco usage or history of. Screenin:[facility] ED Fall Risk Assessment (Adult) History of falling in the last 3 months, mb9 including since admission No falls in past 3 months (0 pts) Confusion or Disorientation No (0 pts) Intoxicated or Sedated No (0 pts) Impaired Gait No (0 pts) Mobility Assist Device Used No (0 pt) Altered Elimination No (0 pt) Score/Fall Risk Level 0 - 2 = Low Risk Oriented to surroundings, Maintained a safe environment, Educated pt \T\ family on fall prevention, incl call for assistance when getting out of bed. Abuse screen: Denies threats or abuse. Nutritional screening: No deficits noted. Tuberculosis screening: No symptoms or risk factors identified. Assessment: 17:33 General: Appears in no apparent distress. Behavior is calm, cooperative, appropriate mb9 for age. Pain: Denies pain. Neuro: Liu Agitation-Sedation Scale (RASS): 0 - Alert and Calm Level of Consciousness is awake, alert, obeys commands, Oriented to person, place, time, situation, Appropriate for age. Cardiovascular: Heart tones S1 S2 present Patient's skin is warm and dry. Rhythm is regular. Respiratory: Reports shortness of breath cough that is Airway is patent Respiratory effort is even, unlabored, Respiratory pattern is regular, symmetrical, Breath sounds are clear bilaterally. GI: Abdomen is round non-distended, Bowel sounds present X 4 quads. Abd is soft and non tender X 4 quads. : No signs and/or symptoms were reported regarding the genitourinary system. EENT: No signs and/or symptoms were reported regarding the EENT system. Derm: Skin is pink, warm \T\ dry. Musculoskeletal: Range of motion: intact in all extremities. 18:25 Reassessment: No changes from previously documented assessment. Patient and/or family mb9 updated on plan of care and expected duration. Pain level reassessed. Patient is alert, oriented x 3, equal unlabored respirations, skin warm/dry/pink. 19:22 General: Appears in no apparent distress. comfortable, Behavior is calm, cooperative. lg3 Pain: Denies pain. Neuro: No deficits noted. Liu Agitation-Sedation Scale (RASS): 0 - Alert and Calm Level of Consciousness is awake, alert, obeys commands, Oriented to person, place, time, situation. Cardiovascular: No deficits noted. Heart tones S1 S2 present Capillary refill < 3 seconds Clubbing of nail beds is absent JVD is absent Patient's skin is warm and dry. Respiratory: No deficits noted. Reports shortness of breath cough that is Airway is patent Respiratory effort is even, unlabored, Respiratory pattern is regular, symmetrical, Breath sounds are clear bilaterally. GI: No deficits noted. No signs and/or symptoms were reported involving the gastrointestinal system. Abdomen is round non-distended, obese, Bowel sounds present X 4 quads. : No deficits noted. No signs and/or symptoms were reported regarding the genitourinary system. EENT: No deficits noted. No signs and/or symptoms were reported regarding the EENT system. Derm: No deficits noted. No signs and/or symptoms reported regarding the dermatologic system. Skin is intact, is healthy with good turgor, Skin is dry, Skin is normal, Skin temperature is warm. Musculoskeletal: Circulation, motion, and sensation intact. Range of motion: intact in all extremities. Vital Signs: 17:14 BP 143 / 98; Pulse 113; Resp 18; Temp 97; Pulse Ox 98% on R/A; Weight 61.23 kg; ph 18:25 BP 126 / 55; Pulse 80; Resp 18; Pulse Ox 95% on R/A; mb9 19:22 BP 128 / 52; Pulse 82; Resp 17 S; Pulse Ox 96% on R/A; lg3 ED Course: 17:01 Patient arrived in ED. ts1 17:03 Gael Peres DO is Attending Physician. ms3 17:16 Triage completed. ph 17:17 Arm band placed on Patient placed in an exam room, on a stretcher. ph 17:32 Yesenia Peres, RN is Primary Nurse. ld1 17:32 Primary Nurse role handed off by Yesenia Peres, VIVIENNE mb9 17:32 Cathy Beth, VIVIENNE is Primary Nurse. mb9 17:32 No provider procedures requiring assistance completed. Initial lab(s) drawn, by letitia sage sent to lab. EKG done, by ED staff, reviewed by Gael Peres DO. Inserted saline lock: 22 gauge in right antecubital area, using aseptic technique. Blood collected. 17:34 Placed in gown. Bed in low position. Call light in reach. Side rails up X 1. Provided letitia Education on: press call light if needing anything. Client placed on continuous cardiac and pulse oximetry monitoring. NIBP monitoring applied. bus monitor on. 18:07 XRAY Chest (1 view) In Process Unspecified. EDMS 18:46 Prince Jurado MD is Hospitalizing Provider. ms3 18:47 Dinh Lafleur MD is Hospitalizing Provider. ms3 18:48 Patient admitted, IV remains in place. mb9 19:02 Report given to Olu RN. mb9 20:18 Meka Erazo MD is Hospitalizing Provider. rt Administered Medications: 18:24 Not Given (Patient Refused): potassiumeffervescent tablet 50 meq PO once; dissolve in 4 mb9 ounces of water or juice 18:25 Drug: Potassium Chloride IV 20 mEq IV at calculated rate once; administer over 1-2 mb9 hours Route: IV; Rate: calculated rate; Site: right antecubital; 18:46 Follow up: Response: No adverse reaction; IV Status: Infusion continued upon admission mb9 Medication: 17:33 VIS not applicable for this client. mb9 Outcome: 18:46 Decision to Hospitalize by Provider. ms3 20:19 Decision to Hospitalize by Provider. rt 21:56 Admitted to Med/surg accompanied by tech, via stretcher, room 232, lg3 21:56 Condition: stable 21:56 Instructed on the need for admit, Demonstrated understanding of instructions, 21:57 Patient left the ED. lg3 Signatures: Dispatcher [employer] EDMS Akua Daniel RN RN ph Able, Lacie, RN RN lg3 Gael Peres DO DO ms3 Yesenia Peres RN RN ld1 Cathy Beth RN RN elin9 Bossman Bower MD MD rt Eloisa Hoyos PAS PAS ts1
--- NOTE | 2023-06-22 18:46 | EDPHYS ---
Physician Documentation [facility] Name: Erika Jacobson Age: 88 yrs Sex: Female : 1935 Arrival Date: 06/22/2023 Time: 16:58 Bed 5 Private MD: ED Physician Gael Peres HPI: 06/21 17:14 This 88 yrs old Female presents to ER via Unassigned with complaints of ms3 Shortness Of Breath. 17:14 88-year-old female with past medical history of hypertension, hyperlipidemia, ms3 congestive heart failure presents to the emergency department for shortness of breath that began last night and became worse today. Patient's son states the patient's shortness of breath is worse when laying flat or walking. Patient denies pain at this. Historical: - Home Meds: 17:16 aspirin 81 mg Oral chew 1 tab once daily [Active]; atorvastatin 20 mg Oral tablet 1 tab ph every day at bedtime [Active]; Bumex Oral [Active]; carvedilol 3.125 mg Oral tablet 0.5 tab 2 times per day [Active]; Lasix 40 mg Oral tablet 2 tabs morning and noon [Active]; losartan 100 mg Oral tab 1 tab once daily [Active]; - PMHx: 17:16 Asthma; Congestive heart failure; CVA; Hyperlipidemia; Hypertension; ph - PSHx: 17:16 choleycestectomy; hysterectomy; kidney stones; ph - Immunization history:: Adult Immunizations up to date. - Infectious Disease History:: Denies. - Social history:: Smoking status: Patient denies any tobacco usage or history of. ROS: 17:14 Constitutional: Negative for fever, and chills. Neck: Negative for injury, pain, and ms3 swelling, Cardiovascular: Negative for chest pain, and palpitations. Abdomen/GI: Negative for abdominal pain, nausea, vomiting, diarrhea, and constipation, 17:14 Skin: Negative for injury, rash, and discoloration, 17:14 Respiratory: Positive for shortness of breath, Exam: 17:14 Constitutional: This is a well developed, well nourished patient who is awake, alert, ms3 and in no acute distress. Head/Face: Normocephalic, atraumatic. Cardiovascular: Regular rate and rhythm with a normal S1 and S2. No gallops, murmurs, or rubs. Normal PMI, no JVD. No pulse deficits. Abdomen/GI: Soft, non-tender, with normal bowel sounds. No distension or tympany. No guarding or rebound. No evidence of tenderness throughout. 17:14 Respiratory: the patient does not display signs of respiratory distress, Respirations: normal, Breath sounds: rales, that are mild, are located in both bases, 17:27 ECG was reviewed by the Attending Physician. ms3 Vital Signs: 17:14 BP 143 / 98; Pulse 113; Resp 18; Temp 97; Pulse Ox 98% on R/A; Weight 61.23 kg; ph 18:25 BP 126 / 55; Pulse 80; Resp 18; Pulse Ox 95% on R/A; mb9 19:22 BP 128 / 52; Pulse 82; Resp 17 S; Pulse Ox 96% on R/A; lg3 MDM: 17:14 Patient medically screened. ms3 17:14 Differential diagnosis: CHF exacerbation, Myocardial Infarction pulmonary edema. ms3 18:48 Data reviewed: vital signs, nurses notes, lab test result(s), EKG, radiologic studies. ms3 Consideration of Admission/Observation Patient was admitted/placed on observation. Management of patient was discussed with the following: Hospitalist: Dia Griggs NP on behalf of Dr Lafleur. I considered the following discharge prescriptions or medication management in the emergency department Medications were administered in the Emergency Department. See MAR. Independent interpretation of the following test(s) in the Emergency Department EKG: See my EKG interpretation above X-Ray: My interpretation is CXR images reviewed by me show mild pulm edema. Historians other than the Patient: Family Member: Patient's son. Counseling: I had a detailed discussion with the patient and/or guardian regarding the historical points, exam findings, and any diagnostic results supporting the discharge/admit diagnosis, lab results, radiology results, the need for further work-up and treatment in the hospital. 06/21 17:16 Order name: Basic Metabolic Panel; Complete Time: 18:09 ms3 06/21 17:16 Order name: CBC with Diff; Complete Time: 18:37 ms3 06/21 17:16 Order name: LFT's; Complete Time: 18:09 ms3 06/21 17:16 Order name: Magnesium; Complete Time: 18:09 ms3 06/21 17:16 Order name: NT PRO-BNP; Complete Time: 18:09 ms3 06/21 17:16 Order name: Troponin HS; Complete Time: 18:09 ms3 06/21 18:10 Order name: Phosphorus; Complete Time: 18:37 ms3 06/21 19:29 Order name: Urinalysis w/ reflexes EDMS 06/21 19:29 Order name: CBC with Automated Diff EDMS 06/21 19:29 Order name: CBC with Automated Diff EDMS 06/21 19:29 Order name: CBC with Automated Diff EDMS 06/21 19:29 Order name: CBC with Automated Diff EDMS 06/21 19:29 Order name: Comprehensive Metabolic Panel EDMS 06/21 19:29 Order name: Comprehensive Metabolic Panel EDMS 06/21 19:29 Order name: Comprehensive Metabolic Panel EDMS 06/21 19:29 Order name: Comprehensive Metabolic Panel EDMS 06/21 19:29 Order name: Lipid Profile EDMS 06/21 19:29 Order name: Lipid Profile EDMS 06/21 19:29 Order name: Magnesium EDMS 06/21 19:29 Order name: Magnesium EDMS 06/21 19:29 Order name: Magnesium EDMS 06/21 19:29 Order name: Magnesium EDMS 06/21 19:29 Order name: Phosphorus EDMS 06/21 19:29 Order name: Phosphorus EDMS 06/21 19:29 Order name: Phosphorus EDMS 06/21 19:29 Order name: Phosphorus EDMS 06/21 19:29 Order name: Troponin High Sensitivity EDMS 06/21 19:29 Order name: Troponin High Sensitivity EDMS 06/21 19:29 Order name: Troponin High Sensitivity EDMS 06/21 21:00 Order name: Glucose, Ancillary Testing EDMS 06/21 17:16 Order name: XRAY Chest (1 view); Complete Time: 19:01 ms3 06/21 17:16 Order name: Cardiac monitoring; Complete Time: 17:34 ms3 06/21 17:16 Order name: EKG - Nurse/Tech; Complete Time: 17:34 ms3 06/21 17:16 Order name: IV Saline Lock; Complete Time: 17:34 ms3 06/21 17:16 Order name: Labs collected and sent; Complete Time: 17:34 ms3 06/21 17:16 Order name: O2 Per Protocol; Complete Time: 17:19 ms3 06/21 17:16 Order name: O2 Sat Monitoring; Complete Time: 17: ms3 EC: Rate is 100 beats/min. Rhythm is regular. Left axis deviation noted. NC interval is ms3 normal. QRS interval is prolonged. Clinical impression: NSR w/ Non-specific ST/T Changes and LBBB. Interpreted by me. Reviewed by me. Administered Medications: 18:24 Not Given (Patient Refused): potassiumeffervescent tablet 50 meq PO once; dissolve in 4 mb9 ounces of water or juice 18:25 Drug: Potassium Chloride IV 20 mEq IV at calculated rate once; administer over 1-2 mb9 hours Route: IV; Rate: calculated rate; Site: right antecubital; 18:46 Follow up: Response: No adverse reaction; IV Status: Infusion continued upon admission mb9 Disposition: 18:49 Critical Care:. ms3 Disposition Summary: 06/22/23 20:19 Hospitalization Ordered Notes: Hospitalization Status: Observation(06/22/23 20:19) rt Provider: Meka Erazo(06/22/23 20:19) rt Location: Telemetry/MedSurg (observation)(06/22/23 20:19) rt Condition: Stable(06/22/23 20:19) rt Problem: an acute exacerbation(06/22/23 20:19) rt Symptoms: are unchanged(06/22/23 20:19) rt Bed/Room Type: Standard(06/22/23 20:19) rt Room Assignment: [facility](06/22/23 21:01) Diagnosis - CHF exacerbation rt - Hypokalemia rt Forms: - Medication Reconciliation Form rt - SBAR form rt - Leadership Thank You Letter rt Critical care time excluding procedures: 18:49 Critical care time: Bedside Care: 30 minutes, Consultation: 5 minutes, Family ms3 Intervention: 5 minutes. Total time: 40 minutes Signatures: Dispatcher [employer] Akua Santana RN RN Belem Calero RN RN cg Gael Peres DO DO ms3 Samantha Rogers Mary Beth, RN RN mb9 Bossman Bower MD MD rt Corrections: (The following items were deleted from the chart) 17:17 17:17 BASIC METABOLIC PANEL+C.LAB.BRZ ordered. EDMS EDMS 17:17 17:17 CBC+H.LAB.BRZ ordered. EDMS EDMS 17:17 17:17 HEPATIC FUNCTION+C.LAB.BRZ ordered. EDMS EDMS 17:17 17:17 MAGNESIUM+C.LAB.BRZ ordered. EDMS EDMS 17:17 17:17 PROBNP+C.LAB.BRZ ordered. EDMS EDMS 17:17 17:17 Troponin High Sensitivity+C.LAB.BRZ ordered. EDMS EDMS 17:17 17:17 Chest Single View+RAD.RAD.BRZ ordered. EDMS EDMS 18:47 18:46 Claus [place] ms3 ms3 20:08 18:46 ms3 wm 20:09 18:46 Inpatient Admission ms3 wm 20:09 18:46 Telemetry/MedSurg (Inpatient) ms3 wm 20:09 18:46 Stable ms3 wm 20:09 18:46 new ms3 wm 20:09 18:46 are unchanged ms3 wm 20:09 18:46 Standard ms3 wm 20:09 18:46 Heart failure, unspecified ms3 wm 20:09 18:46 Hypokalemia ms3 wm 20:09 18:47 Dinh Lafleur ms3 wm 20:09 20:08 232 wm wm 21:01 20:19 rt cg
--- NOTE | 2023-06-22 18:56 | RAD REPORT ---
EXAM DESCRIPTION: RADChest Single View06/22/2023 6:06 pm CLINICAL HISTORY: DYSPNEA COMPARISON: Chest Single View dated 05/21/2023; Chest Single View dated 05/09/2023; Chest Single View d ated 05/08/2023; Chest Single View dated 05/04/2023 TECHNIQUE: Portable AP view of the chest. FINDINGS: The lungs are clear. No pneumothorax or effusion. The cardiomediastinal contours are unre markable. IMPRESSION: No acute cardiopulmonary process.
--- NOTE | 2023-06-22 19:21 | P.HP ---
Certification for Inpatient Patient admitted to: Inpatient With expected LOS: >2 Midnights Patient will require the following post-hospital care: None Practitioner: I am a practitioner with admitting privileges, knowledge of patient current condition, hospital course, and medical plan of care. Services: Services provided to patient in accordance with Admission requirements found in Title 42 Section 412.3 of the Code of Federal Regulations Patient History Date of Service: 06/23/23 Reason for admission: Hypokalemia, CHF exacerbation History of Present Illness: Ms. Abelardo Jacobson is an 88-year-old female with a past medical history of hypertension, hyperlipidemia, CHF, asthma, and a CVA. Unfortunately she is admitted frequently with congestive heart failure. Her last admission was in April 2023. Her last echo was May 05 2023 with severe global hypokinesis, severe reduced left ventricular systolic function, ejection fraction 20-25%, grade 2 diastolic dysfunction, severe mitral annular calcification, mild mitral regurgitation per Dr. Dick. CT chest on May 07, 2023 was read as "mild pulmonary edema, moderate consolidation both lung bases which may represent atelectasis, infiltrate or combination thereof. Small bilateral pleural effusions." On discharge summary on May 09, it was noted that the patient was aggressively diuresed during admission, she was to follow-up with her care information associate for evaluation of possible LifeVest. She was discharged with home oxygen. Her discharge medications were Bumex 2 mg twice daily, spironolactone 12.5 mg daily, midodrine 5 mg 3 times daily as needed, atorvastatin 40 mg nightly, Colace 100 mg twice daily, MiraLAX as needed. On return to the emergency department 06/22/23, the patient's children state that she has been weak, short of breath on exertion, and has increased swelling to her lower extremities. On laboratory evaluation she has an extremely low potassium at 2.5. On exam, she is alert, oriented, denies chest pain, palpitations, abdominal pain, nausea, vomiting, diarrhea, constipation. When asked if she is feeling poorly she states that she is not. In the emergency department, potassium replacement was started with 20 mEq IV and 50 skye-equivalents p.o. Her vital signs are 128/52, pulse 82 and regular, respiratory rate 17, pulse ox on room air 96%. She is in no acute distress, breath sounds with mild crackles in the bases, mild lower extremity edema. We were asked to admit the patient for electrolyte derangement, fluid overload, and a minimally increased troponin of 84.6. I asked that the patient not be diuresed until potassium at least 3.0. It was noted that Ms. Abelardo Jacobson refused p.o. potassium in the ED. Allergies No Known Allergies Allergy (Verified 09/03/18 08:32) Home medications list reviewed: Yes Home Medications: Aspirin Chewable [Aspirin Chewable*] 81 mg PO DAILY 02/15/22 Atorvastatin Calcium [Lipitor*] 20 mg PO BEDTIME 02/15/22 Ipratropium/Albuterol Sulfate [Iprat-Albut 0.5-3(2.5) mg/3 ml] 3 ml IH BEDTIME 01/06/23 Bumetanide See Rx Instructions .ROUTE .COMPLEX 03/16/23 Clopidogrel Bisulfate [Plavix] 75 mg PO DAILY 05/04/23 Atorvastatin Calcium [Lipitor] 40 mg PO BEDTIME #30 tab 05/08/23 Clopidogrel Bisulfate [Plavix*] 75 mg PO DAILY #30 tab 05/08/23 Docusate [Colace Cap*] 100 mg PO BID #30 cap 05/08/23 Ipratropium Neb [Atrovent*] 0.5 mg NEB [id number] #60 amp 05/08/23 Midodrine HCl [Proamatine*] 5 mg PO TID #90 tab 05/08/23 carvediloL [Coreg*] 3.125 mg PO BID 6AM 6PM #60 tab 05/08/23 predniSONE [Prednisone*] 20 mg PO BID #11 tab 05/08/23 Spironolactone [Aldactone*] 12.5 mg PO DAILY tab 05/10/23 - Past Medical/Surgical History Diabetic: No -: Hypertension -: Dyslipidemia -: CVA -: kidney stones -: Asthma -: Systolic heart failure -: Prediabetes -: Cholecystectomy Psychosocial/ Personal History: Patient lives at home with her children. - Social History Alcohol use: No CD- Drugs: No Caffeine use: No Place of Residence: Home Review of Systems 10-point ROS is otherwise unremarkable General: As per HPI Respiratory: As per HPI Cardiovascular: Edema, As per HPI Physical Examination - Physical Exam General: Alert, In no apparent distress, Oriented x3 HEENT: Atraumatic, Normocephalic Neck: Supple Respiratory: Normal air movement, Crackles/rales Cardiovascular: Regular rate/rhythm, Systolic murmur Capillary refill: <2 Seconds Gastrointestinal: Soft and benign Musculoskeletal: No clubbing Integumentary: No rashes Neurological: Normal speech, Normal tone Lymphatics: No axilla or inguinal lymphadenopathy External genitalia: Deferred Rectal: Deferred - Studies Laboratory Data (last 24 hrs) 06/22/23 06/22/23 06/22/23 17:28 17:28 17:28 WBC 8.90 Hgb 10.8 L Hct 34.0 L Plt Count 404 Sodium 136 Potassium 2.5 L* BUN 16 Creatinine 0.70 Glucose 164 H Phosphorus 2.5 Magnesium 1.9 Total Bilirubin 0.5 AST 15 ALT 15 Alkaline Phosphatase 111 Assessment and Plan - Plan HTN with Congestive heart failure exacerbation diuresis post potassium replacement continue regular medications, increase Spironolactone to BID for now Beta-fariha Strict Is & Os Daily weight Education regarding diet and treatment of congestive heart failure Electrolyte derangement Monitor and replete telemetry Plan: Nebs prn O2 per protocol CVA Neurochecks q 4h VRE prophylaxis asa, lovenox, plavix - Advance Directives Does patient have a Living Will: No Does patient have a Durable POA for Healthcare: No
[2023-06-22] MEDS ORDERED: NA CHLORIDE 0.9% 500 ML ONE (20:04)
[2023-06-22] MEDS: INSULIN REGULAR (HUMAN) 100 UNIT/ML SQ SCH ×2 (20:52→23:00)
[2023-06-22 21:00] LABS: Specific Gravity 1.006 (1.005-1.030); Sqamous Epithelial None Seen /HPF (None Seen); Urine Bacteria <20 /HPF (<20); Urine Bilirubin NEGATIVE (Negative); Urine Blood Negative (Negative); Urine Clarity Clear (Clear); Urine Color Colorless (Yellow); Urine Culture Reflex Order NOT NEEDED; Urine Glucose NEGATIVE (Negative); Urine Ketones NEGATIVE (Negative); Urine Microscopic Reflex YN ORDER UMIC; Urine Nitrite NEGATIVE (Negative); Urine Protein NEGATIVE (Negative); Urine RBC <5 /HPF (None Seen); Urine Urobilinogen Normal (Normal); Urine WBC <5 /HPF (<5); Urine pH 7.5 (5.0-7.0)
[2023-06-22] MEDS ORDERED: ALBUTEROL 2.5 MG/3 ML NEB SOL NEB PRN (21:58)
[2023-06-22] MEDS: KCL 20 MEQ/100 mL IVPB 20 MEQ/100 ML BAG IV SCH (22:59)
[2023-06-22] MEDS: NA CHLORIDE 0.9% 250 ML ONE (22:59)
[2023-06-22] MEDS: ATORVASTATIN 20 MG TAB PO SCH (23:00)
[2023-06-23] MEDS: IPRATROPIUM BROM 0.5MG/2.5ML NEB SCH (01:15)
[2023-06-23] MEDS: FUROSEMIDE 40 MG/4 ML VIAL ONE (02:47)
[2023-06-23] MEDS ORDERED: NITROGLYCERIN/D5W 50 MG/250 ML BTL IV SCH (03:00)
[2023-06-23 03:25] LABS: Arterial Blood Carboxyhemoglob 1.3 % (0-1.5); Blood Gas THB 12.5 g/dl (12-18)
[2023-06-23 03:27] LABS: Absolute Basophils 0.1 K/uL (0-0.5); Absolute Eosinophils 0.2 K/uL (0-0.5); Absolute Lymphocytes (CBC) 4.8 K/uL (0.7-4.9); Absolute Monocytes 0.5 K/uL (0.1-1.3); Absolute Neutrophil 6.3 K/uL (1.8-8.0); Basophils % 0.8 % (0-1.3); Eosinophils % 1.7 % (0-4.4); Hematocrit 37.4 % (36.0-45.0); Hemoglobin 11.9 g/dL (12.0-15.0); Lymphocytes % 40.3 % (15.3-44.8); MCH 23.6 pg (27.0-35.0); MCHC 31.8 g/dL (32.0-36.0); MCV 74.1 fL (80-100); MPV 8.3 fL (7.6-11.3); Monocytes % 4.4 % (3.3-12.3); Neutrophils % 52.8 % (41.7-73.7); Platelets 433 thou/uL (152-406); RBC Red Blood Cell Count 5.04 M/uL (3.86-4.86)
[2023-06-23] MEDS: NITROGLYCERIN/D5W 50 MG/250 ML BTL IV ONE (03:33)
[2023-06-23 03:50] LABS: AST/SGOT 17 U/L (15-37); Albumin 3.3 g/dL (3.4-5.0); Albumin/Globulin Ratio 0.8 (1.1-1.8); Alkaline Phosphatase 120 U/L (45-117); Anion Gap 8.5 mEq/L (5.0-15.0); BUN Blood Urea Nitrogen 15 mg/dL (7-18); Bicarbonate 28 mEq/L (21-32); Bilirubin Total 0.4 mg/dL (0.2-1.0); Globulin 4.2 g/dL (2.3-3.5); Glomerular Filtration Rate 77 ml/min (=/>90); Glucose Level 224 mg/dL (74-106); HDL Cholesterol 35 mg/dL (40-60); LDL Cholesterol, Calculated 123 mg/dL (<130); LDL Cholesterol,Calc NonReport 123; Magnesium 1.9 mg/dL (1.6-2.4); NT PRO-BNP 2665 pg/mL (<450); Phosphorus 3.2 mg/dL (2.5-4.9); Protein, Total 7.5 g/dL (6.4-8.2); Sodium Level 137 mEq/L (136-145); Troponin High Sensitivity 58.5 pg/mL (<58.9)
[2023-06-23 03:57] LABS: ALT/SGPT < 14 U/L (13-56)
[2023-06-23 03:59] LABS: Potassium 2.5 mEq/L (3.5-5.1)
[2023-06-23] MEDS ORDERED: POTASSIUM CL 40 MEQ in NA CHLORIDE 0.9% 500 ML IV SCH (04:00)
[2023-06-23] MEDS: KCL 20 MEQ/100 mL IVPB 100 ML IV SCH (05:00)
[2023-06-23] MEDS: FUROSEMIDE 40 MG/4 ML VIAL IV ONE (05:08)
[2023-06-23] MEDS: POTASSIUM CL SA 10 MEQ TAB PO ONE (05:16)
[2023-06-23] MEDS: carvediloL 3.125 MG TAB PO SCH (06:00)
--- NOTE | 2023-06-23 07:04 | P.PN ---
Date of Service: 06/23/23 Subjective: felt more SOB, weak, rundown at home for ~1-2 days prior to admission BiPAP overnight, now tolerating 4L NC reports compliance with home meds nausea/vomiting after given potassium afebrile, +denies fever at home ROS: 10 point ROS as noted above, otherwise negative Physical Exam: GEN: Alert, oriented, NAD HEENT: Normal conjunctiva, sclera anicteric CV: Regular rate and rhythm, trace-1+ bilateral lower extremity edema, Systolic murmur Pulm: nonlabored respirations on 4L NC, diminished at bases b/l, Crackles/rales ABD: Soft, nontender, nondistended Neuro: Normal speech, normal affect vitals reviewed Problem List: Acute on chronic combined systolic / diastolic CHF exacerbation Coronary Artery Disease, s/p PCI (April 2023 @[facility]) NSTEMI Bilateral small pleural effusions Hypokalaemia Hypertension Hyperlipidemia hx prior CVA Acute on chronic combined systolic / diastolic CHF exacerbation Coronary Artery Disease, s/p PCI (April 2023 @[facility]) NSTEMI Bilateral small pleural effusions Patient/family reports worsening dyspnea, weakness, lower extremity edema. Dyspnea worse when laying flat/activity Patient was to follow up with [facility] ~1 month after discharge per last hospitalization for repeat echo / evaluation for life vest / outpatient stress test . Discharged with home oxygen last visit in April. Recent echo 05/05/23: EF 20-25%, severe global hypokinesis, grade 2 diastolic dysfunction, severe mitral annular calcification, mild MR CXR (06/21): negative for any acute findings repeat CXR (06/22): diffuse bilateral interstitial predominant airspace disease / Likely pulmonary edema vs atypical pneumonia. +probable small bilateral pleural effusion troponins mildly elevated but trended flat. suspect demand ischemia Cardiology consulted s/p IV lasix 40 mg x1 overnight Start spironolactone 25 mg BID; increased from home dose 12.5 mg daily Start bumex 2 mg BID confirm home meds on NC, off bipap , feeling better discussed possible need for PICC if unable to tolerate PO or IV potassium Hypokalaemia refused PO potassium d/t nausea/vomiting replete as needed IV; may need PICC as noted above, discussed with son Daily labs Hypertension confirm home meds Hyperlipidemia continue statin hx prior CVA resume plavix, statin, aspirin 81 mg continue supportive care VTE: Lovenox Code: Full Dispo: Home, ~1-2 days Pending further diuresis / improvement of breathing
[2023-06-23] MEDS ORDERED: PNEUMOCOCCAL VACCINE 0.5 ML IMVAC ONE (08:00)
[2023-06-23] MEDS: BUMETANIDE 1 MG/4 ML VIAL IV SCH (08:05)
[2023-06-23] MEDS: Mupirocin NASAL 2 APPL/1 GM TUBE NAS SCH (08:05)
[2023-06-23] MEDS: CLOPIDOGREL 75 MG TABLET PO SCH (08:06)
[2023-06-23] MEDS: ENOXAPARIN 40 MG/0.4 ML SQ SCH (08:06)
[2023-06-23] MEDS: ASPIRIN EC 81 MG TAB PO SCH (08:06)
[2023-06-23] MEDS: MIDODRINE HCL 5 MG TABLET PO SCH (08:06)
[2023-06-23] MEDS: SPIRONOLACTONE 25 MG TABLET PO SCH (08:06)
[2023-06-23] MEDS: PIPER TAZO 3.375 GM in NA CHLORIDE 0.9% 100 ML IV SCH (08:06)
[2023-06-23] MEDS ORDERED: BUMETANIDE 1 MG/4 ML VIAL IV SCH (09:00)
[2023-06-23] MEDS: KCL 20 MEQ/100 mL IVPB 20 MEQ/100 ML BAG IV SCH (12:36)
--- NOTE | 2023-06-23 12:41 | RAD REPORT ---
EXAM DESCRIPTION: CT - Chest Angio - 06/23/2023 10:59 am CLINICAL HISTORY: RO PE COMPARISON: Thorax W/ Con dated 05/07/2023; Chest For Pe Angio dated 03/16/2023; Chest For Pe Angio christy ed 01/05/2023; Chest For Pe Angio dated 11/01/2022; Chest Single View dated 06/23/2023 TECHNIQUE: Thin axial CT images of the chest were obtained following administration of 100 mL Isovue 370 IV contrast. Multiplanar reconstructions, and maximum intensity projection reconstructions were generated and reviewed. Exam utilizes a protocol for optimal evaluation of pulmonary arterial tree. All CT scans are performed using dose optimization technique as appropriate and may include automated exposure control or mA/KV adjustment according to patient size. FINDINGS: Pulmonary arteries are normal. No emboli or other suspicious finding. No acute or signific ant aorta findings. Central predominant ground-glass as well as fluffy alveolar opacities more pronounced on the right. S mall bilateral layering pleural effusions. No pleural thickening or pneumothorax. No abnormal mediastinal or hilar masses or lymphadenopathy seen. No chest wall mass or abnormal axill iary lymphadenopathy. IMPRESSION: No evidence of acute central pulmonary emboli. Central predominant ground-glass and alveolar opacities with small bilateral layering effusions. Find ings favor pulmonary edema. multifocal pneumonia is considered less likely but not excluded.
[2023-06-23 12:48] LABS: Albumin 3.2 g/dL (3.4-5.0); Albumin/Globulin Ratio 0.8 (1.1-1.8); Anion Gap 8.2 mEq/L (5.0-15.0); Bilirubin Total 0.7 mg/dL (0.2-1.0); Magnesium 1.8 mg/dL (1.6-2.4); Potassium 3.2 mEq/L (3.5-5.1); Protein, Total 7.2 g/dL (6.4-8.2)
--- NOTE | 2023-06-23 15:22 | P.CNS ---
Date of Consult: 06/23/23 Chief Complaint: Hypokalemia, CHF exacerbation History of Present Illness: Patient with PMH of CAD s/p PCI recently at [facility], chronic combined systolic and diastolic heart failure presented with worsening SOB, MENDOZA and weakness, denies any chest pain, no palpitations, no syncope. Allergies No Known Allergies Allergy (Verified 09/03/18 08:32) Home Medications: Aspirin Chewable [Aspirin Chewable*] 81 mg PO DAILY 02/15/22 Atorvastatin Calcium [Lipitor*] 20 mg PO BEDTIME 02/15/22 Ipratropium/Albuterol Sulfate [Iprat-Albut 0.5-3(2.5) mg/3 ml] 3 ml IH BEDTIME 01/06/23 Bumetanide See Rx Instructions .ROUTE .COMPLEX 03/16/23 Clopidogrel Bisulfate [Plavix] 75 mg PO DAILY 05/04/23 Atorvastatin Calcium [Lipitor] 40 mg PO BEDTIME #30 tab 05/08/23 Clopidogrel Bisulfate [Plavix*] 75 mg PO DAILY #30 tab 05/08/23 Docusate [Colace Cap*] 100 mg PO BID #30 cap 05/08/23 Ipratropium Neb [Atrovent*] 0.5 mg NEB [id number] #60 amp 05/08/23 Midodrine HCl [Proamatine*] 5 mg PO TID #90 tab 05/08/23 carvediloL [Coreg*] 3.125 mg PO BID 6AM 6PM #60 tab 05/08/23 predniSONE [Prednisone*] 20 mg PO BID #11 tab 05/08/23 Spironolactone [Aldactone*] 12.5 mg PO DAILY tab 05/10/23 - Past Medical/Surgical History Diabetic: No -: Hypertension -: Dyslipidemia -: CVA -: kidney stones -: Asthma -: Systolic heart failure -: Prediabetes -: Cholecystectomy Psychosocial/ Personal History: Patient lives at home with her children. - Social History Smoking Status: Unknown if ever smoked Alcohol use: No CD- Drugs: No Caffeine use: No Place of Residence: Home Review of Systems 10-point ROS is otherwise unremarkable Physical Examination Temp Pulse Resp BP Pulse Ox 97.7 F 92 H 14 123/57 L 97 06/23/23 12:00 06/23/23 13:44 06/23/23 12:00 06/23/23 12:00 06/23/23 13:44 General: Alert HEENT: Atraumatic Neck: Supple Respiratory: Clear to auscultation bilaterally Cardiovascular: No edema, Normal S1 S2 Gastrointestinal: Normal bowel sounds Laboratory Data (last 24 hrs) 06/22/23 06/22/23 06/22/23 17:28 17:28 17:28 WBC 8.90 Hgb 10.8 L Hct 34.0 L Plt Count 404 Sodium 136 Potassium 2.5 L* BUN 16 Creatinine 0.70 Glucose 164 H Phosphorus 2.5 Magnesium 1.9 Total Bilirubin 0.5 AST 15 ALT 15 Alkaline Phosphatase 111 - Problems (1) HLD (hyperlipidemia) Current Visit: Yes Status: Acute Plan: Continue Lipitor 40 mg daily (2) Acute on chronic combined systolic and diastolic heart failure Current Visit: No Status: Acute Plan: agree with Bumex 2 mg IV BID lower Spirnolactone to 25 mg daily Start Coreg 3.125 mg po BID Continue to monitor input and output correct electrolytes (goal K>4, Mg>2) (3) CAD (coronary artery disease) Current Visit: No Status: Acute Plan: Continue ASA 81 mg daily Continue Plavix 75 mg daily.
[2023-06-23] MEDS ORDERED: ALBUTEROL 2.5 MG/3 ML NEB SOL NEB PRN (17:10)
--- NOTE | 2023-06-23 17:11 | P.CNS ---
Date of Consult: 06/23/23 Reason for Consult: Respiratory failure Chief Complaint: Hypokalemia, CHF exacerbation History of Present Illness: Patient is 88 years of age past medical history of hypertension hyperlipidemia she's also had a stroke. Is a history of severe global hypo kind nieces patient is [place]ican-speaking only son present at the bedside patient lives with her son apparently she was compliant with the emergency room returned to the emergency room complaining of worsening dyspnea lower extremity edema currently patient is doing well is not in any way suppressors are BiPAP alert and responsive Allergies No Known Allergies Allergy (Verified 09/03/18 08:32) Home Medications: Aspirin Chewable [Aspirin Chewable*] 81 mg PO DAILY 02/15/22 Atorvastatin Calcium [Lipitor*] 20 mg PO BEDTIME 02/15/22 Ipratropium/Albuterol Sulfate [Iprat-Albut 0.5-3(2.5) mg/3 ml] 3 ml IH BEDTIME 01/06/23 Bumetanide See Rx Instructions .ROUTE .COMPLEX 03/16/23 Clopidogrel Bisulfate [Plavix] 75 mg PO DAILY 05/04/23 Atorvastatin Calcium [Lipitor] 40 mg PO BEDTIME #30 tab 05/08/23 Clopidogrel Bisulfate [Plavix*] 75 mg PO DAILY #30 tab 05/08/23 Docusate [Colace Cap*] 100 mg PO BID #30 cap 05/08/23 Ipratropium Neb [Atrovent*] 0.5 mg NEB [id number] #60 amp 05/08/23 Midodrine HCl [Proamatine*] 5 mg PO TID #90 tab 05/08/23 carvediloL [Coreg*] 3.125 mg PO BID 6AM 6PM #60 tab 05/08/23 predniSONE [Prednisone*] 20 mg PO BID #11 tab 05/08/23 Spironolactone [Aldactone*] 12.5 mg PO DAILY tab 05/10/23 - Past Medical/Surgical History Diabetic: No -: Hypertension -: Dyslipidemia -: CVA -: kidney stones -: Asthma -: Systolic heart failure -: Prediabetes -: Cholecystectomy Psychosocial/ Personal History: Patient lives at home with her children. - Social History Smoking Status: Unknown if ever smoked Alcohol use: No CD- Drugs: No Caffeine use: No Place of Residence: Home Review of Systems General: Weakness Respiratory: Shortness of Breath Cardiovascular: Edema Physical Examination Temp Pulse Resp BP Pulse Ox 97.8 F 91 H 14 98/56 L 98 06/23/23 16:00 06/23/23 16:45 06/23/23 16:00 06/23/23 16:45 06/23/23 16:00 General: Alert, Cooperative Respiratory: Clear to auscultation bilaterally, Diminished Cardiovascular: Normal S1 S2, Edema (2+ edema) Gastrointestinal: Normal bowel sounds, Soft and benign Laboratory Data (last 24 hrs) 06/22/23 06/22/23 06/22/23 17:28 17:28 17:28 WBC 8.90 Hgb 10.8 L Hct 34.0 L Plt Count 404 Sodium 136 Potassium 2.5 L* BUN 16 Creatinine 0.70 Glucose 164 H Phosphorus 2.5 Magnesium 1.9 Total Bilirubin 0.5 AST 15 ALT 15 Alkaline Phosphatase 111 - Problems (1) Acute on chronic systolic heart failure Current Visit: No Status: Acute Plan: Patient is 88 years of age admitted with worsening dyspnea I suspect acute on chronic systolic heart failure CT pulmonary angiogram evidence of thromboembolism suggestive of heart failureLabs reviewed patient is severely hypokalemia normal Pro calcitonin level normal white countPatient is currently on is in [place] oxygen mildly hypoxic. Continue with aggressive potassium replacements diuretics SpironolactoneDoubt sepsis
[2023-06-23 17:59] LABS: Albumin 3.1 g/dL (3.4-5.0); Albumin/Globulin Ratio 0.8 (1.1-1.8); Bilirubin Total 0.6 mg/dL (0.2-1.0); Globulin 3.7 g/dL (2.3-3.5); Magnesium 1.8 mg/dL (1.6-2.4); Protein, Total 6.8 g/dL (6.4-8.2)
[2023-06-23] MEDS: ONDANSETRON 4 MG/2 ML VIAL IV PRN (19:37)
[2023-06-23] MEDS ORDERED: ATORVASTATIN 40 MG TAB PO SCH (21:00)
[2023-06-24 01:50] VITALS: BMI 25.4
[2023-06-24 05:02] LABS: Absolute Eosinophils 0.3 K/uL (0-0.5); Absolute Lymphocytes (CBC) 2.2 K/uL (0.7-4.9); Absolute Monocytes 0.6 K/uL (0.1-1.3); Absolute Neutrophil 5.3 K/uL (1.8-8.0); Basophils % 0.4 % (0-1.3); Eosinophils % 3.9 % (0-4.4); Hematocrit 29.2 % (36.0-45.0); Hemoglobin 9.3 g/dL (12.0-15.0); Lymphocytes % 25.7 % (15.3-44.8); MCH 23.6 pg (27.0-35.0); MCV 73.7 fL (80-100); MPV 8.6 fL (7.6-11.3); Monocytes % 7.2 % (3.3-12.3); Neutrophils % 62.8 % (41.7-73.7); Platelets 319 thou/uL (152-406); RBC Red Blood Cell Count 3.96 M/uL (3.86-4.86); Red Cell Distribution Width 17.1 % (12.1-15.2)
[2023-06-24 05:17] LABS: AST/SGOT 13 U/L (15-37); Albumin 2.7 g/dL (3.4-5.0); Albumin/Globulin Ratio 0.8 (1.1-1.8); Alkaline Phosphatase 93 U/L (45-117); Anion Gap 7.2 mEq/L (5.0-15.0); BUN Blood Urea Nitrogen 15 mg/dL (7-18); Bicarbonate 32 mEq/L (21-32); Bilirubin Total 0.6 mg/dL (0.2-1.0); Globulin 3.2 g/dL (2.3-3.5); Glomerular Filtration Rate 85 ml/min (=/>90); Glucose Level 121 mg/dL (74-106); Magnesium 1.9 mg/dL (1.6-2.4); Phosphorus 3.7 mg/dL (2.5-4.9); Potassium 3.2 mEq/L (3.5-5.1); Protein, Total 5.9 g/dL (6.4-8.2); Sodium Level 135 mEq/L (136-145)
[2023-06-24 05:19] LABS: ALT/SGPT < 14 U/L (13-56)
[2023-06-24] MEDS: POTASSIUM CL SA 10 MEQ TAB PO ONE (07:40)
--- NOTE | 2023-06-24 12:39 | P.PN ---
Date of Service: 06/24/23 Subjective: feeling better this morning, feeling nearly back to normal with breathing tolerating PO more, tolerated PO KCL replacement today has not ambulated yet appetite slightly improved ROS: 10 point ROS as noted above, otherwise negative Physical Exam: GEN: Alert, oriented, NAD HEENT: Normal conjunctiva, sclera anicteric CV: Regular rate and rhythm, trace bilateral lower extremity edema, Systolic murmur Pulm: nonlabored respirations on 2L NC, diminished at bases b/l ABD: Soft, nontender, nondistended Neuro: Normal speech, normal affect vitals reviewed Problem List: 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 Dyspnea worse when laying flat/activity Patient was to follow up with [facility] ~1 month after discharge per last hospitalization for repeat echo / evaluation for life vest / outpatient stress test . Discharged with home oxygen last visit in April. Recent echo 05/05/23: EF 20-25%, severe global hypokinesis, grade 2 diastolic dysfunction, severe mitral annular calcification, mild MR CTA chest (06/22): no PE. Likely pulmonary edema with small bilateral layering pleural effusions. Less likely multifocal pneumonia troponins mildly elevated but trended flat. suspect demand ischemia Cardiology consulted continue spironolactone 25 mg daily continue bumex 2 mg BID confirm home meds tolerating 2L NC, off bipap, feeling better Hypokalaemia intermittent nausea / vomiting secondary to oral potassium replete as needed IV improving tolerating PO better today Hypertension Continue home midodrine coreg on hold given low-normal BP on spironolactone at higher dose, review of EMR indicates possibly more sensitive / lower blood pressure when taking spironolactone in past and dose has been reduced at times Hyperlipidemia continue statin hx prior CVA continue plavix, statin, aspirin 81 mg continue supportive care VTE: Lovenox Code: Full Dispo: Home, ~1 day Pending further diuresis / potassium improves and remains stable downgrade from ICU today
[2023-06-24 13:09] LABS: Anion Gap 9.6 mEq/L (5.0-15.0); Magnesium 1.9 mg/dL (1.6-2.4); Potassium 3.6 mEq/L (3.5-5.1)
[2023-06-25 00:36] VITALS: O2SAT 98
[2023-06-25 04:36] VITALS: TEMP 97.8
[2023-06-25 05:08] LABS: Absolute Eosinophils 0.3 K/uL (0-0.5); Absolute Monocytes 0.5 K/uL (0.1-1.3); Absolute Neutrophil 7.1 K/uL (1.8-8.0); Basophils % 0.4 % (0-1.3); Eosinophils % 3.1 % (0-4.4); Hematocrit 30.8 % (36.0-45.0); Hemoglobin 9.8 g/dL (12.0-15.0); MCH 23.4 pg (27.0-35.0); MCHC 31.7 g/dL (32.0-36.0); MCV 73.9 fL (80-100); MPV 8.8 fL (7.6-11.3); Monocytes % 5.4 % (3.3-12.3); Neutrophils % 71.1 % (41.7-73.7); Platelets 352 thou/uL (152-406); RBC Red Blood Cell Count 4.17 M/uL (3.86-4.86); Red Cell Distribution Width 16.9 % (12.1-15.2)
[2023-06-25 05:20] LABS: Albumin/Globulin Ratio 0.8 (1.1-1.8); Anion Gap 7.5 mEq/L (5.0-15.0); Bilirubin Total 0.5 mg/dL (0.2-1.0); Globulin 3.9 g/dL (2.3-3.5); Phosphorus 4.1 mg/dL (2.5-4.9); Potassium 3.5 mEq/L (3.5-5.1); Protein, Total 6.9 g/dL (6.4-8.2)
--- NOTE | 2023-06-25 08:16 | P.DS ---
Admission Date: 06/22/23 Discharge Date: 06/25/23 Disposition: ROUTINE DISCHARGE Discharge Condition: GOOD Reason for Admission: Hypokalemia, CHF exacerbation Consultations: Cardiology - Dr. Dick / Dr. Tubbs Pulmonology - Dr. Bran Brief History of Present Illness: 88yo F, PMH: hypertension, hyperlipidemia, CHF, asthma, and a CVA. Unfortunately she is admitted frequently with congestive heart failure. Her last admission was in April 2023. Her last echo was May 05 2023 with severe global hypokinesis, severe reduced left ventricular systolic function, ejection fraction 20-25%, grade 2 diastolic dysfunction, severe mitral annular calcification, mild mitral regurgitation per Dr. Dick. CT chest on May 07, 2023 was read as "mild pulmonary edema, moderate consolidation both lung bases which may represent atelectasis, infiltrate or combination thereof. Small bilateral pleural effusions." On discharge summary on May 09, it was noted that the patient was aggressively diuresed during admission, she was to follow- up with her stretcher leveler operator for evaluation of possible LifeVest. She was discharged with home oxygen. Her discharge medications were Bumex 2 mg twice daily, spironolactone 12.5 mg daily, midodrine 5 mg 3 times daily as needed, atorvastatin 40 mg nightly, Colace 100 mg twice daily, MiraLAX as needed. On return to the emergency department 06/22/23, the patient's children state that she has been weak, short of breath on exertion, and has increased swelling to her lower extremities. On laboratory evaluation she has an extremely low potassium at 2.5. On exam, she is alert, oriented, denies chest pain, palpitations, abdominal pain, nausea, vomiting, diarrhea, constipation. When asked if she is feeling poorly she states that she is not. In the emergency department, potassium replacement was started with 20 mEq IV and 50 skye-equivalents p.o. Her vital signs are 128/52, pulse 82 and regular, respiratory rate 17, pulse ox on room air 96%. She is in no acute distress, breath sounds with mild crackles in the bases, mild lower extremity edema. We were asked to admit the patient for electrolyte derangement, fluid overload, and a minimally increased troponin of 84.6. I asked that the patient not be diuresed until potassium at least 3.0. It was noted that Ms. Abelardo Jacobson refused p.o. potassium in the ED. 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 CTA chest/Chest x-ray noted pulmonary edema with small bilateral layering pleural effusions. Echo report below. Troponins were elevated but trended flat secondary to demand ischemia. Cardiology was consulted. Patient was aggressively diuresised with IV bumex, spironolactone and patient's edema & respiratory status slowly improved with time. Patient was feeling better, breathing more comfortably on her home oxygen settings, lower extremity edema improved, and was deemed stable for discharge. Discussed with cardiology, no change in medications. Follow up with stretcher leveler operator in 1 week for further discussion. Initially increased her spironolactone 25mg twice daily to help with diuresis and potassium, however her blood pressure was noted to get lower / low-normal. So this was decreased to 25mg daily, with blood pressure still borderline. She appeared euvolemic on exam and wasn't eating/drinking much, so on discharge, recommended to resume her 12.5mg spironolactone for now. She is scheduled to follow up with her stretcher leveler operator this week. Check blood pressure around the same time each day. Advised to keep daily diary of blood pressure readings to take to follow up appointments for further adjustment of medications. Patient was noted to be hypokalemic throughout hospitalization (2.5 on admission). Her potassium was replaced while hospitalized and remained relatively stable for rest of hospitalization. Potassium on discharge: 3.5 Advised patient to continue potassium (20 meq kcl daily) for 3 days on discharge. Recommend to take additional potassium (20 meq kcl) when having to take extra bumex. Medications: Potassium (kcl) 20 meq daily for 3 days Take Potassium kcl 20 meq when having to take extra bumex Zofran as needed for nausea prior to taking potassium continue all other home medications as previously prescribed - bumex 2mg twice daily, 12.5 mg spironolactone, 3.125 carvedilol monitor blood pressure, hold carvedilol as previously instructed if blood pressure is low Follow up: PCP 3-5 days Cardiology as scheduled this week. Pulmonology 2-4 weeks Please call to schedule / confirm appointments recommend repeat chemistry panel to follow up on potassium levels. Echocardiogram this hospitalization (06/23/23) EF: 15-20% Severe global hypokinesis Diastolic dysfunction IVC collapsible, indicating normal RA filling pressures Physical Exam: GEN: Alert, oriented, NAD HEENT: Normal conjunctiva, sclera anicteric CV: Regular rate and rhythm, trace bilateral lower extremity edema, Systolic murmur Pulm: nonlabored respirations on 2L NC, clear bilaterally ABD: Soft, nontender, nondistended Neuro: Normal speech, normal affect Vital Signs/Physical Exam: Temp Pulse Resp BP Pulse Ox 97.8 F 73 16 106/69 99 06/25/23 04:00 06/25/23 04:00 06/25/23 04:00 06/25/23 04:00 06/25/23 04:00 Laboratory Data at Discharge: WBC 10.00 thou/uL (4.3-10.9) 06/25/23 04:46 Hgb 9.8 g/dL (12.0-15.0) L 06/25/23 04:46 Hct 30.8 % (36.0-45.0) L 06/25/23 04:46 Plt Count 352 thou/uL (152-406) 06/25/23 04:46 Sodium 135 mEq/L (136-145) L 06/25/23 04:31 Potassium 3.5 mEq/L (3.5-5.1) 06/25/23 04:31 BUN 21 mg/dL (7-18) H 06/25/23 04:31 Creatinine 0.75 mg/dL (0.55-1.02) 06/25/23 04:31 Glucose 144 mg/dL (74-106) H 06/25/23 04:31 Phosphorus 4.1 mg/dL (2.5-4.9) 06/25/23 04:31 Magnesium 2.0 mg/dL (1.6-2.4) 06/25/23 04:31 Total Bilirubin 0.5 mg/dL (0.2-1.0) 06/25/23 04:31 AST 16 U/L (15-37) 06/25/23 04:31 ALT 15 U/L (13-56) 06/25/23 04:31 Alkaline Phosphatase 112 U/L (45-117) D 06/25/23 04:31 Triglycerides 217 mg/dL (<150) H 06/23/23 03:08 Cholesterol 201 mg/dL (<200) H 06/23/23 03:08 HDL Cholesterol 35 mg/dL (40-60) L 06/23/23 03:08 Cholesterol/HDL Ratio 5.74 06/23/23 03:08 Home Medications: Aspirin Chewable [Aspirin Chewable*] 81 mg PO DAILY 02/15/22 Atorvastatin Calcium [Lipitor*] 20 mg PO BEDTIME 02/15/22 Ipratropium/Albuterol Sulfate [Iprat-Albut 0.5-3(2.5) mg/3 ml] 3 ml IH BEDTIME 01/06/23 Bumetanide See Rx Instructions .ROUTE .COMPLEX 03/16/23 Clopidogrel Bisulfate [Plavix] 75 mg PO DAILY 05/04/23 Atorvastatin Calcium [Lipitor] 40 mg PO BEDTIME #30 tab 05/08/23 Clopidogrel Bisulfate [Plavix*] 75 mg PO DAILY #30 tab 05/08/23 Docusate [Colace Cap*] 100 mg PO BID #30 cap 05/08/23 Ipratropium Neb [Atrovent*] 0.5 mg NEB [id number] #60 amp 05/08/23 Midodrine HCl [Proamatine*] 5 mg PO TID #90 tab 05/08/23 carvediloL [Coreg*] 3.125 mg PO BID 6AM 6PM #60 tab 05/08/23 Spironolactone [Aldactone*] 12.5 mg PO DAILY tab 05/10/23 Ondansetron [Zofran (Odt)*] 4 mg PO Q8H PRN #30 tab 06/25/23 Potassium Chloride [Micro-K] 10 meq PO DIRECTED #60 cap 06/25/23 New Medications: Potassium Chloride [Micro-K] 10 meq PO DIRECTED #60 cap Ondansetron [Zofran (Odt)*] 4 mg PO Q8H PRN #30 tab PRN Reason: Nausea / Vomiting Physician Discharge Instructions: PROBLEM: Congestive Heart Failure GOAL: Clear understanding of teaching Diet: Low Sodium Activity: as tolerated DME DME: Date Ordered: Name of Company: [employer] Services Needed: Name of Company: Date or Referral: IMMUNIZATION Influenza Vaccine Indicated: Influenza Vaccine Given: Date Given: Pneumonia Vaccine Indicated: Yes Pneumonia Vaccine Given: Date Given: Physician Discharge instructions: Patient presented with worsening lower extremity edema, dyspnea and was found to have an acute on chronic CHF exacerbation. CTA chest/Chest x-ray noted pulmonary edema with small bilateral layering pleural effusions. Troponins were elevated but trended flat secondary to demand ischemia. Cardiology was consulted. Patient was aggressively diuresised with IV bumex, spironolactone and patient's edema & respiratory status slowly improved with time. Patient was feeling better, breathing more comfortably on her home oxygen settings, lower extremity edema improved, and was deemed stable for discharge. Discussed with cardiology, no change in medications. Follow up with stretcher leveler operator in 1 week for further discussion. Initially increased her spironolactone 25mg twice daily to help with diuresis and potassium, however her blood pressure was noted to get lower / low-normal. So this was decreased to 25mg daily, with blood pressure still borderline. She appeared euvolemic on exam and wasn't eating/drinking much, so on discharge, recommended to resume her 12.5mg spironolactone for now. She is scheduled to follow up with her stretcher leveler operator this week. Check blood pressure around the same time each day. Advised to keep daily diary of blood pressure readings to take to follow up appointments for further adjustment of medications. Patient was noted to be hypokalemic throughout hospitalization (2.5 on admission). Her potassium was replaced while hospitalized and remained relatively stable for rest of hospitalization. Potassium on discharge: 3.5 Advised patient to continue potassium (20 meq kcl daily) for 3 days on discharge. Recommend to take additional potassium (20 meq kcl) when having to take extra bumex. Medications: Potassium (kcl) 20 meq daily for 3 days Take Potassium kcl 20 meq when having to take extra bumex Zofran as needed for nausea prior to taking potassium continue all other home medications as previously prescribed - bumex 2mg twice daily, 12.5 mg spironolactone, 3.125 carvedilol monitor blood pressure, hold carvedilol as previously instructed if blood pressure is low Follow up: PCP 3-5 days Cardiology as scheduled this week. Pulmonology 2-4 weeks Please call to schedule / confirm appointments recommend repeat chemistry panel to follow up on potassium levels. Echo (06/23/23): LVEF: 15-20% Severe global hypokinesis Diastolic dysfunction IVC collapsible, indicating normal RA filling pressures. Discussed with son, they have an appointment with her Access Control Officer this week. Discussed risk of irregular rhythms /vtach, and advised to call tomorrow to get set up for LifeVest, and discuss with Cardiology about possible need for defibrillator. Followup: NONE,NONE [Primary Care Provider] - Time spent managing pt's care (in minutes): 45
[2023-06-25] MEDS: POTASSIUM CL SA 10 MEQ TAB PO ONE (08:29)
[2023-06-25 08:32] VITALS: BP 111/58
[2023-06-25] MEDS ORDERED: SPIRONOLACTONE 25 MG TABLET PO SCH (09:00)
--- NOTE | 2023-06-26 08:04 | ECHO ---
HEIGHT: 5 ft 1 in WEIGHT: 135 lb 0 oz DATE OF STUDY: 06/23/[address]: Prince Jyotsna Jurado MD 2-DIMENSIONAL: YES M.MODE: YES DOPPLER: YES COLOR FLOW: YES TDS: NO PORTABLE: YES DEFINITY: NO BUBBLE STUDY: NO DIAGNOSIS: NSTEMI CARDIAC HISTORY: CATHERIZATION: NO SURGERY: NO PROSTHETIC VALVE: NO PACEMAKER: NO MEASUREMENTS (cm) DIASTOLIC (NORMALS) SYSTOLIC (NORMALS) IVSd 1.0 (0.6-1.2) LA Diam 2.7 (1.9-4.0) LVEF 15-20% LVIDd 4.1 (3.5-5.7) LVIDs 3.7 (2.0-3.5) %FS 9% LVPWd 1.1 (0.6-1.2) Ao Diam 2.2 (2.0-3.7) 2 DIMENSIONAL ASSESSMENT: RIGHT ATRIUM: NORMAL LEFT ATRIUM: NORMAL RIGHT VENTRICLE: NORMAL LEFT VENTRICLE: MILDLY DILATED TRICUSPID VALVE: TRACE OF TRICUSPID REGURGITATION MITRAL VALVE: NORMAL PULMONIC VALVE: NORMAL AORTIC VALVE: NORMAL PERICARDIAL EFFUSION: TRACE AORTIC ROOT: NORMAL LEFT VENTRICULAR WALL MOTION: SEVERE GLOBAL HYPOKINESIS. DOPPLER/COLOR FLOW: DIASTOLIC DYSFUNCTION. COMMENTS: 1. SEVERELY REDUCED LEFT VENTRICULAR SYSTOLIC FUNCTION, EJECTION FRACTION 15-20%, SEVERE GLOBAL HYPOKINESIS. 2. DIASTOLIC DYSFUNCTION. 3. INFERIOR VENA CAVA COLLAPSIBLE (NORMAL RIGHT ATRIAL FILLING PRESSURE). TECHNOLOGIST: VIDHI CHRISTENSEN
--- NOTE | 2023-06-26 10:20 | RAD REPORT ---
EXAM DESCRIPTION: RAD - Chest Single View - 06/23/2023 3:18 am CLINICAL HISTORY: Crackles, Phlegm Congestion COMPARISON: Chest x-ray 05/21/2023 TECHNIQUE: Single AP view of the chest. FINDINGS: Lung volumes adequate. Cardiac silhouette is normal in size. Thoracic aortic atherosclerosis. No pneumothorax. Probable small bilateral effusions. Diffuse bilateral interstitial predominant airspace disease. No acute bony finding. IMPRESSION: 1. Diffuse bilateral interstitial predominant airspace disease. Differential considerati ons include pulmonary edema versus atypical/viral pneumonia. 2. Probable small bilateral pleural effusions. Electronically signed by: Daniel Marino MD 06/23/2023 03:33 AM CDT Due to temporary technical issues with the PACS/Fluency reporting system, reports are being signed by the in house radiologist without review as a courtesy to ensure prompt reporting. The interpreting r adiologist is fully responsible for the content of the report.
--- NOTE | 2023-06-26 13:30 | EKG ---
Test Date: 2023-06-22 Test Time: 17:22:47 Compliance Spec: MB MEASUREMENT RESULTS: Intervals: Rate: 100 RI: 180 QRSD: 154 QT: 408 QTc: 526 [place]: P: 64 RI: 180 QRS: -42 T: 66 INTERPRETIVE STATEMENTS: Normal sinus rhythm Left axis deviation Left bundle branch block Abnormal ECG Compared to ECG 05/21/2023 22:56:37 Left-axis deviation now present Left bundle-branch block now present Sinus tachycardia no longer present Electronically Signed On 06-26-23 13:20:02 CDT by Preston Tubbs
== END 2023-06-25 10:50 | disposition home or self-care (01) | DRG 291 ==
LOC: ER 16:58 → ERHOLD 19:21 → 2ND 21:04 → 3RD-ICU 06-23 03:27
PROVIDERS: ADMIT Hospitalist; ATTEND Hospitalist
PROC: 5A09457 Assistance with Respiratory Ventilation, 24-96 Consecutive Hours, Continuous Positive Airway Pressure (ICD-10-PCS; principal; 2023-06-23)
PROC: 02HV33Z Insertion of Infusion Device into Superior Vena Cava, Percutaneous Approach (ICD-10-PCS; 2023-06-23)
DX: I11.0 Hypertensive heart disease with heart failure (principal); I50.23 Acute on chronic systolic (congestive) heart failure; I24.89 Other forms of acute ischemic heart disease; E87.6 Hypokalemia; E78.5 Hyperlipidemia, unspecified; I25.10 Atherosclerotic heart disease of native coronary artery without angina pectoris; Z79.82 Long term (current) use of aspirin; Z79.52 Long term (current) use of systemic steroids; Z79.02 Long term (current) use of antithrombotics/antiplatelets; Z90.49 Acquired absence of other specified parts of digestive tract; Z86.73 Personal history of transient ischemic attack (TIA), and cerebral infarction without residual deficits; Z79.899 Other long term (current) drug therapy; Z90.710 Acquired absence of both cervix and uterus
CPT/HCPCS: 36415; 71045; 71275; 80048; 80053; 80061; 80076; 81001; 82805; 82947; 83735; 83880; 84100; 84132; 84145; 84484; 85025; 93005; 93306; 94640; 94660; 94760; 96365; 99285; J1650; J1940; J2405; J2543; J3480; J7040; J7050; J7644; Q9967

== ENCOUNTER 2023-07-30 12:10 | Emergency (ER) | payer OTHER ==
[2023-07-30] MEDS ORDERED: NOREPINEPHRINE BITARTRATE/D5W 4 MG/250 ML BAG IV ONE (12:24)
[2023-07-30] MEDS ORDERED: TENECTEPLASE 50 MG/10 ML VIAL IV ONE (12:33)
--- NOTE | 2023-07-30 12:59 | ER ---
Nurse's Notes [facility] Name: Erika Jacobson Age: 88 yrs Sex: Female : 1935 Arrival Date: 07/30/2023 Time: 12:10 Bed 3 Private MD: Diagnosis: ST elevation (STEMI) myocardial infarction of unspecified site;Cardiac arrest, cause unspecified Presentation: 07/29 12:04 Chief complaint: EMS states: call out for unresponsive. pt was in [place] and collapsed. as6 bystanders initiated CPR. EMS established IO to leg leg, intubated with 7.0 mm tube 21 \T\ teeth. administered 3 rounds of epi, 300mg amino, NS, shocked pt x2 for v-tach. ROSC achieved upon arrival to ER. pulse lost and CPR resumed \T\[id number]. 12:04 Care prior to arrival: Oral intubation, CPR via thumper performed by bystander was as6 defibrillated Medication(s) given: Normal saline infusion, IV initiated. IO Glucose check: 170 Oxygen administered. via AMBU bag. Compressions began at 11:50. 12:58 Coronavirus screen: At this time, the client does not indicate any symptoms associated as6 with coronavirus-19. Ebola Screen: No symptoms or risks identified at this time. Initial Sepsis Screen: Does the patient meet any 2 criteria? No. Patient's initial sepsis screen is negative. Does the patient have a suspected source of infection? No. Patient's initial sepsis screen is negative. Risk Assessment: Do you want to hurt yourself or someone else? Patient reports no desire to harm self or others. Onset of symptoms was July 30, 2023 at 12:00. 12:58 Method Of Arrival: EMS: [facility] as6 12:58 Acuity: ISHAN 1 as6 Historical: - Allergies: 12:57 No Known Allergies; as6 - PMHx: 12:57 Asthma; Congestive heart failure; CVA; Hyperlipidemia; Hypertension; as6 - PSHx: 12:57 choleycestectomy; hysterectomy; kidney stones; as6 - Immunization history:: Adult Immunizations up to date. - Infectious Disease History:: Denies. - Social history:: Smoking status: Patient denies any tobacco usage or history of. Screenin:58 [facility] ED Fall Risk Assessment (Adult) History of falling in the last 3 months, as6 including since admission No falls in past 3 months (0 pts) Confusion or Disorientation No (0 pts) Intoxicated or Sedated No (0 pts) Impaired Gait No (0 pts) Mobility Assist Device Used No (0 pt) Altered Elimination No (0 pt) Score/Fall Risk Level 0 - 2 = Low Risk Maintained a safe environment. Abuse screen: Denies threats or abuse. Denies injuries from another. Nutritional screening: No deficits noted. Tuberculosis screening: No symptoms or risk factors identified. Assessment: 12:06 Cardiac rhythm is V tach. as6 12:06 CPR assessment: pupils fixed \T\ dilated, no respiratory effort, Ambu ventilation, pulses as6 present w/ compressions. 12:13 Cardiac rhythm is V tach. as6 12:17 Cardiac rhythm is V tach. as6 12:17 Cardiac rhythm is PEA. as6 12:19 Cardiac rhythm is PEA. as6 12:21 Cardiac rhythm is PEA. as6 12:23 Cardiac rhythm is bradycardia. as6 12:25 Cardiac rhythm is V tach. as6 12:27 Cardiac rhythm is PEA. as6 12:29 Cardiac rhythm is bradycardia, STEMI. as6 12:34 Cardiac rhythm is PEA. as6 12:36 Cardiac rhythm is bradycardia. as6 12:43 Cardiac rhythm is PEA. as6 12:45 Cardiac rhythm is PEA. as6 12:48 Cardiac rhythm is PEA. as6 Vital Signs: 13:20 Weight 85 kg; as6 ED Course: 12:10 Defibrillated with 200 joules. as6 12:13 Defibrillated with 200 joules. as6 12:15 Defibrillated with 200 joules. as6 12:17 Inserted saline lock: 20 gauge in right antecubital area, using aseptic technique. as6 12:25 Defibrillated with 200 joules. as6 12:32 Patient arrived in ED. kb3 12:40 Inserted saline lock: 18 gauge in left EJ, using aseptic technique. as6 12:53 Stevo Jean, VIVIENNE is Primary Nurse. as6 12:53 Raymond Lafleur MD is Attending Physician. ec2 12:57 Arm band placed on left wrist. as6 12:57 Placed in gown. Bed in low position. as6 12:59 Raymond Lafleur MD is Pronouncing Provider. ec2 12:59 Triage completed. as6 Administered Medications: 07/30 10:13 Discontinued: norepinephrine0.1 mcg/kg/min IV at calculated rate See Administration kb3 Instructions; (Standard concentration 4 mg / 250 mL D5W); Recommended max rate 3 mcg/kg/min; Titrate 0.05 mcg/kg/min as often as every 5 minutes to achieve goal (see titration policy); Goal parameter MAP greater than 65 mmHg. 07/29 12:11 Drug: EPINEPHrine 0.1mg/mL 1:10,000 1 mg IVP once Route: IVP; Site: Other; as6 12:48 Follow up: Response: Other kb3 12:12 Drug: amiodarone 150 mg IVP once Route: IVP; Site: Other; as6 12:48 Follow up: Response: Other kb3 12:12 Drug: EPINEPHrine 0.1mg/mL 1:10,000 1 mg IVP once Route: IVP; Site: right antecubital; as6 12:48 Follow up: Response: Other kb3 12:14 Drug: Lidocaine 100 mg IVP once Route: IVP; Site: Other; as6 12:48 Follow up: Response: Other kb3 12:16 Drug: EPINEPHrine 0.1mg/mL 1:10,000 1 mg IVP once Route: IVP; Site: Other; as6 12:48 Follow up: Response: Other kb3 12:19 Drug: Sodium Bicarbonate 1 amp IVP once; (50 mL); equals 50 mEq Route: IVP; Site: right as6 antecubital; 12:48 Follow up: Response: Other kb3 12:32 Drug: Levophed (norepinephrine) 0.1 mcg/kg/min IV See Administration Instructions; as6 (Standard concentration 4 mg / 250 mL D5W); Recommended max rate 3 mcg/kg/min; Titrate 0.05 mcg/kg/min as often as every 5 minutes to achieve goal (see titration policy); Goal parameter MAP greater than 65 mmHg. {Note: 30mcg/hr.} Route: IV; Rate: calculated rate; Site: right antecubital; 12:48 Follow up: Response: Other 3 07/30 10:11 Follow up: IV Status: Order to discontinue infusion; IV Intake: 25ml [facility] 07/29 12:34 Drug: EPINEPHrine 0.1mg/mL 1:10,000 1 mg IVP once Route: IVP; Site: right antecubital; as6 12:48 Follow up: Response: Other kb3 12:36 Drug: TNK FOR STROKE - Tenecteplase IV (Administer 10 ml NS flush BEFORE and as6 AFTER tenecteplase) 0.25 mg/kg at per protocol once; MAX DOSE 25 mg, IVP over 5 seconds {Co-Signature: ko1 (Migdalia Dewey RN).} Route: IV; Rate: per protocol; Site: right antecubital; 12:48 Follow up: Response: Other kb3 12:44 Drug: EPINEPHrine 0.1mg/mL 1:10,000 1 mg IVP once Route: IVP; Site: right antecubital; as6 12:48 Follow up: Response: Other kb3 Medication: 12:57 VIS not applicable for this client. as6 Intake: 07/30 10:11 IV: 25ml; Total: 25ml. kb3 Outcome: 07/29 12:48 Condition: as6 12:48 Outcome Patient as6 12:48 Patient : Time of 12:48 Pronounced by Raymond Lafleur MD Body to as6 home, 16:21 Patient left the ED. as6 Signatures: Stevo Jean RN RN as6 Tahmina Chen RN RN kb3 Raymond Lafleur MD MD ec2 Migdalia Dewey RN ko1 Corrections: (The following items were deleted from the chart) 13:43 12:29 Cardiac rhythm is bradycardia as6 as6
--- NOTE | 2023-07-30 12:59 | EDPHYS ---
Physician Documentation [facility] Name: Erika Jacobson Age: 88 yrs Sex: Female : 1935 Arrival Date: 07/30/2023 Time: 12:10 Bed 3 Private MD: ED Physician Raymond Lafleur HPI: 07/29 12:53 This 88 yrs old Female presents to ER via Unassigned with complaints of ec2 cardiac arrest/rosc. 12:53 Patient arrives today with ROSC. Patient was at [facility] suddenly collapsed to the [facility] ground, just prior complaining of chest pain. History of cardiac disease. Patient was intubated by EMS, history gathered from EMS. They given multiple rounds of epinephrine, given 300 mg of amnio, had shock x 2. Intubated in the field. Given bicarb.. Historical: - Allergies: 12:57 No Known Allergies; as6 - PMHx: 12:57 Asthma; Congestive heart failure; CVA; Hyperlipidemia; Hypertension; as6 - PSHx: 12:57 choleycestectomy; hysterectomy; kidney stones; as6 - Immunization history:: Adult Immunizations up to date. - Infectious Disease History:: Denies. - Social history:: Smoking status: Patient denies any tobacco usage or history of. ROS: 12:53 Constitutional: as per hpi ec2 Exam: 12:53 Constitutional: GEN: Unresponsive Head: atraumatic, intubated Ears: External ears are ec2 normal. CV: pulseless LUNGS: intubated, assisted respirations ABD: non-distended MSK: no evidence of trauma NEURO: Unresponsive Vital Signs: 13:20 Weight 85 kg; as6 Procedures: 12:57 CPR: See CPR flow sheet. Initial patient assessment: unresponsive, pupils fixed \T\ ec2 dilated, no respiratory effort, intubated, Ambu ventilation, pulses present w/ compressions. MDM: 12:10 Patient medically screened. ec2 12:53 Data reviewed: vital signs. ED course: Patient arrives status post ROSC, on transfer to [facility] her bed, patient was pulseless, we initiated compressions, ACLS and continued resuscitation. We given the patient multiple doses of epinephrine, additional bolus of amiodarone, lidocaine, bicarb. Patient had intermittent V. tach which was shocked. We obtained ROSC multiple times, I did obtain an EKG which I independently reviewed and interpreted myself, this showed concern for STEMI in the inferior leads with reciprocal depressions. I spoke to physician at [facility] due to concern for STEMI. I give the patient TNK. Patient returned into cardiac arrest, we resumed ACLS, despite our efforts were unable to regain pulses. I called time of at 1248. Patient with no detectable pulse on ultrasound, not organized cardiac activity noted, pupils are fixed and dilated, no pain response. See nursing note for medication administration and timing.. Administered Medications: 07/30 10:13 Discontinued: norepinephrine0.1 mcg/kg/min IV at calculated rate See Administration kb3 Instructions; (Standard concentration 4 mg / 250 mL D5W); Recommended max rate 3 mcg/kg/min; Titrate 0.05 mcg/kg/min as often as every 5 minutes to achieve goal (see titration policy); Goal parameter MAP greater than 65 mmHg. 07/29 12:11 Drug: EPINEPHrine 0.1mg/mL 1:10,000 1 mg IVP once Route: IVP; Site: Other; as6 12:48 Follow up: Response: Other kb3 12:12 Drug: amiodarone 150 mg IVP once Route: IVP; Site: Other; as6 12:48 Follow up: Response: Other kb3 12:12 Drug: EPINEPHrine 0.1mg/mL 1:10,000 1 mg IVP once Route: IVP; Site: right antecubital; as6 12:48 Follow up: Response: Other kb3 12:14 Drug: Lidocaine 100 mg IVP once Route: IVP; Site: Other; as6 12:48 Follow up: Response: Other kb3 12:16 Drug: EPINEPHrine 0.1mg/mL 1:10,000 1 mg IVP once Route: IVP; Site: Other; as6 12:48 Follow up: Response: Other kb3 12:19 Drug: Sodium Bicarbonate 1 amp IVP once; (50 mL); equals 50 mEq Route: IVP; Site: right as6 antecubital; 12:48 Follow up: Response: Other kb3 12:32 Drug: Levophed (norepinephrine) 0.1 mcg/kg/min IV See Administration Instructions; as6 (Standard concentration 4 mg / 250 mL D5W); Recommended max rate 3 mcg/kg/min; Titrate 0.05 mcg/kg/min as often as every 5 minutes to achieve goal (see titration policy); Goal parameter MAP greater than 65 mmHg. {Note: 30mcg/hr.} Route: IV; Rate: calculated rate; Site: right antecubital; 12:48 Follow up: Response: Other [facility] 07/30 10:11 Follow up: IV Status: Order to discontinue infusion; IV Intake: 25ml [facility] 07/29 12:34 Drug: EPINEPHrine 0.1mg/mL 1:10,000 1 mg IVP once Route: IVP; Site: right antecubital; as6 12:48 Follow up: Response: Other [facility] 12:36 Drug: TNK FOR STROKE - Tenecteplase IV (Administer 10 ml NS flush BEFORE and as6 AFTER tenecteplase) 0.25 mg/kg at per protocol once; MAX DOSE 25 mg, IVP over 5 seconds {Co-Signature: ko1 (Migdalia Dewey RN).} Route: IV; Rate: per protocol; Site: right antecubital; 12:48 Follow up: Response: Other 3 12:44 Drug: EPINEPHrine 0.1mg/mL 1:10,000 1 mg IVP once Route: IVP; Site: right antecubital; as6 12:48 Follow up: Response: Other 3 Disposition: 12:48 . ec2 13:04 Critical Care:. ec2 Disposition Summary: 07/30/23 12:59 Patient Notes: Pronouncing Physician: Raymond Lafleur ec2 Time of : 12:48 07/30/2023 ec2 Diagnosis - ST elevation (STEMI) myocardial infarction of unspecified site ec2 - Cardiac arrest, cause unspecified ec2 Critical care time excluding procedures: 13:04 Critical care time: Bedside Care: 30 minutes, Consultation: 5 minutes. Total time: 35 ec2 minutes Signatures: Stevo Jean RN RN as6 Raymond Lafleur MD MD ec2 Tahmina Chen RN kb3 Migdalia Dewey RN ko1 Corrections: (The following items were deleted from the chart) 12:53 12:53 Patient medically screened. ec2 ec2 12:57 12:57 ec2 ec2 13:04 12:53 ED course: Patient arrives status post ROSC, on transfer to her bed, patient was ec2 pulseless, we initiated compressions, ACLS and continued resuscitation. We given the patient multiple doses of epinephrine, additional bolus of amiodarone, lidocaine, bicarb. Patient had intermittent V. tach which was shocked. We obtained ROSC multiple times, I did obtain an EKG which I independently reviewed and interpreted myself, this showed concern for STEMI in the inferior leads with reciprocal depressions. I spoke to physician at [facility] due to concern for STEMI. I give the patient TNK. Patient returned into cardiac arrest, we resumed ACLS, despite our efforts were unable to regain pulses. I called time of at 1248. See nursing note for medication administration and timing.. ec2
--- NOTE | 2023-07-31 14:55 | EKG ---
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[employer]: [facility] MEASUREMENT RESULTS: Intervals: Rate: 55 DC: QRSD: 110 QT: 488 QTc: 466 [place]: P: DC: QRS: 129 T: -65 INTERPRETIVE STATEMENTS: Junctional rhythm with ventricular escape complexes Incomplete right bundle branch block Right ventricular hypertrophy Septal infarct, age undetermined Lateral infarct, age undetermined Marked ST abnormality, possible anterior subendocardial injury Abnormal ECG Compared to ECG 06/22/2023 17:22:47 Junctional rhythm now present Ventricular escape complex(es) now present Incomplete right bundle-branch block now present Right ventricular hypertrophy now present Electronically Signed On 07-31-23 14:51:36 CDT by Preston Tubbs
--- NOTE | 2023-07-31 14:55 | EKG ---
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
== END 2023-07-30 16:21 ==
LOC: ER 12:10
DX: I21.3 ST elevation (STEMI) myocardial infarction of unspecified site (principal); I46.9 Cardiac arrest, cause unspecified; I10 Essential (primary) hypertension
CPT/HCPCS: 92960; 92977; 93005 ×2; 92950 ×2; 99291; J3101